=== PATIENT | male | born 1955 | race Caucasian/White ===

== ENCOUNTER 2018-08-18 16:43 | Observation (INO) | payer OTHER, SELFPAY ==
[2018-08-18] VITALS (8 sets, daily range): BP systolic 114–160; BP diastolic 55–119; PULSE 54–67; RESP 16–18; TEMP 36.4–37; O2SAT 93–99; BMI 29.0; BMI 29.1; BMI 28.8
--- NOTE | 2018-08-18 17:00 | EKG12_ITS ---
Test Reason : CP Blood Pressure : / mmHG Vent. Rate : 061 BPM Atrial Rate : 061 BPM P-R Int : 170 ms QRS Dur : 088 ms QT Int : 414 ms P-R-T Axes : 050 022 057 degrees QTc Int : 416 ms Normal sinus rhythm Normal ECG Confirmed by ENEIDA CURRIE MD ([id number]), photography editor TONY FRENCH ([id number]) on 08/23/2018 3:57:15 PM Referred By: HUE Confirmed By:ENEIDA CURRIE MD
--- NOTE | 2018-08-18 17:00 | RAD_ITS ---
STUDY: X-RAY CHEST REASON FOR EXAM: Male, 62 years old. Chest pain TECHNIQUE: Single AP portable view of the chest. COMPARISON: None. FINDINGS: There are monitoring devices. The lungs are hyperexpanded. There are lower lung groundglass and interstitial increased opacities. There is no demonstrated pleural abnormality. Normal size heart. Normal mediastinum and emelia. Normal visualized pulmonary arteries. Normal visualized aortic arch and descending thoracic aorta. Normal visualized thoracic spine. Normal visualized ribs, clavicles, and shoulders. There is no demonstrated abnormality of the visualized soft tissue structures of the upper abdomen. RAD/Chest 1 View (Portable) IMPRESSION: Lower lung edema or infiltrate. Electronically Signed: Indio Hogan MD at 17:26 EDT , Service support ,
[2018-08-18 17:23] LABS: Absolute Lymphocyte Count 1.39 X10^3/ul (0.83-4.51); Absolute Neutrophil Count 5.1 X10^3/uL (2.0-7.7); Basophil# 0.03 X10^3/uL; Basophil% 0.4 % (0-1); Eosinophil# 0.34 X10^3/uL; Eosinophils% 4.5 % (0-5); Hematocrit 46.4 % (40-54); Hemoglobin 16.2 g/dl (13.0-16.5); Lymphocyte # 1.39 X10^3/ul (4.0); Lymphocyte % 18.5 % (19-41); Mean Corp Hgb Conc 34.9 g/gl (32-36); Mean Corpuscular Hgb 29.6 pg (27.0-32.0); Mean Corpuscular Volume 84.7 fL (80-94); Mean Platelet Vol. 10.4 fl (6.2-12.0); Neutrophil # 5.13 X10^3/uL (2.7-7.7); Neutrophil % 68.3 % (47-70); Platelet Count 147 K/mm3 (150-450); RBC Distribution Width CV 13.5 % (11.6-14.6); RBC Distribution Width SD 41.4 fl (35.1-43.9); Red Blood Count 5.48 M/mm3 (4.6-6.2); White Blood Count 7.5 K/mm3 (4.4-11.0)
[2018-08-18 17:40] LABS: POSITIVE COUNT NO; POSITIVE DIFFERENTIAL NO; POSITIVE MORPHOLOGY NO
[2018-08-18 17:46] LABS: Anion Gap 6 (5-15); BUN 24 mg/dL (7-18); BUN/Creat Ratio 22.4 RATIO (10-20); Calcium,Total 9.3 mg/dL (8.5-10.1); Chloride 107 mmol/L (98-107); Creatinine, Serum 1.07 mg/dL (0.70-1.30); EST Glomerular Filtration Rate 74 mL/min (>60); Est Glom Filt Rate - Afr Amer 89 mL/min (>60); Estimated Creatinine Clearance 62.94 ml/min; Glucose 95 mg/dL (74-106); Potassium 4.2 mmol/L (3.5-5.1); Sodium Level 139 mmol/L (136-145)
--- NOTE | 2018-08-18 18:56 | ED.VISSUMM ---
- ER Visit Summary Date of Service: 08/18/18 Chief Complaint: [Chest pain] History of Present Illness: The patient is a 62 M [presents the emergency department complaint chest pain over the last 6 days. Patient's had intermittent discomfort that seems to be typically brought on by activity and exertion. Patient states at times he feels like both arms fall asleep. Patient's been feeling fatigued. Patient denies any recent travel or surgery. Patient does have a history of coronary artery disease with cardiac stents. He does have a history of hypertension and high cholesterol. He believes his stents were placed in 1992.] Physical Examination: [HEENT-PERRLA, EOMI. Cranial nerves II through XII grossly intact. TMs clear. Mucous membranes moist. No adenopathy. Cardiovascular-regular rate and rhythm without murmur or ectopy Lungs-clear to auscultation, chest wall stable without crepitus or subcu emphysema Abdomen-normoactive bowel sounds, soft, nontender, no rebound or rigidity, no peritoneal signs. Extremities-intact ?4, normal range of motion, normal pulses, atraumatic] Test Results: [EKG obtained arrival shows sinus rhythm with a ventricular rate of 61 bpm with no acute ST segment changes. CBC with differential is normal. Chemistries were normal. Troponin was less than 0.015. And chest x-ray was read by radiology as lower lung edema or infiltrates. Clinically I do not feel patient has pneumonia.] Emergency Department Course and Treatment: [Patient had taken aspirin prior to coming the emergency department 162 mg.] Treatment Plan: [Admit for further workup and evaluation] Disposition: [Admit] Impression: [Chest pain-rule out acute coronary syndrome] This note was generated with [employer] dictation software. It may contain incorrect words, spelling, and punctuation that were not noted in review of the chart prior to signing ED Disposition - Plan for ED Patient: Chief Complaint: Chest Pain Referrals: Jacob Jennings [Primary Care Provider] -
--- NOTE | 2018-08-18 19:18 | PCM.HP.STD ---
Problem List (1) Chest pain Status: Acute History of Present Illness Date of Admission: 08/18/18 Chief Complaint: chest pain The patient is a 62 year old M with a history of hypertension, hyperlipidemia and nicotine dependence. He was admitted through the ED on 08/18/2018 with a complaint of episodic chest pain over the past 6 days. He states chest pain is stabbing, retrosternal and left-sided, aggravated by exertion and relieved by rest. He also complains of worsening fatigue and mild shortness of breath. He denies any recent history of long distance travel, any surgery or any history of DVT or PE. He does have a history of coronary artery disease status post 5 stents the last of which was he states was in 1992 in [facility]. He denies any lightheadedness or dizziness, any palpitations, abdominal pain, shortness of breath, any diarrhea vomiting. EKG done in the ED showed no acute ST changes and CBC and CMP were unremarkable. Initial troponin was negative. Chest x-ray showed lower lung edema or infiltrate. Radiology reading. He has been admitted to be managed for chest pain to rule out ACS. [] Past Medical History Allergies No Known Allergies Allergy (Verified 08/18/18 18:15) Home Medications: Ambulatory Orders Medication Instructions Recorded Aspirin E.C. [Ecotrin] 81 mg PO DAILY 08/18/18 Atenolol 50 mg PO DAILY 08/18/18 Enalapril Maleate 20 mg PO DAILY 08/18/18 Enalapril Maleate [Vasotec] 10 mg PO DAILY 08/18/18 Rosuvastatin Calcium [Crestor] 40 mg PO DAILY 08/18/18 Surgical History: no surgical history Psychiatric History: No pertinent psych hx Lives: Spouse/ Significant Other Smoking Status: Current every day smoker Tobacco Use: Cigarettes - 2 packs daily for ~ 40 years Alcohol: Occasional Drugs: None - *Family History Paternal History Items: Diabetes, Heart Disease, Hypertension Review of Systems Constitutional: Denies: Chills, Fever, Weight Change Eyes: Denies: Blurred vision HEENT: Denies: Head Aches, Sinus Congestion, Sinus Drainage Cardiovascular: Reports: Chest Pain. Denies: Chest Pressure, Chest Tightness, Edema, Light Headedness, Orthopnea, Palpitations, Paroxysmal Noc. Dyspnea, Syncope Respiratory: Reports: Shortness of breath upon exertion. Denies: Cough, Shortness of Breath, Shortness of breath at rest, Sputum production Gastrointestinal: Denies: Abdominal Pain, Nausea, Vomiting Genitourinary: Denies: Dysuria Musculoskeletal: Denies: Joint Pain, Joint Tenderness Skin: Denies: Rash, Wounds Neurological: Denies: Numbness, Tingling, Focal weakness Psychiatric: Denies: Anxiety, Depression, Homicidal Ideations, Suicidal Ideations Hematologic/ Lymphatic: Denies: Easy Bruising, Easy Bleeding VTE Information - Inpt Only VTE Present on Admission: No VTE Mechan Device Prophylaxis: None VTE Pharm Prophylaxis ordered?: Yes Patient Problems: Active and Suspected Problems Chest pain (Acute) - Physical Exam General: Alert, Oriented x3, Cooperative, No apparent distress HEENT: Atraumatic, PERRLA, EOMI, Normocephalic Oral: Moist Mucosa Neck: Supple, No JVD, Negative Carotid Bruits Lungs: Clear to auscultation, Normal air movement, No rhonchi, No wheeze, No rales Cardiovascular: Regular rate, Regular Rhythm, Normal S1, Normal S2, No murmurs Abdomen: Bowel Sounds Present, Soft, Non Tender, Non-Distended, No Hepato-splenomegaly Extremities: No clubbing, No cyanosis, No edema, Capillary Refill Less than 3 Seconds Skin: No rashes, No breakdown Musculoskeletal: No Tenderness to Palpation of Joints or Extremities Lymphatic: No Cervical, Supraclavicular, or Inguinal Adenopathy Neurological: Cranial nerves II-XII grossly intact, Neuro grossly intact, Motor Exam 5/5 strength throughout Psych/Mental Status: Normal Affect, Appropriate, Alert and oriented to time, place, person, mood and affect Vital Signs Temp Pulse Resp BP Pulse Ox 97.5 F L 59 L 16 160/73 H 98 08/18/18 16:44 08/18/18 16:44 08/18/18 16:44 08/18/18 16:44 08/18/18 17:01 Oxygen Delivery Method Room Air Weight: 180 lb Body Mass Index (BMI) 29.0 Laboratory Tests Past 24 Hrs 08/18/18 08/18/18 17:05 17:05 WBC 7.5 RBC 5.48 Hgb 16.2 Hct 46.4 MCV 84.7 MCH 29.6 MCHC 34.9 RDW 13.5 RDW Differential 41.4 Plt Count 147 L MPV 10.4 Immature Gran % (Auto) 0.300 Neut % (Auto) 68.3 Lymph % (Auto) 18.5 L [place] % (Auto) 8.0 Eos % (Auto) 4.5 Baso % (Auto) 0.4 Absolute Neuts (auto) 5.1 Absolute Lymphs (auto) 1.39 Total Counted Not Reportable Sodium 139 Potassium 4.2 Chloride 107 Carbon Dioxide 26.0 Anion Gap 6 BUN 24 H Creatinine 1.07 Estim Creat Clear Calc 62.94 Est GFR (MDRD) Af Amer 89 Est GFR (MDRD) Non-Af 74 BUN/Creatinine Ratio 22.4 H Glucose 95 Calcium 9.3 Troponin I < 0.015 Assessment/Plan All Active Problems Chest pain (Acute) 62-year-old male with a history of CAD status post stents, hypertension hyperlipidemia presenting with a 6-day history of episodic chest pain. 1. Atypical chest pain, to rule out ACS admit to PCU with telemetry SL nitroglycerin prn aspirin 81mg daily check lipid panel and A1C cycle troponins stress test tomorrow morning 2. CAD status post stents Had 5 stents placed last one in 1992 at [facility]. On aspirin and rosuvastatin. Will continue. 3. Hypertension: Fairly controlled. On atenolol 50 mg daily and enalapril 30 mg daily. 4. Nicotine dependence: Smokes 2 packs daily for the past 40 years. Patient counseled extensively to quit. Inpatient smoking consult. Nicotine patch 21 mg daily. DVT prophylaxis: Heparin CODE STATUS: Full code Patient and counseled extensively about differences between full code, DNR CCA and DNR CCA. Patient elects to be full code. Total [id number] time 17 minutes. Code Visit OBSV E&M: 01105 Initial observation care L3 Procedures: 30028 Advncd Care Plan 30 Min
[2018-08-18] MEDS: Heparin Injection (Vial) 5,000 UNIT/ML VIAL 5000 UNIT SC (21:45)
--- NOTE | 2018-08-18 21:45 | EKG12_ITS ---
Test Reason : ADMISSION EKG Blood Pressure : / mmHG Vent. Rate : 058 BPM Atrial Rate : 058 BPM P-R Int : 180 ms QRS Dur : 084 ms QT Int : 442 ms P-R-T Axes : 059 028 061 degrees QTc Int : 433 ms Sinus bradycardia Otherwise normal ECG When compared with ECG of 18-AUG-2018 16:48, MANUAL COMPARISON REQUIRED, DATA IS UNCONFIRMED Confirmed by ROSEY BAUTISTA, ENEIDA ([id number]), purchasing expeditor TONY FRENCH ([id number]) on 08/23/2018 4:07:00 PM Referred By: BRANDAN Confirmed By:ENEIDA CURRIE MD
[2018-08-19 03:04] VITALS: PULSE 57
[2018-08-19 03:43] VITALS: BP 141/66; PULSE 60; RESP 14; TEMP 36.9; O2SAT 93
[2018-08-19 05:33] VITALS: BP 130/70; PULSE 61; RESP 16; TEMP 36.5; O2SAT 93
[2018-08-19] MEDS: Aspirin 81 MG TAB.CHEW PO (05:38)
[2018-08-19] MEDS: Lisinopril 10 MG Tablet 30 MG PO (05:38)
--- NOTE | 2018-08-19 05:55 | EKG12_ITS ---
Test Reason : AM EKG Blood Pressure : / mmHG Vent. Rate : 057 BPM Atrial Rate : 057 BPM P-R Int : 186 ms QRS Dur : 088 ms QT Int : 436 ms P-R-T Axes : 071 029 056 degrees QTc Int : 424 ms Sinus bradycardia Otherwise normal ECG When compared with ECG of 18-AUG-2018 20:10, MANUAL COMPARISON REQUIRED, DATA IS UNCONFIRMED Confirmed by ROSEY BAUTISTA, ENEIDA ([id number]), senior technical editor TONY FRENCH ([id number]) on 08/23/2018 4:03:56 PM Referred By: ILEANA Confirmed By:EENIDA CURRIE MD
[2018-08-19 06:44] LABS: Absolute Lymphocyte Count 1.45 X10^3/ul (0.83-4.51); Absolute Neutrophil Count 5.4 X10^3/uL (2.0-7.7); Basophil# 0.03 X10^3/uL; Basophil% 0.4 % (0-1); Eosinophil# 0.33 X10^3/uL; Eosinophils% 4.2 % (0-5); Hematocrit 46.1 % (40-54); Hemoglobin 16.1 g/dl (13.0-16.5); Lymphocyte # 1.45 X10^3/ul (4.0); Lymphocyte % 18.4 % (19-41); Mean Corp Hgb Conc 34.9 g/gl (32-36); Mean Corpuscular Hgb 29.4 pg (27.0-32.0); Mean Corpuscular Volume 84.1 fL (80-94); Mean Platelet Vol. 10.9 fl (6.2-12.0); Monocyte# 0.61 X10^3/uL; Monocyte% 7.7 % (0-10); Neutrophil # 5.41 X10^3/uL (2.7-7.7); Neutrophil % 68.7 % (47-70); Platelet Count 156 K/mm3 (150-450); RBC Distribution Width CV 13.8 % (11.6-14.6); RBC Distribution Width SD 42.3 fl (35.1-43.9); Red Blood Count 5.48 M/mm3 (4.6-6.2); White Blood Count 7.9 K/mm3 (4.4-11.0)
[2018-08-19 06:47] LABS: POSITIVE COUNT NO; POSITIVE DIFFERENTIAL NO; POSITIVE MORPHOLOGY NO
[2018-08-19 06:50] LABS: Prothrombin Time (Protime)PT. 12.9 SECONDS (11.7-14.9)
[2018-08-19 06:51] LABS: Partial Thromboplast Time 29.3 Seconds (24.1-36.2)
[2018-08-19 07:11] LABS: Anion Gap 7 (5-15); BUN 26 mg/dL (7-18); BUN/Creat Ratio 23.6 RATIO (10-20); Chloride 108 mmol/L (98-107); Cholesterol 144 mg/dL (200); EST Glomerular Filtration Rate 71 mL/min (>60); Est Glom Filt Rate - Afr Amer 86 mL/min (>60); Estimated Creatinine Clearance 61.22 ml/min; Glucose 83 mg/dL (74-106); High Density Lipoprotein 33 mg/dL; Sodium Level 139 mmol/L (136-145); Triglycerides 125 mg/dL; Very Low Density Lipoprotein 25 mg/dL (5-40)
[2018-08-19 07:54] LABS: Hemoglobin A1c 5.4 % (4.2-6.3)
[2018-08-19 08:31] VITALS: PULSE 65
--- NOTE | 2018-08-19 09:17 | STRESSREP_ITS ---
Stress Test Report Date: 08/19/2018 Procedure: Exercise tolerance test/imaging study Indications: Chest pain; CAD; PCI Consent: Per the patient Procedure: The patient exercised on a Thaddeus protocol for 5 minutes completing Stage I and 2 minutes of Stage II achieving a peak heart rate of 131 bpm (83 % predicted maximal heart rate) with a peak blood pressure 180/82 mmHg and a peak MET capacity of 7 METs. The baseline ECG demonstrated normal sinus rhythm. The peak exercise ECG demonstrated somatic/motion artifact with no obvious ECG changes. There were occasional PACs and PVCs during exercise. The functional capacity was considered average. There was no complaint of chest discomfort during exercise or recovery. The examination was discontinued secondary to leg discomfort. Impression: 1. Technically inadequate (percent predicted maximal heart rate less than 85%) exercise tolerance test 2. Peak exercise ECG with somatic/motion artifact with no obvious ECG changes at the heart rate achieved 3. There were occasional PACs and PVCs during exercise 4. Nuclear images pending Myocardial perfusion imaging study: Technique: The patient was injected with 11.4 mCi of technetium 99m Cardiolite and subsequently rest SPECT Cardiolite nuclear imaging was obtained in the horizontal long, vertical long, and short axis views. The patient exercised on a Thaddeus protocol for 5 minutes completing Stage I and 2 minutes of Stage II achieving a peak heart rate of 131 bpm (83 % predicted maximal heart rate) with a peak blood pressure 180/82 mmHg and a peak MET capacity of 7 METs. The patient was injected with 33.7 mCi of technetium 99m Cardiolite and subsequently stress SPECT Cardiolite nuclear imaging was obtained in the horizontal long, vertical long, and short axis views. A gated Cardiolite study at peak stress was obtained. Interpretation: Rest and stress SPECT Cardiolite nuclear imaging status post realignment, normalization, and attenuation correction, demonstrates areas of extracardiac/gastrointestinal tracer uptake at rest, otherwise, there appears to be relative uniform tracer uptake and myocardial perfusion appearing within normal limits. There is end systolic thickening and brightening. The gated Cardiolite study demonstrates myocardial thickening and inward wall motion. The reported LVEF is 86 %. Impression: 1. Rest and stress SPECT Cardiolite nuclear imaging demonstrate relative uniform tracer uptake and myocardial perfusion appearing within normal limits at the heart rate achieved. 2. The gated Cardiolite study reports an LVEF of 86 %. This note was generated with [employer] software. It may contain incorrect words, spelling, and punctuation that were not noted in checking the note before signing.
--- NOTE | 2018-08-19 10:14 | PCM.DC ---
- Discharge Diagnoses Current Active Problems: Current Active and Chronic Problems Chest pain (Acute) You will use the following diet at home:: Cardiac Your food should be the consistency of: Regular Discharge Activity: Return to Normal Activity Instructions: ED Chest Pain NonCardiac Allergies/Adverse Reactions: Allergies No Known Allergies Allergy (Verified 08/18/18 18:15) Medications to take at Discharge Aspirin E.C. [Ecotrin] 81 mg PO DAILY 08/18/18 Atenolol 50 mg PO DAILY 08/18/18 Enalapril Maleate 20 mg PO DAILY 08/18/18 Enalapril Maleate [Vasotec] 10 mg PO DAILY 08/18/18 Rosuvastatin Calcium [Crestor] 40 mg PO DAILY 08/18/18 Primary Care Physician: Jacob Jennings [Primary Care Provider] - Please follow up with your Primary Care Physician in: in 1-2 weeks Test Results: Test results from this visit will be discussed in further detail at your follow-up appointment, if applicable. Proposed Discharge Date: 08/19/18
--- NOTE | 2018-08-19 10:17 | DCINST_ITS ---
- Discharge Diagnoses Current Active Problems: Current Active and Chronic Problems Chest pain (Acute) You will use the following diet at home:: Cardiac Your food should be the consistency of: Regular Discharge Activity: Return to Normal Activity Instructions: ED Chest Pain NonCardiac Allergies/Adverse Reactions: Allergies No Known Allergies Allergy (Verified 08/18/18 18:15) Medications to take at Discharge Aspirin E.C. [Ecotrin] 81 mg PO DAILY 08/18/18 Atenolol 50 mg PO DAILY 08/18/18 Enalapril Maleate 20 mg PO DAILY 08/18/18 Enalapril Maleate [Vasotec] 10 mg PO DAILY 08/18/18 Rosuvastatin Calcium [Crestor] 40 mg PO DAILY 08/18/18 Primary Care Physician: Jacob Jennings [Primary Care Provider] - Please follow up with your Primary Care Physician in: in 1-2 weeks Test Results: Test results from this visit will be discussed in further detail at your follow- up appointment, if applicable. Proposed Discharge Date: 08/19/18
--- NOTE | 2018-08-19 10:21 | PCM.DC.SUM ---
Discharge Date and Diagnosis Date of Admission: 08/18/18 Date of Discharge: 08/19/18 - Primary Discharge Diagnosis Active and Suspected Problems Chest pain (Acute) Hospital Course and Treatment Imaging Results: 08/19/18 05:55 Nuclear Stress Test - Treadmil [NM] AM (NON MEDS) Summary of Care Provided: The patient is a 62 year old M with past medical history significant for hypertension, dyslipidemia tobacco dependence presented with chest pain 1. Chest pain patient was placed in a monitored bed did rule out [place] with serial cardiac enzymes subsequently underwent a nuclear stress test which is negative for stress-induced ischemia. Patient was advised to have a trial of PPI on discharge initiate this persisted follow-up with PCP for subsequent evaluation including EGD 2. Dyslipidemia-patient is on statin therapy, continued at home dose 3. Hypertension-blood pressure controlled, home medications continued with dose adjustment as needed 4. Tobacco dependence counseled on cessation, offered nicotine patch for tobacco cravings - Physical Exam General: Alert HEENT: Atraumatic Neck: Supple, No JVD Neurological: Neuro grossly intact Psych/Mental Status: Normal Affect Vital Signs Temp Pulse Resp BP Pulse Ox 97.7 F L 65 16 130/70 H 93 08/19/18 05:33 08/19/18 08:31 08/19/18 05:33 08/19/18 05:33 08/19/18 05:33 Oxygen Delivery Method Room Air Weight: 81 kg Body Mass Index (BMI) 28.8 Intake and Output for Last 24 Hours 08/17/18 08/18/18 08/19/18 23:59 23:59 23:59 Intake Total 120 / 120 Balance 120 / 120 Laboratory Tests Past 24 Hrs 08/18/18 08/18/18 08/18/18 17:05 17:05 20:40 WBC 7.5 RBC 5.48 Hgb 16.2 Hct 46.4 MCV 84.7 MCH 29.6 MCHC 34.9 RDW 13.5 RDW Differential 41.4 Plt Count 147 L MPV 10.4 Immature Gran % (Auto) 0.300 Neut % (Auto) 68.3 Lymph % (Auto) 18.5 L [place] % (Auto) 8.0 Eos % (Auto) 4.5 Baso % (Auto) 0.4 Absolute Neuts (auto) 5.1 Absolute Lymphs (auto) 1.39 Total Counted Not Reportable PT INR APTT Sodium 139 Potassium 4.2 Chloride 107 Carbon Dioxide 26.0 Anion Gap 6 BUN 24 H Creatinine 1.07 Estim Creat Clear Calc 62.94 Est GFR (MDRD) Af Amer 89 Est GFR (MDRD) Non-Af 74 BUN/Creatinine Ratio 22.4 H Glucose 95 Hemoglobin A1c Calcium 9.3 Troponin I < 0.015 < 0.015 Triglycerides Cholesterol LDL Cholesterol VLDL Cholesterol HDL Cholesterol 08/19/18 08/19/18 08/19/18 00:09 05:45 05:45 WBC 7.9 RBC 5.48 Hgb 16.1 Hct 46.1 MCV 84.1 MCH 29.4 MCHC 34.9 RDW 13.8 RDW Differential 42.3 Plt Count 156 MPV 10.9 Immature Gran % (Auto) 0.600 Neut % (Auto) 68.7 Lymph % (Auto) 18.4 L [place] % (Auto) 7.7 Eos % (Auto) 4.2 Baso % (Auto) 0.4 Absolute Neuts (auto) 5.4 Absolute Lymphs (auto) 1.45 Total Counted Not Reportable PT INR APTT Sodium 139 Potassium 4.0 Chloride 108 H Carbon Dioxide 24.0 Anion Gap 7 BUN 26 H Creatinine 1.10 Estim Creat Clear Calc 61.22 Est GFR (MDRD) Af Amer 86 Est GFR (MDRD) Non-Af 71 BUN/Creatinine Ratio 23.6 H Glucose 83 Hemoglobin A1c Calcium 9.0 Troponin I < 0.015 Triglycerides 125 Cholesterol 144 LDL Cholesterol 86 VLDL Cholesterol 25 HDL Cholesterol 33 L 08/19/18 08/19/18 05:45 05:45 WBC RBC Hgb Hct MCV MCH MCHC RDW RDW Differential Plt Count MPV Immature Gran % (Auto) Neut % (Auto) Lymph % (Auto) [place] % (Auto) Eos % (Auto) Baso % (Auto) Absolute Neuts (auto) Absolute Lymphs (auto) Total Counted PT 12.9 INR 1.0 APTT 29.3 Sodium Potassium Chloride Carbon Dioxide Anion Gap BUN Creatinine Estim Creat Clear Calc Est GFR (MDRD) Af Amer Est GFR (MDRD) Non-Af BUN/Creatinine Ratio Glucose Hemoglobin A1c 5.4 Calcium Troponin I Triglycerides Cholesterol LDL Cholesterol VLDL Cholesterol HDL Cholesterol Discharge Diet: Low fat/ Low Cholesterol Discharge Activity: Return to Normal Activity Home Medications: Medications to take at Discharge Aspirin E.C. [Ecotrin] 81 mg PO DAILY 08/18/18 Atenolol 50 mg PO DAILY 08/18/18 Enalapril Maleate 20 mg PO DAILY 08/18/18 Enalapril Maleate [Vasotec] 10 mg PO DAILY 08/18/18 Rosuvastatin Calcium [Crestor] 40 mg PO DAILY 08/18/18 Primary Care Physician: Jacob Jennings [Primary Care Provider] - Please follow up with your Primary Care Physician in: in 1-2 weeks Patient Instructions: ED Chest Pain NonCardiac Disposition: Home Minutes spent on discharge:: 35 Patient Condition:: Stable Medical Necessity - Tobacco Use Smoking Status: Current every day smoker Tobacco Use: Cigarettes Meaningful Use Info Meaningful Use Diagnoses (Choose all that apply): None applicable Code Visit OBSV E&M: 63835 Observation care discharge
--- NOTE | 2018-08-19 10:26 | DS.PCM_ITS ---
Discharge Date and Diagnosis Date of Admission: 08/18/18 Date of Discharge: 08/19/18 - Primary Discharge Diagnosis Active and Suspected Problems Chest pain (Acute) Hospital Course and Treatment Imaging Results: 08/19/18 05:55 Nuclear Stress Test - Treadmil [NM] AM (NON MEDS) Summary of Care Provided: The patient is a 62 year old M with past medical history significant for hypertension, dyslipidemia tobacco dependence presented with chest pain 1. Chest pain patient was placed in a monitored bed did rule out [place] with serial cardiac enzymes subsequently underwent a nuclear stress test which is negative for stress-induced ischemia. Patient was advised to have a trial of PPI on discharge initiate this persisted follow-up with PCP for subsequent evaluation including EGD 2. Dyslipidemia-patient is on statin therapy, continued at home dose 3. Hypertension-blood pressure controlled, home medications continued with dose adjustment as needed 4. Tobacco dependence counseled on cessation, offered nicotine patch for tobacco cravings - Physical Exam General: Alert HEENT: Atraumatic Neck: Supple, No JVD Neurological: Neuro grossly intact Psych/Mental Status: Normal Affect Vital Signs Temp Pulse Resp BP Pulse Ox 97.7 F L 65 16 130/70 H 93 08/19/18 05:33 08/19/18 08:31 08/19/18 05:33 08/19/18 05:33 08/19/18 05:33 Oxygen Delivery Method Room Air Weight: 81 kg Body Mass Index (BMI) 28.8 Intake and Output for Last 24 Hours 08/17/18 08/18/18 08/19/18 23:59 23:59 23:59 Intake Total 120 / 120 Balance 120 / 120 Laboratory Tests Past 24 Hrs 08/18/18 08/18/18 08/18/18 17:05 17:05 20:40 WBC 7.5 RBC 5.48 Hgb 16.2 Hct 46.4 MCV 84.7 MCH 29.6 MCHC 34.9 RDW 13.5 RDW Differential 41.4 Plt Count 147 L MPV 10.4 Immature Gran % (Auto) 0.300 Neut % (Auto) 68.3 Lymph % (Auto) 18.5 L [place] % (Auto) 8.0 Eos % (Auto) 4.5 Baso % (Auto) 0.4 Absolute Neuts (auto) 5.1 Absolute Lymphs (auto) 1.39 Total Counted Not Reportable PT INR APTT Sodium 139 Potassium 4.2 Chloride 107 Carbon Dioxide 26.0 Anion Gap 6 BUN 24 H Creatinine 1.07 Estim Creat Clear Calc 62.94 Est GFR (MDRD) Af Amer 89 Est GFR (MDRD) Non-Af 74 BUN/Creatinine Ratio 22.4 H Glucose 95 Hemoglobin A1c Calcium 9.3 Troponin I < 0.015 < 0.015 Triglycerides Cholesterol LDL Cholesterol VLDL Cholesterol HDL Cholesterol 08/19/18 08/19/18 08/19/18 00:09 05:45 05:45 WBC 7.9 RBC 5.48 Hgb 16.1 Hct 46.1 MCV 84.1 MCH 29.4 MCHC 34.9 RDW 13.8 RDW Differential 42.3 Plt Count 156 MPV 10.9 Immature Gran % (Auto) 0.600 Neut % (Auto) 68.7 Lymph % (Auto) 18.4 L [place] % (Auto) 7.7 Eos % (Auto) 4.2 Baso % (Auto) 0.4 Absolute Neuts (auto) 5.4 Absolute Lymphs (auto) 1.45 Total Counted Not Reportable PT INR APTT Sodium 139 Potassium 4.0 Chloride 108 H Carbon Dioxide 24.0 Anion Gap 7 BUN 26 H Creatinine 1.10 Estim Creat Clear Calc 61.22 Est GFR (MDRD) Af Amer 86 Est GFR (MDRD) Non-Af 71 BUN/Creatinine Ratio 23.6 H Glucose 83 Hemoglobin A1c Calcium 9.0 Troponin I < 0.015 Triglycerides 125 Cholesterol 144 LDL Cholesterol 86 VLDL Cholesterol 25 HDL Cholesterol 33 L 08/19/18 08/19/18 05:45 05:45 WBC RBC Hgb Hct MCV MCH MCHC RDW RDW Differential Plt Count MPV Immature Gran % (Auto) Neut % (Auto) Lymph % (Auto) [place] % (Auto) Eos % (Auto) Baso % (Auto) Absolute Neuts (auto) Absolute Lymphs (auto) Total Counted PT 12.9 INR 1.0 APTT 29.3 Sodium Potassium Chloride Carbon Dioxide Anion Gap BUN Creatinine Estim Creat Clear Calc Est GFR (MDRD) Af Amer Est GFR (MDRD) Non-Af BUN/Creatinine Ratio Glucose Hemoglobin A1c 5.4 Calcium Troponin I Triglycerides Cholesterol LDL Cholesterol VLDL Cholesterol HDL Cholesterol Discharge Diet: Low fat/ Low Cholesterol Discharge Activity: Return to Normal Activity Home Medications: Medications to take at Discharge Aspirin E.C. [Ecotrin] 81 mg PO DAILY 08/18/18 Atenolol 50 mg PO DAILY 08/18/18 Enalapril Maleate 20 mg PO DAILY 08/18/18 Enalapril Maleate [Vasotec] 10 mg PO DAILY 08/18/18 Rosuvastatin Calcium [Crestor] 40 mg PO DAILY 08/18/18 Primary Care Physician: Jacob Jennings [Primary Care Provider] - Please follow up with your Primary Care Physician in: in 1-2 weeks Patient Instructions: ED Chest Pain NonCardiac Disposition: Home Minutes spent on discharge:: 35 Patient Condition:: Stable Medical Necessity - Tobacco Use Smoking Status: Current every day smoker Tobacco Use: Cigarettes Meaningful Use Info Meaningful Use Diagnoses (Choose all that apply): None applicable Code Visit OBSV E&M: 70990 Observation care discharge
[2018-08-19 10:29] VITALS: PULSE 69
[2018-08-19 11:09] VITALS: BP 122/57; PULSE 68; RESP 18; TEMP 36.1; O2SAT 96
== END 2018-08-19 10:17 | disposition home or self-care (01) ==
LOC: ED 18:18 → PCU 19:31
PROVIDERS: Admitting Provider Student in an Organized Health Care Education/Training Program; Emergency Provider Emergency Medicine; Family Provider Family Medicine; PCP Family Medicine; Visit Provider Internal Medicine
DX: R07.89 Other chest pain (principal); I25.10 Atherosclerotic heart disease of native coronary artery without angina pectoris; I10 Essential (primary) hypertension; R53.83 Other fatigue; R06.02 Shortness of breath; E78.5 Hyperlipidemia, unspecified; F17.210 Nicotine dependence, cigarettes, uncomplicated; Z95.5 Presence of coronary angioplasty implant and graft; Z79.899 Other long term (current) drug therapy; Z79.82 Long term (current) use of aspirin
CPT/HCPCS: 36415; 71045; 78452; 80048; 80061; 83036; 84484; 85025; 85610; 85730; 93005; 93017; 96372; 99218; 99283; 99406; A9500; A4216; G0378

== ENCOUNTER → 2021-04-18 12:04 | Outpatient (CLI) | payer MEDICARE, OTHER, SELFPAY ==
[2021-04-16 16:07] VITALS: BMI 30.4
--- NOTE | 2021-04-18 12:07 | US_ITS ---
STUDY: RENAL ULTRASOUND - COMPLETE REASON FOR EXAM: Male, 65 years old. H/O LEFT KIDNEY CANCER RESECTED 2005 -- BILATERAL KIDNEY U/S . The patient is status post left nephrectomy. TECHNIQUE: Ultrasound evaluation of the kidneys was performed with real-time and static merritt-scale imaging. COMPARISON: None. FINDINGS: RIGHT KIDNEY: Normal location of the right kidney, which is normal in size. The right kidney measures 13.1 cm x 6.7 cm x 7.7 cm. There is a normal cortex of the right kidney. The renal cortex measures 2.2 cm. There is a 1.2 cm x 1.6 x 1.3 cm echogenic nodule in the inferior medial portion of the right kidney suggestive of a small angiomyolipoma. In the medial portion of the right kidney, there is a 4.4 cm x 3 cm x 3.1 cm solid nodule. A similar appearing nodules also seen measuring 2.5 cm by 3.6 cm by 1.8 cm. There is also a 1 cm x 1.2 cm x 1.2 cm cyst in the lower pole. There are no right renal calculi. There is no right hydronephrosis. DISTAL RIGHT URETER: There is non-visualization of the distal right ureter. There is no demonstrated right ureterovesical junction calculus. There is a visualized right ureteral jet. LEFT KIDNEY: The patient is status post left nephrectomy. BLADDER: The distended urinary bladder has a volume of 274 ml. There is a normal wall thickness of the distended urinary bladder. There is no demonstrated mass within the urinary bladder. There are no demonstrated bladder calculi. US/Kidney and Bladder IMPRESSION: Status post left nephrectomy. 2. Hypoechoic solid nodules seen in the right kidney as described. Neoplastic process should be ruled out. Correlation with a CT scan is recommended for further evaluation. 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 Electronically Signed: Musa Crooks MD at 14:12 EDT , Service support ,
== END ==
PROVIDERS: PCP Family Medicine; Referring Provider Internal Medicine Hematology & Oncology; Visit Provider Internal Medicine Hematology & Oncology
DX: C34.31 Malignant neoplasm of lower lobe, right bronchus or lung (principal); C64.9 Malignant neoplasm of unspecified kidney, except renal pelvis; C77.9 Secondary and unspecified malignant neoplasm of lymph node, unspecified; C78.00 Secondary malignant neoplasm of unspecified lung; Z85.528 Personal history of other malignant neoplasm of kidney
CPT/HCPCS: 76770

== ENCOUNTER → 2021-05-02 13:45 | Outpatient (CLI) | payer MEDICARE, OTHER, SELFPAY ==
[2021-04-23 10:24] VITALS: BMI 31.1
[2021-04-30 09:07] VITALS: BMI 31.1
--- NOTE | 2021-05-02 13:48 | CT_ITS ---
STUDY: CT ABDOMEN AND PELVIS WITH CONTRAST REASON FOR EXAM: Male, 65 years old. RIGHT KIDNEY CANCER -- PT TO RECEIVE IV FLUIDS AFTER CT AT [facility] RADIATION DOSAGE (If Supplied By Facility): CTDIvol = ( 18.70 ) mGy, DLP = ( 1867.16 ) mGycm TECHNIQUE: Transaxial images were obtained from the dome of the diaphragm to the symphysis pubis without oral contrast. IV 100mL Isovue-300 was administered. Sagittal and coronal images were reconstructed. Individualized dose optimization techniques were used for this CT. COMPARISON: None. FINDINGS: Small right pleural effusion. The visualized portions of the heart are within normal limits. Normal liver. Normal gallbladder and extrahepatic biliary system. Normal spleen. Normal pancreas. 3 x 5 cm necrotic enhancing mass of the right adrenal gland worrisome for metastasis. 2.2 cm peripherally enhancing solid mass within the posterior cortex of the midsection right kidney worrisome for primary renal cell carcinoma or metastasis. Status post left nephrectomy. Normal visualized stomach. Normal small intestine. Normal colon. The appendix is visualized and appears normal. There is diffuse atherosclerotic calcification of the abdominal aorta, without a demonstrated aneurysm. Normal inferior vena cava. Normal retroperitoneum. Normal urinary bladder. There are prostatic calcifications. Large left-sided medially in hernia containing a portion of the descending colon and multiple loops of small bowel without bowel obstruction. Normal osseous structures. CT/Abdomen/Pelvis W IV Cont ONLY IMPRESSION: 1. Small right pleural effusion. 2. Solid enhancing masses of the right kidney and right adrenal gland worrisome for metastatic renal cell carcinoma. No retroperitoneal lymphadenopathy. 3. Large left medially in hernia containing a segment of the descending colon and small bowel without bowel obstruction. Electronically Signed: Joe Sanchez MD at 15:19 EDT Tel , Service support ,
== END ==
PROVIDERS: PCP Family Medicine; Referring Provider Internal Medicine Hematology & Oncology; Visit Provider Internal Medicine Hematology & Oncology
DX: C64.1 Malignant neoplasm of right kidney, except renal pelvis (principal); C34.91 Malignant neoplasm of unspecified part of right bronchus or lung; R07.9 Chest pain, unspecified
CPT/HCPCS: 74177; 96360; J7040; Q9967; A4216

== ENCOUNTER 2021-05-03 10:30 | Day surgery (SDC) | payer MEDICARE, OTHER, SELFPAY ==
[2021-04-30 09:07] VITALS: BMI 31.1
[2021-05-02 14:28] VITALS: BMI 31.1
[2021-05-03] VITALS (7 sets, daily range): BP systolic 124–148; BP diastolic 62–77; PULSE 59–67; RESP 16–18; TEMP 36.1–37.2; O2SAT 94–99; BMI 31.7
--- NOTE | 2021-05-03 11:13 | PCM.HP.BLA ---
History and Physical Date of Admission: 05/03/21 Date of Service: 04/30/21 MR#:[id number] Acct:[id number] Name: KENN IRAHETA :1955 Age/Sex: 65/M Rep #:[id number] Provider:Dr. 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 Accompanied by: Is patient in pain?: No Allergies No Known Allergies Allergy (Verified 04/30/21 09:06) Medications aspirin 81 mg PO DAILY 08/18/18 [History Confirmed 04/30/21] rosuvastatin [Crestor] 40 mg PO DAILY 08/18/18 [History Confirmed 04/30/21] carvedilol 25 mg tablet 25 mg PO BID 04/30/21 [History Confirmed 04/30/21] enalapril maleate 20 mg tablet 20 mg PO BID 04/30/21 [History Confirmed 04/30/21] esomeprazole magnesium 20 mg capsule,delayed release 20 mg PO DAILY 04/30/21 [History Confirmed 04/30/21] lidocaine-prilocaine 2.5 %-2.5 % topical cream 1 applic TOPICAL ONCE PRN 30 Days #30 g 04/30/21 [Rx Confirmed 04/30/21] ondansetron 4 mg disintegrating tablet 4 mg PO Q8H PRN #30 tab 04/30/21 [Rx Confirmed 04/30/21] PFSH Medical History Abnormal colonoscopy Adenocarcinoma of right lung CAD (coronary artery disease) COPD (chronic obstructive pulmonary disease) DDD (degenerative disc disease) Essential (primary) hypertension History of primary malignant neoplasm of left kidney Skin cancer Surgical History History of coronary angioplasty History of lobectomy of lung History of nephrectomy, left Family History Sister Diabetes CAD (coronary artery disease) Mother CVA (cerebral vascular accident) CAD (coronary artery disease) Lung cancer Father CAD (coronary artery disease) Brother CAD (coronary artery disease) Social History Smoking Status: Former smoker Tobacco: How many years used: 40 second hand exposure: No alcohol intake: current details: 14 cans per week 4 or more times a week substance use type: does not use seatbelt use: always do you feel safe at home: Yes HPI HPI HPI: KENN IRAHETA, is a 65 M who presents to the office today for port for immune suppression therapy. The patient has malignant renal cell carcinoma to the right lung. He needs port for treatment. ROS General General: No weight change, appetite, fatigue, colon cancer, breast cancer or weakness HEENT HEENT: No difficulty swallowing, eye injury, eye surgery, swollen glands or hoarseness Endo Endocrine: No thyroid disease, diabetes mellitus, thyroid cancer, Hair loss, heat intolerance or cold intolerance Skin Skin: No rash or changing moles Musc Musculoskeletal: No back problems, arthritis, rheumatoid arthritis, gout or joint pain Cardio Cardiovascular: Yes high blood pressure and heart stent; No murmur, pacemaker, heart disease, atrial fibrillation, heart attack, palpitations, shortness of breat with exertion or chest pain Psych Psychiatric: No depression, anxiety or hearing voices Resp Respiratory: No shortness of breath, No sleep apnea, No cough, No COPD, No asthma, No emphysema and No wheezing Gastro Gastrointestinal: No abdominal pain, No nausea or vomiting, No diarrhea, No constipation, No blood in stool, No acid reflux, No hemorrhoids, No ulcers, No gallbladder problem and No black,tarry stools [place] Hematologic: No blood thinners, No blood disorders, No bleeding, No anemia and No blood clots Neuro Neurologic: No weakness Exam Const General: cooperative Orientation: alert and oriented x3 HENMT Head: normal to inspection Neck Neck: normal visual inspection and full ROM Chest Chest palpation & inspection: normal inspection of the chest Resp Effort & Inspection: normal respiratory effort Auscultation: clear to auscultation bilaterally Cardio Rate: regular rate Rhythm: regular rhythm GI Inspection: non-distended Palpation: soft and nontender Skin General: no rashes or lesions noted Neuro General: patient alert and patient oriented x3 Extrem General: full ROM Psych Appearance: grossly normal Mental Status: mental status grossly normal Assessment and Plan Assessment and Plan (1) 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 Tico Luu MD: I discussed port placement with the patient in detail. I discussed right chest port placement utilizing right IJ. I discussed the risks of the procedure including but not limited to bleeding, infection, pneumothorax, DVT or line infection. The patient understands the risk. Due to scheduling I am unable to place this before the patient needs treatment and Dr. Anderson will place this port for him this Thursday. Patient is okay with this. Tico Luu MD Pager: [facility] [address] [place] [address], [address] [place] [address] Office: Coding Level of Care Code Off vis,new,level 3 Diagnoses 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 C64.9; C78.00 Encounter for insertion of venous access port Z45.2 04/30/21 1128<Electronically signed by Tico Luu MD>Date Tico Luu MD
[2021-05-03] MEDS: Lactated Ringers 1,000 ML 100 ML IV (11:15)
[2021-05-03] MEDS: Cefazolin 2 GM in 0.9% Normal Saline 100 ML IV (11:59)
[2021-05-03] MEDS: Lidocaine 1% /Epi 1:100 (20ml) 20 ML Vial (12:15)
[2021-05-03] MEDS: Bupivacaine Mpf 0.5% 30 ML VIAL (12:15)
--- NOTE | 2021-05-03 12:43 | OP.PCM_ITS ---
Report of Operation Date of Procedure: 05/03/21 Pre-Operative Diagnosis: Z 45.2, Right lung cancer Post-Operative Diagnosis: Same Surgery/Procedure Performed:: 1. Placement of right IJ Port-A-Cath 2. Use of ultrasound 3. 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 Appropriate time out protocol was followed. Patient was then given IV conscious sedation for anesthesia. The patient's right upper chest and neck were then prepped with a surgical skin preparation and sterile surgical drapes were placed. After proper landmarks were ascertained, the skin at the upper right chest area was then infiltrated with 1:1 mixture of 1% lidocaine with epinephrine and 0.5% marcaine. A needle trocar was then inserted into the right internal jugular vein with ultrasound guidance-multiple vessels were viewed with u/s and the right IJ was chosen-- and there was good aspiration of venous blood. A wire was then threaded into the needle trocar and this was visualized under fluoroscopy to ensure that the wire was in the superior vena cava. Once this was done, then the needle trocar was removed. A small skin josephine was made with an 11 blade knife at the wire entrance site. The dilator with the introducer sheath attached was then placed over the wire into the right internal jugular vein via the Seldinger technique and this was visualized under fluoroscopy. The dilator and sheath were in proper position as visualized by fluoroscopy. A subcutaneous pocket was then created caudad to the catheter insertion site. A transverse skin incision was made after the skin and subcutaneous tissues were infiltrated with local anesthetic. Blunt dissection was then used to create a space large enough for placement of the subcutaneous port. The catheter was then tunneled into the subcutaneous pocket. The wire and dilator were then removed. The catheter was then threaded into the introducer sheath and was positioned with its tip at the junction of the superior vena cava and the right atrium as visualized under fluoroscopy. The excess catheter was transected. The catheter was then attached to the subcutaneous port using manufacturers guidelines. The catheter was flushed with a heparin saline mixture prior to placement. Hemostasis was carefully controlled with electrocautery. The port was sutured to the subcutaneous fascia using 2-0 Vicryl suture at two sites. The port was then placed in the subcutaneous pocket. The incision were reapproximated with interrupted subdermal 3-0 vicryl sutures. The skin was reapproximated with 3-0 nylon suture in a interrupted fashion. Steristrips were used for reinforcement of the skin closure at IJ insertion site and a sterile opsite dressings were applied. The patient tolerated the procedure well. Implants Used: [employer] PowerPort isp M.R.I. 6Fr Lot [id number] Grafts/Implants Used: [employer] PowerPort isp M.R.I. 6Fr Lot [id number] Complications none
--- NOTE | 2021-05-03 12:47 | EX.PCM.DISCH ---
Discharge Instructions Procedure Port-A-Cath Diet Discharge Diet: Light diet - advance as tolerated Activity May shower in (days): 5 (Keep port site clean and dry x5 days. Neck incision okay to get wet after 1 day. Okay to lower shower and upper sponge bath. OR okay to taper off port site with a Ziploc bag to shower) Lifting Restrictions: No lifting > 15 pounds for 3 days with the arm on the side of the port Dressing / Incision Call your doctor if your incision/area has: Continuous Slow Oozing, Sudden Increased Bleeding, Increased Pain/ Swelling, Increased Redness, Foul Smelling Discharge and Swelling at the incision site Call your doctor if you observe: Fever of 101 or Higher Change Dressing in: 2 days Follow Up Care Please Follow Up With: Thi Anderson MD When: In 10 days for permanent suture removal?call office for appointment Test Results: Test results from this visit will be discussed in further detail at your follow-up appointment, if applicable. Discharge Plan Admission Attending Provider: Thi Anderson Primary Care Provider: Jacob Jennings Discharge Orders/Prescriptions Prescriptions: New hydrocodone-acetaminophen 5-325 mg tablet 1 tab PO Q6H PRN (Reason: pain) 2 Days Qty: 5 RF: 0 Continued enalapril maleate [Vasotec] 20 mg tablet 20 mg PO BID RF: 0 carvedilol 25 mg tablet 25 mg PO BID RF: 0 esomeprazole magnesium [Nexium] 20 mg capsule,delayed release(DR/EC) 20 mg PO PRN PRN (Reason: Indigestion) RF: 0 lidocaine-prilocaine 2.5-2.5 % cream 1 applic topical ONCE PRN (Reason: Port access ) 30 Days Qty: 30 RF: 2 ondansetron 4 mg tablet,disintegrating 4 mg PO Q8H PRN (Reason: nausea and vomiting) Qty: 30 RF: 1 aspirin 81 MG tablet 81 mg PO DAILY RF: 0 rosuvastatin [Crestor] 40 MG tablet 40 mg PO DAILY RF: 0 Referrals / Follow Up: Jacob Jennings DO [Primary Care Provider] - Disposition Disposition (needs filled in before D/C Order can be placed): Home, Self Care
--- NOTE | 2021-05-03 12:55 | RAD_ITS ---
STUDY: X-RAY CHEST REASON FOR EXAM: Male, 65 years old. port -- pacu TECHNIQUE: Single AP portable view of the chest. COMPARISON: 08/18/2018 FINDINGS: Interval placement of right internal jugular chest port with tip the catheter overlying the superior vena cava with no pneumothorax. The lungs are clear and expanded. Tiny right pleural effusion. Normal size heart. Normal mediastinum and emelia. Normal visualized pulmonary arteries. Normal visualized aortic arch and descending thoracic aorta. Normal visualized thoracic spine. Normal visualized ribs, clavicles, and shoulders. There is no demonstrated abnormality of the visualized soft tissue structures of the upper abdomen. RAD/CXR for Line Placement IMPRESSION: Interval placement of right internal jugular chest port with tip the catheter overlying the spur vena cava and no pneumothorax. Electronically Signed: Joe Sanchez MD at 13:11 EDT Tel , Service support ,
== END 2021-05-03 13:54 | disposition home or self-care (01) ==
LOC: SDC 10:31 → AC 10:32
PROVIDERS: PCP Family Medicine; Referring Provider Surgery; Visit Provider Surgery
PROC: (CPT 36561; principal; 2021-05-03 12:45)
DX: Z45.2 Encounter for adjustment and management of vascular access device (principal); C64.9 Malignant neoplasm of unspecified kidney, except renal pelvis; C78.01 Secondary malignant neoplasm of right lung; I25.10 Atherosclerotic heart disease of native coronary artery without angina pectoris; J44.9 Chronic obstructive pulmonary disease, unspecified; I10 Essential (primary) hypertension; E78.00 Pure hypercholesterolemia, unspecified; K21.9 Gastro-esophageal reflux disease without esophagitis; Z79.82 Long term (current) use of aspirin; Z79.899 Other long term (current) drug therapy; Z85.528 Personal history of other malignant neoplasm of kidney; Z87.891 Personal history of nicotine dependence; Z90.5 Acquired absence of kidney; Z90.2 Acquired absence of lung [part of]
CPT/HCPCS: 00532; 36561; 71045; 77001; J7120

== ENCOUNTER → 2021-05-14 11:32 | Outpatient (CLI) | payer MEDICARE, OTHER, SELFPAY ==
[2021-05-14 09:39] VITALS: BMI 31.8
--- NOTE | 2021-05-14 10:42 | CT_ITS ---
STUDY: CTA CHEST REASON FOR EXAM: Male, 65 years old. H/o lung ca and metastatic renal cell carcinoma with new onset dyspnea RADIATION DOSAGE (If Supplied By Facility): CTDIvol = ( 10.36 ) mGy, DLP = ( 481.80 ) mGycm TECHNIQUE: The examination was performed with the intravenous administration of IV 70mL Isovue-370. Post-processing of the angiographic images was performed, with multiplanar reformation and 3D reconstruction. Individualized dose optimization techniques were used for this CT. COMPARISON: None. FINDINGS: Normal enhancement of the main pulmonary artery and right and left pulmonary arteries. Normal enhancement of the bilateral peripheral pulmonary arteries. There is no demonstrated pulmonary embolism. There is atherosclerotic calcification of the aortic arch with tortuosity. There is no demonstrated aortic dissection. There are calcifications of the coronary arteries. There are visualized mediastinal lymph nodes, which are within normal size limits, and with normal morphology. Normal hilar regions. Normal visualized trachea and bronchi. The lungs are well expanded. Emphysematous changes involving both lungs. Small right pleural effusion with right basilar atelectasis. Fibrocalcific scarring in the lateral aspect of the right upper lobe with some volume loss. There is an 8.8 mm noncalcified nodule in the posterior medial aspect of the right upper lobe as seen on axial image #166 and coronal image #164. Normal chest wall structures. There are degenerative changes of thoracic spine. Nondisplaced fracture of the right sixth rib anterolaterally. Minimal underlying pleural thickening. There is a 2.7 cm x 4.5 cm mass in the right adrenal gland. CT/CTA Chest W/WO Contrast IMPRESSION: Right pleural effusion with right basilar atelectasis. Fibrocalcific scarring in the right upper lobe. Nondisplaced right sixth rib fracture anterolaterally. Electronically Signed: Musa Crooks MD at 12:09 EDT , Service support ,
== END ==
PROVIDERS: PCP Family Medicine; Referring Provider Nurse Practitioner Family; Visit Provider Nurse Practitioner Family
DX: R09.89 Other specified symptoms and signs involving the circulatory and respiratory systems (principal); R06.00 Dyspnea, unspecified; C34.31 Malignant neoplasm of lower lobe, right bronchus or lung; C64.1 Malignant neoplasm of right kidney, except renal pelvis; C79.71 Secondary malignant neoplasm of right adrenal gland
CPT/HCPCS: 36591; 71275; 80053; 85025; A4216

== ENCOUNTER 2021-06-13 13:58 | Inpatient (IN) | payer MEDICARE, OTHER, SELFPAY ==
[2021-06-11 10:23] VITALS: BMI 31.8
[2021-06-13] VITALS (13 sets, daily range): BP systolic 84–125; BP diastolic 46–77; PULSE 71–95; RESP 16–32; TEMP 37.3–38.6; O2SAT 88–95; BMI 31.6; BMI 31.8
--- NOTE | 2021-06-13 14:21 | EX.ED.DYSGE1 ---
HPI History of Present Illness Chief Complaint: Fever Detail of Chief Complaint: Fever that started 2 days ago Informant: patient Narrative Narrative: Patient presents to the emergency department with complaint of fever and chills that started 2 days ago. Patient states that he has had slight cough that is nonproductive. He has had some abdominal discomfort that she is kind of diffuse. Has had some nausea but no vomiting. Has had mild amount of loose stool. Patient states his urine seems yellow and will not clear up with drinking water. Patient currently being treated for renal cell carcinoma with immunotherapy and his last treatment was about 2 weeks ago. Temperature at home has been up to 102. He denies dysuria. Patient denies sick contacts. Patient has been immunized against Covid. Prior similar symptoms: No PFSH PFSH Medical History Abnormal colonoscopy Adenocarcinoma of right lung Alcohol use Atherosclerotic heart disease of [place] coronary artery without angina pectoris Cardiology follow-up encounter COPD (chronic obstructive pulmonary disease) DDD (degenerative disc disease) Dyspnea Easy bruising Elevated troponin (05/15/21) Encephalopathy (05/15/21) Essential (primary) hypertension Former smoker Gastric reflux History of primary malignant neoplasm of left kidney Hyperlipidemia 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 Nonrheumatic aortic (valve) stenosis with insufficiency Port-A-Cath in place Seizure (05/15/21) Skin cancer Wears dentures Wears glasses Home Medications aspirin 81 mg PO DAILY 08/18/18 [History Last Taken 08/18/18] rosuvastatin [Crestor] 40 mg PO DAILY 08/18/18 [History Last Taken 08/18/18] carvedilol 25 mg tablet 25 mg PO BID 04/30/21 [History Last Taken 05/03/21 06:00] enalapril maleate 20 mg tablet 20 mg PO BID 04/30/21 [History Last Taken 05/03/21 06:00] esomeprazole magnesium 20 mg capsule,delayed release 20 mg PO PRN PRN 04/30/21 [History Last Taken Unknown] lidocaine-prilocaine 2.5 %-2.5 % topical cream 1 applic TOPICAL ONCE PRN 30 Days #30 g 04/30/21 [Rx Last Taken Unknown] ondansetron 4 mg disintegrating tablet 4 mg PO Q8H PRN #30 tab 04/30/21 [Rx Last Taken Unknown] hydrocodone-acetaminophen 1 tab PO Q6H PRN 2 Days #5 tab 05/03/21 [Rx Last Taken Unknown] levetiracetam 1,000 mg tablet 1,000 mg PO BID 05/20/21 [History Last Taken Unknown] albuterol sulfate 90 mcg/actuation aerosol inhaler 1 puff INHALATION Q6H PRN g 05/31/21 [History Last Taken Unknown] amlodipine 10 mg tablet 10 mg PO DAILY #90 tab 05/31/21 [Rx Last Taken Unknown] hydralazine 50 mg tablet 50 mg PO BID tab 05/31/21 [History Last Taken Unknown] Allergy/AdvReac Type Severity Reaction Status Date / Time No Known Allergies Allergy Verified 06/13/21 14:07 Family History Sister Diabetes CAD (coronary artery disease) Mother CVA (cerebral vascular accident) CAD (coronary artery disease) Lung cancer Father CAD (coronary artery disease) Brother CAD (coronary artery disease) Surgical History History of coronary angioplasty (01/05/04) History of coronary artery stent placement (07/17/03) History of lobectomy of lung History of nephrectomy, left Social History Smoking Status: Former smoker Tobacco: How many years used: 40 second hand exposure: No alcohol intake: current details: 14 cans per week 4 or more times a week substance use type: does not use seatbelt use: always do you feel safe at home: Yes ROS ROS ED Constitutional Constitutional ED: Reports systems reviewed and no addt'l complaints, except as documented; Denies body ache(s), change in weight or chills Eyes Eyes: Denies acute decrease in peripheral vision, change in vision, double vision or loss of vision ENT ENT ED: Reports none; Denies ear pain, lip swelling, loss taste/smell, neck pain, otalgia or sore throat Cardiovascular Cardiovascular: Reports none; Denies abdominal pain, chest pain with activity, leg edema, lightheadedness, palpitations, rapid heart rate or syncope Respiratory/Chest Respiratory/Chest: Reports none and cough; Denies change in mental status, dry cough, dyspnea, hemoptysis, shortness of breath at rest or shortness of breath with exertion Gastrointestinal Gastrointestinal: Reports none, abdominal pain and nausea; Denies change in stool character, diarrhea, hematemesis, hematochezia, melena, rectal bleeding or vomiting Genitourinary Genitourinary ED: Reports none; Denies abdominal discomfort, anuria, dysuria, genital pain or polyuria Musculoskeletal Musculoskeletal: Reports none; Denies arthralgias, back pain, difficulty walking, extremity pain, muscle weakness or myalgias Integumentary Reports none; Denies abscess or rash Neurologic Neurologic: Reports none; Denies abnormal gait, confusion, focal weakness, frequent falls, headache(s), loss of vision, numbness, paresthesias, radicular pain, vertigo or weakness Psychiatric Psychiatric: Reports systems reviewed and no addt'l complaints, except as documented and none; Denies behavioral changes, confusion, difficulty concentrating, hallucinations, suicidal ideation, tactile hallucinations or visual hallucinations Endocrine Endocrinology: Denies none, cold intolerance, excessive sweating, fatigue or heat intolerance Hematologic/Lymphatic Hematologic/Lymphatic: Reports none; Denies anemia, easy bleeding or easy bruising Allergic/Immunologic Allergic/Immunologic ED: Denies as per HPI, none, lip swelling, mouth swelling, throat swelling, tongue swelling or hives EXAM Physical Exam Const Vital Signs: 06/13/21 13:59 06/13/21 14:02 06/13/21 14:07 Temperature 101.3 F H 101.3 F H Temperature Source Temporal Temporal Pulse Rate 95 95 Respiratory Rate 32 H 32 H Respiratory Effort Short of Breath Respiratory Pattern Normal Blood Pressure 125/57 H 125/57 H Blood Pressure Mean 79 79 Pulse Ox 95 95 Oxygen Delivery Method Nasal Cannula Nasal Cannula Oxygen Flow Rate (L/min) 06/13/21 15:06 06/13/21 15:57 06/13/21 15:58 Temperature 101.5 F H Temperature Source Temporal Pulse Rate 89 81 Respiratory Rate 25 H 20 H Respiratory Effort Respiratory Pattern Blood Pressure 102/46 L Blood Pressure Mean 64 Pulse Ox 90 88 95 Oxygen Delivery Method Room Air Room Air Nasal Cannula Oxygen Flow Rate (L/min) 2 Positive well nourished and well developed General Appearance ED: well developed and NAD HEENT Reports TM's clear and moist mucous membranes normocephalic and atraumatic; Negative for trauma or tenderness Tympanic Membrane ED: Yes TM's clear Eyes PERRL and EOMs intact bilaterally General Eye ED: Negative for pale conjunctiva or scleral icterus Neck no lymphadenopathy, supple and no JVD General: Negative for tenderness Chest Wall inspection of chest normal and palpation of chest normal Chest: Negative for tenderness Resp normal respiratory effort and clear to auscultation bilaterally Effort and Inspection: Negative for respiratory distress or pain with movement Auscultation: Negative for rhonchi, wheezes or diminished lung sounds Cardio regular rate, regular rhythm, S1 normal heart sound, S2 normal heart sound and no murmurs Peripheral Pulses: pulses 2+ throughout GI normal to inspection, nondistended, normoactive bowel sounds, soft to palpation, non-distended and no masses GI Narrative: Mild abdominal discomfort in the right upper quadrant and epigastric region. Negative Gloria sign. No rebound, rigidity, or peritoneal signs. Palpation: soft Back/Spine no CVA tenderness and no thoracic nor lumbar tenderness Extremity normal to inspection General Extremety ED: Negative for edema General Extremity: Negative for edema Neuro oriented x3, CN's II-XII intact bilaterally, no sensory deficits noted and gait normal Sensorium / Orientation: awake, alert, oriented to person, oriented to place and oriented to time Motor Exam: strength 5/5 throughout and strength abnormal Psych mental status grossly normal Skin no rashes or lesions noted and no wounds MDM MDM MDM Narrative Medical decision making narrative: At this point patient has fever of unidentified origin. Urinalysis still pending. Patient was started empirically on Zosyn. His blood pressure did start to drop to the 90s systolic and was ordered fluid boluses to make 30 cc/kg. Patient also dropped his O2 sat into the 88% on room air range so he had 2 L of nasal cannula O2 placed. Case discussed with hospitalist will evaluate patient for admission. Lab Data Attestation: I reviewed the patient's lab results. Labs: Laboratory Results - last 24 hr 06/13/21 06/13/21 06/13/21 14:35 14:35 14:35 WBC 3.1 L RBC 4.17 L Hgb 11.0 L Hct 33.4 L MCV 80.1 MCH 26.4 L MCHC 32.9 RDW Std Deviation 41.3 RDW Coeff of [place] 14.1 Plt Count 87 L MPV 9.9 Immature Gran % (Auto) 0.600 Neut % (Auto) 76.2 H Lymph % (Auto) 7.4 L [place] % (Auto) 13.2 H Eos % (Auto) 2.3 Baso % (Auto) 0.3 Absolute Neuts (auto) 2.4 Absolute Lymphs (auto) 0.23 L Nucleated RBC % 0 Diff Path Review May foll Platelet Estimate MOD DEC Sodium 131 L Potassium 3.7 Chloride 97 L Carbon Dioxide 23.0 Anion Gap 11 BUN 35 H Creatinine 1.66 H Estim Creat Clear Calc 37.56 Est GFR (MDRD) Af Amer 53 L Est GFR (MDRD) Non-Af 44 L BUN/Creatinine Ratio 21.1 H Glucose 134 H Lactic Acid 1.4 Calcium 8.5 Total Bilirubin 0.70 AST 37 ALT 44 Alkaline Phosphatase 61 Total Protein 6.7 Albumin 3.3 Globulin 3.4 Albumin/Globulin Ratio 1.0 Lipase 56 L Radiography Chest X-Ray - ED: 1 View Diagnostic Testing: Radiology Impression Chest X-Ray 06/13/21 15:12 IMPRESSION: No acute pathology Electronically Signed: Stanton Meyers DO at 15:36 EDT Tel , Service support , Abdomen/Pelvis CT 06/13/21 15:33 IMPRESSION: 1. Reidentification of large lobular mass of the right adrenal gland measuring at least 4 cm, suspicious for metastatic disease. Without contrast this is poorly evaluated but on the prior study with contrast a heterogeneous mass was visualized. 2. Reidentification of a rounded partially exophytic mass in the medial aspect of the midpole of the right kidney measuring at least 2.56 cm also demonstrated enhancement on the prior study which is suspicious for malignancy. Electronically Signed: Cedrick Perez MD at 16:36 EDT , Service support , 1 view chest x-ray obtained showed no acute disease process on my trepidation. Radiology in agreement. EKG Initial EKG: Attestation: I personally reviewed and interpreted this EKG as follows: Comments: Sinus rhythm with a ventricular rate of 80 bpm with no acute ST segment changes Discharge Plan Triage Chief Complaint: Fever ED Provider: Ungur,Remus Dx/Rx/DC Orders Clinical Impression: Fever of unknown origin (FUO), Acute hypotension, Hypoxia Prescriptions: No Action enalapril maleate [Vasotec] 20 mg tablet 20 mg PO BID RF: 0 carvedilol 25 mg tablet 25 mg PO BID RF: 0 esomeprazole magnesium [Nexium] 20 mg capsule,delayed release(DR/EC) 20 mg PO PRN PRN (Reason: Indigestion) RF: 0 lidocaine-prilocaine 2.5-2.5 % cream 1 applic topical ONCE PRN (Reason: Port access ) 30 Days Qty: 30 RF: 2 ondansetron 4 mg tablet,disintegrating 4 mg PO Q8H PRN (Reason: nausea and vomiting) Qty: 30 RF: 1 albuterol sulfate 90 mcg/actuation HFA aerosol inhaler 1 puff inhalation Q6H PRNRF: 0 amlodipine 10 mg tablet 10 mg PO DAILY Qty: 90 RF: 4 aspirin 81 MG tablet 81 mg PO DAILY RF: 0 rosuvastatin [Crestor] 40 MG tablet 40 mg PO DAILY RF: 0 hydrocodone-acetaminophen 5-325 mg tablet 1 tab PO Q6H PRN (Reason: pain) 2 Days Qty: 5 RF: 0 levetiracetam [Keppra] 1,000 mg tablet 1,000 mg PO BID RF: 0 hydralazine 50 mg tablet 50 mg PO BID RF: 0 Primary Care Provider: Jacob Jennings Referrals: Jacob Jennings DO [Primary Care Provider] - Disposition Disposition: Acute Care Hospital [facility]
[2021-06-13 14:56] LABS: Absolute Lymphocyte Count 0.23 X10^3/uL (0.83-4.51); Absolute Neutrophil Count 2.4 X10^3/uL (2.0-7.7); Basophil# 0.01 X10^3/uL; Basophil% 0.3 % (0-1); Eosinophil# 0.07 X10^3/uL; Eosinophils% 2.3 % (0-5); Hematocrit 33.4 % (40-54); Lymphocyte # 0.23 X10^3/ul (0.83-4.51); Lymphocyte % 7.4 % (19-41); Mean Corp Hgb Conc 32.9 g/dL (32-36); Mean Corpuscular Hgb 26.4 pg (27.0-32.0); Mean Corpuscular Volume 80.1 fL (80-94); Mean Platelet Vol. 9.9 fl (6.2-12.0); Monocyte# 0.41 X10^3/uL; Monocyte% 13.2 % (0-10); NRBC Flagged by Analyzer 0 % (0-5); Neutrophil # 2.37 X10^3/uL (2.7-7.7); Neutrophil % 76.2 % (47-70); POSITIVE COUNT YES; POSITIVE DIFFERENTIAL YES; Platelet Count 87 K/mm3 (150-450); RBC Distribution Width CV 14.1 % (11.6-14.6); RBC Distribution Width SD 41.3 fl (35.1-43.9); Red Blood Count 4.17 M/mm3 (4.6-6.2); White Blood Count 3.1 K/mm3 (4.4-11.0)
[2021-06-13 14:58] LABS: Differential Indicated SCAN CRITERIA MET
[2021-06-13] MEDS: 0.9% Normal Saline 1,000 ML 150 ML IV (15:08)
--- NOTE | 2021-06-13 15:12 | RAD_ITS ---
EXAM DESCRIPTION: PORTABLE AP CHEST CLINICAL HISTORY: 65 years Male, fever fever COMPARISON: Previous portable chest obtained on 05/03/2021 FINDINGS: A right MediPort catheter is noted in place. The rest of the thorax is intact. The heart and mediastinum appear to be within normal limits. The lungs appear to be well areated without evidence of pneumonic consolidation or pleural effusion. RAD/Chest 1 View (Portable) IMPRESSION: No acute pathology Electronically Signed: Stanton Meyers DO at 15:36 EDT Tel , Service support ,
[2021-06-13 15:13] LABS: AST(SGOT) 37 U/L (15-37); Alanine Aminotransfer ALT/SGPT 44 U/L (16-61); Albumin, Serum 3.3 g/dL (3.2-5.0); Alkaline Phosphatase 61 U/L (45-117); Anion Gap 11 (5-15); BUN 35 mg/dL (7-18); BUN/Creat Ratio 21.1 RATIO (10-20); Calcium,Total 8.5 mg/dL (8.5-10.1); Chloride 97 mmol/L (98-107); Creatinine, Serum 1.66 mg/dL (0.70-1.30); EST Glomerular Filtration Rate 44 mL/min (>60); Est Glom Filt Rate - Afr Amer 53 mL/min (>60); Estimated Creatinine Clearance 37.56 ml/min; Globulin 3.4 g/dL (2.2-4.2); Glucose 134 mg/dL (74-106); Lipase 56 U/L (73-393); Potassium 3.7 mmol/L (3.5-5.1); Protein, Total 6.7 g/dL (6.4-8.2); Sodium Level 131 mmol/L (136-145)
[2021-06-13 15:19] LABS: Platelet Estimate MOD DEC (ADEQ)
[2021-06-13 15:20] LABS: Lactic Acid 1.4 mmol/L (0.4-1.9)
--- NOTE | 2021-06-13 15:33 | CT_ITS ---
STUDY: CT ABDOMEN AND PELVIS WITHOUT CONTRAST REASON FOR EXAM: Male, 65 years old.FEVER, CHILLS, ABD PAIN, NAUSEA, CURRENTLY TREATED FOR RENAL CELL CA-IMMUNOTHERAPY abdominal pain Previous CT of abdomen and pelvis dated MAY 02, 2021 shows an enhancing heterogeneous masses of the right kidney and right adrenal gland suspicious for metastatic disease RADIATION DOSAGE (If Supplied By Facility): CTDIvol = ( 16.16 ) mGy, DLP = ( 658.74 ) mGycm TECHNIQUE: Transaxial images were obtained from the dome of the diaphragm to the symphysis pubis without oral contrast, and without intravenous contrast. Sagittal and coronal images were reconstructed. Individualized dose optimization techniques were used for this CT. COMPARISON: CT of abdomen and pelvis dated MAY 02, 2021 FINDINGS: Chronic small loculated right pleural effusion is slightly smaller than what was seen on the prior study. Mild interstitial scarring of the right lower lobe unchanged. Mild pleural thickening in the posterior aspect of the left lower lobe unchanged. Linear scarring in the lingula of the left upper lobe unchanged. The liver is unremarkable. Single tiny cyst seen in the central and inferior aspect reidentified. No suspicious lesions are seen. The gallbladder is contracted. No change in moderate splenomegaly maximum measuring 15.83 cm. Normal pancreas. Normal left adrenal gland. Reidentification of large lobular mass of the right adrenal gland measuring at least 4 cm, suspicious for metastatic disease. Without contrast this is poorly evaluated but on the prior study with contrast a heterogeneous mass was visualized. Reidentification of a rounded partially exophytic mass in the medial aspect of the midpole of the right kidney measuring at least 2.56 cm also demonstrated enhancement on the prior study which is suspicious for malignancy. A few parenchymal calcifications and cortical cysts of the right kidney are stable. No additional imaging is needed. Prior left nephrectomy without recurrent or suspicious process. Normal visualized stomach. Normal small intestine. Normal colon. The appendix is visualized and appears normal. There is diffuse atherosclerotic calcification of the abdominal aorta, without a demonstrated aneurysm. Normal inferior vena cava. There is borderline retroperitoneal lymphadenopathy with enlarged nodes no greater than 10mm in the short axis diameter. Normal urinary bladder. There are prostatic calcifications. Moderate to large size left lateral upper abdominal wall hernia containing intra-abdominal mesenteric fat and bowel loops unchanged from the prior study. No demonstrated incarceration of the bowel loops within the hernia sac. Stable bilateral fat-containing inguinal hernias. There are diffuse degenerative changes of the visualized lumbar spine. CT/Abdomen/Pelvis without Cont IMPRESSION: 1. Reidentification of large lobular mass of the right adrenal gland measuring at least 4 cm, suspicious for metastatic disease. Without contrast this is poorly evaluated but on the prior study with contrast a heterogeneous mass was visualized. 2. Reidentification of a rounded partially exophytic mass in the medial aspect of the midpole of the right kidney measuring at least 2.56 cm also demonstrated enhancement on the prior study which is suspicious for malignancy. Electronically Signed: Cedrick Perez MD at 16:36 EDT , Service support ,
--- NOTE | 2021-06-13 15:57 | EKG12_ITS ---
Test Reason : FEVER Blood Pressure : / mmHG Vent. Rate : 080 BPM Atrial Rate : 080 BPM P-R Int : 174 ms QRS Dur : 086 ms QT Int : 384 ms P-R-T Axes : 049 018 065 degrees QTc Int : 442 ms Normal sinus rhythm Normal ECG Confirmed by RUDDY BAUTISTA, RACHAEL ([id number]), photographic editor MATHEW VORA ([id number]) on 06/17/2021 9:58:58 AM Referred By: HUE Confirmed By:RACHAEL FOX MD
[2021-06-13 16:49] LABS: Bacteria 0 SEEN /hpf (None Seen); Mucous, Urine 0 SEEN /hpf (<or=2+); Red Blood Cells-Urine 0 SEEN /hpf (0-5); Squamous Epithelial Cells - UA 0 SEEN /hpf (0-5)
[2021-06-13 16:53] LABS: Color, Urine Yellow (Yellow); Glucose, Dipstick Normal (Normal); Ketone-Dipstick Negative (Negative); Leukocyte Esterase-Dipstick 100 /ul (Negative); Nitrite-Dipstick Negative (Negative); Occult Blood-Urine Negative /ul (Negative); Protein-Dipstick 15 mg/dl (Negative); Specific Gravity, Urine 1.015 (1.002-1.030); Urine Bilirubin Dipstick Negative (Negative); Urine Clarity Clear (Clear); Urine Urobilinogen Normal (Normal)
[2021-06-13] MEDS: 0.9% Normal Saline 1,000 ML 999 ML IV (16:58)
--- NOTE | 2021-06-13 17:14 | PCM.HP.STD ---
Documented by User: JOSIE Beebe 06/13/21 17:33 HPI - General General Date of Admission: 06/13/21 Date of Service: 06/13/21 Chief Complaint: Fever of unknown origin, weakness HPI Narrative KENN IRAHETA, is a 65 M who presents with complaints of fever and chills. Patient reports that this started 2 days ago along with a nonproductive cough. Patient states that he has some abdominal discomfort with some nausea but no vomiting. Patient also reports that his urine has been darker in the past couple days and has not improved with increased water intake. Patient has received Covid vaccine. Patient states that he is last treatment was approximately 2 weeks ago for renal cell carcinoma for which she sees Dr. Vieira. Patient denies any difficulty urinating or pain with urination. [facility] Medical History Abnormal colonoscopy Adenocarcinoma of right lung Alcohol use Atherosclerotic heart disease of [place] coronary artery without angina pectoris Cardiology follow-up encounter COPD (chronic obstructive pulmonary disease) DDD (degenerative disc disease) Dyspnea Easy bruising Elevated troponin (05/15/21) Encephalopathy (05/15/21) Essential (primary) hypertension Former smoker Gastric reflux History of primary malignant neoplasm of left kidney Hyperlipidemia 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 Nonrheumatic aortic (valve) stenosis with insufficiency Port-A-Cath in place Seizure (05/15/21) Skin cancer Wears dentures Wears glasses Home Medications aspirin 81 mg PO DAILY 08/18/18 [History Last Taken 06/13/21] rosuvastatin [Crestor] 40 mg PO DAILY 08/18/18 [History Last Taken 06/12/21] carvedilol 25 mg tablet 25 mg PO BID 04/30/21 [History Last Taken 06/13/21] enalapril maleate 20 mg tablet 20 mg PO BID 04/30/21 [History Last Taken 06/13/21] esomeprazole magnesium 20 mg capsule,delayed release 20 mg PO PRN PRN 04/30/21 [History Last Taken Unknown] lidocaine-prilocaine 2.5 %-2.5 % topical cream 1 applic TOPICAL ONCE PRN 30 Days #30 g 04/30/21 [Rx Last Taken Unknown] levetiracetam 1,000 mg tablet 1,000 mg PO BID 05/20/21 [History Last Taken 06/13/21] albuterol sulfate 90 mcg/actuation aerosol inhaler 1 puff INHALATION Q6H PRN g 05/31/21 [History Last Taken 06/12/21] amlodipine 10 mg tablet 10 mg PO DAILY #90 tab 05/31/21 [Rx Last Taken Unknown] hydralazine 50 mg tablet 50 mg PO BID tab 05/31/21 [History Last Taken 06/13/21] cilostazol 50 mg PO BID 06/13/21 [History Last Taken Unknown] Allergy/AdvReac Type Severity Reaction Status Date / Time No Known Allergies Allergy Verified 06/13/21 14:07 Family History Sister Diabetes CAD (coronary artery disease) Mother CVA (cerebral vascular accident) CAD (coronary artery disease) Lung cancer Father CAD (coronary artery disease) Brother CAD (coronary artery disease) Surgical History History of coronary angioplasty (01/05/04) History of coronary artery stent placement (07/17/03) History of lobectomy of lung History of nephrectomy, left Social History (Updated 06/13/21 @ 17:18 by Germania Reece NP-C) Smoking Status: Former smoker Tobacco: How many years used: 40 second hand exposure: No alcohol intake: current alcohol intake frequency: a few times a month Alcohol type: beer substance use type: does not use seatbelt use: always do you feel safe at home: Yes ROS Constitutional Constitutional: Reports chills, fatigue, fever(s) and weakness; Denies anorexia Cardiovascular Cardiovascular: Denies chest pain, edema or palpitations Respiratory/Chest Respiratory/Chest: Reports cough, shortness of breath with exertion and tachypnea; Denies shortness of breath at rest Gastrointestinal Gastrointestinal: Reports abdominal pain, diarrhea and nausea; Denies constipation or vomiting Genitourinary Genitourinary: Denies dysuria Musculoskeletal Musculoskeletal: Denies back pain, extremity pain, joint pain or joint stiffness Integumentary Integumentary: Denies dry skin Neurologic Neurologic: Denies abnormal gait, abnormal speech, confusion, dizziness or focal weakness Psychiatric Psychiatric: Denies anxiety or depression Endocrine Endocrinology: Denies change in body appearance Hematologic/Lymphatic Hematologic/Lymphatic: Denies easy bleeding or easy bruising Vital Signs Vital Signs Vital Signs: 06/13/21 13:59 06/13/21 14:02 06/13/21 14:07 Temperature 101.3 F H 101.3 F H Temperature Source Temporal Temporal Pulse Rate 95 95 Respiratory Rate 32 H 32 H Respiratory Effort Short of Breath Respiratory Pattern Normal Blood Pressure 125/57 H 125/57 H Blood Pressure Mean 79 79 Pulse Ox 95 95 Oxygen Delivery Method Nasal Cannula Nasal Cannula Oxygen Flow Rate (L/min) 06/13/21 15:06 06/13/21 15:57 06/13/21 15:58 Temperature 101.5 F H Temperature Source Temporal Pulse Rate 89 81 Respiratory Rate 25 H 20 H Respiratory Effort Respiratory Pattern Blood Pressure 102/46 L Blood Pressure Mean 64 Pulse Ox 90 88 95 Oxygen Delivery Method Room Air Room Air Nasal Cannula Oxygen Flow Rate (L/min) 2 Weight Weight: 190 lb Body Mass Index (BMI) 31.6 Physical Exam Const alert and oriented x3 General Appearance: cooperative HEENT normocephalic and head/scalp atraumatic Eyes conjunctivae normal and no scleral icterus Neck supple and no JVD General: trachea midline Resp normal respiratory effort and normal air movement Effort and Inspection: tachypneic Auscultation: diminished lung sounds Cardio regular rate, regular rhythm, S1 normal heart sound and S2 normal heart sound GI normal to inspection, nondistended, normoactive bowel sounds, soft to palpation and non-tender Extremity normal capillary refill and no clubbing, cyanosis or edema General Extremity: no tenderness to palpation of joints or extremities Skin General Skin Exam: no breakdown and turgor normal Lesions: no lesions Rashes: no rashes Neuro no focal motor deficits, no sensory deficits noted and deep tendon reflexes 2+ bilaterally Speech: speech normal Motor Exam: general weakness Psych thought process normal, cooperative and affect normal Appearance: appropriate Results Lab / Micro Data Result Diagrams: 06/13/21 14:35 06/13/21 14:35 Labs: Laboratory Results - last 24 hr 06/13/21 14:35: WBC 3.1 L, RBC 4.17 L, Hgb 11.0 L, Hct 33.4 L, MCV 80.1, MCH 26.4 L, MCHC 32.9, RDW Std Deviation 41.3, RDW Coeff of [place] 14.1, Plt Count 87 L, MPV 9.9, Immature Gran % (Auto) 0.600, Neut % (Auto) 76.2 H, Lymph % (Auto) 7.4 L, [place] % (Auto) 13.2 H, Eos % (Auto) 2.3, Baso % (Auto) 0.3, Absolute Neuts (auto) 2.4, Absolute Lymphs (auto) 0.23 L, Nucleated RBC % 0, Diff Path Review March, Platelet Estimate MOD 06/13/21 14:35: Sodium 131 L, Potassium 3.7, Chloride 97 L, Carbon Dioxide 23.0, Anion Gap 11, BUN 35 H, Creatinine 1.66 H, Estim Creat Clear Calc 37.56, Est GFR (MDRD) Af Amer 53 L, Est GFR (MDRD) Non-Af 44 L, BUN/Creatinine Ratio 21.1 H, Glucose 134 H, Calcium 8.5, Total Bilirubin 0.70, AST 37, ALT 44, Alkaline Phosphatase 61, Total Protein 6.7, Albumin 3.3, Globulin 3.4, Albumin/Globulin Ratio 1.0, Lipase 56 L 06/13/21 14:35: Lactic Acid 1.4 06/13/21 16:45: Urine Color Yellow, Urine Clarity Clear, Urine pH 5.0, Ur Specific [place] 1.015, Urine Protein 15 H, Urine Glucose (UA) Normal, Urine Ketones Negative, Urine Occult Blood Negative, Urine Nitrite Negative, Urine Bilirubin Negative, Urine Urobilinogen Normal, Ur Leukocyte Esterase 100 H Micro: Microbiology 06/13/21 14:20 Mucosa - Nose SARS-CoV-2 Antigen (Rapid) - Final Radiology Impression Chest X-Ray 06/13/21 15:12 IMPRESSION: No acute pathology Electronically Signed: Stanton Meyers DO at 15:36 EDT Tel , Service support , Abdomen/Pelvis CT 06/13/21 15:33 IMPRESSION: 1. Reidentification of large lobular mass of the right adrenal gland measuring at least 4 cm, suspicious for metastatic disease. Without contrast this is poorly evaluated but on the prior study with contrast a heterogeneous mass was visualized. 2. Reidentification of a rounded partially exophytic mass in the medial aspect of the midpole of the right kidney measuring at least 2.56 cm also demonstrated enhancement on the prior study which is suspicious for malignancy. Electronically Signed: Cedrick Perez MD at 16:36 EDT , Service support , Assessment & Plan Assessment/Plan (1) Fever of unknown origin (FUO): (2) Acute hypotension: (3) Hypoxia: PLAN: 1. Fever of unknown origin -Admit to PCU for cardiac monitoring -Chest x-ray negative for acute findings, abdomen and pelvis CT which is consistent with previous study which shows metastatic disease of the right kidney and right adrenal gland -Patient receives immunotherapy for renal cell carcinoma and follows with Dr. Vieira, last treatment 2 weeks ago -Urinalysis pending -Will obtain CBC and BMP daily -PT and OT to eval and treat -Strict intake and outputs -Daily weights - 2. Acute hypotension -Likely secondary to #1 -Will hold all antihypertensives at this time -Vital signs per protocol, trend BP 3. Hypoxia -Likely secondary to #1 -O2 per protocol -As needed albuterol nebulizer treatments ordered 4. Hypertension -Vital signs per protocol, trend BP -Will hold all antihypertensives at this time due to hypotension upon presentation 5. Hyperlipidemia -Continue rosuvastatin 6. Metastatic renal cell carcinoma -Follows with Dr. Vieira, last immunotherapy treatment 2 weeks ago which 7. History of coronary artery stent placement -Placed 07/17/2003 and 01/05/2004 -Continue Pletal DVT prophylaxis-subcu Lovenox This patient was seen by Germania Reece NP-C under the supervision of Dr. Anderson. Documented by User: Dr. Antoni Anderson, 06/13/21 18:13 HPI - General General Date of Admission: 06/13/21 [facility] Medical History Abnormal colonoscopy Adenocarcinoma of right lung Alcohol use Atherosclerotic heart disease of [place] coronary artery without angina pectoris Cardiology follow-up encounter COPD (chronic obstructive pulmonary disease) DDD (degenerative disc disease) Dyspnea Easy bruising Elevated troponin (05/15/21) Encephalopathy (05/15/21) Essential (primary) hypertension Former smoker Gastric reflux History of primary malignant neoplasm of left kidney Hyperlipidemia 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 Nonrheumatic aortic (valve) stenosis with insufficiency Port-A-Cath in place Seizure (05/15/21) Skin cancer Wears dentures Wears glasses Home Medications aspirin 81 mg PO DAILY 08/18/18 [History Last Taken 06/13/21] rosuvastatin [Crestor] 40 mg PO DAILY 08/18/18 [History Last Taken 06/12/21] carvedilol 25 mg tablet 25 mg PO BID 04/30/21 [History Last Taken 06/13/21] enalapril maleate 20 mg tablet 20 mg PO BID 04/30/21 [History Last Taken 06/13/21] esomeprazole magnesium 20 mg capsule,delayed release 20 mg PO PRN PRN 04/30/21 [History Last Taken Unknown] lidocaine-prilocaine 2.5 %-2.5 % topical cream 1 applic TOPICAL ONCE PRN 30 Days #30 g 04/30/21 [Rx Last Taken Unknown] levetiracetam 1,000 mg tablet 1,000 mg PO BID 05/20/21 [History Last Taken 06/13/21] albuterol sulfate 90 mcg/actuation aerosol inhaler 1 puff INHALATION Q6H PRN g 05/31/21 [History Last Taken 06/12/21] amlodipine 10 mg tablet 10 mg PO DAILY #90 tab 05/31/21 [Rx Last Taken Unknown] hydralazine 50 mg tablet 50 mg PO BID tab 05/31/21 [History Last Taken 06/13/21] cilostazol 50 mg PO BID 06/13/21 [History Last Taken Unknown] Allergy/AdvReac Type Severity Reaction Status Date / Time No Known Allergies Allergy Verified 06/13/21 14:07 Family History Sister Diabetes CAD (coronary artery disease) Mother CVA (cerebral vascular accident) CAD (coronary artery disease) Lung cancer Father CAD (coronary artery disease) Brother CAD (coronary artery disease) Surgical History History of coronary angioplasty (01/05/04) History of coronary artery stent placement (07/17/03) History of lobectomy of lung History of nephrectomy, left Social History (Updated 06/13/21 @ 17:18 by Germania Reece, MASTER TECHNICIAN-C) Smoking Status: Former smoker Tobacco: How many years used: 40 second hand exposure: No alcohol intake: current alcohol intake frequency: a few times a month Alcohol type: beer substance use type: does not use seatbelt use: always do you feel safe at home: Yes Results Lab / Micro Data Result Diagrams: 06/13/21 14:35 06/13/21 14:35 Charges/Coding Addendum Addendum: Patient was seen and examined today independently of Ana Reece, he came to the emergency room with complaints of fevers and chills over the last 2 days. He also complained of nonproductive cough. On examination he appeared his stated age. Vital signs as documented. Skin warm and dry and without overt rashes. Neck without JVD, neck was supple, trachea midline, thyroid was normal. Lungs clear bilaterally, normal air movement was noted. Heart exam notable for regular rhythm, normal sounds and absence of murmurs, rubs or gallops. Abdomen unremarkable and without evidence of organomegaly, masses, or abdominal aortic enlargement. Bowel sounds are present, abdomen is not distended. Extremities nonedematous, no cyanosis was noted, no clubbing was noted. Neuro: Cranial nerves II through XII are grossly intact, no focal motor deficits were noted, sensation to light touch and pinprick intact, motor exam 5/5 throughout. Psych: Patient is alert and oriented x3, he does not appear anxious or depressed, he does not appear agitated. Patient's chest x-ray showed no evidence of pneumonia, his COVID-19 test was unremarkable, his urinalysis was unremarkable. Patient's white blood cell count was 3.1, hemoglobin was 11. Patient was mildly hypoxic in the emergency room with a pulse ox of 88% on room air. His temp in the emergency room was 101.5. Patient will be admitted to PCU, he will be maintained on Zosyn, blood cultures were obtained in the emergency room. I have reviewed Ana Reece's history and physical including her medical assessment and plan of care and endorse it. Visit Charges Inpatient E&M: 48001 Init Hosp L3
[2021-06-13 17:23] LABS: White Blood Cells 0-5 SEEN /hpf (0-5)
[2021-06-13] MEDS: 0.9% Normal Saline 1,000 ML 125 ML IV (18:20)
[2021-06-13] MEDS: Ceftriaxone 1 GM/50 ML BAG IV (20:31)
[2021-06-13] MEDS: levETIRAcetam 1,000 MG Tablet 1000 MG PO (22:08)
[2021-06-13] MEDS: Atorvastatin Calcium 80 MG Tablet PO (22:08)
[2021-06-13] MEDS: Carvedilol 25 MG Tablet PO (22:08)
--- NOTE | 2021-06-13 23:08 | PCM.RX.CS ---
Consult Pharmacy has been consulted to manage selected antiobiotic: Vancomycin Type of Consult: New start Suspected Infection: Other Prior Doses of Antibiotics Received/Current Regimen: Medications Vancomycin HCl (Vancomycin) 1,000 mg in 200 mls @ 200 mls/hr IV Q24H DAVE Discontinued Medications Vancomycin HCl 1,250 mg/ (Sodium Chloride) 275 mls @ 167 mls/hr IV X1 ONE Stop: 06/13/21 22:38 Last Admin: 06/13/21 22:08 Dose: 167 mls/hr Labs: Sodium 131 mmol/L (136-145) L 06/13/21 14:35 Potassium 3.7 mmol/L (3.5-5.1) 06/13/21 14:35 Chloride 97 mmol/L (98-107) L 06/13/21 14:35 Carbon Dioxide 23.0 mmol/L (21.0-32.0) 06/13/21 14:35 Anion Gap 11 (5-15) 06/13/21 14:35 BUN 35 mg/dL (7-18) H 06/13/21 14:35 Creatinine 1.66 mg/dL (0.70-1.30) H 06/13/21 14:35 Est GFR (MDRD) Af Amer 53 mL/min (>60) L 06/13/21 14:35 Est GFR (MDRD) Non-Af 44 mL/min (>60) L 06/13/21 14:35 BUN/Creatinine Ratio 21.1 RATIO (10-20) H 06/13/21 14:35 Glucose 134 mg/dL (74-106) H 06/13/21 14:35 Microbiology: Microbiology 06/13/21 16:15 Mucosa - Nose Respiratory Panel (PCR) - Final 06/13/21 14:20 Mucosa - Nose SARS-CoV-2 Antigen (Rapid) - Final Weight used for dosin.8 kg Estimated Creatinine Clearance: 37.6 Goal Trough: 10-15 mcg/mL Pharmacy Plan for Drug Dosing: Pharmacy Service will continue to monitor and adjust dosing as required. Follow-Up Labs: Trough Vancomycin Labs to be done on [date and time ordered]: 06/15/21 @4791
[2021-06-14] VITALS (10 sets, daily range): BP systolic 106–134; BP diastolic 54–68; PULSE 70–88; RESP 16–18; TEMP 36.9–37.4; O2SAT 92–95
[2021-06-14] MEDS: 0.9% Normal Saline 1,000 ML 125 ML IV ×4 (01:15→23:33)
[2021-06-14 05:41] LABS: Absolute Lymphocyte Count 0.35 X10^3/uL (0.83-4.51); Absolute Neutrophil Count 1.2 X10^3/uL (2.0-7.7); Basophil# 0.01 X10^3/uL; Basophil% 0.5 % (0-1); Eosinophil# 0.08 X10^3/uL; Eosinophils% 3.8 % (0-5); Hematocrit 31.2 % (40-54); Hemoglobin 10.2 g/dL (13.0-16.5); Lymphocyte # 0.35 X10^3/ul (0.83-4.51); Lymphocyte % 16.6 % (19-41); Mean Corp Hgb Conc 32.7 g/dL (32-36); Mean Corpuscular Hgb 26.4 pg (27.0-32.0); Mean Corpuscular Volume 80.6 fL (80-94); Monocyte# 0.41 X10^3/uL; Monocyte% 19.4 % (0-10); NRBC Flagged by Analyzer 0 % (0-5); Neutrophil # 1.24 X10^3/uL (2.7-7.7); Neutrophil % 58.8 % (47-70); POSITIVE COUNT YES; POSITIVE DIFFERENTIAL YES; POSITIVE MORPHOLOGY YES; Platelet Count 90 K/mm3 (150-450); RBC Distribution Width CV 14.2 % (11.6-14.6); RBC Distribution Width SD 41.4 fl (35.1-43.9); Red Blood Count 3.87 M/mm3 (4.6-6.2); White Blood Count 2.1 K/mm3 (4.4-11.0)
[2021-06-14 06:00] LABS: Anion Gap 8 (5-15); BUN 23 mg/dL (7-18); BUN/Creat Ratio 24.1 RATIO (10-20); Calcium,Total 7.9 mg/dL (8.5-10.1); Chloride 106 mmol/L (98-107); Creatinine, Serum 0.95 mg/dL (0.70-1.30); EST Glomerular Filtration Rate 84 mL/min (>60); Est Glom Filt Rate - Afr Amer 101 mL/min (>60); Estimated Creatinine Clearance 65.64 ml/min; Glucose 103 mg/dL (74-106); Potassium 3.6 mmol/L (3.5-5.1); Sodium Level 135 mmol/L (136-145)
[2021-06-14 06:08] LABS: Differential Indicated SCAN CRITERIA MET
[2021-06-14] MEDS: Cilostazol 50 MG Tablet PO ×2 (06:49→14:59)
[2021-06-14] MEDS: Pantoprazole Sodium 20 MG Tablet PO (07:48)
[2021-06-14] MEDS: Aspirin E.C. 81 MG Tablet PO (07:48)
[2021-06-14] MEDS: Ceftriaxone 1 GM/50 ML BAG IV (08:59)
[2021-06-14] MEDS: levETIRAcetam 1,000 MG Tablet 1000 MG PO ×2 (09:00→20:51)
[2021-06-14] MEDS: Enoxaparin 40 MG/0.4 ML Syringe SC (09:00)
[2021-06-14] MEDS: Carvedilol 25 MG Tablet PO ×2 (09:44→20:51)
[2021-06-14] MEDS: Polyethylene Glycol 3350 17 GM PACKET PO (09:49)
[2021-06-14 11:45] LABS: Pathologist Review Reviewed
[2021-06-14 11:48] LABS: Pathologist Review Reviewed
--- NOTE | 2021-06-14 13:37 | CON.PCM.ID_ITS ---
Assessment & Plan Assessment/Plan (1) Metastatic renal cell carcinoma to lung: (2) Fever: PLAN: Unknown source. Bcx and ucx neg so far. Viral panel neg. ANC worse today, now 1200. Feeling better, no further fever on vanc/ceftriaxone. Has port in place, no focal symptoms or changes on exam. If no further fever a nd neg cxs with stable wbc, plan will be for home with augmentin 875mg bid for 3 more days. Will follow, thank you. Encouraged his to get covid vaccine. (3) ELANA (acute kidney injury): HPI Consult Data Date of Consult: 06/14/21 HPI Narrative HPI Narrative: KENN IRAHETA, is a 65 M on keytruda for metastatic RCC, presented yesterday with 2 days of shaking chills. No recent travel, is covid vaccinated ( is unvaccinated), no sick contacts, no issues with R chest port. Denies headache, sore throat, vision change, change in taste/smell, c ough/SOB, abd pain, n/v/d, rash, aches, dysuria or urine changes. Came to ED, fever to 101.5, admitted on vanc/ceftriaxone. Feeling much better today. Full ROS performed and neg except as noted above. [facility] Medical History Abnormal colonoscopy Adenocarcinoma of right lung Alcohol use Atherosclerotic heart disease of [place] coronary artery without angina pectoris Cardiology follow-up encounter COPD (chronic obstructive pulmonary disease) DDD (degenerative disc disease) Dyspnea Easy bruising Elevated troponin (05/15/21) Encephalopathy (05/15/21) Essential (primary) hypertension Former smoker Gastric reflux History of primary malignant neoplasm of left kidney Hyperlipidemia 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 Nonrheumatic aortic (valve) stenosis with insufficiency Port-A-Cath in place Seizure (05/15/21) Skin cancer Wears dentures Wears glasses Home Medications aspirin 81 mg PO DAILY 08/18/18 [History Last Taken 06/13/21] rosuvastatin [Crestor] 40 mg PO DAILY 08/18/18 [History Last Taken 06/12/21] carvedilol 25 mg tablet 25 mg PO BID 04/30/21 [History Last Taken 06/13/21] enalapril maleate 20 mg tablet 20 mg PO BID 04/30/21 [History Last Taken 06/13/21] esomeprazole magnesium 20 mg capsule,delayed release 20 mg PO PRN PRN 04/30/21 [History Last Taken Unknown] lidocaine-prilocaine 2.5 %-2.5 % topical cream 1 applic TOPICAL ONCE PRN 30 Days #30 g 04/30/21 [Rx Last Taken Unknown] levetiracetam 1,000 mg tablet 1,000 mg PO BID 05/20/21 [History Last Taken 06/13/21] albuterol sulfate 90 mcg/actuation aerosol inhaler 1 puff INHALATION Q6H PRN g 05/31/21 [History Last Taken 06/12/21] amlodipine 10 mg tablet 10 mg PO DAILY #90 tab 05/31/21 [Rx Last Taken Unknown] hydralazine 50 mg tablet 50 mg PO BID tab 05/31/21 [History Last Taken 06/13/21] cilostazol 50 mg PO BID 06/13/21 [History Last Taken Unknown] Allergy/AdvReac Type Severity Reaction Status Date / Time No Known Allergies Allergy Verified 06/13/21 14:07 Family History Sister Diabetes CAD (coronary artery disease) Mother CVA (cerebral vascular accident) CAD (coronary artery disease) Lung cancer Father CAD (coronary artery disease) Brother CAD (coronary artery disease) Surgical History History of coronary angioplasty (01/05/04) History of coronary artery stent placement (07/17/03) History of lobectomy of lung History of nephrectomy, left Social History (Updated 06/13/21 @ 17:18 by Germania Reece NP-C) Smoking Status: Former smoker Tobacco: How many years used: 40 second hand exposure: No alcohol intake: current alcohol intake frequency: a few times a month Alcohol type: beer substance use type: does not use seatbelt use: always do you feel safe at home: Yes Physical Exam Const alert, oriented x3 and no apparent distress General Appearance: cooperative Exam Limitations: no limitations HEENT normocephalic and head/scalp atraumatic Eyes PERRL and EOMs intact bilaterally Neck supple and No nodes Resp normal air movement and clear to auscultation bilaterally Cardio regular rate and regular rhythm GI normal to inspection, nondistended, normoactive bowel sounds Extremity no clubbing, cyanosis or edema Skin no rashes or lesions noted Skin Narrative: R chest port nontender, no swelling Neuro CN's II-XII intact bilaterally Lab / Micro Data Result Diagrams: 06/14/21 05:05 06/14/21 05:05 Labs: Laboratory Results - last 24 hr 06/13/21 14:35: WBC 3.1 L, RBC 4.17 L, Hgb 11.0 L, Hct 33.4 L, MCV 80.1, MCH 26.4 L, MCHC 32.9, RDW Std Deviation 41.3, RDW Coeff of [place] 14.1, Plt Count 87 L , MPV 9.9, Immature Gran % (Auto) 0.600, Neut % (Auto) 76.2 H, Lymph % (Auto) 7.4 L, [place] % (Auto) 13.2 H, Eos % (Auto) 2.3, Baso % (Auto) 0.3, Absolute Neuts (auto) 2.4, Absolute Lymphs (auto) 0.23 L, Nucleated RBC % 0, Diff Path Review Reviewed, Platelet Estimate MOD 06/13/21 14:35: Sodium 131 L, Potassium 3.7, Chloride 97 L, Carbon Dioxide 23.0, Anion Gap 11, BUN 35 H, Creatinine 1.66 H, Estim Creat Clear Calc 37.56, Est GFR (MDRD) Af Amer 53 L, Est GFR (MDRD) Non-Af 44 L, BUN/Creatinine Ratio 21.1 H, Glucose 134 H, Calcium 8.5, Total Bilirubin 0.70, AST 37, ALT 44, Alkaline Phos phatase 61, Total Protein 6.7, Albumin 3.3, Globulin 3.4, Albumin/Globulin Ratio 1.0, Lipase 56 L 06/13/21 14:35: Lactic Acid 1.4 06/13/21 16:45: Urine Color Yellow, Urine Clarity Clear, Urine pH 5.0, Ur Specific [place] 1.015, Urine Protein 15 H, Urine Glucose (UA) Normal, Urine Ketones Negative, Urine Occult Blood Negative, Urine Nitrite Negative, Urine Bilirubin Negative, Urine Urobilinogen Normal, Ur Leukocyte Esterase 100 H, Urine RBC 0 SEEN, Urine WBC 0-5 SEEN, Ur Squamous Epith Cells 0 SEEN, Urine Bacteria 0 SEEN, Urine Mucus 0 SEEN 06/14/21 05:05: WBC 2.1 L, RBC 3.87 L, Hgb 10.2 L, Hct 31.2 L, MCV 80.6, MCH 26.4 L, MCHC 32.7, RDW Std Deviation 41.4, RDW Coeff of [place] 14.2, Plt Count 90 L , MPV 10.0, Immature Gran % (Auto) 0.900, Neut % (Auto) 58.8, Lymph % (Auto) 16.6 L, [place] % (Auto) 19.4 H, Eos % (Auto) 3.8, Baso % (Auto) 0.5, Absolute Neuts (auto) 1.2 L, Absolute Lymphs (auto) 0.35 L, Nucleated RBC % 0, Diff Path Review Reviewed 06/14/21 05:05: Sodium 135 L, Potassium 3.6, Chloride 106, Carbon Dioxide 21.0, Anion Gap 8, BUN 23 H, Creatinine 0.95, Estim Creat Clear Calc 65.64, Est GFR (MDRD) Af Amer 101, Est GFR (MDRD) Non-Af 84, BUN/Creatinine Ratio 24.1 H, Glucose 103, Calcium 7.9 L Micro: Microbiology 06/13/21 16:15 Mucosa - Nose Respiratory Panel (PCR) - Final 06/13/21 14:20 Mucosa - Nose SARS-CoV-2 Antigen (Rapid) - Final Radiology Impression Chest X-Ray 06/13/21 15:12 IMPRESSION: No acute pathology Electronically Signed: Stanton Meyers DO at 15:36 EDT Tel , Service support , Abdomen/Pelvis CT 06/13/21 15:33 IMPRESSION: 1. Reidentification of large lobular mass of the right adrenal gland measuring at least 4 cm, suspicious for metastatic disease. Without contrast this is poorly evaluated but on the prior study with contrast a heterogeneous mass was visualized. 2. Reidentification of a rounded partially exophytic mass in the medial aspect of the midpole of the right kidney measuring at least 2.56 cm also demonstrated enhancement on the prior study which is suspicious for malignancy. Electronically Signed: Cedrick Perez MD at 16:36 EDT , Service support ,
--- NOTE | 2021-06-14 13:40 | CASEMGMT ---
LUPE GAR assessment: Face to Face with patient for initial transition planning/care coordination assessment. LUPE GAR introduced self and role at [facility], pt voices understanding and consents to assessment. Pt is sitting up in bed in no distress on room air. Pt is A/Ox4 and answers all questions appropriately. Care providers, pharmacy, and demographics verified. Presentation: Pt c/o fever, chills, abd pain, nausea x2 days. Pt states getting immunotherapy for renal cell carcinoma-last treatment 2 weeks ago Admitting dx: Fever of unknown origin, hypotension, hypoxia PCP: Dick Specialists: fuentes Cuevas Preferred Pharmacy: [facility] [place] Insurance: [facility] A/B, AeR Prescription Benefit: [employer] Living Will/HPOA: Pt states has HPOA and is aware that it's on file at [facility]. Pt states his , Karen Arshad, is HPOA. Pt states does not have a living will. LNOK: Karen Arshad, /HPOA Living Arrangements: Pt states lives with in 2 story home and states no concerns at home. Pt states is independent with ADL's. Transportation: Pt states drives self or drives and states no transportation concerns. DME/HHC: Pt states no current DME or need for any further DME. Pt states no concerns with going home at time of discharge. 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 Pt states does not smoke cigarettes or drink ETOH. Pt states no further concerns/needs. CM to follow for any further discharge planning/needs. Advised pt to ask for CM if any further questions/concerns/needs arise, voices understanding. Pt Goal: Home Plan: [place] LUPE GAR
--- NOTE | 2021-06-14 15:09 | PN_ITS ---
Documented by User: JOSIE Beebe 06/14/21 15:14 Subjective Subjective Patient seen and examined. Patient states he feels improved from last night. Patient states that he no longer feels feverish or chilled. Objective Data Objective Data Vital Signs: Vital Signs Temp Pulse Resp BP Pulse Ox 98.5 F 77 16 110/55 L 92 06/14/21 08:59 06/14/21 08:59 06/14/21 08:59 06/14/21 09:06 06/14/21 08:59 Oxygen Flow Rate (L/min) 2 Oxygen Delivery Method Room Air Weight: 192 lb 3.889 oz Body Mass Index (BMI) 31.8 Intake & Output: Intake and Output for Last 24 Hours 06/12/21 06/13/21 06/14/21 23:59 23:59 23:59 Intake Total 1189.05 / 1429.05 3899.58 / 3899.58 Balance 1189.05 / 1429.05 3899.58 / 3899.58 Lab / Micro Data Result Diagrams: 06/14/21 05:05 06/14/21 05:05 Labs: Laboratory Results - last 24 hr 06/13/21 14:35: Diff Path Review Reviewed, Platelet Estimate MOD DEC 06/13/21 14:35: Sodium 131 L, Potassium 3.7, Chloride 97 L, Carbon Dioxide 23.0, Anion Gap 11, BUN 35 H, Creatinine 1.66 H, Estim Creat Clear Calc 37.56, Est GFR (MDRD) Af Amer 53 L, Est GFR (MDRD) Non-Af 44 L, BUN/Creatinine Ratio 21.1 H, Glucose 134 H, Calcium 8.5, Total Bilirubin 0.70, AST 37, ALT 44, Alkaline Phosphatase 61, Total Protein 6.7, Albumin 3.3, Globulin 3.4, Albumin/Globulin Ratio 1.0, Lipase 56 L 06/13/21 14:35: Lactic Acid 1.4 06/13/21 16:45: Urine Color Yellow, Urine Clarity Clear, Urine pH 5.0, Ur Specific [place] 1.015, Urine Protein 15 H, Urine Glucose (UA) Normal, Urine Ketones Negative, Urine Occult Blood Negative, Urine Nitrite Negative, Urine Bilirubin Negative, Urine Urobilinogen Normal, Ur Leukocyte Esterase 100 H, Urine RBC 0 SEEN, Urine WBC 0-5 SEEN, Ur Squamous Epith Cells 0 SEEN, Urine Bacteria 0 SEEN, Urine Mucus 0 SEEN 06/14/21 05:05: WBC 2.1 L, RBC 3.87 L, Hgb 10.2 L, Hct 31.2 L, MCV 80.6, MCH 26.4 L, MCHC 32.7, RDW Std Deviation 41.4, RDW Coeff of Kailey 14.2, Plt Count 90 L , MPV 10.0, Immature Gran % (Auto) 0.900, Neut % (Auto) 58.8, Lymph % (Auto) 16.6 L, [place] % (Auto) 19.4 H, Eos % (Auto) 3.8, Baso % (Auto) 0.5, Absolute Neuts (auto) 1.2 L, Absolute Lymphs (auto) 0.35 L, Nucleated RBC % 0, Diff Path Review Reviewed 06/14/21 05:05: Sodium 135 L, Potassium 3.6, Chloride 106, Carbon Dioxide 21.0, Anion Gap 8, BUN 23 H, Creatinine 0.95, Estim Creat Clear Calc 65.64, Est GFR (MDRD) Af Amer 101, Est GFR (MDRD) Non-Af 84, BUN/Creatinine Ratio 24.1 H, Glucose 103, Calcium 7.9 L Micro: Microbiology 06/13/21 16:15 Mucosa - Nose Respiratory Panel (PCR) - Final 06/13/21 14:20 Mucosa - Nose SARS-CoV-2 Antigen (Rapid) - Final Radiography Diagnostic Testing: Radiology Impression Chest X-Ray 06/13/21 15:12 IMPRESSION: No acute pathology Electronically Signed: Stanton Meyers DO at 15:36 EDT Tel , Service support , Abdomen/Pelvis CT 06/13/21 15:33 IMPRESSION: 1. Reidentification of large lobular mass of the right adrenal gland measuring at least 4 cm, suspicious for metastatic disease. Without contrast this is poorly evaluated but on the prior study with contrast a heterogeneous mass was visualized. 2. Reidentification of a rounded partially exophytic mass in the medial aspect of the midpole of the right kidney measuring at least 2.56 cm also demonstrated enhancement on the prior study which is suspicious for malignancy. Electronically Signed: Cedrick Perez MD at 16:36 EDT , Service support , Physical Exam Const alert and oriented x3 General Appearance: cooperative HEENT normocephalic and head/scalp atraumatic Eyes conjunctivae normal and no scleral icterus Neck supple and no JVD General: trachea midline Resp normal respiratory effort and normal air movement Effort and Inspection: tachypneic Auscultation: diminished lung sounds Cardio regular rate, regular rhythm, S1 normal heart sound and S2 normal heart sound GI normal to inspection, nondistended, normoactive bowel sounds, soft to palpation and non-tender Extremity normal capillary refill and no clubbing, cyanosis or edema General Extremity: no tenderness to palpation of joints or extremities Skin General Skin Exam: no breakdown and turgor normal Lesions: no lesions Rashes: no rashes Neuro no focal motor deficits, no sensory deficits noted and deep tendon reflexes 2+ bilaterally Speech: speech normal Motor Exam: general weakness Psych thought process normal, cooperative and affect normal Appearance: appropriate Assessment & Plan Assessment/Plan (1) Fever of unknown origin (FUO): PLAN: 1. Fever of unknown origin -Chest x-ray negative for acute findings, abdomen and pelvis CT which is consistent with previous study which shows metastatic disease of the right kidney and right adrenal gland -Patient receives immunotherapy for renal cell carcinoma and follows with Dr. Vieira, last treatment 2 weeks ago -Urinalysis negative for infection -Will obtain CBC and BMP daily -PT and OT to eval and treat -Strict intake and outputs -Daily weights -Blood cultures pending -Per infectious disease will continue IV antibiotics for another 24 hours then patient okay to discharge home with p.o. Augmentin pending culture results 2. Acute hypotension -Likely secondary to #1 -Will hold all antihypertensives at this time, patient continues to be normotensive -Vital signs per protocol, trend BP 3. Hypoxia -Likely secondary to #1, hypoxia has resolved at this time patient currently on room air -O2 per protocol -As needed albuterol nebulizer treatments ordered 4. Hypertension -Vital signs per protocol, trend BP -Will hold all antihypertensives at this time due to hypotension upon presentation 5. Hyperlipidemia -Continue rosuvastatin 6. Metastatic renal cell carcinoma -Follows with Dr. Vieira, last immunotherapy treatment 2 weeks ago 7. History of coronary artery stent placement -Placed 07/17/2003 and 01/05/2004 -Continue Pletal DVT prophylaxis-subcu Lovenox This patient was seen by JOSIE Beebe under the supervision of Dr. Anderson. Documented by User: Dr. Antoni Anderson, 06/14/21 16:06 Objective Data Lab / Micro Data Result Diagrams: 06/14/21 05:05 06/14/21 05:05 Charges/Coding Addendum Addendum: Patient was seen and examined today independently of Ana Reece, I did talk with infectious diseases today, they felt that the patient should be kept on IV antibiotics for 1 more day and reevaluate her tomorrow, he might be able to be discharged tomorrow on oral Augmentin for 3 days. Patient denies any chills to this examiner, his T-max today was 99.3. On examination he appeared in good health and spirits. Vital signs as documented. Skin warm and dry and without overt rashes. Neck without JVD, neck was supple, trachea midline, thyroid was normal. Lungs clear bilaterally, normal air movement was noted. Heart exam notable for regular rhythm, normal sounds and absence of murmurs, rubs or gallops. Abdomen unremarkable and without evidence of organomegaly, masses, or abdominal aortic enlargement. Bowel sounds are present, abdomen is not distended. Extremities nonedematous, no cyanosis was noted, no clubbing was noted. Neuro: Cranial nerves II through XII are grossly intact, no focal motor deficits were noted, sensation to light touch and pinprick intact, motor exam 5/5 throughout. Psych: Patient is alert and oriented x3, he does not appear anxious or depressed, he does not appear agitated. I have reviewed Ana Reece's progress note including her medical assessment and plan of care and endorse it. Visit Charges Inpatient E&M: 15649 Subs Hosp L2
--- NOTE | 2021-06-14 15:13 | PCM.RX.CS ---
Consult Pharmacy has been consulted to manage selected antiobiotic: Vancomycin Type of Consult: Follow-up Suspected Infection: Other Prior Doses of Antibiotics Received/Current Regimen: Received 1250mg iv x 1 on 06.13.21. Labs: Sodium 135 mmol/L (136-145) L 06/14/21 05:05 Potassium 3.6 mmol/L (3.5-5.1) 06/14/21 05:05 Chloride 106 mmol/L (98-107) 06/14/21 05:05 Carbon Dioxide 21.0 mmol/L (21.0-32.0) 06/14/21 05:05 Anion Gap 8 (5-15) 06/14/21 05:05 BUN 23 mg/dL (7-18) H 06/14/21 05:05 Creatinine 0.95 mg/dL (0.70-1.30) 06/14/21 05:05 Est GFR (MDRD) Af Amer 101 mL/min (>60) 06/14/21 05:05 Est GFR (MDRD) Non-Af 84 mL/min (>60) 06/14/21 05:05 BUN/Creatinine Ratio 24.1 RATIO (10-20) H 06/14/21 05:05 Glucose 103 mg/dL (74-106) 06/14/21 05:05 Microbiology: Microbiology 06/13/21 16:15 Mucosa - Nose Respiratory Panel (PCR) - Final 06/13/21 14:20 Mucosa - Nose SARS-CoV-2 Antigen (Rapid) - Final Weight used for dosin.2 kg Estimated Creatinine Clearance: 66ml/min Goal Trough: 10-15 mcg/mL Pharmacy Plan for Drug Dosing: Renal function has improved from Cr 1.66 to 0.95. Will change dosing to 750mg iv q12h. Trough level ordered for 06.15.21. Pharmacy Service will continue to monitor and adjust dosing as required. Follow-Up Labs: Trough Vancomycin - 8.7 @2130 before 2200 dose
[2021-06-14] MEDS: Atorvastatin Calcium 80 MG Tablet PO (20:51)
[2021-06-15 03:00] VITALS: PULSE 78
[2021-06-15 03:14] VITALS: BP 143/60; PULSE 83; RESP 16; TEMP 36.4; O2SAT 96
[2021-06-15 06:12] LABS: Absolute Lymphocyte Count 0.45 X10^3/uL (0.83-4.51); Absolute Neutrophil Count 1.5 X10^3/uL (2.0-7.7); Basophil# 0.01 X10^3/uL; Basophil% 0.4 % (0-1); Eosinophil# 0.16 X10^3/uL; Eosinophils% 6.2 % (0-5); Hematocrit 28.6 % (40-54); Hemoglobin 9.4 g/dL (13.0-16.5); Lymphocyte # 0.45 X10^3/ul (0.83-4.51); Lymphocyte % 17.3 % (19-41); Mean Corp Hgb Conc 32.9 g/dL (32-36); Mean Corpuscular Hgb 26.6 pg (27.0-32.0); Mean Corpuscular Volume 80.8 fL (80-94); Mean Platelet Vol. 10.2 fl (6.2-12.0); Monocyte# 0.45 X10^3/uL; Monocyte% 17.3 % (0-10); NRBC Flagged by Analyzer 0 % (0-5); Neutrophil # 1.51 X10^3/uL (2.7-7.7); POSITIVE COUNT YES; POSITIVE DIFFERENTIAL YES; Platelet Count 99 K/mm3 (150-450); RBC Distribution Width SD 41.3 fl (35.1-43.9); Red Blood Count 3.54 M/mm3 (4.6-6.2); White Blood Count 2.6 K/mm3 (4.4-11.0)
[2021-06-15 06:19] LABS: Differential Indicated SCAN CRITERIA MET
[2021-06-15] MEDS: 0.9% Normal Saline 1,000 ML 125 ML IV (06:53)
[2021-06-15 06:57] LABS: ALB/GLOB Ratio 0.9 RATIO (0.9-2.4); AST(SGOT) 23 U/L (15-37); Alanine Aminotransfer ALT/SGPT 46 U/L (16-61); Albumin, Serum 2.8 g/dL (3.2-5.0); Alkaline Phosphatase 77 U/L (45-117); Anion Gap 6 (5-15); BUN 10 mg/dL (7-18); BUN/Creat Ratio 14.3 RATIO (10-20); Calcium,Total 7.6 mg/dL (8.5-10.1); Chloride 109 mmol/L (98-107); EST Glomerular Filtration Rate 119 mL/min (>60); Est Glom Filt Rate - Afr Amer 144 mL/min (>60); Estimated Creatinine Clearance 62.35 ml/min; Glucose 104 mg/dL (74-106); Potassium 3.4 mmol/L (3.5-5.1); Protein, Total 5.8 g/dL (6.4-8.2); Sodium Level 138 mmol/L (136-145)
[2021-06-15 07:00] VITALS: PULSE 83
[2021-06-15 08:21] VITALS: BP 136/64; PULSE 79; RESP 16; TEMP 36.9; O2SAT 95
[2021-06-15] MEDS: Aspirin E.C. 81 MG Tablet PO (08:23)
[2021-06-15] MEDS: levETIRAcetam 1,000 MG Tablet 1000 MG PO (08:24)
[2021-06-15] MEDS: Carvedilol 25 MG Tablet PO (08:24)
[2021-06-15] MEDS: Enoxaparin 40 MG/0.4 ML Syringe SC (08:24)
[2021-06-15] MEDS: Ceftriaxone 1 GM/50 ML BAG IV (09:25)
--- NOTE | 2021-06-15 09:30 | PCM.DC ---
Discharge Instructions Diet Discharge Diet: Low fat / Low cholesterol Activity Discharge Activity: Return to Normal Activity Dressing / Incision Call your doctor if you observe: Fever of 101 or Higher (that does not respond to tylenol or ibuprofen), Shortness of breath, Dizziness and Chest pain Follow Up Care Please Follow Up With: Jacob Jennings DO When: 1-2 weeks Test Results: Test results from this visit will be discussed in further detail at your follow-up appointment, if applicable. Discharge Plan Admission Admit Date/Time: 06/13/21 17:13 Primary Reason for Your Visit: Fever of unknown origin Attending Provider: Antoni Anderson Primary Care Provider: Jacob Jennings Consulting Providers: Artemio Leigh Patient Instructions: ED Chest Pain, Noncardiac Discharge Orders/Prescriptions Prescriptions: New amoxicillin-pot clavulanate [Augmentin] 875-125 mg tablet 1 tab PO BID Qty: 6 RF: 0 Continued enalapril maleate [Vasotec] 20 mg tablet 20 mg PO BID RF: 0 carvedilol 25 mg tablet 25 mg PO BID RF: 0 esomeprazole magnesium [Nexium] 20 mg capsule,delayed release(DR/EC) 20 mg PO PRN PRN (Reason: Indigestion) RF: 0 lidocaine-prilocaine 2.5-2.5 % cream 1 applic topical ONCE PRN (Reason: Port access ) 30 Days Qty: 30 RF: 2 albuterol sulfate 90 mcg/actuation HFA aerosol inhaler 1 puff inhalation Q6H PRN (Reason: SOB) RF: 0 amlodipine 10 mg tablet 10 mg PO DAILY Qty: 90 RF: 4 aspirin 81 MG tablet 81 mg PO DAILY RF: 0 rosuvastatin [Crestor] 40 MG tablet 40 mg PO DAILY RF: 0 cilostazol 50 mg tablet 50 mg PO BID RF: 0 levetiracetam [Keppra] 1,000 mg tablet 1,000 mg PO BID RF: 0 hydralazine 50 mg tablet 50 mg PO BID RF: 0 Referrals / Follow Up: Jacob Jennings DO [Primary Care Provider] -
[2021-06-15 09:35] VITALS: O2SAT 92
--- NOTE | 2021-06-15 09:35 | PCM.DC.SUM ---
Providers Date of Admission: 06/13/21 Primary Care Physician: Dr. Jacob Jennings, Consultations 06/13/21 19:07 Consult: Infectious Disease Routine Consulting Provider: Artemio Leigh Reason for Consult: Febrile illness EMERGENT Consult: No MD Notified: Yes Date Notified: 06/13/21 Time Notified: 19:07 Method of Notification: Verbal Method of Consult:: In-Person Reason For Visit: FEVER OF UNKNOWN ORIGIN Diagnosis Discharge Diagnosis (1) Fever of unknown origin (FUO): Status: Acute Code(s): R50.9 - Fever, unspecified Plan: 1. Fever of unknown origin -Chest x-ray negative for acute findings, abdomen and pelvis CT which is consistent with previous study which shows metastatic disease of the right kidney and right adrenal gland -Patient receives immunotherapy for renal cell carcinoma and follows with Dr. Vieira, last treatment 2 weeks ago -Urinalysis negative for infection -Strict intake and outputs -Daily weights -Blood cultures pending -Per infectious disease ok to discharge patient home today on augmentin x3days. 2. Acute hypotension -Likely secondary to #1 -Ok to restart antihypertensives today -Vital signs stable, trend BP 3. Hypoxia -Likely secondary to #1, hypoxia has resolved at this time patient currently on room air -As needed albuterol nebulizer treatments ordered 4. Hypertension -Vital signs per protocol, trend BP -Ok to restart antihypertensives today 5. Hyperlipidemia -Continue rosuvastatin 6. Metastatic renal cell carcinoma -Follows with Dr. Vieira, last immunotherapy treatment 2 weeks ago 7. History of coronary artery stent placement -Placed 07/17/2003 and 01/05/2004 -Continue Pletal DVT prophylaxis-subcu Lovenox This patient was seen by Germania Reece NP-C under the supervision of Dr. Anderson. Medications at Discharge Home Medications aspirin 81 mg PO DAILY 08/18/18 rosuvastatin [Crestor] 40 mg PO DAILY 08/18/18 carvedilol 25 mg tablet 25 mg PO BID 04/30/21 enalapril maleate 20 mg tablet 20 mg PO BID 04/30/21 esomeprazole magnesium 20 mg capsule,delayed release 20 mg PO PRN PRN 04/30/21 lidocaine-prilocaine 2.5 %-2.5 % topical cream 1 applic TOPICAL ONCE PRN 30 Days #30 g 04/30/21 levetiracetam 1,000 mg tablet 1,000 mg PO BID 05/20/21 albuterol sulfate 90 mcg/actuation aerosol inhaler 1 puff INHALATION Q6H PRN g 05/31/21 amlodipine 10 mg tablet 10 mg PO DAILY #90 tab 05/31/21 hydralazine 50 mg tablet 50 mg PO BID tab 05/31/21 cilostazol 50 mg PO BID 06/13/21 amoxicillin-pot clavulanate [Augmentin] 1 tab PO BID #6 tab 06/15/21 Hospital Course Operations None Procedures None Summary of Care Provided Minutes Spent on Discharge: 35 Physical Exam Const alert and oriented x3 General Appearance: cooperative HEENT normocephalic and head/scalp atraumatic Eyes conjunctivae normal and no scleral icterus Neck supple and no JVD General: trachea midline Resp normal respiratory effort and normal air movement Effort and Inspection: tachypneic Auscultation: diminished lung sounds Cardio regular rate, regular rhythm, S1 normal heart sound and S2 normal heart sound GI normal to inspection, nondistended, normoactive bowel sounds, soft to palpation and non-tender Extremity normal capillary refill and no clubbing, cyanosis or edema General Extremity: no tenderness to palpation of joints or extremities Skin General Skin Exam: no breakdown and turgor normal Lesions: no lesions Rashes: no rashes Neuro no focal motor deficits, no sensory deficits noted and deep tendon reflexes 2+ bilaterally Speech: speech normal Motor Exam: general weakness Psych thought process normal, cooperative and affect normal Appearance: appropriate Weight / BMI Weight Weight: 197 lb 12.074 oz Body Mass Index (BMI) 31.8 ABG / Lab / Microbiology Data Result Diagrams: 06/15/21 05:22 06/15/21 05:22 Laboratory: Laboratory Results - last 24 hr 06/13/21 14:35: Diff Path Review Reviewed 06/14/21 05:05: Diff Path Review Reviewed 06/15/21 05:22: WBC 2.6 L, RBC 3.54 L, Hgb 9.4 L, Hct 28.6 L, MCV 80.8, MCH 26.6 L, MCHC 32.9, RDW Std Deviation 41.3, RDW Coeff of Ka[place] 14.0, Plt Count 99 L, MPV 10.2, Immature Gran % (Auto) 0.800, Neut % (Auto) 58.0, Lymph % (Auto) 17.3 L, [place] % (Auto) 17.3 H, Eos % (Auto) 6.2 H, Baso % (Auto) 0.4, Absolute Neuts (auto) 1.5 L, Absolute Lymphs (auto) 0.45 L, Nucleated RBC % 0, Diff Path Review March06/15/21 05:22: Sodium 138, Potassium 3.4 L, Chloride 109 H, Carbon Dioxide 23.0, Anion Gap 6, BUN 10, Creatinine 0.70, Estim Creat Clear Calc 62.35, Est GFR (MDRD) Af Amer 144, Est GFR (MDRD) Non-Af 119, BUN/Creatinine Ratio 14.3, Glucose 104, Calcium 7.6 L, Total Bilirubin 0.50, AST 23, ALT 46, Alkaline Phosphatase 77, Total Protein 5.8 L, Albumin 2.8 L, Globulin 3.0, Albumin/Globulin Ratio 0.9 Microbiology: Microbiology 06/13/21 16:15 Mucosa - Nose Respiratory Panel (PCR) - Final 06/13/21 14:20 Mucosa - Nose SARS-CoV-2 Antigen (Rapid) - Final D/C Instructions Discharge Diet: Low fat / Low cholesterol Call your doctor if you observe: Fever of 101 or Higher (that does not respond to tylenol or ibuprofen), Shortness of breath, Dizziness and Chest pain Please Follow Up With: Jacob Jennings DO When: 1-2 weeks Meaningful Use Info Meaningful Use Diagnoses (Choose all that apply): None applicable Discharge Plan Admission Admit Date/Time: 06/13/21 17:13 Primary Reason for Your Visit: Fever of unknown origin Attending Provider: Antoni Anderson Primary Care Provider: Jacob Jennings Consulting Providers: Artemio Leigh Instructions Patient Instructions: ED Chest Pain, Noncardiac Additional Instructions / Restrictions: Patient Problems: Altered Health Status related to Hospitalization Patient Goals: *Optimal Level of Health *Keep Appointments *Medication Compliance *Remain Safe Discharge Orders/Prescriptions Prescriptions: New amoxicillin-pot clavulanate [Augmentin] 875-125 mg tablet 1 tab PO BID Qty: 6 RF: 0 Continued enalapril maleate [Vasotec] 20 mg tablet 20 mg PO BID RF: 0 carvedilol 25 mg tablet 25 mg PO BID RF: 0 esomeprazole magnesium [Nexium] 20 mg capsule,delayed release(DR/EC) 20 mg PO PRN PRN (Reason: Indigestion) RF: 0 lidocaine-prilocaine 2.5-2.5 % cream 1 applic topical ONCE PRN (Reason: Port access ) 30 Days Qty: 30 RF: 2 albuterol sulfate 90 mcg/actuation HFA aerosol inhaler 1 puff inhalation Q6H PRN (Reason: SOB) RF: 0 amlodipine 10 mg tablet 10 mg PO DAILY Qty: 90 RF: 4 aspirin 81 MG tablet 81 mg PO DAILY RF: 0 rosuvastatin [Crestor] 40 MG tablet 40 mg PO DAILY RF: 0 cilostazol 50 mg tablet 50 mg PO BID RF: 0 levetiracetam [Keppra] 1,000 mg tablet 1,000 mg PO BID RF: 0 hydralazine 50 mg tablet 50 mg PO BID RF: 0 Referrals / Follow Up: Jacob Jennings DO [Primary Care Provider] - Within 2 Weeks Disposition Disposition (needs filled in before D/C Order can be placed): Home, Self Care
[2021-06-15] MEDS: Potassium Chloride Oral Tablet 20 MEQ 40 MEQ PO (10:13)
[2021-06-15] MEDS: 0.9% Saline Lock 10 ML Syringe IV (11:47)
[2021-06-17 14:42] LABS: Pathologist Review Reviewed
--- NOTE | 2021-06-17 15:25 | CASEMGMT ---
RN CM Discharge Follow-up Phone Call: RONNY: [place] [employer]: 3 Call Date: 06/17/21 Discharge Date: 06/15/21 Time of Call: 1525 Duration: 3 min Admitting Diagnosis: fever of unknown origin RN CM completed follow-up phone call after recent hospitalization. Patient states he is doing okay. Patient had no questions or concerns regarding discharge instructions. Patient states he was able to fill prescription without any issues. Patient has appt scheduled previously with PCP on 07/08. RN CM encourage patient to call PCP and update office that he was recently in the hospital and if they would want to see him sooner. Patient voiced understanding.
== END 2021-06-15 11:58 | disposition home or self-care (01) | DRG 864 ==
LOC: ED 16:48 → PCU 06-14 05:08
PROVIDERS: Nurse Practitioner Family; Admitting Provider Internal Medicine; Emergency Provider Emergency Medicine; PCP Family Medicine; Visit Provider Internal Medicine
DX: R50.9 Fever, unspecified (principal); C64.1 Malignant neoplasm of right kidney, except renal pelvis; C79.71 Secondary malignant neoplasm of right adrenal gland; I10 Essential (primary) hypertension; I95.9 Hypotension, unspecified; E78.5 Hyperlipidemia, unspecified; R09.02 Hypoxemia; Z90.5 Acquired absence of kidney; Z90.2 Acquired absence of lung [part of]; Z95.5 Presence of coronary angioplasty implant and graft; Z79.82 Long term (current) use of aspirin; Z79.899 Other long term (current) drug therapy; Z85.118 Personal history of other malignant neoplasm of bronchus and lung; Z85.528 Personal history of other malignant neoplasm of kidney; Z87.891 Personal history of nicotine dependence
CPT/HCPCS: 36415; 36591; 71045; 74176; 80048; 80053; 81001; 83605; 83690; 85025; 87040; 87426; 87633; 93005; 99285; 99406; J7030; J7040; J7050; A4216

== ENCOUNTER → 2021-08-21 11:37 | Outpatient (CLI) | payer MEDICARE, OTHER, SELFPAY ==
[2021-08-21 12:41] LABS: Anion Gap 4 (5-15); BUN 36 mg/dL (7-18); BUN/Creat Ratio 20.7 RATIO (10-20); Calcium,Total 9.4 mg/dL (8.5-10.1); Chloride 109 mmol/L (98-107); Creatinine, Serum 1.74 mg/dL (0.70-1.30); EST Glomerular Filtration Rate 42 mL/min (>60); Est Glom Filt Rate - Afr Amer 50 mL/min (>60); Glucose 103 mg/dL (74-106); Potassium 4.3 mmol/L (3.5-5.1); Sodium Level 137 mmol/L (136-145)
[2021-08-21 12:45] LABS: Protein, Urine (Random) 12.6 mg/dL (<11.9); Protein:Creat Ratio 231 mg/g CRE (0-200)
== END ==
PROVIDERS: PCP Family Medicine; Visit Provider Internal Medicine Nephrology
DX: N17.9 Acute kidney failure, unspecified (principal)
CPT/HCPCS: 36415; 80048; 82570; 84156

== ENCOUNTER → 2021-09-10 10:34 | Outpatient (CLI) | payer MEDICARE, OTHER, SELFPAY ==
[2021-09-10 12:27] LABS: Albumin, Serum 3.7 g/dL (3.2-5.0); BUN 32 mg/dL (7-18); BUN/Creat Ratio 16.8 RATIO (10-20); Calcium,Total 9.2 mg/dL (8.5-10.1); Chloride 105 mmol/L (98-107); EST Glomerular Filtration Rate 38 mL/min (>60); Est Glom Filt Rate - Afr Amer 46 mL/min (>60); Glucose 99 mg/dL (74-106); Phosphorus 3.7 mg/dL (2.5-4.9); Potassium 4.4 mmol/L (3.5-5.1); Sodium Level 135 mmol/L (136-145)
== END ==
PROVIDERS: PCP Family Medicine; Visit Provider Internal Medicine Nephrology
DX: N17.9 Acute kidney failure, unspecified (principal)
CPT/HCPCS: 36415; 80069

== ENCOUNTER → 2021-09-17 10:12 | Outpatient (CLI) | payer MEDICARE, OTHER, SELFPAY | PROVIDERS: PCP Family Medicine; Visit Provider Internal Medicine Hematology & Oncology | DX: R69 Illness, unspecified (principal) | CPT/HCPCS: 36415; 80053; 81001 ==

== ENCOUNTER → 2021-09-25 07:12 | Outpatient (CLI) | payer MEDICARE, OTHER, SELFPAY ==
--- NOTE | 2021-09-25 07:13 | CT_ITS ---
STUDY: CT CHEST, ABDOMEN T PELVIS WITHOUT CONTRAST REASON FOR EXAM: Male, 65 years old. METASTATIC KIDNEY CA TO LUNG AND S/P RLL RESECTION RADIATION DOSAGE (If Supplied By Facility): CTDIvol = ( 23.52 ) mGy, DLP = ( 1973.99 ) mGycm TECHNIQUE: Transaxial imaging was performed without the administration of intravenous contrast material. Individualized dose optimization techniques were used for this CT. COMPARISON: Comparison is made with prior CT scan of the thorax dated 05/14/2021. FINDINGS: CHEST A right-sided portacatheter is seen with the tip in the superior vena cava. Small bilateral axillary lymph nodes. The previously seen right pleural effusion has resolved. Stable fibrocalcific scarring in the lateral aspect of the right upper lobe and volume loss in keeping with prior lobectomy. The previously seen 8.8 mm noncalcified nodule in the posterior medial aspect of the right upper lobe has decreased in size. It presently measures 4.3 mm. There is no demonstrated pleural abnormality. There are calcifications of the coronary arteries. There are multiple small lymph nodes within the mediastinum, which are normal in size and morphology most compatible with reactive lymph hyperplasia. Normal hilar regions. Normal unenhanced pulmonary arteries. There is atherosclerotic calcification of the aortic arch with tortuosity and elongation of the aortic arch and descending thoracic aorta. There are degenerative changes of the thoracic spine. Interval decrease in size of the right adrenal gland. 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 ABDOMEN Normal liver. Stable subcentimeters cyst in the medial right lobe of the liver. Normal gallbladder and extrahepatic biliary system. Normal spleen. Normal pancreas. Hyperplasia of the right adrenal gland. The previously seen dominant mass has markedly improved. There is a 1 cm cyst in the inferior lateral aspect of the right kidney. 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 Once again, the patient is status post left nephrectomy. Normal visualized stomach. Normal small intestine. Normal colon. The appendix is visualized and appears normal. There is diffuse atherosclerotic calcification of the abdominal aorta, without a demonstrated aneurysm. Normal inferior vena cava. Normal retroperitoneum. Stable large left lateral upper abdominal wall hernia containing intra-abdominal mesenteric fat and nondilated bowel loops. There are diffuse degenerative changes of the visualized lumbar spine. PELVIS Mild degree of diffuse bladder wall thickening although the bladder is not completely distended at this time. Prostatic calcifications. There is no pelvic fluid. There is no pelvic lymphadenopathy or mass lesion. There is diffuse atherosclerotic calcification of the pelvic arteries. CT/CT Chest, Abd, Pelvis WO Cont IMPRESSION: Status post left nephrectomy. Interval improvement in the previously seen right adrenal mass. The remainder of the examination is unchanged. Electronically Signed: Musa Crooks MD at 9:53 EST , Service support ,
== END ==
PROVIDERS: PCP Family Medicine; Referring Provider Internal Medicine Hematology & Oncology; Visit Provider Internal Medicine Hematology & Oncology
DX: C64.9 Malignant neoplasm of unspecified kidney, except renal pelvis (principal); C78.00 Secondary malignant neoplasm of unspecified lung; E27.9 Disorder of adrenal gland, unspecified; Z90.5 Acquired absence of kidney
CPT/HCPCS: 71250; 74176

== ENCOUNTER 2021-12-03 06:44 | Outpatient (CLI) | payer MEDICARE, OTHER, SELFPAY ==
--- NOTE | 2021-12-03 06:46 | CT_ITS ---
STUDY: CT ABDOMEN AND PELVIS WITHOUT CONTRAST REASON FOR EXAM: Male, 66 years old. Abdominal bloating. Metastatic renal cell carcinoma. TECHNIQUE: Transaxial images were obtained from the dome of the diaphragm to the symphysis pubis without oral contrast, and without intravenous contrast. Sagittal and coronal images were reconstructed. Individualized dose optimization techniques were used for this CT. COMPARISON: 09/25/2021 and 06/01/2021 CT abdomen pelvis. FINDINGS: Partially visualized lower chest: No acute finding. Sutures and scarring right middle lobe partially visible. Liver: No concerning lesions. Subcentimeter benign hypodensity inferior aspect right lobe. Gallbladder and biliary tree: No visible gallstones. No pericholecystic inflammation. No biliary ductal dilation. Pancreas: No pancreatic lesions or inflammation. Spleen: Normal size, no splenic lesions. Adrenal glands: No concerning masses. The right adrenal gland remains mildly prominent in size but the large mass within it on the 06/01/2021 examination has resolved. Kidneys and ureters: Exophytic soft tissue density mass posterior medial aspect lower pole right kidney, difficult to discretely measure on this noncontrast study, probably slightly larger compared to 1 09/25/2021. Subcentimeter fatty attenuation lesion more anteriorly in the lower pole of the right kidney probably a small angiomyolipoma. 1.9 cm cyst more posteriorly in the lower pole of the right kidney. No hydronephrosis or renal stone or acute renal abnormality. Status post left nephrectomy with no concerning mass in the nephrectomy operative bed. Bowel: Normal appendix. No obstruction or inflammation of the bowel. Left flank abdominal wall hernia again demonstrated, containing large and small bowel loops, which extend off this study, but with no evidence of more proximal obstruction. Urinary bladder: No stones or wall thickening. Reproductive: Prostate mildly enlarged. Vascular: No abdominal aortic aneurysm. Severe atherosclerosis of the abdominal aorta and its branches Retroperitoneal and peritoneal spaces: No ascites or free air. No retroperitoneal lesions. Osseous: No acute osseous abnormality. L5-S1 disc degeneration similar to prior. No aggressive osseous lesions. Abdominal and pelvic wall: Left flank hernia again demonstrated, not fully visualized on this study. Any findings described in the findings sections and not included in the impression are incidental and do not require imaging follow-up. CT/Abdomen/Pelvis without Cont IMPRESSION: No acute findings. Suspect slight interval enlargement of the lower pole mass in the right kidney compatible with renal cell carcinoma, not well evaluated without IV contrast. Left flank hernia containing large and small bowel loops, not fully visible. No evidence of obstruction. Electronically Signed: Sebastian Merchant MD at 7:43 EST Tel , Service support ,
== END 2021-12-03 23:59 | disposition short-term general hospital (02) ==
PROVIDERS: PCP Family Medicine; Referring Provider Family Medicine; Visit Provider Family Medicine
DX: R14.0 Abdominal distension (gaseous) (principal); C78.00 Secondary malignant neoplasm of unspecified lung; C64.9 Malignant neoplasm of unspecified kidney, except renal pelvis
CPT/HCPCS: 74176

== ENCOUNTER → 2022-03-04 | Outpatient (CLI) | payer MEDICARE, OTHER, SELFPAY ==
--- NOTE | 2022-03-04 07:01 | CT_ITS ---
INDICATION: F/U METASTATIC KIDNEY CANCER ON RX EXAMINATION: CT CHEST, ABDOMEN AND PELVIS WITHOUT CONTRAST TECHNIQUE: Helically acquired images were obtained of the chest, abdomen and pelvis. A radiation dose optimization technique was used for this scan. IV Contrast dosage and agent: None. Oral contrast: None. COMPARISON: CT abdomen and pelvis without contrast from 12/03/2021. CT chest/abdomen/pelvis without contrast from 09/25/2021. FINDINGS: Assessment is limited without IV contrast. CHEST: Lungs/pleura: The central airways are patent. Minimal emphysematous changes. Stable right lobectomy postoperative changes with unchanged areas of volume loss, pleural scarring and fibrosis. Stable 0.5 cm calcified nodular opacity in the right upper lobe. Scattered areas of subsegmental atelectasis in both lungs. No focal consolidation or suspicious mass. No pleural effusion or pneumothorax. Mediastinum: Heart size is normal. No pericardial effusion. A few grossly stable subcentimeter mediastinal nodes. No pathologically enlarged lymphadenopathy. No mediastinal mass. Vasculature: Limited assessment without contrast. Moderate arteriosclerotic calcifications in the thoracic aorta. Coronary artery calcifications. Normal course and caliber of the thoracic aorta and pulmonary arteries. ABDOMEN/PELVIS: Liver: Normal morphology. Stable subcentimeter lesion in segment 2 and IVB, too small to characterize but likely benign cysts. Otherwise, unremarkable unenhanced appearance. Gallbladder: Cholelithiasis. Normal morphology. No significant bile duct dilation. Spleen: Unremarkable unenhanced appearance. Pancreas: Unremarkable unenhanced appearance. No duct dilation. Adrenal glands: Stable right adrenal gland thickening, likely hyperplasia. Stable 1 cm Nodule in the Right lateral limb. No left adrenal mass. Kidneys: Stable left nephrectomy postoperative changes with no recurrent mass. There is a stable 1.6 cm simple right lower pole renal cyst. 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 There is a 3.7 x 3.2 by 3.4 cm mass in the medial aspect of the mid to lower right kidney (34/113. 91/129), previously measuring 3.7 x 3.0 x 3.4 cm on 12/03/2021. No hydronephrosis. Bladder: Collapsed and difficult to assess. GI tract: Stable left flank abdominal wall hernia is not entirely included in the [id number] but contains nonobstructive bowel fat. No significant bowel dilation. Small hiatal hernia. Peritoneum/mesentery/retroperitoneum: No masses. No free air or free fluid. Pelvis: No masses. No free air free fluid. Lymph nodes: Grossly stable mildly enlarged mesenteric and periaortic lymph nodes. For example: * Stable 2.0 x 1.5 cm periportal node. * Stable 1.6 x 1.1 cm aortocaval node. Vasculature: Moderate to severe arterial atherosclerotic disease. No abdominal aortic or iliac aneurysm. BONES/SOFT TISSUES: No acute fracture or subluxation. Mild multilevel spinal degenerative changes. No destructive osseous lesions. Soft tissues are unremarkable. CT/CT Chest, Abd, Pelvis WO Cont IMPRESSION: 1. 3.7 x 3.2 x 3.4 cm mass concerning for neoplasm in the mid to lower right kidney is grossly stable from 12/03/2021. 2. No metastatic disease in the remainder of the exam. Electronically Signed: Donnell Mao, at 8:55 EDT ,
== END | disposition home or self-care (01) ==
LOC: CT 07:00
PROVIDERS: PCP Family Medicine; Referring Provider Internal Medicine Hematology & Oncology; Visit Provider Internal Medicine Hematology & Oncology
DX: C78.00 Secondary malignant neoplasm of unspecified lung (principal); C64.9 Malignant neoplasm of unspecified kidney, except renal pelvis
CPT/HCPCS: 71250; 74176

== ENCOUNTER → 2022-05-27 | Outpatient (CLI) | payer MEDICARE, OTHER, SELFPAY ==
--- NOTE | 2022-05-27 08:29 | CT_ITS ---
STUDY: CT CHEST, ABDOMEN T PELVIS WITHOUT CONTRAST REASON FOR EXAM: Male, 66 years old. F/U METS KIDNEY CANCER ON RX. Patient is status post left nephrectomy. RADIATION DOSAGE (If Supplied By Facility): CTDIvol = ( 16.84 ) mGy, DLP = ( 1598.02 ) mGycm TECHNIQUE: Transaxial imaging was performed without the administration of intravenous contrast material. Multiplanar coronal and sagittal images were reformatted. Individualized dose optimization techniques were used for this CT. COMPARISON: Comparison is made with prior study dated 03/04/2022. FINDINGS: CHEST A right-sided portacatheter is in place with the tip in the superior vena cava. Status post partial right upper lobectomy. Stable fibrocalcific scarring in the lateral aspect of the right upper lobe. There is no demonstrated pleural abnormality. There are calcifications of the coronary arteries. There are multiple small lymph nodes within the mediastinum, which are normal in size and morphology most compatible with reactive lymph hyperplasia. Normal hilar regions. Normal unenhanced pulmonary arteries. There is atherosclerotic calcification of the aortic arch with tortuosity and elongation of the aortic arch and descending thoracic aorta. There are mild degenerative changes of the thoracic spine. Small hiatal hernia. Stable hyperplasia of the right adrenal gland. ABDOMEN Normal liver. Normal gallbladder and extrahepatic biliary system. Normal spleen. Normal pancreas. Stable hyperplasia of the left adrenal gland. Stable 1.6 cm simple right lower pole renal cyst. There is a 3.1 cm x 3.6 cm lobular soft tissue mass in the medial aspect of the mid to lower aspect of the right kidney. This is unchanged stable small angiomyolipoma in the lower pole of the right kidney.. The patient is status post left nephrectomy. There is a small hiatal hernia. Normal small intestine. Normal colon. The appendix is visualized and appears normal. There is diffuse atherosclerotic calcification of the abdominal aorta and its major visceral branches, without a demonstrated aneurysm. Normal inferior vena cava. Normal retroperitoneum. There is a right-sided inguinal hernia containing adipose tissue. There are degenerative changes of the visualized lumbar spine. PELVIS The urinary bladder is empty at the time of the examination. Prostatic calcifications. There is no pelvic fluid. There is no pelvic lymphadenopathy or mass lesion. There is diffuse atherosclerotic calcification of the pelvic arteries. Normal abdominal wall. Normal osseous structures. CT/CT Chest, Abd, Pelvis WO Cont IMPRESSION: Stable examination. Exophytic soft tissue mass in the posterior medial aspect of the mid to lower aspect of the right kidney. Stable hyperplasia of the right adrenal gland. Electronically Signed: Musa Crooks MD at 9:53 EDT ,
== END | disposition home or self-care (01) ==
LOC: CT 08:28
PROVIDERS: PCP Family Medicine; Referring Provider Internal Medicine Hematology & Oncology; Visit Provider Internal Medicine Hematology & Oncology
DX: C64.1 Malignant neoplasm of right kidney, except renal pelvis (principal); C78.00 Secondary malignant neoplasm of unspecified lung; C77.9 Secondary and unspecified malignant neoplasm of lymph node, unspecified
CPT/HCPCS: 36591; 71250; 74176; 96365; 96366; J1756; J7050; A4216

== ENCOUNTER → 2022-09-08 | Outpatient (CLI) | payer MEDICARE, OTHER, SELFPAY ==
--- NOTE | 2022-09-08 08:09 | CT_ITS ---
STUDY: CT CHEST, ABDOMEN T PELVIS WITHOUT CONTRAST REASON FOR EXAM: Male, 66 years old. Assess response to tx; met RCC. Patient is status post right lower lung resection and prior left nephrectomy. RADIATION DOSAGE (If Supplied By Facility): CTDIvol = ( 12.94 ) mGy, DLP = ( 1034.13 ) mGycm TECHNIQUE: Transaxial imaging was performed without the administration of intravenous contrast material. Individualized dose optimization techniques were used for this CT. COMPARISON: Comparison is made with prior study dated 05/27/2022. FINDINGS: CHEST A right-sided portacatheter is seen with the tip in the superior vena cava. Stable small benign-appearing bilateral axillary lymph nodes. The patient is status post right upper lobectomy. Stable fibrocalcific scarring is seen in the lateral aspect of the right upper lobe. Stable minimal scarring at the left lung base as well as along the medial aspect of the superior segment of the right lower lobe. There is no demonstrated pleural abnormality. There are calcifications of the coronary arteries. Normal mediastinum. Normal hilar regions. Normal unenhanced pulmonary arteries. There is atherosclerotic calcification of the aortic arch with tortuosity and elongation of the aortic arch and descending thoracic aorta. There are multi-level degenerative changes of the thoracic spine. Stable hyperplasia of the right adrenal gland. ABDOMEN Stable 8 mm cyst in the inferior medial aspect of the right lobe of the liver. Normal gallbladder and extrahepatic biliary system. Normal spleen. Normal pancreas. Stable nodular hyperplasia of the right adrenal gland. Stable 1.5 cm cyst in the mid posterior aspect lower pole. 4 cm x 3.8 cm lobular soft tissue mass in the medial aspect of the mid and lower pole aspects of the right kidney. A neoplastic process should be ruled out. This has increased slightly in size as compared to prior study. The patient is status post left nephrectomy. There is a small hiatal hernia. Normal small intestine. Normal colon. The appendix is visualized and appears normal. There is diffuse atherosclerotic calcification of the abdominal aorta and its major visceral branches, without a demonstrated aneurysm. Normal inferior vena cava. Normal retroperitoneum. There is a right-sided inguinal hernia containing adipose tissue. There are diffuse degenerative changes of the visualized lumbar spine. PELVIS Normal urinary bladder. Prostatic calcifications. The prostate measures 4.1 cm x 3.9 cm. There is no pelvic fluid. There is no pelvic lymphadenopathy or mass lesion. Normal visualized pelvic arteries. CT/CT Chest, Abd, Pelvis WO Cont IMPRESSION: Stable CT scan of the thorax. Slight enlargement of the previously seen lobular solid mass in the medial mid lower portions of the right kidney. Electronically Signed: Musa Crooks MD at 14:25 EDT ,
== END | disposition home or self-care (01) ==
LOC: CT 08:08
PROVIDERS: PCP Family Medicine; Referring Provider Nurse Practitioner Family; Visit Provider Nurse Practitioner Family
DX: C64.1 Malignant neoplasm of right kidney, except renal pelvis (principal)
CPT/HCPCS: 71250; 74176

== ENCOUNTER → 2022-10-14 | Outpatient (CLI) | payer MEDICARE, OTHER, SELFPAY ==
--- NOTE | 2022-10-14 11:53 | MRI_ITS ---
ACR Level 3 findings have been noted. An addendum which confirms receipt of the report will follow. HISTORY: Frequent headaches, history of renal cell carcinoma rule out brain metastasis, hypophysitis (immunotherapy). TECHNIQUE: Multiplanar and multisequence MR images of the brain were obtained before and after the intravenous administration of 18 cc Clariscan. 663 images. COMPARISON: None. FINDINGS: BRAIN PARENCHYMA: 1.2 x 1.6 cm solidly and heterogeneously enhancing mass in the left posterior parietal lobe with a hemosiderin ring of chronic blood products. Large surrounding region of vasogenic edema in the left posterior parietal and occipital lobes. Chronic white matter changes noted bilaterally. No abnormal focus of restricted diffusion to suggest acute infarct. CSF SPACES: Partial effacement of the left lateral ventricle without significant midline shift or effacement of basal cisterns. Background of generalized volume loss. Partially empty sella configuration noted. No suprasellar or sellar mass identified. VASCULAR SYSTEM: Major intracranial flow voids are maintained. PARANASAL SINUSES AND MASTOID AIR CELLS: Fluid and mucosal thickening in the ethmoid air cells and sphenoid sinus. ORBITS: Symmetric contents. MRI/Brain W/WO Contrast IMPRESSION: 1.6 cm enhancing mass in the left posterior parietal lobe containing old hemorrhage concerning for hemorrhagic metastasis. Large amount of surrounding edema with partial effacement of the left lateral ventricle. Paranasal sinus inflammatory disease. Chronic involutional white matter changes. Electronically Signed: Jesusita Borges MD at 13:44 EST ,
== END | disposition home or self-care (01) ==
PROVIDERS: PCP Family Medicine; Referring Provider Nurse Practitioner Family; Visit Provider Nurse Practitioner Family
DX: R51.9 Headache, unspecified (principal); C78.00 Secondary malignant neoplasm of unspecified lung; C64.9 Malignant neoplasm of unspecified kidney, except renal pelvis
CPT/HCPCS: 70553; A9575; A4216

== ENCOUNTER 2022-11-19 16:31 | Inpatient (IN) | payer MEDICARE, OTHER, SELFPAY ==
[2022-11-19] VITALS (8 sets, daily range): BP systolic 118–136; BP diastolic 61–69; PULSE 66–97; RESP 15–24; TEMP 36.3–36.6; O2SAT 87–98; BMI 31.4; BMI 30.7
--- NOTE | 2022-11-19 16:57 | EKG12_ITS ---
Test Reason : SOB Blood Pressure : / mmHG Vent. Rate : 085 BPM Atrial Rate : 085 BPM P-R Int : 136 ms QRS Dur : 078 ms QT Int : 362 ms P-R-T Axes : -01 009 044 degrees QTc Int : 430 ms Normal sinus rhythm Normal ECG Confirmed by ROSEY BAUTISTA, ENEIDA ([id number]), editor & co founder MATHEW VORA ([id number]) on 11/24/2022 12:22:59 PM Referred By: ALEXANDRIA/JAMES Confirmed By:ENEIDA CURRIE MD
--- NOTE | 2022-11-19 16:58 | EDS_ITS ---
HPI History of Present Illness Chief Complaint: Shortness of Breath Narrative Narrative: 67-year-old male multiple medical problems including history of right lower lobe lung carcinoma with lobectomy, kidney cancer with metastasis to lung and brain. He states he also has past medical history of COPD. For the last week he has had dyspnea on exertion and increasing shortness of breath. He feels like he cannot cough up any mucus. He denies any chest pain. No nausea or vomiting. No diaphoresis. While his symptoms started a week ago, approximately 3 days ago he went to see his primary care provider. He was placed on Levaquin and a prednisone burst and is also taking Mucinex. Despite using albuterol, he states he feels short of breath and has had dyspnea on exertion. He denies any leg swelling, no other symptoms except for occasional runny nose. He states when he blows his nose, he gets epistaxis. 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 Contact with or suspected exposure to other viral communicable disease COPD (chronic obstructive pulmonary disease) COVID-19 DDD (degenerative disc disease) Dyspnea Easy bruising Elevated troponin (05/15/21) Encephalopathy (05/15/21) Encounter for immunotherapy Encounter for immunotherapy Epistaxis Essential (primary) hypertension Former smoker Frequent headaches Gastric reflux History of primary malignant neoplasm of left kidney Hx of radiation therapy Hyperlipidemia Iron deficiency anemia due to chronic blood loss 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 Nonrheumatic aortic (valve) stenosis with insufficiency Port-A-Cath in place Seizure (05/15/21) Sinus congestion Skin cancer Wears dentures Wears glasses Home Medications aspirin 81 mg tablet,delayed release 81 mg PO DAILY HEART HEALTH 08/18/18 [History Last Taken 06/13/21] rosuvastatin 40 mg tablet (Crestor) 40 mg PO DAILY CHOLESTEROL 08/18/18 [History Last Taken 06/12/21] carvedilol 25 mg tablet 25 mg PO BID blood pressure 04/30/21 [History Last Taken 06/13/21] esomeprazole magnesium 20 mg capsule,delayed release (Nexium) 20 mg PO PRN PRN Indigestion 04/30/21 [History Last Taken Unknown] albuterol sulfate 90 mcg/actuation aerosol inhaler 1 puff inhalation Q6H PRN SOB 05/31/21 [History Last Taken 06/12/21] amlodipine 10 mg tablet 10 mg PO DAILY #90 tabs 05/31/21 [Rx Last Taken Unknown] hydralazine 50 mg tablet 50 mg PO BID diuretic 05/31/21 [History Last Taken 06/13/21] tizanidine 4 mg tablet 4 mg PO TID PRN Atrial Fibrillation 11/19/21 [History Last Taken Unknown] triamcinolone acetonide 0.1 % topical cream 1 applic topical BID 12/17/21 [History Last Taken Unknown] lidocaine-prilocaine 2.5 %-2.5 % topical cream 1 applic topical ONCE PRN Port access 30 days #30 grams 01/28/22 [Rx Last Taken Unknown] calcium carbonate 500 mg calcium (1,250 mg) chewable tablet (Calcium 500) 500 mg PO DAILY 04/01/22 [History Last Taken Unknown] dexamethasone 4 mg tablet 4 mg PO TID #30 tabs 10/14/22 [Rx Last Taken Unknown] Allergy/AdvReac Type Severity Reaction Status Date / Time No Known Allergies Allergy Verified 11/19/22 16:32 Family History Sister Diabetes CAD (coronary artery disease) Mother CVA (cerebral vascular accident) CAD (coronary artery disease) Lung cancer Father CAD (coronary artery disease) Brother CAD (coronary artery disease) Surgical History History of coronary angioplasty (01/05/04) History of coronary artery stent placement (07/17/03) History of lobectomy of lung History of nephrectomy, left Social History Smoking Status: Former smoker Tobacco: How many years used: 40 second hand exposure: No alcohol intake: current alcohol intake frequency: a few times a month Alcohol type: beer substance use type: does not use seatbelt use: always do you feel safe at home: Yes ROS ROS ED ROS Narrative Constitutional: No fever, no chills. HEENT: No sore throat. No neck pain. No loss of vision. Occasional rhinorrhea. Epistaxis after blowing nose. Cardiovascular: No chest pain. No palpitations. No pedal edema. Respiratory: Occasional cough, positive dyspnea on exertion and shortness of breath. No orthopnea. Abdominal: No abdominal pain. No nausea. No vomiting. Genitourinary: No dysuria. No hematuria. Musculoskeletal: No myalgias. No arthralgias. Neurologic: No headaches. No dizziness. No lightheadedness. Skin: No rash. No change in color. Psychiatric: No depression. No anxiety. EXAM Physical Exam Narrative Exam Narrative: Afebrile. Vital signs noted. HEENT: Normocephalic. Atraumatic. PERRL, EOMI. Neck soft and supple. No point tenderness or step off. Cardiovascular: Regular rate and rhythm. No murmurs, rubs, or gallops appreciated. Respiratory: No tachypnea. Lungs clear to auscultation bilaterally except occasional rhonchi left lower lobe. Diminished breath sounds right base. Gastrointestinal: Abdomen soft, nontender, with normoactive bowel sounds. No rebound or guarding. Neurological: Awake. Alert. Nonfocal, nonlateralizing. Skin: No rash. Normal color. No pallor. Musculoskeletal: No pedal edema. Full range of motion extremities. Const Vital Signs: 11/19/22 16:32 11/19/22 16:41 11/19/22 16:44 Temperature 97.3 F L Temperature Source Temporal Pulse Rate 97 92 Respiratory Rate 24 H 15 Respiratory Effort Short of Breath Respiratory Pattern Tachypnea Blood Pressure 118/66 Blood Pressure Mean 83 Pulse Ox 92 98 Oxygen Delivery Method Room Air Nasal Cannula Room Air Oxygen Flow Rate (L/min) 2 11/19/22 17:24 11/19/22 17:24 11/19/22 18:52 Temperature Temperature Source Pulse Rate 86 83 Respiratory Rate 18 16 Respiratory Effort Respiratory Pattern Blood Pressure 136/69 H Blood Pressure Mean 91 Pulse Ox 96 93 Oxygen Delivery Method Nasal Cannula Nasal Cannula Oxygen Flow Rate (L/min) 2 2 11/19/22 20:10 Temperature Temperature Source Pulse Rate Respiratory Rate Respiratory Effort Respiratory Pattern Blood Pressure Blood Pressure Mean Pulse Ox 87 Oxygen Delivery Method Room Air Oxygen Flow Rate (L/min) MDM MDM MDM Narrative Medical decision making narrative: Patient has a complicated history. In the differential diagnosis is COPD exacerbation versus chronic bronchitis versus pneumonia. He has already taken his Levaquin today. I obtained and reviewed his laboratory work. Review of his CBC shows neutropenia with a WBC count of 3.8, hemoglobin stable at 9.8 and anemic, normal platelet count of 237. BMP was obtained and reviewed which shows CO2 of 20 with a BUN elevated at 29 and creatinine 1.07. Glucose appropriately elevated at 154 with a normal anion gap of 9. High-sensitivity troponin is 5. BNP is normal at 33. I am not concerned for acute coronary syndrome given the negative troponin and an EKG which demonstrates normal sinus rhythm at 85 bpm without ectopy or acute ST changes, no STEMI. This was interpreted by myself. I am not concerned for CHF as he has a normal BNP. Chest x-ray interpreted by myself shows opacities in the lower lung post suspicious for pneumonia, but he has had lobectomy on the right. I turned off his oxygen, and the patient desatted to 87% on room air at rest, he does not wear oxygen at home. Given his hypoxia, I discussed the patient with Dr. Cat who will admit the patient to the medical surgical floor. Disposition is admit in stable condition. Lab Data Attestation: I reviewed the patient's lab results. Labs: Laboratory Results - last 24 hr 11/19/22 11/19/22 11/19/22 16:58 16:58 16:58 WBC 3.8 L RBC 3.80 L Hgb 9.8 L Hct 29.7 L MCV 78.2 L MCH 25.8 L MCHC 33.0 RDW Std Deviation 41.7 RDW Coeff of Kailey 14.9 H Plt Count 237 MPV 8.8 Neut % (Auto) Not Reportable Absolute Neuts (auto) 3.1 Absolute Lymphs (auto) 0.50 L Total Counted 100 Neutrophils % (Manual) 79 H Band Neutrophils % 2 Lymphocytes % (Manual) 13 L Monocytes % (Manual) 4 Metamyelocytes % 1 Myelocytes % 1 H Diff Path Review May foll Sodium 136 Potassium 3.7 Chloride 107 Carbon Dioxide 20.0 L Anion Gap 9 BUN 29 H Creatinine 1.07 Estim Creat Clear Calc 58.80 Est GFR (MDRD) Af Amer 88 Est GFR (MDRD) Non-Af 73 BUN/Creatinine Ratio 27.1 H Glucose 154 H Calcium 8.8 Troponin I High Sens 5 B-Natriuretic Peptide 33.0 Radiography Diagnostic Testing: Clinical Impression(s) from Imaging Studies Chest X-Ray 11/19/22 17:10 IMPRESSION: Opacities in the lower lobes suspicious for pneumonia. Electronically Signed: Lesly Montilla MD at 17:51 EST Reading Location ID and State: [id number] / Tel , Service support , Discharge Plan Dx/Rx/DC Orders Clinical Impression: Pneumonia, Hypoxia, History of primary malignant neoplasm of left kidney, History of lobectomy of lung, 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 Disposition Disposition: Acute Care [facility]
[2022-11-19] MEDS: MethylPREDNISolone 125 MG/2 ML Vial IV (17:06)
[2022-11-19 17:07] LABS: Hematocrit 29.7 % (40-54); Hemoglobin 9.8 g/dL (13.0-16.5); Mean Corpuscular Hgb 25.8 pg (27.0-32.0); Mean Corpuscular Volume 78.2 fL (80-94); Mean Platelet Vol. 8.8 fl (6.2-12.0); POSITIVE COUNT YES; POSITIVE DIFFERENTIAL YES; POSITIVE MORPHOLOGY YES; Platelet Count 237 K/mm3 (150-450); RBC Distribution Width CV 14.9 % (11.6-14.6); RBC Distribution Width SD 41.7 fl (35.1-43.9); White Blood Count 3.8 K/mm3 (4.4-11.0)
--- NOTE | 2022-11-19 17:10 | RAD_ITS ---
INDICATION: Shortness of Breath EXAMINATION/TECHNIQUE: X-RAY - XR Chest 2 Views COMPARISON: CT chest 09/08/2022. FINDINGS: LINES/DEVICES: Venous port terminates in the SVC. LUNGS: Small right pleural effusion, new compared to the prior study. Hazy opacities in the lower lungs bilaterally, suspicious for pneumonia. MEDIASTINUM AND CARDIOVASCULAR STRUCTURES: Cardiac silhouette not enlarged. Central airways and mediastinal contour are unremarkable. BONES AND SOFT TISSUES: Unremarkable. RAD/Chest PA and Lateral IMPRESSION: Opacities in the lower lobes suspicious for pneumonia. Electronically Signed: Lesly Montilla MD at 17:51 EST Reading Location ID and State: [id number] / Tel , Service support ,
[2022-11-19] MEDS: Ipratropium/Albuterol Sulfate 3 ML AMPUL.NEB INHALATION (17:23)
[2022-11-19 17:28] LABS: Anion Gap 9 (5-15); BUN 29 mg/dL (7-18); BUN/Creat Ratio 27.1 RATIO (10-20); Calcium,Total 8.8 mg/dL (8.5-10.1); Chloride 107 mmol/L (98-107); Creatinine, Serum 1.07 mg/dL (0.70-1.30); EST Glomerular Filtration Rate 73 mL/min (>60); Est Glom Filt Rate - Afr Amer 88 mL/min (>60); Glucose 154 mg/dL (74-106); Potassium 3.7 mmol/L (3.5-5.1); Sodium Level 136 mmol/L (136-145); Troponin-I HS 5 pg/mL (3.0-78.0)
[2022-11-19 17:39] LABS: Differential Indicated MANUAL DIFF
[2022-11-19 17:45] LABS: Lymphocyte 13 % (19-41); Metamyelocyte 1 % (0-1); Monocyte 4 % (0-10); Myelocyte 1 % (0-0); Neutrophil-Band 2 % (0-5); Neutrophil-Segmented 79 % (47-70); Total Cells Counted 100 (MANUAL DIFF)
[2022-11-19 17:46] LABS: Absolute Neutrophil Count 3.1 X10^3/uL (2.0-7.7)
--- NOTE | 2022-11-19 20:16 | HP.PCM.HOS_ITS ---
HPI - General General Date of Admission: 11/19/22 Date of Service: 11/19/22 Chief Complaint: shortness of breath HPI Narrative KENN IRAHETA, is a 67 M with a PMh as outlined who presents via the ED on 11/19/2022 with a complaint of shortness of breath which had been going on for ~ 1 week. He had an associated cough but was unable to expectorate. He denied any fever, chills, nausea, vomiting, chest pain or any other symptoms. REview of s tems is otherwise negative. He saw his PCP and was placed on levaquin and PO prednisone. His symptoms however persisted so he came in to the ED. Vitals were temp of 97.3F, ND of 83 and RR of 16, with BP of 136/69/ He was saturating at 87% on room air. CBC showed hb of 9.8 with wbc of 3.8 and rickey telets of 237. Chemistry was remarkable for bicarb of 20 but was otherwise largely normal. BNp was 33. CXR showed opacities in the lower lobes suspicious for pneumonia. He is being admitted to be managed for hypoxia due to community acquired pneumonia. COVID and influenza screens were negative. [facility] Medical History Abnormal colonoscopy Adenocarcinoma of right lung Alcohol use Anemia Atherosclerotic heart disease of [place] coronary artery without angina pectoris Brain metastasis Contact with or suspected exposure to other viral communicable disease COPD (chronic obstructive pulmonary disease) COVID-19 DDD (degenerative disc disease) Dyspnea Easy bruising Elevated troponin (05/15/21) Encephalopathy (05/15/21) Encounter for immunotherapy Encounter for immunotherapy Epistaxis Essential (primary) hypertension Former smoker Frequent headaches Gastric reflux History of primary malignant neoplasm of left kidney Hx of radiation therapy Hyperlipidemia Iron deficiency anemia due to chronic blood loss 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 Nonrheumatic aortic (valve) stenosis with insufficiency Port-A-Cath in place Seizure (05/15/21) Sinus congestion Skin cancer Wears dentures Wears glasses Home Medications aspirin 81 mg tablet,delayed release 81 mg PO DAILY HEART HEALTH 08/18/18 [History Last Taken 06/13/21] rosuvastatin 40 mg tablet (Crestor) 40 mg PO DAILY CHOLESTEROL 08/18/18 [History Last Taken 06/12/21] carvedilol 25 mg tablet 25 mg PO BID blood pressure 04/30/21 [History Last Taken 06/13/21] esomeprazole magnesium 20 mg capsule,delayed release (Nexium) 20 mg PO PRN PRN Indigestion 04/30/21 [History Last Taken Unknown] albuterol sulfate 90 mcg/actuation aerosol inhaler 1 puff inhalation Q6H PRN SOB 05/31/21 [History Last Taken 06/12/21] hydralazine 50 mg tablet 50 mg PO BID diuretic 05/31/21 [History Last Taken 06/13/21] tizanidine 4 mg tablet 4 mg PO TID PRN Atrial Fibrillation 11/19/21 [History Last Taken Unknown] triamcinolone acetonide 0.1 % topical cream 1 applic topical BID Check with primary doctor 12/17/21 [History Last Taken Unknown] lidocaine-prilocaine 2.5 %-2.5 % topical cream 1 applic topical ONCE PRN Port access 30 days #30 grams 01/28/22 [Rx Last Taken Unknown] calcium carbonate 500 mg calcium (1,250 mg) chewable tablet (Calcium 500) 500 mg PO DAILY Check with primary doctor 04/01/22 [History Last Taken Unknown] amlodipine 10 mg tablet 10 mg PO DAILY Check with primary doctor 11/19/22 [History Last Taken Unknown] levofloxacin 500 mg tablet 500 mg PO DAILY antibiotic 11/19/22 [History Last Taken Unknown] prednisone 20 mg tablet 20 mg PO DAILY steroid 11/19/22 [History Last Taken Unknown] Allergy/AdvReac Type Severity Reaction Status Date / Time No Known Allergies Allergy Verified 11/19/22 16:32 Family History Sister Diabetes CAD (coronary artery disease) Mother CVA (cerebral vascular accident) CAD (coronary artery disease) Lung cancer Father CAD (coronary artery disease) Brother CAD (coronary artery disease) Surgical History History of coronary angioplasty (01/05/04) History of coronary artery stent placement (07/17/03) History of lobectomy of lung History of nephrectomy, left Social History Smoking Status: Former smoker Tobacco: How many years used: 40 second hand exposure: No alcohol intake: current alcohol intake frequency: a few times a month Alcohol type: beer substance use type: does not use seatbelt use: always do you feel safe at home: Yes ROS Review of Systems ROS Unobtainable: Denies due to encephalopathy Constitutional Constitutional: Reports chills, fatigue, malaise and weakness; Denies anorexia, change in weight or fever(s) ENT HEENT: Denies dysphagia, headache(s), nasal congestion, sinus pressure or sore throat Cardiovascular Cardiovascular: Reports dyspnea on exertion; Denies chest pain, edema, lightheadedness, orthopnea, palpitations, rapid heart rate or syncope Respiratory/Chest Respiratory/Chest: Reports cough, dyspnea, shortness of breath at rest, shortness of breath with exertion and wheezing; Denies excessive phlegm production, hemoptysis or productive cough Gastrointestinal Gastrointestinal: Denies abdominal pain, coffee ground emesis, constipation, diarrhea, nausea or vomiting Genitourinary Genitourinary: Denies burning urination Neurologic Neurologic: Denies confusion, dizziness, focal weakness, headache(s), seizures or syncope Psychiatric Psychiatric: Denies anxiety Endocrine Endocrinology: Denies change in body appearance Hematologic/Lymphatic Hematologic/Lymphatic: Denies anemia Vital Signs Vital Signs Vital Signs: 11/19/22 16:32 11/19/22 16:41 11/19/22 16:44 Temperature 97.3 F L Temperature Source Temporal Pulse Rate 97 92 Respiratory Rate 24 H 15 Respiratory Effort Short of Breath Respiratory Pattern Tachypnea Blood Pressure 118/66 Blood Pressure Mean 83 Pulse Ox 92 98 Oxygen Delivery Method Room Air Nasal Cannula Room Air Oxygen Flow Rate (L/min) 2 11/19/22 17:24 11/19/22 17:24 11/19/22 18:52 Temperature Temperature Source Pulse Rate 86 83 Respiratory Rate 18 16 Respiratory Effort Respiratory Pattern Blood Pressure 136/69 H Blood Pressure Mean 91 Pulse Ox 96 93 Oxygen Delivery Method Nasal Cannula Nasal Cannula Oxygen Flow Rate (L/min) 2 2 11/19/22 20:10 Temperature Temperature Source Pulse Rate Respiratory Rate Respiratory Effort Respiratory Pattern Blood Pressure Blood Pressure Mean Pulse Ox 87 Oxygen Delivery Method Room Air Oxygen Flow Rate (L/min) Weight Weight: 195 lb Body Mass Index (BMI) 31.4 Physical Exam Const alert, oriented x3, no apparent distress, average body habitus and healthy appearing HEENT normocephalic, head/scalp atraumatic, hearing grossly normal bilaterally and moist oral mucous membranes Mouth: oral and palatal mucosa normal Eyes PERRL and EOMs intact bilaterally Neck no lymphadenopathy, supple and no JVD Resp Resp Narrative: diminished breath sounds bibasally, no wheezes or crackles. On 2L of oxyygen by nasal canula Cardio regular rate, regular rhythm, S1 normal heart sound, S2 normal heart sound and no murmurs GI normal to inspection, nondistended, normoactive bowel sounds, soft to palpation, non-tender and non-distended Extremity normal to inspection, full ROM and no clubbing, cyanosis or edema Neuro oriented x3, CN's II-XII intact bilaterally, moves all extremities and no focal motor deficits Sensorium / Orientation: awake and alert Motor Exam: strength 5/5 throughout Psych affect normal Results Lab / Micro Data Result Diagrams: 11/20/22 05:37 11/19/22 16:58 Labs: Laboratory Results - last 24 hr 11/19/22 16:58: WBC 3.8 L, RBC 3.80 L, Hgb 9.8 L, Hct 29.7 L, MCV 78.2 L, MCH 25.8 L, MCHC 33.0, RDW Std Deviation 41.7, RDW Coeff of Kailey 14.9 H, Plt Count 237, MPV 8.8, Neut % (Auto) Not Reportable, Absolute Neuts (auto) 3.1, Absolute Lymphs (auto) 0.50 L, Total Counted 100, Neutrophils % (Manual) 79 H, Band Neutrophils % 2, Lymphocytes % (Manual) 13 L, Monocytes % (Manual) 4, Metamyelocytes % 1, Myelocytes % 1 H, Diff Path Review March11/19/22 16:58: Sodium 136, Potassium 3.7, Chloride 107, Carbon Dioxide 20.0 L, Anion Gap 9, BUN 29 H, Creatinine 1.07, Estim Creat Clear Calc 58.80, Est GFR (MDRD) Af Amer 88, Est GFR (MDRD) Non-Af 73, BUN/Creatinine Ratio 27.1 H, Glucose 154 H, Calcium 8.8, Troponin I High Sens 5 11/19/22 16:58: B-Natriuretic Peptide 33.0 Micro: Microbiology 11/19/22 17:01 Nasal Secretion SARS-CoV-2 & FLU Antigen (Rapid) - Final Radiology Impression Chest X-Ray 11/19/22 17:10 IMPRESSION: Opacities in the lower lobes suspicious for pneumonia. Electronically Signed: Lesly Montilla MD at 17:51 EST Reading Location ID and State: [id number] / Tel , Service support , Assessment & Plan Assessment/Plan (1) Pneumonia: (2) Hypoxia: PLAN: Plan #Hypoxia due to community acquired pneumonia * admit to med surg * C XR showed opacities in lower lobes suspicious for pneumonia * had been on levaquin on outpatient basis; took his levaquin dose today * start on IV ceftriaxone and azithromycin * check urine for strep and legionella * IV solumedrol * titrate oxygen to maintain sats >90% * breathing treatment with bronchodilators * sputum cultures and blood cultures * #Community acquired pneumonia: as above #History of right lower lobe lung cancer s/p lobectomy * stable * #History of left renal cancer with brain mets * follow up with oncology on outpatient basis * on dexamethasone * #Recurrent epistaxis * says he has been having recurrent epistaxis, associated with blood clots. NOt having any nose bleed now * will monitor closely * #Hyperlipidemia: on rosuvastatin #Hypertension; on carvedilol and amlodipine #History of CAD: on aspirin, statin and carvedilol DVT prophylaxis: SCDs; no anticoagulation in light of complaint of recurrent epistaxis with associated blood clots Code status: full code * Patient counseled extensively about different types of CODE STATUS including full code, DNR CCA and DNR CCA. Patient elects to be full code. * Total atcl-pm-adli time 16 minutes. Charges/Coding Visit Charges Inpatient E&M: 35397 Init Hosp L3 Procedures Hospitalists Procedures: 39762 Advncd Care Plan 30 Min
[2022-11-19] MEDS: 0.9% Saline Lock 10 ML Syringe IV (21:47)
[2022-11-19] MEDS: 0.9% Normal Saline 1,000 ML 125 ML IV (21:47)
[2022-11-20] VITALS (16 sets, daily range): BP systolic 108–137; BP diastolic 52–65; PULSE 63–94; RESP 16–20; TEMP 36.4–36.6; O2SAT 93–97
[2022-11-20] MEDS: 0.9% Normal Saline 1,000 ML 125 ML IV (05:43)
[2022-11-20 06:21] LABS: Hematocrit 27.8 % (40-54); Hemoglobin 9.6 g/dL (13.0-16.5); Mean Corp Hgb Conc 34.5 g/dL (32-36); Mean Corpuscular Volume 78.1 fL (80-94); Mean Platelet Vol. 8.8 fl (6.2-12.0); POSITIVE COUNT YES; POSITIVE DIFFERENTIAL YES; POSITIVE MORPHOLOGY YES; Platelet Count 230 K/mm3 (150-450); RBC Distribution Width CV 14.8 % (11.6-14.6); RBC Distribution Width SD 42.3 fl (35.1-43.9); Red Blood Count 3.56 M/mm3 (4.6-6.2); White Blood Count 3.2 K/mm3 (4.4-11.0)
[2022-11-20 06:38] LABS: Differential Indicated MANUAL DIFF
[2022-11-20 07:05] LABS: Anion Gap 8 (5-15); BUN 24 mg/dL (7-18); BUN/Creat Ratio 25.9 RATIO (10-20); Calcium,Total 8.5 mg/dL (8.5-10.1); Chloride 112 mmol/L (98-107); Creatinine, Serum 0.93 mg/dL (0.70-1.30); EST Glomerular Filtration Rate 86 mL/min (>60); Est Glom Filt Rate - Afr Amer 104 mL/min (>60); Estimated Creatinine Clearance 67.65 ml/min; Glucose 165 mg/dL (74-106); Potassium 3.6 mmol/L (3.5-5.1); Sodium Level 140 mmol/L (136-145)
[2022-11-20 07:11] LABS: Microcytosis 1+
[2022-11-20 07:13] LABS: Absolute Neutrophil Count 2.7 X10^3/uL (2.0-7.7); Platelet Estimate ADEQUATE (ADEQ); Red Cell Morphology NORM C+C NORMAL (NORM C&C)
[2022-11-20 07:14] LABS: Absolute Lymphocyte Count 0.26 X10^3/uL (0.83-4.51); Lymphocyte 8 % (19-41); Metamyelocyte 2 % (0-1); Monocyte 5 % (0-10); Myelocyte 2 % (0-0); Neutrophil-Band 6 % (0-5); Neutrophil-Segmented 77 % (47-70); Total Cells Counted 100 (MANUAL DIFF)
[2022-11-20] MEDS: Ceftriaxone 1 GM/50 ML BAG IV (09:02)
[2022-11-20] MEDS: Enoxaparin 40 MG/0.4 ML Syringe SC (09:05)
--- NOTE | 2022-11-20 09:07 | PN.HOSP_ITS ---
Subjective Subjective Follow-up for community-acquired pneumonia with complex history of lung cancer with possible metastasis to brain and kidney. Patient had radiation in the brain few months ago last year, 2021. Patient still short of breath. Chest tightness better. Objective Data Objective Data Vital Signs: Vital Signs Temp Pulse Resp BP Pulse Ox O2 Del Method O2 Flow Rate 97.9 F 81 18 132/65 H 96 Nasal Cannula 2 11/20/22 07:59 11/20/22 08:33 11/20/22 07:59 11/20/22 07:59 11/20/22 07:59 11/20/22 07:59 11/20/22 07:59 Oxygen Flow Rate (L/min) 2 Oxygen Delivery Method Nasal Cannula Weight: 190 lb 11.198 oz Body Mass Index (BMI) 30.7 Intake & Output: Intake and Output for Last 24 Hours 11/18/22 11/19/22 11/20/22 23:59 23:59 23:59 Intake Total Balance Lab / Micro Data Result Diagrams: 11/20/22 05:37 11/20/22 05:37 Labs: Laboratory Results - last 24 hr 11/19/22 16:58: WBC 3.8 L, RBC 3.80 L, Hgb 9.8 L, Hct 29.7 L, MCV 78.2 L, MCH 25.8 L, MCHC 33.0, RDW Std Deviation 41.7, RDW Coeff of Kailey 14.9 H, Plt Count 237, MPV 8.8, Neut % (Auto) Not Reportable, Absolute Neuts (auto) 3.1, Absolute Lymphs (auto) 0.50 L, Total Counted 100, Neutrophils % (Manual) 79 H, Band Neutrophils % 2, Lymphocytes % (Manual) 13 L, Monocytes % (Manual) 4, Metamyelocytes % 1, Myelocytes % 1 H, Diff Path Review March11/19/22 16:58: Sodium 136, Potassium 3.7, Chloride 107, Carbon Dioxide 20.0 L, Anion Gap 9, BUN 29 H, Creatinine 1.07, Estim Creat Clear Calc 58.80, Est GFR (MDRD) Af Amer 88, Est GFR (MDRD) Non-Af 73, BUN/Creatinine Ratio 27.1 H, Glucose 154 H, Calcium 8.8, Troponin I High Sens 5 11/19/22 16:58: B-Natriuretic Peptide 33.0 11/20/22 05:37: WBC 3.2 L, RBC 3.56 L, Hgb 9.6 L, Hct 27.8 L, MCV 78.1 L, MCH 27.0, MCHC 34.5, RDW Std Deviation 42.3, RDW Coeff of Kailey 14.8 H, Plt Count 230, MPV 8.8, Neut % (Auto) Not Reportable, Absolute Neuts (auto) 2.7, Absolute Lymphs (auto) 0.26 L, Total Counted 100, Neutrophils % (Manual) 77 H, Band Neutrophils % 6 H, Lymphocytes % (Manual) 8 L, Monocytes % (Manual) 5, [place] myelocytes % 2 H, Myelocytes % 2 H, Diff Path Review March, Platelet Estimate ADEQUATE, RBC Morphology NORM C+C, Microcytosis 1+ 11/20/22 05:37: Sodium 140, Potassium 3.6, Chloride 112 H, Carbon Dioxide 20.0 L , Anion Gap 8, BUN 24 H, Creatinine 0.93, Estim Creat Clear Calc 67.65, Est GFR (MDRD) Af Amer 104, Est GFR (MDRD) Non-Af 86, BUN/Creatinine Ratio 25.9 H, Glucose 165 H, Calcium 8.5 Micro: Microbiology 11/20/22 05:45 Urine, Clean Catch Legionella Antigen - Final 11/20/22 05:45 Urine, Clean Catch Streptococcus pneumoniae Antigen (M - Final 11/19/22 17:01 Nasal Secretion SARS-CoV-2 & FLU Antigen (Rapid) - Final Radiography Diagnostic Testing: Radiology Impression Chest X-Ray 11/19/22 17:10 IMPRESSION: Opacities in the lower lobes suspicious for pneumonia. Electronically Signed: Lesly Montilla MD at 17:51 EST Reading Location ID and State: [id number] / Tel , Service support , Physical Exam Narrative Patient admitted with shortness of breath for about 1 week along with associated cough, unable to expectorate. No fever chills nausea vomiting chest pain. As an outpatient patient on Levaquin and prednisone but symptoms did not get better therefore came to ED. Physical exam General: Alert, Oriented x3, Cooperative HEENT: Atraumatic, PERRLA, EOMI, Normocephalic Oral: Oral mucosa moist. No Gingival or Mucosal Lesions/ Ulcerations Neck: Supple, No JVD, Negative Carotid Bruits Lungs: Air entry diminished in all lung post. Bilateral expiratory rhonchi and wheezing. Tachypnea improved. On 2 L of oxygen Cardiovascular: Regular rate, Regular Rhythm, Normal S1, Normal S2, No murmurs Abdomen: Bowel Sounds Present, Soft, Non Tender, Non-Distended : No renal angle tenderness. No suprapubic tenderness. Extremities: No edema, Capillary Refill Less than 3 Seconds Skin: No rashes, No breakdown Musculoskeletal: No Tenderness to Palpation of Joints or Extremities Neurological: Cranial nerves II-XII grossly intact, DTR 2+/4 and Symmetrical, Neuro grossly intact Psych/Mental Status: Flat affect. Assessment & Plan Assessment/Plan (1) Pneumonia: (2) Hypoxia: PLAN: Plan 67-year-old gentleman admitted with shortness of breath, cough unable to expectorate with history of lung cancer status post right lower leg lobectomy #Hypoxia due to community acquired pneumonia * admit to med surg * C XR showed opacities in lower lobes suspicious for pneumonia * had been on levaquin on outpatient basis; took his levaquin dose today * on IV ceftriaxone and azithromycin * check urine for strep and legionella * IV solumedrol * titrate oxygen to maintain sats >90% * breathing treatment with bronchodilators * Incentive spirometry and Pep ordered. Mucinex DM. Respiratory panel ordered. Patient had COVID vaccination. Rapid antigen of COVID-19 and flu were negative. Labs shows normal WBC count but patient has bands 6%, metamyelocytes and myelocytes suggestive of left shift and severe infection. #Community acquired pneumonia: as above #History of right lower lobe lung cancer s/p lobectomy: Complicated history with possibility of delayed recovery. Does not follow medical donation professional. #History of left renal cancer with brain mets * follow up with oncology on outpatient basis * on dexamethasone #Recurrent epistaxis * says he has been having recurrent epistaxis, associated with blood clots. NOt having any nose bleed now * will monitor closely #Hyperlipidemia: on rosuvastatin #Hypertension; on carvedilol and amlodipine #History of CAD: on aspirin, statin and carvedilol DVT prophylaxis: SCDs; no anticoagulation in light of complaint of recurrent epistaxis with associated blood clots Code status: full code * Patient counseled extensively about different types of CODE STATUS including full code, DNR CCA and DNR CCA. Patient elects to be full code. Microbiology Past 72 Hours 11/20/22 05:45 Urine, Clean Catch Legionella Antigen - Final 11/20/22 05:45 Urine, Clean Catch Streptococcus pneumoniae Antigen (M - Final 11/19/22 17:01 Nasal Secretion SARS-CoV-2 & FLU Antigen (Rapid) - Final Laboratory Results 11/19/22 16:58: WBC 3.8 L, RBC 3.80 L, Hgb 9.8 L, Hct 29.7 L, MCV 78.2 L, MCH 25.8 L, MCHC 33.0, RDW Std Deviation 41.7, RDW Coeff of Kailey 14.9 H, Plt Count 237, MPV 8.8, Neut % (Auto) Not Reportable, Absolute Neuts (auto) 3.1, Absolute Lymphs (auto) 0.50 L, Total Counted 100, Neutrophils % (Manual) 79 H, Band Neutrophils % 2, Lymphocytes % (Manual) 13 L, Monocytes % (Manual) 4, Metamyelocytes % 1, Myelocytes % 1 H, Diff Path Review March11/19/22 16:58: Sodium 136, Potassium 3.7, Chloride 107, Carbon Dioxide 20.0 L, Anion Gap 9, BUN 29 H, Creatinine 1.07, Estim Creat Clear Calc 58.80, Est GFR (MDRD) Af Amer 88, Est GFR (MDRD) Non-Af 73, BUN/Creatinine Ratio 27.1 H, Glucose 154 H, Calcium 8.8, Troponin I High Sens 5 11/19/22 16:58: B-Natriuretic Peptide 33.0 11/20/22 05:37: WBC 3.2 L, RBC 3.56 L, Hgb 9.6 L, Hct 27.8 L, MCV 78.1 L, MCH 27.0, MCHC 34.5, RDW Std Deviation 42.3, RDW Coeff of Kailey 14.8 H, Plt Count 230, MPV 8.8, Neut % (Auto) Not Reportable, Absolute Neuts (auto) 2.7, Absolute Lymphs (auto) 0.26 L, Total Counted 100, Neutrophils % (Manual) 77 H, Band Neutrophils % 6 H, Lymphocytes % (Manual) 8 L, Monocytes % (Manual) 5, Metamyelocytes % 2 H, Myelocytes % 2 H, Diff Path Review March, Platelet Estimate ADEQUATE, RBC Morphology NORM C+C, Microcytosis 1+ 11/20/22 05:37: Sodium 140, Potassium 3.6, Chloride 112 H, Carbon Dioxide 20.0 L , Anion Gap 8, BUN 24 H, Creatinine 0.93, Estim Creat Clear Calc 67.65, Est GFR (MDRD) Af Amer 104, Est GFR (MDRD) Non-Af 86, BUN/Creatinine Ratio 25.9 H, Glucose 165 H, Calcium 8.5 Charges/Coding Visit Charges Inpatient E&M: 48057 Subs Hosp L2
--- NOTE | 2022-11-20 09:15 | CASEMGMT ---
LUPE GAR Assessment: Face to Face with pt for initial transition planning/care coordination assessment. RN RIN introduced self and role at [facility], pt voices understanding and consents to assessment. Pt is A/O x4 and answers all questions appropriately at this time. Pt sitting up in bed with oxygen on in no distress. Care providers, pharmacy, and demographics verified/updated. Admitting Dx: hypoxia d/t cap PCP:Dick Specialists:Michael, onc; Mauricio, radiation doctor in [place]; Jaime, cardio Preferred Pharmacy: [facility] Prescription Benefit: yes LNOK: Karen Arshad, Living Arrangements: Pt lives with in a bilevel home with no steps to enter. Pt reports he is I in ADL's and denies concerns at home. Transportation: Pt drives self and denies concerns with transportation. DME/HHC/SNF: Pt has a pox, cane, walker and BP cuff at home. Pt does not use AD. Pt denies hx of HHC or SNF stays. Pt states no concerns with going home at time of dc. Provided pt with a verbal local in network list of DME companies should pt need oxygen upon dc. Discussed homegoing oxygen process as well. Pt chose [employer]. Pt states no further concerns/needs. CM to follow. Advised pt to ask CM if any further question/concerns/needs arise, voices understanding. Pt Goal: Home Plan: Home, follow for oxygen.
[2022-11-20] MEDS: Aspirin E.C. 81 MG Tablet PO (15:26)
[2022-11-20] MEDS: Ipratropium/Albuterol Sulfate 3 ML AMPUL.NEB INHALATION (16:10)
[2022-11-20] MEDS: Rosuvastatin 20 MG Tablet 40 MG PO (23:58)
[2022-11-20] MEDS: guaiFENesin/D-Methorphan TAB.SR.12H 2 TABLET PO (23:58)
[2022-11-20] MEDS: hydrALAZINE 50 MG Tablet PO (23:59)
[2022-11-20] MEDS: Carvedilol 25 MG Tablet PO (23:59)
[2022-11-21] VITALS (7 sets, daily range): BP systolic 123–130; BP diastolic 63–80; PULSE 81–98; RESP 16–22; TEMP 36.5–37.4; O2SAT 91–97
[2022-11-21] MEDS: 0.9% Saline Lock 10 ML Syringe IV ×3 (07:05→14:57)
[2022-11-21] MEDS: Ipratropium/Albuterol Sulfate 3 ML AMPUL.NEB INHALATION ×2 (08:15→14:17)
[2022-11-21] MEDS: Ceftriaxone 1 GM/50 ML BAG IV (10:53)
[2022-11-21] MEDS: Enoxaparin 40 MG/0.4 ML Syringe SC (10:56)
[2022-11-21] MEDS: Pantoprazole Sodium 40 MG Tablet PO (10:58)
[2022-11-21] MEDS: guaiFENesin/D-Methorphan TAB.SR.12H 2 TABLET PO (10:58)
[2022-11-21] MEDS: Carvedilol 25 MG Tablet PO (10:59)
[2022-11-21] MEDS: Aspirin E.C. 81 MG Tablet PO (10:59)
[2022-11-21] MEDS: amLODIPine 10 MG Tablet PO (10:59)
--- NOTE | 2022-11-21 11:23 | DCINST_ITS ---
Discharge Instructions Diet Discharge Diet: No restrictions Activity Discharge Activity: Return to Normal Activity Weight Bearing Status: Weight bearing as tolerated Dressing / Incision Call your doctor if you observe: Fever of 101 or Higher, Coldness, Increased Pain, Numbness or Tingling, Change in Color, Inability to urinate, Inability to have a bowel movement, Shortness of breath, Dizziness, Fainting spells, Swelling in the ankles, Chest pain, Prolonged hiccupping, Increased palpitations (irregular heartbeat) and Calf discomfort Follow Up Care When: IN 2 WEEKS Test Results: Test results from this visit will be discussed in further detail at your follow- up appointment, if applicable. Discharge Plan Admission Admit Date/Time: 11/19/22 20:35 Primary Reason for Your Visit: Committee acquired pneumonia Attending Provider: Emmanuel Kaiser Primary Care Provider: Jacob Jennings Consulting Providers: Amber Cat Discharge Orders/Prescriptions Prescriptions: New Mucinex DM 30-600 mg Tablet Extended Release 12 Hr 2 tab PO BID 7 Days Qty: 14 0RF cefdinir 300 mg capsule 300 mg PO BID Qty: 10 0RF prednisone 20 mg tablet 40 mg PO DAILY Qty: 10 0RF Continued carvedilol 25 mg tablet 25 mg PO BID Rx Instructions: must administer with a meal/food albuterol sulfate 90 mcg/actuation HFA aerosol inhaler 1 puff inhalation Q6H PRN (Reason: SOB) tizanidine 4 mg tablet 4 mg PO TID PRN (Reason: Atrial Fibrillation) triamcinolone acetonide 0.1 % cream 1 applic topical BID lidocaine-prilocaine 2.5-2.5 % cream 1 applic topical ONCE PRN (Reason: Port access ) 30 Days Qty: 30 2RF calcium carbonate [Calcium 500] 500 mg calcium (1,250 mg) tablet,chewable 500 mg PO DAILY aspirin 81 MG tablet 81 mg PO DAILY rosuvastatin [Crestor] 40 MG tablet 40 mg PO DAILY amlodipine 10 mg tablet 10 mg PO DAILY hydralazine 50 mg tablet 50 mg PO BID Changed esomeprazole magnesium [Nexium] 20 mg capsule,delayed release(DR/EC) 20 mg PO DAILY Qty: 30 0RF Held prednisone 20 mg tablet 20 mg PO DAILY Hold Instructions: Hold it while patient is taking burst therapy of prednisone. Discontinued levofloxacin 500 mg tablet 500 mg PO DAILY Referrals / Follow Up: Benito Malcolm DO [Med Staff - Active Staff] - 11/24/22 9:15 am Jacob Jennings DO [Primary Care Provider] - Disposition Disposition (needs filled in before D/C Order can be placed): Home, Self Care
[2022-11-21 11:41] LABS: Pathologist Review Reviewed
[2022-11-21 11:47] LABS: Pathologist Review Reviewed
--- NOTE | 2022-11-21 11:59 | PCM.PN.HOSP ---
Objective Data Objective Data Vital Signs: Vital Signs Temp Pulse Resp BP Pulse Ox O2 Del Method O2 Flow Rate 99.4 F H 98 20 H 127/69 H 95 Room Air 2 11/21/22 09:00 11/21/22 09:00 11/21/22 09:00 11/21/22 09:00 11/21/22 09:00 11/21/22 09:00 11/21/22 08:15 Oxygen Flow Rate (L/min) 2 Oxygen Delivery Method Room Air Weight: 190 lb 11.198 oz Body Mass Index (BMI) 30.7 Intake & Output: Intake and Output for Last 24 Hours 11/19/22 11/20/22 11/21/22 23:59 23:59 23:59 Intake Total 4296.67 / 4296.67 50 / 50 Balance 4296.67 / 4296.67 50 / 50 Lab / Micro Data Result Diagrams: 11/20/22 05:37 11/20/22 05:37 Labs: Laboratory Results - last 24 hr 11/19/22 16:58: Diff Path Review Reviewed 11/20/22 05:37: Diff Path Review Reviewed Micro: Microbiology 11/20/22 09:45 Sputum, Expectorated/Coughed Gram Stain - Final 11/20/22 09:45 Sputum, Expectorated/Coughed Respiratory Culture - Preliminary Appears to be normal respiratory laure. Further studies to follow. 11/20/22 14:00 Mucosa - Nose Respiratory Panel (PCR) - Final 11/20/22 05:45 Urine, Clean Catch Legionella Antigen - Final 11/20/22 05:45 Urine, Clean Catch Streptococcus pneumoniae Antigen (M - Final 11/19/22 17:01 Nasal Secretion SARS-CoV-2 & FLU Antigen (Rapid) - Final Physical Exam Narrative Patient admitted with shortness of breath for about 1 week along with associated cough, unable to expectorate. No fever chills nausea vomiting chest pain. As an outpatient patient on Levaquin and prednisone but symptoms did not get better therefore came to ED. Physical exam General: Alert, Oriented x3, Cooperative HEENT: Atraumatic, PERRLA, EOMI, Normocephalic Oral: Oral mucosa moist. No Gingival or Mucosal Lesions/ Ulcerations Neck: Supple, No JVD, Negative Carotid Bruits Lungs: Air entry diminished in all lung post. Bilateral expiratory rhonchi and wheezing. Tachypnea improved. On 2 L of oxygen Cardiovascular: Regular rate, Regular Rhythm, Normal S1, Normal S2, No murmurs Abdomen: Bowel Sounds Present, Soft, Non Tender, Non-Distended : No renal angle tenderness. No suprapubic tenderness. Extremities: No edema, Capillary Refill Less than 3 Seconds Skin: No rashes, No breakdown Musculoskeletal: No Tenderness to Palpation of Joints or Extremities Neurological: Cranial nerves II-XII grossly intact, DTR 2+/4 and Symmetrical, Neuro grossly intact Psych/Mental Status: Flat affect. Assessment & Plan Assessment/Plan (1) Pneumonia: (2) Hypoxia: PLAN: Plan 67-year-old gentleman admitted with shortness of breath, cough unable to expectorate with history of lung cancer status post right lower leg lobectomy #Hypoxia due to community acquired pneumonia admit to med surg C XR showed opacities in lower lobes suspicious for pneumonia had been on levaquin on outpatient basis; took his levaquin dose today on IV ceftriaxone and azithromycin check urine for strep and legionella IV solumedrol titrate oxygen to maintain sats >90% breathing treatment with bronchodilators Incentive spirometry and Pep ordered. Mucinex DM. Respiratory panel ordered. Patient had COVID vaccination. Rapid antigen of COVID-19 and flu were negative. Labs shows normal WBC count but patient has bands 6%, metamyelocytes and myelocytes suggestive of left shift and severe infection. #Community acquired pneumonia: as above #History of right lower lobe lung cancer s/p lobectomy: Complicated history with possibility of delayed recovery. 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 #History of left renal cancer with brain mets follow up with oncology on outpatient basis on dexamethasone #Recurrent epistaxis says he has been having recurrent epistaxis, associated with blood clots. NOt having any nose bleed now will monitor closely #Hyperlipidemia: on rosuvastatin #Hypertension; on carvedilol and amlodipine #History of CAD: on aspirin, statin and carvedilol DVT prophylaxis: SCDs; no anticoagulation in light of complaint of recurrent epistaxis with associated blood clots Code status: full code Patient counseled extensively about different types of CODE STATUS including full code, DNR CCA and DNR CCA. Patient elects to be full code. Microbiology Past 72 Hours 11/20/22 05:45 Urine, Clean Catch Legionella Antigen - Final 11/20/22 05:45 Urine, Clean Catch Streptococcus pneumoniae Antigen (M - Final 11/19/22 17:01 Nasal Secretion SARS-CoV-2 & FLU Antigen (Rapid) - Final Laboratory Results 11/19/22 16:58: WBC 3.8 L, RBC 3.80 L, Hgb 9.8 L, Hct 29.7 L, MCV 78.2 L, MCH 25.8 L, MCHC 33.0, RDW Std Deviation 41.7, RDW Coeff of Kailey 14.9 H, Plt Count 237, MPV 8.8, Neut % (Auto) Not Reportable, Absolute Neuts (auto) 3.1, Absolute Lymphs (auto) 0.50 L, Total Counted 100, Neutrophils % (Manual) 79 H, Band Neutrophils % 2, Lymphocytes % (Manual) 13 L, Monocytes % (Manual) 4, Metamyelocytes % 1, Myelocytes % 1 H, Diff Path Review March [facility] 11/19/22 16:58: Sodium 136, Potassium 3.7, Chloride 107, Carbon Dioxide 20.0 L, Anion Gap 9, BUN 29 H, Creatinine 1.07, Estim Creat Clear Calc 58.80, Est GFR (MDRD) Af Amer 88, Est GFR (MDRD) Non-Af 73, BUN/Creatinine Ratio 27.1 H, Glucose 154 H, Calcium 8.8, Troponin I High Sens 5 11/19/22 16:58: B-Natriuretic Peptide 33.0 11/20/22 05:37: WBC 3.2 L, RBC 3.56 L, Hgb 9.6 L, Hct 27.8 L, MCV 78.1 L, MCH 27.0, MCHC 34.5, RDW Std Deviation 42.3, RDW Coeff of Kailey 14.8 H, Plt Count 230, MPV 8.8, Neut % (Auto) Not Reportable, Absolute Neuts (auto) 2.7, Absolute Lymphs (auto) 0.26 L, Total Counted 100, Neutrophils % (Manual) 77 H, Band Neutrophils % 6 H, Lymphocytes % (Manual) 8 L, Monocytes % (Manual) 5, Metamyelocytes % 2 H, Myelocytes % 2 H, Diff Path Review March, Platelet Estimate ADEQUATE, RBC Morphology NORM C+C, Microcytosis 1+ 11/20/22 05:37: Sodium 140, Potassium 3.6, Chloride 112 H, Carbon Dioxide 20.0 L, Anion Gap 8, BUN 24 H, Creatinine 0.93, Estim Creat Clear Calc 67.65, Est GFR (MDRD) Af Amer 104, Est GFR (MDRD) Non-Af 86, BUN/Creatinine Ratio 25.9 H, Glucose 165 H, Calcium 8.5
--- NOTE | 2022-11-21 12:42 | CASEMGMT ---
Pt does not qualify for home oxygen.
--- NOTE | 2022-11-21 14:40 | DS.PCM_ITS ---
Providers Date of Admission: 11/19/22 Date of Discharge: 11/21/22 Primary Care Physician: Dr. Jacob Jennings, Reason For Visit: HYPOXIA DUE TO COMMUNITY ACQURIE PNEUMONIA Diagnosis Discharge Diagnosis (1) Pneumonia: Status: Acute Code(s): J18.9 - Pneumonia, unspecified organism (2) Hypoxia: Status: Acute Code(s): R09.02 - Hypoxemia Plan 67-year-old gentleman admitted with shortness of breath, cough unable to ex pectorate with history of lung cancer status post right lower leg lobectomy #Hypoxia due to community acquired pneumonia * admit to med surg * C XR showed opacities in lower lobes suspicious for pneumonia * had been on levaquin on outpatient basis; took his levaquin dose today * on IV ceftriaxone and azithromycin * check urine for strep and legionella * IV solumedrol * titrate oxygen to maintain sats >90% * breathing treatment with bronchodilators * Incentive spirometry and Pep ordered.? Mucinex DM.? Respiratory panel ordered.? Patient had COVID vaccination.? Rapid antigen of COVID-19 and flu were negative.? Labs shows normal WBC count but patient has bands 6%, metamyelocytes and myelocytes suggestive? of left shift and severe infection. Peripheral blood smear suggestive of leukopenia and microcytic anemia. 11/21: Patient shortness of breath is resolved. Patient walked around the nursing station and his oxygenation did not drop. Feels very comfortable. No dyspnea on exertion. Patient is discharged on cefdinir for 5 more days to complete a total of 8 days. Patient had Levaquin before coming here. Patient has DuoNeb nebulization machine at home. Prednisone 40 mg daily for 5 days burst therapy and then can resume baseline prednisone. Appointment was made with Dr. Malcolm to follow-up in office. Sputum culture shows normal respiratory laure. Respiratory panel negative. Urinary antigens were negative. #Community acquired pneumonia: as above #History of right lower lobe lung cancer s/p lobectomy: Complicated history with possibility of delayed recovery.? 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 #History of left renal cancer with brain mets * follow up with oncology on outpatient basis * on dexamethasone #Recurrent epistaxis * says he has been having recurrent epistaxis, associated with blood clots. NOt having any nose bleed now * will monitor closely #Hyperlipidemia: on rosuvastatin #Hypertension; on carvedilol and amlodipine #History of CAD: on aspirin, statin and carvedilol DVT prophylaxis: SCDs; no anticoagulation in light of complaint of recurrent epistaxis with associated blood clots Code status: full code * Patient counseled extensively about different types of CODE STATUS including full code, DNR CCA and DNR CCA.? Patient elects to be? full code. Discharge medication reconciliation done. Discharge follow-up instructions completed. Discharge process discussed with the patient and all questions were answered to patient's satisfaction. Total time spent, exact 35 minutes on discharge meds reconciliation, examination, coordination of care with nurses and ancillary staff, review of imaging and blood test and discussion with the patient on follow-up instructions. Medications at Discharge Home Medications aspirin 81 mg tablet,delayed release 81 mg PO DAILY HEART HEALTH 08/18/18 rosuvastatin 40 mg tablet (Crestor) 40 mg PO DAILY CHOLESTEROL 08/18/18 carvedilol 25 mg tablet 25 mg PO BID blood pressure 04/30/21 albuterol sulfate 90 mcg/actuation aerosol inhaler 1 puff inhalation Q6H PRN SOB 05/31/21 hydralazine 50 mg tablet 50 mg PO BID diuretic 05/31/21 tizanidine 4 mg tablet 4 mg PO TID PRN Atrial Fibrillation 11/19/21 triamcinolone acetonide 0.1 % topical cream 1 applic topical BID Check with primary doctor 12/17/21 lidocaine-prilocaine 2.5 %-2.5 % topical cream 1 applic topical ONCE PRN Port access 30 days #30 grams 01/28/22 calcium carbonate 500 mg calcium (1,250 mg) chewable tablet (Calcium 500) 500 mg PO DAILY Check with primary doctor 04/01/22 amlodipine 10 mg tablet 10 mg PO DAILY Check with primary doctor 11/19/22 prednisone 20 mg tablet 20 mg PO DAILY steroid 11/19/22 cefdinir 300 mg capsule 300 mg PO BID #10 caps 11/21/22 dextromethorphan-guaifenesin 30 mg-600 mg tablet extended [id number] hr (Mucinex DM) 2 tab PO BID 7 days #14 tabs 11/21/22 esomeprazole magnesium 20 mg capsule,delayed release (Nexium) 20 mg PO DAILY #30 caps 11/21/22 prednisone 20 mg tablet 40 mg PO DAILY #10 tabs 11/21/22 Physical Exam Narrative Seen and examined on the day of discharge. Shortness of breath is resolved. Patient feels comfortable and wants to go home. Physical exam: General: Alert, Oriented x3, Cooperative HEENT: Atraumatic, PERRLA, EOMI, Normocephalic Oral: Oral mucosa moist.? No Gingival or Mucosal Lesions/ Ulcerations Neck: Supple, No JVD, Negative Carotid Bruits Lungs: Air entry improved in all lung post except right lung base. No crepitation/rhonchi or wheezing.? Tachypnea and hypoxia resolved. Cardiovascular: Regular rate, Regular Rhythm, Normal S1, Normal S2, No murmurs Abdomen: Bowel Sounds Present, Soft, Non Tender, Non-Distended : No renal angle tenderness.? No suprapubic tenderness. Extremities: No edema, Capillary Refill Less than 3 Seconds Skin: No rashes, No breakdown Musculoskeletal: No Tenderness to Palpation of Joints or Extremities Neurological: Cranial nerves II-XII grossly intact, DTR? 2+/4 and Symmetrical, Neuro grossly intact Psych/Mental Status: Flat affect. Weight / BMI Weight Weight: 190 lb 11.198 oz Body Mass Index (BMI) 30.7 ABG / Lab / Microbiology Data Result Diagrams: 11/20/22 05:37 11/20/22 05:37 Laboratory: Laboratory Results - last 24 hr 11/19/22 16:58: Diff Path Review Reviewed 11/20/22 05:37: Diff Path Review Reviewed Microbiology: Microbiology 11/20/22 09:45 Sputum, Expectorated/Coughed Gram Stain - Final 11/20/22 09:45 Sputum, Expectorated/Coughed Respiratory Culture - Preliminary Appears to be normal respiratory laure. Further studies to follow. 11/20/22 14:00 Mucosa - Nose Respiratory Panel (PCR) - Final 11/20/22 05:45 Urine, Clean Catch Legionella Antigen - Final 11/20/22 05:45 Urine, Clean Catch Streptococcus pneumoniae Antigen (M - Final 11/19/22 17:01 Nasal Secretion SARS-CoV-2 & FLU Antigen (Rapid) - Final D/C Instructions Discharge Diet: No restrictions Weight Bearing Status: Weight bearing as tolerated Call your doctor if you observe: Fever of 101 or Higher, Coldness, Increased Pain, Numbness or Tingling, Change in Color, Inability to urinate, Inability to have a bowel movement, Shortness of breath, Dizziness, Fainting spells, Swelling in the ankles, Chest pain, Prolonged hiccupping, Increased palpitations (irregular heartbeat) and Calf discomfort When: IN 2 WEEKS Meaningful Use Info Meaningful Use Diagnoses (Choose all that apply): None applicable Discharge Plan Admission Admit Date/Time: 11/19/22 20:35 Primary Reason for Your Visit: Committee acquired pneumonia Attending Provider: Emmanuel Kaiser Primary Care Provider: Jacbo Jennings Consulting Providers: Amber Cat Discharge Orders/Prescriptions Prescriptions: New Mucinex DM 30-600 mg Tablet Extended Release 12 Hr 2 tab PO BID 7 Days Qty: 14 0RF cefdinir 300 mg capsule 300 mg PO BID Qty: 10 0RF prednisone 20 mg tablet 40 mg PO DAILY Qty: 10 0RF Continued carvedilol 25 mg tablet 25 mg PO BID Rx Instructions: must administer with a meal/food albuterol sulfate 90 mcg/actuation HFA aerosol inhaler 1 puff inhalation Q6H PRN (Reason: SOB) tizanidine 4 mg tablet 4 mg PO TID PRN (Reason: Atrial Fibrillation) triamcinolone acetonide 0.1 % cream 1 applic topical BID lidocaine-prilocaine 2.5-2.5 % cream 1 applic topical ONCE PRN (Reason: Port access ) 30 Days Qty: 30 2RF calcium carbonate [Calcium 500] 500 mg calcium (1,250 mg) tablet,chewable 500 mg PO DAILY aspirin 81 MG tablet 81 mg PO DAILY rosuvastatin [Crestor] 40 MG tablet 40 mg PO DAILY amlodipine 10 mg tablet 10 mg PO DAILY hydralazine 50 mg tablet 50 mg PO BID Changed esomeprazole magnesium [Nexium] 20 mg capsule,delayed release(DR/EC) 20 mg PO DAILY Qty: 30 0RF Held prednisone 20 mg tablet 20 mg PO DAILY Hold Instructions: Hold it while patient is taking burst therapy of prednisone. Discontinued levofloxacin 500 mg tablet 500 mg PO DAILY Referrals / Follow Up: Benito Malcolm DO [Med Staff - Active Staff] - 11/24/22 9:15 am Jacob Jennings DO [Primary Care Provider] - Disposition Disposition (needs filled in before D/C Order can be placed): Home, Self Care Charges/Coding Visit Charges Inpatient E&M: 73265 Disch Hosp >30min
== END 2022-11-21 15:00 | disposition home or self-care (01) | DRG 194 ==
LOC: ED 20:28 → MS3 20:54
PROVIDERS: Admitting Provider Student in an Organized Health Care Education/Training Program; Emergency Provider Emergency Medicine; PCP Family Medicine; Visit Provider Internal Medicine
DX: J18.9 Pneumonia, unspecified organism (principal); J44.0 Chronic obstructive pulmonary disease with (acute) lower respiratory infection; C79.31 Secondary malignant neoplasm of brain; D63.0 Anemia in neoplastic disease; I10 Essential (primary) hypertension; E78.5 Hyperlipidemia, unspecified; I25.10 Atherosclerotic heart disease of native coronary artery without angina pectoris; R09.02 Hypoxemia; Z90.5 Acquired absence of kidney; Z95.5 Presence of coronary angioplasty implant and graft; Z79.82 Long term (current) use of aspirin; Z79.899 Other long term (current) drug therapy; Z85.118 Personal history of other malignant neoplasm of bronchus and lung; Z85.53 Personal history of malignant neoplasm of renal pelvis; Z92.3 Personal history of irradiation; Z86.16 Personal history of COVID-19; Z87.891 Personal history of nicotine dependence
CPT/HCPCS: 36415; 36591; 71046; 80048; 83880; 84484; 85025; 87070; 87205; 87428; 87449; 87633; 93005; 94640; 94667; 94668; 99252; 99285; J7030; J7050; A4216; G0463

== ENCOUNTER 2022-12-16 13:23 | Outpatient (CLI) | payer MEDICARE, OTHER, SELFPAY ==
--- NOTE | 2022-12-16 13:26 | MRI_ITS ---
EXAM: MR HEAD WITHOUT AND WITH INTRAVENOUS CONTRAST CLINICAL INDICATION: Headache, dizziness and fall injury. History of brain metastases. TECHNIQUE: Multiplanar and multisequence MR images of the brain were obtained without and with intravenous contrast. This report was created using [employer] report generation technology. CONTRAST: 18 mL of IV Clariscan. COMPARISON: MRI brain with and without contrast 10/14/2022. FINDINGS: BRAIN AND EXTRA-AXIAL SPACES: Increased size of enhancing mass in the left posterior parietal lobe measuring 1.9 x 1.6 cm, previously 1.4 x 1.2 cm. The extensive vasogenic edema surrounding the left posterior parietal lobe mass is unchanged. No intra- or extra-axial hemorrhage. No evidence of acute infarct. There is preservation of the love/white matter interface. Posterior fossa structures are unremarkable. Basal cisterns are patent. No new enhancing metastatic mass. SELLA: Unremarkable. Normal sella turcica, pituitary gland, infundibular stalk, optic chiasm and hypothalamus. AUDITORY SYSTEM: Unremarkable. The internal auditory canals are patent. BONES/JOINTS: Unremarkable. No discrete lytic or blastic abnormalities. SINUSES: Mucosal edema in the central sphenoid sinus and right posterior ethmoid sinus. Decreased mucosal edema of the ethmoid sinus. MASTOID AIR CELLS: Unremarkable as visualized. Clear. ORBITS: Unremarkable as visualized. Both globes, extraocular muscles, optic nerves and retrobulbar fat appear unremarkable. VASCULATURE: Unremarkable as visualized. Normal flow voids in the major intracranial circulation. MRI/Brain W/WO Contrast IMPRESSION: 1. No MRI evidence of acute or subacute ischemic infarct or new brain metastatic disease. 2. Mild increase in size of enhancing metastatic mass in the left posterior parietal lobe measuring 1.2 x 1.6 cm, previously 1.4 x 1.2 cm. No obvious significant change of the vasogenic edema surrounding the enhancing metastatic mass in the left posterior parietal lobe. 3. Mild improvement of mucosal edema in the ethmoid sinuses. Electronically Signed: Mahesh Devine MD at 15:10 EST ,
[2022-12-16] MEDS: 0.9 % NaCl (Sterile) Posiflush 10 mL IV (14:27)
== END 2022-12-16 23:59 | disposition home or self-care (01) ==
LOC: MRI 13:26
PROVIDERS: PCP Family Medicine; Visit Provider Nurse Practitioner Family
DX: C79.31 Secondary malignant neoplasm of brain (principal); C79.72 Secondary malignant neoplasm of left adrenal gland; C34.31 Malignant neoplasm of lower lobe, right bronchus or lung; C77.9 Secondary and unspecified malignant neoplasm of lymph node, unspecified; C64.1 Malignant neoplasm of right kidney, except renal pelvis; Z51.11 Encounter for antineoplastic chemotherapy; D64.81 Anemia due to antineoplastic chemotherapy; R26.89 Other abnormalities of gait and mobility; Z79.899 Other long term (current) drug therapy
CPT/HCPCS: 36415; 36593; 70553; 80053; 82533; 82728; 83540; 83550; 84100; 84439; 84443; 85025; 96413; A9575; J2997; J7050; A4216; J9271

== ENCOUNTER → 2022-12-25 | Outpatient (CLI) | payer MEDICARE, OTHER, SELFPAY ==
--- NOTE | 2022-12-25 13:23 | PFTCOMP ---
COMPLETE PULMONARY FUNCTION TEST INTERPRETATION Brief HPI: Patient is a 67-year-old male, currently under the care of Dr. Malcolm, who presents to [facility] for complete pulmonary function tests secondary to diagnosis of dyspnea. Respiratory therapist reports good effort and reproducible results. Interpretation: Forced expiration spirometry shows a mild large airways obstructive ventilatory defect with an FEV1 of 90% predicted. There is no significant bronchodilator response by strict ATS criteria. Spirograms are of good quality and plateau slowly, indicating slowly emptying areas of the lungs. The respiratory flow volume loop shows decreased expiratory flow rates at all lung volumes consistent with airway obstruction. Lung volumes by body plethysmography show a normal total lung capacity at 5.89 L, 108% predicted. All other lung volumes are within normal limits. Diffusion capacity by carbon monoxide is normal at 85% predicted. The airway resistance is normal. No previous pulmonary function tests were available for review. Impression: Irreversible mild large airways obstructive ventilatory defect with preserved lung volumes and diffusion capacity
== END | disposition home or self-care (01) ==
LOC: PSN 07:54
PROVIDERS: PCP Family Medicine; Referring Provider Internal Medicine Critical Care Medicine; Visit Provider Internal Medicine Critical Care Medicine
DX: R06.02 Shortness of breath (principal); F17.211 Nicotine dependence, cigarettes, in remission
CPT/HCPCS: 94060; 94726; 94729

== ENCOUNTER → 2022-12-29 | Outpatient (CLI) | payer MEDICARE, OTHER, SELFPAY ==
--- NOTE | 2022-12-29 12:03 | CT_ITS ---
STUDY: CT CHEST, ABDOMEN T PELVIS WITHOUT CONTRAST REASON FOR EXAM: Male, 67 years old. Known renal cell carcinoma, restaging RADIATION DOSAGE (If Supplied By Facility): CTDIvol = ( 18.52 ) mGy, DLP = ( 1531.52 ) mGycm TECHNIQUE: Transaxial imaging was performed without the administration of intravenous contrast material. Multiplanar coronal and sagittal images were reformatted. Individualized dose optimization techniques were used for this CT. COMPARISON: 09/08/2022, 03/04/2022 FINDINGS: CHEST Lungs are mildly hyperexpanded, with chronic interstitial changes and nonspecific pleural thickening in both hemithoraces. There is no suspicious noncalcified mass or nodule, organized infiltrate or effusion. Thyroid gland is unremarkable. Normal heart and pericardium. There are calcifications of the coronary arteries. No suspicious axillary, mediastinal, or perihilar lymph nodes. . Normal unenhanced pulmonary arteries. Peripheral calcifications in the thoracic aorta without aneurysm. Bony structures show mild degenerative changes. ABDOMEN Liver is unremarkable aside from a simple cyst in the left lobe. Normal gallbladder and extrahepatic biliary system. Normal spleen. Normal pancreas. Normal bilateral adrenal glands. There has been a previous left nephrectomy. No suspicious soft tissue mass or adenopathy in the left nephrectomy bed. Right kidney shows a stable concerning 3.95 x 3.71 cm mass in the lower pole. 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 Normal visualized stomach. Normal small intestine. Normal colon. The appendix is visualized and appears normal. Appendix seen on coronal recon images 50 through 60 There is diffuse atherosclerotic calcification of the abdominal aorta with elongation and tortuosity, but without a demonstrated aneurysm. Normal inferior vena cava. Scattered subcentimeter in short axis dimension unchanged mesenteric and retroperitoneal lymph nodes. Stable left-sided spigelian hernia. Bony structures show degenerative change PELVIS Normal urinary bladder. There is no pelvic fluid. There is no pelvic lymphadenopathy or mass lesion. Normal visualized pelvic arteries. Fat-containing right inguinal hernia. There are diffuse degenerative changes of the visualized lumbar spine, and pelvis. CT/CT Chest, Abd, Pelvis WO Cont IMPRESSION: There is a persistent suspicious solid mass in the lower pole of the right kidney measuring 3.95 x 3.71 cm which is anything is slightly increased in size since the previous study from August. 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 Stable simple hepatic cyst, no specific follow-up needed. Chronic interstitial changes in both lung post without a superimposed acute pulmonary process Degenerative bony changes Stable-appearing left spigelian hernia Electronically Signed: Ilan Iraheta MD at 15:56 EST ,
[2022-12-29 12:30] VITALS: PULSE 102; PULSE 103; PULSE 107; PULSE 95; PULSE 96; PULSE 98; PULSE 99; O2SAT 95; O2SAT 96; O2SAT 97
--- NOTE | 2022-12-30 07:12 | WT_ITS ---
PSN 6 Minute Walk Test 6 Minute Walk Test 6 Minute Walk Test: 6 Minute Walk Test PSN:6-Minute Walk Test Start: 12/29/22 12:30 Freq: Status: Active Protocol: [id number] Document 12/29/22 12:30 [facility] (Rec: 12/29/22 12:33 [facility] [id number]) 6 Minute Walk Test Date Performed 12/29/22 Time Performed 12:15 Height 5 ft 5.5 in Weight: 195 lb Weight in Pounds 195.[address]: Benito Malcolm Assistive device used: None Pre-test Oxygen Delivery Method Room Air Pulse Ox (%) 97 Pulse Rate (60-100 beats/min) 95 Dyspnea Chaz Scale (0-10) 2 1st minute Oxygen Delivery Method Room Air Pulse Ox (%) 97 Pulse Rate (60-100 beats/min) 98 Dyspnea Chaz Scale (0-10) 2 Number of Rests Taken 0 2nd minute Oxygen Delivery Method Room Air Pulse Ox (%) 97 Pulse Rate (60-100 beats/min) 99 Dyspnea Chaz Scale (0-10) 2 Number of Rests Taken 0 3rd minute Oxygen Delivery Method Room Air Pulse Ox (%) 96 Pulse Rate (60-100 beats/min) 102 H Dyspnea Chaz Scale (0-10) 3 Number of Rests Taken 0 Reported Symptoms Increased Work of Breathing 4th minute Oxygen Delivery Method Room Air Pulse Ox (%) 96 Pulse Rate (60-100 beats/min) 103 H Dyspnea Chaz Scale (0-10) 3 Number of Rests Taken 0 Reported Symptoms Increased Work of Breathing 5th minute Oxygen Delivery Method Room Air Pulse Ox (%) 96 Pulse Rate (60-100 beats/min) 103 H Dyspnea Chaz Scale (0-10) 3 Number of Rests Taken 0 Reported Symptoms Increased Work of Breathing 6th minute Oxygen Delivery Method Room Air Pulse Ox (%) 95 Pulse Rate (60-100 beats/min) 107 H Dyspnea Chaz Scale (0-10) 3 Number of Rests Taken 0 Reported Symptoms Increased Work of Breathing Post-test Oxygen Delivery Method Room Air Pulse Ox (%) 96 Pulse Rate (60-100 beats/min) 96 Dyspnea Chaz Scale (0-10) 2 Full Laps Walked 18 Partial Lap, Number of Tiles Walked 39 Total Distance Walked (ft) 1101 Interpretation Interpretation: The patient ambulated 1101 feet over the course of 6 minutes beginning on room air without assistive devices. Pretesting oxygen saturation was noted to be 97% on room air. With ambulation, the shayla oxygen saturation was 95%. There was no significant exertional oxygen desaturation. Recommendations Recommendations: There is no indication for the use of supplemental oxygen at this time.
== END | disposition home or self-care (01) ==
LOC: PSN 12:03
PROVIDERS: PCP Family Medicine; Visit Provider Internal Medicine Critical Care Medicine
DX: C78.00 Secondary malignant neoplasm of unspecified lung (principal); C79.70 Secondary malignant neoplasm of unspecified adrenal gland; C64.9 Malignant neoplasm of unspecified kidney, except renal pelvis; R06.02 Shortness of breath; F17.211 Nicotine dependence, cigarettes, in remission
CPT/HCPCS: 71250; 74176; 94618

== ENCOUNTER → 2023-01-13 | Outpatient (CLI) | payer MEDICARE, OTHER, SELFPAY ==
--- NOTE | 2023-01-13 09:47 | ECHOD_ITS ---
Reason For Study: ASHD Procedure This was a 2D Doppler, Color Flow transthoracic echocardiogram. Myocardial strain analysis was performed in this exam to aid in the assessment of cardiac function. The study was technically difficult. Exam performed in department. Left Ventricle Normal LV size. Apical false tendon noted. Left ventricular systolic function is normal. The estimated ejection fraction is 65 %. The global longitudinal strain = -22 % (normal). No evidence for diastolic dysfunction. No regional wall motion abnormalities noted. Right Ventricle Normal RV size. Normal systolic function. Atria Normal left atrium. Normal right atrium. No doppler evidence for ASD. Mitral Valve There is mild mitral annular calcification. Extension of the mitral and calcification onto the base of the posterior mitral valve leaflet. Mild focal mitral valve calcification of the anterior leaflet. Trivial mitral valve insufficiency. Tricuspid Valve The tricuspid valve is not well visualized. Aortic Valve Trisinus/trileaflet aortic valve. Mild focal aortic valve thickening. Mild focal aortic valve calcification. Mild aortic stenosis. Pulmonic Valve The pulmonic valve is not well visualized. Great Vessels Calcified aortic root. Pericardium/Pleural No pericardial effusion. MMode/2D Measurements & Calculations LVIDd: 4.7 cm IVSd: 1.1 cm LVOT diam: 2.0 cm LVIDs: 3.3 cm LVPWd: 1.1 cm LVOT area: 3.1 cm2 RVDd: 3.5 cm FS: 28.8 % LAV(MOD-bp): 53.6 ml LA A4 area: 17.9 cm2 LA dimension(2D): 3.5 cm LAV(MOD-bp) Indexed: 27.5 ml/m2 LAV(MOD-sp2): 53.8 ml LAV(MOD-sp4): 49.9 ml RA A4 area: 13.2 cm2 Time Measurements MV dec time: 0.15 sec Doppler Measurements & Calculations MV E max ildefonso: 88.1 cm/sec Lat Peak E' Ildefonso: 9.4 cm/sec Med Peak E' Ildefonso: 11.1 cm/sec MV A max ildefonso: 105.3 cm/sec E/E' lat: 9.4 E/E' med: 7.9 MV E/A: 0.84 MV dec slope: 688.3 cm/sec2 Ao V2 max: 217.4 cm/sec LV V1 max: 118.1 cm/sec Ao max P.9 mmHg LV V1 max P.6 mmHg Ao V2 mean: 159.6 cm/sec LV V1 mean P.9 mmHg Ao mean P.2 mmHg LV V1 mean: 79.1 cm/sec Ao V2 VTI: 49.9 cm LV V1 VTI: 26.3 cm AV (velocity ratio): 0.53 LINA(I,D): 1.7 cm2 LINA(V,D): 1.7 cm2 SV(LVOT): 82.8 ml PA V2 max: 114.2 cm/sec ECHO/Echo Complete Interpretation Summary The study was technically difficult. Left ventricular systolic function is normal. The estimated ejection fraction is 65 %. The global longitudinal strain = -22 % (normal). Apical false tendon noted. There is mild mitral annular calcification. Extension of the mitral and calcification onto the base of the posterior mitral valve leaflet Mild focal mitral valve calcification of the anterior leaflet. Trivial mitral valve insufficiency. Mild aortic stenosis. Calcified aortic root. No evidence for diastolic dysfunction. Ordering Physician: Benito Malcolm Referring Physician: Jacob Jennings Performed By: Albina Doshi, RDCS, RVT
== END | disposition home or self-care (01) ==
LOC: CVS 09:43
PROVIDERS: PCP Family Medicine; Referring Provider Internal Medicine Critical Care Medicine; Visit Provider Internal Medicine Critical Care Medicine
DX: I25.10 Atherosclerotic heart disease of native coronary artery without angina pectoris (principal); R06.02 Shortness of breath
CPT/HCPCS: 93306

== ENCOUNTER → 2023-01-21 | Outpatient (CLI) | payer MEDICARE, OTHER, SELFPAY ==
--- NOTE | 2023-01-21 10:03 | MRI_ITS ---
STUDY: MRI BRAIN WITH AND WITHOUT CONTRAST REASON FOR EXAM: Male, 67 years old. treated brain metastases -- please compare to prior TECHNIQUE: Standardized multiplanar fat and water weighted pulse sequences were obtained. IV Yes YES was administered for the contrast portion of the examination. COMPARISON: MRI 05/28/2023 FINDINGS: Mild atrophy and periventricular white matter ischemic changes without mass effect or restricted diffusion. . There is a tiny enhancing nodule in the left parietal lobe demonstrating subacute and chronic hemorrhage producing vasogenic edema measuring approximately 1.54 x 1.28 x 1.95 cm Normal bilateral basal ganglia. Normal thalami. There is no extra-axial fluid accumulation. Normal flow voids within the major intracranial circulation suggesting patency by spin echo criteria. Normal venous enhancement. There is no enhancing intra-axial or extra-axial abnormality. Partial empty sella deformity of uncertain significance. Normal, infundibular stalk, optic chiasm and hypothalamus. Normal tectal plate and pineal gland. Normal midbrain, ivelisse and medulla. Normal cerebellum. Normal basal cisterns. Normal bilateral temporal bones. Normal bilateral internal auditory canals. No demonstrated orbital abnormality, within the constraints of a routine brain study. Severe diffuse pansinusitis.. Normal calvarium and skull base. Normal visualized soft tissue structures. Normal visualized upper cervical spine. MRI/Brain W/WO Contrast IMPRESSION: Persistent partially hemorrhagic metastasis in the left parietal lobe with vasogenic edema which is relatively stable in size since prior study. No new lesions identified PET scan may prove useful for further evaluation of neoplastic activity if clinically warranted Severe diffuse pansinusitis. Electronically Signed: Favio Aburto MD at 19:49 EDT ,
[2023-01-21] MEDS: 0.9% Saline Lock 10 ML Syringe IV (11:00)
== END | disposition home or self-care (01) ==
LOC: MRI 10:03
PROVIDERS: PCP Family Medicine; Referring Provider Nurse Practitioner Family; Visit Provider Nurse Practitioner Family
DX: C79.31 Secondary malignant neoplasm of brain (principal)
CPT/HCPCS: 70553; A9575; A4216

== ENCOUNTER → 2023-03-13 | Outpatient (CLI) | payer MEDICARE, OTHER, SELFPAY ==
--- NOTE | 2023-03-13 06:53 | CT_ITS ---
EXAM: CT CHEST, ABDOMEN AND PELVIS WITHOUT INTRAVENOUS CONTRAST CLINICAL INDICATION: assess response to treatment;new abd pain TECHNIQUE: Helically acquired images were obtained of the chest, abdomen and pelvis without intravenous contrast. This CT exam was performed using one or more of the following dose reduction techniques: automated exposure control, adjustment of the mA and/or kV according to patient size, and/or use of iterative reconstruction technique. CONTRAST: Oral Readi-CAT COMPARISON: CT Chest Abdomen Pelvis dated 12/29/2022 FINDINGS: CHEST: LUNGS AND PLEURAL SPACES: Pleural thickening along the right posterior medial sulcus unchanged from prior exam. Mild diffuse centrilobular pulmonary emphysema is unchanged. No mass. No pneumothorax. HEART: Stable normal heart size. Prominent coronary artery calcification again seen. No pericardial effusion. MEDIASTINUM: Posterior mediastinal lymph node on the right appears slightly larger in size on the current exam now measuring 11 mm in short axis diameter from prior measurement of 7 mm. Esophagus is unremarkable. No hiatal hernia. THYROID: Normal. No thyroid nodules or calcification. ABDOMEN: LIVER: Normal. Homogeneous. PANCREAS: Normal. No focal cystic mass. SPLEEN: Normal. Normal size without focal cystic or solid mass. ADRENALS: Normal. No nodules. KIDNEYS AND URETERS: Left nephrectomy again seen. Stable 4.2 cm solid appearing right renal mass. Stable appearing 18 mm hypodense right renal lesion which may represent a complex cyst or solid lesion. Stable 2 cm angiomyolipoma right kidney. STOMACH AND BOWEL: Prominent eventration of the left lateral abdominal wall containing loops of large and small bowel again seen without obstruction. PELVIS: APPENDIX: Appendix is visualized and normal in appearance. BLADDER: Urinary bladder is contracted. REPRODUCTIVE: Unremarkable as visualized. No mass. CHEST, ABDOMEN and PELVIS: INTRAPERITONEAL SPACE: Normal. No ascites or other fluid collection. No free air. BONES/JOINTS: Fusion of the right SI joint again seen. SOFT TISSUES: Small fat-containing right inguinal hernia. VASCULATURE: No aortic aneurysm. LYMPH NODES: Normal. No enlarged lymph nodes. TUBES, LINES AND DEVICES: Right IJ infusion catheter remains in place within the proximal superior vena cava. CT/CT Chest, Abd, Pelvis WO Cont IMPRESSION: 1. Slightly larger right posterior mediastinal lymph node of uncertain significance. 2. Stable solid 4.2 cm right renal mass suggestive of a hypernephroma. 3. Additional findings detailed above. Electronically Signed: Rodrigo Lucio MD at 8:12 EDT ,
== END | disposition home or self-care (01) ==
LOC: CT 06:53
PROVIDERS: PCP Family Medicine; Referring Provider Nurse Practitioner Family; Visit Provider Nurse Practitioner Family
DX: C78.00 Secondary malignant neoplasm of unspecified lung (principal); C64.9 Malignant neoplasm of unspecified kidney, except renal pelvis
CPT/HCPCS: 71250; 74176

== ENCOUNTER → 2023-03-16 | Outpatient (CLI) | payer MEDICARE, OTHER, SELFPAY ==
--- NOTE | 2023-03-16 17:51 | MRI_ITS ---
STUDY: MRI BRAIN WITH AND WITHOUT CONTRAST REASON FOR EXAM: Male, 67 years old. solitary left parietal met, eval for progressio -- had prior brain SRS TECHNIQUE: Standardized multiplanar fat and water weighted pulse sequences were obtained. clariscan 17ml IV was administered for the contrast portion of the examination. COMPARISON: MRI of the brain dated January 21, 2023 FINDINGS: There is moderate interval enlargement and doubling in size of the mass in the posterior medial aspect and middle one third region of the left parietal lobe at the periphery of the splenium of the corpus callosum -the primary concern is for progression of the malignancy, however post radiation necrosis and flaring can be considered if there is history of recent radiation treatment to this region. MR spectroscopy can also be acquired to help in differentiating the processes. Clinical consult with neurosurgery is recommended. The left parietal mass has a thick enhancing rim with central necrosis and now measures 3.10 x 2.28 cm compared to the previous measurement of 1.2 x 1.6 cm. The surrounding vasogenic edema has slightly increased and is extended to the parasagittal and posterior aspect of the superior segment of the occipital lobe and has slightly increased in the anterior to posterior dimension and superior and posterior aspect of the left parietal lobe when compared to the prior study compared images series 6 on the old study and 18/25 series 6 on the current study. There is also slightly more mass effect on the occipital horn of the left lateral ventricle compared to the prior study. Minimal midline shift of 1 to 2 mm is present. No hydrocephalus is seen. There is no transtentorial herniation. There are no visualized metastatic lesions in the remaining aspects of the cerebral hemispheres or in the posterior fossa. No demonstrated thickening or abnormal enhancement of the meninges or dura is present on the current study. There are no visualized skull metastatic lesions. There is mild cerebral atrophy with widening of the extra-axial spaces and ventricular dilatation. There are a limited number of small white matter hyperintensities, distributed throughout the deep white matter tracts of the cerebral hemispheres, consistent with mild chronic white matter ischemic changes. Normal bilateral basal ganglia. Normal thalami. There is no extra-axial fluid accumulation. Normal flow voids within the major intracranial circulation suggesting patency by spin echo criteria. Normal venous enhancement. Normal sella turcica, pituitary gland, infundibular stalk, optic chiasm and hypothalamus. Normal tectal plate and pineal gland. Normal midbrain, ivelisse and medulla. Normal cerebellum. Normal basal cisterns. Normal bilateral temporal bones. Normal bilateral internal auditory canals. No demonstrated orbital abnormality, within the constraints of a routine brain study. There is mucoperiosteal inflammatory disease of the paranasal sinuses consistent with moderate chronic sinusitis. Normal calvarium and skull base. Normal visualized soft tissue structures. Normal visualized upper cervical spine. MRI/Brain W/WO Contrast IMPRESSION: 1. There is moderate interval enlargement and doubling in size of the mass in the posterior medial aspect and middle one third region of the left parietal lobe at the periphery of the splenium of the corpus callosum -the primary concern is for progression of the malignancy, however post radiation necrosis and flaring can be considered if there is history of recent radiation treatment to this region. MR spectroscopy can also be acquired to help in differentiating the processes. Clinical consult with neurosurgery is recommended. The left parietal mass has a thick enhancing rim with central necrosis and now measures 3.10 x 2.28 cm compared to the previous measurement of 1.2 x 1.6 cm. 2. The surrounding vasogenic edema has slightly increased and is extended to the parasagittal and posterior aspect of the superior segment of the occipital lobe and has slightly increased in the anterior to posterior dimension and superior and posterior aspect of the left parietal lobe when compared to the prior study compared images series 6 on the old study and 18/25 series 6 on the current study. 3. There is also slightly more mass effect on the occipital horn of the left lateral ventricle compared to the prior study. Minimal midline shift of 1 to 2 mm is present. 4. No hydrocephalus is seen. There is no transtentorial herniation. 5. There are no visualized metastatic lesions in the remaining aspects of the cerebral hemispheres or in the posterior fossa Electronically Signed: Cedrick Perez MD at 9:53 EDT ,
== END | disposition home or self-care (01) ==
LOC: MRI 17:36
PROVIDERS: PCP Family Medicine; Referring Provider Nurse Practitioner Family; Visit Provider Nurse Practitioner Family
DX: C79.31 Secondary malignant neoplasm of brain (principal)
CPT/HCPCS: 70553; A9575

== ENCOUNTER 2023-03-19 16:06 | Emergency (ER) | payer MEDICARE, OTHER, SELFPAY ==
[2023-03-19 16:07] VITALS: BP 126/63; PULSE 91; RESP 16; TEMP 37.4; O2SAT 96; BMI 32.7
--- NOTE | 2023-03-19 16:22 | EX.ED.DYSGE1 ---
HPI History of Present Illness Chief Complaint: Seizure [facility] Medical History Abnormal colonoscopy Adenocarcinoma of right lung Alcohol use Anemia Atherosclerotic heart disease of [place] coronary artery without angina pectoris 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 Contact with or suspected exposure to other viral communicable disease COPD (chronic obstructive pulmonary disease) COVID-19 DDD (degenerative disc disease) Dyspnea Easy bruising Elevated troponin (05/15/21) Encephalopathy (05/15/21) Encounter for immunotherapy Encounter for immunotherapy Epistaxis Essential (primary) hypertension Former smoker Frequent headaches Gastric reflux History of primary malignant neoplasm of left kidney Hx of radiation therapy Hyperlipidemia Imbalance Iron deficiency anemia due to chronic blood loss 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 Nonrheumatic aortic (valve) stenosis with insufficiency Pneumonia Port-A-Cath in place Seizure (05/15/21) Sinus congestion Skin cancer Wears dentures Wears glasses Home Medications aspirin 81 mg tablet,delayed release 81 mg PO DAILY HEART HEALTH 08/18/18 [History Last Taken 06/13/21] rosuvastatin 40 mg tablet (Crestor) 40 mg PO DAILY CHOLESTEROL 08/18/18 [History Last Taken 06/12/21] carvedilol 25 mg tablet 25 mg PO BID blood pressure 04/30/21 [History Last Taken 06/13/21] albuterol sulfate 90 mcg/actuation aerosol inhaler 1 puff inhalation Q6H PRN SOB 05/31/21 [History Last Taken 06/12/21] hydralazine 50 mg tablet 50 mg PO BID diuretic 05/31/21 [History Last Taken 06/13/21] lidocaine-prilocaine 2.5 %-2.5 % topical cream 1 applic topical ONCE PRN Port access 30 days #30 grams 01/28/22 [Rx Last Taken Unknown] amlodipine 10 mg tablet 10 mg PO DAILY Check with primary doctor 11/19/22 [History Last Taken Unknown] esomeprazole magnesium 20 mg capsule,delayed release (Nexium) 20 mg PO DAILY #30 caps 11/21/22 [Rx Last Taken Unknown] ipratropium 0.5 mg-albuterol 3 mg (2.5 mg base)/3 mL nebulization soln 3 ml inhalation Q4H PRN shortness of breath or wheezing #180 mL 11/24/22 [Rx Last Taken Unknown] ipratropium bromide 0.02 % solution for inhalation 0.5 mg (2.5 mL) inhalation Q4H PRN shortness of breath or wheezing #150 mL 11/24/22 [Rx Last Taken Unknown] Allergy/AdvReac Type Severity Reaction Status Date / Time No Known Allergies Allergy Verified 03/19/23 16:10 Family History Sister Diabetes CAD (coronary artery disease) Mother CVA (cerebral vascular accident) CAD (coronary artery disease) Lung cancer Father CAD (coronary artery disease) Brother CAD (coronary artery disease) Surgical History History of coronary angioplasty (01/05/04) History of coronary artery stent placement (07/17/03) History of lobectomy of lung History of nephrectomy, left Social History Smoking Status: Former smoker Tobacco: How many years used: 40 second hand exposure: No alcohol intake: current alcohol intake frequency: a few times a month Alcohol type: beer substance use type: does not use seatbelt use: always do you feel safe at home: Yes EXAM Physical Exam Const Vital Signs: 03/19/23 16:07 03/19/23 18:06 03/19/23 20:00 Temperature 99.4 F H Temperature Source Temporal Pulse Rate 91 85 87 Respiratory Rate 16 16 18 Blood Pressure 126/63 H 114/60 118/60 Blood Pressure Mean 84 78 79 Pulse Ox 96 97 93 Oxygen Delivery Method Room Air Room Air Room Air MDM MDM MDM Narrative Medical decision making narrative: HISTORY OF PRESENT ILLNESS: 67-year-old male here for transient right upper extremity weakness that he suggest is a seizure. This occurred approximately 1 and half hours prior to arrival resolved after a few minutes. Denies any recent head trauma. Notes remote history of seizure however he is not on antiseizure medicines at this time. Denies any alcohol use. Denies any vomiting or diarrhea REVIEW OF SYSTEMS: Pertinent positives: Seizure Pertinent negatives: Current focal weakness, loss of sensation, slurred speech, head trauma, headache PHYSICAL EXAM: Nursing triage notes reviewed, Vital signs reviewed Constitutional: please see mdm HENT: MMM Eyes: Pupils equal round and reactive to light, Extraocular muscles intact Neck: No stridor, no JVD, full neck ROM Lungs: Clear to auscultation, No wheezing or rales. No increased work of breathing, no conversational dyspnea, no accessory muscle use, no nasal flaring. No respiratory distress noted Heart: Regular rate and rhythm, No murmurs, No rubs and No gallops, 2+ distal pulses (radial, femoral, posterior tibial) in all extremities Abdomen: Soft, there is no tenderness, rigidity, rebound or guarding, no obvious peritoneal signs, no palpable pulsatile abdominal masses, no auscultated abdominal bruit : No CVAT Extremities: No edema Neuro: Alert and oriented x3, neuro exam at baseline, cranial nerves II through XII are intact. No pain with extraocular muscle movement. There is negative test of skew. Normal speech. 5 of 5 strength in upper and lower extremities in flexion extension. Intact sensation to light touch in upper and lower extremity dermatomes. No truncal or extremity ataxia. No dysdiadochokinesia. Normal gait. 2+ reflexes. No meningeal signs. Negative Babinski. NIH of 0 Skin: No rash or lesions noted MEDICAL DECISION MAKING: Chief Complaint: Seizure External records reviewed: History of brain metastases MDM Narrative: Patient was hemodynamically stable, afebrile, nontoxic-appearing. Neurologic exam was nonfocal I considered the following differential diagnosis: Mass, vasogenic edema, ICH I obtained a CT scan and labs to rule out signs of seizure, electrolyte abnormalities, hypoglycemia. I obtained a CT scan specifically to rule out the above mentioned differentials. Labs and images were remarkable for no evidence of bleed, mass or worsening vasogenic edema. No evidence of hyponatremia or hypoglycemia. Repeat neurologic exam without evidence of focal neurologic deficit. No clear life limiting etiology could explain the patient's symptoms. He is appropriate discharge home. He was given return precautions. He is given instructions to follow-up with oncology Factors affecting care: History of COPD, brain metastases, lung cancer, metastatic renal carcinoma, CAD, hypertension, hyper Social determinants of health: Former smoker History obtained from others: The patient's Shared decision making: I will have a discussion with the patient and or visitors regarding risk/benefits of further testing or admission. They will be made aware of of the risk/benefits inherent in this decision they will be given the opportunity to voice understanding. Consults: None Lab Data Attestation: I reviewed the patient's lab results. Lab results narrative: CBC with no leukocytosis, mild anemia, no thrombocytopenia BMP without evidence of significant electrolyte abnormalities, no anion gap, no acute kidney injury. Lactate is wnl indicating no end-organ hypoperfusion and/or hypoxia. Making seizure less likely Prolactin negative making seizure less likely Labs: Laboratory Results - last 24 hr 03/19/23 03/19/23 03/19/23 17:06 17:06 17:06 WBC 5.9 RBC 4.27 L Hgb 10.8 L Hct 34.1 L MCV 79.9 L MCH 25.3 L MCHC 31.7 L RDW Std Deviation 47.7 H RDW Coeff of Kailey 16.6 H Plt Count 212 MPV 8.5 Immature Gran % (Auto) 1.200 H Neut % (Auto) 72.5 H Lymph % (Auto) 12.2 L Gordon % (Auto) 9.8 Eos % (Auto) 3.6 Baso % (Auto) 0.7 Absolute Neuts (auto) 4.3 Absolute Lymphs (auto) 0.72 L Nucleated RBC % 0 Sodium 138 Potassium 3.5 Chloride 109 H Carbon Dioxide 22.0 Anion Gap 7 BUN 12 Creatinine 0.88 Estim Creat Clear Calc 68.92 Est GFR (MDRD) Af Amer 110 Est GFR (MDRD) Non-Af 91 BUN/Creatinine Ratio 13.6 Glucose 104 Lactic Acid 0.5 Calcium 8.8 Prolactin 16.4 Radiography Diagnostic Testing: Clinical Impression(s) from Imaging Studies Brain CT 03/19/23 16:47 IMPRESSION: Grossly stable extensive edema in the left posterior cerebral hemisphere. The patient''s mass is not clearly seen on this noncontrast exam. No definite acute abnormalities. Electronically Signed: Sami Gould MD at 17:56 EDT , Discharge Plan Triage Chief Complaint: Seizure ED Provider: Eduard Pratt Dx/Rx/DC Orders Prescriptions: No Action carvedilol 25 mg tablet 25 mg PO BID Rx Instructions: must administer with a meal/food albuterol sulfate 90 mcg/actuation HFA aerosol inhaler 1 puff inhalation Q6H PRN (Reason: SOB) lidocaine-prilocaine 2.5-2.5 % cream 1 applic topical ONCE PRN (Reason: Port access ) 30 Days Qty: 30 2RF ipratropium-albuterol 0.5 mg-3 mg(2.5 mg base)/3 mL solution for nebulization 3 ml inhalation Q4H PRN (Reason: shortness of breath or wheezing) Qty: 180 3RF ipratropium bromide 0.02 % solution 0.5 mg inhalation Q4H PRN (Reason: shortness of breath or wheezing) Qty: 150 6RF aspirin 81 MG tablet 81 mg PO DAILY rosuvastatin [Crestor] 40 MG tablet 40 mg PO DAILY amlodipine 10 mg tablet 10 mg PO DAILY esomeprazole magnesium [Nexium] 20 mg capsule,delayed release(DR/EC) 20 mg PO DAILY Qty: 30 0RF hydralazine 50 mg tablet 50 mg PO BID Primary Care Provider: Jacob Jennings Referrals: Jacob Jennings DO [Primary Care Provider] -
--- NOTE | 2023-03-19 16:47 | CT_ITS ---
STUDY: CT BRAIN WITHOUT CONTRAST REASON FOR EXAM: Male, 67 years old. seizure Although not indicated on this requisition, this patient is apparently known to have a left cerebral mass with edema, based on review of multiple previous exams. Since this is not reported on the current history, please ensure close correlation history and previous studies. RADIATION DOSAGE (If Supplied By Facility): CTDIvol = ( 44.99 ) mGy, DLP = ( 829.85 ) mGycm TECHNIQUE: Transaxial CT imaging of the brain was performed without administration of intravenous contrast material. Individualized dose optimization techniques were used for this CT. COMPARISON: MRI 10/14/2022, 12/16/2022, 01/21/2023, 03/16/2023. FINDINGS: Normal soft tissue structures. Normal calvarium. Extensive vasogenic edema seen of the left parietal and occipital lobes, grossly stable and consistent with the patient''s known left cerebral neoplastic mass. No other changes or acute abnormality. Normal size ventricles and extra-axial spaces for the patient''s age. There are areas of decreased attenuation within the white matter tracts of the supratentorial brain, consistent with microvascular disease changes. Normal basal ganglia and thalami. Normal brainstem. Normal cerebellum. There is no intracranial hemorrhage. There are no findings of an acute ischemic infarction. There is mucoperiosteal inflammatory disease of the paranasal sinuses consistent with moderate chronic sinusitis. CT/Brain/Head without Contrast IMPRESSION: Grossly stable extensive edema in the left posterior cerebral hemisphere. The patient''s mass is not clearly seen on this noncontrast exam. No definite acute abnormalities. Electronically Signed: Sami Gould MD at 17:56 EDT ,
[2023-03-19 17:16] LABS: Absolute Lymphocyte Count 0.72 X10^3/uL (0.83-4.51); Absolute Neutrophil Count 4.3 X10^3/uL (2.0-7.7); Basophil# 0.04 X10^3/uL; Basophil% 0.7 % (0-1); Eosinophil# 0.21 X10^3/uL; Eosinophils% 3.6 % (0-5); Hematocrit 34.1 % (40-54); Hemoglobin 10.8 g/dL (13.0-16.5); Lymphocyte # 0.72 X10^3/ul (0.83-4.51); Lymphocyte % 12.2 % (19-41); Mean Corp Hgb Conc 31.7 g/dL (32-36); Mean Corpuscular Hgb 25.3 pg (27.0-32.0); Mean Corpuscular Volume 79.9 fL (80-94); Mean Platelet Vol. 8.5 fl (6.2-12.0); Monocyte# 0.58 X10^3/uL; Monocyte% 9.8 % (0-10); NRBC Flagged by Analyzer 0 % (0-5); Neutrophil # 4.27 X10^3/uL (2.7-7.7); Neutrophil % 72.5 % (47-70); Platelet Count 212 K/mm3 (150-450); RBC Distribution Width CV 16.6 % (11.6-14.6); RBC Distribution Width SD 47.7 fl (35.1-43.9); Red Blood Count 4.27 M/mm3 (4.6-6.2); White Blood Count 5.9 K/mm3 (4.4-11.0)
[2023-03-19 17:37] LABS: Anion Gap 7 (5-15); BUN 12 mg/dL (7-18); BUN/Creat Ratio 13.6 RATIO (10-20); Calcium,Total 8.8 mg/dL (8.5-10.1); Chloride 109 mmol/L (98-107); Creatinine, Serum 0.88 mg/dL (0.70-1.30); EST Glomerular Filtration Rate 91 mL/min (>60); Est Glom Filt Rate - Afr Amer 110 mL/min (>60); Estimated Creatinine Clearance 68.92 ml/min; Glucose 104 mg/dL (74-106); Potassium 3.5 mmol/L (3.5-5.1); Prolactin 16.4 ng/mL; Sodium Level 138 mmol/L (136-145)
[2023-03-19 17:45] LABS: Lactic Acid 0.5 mmol/L (0.4-1.9)
[2023-03-19 18:06] VITALS: BP 114/60; PULSE 85; RESP 16; O2SAT 97
[2023-03-19 20:00] VITALS: BP 118/60; PULSE 87; RESP 18; O2SAT 93
[2023-03-19 20:45] VITALS: BP 118/60; PULSE 68; RESP 15; O2SAT 97
== END 2023-03-19 20:46 | disposition home or self-care (01) ==
PROVIDERS: Emergency Provider Emergency Medicine; PCP Family Medicine; Visit Provider Emergency Medicine
DX: M62.81 Muscle weakness (generalized) (principal); C79.31 Secondary malignant neoplasm of brain; J44.9 Chronic obstructive pulmonary disease, unspecified; I25.10 Atherosclerotic heart disease of native coronary artery without angina pectoris; E78.5 Hyperlipidemia, unspecified; I10 Essential (primary) hypertension; Z90.5 Acquired absence of kidney; Z95.5 Presence of coronary angioplasty implant and graft; Z79.82 Long term (current) use of aspirin; Z79.899 Other long term (current) drug therapy; Z85.118 Personal history of other malignant neoplasm of bronchus and lung; Z86.16 Personal history of COVID-19; Z87.891 Personal history of nicotine dependence
CPT/HCPCS: 36591; 70450; 80048; 83605; 84146; 85025; 99284; A4216

== ENCOUNTER 2023-05-02 10:41 | Inpatient (IN) | payer MEDICARE, OTHER, SELFPAY ==
[2023-05-02] VITALS (13 sets, daily range): BP systolic 105–131; BP diastolic 57–91; PULSE 73–94; RESP 14–22; TEMP 35.9–38; O2SAT 87–97; BMI 30.7; BMI 29.8
--- NOTE | 2023-05-02 10:55 | EKG12_ITS ---
Test Reason : SOB Blood Pressure : / mmHG Vent. Rate : 094 BPM Atrial Rate : 094 BPM P-R Int : 150 ms QRS Dur : 074 ms QT Int : 350 ms P-R-T Axes : 024 021 061 degrees QTc Int : 437 ms Normal sinus rhythm Nonspecific ST abnormality Abnormal ECG Confirmed by ROSEY BAUTISTA, ENEIDA ([id number]), online editor MATHEW VORA ([id number]) on 05/04/2023 12:59:16 PM Referred By: Confirmed By:ENEIDA CURRIE MD
--- NOTE | 2023-05-02 10:55 | RAD_ITS ---
HISTORY: sob, cough, fever, copd. TECHNIQUE: XR Chest 1 View. COMPARISON: 11/19/2022. FINDINGS: CARDIOMEDIASTINAL BORDERS: Right chest wall port with catheter tip at the level of the distal superior vena cava again seen. Stable cardiomediastinal contour with calcification of the aortic knob. LUNGS: Mild linear bibasilar opacities. 2 cm nodular left retrocardiac opacity. PLEURA: Mild right pleural effusion or pleural scarring. OSSEOUS STRUCTURES: Degenerative change. RAD/Chest 1 View (Portable) IMPRESSION: 2 cm left retrocardiac opacity, possible focus of infection or large pulmonary nodule. Recommend follow-up to resolution or CT. Mild right basilar atelectasis with unchanged mild right pleural effusion. Electronically Signed: Jesusita Borges MD at 12:32 EDT ,
--- NOTE | 2023-05-02 10:59 | ED.VIS.DYS ---
HPI History of Present Illness Chief Complaint: Shortness of Breath Informant: patient and spouse/S.O. Onset/Context/Timing Onset: Weeks (2) Context: gradual and onset Timing: Continuous Quality: Positive for Dyspnea on exertion and Wheezing Current Severity: Moderate Maximum Severity: Moderate Worsened by: Exertion and Coughing Relieved by: Nothing Associated Symptoms cough, fever and clear sputum Chest Pain: Positive for None Narrative Narrative: Patient states he started getting short of breath 2 weeks ago and coughing up clear sputum, initial small amount of blood but that resolved after several days, after inhaling irritants 3 days in a row he states. He was exposed to mold in the basement, he was breathing in the dust from a [employer] pool filter, and possibly some pool chlorine chemicals. He has a low-grade fever here, he believes he has been experiencing some fevers and chills at home off-and-on. He denies any orthopnea or lower extremity swelling. He is currently getting Keytruda for kidney cancer he has a remote history of lung cancer and had surgery with a part of his lung removed, and the states that he has metastases to the brain. He does not seem confused recently. He is weak today. He is not on home oxygen and he and the significant other states several times his COPD is very mild. [facility] Medical History Abnormal colonoscopy Adenocarcinoma of right lung Alcohol use Anemia Atherosclerotic heart disease of [place] coronary artery without angina pectoris 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 Contact with or suspected exposure to other viral communicable disease COPD (chronic obstructive pulmonary disease) COVID-19 DDD (degenerative disc disease) Dyspnea Easy bruising Elevated troponin (05/15/21) Encephalopathy (05/15/21) Encounter for immunotherapy Encounter for immunotherapy Epistaxis Essential (primary) hypertension Former smoker Frequent headaches Gastric reflux History of primary malignant neoplasm of left kidney Hx of radiation therapy Hyperlipidemia Imbalance Iron deficiency anemia due to chronic blood loss 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 Nonrheumatic aortic (valve) stenosis with insufficiency Pneumonia Port-A-Cath in place Seizure (05/15/21) Sinus congestion Skin cancer Wears dentures Wears glasses Home Medications aspirin 81 mg tablet,delayed release 81 mg PO DAILY HEART HEALTH 08/18/18 [History Last Taken 06/13/21] rosuvastatin 40 mg tablet (Crestor) 40 mg PO DAILY CHOLESTEROL 08/18/18 [History Last Taken 06/12/21] carvedilol 25 mg tablet 25 mg PO BID blood pressure 04/30/21 [History Last Taken 06/13/21] albuterol sulfate 90 mcg/actuation aerosol inhaler 1 puff inhalation Q6H PRN SOB 05/31/21 [History Last Taken 06/12/21] hydralazine 50 mg tablet 50 mg PO BID diuretic 05/31/21 [History Last Taken 06/13/21] lidocaine-prilocaine 2.5 %-2.5 % topical cream 1 applic topical ONCE PRN Port access 30 days #30 grams 01/28/22 [Rx Last Taken Unknown] amlodipine 10 mg tablet 10 mg PO DAILY Check with primary doctor 11/19/22 [History Last Taken Unknown] esomeprazole magnesium 20 mg capsule,delayed release (Nexium) 20 mg PO DAILY #30 caps 11/21/22 [Rx Last Taken Unknown] ipratropium 0.5 mg-albuterol 3 mg (2.5 mg base)/3 mL nebulization soln 3 ml inhalation Q4H PRN shortness of breath or wheezing #180 mL 11/24/22 [Rx Last Taken Unknown] ipratropium bromide 0.02 % solution for inhalation 0.5 mg (2.5 mL) inhalation Q4H PRN shortness of breath or wheezing #150 mL 11/24/22 [Rx Last Taken Unknown] dexamethasone 4 mg tablet 4 mg PO BID #60 tabs 03/20/23 [Rx Last Taken Unknown] Allergy/AdvReac Type Severity Reaction Status Date / Time No Known Allergies Allergy Verified 05/02/23 10:44 Family History Sister Diabetes CAD (coronary artery disease) Mother CVA (cerebral vascular accident) CAD (coronary artery disease) Lung cancer Father CAD (coronary artery disease) Brother CAD (coronary artery disease) Surgical History History of coronary angioplasty (01/05/04) History of coronary artery stent placement (07/17/03) History of lobectomy of lung History of nephrectomy, left Social History Smoking Status: Former smoker Tobacco: How many years used: 40 second hand exposure: No alcohol intake: current alcohol intake frequency: a few times a month Alcohol type: beer substance use type: does not use seatbelt use: always do you feel safe at home: Yes ROS ROS ED Constitutional Constitutional ED: Reports chills, fever(s) and weakness Eyes Eyes: Denies change in vision or diplopia ENT ENT ED: Denies ear pain, rhinorrhea or sore throat Cardiovascular Cardiovascular: Denies chest pain or palpitations Respiratory/Chest Respiratory/Chest: Reports cough and dyspnea Gastrointestinal Gastrointestinal: Denies abdominal pain, diarrhea, nausea or vomiting Genitourinary Genitourinary ED: Denies dysuria or hematuria Musculoskeletal Musculoskeletal: Denies back pain or neck pain Integumentary Denies abscess or rash Neurologic Neurologic: Denies headache(s), paresthesias or weakness Psychiatric Psychiatric: Denies anxiety or suicidal thoughts EXAM Physical Exam Const Vital Signs: 05/02/23 10:42 05/02/23 11:08 05/02/23 11:08 Temperature 100.4 F H Temperature Source Temporal Pulse Rate 93 94 Respiratory Rate 14 22 H Respiratory Effort Respiratory Pattern Blood Pressure 125/57 H 118/69 Blood Pressure Mean 79 85 Pulse Ox 90 87 92 Oxygen Delivery Method Room Air Room Air Nasal Cannula Oxygen Flow Rate (L/min) 2 05/02/23 11:13 05/02/23 11:11 05/02/23 13:16 Temperature Temperature Source Pulse Rate 92 80 Respiratory Rate 18 18 Respiratory Effort Short of Breath Respiratory Pattern Tachypnea Normal Blood Pressure 117/68 Blood Pressure Mean 84 Pulse Ox 89 Oxygen Delivery Method Nasal Cannula Oxygen Flow Rate (L/min) 4 05/02/23 14:58 Temperature Temperature Source Pulse Rate 85 Respiratory Rate 22 H Respiratory Effort Respiratory Pattern Blood Pressure 105/91 H Blood Pressure Mean 95 Pulse Ox 92 Oxygen Delivery Method Nasal Cannula Oxygen Flow Rate (L/min) 4 Positive well nourished and well developed Constitutional Narrative: Mild respiratory distress, able to speak in 5-10 for sentences General Appearance ED: well developed HEENT Reports moist mucous membranes normocephalic and atraumatic Eyes PERRL and EOMs intact bilaterally Neck full ROM, no lymphadenopathy, supple and no meningeal signs Resp Resp Narrative: Mild respiratory distress. Expiratory wheezes throughout. Decreased breath sounds left apex compared with the right. Cardio regular rate, regular rhythm and no murmurs Rate: Negative for tachycardic GI non-tender and non-distended Auscultation: normoactive bowel sounds Palpation: soft Back/Spine no CVA tenderness General Back: other FROM Extremity normal to inspection Extremity Narrative: No calf tenderness or palpable cords. General Extremety ED: Negative for edema, pulses abnormal or tenderness General Extremity: Negative for edema or pulses abnormal Neuro oriented x3, CN's II-XII intact bilaterally and no sensory deficits noted Sensorium / Orientation: awake and alert Motor Exam: general weakness Psych mental status grossly normal Skin no rashes or lesions noted and no wounds MDM MDM MDM Narrative Medical decision making narrative: Work-up ordered and patient given a duo nebulizer treatment which really did not seem to help subjectively. Still hypoxemic even with 2 L nasal cannula moved up to 3 to keep him above 90, in mild respiratory distress but able to converse protecting his airway does not require BiPAP or intubation at this time. 1 view chest x-ray my interpretation shows what appears to be a left lower lobe infiltrate but his white blood count is only 5.5, suggesting either this is possibly chronic, viral, COVID, or something noninfectious. [place] hump is considered. He has active cancer, he has a Wells score that is approximately 2.5 and therefore instead of ordering a D-dimer followed with CT angiography of the chest to evaluate this abnormal area in the left lower lobe and in order to evaluate for pulmonary embolus. With regards to the rest of his labs his lactate is within normal limits, his troponin is within normal limits, his EKG shows no acute injury, and my pretest probability for cardiac etiologies is relatively low, and consistent with this his BNP is also normal. I reviewed the CTA images and the report, which I agree with. Appears to show pneumonia as I suspected on the x-ray, it did show what appears to be a nonocclusive single pulmonary embolus that appears chronic, which may be an indication for him to be anticoagulated but less likely to be causing his dyspnea and hypoxemia here. Due to the hypoxemia even though he is not in respiratory distress any longer but still tachypnea, he will need to be admitted for further treatment. Antibiotic started. History & Record Review Additional record(s) reviewed:: Prior outpatient record (Pulmonary clinic visit and echocardiogram 01/13/2023 with EF 65% and no diastolic dysfunction) Lab Data Attestation: I reviewed the patient's lab results. Labs: Laboratory Results - last 24 hr 05/02/23 05/02/23 05/02/23 11:05 11:05 11:05 WBC 5.5 RBC 4.49 L Hgb 11.4 L Hct 34.9 L MCV 77.7 L MCH 25.4 L MCHC 32.7 RDW Std Deviation 48.4 H RDW Coeff of Kailey 17.2 H Plt Count 105 L MPV 9.6 Neut % (Auto) Not Reportable Absolute Neuts (auto) 4.6 Absolute Lymphs (auto) 0.44 L Total Counted 100 Neutrophils % (Manual) 79 H Band Neutrophils % 4 Lymphocytes % (Manual) 8 L Monocytes % (Manual) 2 Metamyelocytes % 3 H Myelocytes % 4 H Diff Path Review May foll Platelet Estimate ADEQUATE RBC Morphology NORM C+C Sodium 132 L Potassium 3.7 Chloride 104 Carbon Dioxide 19.0 L Anion Gap 9 BUN 18 Creatinine 0.97 Estim Creat Clear Calc 62.52 Est GFR (MDRD) Af Amer 99 Est GFR (MDRD) Non-Af 82 BUN/Creatinine Ratio 18.6 Glucose 169 H Lactic Acid 1.8 Calcium 8.9 Troponin I High Sens 11 B-Natriuretic Peptide 05/02/23 11:05 WBC RBC Hgb Hct MCV MCH MCHC RDW Std Deviation RDW Coeff of Kailey Plt Count MPV Neut % (Auto) Absolute Neuts (auto) Absolute Lymphs (auto) Total Counted Neutrophils % (Manual) Band Neutrophils % Lymphocytes % (Manual) Monocytes % (Manual) Metamyelocytes % Myelocytes % Diff Path Review Platelet Estimate RBC Morphology Sodium Potassium Chloride Carbon Dioxide Anion Gap BUN Creatinine Estim Creat Clear Calc Est GFR (MDRD) Af Amer Est GFR (MDRD) Non-Af BUN/Creatinine Ratio Glucose Lactic Acid Calcium Troponin I High Sens B-Natriuretic Peptide 34.6 Radiography Chest X-Ray - ED: 1 View, Read by ED Physician and Left Infiltrate Diagnostic Testing: Clinical Impression(s) from Imaging Studies Chest X-Ray 05/02/23 10:55 IMPRESSION: 2 cm left retrocardiac opacity, possible focus of infection or large pulmonary nodule. Recommend follow-up to resolution or CT. Mild right basilar atelectasis with unchanged mild right pleural effusion. Electronically Signed: Jesusita N. Jony, MD at 12:32 EDT , Chest CTA 05/02/23 12:01 IMPRESSION: No evidence of acute pulmonary embolism. Small chronic nonocclusive right lower lobar pulmonary embolism. New 3 mm spiculated right lower lobe nodule and left lower lobe pulmonary nodules measuring up to 8 mm, suspicious for metastases. Progression of mild mediastinal and hilar lymphadenopathy. Mild pneumonitis or atypical pneumonia with mosaic attenuation pattern and groundglass opacities with mild septal thickening most confluent in the left upper lobe inferiorly. Chronic scarring in the right lung with pleural thickening. Enhancing right renal mass. Left nephrectomy. Electronically Signed: Jesusita Borges MD at 13:17 EDT , Rhythm Strip Rhythm Strip: Sinus Rhythm Rate: 90 Ectopy: None EKG Initial EKG: Attestation: I personally reviewed and interpreted this EKG as follows: Interpretation: Sinus Rhythm and No Acute Injury Pattern Prior EKG tracings: available for review Prior: Unchanged Discharge Plan Triage Chief Complaint: Shortness of Breath ED Provider: [place] Simon Dx/Rx/DC Orders Clinical Impression: Pneumonia, Hypoxemia Prescriptions: No Action carvedilol 25 mg tablet 25 mg PO BID Rx Instructions: must administer with a meal/food albuterol sulfate 90 mcg/actuation HFA aerosol inhaler 1 puff inhalation Q6H PRN (Reason: SOB) lidocaine-prilocaine 2.5-2.5 % cream 1 applic topical ONCE PRN (Reason: Port access ) 30 Days Qty: 30 2RF ipratropium-albuterol 0.5 mg-3 mg(2.5 mg base)/3 mL solution for nebulization 3 ml inhalation Q4H PRN (Reason: shortness of breath or wheezing) Qty: 180 3RF ipratropium bromide 0.02 % solution 0.5 mg inhalation Q4H PRN (Reason: shortness of breath or wheezing) Qty: 150 6RF aspirin 81 MG tablet 81 mg PO DAILY rosuvastatin [Crestor] 40 MG tablet 40 mg PO DAILY amlodipine 10 mg tablet 10 mg PO DAILY esomeprazole magnesium [Nexium] 20 mg capsule,delayed release(DR/EC) 20 mg PO DAILY Qty: 30 0RF hydralazine 50 mg tablet 50 mg PO BID dexamethasone 4 mg tablet 4 mg PO BID Qty: 60 0RF Rx Instructions: take half tab PO daily Primary Care Provider: Jacob Jennings Referrals: Jacob Jennings DO [Primary Care Provider] - Disposition Disposition: Acute Care Hospital [facility]
[2023-05-02] MEDS: Ipratropium/Albuterol Sulfate 3 ML AMPUL.NEB INHALATION ×3 (11:09→23:22)
[2023-05-02 11:21] LABS: Hematocrit 34.9 % (40-54); Hemoglobin 11.4 g/dL (13.0-16.5); Mean Corp Hgb Conc 32.7 g/dL (32-36); Mean Corpuscular Hgb 25.4 pg (27.0-32.0); Mean Corpuscular Volume 77.7 fL (80-94); Mean Platelet Vol. 9.6 fl (6.2-12.0); POSITIVE COUNT YES; POSITIVE DIFFERENTIAL YES; POSITIVE MORPHOLOGY YES; Platelet Count 105 K/mm3 (150-450); RBC Distribution Width CV 17.2 % (11.6-14.6); RBC Distribution Width SD 48.4 fl (35.1-43.9); Red Blood Count 4.49 M/mm3 (4.6-6.2); White Blood Count 5.5 K/mm3 (4.4-11.0)
[2023-05-02 11:25] LABS: Differential Indicated MANUAL DIFF
[2023-05-02 11:34] LABS: Anion Gap 9 (5-15); BUN 18 mg/dL (7-18); BUN/Creat Ratio 18.6 RATIO (10-20); Calcium,Total 8.9 mg/dL (8.5-10.1); Chloride 104 mmol/L (98-107); Creatinine, Serum 0.97 mg/dL (0.70-1.30); EST Glomerular Filtration Rate 82 mL/min (>60); Est Glom Filt Rate - Afr Amer 99 mL/min (>60); Estimated Creatinine Clearance 62.52 ml/min; Glucose 169 mg/dL (74-106); Potassium 3.7 mmol/L (3.5-5.1); Sodium Level 132 mmol/L (136-145); Troponin-I HS 11 pg/mL (3.0-78.0)
[2023-05-02 11:48] LABS: Lactic Acid 1.8 mmol/L (0.4-1.9)
[2023-05-02 12:00] LABS: BNP,B-Type NATRIURETIC PEPTIDE 34.6 pg/mL (0-100)
--- NOTE | 2023-05-02 12:01 | CT_ITS ---
HISTORY: SOB, active cancer, high risk PE. TECHNIQUE: CT angiogram of the chest was performed after the intravenous administration of 75 mL Isovue 370. Post-processing of the angiographic images was performed with multiplanar reformation and 3D reconstruction. Individualized dose optimization techniques were used for this CT. 1267 images. COMPARISON: XR same day, CT 03/13/2023. FINDINGS: CENTRAL AIRWAYS: Minimal dependent fluid in the trachea. LUNGS: Mild centrilobular emphysema. Unchanged appearance of scarring with suture in the right upper and middle lobes. Interval development of diffuse mosaic attenuation pattern with mild groundglass opacities, septal thickening, and air trapping. 3 mm spiculated right lower lobe nodule on image 158/269 now seen. Mild mixed groundglass and alveolar opacities in the left upper lobe inferiorly. 8 mm noncalcified left lower lobe noncalcified nodule centrally, obscured by adjacent bronchovascular structures on image 156/269. 2 mm left lower lobe nodule on the same image more anteriorly. Mild septal thickening and dependent atelectasis in the left lower lobe. PLEURA: Chronic right pleural thickening without pneumothorax or significant effusion. HEART/PERICARDIUM: Heart within normal limits in size. No pericardial effusion. PULMONARY ARTERIES: Small linear filling defect with mild calcification in the right lower lobe pulmonary artery. No acute occlusive filling defect in the pulmonary arteries. AORTA/VESSELS: No thoracic aortic aneurysm or dissection flap. Right chest wall port with catheter tip in the superior vena cava MEDIASTINUM/ANGELO: 1.9 cm right posterior mediastinal/superior mediastinal lymph node, previously 1.6 cm. 1.8 cm AP window lymph node, previously 9 mm. Mildly enlarged hilar lymph nodes also noted. OSSEOUS STRUCTURES: Degenerative change.. UPPER ABDOMEN: Left nephrectomy with incompletely imaged left lumbar hernia containing colon. Partially imaged 2.3 cm enhancing right renal mass. CT/CTA Chest W/WO Contrast IMPRESSION: No evidence of acute pulmonary embolism. Small chronic nonocclusive right lower lobar pulmonary embolism. New 3 mm spiculated right lower lobe nodule and left lower lobe pulmonary nodules measuring up to 8 mm, suspicious for metastases. Progression of mild mediastinal and hilar lymphadenopathy. Mild pneumonitis or atypical pneumonia with mosaic attenuation pattern and groundglass opacities with mild septal thickening most confluent in the left upper lobe inferiorly. Chronic scarring in the right lung with pleural thickening. Enhancing right renal mass. Left nephrectomy. Electronically Signed: Jesusita Borges MD at 13:17 EDT ,
[2023-05-02 12:04] LABS: Lymphocyte 8 % (19-41); Metamyelocyte 3 % (0-1); Monocyte 2 % (0-10); Myelocyte 4 % (0-0); Neutrophil-Band 4 % (0-5); Neutrophil-Segmented 79 % (47-70); Platelet Estimate ADEQUATE (ADEQ); Red Cell Morphology NORM C+C NORMAL (NORM C&C); Total Cells Counted 100 (MANUAL DIFF)
[2023-05-02 12:05] LABS: Absolute Lymphocyte Count 0.44 X10^3/uL (0.83-4.51); Absolute Neutrophil Count 4.6 X10^3/uL (2.0-7.7)
--- NOTE | 2023-05-02 15:30 | PCM.HP.STD ---
[facility] - General General Date of Admission: 05/02/23 Date of Service: 05/02/23 Chief Complaint: SOB HPI Narrative KENN IRAHETA, is a 67 M who presented to the emergency department at [facility] on 05/02/2023 complaining of shortness of breath. Patient reports this has been ongoing for about the last 2 weeks but worsening as of recently. He has had low-grade temperatures at home and complains of feeling chilled. He has had associated cough and dyspnea with exertion. Cough is productive of a clear to white sputum. He has had no sick contacts. 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 Patient is not oxygen dependent at baseline but currently requiring 3 to 4 L supplemental nasal cannula. He is on Keytruda for his metastatic renal cell carcinoma. Vital signs on presentation demonstrate a temperature of 100.4, heart rate 93, blood pressure 123/57, respiratory rate has been anywhere from 14-22 and oxygen saturations were 87% on room air at rest. His CBC shows normal white count with a microcytic anemia showing hemoglobin of 11.4 which is stable for him and a thrombocytopenia with a platelet count of 105 which is his baseline. He does have a left shift with a 79% neutrophilia and 4% bands. His chemistry panel shows chronic stable hyponatremia normal renal function and hyperglycemia with a glucose of 169. A lactic acid was obtained and was normal. BNP was normal at 34.6 and his troponin was 11. EKG shows normal sinus rhythm with normal intervals and no changes concerning for acute ischemia. Chest x-ray showed a 2 cm left retrocardiac opacity and a unchanged mild right pleural effusion. CTA of his chest demonstrated no acute PE but did demonstrate a small chronic nonocclusive right lower lobe PE, a new 3 mm spiculated right lower lobe nodule as well as a left lower lobe pulmonary nodules measuring 8 mm that were suspicious for metastasis, Progression of mediastinal and hilar lymphadenopathy, mild pneumonitis, bronchiectasis and chronic scarring in the right lung with pleural thickening. Stable appearing enhancing right renal mass is also noted with previous left nephrectomy. The patient was placed on supplemental oxygen emergency department and was requiring 3 to 4 L to maintain saturations above 88%. He was given IV Levaquin and request for admission was made. [facility] Medical History Abnormal colonoscopy Adenocarcinoma of right lung Alcohol use Anemia Atherosclerotic heart disease of [place] coronary artery without angina pectoris 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 Contact with or suspected exposure to other viral communicable disease COPD (chronic obstructive pulmonary disease) COVID-19 DDD (degenerative disc disease) Dyspnea Easy bruising Elevated troponin (05/15/21) Encephalopathy (05/15/21) Encounter for immunotherapy Encounter for immunotherapy Epistaxis Essential (primary) hypertension Former smoker Frequent headaches Gastric reflux History of primary malignant neoplasm of left kidney Hx of radiation therapy Hyperlipidemia Hyponatremia Imbalance Iron deficiency anemia due to chronic blood loss 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 Nonrheumatic aortic (valve) stenosis with insufficiency Pneumonia Port-A-Cath in place Seizure (05/15/21) Sinus congestion Skin cancer Thrombocytopenia Wears dentures Wears glasses Home Medications aspirin 81 mg tablet,delayed release 81 mg PO DAILY HEART HEALTH 08/18/18 [History Last Taken 06/13/21] rosuvastatin 40 mg tablet (Crestor) 40 mg PO DAILY CHOLESTEROL 08/18/18 [History Last Taken 06/12/21] carvedilol 25 mg tablet 25 mg PO BID blood pressure 04/30/21 [History Last Taken 06/13/21] albuterol sulfate 90 mcg/actuation aerosol inhaler 1 puff inhalation Q6H PRN SOB 05/31/21 [History Last Taken 06/12/21] hydralazine 50 mg tablet 50 mg PO BID diuretic 05/31/21 [History Last Taken 06/13/21] lidocaine-prilocaine 2.5 %-2.5 % topical cream 1 applic topical ONCE PRN Port access 30 days #30 grams 01/28/22 [Rx Last Taken Unknown] amlodipine 10 mg tablet 10 mg PO DAILY Check with primary doctor 11/19/22 [History Last Taken Unknown] esomeprazole magnesium 20 mg capsule,delayed release (Nexium) 20 mg PO DAILY #30 caps 11/21/22 [Rx Last Taken Unknown] ipratropium 0.5 mg-albuterol 3 mg (2.5 mg base)/3 mL nebulization soln 3 ml inhalation Q4H PRN shortness of breath or wheezing #180 mL 11/24/22 [Rx Last Taken Unknown] ipratropium bromide 0.02 % solution for inhalation 0.5 mg (2.5 mL) inhalation Q4H PRN shortness of breath or wheezing #150 mL 11/24/22 [Rx Last Taken Unknown] dexamethasone 4 mg tablet 4 mg PO BID #60 tabs 03/20/23 [Rx Last Taken Unknown] Allergy/AdvReac Type Severity Reaction Status Date / Time No Known Allergies Allergy Verified 05/02/23 10:44 Family History Sister Diabetes CAD (coronary artery disease) Mother CVA (cerebral vascular accident) CAD (coronary artery disease) Lung cancer Father CAD (coronary artery disease) Brother CAD (coronary artery disease) Surgical History History of coronary angioplasty (01/05/04) History of coronary artery stent placement (07/17/03) History of lobectomy of lung History of nephrectomy, left Social History Smoking Status: Former smoker Tobacco: How many years used: 40 second hand exposure: No alcohol intake: current alcohol intake frequency: a few times a month Alcohol type: beer substance use type: does not use seatbelt use: always do you feel safe at home: Yes ROS Constitutional Constitutional: Reports chills and fever(s); Denies anorexia, change in weight, fatigue, malaise, night sweats, weakness or other Eyes Eyes: Denies blurry vision, change in eye color, change in vision, discharge from eye(s), double vision, erythema, eye pain, loss of vision or other ENT HEENT: Denies abnormal hearing, dysphagia, ear pain, epistaxis, headache(s), hearing loss, nasal congestion, nasal discharge, post nasal drip, sinus pressure, sore throat or other Cardiovascular Cardiovascular: Reports dyspnea on exertion; Denies chest pain, claudication, edema, lightheadedness, orthopnea, palpitations, paroxysmal nocturnal dyspnea, rapid heart rate, syncope or other Respiratory/Chest Respiratory/Chest: Reports cough, dyspnea, productive cough and shortness of breath with exertion; Denies excessive phlegm production, hemoptysis, shortness of breath at rest, wheezing or other Gastrointestinal Gastrointestinal: Denies abdominal pain, coffee ground emesis, constipation, diarrhea, dyspepsia, hematemesis, hematochezia, loose stools, melena, nausea, vomiting or other Genitourinary Genitourinary: Denies burning urination, difficulty urinating, dysuria, hematuria, nocturia, urinary frequency, urinary hesitancy, urinary incontinence, urinary urgency or other Musculoskeletal Musculoskeletal: Denies arthralgias, back pain, joint pain, joint stiffness, joint swelling, myalgias, neck pain or other Neurologic Neurologic: Denies abnormal gait, abnormal speech, confusion, disequilibrium, dizziness, focal weakness, headache(s), numbness, paresthesias, seizure-like activity, seizures, syncope, tingling, tremor(s) or other Psychiatric Psychiatric: Denies anxiety, depression, homicidal ideation, suicidal ideation or other Endocrine Endocrinology: Denies change in body appearance, cold intolerance, excessive sweating, heat intolerance, polydipsia, polyuria or other Hematologic/Lymphatic Hematologic/Lymphatic: Reports easy bruising; Denies anemia, easy bleeding, lymphadenopathy or other Allergic/Immunologic Allergic/Immunologic: Denies rhinitis, hives, eczemia, asthma or other Vital Signs Vital Signs Vital Signs: 05/02/23 10:42 05/02/23 11:08 05/02/23 11:08 Temperature 100.4 F H Temperature Source Temporal Pulse Rate 93 94 Respiratory Rate 14 22 H Respiratory Effort Respiratory Pattern Blood Pressure 125/57 H 118/69 Blood Pressure Mean 79 85 Pulse Ox 90 87 92 Oxygen Delivery Method Room Air Room Air Nasal Cannula Oxygen Flow Rate (L/min) 2 05/02/23 11:13 05/02/23 11:11 05/02/23 13:16 Temperature Temperature Source Pulse Rate 92 80 Respiratory Rate 18 18 Respiratory Effort Short of Breath Respiratory Pattern Tachypnea Normal Blood Pressure 117/68 Blood Pressure Mean 84 Pulse Ox 89 Oxygen Delivery Method Nasal Cannula Oxygen Flow Rate (L/min) 4 05/02/23 14:58 Temperature Temperature Source Pulse Rate 85 Respiratory Rate 22 H Respiratory Effort Respiratory Pattern Blood Pressure 105/91 H Blood Pressure Mean 95 Pulse Ox 92 Oxygen Delivery Method Nasal Cannula Oxygen Flow Rate (L/min) 4 Weight Weight: 83.915 kg Body Mass Index (BMI) 30.7 Physical Exam Const alert, oriented x3, no apparent distress and well nourished Constitutional Narrative: Obese, upper middle-aged white male, sitting up in bed, appears older than stated age, at bedside, appears comfortable and nontoxic General Appearance: cooperative HEENT normocephalic, head/scalp atraumatic, hearing grossly normal bilaterally and moist oral mucous membranes HEENT Narrative: Dentures in place, Mallampati 2-3, no thrush Eyes PERRL, EOMs intact bilaterally and conjunctivae normal Eyes Narrative: No scleral icterus Neck no lymphadenopathy, supple, no JVD and no carotid bruits Neck Narrative: Trachea midline no thyroid enlargement Resp normal respiratory effort, no retractions, no use of accessory muscles and clear to auscultation bilaterally Resp Narrative: Diffusely diminished but clear, absent breath sounds right base and midlung region Auscultation: Negative for rales, rhonchi or wheezes Cardio regular rate, regular rhythm, S1 normal heart sound, S2 normal heart sound, no murmurs, no rub, no gallops and no clicks GI normal to inspection, nondistended, normoactive bowel sounds, soft to palpation and non-tender Extremity no clubbing, cyanosis or edema Extremity Narrative: Pedal pulses are plus Skin No no rashes or lesions noted, no wounds, skin turgor normal, no jaundice, no petechiae and no mottling Skin Narrative: Right port [id number], no drainage or erythema, scattered ecchymosis on arms Neuro oriented x3, CN's II-XII intact bilaterally, moves all extremities and no focal motor deficits Speech: speech normal Motor Exam: strength 5/5 throughout Psych affect normal Psych Narrative: Very pleasant, appropriately interactive Results Lab / Micro Data Attestation: I reviewed the patient's lab results. Result Diagrams: 05/02/23 11:05 05/02/23 11:05 Labs: Laboratory Results - last 24 hr 05/02/23 11:05: WBC 5.5, RBC 4.49 L, Hgb 11.4 L, Hct 34.9 L, MCV 77.7 L, MCH 25.4 L, MCHC 32.7, RDW Std Deviation 48.4 H, RDW Coeff of Kailey 17.2 H, Plt Count 105 L, MPV 9.6, Neut % (Auto) Not Reportable, Absolute Neuts (auto) 4.6, Absolute Lymphs (auto) 0.44 L, Total Counted 100, Neutrophils % (Manual) 79 H, Band Neutrophils % 4, Lymphocytes % (Manual) 8 L, Monocytes % (Manual) 2, Metamyelocytes % 3 H, Myelocytes % 4 H, Diff Path Review March, Platelet Estimate ADEQUATE, RBC Morphology NORM C+C 05/02/23 11:05: Sodium 132 L, Potassium 3.7, Chloride 104, Carbon Dioxide 19.0 L, Anion Gap 9, BUN 18, Creatinine 0.97, Estim Creat Clear Calc 62.52, Est GFR (MDRD) Af Amer 99, Est GFR (MDRD) Non-Af 82, BUN/Creatinine Ratio 18.6, Glucose 169 H, Calcium 8.9, Troponin I High Sens 11 05/02/23 11:05: Lactic Acid 1.8 05/02/23 11:05: B-Natriuretic Peptide 34.6 Micro: Microbiology 05/02/23 12:16 Nasal Secretion SARS-CoV-2 Antigen (Rapid) - Final Rhythm Strip Rhythm Strip: Sinus Rhythm Rate: 90 Ectopy: None Radiology Impression Chest X-Ray 05/02/23 10:55 IMPRESSION: 2 cm left retrocardiac opacity, possible focus of infection or large pulmonary nodule. Recommend follow-up to resolution or CT. Mild right basilar atelectasis with unchanged mild right pleural effusion. Electronically Signed: Jesusita Borges MD at 12:32 EDT , Chest CTA 05/02/23 12:01 IMPRESSION: No evidence of acute pulmonary embolism. Small chronic nonocclusive right lower lobar pulmonary embolism. New 3 mm spiculated right lower lobe nodule and left lower lobe pulmonary nodules measuring up to 8 mm, suspicious for metastases. Progression of mild mediastinal and hilar lymphadenopathy. Mild pneumonitis or atypical pneumonia with mosaic attenuation pattern and groundglass opacities with mild septal thickening most confluent in the left upper lobe inferiorly. Chronic scarring in the right lung with pleural thickening. Enhancing right renal mass. Left nephrectomy. Electronically Signed: Jesusita Broges MD at 13:17 EDT , Assessment & Plan Assessment/Plan (1) Hypoxemia: (2) SOB (shortness of breath): (3) Pulmonary emboli: (4) Hyperglycemia: PLAN: Plan Shortness of breath/hypoxia -Patient does not meet criteria for acute hypoxic respiratory failure -Etiology is unclear at this point--> infectious/Keytruda induced pneumonitis/COPD exacerbation however this seems less likely due to his baseline lung function -CT of the chest demonstrated small chronic nonocclusive right lower lobe pulmonary embolus, new 3 mm spiculated right lower lobe nodule and left lower lobe pulmonary nodules measuring 8 mm suspicious for metastasis, progression of mild mediastinal and hilar lymphadenopathy, mild pneumonitis, bronchiectasis -BNP is within normal limits -Currently requiring 4 L of supplemental oxygen -Does not require oxygen at baseline -Continue to wean as able -Low-grade fever present at 100.4 so will rule out infectious etiology -Check sputum culture if able -Respiratory viral panel -We will start Levaquin 750 mg p.o. daily -EKG shows normal QTc -IV steroids 40 every 8 and hold home Decadron -Transition back to Decadron at discharge -Aggressive pulmonary toilet -I-S/Acapella -Patient had echocardiogram done on January 13, 2023 that showed an EF of 65% and no evidence of diastolic dysfunction -Pulmonary medicine consult-discussed with Dr. Patel Right lower lobe nonocclusive PE -Start anticoagulation with Eliquis 10 mg p.o. twice daily for 7 days followed by 5 mg p.o. twice daily -Patient with microcytic anemia that is mild and stable -We will check guaiac and iron studies -Not likely etiology for acute shortness of breath and hypoxia -No signs of cardiac strain Hyperglycemia -Likely Decadron induced -Check hemoglobin A1c -Accu-Cheks -Sliding scale insulin -Patient is not diabetic at baseline Poorly differentiated adenocarcinoma of the lung/metastatic left renal cell carcinoma -Left radical nephrectomy 2005 -January 28, 2021--> [place] CT of chest showed spiculated partially cavitary mass in the right lower lobe--> CT-guided biopsy demonstrated moderately to poorly differentiated adenocarcinoma of the lung primary--> March 2021 VATS converted to right muscle-sparing thoracotomy with right lower lobectomy, right upper lobe wedge resection and right middle lobe wedge resection with mediastinal lymph node dissection (positive lymph nodes noted at this time)--> MRI October 2022 showed 1.6 cm enhancing mass in the left posterior parietal lobe concerning for hemorrhagic metastasis and large surrounding edema--> follow-up MRI December 16, 2022 shows increasing size of metastatic mass in the left posterior parietal lobe--> CT of chest abdomen pelvis December 29, 2022 showed persistent solid mass in the lower pole of the right kidney with slight increase in size since August, chronic interstitial changes in both lungs--> follow-up MRI January 2023 shows persistent hemorrhagic metastasis--> follow-up chest abdomen pelvis CT March 13, 2023 shows an enlarged right posterior mediastinal lymph node and stable 4.2 cm right renal mass--> MRI brain March 2023 shows doubling in size of mass in the posterior medial aspect of the left parietal lobe with surrounding vasogenic edema that had slightly increased and no further metastatic lesions--> MRI spectroscopy April 16, 2023 showed spectroscopy and perfusion findings medial and dorsal aspects of the treated presumed left parietal metastasis compatible with viable tumor with more extensive surrounding radiation necrosis - May 07, 2021 pembrolizumab plus axitinib for metastatic RCC/Axitinib discontinued May 2021 due to hypertensive crisis -Keytruda single agent May 07 ?July 30,? 2020 (5 cycles)? MO but held in August 2021 due to ELANA.? Resumed November 26, 2021 -Stereotactic brain radiation at [place] October 28, 2022 a single fraction with 10 MV photons. -CT of chest at this time shows new findings in the lung -Consult pulmonary medicine -With regards to brain metastasis patient has a ointment with neurosurgery on Thursday in [place] -Will likely need to be canceled and rescheduled -Holding Decadron while on IV Solu-Medrol -Most recent oncology notes reviewed CAD/hypertension/hyperlipidemia -[id number] w/ 2.25 x 18 mm Biodivysio Stent x 2, BMS-OM1 w/ 2.25 x 18 mm Biodivysio Stent and 2.25 x 18 mm Pixel Stent and MARVIN-Prox LCx w/ 3.5 x 18 mm Cypher Stent 07/17/2003 -Continue home aspirin -Continue home amlodipine -continue home carvedilol -Continue home rosuvastatin -Continue home hydralazine Microcytic anemia -Hemoglobin is stable with no signs of acute bleeding -Has had iron deficiency in the past and received IV iron -We will check iron studies and stool guaiac with initiation of anticoagulation for pulmonary embolism Thrombocytopenia -Appears to be chronic -Likely related to ongoing chemotherapy and cancer treatment -Counts are stable and greater than 100,000 Aortic valve stenosis -Mild -No acute issues -Most recent echocardiogram shows stability COPD -PFTs show only mild large airway obstructive ventilatory defect -O2 dependent at baseline -No exertional hypoxemia noted on 6-minute walk test earlier this year -Continued outpatient follow-up with pulmonary medicine after discharge DVT prophylaxis -Fully anticoagulated with Eliquis CODE STATUS -Full code verified on admission Charges/Coding Visit Charges Inpatient E&M: 43509 Init Hosp L3
[2023-05-02] MEDS: levoFLOXacin IV 750 MG/150 ML BAG 100 MG IV (15:33)
[2023-05-02 16:51] LABS: Ferritin 969 ng/mL (26-388); Iron 31 ug/dL (65-175); Iron Binding Capacity,Total 364 ug/dL (250-450); PERCENT IRON SATURATION 8.5 % (15.0-55.0)
[2023-05-02] MEDS: Insulin Lispro 100 UNIT/ML INSULN.PEN SC (18:01)
[2023-05-02] MEDS: Methylprednisolone Sod Succ 40 MG/ML VIAL IV (18:01)
[2023-05-02] MEDS: APIXABAN 5 MG TABLET 10 MG PO (18:03)
[2023-05-02] MEDS: guaiFENesin 1,200 MG Tablet 1200 MG PO (18:03)
[2023-05-02 18:27] LABS: Bedside Glucose 183 mg/dL (74-106)
[2023-05-02 18:58] LABS: Hemoglobin A1c 7.4 % (3.8-5.6)
[2023-05-02] MEDS: ROSUVASTATIN CALCIUM 40 MG TABLET PO (20:57)
[2023-05-02] MEDS: hydrALAZINE 50 MG Tablet PO (20:57)
[2023-05-02] MEDS: Carvedilol 25 MG Tablet PO (20:57)
[2023-05-03] VITALS (17 sets, daily range): BP systolic 108–145; BP diastolic 56–72; PULSE 74–105; RESP 12–24; TEMP 36.4–36.7; O2SAT 91–95
[2023-05-03] MEDS: Ipratropium/Albuterol Sulfate 3 ML AMPUL.NEB INHALATION ×6 (03:35→22:54)
[2023-05-03] MEDS: levoFLOXacin 750 MG Tablet PO (05:43)
[2023-05-03] MEDS: 0.9% Saline Lock 10 ML Syringe IV ×2 (05:44→21:56)
[2023-05-03] MEDS: Insulin Lispro 100 UNIT/ML INSULN.PEN SC ×3 (05:44→17:08)
[2023-05-03] MEDS: Methylprednisolone Sod Succ 40 MG/ML VIAL IV ×3 (05:44→21:54)
[2023-05-03 06:13] LABS: Hematocrit 31.7 % (40-54); Hemoglobin 10.6 g/dL (13.0-16.5); Mean Corp Hgb Conc 33.4 g/dL (32-36); Mean Corpuscular Hgb 25.4 pg (27.0-32.0); Mean Platelet Vol. 9.5 fl (6.2-12.0); POSITIVE COUNT YES; POSITIVE DIFFERENTIAL YES; POSITIVE MORPHOLOGY YES; Platelet Count 105 K/mm3 (150-450); RBC Distribution Width CV 16.8 % (11.6-14.6); RBC Distribution Width SD 46.1 fl (35.1-43.9); Red Blood Count 4.17 M/mm3 (4.6-6.2); White Blood Count 3.4 K/mm3 (4.4-11.0)
[2023-05-03 06:23] LABS: Bedside Glucose 197 mg/dL (74-106)
[2023-05-03 06:36] LABS: Differential Indicated MANUAL DIFF
[2023-05-03 06:41] LABS: Metamyelocyte 2 % (0-1); Monocyte 2 % (0-10); Myelocyte 4 % (0-0); Neutrophil-Band 12 % (0-5); Neutrophil-Segmented 67 % (47-70); Total Cells Counted 100 (MANUAL DIFF)
[2023-05-03 06:42] LABS: Basophil 1 % (0-1); Lymphocyte 12 % (19-41); Platelet Estimate SLT DEC (ADEQ)
[2023-05-03 06:43] LABS: Absolute Neutrophil Count 2.7 X10^3/uL (2.0-7.7); Neutrophil # 2.66 X10^3/uL (2.7-7.7); Red Cell Morphology NORM C+C NORMAL (NORM C&C)
[2023-05-03 06:56] LABS: ALB/GLOB Ratio 0.8 RATIO (0.9-2.4); AST(SGOT) 30 U/L (15-37); Alanine Aminotransfer ALT/SGPT 23 U/L (16-61); Albumin, Serum 2.5 g/dL (3.2-5.0); Alkaline Phosphatase 46 U/L (45-117); Anion Gap 9 (5-15); BUN 21 mg/dL (7-18); BUN/Creat Ratio 27.9 RATIO (10-20); Calcium,Total 8.6 mg/dL (8.5-10.1); Chloride 106 mmol/L (98-107); Creatinine, Serum 0.75 mg/dL (0.70-1.30); EST Glomerular Filtration Rate 109 mL/min (>60); Est Glom Filt Rate - Afr Amer 132 mL/min (>60); Estimated Creatinine Clearance 60.65 ml/min; Globulin 3.3 g/dL (2.2-4.2); Glucose 204 mg/dL (74-106); Magnesium 2.2 mg/dL (1.6-2.6); Potassium 3.7 mmol/L (3.5-5.1); Protein, Total 5.8 g/dL (6.4-8.2); Sodium Level 135 mmol/L (136-145); Thyroid Stim Hormone (TSH) 0.67 uIU/mL (0.358-3.74)
--- NOTE | 2023-05-03 07:40 | EX.PCM.CONCC ---
Assessment & Plan Assessment/Plan (1) SOB (shortness of breath): (2) COPD (chronic obstructive pulmonary disease): (3) 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: (4) Pulmonary emboli: PLAN: Plan RECOMMENDATIONS: 1. Continue steroids, bronchodilators and antibiotics 2. Wean oxygen as tolerated 3. Increase activity as tolerated 4. Aggressive pulmonary toileting 5. Agree with systemic anticoagulation IMPRESSIONS: 1. Acute hypoxic respiratory insufficiency Unclear etiology. Patient does have scattered groundglass opacities consistent with pneumonitis more than acute lobar pneumonia. However, patient also has bronchiectasis, so pseudomonal or staph pneumonia would be a concern. However, this tends to be lumbar. Patient has relatively normal cardiac function with a normal BNP, so CHF is less likely. Chemical pneumonitis secondary to chemotherapy versus environmental inhalation of pool chemicals may also be contributing. Patient does have a nonocclusive PE, but did not have significant elevated pulmonary artery pressures to suggest CTEPH. Patient does appear to be improving on current therapy. No changes indicated at this time. 2. 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 Patient remains aggressive. Likely okay to continue with Keytruda for now, but chemical pneumonitis would be a concern. Patient reportedly is to see a neurosurgeon for brain metastasis next week. Patient's primary protective services officer is Dr. Malcolm and he is here tomorrow. 3. Microcytic anemia/aortic valve stenosis/CAD/COPD/hyperglycemia/chronic steroids Complicates care, management, recovery and prognosis. Likely okay to continue with baseline medications. Clinical suspicion for hyperglycemia secondary to steroids. Sliding scale insulin is likely appropriate. No indication for transfusion at this time. Despite poor long-term prognosis, patient does wish to be aggressive at this time. HPI Consult Data Date of Consult: 05/03/23 HPI Narrative Reason for Consultation: COPD exacerbation HPI Narrative: KENN IRAHETA is a 67 M, with past medical history listed below, who presents to [facility] on 05/02/2023 secondary to a 2-week history of cough productive of clear sputum. Patient has had some mild hemoptysis initially, but this resolved over 3 days. Patient did report a temporal relationship chemicals. Patient did have a low-grade fever with subjective chills. Patient denied any lower extremity swelling or chest pain. Patient does receive Keytruda for metastatic renal cancer. Patient states she is to see the radiation oncologist tomorrow secondary to brain mets. Patient is not on oxygen at baseline and reportedly his COPD is very mild. In the ER, patient was noted to have a temperature of 100.4 ?F, but was normotensive and saturating 87% on room air. Patient responded to minimal nasal cannula oxygen. Laboratory work-up showed a white blood cell count of 5.5, hemoglobin of 11.4 and platelets of 105. Chemistries showed a bicarbonate of 19 with normal renal function and a glucose of 169. Lactate was within normal limits. BNP was 35. Chest x-ray showed a possible retrocardiac opacity and this was subsequently followed up by CTA of the chest showing nodules suspicious for metastasis and groundglass opacities. Patient was placed on antibiotics, supplemental oxygen, bronchodilators and admitted to the floor for further evaluation. Overnight, patient feels subjectively much improved compared to previous. Patient states that he has had a cough with no to mild production of clear sputum. Patient is not reporting any fevers overnight. Patient feels like he has better energy today. Patient does admit that he has been using a Rototiller recently and feels that this may have also exacerbated his respiratory status. Patient does not report any problems with chemotherapy. Review of systems otherwise negative from a constitutional, HEENT, respiratory, cardiovascular, GI, genitourinary, musculoskeletal, skin, neurologic, psychiatric and hematologic system unless stated above. [facility] Medical History Abnormal colonoscopy Adenocarcinoma of right lung Alcohol use Anemia Atherosclerotic heart disease of [place] coronary artery without angina pectoris 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 Contact with or suspected exposure to other viral communicable disease COPD (chronic obstructive pulmonary disease) COVID-19 Dyspnea Easy bruising Elevated troponin (05/15/21) Encephalopathy (05/15/21) Encounter for immunotherapy Encounter for immunotherapy Epistaxis Essential (primary) hypertension Former smoker Frequent headaches Gastric reflux History of primary malignant neoplasm of left kidney Hx of radiation therapy Hyperlipidemia Hyponatremia Imbalance Iron deficiency anemia due to chronic blood loss 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 Nonrheumatic aortic (valve) stenosis with insufficiency Pneumonia Port-A-Cath in place Seizure (05/15/21) Sinus congestion Skin cancer Thrombocytopenia Wears dentures Wears glasses Home Medications aspirin 81 mg tablet,delayed release 81 mg PO DAILY HEART HEALTH 08/18/18 [History Last Taken 06/13/21] rosuvastatin 40 mg tablet (Crestor) 40 mg PO DAILY CHOLESTEROL 08/18/18 [History Last Taken 06/12/21] carvedilol 25 mg tablet 25 mg PO BID blood pressure 04/30/21 [History Last Taken 06/13/21] albuterol sulfate 90 mcg/actuation aerosol inhaler 1 puff inhalation Q6H PRN SOB 05/31/21 [History Last Taken 06/12/21] hydralazine 50 mg tablet 50 mg PO BID diuretic 05/31/21 [History Last Taken 06/13/21] lidocaine-prilocaine 2.5 %-2.5 % topical cream 1 applic topical ONCE PRN Port access 30 days #30 grams 01/28/22 [Rx Last Taken Unknown] amlodipine 10 mg tablet 10 mg PO DAILY Check with primary doctor 11/19/22 [History Last Taken Unknown] esomeprazole magnesium 20 mg capsule,delayed release (Nexium) 20 mg PO DAILY #30 caps 11/21/22 [Rx Last Taken Unknown] ipratropium 0.5 mg-albuterol 3 mg (2.5 mg base)/3 mL nebulization soln 3 ml inhalation Q4H PRN shortness of breath or wheezing #180 mL 11/24/22 [Rx Last Taken Unknown] dexamethasone 4 mg tablet 2 mg PO DAILY steroid 05/02/23 [History Last Taken Unknown] Allergy/AdvReac Type Severity Reaction Status Date / Time No Known Allergies Allergy Verified 05/02/23 10:44 Family History Sister Diabetes CAD (coronary artery disease) Mother CVA (cerebral vascular accident) CAD (coronary artery disease) Lung cancer Father CAD (coronary artery disease) Brother CAD (coronary artery disease) Surgical History History of coronary angioplasty (01/05/04) History of coronary artery stent placement (07/17/03) History of lobectomy of lung History of nephrectomy, left Social History Smoking Status: Former smoker Tobacco: How many years used: 40 second hand exposure: No alcohol intake: current alcohol intake frequency: a few times a month Alcohol type: beer substance use type: does not use seatbelt use: always do you feel safe at home: Yes ROS ROS Narrative See HPI Physical Exam Const alert, oriented x3, no apparent distress and well nourished Constitutional Narrative: No conversational dyspnea appreciated General Appearance: cooperative HEENT normocephalic, head/scalp atraumatic, hearing grossly normal bilaterally and moist oral mucous membranes HEENT Narrative: Dentures noted Eyes PERRL, EOMs intact bilaterally and conjunctivae normal Eyes Narrative: No scleral icterus Neck no lymphadenopathy, supple, no JVD and no carotid bruits General: trachea midline Chest inspection of chest normal Chest Narrative: No pain to palpation Resp normal respiratory effort, no retractions, no use of accessory muscles and clear to auscultation bilaterally Resp Narrative: Patient receiving aerosol during my evaluation Auscultation: diminished lung sounds; Negative for rales, rhonchi or wheezes Cardio regular rate, regular rhythm, S1 normal heart sound, S2 normal heart sound, no murmurs, no rub, no gallops and no clicks GI normal to inspection, nondistended, normoactive bowel sounds, soft to palpation and non-tender Extremity no clubbing, cyanosis or edema Skin No no rashes or lesions noted, no wounds, skin turgor normal, no jaundice, no petechiae and no mottling Skin Narrative: Right port [id number], no drainage or erythema, scattered ecchymosis on arms Neuro oriented x3, CN's II-XII intact bilaterally, moves all extremities and no focal motor deficits Psych affect normal Psych Narrative: Very pleasant, appropriately interactive Medical Records Data Attestation: I reviewed the patient's medical records Lab / Micro Data Attestation: I reviewed the patient's lab results. Result Diagrams: 05/03/23 05:21 05/03/23 05:21 Labs: Laboratory Results - last 24 hr 05/02/23 11:05: WBC 5.5, RBC 4.49 L, Hgb 11.4 L, Hct 34.9 L, MCV 77.7 L, MCH 25.4 L, MCHC 32.7, RDW Std Deviation 48.4 H, RDW Coeff of Kaiely 17.2 H, Plt Count 105 L, MPV 9.6, Neut % (Auto) Not Reportable, Absolute Neuts (auto) 4.6, Absolute Lymphs (auto) 0.44 L, Total Counted 100, Neutrophils % (Manual) 79 H, Band Neutrophils % 4, Lymphocytes % (Manual) 8 L, Monocytes % (Manual) 2, Metamyelocytes % 3 H, Myelocytes % 4 H, Diff Path Review May foll, Platelet Estimate ADEQUATE, RBC Morphology NORM C+C 05/02/23 11:05: Sodium 132 L, Potassium 3.7, Chloride 104, Carbon Dioxide 19.0 L, Anion Gap 9, BUN 18, Creatinine 0.97, Estim Creat Clear Calc 62.52, Est GFR (MDRD) Af Amer 99, Est GFR (MDRD) Non-Af 82, BUN/Creatinine Ratio 18.6, Glucose 169 H, Calcium 8.9, Troponin I High Sens 11 05/02/23 11:05: Lactic Acid 1.8 05/02/23 11:05: B-Natriuretic Peptide 34.6 05/02/23 11:05: Iron 31 L, TIBC 364, Iron Saturation 8.5 L, Ferritin 969 H 05/02/23 17:57: POC Glucose 183 H 05/02/23 18:03: Hemoglobin A1c 7.4 H 05/03/23 05:21: WBC 3.4 L, RBC 4.17 L, Hgb 10.6 L, Hct 31.7 L, MCV 76.0 L, MCH 25.4 L, MCHC 33.4, RDW Std Deviation 46.1 H, RDW Coeff of Kailey 16.8 H, Plt Count 105 L, MPV 9.5, Neut % (Auto) Not Reportable, Absolute Neuts (auto) 2.7, Absolute Lymphs (auto) 0.40 L, Total Counted 100, Neutrophils % (Manual) 67, Band Neutrophils % 12 H, Lymphocytes % (Manual) 12 L, Monocytes % (Manual) 2, Basophils % (Manual) 1, Metamyelocytes % 2 H, Myelocytes % 4 H, Diff Path Review May foll, Platelet Estimate SLT DEC, RBC Morphology NORM C+C 05/03/23 05:21: Sodium 135 L, Potassium 3.7, Chloride 106, Carbon Dioxide 20.0 L, Anion Gap 9, BUN 21 H, Creatinine 0.75, Estim Creat Clear Calc 60.65, Est GFR (MDRD) Af Amer 132, Est GFR (MDRD) Non-Af 109, BUN/Creatinine Ratio 27.9 H, Glucose 204 H, Calcium 8.6, Phosphorus 4.0, Magnesium 2.2, Total Bilirubin 0.40, AST 30, ALT 23, Alkaline Phosphatase 46, Total Protein 5.8 L, Albumin 2.5 L, Globulin 3.3, Albumin/Globulin Ratio 0.8 L, TSH 0.67 05/03/23 05:39: POC Glucose 197 H Micro: Microbiology 05/02/23 17:15 Mucosa - Nasopharyngeal Respiratory Panel (PCR) - Final 05/02/23 12:16 Nasal Secretion SARS-CoV-2 Antigen (Rapid) - Final Rhythm Strip Rhythm Strip: Sinus Rhythm Rate: 90 Ectopy: None Radiology Impression Chest X-Ray 05/02/23 10:55 IMPRESSION: 2 cm left retrocardiac opacity, possible focus of infection or large pulmonary nodule. Recommend follow-up to resolution or CT. Mild right basilar atelectasis with unchanged mild right pleural effusion. Electronically Signed: Jesusita Borges MD at 12:32 EDT , Chest CTA 05/02/23 12:01 IMPRESSION: No evidence of acute pulmonary embolism. Small chronic nonocclusive right lower lobar pulmonary embolism. New 3 mm spiculated right lower lobe nodule and left lower lobe pulmonary nodules measuring up to 8 mm, suspicious for metastases. Progression of mild mediastinal and hilar lymphadenopathy. Mild pneumonitis or atypical pneumonia with mosaic attenuation pattern and groundglass opacities with mild septal thickening most confluent in the left upper lobe inferiorly. Chronic scarring in the right lung with pleural thickening. Enhancing right renal mass. Left nephrectomy. Electronically Signed: Jesusita Borges MD at 13:17 EDT , Charges/Coding Visit Charges Inpatient E&M: 61129 Init Hosp L3
[2023-05-03] MEDS: hydrALAZINE 50 MG Tablet PO ×2 (10:32→21:55)
[2023-05-03] MEDS: Carvedilol 25 MG Tablet PO ×2 (10:32→21:54)
[2023-05-03] MEDS: Aspirin E.C. 81 MG Tablet PO (10:33)
[2023-05-03] MEDS: APIXABAN 5 MG TABLET 10 MG PO (10:33)
[2023-05-03] MEDS: Pantoprazole Sodium 20 MG Tablet PO (10:33)
[2023-05-03] MEDS: guaiFENesin 1,200 MG Tablet 1200 MG PO ×2 (10:33→21:54)
[2023-05-03] MEDS: amLODIPine 10 MG Tablet PO (10:34)
--- NOTE | 2023-05-03 11:42 | CON.PCM.GI_ITS ---
HPI Consult Data Date of Consult: 05/03/23 HPI Narrative Reason for Consultation: Anemia fecal occult positive stools HPI Narrative: KENN IRAHETA, is a 67 M who who presented to the emergency department at [facility] on 05/02/2023 complaining of shortness of breath.? Patient reports this has been ongoing for about the last 2 weeks but worsening as of recently.? He has had low-grade temperatures at home and complains of feeling chilled.? He is currently undergoing treatment for metastatic renal cell carcinoma and has a history of moderately to poorly differentiated adenocarcinoma of the right lung for which she has had previous lung resection.? Patient is not oxygen dependent at baseline but currently requiring 3 to 4 L supplemental nasal cannula.? He is on Keytruda for his metastatic renal cell carcinoma. In the ER, patient was noted to have a temperature of 100.4 ?F, but was normotensive and saturating 87% on room air.? Patient responded to minimal nasal cannula oxygen.? Laboratory work-up showed a white blood cell count of 5.5, hemoglobin of 11.4 and platelets of 105.? Chemistries showed a bicarbonate of 19 with normal renal function and a glucose of 169.? Lactate was within normal limits.? BNP was 35.? Chest x-ray showed a possible retrocardiac opacity and this was subsequently followed up by CTA of the chest showing nodules suspicious for metastasis and groundglass opacities.? Patient was placed on antibiotics, supplemental oxygen, bronchodilators and admitted to the floor for further evaluation. CT of the chest also showed pulmonary embolism. He was started coagulation. However his hemoglobin started to drop. His stools were checked and they were positive for blood. I was consulted for management of acute blood loss anemia. [facility] Medical History (Updated 05/04/23 @ 12:[address] Rodriguez Friend, DO) Abnormal colonoscopy Adenocarcinoma of right lung Alcohol use Anemia Atherosclerotic heart disease of [place] coronary artery without angina pectoris 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 Contact with or suspected exposure to other viral communicable disease COPD (chronic obstructive pulmonary disease) COVID-19 Diabetes mellitus, type 2 Dyspnea Easy bruising Elevated troponin (05/15/21) Encephalopathy (05/15/21) Encounter for immunotherapy Encounter for immunotherapy Epistaxis Essential (primary) hypertension Former smoker Frequent headaches Gastric reflux History of primary malignant neoplasm of left kidney Hx of radiation therapy Hyperlipidemia Hyponatremia Imbalance Iron deficiency anemia due to chronic blood loss 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 Nonrheumatic aortic (valve) stenosis with insufficiency Pneumonia Port-A-Cath in place Seizure (05/15/21) Sinus congestion Skin cancer Thrombocytopenia Wears dentures Wears glasses Home Medications aspirin 81 mg tablet,delayed release 81 mg PO DAILY HEART HEALTH 08/18/18 [History Last Taken 06/13/21] rosuvastatin 40 mg tablet (Crestor) 40 mg PO DAILY CHOLESTEROL 08/18/18 [History Last Taken 06/12/21] carvedilol 25 mg tablet 25 mg PO BID blood pressure 04/30/21 [History Last Taken 06/13/21] albuterol sulfate 90 mcg/actuation aerosol inhaler 1 puff inhalation Q6H PRN SOB 05/31/21 [History Last Taken 06/12/21] hydralazine 50 mg tablet 50 mg PO BID diuretic 05/31/21 [History Last Taken 06/13/21] lidocaine-prilocaine 2.5 %-2.5 % topical cream 1 applic topical ONCE PRN Port access 30 days #30 grams 01/28/22 [Rx Last Taken Unknown] amlodipine 10 mg tablet 10 mg PO DAILY Check with primary doctor 11/19/22 [History Last Taken Unknown] esomeprazole magnesium 20 mg capsule,delayed release (Nexium) 20 mg PO DAILY #30 caps 11/21/22 [Rx Last Taken Unknown] ipratropium 0.5 mg-albuterol 3 mg (2.5 mg base)/3 mL nebulization soln 3 ml inhalation Q4H PRN shortness of breath or wheezing #180 mL 11/24/22 [Rx Last Taken Unknown] dexamethasone 4 mg tablet 2 mg PO DAILY steroid 05/02/23 [History Last Taken Unknown] Allergy/AdvReac Type Severity Reaction Status Date / Time No Known Allergies Allergy Verified 05/02/23 10:44 Family History Sister Diabetes CAD (coronary artery disease) Mother CVA (cerebral vascular accident) CAD (coronary artery disease) Lung cancer Father CAD (coronary artery disease) Brother CAD (coronary artery disease) Surgical History History of coronary angioplasty (01/05/04) History of coronary artery stent placement (07/17/03) History of lobectomy of lung History of nephrectomy, left Social History Smoking Status: Former smoker Tobacco: How many years used: 40 second hand exposure: No alcohol intake: current alcohol intake frequency: a few times a month Alcohol type: beer substance use type: does not use seatbelt use: always do you feel safe at home: Yes ROS ROS Narrative See HPI Physical Exam Const alert and no apparent distress Constitutional Narrative: Sitting in bedside recliner. General Appearance: cooperative HEENT normocephalic, head/scalp atraumatic and moist oral mucous membranes Eyes PERRL, EOMs intact bilaterally and conjunctivae normal Neck supple General: trachea midline Chest inspection of chest normal Resp normal respiratory effort Auscultation: diminished lung sounds; Negative for rales, rhonchi or wheezes Cardio regular rate and regular rhythm GI normal to inspection, nondistended, normoactive bowel sounds Extremity no clubbing, cyanosis or edema Skin no rashes or lesions noted Neuro oriented x3, CN's II-XII intact bilaterally and moves all extremities Psych cooperative and affect normal Lab / Micro Data Result Diagrams: 05/04/23 05:40 05/04/23 05:40 Labs: Laboratory Results - last 24 hr 05/03/23 11:33: POC Glucose 338 H 05/03/23 16:39: POC Glucose 233 H 05/03/23 21:47: POC Glucose 318 H 05/04/23 05:40: WBC 4.4, RBC 3.82 L, Hgb 10.1 L, Hct 29.0 L, MCV 75.9 L, MCH 26.4 L, MCHC 34.8, RDW Std Deviation 45.2 H, RDW Coeff of Kailey 16.7 H, Plt Count 110 L, MPV 9.1, Neut % (Auto) Not Reportable, Absolute Neuts (auto) 4.0, Absolute Lymphs (auto) 0.17 L, Total Counted 100, Neutrophils % (Manual) 86 H, Band Neutrophils % 6 H, Lymphocytes % (Manual) 4 L, Monocytes % (Manual) 3, Myelocytes % 1 H, Diff Path Review May foll, Platelet Estimate SLT DEC, Anisocytosis 1+, Microcytosis 1+ 05/04/23 05:40: Sodium 135 L, Potassium 3.7, Chloride 109 H, Carbon Dioxide 18.0 L, Anion Gap 8, BUN 26 H, Creatinine 0.94, Estim Creat Clear Calc 64.52, Est GFR (MDRD) Af Amer 102, Est GFR (MDRD) Non-Af 84, BUN/Creatinine Ratio 27.7 H, Glucose 250 H, Calcium 8.8 05/04/23 05:40: PT 15.5 H, INR 1.2, APTT 38.0 H 05/04/23 06:00: POC Glucose 236 H 05/04/23 10:33: Procalcitonin 0.10 H 05/04/23 11:16: POC Glucose 189 H Micro: Microbiology 05/03/23 03:50 Sputum, Expectorated/Coughed Gram Stain - Final 05/03/23 03:50 Sputum, Expectorated/Coughed Respiratory Culture - Preliminary Appears to be normal respiratory laure. Further studies to follow. 05/03/23 06:35 Stool Stool Occult Blood (CRYSTAL) - Final Occult Blood Positive Rhythm Strip Rhythm Strip: Sinus Rhythm Rate: 90 Ectopy: None Assessment & Plan Assessment/Plan (1) GI bleed: (2) Anemia: QUALIFIERS: Anemia type: iron deficiency Iron deficiency anemia type: unspecified iron deficiency Qualified Code(s): D50.9 - Iron deficiency anemia, unspecified PLAN: Plan 67-year-old gentleman with history of metastatic renal cell carcinoma to the lungs and brain (on steroids) status post VATS surgery, chemotherapy, on Keytruda who develops worsening shortness of breath and discovered to have pneumonia and pulmonary emboli. He was also discovered to have worsening iron deficiency anemia with decrease in blood count after undergoing anticoagulation. Recommendation: PPI drip , hold anticoagulation ,upper endoscopy to evaluate his upper GI tract. He was explained alternatives, risk, benefits include not withstanding bleeding, infection, sepsis, perforation, need for emergent surgery . He will have an ASA of 3. Charges/Coding Visit Charges Inpatient E&M: 39498 Init Hosp L3
[2023-05-03 11:56] LABS: Bedside Glucose 338 mg/dL (74-106)
--- NOTE | 2023-05-03 12:13 | PCM.PN.HOSP ---
Reason for Visit Reason for Visit: Shortness of breath Subjective Subjective Patient states she feels about 70% better since being admitted. Oxygen has been weaned from 4 to 2 L. Patient states he did just get up and move around and had significantly less shortness of breath than he had prior to being admitted. Objective Data Objective Data Vital Signs: Vital Signs Temp Pulse Resp BP Pulse Ox O2 Del Method O2 Flow Rate 97.8 F 88 18 145/70 H 95 Nasal Cannula 2 05/03/23 09:45 05/03/23 10:47 05/03/23 10:47 05/03/23 10:32 05/03/23 10:47 05/03/23 10:48 05/03/23 10:48 Oxygen Flow Rate (L/min) 2 Oxygen Delivery Method Nasal Cannula Weight: 74.843 kg Body Mass Index (BMI) 29.8 Intake & Output: Intake and Output for Last 24 Hours 05/01/23 05/02/23 05/03/23 23:59 23:59 23:59 Intake Total 250 / 250 Balance 250 / 250 Lab / Micro Data Result Diagrams: 05/03/23 05:21 05/03/23 05:21 Labs: Laboratory Results - last 24 hr 05/02/23 11:05: Iron 31 L, TIBC 364, Iron Saturation 8.5 L, Ferritin 969 H 05/02/23 17:57: POC Glucose 183 H 05/02/23 18:03: Hemoglobin A1c 7.4 H 05/03/23 05:21: WBC 3.4 L, RBC 4.17 L, Hgb 10.6 L, Hct 31.7 L, MCV 76.0 L, MCH 25.4 L, MCHC 33.4, RDW Std Deviation 46.1 H, RDW Coeff of Kailey 16.8 H, Plt Count 105 L, MPV 9.5, Neut % (Auto) Not Reportable, Absolute Neuts (auto) 2.7, Absolute Lymphs (auto) 0.40 L, Total Counted 100, Neutrophils % (Manual) 67, Band Neutrophils % 12 H, Lymphocytes % (Manual) 12 L, Monocytes % (Manual) 2, Basophils % (Manual) 1, Metamyelocytes % 2 H, Myelocytes % 4 H, Diff Path Review March, Platelet Estimate SLT DEC, RBC Morphology NORM C+C 05/03/23 05:21: Sodium 135 L, Potassium 3.7, Chloride 106, Carbon Dioxide 20.0 L, Anion Gap 9, BUN 21 H, Creatinine 0.75, Estim Creat Clear Calc 60.65, Est GFR (MDRD) Af Amer 132, Est GFR (MDRD) Non-Af 109, BUN/Creatinine Ratio 27.9 H, Glucose 204 H, Calcium 8.6, Phosphorus 4.0, Magnesium 2.2, Total Bilirubin 0.40, AST 30, ALT 23, Alkaline Phosphatase 46, Total Protein 5.8 L, Albumin 2.5 L, Globulin 3.3, Albumin/Globulin Ratio 0.8 L, TSH 0.67 05/03/23 05:39: POC Glucose 197 H 05/03/23 11:33: POC Glucose 338 H Micro: Microbiology 05/03/23 06:35 Stool Stool Occult Blood (CRYSTAL) - Final Occult Blood Positive 05/02/23 17:15 Mucosa - Nasopharyngeal Respiratory Panel (PCR) - Final 05/02/23 12:16 Nasal Secretion SARS-CoV-2 Antigen (Rapid) - Final Radiography Diagnostic Testing: Radiology Impression Chest X-Ray 05/02/23 10:55 IMPRESSION: 2 cm left retrocardiac opacity, possible focus of infection or large pulmonary nodule. Recommend follow-up to resolution or CT. Mild right basilar atelectasis with unchanged mild right pleural effusion. Electronically Signed: Jesusita Borges MD at 12:32 EDT Reading Location ID and State: [facility] / [place] Tel , Service support , Chest CTA 05/02/23 12:01 IMPRESSION: No evidence of acute pulmonary embolism. Small chronic nonocclusive right lower lobar pulmonary embolism. New 3 mm spiculated right lower lobe nodule and left lower lobe pulmonary nodules measuring up to 8 mm, suspicious for metastases. Progression of mild mediastinal and hilar lymphadenopathy. Mild pneumonitis or atypical pneumonia with mosaic attenuation pattern and groundglass opacities with mild septal thickening most confluent in the left upper lobe inferiorly. Chronic scarring in the right lung with pleural thickening. Enhancing right renal mass. Left nephrectomy. Electronically Signed: Jesusita Borges MD at 13:17 EDT , Rhythm Strip Rhythm Strip: Sinus Rhythm Rate: 90 Ectopy: None Physical Exam Const alert, oriented x3, no apparent distress and well nourished Constitutional Narrative: Obese, upper middle-aged white male, sitting up in a chair at the bedside, appears older than stated age, appears comfortable and nontoxic General Appearance: cooperative HEENT normocephalic, head/scalp atraumatic, hearing grossly normal bilaterally and moist oral mucous membranes HEENT Narrative: No thrush, Mallampati 3, dentures in place Eyes PERRL, EOMs intact bilaterally and conjunctivae normal Eyes Narrative: No scleral icterus Neck no lymphadenopathy, supple, no JVD and no carotid bruits Neck Narrative: Trachea midline no thyroid enlargement Resp normal respiratory effort, no retractions, no use of accessory muscles and clear to auscultation bilaterally Resp Narrative: Diffusely diminished but clear, absent breath sounds right base and midlung region, very few scattered wheezes Auscultation: wheezes; Negative for rales or rhonchi Cardio regular rate, regular rhythm, S1 normal heart sound, S2 normal heart sound, no murmurs, no rub, no gallops and no clicks GI normal to inspection, nondistended, normoactive bowel sounds, soft to palpation and non-tender Extremity no clubbing, cyanosis or edema Extremity Narrative: Pedal pulses are plus Skin No no rashes or lesions noted, no wounds, skin turgor normal, no jaundice, no petechiae and no mottling Skin Narrative: Right port [id number], no drainage or erythema, scattered ecchymosis on arms Neuro oriented x3, moves all extremities and no focal motor deficits Speech: speech normal Psych affect normal Psych Narrative: Very pleasant, appropriately interactive Assessment & Plan Assessment/Plan (1) Hypoxemia: (2) SOB (shortness of breath): (3) Pulmonary emboli: (4) Hyperglycemia: PLAN: Plan Shortness of breath/hypoxia -Patient does not meet criteria for acute hypoxic respiratory failure -Etiology is unclear at this point--> infectious/Keytruda induced pneumonitis/COPD exacerbation however this seems less likely due to his baseline lung function -CT of the chest demonstrated small chronic nonocclusive right lower lobe pulmonary embolus, new 3 mm spiculated right lower lobe nodule and left lower lobe pulmonary nodules measuring 8 mm suspicious for metastasis, progression of mild mediastinal and hilar lymphadenopathy, mild pneumonitis, bronchiectasis -BNP is within normal limits -Upon admission was on 4 L supplemental nasal cannula has been weaned to 2 L -Does not require oxygen at baseline -Continue to wean as able -Low-grade fever present at 100.4 so will rule out infectious etiology -Sputum cultures pending -Respiratory viral panel was unremarkable -Continue Levaquin 750 mg daily -EKG shows normal QTc -IV steroids 40 every 8 and hold home Decadron -Transition back to Decadron at discharge -Aggressive pulmonary toilet -I-S/Acapella -Patient had echocardiogram done on January 13, 2023 that showed an EF of 65% and no evidence of diastolic dysfunction -Pulmonary medicine following-appreciate input Right lower lobe nonocclusive PE -Hold anticoagulation--> patient with guaiac positive stool and drop in hemoglobin along with iron deficiency anemia -Not likely etiology for acute shortness of breath and hypoxia -No signs of cardiac strain DM-2 -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 -Left radical nephrectomy 2005 -January 28, 2021--> [place] CT of chest showed spiculated partially cavitary mass in the right lower lobe--> CT-guided biopsy demonstrated moderately to poorly differentiated adenocarcinoma of the lung primary--> March 2021 VATS converted to right muscle-sparing thoracotomy with right lower lobectomy, right upper lobe wedge resection and right middle lobe wedge resection with mediastinal lymph node dissection (positive lymph nodes noted at this time)--> MRI October 2022 showed 1.6 cm enhancing mass in the left posterior parietal lobe concerning for hemorrhagic metastasis and large surrounding edema--> follow-up MRI December 16, 2022 shows increasing size of metastatic mass in the left posterior parietal lobe--> CT of chest abdomen pelvis December 29, 2022 showed persistent solid mass in the lower pole of the right kidney with slight increase in size since August, chronic interstitial changes in both lungs--> follow-up MRI January 2023 shows persistent hemorrhagic metastasis--> follow-up chest abdomen pelvis CT March 13, 2023 shows an enlarged right posterior mediastinal lymph node and stable 4.2 cm right renal mass--> MRI brain March 2023 shows doubling in size of mass in the posterior medial aspect of the left parietal lobe with surrounding vasogenic edema that had slightly increased and no further metastatic lesions--> MRI spectroscopy April 16, 2023 showed spectroscopy and perfusion findings medial and dorsal aspects of the treated presumed left parietal metastasis compatible with viable tumor with more extensive surrounding radiation necrosis - May 07, 2021 pembrolizumab plus axitinib for metastatic RCC/Axitinib discontinued May 2021 due to hypertensive crisis -Keytruda single agent May 07 ?July 30,? 2020 (5 cycles)? [place] but held in August 2021 due to ELANA.? Resumed November 26, 2021 -Stereotactic brain radiation at [place] October 28, 2022 a single fraction with 10 MV photons. -CT of chest at this time shows new findings in the lung -Consult pulmonary medicine -With regards to brain metastasis patient has a ointment with neurosurgery on Thursday in [place] -Will likely need to be canceled and rescheduled -Holding Decadron while on IV Solu-Medrol -Most recent oncology notes reviewed CAD/hypertension/hyperlipidemia -CPX-HTR-STTF w/ 2.25 x 18 mm Biodivysio Stent x 2, BMS-OM1 w/ 2.25 x 18 mm Biodivysio Stent and 2.25 x 18 mm Pixel Stent and MARVIN-Prox LCx w/ 3.5 x 18 mm Cypher Stent 07/17/2003 -Hold home aspirin for now and restart when okay with GI -Continue home amlodipine -continue home carvedilol -Continue home rosuvastatin -Continue home hydralazine Microcytic anemia -1 g hemoglobin drop overnight -Hold anticoagulation -Consistent with iron deficiency -EGD for tomorrow -IV iron x3 days 200 mg -We will need to discharge on oral iron Thrombocytopenia -Appears to be chronic and is stable -Likely related to ongoing chemotherapy and cancer treatment -Counts are stable and greater than 100,000 Aortic valve stenosis -Mild -No acute issues -Most recent echocardiogram shows stability COPD -PFTs show only mild large airway obstructive ventilatory defect -O2 dependent at baseline -No exertional hypoxemia noted on 6-minute walk test earlier this year -Continued outpatient follow-up with pulmonary medicine after discharge DVT prophylaxis -Fully anticoagulated with Eliquis CODE STATUS -Full code verified on admission Charges/Coding Visit Charges Inpatient E&M: 31450 Subs Hosp L3
[2023-05-03] MEDS: Sodium Ferric Gluconat 250 MG in 0.9% Normal Saline 250 ML 135 MG IV (14:53)
[2023-05-03 17:08] LABS: Bedside Glucose 233 mg/dL (74-106)
[2023-05-03] MEDS: ROSUVASTATIN CALCIUM 40 MG TABLET PO (21:56)
[2023-05-03 22:21] LABS: Bedside Glucose 318 mg/dL (74-106)
[2023-05-04] VITALS (19 sets, daily range): BP systolic 82–138; BP diastolic 57–72; PULSE 76–88; RESP 16–22; TEMP 36.4–36.8; O2SAT 92–96
[2023-05-04] MEDS: Albuterol 2.5 MG/3 ML VIAL.NEB. INHALATION (04:35)
--- NOTE | 2023-05-04 05:00 | RAD_ITS ---
STUDY: X-RAY CHEST REASON FOR EXAM: Male, 67 years old. egd TECHNIQUE: Single AP portable view of the chest. COMPARISON: 05/02/2023. FINDINGS: Right indwelling catheter stable terminating about the level of the right hilum. There is hyperinflation of the lungs consistent with chronic obstructive lung disease (COPD). Stable mild scarring changes in both lower lung post. No definite infiltrates. No effusions. There is no demonstrated pleural abnormality. Normal size heart. Normal mediastinum and meelia. Normal visualized pulmonary arteries. Normal visualized aortic arch and descending thoracic aorta. Normal visualized thoracic spine. Normal visualized ribs, clavicles, and shoulders. There is no demonstrated abnormality of the visualized soft tissue structures of the upper abdomen. RAD/Chest 1 View (Portable) IMPRESSION: No definite acute or significant abnormality seen. Electronically Signed: Sami Gould MD at 17:12 EDT ,
[2023-05-04 05:57] LABS: Hemoglobin 10.1 g/dL (13.0-16.5); Mean Corp Hgb Conc 34.8 g/dL (32-36); Mean Corpuscular Hgb 26.4 pg (27.0-32.0); Mean Corpuscular Volume 75.9 fL (80-94); Mean Platelet Vol. 9.1 fl (6.2-12.0); POSITIVE COUNT YES; POSITIVE DIFFERENTIAL YES; POSITIVE MORPHOLOGY YES; Platelet Count 110 K/mm3 (150-450); RBC Distribution Width CV 16.7 % (11.6-14.6); RBC Distribution Width SD 45.2 fl (35.1-43.9); Red Blood Count 3.82 M/mm3 (4.6-6.2); White Blood Count 4.4 K/mm3 (4.4-11.0)
[2023-05-04] MEDS: Insulin Lispro 100 UNIT/ML INSULN.PEN SC ×2 (06:03→17:07)
[2023-05-04] MEDS: Methylprednisolone Sod Succ 40 MG/ML VIAL IV ×3 (06:04→22:30)
[2023-05-04] MEDS: 0.9% Saline Lock 10 ML Syringe IV ×2 (06:04→22:30)
[2023-05-04 06:14] LABS: International Normalized Ratio 1.2; Prothrombin Time (Protime)PT. 15.5 SECONDS (11.7-14.9)
[2023-05-04] MEDS: levoFLOXacin 750 MG Tablet PO (06:19)
[2023-05-04 06:22] LABS: Differential Indicated MANUAL DIFF
[2023-05-04 06:29] LABS: Anion Gap 8 (5-15); BUN 26 mg/dL (7-18); BUN/Creat Ratio 27.7 RATIO (10-20); Calcium,Total 8.8 mg/dL (8.5-10.1); Chloride 109 mmol/L (98-107); Creatinine, Serum 0.94 mg/dL (0.70-1.30); EST Glomerular Filtration Rate 84 mL/min (>60); Est Glom Filt Rate - Afr Amer 102 mL/min (>60); Estimated Creatinine Clearance 64.52 ml/min; Glucose 250 mg/dL (74-106); Potassium 3.7 mmol/L (3.5-5.1); Sodium Level 135 mmol/L (136-145)
[2023-05-04 06:32] LABS: Anisocytosis 1+; Microcytosis 1+; Platelet Estimate SLT DEC (ADEQ)
[2023-05-04 06:35] LABS: Absolute Lymphocyte Count 0.17 X10^3/uL (0.83-4.51); Lymphocyte 4 % (19-41); Monocyte 3 % (0-10); Myelocyte 1 % (0-0); Neutrophil-Band 6 % (0-5); Neutrophil-Segmented 86 % (47-70); Total Cells Counted 100 (MANUAL DIFF)
[2023-05-04 07:23] LABS: Bedside Glucose 236 mg/dL (74-106)
--- NOTE | 2023-05-04 08:53 | PN.CC_ITS ---
Assessment & Plan Assessment/Plan (1) SOB (shortness of breath): (2) COPD (chronic obstructive pulmonary disease): (3) 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: (4) Pulmonary emboli: PLAN: Plan RECOMMENDATIONS: 1. I agree with continuing antimicrobials, bronchodilators and steroids for now. 2. Continue to wean supplemental oxygen to maintain saturations at or above 90%. 3. Encourage incentive spirometer use and mobilize patient as tolerated. 4. Tentative plans for upper endoscopy. IMPRESSIONS: 1. Shortness of breath and hypoxemia Unclear etiology. CTA chest completed on May 02 demonstrated a small nonocclusive right lower lobe pulmonary embolism along with groundglass opacities and mosaic attenuation. The patient is on Keytruda as an outpatient, raising the possibility for medication induced pneumonitis. Alternatively, chemical pneumonitis secondary to environmental inhalation of pool chemicals is also a possibility. Congestive heart failure seems unlikely. Therefore it is certainly reasonable to continue empiric antibiotics along with bronchodilators and steroids. The patient does report interval improvement in his breathing quality since yesterday. 2. 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 3. Microcytic anemia/aortic valve stenosis/CAD/COPD/hyperglycemia/chronic steroids Complicates care, management, recovery and prognosis. Continue home medications as indicated. This note was generated with [employer] dictation software. It may contain incorrect words, spelling, and punctuation that were not noted in checking the note before signing. Subjective Subjective The patient was seen and examined at the bedside this morning. Events from the last 24 hours have been reviewed. The patient is currently afebrile, hemodynamically stable and maintaining appropriate oxygen saturations on 3 L/min via nasal cannula. The patient remains on antimicrobials, bronchodilators and IV steroids. He does report interval improvement in his breathing quality since yesterday. According to the patient, he is going to be undergoing an upper endoscopy at some point today. Objective Data Objective Data The patient's most recent lab work, culture data and imaging studies have all been personally reviewed. Infectious work-up has been unrevealing to date. Vital Signs: Vital Signs Temp Pulse Resp BP Pulse Ox O2 Del Method O2 Flow Rate 97.8 F 88 20 H 135/63 H 93 Nasal Cannula 3 05/04/23 07:46 05/04/23 07:46 05/04/23 07:46 05/04/23 07:46 05/04/23 07:46 05/04/23 07:46 05/04/23 07:46 Oxygen Flow Rate (L/min) 3 Oxygen Delivery Method Nasal Cannula Weight: 165 lb 0.009 oz Body Mass Index (BMI) 29.8 Intake & Output: Intake and Output for Last 24 Hours 05/02/23 05/03/23 05/04/23 23:59 23:59 23:59 Intake Total 250 / 250 305 / 305 100 / 100 Output Total 500 / 500 Balance 250 / 250 -195 / -195 100 / 100 Lab / Micro Data Attestation: I reviewed the patient's lab results. Result Diagrams: 05/04/23 05:40 05/04/23 05:40 Labs: Laboratory Results - last 24 hr 05/03/23 11:33: POC Glucose 338 H 05/03/23 16:39: POC Glucose 233 H 05/03/23 21:47: POC Glucose 318 H 05/04/23 05:40: WBC 4.4, RBC 3.82 L, Hgb 10.1 L, Hct 29.0 L, MCV 75.9 L, MCH 26.4 L, MCHC 34.8, RDW Std Deviation 45.2 H, RDW Coeff of Kailey 16.7 H, Plt Count 110 L, MPV 9.1, Neut % (Auto) Not Reportable, Absolute Neuts (auto) 4.0, Absolute Lymphs (auto) 0.17 L, Total Counted 100, Neutrophils % (Manual) 86 H, Band Neutrophils % 6 H, Lymphocytes % (Manual) 4 L, Monocytes % (Manual) 3, Myelocytes % 1 H, Diff Path Review May foll, Platelet Estimate SLT DEC, Anisocytosis 1+, Microcytosis 1+ 05/04/23 05:40: Sodium 135 L, Potassium 3.7, Chloride 109 H, Carbon Dioxide 18.0 L, Anion Gap 8, BUN 26 H, Creatinine 0.94, Estim Creat Clear Calc 64.52, Est GFR (MDRD) Af Amer 102, Est GFR (MDRD) Non-Af 84, BUN/Creatinine Ratio 27.7 H, Glucose 250 H, Calcium 8.8 05/04/23 05:40: PT 15.5 H, INR 1.2, APTT 38.0 H 05/04/23 06:00: POC Glucose 236 H Micro: Microbiology 05/03/23 03:50 Sputum, Expectorated/Coughed Gram Stain - Final 05/03/23 06:35 Stool Stool Occult Blood (CRYSTAL) - Final Occult Blood Positive 05/02/23 17:15 Mucosa - Nasopharyngeal Respiratory Panel (PCR) - Final 05/02/23 12:16 Nasal Secretion SARS-CoV-2 Antigen (Rapid) - Final Rhythm Strip Rhythm Strip: Sinus Rhythm Rate: 90 Ectopy: None Physical Exam Const alert and no apparent distress Constitutional Narrative: Sitting in bedside recliner. General Appearance: cooperative HEENT normocephalic, head/scalp atraumatic and moist oral mucous membranes Eyes PERRL, EOMs intact bilaterally and conjunctivae normal Neck supple General: trachea midline Chest inspection of chest normal Resp normal respiratory effort Auscultation: diminished lung sounds; Negative for rales, rhonchi or wheezes Cardio regular rate and regular rhythm GI normal to inspection, nondistended, normoactive bowel sounds Extremity no clubbing, cyanosis or edema Skin no rashes or lesions noted Neuro oriented x3, CN's II-XII intact bilaterally and moves all extremities Psych cooperative and affect normal Charges/Coding Visit Charges Inpatient E&M: 89599 Subs Hosp L2
--- NOTE | 2023-05-04 09:28 | PN.HOSP_ITS ---
Reason for Visit Reason for Visit: Diagnoses Malignant neoplasm of unspecified kidney, except renal pelvis (05/02/23) Secondary malignant neoplasm of unspecified lung (05/02/23) Other pulmonary embolism without acute cor pulmonale (05/02/23) Chronic obstructive pulmonary disease, unspecified (05/02/23) Shortness of breath (05/02/23) Hypoxemia (05/02/23) Hyperglycemia, unspecified (05/02/23) Subjective Subjective Feels well. No complaints. Breathing well. Objective Data Objective Data Vital Signs: Vital Signs Temp Pulse Resp BP Pulse Ox O2 Del Method O2 Flow Rate 36.6 C 88 20 H 135/63 H 93 Nasal Cannula 3 05/04/23 07:46 05/04/23 07:46 05/04/23 07:46 05/04/23 07:46 05/04/23 07:46 05/04/23 07:46 05/04/23 07:46 Oxygen Flow Rate (L/min) 3 Oxygen Delivery Method Nasal Cannula Weight: 74.843 kg Body Mass Index (BMI) 29.8 Intake & Output: Intake and Output for Last 24 Hours 05/02/23 05/03/23 05/04/23 23:59 23:59 23:59 Intake Total 250 / 250 305 / 305 100 / 100 Output Total 500 / 500 Balance 250 / 250 -195 / -195 100 / 100 Lab / Micro Data Result Diagrams: 05/04/23 05:40 05/04/23 05:40 Labs: Laboratory Results - last 24 hr 05/03/23 11:33: POC Glucose 338 H 05/03/23 16:39: POC Glucose 233 H 05/03/23 21:47: POC Glucose 318 H 05/04/23 05:40: WBC 4.4, RBC 3.82 L, Hgb 10.1 L, Hct 29.0 L, MCV 75.9 L, MCH 26.4 L, MCHC 34.8, RDW Std Deviation 45.2 H, RDW Coeff of Kailey 16.7 H, Plt Count 110 L, MPV 9.1, Neut % (Auto) Not Reportable, Absolute Neuts (auto) 4.0, Absolute Lymphs (auto) 0.17 L, Total Counted 100, Neutrophils % (Manual) 86 H, Band Neutrophils % 6 H, Lymphocytes % (Manual) 4 L, Monocytes % (Manual) 3, Myelocytes % 1 H, Diff Path Review May foll, Platelet Estimate SLT DEC, Anisocytosis 1+, Microcytosis 1+ 05/04/23 05:40: Sodium 135 L, Potassium 3.7, Chloride 109 H, Carbon Dioxide 18.0 L, Anion Gap 8, BUN 26 H, Creatinine 0.94, Estim Creat Clear Calc 64.52, Est GFR (MDRD) Af Amer 102, Est GFR (MDRD) Non-Af 84, BUN/Creatinine Ratio 27.7 H, Glucose 250 H, Calcium 8.8 05/04/23 05:40: PT 15.5 H, INR 1.2, APTT 38.0 H 05/04/23 06:00: POC Glucose 236 H Micro: Microbiology 05/03/23 03:50 Sputum, Expectorated/Coughed Gram Stain - Final 05/03/23 06:35 Stool Stool Occult Blood (CRYSTAL) - Final Occult Blood Positive 05/02/23 17:15 Mucosa - Nasopharyngeal Respiratory Panel (PCR) - Final 05/02/23 12:16 Nasal Secretion SARS-CoV-2 Antigen (Rapid) - Final Rhythm Strip Rhythm Strip: Sinus Rhythm Rate: 90 Ectopy: None Physical Exam Const no apparent distress Constitutional Narrative: up in chair. HEENT head/scalp atraumatic and moist oral mucous membranes Resp normal respiratory effort, no retractions, no use of accessory muscles and clear to auscultation bilaterally Cardio regular rate, regular rhythm, S1 normal heart sound and S2 normal heart sound GI normal to inspection, nondistended, normoactive bowel sounds and soft to palpation Neuro oriented x3 and CN's II-XII intact bilaterally Assessment & Plan Assessment/Plan (1) Pneumonitis: PLAN: Patient does not meet criteria for acute hypoxic respiratory failure Etiology is unclear: infectious/Keytruda induced pneumonitis/COPD exacerbation Pulm following. Testing: * CT of the chest demonstrated small chronic nonocclusive right lower lobe pulmonary embolus, new 3 mm spiculated right lower lobe nodule and left lower lobe pulmonary nodules measuring 8 mm suspicious for metastasis, progression of mild mediastinal and hilar lymphadenopathy, mild pneumonitis, bronchiectasis * COVID 19 and resp panel negative. SCx pending. BCx negative. Treatment * Continue Levaquin 750 mg daily through the . * IV steroids 40 every 8 and hold home Decadron-Transition back to Decadron at discharge * Aggressive pulmonary toilet: I-S/Acapella * Patient had echocardiogram done on January 13, 2023 that showed an EF of 65% and no evidence of diastolic dysfunction (2) Pulmonary emboli: PLAN: Right lower lobe nonocclusive PE Hold anticoagulation--> patient with guaiac positive stool and drop in hemoglobin along with iron deficiency anemia Not likely etiology for acute shortness of breath and hypoxia No signs of cardiac strain Check duplex of LE. If unable to anticoagulate w + PE, then may need to consider IVC filter. (3) GI bleed: PLAN: Guaiac stool was positive Iron studies are consistent with iron deficiency Suspect upper with steroid use N.p.o. after midnight Hold anticoagulation and aspirin Start Protonix drip GI consulted with plans for EGD tomorrow (4) Diabetes mellitus, type 2: PLAN: Likely Decadron induced Hemoglobin A1c was 7.4 consistent with diabetes Accu-Cheks Sliding scale insulin We will likely plan for diet control at discharge (5) Adenocarcinoma of right lung: PLAN: Poorly differentiated adenocarcinoma of the lung/metastatic left renal cell carcinoma Left radical nephrectomy 2005January 28, 2021--> Greening CT of chest showed spiculated partially cavitary mass in the right lower lobe--> CT-guided biopsy demonstrated moderately to poorly differentiated adenocarcinoma of the lung primary--> March 2021 VATS converted to right muscle-sparing thoracotomy with right lower lobectomy, right upper lobe wedge resection and right middle lobe wedge resection with mediastinal lymph node dissection (positive lymph nodes noted at this time)--> MRI October 2022 showed 1.6 cm enhancing mass in the left posterior parietal lobe concerning for hemorrhagic metastasis and large surrounding edema--> follow-up MRI December 16, 2022 shows increasing size of metastatic mass in the left posterior parietal lobe--> CT of chest abdomen pelvis December 29, 2022 showed persistent solid mass in the lower pole of the right kidney with slight increase in size since August, chronic interstitial changes in both lungs--> follow-up MRI January 2023 shows persistent hemorrhagic metastasis--> follow-up chest abdomen pelvis CT March 13, 2023 shows an enlarged right posterior mediastinal lymph node and stable 4.2 cm right renal mass--> MRI brain March 2023 shows doubling in size of mass in the posterior medial aspect of the left parietal lobe with surrounding vasogenic edema that had slightly increased and no further metastatic lesions--> MRI spectroscopy April 16, 2023 showed spectroscopy and perfusion findings medial and dorsal aspects of the treated presumed left parietal metastasis compatible with viable tumor with more extensive surrounding radiation necrosis May 07, 2021 pembrolizumab plus axitinib for metastatic RCC/Axitinib discontinued May 2021 due to hypertensive crisis Keytruda single agent May 07 ?July 30,2020 (5 cycles)? WA but held in August 2021 due to ELANA.? Resumed November 26, 2021 Stereotactic brain radiation at [facility] October 28, 2022 a single fraction with [address] of chest at this time shows new findings in the lung With regards to brain metastasis patient has a ointment with neurosurgery on Thursday in [place] -Will likely need to be canceled and rescheduled -Holding Decadron while on IV Solu-Medrol (6) Anemia: PLAN: microcytic iron low, ferritin high, however. will change iron to Ferrous sulfate 325 QOD. PLAN: Plan Chronic conditions: * CAD/hypertension/tdzchxhilprvoy-TIX-NVM-LPLB w/ 2.25 x 18 mm Biodivysio Stent x 2, BMS-OM1 w/ 2.25 x 18 mm Biodivysio Stent and 2.25 x 18 mm Pixel Stent and MARVIN-Prox LCx w/ 3.5 x 18 mm Cypher Stent 07/17/2003-Hold home aspirin for now and restart when okay with GI-Continue home amlodipine-continue home carvedilol-Continue home rosuvastatin-Continue home hydralazine * Microcytic anemia-1 g hemoglobin drop overnight-Hold anticoagulation- Consistent with iron deficiency-EGD for tomorrow-IV iron x3 days 200 mg-We will need to discharge on oral iron * Thrombocytopenia-Appears to be chronic and is stable-Likely related to ongoing chemotherapy and cancer treatment-Counts are stable and greater than 100,000 * Aortic valve ebauqoss-Zajo-Ch acute issues-Most recent echocardiogram shows stability * COPD-PFTs show only mild large airway obstructive ventilatory defect-O2 dependent at baseline-No exertional hypoxemia noted on 6-minute walk test earlier this year-Continued outpatient follow-up with pulmonary medicine after discharge DVT prophylaxis -Fully anticoagulated with Eliquis CODE STATUS -Full code verified on admission Charges/Coding Visit Charges Inpatient E&M: 37682 Subs Hosp L2
[2023-05-04] MEDS: Sodium Ferric Gluconat 250 MG in 0.9% Normal Saline 250 ML 135 MG IV (09:29)
[2023-05-04] MEDS: Pantoprazole Sodium 20 MG Tablet PO (09:29)
[2023-05-04] MEDS: guaiFENesin 1,200 MG Tablet 1200 MG PO ×2 (09:41→22:35)
[2023-05-04] MEDS: hydrALAZINE 50 MG Tablet PO ×2 (09:41→22:30)
[2023-05-04] MEDS: Carvedilol 25 MG Tablet PO ×2 (09:41→22:30)
[2023-05-04] MEDS: amLODIPine 10 MG Tablet PO (09:41)
[2023-05-04] MEDS: Ipratropium/Albuterol Sulfate 3 ML AMPUL.NEB INHALATION ×4 (10:27→23:12)
[2023-05-04 11:33] LABS: Bedside Glucose 189 mg/dL (74-106)
--- NOTE | 2023-05-04 11:38 | CASEMGMT ---
LUPE CM into pt room to complete assessment, pt is off of the floor at this time. Assessment to be completed at a later time.
--- NOTE | 2023-05-04 12:30 | EGD_PTH ---
PATIENT: KENN IRAHETA LOC: MS3 U#:[id number] AGE/SX: 67/M ROOM: [facility] [place] RE05/02/[address]: Dr. Khalif Quevedo DO : 1955 BED: 1 DIS: 05/06/2023 SPEC #: [id number] RECD: 05/04/23 13:09 STATUS: ZENAIDA REAlex #: [id number] MIRACLE: 05/04/23 12:[address]: Michael Chambers DEPT: SURGICAL PATHOLOGY RECD BY: nAjali Arora ENTERED: 05/04/23 13:41 SP TYPE: EGD BIOPSY OTHR DR: MD Dr. Benito Ndiaye, DO Dr. Khalif Quevedo, DO Dr. Jacob Jennings, DO Dr. Tara Mae, DO MD Dr. Jm Moore MD Christina Muller, DIRECTOR OF GRADUATE MEDICAL EDUCATION-C Tissues: Duodenum, NOS Procedures: Surgery Specimen Level IV Comments: @ Ordering doctor for SUIV edited from to @ by VERITO at 05/04/23 1520 @ Submitting doctor edited from to @ by YVESOD at 05/04/23 1520 HEADER OPERATION: EGD (MAC) with biopsies and electrohemostasis and clip PRE-OP DIAGNOSIS: GI bleed, anemia TISSUE SUBMITTED: Duodenal ulcer biopsies MICROSCOPIC DIAGNOSIS Duodenal ulcer, biopsy: Fragments of duodenal mucosa with focal villous blunting, erosion, congestion and mild nonspecific chronic inflammation. LUCIEN:gordo 05/05/2023 COMMENT Correlation with clinical, endoscopic findings and appropriate follow up are necessary. MICROSCOPIC DESCRIPTION Slides are reviewed. GROSS DESCRIPTION Received in fixative is one container labeled with the patient's name and designated duodenal ulcer biopsy. The specimen consists of two irregular fragments of light silva soft tissue that in aggregate measure 0.6 x 0.4 x 0.1 cm. The specimen is totally submitted in one cassette. / SJ:gordo 05/04/2023 TC:5 CPT: 82099
--- NOTE | 2023-05-04 12:54 | VDLE_ITS ---
Reason For Study: Hypoxia/Shortness of Breath RIGHT LEFT GSV is normal. GSV is normal. CFV is compressible, spontaneous, phasic, CFV is compressible, spontaneous, phasic, competent and demonstrates normal competent, and demonstrates normal augmentation. augmentation. FV is compressible, spontaneous, phasic, FV is compressible, spontaneous, phasic, competent and demonstrates normal competent and demonstrates normal augmentation. augmentation. POP V is compressible, spontaneous, phasic, POP V is compressible, spontaneous, phasic, competent and demonstrates normal competent and demonstrates normal augmentation. augmentation. T/P Trunk is compressible. T/P Trunk is compressible. PTV is compressible. PTV is compressible. RT PerV is compressible. LT PerV is compressible. Procedure This is a venous duplex using B-mode, color flow and spectral Doppler. Exam performed portable in patient room. The exam was diagnostic. A preliminary report was called and/or faxed to M/S 3 change agent. VL/Venous Duplex US - Ramon Extrem Interpretation Summary Deep veins of the lower extremities are bilaterally patent and compressible seg mentally. There is no evidence of deep vein thrombosis on either side. Valvular competence appears in tact within the proximal deep venous systems bilaterally. The great saphenous veins appear bila terally patent and compressible segmentally. Ordering Physician: Khalif Quevedo Performed By: Figueroa Osorio, RVT
[2023-05-04 12:57] LABS: Pathologist Review Reviewed
[2023-05-04 12:59] LABS: Pathologist Review Reviewed
[2023-05-04 13:03] LABS: Pathologist Review Reviewed
--- NOTE | 2023-05-04 13:20 | OP.EGD_ITS ---
Patient Name: Steven Arshad Procedure Date: 05/04/2023 12:25 PM Date of : 1955 Age: 67 Procedure: Upper GI endoscopy Indications: Iron deficiency anemia Providers: Michael Chambers DO Medicines: Monitored Anesthesia Care Patient Profile: This is a 67 year old male. Refer to note in patient chart for documentation of history and physical. Patient has symptoms of acute epigastric abdominal pain. Complications: No immediate complications. Procedure: Pre-Anesthesia Assessment: - Prior to the procedure, a History and Physical was performed, and patient medications and allergies were reviewed. The patient is competent. The risks and benefits of the procedure and the sedation options and risks were discussed with the patient. All questions were answered and informed consent was obtained. Patient identification and proposed procedure were verified by the physician in the pre-procedure area. Mental Status Examination: alert and oriented. Airway Examination: normal oropharyngeal airway and neck mobility. Respiratory Examination: clear to auscultation. CV Examination: normal. Prophylactic Antibiotics: The patient does not require prophylactic antibiotics. Prior Anticoagulants: The patient has taken no previous anticoagulant or antiplatelet agents. ASA Grade Assessment: II - A patient with mild systemic disease. After reviewing the risks and benefits, the patient was deemed in satisfactory condition to undergo the procedure. The anesthesia plan was to use moderate sedation / analgesia (conscious sedation). Immediately prior to administration of medications, the patient was re-assessed for adequacy to receive sedatives. The heart rate, respiratory rate, oxygen saturations, blood pressure, adequacy of pulmonary ventilation, and response to care were monitored throughout the procedure. The physical status of the patient was re-assessed after the procedure. After obtaining informed consent, the endoscope was passed under direct vision. Throughout the procedure, the patient's blood pressure, pulse, and oxygen saturations were monitored continuously. The gastroscope was introduced through the mouth, and advanced to the second part of duodenum. The upper GI endoscopy was accomplished without difficulty. The patient tolerated the procedure well. Scope In: 12:37:51 PM Scope Out: 12:53:24 PM Total Procedure Duration Time 0 hours 15 minutes 33 seconds Findings: The Z-line was irregular and was found 38 cm from the incisors. A medium-sized hiatal hernia was present. Diffuse moderately congested mucosa was found in the entire examined stomach. Diffuse prominent gastric folds were found in the stomach. Red blood was found in the second portion of the duodenum. Few non-obstructing oozing cratered duodenal ulcers with adherent clot were found in the duodenal bulb. The largest lesion was 5 mm in largest dimension. There is no evidence of perforation. Biopsies were taken with a cold forceps for histology. Verification of patient identification for the specimen was done. Estimated blood loss was minimal. Four oozing cratered duodenal ulcers with a visible vessel were found in the first portion of the duodenum. The largest lesion was 6 mm in largest dimension. Area was successfully injected with 5 mL of a 1:10,000 solution of epinephrine for drug delivery. One non-bleeding linear duodenal ulcer with pigmented material was found in the duodenal bulb. The lesion was 2 mm in largest dimension. Coagulation for hemostasis using heater probe was successful. Estimated blood loss was minimal. Impression: - Z-line irregular, 38 cm from the incisors. - Medium-sized hiatal hernia. - Congestive gastropathy. - Enlarged gastric folds. - Blood in the second portion of the duodenum. - Multiple non-obstructing oozing duodenal ulcers with adherent clot. There is no evidence of perforation. Biopsied. - Multiple oozing duodenal ulcers with a visible vessel. Injected. - One non-bleeding duodenal ulcer with pigmented material. Treated with a heater probe. Recommendation: - Return patient to [facility] for [facility] care. - Full liquid diet. - Continue present medications. - Await pathology results. Procedure Code(s): --- Professional --- 43922, 59, Esophagogastroduodenoscopy, flexible, transoral; with control of bleeding, any method 12440, 59, Esophagogastroduodenoscopy, flexible, transoral; with directed submucosal injection(s), any substance 87640, 51, Esophagogastroduodenoscopy, flexible, transoral; with biopsy, single or multiple CPT copyright 2017 [employer]. All rights reserved. The codes documented in this report are preliminary and upon profiler operator review may be revised to meet current compliance requirements. Michael Chambers DO 05/04/2023 1:20:13 PM This report has been signed electronically. Number of Addenda: 0 Note Initiated On: 05/04/2023 12:25 PM
--- NOTE | 2023-05-04 13:20 | OP.CCLET_ITS ---
05/04/2023 Jacob Jennings Re : Upper GI endoscopy procedure for Steven Arshad Dear Dick This procedure was performed on Thursday, May 04, 2023. My impressions and recommendations are as follows: Impressions : - Z-line irregular, 38 cm from the incisors. - Medium-sized hiatal hernia. - Congestive gastropathy. - Enlarged gastric folds. - Blood in the second portion of the duodenum. - Multiple non-obstructing oozing duodenal ulcers with adherent clot. There is no evidence of perforation. Biopsied. - Multiple oozing duodenal ulcers with a visible vessel. Injected. - One non-bleeding duodenal ulcer with pigmented material. Treated with a heater probe. Recommendations : - Return patient to [facility] for ongoing care. - Full liquid diet. - Continue present medications. - Await pathology results. My findings are described in the full procedure note, which is enclosed. If I can be of further assistance, please feel free to contact me at . Sincerely, Michael Chambers, 05/04/2023 1:20:13 PM This report has been signed electronically.
--- NOTE | 2023-05-04 14:05 | CASEMGMT ---
LUPE GAR Assessment: Face to Face with pt for initial transition planning/care coordination assessment. RN RIN introduced self and role at [facility], pt voices understanding and consents to assessment. Pt is A/O x4 and answers all questions appropriately at this time. Pt lying in bed in no distress with oxygen on and at bedside. Care providers, pharmacy, and demographics verified/updated. Admitting Dx: hypoxia/SOB PCP:Dick Specialists:Michael and Kristi, onc; Gold pulm; Jaime, cardio; Diamond, neurosurgery Preferred [facility]acy: [facility] Insurance: [employer] Supp Prescription Benefit: yes LNOK: Karen Arshad, Living Arrangements: Pt lives with in a two story home with no steps to enter. Pt reports he is I in ADL's and denies concerns at home. Transportation: Pt drives self and denies concerns with transportation. DME/HHC/SNF: Pt has a cane and walker at home but does not use. Pt denies hx of HHC or SNF stays. Pt states no concerns with going home at time of dc. Discussed local in network DME companies should pt need oxygen at dc, pt chose [employer]. Pt states no further concerns/needs. CM to follow. Advised pt to ask CM if any further question/concerns/needs arise, voices understanding. Pt Goal: Home Plan: Home, follow for oxygen and need for BGM
--- NOTE | 2023-05-04 16:07 | CHAPLAIN ---
Type of Pastoral Visit _x__ Initial Visit ___ Follow-up Visit ___ On-call Visit ___ General Patient Visit ___ Spiritual Assessment ___ Family Conference ___ Bereavement ___ Rapid Response ___ Code Blue ___ Other (describe below) Pastoral Care Referral From _x__ Patient ___ Family ___ Nurse ___ Physician ___ Screen Writer ___ Tearoom Host/Hostess ___ Other (describe below) Sacrament/Intervention _x__ Active listening ___ Anointing ___ Restorationist ___ Bereavement ___ Communion _x__ Latha exploration ___ ___ Life review _x__ Prayer ___ Reconciliation ___ Sacrament of Sick _x__ Supportive presence ___ Wedding ___ Other (describe below) Pastoral Comments patient has spouse, sister, and [id number] in the room who offer to step out for this spiritual care visit; pt asks family to stay and admits that he broke down yesterday and that I probably need to talk but I'm not good at it; family agrees to these statements; pt says that this has been going on for two years now but I've had some medicine changes; pt says he is looking for guidance but not sure himself what that is; pt says that he is not yarsanism but family is and yet he is willing to make changes to that; pt welcome presence and prayer and future visits
[2023-05-04 16:59] LABS: Bedside Glucose 243 mg/dL (74-106)
[2023-05-04] MEDS: ROSUVASTATIN CALCIUM 40 MG TABLET PO (22:30)
[2023-05-05] VITALS (12 sets, daily range): BP systolic 123–136; BP diastolic 66–74; PULSE 77–89; RESP 16–20; TEMP 36.6–37.1; O2SAT 91–96
[2023-05-05 00:40] LABS: Bedside Glucose 263 mg/dL (74-106)
[2023-05-05] MEDS: Ipratropium/Albuterol Sulfate 3 ML AMPUL.NEB INHALATION ×6 (03:07→23:07)
[2023-05-05 06:11] LABS: Hematocrit 31.7 % (40-54); Hemoglobin 10.4 g/dL (13.0-16.5); Mean Corp Hgb Conc 32.8 g/dL (32-36); Mean Corpuscular Hgb 25.5 pg (27.0-32.0); Mean Corpuscular Volume 77.7 fL (80-94); Mean Platelet Vol. 9.2 fl (6.2-12.0); POSITIVE COUNT YES; POSITIVE DIFFERENTIAL YES; POSITIVE MORPHOLOGY YES; Platelet Count 117 K/mm3 (150-450); RBC Distribution Width CV 17.2 % (11.6-14.6); RBC Distribution Width SD 47.8 fl (35.1-43.9); Red Blood Count 4.08 M/mm3 (4.6-6.2); White Blood Count 4.8 K/mm3 (4.4-11.0)
[2023-05-05 06:32] LABS: Differential Indicated MANUAL DIFF
[2023-05-05 06:49] LABS: Anion Gap 8 (5-15); BUN 29 mg/dL (7-18); BUN/Creat Ratio 30.8 RATIO (10-20); Calcium,Total 8.8 mg/dL (8.5-10.1); Chloride 113 mmol/L (98-107); Creatinine, Serum 0.94 mg/dL (0.70-1.30); EST Glomerular Filtration Rate 84 mL/min (>60); Est Glom Filt Rate - Afr Amer 102 mL/min (>60); Estimated Creatinine Clearance 64.52 ml/min; Glucose 252 mg/dL (74-106); Potassium 3.9 mmol/L (3.5-5.1); Sodium Level 138 mmol/L (136-145)
[2023-05-05 06:51] LABS: Anisocytosis 1+; Microcytosis 1+; Platelet Estimate SLT DEC (ADEQ)
[2023-05-05] MEDS: Insulin Lispro 100 UNIT/ML INSULN.PEN SC ×3 (06:53→17:06)
[2023-05-05 06:54] LABS: Absolute Lymphocyte Count 0.29 X10^3/uL (0.83-4.51); Absolute Neutrophil Count 4.1 X10^3/uL (2.0-7.7); Neutrophil-Band 3 % (0-5); Neutrophil-Segmented 83 % (47-70); Total Cells Counted 100 (MANUAL DIFF)
[2023-05-05 06:55] LABS: Lymphocyte 6 % (19-41); Monocyte 4 % (0-10); Myelocyte 4 % (0-0)
[2023-05-05] MEDS: 0.9% Saline Lock 10 ML Syringe IV (06:55)
[2023-05-05] MEDS: levoFLOXacin 750 MG Tablet PO (06:55)
[2023-05-05] MEDS: Methylprednisolone Sod Succ 40 MG/ML VIAL IV ×2 (06:56→20:49)
[2023-05-05 07:25] LABS: Bedside Glucose 245 mg/dL (74-106)
--- NOTE | 2023-05-05 08:04 | PCM.PN.HOSP ---
Reason for Visit Reason for Visit: Diagnoses Malignant neoplasm of unspecified part of right bronchus or lung (05/02/23) Malignant neoplasm of unspecified kidney, except renal pelvis (05/02/23) Secondary malignant neoplasm of unspecified lung (05/02/23) Iron deficiency anemia, unspecified (05/02/23) Anemia, unspecified (05/02/23) Type 2 diabetes mellitus without complications (05/02/23) Other pulmonary embolism without acute cor pulmonale (05/02/23) Pneumonia, unspecified organism (05/02/23) Chronic obstructive pulmonary disease, unspecified (05/02/23) Gastrointestinal hemorrhage, unspecified (05/02/23) Shortness of breath (05/02/23) Hypoxemia (05/02/23) Hyperglycemia, unspecified (05/02/23) Subjective Subjective Feeling well. No events overnight. Objective Data Objective Data Vital Signs: Vital Signs Temp Pulse Resp BP Pulse Ox O2 Del Method O2 Flow Rate 36.6 C 77 18 136/73 H 93 Nasal Cannula 2 05/05/23 05:17 05/05/23 07:03 05/05/23 07:03 05/05/23 05:17 05/05/23 07:03 05/05/23 07:03 05/05/23 07:03 Oxygen Flow Rate (L/min) 2 Oxygen Delivery Method Nasal Cannula Weight: 74.843 kg Body Mass Index (BMI) 29.8 Intake & Output: Intake and Output for Last 24 Hours 05/03/23 05/04/23 05/05/23 23:59 23:59 23:59 Intake Total 305 / 305 770 / 770 300 / 300 Output Total 500 / 500 0 / 0 Balance -195 / -195 770 / 770 300 / 300 Lab / Micro Data Result Diagrams: 05/05/23 05:55 05/05/23 05:55 Labs: Laboratory Results - last 24 hr 05/02/23 11:05: Diff Path Review Reviewed 05/03/23 05:21: Diff Path Review Reviewed 05/04/23 05:40: Diff Path Review Reviewed 05/04/23 10:33: Procalcitonin 0.10 H 05/04/23 11:16: POC Glucose 189 H 05/04/23 16:41: POC Glucose 243 H 05/04/23 22:28: POC Glucose 263 H 05/05/23 05:55: WBC 4.8, RBC 4.08 L, Hgb 10.4 L, Hct 31.7 L, MCV 77.7 L, MCH 25.5 L, MCHC 32.8 D, RDW Std Deviation 47.8 H, RDW Coeff of Kailey 17.2 H, Plt Count 117 L, MPV 9.2, Neut % (Auto) Not Reportable, Absolute Neuts (auto) 4.1, Absolute Lymphs (auto) 0.29 L, Total Counted 100, Neutrophils % (Manual) 83 H, Band Neutrophils % 3, Lymphocytes % (Manual) 6 L, Monocytes % (Manual) 4, Myelocytes % 4 H, Diff Path Review March, Platelet Estimate SLT DEC, Anisocytosis 1+, Microcytosis 1+ 05/05/23 05:55: Sodium 138, Potassium 3.9, Chloride 113 H, Carbon Dioxide 17.0 L, Anion Gap 8, BUN 29 H, Creatinine 0.94, Estim Creat Clear Calc 64.52, Est GFR (MDRD) Af Amer 102, Est GFR (MDRD) Non-Af 84, BUN/Creatinine Ratio 30.8 H, Glucose 252 H, Calcium 8.8 05/05/23 06:53: POC Glucose 245 H Micro: Microbiology 05/02/23 11:09 Blood Culture (Wb) #2 - Anticubital Left Blood Culture - Preliminary No growth in 48 hours. 05/02/23 11:05 Blood Culture (Wb) - Port Blood Culture - Preliminary No growth in 48 hours. 05/03/23 03:50 Sputum, Expectorated/Coughed Gram Stain - Final 05/03/23 03:50 Sputum, Expectorated/Coughed Respiratory Culture - Preliminary Appears to be normal respiratory laure. Further studies to follow. 05/03/23 06:35 Stool Stool Occult Blood (CRYSTAL) - Final Occult Blood Positive 05/02/23 17:15 Mucosa - Nasopharyngeal Respiratory Panel (PCR) - Final 05/02/23 12:16 Nasal Secretion SARS-CoV-2 Antigen (Rapid) - Final Radiography Diagnostic Testing: Radiology Impression Chest X-Ray 05/04/23 05:00 IMPRESSION: No definite acute or significant abnormality seen. Electronically Signed: Sami Gould MD at 17:12 EDT , Venous Doppler Study 05/04/23 12:54 Interpretation Summary Deep veins of the lower extremities are bilaterally patent and compressible segmentally. There is no evidence of deep vein thrombosis on either side. Valvular competence appears intact within the proximal deep venous systems bilaterally. The great saphenous veins appear bilaterally patent and compressible segmentally. Ordering Physician: Khalif Quevedo Performed By: Figueroa Osorio RVT Rhythm Strip Rhythm Strip: Sinus Rhythm Rate: 90 Ectopy: None Physical Exam Const alert and no apparent distress HEENT head/scalp atraumatic and moist oral mucous membranes Resp normal respiratory effort, no retractions, no use of accessory muscles and clear to auscultation bilaterally Cardio regular rate, regular rhythm, S1 normal heart sound and S2 normal heart sound GI normal to inspection, nondistended, normoactive bowel sounds, soft to palpation, non-tender and non-distended Extremity normal to inspection Psych affect normal Assessment & Plan Assessment/Plan (1) Pneumonitis: PLAN: Patient does not meet criteria for acute hypoxic respiratory failure Etiology is unclear: infectious/Keytruda induced pneumonitis/COPD exacerbation Pulm following. Testing: CT of the chest demonstrated small chronic nonocclusive right lower lobe pulmonary embolus, new 3 mm spiculated right lower lobe nodule and left lower lobe pulmonary nodules measuring 8 mm suspicious for metastasis, progression of mild mediastinal and hilar lymphadenopathy, mild pneumonitis, bronchiectasis COVID 19 and resp panel negative. SCx pending. BCx negative. Treatment Continue Levaquin 750 mg daily through the . IV steroids 40 every 12h and hold home Decadron-Transition back to Decadron at discharge Aggressive pulmonary toilet: I-S/Acapella Patient had echocardiogram done on January 13, 2023 that showed an EF of 65% and no evidence of diastolic dysfunction (2) Pulmonary emboli: PLAN: Suspect malignancy-induced Right lower lobe nonocclusive PE Hold anticoagulation--> patient with guaiac positive stool and drop in hemoglobin along with iron deficiency anemia Not likely etiology for acute shortness of breath and hypoxia No signs of cardiac strain Duplex of LE negative If H/H remain stable, could reintroduce anticoagulation. Would not resume until the . (3) Diabetes mellitus, type 2: PLAN: Likely steroid-induced Hemoglobin A1c was 7.4 consistent with diabetes Accu-Cheks Sliding scale insulin We will likely plan for diet control at discharge (4) Adenocarcinoma of right lung: PLAN: Poorly differentiated adenocarcinoma of the lung/metastatic left renal cell carcinoma Left radical nephrectomy 2005January 28, 2021--> Greening CT of chest showed spiculated partially cavitary mass in the right lower lobe--> CT-guided biopsy demonstrated moderately to poorly differentiated adenocarcinoma of the lung primary--> March 2021 VATS converted to right muscle-sparing thoracotomy with right lower lobectomy, right upper lobe wedge resection and right middle lobe wedge resection with mediastinal lymph node dissection (positive lymph nodes noted at this time)--> MRI October 2022 showed 1.6 cm enhancing mass in the left posterior parietal lobe concerning for hemorrhagic metastasis and large surrounding edema--> follow-up MRI December 16, 2022 shows increasing size of metastatic mass in the left posterior parietal lobe--> CT of chest abdomen pelvis December 29, 2022 showed persistent solid mass in the lower pole of the right kidney with slight increase in size since August, chronic interstitial changes in both lungs--> follow-up MRI January 2023 shows persistent hemorrhagic metastasis--> follow-up chest abdomen pelvis CT March 13, 2023 shows an enlarged right posterior mediastinal lymph node and stable 4.2 cm right renal mass--> MRI brain March 2023 shows doubling in size of mass in the posterior medial aspect of the left parietal lobe with surrounding vasogenic edema that had slightly increased and no further metastatic lesions--> MRI spectroscopy April 16, 2023 showed spectroscopy and perfusion findings medial and dorsal aspects of the treated presumed left parietal metastasis compatible with viable tumor with more extensive surrounding radiation necrosis May 07, 2021 pembrolizumab plus axitinib for metastatic RCC/Axitinib discontinued May 2021 due to hypertensive crisis Keytruda single agent May 07 ?July 30,? 2020 (5 cycles)? ME but held in August 2021 due to ELANA.? Resumed November 26, 2021 Stereotactic brain radiation at [facility] October 28, 2022 a single fraction with [address] of chest at this time shows new findings in the lung Follow up neurosurgery as outpt. (5) Anemia: PLAN: microcytic iron low, ferritin high, however. will change iron to Ferrous sulfate 325 QOD. (6) Duodenal ulcer: PLAN: Multiple. EGD on 05/04: Visible vessel that was injected. Another w non-bleeding pigmented material that was treated with a heater probe. FLD Pantoprazole gtt for 72h then BID dosing PLAN: Plan Chronic conditions: CAD/hypertension/dcvbjjmupccfcn-HCU-MAD-LPLB w/ 2.25 x 18 mm Biodivysio Stent x 2, BMS-OM1 w/ 2.25 x 18 mm Biodivysio Stent and 2.25 x 18 mm Pixel Stent and MARVIN-Prox LCx w/ 3.5 x 18 mm Cypher Stent 07/17/2003-Hold home aspirin for now and restart when okay with GI-Continue home amlodipine-continue home carvedilol-Continue home rosuvastatin-Continue home hydralazine Microcytic anemia-1 g hemoglobin drop overnight-Hold anticoagulation-Consistent with iron deficiency-EGD for tomorrow-IV iron x3 days 200 mg-We will need to discharge on oral iron Thrombocytopenia-Appears to be chronic and is stable-Likely related to ongoing chemotherapy and cancer treatment-Counts are stable and greater than 100,000 Aortic valve xoecveca-Pcfe-Wt acute issues-Most recent echocardiogram shows stability COPD-PFTs show only mild large airway obstructive ventilatory defect-O2 dependent at baseline-No exertional hypoxemia noted on 6-minute walk test earlier this year-Continued outpatient follow-up with pulmonary medicine after discharge DVT prophylaxis -Fully anticoagulated with Eliquis CODE STATUS -Full code verified on admission Charges/Coding Visit Charges Inpatient E&M: 27745 Subs Hosp L2
--- NOTE | 2023-05-05 10:02 | PCM.PN.INT ---
Assessment & Plan Assessment/Plan (1) SOB (shortness of breath): (2) COPD (chronic obstructive pulmonary disease): (3) 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: (4) Pulmonary emboli: PLAN: Plan RECOMMENDATIONS: 1. Continue empiric antimicrobials to complete 7-day treatment course. 2. Continue bronchodilators. 3. Continue steroids. Anticipate steroid taper at discharge. 4. Continue to wean supplemental oxygen to maintain saturations at or above 90%. 5. Encourage incentive spirometer use and mobilize patient as tolerated. 6. Outpatient pulmonary follow-up 2 weeks after discharge. IMPRESSIONS: 1. Shortness of breath and hypoxemia Unclear etiology. CTA chest completed on May 02 demonstrated a small nonocclusive right lower lobe pulmonary embolism along with groundglass opacities and mosaic attenuation. The patient is on Keytruda as an outpatient, raising the possibility for medication induced pneumonitis. Alternatively, chemical pneumonitis secondary to environmental inhalation of pool chemicals is also a possibility. Congestive heart failure seems unlikely. Therefore it is certainly reasonable to continue empiric antibiotics along with bronchodilators and steroids. Anticipate home-going supplemental oxygen requirement. He will need to follow-up in the pulmonary medicine clinic within 2 weeks of discharge. 2. 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 3. Microcytic anemia/aortic valve stenosis/CAD/COPD/hyperglycemia/chronic steroids Complicates care, management, recovery and prognosis. Continue home medications as indicated. This note was generated with Qnary dictation software. It may contain incorrect words, spelling, and punctuation that were not noted in checking the note before signing. Subjective Subjective The patient was seen and examined at the bedside this morning. Events from the last 24 hours have been reviewed. The patient is currently afebrile, hemodynamically stable and maintaining appropriate oxygen saturations on 2 L/min via nasal cannula. The patient overall feels well from a respiratory perspective, with minimal shortness of breath. Objective Data Objective Data The patient's most recent lab work, culture data and imaging studies have all been personally reviewed. Infectious work-up has been unrevealing to date. Vital Signs: Vital Signs Temp Pulse Resp BP Pulse Ox O2 Del Method O2 Flow Rate 98.4 F 89 18 123/74 H 95 Nasal Cannula 2 05/05/23 08:35 05/05/23 08:35 05/05/23 08:35 05/05/23 08:35 05/05/23 08:35 05/05/23 08:35 05/05/23 08:35 Oxygen Flow Rate (L/min) 2 Oxygen Delivery Method Nasal Cannula Weight: 165 lb 0.009 oz Body Mass Index (BMI) 29.8 Intake & Output: Intake and Output for Last 24 Hours 05/03/23 05/04/23 05/05/23 23:59 23:59 23:59 Intake Total 305 / 305 770 / 770 300 / 300 Output Total 500 / 500 0 / 0 Balance -195 / -195 770 / 770 300 / 300 Lab / Micro Data Attestation: I reviewed the patient's lab results. Result Diagrams: 05/05/23 05:55 05/05/23 05:55 Labs: Laboratory Results - last 24 hr 05/02/23 11:05: Diff Path Review Reviewed 05/03/23 05:21: Diff Path Review Reviewed 05/04/23 05:40: Diff Path Review Reviewed 05/04/23 10:33: Procalcitonin 0.10 H 05/04/23 11:16: POC Glucose 189 H 05/04/23 16:41: POC Glucose 243 H 05/04/23 22:28: POC Glucose 263 H 05/05/23 05:55: WBC 4.8, RBC 4.08 L, Hgb 10.4 L, Hct 31.7 L, MCV 77.7 L, MCH 25.5 L, MCHC 32.8 D, RDW Std Deviation 47.8 H, RDW Coeff of Kailey 17.2 H, Plt Count 117 L, MPV 9.2, Neut % (Auto) Not Reportable, Absolute Neuts (auto) 4.1, Absolute Lymphs (auto) 0.29 L, Total Counted 100, Neutrophils % (Manual) 83 H, Band Neutrophils % 3, Lymphocytes % (Manual) 6 L, Monocytes % (Manual) 4, Myelocytes % 4 H, Diff Path Review May foll, Platelet Estimate SLT DEC, Anisocytosis 1+, Microcytosis 1+ 05/05/23 05:55: Sodium 138, Potassium 3.9, Chloride 113 H, Carbon Dioxide 17.0 L, Anion Gap 8, BUN 29 H, Creatinine 0.94, Estim Creat Clear Calc 64.52, Est GFR (MDRD) Af Amer 102, Est GFR (MDRD) Non-Af 84, BUN/Creatinine Ratio 30.8 H, Glucose 252 H, Calcium 8.8 05/05/23 06:53: POC Glucose 245 H Micro: Microbiology 05/02/23 11:09 Blood Culture (Wb) #2 - Anticubital Left Blood Culture - Preliminary No growth in 48 hours. 05/02/23 11:05 Blood Culture (Wb) - Port Blood Culture - Preliminary No growth in 48 hours. 05/03/23 03:50 Sputum, Expectorated/Coughed Gram Stain - Final 05/03/23 03:50 Sputum, Expectorated/Coughed Respiratory Culture - Preliminary Appears to be normal respiratory laure. Further studies to follow. 05/03/23 06:35 Stool Stool Occult Blood (CRYSTAL) - Final Occult Blood Positive 05/02/23 17:15 Mucosa - Nasopharyngeal Respiratory Panel (PCR) - Final 05/02/23 12:16 Nasal Secretion SARS-CoV-2 Antigen (Rapid) - Final Radiography Diagnostic Testing: Radiology Impression Chest X-Ray 05/04/23 05:00 IMPRESSION: No definite acute or significant abnormality seen. Electronically Signed: Sami Gould MD at 17:12 EDT , Venous Doppler Study 05/04/23 12:54 Interpretation Summary Deep veins of the lower extremities are bilaterally patent and compressible segmentally. There is no evidence of deep vein thrombosis on either side. Valvular competence appears intact within the proximal deep venous systems bilaterally. The great saphenous veins appear bilaterally patent and compressible segmentally. Ordering Physician: Khalif Quevedo Performed By: Figueroa Osorio, RVT Rhythm Strip Rhythm Strip: Sinus Rhythm Rate: 90 Ectopy: None Physical Exam Const alert and no apparent distress Constitutional Narrative: Sitting upright in bed. General Appearance: cooperative HEENT normocephalic, head/scalp atraumatic and moist oral mucous membranes Eyes PERRL, EOMs intact bilaterally and conjunctivae normal Neck supple General: trachea midline Chest inspection of chest normal Resp normal respiratory effort Auscultation: diminished lung sounds; Negative for rales, rhonchi or wheezes Cardio regular rate and regular rhythm GI normal to inspection, nondistended, normoactive bowel sounds Extremity no clubbing, cyanosis or edema Skin no rashes or lesions noted Neuro oriented x3, CN's II-XII intact bilaterally and moves all extremities Psych cooperative and affect normal Charges/Coding Visit Charges Inpatient E&M: 68350 Subs Hosp L2
[2023-05-05] MEDS: Carvedilol 25 MG Tablet PO ×2 (10:16→20:49)
[2023-05-05] MEDS: amLODIPine 10 MG Tablet PO (10:16)
[2023-05-05] MEDS: guaiFENesin 1,200 MG Tablet 1200 MG PO ×2 (10:16→20:49)
[2023-05-05] MEDS: hydrALAZINE 50 MG Tablet PO ×2 (10:16→20:48)
[2023-05-05 12:26] LABS: Bedside Glucose 323 mg/dL (74-106)
--- NOTE | 2023-05-05 14:16 | CHAPLAIN ---
Type of Pastoral Visit ___ Initial Visit _x__ Follow-up Visit ___ On-call Visit ___ General Patient Visit ___ Spiritual Assessment ___ Family Conference ___ Bereavement ___ Rapid Response ___ Code Blue ___ Other (describe below) Pastoral Care Referral From ___ Patient _x__ Family ___ Nurse ___ Physician ___ Contract Accountant ___ Resident Programs Assistant ___ Other (describe below) Sacrament/Intervention _x__ Active listening ___ Anointing ___ Anabaptism ___ Bereavement ___ Communion _x__ Latha exploration ___ ___ Life review ___ Prayer ___ Reconciliation ___ Sacrament of Sick ___ Supportive presence ___ Wedding ___ Other (describe below) Pastoral Comments spouse approached this nursery manager in the hallway and asked if patient had been seen today; spouse states he needs to talk to you and it was very helpful yesterday; stopped to see this patient a little later and spouse immediately excused herself from room; pt states several times that he is feeling better and that he is doing good; pt states goal is to get home; reiterated items that patient mentioned yesterday about expressing feelings, talking about it, and where is his latha; affirmed pt openness to admit these and to offer support as needed for the same; pt expressed thanks; pt continued to deny any other desires or needs
--- NOTE | 2023-05-05 15:52 | PN.GI_ITS ---
Subjective Subjective Patient underwent a an upper endoscopy yesterday for presumed upper GI bleed causing patient's new onset anemia. He was discovered to have multiple large bleeding duodenal ulcers with a very hard thickened duodenum likely secondary to medication. Bleeding was stopped and biopsies were taken. No signs or symptoms of bleeding overnight. He does not have any abdominal pain and is tolerating a diet. Objective Data Objective Data Vital Signs: Vital Signs Temp Pulse Resp BP Pulse Ox O2 Del Method O2 Flow Rate 98.7 F 87 18 136/74 H 95 Nasal Cannula 2 05/05/23 15:01 05/05/23 15:01 05/05/23 15:01 05/05/23 15:01 05/05/23 15:01 05/05/23 15:01 05/05/23 15:01 Oxygen Flow Rate (L/min) 2 Oxygen Delivery Method Nasal Cannula Weight: 165 lb 0.009 oz Body Mass Index (BMI) 29.8 Intake & Output: Intake and Output for Last 24 Hours 05/03/23 05/04/23 05/05/23 23:59 23:59 23:59 Intake Total 305 / 305 770 / 770 1150 / 1150 Output Total 500 / 500 0 / 0 Balance -195 / -195 770 / 770 1150 / 1150 Lab / Micro Data Result Diagrams: 05/05/23 05:55 05/05/23 05:55 Labs: Laboratory Results - last 24 hr 05/04/23 16:41: POC Glucose 243 H 05/04/23 22:28: POC Glucose 263 H 05/05/23 05:55: WBC 4.8, RBC 4.08 L, Hgb 10.4 L, Hct 31.7 L, MCV 77.7 L, MCH 25.5 L, MCHC 32.8 D, RDW Std Deviation 47.8 H, RDW Coeff of Kailey 17.2 H, Plt Count 117 L, MPV 9.2, Neut % (Auto) Not Reportable, Absolute Neuts (auto) 4.1, Absolute Lymphs (auto) 0.29 L, Total Counted 100, Neutrophils % (Manual) 83 H, Band Neutrophils % 3, Lymphocytes % (Manual) 6 L, Monocytes % (Manual) 4, Myelocytes % 4 H, Diff Path Review March, Platelet Estimate SLT DEC, Anisocytosis 1+, Microcytosis 1+ 05/05/23 05:55: Sodium 138, Potassium 3.9, Chloride 113 H, Carbon Dioxide 17.0 L , Anion Gap 8, BUN 29 H, Creatinine 0.94, Estim Creat Clear Calc 64.52, Est GFR (MDRD) Af Amer 102, Est GFR (MDRD) Non-Af 84, BUN/Creatinine Ratio 30.8 H, Glucose 252 H, Calcium 8.8 05/05/23 06:53: POC Glucose 245 H 05/05/23 12:04: POC Glucose 323 H Micro: Microbiology 05/02/23 11:09 Blood Culture (Wb) #2 - Anticubital Left Blood Culture - Preliminary No growth in 48 hours. 05/02/23 11:05 Blood Culture (Wb) - Port Blood Culture - Preliminary No growth in 48 hours. 05/03/23 03:50 Sputum, Expectorated/Coughed Gram Stain - Final 05/03/23 03:50 Sputum, Expectorated/Coughed Respiratory Culture - Pre liminary Appears to be normal respiratory laure. Further studies to follow. 05/03/23 06:35 Stool Stool Occult Blood (CRYSTAL) - Final Occult Blood Positive 05/02/23 17:15 Mucosa - Nasopharyngeal Respiratory Panel (PCR) - Final 05/02/23 12:16 Nasal Secretion SARS-CoV-2 Antigen (Rapid) - Final Radiography Diagnostic Testing: Radiology Impression Chest X-Ray 05/04/23 05:00 IMPRESSION: No definite acute or significant abnormality seen. Electronically Signed: Sami Gould MD at 17:12 EDT , Venous Doppler Study 05/04/23 12:54 Interpretation Summary Deep veins of the lower extremities are bilaterally patent and compressible segmentally. There is no evidence of deep vein thrombosis on either side. Valvular competence appears intact within the proximal deep venous systems bilaterally. The great saphenous veins appear bilaterally patent and compressible segmentally. Ordering Physician: Khalif Quevedo Performed By: Figueroa Osorio RVT Rhythm Strip Rhythm Strip: Sinus Rhythm Rate: 90 Ectopy: None Physical Exam Const alert and no apparent distress General Appearance: cooperative HEENT normocephalic, head/scalp atraumatic and moist oral mucous membranes Eyes PERRL, EOMs intact bilaterally and conjunctivae normal Neck supple General: trachea midline Chest inspection of chest normal Resp normal respiratory effort Auscultation: diminished lung sounds; Negative for rales, rhonchi or wheezes Cardio regular rate and regular rhythm GI normal to inspection, nondistended, normoactive bowel sounds Extremity no clubbing, cyanosis or edema Skin no rashes or lesions noted Neuro oriented x3, CN's II-XII intact bilaterally and moves all extremities Psych cooperative and affect normal Assessment & Plan Assessment/Plan (1) GI bleed: (2) Anemia: QUALIFIERS: Anemia type: iron deficiency Iron deficiency anemia type: unspecified iron deficiency Qualified Code(s): D50.9 - Iron deficiency anemia, unspecified PLAN: Plan 67-year-old gentleman with history of metastatic renal cell carcinoma to the lungs and brain (on steroids) status post VATS surgery, chemotherapy, on Keytruda who develops worsening shortness of breath and discovered to have pneumonia and pulmonary emboli. He was also discovered to have worsening iron d eficiency anemia with decrease in blood count after undergoing anticoagulation. Recommendation: Duodenal ulcers-continue PPI drip. Continue to hold anticoagulation. He will need sulcal fate 1 g p.o. 3 times daily or misoprostol 200 mg p.o. 3 times daily for 4 weeks along with Protonix 40 mg twice a day. Continue to monitor H&H. Charges/Coding Visit Charges Inpatient E&M: 06085 Subs Hosp L2
[2023-05-05 17:14] LABS: Bedside Glucose 222 mg/dL (74-106)
[2023-05-05] MEDS: ROSUVASTATIN CALCIUM 40 MG TABLET PO (20:49)
[2023-05-06] VITALS (8 sets, daily range): BP systolic 119–133; BP diastolic 64–102; PULSE 71–94; RESP 16–19; TEMP 36.5; O2SAT 85–97
[2023-05-06] MEDS: Ipratropium/Albuterol Sulfate 3 ML AMPUL.NEB INHALATION ×3 (03:35→11:01)
[2023-05-06] MEDS: Insulin Lispro 100 UNIT/ML INSULN.PEN SC ×2 (06:05→11:35)
[2023-05-06] MEDS: levoFLOXacin 750 MG Tablet PO (06:05)
[2023-05-06 07:01] LABS: Bedside Glucose 242 mg/dL (74-106)
--- NOTE | 2023-05-06 07:48 | PN.HOSP_ITS ---
Reason for Visit Reason for Visit: Diagnoses Malignant neoplasm of unspecified part of right bronchus or lung (05/02/23) Malignant neoplasm of unspecified kidney, except renal pelvis (05/02/23) Secondary malignant neoplasm of unspecified lung (05/02/23) Iron deficiency anemia, unspecified (05/02/23) Anemia, unspecified (05/02/23) Type 2 diabetes mellitus without complications (05/02/23) Other pulmonary embolism without acute cor pulmonale (05/02/23) Pneumonia, unspecified organism (05/02/23) Chronic obstructive pulmonary disease, unspecified (05/02/23) Duodenal ulcer, unspecified as acute or chronic, without hemorrhage or perforation (05/02/23) Gastrointestinal hemorrhage, unspecified (05/02/23) Shortness of breath (05/02/23) Hypoxemia (05/02/23) Hyperglycemia, unspecified (05/02/23) Subjective Subjective Feels well. No events overnight. Objective Data Objective Data Vital Signs: Vital Signs Temp Pulse Resp BP Pulse Ox O2 Del Method O2 Flow Rate 36.6 C 77 19 H 130/66 H 92 Nasal Cannula 2 05/05/23 20:39 05/06/23 07:47 05/06/23 07:47 05/05/23 20:48 05/06/23 07:48 05/06/23 07:48 05/06/23 07:48 Oxygen Flow Rate (L/min) 2 Oxygen Delivery Method Nasal Cannula Weight: 74.843 kg Body Mass Index (BMI) 29.8 Intake & Output: Intake and Output for Last 24 Hours 05/04/23 05/05/23 05/06/23 23:59 23:59 23:59 Intake Total 770 / 770 2250 / 2250 Output Total 0 / 0 Balance 770 / 770 2250 / 2250 Lab / Micro Data 05/06/23 08:05 05/05/23 05:55 Labs: Laboratory Results - last 24 hr 05/05/23 12:04: POC Glucose 323 H 05/05/23 16:55: POC Glucose 222 H 05/06/23 06:02: POC Glucose 242 H Micro: Microbiology 05/02/23 11:09 Blood Culture (Wb) #2 - Anticubital Left Blood Culture - Preliminary No growth in 48 hours. 05/02/23 11:05 Blood Culture (Wb) - Port Blood Culture - Preliminary No growth in 48 hours. 05/03/23 03:50 Sputum, Expectorated/Coughed Gram Stain - Final 05/03/23 03:50 Sputum, Expectorated/Coughed Respiratory Culture - Preliminary Appears to be normal respiratory laure. Further studies to follow. 05/03/23 06:35 Stool Stool Occult Blood (CRYSTAL) - Final Occult Blood Positive 05/02/23 17:15 Mucosa - Nasopharyngeal Respiratory Panel (PCR) - Final 05/02/23 12:16 Nasal Secretion SARS-CoV-2 Antigen (Rapid) - Final Rhythm Strip Rhythm Strip: Sinus Rhythm Rate: 90 Ectopy: None Physical Exam Const alert and no apparent distress HEENT head/scalp atraumatic and moist oral mucous membranes Resp normal respiratory effort, no retractions, no use of accessory muscles and clear to auscultation bilaterally Cardio regular rate, regular rhythm, S1 normal heart sound and S2 normal heart sound GI normal to inspection, nondistended, normoactive bowel sounds and soft to palpation Assessment & Plan Assessment/Plan (1) Pneumonitis: PLAN: Patient does not meet criteria for acute hypoxic respiratory failure Etiology is unclear: infectious/Keytruda induced pneumonitis/COPD exacerbation Pulm following. Testing: * CT of the chest demonstrated small chronic nonocclusive right lower lobe pulmonary embolus, new 3 mm spiculated right lower lobe nodule and left lower lobe pulmonary nodules measuring 8 mm suspicious for metastasis, progression of mild mediastinal and hilar lymphadenopathy, mild pneumonitis, bronchiectasis * COVID 19 and resp panel negative. SCx pending. BCx negative. Treatment * Continue Levaquin 750 mg daily through the . * IV steroids 40 every 12h and hold home Decadron-Transition back to Decadron at discharge. Steroid taper at discharge. * Aggressive pulmonary toilet: I-S/Acapella * Patient had echocardiogram done on January 13, 2023 that showed an EF of 65% and no evidence of diastolic dysfunction (2) Pulmonary emboli: PLAN: Suspect malignancy-induced Right lower lobe nonocclusive PE Hold anticoagulation--> patient with guaiac positive stool and drop in hemoglobin along with iron deficiency anemia Not likely etiology for acute shortness of breath and hypoxia No signs of cardiac strain Duplex of LE negative If H/H remain stable, could reintroduce anticoagulation. Would not resume until the . (3) Diabetes mellitus, type 2: PLAN: Likely steroid-induced Hemoglobin A1c was 7.4 consistent with diabetes Accu-Cheks Sliding scale insulin We will likely plan for diet control at discharge (4) Adenocarcinoma of right lung: PLAN: Poorly differentiated adenocarcinoma of the lung/metastatic left renal cell carcinoma Left radical nephrectomy 2005January 28, 2021--> Greening CT of chest showed spiculated partially cavitary mass in the right lower lobe--> CT-guided biopsy demonstrated moderately to poorly differentiated adenocarcinoma of the lung primary--> March 2021 VATS converted to right muscle-sparing thoracotomy with right lower lobectomy, right upper lobe wedge resection and right middle lobe wedge resection with mediastinal lymph node dissection (positive lymph nodes noted at this time)--> MRI October 2022 showed 1.6 cm enhancing mass in the left posterior parietal lobe concerning for hemorrhagic metastasis and large surrounding edema--> follow-up MRI December 16, 2022 shows increasing size of metastatic mass in the left posterior parietal lobe--> CT of chest abdomen pelvis December 29, 2022 showed persistent solid mass in the lower pole of the right kidney with slight increase in size since August, chronic interstitial changes in both lungs--> follow-up MRI January 2023 shows persistent hemorrhagic metastasis--> follow-up chest abdomen pelvis CT March 13, 2023 shows an enlarged right posterior mediastinal lymph node and stable 4.2 cm right renal mass--> MRI brain March 2023 shows doubling in size of mass in the posterior medial aspect of the left parietal lobe with surrounding vasogenic edema that had slightly increased and no further metastatic lesions--> MRI spectroscopy April 16, 2023 showed spectroscopy and perfusion findings medial and dorsal aspects of the treated presumed left parietal metastasis compatible with viable tumor with more extensive surrounding radiation necrosis May 07, 2021 pembrolizumab plus axitinib for metastatic RCC/Axitinib discontinued May 2021 due to hypertensive crisis Keytruda single agent May 07 ?July 30,? 2020 (5 cycles)? LA but held in August 2021 due to ELANA.? Resumed November 26, 2021 Stereotactic brain radiation at [place] October 28, 2022 a single fraction with [address] of chest at this time shows new findings in the lung Follow up neurosurgery as outpt. (5) Anemia: PLAN: microcytic iron low, ferritin high, however. will change iron to Ferrous sulfate 325 QOD. (6) Duodenal ulcer: PLAN: Multiple. EGD on 05/04: Visible vessel that was injected. Another w non-bleeding pigmented material that was treated with a heater probe. FLD Pantoprazole gtt for 72h then BID dosing Per GI, sucralfate 1 g TID, misoprostol 200 TID for 4 weeks. BID PPI PLAN: Plan Chronic conditions: * CAD/hypertension/xhqvisfmabnnqd-UPI-JBX-LPLB w/ 2.25 x 18 mm Biodivysio Stent x 2, BMS-OM1 w/ 2.25 x 18 mm Biodivysio Stent and 2.25 x 18 mm Pixel Stent and MARVIN-Prox LCx w/ 3.5 x 18 mm Cypher Stent 07/17/2003-Hold home aspirin for now and restart when okay with GI-Continue home amlodipine-continue home carvedilol-Continue home rosuvastatin-Continue home hydralazine * Microcytic anemia-1 g hemoglobin drop overnight-Hold anticoagulation- Consistent with iron deficiency-EGD for tomorrow-IV iron x3 days 200 mg-We will need to discharge on oral iron * Thrombocytopenia-Appears to be chronic and is stable-Likely related to ongoing chemotherapy and cancer treatment-Counts are stable and greater than 100,000 * Aortic valve fdnhbzhc-Vtmp-Ar acute issues-Most recent echocardiogram shows stability * COPD-PFTs show only mild large airway obstructive ventilatory defect-O2 dependent at baseline-No exertional hypoxemia noted on 6-minute walk test earlier this year-Continued outpatient follow-up with pulmonary medicine after discharge DVT prophylaxis -Fully anticoagulated with Eliquis CODE STATUS -Full code verified on admission DC home after PPI gtt completed.
[2023-05-06 08:17] LABS: Hematocrit 32.7 % (40-54); Hemoglobin 10.7 g/dL (13.0-16.5); Mean Corp Hgb Conc 32.7 g/dL (32-36); Mean Corpuscular Hgb 25.5 pg (27.0-32.0); Mean Platelet Vol. 8.9 fl (6.2-12.0); POSITIVE COUNT YES; POSITIVE DIFFERENTIAL YES; POSITIVE MORPHOLOGY YES; Platelet Count 128 K/mm3 (150-450); RBC Distribution Width CV 17.2 % (11.6-14.6); Red Blood Count 4.19 M/mm3 (4.6-6.2); White Blood Count 4.6 K/mm3 (4.4-11.0)
[2023-05-06 08:18] LABS: Differential Indicated MANUAL DIFF
[2023-05-06 08:55] LABS: Lymphocyte 8 % (19-41); Metamyelocyte 6 % (0-1); Myelocyte 1 % (0-0); Neutrophil-Band 1 % (0-5); Neutrophil-Segmented 84 % (47-70); Nucleated Red Bld Cells,Manual 2 % (0-5); Total Cells Counted 100 (MANUAL DIFF)
[2023-05-06 08:56] LABS: Platelet Estimate SLT DEC (ADEQ); Red Cell Morphology NORM C+C NORMAL (NORM C&C)
[2023-05-06 08:57] LABS: Absolute Lymphocyte Count 0.36 X10^3/uL (0.83-4.51); Absolute Neutrophil Count 3.9 X10^3/uL (2.0-7.7); Lymphocyte # 0.36 X10^3/ul (0.83-4.51); Neutrophil # 3.91 X10^3/uL (2.7-7.7)
[2023-05-06] MEDS: amLODIPine 10 MG Tablet PO (09:15)
[2023-05-06] MEDS: Methylprednisolone Sod Succ 40 MG/ML VIAL IV (09:15)
[2023-05-06] MEDS: guaiFENesin 1,200 MG Tablet 1200 MG PO (09:15)
[2023-05-06] MEDS: Carvedilol 25 MG Tablet PO (09:16)
[2023-05-06] MEDS: hydrALAZINE 50 MG Tablet PO (09:16)
[2023-05-06 09:52] LABS: Pathologist Review Reviewed
--- NOTE | 2023-05-06 10:12 | PN.CC_ITS ---
Assessment & Plan Assessment/Plan (1) SOB (shortness of breath): (2) COPD (chronic obstructive pulmonary disease): (3) 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: (4) Pulmonary emboli: PLAN: Plan RECOMMENDATIONS: 1. Continue empiric antimicrobials to complete 7-day treatment course. 2. Continue bronchodilators. 3. Continue steroids. Discharge home on steroid taper, beginning at 40 mg daily and tapering by 10 mg every 3 days. 4. Continue to wean supplemental oxygen to maintain saturations at or above 90%. 5. Encourage incentive spirometer use and mobilize patient as tolerated. 6. Outpatient pulmonary follow-up 2 weeks after discharge. 7. We will sign off at this time. Please call with any additional questions. IMPRESSIONS: 1. Shortness of breath and hypoxemia Unclear etiology. CTA chest completed on May 02 demonstrated a small nonocclusive right lower lobe pulmonary embolism along with groundglass opa cities and mosaic attenuation. The patient is on Keytruda as an outpatient, raising the possibility for medication induced pneumonitis. Alternatively, chemical pneumonitis secondary to environmental inhalation of pool chemicals is also a possibility. Congestive heart failure seems unlikely. Therefore it is certainly reasonable to continue empiric antibiotics along with bronchodilators and steroids. Anticipate home-going supplemental oxygen requirement. He will need to follow-up in the pulmonary medicine clinic within 2 weeks of discharge. 2. 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 3. Microcytic anemia/aortic valve stenosis/CAD/COPD/hyperglycemia/chronic pa roids Complicates care, management, recovery and prognosis. Continue home medications as indicated. This note was generated with [employer] dictation software. It may contain incorrect words, spelling, and punctuation that were not noted in checking the note before signing. Subjective Subjective The patient was seen and examined at the bedside this morning. Events from the last 24 hours have been reviewed. The patient is currently afebrile, hemodynamically stable and maintaining appropriate oxygen saturations on 2 L/min via nasal cannula. The patient again denies any shortness of breath. There are tentative plans for discharge later today. Objective Data Objective Data The patient's most recent lab work, culture data and imaging studies have all been personally reviewed. Infectious work-up has been unrevealing to date. Vital Signs: Vital Signs Temp Pulse Resp BP Pulse Ox O2 Del Method O2 Flow Rate 97.7 F L 90 16 133/74 H 94 Room Air 2 05/06/23 09:04 05/06/23 09:16 05/06/23 09:04 05/06/23 09:16 05/06/23 09:23 05/06/23 09:23 05/06/23 09:04 Oxygen Flow Rate (L/min) 2 Oxygen Delivery Method Room Air Weight: 165 lb 0.009 oz Body Mass Index (BMI) 29.8 Intake & Output: Intake and Output for Last 24 Hours 05/04/23 05/05/23 05/06/23 23:59 23:59 23:59 Intake Total 770 / 770 2250 / 2250 400 / 400 Output Total 0 / 0 Balance 770 / 770 2250 / 2250 400 / 400 Lab / Micro Data Attestation: I reviewed the patient's lab results. 05/06/23 08:05 05/05/23 05:55 Labs: Laboratory Results - last 24 hr 05/05/23 05:55: Diff Path Review Reviewed 05/05/23 12:04: POC Glucose 323 H 05/05/23 16:55: POC Glucose 222 H 05/06/23 06:02: POC Glucose 242 H 05/06/23 08:05: WBC 4.6, RBC 4.19 L, Hgb 10.7 L, Hct 32.7 L, MCV 78.0 L, MCH 25.5 L, MCHC 32.7, RDW Std Deviation 48.0 H, RDW Coeff of Kailey 17.2 H, Plt Count 128 L, MPV 8.9, Neut % (Auto) Not Reportable, Absolute Neuts (auto) 3.9, Absolute Lymphs (auto) 0.36 L, Total Counted 100, Neutrophils % (Manual) 84 H, Band Neutrophils % 1, Lymphocytes % (Manual) 8 L, Metamyelocytes % 6 H, Myelocytes % 1 H, Nucleated RBCs/100 WBC 2, Diff Path Review March, Platelet Estimate SLT DEC, RBC Morphology NORM C+C Micro: Microbiology 05/03/23 03:50 Sputum, Expectorated/Coughed Gram Stain - Final 05/03/23 03:50 Sputum, Expectorated/Coughed Respiratory Culture - Final Mixed normal respiratory laure. No Streptococcus pneumoniae, beta-hemolytic Streptococcus or Staphylococcus aureus isolated. 05/02/23 11:09 Blood Culture (Wb) #2 - Anticubital Left Blood Culture - Preliminary No growth in 48 hours. 05/02/23 11:05 Blood Culture (Wb) - Port Blood Culture - Preliminary No growth in 48 hours. 05/03/23 06:35 Stool Stool Occult Blood (CRYSTAL) - Final Occult Blood Positive 05/02/23 17:15 Mucosa - Nasopharyngeal Respiratory Panel (PCR) - Final 05/02/23 12:16 Nasal Secretion SARS-CoV-2 Antigen (Rapid) - Final Radiography Diagnostic Testing: Radiology Impression Chest X-Ray 05/04/23 05:00 IMPRESSION: No definite acute or significant abnormality seen. Electronically Signed: Sami Gould MD at 17:12 EDT , Venous Doppler Study 05/04/23 12:54 Interpretation Summary Deep veins of the lower extremities are bilaterally patent and compressible segmentally. There is no evidence of deep vein thrombosis on either side. Valvular competence appears intact within the proximal deep venous systems bilaterally. The great saphenous veins appear bilaterally patent and compressible segmentally. Ordering Physician: Khalif Quevedo Performed By: Figueroa Osorio, RVT Rhythm Strip Rhythm Strip: Sinus Rhythm Rate: 90 Ectopy: None Physical Exam Const alert and no apparent distress Constitutional Narrative: Sitting upright in bed. General Appearance: cooperative HEENT normocephalic, head/scalp atraumatic and moist oral mucous membranes Eyes PERRL, EOMs intact bilaterally and conjunctivae normal Neck supple General: trachea midline Chest inspection of chest normal Resp normal respiratory effort Auscultation: diminished lung sounds; Negative for rales, rhonchi or wheezes Cardio regular rate and regular rhythm GI normal to inspection, nondistended, normoactive bowel sounds Extremity no clubbing, cyanosis or edema Skin no rashes or lesions noted Neuro oriented x3, CN's II-XII intact bilaterally and moves all extremities Psych cooperative and affect normal Charges/Coding Visit Charges Inpatient E&M: 07351 Subs Hosp L2
--- NOTE | 2023-05-06 11:05 | DCINST_ITS ---
Discharge Instructions Dressing / Incision Call your doctor if you observe: Shortness of breath Follow Up Care Test Results: Test results from this visit will be discussed in further detail at your follow- up appointment, if applicable. Discharge Plan Admission Admit Date/Time: 05/02/23 15:36 Primary Reason for Your Visit: pneumonitis Attending Provider: Khalif Quevedo Primary Care Provider: Jacob Jennings Consulting Providers: Thaddeus Patel; Benito Malcolm; Tu Zhang; Jm Varner; Monalisa Dunne NP; Tara Mae Instructions Additional Instructions / Restrictions: You presented with what appears to be pneumonitis. Unclear if that may be related with Keytruda or not. He will be on a prednisone taper and after that i s completed, resume your dexamethasone (Decadron). He also had GI bleed due to ulcers in your duodenum, which is part of your small bowel. You are going to be on pantoprazole (Protonix), sucralfate and misoprostol. The sucralfate and misoprostol will be only for 4 weeks. Also take iron the dosing will be every other day. You are a diabetic and this is certainly exacerbated by the steroids. You will be on medications with metformin. We will recheck her blood sugar at home. I would recommend checking it twice a day in the morning and the evening. Keep a record of that and be able to provide that to your primary care physician to see if further adjustments would need to be made. He also had a blood clot in your lung. The treatment is for blood thinners but do not start the blood thinner (apixaban) until the . Discharge Orders/Prescriptions Prescriptions: New Eliquis 5 mg Tablet 5 mg PO BID Qty: 60 0RF Rx Instructions: Start 05/08/2023 with 2 tabs twice daily for 5 days, then 1 tab twice daily ferrous sulfate [FeroSul] 325 mg (65 mg iron) Tablet 325 mg PO QODAY@1200 Qty: 14 0RF levofloxacin 750 mg Tablet 750 mg PO DAILY@0600 Qty: 1 0RF Rx Instructions: last dose is 05/07 misoprostol 200 mcg Tablet 200 mcg PO TIDCM Qty: 84 0RF sucralfate 1 gram Tablet 1 g PO TID@0700,1100,1600 28 Days Qty: 84 0RF prednisone 10 mg tablet 10 mg PO DAILY Qty: 30 0RF Rx Instructions: 4 tabs daily for 3 days, then 3 tabs daily for 3 days, then 2 tabs daily for 3 days, then 1 tab daily for 3 days metformin 500 mg tablet 500 mg PO BID Qty: 60 0RF pantoprazole [Protonix] 40 mg tablet,delayed release (DR/EC) 40 mg PO BID Qty: 60 0RF Continued carvedilol 25 mg tablet 25 mg PO BID Rx Instructions: must administer with a meal/food albuterol sulfate 90 mcg/actuation HFA aerosol inhaler 1 puff inhalation Q6H PRN (Reason: SOB) lidocaine-prilocaine 2.5-2.5 % cream 1 applic topical ONCE PRN (Reason: Port access ) 30 Days Qty: 30 2RF ipratropium-albuterol 0.5 mg-3 mg(2.5 mg base)/3 mL solution for nebulization 3 ml inhalation Q4H PRN (Reason: shortness of breath or wheezing) Qty: 180 3RF aspirin 81 MG tablet 81 mg PO DAILY rosuvastatin [Crestor] 40 MG tablet 40 mg PO DAILY amlodipine 10 mg tablet 10 mg PO DAILY esomeprazole magnesium [Nexium] 20 mg capsule,delayed release(DR/EC) 20 mg PO DAILY Qty: 30 0RF hydralazine 50 mg tablet 50 mg PO BID Held dexamethasone 4 mg tablet 2 mg PO DAILY Hold Instructions: Resume on 05/19/23. Patient Comments: TAKE 1 TABLET BY MOUTH TWICE A DAY Rx Instructions: states tapered down from the 4mg dose. Other Ambulatory Orders: Glucometer (Routine) Timeframe: 1 Day Location: Determined by Patient Ordered By: Dr. Khalif Quevedo Referrals / Follow Up: [facility] [Provider Group] - Within 3 Months *[facility] [Provider Group] - Within 2 Weeks [facility] [Provider Group] - 05/21/23 9:15 am Jacob Jennings DO [Primary Care Provider] - Within 2 Weeks Disposition Disposition (needs filled in before D/C Order can be placed): Home, Self Care
--- NOTE | 2023-05-06 11:21 | DS.PCM_ITS ---
Providers Date of Admission: 05/02/23 Primary Care Physician: Dr. Jacob Jennings, Consultations 05/02/23 16:41 Consult: Spiritual Care Coordinator / Pulmonary Medicine Routine Consulting Provider: Pulmonary Medicine kd Menjivar Reason for Consult: hypoxia/SOB EMERGENT Consult: No Notified: Yes Date Notified: 05/02/23 Time Notified: 17:26 Method of Notification: Text 05/03/23 12:16 Consult: Gastroenterology Routine Consulting Provider: [facility] Reason for Consult: GIB EMERGENT Consult: No Notified: Yes Date Notified: 05/03/23 Time Notified: 12:16 Method of Notification: Verbal Reason For Visit: HYPOXIA/SOB Diagnosis Discharge Diagnosis (1) Pneumonitis: Status: Acute Code(s): J18.9 - Pneumonia, unspecified organism Plan: Patient does not meet criteria for acute hypoxic respiratory failure Etiology is unclear: infectious/Keytruda induced pneumonitis/COPD exacerbation Pulm following. Testing: * CT of the chest demonstrated small chronic nonocclusive right lower lobe pulmonary embolus, new 3 mm spiculated right lower lobe nodule and left lower lobe pulmonary nodules measuring 8 mm suspicious for metastasis, progression of mild mediastinal and hilar lymphadenopathy, mild pneumonitis, bronchiectasis * COVID 19 and resp panel negative. SCx pending. BCx negative. Treatment * Continue Levaquin 750 mg daily through the . * IV steroids 40 every 12h and hold home Decadron-Transition back to Decadron at discharge. Steroid taper at discharge. * Aggressive pulmonary toilet: I-S/Acapella * Patient had echocardiogram done on January 13, 2023 that showed an EF of 65% and no evidence of diastolic dysfunction (2) Pulmonary emboli: Status: Acute Code(s): I26.99 - Other pulmonary embolism without acute cor pulmonale Plan: Suspect malignancy-induced Right lower lobe nonocclusive PE Hold anticoagulation--> patient with guaiac positive stool and drop in hemoglobin along with iron deficiency anemia Not likely etiology for acute shortness of breath and hypoxia No signs of cardiac strain Duplex of LE negative If H/H remain stable, could reintroduce anticoagulation. Would not resume until the . (3) Diabetes mellitus, type 2: Status: Acute Code(s): E11.9 - Type 2 diabetes mellitus without complications Plan: Likely steroid-induced Hemoglobin A1c was 7.4 consistent with diabetes Accu-Cheks Sliding scale insulin We will likely plan for diet control at discharge (4) Adenocarcinoma of right lung: Status: Acute Code(s): C34.91 - Malignant neoplasm of unspecified part of right bronchus or lung Plan: Poorly differentiated adenocarcinoma of the lung/metastatic left renal cell carcinoma Left radical nephrectomy 2005January 28, 2021--> Greening CT of chest showed spiculated partially cavitary mass in the right lower lobe--> CT-guided biopsy demonstrated moderately to poorly differentiated adenocarcinoma of the lung primary--> March 2021 VATS converted to right muscle-sparing thoracotomy with right lower lobectomy, right upper lobe wedge resection and right middle lobe wedge resection with mediastinal lymph node dissection (positive lymph nodes noted at this time)--> MRI October 2022 showed 1.6 cm enhancing mass in the left posterior parietal lobe concerning for hemorrhagic metastasis and large surrounding edema--> follow-up MRI December 16, 2022 shows increasing size of metastatic mass in the left posterior parietal lobe--> CT of chest abdomen pelvis December 29, 2022 showed persistent solid mass in the lower pole of the right kidney with slight increase in size since August, chronic interstitial changes in both lungs--> follow-up MRI January 2023 shows persistent hemorrhagic metastasis--> follow-up chest abdomen pelvis CT March 13, 2023 shows an enlarged right posterior mediastinal lymph node and stable 4.2 cm right renal mass--> MRI brain March 2023 shows doubling in size of mass in the posterior medial aspect of the left parietal lobe with surrounding vasogenic edema that had slightly increased and no further metastatic lesions--> MRI spectroscopy April 16, 2023 showed spectroscopy and perfusion findings medial and dorsal aspects of the treated presumed left parietal metastasis compatible with viable tumor with more extensive surrounding radiation necrosis May 07, 2021 pembrolizumab plus axitinib for metastatic RCC/Axitinib discontinued May 2021 due to hypertensive crisis Keytruda single agent May 07 ?July 30,? 2020 (5 cycles)? [facility] but held in August 2021 due to ELANA.? Resumed November 26, 2021 Stereotactic brain radiation at [facility] October 28, 2022 a single fraction with [address] of chest at this time shows new findings in the lung Follow up neurosurgery as outpt. (5) Anemia: Status: Acute Code(s): D64.9 - Anemia, unspecified Plan: microcytic iron low, ferritin high, however. will change iron to Ferrous sulfate 325 QOD. (6) Duodenal ulcer: Status: Acute Code(s): K26.9 - Duodenal ulcer, unspecified as acute or chronic, without hemorrhage or perforation Plan: Multiple. EGD on 05/04: Visible vessel that was injected. Another w non-bleeding pigmented material that was treated with a heater probe. FLD Pantoprazole gtt for 72h then BID dosing Per GI, sucralfate 1 g TID, misoprostol 200 TID for 4 weeks. BID PPI Plan Chronic conditions: * CAD/hypertension/wnbodubemijhvi-MQC-PAD-LPLB w/ 2.25 x 18 mm Biodivysio Stent x 2, BMS-OM1 w/ 2.25 x 18 mm Biodivysio Stent and 2.25 x 18 mm Pixel Stent and MARVIN-Prox LCx w/ 3.5 x 18 mm Cypher Stent 07/17/2003-Hold home aspirin for now and restart when okay with GI-Continue home amlodipine-continue home carvedilol-Continue home rosuvastatin-Continue home hydralazine * Microcytic anemia-1 g hemoglobin drop overnight-Hold anticoagulation-Cons istent with iron deficiency-EGD for tomorrow-IV iron x3 days 200 mg-We will need to discharge on oral iron * Thrombocytopenia-Appears to be chronic and is stable-Likely related to ongoing chemotherapy and cancer treatment-Counts are stable and greater than 100,000 * Aortic valve bhkrrpes-Zrrx-Wy acute issues-Most recent echocardiogram shows stability * COPD-PFTs show only mild large airway obstructive ventilatory defect-O2 d ependent at baseline-No exertional hypoxemia noted on 6-minute walk test earlier this year-Continued outpatient follow-up with pulmonary medicine after discharge DVT prophylaxis -Fully anticoagulated with Eliquis CODE STATUS -Full code verified on admission DC home after PPI gtt completed. Medications at Discharge Home Medications aspirin 81 mg tablet,delayed release 81 mg PO DAILY HEART HEALTH 08/18/18 rosuvastatin 40 mg tablet (Crestor) 40 mg PO DAILY CHOLESTEROL 08/18/18 carvedilol 25 mg tablet 25 mg PO BID blood pressure 04/30/21 albuterol sulfate 90 mcg/actuation aerosol inhaler 1 puff inhalation Q6H PRN SOB 05/31/21 hydralazine 50 mg tablet 50 mg PO BID diuretic 05/31/21 lidocaine-prilocaine 2.5 %-2.5 % topical cream 1 applic topical ONCE PRN Port access 30 days #30 grams 01/28/22 amlodipine 10 mg tablet 10 mg PO DAILY Check with primary doctor 11/19/22 esomeprazole magnesium 20 mg capsule,delayed release (Nexium) 20 mg PO DAILY #30 caps 11/21/22 ipratropium 0.5 mg-albuterol 3 mg (2.5 mg base)/3 mL nebulization soln 3 ml inhalation Q4H PRN shortness of breath or wheezing #180 mL 11/24/22 dexamethasone 4 mg tablet 2 mg PO DAILY steroid 05/02/23 apixaban 5 mg tablet (Eliquis) 5 mg PO BID #60 tabs 05/06/23 ferrous sulfate 325 mg (65 mg iron) tablet (FeroSul) 325 mg PO QODAY@1200 #14 tabs 05/06/23 levofloxacin 750 mg tablet 750 mg PO DAILY@0600 #1 TAB 05/06/23 metformin 500 mg tablet 500 mg PO BID #60 tabs 05/06/23 misoprostol 200 mcg tablet 200 mcg PO TIDCM #84 tabs 05/06/23 pantoprazole 40 mg tablet,delayed release (Protonix) 40 mg PO BID #60 tabs 05/06/23 prednisone 10 mg tablet 10 mg PO DAILY #30 tabs 05/06/23 sucralfate 1 gram tablet 1 g PO TID@0700,1100,1600 4 weeks #84 tabs 05/06/23 Hospital Course Operations None Summary of Care Provided Minutes Spent on Discharge: 35 Hospital Course: Patient presents with hypoxia. [place] to be due to his underlying COPD but also possibility of pneumonitis. Pneumonitis may have been possibly Keytruda induced. Patient was started on methylprednisolone with bronchodilators and levofloxacin., From respiratory standpoint, he has steadily improved. Patient will be discharged with a prednisone taper and then resume his 2 mg of dexamethasone. Patient also had a PE is nonocclusive not felt to be the underlying cause of his respiratory distress. Patient was started on apixaban but then was anemic and had heme positive stools. That was held. Patient underwent GI work-up and was found to have duodenal ulcers some bleeding some not. Those were treated via EGD. Patient will continue with pantoprazole, sucralfate and misoprostol. Patient will hold off on his apixaban until the . Patient also diabetic with an A1c of 7.4. This certainly exacerbated by steroids. Patient will be discharged with metformin and instructed to check his blood sugar twice daily until things stabilize further. Weight / BMI Weight Weight: 74.843 kg Body Mass Index (BMI) 29.8 ABG / Lab / Microbiology Data 05/06/23 08:05 05/05/23 05:55 Laboratory: Laboratory Results - last 24 hr 05/05/23 05:55: Diff Path Review Reviewed 05/05/23 12:04: POC Glucose 323 H 05/05/23 16:55: POC Glucose 222 H 05/06/23 06:02: POC Glucose 242 H 05/06/23 08:05: WBC 4.6, RBC 4.19 L, Hgb 10.7 L, Hct 32.7 L, MCV 78.0 L, MCH 25.5 L, MCHC 32.7, RDW Std Deviation 48.0 H, RDW Coeff of Kailey 17.2 H, Plt Count 128 L, MPV 8.9, Neut % (Auto) Not Reportable, Absolute Neuts (auto) 3.9, Absolute Lymphs (auto) 0.36 L, Total Counted 100, Neutrophils % (Manual) 84 H, Band Neutrophils % 1, Lymphocytes % (Manual) 8 L, Metamyelocytes % 6 H, Myelocytes % 1 H, Nucleated RBCs/100 WBC 2, Diff Path Review March, Platelet Estimate SLT DEC, RBC Morphology NORM C+C Microbiology: Microbiology 05/03/23 03:50 Sputum, Expectorated/Coughed Gram Stain - Final 05/03/23 03:50 Sputum, Expectorated/Coughed Respiratory Culture - Final Mixed normal respiratory laure. No Streptococcus pneumoniae, beta-hemolytic Streptococcus or Staphylococcus aureus isolated. 05/02/23 11:09 Blood Culture (Wb) #2 - Anticubital Left Blood Culture - Preliminary No growth in 48 hours. 05/02/23 11:05 Blood Culture (Wb) - Port Blood Culture - Preliminary No growth in 48 hours. 05/03/23 06:35 Stool Stool Occult Blood (CRYSTAL) - Final Occult Blood Positive 05/02/23 17:15 Mucosa - Nasopharyngeal Respiratory Panel (PCR) - Final 05/02/23 12:16 Nasal Secretion SARS-CoV-2 Antigen (Rapid) - Final D/C Instructions Call your doctor if you observe: Shortness of breath Meaningful Use Info Meaningful Use Diagnoses (Choose all that apply): None applicable Discharge Plan Admission Admit Date/Time: 05/02/23 15:36 Primary Reason for Your Visit: pneumonitis Attending Provider: Khalif Quevedo Primary Care Provider: Jacob Jennings Consulting Providers: Thaddeus Patel; Benito Malcolm; Tu Zhang; Jm Varner; Monalisa Dunne NP; Tara aMe Instructions Additional Instructions / Restrictions: You presented with what appears to be pneumonitis. Unclear if that may be related with Keytruda or not. He will be on a prednisone taper and after that is completed, resume your dexamethasone (Decadron). He also had GI bleed due to ulcers in your duodenum, which is part of your small bowel. You are going to be on pantoprazole (Protonix), sucralfate and misoprostol. The sucralfate and misoprostol will be only for 4 weeks. Also take iron the dosing will be every other day. You are a diabetic and this is certainly exacerbated by the steroids. You will be on medications with metformin. We will recheck her blood sugar at home. I would recommend checking it twice a day in the morning and the evening. Keep a record of that and be able to provide that to your primary care physician to see if further adjustments would need to be made. He also had a blood clot in your lung. The treatment is for blood thinners but do not start the blood thinner (apixaban) until the . Discharge Orders/Prescriptions Prescriptions: New Eliquis 5 mg Tablet 5 mg PO BID Qty: 60 0RF Rx Instructions: Start 05/08/2023 with 2 tabs twice daily for 5 days, then 1 tab twice daily ferrous sulfate [FeroSul] 325 mg (65 mg iron) Tablet 325 mg PO QODAY@1200 Qty: 14 0RF levofloxacin 750 mg Tablet 750 mg PO DAILY@0600 Qty: 1 0RF Rx Instructions: last dose is 05/07 misoprostol 200 mcg Tablet 200 mcg PO TIDCM Qty: 84 0RF sucralfate 1 gram Tablet 1 g PO TID@0700,1100,1600 28 Days Qty: 84 0RF prednisone 10 mg tablet 10 mg PO DAILY Qty: 30 0RF Rx Instructions: 4 tabs daily for 3 days, then 3 tabs daily for 3 days, then 2 tabs daily for 3 days, then 1 tab daily for 3 days metformin 500 mg tablet 500 mg PO BID Qty: 60 0RF pantoprazole [Protonix] 40 mg tablet,delayed release (DR/EC) 40 mg PO BID Qty: 60 0RF Continued carvedilol 25 mg tablet 25 mg PO BID Rx Instructions: must administer with a meal/food albuterol sulfate 90 mcg/actuation HFA aerosol inhaler 1 puff inhalation Q6H PRN (Reason: SOB) lidocaine-prilocaine 2.5-2.5 % cream 1 applic topical ONCE PRN (Reason: Port access ) 30 Days Qty: 30 2RF ipratropium-albuterol 0.5 mg-3 mg(2.5 mg base)/3 mL solution for nebulization 3 ml inhalation Q4H PRN (Reason: shortness of breath or wheezing) Qty: 180 3RF aspirin 81 MG tablet 81 mg PO DAILY rosuvastatin [Crestor] 40 MG tablet 40 mg PO DAILY amlodipine 10 mg tablet 10 mg PO DAILY esomeprazole magnesium [Nexium] 20 mg capsule,delayed release(DR/EC) 20 mg PO DAILY Qty: 30 0RF hydralazine 50 mg tablet 50 mg PO BID Held dexamethasone 4 mg tablet 2 mg PO DAILY Hold Instructions: Resume on 05/19/23. Patient Comments: TAKE 1 TABLET BY MOUTH TWICE A DAY Rx Instructions: states tapered down from the 4mg dose. Other Ambulatory Orders: Glucometer (Routine) Timeframe: 1 Day Location: Determined by Patient Ordered By: Dr. Khalif Quevedo Referrals / Follow Up: [facility] [Provider Group] - Within 3 Months *[facility] [Provider Group] - Within 2 Weeks [facility] [Provider Group] - 05/21/23 9:15 am Jacob Jennings DO [Primary Care Provider] - Within 2 Weeks Disposition Disposition (needs filled in before D/C Order can be placed): Home, Self Care Charges/Coding Visit Charges Inpatient E&M: 12428 Disch Hosp >30min
[2023-05-06] MEDS: Ferrous Sulfate 325 MG Tablet PO (11:35)
[2023-05-06] MEDS: Sucralfate 1 GM Tablet PO (11:35)
[2023-05-06] MEDS: miSOPROStol 200 MCG Tablet PO (11:37)
[2023-05-06 11:53] LABS: Bedside Glucose 324 mg/dL (74-106)
--- NOTE | 2023-05-06 13:16 | CASEMGMT ---
LUPE CM into pt room, pt and aware that pt qualifies for home oxygen at 2L with exertion. Discussed homegoing oxygen instructions, pt verbalized understanding. Pt has a pox at home. Pt is newly diabetic. Provided pt with a rx for a BGM. Discussed HHC for education but pt reports he is not homebound. Pt states he feels he can do this at home on own. Pt aware he will be on eliquis. TC to [employer], cost is $520. Provided pt with an eliquis savings card with explanation. Pt and deny further needs. Referral sent to [facility] via [facility] for oxygen.
[2023-05-06] MEDS: 0.9% Saline Lock 10 ML Syringe IV (14:18)
--- NOTE | 2023-05-06 16:24 | EX.PCM.PN.GI ---
Subjective Subjective Patient has been doing well. He still remains on steroid therapy. He does not have any abdominal pain. He does not have any cramping. His hemoglobin seems to be stable. Objective Data Objective Data Vital Signs: Vital Signs Temp Pulse Resp BP Pulse Ox O2 Del Method O2 Flow Rate 97.7 F L 87 16 126/64 H 93 Room Air 2 05/06/23 09:04 05/06/23 14:19 05/06/23 14:19 05/06/23 14:19 05/06/23 14:19 05/06/23 14:19 05/06/23 12:02 Oxygen Flow Rate (L/min) [ 2 AMBULATING with Oxygen #1] Oxygen Flow Rate (L/min) 2 Oxygen Delivery Method Room Air Weight: 165 lb 0.009 oz Body Mass Index (BMI) 29.8 Intake & Output: Intake and Output for Last 24 Hours 05/04/23 05/05/23 05/06/23 23:59 23:59 23:59 Intake Total 770 / 770 2250 / 2250 500 / 500 Output Total 0 / 0 Balance 770 / 770 2250 / 2250 500 / 500 Lab / Micro Data 05/06/23 08:05 05/05/23 05:55 Labs: Laboratory Results - last 24 hr 05/05/23 05:55: Diff Path Review Reviewed 05/05/23 16:55: POC Glucose 222 H 05/06/23 06:02: POC Glucose 242 H 05/06/23 08:05: WBC 4.6, RBC 4.19 L, Hgb 10.7 L, Hct 32.7 L, MCV 78.0 L, MCH 25.5 L, MCHC 32.7, RDW Std Deviation 48.0 H, RDW Coeff of Kailey 17.2 H, Plt Count 128 L, MPV 8.9, Neut % (Auto) Not Reportable, Absolute Neuts (auto) 3.9, Absolute Lymphs (auto) 0.36 L, Total Counted 100, Neutrophils % (Manual) 84 H, Band Neutrophils % 1, Lymphocytes % (Manual) 8 L, Metamyelocytes % 6 H, Myelocytes % 1 H, Nucleated RBCs/100 WBC 2, Diff Path Review May foll, Platelet Estimate SLT DEC, RBC Morphology NORM C+C 05/06/23 11:34: POC Glucose 324 H Micro: Microbiology 05/03/23 03:50 Sputum, Expectorated/Coughed Gram Stain - Final 05/03/23 03:50 Sputum, Expectorated/Coughed Respiratory Culture - Final Mixed normal respiratory laure. No Streptococcus pneumoniae, beta-hemolytic Streptococcus or Staphylococcus aureus isolated. 05/02/23 11:09 Blood Culture (Wb) #2 - Anticubital Left Blood Culture - Preliminary No growth in 48 hours. 05/02/23 11:05 Blood Culture (Wb) - Port Blood Culture - Preliminary No growth in 48 hours. 05/03/23 06:35 Stool Stool Occult Blood (CRYSTAL) - Final Occult Blood Positive 05/02/23 17:15 Mucosa - Nasopharyngeal Respiratory Panel (PCR) - Final 05/02/23 12:16 Nasal Secretion SARS-CoV-2 Antigen (Rapid) - Final Rhythm Strip Rhythm Strip: Sinus Rhythm Rate: 90 Ectopy: None Physical Exam Const alert and no apparent distress Constitutional Narrative: Sitting upright in bed. General Appearance: cooperative HEENT normocephalic, head/scalp atraumatic and moist oral mucous membranes Eyes PERRL, EOMs intact bilaterally and conjunctivae normal Neck supple General: trachea midline Chest inspection of chest normal Resp normal respiratory effort Auscultation: diminished lung sounds; Negative for rales, rhonchi or wheezes Cardio regular rate and regular rhythm GI normal to inspection, nondistended, normoactive bowel sounds Extremity no clubbing, cyanosis or edema Skin no rashes or lesions noted Neuro oriented x3, CN's II-XII intact bilaterally and moves all extremities Psych cooperative and affect normal Assessment & Plan Assessment/Plan (1) GI bleed: (2) Anemia: QUALIFIERS: Anemia type: iron deficiency Iron deficiency anemia type: unspecified iron deficiency Qualified Code(s): D50.9 - Iron deficiency anemia, unspecified PLAN: Plan 67-year-old gentleman with history of metastatic renal cell carcinoma to the lungs and brain (on steroids) status post VATS surgery, chemotherapy, on Keytruda who develops worsening shortness of breath and discovered to have pneumonia and pulmonary emboli. He was also discovered to have worsening iron deficiency anemia with decrease in blood count after undergoing anticoagulation. Recommendation: Duodenal ulcers-continue PPI drip. Continue to hold anticoagulation. He will need sulcal fate 1 g p.o. 3 times daily or misoprostol 200 mg p.o. 3 times daily for 4 weeks along with Protonix 40 mg twice a day. Continue to monitor H&H. Charges/Coding Visit Charges Inpatient E&M: 96893 Subs Hosp L3
[2023-05-07 13:19] LABS: Pathologist Review Reviewed
== END 2023-05-06 14:28 | disposition home or self-care (01) | DRG 205 ==
LOC: ED 15:39 → MS3 16:19
PROVIDERS: Anesthesiology; Internal Medicine Critical Care Medicine; Internal Medicine Gastroenterology; Admitting Provider Internal Medicine; Emergency Provider Emergency Medicine; PCP Family Medicine
PROC: 0DJ08ZZ Inspection of Upper Intestinal Tract, Via Natural or Artificial Opening Endoscopic (ICD-10-PCS; CPT 43235; principal; 2023-05-04 12:25)
DX: J70.2 Acute drug-induced interstitial lung disorders (principal); K26.4 Chronic or unspecified duodenal ulcer with hemorrhage; G93.6 Cerebral edema; C78.01 Secondary malignant neoplasm of right lung; C64.2 Malignant neoplasm of left kidney, except renal pelvis; I27.82 Chronic pulmonary embolism; J47.0 Bronchiectasis with acute lower respiratory infection; C79.31 Secondary malignant neoplasm of brain; D69.59 Other secondary thrombocytopenia; E11.65 Type 2 diabetes mellitus with hyperglycemia; D50.0 Iron deficiency anemia secondary to blood loss (chronic); I25.10 Atherosclerotic heart disease of native coronary artery without angina pectoris; E78.5 Hyperlipidemia, unspecified; I10 Essential (primary) hypertension; I35.0 Nonrheumatic aortic (valve) stenosis; K44.9 Diaphragmatic hernia without obstruction or gangrene; K31.89 Other diseases of stomach and duodenum; R09.02 Hypoxemia; T45.1X5A Adverse effect of antineoplastic and immunosuppressive drugs, initial encounter; R59.0 Localized enlarged lymph nodes; Z90.5 Acquired absence of kidney; Z95.5 Presence of coronary angioplasty implant and graft; Z79.01 Long term (current) use of anticoagulants; Z79.82 Long term (current) use of aspirin; Z79.84 Long term (current) use of oral hypoglycemic drugs; Z79.52 Long term (current) use of systemic steroids; Z79.899 Other long term (current) drug therapy; Z87.891 Personal history of nicotine dependence; Z86.16 Personal history of COVID-19
CPT/HCPCS: 36415; 36591; 71045; 71275; 80048; 80053; 82274; 82728; 82962; 83036; 83540; 83550; 83605; 83735; 83880; 84100; 84145; 84443; 84484; 85025; 85610; 85730; 87040; 87070; 87205; 87633; 87811; 88305; 93005; 93970; 94640; 94668; 97802; 99252; 99284; J7030; J7040; J7050; Q9967; A4216; G0463; J2405; J2916; J3490

== ENCOUNTER → 2023-07-01 | Outpatient (CLI) | payer MEDICARE, OTHER, SELFPAY ==
--- NOTE | 2023-07-01 08:20 | CT_ITS ---
STUDY: CT CHEST, ABDOMEN T PELVIS WITH CONTRAST REASON FOR EXAM: Male, 67 years old. F/U [facility]S KIDNEY CANCER IV CONT ONLY RADIATION DOSAGE (If Supplied By Facility): CTDIvol = ( 16.88 ) mGy, DLP = ( 1581.72 ) mGycm TECHNIQUE: Transaxial imaging was performed following intravenous administration of IV 100mL Isovue-300. Individualized dose optimization techniques were used for this CT. COMPARISON: May 02, 2023 FINDINGS: CHEST The lungs are well expanded with mild peripheral interstitial thickening. There is no demonstrated pleural abnormality. Normal heart and pericardium. Mild right paratracheal adenopathy. Normal hilar regions. Normal unenhanced pulmonary arteries. Normal aorta arch and descending thoracic aorta. Normal osseous structures. ABDOMEN 11 mm probable cyst in the right lobe of the liver. Normal gallbladder and extrahepatic biliary system. Normal spleen. Normal pancreas. Normal bilateral adrenal glands. Relatively stable 4 cm posterior cortical mass of the right kidney, likely malignant. 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 Status post resection of the left kidney. Normal visualized stomach. Normal small intestine. Normal colon. The appendix is visualized and appears normal. Calcified abdominal aorta. Normal inferior vena cava. Normal retroperitoneum. Stable hernia containing bowel loops through the left lateral abdominal wall. Normal osseous structures. PELVIS Normal urinary bladder. Normal visualized small intestine. Normal visualized colon. There is no pelvic fluid. There is no pelvic lymphadenopathy or mass lesion. Normal visualized pelvic arteries. CT/CT Chest, Abd, Pel w/Contrast IMPRESSION: Stable probable hepatic cyst. Relatively stable right renal masses as noted. Status post left nephrectomy. Mild peripheral interstitial thickening in the lungs. Mild mediastinal adenopathy. Electronically Signed: Michael Gupta DO at 12:38 EDT ,
== END | disposition home or self-care (01) ==
LOC: CT 08:14
PROVIDERS: PCP Family Medicine; Referring Provider Internal Medicine Hematology & Oncology; Visit Provider Internal Medicine Hematology & Oncology
DX: C64.1 Malignant neoplasm of right kidney, except renal pelvis (principal); C79.31 Secondary malignant neoplasm of brain; C79.70 Secondary malignant neoplasm of unspecified adrenal gland; C34.31 Malignant neoplasm of lower lobe, right bronchus or lung; C77.9 Secondary and unspecified malignant neoplasm of lymph node, unspecified
CPT/HCPCS: 71260; 74177; Q9967

== ENCOUNTER → 2023-09-02 | Outpatient (CLI) | payer MEDICARE, OTHER, SELFPAY ==
--- NOTE | 2023-09-02 12:16 | CT_ITS ---
STUDY: CTA CHEST REASON FOR EXAM: Male, 67 years old. New onset hypoxemia. History of lung cancer with the right lobe lower lobectomy. RADIATION DOSAGE (If Supplied By Facility): CTDIvol = ( 9.99 ) mGy, DLP = ( 512.48 ) mGycm TECHNIQUE: The examination was performed with the intravenous administration of IV 75mL Isovue-370. Post-processing of the angiographic images was performed, with multiplanar reformation and 3D reconstruction. Individualized dose optimization techniques were used for this CT. COMPARISON: Comparison is made with prior study dated May 02, 2023. FINDINGS: Normal enhancement of the main pulmonary artery and right and left pulmonary arteries. Normal enhancement of the bilateral peripheral pulmonary arteries. There is no demonstrated pulmonary embolism. There is atherosclerotic calcification of the aortic arch with tortuosity. There is no demonstrated aortic dissection. There are calcifications of the coronary arteries. There are visualized mediastinal lymph nodes, which are within normal size limits, and with normal morphology. Normal hilar regions. Normal visualized trachea and bronchi. There now is evidence of increased interstitial markings in the right upper lobe as well as the right middle lobe and right lower lobe. Increased linear markings with areas of confluence is also seen in the liver; the left upper lobe. This may represent early bilateral pulmonary infiltrates. Stable soft tissue density in the posterior medial segment of the right lower lobe most likely postoperative changes. Normal pleura. Normal chest wall structures. There are degenerative changes of thoracic spine. Normal visualized upper abdomen. CT/CTA Chest W/WO Contrast IMPRESSION: Increased interstitial markings in the right upper lobe as well as right middle lobe and right lower lobes as well as the left upper lobe. Early infiltrate should be ruled out. Status post partial resection of the right lower lobe. Electronically Signed: Musa Crooks MD at 12:56 EDT ,
[2023-09-02] MEDS: 0.9 % NaCl (Sterile) Posiflush 10 mL IV (12:36)
== END | disposition home or self-care (01) ==
LOC: CT 12:15
PROVIDERS: PCP Family Medicine; Referring Provider Internal Medicine Critical Care Medicine; Visit Provider Internal Medicine Critical Care Medicine
DX: R09.02 Hypoxemia (principal)
CPT/HCPCS: 71275; Q9967; A4216

== ENCOUNTER → 2023-10-05 | Outpatient (CLI) | payer MEDICARE, OTHER, SELFPAY ==
--- NOTE | 2023-10-05 07:32 | CT_ITS ---
STUDY: CT CHEST, ABDOMEN T PELVIS WITH CONTRAST REASON FOR EXAM: Male, 68 years old. F/U METASTATIC KIDNEY CA; IV ONLY RADIATION DOSAGE (If Supplied By Facility): CTDIvol = ( 18.55 ) mGy, DLP = ( 1972.78 ) mGycm TECHNIQUE: Transaxial imaging was performed following intravenous administration of IV 100mL Isovue-370. Individualized dose optimization techniques were used for this CT. COMPARISON: Prior studies dated: 03/13/2023, 07/01/2023 and 07/03/2023 FINDINGS: CHEST Interstitial and groundglass opacities/infiltrates improved since the previous exam likely due to resolving pneumonia. Persistent focal pleural-based density in the right middle lobe with adjacent stranding essentially unchanged likely due to scarring. No evidence of new pulmonary nodules. No pleural effusions. Normal heart and pericardium. There are calcifications of the coronary arteries. Stable right paratracheal and mediastinal nodes. No evidence of new mediastinal adenopathy. No evidence of hilar adenopathy. No evidence of central pulmonary embolism. There is atherosclerotic calcification of the aortic arch and descending thoracic aorta. Normal osseous structures. ABDOMEN Essentially stable right lobe liver cyst. No other focal lesions are identified. Normal gallbladder and extrahepatic biliary system. Normal spleen. Normal pancreas. Unremarkable left adrenal gland. Stable 4 cm mass in the lower pole of the right kidney again concerning for malignancy. 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 Status post left nephrectomy. Normal visualized stomach. Normal in caliber small bowel loops. The cecum is fluid-filled. The appendix is visualized and appears normal. There is diffuse atherosclerotic calcification of the abdominal aorta with elongation and tortuosity, but without a demonstrated aneurysm. Normal inferior vena cava. Normal retroperitoneum. [Lateral ventral hernia containing small bowel loops and colon without evidence of obstruction unchanged. A small umbilical hernia containing fat. No demonstrated destructive bony process. PELVIS The bladder is not well distended. There is no pelvic fluid. There is no pelvic lymphadenopathy or mass lesion. There is diffuse atherosclerotic calcification of the pelvic arteries. There are bilateral inguinal hernias containing fat. No demonstrated destructive bony process. CT/CT Chest, Abd, Pel w/Contrast IMPRESSION: 1. Improved bilateral hazy groundglass opacities/infiltrates. 2. Right middle lobe pleural-based density likely due to scarring and postoperative changes unchanged. 3. No evidence of new metastatic disease. 4. Status post left nephrectomy. 5. Left lateral ventricle hernia containing bowel loops and colon without evidence of obstruction unchanged. 6. Bilateral inguinal hernias containing fat. 7. No focal acute inflammatory process. Electronically Signed: Corey Conrad MD at 12:41 EST ,
[2023-10-05] MEDS: 0.9 % NaCl (Sterile) Posiflush 10 mL IV (07:53)
== END | disposition home or self-care (01) ==
LOC: CT 07:31
PROVIDERS: PCP Family Medicine; Referring Provider Internal Medicine Hematology & Oncology; Visit Provider Internal Medicine Hematology & Oncology
DX: C64.1 Malignant neoplasm of right kidney, except renal pelvis (principal)
CPT/HCPCS: 71260; 74177; Q9967; A4216

== ENCOUNTER 2023-10-18 09:40 | Emergency (ER) | payer MEDICARE, OTHER, SELFPAY ==
[2023-10-18 09:41] VITALS: BP 127/105; PULSE 81; RESP 16; TEMP 36.4; O2SAT 100
[2023-10-18 09:56] VITALS: BP 130/68; PULSE 78; RESP 20; O2SAT 96
[2023-10-18 10:13] LABS: Bedside Glucose 122 mg/dL (74-106)
--- NOTE | 2023-10-18 10:25 | EX.ED.DYSGE1 ---
HPI History of Present Illness Chief Complaint: Neuro S/Sx Informant: patient and spouse/S.O. Onset/Context/Timing Onset: Today Context: Sudden Onset Timing: Intermittent and Lasts (1-1/2 hours) Quality: Confusion Location: Generalized Worsened by: Nothing Relieved by: Nothing Narrative Narrative: Patient presents with confusion that began this morning. Patient states he could not remember how to change the channel on his TV. states the patient was acting confused about other things as well. Patient states this lasted approximately 1-1/2 hours. Patient states he feels better since he got to the emergency department. Patient admits to some paresthesias over the right upper and lower extremities. Patient denies any weakness. Patient states he did fall 5 days ago. Patient is unsure if he hit his head at that time. Patient does not think he had any loss of consciousness. Patient is on Eliquis. Patient denies any chest pain or shortness of breath. [facility] Medical History Abnormal colonoscopy Adenocarcinoma of right lung Alcohol use Anemia Atherosclerotic heart disease of [place] coronary artery without angina pectoris 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 Contact with or suspected exposure to other viral communicable disease COPD (chronic obstructive pulmonary disease) COPD (chronic obstructive pulmonary disease) COVID-19 Diabetes mellitus, type 2 Diarrhea Duodenal ulcer Dyspnea Easy bruising Elevated troponin (05/15/21) Encephalopathy (05/15/21) Encounter for immunotherapy Encounter for immunotherapy Epistaxis Essential (primary) hypertension Former smoker Frequent headaches Gastric reflux History of primary malignant neoplasm of left kidney Hx of radiation therapy Hyperglycemia Hyperlipidemia Hypokalemia Hyponatremia Imbalance Iron deficiency anemia due to chronic blood loss 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 Nonrheumatic aortic (valve) stenosis with insufficiency Pneumonia Port-A-Cath in place Pulmonary emboli Seizure (05/15/21) Sinus congestion Skin cancer Thrombocytopenia Wears dentures Wears glasses Home Medications rosuvastatin 40 mg tablet (Crestor) 40 mg PO DAILY CHOLESTEROL 08/18/18 [History Last Taken 06/12/21] carvedilol 25 mg tablet 25 mg PO BID blood pressure 04/30/21 [History Last Taken 06/13/21] albuterol sulfate 90 mcg/actuation aerosol inhaler 1 puff inhalation Q6H PRN SOB 05/31/21 [History Last Taken 06/12/21] hydralazine 50 mg tablet 50 mg PO BID diuretic 05/31/21 [History Last Taken 06/13/21] lidocaine-prilocaine 2.5 %-2.5 % topical cream 1 applic topical ONCE PRN Port access 30 days #30 grams 01/28/22 [Rx Last Taken Unknown] dexamethasone 4 mg tablet 2 mg PO DAILY steroid 05/02/23 [History Last Taken Unknown] pantoprazole 40 mg tablet,delayed release (Protonix) 40 mg PO BID #60 tabs 05/06/23 [Rx Last Taken Unknown] apixaban 5 mg tablet (Eliquis) 2.5 mg (1/2 x 5 mg) PO BID #60 tabs 07/20/23 [Rx Last Taken Unknown] amlodipine 10 mg tablet 10 mg PO DAILY Check with primary doctor #90 tabs 08/21/23 [Rx Last Taken Unknown] ipratropium 0.5 mg-albuterol 3 mg (2.5 mg base)/3 mL nebulization soln 3 ml inhalation Q4H PRN shortness of breath or wheezing #180 mL 09/07/23 [Rx Last Taken Unknown] guaifenesin 1,200 mg tablet, extended release 12 hr 1,200 mg PO Q12H #60 tabs 09/11/23 [Rx Last Taken Unknown] Allergy/AdvReac Type Severity Reaction Status Date / Time No Known Allergies Allergy Verified 10/07/23 09:38 Family History Sister Diabetes CAD (coronary artery disease) Mother CVA (cerebral vascular accident) CAD (coronary artery disease) Lung cancer Father CAD (coronary artery disease) Brother CAD (coronary artery disease) Surgical History History of cataract surgery History of coronary angioplasty (01/05/04) History of coronary artery stent placement (07/17/03) History of lobectomy of lung History of nephrectomy, left Social History Smoking Status: Former smoker Tobacco: How many years used: 40 second hand exposure: No alcohol intake: current alcohol intake frequency: a few times a month Alcohol type: beer substance use type: does not use seatbelt use: always do you feel safe at home: Yes ROS ROS ED Constitutional Constitutional ED: Denies chills or fever(s) Eyes Eyes: Denies blurry vision or change in vision ENT ENT ED: Denies rhinorrhea or sore throat Cardiovascular Cardiovascular: Denies chest pain or palpitations Respiratory/Chest Respiratory/Chest: Denies cough or dyspnea Gastrointestinal Gastrointestinal: Denies nausea or vomiting Genitourinary Genitourinary ED: Denies dysuria or hematuria Musculoskeletal Musculoskeletal: Denies back pain or neck pain Integumentary Reports Abrasions; Denies abscess or rash Neurologic Neurologic: Reports paresthesias RUE and RLE; Denies headache(s) or weakness Allergic/Immunologic Allergic/Immunologic ED: Denies mouth swelling or urticaria EXAM Physical Exam Const Vital Signs: 10/18/23 09:41 10/18/23 09:56 10/18/23 11:23 Temperature 97.5 F L Temperature Source Temporal Pulse Rate 81 78 Pulse Rate [Lying] 75 Pulse Rate [Sitting (for 1 minute prior to obtaining)] 80 Respiratory Rate 16 20 H Blood Pressure 127/105 H 130/68 H Blood Pressure [Lying] 138/63 H Blood Pressure [Sitting (for 1 minute prior to obtaining)] 143/68 H Blood Pressure [Standing (for 1 minute prior to obtaining)] 134/117 H Blood Pressure Mean 112 88 Blood Pressure Mean [Lying] 88 Blood Pressure Mean [Sitting (for 1 minute prior to obtaining)] 93 Blood Pressure Mean [Standing (for 1 minute prior to obtaining)] 122 Pulse Ox 100 96 Oxygen Delivery Method Room Air Room Air 10/18/23 11:28 10/18/23 14:18 Temperature Temperature Source Pulse Rate 80 77 Pulse Rate [Lying] Pulse Rate [Sitting (for 1 minute prior to obtaining)] Respiratory Rate 20 H Blood Pressure 143/68 H 129/82 H Blood Pressure [Lying] Blood Pressure [Sitting (for 1 minute prior to obtaining)] Blood Pressure [Standing (for 1 minute prior to obtaining)] Blood Pressure Mean 93 97 Blood Pressure Mean [Lying] Blood Pressure Mean [Sitting (for 1 minute prior to obtaining)] Blood Pressure Mean [Standing (for 1 minute prior to obtaining)] Pulse Ox 95 Oxygen Delivery Method Room Air Positive well nourished and well developed General Appearance ED: well developed and NAD HEENT Reports moist mucous membranes Negative for trauma or tenderness Eyes PERRL and EOMs intact bilaterally Neck supple and no JVD Chest Wall palpation of chest normal Resp normal respiratory effort and clear to auscultation bilaterally Cardio regular rate and regular rhythm GI non-tender and non-distended Palpation: soft Neuro oriented x3 and CN's II-XII intact bilaterally Neuro Narrative: There is mild decrease sensation to light touch in the right upper and right lower extremities. Sensorium / Orientation: alert Motor Exam: strength 5/5 throughout Psych mental status grossly normal Skin Skin Narrative: There are healing abrasions and contusions over the upper extremities bilaterally. There is no bony crepitance or step-off. There is no deformity noted. MDM MDM MDM Narrative Medical decision making narrative: Differential diagnosis includes hypoglycemia, TIA, intracranial bleeding, electrolyte abnormality, cardiac dysrhythmia, cardiac ischemia, infection, and worsening brain metastasis. CT scan of the brain will be obtained to assess for intracranial bleeding and assessment of brain metastasis. Chest x-ray will be obtained to assess for pneumonia and pneumothorax. EKG will be obtained to assess for cardiac dysrhythmia and cardiac ischemia. CBC will be obtained to assess for leukocytosis and anemia. Basic metabolic profile will be obtained to assess for electrolyte abnormality and renal function. Urinalysis will be obtained to assess for urinary tract infection. Lab Data Lab results narrative: CBC was reviewed. There is a mild anemia with a hemoglobin of 11.5 and hematocrit 35.3. Platelets were slightly low at 148. Basic metabolic profile was reviewed and was essentially within normal limits. High-sensitivity troponin was reviewed and was normal at 10. Urinalysis was reviewed. There is no evidence of urinary tract infection or hematuria. Labs: Laboratory Results - last 24 hr 10/18/23 10/18/23 10/18/23 09:54 10:30 10:56 WBC 7.7 RBC 4.31 L Hgb 11.5 L Hct 35.3 L MCV 81.9 MCH 26.7 L MCHC 32.6 RDW Std Deviation 49.2 H RDW Coeff of Kailey 16.5 H Plt Count 148 L MPV 9.4 Immature Gran % (Auto) 1.800 H Neut % (Auto) 82.0 H Lymph % (Auto) 7.4 L Jennings % (Auto) 7.8 Eos % (Auto) 0.6 Baso % (Auto) 0.4 Absolute Neuts (auto) 6.3 Absolute Lymphs (auto) 0.57 L Nucleated RBC % 0 PT 13.3 INR 1.0 APTT 32.6 Sodium 141 Potassium 3.5 Chloride 113 H Carbon Dioxide 24.0 Anion Gap 4 L BUN 18 Creatinine 0.84 Est GFR (MDRD) Af Amer 115 Est GFR (MDRD) Non-Af 95 BUN/Creatinine Ratio 21.3 H Glucose 138 H Calcium 9.2 Troponin I High Sens 10 Urine Color Yellow Urine Clarity Clear Urine pH 6.5 Ur Specific [place] 1.015 Urine Protein 15 H Urine Glucose (UA) Normal Urine Ketones Negative Urine Occult Blood Negative Urine Nitrite Negative Urine Bilirubin Negative Urine Urobilinogen Normal Ur Leukocyte Esterase 25 H Urine RBC 0 SEEN Urine WBC 0-5 SEEN Ur Squamous Epith Cells 0 SEEN Urine Bacteria 0 SEEN Urine Mucus 0 SEEN POC Glucose 122 H Radiography Chest X-Ray - ED: 2 View, Read by ED Physician, Read by Radiologist and No Acute Disease Diagnostic Testing: Clinical Impression(s) from Imaging Studies Brain CT 10/18/23 10:32 IMPRESSION: Essentially no interval change in the appearance of the known vasogenic edema throughout the left parietal and occipital lobes with hypoattenuation and localized mass effect. There is no midline shift, but there is a new hyperdense 7 mm focus within the area of edema suggesting a either a new metastasis or progression of known neoplasm. No acute hemorrhage, there is stable mass effect from the vasogenic edema but no midline shift. No suspicious scalp lesion Electronically Signed: Ilan Iraheta MD at 11:30 EST , Chest X-Ray 10/18/23 10:32 IMPRESSION: No acute pulmonary process, no interval change Electronically Signed: Ilan Iraheta MD at 11:17 EST , PA and lateral chest x-ray was obtained. There are 2 views. On my independent interpretation, lung post are clear. There is normal cardiac silhouette. Bony thorax is normal. There is no acute process noted. Radiologist also interpreted the x-ray and agrees. CT scan of the brain was obtained. There is a new hyperdense 7 mm focus in the area of edema suggesting either a new metastasis or progression of prior metastasis. There is no increase in vasogenic edema. There is no mass effect. There is no midline shift. There is no acute hemorrhage noted. This was interpreted by the radiologist and was independently reviewed by myself. EKG Initial EKG: Attestation: I personally reviewed and interpreted this EKG as follows: Interpretation: Sinus Rhythm (72) and No Acute Injury Pattern Comments: EKG was obtained. On my independent interpretation, it showed a normal sinus rhythm with a rate of 72. NE interval, QRS interval, and QTc intervals were all normal. [place] was normal. There are no acute ST or T wave changes. Prior EKG tracings: available for review Prior: Unchanged (05/02/2023) Treatment and Re-Evaluation :: Orthostatic vital signs were performed and were within normal limits. Patient was able to ambulate well here in the emergency department. Patient is feeling better. Patient states he is asymptomatic at the present time. Patient wants to go home. Patient was instructed to follow-up with his primary care physician in 5 to 7 days. Patient understood and was agreeable with the plan. All questions were answered. Discharge Plan Triage Chief Complaint: Neuro S/Sx ED Provider: Khalif Horan Dx/Rx/DC Orders Clinical Impression: Brain metastasis, Episode of confusion Instructions: ED Confusion Prescriptions: No Action carvedilol 25 mg tablet 25 mg PO BID Rx Instructions: must administer with a meal/food albuterol sulfate 90 mcg/actuation HFA aerosol inhaler 1 puff inhalation Q6H PRN (Reason: SOB) lidocaine-prilocaine 2.5-2.5 % cream 1 applic topical ONCE PRN (Reason: Port access ) 30 Days Qty: 30 2RF amlodipine 10 mg tablet 10 mg PO DAILY Qty: 90 3RF rosuvastatin [Crestor] 40 MG tablet 40 mg PO DAILY dexamethasone 4 mg tablet 2 mg PO DAILY Hold Instructions: Resume on 05/19/23. Patient Comments: TAKE 1 TABLET BY MOUTH TWICE A DAY Rx Instructions: states tapered down from the 4mg dose. pantoprazole [Protonix] 40 mg tablet,delayed release (DR/EC) 40 mg PO BID Qty: 60 0RF hydralazine 50 mg tablet 50 mg PO BID Eliquis 5 mg tablet 2.5 mg PO BID Qty: 60 12RF ipratropium-albuterol 0.5 mg-3 mg(2.5 mg base)/3 mL solution for nebulization 3 ml inhalation Q4H PRN (Reason: shortness of breath or wheezing) Qty: 180 3RF guaifenesin 1,200 mg tablet extended release 12hr 1,200 mg PO Q12H Qty: 60 6RF Primary Care Provider: Jacob Jennings Referrals: Jacob Jennings DO [Primary Care Provider] - 3-5 Days Disposition Disposition: Home, Self Care
--- NOTE | 2023-10-18 10:32 | EKG12_ITS ---
Test Reason : NEURO Blood Pressure : / mmHG Vent. Rate : 072 BPM Atrial Rate : 072 BPM P-R Int : 178 ms QRS Dur : 080 ms QT Int : 394 ms P-R-T Axes : 030 -02 042 degrees QTc Int : 431 ms Normal sinus rhythm Normal ECG Confirmed by HAILE BAUTISTA, VIANEY ([id number]), editor in chief newspaper [employer] ([id number]) on 10/26/2023 6:45:19 AM Referred By: Confirmed By:ZOILA BE MD
--- NOTE | 2023-10-18 10:32 | CT_ITS ---
STUDY: CT BRAIN WITHOUT CONTRAST REASON FOR EXAM: Male, 68 years old. Headache after trauma, known neoplasm RADIATION DOSAGE (If Supplied By Facility): CTDIvol = ( 44.99 ) mGy, DLP = ( 829.85 ) mGycm TECHNIQUE: Transaxial CT imaging of the brain was performed without administration of intravenous contrast material. Individualized dose optimization techniques were used for this CT. COMPARISON: 03/19/2023 FINDINGS: Stable extensive vasogenic edema again noted in the left parietal and occipital lobes on today''s examination, there is a new hyperdense focus within the left occipital lobe measuring 0.7 cm suggesting there may be a new or enlarging lesion present. On the [facility] chloe this was flagged as a possible acute hemorrhage. This is not a hyperdense hemorrhage but instead is a part of the patient''s known neoplasm/metastasis in this area. Normal soft tissue structures. Normal calvarium. Normal size ventricles and extra-axial spaces for the patient''s age. There are areas of decreased attenuation within the white matter tracts of the supratentorial brain, consistent with microvascular disease changes. Normal basal ganglia and thalami. Normal brainstem. Normal cerebellum. There is no intracranial hemorrhage. There are no findings of an acute ischemic infarction. Normal visualized paranasal sinuses. CT/Brain/Head without Contrast IMPRESSION: Essentially no interval change in the appearance of the known vasogenic edema throughout the left parietal and occipital lobes with hypoattenuation and localized mass effect. There is no midline shift, but there is a new hyperdense 7 mm focus within the area of edema suggesting a either a new metastasis or progression of known neoplasm. No acute hemorrhage, there is stable mass effect from the vasogenic edema but no midline shift. No suspicious scalp lesion Electronically Signed: Ilan Iraheta MD at 11:30 EST ,
--- NOTE | 2023-10-18 10:32 | RAD_ITS ---
STUDY: X-RAY CHEST REASON FOR EXAM: Male, 68 years old. Weakness TECHNIQUE: PA and lateral views of the chest. COMPARISON: 05/04/2023 FINDINGS: EKG leads overlie the chest. Satisfactory appearance of a right subclavian port The lungs are clear and expanded, stable scarring in both lower lung post.. There is no demonstrated pleural abnormality. Normal size heart. Normal mediastinum and emelia. Normal visualized pulmonary arteries. Normal visualized aortic arch and descending thoracic aorta. Normal visualized thoracic spine. Normal visualized ribs, clavicles, and shoulders. There is no demonstrated abnormality of the visualized soft tissue structures of the upper abdomen. RAD/Chest PA and Lateral IMPRESSION: No acute pulmonary process, no interval change Electronically Signed: Ilan Iraheta MD at 11:17 EST ,
[2023-10-18 11:00] LABS: Bacteria 0 SEEN /hpf (None Seen); Mucous, Urine 0 SEEN /hpf (<or=2+); Red Blood Cells-Urine 0 SEEN /hpf (0-5)
[2023-10-18 11:01] LABS: Absolute Lymphocyte Count 0.57 X10^3/uL (0.83-4.51); Absolute Neutrophil Count 6.3 X10^3/uL (2.0-7.7); Basophil# 0.03 X10^3/uL; Basophil% 0.4 % (0-1); Eosinophil# 0.05 X10^3/uL; Eosinophils% 0.6 % (0-5); Hematocrit 35.3 % (40-54); Hemoglobin 11.5 g/dL (13.0-16.5); Lymphocyte # 0.57 X10^3/ul (0.83-4.51); Lymphocyte % 7.4 % (19-41); Mean Corp Hgb Conc 32.6 g/dL (32-36); Mean Corpuscular Hgb 26.7 pg (27.0-32.0); Mean Corpuscular Volume 81.9 fL (80-94); Mean Platelet Vol. 9.4 fl (6.2-12.0); Monocyte% 7.8 % (0-10); NRBC Flagged by Analyzer 0 % (0-5); Neutrophil # 6.32 X10^3/uL (2.7-7.7); POSITIVE DIFFERENTIAL YES; Platelet Count 148 K/mm3 (150-450); RBC Distribution Width CV 16.5 % (11.6-14.6); RBC Distribution Width SD 49.2 fl (35.1-43.9); Red Blood Count 4.31 M/mm3 (4.6-6.2); White Blood Count 7.7 K/mm3 (4.4-11.0)
[2023-10-18 11:02] LABS: Differential Indicated SCAN CRITERIA MET
[2023-10-18 11:06] LABS: Color, Urine Yellow (Yellow); Glucose, Dipstick Normal (Normal); Ketone-Dipstick Negative (Negative); Leukocyte Esterase-Dipstick 25 /ul (Negative); Nitrite-Dipstick Negative (Negative); Occult Blood-Urine Negative /ul (Negative); Protein-Dipstick 15 mg/dl (Negative); Specific Gravity, Urine 1.015 (1.002-1.030); Urine Bilirubin Dipstick Negative (Negative); Urine Clarity Clear (Clear); Urine Urobilinogen Normal (Normal); Urine pH 6.5 (5.0 - 8.0)
[2023-10-18 11:10] LABS: Prothrombin Time (Protime)PT. 13.3 SECONDS (11.7-14.9)
[2023-10-18 11:11] LABS: Partial Thromboplast Time 32.6 Seconds (24.1-36.2)
[2023-10-18 11:17] LABS: Squamous Epithelial Cells - UA 0 SEEN /hpf (0-5); White Blood Cells 0-5 SEEN /hpf (0-5)
[2023-10-18 11:18] LABS: Anion Gap 4 (5-15); BUN 18 mg/dL (7-18); BUN/Creat Ratio 21.3 RATIO (10-20); Calcium,Total 9.2 mg/dL (8.5-10.1); Chloride 113 mmol/L (98-107); Creatinine, Serum 0.84 mg/dL (0.70-1.30); EST Glomerular Filtration Rate 95 mL/min (>60); Est Glom Filt Rate - Afr Amer 115 mL/min (>60); Glucose 138 mg/dL (74-106); Potassium 3.5 mmol/L (3.5-5.1); Sodium Level 141 mmol/L (136-145); Troponin-I HS 10 pg/mL (3.0-78.0)
[2023-10-18 11:23] VITALS: BP 134/117; BP 138/63; BP 143/68; PULSE 75; PULSE 80
[2023-10-18 11:28] VITALS: BP 143/68; PULSE 80
[2023-10-18 14:18] VITALS: BP 129/82; PULSE 77; RESP 20; O2SAT 95
[2023-10-18] MEDS: 0.9 % NaCl (Sterile) Posiflush 10 mL IV (14:47)
[2023-10-18 14:50] VITALS: BP 164/76; PULSE 88
== END 2023-10-18 14:55 | disposition home or self-care (01) ==
PROVIDERS: Emergency Provider Emergency Medicine; PCP Family Medicine; Visit Provider Emergency Medicine
DX: C79.31 Secondary malignant neoplasm of brain (principal); J44.9 Chronic obstructive pulmonary disease, unspecified; E11.9 Type 2 diabetes mellitus without complications; R41.0 Disorientation, unspecified; I25.10 Atherosclerotic heart disease of native coronary artery without angina pectoris; Z87.891 Personal history of nicotine dependence; Z79.01 Long term (current) use of anticoagulants; Z86.16 Personal history of COVID-19; Z86.711 Personal history of pulmonary embolism; Z95.5 Presence of coronary angioplasty implant and graft
CPT/HCPCS: 36591; 70450; 71046; 80048; 81001; 82962; 84484; 85025; 85610; 85730; 93005; 99284; A4216

== ENCOUNTER → 2024-01-06 | Outpatient (CLI) | payer MEDICARE, OTHER, SELFPAY ==
--- OUTSIDE RECORDS SUMMARY | 2024-01-06 07:15 | XMS RPT_ITS | CCD ---
Author Name Unknown Address [address] [place] [address] Organization [facility] Care Team Providers Care Sheet Mill Supervisor Name Role Phone Dick Jacob Robin Primary Care Provider DICK TAYLOR, DR MARES Primary Care Physician KINSEY HORTON MD Attending Unavailable DICK TAYLOR, DR. MARES Primary Care Unavaila JEANCARLOS Loja Referring Unavailable DICK JACOB Robin Primary Care Unavailable Dick TAYLOR, Jacob Primary Care Provider Dick Jacob Robin Primary Care Provider Dick DO, Jacob Robin Primary Care Provider PROVIDER, UNKNOWN Referring Unavailable DICK JACOB Robin Primary Care Unavailable PROVIDER, UNKNOWN Referring Unavailable PIPERA, JACOB F Primary Care Unavailable PETRIHARISHA, JACOB F Primary Care Unavailable PROVIDER, UNKNOWN Referring Unavailable Ppiergeremias , Jacob Primary Care Provider PINEDA LITTLE Attending Unavailable DICK, JACOB Primary Care Unavailable JACOB JENNINGS Attending Unavailable DICK, JACOB Primary Care Unavailable JACOB JENNINGS Attending Unavailable PIPERA, JACOB Primary Care Unavailable EM PAZ Attending Unavailable DICK, JACOB Primary Care Unavailable FRANCOIS LINDSAY Attending Unavailable LAURIE WESTFALL Referring Unavailable PIPERA, JACOB Primary Care Unavailable FRANCOIS LINDSAY Attending Unavailable JEANCARLOS TAO Referring Unavailable PIPERA, JACOB Primary Care Unavailable FRANCOIS LINDSAY Attending Unavailable PIPERA, JACOB Primary Care Unavailable PIPERA, JACOB F Referring Unavailable PIPERA, JACOB Primary Care Unavailable FRANCOIS LINDSAY Attending Unavailable JACOB JENNINGS Referring Unavailable JACOB JENNINGS Primary Care Unavailable FRANCOIS LINDSAY Attending Unavailable LAURIE WESTFALL Referring Unavailable JACOB JENNINGS Primary Care Unavailable FRANCOIS LINDSAY Attending Unavailable JACOB JENNINGS Primary Care Unavailable JACOB JENNINGS Referring Unavailable Medications Current Medications Medication Drug Class(es) Dates Sig (Normalized) Sig (Original) Acetaminophen (4 sources) Start: 05-16-2021 acetaminophen (TYLENOL) tablet 650 mg Completed/Discontinued Medications Medication Drug Class(es) Dates Sig (Normalized) Sig (Original) ALPRAZolam 0.25 mg disintegrating oral tablet (1 source) Benzodiazepine Start: 03-12-2021 End: 03-12-2021 ALPRAZolam (NIRAVAM) dissolvable tablet 0.25 mg bifidobacterium infantis 10.5 mg chewable tablet (1 source) Start: 12-09-2021 take 1 tablet by mouth once daily Bifidobacterium infantis (ALIGN) 10.5 mg (10 million cell) chew Take 1 tablet by mouth once daily. 30 tablet 3 12/09/2021 Active Problems Active Problems Problem Classification Problem Date Documented Da te Episodic/Chronic Blindness and vision defects (1 source) Visual impairment; 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: [Unspecified visual loss] Chronic Cancer of bronchus; lung (20 sources) Carcinoma of lung; 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: [Malignant neoplasm of unspecified part of left bronchus or lung] Onset: 02-07-2021 Chronic Cancer of kidney and renal pelvis (1 source) Malignant tumor of kidney; 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: [Malignant neoplasm of left kidney, except renal pelvis] Chronic Chronic obstructive pulmonary disease and bronchiectasis (20 sources) Chronic obstructive lung disease; 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: [Chronic obstructive pulmonary disease, unspecified] Onset: 05-15-2021 05-27-2015 Chronic Congestive heart failure; nonhypertensive (1 source) Congestive heart failure 10-22-2022 Chronic Coronary atherosclerosis and other heart disease (20 sources) Coronary arteriosclerosis; 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: [Atherosclerotic heart disease of [place] coronary artery without angina pectoris] Onset: 07-10-2003 05-27-2015 Chronic Deficiency and other anemia (1 source) Iron deficiency anemia due to blood loss 10-17-2022 Chronic Deficiency and other anemia (1 source) Anemia 10-17-2022 Episodic Disorders of lipid metabolism (20 sources) Hypercholesterolemia ; 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: [Pure hypercholesterolemia , unspecified] Onset: 05-15-2021 05-27-2015 Chronic Epilepsy; convulsions (5 sources) Seizure; 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: [Unspecified convulsions] Episodic Esophageal disorders (2 sources) Gastric reflux; 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: [Gastroesophageal reflux disease] 10-17-2022 Chronic Essential hypertension (20 sources) Essential hypertension; 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: [Essential (primary) hypertension] Onset: 11-09-1993 03-29-2018 Chronic Headache; including migraine (1 source) Frequent headache 10-17-2022 Episodic Heart valve disorders (11 sources) Aortic incompetence, non-rheumatic ; 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: [Nonrheumatic aortic (valve) stenosis] Onset: 06-30-2022 10-17-2022 Chronic Maintenance chemotherapy; radiotherapy (1 source) Radiotherapy procedure with explicit context; 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: [Encounter for antineoplastic radiation therapy] Chronic Malignant neoplasm without specification of site (1 source) Malignant adenomatous neoplasm 10-17-2022 Chronic Past or Other Problems Problem Classification Problem Date Documented Date Episodic/Chronic Abdominal hernia (18 sources) Right inguinal hernia ; 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: [Unilateral inguinal hernia, without obstruction or gangrene, not specified as recurrent] Onset: 11-26-2015 12-02-2015 Episodic Cancer of kidney and renal pelvis (20 sources) History of malignant neoplasm of kidney; 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: [Personal history of other malignant neoplasm of kidney] Onset: 07-10-2006 05-27-2015 Episodic Cancer; other and unspecified primary (19 sources) 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; 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: [Personal history of malignant neoplasm of other organs and systems] Onset: 05-29-2023 06-06-2023 Episodic Cancer; other and unspecified primary (2 sources) Personal history of malignant neoplasm of other organs and systems; 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: [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] Onset: 05-29-2023 Episodic Other aftercare (12 sources) Patient encounter status; 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: [alf (current) use of non-steroidal anti-inflammatories (NSAID)] Onset: 12-04-2017 12-04-2017 Episodic Other and unspecified benign neoplasm (18 sources) History of polyp of colon; 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: [Personal history of colonic polyps] Onset: 05-27-2015 05-27-2015 Episodic Other and unspecified benign neoplasm (8 sources) Gastric polyp; 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: [Polyp of stomach and duodenum] Onset: 04-02-2022 08-23-2022 Episodic Other circulatory disease (19 sources) Carotid bruit; 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: [Other specified symptoms and signs involving the circulatory and respiratory systems] Onset: 11-09-2014 12-04-2017 Episodic Other circulatory disease (2 sources) Other specified symptoms and signs involving the circulatory and respiratory systems; 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: [Other specified symptoms and signs involving the circulatory and respiratory systems] Onset: 12-31-2022 Episodic Other lower respiratory disease (15 sources) Lung mass; 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: [Other nonspecific abnormal finding of lung field] Onset: 01-07-2021 02-20-2021 Episodic Other nervous system disorders (12 sources) Ataxia; 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: [Ataxia, unspecified] Onset: 05-15-2021 Episodic Other non-epithelial cancer of skin (19 sources) History of squamous cell carcinoma of skin; 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: [Personal history of other malignant neoplasm of skin] Onset: 05-27-2015 05-27-2015 Episodic Other skin disorders (2 sources) Disorder of the skin and subcutaneous tissue, unspecified; 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: [Disorder of the skin and subcutaneous tissue, unspecified] Onset: 12-31-2022 Episodic Residual codes; unclassified (18 sources) FH: Diabetes mellitus; 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: [Family history of diabetes mellitus] Onset: 05-27-2015 05-27-2015 Episodic Unclassified (1 source) Long-term current use of drug therapy; 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: [alf (current) use of other immunomodulators and 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] Viral infection (8 sources) Disease caused by 2019-nCoV; 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: [COVID-19] Onset: 12-02-2021 08-23-2022 Episodic Results Test Name Value Interpretation Reference Range Facil ity Vital Signs Date Time Vital Sign Value Performing Clinician Facility 11-24-2023 15:15-0500 Body height 165.1 cm Em Paz PA-C Work Phone: [employer] ([place] 11-24-2023 15:15-0500 Body mass index (BMI) [Ratio] 35.11 kg/m2 Em Paz PA-C Work Phone: [employer] ([place] 11-24-2023 15:15-0500 Body temperature 98.71 [degF] Em Paz PA-C Work Phone: [facility] 11-24-2023 15:15-0500 Body weight 95.71 kg Em Hewitto PA-C Work Phone: [facility] 11-24-2023 15:15-0500 Diastolic blood pressure 64 mm[Hg] Em Hewitto PA-C Work Phone: [facility] 11-24-2023 15:15-0500 Heart rate 88 /min Em Hewitto PA-C Work Phone: [facility] 11-24-2023 15:15-0500 SaO2% (BldA) [Mass fraction] 95 % Em Hewitto PA-C Work Phone: [facility] 11-24-2023 15:15-0500 Systolic blood pressure 138 mm[Hg] Em Hewitto PA-C Work Phone: [facility] 08-07-2023 10:14-0400 Body height 165.1 cm Francois Lindsay MD Work Phone: [facility] 08-07-2023 10:14-0400 Body weight 92.3 kg Francois Lindsay MD Work Phone: [facility] 08-07-2023 10:14-0400 Diastolic blood pressure 74 mm[Hg] Francois Lindsay MD Work Phone: [facility] 08-07-2023 10:14-0400 Heart rate 86 /min Francois Lindsay MD Work Phone: [facility] 08-07-2023 10:14-0400 Respiratory rate 20 /min Francois Lindsay MD Work Phone: [facility] 08-07-2023 10:14-0400 SaO2% (BldA) [Mass fraction] 97 % Francois Lindsay MD Work Phone: [facility] 08-07-2023 10:14-0400 Systolic blood pressure 148 mm[Hg] Francois Lindsay MD Work Phone: [facility] 06-09-2023 11:35-0400 Body height 165.1 cm Francois Lindsay MD Work Phone: [facility] 06-09-2023 11:35-0400 Body weight 84.1 kg Francois Lindsay MD Work Phone: [facility] 06-09-2023 11:35-0400 Diastolic blood pressure 64 mm[Hg] Francois Lindsay MD Work Phone: [facility] 06-09-2023 11:35-0400 Heart rate 85 /min Francois Lindsay MD Work Phone: [facility] 06-09-2023 11:35-0400 SaO2% (BldA) [Mass fraction] 94 % Francois Lindsay MD Work Phone: [facility] 06-09-2023 11:35-0400 Systolic blood pressure 132 mm[Hg] Francois Lindsay MD Work Phone: [facility] 05-20-2023 14:02-0400 Body height 165.1 cm Pineda Little MD Work Phone: [facility] 05-20-2023 14:02-0400 Body mass index (BMI) [Ratio] 30.79 kg/m2 Pineda Little MD Work Phone: [facility] 05-20-2023 14:02-0400 Body temperature 98.29 [degF] Pineda Little MD Work Phone: [facility] 05-20-2023 14:02-0400 Body weight 83.92 kg Pineda Little MD Work Phone: [facility] 05-20-2023 14:02-0400 Diastolic blood pressure 60 mm[Hg] Pineda Little MD Work Phone: [facility] 05-20-2023 14:02-0400 Heart rate 87 /min Pineda Little MD Work Phone: [employer] ([place] 05-20-2023 14:02-0400 Systolic blood pressure 119 mm[Hg] Pineda Little MD Work Phone: [email or web address] [facility] 05-17-2021 15:29-0400 Body temperature 96.91 [degF] Tono Birch MD Work Phone: [facility] Work Phone: 05-17-2021 15:29-0400 Diastolic blood pressure 88 mm[Hg] Tono Birch MD Work Phone: [employer] Work Phone: 05-17-2021 15:29-0400 Heart rate 71 /min Tono Birch MD Work Phone: [facility] Work Phone: 05-17-2021 15:29-0400 Respiratory rate 18 /min Tono Birch MD Work Phone: [facility] Work Phone: 05-17-2021 15:29-0400 SaO2% (BldA) [Mass fraction] 98 % Tono Birch MD Work Phone: [employer] Work Phone: 05-17-2021 15:29-0400 Systolic blood pressure 168 mm[Hg] Tono Birch MD Work Phone: [facility] Work Phone: 05-15-2021 09:34-0400 Body mass index (BMI) [Ratio] 32.61 kg/m2 Tono Birch MD Work Phone: [employer] Work Phone: 05-15-2021 09:34-0400 Body weight 86.18 kg Tono Birch MD Work Phone: [facility] Work Phone: 03-15-2021 12:00-0400 Heart rate 94 /min Anaid Zee MD Work Phone: [facility] Work Phone: 03-15-2021 12:00-0400 Respiratory rate 16 /min Anaid Zee MD Work Phone: [facility] Work Phone: 03-15-2021 12:00-0400 SaO2% (BldA) [Mass fraction] 94 % Anaid Zee MD Work Phone: [facility] Work Phone: 03-15-2021 11:00-0400 Diastolic blood pressure 63 mm[Hg] Anaid Zee MD Work Phone: [facility] Work Phone: 03-15-2021 11:00-0400 Systolic blood pressure 124 mm[Hg] Anaid Zee MD Work Phone: [facility] Work Phone: 03-15-2021 08:00-0400 Body temperature 97.39 [degF] Anaid Zee MD Work Phone: [facility] Work Phone: 03-15-2021 06:00-0400 Body mass index (BMI) [Ratio] 31.07 kg/m2 Anaid Zee MD Work Phone: [facility] Work Phone: 03-15-2021 06:00-0400 Body weight 82.1 kg Anaid Zee MD Work Phone: [facility] Work Phone: 03-12-2021 10:21-0400 Body height 162.6 cm Anaid Zee MD Work Phone: [facility] Work Phone: 02-20-2021 14:30-0400 BP Diastolic 70 mm[Hg] Jose Miguel Foster [facility] Work Phone: 02-20-2021 14:30-0400 BP Systolic 124 mm[Hg] Jose Miguel Foster [facility] Work Phone: 02-20-2021 14:30-0400 Pulse (Heart Rate) 70 /min Jose Miguel PALACI[facility] Work Phone: 02-20-2021 14:30-0400 Pulse Oximetry 94 % Jose Miguel PALACIOS Work Phone: 02-20-2021 14:30-0400 Respiratory Rate 16 /min Jose Miguel PALACIOS Work Phone: 02-20-2021 13:00-0400 Body Temperature 97 [degF] Jose Miguel PALACIOS Work Phone: 02-20-2021 09:43-0400 BMI (Body Mass Index) 32.27 kg/m2 Jose Miguel PAL[facility]IOS Work Phone: 02-20-2021 09:43-0400 Body weight 85.28 kg Jose Miguel PAL[facility] Work Phone: 02-20-2021 09:43-0400 Height 162.6 cm Jose Miguel PALACIOS Work Phone: Encounters Encounter Date Encounter Type Care Provider Facility Start: 11-24-2023 End: 11-24-2023 Office outpatient visit 15 minutes Em Paz PA-C Work Phone: [facility] Procedures Date Procedure Procedure Detail Performing Clinician Start: 06-06-2023 Mri brain brain stem w/o w/contrast material Laurie Westfall EVENT MARKETING MANAGER.WHEEL PRESS OPERATOR Work Phone: Start: 01-06-2022 Lipid 1996 panel - S jeremiah or Plasma Pineda Little MD Work Phone: Start: 08-01-2021 Mri brain brain stem w/o w/contrast material Marcie Shay EVENT MARKETING MANAGER - WHEEL PRESS OPERATOR Work Phone: Start: 05-17-2021 Ecg routine ecg w/le ast 12 lds w/i&r Elidia Morin MD Work Phone: Start: 05-17-2021 Hemoglobin glycosylated a1c Elidia Morin MD Work Phone: Start: 05-16-2021 Speech and language therapy regime Elidia Morin MD Work Phone: Start: 05-16-2021 EEG Celsa OpalStella Lyles EVENT MARKETING MANAGER - WHEEL PRESS OPERATOR Work Phone: Start: 05-16-2021 Echo tthrc r-t 2d w/wom-mode compl spec&colr d Celsa OpalStella Lyles EVENT MARKETING MANAGER - WHEEL PRESS OPERATOR Work Phone: Start: 05-16-2021 Mri brain brain stem w/o w/contrast material Celsa OpalStella Lyles EVENT MARKETING MANAGER - WHEEL PRESS OPERATOR Work Phone: Start: 05-16-2021 Assay of magnesium Smith Morin MD Work Phone: Start: 05-16-2021 BASIC METABOLIC PANE L W/ REFLEX TO MG FOR LOW K Elidia Morin MD Work Phone: Start: 05-16-2021 Radiologic exam abdo men 1 view Elidia Morin MD Work Phone: Start: 05-16-2021 Hemoglobin glycosylated a1c Celsa OpalStella Lyles EVENT MARKETING MANAGER - WHEEL PRESS OPERATOR Work Phone: Start: 05-16-2021 Lipid panel Celsa Lyles EVENT MARKETING MANAGER - WHEEL PRESS OPERATOR Work Phone: Start: 05-15-2021 Blood count complete automated Tono Birch MD Work Phone: Start: 05-15-2021 Speech and language therapy regime Celsa Lyles EVENT MARKETING MANAGER - WHEEL PRESS OPERATOR Work Phone: Start: 05-15-2021 Ct head/brain w/o co ntrast material Mauri Hernandez DO Work Phone: Start: 05-15-2021 Ecg routine ecg w/le ast 12 lds w/i&r Tono Birch MD Work Phone: Start: 05-15-2021 Gluc bld gluc mntr d ev cleared fda spec home use Tee Esposito MD Work Phone: Start: 05-15-2021 ADD ON LAB TEST Elidia Morin MD Work Phone: Start: 05-15-2021 Urnls dip stick/tabl et rgnt auto w/o microscopy Tono Birch MD Work Phone: Start: 05-15-2021 Radiologic exam ches t single view Tono Birch MD Work Phone: Start: 05-15-2021 Cerebral perfusion a nalys ct w/blood flow&volume Tono Birch MD Work Phone: Start: 05-15-2021 Assay of ethanol Unknow n Provider Result Start: 05-15-2021 End: 05-15-2021 Gonadotropin chorionic qualitative Tono Birch MD Work Phone: Start: 05-15-2021 End: 05-15-2021 Ct angiography head w/contrast/noncontrast Tono Birch MD Work Phone: Start: 05-15-2021 PROTIME/INR & PTT Unkno wn Provider Result Start: 05-15-2021 Ecg routine ecg w/le ast 12 lds w/i&r Tono Birch MD Work Phone: Start: 05-15-2021 POC BMP, WHOLE BLOOD Un known Provider Result Start: 03-15-2021 HOME O2 EVAL (DESATU RATION SCREEN) Evelio Hernandez MD Work Phone: Start: 03-15-2021 Radiologic exam ches t single view Evelio Hernandez MD Work Phone: Start: 03-15-2021 Basic metabolic pane l calcium total Evelio Hernandez MD Work Phone: Start: 03-15-2021 Radiologic exam ches t single view Merlene Matthew EVENT MARKETING MANAGER - WHEEL PRESS OPERATOR Work Phone: Start: 03-14-2021 Radiologic exam ches t single view Merlene Matthew EVENT MARKETING MANAGER - WHEEL PRESS OPERATOR Work Phone: Start: 03-13-2021 Radiologic exam ches t single view Merlene Matthew EVENT MARKETING MANAGER - WHEEL PRESS OPERATOR Work Phone: Start: 03-13-2021 Blood count complete automated Merlene Castro APRN - WHEEL PRESS OPERATOR Work Phone: Start: 03-12-2021 Radiologic exam ches t single view Merlene Montiel WHEEL PRESS OPERATOR Work Phone: Start: 03-12-2021 OPERATIVE REPORT 3m Sca nning Start: 03-12-2021 Radiologic exam ches t single view Zac Shah EVENT MARKETING MANAGER [facility] Work Phone: Start: 03-12-2021 Antibody screen Anaid nicholson MD Work Phone: Start: 03-12-2021 Blood typing serologic abo Dawit Valiente DO Work Phone: Start: 03-12-2021 Comprehensive metabo lic panel Dawit Valiente DO Work Phone: Start: 03-12-2021 Ecg routine ecg w/le ast 12 lds w/i&r Zac Shah EVENT MARKETING MANAGER [facility] Work Phone: Start: 02-20-2021 OPERATIVE REPORT 3m Sca nning Start: 02-20-2021 Radiologic exam ches t single view Jose Miguel Foster Work Phone: Start: 02-14-[address] atten uation skull base mid-thigh Rami Kristin Work Phone: Start: 01-28-2021 CT LUNG SCREENING Yahir Brayharishgeremias Work Phone: Start: 01-25-2021 Non-invasive physiol ogic study extremity 3 levls Jacob Jennings Work Phone: Start: 07-13-2020 Duplex scan extracra nial art compl bi study Jcaob Jennings Work Phone: Start: 07-15-2019 N-invas physiologic std lxtr art compl bi Jacob Jennings Work Phone: Start: 02-21-2019 Colonoscopy Francois herrera MD Work Phone: Start: 01-05-[address] CHACHO HORTON MD Start: 01-04-2004 Lipid 1996 panel - S jeremiah or Plasma Francois Lindsay MD Work Phone: Start: 07-17-2003 Placement of stent DALLIN HORTON MD Plan of Treatment Date Care Activity Detail Author Start: 02-21-2029 Colon cancer screen colonoscopy Colon cancer screen colonoscopy [place] Start: 02-21-2029 Screening for malignant neoplasm of colon Colon cancer screen colonoscopy [place], [place] Start: 01-06-2027 Lipid 1996 panel - Serum or Plasma Lipid Screening [facility] Start: 01-06-2027 Lipid panel Lipid Screening [facility] Start: 01-06-2025 Diabetes Screening Diabetes Screening [facility] Start: 06-13-2024 Lipid screen Lipid screen [place], [place] Start: 02-22-2024 Colonoscopy COLONOSCOPY [facility] Start: 02-22-2024 COLORECTAL CANCER SCREENING COLORECTAL CANCER SCREENING [facility] Start: 02-22-2024 Screening for malignant neoplasm of colon [facility] Start: 01-07-2024 End: 01-07-2024 Patient encounter procedure 01/07/2024 2:00 PM EST Office Visit [facility] [address] [place] [address] Jacob Jennings DO [address] [place] [address] [facility] Start: 07-10-2023 Covid-19 Vaccine ( season) Covid-19 Vaccine ( season) [facility] Start: 07-10-2023 COVID-19 Vaccine ( season) COVID-19 Vaccine () [facility] Start: 07-10-2023 Influenza vaccination [facility] Start: 07-01-2023 End: 07-01-2023 Patient encounter procedure 07/01/2023 10:00 AM EDT Office Visit [facility] [address] [place] [address] Jacob Jennings DO [address] [place] [address] [facility] Start: 04-04-2023 Screening for malignant neoplasm of colon [facility] Start: 01-06-2023 Creatinine measurement Creatinine Level [facility] Start: 01-06-2023 Lipid panel Lipid Panel [facility] Start: 01-06-2023 Potassium measurement Potassium Level [facility] Start: 11-09-2022 ADVANCE DIRECTIVE DISCUSSION ADVANCE DIRECTIVE DISCUSSION [facility] Start: 11-09-2022 DEPRESSION ASSESSMENT DEPRESSION ASSESSMENT [facility] Start: 05-17-2022 Hemoglobin A1c measurement Diabetes: Hemoglobin A1C [facility] Start: 05-16-2022 Creatinine measurement Creatinine monitoring [facility] Work Phone: Start: 05-16-2022 Lipid panel Lipid screen [facility] Work Phone: Start: 05-16-2022 Potassium monitoring Potassium monitoring [facility] Work Phone: Start: 03-15-2022 Creatinine measurement Creatinine monitoring [facility] Work Phone: Start: 03-15-2022 Potassium monitoring Potassium monitoring [facility] Work Phone: Start: 02-14-2022 Screening for malignant neoplasm of lung Low dose CT lung screening [facility] Work Phone: Start: 01-28-2022 Screening for malignant neoplasm of lung Low dose CT lung screening [facility] Work Phone: Start: 01-27-2022 COVID-19 Vaccine (4 - Booster) COVID-19 Vaccine (4 - Booster) [facility] Start: 01-27-2022 COVID-19 VACCINE (4 - Moderna series) COVID-19 VACCINE (4 - Moderna series) [facility] Start: 01-06-2022 End: 01-06-2022 Patient encounter procedure 01/06/2022 Office Visit Family Medicine Jacob Jennings DO [address] [place] [address] [phone] [facility] Start: 08-14-2021 End: 08-14-2021 Patient encounter procedure 08/14/2021 Office Visit Neurology Marcie Shay, EVENT MARKETING MANAGER - WHEEL PRESS OPERATOR [address] [place] [address] [phone] [facility] Start: 07-10-2021 Influenza vaccination [facility] Work Phone: Start: 07-08-2021 End: 07-08-2021 Office Visit 07/08/2021 Office Visit Family Medicine Jacob Jennings, DO [address] [place] [address] [phone] [facility] Start: 07-02-2021 Creatinine measurement Creatinine monitoring [facility] [place] [place] Start: 07-02-2021 Lipid panel Lipid screen [facility], [place] Start: 07-02-2021 Potassium monitoring Potassium monitoring [facility], [place] Start: 06-24-2021 End: 06-24-2021 Patient encounter procedure 06/24/2021 Office Visit Neurology Em Eckert MD [address] [place] [address] [phone] [facility] Start: 05-24-2021 End: 05-24-2021 Patient encounter procedure 05/24/2021 Office Visit Family Jacob Akins, DO [address], [place] [phone] [facility] Start: 05-21-2021 Annual Wellness Visit (AWV) Annual Wellness Visit (AWV) [facility] Work Phone: Start: 03-27-2021 End: 03-27-2021 Patient encounter procedure 03/27/2021 Office Visit Cardiothoracic Surgery Zac Shah, EVENT MARKETING MANAGER - WHEEL PRESS OPERATOR [address] [place] [address] [phone] [facility] Start: 03-20-2021 End: 03-20-2021 Admission to same day surgery center 03/20/2021 Virtual Visit Cardiothoracic Surgery Anaid Zee MD [address] [place] [address] [phone] CT [facility] Start: 03-13-2021 COVID-19 Vaccine (3 - Moderna risk 3-dose series) COVID-19 Vaccine (3 - Moderna risk 3-dose series) [facility] Work Phone: Start: 03-01-2021 End: 03-01-2021 Appointment 03/01/2021 Appointment Pulmonary Function Testing Jose Miguel Foster MD [address] [place], [place] [id number] [facility] Start: 02-12-2021 COVID-19 Vaccine (2 - Moderna 2-dose series) COVID-19 Vaccine (2 - Moderna 2-dose series) [facility] Work Phone: Start: 01-28-2021 Hospital Encounter 01/28/2021 Hospital Encounter Radiology PiperJacob , DO [address] [place] [address] [phone] [facility] Start: 12-31-2020 End: 12-31-2020 Office Visit 12/31/2020 [facility] [address], [place] [id number] [facility] Start: 07-10-2020 Influenza vaccination Flu vaccine (#1) [place], [place] Start: 06-13-2020 Creatinine monitoring Creatinine monitoring [place], [place] Start: 06-13-2020 Potassium monitoring Potassium monitoring [place] Start: 12-13-2019 Pneumococcal 65+ years Vaccine (2 of 2 - PPSV23) Pneumococcal 65+ years Vaccine (2 of 2 - PPSV23) [place] Start: 07-10-2019 Influenza vaccination Flu vaccine (#1) [place] Start: 2018 Pneumococcal Vaccine: 65+ (1 - PCV) Pneumococcal Vaccine: 65+ (1 - PCV) [facility] Start: 2018 PNEUMOCOCCAL: 65+ (1 - PCV) PNEUMOCOCCAL: 65+ (1 - PCV) [facility] Start: 2013 RSV Immunization aged 60 or older (1 - 1-dose 60+ series) RSV Immunization aged 60 or older (1 - 1-dose 60+ series) [facility] Start: 2013 RSV Vaccine (1 - 1-dose 60+ series) RSV Vaccine (1 - 1-dose 60+ series) [facility] Start: 01-04-2009 Lipid 1996 panel - Serum or Plasma Lipid Screening [facility] Start: 01-04-2009 LIPID SCREEN LIPID SCREEN [facility] Start: [address] lung screening Low dose CT lung screening [place], [place] Start: 2008 Screening for malignant neoplasm of lung Low dose CT lung screening [place] Start: 01-06-2007 DIABETES SCREEN DIABETES SCREEN [facility] Start: 01-06-2007 Diabetes Screening Diabetes Screening [facility] Start: 2003 Shingles Vaccine (1 of 2) Shingles Vaccine (1 of 2) [place] Start: 2003 SHINGRIX VACCINE (1 of 2) SHINGRIX VACCINE (1 of 2) [facility] Start: 2003 Zoster Vaccines (1 of 2) Zoster Vaccines (1 of 2) [facility] Start: 1998 COLOGUARD (FIT-DNA) COLOGUARD (FIT-DNA) [facility] Start: [address] COLONOGRAPHY [facility] Start: 1998 FECAL OCCULT BLOOD FECAL OCCULT BLOOD [facility] Start: 1998 Screening for malignant neoplasm of colon [facility] Start: 1998 SIGMOIDOSCOPY SIGMOIDOSCOPY [facility] Start: 1993 Diabetes screen Diabetes screen [facility] Work Phone: Start: 1972 DTaP/Tdap/Td vaccine (1 - Tdap) DTaP/Tdap/Td vaccine (1 - Tdap) [place] Start: 1972 DTaP/Tdap/Td Vaccines (1 - Tdap) DTaP/Tdap/Td Vaccines (1 - Tdap) [facility] Start: 1972 Urine microalbumin profile [facility] Start: 1971 Hepatitis C screening Hepatitis C Screening [facility] Start: 1971 HEPATITIS C SCREENING HEPATITIS C SCREENING [facility] Start: 1968 HIV screen HIV screen [place], [place] Start: 1965 Depression Screening Depression Screening [facility] Start: 1963 Diabetic foot examination Diabetes: Foot Exam [facility] Start: 1963 Glaucoma screening Diabetes: Retinopathy Screening [facility] Start: 1963 Preventive dental service Diabetes: Dental Exam [facility] Start: 04[birth year]02-1954 Examination of skin Derm Melanoma Skin Check [facility] Start: 1953 AAA screen AAA screen [place], [place] Start: 1953 Abdominal aortic aneurysm screening [facility] Start: 1953 ABDOMINAL AORTIC ANEURYSM SCREENING ABDOMINAL AORTIC ANEURYSM SCREENING [facility] Start: 1953 Echocardiography Echocardiogram [facility] Start: 1953 Hepatitis C screen Hepatitis C screen [place], [place] Start: 1953 Hepatitis C screening Hepatitis C screen [place] Start: 1953 Medicare Annual Wellness (AWV) Medicare Annual Wellness (AWV) [facility] Start: 1955 Screening for malignant neoplasm of colon [facility] Chest physiotherapy Chest physio therapy Respiratory Care Routine Daily until discontinued starting 03/12/2021 [facility] Work Phone: Immunizations Immunization Date Immunization Notes Care Provider [facility] 08-09-2022 influenza virus vacc ine, unspecified formulation Pineda Little MD Work Phone: [facility] 12-02-2021 SARS-CoV-2, Unspecified Pineda Little MD Work Phone: [facility] 08-20-2021 influenza virus vacc ine, unspecified formulation Pineda Little MD Work Phone: [facility] 02-13-2021 COVID-19, Moderna, P F, 100mcg/0.5mL Marcie Shay EVENT MARKETING MANAGER - WHEEL PRESS OPERATOR Work Phone: [facility] Work Phone: 02-13-2021 SARS-CoV-2, Unspecified Pineda Little MD Work Phone: [facility] 01-15-2021 COVID-19, Moderna, P F, 100mcg/0.5mL Marcie Shay EVENT MARKETING MANAGER - WHEEL PRESS OPERATOR Work Phone: [facility] Work Phone: 01-15-2021 SARS-CoV-2, Unspecified Pineda Little MD Work Phone: [facility] 01-02-2020 pneumococcal polysaccharide vaccine, 23 valent [facility] 12-13-2018 pneumococcal conjuga te vaccine, 13 valent [facility] 08-22-2014 influenza virus vacc ine, unspecified formulation [facility] 08-22-2014 influenza, high dose seasonal, preservative-free Marcie Shay EVENT MARKETING MANAGER - WHEEL PRESS OPERATOR Work Phone: [facility] Work Phone: 09-05-2009 pneumococcal polysaccharide vaccine, 23 valent [facility] 08-16-2009 pneumococcal Conjuga te, unspecified formulation Marcie Shay EVENT MARKETING MANAGER - WHEEL PRESS OPERATOR Work Phone: [facility] Work Phone: Payers Date Payer Category Payer Private Health Insurance [id number] 2021 Private Health Insurance [id number] 2019 Unknown [employer] [address] [id number] 2019-Present [phone] [address] [place] [address] [id number] 2018 Medicare [id number] 2018 Medicare [id number] 2017 Private Health Insurance [facility] xxxxxxxxx 2017-Present [phone] [address] [place] [address] xxxxxxxxx [id number] 1955 Unknown [id number] Social History Date Type Detail Facility Start: 02-01-1981 End: 03-12-2021 Tobacco smoking status NHIS Current every day smoker [place] Start: 02-01-1981 End: 03-12-2021 History of tobacco use Cigarette Sm[place] Start: 07-08-2020 End: 05-20-2023 Cigarettes smoked current (pack per day) - Reported [place] Start: 07-08-2020 End: 11-17-2022 Tobacco use and exposure Never used [place] Start: 07-08-2020 End: 11-24-2023 Alcohol intake Current drinker of alcohol (finding) [place] Start: 06-13-2019 End: 05-24-2021 History SDOH Alcohol Frequency 5 [place] Start: 06-13-2019 History SDOH Alcohol Std Drinks 2 [place] Start: 06-13-2019 End: 05-24-2021 History SDOH Alcohol Binge 1 [place] Start: 06-13-2019 History SDOH Social Connections Phone 3 [place] Start: 06-13-2019 History SDOH Physica l Activity DPW 0 [place], [place] Start: 1955 Sex Assigned At Not on file [place] Start: 05-10-2023 End: 07-07-2023 Exposure to SARS-CoV-2 (event) Not sure [facility] Work Phone: Start: 06-13-2019 End: 05-20-2023 [facility] Start: 02-20-2021 Alcohol Comment couple beers a day [facility] Work Phone: Start: 03-12-2021 End: 08-07-2023 Alcohol intake Ex-drinker (finding) [facility] Work Phone: Start: 05-16-2021 End: 11-17-2022 Tobacco smoking status NHIS Former smoker [facility] Start: 02-01-1981 End: 03-12-2021 History of tobacco use Current smoker [facility] Sex Assigned At Sex [facility] National Score (1-10 0), lower number is lower risk [address] [facility] Medical Equipment Procedure Code Equipment Code Equipment Origin al Text Equipment Identifier Dates USE TO TEST BLOO D SUGAR 2 TIMES A DAY [id number] Start: 05-07-2023 Goals Date Patient Goal Desired Activity /State Clinical Notes 03-15-2021 to 11-24-2023 Em Paz PA-C - 11/24/2023 3:20 PM ESTTelephone Encounter - Merlene Andino RN - 11/24/2023 12:25 PM ESTTelephone Encounter - Merlene Andino RN - 11/24/2023 12:25 PM ESTInstructions Note Date & Type Note Facility 11-24-2023 History of Presen t illness Narrative Images from the original note were not included. [facility] [address] [place] [address] [address] [facility] [address] Dept: [phone] Dept Loc: [phone] Visit type: Established Patient Reason for Visit: Epistaxis (Nose Bleed) (On Eliquis ) Assessment and Plan 1. Epistaxis Comments: Encouraged use of moisturizer such as Vaseline in the nasal passageway and intermittent use of Afrin cottonball with direct pressure Orders: - External referral to ENT 2. Skin tear of right upper arm without complication, initial encounter 3. Upper respiratory tract infection, unspecified type Comments: Acute URI symptoms encouraged symptomatic supportive care. -Epistaxis appears to be anterior aspect right nare is completely resolved there is no signs of active bleeding encouraged to use a cottonball soaked in Afrin nasal spray and apply for 20 to 30 minutes and do that twice a day to help keep the bleeding under control for the next 3 days. Will be referred over to a local ENT here for second opinion did also encourage use cool compress on the back of the neck leaning forward never had back keep the direct pressure on the soft part of the nose to control the bleeding. - She sustained a skin tear to the lateral aspect of the right upper arm he states he had a Band-Aid on his arm when he took the bandage off the Band-Aid tore the skin this was dressed with bacitracin and nonadhesive dressing. Maulik wrap was applied over the nonadhesive dressing good pulses were intact after the placement of the adhesive bandage. There is no signs of overt constriction, encouraged to continue doing so wound care instructions discussed at bedside. Follow up if symptoms worsen or fail to improve, for Next scheduled follow-up. Subjective HPI this is a 68-year-old male with underlying history of encephalopathy, lung CA, renal cell carcinoma, COPD, hypertension, coronary disease and peripheral artery disease currently anticoagulated with Eliquis who contacted the [facility] for immediate same-day appointment evaluation for concerns that he has had 3 nosebleeds and having a difficult time getting the bleeding under control. Although he states when he called he was not actively having any bleeding. Patient states he had problems before he is to see an clinical research associate at [facility] it has been sometime he is to have his nose cauterized was not sure if he was able to get it cauterized here today although he admits that he had no further episodes of bleeding today. Does state he has tried Afrin in the past usually when it starts bleeding he just puts his order to open his nose however I did encourage him to use more of a soaked pledget in the nostril when it starts bleeding to control the bleeding. He also reports that he had previously cut his right arm and a Band-Aid on the outer aspect of his right arm but when he took the bandage off today and tore the skin leaving a long linear skin tear that he had bandaged but he was requesting it to be reevaluated and redressed here also placement states he is fighting a little bit of a cold with some congestion but he does not want any further medicine for this. Review of Systems Constitutional: Negative for chills and fever. HENT: Positive for congestion and nosebleeds. Negative for sinus pressure, sore throat and trouble swallowing. Respiratory: Negative for cough and shortness of breath. Cardiovascular: Negative for chest pain. Gastrointestinal: Negative for diarrhea, nausea and vomiting. Musculoskeletal: Negative for myalgias. Skin: Positive for wound. All other systems reviewed and are negative. No Known Allergies Outpatient Medications Prior to Visit Medication Sig Dispense Refill amLODIPine (Norvasc) 10 MG tablet Take 1 tablet (10 mg) by mouth daily for 180 doses. 90 tablet 1 apixaban (Eliquis) 5 MG tablet Take 0.5 tablets by mouth in the morning and 0.5 tablets in the evening. carvedilol (Coreg) 25 MG tablet Take 1 tablet (25 mg) by mouth in the morning and 1 tablet (25 mg) in the evening. Take with meals. 180 tablet 1 dexAMETHasone (Decadron) 1 MG tablet Take 1 mg by mouth 3 times daily. hydrALAZINE (Apresoline) 50 MG tablet Take 1 tablet (50 mg) by mouth 2 times daily. 180 tablet 1 ipratropium-albuterol (Duo-Neb) 0.5-2.5 mg/3 mL nebulizer solution Inhale 3 mL. nitroglycerin (Nitrostat) 0.[address] 0.4 mg under the tongue. omeprazole (PriLOSEC) [address] capsule Take 1 capsule (20 mg) by mouth in the morning and 1 capsule (20 mg) in the evening. Do all this for 180 doses. 180 capsule 1 pantoprazole (ProtoNix) 40 MG EC tablet Take by mouth. pembrolizumab (Keytruda) 100 MG/4ML chemo injection Infuse 200 mg into a venous catheter. prednisoLONE acetate (Pred-Forte) 1 % ophthalmic suspension Please see attached for detailed directions Refresh Optive Advanced PF 0.5-1-0.5 % solution Administer 1 drop into both eyes 2 times daily. rosuvastatin (Crestor) 40 MG tablet TAKE 1 TABLET (40 MG) BY MOUTH DAILY FOR 90 DOSES. 90 tablet 1 triamcinolone (Kenalog) 0.1 % cream Lancets (OneTouch Delica Plus [id number]) misc USE TO TEST BLOOD SUGAR 2 TIMES A DAY OneTouch Ultra test strip USE TO TEST BLOOD SUGAR 2 TIMES A DAY No facility-administered medications prior to visit. Past Medical History: Diagnosis Date Adenocarcinoma of right lung (HCC) 02/2021 Aortic stenosis, mild 06/2002 Bleeding ulcer Brain lesion CAD (coronary artery disease) [address] Mcguire, [place] Blue COPD (chronic obstructive pulmonary disease) (HCC) per [facility] (smoker) COVID-19 virus infection 10/2021 DDD (degenerative disc disease), cervical NSAID therapy Essential hypertension 1993 Ex-smoker for less than 1 year 03/2021 Family history of diabetes mellitus sister Gastric polyps 12/[address] Ramírez, becky also H/O colonoscopy 02/2019 [facility]- small polyp- due 2023 History of colon polyps 2000 [facility] History of renal carcinoma 07/[address] Tariq History of SCC (squamous cell carcinoma) of skin 2011 scalp - [facility] Hypercholesterolemia LDL PAD (peripheral artery disease) (HCC) 07/2019 Rt worse than Lt, pt defering angiogram rec per Dr. 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 Cuevas, Tiara MEZA oncologist Social History Tobacco Use Smoking status: Former Packs/day: 1.5 Types: Cigarettes Start date: 02/01/1981 Quit date: 03/12/2021 Years since quittin.7 Smokeless tobacco: Never Substance Use Topics Alcohol use: Yes Alcohol/week: 14.0 standard drinks of alcohol Past Surgical History: Procedure Laterality Date COLONOSCOPY 02/2019 [facility]- small polyp- due 2023 COLONOSCOPY 2013 [facility] CORONARY ANGIOPLASTY WITH STENT PLACEMENT 2003 LUNG REMOVAL, PARTIAL Right 03/12/2021 VATS thoractomy NEPHRECTOMY Left 2005 [facility] OTHER SURGICAL HISTORY 02/20/2021 EBUS/ENB SKIN CANCER DESTRUCTION 2012 squamous cell per [facility] UPPER GASTROINTESTINAL ENDOSCOPY 12/2021 Dr. Ramírez- mild gastritis with small HH Family History Problem Relation Name Age of Onset Coronary artery disease Mother CABG Coronary artery disease Sister Amairani CABG Stroke Mother age 77 Lung cancer Mother No Known Problems Sister No Known Problems Brother William No Known Problems Sister No Known Problems Sister Diabetes Sister Amairani Coronary artery disease Father age 50 [place] - smoker Coronary artery disease Brother Kaiden age 47 [place] Objective BP 138/64 (BP Location: Left arm, Patient Position: Sitting, BP Cuff Size: Large adult) Pulse 88 Temp 37.1 C (98.7 F) (Temporal) Ht 5' 5 (1.651 m) Wt 211 lb (95.7 kg) SpO2 95% BMI 35.11 kg/m Physical Exam Vitals reviewed. Constitutional: General: He is not in acute distress. Appearance: Normal appearance. He is not toxic-appearing. HENT: Nose: Nose normal. Comments: There is an area of dried blood on the septum on the right side however there is no signs of active bleeding there is no signs of septal hematoma or other acute abnormalities. Mouth/Throat: Mouth: Mucous membranes are moist. Pharynx: No oropharyngeal exudate or posterior oropharyngeal erythema. Eyes: General: No scleral icterus. Conjunctiva/sclera: Conjunctivae normal. Pupils: Pupils are equal, round, and reactive to light. Cardiovascular: Rate and Rhythm: Normal rate and regular rhythm. Heart sounds: Normal heart sounds. Pulmonary: Effort: Pulmonary effort is normal. No respiratory distress. Breath sounds: Wheezing present. No rales. Musculoskeletal: Cervical back: Normal range of motion and neck supple. Skin: General: Skin is warm and dry. Comments: There is a linear skin tear approximately 2 cm wide by 6 cm long superficial nature no active bleeding running sagittally front the back lateral aspect right upper arm Neurological: Mental Status: He is alert. Psychiatric: Mood and Affect: Mood normal. Data Reviewed and Summarized Labs: Imaging/Testing: Em Paz PA-C 11/24/2023 Please note that portions of this note may have been completed with voice recognition software. Documentation reviewed prior to signing but minor errors in case management specialist may have occurred. documented in this encounter [facility] 11-24-2023 Telephone encounter Note S: Patient spoke with [facility] nurse regarding nose bleeds B: Onset of symptoms/concern unknown A: Pt endorses daily nose bleeds for awhile , unable to state time frame. Has had three nose bleeds today, currently no bleeding noted. Denies - dizziness or shortness of breath, Pt currently on Eliquis. R: Second same day 11/24/23 at 3:20 PM with Giuliana LAZARO. Home care advise given for nose bleed. Patient understands care advice. No further needs at this time. Patient instructed to call back with new or worsening symptoms. Reason for Disposition Taking Coumadin (warfarin) or other strong blood thinner, or known bleeding disorder (e.g., thrombocytopenia) Protocols used: [id number] [facility] 11-24-2023 Miscellaneous Notes S: Patient spoke with [facility] nurse regarding nose bleeds B: Onset of symptoms/concern unknown A: Pt endorses daily nose bleeds for awhile , unable to state time frame. Has had three nose bleeds today, currently no bleeding noted. Denies - dizziness or shortness of breath, Pt currently on Eliquis. R: Second same day 11/24/23 at 3:20 PM with Giuliana LAZARO. Home care advise given for nose bleed. Patient understands care advice. No further needs at this time. Patient instructed to call back with new or worsening symptoms. Reason for Disposition Taking Coumadin (warfarin) or other strong blood thinner, or known bleeding disorder (e.g., thrombocytopenia) Protocols used: [id number] documented in this encounter [facility] 11-17-2023 Note HNO ID: [id number] Author: FRANCOIS LINDSAY MD Service: ? Author Type: Physician Type: Progress Notes Filed: 11/17/2023 11:19 Note Text: NEUROSURGERY FOLLOW UP OFFICE NOTE Dr. Francois Lindsay MD, FACS Date of visit: November 17, 2023 Patient Name: Mr.Larry Linda Iraheta Sr. Date of : 1955 Current Age: [age] year old Sex: male MRN/E# [id number] Last Office Visit: 10/27/2023 CHIEF COMPLAINT: Patient presents with: Established Patient SUBJECTIVE: The patient presents as a follow up without new imaging for evaluation and medication adjustment. 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 Kinsey Tao for neurosurgical evaluation. In October 2022 he was found to have a 1.6 cm enhancing hemorrhagic mass in the left posterior parietal lobe. He underwent SRS (SBRT) to the metastatic lesion at [place]. Two months following treatment MRI was completed and demonstrated an increase in the size of the enhancing mass without any new lesions noted. Short-term MRI follow-ups were obtained and continue to show increase in size and vasogenic edema. On 03/19/2023 he sustained a right-sided seizure and was treated medically. Decadron was resumed. MRI of the brain with perfusion was obtained on 04/16/2023 for evaluation. 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 His oncologist discussed the potential need to have surgical intervention and referred him for a neurosurgical evaluation. He was seen by an outside neurosurgeon on 05/20/2023 however imaging was unable to be reviewed at the time. He followed up with his heme/onc physician Dr. Angela Rodriguez on 05/27/2023 who placed a STAT referral for evaluation with Neurosurgery. He was then seen for consult on 05/29/23 and was doing well on oral Decadron. He denied any recurrent seizures and was not taking any seizure medications. Neurologically he was intact on exam without focal deficit. MRI brain from April 2023 was reviewed and showed a mix of necrosis as well as viable tumor. Recommendation was to obtain a follow up MRI with perfusion before treatment plan determined. Once MRI was completed and reviewed it was discussed that there was evidence of edema around the lesion that appeared to likely be necrosis rather than recurrent tumor. He was advised to decrease the Decadron slowly and follow up with repeat MRI at the end of June. Since then he has been seen routinely for evaluation with imaging. Attempts have been made to wean him off of the Decadron without success. He had a fall in October 2023 and was taken to an outside ED. CT head was completed and was suspicious for tumor progression/edema followed by an MRI which was inconclusive regarding radiation necrosis versus pseudo progression of the tumor. Decadron was adjusted and MRI with perfusion study was obtained. He was last seen in the office on 10/27/2023 and reported that he was doing well. He denied any headaches but reported that he sustained another fall a few weeks prior. Since the fall he was having numbness in the right arm and leg. He continued with Decadron 1 mg twice daily. Since last visit he states he is doing well. He denies any headaches, States he had a fall a few weeks ago. Since then he is having numbness in the right arm and leg. He denies any additional issues. Neurologically he was intact on exam without focal deficit. MRI was reviewed and discussed with the radiologist and the forthcoming report would indicate that the changes are consistent with radiation necrosis rather than recurrence of the tumor. He was advised to decrease the steroid to 0.5 mg twice daily and return in 3 weeks to determine if the medication could be weaned off completely prompting his visit today. Since last visit he states he is overall doing well. Reports episodes of dizziness, especially after taking the Decadron. Denies any new issues otherwise. He presents for evaluation and plan of care. Decrease Decadron to 0.5 mg once a day until follow up in 3 months SYMPTOMS: Dizziness PREVIOUS CONSERVATIVE TREATMENTS: None SURGICAL RISK: Smoker: Former Diabetic: No Anticoagulants / Antiplatelets: Eliquis Occupation: N/A PREVIOUS SURGERY: SURGERY #1: SRS (SBRT) to a solitary metastatic brain tumor on 10/28/2022 at an outside hospital. 1. Left posterior parietal - 2400 cGy in 1 fraction ONCOLOGY TREATMENT TEAM: Hematology / Oncology - Dr. Angela Rodriguez Radiation/ Oncology - Dr. Jeancarlos Tao ([place]) PAIN EVALUATION No data found in the last 1 encounters. PAST MEDICAL HISTORY Diagnosis Date Coronary artery disease Stents History of colon polyps Hypertension Skin cancer PAST SURGICAL HISTORY Proce (more content not included)... [facility] 10-27-2023 Note HNO ID: [id number] Author: Francois Lindsay MD Service: ? Author Type: Physician Type: Progress Notes Filed: 10/27/2023 12:12 PM Note Text: NEUROSURGERY FOLLOW UP OFFICE NOTE Dr. Francois Lindsay MD, FACS Date of visit: October 27, 2023 Patient Name: Mr.Larry Linda Iraheta Sr. Date of : 1955 Current Age: [age] year old Sex: male MRN/E# [id number] Last Office Visit: August 07, 2023 CHIEF COMPLAINT: Patient presents with: Established Patient SUBJECTIVE: The patient presents as a follow up with imaging (MRI B- perfusion) for evaluation. 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 Kinsey Tao for neurosurgical evaluation. In October 2022 he was found to have a 1.6 cm enhancing hemorrhagic mass in the left posterior parietal lobe. He underwent SRS (SBRT) to the metastatic lesion at [facility]. Two months following treatment MRI was completed and demonstrated an increase in the size of the enhancing mass without any new lesions noted. Short-term MRI follow-ups were obtained and continue to show increase in size and vasogenic edema. On 03/19/2023 he sustained a right-sided seizure and was treated medically. Decadron was resumed. MRI of the brain with perfusion was obtained on 04/16/2023 for evaluation. 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 His oncologist discussed the potential need to have surgical intervention and referred him for a neurosurgical evaluation. He was seen by an outside neurosurgeon on 05/20/2023 however imaging was unable to be reviewed at the time. He followed up with his heme/onc physician Dr. Angela Rodriguez on 05/27/2023 who placed a STAT referral for evaluation with Neurosurgery. He was seen for consult on 05/29/23 and was doing well on Decadron 2 mg once daily. He denied any recurrent seizures and was not taking any seizure medications. Neurologically he was intact on exam without focal deficit. MRI brain from April 2023 was reviewed and showed a mix of necrosis as well as viable tumor. Recommendation was to obtain a follow up MRI with perfusion before treatment plan determined. Once MRI was completed and reviewed it was discussed that there was evidence of edema around the lesion that appeared to likely be necrosis rather than recurrent tumor. He was advised to decrease the Decadron slowly and follow up with repeat MRI at the end of June. He was last seen in the office on 08/07/23. Prior to his visit he developed increasing headaches and dizziness while weaning off the oral steroids. His dose was increased and symptoms improved. MRI was reviewed and appeared stable. Decadron was continued at 1 mg twice daily and follow-up in 3 months with repeat MRI. Since his last visit we were able to get the Decadron down to 0.5 mg twice daily. Patient had a fall recently and was seen at an outside ED where CT of the brain was completed. This showed concern for tumor progression/edema and subsequently MRI was completed. 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 He was advised to increase the Decadron to 1 mg twice daily and obtain an MRI without and with contrast enhancement plus perfusion study and follow-up once completed prompting his visit today. Since last visit he states he is doing well. He denies any headaches, States he had a fall a few weeks ago. Since then he is having numbness in the right arm and leg. He denies any additional issues. He presents for image review, evaluation and plan of care. Decrease Decadron to 0.5 mg po BID. SYMPTOMS: right arm and leg numbness PREVIOUS CONSERVATIVE TREATMENTS: Oral Decadron SURGICAL RISK: Smoker: Former Diabetic: No Anticoagulants / Antiplatelets: Eliquis Occupation: Na PREVIOUS SURGERY: SURGERY #1: SRS (SBRT) to a solitary metastatic brain tumor on 10/28/2022 at an outside hospital. 1. Left posterior parietal - 2400 cGy in 1 fraction ONCOLOGY TREATMENT TEAM: Dr. Angela Rodriguez - Hematology / Oncology Dr. Jeancarlos Tao - Radiation/ Oncologist ([place]) PAIN EVALUATION No data found in the last 1 encounters. PAST MEDICAL HISTORY Diagnosis Date Coronary artery disease Stents History of colon polyps Hypertension Skin cancer PAST SURGICAL HISTORY Procedure Laterality Date COLONOSCOPY 02/21/2019 Tubular adenoma rectum EGD 12/18/2021 marked villious blunting in duodenum, duodenitis, chronic inactive gastritis PAST SURGICAL HISTORY OF Right Kidney Removal for CA FAMILY HISTORY Problem Relation Age of Onset Colon Cancer No Family History ALLERGIES No Known Allergies Current Outpatient Medications Medication Sig Dispense Refill (more content not included)... [facility] 10-27-2023 Note HNO ID: [id number] Author: Atif Mchugh RT(R) Service: Radiology Author Type: Technologist Type: Progress Notes Filed: 10/27/2023 10:19 AM Note Text: Radiology Service Progress Note DATE OF SERVICE: October 27, 2023 TIME: 10:18 AM PATIENT IDENTITY VERIFICATION COMPLETED USING TWO (2) STANDARD IDENTIFIERS: Name and Date of confirmed by patient verbally. FALL SCREENING: Has the patient had 2 falls in the last year or 1 fall with injury or currently using an Ambulatory Assistive Device (Walker, Cane, Wheelchair, Crutches, etc.)? No PATIENT GENDER DATA: Male PATIENT RELEVANT IMPLANT DATA REVIEWED: Yes ALLERGIES: Reviewed and unchanged CONTRAST ALLERGY: NO. EXAM: MRI - CONTRAST TYPE: GROUP II PERIPHERAL IV DATA: Ambulatory: A peripheral IV was started in the Right antecubital site with a Angio cath: 20 gauge. RADIOLOGY DEPARTMENT: MR; Exam(s) Completed: Head: Routine Brain with Perfusion SIGNATURE: RT Guillermo(R) PATIENT NAME: Kenn Iraheta . DATE: October 27, 2023 TIME: 10:18 AM [facility] 10-19-2023 Note HNO ID: [id number] Author: Carin Neri RT(R) Service: Radiology Author Type: Technologist Type: Progress Notes Filed: 10/19/2023 7:03 PM Note Text: Radiology Service Progress Note DATE OF SERVICE: October 19, 2023 TIME: 7:02 PM PATIENT IDENTITY VERIFICATION COMPLETED USING TWO (2) STANDARD IDENTIFIERS: Name and Date of confirmed by patient verbally and Name and Date of confirmed by identification band. FALL SCREENING: Has the patient had 2 falls in the last year or 1 fall with injury or currently using an Ambulatory Assistive Device (Walker, Cane, Wheelchair, Crutches, etc.)? Yes, Patient High Risk for Falls What interventions were put in place to prevent falls during this visit? [place] Risk Wristband Applied, Instructed Patient to Call for Help if Needed, Offered Assistance with Transfers/Clothing, Instructed Patient to Remain Seated (Not on Exam Table) Until Exam, and Increased Observations by Caregivers PATIENT GENDER DATA: Male PATIENT RELEVANT IMPLANT DATA REVIEWED: Yes ALLERGIES: Reviewed and unchanged CONTRAST ALLERGY: NO. EXAM: MRI - CONTRAST TYPE: GROUP II PERIPHERAL IV DATA: Ambulatory: RN from ED assisted with IV RADIOLOGY DEPARTMENT: MR; Exam(s) Completed: Head: Routine Brain SIGNATURE: Jasmeet Oates RT(R) PATIENT NAME: Kenn Iraheta Sr. DATE: October 19, 2023 TIME: 7:02 PM [facility] 10-19-2023 History of Presen t illness Narrative Radiology Service Progress Note DATE OF SERVICE: October 19, 2023 TIME: 7:02 PM PATIENT IDENTITY VERIFICATION COMPLETED USING TWO (2) STANDARD IDENTIFIERS: Name and Date of confirmed by patient verbally and Name and Date of confirmed by identification band. FALL SCREENING: Has the patient had 2 falls in the last year or 1 fall with injury or currently using an Ambulatory Assistive Device (Walker, Cane, Wheelchair, Crutches, etc.)? Yes, Patient High Risk for Falls What interventions were put in place to prevent falls during this visit? [place] Risk Wristband Applied, Instructed Patient to Call for Help if Needed, Offered Assistance with Transfers/Clothing, Instructed Patient to Remain Seated (Not on Exam Table) Until Exam, and Increased Observations by Caregivers PATIENT GENDER DATA: Male PATIENT RELEVANT IMPLANT DATA REVIEWED: Yes ALLERGIES: Reviewed and unchanged CONTRAST ALLERGY: NO. EXAM: MRI - CONTRAST TYPE: GROUP II PERIPHERAL IV DATA: Ambulatory: RN from ED assisted with IV RADIOLOGY DEPARTMENT: MR; Exam(s) Completed: Head: Routine Brain SIGNATURE: Jasmeet Oates RT(R) PATIENT NAME: Kenn Iraheta Sr. DATE: October 19, 2023 TIME: 7:02 PM documented in this encounter [facility] 10-19-2023 Miscellaneous Notes After speaking with patient's , I noticed [facility] (where is was scheduled for MRI on 10/26), had an MRI opening tonight and one tomorrow as well. Called and discussed with patient and his . They opted to take the appointment tonight. I rescheduled appointment and told them I'd still be in touch tomorrow after speaking with Laurie or Dr. Lindsay. They were appreciative. Patient's , Karen, called in reporting that patient fell on 10/13. Since the fall he complains of some numbness in his extremities as well as some confusion. He was seen in the ED at [facility]. They did a CT scan (I called and requested it be [facility] to [facility] for [facility] to [facility]). Patient is scheduled for follow up MRI on 10/[address] Lindsay on 10/30, but Karen is asking if patient should be seen sooner due to new symptoms. I let her know I would discuss with Dr. Lindsay's nurse practitioner, Laurie, and get back to her as soon as I am able. She was appreciative. documented in this encounter [facility] 09-08-2023 Miscellaneous Notes I called and spoke to patients regarding the message that was left for patients meds. The patients understood documented in this encounter [facility] 09-08-2023 Miscellaneous Notes Returned call to patient's spouse Karen. Left a voice message regarding resuming Decadron. Discussed that Kenn should resume 0.5 mg twice daily x1 week and then he should take 0.5 mg once a day thereafter until we see him back in the office as scheduled. I told her to please feel free to contact my direct office phone with any questions or concerns. Laurie Westfall APRN-THANH Neurosurgery Nurse Practitioner [facility] 8:59 AM 09/08/2023 documented in this encounter [facility] 09-03-2023 Miscellaneous Notes Received a call from the patient's Karen. She reported that Kenn was diagnosed with pneumonia and placed on oral prednisone by his quality officer. She was wondering if he should continue taking the prescribed dexamethasone with the prednisone or not. I returned the call to Kenn and spoke with him. I told him to please stop the dexamethasone while taking the prednisone. He was uncertain of the dosage but believes he will be on it for 5 days. I told him I will discuss this with Dr. Lindsay tomorrow and contact him with further instructions regarding resuming dexamethasone or not. KALEY Hurtado Neurosurgery Nurse Practitioner [facility] 12:44 PM 09/03/2023 documented in this encounter [facility] 08-25-2023 Miscellaneous Notes Spoke to patient via phone. States he is tolerating Decadron 0.5 mg BID. I discussed this with Dr. Lindsay who said that Kenn should stay on this dosage for now. KALEY Hurtado Neurosurgery Nurse Practitioner [facility] 1:13 PM 08/25/2023 documented in this encounter [facility] 08-18-2023 Miscellaneous Notes Contacted the patient and his via phone number on file. Discussed how he is feeling with the decreased dosage of Decadron. He reported that he was tolerating this well without any side effects. I advised him to decrease the dosage to 0.5 mg BID and that we would contact him via phone in one week to determine if this can be discontinued or decreased further. All of his questions and concerns were addressed in detail. KALEY Hurtado Neurosurgery Nurse Practitioner [facility] 11:55 AM 08/18/2023 documented in this encounter [facility] 08-14-2023 Miscellaneous Notes I returned patients vm and confirmed follow up phone appt on 08/18/23 at 9:30 am documented in this encounter [facility] 08-07-2023 Note HNO ID: [id number] Author: Francois Lindsay MD Service: ? Author Type: Physician Type: Progress Notes Filed: 08/07/2023 10:34 AM Note Text: NEUROSURGERY FOLLOW UP OFFICE NOTE Dr. Francois Lindsay MD, FACS Date of visit: August 07, 2023 Patient Name: Mr.Larry Linda Iraheta Sr. Date of : 1955 Current Age: [age] year old Sex: male MRN/E# [id number] Last Office Visit: 06/09/2023 CHIEF COMPLAINT: Patient presents with: Established Patient SUBJECTIVE: The patient presents as a follow up with imaging (MRI B) for evaluation. This is a 67-year-old male with a PMHx of stage IV renal cell carcinoma (left kidney-2005), left total nephrectomy, grade III adenocarcinoma of the lung (03/13/2021), s/p right lobectomy with metastasis to the brain (10/2022) who was referred by Dr. Kinsey Tao for neurosurgical evaluation. He was seen for consult on 05/29/2023 and reported a history of metastatic cancer as noted above. In October 2022 he was found to have a 1.6 cm enhancing hemorrhagic mass in the left posterior parietal lobe. He underwent SRS (SBRT) to the metastatic lesion consisting of 2400 cGy in 1 fraction at [facility]. Two months following treatment repeat MRI of the brain was completed and demonstrated an increase in the size of the enhancing mass without any new lesions noted. This was expected to be treatment related. Short-term MRI follow-ups were obtained and continue to show increase in size and vasogenic edema. On 03/19/2023 he sustained a right-sided seizure. While in the emergency department a CT of the brain without contrast was performed and continue to demonstrate extensive edema but no acute abnormalities. He was placed on oral dexamethasone. He underwent a repeat MRI of the brain with perfusion and spectroscopy on 04/16/2023. 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 His oncologist discussed the potential need to have surgical intervention and referred him for a neurosurgical evaluation. He was advised to continue on Keytruda and to continue oral Decadron. He was seen by an outside neurosurgeon on 05/20/2023 however imaging was unable to be reviewed at the time. He followed up with his heme/onc physician Dr. Angela Rodriguez on 05/27/2023 who placed a STAT referral for evaluation with Neurosurgery. He was seen on 05/29/23 and was doing well on Decadron 2 mg once daily. He denied any seizures since March 2023 and was not taking any seizure medications. Neurologically he was intact on exam without focal deficit. MRI brain from April 2023 was reviewed and showed a mix of necrosis as well as viable tumor. He was last seen on 06/09/23 after MRI of the brain with perfusion sequence. He continued to do well without any new or concerning issues. He remained on Dexamethasone 2 mg daily per Rad/Onc. Neurologically he was intact without focal deficit. MRI showed edema around the lesion that appeared to be most likely necrosis rather than recurrent tumor. He was advised to decrease the Decadron slowly and return with another MRI at the end of June. Since then, his contacted the office with reported that headaches and dizziness developed after the steroid was tapered off. He was advised to take a loading dose then continue 1 mg TID until follow up. Today he states since his last visit he noted headaches, dizziness and lightheadedness at times. He was unsure if it was related to the steroids. He notes weakness with ambulating up stairs and feels this is related to the steroids. He notes cataract surgery on Thursday. He denies any further symptoms at this time. He presents for image review, evaluation and plan of care. SYMPTOMS: Headaches, dizziness, lightheadedness, weakness with stairs PREVIOUS CONSERVATIVE TREATMENTS: Decadron 1 mg TID SURGICAL RISK: Smoker: Former Diabetic: No Anticoagulants / Antiplatelets: Eliquis Occupation: Na PREVIOUS SURGERY: SURGERY #1: SRS (SBRT) to a solitary metastatic brain tumor on 10/28/2022 at an outside hospital. 1. Left posterior parietal - 2400 cGy in 1 fraction ONCOLOGY TREATMENT TEAM: Dr. Angela Rodriguez - Hematology / Oncology Dr. Jeancarlos Tao - Radiation/ Oncologist ([place]) PAIN EVALUATION No data found in the last 1 encounters. PAST MEDICAL HISTORY Diagnosis Date Coronary artery disease Stents History of colon polyps Hypertension Skin cancer PAST SURGICAL HISTORY Procedure Laterality Date COLONOSCOPY 02/21/2019 Tubular adenoma rectum EGD 12/18/2021 marked villious blunting in duodenum, duodenitis, chronic inactive gastritis PAST SURGICAL HISTORY OF Right Kidney Removal for CA FAMILY HISTORY Problem Relation Age of Onset Colon Cancer No Family History ALLERGIES No Known Allergies Current Outpatient Medications Medication Sig Dispense Refill prednisoLONE acetate (PRED FORTE) 1 % ophthalmic suspension INSTILL 1 DROP (more content not included)... [facility] 08-07-2023 History of Presen t illness Narrative NEUROSURGERY FOLLOW UP OFFICE NOTE Dr. Francois Lindsay MD, FACS Date of visit: August 07, 2023 Patient Name: Mr.Larry Linda Iraheta . Date of : 1955 Current Age: [age] year old Sex: male MRN/E# [id number] Last Office Visit: 06/09/2023 CHIEF COMPLAINT: Patient presents with: Established Patient SUBJECTIVE: The patient presents as a follow up with imaging (MRI B) for evaluation. This is a 67-year-old male with a PMHx of stage IV renal cell carcinoma (left kidney-2005), left total nephrectomy, grade III adenocarcinoma of the lung (03/13/2021), s/p right lobectomy with metastasis to the brain (10/2022) who was referred by Dr. Kinsey Tao for neurosurgical evaluation. He was seen for consult on 05/29/2023 and reported a history of metastatic cancer as noted above. In October 2022 he was found to have a 1.6 cm enhancing hemorrhagic mass in the left posterior parietal lobe. He underwent SRS (SBRT) to the metastatic lesion consisting of 2400 cGy in 1 fraction at [facility]. Two months following treatment repeat MRI of the brain was completed and demonstrated an increase in the size of the enhancing mass without any new lesions noted. This was expected to be treatment related. Short-term MRI follow-ups were obtained and continue to show increase in size and vasogenic edema. On 03/19/2023 he sustained a right-sided seizure. While in the emergency department a CT of the brain without contrast was performed and continue to demonstrate extensive edema but no acute abnormalities. He was placed on oral dexamethasone. He underwent a repeat MRI of the brain with perfusion and spectroscopy on 04/16/2023. 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 His oncologist discussed the potential need to have surgical intervention and referred him for a neurosurgical evaluation. He was advised to continue on Keytruda and to continue oral Decadron. He was seen by an outside neurosurgeon on 05/20/2023 however imaging was unable to be reviewed at the time. He followed up with his heme/onc physician Dr. Angela Rodriguez on 05/27/2023 who placed a STAT referral for evaluation with Neurosurgery. He was seen on 05/29/23 and was doing well on Decadron 2 mg once daily. He denied any seizures since March 2023 and was not taking any seizure medications. Neurologically he was intact on exam without focal deficit. MRI brain from April 2023 was reviewed and showed a mix of necrosis as well as viable tumor. He was last seen on 06/09/23 after MRI of the brain with perfusion sequence. He continued to do well without any new or concerning issues. He remained on Dexamethasone 2 mg daily per Rad/Onc. Neurologically he was intact without focal deficit. MRI showed edema around the lesion that appeared to be most likely necrosis rather than recurrent tumor. He was advised to decrease the Decadron slowly and return with another MRI at the end of June. Since then, his contacted the office with reported that headaches and dizziness developed after the steroid was tapered off. He was advised to take a loading dose then continue 1 mg TID until follow up. Today he states since his last visit he noted headaches, dizziness and lightheadedness at times. He was unsure if it was related to the steroids. He notes weakness with ambulating up stairs and feels this is related to the steroids. He notes cataract surgery on Thursday. He denies any further symptoms at this time. He presents for image review, evaluation and plan of care. SYMPTOMS: Headaches, dizziness, lightheadedness, weakness with stairs PREVIOUS CONSERVATIVE TREATMENTS: Decadron 1 mg TID SURGICAL RISK: Smoker: Former Diabetic: No Anticoagulants / Antiplatelets: Eliquis Occupation: Na PREVIOUS SURGERY: SURGERY #1: SRS (SBRT) to a solitary metastatic brain tumor on 10/28/2022 at an outside hospital. 1. Left posterior parietal - 2400 cGy in 1 fraction ONCOLOGY TREATMENT TEAM: Dr. Angela Rodriguez - Hematology / Oncology Dr. Jeancarlos Tao - Radiation/ Oncologist ([place]) PAIN EVALUATION No data found in the last 1 encounters. PAST MEDICAL HISTORY Diagnosis Date Coronary artery disease Stents History of colon polyps Hypertension Skin cancer PAST SURGICAL HISTORY Procedure Laterality Date COLONOSCOPY 02/21/2019 Tubular adenoma rectum EGD 12/18/2021 marked villious blunting in duodenum, duodenitis, chronic inactive gastritis PAST SURGICAL HISTORY OF Right Kidney Removal for CA FAMILY HISTORY Problem Relation Age of Onset Colon Cancer No Family History ALLERGIES No Known Allergies Current Outpatient Medications Medication Sig Dispense Refill prednisoLONE acetate (PRED FORTE) 1 % ophthalmic suspension INSTILL 1 DROP IN SURGICAL EYE 4 TIMES DAILY STARTING DAY OF SURGERY IMMEDIATELY FOLLOWING SURGERY omeprazole (PRILOSEC) 20 mg capsule PLEASE SEE ATTACHED FOR DETAILED DIRECTIONS ofloxacin (OCUFLOX) 0.3 % ophthalmic solution INSTILL 1 DROP IN SURGICAL EYE 4 TIMES DAILY STARTING 2 DAYS PRIOR TO SURGERY ONETOUCH DELICA PLUS LANCET 33 gauge USE TO TEST BLOOD SUGAR 2 TIMES A DAY keTORolac (ACULAR) 0.5 % ophthalmic solution INSTILL 1 DROP IN SURGICAL EYE 4 TIMES DAILY STARTING DAY OF SURGERY IMMEDIATELY FOLLOWING SURGERY ONETOUCH ULTRA2 METER USE TO TEST 2 TIMES DAILY ONETOUCH ULTRA TEST test strip USE TO TEST BLOOD SUGAR 2 TIMES A DAY ALCOHOL PREP PADS as directed. dexAMETHasone (DECADRON) 1 mg tablet Take 1 tablet by mouth three times daily. 90 tablet 2 amLODIPine (NORVASC) 10 mg tablet Take 10 mg by mouth once daily. ELIQUIS 5 mg tab(s) Take 0.5 tablets by mouth twice daily. carvedilol (COREG) 25 mg tablet Take 25 mg by mouth twice daily with meals. hydrALAZINE (APRESOLINE) 50 mg tablet Take 1 tablet by mouth twice daily. pembrolizumab (KEYTRUDA) 25 mg/mL injection Inject intravenously every 3 weeks. Last tx 05.27.2023 nitroglycerin sublingual (NITROSTAT) 0.4 mg SL tablet Dissolve 0.4 mg under the tongue. rosuvastatin (CRESTOR) 40 mg tablet Take 40 mg by mouth once daily. dexAMETHasone (DECADRON) 1 mg tablet Take 1 tablet by mouth three times daily. 30 tablet 0 iv contrast (will be provided with radiology test) MRI Brain Inject, intravenously, once for 1 dose.No IV access, insert saline lock prior to beginning of sedation, infusion, injection of imaging exam.Discontinue saline lock post exam. If Pt. has a central line or IVAD, may access for administration according to line specific nursing protocol.Once exam is complete flush line and de-access according to line specific nursing protocol in the MR contrast administration guidelines link 1 Each 0 No current facility-administered medications for this visit. REVIEW OF SYSTEMS: Review of Systems Constitutional: Negative for diaphoresis, fatigue and fever. HENT: Negative for congestion, sinus pressure and sore throat. Eyes: Negative for discharge and itching. Respiratory: Negative for cough, chest tightness and shortness of breath. Cardiovascular: Negative for chest pain, palpitations and leg swelling. Gastrointestinal: Negative for constipation, diarrhea, nausea and vomiting. Endocrine: Negative for cold intolerance and heat intolerance. Genitourinary: Negative for difficulty urinating, frequency and urgency. Musculoskeletal: Negative for back pain, gait problem, neck pain and neck stiffness. Skin: Negative for rash and wound. Allergic/Immunologic: Negative for environmental allergies and food allergies. Neurological: Positive for dizziness, weakness, light-headedness and headaches. Negative for numbness. Hematological: Does not bruise/bleed easily. Psychiatric/Behavioral: Negative for agitation. The patient is not nervous/anxious. OBJECTIVE: BP 148/74 Pulse 86 Resp 20 Ht 5' 5 (1.65m) Wt 203 lb 7.8 oz (92.3kg) SpO2 97% BMI 33.86 kg/(m^2). PHYSICAL EXAM: Mental State : Alert, memory function unremarkable. Attention span and concentration Normal for patient's age. Recent and remote memory normal Orientation : Oriented to time place and person Higher Cortical Function : Intact speech and language. Spontaneous speech and comprehension normal. Fund of knowledge intact for pt level of education. Cranial Nerves : II: No visual field cut no blurring. Makes and sustains eye contact III, IV, normal, no double vision or drooping. Pupils equal and reactive to light. Extraocular muscles intact. No nystagmus V Normal sensation on the face, normal jaw movements VII No paresis on either side. VIII No gross hearing deficit IX Normal palatal movements XI Good and equal shoulder shrus XII Tongue midline, no fasciculation Sensory : Normal Sensation in upper and lower extremities and trunk to touch and Noxious stimuli. Motor : Normal muscle tone and bulk. No tremor or uncontrollable movements No spasticity . Strength: Upper Extremities : R L Deltoid 5 5 Biceps 5 5 Triceps 5 5 Wrist Ext 5 5 Wrist Flx 5 5 Hand Int. 5 5 Lower Extremities : Hip Flexors 5 5 Hip Extensors 5 5 Hip Abductors 5 5 Hip Adductors 5 5 Quads 5 5 Hamstrings 5 5 Ankle dorsiflex 5 5 Ankle plantars 5 5 Heel Walking 5 5 Toe Walking 5 5 Reflexes : Biceps 2 2 Triceps 2 2 Wrist 2 2 Patellar 2 2 Achilles 2 2 Harp's Neg Neg Plantars Neg Neg Cerebellar Function : Normal finger to nose and rapid alternating movements. No ataxia Gait and Station: Normal IMAGING: MRI Brain WO/W IVCON performed on 08/04/23 demonstrates: IMPRESSION: 1. Stable left periatrial tumor treatment change. 2. No imaging evidence for recurrent/residual neoplasm is identified. 3. Faint stable enhancement at apex of bilateral IAC. 4. No additional abnormal enhancement or leptomeningeal disease. 5. No acute intracranial abnormalities noted. ASSESSMENT/PLAN: 1. Metastatic cancer to brain (HCC) - ICD9: 198.3, ICD10: C79.31 Patient with brain metastasis left parietal trigonal area that was treated at [facility] with SRS and presently is on decreasing Decadron. He switched from 3 mg total a day to 2 mg total a day. His neurological examination is normal and his MRI scan on 04 August 2023 is stable. As he is asymptomatic right now I told him to stay on 1 mg twice daily of Decadron and call us in 1 week and let us know how he is doing in which case if he is stable then we can reduce him to half milligram twice daily. We will plan to have him get an MRI scan in 3 months without and with contrast. - MRI BRAIN WO/W IVCON - IV CONTRAST (RADIOLOGY PROCEDURE) Francois Lindsay MD FOLLOW UP: Return in about 1 week (around 08/14/2023) for call with how he feels with reduction of steroids in 1 week. Please Note: This note has been partially generated using [employer] Ro[employer], a speech recognition software program, and may contain errors including punctuation, grammar, spelling, gender, and inappropriate words or phrases that pertain to the system. documented in this encounter [facility] 08-04-2023 Note HNO ID: [id number] Author: Carin Neri RT(R) Service: Radiology Author Type: Technologist Type: Progress Notes Filed: 08/04/2023 10:56 AM Note Text: Radiology Service Progress Note DATE OF SERVICE: August 04, 2023 TIME: 10:56 AM PATIENT IDENTITY VERIFICATION COMPLETED USING TWO (2) STANDARD IDENTIFIERS: Name and Date of confirmed by patient verbally and Name and Date of confirmed by identification band. FALL SCREENING: Has the patient had 2 falls in the last year or 1 fall with injury or currently using an Ambulatory Assistive Device (Walker, Cane, Wheelchair, Crutches, etc.)? No PATIENT GENDER DATA: Male PATIENT RELEVANT IMPLANT DATA REVIEWED: Yes ALLERGIES: Reviewed and unchanged CONTRAST ALLERGY: NO. EXAM: MRI - CONTRAST TYPE: GROUP II PERIPHERAL IV DATA: Ambulatory: [facility] RADIOLOGY DEPARTMENT: MR; Exam(s) Completed: Head: Routine Brain SIGNATURE: RT Karis(R) PATIENT NAME: Kenn Iraheta Sr. DATE: August 04, 2023 TIME: 10:56 AM [facility] 07-07-2023 Miscellaneous Notes Contacted patient and spouse via phone. Mr. Iraheta is feeling much better since resuming Dexamethasone 1 mg PO TID. Discussed with Dr. Lindsay who recommends continuing the medication until his scheduled follow up. New Rx sent to pharmacy on file. KALEY Hurtado Neurosurgery Nurse Practitioner [facility] Ale Porras 1:12 PM 07/07/2023 documented in this encounter [facility] 07-03-2023 Miscellaneous Notes Returned call to patients spouse. She reported that Kenn completed his Decadron taper 2 days ago and since he has developed headaches and dizziness. Discussed with Dr. Lindsay who advised resuming the oral steroid. Take 4 mg now then 1 mg PO TID thereafter. We will reach out to the patient and/or his spouse early next week, Thursday, via phone for an update. All of her questions and concerns were addressed in detail. Laurie Westfall APRN-THANH Neurosurgery Nurse Practitioner [facility] 1:05 PM 07/03/2023 documented in this encounter [facility] 06-09-2023 Note HNO ID: [id number] Author: Francois Lindsay MD Service: ? Author Type: Physician Type: Progress Notes Filed: 06/09/2023 12:11 PM Note Text: NEUROSURGERY FOLLOW UP OFFICE NOTE Dr. Francois Lindsay MD, [facility] Date of visit: June 09, 2023 Patient Name: Mr.Larry Linda Iraheta . Date of : 1955 Current Age: [age] year old Sex: male MRN/E# [id number] Last Office Visit: 05/29/2023 CHIEF COMPLAINT: Patient presents with: Established Patient SUBJECTIVE: The patient presents as a follow up with imaging (MRI B) for evaluation. This is a 67-year-old male with a PMHx of stage IV renal cell carcinoma (left kidney-2005), left total nephrectomy, grade III adenocarcinoma of the lung (03/13/2021), s/p right lobectomy with metastasis to the brain (10/2022) who was referred by Dr. Kinsey Tao for neurosurgical evaluation. He was seen for consult on 05/29/2023 and reported a history of metastatic cancer as noted above. He reported In October 2022 he was found to have a 1.6 cm enhancing hemorrhagic mass in the left posterior parietal lobe. He then underwent SRS (SBRT) to the metastatic lesion consisting of 2400 cGy in 1 fraction at [facility]. Two months following treatment repeat MRI of the brain was completed and demonstrated an increase in the size of the enhancing mass without any new lesions noted. This was expected to be treatment related. Short-term MRI follow-ups were obtained and continue to show increase in size and vasogenic edema. On 03/19/2023 he sustained a right-sided seizure. While in the emergency department a CT of the brain without contrast was performed and continue to demonstrate extensive edema but no acute abnormalities. He was placed on oral dexamethasone. He underwent a repeat MRI of the brain with perfusion and spectroscopy on 04/16/2023. 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 His oncologist discussed the potential need to have surgical intervention and referred him for a neurosurgical evaluation. He was advised to continue on Keytruda and to continue oral Decadron. He was seen by an outside neurosurgeon on 05/20/2023 however imaging was unable to be reviewed at the time. He followed up with his heme/onc physician Dr. Angela Rodriguez on 05/27/2023 who placed a STAT referral for evaluation with a Neurosurgeon prompting his visit. At that time he denied any specific complaints or concerns. He continued on Decadron 2 mg once daily. Denied any recent seizures since March 2023 and was not taking any seizure medications. Neurologically he was intact on exam without focal deficit. MRI brain from April 2023 was reviewed and showed a mix of necrosis as well as viable tumor. Recommendation was to obtain a new MRI of the brain with perfusion sequence for comparison to prior scan and to follow-up once completed to determine plan of care. Since last visit he states he is overall doing well. He denies any new or concerning issues. He continues on Dexamethasone 2 mg daily per Rad/Onc. He presents for image review, evaluation and plan of care. Dexamethasone 1mg daily x 1 week, then 0.5 daily x 1 week then 0.5 mg every other day x 1 week SYMPTOMS: None PREVIOUS CONSERVATIVE TREATMENTS: None SURGICAL RISK: Smoker: Former Diabetic: No Anticoagulants / Antiplatelets: Eliquis Occupation: Na PREVIOUS SURGERY: SURGERY #1: SRS (SBRT) to a solitary metastatic brain tumor on 10/28/2022 at an outside hospital. 1. Left posterior parietal - 2400 cGy in 1 fraction ONCOLOGY TREATMENT TEAM: Dr. Angela Rodriguez - Hematology / Oncology Dr. Jeancarlos Tao - Radiation/ Oncologist ([place]) PAIN EVALUATION No data found in the last 1 encounters. PAST MEDICAL HISTORY Diagnosis Date Coronary artery disease Stents History of colon polyps Hypertension Skin cancer PAST SURGICAL HISTORY Procedure Laterality Date COLONOSCOPY 02/21/2019 Tubular adenoma rectum EGD 12/18/2021 marked villious blunting in duodenum, duodenitis, chronic inactive gastritis PAST SURGICAL HISTORY OF Right Kidney Removal for CA FAMILY HISTORY Problem Relation Age of Onset Colon Cancer No Family History ALLERGIES No Known Allergies Current Outpatient Medications Medication Sig Dispense Refill amLODIPine (NORVASC) 10 mg tablet Take 10 mg by mouth once daily. ELIQUIS 5 mg tab(s) Take 0.5 tablets by mouth twice daily. carvedilol (COREG) 25 mg tablet Take 25 mg by mouth twice daily with meals. hydrALAZINE (APRESOLINE) 50 mg tablet Take 1 tablet by mouth twice daily. pembrolizumab (KEYTRUDA) 25 mg/mL injection Inject intravenously every 3 weeks. Last tx 05.27.2023 nitroglycerin sublingual (NITROSTAT) 0.4 mg SL tablet Dissolve 0.4 mg under the tongue. rosuvastatin (CRESTOR) 40 mg tablet Take 40 mg by mouth once daily. iv contrast (will be provided with radiology test) MRI Brain Inject, intravenously, once for 1 dose.No (more content not included)... [facility] 06-09-2023 Instructions Laurie Westfall APRN.CNP - 06/09/2023 12:01 PM EDT Decrease Decadron to 1 mg daily for 1 week then, 1/2 mg daily for 1 week then 1/2 mg every other day for 1 week. documented in this encounter [facility] 06-09-2023 History of Presen t illness Narrative NEUROSURGERY FOLLOW UP OFFICE NOTE Dr. Francois Lindsay MD, FACS Date of visit: June 09, 2023 Patient Name: Mr.Larry Linda Iraheta . Date of : 1955 Current Age: [age] year old Sex: male MRN/E# [id number] Last Office Visit: 05/29/2023 CHIEF COMPLAINT: Patient presents with: Established Patient SUBJECTIVE: The patient presents as a follow up with imaging (MRI B) for evaluation. This is a 67-year-old male with a PMHx of stage IV renal cell carcinoma (left kidney-2005), left total nephrectomy, grade III adenocarcinoma of the lung (03/13/2021), s/p right lobectomy with metastasis to the brain (10/2022) who was referred by Dr. Kinsey Tao for neurosurgical evaluation. He was seen for consult on 05/29/2023 and reported a history of metastatic cancer as noted above. He reported In October 2022 he was found to have a 1.6 cm enhancing hemorrhagic mass in the left posterior parietal lobe. He then underwent SRS (SBRT) to the metastatic lesion consisting of 2400 cGy in 1 fraction at [facility]. Two months following treatment repeat MRI of the brain was completed and demonstrated an increase in the size of the enhancing mass without any new lesions noted. This was expected to be treatment related. Short-term MRI follow-ups were obtained and continue to show increase in size and vasogenic edema. On 03/19/2023 he sustained a right-sided seizure. While in the emergency department a CT of the brain without contrast was performed and continue to demonstrate extensive edema but no acute abnormalities. He was placed on oral dexamethasone. He underwent a repeat MRI of the brain with perfusion and spectroscopy on 04/16/2023. 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 His oncologist discussed the potential need to have surgical intervention and referred him for a neurosurgical evaluation. He was advised to continue on Keytruda and to continue oral Decadron. He was seen by an outside neurosurgeon on 05/20/2023 however imaging was unable to be reviewed at the time. He followed up with his heme/onc physician Dr. Angela Rodriguez on 05/27/2023 who placed a STAT referral for evaluation with a Neurosurgeon prompting his visit. At that time he denied any specific complaints or concerns. He continued on Decadron 2 mg once daily. Denied any recent seizures since March 2023 and was not taking any seizure medications. Neurologically he was intact on exam without focal deficit. MRI brain from April 2023 was reviewed and showed a mix of necrosis as well as viable tumor. Recommendation was to obtain a new MRI of the brain with perfusion sequence for comparison to prior scan and to follow-up once completed to determine plan of care. Since last visit he states he is overall doing well. He denies any new or concerning issues. He continues on Dexamethasone 2 mg daily per Rad/Onc. He presents for image review, evaluation and plan of care. Dexamethasone 1mg daily x 1 week, then 0.5 daily x 1 week then 0.5 mg every other day x 1 week SYMPTOMS: None PREVIOUS CONSERVATIVE TREATMENTS: None SURGICAL RISK: Smoker: Former Diabetic: No Anticoagulants / Antiplatelets: Eliquis Occupation: Na PREVIOUS SURGERY: SURGERY #1: SRS (SBRT) to a solitary metastatic brain tumor on 10/28/2022 at an outside hospital. 1. Left posterior parietal - 2400 cGy in 1 fraction ONCOLOGY TREATMENT TEAM: Dr. Angela Rodriguez - Hematology / Oncology Dr. Jeancarlos Tao - Radiation/ Oncologist ([place]) PAIN EVALUATION No data found in the last 1 encounters. PAST MEDICAL HISTORY Diagnosis Date Coronary artery disease Stents History of colon polyps Hypertension Skin cancer PAST SURGICAL HISTORY Procedure Laterality Date COLONOSCOPY 02/21/2019 Tubular adenoma rectum EGD 12/18/2021 marked villious blunting in duodenum, duodenitis, chronic inactive gastritis PAST SURGICAL HISTORY OF Right Kidney Removal for CA FAMILY HISTORY Problem Relation Age of Onset Colon Cancer No Family History ALLERGIES No Known Allergies Current Outpatient Medications Medication Sig Dispense Refill amLODIPine (NORVASC) 10 mg tablet Take 10 mg by mouth once daily. ELIQUIS 5 mg tab(s) Take 0.5 tablets by mouth twice daily. carvedilol (COREG) 25 mg tablet Take 25 mg by mouth twice daily with meals. hydrALAZINE (APRESOLINE) 50 mg tablet Take 1 tablet by mouth twice daily. pembrolizumab (KEYTRUDA) 25 mg/mL injection Inject intravenously every 3 weeks. Last tx 05.27.2023 nitroglycerin sublingual (NITROSTAT) 0.4 mg SL tablet Dissolve 0.4 mg under the tongue. rosuvastatin (CRESTOR) 40 mg tablet Take 40 mg by mouth once daily. iv contrast (will be provided with radiology test) MRI Brain Inject, intravenously, once for 1 dose.No IV access, insert saline lock prior to beginning of sedation, infusion, injection of imaging exam.Discontinue saline lock post exam. If Pt. has a central line or IVAD, may access for administration according to line specific nursing protocol.Once exam is complete flush line and de-access according to line specific nursing protocol in the MR contrast administration guidelines link 1 Each 0 dexAMETHasone (DECADRON) 1 mg tablet Take 1 tablet by mouth daily with breakfast for 7 days, THEN 0.5 tablets daily with breakfast for 7 days, THEN 0.5 tablets every other day for 6 days. 12 tablet 0 No current facility-administered medications for this visit. REVIEW OF SYSTEMS: Review of Systems Constitutional: Negative for chills, diaphoresis (Negative for night sweats.) and fever. HENT: Negative for ear discharge and rhinorrhea. Eyes: Negative for discharge. Respiratory: Negative for cough, shortness of breath and wheezing. Cardiovascular: Negative for chest pain, palpitations and leg swelling. Gastrointestinal: Negative for constipation, diarrhea, nausea and vomiting. Endocrine: Negative for cold intolerance and heat intolerance. Genitourinary: Negative for frequency. Negative for urinary incontinence and urinary retention. Musculoskeletal: Negative for back pain, joint swelling, myalgias and neck pain. Skin: Negative for rash (Negative for hives and skin lesions.). Allergic/Immunologic: Negative for environmental allergies and food allergies. Negative for contact allergy, seasonal allergies. Neurological: Negative for dizziness, seizures, syncope, weakness, light-headedness, numbness (Negative for numbness in extremities.) and headaches. Hematological: Does not bruise/bleed easily. Psychiatric/Behavioral: The patient is not nervous/anxious. Negative for depression. OBJECTIVE: BP 132/64 Pulse 85 Ht 5' 5 (1.65m) Wt 185 lb 6.5 oz (84.1kg) SpO2 94% BMI 30.85 kg/(m^2). PHYSICAL EXAM: Mental State : Alert, memory function unremarkable. Attention span and concentration normal for patient's age. Speech normal, no receptive or expressive speech deficit. Recent and remote memory normal. Orientation : Oriented to person, place and time. Higher Cortical Function : Intact speech and language. Spontaneous speech and comprehension normal. Fund of knowledge intact for pt level of education. Cranial Nerves : II: No visual field cut no blurring, Makes and sustains eye contact III, IV, : Normal, no double vision or drooping. Pupils equal and reactive to light. Extraocular muscles intact. No nystagmus V: Normal sensation on the face, normal jaw movements VII: No paresis on either side VIII: No gross hearing deficit IX: Good and equal shoulder shrugs XII: Tongue midline, no fasciculations Sensory: Normal Sensation in upper and lower extremities and trunk to touch and noxious stimuli. Motor: Normal muscle tone and bulk. No tremor or uncontrollable movements. No spasticity or tremor. Strength: Upper Extremities : R L Deltoid 5/5 5/5 Biceps 5/5 5/5 Triceps 5/5 5/5 Wrist Ext 5/5 5/5 Wrist Flx 5/5 5/5 Hand Int 5/5 5/5 Lower Extremities : Hip Flexors 5/5 5/5 Hip Extensors 5/5 5/5 Hip Abductors 5/5 5/5 Straight leg Neg Neg Ankle dorsiflex /5 5/5 Ankle Plantar /5 5/5 Heel Walking intact intact Toe Walking intact intact Reflexes : Biceps 2+ 2+ Triceps 2+ 2+ Wrist 2+ 2+ Patellar 2+ 2+ Achilles 2+ 2+ Harp's Neg Neg Tinel's Neg Neg Phalen's Neg Neg Cerebellar Function : Normal finger to nose. Normal rapid alternating movements. No ataxia. Negative Romberg. Gait and Station: Normal gait. No assistive device usage. Pulmonary: Lungs without cough, audible wheeze. Respirations unlabored. Cardiac: Regular rate and rhythm. No murmer, gallop or rub. IMAGING: MRI Brain WO/W IVCON / perfusion performed on 06/06/23 demonstrates: IMPRESSION: Stable size but improved halo of enhancement associated with the left parietal lesion and there is near complete resolution of increased perfusion. No evidence for new lesion or other significant interval change. ASSESSMENT/PLAN: 1. 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 - ICD9: V10.90, ICD10: Z85.89 Patient with renal cell carcinoma and a treated left parietal tumor with stereotactic radiosurgery in [place] who presented on his last visit for opinion regarding radiation necrosis or tumor recurrence. 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 He was asymptomatic but still on 2 mg daily of Decadron. I reviewed the scan of May 2023 and noted edema around the lesion and the perfusion indicated most likely this is necrosis rather than recurrent tumor. In view of that and the fact that he is asymptomatic I elected to decrease his Decadron slowly then we will check him near the end of June with another MRI scan. Should he develop any symptoms in the meantime he will call us and let us know. I did not recommend surgical intervention for this area at this time. - MRI BRAIN WO/W IVCON - IV CONTRAST (RADIOLOGY PROCEDURE) - DEXAMETHASONE 1 MG TABLET Francois Lindsay MD FOLLOW UP: Return in about 8 weeks (around 08/06/2023) for review of MRI. Please Note: This note has been partially generated using [employer], a speech recognition software program, and may contain errors including punctuation, grammar, spelling, gender, and inappropriate words or phrases that pertain to the system. documented in this encounter [facility] 06-06-2023 Note HNO ID: [id number] Author: Germania Gaines MRI Tech Service: Radiology Author Type: Weigher Bulker Type: Progress Notes Filed: 06/06/2023 11:02 AM Note Text: Radiology Service Progress Note DATE OF SERVICE: June 06, 2023 TIME: 11:01 AM PATIENT IDENTITY VERIFICATION COMPLETED USING TWO (2) STANDARD IDENTIFIERS: Name and Date of confirmed by patient verbally and Name and Date of confirmed by identification band. FALL SCREENING: Has the patient had 2 falls in the last year or 1 fall with injury or currently using an Ambulatory Assistive Device (Walker, Cane, Wheelchair, Crutches, etc.)? Yes, Patient High Risk for Falls What interventions were put in place to prevent falls during this visit? [place] Risk Wristband Applied, Instructed Patient to Call for Help if Needed, Instructed Patient to Remain Seated (Not on Exam Table) Until Exam, and Increased Observations by Caregivers PATIENT GENDER DATA: Male PATIENT RELEVANT IMPLANT DATA REVIEWED: Yes ALLERGIES: Reviewed and unchanged CONTRAST ALLERGY: NO. EXAM: MRI - CONTRAST TYPE: GROUP II PERIPHERAL IV DATA: Ambulatory: A peripheral IV was started in the Right antecubital site with a Angio cath/Butterfly: 22 gauge. RADIOLOGY DEPARTMENT: MR; Exam(s) Completed: Head: Routine Brain with Perfusion SIGNATURE: NIURKA Martin PATIENT NAME: Kenn Iraheta Sr. DATE: June 06, 2023 TIME: 11:01 AM [facility] 06-06-2023 History of Presen t illness Narrative Radiology Service Progress Note DATE OF SERVICE: June 06, 2023 TIME: 11:01 AM PATIENT IDENTITY VERIFICATION COMPLETED USING TWO (2) STANDARD IDENTIFIERS: Name and Date of confirmed by patient verbally and Name and Date of confirmed by identification band. FALL SCREENING: Has the patient had 2 falls in the last year or 1 fall with injury or currently using an Ambulatory Assistive Device (Walker, Cane, Wheelchair, Crutches, etc.)? Yes, Patient High Risk for Falls What interventions were put in place to prevent falls during this visit? [place] Risk Wristband Applied, Instructed Patient to Call for Help if Needed, Instructed Patient to Remain Seated (Not on Exam Table) Until Exam, and Increased Observations by Caregivers PATIENT GENDER DATA: Male PATIENT RELEVANT IMPLANT DATA REVIEWED: Yes ALLERGIES: Reviewed and unchanged CONTRAST ALLERGY: NO. EXAM: MRI - CONTRAST TYPE: GROUP II PERIPHERAL IV DATA: Ambulatory: A peripheral IV was started in the Right antecubital site with a Angio cath/Butterfly: 22 gauge. RADIOLOGY DEPARTMENT: MR; Exam(s) Completed: Head: Routine Brain with Perfusion SIGNATURE: NIURKA Martin PATIENT NAME: Kenn Iraheta Sr. DATE: June 06, 2023 TIME: 11:01 AM documented in this encounter [facility] 05-29-2023 Note HNO ID: [id number] Author: Francois Lindsay MD Service: ? Author Type: Physician Type: Progress Notes Filed: 05/29/2023 11:32 AM Note Text: NEUROSURGERY CONSULT NOTE Dr. Francois Robin. MD Kristina, FACS Date of visit: May 29, 2023 Patient Name: Mr.Larry Linda Iraheta Sr. Date of : 1955 Current Age: [age] year old Sex: male MRN/E# [id number] Chief Complaint: Patient presents with: New Patient Evaluation . HISTORY OF PRESENT ILLNESS : The patient is a 67 year old male with a PMHx of stage IV renal cell carcinoma (left kidney-2005), left total nephrectomy, grade III adenocarcinoma of the lung (03/13/2021), s/p right lobectomy with metastasis to the brain (10/2022) who is referred by Dr. Kinsey Tao for neurosurgical evaluation. The patient presents as a new patient with imaging (MRI B) for evaluation. He has a history of metastatic cancer as noted above. In October 2022 he was found to have a 1.6 cm enhancing hemorrhagic mass in the left posterior parietal lobe. He then underwent SRS (SBRT) to the metastatic lesion consisting of 2400 cGy in 1 fraction at [facility]. Two months following treatment repeat MRI of the brain was completed and demonstrated an increase in the size of the enhancing mass without any new lesions noted. This was expected to be treatment related. Short-term MRI follow-ups were obtained and continue to show increase in size and vasogenic edema. On 03/19/2023 he sustained a right-sided seizure. While in the emergency department a CT of the brain without contrast was performed and continue to demonstrate extensive edema but no acute abnormalities. He was placed on oral dexamethasone. He underwent a repeat MRI of the brain with perfusion and spectroscopy on 04/16/2023. 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 His oncologist discussed the potential need to have surgical intervention and referred him for a neurosurgical evaluation. He was advised to continue on Keytruda and to continue oral Decadron. He was seen by an outside neurosurgeon on 05/20/2023 however imaging was unable to be reviewed at the time. He followed up with his heme/onc physician Dr. Angela Rodriguez on 05/27/2023 who placed a STAT referral for evaluation with a Neurosurgeon prompting his visit today. He denies any specific complaints or concerns. He continues on Decadron 2 mg once daily. Denies any recent seizures since March 2023. He is not on any seizure medications. He presents for image review, evaluation and plan of care. Symptoms: generalized weakness PREVIOUS CONSERVATIVE TREATMENTS: None PREVIOUS SURGERY: None PAIN EVALUATION No data found in the last 1 encounters. PAST MEDICAL HISTORY Diagnosis Date Coronary artery disease Stents History of colon polyps Hypertension Skin cancer PAST SURGICAL HISTORY Procedure Laterality Date COLONOSCOPY 02/21/2019 Tubular adenoma rectum EGD 12/18/2021 marked villious blunting in duodenum, duodenitis, chronic inactive gastritis PAST SURGICAL HISTORY OF Right Kidney Removal for CA FAMILY HISTORY Problem Relation Age of Onset Colon Cancer No Family History ALLERGIES No Known Allergies Current Outpatient Medications Medication Sig Dispense Refill pantoprazole DR (PROTONIX) 40 mg tablet Take 1 tablet by mouth every 12 hours 6am/6pm. dexAMETHasone (DECADRON) 4 mg tablet Take 0.5 tablets by mouth once daily. ferrous sulfate 325 mg (65 mg iron) tablet Take 1 tablet by mouth once daily. albuterol HFA (PROAIR HFA) 90 mcg/actuation inhaler Inhale 2 Puffs as instructed every 4 hours as needed for wheezing/shortness of breath. sucralfate (CARAFATE) 1 gram tablet Take 1 tablet by mouth four times daily. ELIQUIS 5 mg tab(s) Take 0.5 tablets by mouth twice daily. ipratropium (ATROVENT) 0.02 % nebulizer solution Inhale 0.2 mg as instructed as needed. miSOPROStol (CYTOTEC) 200 mcg tablet Take 200 mcg by mouth three times daily with meals. metFORMIN (GLUCOPHAGE) 500 mg tablet Take 1 tablet by mouth every 12 hours 6am/6pm. carvedilol (COREG) 25 mg tablet Take 25 mg by mouth twice daily with meals. hydrALAZINE (APRESOLINE) 50 mg tablet Take 1 tablet by mouth twice daily. lidocaine-prilocaine (EMLA) 2.5-2.5 % cream Apply to affected area. pembrolizumab (KEYTRUDA) 25 mg/mL injection Inject intravenously every 3 weeks. Last tx 05.27.2023 nitroglycerin sublingual (NITROSTAT) 0.4 mg SL tablet Dissolve 0.4 mg under the tongue. rosuvastatin (CRESTOR) 40 mg tablet Take 40 mg by mouth once daily. iv contrast (will be provided with radiology test) MRI Brain Inject, intravenously, once for 1 dose.No IV access, insert saline lock prior to beginning of sedation, infusion, injection of imaging exam.Discontinue saline lock post exam. If Pt. has a central line or IVAD, may access for administration according to line specific nursing protocol.Once exam is complete (more content not included)... [facility] 05-27-2023 Miscellaneous Notes Received referral from Dr. Jeancarlos Tao at [facility]. Requesting STAT consult for brain mets. Called patient to discuss scheduling, but had to leave a voicemail. Left my direct contact info and asked that he return my call at his earliest convenience. documented in this encounter [facility] 05-25-2023 Telephone encounter Note Marichuy called back. Re-read voice mail from Sharmin of Dr Baron's note. Marichuy will call back with any other questions or concerns. [facility] 05-25-2023 Miscellaneous Notes Marichuy called back. Re-read voice mail from Sharmin of Dr Baron's note. Marichuy will call back with any other questions or concerns. LM on VM for Marichuy. Dr. Baron reviewed the MRI. 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 The patient can follow up with oncology as recommended by Dr. Little. LM on Marichuy's VM letting her know that we did receive the mri in pacs. Left message on voicemail asking Marichuy to return my call and left the phone number that I can be reached. Office received a voicemail from Marichuy at the [facility] stating that they received a phone call from the patient stating that he saw Dr. Little and his records had not been transferred over for review for his appointment at our office. There is an MRI Brain report from [facility] scanned into media and the fax cover sheet stated that the most recent MRI completed at [facility] was pushed through to PACS. Please verify that records were received and images available from PACS and call Marichuy to confirm. Marichuy can be reached at [phone], option 6 documented in this encounter [facility] 05-22-2023 Telephone encounter Note LM on VM for Marichuy. [facility] 05-22-2023 Miscellaneous Notes LM on VM for Marichuy. Dr. Baron reviewed the MRI. 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 The patient can follow up with oncology as recommended by Dr. Little. LM on Marichuy's VM letting her know that we did receive the mri in pacs. Left message on voicemail asking Marichuy to return my call and left the phone number that I can be reached. Office received a voicemail from Marichuy at the [facility] stating that they received a phone call from the patient stating that he saw Dr. Littel and his records had not been transferred over for review for his appointment at our office. There is an MRI Brain report from [facility] scanned into media and the fax cover sheet stated that the most recent MRI completed at [facility] was pushed through to PACS. Please verify that records were received and images available from PACS and call Marichuy to confirm. Marichuy can be reached at [phone], option 6 documented in this encounter [facility] 05-22-[address] Baron reviewed the MRI. 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 The patient can follow up with oncology as recommended by Dr. Little. [employer] Work Phone: 05-22-2023 Telephone encounter Note LM on Marichuy's VM letting her know that we did receive the mri in pacs. [email or web address] 05-22-2023 Telephone encounter Note Left message on voicemail asking Marichuy to return my call and left the phone number that I can be reached. [facility] 05-22-2023 Telephone encounter Note Office received a voicemail from Marichuy at the [facility] stating that they received a phone call from the patient stating that he saw Dr. Little and his records had not been transferred over for review for his appointment at our office. There is an MRI Brain report from [facility] scanned into media and the fax cover sheet stated that the most recent MRI completed at [facility] was pushed through to PACS. Please verify that records were received and images available from PACS and call Marichuy to confirm. Marichuy can be reached at [phone], option 6 [facility] 05-20-2023 History of Presen t illness Narrative Patient Name: Kenn Iraheta Patient : 1955 PCP: Jacob Jennings DO History of Present Ilness: 67 y.o. presents with report of known brain mass. He reports that he has renal cancer and is in chemo treatment for that. He reports that he was diagnosed a few years ago and underwent brain radiation. He states he then had a seizure a few months ago. He has undergone MRI spec at [facility]. 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 Chief Complaint Patient presents with New Patient Brain lesion Past Medical History: Past Medical History: Diagnosis Date Adenocarcinoma of right lung (HCC) 02/2021 Aortic stenosis, mild 06/2002 Bleeding ulcer Brain lesion CAD (coronary artery disease) [address] Mcguire, neg stress test 08/26 at [place] COPD (chronic obstructive pulmonary disease) (HCC) per cxr (smoker) COVID-19 virus infection 10/2021 DDD (degenerative disc disease), cervical NSAID therapy Essential hypertension 1993 Ex-smoker for less than 1 year 03/2021 Family history of diabetes mellitus sister Gastric polyps 12/[address] Ramírez, small HH also H/O colonoscopy 02/2019 [facility]- small polyp- due 2023 History of colon polyps 2000 [facility] History of renal carcinoma 07/[address] Tariq History of SCC (squamous cell carcinoma) of skin 2011 scalp - [facility] Hypercholesterolemia LDL PAD (peripheral artery disease) (HCC) 07/2019 Rt worse than Lt, pt defering angiogram rec per Dr. 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 Cuevas, [facility], [place] oncologist Past Surgical History: Past Surgical History: Procedure Laterality Date COLONOSCOPY 02/2019 [facility]- small polyp- due 2023 COLONOSCOPY 2013 [facility] CORONARY ANGIOPLASTY WITH STENT PLACEMENT 2003 LUNG REMOVAL, PARTIAL Right 03/12/2021 VATS thoractomy NEPHRECTOMY Left 2005 [facility] OTHER SURGICAL HISTORY 02/20/2021 EBUS/ENB SKIN CANCER DESTRUCTION 2012 squamous cell per [facility] UPPER GASTROINTESTINAL ENDOSCOPY 12/2021 Dr. Ramírez- mild gastritis with small HH Home Medications: Prior to Admission medications Medication Sig Start Date End Date Taking? Authorizing Provider amLODIPine (Norvasc) 10 MG tablet Take 1 tablet (10 mg) by mouth daily for 90 doses. 12/31/22 05/20/23 Yes Jacob Jennings DO carvedilol (Coreg) 25 MG tablet Take 1 tablet (25 mg) by mouth 2 times daily for 180 doses. 12/31/22 05/20/23 Yes Jacob Jennings DO dexAMETHasone (Decadron) 4 MG tablet Take 4 mg by mouth 2 times daily. 10/23/22 Yes Historical Provider, hydrALAZINE (Apresoline) 50 MG tablet Take 1 tablet (50 mg) by mouth 2 times daily. 12/31/22 06/29/23 Yes Jacob Jennings DO nitroglycerin (Nitrostat) 0.[address] 0.4 mg under the tongue. 11/26/15 12/19/25 Yes Historical Provider, omeprazole (PriLOSEC) [address] capsule Take 20 mg by mouth. 10/22/22 Yes Historical Provider, pembrolizumab (Keytruda) 100 MG/4ML chemo injection Infuse 200 mg into a venous catheter. 10/22/22 Yes Historical Provider, rosuvastatin (Crestor) 40 MG tablet Take 1 tablet (40 mg) by mouth daily for 90 doses. 12/31/22 05/20/23 Yes Jacob Jennings DO triamcinolone (Kenalog) 0.1 % cream 07/01/22 Yes Historical Provider, aspirin 81 MG EC tablet Take 81 mg by mouth daily. Historical Provider, Allergies: Patient has no known allergies. Social History: TOBACCO: reports that he quit smoking about 2 years ago. His smoking use included cigarettes. He started smoking about 42 years ago. He smoked an average of 1.5 packs per day. He has never used smokeless tobacco. ETOH: reports current alcohol use of about 14.0 standard drinks of alcohol per week. RECREATIONAL DRUG USE: Social History Substance and Sexual Activity Drug Use Never Family History: Family History Problem Relation Name Age of Onset Coronary artery disease Mother CABG Coronary artery disease Sister Amairani CABG Stroke Mother age 77 Lung cancer Mother No Known Problems Sister No Known Problems Brother Kip No Known Problems Sister No Known Problems Sister Diabetes Sister Amairani Coronary artery disease Father age 50 [place] - smoker Coronary artery disease Brother Kaiden age 47 [place] Review of Systems Constitutional: Negative. HENT: Negative. Eyes: Negative. Respiratory: Negative. Cardiovascular: Negative. Gastrointestinal: Negative. Endocrine: Negative. Genitourinary: Negative. Musculoskeletal: Negative. Skin: Negative. Neurological: Negative. Psychiatric/Behavioral: Negative. Physical Examination: Vitals: 05/20/23 1402 BP: 119/60 Pulse: 87 Temp: 36.8 C (98.3 F) Physical Exam Constitutional: Appearance: Normal appearance. HENT: Head: Normocephalic. Eyes: Extraocular Movements: Extraocular movements intact. Pupils: Pupils are equal, round, and reactive to light. Cardiovascular: Rate and Rhythm: Normal rate. Pulmonary: Effort: Pulmonary effort is normal. Abdominal: Palpations: Abdomen is soft. Musculoskeletal: General: Normal range of motion. Cervical back: Normal range of motion and neck supple. Skin: General: Skin is warm and dry. Neurological: General: No focal deficit present. Mental Status: He is alert and oriented to person, place, and time. Cranial Nerves: Cranial nerves 2-12 are intact. Motor: Motor strength is normal. Gait: Gait is intact. Deep Tendon Reflexes: Reflex Scores: Tricep reflexes are 2+ on the right side and 2+ on the left side. Bicep reflexes are 2+ on the right side and 2+ on the left side. Brachioradialis reflexes are 2+ on the right side and 2+ on the left side. Patellar reflexes are 2+ on the right side and 2+ on the left side. Achilles reflexes are 2+ on the right side and 2+ on the left side. Psychiatric: Mood and Affect: Mood normal. Judgment: Judgment normal. Neurologic Exam Mental Status Oriented to person, place, and time. Cranial Nerves Cranial nerves II through XII intact. CN III, IV, Pupils are equal, round, and reactive to light. Motor Exam Muscle bulk: normal Overall muscle tone: normal Strength Strength 5/5 throughout. Sensory Exam Light touch normal. Gait, Coordination, and Reflexes Gait Gait: normal Reflexes Right brachioradialis: 2+ Left brachioradialis: 2+ Right biceps: 2+ Left biceps: 2+ Right triceps: 2+ Left triceps: 2+ Right patellar: 2+ Left patellar: 2+ Right achilles: 2+ Left achilles: 2+ Right supervisor continuous weld pipe mill: 2+ Left supervisor continuous weld pipe mill: 2+ Results Labs: Last 24hrs No results found for this or any previous visit (from the past 24 hour(s)). Radiology Personal review: None available for review There is a CT scan of the brain from March 2023 that described vasogenic edema in the occipital lobes ASSESSMENT / PLAN : History of brain metastasis and radiosurgery for them. This was approximately 6 to 7 months ago. He is in the main timeframe for radiation necrosis. Without having any imaging to review it is difficult to know if this is exactly what it is, if it is radiation necrosis it is very unlikely that he needs surgical intervention. Recommend treatment with steroids through his radiation oncologist. If he obtains images for us to review on a disc, we would happy to do so in the future. Diagnosis Plan 1. PRES (posterior reversible encephalopathy syndrome) documented in this encounter [facility] 04-16-2023 Note HNO ID: [id number] Author: Kristal Blakely RN Service: ? Author Type: Registered Nurse Type: Progress Notes Filed: 04/16/2023 10:38 AM Note Text: Radiology Service Progress Note DATE OF SERVICE: April 16, 2023 TIME: 10:25 AM PATIENT WEIGHT: 200LBS PATIENT IDENTITY VERIFICATION COMPLETED USING TWO (2) STANDARD IDENTIFIERS: Name and Date of confirmed by patient verbally and Name and Date of confirmed by identification band. FALL SCREENING: Has the patient had 2 falls in the last year or 1 fall with injury or currently using an Ambulatory Assistive Device (Walker, Cane, Wheelchair, Crutches, etc.)? Yes, Patient High Risk for Falls What interventions were put in place to prevent falls during this visit? Non-Skid Socks Used, Yellow [place] Risk Wristband Applied, Instructed Patient to Call for Help if Needed, Offered Assistance with Transfers/Clothing, and Instructed Patient to Remain Seated (Not on Exam Table) Until Exam PATIENT GENDER DATA: Male ALLERGIES: Reviewed and unchanged CONTRAST ALLERGY: No EXAM: MRI - CONTRAST TYPE: GROUP II IV SITE: Ambulatory: A power injectable Mediport was accessed in the Right chest with a 1 inch 20 gauge needle. Blood Return, Flushed easily with normal saline, Good Blood Return Post Injection, and No Complications IV SITE APPEARANCE: Clean,Dry and Intact SIGNATURE: Kristal Blakely RN PATIENT NAME: Kenn Iraheta Sr. DATE: April 16, 2023 TIME: 10:25 AM 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 ID Energy Dose/Fx (cGy) #Fx Dose Correction (cGy) Total Dose (cGy) Start Date End Date Elapsed Days IMRT Brain SRS 10X 2,400 1 / 1 0 2,400 10/28/2022 10/28/2022 0 Tolerance: [No acute toxicity] Response: [To be assessed to follow-up] Remarks: [Follow-up 1 month] Thank you for the opportunity to care for your patient. Digitally signed by: Kinsey Horton MD 11/11/2022 7:00:28 AM cc: JEANCARLOS TAO DO Course: C1 Brain Treatment Site: IMRT Ref. ID: Brain SRS Energy: 10X Dose/Fx (cGy): 2,400 #Fx: Dose Correction (cGy): 0 Total Dose (cGy): 2,400 Start Date: 10/28/2022 End Date: 10/28/2022 Elapsed Days: 0 [facility] 10-28-2022 Note RADIATION ONCOLOGY PROCEDURE NOTE NAME: Kenn Iraheta U#: [id number] : 1955 DATE: 10/28/2022 DIAGNOSIS: C79.31 - Secondary malignant neoplasm of brain SUMMARY: RADIATION ONCOLOGIST: Kinsey Horton PROCEDURE: SRT/SBRT DESCRIPTION OF PROCEDURE: The patient arrived for the 1 fraction of the planned 1 fraction SRT/SBRT treatment course to the Brain. The patient was placed in the treatment position. Cone beam CT scanning/KV imaging were acquired for target localization. Adjustments were made to ensure the isocenter agreed with the computerized stereotactic plan. The treatment was initiated using 4 RapidArcs/IMRT post with a sliding window technique to the appropriate tumor volume per the physician s prescription. The physician and medical care administrator were present throughout the set-up, verification, and treatment delivery to oversee the procedure and ensure that all parameters agreed with the computerized plan for the first fraction. The imaging was approved prior to treatment. The patient was seen immediately following the first fraction and tolerated the treatment well. The total dose delivered was 2,400cGy of a planned 2,400cGy. Digitally signed by Kinsey Horton MD 10/28/2022 1:38:46 PM [facility] 05-17-2021 Hospital Discharg Julissa Lama RN - 05/17/2021 5:48 PM EDT Continue daily activity as tolerated. Julissa Krishna RN - 05/17/2021 5:48 PM EDT Good nutrition is important when healing from an illness, injury, or surgery. Follow any nutrition recommendations given to you during your hospital stay. If you were given an oral nutrition supplement while in the hospital, continue to take this supplement at home. You can take it with meals, in-between meals, and/or before bedtime. These supplements can be purchased at most local grocery stores, pharmacies, and [facility]-stores. If you have any questions about your diet or nutrition, call the hospital and ask for the dietitian. Mary Anne Sanford RN - 05/15/2021 Refer to the Understanding Stroke Booklet given to you, written material provided to patient/family, addressing all signs & symptoms of a stroke, which are: sudden numbness or weakness of the face, arm or leg, especially on one side of the body sudden confusion sudden difficulty speaking or understanding sudden trouble seeing in one or both eyes sudden trouble walking,dizziness, loss of balance or coordination sudden severe headache with no known cause syncope or temporary loss of consciousness seizure Explained the need to call EMS (911) immediately if signs & symptoms occur. Discussed medications that the patient is taking, will review medications again prior to discharge, risk factors, and the need for follow-up with a physician/ART SUPERVISOR/PA after discharge. Discussed the patient s personal risk factors for Stroke /TIA with patient/family, and ways to reduce the risk for a recurrent stroke. Patient's personal risk factors which were identified are: [x] High blood pressure [x] High cholesterol [] Atrial fibrillation [] Diabetes [x] Smoking [x] Overweight [x] Lack of Exercise [x] Sleep apnea [x] Prior heart disease or heart attack [x] Excessive alcohol use [] Use of illicit drugs [] Personal history of previous TIA or stroke [] Family history of stroke or heart disease [] Carotid stenosis [] Heart failure [] Patent Foramen Ovale [] Migraine [] Hormone replacement therapy [] Current (up to six weeks post ) [] Depression [] Sickle Cell [x] Renal insufficiency - chronic [] None Refer to Understanding Stroke Booklet. Advised patient that risk for stroke/TIA can be reduced by modifying/controlling risk factors. Patient advised to take medications as prescribed, which will be detailed in the discharge instructions, and to not stop taking them without consulting a physician. In addition, pt. advised to maintain a healthy diet, exercise regularly and to not smoke. documented in this encounter [employer] Work Phone: 05-17-2021 Note [facility] Discharge Summary and Transition Note Kenn Iraheta Sr. : 1955 ADMIT DATE: 05/15/2021 DISCHARGE DATE: 05/17/2021 PRIMARY CARE PHYSICIAN: Jacob Jennings DO VISIT STATUS: Admission CODE STATUS: Full Code DISCHARGE DIAGNOSES: Active Problems: CAD (coronary artery disease) Hypercholesterolemia COPD (chronic obstructive pulmonary disease) (HCC) History of renal carcinoma Essential hypertension PAD (peripheral artery disease) (HCC) Adenocarcinoma of left lung (HCC) Ataxia Encephalopathy Resolved Problems: * No resolved hospital problems. * HOSPITAL COURSE: 65yo M with PMHx HTN, HLP, lung adenocarcinoma (s/p R-VATS, R-lobectomy), Stage IV RCC. Presented to [facility] ER 05/15 with complaints of disorientation with loss of right-vision. He was able to ambulate but was confused and with unsteady gait. Denied aphasia or speech difficulties or focal neurologic concerns. In ER, SBP 190-[address] Head and CTA w/perfusion studies. While in ER, he experienced seizure-like activity and was given Keppra x1. During admission, blood pressure was slowly brought down with home medications and prn. It remained elevated however, and after medication review, this was thought to be due to his oral chemo agent (Inlyta). This was not given during hospital stay and in fact, was held altogether per patient's 's conversation with oncologist ([place]). Mr. Iraheta's mental status improved drastically and he was ambulatory and conversant. # PRES - MRI read mentions additional signal abnormality 2/2 PRES - clinically, this also fits - slow BP management, dc Inlyta ( d/w oncology) ? # Encephalopathy with associated gait abnormality - significant improvement ?- initially stroke workup but low suspicion for ischemic event ?- ?Hypertensive encephalopathy ?- confusion resolved ?- MRI Brain W/WO, appreciate neuro # Hypertensive urgency v emergency # Hypertension ?- home meds: coreg, enalapril ?- restart home meds - using only prn's, goal ~160 - inylta (chemo agent) with 40% risk of HTN ? # Seizure activity - occurred while in ER, in setting of accelerated BP - ?dropped too quickly by extra labetalol dose (see vitals/MAR) ? # Right-pleural effusion - noted on CTA 05/17/21 done in [place] (see Care everywhere) ? # Troponinemia ?- suspect from accelerated BP ?- EKG with mild ST dep -->?trend trop, tele and EKG # CAD # Hyperlipidemia ?- home meds: cilostazol, enalapril, aspirin, statin ? # Lung adenocarcinoma, right (2020) # COPD ?- s/p R-VATS, RL lobectomy ?- on Inlyta (oral chemo) and Keytruda --> hold ?- [facility] [place] [facility], Dr. Rodriguez ? # Stage IV renal cell cancer (R-kidney mass) ?- mets to lung ? # Hyperkalemia ?- recheck after IVF ? # ETOH abuse PROCEDURES: none CONSULTANTS: Neurology DISCHARGE MEDICATIONS: Significant Medication Changes: - STOP Kenn Mora Sr. Home Medication Instructions LUIS:[id number] Printed on:05/17/21 1106 Medication Information aspirin 81 MG EC tablet Take 81 mg by mouth daily carvedilol (COREG) 25 MG tablet Take 1 tablet by mouth 2 times daily cilostazol (PLETAL) 50 MG tablet Take 1 tablet by mouth 2 times daily enalapril (VASOTEC) 20 MG tablet Inc to 20 mg BID gabapentin (NEURONTIN) 300 MG capsule Take 1 capsule by mouth 2 times daily for 14 days. nitroGLYCERIN (NITROSTAT) 0.[address] 1 tablet under the tongue every 5 minutes as needed for Chest pain 1 tablet under the tongue (allow to dissolve) every 5 minutes (not to exceed 3) rosuvastatin (CRESTOR) 40 MG tablet Take 1 tablet by mouth daily DIET: cardiac ACTIVITY: resume regular activity SIGNIFICANT DIAGNOSTIC STUDIES: CT Head CTA, CT H/N MRI Echocardiogram COMPLEXITY OF FOLLOW UP: [] Moderate Complexity: follow up within 7-14 calendar days (68289) [x] Severe Complexity: follow up within 7 calendar days (68146) FOLLOW UP TESTING, PENDING RESULTS OR REFERRALS AT TRANSITIONAL CARE VISIT: [x] Yes - BP check - consider secondary hypertension workup [] No DISPOSITION: Home FACILITY/HOME CARE AGENCY NAME: Follow up with Jacob Jennings DO to be scheduled in 1 week Notification (telephone encounter) to PCP initiated: [x] Yes [] No INSTRUCTIONS TO MA/SW: Please call patient on day after discharge (must document patient contacted within 2 business days of discharge). FOLLOW UP QUESTIONS FOR MA/SW: 1. Did you get medications filled and taking them as instructed from discharge? 2. Are you following your discharge instructions from your hospital stay? 3. Please confirm patient is scheduled for a follow up appointment within the above time frame. DI (more content not included)... [employer] 05-17-2021 History of Presen t illness Narrative Physical Therapy Facility/Department: [facility] Initial Assessment NAME: Kenn Iraheta . : 1955 Date of Service: 05/17/2021 Discharge Recommendations: Home with assist PRN Assessment Assessment: Pt admitted for Encephalopathy with associated gait abnormality and hypertension. 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 Pt was normally independent. Pt is steady on feet this date. Pt able to balance with different tasks and appears to be at baseline. Recommend home with assist PRN Prognosis: Good Decision Making: Low Complexity PT Education: Goals;PT Role;Plan of Care REQUIRES PT FOLLOW UP: No Patient Diagnosis(es): The primary encounter diagnosis was Ataxia. Diagnoses of Hypertension, unspecified type, Encephalopathy, Vision loss, Aphasia, and Seizure (HCC) were also pertinent to this visit. has a past medical history of Adenocarcinoma of right lung (HCC), CAD (coronary artery disease), COPD (chronic obstructive pulmonary disease) (HCC), DDD (degenerative disc disease), cervical, Essential hypertension, Family history of diabetes mellitus, H/O colonoscopy, History of colon polyps, History of renal carcinoma, History of SCC (squamous cell carcinoma) of skin, Hypercholesterolemia, Mass of right lung, PAD (peripheral artery disease) (HCC), Prostate cancer screening, Right carotid bruit, Right inguinal hernia, and Smoker. has a past surgical history that includes Colonoscopy (2013); total nephrectomy (Left, 2005); Skin cancer destruction (2011); Coronary angioplasty with stent (2002); Colonoscopy (02/2019); other surgical history (02/20/2021); other surgical history (03/12/2021); and Lung removal, partial (Right, 03/12/2021). Restrictions Restrictions/Precautions Restrictions/Precautions: Modified Diet, Fall Risk (Adult diet; regular; low sodium) Required Braces or Orthoses?: No Position Activity Restriction Other position/activity restrictions: up with assist Vision/Hearing Vision: Impaired Vision Exceptions: Wears glasses at all times Hearing: Within functional limits Subjective General Chart Reviewed: Yes Patient assessed for rehabilitation services?: Yes Additional Pertinent Hx: PT admitted for disoriention, ataxia, vision loss. PMH of kidney cancer Family / Caregiver Present: No Follows Commands: Within Functional Limits Subjective Subjective: Pt agreeable for therapy. Pt states I feel like I'm back to my normal self again , He states I think it was my kidney medication causing all of these issues Pain Screening Patient Currently in Pain: Denies Vital Signs Patient Currently in Pain: Denies Orientation Orientation Overall Orientation Status: Within Normal Limits Social/Functional History Social/Functional History Lives With: Spouse, Son (son works, is at home if needed) Type of Home: House Home Layout: Bed/Bath upstairs, Multi-level Home Access: Stairs to enter with rails Entrance Stairs - Number of Steps: 5 steps down from garage, 5 steps from garage to get into house Entrance Stairs - Rails: Right Bathroom Shower/Tub: Tub/Shower unit Bathroom Toilet: Standard Bathroom Accessibility: Accessible Home Equipment: Oxygen (d/c with o2 last admit nolonger needs) Receives Help From: Family ADL Assistance: Independent Homemaking Assistance: Independent Homemaking Responsibilities: Yes Ambulation Assistance: Independent Transfer Assistance: Independent Active Sample Patternmaker: Yes Mode of Transportation: Car 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 reported is able to assist PRN and son lives at home as well. Cognition Objective Observation/Palpation Posture: Good Observation: Wearing normal street clothes AROM RLE (degrees) RLE AROM: WFL AROM LLE (degrees) LLE AROM : WFL AROM RUE (degrees) RUE AROM : WFL AROM LUE (degrees) LUE AROM : WFL Strength Other Other: All BUE/BLE MMT is 5/5 Tone RLE RLE Tone: Normotonic Tone LLE LLE Tone: Normotonic Motor Control Gross Motor?: WNL Coordination Rapid Alternating Movements: Normal Finger to Nose: Normal Heel to Shea: Normal Sensation Overall Sensation Status: (Denies N/Ting; able to feel light touch on BLE/BUE) Transfers Sit to Stand: Independent Stand to sit: Independent Ambulation Ambulation?: Yes Ambulation 1 Surface: level tile Device: No Device Assistance: Independent Quality of Gait: no loss of balance Gait Deviations: None Comments: Pt able to start/stop when prompted, able to turn left/right/up/down with head without deviation or balance loss. Pt able to pick pen off floor without issues. Stairs/Curb Stairs?: Yes Stairs # Steps : 4 Rails: Right ascending Device: No Device Assistance: Modified independent Balance Sitting - Static: Good Sitting - Dynamic: Good Standing - Static: Good Standing - Dynamic: Good Comments: Pt able to turn clockwise and counterclockwise independently. Pt able to perform SLS for 4 seconds on each leg Plan Plan Times per week: discharge Safety Devices Type of devices: Left in chair, Call light within reach, All fall risk precautions in place, Patient at risk for falls, Gait belt G-Code OutComes Score -[facility] Score -[facility] Inpatient Mobility Raw Score : 24 (05/17/211056) [facility] Inpatient T-Scale Score : 61.14 (05/17/211056) Mobility Inpatient [facility] 0-100% Score: 0 (05/17/211056) Mobility Inpatient [facility] G-Code Modifier : CH (05/17/211056) Goals Short term goals Time Frame for Short term goals: discharge Patient Goals Patient goals : to get home Therapy Time Individual Concurrent Group Co-treatment Time In 1032 Time Out 1042 Minutes 10 Transfer Plan of care over to [facility] Physical Therapy staff. This PT wore PPE as per hospital policy Pt wore mask No Bed/chair alarm on prior to session and no alarm after session Kinsey Lucio PT Nutrition rescreen completed. Chart reviewed. Patient to be monitored and followed by the diet audiology technician. HEIDI Dia Speech Language Pathology Patient passed the Nursing Swallowing Screening and is on a Regular diet, Cardiac: Low fat, Low cholesterol. High Fiber, KIMMIE with Thin liquids. Completed speech orders as per stroke protocol. Ginette Hurtado MA, CCC-GARMENT FINISHER 05/17/2021 Images from the original note were not included. [facility] Progress Note Kenn Iraheta Sr. : 1955(65 y.o.) Date: 05/17/21 Subjective: HPI The patient complains of :encephalopathy 65yo M with PMHx HTN, HLP, lung adenocarcinoma (s/p R-VATS, R-lobectomy), Stage IV RCC. Presented to [facility] ER 05/15 with complaints of disorientation with loss of right-vision. He was able to ambulate but was confused and with unsteady gait. Denied aphasia or speech difficulties or focal neurologic concerns. In ER, SBP 190-[address] Head and CTA w/perfusion studies. He experienced seizure-like activity and was given Keppra x1. This AM, afebrile. SBP 165-198 No labs this AM. Coreg started last night, vasotec held. This AM, sitting up in chair says he feels really good. Confirms he did not know where he was at admission and laughs when we talk about his year finding difficulty. Able to list off years and presidents and his age. Eager to go home. Understands options. Plans to see Dick on Thursday for BP check. Scheduled Meds: carvedilol 25 mg Oral BID cilostazol 50 mg Oral BID enalapril 20 mg Oral BID sodium chloride flush 5-40 mL Intravenous 2 times per day levETIRAcetam 1,000 mg Oral BID aspirin 81 mg Oral Daily Or aspirin 300 mg Rectal Daily enoxaparin 40 mg Subcutaneous Daily rosuvastatin 40 mg Oral Nightly Continuous Infusions: sodium chloride PRN Meds:sodium chloride, acetaminophen OR acetaminophen, ondansetron, polyethylene glycol, sodium chloride flush, labetalol, hydrALAZINE, perflutren lipid microspheres, sodium chloride flush Review of Systems Constitutional: Negative for chills and fever. Gastrointestinal: Negative for nausea and vomiting. Neurological: Positive for headaches. Negative for dizziness, speech difficulty, weakness and light-headedness. Interval Pertinent History: Social History Tobacco Use Smoking status: Former Smoker Packs/day: 1.50 Years: 40.00 Pack years: 60.00 Types: Cigarettes Start date: 02/01/1981 Smokeless tobacco: Never Used Substance Use Topics Alcohol use: Yes Alcohol/week: 14.0 standard drinks Types: 14 Cans of beer per week Comment: couple beers a day Objective: Patient Vitals for the past 24 hrs: BP Temp Temp src Pulse Resp SpO2 05/17/21 0511 (!) 169/79 Temporal 76 05/17/21 0430 (!) 186/80 Temporal 76 05/17/21 0417 (!) 198/86 97.4 F (36.3 C) Temporal 78 18 94 % 05/16/21 2324 (!) 165/71 98.9 F (37.2 C) Temporal 78 18 92 % 05/16/21 1943 (!) 175/82 98.8 F (37.1 C) Temporal 86 20 96 % 05/16/21 1802 (!) 158/75 Temporal 87 05/16/21 1436 (!) 176/79 98.1 F (36.7 C) Temporal 74 17 92 % 05/16/21 1054 (!) 144/76 98 F (36.7 C) Temporal 72 17 92 % 05/16/21 0720 (!) 162/69 97.6 F (36.4 C) Temporal 72 17 93 % Average, Min, and Max for last 24 hours Vitals: TEMPERATURE: Temp Av.1 F (36.7 C) Min: 97.4 F (36.3 C) Max: 98.9 F (37.2 C) RESPIRATIONS RANGE: Resp Av.8 Min: 17 Max: 20 PULSE RANGE: Pulse Av.7 Min: 72 Max: 87 BLOOD PRESSURE RANGE: Systolic (24hrs), Av , Min:144 , Max:198 ; Diastolic (24hrs), Av, Min:69, Max:86 PULSE OXIMETRY RANGE: SpO2 Av.2 % Min: 92 % Max: 96 % No intake/output data recorded. Physical Exam Vitals and nursing note reviewed. Constitutional: Appearance: Normal appearance. He is not ill-appearing or diaphoretic. HENT: Head: Normocephalic and atraumatic. Nose: Comments: Wearing O2 Mouth/Throat: Mouth: Mucous membranes are moist. Eyes: General: No scleral icterus. Skin: General: Skin is warm and dry. Neurological: Mental Status: He is alert and oriented to person, place, and time. Comments: Strength and sensation intact Lab Results Component Value Date WBC 6.1 05/16/2021 HGB 12.5 (L) 05/16/2021 HCT 36.5 (L) 05/16/2021 MCV 80.0 05/16/2021 PLT 136 (L) 05/16/2021 Lab Results Component Value Date NA 138 05/16/2021 K 3.3 05/16/2021 CL 110 05/16/2021 CO2 18 05/16/2021 BUN 11 05/16/2021 CREATININE 0.79 05/16/2021 GLUCOSE 97 05/16/2021 CALCIUM 8.3 05/16/2021 Lab Results Component Value Date LABA1C 5.5 05/17/2021 Additional results of the last 24 hours have been reviewed. Assessment and Plan: Active Problems: CAD (coronary artery disease) Hypercholesterolemia COPD (chronic obstructive pulmonary disease) (HCC) History of renal carcinoma Essential hypertension PAD (peripheral artery disease) (HCC) Adenocarcinoma of left lung (HCC) Ataxia Encephalopathy Resolved Problems: * No resolved hospital problems. * Assessment/Plan: # PRES - MRI read mentions additional signal abnormality 2/2 PRES - clinically, this also fits - slow BP management, dc Inlyta ( d/w oncology) # Encephalopathy with associated gait abnormality - significant improvement - initially stroke workup but low suspicion for ischemic event - ?Hypertensive encephalopathy - confusion resolved - MRI Brain W/WO, appreciate neuro # Hypertensive urgency v emergency # Hypertension - home meds: coreg, enalapril - restart home meds - using only prn's, goal ~160 - inylta (chemo agent) with 40% risk of HTN # Seizure activity - occurred while in ER, in setting of accelerated BP - ?dropped too quickly by extra labetalol dose (see vitals/MAR) # Right-pleural effusion - noted on CTA 05/17/21 done in [place] (see Care everywhere) # Troponinemia - suspect from accelerated BP - EKG with mild ST dep --> trend trop, tele and EKG # CAD # Hyperlipidemia - home meds: cilostazol, enalapril, aspirin, statin # Lung adenocarcinoma, right (2020) # COPD - s/p R-VATS, RL lobectomy - on Inlyta (oral chemo) and Keytruda --> hold - [facility] [place] [facility], Dr. Rodriguez # Stage IV renal cell cancer (R-kidney mass) - mets to lung # Hyperkalemia - recheck after IVF # ETOH abuse DVT Prophylaxis: lovenox 40 q 24hr -creatinine clearance >30 Disposition: watch BP with restarting home meds --> potential dc today I spent over 51% of total time providing counseling or incoordination of care: 35 minutes patient and family updated, I personally examined the patient and I personally reviewed chart, data, labs radiology reports D/w and patient's (Karen) at length 6AM-6PM please page: 6PM-6AM please page: [facility] [facility] Occupational Therapy Occupational Therapy Initial Assessment/Discharge Date: 05/16/2021 Patient Name: Kenn Iraheta Sr. : 1955 Date of Service: 05/16/2021 Discharge Recommendations: Home with assist PRN Assessment Performance deficits / Impairments: Decreased strength;Decreased high-level IADLs Assessment: OT eval completed. Pt. presents with above deficits. Pt. is able to perform basic ADLs, transfer, and ambulate indep. No acute care services needed and pt. agrees. Recommend home with assist PRN. Prognosis: Good Decision Making: Low Complexity OT Education: OT Role;Plan of Care REQUIRES OT FOLLOW UP: No Activity Tolerance Activity Tolerance: Patient Tolerated treatment well Safety Devices Safety Devices in place: Yes Type of devices: Left in bed;Call light within reach Restraints Initially in place: No Patient Diagnosis(es): The primary encounter diagnosis was Ataxia. Diagnoses of Hypertension, unspecified type, Encephalopathy, Vision loss, Aphasia, and Seizure (HCC) were also pertinent to this visit. has a past medical history of Adenocarcinoma of right lung (HCC), CAD (coronary artery disease), COPD (chronic obstructive pulmonary disease) (HCC), DDD (degenerative disc disease), cervical, Essential hypertension, Family history of diabetes mellitus, H/O colonoscopy, History of colon polyps, History of renal carcinoma, History of SCC (squamous cell carcinoma) of skin, Hypercholesterolemia, Mass of right lung, PAD (peripheral artery disease) (HCC), Prostate cancer screening, Right carotid bruit, Right inguinal hernia, and Smoker. has a past surgical history that includes Colonoscopy (2013); total nephrectomy (Left, 2005); Skin cancer destruction (2011); Coronary angioplasty with stent (2002); Colonoscopy (02/2019); other surgical history (02/20/2021); other surgical history (03/12/2021); and Lung removal, partial (Right, 03/12/2021). Restrictions Restrictions/Precautions Restrictions/Precautions: Modified Diet, Fall Risk (Adult diet; regular; low sodium) Required Braces or Orthoses?: No Position Activity Restriction Other position/activity restrictions: IV pole Subjective General Chart Reviewed: Yes Patient assessed for rehabilitation services?: Yes Additional Pertinent Hx: CAD, HTN, lung cancer. Pt. had seizure (05/15) that lasted ~30 seconds. Family / Caregiver Present: Yes ( in room.) Diagnosis: Ataxia, hypertension, encephalopathy, vision loss, aphasia, seizure Subjective Subjective: Upon arrival, pt. sitting EOB. in room. Pt. reported he was in no pain. Pt. agreeable and cooperative to therapy. General Comment Comments: R hand dominant Patient Currently in Pain: Denies Social/Functional History Social/Functional History Lives With: Spouse, Son Type of Home: House Home Layout: Bed/Bath upstairs, Multi-level Home Access: Stairs to enter with rails Entrance Stairs - Number of Steps: 5 steps down from garage, 5 steps from garage to get into house Entrance Stairs - Rails: Right Bathroom Shower/Tub: Tub/Shower unit Bathroom Toilet: Standard Bathroom Accessibility: Accessible Home Equipment: Oxygen (d/c with o2 last admit nolonger needs) Receives Help From: Family ADL Assistance: Independent Homemaking Assistance: Independent Homemaking Responsibilities: Yes Ambulation Assistance: Independent Transfer Assistance: Independent Active Sample Patternmaker: Yes Mode of Transportation: Car 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 reported is able to assist PRN and son lives at home as well. Objective Vision: Impaired Vision Exceptions: Wears glasses at all times Hearing: Within functional limits Orientation Overall Orientation Status: Within Functional Limits Observation/Palpation Posture: Good Balance Sitting Balance: Independent Standing Balance: Independent Functional Mobility Functional - Mobility Device: No device Activity: To/from bathroom Assist Level: Independent Functional Mobility Comments: Pt. reported he did not feel fatigued, SOB, or in pain after ambulating. Pt. did not want to wear gait belt. Toilet Transfers Toilet - Technique: Ambulating Equipment Used: Standard toilet Toilet Transfer: Independent ADL Grooming: Independent LE Dressing: Independent Toileting: Independent Additional Comments: Pt. was able to indep don/doff socks and simulate performing toileting and washing hands at sink level indep. Based upon functional observation, pt. would be indep with feeding, dressing, and bathing. Coordination Movements Are Fluid And Coordinated: Yes Bed mobility Scooting: Independent Transfers Sit to stand: Independent Stand to sit: Independent Cognition Overall Cognitive Status: WFL Sensation Overall Sensation Status: (Pt. denied any numbness or tingling in hands or feet. Pt. was able to detect light touch with eyes closed when asked.) LUE AROM (degrees) LUE AROM : WFL Left Hand AROM (degrees) Left Hand AROM: WFL RUE AROM (degrees) RUE AROM : WFL Right Hand AROM (degrees) Right Hand AROM: WFL LUE Strength L Hand General: 4-/5 LUE Strength Comment: 4-/5 shoulder flexion; 4/5 elbow RUE Strength R Hand General: 4-/5 RUE Strength Comment: 4-/5 shoulder flexion; 4/5 elbow Plan Plan Plan Comment: Discharge OT. OutComes Score AM-PAC Daily Activity Inpatient How much help for putting on and taking off regular lower body clothing?: None How much help for Bathing?: None How much help for Toileting?: None How much help for putting on and taking off regular upper body clothing?: None How much help for taking care of personal grooming?: None How much help for eating meals?: None AM-PAC Inpatient Daily Activity Raw Score: 24 AM-PAC Inpatient ADL T-Scale Score : 57.54 ADL Inpatient CMS 0-100% Score: 0 ADL Inpatient CMS G-Code Modifier : CH Therapy Time Individual Concurrent Group Co-treatment Time In 1054 Time Out 1105 Minutes 11 Goals and/or treatment plan was established in collaboration with patient/family/other representatives. Silvina Jordan S/OT Occupational Therapy Attempt Note Pt currently OOR and getting an MRI per RN. Will attempt OT eval at a later date and time as schedule permits. Silvina Jordan S/OT Images from the original note were not included. [facility] Group Progress Note Kenn Iraheta Sr. : 1955(65 y.o.) Date: 05/16/21 Subjective: HPI The patient complains of :encephalopathy 65yo M with PMHx HTN, HLP, lung adenocarcinoma (s/p R-VATS, R-lobectomy), Stage IV RCC. Presented to [facility] ER 05/15 with complaints of disorientation with loss of right-vision. He was able to ambulate but was confused and with unsteady gait. Denied aphasia or speech difficulties or focal neurologic concerns. In ER, SBP 190-[address] Head and CTA w/perfusion studies. He experienced seizure-like activity and was given Keppra x1. This AM, afebrile. BP 162/69. Labs showing K 3.3, trop peak 0.052 Requested tylenol x2 overnight. This afternoon, seen in room at 3rd attempt (was down in MRI and EEG). Karen at bedside. Mr. Iraheta having echo done. Feels better - no headache until he coughs. Karen happy to hear about BP. Agrees to stay until tomorrow for further BP titration. Karen spoke with oncologist already - plan is to stay off inlyta. Scheduled Meds: sodium chloride flush 5-40 mL Intravenous 2 times per day aspirin 81 mg Oral Daily Or aspirin 300 mg Rectal Daily enoxaparin 40 mg Subcutaneous Daily rosuvastatin 40 mg Oral Nightly Continuous Infusions: sodium chloride sodium chloride 50 mL/hr at 05/15/212011 sodium chloride PRN Meds:sodium chloride flush, sodium chloride, acetaminophen OR acetaminophen, labetalol, hydrALAZINE, perflutren lipid microspheres, sodium chloride flush Review of Systems Constitutional: Negative for chills and fever. Gastrointestinal: Negative for nausea and vomiting. Neurological: Positive for headaches. Negative for dizziness, speech difficulty, weakness and light-headedness. Interval Pertinent History: Social History Tobacco Use Smoking status: Former Smoker Packs/day: 1.50 Years: 40.00 Pack years: 60.00 Types: Cigarettes Start date: 02/01/1981 Smokeless tobacco: Never Used Substance Use Topics Alcohol use: Yes Alcohol/week: 14.0 standard drinks Types: 14 Cans of beer per week Comment: couple beers a day Objective: Patient Vitals for the past 24 hrs: BP Temp Temp src Pulse Resp SpO2 Weight 05/16/21 0720 (!) 162/69 97.6 F (36.4 C) Temporal 72 17 93 % 05/16/21 0258 (!) 151/68 98.2 F (36.8 C) Temporal 65 16 96 % 05/15/21 2319 (!) 147/70 98.5 F (36.9 C) Temporal 78 20 93 % 05/15/21 1918 (!) 166/73 99.3 F (37.4 C) Temporal 80 18 94 % 05/15/21 1628 138/81 99.2 F (37.3 C) Temporal 71 18 95 % 05/15/21 1521 (!) 179/78 98.9 F (37.2 C) Oral 76 18 99 % 05/15/21 1425 (!) 148/73 98.9 F (37.2 C) Oral 80 18 98 % 05/15/21 1211 (!) 209/72 65 18 94 % 05/15/21 1127 (!) 205/81 81 18 96 % 05/15/21 1026 (!) 181/87 05/15/21 0952 97.8 F (36.6 C) Oral 05/15/21 0943 (!) 210/92 78 18 93 % 05/15/21 0934 (!) 190/74 68 18 93 % 190 lb (86.2 kg) Average, Min, and Max for last 24 hours Vitals: TEMPERATURE: Temp Av.6 F (37 C) Min: 97.6 F (36.4 C) Max: 99.3 F (37.4 C) RESPIRATIONS RANGE: Resp Av.9 Min: 16 Max: 20 PULSE RANGE: Pulse Av Min: 65 Max: 81 BLOOD PRESSURE RANGE: Systolic (24hrs), Av , Min:138 , Max:210 ; Diastolic (24hrs), Av, Min:68, Max:92 PULSE OXIMETRY RANGE: SpO2 Av.9 % Min: 93 % Max: 99 % No intake/output data recorded. Physical Exam Vitals and nursing note reviewed. Constitutional: Appearance: Normal appearance. He is not ill-appearing or diaphoretic. HENT: Head: Normocephalic and atraumatic. Nose: Comments: Wearing O2 Mouth/Throat: Mouth: Mucous membranes are moist. Eyes: General: No scleral icterus. Skin: General: Skin is warm and dry. Neurological: Mental Status: He is alert and oriented to person, place, and time. Comments: Strength and sensation intact Lab Results Component Value Date WBC 5.9 05/16/2021 HGB 12.0 (L) 05/16/2021 HCT 34.8 (L) 05/16/2021 MCV 78.1 (L) 05/16/2021 PLT 147 05/16/2021 Lab Results Component Value Date NA 136 05/16/2021 K 3.3 05/16/2021 CL 109 05/16/2021 CO2 18 05/16/2021 BUN 13 05/16/2021 CREATININE 0.87 05/16/2021 GLUCOSE 87 05/16/2021 CALCIUM 8.3 05/16/2021 Lab Results Component Value Date LABA1C 5.5 05/16/2021 Additional results of the last 24 hours have been reviewed. Assessment and Plan: Active Problems: CAD (coronary artery disease) Hypercholesterolemia COPD (chronic obstructive pulmonary disease) (HCC) History of renal carcinoma Essential hypertension PAD (peripheral artery disease) (HCC) Adenocarcinoma of left lung (HCC) Ataxia Encephalopathy Resolved Problems: * No resolved hospital problems. * Assessment/Plan: # PRES - MRI read mentions additional signal abnormality 2/2 PRES - clinically, this also fits - slow BP management, dc Inlyta ( d/w oncology) # Encephalopathy with associated gait abnormality - significant improvement - initially stroke workup but low suspicion for ishcemic event - ?Hypertensive encephalopathy vs TIA vs mets - remains confused - unable to verify day or his own age - MRI Brain W/WO, appreciate neuro # Hypertensive urgency v emergency # Hypertension - home meds: coreg, enalapril - labetalol 20mg in ER --> SBP down to 180 then back to 209 upon my evaluation in ER --> I requested home meds to be given (given at 12:10p, SBP 209 at 12:11p) --> given labetalol by ER at 2:23pm (BP documented 148/73 at 2:25p) - using only prn's, goal ~180 - inylta (chemo agent) with 40% risk of HTN # Seizure activity - occurred while in ER, in setting of accelerated BP - ?dropped too quickly by extra labetalol dose (see vitals/MAR) # Right-pleural effusion - noted on CTA 05/17/21 done in [place] (see Care everywhere) # Troponinemia - suspect from accelerated BP - EKG with mild ST dep --> trend trop, tele and EKG # CAD # Hyperlipidemia - home meds: cilostazol, enalapril, aspirin, statin # Lung adenocarcinoma, right (2020) # COPD - s/p R-VATS, RL lobectomy - on Inlyta (oral chemo) and Keytruda --> hold - [facility] [place] [facility], Dr. Rodriguez # Stage IV renal cell cancer (R-kidney mass) - mets to lung # Hyperkalemia - recheck after IVF # ETOH abuse DVT Prophylaxis: lovenox 40 q 24hr -creatinine clearance >30 Disposition: watch BP, titrate meds overnight, dc tomorrow afternoon I spent over 51% of total time providing counseling or incoordination of care: 35 minutes patient and family updated, I personally examined the patient and I personally reviewed chart, data, labs radiology reports D/w LUPE Oh and patient's (Karen) at length 6AM-6PM please page: 6PM-6AM please page: [facility] [place]. NEUROLOGY Patient Name:Kenn Iraheta Sr. Patient : 1955 Acct: [id number] Date of Admission: 05/15/2021 Room[facility]: [facility] PCP: Jacob Jennings DO Patient location Telemetry Remains in the hospital due to persistent unresolved acute issues, Subjective: 65M PMH HLD, tobacco abuse, CAD, DDD, renal ca, SCC, lung ca s/p resection March 2021, HTN, PAD presented as stroke team after waking up with confusion, encephalopathy. NIH 2 (partial R eye vision loss/ataxia)-->0. Initial CT, CTA, CTP without acute process. No tPA due to LKW/resolving symptoms. Admitted for further work-up. MRI with evidence of PRES. New Complain: Developed seizure activity yesterday afternoon in ER. Sedation:No Diet/TF:regular [place]: No VTE prophylaxis: YES Lovenox Antithrombotic therapy in first 24 hrs: Contraindicated because NIH 0, LKW Statin therapy for stroke stroke patients: High intensity Anticoagulation on AF patients: N/A no history of AF Activity: Up walking Disposition: TBD Current Hospital Medications: Current Facility-Administered Medications: 0.9 % sodium chloride infusion, , Intravenous, Continuous, Tono Birch MD 0.9 % sodium chloride infusion, , Intravenous, Continuous, Celsa Lyles, EVENT MARKETING MANAGER - WHEEL PRESS OPERATOR, Last Rate: 50 mL/hr at 05/15/212011, New Bag at 05/15/212011 sodium chloride flush 0.9 % injection 5-40 mL, 5-40 mL, Intravenous, 2 times per day, Celsa Lyles, EVENT MARKETING MANAGER - WHEEL PRESS OPERATOR, 10 mL at 05/15/212010 sodium chloride flush 0.9 % injection 5-40 mL, 5-40 mL, Intravenous, PRN, Celsa Venkata Lyles APRN - WHEEL PRESS OPERATOR 0.9 % sodium chloride infusion, 25 mL, Intravenous, PRN, Celsa Venkata Lyles, EVENT MARKETING MANAGER - WHEEL PRESS OPERATOR acetaminophen (TYLENOL) tablet 650 mg, 650 mg, Oral, Q4H PRN, 650 mg at 05/16/21 0015 OR acetaminophen (TYLENOL) suppository 650 mg, 650 mg, Rectal, Q4H PRN, Celsa Venkata Lyles, EVENT MARKETING MANAGER - WHEEL PRESS OPERATOR aspirin EC tablet 81 mg, 81 mg, Oral, Daily, 81 mg at 05/15/212011 OR aspirin suppository 300 mg, 300 mg, Rectal, Daily, Celsa Venkata Lyles, EVENT MARKETING MANAGER - WHEEL PRESS OPERATOR enoxaparin (LOVENOX) injection 40 mg, 40 mg, Subcutaneous, Daily, Celsa Venkata Lyles, EVENT MARKETING MANAGER - WHEEL PRESS OPERATOR, 40 mg at 05/15/212012 rosuvastatin (CRESTOR) tablet 40 mg, 40 mg, Oral, Nightly, Celsa Venkata Lyles, EVENT MARKETING MANAGER - WHEEL PRESS OPERATOR, 40 mg at 05/15/212011 labetalol (NORMODYNE;TRANDATE) injection 10 mg, 10 mg, Intravenous, Q4H PRN, Celsa Venkata Lyles, EVENT MARKETING MANAGER - WHEEL PRESS OPERATOR hydrALAZINE (APRESOLINE) injection 20 mg, 20 mg, Intravenous, Q6H PRN, Celsa Venkata Lyles, EVENT MARKETING MANAGER - WHEEL PRESS OPERATOR perflutren lipid microspheres (DEFINITY) injection 1.65 mg, 1.5 mL, Intravenous, ONCE PRN, Celsa Venkata Lyles, EVENT MARKETING MANAGER - WHEEL PRESS OPERATOR sodium chloride flush 0.9 % injection 5-40 mL, 5-40 mL, Intravenous, PRN, Celsa Venkata Wingar, EVENT MARKETING MANAGER - WHEEL PRESS OPERATOR Continuous Infusions: sodium chloride sodium chloride 50 mL/hr at 05/15/212011 sodium chloride Allergies: Patient has no known allergies. Review of Systems Constitutional: Negative for diaphoresis and unexpected weight change. HENT: Negative for trouble swallowing. Eyes: Negative for visual disturbance. Respiratory: Negative for cough and choking. Cardiovascular: Negative for chest pain and palpitations. Gastrointestinal: Negative for diarrhea and nausea. Genitourinary: Negative for dysuria. Musculoskeletal: Negative for back pain and gait problem. Skin: Negative for pallor. Neurological: Positive for seizures. Negative for dizziness, tremors, syncope, facial asymmetry, speech difficulty, light-headedness, numbness and headaches. Psychiatric/Behavioral: Positive for confusion. The patient is not nervous/anxious. Objective: Telemetry: Arrhythmia:No Physical Examination: Patient Vitals for the past 8 hrs: BP Temp Temp src Pulse Resp SpO2 05/16/21 0720 (!) 162/69 97.6 F (36.4 C) Temporal 72 17 93 % 05/16/21 0258 (!) 151/68 98.2 F (36.8 C) Temporal 65 16 96 % No intake/output data recorded. General Physical Examination: General:alert and well developed HEENT:Normocephalic, atraumaticl CV: S1+S2, RRR, no MRG. Pulm:CTA b/l, unlabored Abdomen: Soft NT/ND. BS + Skin: Intact without ulcers, breakdowns or discoloration Extremities: normal with no edema or cyanosis Orthopedic limitation; No Pulses: Intact peripherally Carotid auscultation :No bruits Neurological Examination: Higher Functions: Mental Status Exam: Level of Alertness:Awake Orientation: Normal toself, time, place Memory: Normal Fund of Knowledge: Normal Language: Normal Dysarthria not present Cranial Nerves: -II Visual acuity: normal -II Visualfields: normal -III Pupils (~ 3 mm OD, 3 mm OU) equal, round, reactive to light -III-IV- Extraocular Movements: intact -Nystagmus not present -Saccades and pursuits normal -V Facial sensation: intact Corneal's Intact bilateral -VII Facial strength:intact -VIII Hearing: Normal -IX-X - Gag reflex present -X Palate: normal -XI Shoulder shrug: intact -XII Tongue movement: Normal MotorExamination: Tone after evaluation of 4 limbs, the following findings applied: Normal -Bulk: normal -Muscle Stretch afterevaluation of all limbs, and axial musculature the following findings applied: Drift: No drift -Reflexes: after evaluation of 4 limbs, the following findings applied ; normal all limbs -Plantar responce: Flexor bilaterally Sensory Intact to light touch, pain / temperature, proprioception, Coordination: Arms Normal finger to nose Legs Intact heel knee shea testing Tremors not present Gait Normal NIHSS: 0 ANCILLARY Last 24hrs Recent Results (from the past 24 hour(s)) POC BMP, WHOLE BLOOD Collection Time: 05/15/21 9:29 AM Result Value Ref Range Sodium, Whole Blood 138 133 - 145 mmol/L Potassium, Whole Blood 5.4 (H) 3.4 - 5.1 mmol/L Chloride, Whole Blood 106 98 - 114 mmol/L CO2, WHOLE BLOOD 22 21 - 29 mmol/L Anion Gap 10.00 3.00 - 13.00 mmol/L Glucose, Whole Blood 111 (H) 70 - 100 mg/dL BUN, WHOLE BLOOD 21 4 - 22 mg/dL CREATININE, WHOLE BLOOD 0.90 0.60 - 1.30 mg/dL eGFR >90.0 >60 mL/min GFR Non- 87.7 >60 mL/min Calcium, Ion 4.6 4.3 - 5.2 mg/dL CBC Collection Time: 05/15/21 9:52 AM Result Value Ref Range WBC 6.2 3.6 - 10.7 10*3/uL RBC 5.04 4.40 - 5.90 10*6/uL Hemoglobin 13.7 13.0 - 18.0 g/dL Hematocrit 39.5 (L) 40.0 - 52.0 % MCV 78.3 (L) 80.0 - 98.0 fL MCH 27.2 26.0 - 34.0 pg MCHC 34.8 32.0 - 36.0 % RDW 14.7 (H) 11.5 - 14.5 % Platelets 144 140 - 440 10*3/uL MPV 8.0 7.4 - 10.4 fL Protime/INR & PTT Collection Time: 05/15/21 9:52 AM Result Value Ref Range Protime 10.7 9.0 - 12.0 s INR 1.0 0.9 - 1.1 NA aPTT 27.1 20.0 - 30.5 s Troponin Collection Time: 05/15/21 9:53 AM Result Value Ref Range Troponin I 0.039 (H) 0.000 - 0.034 ng/mL HCG Qualitative, Serum Collection Time: 05/15/21 9:53 AM Result Value Ref Range hCG Qual Disregard NA Ethanol Collection Time: 05/15/21 9:53 AM Result Value Ref Range Ethanol Lvl <0.010 0.000 - 0.010 g/dL Urinalysis Collection Time: 05/15/21 10:49 AM Result Value Ref Range Glucose, Ur Normal Normal (<70) mg/dL Total Protein, Urine 200 (A) Negative mg/dL Bilirubin Urine Negative Negative mg/dL Urobilinogen, Urine Normal Normal (0-1) mg/dL pH, Urine 6.5 5.0 - 8.0 NA Specific [place], Urine >1.030 (A) 1.005 - 1.030 NA Occult Blood,Urine 0.2 (A) Negative mg/dL Ketones, Urine Negative Negative mg/dL Nitrite, Urine Negative Negative NA LEUKOCYTES, UA Negative Negative Meera/uL Appearance Clear Clear NA Color, Urine Light-Yellow Lt. Yellow NA RBC, UA 6-10 (A) 0 - 2 /[HPF] WBC, UA 0-2 0 - 5 /[HPF] Squam Epithel, UA Negative 3 - 5 /[HPF] Bacteria, UA Negative Negative /[HPF] Mucous Threads Few Negative /[LPF] Add On Lab Test Collection Time: 05/15/21 10:55 AM Result Value Ref Range Add On Accepted NA POCT Glucose Collection Time: 05/15/21 2:07 PM Result Value Ref Range POC Glucose 118 (H) 70 - 100 mg/dL CBC Collection Time: 05/15/21 5:02 PM Result Value Ref Range WBC 8.3 3.6 - 10.7 10*3/uL RBC 4.97 4.40 - 5.90 10*6/uL Hemoglobin 13.2 13.0 - 18.0 g/dL Hematocrit 39.1 (L) 40.0 - 52.0 % MCV 78.6 (L) 80.0 - 98.0 fL MCH 26.5 26.0 - 34.0 pg MCHC 33.8 32.0 - 36.0 % RDW 14.6 (H) 11.5 - 14.5 % Platelets 150 140 - 440 10*3/uL MPV 7.6 7.4 - 10.4 fL Troponin Collection Time: 05/15/21 5:02 PM Result Value Ref Range Troponin I 0.052 (H) 0.000 - 0.034 ng/mL Comprehensive Metabolic Panel w/ Reflex to MG Collection Time: 05/16/21 12:02 AM Result Value Ref Range Sodium 136 135 - 145 mmol/L Potassium 3.3 (L) 3.5 - 5.1 mmol/L Chloride 109 (H) 98 - 107 mmol/L CO2 18 (L) 22 - 30 mmol/L Anion Gap 9 3 - 13 mmol/L Glucose 87 70 - 100 mg/dL BUN 13 7 - 20 mg/dL CREATININE 0.87 0.52 - 1.25 mg/dL eGFR >90.0 >60 mL/min EGFR IF NonAfrican Turkmen 88.9 >60 mL/min Calcium 8.3 (L) 8.4 - 10.4 mg/dL Albumin,Serum 3.3 (L) 3.5 - 5.0 g/dL Total Protein 5.8 (L) 6.3 - 8.2 g/dL Total Bilirubin 0.5 0.2 - 1.3 mg/dL Alkaline Phosphatase 55 38 - 126 U/L ALT 10 0 - 49 U/L AST 20 15 - 46 U/L CBC Collection Time: 05/16/21 12:02 AM Result Value Ref Range WBC 5.9 3.6 - 10.7 10*3/uL RBC 4.46 4.40 - 5.90 10*6/uL Hemoglobin 12.0 (L) 13.0 - 18.0 g/dL Hematocrit 34.8 (L) 40.0 - 52.0 % MCV 78.1 (L) 80.0 - 98.0 fL MCH 27.0 26.0 - 34.0 pg MCHC 34.6 32.0 - 36.0 % RDW 14.6 (H) 11.5 - 14.5 % Platelets 147 140 - 440 10*3/uL MPV 7.8 7.4 - 10.4 fL Hemoglobin A1c Collection Time: 05/16/21 12:02 AM Result Value Ref Range Hemoglobin A1C 5.5 % eAG 111 mg/dL Lipid panel - fasting Collection Time: 05/16/21 12:02 AM Result Value Ref Range Cholesterol 129 <200 mg/dL Triglycerides 107 <150 mg/dL HDL 26 (L) 40 - 60 mg/dL LDL Cholesterol 82 <100 mg/dL Chol/HDL Ratio 5 NA Troponin Collection Time: 05/16/21 12:02 AM Result Value Ref Range Troponin I 0.034 0.000 - 0.034 ng/mL Magnesium Collection Time: 05/16/21 12:02 AM Result Value Ref Range Magnesium 2.0 1.6 - 2.3 mg/dL Coagulation: Recent Labs 05/15/21 0952 INR 1.0 Stroke Specific: Lipids: Recent Labs 05/16/21 0002 CHOL 129 LDLCHOLESTEROL 82 TRIG 107 HDL 26* HgA1c: Recent Labs 05/16/21 [address] Head 05/15/21: No acute process CTA Head/Neck 05/15/21: No acute vascular abnormality or perfusion deficit MRI Brain 05/16/21: Mild signal changes in the periventricular white matter are likely secondary to chronic small vessel ischemia. New additional foci of signal abnormality in the centrum semiovale and posterior subcortical white matter may be secondary to posterior reversible encephalopathy. Follow-up is recommended. No evidence to suggest intracranial metastatic disease. No abnormal leptomeningeal or pachymeningeal enhancement. No acute ischemia/infarct. Inflammatory changes of the paranasal sinuses ASSESSMENT / PLAN/RECOMMENDATIONS: PRES - Can be sequela of HTN or some chemotherapy agents - Consider evaluation by Oncology to determine if particular chemotherapy agent is associated with PRES and needs to be changes. Otherwise, pt has reason for PRES due to HTN - Control BP - Follow up with OP neurology, likely wean off AED outpatient once PRES is resolved New onset seizure - Due to above - Continue Keppra 1000mg BID - EEG pending - Maintain seizure precautions (see below) Encephalopathy/gait instability (?initial R vision loss/some ataxia) - Suspect related to above - Would continue ASA 81 and rosuvastatin 20 (on these outpatient) Headache - Suspect related to HTN - Tylenol Elevated troponin - Trend HTN - Goals as above - TTE History of renal cell carcinoma/lung adenocarcinoma (resent R VATS/lobectomy - On chemotherapy currently, receives care at [facility] Tobacco abuse - [place] on cessation Please be mindful of seizure precautions: no swimming, no unmonitored baths, and, in general, no activities in which a sudden loss of consciousness could potentially cause severe injury to yourself or others (horseback riding, climbing trees, holding babies or small children, etc). Driving Risk: Having a seizure while driving puts both you and others on the road at risk for injury. Current state law requires a six month seizure free period before being able to drive Attempted to call Karen to update her on above but went to [facility]. Will attempt to meet her here when she comes in later today. Pt out of room when MRI results reviewed --- will return when pt back to go over above. Will keep an eye out for EEG results but otherwise no further neuro recs and will sign off. PHQ2 [address] Gallegos. and patient updated on above. Went over seizure precautions with both (verbalized understanding). Will review EEG results. Perhaps TTE can be done as outpatient and pt can be discharged later today. Will discuss with primary team. Speech Language Pathology Orders noted. Pt passed nursing dysphagia screen, on a cardiac diet. ST to sign off. documented in this encounter [facility] Work Phone: 03-15-2021 Note Discharge Summary Kenn Iraheta : 1955 ADMIT DATE: 03/12/2021 DISCHARGE DATE: 03/15/2021 ATTENDING PHYSICIAN: Anaid Zee MD VISIT STATUS: Admission CODE STATUS: Prior DISCHARGE DIAGNOSES: Active Problems: Adenosquamous carcinoma of lung, left (HCC) Resolved Problems: * No resolved hospital problems. * Lung Carcinoma metastatic to peribronchial lymph nodes Obesity BMI 31 HOSPITAL COURSE: Kenn Iraheta is a 65 y.o. male who presented to [facility] on 03/12/2021 For Right VATS, Right Lower Lobectomy with mediastinal lymph node dissection. He recovered well post-op and his chest tube was removed 03/15. He was still requiring a small amount of Oxygen at that time so he was discharged on home O2. At the time of discharge patient's vital signs were within normal limits. Patient was voiding spontaneously, tolerating a diet, ambulating independently and having bowel function. Patient's pain was controlled with PO pain meds. Pt was discharged with instructions as follows. CONSULTANTS: alexandra SIGNIFICANT DIAGNOSTIC STUDIES: Pathology DISCHARGE MEDICATIONS: Kenn Iraheta Sr. Home Medication Instructions LUIS:[id number] Printed on:03/22/21 8931 Medication Information aspirin 81 MG EC tablet Take 81 mg by mouth daily carvedilol (COREG) 25 MG tablet Take 1 tablet by mouth 2 times daily cilostazol (PLETAL) 50 MG tablet Take 1 tablet by mouth 2 times daily enalapril (VASOTEC) 20 MG tablet Inc to 20 mg BID nitroGLYCERIN (NITROSTAT) 0.[address] 1 tablet under the tongue every 5 minutes as needed for Chest pain 1 tablet under the tongue (allow to dissolve) every 5 minutes (not to exceed 3) oxyCODONE-acetaminophen (PERCOCET) 5-325 MG per tablet Take 1 tablet by mouth every 6 hours as needed for Pain for up to 7 days. Intended supply: 7 days. Take lowest dose possible to manage pain polyethylene glycol (GLYCOLAX) 17 GM/SCOOP powder Take 17 g by mouth daily as needed (constipation) rosuvastatin (CRESTOR) 40 MG tablet Take 1 tablet by mouth daily DIET: No diet orders on file ACTIVITY: No restriction. WOUND CARE: keep wound clean and dry DISPOSITION: Home FACILITY/HOME CARE AGENCY NAME: na Follow up with: Anaid Zee MD in 1-2 weeks PCP: Jacob Jennings DO in 1-2 weeks SIGNED: Evleio Hernandez MD 03/22/2021, 6:51 AM [facility] 03-15-2021 Hospital Discharg e instructions Evelio Hernandez MD - 03/15/2021 Images from the original note were not included. Discharge Instructions Call your surgeon in 1 to 2 days to schedule a follow-up appointment in 1-2 weeks. OK to shower. OK for activity as tolerated. Wound Care: keep wound clean and dry and ice to area for comfort Your chest tube stitch will be removed in the office. You may shower tomorrow but do not submerge in a pool or tub for 2 weeks. You may leave your incisions open to air or place bandages for comfort. No driving while taking narcotic pain medications. You may take an over the counter stool softener while on narcotics for constipation as needed (colace, miralax, etc). Call your Physician or return to the Emergency Room if you experience: -New or increased pain. -New or increased bleeding. -Nausea & vomitting. -Fever & chills. -Shortness of breath. -Chest pain. -Abdominal distention. documented in this encounter [facility] 03-15-2021 History of Presen t illness Narrative [facility] Respiratory Care Department Progress Note SpO2 at rest on RA = 91 HR at rest = 94 SpO2 with ambulation on RA = 86 Peak HR = 97 Distance Walked = [place] Recovery SpO2 with ambulation = 94 Recovery HR = 93 Recovery SpO2 with lpm with ambulation (if needed) = 3 Qualify for home O2 Y/N = Yes Patient mobile at home Y/N = Yes PAGING: The Acute Pain Service providers are available via [employer]. Please reference [facility] Provider ALUMNI RELATIONS COORDINATOR and direct all questions to the provider listed. Due to the current environment of [place] [id number], PPE was worn for the duration of all face to face encounters including but not limited to an N95 in accordance with [facility] and hospital guidelines. 03/15/2021 Referring Physician: Anaid Zee MD Subjective: We have been asked to see this 65 y.o. male for postoperative pain management s/p Surgery 03/12/21: Procedure: Right VATS Right muscle sparing thoracotomy Right lower lobectomy Right upper lobe wedge Right middle lobe wedge Mediastinal lymph node dissection Reviewed Lung Screening 01/28/21: Lung-RADS 4x: very suspicious for malignancy. NAEON, no pages Pt appears well, comfortable. Pt talkative and cooperative throughout exam. States his pain has been well controlled with PO pain medications. Reports ambulating without significant discomfort, O2 intact. PMH reviewed below, significant for: smoker, DDD, COPD, renal carcinoma, Adenocarcinoma Right lung Sedation score: 1: Awake and alert Pain Severity: Mild/moderate Pain Location: CT site Pain Quality: throbbing Aggravating Factors: Coughing Alleviating Factors: Rest/Pain medications Social History Tobacco Use Smoking Status Current Every Day Smoker Packs/day: 1.50 Years: 40.00 Pack years: 60.00 Types: Cigarettes Start date: 02/01/1981 Smokeless Tobacco Never Used Social History Substance and Sexual Activity Alcohol Use Not Currently Alcohol/week: 14.0 standard drinks Types: 14 Cans of beer per week Frequency: 4 or more times a week Drinks per session: 3 or 4 Binge frequency: Never Comment: couple beers a day Social History Substance and Sexual Activity Drug Use Never Pain Management: n/a The patient's medical history and physical assessment, medications, allergies, patient's current medical condition, imaging, and labs were reviewed as part of this consultation. [x] Patient's Medications have been reviewed. [x] Patient's OARRS report (PDMP) have been reviewed. ORS negative Objective Findings: Height: 5' 4 (162.6 cm) Weight: 181 lb (82.1 kg) BMI (Calculated): 31.1 Vital signs: Blood pressure 124/63, pulse 94, temperature 97.4 F (36.3 C), temperature source Oral, resp. rate 16, height 5' 4 (1.626 m), weight 181 lb (82.1 kg), SpO2 94 %. Lab Results Component Value Date/Time HGB 12.0 (L) 03/15/2021 06:04 AM HCT 35.2 (L) 03/15/2021 06:04 AM PLT 143 03/15/2021 06:04 AM WBC 5.5 03/15/2021 06:04 AM WBC 7.1 11/26/2015 07:50 AM NA 133 (L) 03/15/2021 06:04 AM K 4.0 03/15/2021 06:04 AM BUN 15 03/15/2021 06:04 AM CREATININE 0.75 03/15/2021 06:04 AM GLUCOSE 105 (H) 03/15/2021 06:04 AM AST 26 03/12/2021 10:29 AM ALT 16 03/12/2021 10:29 AM Allergies: Patient has no known allergies. Past Medical History: Diagnosis Date Adenocarcinoma of right lung (HCC) 02/2021 rx pnd CAD (coronary artery disease) [address] Mcguire, neg stress test 08/26 at [facility] COPD (chronic obstructive pulmonary disease) (HCC) per cxr (smoker) DDD (degenerative disc disease), cervical NSAID therapy Essential hypertension 1993 Family history of diabetes mellitus sister H/O colonoscopy 02/2019 [facility]- small polyp- due 2023 History of colon polyps 2000 [facility], 2013, 2018 History of renal carcinoma 07/2006 Dr. Tariq History of SCC (squamous cell carcinoma) of skin 2011 scalp - [facility] [place] Hypercholesterolemia LDL Mass of right lung 01/2021 Workup for lung nodule clinic pending PAD (peripheral artery disease) (HCC) 07/2019 Rt worse than Lt, pt defering angiogram rec per Dr. Donhaue Prostate cancer screening 06/2020 Right carotid bruit 2014 <50% per repeat doppler, 12/26 Right inguinal hernia defers OR Smoker Past Surgical History: Procedure Laterality Date COLONOSCOPY 2013 [facility] COLONOSCOPY 02/2019 [facility]- small polyp- due 2023 CORONARY ANGIOPLASTY WITH STENT PLACEMENT 2002 OTHER SURGICAL HISTORY 02/20/2021 EBUS/ENB OTHER SURGICAL HISTORY 03/12/2021 Right VATS thoracotomy SKIN CANCER DESTRUCTION 2012 squamous cell per [facility] TOTAL NEPHRECTOMY Left 2005 [facility] Family History Problem Relation Age of Onset Stroke Mother age 77 Coronary Art Dis Mother CABG Lung Cancer Mother Coronary Art Dis Father age 50 [place] - smoker Diabetes Sister Coronary Art Dis Sister CABG No Known Problems Brother Coronary Art Dis Brother age 47 [place] No Known Problems Sister No Known Problems Sister No Known Problems Sister Patient Active Problem List Diagnosis CAD (coronary artery disease) Hypercholesterolemia Smoker History of colon polyps COPD (chronic obstructive pulmonary disease) (HCC) DDD (degenerative disc disease), cervical History of renal carcinoma History of SCC (squamous cell carcinoma) of skin Family history of diabetes mellitus Right inguinal hernia Right carotid bruit NSAID long-term use Essential hypertension PAD (peripheral artery disease) (HCC) Lung mass 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 Cardiovascular: Positive for chest pain. Gastrointestinal: Negative for abdominal distention and abdominal pain. Physical Exam Vitals signs and nursing note reviewed. Cardiovascular: Rate and Rhythm: Normal rate. Chest: Chest wall: Tenderness present. Neurological: Mental Status: He is alert and oriented to person, place, and time. Psychiatric: Behavior: Behavior normal. Behavior is cooperative. Pain Management Adjuvants: 0700 --> 0700 03/12/202103/13 Scheduled APAP 2000mg 3000mg 3 g PRN [employer]OR OF EMPLOYEE DEVELOPMENT (discontinued) 1.8mg 5.7 mg Oxycodone 40 mg Hydromorphone 0 mg Exparel Block Injection date: 03/12/21 Medication : Bupivacaine liposome injectable suspension Location: Erector Spinae/Serratus Plane Side Effects: Denies nausea, headache, constipation, dysgeusia, pyrexia, hypoesthesia, muscle twitching, vomiting, pruritus, dizziness, hypertension, dyspepsia. Assessment / Pain Management Plan: 1. Acute Postsurgical chest pain dc Hydromorphone [employer]EL[employer]. Continue Oxycodone 5 - 10 mg po q4h prn moderate to severe breakthrough pain. Continue Hydromorphone 0.25 mg - 0.5 mg IVP q4h prn moderate to severe breakthrough pain. Please utilize oral medications first. Patient has not required dose overnight. Continue Acetaminophen 1000 mg po TID scheduled ATC. Liver enzymes WNL, last checked: 03/12/21. Start 03/13 @ 1400 Continue Lidocaine patches x 2. Cut and place as needed. Start 03/16 Exparel block 03/12 NSAIDs per CTS discretion 2. Constipation At risk for opioid induced constipation Patient currently receiving opioids for pain management necessitating a bowel regimen. Continue scheduled Sennakot-S 8.6/50mg, 1 tablet PO BID. Continue Glycolax LBM:03/12/21. +flatus 3. Opioid Use Acute: Expected to be short term postop pain, see #1 OARRS reviewed for past two years. o Opiate naive: No RX opiates filled last 2 years Reviewed and educated patient on responsible use of opioids: after surgery, it can be normal to experience pain. If it is mild and you can move about without great difficulty or discomfort, you may not need to take pain medication. It is very important to take your pain medication only as needed. Avoiding excessive or unnecessary medication, will enable you to progress your activity each day to improve your muscle tone and movement, deep breathing, digestion, circulation and your body's ability to heal itself. Patient pain is well controlled at this time on current pain regimen. We will sign off at this time. Please re-consult our service if patient's pain becomes uncontrolled. Thank you for inviting us to participate in the care of this patient. Plan discussed with patient who appears to understand and agrees. PAGING: The Acute Pain Service providers are available via [employer]. Please reference [facility] Provider ALUMNI RELATIONS COORDINATOR and direct all questions to the provider listed. Images from the original note were not included. Cardiothoracic Surgery Note 03/15/2021 Procedure Biopsy proven RLL NSCLC S/P Right VATS Right muscle sparing thoracotomy Right lower lobectomy Right upper lobe wedge Right middle lobe wedge Mediastinal lymph node dissection Dr. Zee History of Present Illness Kenn Iraheta Sr. is a 65 y.o. male doing well post - NAEON, VSS overnight. Did very well, ambulated in hallway on room air. Did desaturate to 88 but returned to low 90's when at rest. Pain well controlled. Tolerating diet. Passing flatus but no BM since surgery. POD #3: R Vats, LL lobectomy, RML wedge, RUL wedge Past Medical History Past Medical History: Diagnosis Date Adenocarcinoma of right lung (HCC) 02/2021 rx pnd CAD (coronary artery disease) [address] Mcguire, neg stress test 08/26 at [facility] COPD (chronic obstructive pulmonary disease) (HCC) per cxr (smoker) DDD (degenerative disc disease), cervical NSAID therapy Essential hypertension 1993 Family history of diabetes mellitus sister H/O colonoscopy 02/2019 [facility]- small polyp- due 2023 History of colon polyps 2000 [facility], 2013, 2018 History of renal carcinoma 07/2006 Dr. Tariq History of SCC (squamous cell carcinoma) of skin 2011 scalp - [facility] [place] Hypercholesterolemia LDL Mass of right lung 01/2021 Workup for lung nodule clinic pending PAD (peripheral artery disease) (HCC) 07/2019 Rt worse than Lt, pt defering angiogram rec per Dr. Moawad Prostate cancer screening 06/2020 Right carotid bruit 2015 <50% per repeat doppler, 12/26 Right inguinal hernia defers OR Smoker Past Surgical History Past Surgical History: Procedure Laterality Date COLONOSCOPY 2013 [facility] COLONOSCOPY 02/2019 [facility]- small polyp- due 2023 CORONARY ANGIOPLASTY WITH STENT PLACEMENT 2002 OTHER SURGICAL HISTORY 02/20/2021 EBUS/ENB OTHER SURGICAL HISTORY 03/12/2021 Right VATS thoracotomy SKIN CANCER DESTRUCTION 2012 squamous cell per [facility] TOTAL NEPHRECTOMY Left 2006 [facility] Family History Family History Problem Relation Age of Onset Stroke Mother age 77 Coronary Art Dis Mother CABG Lung Cancer Mother Coronary Art Dis Father age 50 [place] - sm[place] Diabetes Sister Coronary Art Dis Sister CABG No Known Problems Brother Coronary Art Dis Brother age 47 [place] No Known Problems Sister No Known Problems Sister No Known Problems Sister Social History Social History Tobacco Use Smoking status: Current Every Day Smoker Packs/day: 1.50 Years: 40.00 Pack years: 60.00 Types: Cigarettes Start date: 02/01/1981 Smokeless tobacco: Never Used Substance Use Topics Alcohol use: Not Currently Alcohol/week: 14.0 standard drinks Types: 14 Cans of beer per week Frequency: 4 or more times a week Drinks per session: 3 or 4 Binge frequency: Never Comment: couple beers a day Drug use: Never Allergies No Known Allergies Medications Current Facility-Administered Medications: HYDROmorphone (DILAUDID) injection 0.25 mg, 0.25 mg, Intravenous, Q4H PRN OR HYDROmorphone (DILAUDID) injection 0.5 mg, 0.5 mg, Intravenous, Q4H PRN, LEXI Atkins CNP oxyCODONE (ROXICODONE) immediate release tablet 5 mg, 5 mg, Oral, Q4H PRN OR oxyCODONE (ROXICODONE) immediate release tablet 10 mg, 10 mg, Oral, Q4H PRN, LEXI Atkins CNP, 10 mg at 03/15/21 0313 sodium chloride flush 0.9 % injection 5-40 mL, 5-40 mL, Intravenous, 2 times per day, LEXI Alvarado CNP, 10 mL at 03/14/21 0907 sodium chloride flush 0.9 % injection 5-40 mL, 5-40 mL, Intravenous, PRN, LEXI Alvarado CNP 0.9 % sodium chloride infusion, 25 mL, Intravenous, PRN, LEXI Alvarado CNP enoxaparin (LOVENOX) injection 40 mg, 40 mg, Subcutaneous, Daily, LEXI Alvarado CNP, 40 mg at 03/14/21905 albuterol (PROVENTIL) nebulizer solution 2.5 mg, 2.5 mg, Nebulization, Q4H WA, LEXI Alvarado CNP, 2.5 mg at 03/14/21 162 polyethylene glycol (GLYCOLAX) packet 17 g, 17 g, Oral, Daily, LEXI Alvarado CNP, 17 g at 03/14/2106 sennosides-docusate sodium (SENOKOT-S) 8.6-50 MG tablet 1 tablet, 1 tablet, Oral, BID, LEXI Alvarado CNP, 1 tablet at 03/14/212050 ondansetron (ZOFRAN) injection 4 mg, 4 mg, Intravenous, Q6H PRN, LEXI Alvarado CNP acetaminophen (TYLENOL) tablet 1,000 mg, 1,000 mg, Oral, TID, LEXI Atkins CNP, 1,000 mg at 03/14/212050 [START ON 03/16/2021] lidocaine 4 % external patch 2 patch, 2 patch, Transdermal, Daily, LEIX Atkins CNP Labs WBC Date/Time Value Ref Range Status 03/13/2021 03:32 AM 10.2 3.6 - 10.7 10*3/uL Final 03/12/2021 10:29 AM 6.4 3.6 - 10.7 10*3/uL Final 11/26/2015 07:50 AM 7.1 3.6 - 10.7 thous/uL Final 05/28/2015 07:40 AM 9.2 3.6 - 10.7 Final Hemoglobin Date/Time Value Ref Range Status 03/13/2021 03:32 AM 14.2 13.0 - 18.0 g/dL Final 03/12/2021 10:29 AM 14.0 13.0 - 18.0 g/dL Final Platelets Date/Time Value Ref Range Status 03/13/2021 03:32 AM 161 140 - 440 10*3/uL Final 03/12/2021 10:29 AM 154 140 - 440 10*3/uL Final Sodium Date/Time Value Ref Range Status 03/12/2021 10:29 AM 138 135 - 145 mmol/L Final 07/02/2020 07:32 AM 139 135 - 145 mmol/L Final Potassium Date/Time Value Ref Range Status 03/12/2021 10:29 AM 4.1 3.5 - 5.1 mmol/L Final 07/02/2020 07:32 AM 4.4 3.5 - 5.1 mmol/L Final CREATININE Date/Time Value Ref Range Status 03/12/2021 10:29 AM 0.78 0.52 - 1.25 mg/dL Final 07/02/2020 07:32 AM 0.88 0.52 - 1.25 mg/dL Final Imaging: CXR Reviewed Assessment and plan Lung Nodule S/P Right lower lobectomy 03/12 - maintain water seal - CXR improving - HLIV - anticipate likely chest tube removal today, possible DC - increase bowel regiment - continue regular diet / bowel regiment - Ambulate TID, IS, acapella Disclaimer INFORMED CONSENT:The nature and purpose of the proposed treatment or procedure have been discussed. The risks and benefits of the proposed treatment or procedures have been reviewed. Alternatives have been reviewed in addition to the risks and benefits of not receiving treatments or undergoing procedures. Pursuant to this discussion, the patient agrees to undergo the proposed treatment or procedure. Captured images seen in this note from are not a substitute for a comprehensive interpretation of the entire data set as reflected by the interpreting physician with regard to radiology, echocardiography, and other diagnostic images. This note may have been dictated using [employer] Edition 2.6 and/or [employer] Voice Recognition Feature. The document was proofread, however unrecognized voice recognition case management specialist errors may be present. Pt walked around unit ( on room air ) pt did well and did not start to de sat until last 5 feet - pt sat down and o2 saturation Returned to 92%and sob went away . .Nutrition rescreen completed. Chart reviewed. Patient to be monitored and followed by the diet audiology technician.HEIDI Fernandes PAGING: The Acute Pain Service providers are available via [employer]. Please reference [facility] Provider ALUMNI RELATIONS COORDINATOR and direct all questions to the provider listed. Due to the current environment of [place] [address], PPE was worn for the duration of all face to face encounters including but not limited to an N95 in accordance with [facility] and hospital guidelines. 03/14/2021 Referring Physician: Anaid Zee MD Subjective: We have been asked to see this 65 y.o. male for postoperative pain management s/p Surgery 03/12/21: Procedure: Right VATS Right muscle sparing thoracotomy Right lower lobectomy Right upper lobe wedge Right middle lobe wedge Mediastinal lymph node dissection Reviewed Lung Screening 01/28/21: Lung-RADS 4x: very suspicious for malignancy. NAEON, no pages Pt appears well, comfortable. Pt talkative and cooperative throughout exam, controlled with DIRECTOR OF EMPLOYEE DEVELOPMENT. Tolerating diet, denies n/v. Pt agreeable to PO transition today/ Patient educated on new pain regimen, agreeable, denies further questions. CT back to suction after drsng change today 2/2 concern for SQ emphysema. Now back to water seal. PMH reviewed below, significant for: smoker, DDD, COPD, renal carcinoma, Adenocarcinoma Right lung Sedation score: 1: Awake and alert Pain Severity: moderate Pain Location: CT site Pain Quality: throbbing Aggravating Factors: Coughing Alleviating Factors: Rest/Pain medications Social History Tobacco Use Smoking Status Current Every Day Smoker Packs/day: 1.50 Years: 40.00 Pack years: 60.00 Types: Cigarettes Start date: 02/01/1981 Smokeless Tobacco Never Used Social History Substance and Sexual Activity Alcohol Use Not Currently Alcohol/week: 14.0 standard drinks Types: 14 Cans of beer per week Frequency: 4 or more times a week Drinks per session: 3 or 4 Binge frequency: Never Comment: couple beers a day Social History Substance and Sexual Activity Drug Use Never Pain Management: n/a The patient's medical history and physical assessment, medications, allergies, patient's current medical condition, imaging, and labs were reviewed as part of this consultation. [x] Patient's Medications have been reviewed. [x] Patient's OARRS report (PDMP) have been reviewed. ORS negative Objective Findings: Height: 5' 4 (162.6 cm) Weight: 187 lb 9.8 oz (85.1 kg) BMI (Calculated): 32.3 Vital signs: Blood pressure (!) 140/73, pulse 77, temperature 98.5 F (36.9 C), temperature source Oral, resp. rate 20, height 5' 4 (1.626 m), weight 187 lb 9.8 oz (85.1 kg), SpO2 95 %. Lab Results Component Value Date/Time HGB 14.2 03/13/2021 03:32 AM HCT 42.6 03/13/2021 03:32 AM PLT 161 03/13/2021 03:32 AM WBC 10.2 03/13/2021 03:32 AM WBC 7.1 11/26/2015 07:50 AM NA 138 03/12/2021 10:29 AM K 4.1 03/12/2021 10:29 AM BUN 18 03/12/2021 10:29 AM CREATININE 0.78 03/12/2021 10:29 AM GLUCOSE 101 (H) 03/12/2021 10:29 AM AST 26 03/12/2021 10:29 AM ALT 16 03/12/2021 10:29 AM Allergies: Patient has no known allergies. Past Medical History: Diagnosis Date Adenocarcinoma of right lung (HCC) 02/2021 rx pnd CAD (coronary artery disease) [address] Mcguire, neg stress test 08/26 at [facility] COPD (chronic obstructive pulmonary disease) (HCC) per cxr (smoker) DDD (degenerative disc disease), cervical NSAID therapy Essential hypertension 1993 Family history of diabetes mellitus sister H/O colonoscopy 02/2019 [facility]- small polyp- due 2023 History of colon polyps 2000 [facility], 2013, 2018 History of renal carcinoma 07/2006 Dr. Tariq History of SCC (squamous cell carcinoma) of skin 2011 scalp - [facility] [place] Hypercholesterolemia LDL Mass of right lung 01/2021 Workup for lung nodule clinic pending PAD (peripheral artery disease) (HCC) 07/2019 Rt worse than Lt, pt defering angiogram rec per Dr. Donahue Prostate cancer screening 06/2020 Right carotid bruit 2015 <50% per repeat doppler, 12/26 Right inguinal hernia defers OR Smoker Past Surgical History: Procedure Laterality Date COLONOSCOPY 2013 [facility] COLONOSCOPY 02/2019 [facility]- small polyp- due 2023 CORONARY ANGIOPLASTY WITH STENT PLACEMENT 2002 OTHER SURGICAL HISTORY 02/20/2021 EBUS/ENB OTHER SURGICAL HISTORY 03/12/2021 Right VATS thoracotomy SKIN CANCER DESTRUCTION 2012 squamous cell per [place] TOTAL NEPHRECTOMY Left 2006 [facility] Family History Problem Relation Age of Onset Stroke Mother age 77 Coronary Art Dis Mother CABG Lung Cancer Mother Coronary Art Dis Father age 50 [place] - smoker Diabetes Sister Coronary Art Dis Sister CABG No Known Problems Brother Coronary Art Dis Brother age 47 [place] No Known Problems Sister No Known Problems Sister No Known Problems Sister Patient Active Problem List Diagnosis CAD (coronary artery disease) Hypercholesterolemia Smoker History of colon polyps COPD (chronic obstructive pulmonary disease) (HCC) DDD (degenerative disc disease), cervical History of renal carcinoma History of SCC (squamous cell carcinoma) of skin Family history of diabetes mellitus Right inguinal hernia Right carotid bruit NSAID long-term use Essential hypertension PAD (peripheral artery disease) (HCC) Lung mass 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 Cardiovascular: Positive for chest pain. Gastrointestinal: Negative for abdominal distention and abdominal pain. Physical Exam Vitals signs and nursing note reviewed. Cardiovascular: Rate and Rhythm: Normal rate. Chest: Chest wall: Tenderness present. Neurological: Mental Status: He is alert and oriented to person, place, and time. Psychiatric: Behavior: Behavior normal. Behavior is cooperative. Pain Management Adjuvants: 0700 --> 0700 03/12/202103/13 Scheduled APAP 2000mg 3000mg PRN DIRECTOR OF EMPLOYEE DEVELOPMENT 1.8mg 5.7 mg Exparel Block Injection date: 03/12/21 Medication : Bupivacaine liposome injectable suspension Location: Erector Spinae/Serratus Plane Side Effects: Denies nausea, headache, constipation, dysgeusia, pyrexia, hypoesthesia, muscle twitching, vomiting, pruritus, dizziness, hypertension, dyspepsia. Assessment / Pain Management Plan: 1. Acute Postsurgical chest pain dc Hydromorphone [employer]OR OF [employer]EE [employer]ELOPMENT. Order Oxycodone 5 - 10 mg po q4h prn moderate to severe breakthrough pain. Order Hydromorphone 0.25 mg - 0.5 mg IVP q4h prn moderate to severe breakthrough pain. Please utilize oral medications first. Continue Acetaminophen 1000 mg po TID scheduled ATC. Liver enzymes WNL, last checked: 03/12/21. Start 03/13 @ 1400 Continue Lidocaine patches x 2. Cut and place as needed. Start 03/16 Exparel block 03/12 NSAIDs per CTS discretion 2. Constipation At risk for opioid induced constipation Patient currently receiving opioids for pain management necessitating a bowel regimen. Continue scheduled Sennakot-S 8.6/50mg, 1 tablet PO BID. Continue Glycolax LBM:03/12/21. +flatus 3. Opioid Use Acute: Expected to be short term postop pain, see #1 OARRS reviewed for past two years. o Opiate naive: No RX opiates filled last 2 years Reviewed and educated patient on responsible use of opioids: after surgery, it can be normal to experience pain. If it is mild and you can move about without great difficulty or discomfort, you may not need to take pain medication. It is very important to take your pain medication only as needed. Avoiding excessive or unnecessary medication, will enable you to progress your activity each day to improve your muscle tone and movement, deep breathing, digestion, circulation and your body's ability to heal itself. Will follow. Plan discussed with patient who appears to understand and agrees. PAGING: The Acute Pain Service providers are available via [employer]. Please reference [facility] Provider ALUMNI RELATIONS COORDINATOR and direct all questions to the provider listed. Images from the original note were not included. Cardiothoracic Surgery Note 03/14/2021 Procedure Biopsy proven RLL NSCLC S/P Right VATS Right muscle sparing thoracotomy Right lower lobectomy Right upper lobe wedge Right middle lobe wedge Mediastinal lymph node dissection Dr. Zee History of Present Illness Kenn Iraheta Sr. is a 65 y.o. male doing well post - VSS overnight, did have some productive cough this morning. On AM dressing change, concern for subcutaneous emphysema, and chest tube placed back to suction. POD #2: R Vats, LL lobectomy, RML wedge, RUL wedge Past Medical History Past Medical History: Diagnosis Date Adenocarcinoma of right lung (HCC) 02/2021 rx pnd CAD (coronary artery disease) [address] Mcguire, neg stress test 08/26 at [facility] COPD (chronic obstructive pulmonary disease) (HCC) per cxr (smoker) DDD (degenerative disc disease), cervical NSAID therapy Essential hypertension 1993 Family history of diabetes mellitus sister H/O colonoscopy 02/2019 [facility]- small polyp- due 2023 History of colon polyps 2000 [facility], 2013, 2018 History of renal carcinoma 07/2006 Dr. Tariq History of SCC (squamous cell carcinoma) of skin 2011 scalp - [facility] [place] Hypercholesterolemia LDL Mass of right lung 01/2021 Workup for lung nodule clinic pending PAD (peripheral artery disease) (HCC) 07/2019 Rt worse than Lt, pt defering angiogram rec per Dr. Donahue Prostate cancer screening 06/2020 Right carotid bruit 2014 <50% per repeat doppler, 12/26 Right inguinal hernia defers OR Smoker Past Surgical History Past Surgical History: Procedure Laterality Date COLONOSCOPY 2013 [facility] COLONOSCOPY 02/2019 [facility]- small polyp- due 2023 CORONARY ANGIOPLASTY WITH STENT PLACEMENT 2002 OTHER SURGICAL HISTORY 02/20/2021 EBUS/ENB OTHER SURGICAL HISTORY 03/12/2021 Right VATS thoracotomy SKIN CANCER DESTRUCTION 2012 squamous cell per Brett TOTAL NEPHRECTOMY Left 2005 [place] Family History Family History Problem Relation Age of Onset Stroke Mother age 77 Coronary Art Dis Mother CABG Lung Cancer Mother Coronary Art Dis Father age 50 [place] - smoker Diabetes Sister Coronary Art Dis Sister CABG No Known Problems Brother Coronary Art Dis Brother age 47 [place] No Known Problems Sister No Known Problems Sister No Known Problems Sister Social History Social History Tobacco Use Smoking status: Current Every Day Smoker Packs/day: 1.50 Years: 40.00 Pack years: 60.00 Types: Cigarettes Start date: 02/01/1981 Smokeless tobacco: Never Used Substance Use Topics Alcohol use: Not Currently Alcohol/week: 14.0 standard drinks Types: 14 Cans of beer per week Frequency: 4 or more times a week Drinks per session: 3 or 4 Binge frequency: Never Comment: couple beers a day Drug use: Never Allergies No Known Allergies Medications Current Facility-Administered Medications: lactated ringers infusion, , Intravenous, Continuous, Dawit Valiente, DO, Stopped at 03/13/21 0802 sodium chloride flush 0.9 % injection 5-40 mL, 5-40 mL, Intravenous, 2 times per day, LEXI Alvarado CNP sodium chloride flush 0.9 % injection 5-40 mL, 5-40 mL, Intravenous, PRN, LEXI Alvarado CNP 0.9 % sodium chloride infusion, 25 mL, Intravenous, PRN, LEXI Alvarado CNP enoxaparin (LOVENOX) injection 40 mg, 40 mg, Subcutaneous, Daily, LEXI Alvarado CNP, 40 mg at 03/13/21 0939 albuterol (PROVENTIL) nebulizer solution 2.5 mg, 2.5 mg, Nebulization, Q4H WA, LEXI Alvarado CNP, 2.5 mg at 03/13/212017 polyethylene glycol (GLYCOLAX) packet 17 g, 17 g, Oral, Daily, LEXI Alvarado CNP, 17 g at 03/13/21 0938 sennosides-docusate sodium (SENOKOT-S) 8.6-50 MG tablet 1 tablet, 1 tablet, Oral, BID, LEXI Alvarado CNP, 1 tablet at 03/13/21 213 ondansetron (ZOFRAN) injection 4 mg, 4 mg, Intravenous, Q6H PRN, LEXI Alvarado CNP acetaminophen (TYLENOL) tablet 1,000 mg, 1,000 mg, Oral, TID, LEXI Atkins CNP, 1,000 mg at 03/13/21 213 naloxone (NARCAN) injection 0.4 mg, 0.4 mg, Intravenous, PRN, LEXI Atkins CNP HYDROmorphone (DILAUDID) 30 mg in sodium chloride 0.9 % 30 mL DIRECTOR OF EMPLOYEE DEVELOPMENT, , Intravenous, Continuous, LEXI Atkins CNP, Rate Verify at 03/13/21 0745 [START ON 03/16/2021] lidocaine 4 % external patch 2 patch, 2 patch, Transdermal, Daily, LEXI Atkins CNP Labs WBC Date/Time Value Ref Range Status 03/13/2021 03:32 AM 10.2 3.6 - 10.7 10*3/uL Final 03/12/2021 10:29 AM 6.4 3.6 - 10.7 10*3/uL Final 11/26/2015 07:50 AM 7.1 3.6 - 10.7 thous/uL Final 05/28/2015 07:40 AM 9.2 3.6 - 10.7 Final Hemoglobin Date/Time Value Ref Range Status 03/13/2021 03:32 AM 14.2 13.0 - 18.0 g/dL Final 03/12/2021 10:29 AM 14.0 13.0 - 18.0 g/dL Final Platelets Date/Time Value Ref Range Status 03/13/2021 03:32 AM 161 140 - 440 10*3/uL Final 03/12/2021 10:29 AM 154 140 - 440 10*3/uL Final Sodium Date/Time Value Ref Range Status 03/12/2021 10:29 AM 138 135 - 145 mmol/L Final 07/02/2020 07:32 AM 139 135 - 145 mmol/L Final Potassium Date/Time Value Ref Range Status 03/12/2021 10:29 AM 4.1 3.5 - 5.1 mmol/L Final 07/02/2020 07:32 AM 4.4 3.5 - 5.1 mmol/L Final CREATININE Date/Time Value Ref Range Status 03/12/2021 10:29 AM 0.78 0.52 - 1.25 mg/dL Final 07/02/2020 07:32 AM 0.88 0.52 - 1.25 mg/dL Final Imaging Assessment and plan Lung Nodule S/P Right lower lobectomy 03/12 - will place back to water seal this morning, monitor for dyspnea - HLIV - continue regular diet / bowel regiment - Ambulate TID, IS, acapella Disclaimer INFORMED CONSENT:The nature and purpose of the proposed treatment or procedure have been discussed. The risks and benefits of the proposed treatment or procedures have been reviewed. Alternatives have been reviewed in addition to the risks and benefits of not receiving treatments or undergoing procedures. Pursuant to this discussion, the patient agrees to undergo the proposed treatment or procedure. Captured images seen in this note from are not a substitute for a comprehensive interpretation of the entire data set as reflected by the interpreting physician with regard to radiology, echocardiography, and other diagnostic images. This note may have been dictated using [employer] Edition 2.6 and/or Stitcher Voice Recognition Feature. The document was proofread, however unrecognized voice recognition case management specialist errors may be present. Images from the original note were not included. Cardiothoracic Surgery Note 03/13/2021 Procedure Biopsy proven RLL NSCLC S/P Right VATS Right muscle sparing thoracotomy Right lower lobectomy Right upper lobe wedge Right middle lobe wedge Mediastinal lymph node dissection Dr. Zee History of Present Illness Kenn Iraheta Sr. is a 65 y.o. male doing well post - VSS overnight, poor effort to cough, CT to water seal, pain controlled with DIRECTOR OF EMPLOYEE DEVELOPMENT POD #1: R Vats, LL lobectomy, RML wedge, RUL wedge No changes since seen in clinic. Past Medical History Past Medical History: Diagnosis Date Adenocarcinoma of right lung (HCC) 02/2021 rx pnd CAD (coronary artery disease) [address] Mcguire, neg stress test 08/26 at [facility] COPD (chronic obstructive pulmonary disease) (HCC) per cxr (smoker) DDD (degenerative disc disease), cervical NSAID therapy Essential hypertension 1993 Family history of diabetes mellitus sister H/O colonoscopy 02/2019 med- small polyp- due 2023 History of colon polyps 2000 [facility], 2013, 2018 History of renal carcinoma 07/2006 Dr. Tariq History of SCC (squamous cell carcinoma) of skin 2011 scalp - [facility] [place] Hypercholesterolemia LDL Mass of right lung 01/2021 Workup for lung nodule clinic pending PAD (peripheral artery disease) (HCC) 07/2019 Rt worse than Lt, pt defering angiogram rec per Dr. Donahue Prostate cancer screening 06/2020 Right carotid bruit 2014 <50% per repeat doppler, 12/26 Right inguinal hernia defers OR Smoker Past Surgical History Past Surgical History: Procedure Laterality Date COLONOSCOPY 2013 [facility] COLONOSCOPY 02/2019 med- small polyp- due 2023 CORONARY ANGIOPLASTY WITH STENT PLACEMENT 2002 OTHER SURGICAL HISTORY 02/20/2021 EBUS/ENB OTHER SURGICAL HISTORY 03/12/2021 Right VATS thoracotomy SKIN CANCER DESTRUCTION 2012 squamous cell per [facility] TOTAL NEPHRECTOMY Left 2005 [facility] Family History Family History Problem Relation Age of Onset Stroke Mother age 77 Coronary Art Dis Mother CABG Lung Cancer Mother Coronary Art Dis Father age 50 [place] - smoker Diabetes Sister Coronary Art Dis Sister CABG No Known Problems Brother Coronary Art Dis Brother age 47 [place] No Known Problems Sister No Known Problems Sister No Known Problems Sister Social History Social History Tobacco Use Smoking status: Current Every Day Smoker Packs/day: 1.50 Years: 40.00 Pack years: 60.00 Types: Cigarettes Start date: 02/01/1981 Smokeless tobacco: Never Used Substance Use Topics Alcohol use: Not Currently Alcohol/week: 14.0 standard drinks Types: 14 Cans of beer per week Frequency: 4 or more times a week Drinks per session: 3 or 4 Binge frequency: Never Comment: couple beers a day Drug use: Never Allergies No Known Allergies Medications Current Facility-Administered Medications: lactated ringers infusion, , Intravenous, Continuous, Dawit Valiente DO, Last Rate: 50 mL/hr at 03/12/21 1051, New Bag at 03/12/21 105 dextrose 5 % in lactated ringers infusion, , Intravenous, Continuous, LEXI Alvarado CNP, Last Rate: 50 mL/hr at 03/12/212021, Rate Verify at 03/12/212021 sodium chloride flush 0.9 % injection 5-40 mL, 5-40 mL, Intravenous, 2 times per day, LEXI Alvarado CNP sodium chloride flush 0.9 % injection 5-40 mL, 5-40 mL, Intravenous, PRN, Merlene Castro APRN - THANH 0.9 % sodium chloride infusion, 25 mL, Intravenous, PRN, LEXI Alvarado CNP enoxaparin (LOVENOX) injection 40 mg, 40 mg, Subcutaneous, Daily, LEXI Alvarado CNP, 40 mg at 03/12/212021 albuterol (PROVENTIL) nebulizer solution 2.5 mg, 2.5 mg, Nebulization, Q4H WA, LEXI Alvarado CNP, 2.5 mg at 03/12/212041 polyethylene glycol (GLYCOLAX) packet 17 g, 17 g, Oral, Daily, LEXI Alvarado CNP, 17 g at 03/12/212021 sennosides-docusate sodium (SENOKOT-S) 8.6-50 MG tablet 1 tablet, 1 tablet, Oral, BID, LEXI Alvarado CNP, 1 tablet at 03/12/212021 ondansetron (ZOFRAN) injection 4 mg, 4 mg, Intravenous, Q6H PRN, LEXI Alvarado CNP acetaminophen (TYLENOL) tablet 1,000 mg, 1,000 mg, Oral, TID, LEXI Atkins CNP acetaminophen (OFIRMEV) infusion 1,000 mg, 1,000 mg, Intravenous, TID, LEXI Atkins CNP, Stopped at 03/12/212037 naloxone (NARCAN) injection 0.4 mg, 0.4 mg, Intravenous, PRN, LEXI Atkins CNP HYDROmorphone (DILAUDID) 30 mg in sodium chloride 0.9 % 30 mL DIRECTOR OF EMPLOYEE DEVELOPMENT, , Intravenous, Continuous, LEXI Atkins CNP, New Bag at 03/12/21 1803 [START ON 03/16/2021] lidocaine 4 % external patch 2 patch, 2 patch, Transdermal, Daily, LEXI Atkins CNP Labs WBC Date/Time Value Ref Range Status 03/13/2021 03:32 AM 10.2 3.6 - 10.7 10*3/uL Final 03/12/2021 10:29 AM 6.4 3.6 - 10.7 10*3/uL Final 11/26/2015 07:50 AM 7.1 3.6 - 10.7 thous/uL Final 05/28/2015 07:40 AM 9.2 3.6 - 10.7 Final Hemoglobin Date/Time Value Ref Range Status 03/13/2021 03:32 AM 14.2 13.0 - 18.0 g/dL Final 03/12/2021 10:29 AM 14.0 13.0 - 18.0 g/dL Final Platelets Date/Time Value Ref Range Status 03/13/2021 03:32 AM 161 140 - 440 10*3/uL Final 03/12/2021 10:29 AM 154 140 - 440 10*3/uL Final Sodium Date/Time Value Ref Range Status 03/12/2021 10:29 AM 138 135 - 145 mmol/L Final 07/02/2020 07:32 AM 139 135 - 145 mmol/L Final Potassium Date/Time Value Ref Range Status 03/12/2021 10:29 AM 4.1 3.5 - 5.1 mmol/L Final 07/02/2020 07:32 AM 4.4 3.5 - 5.1 mmol/L Final CREATININE Date/Time Value Ref Range Status 03/12/2021 10:29 AM 0.78 0.52 - 1.25 mg/dL Final 07/02/2020 07:32 AM 0.88 0.52 - 1.25 mg/dL Final Imaging Assessment and plan Lung Nodule S/P Right lower lobectomy - Pathology pending - CT with Air Leak poor middle lobe expansion - C&DB poor effort - Pain continue [employer]OR [employer]OYEE [employer]ELOPMENT - placed CT to water seal - regular diet / bowel regiment - Disclaimer INFORMED CONSENT:The nature and purpose of the proposed treatment or procedure have been discussed. The risks and benefits of the proposed treatment or procedures have been reviewed. Alternatives have been reviewed in addition to the risks and benefits of not receiving treatments or undergoing procedures. Pursuant to this discussion, the patient agrees to undergo the proposed treatment or procedure. Captured images seen in this note from are not a substitute for a comprehensive interpretation of the entire data set as reflected by the interpreting physician with regard to radiology, echocardiography, and other diagnostic images. This note may have been dictated using [employer] Edition 2.6 and/or [employer]cher Voice Recognition Feature. The document was proofread, however unrecognized voice recognition case management specialist errors may be present. Pt arrived to PACU from OR. Pt ID verified. Monitors applied with alarms on. Vital signs stable. Called radiology for CXR. Waiting for response. EKG at patient bedside. documented in this encounter [facility] Work Phone: Evaluation + Plan note No data available for this section [facility] documented in this encounter [facility] Work Phone: Evaluation note* Diagnosis Ataxia- Primary Lack of coordination Hypertension, unspecified type Encephalopathy Encephalopathy, unspecified Vision loss Unspecified visual loss Aphasia Seizure (HCC) Other convulsions CAD (coronary artery disease) Coronary atherosclerosis of unspecified type of vessel, [place] or graft Hypercholesterolemia Pure hypercholesterolemia COPD (chronic obstructive pulmonary disease) (HCC) Chronic airway obstruction, not elsewhere classified History of renal carcinoma Personal history of malignant neoplasm of kidney Essential hypertension Unspecified essential hypertension PAD (peripheral artery disease) (HCC) Unspecified disorders of arteries and arterioles Adenocarcinoma of left lung (HCC) documented in this encounter [facility] Work Phone: Evaluation note* Diagnosis Seizure (HCC) Other convulsions documented in this encounter [facility] Work Phone: Evaluation note* Diagnosis Posterior reversible encephalopathy syndrome Other encephalopathy Unspecified convulsions (HCC) PRES (posterior reversible encephalopathy syndrome) Other encephalopathy Seizure (HCC) Other convulsions documented in this encounter [facility] Work Phone: Evaluation note* Diagnosis PRES (posterior reversible encephalopathy syndrome)- Primary documented in this encounter [facility] note* Diagnosis 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 [facility]* Diagnosis 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- Primary [facility]* Diagnosis 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- Primary [facility]* Diagnosis Metastatic cancer to brain (HCC)- Primary Secondary malignant neoplasm of brain and spinal cord documented in this encounter [facility] note* Diagnosis 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 [facility]* Diagnosis Metastatic cancer to brain (HCC) Secondary malignant neoplasm of brain and spinal cord [facility]* Diagnosis Metastatic cancer to brain (HCC)- Primary Secondary malignant neoplasm of brain and spinal cord [facility]* Diagnosis Epistaxis- Primary Skin tear of right upper arm without complication, initial encounter Upper respiratory tract infection, unspecified type documented in this encounter [facility] Discharge instructions No data available for this section [facility] Reason for referral (narrative)* Consultation (Routine) - Pending Review Specialty Diagnoses / Procedures Referred By Colt t Referred To Contact Otolaryngology Diagnoses Epistaxis Procedures [place] OFFICE/OUTPATIENT NEW HIGH MDM 60 MINUTES Em Paz PA-C [address] [place] [address] Referral ID Status Reason Start Date Expiration Date Visits Requested Visits Authorized [id number] Pending Review Specialty Services Required 11/24/2023 11/23/2024 1 1 [facility] Assessments Diagnosis Right carotid bruit Other symptoms involving cardiovascular system Diagnosis Smoker Tobacco use disorder Diagnosis Claudication of right lower extremity (HCC) Peripheral vascular disease, unspecified Diagnosis Lung mass Swelling, mass, or lump in chest Diagnosis Lung mass Swelling, mass, or lump in chest Advance Directives No Advanced Directives Records FoundDocuments on File Type Date Recorded Patient Tong Hooker Expl anation ACP-Advance Directive ACP-Power of Accessioner Documents on File Type Date Recorded Patient Tong Hooker Expl anation ACP-Advance Directive ACP-Power of Accessioner Documents on File Type Date Recorded Patient Tong Hooker Expl anation Advance Directives and Living Will Power of Accessioner Latest Code Status on File Code Status Date Activated Date Inactivated Comments Full Code 03/12/2021 7:20 PM Full Code 03/12/2021 10:12 AM 03/12/2021 4:58 PM Latest Code Status on File Code Status Date Activated Date Inactivated Comments Full Code 05/16/2021 8:09 PM Full Code 05/15/2021 3:53 PM 05/16/2021 8:03 PM Full Code 03/12/2021 7:20 PM 03/15/2021 5:23 PM Latest Code Status on File Code Status Date Activated Date Inactivated Comments Full Code 05/16/2021 8:09 PM 05/17/2021 8:40 PM Latest Code Status on File Code Status Date Activated Date Inactivated Comments Full Code 05/16/2021 8:09 PM 05/17/2021 8:40 PM Full Code 05/15/2021 3:53 PM 05/16/2021 8:03 PM Full Code 03/12/2021 7:20 PM 03/15/2021 5:23 PM Full Code 03/12/2021 10:12 AM 03/12/2021 4:58 PM Reason for Referral Status Reason Specialty Diagnoses / Procedures Referre d By Contact Referred To Contact Closed Radiology Diagnoses Smoker Procedures CT lung screen [Initial/Annual] Jacob Jennings, DO [address] [place] [address] Status Reason Specialty Diagnoses / Procedures Referre d By Contact Referred To Contact Open Radiology Diagnoses Claudication of right lower extremity (HCC) Procedures VL Arterial PVR Lower w Exercise Jacob Jennings, DO [address] [place] [address] Status Reason Specialty Diagnoses / Procedures Referre d By Contact Referred To Contact Open Radiology Diagnoses Lung mass Procedures PET CT SKULL BASE TO MID THIGH Jose Miguel Foster MD [address] [place] [address] Status Reason Specialty Diagnoses / Procedures Re ferred By Contact Referred To Contact Open Radiology Diagnoses PRES (posterior reversible encephalopathy syndrome) Seizure (HCC) Procedures MRI BRAIN W WO CONTRAST Marcie Shay APRN - WHEEL PRESS OPERATOR [address] [place] [address] Specialty Diagnoses / Procedures Referred By Contac t Referred To Contact MR IMAGING Diagnoses 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 Procedures MRI BRAIN WO/W IVCON MRI BRAIN BRAIN STEM W/O W/CONTRAST MATERIAL Laurie Westfall APRN.WHEEL PRESS OPERATOR [address] [facility] [place] [address] Mr Imaging Referral ID Status Reason Start Date Expiration Date V isits Requested Visits Authorized [id number] Closed Auto-Generate d Referral 05/29/2023 06/27/2024 1 1 Referral ID Status Reason Start Date Expiration Date Visits Requested Visits Authorized [id number] Authorized Auto-Generat ed Referral 06/09/2023 07/08/2024 1 1 Specialty Diagnoses / Procedures Referred By Contac t Referred To Contact MR IMAGING Diagnoses Metastatic cancer to brain (HCC) Procedures MRI BRAIN WO/W IVCON MRI BRAIN BRAIN STEM W/O W/CONTRAST MATERIAL Francois Lindsay MD [address] [facility] [place] [address] [place] [address] Referral ID Status Reason Start Date Expiration Date Visits Requested Visits Authorized [id number] Authorized Auto-Generat ed Referral 08/07/2023 09/05/2024 1 1 Specialty Diagnoses / Procedures Referred By Contac t Referred To Contact MR IMAGING Diagnoses Metastatic cancer to brain (HCC) Procedures MRI BRAIN WO/W IVCON MRI BRAIN BRAIN STEM W/O W/CONTRAST MATERIAL Laurie Westfall APRN.WHEEL PRESS OPERATOR [address] [facility] [place] [address] Mr Imaging [facility] Referral ID Status Reason Start Date Expiration Date Visits Requested Visits Authorized [id number] Pending Review Auto-Generat ed Referral 3 11/18/2024 1 1 History of Present Illness * Brandie Hare RN - 02/20/2021 1:[address] Foster regarding CXR and discharge. Waiting for response. * Brandie Hare RN - 02/20/2021 1:40 PM EDT CXR complete at bedside. * Brandie Hare RN - 02/20/2021 1:15 PM EDT Called radiology for CXR. Waiting for response. documented in this encounter Summary Purpose Family History No Family History Records FoundNo Family History Records FoundNo Family History Records FoundNo Family History Records FoundNo Family History Records FoundNo Family History Records FoundNo Family History Records FoundNo Family History Records Found Additional Source Comments Ordered Prescriptions (unrec ognized section and content) Prescription Sig Dispensed Refills Start Date End Da te levETIRAcetam (KEPPRA) 1000 MG tablet Take 1 tablet by mouth 2 times daily 60 tablet 0 05/17/2021 hydrALAZINE (APRESOLINE) 50 MG tablet Take 1 tablet by mouth every 8 hours 90 tablet 0 05/17/2021 enalapril (VASOTEC) 20 MG tablet Take 1 tablet by mouth 2 times daily 180 tablet 0 05/17/2021 hydrALAZINE (APRESOLINE) 50 MG tablet Take 1 tablet by mouth every 8 hours 90 tablet 0 05/17/2021 05/17/2021 levETIRAcetam (KEPPRA) 1000 MG tablet Take 1 tablet by mouth 2 times daily 60 tablet 0 05/17/2021 05/17/2021 Reason for Visit (unrecogniz ed section and content) Reason Comments New Patient Brain lesion Reason Onset Date Comments Medical records 05/22/2023 Reason Comments Appointment Specialty Diagnoses / Procedures [facility] Referred To Contact MR IMAGING Diagnoses 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 Procedures MRI BRAIN WO/W IVCON MRI BRAIN BRAIN STEM W/O W/CONTRAST MATERIAL Laurie Westfall APRN.WHEEL PRESS OPERATOR [address] [facility] [address] Mr Imaging Referral ID Status Reason Start Date Expiration Date V isits Requested Visits Authorized [id number] Closed Auto-Generate d Referral 05/29/2023 06/27/2024 1 1 Reason Comments Established Patient Reason Comments Returning Patient's Call Reason Comments Patient Update Reason Comments Med Refill Reason Comments Refill Request Reason Comments Patient Question Specialty Diagnoses / Procedures [facility] Referred To Contact MR IMAGING Diagnoses Metastatic cancer to brain (HCC) Procedures MRI BRAIN WO/W IVCON MRI BRAIN BRAIN STEM W/O W/CONTRAST MATERIAL Francois Lindsay MD [address] [facility] [place] [address] [place] [address] Referral ID Status Reason Start Date Expiration Date V isits Requested Visits Authorized [id number] Closed Auto-Generate d Referral 08/07/2023 09/05/2024 1 1 Reason Onset Date Comments Nose Problem 11/24/2023 Reason Comments Epistaxis (Nose Bleed) On Eliquis Scheduled Active and Recently Administ ered Medications (unrecognized section and content) Continuous Medication Order 05/15/2021 05/16/2021 05/17/2021 0.9 % sodium chloride infusion (CANCELED) Intravenous, at 50 mL/hr, CONTINUOUS, Starting on Thu05/15/21 at 1615 2011 (New Bag - Provider: Dahiana Pino, RN) PRN Medication Order 05/15/2021 05/16/2021 05/17/2021 0.9 % sodium chloride infusion 25 mL, Intravenous, at 100 mL/hr, PRN, If patient receiving piggyback infusions without ordered maintenance IV fluids or with frequent/long duration piggyback infusions, Starting on Tena 05/16/21 at 2002, Administer at the same rate as the piggyback being infused. acetaminophen (TYLENOL) suppository 650 mg(Linked Group 2) 650 mg, Rectal, EVERY 4 HOURS PRN, Pain Mild (1-3), Fever, Fever >100.5 (38 C), Starting on Tena 05/16/21 at 2002, Use suppository if NPO or failed swallow screen. acetaminophen (TYLENOL) tablet 650 mg (CANCELED) 650 mg, Oral, EVERY 4 HOURS PRN, Pain Mild (1-3), Fever, Fever >100.5 (38 C), Starting on Thu05/15/21 at 1553, Do not use if NPO or failed swallow screen. 1756 (Given - Provider: Adriano Christian RN) 0015 (Given - Provider: Dahiana Pino, LUPE - Comment: mild LOPEZ) acetaminophen (TYLENOL) tablet 650 mg(Linked Group 2) 650 mg, Oral, EVERY 4 HOURS PRN, Pain Mild (1-3), Fever, Fever >100.5 (38 C), Starting on Tena 05/16/21 at 2002, Do not use if NPO or failed swallow screen. gadobutrol (GADAVIST) injection 8 mL (COMPLETED) 8 mL, Intravenous, IMG ONCE PRN, Other, Starting on Tena 05/16/21 at 1036, For 1 dose 1029 (Given - Provider: Angella Bello) hydrALAZINE (APRESOLINE) injection 10 mg 10 mg, Intravenous, EVERY 4 HOURS PRN, High Blood Pressure, prn systolic >140, Starting on Thu05/17/21 at 1537 labetalol (NORMODYNE;TRANDATE) injection 10 mg (CANCELED) 10 mg, Intravenous, EVERY 4 HOURS PRN, High Blood Pressure, Starting on Thu05/15/21 at 1553, SBP >180. Hold for HR <60. 1st line 0435 (Given - Provider: Dahiana Pino, RN) ondansetron (ZOFRAN) injection 4 mg 4 mg, Intravenous, EVERY 6 HOURS PRN, Nausea, Vomiting, Starting on Thu05/16/21 at 2002 perflutren lipid microspheres (DEFINITY) injection 1.65 mg 1.65 mg (1.5 mL), Intravenous, IMG ONCE PRN, Other, Suboptimal Echo Image, Starting on Thu05/15/21 at 1553, For 72 hours, Administer up to 1.65 mg via slow IVP for suboptimal echocardiogram enhancement. May administer as concentrated dose or diluted in 8.5 mL of 0.9% sodium chloride for a total volume of 10 mL. May administer as divided doses to reach optimal image enhancement. polyethylene glycol (GLYCOLAX) packet 17 g 17 g, Oral, DAILY PRN, Constipation, Starting on Thu05/16/21 at 2002, First line therapy for constipation sodium chloride flush 0.9 % injection 5-40 mL 5-40 mL, Intravenous, PRN, Line Care, After every IV line use, Starting on Thu05/15/21 at 1553, For Line Patency: Peripheral IV = 5 mL; Midline or Central Line = 10 mL/lumen. If following IV push medication, administer flush at same rate as the IV push. Flush volume is determined by type of infusion therapy being given. For non-viscous solutions use: Peripheral IV = 5 mL Midline or Central Line = 10 mL/lumen For viscous solutions (i.e. blood components, parenteral nutrition, contrast media, or after obtaining blood sample) use: Peripheral IV = 10 mL Midline or Central Line = 20 mL/lumen sodium chloride flush 0.9 % injection 5-40 mL 5-40 mL, Intravenous, PRN, Line Care, Per Paramedic Request, Starting on Thu05/15/21 at 1553, For 72 hours, May use order for Line Care after every IV line use and Agitated Saline Bubble Study. Administration for Bubble Study per remittance clerk request for only. Remove 1 mL 0.9% sodium chloride from 10 mL syringe for creating agitated saline. If following IV push medication, administer flush at same rate as the IV push. Flush volume is determined by type of infusion therapy being given. , For non-viscous solutions use: Peripheral IV = 5 mL Midline or Central Line = 10 mL/lumen For viscous solutions (i.e. blood components, parenteral nutrition, contrast media, or after obtaining blood sample) use: Peripheral IV = 10 mL Midline or Central Line = 20 mL/lumen Linked Groups Order Group 1: aspirin EC tablet 81 mgJump to med 81 mg, Oral, DAILY, First dose on Thu05/15/21 at 1615
Do NOT administer if bleed present on follow up CT-Head.
Or aspirin suppository 300 mgJump to med 300 mg, Rectal, DAILY, First dose on Thu05/15/21 at 1615
Use suppository if NPO or failed swallow screen.
Group 2: acetaminophen (TYLENOL) tablet 650 mgJump to med 650 mg, Oral, EVERY 4 HOURS PRN, Pain Mild (1-3), Fever, Fever >100.5 (38 C), Starting on Tena 05/16/21 at 2002
Do not use if NPO or failed swallow screen.
Or acetaminophen (TYLENOL) suppository 650 mgJump to med 650 mg, Rectal, EVERY 4 HOURS PRN, Pain Mild (1-3), Fever, Fever >100.5 (38 C), Starting on Tena 05/16/21 at 2002
Use suppository if NPO or failed swallow screen.
(unrecognized sect ion and content) No Status Records FoundNo Status Records FoundNo Status Records FoundNo Status Records FoundNo Status Records FoundNo Status Records FoundNo Status Records FoundNo Status Records Found INFORMATION SOURCE (unrecogn ized section and content) DATE CREATED AUTHOR AUTHOR'S ORGANIZ ATION [facility] DATE CREATED AUTHOR AUTHOR'S ORGANIZ ATION 11/22/2021 [facility] DATE CREATED AUTHOR AUTHOR'S ORGANIZ ATION 12/10/2022 [facility] ([place]) DATE CREATED AUTHOR AUTHOR'S ORGANIZ ATION 04/21/2023 [facility] DATE CREATED AUTHOR AUTHOR'S ORGANIZ ATION 10/21/2023 [facility] DATE CREATED AUTHOR AUTHOR'S ORGANIZ ATION 11/25/2023 [facility] DATE CREATED AUTHOR AUTHOR'S ORGANIZ ATION 12/10/2023 [facility] Care Team (unrecognized sect ion and content) Care Team Personnel Name: KINSEY HORTON MD Position: P4 Oncology Provider Member Role: Radiation Oncologist Address: Address: [address] [place] [address] [place] [address]- Name: JACOB JENNINGS DO Member Role: Primary Care Physician Address: Address: [address] [place] [id number] Care Team Related Persons Name: KAREN IRAHETA Address: Home [address] [place] [id number] Care Teams (unrecognized sec tion and content) Sheet Mill Supervisor Relationship Specialty Start Date End Date Jacob Jennings DO [address] [place] [address] PCP - General 05/28/15 Sheet [employer] Supervisor Relationship Specialty Start Date End Date Jacob Jennings Sharda [address] [place] [address] PCP - General 05/28/15 Sheet Mill Supervisor Relationship Specialty Start Date End Date Jacob Jennings [address] [place] [address] PCP - General Family Medicine 12/20/18 Sheet [employer] Supervisor Relationship Specialty Start Date End Date Jacob Jennings [address] [place] [address] PCP - General Family Medicine 12/20/18 Sheet Mill Supervisor Relationship Specialty Start Date End Date AsaJacob alicea [address] [place], [place] [phone] PCP - General Family Medicine 12/20/18 Sheet Mill Supervisor Relationship Specialty Start Date End Date Jacob Jennings [address] [place] [address] PCP - General Family Medicine 12/20/18 Sheet Mill Supervisor Relationship Specialty Start Date End Date AsaJacob alicea [address] [place], [place] [phone] PCP - General Family Medicine 12/20/18 Sheet Mill Supervisor Relationship Specialty Start Date End Date DickJacobDO [address] [place] [address] PCP - General 05/28/15 Sheet [employer] Supervisor Relationship Specialty Start Date End Date AsaJacob alicea [address] [place] [address] PCP - General Family Medicine 12/20/18 Sheet Mill Supervisor Relationship Specialty Start Date End Date Jacob Jennings [address] [place] [address] PCP - General Family Medicine 12/20/18 Sheet Mill Supervisor Relationship Specialty Start Date End Date Jacob Jennings [address] [place], [place] [phone] PCP - General Family Medicine 12/20/18 Sheet Mill Supervisor Relationship Specialty Start Date End Date AsaJacob alicea [address] [place], [place] [id number] PCP - General Family Medicine 12/20/18 Sheet Mill Supervisor Relationship Specialty Start Date End Date Jacob Jennings DO [address] [place], [place] [phone] PCP - General Family Medicine 12/20/18 Sheet Mill Supervisor Relationship Specialty Start Date End Date Jacob Jennings DO [address] [facility] [place] [phone] PCP - General Family Medicine 12/20/18 Sheet Mill Supervisor Relationship Specialty Start Date End Date Jacob Jennings DO [address] [place] [address] PCP - General 05/28/15 Sheet Mill Supervisor Relationship Specialty Start Date End Date Jacob Jennings DO [address] [place] [address] PCP - General 05/28/15 Source Comments (unrecognize d section and content) In the event this informatio n is protected by the Federal Confidentiality of Alcohol and Drug Abuse Patient Records regulations: The Federal rules restrict any use of the information to criminally investigate or prosecute any alcohol or drug abuse patient.[facility] the event this information is protected by the Federal Confidentiality of Alcohol and Drug Abuse Patient Records regulations: The Federal rules restrict any use of the information to criminally investigate or prosecute any alcohol or drug abuse patient.[facility]In the event this information is protected by the Federal Confidentiality of Alcohol and Drug Abuse Patient Records regulations: The Federal rules restrict any use of the information to criminally investigate or prosecute any alcohol or drug abuse patient.[facility]In the event this information is protected by the Federal Confidentiality of Alcohol and Drug Abuse Patient Records regulations: The Federal rules restrict any use of the information to criminally investigate or prosecute any alcohol or drug abuse patient.[facility] HospitalIn the event this information is protected by the Federal Confidentiality of Alcohol and Drug Abuse Patient Records regulations: The Federal rules restrict any use of the information to criminally investigate or prosecute any alcohol or drug abuse patient.[facility] Hospital[facility] the event this information is protected by the Federal Confidentiality of Alcohol and Drug Abuse Patient Records regulations: The Federal rules restrict any use of the information to criminally investigate or prosecute any alcohol or drug abuse patient.[facility] the event this information is protected by the Federal Confidentiality of Alcohol and Drug Abuse Patient Records regulations: The Federal rules restrict any use of the information to criminally investigate or prosecute any alcohol or drug abuse patient.[facility] HospitalIn the event this information is protected by the Federal Confidentiality of Alcohol and Drug Abuse Patient Records regulations: The Federal rules restrict any use of the information to criminally investigate or prosecute any alcohol or drug abuse patient.[facility] Hospital[facility] the event this information is protected by the Federal Confidentiality of Alcohol and Drug Abuse Patient Records regulations: The Federal rules restrict any use of the information to criminally investigate or prosecute any alcohol or drug abuse patient.[facility] HospitalIn the event this information is protected by the Federal Confidentiality of Alcohol and Drug Abuse Patient Records regulations: The Federal rules restrict any use of the information to criminally investigate or prosecute any alcohol or drug abuse patient.[facility] HospitalIn the event this information is protected by the Federal Confidentiality of Alcohol and Drug Abuse Patient Records regulations: The Federal rules restrict any use of the information to criminally investigate or prosecute any alcohol or drug abuse patient.[facility] HospitalIn the event this information is protected by the Federal Confidentiality of Alcohol and Drug Abuse Patient Records regulations: The Federal rules restrict any use of the information to criminally investigate or prosecute any alcohol or drug abuse patient.[facility] HospitalIn the event this information is protected by the Federal Confidentiality of Alcohol and Drug Abuse Patient Records regulations: The Federal rules restrict any use of the information to criminally investigate or prosecute any alcohol or drug abuse patient.[facility] HospitalIn the event this information is protected by the Federal Confidentiality of Alcohol and Drug Abuse Patient Records regulations: The Federal rules restrict any use of the information to criminally investigate or prosecute any alcohol or drug abuse patient.[facility] HospitalIn the event this information is protected by the Federal Confidentiality of Alcohol and Drug Abuse Patient Records regulations: The Federal rules restrict any use of the information to criminally investigate or prosecute any alcohol or drug abuse patient.[facility] HospitalIn the event this information is protected by the Federal Confidentiality of Alcohol and Drug Abuse Patient Records regulations: The Federal rules restrict any use of the information to criminally investigate or prosecute any alcohol or drug abuse patient.[facility] FOR RECORDS PERTAINING TO PATIENTS WHO ARE OR HAVE BEEN ENROLLED IN A CHEMICAL DEPENDENCY/SUBSTANCEABUSE PROGRAM, SOME INFORMATION MAY BE OMITTED. This clinical summary was aggregated from multiple sources. Caution should be exercised in using it in the provision of clinical care. This summary normalizes information from multiple sources, and as a consequence, information in this document may materially change the coding, format and clinical context of patient data. In addition, data may be omitted in some cases. CLINICAL DECISIONS SHOULD BE BASED ON THE PRIMARY CLINICAL RECORDS. [facility]. provides no warranty or guarantee of the accuracy or completeness of information in this document.
--- NOTE | 2024-01-06 07:44 | MRI_ITS ---
EXAM: MR THORACIC SPINE WITHOUT AND WITH INTRAVENOUS CONTRAST CLINICAL INDICATION: RUE,RLE numbness, renal cancer TECHNIQUE: Multiplanar and multisequence MR images of the thoracic spine without and with intravenous contrast. CONTRAST: IV 19cc CLARISCAN COMPARISON: No relevant prior studies available. FINDINGS: VERTEBRAE: Normal. No fracture. Normal vertebral bodies and posterior elements. Normal alignment. There is preservation of the normal thoracic kyphosis. No scoliosis. DISCS/SPINAL CANAL/NEURAL FORAMINA: Normal. Normal disc height and morphology. Normal spinal canal and neuroforamina. SPINAL CORD: Normal. Normal in signal and morphology. Normal conus medullaris. SOFT TISSUES: Normal. MRI/Spine Thoracic W/WO Contrast IMPRESSION: Unremarkable MRI of the thoracic spine. No evidence of metastatic disease. Electronically Signed: Rodrigo Lucio MD at 16:38 EST ,
--- NOTE | 2024-01-06 07:44 | MRI_ITS ---
ACR Level 3 findings have been noted. An addendum which confirms receipt of the report will follow. EXAM: MR CERVICAL SPINE WITHOUT AND WITH INTRAVENOUS CONTRAST CLINICAL INDICATION: RUE,RLE numbness,met kidney cancer TECHNIQUE: Multiplanar and multisequence MR images of the cervical spine without and with intravenous contrast were performed. CONTRAST: IV 19 CC CLARISCAN COMPARISON: MR thoracic spine on the same date. FINDINGS: VERTEBRAE: Straightening of the expected cervical lordosis likely in part due to degenerative change with relative retrolisthesis of C3 upon C4 and C4 upon C5. Multilevel facet arthrosis, and endplate osteophytosis, and uncovertebral joint arthrosis. No suspicious marrow space signal abnormality is identified. Multilevel endplate degenerative signal changes. No acute fracture. No traumatic subluxation. Mild pannus surrounding the odontoid with additional degenerative changes at the craniocervical junction and C1-C2 articulations. SPINAL CORD: Focal intramedullary signal abnormality is present at the level of the C3-C4 disc space. No pathologic intramedullary enhancement is present. No additional spinal cord signal abnormality. SOFT TISSUES: No significant abnormality. No prevertebral soft tissue swelling. LYMPH NODES: No significant abnormality. There is no cervical adenopathy. DISCS/SPINAL CANAL/NEURAL FORAMINA: C2-C3: Moderate bilateral facet arthrosis. No disc herniation or spinal canal stenosis. Mild bilateral neural foraminal narrowing. C3-C4: Disc height loss and disc desiccation. Central disc herniation superimposed upon a disc bulge and moderate to severe bilateral facet and uncovertebral joint arthrosis. Ligamentum flavum thickening and/or redundancy contributing to moderate to severe spinal canal stenosis with mass effect upon the spinal cord and subtle intramedullary signal abnormality. There is moderate bilateral neural foraminal narrowing with at least abutment of the bilateral foraminal C4 nerve roots. C4-C5: Disc height loss and disc desiccation. Central disc herniation. Moderate to severe facet and uncovertebral joint arthrosis. Moderate spinal canal stenosis with mild mass effect upon the ventral spinal cord and moderate to severe left as well as mild right neural foraminal narrowing. Left C5 nerve root impingement is likely. C5-C6: Disc height loss and disc desiccation. Right central to foraminal disc herniation and right greater than left facet and uncovertebral joint arthrosis. Mild mass effect upon the right ventral spinal cord. Moderate to severe right and mild left neural foraminal narrowing. Right C6 nerve root impingement is likely. C6-C7: Small central disc herniation superimposed upon a disc bulge and mild bilateral facet and uncovertebral joint arthrosis. Mild spinal canal stenosis and mild bilateral neural foraminal narrowing. C7-T1: Bilateral facet arthrosis and mild endplate osteophytosis. No disc herniation, spinal canal stenosis, or critical neural foraminal narrowing. MRI/Spine Cervical W/WO Contrast IMPRESSION: Multilevel degenerative changes throughout the cervical spine. Moderate to severe multilevel spinal canal and neural foraminal stenosis. Intramedullary signal abnormality at the level C3-C4 is likely secondary to spinal cord impingement at this is the level of worst degenerative changes. Recommend surgical consultation if not already performed. At least abutment of the bilateral C4 nerve roots and likely impingement of the left C5 and right C6 nerve roots. Correlate clinically. Electronically Signed: Moises Henry DO at 23:59 EST ,
[2024-01-06] MEDS: 0.9% Saline Lock 10 ML Syringe IV (09:07)
== END | disposition home or self-care (01) ==
LOC: MRI 07:09
PROVIDERS: PCP Family Medicine; Referring Provider Nurse Practitioner Family; Visit Provider Nurse Practitioner Family
DX: C64.1 Malignant neoplasm of right kidney, except renal pelvis (principal); C79.31 Secondary malignant neoplasm of brain; C78.00 Secondary malignant neoplasm of unspecified lung; R20.0 Anesthesia of skin
CPT/HCPCS: 72156; 72157; A9575; A4216

== ENCOUNTER → 2024-01-13 | Outpatient (CLI) | payer MEDICARE, OTHER, SELFPAY ==
--- NOTE | 2024-01-13 12:34 | CT_ITS ---
STUDY: CT CHEST, ABDOMEN T PELVIS WITH CONTRAST REASON FOR EXAM: Male, 68 years old. Metastatic kidney ca; assess response to treatment RADIATION DOSAGE (If Supplied By Facility): CTDIvol = ( 21.24 ) mGy, DLP = ( 3521.55 ) mGycm TECHNIQUE: Transaxial imaging was performed following intravenous administration of IV 75mL Isovue-300. Individualized dose optimization techniques were used for this CT. COMPARISON: Comparison is made with previous examinations dated back to 03/13/2023. FINDINGS: CHEST Focal pleural-based density in the right middle lobe likely due to scarring. 7 mm left lower lobe nodular density adjacent to left lower lobe pulmonary artery branch which appears to be stable since the previous examinations best seen on axial image 80 series 8. On the previous examinations, it appeared to be part of pulmonary artery branch. The stability of the lesion could reflect benign process. Prominent chronic interstitial changes in the lower lungs. No new infiltrate is seen. No other pulmonary nodules are identified. No evidence of pleural effusions. Normal heart and pericardium. There is severe cardiac enlargement. Right paratracheal nodes are again seen essentially unchanged. No new adenopathy. Normal hilar regions. No evidence of central pulmonary embolism. Atherosclerotic calcifications of the thoracic aorta without evidence of aneurysm. No demonstrated lytic or osteoblastic lesions. ABDOMEN Right lobe liver cyst is again seen unchanged. Additional tiny cyst. No new lesions are identified. Normal gallbladder and extrahepatic biliary system. Normal spleen. Normal pancreas. Normal bilateral adrenal glands. Status post left nephrectomy. Stable right adrenal mass measuring about 4 cm. 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 No evidence of right hydronephrosis Normal visualized stomach. Normal small intestine. No evidence of acute diverticulitis. The appendix is visualized and appears normal. There is diffuse atherosclerotic calcification of the abdominal aorta with elongation and tortuosity, but without a demonstrated aneurysm. Normal inferior vena cava. Normal retroperitoneum. Left lateral abdominal wall hernia containing part of the descending colon without evidence of obstruction unchanged prior exams. Degenerative changes of the spine. PELVIS Circumferential thickening of the bladder wall probably due to underdistention. There is no pelvic fluid. There is no pelvic lymphadenopathy or mass lesion. CT/CT Chest, Abd, Pel w/Contrast IMPRESSION: 1. Chronic changes in the lungs unchanged. 2. Stable 7 mm left lower lobe nodule. 3. Stable right paratracheal adenopathy unchanged 4. No evidence of new metastatic disease. 5. Status post left nephrectomy. 6. Stable solid mass in the right kidney likely malignant until proven otherwise. 7. Additional nonacute changes as described above. 8. Further follow-up exam is needed. Electronically Signed: Corey Conrad MD at 13:53 EST ,
--- OUTSIDE RECORDS SUMMARY | 2024-01-13 14:17 | XMS RPT_ITS | CCD ---
Author Name Unknown Address [address] [place] [address] Organization [facility] Care Team Providers Care Lead Infrastructure Architect Name Role Phone Dick Jacob Robin Primary Care Provider [phone] DICK TAYLOR, DR MARES Primary Care Physician KINSEY HORTON MD Attending Unavailable DICK TAYLOR, DR. MARES Primary Care Unavaila JEANCARLOS Loja Referring Unavailable PETRILLA, JACOB F Primary Care Unavailable Pipera , Jacob Robin Primary Care Provider Dick Jacob F Primary Care Provider Pipera DO, Jacob Robin Primary Care Provider PROVIDER, UNKNOWN Referring Unavailable ANAMIKALLA, JACOB F Primary Care Unavailable PROVIDER, UNKNOWN Referring Unavailable PETRILLA, JACOB F Primary Care Unavailable PETRILLA, JACOB F Primary Care Unavailable PROVIDER, UNKNOWN Referring Unavailable Petrilla DO Jacob Robin Primary Care Provider FRANCOIS LINDSAY Attending Unavailable TIBURCIO, LAURIE Referring Unavailable PETRILLA, JACOB F Primary Care Unavailable FRANCOIS LINDSAY Attending Unavailable JEANCARLOS TAO Referring Unavailable PETRILLA, JACOB F Primary Care Unavailable FRANCOIS LINDSAY Attending Unavailable ANAMIKALLA, JACOB F Primary Care Unavailable PETRILLA, JACOB F Referring Unavailable PETRILLA, JACOB F Primary Care Unavailable FRANCOIS LINDSAY Attending Unavailable ANAMIKALLA, JACOB F Referring Unavailable PETRILLA, JACOB F Primary Care Unavailable FRANCOIS LINDSAY Attending Unavailable TIBURCIO, LAURIE Referring Unavailable PETRILLA, JACOB F Primary Care Unavailable FRANCOIS LINDSAY Attending Unavailable ANAMIKALLA, JACOB F Primary Care Unavailable PETRILLAJACOB F Referring Unavailable PIPERJACOB Saldaña Attending Unavailable DICK, JACOB Primary Care Unavailable EM PAZ Attending Unavailable DICK, JACOB Primary Care Unavailable DICK, JACOB Attending Unavailable DICK, JACOB Primary Care Unavailable ANAMIKAHARISHPiper, JACOB Attending Unavailable ANAMIKAHARISHPiper, JACOB Referring Unavailable ANAMIKAHARISHPiper, JACOB Primary Care Unavailable PINEDA LITTLE Attending Unavailable [facility], JACOB Primary Care Unavailable Medications Current Medications Medication Drug Class(es) Dates Sig (Normalized) Sig (Original) Acetaminophen (4 sources) Start: 05-16-2021 acetaminophen (TYLENOL) tablet 650 mg Completed/Discontinued Medications Medication Drug Class(es) Dates Sig (Normalized) Sig (Original) ALPRAZolam 0.25 mg disintegrating oral tablet (1 source) Benzodiazepine Start: 03-12-2021 End: 03-12-2021 ALPRAZolam (NIRAVAM) dissolvable tablet 0.25 mg amLODIPine 10 mg oral tablet (20 sources) Dihydropyridine Calcium Channel Gage Start: 05-31-2021 End: 07-05-2024 take 1 tablet by mouth once daily amLODIPine (Norvasc) 10 MG tablet Take 1 tablet (10 mg) by mouth daily for 180 doses. 90 tablet 1 07/07/2023 01/07/2024 Discontinued (Reorder) Problems Active Problems Problem Classification Problem Date [...] 05-15-2021 05-27-2015 Chronic Congestive heart failure; nonhypertensive (4 sources) Congestive heart failure; 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: [Heart failure, unspecified] Onset: 01-07-2024 10-22-2022 Chronic Coronary atherosclerosis and other heart disease (20 sources) Coronary arteriosclerosis; 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: [Atherosclerotic heart disease of [place] coronary artery without angina pectoris] Onset: 07-10-2003 05-27-2015 Chronic Deficiency and other anemia (1 source) Iron deficiency anemia due to blood loss 10-17-2022 Chronic Deficiency and other anemia (1 source) Anemia 10-17-2022 Episodic Disorders of lipid metabolism (20 sources) Hypercholesterolemia ; 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: [Pure hypercholesterolemia , unspecified] Onset: 05-15-2021 05-27-2015 Chronic Epilepsy; convulsions (12 sources) Seizure; 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: [Unspecified convulsions] Onset: 01-07-2024 Episodic Esophageal disorders (2 sources) Gastric reflux; 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: [Gastroesophageal reflux disease] 10-17-2022 Chronic Essential hypertension (20 sources) Essential hypertension; 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: [Essential (primary) hypertension] Onset: 11-09-1993 03-29-2018 Chronic Gastritis and duodenitis (2 sources) Chronic gastritis; 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: [Unspecified chronic gastritis without bleeding] 01-07-2024 Chronic Headache; including migraine (1 source) Frequent headache 10-17-2022 Episodic Heart valve disorders (14 sources) Aortic incompetence, non-rheumatic ; 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: [Nonrheumatic aortic (valve) stenosis] Onset: 06-30-2022 10-17-2022 Chronic Maintenance chemotherapy; radiotherapy (1 source) Radiotherapy procedure with explicit context; 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: [Encounter for antineoplastic radiation therapy] Chronic Malignant neoplasm without specification of site (1 source) Malignant adenomatous neoplasm 10-17-2022 Chronic Past or Other Problems Problem Classification Problem Date Documented Date Episodic/Chronic Abdominal hernia (20 sources) Right inguinal hernia ; 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: [Unilateral [...] [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] Onset: 07-21-2023 Episodic Diabetes mellitus with complications (3 sources) Secondary diabetes mellitus; 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: [Diabetes mellitus due to underlying condition with other circulatory complications] Onset: 01-07-2024 Resolved: 01-07-2024 01-07-2024 Chronic Epilepsy; convulsions (3 sources) Epilepsy; 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: [Epilepsy, unspecified, not intractable, without status epilepticus] Onset: 01-07-2024 Resolved: 01-07-2024 01-07-2024 Chronic Other and unspecified benign neoplasm (11 sources) Gastric polyp; 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: [Polyp of stomach and duodenum] Onset: 04-02-2022 08-23-2022 Episodic Other lower respiratory disease (18 sources) Lung mass; 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: [Other nonspecific abnormal finding of lung field] Onset: 01-07-2021 Resolved: 01-07-2024 02-20-2021 Episodic Other nervous system disorders (16 sources) Disorder of brain; 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: [Encephalopathy, unspecified] Onset: 05-15-2021 Resolved: 01-07-2024 Chronic Other nervous system disorders (15 sources) Ataxia; 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: [Ataxia, unspecified] Onset: 05-15-2021 Resolved: 01-07-2024 Episodic Other non-epithelial cancer of skin (20 sources) History of squamous cell carcinoma of skin; 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: [Personal history of other malignant neoplasm of skin] Onset: 05-27-2015 05-27-2015 Episodic Residual codes; unclassified (20 sources) FH: Diabetes mellitus; 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: [Family history of diabetes mellitus] Onset: 05-27-2015 05-27-2015 Episodic Screening and history of mental health and substance abuse codes (3 sources) Ex-smoker; 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: [Personal history of nicotine dependence] Onset: 03-09-2021 01-07-2024 Episodic Substance-related disorders (20 sources) Smoker; 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: [Nicotine dependence, unspecified, uncomplicated] Onset: 05-27-2015 Resolved: 01-07-2024 05-27-2015 Chronic Unclassified (1 source) Long-term current use of drug therapy; 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: [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 and 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] Viral infection (11 sources) Disease caused by 2019-nCoV; 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: [COVID-19] Onset: 12-02-2021 Resolved: 01-07-2024 08-23-2022 Episodic Results Test Name Value Interpretation Reference Range Facil ity Vital Signs Date Time Vital Sign Value Performing Clinician Facility 01-07-2024 13:55-0500 Body height 165.1 cm Jacob Jennings DO Work Phone: [facility] 01-07-2024 13:55-0500 Body mass index (BMI) [Ratio] 35.11 kg/m2 Jacob Jennings DO Work Phone: [facility] 01-07-2024 13:55-0500 Body temperature 99.7 [degF] Jacob Jennings DO Work Phone: [facility] 01-07-2024 13:55-0500 Body weight 95.71 kg Jacob Jennings DO Work Phone: [facility] 01-07-2024 13:55-0500 Diastolic blood pressure 60 mm[Hg] Jacob Jennings DO Work Phone: [facility] 01-07-2024 13:55-0500 Heart rate 77 /min Jacob Jennings DO Work Phone: [facility] 01-07-2024 13:55-0500 SaO2% (BldA) [Mass fraction] 97 % Jacob Jennings DO Work Phone: [facility] 01-07-2024 13:55-0500 Systolic blood pressure 122 mm[Hg] Jacob Jennings DO Work Phone: [facility] 11-24-2023 15:15-0500 Body height 165.1 cm Em Paz PA-C Work Phone: [facility] 11-24-2023 15:15-0500 Body mass index (BMI) [Ratio] 35.11 kg/m2 Em RICEC Work Phone: [facility] 11-24-2023 15:15-0500 Body temperature 98.71 [degF] Em LAZARO-C Work Phone: [facility] 11-24-2023 15:15-0500 Body weight 95.71 kg Em LAZARO-C Work Phone: [facility] 11-24-2023 15:15-0500 Diastolic blood pressure 64 mm[Hg] Em Hewitto PA-C Work Phone: [facility] 11-24-2023 15:15-0500 Heart rate 88 /min Em Hewitto PA-C Work Phone: [facility] 11-24-2023 15:15-0500 SaO2% (BldA) [Mass fraction] 95 % Em Hewitto PA-C Work Phone: [facility] 11-24-2023 15:15-0500 Systolic blood pressure 138 mm[Hg] Em Hewitto PA-C Work Phone: [facility] 08-07-2023 10:14-0400 Body height 165.1 cm Francois Lindsay MD Work Phone: [facility] 08-07-2023 10:14-0400 Body weight 92.3 kg Francois Lindsay MD Work Phone: [facility] 08-07-2023 10:14-0400 Diastolic blood pressure 74 mm[Hg] Francois Lindsay MD Work Phone: [facility] 08-07-2023 10:14-0400 Heart rate 86 /min Francois Lindsay MD Work Phone: [facility] 08-07-2023 10:14-0400 Respiratory rate 20 /min Francois Lindsay MD Work Phone: [facility] 08-07-2023 10:14-0400 SaO2% (BldA) [Mass fraction] 97 % Francois Lindsay MD Work Phone: [facility] 08-07-2023 10:14-0400 Systolic blood pressure 148 mm[Hg] Francois Lindsay MD Work Phone: [facility] 06-09-2023 11:35-0400 Body height 165.1 cm Francois Lindsay MD Work Phone: [facility] 06-09-2023 11:35-0400 Body weight 84.1 kg Francois Lindsay MD Work Phone: [facility] 06-09-2023 11:35-0400 Diastolic blood pressure 64 mm[Hg] Francois Lindsay MD Work Phone: [facility] 06-09-2023 11:35-0400 Heart rate 85 /min Francois Lindsay MD Work Phone: [facility] 06-09-2023 11:35-0400 SaO2% (BldA) [Mass fraction] 94 % Francois Lindsay MD Work Phone: [facility] 06-09-2023 11:35-0400 Systolic blood pressure 132 mm[Hg] Francois Lindsay MD Work Phone: [facility] 05-20-2023 14:02-0400 Body height 165.1 cm Pineda Little MD Work Phone: [facility] 05-20-2023 14:02-0400 Body mass index (BMI) [Ratio] 30.79 kg/m2 Pineda Little MD Work Phone: [facility] 05-20-2023 14:02-0400 Body temperature 98.29 [degF] Pineda Little MD Work Phone: [facility] 05-20-2023 14:02-0400 Body weight 83.92 kg Pineda Little MD Work Phone: [facility] 05-20-2023 14:02-0400 Diastolic blood pressure 60 mm[Hg] Pineda Little MD Work Phone: [facility] 05-20-2023 14:02-0400 Heart rate 87 /min Pineda Little MD Work Phone: [facility] 05-20-2023 14:02-0400 Systolic blood pressure 119 mm[Hg] Pineda Little MD Work Phone: [facility] 05-17-2021 15:29-0400 Body temperature 96.91 [degF] Tono Birch MD [facility] Work Phone: 05-17-2021 15:29-0400 Diastolic blood pressure 88 mm[Hg] Tono Birch MD Work Phone: [facility] Work Phone: 05-17-2021 15:29-0400 Heart rate 71 /min Tono Birch MD Work Phone: [facility] Work Phone: 05-17-2021 15:29-0400 Respiratory rate 18 /min Tono Birch MD Work Phone: [facility] Work Phone: 05-17-2021 15:29-0400 SaO2% (BldA) [Mass fraction] 98 % Tono Birch MD Work Phone: [facility] Work Phone: 05-17-2021 15:29-0400 Systolic blood pressure 168 mm[Hg] Tono Birch MD Work Phone: [facility] Work Phone: 05-15-2021 09:34-0400 Body mass index (BMI) [Ratio] 32.61 kg/m2 Tono Birch MD Work Phone: [facility] Work Phone: 05-15-2021 09:34-0400 Body weight 86.18 kg Tono Birch MD Work Phone: [facility] Work Phone: 03-15-2021 12:00-0400 Heart rate 94 /min Anaid Zee MD Work Phone: [facility] Work Phone: 03-15-2021 12:00-0400 Respiratory rate 16 /min Anaid Zee MD Work Phone: [facility] Work Phone: 05-07-2021 12:00-0400 SaO2% (BldA) [Mass fraction] 94 % Anaid Zee MD Work Phone: [facility] Work Phone: 03-15-2021 11:00-0400 Diastolic blood pressure 63 mm[Hg] Anaid Zee MD Work Phone: [facility] Work Phone: 03-15-2021 11:00-0400 Systolic blood pressure 124 mm[Hg] Anaid Zee MD Work Phone: [facility] Work Phone: 03-15-2021 08:00-0400 Body temperature 97.39 [degF] Anaid Zee MD Work Phone: [facility] Work Phone: 03-15-2021 06:00-0400 Body mass index (BMI) [Ratio] 31.07 kg/m2 Anaid Zee MD Work Phone: [facility] Work Phone: 03-15-2021 06:00-0400 Body weight 82.1 kg Anaid Zee MD Work Phone: [facility] Work Phone: 03-12-2021 10:21-0400 Body height 162.6 cm Anaid Zee MD Work Phone: [facility] Work Phone: 02-20-2021 14:30-0400 BP Diastolic 70 mm[Hg] Sushilace Kristin [facility] Work Phone: 02-20-2021 14:30-0400 BP Systolic 124 mm[Hg] Sushilace Kristin [facility] Work Phone: 02-20-2021 14:30-0400 Pulse (Heart Rate) 70 /min Sushilace Kristin [facility] Work Phone: 02-20-2021 14:30-0400 Pulse Oximetry 94 % Sushilace Kristin [facility] Work Phone: 02-20-2021 14:30-0400 Respiratory Rate 16 [...] Date Encounter Type Care Provider Facility Start: 01-09-2024 [facility] Start: 01-08-2024 Telephone encounter Jacob Robin Luiz stallworth Work Phone: [facility] Family Medicine Procedures Date Procedure Procedure Detail Performing Clinician Start: 01-09-2024 Lipid 1996 panel - S jeremiah or Plasma Jacob Jennings DO Work Phone: Start: 06-06-2023 Mri brain brain stem w/o w/contrast material Laurie Westfall [employer] Work Phone: Start: 01-06-2022 Lipid 1996 panel - S jeremiah or Plasma Pineda Little MD Work Phone: Start: 08-01-2021 Mri brain brain stem w/o w/contrast material Marcie Shay [employer] Work Phone: Start: 05-17-2021 Ecg routine ecg w/le ast 12 lds w/i&r Elidia Morin MD Work Phone: Start: 05-17-2021 Hemoglobin glycosylated a1c Elidia Morni MD Work Phone: Start: 05-16-2021 Speech and language therapy regime Elidia Morin MD Work Phone: Start: 05-16-2021 EEG Celsa Lyles [employer] Work Phone: Start: 05-16-2021 Echo tthrc r-t 2d w/wom-mode compl spec&colr d Celsa Lyles [employer] Work Phone: Start: 05-16-2021 Mri brain brain stem w/o w/contrast material Celsa Lyles [employer] Work Phone: Start: 05-16-2021 Assay of magnesium Smith Morin MD Work Phone: Start: 05-16-2021 BASIC METABOLIC PANE L W/ REFLEX TO MG FOR LOW K Elidia Morin MD Work Phone: Start: 05-16-2021 Radiologic exam abdo men 1 view Elidia Morin MD Work Phone: Start: 05-16-2021 Hemoglobin glycosylated a1c Celsa Lyles [employer] Work Phone: Start: 05-16-2021 Lipid panel Celsa Lyles [employer] Work Phone: Start: 05-15-2021 Blood count complete automated Tono Birch MD Work Phone: Start: 05-15-2021 Speech and language therapy regime Celsa Wingrosalind [employer] Work Phone: Start: 05-15-2021 Ct head/brain w/o [...] Radiologic exam ches t single view Merlene Castro [employer] Work Phone: Start: 03-14-2021 Radiologic exam ches t single view Merlene Castro [employer] Work Phone: Start: 03-13-2021 Radiologic exam ches t single view Merlene Castro [employer] Work Phone: Start: 03-13-2021 Blood count complete automated Merlene Castro APRN - [employer] Work Phone: Start: 03-12-2021 Radiologic exam ches t single view Merlene Montiel [employer] Work Phone: Start: 03-12-2021 OPERATIVE REPORT 3m Sca nning Start: 03-12-2021 Radiologic exam ches t single view Zac Shah APRN [employer] Work Phone: Start: 03-12-2021 Antibody screen Anaid nicholson MD Work Phone: Start: 03-12-2021 Blood typing serologic abo Dawit Valiente DO Work Phone: Start: 03-12-2021 Comprehensive metabo lic panel Dawit Valiente DO Work Phone: Start: 03-12-2021 Ecg routine ecg w/le ast 12 lds w/i&r Zac Shah APRN [employer] Work Phone: Start: 02-20-2021 OPERATIVE REPORT 3m Sca nning Start: 02-20-2021 Radiologic exam ches t single view Jose Miguel Foster Work Phone: Start: 02-14-[address] atten uation skull base mid-thigh Rami Kristin Work Phone: Start: 01-28-2021 CT LUNG SCREENING Yahir Brayharishpiper Work Phone: Start: 01-25-2021 Non-invasive physiol ogic study extremity 3 levls Jacob Jennings Work Phone: Start: 07-13-2020 Duplex scan extracra nial art compl bi study Jacob Jennings Work Phone: Start: 07-15-2019 N-invas physiologic [...] cancer screen colonoscopy Colon cancer screen colonoscopy [place], [place] Start: 02-21-2029 Screening for malignant neoplasm of colon Colon cancer screen colonoscopy [place], [place] Start: 01-06-2027 Lipid 1996 panel - Serum or Plasma Lipid Screening [facility] Start: 01-06-2027 Lipid panel Lipid Screening [facility] Start: 01-08-2025 Lipid panel Lipid Panel [facility] Start: 01-06-2025 Diabetes Screening Diabetes Screening [facility] Start: 07-07-2024 End: 07-07-2024 Patient encounter procedure 07/07/2024 2:00 PM EDT Office Visit [facility] Medicine [address] [place] [address] Jacob Jennings DO [address] [place] [address] [facility] Start: 06-13-2024 Lipid screen Lipid screen [place], [place] Start: 02-22-2024 Colonoscopy COLONOSCOPY [facility] Start: 02-22-2024 COLORECTAL CANCER SCREENING COLORECTAL CANCER SCREENING [facility] Start: 02-22-2024 Screening for malignant neoplasm of colon [facility] Start: 01-07-2024 End: 01-06-2025 Lipid 1996 panel - Serum or Plasma Lipid panel Lab Routine Hypercholesterolemia Expected: 01/07/2024 (Approximate), Expires: 01/06/2025 [facility] Work Phone: Immunizations Immunization Date Immunization Notes Care Provider Fa cility 09-16-2023 Influenza, injectabl e, quadrivalent, preservative free Jacob Jennings DO Work Phone: [facility] 08-09-2022 influenza, high dose seasonal, preservative-free Jacob Jennings DO Work Phone: [facility] 08-09-2022 influenza virus vacc ine, unspecified formulation Pineda Little MD Work Phone: [facility] 12-02-2021 SARS-CoV-2, Unspecified Pineda Little MD Work Phone: [facility] 08-20-2021 influenza virus vacc ine, unspecified formulation Pineda Little MD Work Phone: [facility] 08-20-2021 influenza, injectabl e, quadrivalent, contains preservative Jacob Jennings DO Work Phone: [facility] 02-13-2021 COVID-19, Moderna, P F, 100mcg/0.5mL Marcie Shay [employer] Work Phone: [facility] Work Phone: 02-13-2021 SARS-CoV-2, Unspecified Pineda Little MD Work Phone: [facility] 01-15-2021 COVID-19, Moderna, P F, 100mcg/0.5mL Marcie Shay [employer] Work Phone: [facility] Work Phone: 01-15-2021 SARS-CoV-2, Unspecified Pineda Little MD Work Phone: [facility] 01-02-2020 pneumococcal polysaccharide vaccine, 23 valent [facility] 12-13-2018 pneumococcal conjuga te vaccine, 13 valent [facility] 08-22-2014 influenza virus vacc ine, unspecified formulation [facility] 08-22-2014 influenza, high dose seasonal, preservative-free Marcie Shay SOFTWARE [employer] Work Phone: [facility] Work Phone: 08-22-2014 influenza, seasonal, injectable Jacob Jennings DO Work Phone: [facility] 09-05-2009 pneumococcal polysaccharide vaccine, 23 valent [facility] 08-16-2009 pneumococcal Conjuga te, unspecified formulation Marcie Shay [employer] Work Phone: [facility] Work Phone: 08-16-2009 pneumococcal vaccine , unspecified formulation Jacob Jennings DO Work Phone: [facility] Health Payers Date Payer Category Payer Private Health Insurance [id number] 2021 Private Health Insurance [id number] 2021 Private Health Insurance [id number] 2019 Unknown [employer] [address] [id number] 2019-Present [phone] [address] [place] [address] [id number] 2018 Medicare [id number] 2018 Medicare [id number] 2017 Private Health Insurance [facility] xxxxxxxxx 2017-Present [phone] [address] [place] [address] xxxxxxxxx [id number] 1955 Unknown [id number] Social History Date Type Detail Facility Start: 02-01-1981 End: 03-12-2021 Tobacco smoking status NHIS Current every day smoker [place], [place] Start: 02-01-1981 End: 03-12-2021 History of tobacco use Cigarette Smoker [place] Start: 07-08-2020 End: 11-24-2023 Cigarettes smoked current (pack per day) - Reported [place] Start: 07-08-2020 End: 11-17-2022 Tobacco use and exposure Never used [place] Start: 07-08-2020 End: 01-07-2024 Alcohol intake Current drinker of alcohol (finding) [place] Start: 06-13-2019 End: 05-24-2021 History SDOH Alcohol Frequency 5 [place] Start: 06-13-2019 History SDOH Alcohol Std Drinks 2 [place] Start: 06-13-2019 End: 05-24-2021 History SDOH Alcohol Binge 1 [place] Start: 06-13-2019 History SDOH Social Connections Phone 3 [place] Start: 06-13-2019 History SDOH Physica l Activity DPW 0 [place], [place] Start: 1955 Sex Assigned At Not on file M [place] Start: 05-10-2023 End: 07-07-2023 Exposure to SARS-CoV-2 (event) Not sure [facility] Work [facility]: Start: 06-13-2019 End: 11-24-2023 Alcohol intake Yes [place] Start: 02-20-2021 Alcohol Comment couple beers a day S [employer] Work Phone: Start: 03-12-2021 End: 08-07-2023 Alcohol intake Ex-drinker (finding) [facility] Work Phone: Start: 05-16-2021 End: 11-17-2022 Tobacco smoking status NHIS Former smoker [facility] Start: 02-01-1981 End: 03-12-2021 History of tobacco use Current sm[facility] National Score (1-10 0), lower number is lower risk 63 [facility] Medical Equipment Procedure Code Equipment Code Equipment Origin al Text Equipment Identifier Dates USE TO TEST BLOO D SUGAR 2 TIMES A DAY [id number] Start: 05-07-2023 Goals Date Patient Goal Desired Activity /State Clinical Notes 03-15-2021 to 01-08-2024 Telephone Encounter - Celsa Beba - 01/08/2024 9:17 AM ESTTelephone Encounter - Celsa Maye - 01/08/2024 9:17 AM Viktor Robin AnamikadeanneDO - 01/07/2024 2:00 PM ESTPatient InstructionsInstructions Note Date & Type Note Facility 01-08-2024 Note Referral pended for doctor's signature [facility] [facility] Telephone encounter Note Referral pended for doctor's signature [facility] 01-08-2024 Miscellaneous Notes Referral pended for doctor's signature documented in this encounter [facility] 01-07-2024 Note Addended by: ROSINA CONNOR on: 01/09/2024 10:26 AM Modules accepted: Orders [facility] 01-07-2024 History of Presen t illness Narrative Images from the original note were not included. [facility] [address] [place] [address] [facility] [id number] Visit type: Established Patient Reason for Visit: Follow-up (6 month med check) Assessment / Plan: Kenn was seen today for follow-up. 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 Osei Right carotid bruit History of pulmonary embolism Comments: Discussed CTs at length. Follow-up with hematology on discussion of length of need for Eliquis treatment Prostate cancer screening - PSA Screening; Future - PSA Screening Chronic gastritis without bleeding, unspecified gastritis type Comments: stable, continue omeprazole Other orders - amLODIPine (Norvasc) 10 MG tablet; Take 1 tablet (10 mg) by mouth daily for 180 doses. - carvedilol (Coreg) 25 MG tablet; Take 1 tablet (25 mg) by mouth in the morning and 1 tablet (25 mg) in the evening. Take with meals. - hydrALAZINE (Apresoline) 50 MG tablet; Take 1 tablet (50 mg) by mouth 2 times daily. - rosuvastatin (Crestor) 40 MG tablet; Take 1 tablet (40 mg) by mouth daily for 180 doses. - omeprazole (PriLOSEC) [address] capsule; Take 1 capsule (20 mg) by mouth Daily as needed (reflux). 45 Minutes spent on reviewing pertinent history, patient interview, physical exam, discussion of diagnosis and treatment and work-up options. Subjective: Patient ID: Kenn Iraheta is a 68 y.o. male. HPI hypertensive ex-smoker with history of stable coronary disease, but with unfortunately metastatic lung disease to the brain, and metastatic renal carcinoma to the chest and possible adrenal glands presents for checkup. Past medical records reviewed extensively prior to his evaluation. Overall has done well lately. Off seizure meds after his radiation and chemotherapy to his brain metastasis. Has multiple upcoming appointments with oncology, cardiology, pulmonary , and neurosurgery. Review of Systems a few MRIs this past October showed stable metastatic disease in his brain. Will begin a recheck study in February. No recent confusion headache nausea vomiting. No unilateral numbness of the face arm or legs. No chest pain or palpitations. No use of nitro. No change in mild dyspnea. No cough or wheezing. Has not smoked in almost 3 years. No heartburn or dysphagia. No melena or blood. No constipation diarrhea. Is due for colonoscopy this spring. No bowel changes. No dysuria hematuria. Rare arthralgia. Overall feels pretty positive and upbeat despite his multiple health problems. Only question is whether he needs ongoing Eliquis. Had an asymptomatic pulmonary embolism per CT of the chest in April of last year when he was admitted for pneumonia. Currently on taking Eliquis half a tablet twice a day due to cost and also excessive bruising. Apparently his oncologist does feel he needs it indefinitely. No history of DVT in his legs. Recent CT of the chest showed no pulmonary emboli. No Known Allergies Current Outpatient Medications on File Prior to Visit Medication Sig Dispense Refill apixaban (Eliquis) 5 MG tablet Take 0.5 tablets by mouth in the morning and 0.5 tablets in the evening. dexAMETHasone (Decadron) 1 MG tablet Take 1 mg by mouth 3 times daily. ipratropium-albuterol (Duo-Neb) 0.5-2.5 mg/3 mL nebulizer solution Inhale 3 mL. Lancets (Wallmob Delica Plus [id number]) [facility] USE TO TEST BLOOD SUGAR 2 TIMES A DAY nitroglycerin (Nitrostat) 0.[address] 0.4 mg under the tongue. UltrivaTouch Ultra test strip USE TO TEST BLOOD SUGAR 2 TIMES A DAY pembrolizumab (Keytruda) 100 MG/4ML chemo injection Infuse 200 mg into a venous catheter. Refresh Optive Advanced PF 0.5-1-0.5 % solution Administer 1 drop into both eyes 2 times daily. [DISCONTINUED] amLODIPine (Norvasc) 10 MG tablet Take 1 tablet (10 mg) by mouth daily for 180 doses. 90 tablet 1 [DISCONTINUED] carvedilol (Coreg) 25 MG tablet Take 1 tablet (25 mg) by mouth in the morning and 1 tablet (25 mg) in the evening. Take with meals. 180 tablet 1 [DISCONTINUED] hydrALAZINE (Apresoline) 50 MG tablet Take 1 tablet (50 mg) by mouth 2 times daily. 180 tablet 1 [DISCONTINUED] omeprazole (PriLOSEC) [address] capsule Take 1 capsule (20 mg) by mouth in the morning and 1 capsule (20 mg) in the evening. Do all this for 180 doses. (Patient taking differently: Take 20 mg by mouth Daily as needed.) 180 capsule 1 [DISCONTINUED] rosuvastatin (Crestor) 40 MG tablet TAKE 1 TABLET (40 MG) BY MOUTH DAILY FOR 90 DOSES. 90 tablet 1 [DISCONTINUED] pantoprazole (ProtoNix) 40 MG EC tablet Take by mouth. [DISCONTINUED] prednisoLONE acetate (Pred-Forte) 1 % ophthalmic suspension Please see attached for detailed directions [DISCONTINUED] triamcinolone (Kenalog) 0.1 % cream No current facility-administered medications on file prior to visit. 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) Gastric polyps CAD (coronary artery disease) History of renal carcinoma Hypercholesterolemia History of colon polyps DDD (degenerative disc disease), cervical COPD (chronic obstructive pulmonary disease) (HCC) History of SCC (squamous cell carcinoma) of skin Family history of diabetes mellitus Aortic stenosis, mild PRES (posterior reversible encephalopathy syndrome) Disorder of adrenal gland, unspecified (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) Congestive heart failure, unspecified HF chronicity, unspecified heart failure type (HCC) Obesity, morbid (HCC) Seizure (HCC) History of pulmonary embolism Ex-smoker Social History Tobacco Use Smoking status: Former Packs/day: 1.5 Types: Cigarettes Start date: 02/01/1981 Quit date: 03/12/2021 Years since quittin.8 Smokeless tobacco: Never Substance Use Topics Alcohol use: Yes Alcohol/week: 14.0 standard drinks of alcohol Past Surgical History: Procedure Laterality Date COLONOSCOPY 02/2019 [facility]- small polyp- due 2023 COLONOSCOPY 2013 [facility] CORONARY ANGIOPLASTY WITH STENT PLACEMENT 2003 LUNG REMOVAL, PARTIAL Right 03/12/2021 VATS thoractomy NEPHRECTOMY Left 2006 [facility] OTHER SURGICAL HISTORY 02/20/2021 EBUS/ENB SKIN [...] Amairani Coronary artery disease Father age 50 ND - smoker Coronary artery disease Brother Kaiden age 47 ND Objective: BP 122/60 Pulse 77 Temp 37.6 C (99.7 F) (Temporal) Ht 5' 5 (1.651 m) Wt 211 lb (95.7 kg) SpO2 97% BMI 35.11 kg/m Physical Exam The physical exam is generally normal. Patient appears well, alert and oriented x 3, pleasant, cooperative. Vitals are as noted. No change in right carotid bruit. Reviewed past CTA in 2020 which showed no stenosis. Neck supple, no abnormal adenopathy, thyroid lesions or masses. Ears, nose and throat are normal without acute findings. Lungs are clear to auscultation. Heart is regular, without murmur change. Stable ASA and MR. No gallops or ectopy. Abdomen is soft, obese, non tender, without masses, hepatosplenomegaly, or bruits. Normal BS evident. Extremities are normal without appreciable edema. Peripheral pulses are diminished bilaterally no worrisome skin lesions. Screening neurological exam is normal without focal deficits. documented in this encounter [facility] 01-07-2024 History of Presen t illness Narrative Images from the original note were not included. [facility] [address] [place] [address] [facility] [address] Visit type: Established Patient Reason for Visit: Follow-up (6 month med check) Assessment / Plan: Kenn was seen today for follow-up. 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 Osei Right carotid bruit History of pulmonary embolism Comments: Discussed CTs at length. Follow-up with hematology on discussion of length of need for Eliquis treatment Prostate cancer screening - PSA Screening; Future - PSA Screening Chronic gastritis without bleeding, unspecified gastritis type Comments: stable, continue omeprazole Other orders - amLODIPine (Norvasc) 10 MG tablet; Take 1 tablet (10 mg) by mouth daily for 180 doses. - carvedilol (Coreg) 25 MG tablet; Take 1 tablet (25 mg) by mouth in the morning and 1 tablet (25 mg) in the evening. Take with meals. - hydrALAZINE (Apresoline) 50 MG tablet; Take 1 tablet (50 mg) by mouth 2 times daily. - rosuvastatin (Crestor) 40 MG tablet; Take 1 tablet (40 mg) by mouth daily for 180 doses. - omeprazole (PriLOSEC) [address] capsule; Take 1 capsule (20 mg) by mouth Daily as needed (reflux). 45 Minutes spent on reviewing pertinent history, patient interview, physical exam, discussion of diagnosis and treatment and work-up options. Subjective: Patient ID: Kenn Iraheta is a 68 y.o. male. HPI hypertensive ex-smoker with history of stable coronary disease, but with unfortunately metastatic lung disease to the brain, and metastatic renal carcinoma to the chest and possible adrenal glands presents for checkup. Past medical records reviewed extensively prior to his evaluation. Overall has done well lately. Off seizure meds after his radiation and chemotherapy to his brain metastasis. Has multiple upcoming appointments with oncology, cardiology, pulmonary , and neurosurgery. Review of Systems a few MRIs this past October showed stable metastatic disease in his brain. Will begin a recheck study in February. No recent confusion headache nausea vomiting. No unilateral numbness of the face arm or legs. No chest pain or palpitations. No use of nitro. No change in mild dyspnea. No cough or wheezing. Has not smoked in almost 3 years. No heartburn or dysphagia. No melena or blood. No constipation diarrhea. Is due for colonoscopy this spring. No bowel changes. No dysuria hematuria. Rare arthralgia. Overall feels pretty positive and upbeat despite his multiple health problems. Only question is whether he needs ongoing Eliquis. Had an asymptomatic pulmonary embolism per CT of the chest in April of last year when he was admitted for pneumonia. Currently on taking Eliquis half a tablet twice a day due to cost and also excessive bruising. Apparently his oncologist does feel he needs it indefinitely. No history of DVT in his legs. Recent CT of the chest showed no pulmonary emboli. No Known Allergies Current Outpatient Medications on File Prior to Visit Medication Sig Dispense Refill apixaban (Eliquis) 5 MG tablet Take 0.5 tablets by mouth in the morning and 0.5 tablets in the evening. dexAMETHasone (Decadron) 1 MG tablet Take 1 mg by mouth 3 times daily. ipratropium-albuterol (Duo-Neb) 0.5-2.5 mg/3 mL nebulizer solution Inhale 3 mL. Lancets (OneTouch Delica Plus [id number]) [facility] USE TO TEST BLOOD SUGAR 2 TIMES A DAY nitroglycerin (Nitrostat) 0.[address] 0.4 mg under the tongue. OneTouch Ultra test strip USE TO TEST BLOOD SUGAR 2 TIMES A DAY pembrolizumab (Keytruda) 100 MG/4ML chemo injection Infuse 200 mg into a venous catheter. Refresh Optive Advanced PF 0.5-1-0.5 % solution Administer 1 drop into both eyes 2 times daily. [DISCONTINUED] amLODIPine (Norvasc) 10 MG tablet Take 1 tablet (10 mg) by mouth daily for 180 doses. 90 tablet 1 [DISCONTINUED] carvedilol (Coreg) 25 MG tablet Take 1 tablet (25 mg) by mouth in the morning and 1 tablet (25 mg) in the evening. Take with meals. 180 tablet 1 [DISCONTINUED] hydrALAZINE (Apresoline) 50 MG tablet Take 1 tablet (50 mg) by mouth 2 times daily. 180 tablet 1 [DISCONTINUED] omeprazole (PriLOSEC) [address] capsule Take 1 capsule (20 mg) by mouth in the morning and 1 capsule (20 mg) in the evening. Do all this for 180 doses. (Patient taking differently: Take 20 mg by mouth Daily as needed.) 180 capsule 1 [DISCONTINUED] rosuvastatin (Crestor) 40 MG tablet TAKE 1 TABLET (40 MG) BY MOUTH DAILY FOR 90 DOSES. 90 tablet 1 [DISCONTINUED] pantoprazole (ProtoNix) 40 MG EC tablet Take by mouth. [DISCONTINUED] prednisoLONE acetate (Pred-Forte) 1 % ophthalmic suspension Please see attached for detailed directions [DISCONTINUED] triamcinolone (Kenalog) 0.1 % cream No current facility-administered medications on file prior to visit. 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) Gastric polyps CAD (coronary artery disease) History of renal carcinoma Hypercholesterolemia History of colon polyps DDD (degenerative disc disease), cervical COPD (chronic obstructive pulmonary disease) (HCC) History of SCC (squamous cell carcinoma) of skin Family history of diabetes mellitus Aortic stenosis, mild PRES (posterior reversible encephalopathy syndrome) Disorder of adrenal gland, unspecified (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) Congestive heart failure, unspecified HF chronicity, unspecified heart failure type (HCC) Obesity, morbid (HCC) Seizure (HCC) History of pulmonary embolism Ex-smoker Social History Tobacco Use Smoking status: Former Packs/day: 1.5 Types: Cigarettes Start date: 02/01/1981 Quit date: 03/12/2021 Years since quittin.8 Smokeless tobacco: Never Substance Use Topics Alcohol use: Yes Alcohol/week: 14.0 standard drinks of alcohol Past Surgical History: Procedure Laterality Date COLONOSCOPY 02/2019 [facility]- small polyp- due 2023 COLONOSCOPY 2013 [facility] CORONARY ANGIOPLASTY WITH STENT PLACEMENT 2002 LUNG REMOVAL, PARTIAL Right 03/12/2021 VATS thoractomy NEPHRECTOMY Left 2006 [facility] OTHER SURGICAL HISTORY 02/20/2021 EBUS/ENB SKIN CANCER DESTRUCTION 2011 squamous cell per [facility] UPPER GASTROINTESTINAL ENDOSCOPY [...] Amairani Coronary artery disease Father age 50 ND - smoker Coronary artery disease Brother Kaiden age 47 ND Objective: BP 122/60 Pulse 77 Temp 37.6 C (99.7 F) (Temporal) Ht 5' 5 (1.651 m) Wt 211 lb (95.7 kg) SpO2 97% BMI 35.11 kg/m Physical Exam The physical exam is generally normal. Patient appears well, alert and oriented x 3, pleasant, cooperative. Vitals are as noted. No change in right carotid bruit. Reviewed past CTA in 2020 which showed no stenosis. Neck supple, no abnormal adenopathy, thyroid lesions or masses. Ears, nose and throat are normal without acute findings. Lungs are clear to auscultation. Heart is regular, without murmur change. Stable ASA and MR. No gallops or ectopy. Abdomen is soft, obese, non tender, without masses, hepatosplenomegaly, or bruits. Normal BS evident. Extremities are normal without appreciable edema. Peripheral pulses are diminished bilaterally no worrisome skin lesions. Screening neurological exam is normal without focal deficits. documented in this encounter [facility] 01-07-2024 Miscellaneous Notes Addended by: ROSINA CONNOR on: 01/09/2024 10:26 AM Modules accepted: Orders documented in this encounter [facility] 01-07-2024 Note Addended by: ROSINA CONNOR on: 01/09/2024 10:26 AM Modules accepted: Orders [facility] 11-24-2023 History of Presen t illness Narrative Images from the original note were not included. [facility] [address] [place] [address] [facility] [address] Dept: [phone] Dept Loc: [phone] Visit type: Established Patient Reason for Visit: [...] currently anticoagulated with Eliquis who contacted the [facility] for immediate same-day appointment evaluation for concerns that he has had 3 nosebleeds and having a difficult time getting the bleeding under control. Although he states when he called he was not actively having any bleeding. Patient states he had problems before he is to see an nuclear plant technical advisor at [place] it has been sometime he is to [...] 0.1 % cream Lancets (OneTouch Delica Plus [id number]) [facility] USE TO TEST BLOOD SUGAR 2 TIMES [...] Ramírez, small HH also H/O [facility]- due 2023 History of colon polyps 2000 [facility] History of renal carcinoma 07/[address] Tariq History of SCC (squamous cell carcinoma) of skin 2011 scalp - [facility] Hypercholesterolemia LDL PAD (peripheral artery disease) (HCC) [...] Right adrenal mets , Dr. Cuevas, [facility], [place] oncologist Social History Tobacco Use Smoking status: Former Packs/day: 1.5 Types: Cigarettes Start date: 02/01/1981 Quit date: 03/12/2021 Years since quittin.7 Smokeless tobacco: Never Substance Use Topics Alcohol use: Yes Alcohol/week: 14.0 standard drinks of alcohol Past Surgical History: Procedure Laterality Date [facility]COPY [facility]- due 2023 COLONOSCOPY 2013 [facility] CORONARY ANGIOPLASTY WITH STENT PLACEMENT 2003 LUNG [...] Amairani Coronary artery disease Father age 50 [place] - smoker Coronary artery disease Brother Kaiden age 47 ND Objective BP 138/64 (BP Location: Left arm, [...] prior to signing but minor errors in rn primary care may have occurred. documented in this encounter [facility] 11-24-2023 Telephone encounter Note S: Patient spoke with [facility] nurse regarding nose bleeds B: Onset of [...] known bleeding disorder (e.g., thrombocytopenia) Protocols used: [id number] [facility] 11-24-2023 Miscellaneous Notes S: Patient spoke with [facility] nurse regarding nose bleeds B: Onset of [...] known bleeding disorder (e.g., thrombocytopenia) Protocols used: [id number] documented in this encounter [facility] 11-17-2023 Note HNO ID: [id number] Author: FRANCOIS LINDSAY MD Service: ? Author Type: Physician Type: Progress Notes Filed: 11/17/2023 11:19 Note Text: NEUROSURGERY FOLLOW UP OFFICE NOTE Dr. Francois Lindsay MD, [facility] Date of visit: November 17, 2023 Patient Name: Mr.Larry Linda Iraheta . Date of : 1955 Current Age: [age] year old Sex: male MRN/E# [id number] Last Office Visit: 10/27/2023 CHIEF COMPLAINT: Patient [...] SRS (SBRT) to the metastatic lesion at [place]. Two months following treatment MRI was completed [...] Rodriguez Radiation/ Oncology - Dr. Jeancarlos Tao ([place]) PAIN EVALUATION No data found in the last 1 encounters. PAST MEDICAL HISTORY Diagnosis Date Coronary artery disease Stents History of colon polyps Hypertension Skin cancer PAST SURGICAL HISTORY Proce (more content not included)... [facility] 10-27-2023 Note HNO ID: [id number] Author: Francois Lindsay MD Service: ? Author Type: Physician Type: Progress Notes Filed: 10/27/2023 12:12 PM Note Text: NEUROSURGERY FOLLOW UP OFFICE NOTE Dr. Francois Lindsay MD, FACS Date of visit: October 27, 2023 Patient Name: Mr.Larry Linda Iraheta Sr. Date of : 1955 Current Age: [age] year old Sex: male MRN/E# [id number] Last Office Visit: August 07, 2023 CHIEF [...] SRS (SBRT) to the metastatic lesion at [facility]. Two months following treatment MRI was [...] Oncology Dr. Jeancarlos Tao - Radiation/ Oncologist ([place]) PAIN EVALUATION No data found in the [...] Sig Dispense Refill (more content not included)... [facility] 10-27-2023 Note HNO ID: [id number] Author: Atif Mchugh RT(R) Service: Radiology Author [...] SIGNATURE: RT Guillermo(R) PATIENT NAME: Kenn Iraheta Sr. DATE: October 27, 2023 TIME: 10:18 AM [facility] 10-19-2023 Note HNO ID: [id number] Author: Carin Neri RT(Raphael) Service: Radiology Author Type: Technologist Type: Progress [...] Exam(s) Completed: Head: Routine Brain SIGNATURE: Jasmeet TINOCO(R) PATIENT NAME: Kenn Iraheta Sr. DATE: October 19, 2023 TIME: 7:02 PM [facility] 10-19-2023 History of Presen t illness Narrative [...] Exam(s) Completed: Head: Routine Brain SIGNATURE: Jasmeet TINOCO(R) PATIENT NAME: Kenn Iraheta . DATE: October 19, 2023 TIME: 7:02 PM documented in this encounter [facility] 10-19-2023 Miscellaneous Notes After speaking with patient's , I noticed [facility] (where is was scheduled for MRI on [...] He was seen in the ED at [facility]. They did a CT scan (I called and requested it be pushed to [facility] for us to review). Patient is scheduled [...] She was appreciative. documented in this encounter [facility] 09-08-2023 Miscellaneous Notes I called and spoke to patients regarding the message that was left for patients meds. The patients understood documented in this encounter [facility] 09-08-2023 Miscellaneous Notes Returned call to [...] office phone with any questions or concerns. KALEY Hurtado Neurosurgery Nurse Practitioner [facility] 8:59 AM 09/08/2023 documented in this encounter [facility] 09-03-2023 Miscellaneous Notes Received a call from the patient's Karen. She reported that Kenn was diagnosed with pneumonia and placed on oral prednisone by his pmo lead. She was wondering if he should continue [...] or not. KALEY Hurtado Neurosurgery Nurse Practitioner [facility] 12:44 PM 09/03/2023 documented in this encounter [facility] 08-25-2023 Miscellaneous Notes Spoke to patient via phone. States he is tolerating Decadron 0.5 mg BID. I discussed this with Dr. Lindsay who said that Kenn should stay on this dosage for now. KALEY Hurtado Neurosurgery Nurse Practitioner [facility] 1:13 PM 08/25/2023 documented in this encounter [facility] 08-18-2023 Miscellaneous Notes Contacted the patient [...] in detail. KALEY Hurtado Neurosurgery Nurse Practitioner [facility] 11:55 AM 08/18/2023 documented in this encounter [facility] 08-14-2023 Miscellaneous Notes I returned patients vm and confirmed follow up phone appt on 08/18/23 at 9:30 am documented in this encounter [facility] 08-07-2023 Note HNO ID: [id number] Author: Francois Lindsay MD Service: ? Author Type: Physician Type: Progress Notes Filed: 08/07/2023 10:34 AM Note Text: NEUROSURGERY FOLLOW UP OFFICE NOTE Dr. Francois Lindsay MD, [facility] Date of visit: August 07, 2023 Patient Name: Mr.Larry Linda Iraheta Sr. Date of : 1955 Current Age: [age] year old Sex: male MRN/E# [id number] Last Office Visit: 06/09/2023 CHIEF COMPLAINT: Patient [...] of 2400 cGy in 1 fraction at [facility]. Two months following treatment repeat MRI [...] Oncology Dr. Jeancarlos Tao - Radiation/ Oncologist ([place]) PAIN EVALUATION No data found in the [...] INSTILL 1 DROP (more content not included)... [facility] 08-07-2023 History of Presen t illness Narrative NEUROSURGERY FOLLOW UP OFFICE NOTE Dr. Francois Lindsay MD, FACS Date of visit: August 07, 2023 Patient Name: Mr.Larry Linda Iraheta Sr. Date of : 1955 Current Age: [age] year old Sex: male MRN/E# [id number] Last Office Visit: 06/09/2023 CHIEF COMPLAINT: Patient [...] of 2400 cGy in 1 fraction at [facility]. Two months following treatment repeat MRI [...] Oncology Dr. Jeancarlos Tao - Radiation/ Oncologist ([place]) PAIN EVALUATION No data found in the [...] parietal trigonal area that was treated at [facility] with SRS and presently is on decreasing [...] This note has been partially generated using Asterisk, a speech recognition software program, and may contain errors including punctuation, grammar, spelling, gender, and inappropriate words or phrases that pertain to the system. documented in this encounter [facility] 08-04-2023 Note HNO ID: [id number] Author: Carin Neri RT(R) Service: Radiology Author [...] TYPE: GROUP II PERIPHERAL IV DATA: Ambulatory: fariba forbes RADIOLOGY DEPARTMENT: MR; Exam(s) Completed: Head: Routine Brain SIGNATURE: RT Karis(R) PATIENT NAME: Kenn Iraheta . DATE: August 04, 2023 TIME: 10:56 AM [facility] 07-07-2023 Miscellaneous Notes Contacted patient and spouse via phone. Mr. Iraheta is feeling much better since resuming Dexamethasone 1 mg PO TID. Discussed with Dr. Lindsay who recommends continuing the medication until his scheduled follow up. New Rx sent to pharmacy on file. KALEY Hurtado Neurosurgery Nurse Practitioner [facility] 1:12 PM 07/07/2023 documented in this encounter [facility] 07-03-2023 Miscellaneous Notes Returned call to [...] in detail. KALEY Hurtado Neurosurgery Nurse Practitioner [facility] 1:05 PM 07/03/2023 documented in this encounter [facility] 06-09-2023 Note HNO ID: [id number] Author: Francois Lindsay MD Service: ? Author Type: Physician Type: Progress Notes Filed: 06/09/2023 12:11 PM Note Text: NEUROSURGERY FOLLOW UP OFFICE NOTE Dr. Francois Lindsay MD, FACS Date of visit: June 09, 2023 Patient Name: Mr.Larry Linda Iraheta Sr. Date of : 1955 Current Age: [age] year old Sex: male MRN/E# [id number] Last Office Visit: 05/29/2023 CHIEF COMPLAINT: Patient [...] of 2400 cGy in 1 fraction at [facility]. Two months following treatment repeat MRI [...] a STAT referral for evaluation with a [facility] Neurosurgeon prompting his visit. 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 1. Left posterior parietal - 2400 cGy in 1 fraction ONCOLOGY TREATMENT TEAM: Dr. Angela Rodriguez - Hematology / Oncology Dr. Jeancarlos Tao - Radiation/ Oncologist ([place]) PAIN EVALUATION No data found in the [...] for 1 dose.No (more content not included)... [facility] 06-09-2023 Instructions Laurie Westfall APRN.CNP - 06/09/2023 12:01 PM EDT Decrease Decadron to 1 mg daily for 1 week then, 1/2 mg daily for 1 week then 1/2 mg every other day for 1 week. documented in this encounter [facility] 06-09-2023 History of Presen t illness Narrative NEUROSURGERY FOLLOW UP OFFICE NOTE Dr. Francois Lindsay MD, FACS Date of visit: June 09, 2023 Patient Name: Mr.Larry Linda Iraheta . Date of : 1955 Current Age: [age] year old Sex: male MRN/E# [id number] Last Office Visit: 05/29/2023 CHIEF COMPLAINT: Patient [...] of 2400 cGy in 1 fraction at [facility]. Two months following treatment repeat MRI [...] Oncology Dr. Jeancarlos Tao - Radiation/ Oncologist ([place]) PAIN EVALUATION No data found in the [...] 5/5 Straight leg Neg Neg Ankle dorsiflex 5/5 5/5 Ankle Plantar 5/5 5/5 Heel Walking intact intact Toe Walking [...] left parietal tumor with stereotactic radiosurgery in [place] who presented on his last visit for [...] This note has been partially generated using Asterisk, a speech recognition software program, and may contain errors including punctuation, grammar, spelling, gender, and inappropriate words or phrases that pertain to the system. documented in this encounter [facility] 06-06-2023 Note HNO ID: [id number] Author: Germania Gaines, wireline supervisor Service: Radiology Author Type: Gas Specialist Type: Progress Notes Filed: 06/06/2023 11:02 AM [...] SIGNATURE: NIURKA Martin PATIENT NAME: Kenn Iraheta . DATE: June 06, 2023 TIME: 11:01 AM [facility] 06-06-2023 History of Presen t illness Narrative [...] TIME: 11:01 AM documented in this encounter [facility] 05-29-2023 Note HNO ID: [id number] Author: Francois Lindsay MD Service: ? Author Type: Physician Type: Progress Notes Filed: 05/29/2023 11:32 AM Note Text: NEUROSURGERY CONSULT NOTE Dr. Francois Lindsay MD, FACS Date of visit: May 29, 2023 Patient Name: Mr.Larry Linda Iraheta Sr. Date of : 1955 Current Age: [age] year old Sex: male MRN/E# [id number] Chief Complaint: Patient presents with: New Patient [...] of 2400 cGy in 1 fraction at [facility]. Two months following treatment repeat MRI [...] exam is complete (more content not included)... [facility] 05-27-2023 Miscellaneous Notes Received referral from Dr. Jeancarlos Tao at [facility]. Requesting STAT consult for brain mets. Called patient to discuss scheduling, but had to leave a voicemail. Left my direct contact info and asked that he return my call at his earliest convenience. documented in this encounter [facility] 05-25-2023 Telephone encounter Note Marichuy called back. Re-read voice mail from Sharmin of Dr Baron's note. Marichuy will call back with any other questions or concerns. [facility] 05-25-2023 Miscellaneous Notes Marichuy called back. Re-read voice mail from Sharmin of Dr Baron's note. Marichuy will call back with any other questions or concerns. HUDSON on VM for Marichuy. Dr. Baron reviewed [...] received a voicemail from Marichuy at the [facility] stating that they received a phone call from the patient stating that he saw Dr. Little and his records had not been transferred over for review for his appointment at our office. There is an MRI Brain report from [facility] scanned into media and the fax cover sheet stated that the most recent MRI completed at [facility] was pushed through to PACS. Please verify that records were received and images available from PACS and call Marichuy to confirm. Marichuy can be reached at [phone], option 6 documented in this encounter [facility] 05-22-2023 Telephone encounter Note LM on VM for Marichuy. [facility] 05-22-2023 Miscellaneous Notes LM on VM for [...] received a voicemail from Marichuy at the [facility] stating that they received a phone call from the patient stating that he saw Dr. Little and his records had not been transferred over for review for his appointment at our office. There is an MRI Brain report from [facility] scanned into media and the fax cover sheet stated that the most recent MRI completed at [facility] was pushed through to PACS. Please verify that records were received and images available from PACS and call Marichuy to confirm. Marichuy can be reached at [phone], option 6 documented in this encounter [employer] 05-22-[address] Baron reviewed the MRI. 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 The patient can follow up with oncology as recommended by Dr. Little. [facility] Work Phone: 05-22-2023 Telephone encounter Note LM on Marichuy's VM letting her know that we did receive the mri in pacs. [facility] 05-22-2023 Telephone encounter Note Left message on voicemail asking Marichuy to return my call and left the phone number that I can be reached. [facility]23 Telephone encounter Note Office received a voicemail from Marichuy at the [facility] stating that they received a phone call from the patient stating that he saw Dr. Little and his records had not been transferred over for review for his appointment at our office. There is an MRI Brain report from [facility] scanned into media and the fax cover sheet stated that the most recent MRI completed at [facility] was pushed through to PACS. Please verify that records were received and images available from PACS and call Marichuy to confirm. Marichuy can be reached at [phone], option 6 [facility] 05-20-2023 History of Presen t illness Narrative [...] ago. He has undergone MRI spec at [facility]. 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 Chief Complaint Patient presents with New Patient Brain lesion Past Medical History: Past Medical History: Diagnosis Date Adenocarcinoma of right lung (HCC) 02/2021 Aortic stenosis, mild 06/2002 Bleeding ulcer Brain lesion CAD (coronary artery disease) [address] Mcguire, neg stress test 08/26 at [place] COPD (chronic obstructive pulmonary disease) (HCC) per cxr (smoker) COVID-19 virus infection 10/2021 DDD (degenerative disc disease), cervical NSAID therapy Essential hypertension 1993 Ex-smoker for less than 1 year 03/2021 Family history of diabetes mellitus sister Gastric polyps 12/[address] Ramírez, small HH also H/O colonoscopy 02/2019 [facility]- small polyp- due 2023 History of colon polyps 2000 [facility] History of renal carcinoma 07/[address] Tariq History of SCC (squamous cell carcinoma) of skin 2011 scalp - [facility] Hypercholesterolemia LDL PAD (peripheral artery disease) (HCC) [...] Right adrenal mets , Dr. Cuevas, [facility], [facility] oncologist Past Surgical History: Past Surgical History: Procedure Laterality Date COLONOSCOPY 02/2019 [facility]- small polyp- due 2023 COLONOSCOPY 2013 [facility] CORONARY ANGIOPLASTY WITH STENT PLACEMENT 2002 LUNG REMOVAL, PARTIAL Right 03/12/2021 VATS thoractomy [...] Amairani Coronary artery disease Father age 50 [place] - smoker Coronary artery disease Brother Kaiden age 47 [place] Review of Systems Constitutional: Negative. HENT: Negative. [...] Right achilles: 2+ Left achilles: 2+ Right weld fitter: 2+ Left weld fitter: 2+ Results Labs: Last 24hrs No results [...] reversible encephalopathy syndrome) documented in this encounter [facility] 04-16-2023 Note HNO ID: [id number] Author: Kristal Blakely RN Service: ? Author [...] SIGNATURE: Kristal Blakely RN PATIENT NAME: Kenn Linda Iraheta Sr. DATE: April 16, 2023 TIME: 10:25 AM [facility] 11-11-2022 Note Radiation Oncology Completion of Therapy Note Date: 11/11/2022 Kenn Iraheta U#:[id number] : 1955 Referring Physician: JEANCARLOS TAO Diagnosis: [...] SRS Energy: 10X Dose/Fx (cGy): 2,400 #Fx: 1 / Dose Correction (cGy): 0 Total Dose (cGy): 2,400 Start Date: 10/28/2022 End Date: 10/28/2022 Elapsed Days: 0 [facility] 10-28-2022 Note RADIATION ONCOLOGY PROCEDURE NOTE NAME: Kenn Iraheta U#: [id number] : 1955 DATE: 10/28/2022 DIAGNOSIS: C79.31 - [...] physician s prescription. The physician and medical csr were present throughout the set-up, verification, and [...] by Kinsey Horton MD 10/28/2022 1:38:46 PM [facility] 05-17-2021 Hospital Discharg e tray Julissa Krishna RN - 05/17/2021 5:48 PM EDT Continue [...] at most local grocery stores, pharmacies, and 2can-stores. If you have any questions about your [...] and the need for follow-up with a physician/CONCRETE CARPENTER/PA after discharge. Discussed the patient s personal [...] to not smoke. documented in this encounter [employer] Phone: 05-17-2021 Note [facility] Discharge Summary and Transition Note Kenn [...] R-VATS, R-lobectomy), Stage IV RCC. Presented to [facility] ER 05/15 with complaints of disorientation with [...] - noted on CTA 05/17/21 done in [place] (see Care everywhere) ? # Troponinemia ?- suspect from accelerated BP ?- EKG with mild ST dep -->?trend trop, tele and EKG # CAD # Hyperlipidemia ?- home meds: cilostazol, enalapril, aspirin, statin ? # Lung adenocarcinoma, right (2020) # COPD ?- s/p R-VATS, RL lobectomy ?- on Inlyta (oral chemo) and Keytruda --> hold ?- [facility] [place] [facility], Dr. Rodriguez ? # Stage IV renal cell cancer (R-kidney mass) ?- mets to lung ? # Hyperkalemia ?- recheck after IVF ? # ETOH abuse PROCEDURES: none CONSULTANTS: Neurology DISCHARGE MEDICATIONS: Significant Medication Changes: - STOP Kenn Mora Sr. Home Medication Instructions LUIS:[id number] Printed on:05/17/21 0310 Medication Information aspirin 81 MG EC tablet [...] Complexity: follow up within 7-14 calendar days (17294) [x] Severe Complexity: follow up within 7 calendar days (10494) FOLLOW UP TESTING, PENDING RESULTS OR REFERRALS [...] time frame. DI (more content not included)... [employer] 05-17-2021 History of Presen t illness Narrative Physical Therapy Facility/Department: [facility] 3W TELEMETRY Initial Assessment NAME: Kenn Iraheta Sr. : 1955 Date of Service: 05/17/2021 Discharge Recommendations: Home with assist PRN Assessment Assessment: Pt admitted for Encephalopathy with associated gait abnormality and hypertension. 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 while undergoing [...] Ambulation Assistance: Independent Transfer Assistance: Independent Active Mechanotherapist: Yes Mode of Transportation: Car Occupation: Retired [...] for falls, Gait belt G-Code OutComes Score AM-PAC Score AM-PAC Inpatient Mobility Raw Score : 24 (05/17/211056) AM-PAC Inpatient T-Scale Score : 61.14 (05/17/211056) Mobility Inpatient CMS 0-100% Score: 0 (05/17/211056) Mobility Inpatient CMS G-Code Modifier : CH (05/17/211056) Goals Short term goals Time Frame for Short term goals: discharge Patient Goals Patient goals : to get home Therapy Time Individual Concurrent Group Co-treatment Time In 1032 Time Out 1042 Minutes 10 Transfer Plan of care over to [facility] Physical Therapy staff. This PT wore PPE as per hospital policy Pt wore mask No Bed/chair alarm on prior to session and no alarm after session Kinsey Lucio PT Nutrition rescreen completed. Chart reviewed. Patient to be monitored and followed by the diet gastroenterology technician. HEIDI Dia Speech Language Pathology Patient passed the Nursing Swallowing Screening and is on a Regular diet, Cardiac: Low fat, Low cholesterol. High Fiber, KIMMIE with Thin liquids. Completed speech orders as per stroke protocol. Ginette Hurtado MA, CCC-[employer] 05/17/2021 Images from the original note were not included. [facility] Progress Note Kenn Iraheta . : 1955(65 y.o.) Date: 05/17/21 Subjective: HPI The patient complains of :encephalopathy 65yo M with PMHx HTN, HLP, lung adenocarcinoma (s/p R-VATS, R-lobectomy), Stage IV RCC. Presented to [facility] ER 05/15 with complaints of disorientation with [...] - noted on CTA 05/17/21 done in [place] (see Care everywhere) # Troponinemia - suspect from accelerated BP - EKG with mild ST dep --> trend trop, tele and EKG # CAD # Hyperlipidemia - home meds: cilostazol, enalapril, aspirin, statin # Lung adenocarcinoma, right (2020) # COPD - s/p R-VATS, RL lobectomy - on Inlyta (oral chemo) and Keytruda --> hold - [facility] [place] [facility], Dr. Rodriguez # Stage IV [...] length 6AM-6PM please page: 6PM-6AM please page: [facility] Occupational Therapy Occupational Therapy Initial [...] Ambulation Assistance: Independent Transfer Assistance: Independent Active Mechanotherapist: Yes Mode of Transportation: Car Occupation: Retired [...] Plan Plan Comment: Discharge OT. OutComes Score [facility] Daily Activity Inpatient How much help for putting on and taking off regular lower body clothing?: None How much help for Bathing?: None How much help for Toileting?: None How much help for putting on and taking off regular upper body clothing?: None How much help for taking care of personal grooming?: None How much help for eating meals?: None [facility] Inpatient Daily Activity Raw Score: 24 [facility] Inpatient ADL T-Scale Score : 57.54 ADL [...] from the original note were not included. [facility] Progress Note Kenn Iraheta Sr. : 1955(65 y.o.) Date: 05/16/21 Subjective: HPI The patient complains of :encephalopathy 65yo M with PMHx HTN, HLP, lung adenocarcinoma (s/p R-VATS, R-lobectomy), Stage IV RCC. Presented to [facility] ER 05/15 with complaints of disorientation with [...] - noted on CTA 05/17/21 done in [place] (see Care everywhere) # Troponinemia - suspect from accelerated BP - EKG with mild ST dep --> trend trop, tele and EKG # CAD # Hyperlipidemia - home meds: cilostazol, enalapril, aspirin, statin # Lung adenocarcinoma, right (2020) # COPD - s/p R-VATS, RL lobectomy - on Inlyta (oral chemo) and Keytruda --> hold - [facility] [place] [facility], Dr. Rodriguez # Stage IV [...] length 6AM-6PM please page: 6PM-6AM please page: [facility] PROGRESS NOTE. NEUROLOGY Patient Name:Kenn Iraheta Sr. Patient : 1955 Acct: [id number] Date of Admission: 05/15/2021 Room/Bed: 1325/1325A PCP: Jacob Jennings DO Patient location Telemetry [...] sodium chloride infusion, , Intravenous, Continuous, Celsa Venkata Lyles [employer], Last Rate: 50 mL/hr at 05/15/212011, New Bag at 05/15/212011 sodium chloride flush 0.9 % injection 5-40 mL, 5-40 mL, Intravenous, 2 times per day, Celsa K. Maciejar, [employer] [place], 10 mL at 05/15/212010 sodium chloride flush 0.9 % injection 5-40 mL, 5-40 mL, Intravenous, PRN, Celsa K. Rafal, [employer] [place] 0.9 % sodium chloride infusion, 25 mL, Intravenous, PRN, Celsa K. Maciejar, [employer] acetaminophen (TYLENOL) tablet 650 mg, 650 mg, Oral, Q4H PRN, 650 mg at 05/16/21 0015 OR acetaminophen (TYLENOL) suppository 650 mg, 650 mg, Rectal, Q4H PRN, Celsa K. Maciejar, [employer] aspirin EC tablet 81 mg, 81 mg, Oral, Daily, 81 mg at 05/15/212011 OR aspirin suppository 300 mg, 300 mg, Rectal, Daily, Celsa K. Gebobar, [employer] enoxaparin (LOVENOX) injection 40 mg, 40 mg, Subcutaneous, Daily, Celsa K. Gezzar, [employer], 40 mg at 05/15/212012 rosuvastatin (CRESTOR) tablet 40 mg, 40 mg, Oral, Nightly, Celsa K. Gezzar, [employer] [place], 40 mg at 05/15/212011 labetalol (NORMODYNE;TRANDATE) injection 10 mg, 10 mg, Intravenous, Q4H PRN, Celsa K. Gezzar, [employer] [place] hydrALAZINE (APRESOLINE) injection 20 mg, 20 mg, Intravenous, Q6H PRN, Celsa K. Gezzar, [employer] perflutren lipid microspheres (DEFINITY) injection 1.65 mg, 1.5 mL, Intravenous, ONCE PRN, Celsa K. Gezzar, [employer] [place] sodium chloride flush 0.9 % injection 5-40 mL, 5-40 mL, Intravenous, PRN, Celsa K. Gezzar, [employer] [place] Continuous Infusions: sodium chloride sodium chloride 50 [...] Urine 6.5 5.0 - 8.0 NA Specific [place], Urine >1.030 (A) 1.005 - 1.030 NA [...] eGFR >90.0 >60 mL/min EGFR IF NonAfrican Citizen Of [place] 88.9 >60 mL/min Calcium 8.3 (L) 8.4 [...] - On chemotherapy currently, receives care at [facility] Tobacco abuse - Weed on cessation Please be mindful of seizure [...] update her on above but went to voicemiil. Will attempt to meet her here when [...] Work Phone: 03-15-2021 Note Discharge Summary Kenn Celisjohn Martinez. : 1955 ADMIT DATE: 03/12/2021 DISCHARGE DATE: 03/15/2021 ATTENDING PHYSICIAN: Anaid Zee MD VISIT STATUS: Admission CODE STATUS: Prior DISCHARGE DIAGNOSES: Active Problems: Adenosquamous carcinoma of lung, left (HCC) Resolved Problems: * No resolved hospital problems. * Lung Carcinoma metastatic to peribronchial lymph nodes Obesity BMI 31 HOSPITAL COURSE: Kenn Iraheta is a 65 y.o. male who presented to [facility] on 03/12/2021 For Right VATS, Right Lower [...] was discharged with instructions as follows. CONSULTANTS: na SIGNIFICANT DIAGNOSTIC STUDIES: Pathology DISCHARGE MEDICATIONS: Kenn Iraheta Sr. Home Medication Instructions LUIS:[id number] Printed on:03/22/21 0651 Medication Information aspirin 81 MG EC tablet [...] Jacob Jennings DO in 1-2 weeks SIGNED: Evelio Hernandez MD 03/22/2021, 6:51 AM [facility] 03-15-2021 Hospital Discharg e instructions Evelio [...] pain. -Abdominal distention. documented in this encounter [employer] Work Phone: 03-15-2021 History of Presen t illness Narrative [facility] Respiratory Care Department Progress Note SpO2 [...] Acute Pain Service providers are available via [employer]. Please reference [employer] for Pain Management Provider ACTUARIAL CONSULTANT and direct all questions to the provider listed. Due to the current environment of [place] [address], PPE was worn for the duration of all face to face encounters including but not limited to an N95 in accordance with [facility] and hospital guidelines. 03/15/2021 Referring Physician: Anaid [...] Dr. Mcguire, neg stress test 08/26 at [place] COPD (chronic obstructive pulmonary disease) (HCC) per cxr (smoker) DDD (degenerative disc disease), cervical NSAID therapy Essential hypertension 1993 Family history of diabetes mellitus sister H/O colonoscopy 02/2019 [facility]- small polyp- due 2023 History of colon polyps 2000 [facility], 2013, 2018 History of renal carcinoma 07/2006 Dr. Tariq History of SCC (squamous cell carcinoma) of skin 2011 scalp - [facility] Hypercholesterolemia LDL Mass of right lung 01/2021 Workup for lung nodule clinic pending PAD (peripheral artery disease) (HCC) 07/2019 Rt worse than Lt, pt defering angiogram rec per Dr. Donahue Prostate cancer screening 06/2020 Right carotid bruit 2015 <50% per repeat doppler, 12/26 Right inguinal hernia defers OR Smoker Past Surgical History: Procedure Laterality Date COLONOSCOPY 2013 [facility] COLONOSCOPY 02/2019 [facility]- small polyp- due 2023 CORONARY ANGIOPLASTY WITH STENT PLACEMENT 2002 OTHER SURGICAL HISTORY 02/20/2021 EBUS/ENB OTHER SURGICAL HISTORY 03/12/2021 Right VATS thoracotomy SKIN CANCER DESTRUCTION 2011 squamous cell per Brett TOTAL NEPHRECTOMY Left 2005 [place] Family History Problem Relation Age of Onset Stroke Mother age 77 Coronary Art Dis Mother CABG Lung Cancer Mother Coronary Art Dis Father age 50 [place] - smoker Diabetes Sister Coronary Art Dis Sister CABG No Known Problems Brother Coronary Art Dis Brother age 47 [place] No Known Problems Sister No Known Problems [...] Scheduled APAP 2000mg 3000mg 3 g PRN NURSE TRANSITIONAL (discontinued) 1.8mg 5.7 mg Oxycodone 40 mg Hydromorphone 0 mg Exparel Block Injection date: 03/12/21 Medication : Bupivacaine liposome injectable suspension Location: Erector Spinae/Serratus Plane Side Effects: Denies nausea, headache, constipation, dysgeusia, pyrexia, hypoesthesia, muscle twitching, vomiting, pruritus, dizziness, hypertension, dyspepsia. Assessment / Pain Management Plan: 1. Acute Postsurgical chest pain dc Hydromorphone NURSE TRANSITIONAL. Continue Oxycodone 5 - 10 mg po q4h prn moderate to severe breakthrough pain. Continue Hydromorphone 0.25 mg - 0.5 mg IVP q4h prn moderate to severe breakthrough pain. Please utilize oral medications first. Patient has not required dose overnight. Continue Acetaminophen 1000 mg po TID scheduled ATC. Liver enzymes WNL, last checked: 03/12/21. Start 5 @ 1400 Continue Lidocaine patches x 2. [...] Acute Pain Service providers are available via [employer]. Please reference [employer] for Pain Management Provider ACTUARIAL CONSULTANT and direct all questions to the provider [...] Dr. Mcguire, neg stress test 08/26 at [place] COPD (chronic obstructive pulmonary disease) (HCC) per cxr (smoker) DDD (degenerative disc disease), cervical NSAID therapy Essential hypertension 1993 Family history of diabetes mellitus sister H/O colonoscopy 02/2019 [facility]- small polyp- due 2023 History of colon polyps 2000 [facility], 2013, 2018 History of renal carcinoma 07/2006 Dr. Tariq History of SCC (squamous cell carcinoma) of skin 2011 scalp - [facility] Hypercholesterolemia LDL Mass of right lung 01/2021 Workup for lung nodule clinic pending PAD (peripheral artery disease) (HCC) 07/2019 Rt worse than Lt, pt defering angiogram rec per Dr. Donahue Prostate cancer screening 06/2020 Right carotid bruit 2015 <50% per repeat doppler, 12/26 Right inguinal hernia defers OR Smoker Past Surgical History Past Surgical History: Procedure Laterality Date COLONOSCOPY 2013 [facility] COLONOSCOPY 02/2019 [facility]- small polyp- due 2023 [...] Mother Coronary Art Dis Father age 50 ND - smoker Diabetes Sister Coronary Art Dis Sister CABG No Known Problems Brother Coronary Art Dis Brother age 47 [place] No Known Problems Sister No Known Problems [...] Daily, LEXI Alvarado CNP, 40 mg at 03/14/21 0906 albuterol (PROVENTIL) nebulizer solution 2.5 mg, 2.5 mg, Nebulization, Q4H WA, LEXI Alvarado CNP, 2.5 mg at 03/14/21 1622 polyethylene glycol (GLYCOLAX) packet 17 g, 17 g, Oral, Daily, LEXI Alvarado CNP, 17 g at 03/14/21 0906 sennosides-docusate sodium (SENOKOT-S) 8.6-50 MG tablet 1 [...] plan Lung Nodule S/P Right lower lobectomy 5/4 - maintain water seal - CXR improving [...] This note may have been dictated using [employer] Practice Edition 2.6 and/or INTTRA Voice Recognition Feature. The document was proofread, however unrecognized voice recognition rn primary care errors may be present. Pt walked around unit ( on room air ) pt did well and did not start to de sat until last 5 feet - pt sat down and o2 saturation Returned to 92%and sob went away . .Nutrition rescreen completed. Chart reviewed. Patient to be monitored and followed by the diet gastroenterology technician.HEIDI Fernandes PAGING: The Acute Pain Service providers are available via [employer]. Please reference [employer] for Pain Management Provider ACTUARIAL CONSULTANT and direct all questions to the provider listed. Due to the current environment of [place] [address], PPE was worn for the duration of all face to face encounters including but not limited to an N95 in accordance with CDC and hospital guidelines. 03/14/2021 Referring Physician: Anaid [...] talkative and cooperative throughout exam, controlled with NURSE TRANSITIONAL. Tolerating diet, denies n/v. Pt agreeable to [...] Dr. Mcguire, neg stress test 08/26 at [place] COPD (chronic obstructive pulmonary disease) (HCC) per cxr (smoker) DDD (degenerative disc disease), cervical NSAID therapy Essential hypertension 1993 Family history of diabetes mellitus sister H/O colonoscopy 02/2019 [facility]- small polyp- due 2023 History of colon polyps 2000 [facility], 2013, 2018 History of renal carcinoma 07/2006 Dr. Tariq History of SCC (squamous cell carcinoma) of skin 2011 scalp - [facility] Hypercholesterolemia LDL Mass of right lung 01/2021 Workup for lung nodule clinic pending PAD (peripheral artery disease) ([facility]) 07/2019 Rt worse than Lt, pt defering angiogram rec per Dr. Donahue Prostate cancer screening 06/2020 Right carotid bruit 2015 <50% per repeat doppler, 12/26 Right inguinal hernia defers OR Smoker Past Surgical History: Procedure Laterality Date COLONOSCOPY 2013 [facility] COLONOSCOPY 02/2019 [facility]- small polyp- due 2023 CORONARY ANGIOPLASTY WITH STENT PLACEMENT 2002 OTHER SURGICAL HISTORY 02/20/2021 EBUS/ENB OTHER SURGICAL HISTORY 03/12/2021 Right VATS thoracotomy SKIN CANCER DESTRUCTION 2012 squamous cell per [facility] TOTAL NEPHRECTOMY Left 2005 [place] Family History Problem Relation Age of Onset Stroke Mother age 77 Coronary Art Dis Mother CABG Lung Cancer Mother Coronary Art Dis Father age 50 ND - smoker Diabetes Sister Coronary Art Dis Sister CABG No Known Problems Brother Coronary Art Dis Brother age 47 ND No Known Problems Sister No Known Problems [...] 0700 03/12/202103/13 Scheduled APAP 2000mg 3000mg PRN NURSE TRANSITIONAL 1.8mg 5.7 mg Exparel Block Injection date: 03/12/21 Medication : Bupivacaine liposome injectable suspension Location: Erector Spinae/Serratus Plane Side Effects: Denies nausea, headache, constipation, dysgeusia, pyrexia, hypoesthesia, muscle twitching, vomiting, pruritus, dizziness, hypertension, dyspepsia. Assessment / Pain Management Plan: 1. Acute Postsurgical chest pain dc Hydromorphone NURSE TRANSITIONAL. Order Oxycodone 5 - 10 mg po [...] Acute Pain Service providers are available via [employer]. Please reference [employer] for Pain Management Provider ACTUARIAL CONSULTANT and direct all questions to the provider [...] Dr. Mcguire, neg stress test 08/26 at [place] COPD (chronic obstructive pulmonary disease) (HCC) per cxr (smoker) DDD (degenerative disc disease), cervical NSAID therapy Essential hypertension 1993 Family history of diabetes mellitus sister H/O colonoscopy 02/2019 [facility]- small polyp- due 2023 History of colon polyps 2000 [facility], 2013, 2018 History of renal carcinoma 07/2006 Dr. Tariq History of SCC (squamous cell carcinoma) of skin 2011 scalp - [facility] Hypercholesterolemia LDL Mass of right lung 01/2021 [...] 03/12/2021 Right VATS thoracotomy SKIN CANCER DESTRUCTION 2011 squamous cell per [place] TOTAL NEPHRECTOMY Left 2005 [place] Family History Family History Problem Relation Age of Onset Stroke Mother age 77 Coronary Art Dis Mother CABG Lung Cancer Mother Coronary Art Dis Father age 50 ND - smoker Diabetes Sister Coronary Art Dis Sister CABG No Known Problems Brother Coronary Art Dis Brother age 47 ND No Known Problems Sister No Known Problems [...] ringers infusion, , Intravenous, Continuous, Dawit Valiente, , Stopped at 03/13/21 0802 sodium chloride flush 0.9 % injection 5-40 mL, 5-40 mL, Intravenous, 2 times per day, Merlene Castro APRN - [place] sodium chloride flush 0.9 % injection 5-40 mL, 5-40 mL, Intravenous, PRN, Merlene Castro APRN - [place] 0.9 % sodium chloride infusion, 25 mL, Intravenous, PRN, Merlene Castro APRN - [place] enoxaparin (LOVENOX) injection 40 mg, 40 mg, Subcutaneous, Daily, Merlene Castro APRN - [place], 40 mg at 03/13/21 0939 albuterol (PROVENTIL) nebulizer solution 2.5 mg, 2.5 mg, Nebulization, Q4H WA, Merlene Castro APRN - [place], 2.5 mg at 05/05/21 2018 polyethylene glycol (GLYCOLAX) packet 17 g, 17 g, Oral, Daily, LEXI Alvarado CNP, 17 g at 03/13/21 0938 sennosides-docusate sodium (SENOKOT-S) 8.6-50 MG tablet 1 tablet, 1 tablet, Oral, BID, LEXI Alvarado CNP, 1 tablet at 03/13/212135 ondansetron (ZOFRAN) injection 4 mg, 4 mg, Intravenous, Q6H PRN, LEXI Alvarado CNP acetaminophen (TYLENOL) tablet 1,000 mg, 1,000 mg, Oral, TID, LEXI Atkins CNP, 1,000 mg at 03/13/212135 naloxone (NARCAN) injection 0.4 mg, 0.4 mg, Intravenous, PRN, LEXI Atkins CNP HYDROmorphone (DILAUDID) 30 mg in sodium chloride 0.9 % 30 mL NURSE TRANSITIONAL, , Intravenous, Continuous, LEXI Atkins CNP, Rate [...] This note may have been dictated using [employer] Practice Edition 2.6 and/or [employer] Voice Recognition Feature. The document was proofread, however unrecognized voice recognition rn primary care errors may be present. Images from the [...] CT to water seal, pain controlled with NURSE TRANSITIONAL POD #1: R Vats, LL lobectomy, RML wedge, RUL wedge No changes since seen in clinic. Past Medical History Past Medical History: Diagnosis Date Adenocarcinoma of right lung (HCC) 02/2021 rx pnd CAD (coronary artery disease) [address] Mcguire, neg stress test 08/26 at [place] COPD (chronic obstructive pulmonary disease) (HCC) per cxr (smoker) DDD (degenerative disc disease), cervical NSAID therapy Essential hypertension 1993 Family history of diabetes mellitus sister H/O colonoscopy 02/2019 [facility]- small polyp- due 2023 History of colon polyps 2000 [facility], 2013, 2018 History of renal carcinoma 07/2006 Dr. Tariq History of SCC (squamous cell carcinoma) of skin 2011 scalp - [facility] Hypercholesterolemia LDL Mass of right lung 01/2021 Workup for lung nodule clinic pending PAD (peripheral artery disease) (HCC) 07/2019 Rt worse than Lt, pt defering angiogram rec per Dr. Donahue Prostate cancer screening 06/2020 Right carotid bruit 2014 <50% per repeat doppler, 12/26 Right inguinal hernia defers OR Smoker Past Surgical History Past Surgical History: Procedure Laterality Date COLONOSCOPY 2013 [facility] COLONOSCOPY 02/2019 [facility]- small polyp- due 2023 CORONARY ANGIOPLASTY WITH STENT PLACEMENT 2003 OTHER SURGICAL HISTORY 02/20/2021 EBUS/ENB OTHER SURGICAL HISTORY 03/12/2021 Right VATS thoracotomy SKIN CANCER DESTRUCTION 2012 squamous cell per [facility] TOTAL NEPHRECTOMY Left 2005 [place] Family History Family History Problem Relation Age of Onset Stroke Mother age 77 Coronary Art Dis Mother CABG Lung Cancer Mother Coronary Art Dis Father age 50 ND - smoker Diabetes Sister Coronary Art Dis Sister CABG No Known Problems Brother Coronary Art Dis Brother age 47 ND No Known Problems Sister No Known Problems [...] ringers infusion, , Intravenous, Continuous, Dawit Valiente, , Last Rate: 50 mL/hr at 03/12/21 1051, New Bag at 03/12/21 1051 dextrose 5 % in lactated ringers infusion, [...] in sodium chloride 0.9 % 30 mL NURSE TRANSITIONAL, , Intravenous, Continuous, LEXI Atkins CNP, New Bag at 03/12/21 1803 [START ON 03/16/2021] lidocaine 4 % external patch 2 patch, 2 patch, Transdermal, Daily, Jeannette Marroquin APRN - [place] Labs WBC Date/Time Value Ref Range Status [...] - C&DB poor effort - Pain continue NURSE TRANSITIONAL - placed CT to water seal - [...] This note may have been dictated using [employer] Medical Practice Edition 2.6 and/or [employer]TRA Voice Recognition Feature. The document was proofread, however unrecognized voice recognition rn primary care errors may be present. Pt arrived to PACU from OR. Pt ID verified. Monitors applied with alarms on. Vital signs stable. Called radiology for CXR. Waiting for response. EKG at patient bedside. documented in this encounter [facility] Work Phone: Evaluation + Plan note No data available for this section [facility] documented in this encounter [facility] Work Phone: Evaluation note* Diagnosis Ataxia- Primary Lack of coordination Hypertension, unspecified type Encephalopathy Encephalopathy, unspecified Vision loss Unspecified visual loss Aphasia Seizure (HCC) Other convulsions CAD (coronary artery disease) Coronary atherosclerosis of unspecified type of vessel, [place] or graft Hypercholesterolemia Pure hypercholesterolemia COPD (chronic [...] (HCC) Other convulsions documented in this encounter [facility] Work Phone: Evaluation note* Diagnosis PRES (posterior reversible encephalopathy syndrome)- Primary documented in this encounter [facility] note* Diagnosis 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 documented in this encounter [facility] note* Diagnosis 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- Primary documented in this encounter [facility] note* Diagnosis 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- Primary documented in this encounter [facility] note* Diagnosis Metastatic cancer to brain (HCC)- Primary Secondary malignant neoplasm of brain and spinal cord documented in this encounter [facility] note* Diagnosis 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 documented in this encounter [facility] note* Diagnosis Metastatic cancer to brain (HCC) Secondary malignant neoplasm of brain and spinal cord documented in this encounter [facility] note* Diagnosis Metastatic cancer to brain (HCC)- Primary Secondary malignant neoplasm of brain and spinal cord documented in this encounter [facility] note* Diagnosis Epistaxis- Primary Skin tear of right upper arm without complication, initial encounter Upper respiratory tract infection, unspecified type documented in this encounter [facility] note* Diagnosis Essential hypertension- Primary Unspecified essential hypertension 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) Obesity, morbid (HCC) Morbid obesity Seizure (HCC) Other convulsions Hypercholesterolemia Pure hypercholesterolemia Coronary artery disease involving [place] coronary artery of [place] heart without angina pectoris History of colon polyps Right carotid bruit History of pulmonary embolism Personal history of venous thrombosis and embolism Prostate cancer screening Special screening for malignant neoplasm of prostate Chronic gastritis without bleeding, unspecified gastritis type documented in this encounter [facility] note* Diagnosis Colon cancer screening- Primary Special screening for malignant neoplasms, colon History of colon polyps documented in this encounter [facility] Discharge instructions No data available for this section [facility] Reason for referral (narrative)* Consultation (Routine) - Pending Review Specialty Diagnoses / Procedures Referred By Colt kurtz Referred To Contact Otolaryngology Diagnoses Epistaxis Procedures [place] OFFICE/OUTPATIENT [facility] 60 MINUTES Em Paz PA-C [address] [place] [phone] Referral ID Status Reason Start Date Expiration Date Visits Requested Visits Authorized [id number] Pending Review Specialty Services Required 11/24/2023 11/23/2024 1 1 [facility] for referral (narrative)* Consultation (Routine) - Pending Review Specialty Diagnoses / Procedures Referred By Colt kurtz Referred To Contact Gastroenterology Diagnoses History of colon polyps Colon cancer screening Procedures [place] OFFICE/OUTPATIENT NEW HIGH MDM 60 MINUTES Jacob Jennings DO [address] [place] [address] Gaye Osei [address] [place] [place] [address] Referral ID Status Reason Start Date Expiration Date Visits Requested Visits Authorized [id number] Pending Review Specialty Services Required 01/08/2024 01/07/2025 1 1 [facility] Assessments Diagnosis Right carotid bruit Other symptoms involving cardiovascular system Diagnosis Smoker Tobacco use disorder Diagnosis Claudication of right lower extremity (HCC) Peripheral vascular disease, unspecified Diagnosis Lung mass Swelling, mass, or lump in chest Diagnosis Lung mass Swelling, mass, or lump in chest Advance Directives No Advanced Directives Records FoundDocuments on File Type Date Recorded Patient Financial Services Specialist Expl anation ACP-Advance Directive ACP-Power of Dewatering Filtering Supervisor Documents on File Type Date Recorded Patient Financial Services Specialist Expl anation ACP-Advance Directive ACP-Power of Dewatering Filtering Supervisor Documents on File Type Date Recorded Patient Financial Services Specialist Expl anation Advance Directives and Living Will Power of Dewatering Filtering Supervisor Latest Code Status on File Code Status [...] Smoker Procedures CT lung screen [Initial/Annual] Jacob Jennings , DO [address] [place] [address] Status Reason Specialty Diagnoses / Procedures Referre d By Contact Referred To Contact [facility] Diagnoses Claudication of right lower extremity (HCC) Procedures VL Arterial PVR Lower w Exercise Jacob Jennings , DO [address] [place] [address] Status Reason Specialty Diagnoses / Procedures Referre d By Contact Referred To Contact [facility] Diagnoses Lung mass Procedures PET CT SKULL BASE TO MID THIGH Jose Miguel Foster MD [address] [place] [address] Status Reason Specialty Diagnoses / Procedures Re ferred By Contact Referred To Contact [facility] Diagnoses PRES (posterior reversible encephalopathy syndrome) Seizure (HCC) Procedures MRI BRAIN W WO CONTRAST Marcie Shay APRN - [place] [address] [place] [address] Specialty Diagnoses / Procedures Referred By Contac t Referred To Contact MR IMAGING Diagnoses 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 Procedures MRI BRAIN WO/W IVCON MRI BRAIN BRAIN STEM W/O W/CONTRAST MATERIAL Laurie Westfall, LEXI.[place] [address] [place] [address] Mr Imaging Referral ID Status Reason Start Date Expiration Date V isits Requested Visits Authorized [id number] Closed Auto-Generate d Referral 05/29/2023 06/27/2024 1 1 Referral ID Status Reason Start Date Expiration Date Visits Requested Visits Authorized [id number] Authorized Auto-Generat ed Referral 06/09/2023 07/08/2024 1 1 Specialty Diagnoses / Procedures Referred By Contac t Referred To Contact MR IMAGING Diagnoses Metastatic cancer to brain (HCC) Procedures MRI BRAIN WO/W IVCON MRI BRAIN BRAIN STEM W/O W/CONTRAST MATERIAL Francois Lindsay MD [address] [place] [address] [place] [id number] Referral ID Status Reason Start Date Expiration Date Visits Requested Visits Authorized [id number] Authorized Auto-Generat ed Referral 08/07/2023 09/05/2024 1 1 Specialty Diagnoses / Procedures Referred By Contac t Referred To Contact MR IMAGING Diagnoses Metastatic cancer to brain (HCC) Procedures MRI BRAIN WO/W IVCON MRI BRAIN BRAIN STEM W/O W/CONTRAST MATERIAL Laurie Westfall APRN.[place] [address] [place] [address] [place] [id number] Referral ID Status Reason Start Date Expiration Date Visits Requested Visits Authorized [id number] Pending Review Auto-Generat ed Referral 11/18/2024 1 1 History of Present Illness [...] Appointment Specialty Diagnoses / Procedures Referred By Colt t Referred To Contact MR IMAGING Diagnoses 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 Procedures MRI BRAIN WO/W IVCON MRI BRAIN BRAIN STEM W/O W/CONTRAST MATERIAL Laurie Westfall APRN.[place] [address] [place] [address] Mr Imaging Referral ID Status Reason Start Date Expiration Date V isits Requested Visits Authorized [id number] Closed Auto-Generate d Referral 05/29/2023 06/27/2024 1 1 Reason Comments Established Patient Reason Comments Returning Patient's Call Reason Comments Patient Update Reason Comments Med Refill Reason Comments Refill Request Reason Comments Patient Question Specialty Diagnoses / Procedures Referred By Contac t Referred To Contact MR IMAGING Diagnoses Metastatic cancer to brain (HCC) Procedures MRI BRAIN WO/W IVCON MRI BRAIN BRAIN STEM W/O W/CONTRAST MATERIAL Francois Lindsay MD [address] [place] [address] [place] [id number] Referral ID Status Reason Start Date Expiration Date V isits Requested Visits Authorized [id number] Closed Auto-Generate d Referral 08/07/2023 09/05/2024 1 1 Reason Onset Date Comments Nose Problem 11/24/2023 Reason Comments Epistaxis (Nose Bleed) On Eliquis Reason Comments Follow-up 6 month med check Reason Onset Date Comments Referral 01/08/2024 Dr Osei Scheduled Active and Recently Administ ered Medications (unrecognized section and content) Continuous Medication Order 05/15/2021 05/16/2021 05/17/2021 0.9 % sodium chloride infusion (CANCELED) Intravenous, at 50 mL/hr, CONTINUOUS, Starting on Thu05/15/21 at 1615 2011 (New Bag - Provider: Dahiana Pino RN) PRN Medication Order 05/15/2021 05/16/2021 05/17/2021 [...] Fever, Fever >100.5 (38 C), Starting on Thu05/16/21 at 2002, Do not use if NPO or failed swallow screen. gadobutrol (GADAVIST) injection 8 mL (COMPLETED) 8 mL, Intravenous, IMG ONCE PRN, Other, Starting on Thu05/16/21 at 1036, For 1 dose 1029 (Given [...] line 0435 (Given - Provider: Dahiana Pino, LUPE) ondansetron (ZOFRAN) injection 4 mg 4 mg, [...] 5-40 mL, Intravenous, PRN, Line Care, Per [place] Request, Starting on Thu05/15/21 at 1553, For 72 hours, May use order for Line Care after every IV line use and Agitated Saline Bubble Study. Administration for Bubble Study per missing persons investigator request for only. Remove 1 mL 0.9% [...] (38 C), Starting on Tena 05/16/21 at 2003
Do not use if NPO or failed [...] DATE CREATED AUTHOR AUTHOR'S ORGANIZ ATION 08/31/2021 [facility] DATE CREATED AUTHOR AUTHOR'S ORGANIZ ATION 11/22/2021 [facility] DATE CREATED AUTHOR AUTHOR'S ORGANIZ ATION 12/10/2022 [facility] ([place] DATE CREATED AUTHOR AUTHOR'S ORGANIZ ATION 04/21/2023 [facility] DATE CREATED AUTHOR AUTHOR'S ORGANIZ ATION 10/21/2023 [facility] DATE CREATED AUTHOR AUTHOR'S ORGANIZ ATION 12/10/2023 [facility] DATE CREATED AUTHOR AUTHOR'S ORGANIZ ATION 01/12/2024 [facility] Care Team (unrecognized sect ion and content) Care Team Personnel Name: KINSEY HORTON MD Position: P4 Oncology Provider Member Role: Radiation Oncologist Address: Address: [address] [place] [address] Radiation Oncology [place], [place] [address] Name: JACOB JENNINGS DO Member Role: Primary Care Physician Address: Address: [address] [place] [address] Care Team Related Persons Name: KAREN IRAHETA Address: Home [address] [place] [phone] Care Teams (unrecognized sec tion and content) Lead Infrastructure Architect Relationship Specialty Start Date End Date Jacob Jennings DO [address] [place], [place] [id number] PCP - General 05/28/15 Lead Infrastructure Architect Relationship Specialty Start Date End Date Jacob Jennings DO [address] [place] [id number] PCP - General 05/28/15 Lead Infrastructure Architect Relationship Specialty Start Date End Date DickJacob [address] [place] [address] PCP - General Family Medicine 12/20/18 Lead Infrastructure Architect Relationship Specialty Start Date End Date DickJacob [address] [place] [address] PCP - General Family Medicine 12/20/18 Lead Infrastructure Architect Relationship Specialty Start Date End Date DickJacob [address] [place] [address] PCP - General Family Medicine 12/20/18 Lead Infrastructure Architect Relationship Specialty Start Date End Date Dick Jacob Robin [address] [place] [address] PCP - General Family Medicine 12/20/18 Lead Infrastructure Architect Relationship Specialty Start Date End Date Dick Jacob Robin [address] [place] [address] PCP - General Family Medicine 12/20/18 Lead Infrastructure Architect Relationship Specialty Start Date End Date Jacob Jennings DO [address] [place] [address] PCP - General 05/28/15 Lead Infrastructure Architect Relationship Specialty Start Date End Date Dick Jacob Robin [address] [place] [address] PCP - General Family Medicine 12/20/18 Lead Infrastructure Architect Relationship Specialty Start Date End Date Jacob Jennings [address] [place] [address] PCP - General Family Medicine 12/20/18 Lead Infrastructure Architect Relationship Specialty Start Date End Date Jacob Jennings [address] [place] [address] PCP - General Family Medicine 12/20/18 Lead Infrastructure Architect Relationship Specialty Start Date End Date Jacob Jennings [address] [place] [address] PCP - General Family Medicine 12/20/18 Lead Infrastructure Architect Relationship Specialty Start Date End Date Jacob Jennings, [address] [place] [address] PCP - General Family Medicine 12/20/18 Lead Infrastructure Architect Relationship Specialty Start Date End Date Jacob Jennings, [address] [place], [place] [id number] PCP - General Family Medicine 12/20/18 Lead Infrastructure Architect Relationship Specialty Start Date End Date Jacob Jennings, [address] [place] [phone] PCP - General 05/28/15 Lead Infrastructure Architect Relationship Specialty Start Date End Date Jacob Jennings, DO [address] [place] [phone] PCP - General 05/28/15 Lead Infrastructure Architect Relationship Specialty Start Date End Date Jacob Jennings, DO [address] [place] [phone] PCP - General 05/28/15 Lead Infrastructure Architect Relationship Specialty Start Date End Date Jacob Jennings DO [address] [facility] [address] [place] [phone] PCP - General 05/28/15 Source Comments (unrecognize d section and content) In the event this informatio n is protected by the Federal Confidentiality of Alcohol and Drug Abuse Patient Records regulations: The Federal rules restrict any use of the information to criminally investigate or prosecute any alcohol or drug abuse patient.[facility] the event this information is protected by the Federal Confidentiality of Alcohol and Drug Abuse Patient Records regulations: The Federal rules restrict any use of the information to criminally investigate or prosecute any alcohol or drug abuse patient.[facility] the event this information is protected by the Federal Confidentiality of Alcohol and Drug Abuse Patient Records regulations: The Federal rules restrict any use of the information to criminally investigate or prosecute any alcohol or drug abuse patient.[facility] the event this information is protected by the Federal Confidentiality of Alcohol and Drug Abuse Patient Records regulations: The Federal rules restrict any use of the information to criminally investigate or prosecute any alcohol or drug abuse patient.[facility] the event this information is protected by the Federal Confidentiality of Alcohol and Drug Abuse Patient Records regulations: The Federal rules restrict any use of the information to criminally investigate or prosecute any alcohol or drug abuse patient.[facility] the event this information is protected by the Federal Confidentiality of Alcohol and Drug Abuse Patient Records regulations: The Federal rules restrict any use of the information to criminally investigate or prosecute any alcohol or drug abuse patient.[facility] the event this information is protected by the Federal Confidentiality of Alcohol and Drug Abuse Patient Records regulations: The Federal rules restrict any use of the information to criminally investigate or prosecute any alcohol or drug abuse patient.[facility] the event this information is protected by the Federal Confidentiality of Alcohol and Drug Abuse Patient Records regulations: The Federal rules restrict any use of the information to criminally investigate or prosecute any alcohol or drug abuse patient.[facility] the event this information is protected by the Federal Confidentiality of Alcohol and Drug Abuse Patient Records regulations: The Federal rules restrict any use of the information to criminally investigate or prosecute any alcohol or drug abuse patient.[facility] the event this information is protected by the Federal Confidentiality of Alcohol and Drug Abuse Patient Records regulations: The Federal rules restrict any use of the information to criminally investigate or prosecute any alcohol or drug abuse patient.[facility] the event this information is protected by the Federal Confidentiality of Alcohol and Drug Abuse Patient Records regulations: The Federal rules restrict any use of the information to criminally investigate or prosecute any alcohol or drug abuse patient.[facility] the event this information is protected by the Federal Confidentiality of Alcohol and Drug Abuse Patient Records regulations: The Federal rules restrict any use of the information to criminally investigate or prosecute any alcohol or drug abuse patient.[facility] the event this information is protected by the Federal Confidentiality of Alcohol and Drug Abuse Patient Records regulations: The Federal rules restrict any use of the information to criminally investigate or prosecute any alcohol or drug abuse patient.[facility] the event this information is protected by the Federal Confidentiality of Alcohol and Drug Abuse Patient Records regulations: The Federal rules restrict any use of the information to criminally investigate or prosecute any alcohol or drug abuse patient.[facility] the event this information is protected by the Federal Confidentiality of Alcohol and Drug Abuse Patient Records regulations: The Federal rules restrict any use of the information to criminally investigate or prosecute any alcohol or drug abuse patient.[facility] the event this information is protected by the Federal Confidentiality of Alcohol and Drug Abuse Patient Records regulations: The Federal rules restrict any use of the information to criminally investigate or prosecute any alcohol or drug abuse patient.[facility] FOR RECORDS PERTAINING TO PATIENTS WHO [...] BE BASED ON THE PRIMARY CLINICAL RECORDS. [facility] [employer] [facility]. provides no warranty or guarantee of the accuracy or completeness of information in this document.
== END | disposition home or self-care (01) ==
LOC: CT 12:34
PROVIDERS: PCP Family Medicine; Referring Provider Nurse Practitioner Family; Visit Provider Nurse Practitioner Family
DX: C78.00 Secondary malignant neoplasm of unspecified lung (principal); C64.1 Malignant neoplasm of right kidney, except renal pelvis
CPT/HCPCS: 71260; 74177; Q9967

== ENCOUNTER → 2024-02-25 | Outpatient (CLI) | payer MEDICARE, OTHER, SELFPAY ==
[2024-02-25 18:23] LABS: Hemoglobin A1c 5.6 % (3.8-5.6)
== END | disposition home or self-care (01) ==
LOC: MTLAB 14:11
PROVIDERS: PCP Family Medicine; Referring Provider Orthopaedic Surgery Orthopaedic Surgery of the Spine; Visit Provider Orthopaedic Surgery Orthopaedic Surgery of the Spine
DX: E11.9 Type 2 diabetes mellitus without complications (principal)
CPT/HCPCS: 36415; 83036

== ENCOUNTER 2024-03-08 14:38 | Observation (INO) | payer MEDICARE, OTHER, SELFPAY ==
--- NOTE | 2024-03-01 08:31 | EKG12_ITS ---
Test Reason : PRE-OP Blood Pressure : / mmHG Vent. Rate : 075 BPM Atrial Rate : 075 BPM P-R Int : 192 ms QRS Dur : 084 ms QT Int : 400 ms P-R-T Axes : 044 002 043 degrees QTc Int : 446 ms Normal sinus rhythm Normal ECG Confirmed by HAILE BAUTISTA, VIANEY ([id number]), editor index MATHEW VORA ([id number]) on 03/07/2024 1:32:00 PM Referred By: Greg Sutherland Confirmed By:ZOILA BE MD
[2024-03-01 11:33] LABS: HIV - WCH Non-Reactive (Nonreactive); Hepatitis B Surface Antibody Non-Reactive; Hepatitis C Antibody Non-Reactive (Nonreactive)
[2024-03-02 06:10] LABS: Hepatitis A AB, Total Negative (Negative)
[2024-03-08] VITALS (13 sets, daily range): BP systolic 109–149; BP diastolic 62–104; PULSE 66–86; RESP 16–18; TEMP 36.5–37.1; O2SAT 92–99; BMI 35.1
[2024-03-08] MEDS: Lactated Ringers 1,000 ML 15 ML IV (10:15)
[2024-03-08] MEDS: Magnesium 1 GM over 15 mins IV (10:30)
[2024-03-08] MEDS: Acetaminophen 500 MG Tablet 1000 MG PO ×2 (10:30→21:29)
[2024-03-08] MEDS: dexAMETHasone 4 MG/ML Vial IV ×3 (10:41→23:19)
--- NOTE | 2024-03-08 10:43 | HP.PCM_ITS ---
History and Physical Date of Admission: 03/08/24 MR#: [id number] Acct: [id number] Name: STEVEN IRAHETA Rep #: [id number] : 1955 Provider: Dr. Greg Sutherland MD Age/Sex: 68/M Location: [facility] [place] Status: Signed Intake Vital Signs 02/09/2411:42 Height 5 ft 5 in Intake Visit Reasons: cervical spine Accompanied by: Is patient in pain?: No Allergies No Known Allergies Allergy (Verified 03/01/24 09:27) Medications rosuvastatin 40 mg tablet (Crestor) 40 mg PO DAILY CHOLESTEROL 08/18/18 [History Confirmed 03/01/24] carvedilol 25 mg tablet 25 mg PO BID blood pressure 04/30/21 [History Confirmed 03/01/24] albuterol sulfate 90 mcg/actuation aerosol inhaler 1 puff inhalation Q6H PRN SOB 05/31/21 [History Confirmed 03/01/24] hydralazine 50 mg tablet 50 mg PO BID diuretic 05/31/21 [History Confirmed 03/01/24] lidocaine-prilocaine 2.5 %-2.5 % topical cream 1 applic topical ONCE PRN Port access 30 days #30 grams 01/28/22 [Rx Confirmed 03/01/24] apixaban 5 mg tablet (Eliquis) 2.5 mg (1/2 x 5 mg) PO BID #60 tabs 07/20/23 [Rx Confirmed 03/01/24] amlodipine 10 mg tablet 10 mg PO DAILY Check with primary doctor #90 tabs 08/21/23 [Rx Confirmed 03/01/24] ipratropium 0.5 mg-albuterol 3 mg (2.5 mg base)/3 mL nebulization soln 3 ml inhalation Q4H PRN shortness of breath or wheezing #180 mL 09/07/23 [Rx Confirmed 03/01/24] dexamethasone 1 mg tablet 0.5 mg PO DAILY 11/18/23 [History Confirmed 03/01/24] pantoprazole 40 mg tablet,delayed release (Protonix) 40 mg PO BID PRN GERD 12/04/23 [History Confirmed 03/01/24] pembrolizumab 50 mg intravenous solution mg .Route 03/01/24 [History Confirmed 03/01/24] [facility] Medical History Abnormal colonoscopy Adenocarcinoma of right lung Anemia Atherosclerotic heart disease of [place] coronary artery without angina pectoris 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 Cardiology follow-up encounter Cervical spinal cord injury Cervical stenosis of spine Contact with or suspected exposure to other viral communicable disease COPD (chronic obstructive pulmonary disease) COPD (chronic obstructive pulmonary disease) COVID-19 Diabetes mellitus, type 2 Diarrhea Duodenal ulcer Dyspnea Elevated troponin (05/15/21) Encephalopathy (05/15/21) Encounter for immunotherapy Encounter for immunotherapy Epistaxis Essential (primary) hypertension Former smoker Frequent headaches Gastric reflux History of echocardiogram History of edema History of pain when walking History of primary malignant neoplasm of left kidney History of steroid therapy Hx of radiation therapy Hyperglycemia Hyperlipidemia Hypokalemia Hyponatremia Imbalance Iron deficiency anemia due to chronic blood loss Low iron 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 Nonrheumatic aortic (valve) stenosis with insufficiency Numbness in right leg Pneumonia Port-A-Cath in place Pulmonary emboli RUE numbness Seizure (05/15/21) Seizures Shortness of breath on exertion Sinus congestion Skin cancer Thrombocytopenia Wears dentures Wears glasses Surgical History History of cataract surgery History of coronary angioplasty (01/05/04) History of coronary artery stent placement (07/17/03) History of lobectomy of lung History of nephrectomy, left Family History Sister Diabetes CAD (coronary artery disease)Mother CVA (cerebral vascular accident) CAD (coronary artery disease) Lung cancerFather CAD (coronary artery disease)Brother CAD (coronary artery disease) Social History Smoking Status: Former smoker Tobacco: How many years used: 40 second hand exposure: No alcohol intake: current alcohol intake frequency: a few times a month Alcohol type: beer substance use type: does not use seatbelt use: always do you feel safe at home: Yes HPI cervical spine Details: This documentation accurately reflects the service provided and the decisions made by me, Dr. Greg Sutherland MD 03/01/24923. Part of today?s visit was documented by Sherry H RMA , acting as scribe. STEVEN IRAHETA is a 68 year old M here today for a pre-op. Patient is having a Anterior Cervical disc Fusion C3-4,C4-5 on 03/08/24. Patient is still numbness in his fingers. Steven continues to have severe numbness in his right upper and right lower extremities. He is here for his preop visit. His A1c from last week was 5.6. Following his his previous history: 02/25/24: STEVEN IRAHETA is a 68 year old M here today for neck pain. He would like to discuss surgery today. He states that his neck pain and numbness down the right side has gotten worse. Pt. states that he had an MRI on 02/15/24 at [facility] in [place] of his brain. Steven Is here for follow-up. He was seen by me about a month ago and has found that he has worsening numbness into his right upper and right lower extremities has significantly worsened since he last saw me.Is looking forward to schedule surgery. He is on Keytruda, oral steroids and Eliquis. His recent follow-up with his neurosurgeon regarding his brain lesion was encouraging as this lesion has not worsened in his most recent MRI. Following his his previous history: 01/15/24: STEVEN IRAHETA is a 68 year old M here today for evaluation of right natalia ed bilateral upper and low extremity numbness. He denies any neck or back pain. He states this has been going on since October when he fell. He fell because of lower extremity weakness. He did not seek medical care after his fall. He landed on his right side and states he fell on his shoulder. He states the numbness has progressively been getting worse. He denies any surgery to his neck and back. He has not done PT and has never seen pain management. Steven denies any axial neck pain or radicular symptoms. He also does not have any back pain. He has had a long history with oncology which started with finding of lung carcinoma which was treated with resection, and then he had a finding of metastasis to the brain which was treated with steroids, and then likely tumor in the left kidney which was removed with nephrectomy, and also has a lesion in the right kidney now for which she is being treated with Keytruda which is immunotherapy. He also underwent radiation for the brain malignancy about a year ago which shows just a single time episode. He had a fall in October and he fell towards the right shoulder. Since then he has had numbness in the right upper and right lower extremities. He is also noticed some stumbling balance but does not seem to be bothered by it significantly. He denies any dexterity issues or dropping things from his hand. He is a diabetic with last A1c of 7.4 in the chart from April 2023. Ortho Exam General General: Yes no acute distress Neurologic: Yes alert and Yes oriented x3 Spine SPINE TESTING CERVICAL THORACIC LUMBAR Musculoskeletal Strength 0=absent - 5=normal Details: Examination of the neck shows no tenderness. Neurologic motion upper and lower extremity shows 5 x 5 power in all muscles normal sensations in all dermatomes. Matt's is positive. Knee reflexes are brisk. Romberg's is positive. Gait shows imbalance. No clonus. Coding Level of Care Code Off vis,est,level 4 Diagnoses Cervical myelopathy G95.9 Time Spent (min) 35 Assessment and Plan Assessment and Plan (1) Cervical myelopathy: Status: Acute Plan I again reviewed his x-rays and MRI done recently. X-rays and MRI of cervical spine show multilevel disc degeneration especially between C3-4, C4-5 and C5-6 with disc height loss, retrolisthesis and vacuum phenomenon. At C3-4 there is severe cord compression with cord signal changes. Moderate stenosis noticed at C4-5 and mild at C5-6. Thoracic MRI does not show any cord compression. No obvious spinal lesions suspected of malignancy or metastasis have been reported on MRIs. I again explained to him the imaging findings in detail. Explained to him that cord compression and myelomalacia indicative of cervical myelopathy. He has developed balance issues and hyperreflexia suggestive of myelopathy. This may overlap with some of the symptoms that may be associated with the brain lesion with metastasis. If the brain lesion has improved with time, per patient's own report, it is likely that the cervical cord compression is causing him the residual balance issues. If there is progression of his balance and dexterity issues, the cervical lesion may benefit from cervical decompression surgery. Patient however has multiple medical issues and is on medical treatment with Keytruda, oral steroids, Eliquis, all of which would need to be temporarily stopped prior to any cervical spine surgery can be contemplated. Patient wishes to proceed with surgery. C3-5 ACDF was discussed in detail. Explained to him the surgery would halt the progression of myelopathy but he still might have some residual symptoms. Patient has certainly shown progression over the last few weeks of right upper extremity and right lower extremity numbness. All risk benefits and alternatives of the surgery was discussed in detail. The risks include but are not limited to infection, bleeding, hematoma formation, injury to nerves and vessels, dysphagia, dysphonia, need for the surgery, spinal cord injury, nerve root injury, persistent weakness, persistent numbness, adjacent segment degeneration, pseudoarthrosis, hardware failure, pneumonia, atelectasis, DVT, pulmonary embolism, need for ICU, need for ventilator, stroke, cardiopulmonary event. Patient would like to omit his next dose of Keytruda on Thursday so he can schedule surgery on an urgent basis. He will also stop Eliquis perioperatively. All restrictions after surgery were discussed in detail. Patient was in agreement. Consent was signed.
--- NOTE | 2024-03-08 11:00 | RAD_ITS ---
STUDY: X-RAY - CERVICAL SPINE REASON FOR EXAM: Male, 68 years old. Anterior fusion. Intraoperative digital documentation views. TECHNIQUE: 8 intraoperative digital documentation view(s) of the cervical spine were obtained. COMPARISON: Cervical spine x-rays dated January 15, 2024 FINDINGS: 8 intraoperative digital documentation views show anterior fusion from C3 to C5. RAD/Cerv Spine 2 or 3 Views IMPRESSION: Intraoperative digital documentation views. Electronically Signed: Marshall Minaya MD at 15:11 EDT ,
[2024-03-08 11:09] LABS: Bedside Glucose 103 mg/dL (74-106)
[2024-03-08] MEDS: Cefazolin 2 GM in 0.9% Normal Saline (100mL Bag) 100 ML IV ×2 (11:40→19:56)
--- NOTE | 2024-03-08 14:44 | OP.PCM_ITS ---
Report of Operation Date of Procedure: 03/08/24 Description of Surgical Findings:: Preoperative diagnosis: C3-5 disc degeneration, stenosis, myelopathy Postoperative diagnosis: Same Name of procedure: C3-5 anterior cervical discectomy and fusion with plate instrumentation - Anterior cervical fusion C3-4, CPT code 13141 - Anterior plate instrumentation C3-5, CPT code 70472/59 - Anterior cervical fusion C4-5, CPT code 66904/51 -C3-4 structural allograft bone with DBX, CPT code 43217 -C4-5 structural allograft bone with DBX, CPT code 80086 -Demineralized bone matrix and DBX, CPT 26789 Attending surgeon: Greg Sutherland M.D. Anesthesia: Gen. endotracheal Estimated blood loss: 50 mL Complications: None Instrumentation used: Medtronic [place] Elite plate, LASR corticocancellous block Indications: The patient is a pleasant 68-year-old gentleman who presented with neck pain right upper and right lower extremity numbness, difficulty with dexterity and balance. MRI showed C3-5 disc degeneration with stenosis with cord signal changes. In order to halt the progression of myelopathy, the patient requested surgical treatment. All risks and benefits of the procedure were explained to the patient. The risks include but are not limited to infection, bleeding, injury to nerves and vessels, vertebral artery injury, spinal cord injury, paralysis, vocal cord paralysis, injury to esophagus, pseudoarthrosis, need for further procedures, adjacent segment degeneration. Procedure: The patient was identified in the preoperative suite using unique patient identifiers. Skin was marked consent was taken and all questions were answered. The patient was then brought back to the operative room and a timeout was performed. General endotracheal anesthesia was given. Intraoperative neuro monitoring leads were applied. The patient was carefully positioned supine on a regular OR table. A lateral view with a C-arm was done to identify the level and to define the incision. The anterior neck was then prepped and draped in the usual fashion. A final timeout was then performed. A transverse skin incision was taken to the left of midline. Subcutaneous tissue was then divided with Bovie. Platysma was identified and cut along the incision with scissors. The fascial interval between the sternocleidomastoid and the larynx was developed. Omohyoid was identified and retracted. The esophagus with the larynx was retracted medially to reach the prevertebral fascia. Marker x-ray was performed with bent spinal needle and disc space and levels were confirmed. Longus coli muscle was elevated on both sides at and above and below C3-5 discs. Self-retaining retractors were then placed. A long handle knife was then used to perform annulotomy at C3-4. Disc fragments were removed with the pituitary. Mansfield pins were placed in C3 and C4 for disc distraction. Curettes and bur was utilized to remove cartilage from the endplates. Discectomy was performed laterally up to the uncovertebral joints. Posterior osteophytes were thinned down with the bur and adequate decompression in the central and foraminal areas were performed and PLL was thinned out. Once the disc space was prepared, trials of various sizes were utilized. Thorough irrigation was given. 6 mm LASR cortical cancellous allograft bone la rge footprint was then fashioned in such a way that concavities were burred out inferiorly and superiorly and half cc of DBX (demineralized bone matrix) was squeezed into the cancellous portion. The graft was then inserted into the C3-4 disc space. The retractors were then repositioned and the procedure was repeated for C4-5 disc with complete discectomy. Graft size was 6 mm at with large footprint at C4-5. The grafts were found to be in good apposition with good pullout strength. A 42 mm Medtronic Kirkwood Elite plate was then fixed to C3-5 with 16 mm screws. A lateral x-ray was then taken to check the length of the screws. Both AP and lateral x-rays showed good positioning of plate and screws. The locking mechanism over the screw heads was then turned. Thorough irrigation was again given. Hemostasis was achieved. A [place] drain was then inserted. Closure was done with 3-0 Vicryl for the platysma and subcutaneous tissue layers and 4-0 Monocryl for the skin. Closure was done around the drain. Steri-Strips were applied and dressing was done with 4 x 4 gauze and Tegaderm. A cervical collar was then applied. The patient was then woken up from anesthesia extubated and taken to PACU in stable condition. From here, the patient will be transitioned to the floor. Intraoperative neuro monitoring was performed throughout this procedure. Motor evoked potentials were run periodically. All potentials remained at baseline throughout the procedure. I was present for the entire surgery and performed the surgery myself. Procedures Musculoskeletal [id number]: Other Procedure See Report
--- NOTE | 2024-03-08 16:08 | CON.PCM.HO_ITS ---
Assessment & Plan Assessment/Plan (1) Essential hypertension: (2) Cervical myelopathy: PLAN: Plan 1. C3-C5 disc degeneration and stenosis with myelopathy that was treated with a C3-C5 anterior cervical discectomy and fusion with plate instrumentation in an effort to halt progression of his myelopathy - Continue current management. 2. History of tobacco abuse; with subsequent COPD and history of RLL lobectomy - Stable with no evidence of flare. Continue as needed nebulizers. 3. History of Left renal cell carcinoma; with metastases to lung, adrenal gland and brain - Noted. 4. Essential hypertension - Continue home medications as previous plus give as needed IV hydralazine for systolic blood pressure greater than 160 mmHg. 5. Hyperlipidemia - Resume statin. 6. Obesity; with BMI of 35.1 this admission - Weight loss will be recommended. 7. CAD; status post stent (2002) - Stable. Home regimen to continue. 8. Chronic anemia - Stable. 9. GERD - Resume PPI. 10. Osteoarthritis - Stable. Give Tylenol as needed. 11. History of COVID-19 - Noted. 12. DVT prophylaxis - As per orthopod. Total time: Approximately 35 minutes. HPI Consult Data Date of Consult: 03/08/24 HPI Narrative Reason for Consultation: Medical management HPI Narrative: KENN IRAHETA, is a 68 M with a past medical history of essential hypertension, hyperlipidemia, obesity; with BMI of 35.1 this admission, CAD; status post stent (2002), history of Left renal cell carcinoma; with metastases to lung, adrenal gland and brain, chronic anemia, GERD, osteoarthritis, history of COVID-19 and history of tobacco abuse; with subsequent COPD and history of RLL lobectomy who was admitted to the orthopedic-spine service of Dr. Sutherland with a preoperative diagnosis of C3-C5 disc degeneration and stenosis with myelopathy that was treated with a C3-C5 anterior cervical discectomy and fusion with plate instrumentation in an effort to halt progression of his myelopathy. The patient tolerated procedure well and there were postoperative orders for hospitalist consultation for medical management. There is no report of fever, chills, nausea, vomiting or other significant complaints at this time. Thank you for allowing us to participate in care of your patient. [facility] Medical History Abnormal colonoscopy Adenocarcinoma of right lung Anemia Atherosclerotic heart disease of [place] coronary artery without angina pectoris 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 Cardiology follow-up encounter Cervical spinal cord injury Cervical stenosis of spine Contact with or suspected exposure to other viral communicable disease COPD (chronic obstructive pulmonary disease) COPD (chronic obstructive pulmonary disease) COVID-19 Diabetes mellitus, type 2 Diarrhea Duodenal ulcer Dyspnea Elevated troponin (05/15/21) Encephalopathy (05/15/21) Encounter for immunotherapy Encounter for immunotherapy Epistaxis Essential (primary) hypertension Former smoker Frequent headaches Gastric reflux History of echocardiogram History of edema History of pain when walking History of primary malignant neoplasm of left kidney History of steroid therapy Hx of radiation therapy Hyperglycemia Hyperlipidemia Hypokalemia Hyponatremia Imbalance Iron deficiency anemia due to chronic blood loss Low iron 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 Nonrheumatic aortic (valve) stenosis with insufficiency Numbness in right leg Pneumonia Port-A-Cath in place Pulmonary emboli RUE numbness Seizure (05/15/21) Seizures Shortness of breath on exertion Sinus congestion Skin cancer Thrombocytopenia Wears dentures Wears glasses Home Medications rosuvastatin 40 mg tablet (Crestor) 40 mg PO DAILY CHOLESTEROL 08/18/18 [History Last Taken 03/07/24] carvedilol 25 mg tablet 25 mg PO BID blood pressure 04/30/21 [History Last Taken 03/08/24] albuterol sulfate 90 mcg/actuation aerosol inhaler 1 puff inhalation Q6H PRN SOB 05/31/21 [History Last Taken 06/12/21] hydralazine 50 mg tablet 50 mg PO BID diuretic 05/31/21 [History Last Taken 03/08/24] lidocaine-prilocaine 2.5 %-2.5 % topical cream 1 applic topical ONCE PRN Port access 30 days #30 grams 01/28/22 [Rx Last Taken Unknown] apixaban 5 mg tablet (Eliquis) 2.5 mg (1/2 x 5 mg) PO BID #60 tabs 07/20/23 [Rx Last Taken 02/29/24] amlodipine 10 mg tablet 10 mg PO DAILY Check with primary doctor #90 tabs 08/21/23 [Rx Last Taken 03/08/24] ipratropium 0.5 mg-albuterol 3 mg (2.5 mg base)/3 mL nebulization soln 3 ml inhalation Q4H PRN shortness of breath or wheezing #180 mL 09/07/23 [Rx Last Taken Unknown] dexamethasone 1 mg tablet 0.5 mg PO DAILY 11/18/23 [History Last Taken 03/08/24 07:00] pantoprazole 40 mg tablet,delayed release (Protonix) 40 mg PO BID PRN GERD 12/04/23 [History Last Taken 03/08/24] pembrolizumab 50 mg intravenous solution 200 mg .Route .COMPLEX 03/01/24 [History Last Taken Unknown] Allergy/AdvReac Type Severity Reaction Status Date / Time No Known Allergies Allergy Verified 03/08/24 10:02 Family History Sister Diabetes CAD (coronary artery disease) Mother CVA (cerebral vascular accident) CAD (coronary artery disease) Lung cancer Father CAD (coronary artery disease) Brother CAD (coronary artery disease) Surgical History History of cataract surgery History of coronary angioplasty (01/05/04) History of coronary artery stent placement (07/17/03) History of lobectomy of lung History of nephrectomy, left Social History Smoking Status: Former smoker Tobacco: How many years used: 40 second hand exposure: No alcohol intake: current alcohol intake frequency: a few times a month Alcohol type: beer substance use type: does not use seatbelt use: always do you feel safe at home: Yes ROS ROS Narrative Review of systems: General: Patient denies fever or chills. HENT: Denies headache, denies stuffy nose, denies sore throat EYES: Denies changes in vision or discharge from eyes. Resp: Denies cough, denies shortness of breath Cardiac: Denies chest pain, palpitations or heart racing. GI: Denies abdominal pain, denies changes in bowel, denies nausea or vomiting. : Denies changes in urination Extremity: Denies swelling Musculoskeletal: Feels somewhat generally weak and unwell but denies arthralgias or myalgias. Neuro: Patient denies headache or focal neurologic weakness. Heme: Denies any bleeding or bruising Skin: Denies rashes Psychiatric: No complaints voiced related to uncontrolled depression or anxiety. Endocrine: No polyuria, polydipsia or polyphagia. The rest of the 14 point ROS was negative except for positives in HPI. Physical Exam Const alert, oriented x3, no apparent distress and average body habitus General Appearance: cooperative HEENT normocephalic, head/scalp atraumatic, hearing grossly normal bilaterally and moist oral mucous membranes Eyes PERRL and EOMs intact bilaterally Neck Neck Narrative: Patient has cervical collar in place after recent cervical spine fusion. Resp normal respiratory effort, no retractions, no use of accessory muscles and clear to auscultation bilaterally Resp Narrative: Port in place in right upper chest. Cardio regular rate and regular rhythm GI normal to inspection, nondistended, normoactive bowel sounds, soft to palpation, non-tender and non-distended Extremity normal to inspection and full ROM Skin Skin Narrative: Patient has no evidence of abscess, rash or jaundice. Neuro oriented x3, CN's II-XII intact bilaterally, moves all extremities, no focal motor deficits and no sensory deficits noted Sensorium / Orientation: awake, alert, oriented to person, oriented to place and oriented to time Speech: speech normal Psych affect normal Medical Records Data Attestation: I reviewed the patient's medical records Lab / Micro Data Attestation: I reviewed the patient's lab results. Labs: Laboratory Results - last 24 hr 03/08/24 10:13: POC Glucose 103 Imaging Radiology Impression Cervical Spine X-Ray 03/08/24 11:00 IMPRESSION: Intraoperative digital documentation views. Electronically Signed: Marshall Minaya MD at 15:11 EDT , Charges/Coding Visit Charges Office Visits / Consults: [id number] IP Consult L2
[2024-03-08] MEDS: Methocarbamol 500 MG Tablet 1000 MG PO ×2 (17:48→21:29)
[2024-03-08] MEDS: oxyCODONE 5 MG Tablet PO (17:49)
[2024-03-08] MEDS: Ketorolac 15 MG/ML Vial IV (21:29)
[2024-03-08] MEDS: Carvedilol 25 MG Tablet PO (21:29)
[2024-03-08] MEDS: hydrALAZINE 50 MG Tablet PO (21:29)
[2024-03-08] MEDS: Senna/Docusate Sodium 1 Tablet 2 TABLET PO (21:30)
[2024-03-08] MEDS: 0.9 % NaCl (Sterile) Posiflush 10 mL IV (23:19)
[2024-03-09 03:15] VITALS: BMI 35.1
[2024-03-09 03:16] VITALS: BP 147/80; PULSE 76; RESP 16; TEMP 36.4; O2SAT 95
[2024-03-09] MEDS: Cefazolin 2 GM in 0.9% Normal Saline (100mL Bag) 100 ML IV (03:22)
[2024-03-09] MEDS: dexAMETHasone 4 MG/ML Vial 2 MG IV ×2 (05:32→08:15)
[2024-03-09] MEDS: Acetaminophen 500 MG Tablet 1000 MG PO ×2 (05:33→13:51)
[2024-03-09] MEDS: Ketorolac 15 MG/ML Vial IV (05:33)
[2024-03-09] MEDS: Pantoprazole Sodium 40 MG Tablet PO (05:43)
[2024-03-09 06:08] LABS: Hematocrit 34.6 % (40-54); Hemoglobin 10.5 g/dL (13.0-16.5); Mean Corp Hgb Conc 30.3 g/dL (32-36); Mean Corpuscular Hgb 22.9 pg (27.0-32.0); Mean Corpuscular Volume 75.4 fL (80-94); Mean Platelet Vol. 9.6 fl (6.2-12.0); Platelet Count 195 K/mm3 (150-450); Red Blood Count 4.59 M/mm3 (4.6-6.2); White Blood Count 8.6 K/mm3 (4.4-11.0)
[2024-03-09 06:10] VITALS: BP 130/87; PULSE 78; RESP 18; TEMP 36.9; O2SAT 96; BMI 35.1
[2024-03-09 06:32] LABS: Anion Gap 4 (5-15); BUN 17 mg/dL (7-18); BUN/Creat Ratio 15.7 RATIO (10-20); Calcium,Total 8.5 mg/dL (8.5-10.1); Chloride 111 mmol/L (98-107); Creatinine, Serum 1.08 mg/dL (0.70-1.30); EST Glomerular Filtration Rate 72 mL/min (>60); Est Glom Filt Rate - Afr Amer 87 mL/min (>60); Estimated Creatinine Clearance 67.71 ml/min; Glucose 167 mg/dL (74-106); Sodium Level 138 mmol/L (136-145)
[2024-03-09] MEDS: Lactated Ringers 1,000 ML 100 ML IV (06:37)
--- NOTE | 2024-03-09 07:38 | PCM.PN.HOSP ---
Reason for Visit Reason for Visit: Diagnoses Disease of spinal cord, unspecified (03/08/24) Essential (primary) hypertension (03/08/24) Encounter for other preprocedural examination (03/08/24) Subjective Subjective Patient is a 68-year-old gentleman who underwent C3-C5 anterior cervical discectomy and fusion with plate instrumentation on 03/08/[address] Greg Sutherland. Service was consulted to assist with management of patient medical comorbiditie Objective Data Objective Data Vital Signs: Vital Signs Temp Pulse Resp BP Pulse Ox O2 Del Method O2 Flow Rate 98.5 F 78 18 130/87 H 96 Room Air 2 03/09/24 06:10 03/09/24 06:10 03/09/24 06:10 03/09/24 06:10 03/09/24 06:10 03/09/24 06:10 03/08/24 19:50 Oxygen Flow Rate (L/min) 2 Oxygen Delivery Method Room Air Weight: 95.8 kg Body Mass Index (BMI) 35.1 Intake & Output: Intake and Output for Last 24 Hours 03/07/24 03/08/24 03/09/24 23:59 23:59 23:59 Intake Total 619.92 / 859.92 1003.58 / 1003.58 Output Total 350 / 675 325 / 325 Balance 269.92 / 184.92 678.58 / 678.58 Lab / Micro Data 03/09/24 06:00 03/09/24 06:00 Labs: Laboratory Results - last 24 hr 03/08/24 10:13: POC Glucose 103 03/09/24 06:00: WBC 8.6, RBC 4.59 L, Hgb 10.5 L, Hct 34.6 L, MCV 75.4 L, MCH 22.9 L, MCHC 30.3 L, RDW Std Deviation 50.0 H, RDW Coeff of Kailey 19.0 H, Plt Count 195, MPV 9.6, Sodium 138, Potassium 4.0, Chloride 111 H, Carbon Dioxide 23.0, Anion Gap 4 L, BUN 17, Creatinine 1.08, Estim Creat Clear Calc 67.71, Est GFR (MDRD) Af Amer 87, Est GFR (MDRD) Non-Af 72, BUN/Creatinine Ratio 15.7, Glucose 167 H, Calcium 8.5 Micro: Microbiology 03/01/24 08:59 Swab (Method) Nasal Screen MRSA/MSSA - Final Radiography Diagnostic Testing: Radiology Impression Cervical Spine X-Ray 03/08/24 11:00 IMPRESSION: Intraoperative digital documentation views. Electronically Signed: Marshall Minaya MD at 15:11 EDT Reading Location ID and State: [address] [place] [address] , Service support , Physical Exam Narrative GENERAL: cooperative HEENT: Neck in collar EYES; Anicteric, Normal Conjunctiva NECK; supple, normal thyroid, RESPIRATORY: Diminished to auscultation CARDIOVASCULAR: Regular S1 S2, GI: soft, normoactive bowel sounds, : No Renal angle tenderness; EXTREMITIES: No edema, no clubbing, MUSCULOSKELETAL: no muscle wasting NEURO: Awake; no lateralizing signs. SKIN: No Rash PSYCH; Flat affect Assessment & Plan Assessment/Plan (1) Essential hypertension: (2) Cervical myelopathy: PLAN: Plan Patient is a 68-year-old gentleman who underwent C3-C5 anterior cervical discectomy and fusion with plate instrumentation on 03/08/[address] Greg Sutherland. Service was consulted to assist with management of patient medical comorbidities 1. 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 Patient postoperative orders regarding pain management, PT OT and DVT prophylaxis deferred to primary service 2.History of left renal cell carcinoma ? With mets to lung and adrenal gland and brain patient is being followed by Dr. Michael Miller with oncology as outpatient. Patient renal cell carcinoma treated with nephrectomy. Also had lobectomy for the mets to the lung as well as radiation therapy to the mets to the brain. 3. Hypertension - Blood pressure controlled, home medications continued with dose adjustment as needed 4. Dyslipidemia -Patient is on statin therapy, continued at home dose 5. GERD ? On PPI 6. Coronary artery disease ? With previous stent placement 7. History of right lower lobe nonocclusive PE ? Patient is on apixaban. Decision to resume defer to Ortho 8. DVT prophylaxis ? Bilateral SCDs for now Time spent in the patient's overall evaluation,decision-making process, review of diagnostic data, adjustment of management, discussion with other providers, nursing nursing and ancillary staff involved in patient's care documentation, 35 Minutes Charges/Coding Visit Charges Inpatient E&M: 52043 Subs Hosp L2
[2024-03-09 08:13] VITALS: PULSE 78
[2024-03-09] MEDS: hydrALAZINE 50 MG Tablet PO (08:13)
[2024-03-09] MEDS: amLODIPine 10 MG Tablet PO (08:14)
[2024-03-09] MEDS: Methocarbamol 500 MG Tablet 1000 MG PO ×2 (08:14→13:51)
[2024-03-09] MEDS: Carvedilol 25 MG Tablet PO (08:14)
[2024-03-09] MEDS: Meloxicam 15 MG Tablet PO (08:14)
[2024-03-09] MEDS: Senna/Docusate Sodium 1 Tablet 2 TABLET PO (08:15)
--- NOTE | 2024-03-09 09:10 | RAD_ITS ---
STUDY: X-RAY - CERVICAL SPINE REASON FOR EXAM: Male, 68 years old. s/p acdf -- Please do upright AP lateral TECHNIQUE: 2 view(s) of the cervical spine were obtained. COMPARISON: Comparison is made with prior study dated January 15, 2024. FINDINGS: There are degenerative changes of the anterior atlantoaxial articulation. Normal odontoid process. There is straightening of the normal cervical lordosis. The patient is status post anterior fusion and disc replacement at the C3-C4 and C4-C5 levels. Facet joint osteoarthritis. Prevertebral soft tissue swelling in keeping with recent surgery. RAD/Cerv Spine 2 or 3 Views IMPRESSION: Status post anterior fusion and disc replacement at the C3-C4 and C4-C5 levels. Facet joint osteoarthritis. Postoperative prevertebral soft tissue swelling secondary to the recent surgery. Electronically Signed: Musa Crooks MD at 9:36 EDT ,
--- NOTE | 2024-03-09 09:24 | PCM.PN.ORT ---
Subjective Subjective Postop day 1 status post C3-5 ACDF. Doing well. Pain well-controlled. Has ambulated to bathroom with nursing. Denies dysphagia. Objective Data Objective Data Vital Signs: Vital Signs Temp Pulse Resp BP Pulse Ox O2 Del Method O2 Flow Rate 98.5 F 78 18 130/87 H 96 Room Air 2 03/09/24 06:10 03/09/24 08:13 03/09/24 06:10 03/09/24 06:10 03/09/24 06:10 03/09/24 06:10 03/08/24 19:50 Oxygen Flow Rate (L/min) 2 Oxygen Delivery Method Room Air Weight: 211 lb 3.245 oz Body Mass Index (BMI) 35.1 Intake & Output: Intake and Output for Last 24 Hours 03/07/24 03/08/24 03/09/24 23:59 23:59 23:59 Intake Total 619.92 / 859.92 1342.25 / 1342.25 Output Total 350 / 675 325 / 325 Balance 269.92 / 184.92 1017.25 / 1017.25 Lab / Micro Data 03/09/24 06:00 03/09/24 06:00 Labs: Laboratory Results - last 24 hr 03/08/24 10:13: POC Glucose 103 03/09/24 06:00: WBC 8.6, RBC 4.59 L, Hgb 10.5 L, Hct 34.6 L, MCV 75.4 L, MCH 22.9 L, MCHC 30.3 L, RDW Std Deviation 50.0 H, RDW Coeff of Kailey 19.0 H, Plt Count 195, MPV 9.6, Sodium 138, Potassium 4.0, Chloride 111 H, Carbon Dioxide 23.0, Anion Gap 4 L, BUN 17, Creatinine 1.08, Estim Creat Clear Calc 67.71, Est GFR (MDRD) Af Amer 87, Est GFR (MDRD) Non-Af 72, BUN/Creatinine Ratio 15.7, Glucose 167 H, Calcium 8.5 Micro: Microbiology 03/01/24 08:59 Swab (Method) Nasal Screen MRSA/MSSA - Final Radiography Diagnostic Testing: Radiology Impression Cervical Spine X-Ray 03/08/24 11:00 IMPRESSION: Intraoperative digital documentation views. Electronically Signed: Marshall Minaya MD at 15:11 EDT , Physical Exam Narrative Dressing?sanguinous staining noticed. Dressing was changed by nursing late last night. I remove the dressing and remove the Kelli drain and applied new gauze and Tegaderm dressing. Neurologic evaluation of upper and lower extremity shows 5 x 5 power normal shows normal sensations in all dermatomes. Assessment & Plan Assessment/Plan (1) S/P cervical spinal fusion: PLAN: Plan Postop day 1 status post C3-5 ACDF. PT OT today. Drain removed. Upright x-rays reviewed. Encouraged incentive spirometry. Encouraged upright positioning for better resolution of swelling. Okay to discharge home today once PT cleared.
[2024-03-09 10:00] VITALS: BP 150/64; PULSE 78; RESP 18; TEMP 37; O2SAT 95
--- NOTE | 2024-03-09 11:21 | CASEMGMT ---
LUPE GAR Assessment Face to Face with patient for initial transition planning/care coordination assessment. LUPE GAR introduced self and role at [facility], pt voices understanding. Pt is A&Ox4 and is resting comfortably in bed and is calm. Care providers, pharmacy, and demographics verified. Admitting dx: Anterior Cervical Fusion C3-4 and C4-5 PCP: Jacob Jennings Specialists: Michael (Oncology) Preferred Pharmacy: [facility] Insurance: [employer] A/B, [employer] Prescription Benefit: Yes LNOK: Karen Arshad (W) Living Arrangements: Pt lives with his in a split level home 2 two steps to enter and 5 steps to manage inside the home. ADLs/IADLs: Ind Transportation: DME: History of O2 supplied through [employer] but the pt states that he does not use. Pt states that he has portable tanks, concentrator, and a pulse Ox. Email sent to [employer] to verify current order. Pt is currently on room air. Pt also has a FWW, Cane, and walk-in shower at home. HHC/SNF: Denies history or needs Pt?s goal: Home with OP therapy Plan: Pt states that Dr. Sutherland told him that he will be into the room later today to discuss OP therapy plans. Pt states that he is to f/u with OP therapy in 2 weeks. Pt 6-Click is 21. Pt is agreeable and feels safe with this plan. Pt educated that CM can help set this up if needed. CM to follow after Dr. Sutherland sees the pt. CM to follow for safe DC from [facility]. Israel Hernandez RN, CM
[2024-03-09 11:50] VITALS: BMI 35.1
--- NOTE | 2024-03-09 12:19 | PHA.DC.MC.R ---
Pharmacy [facility] Service has performed discharge medication reconciliation and counseling for this patient. Patient requested meds to beds, This [facility] called retail and requested delivery. 1. ACETAMINOPHEN 500MG PO Q6 x 7 DAYS 2. MELOXICAM 15MG PO DAILY x 7 DAYS 3. METHOCARBAMOL 750MG PO Q8H PRN MUSCLE SPASMS X 7 DAYS 4. OXYCODONE 2.5-5MG PO Q6H PRN PAIN X 5 DAYS 5. SENNA/DOCUSATE 2T PO BID PRN CONSTIPATION 6. RESTART ELIQUIS 03/11 The patient's discharge medication list was reviewed for discrepancies and discrepancies were resolved. The patient was counseled on the following discharge medications and changes in medications for homegoing were reviewed. The Reason for Use, instructions for use, and potential side effects were reviewed for all new medications. The patient's questions regarding all of their medications were answered. The patient was able to verbally demonstrate an understanding of their discharge medications. Medications at Discharge Home Medications rosuvastatin 40 mg tablet (Crestor) 40 mg PO DAILY CHOLESTEROL 08/18/18 carvedilol 25 mg tablet 25 mg PO BID blood pressure 04/30/21 albuterol sulfate 90 mcg/actuation aerosol inhaler 1 puff inhalation Q6H PRN SOB 05/31/21 hydralazine 50 mg tablet 50 mg PO BID diuretic 05/31/21 lidocaine-prilocaine 2.5 %-2.5 % topical cream 1 applic topical ONCE PRN Port access 30 days #30 grams 01/28/22 apixaban 5 mg tablet (Eliquis) 2.5 mg (1/2 x 5 mg) PO BID #60 tabs 07/20/23 amlodipine 10 mg tablet 10 mg PO DAILY Check with primary doctor #90 tabs 08/21/23 ipratropium 0.5 mg-albuterol 3 mg (2.5 mg base)/3 mL nebulization soln 3 ml inhalation Q4H PRN shortness of breath or wheezing #180 mL 09/07/23 dexamethasone 1 mg tablet 0.5 mg PO DAILY 11/18/23 pantoprazole 40 mg tablet,delayed release (Protonix) 40 mg PO BID PRN GERD 12/04/23 pembrolizumab 50 mg intravenous solution 200 mg .Route .COMPLEX 04/23/24 acetaminophen 500 mg tablet 500 mg PO Q6H 7 days #28 tabs 03/09/24 meloxicam 15 mg tablet 15 mg PO DAILY 7 days #7 tabs 03/09/24 methocarbamol 500 mg tablet 750 mg (1.5 x 500 mg) PO Q8H PRN pain/spasms 7 days #28 tabs 03/09/24 oxycodone 5 mg tablet 2.5 - 5 mg (0.5 - 1 x 5 mg) PO Q6H PRN pain 5 days #20 tabs 03/09/24 sennosides 8.6 mg-docusate sodium 50 mg tablet (Stool Softener-Stimulant Laxative) 2 tab PO BID PRN constipation 7 days #28 tabs 03/09/24
--- NOTE | 2024-03-09 12:58 | CASEMGMT ---
LUPE GAR NOTE: Pt being discharged home. Per Dr Sutherland, pt does not need any OP therapy scheduled at this time unless [facility] therapy recommends it after evaluating pt. Dr Sutherland states he will set up OP therapy @ the 2-week f/u appt. LUPE GAR spoke w/Kristal in therapy who states no C recommended at this time. LUPE GAR to room. Introduced self and role. @ bedside. They were made aware of above. They voice understanding and deny having any discharge needs/concerns. Jorge Luis EDMONDSN LUPE CM
[2024-03-09 13:45] VITALS: BP 146/67; PULSE 84; RESP 18; TEMP 37; O2SAT 96
[2024-03-09] MEDS: 0.9 % NaCl (Sterile) Posiflush 10 mL IV (13:52)
== END 2024-03-09 15:01 | disposition home or self-care (01) ==
LOC: SDC 15:13 → MS3 15:13
PROVIDERS: Anesthesiology; Admitting Provider Orthopaedic Surgery Orthopaedic Surgery of the Spine; PCP Family Medicine; Referring Provider Orthopaedic Surgery Orthopaedic Surgery of the Spine; Visit Provider Internal Medicine
PROC: (CPT 22551; principal; 2024-03-08 11:30)
DX: M50.01 Cervical disc disorder with myelopathy, high cervical region (principal); G99.2 Myelopathy in diseases classified elsewhere; J44.9 Chronic obstructive pulmonary disease, unspecified; E11.9 Type 2 diabetes mellitus without complications; K21.9 Gastro-esophageal reflux disease without esophagitis; Z92.3 Personal history of irradiation; Z87.891 Personal history of nicotine dependence; Z86.16 Personal history of COVID-19; E78.5 Hyperlipidemia, unspecified; I25.10 Atherosclerotic heart disease of native coronary artery without angina pectoris; I10 Essential (primary) hypertension; Z79.01 Long term (current) use of anticoagulants; Z79.899 Other long term (current) drug therapy; Z85.528 Personal history of other malignant neoplasm of kidney; Z85.118 Personal history of other malignant neoplasm of bronchus and lung; Z85.841 Personal history of malignant neoplasm of brain; E66.9 Obesity, unspecified; Z68.35 Body mass index [BMI] 35.0-35.9, adult; M48.02 Spinal stenosis, cervical region
CPT/HCPCS: 22551; 22845; 22552; 20931; 20930; 00670; 36415; 72040; 76000; 80048; 82962; 83735; 85027; 86703; 86706; 86708; 86803; 87077; 87081; 93005; 94668; 96365; 96366; 96375; 96376; 97162; 97166; 99221; A4648; C1713; J7120; G0378; J2405; J3475

== ENCOUNTER → 2024-04-27 | Outpatient (CLI) | payer MEDICARE, OTHER, SELFPAY ==
--- NOTE | 2024-04-27 14:15 | CT_ITS ---
STUDY: CT CHEST, ABDOMEN T PELVIS WITH CONTRAST REASON FOR EXAM: Male, 68 years old. KIDNEY CANCER IV CONTRAST ONLY RADIATION DOSAGE (If Supplied By Facility): CTDIvol = ( 17.94 ) mGy, DLP = ( 1980.88 ) mGycm TECHNIQUE: Transaxial imaging was performed following intravenous administration of IV 100mL Isovue-300. Multiplanar coronal and sagittal images were reformatted. Individualized dose optimization techniques were used for this CT. COMPARISON: Comparison is made with prior study dated January 13, 2024. FINDINGS: CHEST A right-sided eliseo catheter seen with the tip in the superior vena cava. Minimal scarring is seen in the posterior medial aspect of the right upper lobe. Mild scarring is seen at the lung bases in the posterior segment of the lower lobes as well as in the anterior aspect of the right middle lobe abutting the pleural surface. This is unchanged as compared to prior study. Stable 8 mm noncalcified nodule in the anterior portion of the left lower lobe as seen on axial image #76. There is no demonstrated pleural abnormality. There are calcifications of the coronary arteries. Cardiomegaly. Normal mediastinum. Normal hilar regions. Normal unenhanced pulmonary arteries. There is atherosclerotic calcification of the aortic arch. Normal osseous structures. ABDOMEN Stable subcentimeters cyst in the anterior right lobe of the liver. Normal gallbladder and extrahepatic biliary system. Normal spleen. Normal pancreas. Normal bilateral adrenal glands. There is a 3.47 x 3.5 cm heterogeneous mass in the posterior medial aspect of the lower pole of the right kidney. 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 Once again, the patient status post left nephrectomy. Normal visualized stomach. Normal small intestine. Normal colon. The appendix is visualized and appears normal. There is diffuse atherosclerotic calcification of the abdominal aorta and its major visceral branches, without a demonstrated aneurysm. Normal inferior vena cava. Normal retroperitoneum. Normal abdominal wall. There are diffuse degenerative changes of the visualized lumbar spine. PELVIS Normal urinary bladder. Prostatic enlargement. Metallic radiation seeds are seen within the prostate. There is diffuse atherosclerotic calcification of the pelvic arteries. CT/CT Chest, Abd, Pel w/Contrast IMPRESSION: Stable examination. Electronically Signed: Musa Crooks MD at 15:20 EDT ,
== END | disposition home or self-care (01) ==
LOC: CT 13:54
PROVIDERS: PCP Family Medicine; Referring Provider Internal Medicine Hematology & Oncology; Visit Provider Internal Medicine Hematology & Oncology
DX: C64.1 Malignant neoplasm of right kidney, except renal pelvis (principal); C78.01 Secondary malignant neoplasm of right lung; C79.71 Secondary malignant neoplasm of right adrenal gland; C77.9 Secondary and unspecified malignant neoplasm of lymph node, unspecified; C34.31 Malignant neoplasm of lower lobe, right bronchus or lung
CPT/HCPCS: 71260; 74177; Q9967; A4216

== ENCOUNTER 2024-05-06 10:00 | Outpatient (RCR) | payer MEDICARE, OTHER, SELFPAY ==
--- NOTE | 2024-04-12 12:32 | HP.PTEVAL ---
Patient's Visit Information Visit Information Visit Information: KENN IRAHETA is a 68 year old M referred to Physical Therapy by Dr. Greg Sutherland MD with a diagnosis of ARTHRODESIS. Date of Evaluation: 04/12/24 Physical Therapist: Niraj Rosas PT, Cert MDT, OCS Visit Plan Frequency: 2x /Week Duration: 4 Weeks Plan: S/P CERVICAL FUSION OKAY WEAN FOR ASPEN CERVICAL COLLAR Subjective Subjective: This 68 y/o male male presents to physical therapy with cervical fusion C3-5 discectomy and plate instrumentation with bone graft allograft on 03/08/24 done at [facility] and D/C with aspen cervical collar. Patient took oxycodone which patient has stopped. Patient seen DR 03/22/24 and wean from collar and had x-rays looked . Patient to start PT 2-3 weeks from 03/22. No pain just paresthesia/tingling. Patient has multiple comorbities to include Cancer of kidneys which takes autoimmune medication and h/o lung and brain cleared. Prior to surgery MRI no PT or pain management Patient doesn't sleep well. Patient has difficulty with ADL and housework tasks but getting better with being active around the house. Patient goals to decrease paresthesia . SOCIAL: VOCATION: retired Objective Objective: POSTURE: mild forward posture OBSERVATIONS: aspen collar NEURO: denies paresthesia/tingling ,reflexes C5-6-7 1/3 ,light touch intact right arm PALAPTION: tender UT/levator CERVICAL ROM: flexion min loss ,lateral flexion mod loss ,extension mod loss ,rotation mod loss MMT : biceps 4/5 ,triceps 4-/5 ,wrist 4/5 ( peak force) anterior deltoid 12.2 ,right ,left 13.2 DYNOMETER: right 35 # ,60 # left Special Tests C/S Radiculapathy - Left Upper limb tension test: Negative C/S Radiculapathy - Right Upper limb tension test: Negative Balance/Special Test Scores Oswestry Neck Score: 21 Goals Goal 1:: Patient to be I with HEP CERVICAL FUSION Goal Time Frame: 4-6 Weeks Goal 2:: Patient to improve cervical ROM for function of recovery to drive Goal Time Frame: 4-6 Weeks Goal 3:: Patient to demonstrate 50% improvement with function and and ADLS with less symptoms Goal Time Frame: 4-6 Weeks Goal 4:: Patient to improve peak force deltoid by 5-10 # to improve function and ADLS Goal Time Frame: 4-6 Weeks Goal 5:: Patient 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 Goal Time Frame: 4-6 Weeks Goal 6:: Patient to improve neck oswestry score 5 points to improve function/QOL Goal Time Frame: 4-6 Weeks Rehabilitation Potential Physical Therapy Diagnosis: This patient underwent s/p cervical fusion and discectomy with allograft and instrumentation with paresthesia/tingling right arm ,weakness shoulders ,decrease cervical ROM causes impairments with function thus benefit from skilled PT along with multiple comorbities influences conidtion Rehabilitation Potential: Good Anticipated Interventions Patient/Client Instruction: Educate patient on: Condition and Plan of Care For the Purpose of:: To decrease pain, To increase ROM, To improve muscle performance and motor function, To improve ability to perform ADL's, To increase tolerance to activity/condition/position, To improve ability of physical actions for home/community/work/leisure, To improve health of tissue, To decrease soft tissue restriction, To increase flexibility/ROM and To improve tolerance to ADL's Therapeutic Exercise to Include: Strength training, Postural training, Flexibilty training and Active ROM Comment: BUE -SHOULDERS For the Purpose of:: To decrease pain, To increase ROM, To improve muscle performance and motor function, To improve ability to perform ADL's, To increase tolerance to activity/condition/position, To improve ability of physical actions for home/community/work/leisure, To improve health of tissue, To decrease soft tissue restriction, To increase flexibility/ROM, To reduce risk of recurrence and To improve tolerance to ADL's Text: Thank you for the opportunity to evaluate your patient. For Medicare and Medicare HMO plans, please review the plan of care and approve it. It will need to be FAXED BACK to us at [phone] for Medicare purposes. For Medicare only, by signing this I certify the plan of care. Please let me know if there are questions or concerns regarding this plan of care. Physician Signature: Date:
--- NOTE | 2024-04-14 12:44 | HP.PTEVAL ---
Patient's Visit Information Visit Information Visit Information: KENN IRAHETA is a 68 year old M referred to Physical Therapy by Dr. Greg Sutherland MD with a diagnosis of ARTHRODESIS. Date of Evaluation: 04/12/24 Physical Therapist: Niraj Rosas PT, Cert MDT, OCS Visit Plan Frequency: 2x /Week Duration: 4 Weeks Plan: S/P CERVICAL FUSION OKAY WEAN FOR ASPEN CERVICAL COLLAR Subjective Subjective: This 68 y/o male male presents to physical therapy with cervical fusion C3-5 discectomy and plate instrumentation with bone graft allograft on 03/08/24 done at [facility] and D/C with aspen cervical collar. Patient took oxycodone which patient has stopped. Patient seen DR 03/22/24 and wean from collar and had x-rays looked . Patient to start PT 2-3 weeks from 03/22. No pain just paresthesia/tingling. Patient has multiple comorbities to include Cancer of kidneys which takes autoimmune medication and h/o lung and brain cleared. Prior to surgery MRI no PT or pain management Patient doesn't sleep well. Patient has difficulty with ADL and housework tasks but getting better with being active around the house. Patient goals to decrease paresthesia . SOCIAL: VOCATION: retired Objective Objective: POSTURE: mild forward posture OBSERVATIONS: aspen collar NEURO: denies paresthesia/tingling ,reflexes C5-6-7 1/3 ,light touch intact right arm PALAPTION: tender UT/levator CERVICAL ROM: flexion min loss ,lateral flexion mod loss ,extension mod loss ,rotation mod loss MMT : biceps 4/5 ,triceps 4-/5 ,wrist 4/5 ( peak force) anterior deltoid 12.2 ,right ,left 13.2 DYNOMETER: right 35 # ,60 # left Special Tests C/S Radiculapathy - Left Upper limb tension test: Negative C/S Radiculapathy - Right Upper limb tension test: Negative Balance/Special Test Scores Oswestry Neck Score: 21 Goals Goal 1:: Patient to be I with HEP CERVICAL FUSION Goal Time Frame: 4-6 Weeks Goal 2:: Patient to improve cervical ROM for function of recovery to drive Goal Time Frame: 4-6 Weeks Goal 3:: Patient to demonstrate 50% improvement with function and and ADLS with less symptoms Goal Time Frame: 4-6 Weeks Goal 4:: Patient to improve peak force deltoid by 5-10 # to improve function and ADLS Goal Time Frame: 4-6 Weeks Goal 5:: 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 Goal Time Frame: 4-6 Weeks Goal 6:: Patient to improve neck oswestry score 5 points to improve function/QOL Goal Time Frame: 4-6 Weeks Rehabilitation Potential Physical Therapy Diagnosis: This patient underwent s/p cervical fusion and discectomy with allograft and instrumentation with paresthesia/tingling right arm ,weakness shoulders ,decrease cervical ROM causes impairments with function thus benefit from skilled PT along with multiple comorbities influences conidtion Rehabilitation Potential: Good Anticipated Interventions Patient/Client Instruction: Educate patient on: Condition and Plan of Care For the Purpose of:: To decrease pain, To increase ROM, To improve muscle performance and motor function, To improve ability to perform ADL's, To increase tolerance to activity/condition/position, To improve ability of physical actions for home/community/work/leisure, To improve health of tissue, To decrease soft tissue restriction, To increase flexibility/ROM and To improve tolerance to ADL's Therapeutic Exercise to Include: Strength training, Postural training, Flexibilty training and Active ROM Comment: BUE -SHOULDERS For the Purpose of:: To decrease pain, To increase ROM, To improve muscle performance and motor function, To improve ability to perform ADL's, To increase tolerance to activity/condition/position, To improve ability of physical actions for home/community/work/leisure, To improve health of tissue, To decrease soft tissue restriction, To increase flexibility/ROM, To reduce risk of recurrence and To improve tolerance to ADL's Text: Thank you for the opportunity to evaluate your patient. For Medicare and Medicare HMO plans, please review the plan of care and approve it. It will need to be FAXED BACK to us at [phone] for Medicare purposes. For Medicare only, by signing this I certify the plan of care. Please let me know if there are questions or concerns regarding this plan of care. Physician Signature: Date:
--- NOTE | 2024-04-14 12:48 | HP.PTEVAL_ITS ---
Patient's Visit Information Visit Information Visit Information: KENN IRAHETA is a 68 year old M referred to Physical Therapy by Dr. Greg Sutherland MD with a diagnosis of ARTHRODESIS. Date of Evaluation: 04/12/24 Physical Therapist: Niraj Rosas, PT, Cert MDT, OCS Visit Plan Frequency: 2x /Week Duration: 4 Weeks Plan: S/P CERVICAL FUSION OKAY WEAN FOR ASPEN CERVICAL COLLAR PT INTERVENTIONS GRADED CERVICAL ROM , POSTURAL EX'S , BUE STRENGTHENING ,ACTIVITY MODIFICATION AND CERVICAL ISOMTRICS Subjective Subjective: This 68 y/o male male presents to physical therapy with cervical fusion C3-5 discectomy and plate instrumentation with bone graft allograft on 03/08/24 done at [facility] and D/C with aspen cervical collar. Patient took oxycodone which patient has stopped. Patient seen 03/22/24 and wean from collar and had x-rays looked . Patient to start PT 2-3 weeks from 03/22. No pain just paresthesia/tingling. Patient has multiple comorbities to include Cancer of kidneys which takes autoimmune medication and h/o lung and brain cleared. Prior to surgery MRI no PT or pain management Patient doesn't sleep well. Patient has difficulty with ADL and housework tasks but getting better with being active around the house. Patient goals to decrease paresthesia . SOCIAL: VOCATION: retired Objective Objective: POSTURE: mild forward posture OBSERVATIONS: aspen collar NEURO: denies paresthesia/tingling ,reflexes C5-6-7 1/3 ,light touch intact right arm PALAPTION: tender UT/levator CERVICAL ROM: flexion min loss ,lateral flexion mod loss ,extension mod loss ,rotation mod loss MMT : biceps 4/5 ,triceps 4-/5 ,wrist 4/5 ( peak force) anterior deltoid 12.2 ,right ,left 13.2 DYNOMETER: right 35 # ,60 # left Special Tests C/S Radiculapathy - Left Upper limb tension test: Negative C/S Radiculapathy - Right Upper limb tension test: Negative Balance/Special Test Scores Oswestry Neck Score: 21 Goals Goal 1:: Patient to be I with HEP CERVICAL FUSION Goal Time Frame: 4-6 Weeks Goal 2:: Patient to improve cervical ROM for function of recovery to drive Goal Time Frame: 4-6 Weeks Goal 3:: Patient to demonstrate 50% improvement with function and and ADLS with less symptoms Goal Time Frame: 4-6 Weeks Goal 4:: Patient to improve peak force deltoid by 5-10 # to improve function and ADLS Goal Time Frame: 4-6 Weeks Goal 5:: Patient laurence improve fibrous plasterer strength dynamometer by 5-10# to improve function. Goal Time Frame: 4-6 Weeks Goal 6:: Patient to improve neck oswestry score 5 points to improve function/QOL Goal Time Frame: 4-6 Weeks Rehabilitation Potential Physical Therapy Diagnosis: This patient underwent s/p cervical fusion and discectomy with allograft and instrumentation with paresthesia/tingling right arm ,weakness shoulders ,decrease cervical ROM causes impairments with function thus benefit from skilled PT along with multiple comorbities influences conidtion Rehabilitation Potential: Good Anticipated Interventions Patient/Client Instruction: Educate patient on: Condition and Plan of Care For the Purpose of:: To decrease pain, To increase ROM, To improve muscle pe rformance and motor function, To improve ability to perform ADL's, To increase tolerance to activity/condition/position, To improve ability of physical actions for home/community/work/leisure, To improve health of tissue, To decrease soft tissue restriction, To increase flexibility/ROM and To improve tolerance to ADL's Therapeutic Exercise to Include: Strength training, Postural training, Flexibilty training and Active ROM Comment: BUE -SHOULDERS For the Purpose of:: To decrease pain, To increase ROM, To improve muscle per formance and motor function, To improve ability to perform ADL's, To increase tolerance to activity/condition/position, To improve ability of physical actions for home/community/work/leisure, To improve health of tissue, To decrease soft tissue restriction, To increase flexibility/ROM, To reduce risk of recurrence and To improve tolerance to ADL's Text: Thank you for the opportunity to evaluate your patient. For Medicare and Medicare HMO plans, please review the plan of care and approve it. It will need to be FAXED BACK to us at [phone] for Medicare purposes. For Medicare only, by signing this I certify the plan of care. Please let me know if there are questions or concerns regarding this plan of care. Physician Sig nature: Date:
--- NOTE | 2024-06-10 14:59 | HP.PTDCSUM_ITS ---
Discharge Summary D/C summary: It has been my pleasure to treat KENN IRAHEAT referred by Dr. Greg Sutherland MD, with the diagnosis of ARTHRODESIS for a total of 9 visit(s). Discharge Date: Please see the following information for a summary of their discharge status. Subjective Subjective: Plan to see MD in couple weeks Patient paresthesia same in arm Objective Objective/Function: POSTURE: mild forward posture OBSERVATIONS: aspen collar NEURO: denies paresthesia/tingling ,reflexes C5-6-7 1/3 ,light touch intact right arm PALAPTION: tender UT/levator CERVICAL ROM: flexion min loss ,lateral flexion mod loss ,extension mod loss ,rotation mod loss MMT : biceps 4/5 ,triceps 4-/5 ,wrist 4/5 ( peak force) anterior deltoid 125.2 ,right ,left 15.2 DYNOMETER: right 60 # ,65 # left Goals Goal 1:: Patient to be I with HEP CERVICAL FUSION Goal 2:: Patient to improve cervical ROM for function of recovery to drive Goal 3:: Patient to demonstrate 50% improvement with function and and ADLS with less symptoms Goal 4:: Patient to improve peak force deltoid by 5-10 # to improve function and ADLS Goal 5:: Patient laurence improve manager international strength dynamometer by 5-10# to improve function. Goal 6:: Patient to improve neck oswestry score 5 points to improve function/QOL Plan Plan: D/C TO HEP RTD D/C Information d/c sentence: If there are questions or concerns regarding this patient's physical therapy, please feel free to call me at [phone]. Thank you for the referral of this patient. Sincerely, Niraj Rosas, PT, Cert MDT, OCS Balance/Gait/Functional tests Balance/Special Test Scores Oswestry Neck Score: 6
== END 2024-05-06 19:00 | disposition home or self-care (01) ==
LOC: PT 10:00
PROVIDERS: PCP Family Medicine; Referring Provider Orthopaedic Surgery Orthopaedic Surgery of the Spine; Visit Provider Orthopaedic Surgery Orthopaedic Surgery of the Spine
DX: Z98.1 Arthrodesis status (principal)
CPT/HCPCS: 97110; 97162; 97530

== ENCOUNTER 2024-08-09 07:33 | Outpatient (CLI) | payer MEDICARE, OTHER, SELFPAY ==
--- NOTE | 2024-08-09 07:35 | CT_ITS ---
STUDY: CT CHEST, ABDOMEN T PELVIS WITH CONTRAST REASON FOR EXAM: Male, 68 years old patient with metastatic renal cell carcinoma (RCC). RADIATION DOSAGE (If Supplied By Facility): CTDIvol = ( 16.65 ) mGy, DLP = ( 2419.97 ) mGycm TECHNIQUE: Transaxial imaging was performed following intravenous administration of 100 mL of IV Isovue-300. Multiplanar coronal and sagittal images were reformatted. Individualized dose optimization techniques were used for this CT. COMPARISON: CT of the chest, abdomen and pelvis dated April 27, 2024. FINDINGS: CHEST The lungs are expanded. There is a left basilar dependent atelectasis. There is interstitial thickening and/or thickening of the interlobular septa within the posterior aspect of the left lower lobe. There is mild patchy ground glass attenuation at the left lower lobe. There is also dependent atelectasis in the right lower lobe. There is a nodular opacity in the right middle lobe on axial image 85 that measures approximately 10.6 mm in size. There are also some calcification in the right middle lobe. There is no demonstrated pleural abnormality. There is borderline cardiomegaly. There are calcifications of the coronary arteries. Normal mediastinum. Normal hilar regions. Normal unenhanced pulmonary arteries. There is atherosclerotic calcification of the aortic arch with tortuosity and elongation of the aortic arch and descending thoracic aorta. There are multi-level mild degenerative changes of the thoracic spine. ABDOMEN There are small lucencies within the left lobe of the liver that may represent small cysts. Normal gallbladder and extrahepatic biliary system. Normal spleen. There is diffuse atrophy of the pancreas. Normal bilateral adrenal glands. There appears to be are exophytic nodule arising from the posterior cortex of the mid right kidney measuring 3.6 x 3.6 x 3.9 cm in size. There is a small exophytic cyst arising from lower pole the right kidney measuring 2.1 cm in size. Patient has had a left-sided nephrectomy. Normal visualized stomach. There is no obvious dilated bowel, ascites or pneumoperitoneum. Small bowel has a grossly normal appearance. There is stool and bowel gas visible throughout the colon with scattered diverticula. The appendix is visualized and appears normal. There is diffuse atherosclerotic calcification of the abdominal aorta, without a demonstrated aneurysm. There is multifocal atherosclerotic calcification of the iliac arteries. Normal inferior vena cava. Normal retroperitoneum. There appears to be a ventral hernia in the left flank area which contains colon. There is straightening of the normal lumbar lordosis. The lumbar vertebral bodies have normal height and alignment. There is narrowing of L5-S1 disc space and vacuum disc phenomenon with degenerative disc disease. PELVIS Normal urinary bladder. There is no pelvic fluid. There is no pelvic lymphadenopathy or mass lesion. There are prostatic calcifications. Normal visualized pelvic arteries. There is diffuse atherosclerotic calcification of the pelvic arteries with elongation and tortuosity. There are bilateral inguinal hernias containing fat. Normal osseous structures. CT/CT Chest, Abd, Pel w/Contrast IMPRESSION: 1. Solid right-sided renal nodule suggests renal cell carcinoma. This appears unchanged since previous CT. 2. Status post left-sided nephrectomy. 3. Left flank ventral hernia containing bowel. 4. Left basilar airspace disease and/or atelectasis. 5. Unchanged appearance to right middle lobe subpleural nodule. Electronically Signed: Christen Hernandez MD at 6:45 EDT ,
[2024-08-09] MEDS: 0.9 % NaCl (Sterile) Posiflush 10 mL IV (08:10)
== END 2024-08-09 23:59 | disposition home or self-care (01) ==
PROVIDERS: PCP Family Medicine; Referring Provider Nurse Practitioner Family; Visit Provider Nurse Practitioner Family
DX: C64.1 Malignant neoplasm of right kidney, except renal pelvis (principal); C78.00 Secondary malignant neoplasm of unspecified lung; C79.01 Secondary malignant neoplasm of right kidney and renal pelvis; C79.71 Secondary malignant neoplasm of right adrenal gland; C77.9 Secondary and unspecified malignant neoplasm of lymph node, unspecified; C34.31 Malignant neoplasm of lower lobe, right bronchus or lung
CPT/HCPCS: 71260; 74177; Q9967; A4216

== ENCOUNTER → 2024-08-22 | Outpatient (CLI) | payer MEDICARE, OTHER, SELFPAY ==
--- NOTE | 2024-08-22 07:18 | ECHOD_ITS ---
Version 2 Reason For Study: Murmur Procedure This was a 2D Doppler, Color Flow transthoracic echocardiogram. Myocardial strain analysis was performed in this exam to aid in the assessment of cardiac function. Exam performed in department. Left Ventricle Normal LV size. Left ventricular systolic function is normal. The left ventricular ejection fraction is 65 %. Stage 1 diastolic dysfunction. No regional wall motion abnormalities noted. Right Ventricle Normal RV size. Normal systolic function. Atria Normal left atrium. Normal right atrium. Mitral Valve There is mild mitral annular calcification. Mild focal mitral valve calcification. Aortic Valve Trisinus/trileaflet aortic valve. Moderate focal aortic valve calcification. Peak aortic valve gradient 32 mmHg. Mean aortic valve gradient 16 mmHg. Mild aortic stenosis. Mild (1+) eccentric aortic valve insufficiency. Pulmonic Valve Normal pulmonic valve. Great Vessels Normal aortic root. The pulmonary artery is normal size. Normal inferior vena cava. Pericardium/Pleural No pericardial effusion. MMode/2D Measurements & Calculations LVIDd: 5.5 cm IVSd: 0.92 cm LVOT diam: 2.0 cm LVIDs: 3.6 cm LVPWd: 0.94 cm LVOT area: 3.1 cm2 RVDd: 3.6 cm FS: 34.5 % Ao root diam: 3.1 cm LAV(MOD-bp): 67.0 ml LA A4 area: 20.9 cm2 LAV(MOD-bp) Indexed: 33.9 ml/m2 LAV(MOD-sp2): 69.9 ml LAV(MOD-sp4): 64.2 ml LA dimension(2D): 4.4 cm RA A4 area: 17.3 cm2 TAPSE: 2.8 cm Time Measurements MV dec time: 0.19 sec Doppler Measurements & Calculations MV E max ildefonso: 74.4 cm/sec Lat Peak E' Ildefonso: 10.5 cm/sec Med Peak E' Ildefonso: 10.0 cm/sec MV A max ildefonso: 93.3 cm/sec E/E' lat: 7.1 E/E' med: 7.4 MV E/A: 0.80 MV V2 max: 104.6 cm/sec MV P1/2t max ildefonso: 104.6 cm/sec Ao V2 max: 282.7 cm/sec MV max P.4 mmHg MV P1/2t: 77.2 msec Ao max P.0 mmHg MV V2 mean: 63.3 cm/sec MV dec slope: 397.0 cm/sec2 Ao V2 mean: 185.8 cm/sec MV mean P.9 mmHg MVA(P1/2t): 2.9 cm2 Ao mean P.1 mmHg MV V2 VTI: 31.8 cm Ao V2 VTI: 69.2 cm MVA(VTI): 2.6 cm2 AV (velocity ratio): 0.38 LINA(I,D): 1.2 cm2 LINA(V,D): 1.1 cm2 AI max ildefonso: 440.7 cm/sec LV V1 max: 105.2 cm/sec SV(LVOT): 81.7 ml AI max P.7 mmHg LV V1 max P.4 mmHg LV V1 mean P.4 mmHg AI dec slope: 366.6 cm/sec2 LV V1 mean: 71.2 cm/sec AI P1/2t: 352.2 msec LV V1 VTI: 26.6 cm PA V2 max: 107.3 cm/sec ECHO/Echo Complete Interpretation Summary Normal LV size. Left ventricular systolic function is normal. The left ventricular ejection fraction is 65 %. Stage 1 diastolic dysfunction. Mean aortic valve gradient 16 mmHg. Mild aortic stenosis. The global longitudinal strain is normal. The global longitudinal strain = -19. 1 % (normal). Ordering Physician: Thien Sandoval Referring Physician: Thien Sandoval Performed By: Car Ochoa RCS
--- NOTE | 2024-08-22 07:18 | CDU_ITS ---
Reason For Study: Bruit Rt. Velocities/BP Lt. Velocities/BP Prox CCA 83/12 cm/sec. Prox CCA 86/13 cm/sec. Mid CCA 71/11 cm/sec. Mid CCA 83/18 cm/sec. Dist CCA 88/17 cm/sec. Dist CCA 97/18 cm/sec. Prox ICA 129/19 cm/sec. Prox ICA 103/16 cm/sec. Mid ICA 76/19 cm/sec. Mid ICA 108/23 cm/sec. Dist ICA 63/17 cm/sec. Dist ICA 107/20 cm/sec. Rt. ICA/CCA = 1.8. Lt. ICA/CCA = 1.3. Prox ECA 164/10 cm/sec. Prox ECA 157/8 cm/sec. Rt. Vert. 33/12 cm/sec. Lt. Vert. 85/13 cm/sec. Right Extracranial There is heterogeneous, irregular atherosclerotic plaque noted in the right common carotid artery. There is heterogeneous, irregular atherosclerotic plaque noted in the right internal carotid artery. There is heterogeneous, irregular atherosclerotic plaque noted in the right external carotid artery. Antegrade flow is noted in the right vertebral artery. Pre-steal waveform noted Rt Vert A. Left Extracranial There is heterogeneous, irregular atherosclerotic plaque noted in the left common carotid artery. There is heterogeneous, irregular atherosclerotic plaque noted in the left internal carotid artery. There is heterogeneous, irregular atherosclerotic plaque noted in the left external carotid artery. Antegrade flow is noted in the left vertebral artery. Procedure Carotid Duplex 85160. This is a Carotid Duplex examination using B-mode, color flow and specral Doppler. Exam performed in department. VL/Carotid Duplex Ultrasound Interpretation Summary Mild (<50%) stenosis right extracranial internal carotid. Mild (<50%) stenosis left extracranial internal carotid. Patent and antegrade vertebrals bilaterally. Ordering Physician: Thien Sandoval Referring Physician: Jacob Jennings Performed By: Shireen Mansfield, RDCS, RVT
--- NOTE | 2024-08-22 13:45 | STRESSREP_ITS ---
Stress Test Report Exercise myocardial perfusion stress test. 68-year-old male with a history of chest pain Stress protocol: Resting EKG demonstrates normal sinus rhythm with a rate of 75 bpm resting blood pressure is 122/70 mmHg. The patient exercised according to the regular Thaddeus protocol for a total duration of 3 minutes and 18 seconds attaining a maximum heart rate of 120 bpm which was 80% of maximum predicted heart rate; the maximum workload was 5.2 metabolic equivalents. At rest there were no ST or T wave changes noted to suggest ischemia and at peak exercise upsloping ST changes only were noted which did not meet the criteria for ischemia. No clinical angina was noted the test was terminated due to the target heart rate being achieved/fatig ue. The peak blood pressure was 150/72 mmHg. Rate-pressure product was 16,000. Myocardial perfusion protocol. 14.2 mCi of technetium 99m sestamibi was injected at rest. The patient exercised according to regular Thaddeus protocol for total duration of 3 minutes and 18 seconds and at peak exercise 44.3 mCi of technetium 99m sestamibi was injected stress images were obtained stress and rest images were reconstructed in comparing the short axis vertical long and horizontal long axis. Gated images were also obtained. Perfusion SPECT analysis: Review of the stress images demonstrate normal uptake of tracer noted in all areas of the myocardium. The resting images similarly demonstrate normal uptake of tracer noted in all areas of the myocardium. No areas of reversibility are noted to suggest ischemia no previous infarct was noted. Gated SPECT analysis: The gated ejection fraction is 67 point. Conclusion: Normal exercise myocardial perfusion stress test at a low to moderate workload Preserved ejection fraction.
== END | disposition home or self-care (01) ==
LOC: CVS 07:17
PROVIDERS: PCP Family Medicine; Referring Provider Internal Medicine Cardiovascular Disease; Visit Provider Internal Medicine Cardiovascular Disease
DX: R09.89 Other specified symptoms and signs involving the circulatory and respiratory systems (principal); R01.1 Cardiac murmur, unspecified; I25.10 Atherosclerotic heart disease of native coronary artery without angina pectoris; Z95.5 Presence of coronary angioplasty implant and graft
CPT/HCPCS: 78452; 93017; 93306; 93880; A9500; A4216

== ENCOUNTER 2024-12-14 17:16 | Inpatient (IN) | payer MEDICARE, OTHER, SELFPAY ==
[2024-12-14] VITALS (7 sets, daily range): BP systolic 117–138; BP diastolic 58–69; PULSE 77–83; RESP 18–22; TEMP 36.6–36.8; O2SAT 86–95; BMI 35.6; BMI 35.2
--- NOTE | 2024-12-14 17:20 | EKG12_ITS ---
Test Reason : GENERAL ILLNESS Blood Pressure : */* mmHG Vent. Rate : 79 BPM Atrial Rate : 79 BPM P-R Int : 170 ms QRS Dur : 84 ms QT Int : 418 ms P-R-T Axes : 19 -6 42 degrees QTcB Int : 479 ms Normal sinus rhythm Normal ECG Confirmed by ROSEY BAUTISTA, ENEIDA ([id number]), assistant production editor MATHEW VORA ([id number]) on 12/17/2024 7:20:10 AM Referred By: Mahesh Menon Confirmed By: ENEIDA CURRIE MD
--- NOTE | 2024-12-14 17:30 | RAD_ITS ---
PROCEDURE: CHEST 1 VIEW (PORTABLE) REASON FOR EXAM: Cough. TECHNIQUE: Frontal view of the chest. COMPARISON: None. FINDINGS: Right chest infusion port. The cardiac and mediastinal contours are normal. Tkdeo-yuvuqiz-kfku-left basilar opacities which may represent infiltrate or atelectasis. RAD/Chest 1 View (Portable) IMPRESSION: Bibasilar infiltrate versus atelectasis. Reading Location: [id number]
[2024-12-14 18:04] LABS: Absolute Lymphocyte Count 0.96 X10^3/uL (0.83-4.51); Basophil# 0.04 X10^3/uL; Basophil% 0.8 % (0-1); Eosinophil# 0.31 X10^3/uL; Eosinophils% 5.9 % (0-5); Hematocrit 37.9 % (40-54); Hemoglobin 12.2 g/dL (13.0-16.5); Lymphocyte # 0.96 X10^3/ul (0.83-4.51); Lymphocyte % 18.3 % (19-41); Mean Corp Hgb Conc 32.2 g/dL (32-36); Mean Corpuscular Hgb 23.1 pg (27.0-32.0); Mean Corpuscular Volume 71.9 fL (80-94); Mean Platelet Vol. 9.2 fl (6.2-12.0); Monocyte# 0.75 X10^3/uL; Monocyte% 14.3 % (0-10); NRBC Flagged by Analyzer 0 % (0-5); Neutrophil # 3.02 X10^3/uL (2.7-7.7); Neutrophil % 57.3 % (47-70); Platelet Count 229 K/mm3 (150-450); RBC Distribution Width CV 19.9 % (11.6-14.6); RBC Distribution Width SD 50.8 fl (35.1-43.9); Red Blood Count 5.27 M/mm3 (4.6-6.2); White Blood Count 5.3 K/mm3 (4.4-11.0)
--- NOTE | 2024-12-14 18:19 | EDS_ITS ---
HPI History of Present Illness Chief Complaint: General Illness Narrative Narrative: 69-year-old male, past medical history of COPD but does not wear oxygen or use medications, presents with upper respiratory infection type symptoms, and shortness of breath with cough that has had for at least 10 days. He and his relate history that he was seen at [facility] and started on antibiotics. He took the entire course of therapy for a week then saw his primary care provider who placed him on Levaquin 750 as a stronger antibiotic to treat his cough and sinus infection. Of note, he states that he has history of cancer of his lung, kidney, and he also had brain carcinoma. As he has a Mediport in his chest. He is a former smoker as well. [facility] Medical History History of steroid therapy Low iron Seizures Shortness of breath on exertion History of pain when walking History of edema History of echocardiogram Cardiology follow-up encounter Cervical spinal cord injury Cervical stenosis of spine Numbness in right leg RUE numbness Diarrhea Hypokalemia Duodenal ulcer Anemia Diabetes mellitus, type 2 Hyperglycemia Hyponatremia Thrombocytopenia Pulmonary emboli COPD (chronic obstructive pulmonary disease) Imbalance Brain metastasis Pneumonia Sinus congestion Hx of radiation therapy Brain metastasis Frequent headaches Epistaxis Contact with or suspected exposure to other viral communicable disease Iron deficiency anemia due to chronic blood loss Encounter for immunotherapy Encounter for immunotherapy COVID-19 Nonrheumatic aortic (valve) stenosis with insufficiency Elevated troponin (05/15/21) Encephalopathy (05/15/21) Seizure (05/15/21) Metastatic renal cell carcinoma to lung Dyspnea Metastasis to adrenal gland Port-A-Cath in place Atherosclerotic heart disease of [place] coronary artery without angina pectoris Hyperlipidemia Wears glasses Wears dentures Gastric reflux Former smoker History of primary malignant neoplasm of left kidney 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 Skin cancer Abnormal colonoscopy Essential (primary) hypertension COPD (chronic obstructive pulmonary disease) Adenocarcinoma of right lung Home Medications ?Medication ?Instructions ?Recorded ?Last Taken ?Type rosuvastatin 40 mg tablet (Crestor) 40 mg PO DAILY CHO LESTEROL 08/18/18 12/13/24 History carvedilol 25 mg tablet 25 mg PO BID blood pressure 04/30/21 12/14/24 10:00 History albuterol sulfate 90 mcg/actuation 1 puff inhalation Q 6H PRN SOB 05/31/21 06/12/21 History aerosol inhaler hydralazine 50 mg tablet 50 mg PO BID diuretic 12/14/24 10:00 History apixaban 5 mg tablet (Eliquis) 2.5 mg (1/2 x 5 mg) PO BID #60 tabs 07/20/23 12/14/24 10:00 Rx amlodipine 10 mg tablet 10 mg PO DAILY Check with pr imary 08/21/23 12/14/24 10:00 Rx doctor #90 tabs ipratropium 0.5 mg-albuterol 3 mg 3 ml inhalation Q4H PRN shortness 09/07/23 Unknown Rx (2.5 mg base)/3 mL nebulization of breath or wheezing #180 mL soln omeprazole 20 mg capsule,delayed 20 mg PO QDAY 4 12/14/24 History release acetaminophen 500 mg tablet 500 mg PO Q6H PRN fever or pain 08/05/24 Unknown History lidocaine-prilocaine 2.5 %-2.5 % 1 applic topical ONCE PRN Port 09/07/24 Unknown Rx topical cream access 30 days #30 grams pembrolizumab 25 mg/mL intravenous 200 mg IV .COMPLEX 12/14/24 11/30/24 History solution (Keytruda) Allergy/AdvReac Type Severity Reaction Status Date / Time No Known Allergies Allergy Verified 12/14/24 17:17 Family History Sister Diabetes CAD (coronary artery disease) Mother CVA (cerebral vascular accident) CAD (coronary artery disease) Lung cancer Father CAD (coronary artery disease) Brother CAD (coronary artery disease) Surgical History H/O cervical discectomy History of cataract surgery History of lobectomy of lung History of nephrectomy, left History of coronary angioplasty (01/05/04) History of coronary artery stent placement (07/17/03) Social History Smoking Status: Former smoker Tobacco: How many years used: 40 second hand exposure: No alcohol intake: current alcohol intake frequency: a few times a month Alcohol type: beer substance use type: does not use seatbelt use: always do you feel safe at home: Yes ROS ROS ED ROS Narrative Constitutional: No fever, no chills. HEENT: No sore throat. No neck pain. Positive sinus congestion. Cardiovascular: No chest pain. No palpitations. No pedal edema. Respiratory: Positive cough, positive dyspnea on exertion shortness of breath. Abdominal: No abdominal pain. Positive nausea, no vomiting, this was after starting Levaquin. Genitourinary: No dysuria. No hematuria. Musculoskeletal: No myalgias. No arthralgias. Neurologic: No headaches. No dizziness. No lightheadedness. Skin: No rash. No change in color. P EXAM Physical Exam Narrative Exam Narrative: Afebrile. Vital signs noted. Nontoxic-appearing. Cardiovascular examination reveals a regular rate and rhythm. He has diffuse expiratory wheezing on occasion and coarse breath sounds, no accessory muscle use, able to speak in full sentences. Abdomen is soft and nontender with positive bowel sounds, no guarding or rebound. Neurological examination is nonfocal and nonlateralizing. Const Vital Signs: 12/14/24 17:17 12/14/24 17:17 12/14/24 18:23 Temperature 98 F Temperature Source Oral Pulse Rate 81 Respiratory Rate 20 H Respiratory Effort Respiratory Pattern Blood Pressure 117/66 Blood Pressure Mean 83 Pulse Ox 86 94 Oxygen Delivery Method Room Air Nasal Cannula Room Air Oxygen Flow Rate (L/min) 2 12/14/24 18:55 12/14/24 19:00 12/14/24 19:10 Temperature Temperature Source Pulse Rate 77 78 Respiratory Rate 18 22 H Respiratory Effort Normal Non-Labored Respiratory Pattern Normal Tachypnea Blood Pressure 125/58 H Blood Pressure Mean 79 Pulse Ox 95 Oxygen Delivery Method Oxygen Flow Rate (L/min) 12/14/24 21:00 Temperature Temperature Source Pulse Rate 83 Respiratory Rate 18 Respiratory Effort Respiratory Pattern Blood Pressure 126/69 H Blood Pressure Mean 88 Pulse Ox 95 Oxygen Delivery Method Oxygen Flow Rate (L/min) MDM MDM MDM Narrative Medical decision making narrative: Differential diagnosis includes but not limited to pneumonia versus pneumothorax versus COPD exacerbation versus CHF. This really have a history of CHF. I have low suspicion for pulmonary embolism as well. He was 86% on room air upon arrival satting 93% on nasal cannula oxygen. I reviewed his laboratory work and he has normal white count of 5.3 with hemoglobin 12.2 and hematocrit 37.9, platelet count normal at 229. Sodium slightly low 130 with potassium 3.1 consistent with mild dehydration. Patient bolused normal saline [address] O2 is low at 19. Glucose normal at 99. High-sensitivity troponin is 7. I feel this is greater than a 6-hour troponin and that he does not need serial enzymes. EKG obtained and interpreted by myself independently as normal sinus rhythm at 79 bpm without ectopy or acute ST changes. No STEMI. Chest x-ray interpreted by myself independently shows bibasilar atelectasis. I reviewed the radiology report which confirms my independent interpretation but states it may be bilateral infiltrates as well. He has already been on antibiotics for the last 10 days. On ambulation, he is hypoxic at 84% on room air and does not wear oxygen at home. He had been given a DuoNeb aerosolized treatment and I will add Solu-Medrol 125 mg intravenously for a COPD exacerbation. Respiratory swabs obtained and reviewed and he is negative for COVID, influenza, and RSV. At this point in time, patient will be discussed with Dr. Sayra Fuentes for admission for COPD and hypoxia. I do not feel IV antibiotics are indicated. Patient is in stable condition. History & Record Review Discussion w/independent historian: Patient and Family Lab Data Attestation: I reviewed the patient's lab results. Labs: Laboratory Results - last 24 hr 12/14/24 17:46 WBC 5.3 RBC 5.27 Hgb 12.2 L Hct 37.9 L MCV 71.9 L MCH 23.1 L MCHC 32.2 RDW Std Deviation 50.8 H RDW Coeff of Kailey 19.9 H Plt Count 229 MPV 9.2 Immature Gran % (Auto) 3.400 H Neut % (Auto) 57.3 Lymph % (Auto) 18.3 L [place] % (Auto) 14.3 H Eos % (Auto) 5.9 H Baso % (Auto) 0.8 Absolute Neuts (auto) 3.0 Absolute Lymphs (auto) 0.96 Nucleated RBC % 0 Sodium 130 L Potassium 3.1 L Chloride 102 Carbon Dioxide 19.0 L Anion Gap 10 BUN 8 Creatinine 1.00 Estim Creat Clear Calc 72.58 Est GFR (MDRD) Af Amer 95 Est GFR (MDRD) Non-Af 78 BUN/Creatinine Ratio 8.0 L Glucose 99 Calcium 8.4 L Troponin I High Sens 7 Radiography Diagnostic Testing: Clinical Impression(s) from Imaging Studies Chest X-Ray 12/14/24 17:30 IMPRESSION: Bibasilar infiltrate versus atelectasis. Reading Location: [facility] Management Discussion w/another healthcare provider: Hospitalist Discharge Plan Dx/Rx/DC Orders Clinical Impression: COPD exacerbation, Hypoxia, Hyponatremia Disposition Disposition: Acute Care Hospital [facility]
[2024-12-14 18:29] LABS: Anion Gap 10 (5-15); BUN 8 mg/dL (7-18); Calcium,Total 8.4 mg/dL (8.5-10.1); Chloride 102 mmol/L (98-107); EST Glomerular Filtration Rate 78 mL/min (>60); Est Glom Filt Rate - Afr Amer 95 mL/min (>60); Estimated Creatinine Clearance 72.58 ml/min; Glucose 99 mg/dL (74-106); Potassium 3.1 mmol/L (3.5-5.1); Sodium Level 130 mmol/L (136-145); Troponin-I HS 7 pg/mL (3.0-78.0)
[2024-12-14] MEDS: 0.9% Normal Saline (1000mL) 1,000 ML 999 ML IV (19:03)
[2024-12-14] MEDS: Ipratropium/Albuterol Sulfate 3 ML AMPUL.NEB INHALATION (19:04)
[2024-12-14] MEDS: MethylPREDNISolone 125 MG/2 ML Vial IV (20:56)
--- NOTE | 2024-12-14 21:13 | HP.PCM.HOS_ITS ---
HPI - General General Date of Admission: 12/14/24 Date of Service: 12/14/24 Chief Complaint: Dyspnea, cough, wheezing. HPI Narrative The patient is a 69-year-old male with past medical history obesity, CKD stage II per previous GFR trending, seizure disorder, diabetes mellitus type 2, GERD with history of duodenal ulcer with history of previous GI bleed, chronic headaches, COPD, chronic thrombocytopenia, history of VTE with DVT/PE, chronic hyponatremia, metastatic renal cell carcinoma to the lung status post left nephrectomy and lobectomy, CAD status post PCI, former tobacco use, chronic anemia who presents to the [facility] ED on 12/14/2024 with history of recent URI type illness ongoing for the last 10 days with symptoms including nausea without emesis, decreased appetite, rhinorrhea and congestion, cough and shortness of breath with also fevers and chills with minute clinic evaluation outpatient with initiation of antibiotic therapy completing the entire course then following up with his primary care physician who placed him on Levaquin 750 mg at that time taking 4 doses but given his persistent symptoms increasing fatigue malaise prompted eventual ED evaluation to be cautious. Workup in the ED included T98, heart rate 81, BP 117/66, respiratory rate 20, initially 86% on room air with most recent repeat vital signs T98.3, heart rate 80, BP 138/58, respiratory rate 18, 93% on 2 L nasal cannula, CBC with WBC 5.3, human 12.2, MCV 71.9, platelet 229 with increased immature granulocytes, BMP with sodium 130, potassium 3.1, come back side 19, BUN/creatinine 8/1.0, GFR 78, calcium 8.4, troponin 7, chest x-ray with bibasilar infiltrate versus atelectasis, EKG with sinus rhythm with no acute evidence of ischemia, rapid SARS COVID/influenza/RSV PCR negative. In the ED patient ministered 1 L normal saline, DuoNeb therapy as well as Solu- Medrol 125 mg IV x 1. minutes. [facility] Medical History History of steroid therapy Low iron Seizures Shortness of breath on exertion History of pain when walking History of edema History of echocardiogram Cardiology follow-up encounter Cervical spinal cord injury Cervical stenosis of spine Numbness in right leg RUE numbness Diarrhea Hypokalemia Duodenal ulcer Anemia Diabetes mellitus, type 2 Hyperglycemia Hyponatremia Thrombocytopenia Pulmonary emboli COPD (chronic obstructive pulmonary disease) Imbalance Brain metastasis Pneumonia Sinus congestion Hx of radiation therapy Brain metastasis Frequent headaches Epistaxis Contact with or suspected exposure to other viral communicable disease Iron deficiency anemia due to chronic blood loss Encounter for immunotherapy Encounter for immunotherapy COVID-19 Nonrheumatic aortic (valve) stenosis with insufficiency Elevated troponin (05/15/21) Encephalopathy (05/15/21) Seizure (05/15/21) Metastatic renal cell carcinoma to lung Dyspnea Metastasis to adrenal gland Port-A-Cath in place Atherosclerotic heart disease of [place] coronary artery without angina pectoris Hyperlipidemia Wears glasses Wears dentures Gastric reflux Former smoker History of primary malignant neoplasm of left kidney 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 Skin cancer Abnormal colonoscopy Essential (primary) hypertension COPD (chronic obstructive pulmonary disease) Adenocarcinoma of right lung Home Medications ?Medication ?Instructions ?Recorded ?Last Taken ?Type rosuvastatin 40 mg tablet (Crestor) 40 mg PO DAILY CHO LESTEROL 08/18/18 12/13/24 History carvedilol 25 mg tablet 25 mg PO BID blood pressure 04/30/21 12/14/24 10:00 History albuterol sulfate 90 mcg/actuation 1 puff inhalation Q 6H PRN SOB 05/31/21 06/12/21 History aerosol inhaler hydralazine 50 mg tablet 50 mg PO BID diuretic 12/14/24 10:00 History apixaban 5 mg tablet (Eliquis) 2.5 mg (1/2 x 5 mg) PO BID #60 tabs 07/20/23 12/14/24 10:00 Rx amlodipine 10 mg tablet 10 mg PO DAILY Check with pr imary 08/21/23 12/14/24 10:00 Rx doctor #90 tabs ipratropium 0.5 mg-albuterol 3 mg 3 ml inhalation Q4H PRN shortness 09/07/23 Unknown Rx (2.5 mg base)/3 mL nebulization of breath or wheezing #180 mL soln omeprazole 20 mg capsule,delayed 20 mg PO QDAY 4 12/14/24 History release acetaminophen 500 mg tablet 500 mg PO Q6H PRN fever or pain 08/05/24 Unknown History lidocaine-prilocaine 2.5 %-2.5 % 1 applic topical ONCE PRN Port 09/07/24 Unknown Rx topical cream access 30 days #30 grams pembrolizumab 25 mg/mL intravenous 200 mg IV .COMPLEX 12/14/24 11/30/24 History solution (Keytruda) Allergy/AdvReac Type Severity Reaction Status Date / Time No Known Allergies Allergy Verified 12/14/24 17:17 Family History Sister Diabetes CAD (coronary artery disease) Mother CVA (cerebral vascular accident) CAD (coronary artery disease) Lung cancer Father CAD (coronary artery disease) Brother CAD (coronary artery disease) Surgical History H/O cervical discectomy History of cataract surgery History of lobectomy of lung History of nephrectomy, left History of coronary angioplasty (01/05/04) History of coronary artery stent placement (07/17/03) Social History (Updated 12/15/24 @ 01:[address] Sayra Fuentes MD) household members: spouse Smoking Status: Former smoker Tobacco: How many years used: 40 second hand exposure: No alcohol intake: current alcohol intake frequency: a few times a month Alcohol type: beer substance use type: does not use seatbelt use: always do you feel safe at home: Yes ROS ROS Narrative Admission Review of Systems: CONSTITUTIONAL: No weight loss, + fever, chills, weakness or fatigue. HEENT: + Congestion, rhinorrhea. Eyes: No visual loss, blurred vision, double vision or yellow sclerae. Ears, Nose, Throat: No hearing loss, sneezing. SKIN: No rash or itching, lesions, wounds. CARDIOVASCULAR: No chest pain, chest pressure or chest discomfort, palpitations, edema, orthopnea, syncopal events. RESPIRATORY: + Not markedly productive cough, dyspnea, wheezing. No hemoptysis. GASTROINTESTINAL: + Decreased appetite/anorexia, nausea without emesis. No diarrhea, abdominal pain, melena, BRBPR. GENITOURINARY: No dysuria, frequency, urgency or retention. NEUROLOGICAL: No headache, dizziness, syncope, paralysis, ataxia, numbness or tingling in the extremities, focal weakness, change in bowel or bladder control, seizure. MUSCULOSKELETAL: + muscle, back pain, joint pain or stiffness. HEMATOLOGIC: + Chronic anemia, easy bleeding/bruising. LYMPHATICS: No enlarged nodes. No history of splenectomy. PSYCHIATRIC: No history of depression or anxiety. ENDOCRINOLOGIC: No reports of sweating, cold or heat intolerance. No polyuria or polydipsia. ALLERGIES: + History of allergic rhinitis. Vital Signs Vital Signs Vital Signs: 12/14/24 17:17 12/14/24 17:17 12/14/24 18:23 Temperature 98 F Temperature Source Oral Pulse Rate 81 Respiratory Rate 20 H Respiratory Effort Respiratory Pattern Blood Pressure 117/66 Blood Pressure Mean 83 Pulse Ox 86 94 Oxygen Delivery Method Room Air Nasal Cannula Room Air Oxygen Flow Rate (L/min) 2 12/14/24 18:55 12/14/24 19:00 12/14/24 19:10 Temperature Temperature Source Pulse Rate 77 78 Respiratory Rate 18 22 H Respiratory Effort Normal Non-Labored Respiratory Pattern Normal Tachypnea Blood Pressure 125/58 H Blood Pressure Mean 79 Pulse Ox 95 Oxygen Delivery Method Oxygen Flow Rate (L/min) 12/14/24 21:00 Temperature Temperature Source Pulse Rate 83 Respiratory Rate 18 Respiratory Effort Respiratory Pattern Blood Pressure 126/69 H Blood Pressure Mean 88 Pulse Ox 95 Oxygen Delivery Method Oxygen Flow Rate (L/min) Weight Weight: 214 lb 1.102 oz Body Mass Index (BMI) 35.6 Physical Exam Narrative Physical Examination: General: Awake, alert, oriented x 3 and cooperative, seated upright in the ED bed, fatigued and ill-appearing. Skin: Normal color, normal turgor, no icterus, no cyanosis except occasional stage ecchymoses, abrasion HEENT: AT/NC, EOMI, PERRLA, dry MM, no carotid bruits or JVD noted. Lungs: Diminished, greater bases, mildly increased respiratory rate but no distress, diffuse soft end expiratory wheezes, no rales or rhonchi. Heart: Regular rate and rhythm; no gallop, rub audible. Abdomen: Soft, NTTP, ND, normal BS, no HSM. Extremities: No cyanosis, clubbing, or edema. Neurological: Patient awake, alert, oriented as noted, cognitive function intact; pupils equally reactive to light and accommodation, cranial nerves grossly normal, moving all 4 extremities, no focal deficits, strength moderately to severely globally decreased secondary to acute presentation. Psychiatric: Affect appears flat, fatigued, ill-appearing, no acute evidence of depressive or anxiety feelings. Results Lab / Micro Data 12/14/24 17:46 12/14/24 17:46 Labs: Laboratory Results - last 24 hr 12/14/24 17:46: WBC 5.3, RBC 5.27, Hgb 12.2 L, Hct 37.9 L, MCV 71.9 L, MCH 23.1 L, MCHC 32.2, RDW Std Deviation 50.8 H, RDW Coeff of Kailey 19.9 H, Plt Count 229, MPV 9.2, Immature Gran % (Auto) 3.400 H, Neut % (Auto) 57.3, Lymph % (Auto) 18.3 L, [place] % (Auto) 14.3 H, Eos % (Auto) 5.9 H, Baso % (Auto) 0.8, Absolute Neuts (auto) 3.0, Absolute Lymphs (auto) 0.96, Nucleated RBC % 0, Sodium 130 L, P otassium 3.1 L, Chloride 102, Carbon Dioxide 19.0 L, Anion Gap 10, BUN 8, Creatinine 1.00, Estim Creat Clear Calc 72.58, Est GFR (MDRD) Af Amer 95, Est GFR (MDRD) Non-Af 78, BUN/Creatinine Ratio 8.0 L, Glucose 99, Calcium 8.4 L, Troponin I High Sens 7 Micro: Microbiology 12/14/24 18:23 Mucosa - Nose SARS-CoV-2, Influenza & RSV (PCR) - Final Imaging Radiology Impression Chest X-Ray 12/14/24 17:30 IMPRESSION: Bibasilar infiltrate versus atelectasis. Reading Location: [id number] Assessment & Plan Assessment/Plan (1) Hypoxia: (2) COPD exacerbation: PLAN: Plan The patient is a 69-year-old male with past medical history obesity, CKD stage II per previous GFR trending, seizure disorder, diabetes mellitus type 2, GERD with history of duodenal ulcer with history of previous GI bleed, chronic headaches, COPD, chronic thrombocytopenia, history of VTE with DVT/PE, chronic hyponatremia, metastatic renal cell carcinoma to the lung status post left nephrectomy and lobectomy, CAD status post PCI, former tobacco use, chronic anemia who presents to the [facility] ED on 12/14/2024 with history of recent URI type illness ongoing for the last 10 days with symptoms including nausea without emesis, decreased appetite, rhinorrhea and congestion, cough and shortness of breath with also fevers and chills with minute clinic evaluation outpatient with initiation of antibiotic therapy completing the entire course then following up with his primary care physician who placed him on Levaquin 750 mg at that time taking 4 doses but given his persistent symptoms increasing fatigue malaise prompted eventual ED evaluation to be cautious. #1. Acute Hypoxia secondary to Acute on Chronic COPD exacerbation suspected secondary to recent acute viral illness, suspect atelectasis, lower suspicion for pneumonia: Will admit to [facility] given stable vital sign, maintain on oxygen with wean as tolerated to room air, maintain on ATC budesonide therapy, PRN albuterol, IV methylprednisolone, HOB, IS parameters, will obtain sputum Cx, respiratory viral panel, procalcitonin, will hold on immediately adding back abx therapy but low threshold to add if appropriate. #2. Acute on chronic hyponatremia, suspected component hypovolemia given acute illness: Admission sodium 130, more recent values have been in normal range, suspect for intake with his acute presentation, will judiciously hydrate and repeat CMP in AM. #3. Hypokalemia: Admission K+ 3.1, magnesium level requested, supplementation given, repeat level in AM. #4. Chronic Kidney Disease Stage II per GFR trending: Admission BUN/Cr 8/1.0, GFR 78, baseline renal function primarily 0.9-1.2, repeat BMP in AM. #5. Chronic microcytic anemia: Admission hemoglobin 12.2, MCV 71.9, baseline hemoglobin primarily 11-12, stable, continue to trend. #6. Hypertension: Continue home regimen including Coreg, hydralazine, amlodipine with hold parameters as needed, PRN hydralazine. #7. Hyperlipidemia: We will continue patient on statin therapy. #8. CAD: Status post previous PCI, will continue patient apixaban, statin, Coreg, not on XIN inhibitor/ARB. #9. History of VTE: Patient with history of previous DVT, PE, continue patient chronic Eliquis regimen. #10. History of metastatic renal cell carcinoma, history of brain tumor unclear if this was metastatic or not with associated previous seizure history: Patient with history of metastatic renal cell carcinoma status post left nephrectomy with metastatic disease to the lung status post also lobectomy, chart history of questionable some type of brain tumor but uncertain if this was metastatic and unclear previous interventions, currently per record maintained outpatient on Keytruda, encourage continued outpatient follow-up with oncology as previously arranged. #11. Obesity: Weight loss and lifestyle changes encouraged. #12. GERD with history of duodenal ulcer disease status post previous GI bleed: We will continue patient on PPI. #13. Former tobacco use: Encourage continued tobacco cessation. #14. DVT prophylaxis: Continue patient on apixaban regimen. #15. CODE status: Patient does not have healthcare power of civil litigation attorney or living will in place but he notes his who is present would be his medical decision-maker if necessary. Discussed CODE status at length including difference between FULL code, DNR-CCA and DNR-CC status. Following discussions about the differences in these status, requested DNR-CCA with intubation allowance short term only with several examples given and status confirmed. Advanced Care Planning Face to Face Time: 16 minutes. Charges/Coding Visit Charges Inpatient E&M: 68781 Init Hosp L3 Procedures Hospitalists Procedures: 70531 Advncd Care Plan 30 Min
[2024-12-14 22:16] LABS: Magnesium 1.5 mg/dL (1.6-2.6)
[2024-12-14] MEDS: 0.9% Normal Saline (1000mL) 1,000 ML 100 ML IV (22:45)
[2024-12-14] MEDS: Potassium Chloride Oral Tablet 20 MEQ 40 MEQ PO (23:24)
[2024-12-14] MEDS: hydrALAZINE 50 MG Tablet PO (23:24)
[2024-12-14 23:48] LABS: Bedside Glucose 118 mg/dL (74-106)
[2024-12-15] VITALS (8 sets, daily range): BP systolic 133–143; BP diastolic 62–74; PULSE 77–93; RESP 18–20; TEMP 36.6–37; O2SAT 94–97; BMI 35.2
[2024-12-15 01:09] LABS: Procalcitonin 0.16 ng/mL (0.00-0.09)
[2024-12-15] MEDS: Magnesium Sulfate 2 GM in Dextrose 5%-Water (100mL Bag) 100 ML IV (02:06)
[2024-12-15 04:47] LABS: Absolute Neutrophil Count 2.6 X10^3/uL (2.0-7.7); Basophil# 0.03 X10^3/uL; Basophil% 0.9 % (0-1); Eosinophil# 0.01 X10^3/uL; Eosinophils% 0.3 % (0-5); Hematocrit 38.8 % (40-54); Hemoglobin 12.5 g/dL (13.0-16.5); Lymphocyte % 15.2 % (19-41); Mean Corp Hgb Conc 32.2 g/dL (32-36); Mean Corpuscular Hgb 23.1 pg (27.0-32.0); Mean Corpuscular Volume 71.7 fL (80-94); Mean Platelet Vol. 9.1 fl (6.2-12.0); Monocyte# 0.07 X10^3/uL; Monocyte% 2.1 % (0-10); NRBC Flagged by Analyzer 0 % (0-5); Neutrophil # 2.55 X10^3/uL (2.7-7.7); Neutrophil % 77.5 % (47-70); POSITIVE DIFFERENTIAL YES; Platelet Count 205 K/mm3 (150-450); RBC Distribution Width CV 19.4 % (11.6-14.6); RBC Distribution Width SD 49.1 fl (35.1-43.9); Red Blood Count 5.41 M/mm3 (4.6-6.2); White Blood Count 3.3 K/mm3 (4.4-11.0)
[2024-12-15 05:11] LABS: ALB/GLOB Ratio 0.9 RATIO (0.9-2.4); AST(SGOT) 13 U/L (15-37); Alanine Aminotransfer ALT/SGPT 13 U/L (16-61); Albumin, Serum 2.8 g/dL (3.2-5.0); Alkaline Phosphatase 56 U/L (45-117); Anion Gap 13 (5-15); BUN 9 mg/dL (7-18); BUN/Creat Ratio 8.7 RATIO (10-20); Calcium,Total 8.8 mg/dL (8.5-10.1); Chloride 104 mmol/L (98-107); Creatinine, Serum 1.03 mg/dL (0.70-1.30); EST Glomerular Filtration Rate 76 mL/min (>60); Est Glom Filt Rate - Afr Amer 92 mL/min (>60); Estimated Creatinine Clearance 70.02 ml/min; Globulin 3.1 g/dL (2.2-4.2); Glucose 174 mg/dL (74-106); Magnesium 2.5 mg/dL (1.6-2.6); Protein, Total 5.9 g/dL (6.4-8.2); Sodium Level 132 mmol/L (136-145)
[2024-12-15] MEDS: 0.9% Saline Lock 10 ML Syringe IV (05:38)
[2024-12-15 05:53] LABS: Bedside Glucose 168 mg/dL (74-106)
[2024-12-15] MEDS: Budesonide Respules 0.5 MG/2 ML AMPUL.NEB. INHALATION ×2 (07:04→20:29)
[2024-12-15] MEDS: Carvedilol 25 MG Tablet PO ×2 (09:49→16:52)
[2024-12-15] MEDS: hydrALAZINE 50 MG Tablet PO ×2 (09:50→20:50)
[2024-12-15] MEDS: Glucerna Shake 120 ML LIQUID PO ×2 (09:50→12:43)
[2024-12-15] MEDS: amLODIPine 10 MG Tablet PO (09:51)
[2024-12-15] MEDS: APIXABAN 2.5 MG TABLET (WCH) PO ×2 (09:51→20:50)
[2024-12-15] MEDS: Pantoprazole Sodium 20 MG Tablet PO (09:52)
[2024-12-15] MEDS: Insulin Lispro 100 UNIT/ML INSULN.PEN SC ×3 (12:42→20:49)
[2024-12-15 13:03] LABS: Bedside Glucose 205 mg/dL (74-106)
--- NOTE | 2024-12-15 14:54 | PCM.PROGNOTE ---
Subjective Subjective Patient seen and examined. He had no active complaints. He said he felt much better. He felt his breathing had improved. He is on 2 L of oxygen. He denies any cough or chest pain, palpitations, dizziness, nausea vomiting or any other symptoms. Review of systems otherwise negative. Objective Data Objective Data Vital Signs: Vital Signs Temp Pulse Resp BP Pulse Ox O2 Del Method O2 Flow Rate 97.9 F 92 18 141/71 H 94 Nasal Cannula 2 12/15/24 09:30 12/15/24 09:50 12/15/24 09:30 12/15/24 09:50 12/15/24 09:30 12/15/24 09:30 12/15/24 09:30 Oxygen Flow Rate (L/min) 2 Oxygen Delivery Method Nasal Cannula Weight: 211 lb 6.773 oz Body Mass Index (BMI) 35.2 Intake & Output: Intake and Output for Last 24 Hours 12/13/24 12/14/24 12/15/24 23:59 23:59 23:59 Intake Total 1000 / 1000 1104 / 1104 Balance 1000 / 1000 1104 / 1104 Lab / Micro Data 12/15/24 04:20 12/15/24 04:20 Labs: Laboratory Results - last 24 hr 12/14/24 17:46: WBC 5.3, RBC 5.27, Hgb 12.2 L, Hct 37.9 L, MCV 71.9 L, MCH 23.1 L, MCHC 32.2, RDW Std Deviation 50.8 H, RDW Coeff of Kailey 19.9 H, Plt Count 229, MPV 9.2, Immature Gran % (Auto) 3.400 H, Neut % (Auto) 57.3, Lymph % (Auto) 18.3 L, [place] % (Auto) 14.3 H, Eos % (Auto) 5.9 H, Baso % (Auto) 0.8, Absolute Neuts (auto) 3.0, Absolute Lymphs (auto) 0.96, Nucleated RBC % 0, Sodium 130 L, Potassium 3.1 L, Chloride 102, Carbon Dioxide 19.0 L, Anion Gap 10, BUN 8, Creatinine 1.00, Estim Creat Clear Calc 72.58, Est GFR (MDRD) Af Amer 95, Est GFR (MDRD) Non-Af 78, BUN/Creatinine Ratio 8.0 L, Glucose 99, Calcium 8.4 L, Magnesium 1.5 L, Troponin I High Sens 7 12/14/24 23:23: POC Glucose 118 H 12/15/24 00:20: Procalcitonin 0.16 H 12/15/24 04:20: WBC 3.3 L, RBC 5.41, Hgb 12.5 L, Hct 38.8 L, MCV 71.7 L, MCH 23.1 L, MCHC 32.2, RDW Std Deviation 49.1 H, RDW Coeff of [place] 19.4 H, Plt Count 205, MPV 9.1, Immature Gran % (Auto) 4.000 H, Neut % (Auto) 77.5 H, Lymph % (Auto) 15.2 L, [place] % (Auto) 2.1, Eos % (Auto) 0.3, Baso % (Auto) 0.9, Absolute Neuts (auto) 2.6, Absolute Lymphs (auto) 0.50 L, Nucleated RBC % 0, Sodium 132 L, Potassium 4.0, Chloride 104, Carbon Dioxide 15.0 L, Anion Gap 13, BUN 9, Creatinine 1.03, Estim Creat Clear Calc 70.02, Est GFR (MDRD) Af Amer 92, Est GFR (MDRD) Non-Af 76, BUN/Creatinine Ratio 8.7 L, Glucose 174 H, Calcium 8.8, Magnesium 2.5, Total Bilirubin 0.40, AST 13 L, ALT 13 L, Alkaline Phosphatase 56, Total Protein 5.9 L, Albumin 2.8 L, Globulin 3.1, Albumin/Globulin Ratio 0.9 12/15/24 05:33: POC Glucose 168 H 12/15/24 12:36: POC Glucose 205 H Micro: Microbiology 12/14/24 22:53 Mucosa - Nasopharyngeal Respiratory Panel (PCR) - Final 12/14/24 23:41 Urine, Clean Catch Legionella Antigen - Final 12/14/24 23:41 Urine, Clean Catch Streptococcus pneumoniae Antigen (M - Final 12/14/24 18:23 Mucosa - Nose SARS-CoV-2, Influenza & RSV (PCR) - Final Radiography Diagnostic Testing: Radiology Impression Chest X-Ray 12/14/24 17:30 IMPRESSION: Bibasilar infiltrate versus atelectasis. Reading Location: [facility] Physical Exam Const alert, oriented x3 and no apparent distress General Appearance: cooperative and well developed HEENT normocephalic, head/scalp atraumatic, moist oral mucous membranes and oropharynx normal Eyes PERRL and EOMs intact bilaterally Neck no lymphadenopathy and supple Lymph Lymphatic: no lymphadenopathy noted and no lymphedema noted Resp Resp Narrative: mildly diminished breath sounds bibasally, few crackles. On 2L of oxygen by nasal canula Cardio regular rate, regular rhythm, S1 normal heart sound, S2 normal heart sound and no murmurs GI normal to inspection, nondistended, normoactive bowel sounds, soft to palpation and non-tender Extremity normal capillary refill, no clubbing, cyanosis or edema and no calf tenderness General Extremity: no tenderness to palpation of joints or extremities Skin General Skin Exam: no breakdown Neuro CN's II-XII intact bilaterally, no focal motor deficits and no sensory deficits noted Motor Exam: strength 5/5 throughout and general weakness Psych thought process normal, cooperative and affect normal Appearance: appropriate Assessment & Plan Assessment/Plan (1) COPD exacerbation: (2) Hypoxia: PLAN: Plan #Hypoxia due to COPD exacerbation Patient states he feels much better today. On 2 L of oxygen. Respiratory panel negative. On IV Solu-Medrol. Breathing treatments and bronchodilators. Titrate oxygen to maintain saturation above 90%. #Acute on chronic hyponatremia: Improving. I will monitor. #Hypokalemia: Will replace and trend #Non-anion gap metabolic acidosis: Bicarb is 15. Was 19 on admission. Anion gap is 13. Etiology is unclear. Will place patient on oral bicarb due to drop in the bicarb levels. Will monitor. #Hypertension: On Coreg, hydralazine and amlodipine. 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 S/p left nephrectomy. Is also s/p L of the lung due to this provide. On Keytruda. Follow-up with oncology on outpatient basis #GERD, with history of duodenal ulcer: On PPI #DVT prophylaxis: On Eliquis Charges/Coding Visit Charges Inpatient E&M: 00489 Subs Hosp L2
--- NOTE | 2024-12-15 15:57 | CASEMGMT ---
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 RN CM introduced self and role at [facility], pt voices understanding. Pt is A&O and is resting comfortably in bed. @ bedside. Care providers, pharmacy, and demographics verified. Strata: 2 PCP: Dr Jacob Jennings Specialists: Dr Rodriguez- Oncology, Dr Berry-radiation oncology, Dr Sandoval-cardiology, Dr Sutherland-ortho, Dr Acevedo-neuro [facility]. Pt was seeing Dr Chambers, requested referral to Dr Reyes @ [facility]. Pt had 1st appt scheduled tomorrow, has cx'd this d/t pt being in the hospital. Preferred Pharmacy: [facility] @ discharge. Otherwise, pt goes to [facility]. Insurance: MCR A/B, [employer] Prescription Benefit: Yes LNOK: Karen Arshad, . Living Arrangements: Pt lives with his in a split level home, 2 two steps to enter and 5 steps to manage inside the home. He states he does okay with the stairs. Independent w/ADL's and manages his own medications. does home mgnt tasks. Transportation: DME: History of O2 supplied through [employer] but just returned this a couple wks ago d/t was not using. Pt made aware home O2 amb testing would be completed prior to dc and if he qualifies a new Rx would be sent to DME co for new home O2 set up. Pt and state would like to use [employer] again if he does qualify. He has a pulse ox. He also has a nebulizer, but states he does not think it is working right and would like to get another one. He states Dr Malcolm ordered it and thinks they got this from [employer] a couple yrs ago. Call placed to Travon @ [employer], who states he does not have record of pt receiving a nebulizer from [employer] w/in last 6 yrs. He states if pt got it from a different DME co, he may not be able to get another one, if it has been too soon. Pt and made aware. Pt also has a cane and walker available, but does not use. HHC/SNF: Denies history or needs and no needs identified. Pt wishes to return home and states has no concerns with going home at time of discharge. CM?to follow for home oxygen needs and any further discharge planning/needs. Pt and voice no further concerns/needs at this time. Advised them to ask for CM?if any further questions/concerns/needs arise. They voice understanding. Plan: Home. Pt would like a new nebulizer. Follow for possible home O2 Jorge Luis JOHNSON RN CM
[2024-12-15] MEDS: Sodium Bicarbonate 650 MG Tablet PO ×2 (16:11→20:51)
[2024-12-15 16:49] LABS: Bedside Glucose 269 mg/dL (74-106)
[2024-12-15] MEDS: Atorvastatin Calcium 80 MG Tablet PO (20:51)
[2024-12-15 21:36] LABS: Bedside Glucose 254 mg/dL (74-106)
[2024-12-16 03:58] VITALS: BMI 34.0
[2024-12-16 04:20] VITALS: BP 143/56; PULSE 87; RESP 18; TEMP 36.7; O2SAT 92
[2024-12-16] MEDS: Insulin Lispro 100 UNIT/ML INSULN.PEN SC ×2 (04:41→11:06)
[2024-12-16 05:35] LABS: Bedside Glucose 209 mg/dL (74-106)
[2024-12-16 06:55] VITALS: PULSE 88; RESP 16; O2SAT 90
[2024-12-16] MEDS: Budesonide Respules 0.5 MG/2 ML AMPUL.NEB. INHALATION (06:56)
[2024-12-16 07:05] LABS: Absolute Lymphocyte Count 0.35 X10^3/uL (0.83-4.51); Absolute Neutrophil Count 5.4 X10^3/uL (2.0-7.7); Basophil# 0.01 X10^3/uL; Basophil% 0.2 % (0-1); Hematocrit 34.6 % (40-54); Hemoglobin 10.9 g/dL (13.0-16.5); Lymphocyte # 0.35 X10^3/ul (0.83-4.51); Lymphocyte % 5.6 % (19-41); Mean Corp Hgb Conc 31.5 g/dL (32-36); Mean Corpuscular Hgb 22.9 pg (27.0-32.0); Mean Corpuscular Volume 72.5 fL (80-94); Mean Platelet Vol. 9.3 fl (6.2-12.0); Monocyte# 0.31 X10^3/uL; NRBC Flagged by Analyzer 0 % (0-5); Neutrophil # 5.44 X10^3/uL (2.7-7.7); Neutrophil % 86.8 % (47-70); POSITIVE DIFFERENTIAL YES; Platelet Count 203 K/mm3 (150-450); RBC Distribution Width CV 19.4 % (11.6-14.6); RBC Distribution Width SD 50.5 fl (35.1-43.9); Red Blood Count 4.77 M/mm3 (4.6-6.2); White Blood Count 6.3 K/mm3 (4.4-11.0)
[2024-12-16 07:52] LABS: Anion Gap 7 (5-15); BUN 20 mg/dL (7-18); Chloride 110 mmol/L (98-107); Creatinine, Serum 1.11 mg/dL (0.70-1.30); EST Glomerular Filtration Rate 69 mL/min (>60); Est Glom Filt Rate - Afr Amer 84 mL/min (>60); Estimated Creatinine Clearance 63.94 ml/min; Glucose 224 mg/dL (74-106); Sodium Level 137 mmol/L (136-145)
[2024-12-16] MEDS: Carvedilol 25 MG Tablet PO (08:09)
[2024-12-16 08:28] VITALS: BP 139/78; PULSE 90; RESP 18; TEMP 36.8; O2SAT 94
[2024-12-16 09:45] VITALS: BP 139/78; PULSE 90
[2024-12-16] MEDS: amLODIPine 10 MG Tablet PO (09:45)
[2024-12-16] MEDS: APIXABAN 2.5 MG TABLET (WCH) PO (09:45)
[2024-12-16] MEDS: hydrALAZINE 50 MG Tablet PO (09:45)
[2024-12-16] MEDS: Sodium Bicarbonate 650 MG Tablet PO (09:46)
[2024-12-16] MEDS: Pantoprazole Sodium 20 MG Tablet PO (09:49)
--- NOTE | 2024-12-16 09:55 | CASEMGMT ---
Addendum entered by Bianca Santillan 12/16/24 14:40: Home O2 testing has been completed. Pt does not qualify for home O2. Original Note: LUPE GAR NOTE: Call placed to Ofe @ [facility]. She states pt was provided a nebulizer from their office in 2022 and they get the nebulizers from [employer]. Call placed to [employer] @ [phone] and spoke w/DME rep, Sukh. He states pt received the nebulizer 11/24/22 and it is still under a 5-yr warranty. He was made aware pt states it is not working properly. He states he will have a new one shipped out today and states it should arrive to pt's home w/in a couple of days. Pt made aware of above and voices appreciation. He was also provided w/[employer] phone #. DGiaumartha JOHNSON RN, CM
[2024-12-16 11:40] LABS: Bedside Glucose 251 mg/dL (74-106)
[2024-12-16 14:05] VITALS: O2SAT 93; O2SAT 96
[2024-12-16 14:13] VITALS: BP 137/64; PULSE 87; RESP 20; TEMP 36.3; O2SAT 96
[2024-12-16] MEDS: 0.9% Saline Lock 10 ML Syringe IV (14:24)
--- NOTE | 2024-12-16 14:48 | DS.PCM_ITS ---
Providers Date of Admission: 12/14/24 Date of Discharge: 12/16/24 Primary Care Physician: Dr. Jacob Jennings DO Reason For Visit: HYPOXIA, COPD EXACERBATION Diagnosis Discharge Diagnosis (1) COPD exacerbation: Status: Chronic Code(s): J44.1 - Chronic obstructive pulmonary disease with (acute) exacerbation (2) Hypoxia: Status: Acute Code(s): R09.02 - Hypoxemia Plan #Hypoxia due to COPD exacerbation * Patient states he feels much better today. On 2 L of oxygen. Respiratory panel negative. On IV Solu-Medrol. Breathing treatments and bronchodilators. * Titrate oxygen to maintain saturation above 90%. #Acute on chronic hyponatremia: Improving. I will monitor. #Hypokalemia: Will replace and trend #Non-anion gap metabolic acidosis: * Bicarb is 15. Was 19 on admission. Anion gap is 13. * Etiology is unclear. * Will place patient on oral bicarb due to drop in the bicarb levels. * Will monitor. * #Hypertension: On Coreg, hydralazine and amlodipine. 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 S/p left nephrectomy. Is also s/p L of the lung due to this provide. On Keytruda. Follow-up with oncology on outpatient basis * * #GERD, with history of duodenal ulcer: On PPI #DVT prophylaxis: On Eliquis Medications at Discharge Home Medications rosuvastatin 40 mg tablet (Crestor) 40 mg PO DAILY CHOLESTEROL 08/18/18 carvedilol 25 mg tablet 25 mg PO BID blood pressure 04/30/21 albuterol sulfate 90 mcg/actuation aerosol inhaler 1 puff inhalation Q6H PRN SOB 05/31/21 hydralazine 50 mg tablet 50 mg PO BID diuretic 05/31/21 apixaban 5 mg tablet (Eliquis) 2.5 mg (1/2 x 5 mg) PO BID #60 tabs 07/20/23 amlodipine 10 mg tablet 10 mg PO DAILY Check with primary doctor #90 tabs 08/21/23 ipratropium 0.5 mg-albuterol 3 mg (2.5 mg base)/3 mL nebulization soln 3 ml inhalation Q4H PRN shortness of breath or wheezing #180 mL 09/07/23 omeprazole 20 mg capsule,delayed release 20 mg PO QDAY 06/09/24 acetaminophen 500 mg tablet 500 mg PO Q6H PRN fever or pain 08/05/24 lidocaine-prilocaine 2.5 %-2.5 % topical cream 1 applic topical ONCE PRN Port access 30 days #30 grams 09/07/24 pembrolizumab 25 mg/mL intravenous solution (Keytruda) 200 mg IV .COMPLEX 12/14/24 prednisone 20 mg tablet 40 mg (2 x 20 mg) PO DAILY #10 tabs 12/16/24 sodium bicarbonate 650 mg tablet 650 mg PO BID #14 tabs 12/16/24 Hospital Course Operations None Procedures None Summary of Care Provided Minutes Spent on Discharge: 45 Hospital Course: Patient is a 69-year-old male with past medical history as outlined including metastatic renal cell carcinoma with mets to the lung s/p left nephrectomy and lobectomy was admitted to the ED on 12/14/2024 with a complaint of nausea without vomiting, rhinorrhea and congestion as well as cough and shortness of breath, fever and chills which have been going on for about 10 days prior to admission. He was evaluated in the [facility] and had been started on antibiotics. He had completed the whole course of antibiotics but symptoms persisted so he followed up with his PCP who placed him on Levaquin. He had taken 4 doses of the Levaquin but his symptoms persisted he had increasing fatigue and malaise so he came into the ED. Vitals in the ED showed that he was saturating at 86% on room air on admission and so was placed on 2 L of oxygen. WBC was 5.3. BMP showed sodium of 130 with potassium of 3.1. Creatinine was 1. Chest x-ray showed bibasilar infiltrate versus atelectasis. EKG showed no acute ST changes. COVID, influenza and RSV PCR were negative. Was admitted and managed for hypoxia due to acute on chronic COPD exacerbation in the setting of recent viral illness. He was placed on IV Solu-Medrol and breathing treatments bronchodilators. RSV panel was negative. Sputum cultures were also negative. Shortness of breath improved and he was weaned off of oxygen onto room air. He felt much better and had walking pulse ox on 12/16/2024 which showed that he did not require any oxygen at home. He was discharged home on 12/16/2024. He is follow-up with his primary care doctor within 1 to 2 weeks. He was discharged with a prescription for p.o. prednisone 40 mg daily for 5 days. Of note patient had mild non-anion gap metabolic acidosis during admission with bicarb went as low as 15. He was therefore started on p.o. sodium bicarbonate 650 mg twice daily. His bicarb did go up to 19. He was therefore discharged on p.o. sodium bicarbonate 650 mg twice daily just for 7 days and to have follow-up BMP with his PCP to monitor his bicarb levels. I am not sure why his bicarb dropped like that as he did not have any diarrhea during admission and his kidney function also remained normal. Patient seen and examined prior to discharge. He had no complaints. He had an uneventful night. Review of systems otherwise negative. Labs and vitals reviewed. Home medication reviewed and reconciled. Physical Exam Const alert, oriented x3 and no apparent distress General Appearance: cooperative, comfortable, well kempt and well developed Orientation / Consciousness: awake Exam Limitations: no limitations HEENT normocephalic, head/scalp atraumatic, hearing grossly normal bilaterally, moist oral mucous membranes and oropharynx normal Mouth: oral and palatal mucosa normal Eyes PERRL, EOMs intact bilaterally and conjunctivae normal Neck no lymphadenopathy and supple Lymph Lymphatic: no lymphadenopathy noted and no lymphedema noted Resp Resp Narrative: mildly diminished breath sounds bibasally, no wheezes or crackles. On room air. Cardio regular rate, regular rhythm, S1 normal heart sound, S2 normal heart sound and no murmurs GI normal to inspection, nondistended, normoactive bowel sounds, soft to palpation and non-tender Extremity normal to inspection, full ROM, normal capillary refill, no clubbing, cyanosis or edema and no calf tenderness General Extremity: no tenderness to palpation of joints or extremities Skin no rashes or lesions noted General Skin Exam: no breakdown Neuro oriented x3, CN's II-XII intact bilaterally, moves all extremities, no focal motor deficits and no sensory deficits noted Sensorium / Orientation: awake and alert Motor Exam: strength 5/5 throughout and general weakness Psych thought process normal, cooperative and affect normal Appearance: appropriate Weight / BMI Weight Weight: 204 lb 12.951 oz Body Mass Index (BMI) 34.0 ABG / Lab / Microbiology Data 12/16/24 06:29 12/16/24 06:29 Laboratory: Laboratory Results - last 24 hr 12/15/24 16:31: POC Glucose 269 H 12/15/24 20:49: POC Glucose 254 H 12/16/24 04:40: POC Glucose 209 H 12/16/24 06:29: WBC 6.3, RBC 4.77, Hgb 10.9 L, Hct 34.6 L, MCV 72.5 L, MCH 22.9 L, MCHC 31.5 L, RDW Std Deviation 50.5 H, RDW Coeff of Kailey 19.4 H, Plt Count 203, MPV 9.3, Immature Gran % (Auto) 2.400 H, Neut % (Auto) 86.8 H, Lymph % (Auto) 5.6 L, Wetzel % (Auto) 5.0, Eos % (Auto) 0.0, Baso % (Auto) 0.2, Absolute Neuts (auto) 5.4, Absolute Lymphs (auto) 0.35 L, Nucleated RBC % 0, Sodium 137, Potassium 4.0, Chloride 110 H, Carbon Dioxide 19.0 L, Anion Gap 7, BUN 20 H, Creatinine 1.11, Estim Creat Clear Calc 63.94, Est GFR (MDRD) Af Amer 84, Est GFR (MDRD) Non-Af 69, BUN/Creatinine Ratio 18.0, Glucose 224 H, Calcium 9.0 12/16/24 11:03: POC Glucose 251 H Microbiology: Microbiology 12/14/24 07:00 Sputum, Expectorated/Coughed Gram Stain - Final 12/14/24 22:53 Mucosa - Nasopharyngeal Respiratory Panel (PCR) - Final 12/14/24 23:41 Urine, Clean Catch Legionella Antigen - Final 12/14/24 23:41 Urine, Clean Catch Streptococcus pneumoniae Antigen (M - Final 12/14/24 18:23 Mucosa - Nose SARS-CoV-2, Influenza & RSV (PCR) - Final D/C Instructions Discharge Diet: Low fat / Low cholesterol Discharge Activity: Return to Normal Activity Weight Bearing Status: Weight bearing as tolerated Call your doctor if you observe: Fever of 101 or Higher, Shortness of breath, Dizziness, Chest pain and Increased palpitations (irregular heartbeat) DC O2, CPAP, BIPAP Needs RN Home O2 Qualification: Home O2 Qualification: Is the patient on home oxygen No 12/16/24 14:05 Home O2 Qualification: AT REST 1- Pulse Ox at rest 96 12/16/24 14:05 Home O2 Qualification: WITH AMBULATION 1- Pulse Ox with ambulation 93 12/16/24 14:05 1- Oxygen Flow Rate with 0 12/16/24 14:05 ambulation Home O2 Discharge instructions: No DC home with Oxygen: No Meaningful Use Info Meaningful Use Meaningful Use Diagnoses (Choose all that apply): None applicable Ischemic Stroke Statin Dosing Therapy Reference: STATIN DOSE THERAPY REFERENCE: * Patients > 75 years receive moderate or high dose statin therapy. * Patients 75 years or YOUNGER should receive HIGH intensity statin dose unless contraindicated. You will be required to document reason for non-treatment if statin daily dose does not meet guidelines. HIGH DOSE STATIN THERAPY DAILY Atorvastatin > than or = to 40 mg Rosuvastatin > than or = to 20 mg Amlodipine + Atorvastatin > than or = to 2.5/40 mg Ezetimibe + Simvastatin 10/80 mg Simvastatin 80mg Discharge Plan Admission Admit Date/Time: 12/14/24 21:13 Primary Reason for Your Visit: COPD exacerbation Attending Provider: Amber Cat Primary Care Provider: Jacob Jennings Consulting Providers: Sayra Fuentes Instructions Patient Instructions: COPD Meds Discharge Orders/Prescriptions Prescriptions: New sodium bicarbonate 650 mg Tablet 650 mg PO BID Qty: 14 0RF prednisone 20 mg tablet 40 mg PO DAILY Qty: 10 0RF Continued carvedilol 25 mg tablet 25 mg PO BID Rx Instructions: must administer with a meal/food albuterol sulfate 90 mcg/actuation HFA aerosol inhaler 1 puff inhalation Q6H PRN (Reason: SOB) amlodipine 10 mg tablet 10 mg PO DAILY Qty: 90 3RF omeprazole 20 mg capsule,delayed release(DR/EC) 20 mg PO QDAY acetaminophen 500 mg tablet 500 mg PO Q6H PRN (Reason: fever or pain) lidocaine-prilocaine 2.5-2.5 % cream 1 applic topical ONCE PRN (Reason: Port access ) 30 Days Qty: 30 2RF rosuvastatin [Crestor] 40 MG tablet 40 mg PO DAILY Keytruda 25 mg/mL solution 200 mg IV .COMPLEX Rx Instructions: 200 mg intravenously; every 3 weeks, last dose 11/30/24 hydralazine 50 mg tablet 50 mg PO BID Eliquis 5 mg tablet 2.5 mg PO BID Qty: 60 12RF ipratropium-albuterol 0.5 mg-3 mg(2.5 mg base)/3 mL solution for nebulization 3 ml inhalation Q4H PRN (Reason: shortness of breath or wheezing) Qty: 180 3RF Referrals / Follow Up: Jacob Jennings DO [Primary Care Provider] - Within 1 Week Disposition Disposition (needs filled in before D/C Order can be placed): Home, Self Care Charges/Coding Visit Charges Inpatient E&M: 32315 Disch Hosp >30min
== END 2024-12-16 15:44 | disposition home or self-care (01) | DRG 191 ==
LOC: ED 21:16 → MS2 21:28
PROVIDERS: Admitting Provider Family Medicine; Emergency Provider Emergency Medicine; PCP Family Medicine; Referring Provider Emergency Medicine; Visit Provider Student in an Organized Health Care Education/Training Program
DX: J44.1 Chronic obstructive pulmonary disease with (acute) exacerbation (principal); E87.1 Hypo-osmolality and hyponatremia; C78.02 Secondary malignant neoplasm of left lung; C79.31 Secondary malignant neoplasm of brain; E87.21 Acute metabolic acidosis; J98.11 Atelectasis; C64.2 Malignant neoplasm of left kidney, except renal pelvis; D63.1 Anemia in chronic kidney disease; Z66 Do not resuscitate; I12.9 Hypertensive chronic kidney disease with stage 1 through stage 4 chronic kidney disease, or unspecified chronic kidney disease; E66.9 Obesity, unspecified; N18.2 Chronic kidney disease, stage 2 (mild); I25.10 Atherosclerotic heart disease of native coronary artery without angina pectoris; E87.6 Hypokalemia; K21.9 Gastro-esophageal reflux disease without esophagitis; E78.5 Hyperlipidemia, unspecified; R09.02 Hypoxemia; Z68.35 Body mass index [BMI] 35.0-35.9, adult; Z90.2 Acquired absence of lung [part of]; Z90.5 Acquired absence of kidney; Z95.5 Presence of coronary angioplasty implant and graft; Z79.01 Long term (current) use of anticoagulants; Z79.620 Long term (current) use of immunosuppressive biologic; Z79.899 Other long term (current) drug therapy; Z86.16 Personal history of COVID-19; Z86.711 Personal history of pulmonary embolism; Z86.718 Personal history of other venous thrombosis and embolism; Z87.891 Personal history of nicotine dependence
CPT/HCPCS: 36415; 36591; 71045; 80048; 80053; 82962; 83735; 84145; 84484; 85025; 87070; 87205; 87449; 87631; 87633; 93005; 94640; 94668; 94760; 97802; 99283; A4216

== ENCOUNTER 2025-01-07 02:16 | Emergency (ER) | payer MEDICARE, OTHER, SELFPAY ==
[2025-01-07] VITALS (8 sets, daily range): BP systolic 80–116; BP diastolic 51–65; PULSE 89–101; RESP 18; TEMP 36.9–37.7; O2SAT 86–94; BMI 31.8
--- NOTE | 2025-01-07 02:49 | ED.VIS.GI ---
HPI HPI - GI History of Present Illness Chief Complaint: Diarrhea Informant: patient and spouse/S.O. Narrative Narrative: 69-year-old male brought in 2:30 AM because of diarrhea that he has had all day this past day, started turning bloody late at night. They brought in a diaper displaying this, it basically looks like red-discolored diarrhea with a relatively small amount of blood. They state there were maybe 3 episodes like this prior to coming here. He feels dehydrated because of the diarrhea. His appetite is been very poor for the past month or so, he has kidney cancer and gets Keytruda infusions. He denies having any abdominal pain, fevers, chills, no contact with ill people with similar symptoms that he knows of as there has been a lot of norovirus in the community recently. He has not been feeling lightheaded or syncopal/near syncopal. Later, he and significant other state that he was found to be anemic recently so he saw GI and ended up having a capsule study that showed 2 bleeders. He is on Eliquis, and states they have not taken him off of this despite all of the above. [facility] Medical History COPD exacerbation History of steroid therapy Low iron Seizures Shortness of breath on exertion History of pain when walking History of edema History of echocardiogram Cardiology follow-up encounter Cervical spinal cord injury Cervical stenosis of spine Numbness in right leg RUE numbness Diarrhea Hypokalemia Duodenal ulcer Anemia Diabetes mellitus, type 2 Hyperglycemia Hyponatremia Thrombocytopenia Pulmonary emboli COPD (chronic obstructive pulmonary disease) Imbalance Brain metastasis Pneumonia Sinus congestion Hx of radiation therapy Brain metastasis Frequent headaches Epistaxis Contact with or suspected exposure to other viral communicable disease Iron deficiency anemia due to chronic blood loss Encounter for immunotherapy Encounter for immunotherapy COVID-19 Nonrheumatic aortic (valve) stenosis with insufficiency Elevated troponin (05/15/21) Encephalopathy (05/15/21) Seizure (05/15/21) Metastatic renal cell carcinoma to lung Dyspnea Metastasis to adrenal gland Port-A-Cath in place Atherosclerotic heart disease of [place] coronary artery without angina pectoris Hyperlipidemia Wears glasses Wears dentures Gastric reflux Former smoker History of primary malignant neoplasm of left kidney 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 Skin cancer Abnormal colonoscopy Essential (primary) hypertension COPD (chronic obstructive pulmonary disease) Adenocarcinoma of right lung Home Medications ?Medication ?Instructions ?Recorded ?Last Taken ?Type rosuvastatin 40 mg tablet (Crestor) 40 mg PO QHS CHOLESTEROL 08/18/18 12/13/24 History carvedilol 25 mg tablet 25 mg PO BID blood pressure 04/30/21 12/14/24 10:00 History albuterol sulfate 90 mcg/actuation 1 puff inhalation Q6H PRN SOB 05/31/21 06/12/21 History aerosol inhaler hydralazine 50 mg tablet 50 mg PO BID diuretic 05/31/21 12/14/24 10:00 History apixaban 5 mg tablet (Eliquis) 2.5 mg (1/2 x 5 mg) PO BID #60 tabs 07/20/23 12/14/24 10:00 Rx Held on 01/07/25. Instructions: See instructions on page 1 amlodipine 10 mg tablet 10 mg PO DAILY Check with primary 08/21/23 12/14/24 10:00 Rx doctor #90 tabs ipratropium 0.5 mg-albuterol 3 mg 3 ml inhalation Q4H PRN shortness 09/07/23 Unknown Rx (2.5 mg base)/3 mL nebulization of breath or wheezing #180 mL soln omeprazole 20 mg capsule,delayed 20 mg PO QDAY 06/09/24 12/14/24 History release acetaminophen 500 mg tablet 500 mg PO Q6H PRN fever or pain 08/05/24 Unknown History lidocaine-prilocaine 2.5 %-2.5 % 1 applic topical ONCE PRN Port 09/07/24 Unknown Rx topical cream access 30 days #30 grams pembrolizumab 25 mg/mL intravenous 200 mg IV .COMPLEX 12/14/24 11/30/24 History solution (Keytruda) ondansetron 8 mg disintegrating 8 mg PO Q8H PRN nausea and 01/07/25 Unknown Rx tablet vomiting #12 tabs Allergy/AdvReac Type Severity Reaction Status Date / Time No Known Allergies Allergy Verified 01/07/25 02:18 Family History Sister Diabetes CAD (coronary artery disease) Mother CVA (cerebral vascular accident) CAD (coronary artery disease) Lung cancer Father CAD (coronary artery disease) Brother CAD (coronary artery disease) Surgical History H/O cervical discectomy History of cataract surgery History of lobectomy of lung History of nephrectomy, left History of coronary angioplasty (01/05/04) History of coronary artery stent placement (07/17/03) Social History household members: spouse Smoking Status: Former smoker Tobacco: How many years used: 40 second hand exposure: No alcohol intake: current alcohol intake frequency: a few times a month Alcohol type: beer substance use type: does not use seatbelt use: always do you feel safe at home: Yes ROS ROS ED Constitutional Constitutional ED: Reports anorexia; Denies chills or fever(s) Eyes Eyes: Denies change in vision or diplopia ENT ENT ED: Denies rhinorrhea or sore throat Cardiovascular Cardiovascular: Denies chest pain, orthostatic symptoms, palpitations or syncope Respiratory/Chest Respiratory/Chest: Denies cough or dyspnea Gastrointestinal Gastrointestinal: Reports diarrhea, hematochezia, nausea and other Details: Some dry heaving ; Denies abdominal pain, melena or vomiting Genitourinary Genitourinary ED: Denies dysuria or hematuria Musculoskeletal Musculoskeletal: Denies back pain or neck pain Integumentary Denies abscess or rash Neurologic Neurologic: Denies headache(s), paresthesias or weakness Psychiatric Psychiatric: Denies anxiety or suicidal thoughts EXAM Physical Exam Const Vital Signs: 01/07/25 02:22 01/07/25 02:24 01/07/25 03:00 Temperature 98.5 F 98.5 F 98.5 F Temperature Source Oral Oral Oral Pulse Rate 89 92 99 Pulse Rate [Lying] Pulse Rate [Sitting (for 1 minute prior to obtaining)] Pulse Rate [Standing (for 1 minute prior to obtaining)] Respiratory Rate 18 18 18 Blood Pressure 116/58 L 116/58 L 104/51 L Blood Pressure [Lying] Blood Pressure [Sitting (for 1 minute prior to obtaining)] Blood Pressure [Standing (for 1 minute prior to obtaining)] Blood Pressure Mean 77 77 68 Blood Pressure Mean [Lying] Blood Pressure Mean [Sitting (for 1 minute prior to obtaining)] Blood Pressure Mean [Standing (for 1 minute prior to obtaining)] Pulse Ox 93 93 93 Oxygen Delivery Method Room Air Room Air Room Air Oxygen Flow Rate (L/min) 01/07/25 03:30 01/07/25 04:00 01/07/25 04:17 Temperature 99.0 F Temperature Source Oral Pulse Rate 93 Pulse Rate [Lying] 92 Pulse Rate [Sitting (for 1 minute prior to obtaining)] 97 Pulse Rate [Standing (for 1 minute prior to obtaining)] 101 H Respiratory Rate 18 Blood Pressure 104/59 L Blood Pressure [Lying] 99/65 Blood Pressure [Sitting (for 1 minute prior to obtaining)] 80/62 L Blood Pressure [Standing (for 1 minute prior to obtaining)] 88/51 L Blood Pressure Mean 74 Blood Pressure Mean [Lying] 76 Blood Pressure Mean [Sitting (for 1 minute prior to obtaining)] 68 Blood Pressure Mean [Standing (for 1 minute prior to obtaining)] 63 Pulse Ox 93 86 Oxygen Delivery Method Room Air Room Air Oxygen Flow Rate (L/min) 01/07/25 04:30 01/07/25 05:00 Temperature 99.8 F H Temperature Source Oral Pulse Rate 89 Pulse Rate [Lying] Pulse Rate [Sitting (for 1 minute prior to obtaining)] Pulse Rate [Standing (for 1 minute prior to obtaining)] Respiratory Rate 18 Blood Pressure 115/64 Blood Pressure [Lying] Blood Pressure [Sitting (for 1 minute prior to obtaining)] Blood Pressure [Standing (for 1 minute prior to obtaining)] Blood Pressure Mean 81 Blood Pressure Mean [Lying] Blood Pressure Mean [Sitting (for 1 minute prior to obtaining)] Blood Pressure Mean [Standing (for 1 minute prior to obtaining)] Pulse Ox 94 93 Oxygen Delivery Method Nasal Cannula Nasal Cannula Oxygen Flow Rate (L/min) 2 2 Positive well nourished and well developed General Appearance ED: well developed and NAD HEENT Reports moist mucous membranes normocephalic and atraumatic Eyes PERRL and EOMs intact bilaterally Neck full ROM and supple Resp normal respiratory effort and clear to auscultation bilaterally Cardio regular rate, regular rhythm and peripheral pulses 2+ throughout Rate: Negative for tachycardic Heart Sounds: murmur systolic II/ crescendo-decrescendo left sternal border GI non-tender and non-distended GI Narrative: On rectal, he has some role-appearing skin in the perianal region but no wounds, tenderness, abscess, or focal lesions including hemorrhoids. On [place] there is no tenderness or active bleeding. There is no old blood present either. Auscultation: hyperactive bowel sounds Palpation: soft Back/Spine no CVA tenderness General Back: other FROM Extremity normal to inspection General Extremety ED: Negative for edema, pulses abnormal or tenderness General Extremity: Negative for edema or pulses abnormal Neuro oriented x3, CN's II-XII intact bilaterally and no sensory deficits noted Sensorium / Orientation: awake and alert Motor Exam: strength 5/5 throughout Psych mental status grossly normal and thought process normal Skin no rashes or lesions noted and no wounds MDM MDM MDM Narrative Medical decision making narrative: I reviewed patient's outpatient GI visit from 11/17, and then he had a camera capsule study done on 11/29 that is interpreted as 2 small bowel angiodysplastic lesions and he has not had a follow-up since then. At the outpatient visit, it is apparent that he developed pulmonary emboli and was anticoagulated, and after they started the anticoagulation, he started to become more anemic even despite getting IV iron infusions which is why he was referred back to GI. He had duodenal ulcers in the past, but a normal colonoscopy, the latter according to the patient. When I asked him if he had diverticulosis on his colonoscopy he said no, to his knowledge. He is not having any pain right now to suggest acute diverticulitis. The acute diarrhea he is having could be from a number of causes; he is getting chemotherapy, there is a lot of norovirus in the area, it could be a different infection, which could be viral or bacterial. He does not have any historical factors to suggest an obvious reason for him to have a bacterial enteritis; he has not traveled out of the region or the country recently, he has had no suspicious food intake or raw seafood, he is immunocompromise but has not been around anybody that he knows of that has been ill with this recently. He eats very little due to his cancer and treatments, so food borne illness is less likely here. Labs show a low bicarb but otherwise unremarkable. Liver enzymes noted and unremarkable except for hypoproteinemia/hypoalbuminemia. This makes sense since he is probably malnourished subacutely due to poor appetite and poor p.o. intake with regards to having cancer. Hemoglobin is good at 12.6, higher than his last measurement 2-3 weeks ago. He was able to have diarrhea here, I sent her for an enteric bacterial panel but that will not be done this shift or while the patient is here if he is discharged. His fecal white blood cell smear is positive, suggesting infection causing his diarrhea. He is having no abdominal pain or tenderness so I do not think advanced imaging with CT is indicated at this time. He is on Eliquis, but given the small amounts of bleeding he has been having after having diarrhea all day having the bleeding start, I think it is related to the diarrhea and in context of the positive fecal white blood cell smear, this is supported, as opposed to being related to his 2 angiodysplastic areas seen in the small bowel, which I would expect to show significant clinical GI bleeding when anticoagulated. I see nothing that requires an admission. His orthostatics were negative, his blood pressures were soft however, but these resolved with the first one third of the liter of saline we gave him and remained stable thereafter. Regardless, I offered admission, but he declines and prefers to go home. is comfortable with that. She wants something to stop the diarrhea, as they have already tried Imodium and it did not seem to help. At this time I do not recommend antibiotics; his white blood count is 4.8, and this is more likely to be viral until proven otherwise, and we have an enteric bacterial panel in the lab being run tomorrow or later today. I do not recommend empiric antibiotics before knowing the results of that. For now I recommend continued hydration, and discontinuing the Eliquis until the bleeding resolves, and then maybe give it a day or 2 before restarting. We discussed reasons to return. History & Record Review Additional record(s) reviewed:: Prior outpatient record Lab Data Attestation: I reviewed the patient's lab results. Labs: Laboratory Results - last 24 hr 01/07/25 03:04 WBC 4.8 RBC 5.43 Hgb 12.6 L Hct 39.1 L MCV 72.0 L MCH 23.2 L MCHC 32.2 RDW Std Deviation 49.5 H RDW Coeff of Kailey 19.6 H Plt Count 262 MPV 9.0 Immature Gran % (Auto) 1.500 H Neut % (Auto) 56.2 Lymph % (Auto) 17.0 L Humphreys % (Auto) 16.0 H Eos % (Auto) 8.3 H Baso % (Auto) 1.0 Absolute Neuts (auto) 2.7 Absolute Lymphs (auto) 0.82 L Nucleated RBC % 0 Sodium 131 L Potassium 3.6 Chloride Direct 98 Carbon Dioxide 18.2 L Anion Gap 15 BUN 12 Creatinine 1.14 Estim Creat Clear Calc 60.21 Est GFR (MDRD) Non-Af 69 BUN/Creatinine Ratio 10.2 Glucose 96 Calcium 8.9 Total Bilirubin 0.43 AST 18 ALT 10 Alkaline Phosphatase 54 Total Protein 5.3 L Albumin 3.0 L Globulin 2.2 Albumin/Globulin Ratio 1.4 Discharge Plan Triage Chief Complaint: Diarrhea ED Provider: Indio Simon Dx/Rx/DC Orders Clinical Impression: Acute infective gastroenteritis, Hematochezia, Mild dehydration Instructions: ED Diarrhea, Unknown Cause Prescriptions: New ondansetron 8 mg tablet,disintegrating 8 mg PO Q8H PRN (Reason: nausea and vomiting) Qty: 12 0RF Continued carvedilol 25 mg tablet 25 mg PO BID Rx Instructions: must administer with a meal/food albuterol sulfate 90 mcg/actuation HFA aerosol inhaler 1 puff inhalation Q6H PRN (Reason: SOB) amlodipine 10 mg tablet 10 mg PO DAILY Qty: 90 3RF omeprazole 20 mg capsule,delayed release(DR/EC) 20 mg PO QDAY acetaminophen 500 mg tablet 500 mg PO Q6H PRN (Reason: fever or pain) lidocaine-prilocaine 2.5-2.5 % cream 1 applic topical ONCE PRN (Reason: Port access ) 30 Days Qty: 30 2RF rosuvastatin [Crestor] 40 MG tablet 40 mg PO QHS Keytruda 25 mg/mL solution 200 mg IV .COMPLEX Rx Instructions: 200 mg intravenously; every 3 weeks, last dose 12/21/24 hydralazine 50 mg tablet 50 mg PO BID ipratropium-albuterol 0.5 mg-3 mg(2.5 mg base)/3 mL solution for nebulization 3 ml inhalation Q4H PRN (Reason: shortness of breath or wheezing) Qty: 180 3RF Held Eliquis 5 mg tablet 2.5 mg PO BID Qty: 60 12RF Hold Instructions: See instructions on page 1 Primary Care Provider: Jacob Jennings Referrals: Jacob Jennings DO [Primary Care Provider] - As soon as possible Activity Restrictions/Additional Instructions: Stop taking your Eliquis for now. If your bleeding and diarrhea resolve within 2 days, the next day you may resume Eliquis. If your bleeding resolves but you are still having diarrhea, stay off of Eliquis for an additional 2 or 3 days, you may enlist the help of your PCP if you are able to be reevaluated by that time. You are always welcome to be reevaluated in the ER if you are feeling worse, having trouble hydrating yourself, or to the bleeding is worsening despite being off of your Eliquis. Be aware that after starting to skip Eliquis dosing, it can sometimes take 3 or 4 days to be completely out of your system. Drink plenty of fluids. You may eat soft foods such as bananas, rice, applesauce, toast, Jell-O, and/or supplement shakes such as Ensure or boost as tolerated. Print Language: Ni[place]an Disposition Disposition: Home, Self Care
[2025-01-07 03:13] LABS: Absolute Lymphocyte Count 0.82 X10^3/uL (0.83-4.51); Absolute Neutrophil Count 2.7 X10^3/uL (2.0-7.7); Basophil# 0.05 X10^3/uL; Eosinophils% 8.3 % (0-5); Hematocrit 39.1 % (40-54); Hemoglobin 12.6 g/dL (13.0-16.5); Lymphocyte # 0.82 X10^3/ul (0.83-4.51); Mean Corp Hgb Conc 32.2 g/dL (32-36); Mean Corpuscular Hgb 23.2 pg (27.0-32.0); Monocyte# 0.77 X10^3/uL; NRBC Flagged by Analyzer 0 % (0-5); Neutrophil % 56.2 % (47-70); Platelet Count 262 K/mm3 (150-450); RBC Distribution Width CV 19.6 % (11.6-14.6); RBC Distribution Width SD 49.5 fl (35.1-43.9); Red Blood Count 5.43 M/mm3 (4.6-6.2); White Blood Count 4.8 K/mm3 (4.4-11.0)
[2025-01-07] MEDS: 0.9% Normal Saline (1000mL) 1,000 ML 999 ML IV (04:17)
[2025-01-07 04:20] LABS: ALB/GLOB Ratio 1.4 RATIO (0.9-2.4); AST(SGOT) 18 U/L (<=37); Alanine Aminotransfer ALT/SGPT 10 U/L (<=46); Alkaline Phosphatase 54 U/L (40-129); Anion Gap 15 (5-15); BUN 12 mg/dL (4-19); BUN/Creat Ratio 10.2 RATIO (10-20); Calcium 8.9 mg/dL (7.6-11.0); Carbon Dioxide 18.2 mmol/L (22.0-29.0); Chloride 98 mmol/L (96-108); Creatinine, Serum 1.14 mg/dL (0.70-1.20); EST Glomerular Filtration Rate 69 (>60); Estimated Creatinine Clearance 60.21 ml/min; Globulin 2.2 g/dL (2.2-4.2); Glucose 96 mg/dL (70-99); Potassium 3.6 mmol/L (3.3-5.1); Protein, Total 5.3 g/dL (5.9-8.4); Sodium Level 131 mmol/L (133-145); Total Bilirubin 0.43 mg/dL (0.00-1.30)
== END 2025-01-07 06:00 | disposition home or self-care (01) ==
PROVIDERS: Emergency Provider Emergency Medicine; PCP Family Medicine; Visit Provider Emergency Medicine
DX: A09 Infectious gastroenteritis and colitis, unspecified (principal); J44.9 Chronic obstructive pulmonary disease, unspecified; E86.0 Dehydration; I10 Essential (primary) hypertension; I25.10 Atherosclerotic heart disease of native coronary artery without angina pectoris; E78.5 Hyperlipidemia, unspecified; Z95.5 Presence of coronary angioplasty implant and graft; Z79.01 Long term (current) use of anticoagulants; Z79.899 Other long term (current) drug therapy; Z86.16 Personal history of COVID-19; Z87.891 Personal history of nicotine dependence
CPT/HCPCS: 96360; 99285; 36591; 80053; 83630; 85025; 87506; A4216

== ENCOUNTER 2025-01-10 09:58 | Inpatient (IN) | payer MEDICARE, OTHER, SELFPAY ==
[2025-01-10] VITALS (12 sets, daily range): BP systolic 97–135; BP diastolic 50–84; PULSE 99–115; RESP 18–33; TEMP 36.8–39.4; O2SAT 83–97; BMI 33.2; BMI 32.3
--- NOTE | 2025-01-10 10:10 | EKG12_ITS ---
Test Reason : fall Blood Pressure : */* mmHG Vent. Rate : 114 BPM Atrial Rate : 114 BPM P-R Int : 154 ms QRS Dur : 72 ms QT Int : 316 ms P-R-T Axes : 48 4 77 degrees QTcB Int : 435 ms Sinus tachycardia Nonspecific ST and T wave abnormality Abnormal ECG When compared with ECG of 14-Dec-2024 18:22, No significant change was found Confirmed by Marcial Bray ([id number]), news editor MATHEW VORA ([id number]) on 01/11/2025 5:57:12 AM Referred By: Lacie/Aurora Confirmed By: Marcial Bray
[2025-01-10] MEDS: 0.9% Normal Saline (1000mL) 1,000 ML 999 ML IV (11:24)
--- NOTE | 2025-01-10 11:26 | EX.ED.DYSGE1 ---
HPI History of Present Illness Chief Complaint: Fall Informant: patient and spouse/S.O. Narrative Narrative: 69-year-old male who was seen here about 4 days ago for vomiting and diarrhea and some blood in his stool. We discharged him home, he states that the blood has resolved and he has had no more of that, however the diarrhea has been profuse between 10-15 times per day, very watery, also vomiting, still no abdominal pain. Did develop a fever of 103. He has not yet been able to follow-up with his doctor. This morning, he was a little disoriented after the heard a thud and he apparently had a fall and then climbed back into bed, very weak trouble getting up and out of bed, the patient states he thinks he hit his head but he is not sure. Denies a headache. [facility] Medical History COPD exacerbation History of steroid therapy Low iron Seizures Shortness of breath on exertion History of pain when walking History of edema History of echocardiogram Cardiology follow-up encounter Cervical spinal cord injury Cervical stenosis of spine Numbness in right leg RUE numbness Diarrhea Hypokalemia Duodenal ulcer Anemia Diabetes mellitus, type 2 Hyperglycemia Hyponatremia Thrombocytopenia Pulmonary emboli COPD (chronic obstructive pulmonary disease) Imbalance Brain metastasis Pneumonia Sinus congestion Hx of radiation therapy Brain metastasis Frequent headaches Epistaxis Contact with or suspected exposure to other viral communicable disease Iron deficiency anemia due to chronic blood loss Encounter for immunotherapy Encounter for immunotherapy COVID-19 Nonrheumatic aortic (valve) stenosis with insufficiency Elevated troponin (05/15/21) Encephalopathy (05/15/21) Seizure (05/15/21) Metastatic renal cell carcinoma to lung Dyspnea Metastasis to adrenal gland Port-A-Cath in place Atherosclerotic heart disease of [place] coronary artery without angina pectoris Hyperlipidemia Wears glasses Wears dentures Gastric reflux Former smoker History of primary malignant neoplasm of left kidney 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 Skin cancer Abnormal colonoscopy Essential (primary) hypertension COPD (chronic obstructive pulmonary disease) Adenocarcinoma of right lung Home Medications ?Medication ?Instructions ?Recorded ?Last Taken ?Type rosuvastatin 40 mg tablet (Crestor) 40 mg PO QHS CHOLESTEROL 08/18/18 12/13/24 History carvedilol 25 mg tablet 25 mg PO BID blood pressure 04/30/21 12/14/24 10:00 History albuterol sulfate 90 mcg/actuation 1 puff inhalation Q6H PRN SOB 05/31/21 06/12/21 History aerosol inhaler hydralazine 50 mg tablet 50 mg PO BID diuretic 05/31/21 12/14/24 10:00 History apixaban 5 mg tablet (Eliquis) 2.5 mg (1/2 x 5 mg) PO BID #60 tabs 07/20/23 12/14/24 10:00 Rx Held on 01/07/25. Instructions: See instructions on page 1 amlodipine 10 mg tablet 10 mg PO DAILY Check with primary 08/21/23 12/14/24 10:00 Rx doctor #90 tabs ipratropium 0.5 mg-albuterol 3 mg 3 ml inhalation Q4H PRN shortness 09/07/23 Unknown Rx (2.5 mg base)/3 mL nebulization of breath or wheezing #180 mL soln omeprazole 20 mg capsule,delayed 20 mg PO QDAY 06/09/24 12/14/24 History release acetaminophen 500 mg tablet 500 mg PO Q6H PRN fever or pain 08/05/24 Unknown History lidocaine-prilocaine 2.5 %-2.5 % 1 applic topical ONCE PRN Port 09/07/24 Unknown Rx topical cream access 30 days #30 grams pembrolizumab 25 mg/mL intravenous 200 mg IV .COMPLEX 12/14/24 11/30/24 History solution (Keytruda) ondansetron 8 mg disintegrating 8 mg PO Q8H PRN nausea and 01/07/25 Unknown Rx tablet vomiting #12 tabs Allergy/AdvReac Type Severity Reaction Status Date / Time No Known Allergies Allergy Verified 01/07/25 02:18 Family History Sister Diabetes CAD (coronary artery disease) Mother CVA (cerebral vascular accident) CAD (coronary artery disease) Lung cancer Father CAD (coronary artery disease) Brother CAD (coronary artery disease) Surgical History H/O cervical discectomy History of cataract surgery History of lobectomy of lung History of nephrectomy, left History of coronary angioplasty (01/05/04) History of coronary artery stent placement (07/17/03) Social History household members: spouse Smoking Status: Former smoker Tobacco: How many years used: 40 second hand exposure: No alcohol intake: current alcohol intake frequency: a few times a month Alcohol type: beer substance use type: does not use seatbelt use: always do you feel safe at home: Yes ROS ROS ED Constitutional Constitutional ED: Reports chills, fatigue, fever(s) and malaise Eyes Eyes: Denies change in vision or diplopia ENT ENT ED: Denies rhinorrhea or sore throat Cardiovascular Cardiovascular: Denies chest pain or palpitations Respiratory/Chest Respiratory/Chest: Reports other Details: Occasional hiccups possibly ; Denies cough or dyspnea Gastrointestinal Gastrointestinal: Reports diarrhea, nausea and vomiting; Denies abdominal pain or melena Genitourinary Genitourinary ED: Denies dysuria or hematuria Musculoskeletal Musculoskeletal: Denies back pain or neck pain Integumentary Denies abscess or rash Neurologic Neurologic: Reports confusion; Denies headache(s), paresthesias or weakness Psychiatric Psychiatric: Denies anxiety or suicidal thoughts EXAM Physical Exam Const Vital Signs: 01/10/25 09:59 01/10/25 10:06 01/10/25 10:10 Temperature 103.0 F H 103.0 F H Temperature Source Axillary Axillary Pulse Rate 115 H 113 H Respiratory Rate 33 H 29 H Respiratory Effort Normal Non-Labored Respiratory Depth Normal Respiratory Pattern Tachypnea Blood Pressure 135/62 H 135/62 H Blood Pressure Mean 86 86 Pulse Ox 96 94 96 Oxygen Delivery Method Nasal Cannula Nasal Cannula Nasal Cannula Oxygen Flow Rate (L/min) 6 6 6 01/10/25 11:00 01/10/25 11:00 01/10/25 12:00 Temperature 103 F H 103 F H 103 F H Temperature Source Axillary Axillary Axillary Pulse Rate 113 H 113 H 108 H Respiratory Rate 26 H 26 H 26 H Respiratory Effort Respiratory Depth Respiratory Pattern Blood Pressure 122/55 H 122/55 H 97/50 L Blood Pressure Mean 77 77 65 Pulse Ox 97 96 Oxygen Delivery Method Nasal Cannula Nasal Cannula Oxygen Flow Rate (L/min) 6 6 01/10/25 12:12 01/10/25 12:12 01/10/25 13:00 Temperature 98.3 F Temperature Source Oral Pulse Rate 104 H Respiratory Rate 22 H Respiratory Effort Respiratory Depth Respiratory Pattern Blood Pressure 115/84 H Blood Pressure Mean 94 Pulse Ox 83 94 95 Oxygen Delivery Method Nasal Cannula High Flow High Flow Oxygen Flow Rate (L/min) 6 8 8 Positive well nourished and well developed General Appearance ED: well developed and NAD HEENT Reports moist mucous membranes normocephalic and atraumatic; Negative for tenderness Eyes PERRL and EOMs intact bilaterally Neck full ROM and supple Resp Resp Narrative: Mildly tachypneic no respiratory distress. Few high-pitched rhonchi at the bases but otherwise clear. Cardio regular rate, regular rhythm and no murmurs Rate: tachycardic GI non-tender and non-distended Auscultation: normoactive bowel sounds Palpation: soft Back/Spine no CVA tenderness General Back: other FROM Extremity normal to inspection General Extremety ED: Negative for edema, pulses abnormal or tenderness General Extremity: Negative for edema or pulses abnormal Neuro CN's II-XII intact bilaterally and no sensory deficits noted Sensorium / Orientation: awake, alert and orientation impaired Motor Exam: general weakness Psych mental status grossly normal Skin no rashes or lesions noted and no wounds MDM MDM MDM Narrative Medical decision making narrative: Saw this patient about 4 days ago, he refused to stay in the hospital at that time and wanted to treat at home and follow-up although he has not had a chance to. Now he is more ill. His bicarb is lower, signifying worsening dehydration/loss from diarrhea, I did review outpatient testing that we had performed enteric bacterial panel, it is negative. His fever and positive fecal white blood cell smear still suggest infectious etiology. He is not having any pain or tenderness in his abdomen to suggest that advanced imaging would be helpful here, but I did obtain a CT of his head since he fell and hit it in his old disoriented. Shows no hemorrhage, but encephalomalacia and vasogenic edema is noted, patient already has a history of known renal cell carcinoma metastasized to the lung and the brain according to his EMR. I confirmed this with he and significant other. He is following with oncology Dr. Cuevas, and getting Keytruda, his next scheduled infusion was tomorrow. Chest x-ray on my interpretation shows atelectasis versus infiltrate in the bases has radiology confirms, his white blood count of 4.9. Unclear if he truly has pneumonia or not although he did become hypoxic requiring Airvo. He is sleepy but easily arousable, he does not have a significant cough or sputum production and I think this is probably atelectasis due to him feeling very weak. He is amenable to staying in the hospital at this time. Additionally I think it is worth noting that although he has a history of pulmonary embolus, and that is in the differential for his hypoxemia, he has abnormal x-ray findings, and we just stopped his Eliquis 3-4 days ago without reversing it, without signs or symptoms of an active DVT. Therefore him suddenly throwing new clot is thought to be much less likely scenario especially since his vital signs are stable. History & Record Review Discussion w/independent historian: Patient and Family Lab Data Attestation: I reviewed the patient's lab results. Labs: Laboratory Results - last 24 hr 01/10/25 11:38 WBC 4.9 RBC 5.36 Hgb 12.3 L Hct 38.4 L MCV 71.6 L MCH 22.9 L MCHC 32.0 RDW Std Deviation 48.8 H RDW Coeff of Ka[place] 19.4 H Plt Count 201 MPV 8.8 Immature Gran % (Auto) 3.200 H Neut % (Auto) 54.3 Lymph % (Auto) 16.8 L [place] % (Auto) 21.9 H Eos % (Auto) 2.8 Baso % (Auto) 1.0 Absolute Neuts (auto) 2.7 Absolute Lymphs (auto) 0.83 Nucleated RBC % 0 Sodium 137 Potassium 3.6 Chloride 107 Carbon Dioxide 17.1 L Anion Gap 13 BUN 13 Creatinine 1.15 Estim Creat Clear Calc 60.95 Est GFR (MDRD) Non-Af 68 BUN/Creatinine Ratio 11.6 Glucose 91 Calcium 8.1 Total Bilirubin 0.43 AST 19 ALT 8 Alkaline Phosphatase 51 Total Protein 4.7 L Albumin 2.8 L Globulin 1.8 L Albumin/Globulin Ratio 1.5 Radiography Diagnostic Testing: Clinical Impression(s) from Imaging Studies Brain CT 01/10/25 11:50 IMPRESSION: Persistent vasogenic edema adjacent to the posterior horn of the left lateral ventricle as described. A repeat study with IV contrast recommended. Reading Location: [id number] Chest X-Ray 01/10/25 11:55 IMPRESSION: Bibasilar atelectasis or pneumonia. Reading Location: [facility] Rhythm Strip Rhythm Strip: Sinus Tach Rate: 114 Ectopy: None EKG Initial EKG: Attestation: I personally reviewed and interpreted this EKG as follows: Interpretation: No Acute Injury Pattern, Sinus Tachycardia and Non-Specific ST Changes Discharge Plan Dx/Rx/DC Orders Clinical Impression: Dehydration, Acute infective gastroenteritis, Metastatic renal cell carcinoma to lung, Brain metastasis, Declining functional status, Closed head injury, Hypoxemia Disposition Disposition: Acute Care [facility]
[2025-01-10] MEDS: Ondansetron 4 MG/2 ML Vial IV (11:37)
[2025-01-10 11:44] LABS: Absolute Lymphocyte Count 0.83 X10^3/uL (0.83-4.51); Absolute Neutrophil Count 2.7 X10^3/uL (2.0-7.7); Basophil# 0.05 X10^3/uL; Eosinophil# 0.14 X10^3/uL; Eosinophils% 2.8 % (0-5); Hematocrit 38.4 % (40-54); Hemoglobin 12.3 g/dL (13.0-16.5); Lymphocyte # 0.83 X10^3/ul (0.83-4.51); Lymphocyte % 16.8 % (19-41); Mean Corpuscular Hgb 22.9 pg (27.0-32.0); Mean Corpuscular Volume 71.6 fL (80-94); Mean Platelet Vol. 8.8 fl (6.2-12.0); Monocyte# 1.08 X10^3/uL; Monocyte% 21.9 % (0-10); NRBC Flagged by Analyzer 0 % (0-5); Neutrophil # 2.68 X10^3/uL (2.7-7.7); Neutrophil % 54.3 % (47-70); Platelet Count 201 K/mm3 (150-450); RBC Distribution Width CV 19.4 % (11.6-14.6); RBC Distribution Width SD 48.8 fl (35.1-43.9); Red Blood Count 5.36 M/mm3 (4.6-6.2); White Blood Count 4.9 K/mm3 (4.4-11.0)
--- NOTE | 2025-01-10 11:50 | CT_ITS ---
EXAM: BRAIN/HEAD WITHOUT CONTRAST CLINICAL HISTORY: Increasing confusion following a fall. History of fever. History of lung cancer. COMPARISON: Comparison is made with prior study dated October 10, 2023. TECHNIQUE: Multiple axial tomographic images were obtained without intravenous contrast administration. Coronal and sagittal reconstruction was obtained as well. FINDINGS: Cerebral atrophy. Focal encephalomalacia in the left occipital lobe with persistent vasogenic edema adjacent to the posterior horn of the left lateral ventricle. A repeat examination following IV contrast is recommended to rule out possible lesion. CT/Brain/Head without Contrast IMPRESSION: Persistent vasogenic edema adjacent to the posterior horn of the left lateral v entricle as described. A repeat study with IV contrast recommended. Reading Location: [facility]
--- NOTE | 2025-01-10 11:55 | RAD_ITS ---
EXAM: XR Chest, 1 View CLINICAL INDICATION: TECHNIQUE: Frontal view of the chest. COMPARISON: No relevant prior studies available. FINDINGS: LUNGS AND PLEURAL SPACES: Bibasilar atelectasis or pneumonia. HEART: Unremarkable. No cardiomegaly. MEDIASTINUM: Unremarkable. Normal mediastinal contour. BONES/JOINTS: Unremarkable. No acute fracture. TUBES, LINES AND DEVICES: Right-sided Mediport with the distal tip in the SVC. No pneumothorax. RAD/Chest 1 View (Portable) IMPRESSION: Bibasilar atelectasis or pneumonia. Reading Location: [facility]
[2025-01-10 12:34] LABS: ALB/GLOB Ratio 1.5 RATIO (0.9-2.4); Alanine Aminotransfer ALT/SGPT 8 U/L (<=46); Albumin, Serum 2.8 g/dL (3.4-4.8); Alkaline Phosphatase 51 U/L (40-129); Anion Gap 13 (5-15); BUN 13 mg/dL (4-19); BUN/Creat Ratio 11.6 RATIO (10-20); Calcium,Total 8.1 mg/dL (7.6-11.0); Carbon Dioxide 17.1 mmol/L (21.0-32.0); Chloride 107 mmol/L (98-108); Creatinine, Serum 1.15 mg/dL (0.70-1.20); EST Glomerular Filtration Rate 68 (>60); Estimated Creatinine Clearance 60.95 ml/min (50-250); Globulin 1.8 g/dL (2.2-4.2); Glucose 91 mg/dL (70-99); Potassium 3.6 mmol/L (3.3-5.1); Protein, Total 4.7 g/dL (5.9-8.4); Sodium Level 137 mmol/L (133-145); Total Bilirubin 0.43 mg/dL (0.00-1.30)
[2025-01-10 12:47] LABS: AST(SGOT) 19 U/L (<=37)
--- NOTE | 2025-01-10 13:24 | PCM.HP.STD ---
[facility] Date of Service: 01/10/25 Chief Complaint: Persistent diarrhea with fevers and chills and fall with weakness HPI Narrative KENN IRAHETA, is a 69 M who presented to [facility] ED on 01/10/2025 with persistent diarrhea with fevers and chills and a fall at home with weakness. Patient was seen in the ED 3 days ago for vomiting and diarrhea with some blood in the stool. He is on Eliquis 2.5 mg twice daily for prior history of DVT/PE and that was held. Notably is on lower dose of Eliquis due to history of nosebleeds and excessive bruising. Patient has had no further blood in the stool but has continued to have profuse watery diarrhea. Has had minimal appetite and has not been eating or drinking much. He also developed a fever yesterday up to 103. Has not had any significant abdominal pain throughout this time. Today patient's heard a thud at home and patient stated he had fallen to the floor and then climbed back into bed, but he was feeling very weak. Did not think that he hit his head. Patient's history is notable for both metastatic renal cell carcinoma s/p left nephrectomy with mets to the brain and right adrenal gland, along with second primary malignancy of non-small cell lung cancer. Patient follows with [facility], last office visit was on 12/21. Patient is currently only on Keytruda and has been on this since 2020, has gone through over 50 cycles. Denies any prior history of diarrhea or abdominal issues secondary to Keytruda. Patient notably did have a suspected upper respiratory infection about 1 month ago and completed short course of antibiotics and steroids for this. Did not have any diarrhea while on the antibiotics that he notes. In the ED patient was noted to be dry appearing on exam and was hypotensive to the 90s systolic. He was also in sinus tachycardia to the 110s and was febrile to 103.0F. Was also noted to be hypoxic requiring 6 L nasal cannula to maintain appropriate oxygen saturations. Patient does not wear any oxygen at baseline. Chest x-ray showed bibasilar atelectasis versus pneumonia. CT brain was unremarkable. He was given 1 L of IV fluids with improvement in blood pressure to the 110s systolic and improvement in the heart rate to 100s. However, he remained hypoxic and needed 8 L high flow nasal cannula after the IV fluids. Given these findings, hospitalist contacted for admission. I saw the patient at bedside in the ED, was present. Patient was fatigued appearing and did have mild increased work of breathing noted at rest. He was flushed appearing in the face. He was alert and oriented x 3. Stated that he had mild abdominal cramping but no abdominal pain currently. He denied feeling short of breath currently but was not able to tell me whether he has had any shortness of breath on exertion. He was taking the Eliquis as normal until the ED visit 3 days ago. No lower extremity pain or swelling noted on exam. Given his worsening oxygen requirements with fairly benign chest x-ray and history of PE with therapeutic dosing of Eliquis along with persistent diarrhea of unclear etiology, decision was made to obtain CT chest abdomen pelvis with IV contrast. CT showed no PE, nodular densities in the right middle and right lower lobe which may resent atypical infection versus neoplastic/metastatic disease and no concerning intra-abdominal findings. Will be admitted for further management. [facility] [place] Medical History COPD exacerbation History of steroid therapy Low iron Seizures Shortness of breath on exertion History of pain when walking History of edema History of echocardiogram Cardiology follow-up encounter Cervical spinal cord injury Cervical stenosis of spine Numbness in right leg RUE numbness Diarrhea Hypokalemia Duodenal ulcer Anemia Diabetes mellitus, type 2 Hyperglycemia Hyponatremia Thrombocytopenia Pulmonary emboli COPD (chronic obstructive pulmonary disease) Imbalance Brain metastasis Pneumonia Sinus congestion Hx of radiation therapy Brain metastasis Frequent headaches Epistaxis Contact with or suspected exposure to other viral communicable disease Iron deficiency anemia due to chronic blood loss Encounter for immunotherapy Encounter for immunotherapy COVID-19 Nonrheumatic aortic (valve) stenosis with insufficiency Elevated troponin (05/15/21) Encephalopathy (05/15/21) Seizure (05/15/21) Metastatic renal cell carcinoma to lung Dyspnea Metastasis to adrenal gland Port-A-Cath in place Atherosclerotic heart disease of [place] coronary artery without angina pectoris Hyperlipidemia Wears glasses Wears dentures Gastric reflux Former smoker History of primary malignant neoplasm of left kidney 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 Skin cancer Abnormal colonoscopy Essential (primary) hypertension COPD (chronic obstructive pulmonary disease) Adenocarcinoma of right lung Home Medications ?Medication ?Instructions ?Recorded ?Last Taken ?Type rosuvastatin 40 mg tablet (Crestor) 40 mg PO QHS CHOLESTEROL 08/18/18 12/13/24 History carvedilol 25 mg tablet 25 mg PO BID blood pressure 04/30/21 12/14/24 10:00 History albuterol sulfate 90 mcg/actuation 1 puff inhalation Q6H PRN SOB 05/31/21 06/12/21 History aerosol inhaler hydralazine 50 mg tablet 50 mg PO BID diuretic 05/31/21 12/14/24 10:00 History apixaban 5 mg tablet (Eliquis) 2.5 mg (1/2 x 5 mg) PO BID #60 tabs 07/20/23 12/14/24 10:00 Rx Held on 01/07/25. Instructions: See instructions on page 1 amlodipine 10 mg tablet 10 mg PO DAILY Check with primary 08/21/23 12/14/24 10:00 Rx doctor #90 tabs ipratropium 0.5 mg-albuterol 3 mg 3 ml inhalation Q4H PRN shortness 09/07/23 Unknown Rx (2.5 mg base)/3 mL nebulization of breath or wheezing #180 mL soln omeprazole 20 mg capsule,delayed 20 mg PO QDAY 06/09/24 12/14/24 History release acetaminophen 500 mg tablet 500 mg PO Q6H PRN fever or pain 08/05/24 Unknown History lidocaine-prilocaine 2.5 %-2.5 % 1 applic topical ONCE PRN Port 09/07/24 Unknown Rx topical cream access 30 days #30 grams pembrolizumab 25 mg/mL intravenous 200 mg IV .COMPLEX 12/14/24 11/30/24 History solution (Keytruda) ondansetron 8 mg disintegrating 8 mg PO Q8H PRN nausea and 01/07/25 Unknown Rx tablet vomiting #12 tabs Allergy/AdvReac Type Severity Reaction Status Date / Time No Known Allergies Allergy Verified 01/07/25 02:18 Family History Sister Diabetes CAD (coronary artery disease) Mother CVA (cerebral vascular accident) CAD (coronary artery disease) Lung cancer Father CAD (coronary artery disease) Brother CAD (coronary artery disease) Surgical History H/O cervical discectomy History of cataract surgery History of lobectomy of lung History of nephrectomy, left History of coronary angioplasty (01/05/04) History of coronary artery stent placement (07/17/03) Social History household members: spouse Smoking Status: Former smoker Tobacco: How many years used: 40 second hand exposure: No alcohol intake: current alcohol intake frequency: a few times a month Alcohol type: beer substance use type: does not use seatbelt use: always do you feel safe at home: Yes ROS Constitutional Constitutional: Reports chills, fatigue, fever(s) and weakness Eyes Eyes: Denies change in vision Cardiovascular Cardiovascular: Reports dyspnea on exertion; Denies chest pain, edema, lightheadedness, palpitations or syncope Respiratory/Chest Respiratory/Chest: Reports dyspnea and shortness of breath with exertion; Denies cough, productive cough, shortness of breath at rest or wheezing Gastrointestinal Gastrointestinal: Reports diarrhea, loose stools, nausea and vomiting; Denies abdominal pain or constipation Genitourinary Genitourinary: Denies dysuria Musculoskeletal Musculoskeletal: Denies arthralgias or myalgias Neurologic Neurologic: Denies confusion, dizziness, focal weakness or headache(s) Vital Signs Vital Signs Vital Signs: 01/10/25 09:59 01/10/25 10:06 01/10/25 10:10 Temperature 103.0 F H 103.0 F H Temperature Source Axillary Axillary Pulse Rate 115 H 113 H Respiratory Rate 33 H 29 H Respiratory Effort Normal Non-Labored Respiratory Depth Normal Respiratory Pattern Tachypnea Blood Pressure 135/62 H 135/62 H Blood Pressure Mean 86 86 Pulse Ox 96 94 96 Oxygen Delivery Method Nasal Cannula Nasal Cannula Nasal Cannula Oxygen Flow Rate (L/min) 6 6 6 01/10/25 11:00 01/10/25 11:00 01/10/25 12:00 Temperature 103 F H 103 F H 103 F H Temperature Source Axillary Axillary Axillary Pulse Rate 113 H 113 H 108 H Respiratory Rate 26 H 26 H 26 H Respiratory Effort Respiratory Depth Respiratory Pattern Blood Pressure 122/55 H 122/55 H 97/50 L Blood Pressure Mean 77 77 65 Pulse Ox 97 96 Oxygen Delivery Method Nasal Cannula Nasal Cannula Oxygen Flow Rate (L/min) 6 6 01/10/25 12:12 01/10/25 12:12 01/10/25 13:00 Temperature 98.3 F Temperature Source Oral Pulse Rate 104 H Respiratory Rate 22 H Respiratory Effort Respiratory Depth Respiratory Pattern Blood Pressure 115/84 H Blood Pressure Mean 94 Pulse Ox 83 94 95 Oxygen Delivery Method Nasal Cannula High Flow High Flow Oxygen Flow Rate (L/min) 6 8 8 Weight Weight: 90.6 kg Body Mass Index (BMI) 33.2 Physical Exam Const alert, oriented x3 and no apparent distress Constitutional Narrative: Elderly male, class I obesity, fatigued and somewhat flushed appearing, mild increased work of breathing noted, otherwise laying back comfortably in bed, answering questions appropriately. General Appearance: cooperative and comfortable HEENT normocephalic, head/scalp atraumatic, hearing grossly normal bilaterally and nasal mucous membranes and turbinates normal HEENT Narrative: Dry mucous membranes. Eyes PERRL, EOMs intact bilaterally and conjunctivae normal Neck full ROM Chest inspection of chest normal Resp Resp Narrative: Mild increased work of breathing noted on 8 L high flow nasal cannula. Mildly diminished breath sounds bilaterally worst in lung bases but no wheezing or crackles noted. Cardio regular rate, regular rhythm, no murmurs and peripheral pulses 2+ throughout GI normal to inspection, nondistended, normoactive bowel sounds, soft to palpation, non-tender and non-distended Back/Spine normal ROM Extremity normal to inspection, full ROM and no pedal edema Skin no rashes or lesions noted Neuro moves all extremities and no focal motor deficits Speech: speech normal Motor Exam: strength 5/5 throughout Psych mental status grossly normal Psych Narrative: Flat affect. Results Lab / Micro Data 01/10/25 11:38 01/10/25 11:38 Labs: Laboratory Results - last 24 hr 01/10/25 11:38: WBC 4.9, RBC 5.36, Hgb 12.3 L, Hct 38.4 L, MCV 71.6 L, MCH 22.9 L, MCHC 32.0, RDW Std Deviation 48.8 H, RDW Coeff of Kailey 19.4 H, Plt Count 201, MPV 8.8, Immature Gran % (Auto) 3.200 H, Neut % (Auto) 54.3, Lymph % (Auto) 16.8 L, [place] % (Auto) 21.9 H, Eos % (Auto) 2.8, Baso % (Auto) 1.0, Absolute Neuts (auto) 2.7, Absolute Lymphs (auto) 0.83, Nucleated RBC % 0, Sodium 137, Potassium 3.6, Chloride 107, Carbon Dioxide 17.1 L, Anion Gap 13, BUN 13, Creatinine 1.15, Estim Creat Clear Calc 60.95, Est GFR (MDRD) Non-Af 68, BUN/Creatinine Ratio 11.6, Glucose 91, Calcium 8.1, Total Bilirubin 0.43, AST 19, ALT 8, Alkaline Phosphatase 51, Total Protein 4.7 L, Albumin 2.8 L, Globulin 1.8 L, Albumin/Globulin Ratio 1.5 Rhythm Strip Rhythm Strip: Sinus Tach Rate: 114 Ectopy: None Imaging Radiology Impression Brain CT 01/10/25 11:50 IMPRESSION: Persistent vasogenic edema adjacent to the posterior horn of the left lateral ventricle as described. A repeat study with IV contrast recommended. Reading Location: [id number] Chest X-Ray 01/10/25 11:55 IMPRESSION: Bibasilar atelectasis or pneumonia. Reading [facility] Assessment & Plan Assessment/Plan (1) Hypoxemia: (2) Dehydration: (3) Declining functional status: PLAN: Plan Patient is a 69-year-old male who presented to [facility] ED on 01/10/2025 with persistent diarrhea with fevers/chills and a fall at home with weakness. 1. Acute hypoxic respiratory failure with concern for community-acquired pneumonia ? Admit under inpatient status to PCU. Patient requiring 8 L high flow nasal cannula on admit to maintain appropriate oxygen saturations. Not on home oxygen. CTA chest showed no PE, did show nodular densities in the right middle and right lower lobes concerning for atypical infection versus metastatic disease. Febrile to 103F in the ED. COVID/flu/RSV pending. Sputum culture ordered. Blood cultures ordered. Will treat empirically with IV vancomycin and Zosyn for now. Wean supplemental oxygen as able. 2. Persistent diarrhea with dehydration and mild nonanion gap metabolic acidosis ? Patient with worsening persistent diarrhea over the past 4 to 5 days. Bicarb 18 on 01/07 ED visit and down to 17 on this admission. Patient reports fairly poor p.o. intake over that time. Given 1 L of IV fluids in the ED and will give another 1 L of fluids at this time. Monitor daily BMP. C. difficile ordered. Notably stool studies from 01/07 showed positive lactoferrin but negative stool panel. Will monitor closely. 3. Acute on chronic debility ? PT/OT/case management consulted. Suspect patient's weakness is primarily due to dehydration from ongoing diarrhea along with respiratory failure with possible pneumonia. Treatment as above. Currently lives at home with . Appreciate therapy recommendations. 4. Metastatic renal cell carcinoma s/p left nephrectomy and non-small cell lung cancer on immunotherapy ? Follows with oncology, last office visit on 12/21. CT chest abdomen pelvis on admit with stable cancer findings. No inpatient needs, continue outpatient follow-up. 5. History of DVT/PE ? CTA chest on admit with no PE. Will restart home Eliquis 2.5 mg twice daily; notably this was held on 01/07 for concern for blood in the stool. Patient is on lower dose of Eliquis given history of excessive bruising and nosebleeds. Chronic medical conditions: ? Class I obesity: BMI 33 on admit. Complicates hospital course, care and prognosis. ? History of CAD with stenting, hypertension, hyperlipidemia: Continue home rosuvastatin. Holding home blood pressure medications for now given hypotension and dehydration on admit. ? GERD: Continue home PPI. DVT prophylaxis: Not indicated, on Eliquis CODE STATUS: DNR CCA, DNI Expected disposition: TBD Total clinical time spent by myself addressing the patient's medical issues, reviewing all the data, and collaborating with patient's care team: 75 minutes. Charges/Coding Visit Charges Inpatient E&M: 96089 Init Hosp L3
--- NOTE | 2025-01-10 13:58 | CT_ITS ---
PROCEDURE: CT CHEST, ABD, PEL W/CONTRAST REASON FOR EXAM: Evaluate for PE, persistent diarrhea with abdominal discomfort TECHNIQUE: Chest, abdomen and pelvis CT with intravenous contrast. COMPARISON: 08/09/2024 FINDINGS: CT CHEST: Hardware: None. Lymph nodes: Pretracheal lymph node measuring 17 mm image 194 Heart and Vasculature: Mild cardiomegaly. No pericardial effusion diffuse coronary artery calcifications. Atherosclerotic calcifications of the thoracic aorta. Pulmonary arteries are unremarkable with no filling defects to suggest pulmonary embolism. Lungs and Airways: Patchy and nodular infiltrates in the left upper lobe. Pulmonary nodules are noted with the largest measuring 5 mm image 139 in the right upper lobe. Another peripheral 9 mm nodule is noted in the right middle lobe image 86. Pleura: No pleural effusion. No pneumothorax. Bones: Degenerative changes of the thoracic spine. CT ABDOMEN/PELVIS: Liver: Diffuse fatty infiltration. Moderately enlarged with no masses mild intrahepatic biliary dilatation Gallbladder: Unremarkable. Spleen: Enlarged Pancreas: Normal size without evidence of mass surrounding inflammation or ductal dilation. Adrenals: Unremarkable. Kidneys: Unremarkable. Bladder: Status post left nephrectomy. Left kidney contains a solid enhancing lesion in the medial midpole measuring 3.6 cm. There is a 2.2 mm lower pole mid mass with fat density consistent with a lipoma/angiomyolipoma. There is a low-density exophytic mass in the lower pole measuring 2.3 cm likely representing a cyst. Reproductive Organs: Prostate measures 3.6 cm in transverse dimension. Bowel: Unremarkable. Appendix: Normal. Lymph nodes: No suspicious lymph node enlargement. Vasculature: The abdominal aorta and IVC are normal. Peritoneum / Retroperitoneum: No ascites. No free air. Bones: Degenerative changes of the spine. Hernia: Bilateral fat containing inguinal hernias CT/CT Chest, Abd, Pel w/Contrast IMPRESSION: 1. No CT evidence of acute pulmonary embolism. 2. Stable right renal mass suggestive of renal cell carcinoma. Exophytic cyst and lipoma/angiomyolipoma are also noted in the right kidney. 3. Nodular densities in the right middle and right lower lobe which may repres ent atypical infection versus neoplastic/metastatic disease. 4. Hepatic steatosis and hepatomegaly 5. Mild intrahepatic biliary dilatation 6. Mild splenomegaly One or more dose reduction techniques were used (e.g., Automated exposure contr ol, adjustment of the mA and/or kV according to patient size, use of iterative reconstruction technique). Reading Location: [facility]
[2025-01-10 14:51] LABS: Mucous, Urine 0 SEEN /hpf (<or=2+); Squamous Epithelial Cells - UA 0 SEEN /hpf (0-5)
[2025-01-10 15:01] LABS: Color, Urine Yellow (Yellow); Glucose, Dipstick Normal (Normal); Ketone-Dipstick 15 mg/dl (Negative); Leukocyte Esterase-Dipstick 25 /ul (Negative); Nitrite-Dipstick Negative (Negative); Occult Blood-Urine Negative /ul (Negative); Protein-Dipstick 15 mg/dl (Negative); Urine Bilirubin Dipstick Negative (Negative); Urine Clarity Sl. Cloudy (Clear); Urine Urobilinogen Normal (Normal)
[2025-01-10] MEDS: Lactated Ringers 1,000 ML 150 ML IV (15:02)
[2025-01-10 15:19] LABS: Bacteria 1+ /hpf (None Seen)
[2025-01-10 15:20] LABS: Red Blood Cells-Urine 0-5 SEEN /hpf (0-5); White Blood Cells 10-25 SEEN /hpf (0-5)
[2025-01-10 15:22] LABS: Transitional Epithelial - Ur 0-5 SEEN /hpf (0-5)
--- NOTE | 2025-01-10 15:46 | CASEMGMT ---
CM Assessment SW confirmed that all previous information provided for CM assessment is still accurate. No further needs identified at this time. Marilee Marley, DESTINATION COORDINATOR, STORE ASSOCIATE
[2025-01-10 16:00] LABS: Procalcitonin 0.71 ng/mL (<=0.10)
[2025-01-10] MEDS: Piperacil/Tazobactam 3.375 GM in 0.9% Normal Saline (50mL MB+) 50 ML IV (16:02)
[2025-01-10] MEDS: Acetaminophen 325 MG Tablet 650 MG PO (17:26)
[2025-01-10] MEDS: Pantoprazole Sodium 20 MG Tablet PO (21:08)
[2025-01-10] MEDS: Atorvastatin Calcium 80 MG Tablet PO (21:08)
[2025-01-10] MEDS: Oseltamivir Phosphate 75 MG Capsule PO (22:04)
[2025-01-11] VITALS (26 sets, daily range): BP systolic 87–150; BP diastolic 42–132; PULSE 89–111; RESP 20–36; TEMP 36.5–38.9; O2SAT 8–99
[2025-01-11] MEDS: Acetaminophen 325 MG Tablet 650 MG PO ×2 (04:55→23:09)
[2025-01-11 07:01] LABS: Hematocrit 35.2 % (40-54); Hemoglobin 11.2 g/dL (13.0-16.5); Mean Corp Hgb Conc 31.8 g/dL (32-36); Mean Corpuscular Hgb 23.2 pg (27.0-32.0); Mean Corpuscular Volume 72.9 fL (80-94); Mean Platelet Vol. 9.4 fl (6.2-12.0); Platelet Count 182 K/mm3 (150-450); RBC Distribution Width CV 19.2 % (11.6-14.6); RBC Distribution Width SD 50.2 fl (35.1-43.9); Red Blood Count 4.83 M/mm3 (4.6-6.2); White Blood Count 7.5 K/mm3 (4.4-11.0)
[2025-01-11 08:23] LABS: Anion Gap 13 (5-15); BUN 13 mg/dL (4-19); BUN/Creat Ratio 9.1 RATIO (10-20); Calcium,Total 7.7 mg/dL (7.6-11.0); Carbon Dioxide 16.3 mmol/L (21.0-32.0); Chloride 107 mmol/L (98-108); Creatinine, Serum 1.41 mg/dL (0.70-1.20); EST Glomerular Filtration Rate 53 (>60); Estimated Creatinine Clearance 49.06 ml/min (50-250); Glucose 76 mg/dL (70-99); Potassium 3.7 mmol/L (3.3-5.1); Sodium Level 136 mmol/L (133-145)
[2025-01-11] MEDS: APIXABAN 2.5 MG TABLET (WCH) PO (09:17)
[2025-01-11] MEDS: Pantoprazole Sodium 20 MG Tablet PO (09:18)
[2025-01-11] MEDS: Ipratropium/Albuterol Sulfate 3 ML AMPUL.NEB INHALATION ×2 (09:27→22:52)
--- NOTE | 2025-01-11 09:37 | PCM.PN.HOSP ---
Reason for Visit Reason for Visit: Diagnoses Dehydration (01/10/25) Hypoxemia (01/10/25) Other malaise (01/10/25) Subjective Subjective Ongoing diarrhea, multiple bowel movements last night Significant anorexia, since e last 2 weeks Still requiring oxygen Objective Data Objective Data Vital Signs: Vital Signs Temp Pulse Resp BP Pulse Ox O2 Del Method O2 Flow Rate 98.5 F 97 22 H 105/64 99 High Flow 6 01/11/25 09:11 01/11/25 09:11 01/11/25 09:11 01/11/25 09:11 01/11/25 09:19 01/11/25 09:19 01/11/25 09:19 Oxygen Flow Rate (L/min) 6 Oxygen Delivery Method High Flow Weight: 194 lb 7.163 oz Body Mass Index (BMI) 32.3 Intake & Output: Intake and Output for Last 24 Hours 01/09/25 01/10/25 01/11/25 23:59 23:59 23:59 Intake Total 2790 / 3010 220 / 220 Balance 2790 / 3010 220 / 220 Lab / Micro Data Attestation: I reviewed the patient's lab results. 01/11/25 06:09 01/11/25 06:09 Labs: Laboratory Results - last 24 hr 01/10/25 11:38: WBC 4.9, RBC 5.36, Hgb 12.3 L, Hct 38.4 L, MCV 71.6 L, MCH 22.9 L, MCHC 32.0, RDW Std Deviation 48.8 H, RDW Coeff of Kailey 19.4 H, Plt Count 201, MPV 8.8, Immature Gran % (Auto) 3.200 H, Neut % (Auto) 54.3, Lymph % (Auto) 16.8 L, [place] % (Auto) 21.9 H, Eos % (Auto) 2.8, Baso % (Auto) 1.0, Absolute Neuts (auto) 2.7, Absolute Lymphs (auto) 0.83, Nucleated RBC % 0, Sodium 137, Potassium 3.6, Chloride 107, Carbon Dioxide 17.1 L, Anion Gap 13, BUN 13, Creatinine 1.15, Estim Creat Clear Calc 60.95, Est GFR (MDRD) Non-Af 68, BUN/Creatinine Ratio 11.6, Glucose 91, Calcium 8.1, Total Bilirubin 0.43, AST 19, ALT 8, Alkaline Phosphatase 51, Total Protein 4.7 L, Albumin 2.8 L, Globulin 1.8 L, Albumin/Globulin Ratio 1.5 01/10/25 14:46: Urine Color Yellow, Urine Clarity Sl. Cloudy, Urine pH 6.0, Ur Specific Kohler 1.010, Urine Protein 15 H, Urine Glucose (UA) Normal, Urine Ketones 15 H, Urine Occult Blood Negative, Urine Nitrite Negative, Urine Bilirubin Negative, Urine Urobilinogen Normal, Ur Leukocyte Esterase 25 H, Urine RBC 0-5 SEEN, Urine WBC 10-25 SEEN, Ur Squamous Epith Cells 0 SEEN, Ur Transition Epith Cell 0-5 SEEN, Urine Bacteria 1+, Urine Mucus 0 SEEN 01/10/25 15:03: Procalcitonin 0.71 H 01/11/25 06:09: WBC 7.5, RBC 4.83, Hgb 11.2 L, Hct 35.2 L, MCV 72.9 L, MCH 23.2 L, MCHC 31.8 L, RDW Std Deviation 50.2 H, RDW Coeff of Kailey 19.2 H, Plt Count 182, MPV 9.4, Sodium 136, Potassium 3.7, Chloride 107, Carbon Dioxide 16.3 L, Anion Gap 13, BUN 13, Creatinine 1.41 H, Estim Creat Clear Calc 49.06 L, Est GFR (MDRD) Non-Af 53 L, BUN/Creatinine Ratio 9.1 L, Glucose 76, Calcium 7.7 Micro: Microbiology 01/11/25 02:20 Stool Clostridioides difficile (PCR) - Final 01/10/25 14:46 Mucosa - Nose SARS-CoV-2, Influenza & RSV (PCR) - Final Influenzae A Radiography Diagnostic Testing: Radiology Impression Brain CT 01/10/25 11:50 IMPRESSION: Persistent vasogenic edema adjacent to the posterior horn of the left lateral ventricle as described. A repeat study with IV contrast recommended. Reading Location: [id number] Chest X-Ray 01/10/25 11:55 IMPRESSION: Bibasilar atelectasis or pneumonia. Reading [facility] Chest/Abdomen/Pelvis CT 01/10/25 13:58 IMPRESSION: 1. No CT evidence of acute pulmonary embolism. 2. Stable right renal mass suggestive of renal cell carcinoma. Exophytic cyst and lipoma/angiomyolipoma are also noted in the right kidney. 3. Nodular densities in the right middle and right lower lobe which may represent atypical infection versus neoplastic/metastatic disease. 4. Hepatic steatosis and hepatomegaly 5. Mild intrahepatic biliary dilatation 6. Mild splenomegaly One or more dose reduction techniques were used (e.g., Automated exposure control, adjustment of the mA and/or kV according to patient size, use of iterative reconstruction technique). Reading Location: [facility] Rhythm Strip Rhythm Strip: Sinus Tach Rate: 114 Ectopy: None Physical Exam Const alert and oriented x3 HEENT head/scalp atraumatic Eyes PERRL Neck no lymphadenopathy Resp Resp Narrative: bilateral crepitations, decreased breath sounds, Cardio regular rate and regular rhythm GI normal to inspection, nondistended, normoactive bowel sounds Extremity normal to inspection Neuro oriented x3, CN's II-XII intact bilaterally, moves all extremities and no focal motor deficits Psych affect normal Assessment & Plan Assessment/Plan (1) Hypoxemia: PLAN: Plan 69 year old with history of RCC on Keytruda here for ongoing diarrhea and worsening SOB. At the time of presentation he was febrile and has been treated for suspected CAP. Given the severity of his diarrhea with associated nocturnal symptoms, anorexia, bleeding this could be a severe ICA related colitis. Will get gastroenterology opinion regarding sigmoidoscopy and biopsies to rule out immune checkpoint inhibitor colitis. Reason for shortness of breath is unclear, will repeat echocardiogram, previously he had grade 1 diastolic dysfunction, suspect some volume overload with the IV fluid transfusions in the ED. 1. Acute hypoxic respiratory failure with concern for community-acquired pneumonia ?Admit under inpatient status to PCU. -Patient requiring 8 L high flow nasal cannula on admit to maintain appropriate oxygen saturations. -Not on home oxygen. -CTA chest showed no PE, did show nodular densities in the right middle and right lower lobes concerning for atypical infection versus metastatic disease. -Febrile to 103F in the ED. -Will treat empirically with IV vancomycin and Zosyn for now. -Wean supplemental oxygen as able. -NT-proBNP 2. 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 -Bicarb 18 on 01/07 ED visit and down to 17 on this admission. -Patient reports fairly poor p.o. intake over that time. . -Gastroenterology consult, Dr. Chambers informed 3. Acute on chronic debility ? PT/OT/case management consulted. - Suspect patient's weakness is primarily due to ongoing diarrhea along with respiratory failure with possible pneumonia. - Treatment as above. Currently lives at home with . Appreciate therapy recommendations. 4. Metastatic renal cell carcinoma s/p left nephrectomy and non-small cell lung cancer on immunotherapy # Persistent right side mass ? Follows with oncology, last office visit on 12/21. CT chest abdomen pelvis on admit with stable cancer findings. -Hold monotherapy for 5. History of DVT/PE ? CTA chest on admit with no PE. -Hold Eliquis given the possibility of sigmoidoscopy Chronic medical conditions: ? Class I obesity: BMI 33 on admit. Complicates hospital course, care and prognosis. ? History of CAD with stenting, hypertension, hyperlipidemia: Continue home rosuvastatin. Holding home blood pressure medications for now given hypotension and dehydration on admit. ? GERD: Continue home PPI. Charges/Coding Visit Charges Inpatient E&M: 84130 Init Hosp L2
--- NOTE | 2025-01-11 10:10 | CASEMGMT ---
LUPE GAR chart review: Patient was admitted 12/14-12/16/24 for hypoxia and COPD exacerbation. See assessment from 12/15/24. Patient was discharged to home with family support and follow-up plans in place. Patient did not qualify for home oxygen at discharge. Patient returned to [facility] ED on 01/10/25 for complaint of fall, N/V/D. Patient was admitted for diarrhea with Dehydration and syncopal episode. RN CM in to discuss readmission and needs at discharge, at bedside. Patient attended follow-up appt with PCP and oncologist. Patient states he was taking medications as prescribed. Patient is currently on 6lpm of oxygen, will montior for home oxygen at discharge, prefers [employer]. Will monitor progress with therapy and recommendations. Patient and deny further needs or concerns and had no further questions. CM will continue to follow this patient and plan for a safe discharge. Discharge Disposition: Patient to discharge home with family support and follow-up plans in place. Will monitor for home oxygen and additional therapy.
[2025-01-11] MEDS: Oseltamivir Phosphate 75 MG Capsule PO ×2 (10:20→23:09)
--- NOTE | 2025-01-11 13:04 | ECHOD_ITS ---
Reason For Study Reason For Study: CHF Procedure This was a 2D Doppler, Color Flow transthoracic echocardiogram. The study was technically difficult. Exam performed portable in patient room. Left Ventricle Normal LV size. Mild concentric left ventricular hypertrophy. The left ventricular ejection fraction is 65 %. Stage 1 diastolic dysfunction. Right Ventricle Normal right ventricle. Atria The left and right atria are normal. Mitral Valve Moderate focal mitral valve calcification, bileaflet. Trivial mitral valve insufficiency. Tricuspid Valve Trivial tricuspid valve insufficiency. Normal pulmonary artery pressure. Aortic Valve Moderate aortic valve calcification with moderate aortic valve stenosis. Mean peak gradient 23 mmHg. Aortic valve area 1.2 cm??. Trivial to mild aortic valve regurgitation. Pulmonic Valve The pulmonic valve is not well visualized. Great Vessels Normal sized aortic root. Pericardium/Pleural No pericardial effusion. MMode/2D Measurements & Calculations LVIDd: 4.6 cm IVSd: 1.2 cm LVOT diam: 2.0 cm LVIDs: 2.8 cm LVPWd: 1.1 cm LVOT area: 3.1 cm2 RVDd: 3.2 cm FS: 39.3 % Ao root diam: 3.2 cm LAV(MOD-bp): 30.7 ml LVAd ap4: 27.2 cm2 LAV(MOD-bp) Indexed: 15.7 ml/m2 LVLd ap4: 8.2 cm LAV(MOD-sp2): 32.8 ml EDV(MOD-sp4): 74.6 ml LAV(MOD-sp4): 29.0 ml EDV(sp4-el): 76.9 ml LVAs ap4: 13.8 cm2 LVLs ap4: 6.6 cm ESV(MOD-sp4): 24.4 ml ESV(sp4-el): 24.5 ml EF(MOD-sp4): 67.4 % EF(sp4-el): 68.1 % SV(MOD-sp4): 50.3 ml SV(sp4-el): 52.4 ml LA A4 area: 13.6 cm2 SI(MOD-sp4): 25.7 ml/m2 LA dimension(2D): 3.4 cm RA A4 area: 14.2 cm2 TAPSE: 2.0 cm Time Measurements MV dec time: 0.21 sec Doppler Measurements & Calculations MV E max ildefonso: 68.6 cm/sec Lat Peak E' Ildefonso: 10.0 cm/sec Med Peak E' Ildefonso: 10.6 cm/sec MV A max ildefonso: 96.5 cm/sec E/E' lat: 6.9 E/E' med: 6.5 MV E/A: 0.71 Ao V2 max: 322.7 cm/sec LV V1 max: 118.3 cm/sec SV(LVOT): 63.8 ml Ao max P.7 mmHg LV V1 max P.6 mmHg Ao V2 mean: 225.6 cm/sec LV V1 mean P.0 mmHg Ao mean P.2 mmHg LV V1 mean: 81.5 cm/sec Ao V2 VTI: 54.1 cm LV V1 VTI: 20.5 cm AV (velocity ratio): 0.38 LINA(I,D): 1.2 cm2 LINA(V,D): 1.1 cm2 PA V2 max: 102.4 cm/sec TR max ildefonso: 224.7 cm/sec TR max P.2 mmHg ECHO/Echo Complete Interpretation Summary Mild concentric left ventricular hypertrophy. The left ventricular ejection fraction is 65 %. Stage 1 diastolic dysfunction. Moderate aortic valve calcification with moderate aortic valve stenosis. Mean p eak gradient 23 mmHg. Aortic valve area 1.2 cm??. Trivial to mild aortic valve regurgitation. Ordering Physician: Katlin Dwyer Referring Physician: VISHNU COTO Performed By: Gail Dove RDCS
[2025-01-11 14:17] LABS: ALB/GLOB Ratio 1.5 RATIO (0.9-2.4); AST(SGOT) 26 U/L (<=37); Alanine Aminotransfer ALT/SGPT 10 U/L (<=46); Albumin, Serum 2.6 g/dL (3.4-4.8); Alkaline Phosphatase 46 U/L (40-129); Globulin 1.7 g/dL (2.2-4.2); Pro- Brain NATRIURETIC PEPTIDE 2610 pg/mL (<=900); Protein, Total 4.3 g/dL (5.9-8.4); Total Bilirubin 0.45 mg/dL (0.00-1.30)
[2025-01-11] MEDS: Ensure Plus High Protein 120 ML LIQUID PO (17:08)
[2025-01-11] MEDS: Atorvastatin Calcium 80 MG Tablet PO (23:09)
--- NOTE | 2025-01-11 23:38 | PCM.HOSP.N ---
Hospitalist Note Patient with worsening respiratory status, now on 10L, tachypneic, febrile, persistent weak cough, hypotensive now with systolic in the 70s. Will administer 1 L normal saline, will obtain ABG as well as repeat chest x-ray to be cautious although CT pulm presentation just the day prior with no overt findings or concern of overload at that time. Will transition to the ICU to be cautious with environmental manager consultation. Patient of note is a DNR CCA no intubation. Will reassess blood pressure after initial 1 L bolus.
--- NOTE | 2025-01-11 23:59 | RAD_ITS ---
PROCEDURE: CHEST 1 VIEW (PORTABLE) REASON FOR EXAM: Dyspnea, worsening hypoxia TECHNIQUE: Frontal view of the chest. COMPARISON: 01/10/2025 at 12:02 FINDINGS: Right port and previous anterior cervical disc fusion hardware partially imaged again noted. Mild streaky opacities at the bases are not significantly changed. Pulmonary vascularity appears within limits. No focal consolidation identified. The cardiac and mediastinal contours appear unchanged. RAD/Chest 1 View (Portable) IMPRESSION: No significant interval change in appearance of the chest as above.. Reading Location: [id number]
[2025-01-12] VITALS (44 sets, daily range): BP systolic 71–120; BP diastolic 43–76; PULSE 82–108; RESP 12–37; TEMP 36.6–38.4; O2SAT 91–100; BMI 32.1
--- NOTE | 2025-01-12 00:04 | NURSING ---
Attempted to call re transfer. No answer left message to return call
[2025-01-12 00:17] LABS: Allen Test Positive; Base Excess -10 mmol/L (-2 to +2); Bicarbonate 15.3 mmol/L (22-26); Blood Gas Specimen Type ART; Mode Not entered; O2 Delivery Device Cannula; PO2 85 mmHG (75-100); RR 38; SITE R Radial; SO2 97 % (95-99); Total Carbon Dioxide 16 mmol/L
[2025-01-12] MEDS: 0.9% Normal Saline (1000mL) 1,000 ML 999 ML IV (00:31)
--- NOTE | 2025-01-12 01:28 | CON.PCM.CC_ITS ---
HPI Consult Data Date of Consult: 01/12/25 HPI Narrative Reason for Consultation: Hypoxic respiratory failure HPI Narrative: 69 yrs old male with past medical history of metastatic renal cell carcinoma, non small cell carcinoma of lung on immunotherapy, DVT/PE on Eliquis presented to ED for recurrent diarrhea. He is transferred to ICU for acute respiratory failure with increase in oxygen requirement. Patient is tested positive for flu A on 01/07/25 Labs significant for Cr 1.4, BNP 2610 He required 10 lts oxygen and still with increased shortness of breath He is currently on airvo On my evaluation of patient in ICU, he is on airvo 40L 65% in mild respiratory distress P/E: Awake, alert HEENT: Atraumatic Respiratory: Crackles on bilateral lower lung post CVS: S1, S2 are well heard Abd; Soft Extre: Trace edema FRONT END DRIVER: Awake, aert, oriented Assessment/Plan #Acute hypoxic respiratory failure most likely due to flu pneumonia Continue with Tamiflu,empiric antibiotics Oxygen supplement to keep Spo2 92% and above ABG while on 10 lts NC, noted Continue with oxygen supplement with Airvo Empiric antibiotics given immunosuppressive state # Hx of metastatic renal cell carcinoma/non small cell lung cancer On immunotherapy # Elevated BNP ECHO with EF of 65%, grade 1 diastolic failure, moderate Monitor fluid status Cardiology eval # Hypotension Received IVF bolus Monitor blood pressure Vasopressors as needed to keep MAP of 65 and above DVT prophylaxis: Apixiban Critical care time 60 minutes Entire encounter done via Telemedicine [facility] Medical History COPD exacerbation History of steroid therapy Low iron Seizures Shortness of breath on exertion History of pain when walking History of edema History of echocardiogram Cardiology follow-up encounter Cervical spinal cord injury Cervical stenosis of spine Numbness in right leg RUE numbness Diarrhea Hypokalemia Duodenal ulcer Anemia Diabetes mellitus, type 2 Hyperglycemia Hyponatremia Thrombocytopenia Pulmonary emboli COPD (chronic obstructive pulmonary disease) Imbalance Brain metastasis Pneumonia Sinus congestion Hx of radiation therapy Brain metastasis Frequent headaches Epistaxis Contact with or suspected exposure to other viral communicable disease Iron deficiency anemia due to chronic blood loss Encounter for immunotherapy Encounter for immunotherapy COVID-19 Nonrheumatic aortic (valve) stenosis with insufficiency Elevated troponin (05/15/21) Encephalopathy (05/15/21) Seizure (05/15/21) Metastatic renal cell carcinoma to lung Dyspnea Metastasis to adrenal gland Port-A-Cath in place Atherosclerotic heart disease of zuni coronary artery without angina pectoris Hyperlipidemia Wears glasses Wears dentures Gastric reflux Former smoker History of primary malignant neoplasm of left kidney 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 Skin cancer Abnormal colonoscopy Essential (primary) hypertension COPD (chronic obstructive pulmonary disease) Adenocarcinoma of right lung Home Medications ?Medication ?Instructions ?Recorded ?Last Taken ?Type rosuvastatin 40 mg tablet (Crestor) 40 mg PO QHS YING STEROL 08/18/18 01/09/25 20:00 History 40 mg carvedilol 25 mg tablet 25 mg PO BID blood pressure 04/30/21 01/09/25 20:00 History 25 mg albuterol sulfate 90 mcg/actuation 1 puff inhalation Q 6H PRN SOB 05/31/21 06/12/21 History aerosol inhaler hydralazine 50 mg tablet 50 mg PO BID blood pressure 05/31/21 01/09/25 20:00 History 50 mg apixaban 5 mg tablet (Eliquis) 2.5 mg (1/2 x 5 mg) PO BID #60 tabs 07/20/23 01/09/25 Rx Held on 01/07/25. Instructions: See instructions on page 1 amlodipine 10 mg tablet 10 mg PO DAILY Check with pr imary 08/21/23 01/09/25 08:12 Rx doctor #90 tabs 10 mg ipratropium 0.5 mg-albuterol 3 mg 3 ml inhalation Q4H PRN shortness 09/07/23 Unknown Rx (2.5 mg base)/3 mL nebulization of breath or wheezing #180 mL soln omeprazole 20 mg capsule,delayed 20 mg PO QDAY acid re ducer 06/09/24 01/09/25 08:00 History release 20 mg acetaminophen 500 mg tablet 500 mg PO Q6H PRN fever or pain 08/05/24 Unknown History lidocaine-prilocaine 2.5 %-2.5 % 1 applic topical ONCE PRN Port 09/07/24 Unknown Rx topical cream access 30 days #30 grams pembrolizumab 25 mg/mL intravenous 200 mg IV .COMPLEX 12/14/24 12/21/24 History solution (Keytruda) ondansetron 8 mg disintegrating 8 mg PO Q8H PRN nausea and 01/07/25 Unknown Rx tablet vomiting #12 tabs Allergy/AdvReac Type Severity Reaction Status Date / Time No Known Allergies Allergy Verified 01/07/25 02:18 Family History Sister Diabetes CAD (coronary artery disease) Mother CVA (cerebral vascular accident) CAD (coronary artery disease) Lung cancer Father CAD (coronary artery disease) Brother CAD (coronary artery disease) Surgical History H/O cervical discectomy History of cataract surgery History of lobectomy of lung History of nephrectomy, left History of coronary angioplasty (01/05/04) History of coronary artery stent placement (07/17/03) Social History household members: spouse Smoking Status: Former smoker Tobacco: How many years used: 40 second hand exposure: No alcohol intake: current alcohol intake frequency: a few times a month Alcohol type: beer substance use type: does not use seatbelt use: always do you feel safe at home: Yes Objective Data Objective Data Vital Signs: Vital Signs Last response 3 Temperature 37.8 C H 01/12/25 00:25 Temperature Source Temporal 01/12/25 00:25 Pulse Rate 104 H 01/12/25 01:00 Pulse Strength Normal (2+) 01/11/25 23:20 Respiratory Rate 32 H 01/12/25 01:00 Respiratory Effort Short of Breath 01/11/25 23:12 Respiratory Depth Shallow 01/11/25 23:12 Respiratory Pattern Tachypnea 01/12/25 00:35 Blood Pressure 93/52 L 01/12/25 01:00 Blood Pressure Mean 65 01/12/25 01:00 Blood Pressure Source Monitor 01/12/25 01:00 Blood Pressure Position Semi-Fowlers 01/12/25 01:00 Blood Pressure Location Right Arm 01/12/25 01:00 Pulse Ox 93 01/12/25 01:00 Oxygen Delivery Method Airvo 01/12/25 01:00 Oxygen Flow Rate (L/min) 45 01/12/25 01:00 Fraction of Inspired Oxygen (FIO2) 65 01/12/25 01:00 I&O: I&O Last 24 Hours 3 03/04/0201/11/25 01/12/25 11:59 23:59 11:59 Intake Total 220 / 340 120 / 340 Balance 220 / 340 120 / 340 I&O: Total Stay 3 01/10/25 09:58 thru 01/12/25 00:25 Intake Total 3130 Balance 3130 Current Meds Ordered / Administered: Current meds ordered / Administered 3 Generic Name Dose Route Start Last Admin Trade Name Freq PRN Reason Stop Dose Admin Acetaminophen 650 mg 01/10/25 16:40 01/11/25 23:09 Acetaminophen 325 Mg Tablet PO 650 mg Q6H PRN PRN Administration Pain 1-10 Or Fever>100.7 Al Hydroxide/Mg Hydroxide 15 ml 01/10/25 20:13 Mag Hydrox/Al Hydrox/Simeth 30 Ml Udc PO Q4H PRN PRN DYSPEPSIA/INDIGESTION Albuterol/Ipratropium 3 ml 01/10/25 16:40 01/11/25 22:52 Ipratropium/Albuterol Sulfate 3 Ml Ampul.Neb INHALATION 3 ml Q4H PRN Administration shortness of breath or wheezing Apixaban 2.5 mg 01/11/25 10:00 01/12/25 01:00 Apixaban 2.5 Mg Tablet ([facility]) PO Not Given BID DAVE Atorvastatin Calcium 80 mg 01/10/25 22:00 01/11/25 23:09 Atorvastatin Calcium 80 Mg Tablet PO 80 mg QHS DAVE Administration Melatonin 3 mg 01/10/25 16:40 Melatonin 3 Mg Tablet PO QHS PRN PRN INSOMNIA Nutritional Formula (Lactose Free) 120 ml 01/11/25 18:00 01/11/25 22:47 Ensure Plus High Protein 120 Ml Liquid PO Not Given 4X/DAY DAVE Ondansetron HCl 4 mg 01/10/25 16:40 Ondansetron 4 Mg/2 Ml Vial IV Q8H PRN PRN NAUSEA/VOMITING Oseltamivir Phosphate 75 mg 01/10/25 16:00 01/11/25 23:09 Oseltamivir Phosphate 75 Mg Capsule PO 75 mg BID DAVE Administration Pantoprazole Sodium 20 mg 01/10/25 20:15 01/11/25 09:18 Pantoprazole Sodium 20 Mg Tablet PO 20 mg DAILY DAVE Administration Sodium Chloride 10 - 40 ml 01/10/25 16:51 0.9% Saline Lock 10 Ml Syringe IV UD PRN Port-a-Cath (VAD)/R Port Flush Sodium Chloride 10 - 40 ml 01/10/25 16:51 0.9 % Nacl (Sterile) Posiflush 10 Ml IV UD PRN Port access or dressing change Sodium Chloride 10 - 40 ml 01/10/25 16:51 0.9% Saline Lock 10 Ml Syringe IV UD PRN SALINE FLUSH Medical Records Data Medical Nutrition Assessment Dietitian: Malnutrition Criteria Met Start: 01/11/25 14:42 Freq: Status: Active Protocol: Document 01/11/25 14:42 LO (Rec: 01/11/25 14:42 LO [id number]) Nutrition Malnutrition Evidence of Yes Malnutrition Exists Malnutrition (severe Chronic ): Evidenced By Suboptimal Energy Intake (Severe),Weight Loss (Severe) Clinical Problem Chronic Disease or Condition Related Malnutrition Etiology severe related to flu and metastatic cancer Signs/Symptoms as evidenced by 17lbs (8%) unintentional weight loss in 1 month and PO intakes <75% of estimated nutrition needs for 1 month Status Active Problem Recommendation Dietitian Continue liberalized Regular diet to optimize oral Recommendations/ intakes. Changes Will order 120ml EPHP chocolate 4x daily with medpass to provide supplemental energy if consumed. Lab / Micro Data 01/11/25 06:09 01/11/25 06:09 Labs: Laboratory Results - last 24 hr 01/11/25 06:09: WBC 7.5, RBC 4.83, Hgb 11.2 L, Hct 35.2 L, MCV 72.9 L, MCH 23.2 L, MCHC 31.8 L, RDW Std Deviation 50.2 H, RDW Coeff of Kailey 19.2 H, Plt Count 182, MPV 9.4, Sodium 136, Potassium 3.7, Chloride 107, Carbon Dioxide 16.3 L, Anion Gap 13, BUN 13, Creatinine 1.41 H, Estim Creat Clear Calc 49.06 L, Est GFR (MDRD) Non-Af 53 L, BUN/Creatinine Ratio 9.1 L, Glucose 76, Calcium 7.7, Total Bilirubin 0.45, AST 26, ALT 10, Alkaline Phosphatase 46, NT pro BNP II 2610 H, T otal Protein 4.3 L, Albumin 2.6 L, Globulin 1.7 L, Albumin/Globulin Ratio 1.5 Micro: Microbiology 01/10/25 14:46 Mucosa - Nose SARS-CoV-2, Influenza & RSV (PCR) - Final Influenzae A 01/11/25 02:20 Stool Clostridioides difficile (PCR) - Final ABG Data ABG results: ABG 01/12/25 00:13 Specimen Type ART Sample Site R Radial pH 7.40 Bicarbonate Actual 15.3 L Total CO2 16 Base Excess -10 L O2 Saturation 97 O2 % 12.0 ABG pCO2 25.0 L ABG pO2 85 Kaleb Test Positive Respiration Rate 38 O2 Delivery Device Cannula Vent Mode Not entered Rhythm Strip Rhythm Strip: Sinus Tach Rate: 114 Ectopy: None Imaging Radiology Impression Echocardiogram 01/11/25 13:04 Interpretation Summary Mild concentric left ventricular hypertrophy. The left ventricular ejection fraction is 65 %. Stage 1 diastolic dysfunction. Moderate aortic valve calcification with moderate aortic valve stenosis. Mean peak gradient 23 mmHg. Aortic valve area 1.2 cm??. Trivial to mild aortic valve regurgitation. Ordering Physician: Katlin Dwyer Referring Physician: VISHNU COTO Performed By: Gail Dove RDCS Chest X-Ray 01/11/25 23:59 IMPRESSION: No significant interval change in appearance of the chest as above.. Reading Location: [id number] Assessment and Plan . Assessment and plan: Critical Care Time: The entirety of this encounter was done via Telemedicine
[2025-01-12] MEDS: Menthol/Lanolin/Calamine/Znox 113 GM Tube 1 APPLIC TOPICAL ×3 (05:56→20:59)
--- NOTE | 2025-01-12 09:18 | PCM.PN.HOSP ---
Reason for Visit Reason for Visit: Diagnoses Dehydration (01/10/25) Hypoxemia (01/10/25) Other malaise (01/10/25) Subjective Subjective Persistent diarrhea, watery stools including nocturnal bowel movements Yesterday had worsening of his respiratory status increasing oxygen requirement did not respond to 1 L of normal saline bolus NT proBNP is elevated Objective Data Objective Data Vital Signs: Vital Signs Temp Pulse Resp BP Pulse Ox O2 Del Method O2 Flow Rate 97.8 F 93 27 H 102/49 L 98 Airvo 40 01/12/25 08:00 01/12/25 09:00 01/12/25 09:00 01/12/25 09:00 01/12/25 09:00 01/12/25 09:00 01/12/25 09:00 FiO2 60 01/12/25 09:00 Oxygen Flow Rate (L/min) 40 Oxygen Delivery Method Airvo Weight: 192 lb 10.944 oz Body Mass Index (BMI) 32.1 Intake & Output: Intake and Output for Last 24 Hours 01/10/25 01/11/25 01/12/25 23:59 23:59 23:59 Intake Total 2790 / 3010 340 / 340 1250 / 1250 Output Total 300 / 300 Balance 2790 / 3010 340 / 340 950 / 950 Medical Nutrition Assessment Dietitian: Malnutrition Criteria Met Start: 01/11/25 14:42 Freq: Status: Active Protocol: Document 01/11/25 14:42 LO (Rec: 01/11/25 14:42 LO [id number]) Nutrition Malnutrition Evidence of Yes Malnutrition Exists Malnutrition (severe Chronic ): Evidenced By Suboptimal Energy Intake (Severe),Weight Loss (Severe) Clinical Problem Chronic Disease or Condition Related Malnutrition Etiology severe related to flu and metastatic cancer Signs/Symptoms as evidenced by 17lbs (8%) unintentional weight loss in 1 month and PO intakes <75% of estimated nutrition needs for 1 month Status Active Problem Recommendation Dietitian Continue liberalized Regular diet to optimize oral Recommendations/ intakes. Changes Will order 120ml EPHP chocolate 4x daily with medpass to provide supplemental energy if consumed. Lab / Micro Data 01/11/25 06:09 01/11/25 06:09 Labs: Laboratory Results - last 24 hr 01/11/25 06:09: Total Bilirubin 0.45, AST 26, ALT 10, Alkaline Phosphatase 46, NT pro BNP II 2610 H, Total Protein 4.3 L, Albumin 2.6 L, Globulin 1.7 L, Albumin/Globulin Ratio 1.5 Micro: Microbiology 01/10/25 14:46 Mucosa - Nose SARS-CoV-2, Influenza & RSV (PCR) - Final Influenzae A 01/11/25 02:20 Stool Clostridioides difficile (PCR) - Final ABG Data ABG results: ABG 01/12/25 00:13 Specimen Type ART Sample Site R Radial pH 7.40 Bicarbonate Actual 15.3 L Total CO2 16 Base Excess -10 L O2 Saturation 97 O2 % 12.0 ABG pCO2 25.0 L ABG pO2 85 Kaleb Test Positive Respiration Rate 38 O2 Delivery Device Cannula Vent Mode Not entered Radiography Diagnostic Testing: Radiology Impression Echocardiogram 01/11/25 13:04 Interpretation Summary Mild concentric left ventricular hypertrophy. The left ventricular ejection fraction is 65 %. Stage 1 diastolic dysfunction. Moderate aortic valve calcification with moderate aortic valve stenosis. Mean peak gradient 23 mmHg. Aortic valve area 1.2 cm??. Trivial to mild aortic valve regurgitation. Ordering Physician: Katlin Dwyer Referring Physician: VISHNU COTO Performed By: Gail Dove RDCS Chest X-Ray 01/11/25 23:59 IMPRESSION: No significant interval change in appearance of the chest as above.. Reading Location: [facility] Rhythm Strip Rhythm Strip: Sinus Tach Rate: 114 Ectopy: None Physical Exam Const alert and oriented x3 HEENT head/scalp atraumatic Eyes PERRL Neck no lymphadenopathy Resp Resp Narrative: Increased respiratory effort, minimal crepitations bilaterally Auscultation: crackles bilateral Cardio regular rate and regular rhythm GI normal to inspection, nondistended, normoactive bowel sounds Extremity normal to inspection and full ROM Neuro oriented x3 and CN's II-XII intact bilaterally Assessment & Plan Assessment/Plan (1) Acute infective gastroenteritis: PLAN: Plan 69-year-old with history of metastatic renal cell carcinoma on Keytruda, here for ongoing diarrhea and worsening shortness of breath. There is strong suspicion for ICI related colitis [nocturnal diarrhea, ongoing for 2 to 3 weeks, watery stools, initially bloody] along with features of volume overload with underlying moderate aortic stenosis. (Acute issues are in bold) #Acute hypoxic respiratory failure #Concern for community-acquired pneumonia #Moderate aortic stenosis #Acute decompensated heart failure, elevated NT proBNP levels -Start him on BiPAP for respiratory support, positive pressure ventilation will also help with volume overload status -Continue empiric antibiotics with Zosyn and vancomycin -One-time dose of injection Lasix 40 mg IV stat -If no improvement, will consult cardiology #Persistent diarrhea #?Keytruda associated colitis -Will discuss with gastroenterology regarding role of sigmoidoscopy as the patient is now in CVICU -Given the strong suspicion we will start him on methylprednisone after biopsies are taken # Acute on chronic debility ? PT/OT/case management consulted. - Suspect patient's weakness is primarily due to ongoing diarrhea along with respiratory failure with possible pneumonia. - Treatment as above. Currently lives at home with . Appreciate therapy recommendations. # Metastatic renal cell carcinoma s/p left nephrectomy and non-small cell lung cancer on immunotherapy # Persistent right side mass ? Follows with oncology, last office visit on 12/21. CT chest abdomen pelvis on admit with stable cancer findings. -Hold monotherapy for # History of DVT/PE -CTA chest on admit with no PE. -Hold Eliquis given the possibility of sigmoidoscopy
[2025-01-12] MEDS: Furosemide 40 MG/4 ML Vial IV (09:35)
[2025-01-12] MEDS: 0.9% Saline Lock 10 ML Syringe IV ×2 (09:35→12:48)
[2025-01-12] MEDS: Pantoprazole Sodium 20 MG Tablet PO (09:39)
[2025-01-12] MEDS: Acetaminophen 325 MG Tablet 650 MG PO (12:49)
[2025-01-12 12:58] LABS: Absolute Lymphocyte Count 0.92 X10^3/uL (0.83-4.51); Basophil# 0.09 X10^3/uL; Basophil% 1.1 % (0-1); Eosinophil# 0.03 X10^3/uL; Eosinophils% 0.4 % (0-5); Hematocrit 37.2 % (40-54); Hemoglobin 11.7 g/dL (13.0-16.5); Lymphocyte # 0.92 X10^3/ul (0.83-4.51); Lymphocyte % 11.1 % (19-41); Mean Corp Hgb Conc 31.5 g/dL (32-36); Mean Corpuscular Volume 73.2 fL (80-94); Mean Platelet Vol. 9.8 fl (6.2-12.0); Monocyte# 0.99 X10^3/uL; NRBC Flagged by Analyzer 0 % (0-5); Neutrophil % 72.6 % (47-70); Platelet Count 171 K/mm3 (150-450); RBC Distribution Width CV 19.8 % (11.6-14.6); RBC Distribution Width SD 51.6 fl (35.1-43.9); Red Blood Count 5.08 M/mm3 (4.6-6.2); White Blood Count 8.3 K/mm3 (4.4-11.0)
[2025-01-12 13:31] LABS: ALB/GLOB Ratio 1.3 RATIO (0.9-2.4); AST(SGOT) 56 U/L (<=37); Alanine Aminotransfer ALT/SGPT 17 U/L (<=46); Albumin, Serum 2.6 g/dL (3.4-4.8); Alkaline Phosphatase 57 U/L (40-129); Anion Gap 16 (5-15); BUN 23 mg/dL (4-19); BUN/Creat Ratio 11.6 RATIO (10-20); Calcium,Total 7.9 mg/dL (7.6-11.0); Carbon Dioxide 15.4 mmol/L (21.0-32.0); Chloride 106 mmol/L (98-108); Creatinine, Serum 1.97 mg/dL (0.70-1.20); EST Glomerular Filtration Rate 36 (>60); Estimated Creatinine Clearance 34.96 ml/min (50-250); Globulin 1.9 g/dL (2.2-4.2); Glucose 78 mg/dL (70-99); Potassium 3.5 mmol/L (3.3-5.1); Protein, Total 4.5 g/dL (5.9-8.4); Sodium Level 137 mmol/L (133-145)
[2025-01-12] MEDS: Loperamide 2 MG Capsule PO (13:41)
[2025-01-12] MEDS: Vancomycin HCl 1,250 MG in 0.9% Normal Saline (250mL Bag) 250 ML 167 MG IV (14:47)
[2025-01-12] MEDS: Piperacil/Tazobactam 3.375 GM in 0.9% Normal Saline (50mL MB+) 50 ML IV ×2 (14:47→20:58)
--- NOTE | 2025-01-12 15:16 | PCM.RX.CS ---
Consult Antibiotic Management Pharmacy has been consulted to manage selected antibiotic: Vancomycin Type of Intervention Type of Consult: New start Suspected Infection Suspected Infection: Pneumonia Prior Doses of Antibiotics Prior Doses of Antibiotics Received/Current Regimen: Vancomycin 1250 mg IV x 1 given 01/12/25 @ 1447 Labs Labs: Sodium 137 mmol/L (133-145) 01/12/25 12:40 Potassium 3.5 mmol/L (3.3-5.1) 01/12/25 12:40 Chloride 106 mmol/L (98-108) 01/12/25 12:40 Carbon Dioxide 15.4 mmol/L (21.0-32.0) L 01/12/25 12:40 Anion Gap 16 (5-15) H 01/12/25 12:40 BUN 23 mg/dL (4-19) H 01/12/25 12:40 Creatinine 1.97 mg/dL (0.70-1.20) H 01/12/25 12:40 Est GFR (MDRD) Non-Af 36 (>60) L 01/12/25 12:40 BUN/Creatinine Ratio 11.6 RATIO (10-20) 01/12/25 12:40 Glucose 78 mg/dL (70-99) 01/12/25 12:40 Microbiology Microbiology: Microbiology 01/12/25 01:40 Sputum, Expectorated/Coughed Gram Stain - Final 01/10/25 14:46 Mucosa - Nose SARS-CoV-2, Influenza & RSV (PCR) - Final Influenzae A 01/11/25 02:20 Stool Clostridioides difficile (PCR) - Final Dosing Weight Weight used for dosin.4 kg Estimated Creatinine Clearance Estimated Creatinine Clearance: ~ 35 Goal Trough Goal Trough: 15-20 mcg/mL Pharmacy Plan for Drug Dosing Pharmacy Plan for Drug Dosing: Vancomycin 1250 mg IV x 1 followed by 1250 mg Q24H Pharmacy Service will continue to monitor and adjust dosing as required. Follow-Up Labs Follow-Up Labs: Trough: Vancomycin Date/Time Labs Ordered Labs to be done on [date and time ordered]: 01/14 @ 1434
[2025-01-12] MEDS: MethylPREDNISolone 125 MG/2 ML Vial 60 MG IV (15:46)
[2025-01-12] MEDS: Norepinephrine 8 MG in 0.9% Normal Saline (250mL Bag) 242 ML 9.4 MG CONT INF (16:20)
[2025-01-12] MEDS: Atorvastatin Calcium 80 MG Tablet PO (20:58)
[2025-01-12] MEDS: Oseltamivir Phosphate 75 MG Capsule PO (20:58)
[2025-01-12] MEDS: Norepinephrine 8 MG in 0.9% Normal Saline (250mL Bag) 242 ML 46.9 MG CONT INF (23:33)
[2025-01-13] VITALS (48 sets, daily range): BP systolic 89–138; BP diastolic 52–104; PULSE 85–103; RESP 17–27; TEMP 36.4–36.8; O2SAT 92–100; BMI 32.5
[2025-01-13] MEDS: Mag Hydrox/Al Hydrox/Simeth 30 ML UDC 15 ML PO (01:17)
[2025-01-13] MEDS: Norepinephrine 8 MG in 0.9% Normal Saline (250mL Bag) 242 ML 37.5 MG CONT INF (04:29)
[2025-01-13] MEDS: Menthol/Lanolin/Calamine/Znox 113 GM Tube 1 APPLIC TOPICAL ×2 (04:41→21:10)
[2025-01-13] MEDS: Piperacil/Tazobactam 3.375 GM in 0.9% Normal Saline (50mL MB+) 50 ML IV ×3 (04:41→21:09)
--- NOTE | 2025-01-13 07:45 | PN.CC_ITS ---
Assessment & Plan Assessment/Plan (1) Shock: PLAN: Plan RECOMMENDATIONS: 1. Continue to wean supplemental oxygen to maintain saturations at or above 90%. 2. Continue empiric antibiotics. 3. Continue to wean Levophed to maintain a mean arterial pressure at or above 65 mmHg. 4. Continue Tamiflu to complete treatment course. 5. Continue scheduled bronchodilators and steroids. IMPRESSIONS: 1. Multifactorial shock Most likely secondary to a combination of hypovolemic etiology with concern for Keytruda associated colitis and sepsis related to underlying pneumonia. For now, the patient will be continued on empiric antibiotics along with Levophed to maintain a mean arterial pressure at or above 65 mmHg. The patient has been maintained on steroids over concerns for the aforementioned colitis. There are tentative plans for possible sigmoidoscopy later today. GI infectious workup has been unrevealing to date. 2. Acute hypoxemic respiratory failure Most likely secondary to COPD exacerbation related to influenza A and concern for secondary bacterial pneumonia. The patient will be continued on supplemental oxygen with a goal to maintain saturations at or above 90%. Empiric antimicrobials will be continued. Scheduled bronchodilators will be initiated. Tamiflu will be continued to complete treatment course. 3. History of metastatic renal cell carcinoma status post nephrectomy/non-small cell carcinoma of the lung/coronary artery disease/history of pulmonary embolism/hypertension/hyperlipidemia Complicates care, management, recovery and prognosis. Continue to hold home antihypertensives. Remainder of supportive care, as noted above. TIME: 34 minutes of critical care time, independent of procedures, was spent addressing the patient's multifactorial shock, acute hypoxemic respiratory failure, review of all data and collaboration with the care team. Subjective Subjective The patient was seen and examined at the bedside this morning. Events from the last 24 hours have been reviewed. The patient is currently afebrile and hemodynamically stable on Levophed at 5 mcg/min. The patient is currently maintaining appropriate oxygen saturations on 5 L/min via nasal cannula. He is documented to be overall net +3.2 L for the hospitalization. The patient continues to have diarrhea. White blood cell count is normal. Hemoglobin and platelet count are stable. The patient has a medical history significant for metastatic renal cell cancer, non-small cell cancer of the lung, currently being followed by Dr. Rodriguez of oncology. In March 2021, the patient underwent a right lower lobe lobectomy. He does have an approximate [id number] smoking history, having quit completely in 2020. In addition to his personal smoking history, he did grow up in a smoking household. Pulmonary function studies completed in December 2022 demonstrated an irreversible mild large airways obstructive ventilatory defect with preserved lung volumes and diffusing capacity. Objective Data Objective Data The patient's most recent lab work, culture data and imaging studies have all been personally reviewed. Surface echocardiogram demonstrated mild concentric LVH with an ejection fraction of 65% and stage I diastolic dysfunction. Moderate aortic valve stenosis was noted. Influenza A PCR was positive on January 10. Blood and sputum cultures are currently pending. Vital Signs: Vital Signs Temp Pulse Resp BP Pulse Ox O2 Del Method O2 Flow Rate 98.2 F 89 21 H 105/58 L 100 Airvo 45 01/13/25 06:00 01/13/25 06:00 01/13/25 06:00 01/13/25 06:30 01/13/25 06:00 01/13/25 06:00 01/13/25 06:00 FiO2 45 01/13/25 06:00 Oxygen Flow Rate (L/min) 45 Oxygen Delivery Method Airvo Weight: 195 lb 1.745 oz Body Mass Index (BMI) 32.5 Intake & Output: Intake and Output for Last 24 Hours 01/11/25 01/12/25 01/13/25 23:59 23:59 23:59 Intake Total 340 / 340 2045.00 / 2416.11 685.93 / 685.93 Output Total 1450 / 1775 1125 / 1125 Balance 340 / 340 595.00 / 641.11 -439.07 / -439.07 Medical Nutrition Assessment Dietitian: Malnutrition Criteria Met Start: 01/11/25 14:42 Freq: Status: Active Protocol: Document 01/11/25 14:42 LO (Rec: 01/11/25 14:42 LO [id number]) Nutrition Malnutrition Evidence of Yes Malnutrition Exists Malnutrition (severe Chronic ): Evidenced By Suboptimal Energy Intake (Severe),Weight Loss (Severe) Clinical Problem Chronic Disease or Condition Related Malnutrition Etiology severe related to flu and metastatic cancer Signs/Symptoms as evidenced by 17lbs (8%) unintentional weight loss in 1 month and PO intakes <75% of estimated nutrition needs for 1 month Status Active Problem Recommendation Dietitian Continue liberalized Regular diet to optimize oral Recommendations/ intakes. Changes Will order 120ml EPHP chocolate 4x daily with medpass to provide supplemental energy if consumed. Lab / Micro Data Attestation: I reviewed the patient's lab results. 01/13/25 10:05 01/13/25 10:05 Labs: Laboratory Results - last 24 hr 01/12/25 12:40: WBC 8.3, RBC 5.08, Hgb 11.7 L, Hct 37.2 L, MCV 73.2 L, MCH 23.0 L, MCHC 31.5 L, RDW Std Deviation 51.6 H, RDW Coeff of Kailey 19.8 H, Plt Count 171, MPV 9.8, Immature Gran % (Auto) 2.800 H, Neut % (Auto) 72.6 H, Lymph % (Auto) 11.1 L, [place] % (Auto) 12.0 H, Eos % (Auto) 0.4, Baso % (Auto) 1.1 H, Absolute Neuts (auto) 6.0, Absolute Lymphs (auto) 0.92, Nucleated RBC % 0, Sodium 137, Potassium 3.5, Chloride 106, Carbon Dioxide 15.4 L, Anion Gap 16 H, BUN 23 H, Creatinine 1.97 H, Estim Creat Clear Calc 34.96 L, Est GFR (MDRD) Non- Af 36 L, BUN/Creatinine Ratio 11.6, Glucose 78, Calcium 7.9, Total Bilirubin 0.40, AST 56 H, ALT 17, Alkaline Phosphatase 57, Total Protein 4.5 L, Albumin 2.6 L, Globulin 1.9 L, Albumin/Globulin Ratio 1.3 Micro: Microbiology 01/12/25 01:40 Sputum, Expectorated/Coughed Gram Stain - Final 01/10/25 14:46 Mucosa - Nose SARS-CoV-2, Influenza & RSV (PCR) - Final Influenzae A 01/11/25 02:20 Stool Clostridioides difficile (PCR) - Final Rhythm Strip Rhythm Strip: Sinus Tach Rate: 114 Ectopy: None Physical Exam Const alert and no apparent distress General Appearance: cooperative HEENT normocephalic and head/scalp atraumatic Eyes EOMs intact bilaterally, conjunctivae normal and no scleral icterus Neck supple General: trachea midline Chest inspection of chest normal Resp normal respiratory effort Auscultation: rales Cardio regular rate and regular rhythm GI normal to inspection, nondistended, normoactive bowel sounds Extremity no clubbing, cyanosis or edema Skin no rashes or lesions noted Neuro CN's II-XII intact bilaterally, moves all extremities and no focal motor deficits Psych cooperative and affect normal Charges/Coding Procedures Hospitalists Procedures: [id number] Critical Care 1st Hr
[2025-01-13 10:13] LABS: Hematocrit 38.2 % (40-54); Mean Corp Hgb Conc 31.4 g/dL (32-36); Mean Corpuscular Volume 73.2 fL (80-94); Mean Platelet Vol. 9.1 fl (6.2-12.0); POSITIVE COUNT YES; POSITIVE DIFFERENTIAL YES; POSITIVE MORPHOLOGY YES; Platelet Count 204 K/mm3 (150-450); RBC Distribution Width CV 19.7 % (11.6-14.6); Red Blood Count 5.22 M/mm3 (4.6-6.2); White Blood Count 5.7 K/mm3 (4.4-11.0)
[2025-01-13 10:16] LABS: Differential Indicated MANUAL DIFF
[2025-01-13 10:24] LABS: International Normalized Ratio 1.6; Prothrombin Time (Protime)PT. 19.7 SECONDS (11.7-14.9)
--- NOTE | 2025-01-13 10:33 | PN.HOSP_ITS ---
Reason for Visit Reason for Visit: Diagnoses Infectious gastroenteritis and colitis, unspecified (01/10/25) Dehydration (01/10/25) Hypoxemia (01/10/25) Other malaise (01/10/25) Subjective Subjective Overall symptomatically same As confusion about time of the day, oriented to place and person Still having bowel movements Was able to sleep well despite initiation of methylprednisolone N.p.o. today Objective Data Objective Data Able to switch from aero flow to nasal cannula, is in negative fluid balance right now Vital Signs: Vital Signs Temp Pulse Resp BP Pulse Ox O2 Del Method O2 Flow Rate 98.2 F 89 21 H 105/58 L 100 Airvo 45 01/13/25 06:00 01/13/25 06:00 01/13/25 06:00 01/13/25 06:30 01/13/25 06:00 01/13/25 06:00 01/13/25 06:00 FiO2 45 01/13/25 06:00 Oxygen Flow Rate (L/min) 45 Oxygen Delivery Method Airvo Weight: 195 lb 1.745 oz Body Mass Index (BMI) 32.5 Intake & Output: Intake and Output for Last 24 Hours 01/11/25 01/12/25 01/13/25 23:59 23:59 23:59 Intake Total 340 / 340 2045.00 / 2416.11 685.93 / 685.93 Output Total 1450 / 1775 1125 / 1125 Balance 340 / 340 595.00 / 641.11 -439.07 / -439.07 Medical Nutrition Assessment Dietitian: Malnutrition Criteria Met Start: 01/11/25 14:42 Freq: Status: Active Protocol: Document 01/11/25 14:42 LO (Rec: 01/11/25 14:42 LO [id number]) Nutrition Malnutrition Evidence of Yes Malnutrition Exists Malnutrition (severe Chronic ): Evidenced By Suboptimal Energy Intake (Severe),Weight Loss (Severe) Clinical Problem Chronic Disease or Condition Related Malnutrition Etiology severe related to flu and metastatic cancer Signs/Symptoms as evidenced by 17lbs (8%) unintentional weight loss in 1 month and PO intakes <75% of estimated nutrition needs for 1 month Status Active Problem Recommendation Dietitian Continue liberalized Regular diet to optimize oral Recommendations/ intakes. Changes Will order 120ml EPHP chocolate 4x daily with medpass to provide supplemental energy if consumed. Lab / Micro Data Attestation: I reviewed the patient's lab results. 01/13/25 10:05 01/12/25 12:40 Labs: Laboratory Results - last 24 hr 01/12/25 12:40: WBC 8.3, RBC 5.08, Hgb 11.7 L, Hct 37.2 L, MCV 73.2 L, MCH 23.0 L, MCHC 31.5 L, RDW Std Deviation 51.6 H, RDW Coeff of Kailey 19.8 H, Plt Count 171, MPV 9.8, Immature Gran % (Auto) 2.800 H, Neut % (Auto) 72.6 H, Lymph % (Auto) 11.1 L, [place] % (Auto) 12.0 H, Eos % (Auto) 0.4, Baso % (Auto) 1.1 H, Absolute Neuts (auto) 6.0, Absolute Lymphs (auto) 0.92, Nucleated RBC % 0, Sodium 137, Potassium 3.5, Chloride 106, Carbon Dioxide 15.4 L, Anion Gap 16 H, BUN 23 H, Creatinine 1.97 H, Estim Creat Clear Calc 34.96 L, Est GFR (MDRD) Non- Af 36 L, BUN/Creatinine Ratio 11.6, Glucose 78, Calcium 7.9, Total Bilirubin 0.40, AST 56 H, ALT 17, Alkaline Phosphatase 57, Total Protein 4.5 L, Albumin 2.6 L, Globulin 1.9 L, Albumin/Globulin Ratio 1.3 01/13/25 10:05: WBC 5.7, RBC 5.22, Hgb 12.0 L, Hct 38.2 L, MCV 73.2 L, MCH 23.0 L, MCHC 31.4 L, RDW Std Deviation 51.0 H, RDW Coeff of Kailey 19.7 H, Plt Count 204, MPV 9.1, Neut % (Auto) Not Reportable, PT 19.7 H, INR 1.6 Micro: Microbiology 01/12/25 01:40 Sputum, Expectorated/Coughed Gram Stain - Final 01/10/25 14:46 Mucosa - Nose SARS-CoV-2, Influenza & RSV (PCR) - Final Influenzae A 01/11/25 02:20 Stool Clostridioides difficile (PCR) - Final Rhythm Strip Rhythm Strip: Sinus Tach Rate: 114 Ectopy: None Physical Exam Const alert Constitutional Narrative: Oriented to place and person HEENT head/scalp atraumatic Eyes PERRL and EOMs intact bilaterally Neck no lymphadenopathy Resp Resp Narrative: Bilateral infrascapular crackles present more on the left than right side Cardio regular rate and regular rhythm GI normal to inspection, nondistended, normoactive bowel sounds Extremity normal to inspection Neuro CN's II-XII intact bilaterally, moves all extremities and no focal motor deficits Psych affect normal Assessment & Plan Assessment/Plan (1) Hypoxemia: PLAN: Plan 69-year-old man with renal cell carcinoma with disseminated mets, prior lung cancer s/p segmental resection, COPD, heart failure with preserved ejection fraction is being managed for active diarrhea for last 3 weeks with suspicion for Keytruda associated colitis, and also for likely community-acquired pneumonia in the setting of immunosuppression. #Acute hypoxic respiratory failure #Concern for community-acquired pneumonia #Moderate aortic stenosis #Acute decompensated heart failure, elevated NT proBNP levels -With negative fluid balance, Airvo his respiratory symptoms have improved, presently on nasal cannula -No fever spikes after initiation of Zosyn and vancomycin yesterday -His volume status is tenuous and now is in hypotension possibly a combination of diarrhea, moderate AAS, hypovolemia -Hold off diuretics for now #Persistent diarrhea #?Keytruda associated colitis -Plan for sigmoidoscopy today -IV methylprednisone 60 mg twice daily for now -Infectious workup has been negative so far #Prior pulmonary embolism -Continue Eliquis # Acute on chronic debility ? PT/OT/case management consulted. - Suspect patient's weakness is primarily due to ongoing diarrhea along with respiratory failure with possible pneumonia. - Treatment as above. Currently lives at home with . Appreciate therapy recommendations. 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 Follows with oncology, last office visit on 12/21. CT chest abdomen pelvis on admit with stable cancer findings. -Hold monotherapy for now #Coronary artery disease -Coreg is held due to hypotension
[2025-01-13 10:34] LABS: ALB/GLOB Ratio 1.2 RATIO (0.9-2.4); AST(SGOT) 57 U/L (<=37); Alanine Aminotransfer ALT/SGPT 22 U/L (<=46); Albumin, Serum 2.8 g/dL (3.4-4.8); Alkaline Phosphatase 62 U/L (40-129); Anion Gap 23 (5-15); BUN 30 mg/dL (4-19); BUN/Creat Ratio 18.3 RATIO (10-20); Carbon Dioxide 11.5 mmol/L (21.0-32.0); Chloride 108 mmol/L (98-108); Creatinine, Serum 1.63 mg/dL (0.70-1.20); EST Glomerular Filtration Rate 45 (>60); Estimated Creatinine Clearance 42.51 ml/min (50-250); Globulin 2.3 g/dL (2.2-4.2); Glucose 139 mg/dL (70-99); Potassium 3.9 mmol/L (3.3-5.1); Protein, Total 5.1 g/dL (5.9-8.4); Sodium Level 142 mmol/L (133-145); Total Bilirubin 0.34 mg/dL (0.00-1.30)
[2025-01-13 10:46] LABS: Basophil 1 % (0-1); Lymphocyte 13 % (19-41); Monocyte 9 % (0-10); Neutrophil-Band 8 % (0-5); Neutrophil-Segmented 69 % (47-70); Total Cells Counted 100 (MANUAL DIFF)
[2025-01-13 10:50] LABS: Burr Cells 2+; Platelet Estimate ADEQUATE (ADEQ); Red Cell Morphology N CHROM NORMAL (NORM C&C)
[2025-01-13 10:51] LABS: Absolute Lymphocyte Count 0.74 X10^3/uL (0.83-4.51); Absolute Neutrophil Count 4.4 X10^3/uL (2.0-7.7); Pathologist Review May foll
[2025-01-13] MEDS: Ensure Plus High Protein 120 ML LIQUID PO (13:11)
[2025-01-13] MEDS: MethylPREDNISolone 125 MG/2 ML Vial 60 MG IV ×2 (13:11→21:09)
[2025-01-13] MEDS: Pantoprazole Sodium 20 MG Tablet PO (13:11)
[2025-01-13] MEDS: Oseltamivir Phosphate 30 MG Capsule PO ×2 (13:11→21:24)
[2025-01-13] MEDS: Ipratropium/Albuterol Sulfate 3 ML AMPUL.NEB INHALATION ×2 (13:17→19:40)
--- NOTE | 2025-01-13 15:13 | CASEMGMT ---
LUPE GAR into pt room to discuss dc planning. Pt sitting up in chair with and visitor at bedside. Pt does not want to discuss dc planning, he states its too early. Pt states to come back on Thursday. Pt states he may be interested in some C but will not determine now. LUPE GAR to f/u on Thursday per request.
[2025-01-13] MEDS: Vancomycin HCl 1,250 MG in 0.9% Normal Saline (250mL Bag) 250 ML 167 MG IV (15:48)
--- NOTE | 2025-01-13 20:09 | PCM.PN.BLA ---
Progress Note Patient was supposed to go for flexible sigmoidoscopy today. However he still remains on pressor therapy. He has been on steroid therapy for immunotherapy induced colitis leading to hypovolemia along with sepsis. Physical Exam Const alert Constitutional Narrative: Oriented to place and person HEENT head/scalp atraumatic Eyes PERRL and EOMs intact bilaterally Neck no lymphadenopathy Resp Resp Narrative: Bilateral infrascapular crackles present more on the left than right side Cardio regular rate and regular rhythm GI normal to inspection, nondistended, normoactive bowel sounds Extremity normal to inspection Neuro CN's II-XII intact bilaterally, moves all extremities and no focal motor deficits Psych affect normal Assessment & Plan Assessment/Plan (1) Hypoxemia: (2) Dehydration: (3) Declining functional status: PLAN: Plan Patient is a 69-year-old male who presented to [facility] ED on 01/10/2025 with persistent diarrhea with fevers/chills and a fall at home with weakness. 1. Acute hypoxic respiratory failure with concern for community-acquired pneumonia ? CT scan of the abdomen pelvis did show nodular densities in the right middle and right lower lobes concerning for atypical infection versus metastatic disease. Febrile to 103F in the ED. HE HAS BEEN AFEBRILE SINCE. COVID/flu/RSV pending. Sputum culture ordered. Blood cultures ordered. He is on vancomycin and Zosyn for now. Wean supplemental oxygen as able. 2. Persistent diarrhea with dehydration and mild nonanion gap metabolic acidosis ? Patient with worsening persistent diarrhea over the past 4 to 5 days. Bicarb 18 on 01/07 ED visit and down to 17 on this admission. Patient reports fairly poor p.o. intake over that time. Stool studies have been negative thus far. The plan is to perform flexible sigmoidoscopy versus colonoscopy to confirm immunotherapy induced colitis. Also different diagnosis is inflammatory bowel disease brought on by immunosuppression. Continue steroids as previously ordered. 3. Metastatic renal cell carcinoma s/p left nephrectomy and non-small cell lung cancer on immunotherapy ? Follows with oncology, last office visit on 12/21. Visit Charges Inpatient E&M: 66545 Subs Hosp L3
[2025-01-13] MEDS: APIXABAN 2.5 MG TABLET (WCH) PO (21:09)
[2025-01-13] MEDS: Atorvastatin Calcium 80 MG Tablet PO (21:09)
[2025-01-14] VITALS (36 sets, daily range): BP systolic 99–160; BP diastolic 35–109; PULSE 91–107; RESP 17–24; TEMP 36.6–37.7; O2SAT 91–100; BMI 32.1
[2025-01-14 04:03] LABS: Hematocrit 35.7 % (40-54); Hemoglobin 11.6 g/dL (13.0-16.5); Mean Corp Hgb Conc 32.5 g/dL (32-36); Mean Corpuscular Hgb 23.3 pg (27.0-32.0); Mean Corpuscular Volume 71.8 fL (80-94); Mean Platelet Vol. 9.3 fl (6.2-12.0); POSITIVE COUNT YES; POSITIVE DIFFERENTIAL YES; POSITIVE MORPHOLOGY YES; Platelet Count 194 K/mm3 (150-450); RBC Distribution Width CV 19.6 % (11.6-14.6); RBC Distribution Width SD 50.5 fl (35.1-43.9); Red Blood Count 4.97 M/mm3 (4.6-6.2)
[2025-01-14 04:42] LABS: Anion Gap 18 (5-15); BUN 28 mg/dL (4-19); BUN/Creat Ratio 21.5 RATIO (10-20); Chloride 112 mmol/L (98-108); Creatinine, Serum 1.28 mg/dL (0.70-1.20); EST Glomerular Filtration Rate 60 (>60); Estimated Creatinine Clearance 53.86 ml/min (50-250); Glucose 171 mg/dL (70-99); Potassium 3.4 mmol/L (3.3-5.1); Sodium Level 145 mmol/L (133-145)
[2025-01-14 04:45] LABS: Differential Indicated MANUAL DIFF
[2025-01-14] MEDS: 0.9% Saline Lock 10 ML Syringe IV (05:04)
[2025-01-14] MEDS: Menthol/Lanolin/Calamine/Znox 113 GM Tube 1 APPLIC TOPICAL ×2 (05:04→21:36)
[2025-01-14] MEDS: Piperacil/Tazobactam 3.375 GM in 0.9% Normal Saline (50mL MB+) 50 ML IV ×3 (05:04→21:37)
[2025-01-14 05:10] LABS: Lymphocyte 12 % (19-41); Monocyte 4 % (0-10); Neutrophil-Band 44 % (0-5); Neutrophil-Segmented 40 % (47-70); Total Cells Counted 100 (MANUAL DIFF)
[2025-01-14 05:11] LABS: Absolute Neutrophil Count 4.2 X10^3/uL (2.0-7.7); Differential Comment SCANNED; Pathologist Review May foll; Toxic Granulation 2+
[2025-01-14] MEDS: Ipratropium/Albuterol Sulfate 3 ML AMPUL.NEB INHALATION ×2 (06:48→19:10)
--- NOTE | 2025-01-14 07:09 | PCM.PN.HOSP ---
Reason for Visit Reason for Visit: Diagnoses Infectious gastroenteritis and colitis, unspecified (01/10/25) Dehydration (01/10/25) Hypoxemia (01/10/25) Other malaise (01/10/25) Shock, unspecified (01/10/25) Subjective Subjective 69-year-old man with renal cell carcinoma with disseminated mets, prior lung cancer s/p segmental resection, COPD, heart failure with preserved ejection fraction is being managed for active diarrhea for last 3 weeks with suspicion for Keytruda associated colitis, and also for likely community-acquired pneumonia in the setting of immunosuppression. Objective Data Objective Data Vital Signs: Vital Signs Temp Pulse Resp BP Pulse Ox O2 Del Method O2 Flow Rate 98.2 F 96 18 136/89 H 100 Nasal Cannula 2 01/14/25 06:00 01/14/25 06:00 01/14/25 06:00 01/14/25 06:45 01/14/25 06:00 01/14/25 06:00 01/14/25 06:00 FiO2 48 01/13/25 08:00 Oxygen Flow Rate (L/min) 2 Oxygen Delivery Method Nasal Cannula Weight: 87.6 kg Body Mass Index (BMI) 32.1 Intake & Output: Intake and Output for Last 24 Hours 01/12/25 01/13/25 01/14/25 23:59 23:59 23:59 Intake Total 2045.00 / 2416.11 1370.28 / 1371.68 78.17 / 78.17 Output Total 1450 / 1775 2975 / 2975 300 / 300 Balance 595.00 / 641.11 -1604.72 / -1603.32 -221.83 / -221.83 Medical Nutrition Assessment Dietitian: Malnutrition Criteria Met Start: 01/11/25 14:42 Freq: Status: Active Protocol: Document 01/11/25 14:42 LO (Rec: 01/11/25 14:42 LO [id number]) Nutrition Malnutrition Evidence of Yes Malnutrition Exists Malnutrition (severe Chronic ): Evidenced By Suboptimal Energy Intake (Severe),Weight Loss (Severe) Clinical Problem Chronic Disease or Condition Related Malnutrition Etiology severe related to flu and metastatic cancer Signs/Symptoms as evidenced by 17lbs (8%) unintentional weight loss in 1 month and PO intakes <75% of estimated nutrition needs for 1 month Status Active Problem Recommendation Dietitian Continue liberalized Regular diet to optimize oral Recommendations/ intakes. Changes Will order 120ml EPHP chocolate 4x daily with medpass to provide supplemental energy if consumed. Lab / Micro Data 01/14/25 03:53 01/14/25 03:53 Labs: Laboratory Results - last 24 hr 01/13/25 10:05: WBC 5.7, RBC 5.22, Hgb 12.0 L, Hct 38.2 L, MCV 73.2 L, MCH 23.0 L, MCHC 31.4 L, RDW Std Deviation 51.0 H, RDW Coeff of Kailey 19.7 H, Plt Count 204, MPV 9.1, Neut % (Auto) Not Reportable, Absolute Neuts (auto) 4.4, Absolute Lymphs (auto) 0.74 L, Total Counted 100, Neutrophils % (Manual) 69, Band Neutrophils % 8 H, Lymphocytes % (Manual) 13 L, Monocytes % (Manual) 9, Basophils % (Manual) 1, Diff Path Review March, Platelet Estimate ADEQUATE, RBC Morphology N CHROM, [place] Cells 2+, PT 19.7 H, INR 1.6, Sodium 142, Potassium 3.9, Chloride 108, Carbon Dioxide 11.5 L, Anion Gap 23 H, BUN 30 H, Creatinine 1.63 H, Estim Creat Clear Calc 42.51 L, Est GFR (MDRD) Non-Af 45 L, BUN/Creatinine Ratio 18.3, Glucose 139 H, Calcium 8.0, Total Bilirubin 0.34, AST 57 H, ALT 22, Alkaline Phosphatase 62, Total Protein 5.1 L, Albumin 2.8 L, Globulin 2.3, Albumin/Globulin Ratio 1.2 01/14/25 03:53: WBC 5.0, RBC 4.97, Hgb 11.6 L, Hct 35.7 L, MCV 71.8 L, MCH 23.3 L, MCHC 32.5, RDW Std Deviation 50.5 H, RDW Coeff of Kailey 19.6 H, Plt Count 194, MPV 9.3, Neut % (Auto) Not Reportable, Absolute Neuts (auto) 4.2, Absolute Lymphs (auto) 0.60 L, Total Counted 100, Neutrophils % (Manual) 40 L, Band Neutrophils % 44 H, Lymphocytes % (Manual) 12 L, Monocytes % (Manual) 4, Differential Comment SCANNED, Diff Path Review March foll, Toxic Granulation 2+, Sodium 145, Potassium 3.4, Chloride 112 H, Carbon Dioxide 15.0 L, Anion Gap 18 H, BUN 28 H, Creatinine 1.28 H, Estim Creat Clear Calc 53.86, Est GFR (MDRD) Non-Af 60, BUN/Creatinine Ratio 21.5 H, Glucose 171 H, Calcium 8.0 Micro: Microbiology 01/12/25 01:40 Sputum, Expectorated/Coughed Gram Stain - Final 01/12/25 01:40 Sputum, Expectorated/Coughed Respiratory Culture - Preliminary GNR 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 SKIN: No Rash PSYCH; Flat affect Assessment & Plan Assessment/Plan (1) Hypoxemia: PLAN: Plan 69-year-old man with renal cell carcinoma with disseminated mets, prior lung cancer s/p segmental resection, COPD, heart failure with preserved ejection fraction is being managed for active diarrhea for last 3 weeks with suspicion for Keytruda associated colitis, and also for likely community-acquired pneumonia in the setting of immunosuppression. 1. Acute hypoxic respiratory failure ? Multifactorial including COPD with acute exacerbation, acute influenza A infection as well as superimposed secondary bacterial pneumonia patient was placed on supplemental oxygen titrated to keep saturation greater than 90 3. Septic shock secondary to community-acquired pneumonia and Keytruda induced colitis ? Treatment consisted of treatment of the underlying clinical etiology as well as pressors 3. Acute influenza A infection ? Patient treated with Tamiflu 4. Pneumonia with suspected multidrug-resistant organisms ? Given patient immunosuppressed state managed with broad-spectrum antibiotic therapy cultures have remained negative to date 5. Keytruda induced colitis ? Patient managed with methylprednisolone consult placed to GI plan is for patient to undergo sigmoidoscopy when off pressors 6. COPD with acute exacerbation ? Patient started on bronchodilator treatment, systemic steroid as well as antibiotic therapy. Patient placed on oxygen titrated to keep saturation greater than 90. 7. Metastatic renal cell carcinoma s/p left nephrectomy Patient remains on immunotherapy has a persistent right-sided mass 8. 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 Follows with oncology, last office visit on 12/21. CT chest abdomen pelvis on admit with stable cancer findings. 9. Previous VTE ? Patient is on apixaban 9. Chronic congestive heart failure with preserved ejection fraction ? Remains compensated 10. Dyslipidemia ?Patient is on statin therapy, continued at home dose 11. Anemia ? Secondary to chronic disorder monitoring H&H and transfuse if patient becomes symptomatic or hemoglobin falls below 7 12. Hypokalemia -Corrected per protocol 13. Acute kidney injury ? Patient creatinine on 01/07/2025 was 1.14 creatinine worsened and peaked at 1.97 managed with IV fluids trending down we will continue with monitoring with daily BMP 14. Coronary artery disease ? With previous bare-metal stenting of the left posterior lateral branch and MARVIN to left circumflex artery. Patient remains on guideline directed medical therapy 15. DVT prophylaxis ? On apixaban Time spent in the patient's overall evaluation,decision-making process, review of diagnostic data, adjustment of management, discussion with other providers, nursing nursing and ancillary staff involved in patient's care documentation, 52 Minutes Charges/Coding Visit Charges Inpatient E&M: 47177 [facility] Hosp L3
[2025-01-14] MEDS: APIXABAN 2.5 MG TABLET (WCH) PO ×2 (11:46→21:37)
[2025-01-14] MEDS: Pantoprazole Sodium 20 MG Tablet PO (11:51)
[2025-01-14] MEDS: MethylPREDNISolone 125 MG/2 ML Vial 60 MG IV ×2 (11:51→21:38)
--- NOTE | 2025-01-14 13:13 | PCM.PN.TICU ---
Objective Data Objective Data Vital Signs: Vital Signs Last response Temperature 36.8 C 01/14/25 06:00 Temperature Source Core 01/14/25 06:00 Pulse Rate 102 H 01/14/25 09:21 Pulse Strength Weak (1+) 01/13/25 21:40 Respiratory Rate 24 H 01/14/25 09:21 Respiratory Effort Normal, Non-Labored 01/14/25 03:50 Respiratory Depth Normal 01/14/25 03:50 Respiratory Pattern Tachypnea 01/14/25 09:21 Blood Pressure 136/89 H 01/14/25 06:45 Blood Pressure Mean 104 01/14/25 06:45 Blood Pressure Source Monitor 01/14/25 06:45 Blood Pressure Position Semi-Fowlers 01/14/25 06:45 Blood Pressure Location Right Arm 01/14/25 06:45 Pulse Ox 93 01/14/25 12:57 Oxygen Delivery Method Nasal Cannula 01/14/25 09:21 Oxygen Flow Rate (L/min) 2 01/14/25 09:21 Fraction of Inspired Oxygen (FIO2) 48 01/13/25 08:00 I&O: I&O Last 24 Hours 01/13/25 01/14/25 01/14/25 23:59 11:59 23:59 Intake Total 592.05 / 1371.68 78.17 / 78.17 Output Total 1850 / 2975 300 / 300 Balance -1257.95 / -1603.32 -221.83 / -221.83 I&O: Total Stay 01/10/25 09:58 thru 01/14/25 06:45 Intake Total 6623.45 Output Total 4725 Balance 1898.45 Current Meds Ordered / Administered: Current meds ordered / Administered Generic Name Dose Route Start Last Admin Trade Name Freq PRN Reason Stop Dose Admin Acetaminophen 650 mg 01/10/25 16:40 01/12/25 12:49 Acetaminophen 325 Mg Tablet PO 650 mg Q6H PRN PRN Administration Pain 1-10 Or Fever>100.7 Acetaminophen 650 mg 01/12/25 13:15 Acetaminophen 325 Mg Tablet PO Q4H PRN PRN HEADACHE/FEVER (T>100F) Al Hydroxide/Mg Hydroxide 15 ml 01/10/25 20:13 01/13/25 01:17 Mag Hydrox/Al Hydrox/Simeth 30 Ml Udc PO 15 ml Q4H PRN PRN Administration DYSPEPSIA/INDIGESTION Albuterol/Ipratropium 3 ml 01/10/25 16:40 01/11/25 22:52 Ipratropium/Albuterol Sulfate 3 Ml Ampul.Neb INHALATION 3 ml Q4H PRN Administration shortness of breath or wheezing Albuterol/Ipratropium 3 ml 01/13/25 11:15 01/14/25 06:48 Ipratropium/Albuterol Sulfate 3 Ml Ampul.Neb INHALATION 3 ml Q6HWA.RT DAVE Administration Apixaban 2.5 mg 01/11/25 10:00 01/14/25 11:46 Apixaban 2.5 Mg Tablet ([facility]) PO 2.5 mg BID DAVE Administration Atorvastatin Calcium 80 mg 01/10/25 22:00 01/13/25 21:09 Atorvastatin Calcium 80 Mg Tablet PO 80 mg QHS DAVE Administration Calamine/Phenol 1 applic 01/12/25 06:00 01/14/25 05:04 Menthol/Lanolin/Calamine/Znox 113 Gm Tube TOPICAL 1 u TID DAVE Administration Protocol Piperacillin Sod/Tazobactam 50 mls @ 12.5 mls/hr 01/12/25 14:00 01/14/25 05:04 Sod 3.375 gm/ Sodium Chloride IV 12.5 mls/hr Q8 DAVE Administration Vancomycin IV-PHARMACY TO DOSE 500 mls @ 250 mls/hr 01/12/25 13:13 1 each/ Sodium Chloride IV PRN PRN Rx to Dose Protocol Vancomycin HCl 1,250 mg/ 275 mls @ 167 mls/hr 01/13/25 15:00 01/13/25 20:58 Sodium Chloride IV Infused Q24H DAVE Infusion Norepinephrine Bitartrate 8 mg 250 mls @ 9.375 mls/hr 01/12/25 16:10 01/14/25 06:45 / Sodium Chloride CONT INF 0 mcg/min .[id number] DAVE 0 mls/hr Titration Protocol 5 MCG/MIN Loperamide HCl 2 mg 01/12/25 04:01 01/12/25 13:41 Loperamide 2 Mg Capsule PO 2 mg Q2H PRN PRN Administration DI Melatonin 3 mg 01/10/25 16:40 Melatonin 3 Mg Tablet PO QHS PRN PRN INSOMNIA Methylprednisolone 60 mg 01/13/25 10:45 01/14/25 11:51 Methylprednisolone 125 Mg/2 Ml Vial IV 60 mg Q12 DAVE Administration Nutritional Formula (Lactose Free) 120 ml 01/11/25 18:00 01/14/25 11:47 Ensure Plus High Protein 120 Ml Liquid PO Not Given 4X/DAY [facility] Ondansetron HCl 4 mg 01/10/25 16:40 Ondansetron 4 Mg/2 Ml Vial IV Q8H PRN PRN NAUSEA/VOMITING Oseltamivir Phosphate 30 mg 01/13/25 11:00 01/13/25 21:24 Oseltamivir Phosphate 30 Mg Capsule PO 01/15/25 22:01 30 mg BID DAVE Administration Pantoprazole Sodium 20 mg 01/10/25 20:15 01/14/25 11:51 Pantoprazole Sodium 20 Mg Tablet PO 20 mg DAILY DAVE Administration Sodium Chloride 10 - 40 ml 01/10/25 16:51 01/14/25 05:04 0.9% Saline Lock 10 Ml Syringe IV 10 ml UD PRN Administration Port-a-Cath (VAD)/R Port Flush Sodium Chloride 10 - 40 ml 01/10/25 16:51 0.9 % Nacl (Sterile) Posiflush 10 Ml IV UD PRN Port access or dressing change Sodium Chloride 10 - 40 ml 01/10/25 16:51 0.9% Saline Lock 10 Ml Syringe IV UD PRN SALINE FLUSH Vancomycin Protocol 1 lab 01/14/25 12:30 Vancomycin Trough/Random Due MC 01/14/25 16:30 DAILY [facility] Medical Records Data Medical Nutrition Assessment Dietitian: Malnutrition Criteria Met Start: 01/11/25 14:42 Freq: Status: Active Protocol: Document 01/11/25 14:42 LO (Rec: 01/11/25 14:42 LO [id number]) Nutrition Malnutrition Evidence of Yes Malnutrition Exists Malnutrition (severe Chronic ): Evidenced By Suboptimal Energy Intake (Severe),Weight Loss (Severe) Clinical Problem Chronic Disease or Condition Related Malnutrition Etiology severe related to flu and metastatic cancer Signs/Symptoms as evidenced by 17lbs (8%) unintentional weight loss in 1 month and PO intakes <75% of estimated nutrition needs for 1 month Status Active Problem Recommendation Dietitian Continue liberalized Regular diet to optimize oral Recommendations/ intakes. Changes Will order 120ml EPHP chocolate 4x daily with medpass to provide supplemental energy if consumed. Lab / Micro Data 01/14/25 03:53 01/14/25 03:53 Labs: Laboratory Results - last 24 hr 01/14/25 03:53: WBC 5.0, RBC 4.97, Hgb 11.6 L, Hct 35.7 L, MCV 71.8 L, MCH 23.3 L, MCHC 32.5, RDW Std Deviation 50.5 H, RDW Coeff of Kailey 19.6 H, Plt Count 194, MPV 9.3, Neut % (Auto) Not Reportable, Absolute Neuts (auto) 4.2, Absolute Lymphs (auto) 0.60 L, Total Counted 100, Neutrophils % (Manual) 40 L, Band Neutrophils % 44 H, Lymphocytes % (Manual) 12 L, Monocytes % (Manual) 4, Differential Comment SCANNED, Diff Path Review March foll, Toxic Granulation 2+, Sodium 145, Potassium 3.4, Chloride 112 H, Carbon Dioxide 15.0 L, Anion Gap 18 H, BUN 28 H, Creatinine 1.28 H, Estim Creat Clear Calc 53.86, Est GFR (MDRD) Non-Af 60, BUN/Creatinine Ratio 21.5 H, Glucose 171 H, Calcium 8.0 Micro: Microbiology 01/12/25 01:40 Sputum, Expectorated/Coughed Gram Stain - Final 01/12/25 01:40 Sputum, Expectorated/Coughed Respiratory Culture - Preliminary GNR 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 Assessment and plan: Critical Care Time: The entirety of this encounter was done via Telemedicine Subjective Subjective Pt seen and examined. Stable on 2L NC. Off pressors since 0600. No new complaints. PE: General: Well developed, chronically ill appearing HEENT: anicteric Sclera; nl nose; supple neck, no masses Cardiovascular: Regular Rate and Rhythm; No murmurs, rubs, gallops; no displaced PMI Respiratory: diminished; no crackles, wheezes, or rhonchi Abdominal: Non-tender; Non distended; hypoBS x 4; No Hepatosplenomegaly Extremities: Warm, well perfused; No clubbing, cyanosis; capillary refill < 2 sec Neurological: A&Ox3; no gross motor deficits A/P: #Shock, unspecified- resolved #Acute respiratory failure- resolved #Flu A, ?2* bacterial infection #Diarrhea #History of metastatic renal cell carcinoma status post nephrectomy #non-small cell carcinoma of the lung #coronary artery disease #History of pulmonary embolism -Cont titrating O2 to keep sats ~90-92% -Cont NEpi --> weaned off at 0600 -Cont emp IV Abx -Complete Tamiflu course -Cont nebs; steroids -GI on board; F/U recommendations PO diet Eliquis Guarded prognosis Can downgrade from my stand point if vitals remain stable off pressors. Will sign off but available as needed. The entirety of this encounter was completed via telemedicine.
[2025-01-14] MEDS: Vancomycin Trough/Random Due 1 LAB MC (14:16)
[2025-01-14] MEDS: Oseltamivir Phosphate 30 MG Capsule PO ×2 (15:00→21:36)
[2025-01-14 15:26] LABS: Vancomycin, Trough Level 9.3 ug/mL (5.0-15.0)
--- NOTE | 2025-01-14 15:48 | PCM.RX.CS ---
Consult Antibiotic Management Pharmacy has been consulted to manage selected antibiotic: Vancomycin Type of Intervention Type of Consult: Follow-up Prior Doses of Antibiotics Prior Doses of Antibiotics Received/Current Regimen: currently on 1250mg IV q24h Labs Labs: Sodium 145 mmol/L (133-145) 01/14/25 03:53 Potassium 3.4 mmol/L (3.3-5.1) 01/14/25 03:53 Chloride 112 mmol/L (98-108) H 01/14/25 03:53 Carbon Dioxide 15.0 mmol/L (21.0-32.0) L 01/14/25 03:53 Anion Gap 18 (5-15) H 01/14/25 03:53 BUN 28 mg/dL (4-19) H 01/14/25 03:53 Creatinine 1.28 mg/dL (0.70-1.20) H 01/14/25 03:53 Est GFR (MDRD) Non-Af 60 (>60) 01/14/25 03:53 BUN/Creatinine Ratio 21.5 RATIO (10-20) H 01/14/25 03:53 Glucose 171 mg/dL (70-99) H 01/14/25 03:53 Vancomycin Trough 9.3 ug/mL (5.0-15.0) 01/14/25 14:35 Microbiology Microbiology: Microbiology 01/12/25 01:40 Sputum, Expectorated/Coughed Gram Stain - Final 01/12/25 01:40 Sputum, Expectorated/Coughed Respiratory Culture - Preliminary GNR 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 This is significantly below goal range so will change to new dose of 1000mg q12h. Check a trough before the 4th dose. Of note, the patient's SCr improved today to 1.28 from 1.63 yesterday and 1.97 two days ago. Pharmacy Service will continue to monitor and adjust dosing as required. Follow-Up Labs Follow-Up Labs: Trough: Vancomycin Date/Time Labs Ordered Labs to be done on [date and time ordered]: 01/16/25 03:30
[2025-01-14] MEDS: Mag Hydrox/Al Hydrox/Simeth 30 ML UDC 15 ML PO (16:00)
[2025-01-14] MEDS: Vancomycin IV 1,000 MG/200 ML BAG 200 MG IV (16:00)
[2025-01-14] MEDS: Ensure Plus High Protein 120 ML LIQUID PO (17:42)
[2025-01-14] MEDS: Acetaminophen 325 MG Tablet 650 MG PO (21:36)
[2025-01-14] MEDS: Atorvastatin Calcium 80 MG Tablet PO (21:37)
[2025-01-14] MEDS: MELATONIN 3 MG TABLET PO (21:37)
[2025-01-15] VITALS (12 sets, daily range): BP systolic 121–160; BP diastolic 70–90; PULSE 86–901; RESP 16–26; TEMP 36.7–36.9; O2SAT 88–95; BMI 30.2
[2025-01-15] MEDS: Vancomycin IV 1,000 MG/200 ML BAG 200 MG IV ×2 (03:10→17:39)
[2025-01-15] MEDS: Haloperidol Lactate 5 MG/ML Vial 1 MG IM (03:51)
--- NOTE | 2025-01-15 03:54 | NURSING ---
From 0100 to 3:40Pt very restless tonighit and more and more confused. Pt setting off bed alarm every 5-10 min. This RN has sat at pt bedside to keep and eye on him to keep him safe. Pt reoriented many times. Pt still thinks he needs to go out with his dad and is trying to get out of bed. Pt determined to get out of bed unassisted. Pt now combative, hitting staff and very angry. [id number] Dr sheehan called and notified of pt behavior. Haldol ordered and given. This RN continues to sit at bedside for pt safety.
[2025-01-15 05:09] LABS: Hematocrit 32.2 % (40-54); Hemoglobin 10.5 g/dL (13.0-16.5); Mean Corp Hgb Conc 32.6 g/dL (32-36); Mean Corpuscular Hgb 23.2 pg (27.0-32.0); Mean Corpuscular Volume 71.1 fL (80-94); POSITIVE COUNT YES; POSITIVE DIFFERENTIAL YES; POSITIVE MORPHOLOGY YES; Platelet Count 123 K/mm3 (150-450); RBC Distribution Width CV 19.4 % (11.6-14.6); RBC Distribution Width SD 49.8 fl (35.1-43.9); Red Blood Count 4.53 M/mm3 (4.6-6.2); White Blood Count 4.1 K/mm3 (4.4-11.0)
[2025-01-15 05:17] LABS: Differential Indicated MANUAL DIFF
[2025-01-15] MEDS: Menthol/Lanolin/Calamine/Znox 113 GM Tube 1 APPLIC TOPICAL ×3 (05:35→21:51)
[2025-01-15] MEDS: Piperacil/Tazobactam 3.375 GM in 0.9% Normal Saline (50mL MB+) 50 ML IV ×3 (05:35→21:52)
--- NOTE | 2025-01-15 05:47 | NURSING ---
Pt setting alarm off on bed again. Trying to get out of bed. PT assisted back to bed and pulled up. Attempt to reorient unsuccessful. Bed alarm applied.
[2025-01-15 05:56] LABS: AST(SGOT) 54 U/L (<=37); Alanine Aminotransfer ALT/SGPT 27 U/L (<=46); Alkaline Phosphatase 84 U/L (40-129); Anion Gap 13 (5-15); BUN 19 mg/dL (4-19); BUN/Creat Ratio 19.7 RATIO (10-20); Bilirubin, Direct 0.27 mg/dL (0.00-0.30); Calcium,Total 7.6 mg/dL (7.6-11.0); Carbon Dioxide 18.7 mmol/L (21.0-32.0); Chloride 114 mmol/L (98-108); Creatinine, Serum 0.95 mg/dL (0.70-1.20); EST Glomerular Filtration Rate 86 (>60); Estimated Creatinine Clearance 70.47 ml/min (50-250); Glucose 238 mg/dL (70-99); Magnesium 2.2 mg/dL (1.5-2.2); Phosphorus 1.3 mg/dL (2.7-4.5); Potassium 2.8 mmol/L (3.3-5.1); Sodium Level 146 mmol/L (133-145); Total Bilirubin 0.38 mg/dL (0.00-1.30)
--- NOTE | 2025-01-15 07:21 | PCM.PN.HOSP ---
Reason for Visit Reason for Visit: Diagnoses Infectious gastroenteritis and colitis, unspecified (01/10/25) Dehydration (01/10/25) Hypoxemia (01/10/25) Other malaise (01/10/25) Shock, unspecified (01/10/25) Subjective Subjective Patient seen has been weaned off Levophed. Blood pressure remained stable. Patient however has significant electrolyte abnormalities including hypophosphatemia as well as hypokalemia. Per nursing staff patient has been experiencing episodes of agitation. Objective Data Objective Data Vital Signs: Vital Signs Temp Pulse Resp BP Pulse Ox O2 Del Method O2 Flow Rate 98.1 F 901 H 19 H 160/81 H 88 Room Air 2 01/15/25 03:00 01/15/25 05:00 01/15/25 05:00 01/15/25 05:00 01/15/25 05:00 01/15/25 05:00 01/14/25 12:00 FiO2 48 01/13/25 08:00 Oxygen Flow Rate (L/min) 2 Oxygen Delivery Method Room Air Weight: 82.4 kg Body Mass Index (BMI) 30.2 Intake & Output: Intake and Output for Last 24 Hours 01/13/25 01/14/25 01/16/25 23:59 23:59 00:59 Intake Total 1370.28 / 1371.68 1058.17 / 1058.17 750 / 750 Output Total 2975 / 2975 1050 / 1050 550 / 550 Balance -1604.72 / -1603.32 8.17 / 8.17 200 / 200 Medical Nutrition Assessment Dietitian: Malnutrition Criteria Met Start: 01/11/25 14:42 Freq: Status: Active Protocol: Document 01/14/25 14:49 RMA (Rec: 01/14/25 14:49 RMA [id number]) Nutrition Malnutrition Evidence of Yes Malnutrition Exists Malnutrition (severe Chronic ): Evidenced By Suboptimal Energy Intake (Severe),Weight Loss (Severe) Clinical Problem Chronic Disease or Condition Related Malnutrition Etiology severe related to flu and metastatic cancer; altered GI function/diarrhea Signs/Symptoms as evidenced by 17lbs (8%) unintentional weight loss in 1 month and PO intakes <75% of estimated nutrition needs for 1 month; NPO/clear and full liquids x 3-4 days Status Active Problem Recommendation Dietitian Recommend advance diet as tolerated to Transitional Recommendations/ with goal of regular diet as able. Changes Will order 120ml chocolate ensure plus HP 4x daily with medpass to provide supplemental energy if consumed. Additional ONS as diet advanced to solid food. Lab / Micro Data 01/15/25 05:00 01/15/25 05:00 Labs: Laboratory Results - last 24 hr 01/14/25 14:35: Vancomycin Trough 9.3 01/15/25 05:00: WBC 4.1 L, RBC 4.53 L, Hgb 10.5 L, Hct 32.2 L, MCV 71.1 L, MCH 23.2 L, MCHC 32.6, RDW Std Deviation 49.8 H, RDW Coeff of Kailey 19.4 H, Plt Count 123 L, MPV 9.0, Neut % (Auto) Not Reportable, Sodium 146 H, Potassium 2.8 L, Chloride 114 H, Carbon Dioxide 18.7 L, Anion Gap 13, BUN 19, Creatinine 0.95, Estim Creat Clear Calc 70.47, Est GFR (MDRD) Non-Af 86, BUN/Creatinine Ratio 19.7, Glucose 238 H, Calcium 7.6, Phosphorus 1.3 L*, Magnesium 2.2, Total Bilirubin 0.38, Direct Bilirubin 0.27, AST 54 H, ALT 27, Alkaline Phosphatase 84, Total Protein 5.0 L, Albumin 3.0 L, Globulin 2.0 L Micro: Microbiology 01/12/25 14:35 Blood Culture (Wb) - Left Forearm Blood Culture - Preliminary No growth in 48 hours. 01/12/25 14:35 Blood Culture (Wb) - Arm Left Blood Culture - Preliminary No growth in 48 hours. 01/12/25 01:40 Sputum, Expectorated/Coughed Gram Stain - Final 01/12/25 01:40 Sputum, Expectorated/Coughed Respiratory Culture - Preliminary GNR lactose dental professional Gram negative morgan 01/10/25 14:46 Mucosa - Nose SARS-CoV-2, Influenza & RSV (PCR) - Final Influenzae A 01/11/25 02:20 Stool Clostridioides difficile (PCR) - Final Rhythm Strip Rhythm Strip: Sinus Tach Rate: 114 Ectopy: None Physical Exam Narrative GENERAL: cooperative HEENT: Atraumatic; normocephalic EYES; Anicteric, Normal Conjunctiva NECK; supple, normal thyroid, RESPIRATORY: Diminished to auscultation CARDIOVASCULAR: Regular S1 S2, GI: soft, normoactive bowel sounds, : No Renal angle tenderness; EXTREMITIES: No edema, no clubbing, MUSCULOSKELETAL: no muscle wasting NEURO: Awake; no lateralizing signs. SKIN: No Rash PSYCH; Flat affect Assessment & Plan Assessment/Plan (1) Hypoxemia: PLAN: Plan 69-year-old man with renal cell carcinoma with disseminated mets, prior lung cancer s/p segmental resection, COPD, heart failure with preserved ejection fraction is being managed for active diarrhea for last 3 weeks with suspicion for Keytruda associated colitis, and also for likely community-acquired pneumonia in the setting of immunosuppression. 1. Acute hypoxic respiratory failure ? Multifactorial including COPD with acute exacerbation, acute influenza A infection as well as superimposed secondary bacterial pneumonia patient was placed on supplemental oxygen titrated to keep saturation greater than 90 ? 01/15/2025; currently on room air saturating 88% 3. Septic shock secondary to community-acquired pneumonia and Keytruda induced colitis ? Treatment consisted of treatment of the underlying clinical etiology as well as pressors ? 01/15/2025; patient has been weaned off Levophed 3. Acute influenza A infection ? Patient treated with Tamiflu 4. Pneumonia with suspected multidrug-resistant organisms ? Given patient immunosuppressed state managed with broad-spectrum antibiotic therapy cultures have remained negative to date 5. Keytruda induced colitis ? Patient managed with methylprednisolone consult placed to GI plan is for patient to undergo sigmoidoscopy when off pressors ? 01/15/2025; patient has a fecal management system and continues to experience several bouts of loose bowel movement 6. COPD with acute exacerbation ? Patient started on bronchodilator treatment, systemic steroid as well as antibiotic therapy. Patient placed on oxygen titrated to keep saturation greater than 90. 7. Metastatic renal cell carcinoma s/p left nephrectomy Patient remains on immunotherapy has a persistent right-sided mass 8. 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 Follows with oncology, last office visit on 12/21. CT chest abdomen pelvis on admit with stable cancer findings. 9. Previous VTE ? Patient is on apixaban 9. Chronic congestive heart failure with preserved ejection fraction ? Remains compensated 10. Dyslipidemia ?Patient is on statin therapy, continued at home dose 11. Anemia ? Secondary to chronic disorder monitoring H&H and transfuse if patient becomes symptomatic or hemoglobin falls below 7 12. Hypokalemia -Corrected per protocol ? 01/15/2025; potassium levels remain low 13. Acute kidney injury ? Patient creatinine on 01/07/2025 was 1.14 creatinine worsened and peaked at 1.97 managed with IV fluids trending down we will continue with monitoring with daily BMP 14. Coronary artery disease ? With previous bare-metal stenting of the left posterior lateral branch and MARVIN to left circumflex artery. Patient remains on guideline directed medical therapy 15. DVT prophylaxis ? On apixaban 16. Hypophosphatemia ? Corrected per protocol 17. Delirium ? Suspected to be secondary to prolonged stay in the ICU, patient started on Seroquel 25 mg twice daily Time spent in the patient's overall evaluation,decision-making process, review of diagnostic data, adjustment of management, discussion with other providers, nursing nursing and ancillary staff involved in patient's care documentation, 50 Minutes Charges/Coding Visit Charges Inpatient E&M: [id number] [place] [id number]
[2025-01-15 07:29] LABS: Lymphocyte 13 % (19-41); Metamyelocyte 5 % (0-1); Myelocyte 1 % (0-0); Neutrophil-Band 2 % (0-5); Neutrophil-Segmented 79 % (47-70); Total Cells Counted 100 (MANUAL DIFF)
[2025-01-15 07:30] LABS: Absolute Neutrophil Count 3.3 X10^3/uL (2.0-7.7); Platelet Estimate ADEQUATE (ADEQ); Red Cell Morphology NORM C+C NORMAL (NORM C&C)
[2025-01-15 07:31] LABS: Absolute Lymphocyte Count 0.52 X10^3/uL (0.83-4.51); Pathologist Review May foll
[2025-01-15] MEDS: Potassium Chloride 10mEq/100mL 10 MEQ/100 ML IV.SOLN. 100 MEQ IV BOLUS ×4 (08:16→12:58)
[2025-01-15] MEDS: Loperamide 2 MG Capsule PO (08:29)
[2025-01-15] MEDS: APIXABAN 2.5 MG TABLET (WCH) PO ×2 (08:30→21:51)
[2025-01-15] MEDS: Oseltamivir Phosphate 30 MG Capsule PO ×2 (08:30→21:50)
[2025-01-15] MEDS: Pantoprazole Sodium 20 MG Tablet PO (08:30)
[2025-01-15] MEDS: QUEtiapine 25 MG Tablet PO ×2 (09:16→21:51)
[2025-01-15] MEDS: Ensure Plus High Protein 120 ML LIQUID PO ×2 (09:18→14:46)
[2025-01-15] MEDS: Potassium Phosphate 40 MM in 0.9% Normal Saline (500mL Bag) 500 ML 62.5 MM IV (09:42)
[2025-01-15] MEDS: MethylPREDNISolone 125 MG/2 ML Vial 60 MG IV ×2 (11:08→22:01)
[2025-01-15] MEDS: Ipratropium/Albuterol Sulfate 3 ML AMPUL.NEB INHALATION (13:10)
[2025-01-15] MEDS: 0.9% Saline Lock 10 ML Syringe IV (21:50)
[2025-01-15] MEDS: Atorvastatin Calcium 80 MG Tablet PO (21:51)
[2025-01-16] VITALS (8 sets, daily range): BP systolic 128–160; BP diastolic 50–87; PULSE 88–111; RESP 18–24; TEMP 36.3–37.4; O2SAT 90–92; BMI 30.5
[2025-01-16 03:37] LABS: Hematocrit 35.5 % (40-54); Hemoglobin 11.4 g/dL (13.0-16.5); Mean Corp Hgb Conc 32.1 g/dL (32-36); Mean Corpuscular Hgb 23.1 pg (27.0-32.0); Mean Corpuscular Volume 71.9 fL (80-94); Mean Platelet Vol. 9.7 fl (6.2-12.0); POSITIVE COUNT YES; POSITIVE DIFFERENTIAL YES; POSITIVE MORPHOLOGY YES; Platelet Count 118 K/mm3 (150-450); RBC Distribution Width CV 19.3 % (11.6-14.6); RBC Distribution Width SD 50.3 fl (35.1-43.9); Red Blood Count 4.94 M/mm3 (4.6-6.2); White Blood Count 6.2 K/mm3 (4.4-11.0)
[2025-01-16 04:00] LABS: Differential Indicated MANUAL DIFF
[2025-01-16 04:03] LABS: Anion Gap 14 (5-15); BUN 13 mg/dL (4-19); Calcium,Total 7.3 mg/dL (7.6-11.0); Carbon Dioxide 18.3 mmol/L (21.0-32.0); Chloride 112 mmol/L (98-108); Creatinine, Serum 0.79 mg/dL (0.70-1.20); EST Glomerular Filtration Rate 95 (>60); Estimated Creatinine Clearance 84.07 ml/min (50-250); Glucose 221 mg/dL (70-99); Magnesium 1.8 mg/dL (1.5-2.2); Potassium 3.4 mmol/L (3.3-5.1); Sodium Level 144 mmol/L (133-145)
[2025-01-16 04:07] LABS: Lymphocyte 4 % (19-41); Metamyelocyte 3 % (0-1); Monocyte 5 % (0-10); Myelocyte 1 % (0-0); Neutrophil-Band 3 % (0-5); Neutrophil-Segmented 84 % (47-70); Total Cells Counted 100 (MANUAL DIFF)
[2025-01-16 04:08] LABS: Absolute Lymphocyte Count 0.25 X10^3/uL (0.83-4.51); Absolute Neutrophil Count 5.4 X10^3/uL (2.0-7.7); Vacuolated Cells 1+
[2025-01-16 04:09] LABS: Anisocytosis 1+; Platelet Estimate SLT DEC (ADEQ); Toxic Granulation 3+
[2025-01-16 04:12] LABS: Microcytosis 1+; Ovalocyte 1+; Pathologist Review May foll; Schistocytes RARE
[2025-01-16 04:33] LABS: Vancomycin, Trough Level 15.3 ug/mL (5.0-15.0)
[2025-01-16 04:59] LABS: Phosphorus 2.3 mg/dL (2.7-4.5)
[2025-01-16] MEDS: Vancomycin IV 1,000 MG/200 ML BAG 200 MG IV ×2 (05:14→20:20)
[2025-01-16] MEDS: Menthol/Lanolin/Calamine/Znox 113 GM Tube 1 APPLIC TOPICAL ×3 (05:17→22:00)
--- NOTE | 2025-01-16 05:57 | PCM.RX.CS ---
Consult Antibiotic Management Pharmacy has been consulted to manage selected antibiotic: Vancomycin Type of Intervention Type of Consult: Follow-up Labs Labs: Sodium 144 mmol/L (133-145) 01/16/25 03:27 Potassium 3.4 mmol/L (3.3-5.1) 01/16/25 03:27 Chloride 112 mmol/L (98-108) H 01/16/25 03:27 Carbon Dioxide 18.3 mmol/L (21.0-32.0) L 01/16/25 03:27 Anion Gap 14 (5-15) 01/16/25 03:27 BUN 13 mg/dL (4-19) 01/16/25 03:27 Creatinine 0.79 mg/dL (0.70-1.20) 01/16/25 03:27 Est GFR (MDRD) Non-Af 95 (>60) 01/16/25 03:27 BUN/Creatinine Ratio 17.0 RATIO (10-20) 01/16/25 03:27 Glucose 221 mg/dL (70-99) H 01/16/25 03:27 Vancomycin Trough 15.3 ug/mL (5.0-15.0) H 01/16/25 03:27 Microbiology Microbiology: Microbiology 01/12/25 01:40 Sputum, Expectorated/Coughed Gram Stain - Final 01/12/25 01:40 Sputum, Expectorated/Coughed Respiratory Culture - Final Escherichia coli Enterobacter cloacae complex 01/12/25 14:35 Blood Culture (Wb) - Left Forearm Blood Culture - Preliminary No growth in 48 hours. 01/12/25 14:35 Blood Culture (Wb) - Arm Left Blood Culture - Preliminary No growth in 48 hours. 01/10/25 14:46 Mucosa - Nose SARS-CoV-2, Influenza & RSV (PCR) - Final Influenzae A 01/11/25 02:20 Stool Clostridioides difficile (PCR) - Final Goal Trough Goal Trough: 15-20 mcg/mL Pharmacy Plan for Drug Dosing Pharmacy Plan for Drug Dosing: Pharmacy Service will continue to monitor and adjust dosing as required. TROUGH 15.3 @ 11 HOURS NO CHANGES FOLLOW UP TROUGH IN 2 DAYS Follow-Up Labs Follow-Up Labs: Trough: Vancomycin Date/Time Labs Ordered Labs to be done on [date and time ordered]: 01/18 @ 5892
[2025-01-16] MEDS: Piperacil/Tazobactam 3.375 GM in 0.9% Normal Saline (50mL MB+) 50 ML IV ×3 (06:40→21:58)
[2025-01-16] MEDS: Ipratropium/Albuterol Sulfate 3 ML AMPUL.NEB INHALATION ×3 (07:29→19:51)
--- NOTE | 2025-01-16 08:08 | PCM.PN.HOSP ---
Reason for Visit Reason for Visit: Diagnoses Infectious gastroenteritis and colitis, unspecified (01/10/25) Dehydration (01/10/25) Hypoxemia (01/10/25) Other malaise (01/10/25) Shock, unspecified (01/10/25) Subjective Subjective Patient continues to experience loose bowel movement diagnostic data reviewed this morning significant for hypokalemia as well as hypophosphatemia Objective Data Objective Data Vital Signs: Vital Signs Temp Pulse Resp BP Pulse Ox O2 Del Method O2 Flow Rate 97.4 F L 98 20 H 151/50 H 92 Room Air 2 01/16/25 05:10 01/16/25 05:10 01/16/25 05:10 01/16/25 05:10 01/16/25 05:10 01/16/25 05:22 01/15/25 22:21 FiO2 48 01/13/25 08:00 Oxygen Flow Rate (L/min) 2 Oxygen Delivery Method Room Air Weight: 83.2 kg Body Mass Index (BMI) 30.5 Intake & Output: Intake and Output for Last 24 Hours 01/14/25 01/16/25 01/16/25 23:59 00:59 23:59 Intake Total 1058.17 / 1058.17 2713.3333 / 2713.3333 630 / 630 Output Total 1050 / 1050 2950 / 2950 1650 / 1650 Balance 8.17 / 8.17 -236.6667 / -236.6667 -1020 / -1020 Medical Nutrition Assessment Dietitian: Malnutrition Criteria Met Start: 01/11/25 14:42 Freq: Status: Active Protocol: Document 01/14/25 14:49 RMA (Rec: 01/14/25 14:49 RMA [id number]) Nutrition Malnutrition Evidence of Yes Malnutrition Exists Malnutrition (severe Chronic ): Evidenced By Suboptimal Energy Intake (Severe),Weight Loss (Severe) Clinical Problem Chronic Disease or Condition Related Malnutrition Etiology severe related to flu and metastatic cancer; altered GI function/diarrhea Signs/Symptoms as evidenced by 17lbs (8%) unintentional weight loss in 1 month and PO intakes <75% of estimated nutrition needs for 1 month; NPO/clear and full liquids x 3-4 days Status Active Problem Recommendation Dietitian Recommend advance diet as tolerated to Transitional Recommendations/ with goal of regular diet as able. Changes Will order 120ml chocolate ensure plus HP 4x daily with medpass to provide supplemental energy if consumed. Additional ONS as diet advanced to solid food. Lab / Micro Data 01/16/25 03:27 01/16/25 03:27 Labs: Laboratory Results - last 24 hr 01/16/25 03:27: WBC 6.2, RBC 4.94, Hgb 11.4 L, Hct 35.5 L, MCV 71.9 L, MCH 23.1 L, MCHC 32.1, RDW Std Deviation 50.3 H, RDW Coeff of Kailey 19.3 H, Plt Count 118 L, MPV 9.7, Neut % (Auto) Not Reportable, Absolute Neuts (auto) 5.4, Absolute Lymphs (auto) 0.25 L, Total Counted 100, Neutrophils % (Manual) 84 H, Band Neutrophils % 3, Lymphocytes % (Manual) 4 L, Monocytes % (Manual) 5, Metamyelocytes % 3 H, Myelocytes % 1 H, Diff Path Review May foll, Toxic Granulation 3+, Toxic Vacuolation 1+, Platelet Estimate SLT DEC, Anisocytosis 1+, Microcytosis 1+, Ovalocytes 1+, Schistocytes RARE, Sodium 144, Potassium 3.4, Chloride 112 H, Carbon Dioxide 18.3 L, Anion Gap 14, BUN 13, Creatinine 0.79, Estim Creat Clear Calc 84.07, Est GFR (MDRD) Non-Af 95, BUN/Creatinine Ratio 17.0, Glucose 221 H, Calcium 7.3 L, Phosphorus 2.3 L, Magnesium 1.8, Vancomycin Trough 15.3 H Micro: Microbiology 01/12/25 01:40 Sputum, Expectorated/Coughed Gram Stain - Final 01/12/25 01:40 Sputum, Expectorated/Coughed Respiratory Culture - Final Escherichia coli Enterobacter cloacae complex 01/12/25 14:35 Blood Culture (Wb) - Left Forearm Blood Culture - Preliminary No growth in 48 hours. 01/12/25 14:35 Blood Culture (Wb) - Arm Left Blood Culture - Preliminary No growth in 48 hours. 01/10/25 14:46 Mucosa - Nose SARS-CoV-2, Influenza & RSV (PCR) - Final Influenzae A 01/11/25 02:20 Stool Clostridioides difficile (PCR) - Final Rhythm Strip Rhythm Strip: Sinus Tach Rate: 114 Ectopy: None Physical Exam Narrative GENERAL: cooperative HEENT: Atraumatic; normocephalic EYES; Anicteric, Normal Conjunctiva NECK; supple, normal thyroid, RESPIRATORY: Diminished to auscultation CARDIOVASCULAR: Regular S1 S2, GI: soft, normoactive bowel sounds, : No Renal angle tenderness; EXTREMITIES: No edema, no clubbing, MUSCULOSKELETAL: no muscle wasting NEURO: Awake; no lateralizing signs. SKIN: No Rash PSYCH; Flat affect Assessment & Plan Assessment/Plan (1) Hypoxemia: PLAN: Plan 69-year-old man with renal cell carcinoma with disseminated mets, prior lung cancer s/p segmental resection, COPD, heart failure with preserved ejection fraction is being managed for active diarrhea for last 3 weeks with suspicion for Keytruda associated colitis, and also for likely community-acquired pneumonia in the setting of immunosuppression. 1. Acute hypoxic respiratory failure ? Multifactorial including COPD with acute exacerbation, acute influenza A infection as well as superimposed secondary bacterial pneumonia patient was placed on supplemental oxygen titrated to keep saturation greater than 90 ? 01/15/2025; currently on room air saturating 88% ? 01/16/2025; patient has been transitioned to room room air. 3. Septic shock secondary to community-acquired pneumonia and Keytruda induced colitis ? Treatment consisted of treatment of the underlying clinical etiology as well as pressors ? 01/15/2025; patient has been weaned off Levophed ? 01/16/2025; patient was transferred from the ICU to PCU 3. Acute influenza A infection ? Patient treated with Tamiflu 4. Pneumonia with suspected multidrug-resistant organisms ? Given patient immunosuppressed state managed with broad-spectrum antibiotic therapy cultures have remained negative to date 5. Keytruda induced colitis ? Patient managed with methylprednisolone consult placed to GI plan is for patient to undergo sigmoidoscopy when off pressors ? 01/15/2025; patient has a fecal management system and continues to experience several bouts of loose bowel movement ? 01/16/2025; patient continues to experience loose bowel movement and has electrolyte abnormalities including hypophosphatemia and hypokalemia which is currently being corrected per protocol 6. COPD with acute exacerbation ? Patient started on bronchodilator treatment, systemic steroid as well as antibiotic therapy. Patient placed on oxygen titrated to keep saturation greater than 90. 7. Metastatic renal cell carcinoma s/p left nephrectomy Patient remains on immunotherapy has a persistent right-sided mass 8. 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 Follows with oncology, last office visit on 12/21. CT chest abdomen pelvis on admit with stable cancer findings. 9. Previous VTE ? Patient is on apixaban 9. Chronic congestive heart failure with preserved ejection fraction ? Remains compensated 10. Dyslipidemia ?Patient is on statin therapy, continued at home dose 11. Anemia ? Secondary to chronic disorder monitoring H&H and transfuse if patient becomes symptomatic or hemoglobin falls below 7 12. Hypokalemia -Corrected per protocol ? 01/15/2025; potassium levels remain low 13. Acute kidney injury ? Patient creatinine on 01/07/2025 was 1.14 creatinine worsened and peaked at 1.97 managed with IV fluids trending down we will continue with monitoring with daily BMP 14. Coronary artery disease ? With previous bare-metal stenting of the left posterior lateral branch and MARVIN to left circumflex artery. Patient remains on guideline directed medical therapy 15. DVT prophylaxis ? On apixaban 16. Hypophosphatemia ? Corrected per protocol 17. Delirium ? Suspected to be secondary to prolonged stay in the ICU, patient started on Seroquel 25 mg twice daily -Imaging studies on admission demonstrated Cerebral atrophy. Focal encephalomalacia in the left occipital lobe with persistent vasogenic edema adjacent to the posterior horn of the left lateral ventricle. Plan is for patient to undergo repeat studies with contrast to rule out possible lesion 18. Severe malnutrition -Related to: flu and metastatic cancer As evidenced by: 17lbs (8%) unintentional weight loss in 1 month and PO intakes <75% of estimated nutrition needs for 1 month With treatment/resources used including: Continue liberalized Regular diet to optimize oral intakes. Will order 120ml EPHP chocolate 4x daily with medpass to provide supplemental energy if consumed. 19. Thrombocytopenia ? Patient has had a precipitous drop in his platelet count. Was 201 on admission currently down to 118 we will continue with monitoring with daily CBC with Time spent in the patient's overall evaluation,decision-making process, review of diagnostic data, adjustment of management, discussion with other providers, nursing nursing and ancillary staff involved in patient's care documentation, 50 Minutes Charges/Coding Visit Charges Inpatient E&M: 07993 Subs Hosp L3
--- NOTE | 2025-01-16 09:50 | CT_ITS ---
EXAM: BRAIN/HEAD W/WO CONTRAST CLINICAL HISTORY: Persistent vasogenic edema in the left cerebellar hemisphere. History of left renal cell carcinoma with metastasis. COMPARISON: Comparison is made with prior study dated January 11, 2000 25. TECHNIQUE: Multiple axial tomographic images were obtained with and without intravenous contrast administration. Coronal and sagittal reconstruction was obtained as well. 50 cc of Isovue 370 was injected intravenously. FINDINGS: Cerebral atrophy. There is evidence of focal encephalomalacia and mild degree of vasogenic edema in the posterior left parietal/occipital lobes. There is evidence of a faint 1.6 cm focal area of increased contrast uptake. This is suggestive of a focal metastatic deposit. The remainder of the examination is unchanged. CT/Brain/Head W/WO Contrast IMPRESSION: Focal 1.6 cm area of increased contrast enhancement in the posterior left parie to-occipital lobes as described. A metastatic deposit should be ruled out. [facility]
[2025-01-16] MEDS: MethylPREDNISolone 125 MG/2 ML Vial 60 MG IV ×2 (10:47→22:01)
[2025-01-16] MEDS: 0.9% Saline Lock 10 ML Syringe IV (10:47)
[2025-01-16] MEDS: Potassium Phosphate 40 MM in 0.9% Normal Saline (500mL Bag) 500 ML 62.5 MM IV (10:52)
[2025-01-16] MEDS: QUEtiapine 25 MG Tablet PO ×2 (10:54→22:00)
[2025-01-16] MEDS: Pantoprazole Sodium 20 MG Tablet PO (10:55)
[2025-01-16] MEDS: APIXABAN 2.5 MG TABLET (WCH) PO ×2 (10:55→22:00)
[2025-01-16] MEDS: Na Biphos/Potassium Phosphate PACKET 1 PACKET PO ×2 (13:21→22:00)
[2025-01-16] MEDS: Bisacodyl 5 MG Tablet 20 MG PO (14:35)
--- NOTE | 2025-01-16 16:15 | CASEMGMT ---
LUPE GAR into pt room to discuss DC plan. LUPE GAR asked pt about [facility] services. Pt states he would like to wait until tomorrow after his surgery to make decision. LUPE GAR will follow up with pt tomorrow.
[2025-01-16] MEDS: Polyethylene Glycol 3350 BOWEL PREP PO (16:31)
[2025-01-16] MEDS: Ensure Plus High Protein 120 ML LIQUID PO (16:31)
--- NOTE | 2025-01-16 19:49 | NURSING ---
Patient got up to bedside commode and pooped out his fecal management system. maintenance technician 3rd shift nurse aware. MD aware.
[2025-01-16] MEDS: Atorvastatin Calcium 80 MG Tablet PO (22:00)
[2025-01-17] VITALS (17 sets, daily range): BP systolic 109–143; BP diastolic 50–72; PULSE 69–112; RESP 16–24; TEMP 36.6–37.2; O2SAT 91–96; BMI 30.4; BMI 29.6
[2025-01-17] MEDS: Vancomycin IV 1,000 MG/200 ML BAG 200 MG IV (03:59)
[2025-01-17 04:45] LABS: Hematocrit 37.2 % (40-54); Hemoglobin 12.2 g/dL (13.0-16.5); Mean Corp Hgb Conc 32.8 g/dL (32-36); Mean Corpuscular Hgb 23.3 pg (27.0-32.0); Mean Corpuscular Volume 71.1 fL (80-94); Mean Platelet Vol. 9.5 fl (6.2-12.0); POSITIVE COUNT YES; POSITIVE DIFFERENTIAL YES; POSITIVE MORPHOLOGY YES; Platelet Count 134 K/mm3 (150-450); RBC Distribution Width CV 19.8 % (11.6-14.6); RBC Distribution Width SD 49.1 fl (35.1-43.9); Red Blood Count 5.23 M/mm3 (4.6-6.2); White Blood Count 10.4 K/mm3 (4.4-11.0)
[2025-01-17 04:59] LABS: Differential Indicated MANUAL DIFF
[2025-01-17 05:09] LABS: Magnesium 1.8 mg/dL (1.5-2.2)
[2025-01-17 05:16] LABS: Anion Gap 16 (5-15); BUN 10 mg/dL (4-19); BUN/Creat Ratio 11.3 RATIO (10-20); Calcium,Total 7.1 mg/dL (7.6-11.0); Carbon Dioxide 18.8 mmol/L (21.0-32.0); Chloride 108 mmol/L (98-108); EST Glomerular Filtration Rate 91 (>60); Estimated Creatinine Clearance 74.64 ml/min (50-250); Glucose 248 mg/dL (70-99); Potassium 3.5 mmol/L (3.3-5.1); Sodium Level 143 mmol/L (133-145)
[2025-01-17] MEDS: Piperacil/Tazobactam 3.375 GM in 0.9% Normal Saline (50mL MB+) 50 ML IV ×2 (05:23→13:54)
[2025-01-17] MEDS: Menthol/Lanolin/Calamine/Znox 113 GM Tube 1 APPLIC TOPICAL ×3 (05:23→20:37)
[2025-01-17] MEDS: Ipratropium/Albuterol Sulfate 3 ML AMPUL.NEB INHALATION ×4 (07:19→23:36)
[2025-01-17 08:15] LABS: Lymphocyte 3 % (19-41); Metamyelocyte 4 % (0-1); Monocyte 2 % (0-10); Myelocyte 3 % (0-0); Neutrophil-Band 5 % (0-5); Total Cells Counted 100 (MANUAL DIFF)
[2025-01-17 08:16] LABS: Neutrophil-Segmented 82 % (47-70); Platelet Estimate SLT DEC (ADEQ); Promyelocyte 1 % (0-0)
[2025-01-17 08:18] LABS: Absolute Lymphocyte Count 0.31 X10^3/uL (0.83-4.51)
[2025-01-17 08:19] LABS: Pathologist Review May foll
[2025-01-17] MEDS: 0.9% Saline Lock 10 ML Syringe IV (10:51)
[2025-01-17] MEDS: MethylPREDNISolone 125 MG/2 ML Vial 60 MG IV (10:51)
--- NOTE | 2025-01-17 10:55 | PCM.PN.HOSP ---
Reason for Visit Reason for Visit: Diagnoses Infectious gastroenteritis and colitis, unspecified (01/10/25) Dehydration (01/10/25) Hypoxemia (01/10/25) Other malaise (01/10/25) Shock, unspecified (01/10/25) Subjective Subjective Saw patient at bedside this morning, was present. Patient was mildly fatigued appearing but otherwise sitting back comfortably in bed and in no acute distress. Patient was somewhat irritated this morning and was anxious to have the flexible sigmoidoscopy done, so that he could work towards being discharged soon. Has continued to have loose bowel movements, similar to previous days. No other new concerns this morning. Objective Data Objective Data Vital Signs: Vital Signs Temp Pulse Resp BP Pulse Ox O2 Del Method O2 Flow Rate 98.9 F 112 H 18 111/58 L 91 Nasal Cannula 2 01/17/25 08:44 01/17/25 10:31 01/17/25 08:44 01/17/25 08:44 01/17/25 08:44 01/17/25 08:44 01/17/25 08:44 FiO2 48 01/13/25 08:00 Oxygen Flow Rate (L/min) 2 Oxygen Delivery Method Nasal Cannula Weight: 80.7 kg Body Mass Index (BMI) 29.6 Intake & Output: Intake and Output for Last 24 Hours 01/16/25 01/16/25 01/17/25 00:59 23:59 23:59 Intake Total 2713.3333 / 2713.3333 2263.3333 / 2263.3333 300 / 300 Output Total 2950 / 2950 2650 / 2650 Balance -236.6667 / -236.6667 -386.6667 / -386.6667 300 / 300 Medical Nutrition Assessment Dietitian: Malnutrition Criteria Met Start: 01/11/25 14:42 Freq: Status: Active Protocol: Document 01/14/25 14:49 RMA (Rec: 01/14/25 14:49 RMA [id number]) Nutrition Malnutrition Evidence of Yes Malnutrition Exists Malnutrition (severe Chronic ): Evidenced By Suboptimal Energy Intake (Severe),Weight Loss (Severe) Clinical Problem Chronic Disease or Condition Related Malnutrition Etiology severe related to flu and metastatic cancer; altered GI function/diarrhea Signs/Symptoms as evidenced by 17lbs (8%) unintentional weight loss in 1 month and PO intakes <75% of estimated nutrition needs for 1 month; NPO/clear and full liquids x 3-4 days Status Active Problem Recommendation Dietitian Recommend advance diet as tolerated to Transitional Recommendations/ with goal of regular diet as able. Changes Will order 120ml chocolate ensure plus HP 4x daily with medpass to provide supplemental energy if consumed. Additional ONS as diet advanced to solid food. Lab / Micro Data 01/17/25 04:32 01/17/25 04:32 Labs: Laboratory Results - last 24 hr 01/17/25 04:32: WBC 10.4, RBC 5.23, Hgb 12.2 L, Hct 37.2 L, MCV 71.1 L, MCH 23.3 L, MCHC 32.8, RDW Std Deviation 49.1 H, RDW Coeff of Kailey 19.8 H, Plt Count 134 L, MPV 9.5, Neut % (Auto) Not Reportable, Absolute Neuts (auto) 9.0 H, Absolute Lymphs (auto) 0.31 L, Total Counted 100, Neutrophils % (Manual) 82 H, Band Neutrophils % 5, Lymphocytes % (Manual) 3 L, Monocytes % (Manual) 2, Metamyelocytes % 4 H, Myelocytes % 3 H, Promyelocytes % 1 H, Diff Path Review May foll, Platelet Estimate SLT DEC, Plt Morphology Comment G, Sodium 143, Potassium 3.5, Chloride 108, Carbon Dioxide 18.8 L, Anion Gap 16 H, BUN 10, Creatinine 0.90, Estim Creat Clear Calc 74.64, Est GFR (MDRD) Non-Af 91, BUN/Creatinine Ratio 11.3, Glucose 248 H, Calcium 7.1 L, Phosphorus 3.0, Magnesium 1.8 Micro: Microbiology 01/12/25 01:40 Sputum, Expectorated/Coughed Gram Stain - Final 01/12/25 01:40 Sputum, Expectorated/Coughed Respiratory Culture - Final Escherichia coli Enterobacter cloacae complex 01/12/25 14:35 Blood Culture (Wb) - Left Forearm Blood Culture - Preliminary No growth in 48 hours. 01/12/25 14:35 Blood Culture (Wb) - Arm Left Blood Culture - Preliminary No growth in 48 hours. 01/10/25 14:46 Mucosa - Nose SARS-CoV-2, Influenza & RSV (PCR) - Final Influenzae A 01/11/25 02:20 Stool Clostridioides difficile (PCR) - Final Radiography Diagnostic Testing: Radiology Impression Brain CT 01/16/25 09:50 IMPRESSION: Focal 1.6 cm area of increased contrast enhancement in the posterior left parieto-occipital lobes as described. A metastatic deposit should be ruled out. Reading Location: [facility] Rhythm Strip Rhythm Strip: Sinus Tach Rate: 114 Ectopy: None Physical Exam Const alert, oriented x3 and no apparent distress Constitutional Narrative: Elderly male, class I obesity, mildly fatigued appearing but otherwise sitting back comfortably in bed, conversing normally, in no acute distress. General Appearance: cooperative and comfortable HEENT normocephalic, head/scalp atraumatic, hearing grossly normal bilaterally and nasal mucous membranes and turbinates normal Eyes PERRL, EOMs intact bilaterally and conjunctivae normal Neck full ROM Chest inspection of chest normal Resp normal respiratory effort and no use of accessory muscles Resp Narrative: Breathing comfortably on 2 L nasal cannula at rest. Mild diminished breath sounds bilaterally in lung bases, no wheezing or crackles noted. Cardio regular rate, regular rhythm, no murmurs and peripheral pulses 2+ throughout GI normal to inspection, nondistended, normoactive bowel sounds, soft to palpation, non-tender and non-distended Back/Spine normal ROM Extremity normal to inspection, full ROM and no pedal edema Skin no rashes or lesions noted Neuro moves all extremities and no focal motor deficits Speech: speech normal Motor Exam: strength 5/5 throughout Psych mental status grossly normal Assessment & Plan Assessment/Plan (1) Hypoxemia: (2) Dehydration: (3) Declining functional status: PLAN: Plan Patient is a 69-year-old male who presented to [facility] ED on 01/10/2025 with persistent diarrhea with fevers/chills and a fall at home with weakness. 1. Acute hypoxic respiratory failure secondary to COPD exacerbation with influenza A infection and superimposed bacterial pneumonia ? Pulmonology followed. Patient requiring 8 L high flow nasal cannula on admit to maintain appropriate oxygen saturations. Not on home oxygen. CTA chest showed no PE, did show nodular densities in the right middle and right lower lobes concerning for atypical infection versus metastatic disease. Positive for influenza A. Sputum culture grew both E. coli and Enterobacter. Continue treatment with DuoNebs as needed and p.o. steroids. Completed 7-day course of IV antibiotics on 01/17. Completed course of Tamiflu on 01/15. Weaned to 2 L nasal cannula by 01/17, continue to wean as able. 2. 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 GI following. Patient presented with worsening persistent diarrhea for 4 to 5 days prior to admission. Bicarb low at 17. CT abdomen pelvis on admit showed no concerning intra-abdominal findings. Infectious workup negative. Per GI, findings appear most consistent with Keytruda induced colitis. Planning for flexible sigmoidoscopy today, will follow-up result. Appreciate further GI recommendations. Continue to treat with steroids as noted above. 3. Septic shock secondary to community-acquired pneumonia and Keytruda induced colitis, resolved ? Patient required transfer to the ICU early in admission for hypotension despite IV fluid resuscitation. Was able to be weaned off Levophed by 01/15 and transferred out of the ICU on 01/16. Continue treatment as above. 4. Metastatic renal cell carcinoma s/p left nephrectomy and non-small cell lung cancer on immunotherapy ? Follows with oncology, last office visit on 12/21. CT chest abdomen pelvis on admit with stable cancer findings. No inpatient needs, continue outpatient follow-up. 5. Acute on chronic debility ? PT/OT/case management following. Patient weaker than baseline secondary to acute issues as noted above. Planning for home with home health care on discharge. Chronic medical conditions: ? Class I obesity: BMI 33 on admit. Complicates hospital course, care and prognosis. ? History of CAD with stenting, hypertension, hyperlipidemia: Continue home rosuvastatin. ? GERD: Continue home PPI. ? History of DVT/PE: Continue home Eliquis 2.5 mg twice daily. Notably is on lower dose of Eliquis given history of excessive bruising and nosebleeds. DVT prophylaxis: Not indicated, on Eliquis CODE STATUS: DNR CCA, DNI Expected disposition: Home with home health care, 1 to 2 days Total clinical time spent by myself addressing the patient's medical issues, reviewing all the data, and collaborating with patient's care team: 35 minutes. Charges/Coding Visit Charges Inpatient E&M: 97266 Subs Hosp L2
--- NOTE | 2025-01-17 15:45 | EGD_PTH ---
PATIENT: KENN IRAHETA LOC: [facility] U#:[id number] AGE/SX: 69/M ROOM: [facility] RE01/10/[address]: Dr. Evelio Hong MD : 1955 BED: 1 DIS: 01/18/2025 SPEC #: [id number] RECD: 01/18/25 11:19 STATUS: ZENAIDA STROUD #: [id number] [place]: 01/17/25 15:[address]: Michael Chambers DEPT: SURGICAL PATHOLOGY RECD BY: Woodrow Woodard ENTERED: 01/18/25 11:19 SP TYPE: EGD BIOPSY OTHR DR: DO Dr. Katlin Rodrigues MD Dr. David Kittoe, MD Dr. Eugene Petrilla, DO Dr. Nicholas F Kotsonis, MD Tissues: Sigmoid colon biopsy Procedures: Surgery Specimen Level IV HEADER OPERATION: Flexible sigmoidoscopy with biopsy PRE-OP DIAGNOSIS: Immunotherapy induced colitis TISSUE SUBMITTED: Sigmoid colon biopsy MICROSCOPIC DIAGNOSIS SIGMOID COLON, BIOPSY: * Focal active colitis with acute cryptitis and crypt abscess - see note. * Note: The focal and limited nature of the inflammation, plus lack of apoptosis or crypt distortion/drop ou,t and without increased eosinophils, favors focal active colitis due to bowel prep artifact or medication injury (eg: NSAIDs) or resolving/mild infection over immunotherapy-induced colitis. Recommend correlation with clinical and endoscopic findings. MICROSCOPIC DESCRIPTION Slides are reviewed. GROSS DESCRIPTION Received in fixative is one container labeled with the patient's name and designated Sigmoid colon biopsy. The specimen consists of multiple irregular fragments of light silva soft tissue that in aggregate measure 1.7 x 0.2 x 0.2 cm. The specimen is totally submitted in one cassette. 01/18/2025 CPT:55286
--- NOTE | 2025-01-17 16:34 | PCM.PN.BLA ---
Progress Note Patient is for colonoscopy today. He did complete the prep but he does not know how clear he is. Physical Exam Narrative GENERAL: cooperative HEENT: Atraumatic; normocephalic EYES; Anicteric, Normal Conjunctiva NECK; supple, normal thyroid, RESPIRATORY: Diminished to auscultation CARDIOVASCULAR: Regular S1 S2, GI: soft, normoactive bowel sounds, : No Renal angle tenderness; EXTREMITIES: No edema, no clubbing, MUSCULOSKELETAL: no muscle wasting NEURO: Awake; no lateralizing signs. SKIN: No Rash PSYCH; Flat affect Assessment & Plan Assessment/Plan (1) Hypoxemia: PLAN: Plan 69-year-old man with renal cell carcinoma with disseminated mets, prior lung cancer s/p segmental resection, COPD, heart failure with preserved ejection fraction is being managed for active diarrhea for last 3 weeks with suspicion for Keytruda associated colitis, Keytruda induced colitis ? Patient managed with methylprednisolone and patient to undergo sigmoidoscopy when off pressors ? 01/15/2025; patient has a fecal management system and continues to experience several bouts of loose bowel movement ? 01/16/2025; patient continues to experience loose bowel movement and has electrolyte abnormalities including hypophosphatemia and hypokalemia which is currently being corrected per protocol Patient will undergo flexible sigmoidoscopy for biopsies to confirm immunotherapy induced colitis. He was explained alternatives, risk and benefits collateralized and bleeding, infection, sepsis, perforation, need for emergent urgent . He will have an ASA of 3. Visit Charges Inpatient E&M: 45197 Subs Hosp L2
--- NOTE | 2025-01-17 16:39 | PCM.PRE.AN2 ---
ASA Classification* ASA Classification ASA Classification: 4 Assessment & Plan Anesthesia* Anesthesia Assessment Anesthesia Assessment: Discussed sedation and/or anesthesia options, risks, benefits, and alternatives with patient/parents/legal guardian/POA. Questions invited. The patient/parents/legal guardian/POA seems to understand and agrees to proceed with anesthesia plan. Reviewed the physical assessment, medical history, allergy history and patient home medications list prior to surgery/procedure/anesthetic and documented any changes. Performed airway and anesthesia risk assessments. Patient is a 69 y/o M prsenting for persistent diarrhea, fevers, and chills. Also has history of DVT/PE. Eliquis being held. Also has metastatic renal cell carcinoma s/p left nephrectomy with non-small cell lung cancer, immunocompromised. Had hypoxic respiratory failure with concern for CAP, was treated empirically. 1. Acute hypoxic respiratory failure ? Multifactorial including COPD with acute exacerbation, acute influenza A infection as well as superimposed secondary bacterial pneumonia patient was placed on supplemental oxygen titrated to keep saturation greater than 90 ? 01/15/2025; currently on room air saturating 88% ? 01/16/2025; patient has been transitioned to room room air. 3. Septic shock secondary to community-acquired pneumonia and Keytruda induced colitis ? Treatment consisted of treatment of the underlying clinical etiology as well as pressors ? 01/15/2025; patient has been weaned off Levophed ? 01/16/2025; patient was transferred from the ICU to PCU 3. Acute influenza A infection ? Patient treated with Tamiflu 4. Pneumonia with suspected multidrug-resistant organisms ? Given patient immunosuppressed state managed with broad-spectrum antibiotic therapy cultures have remained negative to date 5. Keytruda induced colitis ? Patient managed with methylprednisolone consult placed to GI plan is for patient to undergo sigmoidoscopy when off pressors ? 01/15/2025; patient has a fecal management system and continues to experience several bouts of loose bowel movement ? 01/16/2025; patient continues to experience loose bowel movement and has electrolyte abnormalities including hypophosphatemia and hypokalemia which is currently being corrected per protocol 6. COPD with acute exacerbation ? Patient started on bronchodilator treatment, systemic steroid as well as antibiotic therapy. Patient placed on oxygen titrated to keep saturation greater than 90. 7. Metastatic renal cell carcinoma s/p left nephrectomy Patient remains on immunotherapy has a persistent right-sided mass 8. 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 Follows with oncology, last office visit on 12/21. CT chest abdomen pelvis on admit with stable cancer findings. 9. Previous VTE ? Patient is on apixaban 9. Chronic congestive heart failure with preserved ejection fraction ? Remains compensated 10. Dyslipidemia ?Patient is on statin therapy, continued at home dose 11. Anemia ? Secondary to chronic disorder monitoring H&H and transfuse if patient becomes symptomatic or hemoglobin falls below 7 12. Hypokalemia -Corrected per protocol ? 01/15/2025; potassium levels remain low 13. Acute kidney injury ? Patient creatinine on 01/07/2025 was 1.14 creatinine worsened and peaked at 1.97 managed with IV fluids trending down we will continue with monitoring with daily BMP 14. Coronary artery disease ? With previous bare-metal stenting of the left posterior lateral branch and MARVIN to left circumflex artery. Patient remains on guideline directed medical therapy Anesthesia Type Anesthesia Type: General History Source History Obtained from:: Patient and Chart Anesthesia Focused Assessment* Temperature: 98.2 F Pulse Rate: 99 Blood Pressure: 138/69 Respiratory Rate: 18 Pulse Ox: 91 Oxygen Delivery Method: Nasal Cannula Oxygen Flow Rate (L/min): 2 Fraction of Inspired Oxygen (FIO2): 48 Airway Assessment Mouth opens: >3 cm Mallampati Score: II Teeth Condition: Dentures, Lower and Upper Neck Range of motion (ROM): Full ROM Focused Labs Anesthesia Preop lab: CBC WBC 10.4 K/mm3 (4.4-11.0) 01/17/25 04:32 01/17/25 RBC 5.23 M/mm3 (4.6-6.2) 01/17/25 04:32 01/17/25 Hgb 12.2 g/dL (13.0-16.5) L 01/17/25 04:32 01/17/25 Hct 37.2 % (40-54) L 01/17/25 04:32 01/17/25 Plt Count 134 K/mm3 (150-450) L 01/17/25 04:32 01/17/25 CHEMISTRY Potassium 3.5 mmol/L (3.3-5.1) 01/17/25 04:32 01/17/25 Sodium 143 mmol/L (133-145) 01/17/25 04:32 01/17/25 Magnesium 1.8 mg/dL (1.5-2.2) 01/17/25 04:32 01/17/25 Phosphorus 3.0 mg/dL (2.7-4.5) 01/17/25 04:32 01/17/25 BUN 10 mg/dL (4-19) 01/17/25 04:32 01/17/25 Creatinine 0.90 mg/dL (0.70-1.20) 01/17/25 04:32 01/17/25 Glucose 248 mg/dL (70-99) H 01/17/25 04:32 01/17/25 POC Glucose 251 mg/dL (74-106) H 12/16/24 11:03 12/16/24 TSH 2.960 uIU/mL (0.358-3.740) 11/08/24 09:11 11/08/24 COAG PT 19.7 SECONDS (11.7-14.9) H 01/13/25 10:05 01/13/25 Pre-Assessment Diagnosis/Proposed Procedure Planned Operative Procedure(s): Flexible sigmoidoscopy w/ biopsy Anesthesia History 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 When Was Last Pacemaker Check QUESTION #4 FULL TEXT: You/Your Family Experience fever (hyperthermia) with Anesthesia Any additional information?: No Last Oral Intake Last Oral intake: Last Oral Intake NPO since 00:00 01/17/25 03:12 Meds taken in AM with sips of water? 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 machine operator plasma arc Female HX of Motion Sickness HX of N/V After Surgery Non-Smoker Duration of Surgery greater than 60 minutes Number of Risk Factors PONV Score Any additional information?: No Height & Weight Height & Weight: Anesthesia: Height & Weight Height 5 ft 5 in 01/17/25 03:12 Weight: 80.7 kg 01/17/25 06:28 Body Mass Index (BMI) 29.6 01/17/25 06:28 Respiratory Assessment Respiratory Assessment - welding machine operator plasma arc: Respiratory Tract Infection Hx - 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 Has anyone observed you stop No 01/10/25 16:41 breathing during sleep? STOP Results Positive 01/10/25 16:41 QUESTION #5 FULL TEXT : Do you snore loudly (louder than talking or can be heard through closed doors)? 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 Specify any problems Hx of Preganancy in last 3 N/A 01/10/25 16:41 Months Nurse Filling Out Transfusion [id number] 01/10/25 16:41 & Questions: Date: 01/10/25 01/10/25 16:41 Time: 16:49 01/10/25 16:41 Patient unable to answer at this time (ie. confused, unrespo Any additional information?: No /Reproduction History /Reproductive History - welding machine operator plasma arc: /Reproductive Hx- welding machine operator plasma arc Hx Now Gestational Age (in weeks): EDC: Hx Hx Para Hx Section SAB No 12/02/24 09:21 Any additional information?: No Active Medications Active Medications: Current Medications Generic Name Dose Route Start Last Admin Trade Name Freq PRN Reason Stop Dose Admin Acetaminophen 650 mg 01/10/25 16:40 01/14/25 21:36 Acetaminophen 325 Mg Tablet PO 650 mg Q6H PRN PRN Administration Pain 1-10 Or Fever>100.7 Acetaminophen 650 mg 01/12/25 13:15 Acetaminophen 325 Mg Tablet PO Q4H PRN PRN HEADACHE/FEVER (T>100F) Al Hydroxide/Mg Hydroxide 15 ml 01/10/25 20:13 01/14/25 16:00 Mag Hydrox/Al Hydrox/Simeth 30 Ml Udc PO 15 ml Q4H PRN PRN Administration DYSPEPSIA/INDIGESTION Albuterol/Ipratropium 3 ml 01/10/25 16:40 01/11/25 22:52 Ipratropium/Albuterol Sulfate 3 Ml Ampul.Neb INHALATION 3 ml Q4H PRN Administration shortness of breath or wheezing Apixaban 2.5 mg 01/11/25 10:00 01/17/25 10:42 Apixaban 2.5 Mg Tablet (Wch) PO Not Given BID DAVE Atorvastatin Calcium 80 mg 01/10/25 22:00 01/16/25 22:00 Atorvastatin Calcium 80 Mg Tablet PO 80 mg QHS DAVE Administration Calamine/Phenol 1 applic 01/12/25 06:00 01/17/25 13:58 Menthol/Lanolin/Calamine/Znox 113 Gm Tube TOPICAL 1 applic TID DAVE Administration Protocol Loperamide HCl 2 mg 01/12/25 04:01 01/15/25 08:29 Loperamide 2 Mg Capsule PO 2 mg Q2H PRN PRN Administration DI Melatonin 3 mg 01/10/25 16:40 01/14/25 21:37 Melatonin 3 Mg Tablet PO 3 mg QHS PRN PRN Administration INSOMNIA Nutritional Formula (Lactose Free) 120 ml 01/11/25 18:00 01/17/25 13:47 Ensure Plus High Protein 120 Ml Liquid PO Not Given 4X/DAY [facility] Ondansetron HCl 4 mg 01/10/25 16:40 Ondansetron 4 Mg/2 Ml Vial IV Q8H PRN PRN NAUSEA/VOMITING Pantoprazole Sodium 20 mg 01/10/25 20:15 01/17/25 10:42 Pantoprazole Sodium 20 Mg Tablet PO Not Given DAILY DAVE Potassium Chloride 20 meq 01/17/25 08:00 01/17/25 08:37 Potassium Chloride Oral Tablet 20 Meq PO Not Given DAILYCM DAVE Prednisone 40 mg 01/18/25 08:00 Prednisone 20 Mg Tablet PO BREAKFAST DAVE Quetiapine Fumarate 25 mg 01/15/25 10:00 01/17/25 10:42 Quetiapine 25 Mg Tablet PO Not Given BID [facility] Protocol Sodium Chloride 10 - 40 ml 01/10/25 16:51 01/17/25 10:51 0.9% Saline Lock 10 Ml Syringe IV 10 ml UD PRN Administration Port-a-Cath (VAD)/R Port Flush Sodium Chloride 10 - 40 ml 01/10/25 16:51 0.9 % Nacl (Sterile) Posiflush 10 Ml IV UD PRN Port access or dressing change Sodium Chloride 10 - 40 ml 01/10/25 16:51 0.9% Saline Lock 10 Ml Syringe IV UD PRN SALINE FLUSH [facility] Medical History Acute infective gastroenteritis COPD exacerbation History of steroid therapy Low iron Seizures Shortness of breath on exertion History of pain when walking History of edema History of echocardiogram Cardiology follow-up encounter Cervical spinal cord injury Cervical stenosis of spine Numbness in right leg RUE numbness Diarrhea Hypokalemia Duodenal ulcer Anemia Diabetes mellitus, type 2 Hyperglycemia Hyponatremia Thrombocytopenia Pulmonary emboli COPD (chronic obstructive pulmonary disease) Imbalance Brain metastasis Pneumonia Sinus congestion Hx of radiation therapy Brain metastasis Frequent headaches Epistaxis Contact with or suspected exposure to other viral communicable disease Iron deficiency anemia due to chronic blood loss Encounter for immunotherapy Encounter for immunotherapy COVID-19 Nonrheumatic aortic (valve) stenosis with insufficiency Elevated troponin (05/15/21) Encephalopathy (05/15/21) Seizure (07/07/21) Metastatic renal cell carcinoma to lung Dyspnea Metastasis to adrenal gland Port-A-Cath in place Atherosclerotic heart disease of [place] coronary artery without angina pectoris Hyperlipidemia Wears glasses Wears dentures Gastric reflux Former smoker History of primary malignant neoplasm of left kidney 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 Skin cancer Abnormal colonoscopy Essential (primary) hypertension COPD (chronic obstructive pulmonary disease) Adenocarcinoma of right lung Home Medications ?Medication ?Instructions ?Recorded ?Last Taken ?Type rosuvastatin 40 mg tablet (Crestor) 40 mg PO QHS CHOLESTEROL 08/18/18 01/09/25 20:00 History 40 mg carvedilol 25 mg tablet 25 mg PO BID blood pressure 04/30/21 01/09/25 20:00 History 25 mg albuterol sulfate 90 mcg/actuation 1 puff inhalation Q6H PRN SOB 05/31/21 06/12/21 History aerosol inhaler hydralazine 50 mg tablet 50 mg PO BID blood pressure 05/31/21 01/09/25 20:00 History 50 mg apixaban 5 mg tablet (Eliquis) 2.5 mg (1/2 x 5 mg) PO BID #60 tabs 07/20/23 01/09/25 Rx Held on 01/07/25. Instructions: See instructions on page 1 amlodipine 10 mg tablet 10 mg PO DAILY Check with primary 08/21/23 01/09/25 08:12 Rx doctor #90 tabs 10 mg ipratropium 0.5 mg-albuterol 3 mg 3 ml inhalation Q4H PRN shortness 09/07/23 Unknown Rx (2.5 mg base)/3 mL nebulization of breath or wheezing #180 mL soln omeprazole 20 mg capsule,delayed 20 mg PO QDAY acid buttonhole facer 06/09/24 01/09/25 08:00 History release 20 mg acetaminophen 500 mg tablet 500 mg PO Q6H PRN fever or pain 08/05/24 Unknown History pembrolizumab 25 mg/mL intravenous 200 mg IV .COMPLEX 12/14/24 12/21/24 History solution (Keytruda) ondansetron 8 mg disintegrating 8 mg PO Q8H PRN nausea and 01/07/25 Unknown Rx tablet vomiting #12 tabs Allergy/AdvReac Type Severity Reaction Status Date / Time No Known Allergies Allergy Verified 03/11/25 09:44 Family History Sister Diabetes CAD (coronary artery disease) Mother CVA (cerebral vascular accident) CAD (coronary artery disease) Lung cancer Father CAD (coronary artery disease) Brother CAD (coronary artery disease) Surgical History H/O cervical discectomy History of cataract surgery History of lobectomy of lung History of nephrectomy, left History of coronary angioplasty (01/05/04) History of coronary artery stent placement (07/17/03) Social History household members: spouse Smoking Status: Former smoker Tobacco: How many years used: 40 second hand exposure: No alcohol intake: current alcohol intake frequency: a few times a month Alcohol type: beer substance use type: does not use seatbelt use: always do you feel safe at home: Yes Review of Systems (Anesthesia) ROS Narrative System reviewed and no additional complaints, except as documented. Physical Exam Const alert, oriented x3 and average body habitus
--- NOTE | 2025-01-17 17:08 | OP.CCLET_ITS ---
01/17/2025 Jacob Jennings Re : Flexible Sigmoidoscopy procedure for Steven Arshad Dear Dick This procedure was performed on Friday, January 17, 2025. My impressions and recommendations are as follows: Impressions : - Preparation of the colon was poor. - No specimens collected. Recommendations : My findings are described in the full procedure note, which is enclosed. If I can be of further assistance, please feel free to contact me at . Sincerely, Michael Chambers, 01/17/2025 5:07:49 PM This report has been signed electronically.
--- NOTE | 2025-01-17 17:08 | OP.FLEXSIG_ITS ---
Patient Name: Steven Arshad Procedure Date: 01/17/2025 4:33 PM Date of : 1955 Age: 69 Procedure: Flexible Sigmoidoscopy Indications: Diarrhea Providers: Michael Chambers DO Medicines: Monitored Anesthesia Care Patient Profile: This is a 69 year old male. Refer to note in patient chart for documentation of history and physical. Last Colonoscopy: date unknown. Unable to locate last colonoscopy report. Complications: No immediate complications. Procedure: Pre-Anesthesia Assessment: - Prior to the procedure, a History and Physical was performed, and patient medications and allergies were reviewed. The patient is competent. The risks and benefits of the procedure and the sedation options and risks were discussed with the patient. All questions were answered and informed consent was obtained. Patient identification and proposed procedure were verified by the physician in the pre-procedure area. Mental Status Examination: alert and oriented. Airway Examination: normal oropharyngeal airway and neck mobility. Respiratory Examination: clear to auscultation. CV Examination: normal. ASA Grade Assessment: II - A patient with mild systemic disease. After reviewing the risks and benefits, the patient was deemed in satisfactory condition to undergo the procedure. The anesthesia plan was to use monitored anesthesia care (MAC). Immediately prior to administration of medications, the patient was re-assessed for adequacy to receive sedatives. The heart rate, respiratory rate, oxygen saturations, blood pressure, adequacy of pulmonary ventilation, and response to care were monitored throughout the procedure. The physical status of the patient was re-assessed after the procedure. After obtaining informed consent, the endoscope was passed under direct vision. Throughout the procedure, the patient's blood pressure, pulse, and oxygen saturations were monitored continuously. The pediatric colonoscope was introduced through the anus and advanced to the descending colon. The flexible sigmoidoscopy was accomplished without difficulty. The patient tolerated the procedure well. The quality of the bowel preparation was poor. Scope In: 5:00:39 PM Scope Out: 5:03:05 PM Total Procedure Duration Time 0 hours 2 minutes 26 seconds Findings: The perianal and digital rectal examinations were normal. An area of moderately congested mucosa was found in the rectum, in the recto-sigmoid colon, in the sigmoid colon and in the descending colon. Biopsies were taken with a cold forceps for histology. Verification of patient identification for the specimen was done by the physician. Estimated blood loss was minimal. Multiple small and large-mouthed diverticula were found in the recto-sigmoid colon, sigmoid colon and descending colon. Impression: - Preparation of the colon was poor. - No specimens collected. Procedure Code(s): --- Professional --- 70306, Sigmoidoscopy, flexible; with biopsy, single or multiple CPT copyright 2021 [employer]. All rights reserved. The codes documented in this report are preliminary and upon transmission engineer review may be revised to meet current compliance requirements. Michael Chambers DO 01/17/2025 5:07:49 PM This report has been signed electronically. Number of Addenda: 0 Note Initiated On: 01/17/2025 4:33 PM
--- NOTE | 2025-01-17 17:20 | PCM.POST.ANE ---
Anesthesia: Postop Eval I Current Vital Signs Temperature: 98.7 F Pulse Rate: 93 Blood Pressure: 130/62 Respiratory Rate: 16 Pulse Ox: 95 Oxygen Delivery Method: Room Air Assessment Airway patent: Yes Spontaneous unlabored respirations: Yes Mental status: Awake and Calm nausea: No Vomiting: No Anesthesia Complication: No Fluid Hydration Crystalloid volume administer (ml): 30 Total IV fluid infused: 30 Progress Note Anesthesia document: Postop Eval 1 completed: Yes
--- NOTE | 2025-01-17 18:39 | PCM.POSTANE2 ---
Anesthesia Postop Eval I Sum Postop Eval Completion status Anesthesia document: Postop Eval 1 completed: Yes Anesthesia Postop Eval I Summary Anesthesia Postop Eval I Summary: Anesthesia Postop Eval I: Assessment Summary Airway patent Yes 01/17/25 17:20 [email or web address] Spontaneous unlabored Yes 01/17/25 17:20 [email or web address] respirations Mental status Awake,Calm 01/17/25 17:20 [email or web address] nausea No 01/17/25 17:20 [email or web address] Vomiting No 01/17/25 17:20 [email or web address] Anesthesia Postop Eval I: Fluid Summary Crystalloid volume administer 30 01/17/25 17:20 [email or web address] (ml) Colloids volume administered ( ml) Blood Product volume administered (ml) Total IV fluid infused 30 01/17/25 17:20 [email or web address] Anesthesia Postop Eval I: Summary Notes Anesthesia Complication No 01/17/25 17:20 [email or web address] Anesthesia Complication Comment: Post-operative progress note Anesthesia: Postop Eval II Evaluation Mental status: Awake Pain Level: 0 nausea: No Vomiting: No Complications Anesthesia Complication: No
[2025-01-17] MEDS: Atorvastatin Calcium 80 MG Tablet PO (20:35)
[2025-01-17] MEDS: APIXABAN 2.5 MG TABLET (WCH) PO (20:35)
[2025-01-17] MEDS: QUEtiapine 25 MG Tablet PO (20:36)
[2025-01-18] VITALS (10 sets, daily range): BP systolic 121–140; BP diastolic 57–59; PULSE 85–120; RESP 18–20; TEMP 36.8–37.4; O2SAT 88–96; BMI 29.7
[2025-01-18] MEDS: Menthol/Lanolin/Calamine/Znox 113 GM Tube 1 APPLIC TOPICAL (06:31)
[2025-01-18] MEDS: Ipratropium/Albuterol Sulfate 3 ML AMPUL.NEB INHALATION ×3 (07:22→15:19)
[2025-01-18] MEDS: QUEtiapine 25 MG Tablet PO (08:35)
[2025-01-18] MEDS: Potassium Chloride Oral Tablet 20 MEQ PO (08:35)
[2025-01-18] MEDS: Pantoprazole Sodium 20 MG Tablet PO (08:35)
[2025-01-18] MEDS: APIXABAN 2.5 MG TABLET (WCH) PO (08:35)
[2025-01-18] MEDS: predniSONE 20 MG Tablet 40 MG PO (08:38)
[2025-01-18] MEDS: Ensure Plus High Protein 120 ML LIQUID PO (10:41)
--- NOTE | 2025-01-18 10:48 | CASEMGMT ---
Addendum entered by Bianca Santillan 01/18/25 14:22: Script for Home O2 and home amb O2 testing results sent to [facility] via [employer]. Addendum entered by Bianca Santillan 01/18/25 13:24: LUPE GAR to room. Pt and made aware [facility] able to accept and SOC slated for tomorrow. They are also aware pt qualifies for home O2 and he is to wear it @ 2 l/m continuously. DC plan updated w/this info. Addendum entered by Bianca Santillan 01/18/25 13:11: Pt qualifies for home O2 @ 2 l/m continuously. LUPE GAR will obtain script from Dr Hong and send to [facility] via [employer] when available. Addendum entered by Bianca Santillan 01/18/25 12:48: Call received from Dahiana @ [facility]. They are able to accept pt. SOC slated for tomorrow, 01/19. Original Note: LUPE GAR NOTE: RN RIN to room. Pt resting in bed, @ bedside. Pt ambulated 150 ft yesterday w/use of WW, HHC anticipated @ dc. Discussed HHC and pt/'s wishes. states does want pt to have HHC, pt agreeable. would like [facility] and declines wanting list of other HHC options unless [facility] unable to accept. Call placed to [facility] and left re: referral. verifies pt does have a pulse ox @ home. This RN RIN had made arrangements during pt's last admission to have new nebulizer delivered to pt's home, as it was still under warranty. Pt verifies he did receive it. Pt and made aware home O2 amb testing will be completed. If pt qualifies for home O2, they would like [facility] again, as he has used them in the past. They deny having other discharge needs/concerns at this time. Jorge Luis JOHNSON RN, CM
--- NOTE | 2025-01-18 12:03 | PCM.DC ---
Discharge Instructions Diet Discharge Diet: No restrictions DC O2, CPAP, BIPAP needs Home O2 Discharge instructions: No Dressing / Incision Discharge Activity: Return to Normal Activity Dressing / Incision Call your doctor if you observe: Fever of 101 or Higher, Shortness of breath, Dizziness, Fainting spells, Swelling in the ankles, Chest pain and Increased palpitations (irregular heartbeat) Follow Up Care Test Results: Test results from this visit will be discussed in further detail at your follow-up appointment, if applicable. Discharge Plan Admission Admit Date/Time: 01/10/25 13:50 Attending Provider: Evelio Hong Primary Care Provider: Jacob Jennings Consulting Providers: Chris Medina; Katlin Dwyer; Antwan Pitts Instructions Additional Instructions / Restrictions: Follow-up with your oncologist to discuss either the continuation or discontinuation of Keytruda based on your colitis diagnosis. Discharge Orders/Prescriptions Prescriptions: New prednisone 20 mg Tablet 40 mg PO BREAKFAST 30 Days Qty: 60 0RF Continued carvedilol 25 mg tablet 25 mg PO BID Rx Instructions: must administer with a meal/food albuterol sulfate 90 mcg/actuation HFA aerosol inhaler 1 puff inhalation Q6H PRN (Reason: SOB) amlodipine 10 mg tablet 10 mg PO DAILY Qty: 90 3RF omeprazole 20 mg capsule,delayed release(DR/EC) 20 mg PO QDAY acetaminophen 500 mg tablet 500 mg PO Q6H PRN (Reason: fever or pain) rosuvastatin [Crestor] 40 MG tablet 40 mg PO QHS Keytruda 25 mg/mL solution 200 mg IV .COMPLEX Rx Instructions: 200 mg intravenously; every 3 weeks, last dose 12/21/24 ondansetron 8 mg tablet,disintegrating 8 mg PO Q8H PRN (Reason: nausea and vomiting) Qty: 12 0RF hydralazine 50 mg tablet 50 mg PO BID Eliquis 5 mg tablet 2.5 mg PO BID Qty: 60 12RF ipratropium-albuterol 0.5 mg-3 mg(2.5 mg base)/3 mL solution for nebulization 3 ml inhalation Q4H PRN (Reason: shortness of breath or wheezing) Qty: 180 3RF Referrals / Follow Up: Jacob Jennings DO [Primary Care Provider] - Within 1 Week Angela Rodriguez MD [Med Staff - Active Staff] - Within 1 Month Michael Chambers DO [Med Staff - Active Staff] - Within 2 Weeks Disposition Disposition (needs filled in before D/C Order can be placed): Home, Self Care
[2025-01-18] MEDS: Potassium Phosphate 21 MM in 0.9% Normal Saline (250mL Bag) 250 ML 84 MM IV (12:42)
--- NOTE | 2025-01-18 14:34 | PHA.DC_ITS ---
Pharmacy [facility] has performed discharge medication reconciliation and counseling for this patient. 1. PREDNISONE 40MG PO BREAKFAST The patient's discharge medication list was reviewed for discrepancies and discrepancies were resolved. The patient was counseled on the following discharge medications and changes in medications for homegoing were reviewed. The Reason for Use, instructions for use, and potential side effects were reviewed for all new medications. The patient's questions regarding all of their medications were answered. The patient was able to verbally demonstrate an understanding of their discharge medications. Medications at Discharge Home Medications rosuvastatin 40 mg tablet (Crestor) 40 mg PO QHS CHOLESTEROL 08/18/18 carvedilol 25 mg tablet 25 mg PO BID blood pressure 04/30/21 albuterol sulfate 90 mcg/actuation aerosol inhaler 1 puff inhalation Q6H PRN SOB 05/31/21 hydralazine 50 mg tablet 50 mg PO BID blood pressure 05/31/21 apixaban 5 mg tablet (Eliquis) 2.5 mg (1/2 x 5 mg) PO BID #60 tabs 07/20/23 amlodipine 10 mg tablet 10 mg PO DAILY Check with primary doctor #90 tabs 08/21/23 ipratropium 0.5 mg-albuterol 3 mg (2.5 mg base)/3 mL nebulization soln 3 ml inhalation Q4H PRN shortness of breath or wheezing #180 mL 09/07/23 omeprazole 20 mg capsule,delayed release 20 mg PO QDAY 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
--- NOTE | 2025-01-18 15:03 | PCM.PN.BLA ---
Progress Note I have reviewed the oxygen testing, and this patient qualifies for the home equipment and portability. The patient is mobile in the home and the community.
--- NOTE | 2025-01-18 15:56 | PCM.DC.SUM ---
Providers Date of Admission: 01/10/25 Primary Care Physician: Dr. Jacob Jennings, DO Consultations 01/11/25 12:47 Consult: Gastroenterology Routine Consulting Provider: [facility] Reason for Consult: ICI colitis EMERGENT Consult: No MD Notified: Yes Date Notified: 01/11/25 Time Notified: 12:47 Method of Notification: Text 01/12/25 00:24 Consult: Regulatory Administrator / Pulmonary Medicine Routine Consulting Provider: Intensivists/Pulmonary Med Reason for Consult: resp failure, influenza A EMERGENT Consult: No MD Notified: Yes Date Notified: 01/11/25 Time Notified: 23:37 Method of Notification: Text Reason For Visit: DIARRHEA W/ DEHYDRATION AND SYNOPAL EPISODE Diagnosis Discharge Diagnosis (1) Hypoxemia: Status: Acute Code(s): R09.02 - Hypoxemia Medications at Discharge Home Medications rosuvastatin 40 mg tablet (Crestor) 40 mg PO QHS CHOLESTEROL 08/18/18 carvedilol 25 mg tablet 25 mg PO BID blood pressure 04/30/21 albuterol sulfate 90 mcg/actuation aerosol inhaler 1 puff inhalation Q6H PRN SOB 05/31/21 hydralazine 50 mg tablet 50 mg PO BID blood pressure 05/31/21 apixaban 5 mg tablet (Eliquis) 2.5 mg (1/2 x 5 mg) PO BID #60 tabs 07/20/23 amlodipine 10 mg tablet 10 mg PO DAILY Check with primary doctor #90 tabs 08/21/23 ipratropium 0.5 mg-albuterol 3 mg (2.5 mg base)/3 mL nebulization soln 3 ml inhalation Q4H PRN shortness of breath or wheezing #180 mL 09/07/23 omeprazole 20 mg capsule,delayed release 20 mg PO QDAY acid brick dropper 06/09/24 acetaminophen 500 mg tablet 500 mg PO Q6H PRN fever or pain 08/05/24 pembrolizumab 25 mg/mL intravenous solution (Keytruda) 200 mg IV .COMPLEX 12/14/24 ondansetron 8 mg disintegrating tablet 8 mg PO Q8H PRN nausea and vomiting #12 tabs 01/07/25 prednisone 20 mg tablet 40 mg (2 x 20 mg) PO BREAKFAST 30 days #60 tabs 01/18/25 Hospital Course Operations - (Sigmoidoscopy 01/17/2025) Procedures 2-D Echocardiogram Summary of Care Provided Minutes Spent on Discharge: 36 Hospital Course: Per HPI: KENN IRAHETA, is a 69 M who presented to [facility] ED on 01/10/2025 with persistent diarrhea with fevers and chills and a fall at home with weakness. Patient was seen in the ED 3 days ago for vomiting and diarrhea with some blood in the stool. He is on Eliquis 2.5 mg twice daily for prior history of DVT/PE and that was held. Notably is on lower dose of Eliquis due to history of nosebleeds and excessive bruising. Patient has had no further blood in the stool but has continued to have profuse watery diarrhea. Has had minimal appetite and has not been eating or drinking much. He also developed a fever yesterday up to 103. Has not had any significant abdominal pain throughout this time. Today patient's heard a thud at home and patient stated he had fallen to the floor and then climbed back into bed, but he was feeling very weak. Did not think that he hit his head. Patient's history is notable for both metastatic renal cell carcinoma s/p left nephrectomy with mets to the brain and right adrenal gland, along with second primary malignancy of non-small cell lung cancer. Patient follows with [facility], last office visit was on 12/21. Patient is currently only on Keytruda and has been on this since 2020, has gone through over 50 cycles. Denies any prior history of diarrhea or abdominal issues secondary to Keytruda. Patient notably did have a suspected upper respiratory infection about 1 month ago and completed short course of antibiotics and steroids for this. Did not have any diarrhea while on the antibiotics that he notes. In the ED patient was noted to be dry appearing on exam and was hypotensive to the 90s systolic. He was also in sinus tachycardia to the 110s and was febrile to 103.0F. Was also noted to be hypoxic requiring 6 L nasal cannula to maintain appropriate oxygen saturations. Patient does not wear any oxygen at baseline. Chest x-ray showed bibasilar atelectasis versus pneumonia. CT brain was unremarkable. He was given 1 L of IV fluids with improvement in blood pressure to the 110s systolic and improvement in the heart rate to 100s. However, he remained hypoxic and needed 8 L high flow nasal cannula after the IV fluids. Given these findings, hospitalist contacted for admission. I saw the patient at bedside in the ED, was present. Patient was fatigued appearing and did have mild increased work of breathing noted at rest. He was flushed appearing in the face. He was alert and oriented x 3. Stated that he had mild abdominal cramping but no abdominal pain currently. He denied feeling short of breath currently but was not able to tell me whether he has had any shortness of breath on exertion. He was taking the Eliquis as normal until the ED visit 3 days ago. No lower extremity pain or swelling noted on exam. Given his worsening oxygen requirements with fairly benign chest x-ray and history of PE with therapeutic dosing of Eliquis along with persistent diarrhea of unclear etiology, decision was made to obtain CT chest abdomen pelvis with IV contrast. CT showed no PE, nodular densities in the right middle and right lower lobe which may resent atypical infection versus neoplastic/metastatic disease and no concerning intra-abdominal findings. Will be admitted for further management. Hospital Course: 1. Acute hypoxic respiratory failure secondary to COPD exacerbation with influenza A infection and superimposed bacterial pneumonia ? Pulmonology followed. Patient requiring 8 L high flow nasal cannula on admit to maintain appropriate oxygen saturations. Not on home oxygen. CTA chest showed no PE, did show nodular densities in the right middle and right lower lobes concerning for atypical infection versus metastatic disease. Positive for influenza A. Sputum culture grew both E. coli and Enterobacter. Continue treatment with DuoNebs as needed and p.o. steroids. Completed 7-day course of IV antibiotics on 01/17. Completed course of Tamiflu on 01/15. Weaned to 2 L nasal cannula by 01/17, continue to wean as able. 01/18/2025: He will need 2 L of oxygen with ambulation and at rest on discharge. He will be on prolonged steroids for his Keytruda induced colitis. I discussed with him and his the plan for discharge today they expressed understanding of the risks and benefits of going home and would like to go home today. 2. 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 GI following. Patient presented with worsening persistent diarrhea for 4 to 5 days prior to admission. Bicarb low at 17. CT abdomen pelvis on admit showed no concerning intra-abdominal findings. Infectious workup negative. Per GI, findings appear most consistent with Keytruda induced colitis. Planning for flexible sigmoidoscopy today, will follow-up result. Appreciate further GI recommendations. Continue to treat with steroids as noted above. 01/18/2025: Will need to follow-up with GI as an outpatient, will continue with 40 mg of prednisone p.o. daily for 30 days and then he will need to be on a taper. 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 Infectious workup was unremarkable on his stool studies. 3. Septic shock secondary to community-acquired pneumonia and Keytruda induced colitis, resolved ? Patient required transfer to the ICU early in admission for hypotension despite IV fluid resuscitation. Was able to be weaned off Levophed by 01/15 and transferred out of the ICU on 01/16. Continue treatment as above. 4. Metastatic renal cell carcinoma s/p left nephrectomy and non-small cell lung cancer on immunotherapy ? Follows with oncology, last office visit on 12/21. CT chest abdomen pelvis on admit with stable cancer findings. No inpatient needs, continue outpatient follow-up. 5. Acute on chronic debility ? PT/OT/case management following. Patient weaker than baseline secondary to acute issues as noted above. Planning for home with home health care on discharge. Chronic medical conditions: ? Class I obesity: BMI 33 on admit. Complicates hospital course, care and prognosis. ? History of CAD with stenting, hypertension, hyperlipidemia: Continue home rosuvastatin. ? GERD: Continue home PPI. ? History of DVT/PE: Continue home Eliquis 2.5 mg twice daily. Notably is on lower dose of Eliquis given history of excessive bruising and nosebleeds. Physical Exam Narrative General: Alert, Oriented x3, Cooperative, No apparent distress HEENT: Atraumatic, PERRLA, EOMI, Normocephalic Oral: Moist Mucosa Neck: Supple, No JVD Lungs: Diminished, Normal air movement, No rhonchi, No wheeze, No rales Cardiovascular: Regular rate, Regular Rhythm, Normal S1, Normal S2, No murmurs Abdomen: Soft, Non Tender, Non-Distended, No Hepato-splenomegaly Extremities: No edema, Capillary Refill Less than 3 Seconds Skin: No rashes, No breakdown Musculoskeletal: No Tenderness to Palpation of Joints or Extremities Neurological: No focal neurological deficits, Motor Exam 5/5 strength throughout, Sensory exam intact to light touch and pain Psych/Mental Status: Normal Affect, Appropriate Medical Records Data Medical Nutrition Assessment Dietitian: Malnutrition Criteria Met Start: 01/11/25 14:42 Freq: Status: Active Protocol: Document 01/14/25 14:49 RMA (Rec: 01/14/25 14:49 RMA [id number]) Nutrition Malnutrition Evidence of Yes Malnutrition Exists Malnutrition (severe Chronic ): Evidenced By Suboptimal Energy Intake (Severe),Weight Loss (Severe) Clinical Problem Chronic Disease or Condition Related Malnutrition Etiology severe related to flu and metastatic cancer; altered GI function/diarrhea Signs/Symptoms as evidenced by 17lbs (8%) unintentional weight loss in 1 month and PO intakes <75% of estimated nutrition needs for 1 month; NPO/clear and full liquids x 3-4 days Status Active Problem Recommendation Dietitian Recommend advance diet as tolerated to Transitional Recommendations/ with goal of regular diet as able. Changes Will order 120ml chocolate ensure plus HP 4x daily with medpass to provide supplemental energy if consumed. Additional ONS as diet advanced to solid food. Weight / BMI Weight Weight: 178 lb 12.718 oz Body Mass Index (BMI) 29.7 ABG / Lab / Microbiology Data 01/17/25 04:32 01/17/25 04:32 Laboratory: Laboratory Results - last 24 hr 01/18/25 05:40: Phosphorus 2.0 L, Magnesium 2.0 Microbiology: Microbiology 01/12/25 14:35 Blood Culture (Wb) - Left Forearm Blood Culture - Final No growth in 5 days. 01/12/25 14:35 Blood Culture (Wb) - Arm Left Blood Culture - Final No growth in 5 days. 01/12/25 01:40 Sputum, Expectorated/Coughed Gram Stain - Final 01/12/25 01:40 Sputum, Expectorated/Coughed Respiratory Culture - Final Escherichia coli Enterobacter cloacae complex 01/10/25 14:46 Mucosa - Nose SARS-CoV-2, Influenza & RSV (PCR) - Final Influenzae A 01/11/25 02:20 Stool Clostridioides difficile (PCR) - Final D/C Instructions Discharge Diet: No restrictions Call your doctor if you observe: Fever of 101 or Higher, Shortness of breath, Dizziness, Fainting spells, Swelling in the ankles, Chest pain and Increased palpitations (irregular heartbeat) DC O2, CPAP, BIPAP Needs PSN CPAP & BiPAP: BiPAP & CPAP Settings per PSN Mode AIRVO 01/13/25 07:55 Bipap Delivery Device Nasal Pillows 01/13/25 07:55 BiPAP Inspiratory Pressure 14 01/12/25 09:59 BiPAP Expiratory Pressure 6 01/12/25 09:59 BiPAP Rate 12 01/12/25 09:59 Fraction of Inspired Oxygen ( 48 01/17/25 16:41 FIO2) Total Flow Rate 45 01/13/25 07:55 Home O2 Discharge instructions: No Meaningful Use Info Meaningful Use Meaningful Use Diagnoses (Choose all that apply): None applicable Ischemic Stroke Statin Dosing Therapy Reference: STATIN DOSE THERAPY REFERENCE: * Patients > 75 years receive moderate or high dose statin therapy. * Patients 75 years or YOUNGER should receive HIGH intensity statin dose unless contraindicated. You will be required to document reason for non-treatment if statin daily dose does not meet guidelines. HIGH DOSE STATIN THERAPY DAILY Atorvastatin > than or = to 40 mg Rosuvastatin > than or = to 20 mg Amlodipine + Atorvastatin > than or = to 2.5/40 mg Ezetimibe + Simvastatin 10/80 mg Simvastatin 80mg Discharge Plan Admission Admit Date/Time: 01/10/25 13:50 Attending Provider: Evelio Hong Primary Care Provider: Jacob Jennings Consulting Providers: Chris Medina; Katlin Dwyer; Antwan Pitst Instructions Additional Instructions / Restrictions: Follow-up with your oncologist to discuss either the continuation or discontinuation of Keytruda based on your colitis diagnosis. Discharge Orders/Prescriptions Prescriptions: New prednisone 20 mg Tablet 40 mg PO BREAKFAST 30 Days Qty: 60 0RF Continued carvedilol 25 mg tablet 25 mg PO BID Rx Instructions: must administer with a meal/food albuterol sulfate 90 mcg/actuation HFA aerosol inhaler 1 puff inhalation Q6H PRN (Reason: SOB) amlodipine 10 mg tablet 10 mg PO DAILY Qty: 90 3RF omeprazole 20 mg capsule,delayed release(DR/EC) 20 mg PO QDAY acetaminophen 500 mg tablet 500 mg PO Q6H PRN (Reason: fever or pain) rosuvastatin [Crestor] 40 MG tablet 40 mg PO QHS Keytruda 25 mg/mL solution 200 mg IV .COMPLEX Rx Instructions: 200 mg intravenously; every 3 weeks, last dose 12/21/24 ondansetron 8 mg tablet,disintegrating 8 mg PO Q8H PRN (Reason: nausea and vomiting) Qty: 12 0RF hydralazine 50 mg tablet 50 mg PO BID Eliquis 5 mg tablet 2.5 mg PO BID Qty: 60 12RF ipratropium-albuterol 0.5 mg-3 mg(2.5 mg base)/3 mL solution for nebulization 3 ml inhalation Q4H PRN (Reason: shortness of breath or wheezing) Qty: 180 3RF Referrals / Follow Up: Jacob Jennings DO [Primary Care Provider] - Within 1 Week Angela Rodriguez MD [Med Staff - Active Staff] - Within 1 Month Michael Chambers DO [Med Staff - Active Staff] - Within 2 Weeks Disposition Disposition (needs filled in before D/C Order can be placed): Home Health Service Charges/Coding Visit Charges Inpatient E&M: 99297 Disch Hosp >30min
== END 2025-01-18 17:40 | disposition home health service (06) | DRG 393 ==
LOC: ED 13:02 → PCU 16:00 → ICU 01-12 00:25 → PCU 01-15 16:52
PROVIDERS: Family Medicine; Internal Medicine; Internal Medicine Gastroenterology; Admitting Provider Hospitalist; Emergency Provider Emergency Medicine; PCP Family Medicine; Visit Provider Family Medicine
PROC: 0DJD8ZZ Inspection of Lower Intestinal Tract, Via Natural or Artificial Opening Endoscopic (ICD-10-PCS; CPT 45330; principal; 2025-01-17 15:40)
DX: K52.1 Toxic gastroenteritis and colitis (principal); J96.01 Acute respiratory failure with hypoxia; R65.21 Severe sepsis with septic shock; A41.9 Sepsis, unspecified organism; G93.6 Cerebral edema; E43 Unspecified severe protein-calorie malnutrition; I50.33 Acute on chronic diastolic (congestive) heart failure; J10.08 Influenza due to other identified influenza virus with other specified pneumonia; J15.5 Pneumonia due to Escherichia coli; J15.69 Pneumonia due to other Gram-negative bacteria; C79.31 Secondary malignant neoplasm of brain; J44.1 Chronic obstructive pulmonary disease with (acute) exacerbation; C79.71 Secondary malignant neoplasm of right adrenal gland; C34.31 Malignant neoplasm of lower lobe, right bronchus or lung; N17.9 Acute kidney failure, unspecified; J44.0 Chronic obstructive pulmonary disease with (acute) lower respiratory infection; I11.0 Hypertensive heart disease with heart failure; D63.0 Anemia in neoplastic disease; Z68.33 Body mass index [BMI] 33.0-33.9, adult; G93.89 Other specified disorders of brain; I25.10 Atherosclerotic heart disease of native coronary artery without angina pectoris; E78.5 Hyperlipidemia, unspecified; K57.30 Diverticulosis of large intestine without perforation or abscess without bleeding; K21.9 Gastro-esophageal reflux disease without esophagitis; E87.6 Hypokalemia; E83.39 Other disorders of phosphorus metabolism; E66.811 Obesity, class 1; T45.1X5A Adverse effect of antineoplastic and immunosuppressive drugs, initial encounter; R53.81 Other malaise; Z66 Do not resuscitate; Z90.2 Acquired absence of lung [part of]; Z90.5 Acquired absence of kidney; Z95.5 Presence of coronary angioplasty implant and graft; Z79.01 Long term (current) use of anticoagulants; Z79.899 Other long term (current) drug therapy; Z86.16 Personal history of COVID-19; Z86.711 Personal history of pulmonary embolism; Z87.891 Personal history of nicotine dependence
CPT/HCPCS: 36415; 36591; 36600; 70450; 70470; 71045; 71260; 74177; 80048; 80053; 80076; 80202; 81001; 82040; 82247; 82803; 83630; 83735; 83880; 84075; 84100; 84145; 84155; 84450; 84460; 85025; 85027; 85610; 87040; 87070; 87077; 87186; 87205; 87493; 87506; 87631; 88305; 93005; 93306; 94002; 94640; 94660; 94668; 94762; 96360; 97116; 97162; 97166; 97530; 97535; 97802; 99285; Q9967; A4216; J1940; J2405

== ENCOUNTER 2025-03-21 09:45 | Inpatient (IN) | payer MEDICARE, OTHER, SELFPAY ==
[2025-03-21] VITALS (14 sets, daily range): BP systolic 98–117; BP diastolic 44–88; PULSE 78–88; RESP 16–27; TEMP 36.5–36.9; O2SAT 92–98; BMI 29.2; BMI 28.6
--- NOTE | 2025-03-21 09:50 | ED.VIS.GI ---
HPI HPI - GI History of Present Illness Chief Complaint: Nausea/Vomiting Informant: patient Abdominal Pain/Flank Pain Worsened by: Food Relieved by: Nothing Nausea/Vomiting/Emesis GI Symptom: Positive for Nausea and Vomiting Onset: Weeks (3) Diarrhea/Melena/Hematochezia GI Symptom: Negative for Diarrhea, Melena or Hematochezia Associated Symptoms Associated Symptoms: Negative for Dysuria, Frequency or Hematuria Narrative Narrative: Patient presents with nausea and vomiting that has been constant for the past 3 weeks. Patient states that anytime he tries to eat anything he throws it back up. Patient states he does not feel like he gets anything into his stomach. Patient states he starts to vomit whenever he tries to swallow. Patient denies any hematemesis or coffee-ground emesis. Patient states it is worse whenever he tries to eat. Patient states nothing seems to help with it. Patient denies any abdominal pain. Patient denies any chest pain or shortness of breath. Patient denies any diarrhea, melena, or hematochezia. Patient denies any urinary complaints. [facility] Medical History Acute infective gastroenteritis COPD exacerbation History of steroid therapy Low iron Seizures Shortness of breath on exertion History of pain when walking History of edema History of echocardiogram Cardiology follow-up encounter Cervical spinal cord injury Cervical stenosis of spine Numbness in right leg RUE numbness Diarrhea Hypokalemia Duodenal ulcer Anemia Diabetes mellitus, type 2 Hyperglycemia Hyponatremia Thrombocytopenia Pulmonary emboli COPD (chronic obstructive pulmonary disease) Imbalance Brain metastasis Pneumonia Sinus congestion Hx of radiation therapy Brain metastasis Frequent headaches Epistaxis Contact with or suspected exposure to other viral communicable disease Iron deficiency anemia due to chronic blood loss Encounter for immunotherapy Encounter for immunotherapy COVID-19 Nonrheumatic aortic (valve) stenosis with insufficiency Elevated troponin (05/15/21) Encephalopathy (05/15/21) Seizure (05/15/21) Metastatic renal cell carcinoma to lung Dyspnea Metastasis to adrenal gland Port-A-Cath in place Atherosclerotic heart disease of [place] coronary artery without angina pectoris Hyperlipidemia Wears glasses Wears dentures Gastric reflux Former smoker History of primary malignant neoplasm of left kidney 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 Skin cancer Abnormal colonoscopy Essential (primary) hypertension COPD (chronic obstructive pulmonary disease) Adenocarcinoma of right lung Home Medications ?Medication ?Instructions ?Recorded ?Last Taken ?Type rosuvastatin 40 mg tablet (Crestor) 40 mg PO QHS CHOLESTEROL 08/18/18 01/09/25 20:00 History 40 mg carvedilol 25 mg tablet 25 mg PO BID blood pressure 04/30/21 03/20/25 History albuterol sulfate 90 mcg/actuation 1 puff inhalation Q6H PRN SOB 05/31/21 06/12/21 History aerosol inhaler hydralazine 50 mg tablet 50 mg PO BID blood pressure 05/31/21 03/20/25 History apixaban 5 mg tablet (Eliquis) 2.5 mg (1/2 x 5 mg) PO BID #60 tabs 07/20/23 03/20/25 Rx amlodipine 10 mg tablet 10 mg PO DAILY #90 tabs 08/21/23 03/20/25 Rx ipratropium 0.5 mg-albuterol 3 mg 3 ml inhalation Q4H PRN shortness 09/07/23 Unknown Rx (2.5 mg base)/3 mL nebulization of breath or wheezing #180 mL soln omeprazole 20 mg capsule,delayed 20 mg PO DAILY acid steward/stewardess bath 06/09/24 03/20/25 History release pembrolizumab 25 mg/mL intravenous 200 mg IV Q21D 12/14/24 03/15/25 History solution (Keytruda) Allergy/AdvReac Type Severity Reaction Status Date / Time No Known Allergies Allergy Verified 03/21/25 09:45 Family History Sister Diabetes CAD (coronary artery disease) Mother CVA (cerebral vascular accident) CAD (coronary artery disease) Lung cancer Father CAD (coronary artery disease) Brother CAD (coronary artery disease) Surgical History H/O cervical discectomy History of cataract surgery History of lobectomy of lung History of nephrectomy, left History of coronary angioplasty (01/05/04) History of coronary artery stent placement (07/17/03) Social History household members: spouse Smoking Status: Former smoker Tobacco: How many years used: 40 second hand exposure: No alcohol intake: current alcohol intake frequency: a few times a month Alcohol type: beer substance use type: does not use seatbelt use: always do you feel safe at home: Yes ROS ROS ED Constitutional Constitutional ED: Denies chills or fever(s) Eyes Eyes: Denies blurry vision or change in vision ENT ENT ED: Reports sore throat; Denies rhinorrhea Cardiovascular Cardiovascular: Denies chest pain or palpitations Respiratory/Chest Respiratory/Chest: Denies cough or dyspnea Gastrointestinal Gastrointestinal: Reports nausea and vomiting; Denies abdominal pain, diarrhea or melena Genitourinary Genitourinary ED: Denies dysuria or hematuria Musculoskeletal Musculoskeletal: Denies back pain or neck pain Integumentary Denies abscess or rash Neurologic Neurologic: Denies headache(s) or weakness Allergic/Immunologic Allergic/Immunologic ED: Denies mouth swelling or urticaria EXAM Physical Exam Const Vital Signs: 03/21/25 09:45 03/21/25 09:47 03/21/25 11:45 Temperature 97.7 F L 97.7 F L Temperature Source Temporal Oral Pulse Rate 87 83 Respiratory Rate 24 H 20 H Blood Pressure 112/82 H 104/88 H 109/59 L Blood Pressure Mean 92 93 75 Pulse Ox 95 96 Oxygen Delivery Method Nasal Cannula Nasal Cannula Oxygen Flow Rate (L/min) 2 2 03/21/25 13:45 03/21/25 15:00 03/21/25 16:22 Temperature 98.2 F 98.2 F Temperature Source Oral Pulse Rate 83 85 Respiratory Rate 27 H 24 H Blood Pressure 108/57 L 100/55 L 98/44 L Blood Pressure Mean 74 70 62 Pulse Ox 92 94 92 Oxygen Delivery Method Nasal Cannula Room Air Oxygen Flow Rate (L/min) 03/21/25 16:30 Temperature Temperature Source Pulse Rate 78 Respiratory Rate 18 Blood Pressure Blood Pressure Mean Pulse Ox 93 Oxygen Delivery Method Nasal Cannula Oxygen Flow Rate (L/min) 2 Positive well nourished and well developed General Appearance ED: well developed and NAD HEENT Reports moist mucous membranes Neck supple and no JVD Resp normal respiratory effort Auscultation: wheezes expiratory wheezes and throughout Cardio regular rate and regular rhythm GI non-tender and non-distended Auscultation: normoactive bowel sounds Palpation: soft Neuro CN's II-XII intact bilaterally, moves all extremities and no sensory deficits noted Sensorium / Orientation: alert Motor Exam: strength 5/5 throughout Psych mental status grossly normal MDM MDM MDM Narrative Medical decision making narrative: Differential diagnosis includes bowel obstruction, perforation, dehydration, electrolyte abnormality, metastatic cancer, pancreatitis, and COPD exacerbation. CBC will be obtained to assess for leukocytosis or anemia. Comprehensive metabolic profile will be obtained to assess for hepatic function, renal function, and electrolyte abnormality. Lipase will be obtained to assess for pancreatitis. CT scan of the chest abdomen and pelvis will be obtained to assess for bowel obstruction, perforation, metastatic cancer, and pneumonia. History & Record Review Additional record(s) reviewed:: Prior outpatient record, Prior ED visit and Prior labs Lab Data Attestation: I reviewed the patient's lab results. Lab results narrative: CBC was reviewed. White blood cell count was slightly low at 3.9. Hemoglobin was 9.5 and hematocrit was 29.5. Platelets were normal. Comprehensive metabolic profile was reviewed. Sodium was slightly low at 132. CO2 was slightly low at 15.6. Anion gap was normal. BUN and creatinine were normal. Lipase was reviewed and was normal at 23. Labs: Laboratory Results - last 24 hr 03/21/25 03/21/25 03/21/25 10:23 10:23 10:53 WBC Cancelled 3.9 L Corrected WBC Cancelled RBC Cancelled 4.03 L Hgb Cancelled 9.5 L Hct Cancelled 29.5 L MCV Cancelled 73.2 L MCH Cancelled 23.6 L MCHC Cancelled 32.2 RDW Std Deviation Cancelled 47.2 H RDW Coeff of Kailey Cancelled 17.7 H Plt Count Cancelled 208 MPV Cancelled 8.8 Immature Gran % (Auto) Cancelled 1.300 H Neut % (Auto) Cancelled 57.3 Lymph % (Auto) Cancelled 19.8 Nobles % (Auto) Cancelled 14.1 H Eos % (Auto) Cancelled 6.7 H Baso % (Auto) Cancelled 0.8 Absolute Neuts (auto) Cancelled 2.2 Absolute Lymphs (auto) Cancelled 0.77 L Total Counted Cancelled Neutrophils % (Manual) Cancelled Band Neutrophils % Cancelled Lymphocytes % (Manual) Cancelled Monocytes % (Manual) Cancelled Eosinophils % (Manual) Cancelled Basophils % (Manual) Cancelled Metamyelocytes % Cancelled Myelocytes % Cancelled Promyelocytes % Cancelled Blast Cells % Cancelled Plasma Cell % (Manual) Cancelled Other Cells % Cancelled Nucleated RBC % Cancelled 0 Nucleated RBCs/100 WBC Cancelled Differential Comment Cancelled Diff Path Review Cancelled Hypersegmented Neuts Cancelled Atypical Lymphocytes Cancelled Reactive Lymphocytes Cancelled Smudge Cells Cancelled Toxic Granulation Cancelled Toxic Vacuolation Cancelled Dohle Bodies Cancelled Jessica Rods Cancelled Platelet Estimate Cancelled Plt Morphology Comment Cancelled RBC Morphology Cancelled Cancelled Polychromasia Cancelled Hypochromasia Cancelled Basophilic Stippling Cancelled Anisocytosis Cancelled Microcytosis Cancelled Macrocytosis Cancelled Spherocytes Cancelled Sickle Cells Cancelled Target Cells Cancelled Tear Drop Cells Cancelled Ovalocytes Cancelled Stomatocytes Cancelled [place] Bodies Cancelled Bingen Cells Cancelled Bite Cells Cancelled Crenated Cell Cancelled Acanthocytes (Spur) Cancelled Rouleaux Cancelled Schistocytes Cancelled Sodium 132 L Potassium 3.6 Chloride 101 Carbon Dioxide 15.6 L Anion Gap 15 BUN 14 Creatinine 0.89 Estim Creat Clear Calc 74.15 Est GFR (MDRD) Non-Af 91 BUN/Creatinine Ratio 15.5 Glucose 87 Calcium 8.3 Total Bilirubin 0.43 AST 17 ALT 6 Alkaline Phosphatase 62 Total Protein 4.9 L Albumin 2.9 L Globulin 2.0 L Albumin/Globulin Ratio 1.5 Lipase 23 Radiography Diagnostic Testing: Clinical Impression(s) from Imaging Studies Chest/Abdomen/Pelvis CT 03/21/25 10:03 IMPRESSION: New right pleural effusion with infiltration in both lungs worse on the right side as described. Status post left nephrectomy. Persistent masses in the right kidney. Reading Location: [facility] CT scan of the chest, abdomen, and pelvis was obtained. There is a new right pleural effusion with infiltrates in both lungs, worse on the right. There are persistent masses in the right kidney. All this was interpreted by the radiologist and was also independently reviewed by myself. Treatment and Re-Evaluation :: Patient was given IV fluids and Zofran. Patient was able to drink an Ensure shake. Patient ambulated here in the emergency department and his pulse oximeter dropped to 82% even on oxygen. Patient was started on Rocephin and Zithromax. Because of the desaturation, I recommended admission to the hospital. Case was discussed with the hospitalist. She will admit the patient to her service. Patient understood and was agreeable with the plan. All questions were answered. Discharge Plan Dx/Rx/DC Orders Clinical Impression: Pneumonia, Cancer of right kidney, Hypoxia, Dysphagia Disposition Disposition: Acute Care Hospital [facility]
--- NOTE | 2025-03-21 10:03 | CT_ITS ---
PROCEDURE: CT CHEST, ABD, PEL W/CONTRAST 03/21/2025 REASON FOR EXAM: NAUSEA VOMITING SHORTNESS OF BREATH History of metastatic lung cancer. Brain Mets. TECHNIQUE: Chest, abdomen and pelvis CT with intravenous contrast. Coronal and Sagittal reconstruction series were provided. One or more dose reduction techniques were used (e.g., Automated exposure control, adjustment of the mA and/or kV according to patient size, use of iterative reconstruction technique. PATIENT PREPARATION: Per protocol ORAL CONTRAST TYPE: None. CONTRAST: Isovue-300 VOLUME: 100mL RADIATION DOSE SUMMARY: CTDlvol: 14 mGy DLP: 1422.51 mGycm COMPARISON: Comparison is made with prior study dated January 10, 2025. FINDINGS: CT CHEST: Hardware: A right-sided port a catheter is seen with the tip in the superior vena cava. Lymph nodes: Stable slightly enlarged pretracheal lymph node. Mild enlargement of the bilateral hilar lymph nodes. Heart and Vasculature: Cardiomegaly. No pericardial effusion. Atherosclerotic calcifications of the thoracic aorta. Pulmonary arteries are unremarkable. Lungs and Airways: Small right pleural effusion with the infiltration in the right lower lobe. Patchy nodular infiltration in the left lower lobe. These are new as compared to prior study. No evidence of pulmonary embolism. bones: Degenerative changes of the thoracic spine. CT ABDOMEN/PELVIS: Liver: Normal size. No mass. Gallbladder: Unremarkable Spleen: Normal size. Pancreas: Normal size without evidence of mass surrounding inflammation or ductal dilation. Adrenals: Unremarkable Kidneys: Status post left nephrectomy. Persistent 3.2 cm x 3.5 cm heterogeneous mass in the inferior medial aspect of the right kidney. There is also evidence of a solid mass measuring 2.2 cm in the lateral aspect of the right kidney superiorly. Stable cyst in the peripheral lateral aspect of the lower pole of the right kidney. Bladder: Mild bladder distention. Prosthetic enlargement with indentation of the bladder base. Bowel: Colonic diverticulosis without diverticulitis. Appendix: The appendix is not identified. There is no inflammatory process identified in the right lower quadrant to suggest appendicitis. Lymph nodes: Unremarkable. Vasculature: Mild diffuse atherosclerotic calcifications are noted. Peritoneum / Retroperitoneum: Small volume free fluid in the pelvis nonspecific and usually physiologic in a female patient of this age. Bones: Degenerative changes of the spine. CT/CT Chest, Abd, Pel w/Contrast IMPRESSION: New right pleural effusion with infiltration in both lungs worse on the right s vitaly as described. Status post left nephrectomy. Persistent masses in the right kidney. Reading Location: [id number]
[2025-03-21] MEDS: 0.9% Normal Saline (1000mL) 1,000 ML 1000 ML IV (10:25)
[2025-03-21] MEDS: Ondansetron 4 MG/2 ML Vial IV (10:25)
[2025-03-21 11:00] LABS: Absolute Lymphocyte Count 0.77 X10^3/uL (0.83-4.51); Absolute Neutrophil Count 2.2 X10^3/uL (2.0-7.7); Basophil# 0.03 X10^3/uL; Basophil% 0.8 % (0-1); Eosinophil# 0.26 X10^3/uL; Eosinophils% 6.7 % (0-5); Hematocrit 29.5 % (40-54); Hemoglobin 9.5 g/dL (13.0-16.5); Lymphocyte # 0.77 X10^3/ul (0.83-4.51); Lymphocyte % 19.8 % (19-41); Mean Corp Hgb Conc 32.2 g/dL (32-36); Mean Corpuscular Hgb 23.6 pg (27.0-32.0); Mean Corpuscular Volume 73.2 fL (80-94); Mean Platelet Vol. 8.8 fl (6.2-12.0); Monocyte# 0.55 X10^3/uL; Monocyte% 14.1 % (0-10); NRBC Flagged by Analyzer 0 % (0-5); Neutrophil # 2.23 X10^3/uL (2.7-7.7); Neutrophil % 57.3 % (47-70); Platelet Count 208 K/mm3 (150-450); RBC Distribution Width CV 17.7 % (11.6-14.6); RBC Distribution Width SD 47.2 fl (35.1-43.9); Red Blood Count 4.03 M/mm3 (4.6-6.2); White Blood Count 3.9 K/mm3 (4.4-11.0)
[2025-03-21 12:40] LABS: EST Glomerular Filtration Rate 91 (>60)
[2025-03-21 13:41] LABS: ALB/GLOB Ratio 1.5 RATIO (0.9-2.4); AST(SGOT) 17 U/L (<=37); Alanine Aminotransfer ALT/SGPT 6 U/L (<=46); Albumin, Serum 2.9 g/dL (3.4-4.8); Alkaline Phosphatase 62 U/L (40-129); Anion Gap 15 (5-15); BUN 14 mg/dL (4-19); BUN/Creat Ratio 15.5 RATIO (10-20); Calcium,Total 8.3 mg/dL (7.6-11.0); Carbon Dioxide 15.6 mmol/L (21.0-32.0); Chloride 101 mmol/L (98-108); Creatinine, Serum 0.89 mg/dL (0.70-1.20); Estimated Creatinine Clearance 74.15 ml/min (50-250); Glucose 87 mg/dL (70-99); Lipase 23 U/L (13-75); Potassium 3.6 mmol/L (3.3-5.1); Protein, Total 4.9 g/dL (5.9-8.4); Sodium Level 132 mmol/L (133-145); Total Bilirubin 0.43 mg/dL (0.00-1.30)
[2025-03-21] MEDS: Ceftriaxone 2 GM in 0.9% Normal Saline (50mL MB+) 50 ML IV (16:19)
--- NOTE | 2025-03-21 16:47 | PCM.HP.STD ---
HPI - General General Date of Admission: 03/21/25 Date of Service: 03/21/25 Chief Complaint: Intractable N/V HPI Narrative The patient is a 69 y/o M w/ PMHx: Obesity, CKD stage II per previous GFR trending, Seizure disorder, Diabetes mellitus type 2, GERD with history of duodenal ulcer with history of previous GI bleed, Chronic headaches, COPD, Chronic thrombocytopenia,Hx CTE w/ DVT/PE, Chronic hyponatremia, Metastatic renal cell carcinoma to the lung status post left nephrectomy and lobectomy with metastatic disease including to the brain, CAD status post PCI, Former tobacco use, Chronic anemia who presents to the [facility] ED on 03/21/2025 with 3 weeks of persistent intermittent nausea and emesis with difficulty eating anything as symptoms worsened by any attempted food intake noting that when he even attempts to swallow it starts to come back up with no hematemesis or coffee-ground emesis and no specific abdominal pain but given debility, inability to appropriately hydrate or eat prompted ED evaluation. He also reports mild occasional cough but not markedly productive but he does feel more short of breath especially with exertion and has occasionally been wheezing. Workup in the ED included T97.7, heart rate 87, BP 112/82, respiratory rate 24, 95% on 2 L nasal cannula with most recent repeat assessment T98.2, heart rate 78, BP 98/44, respiratory rate 18, 93% on 2 L nasal cannula, CBC with WBC 3.9, hemoglobin 9.5, MCV 73.2, platelet 2 8 with increased immature granulocytes with lymphopenia, CMP with sodium 132, carbon dioxide 15.6, BUN/creatinine 14/0.89, GFR 91, not marked appearing hepatic profile, CT chest/abdomen/pelvis with contrast with a new right pleural effusion with infiltration in both lungs worse on the right side with persistent masses in the right kidney status post left nephrectomy, in the ED patient was able to eventually drink an Ensure following IV fluids and Zofran however when he was ambulated his pulse oximeter dropped to 82%. Patient administered IV Rocephin, azithromycin given concern for pneumonia. Upon hospitalist evaluation patient also noted wheezing thus patient also administered IV solumedrol 125 mg IV x 1 in the ED. [facility] Medical History Acute infective gastroenteritis COPD exacerbation History of steroid therapy Low iron Seizures Shortness of breath on exertion History of pain when walking History of edema History of echocardiogram Cardiology follow-up encounter Cervical spinal cord injury Cervical stenosis of spine Numbness in right leg RUE numbness Diarrhea Hypokalemia Duodenal ulcer Anemia Diabetes mellitus, type 2 Hyperglycemia Hyponatremia Thrombocytopenia Pulmonary emboli COPD (chronic obstructive pulmonary disease) Imbalance Brain metastasis Pneumonia Sinus congestion Hx of radiation therapy Brain metastasis Frequent headaches Epistaxis Contact with or suspected exposure to other viral communicable disease Iron deficiency anemia due to chronic blood loss Encounter for immunotherapy Encounter for immunotherapy COVID-19 Nonrheumatic aortic (valve) stenosis with insufficiency Elevated troponin (05/15/21) Encephalopathy (05/15/21) Seizure (05/15/21) Metastatic renal cell carcinoma to lung Dyspnea Metastasis to adrenal gland Port-A-Cath in place Atherosclerotic heart disease of [place] coronary artery without angina pectoris Hyperlipidemia Wears glasses Wears dentures Gastric reflux Former smoker History of primary malignant neoplasm of left kidney 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 Skin cancer Abnormal colonoscopy Essential (primary) hypertension COPD (chronic obstructive pulmonary disease) Adenocarcinoma of right lung Home Medications ?Medication ?Instructions ?Recorded ?Last Taken ?Type rosuvastatin 40 mg tablet (Crestor) 40 mg PO QHS CHOLESTEROL 08/18/18 01/09/25 20:00 History 40 mg carvedilol 25 mg tablet 25 mg PO BID blood pressure 04/30/21 03/20/25 History albuterol sulfate 90 mcg/actuation 1 puff inhalation Q6H PRN SOB 05/31/21 06/12/21 History aerosol inhaler hydralazine 50 mg tablet 50 mg PO BID blood pressure 05/31/21 03/20/25 History apixaban 5 mg tablet (Eliquis) 2.5 mg (1/2 x 5 mg) PO BID #60 tabs 07/20/23 03/20/25 Rx amlodipine 10 mg tablet 10 mg PO DAILY #90 tabs 08/21/23 03/20/25 Rx ipratropium 0.5 mg-albuterol 3 mg 3 ml inhalation Q4H PRN shortness 09/07/23 Unknown Rx (2.5 mg base)/3 mL nebulization of breath or wheezing #180 mL soln omeprazole 20 mg capsule,delayed 20 mg PO DAILY acid transportation modeler 06/09/24 03/20/25 History release pembrolizumab 25 mg/mL intravenous 200 mg IV Q21D 12/14/24 03/15/25 History solution (Keytruda) Allergy/AdvReac Type Severity Reaction Status Date / Time No Known Allergies Allergy Verified 03/21/25 09:45 Family History Sister Diabetes CAD (coronary artery disease) Mother CVA (cerebral vascular accident) CAD (coronary artery disease) Lung cancer Father CAD (coronary artery disease) Brother CAD (coronary artery disease) Surgical History H/O cervical discectomy History of cataract surgery History of lobectomy of lung History of nephrectomy, left History of coronary angioplasty (01/05/04) History of coronary artery stent placement (07/17/03) Social History household members: spouse Smoking Status: Former smoker Tobacco: How many years used: 40 second hand exposure: No alcohol intake: current alcohol intake frequency: a few times a month Alcohol type: beer substance use type: does not use seatbelt use: always do you feel safe at home: Yes ROS ROS Narrative Admission Review of Systems: CONSTITUTIONAL: No weight loss, fever, chills, +weakness or fatigue. HEENT: Eyes: No visual loss, blurred vision, double vision or yellow sclerae. Ears, Nose, Throat: No hearing loss, sneezing, congestion, rhinorrhea. SKIN: No rash or itching, lesions, wounds except + very staged ecchymoses, abrasion, bilateral lower extremity venous stasis skin changes CARDIOVASCULAR: No chest pain, chest pressure or chest discomfort, palpitations, edema, orthopnea, syncopal events. RESPIRATORY: + Persistent not markedly productive cough, dyspnea, wheezing. No hemoptysis. GASTROINTESTINAL: + Anorexia, intractable nausea and emesis with any oral intake attempts, mild generalized abdominal discomfort with palpation but no rebound or guarding. No diarrhea, constipation, melena, BRBPR. GENITOURINARY: No dysuria, frequency, urgency or retention. NEUROLOGICAL: No headache, dizziness, syncope, paralysis, ataxia, numbness or tingling in the extremities, focal weakness, change in bowel or bladder control, seizure. MUSCULOSKELETAL: + muscle, back pain, joint pain or stiffness. HEMATOLOGIC: + Chronic anemia, easy bleeding/bruising. LYMPHATICS: No enlarged nodes. No history of splenectomy. PSYCHIATRIC: No history of depression or anxiety. ENDOCRINOLOGIC: No reports of sweating, cold or heat intolerance. No polyuria or polydipsia. ALLERGIES: + History of allergic rhinitis. Vital Signs Vital Signs Vital Signs: 03/21/25 09:45 03/21/25 09:47 03/21/25 11:45 Temperature 97.7 F L 97.7 F L Temperature Source Temporal Oral Pulse Rate 87 83 Respiratory Rate 24 H 20 H Blood Pressure 112/82 H 104/88 H 109/59 L Blood Pressure Mean 92 93 75 Pulse Ox 95 96 Oxygen Delivery Method Nasal Cannula Nasal Cannula Oxygen Flow Rate (L/min) 2 2 03/21/25 13:45 03/21/25 15:00 03/21/25 16:22 Temperature 98.2 F 98.2 F Temperature Source Oral Pulse Rate 83 85 Respiratory Rate 27 H 24 H Blood Pressure 108/57 L 100/55 L 98/44 L Blood Pressure Mean 74 70 62 Pulse Ox 92 94 92 Oxygen Delivery Method Nasal Cannula Room Air Oxygen Flow Rate (L/min) 03/21/25 16:30 Temperature Temperature Source Pulse Rate 78 Respiratory Rate 18 Blood Pressure Blood Pressure Mean Pulse Ox 93 Oxygen Delivery Method Nasal Cannula Oxygen Flow Rate (L/min) 2 Weight Weight: 176 lb 2.389 oz Body Mass Index (BMI) 29.2 Physical Exam Narrative Physical Examination: General: Awake, alert, oriented x 3 and cooperative, seated upright in the ED bed, fatigued appearing, mildly increased RR but no distress. Skin: Normal color, normal turgor, no icterus, no cyanosis except occasional stage ecchymoses, abrasions. HEENT: AT/NC, EOMI, PERRLA, mildly dry MM, no carotid bruits or JVD noted. Lungs: Diminished, greater bases, R> L, mildly increased respiratory rate but no distress, anterior expiratory wheezing bilaterally, mildly rhonchorous left base, no marked rales. Heart: Regular rate and rhythm; no gallop, rub audible. Abdomen: Soft, mild generalized diffuse tenderness with no rebound or guarding, no marked distention, mildly hyperactive BS, no appreciated HSM. Extremities: No cyanosis, clubbing, or edema. Neurological: Patient awake, alert, oriented as noted, cognitive function intact; pupils equally reactive to light and accommodation, cranial nerves grossly normal, moving all 4 extremities, no focal deficits, strength moderately to severely globally decreased secondary to acute presentation and complicated by underlying comorbidities Psychiatric: Affect appears flat, fatigued, no evidence of respiratory distress, no acute evidence of depressive or anxiety feelings. Results Lab / Micro Data 03/21/25 10:53 03/21/25 10:23 Labs: Laboratory Results - last 24 hr 03/21/25 10:23: WBC Cancelled, Corrected WBC Cancelled, RBC Cancelled, Hgb Cancelled, Hct Cancelled, MCV Cancelled, MCH Cancelled, MCHC Cancelled, RDW Std Deviation Cancelled, RDW Coeff of Kailey Cancelled, Plt Count Cancelled, MPV Cancelled, Immature Gran % (Auto) Cancelled, Neut % (Auto) Cancelled, Lymph % (Auto) Cancelled, Canyon % (Auto) Cancelled, Eos % (Auto) Cancelled, Baso % (Auto) Cancelled, Absolute Neuts (auto) Cancelled, Absolute Lymphs (auto) Cancelled, Total Counted Cancelled, Neutrophils % (Manual) Cancelled, Band Neutrophils % Cancelled, Lymphocytes % (Manual) Cancelled, Monocytes % (Manual) Cancelled, Eosinophils % (Manual) Cancelled, Basophils % (Manual) Cancelled, Metamyelocytes % Cancelled, Myelocytes % Cancelled, Promyelocytes % Cancelled, Blast Cells % Cancelled, Plasma Cell % (Manual) Cancelled, Other Cells % Cancelled, Nucleated RBC % Cancelled, Nucleated RBCs/100 WBC Cancelled, Differential Comment Cancelled, Diff Path Review Cancelled, Hypersegmented Neuts Cancelled, Atypical Lymphocytes Cancelled, Reactive Lymphocytes Cancelled, Smudge Cells Cancelled, Toxic Granulation Cancelled, Toxic Vacuolation Cancelled, Dohle Bodies Cancelled, Jessica Rods Cancelled, Platelet Estimate Cancelled, Plt Morphology Comment Cancelled, RBC Morphology Cancelled 03/21/25 10:23: RBC Morphology Cancelled, Polychromasia Cancelled, Hypochromasia Cancelled, Basophilic Stippling Cancelled, Anisocytosis Cancelled, Microcytosis Cancelled, Macrocytosis Cancelled, Spherocytes Cancelled, Sickle Cells Cancelled, Target Cells Cancelled, Tear Drop Cells Cancelled, Ovalocytes Cancelled, Stomatocytes Cancelled, Foster-Cecil-Bishop Bodies Cancelled, Sedan Cells Cancelled, Bite Cells Cancelled, Crenated Cell Cancelled, Acanthocytes (Spur) Cancelled, Rouleaux Cancelled, Schistocytes Cancelled, Sodium 132 L, Potassium 3.6, Chloride 101, Carbon Dioxide 15.6 L, Anion Gap 15, BUN 14, Creatinine 0.89, Estim Creat Clear Calc 74.15, Est GFR (MDRD) Non-Af 91, BUN/Creatinine Ratio 15.5, Glucose 87, Calcium 8.3, Total Bilirubin 0.43, AST 17, ALT 6, Alkaline Phosphatase 62, Total Protein 4.9 L, Albumin 2.9 L, Globulin 2.0 L, Albumin/Globulin Ratio 1.5, Lipase 23 03/21/25 10:53: WBC 3.9 L, RBC 4.03 L, Hgb 9.5 L, Hct 29.5 L, MCV 73.2 L, MCH 23.6 L, MCHC 32.2, RDW Std Deviation 47.2 H, RDW Coeff of Kailey 17.7 H, Plt Count 208, MPV 8.8, Immature Gran % (Auto) 1.300 H, Neut % (Auto) 57.3, Lymph % (Auto) 19.8, Canyon % (Auto) 14.1 H, Eos % (Auto) 6.7 H, Baso % (Auto) 0.8, Absolute Neuts (auto) 2.2, Absolute Lymphs (auto) 0.77 L, Nucleated RBC % 0 Imaging Radiology Impression Chest/Abdomen/Pelvis CT 03/21/25 10:03 IMPRESSION: New right pleural effusion with infiltration in both lungs worse on the right side as described. Status post left nephrectomy. Persistent masses in the right kidney. Reading Location: [id number] Assessment & Plan Assessment/Plan (1) Pneumonia: (2) Hypoxia: (3) Dysphagia: PLAN: Plan The patient is a 69 y/o M w/ PMHx: Obesity, CKD stage II per previous GFR trending, Seizure disorder, Diabetes mellitus type 2, GERD with history of duodenal ulcer with history of previous GI bleed, Chronic headaches, COPD, Chronic thrombocytopenia,Hx CTE w/ DVT/PE, Chronic hyponatremia, Metastatic renal cell carcinoma to the lung status post left nephrectomy and lobectomy with metastatic disease including to the brain, CAD status post PCI, Former tobacco use, Chronic anemia who presents to the [facility] ED on 03/21/2025 with 3 weeks of persistent intermittent nausea and emesis with difficulty eating anything as symptoms worsened by any attempted food intake noting that when he even attempts to swallow it starts to come back up with no hematemesis or coffee-ground emesis and no specific abdominal pain but given debility, inability to appropriately hydrate or eat prompted ED evaluation. #1. Acute hypoxia secondary to LL Pneumonia, Possible GP/GN organisms given recent hospitalization history and Acute on Chronic COPD Exacerbation: Will admit to [facility], maintain on oxygen with wean as tolerated to room air, continue ATC duonebs, PRN albuterol, maintain on IV solumedrol, maintain on IV Zosyn and Vancomycin w/ MRS screen requested, HOB, IS parameters w/ pending sputum cultures and urine antigens. PT/OT/CM consulted for discharge planning. #2. Intractable N/V, unclear etiology with associated worsening severe protein calorie malnutrition especially given underlying disease history as noted: Given persistent ongoing difficulty with intake with emesis with any oral intake attempts although he states in the ED he was able to drink a liquid protein will maintain on clear liquids with IV PPI, monitor oral intake, as needed antiemetic regimen, nutrition consulted for recommendations given concern for malnutrition given significant length of time without appropriate nutrition, will consult GI especially given metastatic cancer history despite there being no findings on CT imaging still some concerns. #3. Acute on chronic hyponatremia, suspected component hypovolemia poor oral intake ability: Admission sodium 132, chloride 101, more recent values have been in normal range, will continue judiciously hydrate and repeat CMP in AM. #4. Chronic Kidney Disease Stage II per GFR trending: Admission BUN/Cr 14/0.89, GFR 91, baseline renal function primarily 0.9-1.2, repeat BMP in AM. #5. Chronic microcytic anemia: Admission hemoglobin 9.5, MCV 73.2, baseline hemoglobin primarily 10-11 although most recently 03/15/2025 hemoglobin 10, continue to trend and if any concerns arise about further decreasing levels may need to hold NOAC and obtain guaiac. #6. Hypertension: Continue home regimen including Coreg, hydralazine, amlodipine with hold parameters as needed, PRN hydralazine. #7. Hyperlipidemia: We will continue patient on statin therapy. #8. CAD: Status post previous PCI, will continue patient apixaban cautiously, statin, Coreg, not on XIN inhibitor/ARB. #9. History of VTE: Patient with history of previous DVT, PE, continue patient chronic Eliquis regimen cautiously. #10. History of metastatic renal cell carcinoma, history of brain tumor unclear if this was metastatic or not with associated previous seizure history: Patient with history of metastatic renal cell carcinoma status post left nephrectomy with metastatic disease to the lung status post also lobectomy, chart history of questionable some type of brain tumor but uncertain if this was metastatic and unclear previous interventions, currently per record maintained outpatient on Keytruda, encourage continued outpatient follow-up with oncology as previously arranged. Mag and Phos requested. #11. GERD with history of duodenal ulcer disease status post previous GI bleed: We will continue patient on PPI, currently placed on IV version until oral intake improved especially given intractable nausea and emesis #12. Former tobacco use: Encourage continued tobacco cessation. #13. DVT prophylaxis: Continue patient on apixaban regimen. #14. CODE status: Patient does not have healthcare power of inside sales consultant or living will in place but he notes his who is present would be his medical decision-maker if necessary. Discussed CODE status at length including difference between FULL code, DNR-CCA and DNR-CC status. Following discussions about the differences in these status, requested DNR-CCA, no intubation. Charges/Coding Visit Charges Inpatient E&M: 40363 Init Hosp L3
[2025-03-21] MEDS: Azithromycin 500 MG in 0.9% Normal Saline (250mL Bag) 250 ML 255 MG IV (17:10)
[2025-03-21] MEDS: MethylPREDNISolone 125 MG/2 ML Vial IV (17:31)
--- NOTE | 2025-03-21 17:45 | CASEMGMT ---
Care Management Face to Face with patient for initial transition planning/care coordination assessment in the ED.? This comic book writer introduced self and role at [facility]. Patient alert and oriented. Patient willing to participate in assessment and is able to answer all questions appropriately.? Care providers, pharmacy, and demographics verified. Admitting Diagnosis: Cancer of right kidney Other diagnosis history: ?COPD, anemia, Type 2 diabetes, hypertension PCP: ?Dick Specialists: Michael Preferred Pharmacy: [facility] Insurance: Medicare Prescription Benefit: yes Living Will/HPOA: ?has a HPOA on file LNOK: Living Arrangements: ?patient lives with spouse in a split level home, 2 steps to enter, 5 steps inside Transportation: ? DME: ?patient has O2 through [employer], is on 2 L HHC: ?has had HH previously SNF/Rehab: ?none Community Resources: ?none Behavioral Health History: ?none Patient goals: Patient wishes to discharge home. Disposition Plan: admission to acute; RN CM/SW to follow for discharge planning needs that may arise. Marilee Marley, MARKETING STRATEGY LEAD, SAMPLE BODY BUILDER
[2025-03-21] MEDS: 0.9% Normal Saline (1000mL) 1,000 ML 100 ML IV (18:23)
[2025-03-21 18:31] LABS: Magnesium 1.7 mg/dL (1.5-2.2); Phosphorus 3.9 mg/dL (2.7-4.5)
[2025-03-21] MEDS: Vancomycin HCl 2,000 MG in 0.9% Normal Saline (500mL Bag) 500 ML 250 MG IV (19:33)
--- NOTE | 2025-03-21 19:39 | PCM.RX.CS ---
Consult Antibiotic Management Pharmacy has been consulted to manage selected antibiotic: Vancomycin Type of Intervention Type of Consult: New start Suspected Infection Suspected Infection: Pneumonia Labs Labs: Sodium 132 mmol/L (133-145) L 03/21/25 10:23 Potassium 3.6 mmol/L (3.3-5.1) 03/21/25 10:23 Chloride 101 mmol/L (98-108) 03/21/25 10:23 Carbon Dioxide 15.6 mmol/L (21.0-32.0) L 03/21/25 10:23 Anion Gap 15 (5-15) 03/21/25 10:23 BUN 14 mg/dL (4-19) 03/21/25 10:23 Creatinine 0.89 mg/dL (0.70-1.20) 03/21/25 10:23 Est GFR (MDRD) Non-Af 91 (>60) 03/21/25 10:23 BUN/Creatinine Ratio 15.5 RATIO (10-20) 03/21/25 10:23 Glucose 87 mg/dL (70-99) 03/21/25 10:23 Dosing Weight Weight used for dosin kg Estimated Creatinine Clearance Estimated Creatinine Clearance: 74 ML/MIN Goal Trough Goal Trough: 15-20 mcg/mL Pharmacy Plan for Drug Dosing Pharmacy Plan for Drug Dosing: Give load dose of 2000mg IV x1, then continue with 1000mg q12h per [facility] dosing protocol. Check a trough before the 4th total dose. Pharmacy Service will continue to monitor and adjust dosing as required. Follow-Up Labs Follow-Up Labs: Trough: Vancomycin Date/Time Labs Ordered Labs to be done on [date and time ordered]: 03/23/25 07:30
[2025-03-21] MEDS: Albuterol 2.5 MG/3 ML VIAL.NEB. INHALATION (20:57)
--- NOTE | 2025-03-21 21:08 | EX.PCM.CON.G ---
HPI Consult Data Date of Consult: 03/21/25 HPI Narrative Reason for Consultation: Intractable nausea and vomiting HPI Narrative: KENN IRAHETA, is a 69 M who presented to the ED with nausea and vomiting that has been constant for the past 3 weeks. He states that anytime he tries to eat anything he throws it back up. Patient states he does not feel like he gets anything into his stomach. Patient states he starts to vomit whenever he tries to swallow. Patient denies any hematemesis or coffee-ground emesis. Patient states it is worse whenever he tries to eat. Patient states nothing seems to help with it. I got to know him back in 2022 for nausea, vomiting and hematemesis. He underwent an EGD: EGD 05.04.23 Z-line irregular, 38 cm from the incisors. Medium-sized hiatal hernia. Congestive gastropathy. Enlarged gastric folds. Blood in the second portion of the duodenum. Multiple non-obstructing oozing duodenal ulcers with adherent clot. There is no evidence of perforation. Biopsied. Multiple oozing duodenal ulcers with a visible vessel. Injected. One non-bleeding duodenal ulcer with pigmented material. Treated with a heater probe. I saw him back in the office for iron deficiency anemia and need for multiple blood transfusions. He underwent a capsule endoscopy: Pill Cam 11.29.24 two angiodysplatic lesions in the small bowel with bleeding stigmata. Recommends deep enteroscopy pt referred for deep enteroscopy, pt refused. I saw him back in the hospital in January of this year for immunotherapy induced colitis. He underwent a sigmoidoscopy. Sigmoidoscopy 01.17.25 revealed immunotherapy induced colitis confirmed by biopsies and he was started on steroids. I saw him back in clinic on 02/16/2025. OV 02.16.25 pt reports that he is feeling well and denies GI symptoms of concern at this time. pt reports since scope has been having normal bm. During this visit he has intractable nausea vomiting and was discovered to have left lower lobe pneumonia and is being currently treated for that. I was consulted to today intractable nausea vomiting. [facility] Medical History Acute infective gastroenteritis COPD exacerbation History of steroid therapy Low iron Seizures Shortness of breath on exertion History of pain when walking History of edema History of echocardiogram Cardiology follow-up encounter Cervical spinal cord injury Cervical stenosis of spine Numbness in right leg RUE numbness Diarrhea Hypokalemia Duodenal ulcer Anemia Diabetes mellitus, type 2 Hyperglycemia Hyponatremia Thrombocytopenia Pulmonary emboli COPD (chronic obstructive pulmonary disease) Imbalance Brain metastasis Pneumonia Sinus congestion Hx of radiation therapy Brain metastasis Frequent headaches Epistaxis Contact with or suspected exposure to other viral communicable disease Iron deficiency anemia due to chronic blood loss Encounter for immunotherapy Encounter for immunotherapy COVID-19 Nonrheumatic aortic (valve) stenosis with insufficiency Elevated troponin (05/15/21) Encephalopathy (05/15/21) Seizure (05/15/21) Metastatic renal cell carcinoma to lung Dyspnea Metastasis to adrenal gland Port-A-Cath in place Atherosclerotic heart disease of [place] coronary artery without angina pectoris Hyperlipidemia Wears glasses Wears dentures Gastric reflux Former smoker History of primary malignant neoplasm of left kidney 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 Skin cancer Abnormal colonoscopy Essential (primary) hypertension COPD (chronic obstructive pulmonary disease) Adenocarcinoma of right lung Home Medications ?Medication ?Instructions ?Recorded ?Last Taken ?Type rosuvastatin 40 mg tablet (Crestor) 40 mg PO QHS CHOLESTEROL 08/18/18 01/09/25 20:00 History 40 mg carvedilol 25 mg tablet 25 mg PO BID blood pressure 04/30/21 03/20/25 History albuterol sulfate 90 mcg/actuation 1 puff inhalation Q6H PRN SOB 05/31/21 06/12/21 History aerosol inhaler hydralazine 50 mg tablet 50 mg PO BID blood pressure 05/31/21 03/20/25 History apixaban 5 mg tablet (Eliquis) 2.5 mg (1/2 x 5 mg) PO BID #60 tabs 07/20/23 03/20/25 Rx amlodipine 10 mg tablet 10 mg PO DAILY #90 tabs 08/21/23 03/20/25 Rx ipratropium 0.5 mg-albuterol 3 mg 3 ml inhalation Q4H PRN shortness 09/07/23 Unknown Rx (2.5 mg base)/3 mL nebulization of breath or wheezing #180 mL soln omeprazole 20 mg capsule,delayed 20 mg PO DAILY acid pattern weaver 06/09/24 03/20/25 History release pembrolizumab 25 mg/mL intravenous 200 mg IV Q21D 12/14/24 03/15/25 History solution (Keytruda) Allergy/AdvReac Type Severity Reaction Status Date / Time No Known Allergies Allergy Verified 03/21/25 09:45 Family History Sister Diabetes CAD (coronary artery disease) Mother CVA (cerebral vascular accident) CAD (coronary artery disease) Lung cancer Father CAD (coronary artery disease) Brother CAD (coronary artery disease) Surgical History H/O cervical discectomy History of cataract surgery History of lobectomy of lung History of nephrectomy, left History of coronary angioplasty (01/05/04) History of coronary artery stent placement (07/17/03) Social History household members: spouse Smoking Status: Former smoker Tobacco: How many years used: 40 second hand exposure: No alcohol intake: current alcohol intake frequency: a few times a month Alcohol type: beer substance use type: does not use seatbelt use: always do you feel safe at home: Yes ROS Constitutional Constitutional: Denies fatigue, fever(s), poor appetite, weight gain or weight loss Gastrointestinal Gastrointestinal: Denies belching, bloating, change in bowel habits, change in stool character, chewing difficulty, coffee ground emesis, constipation, cramping, diarrhea, dyspepsia, dysphagia, early satiety, excessive flatus, fecal incontinence, heartburn, hematemesis, hematochezia, hemorrhoids, loose stools, melena, nausea, odynophagia, rectal bleeding, tenesmus, vomiting or weight changes Physical Exam Const alert, oriented x3, no apparent distress and healthy appearing General Appearance: cooperative GI normal to inspection, nondistended, normoactive bowel sounds, soft to palpation, non-tender and non-distended Percussion: normal to percussion Rectal Exam: deferred Lab / Micro Data 03/21/25 10:53 03/21/25 10:23 Labs: Laboratory Results - last 24 hr 03/21/25 10:23: WBC Cancelled, Corrected WBC Cancelled, RBC Cancelled, Hgb Cancelled, Hct Cancelled, MCV Cancelled, MCH Cancelled, MCHC Cancelled, RDW Std Deviation Cancelled, RDW Coeff of Kailey Cancelled, Plt Count Cancelled, MPV Cancelled, Immature Gran % (Auto) Cancelled, Neut % (Auto) Cancelled, Lymph % (Auto) Cancelled, [place] % (Auto) Cancelled, Eos % (Auto) Cancelled, Baso % (Auto) Cancelled, Absolute Neuts (auto) Cancelled, Absolute Lymphs (auto) Cancelled, Total Counted Cancelled, Neutrophils % (Manual) Cancelled, Band Neutrophils % Cancelled, Lymphocytes % (Manual) Cancelled, Monocytes % (Manual) Cancelled, Eosinophils % (Manual) Cancelled, Basophils % (Manual) Cancelled, Metamyelocytes % Cancelled, Myelocytes % Cancelled, Promyelocytes % Cancelled, Blast Cells % Cancelled, Plasma Cell % (Manual) Cancelled, Other Cells % Cancelled, Nucleated RBC % Cancelled, Nucleated RBCs/100 WBC Cancelled, Differential Comment Cancelled, Diff Path Review Cancelled, Hypersegmented Neuts Cancelled, Atypical Lymphocytes Cancelled, Reactive Lymphocytes Cancelled, Smudge Cells Cancelled, Toxic Granulation Cancelled, Toxic Vacuolation Cancelled, Dohle Bodies Cancelled, Jessica Rods Cancelled, Platelet Estimate Cancelled, Plt Morphology Comment Cancelled, RBC Morphology Cancelled 03/21/25 10:23: RBC Morphology Cancelled, Polychromasia Cancelled, Hypochromasia Cancelled, Basophilic Stippling Cancelled, Anisocytosis Cancelled, Microcytosis Cancelled, Macrocytosis Cancelled, Spherocytes Cancelled, Sickle Cells Cancelled, Target Cells Cancelled, Tear Drop Cells Cancelled, Ovalocytes Cancelled, Stomatocytes Cancelled, [place] Bodies Cancelled, Kezia Cells Cancelled, Bite Cells Cancelled, Crenated Cell Cancelled, Acanthocytes (Spur) Cancelled, Rouleaux Cancelled, Schistocytes Cancelled, Sodium 132 L, Potassium 3.6, Chloride 101, Carbon Dioxide 15.6 L, Anion Gap 15, BUN 14, Creatinine 0.89, Estim Creat Clear Calc 74.15, Est GFR (MDRD) Non-Af 91, BUN/Creatinine Ratio 15.5, Glucose 87, Calcium 8.3, Phosphorus 3.9, Magnesium 1.7, Total Bilirubin 0.43, AST 17, ALT 6, Alkaline Phosphatase 62, Total Protein 4.9 L, Albumin 2.9 L, Globulin 2.0 L, Albumin/Globulin Ratio 1.5, Lipase 23 03/21/25 10:53: WBC 3.9 L, RBC 4.03 L, Hgb 9.5 L, Hct 29.5 L, MCV 73.2 L, MCH 23.6 L, MCHC 32.2, RDW Std Deviation 47.2 H, RDW Coeff of Kailey 17.7 H, Plt Count 208, MPV 8.8, Immature Gran % (Auto) 1.300 H, Neut % (Auto) 57.3, Lymph % (Auto) 19.8, [place] % (Auto) 14.1 H, Eos % (Auto) 6.7 H, Baso % (Auto) 0.8, Absolute Neuts (auto) 2.2, Absolute Lymphs (auto) 0.77 L, Nucleated RBC % 0 Micro: Microbiology 03/21/25 19:46 Urine, Clean Catch Legionella Antigen - Final 03/21/25 19:46 Urine, Clean Catch Streptococcus pneumoniae Antigen (M - Final Imaging Radiology Impression Chest/Abdomen/Pelvis CT 03/21/25 10:03 IMPRESSION: New right pleural effusion with infiltration in both lungs worse on the right side as described. Status post left nephrectomy. Persistent masses in the right kidney. Reading Location: [id number]
[2025-03-21] MEDS: 0.9% Saline Lock 10 ML Syringe IV (22:19)
[2025-03-21] MEDS: Pantoprazole Sodium 40 MG in 0.9% Normal Saline (100mL MB+) 100 ML 330 MG IV (22:21)
[2025-03-21] MEDS: APIXABAN 2.5 MG TABLET (WCH) PO (22:24)
[2025-03-21] MEDS: Atorvastatin Calcium 80 MG Tablet PO (22:24)
[2025-03-21] MEDS: hydrALAZINE 50 MG Tablet PO (22:24)
[2025-03-21] MEDS: 0.9% Normal Saline (250mL Bag) 250 ML 15 ML IV (22:57)
[2025-03-21] MEDS: Piperacil/Tazobactam 3.375 GM in 0.9% Normal Saline (50mL MB+) 50 ML IV (22:57)
[2025-03-22] VITALS (18 sets, daily range): BP systolic 87–125; BP diastolic 47–94; PULSE 75–89; RESP 15–24; TEMP 36.3–36.7; O2SAT 92–100; BMI 28.9; BMI 28.6
[2025-03-22] MEDS: Piperacil/Tazobactam 3.375 GM in 0.9% Normal Saline (50mL MB+) 50 ML IV ×3 (05:26→21:51)
[2025-03-22] MEDS: Albuterol 2.5 MG/3 ML VIAL.NEB. INHALATION ×2 (05:43→07:36)
[2025-03-22 06:20] LABS: Absolute Lymphocyte Count 0.38 X10^3/uL (0.83-4.51); Absolute Neutrophil Count 1.7 X10^3/uL (2.0-7.7); Basophil# 0.01 X10^3/uL; Basophil% 0.5 % (0-1); Hematocrit 30.6 % (40-54); Hemoglobin 9.9 g/dL (13.0-16.5); Lymphocyte # 0.38 X10^3/ul (0.83-4.51); Lymphocyte % 17.3 % (19-41); Mean Corp Hgb Conc 32.4 g/dL (32-36); Mean Corpuscular Volume 74.1 fL (80-94); Monocyte# 0.05 X10^3/uL; Monocyte% 2.3 % (0-10); NRBC Flagged by Analyzer 0 % (0-5); Neutrophil # 1.72 X10^3/uL (2.7-7.7); Neutrophil % 78.1 % (47-70); POSITIVE DIFFERENTIAL YES; POSITIVE MORPHOLOGY YES; Platelet Count 215 K/mm3 (150-450); RBC Distribution Width CV 17.5 % (11.6-14.6); RBC Distribution Width SD 46.7 fl (35.1-43.9); Red Blood Count 4.13 M/mm3 (4.6-6.2); White Blood Count 2.2 K/mm3 (4.4-11.0)
[2025-03-22 06:25] LABS: Differential Indicated SCAN CRITERIA MET
[2025-03-22 06:43] LABS: ALB/GLOB Ratio 1.4 RATIO (0.9-2.4); AST(SGOT) 15 U/L (<=37); Alanine Aminotransfer ALT/SGPT 7 U/L (<=46); Albumin, Serum 3.1 g/dL (3.4-4.8); Alkaline Phosphatase 61 U/L (40-129); Anion Gap 15 (5-15); BUN 14 mg/dL (4-19); BUN/Creat Ratio 15.1 RATIO (10-20); Calcium,Total 8.3 mg/dL (7.6-11.0); Carbon Dioxide 13.8 mmol/L (21.0-32.0); Chloride 103 mmol/L (98-108); Creatinine, Serum 0.91 mg/dL (0.70-1.20); EST Glomerular Filtration Rate 91 (>60); Estimated Creatinine Clearance 72.05 ml/min (50-250); Globulin 2.2 g/dL (2.2-4.2); Glucose 153 mg/dL (70-99); Potassium 4.1 mmol/L (3.3-5.1); Protein, Total 5.3 g/dL (5.9-8.4); Sodium Level 132 mmol/L (133-145); Total Bilirubin 0.28 mg/dL (0.00-1.30)
[2025-03-22 07:21] LABS: Differential Comment S
[2025-03-22] MEDS: Carvedilol 25 MG Tablet PO ×2 (08:01→19:15)
[2025-03-22] MEDS: APIXABAN 2.5 MG TABLET (WCH) PO ×2 (08:01→21:00)
[2025-03-22] MEDS: hydrALAZINE 50 MG Tablet PO ×2 (08:02→21:00)
[2025-03-22] MEDS: amLODIPine 10 MG Tablet PO (08:02)
--- NOTE | 2025-03-22 09:54 | PN.HOSP_ITS ---
Reason for Visit Reason for Visit: Diagnoses Pneumonia, unspecified organism (03/21/25) Hypoxemia (03/21/25) Dysphagia, unspecified (03/21/25) Objective Data Objective Data Vital Signs: Vital Signs Temp Pulse Resp BP Pulse Ox O2 Del Method O2 Flow Rate 97.6 F L 84 18 114/56 L 97 Nasal Cannula 3 03/22/25 07:52 03/22/25 08:02 03/22/25 07:52 03/22/25 08:02 03/22/25 07:52 03/22/25 07:52 03/22/25 07:52 Oxygen Flow Rate (L/min) 3 Oxygen Delivery Method Nasal Cannula Weight: 173 lb 11.588 oz Body Mass Index (BMI) 28.9 Intake & Output: Intake and Output for Last 24 Hours 03/20/25 03/21/25 03/22/25 23:59 23:59 23:59 Intake Total 2372.17 / 2372.17 1140.08 / 1140.08 Balance 2372.17 / 2372.17 1140.08 / 1140.08 Lab / Micro Data 03/22/25 06:10 03/22/25 06:10 Labs: Laboratory Results - last 24 hr 03/21/25 10:23: Sodium 132 L, Potassium 3.6, Chloride 101, Carbon Dioxide 15.6 L , Anion Gap 15, BUN 14, Creatinine 0.89, Estim Creat Clear Calc 74.15, Est GFR (MDRD) Non-Af 91, BUN/Creatinine Ratio 15.5, Glucose 87, Calcium 8.3, Phosphorus 3.9, Magnesium 1.7, Total Bilirubin 0.43, AST 17, ALT 6, Alkaline Phosphatase 62, Total Protein 4.9 L, Albumin 2.9 L, Globulin 2.0 L, Albumin/Globulin Ratio 1.5, Lipase 23 03/21/25 10:53: WBC 3.9 L, RBC 4.03 L, Hgb 9.5 L, Hct 29.5 L, MCV 73.2 L, MCH 23.6 L, MCHC 32.2, RDW Std Deviation 47.2 H, RDW Coeff of Kailey 17.7 H, Plt Count 208, MPV 8.8, Immature Gran % (Auto) 1.300 H, Neut % (Auto) 57.3, Lymph % (Auto) 19.8, [place] % (Auto) 14.1 H, Eos % (Auto) 6.7 H, Baso % (Auto) 0.8, Absolute Neuts (auto) 2.2, Absolute Lymphs (auto) 0.77 L, Nucleated RBC % 0 03/22/25 06:10: WBC 2.2 L, RBC 4.13 L, Hgb 9.9 L, Hct 30.6 L, MCV 74.1 L, MCH 24.0 L, MCHC 32.4, RDW Std Deviation 46.7 H, RDW Coeff of [place] 17.5 H, Plt Count 215, MPV 9.0, Immature Gran % (Auto) 1.800 H, Neut % (Auto) 78.1 H, Lymph % (Auto) 17.3 L, [place] % (Auto) 2.3, Eos % (Auto) 0.0, Baso % (Auto) 0.5, Absolute Neuts (auto) 1.7 L, Absolute Lymphs (auto) 0.38 L, Nucleated RBC % 0, Differential Comment S, Sodium 132 L, Potassium 4.1, Chloride 103, Carbon Dioxide 13.8 L, Anion Gap 15, BUN 14, Creatinine 0.91, Estim Creat Clear Calc 72.05, Est GFR (MDRD) Non-Af 91, BUN/Creatinine Ratio 15.1, Glucose 153 H, Calcium 8.3, Total Bilirubin 0.28, AST 15, ALT 7, Alkaline Phosphatase 61, Total Protein 5.3 L, Albumin 3.1 L, Globulin 2.2, Albumin/Globulin Ratio 1.4 Micro: Microbiology 03/21/25 20:45 Mucosa - Nasopharyngeal Respiratory Panel (PCR) - Final 03/21/25 19:40 Nasal Secretion MRSA (PCR) - Final 03/21/25 19:46 Urine, Clean Catch Legionella Antigen - Final 03/21/25 19:46 Urine, Clean Catch Streptococcus pneumoniae Antigen (M - Final Radiography Diagnostic Testing: Radiology Impression Chest/Abdomen/Pelvis CT 03/21/25 10:03 IMPRESSION: New right pleural effusion with infiltration in both lungs worse on the right side as described. Status post left nephrectomy. Persistent masses in the right kidney. Reading Location: [id number] Physical Exam Narrative Seen and examined Personal history of metastatic renal cell carcinoma. Admitted with nausea vomiting not able to keep food in the stomach. He states he vomits right away within 10 to 15 minutes after eating. No abdominal pain Physical exam General: Alert, Oriented x3, Cooperative HEENT: Atraumatic, PERRLA, EOMI, Normocephalic. Oral: No Gingival or Mucosal Lesions/ Ulcerations Neck: Supple, No JVD, Negative Carotid Bruits Chest wall/Lungs: Mediport on the right chest wall. Air entry diminished in bilateral lung bases, Right more than left. No crepitation. Cardiovascular: Regular rate and rhythm, Normal S1,S2, No M/G/R Abdomen: Bowel Sounds Present, Soft, Non Tender, Non-Distended : No dysuria. No renal angle tenderness. No suprapubic tenderness. Extremities: No edema, Capillary Refill Less than 3 Seconds Skin: No rashes, No breakdown Musculoskeletal: No Tenderness to Palpation of Joints or Extremities Neurological: Cranial nerves II-XII grossly intact, DTR 2+/4. No acute focal neurological deficit. Psych/Mental Status: Normal Affect, Appropriate. Assessment & Plan Assessment/Plan (1) Pneumonia: (2) Hypoxia: (3) Dysphagia: PLAN: Plan The patient is a 69 y/o M admitted with nausea vomiting for 3 whenever she tries to eat it comes back right away. Does not feel weeks unable to keep things down. She does not feel that it gets into the stomach. Denies abdominal pain, chest pain shortness of breath, diarrhea melena or hematochezia. Denies dysuria #1. Possible left lower lobe pneumonia with new right pleural effusion worse on the right side with mild COPD exacerbation: Patient is being admitted on MedSurg floor. Chest abdomen pelvis CT was done which shows new right pleural effusion with infiltration in both lungs. Respiratory panel, MRSA nasal screen and urinary antigens are negative. Mild leukopenia. Patient is being managed on scheduled bronchodilator, IV Solu-Medrol, Mucinex, incentive spirometry and Pep. #2. Intractable N/V, unclear etiology with associated worsening severe protein calorie malnutrition: GI is consulted. Symptomatic management. IV fluid oral intake, clear liquid diet. No acute findings reported in CT chest/abdomen/pelvis status post left nephrectomy. Persistent masses in the right kidney. #3. Acute on chronic hyponatremia, suspected component hypovolemia poor oral intake ability: Admission sodium 132, chloride 101,, repeat sodium is same. 132. IV fluid did not make the difference. Continue IV fluid. Suspicion of possible SIADH with history of cancer COPD. #4. Chronic Kidney Disease Stage II : Admission BUN/Cr 14/0.89, GFR 91, patient baseline kidney function #5. Chronic microcytic anemia: Admission hemoglobin 9.5, MCV 73.2, baseline hemoglobin primarily 10-11 although most recently 03/15/2025 hemoglobin 10, continue to trend and if any concerns arise about further decreasing levels may need to hold NOAC and obtain guaiac. 03/22: Hemoglobin 9.9. #6. Hypertension: Continue home regimen including Coreg, hydralazine, amlodipine with hold parameters as needed, PRN hydralazine. #7. Hyperlipidemia: We will continue patient on statin therapy. #8. CAD: Status post previous PCI,: Continue patient apixaban cautiously, statin, Coreg, not on XIN inhibitor/ARB. #9. History of VTE: Patient with history of previous DVT, PE, continue patient chronic Eliquis regimen cautiously. #10. History of metastatic renal cell carcinoma, history of brain tumor unclear if this was metastatic or not with associated previous seizure history: Patient with history of metastatic renal cell carcinoma status post left nephrectomy with metastatic disease to the lung status post also lobectomy, chart history of questionable some type of brain tumor but uncertain if this was metastatic and unclear previous interventions, currently per record maintained outpatient on Keytruda, encourage continued outpatient follow-up with oncology as previously arranged. Mag and Phos requested. #11. GERD with history of duodenal ulcer disease status post previous GI bleed: We will continue patient on PPI, currently placed on IV version until oral intake improved especially given intractable nausea and emesis #12. Former tobacco use: Encourage continued tobacco cessation. #13. DVT prophylaxis: Continue patient on apixaban regimen. #14. CODE status: Patient does not have healthcare power of health care attorney or living will in place but he notes his who is present would be his medical decision-maker if necessary. Discussed CODE status at length including difference between FULL code, DNR-CCA and DNR-CC status. Following discussions about the differences in these status, requested DNR-CCA, no intubation. Charges/Coding Visit Charges Inpatient E&M: 65125 Subs Hosp L2
[2025-03-22] MEDS: Vancomycin IV 1,000 MG/200 ML BAG 200 MG IV (11:36)
[2025-03-22] MEDS: Pantoprazole Sodium 40 MG in 0.9% Normal Saline (100mL MB+) 100 ML 330 MG IV ×2 (11:37→20:58)
[2025-03-22] MEDS: Ipratropium/Albuterol Sulfate 3 ML AMPUL.NEB INHALATION ×3 (13:14→22:45)
--- NOTE | 2025-03-22 13:53 | CASEMGMT ---
Addendum entered by Bianca Santillan 03/22/25 16:37: Call received from Dahiana @ [facility]. They are able to accept pt w/SOC slated for Thursday. DC plan updated. Original Note: RN CM into pt room, pt sitting up in bed with at bedside. Pt states [facility] Pt states he has a pox at home. Discussed having some HHC with SN and PT. Pt states he just finished with [facility] not long ago. He would be open to this again. He denies the need for a list of agencies to chose from and wants [facility] again. Pt states he was indep at home but has been feeling weaker. TC to [facility], referral made at this time.
[2025-03-22] MEDS: 0.9% Saline Lock 10 ML Syringe IV ×2 (14:15→20:55)
[2025-03-22] MEDS: Lactated Ringers 1,000 ML 15 ML IV (16:20)
--- NOTE | 2025-03-22 17:23 | PCM.PRE.AN2 ---
ASA Classification* ASA Classification ASA Classification: 3 and E Assessment & Plan Anesthesia* Anesthesia Assessment Anesthesia Assessment: Discussed sedation and/or anesthesia options, risks, benefits, and alternatives with patient/parents/legal guardian/POA. Questions invited. The patient/parents/legal guardian/POA seems to understand and agrees to proceed with anesthesia plan. Reviewed the physical assessment, medical history, allergy history and patient home medications list prior to surgery/procedure/anesthetic and documented any changes. Performed airway and anesthesia risk assessments. Anesthesia Type Anesthesia Type: MAC History Source History Obtained from:: Patient and Chart Anesthesia Focused Assessment* Temperature: 97.3 F Pulse Rate: 75 Blood Pressure: 109/58 Respiratory Rate: 15 Pulse Ox: 95 Oxygen Delivery Method: Room Air Oxygen Flow Rate (L/min): 3 Airway Assessment Mouth opens: >3 cm Mallampati Score: II Teeth Condition: Dentures (Patient has full upper and lower dentures. They will come out.) Neck Range of motion (ROM): Limited ROM (Slight decrease in extension) Focused Labs Anesthesia Preop lab: CBC WBC 2.2 K/mm3 (4.4-11.0) L 03/22/25 06:10 03/22/25 RBC 4.13 M/mm3 (4.6-6.2) L 03/22/25 06:10 03/22/25 Hgb 9.9 g/dL (13.0-16.5) L 03/22/25 06:10 03/22/25 Hct 30.6 % (40-54) L 03/22/25 06:10 03/22/25 Plt Count 215 K/mm3 (150-450) 03/22/25 06:10 03/22/25 CHEMISTRY Potassium 4.1 mmol/L (3.3-5.1) 03/22/25 06:10 03/22/25 Sodium 132 mmol/L (133-145) L 03/22/25 06:10 03/22/25 Magnesium 1.7 mg/dL (1.5-2.2) 03/21/25 10:23 03/21/25 Phosphorus 3.9 mg/dL (2.7-4.5) 03/21/25 10:23 03/21/25 BUN 14 mg/dL (4-19) 03/22/25 06:10 03/22/25 Creatinine 0.91 mg/dL (0.70-1.20) 03/22/25 06:10 03/22/25 Glucose 153 mg/dL (70-99) H 03/22/25 06:10 03/22/25 POC Glucose 251 mg/dL (74-106) H 12/16/24 11:03 12/16/24 TSH 1.950 uIU/mL (0.300-4.200) 02/01/25 09:53 02/01/25 COAG PT 19.7 SECONDS (11.7-14.9) H 01/13/25 10:05 01/13/25 Pre-Assessment Diagnosis/Proposed Procedure Planned Operative Procedure(s): Esophagogastroduodenoscopy with possible biopsy. Anesthesia History Anesthesia History - jumpbasting lining baster: Anesthesia History - jumpbasting lining baster Hx Hospitalization No 01/19/25 10:31 Any Problems With Anesthesia No 01/19/25 10:31 Cholinesterase deficiency No 01/19/25 10:31 You/Your Family Experience No 01/19/25 10:31 fever (hyperthermia) with Relationship Recent Exposure to Contagious No 01/19/25 10:31 Disease Does patient have nerve No 01/19/25 10:31 stimulator Patient instructed to have device shut off --Does patient have Pacemaker No 03/22/25 11:48 or ICD? When Was Last Pacemaker Check QUESTION #4 FULL TEXT: You/Your Family Experience fever (hyperthermia) with Anesthesia Last Oral Intake Last Oral intake: Last Oral Intake NPO since 00:01 03/22/25 11:48 Meds taken in AM with sips of Yes 03/22/25 11:48 water? Meds patient instructed to see 03/22/25 11:48 take am of surgery meds given at 0800 PONV PONV - jumpbasting lining baster: PONV - jumpbasting lining baster Female HX of Motion Sickness HX of N/V After Surgery Non-Smoker Duration of Surgery greater than 60 minutes Number of Risk Factors PONV Score Height & Weight Height & Weight: Anesthesia: Height & Weight Height 5 ft 5 in 03/22/25 11:48 Weight: 78.188 kg 03/22/25 11:48 Body Mass Index (BMI) 28.6 03/22/25 11:48 Respiratory Assessment Respiratory Assessment - jumpbasting lining baster: Respiratory Tract Infection Hx - jumpbasting lining baster Hx Respiratory Tract Infection No 01/19/25 10:31 Any additional information?: Yes Hx Respiratory Tract Infection: Yes History of Anesthesia Respiratory Infection details: Patient is currently being treated for pneumonia with steroids and antibiotics and oxygen. STOP Sleep Apnea STOP Sleep Apnea - jumpbasting lining baster: STOP Sleep Apnea - jumpbasting lining baster Hx Hypertension Yes 03/22/25 13:52 Hx Sleep Apnea No 03/21/25 17:55 CPAP No 03/21/25 17:55 BIPAP Do you snore loudly (louder No 03/21/25 17:55 than talking or can be heard Do you often feel tired/ No 03/21/25 17:55 fatigued/ sleepy during daytime? Has anyone observed you stop No 03/21/25 17:55 breathing during sleep? STOP Results Negative 03/21/25 17:55 QUESTION #5 FULL TEXT : Do you snore loudly (louder than talking or can be heard through closed doors)? Tobacco Use History Tobacco Use History - jumpbasting lining baster: Tobacco Use History - jumpbasting lining baster Tobacco Use Smoking Status Former smoker 03/21/25 17:55 Hx Tobacco Use No 03/21/25 17:55 Years Smoking Packs Smoked per Day Smoking Cessation Date was Yes - quit smoking within 15 03/21/25 17:55 within the last 15 years years Hx Smoking Cessation Date 03/12/20 03/21/25 17:55 Hx Smoking Cessation Yes 03/21/25 17:55 Counseling Hematologic Medial History Hematologic Hx - jumpbasting lining baster: Hematologic Medical Hx - general dentist Hx of Blood Transfusion No 03/21/25 17:55 Hx of Transfusion in last 3 No 03/21/25 17:55 Months Date of Last Transfusion (if within last 3 months) Ever experience any problems No 03/21/25 17:55 with transfusion(s)? Specify any problems Hx of Preganancy in last 3 N/A 03/21/25 17:55 Months Nurse Filling Out Transfusion KBORNSTIN 03/21/25 17:55 & Questions: Date: 03/21/25 03/21/25 17:55 Time: 18:21 03/21/25 17:55 Patient unable to answer at this time (ie. confused, unrespo /Reproduction History /Reproductive History - jumpbasting lining baster: /Reproductive Hx- jumpbasting lining baster Hx Now Gestational Age (in weeks): EDC: Hx Hx Para Hx Section SAB No 01/19/25 10:31 Active Medications Active Medications: Current Medications Generic Name Dose Route Start Last Admin Trade Name Freq PRN Reason Stop Dose Admin Acetaminophen 650 mg 03/21/25 17:55 Acetaminophen 325 Mg Tablet PO Q4H PRN PRN Fever, pain 1-10 Albuterol/Ipratropium 3 ml 03/22/25 09:45 03/22/25 13:14 Ipratropium/Albuterol Sulfate 3 Ml Ampul.Neb INHALATION 3 ml Q6H.RT DAVE Administration Amlodipine Besylate 10 mg 03/22/25 10:00 03/22/25 08:02 Amlodipine 10 Mg Tablet PO 10 mg DAILY DAVE Administration Protocol Apixaban 2.5 mg 03/21/25 22:00 03/22/25 08:01 Apixaban 2.5 Mg Tablet ([facility]) PO 2.5 mg BID DAVE Administration Atorvastatin Calcium 80 mg 03/21/25 22:00 03/21/25 22:24 Atorvastatin Calcium 80 Mg Tablet PO 80 mg QHS DAVE Administration Carvedilol 25 mg 03/22/25 08:00 03/22/25 08:01 Carvedilol 25 Mg Tablet PO 25 mg BIDCM DAVE Administration Protocol Guaifenesin 20 ml 03/21/25 17:55 Guaifenesin 10 Ml Udc (200mg/10ml) PO Q4H PRN PRN COUGH Hydralazine HCl 50 mg 03/21/25 22:00 03/22/25 08:02 Hydralazine 50 Mg Tablet PO 50 mg BID DAVE Administration Protocol Pantoprazole Sodium 40 mg/ 110 mls @ 330 mls/hr 03/21/25 22:00 03/22/25 12:00 Sodium Chloride IV Infused Q12 DAVE Infusion Piperacillin Sod/Tazobactam 50 mls @ 12.5 mls/hr 03/21/25 22:00 03/22/25 14:17 Sod 3.375 gm/ Sodium Chloride IV 12.5 mls/hr Q8 DAVE Administration Sodium Chloride 250 mls @ 15 mls/hr 03/21/25 17:56 03/22/25 12:40 IV 15 mls/hr .[id number] PRN Infusion Saline Flush Sodium Chloride 250 mls @ 15 mls/hr 03/21/25 17:56 IV .[id number] PRN Additional IVPB Infusion Lactated Ringer's 1,000 mls @ 15 mls/hr 03/22/25 17:00 IV .Q48H DAVE Melatonin 3 mg 03/21/25 17:55 Melatonin 3 Mg Tablet PO QHS PRN PRN INSOMNIA Methylprednisolone 40 mg 03/21/25 22:00 03/22/25 14:15 Methylprednisolone 40 Mg/Ml Vial IV 40 mg Q8 DAVE Administration Ondansetron HCl 4 mg 03/21/25 17:55 Ondansetron 4 Mg/2 Ml Vial IV Q8H PRN PRN NAUSEA/VOMITING Prochlorperazine Edisylate 5 mg 03/21/25 17:55 Prochlorperazine 10 Mg/2 Ml Vial IV Q4H PRN PRN Breakthrough nausea/vomiting Senna/Docusate Sodium 2 tablet 03/21/25 17:55 Senna/Docusate Sodium 1 Tablet PO BID PRN PRN Constipation Sodium Chloride 10 - 40 ml 03/21/25 17:56 03/22/25 14:15 0.9% Saline Lock 10 Ml Syringe IV 10 ml UD PRN Administration SALINE FLUSH PFSH Medical History Acute infective gastroenteritis COPD exacerbation History of steroid therapy Low iron Seizures Shortness of breath on exertion History of pain when walking History of edema History of echocardiogram Cardiology follow-up encounter Cervical spinal cord injury Cervical stenosis of spine Numbness in right leg RUE numbness Diarrhea Hypokalemia Duodenal ulcer Anemia Diabetes mellitus, type 2 Hyperglycemia Hyponatremia Thrombocytopenia Pulmonary emboli COPD (chronic obstructive pulmonary disease) Imbalance Brain metastasis Pneumonia Sinus congestion Hx of radiation therapy Brain metastasis Frequent headaches Epistaxis Contact with or suspected exposure to other viral communicable disease Iron deficiency anemia due to chronic blood loss Encounter for immunotherapy Encounter for immunotherapy COVID-19 Nonrheumatic aortic (valve) stenosis with insufficiency Elevated troponin (05/15/21) Encephalopathy (05/15/21) Seizure (05/15/21) Metastatic renal cell carcinoma to lung Dyspnea Metastasis to adrenal gland Port-A-Cath in place Atherosclerotic heart disease of [place] coronary artery without angina pectoris Hyperlipidemia Wears glasses Wears dentures Gastric reflux Former smoker History of primary malignant neoplasm of left kidney 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 Skin cancer Abnormal colonoscopy Essential (primary) hypertension COPD (chronic obstructive pulmonary disease) Adenocarcinoma of right lung Home Medications ?Medication ?Instructions ?Recorded ?Last Taken ?Type rosuvastatin 40 mg tablet (Crestor) 40 mg PO QHS CHOLESTEROL 08/18/18 01/09/25 20:00 History 40 mg carvedilol 25 mg tablet 25 mg PO BID blood pressure 04/30/21 03/20/25 History albuterol sulfate 90 mcg/actuation 1 puff inhalation Q6H PRN SOB 05/31/21 06/12/21 History aerosol inhaler hydralazine 50 mg tablet 50 mg PO BID blood pressure 05/31/21 03/20/25 History apixaban 5 mg tablet (Eliquis) 2.5 mg (1/2 x 5 mg) PO BID #60 tabs 07/20/23 03/20/25 Rx amlodipine 10 mg tablet 10 mg PO DAILY #90 tabs 08/21/23 03/20/25 Rx ipratropium 0.5 mg-albuterol 3 mg 3 ml inhalation Q4H PRN shortness 09/07/23 Unknown Rx (2.5 mg base)/3 mL nebulization of breath or wheezing #180 mL soln omeprazole 20 mg capsule,delayed 20 mg PO DAILY 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 06/09/24 03/20/25 History release pembrolizumab 25 mg/mL intravenous 200 mg IV Q21D 12/14/24 03/15/25 History solution (Keytruda) Allergy/AdvReac Type Severity Reaction Status Date / Time No Known Allergies Allergy Verified 03/21/25 09:45 Family History Sister Diabetes CAD (coronary artery disease) Mother CVA (cerebral vascular accident) CAD (coronary artery disease) Lung cancer Father CAD (coronary artery disease) Brother CAD (coronary artery disease) Surgical History H/O cervical discectomy History of cataract surgery History of lobectomy of lung History of nephrectomy, left History of coronary angioplasty (01/05/04) History of coronary artery stent placement (09/08/03) Social History household members: spouse Smoking Status: Former smoker Tobacco: How many years used: 40 second hand exposure: No alcohol intake: current alcohol intake frequency: a few times a month Alcohol type: beer substance use type: does not use seatbelt use: always do you feel safe at home: Yes Review of Systems (Anesthesia) ROS Narrative System reviewed and no additional complaints, except as documented.
--- NOTE | 2025-03-22 17:38 | PCM.PN.BLA ---
Progress Note Patient has been n.p.o. waiting for an upper endoscopy. He did have 1 episode of nausea vomiting today. He still has a persistent cough. Physical Exam Const alert, oriented x3, no apparent distress and healthy appearing General Appearance: cooperative GI normal to inspection, nondistended, normoactive bowel sounds, soft to palpation, non-tender and non-distended Percussion: normal to percussion Rectal Exam: deferred Assessment & Plan Assessment/Plan (1) Pneumonia: (2) Hypoxia: (3) Dysphagia: PLAN: Plan The patient is a 69 y/o M admitted with nausea vomiting for 3 whenever she tries to eat it comes back right away. Does not feel weeks unable to keep things down. He is also having esophageal dysphagia. Differential diagnosis does include erosive esophagitis, Patito esophagitis, esophageal ring, esophageal stricture secondary to nausea vomiting and chemotherapy. He will undergo an upper endoscopy. He was explained alternatives, risk and benefits include normal study bleeding, infection, sepsis, perforation, need for more charge and . He will have an ASA of 3. Visit Charges Inpatient E&M: 53449 Subs Hosp L3
--- NOTE | 2025-03-22 18:28 | PCM.POST.ANE ---
Anesthesia: Postop Eval I Current Vital Signs Temperature: 98 F Pulse Rate: 84 Blood Pressure: 87/47 Respiratory Rate: 20 Pulse Ox: 96 Oxygen Delivery Method: Nasal Cannula Assessment Airway patent: Yes Spontaneous unlabored respirations: Yes Mental status: Awake and Calm nausea: No Vomiting: No Anesthesia Complication: No Fluid Hydration Crystalloid volume administer (ml): 300 Total IV fluid infused: 300 Progress Note Anesthesia document: Postop Eval 1 completed: Yes
--- NOTE | 2025-03-22 18:30 | OP.CCLET_ITS ---
03/22/2025 Jacob Jennings Re : Upper GI endoscopy procedure for Steven Arshad Dear Dick This procedure was performed on Saturday, March 22, 2025. My impressions and recommendations are as follows: Impressions : - Non-severe reflux esophagitis with no bleeding. - Erythematous mucosa in the gastric body. - Duodenal mucosal changes seen, diagnostic of celiac disease. Biopsied. Recommendations : - [facility]. Dietitian consult for gluten-free diet and start Ensure clear - Continue present medications. My findings are described in the full procedure note, which is enclosed. If I can be of further assistance, please feel free to contact me at . Sincerely, Michael Chambers, 03/22/2025 6:29:43 PM This report has been signed electronically.
--- NOTE | 2025-03-22 18:30 | OP.EGD_ITS ---
Patient Name: Steven Arshad Procedure Date: 03/22/2025 5:42 PM Date of : 1955 Age: 69 Procedure: Upper GI endoscopy Indications: Epigastric abdominal pain, Dyspepsia Providers: Michael Chambers DO Medicines: See the Anesthesia note for documentation of the administered medications Patient Profile: This is a 69 year old male. Refer to note in patient chart for documentation of history and physical. Patient has symptoms of acute dyspepsia, acute nausea, acute throat burning and acute vomiting. Complications: No immediate complications. Procedure: Pre-Anesthesia Assessment: - Prior to the procedure, a History and Physical was performed, and patient medications and allergies were reviewed. The patient is competent. The risks and benefits of the procedure and the sedation options and risks were discussed with the patient. All questions were answered and informed consent was obtained. Patient identification and proposed procedure were verified by the physician in the pre-procedure area. Mental Status Examination: alert and oriented. Airway Examination: normal oropharyngeal airway and neck mobility. Respiratory Examination: clear to auscultation. CV Examination: normal. Prophylactic Antibiotics: The patient does not require prophylactic antibiotics. Prior Anticoagulants: The patient has taken no anticoagulant or antiplatelet agents except for NSAID medication. ASA Grade Assessment: II - A patient with mild systemic disease. After reviewing the risks and benefits, the patient was deemed in satisfactory condition to undergo the procedure. The anesthesia plan was to use monitored anesthesia care (MAC). Immediately prior to administration of medications, the patient was re-assessed for adequacy to receive sedatives. The heart rate, respiratory rate, oxygen saturations, blood pressure, adequacy of pulmonary ventilation, and response to care were monitored throughout the procedure. The physical status of the patient was re-assessed after the procedure. After obtaining informed consent, the endoscope was passed under direct vision. Throughout the procedure, the patient's blood pressure, pulse, and oxygen saturations were monitored continuously. The Endoscope was introduced through the mouth, and advanced to the jejunum. Small bowel enteroscopy was deemed necessary. The upper GI endoscopy was accomplished without difficulty. The patient tolerated the procedure well. Scope In: 6:14:37 PM Scope Out: 6:18:08 PM Total Procedure Duration Time 0 hours 3 minutes 31 seconds Findings: Non-severe esophagitis with no bleeding was found 35 to 39 cm from the incisors. Localized mildly erythematous mucosa without bleeding was found in the gastric body. Decreased folds were found in the entire duodenum, flattening was found in the entire duodenum, scalloped mucosa was found in the entire duodenum and thickened folds were found in the entire duodenum. Biopsies were taken with a cold forceps for histology. Verification of patient identification for the specimen was done. Estimated blood loss was minimal. Impression: - Non-severe reflux esophagitis with no bleeding. - Erythematous mucosa in the gastric body. - Duodenal mucosal changes seen, diagnostic of celiac disease. Biopsied. Recommendation: - Return patient to [facility] for ongoing care. Dietitian consult for gluten-free diet and start Ensure clear - Continue present medications. Procedure Code(s): --- Professional --- 52474, Small intestinal endoscopy, enteroscopy beyond second portion of duodenum, not including ileum; with biopsy, single or multiple CPT copyright 2021 [employer]. All rights reserved. The codes documented in this report are preliminary and upon motor grader operator review may be revised to meet current compliance requirements. Michael Chambers DO 03/22/2025 6:29:43 PM This report has been signed electronically. Number of Addenda: 0 Note Initiated On: 03/22/2025 5:42 PM
--- NOTE | 2025-03-22 18:30 | EGD_PTH ---
PATIENT: KENN IRAEHTA LOC: MS3 U#:[id number] AGE/SX: 69/M ROOM: AK311 RE03/21/[address]: Dr. Evelio Hong MD : 1955 BED: 1 DIS: 03/24/2025 SPEC #: [id number] RECD: 03/23/25 11:02 STATUS: ZENAIDA LUANNE #: [id number] [place]: 03/22/25 18:[address]: Michael Chambers DEPT: SURGICAL PATHOLOGY RECD BY: Woodrow Woodard ENTERED: 03/23/25 12:01 SP TYPE: EGD BIOPSY [facility] DR: MD Dr. Jacob Carolina DO Dr. Prakash Chand, MD Tissues: A - Duodenum, NOS Procedures: Surgery Specimen Level IV HEADER OPERATION: EGD with biopsy PRE-OP DIAGNOSIS: Dysphagia, hypoxia, nausea/vomiting TISSUE SUBMITTED: A- Duodenum biopsy MICROSCOPIC DIAGNOSIS A. Small bowel, duodenum, biopsy: * Marked villous blunting with acute inflammation and patchy mild increase of intraepithelial lymphocytes. * A trichrome stain to further assess the subepithelial collagen table is pending and will be reported in an ADDENDUM. MICROSCOPIC DESCRIPTION Slides are reviewed. GROSS DESCRIPTION A. Received in formalin in a container labeled with the patient's name, date of , and duodenum biopsy are multiple silva-pink fragments of mucosal tissue measuring 0.7 x 0.5 x 0.3 cm in aggregate. Submitted in toto in A1. [facility] 03-23-2025 CPT:89868, 66590 ADDENDUM ADDENDUM ADDENDUM ADDENDUM ADDENDUM ADDENDUM ADDENDUM ADDENDUM ADDENDUM ADDENDUM ADDENDUM ADDENDUM ADDENDUM ADDENDUM ADDENDUM ADDENDUM ADDENDUM ADDENDUM ADDENDUM ADDENDUM ADDENDUM ADDENDUM ADDENDUM ADDENDUM 03/30/2025 15:27 ADDENDUM 03/30/2025 15:27 ADDENDUM 03/30/2025 15:27 ADDENDUM 03/30/2025 15:27 ADDENDUM 03/30/2025 15:27 This addendum is to report the findings of the trichrome stain as well as the consensus opinion of the GI pathology division at [facility] (reviewed in intradepartmental consultation): Trichrome stain highlights patchy mild thickening of the subepithelial collagen table. The consensus opinion is: Collagenous colitis pattern of injury - see comment. Comment: There is atrophy of villi with increased intraepithelial lymphocytes, scattered surface neutrophilic inflammation and increased subepithelial collagen. This is consistent with collagenous colitis pattern of injury which is a non-specific pattern of injury. The differential diagnosis includes celiac disease and medication-related injury. While these features can be seen with immunocheckpoint inhibitor enteritis, there would usually be more prominent acute inflammation and increased apoptosis. Correlation with clinical impression, medication history, and serologic studies is recommended All matched controls reacted appropriately. These tests were developed and their performance characteristics determined by [facility]. They may not have been cleared or approved by the U.S. Food and Drug Administration. The FDA has determined that such clearance or approval is not necessary.? The above immunohistochemical/dualISH?markers are ordered and reviewed by the Pathologist.
--- NOTE | 2025-03-22 18:37 | PCM.PN.BLA ---
Progress Note Mr. Arshad has Pembrolizumab, an immune checkpoint inhibitor, has been associated with celiac disease in some patients.? 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 He is on methylprednisolone 40 mg IV every 8 hours. Hopefully will be able to transition him to oral prednisone while he is on Ensure clear and maintaining a gluten-free diet. Nutrition consult was ordered. Physical Exam Const alert, oriented x3, no apparent distress and healthy appearing General Appearance: cooperative GI normal to inspection, nondistended, normoactive bowel sounds, soft to palpation, non-tender and non-distended Percussion: normal to percussion Rectal Exam: deferred Assessment & Plan Assessment/Plan (1) Nausea & vomiting:
--- NOTE | 2025-03-22 19:52 | PCM.POSTANE2 ---
Anesthesia Postop Eval I Sum Postop Eval Completion status Anesthesia document: Postop Eval 1 completed: Yes Anesthesia Postop Eval I Summary Anesthesia Postop Eval I Summary: Anesthesia Postop Eval I: Assessment Summary Airway patent Yes 03/22/25 18:32 Spontaneous unlabored Yes 03/22/25 18:32 respirations Mental status Awake,Calm 03/22/25 18:32 nausea No 03/22/25 18:32 Vomiting No 03/22/25 18:32 Anesthesia Postop Eval I: Fluid Summary Crystalloid volume administer 300 03/22/25 18:32 (ml) Colloids volume administered ( ml) Blood Product volume administered (ml) Total IV fluid infused 300 03/22/25 18:32 Anesthesia Postop Eval I: Summary Notes Anesthesia Complication No 03/22/25 18:32 Anesthesia Complication Comment: Post-operative progress note Anesthesia: Postop Eval II Evaluation Mental status: Awake and Calm Pain Level: 0 nausea: No Vomiting: No Complications Anesthesia Complication: No
[2025-03-22] MEDS: 0.9% Normal Saline (250mL Bag) 250 ML 15 ML IV (20:57)
[2025-03-22] MEDS: Atorvastatin Calcium 80 MG Tablet PO (21:01)
[2025-03-23] VITALS (10 sets, daily range): BP systolic 116–123; BP diastolic 54–71; PULSE 77–96; RESP 16–18; TEMP 36.4–37.2; O2SAT 92–98; BMI 29.0
[2025-03-23] MEDS: Ipratropium/Albuterol Sulfate 3 ML AMPUL.NEB INHALATION ×4 (01:45→19:55)
[2025-03-23 04:40] LABS: Absolute Lymphocyte Count 0.28 X10^3/uL (0.83-4.51); Absolute Neutrophil Count 2.4 X10^3/uL (2.0-7.7); Basophil# 0.02 X10^3/uL; Basophil% 0.7 % (0-1); Eosinophil# 0.01 X10^3/uL; Eosinophils% 0.3 % (0-5); Hematocrit 26.1 % (40-54); Hemoglobin 8.3 g/dL (13.0-16.5); Lymphocyte # 0.28 X10^3/ul (0.83-4.51); Lymphocyte % 9.5 % (19-41); Mean Corp Hgb Conc 31.8 g/dL (32-36); Mean Corpuscular Hgb 23.4 pg (27.0-32.0); Mean Corpuscular Volume 73.5 fL (80-94); Mean Platelet Vol. 9.1 fl (6.2-12.0); Monocyte# 0.19 X10^3/uL; Monocyte% 6.4 % (0-10); NRBC Flagged by Analyzer 0 % (0-5); Neutrophil # 2.38 X10^3/uL (2.7-7.7); Neutrophil % 80.4 % (47-70); POSITIVE DIFFERENTIAL YES; Platelet Count 187 K/mm3 (150-450); RBC Distribution Width CV 17.4 % (11.6-14.6); RBC Distribution Width SD 46.8 fl (35.1-43.9); Red Blood Count 3.55 M/mm3 (4.6-6.2)
[2025-03-23 05:09] LABS: Anion Gap 13 (5-15); BUN 16 mg/dL (4-19); BUN/Creat Ratio 18.4 RATIO (10-20); Calcium,Total 8.3 mg/dL (7.6-11.0); Carbon Dioxide 16.4 mmol/L (21.0-32.0); Chloride 110 mmol/L (98-108); Creatinine, Serum 0.87 mg/dL (0.70-1.20); EST Glomerular Filtration Rate 92 (>60); Glucose 163 mg/dL (70-99); Sodium Level 139 mmol/L (133-145)
[2025-03-23] MEDS: 0.9% Saline Lock 10 ML Syringe IV ×3 (05:21→21:19)
[2025-03-23] MEDS: Piperacil/Tazobactam 3.375 GM in 0.9% Normal Saline (50mL MB+) 50 ML IV ×3 (05:22→21:58)
[2025-03-23] MEDS: hydrALAZINE 50 MG Tablet PO ×2 (07:43→21:16)
[2025-03-23] MEDS: amLODIPine 10 MG Tablet PO (07:44)
[2025-03-23] MEDS: APIXABAN 2.5 MG TABLET (WCH) PO ×2 (07:44→21:16)
[2025-03-23] MEDS: Carvedilol 25 MG Tablet PO ×2 (07:44→17:06)
--- NOTE | 2025-03-23 09:45 | CASEMGMT ---
LUPE GAR NOTE: RN CM to room. Pt resting in bed w/HOB elevated. Introduced self and role. Pt made aware [facility] able to accept him w/SOC slated for Thursday. He voices appreciation. He denies having other discharge needs or concerns at this time. Jorge Luis BSN LUPE GAR
[2025-03-23] MEDS: Pantoprazole Sodium 40 MG in 0.9% Normal Saline (100mL MB+) 100 ML 330 MG IV ×2 (10:26→21:13)
--- NOTE | 2025-03-23 13:40 | PCM.PN.HOSP ---
Reason for Visit Reason for Visit: Diagnoses Pneumonia, unspecified organism (03/21/25) Hypoxemia (03/21/25) Nausea with vomiting, unspecified (03/21/25) Dysphagia, unspecified (03/21/25) Objective Data Objective Data Vital Signs: Vital Signs Temp Pulse Resp BP Pulse Ox O2 Del Method O2 Flow Rate 97.5 F L 83 18 120/54 L 94 Nasal Cannula 3 03/23/25 07:40 03/23/25 13:16 03/23/25 13:16 03/23/25 07:40 03/23/25 07:50 03/23/25 09:50 03/23/25 09:50 Oxygen Flow Rate (L/min) 3 Oxygen Delivery Method Nasal Cannula Weight: 174 lb 9.698 oz Body Mass Index (BMI) 29.0 Intake & Output: Intake and Output for Last 24 Hours 03/21/25 03/22/25 03/23/25 23:59 23:59 23:59 Intake Total 2372.17 / 2372.17 2232.08 / 2232.08 474 / 474 Balance 2372.17 / 2372.17 2232.08 / 2232.08 474 / 474 Medical Nutrition Assessment Dietitian: Malnutrition Criteria Met Start: 03/22/25 10:48 Freq: Status: Active Protocol: Document 03/22/25 15:22 SB (Rec: 03/22/25 15:23 SB [id number]) Nutrition Malnutrition Evidence of Yes Malnutrition Exists Malnutrition (severe Chronic ): Evidenced By Suboptimal Energy Intake (Severe),Weight Loss (Severe) Clinical Problem Chronic Disease or Condition Related Malnutrition Etiology severe related to altered GI function and metastatic cancer Signs/Symptoms as evidenced by 18% unintentional weight loss x 3 months and PO intake <75% of estimated nutrition needs x 3 weeks Status Active Problem Recommendation Dietitian Recommend advanced diet as tolerated to liberal regular Recommendations/ diet due to malnutrition. Changes Will order 120ml EPHP 4x daily with medpass, as diet is advanced. Additional ONS as diet advanced to solid foods. Lab / Micro Data 03/23/25 04:30 03/23/25 04:30 Labs: Laboratory Results - last 24 hr 03/23/25 04:30: WBC 3.0 L, RBC 3.55 L, Hgb 8.3 L, Hct 26.1 L, MCV 73.5 L, MCH 23.4 L, MCHC 31.8 L, RDW Std Deviation 46.8 H, RDW Coeff of Kailey 17.4 H, Plt Count 187, MPV 9.1, Immature Gran % (Auto) 2.700 H, Neut % (Auto) 80.4 H, Lymph % (Auto) 9.5 L, Haakon % (Auto) 6.4, Eos % (Auto) 0.3, Baso % (Auto) 0.7, Absolute Neuts (auto) 2.4, Absolute Lymphs (auto) 0.28 L, Nucleated RBC % 0, Sodium 139, Potassium 4.0, Chloride 110 H, Carbon Dioxide 16.4 L, Anion Gap 13, BUN 16, Creatinine 0.87, Estim Creat Clear Calc 75.10, Est GFR (MDRD) Non-Af 92, BUN/Creatinine Ratio 18.4, Glucose 163 H, Calcium 8.3 Micro: Microbiology 03/21/25 18:31 Sputum, Expectorated/Coughed Gram Stain - Final 03/21/25 18:31 Sputum, Expectorated/Coughed Respiratory Culture - Preliminary Staphylococcus aureus GNR lactose thermal intelligence analyst 03/21/25 20:45 Mucosa - Nasopharyngeal Respiratory Panel (PCR) - Final 03/21/25 19:40 Nasal Secretion MRSA (PCR) - Final 03/21/25 19:46 Urine, Clean Catch Legionella Antigen - Final 03/21/25 19:46 Urine, Clean Catch Streptococcus pneumoniae Antigen (M - Final Physical Exam Narrative Seen and examined Personal history of metastatic renal cell carcinoma. Admitted with nausea vomiting not able to keep food in the stomach. He states he vomits right away within 10 to 15 minutes after eating. No abdominal pain Physical exam General: Alert, Oriented x3, Cooperative HEENT: Atraumatic, PERRLA, EOMI, Normocephalic. Oral: No Gingival or Mucosal Lesions/ Ulcerations Neck: Supple, No JVD, Negative Carotid Bruits Chest wall/Lungs: Mediport on the right chest wall. Air entry diminished in bilateral lung bases, Right more than left. No crepitation. Cardiovascular: Regular rate and rhythm, Normal S1,S2, No M/G/R Abdomen: Bowel Sounds Present, Soft, Non Tender, Non-Distended : No dysuria. No renal angle tenderness. No suprapubic tenderness. Extremities: No edema, Capillary Refill Less than 3 Seconds Skin: No rashes, No breakdown Musculoskeletal: No Tenderness to Palpation of Joints or Extremities Neurological: Cranial nerves II-XII grossly intact, DTR 2+/4. No acute focal neurological deficit. Psych/Mental Status: Normal Affect, Appropriate. Assessment & Plan Assessment/Plan (1) Pneumonia: (2) Hypoxia: (3) Dysphagia: PLAN: Plan The patient is a 69 y/o M admitted with nausea vomiting for 3 whenever she tries to eat it comes back right away. Does not feel weeks unable to keep things down. She does not feel that it gets into the stomach. Denies abdominal pain, chest pain shortness of breath, diarrhea melena or hematochezia. Denies dysuria #1. Possible left lower lobe pneumonia with new right pleural effusion worse on the right side with mild COPD exacerbation: Patient is being admitted on [facility] floor. Chest abdomen pelvis CT was done which shows new right pleural effusion with infiltration in both lungs. Respiratory panel, MRSA nasal screen and urinary antigens are negative. Mild leukopenia. Patient is being managed on scheduled bronchodilator, IV Solu-Medrol, Mucinex, incentive spirometry and Pep. 03/23: Preliminary sputum culture Gram stain shows Staph aureus and GNR lactose thermal intelligence analyst. Vancomycin started back. MRSA nasal screen negative but will continue vancomycin until MRSA is ruled out on the sputum culture and sensitivity. #2. Intractable N/V, unclear etiology with associated worsening severe protein calorie malnutrition: GI is consulted. Symptomatic management. IV fluid oral intake, clear liquid diet. No acute findings reported in CT chest/abdomen/pelvis status post left nephrectomy. Persistent masses in the right kidney. 03/23: Symptoms have subsided. #3. Acute on chronic hyponatremia, suspected component hypovolemia poor oral intake ability: Admission sodium 132, chloride 101,, repeat sodium is same. 132. IV fluid did not make the difference. Continue IV fluid. Suspicion of possible SIADH with history of cancer COPD. 03/23: Serum sodium 139, potassium 140. Anion gap 13. BUN/creatinine normal. #4. Chronic Kidney Disease Stage II : Admission BUN/Cr 14/0.89, GFR 91, patient baseline kidney function #5. Chronic microcytic anemia: Admission hemoglobin 9.5, MCV 73.2, baseline hemoglobin primarily 10-11 although most recently 03/15/2025 hemoglobin 10, continue to trend and if any concerns arise about further decreasing levels may need to hold NOAC and obtain guaiac. 03/22: Hemoglobin 9.9. 03/23: Hemoglobin 8.3/26.8%. Platelet count 187 K. Monitor H&H at night. #6. Hypertension: Continue home regimen including Coreg, hydralazine, amlodipine with hold parameters as needed, PRN hydralazine. #7. Hyperlipidemia: We will continue patient on statin therapy. #8. CAD: Status post previous PCI,: Continue patient apixaban cautiously, statin, Coreg, not on XIN inhibitor/ARB. #9. History of VTE: Patient with history of previous DVT, PE, continue patient chronic Eliquis regimen cautiously. #10. History of metastatic renal cell carcinoma, history of brain tumor unclear if this was metastatic or not with associated previous seizure history: Patient with history of metastatic renal cell carcinoma status post left nephrectomy with metastatic disease to the lung status post also lobectomy, chart history of questionable some type of brain tumor but uncertain if this was metastatic and unclear previous interventions, currently per record maintained outpatient on Keytruda, encourage continued outpatient follow-up with oncology as previously arranged. Mag and Phos requested. #11. GERD with history of duodenal ulcer disease status post previous GI bleed: We will continue patient on PPI, currently placed on IV version until oral intake improved especially given intractable nausea and emesis #12. Former tobacco use: Encourage continued tobacco cessation. #13. DVT prophylaxis: Continue patient on apixaban regimen. #14. CODE status: Patient does not have healthcare power of deputy attorney general or living will in place but he notes his who is present would be his medical decision-maker if necessary. Discussed CODE status at length including difference between FULL code, DNR-CCA and DNR-CC status. Following discussions about the differences in these status, requested DNR-CCA, no intubation. Microbiology Past 72 Hours 03/21/25 18:31 Sputum, Expectorated/Coughed Gram Stain - Final 03/21/25 18:31 Sputum, Expectorated/Coughed Respiratory Culture - Preliminary Staphylococcus aureus GNR lactose thermal intelligence analyst 03/21/25 20:45 Mucosa - Nasopharyngeal Respiratory Panel (PCR) - Final 03/21/25 19:40 Nasal Secretion MRSA (PCR) - Final 03/21/25 19:46 Urine, Clean Catch Legionella Antigen - Final 03/21/25 19:46 Urine, Clean Catch Streptococcus pneumoniae Antigen (M - Final Laboratory Results 03/23/25 04:30: WBC 3.0 L, RBC 3.55 L, Hgb 8.3 L, Hct 26.1 L, MCV 73.5 L, MCH 23.4 L, MCHC 31.8 L, RDW Std Deviation 46.8 H, RDW Coeff of Kailey 17.4 H, Plt Count 187, MPV 9.1, Immature Gran % (Auto) 2.700 H, Neut % (Auto) 80.4 H, Lymph % (Auto) 9.5 L, Haakon % (Auto) 6.4, Eos % (Auto) 0.3, Baso % (Auto) 0.7, Absolute Neuts (auto) 2.4, Absolute Lymphs (auto) 0.28 L, Nucleated RBC % 0, Sodium 139, Potassium 4.0, Chloride 110 H, Carbon Dioxide 16.4 L, Anion Gap 13, BUN 16, Creatinine 0.87, Estim Creat Clear Calc 75.10, Est GFR (MDRD) Non-Af 92, BUN/Creatinine Ratio 18.4, Glucose 163 H, Calcium 8.3 Clinical Impression(s) from Imaging Studies Chest/Abdomen/Pelvis CT 03/21/25 10:03 IMPRESSION: New right pleural effusion with infiltration in both lungs worse on the right side as described. Status post left nephrectomy. Persistent masses in the right kidney. Charges/Coding Visit Charges Inpatient E&M: 76088 Subs Hosp L2
[2025-03-23] MEDS: 0.9% Normal Saline (250mL Bag) 250 ML 15 ML IV (14:23)
[2025-03-23] MEDS: Vancomycin HCl 1,250 MG in 0.9% Normal Saline (250mL Bag) 250 ML 167 MG IV (14:32)
--- NOTE | 2025-03-23 14:48 | PHA.PHARE_ITS ---
Consult Antibiotic Management Pharmacy has been consulted to manage selected antibiotic: Vancomycin Type of Intervention Type of Consult: New start Suspected Infection Suspected Infection: Pneumonia Prior Doses of Antibiotics Prior Doses of Antibiotics Received/Current Regimen: Vancomycin 1250 mg IV x 1 given 03/23/25@ 0200 Labs Labs: Sodium 139 mmol/L (133-145) 03/23/25 04:30 Potassium 4.0 mmol/L (3.3-5.1) 03/23/25 04:30 Chloride 110 mmol/L (98-108) H 03/23/25 04:30 Carbon Dioxide 16.4 mmol/L (21.0-32.0) L 03/23/25 04:30 Anion Gap 13 (5-15) 03/23/25 04:30 BUN 16 mg/dL (4-19) 03/23/25 04:30 Creatinine 0.87 mg/dL (0.70-1.20) 03/23/25 04:30 Est GFR (MDRD) Non-Af 92 (>60) 03/23/25 04:30 BUN/Creatinine Ratio 18.4 RATIO (10-20) 03/23/25 04:30 Glucose 163 mg/dL (70-99) H 03/23/25 04:30 Microbiology Microbiology: Microbiology 03/21/25 18:31 Sputum, Expectorated/Coughed Gram Stain - Final 03/21/25 18:31 Sputum, Expectorated/Coughed Respiratory Culture - Preliminary Staphylococcus aureus GNR lactose oracle analyst 03/21/25 20:45 Mucosa - Nasopharyngeal Respiratory Panel (PCR) - Final 03/21/25 19:40 Nasal Secretion MRSA (PCR) - Final 03/21/25 19:46 Urine, Clean Catch Legionella Antigen - Final 03/21/25 19:46 Urine, Clean Catch Streptococcus pneumoniae Antigen (M - Final Dosing Weight Weight used for dosin kg Estimated Creatinine Clearance Estimated Creatinine Clearance: ~ 75 Goal Trough Goal Trough: 15-20 mcg/mL Pharmacy Plan for Drug Dosing Pharmacy Plan for Drug Dosing: Vancomycin 1250 mg IV x 1 followed by 1000 mg IV Q12H Pharmacy Service will continue to monitor and adjust dosing as required. Follow-Up Labs Follow-Up Labs: Trough: Vancomycin Date/Time Labs Ordered Labs to be done on [date and time ordered]: 03/25/25 @ 0200
--- NOTE | 2025-03-23 18:37 | PN_ITS ---
Progress Note Patient is eating a little bit better today. He denies any abdominal pain or cramping at this time. His nausea is a lot better, but he is still vomiting postprandially. Physical Exam Narrative No abdominal pain Physical exam General: Alert, Oriented x3, Cooperative HEENT: Atraumatic, PERRLA, EOMI, Normocephalic. Oral: No Gingival or Mucosal Lesions/ Ulcerations Neck: Supple, No JVD, Negative Carotid Bruits Chest wall/Lungs: Mediport on the right chest wall. Air entry diminished in bilateral lung bases, Right more than left. No crepitation. Cardiovascular: Regular rate and rhythm, Normal S1,S2, No M/G/R Abdomen: Bowel Sounds Present, Soft, Non Tender, Non-Distended : No dysuria. No renal angle tenderness. No suprapubic tenderness. Extremities: No edema, Capillary Refill Less than 3 Seconds Skin: No rashes, No breakdown Musculoskeletal: No Tenderness to Palpation of Joints or Extremities Neurological: Cranial nerves II-XII grossly intact, DTR 2+/4. No acute focal neurological deficit. Psych/Mental Status: Normal Affect, Appropriate. Assessment & Plan Assessment/Plan (1) Pneumonia: (2) Hypoxia: (3) Dysphagia: PLAN: Plan The patient is a 69 y/o M admitted with nausea & vomiting for 3 whenever he tries to eat it comes back right away. He is also having esophageal dysphagia. He underwent an upper endoscopy yesterday. He did not have any narrowing or any problems in his esophagus. He did have poor motility in his esophagus. His stomach did not have any gross abnormalities. He did have significant inflammation from his duodenal bulb all way through to the 3rd and 4th portion of the duodenum. 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 He is on IV Solu-Medrol. He rates his nausea at a 2 out of 10 to 3 out of 10 when he does not eat but it can go up to a 10 out of 10 when he eats. Recommendation: - Continue steroids at current dosing - Start metoclopramide 10 mg IV every 8 hours - Azithromycin 500 mg IV daily - Less narcotics as possible Visit Charges Inpatient E&M: 33889 [facility] L3
[2025-03-23] MEDS: Azithromycin 500 MG in 0.9% Normal Saline (250mL Bag) 250 ML 255 MG IV (19:28)
[2025-03-23] MEDS: ALPRAZolam 0.25 MG Tablet 0.125 MG PO (21:15)
[2025-03-23] MEDS: Atorvastatin Calcium 80 MG Tablet PO (21:17)
[2025-03-23] MEDS: Metoclopramide 10 MG/2 ML Vial IV (23:42)
[2025-03-24] VITALS (8 sets, daily range): BP systolic 114–123; BP diastolic 54–65; PULSE 82–92; RESP 15–18; TEMP 36.8–37; O2SAT 91–99; BMI 29.7
[2025-03-24] MEDS: Ipratropium/Albuterol Sulfate 3 ML AMPUL.NEB INHALATION ×3 (01:55→13:15)
[2025-03-24] MEDS: Vancomycin IV 1,000 MG/200 ML BAG 200 MG IV ×2 (04:14→14:23)
[2025-03-24] MEDS: Piperacil/Tazobactam 3.375 GM in 0.9% Normal Saline (50mL MB+) 50 ML IV ×2 (05:19→14:23)
[2025-03-24] MEDS: Metoclopramide 10 MG/2 ML Vial IV ×2 (05:19→12:36)
[2025-03-24] MEDS: 0.9% Saline Lock 10 ML Syringe IV (05:24)
[2025-03-24 07:21] LABS: Hematocrit 25.4 % (40-54); Hemoglobin 7.9 g/dL (13.0-16.5); Mean Corp Hgb Conc 31.1 g/dL (32-36); Mean Corpuscular Hgb 23.1 pg (27.0-32.0); Mean Corpuscular Volume 74.3 fL (80-94); Mean Platelet Vol. 9.2 fl (6.2-12.0); POSITIVE COUNT YES; POSITIVE DIFFERENTIAL YES; POSITIVE MORPHOLOGY YES; Platelet Count 190 K/mm3 (150-450); RBC Distribution Width CV 17.9 % (11.6-14.6); RBC Distribution Width SD 48.8 fl (35.1-43.9); Red Blood Count 3.42 M/mm3 (4.6-6.2); White Blood Count 2.5 K/mm3 (4.4-11.0)
[2025-03-24] MEDS: Carvedilol 25 MG Tablet PO (07:57)
[2025-03-24 08:09] LABS: Differential Indicated MANUAL DIFF
[2025-03-24 08:56] LABS: Anion Gap 8 (5-15); BUN 17 mg/dL (4-19); BUN/Creat Ratio 20.8 RATIO (10-20); Carbon Dioxide 17.9 mmol/L (21.0-32.0); Chloride 112 mmol/L (98-108); Creatinine, Serum 0.83 mg/dL (0.70-1.20); EST Glomerular Filtration Rate 94 (>60); Estimated Creatinine Clearance 80.11 ml/min (50-250); Glucose 232 mg/dL (70-99); Potassium 3.6 mmol/L (3.3-5.1); Sodium Level 139 mmol/L (133-145)
[2025-03-24 09:25] LABS: Lymphocyte 5 % (19-41); Monocyte 1 % (0-10); Myelocyte 2 % (0-0); Neutrophil-Segmented 92 % (47-70); Total Cells Counted 100 (MANUAL DIFF)
[2025-03-24 09:46] LABS: Ovalocyte RARE
[2025-03-24 09:52] LABS: Absolute Lymphocyte Count 0.13 X10^3/uL (0.83-4.51); Absolute Neutrophil Count 2.3 X10^3/uL (2.0-7.7)
[2025-03-24 09:54] LABS: Pathologist Review May foll
[2025-03-24] MEDS: Pantoprazole Sodium 40 MG in 0.9% Normal Saline (100mL MB+) 100 ML 330 MG IV (10:44)
[2025-03-24] MEDS: APIXABAN 2.5 MG TABLET (WCH) PO (10:45)
[2025-03-24] MEDS: ALPRAZolam 0.25 MG Tablet 0.125 MG PO (10:49)
[2025-03-24] MEDS: Azithromycin 500 MG in 0.9% Normal Saline (250mL Bag) 250 ML 255 MG IV (10:59)
[2025-03-24] MEDS: Sodium Ferric Gluconat/Sucrose 250 MG in 0.9% Normal Saline (250mL Bag) 250 ML 135 MG IV (11:41)
[2025-03-24 12:40] LABS: Hemoglobin 8.8 g/dL (13.0-16.5)
--- NOTE | 2025-03-24 14:18 | CASEMGMT ---
Addendum entered by Bianca Santillan 03/24/25 15:59: Correction, Dahiana @ [facility] notified via VM that pt is being discharged home today. Addendum entered by Bianca Santillan 03/24/25 15:50: Discharge order is in. Dahiana @ [facility] notified. Original Note: LUPE GAR NOTE: Dahiana @ [facility] aware unsure if pt will be ready for discharge today. She states will keep SOC planned for Thursday. Green sheet placed on pt's chart w/instructions for HHC notification and for any increase in oxygen needs @ discharge. Jorge Luis JOHNSON RN CM
--- NOTE | 2025-03-24 14:54 | DCINST_ITS ---
Discharge Instructions Diet Discharge Diet: No restrictions DC O2, CPAP, BIPAP needs Home O2 Discharge instructions: No Dressing / Incision Discharge Activity: Return to Normal Activity Dressing / Incision Call your doctor if you observe: Fever of 101 or Higher, Shortness of breath, Dizziness, Fainting spells, Swelling in the ankles, Chest pain and Increased palpitations (irregular heartbeat) Follow Up Care Test Results: Test results from this visit will be discussed in further detail at your follow- up appointment, if applicable. Discharge Plan Admission Admit Date/Time: 03/21/25 16:55 Attending Provider: Evelio Hong Primary Care Provider: Jacob Jennings Consulting Providers: Sayra Fuentes; Emmanuel Kaiser Discharge Orders/Prescriptions Prescriptions: New azithromycin 500 mg tablet 500 mg PO DAILY 14 Days Qty: 14 0RF metoclopramide HCl [Reglan] 10 mg tablet 10 mg PO Q6H 14 Days Qty: 56 0RF prednisone 20 mg tablet 40 mg PO DAILY 30 Days Qty: 60 0RF doxycycline monohydrate 100 mg capsule 100 mg PO BID 7 Days Qty: 14 0RF pantoprazole [Protonix] 40 mg tablet,delayed release (DR/EC) 40 mg PO DAILY 30 Days Qty: 30 4RF Continued carvedilol 25 mg tablet 25 mg PO BID Rx Instructions: must administer with a meal/food albuterol sulfate 90 mcg/actuation HFA aerosol inhaler 1 puff inhalation Q6H PRN (Reason: SOB) amlodipine 10 mg tablet 10 mg PO DAILY Qty: 90 3RF rosuvastatin [Crestor] 40 MG tablet 40 mg PO QHS Keytruda 25 mg/mL solution 200 mg IV Q21D hydralazine 50 mg tablet 50 mg PO BID Eliquis 5 mg tablet 2.5 mg PO BID Qty: 60 12RF ipratropium-albuterol 0.5 mg-3 mg(2.5 mg base)/3 mL solution for nebulization 3 ml inhalation Q4H PRN (Reason: shortness of breath or wheezing) Qty: 180 3RF Discontinued omeprazole 20 mg capsule,delayed release(DR/EC) 20 mg PO DAILY Referrals / Follow Up: Jacob Jennings, [Primary Care Provider] - Disposition Disposition (needs filled in before D/C Order can be placed): Home Health Service
--- NOTE | 2025-03-24 16:08 | PHA.DC_ITS ---
Pharmacy [facility] Pharm[facility] Service has performed discharge medication reconciliation and counseling for this patient. The patient's discharge medication list was reviewed for discrepancies and discrepancies were resolved. The patient was counseled on the following discharge medications and changes in medications for homegoing were reviewed. The Reason for Use, instructions for use, and potential side effects were reviewed for all new medications. The patient's questions regarding all of their medications were answered. 1. Azithromycin 500 mg PO daily x 14 days 2. Doxycycline 100 mg PO BID x 7 days 3. Metoclopramide 10 mg PO Q6H x 14 days 4. Pantoprazole 40 mg PO daily 5. Prednisone 40 mg PO daily The patient was able to verbally demonstrate an understanding of their discharge medications. Medications at Discharge Home Medications rosuvastatin 40 mg tablet (Crestor) 40 mg PO QHS CHOLESTEROL 08/18/18 carvedilol 25 mg tablet 25 mg PO BID blood pressure 04/30/21 albuterol sulfate 90 mcg/actuation aerosol inhaler 1 puff inhalation Q6H PRN SOB 05/31/21 hydralazine 50 mg tablet 50 mg PO BID blood pressure 05/31/21 apixaban 5 mg tablet (Eliquis) 2.5 mg (1/2 x 5 mg) PO BID #60 tabs 07/20/23 amlodipine 10 mg tablet 10 mg PO DAILY #90 tabs 08/21/23 ipratropium 0.5 mg-albuterol 3 mg (2.5 mg base)/3 mL nebulization soln 3 ml inhalation Q4H PRN shortness of breath or wheezing #180 mL 09/07/23 pembrolizumab 25 mg/mL intravenous solution (Keytruda) 200 mg IV Q21D 12/14/24 azithromycin 500 mg tablet 500 mg PO DAILY 14 days #14 tabs 03/24/25 doxycycline monohydrate 100 mg capsule 100 mg PO BID 7 days #14 caps 03/24/25 metoclopramide HCl 10 mg tablet (Reglan) 10 mg PO Q6H nausea and vomiting 2 weeks #56 tabs 03/24/25 pantoprazole 40 mg tablet,delayed release (Protonix) 40 mg PO DAILY 30 days #30 tabs 03/24/25 prednisone 20 mg tablet 40 mg (2 x 20 mg) PO DAILY 30 days #60 tabs 03/24/25
--- NOTE | 2025-03-24 17:17 | DS.PCM_ITS ---
Providers Date of Admission: 03/21/25 Primary Care Physician: Dr. Jacob Jennings, Consultations 03/21/25 17:55 Consult: Gastroenterology Routine Consulting Provider: [facility] Reason for Consult: Intractable N/V, significant met CA EMERGENT Consult: No MD Notified: Yes Date Notified: 03/21/25 Time Notified: 17:45 Method of Notification: Text Reason For Visit: HYPOXIA PNA INTRACTABLE N/V Diagnosis Discharge Diagnosis (1) Pneumonia: Status: Acute Code(s): J18.9 - Pneumonia, unspecified organism (2) Hypoxia: Status: Acute Code(s): R09.02 - Hypoxemia (3) Dysphagia: Status: Acute Code(s): R13.10 - Dysphagia, unspecified Medications at Discharge Home Medications rosuvastatin 40 mg tablet (Crestor) 40 mg PO QHS CHOLESTEROL 08/18/18 carvedilol 25 mg tablet 25 mg PO BID blood pressure 04/30/21 albuterol sulfate 90 mcg/actuation aerosol inhaler 1 puff inhalation Q6H PRN SOB 05/31/21 hydralazine 50 mg tablet 50 mg PO BID blood pressure 05/31/21 apixaban 5 mg tablet (Eliquis) 2.5 mg (1/2 x 5 mg) PO BID #60 tabs 07/20/23 amlodipine 10 mg tablet 10 mg PO DAILY #90 tabs 08/21/23 ipratropium 0.5 mg-albuterol 3 mg (2.5 mg base)/3 mL nebulization soln 3 ml inhalation Q4H PRN shortness of breath or wheezing #180 mL 09/07/23 pembrolizumab 25 mg/mL intravenous solution (Keytruda) 200 mg IV Q21D 12/14/24 azithromycin 500 mg tablet 500 mg PO DAILY 14 days #14 tabs 03/24/25 doxycycline monohydrate 100 mg capsule 100 mg PO BID 7 days #14 caps 03/24/25 metoclopramide HCl 10 mg tablet (Reglan) 10 mg PO Q6H nausea and vomiting 2 weeks #56 tabs 03/24/25 pantoprazole 40 mg tablet,delayed release (Protonix) 40 mg PO DAILY 30 days #30 tabs 03/24/25 prednisone 20 mg tablet 40 mg (2 x 20 mg) PO DAILY 30 days #60 tabs 03/24/25 Hospital Course Operations None Procedures EGD Summary of Care Provided Minutes Spent on Discharge: 34 Hospital Course: Per HPI: The patient is a 69 y/o M w/ PMHx: Obesity, CKD stage II per previous GFR trending, Seizure disorder, Diabetes mellitus type 2, GERD with history of duodenal ulcer with history of previous GI bleed, Chronic headaches, COPD, Chronic thrombocytopenia,Hx CTE w/ DVT/PE, Chronic hyponatremia, Metastatic renal cell carcinoma to the lung status post left nephrectomy and lobectomy with metastatic disease including to the brain, CAD status post PCI, Former tobacco use, Chronic anemia who presents to the [facility] ED on 03/21/2025 with 3 weeks of persistent intermittent nausea and emesis with difficulty eating anything as symptoms worsened by any attempted food intake noting that when he even attempts to swallow it starts to come back up with no hematemesis or coffee-ground emesis and no specific abdominal pain but given debility, inability to appropriately hydrate or eat prompted ED evaluation. He also reports mild occasional cough but not markedly productive but he does feel more short of breath especially with exertion and has occasionally been wheezing. Workup in the ED included T97.7, heart rate 87, BP 112/82, respiratory rate 24, 95% on 2 L nasal cannula with most recent repeat assessment T98.2, heart rate 78, BP 98/44, respiratory rate 18, 93% on 2 L nasal cannula, CBC with WBC 3.9, hemoglobin 9.5, MCV 73.2, platelet 2 8 with increased immature granulocytes with lymphopenia, CMP with sodium 132, carbon dioxide 15.6, BUN/creatinine 14/0.89, GFR 91, not marked appearing hepatic profile, CT chest/abdomen/pelvis with contrast with a new right pleural effusion with infiltration in both lungs worse on the right side with persistent masses in the right kidney status post left nephrectomy, in the ED patient was able to eventually drink an Ensure following IV fluids and Zofran however when he was ambulated his pulse oximeter dropped to 82%. Patient administered IV Rocephin, azithromycin given concern for pneumonia. Upon hospitalist evaluation patient also noted wheezing thus patient also administered IV solumedrol 125 mg IV x 1 in the ED. Hospital Course: 1. Acute hypoxic respiratory insufficiency secondary to bilateral lower lobe pneumonia with acute on chronic COPD exacerbation?69-year-old male with an extensive medical history recently, he was found to have metastatic kidney cancer that is going to his adrenal gland as well as a metastatic lesion to his brain and lungs. Currently on Keytruda which has led to the possibility of some focal colitis. He was having some nausea and vomiting on presentation so he had an EGD on 03/22/2025 that demonstrated nonsevere reflux esophagitis as well as duodenal mucosal changes consistent with celiac and biopsies were obtained. He also had some erythematous mucosa in the gastric body. He was started on IV antibiotics for his pneumonia sputum cultures came back with an E. coli and MRSA, the MRSA was sensitive to doxycycline so he was transitioned from IV vancomycin and IV Zosyn to doxycycline 100 mg p.o. twice daily for 7 days. Also because of the possibility of an immunotherapy induced enteritis instead of a typical COPD taper for steroids he was placed on 40 mg p.o. daily for a month with outpatient follow-up to gastroenterology. He was needing oxygen but this was weaned over his admission and he did have an amatory pulse ox today on the day of discharge which did not demonstrate a need for oxygen. I discussed with him the plan for discharge and he expressed understanding the risk and benefits of going home and he would like to go home today. 2. Iron deficiency anemia with possible GI bleed component?unclear as to the etiology of his hemoglobin drop, he has had periods of iron deficiency anemia and has been resistant to oral iron replacement as and he does not absorb it very well, the findings from the EGD with the possibility of celiac's disease may explain why. He was given a dose of Venofer on the day of discharge today and a recheck of his hemoglobin corrected from 7.9 up to 8.8. He was unable to give a stool sample today and he denied any black tarry stools or signs of lower GI bleeding. Will have him follow-up with his PCP as an outpatient to monitor his hemoglobin and he already follows with hematology for both his iron deficiency anemia as well as his metastatic renal cancer. Reading outpatient records it looks like he is taken himself off of his Eliquis even though he does have a history of PE in the setting of cancer. 3. Nausea and vomiting due to GI dysmotility?gastroenterology recommended Reglan 10 mg p.o. every 6 for 2 weeks as well as azithromycin 500 mg p.o. daily for 2 weeks on discharge with follow-up in the office in that timeframe. Based on the findings of the EGD will continue with Protonix 40 mg daily on discharge. 4. Coronary artery disease status post stent, essential hypertension, hyperlipidemia are chronic medical conditions which complicate his care. His home medications were continued with appropriate Physical Exam Narrative General: Alert, Oriented x3, Cooperative, No apparent distress HEENT: Atraumatic, PERRLA, EOMI, Normocephalic Oral: Moist Mucosa Neck: Supple, No JVD Lungs: Diminished, Normal air movement, No rhonchi, No wheeze, No rales Cardiovascular: Regular rate, Regular Rhythm, Normal S1, Normal S2, No murmurs Abdomen: Soft, Non Tender, Non-Distended, No Hepato-splenomegaly Extremities: No edema, Capillary Refill Less than 3 Seconds Skin: No rashes, No breakdown Musculoskeletal: No Tenderness to Palpation of Joints or Extremities Neurological: No focal neurological deficits, Motor Exam 5/5 strength throughout, Sensory exam intact to light touch and pain Psych/Mental Status: Normal Affect, Appropriate Weight / BMI Weight Weight: 179 lb 0.246 oz Body Mass Index (BMI) 29.7 ABG / Lab / Microbiology Data 03/24/25 12:18 03/24/25 06:45 Laboratory: Laboratory Results - last 24 hr 03/24/25 06:45: WBC 2.5 L, RBC 3.42 L, Hgb 7.9 L, Hct 25.4 L, MCV 74.3 L, MCH 23.1 L, MCHC 31.1 L, RDW Std Deviation 48.8 H, RDW Coeff of Kailey 17.9 H, Plt Count 190, MPV 9.2, Neut % (Auto) Not Reportable, Absolute Neuts (auto) 2.3, A bsolute Lymphs (auto) 0.13 L, Total Counted 100, Neutrophils % (Manual) 92 H, L ymphocytes % (Manual) 5 L, Monocytes % (Manual) 1, Myelocytes % 2 H, Diff Path Review May foll, Ovalocytes RARE, Sodium 139, Potassium 3.6, Chloride 112 H, C arbon Dioxide 17.9 L, Anion Gap 8, BUN 17, Creatinine 0.83, Estim Creat Clear Calc 80.11, Est GFR (MDRD) Non-Af 94, BUN/Creatinine Ratio 20.8 H, Glucose 232 H , Calcium 8.0 03/24/25 12:18: Hgb 8.8 L, Hct 28.0 L Microbiology: Microbiology 03/21/25 18:31 Sputum, Expectorated/Coughed Gram Stain - Final 03/21/25 18:31 Sputum, Expectorated/Coughed Respiratory Culture - Preliminary Meth. resistant Staph. aureus Escherichia coli 03/21/25 20:45 Mucosa - Nasopharyngeal Respiratory Panel (PCR) - Final 03/21/25 19:40 Nasal Secretion MRSA (PCR) - Final 03/21/25 19:46 Urine, Clean Catch Legionella Antigen - Final 03/21/25 19:46 Urine, Clean Catch Streptococcus pneumoniae Antigen (M - Final D/C Instructions Discharge Diet: No restrictions Call your doctor if you observe: Fever of 101 or Higher, Shortness of breath, Dizziness, Fainting spells, Swelling in the ankles, Chest pain and Increased palpitations (irregular heartbeat) DC O2, CPAP, BIPAP Needs Home O2 Discharge instructions: No Meaningful Use Info Meaningful Use Meaningful Use Diagnoses (Choose all that apply): None applicable Ischemic Stroke Statin Dosing Therapy Reference: STATIN DOSE THERAPY REFERENCE: * Patients > 75 years receive moderate or high dose statin therapy. * Patients 75 years or YOUNGER should receive HIGH intensity statin dose unless contraindicated. You will be required to document reason for non-treatment if statin daily dose does not meet guidelines. HIGH DOSE STATIN THERAPY DAILY Atorvastatin > than or = to 40 mg Rosuvastatin > than or = to 20 mg Amlodipine + Atorvastatin > than or = to 2.5/40 mg Ezetimibe + Simvastatin 10/80 mg Simvastatin 80mg Discharge Plan Admission Admit Date/Time: 03/21/25 16:55 Attending Provider: Evelio Hong Primary Care Provider: Jacob Jennings Consulting Providers: Sayra Fuentes; Emmanuel Kaiser Instructions Additional Instructions / Restrictions: Follow-up with your PCP in 3 to 5 days to monitor your hemoglobin and other lab work. Will continue to treat your pneumonia with doxycycline, the azithromycin and the Reglan are to help with your nausea and vomiting. Discharge Orders/Prescriptions Prescriptions: New azithromycin 500 mg tablet 500 mg PO DAILY 14 Days Qty: 14 0RF metoclopramide HCl [Reglan] 10 mg tablet 10 mg PO Q6H 14 Days Qty: 56 0RF prednisone 20 mg tablet 40 mg PO DAILY 30 Days Qty: 60 0RF doxycycline monohydrate 100 mg capsule 100 mg PO BID 7 Days Qty: 14 0RF pantoprazole [Protonix] 40 mg tablet,delayed release (DR/EC) 40 mg PO DAILY 30 Days Qty: 30 4RF Continued carvedilol 25 mg tablet 25 mg PO BID Rx Instructions: must administer with a meal/food albuterol sulfate 90 mcg/actuation HFA aerosol inhaler 1 puff inhalation Q6H PRN (Reason: SOB) amlodipine 10 mg tablet 10 mg PO DAILY Qty: 90 3RF rosuvastatin [Crestor] 40 MG tablet 40 mg PO QHS Keytruda 25 mg/mL solution 200 mg IV Q21D hydralazine 50 mg tablet 50 mg PO BID Eliquis 5 mg tablet 2.5 mg PO BID Qty: 60 12RF ipratropium-albuterol 0.5 mg-3 mg(2.5 mg base)/3 mL solution for nebulization 3 ml inhalation Q4H PRN (Reason: shortness of breath or wheezing) Qty: 180 3RF Discontinued omeprazole 20 mg capsule,delayed release(DR/EC) 20 mg PO DAILY Referrals / Follow Up: Jacob Jennings DO [Primary Care Provider] - Within 1 Week FriendMichael DO [Med Staff - Active Staff] - Within 1 Month Disposition Disposition (needs filled in before D/C Order can be placed): Home Health Service Charges/Coding Visit Charges Inpatient E&M: 28311 Disch Hosp >30min
--- NOTE | 2025-03-24 17:37 | PCM.PN.BLA ---
Progress Note Patient continues to do better and does not have any nausea vomiting since we started Reglan 10 mg every 6 hours and azithromycin 500 mg a day. He also got his appetite back a little bit with administration of methylprednisolone 40 mg IV every 8 hours. He would like to go home today. Physical Exam Narrative General: Alert, Oriented x3, Cooperative, No apparent distress HEENT: Atraumatic, PERRLA, EOMI, Normocephalic Oral: Moist Mucosa Neck: Supple, No JVD Lungs: Diminished, Normal air movement, No rhonchi, No wheeze, No rales Cardiovascular: Regular rate, Regular Rhythm, Normal S1, Normal S2, No murmurs Abdomen: Soft, Non Tender, Non-Distended, No Hepato-splenomegaly Extremities: No edema, Capillary Refill Less than 3 Seconds Skin: No rashes, No breakdown Musculoskeletal: No Tenderness to Palpation of Joints or Extremities Neurological: No focal neurological deficits, Motor Exam 5/5 strength throughout, Sensory exam intact to light touch and pain Psych/Mental Status: Normal Affect, Appropriate Assessment & Plan Assessment/Plan (1) Pneumonia: (2) Hypoxia: (3) Dysphagia: PLAN: Plan The patient is a 69 y/o M admitted with nausea & vomiting for 3 whenever he tries to eat it comes back right away. He is also having esophageal dysphagia. He underwent an upper endoscopy yesterday. He did not have any narrowing or any problems in his esophagus. He did have poor motility in his esophagus. His stomach did not have any gross abnormalities. He did have significant inflammation from his duodenal bulb all way through to the 3rd and 4th portion of the duodenum. 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 He is on IV Solu-Medrol. He rates his nausea at a 2 out of 10 to 3 out of 10 when he does not eat but it can go up to a 10 out of 10 when he eats. Recommendation: - Continue steroids at current dosing - Start metoclopramide 10 mg IV every 8 hours - Azithromycin 500 mg IV daily - Less narcotics as possible 03/24/2025-patient is okay to go home with oral Reglan and azithromycin and oral prednisone. Visit Charges Inpatient E&M: 28249 [facility] Hosp L3
== END 2025-03-24 16:28 | disposition home health service (06) | DRG 391 ==
LOC: ED 17:09 → MS3 17:15
PROVIDERS: Internal Medicine; Internal Medicine Gastroenterology; Admitting Provider Family Medicine; Emergency Provider Emergency Medicine; PCP Family Medicine; Visit Provider Family Medicine
PROC: 0DJ08ZZ Inspection of Upper Intestinal Tract, Via Natural or Artificial Opening Endoscopic (ICD-10-PCS; CPT 43235; principal; 2025-03-22 18:25)
DX: K29.80 Duodenitis without bleeding (principal); J18.9 Pneumonia, unspecified organism; E43 Unspecified severe protein-calorie malnutrition; E22.2 Syndrome of inappropriate secretion of antidiuretic hormone; C78.00 Secondary malignant neoplasm of unspecified lung; J44.0 Chronic obstructive pulmonary disease with (acute) lower respiratory infection; J44.1 Chronic obstructive pulmonary disease with (acute) exacerbation; C64.1 Malignant neoplasm of right kidney, except renal pelvis; E11.22 Type 2 diabetes mellitus with diabetic chronic kidney disease; D50.9 Iron deficiency anemia, unspecified; I12.9 Hypertensive chronic kidney disease with stage 1 through stage 4 chronic kidney disease, or unspecified chronic kidney disease; E66.9 Obesity, unspecified; E78.5 Hyperlipidemia, unspecified; N18.2 Chronic kidney disease, stage 2 (mild); I25.10 Atherosclerotic heart disease of native coronary artery without angina pectoris; K21.9 Gastro-esophageal reflux disease without esophagitis; D72.819 Decreased white blood cell count, unspecified; K21.00 Gastro-esophageal reflux disease with esophagitis, without bleeding; R13.10 Dysphagia, unspecified; R53.81 Other malaise; Z95.5 Presence of coronary angioplasty implant and graft; Z86.16 Personal history of COVID-19; Z79.01 Long term (current) use of anticoagulants; Z86.718 Personal history of other venous thrombosis and embolism; Z87.891 Personal history of nicotine dependence; R09.02 Hypoxemia; Z90.5 Acquired absence of kidney; N28.89 Other specified disorders of kidney and ureter; Z68.28 Body mass index [BMI] 28.0-28.9, adult
CPT/HCPCS: 36591; 71260; 74177; 80048; 80053; 83690; 83735; 84100; 85014; 85018; 85025; 87070; 87077; 87186; 87205; 87449; 87633; 87641; 88305; 92610; 94640; 94668; 97162; 97166; 97530; 97802; 97803; 99252; 99283; Q9967; A4216; G0463; J0696; J2405; J2916

== ENCOUNTER → 2025-06-28 | Outpatient (CLI) | payer MEDICARE, OTHER, SELFPAY ==
--- NOTE | 2025-06-28 13:43 | CT_ITS ---
PROCEDURE: CT CHEST, ABD, PEL W/CONTRAST 06/28/2025 REASON FOR EXAM: F/U METS RENAL CANCER IV CONTRAST ONLY TECHNIQUE: Chest, abdomen and pelvis CT with intravenous contrast. Coronal and Sagittal reconstruction series were provided. One or more dose reduction techniques were used (e.g., Automated exposure control, adjustment of the mA and/or kV according to patient size, use of iterative reconstruction technique. PATIENT PREPARATION: Per protocol ORAL CONTRAST TYPE: None. CONTRAST: Isovue-300 VOLUME: 100mL Gauge IV RADIATION DOSE SUMMARY: CTDlvol: 19.3 mGy DLP: 1965.65 mGycm COMPARISON: Prior study dated March 21, 2025. FINDINGS: CT CHEST: Hardware: A right-sided port a catheter is seen with the tip in the superior vena cava. Lymph nodes: Stable small benign-appearing bilateral axillary lymph nodes. No mediastinal or hilar lymph nodes are seen. Heart and Vasculature: The heart is nonenlarged. Coronary artery calcification. Lungs and Airways: Interval decrease in size of the previously seen right pleural effusion. The previously seen nodules in the posterior medial segment of the right lower lobe of the recent size. The largest nodule presently measures 11.9 mm as seen on axial image number 89 there is a 3.8 mm pleural-based nodule in the lateral anterior aspect of the right middle lobe. There is surrounding scarring and data area. Tiny nodules persist in the left lower lobe. There has been almost complete resolution of the previously seen pleural-based mass in the left lower lobe. Bones: Degenerative changes of the thoracic spine. CT ABDOMEN/PELVIS: Liver: Normal size. No mass. Gallbladder: Gallbladder is unremarkable. Spleen: Borderline splenomegaly. Stable hernia in the posterior left abdominal wall with herniation of non distended small bowel loops. Pancreas: Diffuse fatty atrophy. Adrenals: Unremarkable Kidneys: Status post left nephrectomy. There is a 6.6 cm 4.3 cm mass in the anterior midportion of the right kidney. There is also evidence of a 3.2 cm by 3.5 cm mass in the posterior medial aspect of the right kidney. There is also evidence of a 19.5 mm hypodense mass in the inferior lateral aspect of the right kidney. Bladder: Diffuse bladder wall thickening. Stable heterogeneous enlargement of the prostate with calcifications. Bowel: Unremarkable Appendix: Unremarkable Lymph nodes: Unremarkable. Vasculature: Mild diffuse atherosclerotic calcifications are noted. Peritoneum / Retroperitoneum: Bilateral inguinal hernias containing fat worse on the right side. Bones: Degenerative changes of the spine. Straightening of the normal lumbar lordosis. CT/CT Chest, Abd, Pel w/Contrast IMPRESSION: Interval improvement in the right pleural effusion as well as the previously se en nodular densities in both lung bases as described. Residual small right pleural effusion. Stable right renal masses. Diffuse bladder wall thickening. Prostatic enlargement with calcifications. Stable hernia in the posterior lateral aspect of the left midabdomen containing nondilated small bowel loops. Reading Location: [id number]
== END | disposition home or self-care (01) ==
LOC: CT 13:42
PROVIDERS: PCP Family Medicine; Referring Provider Internal Medicine Hematology & Oncology; Visit Provider Internal Medicine Hematology & Oncology
DX: C64.1 Malignant neoplasm of right kidney, except renal pelvis (principal); C79.31 Secondary malignant neoplasm of brain; C78.01 Secondary malignant neoplasm of right lung; C79.71 Secondary malignant neoplasm of right adrenal gland; C77.9 Secondary and unspecified malignant neoplasm of lymph node, unspecified; C34.31 Malignant neoplasm of lower lobe, right bronchus or lung
CPT/HCPCS: 71260; 74177; Q9967

== ENCOUNTER 2025-08-19 19:22 | Inpatient (IN) | payer MEDICARE, OTHER, SELFPAY ==
[2025-08-19 19:00] VITALS: BP 131/67; PULSE 76; RESP 16; TEMP 36.7; O2SAT 95
[2025-08-19 19:33] VITALS: BMI 29.9
--- NOTE | 2025-08-19 19:52 | PCM.HP.STD ---
HPI - General General Date of Admission: 08/19/25 Date of Service: 08/19/25 Chief Complaint: Right upper extremity cellulitis secondary to right hand cat bite HPI Narrative KENN IRAHETA, is a 69 M who presented to [facility] on 08/19/2025 as a transfer from [place] ED for right upper extremity cellulitis secondary to recent right hand cat bite. Medical history significant for metastatic renal cancer that has been stable on Keytruda therapy, non-small cell lung cancer s/p RLL resection, DVT/PE on Eliquis, CAD with stenting, hypertension, hyperlipidemia and GERD. Patient lives at home with his , has fairly good functional status at baseline. He follows with oncology here and saw them in the office on 08/16. Was noted that patient has remained stable on Keytruda and plan was to continue monitoring. He does have a history of an isolated brain metastatic lesion s/p SBRT and has since followed with MRI brain scans. He had an MRI brain done at [facility] after his office visit on 08/16 but has not gotten read yet. No neurologic symptoms noted. Patient has a pet cat and was bitten on the right hand by the cat on 08/18. Notes he has been bit before without any significant issues. However, he developed fairly rapid swelling in his hand and up into his forearm along with erythema and tenderness to palpation, so he went to the [place] ED for further evaluation. [facility] records reviewed. In the ED there was found to have a cat bite already sealed shut on the right hand at the MCP joint of the second digit with cellulitis spreading proximally into the right hand, wrist and up to the anterior and posterior forearm. He also had a blister formed which his ruptured that is now deflated; no purulent or bloody drainage noted from this blister. No foreign bodies noted. No abscess to drain noted. Workup there was as follows. CBC with WBC count 13.7 (86% neutrophils), hemoglobin 12.2, platelets 155. BMP sodium 139, potassium 3.8, chloride 109, bicarb 19, creatinine 1.19, BUN 19, glucose 107. CRP 54, ESR 29. Lactate 1.3. X-ray right hand and forearm showed large amount of soft tissue swelling with no gas noted, no foreign bodies noted. ED physician noted that CT scan was considered to rule out necrotizing soft tissue infection but given patient was not hypotensive, tachycardic, not an alcoholic, diabetic and his NSTI score was 0, there was no need for a CT scan there. He was given a dose of IV Unasyn and IV morphine there and then transferred here for further evaluation. I saw the patient at bedside shortly after he arrived here, was present. Patient was mildly fatigued appearing but otherwise sitting back comfortably in bed, conversing normally, in no acute distress. He was alert and oriented x 3. He reported mild right hand and forearm pain currently and noted that the morphine seems like it may be wearing off. He denies any fevers or chills. Denies any other acute concerns currently. [facility] Medical History MRSA (methicillin resistant staph aureus) culture positive Acute infective gastroenteritis COPD exacerbation History of steroid therapy Low iron Seizures Shortness of breath on exertion History of pain when walking History of edema History of echocardiogram Cardiology follow-up encounter Cervical spinal cord injury Cervical stenosis of spine Numbness in right leg RUE numbness Diarrhea Hypokalemia Duodenal ulcer Anemia Diabetes mellitus, type 2 Hyperglycemia Hyponatremia Thrombocytopenia Pulmonary emboli COPD (chronic obstructive pulmonary disease) Imbalance Brain metastasis Pneumonia Sinus congestion Hx of radiation therapy Brain metastasis Frequent headaches Epistaxis Contact with or suspected exposure to other viral communicable disease Iron deficiency anemia due to chronic blood loss Encounter for immunotherapy Encounter for immunotherapy COVID-19 Nonrheumatic aortic (valve) stenosis with insufficiency Elevated troponin (05/15/21) Encephalopathy (05/15/21) Seizure (05/15/21) Metastatic renal cell carcinoma to lung Dyspnea Metastasis to adrenal gland Port-A-Cath in place Atherosclerotic heart disease of [place] coronary artery without angina pectoris Hyperlipidemia Wears glasses Wears dentures Gastric reflux Former smoker History of primary malignant neoplasm of left kidney 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 Skin cancer Abnormal colonoscopy Essential (primary) hypertension COPD (chronic obstructive pulmonary disease) Adenocarcinoma of right lung Home Medications ?Medication ?Instructions ?Recorded ?Last Taken ?Type rosuvastatin 40 mg tablet (Crestor) 40 mg PO QHS CHOLESTEROL 08/18/18 08/18/25 History carvedilol 25 mg tablet 25 mg PO BID blood pressure 04/30/21 08/19/25 08:00 History hydralazine 50 mg tablet 50 mg PO BID blood pressure 05/31/21 08/19/25 08:00 History amlodipine 10 mg tablet 10 mg PO DAILY #90 tabs 08/21/23 08/19/25 Rx pembrolizumab 25 mg/mL intravenous 200 mg IV Q21D Kidney cancer 12/14/24 08/16/25 History solution (Keytruda) fluticasone fur. 100 mcg-umeclid 1 inh inhalation QDAY #60 ea 06/09/25 Unknown Rx 62.5 mcg-vilant 25 mcg inhalat.powder (Trelegy Ellipta) ipratropium 0.5 mg-albuterol 3 mg 3 ml inhalation Q4H PRN shortness 06/09/25 08/18/25 Rx (2.5 mg base)/3 mL nebulization of breath or wheezing #180 mL soln triamcinolone acetonide 0.1 % 1 applic topical DAILY itching of 06/09/25 08/18/25 History topical cream legs budesonide 3 mg 6 mg PO QDAY ciliac disease 08/04/25 08/19/25 History capsule,delayed,extended release apixaban 5 mg tablet (Eliquis) 2.5 mg PO DAILY 08/19/25 08/19/25 History omeprazole 20 mg capsule,delayed 20 mg PO DAILY Gastric burning 08/19/25 08/18/25 History release Allergy/AdvReac Type Severity Reaction Status Date / Time No Known Allergies Allergy Verified 08/16/25 11:29 Family History Sister Diabetes CAD (coronary artery disease) Mother CVA (cerebral vascular accident) CAD (coronary artery disease) Lung cancer Father CAD (coronary artery disease) Brother CAD (coronary artery disease) Surgical History H/O cervical discectomy History of cataract surgery History of lobectomy of lung History of nephrectomy, left History of coronary angioplasty (01/05/04) History of coronary artery stent placement (07/17/03) Social History household members: spouse Smoking Status: Former smoker Tobacco: How many years used: 40 second hand exposure: No alcohol intake: current alcohol intake frequency: a few times a month Alcohol type: beer substance use type: does not use seatbelt use: always do you feel safe at home: Yes ROS Constitutional Constitutional: Reports fatigue; Denies chills, fever(s) or weakness Cardiovascular Cardiovascular: Denies chest pain Respiratory/Chest Respiratory/Chest: Denies shortness of breath at rest Gastrointestinal Gastrointestinal: Denies abdominal pain Musculoskeletal Musculoskeletal: Reports other Details: Right hand and forearm pain, erythema and swelling ; Denies arthralgias or myalgias Neurologic Neurologic: Denies dizziness, focal weakness or headache(s) Vital Signs Vital Signs Vital Signs: Weight Weight: 81.7 kg Body Mass Index (BMI) 29.9 Physical Exam Const alert, oriented x3, no apparent distress and average body habitus Constitutional Narrative: Elderly male, class I obesity, mildly fatigued appearing but otherwise sitting back comfortably in bed, conversing normally, in no acute distress. General Appearance: cooperative and comfortable HEENT normocephalic, head/scalp atraumatic, hearing grossly normal bilaterally, nasal mucous membranes and turbinates normal and moist oral mucous membranes Eyes PERRL, EOMs intact bilaterally and conjunctivae normal Neck full ROM Chest inspection of chest normal Resp normal respiratory effort, normal air movement, no use of accessory muscles and clear to auscultation bilaterally Cardio regular rate, regular rhythm, no murmurs and peripheral pulses 2+ throughout GI normal to inspection, nondistended, normoactive bowel sounds, soft to palpation, non-tender and non-distended Back/Spine normal ROM Extremity Extremity Narrative: Right hand with small cat bite noted at the base of the MCP joint of the second digit. Moderate erythema with swelling noted in the hand, wrist and up into the upper forearm below the elbow. No crepitus on palpation. Mild warmth and tenderness to the touch. Psych mental status grossly normal Assessment & Plan Assessment/Plan (1) Cellulitis of right upper extremity: PLAN: Plan Patient is a 69-year-old male who presented [facility] on 08/19/2025 as a transfer from outside ED for right upper extremity cellulitis secondary to recent right hand cat bite. 1. Right upper extremity cellulitis secondary to right hand cat bite ? Admit under inpatient status to PCU. ED physician at outside hospital had concern for sepsis so patient was admitted to PCU here. Patient had mild leukocytosis with right upper extremity cellulitis but lactate was normal and he was hemodynamically stable, did not meet sepsis criteria. X-ray right hand and forearm showed large amount of soft tissue swelling with no gas noted, no foreign bodies noted. CRP 54, ESR 29. Given the rapid significant swelling noted after cat bite only 1 day ago, will obtain CT right upper extremity here for further evaluation. Will treat with IV Unasyn. Monitor closely. 2. History of metastatic renal cell carcinoma s/p left nephrectomy and non-small cell lung cancer on immunotherapy ? Follows with oncology, last office note on 08/16, see for further details. Patient has remained stable on Keytruda infusions every 21 days for some time and is undergoing active monitoring. No inpatient needs, continue outpatient follow-up. Chronic medical conditions: ? History of VTE: Continue home Eliquis 2.5 mg twice daily per oncology recommendations. Notably patient stated on admission that he typically only takes this once daily, though oncology clearly notes that he should be taking it twice daily. They did note that he has had some issues with compliance with Eliquis in the past. ? History of CAD with stenting, hypertension, hyperlipidemia: Mildly hypertensive in the 130 systolic on admit. Given infection above, okay to continue home Coreg but will hold home hydralazine and Motifene for now, restart as able. Continue home statin. ? GERD: Continue home PPI. ? Celiac disease: Continue home oral budesonide. DVT prophylaxis: Not indicated, on Eliquis CODE STATUS: DNR-CCA, DNI Expected disposition: Home, 2 to 3 days Total clinical time spent by myself addressing the patient's medical issues, reviewing all the data, and collaborating with patient's care team: 79 minutes. Charges/Coding Visit Charges Inpatient E&M: 28467 Init Hosp L3
--- NOTE | 2025-08-19 19:59 | CT_ITS ---
PROCEDURE: EXTREMITY UPPER WITHOUT CONTRA 08/19/2025 REASON FOR EXAM: R HAND/ARM CELLULITIS TECHNIQUE: Procedure Code: CTEUWO Modality: CT Procedure: EXTREMITY UPPER WITHOUT CONTRA Coronal and Sagittal reconstruction series were provided. One or more dose reduction techniques were used (e.g., Automated exposure control, adjustment of the mA and/or kV according to patient size, use of iterative reconstruction technique. RADIATION DOSE SUMMARY: CTDlvol: 24.58 mGy DLP: 1064 mGycm COMPARISON: None. FINDINGS: Diffuse soft tissue edema and swelling in the forearm, wrist and hand, probably cellulitis. No fluid collection or drainable abscess formation is seen. No CT evidence of gas-forming infection or osteomyelitis. Chronic deformity of the distal aspect of the proximal phalanx of the 2nd finger and the distal aspect of the 3rd metacarpal bone. No acute fracture is seen. CT/Extremity Upper without Contra IMPRESSION: Diffuse soft tissue edema and swelling in the forearm, wrist and hand, probably cellulitis. No fluid collection or drainable abscess formation is seen. No CT evidence of gas-forming infection or osteomyelitis. Reading Location: [facility]
[2025-08-19] MEDS: Ampicillin/Sulbactam 3 GM in 0.9% Normal Saline (100mL MB+) 100 ML IV (20:31)
[2025-08-19 21:00] VITALS: BP 145/61; PULSE 83; RESP 16; TEMP 36.9; O2SAT 94
[2025-08-19] MEDS: MELATONIN 3 MG TABLET PO (21:09)
[2025-08-20] VITALS (9 sets, daily range): BP systolic 136–152; BP diastolic 61–70; PULSE 77–86; RESP 16–21; TEMP 36.8–37; O2SAT 92–95
[2025-08-20] MEDS: Ampicillin/Sulbactam 3 GM in 0.9% Normal Saline (100mL MB+) 100 ML IV ×5 (00:56→23:08)
[2025-08-20 05:01] LABS: Hematocrit 33.7 % (40-54); Hemoglobin 11.1 g/dL (13.0-16.5); Immature Granulocytes Count 0.090 X10^3/uL (0.0-0.0); Mean Corp Hgb Conc 32.9 g/dL (32-36); Mean Corpuscular Volume 74.9 fL (80-94); Mean Platelet Vol. 9.1 fl (6.2-12.0); NRBC Flagged by Analyzer 0 % (0-5); Platelet Count 144 K/mm3 (150-450); RBC Distribution Width CV 16.9 % (11.6-14.6); RBC Distribution Width SD 45.1 fl (35.1-43.9); Red Blood Count 4.50 M/mm3 (4.6-6.2); White Blood Count 8.6 K/mm3 (4.4-11.0)
[2025-08-20 05:27] LABS: Anion Gap 11 (5-15); BUN 15 mg/dL (4-19); BUN/Creat Ratio 14.8 RATIO (10-20); Calcium,Total 8.3 mg/dL (7.6-11.0); Carbon Dioxide 21.3 mmol/L (21.0-32.0); Chloride 107 mmol/L (98-108); Estimated Creatinine Clearance 65.37 ml/min (50-250); Glucose 90 mg/dL (70-99); Potassium 3.8 mmol/L (3.3-5.1)
[2025-08-20] MEDS: 0.9% Saline Lock 10 ML Syringe IV ×5 (05:31→23:09)
[2025-08-20] MEDS: Budesonide Respules 0.5 MG/2 ML AMPUL.NEB. INHALATION ×2 (07:31→19:55)
--- NOTE | 2025-08-20 07:32 | PN.HOSP_ITS ---
Reason for Visit Chief Complaint: Right upper extremity cellulitis secondary to right hand cat bite Objective Data Objective Data Vital Signs: Vital Signs Temp Pulse Resp BP Pulse Ox O2 Del Method 98.2 F 77 16 136/61 H 92 Room Air 08/20/25 03:00 08/20/25 03:00 08/20/25 03:00 08/20/25 03:00 08/20/25 03:00 08/20/25 03:00 Oxygen Delivery Method Room Air Weight: 180 lb 1.883 oz Body Mass Index (BMI) 29.9 Intake & Output: Intake and Output for Last 24 Hours 08/18/25 08/19/25 08/20/25 23:59 23:59 23:59 Intake Total 100 / 100 200 / 200 Balance 100 / 100 200 / 200 Lab / Micro Data 08/20/25 04:25 08/20/25 04:25 Labs: Laboratory Results - last 24 hr 08/20/25 04:25: WBC 8.6, RBC 4.50 L, Hgb 11.1 L, Hct 33.7 L, MCV 74.9 L, MCH 24.7 L, MCHC 32.9, RDW Std Deviation 45.1 H, RDW Coeff of Kailey 16.9 H, Plt Count 144 L, MPV 9.1, Immature Gran % (Auto) 1.100 H, Neut % (Auto) 80.9 H, Lymph % (Auto) 10.5 L, Long % (Auto) 6.9, Eos % (Auto) 0.4, Baso % (Auto) 0.2, Absolute Neuts (auto) 6.9, Absolute Lymphs (auto) 0.90, Nucleated RBC % 0, Sodium 139, Potassium 3.8, Chloride 107, Carbon Dioxide 21.3, Anion Gap 11, BUN 15, Creatinine 1.02, Estim Creat Clear Calc 65.37, Est GFR (MDRD) Non-Af 79, BUN/Creatinine Ratio 14.8, Glucose 90, Calcium 8.3 Radiography Diagnostic Testing: Radiology Impression Upper Extremity CT 08/19/25 19:59 IMPRESSION: Diffuse soft tissue edema and swelling in the forearm, wrist and hand, probably cellulitis. No fluid collection or drainable abscess formation is seen. No CT evidence of gas-forming infection or osteomyelitis. Reading Location: [place] [id number] Physical Exam Narrative No fever. Cat bite on right hand on dorsal aspect. 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 Follows [facility], Dr. Angela Rodriguez. Seen and examined General: Alert, Oriented x3, Cooperative HEENT: Atraumatic, PERRLA, EOMI, Normocephalic. Oral: No Gingival or Mucosal Lesions/ Ulcerations Neck: Supple, No JVD, Negative Carotid Bruits Chest wall/Lungs: Air entry diminished in bilateral lung bases. Right lung surgical scar posteriorly. No crepitation/rhonchi Cardiovascular: Regular rate and rhythm, systolic murmur grade 4 radiation to carotid Abdomen: Bowel Sounds Present, Soft, Non Tender, Non-Distended : No dysuria. No renal angle tenderness. No suprapubic tenderness. Extremities: No edema, Capillary Refill Less than 3 Seconds Skin: Small superficial cat bite ulcer on the dorsum of right medial aspect of hand. Swelling of right forearm with big blister. Baseline color of both forearms are changed/discolored because of Keytruda Musculoskeletal: ROM intact. Tenderness swelling mild induration due to right forearm cellulitis Neurological: Cranial nerves II-XII grossly intact, DTR 2+/4. No acute focal neurological deficit. Psych/Mental Status: Normal Affect, Appropriate. Assessment & Plan Assessment/Plan (1) Cellulitis of right upper extremity: PLAN: Plan Patient is a 69-year-old male who presented [facility] on 08/19/2025 as a transfer from outside ED for right upper extremity cellulitis secondary to recent right hand cat bite that happened 2 days ago before admission 1. Right upper extremity cellulitis with blister secondary to right hand, dorsal first webspace cat bite: Patient is being admitted in PCU. Sepsis was ruled out. The patient had mild leukocytosis with right upper extremity cellulitis but lactate was normal and he was hemodynamically stable, did not meet sepsis criteria. X-ray right hand and forearm showed large amount of soft tissue swelling with no gas noted, no foreign bodies noted. CRP 54, ESR 29. 08/20:CT right upper extremity was done which did not show any collection. Shows features of cellulitis with diffuse soft tissue swelling of right forearm wrist and hand without any collection. Superficial blister present on dorsal aspect of right forearm. Plan: IV antibiotic, Unasyn to continue. Right hand elevation, no concern for rabies because cat was his pet. Discussed with Dr. Farrar. No crepitus. Plastic surgeon consulted for 2. History of metastatic renal cell carcinoma s/p left nephrectomy and non- small cell lung cancer on immunotherapy ? Follows with oncology, last office note on 08/16, the note reviewed.. Patient has remained stable on Keytruda infusions every 21 days for some time and is undergoing active monitoring. No inpatient needs, continue outpatient follow- up. Chronic medical conditions: ? History of VTE: Continue home Eliquis 2.5 mg twice daily per oncology recommendations. As per the oncology note he should take twice daily but was taking once daily. ? History of CAD with stenting, hypertension, hyperlipidemia: Mildly hypertensive in the 130 systolic on admit. Given infection above, okay to continue home Coreg but will hold home hydralazine and Motifene for now, restart as able. Continue home statin. ? GERD: Continue home PPI. ? Celiac disease: Continue home oral budesonide. DVT prophylaxis: Not indicated, on Eliquis CODE STATUS: DNR-CCA, DNI Clinical Impression(s) from Imaging Studies Upper Extremity CT 08/19/25 19:59 IMPRESSION: Diffuse soft tissue edema and swelling in the forearm, wrist and hand, probably cellulitis. No fluid collection or drainable abscess formation is seen. No CT evidence of gas-forming infection or osteomyelitis. Reading [facility] Charges/Coding Visit Charges Inpatient E&M: 62158 Subs Hosp L2
--- NOTE | 2025-08-20 08:20 | CON.PCM.SX_ITS ---
Assessment & Plan Assessment/Plan (1) Cellulitis of right upper extremity: PLAN: Plastic surgery will follow Continue rest and elevation of the right upper extremity (blue arm elevator) Patient with cellulitis (no fluid collections) Continue antibiotics HPI Consult Data Date of Consult: 08/20/25 HPI Narrative HPI Narrative: KENN IRAHETA, is a 69 M who presents with right upper extremity cellulitis after a forearm cat bite (dorsum) and dorsal first webspace cat bite. These bites occurred two days ago. He presented to the ED last night and a CT scan did not demonstrate any fluid collections. These cats were his house cats (no concerns for rabies). Patient is on Keytruda for metastatic cancer (renal primary). [facility] Medical History MRSA (methicillin resistant staph aureus) culture positive Acute infective gastroenteritis COPD exacerbation History of steroid therapy Low iron Seizures Shortness of breath on exertion History of pain when walking History of edema History of echocardiogram Cardiology follow-up encounter Cervical spinal cord injury Cervical stenosis of spine Numbness in right leg RUE numbness Diarrhea Hypokalemia Duodenal ulcer Anemia Diabetes mellitus, type 2 Hyperglycemia Hyponatremia Thrombocytopenia Pulmonary emboli COPD (chronic obstructive pulmonary disease) Imbalance Brain metastasis Pneumonia Sinus congestion Hx of radiation therapy Brain metastasis Frequent headaches Epistaxis Contact with or suspected exposure to other viral communicable disease Iron deficiency anemia due to chronic blood loss Encounter for immunotherapy Encounter for immunotherapy COVID-19 Nonrheumatic aortic (valve) stenosis with insufficiency Elevated troponin (05/15/21) Encephalopathy (05/15/21) Seizure (05/15/21) Metastatic renal cell carcinoma to lung Dyspnea Metastasis to adrenal gland Port-A-Cath in place Atherosclerotic heart disease of [place] coronary artery without angina pectoris Hyperlipidemia Wears glasses Wears dentures Gastric reflux Former smoker History of primary malignant neoplasm of left kidney 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 Skin cancer Abnormal colonoscopy Essential (primary) hypertension COPD (chronic obstructive pulmonary disease) Adenocarcinoma of right lung Home Medications ?Medication ?Instructions ?Recorded ?Last Taken ?Type rosuvastatin 40 mg tablet (Crestor) 40 mg PO QHS YING STEROL 08/18/18 08/18/25 History carvedilol 25 mg tablet 25 mg PO BID blood pressure 04/30/21 08/19/25 08:00 History hydralazine 50 mg tablet 50 mg PO BID blood pressure 05/31/21 08/19/25 08:00 History amlodipine 10 mg tablet 10 mg PO DAILY #90 tabs 08/0908/19/25 Rx pembrolizumab 25 mg/mL intravenous 200 mg IV Q21D Kidn ey cancer 12/14/24 08/16/25 History solution (Keytruda) fluticasone fur. 100 mcg-umeclid 1 inh inhalation QDAY #60 ea 06/09/25 Unknown Rx 62.5 mcg-vilant 25 mcg inhalat.powder (Trelegy Ellipta) ipratropium 0.5 mg-albuterol 3 mg 3 ml inhalation Q4H PRN shortness 06/09/25 08/18/25 Rx (2.5 mg base)/3 mL nebulization of breath or wheezing #180 mL soln triamcinolone acetonide 0.1 % 1 applic topical DAILY i tching of 06/09/25 08/18/25 History topical cream legs budesonide 3 mg 6 mg PO QDAY ciliac disease 08/04/25 08/19/25 History capsule,delayed,extended release apixaban 5 mg tablet (Eliquis) 2.5 mg PO DAILY 5 08/19/25 History omeprazole 20 mg capsule,delayed 20 mg PO DAILY Gastri c burning 08/19/25 08/18/25 History release Allergy/AdvReac Type Severity Reaction Status Date / Time No Known Allergies Allergy Verified 08/16/25 11:29 Family History Sister Diabetes CAD (coronary artery disease) Mother CVA (cerebral vascular accident) CAD (coronary artery disease) Lung cancer Father CAD (coronary artery disease) Brother CAD (coronary artery disease) Surgical History H/O cervical discectomy History of cataract surgery History of lobectomy of lung History of nephrectomy, left History of coronary angioplasty (01/05/04) History of coronary artery stent placement (07/17/03) Social History household members: spouse Smoking Status: Former smoker Tobacco: How many years used: 40 second hand exposure: No alcohol intake: current alcohol intake frequency: a few times a month Alcohol type: beer substance use type: does not use seatbelt use: always do you feel safe at home: Yes Physical Exam Narrative RIGHT Upper Extremity Inspection: some blisters. Palpation: no crepitus. No streaking erythema. No fluid collections. TTP on the dorsum of the forearm. No pain with axial loading of the wrist or finger joints. Motor: Able to bend and extend all MP, PIP, and DIP joints. Able to make a fist. Sensory: Intact to light touch on the radial and ulnar borders. Vascular: Finger tips are warm and well perfused with <2 second capillary refill. Lab / Micro Data 08/20/25 04:25 08/20/25 04:25 Labs: Laboratory Results - last 24 hr 08/20/25 04:25: WBC 8.6, RBC 4.50 L, Hgb 11.1 L, Hct 33.7 L, MCV 74.9 L, MCH 24.7 L, MCHC 32.9, RDW Std Deviation 45.1 H, RDW Coeff of Kailey 16.9 H, Plt Count 144 L, MPV 9.1, Immature Gran % (Auto) 1.100 H, Neut % (Auto) 80.9 H, Lymph % (Auto) 10.5 L, Russell % (Auto) 6.9, Eos % (Auto) 0.4, Baso % (Auto) 0.2, Absolute Neuts (auto) 6.9, Absolute Lymphs (auto) 0.90, Nucleated RBC % 0, Sodium 139, Potassium 3.8, Chloride 107, Carbon Dioxide 21.3, Anion Gap 11, BUN 15, Creatinine 1.02, Estim Creat Clear Calc 65.37, Est GFR (MDRD) Non-Af 79, BUN/Creatinine Ratio 14.8, Glucose 90, Calcium 8.3 Imaging Radiology Impression Upper Extremity CT 08/19/25 19:59 IMPRESSION: Diffuse soft tissue edema and swelling in the forearm, wrist and hand, probably cellulitis. No fluid collection or drainable abscess formation is seen. No CT evidence of gas-forming infection or osteomyelitis. Reading Location: [facility] [address] Charges/Coding Multi Select Codes Visit Charges Office Visit/Consults: 10030 IP Consult L2 and 88660 IP Consult L3
[2025-08-20] MEDS: Budesonide 3 MG CAPSULE.EC 6 MG PO (08:47)
[2025-08-20] MEDS: APIXABAN 2.5 MG TABLET (WCH) PO ×2 (08:48→21:10)
[2025-08-20] MEDS: MELATONIN 3 MG TABLET PO (23:08)
[2025-08-21] VITALS (9 sets, daily range): BP systolic 139–145; BP diastolic 66–73; PULSE 71–86; RESP 16–18; TEMP 36.6–36.8; O2SAT 90–97
[2025-08-21] MEDS: Ampicillin/Sulbactam 3 GM in 0.9% Normal Saline (100mL MB+) 100 ML IV ×3 (05:09→23:45)
[2025-08-21] MEDS: 0.9% Saline Lock 10 ML Syringe IV (05:09)
[2025-08-21] MEDS: Budesonide Respules 0.5 MG/2 ML AMPUL.NEB. INHALATION ×2 (07:14→20:05)
[2025-08-21] MEDS: Budesonide 3 MG CAPSULE.EC 6 MG PO (08:30)
[2025-08-21] MEDS: APIXABAN 2.5 MG TABLET (WCH) PO ×2 (08:31→23:01)
--- NOTE | 2025-08-21 09:47 | PCM.PN.HOSP ---
Reason for Visit Chief Complaint: Right upper extremity cellulitis secondary to right hand cat bite Subjective Subjective Patient is a 69-year-old gentleman who presented from an outside ED with right upper extremity swelling following recent cat scratch/bite Objective Data Objective Data Vital Signs: Vital Signs Temp Pulse Resp BP Pulse Ox O2 Del Method 97.8 F 84 18 145/73 H 90 Room Air 08/21/25 05:10 08/21/25 07:14 08/21/25 07:14 08/21/25 05:10 08/21/25 07:14 08/21/25 07:14 Oxygen Delivery Method Room Air Weight: 81.7 kg Body Mass Index (BMI) 29.9 Intake & Output: Intake and Output for Last 24 Hours 08/19/25 08/20/25 08/21/25 23:59 23:59 23:59 Intake Total 100 / 100 500 / 500 100 / 100 Balance 100 / 100 500 / 500 100 / 100 Lab / Micro Data 08/20/25 04:25 08/20/25 04:25 Physical Exam Narrative GENERAL: cooperative HEENT: Atraumatic; normocephalic EYES; Anicteric, Normal Conjunctiva NECK; supple, normal thyroid, RESPIRATORY: Diminished to auscultation CARDIOVASCULAR: Regular S1 S2, GI: soft, normoactive bowel sounds, : No Renal angle tenderness; EXTREMITIES: An area of induration on the left forearm MUSCULOSKELETAL: no muscle wasting NEURO: Awake; no lateralizing signs. SKIN: No Rash PSYCH; Flat affect Assessment & Plan Assessment/Plan (1) Cellulitis of right upper extremity: PLAN: Plan Patient is a 69-year-old gentleman who presented from an outside ED with right upper extremity swelling following recent cat scratch/bite 1. Right upper extremity cellulitis ? Following a cat bite. Imaging studies demonstrated right hand and forearm large amount of soft tissue swelling with no gas no foreign bodies. Subsequent imaging with CT did not demonstrate any fluid collection. Consult was placed to plastic surgery patient management broad-spectrum antibiotic therapy with Unasyn 2. History of metastatic renal CA ? Status post left nephrectomy History of non-small cell lung CA ? Patient is on immunotherapy 4. Coronary artery disease ? With previous PCI 5. Hypertension ? Blood pressure controlled, home medications continued with dose adjustment as needed 6. History of previous VTE ? Patient is on systemic anticoagulation with apixaban 7. Dyslipidemia ?Patient is on statin therapy, continued at home dose 8. GERD ? On PPI 9. History of celiac disease ? Patient is on oral budesonide 10. DVT prophylaxis ? Patient already on systemic anticoagulation with apixaban Time spent in the patient's overall evaluation,decision-making process, review of diagnostic data, adjustment of management, discussion with other providers, nursing nursing and ancillary staff involved in patient's care documentation, 40 Minutes Charges/Coding Visit Charges Inpatient E&M: 34327 Subs Hosp L2
--- NOTE | 2025-08-21 09:47 | PCM.PN.SRG ---
Subjective Subjective Doing well Reports improved pain and complaince with rest and elevation of the RUE Objective Data Objective Data Vital Signs: Vital Signs Temp Pulse Resp BP Pulse Ox O2 Del Method 97.8 F 84 18 145/73 H 90 Room Air 08/21/25 05:10 08/21/25 07:14 08/21/25 07:14 08/21/25 05:10 08/21/25 07:14 08/21/25 07:14 Oxygen Delivery Method Room Air Weight: 180 lb 1.883 oz Body Mass Index (BMI) 29.9 Intake & Output: Intake and Output for Last 24 Hours 08/19/25 08/20/25 08/21/25 23:59 23:59 23:59 Intake Total 100 / 100 500 / 500 100 / 100 Balance 100 / 100 500 / 500 100 / 100 Lab / Micro Data 08/20/25 04:25 08/20/25 04:25 Physical Exam Narrative RIGHT Upper Extremity Inspection: some blisters. Palpation: no crepitus. No streaking erythema. No fluid collections. TTP on the dorsum of the forearm is much improved today (less). No pain with axial loading of the wrist or finger joints. Less swelling. Motor: Able to bend and extend all MP, PIP, and DIP joints. Able to make a fist. Sensory: Intact to light touch on the radial and ulnar borders. Vascular: Finger tips are warm and well perfused with <2 second capillary refill. Assessment & Plan Assessment/Plan (1) Cellulitis of right upper extremity: PLAN: Improving Continue IV antibiotics and rest/elevation
--- NOTE | 2025-08-21 11:24 | CASEMGMT ---
Addendum entered by Betsy Booker 08/21/25 11:49: The called SW Back. The reported the patient has a cane and RW at home. He receives his oxygen through [employer]. The reported WC HH before. She reported he has not been diagnosed with mental health. She reported they have support with family. Addendum entered by Betsy Booker 08/21/25 11:41: SW called the and left a message. Original Note: Social Work Primary Care Doctor: Dr. Donte Hillman, [facility] doctors- oncologist0 Dr. Rodriguez Insurance: Medicare and [employer] Pharmacy: Patient utilizes [facility] in [place] Advanced directives: Patient reported he has AD. LNOK: Marital/Social History: Patient lives at home with his . There are 2 steps into the home. ADL's/Prior level of functioning: independent prior Transportation: His assist. patient does not drive. DME: WC, RW. [place] and oxygen prison/home health history: NH- no history, HH- [facility] Mental Health: no known Substance abuse history: none reported Assessment: Patient lives at home with his . There are 2 steps into the home. Patient goes to [facility] for services. REGAN La
[2025-08-22 01:00] VITALS: PULSE 78
[2025-08-22] MEDS: Ampicillin/Sulbactam 3 GM in 0.9% Normal Saline (100mL MB+) 100 ML IV ×2 (05:06→10:29)
[2025-08-22 05:07] VITALS: BP 174/63; PULSE 86
[2025-08-22 06:00] LABS: Hematocrit 32.8 % (40-54); Hemoglobin 10.6 g/dL (13.0-16.5); Immature Granulocytes Count 0.090 X10^3/uL (0.0-0.0); Mean Corp Hgb Conc 32.3 g/dL (32-36); Mean Corpuscular Volume 75.2 fL (80-94); Mean Platelet Vol. 9.4 fl (6.2-12.0); NRBC Flagged by Analyzer 0 % (0-5); Platelet Count 175 K/mm3 (150-450); RBC Distribution Width CV 15.9 % (11.6-14.6); RBC Distribution Width SD 43.7 fl (35.1-43.9); Red Blood Count 4.36 M/mm3 (4.6-6.2); White Blood Count 6.6 K/mm3 (4.4-11.0)
[2025-08-22 06:19] LABS: Anion Gap 11 (5-15); BUN 18 mg/dL (4-19); BUN/Creat Ratio 22.1 RATIO (10-20); Calcium,Total 8.4 mg/dL (7.6-11.0); Carbon Dioxide 20.2 mmol/L (21.0-32.0); Chloride 108 mmol/L (98-108); Estimated Creatinine Clearance 83.35 ml/min (50-250); Glucose 87 mg/dL (70-99); Magnesium 2.2 mg/dL (1.5-2.2); Potassium 3.7 mmol/L (3.3-5.1)
[2025-08-22 06:53] VITALS: PULSE 79; RESP 18; O2SAT 95
[2025-08-22] MEDS: Budesonide Respules 0.5 MG/2 ML AMPUL.NEB. INHALATION (06:53)
--- NOTE | 2025-08-22 08:21 | PN.SURG_ITS ---
Subjective Subjective Patient seen this morning at PCU bedside. He had his arm elevated and states the swelling is much improved. There was so purulent drainage on his dressing. Objective Data Objective Data Vital Signs: Vital Signs Temp Pulse Resp BP Pulse Ox O2 Del Method 98.2 F 86 16 174/63 H 95 Room Air 08/21/25 14:30 08/22/25 05:07 08/21/25 20:05 08/22/25 05:07 08/21/25 20:05 08/21/25 20:05 Oxygen Delivery Method Room Air Weight: 180 lb 1.883 oz Body Mass Index (BMI) 29.9 Intake & Output: Intake and Output for Last 24 Hours 08/20/25 08/21/25 08/22/25 23:59 23:59 23:59 Intake Total 500 / 500 1242.5 / 1242.5 200 / 200 Balance 500 / 500 1242.5 / 1242.5 200 / 200 Lab / Micro Data Attestation: I reviewed the patient's lab results. 08/22/25 05:15 08/22/25 05:15 Labs: Laboratory Results - last 24 hr 08/22/25 05:15: WBC 6.6, RBC 4.36 L, Hgb 10.6 L, Hct 32.8 L, MCV 75.2 L, MCH 24.3 L, MCHC 32.3, RDW Std Deviation 43.7, RDW Coeff of Kailey 15.9 H, Plt Count 175, MPV 9.4, Immature Gran % (Auto) 1.400 H, Neut % (Auto) 78.8 H, Lymph % (Auto) 10.9 L, [place] % (Auto) 6.8, Eos % (Auto) 1.8, Baso % (Auto) 0.3, Absolute Neuts (auto) 5.2, Absolute Lymphs (auto) 0.72 L, Nucleated RBC % 0, Sodium 140, Potassium 3.7, Chloride 108, Carbon Dioxide 20.2 L, Anion Gap 11, BUN 18, Creatinine 0.79, Estim Creat Clear Calc 83.35, Est GFR (MDRD) Non-Af 95, B UN/Creatinine Ratio 22.1 H, Glucose 87, Calcium 8.4, Phosphorus 2.8, Magnesium 2.2 Physical Exam Narrative Hypertensive, afebrile. Lying in bed in no acute distress watching TV. Alert and oriented Right upper extremity: Right forearm with improved erythema, edema. Induration noted with erythema extending up to medial bicep. No palpable fluid collection, no passive or expressive drainage 5/5 strength biceps, triceps, communications professional, intrinsics, wrist flexion and extension. Sensation intact to light touch. Right dorsal hand by thenar webspace with healed skin tear Assessment & Plan Assessment/Plan (1) Cellulitis of right upper extremity: PLAN: No surgical interventions indicated or anticipated at this time. Continue broad spectrum antibiotics with coverage of feline bacteria. Continue elevation as long as swelling persists. OK to discharge plan from Plastics standpoint. We will follow up with the patient outpatient 08/24. Charges/Coding Visit Charges Inpatient E&M: 62374 Subs Hosp L2
[2025-08-22 10:16] VITALS: BP 140/60; PULSE 84; RESP 18; TEMP 36.9; O2SAT 98
[2025-08-22] MEDS: Budesonide 3 MG CAPSULE.EC 6 MG PO (10:18)
[2025-08-22] MEDS: APIXABAN 2.5 MG TABLET (WCH) PO (10:18)
--- NOTE | 2025-08-22 10:22 | DS.PCM_ITS ---
Providers Date of Admission: 08/19/25 Primary Care Physician: Dr. Jacob Jennings, Consultations 08/20/25 08:27 Consult: Plastic Surgery Routine Consulting Provider: Artemio Farrar Reason for Consult: right hand cat bite, blister.cellulitis EMERGENT Consult: No MD Notified: Yes Date Notified: 08/20/25 Time Notified: 08:27 Method of Notification: Verbal Reason For Visit: CELLULITIS RT ARM, R/O SEPSIS Diagnosis Discharge Diagnosis (1) Cellulitis of right upper extremity: Status: Acute Code(s): L03.113 - Cellulitis of right upper limb Plan Patient is a 69-year-old gentleman who presented from an outside ED with right upper extremity swelling following recent cat scratch/bite 1. Right upper extremity cellulitis ? Following a cat bite. Imaging studies demonstrated right hand and forearm large amount of soft tissue swelling with no gas no foreign bodies. Subsequent imaging with CT did not demonstrate any fluid collection. Consult was placed to plastic surgery patient management broad-spectrum antibiotic therapy with Unasyn ? 08/22/2025; wound cultures not sent on admission decision was made to discharge patient on broad-spectrum antibiotic therapy on discharge with doxycycline, Augmentin as well as Bactrim in view of patient being immunocompromised 2. History of metastatic renal CA ? Status post left nephrectomy History of non-small cell lung CA ? Patient is on immunotherapy 4. Coronary artery disease ? With previous PCI 5. Hypertension ? Blood pressure controlled, home medications continued with dose adjustment as needed 6. History of previous VTE ? Patient is on systemic anticoagulation with apixaban 7. Dyslipidemia ?Patient is on statin therapy, continued at home dose 8. GERD ? On PPI 9. History of celiac disease ? Patient is on oral budesonide 10. DVT prophylaxis ? Patient already on systemic anticoagulation with apixaban Time spent in the patient's overall evaluation,decision-making process, review of diagnostic data, adjustment of management, discussion with other providers, nursing nursing and ancillary staff involved in patient's care documentation, 35 Minutes Medications at Discharge Home Medications rosuvastatin 40 mg tablet (Crestor) 40 mg PO QHS CHOLESTEROL 08/18/18 carvedilol 25 mg tablet 25 mg PO BID blood pressure 04/30/21 hydralazine 50 mg tablet 50 mg PO BID blood pressure 05/31/21 amlodipine 10 mg tablet 10 mg PO DAILY #90 tabs 08/21/23 pembrolizumab 25 mg/mL intravenous solution (Keytruda) 200 mg IV Q21D Kidney cancer 12/14/24 fluticasone fur. 100 mcg-umeclid 62.5 mcg-vilant 25 mcg inhalat.powder (Trelegy Ellipta) 1 inh inhalation QDAY #60 ea 06/09/25 ipratropium 0.5 mg-albuterol 3 mg (2.5 mg base)/3 mL nebulization soln 3 ml inhalation Q4H PRN shortness of breath or wheezing #180 mL 06/09/25 triamcinolone acetonide 0.1 % topical cream 1 applic topical DAILY itching of legs 06/09/25 budesonide 3 mg capsule,delayed,extended release 6 mg PO QDAY ciliac disease 08/04/25 apixaban 5 mg tablet (Eliquis) 2.5 mg PO DAILY blood thinner 08/19/25 omeprazole 20 mg capsule,delayed release 20 mg PO DAILY Gastric burning 08/19/25 apixaban 2.5 mg tablet (Eliquis) 2.5 mg PO BID blood thinner 08/20/25 amoxicillin 875 mg-potassium clavulanate 125 mg tablet 1 tab PO BID 7 days #14 tabs 08/22/25 doxycycline hyclate 100 mg capsule 100 mg PO BID 7 days #14 caps 08/22/25 sulfamethoxazole 800 mg-trimethoprim 160 mg tablet (Bactrim DS) 1 tab PO BID #14 tabs 08/22/25 Physical Exam Narrative GENERAL: cooperative HEENT: Atraumatic; normocephalic EYES; Anicteric, Normal Conjunctiva NECK; supple, normal thyroid, RESPIRATORY: Diminished to auscultation CARDIOVASCULAR: Regular S1 S2, GI: soft, normoactive bowel sounds, : No Renal angle tenderness; EXTREMITIES: An area of induration on the left forearm MUSCULOSKELETAL: no muscle wasting NEURO: Awake; no lateralizing signs. SKIN: No Rash PSYCH; Flat affect Weight / BMI Weight Weight: 81.7 kg Body Mass Index (BMI) 29.9 ABG / Lab / Microbiology Data 08/22/25 05:15 08/22/25 05:15 Laboratory: Laboratory Results - last 24 hr 08/22/25 05:15: WBC 6.6, RBC 4.36 L, Hgb 10.6 L, Hct 32.8 L, MCV 75.2 L, MCH 24.3 L, MCHC 32.3, RDW Std Deviation 43.7, RDW Coeff of Kailey 15.9 H, Plt Count 175, MPV 9.4, Immature Gran % (Auto) 1.400 H, Neut % (Auto) 78.8 H, Lymph % (Auto) 10.9 L, [place] % (Auto) 6.8, Eos % (Auto) 1.8, Baso % (Auto) 0.3, Absolute Neuts (auto) 5.2, Absolute Lymphs (auto) 0.72 L, Nucleated RBC % 0, Sodium 140, Potassium 3.7, Chloride 108, Carbon Dioxide 20.2 L, Anion Gap 11, BUN 18, Creatinine 0.79, Estim Creat Clear Calc 83.35, Est GFR (MDRD) Non-Af 95, B UN/Creatinine Ratio 22.1 H, Glucose 87, Calcium 8.4, Phosphorus 2.8, Magnesium 2.2 D/C Instructions Discharge Activity: Return to Normal Activity Call your doctor if you observe: Fever of 101 or Higher, Shortness of breath, Fainting spells and Chest pain DC O2, CPAP, BIPAP Needs Home O2 Discharge instructions: No Meaningful Use Info Meaningful Use Meaningful Use Diagnoses (Choose all that apply): None applicable Discharge Plan Admission Admit Date/Time: 08/19/25 19:52 Attending Provider: Antwan Pitts Primary Care Provider: Jacob Jennings Consulting Providers: Chris Medina; Artemio Farrar; Emmanuel Kaiser Discharge Orders/Prescriptions Prescriptions: New doxycycline hyclate 100 mg capsule 100 mg PO BID 7 Days Qty: 14 0RF amoxicillin-pot clavulanate 875-125 mg tablet 1 tab PO BID 7 Days Qty: 14 0RF sulfamethoxazole-trimethoprim [Bactrim DS] 800-160 mg tablet 1 tab PO BID Qty: 14 0RF Continued carvedilol 25 mg tablet 25 mg PO BID Rx Instructions: must administer with a meal/food amlodipine 10 mg tablet 10 mg PO DAILY Qty: 90 3RF triamcinolone acetonide 0.1 % cream 1 applic topical DAILY ipratropium-albuterol 0.5 mg-3 mg(2.5 mg base)/3 mL solution for nebulization 3 ml inhalation Q4H PRN (Reason: shortness of breath or wheezing) Qty: 180 3RF Trelegy Ellipta 100-62.5-25 mcg blister with device 1 inh inhalation QDAY Qty: 60 3RF Rx Instructions: administer at approximately the same time(s) each day budesonide 3 mg capsule,delayed,extend.release 6 mg PO QDAY rosuvastatin [Crestor] 40 MG tablet 40 mg PO QHS Keytruda 25 mg/mL solution 200 mg IV Q21D omeprazole 20 mg capsule,delayed release(DR/EC) 20 mg PO DAILY Eliquis 5 mg tablet 2.5 mg PO DAILY Eliquis 2.5 mg tablet 2.5 mg PO BID hydralazine 50 mg tablet 50 mg PO BID Referrals / Follow Up: Jacob Jennings DO [Primary Care Provider, Family Practice] Artemio Farrar MD [Med Staff - Active Staff, Plastic Surgery] - Within 1 Week Disposition Disposition (needs filled in before D/C Order can be placed): Home, Self Care Charges/Coding Visit Charges Inpatient E&M: 93295 Disch Hosp >30min
--- NOTE | 2025-08-22 10:44 | CASEMGMT ---
Pt has an order for DC placed. LUPE CM to the pt room at this time. Pt sitting up in the chair and is calm. Pt is currently 98% on RA and does not qualify for an updated O2 Rx. Pt declines the need for portability for the transit home. Pt states that his is picking him up for DC home today and that she can bring in a portable tank if needed. Pt states that he feels safe returning home today and denies further questions, concerns, or needs.
== END 2025-08-22 11:56 | disposition home or self-care (01) | DRG 603 ==
PROVIDERS: Admitting Provider Hospitalist; PCP Family Medicine; Visit Provider Internal Medicine
DX: L03.113 Cellulitis of right upper limb (principal); C77.9 Secondary and unspecified malignant neoplasm of lymph node, unspecified; C34.31 Malignant neoplasm of lower lobe, right bronchus or lung; C64.1 Malignant neoplasm of right kidney, except renal pelvis; C78.01 Secondary malignant neoplasm of right lung; C79.31 Secondary malignant neoplasm of brain; C79.71 Secondary malignant neoplasm of right adrenal gland; D50.0 Iron deficiency anemia secondary to blood loss (chronic); E86.0 Dehydration; Z66 Do not resuscitate; E11.9 Type 2 diabetes mellitus without complications; J44.9 Chronic obstructive pulmonary disease, unspecified; I10 Essential (primary) hypertension; E78.5 Hyperlipidemia, unspecified; I25.10 Atherosclerotic heart disease of native coronary artery without angina pectoris; K21.9 Gastro-esophageal reflux disease without esophagitis; K90.0 Celiac disease; Z87.891 Personal history of nicotine dependence; Z79.51 Long term (current) use of inhaled steroids; Z86.711 Personal history of pulmonary embolism; Z79.01 Long term (current) use of anticoagulants; Z95.5 Presence of coronary angioplasty implant and graft; Z90.5 Acquired absence of kidney; Z86.718 Personal history of other venous thrombosis and embolism; Z79.899 Other long term (current) drug therapy; Z79.52 Long term (current) use of systemic steroids; Z85.53 Personal history of malignant neoplasm of renal pelvis; Z92.25 Personal history of immunosuppression therapy; Z85.841 Personal history of malignant neoplasm of brain
CPT/HCPCS: 36415; 36591; 73200; 80048; 80053; 83735; 84100; 84439; 84443; 85025; 94640; 96413; A4216; J0295; J9271

== ENCOUNTER → 2025-10-12 | Outpatient (CLI) | payer MEDICARE, OTHER, SELFPAY ==
--- NOTE | 2025-10-12 12:28 | CT_ITS ---
PROCEDURE: CT CHEST, ABD, PEL W/CONTRAST 10/12/2025 REASON FOR EXAM: MET RENAL CA; ASSESS RESPONSE TO TREATMENT TECHNIQUE: Chest, abdomen and pelvis CT with intravenous contrast. Coronal and Sagittal reconstruction series were provided. One or more dose reduction techniques were used (e.g., Automated exposure control, adjustment of the mA and/or kV according to patient size, use of iterative reconstruction technique. PATIENT PREPARATION: Per protocol ORAL CONTRAST TYPE: None. CONTRAST: 100 cc of Isovue 370. COMPARISON: CT chest, abdomen and pelvis 06/28/2025 FINDINGS: CT CHEST: Hardware: None. Lymph nodes: Nonenlarged mediastinal, hilar, or axillary lymph nodes. Heart and Vasculature: Nonenlarged. No pericardial effusion. Moderate coronary artery atherosclerotic calcifications. Atherosclerotic calcifications of the thoracic aorta. Pulmonary arteries are unremarkable. Lungs and Airways: Grossly unchanged bilateral pulmonary nodules, the largest on the right measures 13 x 8 mm, the largest on the left measures 9 x 7 mm. Pleura: No pneumothorax or pleural effusion. Bones: Interval development of a destructive lesion in the T12 vertebral body measuring 3.2 x 3.0 x 1.8 cm. The lesion appears to protrude a proximally 8 mm into the spinal canal, which may result in cord compression. CT ABDOMEN/PELVIS: Liver: Mildly enlarged measuring 18.6 cm craniocaudally. No obvious hepatic mass. Gallbladder: Unremarkable. No biliary ductal dilatation. Spleen: Enlarged measuring 14.3 cm in long axis. Pancreas: Normal size without evidence of mass surrounding inflammation or ductal dilation. Adrenals: No adrenal masses. Kidneys: Redemonstrated left nephrectomy. The three notable right renal masses appear grossly unchanged measuring 5.8 x 5.6 x 5.0 cm in the upper pole, 3.6 x 3.9 x 3.7 cm in the midpole, and 1.9 x 1.8 x 1.6 cm in the lower pole. Numerous multiple smaller exophytic right renal masses are again noted and also grossly unchanged, the largest measures 9.6 mm. 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 Punctate 2 mm right renal calculus. No hydronephrosis. Bladder: Unremarkable. Reproductive Organs: Prostate nonenlarged. Coarse prostatic calcifications. No pelvic masses. Bowel: No bowel obstruction. No inflammatory changes. Appendix: Normal. Lymph nodes: Slightly decreased size of the lobulated right infrarenal retroperitoneal mass abutting the aorta and IVC measuring 3.4 x 4.9 x 4.7 cm. Please note that this was present and measured 3.6 x 5.3 x 5.2 cm on 06/28/2025 but was not reported. Vasculature: Moderate atherosclerotic calcifications. No aneurysm. Peritoneum / Retroperitoneum: No free fluid or air. Bones: Degenerative changes of the lumbar spine. No destructive osseous lesions. No acute fractures. Soft tissues: Small fat containing bilateral inguinal hernias, [id number]-left. CT/CT Chest, Abd, Pel w/Contrast IMPRESSION: 1. Redemonstrated multiple right renal masses, notable lesions measure 5.8 x 5. 6 x 5.0 cm, 3.6 x 3.9 x 3.7 cm, and 1.9 x 1.8 x 1.6 cm. 2. Slightly decreased size of the lobulated right infrarenal retroperitoneal ma ss abutting the aorta and IVC measuring 3.4 x 4.9 x 4.7 cm (measured 3.6 x 5.3 x 5.2 cm on 06/28/2025 but was not reported). 3. New destructive lesion in the T12 vertebral body measuring 3.2 x 3.0 x 1.8 c m. Apparent 8 mm protrusion of the lesion into the spinal canal may result in cord compression. Clinical correlation suggeste d. 4. Grossly unchanged multiple bilateral pulmonary nodules measuring up to 13 x 8 mm on the right and 9 x 7 mm on the left. 5. Mild hepatomegaly and splenomegaly. 6. Right kidney lower pole angiomyolipoma measures 2.4 x 1.7 x 1.5 cm. Reading Location: [facility]
== END | disposition home or self-care (01) ==
PROVIDERS: PCP Family Medicine; Referring Provider Nurse Practitioner Family; Visit Provider Nurse Practitioner Family
DX: C64.1 Malignant neoplasm of right kidney, except renal pelvis (principal); C77.9 Secondary and unspecified malignant neoplasm of lymph node, unspecified
CPT/HCPCS: 71260; 74177; Q9967; A4216

== ENCOUNTER → 2025-10-17 | Outpatient (CLI) | payer MEDICARE, OTHER, SELFPAY ==
--- NOTE | 2025-10-17 06:36 | NM_ITS ---
PROCEDURE: BONE SCAN WHOLE BODY 10/17/2025 REASON FOR EXAM: NEW BONE LESION, MET RCC TECHNIQUE: Procedure Code: NMBO Modality: NM Procedure: BONE SCAN WHOLE BODY Whole-body delayed images RADIOPHARMACEUTICAL: 27.5 mCi technetium 99 M medronate COMPARISON: Chest CT dated October 12, 2025 FINDINGS: There is marked increased radiotracer activity corresponding to the destructive and expansile lesion in the T12 vertebral body. There is moderate increased activity in the posterior left 7th rib which corresponds to a lytic expansile lesion on the CT, axial image 52-57/130. There is mild increased activity in the lower cervical spine, midline, corresponding with hardware in this region. Left renal activity appears absent. NM/Bone Scan Whole Body IMPRESSION: There is marked increased radiotracer activity corresponding to the destructive and expansile lesion in the T12 vertebral body. There is moderate increased activity in the posterior left 7th rib which corres ponds to a lytic expansile lesion on the CT, axial image 52-57/130. Reading Location: [facility]
--- OUTSIDE RECORDS SUMMARY | 2025-10-17 06:43 | XMS RPT_ITS | CCD ---
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 Jacob Jennings Primary Care Provider Dr. Jacob Jennings Referring Provider Dr. Angela Rodriguez Attending Provider Dori CHARGE OUT CLERK, CHARGE OUT CLERK-C Verón[place] Attending Provider Dr. Thien Sandoval Attending Provider 1([facility])[phone] Jacob Jennings Primary Care Provider Dr. Jacob Jennings Referring Provider Dr. Angela Rodriguez Attending Provider IVETH Rios Attending Provider [phone] Dr. Thien Sandoval Attending Provider Dori CHARGE OUT CLERK, CHARGE OUT CLERK-C Verónica Attending Provider Dr. Jacob Jennings Primary Care Provider Dr. Jacob Jennings Referring Provider Dr. Angela Rodriguez Attending Provider IVETH Rios Attending Provider Dr. Thien Sandoval Attending Provider 1([facility])[phone] Dori CHARGE OUT CLERK, CHARGE OUT CLERK-C Verónica Attending Provider Dr. Percy Tao Attending Provider Dr. Jacob Jennings Primary Care Provider 1([facility] )[phone] Dr. Jacob Jennings Referring Provider Dr. Angela Rodriguez Attending Provider Dr. Jacob Jennings Primary Care Provider Dr. Jacob Jennings Referring Provider Dr. Angela Rodriguez Attending Provider MD Mahesh Menon Emergency Provider Koram, Dr. Amber Angel Admit Provider Koram, Dr. Amber Angel Other Provider Job, Dr. Benitez Attending Provider Job, Dr. Benitez Other Provider DICK TAYLOR, DR JAMES Primary Care Physician KINSEY KING MD Attending Unavailable DICK TAYLOR, DR. JAMES Primary Care [facility] ble Dr. Jacob Jennings Primary Care Provider [phone] Dr. Jacob Jennings Referring Provider Dori CHARGE OUT CLERK, CHARGE OUT CLERK-C Verónica Attending Provider Dr. Benito Malcolm Attending Provider Dr. Benito Malcolm Referring Provider Dr. Benito Malcolm Other Provider Dr. Thaddeus Patel Attending Provider Dr. Jacob Jennings Primary Care Provider Dr. Jacob Jennings Referring Provider Dr. Angela Rodriguez Attending Provider Dori CHARGE OUT CLERK, CHARGE OUT CLERK-C Verónica Attending Provider Dr. Percy Tao Attending Provider MD Mahesh Menon Emergency Provider Koram, Dr. Amber Angel Admit Provider Koram, Dr. Amber Angel Other Provider Job, Dr. Benitez Attending Provider Dr. Emmanuel Kaiser Other Provider Dr. Benito Malcolm Attending Provider Dr. Benito Malcolm Referring Provider Dr. Benito Malcolm Other Provider Dr. Thaddeus Patel Attending Provider Dr. Pineda Porter Attending Provider Dr. Jacob Jennings Primary Care Provider Dr. Jacob Jennings Referring Provider Dr. Angela Rodriguez Attending Provider Dr. Thien Sandoval Attending Provider Dr. Jacob Jennings Primary Care Provider Dick, Dr. James Referring Provider 1([facility])[phone] Dori CHARGE OUT CLERK, CHARGE OUT CLERK-C Verónica Attending Provider Dr. Percy Tao Attending Provider Dr. Jacob Jennings Primary Care Provider Dr. Jacob Jennings Referring Provider Dr. Benito Malcolm Attending Provider Dr. Angela Rodriguez Attending Provider Dori CHARGE OUT CLERK, CHARGE OUT CLERK-C Verónica Attending Provider Uzair ANTOINE, CHARGE OUT CLERK-C Monalisa Attending Provider Dr. Jacob Jennings Primary Care Provider Dr. Jacob Jennings Referring Provider Dr. Angela Rodriguez Attending Provider Dr. Pineda Porter Attending Provider Dr. Thien Sandoval Attending Provider Dr. Percy Tao Attending Provider Dori CHARGE OUT CLERK, CHARGE OUT CLERK-C Verónica Attending Provider Uzair ANTOINE, CHARGE OUT CLERK-C Monalisa Attending Provider [phone] Dr. Indio Simon Emergency Provider [phone] Tara Mae Admit Provider Dr. Tara Mae Other Provider Dr. Thaddeus Patel Attending Provider Dr. Thaddeus Patel Other Provider Dr. Benito Malcolm Other Provider Dr. Tu Zhang Other Provider Telly, Dr. Oneal Other Provider Unavailab demetrius Dunne CHARGE OUT CLERK, CHARGE OUT CLERK-C Monalisa Other Provider Dr. Khalif Quevedo Other Provider Reyes, Dr. Rodriguez Attending Provider Dr. Tara Mae Attending Provider Dr. Benito Malcolm Attending Provider Dr. Khalif Quevedo Attending Provider Jacob Jennings DO Primary Care Provider Jacob Jennings Primary Care Provider Dr. Jacob Jennings Primary Care Provider Dr. Jacob Jennings Referring Provider Dr. Angela Rodriguez Attending Provider Dr. Percy Tao Attending Provider Dr. Indio Simon Emergency Provider [phone] Tara Mae Admit Provider Dr. Tara Mae Other Provider Dr. Thaddeus Patel Attending Provider Dr. Thaddeus Ptael Other Provider Dr. Benito Malcoml Other Provider Dr. Tu Zhang Other Provider Dr. Jm Varner Other Provider Unavailab demetrius Dunne CHARGE OUT CLERK, CHARGE OUT CLERK-C Monalisa Other Provider Dr. Khalif Quevedo Referring Provider Dr. Khalif Quevedo Other Provider Reyes, Dr. Rodriguez Attending Provider Dr. Tara Mae Attending Provider Dr. Benito Malcolm Attending Provider Dr. Khalif Quevedo Attending Provider Dr. Jacob Jennings Primary Care Provider [phone] Dr. Jacob Jennings Referring Provider Dori CHARGE OUT CLERK, CHARGE OUT CLERK-C Verónica Attending Provider Uzair CHARGE OUT CLERK, CHARGE OUT CLERK-C Monalisa Attending Provider Dr. Angela Rodriguez Attending Provider Dr. Thien Sandoval Attending Provider Dr. Bentio Malcolm Attending Provider Dr. Jacob Jennings Primary Care Provider Dr. Jacob Jennings Referring Provider Dr. Angela Rodriguez Attending Provider Dori CHARGE OUT CLERK, CHARGE OUT CLERK-C Verónica Attending Provider Dr. Thien Sandoval Attending Provider Dr. Benito Malcolm Attending Provider Dr. Angela Rodriguez Referring Provider Jacob Jennings DO Primary Care Provider Dr. Jacob Jennings Primary Care Provider Dr. Jacob Jennings Referring Provider Dr. Angela Rodriguez Attending Provider PROVIDER, UNKNOWN Referring Unavailable JACOB JENNINGS Primary Care Unavailable PROVIDER, UNKNOWN Referring Unavailable JACOB JENNINGS Primary Care Unavailable JACOB JENNINGS Primary Care Unavailable PROVIDER, UNKNOWN Referring Unavailable Jacob Jennings DO Primary Care Provider Dr. Jacob Jennings Primary Care Provider Dr. Angela Rodriguez Attending Provider Dr. Jacob Jennings Referring Provider Dr. Lj Piña Attending Provider Dori CHARGE OUT CLERK, CHARGE OUT CLERK-C Verónica Attending Provider Uzair CHARGE OUT CLERK, CHARGE OUT CLERK-C Monalisa Attending Provider Johanna Flynn Attending Provider Unavailabl Dr. Thien Srivastava Attending Provider Dr. Jacob Jennings Primary Care Provider Dr. Jacob Jennings Referring Provider Dr. Angela Rodriguez Attending Provider Dr. Lj Piña Attending Provider Dori CHARGE OUT CLERK, CHARGE OUT CLERK-C Verónica Attending Provider Uzair CHARGE OUT CLERK, CHARGE OUT CLERK-C Monalisa Attending Provider Johanna Flynn Attending Provider Unavailabl Dr. Thien Srivastava Attending Provider Dr. Greg Sutherland Attending Provider Dr. Jacob Jennings Primary Care Provider Dr. Jacob Jennings Referring Provider Dr. Angela Rodriguez Attending Provider Dr. Saige Day Attending Provider Dr. Greg Sutherland Referring Provider Dr. Greg Sutherland Other Provider Dr. Greg Sutherland Admit Provider Dr. Antwan Covington Attending Provider Unavail able Dr. Antwan Covington Other Provider Unavailabl e Dr. Antwan Pitts Attending Provider Unavailable Dr. Antwan Pitts Other Provider Unavailable Dick TAYLOR, Jacob Robin Primary Care Provider [phone] Piperpiper , Jacob Catherine Primary Care Provide r Piperpiper , Jacob Robin Primary Care Provider Dick TAYLOR, Dr. James Primary Care Provider Dick TAYLOR, Dr. James Referring Provider Reyes TAYLOR, Dr. Rodriguez Attending Provider Gage Rios Attending Provider Lynsey BAUTISTA, Mahesh Referring Provider Lynsey BAUTISTA, Mahesh Emergency Provider Alfredo BAUTISTA, Dr. Sayra Augustin Admit Provider Alfredo BAUTISTA, Dr. Sayra Augustin Other Provider Emory BAUTISTA, Dr. Amber Angel Attending Provider Emory BAUTISTA, Dr. Amber Angel Other Provider Dori CHARGE OUT CLERK-C, Verónica Attending Provider Aurora BAUTISTA, Dr. Borjas Attending Provider Aurora BAUTISTA, Dr. Borjas Emergency Provider Adam TAYLOR, Dr. Perez Attending Provider Adam TAYLOR, Dr. Perez Admit Provider Adam TAYLOR, Dr. Perez Other Provider [phone] Reymundo BAUTISTA, Dr. Dalal Other Provider Unavailab demetrius Pitts MD, Dr. Moncada Other Provider Unavailable Hal BAUTISTA, Dr. Evelio Robin Attending Provider Reymundo BAUTISTA, Dr. Dalal Attending Provider Gisel Narvaez MD, Dr. Denny Attending Provider Kacey BAUTISTA, Dr. Frank Other Provider Omayra BAUTISTA, Dr. López Other Provider Jorge BAUTISTA, Dr. Travis Other Provider Dr. Benito Malcolm DO Other Provider Malina BAUTISTA, Dr. Antwan Dee Other Provider Shyam BAUTISTA, Dr. Cortes Other Provider [phone] Mary BAUTISTA, Dr. Crocker Other Provider [phone] Mounika BAUTISTA, Dr. Sanchez Other Provider [phone] Angel BAUTISTA, Dr. Beckham Other Provider [phone] Delonte BAUTISTA, Dr. De Other Provider [phone] Tavon BAUTISTA, Dr. Berry Other Provider Mark BAUTISTA, Dr. Rodgers Other Provider Rosalio BAUTISTA, Dr. Nair Other Provider Unavailabl carroll Almaraz MD, Dr. Urbina Other Provider [phone] Nathaly BAUTISTA, Dr. Lopes Other Provider [phone] Joanna BAUTISTA, Dr. Canales Other Provider Dez BAUTISTA, Dr. Burrell Other Provider [phone] Emelina TAYLOR, Dr. Villaseñor Other Provider Jacklyn BAUTISTA, Dr. Hoffman Other Provider [phone] Jannette BAUTISTA, Dr. Bergman Other Provider [phone] Maria Esther TAYLOR, Dr. Santillan Other Provider El BAUTISTA, Dr. Cochran Other Provider Ahmet BAUTISTA, Dr. May Other Provider Dr. Chris Medina DO Referring Provider Dr. Benito Malcolm DO Attending Provider Hong BAUTISTA, Dr. Moncada Referring Provider Rose Pitts MD, Dr. Moncada Attending Provider Rose Hong MD, Dr. Evelio Robin Other Provider Michael BAUTISTA, Dr. Miller Attending Provider Michael BAUTISTA, Dr. Miller Referring Provider Aung TAYLOR, Dr. Cuadra Emergency Provider Alfredo BAUTISTA, Dr. Sayra Augustin Attending Provider Job BAUTISTA, Dr. Benitez Other Provider Job BAUTISTA, Dr. Benitez Attending Provider Michael BAUTISTA, Dr. Miller Referring Provider Dick TAYLOR, Dr. James Primary Care Provider Dick TAYLOR, Dr. James Referring Provider Reyes TAYLOR, Dr. Rodriguez Attending Provider Alfredo BAUTISTA, Dr. Sayra Augustin Referring Provider Michael BAUTISTA, Dr. Miller Referring Provider Dick TAYLOR, Dr. James Primary Care Provider [phone] Alfredo BAUTISTA, Dr. Sayra Augustin Admit Provider Alfredo BAUTISTA, Dr. Sayra Augustin Other Provider Dick TAYLOR, Dr. James Primary Care Provider Dick TAYLOR, Dr. James Referring Provider Dori ANTOINE-C, Verónica Attending Provider Michael BAUTISTA, Dr. Miller Referring Provider Dick TAYLOR, Dr. James Primary Care Provider Dick TAYLOR, Dr. James Referring Provider Michael BAUTISTA, Dr. Miller Attending Provider Reyes TAYLOR, Dr. Rodriguez Attending Provider Aung TAYLOR, Dr. Cuadra Emergency Provider Alfredo BAUTISTA, Dr. Sayra Augustin Admit Provider Alfredo BAUTISTA, Dr. Sayra Augustin Other Provider Hal BAUTISTA, Dr. Evelio Robin Attending Provider Job BAUTISTA, Dr. Benitez Other Provider Alfredo BAUTISTA, Dr. Sayra Augustin Referring Provider Job BAUTISTA, Dr. Benitez Attending Provider Hal BAUTISTA, Dr. Evelio Robin Other Provider Dori CHARGE OUT CLERK-C, Verónica Attending Provider Michael BAUTISTA, Dr. Miller Referring Provider Dick TAYLOR, Dr. James Primary Care Provider [phone] Dick TAYLOR, Dr. James Referring Provider Michael BAUTISTA, Dr. Miller Attending Provider Uzair CHARGE OUT CLERK-C, Monalisa Attending Provider Dick TAYLOR, Dr. James Primary Care Provider [phone] Dick TAYLOR, Dr. James Referring Provider Reyes TAYLOR, Dr. Rodriguez Attending Provider Michael BAUTISTA, Dr. Miller Attending Provider Hal BAUTISTA, Dr. Evelio Robin Attending Provider Hal BAUTISTA, Dr. Evelio Robin Other Provider Uzair ANTOINE-C, Monalisa Attending Provider Michael BAUTISTA, Dr. Miller Referring Provider Dick TAYLOR, Dr. James Primary Care Provider Dick TAYLOR, Dr. James Referring Provider Reyes TAYLOR, Dr. Rodriguez Attending Provider Michael BAUTISTA, Dr. Miller Referring Provider Dick TAYLOR, Dr. James Primary Care Provider Dick TAYLOR, Dr. James Referring Provider Reyes TAYLOR, Dr. Rodriguez Attending Provider Michael BAUTISTA, Dr. Miller Referring Provider Dick TAYLOR, Dr. James Primary Care Physician Dick TAYLOR, Dr. James Referring Provider Dori CHARGE OUT CLERK-C, Verónica Attending Physician Reyes TAYLOR, Dr. Rodriguez Attending Physician Michael BAUTISTA, Dr. Miller Attending Physician Uzair CHARGE OUT CLERK-C, Monalisa Attending Physician Dick TAYLOR, Dr. James Primary Care Physician Dick TAYLOR, Dr. James Referring Provider Dori CHARGE OUT CLERK-C, Verónica Attending Physician Reyes TAYLOR, Dr. Rodriguez Attending Physician Jaime BAUTISTA, Dr. Neumann Attending Physician Dick TAYLOR, Dr. James Primary Care Physician Dick TAYLOR, Dr. James Referring Provider [phone] Michael BAUTISTA, Dr. Miller Attending Physician FEGATELLI, KESHA Referring Unavailable [facility] Primary Care Unavail able FEGATELLI, KESHA Referring Unavailable [facility] Primary Care Unavail able KHAYYAT, FRANCOIS F Referring Unavailable [facility] Primary Care Unavail able KHAYYAT, FRANCOIS F Referring Unavailable [facility] Primary Care Unavail able FEGATELLI, KESHA Referring Unavailable [facility] Primary Care Unavail able FEGATELLI, KESHA Referring Unavailable [facility] Primary Care Unavail able KHAYYAT, FRANCOIS F Attending Unavailable FEGATELLI, KESHA Referring Unavailable [facility] Primary Care Unavail able KHAYYAT, FRANCOIS F Attending Unavailable KHAYYAT, FRANCOIS F Referring Unavailable [facility] Primary Care Unavail able KHAYYAT, FRANCOIS F Attending Unavailable FEGATELLI, KESHA Referring Unavailable [facility] Primary Care Unavail able Petrilla DO, Dr. James Primary Care Physician Dick TAYLOR, Dr. James Referring Provider Michael BAUTISTA, Dr. Miller Attending Physician Uzair CHARGE OUT CLERK-C, Monalisa Attending Physician Dori CHARGE OUT CLERK-C, Verónica Attending Physician Reyes TAYLOR, Dr. Rodriguez Attending Physician Jaime BAUTISTA, Dr. Neumann Attending Physician Adam TAYLOR, Dr. Perez Admitting Physician Adam TAYLOR, Dr. Perez Nurse Practitioner Leni BAUTISTA, Dr. Ulloa Nurse Practitioner Hong BAUTISTA, Dr. Moncada Attending Physician Unavail able Job BAUTISTA, Dr. Benitez Nurse Practitioner Job BAUTISTA, Dr. Benitez Attending Physician Leni BAUTISTA, Dr. Ulloa Attending Physician Hong BAUTISTA, Dr. Moncada Nurse Practitioner Unavaila ble Lalo LAZARO, Anastacia Attending Physician Petrilla, Jacob Primary Care Unavailable Petrilla, Jacob Referring Unavailable Dori CHARGE OUT CLERK, Verónica Attending Unavailable Dori CHARGE OUT CLERK, Verónica Attending Unavailable Petrilla, Jacob Primary Care Unavailable Petrilla, Jacob Referring Unavailable Michael Chambers Attending Unavailable Petrilla, Jacob Primary Care Unavailable Petrilla, Jacob Referring Unavailable Isckarus, Mansour Attending Unavailable Petrilla, Jacob Primary Care Unavailable Petrilla, Jacob Referring Unavailable White, Sayra L Consulting Unavailable Petrilla, Jacob Primary Care Unavailable White, Sayra L Admitting Unavailable Emmanuel Kaiser Attending Unavailable Emmanuel Kaiser Consulting Unavailable White, Sayra L Consulting Unavailable Reodica, Mahesh Referring Unavailable Petrilla, Jacob Primary Care Unavailable White, Sayra L Attending Unavailable White, Sayra L Admitting Unavailable Koram, Amber Jeanne Attending Unavailable Koram, Amber Jeanne Consulting Unavailable Isckarus, Mansour Referring Unavailable Isckarus, Mansour Attending Unavailable Petrilla, Jacob Primary Care Unavailable Petrilla, Jacob Primary Care Unavailable Adam, Chris Admitting Unavailable Adam Chris Consulting Unavailable Chris Medina Attending Unavailable Petrilla, Jacob Primary Care Unavailable Adam Chris Admitting Unavailable Adam Chris Consulting Unavailable Chris Medina Attending Unavailable Katlin Dwyer Consulting Unavailable Antwan Pitts Consulting Unavailable Friend, Michael Attending Unavailable Petrilla, Jacob Primary Care Unavailable Petrilla, Jacob Referring Unavailable Petrilla, Jacob Primary Care Unavailable Friend, Michael Attending Unavailable Petrilla, Jacob Referring Unavailable Petrilla, Jacob Primary Care Unavailable Gage Rios Attending Unavailable Petrilla, Jacob Referring Unavailable Dori CHARGE OUT CLERK, Verónica Attending Unavailable Petrilla, Jacob Primary Care Unavailable Petrilla, Jacob Referring Unavailable Petrilla, Jacob Referring Unavailable Greg Sutherland Attending Unavailable Petrilla, Jacob Primary Care Unavailable Dori CHARGE OUT CLERK, Verónica Attending Unavailable Petrilla, Jacob Primary Care Unavailable Petrilla, Jacob Referring Unavailable Isckarus, Angela Attending Unavailable Isckarus, Mansour Referring Unavailable Petrilla, Jacob Primary Care Unavailable Petrilla, Jacob Primary Care Unavailable Indio Simon Attending Unavailable Sayra Fuentes Admitting Unavailable Evelio Hong Attending Unavailable Petrilla, Jacob Primary Care Unavailable Sayra Fuentes Consulting Unavailable Job, Emmanuel Consulting Unavailable Petrilla, Jacob Primary Care Unavailable Chris Medina Admitting Unavailable Chris Medina Consulting Unavailable Evelio Hong Attending Unavailable Katlin Dwyer Consulting Unavailable Antwan Pitts Consulting Unavailable Petrilla, Jacob Primary Care Unavailable Chris Medina Consulting Unavailable Chris Medina Admitting Unavailable Antwan Pitts Attending Unavailable Artemio Farrar Consulting Unavailable Job, Emmanuel Consulting Unavailable Dori CHARGE OUT CLERK, Verónica Attending Unavailable Petrilla, Jacob Primary Care Unavailable Petrilla, Jacob Referring Unavailable Dori CHARGE OUT CLERK, Verónica Attending Unavailable Petrilla, Jacob Primary Care Unavailable Petrilla, Jacob Referring Unavailable LesliekarusJackieour Attending Unavailable Petrilla, Jacob Primary Care Unavailable Petrilla, Jacob Referring Unavailable Petrilla, Jacob Primary Care Unavailable Friend, Michael Attending Unavailable Petrilla, Jacob Referring Unavailable Petrilla, Jacob Primary Care Unavailable LesliekarJackie smithour Attending Unavailable Petrilla, Jacob Referring Unavailable Job, Emmanuel Attending Unavailable Artemio Farrar Consulting Unavailable Job, Emmanuel Consulting Unavailable Artemio Farrar Attending Unavailable Antwan Pitts Consulting Unavailable Antwan Pitts Attending Unavailable Friend, Michael Attending Unavailable Sayra Fuentes Referring Unavailable Evelio Hong Attending Unavailable Eveilo Hong Consulting Unavailable Benito Malcolm Attending Unavailable Chris Medina Referring Unavailable Megha Erazo Consulting Unavailable Rene Cutler Consulting Unavailable Thaddeus Patel Consulting Unavailable Benito Malcolm Consulting Unavailable Antwan Radford Consulting Unavailable Sebastian Howe Consulting Unavailable Obi Hernandez Consulting Unavailable Laura Ribera Consulting UnavailChapincito Marcus Consulting Unavailable Santino Martel Consulting Unavailable Jamal Montes De Oca Consulting Unavailable Ana Maria Flores Consulting Unavailable Korey Santamaria Consulting Unavailable Ciara Almaraz Consulting Unavailable NathalyJennie mactam Consulting Unavailable Parker Marshall Consulting Unavailable Indra Garces Consulting Unavailable Kasi Tarango Consulting Unavailable Yasmin Villasenor Consulting Unavailable Pacheco Bhatia Consulting Unavailable Tyrell Mayo Consulting Unavailable Dimas Gallegos Consulting Unavailable Lalo Leo Consulting Unavailable Michael Chambers Attending Unavailable Antwan Pitts Referring Unavailable Antwan Pitts Attending Unavailable Lalo Galaviz Attending Unavailable Evelio Hong Attending Unavailable Evelio Hong Consulting Unavailable Sayra Fuentes Attending Unavailable Artemio Farrar Attending Unavailable Petrilla, Jacob Primary Care Unavailable Petrilla, Jacob Referring Unavailable Dori CHARGE OUT CLERK, Verónica Attending Unavailable Petrilla, Jacob Primary Care Unavailable Petrilla, Jacob Referring Unavailable Petrilla, Jacob Primary Care Unavailable Thien Sandoval Attending Unavailable Angela Rodriguez Attending Unavailable Petrilla, Jacob Primary Care Unavailable Petrilla, Jacob Referring Unavailable Michael Chambers Attending Unavailable Petrilla, Jacob Primary Care Unavailable Petrilla, Jacob Referring Unavailable Petrilla, Jacob Primary Care Unavailable Eduin Narvaez Attending Unavailable Petrilla, Jacob Primary Care Unavailable Chris Medina Attending Unavailable Katlin Dwyer Attending Unavailable Angela Rodriguez Attending Unavailable Petrilla, Jacob Primary Care Unavailable Petrilla, Jacob Referring Unavailable Petrilla, Jacob Primary Care Unavailable Lj Piña Attending Unavailable Petrilla, Jacob Referring Unavailable Sayra Fuentes Consulting Unavailable Mahesh Menon Referring Unavailable Amber Cat Attending Unavailable Petrilla, Jacob Primary Care Unavailable Sayra Fuentes Admitting Unavailable Petrilla, Jacob Primary Care Unavailable Petrilla, Jacob Referring Unavailable Thien Sandoval Attending Unavailable Dori CHARGE OUT CLERKVerónica Attending Unavailable Petrilla, Jacob Primary Care Unavailable Petrilla, Jacob Referring Unavailable Angela Rodriguez Attending Unavailable Petrilla, Jacob Primary Care Unavailable Petrilla, Jacob Referring Unavailable Petrilla, Jacob Primary Care Unavailable Petrilla, Jacob Referring Unavailable Uzair CHARGE OUT CLERK, Monalisa Attending Unavailable Anamikalla DO, Jacob F Primary Care Provider Mamie BAUTISTA, Eleuterio Paulino Primary Care Provider PETRILLA, JACOB Primary Care Unavailable TONO BIRCH Attending Unavailable PETRILLA, JACOB Primary Care Unavailable PETRILLA, JACOB Attending Unavailable PETRILLA, JACOB Primary Care Unavailable PETRILLA, JACOB Attending Unavailable PETRILLA, JACOB Primary Care Unavailable PETRILLA, JACOB Attending Unavailable PETRILLA, JACOB Attending Unavailable PETRILLA, JACOB Primary Care Unavailable PETRILLA, JACOB Primary Care Unavailable PETRILLA, JACOB Attending Unavailable PETRILLA, JACOB Primary Care Unavailable ELEUTERIO HATCH Attending Unavailable PETRILLA, JACOB Primary Care Unavailable PETRILLA, JACOB Primary Care Unavailable PETRILLA, JACOB Attending Unavailable Allergies Allergy Classification Reported Allergen(s) Allergy Type Date of Onset Reaction(s) Facility (2 sources) Wheat gluten extract Drug Allergy 08-24-2025 [facility] (1 source) Gluten Drug allergy (disorder) 09-06-2025 [facility] Repository (4 sources) Gluten Allergy to substance 08-24-2025 [facility] Medications Current Medications Medication Drug Class(es) Dates Sig (Normalized) Sig (Original) acetaminophen 325 mg / oxyCODONE hydrochloride 5 mg oral tablet (1 source) Opioid Agonist Start: 03-15-2021 End: 03-22-2021 oxyCODONE-acetaminop hen (PERCOCET) 5-325 MG per tablet Indications: Adenosquamous carcinoma of lung, left (HCC) Take 1 tablet by mouth every 6 hours as needed for Pain for up to 7 days. Intended supply: 7 days. Take lowest dose possible to manage pain 28 tablet 0 03/15/2021 03/22/2021 Active albuterol 0.833 mg/ml / ipratropium bromide 0.167 mg/ml inhalation solution (20 sources) Anticholinergic, beta2-Adrenergic Agonist Start: 02-21-2025 End: 02-21-2026 ipratropium-albutero l (Duo-Neb) 0.5-2.5 mg/3 mL nebulizer solution Take 3 mL by nebulization three times daily. 180 mL 11 02/21/2025 Active Start: 11-24-2022 End: 06-09-2025 Start: 11-24-2022 End: 06-09-2025 take 1 mL by inhalation every four hours as needed for wheezing Ipratropium-Albuterol 0.5 mg-3 mg(2.5 mg base)/3 mL solution for nebulization Discontinued 3 mL INHALATION Q4H as needed for shortness of breath or wheezing 180 3 September 07, 2023 12:26pm June 09, 2025 10:43am Start: 11-24-2022 End: 09-07-2023 take 1 mL by inhalation every four hours Ipratropium-Albuterol Active 3 ML INHALATION Q4H 180 September 07, 2023 12:26pm Start: 11-24-2022 amLODIPine 10 mg oral tablet (20 sources) Dihydropyridine Calcium Channel Gage Start: 05-31-2021 End: 04-18-2025 take 1 tablet by mouth once daily amLODIPine (Norvasc) 10 MG tablet Take 1 tablet (10 mg) by mouth daily. 90 tablet 1 04/18/2025 Active Comment on above: Take 10 mg by mouth. Take 10 mg by mouth once daily. amoxicillin 875 mg / clavulanate 125 mg oral tablet (20 sources) Penicillin-class Antibacterial Start: 08-22-2025 Start: 12-02-2024 End: 12-12-2024 Start: 12-02-2024 End: 12-12-2024 Amoxicillin-Pot Clavulanate 875-125 mg tablet Discontinued 1 {tbl} PO Q12H 20 10 0 December 02, 2024 1:00am December 11, 2024 1:00am December 12, 2024 1:10am Acute sinusitis, unspecified Start: 06-15-2021 End: 06-26-2021 Start: 06-15-2021 End: 06-26-2021 Amoxicillin-Pot Clavulanate (Augmentin) 875-125 mg tablet Discontinued 1 {tbl} PO TWICE A DAY 6 0 June 15, 2021 12:00am June 26, 2021 8:55am Start: 06-15-2021 End: 06-26-2021 apixaban 2.5 mg oral tablet (20 sources) Factor Xa Inhibitor Start: 03-03-2025 End: 10-15-2025 take 1 tablet by mouth twice daily apixaban (Eliquis) 2.5 MG tablet Take 1 tablet (2.5 mg) by mouth 2 times daily for 360 doses. 180 tablet 1 04/18/2025 10/15/2025 Active Start: 12-06-2024 End: 03-03-2025 apixaban (Eliquis) 2.5 MG ta blet One q day 90 tablet 12/06/2024 03/03/2025 Discontinued Start: 05-06-2023 End: 08-19-2025 Start: 05-06-2023 End: 07-20-2023 take 2 tablets by mouth twice daily, then take 1 tablet by mouth twice daily Apixaban (Eliquis) 5 mg tablet Discontinued 2.5 mg PO TWICE A DAY 60 0 May 19, 2023 9:55am July 20, 2023 11:38am Start 05/08/2023 with 2 tabs twice daily for 5 days, then 1 tab twice daily Start: 05-06-2023 End: 12-06-2024 take 0.5 tablet by mouth twice daily ELIQUIS 5 mg tab(s) Take 0.5 tablets by mouth twice daily. 05/06/2023 Active Comment on above: Take 0.5 tablets by mouth twice daily. aspirin 81 mg delayed release oral tablet (20 sources) Platelet Aggregation Inhibitor, Nonsteroidal Anti-inflammatory Drug Start: 05-15-2021 aspirin EC tablet 81 mg Start: 06-13-2019 End: 03-15-2021 take 1 tablet by mouth once daily aspirin 325 MG tablet Take 1 tablet by mouth daily 180 tablet 1 06/13/2019 03/15/2021 Discontinued (Stop Taking at Discharge) Start: 08-18-2018 End: 05-21-2023 Comment on above: Take 81 mg by mouth. budesonide 3 mg delayed release oral capsule (20 sources) Corticosteroid Start: take 1 capsule by mouth once daily, then take 3 mg by mouth every twenty-four hours budesonide EC (Entocort EC) 3 MG 24 hr capsule Take 6 mg by mouth daily. 08/20/2025 Active Start: 03-31-2025 End: 08-04-2025 Start: 03-31-2025 End: 08-04-2025 take 3 capsules by mouth once daily Budesonide 3 mg capsule,delayed,extend.release Discontinued 9 mg PO daily 90 1 June 29, 2025 7:40am August 04, 2025 11:44am carvedilol 25 mg oral tablet (20 sources) alpha-Adrenergic Gage, beta-Adrenergic Gage Start: 05-15-2021 carvedilol (CORE G) tablet 25 mg Start: 01-11-2021 End: 06-26-2025 take 1 tablet by mouth twice daily at mealtime carvedilol (Coreg) 25 MG tablet TAKE 1 TABLET BY MOUTH TWICE A DAY WITH MEALS 180 tablet 1 06/26/2025 Active Start: 07-02-2020 take 1 tablet by juan c th twice daily carvedilol (COREG) 6.25 MG tablet Take 1 tablet by mouth 2 times daily 180 tablet 1 07/02/2020 Active Comment on above: Take 25 mg by mouth. Take 25 mg by mouth twice daily with meals. cephalexin 500 mg oral capsule (2 sources) Cephalosporin Antibacterial Start: End: take 1 capsule by mouth three times daily cephalexin (Keflex) 500 MG capsule Take 1 capsule (500 mg) by mouth 3 times daily for 10 days. 30 capsule 09/19/2024 09/29/2024 Active chlorthalidone 25 mg oral tablet (2 sources) Thiazide-like Diuretic Start: End: take 1 tablet by mouth once daily chlorthalidone (Hygroton) 25 MG tablet Indications: Essential hypertension Take 1 tablet (25 mg) by mouth daily. 30 tablet 09/15/2025 10/15/2025 Active doxycycline hyclate 100 mg oral capsule (18 sources) Tetracycline-class Drug Start: Start: 03-24-2025 End: 04-12-2025 0.4 ml enoxaparin sodium 100 mg/ml prefilled syringe (2 sources) Low Molecular Weight Heparin Start: 05-15-2021 enoxaparin (LOVENOX) injection 40 mg Start: 03-12-2021 enoxaparin (LO VENOX) injection 40 mg Pvvujgfmjpu-Pvduzrrtz-Jcpqqu er (10 sources) Anticholinergic, Corticosteroid, beta2-Adrenergic Agonist Start: 06-09-2025 Cobrlwfdcuh-Mpmulkebr-Lwdzhw er (Trelegy Ellipta) 100-62.5-25 mcg blister with device Active 1 NMA INHALATION daily 60 June 09, 2025 12:00am Chronic obstructive pulmonary disease, unspecified administer at approximately the same time(s) each day Complies with drug therapy Start: 06-09-2025 Start: 06-09-2025 Start: 06-09-2025 Fluticasone-Um eclidin-Vilanter (Trelegy Ellipta) 100-62.5-25 mcg blister with device Active 1 NMA INHALATION daily 60 June 09, 2025 12:00am Chronic obstructive pulmonary disease, unspecified administer at approximately the same time(s) each day hydrALAZINE hydrochloride 50 mg oral tablet (20 sources) Arteriolar Vasodilator Start: 06-26-2025 take 1 tablet by mouth twice daily hydrALAZINE (Apresoline) 50 MG tablet TAKE 1 TABLET BY MOUTH TWICE A DAY 180 tablet 1 06/26/2025 Active Start: 05-20-2021 End: 04-18-2025 Start: 05-20-2021 End: 05-31-2021 take 1 tablet by mouth three times daily Hydralazine 50 mg tablet Discontinued 50 mg PO THREE TIMES A DAY May 20, 2021 12:00am May 31, 2021 10:12am Start: 05-17-2021 hydrALAZINE (A PRESOLINE) tablet 50 mg Start: 05-17-2021 hydrALAZINE (A PRESOLINE) injection 10 mg Start: 05-17-2021 End: 05-17-2021 hydrALAZINE (APRESOLINE) tab let 25 mg Start: 05-17-2021 End: 05-17-2021 take 1 tablet by mouth every eight hours hydrALAZINE (APRESOLINE) 50 MG tablet Take 1 tablet by mouth every 8 hours 90 tablet 0 05/17/2021 Active Comment on above: Take 1 tablet by juan c twice daily. HYDROmorphone (DILAUDID) injection 0.25 mg (1 source) Start: 03-14-20 21 HYDROmorphone (DILAUDID) injection 0.25 mg isopropyl alcohol 0.7 ml/ml medicated pad (20 sources) Start: 05-07-20 23 ALCOHOL PREP PADS as directed. 05/07/2023 Active Comment on above: as directed. 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) MRI Brain Inject, intravenously, once for 1 [...] MR contrast administration guidelines link 1 Each 11/18/2024 11/19/2024 Active Start: 05-20-2024 End: 05-23-2025 inject 1 dose intravenously once iv contrast (will be provided with radiology test) Indications: Metastatic cancer to brain (HCC) , Secondary malignant neoplasm of brain (HCC) MRI Brain Inject, intravenously, once for 1 [...] MR contrast administration guidelines link 1 Each 05/20/2024 05/23/2025 Discontinued (Course of therapy completed) Start: 05-20-2024 inject 1 dose intravenously on ce iv contrast (will be provided with radiology test) Indications: Metastatic cancer to brain (HCC) , Secondary malignant neoplasm of brain (HCC) MRI Brain Inject, intravenously, once for 1 [...] MR contrast administration guidelines link 1 Each 05/20/2024 Active Start: 05-20-2024 inject 1 dose intravenously on ce iv contrast (will be provided with radiology test) Indications: Metastatic cancer to brain (HCC) , Secondary malignant neoplasm of brain (HCC) MRI Brain Inject, intravenously, once for 1 [...] contrast administration guidelines link 1 Each 0 05/20/2024 Active Start: 02-19-2024 End: 05-20-2024 inject 1 dose intravenously once iv contrast (will be provided with radiology test) Indications: Metastatic cancer to brain (HCC) MRI Brain Inject, intravenously, once for 1 [...] contrast administration guidelines link 1 Each 0 02/19/2024 05/20/2024 Discontinued (Course of therapy completed) Start: 02-19-2024 inject 1 dose intravenously on ce iv contrast (will be provided with radiology test) Indications: Metastatic cancer to brain (HCC) MRI Brain Inject, intravenously, once for 1 [...] contrast administration guidelines link 1 Each 0 02/19/2024 Active Start: 11-17-2023 End: 02-19-2024 inject 1 dose intravenously once iv contrast (will be provided with radiology test) Indications: Metastatic cancer to brain (HCC) MRI Brain Inject, intravenously, once for 1 [...] contrast administration guidelines link 1 Each 0 11/17/2023 02/19/2024 Discontinued (Course of therapy completed) Start: 11-17-2023 inject 1 dose intravenously on ce iv contrast (will be provided with radiology test) Indications: Metastatic cancer to brain (HCC) MRI Brain Inject, intravenously, once for 1 [...] contrast administration guidelines link 1 Each 0 11/17/2023 Active Start: 10-20-2023 inject 1 dose intravenously on ce iv contrast (will be provided with radiology test) Indications: Metastatic cancer to brain (HCC) MRI Brain Inject, intravenously, once for 1 [...] contrast administration guidelines link 1 Each 0 10/20/2023 Active Start: 08-07-2023 End: 08-08-2023 inject 1 dose intravenously once iv contrast (will be provided with radiology test) Indications: Metastatic cancer to brain (HCC) MRI Brain Inject, intravenously, once for 1 [...] contrast administration guidelines link 1 Each 0 08/07/2023 08/08/2023 Active Start: 06-09-2023 End: 10-20-2023 inject 1 dose intravenously once iv contrast (will be provided with radiology test) Indications: 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 MRI Brain Inject, intravenously, once for 1 [...] contrast administration guidelines link 1 Each 0 06/09/2023 10/20/2023 Discontinued (Course of therapy completed) Start: 06-09-2023 inject 1 dose intravenously on ce iv contrast (will be provided with radiology test) Indications: 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 MRI Brain Inject, intravenously, once for 1 [...] contrast administration guidelines link 1 Each 0 06/09/2023 Active Start: 05-29-2023 End: 06-09-2023 inject 1 dose intravenously once iv contrast (will be provided with radiology test) Indications: 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 MRI Brain Inject, intravenously, once for 1 [...] contrast administration guidelines link 1 Each 0 05/29/2023 06/09/2023 Discontinued (Course of therapy completed) Start: 05-29-2023 inject 1 dose intravenously on ce iv contrast (will be provided with radiology test) Indications: 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 MRI Brain Inject, intravenously, once for 1 [...] contrast administration guidelines link 1 Each 0 05/29/2023 Active Comment on above: MRI Brain Inject, in travenously, once for 1 dose.No IV access, insert saline lock prior to beginning of sedation, infusion, injection of imaging exam.Discontinue saline lock post exam. If Pt. has a central line or IVAD, may access for administration according to line specific nursing protocol.Once exam is complete flush line and de-access according to line specific nursing protocol in the MR contrast administration guidelines link levoFLOXacin 500 mg oral tablet (20 sources) Quinolone Antimicrobial Start: 12-06-19 End: 12-16-19 take 1 tablet by mouth once daily levoFLOXacin (Levaquin) 500 MG tablet Take 1 tablet (500 mg) by mouth daily for 10 days. 10 tablet 12/06/2024 12/16/2024 Active Start: 09-02-2023 End: 10-05-2023 Start: 05-06-2023 End: 05-19-2023 Start: 11-17-2022 End: 11-24-2022 lidocaine 0.04 mg/mg medicated patch (1 source) Antiarrhythmic, Amide Local Anesthetic Start: 03-16-2021 lidocaine 4 % external patch 2 patch Start: 03-16-2021 lidocaine 4 % external patch 2 patch nitroglycerin 0.4 mg sublingual tablet (20 sources) Nitrate Vasodilator Start: 11-26-2015 End: 11-13-2034 nitroglycerin (Nitrostat) 0.[address] 1 tablet (0.4 mg) under the tongue every 5 minutes as needed for chest pain. 90 tablet 10/20/2024 11/13/2034 Active Comment on above: Dissolve 0.4 mg unde r the tongue. omeprazole 20 mg delayed release oral capsule (20 sources) Proton Pump Inhibitor Start: 06-26-2025 End: 12-23-2025 take 1 capsule by mouth every twenty-four hours as needed omeprazole (PriLOSEC) [address] capsule TAKE 1 CAPSULE (20 MG) BY MOUTH DAILY NEEDED (REFLUX). 90 capsule 1 06/26/2025 12/23/2025 Active Start: 07-07-2023 End: 04-18-2025 Start: 10-22-2022 omeprazole (Pr iLOSEC) [address] capsule Take 20 mg by mouth. 0 10/22/2022 Active Comment on above: PLEASE SEE ATTACHED FOR DETAILED DIRECTIONS ONETOUCH ULTRA2 METER (20 sources) Start: 05-07-2023 ONETOUCH ULTRA2 METER USE TO TEST 2 TIMES DAILY 05/07/2023 Active Start: 05-07-2023 ONETOUCH ULTRA 2 METER USE TO TEST 2 TIMES DAILY 0 05/07/2023 Active Comment on above: USE TO TEST 2 TIMES DAILY 4 ml pembrolizumab 25 mg/ml injection (20 sources) Programmed Receptor-1 Blocking Antibody Start: 12-14-2024 Start: 03-01-2024 Pembrolizumab Active 200 MG .ROUTE .COMPLEX March 01, 2024 12:00am 200 mg ONCE Q 3 WEEK; 200 mg once every 3 weeks Start: 03-01-2024 Pembrolizumab Active MG .Route March 01, 2024 12:00am 200 mg once every 3 weeks Start: 10-22-2022 Start: 10-22-2022 End: 09-07-2025 pembrolizumab (Keytruda) 100 MG/4ML chemo injection Infuse 200 mg into a venous catheter. 10/22/2022 09/07/2025 Discontinued Pembrolizumab (K EYTRUDA IV) Infuse into a venous catheter every 21 (twenty-one) days. Active Comment on above: Inject intravenously . Inject intravenously every 3 weeks. Last tx 05.27.2023 perflutren lipid microspheres (DEFINITY) injection 1.65 mg (1 source) Start: 05-15-2021 End: 05-18-2021 perflutren lipid microspheres (DEFINITY) injection 1.65 mg rosuvastatin calcium 40 mg oral tablet (20 sources) HMG-CoA Reductase Inhibitor Start: 05-15-2021 rosuvastatin (CRESTOR) tablet 40 mg Start: 08-18-2018 End: 04-18-2025 take 1 tablet by mouth once daily rosuvastatin (Crestor) 40 MG tablet Take 1 tablet (40 mg) by mouth daily. 90 tablet 1 04/18/2025 Active Comment on above: Take 40 mg by mouth. Take 40 mg by mouth once daily. sulfamethoxazole 800 mg / trimethoprim 160 mg oral tablet (2 sources) Dihydrofolate Reductase Inhibitor Antibacterial, Sulfonamide Antimicrobial Start: 08-22-2025 triamcinolone acetonide 1 mg /ml topical cream (20 sources) Corticosteroid Start: 06-09-2025 Start: 06-09-2025 Start: 05-05-2025 triamcinolone (Kenalog) 0.1 % cream Please see attached for detailed directions 05/05/2025 Active Start: 07-01-2022 End: 01-07-2024 triamcinolone (Kenalog) 0.1 % cream Start: 12-17-2021 End: 01-23-2023 Completed/Discontinued Medications Medication Drug Class(es) Dates Sig (Normalized) Sig (Original) acetaminophen 500 mg oral tablet (20 sources) Start: 03-09-2024 End: 03-21-2025 Start: 05-16-2021 acetaminophen (TYLENOL) tablet 650 mg Start: 03-13-2021 acetaminophen (TYLENOL) tablet 1,000 mg Start: 03-12-2021 End: 03-13-2021 acetaminophen (OFIRMEV) infu jose alberto 1,000 mg Start: 03-12-2021 End: 03-12-2021 acetaminophen (TYLENOL) tabl et 1,000 mg [id number] 200 actuat albuterol 0.09 mg/actuat metered dose inhaler (20 sources) beta2-Adrenergic Agonist Start: 11-17-2022 End: 12-31-2022 take 2 puff(s) by inhalation every four hours as needed for wheezing albuterol (ProAir HFA) 108 (90 Base) MCG/ACT inhaler Indications: Chronic obstructive pulmonary disease with acute exacerbation (HCC) Inhale 2 puffs every 4 hours as needed for wheezing or shortness of breath. 8.5 g 0 11/17/2022 12/31/2022 Discontinued (Therapy completed) Start: 05-31-2021 End: 04-12-2025 Start: 05-31-2021 End: 04-12-2025 Albuterol Sulfate 90 mcg/act uation HFA aerosol inhaler Discontinued 1 NMA INHALATION EVERY 6 HOURS as needed for SOB May 31, 2021 12:00am April 12, 2025 1:30pm Start: 05-31-2021 take 1 puff(s) by in halation every six hours Albuterol Sulfate Active 1 PUFF INHALATION EVERY 6 HOURS May 31, 2021 12:00am Start: 05-31-2021 Start: 05-24-2021 take 2 puff(s) by in halation every six hours as needed for wheezing albuterol sulfate HFA 108 (90 Base) MCG/ACT inhaler Inhale 2 puffs into the lungs every 6 hours as needed for Wheezing 1 Inhaler 3 05/24/2021 Active Start: 03-12-2021 albuterol (PRO VENTIL) nebulizer solution 2.5 mg End: 06-09-2023 take 2 puff(s) by inhalation every four hours as needed for wheezing albuterol HFA (PROAIR HFA) 90 mcg/actuation inhaler Inhale 2 Puffs as instructed every 4 hours as needed for wheezing/shortness of breath. 0 06/09/2023 Discontinued (Discontinued by Patient) Comment on above: Inhale 2 Puffs as in structed every 4 hours as needed for wheezing/shortness of breath. ALPRAZolam 0.25 mg disintegrating oral tablet (1 source) Benzodiazepine Start: 2020 End: 2020 ALPRAZolam (NIRAVAM) dissolvable tablet 0.25 mg ampicillin-sulbactam (Unasyn) 3,000 mg in sodium chloride 0.9 % 100 mL IVPB (Mini-Bag Plus) (2 sources) Start: 2024 End: 2024 3,000 mg, IntraVENous, at 200 mL/hr, Administer over 30 Minutes, Once, On 08/19/25 at 1555, For 1 dose, Mini-Bag Plus bag, Suspected Indication (Select all that apply): Skin and Soft Tissue Infection atenolol 50 mg oral tablet (20 sources) beta-Adrenergic Gage Start: 2017 End: 2020 azithromycin 500 mg oral tablet (16 sources) Macrolide Antimicrobial Start: 2024 End: 2024 bacitracin 0.5 unt/mg topical ointment (2 sources) Start: 2024 End: 2024 apply 1 dose topically once Topical, Once, On 08/19/25 at 1555, For 1 dose bifidobacterium infantis 4 mg oral capsule (20 sources) Start: 2021 End: 2022 Start: 12-09-2021 take 1 tablet by juan c th once daily Bifidobacterium infantis (ALIGN) 10.5 mg (10 million cell) chew Take 1 tablet by mouth once daily. 30 tablet 3 12/09/2021 Active Comment on above: Take 1 tablet by juan c th once daily. calcium carbonate 1250 mg chewable tablet (20 sources) Start: 04-01-20 End: 01-24-20 calcium chloride 0.001 meq/m l / glucose 50 mg/ml / potassium chloride 0.004 meq/ml / sodium chloride 0.103 meq/ml / sodium lactate 0.028 meq/ml injectable solution (1 source) Start: 03-12-20 End: 03-14-20 dextrose 5 % in lactated ringers infusion calcium chloride 0.0014 meq/ ml / potassium chloride 0.004 meq/ml / sodium chloride 0.103 meq/ml / sodium lactate 0.028 meq/ml injectable solution (1 source) Start: 03-12-20 End: 03-15-20 lactated ringers infusion carboxymethylcellulose sodiu m 5 mg/ml / glycerin 10 mg/ml / polysorbate 80 5 mg/ml ophthalmic solution (20 sources) Non-Standardized Chemical Allergen Start: 03-13-20 End: 04-18-20 Refresh Optive Advanced PF 0.5-1-0.5 % solution Administer 1 drop into both eyes 2 times daily. 03/13/2023 04/18/2025 Discontinued (Therapy completed) cefdinir 300 mg oral capsule (20 sources) Cephalosporin Antibacterial Start: 11-21-19 End: 12-16-19 celecoxib 400 mg oral capsul e (1 source) Nonsteroidal Anti-inflammatory Drug Start: 03-12-20 End: 03-12-20 celecoxib (CELEBREX) capsule 400 mg cilostazol 50 mg oral tablet (20 sources) Phosphodiesterase 3 Inhibitor Start: 06-13-20 End: 06-26-20 Start: 05-20-2021 End: 05-31-2021 Start: 01-11-2021 take 50 mg by mouth twice christian y 50 mg, Oral, 2 TIMES DAILY, First dose on Tena 05/16/21 at 2100 Start: 07-02-2020 take 1 tablet by juan c th twice daily cilostazol (PLETAL) 50 MG tablet Take 1 tablet by mouth 2 times daily 180 tablet 1 07/02/2020 Active dexamethasone 1 mg oral tabl et (20 sources) Corticosteroid Start: 11-18-2023 End: 05-23-2025 Start: 11-18-2023 End: 12-14-2024 Start: 11-18-2023 take 0.5 mg by mouth once daily Dexamethasone Active 0.5 MG PO DAILY November 18, 2023 1:00am Start: 07-03-2023 End: 12-06-2024 take 1 tablet by mouth three times daily dexAMETHasone (Decadron) 1 MG tablet Take 1 mg by mouth 3 times daily. 07/03/2023 12/06/2024 Discontinued (Therapy completed) Start: 06-09-2023 End: 06-29-2023 take 1 tablet by mouth once daily at breakfast, then take 0.5 tablet by mouth once daily at breakfast, then take 0.5 tablet by mouth every other day dexAMETHasone (DECADRON) 1 mg tablet Indications: 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 Take 1 tablet by mouth daily with breakfast for 7 days, THEN 0.5 tablets daily with breakfast for 7 days, THEN 0.5 tablets every other day for 6 days. 12 tablet 0 06/09/2023 06/29/2023 Active Start: 05-02-2023 End: 11-18-2023 Start: 05-02-2023 End: 11-18-2023 Start: 03-20-2023 End: 06-09-2023 take 0.5 tablet by mouth once daily dexAMETHasone (DECADRON) 4 mg tablet Take 0.5 tablets by mouth once daily. 0 03/20/2023 06/09/2023 Discontinued (Course of therapy completed) Start: 01-06-2023 End: 03-10-2023 Start: 01-06-2023 End: 03-10-2023 take 1 tablet by mouth once daily Dexamethasone 4 mg tablet Discontinued 4 mg PO DAILY 15 January 06, 2023 1:00am March 10, 2023 10:28am Malignant neoplasm metastatic to brain Secondary malignant neoplasm of brain Weaning instructions given to patient Start: 10-23-2022 take 1 tablet by juan c twice daily dexAMETHasone (Decadron) 4 MG tablet Take 4 mg by mouth 2 times daily. 0 10/23/2022 Active Start: 10-14-2022 End: 11-19-2022 Start: 10-14-2022 End: 01-21-2023 take 1 tablet by mouth three times daily Dexamethasone 4 mg tablet Discontinued 4 mg PO THREE TIMES A DAY 30 October 14, 2022 1:00am November 19, 2022 10:08pm Malignant neoplasm metastatic to brain Secondary malignant neoplasm of brain Comment on above: Take 0.5 tablets by mouth once daily. Take 1 tablet by juan c daily with breakfast for 7 days, THEN 0.5 tablets daily with breakfast for 7 days, THEN 0.5 tablets every other day for 6 days. Take 1 tablet by juan c three times daily. 12 hr dextromethorphan hydrobromide 30 mg / guaiFENesin 600 mg extended release oral tablet (20 sources) Uncompetitive Q-enilns-Q-aspartate Receptor Antagonist, Sigma-1 Agonist Start: 11-21-2022 End: 12-16-2022 Start: 11-21-2022 End: 12-16-2022 Dextromethorphan-Guaifenesin (Mucinex Dm) 30-600 mg Tablet Extended Release 12 Hr Discontinued 2 {tbl} PO TWICE A DAY 14 7 November 21, 2022 1:00am December 16, 2022 10:45am Start: 11-21-2022 End: 12-16-2022 docusate sodium 50 mg / [facility] 8.6 mg oral tablet (19 sources) Start: 03-09-2024 End: 12-14-2024 Start: 03-09-2024 End: 12-14-2024 Sennosides-Docusate Sodium ( Stool Softener-Stimulant Laxat) 8.6-50 mg Tablet Discontinued 2 {tbl} PO TWICE A DAY as needed for constipation 28 7 0 March 09, 2024 11:35am December 14, 2024 10:01pm Start: 03-12-2021 sennosides-doc usate sodium (SENOKOT-S) 8.6-50 MG tablet 1 tablet enalapril maleate 20 mg oral tablet (20 sources) Angiotensin Converting Enzyme Inhibitor Start: 08-18-2018 End: 08-29-2021 Start: 08-18-2018 End: 04-30-2021 Start: 08-18-2018 End: 04-30-2021 take 1 tablet by mouth once daily Enalapril Maleate 20 MG tablet Discontinued 20 mg PO DAILY August 18, 2018 12:00am April 30, 2021 8:53am BP esomeprazole 20 mg delayed release oral capsule (20 sources) Proton Pump Inhibitor Start: 04-30-2021 End: 05-19-2023 famotidine 20 mg oral tablet (1 source) Histamine-2 Receptor Antagonist Start: 03-12-2021 End: 03-12-2021 famotidine (PEPCID) tablet 20 mg ferrous sulfate 325 mg oral tablet (20 sources) Start: 05-06-2023 End: 08-21-2023 Start: 04-01-2022 End: 08-12-2022 gabapentin 300 mg oral capsu le (20 sources) Anti-epileptic Agent Start: 05-20-2021 End: 05-31-2021 Start: 04-09-2021 take 1 capsule by mo [facility] twice daily gabapentin (NEURONTIN) 300 MG capsule Take 1 capsule by mouth 2 times daily for 14 days. 28 capsule 0 04/09/2021 Active Start: 03-12-2021 End: 03-12-2021 gabapentin (NEURONTIN) capsu le 300 mg gadobutrol (GADAVIST) inject ion 8 mL (1 source) Start: 05-16-2021 End: 05-16-2021 gadobutrol (GADAVIST) inject ion 8 mL 12 hr guaiFENesin 1200 mg extended release oral tablet (14 sources) Start: 09-11-2023 End: 12-04-2023 Start: 09-11-2023 End: 12-04-2023 take 1200 mg by mouth every twelve hours Guaifenesin Discontinued 1200 MG PO Q12H 60 September 11, 2023 12:00am December 04, 2023 11:17am HYDROmorphone (DILAUDID) 30 mg in sodium chloride 0.9 % 30 mL PREPRINT ANALYST (1 source) Start: 03-12-2021 End: 03-14-2021 HYDROmorphone (DILAUDID) 30 mg in sodium chloride 0.9 % 30 mL PREPRINT ANALYST ipratropium bromide 0.2 mg/ml inhalation solution (9 sources) Anticholinergic Start: 11-24-2022 End: 06-09-2023 ipratropium (ATROVENT) 0.02 % nebulizer solution Inhale 0.2 mg as instructed as needed. 0 11/24/2022 06/09/2023 Discontinued (Course of therapy completed) Start: 11-24-2022 take 0.5 mg by inhal ation every four hours Ipratropium [place] Active 0.5 MG INHALATION Q4H 150 November 24, 2022 1:00am Comment on above: Inhale 0.2 mg as ins tructed as needed. ketorolac tromethamine 5 mg/ml ophthalmic solution (13 sources) Nonsteroidal Anti-inflammatory Drug, Cyclooxygenase Inhibitor Start: 07-28-20 End: 02-19-20 take 1 drop(s) into the eye(s) four times daily keTORolac (ACULAR) 0.5 % ophthalmic solution INSTILL 1 DROP IN SURGICAL EYE 4 TIMES DAILY STARTING DAY OF SURGERY IMMEDIATELY FOLLOWING SURGERY 0 07/28/2023 02/19/2024 Discontinued Comment on above: INSTILL 1 DROP IN LIND RGICAL EYE 4 TIMES DAILY STARTING DAY OF SURGERY IMMEDIATELY FOLLOWING SURGERY labetalol hydrochloride 5 mg/ml injectable solution (3 sources) beta-Adrenergic Gage Start: 05-15-20 End: 05-17-20 21 labetalol (NORMODYNE;TRANDATE) injection 10 mg Start: 05-15-2021 End: 05-15-2021 labetalol (NORMODYNE;TRANDAT E) injection 20 mg levETIRAcetam 1000 mg oral t ablet (20 sources) Start: 05-20-2021 End: 12-17-2021 Start: 05-20-2021 End: 12-17-2021 Levetiracetam (Keppra) 1,000 mg tablet Discontinued 500 mg PO TWICE A DAY November 19, 2021 11:59am December 17, 2021 10:50am seizures Start: 05-17-2021 End: 05-17-2021 take 1 tablet by mouth twice daily levETIRAcetam (KEPPRA) 1000 MG tablet Take 1 tablet by mouth 2 times daily 60 tablet 0 05/17/2021 Active Start: 05-16-2021 levETIRAcetam (KEPPRA) tablet 1,000 mg levETIRAcetam (KEPPRA) 1,000 mg in sodium chloride 0.9 % 100 mL IVPB (2 sources) Start: 05-16-2021 End: 05-16-2021 levETIRAcetam (KEPPRA) 1,000 mg in sodium chloride 0.9 % 100 mL IVPB Start: 05-15-2021 End: 05-15-2021 levETIRAcetam (KEPPRA) 1,000 mg in sodium chloride 0.9 % 100 mL IVPB lidocaine 25 mg/ml / prilocaine 25 mg/ml topical cream (20 sources) Antiarrhythmic, Amide Local Anesthetic Start: 04-30-2021 End: 01-12-2025 Start: 04-30-2021 End: 01-12-2025 Lidocaine-Prilocaine 2.5-2.5 % cream Discontinued 1 NMA TOPICAL ONCE as needed for Port access September 07, 2024 11:50am January 12, 2025 3:03am 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 1 ml LORazepam 2 mg/ml injection (1 source) Benzodiazepine Start: 03-12-2021 End: 03-12-2021 LORazepam (ATIVAN) injection 0.5 mg meloxicam 15 mg oral tablet (18 sources) Nonsteroidal Anti-inflammatory Drug Start: 03-09-2024 End: 05-04-2024 metFORMIN hydrochloride 500 mg oral tablet (20 sources) Biguanide Start: 05-06-2023 End: 08-21-2023 Start: 05-06-2023 End: 06-09-2023 take 1 tablet by mouth every twelve hours metFORMIN (GLUCOPHAGE) 500 mg tablet Take 1 tablet by mouth every 12 hours 6am/6pm. 0 05/06/2023 06/09/2023 Discontinued (Discontinued by Patient) Comment on above: Take 1 tablet by juan c th every 12 hours 6am/6pm. methocarbamol 500 mg oral ta blet (18 sources) Muscle Relaxant Start: 03-09-2024 End: 05-04-2024 Start: 03-09-2024 End: 05-04-2024 metoclopramide 10 mg oral tablet (16 sources) Dopamine-2 Receptor Antagonist Start: 03-24-2025 End: 08-04-2025 miSOPROStol 0.2 mg oral tablet (20 sources) Prostaglandin E1 Analog Start: 05-06-2023 End: 08-21-2023 Comment on above: Take 200 mcg by mout h three times daily with meals. 1 ml morphine sulfate 4 mg/ml cartridge (2 sources) Opioid Agonist Start: 08-19-2025 End: 08-19-2025 take 1 dose by mouth every hour 2 mg, IntraVENous, Once, On 08/19/25 at 1555, For 1 dose, If oral and injectable narcotics ordered, use oral first and only use injectable if oral is ineffective or cannot take oral. Do Not give oral and injectable within 1 hour of each other unless specifically ordered. nystatin [id number] unt/ml oral suspension (5 sources) Polyene Antifungal Start: 01-20-2025 End: 03-21-2025 take 5 mL by mouth four times daily nystatin (Mycostatin) [id number] UNIT/ML suspension Take 5 mL (500,000 Units) by mouth 4 times daily. Swish in mouth and spit out. 280 mL 01/20/2025 02/21/2025 Discontinued (Therapy completed) ofloxacin 3 mg/ml ophthalmic solution (11 sources) Quinolone Antimicrobial Start: 07-28-2023 take 1 drop(s) into the eye(s) four times daily ofloxacin (OCUFLOX) 0.3 % ophthalmic solution INSTILL 1 DROP IN SURGICAL EYE 4 TIMES DAILY STARTING 2 DAYS PRIOR TO SURGERY 0 07/28/2023 Active Comment on above: INSTILL 1 DROP IN LIND RGICAL EYE 4 TIMES DAILY STARTING 2 DAYS PRIOR TO SURGERY 2 ml ondansetron 2 mg/ml injection (20 sources) Serotonin-3 Receptor Antagonist Start: 08-19-2025 End: 08-19-2025 4 mg, IntraVENous, Once, On 08/19/25 at 1555, For 1 dose Start: 01-07-2025 End: 03-21-2025 Start: 12-30-2024 End: 01-06-2025 take 1 tablet by mouth every eight hours as needed for nausea and vomiting ondansetron (Zofran) 8 MG tablet Take 1 tablet (8 mg) by mouth every 8 hours as needed for nausea or vomiting for up to 7 days. 28 tablet 12/30/2024 01/06/2025 Active Start: 05-16-2021 4 mg, Intraven ous, EVERY 6 HOURS PRN, Nausea, Vomiting, Starting on Tena 05/16/21 at 2003 Start: 03-12-2021 ondansetron (Z OFRAN) injection 4 mg oxyCODONE hydrochloride 5 mg oral tablet (19 sources) Opioid Agonist Start: 03-09-2024 End: 05-04-2024 Start: 03-14-2021 oxyCODONE (DELISA ICODONE) immediate release tablet 5 mg pantoprazole 40 mg delayed r elease oral tablet (20 sources) Proton Pump Inhibitor Start: 03-24-2025 End: 08-04-2025 Start: 05-06-2023 End: 06-09-2024 Start: 05-06-2023 End: 06-09-2024 take 1 tablet by mouth twice daily as needed for gastroesophageal reflux disease Pantoprazole (Protonix) 40 mg tablet,delayed release (DR/EC) Discontinued 40 mg PO TWICE A DAY as needed for GERD December 04, 2023 11:17am June 09, 2024 10:54am Start: 05-06-2023 End: 06-09-2023 take 1 tablet by mouth every twelve hours pantopraz[address] (PROTONIX) 40 mg tablet Take 1 tablet by mouth every 12 hours 6am/6pm. 0 05/06/2023 06/09/2023 Discontinued (Course of therapy completed) Comment on above: [facility]/6pm. Pembrolizumab 50 mg recon soln (6 sources) Start: 03-01-2024 End: 12-14-2024 Pembrolizumab 50 mg recon soln Discontinued 200 mg .ROUTE .COMPLEX March 01, 2024 12:00am December 14, 2024 10:01pm 200 mg ONCE Q 3 WEEK; 200 mg once every 3 weeks polyethylene glycol 3350 73500 mg powder for oral solution (20 sources) Osmotic Laxative Start: 11-17-2024 End: 12-14-2024 Start: 11-17-2024 End: 12-14-2024 take 1 capsule by mouth once Polyethylene Glycol 3350 17 gram/dose powder Discontinued 238 g PO ONCE 238 0 November 17, 2024 1:00am December 14, 2024 10:01pm to be mixed into 64oz of clear liquid for Capsule Endoscopy prep Start: 05-16-2021 17 g, Oral, DA LESTER PRN, Constipation, Starting on Tena 05/16/21 at 2002 First line therapy for constipation Start: 03-12-2021 End: 04-14-2021 polyethylene glycol (GLYCOLA X) 17 GM/SCOOP powder Take 17 g by mouth daily as needed (constipation) 510 g 0 03/15/2021 04/14/2021 Active potassium chloride 20 meq ex tended release oral tablet (20 sources) Start: 05-19-2023 End: 08-21-2023 Start: 05-19-2023 End: 08-21-2023 Start: 05-16-2021 End: 05-16-2021 potassium chloride (KLOR-CON M) extended release tablet 20 mEq prednisoLONE acetate 10 mg/ml ophthalmic suspension (20 sources) Corticosteroid Start: 09-15-2024 End: 02-21-2025 take 1 drop(s) into the eye(s) twice daily prednisoLONE acetate (Pred-Forte) 1 % ophthalmic suspension Administer 1 drop into the left eye 2 times daily. 09/15/2024 02/21/2025 Discontinued (Med list cleanup) Start: 10-20-2023 End: 01-07-2024 prednisoLONE acetate (Pred-F orte) 1 % ophthalmic suspension Please see attached for detailed directions 0 10/20/2023 01/07/2024 Discontinued (Therapy completed) Start: 07-28-2023 prednisoLONE a cetate (PRED FORTE) 1 % ophthalmic suspension INSTILL 1 DROP IN SURGICAL EYE 4 TIMES DAILY STARTING DAY OF SURGERY IMMEDIATELY FOLLOWING SURGERY 0 07/28/2023 Active Comment on above: INSTILL 1 DROP IN LIND RGICAL EYE 4 TIMES DAILY STARTING DAY OF SURGERY IMMEDIATELY FOLLOWING SURGERY predniSONE 20 mg oral tablet (20 sources) Start: 03-24-2025 End: 05-02-2025 Start: 03-24-2025 End: 04-12-2025 take 2 tablets by mouth once daily Prednisone 20 mg tablet Discontinued 40 mg PO DAILY 60 30 0 March 24, 2025 12:00am April 12, 2025 1:32pm Start: 02-01-2025 End: 09-07-2025 predniSONE (Deltasone) 10 MG tablet 10 mg every other day. Takes 5 mg on opposite days 02/01/2025 09/07/2025 Discontinued (Med list cleanup) Start: 02-01-2025 End: 03-15-2025 take 2 tablets by mouth once daily Prednisone 10 mg tablet Discontinued 20 mg PO daily 100 0 February 01, 2025 12:00am February 16, 2025 1:06pm Follow weaned off instructions given. Start: 02-01-2025 End: 03-15-2025 take 1 tablet by mouth once daily Prednisone 10 mg tablet Discontinued 10 mg PO daily February 16, 2025 1:06pm March 15, 2025 10:35am Follow weaned off instructions given. Start: 01-18-2025 End: 02-01-2025 Start: 01-18-2025 End: 02-01-2025 take 2 tablets by mouth at breakfast Prednisone 20 mg Tablet Discontinued 40 mg PO WITH BREAKFAST 60 30 0 January 18, 2025 12:00am February 01, 2025 12:32pm Start: 12-16-2024 End: 01-07-2025 Start: 12-16-2024 End: 01-07-2025 take 2 tablets by mouth once daily Prednisone 20 mg tablet Discontinued 40 mg PO DAILY 10 0 December 16, 2024 1:00am January 07, 2025 3:21am Start: 09-02-2023 End: 09-07-2023 Start: 09-02-2023 End: 09-07-2023 take 2 tablets by mouth once daily Prednisone 20 mg tablet Discontinued 40 mg PO DAILY 10 5 August 25th, 2023 12:00am September 06, 2023 12:00am September 07, 2023 12:04am Start: 09-02-2023 End: 09-07-2023 Start: 05-06-2023 End: 08-05-2023 Start: 05-06-2023 End: 08-05-2023 take 4 tablets by mouth once daily, then take 3 tablets by mouth once daily, then take 2 tablets by mouth once daily, then take 1 tablet by mouth once daily Prednisone 10 mg tablet Discontinued 10 mg PO DAILY May 06, 2023 12:00am August 05, 2023 11:39am 4 tabs daily for 3 days, then 3 tabs daily for 3 days, then 2 tabs daily for 3 days, then 1 tab daily for 3 days Start: 11-19-2022 End: 12-16-2022 Start: 11-19-2022 End: 11-24-2022 take 1 tablet by mouth once daily Prednisone 20 mg tablet Discontinued 20 mg PO DAILY November 19, 2022 1:00am November 24, 2022 10:03am steroid On Hold: Hold it while patient is taking burst therapy of prednisone. Start: 11-19-2022 End: 12-16-2022 Start: 11-17-2022 End: 12-16-2022 take 2 tablets by mouth once daily Prednisone 20 mg tablet Discontinued 40 mg PO DAILY November 21, 2022 1:00am December 16, 2022 10:45am sodium bicarbonate 650 mg or al tablet (17 sources) Start: 12-16-2024 End: 01-07-2025 50 ml sodium chloride 9 mg/m l injection (13 sources) Start: 08-19-2025 End: 08-19-2025 1,000 mL, IntraVENous, at 1, 000 mL/hr, Administer over 1 Hours, Once, On 08/19/25 at 1645, For 1 dose Start: 05-16-2021 take 1 dose intraven ously twice daily 5-40 mL, Intravenous, EVERY 12 HOURS SCHEDULED (2 times per day), First dose on Tena 05/16/21 at 2100 For Line Patency: Peripheral IV = 5 [...] Midline or Central Line = 20 mL/lumen Start: 05-16-2021 take 25 mL intraveno usly every hour as needed 25 mL, Intravenous, at 100 mL/hr, PRN, If patient receiving piggyback infusions without ordered maintenance IV fluids or with frequent/long duration piggyback infusions, Starting on [facility] 05/16/21 at 2002 Administer at the same rate as the piggyback being infused. Start: 05-15-2021 End: 05-16-2021 0.9 % sodium chloride infusi on Start: 05-15-2021 End: 05-18-2021 sodium chloride flush 0.9 % injection 5-40 mL Start: 05-15-2021 End: 05-15-2021 0.9 % sodium chloride bolus Start: 03-12-2021 sodium chlorid e flush 0.9 % injection 5-40 mL Start: 03-12-2021 0.9 % sodium c hloride infusion Start: 02-20-2021 0.9 % sodium c hloride infusion sucralfate 1000 mg oral tabl et (20 sources) Aluminum Complex Start: 05-06-2023 End: 08-21-2023 tiZANidine 4 mg oral tablet (20 sources) Central alpha-2 Adrenergic Agonist Start: 11-19-2021 End: 01-23-2023 (20 sources) Start: 03-01-2024 End: 12-14-2024 Start: 09-11-2023 End: 12-04-2023 Problems Active Problems Problem Classification Problem Date Documented Da te Episodic/Chronic Acute and unspecified renal failure (20 sources) Injury of kidney; 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: [Acute kidney failure, unspecified] Episodic Allergic reactions (20 sources) Eruption due to drug; 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: [Generalized skin eruption due to drugs and medicaments taken internally] Episodic Comment on above: Immune therapy, emerald geable side effect Blindness and vision defects (1 source) Visual impairment; 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: [Unspecified visual loss] Chronic Cancer of bronchus; lung (20 sources) Carcinoma of lung; 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: [Malignant neoplasm of unspecified part of left bronchus or lung] Onset: 02-07-2021 Chronic Comment on above: Cancer of kidney and renal pelvis (20 sources) Primary malignant neoplasm of kidney; 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: [Malignant neoplasm of unspecified kidney, except renal pelvis] Onset: 08-23-2022 Chronic Chronic obstructive pulmonary disease and bronchiectasis (20 sources) Chronic obstructive lung disease; 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: [Chronic obstructive pulmonary disease, unspecified] Onset: 05-15-2021 05-27-2015 Chronic Comment on above: PRN INHALER Congestive heart failure; nonhypertensive (20 sources) Congestive heart failure; 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: [Heart failure, unspecified] Onset: 01-07-2024 10-22-2022 Chronic Coronary atherosclerosis and other heart disease (20 sources) Coronary arteriosclerosis; 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: [Atherosclerotic heart disease of [place] coronary artery without angina pectoris] Onset: 07-10-2003 05-27-2015 Chronic Coronary atherosclerosis and other heart disease (20 sources) Past history of procedure; 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: [Coronary angioplasty status] Onset: 07-17-2003 Episodic Comment on above: [id number] FACE PAINTER-OM1 01/05/2004 Deficiency and other anemia (20 sources) Iron deficiency anemia due to blood loss; 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: [Iron deficiency anemia secondary to blood loss (chronic)] 10-17-2022 Chronic Deficiency and other anemia (20 sources) Iron deficiency anemia secondary to blood loss (chronic); 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: [Iron deficiency anemia secondary to blood loss (chronic)] Onset: 08-16-2025 Chronic Deficiency and other anemia (20 sources) Anemia; 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: [Anemia, unspecified] 10-17-2022 Episodic Deficiency and other anemia (19 sources) Anemia, unspecified; 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: [Anemia, unspecified] Onset: 09-06-2025 Episodic Deficiency and other anemia (2 sources) Microcytic hypochromic anemia; 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: [Iron deficiency anemia, unspecified] 10-20-2024 Episodic Diabetes mellitus without complication (20 sources) Hyperglycemia; 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: [Hyperglycemia, unspecified] 05-02-2023 Episodic Disorders of lipid metabolism (20 sources) Hypercholesterolemia ; 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: [Pure hypercholesterolemia , unspecified] Onset: 05-15-2021 05-27-2015 Chronic E Codes: Natural/environment (4 sources) Cat bite - wound; 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: [Bitten by cat, initial encounter] Onset: 08-19-2025 08-19-2025 Episodic Esophageal disorders (2 sources) Gastric reflux; 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: [Gastroesophageal reflux disease] 10-17-2022 Chronic Essential hypertension (20 sources) Essential hypertension; 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: [Essential (primary) hypertension] Onset: 11-09-1993 03-29-2018 Chronic Fever of unknown origin (20 sources) Fever; 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: [Fever, unspecified] Episodic Gastritis and duodenitis (2 sources) Chronic gastritis; 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: [Unspecified chronic gastritis without bleeding] 01-07-2024 Chronic Gastroduodenal ulcer (except hemorrhage) (20 sources) Ulcer of duodenum; 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: [Duodenal ulcer, unspecified as acute or chronic, without hemorrhage or perforation] 05-05-2023 Chronic Headache; including migraine (20 sources) Frequent headache; 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: [Frequent headaches] Episodic Comment on above: on steroids headache Heart valve disorders (20 sources) Aortic valve stenosis with insufficiency; 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: [Nonrheumatic aortic (valve) stenosis with insufficiency] Onset: 06-30-2022 Chronic Hypertension with complications and secondary hypertension (20 sources) Hypertensive urgency ; 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: [Hypertensive urgency] Onset: 05-15-2021 05-30-2021 Chronic Immunity disorders (4 sources) Patient immunocompromised; 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: [Immunodeficiency, unspecified] Onset: 08-19-2025 08-19-2025 Chronic Immunizations and screening for infectious disease (20 sources) Contact with and (suspected) exposure to other viral communicable diseases; 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: [Contact with or suspected exposure to other viral communicable disease] 07-31-2022 Episodic Maintenance chemotherapy; radiotherapy (1 source) Radiotherapy procedure with explicit context; 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: [Encounter for antineoplastic radiation therapy] Chronic Malaise and fatigue (20 sources) Fatigue; 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: [Other fatigue] Onset: 01-24-2025 Episodic Malignant neoplasm without specification of site (1 source) Malignant adenomatous neoplasm 10-17-2022 Chronic Comment on above: right lung Nonspecific chest pain (20 sources) Chest pain; 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: [Chest pain, unspecified] 04-16-2021 Episodic Open wounds of extremities (1 source) Tear of skin; 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: [Laceration without foreign body of right upper arm, initial encounter] 11-24-2023 Episodic Other aftercare (4 sources) Patient encounter status; 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: [Encounter for adjustment and management of unspecified implanted device] Onset: 05-10-2024 05-10-2024 Chronic Other aftercare (8 sources) Device in situ; 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: [Encounter for adjustment and management of unspecified implanted device] Onset: 05-10-2024 05-10-2024 Chronic Other aftercare (20 sources) Patient encounter status; 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: [custodial (current) use of non-steroidal anti-inflammatories (NSAID)] Onset: 12-04-2017 Resolved: 01-07-2024 12-04-2017 Episodic Other and ill-defined cerebrovascular disease (20 sources) Posterior reversible encephalopathy syndrome; 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: [Posterior reversible encephalopathy syndrome] Onset: 06-30-2022 Chronic Other circulatory disease (20 sources) Low blood pressure; 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: [Hypotension, unspecified] 06-19-2021 Episodic Other circulatory disease (1 source) Other specified symptoms and signs involving the circulatory and respiratory systems; 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: [Other specified symptoms and signs involving the circulatory and respiratory systems] Onset: 08-04-2025 Episodic Other connective tissue disease (18 sources) History of cervical spine fusion; 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: [Arthrodesis status] 03-09-2024 Episodic Other diseases of kidney and ureters (1 source) Kidney disease 10-22-2022 Episodic Other endocrine disorders (20 sources) Disorder of adrenal gland; 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: [Disorder of adrenal gland, unspecified] Onset: 06-30-2022 08-23-2022 Chronic Other gastrointestinal disorders (11 sources) Celiac disease; 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: [Celiac disease] Onset: 04-18-2025 04-18-2025 Chronic Other gastrointestinal disorders (1 source) Celiac disease; 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: [Celiac disease] Onset: 04-18-2025 Chronic Other gastrointestinal disorders (20 sources) Diarrhea; 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: [Diarrhea, unspecified] 05-19-2023 Episodic Other gastrointestinal disorders (20 sources) Dysphagia; 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: [Dysphagia, unspecified] 03-21-2025 Episodic Other inflammatory condition of skin (20 sources) Itching ; 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: [Pruritus, unspecified] 07-02-2021 Episodic Other inflammatory condition of skin (1 source) Pruritus, unspecified; 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: [Unspecified pruritic disorder] Episodic Other injuries and conditions due to external causes (20 sources) Closed injury of head; 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: [Unspecified injury of head, initial encounter] 01-10-2025 Episodic Other lower respiratory disease (20 sources) Dyspnea; 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: [Dyspnea, unspecified] 10-17-2022 Episodic Other lower respiratory disease (20 sources) Hypoxia; 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: [Hypoxemia] 06-19-2021 Episodic Other lower respiratory disease (12 sources) Shortness of breath; 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: [Shortness of breath] 11-24-2022 Episodic Other lower respiratory disease (20 sources) Hypoxemia; 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: [Hypoxemia] 05-02-2023 Episodic Other lower respiratory disease (20 sources) Pneumonitis; 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: [Other disorders of lung] 05-14-2023 Episodic Other lower respiratory disease (1 source) Mass of right lower lobe of lung; 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: [Mass of right lung] Onset: 01-07-2021 01-29-2021 Other nervous system disorders (1 source) Aphasia; 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: [Aphasia] Chronic Other nervous system disorders (20 sources) Cervical myelopathy; 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: [Disease of spinal cord, unspecified] 01-15-2024 Chronic Other nervous system disorders (8 sources) Disease of spinal cord, unspecified; 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: [Cervical spondylosis with myelopathy] 01-15-2024 Chronic Other nervous system disorders (20 sources) Impairment of balance; 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: [Other abnormalities of gait and mobility] 12-16-2022 Episodic Other nervous system disorders (20 sources) Numbness of lower limb ; 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: [Anesthesia of skin] 12-30-2023 Episodic Other nervous system disorders (20 sources) Numbness of upper limb; 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: [Anesthesia of skin] 12-30-2023 Episodic Other nervous system disorders (8 sources) Anesthesia of skin; 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: [Disturbance of skin sensation] 12-30-2023 Episodic Other screening for suspected conditions (not mental disorders or infectious disease) (14 sources) Other specified abnormal findings of blood chemistry; 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: [Elevated troponin level] Onset: 05-15-2021 05-30-2021 Episodic Other skin disorders (1 source) Actinic keratosis; 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: [Actinic keratosis] 04-19-2024 Episodic Other skin disorders (1 source) Epidermoid cyst; 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: [Epidermal cyst] 09-19-2024 Episodic Other upper respiratory disease (20 sources) Bleeding from nose; 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: [Epistaxis] 10-17-2022 Episodic Comment on above: cauterized Other upper respiratory disease (4 sources) Epistaxis; 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: [Epistaxis] Episodic Other upper respiratory disease (20 sources) Congestion of nasal sinus; 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: [Nasal congestion] 11-13-2022 Episodic Other upper respiratory disease (6 sources) Nasal congestion; 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: [Other disease of nasal cavity and sinuses] Episodic Peripheral and visceral atherosclerosis (20 sources) Peripheral vascular disease; 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: [Peripheral vascular disease, unspecified] Onset: 07-10-2019 08-14-2019 Chronic Residual codes; unclassified (20 sources) History of lung lobectomy; 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: [Acquired absence of lung [part of]] 11-29-2022 Episodic Comment on above: 03/12/21/right lower l obe/cancer Residual codes; unclassified (20 sources) Encounter for other specified prophylactic measures; 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: [Need for prophylactic immunotherapy] Onset: 06-15-2025 Episodic Residual codes; unclassified (2 sources) Acquired absence of lung [part of]; 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: [Personal history of other diseases of circulatory system] Episodic Residual codes; unclassified (1 source) Absent kidney; 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: [Acquired absence of kidney] Episodic Residual codes; unclassified (20 sources) Clouded consciousness; 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: [Disorientation, unspecified] 10-18-2023 Episodic Secondary malignancies (20 sources) Secondary malignant neoplasm of adrenal gland; 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: [Secondary malignant neoplasm of unspecified adrenal gland] Chronic Secondary malignancies (20 sources) Regional lymph node metastasis present ; 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: [Secondary and unspecified malignant neoplasm of lymph node, unspecified] 04-16-2021 Chronic Secondary malignancies (20 sources) Secondary malignant neoplasm of lung; 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: [Secondary malignant neoplasm of unspecified lung] Onset: 12-03-2021 04-22-2022 Chronic Comment on above: RIGHT LOWER LOBECTOM Y Secondary malignancies (20 sources) Secondary malignant neoplasm of unspecified adrenal gland; 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: [Secondary malignant neoplasm of adrenal gland] Chronic Secondary malignancies (20 sources) Secondary and unspecified malignant neoplasm of lymph node, unspecified; 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: [Secondary and unspecified malignant neoplasm of lymph nodes, site unspecified] Onset: 09-06-2025 Chronic Secondary malignancies (18 sources) Secondary malignant neoplasm of unspecified lung; 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: [Secondary malignant neoplasm of lung] Onset: 08-16-2025 Chronic Secondary malignancies (20 sources) Secondary malignant neoplasm of brain; 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: [Secondary malignant neoplasm of brain] Onset: 08-07-2023 Chronic Comment on above: XRT 10/28/22 SBRT at [facility] [place] 2022 Secondary malignancies (20 sources) Secondary malignant neoplasm of brain; 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: [Secondary malignant neoplasm of brain and spinal cord] Onset: 08-07-2023 Chronic Secondary malignancies (1 source) Metastatic renal cell carcinoma 10-17-2022 Chronic Comment on above: metastic renal cell carcinoma to lung Secondary malignancies (4 sources) Secondary malignant neoplasm of right lung; 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: [Secondary malignant neoplasm of right lung] Onset: 08-23-2022 Chronic Secondary malignancies (2 sources) Secondary malignant neoplasm of right adrenal gland; 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: [Secondary malignant neoplasm of right adrenal gland] Onset: 08-16-2025 Chronic Septicemia (except in labor) (4 sources) Sepsis; 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: [Sepsis, unspecified organism] Onset: 08-19-2025 08-19-2025 Episodic Skin and subcutaneous tissue infections (17 sources) Infection of skin; 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: [Local infection of the skin and subcutaneous tissue, unspecified] Onset: 09-19-2024 09-19-2024 Episodic Spinal cord injury (20 sources) Cervical spinal cord injury; 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: [Unspecified injury at unspecified level of cervical spinal cord, initial encounter] 01-11-2024 Chronic Spondylosis; intervertebral disc disorders; other back problems (20 sources) Degeneration of cervical intervertebral disc; 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: [Other cervical disc degeneration, unspecified cervical region] Onset: 05-27-2015 05-27-2015 Chronic Spondylosis; intervertebral disc disorders; other back problems (20 sources) Spinal stenosis in cervical region; 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: [Spinal stenosis, cervical region] 01-11-2024 Episodic Unclassified (6 sources) Patient encounter status; 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: [NSAID long-term use] Onset: 12-04-2017 12-04-2017 Unclassified (1 source) Vascular port and catheter (physical object) 10-17-2022 Unclassified (1 source) Cough, unspecified; 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: [Cough, unspecified] Onset: 12-02-2024 Past or Other Problems Problem Classification Problem Date Documented Da te Episodic/Chronic Abdominal hernia (20 sources) Right inguinal hernia ; 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: [Unilateral inguinal hernia, without obstruction or gangrene, not specified as recurrent] Onset: 6 12-02-2015 Episodic Cancer of kidney and renal pelvis (20 sources) History of malignant neoplasm of kidney; 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: [Personal history of other malignant neoplasm of kidney] Onset: 6 05-27-2015 Episodic Comment on above: Status post left nep hrectomy in 2005 Cancer; other and unspecified primary (20 sources) 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; 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: [Personal history of malignant neoplasm of other organs and systems] Onset: 3 06-06-2023 Episodic Cancer; other and unspecified primary (2 sources) Personal history of malignant neoplasm of other organs and systems; 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: [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] Onset: 3 Episodic Deficiency and other anemia (2 sources) Iron deficiency anemia, unspecified; 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: [Iron deficiency anemia, unspecified] Onset: 5 Episodic Diabetes mellitus with complications (20 sources) Secondary diabetes mellitus; 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: [Diabetes mellitus due to underlying condition with other circulatory complications] Onset: 4 Resolved: 4 01-07-2024 Chronic Diabetes mellitus without complication (20 sources) Type 2 diabetes mellitus; 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: [Type 2 diabetes mellitus without complications] Onset: 4 Resolved: 5 05-04-2023 Chronic Comment on above: PATIENT DENIES E Codes: Adverse effects of medical drugs (5 sources) Adverse reaction to drug; 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: [Adverse effect of unspecified drugs, medicaments and biological substances, subsequent encounter] Onset: 5 12-06-2024 Episodic Epilepsy; convulsions (20 sources) Epilepsy; 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: [Epilepsy, unspecified, not intractable, without status epilepticus] Onset: 4 Resolved: 4 01-07-2024 Chronic Epilepsy; convulsions (20 sources) Seizure; 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: [Unspecified convulsions] Onset: 1 Episodic Comment on above: EEG 05/15/21 normal Fluid and electrolyte disorders (20 sources) Hypokalemia; 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: [Hypokalemia] Onset: 5 05-19-2023 Episodic Gastroduodenal ulcer (except hemorrhage) (3 sources) H/O: peptic ulcer; 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: [Personal history of peptic ulcer disease] Onset: 5 12-30-2024 Episodic Gastrointestinal hemorrhage (20 sources) Gastrointestinal hemorrhage; 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: [Gastrointestinal hemorrhage, unspecified] Onset: 5 05-04-2023 Episodic Intestinal infection (20 sources) Acute infective gastroenteritis; 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: [Infectious gastroenteritis and colitis, unspecified] Onset: 5 01-26-2025 Episodic Nausea and vomiting (20 sources) Nausea; 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: [Nausea] Onset: 5 12-30-2024 Episodic Other 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 (20 sources) 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; 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: [custodial (current) use of non-steroidal anti-inflammatories (NSAID)] Onset: 8 Resolved: 4 01-07-2024 Episodic Other and unspecified benign neoplasm (20 sources) History of polyp of colon; 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: [Personal history of colonic polyps] Onset: 5 05-27-2015 Episodic Other and unspecified benign neoplasm (20 sources) Gastric polyp; 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: [Polyp of stomach and duodenum] Onset: 2 08-23-2022 Episodic Other circulatory disease (20 sources) Carotid bruit; 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: [Other specified symptoms and signs involving the circulatory and respiratory systems] Onset: 5 12-04-2017 Episodic Other connective tissue disease (2 sources) Arthrodesis status; 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: [Arthrodesis status] Onset: 4 03-09-2024 Episodic Other gastrointestinal disorders (20 sources) Arteriovenous malformation of large intestine; 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: [Angiodysplasia of colon without hemorrhage] Onset: 5 12-30-2024 Episodic Other gastrointestinal disorders (15 sources) Diarrhea due to drug; 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: [Toxic gastroenteritis and colitis] Onset: 5 02-21-2025 Episodic Other gastrointestinal disorders (1 source) Dysphagia, unspecified; 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: [Dysphagia, unspecified] Onset: 5 Episodic Other gastrointestinal disorders (2 sources) Toxic gastroenteritis and colitis; 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: [Toxic gastroenteritis and colitis] Onset: 5 Episodic Other gastrointestinal disorders (2 sources) Angiodysplasia of colon without hemorrhage; 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: [Angiodysplasia of colon without hemorrhage] Onset: 5 Episodic Other hematologic conditions (20 sources) Raised cardiac enzyme or marker; 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: [Other specified abnormalities of plasma proteins] Onset: 1 05-30-2021 Episodic Other lower respiratory disease (20 sources) Lung mass; 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: [Other nonspecific abnormal finding of lung field] Onset: 1 Resolved: 4 02-20-2021 Episodic Other lower respiratory disease (13 sources) Hypoxemia; 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: [Hypoxemia] Onset: 5 Episodic Other nervous system disorders (20 sources) Disorder of brain; 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: [Encephalopathy, unspecified] Onset: 1 Resolved: 4 Chronic Other nervous system disorders (20 sources) Ataxia; 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: [Ataxia, unspecified] Onset: 1 Resolved: 4 Episodic Other non-epithelial cancer of skin (20 sources) History of squamous cell carcinoma of skin; 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: [Personal history of other malignant neoplasm of skin] Onset: 5 05-27-2015 Episodic Other nutritional; endocrine; and metabolic disorders (20 sources) Morbid obesity; 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: [Morbid (severe) obesity due to excess calories] Onset: 4 Resolved: 5 01-07-2024 Chronic Other skin disorders (2 sources) Lesion of skin of face; 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: [Disorder of the skin and subcutaneous tissue, unspecified] Episodic Other upper respiratory infections (20 sources) Upper respiratory infection; 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: [Acute upper respiratory infection, unspecified] Onset: 5 11-24-2023 Episodic Pneumonia (except that caused by tuberculosis or sexually transmitted disease) (20 sources) Pneumonia; 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: [Pneumonia, unspecified organism] Onset: 5 Episodic Pulmonary heart disease (20 sources) Pulmonary embolism; 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: [Other pulmonary embolism without acute cor pulmonale] Onset: 4 05-02-2023 Episodic Residual codes; unclassified (20 sources) FH: Diabetes mellitus; 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: [Family history of diabetes mellitus] Onset: 5 05-27-2015 Episodic Screening and history of mental health and substance abuse codes (20 sources) Ex-smoker; 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: [Personal history of nicotine dependence] Onset: 1 01-07-2024 Episodic Shock (20 sources) Shock; 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: [Shock, unspecified] Onset: 5 01-26-2025 Episodic Substance-related disorders (20 sources) Smoker; 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: [Nicotine dependence, unspecified, uncomplicated] Onset: 5 Resolved: 4 05-27-2015 Chronic Unclassified (1 source) Long-term current use of drug therapy; 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 Supervising provider for clinic visit: Dr. Eleuterio Hatch Chief Complaint Patient presents with Blood Pressure Check Reason for visit: Elevated BP Reading at last visit Kenn Arshad has validated current medications Patient states compliant with medications as written: Yes BP medication taken prior to this visit? Yes Are you having any symptoms? No Current Blood Pressure:147/61 Current Heart Rate:78 Did Blood Pressure need rechecked: yes Second Blood Pressure Readin/64 Second Heart Rate: 78 Assessment/Plan: There are no diagnoses linked to this encounter. elevated Future Appointments Date Time Provider Department [place] 09/14/2025 11:[address] [facility] 04/19/2026 10:20 AM Celsa Jacobs APRN - [facility] DELIVERY [facility] Cc'd provider blood pressure readings? Yes [facility] Progress Note Rx sent for chlorthalidone 25 mg by mouth once daily to the [facility] in [place]. Follow-up as scheduled on 09/29/2025 for repeat blood pressure check. [facility] Progress Note Spoke with patient gloria shaffer is agreeable to starting chlorthalidone 25 mg daily, verified patients pharmacy [facility]. Patient scheduled for b/p nurse visit in 2 weeks. Normal [facility] Progress Note Blood's pressure is still a little high I would recommend adding chlorthalidone 25 mg daily and recheck blood pressure in 1 to 2 weeks. Normal [facility] Office Visiton 09-07-2025 Follow-up visit [id number] Mirna Arshad 1955 M Date Provider Department Center 09/07/2025 [id number] [facility] Family History Problem Relation Age of Onset Coronary artery disease Mother 65 Comments: CABG Stroke Mother Comments: age 77 Lung cancer Mother Coronary artery disease Father Comments: age 50 [place] - smoker Coronary artery disease Sister Comments: CABG Diabetes Sister Comments: alive age 64 No Known Problems Sister No Known Problems Sister No Known Problems Sister No Known Problems Brother Coronary artery disease Brother Comments: age 47 [place] Family Status - Relation Status Age at Mother 77 Father 50 Sister Alive Sister Alive Sister Alive Sister Alive Brother Alive Brother 47 Level of Service:24149 [place] OFFICE/OUTPATIENT ESTABLISHED MOD MDM 30 MIN Reason for Visit and Comments: New Patient [542] - New to provider Medication Check [[id number]] - Pt states he is no diabetic Establish Care [42] - Pt has multiple cancer- had immunotherapy treatment yesterday [facility] Progress Noteon 09-07-2025 Progress Note Controlled, continue rosuvastatin 40 mg daily [facility] Progress Note Currently stable he is taking Keytruda IV every 21 days [facility] Progress Note PSA is borderline, w ill recheck his level today since has been a year and a half since it was checked [facility] Progress Note Stable, avoid gluten Normal S [facility] Progress Note Blood pressure was initially elevated, recheck was still elevated will have him follow-up in 1 week for blood pressure check continue amlodipine 10 mg daily carvedilol 25 mg twice a day, hydralazine 50 mg twice a day [facility] Progress Note Stable, being follow ed by cardiology [facility] Progress Note Stable, he has DuoNe b solution for his nebulizer and is a former smoker. [facility] Progress Note Martha thomas Nisha Raghutamikojuanwally this alex still on Keytruda he is on IV Keytruda. His IV every 21 days said patient not taking it this Thursday already yet taken off this when here said that not taken I said keep it active and it did not did just I put 09/07/2025 Kenn Arshad (: 1955) is a 69 y.o. male , Established patient, here for evaluation of the following chief complaint(s): New Patient (New to provider ), Medication Check (Pt states he is no diabetic ), and Establish Care (Pt has multiple cancer- had immunotherapy treatment yesterday ) ASSESSMENT/PLAN: 1. Chronic bronchitis, unspecified chronic bronchitis type (HCC) Assessment & Plan: Stable, he has DuoNeb solution for his nebulizer and is a former smoker. 2. Aortic stenosis, mild Assessment & Plan: Stable, being followed by cardiology 3. Essential hypertension Assessment & Plan: Blood pressure was initially elevated, recheck was still elevated will have him follow-up in 1 week for blood pressure check continue amlodipine 10 mg daily carvedilol 25 mg twice a day, hydralazine 50 mg twice a day 4. Celiac disease Assessment & Plan: Stable, avoid gluten 5. Hypercholesterolemia Assessment & Plan: Controlled, continue rosuvastatin 40 mg daily Orders: - Lipid panel 6. Elevated PSA Assessment & Plan: PSA is borderline, will recheck his level today since has been a year and a half since it was checked Orders: - PSA Total (Screening) 7. Screening for prostate cancer - PSA Total (Screening) 8. Screening for diabetes mellitus - Comprehensive metabolic panel 9. Renal cell carcinoma of right kidney (HCC) Assessment & Plan: Currently stable he is taking Keytruda IV every 21 days Follow up in about 6 months (around 03/08/2026). SUBJECTIVE/OBJECTIVE: HPI -Kenn comes in today to establish with our practice as a new patient although he is not new to [facility]. He has all host of problems which includes chronic bronchitis, he has renal cell carcinoma of the right kidney with mets to his lung. 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 He has hypertension and his blood pressure is elevated today we will recheck that prior to discharge. He has coronary artery disease and celiac disease and both these seem to be fairly well-controlled at this time. He also has hyperlipidemia which is controlled with rosuvastatin. Review of Systems Constitutional: Negative for activity change, appetite change, chills, fever and unexpected weight change. HENT: Negative for ear pain and sore throat. Respiratory: Negative for shortness of breath. Cardiovascular: Negative for chest pain and palpitations. Gastrointestinal: Negative for abdominal pain, blood in stool, constipation and diarrhea. Genitourinary: Negative for dysuria, frequency, hematuria and urgency. Musculoskeletal: Negative for arthralgias and back pain. Skin: Negative. Neurological: Negative for weakness and numbness. Psychiatric/Behavioral: Negative for dysphoric mood. The patient is not nervous/anxious. Vitals: 09/07/25 1433 09/07/25 1507 BP: (!) 145/61 (!) 146/64 Pulse: 80 77 SpO2: 92% Weight: 186 lb 6.4 oz (84.6 kg) Height: 5' 6 (1.676 m) Physical Exam Vitals and nursing note reviewed. Constitutional: General: He is not in acute distress. Appearance: Normal appearance. HENT: Right Ear: Tympanic membrane, ear canal and external ear normal. Left Ear: Tympanic membrane, ear canal and external ear normal. Mouth/Throat: Mouth: Mucous membranes are moist. Pharynx: Oropharynx is clear. Eyes: Extraocular Movements: Extraocular movements intact. Conjunctiva/sclera: Conjunctivae normal. Pupils: Pupils are equal, round, and reactive to light. Neck: Thyroid: No thyromegaly. Vascular: No carotid bruit. Cardiovascular: Rate and Rhythm: Normal rate and regular rhythm. Heart sounds: Murmur heard. Systolic murmur is present with a grade of 4/6. Pulmonary: Effort: Pulmonary effort is normal. Breath sounds: Normal breath sounds. Abdominal: General: Bowel sounds are normal. Palpations: Abdomen is soft. Tenderness: There is no abdominal tenderness. Musculoskeletal: General: Normal range of motion. Cervical back: Neck supple. Lymphadenopathy: Cervical: No cervical adenopathy. Skin: General: Skin is warm and dry. Neurological: General: No focal deficit present. Mental Status: He is alert and oriented to person, place, and time. Psychiatric: Mood and Affect: Mood normal. An electronic signature was used to authenticate this note. Eleuterio Hatch MD 09/07/2025 3:30 PM Normal [facility] Progress Note Patient verified by last name and date of . [facility] CBC W/Diff, Automatedon 10-2 Absolute Lymph 1.00 X10 3/uL Normal 0.83-4.51 [facility] Comment on above: Performed By: #### L 100.0100, L501.2300, L500.4050 ####[facility] [address] [place], [address] Absolute Neut 3.7 X10 3/uL Normal 2.0-7.7 [facility] Comment on above: Performed By: #### L 100.0100, L501.2300, L500.4050 ####[facility] [address] [place], [address] Basophils/100 WBC (Bld) 0.9 % Normal 0-1 [facility] Comment on above: Performed By: #### L 100.0100, L501.2300, L500.4050 ####[facility] [address] [place], [address] Eosinophils/100 WBC (Bld) 1.8 % Normal 0-5 [facility] Comment on above: Performed By: #### L 100.0100, L501.2300, L500.4050 ####[facility] [address] [place], [address] Erythrocyte distribution width (RBC) [Ratio] 17.2 % High 11.6-14.6 [facility] Comment on above: Performed By: #### L 100.0100, L501.2300, L500.4050 ####[facility] [address] [place], [address] Hematocrit (Bld) [Volume fraction] 33.9 % Low 40-54 [facility] Comment on above: Performed By: #### L 100.0100, L501.2300, L500.4050 ####[facility] [address] [place], [address] Hemoglobin (Bld) [Mass/Vol] 10.8 g/dL Low 13.0-16.5 [facility] Comment on above: Performed By: #### L 100.0100, L501.2300, L500.4050 ####[facility] [address] [place], [address] IG% 1.600 High 0.0-0.9 [facility] Comment on above: Result Comment: IG% - Immature Granulocytes (promyelocytes, myelocytes andmetamyelocytes) > 1% indicates that a LEFT SHIFT is Present. Performed By: #### L 100.0100, L501.2300, L500.4050 ####[facility] [address] [place], [address] Lymphocytes/100 WBC (Bld) 17.7 % Low 19-41 [facility] Comment on above: Performed By: #### L 100.0100, L501.2300, L500.4050 ####[facility] [address] [place], [address] MCH (RBC) [Entitic mass] 24.2 pg Low 27.0-32.0 [facility] Comment on above: Performed By: #### L 100.0100, L501.2300, L500.4050 ####[facility] [address] [place], [address] MCHC (RBC) [Mass/Vol] 31.9 g/dL Low 32-36 [facility] Comment on above: Performed By: #### L 100.0100, L501.2300, L500.4050 ####[facility] [address] [place], [address] MCV (RBC) [Entitic vol] 75.8 fL Low 80-94 [facility] Comment on above: Performed By: #### L 100.0100, L501.2300, L500.4050 ####[facility] [address] [place], [address] Monocytes/100 WBC (Bld) 12.9 % High 0-10 [facility] Comment on above: Performed By: #### L 100.0100, L501.2300, L500.4050 ####[facility] [address] [place], [address] Neutrophils/100 WBC (Bld) 65.1 % Normal 47-70 [facility] Comment on above: Performed By: #### L 100.0100, L501.2300, L500.4050 ####[facility] [address] [place], [address] Nucleated RBC (Bld) [#/Vol] 0 10*3/uL Normal 0-5 [facility] Comment on above: Performed By: #### L 100.0100, L501.2300, L500.4050 ####[facility] [address] [place], [address] Platelet mean volume (Bld) [Entitic vol] 9.0 fL Normal 6.2-12.0 [facility] Comment on above: Performed By: #### L 100.0100, L501.2300, L500.4050 ####[facility] [address] [place], [address] Platelets (Bld) [#/Vol] 166 10*3/uL Normal 150-450 [facility] Comment on above: Performed By: #### L 100.0100, L501.2300, L500.4050 ####[facility] [address] [place], [address] RBC (Bld) [#/Vol] 4.47 10*6/uL Low 4.6-6.2 [facility] Comment on above: Performed By: #### L 100.0100, L501.2300, L500.4050 ####[facility] [address] [place], [address] RDW SD 46.5 fl High 35.1-43.9 [facility] Comment on above: Performed By: #### L 100.0100, L501.2300, L500.4050 ####[facility] [address] [place], [address] WBC (Bld) [#/Vol] 5.6 10*3/uL Normal 4.4-11.0 [facility] Comment on above: Performed By: #### L 100.0100, L501.2300, L500.4050 ####[facility] [address] [place], [address] Comprehensive Metabolic Prof [facility] 09-06-2025 Albumin [Mass/Vol] 3.8 g/dL Normal 3.4-4.8 [facility] Comment on above: Performed By: #### L 100.0100, L501.2300, L500.4050 ####[facility] [address] [place], [address] Albumin/Globulin [Mass ratio] 1.7 {ratio} Normal 0.9-2.4 [facility] Comment on above: Performed By: #### L 100.0100, L501.2300, L500.4050 ####[facility] [address] [place], [address] ALK PHOS 57 U/L Normal 40-129 [facility] Comment on above: Performed By: #### L 100.0100, L501.2300, L500.4050 ####[facility] [address] [place], [address] ALT [Catalytic activity/Vol] 14 U/L Normal <=46 [facility] Comment on above: Performed By: #### L 100.0100, L501.2300, L500.4050 ####[facility] [address] [place], [address] AST [Catalytic activity/Vol] 15 U/L Normal <=37 [facility] Comment on above: Performed By: #### L 100.0100, L501.2300, L500.4050 ####[facility] [address] [place], [address] Bilirubin [Mass/Vol] 0.43 mg/dL Normal 0.00-1.30 [facility] Comment on above: Performed By: #### L 100.0100, L501.2300, L500.4050 ####[facility] [address] [place], [address] BUN/CRE 18.9 RATIO Normal 10-20 [facility] Comment on above: Performed By: #### L 100.0100, L501.2300, L500.4050 ####[facility] [address] [place], [address] Calcium [Mass/Vol] 8.9 mg/dL Normal 7.6-11.0 [facility] Comment on above: Performed By: #### L 100.0100, L501.2300, L500.4050 ####[facility] [address] [place], [address] Chloride [Moles/Vol] 107 mmol/L Normal 98-108 [facility] Comment on above: Performed By: #### L 100.0100, L501.2300, L500.4050 ####[facility] [address] [place], [address] CO2 [Moles/Vol] 20.4 mmol/L Low 21.0-32.0 [facility] Comment on above: Performed By: #### L 100.0100, L501.2300, L500.4050 ####[facility] [address] [place], [address] Creatinine [Mass/Vol] 1.08 mg/dL Normal 0.70-1.20 [facility] Comment on above: Performed By: #### L 100.0100, L501.2300, L500.4050 ####[facility] [address] [place], [address] ECRCL 62.11 ml/min Normal 50-250 [facility] Comment on above: Performed By: #### L 100.0100, L501.2300, L500.4050 ####[facility] [address] [place], [address] GAP 11 Normal 5-15 [facility] Comment on above: Performed By: #### L 100.0100, L501.2300, L500.4050 ####[facility] [address] [place], [address] GFR/1.73 sq M.predicted among non-blacks MDRD (S/P/Bld) [Vol rate/Area] 73 mL/min/{1.73_m2} Normal >60 [facility] Comment on above: Result Comment: mL/m in/1.73m2 CKD-EPI Creatinine Equation (2020) Performed By: #### L 100.0100, L501.2300, L500.4050 ####[facility] [address] [place], [address] Globulin (S) [Mass/Vol] 2.2 g/dL Normal 2.2-4.2 [facility] Comment on above: Performed By: #### L 100.0100, L501.2300, L500.4050 ####[facility] [address] [place], [address] Glucose [Mass/Vol] 96 mg/dL Normal 70-99 [facility] Comment on above: Performed By: #### L 100.0100, L501.2300, L500.4050 ####[facility] [address] [place], [address] Potassium [Moles/Vol] 3.8 mmol/L Normal 3.3-5.1 [facility] Comment on above: Performed By: #### L 100.0100, L501.2300, L500.4050 ####[facility] [address] [place], [address] Sodium [Moles/Vol] 138 mmol/L Normal 133-145 [facility] Comment on above: Performed By: #### L 100.0100, L501.2300, L500.4050 ####[facility] [address] [place], [address] T PROT 6.0 g/dL Normal 5.9-8.4 [facility] Comment on above: Performed By: #### L 100.0100, L501.2300, L500.4050 ####[facility] [address] [place], [address] Urea nitrogen [Mass/Vol] 20 mg/dL High 4-19 [facility] Comment on above: Performed By: #### L 100.0100, L501.2300, L500.4050 ####[facility] [address] [place], [address] Ferritinon 09-06-2025 Ferritin [Mass/Vol] 117 ng/mL Normal 37-417 [facility] Comment on above: Performed By: #### L 503.6030, L501.9520, L503.6550 ####[facility] [address] [place], [address] Iron+Iron Binding Capacityon 09-06-2025 Iron [Mass/Vol] 40 ug/dL Low 65-175 [facility] Comment on above: Performed By: #### L 503.6030, L501.9520, L503.6550 ####[facility] [address] [place], [address] IRON SATURATION 13.2 Normal 9-55 [facility] Comment on above: Performed By: #### L 503.6030, L501.9520, L503.6550 ####[facility] [address] [place], [address] TIBC 299 ug/dL Normal 250-450 [facility] Comment on above: Performed By: #### L 503.6030, L501.9520, L503.6550 ####[facility] [address] [place], [address] UIBC 259 ug/dL Normal 228-428 [facility] Comment on above: Performed By: #### L 503.6030, L501.9520, L503.6550 ####[facility] [address] [place], [address] Oncology Visit Reporton 08-10 Oncology Visit Report Normal [facility] Phosphoruson 09-06-2025 Phosphate [Mass/Vol] 3.4 mg/dL Normal 2.7-4.5 [facility] Comment on above: Performed By: #### L 100.0100, L501.2300, L500.4050 ####[facility] [address] [place], [address] Thyroid Stim Hormone (TSH)on 09-06-2025 TSH 3.210 uIU/mL Normal 0.300-4.200 [facility] Comment on above: Performed By: #### L 503.6030, L501.9520, L503.6550 ####[facility] [address] [place], [address] Samra 08-31-2025 THANHN Telephone (NEAGCLM) ----- KENN ARSHAD SR. ([id number]) 1955 M Date Time Provider Department 08/31/25 KESHA DEY NEAGCLM During your visit today, we recorded the following information about you: Kesha Dey APRN.CNP 08/31/2025 4:26 PM Signed Attempted to contact the patient and/or his spouse x 3 today without any success. Each phone number provided on file goes straight to voicemail. I have left 3 HIPAA compliant voice messages for either Kenn or his spouse Haylie to return my call to discuss the results of his recent scan which have been edited. Kesha Dey APRN-THANH Neurosurgery Nurse Practitioner [facility] 4:25 PM 08/31/2025 Allergies As of Date: 08/31/2025 (No Known Allergies) Date Reviewed: 08/29/2025 Reviewed by: Francois Acevedo MD - Fully Assessed Reason for Visit: Results [95] Prescriptions as of 08/31/2025 - iv contrast (will be provided with radiology [...] in the MR contrast administration guidelines link - omeprazole (PRILOSEC) 20 mg capsule PLEASE SEE ATTACHED FOR DETAILED DIRECTIONS - ONETOUCH DELICA PLUS LANCET 33 gauge USE TO TEST BLOOD SUGAR 2 TIMES A DAY - ONETOUCH ULTRA2 METER USE TO TEST 2 TIMES DAILY - ONETOUCH ULTRA TEST test strip USE TO TEST BLOOD SUGAR 2 TIMES A DAY - ALCOHOL PREP PADS as directed. - amLODIPine (NORVASC) 10 mg tablet Take 10 mg by mouth once daily. - ELIQUIS 5 mg tab(s) Take 0.5 tablets by mouth twice daily. - carvedilol (COREG) 25 mg tablet Take 25 mg by mouth twice daily with meals. - hydrALAZINE (APRESOLINE) 50 mg tablet Take 1 tablet by mouth twice daily. - pembrolizumab (KEYTRUDA) 25 mg/mL injection Inject intravenously every 3 weeks. Last tx 05.27.2023 - nitroglycerin sublingual (NITROSTAT) 0.4 mg SL tablet Dissolve 0.4 mg under the tongue. - rosuvastatin (CRESTOR) 40 mg tablet Take 40 mg by mouth once daily. 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 ([id number]) 1955 M Date Time Provider Department 08/30/25 KESHA DEY During your visit today, we recorded the following information about you: Kesha Dey APRN.CNP 08/30/2025 9:03 AM Signed Attempted to contact the patient or his spouse via telephone. There was no answer. I left a HIPAA compliant voice message and asked that the patient or his spouse give me a callback today so I can discuss the finalized radiology report from his recent MRI which was edited. Kesha Dey APRN-[facility] Neurosurgery Nurse Practitioner [facility] Jasen Porras 9:03 AM 08/30/2025 Allergies As of Date: 08/30/2025 (No Known Allergies) Date Reviewed: 08/29/2025 Reviewed by: Francois Acevedo MD - Fully Assessed Reason for Visit: Results [95] Cmt: MRI results. Prescriptions as of 08/30/2025 - iv contrast (will be provided with radiology [...] in the MR contrast administration guidelines link - omeprazole (PRILOSEC) 20 mg capsule PLEASE SEE ATTACHED FOR DETAILED DIRECTIONS - ONETOUCH DELICA PLUS LANCET 33 gauge USE TO TEST BLOOD SUGAR 2 TIMES A DAY - ONETOUCH ULTRA2 METER USE TO TEST 2 TIMES DAILY - ONETOUCH ULTRA TEST test strip USE TO TEST BLOOD SUGAR 2 TIMES A DAY - ALCOHOL PREP PADS as directed. - amLODIPine (NORVASC) 10 mg tablet Take 10 mg by mouth once daily. - ELIQUIS 5 mg tab(s) Take 0.5 tablets by mouth twice daily. - carvedilol (COREG) 25 mg tablet Take 25 mg by mouth twice daily with meals. - hydrALAZINE (APRESOLINE) 50 mg tablet Take 1 tablet by mouth twice daily. - pembrolizumab (KEYTRUDA) 25 mg/mL injection Inject intravenously every 3 weeks. Last tx 05.27.2023 - nitroglycerin sublingual (NITROSTAT) 0.4 mg SL tablet Dissolve 0.4 mg under the tongue. - rosuvastatin (CRESTOR) 40 mg tablet Take 40 mg by mouth once daily. 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 ([id number]) 1955 M Date Time Provider Department 08/29/25 11:30 AM FRANCOIS ACEVEDO NEAGCLM During your visit today, we recorded the following information about you: Pulse Respiration Blood pressure Weight 72/minute 16/minute 138/67 83.4 kg Height 1.651 m Francois Acevedo MD 08/29/2025 11:46 AM Signed NEUROSURGERY FOLLOW UP OFFICE NOTE Dr. Francois Acevedo MD, FACS Date of visit: August 29, 2025 Patient Name: Mr.Larry Linda Arshad Sr. Date of : 1955 Current Age: [age] year old Sex: male MRN/E# [id number] Last Office Visit: 05/23/2025 CHIEF COMPLAINT: Patient presents with: Established Patient SUBJECTIVE: The patient presents as a follow up with imaging (MRI B perfusion) for evaluation. This is a 69-year-old male with a PMHx of stage IV [...] SRS (SBRT) to the metastatic lesion at [place]. Two months following treatment MRI was completed [...] recurrent seizures and was not taking any antiepileptics. Neurologically he was intact. MRI brain from April 2023 showed a mix of necrosis as well as viable tumor. MRI with perfusion was then obtained which showed evidence of perilesional edema likely to be necrosis rather than recurrent tumor. Attempt to wean him off Decadron was not successful. He sustained a fall in October [address] was suspicious for tumor progression/edema. 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 Since then he has been seen routinely with imaging and has remained nonsurgical. He was seen on 11/18/2024 and was doing well. He continued with persistent, slight dizziness on a daily basis and numbness and tingling to the right side of his body both of which have been ongoing for over 1 year. He continued on Decadron 0.5mg daily. MRI with perfusion was showed the left temporoparietal lesion had gotten smaller without evidence of increased blood flow to suggest recurrence of tumor. There was no evidence of new lesions noted. He was given a weaning schedule to come off the Decadron over 2 weeks and advised to contact the office should he develop any neurological symptoms. Recommendation otherwise was to follow-up in 6 months with a repeat MRI with perfusion sequence for continued monitoring. He was last seen in the office on 05/23/2025 and continued to do well. He denied any new or concerning neurological complaints or concerns. He had successfully weaned off Decadron and tolerated that well. Neurologically he was stable on exam. MRI was reviewed and showed reduction in size of the treated lesion with no new areas of concern. He was advised to continue with oncology visits every 3 weeks for ongoing treatment. Recommendation was to follow-up with a repeat MRI with perfusion study in 6 months for continued monitoring and to contact the office with any changes in vision, balance or hand movements. Prior to his scheduled follow-up in November 2025, the patient and his contacted the office with reports of worsening dizziness/vertigo and gait imbalance. Given the symptoms, recommendation was to move up the MRI brain and follow-up in the office for evaluation prompting his visit today. He states his symptoms are not worse than the last time he saw us but they are not getting better. He reports continued vertigo, dizziness and balance issues. He denies any recent falls or trauma. He denies headache, visual changes, speech deficits, seizure activity, motor or sensory deficits. He denies any sinus issues or recent URI iss (more content not included)... Normal [facility] Basic Metabolic Profile (BMP )on 08-24-2025 BUN Normal -19 [facility] Comment on above: Result Comment: Canc elled via OM: Order cancelled - Patient discharged Performed By: #### L 500.2500, L100.0100 ####[facility] [address] [facility] [address] BUN/CRE Normal 10-20 [facility] Comment on above: Result Comment: Canc elled via OM: Order cancelled - Patient discharged Performed By: #### L 500.2500, L100.0100 ####[facility] [address] [facility] [address] Calcium Normal 7.6-11.0 [facility] Comment on above: Result Comment: Canc elled via OM: Order cancelled - Patient discharged Performed By: #### L 500.2500, L100.0100 ####[facility] [address] [place], [address] CL Normal 98-108 [facility] Comment on above: Result Comment: Canc elled via OM: Order cancelled - Patient discharged Performed By: #### L 500.2500, L100.0100 ####[facility] [address] [place], [address] CO2 Normal 21.0-32.0 [facility] Comment on above: Result Comment: Canc elled via OM: Order cancelled - Patient discharged Performed By: #### L 500.2500, L100.0100 ####[facility] [address] [place], [address] CREAT,SERUM Normal 0.70-1.20 [facility] Comment on above: Result Comment: Canc elled via OM: Order cancelled - Patient discharged Performed By: #### L 500.2500, L100.0100 ####[facility] [address] [place], [address] eGFR Normal >60 [facility] Comment on above: Result Comment: Canc elled via OM: Order cancelled - Patient discharged Performed By: #### L 500.2500, L100.0100 ####[facility] [address] [place], [address] GAP Normal 5-15 [facility] Comment on above: Result Comment: Canc elled via OM: Order cancelled - Patient discharged Performed By: #### L 500.2500, L100.0100 ####[facility] [address] [place], [address] GLU Normal 70-99 [facility] Comment on above: Result Comment: Canc elled via OM: Order cancelled - Patient discharged Performed By: #### L 500.2500, L100.0100 ####[facility] [address] [place], [address] Potassium Normal 3.3-5.1 [facility] Comment on above: Result Comment: Canc elled via OM: Order cancelled - Patient discharged Performed By: #### L 500.2500, L100.0100 ####[facility] [address] [place], [address] Basic Metabolic Profile (BMP) Normal 133-145 [facility] Comment on above: Result Comment: Canc elled via OM: Order cancelled - Patient discharged Performed By: #### L 500.2500, L100.0100 ####[facility] [address] [place], [address] CBC W/Diff, Automatedon 10- Absolute Neut Normal 2.0-7.7 [facility] Comment on above: Result Comment: Canc elled via OM: Order cancelled - Patient discharged Performed By: #### L 500.2500, L100.0100 ####[facility] [address] [place], [address] HCT Normal 40-54 [facility] Comment on above: Result Comment: Canc elled via OM: Order cancelled - Patient discharged Performed By: #### L 500.2500, L100.0100 ####[facility] [address] [place], [address] HGB Normal 13.0-16.5 [facility] Comment on above: Result Comment: Canc elled via OM: Order cancelled - Patient discharged Performed By: #### L 500.2500, L100.0100 ####[facility] [address] [place], [address] MCH Normal 27.0-32.0 [facility] Comment on above: Result Comment: Canc elled via OM: Order cancelled - Patient discharged Performed By: #### L 500.2500, L100.0100 ####[facility] [address] [place], [address] MCHC Normal 32-36 [facility] Comment on above: Result Comment: Canc elled via OM: Order cancelled - Patient discharged Performed By: #### L 500.2500, L100.0100 ####[facility] [address] [place], [address] MCV Normal 80-94 [facility] Comment on above: Result Comment: Canc elled via OM: Order cancelled - Patient discharged Performed By: #### L 500.2500, L100.0100 ####[facility] [address] [place], [address] NEUT% Normal 47-70 [facility] Comment on above: Result Comment: Canc elled via OM: Order cancelled - Patient discharged Performed By: #### L 500.2500, L100.0100 ####[facility] [address] [place], [address] PLT Normal 150-450 [facility] Comment on above: Result Comment: Canc elled via OM: Order cancelled - Patient discharged Performed By: #### L 500.2500, L100.0100 ####[facility] [address] [place], [address] RBC Normal 4.6-6.2 [facility] Comment on above: Result Comment: Canc elled via OM: Order cancelled - Patient discharged Performed By: #### L 500.2500, L100.0100 ####[facility] [address] [place], [address] RDW CV Normal 11.6-14.6 [facility] Comment on above: Result Comment: Canc elled via OM: Order cancelled - Patient discharged Performed By: #### L 500.2500, L100.0100 ####[facility] [address] [place], [address] RDW SD Normal 35.1-43.9 [facility] Comment on above: Result Comment: Canc elled via OM: Order cancelled - Patient discharged Performed By: #### L 500.2500, L100.0100 ####[facility] [address] [place], [address] WBC Normal 4.4-11.0 [facility] Comment on above: Result Comment: Canc elled via OM: Order cancelled - Patient discharged Performed By: #### L 500.2500, L100.0100 ####[facility] [address] [place], [address] Plastic Surgery Visit Report on 08-24-2025 Plastic Surgery Visit Report Normal [facility] Basic Metabolic Profile (BMP )on 08-23-2025 BUN Normal 4-19 [facility] Comment on above: Result Comment: Canc elled via OM: Order cancelled - Patient discharged Performed By: #### L 100.0100, L500.2500 ####[facility] [address] [place], [address] BUN/CRE Normal 10- [facility] Comment on above: Result Comment: Canc elled via OM: Order cancelled - Patient discharged Performed By: #### L 100.0100, L500.2500 ####[facility] [address] [place], [address] Calcium Normal 7.6-11.0 [facility] Comment on above: Result Comment: Canc elled via OM: Order cancelled - Patient discharged Performed By: #### L 100.0100, L500.2500 ####[facility] [address] [place], [address] CL Normal 98-108 [facility] Comment on above: Result Comment: Canc elled via OM: Order cancelled - Patient discharged Performed By: #### L 100.0100, L500.2500 ####[facility] [address] [place], [address] CO2 Normal 21.0-32.0 [facility] Comment on above: Result Comment: Canc elled via OM: Order cancelled - Patient discharged Performed By: #### L 100.0100, L500.2500 ####[facility] [address] [place], [address] CREAT,SERUM Normal 0.70-1.20 [facility] Comment on above: Result Comment: Canc elled via OM: Order cancelled - Patient discharged Performed By: #### L 100.0100, L500.2500 ####[facility] [address] [place], [address] eGFR Normal >60 [facility] Comment on above: Result Comment: Canc elled via OM: Order cancelled - Patient discharged Performed By: #### L 100.0100, L500.2500 ####[facility] [address] [place], [address] GAP Normal 5-15 [facility] Comment on above: Result Comment: Canc elled via OM: Order cancelled - Patient discharged Performed By: #### L 100.0100, L500.2500 ####[facility] [address] [place], [address] GLU Normal 70-99 [facility] Comment on above: Result Comment: Canc elled via OM: Order cancelled - Patient discharged Performed By: #### L 100.0100, L500.2500 ####[facility] [address] [place], [address] Potassium Normal 3.3-5.1 [facility] Comment on above: Result Comment: Canc elled via OM: Order cancelled - Patient discharged Performed By: #### L 100.0100, L500.2500 ####[facility] [address] [place], [address] Basic Metabolic Profile (BMP) Normal 133-145 [facility] Comment on above: Result Comment: Canc elled via OM: Order cancelled - Patient discharged Performed By: #### L 100.0100, L500.2500 ####[facility] [address] [place], [address] CBC W/Diff, Automatedon 10-1 Absolute Neut Normal 2.0-7.7 [facility] Comment on above: Result Comment: Canc elled via OM: Order cancelled - Patient discharged Performed By: #### L 100.0100, L500.2500 ####[facility] [address] [place], [address] HCT Normal 40-54 [facility] Comment on above: Result Comment: Canc elled via OM: Order cancelled - Patient discharged Performed By: #### L 100.0100, L500.2500 ####[facility] [address] [place], [address] HGB Normal 13.0-16.5 [facility] Comment on above: Result Comment: Canc elled via OM: Order cancelled - Patient discharged Performed By: #### L 100.0100, L500.2500 ####[facility] [address] [place], [address] MCH Normal 27.0-32.0 [facility] Comment on above: Result Comment: Canc elled via OM: Order cancelled - Patient discharged Performed By: #### L 100.0100, L500.2500 ####[facility] [address] [place], [address] MCHC Normal 32-36 [facility] Comment on above: Result Comment: Canc elled via OM: Order cancelled - Patient discharged Performed By: #### L 100.0100, L500.2500 ####[facility] [address] [place], [address] MCV Normal 80-94 [facility] Comment on above: Result Comment: Canc elled via OM: Order cancelled - Patient discharged Performed By: #### L 100.0100, L500.2500 ####[facility] [address] [place], [address] NEUT% Normal 47-70 [facility] Comment on above: Result Comment: Canc elled via OM: Order cancelled - Patient discharged Performed By: #### L 100.0100, L500.2500 ####[facility] [address] [place], [address] PLT Normal 150-450 [facility] Comment on above: Result Comment: Canc elled via OM: Order cancelled - Patient discharged Performed By: #### L 100.0100, L500.2500 ####[facility] [address] [place], [address] RBC Normal 4.6-6.2 [facility] Comment on above: Result Comment: Canc elled via OM: Order cancelled - Patient discharged Performed By: #### L 100.0100, L500.2500 ####[facility] [address] [place], [address] RDW CV Normal 11.6-14.6 [facility] Comment on above: Result Comment: Canc elled via OM: Order cancelled - Patient discharged Performed By: #### L 100.0100, L500.2500 ####[facility] [address] [place], [address] RDW SD Normal 35.1-43.9 [facility] Comment on above: Result Comment: Canc elled via OM: Order cancelled - Patient discharged Performed By: #### L 100.0100, L500.2500 ####[facility] [address] [place], [address] WBC Normal 4.4-11.0 [facility] Comment on above: Result Comment: Canc elled via OM: Order cancelled - Patient discharged Performed By: #### L 100.0100, L500.2500 ####[facility] [address] [place], [address] Absolute lymphocyte countOrd ered By: Antwan Pitts on 08-22-2025 Lymphocytes Auto (Unsp spec) [#/Vol] 0.72 10*3/uL Low 0.83-4.51 [facility] Anion gap in Serum or Plasma Ordered By: Antwan Pitts on 08-22-2025 Anion gap [Moles/Vol] 11 mmol/L 5-15 [facility] Automated blood erythrocyte countOrdered By: Antwan Pitts on 08-22-2025 RBC (Bld) [#/Vol] 4.36 10*6/uL Low 4.6-6.2 [facility] Comment on above: Performed By: #### L 501.5200, L100.0100, L501.2300, L500.2500 ####[facility] [address] [place], [address] Automated blood hematocrit ( percentage)Ordered By: Antwan Pitts on 08-22-2025 Hematocrit (Bld) [Volume fraction] 32.8 % Low 40-54 [facility] Comment on above: Performed By: #### L 501.5200, L100.0100, L501.2300, L500.2500 ####[facility] [address] [place], [place], [address] Automated lymphocyte count a s percentage of total leukocytesOrdered By: Antwan Pitts on 08-22-2025 Lymphocytes/100 WBC Auto (Unsp spec) 10.9 % Low 19-41 [facility] BUN/creatinine ratioOrdered By: Antwan Pitts on 08-22-2025 Urea nitrogen/Creatinine [Mass ratio] 22.1 mg/mg High 08-28 [facility] Basic Metabolic Profile (BMP )on 08-22-2025 BUN/CRE 22.1 RATIO High 08-28 [facility] Comment on above: Performed By: #### L 501.5200, L100.0100, L501.2300, L500.2500 ####[facility] [address] [place], [address] Calcium [Mass/Vol] 8.4 mg/dL Normal 7.6-11.0 [facility] Comment on above: Performed By: #### L 501.5200, L100.0100, L501.2300, L500.2500 ####[facility] [address] [place], [address] Chloride [Moles/Vol] 108 mmol/L Normal 98-108 [facility] Comment on above: Performed By: #### L 501.5200, L100.0100, L501.2300, L500.2500 ####[facility] [address] [place], [address] CO2 [Moles/Vol] 20.2 mmol/L Low 21.0-32.0 [facility] Comment on above: Performed By: #### L 501.5200, L100.0100, L501.2300, L500.2500 ####[facility] [address] [place], [address] Creatinine [Mass/Vol] 0.79 mg/dL Normal 0.70-1.20 [facility] Comment on above: Performed By: #### L 501.5200, L100.0100, L501.2300, L500.2500 ####[facility] [address] [place], [address] ECRCL 83.35 ml/min Normal 50-250 [facility] Comment on above: Performed By: #### L 501.5200, L100.0100, L501.2300, L500.2500 ####[facility] [address] [place], [address] GAP 11 Normal 5-15 [facility] Comment on above: Performed By: #### L 501.5200, L100.0100, L501.2300, L500.2500 ####[facility] [address] [place], [address] GFR/1.73 sq M.predicted among non-blacks MDRD (S/P/Bld) [Vol rate/Area] 95 mL/min/{1.73_m2} Normal >60 [facility] Comment on above: Result Comment: mL/m in/1.73m2 CKD-EPI Creatinine Equation (2020) Performed By: #### L 501.5200, L100.0100, L501.2300, L500.2500 ####[facility] [address] [place], [address] Glucose [Mass/Vol] 87 mg/dL Normal 70-99 [facility] Comment on above: Performed By: #### L 501.5200, L100.0100, L501.2300, L500.2500 ####[facility] [address] [place], [address] Potassium [Moles/Vol] 3.7 mmol/L Normal 3.3-5.1 [facility] Comment on above: Performed By: #### L 501.5200, L100.0100, L501.2300, L500.2500 ####[facility] [address] [place], [address] Sodium [Moles/Vol] 140 mmol/L Normal 133-145 [facility] Comment on above: Performed By: #### L 501.5200, L100.0100, L501.2300, L500.2500 ####[facility] [address] [place], [address] Urea nitrogen [Mass/Vol] 18 mg/dL Normal 4-19 [facility] Comment on above: Performed By: #### L 501.5200, L100.0100, L501.2300, L500.2500 ####[facility] [address] [place], [address] Basophil percentageOrdered B y: Antwan Pitts on 08-22-2025 Basophils/100 WBC (Bld) 0.3 % Normal 0-1 [facility] Comment on above: Performed By: #### L 501.5200, L100.0100, L501.2300, L500.2500 ####[facility] [address] [place], [address] CBC W/Diff, Automatedon 10-1 Absolute Lymph 0.72 X10 3/uL Low 0.83-4.51 [facility] Comment on above: Performed By: #### L 501.5200, L100.0100, L501.2300, L500.2500 ####[facility] [address] [place], [address] Absolute Neut 5.2 X10 3/uL Normal 2.0-7.7 [facility] Comment on above: Performed By: #### L 501.5200, L100.0100, L501.2300, L500.2500 ####[facility] [address] [place], [address] IG% 1.400 High 0.0-0.9 [facility] Comment on above: Result Comment: IG% - Immature Granulocytes (promyelocytes, myelocytes andmetamyelocytes) > 1% indicates that a LEFT SHIFT is Present. Performed By: #### L 501.5200, L100.0100, L501.2300, L500.2500 ####[facility] [address] [place], [address] Lymphocytes/100 WBC (Bld) 10.9 % Low 19-41 [facility] Comment on above: Performed By: #### L 501.5200, L100.0100, L501.2300, L500.2500 ####[facility] [address] [place], [address] MCHC (RBC) [Mass/Vol] 32.3 g/dL Normal 32-36 [facility] Comment on above: Performed By: #### L 501.5200, L100.0100, L501.2300, L500.2500 ####[facility] [address] [place], [address] Nucleated RBC (Bld) [#/Vol] 0 10*3/uL Normal 0-5 [facility] Comment on above: Performed By: #### L 501.5200, L100.0100, L501.2300, L500.2500 ####[facility] [address] [place], [address] Platelet mean volume (Bld) [Entitic vol] 9.4 fL Normal 6.2-12.0 [facility] Comment on above: Performed By: #### L 501.5200, L100.0100, L501.2300, L500.2500 ####[facility] [address] [place], [address] RDW SD 43.7 fl Normal 35.1-43.9 [facility] Comment on above: Performed By: #### L 501.5200, L100.0100, L501.2300, L500.2500 ####[facility] [address] [place], [address] Carbon dioxide, total [Moles /volume] in Central venous bloodOrdered By: Antwan Pitts on 08-22-2025 CO2 [Moles/Vol] 20.2 mmol/L Low 21.0-32.0 [facility] Chloride assayOrdered By: Mikal Pitts on 08-22-2025 Chloride [Moles/Vol] 108 mmol/L 98-108 [facility] Eosinophil percentageOrdered By: Antwan Pitts on 08-22-2025 Eosinophils/100 WBC (Bld) 1.8 % Normal 0-5 [facility] Comment on above: Performed By: #### L 501.5200, L100.0100, L501.2300, L500.2500 ####[facility] [address] [place], [address] Erythrocyte distribution wid th ratioOrdered By: Antwan Ptits on 08-22-2025 Erythrocyte distribution width (RBC) [Ratio] 15.9 % High 11.6-14.6 [facility] Comment on above: Performed By: #### L 501.5200, L100.0100, L501.2300, L500.2500 ####[facility] [address] [place], [address] Erythrocyte distribution wid th standard deviationOrdered By: Antwan Pitts on 08-22-2025 Erythrocyte distribution width (RBC) [Ratio] 43.7 fl 35.1-43.9 [facility] Glomerular filtration rate ( GFR) estimation/1.73 sq m using serum, plasma, or whole bOrdered By: Antwan Pitts on 08-22-2025 GFR/1.73 sq M.predicted among non-blacks MDRD (S/P/Bld) [Vol rate/Area] 95 mL/min/{1.73_m2} >60 [facility] Hemoglobin measurementOrdere d By: Antwan Pitts on 08-22-2025 Hemoglobin (Bld) [Mass/Vol] 10.6 g/dL Low 13.0-16.5 [facility] Comment on above: Performed By: #### L 501.5200, L100.0100, L501.2300, L500.2500 ####[facility] [address] [place], [address] Immature granulocytes/100 WB C Auto (Bld)Ordered By: Antwan Pitts on 08-22-2025 Immature granulocytes/100 WBC (Bld) 1.400 % High 0.0-0.9 [facility] MCV (mean corpuscular volume ) determinationOrdered By: Antwan Pitts on 08-22-2025 MCV (RBC) [Entitic vol] 75.2 fL Low 80-94 [facility] Comment on above: Performed By: #### L 501.5200, L100.0100, L501.2300, L500.2500 ####[facility] [address] [place], [address] Magnesiumon 08-22-2025 Magnesium [Mass/Vol] 2.2 mg/dL Normal 1.5-2.2 [facility] Comment on above: Performed By: #### L 501.5200, L100.0100, L501.2300, L500.2500 ####[facility] [address] [place], [address] Magnesium measurement (mass/ volume)Ordered By: Antwan Pitts on 08-22-2025 Magnesium (Unsp spec) [Mass/Vol] 2.2 mg/dL 1.5-2.2 [facility] Mean corpuscular hemoglobin (MCH) determinationOrdered By: Antwan Pitts on 08-22-2025 MCH (RBC) [Entitic mass] 24.3 pg Low 27.0-32.0 [facility] Comment on above: Performed By: #### L 501.5200, L100.0100, L501.2300, L500.2500 ####[facility] [address] [place], [address] Monocyte percentageOrdered B y: Antwan Pitts on 08-22-2025 Monocytes/100 WBC (Bld) 6.8 % Normal 0-10 [facility] Comment on above: Performed By: #### L 501.5200, L100.0100, L501.2300, L500.2500 ####[facility] [address] [place], [address] Neutrophil percentageOrdered By: Antwna Pitts on 08-22-2025 Neutrophils/100 WBC (Bld) 78.8 % High 47-70 [facility] Comment on above: Performed By: #### L 501.5200, L100.0100, L501.2300, L500.2500 ####[facility] [address] [place], [address] Phosphoruson 08-22-2025 Phosphate [Mass/Vol] 2.8 mg/dL Normal 2.7-4.5 [facility] Comment on above: Performed By: #### L 501.5200, L100.0100, L501.2300, L500.2500 ####[facility] [address] [place], [address] Platelet countOrdered By: Mikal Pitts on 08-22-2025 Platelets (Bld) [#/Vol] 175 10*3/uL Normal 150-450 [facility] Comment on above: Performed By: #### L 501.5200, L100.0100, L501.2300, L500.2500 ####[facility] [address] [place], [address] Potassium measurement (mass/ volume)Ordered By: Antwan Pitts on 08-22-2025 Potassium (Unsp spec) [Mass/Vol] 3.7 mmol/L 3.3-5.1 [facility] Serum creatinine measurement (mass/volume)Ordered By: Antwan Pitts on 08-22-2025 Creatinine [Mass/Vol] 0.79 mg/dL 0.70-1.20 [facility] Serum glucose measurement (m ass/volume)Ordered By: Antwan Pitts on 08-22-2025 Glucose [Mass/Vol] 87 mg/dL 70-99 [facility] Serum or plasma calcium deangelo urement (mass/volume)Ordered By: Antwan Pitts on 08-22-2025 Calcium [Mass/Vol] 8.4 mg/dL 7.6-11.0 [facility] Serum or plasma urea nitroge n measurement (mass/volume)Ordered By: Antwan Pitts on 08-22-2025 Urea nitrogen [Mass/Vol] 18 mg/dL 4-19 [facility] Sodium levelOrdered By: Ajit Pitts on 08-22-2025 Sodium [Moles/Vol] 140 mmol/L 133-145 [facility] White blood cell (WBC) count Ordered By: Antwan Pitts on 08-22-2025 WBC (Bld) [#/Vol] 6.6 10*3/uL Normal 4.4-11.0 [facility] Comment on above: Performed By: #### L 501.5200, L100.0100, L501.2300, L500.2500 ####[facility] [address] [place], [address] Basic Metabolic Profile (BMP )on 08-20-2025 BUN/CRE 14.8 RATIO Normal 10-20 [facility] Comment on above: Performed By: #### L 100.0100, L500.2500 ####[facility] [address] [place], [address] Calcium [Mass/Vol] 8.3 mg/dL Normal 7.6-11.0 [facility] Comment on above: Performed By: #### L 100.0100, L500.2500 ####[facility] [address] [place], [address] Chloride [Moles/Vol] 107 mmol/L Normal 98-108 [facility] Comment on above: Performed By: #### L 100.0100, L500.2500 ####[facility] [address] [place], [address] CO2 [Moles/Vol] 21.3 mmol/L Normal 21.0-32.0 [facility] Comment on above: Performed By: #### L 100.0100, L500.2500 ####[facility] [address] [place], [address] Creatinine [Mass/Vol] 1.02 mg/dL Normal 0.70-1.20 [facility] Comment on above: Performed By: #### L 100.0100, L500.2500 ####[facility] [address] [place], [address] ECRCL 65.37 ml/min Normal 50-250 [facility] Comment on above: Performed By: #### L 100.0100, L500.2500 ####[facility] [address] [place], [address] GAP 11 Normal 5-15 [facility] Comment on above: Performed By: #### L 100.0100, L500.2500 ####[facility] [address] [place], [address] GFR/1.73 sq M.predicted among non-blacks MDRD (S/P/Bld) [Vol rate/Area] 79 mL/min/{1.73_m2} Normal >60 [facility] Comment on above: Result Comment: mL/m in/1.73m2 CKD-EPI Creatinine Equation (2020) Performed By: #### L 100.0100, L500.2500 ####[facility] [address] [place], [address] Glucose [Mass/Vol] 90 mg/dL Normal 70-99 [facility] Comment on above: Performed By: #### L 100.0100, L500.2500 ####[facility] [address] [place], [address] Potassium [Moles/Vol] 3.8 mmol/L Normal 3.3-5.1 [facility] Comment on above: Performed By: #### L 100.0100, L500.2500 ####[facility] [address] [place], [address] Sodium [Moles/Vol] 139 mmol/L Normal 133-145 [facility] Comment on above: Performed By: #### L 100.0100, L500.2500 ####[facility] [address] [place], [address] Urea nitrogen [Mass/Vol] 15 mg/dL Normal 4-19 [facility] Comment on above: Performed By: #### L 100.0100, L500.2500 ####[facility] [address] [place], [address] CBC W/Diff, Automatedon 08-09 Absolute Lymph 0.90 X10 3/uL Normal 0.83-4.51 [facility] Comment on above: Performed By: #### L 100.0100, L500.2500 ####[facility] [address] [place], [address] Absolute Neut 6.9 X10 3/uL Normal 2.0-7.7 [facility] Comment on above: Performed By: #### L 100.0100, L500.2500 ####[facility] [address] [place], [address] Basophils/100 WBC (Bld) 0.2 % Normal 0-1 [facility] Comment on above: Performed By: #### L 100.0100, L500.2500 ####[facility] [address] [place], [address] Eosinophils/100 WBC (Bld) 0.4 % Normal 0-5 [facility] Comment on above: Performed By: #### L 100.0100, L500.2500 ####[facility] [address] [place], [address] Erythrocyte distribution width (RBC) [Ratio] 16.9 % High 11.6-14.6 [facility] Comment on above: Performed By: #### L 100.0100, L500.2500 ####[facility] [address] [place], [address] Hematocrit (Bld) [Volume fraction] 33.7 % Low 40-54 [facility] Comment on above: Performed By: #### L 100.0100, L500.2500 ####[facility] [address] [place], [address] Hemoglobin (Bld) [Mass/Vol] 11.1 g/dL Low 13.0-16.5 [facility] Comment on above: Performed By: #### L 100.0100, L500.2500 ####[facility] [address] [place], [address] IG% 1.100 High 0.0-0.9 [facility] Comment on above: Result Comment: IG% - Immature Granulocytes (promyelocytes, myelocytes andmetamyelocytes) > 1% indicates that a LEFT SHIFT is Present. Performed By: #### L 100.0100, L500.2500 ####[facility] [address] [place], [address] Lymphocytes/100 WBC (Bld) 10.5 % Low 19-41 [facility] Comment on above: Performed By: #### L 100.0100, L500.2500 ####[facility] [address] [place], [address] MCH (RBC) [Entitic mass] 24.7 pg Low 27.0-32.0 [facility] Comment on above: Performed By: #### L 100.0100, L500.2500 ####[facility] [address] [place], [address] MCHC (RBC) [Mass/Vol] 32.9 g/dL Normal 32-36 [facility] Comment on above: Performed By: #### L 100.0100, L500.2500 ####[facility] [address] [place], [address] MCV (RBC) [Entitic vol] 74.9 fL Low 80-94 [facility] Comment on above: Performed By: #### L 100.0100, L500.2500 ####[facility] [address] [place], [address] Monocytes/100 WBC (Bld) 6.9 % Normal 0-10 [facility] Comment on above: Performed By: #### L 100.0100, L500.2500 ####[facility] [address] [place], [address] Neutrophils/100 WBC (Bld) 80.9 % High 47-70 [facility] Comment on above: Performed By: #### L 100.0100, L500.2500 ####[facility] [address] [place], [address] Nucleated RBC (Bld) [#/Vol] 0 10*3/uL Normal 0-5 [facility] Comment on above: Performed By: #### L 100.0100, L500.2500 ####[facility] [address] [place], [address] Platelet mean volume (Bld) [Entitic vol] 9.1 fL Normal 6.2-12.0 [facility] Comment on above: Performed By: #### L 100.0100, L500.2500 ####[facility] [address] [place], [address] Platelets (Bld) [#/Vol] 144 10*3/uL Low 150-450 [facility] Comment on above: Performed By: #### L 100.0100, L500.2500 ####[facility] [address] [place], [address] RBC (Bld) [#/Vol] 4.50 10*6/uL Low 4.6-6.2 [facility] Comment on above: Performed By: #### L 100.0100, L500.2500 ####[facility] [address] [place], [address] RDW SD 45.1 fl High 35.1-43.9 [facility] Comment on above: Performed By: #### L 100.0100, L500.2500 ####[facility] [id number] [place], [address] WBC (Bld) [#/Vol] 8.6 10*3/uL Normal 4.4-11.0 [facility] Comment on above: Performed By: #### L 100.0100, L500.2500 ####[facility] [id number] [place], [address] Consultation - Surgicalon 10 -12-2025 Consultation - Surgical Normal [facility] BASIC METABOLIC PANELon 10-1 Anion gap [Moles/Vol] 11 mmol/L Normal 3-13 [facility] Comment on above: Performed By: #### L AB15, [id number] ####Magnetic Tester: JENNI GERBER ([id number])PHILIP RAMIREZ RITTMAN (SWRLAB)[address] [place] [address] [place] Calcium [Mass/Vol] 8.6 mg/dL Low 8.8-10.0 [facility] Comment on above: Performed By: #### L AB15, [id number] ####Magnetic Tester: JENNI GERBER ([id number])[facility] RAMIREZ RITTMAN (SWRLAB)[address] Chloride [Moles/Vol] 109 mmol/L High 98-107 [facility] Comment on above: Performed By: #### L AB15, [id number] ####Magnetic Tester: JENNI GERBER ([id number])[facility] RAMIREZ RITTMAN (SWRLAB)[address] [place] [address] [place] CO2 [Moles/Vol] 19 mmol/L Low 23-31 [facility] Comment on above: Performed By: #### L AB15, [id number] ####Magnetic Tester: JENNI GERBER ([id number])[facility] RAMIREZ RITTMAN (SWRLAB)[address] [place] [address] [place] Creatinine [Mass/Vol] 1.19 mg/dL Normal 0.72-1.25 [facility] Comment on above: Performed By: #### L AB15, [id number] ####Magnetic Tester: JENNI GERBER ([id number])[facility] RAMIREZ RITTMAN (SWRLAB)[address] [place] [address] [place] GLOMERULAR FILTRATION RATE ML/MIN/1.73 SQ M.PREDICTED 65.3 mL/min/1.73m*2 Normal >60.0 [facility] Comment on above: Result Comment: Calc ulation based on the Chronic Kidney Disease Epidemiology Collaboration (CKD-EPI) equation refit without adjustment for race Performed By: #### L AB15, [id number] ####Magnetic Tester: JENNI GERBER ([id number])[facility] LIZARRAGATMAN (SWRLAB)[address] Glucose [Mass/Vol] 107 mg/dL Normal 82-115 [facility] Comment on above: Performed By: #### L AB15, [id number] ####Magnetic Tester: JENNI GERBER ([id number])[facility] JAMES LIZARRAGATMAN (SWRLAB)[address] [place] [address] Potassium [Moles/Vol] 3.8 mmol/L Normal 3.5-5.1 [facility] Comment on above: Result Comment: [facility] potassium values may be up to 0.5 mmol/L lower than serum values. Performed By: #### L AB15, [id number] ####Magnetic Tester: JENNI GERBER ([id number])[facility] LIZARRAGATMAN (SWRLAB)[address] [place] [address] Sodium [Moles/Vol] 139 mmol/L Normal 136-145 [facility] Comment on above: Performed By: #### L AB15, [id number] ####Magnetic Tester: JENNI GERBER ([id number])[facility]Pi[facility] LIZARRAGATMAN (SWRLAB)[address] [place] [address] Urea nitrogen [Mass/Vol] 19 mg/dL Normal 9-23 [facility] Comment on above: Performed By: #### L AB15, [id number] ####Magnetic Tester: JENNI GERBER ([id number])[facility] JAMES LIZARRAGATMAN (SWRLAB)[address] [place] [address] BLOOD CULTUREon 08-19-2025 Bacteria identified Cx Nom (Bld) BLOOD CULTURE Reference No growth at 5 days ORDER COMMENTS: Blood Collection Site: Left Hand [ S = SUSCEPTIBLE R = RESISTANT I = INTERMEDIATE S-DD = Susceptible-dose dependent NS = Non-susceptible NO = No Interpretation ] Normal [facility] Comment on above: Performed By: #### L [id number] ####Magnetic Tester: JENNI GERBER ([id number])[facility])[address] [place] [address] Bacteria identified Cx Nom (Bld) BLOOD CULTURE Reference No growth at 5 days ORDER COMMENTS: Blood Collection Site: Left Antecubital [ S = SUSCEPTIBLE R = RESISTANT I = INTERMEDIATE S-DD = Susceptible-dose dependent NS = Non-susceptible NO = No Interpretation ] Normal [facility] Comment on above: Performed By: #### L [id number] ####Magnetic Tester: JENNI GERBER ([id number])[facility] ([facility])[address] [place] [address] Basic metabolic 1998 panelon 08-19-2025 Anion gap [Moles/Vol] 11 mmol/L 3 - 13 mmol/L [facility] Calcium [Mass/Vol] 8.6 mg/dL Low 8.8 - 10. 0 mg/dL [facility] Chloride [Moles/Vol] 109 mmol/L High 98 - 10 7 mmol/L [facility] CO2 [Moles/Vol] 19 mmol/L Low 23 - 31 mmol/L [facility] Creatinine [Mass/Vol] 1.19 mg/dL 0.72 - 1.25 mg/dL [facility] GFR/1.73 sq M.predicted (S/P/Bld) [Vol rate/Area] 65.3 mL/min - PINF [facility] Comment on above: Calculation based on the Chronic Kidney Disease Epidemiology Collaboration (CKD-EPI) equation refit without adjustment for race Glucose [Mass/Vol] 107 mg/dL 82 - 115 mg/dL [facility] Potassium [Moles/Vol] 3.8 mmol/L 3.5 - 5.1 mmol/L [facility] Comment on above: Plasma potassium sunny ues may be up to 0.5 mmol/L lower than serum values. Sodium [Moles/Vol] 139 mmol/L 136 - 145 mmol/L [facility] Urea nitrogen [Mass/Vol] 19 mg/dL 9 - 23 mg/dL [facility] C-REACTIVE PROTEINon CRP [Mass/Vol] 54.6 mg/L High <5.0 [facility] Comment on above: Performed By: #### L AB15, [id number] ####Magnetic Tester: JENNI GERBER ([id number])[facility] (SWRLAB)[address] [place] [address] CBC W Auto Differential pane l (Bld)Ordered By: Sage Quinn on 08-19-2025 Basophils (Bld) [#/Vol] 0 10*3/uL 0.0 - 0.2 10*3/uL [facility] Basophils/100 WBC (Bld) 0.2 % 0.0 - 2.0 % [facility] Eosinophils (Bld) [#/Vol] 0 10*3/uL 0.0 - 0.5 10*3/uL [facility] Eosinophils/100 WBC (Bld) 0.2 % 0.0 - 6.0 % [facility] Erythrocyte distribution width (RBC) [Ratio] 17.1 % High 11.5 - 15.0 % [facility] Hematocrit (Bld) [Volume fraction] 36.7 % Low 40.0 - 52.0 % [facility] Hemoglobin (Bld) [Mass/Vol] 12.2 g/dL Low 13.0 - 18.0 g/dL [facility] Immature granulocytes (Bld) [#/Vol] 0.1 10*3/uL High NINF - 0.1 10*3/uL [facility] Immature granulocytes/100 WBC (Bld) 0.9 % 0.0 - 2.0 % [facility] Interpretation and review of laboratory results Abnormal [facility] Lymphocytes (Bld) [#/Vol] 0.7 10*3/uL Low 1.0 - 4.3 10*3/uL [facility] Lymphocytes/100 WBC (Bld) 5.3 % Low 15.0 - 45.0 % [facility] MCH (RBC) [Entitic mass] 25.1 pg Low 26.0 - 34.0 pg [facility] MCHC (RBC) [Mass/Vol] 33.2 % 30.5 - 36.0 % [facility] MCV (RBC) [Entitic vol] 75.4 fL Low 77.0 - 99.0 fL [facility] Monocytes (Bld) [#/Vol] 0.9 10*3/uL 0.0 - 0.9 10*3/uL [facility] Monocytes/100 WBC (Bld) 6.9 % 5.0 - 13.0 % [facility] Neutrophils (Bld) [#/Vol] 11.8 10*3/uL High 1.8 - 7.5 10*3/uL [facility] Neutrophils/100 WBC (Bld) 86.5 % High 38.0 - 82.0 % [facility] Nucleated RBC/100 WBC (Bld) [Ratio] 0 % [facility] Platelet mean volume (Bld) [Entitic vol] 8.9 fL Low 9.0 - 12.7 fL [facility] Comment on above: MPV is a calculated measurement using platelet volume ratio Platelets (Bld) [#/Vol] 155 10*3/uL 140 - 440 10*3/uL [facility] RBC (Bld) [#/Vol] 4.87 10*6/uL 4.40 - 5.9 0 10*6/uL [facility] WBC (Bld) [#/Vol] 13.7 10*3/uL High 3.6 - 10.7 10*3/uL [facility] CBC WITH AUTO DIFFERENTIALon 08-19-2025 Basophils (Bld) [#/Vol] 0.0 10*3/uL Normal 0.0-0.2 [facility] Comment on above: Performed By: #### Charli PRITCHARD322, [id number] ####Magnetic Tester: JENNI GERBER ([id number])[facility] JAMES RITTMAN (SWRLAB)[address] [place] [address] Basophils/100 WBC (Bld) 0.2 % Normal 0.0-2.0 [facility] Comment on above: Performed By: #### Charli AB322, [id number] ####Magnetic Tester: JENNI GERBER ([id number])[facility] JAMES RITTMAN (SWRLAB)[address] [place] [address] Eosinophils (Bld) [#/Vol] 0.0 10*3/uL Normal 0.0-0.5 [facility] Comment on above: Performed By: #### Charli AB322, [id number] ####Magnetic Tester: JENNI GERBER ([id number])[facility]A JAMES RITTMAN (SWRLAB)[address] [place] [address] [place] Eosinophils/100 WBC (Bld) 0.2 % Normal 0.0-6.0 [facility] Comment on above: Performed By: #### Charli AB322, [id number] ####Magnetic Tester: JENNI GERBER ([id number])PHILIP RAMIREZ RITTMAN (SWRLAB)[address] [place] [address] Erythrocyte distribution width (RBC) [Ratio] 17.1 % High 11.5-15.0 [facility] Comment on above: Performed By: #### Charli PRITCHARD322, [id number] ####Magnetic Tester: JENNI GERBER ([id number])[facility]ENTERPi[facility] RAMIREZ RITTMAN (SWRLAB)[address] [place] [address] Hematocrit (Bld) [Volume fraction] 36.7 % Low 40.0-52.0 [facility] Comment on above: Performed By: #### Charli PRITCHARD32Lisandra, [id number] ####Magnetic Tester: JENNI GERBER ([id number])[facility]ENTERPi[facility] RAMIREZ RITTMAN (SWRLAB)[address] [place] [address] Hemoglobin (Bld) [Mass/Vol] 12.2 g/dL Low 13.0-18.0 [facility] Comment on above: Performed By: #### Charli PRITCHARD322, [id number] ####Magnetic Tester: JENNI GERBER ([id number])[facility]ENTER[facility] RAMIREZ RITTMAN (SWRLAB)[address] [place] [address] IMMATURE GRANS % 0.9 % Normal 0.0-2.0 [facility] Comment on above: Performed By: #### Charli AB322, [id number] ####Magnetic Tester: JENNI GERBER ([id number])[facility] RAMIREZ RITTMAN (SWRLAB)[address] [place] [address] IMMATURE GRANS ABSOLUTE 0.1 10*3/uL High <0.1 [facility] Comment on above: Performed By: #### Charli AB322, [id number] ####Magnetic Tester: JENNI GERBER ([id number])[facility] RAMIREZ RITTMAN (SWRLAB)[address] [place] [address] [place] Lymphocytes (Bld) [#/Vol] 0.7 10*3/uL Low 1.0-4.3 [facility] Comment on above: Performed By: #### Charli AB322, [id number] ####Magnetic Tester: JENNI GERBER ([id number])[facility] RAMIREZ RITTMAN (SWRLAB)[address] [place] [address] [place] Lymphocytes/100 WBC (Bld) 5.3 % Low 15.0-45.0 [facility] Comment on above: Performed By: #### Charli AB322, [id number] ####Magnetic Tester: JENNI GERBER ([id number])[facility]ENTER[facility] RAMIREZ RITTMAN (SWRLAB)[address] [place] [address] [place] MCH (RBC) [Entitic mass] 25.1 pg Low 26.0-34.0 [facility] Comment on above: Performed By: #### Charli AB322, [id number] ####Magnetic Tester: JENNI GERBER ([id number])[facility]ENTER[facility] RAMIREZ RITTMAN (SWRLAB)[address] [place] [address] MCHC 33.2 % Normal 30.5-36.0 [facility] Comment on above: Performed By: #### Charli AB322, [id number] ####Magnetic Tester: JENNI GERBER ([id number])[facility] RAMIREZ RITTMAN (SWRLAB)[address] [place] [address] MCV (RBC) [Entitic vol] 75.4 fL Low 77.0-99.0 [facility] Comment on above: Performed By: #### L AB322, [id number] ####Magnetic Tester: JENNI GERBER ([id number])[facility] RAMIREZ RITTMAN (SWRLAB)[address] [place] [address] [place] Monocytes (Bld) [#/Vol] 0.9 10*3/uL Normal 0.0-0.9 [facility] Comment on above: Performed By: #### L AB322, [id number] ####Magnetic Tester: JENNI GERBER ([id number])[facility] RAMIREZ RITTMAN (SWRLAB)[address] [place] [address] [place] Monocytes/100 WBC (Bld) 6.9 % Normal 5.0-13.0 [facility] Comment on above: Performed By: #### L AB322, [id number] ####Magnetic Tester: JENNI GERBER ([id number])[facility]ENTER[facility] RAMIREZ RITTMAN (SWRLAB)[address] [place] [address] [place] NEUTROPHILS ABSOLUTE 11.8 10*3/uL High 1.8-7.5 [facility] Comment on above: Performed By: #### Charli AB322, [id number] ####Magnetic Tester: JENNI GERBER ([id number])[facility]ENTER[facility] RAMIREZ RITTMAN (SWRLAB)[address] [place] [address] [place] Neutrophils/100 WBC (Bld) 86.5 % High 38.0-82.0 [facility] Comment on above: Performed By: #### L AB322, [id number] ####Magnetic Tester: JENNI GERBER ([id number])[facility] RAMIREZ RITTMAN (SWRLAB)[address] [place] [address] [place] NRBC 0.0 /100 WBCs Normal 0.0-2.0 [facility] Comment on above: Performed By: #### L AB322, [id number] ####Magnetic Tester: JENNI GERBER ([id number])[facility] RAMIREZ RITTMAN (SWRLAB)[address] [place] [address] Platelet mean volume (Bld) [Entitic vol] 8.9 fL Low 9.0-12.7 [facility] Comment on above: Result Comment: MPV is a calculated measurement using platelet volume ratio Performed By: #### L AB322, [id number] ####Magnetic Tester: JENNI GERBER ([id number])[facility] RAMIREZ RITTMAN (SWRLAB)[address] [place] [address] [place] Platelets (Bld) [#/Vol] 155 10*3/uL Normal 140-440 [facility] Comment on above: Performed By: #### L AB322, [id number] ####Magnetic Tester: JENNI GERBER ([id number])[facility] RAMIREZ RITTMAN (SWRLAB)[address] [place] [address] RBC (Bld) [#/Vol] 4.87 10*6/uL Normal 4.40-5.90 [facility] Comment on above: Performed By: #### L AB322, [id number] ####Magnetic Tester: JENNI GERBER ([id number])[facility] RAMIREZ RITTMAN (SWRLAB)[address] [place] [address] WBC (Bld) [#/Vol] 13.7 10*3/uL High 3.6-10.7 [facility] Comment on above: Performed By: #### L AB322, [id number] ####Magnetic Tester: JENNI GERBER ([id number])[facility] LIZARRAGATMAN (SWRLAB)[address] [place] [address] ED Nursing Noteon 08-19-2025 ED Nursing Note Stockinette placed o ivette pts left ac IV site. Transfer paperwork sent with pt and . to drive pt to [facility]. Normal [facility] ED Nursing Note Pt requesting to go to [facility] by private car, will drive. Dr. Birch in to speak with pt. Normal [facility] ED Nursing Note Dr. Birch speaking w [facility] hospitalist. Normal [facility] ED Nursing Note Applied bacitracin t o right forearm area of blisters and redness, covered with nonstick pads and secured with roll gauze. Normal [facility] ED Nursing Note Call placed to [facility]. Spoke with lead refinery supervisor who states they do have beds and will have the hospitalist call back. Normal [facility] ED Nursing Note Pt ambulatory to ED4 with with c/o rash and blisters to right forearm. Pt was mowing yesterday then noted this either last night or this morning. He states it is not poison kate. He rates pain 5/10. Pt took Tylenol at 1300. He initially had one blister this morning but his popped it so now it is triple the size. Normal [facility] ED Provider Noteon ED Provider Note EMERGENCY DEPARTMENT ENCOUNTER Pt Name: Kenn Arshad Birthdate 1955 Date of evaluation: 08/19/2025 ED Provider: Tono Birch MD CHIEF COMPLAINT Chief Complaint Patient presents with Rash HISTORY OF PRESENT ILLNESS (Location/Symptom, Timing/Onset, Context/Setting, Quality, Duration, Modifying Factors, Severity) Note limiting factors. I wore appropriate PPE for the entirety of this encounter. HPI Kenn Arshad is a 69 y.o. who presents to the emergency department with a rapidly advancing right upper extremity cellulitis in an immunosuppressed state Patient has kidney cancer and is on Keytruda for this issue. He also has a history of lung cancer with brain metastases. He is neurologically completely normal. History of pulmonary embolism. Ex-smoker. Family history of coronary disease. Yesterday his cat which is an indoor cat vaccinated against rabies bit him on the right hand second digit at the MCP joint. Rapidly spreading cellulitis moving proximally up his hand and his wrist and all of his right forearm since then. It is hot to the touch it is erythematous and a bit stir formed on the anterior surface of the right forearm which his ruptured, this made the cellulitis bigger. He endorses a temperature of 101-0101 Fahrenheit at home. He took Tylenol just before he arrived so his temperature is 37 Celsius now. No numbness weakness or paresthesias in the right upper extremity. He is immunosuppressed on the chemotherapy medication for his kidney cancer. There are no foreign bodies or tendons or cat teeth visible in the bitewound on the right posterior hand second digit. By comparison left arm left leg right leg are normal. No chest pain palpitation shortness of breath or abdominal pain. Right arm is hot to the touch. Nursing Notes were reviewed. Limitations to history: None Outside historians: Family at bedside REVIEW OF SYSTEMS Review of Systems Pertinent positives and negatives as per HPI PAST MEDICAL HISTORY Medical History[1] SURGICAL HISTORY Surgical History[2] CURRENT MEDICATIONS Previous Medications AMLODIPINE (NORVASC) 10 MG TABLET Take 1 tablet (10 mg) by mouth daily. APIXABAN (ELIQUIS) 2.5 MG TABLET Take 1 tablet (2.5 mg) by mouth 2 times daily for 360 doses. CARVEDILOL (COREG) 25 MG TABLET TAKE 1 TABLET BY MOUTH TWICE A DAY WITH MEALS HYDRALAZINE (APRESOLINE) 50 MG TABLET TAKE 1 TABLET BY MOUTH TWICE A DAY IPRATROPIUM-ALBUTEROL (DUO-NEB) 0.5-2.5 MG/3 ML NEBULIZER SOLUTION Take 3 mL by nebulization three times daily. IPRATROPIUM-ALBUTEROL (DUO-NEB) 0.5-2.5 MG/3 ML NEBULIZER SOLUTION Take 3 mL by nebulization three times daily. NITROGLYCERIN (NITROSTAT) 0.[address] 1 tablet (0.4 mg) under the tongue every 5 minutes as needed for chest pain. OMEPRAZOLE (PRILOSEC) [address] CAPSULE TAKE 1 CAPSULE (20 MG) BY MOUTH DAILY NEEDED (REFLUX). PEMBROLIZUMAB (KEYTRUDA) 100 MG/4ML CHEMO INJECTION Infuse 200 mg into a venous catheter. PREDNISONE (DELTASONE) 10 MG TABLET 10 mg every other day. Takes 5 mg on opposite days ROSUVASTATIN (CRESTOR) 40 MG TABLET Take 1 tablet (40 mg) by mouth daily. ALLERGIES Patient has no known allergies. FAMILY HISTORY Family History[3] SOCIAL HISTORY Social History[4] PHYSICAL EXAM ED Triage Vitals [08/19/25 1537] Temp Heart Rate Resp BP 37 ?C (98.6 ?F) 91 16 117/64 SpO2 Temp Source Heart Rate Source Patient Position 95 % Oral -- -- BP Location FiO2 (%) -- -- Physical Exam General: WDWN adult in NAD. Non-toxic appearing HENT: Head NCAT, EOMI with no erythema, swelling or discharge. Oropharyngeal mucus membranes moist, pink, no exudate Neck: Full ROM, supple, no rigidity Cardio: RRR, nl s1 s2 no m/r/g, extremities warm, dry, well perfused, non-edematous, 2+ bilateral radial pulses, 2+ bilateral DP pulses. Less than 2-second capillary refill in all digits on the right hand Lungs: CTAB, no wheezes, rales, rhonchi, normal work of breathing Abdomen: Soft, NT, ND, non-rigid, BS x 4 normal MSK: Right elbow nontender to palpation and is not involved with the cellulitis. Full range of flexion extension supination pronation without pain. The right elbow joint is not erythematous or hot to the touch there is no septic joint The right forearm compartment is hot to the touch and erythematous but is not indurated. Argues against DVT. No bony deformity. The right wrist is nontender to palpation, he still has full range of flexion extension adduction abduction of the right wrist, though he complains of pain in the right hand at the second MCP joint when he moves the right wrist The right hand is painful to palpation at the second digit at the MCP joint on the posterior side. If he fights through discomfort he can still flex and extend fully at the MCP joint and the PIP joint and the DIP joint on the right hand but it is painful to do so. By comparison di (more content not included)... Normal [facility] ESR (Bld) [Velocity]on 08-19 Interpretation and review of laboratory results Abnormal [facility] Extremity Upper without Cont raon 08-19-2025 Extremity Upper without Contra Normal [facility] H AND P Exam - Hospitaliston 08-19-2025 H&P Exam - Hospitalist Normal [facility] LACTIC ACID WITH REFLEXon Lactate [Moles/Vol] 1.3 mmol/L Normal 0.5-2.2 [facility] Comment on above: Performed By: #### L [id number] ####Magnetic Tester: JENNI GERBER ([id number])[facility]ER ([facility] [place] [address] Laboratory - Chemistry and C hemistry - challengeon 08-19-2025 Lactate [Moles/Vol] 1.3 mmol/L 0.5 - 2. 2 mmol/L [facility] CRP [Mass/Vol] 54.6 mg/L High NINF - 5.0 mg/L [facility] Laboratory - Hematology and Cell countson 08-19-2025 ESR (Bld) [Velocity] 29 mm/h High [facility] No Panel Informationon 08-19 Interpretation and review of laboratory results Normal [facility] Interpretation and review of laboratory results Abnormal [facility] SEDIMENTATION RATE, AUTOMATE Don 08-19-2025 SEDIMENTATION RATE, ERYTHROCYTE 29 mm/hr High 0-10 [facility] Comment on above: Performed By: #### L AB322, [id number] ####Magnetic Tester: JENNI GERBER ([id number])[facility] (SWRLAB)[address] [place] [address] XR Hand - right 3 Viewson Marked osteophyte at the third MCP joint, which may be seen with hemachromatosis or other more common etiologies. Large amount soft tissue swelling. Report Dictated on Electronically Signed By: Elisha Paniagua MD Electronically Signed Date/Time: 08/19/2025 4:33 PM EDT [facility] [employer] Patient Name: KENN VAUGHN : 1955 Exam Date/Time: 08/19/2025 16:19 Procedure: XR HAND 3+ VIEWS RIGHT Ordering Provider: BIRCH DOUGLAS Reason For Exam: Right hand cat bite second digit MCP joint. Gas? Rapidly spreading cellulitis moving down the forearm EXAMINATION: Right hand three views INDICATION: Right hand cat bite second digit MCP joint. Gas? Rapidly spreading cellulitis moving down the forearm FINDINGS: No acute fracture or dislocation is demonstrated. Mild degenerative changes of the second IP joints. Moderate to severe joint space loss at the third MCP joint with large with osteophytes, medially. Large amount soft tissue swelling of the hand is present. [facility] Elisha Paniagua MD - 08/19/2025 Patient Name: KENN ARSHAD : 1955 Exam Date/Time: 08/19/2025 16:19 Procedure: XR HAND 3+ VIEWS RIGHT Ordering Provider: BIRCH DOUGLAS Reason For Exam: Right hand cat bite second digit MCP joint. Gas? Rapidly spreading cellulitis moving down the forearm EXAMINATION: Right hand three views INDICATION: Right hand cat bite second digit MCP joint. Gas? Rapidly spreading cellulitis moving down the forearm FINDINGS: No acute fracture or dislocation is demonstrated. Mild degenerative changes of the second IP joints. Moderate to severe joint space loss at the third MCP joint with large with osteophytes, medially. Large amount soft tissue swelling of the hand is present. IMPRESSION: Marked osteophyte at the third MCP joint, which may be seen with hemachromatosis or other more common etiologies. Large amount soft tissue swelling. Report Dictated on Electronically Signed By: Elisha Paniagua MD Electronically Signed Date/Time: 08/19/2025 4:33 PM EDT [facility] Radiology Study observation (narrative) [facility] XR Hand - right 3 ViewsOrder ed By: Elisha Paniagua on 08-19-2025 [employer] Work Phone: XR Radius and Ulna - right A P and Lateralon 08-19-2025 Volar forearm soft t issue swelling without radiopaque foreign body. Report Dictated on Electronically Signed By: Teodoro Powell MD Electronically Signed Date/Time: 08/19/2025 4:26 PM EDT [employer] Patient Name: KENN VAUGHN : 1955 Exam Date/Time: 08/19/2025 16:20 Procedure: XR FOREARM 2 VIEWS RIGHT Ordering Provider: BIRCH DOUGLAS Reason For Exam: Rapidly spreading cellulitis moving on the forearm. Bitten by cat RIGHT FOREARM: CLINICAL INDICATION: Cellulitis, status post animal bite TECHNIQUE: AP and Lateral COMPARISON: None FINDINGS: There is no evidence for fracture or dislocation. No bone lesion is identified. Soft tissue swelling is noted along the volar aspect of the forearm, best seen on lateral view. No radiopaque foreign body identified. Subtle atherosclerotic calcifications are seen. [facility] Teodoro Powell MD - 08/19/2025 Patient Name: KENN ARSHAD : 1955 Exam Date/Time: 08/19/2025 16:20 Procedure: XR FOREARM 2 VIEWS RIGHT Ordering Provider: BIRCH DOUGLAS Reason For Exam: Rapidly spreading cellulitis moving on the forearm. Bitten by cat RIGHT FOREARM: CLINICAL INDICATION: Cellulitis, status post animal bite TECHNIQUE: AP and Lateral COMPARISON: None FINDINGS: There is no evidence for fracture or dislocation. No bone lesion is identified. Soft tissue swelling is noted along the volar aspect of the forearm, best seen on lateral view. No radiopaque foreign body identified. Subtle atherosclerotic calcifications are seen. IMPRESSION: Volar forearm soft tissue swelling without radiopaque foreign body. Report Dictated on Electronically Signed By: Teodoro Powell MD Electronically Signed Date/Time: 08/19/2025 4:26 PM EDT [facility] Radiology Study observation (narrative) [facility] XR Radius and Ulna - right A P and LateralOrdered By: Teodoro Powell on 08-19-2025 [facility] Work Phone: Absolute lymphocyte countOrd ered By: Angela Rodriguez on 08-16-2025 Lymphocytes Auto (Unsp spec) [#/Vol] 1.03 10*3/uL 0.83-4.51 [facility] Absolute neutrophil countOrd ered By: Angela Rodriguez on 08-16-2025 Neutrophils (Bld) [#/Vol] 4.8 10*3/uL 2.0-7.7 [facility] Anion gap in Serum or Plasma Ordered By: Angela Rodriguez on 08-16-2025 Anion gap [Moles/Vol] 11 mmol/L 5-15 [facility] Automated lymphocyte count a s percentage of total leukocytesOrdered By: Angela Rodriguez on 08-16-2025 Lymphocytes/100 WBC Auto (Unsp spec) 14.7 % Low 19-41 [facility] BUN/creatinine ratioOrdered By: Angela Rodriguez on 08-16-2025 Urea nitrogen/Creatinine [Mass ratio] 23.4 mg/mg High 10-20 [facility] Basophil percentageOrdered B y: Angela Rodriguez on 08-16-2025 Basophils/100 WBC (Bld) 0.7 % 0-1 [facility] Bilirubin, totalOrdered By: Angela Rodriguez on 08-16-2025 Bilirubin [Mass/Vol] 0.46 mg/dL 0.00-1.30 [facility] CBC W/Diff, Automatedon Absolute Lymph 1.03 X10 3/uL Normal 0.83-4.51 [facility] Comment on above: Performed By: #### L 100.0100, L501.2300, L500.4050 ####[facility] [address] [place], [address] Absolute Neut 4.8 X10 3/uL Normal 2.0-7.7 [facility] Comment on above: Performed By: #### L 100.0100, L501.2300, L500.4050 ####[facility] [address] [place], [address] Basophils/100 WBC (Bld) 0.7 % Normal 0-1 [facility] Comment on above: Performed By: #### L 100.0100, L501.2300, L500.4050 ####[facility] [address] [place], [address] Eosinophils/100 WBC (Bld) 1.9 % Normal 0-5 [facility] Comment on above: Performed By: #### L 100.0100, L501.2300, L500.4050 ####[facility] [address] [place], [address] Erythrocyte distribution width (RBC) [Ratio] 16.7 % High 11.6-14.6 [facility] Comment on above: Performed By: #### L 100.0100, L501.2300, L500.4050 ####[facility] [address] [place], [address] Hematocrit (Bld) [Volume fraction] 39.0 % Low 40-54 [facility] Comment on above: Performed By: #### L 100.0100, L501.2300, L500.4050 ####[facility] [address] [place], [address] Hemoglobin (Bld) [Mass/Vol] 12.4 g/dL Low 13.0-16.5 [facility] Comment on above: Performed By: #### L 100.0100, L501.2300, L500.4050 ####[facility] [address] [place], [address] IG% 3.000 High 0.0-0.9 [facility] Comment on above: Result Comment: IG% - Immature Granulocytes (promyelocytes, myelocytes andmetamyelocytes) > 1% indicates that a LEFT SHIFT is Present. Performed By: #### L 100.0100, L501.2300, L500.4050 ####[facility] [address] [place], [address] Lymphocytes/100 WBC (Bld) 14.7 % Low 19-41 [facility] Comment on above: Performed By: #### L 100.0100, L501.2300, L500.4050 ####[facility] [address] [place], [address] MCH (RBC) [Entitic mass] 24.3 pg Low 27.0-32.0 [facility] Comment on above: Performed By: #### L 100.0100, L501.2300, L500.4050 ####[facility] [address] [place], [address] MCHC (RBC) [Mass/Vol] 31.8 g/dL Low 32-36 [facility] Comment on above: Performed By: #### L 100.0100, L501.2300, L500.4050 ####[facility] [address] [place], [address] MCV (RBC) [Entitic vol] 76.3 fL Low 80-94 [facility] Comment on above: Performed By: #### L 100.0100, L501.2300, L500.4050 ####[facility] [address] [place], [address] Monocytes/100 WBC (Bld) 11.0 % High 0-10 [facility] Comment on above: Performed By: #### L 100.0100, L501.2300, L500.4050 ####[facility] [address] [place], [address] Neutrophils/100 WBC (Bld) 68.7 % Normal 47-70 [facility] Comment on above: Performed By: #### L 100.0100, L501.2300, L500.4050 ####[facility] [address] [place], [address] Nucleated RBC (Bld) [#/Vol] 0 10*3/uL Normal 0-5 [facility] Comment on above: Performed By: #### L 100.0100, L501.2300, L500.4050 ####[facility] [address] [place], [address] Platelet mean volume (Bld) [Entitic vol] 8.9 fL Normal 6.2-12.0 [facility] Comment on above: Performed By: #### L 100.0100, L501.2300, L500.4050 ####[facility] [address] [place], [address] Platelets (Bld) [#/Vol] 166 10*3/uL Normal 150-450 [facility] Comment on above: Performed By: #### L 100.0100, L501.2300, L500.4050 ####[facility] [address] [place], [address] RBC (Bld) [#/Vol] 5.11 10*6/uL Normal 4.6-6.2 [facility] Comment on above: Performed By: #### L 100.0100, L501.2300, L500.4050 ####[facility] [address] [place], [address] RDW SD 45.9 fl High 35.1-43.9 [facility] Comment on above: Performed By: #### L 100.0100, L501.2300, L500.4050 ####[facility] [address] [place], [address] WBC (Bld) [#/Vol] 7.0 10*3/uL Normal 4.4-11.0 [facility] Comment on above: Performed By: #### L 100.0100, L501.2300, L500.4050 ####[facility] [address] [place], [address] Carbon dioxide, total [Moles /volume] in Central venous bloodOrdered By: Angela Rodriguez on 08-16-2025 CO2 [Moles/Vol] 20.3 mmol/L Low 21.0-32.0 [facility] Chloride assayOrdered By: Ivonne Rodriguez on 08-16-2025 Chloride [Moles/Vol] 107 mmol/L 98-108 [facility] Comprehensive Metabolic Prof ilon 08-16-2025 Albumin [Mass/Vol] 3.8 g/dL Normal 3.4-4.8 [facility] Comment on above: Performed By: #### L 100.0100, L501.2300, L500.4050 ####[facility] [address] [place], [address] Albumin/Globulin [Mass ratio] 1.9 {ratio} Normal 0.9-2.4 [facility] Comment on above: Performed By: #### L 100.0100, L501.2300, L500.4050 ####[facility] [address] [place], [address] ALK PHOS 50 U/L Normal 40-129 [facility] Comment on above: Performed By: #### L 100.0100, L501.2300, L500.4050 ####[facility] [address] [place], [address] ALT [Catalytic activity/Vol] 12 U/L Normal <=46 [facility] Comment on above: Performed By: #### L 100.0100, L501.2300, L500.4050 ####[facility] [address] [place], [address] AST [Catalytic activity/Vol] 15 U/L Normal <=37 [facility] Comment on above: Performed By: #### L 100.0100, L501.2300, L500.4050 ####[facility] [address] [place], [address] Bilirubin [Mass/Vol] 0.46 mg/dL Normal 0.00-1.30 [facility] Comment on above: Performed By: #### L 100.0100, L501.2300, L500.4050 ####[facility] [address] [place], [address] BUN/CRE 23.4 RATIO High 10-20 [facility] Comment on above: Performed By: #### L 100.0100, L501.2300, L500.4050 ####[facility] [address] [place], [address] Calcium [Mass/Vol] 8.8 mg/dL Normal 7.6-11.0 [facility] Comment on above: Performed By: #### L 100.0100, L501.2300, L500.4050 ####[facility] [address] [place], [address] Chloride [Moles/Vol] 107 mmol/L Normal 98-108 [facility] Comment on above: Performed By: #### L 100.0100, L501.2300, L500.4050 ####[facility] [address] [place], [address] CO2 [Moles/Vol] 20.3 mmol/L Low 21.0-32.0 [facility] Comment on above: Performed By: #### L 100.0100, L501.2300, L500.4050 ####[facility] [address] [place], [address] Creatinine [Mass/Vol] 1.01 mg/dL Normal 0.70-1.20 [facility] Comment on above: Performed By: #### L 100.0100, L501.2300, L500.4050 ####[facility] [address] [place], [address] ECRCL 66.69 ml/min Normal 50-250 [facility] Comment on above: Performed By: #### L 100.0100, L501.2300, L500.4050 ####[facility] [address] [place], [address] GAP 11 Normal 5-15 [facility] Comment on above: Performed By: #### L 100.0100, L501.2300, L500.4050 ####[facility] [address] [place], [address] GFR/1.73 sq M.predicted among non-blacks MDRD (S/P/Bld) [Vol rate/Area] 80 mL/min/{1.73_m2} Normal >60 [facility] Comment on above: Result Comment: mL/m in/1.73m2 CKD-EPI Creatinine Equation (2020) Performed By: #### L 100.0100, L501.2300, L500.4050 ####[facility] [address] [place], [address] Globulin (S) [Mass/Vol] 2.0 g/dL Low 2.2-4.2 [facility] Comment on above: Performed By: #### L 100.0100, L501.2300, L500.4050 ####[facility] [address] [place], [address] Glucose [Mass/Vol] 93 mg/dL Normal 70-99 [facility] Comment on above: Performed By: #### L 100.0100, L501.2300, L500.4050 ####[facility] [address] [place], [address] Potassium [Moles/Vol] 3.8 mmol/L Normal 3.3-5.1 [facility] Comment on above: Performed By: #### L 100.0100, L501.2300, L500.4050 ####[facility] [address] [place], [address] Sodium [Moles/Vol] 139 mmol/L Normal 133-145 [facility] Comment on above: Performed By: #### L 100.0100, L501.2300, L500.4050 ####[facility] [address] [place], [address] T PROT 5.8 g/dL Low 5.9-8.4 [facility] Comment on above: Performed By: #### L 100.0100, L501.2300, L500.4050 ####[facility] [address] [place], [address] Urea nitrogen [Mass/Vol] 24 mg/dL High 4-19 [facility] Comment on above: Performed By: #### L 100.0100, L501.2300, L500.4050 ####[facility] [address] [place], [address] Eosinophil percentageOrdered By: Angela Rodriguez on 08-16-2025 Eosinophils/100 WBC (Bld) 1.9 % 0-5 [facility] Erythrocyte distribution wid th ratioOrdered By: [facility] Rordiguez on 08-16-2025 Erythrocyte distribution width (RBC) [Ratio] 16.7 % High 11.6-14.6 [facility] Erythrocyte distribution wid th standard deviationOrdered By: [facility] Rodriguez on 08-16-2025 Erythrocyte distribution width (RBC) [Ratio] 45.9 fl High 35.1-43.9 [facility] Glomerular filtration rate ( GFR) estimation/1.73 sq m using serum, plasma, or whole bOrdered By: [facility] Rodriguez on 08-16-2025 GFR/1.73 sq M.predicted among non-blacks MDRD (S/P/Bld) [Vol rate/Area] 80 mL/min/{1.73_m2} >60 [facility] Comment on above: mL/min/1.73m2 CKD-EP I Creatinine Equation (2020) Hematocrit Auto (Bld) [Volum e fraction]Ordered By: [facility] Rodriguez on 08-16-2025 Hematocrit (Bld) [Volume fraction] 39.0 % Low 40-54 [facility] Hemoglobin measurementOrdere d By: Angela Rodriguez on 08-16-2025 Hemoglobin (Bld) [Mass/Vol] 12.4 g/dL Low 13.0-16.5 [facility] Immature granulocytes/100 WB C Auto (Bld)Ordered By: Angela Rodriguez on 08-16-2025 Immature granulocytes/100 WBC (Bld) 3.000 % High 0.0-0.9 [facility] Comment on above: IG% - Immature Granu locytes (promyelocytes, myelocytes and metamyelocytes) > 1% indicates that a LEFT SHIFT is Present. Laboratory - Chemistry and C hemistry - challengeOrdered By: Angela Rodriguez on 08-16-2025 AST [Catalytic activity/Vol] 15 U/L <38 [facility] MCV (mean corpuscular volume ) determinationOrdered By: Angela Rodriguez on 08-16-2025 MCV (RBC) [Entitic vol] 76.3 fL Low 80-94 [facility] MRI BRAIN WO/W IVCONon 08-16 MRI BRAIN WO/W IVCON * * *Final Report* * * * * * SEE BOTTOM OF REPORT FOR ADDENDED TEXT * * * DATE OF EXAM: Aug 16 2025 3:03PM WR [id number] - MRI BRAIN WO/W IVCON / PROCEDURE REASON: Secondary malignant neoplasm of brain (HCC) * * * * Physician Interpretation * * * * * * * * * * * * ORIGINAL REPORT * * * * * * * * EXAMINATION: MRI BRAIN WO/W IVCON CLINICAL HISTORY: 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 Currently on Keytruda TECHNIQUE: Routine brain MRI protocol without and with contrast including diffusion images. MR perfusion was performed. MQ: [id number] Contrast: 16 mL Dotarem IV COMPARISON: MRI brain 05/18/2025 and priors RESULT: Acute Change: There is no evidence of restricted diffusion to suggest an acute infarct. Hemorrhage: Extensive susceptibility corresponding to the LEFT periatrial lesion is noted compatible with intralesional blood products. Mass Lesion/ Mass Effect: Overall similar appearance of heterogeneously enhancing mass within the LEFT periatrial white matter extending into the subcortical LEFT superior parietal lobule with minimally increased T2/FLAIR hyperintense signal abnormality extending into the LEFT perirolandic region (for example, series 3, image 23). Small focus of central diffusion restriction is again noted. No significant mass effect. No new lesions. Chronic Change: In addition to above, Patchy and confluent increased T2 and FLAIR signal is present in the supratentorial white matter, a nonspecific finding that most commonly represents moderate chronic small vessel disease. Parenchyma: There is moderate generalized parenchymal volume loss. Ventricles: The lateral and third ventricles are enlarged but this likely relates to central volume loss. Skull Base: Hypothalamic and pituitary region are grossly normal. Craniocervical junction is normal. No significant marrow replacement process. Vasculature: Major intracranial arterial structures, and dural venous sinuses show typical flow void, suggesting patency by spin echo criteria. Other: Moderate patchy paranasal sinus mucosal opacification, particularly prominent within the bilateral maxillary and sphenoid sinuses, similar to prior exam. Trace mastoid fluid bilaterally. Bilateral lens replacements. The extracranial soft tissues are unremarkable. Lobulated enhancing soft tissue within the midline nasopharynx. Perfusion: Perfusion maps are technically adequate. Decreased conspicuity of elevated CBV along the lateral aspect of the enhancing component. IMPRESSION: Similar size and appearance of the LEFT periatrial enhancing component, with similar to minimally increased T2/FLAIR hyperintense signal extending into the LEFT perirolandic region, possibly posttreatment related. A small amount of elevated CBV within the lateral margin of the enhancing component is noted which may be artifactual from adjacent susceptibility artifact or may represent hyperperfusion. This appears less conspicuous when compared to the prior MRI. No new or progressive disease. No acute intracranial findings. Lobulated enhancing soft tissue within the midline nasopharynx. Recommend direct inspection. * * * * * * * * ADDENDUM #1 * * * * * * * * Upon further discussion and evaluation, the previously described enhancing soft tissue in the posterior nasopharynx likely represents pooling secretions. Acid Operator: [facility] Transcribe Date/Time: Aug 30 2025 7:46A Dictated by : TEZ ROBLERO, This examination was interpreted and the report reviewed and electronically signed by: TEZ ROBLERO, on Aug 16 2025 4:11PM EST This document has been addended by: TEZ ROBLERO, on Aug 30 2025 8:14AM EST [id number] Normal [facility] Mean corpuscular hemoglobin (MCH) determinationOrdered By: Angela Rodriguez on 08-16-2025 MCH (RBC) [Entitic mass] 24.3 pg Low 27.0-32.0 [facility] Mean corpuscular hemoglobin concentration (MCHC) determinationOrdered By: Angela Rodriguez on 08-16-2025 MCHC (RBC) [Mass/Vol] 31.8 g/dL Low 32-36 [facility] Mean platelet volume determi nationOrdered By: Angela Rodriguez on 08-16-2025 Platelet mean volume (Bld) [Entitic vol] 8.9 fL 6.2-12.0 [facility] Monocyte percentageOrdered B y: Angela Rodriguez on 08-16-2025 Monocytes/100 WBC (Bld) 11.0 % High 0-10 [facility] Neutrophil percentageOrdered By: Angela Rodriguez on 08-16-2025 Neutrophils/100 WBC (Bld) 68.7 % 47-70 [facility] No Panel InformationOrdered By: Angela Rodriguez on 08-16-2025 15 U/L <38 [facility] Nucleated red blood cell per centageOrdered By: Angela Rodriguez on 08-16-2025 Nucleated RBC/100 WBC (Bld) [Ratio] 0 % 0-5 [facility] Oncology Visit Reporton 100 Oncology Visit Report Normal [facility] Phosphoruson 08-16-2025 Phosphate [Mass/Vol] 3.6 mg/dL Normal 2.7-4.5 [facility] Comment on above: Performed By: #### L 100.0100, L501.2300, L500.4050 ####[facility] [address] [place], [address] Platelet countOrdered By: Ivonne Rodriguez on 08-16-2025 Platelets (Bld) [#/Vol] 166 10*3/uL 150-450 [facility] Potassium measurement (mass/ volume)Ordered By: Angela Rodriguez on 08-16-2025 Potassium (Unsp spec) [Mass/Vol] 3.8 mmol/L 3.3-5.1 [facility] RBC Auto (Bld) [#/Vol]Ordere d By: Angela Rodriguez on 08-16-2025 RBC (Bld) [#/Vol] 5.11 10*6/uL 4.6-6.2 [facility] Serum creatinine measurement (mass/volume)Ordered By: Angela Rodriguez on 08-16-2025 Creatinine [Mass/Vol] 1.01 mg/dL 0.70-1.20 [facility] Serum globulin measurementOr dered By: Angela Rodriguez on 08-16-2025 Globulin (S) [Mass/Vol] 2.0 g/dL Low 2.2-4.2 [facility] Serum glucose measurement (m ass/volume)Ordered By: Angela Rodriguez on 08-16-2025 Glucose [Mass/Vol] 93 mg/dL 70-99 [facility] Serum or plasma alanine kong otransferase (ALT) measurementOrdered By: Angela Rodriguez on 08-16-2025 ALT [Catalytic activity/Vol] 12 U/L <47 [facility] Serum or plasma albumin deangelo urement (mass/volume)Ordered By: Angela Rodriguez on 08-16-2025 Albumin [Mass/Vol] 3.8 g/dL 3.4-4.8 [facility] Serum or plasma albumin/glob ulin mass ratioOrdered By: Angela Rodriguez on 08-16-2025 Albumin/Globulin [Mass ratio] 1.9 {ratio} 0.9-2.4 [facility] Serum or plasma alkaline alie sphatase measurementOrdered By: Angela Rodriguez on 08-16-2025 ALP [Catalytic activity/Vol] 50 U/L 40-129 [facility] Serum or plasma calcium deangelo urement (mass/volume)Ordered By: Angela Rodriguez on 08-16-2025 Calcium [Mass/Vol] 8.8 mg/dL 7.6-11.0 [facility] Serum or plasma urea nitroge n measurement (mass/volume)Ordered By: Angela Rodriguez on 08-16-2025 Urea nitrogen [Mass/Vol] 24 mg/dL High 4-19 [facility] Sodium levelOrdered By: Jackie Rodriguez on 08-16-2025 Sodium [Moles/Vol] 139 mmol/L 133-145 [facility] T4 Free Directon 08-16-2025 T4 FREE DIRECT 1.50 ng/dL High 0.76-1.46 [facility] Comment on above: Performed By: #### L 506.0400, L501.9520 ####[facility] [address] [place], [address] T4 freeOrdered By: Verónica rogers on 08-16-2025 Free T4 [Mass/Vol] 1.50 ng/dL High 0.76-1.46 [facility] TSH DL <= 0.005 mIU/L QnOrde red By: Verónica Meadows on 08-16-2025 TSH Qn 2.870 uIU/mL 0.300-4.200 [facility] [facility] Thyroid Stim Hormone (TSH)on 08-16-2025 TSH 2.870 uIU/mL Normal 0.300-4.200 [facility] Comment on above: Performed By: #### L 506.0400, L501.9520 ####[facility] [address] [place], [address] Total proteinOrdered By: Antoni apodaca Michael on 08-16-2025 Protein [Mass/Vol] 5.8 g/dL Low 5.9-8.4 [facility] White blood cell (WBC) count Ordered By: Angela Rodriguez on 08-16-2025 WBC (Bld) [#/Vol] 7.0 10*3/uL 4.4-11.0 [facility] Cardiology Visit Reporton Cardiology Visit Report Normal [facility] Absolute lymphocyte countOrd ered By: Angela Rodriguez on 07-26-2025 Lymphocytes Auto (Unsp spec) [#/Vol] 0.92 10*3/uL 0.83-4.51 [facility] Absolute neutrophil countOrd ered By: Angela Rodriguez on 07-26-2025 Neutrophils (Bld) [#/Vol] 3.6 10*3/uL 2.0-7.7 [facility] Anion gap in Serum or Plasma Ordered By: Angela Rodriguez on 07-26-2025 Anion gap [Moles/Vol] 12 mmol/L 5-15 [facility] Automated lymphocyte count a s percentage of total leukocytesOrdered By: Angela Rodriguez on 07-26-2025 Lymphocytes/100 WBC Auto (Unsp spec) 16.9 % Low 19-41 [facility] BUN/creatinine ratioOrdered By: Angela Rodriguez on 07-26-2025 Urea nitrogen/Creatinine [Mass ratio] 17.3 mg/mg 10-20 [facility] Basophil percentageOrdered B y: Angela Rodriguez on 07-26-2025 Basophils/100 WBC (Bld) 1.1 % High 0-1 [facility] Bilirubin, totalOrdered By: Angela Rodriguez on 07-26-2025 Bilirubin [Mass/Vol] 0.41 mg/dL 0.00-1.30 [facility] CBC W/Diff, Automatedon 07-10 Absolute Lymph 0.92 X10 3/uL Normal 0.83-4.51 [facility] Comment on above: Performed By: #### L 501.2300, L500.4050, L100.0100 ####[facility] [address] [place], [address] Absolute Neut 3.6 X10 3/uL Normal 2.0-7.7 [facility] Comment on above: Performed By: #### L 501.2300, L500.4050, L100.0100 ####[facility] [address] [place], [address] Basophils/100 WBC (Bld) 1.1 % High 0-1 [facility] Comment on above: Performed By: #### L 501.2300, L500.4050, L100.0100 ####[facility] [address] [place], [address] Eosinophils/100 WBC (Bld) 1.7 % Normal 0-5 [facility] Comment on above: Performed By: #### L 501.2300, L500.4050, L100.0100 ####[facility] [address] [place], [address] Erythrocyte distribution width (RBC) [Ratio] 16.3 % High 11.6-14.6 [facility] Comment on above: Performed By: #### L 501.2300, L500.4050, L100.0100 ####[facility] [address] [place], [address] Hematocrit (Bld) [Volume fraction] 34.3 % Low 40-54 [facility] Comment on above: Performed By: #### L 501.2300, L500.4050, L100.0100 ####[facility] [address] [place], [address] Hemoglobin (Bld) [Mass/Vol] 11.0 g/dL Low 13.0-16.5 [facility] Comment on above: Performed By: #### L 501.2300, L500.4050, L100.0100 ####[facility] [address] [place], [address] IG% 2.800 High 0.0-0.9 [facility] Comment on above: Result Comment: IG% - Immature Granulocytes (promyelocytes, myelocytes andmetamyelocytes) > 1% indicates that a LEFT SHIFT is Present. Performed By: #### L 501.2300, L500.4050, L100.0100 ####[facility] [address] [place], [address] Lymphocytes/100 WBC (Bld) 16.9 % Low 19-41 [facility] Comment on above: Performed By: #### L 501.2300, L500.4050, L100.0100 ####[facility] [address] [place], [address] MCH (RBC) [Entitic mass] 24.8 pg Low 27.0-32.0 [facility] Comment on above: Performed By: #### L 501.2300, L500.4050, L100.0100 ####[facility] [address] [place], [address] MCHC (RBC) [Mass/Vol] 32.1 g/dL Normal 32-36 [facility] Comment on above: Performed By: #### L 501.2300, L500.4050, L100.0100 ####[facility] [address] [place], [address] MCV (RBC) [Entitic vol] 77.4 fL Low 80-94 [facility] Comment on above: Performed By: #### L 501.2300, L500.4050, L100.0100 ####[facility] [address] [place], [address] Monocytes/100 WBC (Bld) 10.9 % High 0-10 [facility] Comment on above: Performed By: #### L 501.2300, L500.4050, L100.0100 ####[facility] [address] [place], [address] Neutrophils/100 WBC (Bld) 66.6 % Normal 47-70 [facility] Comment on above: Performed By: #### L 501.2300, L500.4050, L100.0100 ####[facility] [address] [place], [address] Nucleated RBC (Bld) [#/Vol] 0 10*3/uL Normal 0-5 [facility] Comment on above: Performed By: #### L 501.2300, L500.4050, L100.0100 ####[facility] [address] [place], [address] Platelet mean volume (Bld) [Entitic vol] 8.8 fL Normal 6.2-12.0 [facility] Comment on above: Performed By: #### L 501.2300, L500.4050, L100.0100 ####[facility] [address] [place], [address] Platelets (Bld) [#/Vol] 141 10*3/uL Low 150-450 [facility] Comment on above: Performed By: #### L 501.2300, L500.4050, L100.0100 ####[facility] [address] [place], [address] RBC (Bld) [#/Vol] 4.43 10*6/uL Low 4.6-6.2 [facility] Comment on above: Performed By: #### L 501.2300, L500.4050, L100.0100 ####[facility] [address] [place], [address] RDW SD 46.2 fl High 35.1-43.9 [facility] Comment on above: Performed By: #### L 501.2300, L500.4050, L100.0100 ####[facility] [address] [place], [address] WBC (Bld) [#/Vol] 5.4 10*3/uL Normal 4.4-11.0 [facility] Comment on above: Performed By: #### L 501.2300, L500.4050, L100.0100 ####[facility] [address] [place], [address] Carbon dioxide, total [Moles /volume] in Central venous bloodOrdered By: Angela Rodriguez on 07-26-2025 CO2 [Moles/Vol] 18.4 mmol/L Low 21.0-32.0 [facility] Chloride assayOrdered By: Ivonne Rodriguez on 07-26-2025 Chloride [Moles/Vol] 109 mmol/L High 98-108 [facility] Comprehensive Metabolic Prof ilon 07-26-2025 Albumin [Mass/Vol] 3.5 g/dL Normal 3.4-4.8 [facility] Comment on above: Performed By: #### L 501.2300, L500.4050, L100.0100 ####[facility] [address] [place], [address] Albumin/Globulin [Mass ratio] 1.8 {ratio} Normal 0.9-2.4 [facility] Comment on above: Performed By: #### L 501.2300, L500.4050, L100.0100 ####[facility] [address] [place], [address] ALK PHOS 48 U/L Normal 40-129 [facility] Comment on above: Performed By: #### L 501.2300, L500.4050, L100.0100 ####[facility] [address] [place], [address] ALT [Catalytic activity/Vol] 12 U/L Normal <=46 [facility] Comment on above: Performed By: #### L 501.2300, L500.4050, L100.0100 ####[facility] [address] [place], [address] AST [Catalytic activity/Vol] 17 U/L Normal <=37 [facility] Comment on above: Performed By: #### L 501.2300, L500.4050, L100.0100 ####[facility] [address] [place], [address] Bilirubin [Mass/Vol] 0.41 mg/dL Normal 0.00-1.30 [facility] Comment on above: Performed By: #### L 501.2300, L500.4050, L100.0100 ####[facility] [address] [place], [address] BUN/CRE 17.3 RATIO Normal 10-20 [facility] Comment on above: Performed By: #### L 501.2300, L500.4050, L100.0100 ####[facility] [address] [place], [address] Calcium [Mass/Vol] 8.5 mg/dL Normal 7.6-11.0 [facility] Comment on above: Performed By: #### L 501.2300, L500.4050, L100.0100 ####[facility] [address] [place], [address] Chloride [Moles/Vol] 109 mmol/L High 98-108 [facility] Comment on above: Performed By: #### L 501.2300, L500.4050, L100.0100 ####[facility] [address] [place], [address] CO2 [Moles/Vol] 18.4 mmol/L Low 21.0-32.0 [facility] Comment on above: Performed By: #### L 501.2300, L500.4050, L100.0100 ####[facility] [address] [place], [address] Creatinine [Mass/Vol] 0.99 mg/dL Normal 0.70-1.20 [facility] Comment on above: Performed By: #### L 501.2300, L500.4050, L100.0100 ####[facility] [address] [place], [address] ECRCL 68.04 ml/min Normal 50-250 [facility] Comment on above: Performed By: #### L 501.2300, L500.4050, L100.0100 ####[facility] [address] [place], [address] GAP 12 Normal 5-15 [facility] Comment on above: Performed By: #### L 501.2300, L500.4050, L100.0100 ####[facility] [address] [place], [address] GFR/1.73 sq M.predicted among non-blacks MDRD (S/P/Bld) [Vol rate/Area] 81 mL/min/{1.73_m2} Normal >60 [facility] Comment on above: Result Comment: mL/m in/1.73m2 CKD-EPI Creatinine Equation (2020) Performed By: #### L 501.2300, L500.4050, L100.0100 ####[facility] [address] [place], [address] Globulin (S) [Mass/Vol] 2.0 g/dL Low 2.2-4.2 [facility] Comment on above: Performed By: #### L 501.2300, L500.4050, L100.0100 ####[facility] [address] [place], [address] Glucose [Mass/Vol] 120 mg/dL High 70-99 [facility] Comment on above: Performed By: #### L 501.2300, L500.4050, L100.0100 ####[facility] [address] [place], [address] Potassium [Moles/Vol] 3.8 mmol/L Normal 3.3-5.1 [facility] Comment on above: Performed By: #### L 501.2300, L500.4050, L100.0100 ####[facility] [address] [place], [address] Sodium [Moles/Vol] 139 mmol/L Normal 133-145 [facility] Comment on above: Performed By: #### L 501.2300, L500.4050, L100.0100 ####[facility] [address] [place], [address] T PROT 5.5 g/dL Low 5.9-8.4 [facility] Comment on above: Performed By: #### L 501.2300, L500.4050, L100.0100 ####[facility] [address] [place], [address] Urea nitrogen [Mass/Vol] 17 mg/dL Normal 4-19 [facility] Comment on above: Performed By: #### L 501.2300, L500.4050, L100.0100 ####[facility] [address] [place], [address] Eosinophil percentageOrdered By: Angela Rodriguez on 07-26-2025 Eosinophils/100 WBC (Bld) 1.7 % 0-5 [facility] Erythrocyte distribution wid th ratioOrdered By: [facility] on 07-26-2025 Erythrocyte distribution width (RBC) [Ratio] 16.3 % High 11.6-14.6 [facility] Erythrocyte distribution wid th standard deviationOrdered By: [facility] on 07-26-2025 Erythrocyte distribution width (RBC) [Ratio] 46.2 fl High 35.1-43.9 [facility] Glomerular filtration rate ( GFR) estimation/1.73 sq m using serum, plasma, or whole bOrdered By: [facility] on 07-26-2025 GFR/1.73 sq M.predicted among non-blacks MDRD (S/P/Bld) [Vol rate/Area] 81 mL/min/{1.73_m2} >60 [facility] Comment on above: mL/min/1.73m2 CKD-EP I Creatinine Equation (2020) Hematocrit Auto (Bld) [Volum e fraction]Ordered By: [facility] Michael on 07-26-2025 Hematocrit (Bld) [Volume fraction] 34.3 % Low 40-54 [facility] Hemoglobin measurementOrdere d By: [facility] Michael on 07-26-2025 Hemoglobin (Bld) [Mass/Vol] 11.0 g/dL Low 13.0-16.5 [facility] Immature granulocytes/100 WB C Auto (Bld)Ordered By: [facility] on 07-26-2025 Immature granulocytes/100 WBC (Bld) 2.800 % High 0.0-0.9 [facility] Comment on above: IG% - Immature Granu locytes (promyelocytes, myelocytes and metamyelocytes) > 1% indicates that a LEFT SHIFT is Present. Laboratory - Chemistry and C hemistry - challengeOrdered By: [facility] Michael on 07-26-2025 AST [Catalytic activity/Vol] 17 U/L <38 [facility] MCV (mean corpuscular volume ) determinationOrdered By: [facility] on 07-26-2025 MCV (RBC) [Entitic vol] 77.4 fL Low 80-94 [facility] Magnesiumon 07-26-2025 Magnesium [Mass/Vol] 2.0 mg/dL Normal 1.5-2.2 [facility] Comment on above: Performed By: #### L 501.5200 ####[facility] [address] [place], [place], [id number] Magnesium measurement (mass/ volume)Ordered By: Angela Rodriguez on 07-26-2025 Magnesium (Unsp spec) [Mass/Vol] 2.0 mg/dL 1.5-2.2 [facility] Mean corpuscular hemoglobin (MCH) determinationOrdered By: Angela Rodriguez on 07-26-2025 MCH (RBC) [Entitic mass] 24.8 pg Low 27.0-32.0 [facility] Mean corpuscular hemoglobin concentration (MCHC) determinationOrdered By: Angela Rodriguez on 07-26-2025 MCHC (RBC) [Mass/Vol] 32.1 g/dL 32-36 [facility] Mean platelet volume determi nationOrdered By: Angela Rodriguez on 07-26-2025 Platelet mean volume (Bld) [Entitic vol] 8.8 fL 6.2-12.0 [facility] Monocyte percentageOrdered B y: Angela Rodriguez on 07-26-2025 Monocytes/100 WBC (Bld) 10.9 % High 0-10 [facility] Neutrophil percentageOrdered By: [facility] on 07-26-2025 Neutrophils/100 WBC (Bld) 66.6 % 47-70 [facility] Nucleated red blood cell per centageOrdered By: Angela Rodriguez on 07-26-2025 Nucleated RBC/100 WBC (Bld) [Ratio] 0 % 0-5 [facility] Oncology Visit Reporton 07-10 Oncology Visit Report Normal [facility] Phosphoruson 07-26-2025 Phosphate [Mass/Vol] 3.3 mg/dL Normal 2.7-4.5 [facility] Comment on above: Performed By: #### L 501.2300, L500.4050, L100.0100 ####[facility] [address] [place], [place], [id number] Platelet countOrdered By: Ivonne Rodriguez on 07-26-2025 Platelets (Bld) [#/Vol] 141 10*3/uL Low 150-450 [facility] Potassium measurement (mass/ volume)Ordered By: Angela Rodriguez on 07-26-2025 Potassium (Unsp spec) [Mass/Vol] 3.8 mmol/L 3.3-5.1 [facility] RBC Auto (Bld) [#/Vol]Ordere d By: Angela Rodriguez on 07-26-2025 RBC (Bld) [#/Vol] 4.43 10*6/uL Low 4.6-6.2 [facility] Serum creatinine measurement (mass/volume)Ordered By: Angela Rodriguez on 07-26-2025 Creatinine [Mass/Vol] 0.99 mg/dL 0.70-1.20 [facility] Serum globulin measurementOr dered By: Angela Rodriguez on 07-26-2025 Globulin (S) [Mass/Vol] 2.0 g/dL Low 2.2-4.2 [facility] Serum glucose measurement (m ass/volume)Ordered By: Angela Rodriguez on 07-26-2025 Glucose [Mass/Vol] 120 mg/dL High 70-99 [facility] Serum or plasma alanine kong otransferase (ALT) measurementOrdered By: Angela Rodriguez on 07-26-2025 ALT [Catalytic activity/Vol] 12 U/L <47 [facility] Serum or plasma albumin deangelo urement (mass/volume)Ordered By: Angela Rodriguez on 07-26-2025 Albumin [Mass/Vol] 3.5 g/dL 3.4-4.8 [facility] Serum or plasma albumin/glob ulin mass ratioOrdered By: Angela Rodriguez on 07-26-2025 Albumin/Globulin [Mass ratio] 1.8 {ratio} 0.9-2.4 [facility] Serum or plasma alkaline alie sphatase measurementOrdered By: Angela Rodriguez on 07-26-2025 ALP [Catalytic activity/Vol] 48 U/L 40-129 [facility] Serum or plasma calcium deangelo urement (mass/volume)Ordered By: Angela Rodriguez on 07-26-2025 Calcium [Mass/Vol] 8.5 mg/dL 7.6-11.0 [facility] Serum or plasma urea nitroge n measurement (mass/volume)Ordered By: Angela Michael on 07-26-2025 Urea nitrogen [Mass/Vol] 17 mg/dL 4-19 [facility] Sodium levelOrdered By: Jackie [facility] Michael on 07-26-2025 Sodium [Moles/Vol] 139 mmol/L 133-145 [facility] Total proteinOrdered By: Antoni apodaca Michael on 07-26-2025 Protein [Mass/Vol] 5.5 g/dL Low 5.9-8.4 [facility] White blood cell (WBC) count Ordered By: Angela Michael on 07-26-2025 WBC (Bld) [#/Vol] 5.4 10*3/uL 4.4-11.0 [facility] Absolute lymphocyte countOrd ered By: Angela Michael on 07-05-2025 Lymphocytes Auto (Unsp spec) [#/Vol] 0.79 10*3/uL Low 0.83-4.51 [facility] Anion gap in Serum or Plasma Ordered By: Angela Michael on 07-05-2025 Anion gap [Moles/Vol] 12 mmol/L 5-15 [facility] Automated lymphocyte count a s percentage of total leukocytesOrdered By: Angela Michael on 07-05-2025 Lymphocytes/100 WBC Auto (Unsp spec) 8.2 % Low 19-41 [facility] BUN/creatinine ratioOrdered By: [facility] on 07-05-2025 Urea nitrogen/Creatinine [Mass ratio] 21.1 mg/mg High 10-20 [facility] Basophil percentageOrdered B y: Angela Michael on 07-05-2025 Basophils/100 WBC (Bld) 0.6 % 0-1 [facility] Bilirubin, totalOrdered By: [facility] on 07-05-2025 Bilirubin [Mass/Vol] 0.42 mg/dL 0.00-1.30 [facility] CBC W/Diff, Automatedon 06-10 Absolute Lymph 0.79 X10 3/uL Low 0.83-4.51 [facility] Comment on above: Performed By: #### L 500.4050, L501.2300, L100.0100 ####[facility] [address] [place], [address] Absolute Neut 8.0 X10 3/uL High 2.0-7.7 [facility] Comment on above: Performed By: #### L 500.4050, L501.2300, L100.0100 ####[facility] [address] [place], [address] Basophils/100 WBC (Bld) 0.6 % Normal 0-1 [facility] Comment on above: Performed By: #### L 500.4050, L501.2300, L100.0100 ####[facility] [address] [place], [address] Eosinophils/100 WBC (Bld) 0.7 % Normal 0-5 [facility] Comment on above: Performed By: #### L 500.4050, L501.2300, L100.0100 ####[facility] [address] [place], [address] Erythrocyte distribution width (RBC) [Ratio] 17.0 % High 11.6-14.6 [facility] Comment on above: Performed By: #### L 500.4050, L501.2300, L100.0100 ####[facility] [address] [place], [address] Hematocrit (Bld) [Volume fraction] 38.6 % Low 40-54 [facility] Comment on above: Performed By: #### L 500.4050, L501.2300, L100.0100 ####[facility] [address] [place], [address] Hemoglobin (Bld) [Mass/Vol] 12.5 g/dL Low 13.0-16.5 [facility] Comment on above: Performed By: #### L 500.4050, L501.2300, L100.0100 ####[facility] [address] [place], [address] IG% 1.800 High 0.0-0.9 [facility] Comment on above: Result Comment: IG% - Immature Granulocytes (promyelocytes, myelocytes andmetamyelocytes) > 1% indicates that a LEFT SHIFT is Present. Performed By: #### L 500.4050, L501.2300, L100.0100 ####[facility] [address] [place], [address] Lymphocytes/100 WBC (Bld) 8.2 % Low 19-41 [facility] Comment on above: Performed By: #### L 500.4050, L501.2300, L100.0100 ####[facility] [address] [place], [address] MCH (RBC) [Entitic mass] 25.0 pg Low 27.0-32.0 [facility] Comment on above: Performed By: #### L 500.4050, L501.2300, L100.0100 ####[facility] [address] [place], [address] MCHC (RBC) [Mass/Vol] 32.4 g/dL Normal 32-36 [facility] Comment on above: Performed By: #### L 500.4050, L501.2300, L100.0100 ####[facility] [address] [place], [address] MCV (RBC) [Entitic vol] 77.2 fL Low 80-94 [facility] Comment on above: Performed By: #### L 500.4050, L501.2300, L100.0100 ####[facility] [address] [place], [address] Monocytes/100 WBC (Bld) 6.3 % Normal 0-10 [facility] Comment on above: Performed By: #### L 500.4050, L501.2300, L100.0100 ####[facility] [address] [place], [address] Neutrophils/100 WBC (Bld) 82.4 % High 47-70 [facility] Comment on above: Performed By: #### L 500.4050, L501.2300, L100.0100 ####[facility] [address] [place], [address] Nucleated RBC (Bld) [#/Vol] 0 10*3/uL Normal 0-5 [facility] Comment on above: Performed By: #### L 500.4050, L501.2300, L100.0100 ####[facility] [address] [place], [address] Platelet mean volume (Bld) [Entitic vol] 9.0 fL Normal 6.2-12.0 [facility] Comment on above: Performed By: #### L 500.4050, L501.2300, L100.0100 ####[facility] [facility] [address] [place], [address] Platelets (Bld) [#/Vol] 173 10*3/uL Normal 150-450 [facility] Comment on above: Performed By: #### L 500.4050, L501.2300, L100.0100 ####[facility] [address] [place], [address] RBC (Bld) [#/Vol] 5.00 10*6/uL Normal 4.6-6.2 [facility] Comment on above: Performed By: #### L 500.4050, L501.2300, L100.0100 ####[facility] [address] [place], [address] RDW SD 47.4 fl High 35.1-43.9 [facility] Comment on above: Performed By: #### L 500.4050, L501.2300, L100.0100 ####[facility] [address] [place], [address] WBC (Bld) [#/Vol] 9.7 10*3/uL Normal 4.4-11.0 [facility] Comment on above: Performed By: #### L 500.4050, L501.2300, L100.0100 ####[facility] [address] [place], [address] Carbon dioxide, total [Moles /volume] in Central venous bloodOrdered By: Angela Rodriguez on 07-05-2025 CO2 [Moles/Vol] 20.3 mmol/L Low 21.0-32.0 [facility] Chloride assayOrdered By: Ivonne Rodriguez on 07-05-2025 Chloride [Moles/Vol] 105 mmol/L 98-108 [facility] Comprehensive Metabolic Prof ilon 07-05-2025 Albumin [Mass/Vol] 4.0 g/dL Normal 3.4-4.8 [facility] Comment on above: Performed By: #### L 500.4050, L501.2300, L100.0100 ####[facility] [address] [place], [address] Albumin/Globulin [Mass ratio] 2.0 {ratio} Normal 0.9-2.4 [facility] Comment on above: Performed By: #### L 500.4050, L501.2300, L100.0100 ####[facility] [address] [place], [address] ALK PHOS 49 U/L Normal 40-129 [facility] Comment on above: Performed By: #### L 500.4050, L501.2300, L100.0100 ####[facility] [address] [place], [address] ALT [Catalytic activity/Vol] 17 U/L Normal <=46 [facility] Comment on above: Performed By: #### L 500.4050, L501.2300, L100.0100 ####[facility] [address] [place], [address] AST [Catalytic activity/Vol] 19 U/L Normal <=37 [facility] Comment on above: Performed By: #### L 500.4050, L501.2300, L100.0100 ####[facility] [address] [place], [address] Bilirubin [Mass/Vol] 0.42 mg/dL Normal 0.00-1.30 [facility] Comment on above: Performed By: #### L 500.4050, L501.2300, L100.0100 ####[facility] [address] [place], [address] BUN/CRE 21.1 RATIO High 10-20 [facility] Comment on above: Performed By: #### L 500.4050, L501.2300, L100.0100 ####[facility] [address] [place], [address] Calcium [Mass/Vol] 9.2 mg/dL Normal 7.6-11.0 [facility] Comment on above: Performed By: #### L 500.4050, L501.2300, L100.0100 ####[facility] [address] [place], [address] Chloride [Moles/Vol] 105 mmol/L Normal 98-108 [facility] Comment on above: Performed By: #### L 500.4050, L501.2300, L100.0100 ####[facility] [address] [place], [address] CO2 [Moles/Vol] 20.3 mmol/L Low 21.0-32.0 [facility] Comment on above: Performed By: #### L 500.4050, L501.2300, L100.0100 ####[facility] [address] [place], [address] Creatinine [Mass/Vol] 1.10 mg/dL Normal 0.70-1.20 [facility] Comment on above: Performed By: #### L 500.4050, L501.2300, L100.0100 ####[facility] [address] [place], [address] ECRCL 60.76 ml/min Normal 50-250 [facility] Comment on above: Performed By: #### L 500.4050, L501.2300, L100.0100 ####[facility] [address] [place], [address] GAP 12 Normal 5-15 [facility] Comment on above: Performed By: #### L 500.4050, L501.2300, L100.0100 ####[facility] [address] [place], [address] GFR/1.73 sq M.predicted among non-blacks MDRD (S/P/Bld) [Vol rate/Area] 72 mL/min/{1.73_m2} Normal >60 [facility] Comment on above: Result Comment: mL/m in/1.73m2 CKD-EPI Creatinine Equation (2020) Performed By: #### L 500.4050, L501.2300, L100.0100 ####[facility] [address] [place], [address] Globulin (S) [Mass/Vol] 2.1 g/dL Low 2.2-4.2 [facility] Comment on above: Performed By: #### L 500.4050, L501.2300, L100.0100 ####[facility] [address] [place], [address] Glucose [Mass/Vol] 107 mg/dL High 70-99 [facility] Comment on above: Performed By: #### L 500.4050, L501.2300, L100.0100 ####[facility] [address] [place], [address] Potassium [Moles/Vol] 4.1 mmol/L Normal 3.3-5.1 [facility] Comment on above: Performed By: #### L 500.4050, L501.2300, L100.0100 ####[facility] [address] [place], [address] Sodium [Moles/Vol] 138 mmol/L Normal 133-145 [facility] Comment on above: Performed By: #### L 500.4050, L501.2300, L100.0100 ####[facility] [address] [place], [address] T PROT 6.1 g/dL Normal 5.9-8.4 [facility] Comment on above: Performed By: #### L 500.4050, L501.2300, L100.0100 ####[facility] [address] [place], [address] Urea nitrogen [Mass/Vol] 23 mg/dL High 4-19 [facility] Comment on above: Performed By: #### L 500.4050, L501.2300, L100.0100 ####[facility] [address] [place], [address] Eosinophil percentageOrdered By: Angela Rodriguez on 07-05-2025 Eosinophils/100 WBC (Bld) 0.7 % 0-5 [facility] Erythrocyte distribution wid th ratioOrdered By: Angela Rodriguez on 07-05-2025 Erythrocyte distribution width (RBC) [Ratio] 17.0 % High 11.6-14.6 [facility] Erythrocyte distribution wid th standard deviationOrdered By: Angela Rodriguez on 07-05-2025 Erythrocyte distribution width (RBC) [Ratio] 47.4 fl High 35.1-43.9 [facility] Glomerular filtration rate ( GFR) estimation/1.73 sq m using serum, plasma, or whole bOrdered By: Angela Rodriguez on 07-05-2025 GFR/1.73 sq M.predicted among non-blacks MDRD (S/P/Bld) [Vol rate/Area] 72 mL/min/{1.73_m2} >60 [facility] Hematocrit Auto (Bld) [Volum e fraction]Ordered By: Angela Rodriguez on 07-05-2025 Hematocrit (Bld) [Volume fraction] 38.6 % Low 40-54 [facility] Hemoglobin measurementOrdere d By: Angela Rodriguez on 07-05-2025 Hemoglobin (Bld) [Mass/Vol] 12.5 g/dL Low 13.0-16.5 [facility] Immature granulocytes/100 WB C Auto (Bld)Ordered By: [facility] on 07-05-2025 Immature granulocytes/100 WBC (Bld) 1.800 % High 0.0-0.9 [facility] MCV (mean corpuscular volume ) determinationOrdered By: [facility] Michael on 07-05-2025 MCV (RBC) [Entitic vol] 77.2 fL Low 80-94 [facility] Mean corpuscular hemoglobin (MCH) determinationOrdered By: [facility] Michael on 07-05-2025 MCH (RBC) [Entitic mass] 25.0 pg Low 27.0-32.0 [facility] Monocyte percentageOrdered B y: Angela Rodriguez on 07-05-2025 Monocytes/100 WBC (Bld) 6.3 % 0-10 [facility] Neutrophil percentageOrdered By: [facility] Michael on 07-05-2025 Neutrophils/100 WBC (Bld) 82.4 % High 47-70 [facility] No Panel InformationOrdered By: [facility] Michael on 07-05-2025 19 U/L <38 [facility] Oncology Visit Reporton 06-10 Oncology Visit Report Normal [facility] Phosphoruson 07-05-2025 Phosphate [Mass/Vol] 3.7 mg/dL Normal 2.7-4.5 [facility] Comment on above: Performed By: #### L 500.4050, L501.2300, L100.0100 ####[facility] [address] [place], [address] Platelet countOrdered By: Ivonne Rodriguez on 07-05-2025 Platelets (Bld) [#/Vol] 173 10*3/uL 150-450 [facility] Potassium measurement (mass/ volume)Ordered By: Angela Rodriguez on 07-05-2025 Potassium (Unsp spec) [Mass/Vol] 4.1 mmol/L 3.3-5.1 [facility] RBC Auto (Bld) [#/Vol]Ordere d By: Angela Rodriguez on 07-05-2025 RBC (Bld) [#/Vol] 5.00 10*6/uL 4.6-6.2 [facility] Serum creatinine measurement (mass/volume)Ordered By: Angela Rodriguez on 07-05-2025 Creatinine [Mass/Vol] 1.10 mg/dL 0.70-1.20 [facility] Serum globulin measurementOr dered By: Angela Rodriguez on 07-05-2025 Globulin (S) [Mass/Vol] 2.1 g/dL Low 2.2-4.2 [facility] Serum glucose measurement (m ass/volume)Ordered By: Angela Rodriguez on 07-05-2025 Glucose [Mass/Vol] 107 mg/dL High 70-99 [facility] Serum or plasma alanine kong otransferase (ALT) measurementOrdered By: Angela Rodriguez on 07-05-2025 ALT [Catalytic activity/Vol] 17 U/L <47 [facility] Serum or plasma albumin deangelo urement (mass/volume)Ordered By: Angela Rodriguez on 07-05-2025 Albumin [Mass/Vol] 4.0 g/dL 3.4-4.8 [facility] Serum or plasma albumin/glob ulin mass ratioOrdered By: Angela Rodriguez on 07-05-2025 Albumin/Globulin [Mass ratio] 2.0 {ratio} 0.9-2.4 [facility] Serum or plasma alkaline alie sphatase measurementOrdered By: Angela Rodriguez on 07-05-2025 ALP [Catalytic activity/Vol] 49 U/L 40-129 [facility] Serum or plasma calcium deangelo urement (mass/volume)Ordered By: Angela Rodriguez on 07-05-2025 Calcium [Mass/Vol] 9.2 mg/dL 7.6-11.0 [facility] Serum or plasma urea nitroge n measurement (mass/volume)Ordered By: Angela Rodriguez on 07-05-2025 Urea nitrogen [Mass/Vol] 23 mg/dL High 4-19 [facility] Sodium levelOrdered By: Jackie tonny Michael on 07-05-2025 Sodium [Moles/Vol] 138 mmol/L 133-145 [facility] Total proteinOrdered By: Antoni Rodriguez on 07-05-2025 Protein [Mass/Vol] 6.1 g/dL 5.9-8.4 [facility] White blood cell (WBC) count Ordered By: Angela Rodriguez on 07-05-2025 WBC (Bld) [#/Vol] 9.7 10*3/uL 4.4-11.0 [facility] Gastroenterology Visit Repor ton 07-04-2025 Gastroenterology Visit Report Normal [facility] CT Chest, Abd, Pel w/Contras ton 06-28-2025 CT Chest, Abd, Pel w/Contrast Normal [facility] Absolute lymphocyte countOrd ered By: Lj Piña on 06-15-2025 Lymphocytes Auto (Unsp spec) [#/Vol] 0.98 10*3/uL 0.83-4.51 [facility] Absolute neutrophil countOrd ered By: Lj Piña on 06-15-2025 Neutrophils (Bld) [#/Vol] 4.6 10*3/uL 2.0-7.7 [facility] Anion gap in Serum or Plasma Ordered By: Lj Piña on 06-15-2025 Anion gap [Moles/Vol] 12 mmol/L 5-15 [facility] Automated lymphocyte count a s percentage of total leukocytesOrdered By: Lj Piña on 06-15-2025 Lymphocytes/100 WBC Auto (Unsp spec) 15.1 % Low 19-41 [facility] BUN/creatinine ratioOrdered By: Lj Piña on 06-15-2025 Urea nitrogen/Creatinine [Mass ratio] 22.8 mg/mg High 10-20 [facility] Basophil percentageOrdered B y: Lj Piña on 06-15-2025 Basophils/100 WBC (Bld) 0.6 % 0-1 [facility] Bilirubin, totalOrdered By: Lj Piña on 06-15-2025 Bilirubin [Mass/Vol] 0.38 mg/dL 0.00-1.30 [facility] CBC W/Diff, Automatedon 08 Absolute Lymph 0.98 X10 3/uL Normal 0.83-4.51 [facility] Comment on above: Performed By: #### L 501.2300, L100.0100, L500.4050 ####[facility] [address] [place], [address] Absolute Neut 4.6 X10 3/uL Normal 2.0-7.7 [facility] Comment on above: Performed By: #### L 501.2300, L100.0100, L500.4050 ####[facility] [address] [place], [address] Basophils/100 WBC (Bld) 0.6 % Normal 0-1 [facility] Comment on above: Performed By: #### L 501.2300, L100.0100, L500.4050 ####[facility] [address] [place], [address] Eosinophils/100 WBC (Bld) 1.4 % Normal 0-5 [facility] Comment on above: Performed By: #### L 501.2300, L100.0100, L500.4050 ####[facility] [address] [place], [address] Erythrocyte distribution width (RBC) [Ratio] 17.9 % High 11.6-14.6 [facility] Comment on above: Performed By: #### L 501.2300, L100.0100, L500.4050 ####[facility] [address] [place], [address] Hematocrit (Bld) [Volume fraction] 38.7 % Low 40-54 [facility] Comment on above: Performed By: #### L 501.2300, L100.0100, L500.4050 ####[facility] [address] [place], [address] Hemoglobin (Bld) [Mass/Vol] 12.4 g/dL Low 13.0-16.5 [facility] Comment on above: Performed By: #### L 501.2300, L100.0100, L500.4050 ####[facility] [address] [place], [address] IG% 2.200 High 0.0-0.9 [facility] Comment on above: Result Comment: IG% - Immature Granulocytes (promyelocytes, myelocytes andmetamyelocytes) > 1% indicates that a LEFT SHIFT is Present. Performed By: #### L 501.2300, L100.0100, L500.4050 ####[facility] [address] [place], [address] Lymphocytes/100 WBC (Bld) 15.1 % Low 19-41 [facility] Comment on above: Performed By: #### L 501.2300, L100.0100, L500.4050 ####[facility] [address] [place], [address] MCH (RBC) [Entitic mass] 24.8 pg Low 27.0-32.0 [facility] Comment on above: Performed By: #### L 501.2300, L100.0100, L500.4050 ####[facility] [address] [place], [address] MCHC (RBC) [Mass/Vol] 32.0 g/dL Normal 32-36 [facility] Comment on above: Performed By: #### L 501.2300, L100.0100, L500.4050 ####[facility] [address] [place], [address] MCV (RBC) [Entitic vol] 77.4 fL Low 80-94 [facility] Comment on above: Performed By: #### L 501.2300, L100.0100, L500.4050 ####[facility] [address] [place], [address] Monocytes/100 WBC (Bld) 9.7 % Normal 0-10 [facility] Comment on above: Performed By: #### L 501.2300, L100.0100, L500.4050 ####[facility] [address] [place], [address] Neutrophils/100 WBC (Bld) 71.0 % High 47-70 [facility] Comment on above: Performed By: #### L 501.2300, L100.0100, L500.4050 ####[facility] [address] [place], [address] Nucleated RBC (Bld) [#/Vol] 0 10*3/uL Normal 0-5 [facility] Comment on above: Performed By: #### L 501.2300, L100.0100, L500.4050 ####[facility] [address] [place], [address] Platelet mean volume (Bld) [Entitic vol] 9.1 fL Normal 6.2-12.0 [facility] Comment on above: Performed By: #### L 501.2300, L100.0100, L500.4050 ####[facility] [address] [place], [address] Platelets (Bld) [#/Vol] 142 10*3/uL Low 150-450 [facility] Comment on above: Performed By: #### L 501.2300, L100.0100, L500.4050 ####[facility] [address] [place], [address] RBC (Bld) [#/Vol] 5.00 10*6/uL Normal 4.6-6.2 [facility] Comment on above: Performed By: #### L 501.2300, L100.0100, L500.4050 ####[facility] [address] [place], [address] RDW SD 49.7 fl High 35.1-43.9 [facility] Comment on above: Performed By: #### L 501.2300, L100.0100, L500.4050 ####[facility] [address] [place], [address] WBC (Bld) [#/Vol] 6.5 10*3/uL Normal 4.4-11.0 [facility] Comment on above: Performed By: #### L 501.2300, L100.0100, L500.4050 ####[facility] [address] [place], [address] Carbon dioxide, total [Moles /volume] in Central venous bloodOrdered By: Lj Piña on 06-15-2025 CO2 [Moles/Vol] 19.3 mmol/L Low 21.0-32.0 [facility] Chloride assayOrdered By: Bridgett Piña on 06-15-2025 Chloride [Moles/Vol] 108 mmol/L 98-108 [facility] Comprehensive Metabolic Prof ilon 06-15-2025 Albumin [Mass/Vol] 4.0 g/dL Normal 3.4-4.8 [facility] Comment on above: Performed By: #### L 501.2300, L100.0100, L500.4050 ####[facility] [address] [place], [address] Albumin/Globulin [Mass ratio] 2.2 {ratio} Normal 0.9-2.4 [facility] Comment on above: Performed By: #### L 501.2300, L100.0100, L500.4050 ####[facility] [address] [place], [address] ALK PHOS 49 U/L Normal 40-129 [facility] Comment on above: Performed By: #### L 501.2300, L100.0100, L500.4050 ####[facility] [address] [place], [address] ALT [Catalytic activity/Vol] 15 U/L Normal <=46 [facility] Comment on above: Performed By: #### L 501.2300, L100.0100, L500.4050 ####[facility] [address] [place], [address] AST [Catalytic activity/Vol] 16 U/L Normal <=37 [facility] Comment on above: Performed By: #### L 501.2300, L100.0100, L500.4050 ####[facility] [address] [place], [address] Bilirubin [Mass/Vol] 0.38 mg/dL Normal 0.00-1.30 [facility] Comment on above: Performed By: #### L 501.2300, L100.0100, L500.4050 ####[facility] [address] [place], [address] BUN/CRE 22.8 RATIO High 10-20 [facility] Comment on above: Performed By: #### L 501.2300, L100.0100, L500.4050 ####[facility] [address] [place], [address] Calcium [Mass/Vol] 8.8 mg/dL Normal 7.6-11.0 [facility] Comment on above: Performed By: #### L 501.2300, L100.0100, L500.4050 ####[facility] [address] [place], [address] Chloride [Moles/Vol] 108 mmol/L Normal 98-108 [facility] Comment on above: Performed By: #### L 501.2300, L100.0100, L500.4050 ####[facility] [address] [place], [address] CO2 [Moles/Vol] 19.3 mmol/L Low 21.0-32.0 [facility] Comment on above: Performed By: #### L 501.2300, L100.0100, L500.4050 ####[facility] [address] [place], [address] Creatinine [Mass/Vol] 0.94 mg/dL Normal 0.70-1.20 [facility] Comment on above: Performed By: #### L 501.2300, L100.0100, L500.4050 ####[facility] [address] [place], [address] ECRCL 70.19 ml/min Normal 50-250 [facility] Comment on above: Performed By: #### L 501.2300, L100.0100, L500.4050 ####[facility] [address] [place], [address] GAP 12 Normal 5-15 [facility] Comment on above: Performed By: #### L 501.2300, L100.0100, L500.4050 ####[facility] [address] [place], [address] GFR/1.73 sq M.predicted among non-blacks MDRD (S/P/Bld) [Vol rate/Area] 87 mL/min/{1.73_m2} Normal >60 [facility] Comment on above: Result Comment: mL/m in/1.73m2 CKD-EPI Creatinine Equation (2020) Performed By: #### L 501.2300, L100.0100, L500.4050 ####[facility] [address] [place], [address] Globulin (S) [Mass/Vol] 1.8 g/dL Low 2.2-4.2 [facility] Comment on above: Performed By: #### L 501.2300, L100.0100, L500.4050 ####[facility] [address] [place], [address] Glucose [Mass/Vol] 96 mg/dL Normal 70-99 [facility] Comment on above: Performed By: #### L 501.2300, L100.0100, L500.4050 ####[facility] [address] [place], [address] Potassium [Moles/Vol] 3.9 mmol/L Normal 3.3-5.1 [facility] Comment on above: Performed By: #### L 501.2300, L100.0100, L500.4050 ####[facility] [address] [place], [address] Sodium [Moles/Vol] 140 mmol/L Normal 133-145 [facility] Comment on above: Performed By: #### L 501.2300, L100.0100, L500.4050 ####[facility] [address] [place], [address] T PROT 5.9 g/dL Normal 5.9-8.4 [facility] Comment on above: Performed By: #### L 501.2300, L100.0100, L500.4050 ####[facility] [address] [place], [address] Urea nitrogen [Mass/Vol] 21 mg/dL High 4-19 [facility] Comment on above: Performed By: #### L 501.2300, L100.0100, L500.4050 ####[facility] [address] [place], [place], [id number] Eosinophil percentageOrdered By: Lj Piña on 06-15-2025 Eosinophils/100 WBC (Bld) 1.4 % 0-5 [facility] Erythrocyte distribution wid th ratioOrdered By: Lj Piña on 06-15-2025 Erythrocyte distribution width (RBC) [Ratio] 17.9 % High 11.6-14.6 [facility] Erythrocyte distribution wid th standard deviationOrdered By: Lj Piña on 06-15-2025 Erythrocyte distribution width (RBC) [Ratio] 49.7 fl High 35.1-43.9 [facility] Ferritinon 06-15-2025 Ferritin [Mass/Vol] 130 ng/mL Normal 37-417 [facility] Comment on above: Performed By: #### L 509.6001, L503.6030, L501.9520, L503.6550, L506.0400, L501.5200 ####[facility] [address] [place], [address] Glomerular filtration rate ( GFR) estimation/1.73 sq m using serum, plasma, or whole bOrdered By: Lj Piña on 06-15-2025 GFR/1.73 sq M.predicted among non-blacks MDRD (S/P/Bld) [Vol rate/Area] 87 mL/min/{1.73_m2} >60 [facility] Comment on above: mL/min/1.73m2 CKD-EP I Creatinine Equation (2020) Hematocrit Auto (Bld) [Volum e fraction]Ordered By: Lj Piña on 06-15-2025 Hematocrit (Bld) [Volume fraction] 38.7 % Low 40-54 [facility] Hemoglobin measurementOrdere d By: Lj Piña on 06-15-2025 Hemoglobin (Bld) [Mass/Vol] 12.4 g/dL Low 13.0-16.5 [facility] Immature granulocytes/100 WB C Auto (Bld)Ordered By: Lj Piña on 06-15-2025 Immature granulocytes/100 WBC (Bld) 2.200 % High 0.0-0.9 [facility] Comment on above: IG% - Immature Granu locytes (promyelocytes, myelocytes and metamyelocytes) > 1% indicates that a LEFT SHIFT is Present. Iron measurement (mass/mass) Ordered By: Angela Rodriguez on 06-15-2025 Iron (Unsp spec) [Mass/Mass] 42 ug/dL Low 65-175 [facility] Iron+Iron Binding Capacityon 06-15-2025 Iron [Mass/Vol] 42 ug/dL Low 65-175 [facility] Comment on above: Performed By: #### L 509.6001, L503.6030, L501.9520, L503.6550, L506.0400, L501.5200 ####[facility] [address] [facility] [address] IRON SATURATION 14.0 Normal 9-55 [facility] Comment on above: Performed By: #### L 509.6001, L503.6030, L501.9520, L503.6550, L506.0400, L501.5200 ####[facility] [address] [place], [address] TIBC 293 ug/dL Normal 250-450 [facility] Comment on above: Performed By: #### L 509.6001, L503.6030, L501.9520, L503.6550, L506.0400, L501.5200 ####[facility] [address] [facility] [address] UIBC 251 ug/dL Normal 228-428 [facility] Comment on above: Performed By: #### L 509.6001, L503.6030, L501.9520, L503.6550, L506.0400, L501.5200 ####[facility] [address] [place], [address] L509.6001on 06-15-2025 CORTISOL < 0.11 Low 6.02-18.40 [facility] Comment on above: Performed By: #### L 509.6001, L503.6030, L501.9520, L503.6550, L506.0400, L501.5200 ####[facility] [address] [place], [place], [address] Laboratory - Chemistry and C hemistry - challengeOrdered By: Lj Piña on 06-15-2025 AST [Catalytic activity/Vol] 16 U/L <38 [facility] MCV (mean corpuscular volume ) determinationOrdered By: Lj Piña on 06-15-2025 MCV (RBC) [Entitic vol] 77.4 fL Low 80-94 [facility] Magnesiumon 06-15-2025 Magnesium [Mass/Vol] 2.2 mg/dL Normal 1.5-2.2 [facility] Comment on above: Performed By: #### L 509.6001, L503.6030, L501.9520, L503.6550, L506.0400, L501.5200 ####[facility] [address] [place], [place], [address] Magnesium measurement (mass/ volume)Ordered By: Angela Rodriguez on 06-15-2025 Magnesium (Unsp spec) [Mass/Vol] 2.2 mg/dL 1.5-2.2 [facility] Mean corpuscular hemoglobin (MCH) determinationOrdered By: Lj Piña on 06-15-2025 MCH (RBC) [Entitic mass] 24.8 pg Low 27.0-32.0 [facility] Mean corpuscular hemoglobin concentration (MCHC) determinationOrdered By: Lj Piña on 06-15-2025 MCHC (RBC) [Mass/Vol] 32.0 g/dL 32-36 [facility] Mean platelet volume determi nationOrdered By: Lj Piña on 06-15-2025 Platelet mean volume (Bld) [Entitic vol] 9.1 fL 6.2-12.0 [facility] Monocyte percentageOrdered B y: Lj Piña on 06-15-2025 Monocytes/100 WBC (Bld) 9.7 % 0-10 [facility] Neutrophil percentageOrdered By: Lj Piña on 06-15-2025 Neutrophils/100 WBC (Bld) 71.0 % High 47-70 [facility] No Panel InformationOrdered By: Angela Rodriguez on 06-15-2025 Unsaturated Iron Binding Capacity 251 ug/dL 228-428 [facility] 251 ug/dL 228-428 [facility] No Panel InformationOrdered By: Lj Piña on 06-15-2025 16 U/L <38 [facility] Nucleated red blood cell per centageOrdered By: Lj Piña on 06-15-2025 Nucleated RBC/100 WBC (Bld) [Ratio] 0 % 0-5 [facility] Oncology Visit Reporton Oncology Visit Report Normal [facility] Phosphoruson 06-15-2025 Phosphate [Mass/Vol] 3.6 mg/dL Normal 2.7-4.5 [facility] Comment on above: Performed By: #### L 501.2300, L100.0100, L500.4050 ####[facility] [address] [place], [address] Platelet countOrdered By: Bridgett Piña on 06-15-2025 Platelets (Bld) [#/Vol] 142 10*3/uL Low 150-450 [facility] Potassium measurement (mass/ volume)Ordered By: Lj Piña on 06-15-2025 Potassium (Unsp spec) [Mass/Vol] 3.9 mmol/L 3.3-5.1 [facility] RBC Auto (Bld) [#/Vol]Ordere d By: Lj Piña on 06-15-2025 RBC (Bld) [#/Vol] 5.00 10*6/uL 4.6-6.2 [facility] Serum creatinine measurement (mass/volume)Ordered By: Lj Piña on 06-15-2025 Creatinine [Mass/Vol] 0.94 mg/dL 0.70-1.20 [facility] Serum globulin measurementOr dered By: Lj Piña on 06-15-2025 Globulin (S) [Mass/Vol] 1.8 g/dL Low 2.2-4.2 [facility] Serum glucose measurement (m ass/volume)Ordered By: Lj Piña on 06-15-2025 Glucose [Mass/Vol] 96 mg/dL 70-99 [facility] Serum or plasma alanine kong otransferase (ALT) measurementOrdered By: Lj Piña on 06-15-2025 ALT [Catalytic activity/Vol] 15 U/L <47 [facility] Serum or plasma albumin deangelo urement (mass/volume)Ordered By: Lj Piña on 06-15-2025 Albumin [Mass/Vol] 4.0 g/dL 3.4-4.8 [facility] Serum or plasma albumin/glob ulin mass ratioOrdered By: Lj Piña on 06-15-2025 Albumin/Globulin [Mass ratio] 2.2 {ratio} 0.9-2.4 [facility] Serum or plasma alkaline alie sphatase measurementOrdered By: Lj Piña on 06-15-2025 ALP [Catalytic activity/Vol] 49 U/L 40-129 [facility] Serum or plasma calcium deangelo urement (mass/volume)Ordered By: Lj Piña on 06-15-2025 Calcium [Mass/Vol] 8.8 mg/dL 7.6-11.0 [facility] Serum or plasma cortisol samantha surement (mass/volume)Ordered By: Angela Rodriguez on 06-15-2025 Cortisol [Mass/Vol] ug/dL Low 6.02-18.40 [facility] Serum or plasma ferritin samantha surement (mass/volume)Ordered By: Angela Rodriguez on 06-15-2025 Ferritin [Mass/Vol] 130 ng/mL 37-417 [facility] Serum or plasma iron saturat ion measurement (mass fraction)Ordered By: Angela Rodriguez on 06-15-2025 Iron saturation [Mass fraction] 14.0 % 9-55 [facility] Serum or plasma urea nitroge n measurement (mass/volume)Ordered By: Lj Piña on 06-15-2025 Urea nitrogen [Mass/Vol] 21 mg/dL High 4-19 [facility] Sodium levelOrdered By: Santino Piña on 06-15-2025 Sodium [Moles/Vol] 140 mmol/L 133-145 [facility] T4 Free Directon 06-15-2025 T4 FREE DIRECT 1.40 ng/dL Normal 0.76-1.46 [facility] Comment on above: Performed By: #### L 509.6001, L503.6030, L501.9520, L503.6550, L506.0400, L501.5200 ####[facility] [address] [place], [place], [id number] T4 freeOrdered By: Angela goff on 06-15-2025 Free T4 [Mass/Vol] 1.40 ng/dL 0.76-1.46 [facility] TSH DL <= 0.005 mIU/L QnOrde red By: Angela Rodriguez on 06-15-2025 TSH Qn 2.330 uIU/mL 0.300-4.200 [facility] Thyroid Stim Hormone (TSH)on 06-15-2025 TSH 2.330 uIU/mL Normal 0.300-4.200 [facility] Comment on above: Performed By: #### L 509.6001, L503.6030, L501.9520, L503.6550, L506.0400, L501.5200 ####[facility] [address] [place], [place], [id number] Total proteinOrdered By: Steven Piña on 06-15-2025 Protein [Mass/Vol] 5.9 g/dL 5.9-8.4 [facility] White blood cell (WBC) count Ordered By: Lj Piña on 06-15-2025 WBC (Bld) [#/Vol] 6.5 10*3/uL 4.4-11.0 [facility] Pulmonary Visit Reporton Pulmonary Visit Report Normal [facility] Absolute lymphocyte countOrd ered By: Angela Rodriguez on 05-24-2025 Lymphocytes Auto (Unsp spec) [#/Vol] 0.99 10*3/uL 0.83-4.51 [facility] Absolute neutrophil countOrd ered By: Angela Rodriguez on 05-24-2025 Neutrophils (Bld) [#/Vol] 4.4 10*3/uL 2.0-7.7 [facility] Anion gap in Serum or Plasma Ordered By: Jackietonny Rodriguez on 05-24-2025 Anion gap [Moles/Vol] 11 mmol/L 5-15 [facility] Automated lymphocyte count a s percentage of total leukocytesOrdered By: Jackietonny Rodriguez on 05-24-2025 Lymphocytes/100 WBC Auto (Unsp spec) 16.1 % Low 19-41 [facility] BUN/creatinine ratioOrdered By: [facility] Michael on 05-24-2025 Urea nitrogen/Creatinine [Mass ratio] 16.5 mg/mg 10- [facility] Basophil percentageOrdered B y: Angela Rodriguez on 05-24-2025 Basophils/100 WBC (Bld) 0.5 % 0- [facility] Bilirubin, totalOrdered By: [facility] on 05-24-2025 Bilirubin [Mass/Vol] 0.35 mg/dL 0.00-1.30 [facility] CBC W/Diff, Automatedon 05-09 Absolute Lymph 0.99 X10 3/uL Normal 0.83-4.51 [facility] Comment on above: Performed By: #### L 501.2300, L100.0100, L500.4050 ####[facility] [address] [place], [address] Absolute Neut 4.4 X10 3/uL Normal 2.0-7.7 [facility] Comment on above: Performed By: #### L 501.2300, L100.0100, L500.4050 ####[facility] [address] [place], [address] Basophils/100 WBC (Bld) 0.5 % Normal 0-1 [facility] Comment on above: Performed By: #### L 501.2300, L100.0100, L500.4050 ####[facility] [address] [place], [address] Eosinophils/100 WBC (Bld) 1.3 % Normal 0-5 [facility] Comment on above: Performed By: #### L 501.2300, L100.0100, L500.4050 ####[facility] [address] [place], [address] Erythrocyte distribution width (RBC) [Ratio] 18.6 % High 11.6-14.6 [facility] Comment on above: Performed By: #### L 501.2300, L100.0100, L500.4050 ####[facility] [address] [place], [address] Hematocrit (Bld) [Volume fraction] 36.1 % Low 40-54 [facility] Comment on above: Performed By: #### L 501.2300, L100.0100, L500.4050 ####[facility] [address] [place], [address] Hemoglobin (Bld) [Mass/Vol] 11.6 g/dL Low 13.0-16.5 [facility] Comment on above: Performed By: #### L 501.2300, L100.0100, L500.4050 ####[facility] [address] [place], [address] IG% 1.900 High 0.0-0.9 [facility] Comment on above: Result Comment: IG% - Immature Granulocytes (promyelocytes, myelocytes andmetamyelocytes) > 1% indicates that a LEFT SHIFT is Present. Performed By: #### L 501.2300, L100.0100, L500.4050 ####[facility] [address] [place], [address] Lymphocytes/100 WBC (Bld) 16.1 % Low 19-41 [facility] Comment on above: Performed By: #### L 501.2300, L100.0100, L500.4050 ####[facility] [address] [place], [address] MCH (RBC) [Entitic mass] 24.8 pg Low 27.0-32.0 [facility] Comment on above: Performed By: #### L 501.2300, L100.0100, L500.4050 ####[facility] [address] [place], [address] MCHC (RBC) [Mass/Vol] 32.1 g/dL Normal 32-36 [facility] Comment on above: Performed By: #### L 501.2300, L100.0100, L500.4050 ####[facility] [address] [place], [address] MCV (RBC) [Entitic vol] 77.3 fL Low 80-94 [facility] Comment on above: Performed By: #### L 501.2300, L100.0100, L500.4050 ####[facility] [address] [place], [address] Monocytes/100 WBC (Bld) 9.1 % Normal 0-10 [facility] Comment on above: Performed By: #### L 501.2300, L100.0100, L500.4050 ####[facility] [address] [place], [address] Neutrophils/100 WBC (Bld) 71.1 % High 47-70 [facility] Comment on above: Performed By: #### L 501.2300, L100.0100, L500.4050 ####[facility] [address] [place], [address] Nucleated RBC (Bld) [#/Vol] 0 10*3/uL Normal 0-5 [facility] Comment on above: Performed By: #### L 501.2300, L100.0100, L500.4050 ####[facility] [address] [place], [address] Platelet mean volume (Bld) [Entitic vol] 9.5 fL Normal 6.2-12.0 [facility] Comment on above: Performed By: #### L 501.2300, L100.0100, L500.4050 ####[facility] [address] [place], [address] Platelets (Bld) [#/Vol] 127 10*3/uL Low 150-450 [facility] Comment on above: Performed By: #### L 501.2300, L100.0100, L500.4050 ####[facility] [address] [place], [address] RBC (Bld) [#/Vol] 4.67 10*6/uL Normal 4.6-6.2 [facility] Comment on above: Performed By: #### L 501.2300, L100.0100, L500.4050 ####[facility] [address] [place], [address] RDW SD 52.0 fl High 35.1-43.9 [facility] Comment on above: Performed By: #### L 501.2300, L100.0100, L500.4050 ####[facility] [address] [place], [address] WBC (Bld) [#/Vol] 6.2 10*3/uL Normal 4.4-11.0 [facility] Comment on above: Performed By: #### L 501.2300, L100.0100, L500.4050 ####[facility] [address] [place], [address] Carbon dioxide, total [Moles /volume] in Central venous bloodOrdered By: Angela Rodriguez on 05-24-2025 CO2 [Moles/Vol] 19.8 mmol/L Low 21.0-32.0 [facility] Chloride assayOrdered By: Ivonne Rodriguez on 05-24-2025 Chloride [Moles/Vol] 108 mmol/L 98-108 [facility] Comprehensive Metabolic Prof ilon 05-24-2025 Albumin [Mass/Vol] 3.6 g/dL Normal 3.4-4.8 [facility] Comment on above: Performed By: #### L 501.2300, L100.0100, L500.4050 ####[facility] [address] [place], [address] Albumin/Globulin [Mass ratio] 1.9 {ratio} Normal 0.9-2.4 [facility] Comment on above: Performed By: #### L 501.2300, L100.0100, L500.4050 ####[facility] [address] [place], [address] ALK PHOS 51 U/L Normal 40-129 [facility] Comment on above: Performed By: #### L 501.2300, L100.0100, L500.4050 ####[facility] [address] [place], [address] ALT [Catalytic activity/Vol] 14 U/L Normal <=46 [facility] Comment on above: Performed By: #### L 501.2300, L100.0100, L500.4050 ####[facility] [address] [place], [address] AST [Catalytic activity/Vol] 15 U/L Normal <=37 [facility] Comment on above: Performed By: #### L 501.2300, L100.0100, L500.4050 ####[facility] [address] [place], [address] Bilirubin [Mass/Vol] 0.35 mg/dL Normal 0.00-1.30 [facility] Comment on above: Performed By: #### L 501.2300, L100.0100, L500.4050 ####[facility] [address] [place], [address] BUN/CRE 16.5 RATIO Normal 10-20 [facility] Comment on above: Performed By: #### L 501.2300, L100.0100, L500.4050 ####[facility] [address] [place], [address] Calcium [Mass/Vol] 8.6 mg/dL Normal 7.6-11.0 [facility] Comment on above: Performed By: #### L 501.2300, L100.0100, L500.4050 ####[facility] [address] [place], [address] Chloride [Moles/Vol] 108 mmol/L Normal 98-108 [facility] Comment on above: Performed By: #### L 501.2300, L100.0100, L500.4050 ####[facility] [address] [place], [address] CO2 [Moles/Vol] 19.8 mmol/L Low 21.0-32.0 [facility] Comment on above: Performed By: #### L 501.2300, L100.0100, L500.4050 ####[facility] [address] [place], [address] Creatinine [Mass/Vol] 0.91 mg/dL Normal 0.70-1.20 [facility] Comment on above: Performed By: #### L 501.2300, L100.0100, L500.4050 ####[facility] [address] [place], [address] ECRCL 72.75 ml/min Normal 50-250 [facility] Comment on above: Performed By: #### L 501.2300, L100.0100, L500.4050 ####[facility] [address] [place], [address] GAP 11 Normal 5-15 [facility] Comment on above: Performed By: #### L 501.2300, L100.0100, L500.4050 ####[facility] [address] [place], [address] GFR/1.73 sq M.predicted among non-blacks MDRD (S/P/Bld) [Vol rate/Area] 90 mL/min/{1.73_m2} Normal >60 [facility] Comment on above: Result Comment: mL/m in/1.73m2 CKD-EPI Creatinine Equation (2020) Performed By: #### L 501.2300, L100.0100, L500.4050 ####[facility] [address] [place], [address] Globulin (S) [Mass/Vol] 1.9 g/dL Low 2.2-4.2 [facility] Comment on above: Performed By: #### L 501.2300, L100.0100, L500.4050 ####[facility] [address] [place], [address] Glucose [Mass/Vol] 103 mg/dL High 70-99 [facility] Comment on above: Performed By: #### L 501.2300, L100.0100, L500.4050 ####[facility] [address] [place], [address] Potassium [Moles/Vol] 3.6 mmol/L Normal 3.3-5.1 [facility] Comment on above: Performed By: #### L 501.2300, L100.0100, L500.4050 ####[facility] [address] [place], [address] Sodium [Moles/Vol] 139 mmol/L Normal 133-145 [facility] Comment on above: Performed By: #### L 501.2300, L100.0100, L500.4050 ####[facility] [address] [place], [address] T PROT 5.5 g/dL Low 5.9-8.4 [facility] Comment on above: Performed By: #### L 501.2300, L100.0100, L500.4050 ####[facility] [address] [place], [address] Urea nitrogen [Mass/Vol] 15 mg/dL Normal 4-19 [facility] Comment on above: Performed By: #### L 501.2300, L100.0100, L500.4050 ####[facility] [address] [place], [address] Eosinophil percentageOrdered By: Angela Rodriguez on 05-24-2025 Eosinophils/100 WBC (Bld) 1.3 % 0-5 [facility] Erythrocyte distribution wid th ratioOrdered By: Angela Rodriguez on 05-24-2025 Erythrocyte distribution width (RBC) [Ratio] 18.6 % High 11.6-14.6 [facility] Erythrocyte distribution wid th standard deviationOrdered By: [facility] Rodriguez on 05-24-2025 Erythrocyte distribution width (RBC) [Ratio] 52.0 fl High 35.1-43.9 [facility] Glomerular filtration rate ( GFR) estimation/1.73 sq m using serum, plasma, or whole bOrdered By: Angela Rodriguez on 05-24-2025 GFR/1.73 sq M.predicted among non-blacks MDRD (S/P/Bld) [Vol rate/Area] 90 mL/min/{1.73_m2} >60 [facility] Comment on above: mL/min/1.73m2 CKD-EP I Creatinine Equation (2020) Hematocrit Auto (Bld) [Volum e fraction]Ordered By: Angela Rodriguez on 05-24-2025 Hematocrit (Bld) [Volume fraction] 36.1 % Low 40-54 [facility] Hemoglobin measurementOrdere d By: Angela Rodriguez on 05-24-2025 Hemoglobin (Bld) [Mass/Vol] 11.6 g/dL Low 13.0-16.5 [facility] Immature granulocytes/100 WB C Auto (Bld)Ordered By: Angela Rodriguez on 05-24-2025 Immature granulocytes/100 WBC (Bld) 1.900 % High 0.0-0.9 [facility] Comment on above: IG% - Immature Granu locytes (promyelocytes, myelocytes and metamyelocytes) > 1% indicates that a LEFT SHIFT is Present. Laboratory - Chemistry and C hemistry - challengeOrdered By: Angela Rodriguez on 05-24-2025 AST [Catalytic activity/Vol] 15 U/L <38 [facility] MCV (mean corpuscular volume ) determinationOrdered By: [facility] Rodriguez on 05-24-2025 MCV (RBC) [Entitic vol] 77.3 fL Low 80-94 [facility] Mean corpuscular hemoglobin (MCH) determinationOrdered By: [facility] on 05-24-2025 MCH (RBC) [Entitic mass] 24.8 pg Low 27.0-32.0 [facility] Mean corpuscular hemoglobin concentration (MCHC) determinationOrdered By: Angela Rodriguez on 05-24-2025 MCHC (RBC) [Mass/Vol] 32.1 g/dL 32-36 [facility] Mean platelet volume determi nationOrdered By: Angela Rodriguez on 05-24-2025 Platelet mean volume (Bld) [Entitic vol] 9.5 fL 6.2-12.0 [facility] Monocyte percentageOrdered B y: Angela Rodriguez on 05-24-2025 Monocytes/100 WBC (Bld) 9.1 % 0-10 [facility] Neutrophil percentageOrdered By: [facility] on 05-24-2025 Neutrophils/100 WBC (Bld) 71.1 % High 47-70 [facility] Nucleated red blood cell per centageOrdered By: [facility] on 05-24-2025 Nucleated RBC/100 WBC (Bld) [Ratio] 0 % 0-5 [facility] Oncology Visit Reporton 05-09 Oncology Visit Report Normal [facility] Phosphoruson 05-24-2025 Phosphate [Mass/Vol] 3.8 mg/dL Normal 2.7-4.5 [facility] Comment on above: Performed By: #### L 501.2300, L100.0100, L500.4050 ####[facility] [id number] [place], [place], [id number] Platelet countOrdered By: Ivonne Rodriguez on 05-24-2025 Platelets (Bld) [#/Vol] 127 10*3/uL Low 150-450 [facility] Potassium measurement (mass/ volume)Ordered By: Angela Rodriguez on 05-24-2025 Potassium (Unsp spec) [Mass/Vol] 3.6 mmol/L 3.3-5.1 [facility] RBC Auto (Bld) [#/Vol]Ordere d By: Angela Rodriguez on 05-24-2025 RBC (Bld) [#/Vol] 4.67 10*6/uL 4.6-6.2 [facility] Serum creatinine measurement (mass/volume)Ordered By: Angela Rodriguez on 05-24-2025 Creatinine [Mass/Vol] 0.91 mg/dL 0.70-1.20 [facility] Serum globulin measurementOr dered By: Anglea Rodriguez on 05-24-2025 Globulin (S) [Mass/Vol] 1.9 g/dL Low 2.2-4.2 [facility] Serum glucose measurement (m ass/volume)Ordered By: Angela Rodriguez on 05-24-2025 Glucose [Mass/Vol] 103 mg/dL High 70-99 [facility] Serum or plasma alanine kong otransferase (ALT) measurementOrdered By: Angela Rodriguez on 05-24-2025 ALT [Catalytic activity/Vol] 14 U/L <47 [facility] Serum or plasma albumin deangelo urement (mass/volume)Ordered By: Angela Rodriguez on 05-24-2025 Albumin [Mass/Vol] 3.6 g/dL 3.4-4.8 [facility] Serum or plasma albumin/glob ulin mass ratioOrdered By: Angela Rodriguez on 05-24-2025 Albumin/Globulin [Mass ratio] 1.9 {ratio} 0.9-2.4 [facility] Serum or plasma alkaline alie sphatase measurementOrdered By: Angela Michael on 05-24-2025 ALP [Catalytic activity/Vol] 51 U/L 40-129 [facility] Serum or plasma calcium deangelo urement (mass/volume)Ordered By: Angela Michael on 05-24-2025 Calcium [Mass/Vol] 8.6 mg/dL 7.6-11.0 [facility] Serum or plasma urea nitroge n measurement (mass/volume)Ordered By: Angela Michael on 05-24-2025 Urea nitrogen [Mass/Vol] 15 mg/dL 4-19 [facility] Sodium levelOrdered By: Jackie lancaster Michael on 05-24-2025 Sodium [Moles/Vol] 139 mmol/L 133-145 [facility] Total proteinOrdered By: Antoni apodaca Michael on 05-24-2025 Protein [Mass/Vol] 5.5 g/dL Low 5.9-8.4 [facility] White blood cell (WBC) count Ordered By: Angela Michael on 05-24-2025 WBC (Bld) [#/Vol] 6.2 10*3/uL 4.4-11.0 [facility] CNOVon 05-23-2025 CNOV Office Visit (NEAGCL M) ----- ARSHADKENN SR. ([id number]) 1955 M Date Time Provider Department 05/23/25 11:00 AM FRANCOIS ACEVEDO NEAGCLM During your visit today, we recorded the following information about you: Pulse Respiration Blood pressure Weight 70/minute 16/minute 128/70 80.3 kg Height 1.651 m Francois Acevedo MD 05/23/2025 11:02 AM Signed NEUROSURGERY FOLLOW UP OFFICE NOTE Dr. Francois Acevedo MD, [facility] Date of visit: May 23, 2025 Patient Name: Mr.Larry Linda Arshad . Date of : 1955 Current Age: [age] year old Sex: male MRN/E# [id number] Last Office Visit: November 18, 2024 CHIEF COMPLAINT: Patient presents with: Established Patient SUBJECTIVE: The patient presents as a follow-up with imaging (MRI B -perfusion) for evaluation. This is a 69-year-old male with a PMHx of stage IV [...] SRS (SBRT) to the metastatic lesion at [place]. Two months following treatment MRI was completed [...] recurrent seizures and was not taking any antiepileptics. Neurologically he was intact. MRI brain from April 2023 showed a mix of necrosis as well as viable tumor. MRI with perfusion was then obtained which showed evidence of perilesional edema likely to be necrosis rather than recurrent tumor. Attempt to wean him off Decadron was not successful. He sustained a fall in October [address] was suspicious for tumor progression/edema. 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 Since then he has been seen routinely with imaging and has remained nonsurgical. He was last seen in the office on 11/18/2024 and reported that he was overall doing well. He reported persistent, slight dizziness on a daily basis as well as numbness and tingling to the right side of his body which have been ongoing for over 1 year. He continued on Decadron 0.5mg daily. MRI with perfusion was reviewed and compared to prior imaging and showed that the left temporoparietal lesion appeared smaller without evidence of increased blood flow to suggest recurrence of tumor. There was no evidence of new lesions noted. He was given a weaning schedule to come off the Decadron over 2 weeks and advised to contact the office should he develop any neurological symptoms. If not recommendation was to follow-up in 6 months with a repeat MRI with perfusion sequence prompting his visit today. Since last visit he states he is overall doing well. He denies headache, visual changes, speech deficits, seizure activity, motor or sensory deficits. He has successfully weaned off Decadron and is doing well. He presents for image review, evaluation and plan of care. SYMPTOMS: None - mild balance issues PREVIOUS CONSERVATIVE TREATMENTS: None SURGICAL RISK: Smoker: Former -quit 03/12/2021 Diabetic: No Anticoagulants / Antiplatelets: Eliquis (PE) Occupation: N/A PREVIOUS NEUROSURGERY: SURGERY #1: SRS (SBRT) to a solitary metastatic brain tumor on 10/28/2022 at an outside hospital. 1. Left posterior parietal - 2400 cGy in 1 fraction ONCOLOGY TREATMENT TEAM: Primary Cancer: Renal call carcinoma Hematology / Oncology - Dr. Angela Rodriguez - Immunotherapy q 3 weeks Radiation/ Oncology - Dr. Percy Tao ([place]) PAIN EVALUATION No data found in the last 1 encounters. PAST MEDICAL HISTORY Diagnosis Date Coronary artery disease Stents History of colon polyps Hypertension Skin cancer PAST SURGICAL HISTORY Procedure Laterality Date COLONOSCOPY 02/21/2019 Tubular adenoma rectum EGD 12/18/2021 marked villious blunting (more content not included)... Normal [facility] MR Brain WO and W contrast I Von 05-18-2025 IMPRESSION: Continued interval decrease in size of LEFT periatrial enhancing mass with persistent peripheral elevated cerebral blood volume compatible with residual viable neoplasm. Slight interval increase in confluent nonenhancing perilesional T2/FLAIR hyperintensity in the LEFT perirolandic region, possibly evolving posttreatment change. Acid Operator: FLAVIO Transcribe Date/Time: May 18 2025 12:57P Dictated by : EM NICOLE MD This examination was interpreted and the report reviewed and electronically signed by: EM NICOLE MD on May 18 2025 1:12PM [facility] DIVISION OF RADIOLOGY * * *Final Report* * * DATE OF EXAM: May 18 2025 11:35AM M 0295 - MRI BRAIN WO/W IVCON / PROCEDURE REASON: Secondary malignant neoplasm of brain (HCC) * * * * Physician Interpretation * * * * EXAMINATION: MRI BRAIN WO/W IVCON CLINICAL HISTORY: Secondary malignant neoplasm of brain (HCC) . Upon further review the electronic medical record, PMHx of stage IV renal cell carcinoma (left kidney?2005), left total nephrectomy, grade III adenocarcinoma of the lung (03/13/2021), s/p right lobectomy?with metastasis to the brain followed by radiation therapy?(10/2022). 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 TECHNIQUE: MRI brain intracranial mass protocol without and with contrast. Perfusion imaging was performed. MQ: MRBWOW_2 Contrast: 20 mL Dotarem IV COMPARISON: MRI brain 11/11/2024 RESULT: Acute Change: There is no evidence of restricted diffusion to suggest an acute infarct. Hemorrhage: Extensive susceptibility artifact corresponding to the enhancing LEFT periatrial lesion detailed below compatible with intralesional hemorrhage and/or posttreatment change. No new or progressive intracranial hemorrhage. Mass Lesion/ Mass Effect: Redemonstrated heterogeneously enhancing mass lesion within the LEFT periatrial white matter extending into the subcortical LEFT superior parietal lobule. Utilizing co-registration software for slice by slice comparison, the degree and conspicuity of enhancement in size of the lesion appears slightly decreased in size from 11/11/2024 now measuring up to 2.3 x 1.9 x 2.0 cm (transaxial long axis by short axis by CC; 14:63), previously measuring up to 2.7 x 2.5 x 2.4 cm on 11/11/2024 and 3.1 x 3.0 x 3.5 cm on 05/17/2024 when measured in a similar fashion . Confluent perilesional T2/FLAIR hyperintensity throughout the LEFT parietal and occipital periventricular and subcortical white matter also appears grossly unchanged in distribution/morphology except for regions and the LEFT perirolandic subcortical white matter which appear progressed from prior (for example 3:20-23). No significant mass effect. No other areas of abnormal parenchymal or leptomeningeal enhancement identified. Perfusion: Perfusion imaging is adequate in terms of full capture of the bolus, negligible patient motion, and only minor confounding susceptibility effect. Peripheral enhancing components of the above-mentioned mass continued to demonstrate elevated cerebral blood volume particularly along the LEFT lateral aspect (perfusion images 12-13), similar to prior. Chronic Change: Scattered patchy areas of increased T2 and FLAIR signal are present in the supratentorial white matter which is a nonspecific finding but likely represents mild chronic microvascular ischemia. Parenchyma: There is moderate predominantly central parenchymal volume loss. Ventricles: The lateral and third ventricles are enlarged but this likely relates to central volume loss. Skull Base: Hypothalamic and pituitary region are grossly normal. Craniocervical junction is normal. No significant marrow replacement process. Vasculature: Major intracranial arterial structures, and dural venous sinuses show typical flow void, suggesting patency by spin echo criteria. Other: Patchy mucosal thickening throughout most prominently in the inferior maxillary sinuses and ethmoidal air cells. Trace bilateral mastoid effusions. Bilateral pseudophakia. Otherwise, the orbits appear unremarkable. The skull base appears unremarkable. Extracranial soft tissues appear within normal limits. DIVISION OF RADIOLOGY Provider, [facility] - 05/18/2025 * * *Final Report* * * DATE OF EXAM: May 18 2025 11:35AM [facility] 0295 - MRI BRAIN WO/W IVCON / PROCEDURE REASON: Secondary malignant neoplasm of brain (HCC) * * * * Physician Interpretation * * * * EXAMINATION: MRI BRAIN WO/W IVCON CLINICAL HISTORY: Secondary malignant neoplasm of brain (HCC) . Upon further review the electronic medical record, PMHx of stage IV renal cell carcinoma (left kidney?2005), left total nephrectomy, grade III adenocarcinoma of the lung (03/13/2021), s/p right lobectomy?with metastasis to the brain followed by radiation therapy?(10/2022). 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 TECHNIQUE: MRI brain intracranial mass protocol without and with contrast. Perfusion imaging was performed. MQ: MRBWOW_2 Contrast: 20 mL Dotarem IV COMPARISON: MRI brain 11/11/2024 RESULT: Acute Change: There is no evidence of restricted diffusion to suggest an acute infarct. Hemorrhage: Extensive susceptibility artifact corresponding to the enhancing LEFT periatrial lesion detailed below compatible with intralesional hemorrhage and/or posttreatment change. No new or progressive intracranial hemorrhage. Mass Lesion/ Mass Effect: Redemonstrated heterogeneously enhancing mass lesion within the LEFT periatrial white matter extending into the subcortical LEFT superior parietal lobule. Utilizing co-registration software for slice by slice comparison, the degree and conspicuity of enhancement in size of the lesion appears slightly decreased in size from 11/11/2024 now measuring up to 2.3 x 1.9 x 2.0 cm (transaxial long axis by short axis by CC; 14:63), previously measuring up to 2.7 x 2.5 x 2.4 cm on 11/11/2024 and 3.1 x 3.0 x 3.5 cm on 05/17/2024 when measured in a similar fashion . Confluent perilesional T2/FLAIR hyperintensity throughout the LEFT parietal and occipital periventricular and subcortical white matter also appears grossly unchanged in distribution/morphology except for regions and the LEFT perirolandic subcortical white matter which appear progressed from prior (for example 3:20-23). No significant mass effect. No other areas of abnormal parenchymal or leptomeningeal enhancement identified. Perfusion: Perfusion imaging is adequate in terms of full capture of the bolus, negligible patient motion, and only minor confounding susceptibility effect. Peripheral enhancing components of the above-mentioned mass continued to demonstrate elevated cerebral blood volume particularly along the LEFT lateral aspect (perfusion images 12-13), similar to prior. Chronic Change: Scattered patchy areas of increased T2 and FLAIR signal are present in the supratentorial white matter which is a nonspecific finding but likely represents mild chronic microvascular ischemia. Parenchyma: There is moderate predominantly central parenchymal volume loss. Ventricles: The lateral and third ventricles are enlarged but this likely relates to central volume loss. Skull Base: Hypothalamic and pituitary region are grossly normal. Craniocervical junction is normal. No significant marrow replacement process. Vasculature: Major intracranial arterial structures, and dural venous sinuses show typical flow void, suggesting patency by spin echo criteria. Other: Patchy mucosal thickening throughout most prominently in the inferior maxillary sinuses and ethmoidal air cells. Trace bilateral mastoid effusions. Bilateral pseudophakia. Otherwise, the orbits appear unremarkable. The skull base appears unremarkable. Extracranial soft tissues appear within normal limits. IMPRESSION IMPRESSION: Continued interval decrease in size of LEFT periatrial enhancing mass with persistent peripheral elevated cerebral blood volume compatible with residual viable neoplasm. Slight interval increase in confluent nonenhancing perilesional T2/FLAIR hyperintensity in the LEFT perirolandic region, possibly evolving posttreatment change. Acid Operator: PSCB Transcribe Date/Time: May 18 2025 12:57P Dictated by : EM NICOLE MD This examination was interpreted and the report reviewed and electronically signed by: EM NICOLE MD on May 18 2025 1:12PM EST [facility] Radiology Study observation (narrative) [facility] MR Brain WO and W contrast I VOrdered By: [facility] Provider on 05-18-2025 [facility] MRI BRAIN WO/W IVCONon 05-18 MRI BRAIN WO/W IVCON * * *Final Report* * * DATE OF EXAM: May 18 2025 11:35AM [facility] 0295 - MRI BRAIN WO/W IVCON / PROCEDURE REASON: Secondary malignant neoplasm of brain (HCC) * * * * Physician Interpretation * * * * EXAMINATION: MRI BRAIN WO/W IVCON CLINICAL HISTORY: Secondary malignant neoplasm of brain (HCC) . Upon further review the electronic medical record, PMHx of stage IV renal cell carcinoma (left kidney?2005), left total nephrectomy, grade III adenocarcinoma of the lung (03/13/2021), s/p right lobectomy?with metastasis to the brain followed by radiation therapy?(10/2022). 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 TECHNIQUE: MRI brain intracranial mass protocol without and with contrast. Perfusion imaging was performed. MQ: MRBWOW_2 Contrast: 20 mL Dotarem IV COMPARISON: MRI brain 11/11/2024 RESULT: Acute Change: There is no evidence of restricted diffusion to suggest an acute infarct. Hemorrhage: Extensive susceptibility artifact corresponding to the enhancing LEFT periatrial lesion detailed below compatible with intralesional hemorrhage and/or posttreatment change. No new or progressive intracranial hemorrhage. Mass Lesion/ Mass Effect: Redemonstrated heterogeneously enhancing mass lesion within the LEFT periatrial white matter extending into the subcortical LEFT superior parietal lobule. Utilizing co-registration software for slice by slice comparison, the degree and conspicuity of enhancement in size of the lesion appears slightly decreased in size from 11/11/2024 now measuring up to 2.3 x 1.9 x 2.0 cm (transaxial long axis by short axis by CC; 14:63), previously measuring up to 2.7 x 2.5 x 2.4 cm on 11/11/2024 and 3.1 x 3.0 x 3.5 cm on 05/17/2024 when measured in a similar fashion . Confluent perilesional T2/FLAIR hyperintensity throughout the LEFT parietal and occipital periventricular and subcortical white matter also appears grossly unchanged in distribution/morphology except for regions and the LEFT perirolandic subcortical white matter which appear progressed from prior (for example 3:20-23). No significant mass effect. No other areas of abnormal parenchymal or leptomeningeal enhancement identified. Perfusion: Perfusion imaging is adequate in terms of full capture of the bolus, negligible patient motion, and only minor confounding susceptibility effect. Peripheral enhancing components of the above-mentioned mass continued to demonstrate elevated cerebral blood volume particularly along the LEFT lateral aspect (perfusion images 12-13), similar to prior. Chronic Change: Scattered patchy areas of increased T2 and FLAIR signal are present in the supratentorial white matter which is a nonspecific finding but likely represents mild chronic microvascular ischemia. Parenchyma: There is moderate predominantly central parenchymal volume loss. Ventricles: The lateral and third ventricles are enlarged but this likely relates to central volume loss. Skull Base: Hypothalamic and pituitary region are grossly normal. Craniocervical junction is normal. No significant marrow replacement process. Vasculature: Major intracranial arterial structures, and dural venous sinuses show typical flow void, suggesting patency by spin echo criteria. Other: Patchy mucosal thickening throughout most prominently in the inferior maxillary sinuses and ethmoidal air cells. Trace bilateral mastoid effusions. Bilateral pseudophakia. Otherwise, the orbits appear unremarkable. The skull base appears unremarkable. Extracranial soft tissues appear within normal limits. 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 Slight interval increase in confluent nonenhancing perilesional T2/FLAIR hyperintensity in the LEFT perirolandic region, possibly evolving posttreatment change. Acid Operator: FLAVIO Transcribe Date/Time: May 18 2025 12:57P Dictated by : EM NICOLE MD This examination was interpreted and the report reviewed and electronically signed by: EM NICOLE MD on May 18 2025 1:12PM EST [id number] Normal [facility] Absolute lymphocyte countOrd ered By: Angela Rodriguez on 05-02-2025 Lymphocytes Auto (Unsp spec) [#/Vol] 0.91 10*3/uL 0.83-4.51 [facility] Anion gap in Serum or Plasma Ordered By: Angela Rodriguez on 05-02-2025 Anion gap [Moles/Vol] 12 mmol/L 5-15 [facility] Automated lymphocyte count a s percentage of total leukocytesOrdered By: Angela Rodriguez on 05-02-2025 Lymphocytes/100 WBC Auto (Unsp spec) 15.4 % Low 19-41 [facility] BUN/creatinine ratioOrdered By: [facility] Rodriguez on 05-02-2025 Urea nitrogen/Creatinine [Mass ratio] 17.9 mg/mg 10-20 [facility] Basophil percentageOrdered B y: Angela Rodriguez on 05-02-2025 Basophils/100 WBC (Bld) 1.2 % High 0-1 [facility] Bilirubin, totalOrdered By: Angela Rodriguez on 05-02-2025 Bilirubin [Mass/Vol] 0.30 mg/dL 0.00-1.30 [facility] CBC W/Diff, Automatedon 04-10 Absolute Lymph 0.91 X10 3/uL Normal 0.83-4.51 [facility] Comment on above: Performed By: #### L 503.6030, L503.6550, L100.0100, L501.5200, L501.2300, L500.4050 ####[facility] [address] [place], [address] Absolute Neut 3.9 X10 3/uL Normal 2.0-7.7 [facility] Comment on above: Performed By: #### L 503.6030, L503.6550, L100.0100, L501.5200, L501.2300, L500.4050 ####[facility] [address] [place], [address] Basophils/100 WBC (Bld) 1.2 % High 0-1 [facility] Comment on above: Performed By: #### L 503.6030, L503.6550, L100.0100, L501.5200, L501.2300, L500.4050 ####[facility] [address] [place], [address] Eosinophils/100 WBC (Bld) 1.0 % Normal 0-5 [facility] Comment on above: Performed By: #### L 503.6030, L503.6550, L100.0100, L501.5200, L501.2300, L500.4050 ####[facility] [address] [place], [address] Erythrocyte distribution width (RBC) [Ratio] 18.6 % High 11.6-14.6 [facility] Comment on above: Performed By: #### L 503.6030, L503.6550, L100.0100, L501.5200, L501.2300, L500.4050 ####[facility] [address] [place], [address] Hematocrit (Bld) [Volume fraction] 34.8 % Low 40-54 [facility] Comment on above: Performed By: #### L 503.6030, L503.6550, L100.0100, L501.5200, L501.2300, L500.4050 ####[facility] [address] [place], [address] Hemoglobin (Bld) [Mass/Vol] 11.2 g/dL Low 13.0-16.5 [facility] Comment on above: Performed By: #### L 503.6030, L503.6550, L100.0100, L501.5200, L501.2300, L500.4050 ####[facility] [address] [place], [address] IG% 4.600 High 0.0-0.9 [facility] Comment on above: Result Comment: IG% - Immature Granulocytes (promyelocytes, myelocytes andmetamyelocytes) > 1% indicates that a LEFT SHIFT is Present. Performed By: #### L 503.6030, L503.6550, L100.0100, L501.5200, L501.2300, L500.4050 ####[facility] [address] [place], [address] Lymphocytes/100 WBC (Bld) 15.4 % Low 19-41 [facility] Comment on above: Performed By: #### L 503.6030, L503.6550, L100.0100, L501.5200, L501.2300, L500.4050 ####[facility] [address] [place], [address] MCH (RBC) [Entitic mass] 25.1 pg Low 27.0-32.0 [facility] Comment on above: Performed By: #### L 503.6030, L503.6550, L100.0100, L501.5200, L501.2300, L500.4050 ####[facility] [address] [place], [address] MCHC (RBC) [Mass/Vol] 32.2 g/dL Normal 32-36 [facility] Comment on above: Performed By: #### L 503.6030, L503.6550, L100.0100, L501.5200, L501.2300, L500.4050 ####[facility] [address] [place], [address] MCV (RBC) [Entitic vol] 78.0 fL Low 80-94 [facility] Comment on above: Performed By: #### L 503.6030, L503.6550, L100.0100, L501.5200, L501.2300, L500.4050 ####[facility] [address] [place], [address] Monocytes/100 WBC (Bld) 12.3 % High 0-10 [facility] Comment on above: Performed By: #### L 503.6030, L503.6550, L100.0100, L501.5200, L501.2300, L500.4050 ####[facility] [address] [place], [address] Neutrophils/100 WBC (Bld) 65.5 % Normal 47-70 [facility] Comment on above: Performed By: #### L 503.6030, L503.6550, L100.0100, L501.5200, L501.2300, L500.4050 ####[facility] [address] [place], [address] Nucleated RBC (Bld) [#/Vol] 0 10*3/uL Normal 0-5 [facility] Comment on above: Performed By: #### L 503.6030, L503.6550, L100.0100, L501.5200, L501.2300, L500.4050 ####[facility] [address] [place], [address] Platelet mean volume (Bld) [Entitic vol] 9.1 fL Normal 6.2-12.0 [facility] Comment on above: Performed By: #### L 503.6030, L503.6550, L100.0100, L501.5200, L501.2300, L500.4050 ####[facility] [address] [place], [address] Platelets (Bld) [#/Vol] 172 10*3/uL Normal 150-450 [facility] Comment on above: Performed By: #### L 503.6030, L503.6550, L100.0100, L501.5200, L501.2300, L500.4050 ####[facility] [address] [place], [address] RBC (Bld) [#/Vol] 4.46 10*6/uL Low 4.6-6.2 [facility] Comment on above: Performed By: #### L 503.6030, L503.6550, L100.0100, L501.5200, L501.2300, L500.4050 ####[facility] [address] [place], [address] RDW SD 52.1 fl High 35.1-43.9 [facility] Comment on above: Performed By: #### L 503.6030, L503.6550, L100.0100, L501.5200, L501.2300, L500.4050 ####[facility] [address] [place], [address] WBC (Bld) [#/Vol] 5.9 10*3/uL Normal 4.4-11.0 [facility] Comment on above: Performed By: #### L 503.6030, L503.6550, L100.0100, L501.5200, L501.2300, L500.4050 ####[facility] [address] [place], [address] Absolute Neut Normal 2.0-7.7 [facility] Comment on above: Result Comment: DUPL ICATE ORDER Performed By: #### L 100.0100, L500.4050 ####[facility] [address] [place], [address] HCT Normal 40-54 [facility] Comment on above: Result Comment: DUPL ICATE ORDER Performed By: #### L 100.0100, L500.4050 ####[facility] [address] [place], [address] HGB Normal 13.0-16.5 [facility] Comment on above: Result Comment: DUPL ICATE ORDER Performed By: #### L 100.0100, L500.4050 ####[facility] [address] [place], [address] MCH Normal 27.0-32.0 [facility] Comment on above: Result Comment: DUPL ICATE ORDER Performed By: #### L 100.0100, L500.4050 ####[facility] [address] [place], [address] MCHC Normal 32-36 [facility] Comment on above: Result Comment: DUPL ICATE ORDER Performed By: #### L 100.0100, L500.4050 ####[facility] [address] [place], [address] MCV Normal 80-94 [facility] Comment on above: Result Comment: DUPL ICATE ORDER Performed By: #### L 100.0100, L500.4050 ####[facility] [address] [place], [address] NEUT% Normal 47-70 [facility] Comment on above: Result Comment: DUPL ICATE ORDER Performed By: #### L 100.0100, L500.4050 ####[facility] [address] [place], [address] PLT Normal 150-450 [facility] Comment on above: Result Comment: DUPL ICATE ORDER Performed By: #### L 100.0100, L500.4050 ####[facility] [address] [place], [address] RBC Normal 4.6-6.2 [facility] Comment on above: Result Comment: DUPL ICATE ORDER Performed By: #### L 100.0100, L500.4050 ####[facility] [address] [place], [address] RDW CV Normal 11.6-14.6 [facility] Comment on above: Result Comment: DUPL ICATE ORDER Performed By: #### L 100.0100, L500.4050 ####[facility] [address] [place], [address] RDW SD Normal 35.1-43.9 [facility] Comment on above: Result Comment: DUPL ICATE ORDER Performed By: #### L 100.0100, L500.4050 ####[facility] [address] [place], [address] WBC Normal 4.4-11.0 [facility] Comment on above: Result Comment: DUPL ICATE ORDER Performed By: #### L 100.0100, L500.4050 ####[facility] [address] [place], [address] Carbon dioxide, total [Moles /volume] in Central venous bloodOrdered By: Angela Rodriguez on 05-02-2025 CO2 [Moles/Vol] 17.6 mmol/L Low 21.0-32.0 [facility] Chloride assayOrdered By: Ivonne Rodriguez on 05-02-2025 Chloride [Moles/Vol] 109 mmol/L High 98-108 [facility] Comprehensive Metabolic Prof ilon 05-02-2025 Albumin [Mass/Vol] 3.4 g/dL Normal 3.4-4.8 [facility] Comment on above: Performed By: #### L 503.6030, L503.6550, L100.0100, L501.5200, L501.2300, L500.4050 ####[facility] [address] [place], [address] Albumin/Globulin [Mass ratio] 1.9 {ratio} Normal 0.9-2.4 [facility] Comment on above: Performed By: #### L 503.6030, L503.6550, L100.0100, L501.5200, L501.2300, L500.4050 ####[facility] [address] [place], [address] ALK PHOS 46 U/L Normal 40-129 [facility] Comment on above: Performed By: #### L 503.6030, L503.6550, L100.0100, L501.5200, L501.2300, L500.4050 ####[facility] [address] [place], [address] ALT [Catalytic activity/Vol] 13 U/L Normal <=46 [facility] Comment on above: Performed By: #### L 503.6030, L503.6550, L100.0100, L501.5200, L501.2300, L500.4050 ####[facility] [address] [place], [address] AST [Catalytic activity/Vol] 16 U/L Normal <=37 [facility] Comment on above: Performed By: #### L 503.6030, L503.6550, L100.0100, L501.5200, L501.2300, L500.4050 ####[facility] [address] [place], [address] Bilirubin [Mass/Vol] 0.30 mg/dL Normal 0.00-1.30 [facility] Comment on above: Performed By: #### L 503.6030, L503.6550, L100.0100, L501.5200, L501.2300, L500.4050 ####[facility] [address] [place], [address] BUN/CRE 17.9 RATIO Normal 10-20 [facility] Comment on above: Performed By: #### L 503.6030, L503.6550, L100.0100, L501.5200, L501.2300, L500.4050 ####[facility] [address] [place], [address] Calcium [Mass/Vol] 8.5 mg/dL Normal 7.6-11.0 [facility] Comment on above: Performed By: #### L 503.6030, L503.6550, L100.0100, L501.5200, L501.2300, L500.4050 ####[facility] [address] [place], [address] Chloride [Moles/Vol] 109 mmol/L High 98-108 [facility] Comment on above: Performed By: #### L 503.6030, L503.6550, L100.0100, L501.5200, L501.2300, L500.4050 ####[facility] [address] [place], [address] CO2 [Moles/Vol] 17.6 mmol/L Low 21.0-32.0 [facility] Comment on above: Performed By: #### L 503.6030, L503.6550, L100.0100, L501.5200, L501.2300, L500.4050 ####[facility] [address] [place], [address] Creatinine [Mass/Vol] 0.85 mg/dL Normal 0.70-1.20 [facility] Comment on above: Performed By: #### L 503.6030, L503.6550, L100.0100, L501.5200, L501.2300, L500.4050 ####[facility] [address] [place], [address] ECRCL 76.58 ml/min Normal 50-250 [facility] Comment on above: Performed By: #### L 503.6030, L503.6550, L100.0100, L501.5200, L501.2300, L500.4050 ####[facility] [address] [place], [address] GAP 12 Normal 5-15 [facility] Comment on above: Performed By: #### L 503.6030, L503.6550, L100.0100, L501.5200, L501.2300, L500.4050 ####[facility] [address] [place], [address] GFR/1.73 sq M.predicted among non-blacks MDRD (S/P/Bld) [Vol rate/Area] 93 mL/min/{1.73_m2} Normal >60 [facility] Comment on above: Result Comment: mL/m in/1.73m2 CKD-EPI Creatinine Equation (2020) Performed By: #### L 503.6030, L503.6550, L100.0100, L501.5200, L501.2300, L500.4050 ####[facility] [address] [place], [address] Globulin (S) [Mass/Vol] 1.9 g/dL Low 2.2-4.2 [facility] Comment on above: Performed By: #### L 503.6030, L503.6550, L100.0100, L501.5200, L501.2300, L500.4050 ####[facility] [address] [place], [address] Glucose [Mass/Vol] 105 mg/dL High 70-99 [facility] Comment on above: Performed By: #### L 503.6030, L503.6550, L100.0100, L501.5200, L501.2300, L500.4050 ####[facility] [address] [place], [address] Potassium [Moles/Vol] 3.2 mmol/L Low 3.3-5.1 [facility] Comment on above: Performed By: #### L 503.6030, L503.6550, L100.0100, L501.5200, L501.2300, L500.4050 ####[facility] [address] [place], [address] Sodium [Moles/Vol] 138 mmol/L Normal 133-145 [facility] Comment on above: Performed By: #### L 503.6030, L503.6550, L100.0100, L501.5200, L501.2300, L500.4050 ####[facility] [address] [place], [address] T PROT 5.3 g/dL Low 5.9-8.4 [facility] Comment on above: Performed By: #### L 503.6030, L503.6550, L100.0100, L501.5200, L501.2300, L500.4050 ####[facility] [address] [place], [address] Urea nitrogen [Mass/Vol] 15 mg/dL Normal 4-19 [facility] Comment on above: Performed By: #### L 503.6030, L503.6550, L100.0100, L501.5200, L501.2300, L500.4050 ####[facility] [address] [place], [address] ALB Normal 3.4-4.8 [facility] Comment on above: Result Comment: DUPL ICATE ORDER Performed By: #### L 100.0100, L500.4050 ####[facility] [address] [place], [address] ALK PHOS Normal 40-129 [facility] Comment on above: Result Comment: DUPL ICATE ORDER Performed By: #### L 100.0100, L500.4050 ####[facility] [address] [place], [address] ALT Normal <=46 [facility] Comment on above: Result Comment: DUPL ICATE ORDER Performed By: #### L 100.0100, L500.4050 ####[facility] [address] [place], [address] AST Normal <=37 [facility] Comment on above: Result Comment: DUPL ICATE ORDER Performed By: #### L 100.0100, L500.4050 ####[facility] [address] [place], [address] BUN Normal 4-19 [facility] Comment on above: Result Comment: DUPL ICATE ORDER Performed By: #### L 100.0100, L500.4050 ####[facility] [address] [place], [address] BUN/CRE Normal 10-20 [facility] Comment on above: Result Comment: DUPL ICATE ORDER Performed By: #### L 100.0100, L500.4050 ####[facility] [address] [place], [address] Calcium Normal 7.6-11.0 [facility] Comment on above: Result Comment: DUPL ICATE ORDER Performed By: #### L 100.0100, L500.4050 ####[facility] [address] [place], [address] CL Normal 98-108 [facility] Comment on above: Result Comment: DUPL ICATE ORDER Performed By: #### L 100.0100, L500.4050 ####[facility] [address] [place], [address] CO2 Normal 21.0-32.0 [facility] Comment on above: Result Comment: DUPL ICATE ORDER Performed By: #### L 100.0100, L500.4050 ####[facility] [address] [place], [address] CREAT,SERUM Normal 0.70-1.20 [facility] Comment on above: Result Comment: DUPL ICATE ORDER Performed By: #### L 100.0100, L500.4050 ####[facility] [address] [place], [address] eGFR Normal >60 [facility] Comment on above: Result Comment: DUPL ICATE ORDER Performed By: #### L 100.0100, L500.4050 ####[facility] [address] [place], [address] GAP Normal 5-15 [facility] Comment on above: Result Comment: DUPL ICATE ORDER Performed By: #### L 100.0100, L500.4050 ####[facility] [address] [place], [address] GLU Normal 70-99 [facility] Comment on above: Result Comment: DUPL ICATE ORDER Performed By: #### L 100.0100, L500.4050 ####[facility] [address] [place], [address] Potassium Normal 3.3-5.1 [facility] Comment on above: Result Comment: DUPL ICATE ORDER Performed By: #### L 100.0100, L500.4050 ####[facility] [address] [place], [address] T BILI Normal 0.00-1.30 [facility] Comment on above: Result Comment: DUPL ICATE ORDER Performed By: #### L 100.0100, L500.4050 ####[facility] [address] [place], [address] T PROT Normal 5.9-8.4 [facility] Comment on above: Result Comment: DUPL ICATE ORDER Performed By: #### L 100.0100, L500.4050 ####[facility] [address] [place], [place], [id number] Comprehensive Metabolic Profil Normal 133-145 [facility] Comment on above: Result Comment: DUPL ICATE ORDER Performed By: #### L 100.0100, L500.4050 ####[facility] [address] [place], [address] Eosinophil percentageOrdered By: [facility] Rodriguez on 05-02-2025 Eosinophils/100 WBC (Bld) 1.0 % 0-5 [facility] Erythrocyte distribution wid th ratioOrdered By: [facility] Michael on 05-02-2025 Erythrocyte distribution width (RBC) [Ratio] 18.6 % High 11.6-14.6 [facility] Erythrocyte distribution wid th standard deviationOrdered By: [facility] Michael on 05-02-2025 Erythrocyte distribution width (RBC) [Ratio] 52.1 fl High 35.1-43.9 [facility] Ferritinon 05-02-2025 Ferritin [Mass/Vol] 279 ng/mL Normal 37-417 [facility] Comment on above: Performed By: #### L 503.6030, L503.6550, L100.0100, L501.5200, L501.2300, L500.4050 ####[facility] [address] [place], [place], [address] Glomerular filtration rate ( GFR) estimation/1.73 sq m using serum, plasma, or whole bOrdered By: Angela Rodriguez on 05-02-2025 GFR/1.73 sq M.predicted among non-blacks MDRD (S/P/Bld) [Vol rate/Area] 93 mL/min/{1.73_m2} >60 [facility] Hematocrit Auto (Bld) [Volum e fraction]Ordered By: Angela Rodriguez on 05-02-2025 Hematocrit (Bld) [Volume fraction] 34.8 % Low 40-54 [facility] Hemoglobin measurementOrdere d By: Angela Rodriguez on 05-02-2025 Hemoglobin (Bld) [Mass/Vol] 11.2 g/dL Low 13.0-16.5 [facility] Immature granulocytes/100 WB C Auto (Bld)Ordered By: Angela Rodriguez on 05-02-2025 Immature granulocytes/100 WBC (Bld) 4.600 % High 0.0-0.9 [facility] Iron measurement (mass/mass) Ordered By: Angela Rodriguez on 05-02-2025 Iron (Unsp spec) [Mass/Mass] 48 ug/dL Low 65-175 [facility] Iron+Iron Binding Capacityon 05-02-2025 Iron [Mass/Vol] 48 ug/dL Low 65-175 [facility] Comment on above: Performed By: #### L 503.6030, L503.6550, L100.0100, L501.5200, L501.2300, L500.4050 ####[facility] [address] [place], [address] IRON SATURATION 19.0 Normal 9-55 [facility] Comment on above: Performed By: #### L 503.6030, L503.6550, L100.0100, L501.5200, L501.2300, L500.4050 ####[facility] [address] [place], [address] TIBC 249 ug/dL Low 250-450 [facility] Comment on above: Performed By: #### L 503.6030, L503.6550, L100.0100, L501.5200, L501.2300, L500.4050 ####[facility] [address] [place], [address] UIBC 201 ug/dL Low 228-428 [facility] Comment on above: Performed By: #### L 503.6030, L503.6550, L100.0100, L501.5200, L501.2300, L500.4050 ####[facility] [address] [place], [address] MCV (mean corpuscular volume ) determinationOrdered By: Angela Rodriguez on 05-02-2025 MCV (RBC) [Entitic vol] 78.0 fL Low 80-94 [facility] Magnesiumon 05-02-2025 Magnesium [Mass/Vol] 1.9 mg/dL Normal 1.5-2.2 [facility] Comment on above: Performed By: #### L 503.6030, L503.6550, L100.0100, L501.5200, L501.2300, L500.4050 ####[facility] [address] [place], [place], [id number] Magnesium measurement (mass/ volume)Ordered By: Angela Rodriguez on 05-02-2025 Magnesium (Unsp spec) [Mass/Vol] 1.9 mg/dL 1.5-2.2 [facility] Mean corpuscular hemoglobin (MCH) determinationOrdered By: Angela Rodriguez on 05-02-2025 MCH (RBC) [Entitic mass] 25.1 pg Low 27.0-32.0 [facility] Monocyte percentageOrdered B y: Angela Rodriguez on 05-02-2025 Monocytes/100 WBC (Bld) 12.3 % High 0-10 [facility] Neutrophil percentageOrdered By: Angela Rodriguez on 05-02-2025 Neutrophils/100 WBC (Bld) 65.5 % 47-70 [facility] No Panel InformationOrdered By: Angela Rodriguez on 05-02-2025 Unsaturated Iron Binding Capacity 201 ug/dL Low 228-428 [facility] 16 U/L <38 [facility] 201 ug/dL Low 228-428 [facility] Oncology Visit Reporton 04-10 Oncology Visit Report Normal [facility] Phosphoruson 05-02-2025 Phosphate [Mass/Vol] 3.6 mg/dL Normal 2.7-4.5 [facility] Comment on above: Performed By: #### L 503.6030, L503.6550, L100.0100, L501.5200, L501.2300, L500.4050 ####[facility] [address] [place], [place], [id number] Platelet countOrdered By: Ivonne Rodriguez on 05-02-2025 Platelets (Bld) [#/Vol] 172 10*3/uL 150-450 [facility] Potassium measurement (mass/ volume)Ordered By: Angela Rodriguez on 05-02-2025 Potassium (Unsp spec) [Mass/Vol] 3.2 mmol/L Low 3.3-5.1 [facility] RBC Auto (Bld) [#/Vol]Ordere d By: Angela Rodriguez on 05-02-2025 RBC (Bld) [#/Vol] 4.46 10*6/uL Low 4.6-6.2 [facility] Serum creatinine measurement (mass/volume)Ordered By: Angela Rodriguez on 05-02-2025 Creatinine [Mass/Vol] 0.85 mg/dL 0.70-1.20 [facility] Serum globulin measurementOr dered By: Angela Rodriguez on 05-02-2025 Globulin (S) [Mass/Vol] 1.9 g/dL Low 2.2-4.2 [facility] Serum glucose measurement (m ass/volume)Ordered By: Angela Rodriguez on 05-02-2025 Glucose [Mass/Vol] 105 mg/dL High 70-99 [facility] Serum or plasma alanine kong otransferase (ALT) measurementOrdered By: Angela Rodriguez on 05-02-2025 ALT [Catalytic activity/Vol] 13 U/L <47 [facility] Serum or plasma albumin deangelo urement (mass/volume)Ordered By: Angela Rodriguez on 05-02-2025 Albumin [Mass/Vol] 3.4 g/dL 3.4-4.8 [facility] Serum or plasma albumin/glob ulin mass ratioOrdered By: Angela Rodriguez on 05-02-2025 Albumin/Globulin [Mass ratio] 1.9 {ratio} 0.9-2.4 [facility] Serum or plasma alkaline alie sphatase measurementOrdered By: Angela Rodriguez on 05-02-2025 ALP [Catalytic activity/Vol] 46 U/L 40-129 [facility] Serum or plasma calcium deangelo urement (mass/volume)Ordered By: Angela Rodriguez on 05-02-2025 Calcium [Mass/Vol] 8.5 mg/dL 7.6-11.0 [facility] Serum or plasma ferritin samantha surement (mass/volume)Ordered By: Angela Nelsonjohn on 05-02-2025 Ferritin [Mass/Vol] 279 ng/mL 37-417 [facility] Serum or plasma iron saturat ion measurement (mass fraction)Ordered By: Angela Nelsonjohn on 05-02-2025 Iron saturation [Mass fraction] 19.0 % 9-55 [facility] Serum or plasma urea nitroge n measurement (mass/volume)Ordered By: Angela Michael on 05-02-2025 Urea nitrogen [Mass/Vol] 15 mg/dL 4-19 [facility] Sodium levelOrdered By: Jackie Nelsonjohn on 05-02-2025 Sodium [Moles/Vol] 138 mmol/L 133-145 [facility] Total proteinOrdered By: Antoni Nelsonjohn on 05-02-2025 Protein [Mass/Vol] 5.3 g/dL Low 5.9-8.4 [facility] White blood cell (WBC) count Ordered By: Angela Nelsonjohn on 05-02-2025 WBC (Bld) [#/Vol] 5.9 10*3/uL 4.4-11.0 [facility] 37on 04-18-2025 37 Personalized Prevent ative Plan for Kenn Arshad - 04/18/2025 Medicare offers a range of preventative health benefits. Some of the tests and screenings are paid in full while others may be subject to a deductible, co-insurance, and / or copay. Some of these benefits include a comprehensive review of your medical history including lifestyle, illnesses that may run in your family, and various assessments and screenings as appropriate. After reviewing your medical record and screening and assessments performed today, your provider may have ordered immunizations, labs, imaging, and / or referrals for you. A list of these orders (if applicable) as well as your Preventative Care list are included within your After Visit Summary for your review. Other Preventative Recommendations: A preventive eye exam by an document imaging specialist is recommended every 1-2 years to screen for glaucoma, cataracts, macular degeneration, and other eye disorders. A preventive dental visit is recommended every 6 months. Try to get at least 150 minutes of exercise per week or 10,000 steps per day on a pedometer. You need 1200-1500mg of calcium and 6410-7239 international units of vitamin D per day. It is possible to meet your calcium requirement with diet alone, but a vitamin D supplement is usually necessary to meet this goal. When exposed to the sun, use a sunscreen that protects against both UVA and UVB radiation with an SPF of 30 or greater. Reapply every 2-3 hours or after sweating, drying off with a towel, or swimming. Always wear a seat belt when traveling in a car. Always wear a helmet when riding a bicycle or a motorcycle Normal [facility] Office Visiton 04-18-2025 Follow-up visit [id number] Mirna Arshad robinson Nava 1955 M Date Provider Department Center 04/18/2025 JACOB COSME [facility] Family History Problem Relation Age of Onset Coronary artery disease Mother 65 Comments: CABG Stroke Mother Comments: age 77 Lung cancer Mother Coronary artery disease Father Comments: age 50 [place] - smoker Coronary artery disease Sister Comments: CABG Diabetes Sister Comments: alive age 64 No Known Problems Sister No Known Problems Sister No Known Problems Sister No Known Problems Brother Coronary artery disease Brother Comments: age 47 [place] Family Status - Relation Status Age at Mother 77 Father 50 Sister Alive Sister Alive Sister Alive Sister Alive Brother Alive Brother 47 Level of Service:[id number] [place], SUBSEQ VISIT Reason for Visit and Comments: Medicare Annual Wellness Visit Subsequent [677] Normal [facility] Progress Noteon 04-18-2025 Progress Note After obtaining cons ent, and per orders of Dr. Jennings , injection of Pneumococcal 20 given in Right arm by Monalisa Sanford . Patient instructed to remain in clinic for 20 minutes afterwards, and to report any adverse reaction to me immediately. Normal [facility] Progress Note [facility] - [address] [facility] [address] Dept: [phone] Dept Chief Complaint: Kenn Arshad is an 69 y.o. male here for an annual wellness visit. With multiple health problems presents for annual wellness exam. Recently was hospitalized for repeat EGD was found to have celiac disease. Watching his diet. Received IV iron for chronic iron deficiency anemia feeling a lot better. Weight is stable off prednisone. Will be getting consideration for restarting Keytruda for his metastatic lung and renal cancer. 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 Current Medications[1] Also reviewed during this visit: Surg Hx Fam Hx The following health maintenance schedule was reviewed with the patient and provided in printed form in the after visit summary: Health Maintenance Topic Date Due Echocardiogram Never done Medicare Annual Wellness (AWV) Never done Derm Melanoma Skin Check Never done Diabetes: Foot Exam Never done Diabetes: Retinopathy Screening Never done Diabetes: Dental Exam Never done Hepatitis C Screening Never done DTaP/Tdap/Td Vaccines (1 - Tdap) Never done Zoster Vaccines (1 of 2) Never done RSV Immunization for Adults (1 - Risk 60-74 years 1-dose series) Never done Diabetes: Hemoglobin A1C 05/17/2022 Diabetes: Urine Albumin-Creatinine Ratio for Kidney Health 08/21/2022 Colorectal Cancer Screening 02/22/2024 COVID-19 Vaccine ( season) 2024 Lipid Panel 01/08/2025 Creatinine Level 12/30/2025 Potassium Level 12/30/2025 Diabetes: Estimated Glomerular Filtration Rate for Kidney Health 12/30/2025 Depression Screening 04/18/2026 Influenza Vaccine Completed Pneumococcal Vaccine: 50+ Years Completed RSV Immunization under 20 Months Aged Out HIB Vaccines Aged Out Hepatitis B Vaccines Aged Out IPV Vaccines Aged Out Hepatitis A Vaccines Aged Out Meningococcal Vaccine Aged Out Rotavirus Vaccines Aged Out HPV Vaccines Aged Out Meningococcal B Vaccine Aged Out List of current healthcare providers: Patient Care Team: Jacob Jennings DO as PCP - General Orders Placed This Encounter Procedures Pneumococcal conjugate vaccine 20-valent IM (PREVNAR 20) Review of Systems reviewed chart again in length. Feeling better. Weight is up. No heartburn. No recent emesis or diarrhea. Blood count is improving. No recent angina or chest pain. Chronic cough is unchanged. Worried about recurrent risk for pneumonia. Will be getting some type of chemotherapy started up. Overall feeling pretty positive but having persistent right shoulder numbness and right arm tingling despite his cervical spine surgery last December. He would like to know what is wrong. No substantial neck or radicular pain just tingling the upper extremity. His strength is preserved. No increased with Valsalva maneuvers. He has had MRI imaging of his brain. Concerned about rotator cuff issues. Physical Exam alert and cooperative. No acute distress. Well-hydrated. Nonicteric. He appears healthier. No JVD adenopathy or thyroid lesions. No carotid bruits. Heart is regular gallops or murmurs. Lungs have upper rhonchi that clears somewhat with cough. Abdomen obese nontender without pain hepatosplenomegaly masses or bruits. No adenopathy. Extremities have some scaliness and skin dryness but no overt lesions. Some venous insufficiency is noted. Pulses are adequate. Negative Spurling's. There is no motor loss of the arms or legs. All rotator cuff exam is normal. Negative drop arm empty can sign. He can push off his buttock and touch his mid thoracic spine. Biceps intact. Objective : BP 130/70 Pulse 88 Temp 36.6 ?C (97.9 ?F) (Temporal) Ht 5' 5 (1.651 m) Wt 172 lb (78 kg) SpO2 95% BMI 28.62 kg/m? No results found. Subjective : Health Risk Assessment: General: General In general, how would you say your health is?: Good In the past 7 days, have you experienced any of the following: New or Increased Pain, New or Increased Fatigue, Loneliness, Social Isolation, Stress or Anger?: No Do you get the social and emotional suppport you need?: Yes Health Habits/Nutrition: Health Habits / Nutrition On average, how many days per week do you engage in moderate to strenou (more content not included)... Normal [facility] CBC W/Diff, Automatedon 06-0 PATH REV Reviewed [facility] Comment on above: Result Comment: SEE REPORT IN PATIENT'S EMR AMENDED REPORT 04/14/25 1416 PATH REV previously reported as: March Performed By: #### L 100.0100, L500.2500 ####[facility] [address] [place], [place], [id number] Absolute lymphocyte countOrd ered By: Angela Rodriguez on 04-12-2025 Lymphocytes Auto (Unsp spec) [#/Vol] 0.43 10*3/uL Low 0.83-4.51 [facility] Anion gap in Serum or Plasma Ordered By: Angela Rodriguez on 04-12-2025 Anion gap [Moles/Vol] 12 mmol/L 5-15 [facility] Automated lymphocyte count a s percentage of total leukocytesOrdered By: Angela Rodriguez on 04-12-2025 Lymphocytes/100 WBC Auto (Unsp spec) 6.4 % Low 19-41 [facility] BUN/creatinine ratioOrdered By: [facility] on 04-12-2025 Urea nitrogen/Creatinine [Mass ratio] 14.8 mg/mg 10-20 [facility] Basophil percentageOrdered B y: [facility] on 04-12-2025 Basophils/100 WBC (Bld) 0.3 % 0-1 [facility] Bilirubin, totalOrdered By: [facility] Rodriguez on 04-12-2025 Bilirubin [Mass/Vol] 0.63 mg/dL 0.00-1.30 [facility] Blood polychromasia detectio n by light microscopyOrdered By: [facility] Rodriguez on 04-12-2025 Polychromasia LM Ql (Bld) RARE [facility] CBC W/Diff, Automatedon Anisocytosis Ql (Bld) 1+ Normal [facility] Comment on above: Performed By: #### L 500.4050, L100.0100, L501.2300 ####[facility] [address] [place], [place], [id number] OVALOCYTE 1+ Normal [facility] Comment on above: Performed By: #### L 500.4050, L100.0100, L501.2300 ####[facility] [address] [place], [address] PLT EST SLT DEC Normal ADEQ [facility] Comment on above: Performed By: #### L 500.4050, L100.0100, L501.2300 ####[facility] [address] [place], [address] POLYCHROMASIA RARE Normal [facility] Comment on above: Performed By: #### L 500.4050, L100.0100, L501.2300 ####[facility] [address] [place], [address] TEAR DROP RARE Normal [facility] Comment on above: Performed By: #### L 500.4050, L100.0100, L501.2300 ####[facility] [address] [place], [address] Carbon dioxide, total [Moles /volume] in Central venous bloodOrdered By: Angela Rodriguez on 04-12-2025 CO2 [Moles/Vol] 18.6 mmol/L Low 21.0-32.0 [facility] Chloride assayOrdered By: Ivonne Rodriguez on 04-12-2025 Chloride [Moles/Vol] 107 mmol/L 98-108 [facility] Comprehensive Metabolic Prof ilon 04-12-2025 Albumin [Mass/Vol] 4.0 g/dL Normal 3.4-4.8 [facility] Comment on above: Performed By: #### L 500.4050, L100.0100, L501.2300 ####[facility] [address] [place], [address] Albumin/Globulin [Mass ratio] 2.1 {ratio} Normal 0.9-2.4 [facility] Comment on above: Performed By: #### L 500.4050, L100.0100, L501.2300 ####[facility] [address] [place], [address] ALK PHOS 51 U/L Normal 40-129 [facility] Comment on above: Performed By: #### L 500.4050, L100.0100, L501.2300 ####[facility] [address] [place], [address] ALT [Catalytic activity/Vol] 24 U/L Normal <=46 [facility] Comment on above: Performed By: #### L 500.4050, L100.0100, L501.2300 ####[facility] [address] [place], [address] AST [Catalytic activity/Vol] 22 U/L Normal <=37 [facility] Comment on above: Performed By: #### L 500.4050, L100.0100, L501.2300 ####[facility] [address] [place], [address] Bilirubin [Mass/Vol] 0.63 mg/dL Normal 0.00-1.30 [facility] Comment on above: Performed By: #### L 500.4050, L100.0100, L501.2300 ####[facility] [address] [place], [address] BUN/CRE 14.8 RATIO Normal 10-20 [facility] Comment on above: Performed By: #### L 500.4050, L100.0100, L501.2300 ####[facility] [address] [place], [address] Calcium [Mass/Vol] 8.7 mg/dL Normal 7.6-11.0 [facility] Comment on above: Performed By: #### L 500.4050, L100.0100, L501.2300 ####[facility] [address] [place], [address] Chloride [Moles/Vol] 107 mmol/L Normal 98-108 [facility] Comment on above: Performed By: #### L 500.4050, L100.0100, L501.2300 ####[facility] [address] [place], [address] CO2 [Moles/Vol] 18.6 mmol/L Low 21.0-32.0 [facility] Comment on above: Performed By: #### L 500.4050, L100.0100, L501.2300 ####[facility] [address] [place], [address] Creatinine [Mass/Vol] 0.85 mg/dL Normal 0.70-1.20 [facility] Comment on above: Performed By: #### L 500.4050, L100.0100, L501.2300 ####[facility] [address] [place], [address] ECRCL 76.58 ml/min Normal 50-250 [facility] Comment on above: Performed By: #### L 500.4050, L100.0100, L501.2300 ####[facility] [address] [place], [address] GAP 12 Normal 5-15 [facility] Comment on above: Performed By: #### L 500.4050, L100.0100, L501.2300 ####[facility] [address] [place], [address] GFR/1.73 sq M.predicted among non-blacks MDRD (S/P/Bld) [Vol rate/Area] 93 mL/min/{1.73_m2} Normal >60 [facility] Comment on above: Result Comment: mL/m in/1.73m2 CKD-EPI Creatinine Equation (2020) Performed By: #### L 500.4050, L100.0100, L501.2300 ####[facility] [address] [place], [address] Globulin (S) [Mass/Vol] 2.0 g/dL Low 2.2-4.2 [facility] Comment on above: Performed By: #### L 500.4050, L100.0100, L501.2300 ####[facility] [address] [place], [address] Glucose [Mass/Vol] 113 mg/dL High 70-99 [facility] Comment on above: Performed By: #### L 500.4050, L100.0100, L501.2300 ####[facility] [address] [place], [address] Potassium [Moles/Vol] 4.0 mmol/L Normal 3.3-5.1 [facility] Comment on above: Performed By: #### L 500.4050, L100.0100, L501.2300 ####[facility] [address] [place], [address] Sodium [Moles/Vol] 138 mmol/L Normal 133-145 [facility] Comment on above: Performed By: #### L 500.4050, L100.0100, L501.2300 ####[facility] [address] [place], [address] T PROT 6.0 g/dL Normal 5.9-8.4 [facility] Comment on above: Performed By: #### L 500.4050, L100.0100, L501.2300 ####[facility] [address] [place], [address] Urea nitrogen [Mass/Vol] 13 mg/dL Normal 4-19 [facility] Comment on above: Performed By: #### L 500.4050, L100.0100, L501.2300 ####[facility] [address] [place], [address] Eosinophil percentageOrdered By: Angela Rodriguez on 04-12-2025 Eosinophils/100 WBC (Bld) 1.0 % 0-5 [facility] Erythrocyte distribution wid th ratioOrdered By: [facility] Michael on 04-12-2025 Erythrocyte distribution width (RBC) [Ratio] 21.5 % High 11.6-14.6 [facility] Erythrocyte distribution wid th standard deviationOrdered By: [facility] Michael on 04-12-2025 Erythrocyte distribution width (RBC) [Ratio] 60.8 fl High 35.1-43.9 [facility] Glomerular filtration rate ( GFR) estimation/1.73 sq m using serum, plasma, or whole bOrdered By: [facility] Rodriguez on 04-12-2025 GFR/1.73 sq M.predicted among non-blacks MDRD (S/P/Bld) [Vol rate/Area] 93 mL/min/{1.73_m2} >60 [facility] Hematocrit Auto (Bld) [Volum e fraction]Ordered By: [facility] on 04-12-2025 Hematocrit (Bld) [Volume fraction] 35.6 % Low 40-54 [facility] Hemoglobin measurementOrdere d By: [facility] on 04-12-2025 Hemoglobin (Bld) [Mass/Vol] 11.4 g/dL Low 13.0-16.5 [facility] Immature granulocytes/100 WB C Auto (Bld)Ordered By: [facility] on 04-12-2025 Immature granulocytes/100 WBC (Bld) 1.500 % High 0.0-0.9 [facility] Laboratory - Hematology and Cell countsOrdered By: [facility] Michael on 04-12-2025 Anisocytosis Ql (Bld) 1+ [facility] MCV (mean corpuscular volume ) determinationOrdered By: [facility] Michael on 04-12-2025 MCV (RBC) [Entitic vol] 78.6 fL Low 80-94 [facility] Mean corpuscular hemoglobin (MCH) determinationOrdered By: [facility] on 04-12-2025 MCH (RBC) [Entitic mass] 25.2 pg Low 27.0-32.0 [facility] Monocyte percentageOrdered B y: [facility] Michael on 04-12-2025 Monocytes/100 WBC (Bld) 4.5 % 0-10 [facility] Neutrophil percentageOrdered By: Angela Rodriguez on 04-12-2025 Neutrophils/100 WBC (Bld) 86.3 % High 47-70 [facility] No Panel InformationOrdered By: Angela Rodriguez on 04-12-2025 1+ [facility] 22 U/L <38 [facility] Oncology Visit Reporton 06-0 Oncology Visit Report Normal [facility] Ovalocyte detectionOrdered B y: Angela Rodriguez on 04-12-2025 Ovalocytes LM Ql (Bld) 1+ [facility] Phosphoruson 04-12-2025 Phosphate [Mass/Vol] 3.3 mg/dL Normal 2.7-4.5 [facility] Comment on above: Performed By: #### L 500.4050, L100.0100, L501.2300 ####[facility] [address] [place], [place], [id number] Platelet countOrdered By: Ivonne Rodriguez on 04-12-2025 Platelets (Bld) [#/Vol] 109 10*3/uL Low 150-450 [facility] Platelet estimateOrdered By: Angela Rodriguez on 04-12-2025 Platelets LM Ql (Bld) SLT DEC ADEQ [facility] Potassium measurement (mass/ volume)Ordered By: Angela Rodriguez on 04-12-2025 Potassium (Unsp spec) [Mass/Vol] 4.0 mmol/L 3.3-5.1 [facility] RBC Auto (Bld) [#/Vol]Ordere d By: Angela Rodriguez on 04-12-2025 RBC (Bld) [#/Vol] 4.53 10*6/uL Low 4.6-6.2 [facility] Serum creatinine measurement (mass/volume)Ordered By: Angela Rodriguez on 04-12-2025 Creatinine [Mass/Vol] 0.85 mg/dL 0.70-1.20 [facility] Serum globulin measurementOr dered By: Angela Rodriguez on 04-12-2025 Globulin (S) [Mass/Vol] 2.0 g/dL Low 2.2-4.2 [facility] Serum glucose measurement (m ass/volume)Ordered By: Angela Rodriguez on 04-12-2025 Glucose [Mass/Vol] 113 mg/dL High 70-99 [facility] Serum or plasma alanine kong otransferase (ALT) measurementOrdered By: Angela Rodriguez on 04-12-2025 ALT [Catalytic activity/Vol] 24 U/L <47 [facility] Serum or plasma albumin deangelo urement (mass/volume)Ordered By: Angela Rodriguez on 04-12-2025 Albumin [Mass/Vol] 4.0 g/dL 3.4-4.8 [facility] Serum or plasma albumin/glob ulin mass ratioOrdered By: Angela Rodriguez on 04-12-2025 Albumin/Globulin [Mass ratio] 2.1 {ratio} 0.9-2.4 [facility] Serum or plasma alkaline alie sphatase measurementOrdered By: Angela Rodriguez on 04-12-2025 ALP [Catalytic activity/Vol] 51 U/L 40-129 [facility] Serum or plasma calcium deangelo urement (mass/volume)Ordered By: Angela Rodriguez on 04-12-2025 Calcium [Mass/Vol] 8.7 mg/dL 7.6-11.0 [facility] Serum or plasma urea nitroge n measurement (mass/volume)Ordered By: Angela Rodriguez on 04-12-2025 Urea nitrogen [Mass/Vol] 13 mg/dL 4-19 [facility] Sodium levelOrdered By: Jackie Rodriguez on 04-12-2025 Sodium [Moles/Vol] 138 mmol/L 133-145 [facility] Teardrop cell detectionOrder ed By: Angela Rodriguez on 04-12-2025 Dacrocytes LM Ql (Bld) RARE [facility] Total proteinOrdered By: Antoni Rodriguez on 04-12-2025 Protein [Mass/Vol] 6.0 g/dL 5.9-8.4 [facility] White blood cell (WBC) count Ordered By: Angela Rodriguez on 04-12-2025 WBC (Bld) [#/Vol] 6.7 10*3/uL 4.4-11.0 [facility] 36on 03-31-2025 36 Wrong office. Normal [facility] 36on 03-30-2025 36 Name of caller: Avery lam Contact phone number: [phone] Relationship to Patient: [facility] PT Provider: Dr. Jennings Practice: [facility] Chief Complaint/Reason for Call: Bradley is calling from [facility] to let Dr. Jennings know the patients plan of care. The patient will be seen for 4 weeks at 1 time per week for Functional Mobility Training. Bradley states if Dr. Jennings has further questions he can be reached at [phone]. Best time of day caller can be reached: Any Patient advised that office/PCP has 24-48 business hours to return their call: No Normal [facility] Gastroenterology Visit Repor ton 03-30-2025 Gastroenterology Visit Report Normal [facility] Absolute lymphocyte countOrd ered By: Verónica Meadows on 03-29-2025 Lymphocytes Auto (Unsp spec) [#/Vol] 0.45 10*3/uL Low 0.83-4.51 [facility] Anion gap in Serum or Plasma Ordered By: Angela Rodriguez on 03-29-2025 Anion gap [Moles/Vol] 11 mmol/L 5-15 [facility] Automated lymphocyte count a s percentage of total leukocytesOrdered By: Verónica Meadows on 03-29-2025 Lymphocytes/100 WBC Auto (Unsp spec) 3.9 % Low 19-41 [facility] BUN/creatinine ratioOrdered By: Angela Rodriguez on 03-29-2025 Urea nitrogen/Creatinine [Mass ratio] 21.6 mg/mg High 10-20 [facility] Basic Metabolic Profile (BMP )on 03-29-2025 BUN/CRE 21.6 RATIO High - [facility] Comment on above: Performed By: #### L 501.2300, L500.2500, L501.5200 ####[facility] [address] [place], [address] Calcium [Mass/Vol] 8.5 mg/dL Normal 7.6-11.0 [facility] Comment on above: Performed By: #### L 501.2300, L500.2500, L501.5200 ####[facility] [address] [place], [address] Chloride [Moles/Vol] 107 mmol/L Normal 98-108 [facility] Comment on above: Performed By: #### L 501.2300, L500.2500, L501.5200 ####[facility] [address] [place], [address] CO2 [Moles/Vol] 18.2 mmol/L Low 21.0-32.0 [facility] Comment on above: Performed By: #### L 501.2300, L500.2500, L501.5200 ####[facility] [address] [place], [address] Creatinine [Mass/Vol] 0.80 mg/dL Normal 0.70-1.20 [facility] Comment on above: Performed By: #### L 501.2300, L500.2500, L501.5200 ####[facility] [address] [place], [address] ECRCL 82.10 ml/min Normal 50-250 [facility] Comment on above: Performed By: #### L 501.2300, L500.2500, L501.5200 ####[facility] [address] [place], [address] GAP 11 Normal 5-15 [facility] Comment on above: Performed By: #### L 501.2300, L500.2500, L501.5200 ####[facility] [address] [place], [address] GFR/1.73 sq M.predicted among non-blacks MDRD (S/P/Bld) [Vol rate/Area] 95 mL/min/{1.73_m2} Normal >60 [facility] Comment on above: Result Comment: mL/m in/1.73m2 CKD-EPI Creatinine Equation (2020) Performed By: #### L 501.2300, L500.2500, L501.5200 ####[facility] [address] [place], [address] Glucose [Mass/Vol] 110 mg/dL High 70-99 [facility] Comment on above: Performed By: #### L 501.2300, L500.2500, L501.5200 ####[facility] [address] [place], [address] Potassium [Moles/Vol] 4.0 mmol/L Normal 3.3-5.1 [facility] Comment on above: Performed By: #### L 501.2300, L500.2500, L501.5200 ####[facility] [address] [place], [address] Sodium [Moles/Vol] 136 mmol/L Normal 133-145 [facility] Comment on above: Performed By: #### L 501.2300, L500.2500, L501.5200 ####[facility] [address] [place], [address] Urea nitrogen [Mass/Vol] 17 mg/dL Normal 4-19 [facility] Comment on above: Performed By: #### L 501.2300, L500.2500, L501.5200 ####[facility] [address] [place], [address] Basophil percentageOrdered B y: Verónica Meadows on 03-29-2025 Basophils/100 WBC (Bld) 0.3 % 0-1 [facility] CBC W/Diff, Automatedon 03-10 Anisocytosis Ql (Bld) 1+ Normal [facility] Comment on above: Performed By: #### L 100.0100 ####[facility] [address] [place], [address] Carbon dioxide, total [Moles /volume] in Central venous bloodOrdered By: Angela Rodriguez on 03-29-2025 CO2 [Moles/Vol] 18.2 mmol/L Low 21.0-32.0 [facility] Chloride assayOrdered By: Ivonne Rodriguez on 03-29-2025 Chloride [Moles/Vol] 107 mmol/L 98-108 [facility] Eosinophil percentageOrdered By: Verónica Meadows on 03-29-2025 Eosinophils/100 WBC (Bld) 0.1 % 0-5 [facility] Erythrocyte distribution wid th ratioOrdered By: Verónica Meadows on 03-29-2025 Erythrocyte distribution width (RBC) [Ratio] 20.3 % High 11.6-14.6 [facility] Erythrocyte distribution wid th standard deviationOrdered By: Verónica Meadows on 03-29-2025 Erythrocyte distribution width (RBC) [Ratio] 53.1 fl High 35.1-43.9 [facility] Glomerular filtration rate ( GFR) estimation/1.73 sq m using serum, plasma, or whole bOrdered By: Angela Rodriguez on 03-29-2025 GFR/1.73 sq M.predicted among non-blacks MDRD (S/P/Bld) [Vol rate/Area] 95 mL/min/{1.73_m2} >60 [facility] Hematocrit Auto (Bld) [Volum e fraction]Ordered By: Verónica Meadows on 03-29-2025 Hematocrit (Bld) [Volume fraction] 32.8 % Low 40-54 [facility] Hemoglobin measurementOrdere d By: Verónica Meadows on 03-29-2025 Hemoglobin (Bld) [Mass/Vol] 10.2 g/dL Low 13.0-16.5 [facility] Immature granulocytes/100 WB C Auto (Bld)Ordered By: Verónica Meadows on 03-29-2025 Immature granulocytes/100 WBC (Bld) 4.900 % High 0.0-0.9 [facility] MCV (mean corpuscular volume ) determinationOrdered By: Verónica Meadows on 03-29-2025 MCV (RBC) [Entitic vol] 76.5 fL Low 80-94 [facility] Magnesiumon 03-29-2025 Magnesium [Mass/Vol] 1.8 mg/dL Normal 1.5-2.2 [facility] Comment on above: Performed By: #### L 501.2300, L500.2500, L501.5200 ####[facility] [address] [place], [address] Magnesium measurement (mass/ volume)Ordered By: Angela Rodriguez on 03-29-2025 Magnesium (Unsp spec) [Mass/Vol] 1.8 mg/dL 1.5-2.2 [facility] Mean corpuscular hemoglobin (MCH) determinationOrdered By: Verónica Meadows on 03-29-2025 MCH (RBC) [Entitic mass] 23.8 pg Low 27.0-32.0 [facility] Monocyte percentageOrdered B y: Verónica Meadows on 03-29-2025 Monocytes/100 WBC (Bld) 3.4 % 0-10 [facility] Neutrophil percentageOrdered By: Verónica Meadows on 03-29-2025 Neutrophils/100 WBC (Bld) 87.4 % High 47-70 [facility] Oncology Visit Reporton 03-10 Oncology Visit Report Normal [facility] Phosphoruson 03-29-2025 Phosphate [Mass/Vol] 2.6 mg/dL Low 2.7-4.5 [facility] Comment on above: Performed By: #### L 501.2300, L500.2500, L501.5200 ####[facility] [address] [place], [place], [id number] Platelet countOrdered By: Pk Meadows on 03-29-2025 Platelets (Bld) [#/Vol] 230 10*3/uL 150-450 [facility] Potassium measurement (mass/ volume)Ordered By: Angela Rodriguez on 03-29-2025 Potassium (Unsp spec) [Mass/Vol] 4.0 mmol/L 3.3-5.1 [facility] RBC Auto (Bld) [#/Vol]Ordere d By: Verónica HaDori on 03-29-2025 RBC (Bld) [#/Vol] 4.29 10*6/uL Low 4.6-6.2 [facility] Serum creatinine measurement (mass/volume)Ordered By: Angela Rodriguez on 03-29-2025 Creatinine [Mass/Vol] 0.80 mg/dL 0.70-1.20 [facility] Serum glucose measurement (m ass/volume)Ordered By: Angela Rodriguez on 03-29-2025 Glucose [Mass/Vol] 110 mg/dL High 70-99 [facility] Serum or plasma calcium deangelo urement (mass/volume)Ordered By: Angela Rodriguez on 03-29-2025 Calcium [Mass/Vol] 8.5 mg/dL 7.6-11.0 [facility] Serum or plasma urea nitroge n measurement (mass/volume)Ordered By: Angela Rodriguez on 03-29-2025 Urea nitrogen [Mass/Vol] 17 mg/dL 4-19 [facility] Sodium levelOrdered By: Jackie Rodriguez on 03-29-2025 Sodium [Moles/Vol] 136 mmol/L 133-145 [facility] White blood cell (WBC) count Ordered By: Verónica Meadows on 03-29-2025 WBC (Bld) [#/Vol] 11.6 10*3/uL High 4.4-11.0 [facility] 36on 03-27-2025 36 Recent Visits Date Type Provider Dept 02/21/25 Office Visit Jacob Jennings DO [facility] 12/30/24 Office Visit Jacob Jennings DO [facility] 12/06/24 Office Visit Jacob Jennings DO [facility] 10/20/24 Office Visit Jacob Jennings DO [facility] 09/19/24 Office Visit Jacob Jennings DO [facility] 04/19/24 Office Visit Jacob Jennings DO [facility] Showing recent visits within past 365 days and meeting all other requirements Future Appointments Date Type Provider Dept 04/18/25 Appointment Jacob Jennings DO [facility] Showing future appointments within next 90 days and meeting all other requirements Requested Prescriptions Pending Prescriptions Disp Refills amLODIPine (Norvasc) 10 MG tablet [Pharmacy Med Name: AMLODIPINE BESYLATE 10 MG TAB] 90 tablet 1 Sig: TAKE 1 TABLET (10 MG) BY MOUTH DAILY Provider: Jacob Jennings DO Verified pharmacy: yes Verified day(s) supplied: yes Verified refill(s) needed (previous prescription showing no refills in chart): Yes Have you received any controlled medications from any other provider? N/A Overdue for visit: No If yes - patient scheduled? Yes Most recent labs completed in chart? Yes Hypertension: Lab Results Component Value Date NA 134 (L) 12/30/2024 K 4.1 12/30/2024 EGFR 71.0 12/30/2024 BUN 7 (L) 12/30/2024 CREATININE 1.11 12/30/2024 [facility] 36 Spoke with Dahiana nava advised. [place] [address] Spoke with Katharina archuleta nd she voiced understanding. [place] [address] Name of caller: Zain lora Contact phone number: [phone] Relationship to Patient: [facility] health Provider: Dr Jennings Practice: [facility] Chief Complaint/Reason for Call: Caller is requesting plan of care for the patient, nursing twice a week for 1 week then once a week for 3 weeks. Caller also wanted to report some discrepancies in the patient medications: Coreg and albuterol has diminishing reasons and the Coreg and apixaban has diminishing reasons. Please advise. Thank you. Best time of day caller can be reached: any Patient advised that office/PCP has 24-48 business hours to return their call: No Normal [facility] CBC W/Diff, Automatedon 05-1 Absolute Neut Normal 2.0-7.7 [facility] Comment on above: Result Comment: Canc elled via OM: Order cancelled - Patient discharged Performed By: #### L 100.0100 ####[facility] [address] [place], [address] HCT Normal 40-54 [facility] Comment on above: Result Comment: Canc elled via OM: Order cancelled - Patient discharged Performed By: #### L 100.0100 ####[facility] [address] [place], [address] HGB Normal 13.0-16.5 [facility] Comment on above: Result Comment: Canc elled via OM: Order cancelled - Patient discharged Performed By: #### L 100.0100 ####[facility] [address] [place], [address] MCH Normal 27.0-32.0 [facility] Comment on above: Result Comment: Canc elled via OM: Order cancelled - Patient discharged Performed By: #### L 100.0100 ####[facility] [address] [place], [address] MCHC Normal 32-36 [facility] Comment on above: Result Comment: Canc elled via OM: Order cancelled - Patient discharged Performed By: #### L 100.0100 ####[facility] [address] [place], [address] MCV Normal 80-94 [facility] Comment on above: Result Comment: Canc elled via OM: Order cancelled - Patient discharged Performed By: #### L 100.0100 ####[facility] [address] [place], [address] NEUT% Normal 47-70 [facility] Comment on above: Result Comment: Canc elled via OM: Order cancelled - Patient discharged Performed By: #### L 100.0100 ####[facility] [address] [place], [address] PLT Normal 150-450 [facility] Comment on above: Result Comment: Canc elled via OM: Order cancelled - Patient discharged Performed By: #### L 100.0100 ####[facility] [address] [place], [address] RBC Normal 4.6-6.2 [facility] Comment on above: Result Comment: Canc elled via OM: Order cancelled - Patient discharged Performed By: #### L 100.0100 ####[facility] [address] [place], [address] RDW CV Normal 11.6-14.6 [facility] Comment on above: Result Comment: Canc elled via OM: Order cancelled - Patient discharged Performed By: #### L 100.0100 ####[facility] [address] [place], [address] RDW SD Normal 35.1-43.9 [facility] Comment on above: Result Comment: Canc elled via OM: Order cancelled - Patient discharged Performed By: #### L 100.0100 ####[facility] [address] [place], [address] WBC Normal 4.4-11.0 [facility] Comment on above: Result Comment: Canc elled via OM: Order cancelled - Patient discharged Performed By: #### L 100.0100 ####[facility] [address] [place], [address] Respiratory Cultureon 2024 RESPC Normal [facility] Comment on above: Performed By: #### M 100.2400, M100.2000 ####[facility] [address] [place], [address] 36on 03-24-2025 36 Name of caller: Jose lieberman with [facility] Contact phone number: [phone] Relationship to Patient: coordinator Provider: Jacob Jennings DO Practice: [facility] Chief Complaint/Reason for Call: Pt being discharged today, requesting a callback to see if PCP will follow for home care: assisted and physical therapy. Best time of day caller can be reached: any Patient advised that office/PCP has 24-48 business hours to return their call: Yes Normal [facility] Absolute lymphocyte countOrd ered By: Emmanuel Kaiser on 03-24-2025 Lymphocytes Auto (Unsp spec) [#/Vol] 0.13 10*3/uL Low 0.83-4.51 [facility] Absolute neutrophil countOrd ered By: Emmanuel Kaiser on 03-24-2025 Neutrophils (Bld) [#/Vol] 2.3 10*3/uL 2.0-7.7 [facility] Anion gap in Serum or Plasma Ordered By: Emmanuel Kaiser on 03-24-2025 Anion gap [Moles/Vol] 8 mmol/L 5-15 [facility] BUN/creatinine ratioOrdered By: Emmanuel Kaiser on 03-24-2025 Urea nitrogen/Creatinine [Mass ratio] 20.8 mg/mg High 10-20 [facility] Basic Metabolic Profile (BMP )on 03-24-2025 BUN/CRE 20.8 RATIO High - [facility] Comment on above: Performed By: #### L 100.0100, L500.2500 ####[facility] [address] [place], [address] Calcium [Mass/Vol] 8.0 mg/dL Normal 7.6-11.0 [facility] Comment on above: Performed By: #### L 100.0100, L500.2500 ####[facility] [address] [place], [address] Chloride [Moles/Vol] 112 mmol/L High 98-108 [facility] Comment on above: Performed By: #### L 100.0100, L500.2500 ####[facility] [address] [place], [address] CO2 [Moles/Vol] 17.9 mmol/L Low 21.0-32.0 [facility] Comment on above: Performed By: #### L 100.0100, L500.2500 ####[facility] [address] [place], [address] Creatinine [Mass/Vol] 0.83 mg/dL Normal 0.70-1.20 [facility] Comment on above: Performed By: #### L 100.0100, L500.2500 ####[facility] [address] [place], [address] ECRCL 80.11 ml/min Normal 50-250 [facility] Comment on above: Performed By: #### L 100.0100, L500.2500 ####[facility] [address] [place], [address] GAP 8 Normal 5-15 [facility] Comment on above: Performed By: #### L 100.0100, L500.2500 ####[facility] [address] [place], [address] GFR/1.73 sq M.predicted among non-blacks MDRD (S/P/Bld) [Vol rate/Area] 94 mL/min/{1.73_m2} Normal >60 [facility] Comment on above: Result Comment: mL/m in/1.73m2 CKD-EPI Creatinine Equation (2020) Performed By: #### L 100.0100, L500.2500 ####[facility] [address] [place], [address] Glucose [Mass/Vol] 232 mg/dL High 70-99 [facility] Comment on above: Performed By: #### L 100.0100, L500.2500 ####[facility] [address] [place], [address] Potassium [Moles/Vol] 3.6 mmol/L Normal 3.3-5.1 [facility] Comment on above: Performed By: #### L 100.0100, L500.2500 ####[facility] [address] [place], [address] Sodium [Moles/Vol] 139 mmol/L Normal 133-145 [facility] Comment on above: Performed By: #### L 100.0100, L500.2500 ####[facility] [address] [place], [address] Urea nitrogen [Mass/Vol] 17 mg/dL Normal 4-19 [facility] Comment on above: Performed By: #### L 100.0100, L500.2500 ####[facility] [address] [place], [address] Blood lymphocytes/100 leukoc ytesOrdered By: Emmanuel Kaiser on 03-24-2025 Lymphocytes/100 WBC (Bld) 5 % Low 19-41 [facility] Blood monocytes/100 leukocyt esOrdered By: Emmanuel Kaiser on 03-24-2025 Monocytes/100 WBC (Bld) 1 % 0-10 [facility] Blood segmented neutrophils/ 100 leukocytesOrdered By: Emmanuel Kaiser on 03-24-2025 Segmented neutrophils/100 WBC (Bld) 92 % High 47-70 [facility] Carbon dioxide, total [Moles /volume] in Central venous bloodOrdered By: Emmanuel Kaiser on 03-24-2025 CO2 [Moles/Vol] 17.9 mmol/L Low 21.0-32.0 [facility] Chloride assayOrdered By: Nicole Kaiser on 03-24-2025 Chloride [Moles/Vol] 112 mmol/L High 98-108 [facility] Discharge Instructionon 03-09 Discharge Instruction Normal [facility] Erythrocyte distribution wid th ratioOrdered By: Emmanuel Kaiser on 03-24-2025 Erythrocyte distribution width (RBC) [Ratio] 17.9 % High 11.6-14.6 [facility] Erythrocyte distribution wid th standard deviationOrdered By: Emmanuel Kaiser on 03-24-2025 Erythrocyte distribution width (RBC) [Ratio] 48.8 fl High 35.1-43.9 [facility] Glomerular filtration rate ( GFR) estimation/1.73 sq m using serum, plasma, or whole bOrdered By: Emmanuel Kaiser on 03-24-2025 GFR/1.73 sq M.predicted among non-blacks MDRD (S/P/Bld) [Vol rate/Area] 94 mL/min/{1.73_m2} >60 [facility] Comment on above: mL/min/1.73m2 CKD-EP I Creatinine Equation (2020) HH, Hemoglobin AND Hematocri ton 03-24-2025 Hematocrit (Bld) [Volume fraction] 28.0 % Low 40-54 [facility] Comment on above: Performed By: #### L 100.0600 ####[facility] [address] [place], [place], [id number]) Hemoglobin (Bld) [Mass/Vol] 8.8 g/dL Low 13.0-16.5 [facility] Comment on above: Performed By: #### L 100.0600 ####[facility] [address] [place], [place], [id number]) Hematocrit Auto (Bld) [Volum e fraction]Ordered By: Evelio Hong on 03-24-2025 Hematocrit (Bld) [Volume fraction] 28.0 % Low 40-54 [facility] Hemoglobin measurementOrdere d By: Evelio Hong on 03-24-2025 Hemoglobin (Bld) [Mass/Vol] 8.8 g/dL Low 13.0-16.5 [facility] MCV (mean corpuscular volume ) determinationOrdered By: Emmanuel Kaiser on 03-24-2025 MCV (RBC) [Entitic vol] 74.3 fL Low 80-94 [facility] Mean corpuscular hemoglobin (MCH) determinationOrdered By: Emmanuel Kaiser on 03-24-2025 MCH (RBC) [Entitic mass] 23.1 pg Low 27.0-32.0 [facility] Mean corpuscular hemoglobin concentration (MCHC) determinationOrdered By: Emmanuel Kaiser on 03-24-2025 MCHC (RBC) [Mass/Vol] 31.1 g/dL Low 32-36 [facility] Mean platelet volume determi nationOrdered By: Emmanuel Kaiser on 03-24-2025 Platelet mean volume (Bld) [Entitic vol] 9.2 fL 6.2-12.0 [facility] Myelocyte %Ordered By: Brenda Kaiser on 03-24-2025 Myelocytes/100 WBC (Bld) 2 % High 0-0 [facility] Ovalocyte detectionOrdered B y: Emmanuel Kaiser on 03-24-2025 Ovalocytes LM Ql (Bld) RARE [facility] Platelet countOrdered By: Nicole Kaiser on 03-24-2025 Platelets (Bld) [#/Vol] 190 10*3/uL 150-450 [facility] Potassium measurement (mass/ volume)Ordered By: Emmanuel Kaiser on 03-24-2025 Potassium (Unsp spec) [Mass/Vol] 3.6 mmol/L 3.3-5.1 [facility] RBC Auto (Bld) [#/Vol]Ordere d By: Emmanuel Kaiser on 03-24-2025 RBC (Bld) [#/Vol] 3.42 10*6/uL Low 4.6-6.2 [facility] Review by pathologistOrdered By: mEmanuel Kaiser on 03-24-2025 Pathologist review [place] (Unsp spec) [Interp] Samira rehman [facility] Pathologist review [place] (Unsp spec) [Interp] Reviewed [facility] Comment on above: Previous reported re sult: Samira rehman Edited by: BETH on 04/14/25:1416SEE REPORT IN PATIENT'S EMR AMENDED REPORT 04/14/25 1416 PATH REV previously reported as: Samira rehman Serum creatinine measurement (mass/volume)Ordered By: Emmanuel Kaiser on 03-24-2025 Creatinine [Mass/Vol] 0.83 mg/dL 0.70-1.20 [facility] Serum glucose measurement (m ass/volume)Ordered By: Emmanuel Kaiser on 03-24-2025 Glucose [Mass/Vol] 232 mg/dL High 70-99 [facility] Serum or plasma calcium deangelo urement (mass/volume)Ordered By: Emmanuel Kaiser on 03-24-2025 Calcium [Mass/Vol] 8.0 mg/dL 7.6-11.0 [facility] Serum or plasma urea nitroge n measurement (mass/volume)Ordered By: Emmanuel Kaiser on 03-24-2025 Urea nitrogen [Mass/Vol] 17 mg/dL 4-19 [facility] Sodium levelOrdered By: Pari Kaiser on 03-24-2025 Sodium [Moles/Vol] 139 mmol/L 133-145 [facility] Total cell countOrdered By: Emmanuel Kaiser on 03-24-2025 Cells counted Molgen (Bld/Tiss) [#] 100 MANUAL DIFF [facility] White blood cell (WBC) count Ordered By: Emmanuel Kaiser on 03-24-2025 WBC (Bld) [#/Vol] 2.5 10*3/uL Low 4.4-11.0 [facility] Automated lymphocyte count a s percentage of total leukocytesOrdered By: Emmanuel Kaiser on 03-23-2025 Lymphocytes/100 WBC Auto (Unsp spec) 9.5 % Low 19-41 [facility] Basic Metabolic Profile (BMP )on 03-23-2025 BUN/CRE 18.4 RATIO Normal 10-20 [facility] Comment on above: Performed By: #### L 500.2500, L100.0100 ####[facility] [address] [place], [address] Calcium [Mass/Vol] 8.3 mg/dL Normal 7.6-11.0 [facility] Comment on above: Performed By: #### L 500.2500, L100.0100 ####[facility] [address] [place], [address] Chloride [Moles/Vol] 110 mmol/L High 98-108 [facility] Comment on above: Performed By: #### L 500.2500, L100.0100 ####[facility] [address] [place], [address] CO2 [Moles/Vol] 16.4 mmol/L Low 21.0-32.0 [facility] Comment on above: Performed By: #### L 500.2500, L100.0100 ####[facility] [address] [place], [address] Creatinine [Mass/Vol] 0.87 mg/dL Normal 0.70-1.20 [facility] Comment on above: Performed By: #### L 500.2500, L100.0100 ####[facility] [address] [place], [address] ECRCL 75.10 ml/min Normal 50-250 [facility] Comment on above: Performed By: #### L 500.2500, L100.0100 ####[facility] [address] [place], [address] GAP 13 Normal 5-15 [facility] Comment on above: Performed By: #### L 500.2500, L100.0100 ####[facility] [address] [place], [address] GFR/1.73 sq M.predicted among non-blacks MDRD (S/P/Bld) [Vol rate/Area] 92 mL/min/{1.73_m2} Normal >60 [facility] Comment on above: Result Comment: mL/m in/1.73m2 CKD-EPI Creatinine Equation (2020) Performed By: #### L 500.2500, L100.0100 ####[facility] [address] [place], [address] Glucose [Mass/Vol] 163 mg/dL High 70-99 [facility] Comment on above: Performed By: #### L 500.2500, L100.0100 ####[facility] [address] [place], [address] Potassium [Moles/Vol] 4.0 mmol/L Normal 3.3-5.1 [facility] Comment on above: Performed By: #### L 500.2500, L100.0100 ####[facility] [address] [place], [address] Sodium [Moles/Vol] 139 mmol/L Normal 133-145 [facility] Comment on above: Performed By: #### L 500.2500, L100.0100 ####[facility] [address] [place], [address] Urea nitrogen [Mass/Vol] 16 mg/dL Normal 4-19 [facility] Comment on above: Performed By: #### L 500.2500, L100.0100 ####[facility] [address] [place], [address] Basophil percentageOrdered B y: Emmanuel Kaiser on 03-23-2025 Basophils/100 WBC (Bld) 0.7 % 0-1 [facility] CBC W/Diff, Automatedon 03-09 Absolute Lymph 0.28 X10 3/uL Low 0.83-4.51 [facility] Comment on above: Performed By: #### L 500.2500, L100.0100 ####[facility] [address] [place], [address] Absolute Neut 2.4 X10 3/uL Normal 2.0-7.7 [facility] Comment on above: Performed By: #### L 500.2500, L100.0100 ####[facility] [address] [place], [address] Basophils/100 WBC (Bld) 0.7 % Normal 0-1 [facility] Comment on above: Performed By: #### L 500.2500, L100.0100 ####[facility] [address] [place], [address] Eosinophils/100 WBC (Bld) 0.3 % Normal 0-5 [facility] Comment on above: Performed By: #### L 500.2500, L100.0100 ####[facility] [address] [place], [address] Erythrocyte distribution width (RBC) [Ratio] 17.4 % High 11.6-14.6 [facility] Comment on above: Performed By: #### L 500.2500, L100.0100 ####[facility] [address] [place], [address] Hematocrit (Bld) [Volume fraction] 26.1 % Low 40-54 [facility] Comment on above: Performed By: #### L 500.2500, L100.0100 ####[facility] [address] [place], [address] Hemoglobin (Bld) [Mass/Vol] 8.3 g/dL Low 13.0-16.5 [facility] Comment on above: Performed By: #### L 500.2500, L100.0100 ####[facility] [address] [place], [address] IG% 2.700 High 0.0-0.9 [facility] Comment on above: Result Comment: IG% - Immature Granulocytes (promyelocytes, myelocytes andmetamyelocytes) > 1% indicates that a LEFT SHIFT is Present. Performed By: #### L 500.2500, L100.0100 ####[facility] [address] [place], [address] Lymphocytes/100 WBC (Bld) 9.5 % Low 19-41 [facility] Comment on above: Performed By: #### L 500.2500, L100.0100 ####[facility] [address] [place], [address] MCH (RBC) [Entitic mass] 23.4 pg Low 27.0-32.0 [facility] Comment on above: Performed By: #### L 500.2500, L100.0100 ####[facility] [address] [place], [address] MCHC (RBC) [Mass/Vol] 31.8 g/dL Low 32-36 [facility] Comment on above: Performed By: #### L 500.2500, L100.0100 ####[facility] [address] [place], [address] MCV (RBC) [Entitic vol] 73.5 fL Low 80-94 [facility] Comment on above: Performed By: #### L 500.2500, L100.0100 ####[facility] [address] [place], [address] Monocytes/100 WBC (Bld) 6.4 % Normal 0-10 [facility] Comment on above: Performed By: #### L 500.2500, L100.0100 ####[facility] [address] [place], [address] Neutrophils/100 WBC (Bld) 80.4 % High 47-70 [facility] Comment on above: Performed By: #### L 500.2500, L100.0100 ####[facility] [address] [place], [address] Nucleated RBC (Bld) [#/Vol] 0 10*3/uL Normal 0-5 [facility] Comment on above: Performed By: #### L 500.2500, L100.0100 ####[facility] [address] [place], [address] Platelet mean volume (Bld) [Entitic vol] 9.1 fL Normal 6.2-12.0 [facility] Comment on above: Performed By: #### L 500.2500, L100.0100 ####[facility] [address] [place], [address] Platelets (Bld) [#/Vol] 187 10*3/uL Normal 150-450 [facility] Comment on above: Performed By: #### L 500.2500, L100.0100 ####[facility] [address] [place], [address] RBC (Bld) [#/Vol] 3.55 10*6/uL Low 4.6-6.2 [facility] Comment on above: Performed By: #### L 500.2500, L100.0100 ####[facility] [address] [place], [address] RDW SD 46.8 fl High 35.1-43.9 [facility] Comment on above: Performed By: #### L 500.2500, L100.0100 ####[facility] [address] [place], [address] WBC (Bld) [#/Vol] 3.0 10*3/uL Low 4.4-11.0 [facility] Comment on above: Performed By: #### L 500.2500, L100.0100 ####[facility] [address] [place], [address] Eosinophil percentageOrdered By: Emmanuel Kaiser on 03-23-2025 Eosinophils/100 WBC (Bld) 0.3 % 0-5 [facility] Immature granulocytes/100 WB C Auto (Bld)Ordered By: Emmanuel Kaiser on 03-23-2025 Immature granulocytes/100 WBC (Bld) 2.700 % High 0.0-0.9 [facility] Comment on above: IG% - Immature Granu locytes (promyelocytes, myelocytes and metamyelocytes) > 1% indicates that a LEFT SHIFT is Present. Monocyte percentageOrdered B y: Emmanuel Kaiser on 03-23-2025 Monocytes/100 WBC (Bld) 6.4 % 0-10 [facility] Nucleated red blood cell per centageOrdered By: Emmanuel Kaiser on 03-23-2025 Nucleated RBC/100 WBC (Bld) [Ratio] 0 % 0-5 [facility] Bilirubin, totalOrdered By: Sayra Fuentes on 03-22-2025 Bilirubin [Mass/Vol] 0.28 mg/dL 0.00-1.30 [facility] Blood manual differential co mment interpretation (narrative result)Ordered By: Sayra Fuentes on 03-22-2025 Manual differential comment Obinna (Bld) [Interp] S [facility] CBC W/Diff, Automatedon 03-09 SMEAR COMMENT S Normal [facility] Comment on above: Performed By: #### L 100.0100, L500.4050 ####[facility] [address] [place], [address] Comprehensive Metabolic Prof ilon 03-22-2025 Albumin [Mass/Vol] 3.1 g/dL Low 3.4-4.8 [facility] Comment on above: Performed By: #### L 100.0100, L500.4050 ####[facility] [address] [place], [address] Albumin/Globulin [Mass ratio] 1.4 {ratio} Normal 0.9-2.4 [facility] Comment on above: Performed By: #### L 100.0100, L500.4050 ####[facility] [address] [place], [address] ALK PHOS 61 U/L Normal 40-129 [facility] Comment on above: Performed By: #### L 100.0100, L500.4050 ####[facility] [address] [place], [address] ALT [Catalytic activity/Vol] 7 U/L Normal <=46 [facility] Comment on above: Performed By: #### L 100.0100, L500.4050 ####[facility] [address] [place], [address] AST [Catalytic activity/Vol] 15 U/L Normal <=37 [facility] Comment on above: Performed By: #### L 100.0100, L500.4050 ####[facility] [address] [place], [address] Bilirubin [Mass/Vol] 0.28 mg/dL Normal 0.00-1.30 [facility] Comment on above: Performed By: #### L 100.0100, L500.4050 ####[facility] [address] [place], [address] BUN/CRE 15.1 RATIO Normal 10-20 [facility] Comment on above: Performed By: #### L 100.0100, L500.4050 ####[facility] [address] [place], [address] Calcium [Mass/Vol] 8.3 mg/dL Normal 7.6-11.0 [facility] Comment on above: Performed By: #### L 100.0100, L500.4050 ####[facility] [address] [place], [address] Chloride [Moles/Vol] 103 mmol/L Normal 98-108 [facility] Comment on above: Performed By: #### L 100.0100, L500.4050 ####[facility] [address] [place], [address] CO2 [Moles/Vol] 13.8 mmol/L Low 21.0-32.0 [facility] Comment on above: Performed By: #### L 100.0100, L500.4050 ####[facility] [address] [place], [address] Creatinine [Mass/Vol] 0.91 mg/dL Normal 0.70-1.20 [facility] Comment on above: Performed By: #### L 100.0100, L500.4050 ####[facility] [address] [place], [address] ECRCL 72.05 ml/min Normal 50-250 [facility] Comment on above: Performed By: #### L 100.0100, L500.4050 ####[facility] [address] [place], [address] GAP 15 Normal 5-15 [facility] Comment on above: Performed By: #### L 100.0100, L500.4050 ####[facility] [address] [place], [address] GFR/1.73 sq M.predicted among non-blacks MDRD (S/P/Bld) [Vol rate/Area] 91 mL/min/{1.73_m2} Normal >60 [facility] Comment on above: Result Comment: mL/m in/1.73m2 CKD-EPI Creatinine Equation (2020) Performed By: #### L 100.0100, L500.4050 ####[facility] [address] [place], [address] Globulin (S) [Mass/Vol] 2.2 g/dL Normal 2.2-4.2 [facility] Comment on above: Performed By: #### L 100.0100, L500.4050 ####[facility] [address] [place], [address] Glucose [Mass/Vol] 153 mg/dL High 70-99 [facility] Comment on above: Performed By: #### L 100.0100, L500.4050 ####[facility] [address] [place], [address] Potassium [Moles/Vol] 4.1 mmol/L Normal 3.3-5.1 [facility] Comment on above: Performed By: #### L 100.0100, L500.4050 ####[facility] [address] [place], [address] Sodium [Moles/Vol] 132 mmol/L Low 133-145 [facility] Comment on above: Performed By: #### L 100.0100, L500.4050 ####[facility] [address] [place], [address] T PROT 5.3 g/dL Low 5.9-8.4 [facility] Comment on above: Performed By: #### L 100.0100, L500.4050 ####[facility] [address] [place], [address] Urea nitrogen [Mass/Vol] 14 mg/dL Normal 4-19 [facility] Comment on above: Performed By: #### L 100.0100, L500.4050 ####[facility] [address] [place], [address] EGD Reporton 03-22-2025 EGD Report Normal [facility] Gram Stainon 03-22-2025 GS Acceptable Specimen? Yes (<25 Epithelial cells per/lpf) Gram Stain 2+ Gram positive cocci Rare Gram positive rods No Epithelial cells Normal [facility] Comment on above: Performed By: #### M 100.2400, M100.2000 ####[facility] [address] [place], [place], [id number] Laboratory - Chemistry and C hemistry - challengeOrdered By: Sayra Alfredo on 03-22-2025 AST [Catalytic activity/Vol] 15 U/L <38 [facility] MR/POSTOP.ANEon 03-22-2025 MR/POSTOP.ANE Normal [facility] MR/BODXCBNS8mk 03-22-2025 MR/POSTOPAN2 Normal [facility] No Panel InformationOrdered By: Sayra Alfredo on 03-22-2025 15 U/L <38 [facility] RESPIRATORY PANEL MOLECULARo n 03-22-2025 RP PANEL Normal [facility] Comment on above: Performed By: #### M 100.638 ####[facility] [address] [place], [place], [id number] Serum globulin measurementOr dered By: Sayra Fuentes 03-22-2025 Globulin (S) [Mass/Vol] 2.2 g/dL 2.2-4.2 [facility] Serum or plasma alanine kong otransferase (ALT) measurementOrdered By: Sayra Alfredo 03-22-2025 ALT [Catalytic activity/Vol] 7 U/L <47 [facility] Serum or plasma albumin deangelo urement (mass/volume)Ordered By: Sayra Alfredo 03-22-2025 Albumin [Mass/Vol] 3.1 g/dL Low 3.4-4.8 [facility] Serum or plasma albumin/glob ulin mass ratioOrdered By: Sayra Alfredo 03-22-2025 Albumin/Globulin [Mass ratio] 1.4 {ratio} 0.9-2.4 [facility] Serum or plasma alkaline alie sphatase measurementOrdered By: Sayra Alfredo 03-22-2025 ALP [Catalytic activity/Vol] 61 U/L 40-129 [facility] Surgery Specimen Level Alina 03-22-2025 Surgery Specimen Level IV Normal [facility] Comment on above: Performed By: #### P SUIV ####[facility] [address] [place], [place], [id number] Total proteinOrdered By: Aut umn White on 03-22-2025 Protein [Mass/Vol] 5.3 g/dL Low 5.9-8.4 [facility] Absolute lymphocyte countOrd ered By: Khalif Horan on 03-21-2025 Lymphocytes Auto (Unsp spec) [#/Vol] 0.77 10*3/uL Low 0.83-4.51 [facility] Anion gap in Serum or Plasma Ordered By: Khalif Horan on 03-21-2025 Anion gap [Moles/Vol] 15 mmol/L 5-15 [facility] Automated blood erythrocyte countOrdered By: Khalif Horan on 03-21-2025 RBC (Bld) [#/Vol] 4.03 10*6/uL Low 4.6-6.2 [facility] Comment on above: Order Comment: REDRA W. PREVIOUS SPECIMEN REJECTED DUE TOCLOTTED. 03/21/25 1033 Kristin Harvey. Performed By: #### L 100.0100 ####[facility] [address] [place], [place], [id number] Automated blood hematocrit ( percentage)Ordered By: Khalif Horan on 03-21-2025 Hematocrit (Bld) [Volume fraction] 29.5 % Low 40-54 [facility] Comment on above: Order Comment: REDRA W. PREVIOUS SPECIMEN REJECTED DUE TOCLOTTED. 03/21/25 1033 Kristin Harvey. Performed By: #### L 100.0100 ####[facility] [address] [place], [place], [id number] Automated lymphocyte count a s percentage of total leukocytesOrdered By: Khalif Horan on 03-21-2025 Lymphocytes/100 WBC Auto (Unsp spec) 19.8 % 19-41 [facility] BUN/creatinine ratioOrdered By: Khalif Alvarezana on 03-21-2025 Urea nitrogen/Creatinine [Mass ratio] 15.5 mg/mg 10-20 [facility] Basophil percentageOrdered B y: Khalif Horan on 03-21-2025 Basophils/100 WBC (Bld) 0.8 % Normal 0-1 [facility] Comment on above: Order Comment: REDRA W. PREVIOUS SPECIMEN REJECTED DUE TOCLOTTED. 03/21/25 1033 Kristin Harvey. Performed By: #### L 100.0100 ####[facility] [address] [place], [address] Bilirubin, totalOrdered By: Khalifhussain Horan on 03-21-2025 Bilirubin [Mass/Vol] 0.43 mg/dL 0.00-1.30 [facility] CBC W/Diff, Automatedon 03-09 Absolute Lymph 0.77 X10 3/uL Low 0.83-4.51 [facility] Comment on above: Order Comment: REDRA W. PREVIOUS SPECIMEN REJECTED DUE TOCLOTTED. 03/21/25 1033 Kristin Harvey. Performed By: #### L 100.0100 ####[facility] [address] [place], [address] Absolute Neut 2.2 X10 3/uL Normal 2.0-7.7 [facility] Comment on above: Order Comment: REDRA W. PREVIOUS SPECIMEN REJECTED DUE TOCLOTTED. 03/21/25 1033 Kristin Harvey. Performed By: #### L 100.0100 ####[facility] [address] [place], [address] IG% 1.300 High 0.0-0.9 [facility] Comment on above: Order Comment: REDRA W. PREVIOUS SPECIMEN REJECTED DUE TOCLOTTED. 03/21/25 1033 Kristin Harvey. Result Comment: IG% - Immature Granulocytes (promyelocytes, myelocytes andmetamyelocytes) > 1% indicates that a LEFT SHIFT is Present. Performed By: #### L 100.0100 ####[facility] [address] [place], [address] Lymphocytes/100 WBC (Bld) 19.8 % Normal 19-41 [facility] Comment on above: Order Comment: REDRA W. PREVIOUS SPECIMEN REJECTED DUE TOCLOTTED. 03/21/25 1033 Kristin Harvey. Performed By: #### L 100.0100 ####[facility] [address] [place], [address] MCHC (RBC) [Mass/Vol] 32.2 g/dL Normal 32-36 [facility] Comment on above: Order Comment: REDRA W. PREVIOUS SPECIMEN REJECTED DUE TOCLOTTED. 03/21/25 1033 Kristin Harvey. Performed By: #### L 100.0100 ####[facility] [address] [place], [address] Nucleated RBC (Bld) [#/Vol] 0 10*3/uL Normal 0-5 [facility] Comment on above: Order Comment: REDRA W. PREVIOUS SPECIMEN REJECTED DUE TOCLOTTED. 03/21/25 1033 Kristin Harvey. Performed By: #### L 100.0100 ####[facility] [address] [place], [address] Platelet mean volume (Bld) [Entitic vol] 8.8 fL Normal 6.2-12.0 [facility] Comment on above: Order Comment: REDRA W. PREVIOUS SPECIMEN REJECTED DUE TOCLOTTED. 03/21/25 1033 Kristin Harvey. Performed By: #### L 100.0100 ####[facility] [address] [place], [address] RDW SD 47.2 fl High 35.1-43.9 [facility] Comment on above: Order Comment: REDRA W. PREVIOUS SPECIMEN REJECTED DUE TOCLOTTED. 03/21/25 1033 Kristin Harvey. Performed By: #### L 100.0100 ####[facility] [address] [place], [address] Absolute Neut Normal 2.0-7.7 [facility] Comment on above: Result Comment: This specimen has been REJECTED due to Laboratory criteria:Clotted.LYNDON has been notified of need of recollection.03/21/25 1032 Kristin Harvey Performed By: #### L 500.4050, L501.2450, L100.0100 ####[facility] [address] [place], [address] HCT Normal 40-54 [facility] Comment on above: Result Comment: This specimen has been REJECTED due to Laboratory criteria:Clotted.LYNDON has been notified of need of recollection.03/21/251031 Kristin Harvey Performed By: #### L 500.4050, L501.2450, L100.0100 ####[facility] [address] [place], [address] HGB Normal 13.0-16.5 [facility] Comment on above: Result Comment: This specimen has been REJECTED due to Laboratory criteria:Clotted.LYNDON has been notified of need of recollection.03/21/252 Kristin Harvey Performed By: #### L 500.4050, L501.2450, L100.0100 ####[facility] [address] [place], [address] MCH Normal 27.0-32.0 [facility] Comment on above: Result Comment: This specimen has been REJECTED due to Laboratory criteria:Clotted.LYNDON has been notified of need of recollection.03/21/251031 Kristin Harvey Performed By: #### L 500.4050, L501.2450, L100.0100 ####[facility] [address] [place], [address] MCHC Normal 32-36 [facility] Comment on above: Result Comment: This specimen has been REJECTED due to Laboratory criteria:Clotted.LYNDON has been notified of need of recollection.03/21/25 1032 Kristin Harvey Performed By: #### L 500.4050, L501.2450, L100.0100 ####[facility] [address] [place], [address] MCV Normal 80-94 [facility] Comment on above: Result Comment: This specimen has been REJECTED due to Laboratory criteria:Clotted.LYNDON has been notified of need of recollection.03/21/25 1032 Kristin Harvey Performed By: #### L 500.4050, L501.2450, L100.0100 ####[facility] [address] [place], [address] NEUT% Normal 47-70 [facility] Comment on above: Result Comment: This specimen has been REJECTED due to Laboratory criteria:Clotted.LYNDON has been notified of need of recollection.03/21/25 1032 Kristin Harvey Performed By: #### L 500.4050, L501.2450, L100.0100 ####[facility] [address] [place], [address] PLT Normal 150-450 [facility] Comment on above: Result Comment: This specimen has been REJECTED due to Laboratory criteria:Clotted.LYNDON has been notified of need of recollection.03/21/25 1032 Kristin Harvey Performed By: #### L 500.4050, L501.2450, L100.0100 ####[facility] [address] [place], [address] RBC Normal 4.6-6.2 [facility] Comment on above: Result Comment: This specimen has been REJECTED due to Laboratory criteria:Clotted.LYNDON has been notified of need of recollection.03/21/25 1032 Kristin Harvey Performed By: #### L 500.4050, L501.2450, L100.0100 ####[facility] [address] [place], [address] RDW CV Normal 11.6-14.6 [facility] Comment on above: Result Comment: This specimen has been REJECTED due to Laboratory criteria:Clotted.LYNDON has been notified of need of recollection.03/21/25 1032 Kristin Harvey Performed By: #### L 500.4050, L501.2450, L100.0100 ####[facility] [address] [place], [address] RDW SD Normal 35.1-43.9 [facility] Comment on above: Result Comment: This specimen has been REJECTED due to Laboratory criteria:Clotted.LYNDON has been notified of need of recollection.03/21/25 1032 Kristin Harvey Performed By: #### L 500.4050, L501.2450, L100.0100 ####[facility] [address] [place], [address] WBC Normal 4.4-11.0 [facility] Comment on above: Result Comment: This specimen has been REJECTED due to Laboratory criteria:Clotted.LYNDON has been notified of need of recollection.03/21/25 1032 Kristin Harvey Performed By: #### L 500.4050, L501.2450, L100.0100 ####[facility] [address] [place], [address] CT Chest, Abd, Pel w/Contras ton 03-21-2025 CT Chest, Abd, Pel w/Contrast Normal [facility] Carbon dioxide, total [Moles /volume] in Central venous bloodOrdered By: Khalif Horan on 03-21-2025 CO2 [Moles/Vol] 15.6 mmol/L Low 21.0-32.0 [facility] Chloride assayOrdered By: Azam Horan on 03-21-2025 Chloride [Moles/Vol] 101 mmol/L 98-108 [facility] Comprehensive Metabolic Prof ilon 03-21-2025 Albumin [Mass/Vol] 2.9 g/dL Low 3.4-4.8 [facility] Comment on above: Performed By: #### L 500.4050, L501.2450, L100.0100 ####[facility] [address] [place], [address] Albumin/Globulin [Mass ratio] 1.5 {ratio} Normal 0.9-2.4 [facility] Comment on above: Performed By: #### L 500.4050, L501.2450, L100.0100 ####[facility] [address] [place], [address] ALK PHOS 62 U/L Normal 40-129 [facility] Comment on above: Performed By: #### L 500.4050, L501.2450, L100.0100 ####[facility] [address] [place], [address] ALT [Catalytic activity/Vol] 6 U/L Normal <=46 [facility] Comment on above: Performed By: #### L 500.4050, L501.2450, L100.0100 ####[facility] [address] [place], [address] Chloride [Moles/Vol] 101 mmol/L Normal 98-108 [facility] Comment on above: Performed By: #### L 500.4050, L501.2450, L100.0100 ####[facility] [address] [place], [address] GAP 15 Normal 5-15 [facility] Comment on above: Performed By: #### L 500.4050, L501.2450, L100.0100 ####[facility] [address] [place], [address] Globulin (S) [Mass/Vol] 2.0 g/dL Low 2.2-4.2 [facility] Comment on above: Performed By: #### L 500.4050, L501.2450, L100.0100 ####[facility] [address] [place], [address] Potassium [Moles/Vol] 3.6 mmol/L Normal 3.3-5.1 [facility] Comment on above: Performed By: #### L 500.4050, L501.2450, L100.0100 ####[facility] [address] [place], [address] Sodium [Moles/Vol] 132 mmol/L Low 133-145 [facility] Comment on above: Performed By: #### L 500.4050, L501.2450, L100.0100 ####[facility] [address] [place], [address] Emergency Department Summary on 03-21-2025 Emergency Department Summary Normal [facility] Eosinophil percentageOrdered By: Khalif Horan on 03-21-2025 Eosinophils/100 WBC (Bld) 6.7 % High 0-5 [facility] Comment on above: Order Comment: REDRA W. PREVIOUS SPECIMEN REJECTED DUE TOCLOTTED. 03/21/25 1033 Kristin Harvey. Performed By: #### L 100.0100 ####[facility] [address] [place], [address] Erythrocyte distribution wid th ratioOrdered By: Khalif Horan on 03-21-2025 Erythrocyte distribution width (RBC) [Ratio] 17.7 % High 11.6-14.6 [facility] Comment on above: Order Comment: REDRA W. PREVIOUS SPECIMEN REJECTED DUE TOCLOTTED. 03/21/25 1033 Kristin Harvey. Performed By: #### L 100.0100 ####[facility] [address] [place], [address] Erythrocyte distribution wid th standard deviationOrdered By: Khalif Horan on 03-21-2025 Erythrocyte distribution width (RBC) [Ratio] 47.2 fl High 35.1-43.9 [facility] Glomerular filtration rate ( GFR) estimation/1.73 sq m using serum, plasma, or whole bOrdered By: Khalif Horan on 03-21-2025 GFR/1.73 sq M.predicted among non-blacks MDRD (S/P/Bld) [Vol rate/Area] 91 mL/min/{1.73_m2} >60 [facility] Gram stainOrdered By: Sayra White on 03-21-2025 Microscopic observation Gram stain Nom (Unsp spec) [facility] H AND P Exam - Hospitaliston 03-21-2025 H&P Exam - Hospitalist Normal [facility] Hemoglobin measurementOrdere d By: Khalif Horan on 03-21-2025 Hemoglobin (Bld) [Mass/Vol] 9.5 g/dL Low 13.0-16.5 [facility] Comment on above: Order Comment: ABDIAS Santana PREVIOUS SPECIMEN REJECTED DUE TOCLOTTED. 03/21/25 1033 Kristin Harvey. Performed By: #### L 100.0100 ####[facility] [address] [place], [place], [phone] Immature granulocytes/100 WB C Auto (Bld)Ordered By: Khalif Horan on 03-21-2025 Immature granulocytes/100 WBC (Bld) 1.300 % High 0.0-0.9 [facility] Legionella Antigen Urineon 0 03-21-2025 LEGU Normal [facility] Comment on above: Performed By: #### M 300.4500, M300.4600 ####[facility] [address] [place], [place], [address] Lipaseon 03-21-2025 Lipase [Catalytic activity/Vol] 23 U/L Normal 13-75 [facility] Comment on above: Result Comment: Celina parker note:LIPASE revised reference range effective 23.New Lipase methodology. Expected to produce lower valuesthan the previous assay method.NEW Reference Range: 13 - 75 U/L Performed By: #### L 500.4050, L501.2450, L100.0100 ####[facility] [address] [place], [address] Lipase measurementOrdered By : Khalif Horan on 03-21-2025 Lipase [Catalytic activity/Vol] 23 U/L 13-75 [facility] Comment on above: Please note:LIPASE r evised reference range effective 23. New Lipase methodology. Expected to produce lower values than the previous assay method. NEW Reference Range: 13 - 75 U/L M8200.1000on 03-21-2025 M8200.1000 Normal Reference Ran ge = Negative MRSA DNA Nose Ql DAVID+probe GeneXpert Instrument, PCR method MRSA PCR MRSA NEGATIVE Normal [facility] Comment on above: Performed By: #### M 8200.1000 ####[facility] [address] [place], [place], [phone] MCV (mean corpuscular volume ) determinationOrdered By: Khalif Horan on 03-21-2025 MCV (RBC) [Entitic vol] 73.2 fL Low 80-94 [facility] Comment on above: Order Comment: ABDIAS Santana PREVIOUS SPECIMEN REJECTED DUE TOCLOTTED. 03/21/25 1033 Kristin Harvey. Performed By: #### L 100.0100 ####[facility] [address] [place], [place], [phone] MR/CON.PCM.GIon 03-21-2025 MR/CON.PCM.GI Normal [facility] Magnesiumon 03-21-2025 Magnesium [Mass/Vol] 1.7 mg/dL Normal 1.5-2.2 [facility] Comment on above: Order Comment: Comme nts: May add to ED labsComments: may add to ED labs Performed By: #### L 501.5200, L501.2300 ####[facility] [address] [facility] [place], [address] Magnesium measurement (mass/ volume)Ordered By: Sayra Fuentes on 03-21-2025 Magnesium (Unsp spec) [Mass/Vol] 1.7 mg/dL 1.5-2.2 [facility] Mean corpuscular hemoglobin (MCH) determinationOrdered By: Khalif Horan on 03-21-2025 MCH (RBC) [Entitic mass] 23.6 pg Low 27.0-32.0 [facility] Comment on above: Order Comment: REDRA W. PREVIOUS SPECIMEN REJECTED DUE TOCLOTTED. 03/21/25 1033 Kristin Harvey. Performed By: #### L 100.0100 ####[facility] [address] [place], [place], [phone] Microbial respiratory cultur eOrdered By: Sayra Fuentes on 03-21-2025 Microorganism identified Cx Nom (Unsp spec) Meth. resistant Staph. aureus Abnormal [facility] Microorganism identified Cx Nom (Unsp spec) Escherichia coli Abnormal [facility] Monocyte percentageOrdered B y: Khalif Horan on 03-21-2025 Monocytes/100 WBC (Bld) 14.1 % High 0-10 [facility] Comment on above: Order Comment: RED W. PREVIOUS SPECIMEN REJECTED DUE TOCLOTTED. 03/21/25 1033 Kristin Harvey. Performed By: #### L 100.0100 ####[facility] [address] [place], [place], [phone] Nasal methicillin resistant Staphylococcus aureus (MRSA) DNA detection by PCROrdered By: Sayra Fuentes on 03-21-2025 MRSA DNA DAVID+probe Ql (Nose) [facility] Neutrophil percentageOrdered By: Khalif Horan on 03-21-2025 Neutrophils/100 WBC (Bld) 57.3 % Normal 47-70 [facility] Comment on above: Order Comment: RED W. PREVIOUS SPECIMEN REJECTED DUE TOCLOTTED. 03/21/25 1033 Kristin Harvey. Performed By: #### L 100.0100 ####[facility] [address] [place], [place], [phone] No Panel InformationOrdered By: Khalif Horan on 03-21-2025 17 U/L <38 [facility] Phosphoruson 03-21-2025 Phosphate [Mass/Vol] 3.9 mg/dL Normal 2.7-4.5 [facility] Comment on above: Order Comment: Comme nts: May add to ED labsComments: may add to ED labs Performed By: #### L 501.0009, L501.2300 ####[facility] [address] [place], [place], [phone] Platelet countOrdered By: Azam Horan on 03-21-2025 Platelets (Bld) [#/Vol] 208 10*3/uL Normal 150-450 [facility] Comment on above: Order Comment: ABDIAS Santana PREVIOUS SPECIMEN REJECTED DUE TOCLOTTED. 03/21/25 1033 Kristin Harvey. Performed By: #### L 100.0100 ####[facility] [address] [place], [address] Potassium measurement (mass/ volume)Ordered By: Khalif Horan on 03-21-2025 Potassium (Unsp spec) [Mass/Vol] 3.6 mmol/L 3.3-5.1 [facility] Respiratory pathogens detect ion panel by molecular detection methodOrdered By: Sayra Fuentes on 03-21-2025 Respiratory pathogens DNA and RNA panel DAVID+probe (Resp) [facility] Serum creatinine measurement (mass/volume)Ordered By: Khalif Horan on 03-21-2025 Creatinine [Mass/Vol] 0.89 mg/dL 0.70-1.20 [facility] Serum globulin measurementOr dered By: Khalif Horan on 03-21-2025 Globulin (S) [Mass/Vol] 2.0 g/dL Low 2.2-4.2 [facility] Serum glucose measurement (m ass/volume)Ordered By: Khalif Horan on 03-21-2025 Glucose [Mass/Vol] 87 mg/dL 70-99 [facility] Serum or plasma alanine kong otransferase (ALT) measurementOrdered By: Khalif Horan on 03-21-2025 ALT [Catalytic activity/Vol] 6 U/L <47 [facility] Serum or plasma albumin deangelo urement (mass/volume)Ordered By: Khalif Horan on 03-21-2025 Albumin [Mass/Vol] 2.9 g/dL Low 3.4-4.8 [facility] Serum or plasma albumin/glob ulin mass ratioOrdered By: Khalif Horan on 03-21-2025 Albumin/Globulin [Mass ratio] 1.5 {ratio} 0.9-2.4 [facility] Serum or plasma alkaline alie sphatase measurementOrdered By: Khalif Horan on 03-21-2025 ALP [Catalytic activity/Vol] 62 U/L 40-129 [facility] Serum or plasma calcium deangelo urement (mass/volume)Ordered By: Khalif Horan on 03-21-2025 Calcium [Mass/Vol] 8.3 mg/dL 7.6-11.0 [facility] Serum or plasma urea nitroge n measurement (mass/volume)Ordered By: Khalif Horan on 03-21-2025 Urea nitrogen [Mass/Vol] 14 mg/dL 4-19 [facility] Sodium levelOrdered By: Khalif Horan on 03-21-2025 Sodium [Moles/Vol] 132 mmol/L Low 133-145 [facility] Strep pneumoniae Antig(UR,CS F)on 03-21-2025 STPAG Normal [facility] Comment on above: Performed By: #### M 300.4500, M300.4600 ####[facility] [address] [place], [place], [phone] Total proteinOrdered By: Lashon Horan on 03-21-2025 Protein [Mass/Vol] 4.9 g/dL Low 5.9-8.4 [facility] Urine Legionella pneumophila antigen detectionOrdered By: Sayra Fuentes on 03-21-2025 L. pneumophila Ag Ql (U) [facility] White blood cell (WBC) count Ordered By: Khalif Horan on 03-21-2025 WBC (Bld) [#/Vol] 3.9 10*3/uL Low 4.4-11.0 [facility] Comment on above: Order Comment: ABDIAS Santana PREVIOUS SPECIMEN REJECTED DUE TOCLOTTED. 03/21/25 1033 Kristin Harvey. Performed By: #### L 100.0100 ####[facility] [address] [place], [place], [phone] Absolute lymphocyte countOrd ered By: Angela Rodriguez on 03-15-2025 Lymphocytes Auto (Unsp spec) [#/Vol] 0.95 10*3/uL 0.83-4.51 [facility] Anion gap in Serum or Plasma Ordered By: Jackietonny Rodriguez on 03-15-2025 Anion gap [Moles/Vol] 12 mmol/L 5- [facility] Automated lymphocyte count a s percentage of total leukocytesOrdered By: [facility] Rodriguez on 03-15-2025 Lymphocytes/100 WBC Auto (Unsp spec) 16.9 % Low 19- [facility] BUN/creatinine ratioOrdered By: [facility] Michael on 03-15-2025 Urea nitrogen/Creatinine [Mass ratio] 12.2 mg/mg 10- [facility] Basophil percentageOrdered B y: Angela Rodriguez on 03-15-2025 Basophils/100 WBC (Bld) 0.7 % 0-1 [facility] Bilirubin, totalOrdered By: [facility] Rodriguez on 03-15-2025 Bilirubin [Mass/Vol] 0.41 mg/dL 0.00-1.30 [facility] CBC W/Diff, Automatedon Absolute Lymph 0.95 X10 3/uL Normal 0.83-4.51 [facility] Comment on above: Performed By: #### L 501.2300, L500.4050, L100.0100 ####[facility] [address] [place], [address] Absolute Neut 3.7 X10 3/uL Normal 2.0-7.7 [facility] Comment on above: Performed By: #### L 501.2300, L500.4050, L100.0100 ####[facility] [address] [place], [address] Basophils/100 WBC (Bld) 0.7 % Normal 0-1 [facility] Comment on above: Performed By: #### L 501.2300, L500.4050, L100.0100 ####[facility] [address] [place], [address] Eosinophils/100 WBC (Bld) 4.3 % Normal 0-5 [facility] Comment on above: Performed By: #### L 501.2300, L500.4050, L100.0100 ####[facility] [address] [place], [address] Erythrocyte distribution width (RBC) [Ratio] 18.2 % High 11.6-14.6 [facility] Comment on above: Performed By: #### L 501.2300, L500.4050, L100.0100 ####[facility] [address] [place], [address] Hematocrit (Bld) [Volume fraction] 30.8 % Low 40-54 [facility] Comment on above: Performed By: #### L 501.2300, L500.4050, L100.0100 ####[facility] [address] [place], [address] Hemoglobin (Bld) [Mass/Vol] 10.0 g/dL Low 13.0-16.5 [facility] Comment on above: Performed By: #### L 501.2300, L500.4050, L100.0100 ####[facility] [address] [place], [address] IG% 1.800 High 0.0-0.9 [facility] Comment on above: Result Comment: IG% - Immature Granulocytes (promyelocytes, myelocytes andmetamyelocytes) > 1% indicates that a LEFT SHIFT is Present. Performed By: #### L 501.2300, L500.4050, L100.0100 ####[facility] [address] [place], [address] Lymphocytes/100 WBC (Bld) 16.9 % Low 19-41 [facility] Comment on above: Performed By: #### L 501.2300, L500.4050, L100.0100 ####[facility] [address] [place], [address] MCH (RBC) [Entitic mass] 23.5 pg Low 27.0-32.0 [facility] Comment on above: Performed By: #### L 501.2300, L500.4050, L100.0100 ####[facility] [address] [place], [address] MCHC (RBC) [Mass/Vol] 32.5 g/dL Normal 32-36 [facility] Comment on above: Performed By: #### L 501.2300, L500.4050, L100.0100 ####[facility] [address] [place], [address] MCV (RBC) [Entitic vol] 72.5 fL Low 80-94 [facility] Comment on above: Performed By: #### L 501.2300, L500.4050, L100.0100 ####[facility] [address] [place], [address] Monocytes/100 WBC (Bld) 11.0 % High 0-10 [facility] Comment on above: Performed By: #### L 501.2300, L500.4050, L100.0100 ####[facility] [address] [place], [address] Neutrophils/100 WBC (Bld) 65.3 % Normal 47-70 [facility] Comment on above: Performed By: #### L 501.2300, L500.4050, L100.0100 ####[facility] [address] [place], [address] Nucleated RBC (Bld) [#/Vol] 0 10*3/uL Normal 0-5 [facility] Comment on above: Performed By: #### L 501.2300, L500.4050, L100.0100 ####[facility] [address] [place], [address] Platelet mean volume (Bld) [Entitic vol] 9.0 fL Normal 6.2-12.0 [facility] Comment on above: Performed By: #### L 501.2300, L500.4050, L100.0100 ####[facility] [address] [place], [address] Platelets (Bld) [#/Vol] 227 10*3/uL Normal 150-450 [facility] Comment on above: Performed By: #### L 501.2300, L500.4050, L100.0100 ####[facility] [address] [place], [address] RBC (Bld) [#/Vol] 4.25 10*6/uL Low 4.6-6.2 [facility] Comment on above: Performed By: #### L 501.2300, L500.4050, L100.0100 ####[facility] [address] [place], [address] RDW SD 47.4 fl High 35.1-43.9 [facility] Comment on above: Performed By: #### L 501.2300, L500.4050, L100.0100 ####[facility] [address] [place], [address] WBC (Bld) [#/Vol] 5.6 10*3/uL Normal 4.4-11.0 [facility] Comment on above: Performed By: #### L 501.2300, L500.4050, L100.0100 ####[facility] [address] [place], [address] Carbon dioxide, total [Moles /volume] in Central venous bloodOrdered By: Angela Rodriguez on 03-15-2025 CO2 [Moles/Vol] 17.9 mmol/L Low 21.0-32.0 [facility] Chloride assayOrdered By: Ivonne Rodriguez on 03-15-2025 Chloride [Moles/Vol] 105 mmol/L 98-108 [facility] Comprehensive Metabolic Prof ilon 03-15-2025 Albumin [Mass/Vol] 3.4 g/dL Normal 3.4-4.8 [facility] Comment on above: Performed By: #### L 501.2300, L500.4050, L100.0100 ####[facility] [address] [place], [address] Albumin/Globulin [Mass ratio] 1.4 {ratio} Normal 0.9-2.4 [facility] Comment on above: Performed By: #### L 501.2300, L500.4050, L100.0100 ####[facility] [address] [place], [address] ALK PHOS 66 U/L Normal 40-129 [facility] Comment on above: Performed By: #### L 501.2300, L500.4050, L100.0100 ####[facility] [address] [place], [address] ALT [Catalytic activity/Vol] 8 U/L Normal <=46 [facility] Comment on above: Performed By: #### L 501.2300, L500.4050, L100.0100 ####[facility] [address] [place], [address] AST [Catalytic activity/Vol] 19 U/L Normal <=37 [facility] Comment on above: Performed By: #### L 501.2300, L500.4050, L100.0100 ####[facility] [address] [place], [address] Bilirubin [Mass/Vol] 0.41 mg/dL Normal 0.00-1.30 [facility] Comment on above: Performed By: #### L 501.2300, L500.4050, L100.0100 ####[facility] [address] [place], [address] BUN/CRE 12.2 RATIO Normal 10-20 [facility] Comment on above: Performed By: #### L 501.2300, L500.4050, L100.0100 ####[facility] [address] [place], [address] Calcium [Mass/Vol] 8.6 mg/dL Normal 7.6-11.0 [facility] Comment on above: Performed By: #### L 501.2300, L500.4050, L100.0100 ####[facility] [address] [place], [address] Chloride [Moles/Vol] 105 mmol/L Normal 98-108 [facility] Comment on above: Performed By: #### L 501.2300, L500.4050, L100.0100 ####[facility] [address] [place], [address] CO2 [Moles/Vol] 17.9 mmol/L Low 21.0-32.0 [facility] Comment on above: Performed By: #### L 501.2300, L500.4050, L100.0100 ####[facility] [address] [place], [address] Creatinine [Mass/Vol] 1.07 mg/dL Normal 0.70-1.20 [facility] Comment on above: Performed By: #### L 501.2300, L500.4050, L100.0100 ####[facility] [address] [place], [address] ECRCL 61.39 ml/min Normal 50-250 [facility] Comment on above: Performed By: #### L 501.2300, L500.4050, L100.0100 ####[facility] [address] [place], [address] GAP 12 Normal 5-15 [facility] Comment on above: Performed By: #### L 501.2300, L500.4050, L100.0100 ####[facility] [address] [place], [address] GFR/1.73 sq M.predicted among non-blacks MDRD (S/P/Bld) [Vol rate/Area] 74 mL/min/{1.73_m2} Normal >60 [facility] Comment on above: Result Comment: mL/m in/1.73m2 CKD-EPI Creatinine Equation (2020) Performed By: #### L 501.2300, L500.4050, L100.0100 ####[facility] [address] [place], [address] Globulin (S) [Mass/Vol] 2.4 g/dL Normal 2.2-4.2 [facility] Comment on above: Performed By: #### L 501.2300, L500.4050, L100.0100 ####[facility] [address] [place], [address] Glucose [Mass/Vol] 98 mg/dL Normal 70-99 [facility] Comment on above: Performed By: #### L 501.2300, L500.4050, L100.0100 ####[facility] [address] [place], [address] Potassium [Moles/Vol] 3.7 mmol/L Normal 3.3-5.1 [facility] Comment on above: Performed By: #### L 501.2300, L500.4050, L100.0100 ####[facility] [address] [place], [address] Sodium [Moles/Vol] 134 mmol/L Normal 133-145 [facility] Comment on above: Performed By: #### L 501.2300, L500.4050, L100.0100 ####[facility] [address] [place], [address] T PROT 5.8 g/dL Low 5.9-8.4 [facility] Comment on above: Performed By: #### L 501.2300, L500.4050, L100.0100 ####[facility] [address] [place], [address] Urea nitrogen [Mass/Vol] 13 mg/dL Normal 4-19 [facility] Comment on above: Performed By: #### L 501.2300, L500.4050, L100.0100 ####[facility] [address] [place], [address] Eosinophil percentageOrdered By: Angela Rodriguez on 03-15-2025 Eosinophils/100 WBC (Bld) 4.3 % 0-5 [facility] Erythrocyte distribution wid th ratioOrdered By: Angela Rodriguez on 03-15-2025 Erythrocyte distribution width (RBC) [Ratio] 18.2 % High 11.6-14.6 [facility] Erythrocyte distribution wid th standard deviationOrdered By: [facility] Michael on 03-15-2025 Erythrocyte distribution width (RBC) [Ratio] 47.4 fl High 35.1-43.9 [facility] Ferritinon 03-15-2025 Ferritin [Mass/Vol] 550 ng/mL High 37-417 [facility] Comment on above: Order Comment: ADD O N FROM EARLIER TODAY, THANKS Performed By: #### L 503.6030, L503.6550, L503.0106 ####[facility] [address] [place], [address] Glomerular filtration rate ( GFR) estimation/1.73 sq m using serum, plasma, or whole bOrdered By: Angela Rodriguez on 03-15-2025 GFR/1.73 sq M.predicted among non-blacks MDRD (S/P/Bld) [Vol rate/Area] 74 mL/min/{1.73_m2} >60 [facility] Hematocrit Auto (Bld) [Volum e fraction]Ordered By: Angela Rodriguez on 03-15-2025 Hematocrit (Bld) [Volume fraction] 30.8 % Low 40-54 [facility] Hemoglobin measurementOrdere d By: Angela Rodriguez on 03-15-2025 Hemoglobin (Bld) [Mass/Vol] 10.0 g/dL Low 13.0-16.5 [facility] Immature granulocytes/100 WB C Auto (Bld)Ordered By: Angela Rodriguez on 03-15-2025 Immature granulocytes/100 WBC (Bld) 1.800 % High 0.0-0.9 [facility] Iron measurement (mass/mass) Ordered By: [facility] on 03-15-2025 Iron (Unsp spec) [Mass/Mass] 32 ug/dL Low 65-175 [facility] Iron+Iron Binding Capacityon 03-15-2025 TIBC 213 ug/dL Low 250-450 [facility] Comment on above: Order Comment: ADD O N FROM EARLIER TODAY, THANKS Performed By: #### L 503.6030, L503.6550, L503.0106 ####[facility] [address] [facility] [facility] [place], [place], [id number] MCV (mean corpuscular volume ) determinationOrdered By: Angela Rodriguez on 03-15-2025 MCV (RBC) [Entitic vol] 72.5 fL Low 80-94 [facility] Magnesiumon 03-15-2025 Magnesium [Mass/Vol] 1.9 mg/dL Normal 1.5-2.2 [facility] Comment on above: Performed By: #### L 501.5200 ####[facility] [address] [facility] [place], [place], [id number] Magnesium measurement (mass/ volume)Ordered By: Angela Rodriguez on 03-15-2025 Magnesium (Unsp spec) [Mass/Vol] 1.9 mg/dL 1.5-2.2 [facility] Mean corpuscular hemoglobin (MCH) determinationOrdered By: Angela Rodriguez on 03-15-2025 MCH (RBC) [Entitic mass] 23.5 pg Low 27.0-32.0 [facility] Monocyte percentageOrdered B y: Angela Rodriguez on 03-15-2025 Monocytes/100 WBC (Bld) 11.0 % High 0-10 [facility] Neutrophil percentageOrdered By: Angela Rodriguez on 03-15-2025 Neutrophils/100 WBC (Bld) 65.3 % 47-70 [facility] No Panel InformationOrdered By: Angela Rodriguez on 03-15-2025 19 U/L <38 [facility] 181 ug/dL Low 228-428 [facility] Oncology Visit Reporton Oncology Visit Report Normal [facility] Phosphoruson 03-15-2025 Phosphate [Mass/Vol] 3.8 mg/dL Normal 2.7-4.5 [facility] Comment on above: Performed By: #### L 501.2300, L500.4050, L100.0100 ####[facility] [address] [facility] [place], [place], [id number] Platelet countOrdered By: Ivonne Rodriguez on 03-15-2025 Platelets (Bld) [#/Vol] 227 10*3/uL 150-450 [facility] Potassium measurement (mass/ volume)Ordered By: Angela Rodriguez on 03-15-2025 Potassium (Unsp spec) [Mass/Vol] 3.7 mmol/L 3.3-5.1 [facility] RBC Auto (Bld) [#/Vol]Ordere d By: Angela Rodriguez on 03-15-2025 RBC (Bld) [#/Vol] 4.25 10*6/uL Low 4.6-6.2 [facility] Serum creatinine measurement (mass/volume)Ordered By: Angela Rodriguez on 03-15-2025 Creatinine [Mass/Vol] 1.07 mg/dL 0.70-1.20 [facility] Serum globulin measurementOr dered By: Angela Rodriguez on 03-15-2025 Globulin (S) [Mass/Vol] 2.4 g/dL 2.2-4.2 [facility] Serum glucose measurement (m ass/volume)Ordered By: Angela Rodriguez on 03-15-2025 Glucose [Mass/Vol] 98 mg/dL 70-99 [facility] Serum or plasma alanine kong otransferase (ALT) measurementOrdered By: Angela Rodriguez on 03-15-2025 ALT [Catalytic activity/Vol] 8 U/L <47 [facility] Serum or plasma albumin deangelo urement (mass/volume)Ordered By: Angela Rodriguez on 03-15-2025 Albumin [Mass/Vol] 3.4 g/dL 3.4-4.8 [facility] Serum or plasma albumin/glob ulin mass ratioOrdered By: Angela Rodriguez on 03-15-2025 Albumin/Globulin [Mass ratio] 1.4 {ratio} 0.9-2.4 [facility] Serum or plasma alkaline alie sphatase measurementOrdered By: Angela Rodriguez on 03-15-2025 ALP [Catalytic activity/Vol] 66 U/L 40-129 [facility] Serum or plasma calcium deangelo urement (mass/volume)Ordered By: Angela Rodriguez on 03-15-2025 Calcium [Mass/Vol] 8.6 mg/dL 7.6-11.0 [facility] Serum or plasma ferritin samantha surement (mass/volume)Ordered By: Angela Rodriguez on 03-15-2025 Ferritin [Mass/Vol] 550 ng/mL High 37-417 [facility] Serum or plasma iron saturat ion measurement (mass fraction)Ordered By: Angela Rodriguez on 03-15-2025 Iron saturation [Mass fraction] 15.0 % 9-55 [facility] Serum or plasma urea nitroge n measurement (mass/volume)Ordered By: Angela Rodriguez on 03-15-2025 Urea nitrogen [Mass/Vol] 13 mg/dL 4-19 [facility] Sodium levelOrdered By: Jackie Rodriguez on 03-15-2025 Sodium [Moles/Vol] 134 mmol/L 133-145 [facility] Total proteinOrdered By: Antoni Rodriguez on 03-15-2025 Protein [Mass/Vol] 5.8 g/dL Low 5.9-8.4 [facility] Vitamin B12on 03-15-2025 Cobalamin (Vitamin B12) [Mass/Vol] 596 pg/mL Normal 180-914 [facility] Comment on above: Order Comment: ADD O N FROM EARLIER TODAY, THANKS Performed By: #### L 503.6030, L503.6550, L503.0106 ####[facility] [address] [place], [address] Vitamin B12 ser/plasOrdered By: Angela Rodriguez on 03-15-2025 Cobalamin (Vitamin B12) [Mass/Vol] 596 pg/mL 180-914 [facility] White blood cell (WBC) count Ordered By: Angela Rodriguez on 03-15-2025 WBC (Bld) [#/Vol] 5.6 10*3/uL 4.4-11.0 [facility] CBC W/Diff, Automatedon PATH REV N/A Normal [facility] Comment on above: Result Comment: AMENDED REPORT 03/10/251713 PATH REV previously reported as: [facility]. Performed By: #### L 500.4050, L300.3900, L100.0100 ####[facility] [address] [place], [address] 36on 03-03-2025 36 Recent Visits Date Type Provider Dept 02/21/25 Office Visit Jacob Jennings, DO [facility] 12/30/24 Office Visit Jacob Jennings, DO [facility] 12/06/24 Office Visit Jacob Jennings DO [facility] 10/20/24 Office Visit Jacob Jennings DO [facility] 09/19/24 Office Visit Jacob Jennings DO [facility] 04/19/24 Office Visit Jacob Jennings DO [facility] Showing recent visits within past 365 days and meeting all other requirements Future Appointments Date Type Provider Dept 04/18/25 Appointment Jacob Jennings DO [facility] Showing future appointments within next 90 days and meeting all other requirements Requested Prescriptions Pending Prescriptions Disp Refills Eliquis 2.5 MG tablet [Pharmacy Med Name: ELIQUIS 2.5 MG TABLET] 90 tablet 0 Sig: TAKE 1 TABLET BY MOUTH EVERY DAY Provider: Jacob Jennings DO Verified pharmacy: yes Verified day(s) supplied: yes Verified refill(s) needed (previous prescription showing no refills in chart): Yes Have you received any controlled medications from any other provider? N/A Overdue for visit: No If yes - patient scheduled? Yes Most recent labs completed in chart? N/A None [facility] CBC W/Diff, Automatedon 02-08 PATH REV Reviewed Normal [facility] Comment on above: Result Comment: SEE REPORT IN PATIENT'S EMR AMENDED REPORT 02/28/25 [id number] PATH REV previously reported as: March Performed By: #### L 500.3400, L501.5200, L500.2500, L501.2300, L100.0100 ####[facility] [address] [place], [address] 37on 02-21-2025 37 I do recommend resta rting your DuoNeb aerosols at least 3 times a day. Should take a multivitamin with a probiotic each day for many months. Please call forensic economist Dr. Malcolm for input on any med additions for your cough if things worsen. Notify us up if you have 1 week of purulent colored phlegm that is accompanied by more shortness of breath and a sense of feeling ill. Normal [facility] Office Visiton 02-21-2025 Follow-up visit [id number] Mirna Arshad 1955 M Date Provider Department Center 02/21/2025 [id number] JENNINGS [facility] Family History Problem Relation Age of Onset Coronary artery disease Mother Comments: CABG Coronary artery disease Sister Comments: CABG Stroke Mother Comments: age 77 Lung cancer Mother No Known Problems Sister No Known Problems Brother No Known Problems Sister No Known Problems Sister Diabetes Sister Coronary artery disease Father Comments: age 50 [place] - smoker Coronary artery disease Brother Comments: age 47 [place] Family Status - Relation Status Age at Mother 77 Sister Alive Sister Alive Brother Alive Sister Alive Sister Alive Father 50 Brother 47 Level of Service:50420 [place] OFFICE/OUTPATIENT ESTABLISHED LOW MDM 20 MIN Reason for Visit and Comments: Hospital Follow-up [832] Normal [facility] Progress Noteon 02-21-2025 Progress Note [facility] - [address] [facility] [address] Visit type: Established Patient Reason for Visit: Hospital Follow-up Assessment / Plan: Kenn was seen today for hospital follow-up. Diagnoses and all orders for this visit: Chronic bronchitis, unspecified chronic bronchitis type (HCC) (Primary) Comments: Recurrent but improving, restart DuoNeb aerosols 3 times daily Adenosquamous carcinoma of lung, left (HCC) Chemotherapy induced diarrhea Comments: Resolved, follow-up with oncology Other orders - ipratropium-albuterol (Duo-Neb) 0.5-2.5 mg/3 mL nebulizer solution; Take 3 mL by nebulization three times daily. Subjective: Patient ID: Kenn Arshad is a 69 y.o. male. HPI patient recently diagnosed with Keytruda related diarrhea after sigmoidoscopy a few weeks ago and now presenting with recurrent cough productive of white phlegm over many weeks. He is on weaning dose of prednisone due to the colitis. Not taking his DuoNeb aerosol treatments routinely. Had a low-grade fever and bodyaches after getting influenza A and had mixed bacterial infection in the hospital. CT showed multiple changes of atypical infection and/or metastatic disease perhaps due to his non-small cell of the lung or renal cell carcinoma. Of note he had been on Keytruda for almost 3 years. Review of Systems appetite is improved. No recurrent fever for few days. Denies change in shortness of breath but cough is persistent. No pleurisy. No peculiar body aches. Has a better appetite. No emesis or diarrhea. No abdominal pain. Will be seeing his oncologist in the future to discuss repeat CT of the chest and perhaps restarting Keytruda. Does not see his forensic economist routinely but has seen Dr. Malcolm in the past. Saw Dr. Chambers's honey blender a few days ago for follow-up after his sigmoidoscopy. No new recommendations No Known Allergies Current Outpatient Medications: amLODIPine (Norvasc) 10 MG tablet, Take 1 tablet (10 mg) by mouth daily for 180 doses., Disp: 90 tablet, Rfl: 1 apixaban (Eliquis) 2.5 MG tablet, One q day, Disp: 90 tablet, Rfl: 0 carvedilol (Coreg) 25 MG tablet, Take 1 tablet (25 mg) by mouth 2 times daily (with meals)., Disp: 180 tablet, Rfl: 1 hydrALAZINE (Apresoline) 50 MG tablet, Take 1 tablet (50 mg) by mouth 2 times daily., Disp: 180 tablet, Rfl: 1 Lancets (OneTouch Delica Plus Cveqli18E) [facility], , Disp: , Rfl: nitroglycerin (Nitrostat) 0.4 MG SL tablet, Place 1 tablet (0.4 mg) under the tongue every 5 minutes as needed for chest pain., Disp: 90 tablet, Rfl: 0 omeprazole (PriLOSEC) [address] capsule, Take 1 capsule (20 mg) by mouth Daily as needed (reflux)., Disp: 90 capsule, Rfl: 1 Vision CriticalTouch Ultra test strip, , Disp: , Rfl: pembrolizumab (Keytruda) 100 MG/4ML chemo injection, Infuse 200 mg into a venous catheter., Disp: , Rfl: predniSONE (Deltasone) 10 MG tablet, 10 mg every other day. Takes 5 mg on opposite days, Disp: , Rfl: Refresh Optive Advanced PF 0.5-1-0.5 % solution, Administer 1 drop into both eyes 2 times daily., Disp: , Rfl: rosuvastatin (Crestor) 40 MG tablet, TAKE 1 TABLET BY MOUTH EVERY DAY, Disp: 90 tablet, Rfl: 1 ipratropium-albuterol (Duo-Neb) 0.5-2.5 mg/3 mL nebulizer solution, Take 3 mL by nebulization three times daily., Disp: 180 mL, Rfl: 11 Patient Active Problem List Diagnosis Right carotid [...] HF chronicity, unspecified heart failure type (HCC) Type 2 diabetes mellitus (HCC) Obesity, morbid (HCC) Seizure (HCC) History of pulmonary embolism Ex-smoker 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 Sutherland, C3-5 , [place] COLONOSCOPY 02/26 (more content not included)... [facility] Gastroenterology Visit Repor ton 02-16-2025 Gastroenterology Visit Report [facility] 36on 02-15-2025 36 Spoke to Jelena archuleta nd gave the verbal ok on order for home visitation and other recommendations and she verbalized understanding. [facility] 36 S: RN with [facility] spoke with [facility] nurse regarding cough B: Onset of symptoms/concern ongoing A: RN states today was their last nursing visit and staff was going to discharge patient but he has a low grade temp. He was being seen after having the flu and pneumonia and being discharged from the hospital admit 01/10-01/18. Has increased cough with clear sputum. Was sent home with oxygen but has not been wearing oxygen lately. Pulse ox was 96%, temp 99.4 83, 21, 110/78. Diminished lung sounds. Finishing prednisone taper. Denies any chest pain or shortness of breath. R: Office back line called and spoke with Dahiana, appointment for JUN scheduled for Thursday at 2:30pm with Dr. Jennings. RN with [facility] requesting a verbal order to continue seeing patient at least one more day since patient has low grade fever. Spoke with Dahiana states she will get order from Dr. Jennings and call RN back. Jelena with [facility] can be reached at [phone] Reason for Disposition ? [1] Known COPD or other severe lung disease (i.e., bronchiectasis, cystic fibrosis, lung surgery) AND [2] symptoms getting worse (i.e., increased sputum purulence or amount, increased breathing difficulty Protocols used: Cough - Acute Ribyqpqtek-HIWIZ-LZ Normal [facility] CBC W/Diff, Automatedon -0 PATH REV N/A [facility] Comment on above: Result Comment: AMENDED REPORT 02/12/251821 PATH REV previously reported as: March Performed By: #### L 501.5200, L500.2500, L100.0100 ####[facility] [address] [place], [address] PATH REV N/A [facility] Comment on above: Result Comment: AMENDED REPORT 02/12/251817 PATH REV previously reported as: March Performed By: #### L 501.5200, L100.0100, L500.2500 ####[facility] [address] [place], [address] Blood polychromasia detectio n by light microscopyOrdered By: Angela Rodriguez on 02-01-2025 Polychromasia LM Ql (Bld) 1+ [facility] CBC W/Diff, Automatedon 01-08 Anisocytosis Ql (Bld) 1+ Normal [facility] Comment on above: Performed By: #### L 100.0100, L500.4050, L501.2300 ####[facility] [address] [place], [address] OVALOCYTE 1+ [facility] Comment on above: Performed By: #### L 100.0100, L500.4050, L501.2300 ####[facility] [address] [place], [address] POLYCHROMASIA 1+ [facility] Comment on above: Performed By: #### L 100.0100, L500.4050, L501.2300 ####[facility] [address] [place], [address] Absolute Neut Normal 2.0-7.7 [facility] Comment on above: Result Comment: CMP CBCD-DUPLICATE ORDERS FROM PT TX PLAN Performed By: #### L 100.0100, L501.5200, L501.9520, L506.0400 ####[facility] [address] [place], [address] HCT Normal 40-54 [facility] Comment on above: Result Comment: CMP CBCD-DUPLICATE ORDERS FROM PT TX PLAN Performed By: #### L 100.0100, L501.5200, L501.9520, L506.0400 ####[facility] [address] [place], [address] HGB Normal 13.0-16.5 [facility] Comment on above: Result Comment: CMP CBCD-DUPLICATE ORDERS FROM PT TX PLAN Performed By: #### L 100.0100, L501.5200, L501.9520, L506.0400 ####[facility] [address] [place], [address] MCH Normal 27.0-32.0 [facility] Comment on above: Result Comment: CMP CBCD-DUPLICATE ORDERS FROM PT TX PLAN Performed By: #### L 100.0100, L501.5200, L501.9520, L506.0400 ####[facility] [address] [place], [address] MCHC Normal 32-36 [facility] Comment on above: Result Comment: CMP CBCD-DUPLICATE ORDERS FROM PT TX PLAN Performed By: #### L 100.0100, L501.5200, L501.9520, L506.0400 ####[facility] [address] [place], [address] MCV Normal 80-94 [facility] Comment on above: Result Comment: CMP CBCD-DUPLICATE ORDERS FROM PT TX PLAN Performed By: #### L 100.0100, L501.5200, L501.9520, L506.0400 ####[facility] [address] [place], [address] NEUT% Normal 47-70 [facility] Comment on above: Result Comment: CMP CBCD-DUPLICATE ORDERS FROM PT TX PLAN Performed By: #### L 100.0100, L501.5200, L501.9520, L506.0400 ####[facility] [address] [place], [address] PLT Normal 150-450 [facility] Comment on above: Result Comment: CMP CBCD-DUPLICATE ORDERS FROM PT TX PLAN Performed By: #### L 100.0100, L501.5200, L501.9520, L506.0400 ####[facility] [address] [place], [address] RBC Normal 4.6-6.2 [facility] Comment on above: Result Comment: CMP CBCD-DUPLICATE ORDERS FROM PT TX PLAN Performed By: #### L 100.0100, L501.5200, L501.9520, L506.0400 ####[facility] [address] [place], [address] RDW CV Normal 11.6-14.6 [facility] Comment on above: Result Comment: CMP CBCD-DUPLICATE ORDERS FROM PT TX PLAN Performed By: #### L 100.0100, L501.5200, L501.9520, L506.0400 ####[facility] [address] [place], [address] RDW SD Normal 35.1-43.9 [facility] Comment on above: Result Comment: CMP CBCD-DUPLICATE ORDERS FROM PT TX PLAN Performed By: #### L 100.0100, L501.5200, L501.9520, L506.0400 ####[facility] [address] [place], [address] WBC Normal 4.4-11.0 [facility] Comment on above: Result Comment: CMP CBCD-DUPLICATE ORDERS FROM PT TX PLAN Performed By: #### L 100.0100, L501.5200, L501.9520, L506.0400 ####[facility] [address] [place], [address] Comprehensive Metabolic Prof ilon 02-01-2025 Albumin [Mass/Vol] 3.5 g/dL Normal 3.4-4.8 [facility] Comment on above: Performed By: #### L 100.0100, L500.4050, L501.2300 ####[facility] [address] [place], [address] Albumin/Globulin [Mass ratio] 1.6 {ratio} Normal 0.9-2.4 [facility] Comment on above: Performed By: #### L 100.0100, L500.4050, L501.2300 ####[facility] [address] [place], [address] ALK PHOS 56 U/L Normal 40-129 [facility] Comment on above: Performed By: #### L 100.0100, L500.4050, L501.2300 ####[facility] [address] [place], [address] ALT [Catalytic activity/Vol] 46 U/L Normal <=46 [facility] Comment on above: Performed By: #### L 100.0100, L500.4050, L501.2300 ####[facility] [address] [place], [address] AST [Catalytic activity/Vol] 26 U/L Normal <=37 [facility] Comment on above: Performed By: #### L 100.0100, L500.4050, L501.2300 ####[facility] [address] [place], [address] Bilirubin [Mass/Vol] 0.44 mg/dL Normal 0.00-1.30 [facility] Comment on above: Performed By: #### L 100.0100, L500.4050, L501.2300 ####[facility] [address] [place], [address] BUN/CRE 17.9 RATIO Normal 10-20 [facility] Comment on above: Performed By: #### L 100.0100, L500.4050, L501.2300 ####[facility] [address] [place], [address] Calcium [Mass/Vol] 8.2 mg/dL Normal 7.6-11.0 [facility] Comment on above: Performed By: #### L 100.0100, L500.4050, L501.2300 ####[facility] [address] [place], [address] Chloride [Moles/Vol] 107 mmol/L Normal 98-108 [facility] Comment on above: Performed By: #### L 100.0100, L500.4050, L501.2300 ####[facility] [address] [place], [address] CO2 [Moles/Vol] 19.4 mmol/L Low 21.0-32.0 [facility] Comment on above: Performed By: #### L 100.0100, L500.4050, L501.2300 ####[facility] [address] [place], [address] Creatinine [Mass/Vol] 0.78 mg/dL Normal 0.70-1.20 [facility] Comment on above: Performed By: #### L 100.0100, L500.4050, L501.2300 ####[facility] [address] [place], [address] ECRCL 83.11 ml/min Normal 50-250 [facility] Comment on above: Performed By: #### L 100.0100, L500.4050, L501.2300 ####[facility] [address] [place], [address] GAP 10 Normal 5-15 [facility] Comment on above: Performed By: #### L 100.0100, L500.4050, L501.2300 ####[facility] [address] [place], [address] GFR/1.73 sq M.predicted among non-blacks MDRD (S/P/Bld) [Vol rate/Area] 96 mL/min/{1.73_m2} Normal >60 [facility] Comment on above: Result Comment: mL/m in/1.73m2 CKD-EPI Creatinine Equation (2020) Performed By: #### L 100.0100, L500.4050, L501.2300 ####[facility] [address] [place], [address] Globulin (S) [Mass/Vol] 2.2 g/dL Normal 2.2-4.2 [facility] Comment on above: Performed By: #### L 100.0100, L500.4050, L501.2300 ####[facility] [address] [place], [address] Glucose [Mass/Vol] 101 mg/dL High 70-99 [facility] Comment on above: Performed By: #### L 100.0100, L500.4050, L501.2300 ####[facility] [address] [place], [address] Potassium [Moles/Vol] 3.7 mmol/L Normal 3.3-5.1 [facility] Comment on above: Performed By: #### L 100.0100, L500.4050, L501.2300 ####[facility] [address] [place], [address] Sodium [Moles/Vol] 137 mmol/L Normal 133-145 [facility] Comment on above: Performed By: #### L 100.0100, L500.4050, L501.2300 ####[facility] [address] [place], [address] T PROT 5.6 g/dL Low 5.9-8.4 [facility] Comment on above: Performed By: #### L 100.0100, L500.4050, L501.2300 ####[facility] [address] [place], [address] Urea nitrogen [Mass/Vol] 14 mg/dL Normal 4-19 [facility] Comment on above: Performed By: #### L 100.0100, L500.4050, L501.2300 ####[facility] [address] [place], [address] Magnesiumon 02-01-2025 Magnesium [Mass/Vol] 1.7 mg/dL Normal 1.5-2.2 [facility] Comment on above: Order Comment: CMP C BCD-DUPLICATE ORDERS FROM PT TX PLAN Performed By: #### L 100.0100, L501.5200, L501.9520, L506.0400 ####[facility] [address] [place], [address] No Panel InformationOrdered By: Angela Rodriguez on 02-01-2025 1+ [facility] Oncology Visit Reporton 01-08 Oncology Visit Report Normal [facility] Ovalocyte detectionOrdered B y: Angela Rodriguez on 02-01-2025 Ovalocytes LM Ql (Bld) 1+ [facility] Phosphoruson 02-01-2025 Phosphate [Mass/Vol] 2.8 mg/dL Normal 2.7-4.5 [facility] Comment on above: Performed By: #### L 100.0100, L500.4050, L501.2300 ####[facility] [address] [place], [address] T4 Free Directon 02-01-2025 T4 FREE DIRECT 1.60 ng/dL High 0.76-1.46 [facility] Comment on above: Order Comment: CMP C BCD-DUPLICATE ORDERS FROM PT TX PLAN Performed By: #### L 100.0100, L501.5200, L501.9520, L506.0400 ####[facility] [address] [place], [address] T4 freeOrdered By: Angela goff on 02-01-2025 Free T4 [Mass/Vol] 1.60 ng/dL High 0.76-1.46 [facility] TSH DL <= 0.005 mIU/L QnOrde red By: Angela Rodriguez on 02-01-2025 TSH Qn 1.950 uIU/mL 0.300-4.200 [facility] Thyroid Stim Hormone (TSH)on 02-01-2025 TSH 1.950 uIU/mL Normal 0.300-4.200 [facility] Comment on above: Order Comment: CMP C BCD-DUPLICATE ORDERS FROM PT TX PLAN Performed By: #### L 100.0100, L501.5200, L501.9520, L506.0400 ####[facility] [address] [place], [address] 36on 01-23-2025 36 Left fabiola a detailed message and to call the office if any questions. Normal [facility] 36 Name of caller: Fabiola Contact phone number: [phone] Relationship to Patient: [facility] PT Provider: Dr. Jennings Practice: [facility] FP Chief Complaint/Reason for Call: Caller states today 01.23.2025, was patients first appointment. Will continue PT 2 x a week for 3 weeks for functional mobility training. FYI, thank you. Best time of day caller can be reached: Any Patient advised that office/PCP has 24-48 business hours to return their call: Yes [address] 01-20-2025 36 duplicate [facility] 36 S: Patient's nanci guadalupe with [facility] nurse regarding greenish-love coating on tongue. B: Onset of symptoms/concern began 2-3 days ago. A: Patient has a greenish-love pimple-like coating on his tongue that is causing pain. Patient can barely eat. Patient was discharged from [facility] 2 days ago, admitted with flu and COVID. looked at tongue just now, saw the coating and called. Nothing on cheeks or gums. Requesting Rx be sent to pharmacy. R: Paged Dr. Jennings, who messaged back that he sent in a Rx for nystatin solution. Relayed message patient via vague VM that Rx was sent to his pharmacy. Reason for Disposition [1] White patches that stick to tongue or inner cheek AND [2] can be wiped off Protocols used: Mouth [id number] [address] 01-19-2025 36 Spoke with jelena and all was addressed. [place] [address] Name of caller: Idris craig Contact phone number: [phone] Relationship to Patient: [facility] care Provider: Practice: [facility] Chief Complaint/Reason for Call: Jelena calling from [facility] and states they admitted for home care and she needs orders for nursing visits- Twice a week for one week, then once a week for 3 weeks. Also discharge papers state patient takes eliquis 2.5 BID but states its once a day. Patient is on 2 Liters O2 continuously but his O2 was around 88-90 with walking and she would like to know if you would like to change it to 2 Liters at rest and 3 Liters with activity. Please advise. Best time of day caller can be reached: any Patient advised that office/PCP has 24-48 business hours to return their call: no [place] [address] Dahiana was left a detailed message and to call the office if any questions. [address] 01-18-2025 36 Name of caller: Jose lieberman Contact phone number: [phone] [facility] Provider: Dr Jennings Practice: [facility] Chief Complaint/Reason for Call: Home care is asking if Dr Jennings will follow patient for at home jail, pt, ot. Please call verbal orders to Dahiana Kiser time of day caller can be reached: AM Patient advised that office/PCP has 24-48 business hours to return their call: Yes Normal [facility] SHS Culture, Blood (WB)on 2024 CUB Blood cultures x2, f rom two different sites No growth in 5 days. Normal [facility] Comment on above: Performed By: #### M 200.1000 ####[facility] [address] [place], [place], [address] Discharge Instructionon 01-07 Discharge Instruction Normal [facility] Magnesiumon 01-18-2025 Magnesium [Mass/Vol] 2.0 mg/dL Normal 1.5-2.2 [facility] Comment on above: Performed By: #### L 501.2300, L501.5200 ####[facility] [address] [place], [place], [address] Magnesium measurement (mass/ volume)Ordered By: Antwan Pitts on 01-18-2025 Magnesium (Unsp spec) [Mass/Vol] 2.0 mg/dL 1.5-2.2 [facility] Phosphoruson 01-18-2025 Phosphate [Mass/Vol] 2.0 mg/dL Low 2.7-4.5 [facility] Comment on above: Performed By: #### L 501.2300, L501.5200 ####[facility] [address] [place], [place], [address] Absolute lymphocyte countOrd ered By: Antwan Pitts on 01-17-2025 Lymphocytes Auto (Unsp spec) [#/Vol] 0.31 10*3/uL Low 0.83-4.51 [facility] Anion gap in Serum or Plasma Ordered By: Antwan Pitts on 01-17-2025 Anion gap [Moles/Vol] 16 mmol/L High 5-15 [facility] BUN/creatinine ratioOrdered By: Antwan Pitts on 01-17-2025 Urea nitrogen/Creatinine [Mass ratio] 11.3 mg/mg 08-28 [facility] Basic Metabolic Profile (BMP )on 01-17-2025 BUN/CRE 11.3 RATIO Normal 08-28 [facility] Comment on above: Performed By: #### L 501.5200, L100.0100, L500.2500 ####[facility] [address] [place], [address] Calcium [Mass/Vol] 7.1 mg/dL Low 7.6-11.0 [facility] Comment on above: Performed By: #### L 501.5200, L100.0100, L500.2500 ####[facility] [address] [place], [address] Chloride [Moles/Vol] 108 mmol/L Normal 98-108 [facility] Comment on above: Performed By: #### L 501.5200, L100.0100, L500.2500 ####[facility] [address] [place], [address] CO2 [Moles/Vol] 18.8 mmol/L Low 21.0-32.0 [facility] Comment on above: Performed By: #### L 501.5200, L100.0100, L500.2500 ####[facility] [address] [place], [address] Creatinine [Mass/Vol] 0.90 mg/dL Normal 0.70-1.20 [facility] Comment on above: Performed By: #### L 501.5200, L100.0100, L500.2500 ####[facility] [address] [place], [address] ECRCL 74.64 ml/min Normal 50-250 [facility] Comment on above: Performed By: #### L 501.5200, L100.0100, L500.2500 ####[facility] [address] [place], [address] GAP 16 High 5-15 [facility] Comment on above: Performed By: #### L 501.5200, L100.0100, L500.2500 ####[facility] [address] [place], [address] GFR/1.73 sq M.predicted among non-blacks MDRD (S/P/Bld) [Vol rate/Area] 91 mL/min/{1.73_m2} Normal >60 [facility] Comment on above: Result Comment: mL/m in/1.73m2 CKD-EPI Creatinine Equation (2020) Performed By: #### L 501.5200, L100.0100, L500.2500 ####[facility] [address] [place], [address] Glucose [Mass/Vol] 248 mg/dL High 70-99 [facility] Comment on above: Performed By: #### L 501.5200, L100.0100, L500.2500 ####[facility] [address] [place], [address] Potassium [Moles/Vol] 3.5 mmol/L Normal 3.3-5.1 [facility] Comment on above: Performed By: #### L 501.5200, L100.0100, L500.2500 ####[facility] [address] [place], [address] Sodium [Moles/Vol] 143 mmol/L Normal 133-145 [facility] Comment on above: Performed By: #### L 501.5200, L100.0100, L500.2500 ####[facility] [address] [place], [address] Urea nitrogen [Mass/Vol] 10 mg/dL Normal 4-19 [facility] Comment on above: Performed By: #### L 501.5200, L100.0100, L500.2500 ####[facility] [address] [place], [address] Blood band neutrophil count as percentage of total leukocytesOrdered By: Antwan Pitts on 01-17-2025 Band form neutrophils/100 WBC (Bld) 5 % 0-5 [facility] Blood lymphocytes/100 leukoc ytesOrdered By: Antwan Pitts on 01-17-2025 Lymphocytes/100 WBC (Bld) 3 % Low 19-41 [facility] Blood metamyelocytes/100 meera kocytesOrdered By: Antwan Pitts on 01-17-2025 Metamyelocytes/100 WBC (Bld) 4 % High 0-1 [facility] Blood monocytes/100 leukocyt esOrdered By: Antwan Pitts on 01-17-2025 Monocytes/100 WBC (Bld) 2 % 0-10 [facility] Blood promyelocytes/100 leuk ocytesOrdered By: Antwan Pitts on 01-17-2025 Promyelocytes/100 WBC (Bld) 1 % High 0-0 [facility] Blood segmented neutrophils/ 100 leukocytesOrdered By: Antwan Pitts on 01-17-2025 Segmented neutrophils/100 WBC (Bld) 82 % High 47-70 [facility] Carbon dioxide, total [Moles /volume] in Central venous bloodOrdered By: Antwan Pitts on 01-17-2025 CO2 [Moles/Vol] 18.8 mmol/L Low 21.0-32.0 [facility] Chloride assayOrdered By: Mikal Pitts on 01-17-2025 Chloride [Moles/Vol] 108 mmol/L 98-108 [facility] Erythrocyte distribution wid th ratioOrdered By: Antwan Pitts on 01-17-2025 Erythrocyte distribution width (RBC) [Ratio] 19.8 % High 11.6-14.6 [facility] Erythrocyte distribution wid th standard deviationOrdered By: Antwan Pitts on 01-17-2025 Erythrocyte distribution width (RBC) [Ratio] 49.1 fl High 35.1-43.9 [facility] Flex Sigmoidoscopy Reporton 01-17-2025 Flex Sigmoidoscopy Report Normal [facility] Glomerular filtration rate ( GFR) estimation/1.73 sq m using serum, plasma, or whole bOrdered By: Antwan Pitts on 01-17-2025 GFR/1.73 sq M.predicted among non-blacks MDRD (S/P/Bld) [Vol rate/Area] 91 mL/min/{1.73_m2} >60 [facility] Hematocrit Auto (Bld) [Volum e fraction]Ordered By: Antwan Pitts on 01-17-2025 Hematocrit (Bld) [Volume fraction] 37.2 % Low 40-54 [facility] Hemoglobin measurementOrdere d By: Antwan Pitts on 01-17-2025 Hemoglobin (Bld) [Mass/Vol] 12.2 g/dL Low 13.0-16.5 [facility] MCV (mean corpuscular volume ) determinationOrdered By: Antwan Pitts on 01-17-2025 MCV (RBC) [Entitic vol] 71.1 fL Low 80-94 [facility] MR/POSTOP.ANEon 01-17-2025 MR/POSTOP.ANE Normal [facility] MR/KCHJXKIL5vn 01-17-2025 MR/POSTOPAN2 Normal [facility] Magnesiumon 01-17-2025 Magnesium [Mass/Vol] 1.8 mg/dL Normal 1.5-2.2 [facility] Comment on above: Performed By: #### L 501.5200, L100.0100, L500.2500 ####[facility] [address] [facility] [place], [place], [id number] Mean corpuscular hemoglobin (MCH) determinationOrdered By: Antwan Pitts on 01-17-2025 MCH (RBC) [Entitic mass] 23.3 pg Low 27.0-32.0 [facility] Phosphoruson 01-17-2025 Phosphate [Mass/Vol] 3.0 mg/dL Normal 2.7-4.5 [facility] Comment on above: Performed By: #### L 501.2300 ####[facility] [address] [place], [place], [address] Platelet countOrdered By: Mikal Pitts on 01-17-2025 Platelets (Bld) [#/Vol] 134 10*3/uL Low 150-450 [facility] Platelet estimateOrdered By: Antwan Pitts on 01-17-2025 Platelets LM Ql (Bld) SLT DEC ADEQ [facility] Platelet morphologyOrdered B y: Antwan Pitts on 01-17-2025 Platelet morphology finding Nom (Bld) G [facility] Potassium measurement (mass/ volume)Ordered By: Antwan Pitts on 01-17-2025 Potassium (Unsp spec) [Mass/Vol] 3.5 mmol/L 3.3-5.1 [facility] RBC Auto (Bld) [#/Vol]Ordere d By: Antwan Pitts on 01-17-2025 RBC (Bld) [#/Vol] 5.23 10*6/uL 4.6-6.2 [facility] Review by pathologistOrdered By: Antwan Pitts on 01-17-2025 Pathologist review [place] (Unsp spec) [Interp] N/A [facility] Serum creatinine measurement (mass/volume)Ordered By: Antwan Pitts on 01-17-2025 Creatinine [Mass/Vol] 0.90 mg/dL 0.70-1.20 [facility] Serum glucose measurement (m ass/volume)Ordered By: Antwan Pitts on 01-17-2025 Glucose [Mass/Vol] 248 mg/dL High 70-99 [facility] Serum or plasma calcium deangelo urement (mass/volume)Ordered By: Antwan Pitts on 01-17-2025 Calcium [Mass/Vol] 7.1 mg/dL Low 7.6-11.0 [facility] Serum or plasma urea nitroge n measurement (mass/volume)Ordered By: Antwan Pitts on 01-17-2025 Urea nitrogen [Mass/Vol] 10 mg/dL 4-19 [facility] Sodium levelOrdered By: Ajit Pitts on 01-17-2025 Sodium [Moles/Vol] 143 mmol/L 133-145 [facility] Surgery Specimen Level Alina 01-17-2025 Surgery Specimen Level IV Normal [facility] Comment on above: Performed By: #### P SUIV ####[facility] [address] [place], [address] Total cell countOrdered By: Antwan Pitts on 01-17-2025 Cells counted Molgen (Bld/Tiss) [#] 100 MANUAL DIFF [facility] White blood cell (WBC) count Ordered By: Antwan Pitts on 01-17-2025 WBC (Bld) [#/Vol] 10.4 10*3/uL 4.4-11.0 [facility] Basic Metabolic Profile (BMP )on 01-16-2025 BUN/CRE 17.0 RATIO Normal 10-20 [facility] Comment on above: Performed By: #### L 501.5200, L500.2500, L100.0100 ####[facility] [address] [place], [address] Calcium [Mass/Vol] 7.3 mg/dL Low 7.6-11.0 [facility] Comment on above: Performed By: #### L 501.5200, L500.2500, L100.0100 ####[facility] [address] [place], [address] Chloride [Moles/Vol] 112 mmol/L High 98-108 [facility] Comment on above: Performed By: #### L 501.5200, L500.2500, L100.0100 ####[facility] [address] [place], [address] CO2 [Moles/Vol] 18.3 mmol/L Low 21.0-32.0 [facility] Comment on above: Performed By: #### L 501.5200, L500.2500, L100.0100 ####[facility] [address] [place], [address] Creatinine [Mass/Vol] 0.79 mg/dL Normal 0.70-1.20 [facility] Comment on above: Performed By: #### L 501.5200, L500.2500, L100.0100 ####[facility] [address] [place], [address] ECRCL 84.07 ml/min Normal 50-250 [facility] Comment on above: Performed By: #### L 501.5200, L500.2500, L100.0100 ####[facility] [address] [place], [address] GAP 14 Normal 5-15 [facility] Comment on above: Performed By: #### L 501.5200, L500.2500, L100.0100 ####[facility] [address] [place], [address] GFR/1.73 sq M.predicted among non-blacks MDRD (S/P/Bld) [Vol rate/Area] 95 mL/min/{1.73_m2} Normal >60 [facility] Comment on above: Result Comment: mL/m in/1.73m2 CKD-EPI Creatinine Equation (2020) Performed By: #### L 501.5200, L500.2500, L100.0100 ####[facility] [address] [place], [address] Glucose [Mass/Vol] 221 mg/dL High 70-99 [facility] Comment on above: Performed By: #### L 501.5200, L500.2500, L100.0100 ####[facility] [address] [place], [address] Potassium [Moles/Vol] 3.4 mmol/L Normal 3.3-5.1 [facility] Comment on above: Performed By: #### L 501.5200, L500.2500, L100.0100 ####[facility] [address] [place], [address] Sodium [Moles/Vol] 144 mmol/L Normal 133-145 [facility] Comment on above: Performed By: #### L 501.5200, L500.2500, L100.0100 ####[facility] [address] [place], [address] Urea nitrogen [Mass/Vol] 13 mg/dL Normal 4-19 [facility] Comment on above: Performed By: #### L 501.5200, L500.2500, L100.0100 ####[facility] [address] [place], [address] Blood schistocyte detection by light microscopyOrdered By: Antwan Pitts on 01-16-2025 Schistocytes LM Ql (Bld) RARE [facility] Blood vacuolated neutrophils detection by light microscopyOrdered By: Antwan Pitts on 01-16-2025 Neutrophils.vacuolated LM Ql (Bld) 1+ [facility] Brain/Head W/WO Contraston 0 01-16-2025 Brain/Head W/WO Contrast Normal [facility] Magnesiumon 01-16-2025 Magnesium [Mass/Vol] 1.8 mg/dL Normal 1.5-2.2 [facility] Comment on above: Performed By: #### L 501.5200, L500.2500, L100.0100 ####[facility] [address] [place], [address] No Panel InformationOrdered By: Antwan Pitts on 01-16-2025 1+ [facility] Ovalocyte detectionOrdered B y: Antwan Pitts on 01-16-2025 Ovalocytes LM Ql (Bld) 1+ [facility] Phosphoruson 01-16-2025 Phosphate [Mass/Vol] 2.3 mg/dL Low 2.7-4.5 [facility] Comment on above: Performed By: #### L 501.2300 ####[facility] [address] [place], [address] Toxic leukocyte granulation detectionOrdered By: Antwan Pitts on 01-16-2025 Toxic granules LM Ql (Bld) 3+ [facility] Trough vancomycin levelOrder ed By: Antwan Pitts on 01-16-2025 Vancomycin trough [Mass/Vol] 15.3 ug/mL High 5.0-15.0 [facility] Vancomycin, Trough Levelon 0 - VANCO, TROUGH 15.3 ug/mL High 5.0-15.0 [facility] Comment on above: Order Comment: 0400 Result Comment: Tim mmended goal trough ranges are generally 10-15 mcg/mlfor less severe/complicated infections such as cellulitisor UTI and 15-20 mcg/ml for more severe/complicatedinfections such as bacteremia/sepsis, osteomyelitis,pneumonia or meningitis. Goal trough ranges should takeinto account indication, patient-specific factors andorganism CRYSTAL.VANCOMYCIN STANDARED DRUG THERAPY TROUGH LEVEL: 5.0 - 15.0 mg/LVANCOMYCIN HIGH INTENSITY THERAPY TROUGH LEVEL: 15.0 - 20.0 mg/LHigh Intensity therapy recommended for serious lifethreatening infections include:- Pfuprsyrzi-Wxwblkloqqge-Iwahplscm (Ventilator/Healtcare Associated)-SepsisPLEASE CONTACT PHARMACY SERVICES (#0310) FOR INTERPRETATIONOF RESULTS. Performed By: #### L 501.8820 ####[facility] [address] [place], [place], [id number] Basic Metabolic Profile (BMP )on 01-15-2025 BUN/CRE 19.7 RATIO Normal 10-20 [facility] Comment on above: Performed By: #### L 500.3400, L501.5200, L500.2500, L501.2300, L100.0100 ####[facility] [address] [place], [address] Calcium [Mass/Vol] 7.6 mg/dL Normal 7.6-11.0 [facility] Comment on above: Performed By: #### L 500.3400, L501.5200, L500.2500, L501.2300, L100.0100 ####[facility] [address] [place], [address] Chloride [Moles/Vol] 114 mmol/L High 98-108 [facility] Comment on above: Performed By: #### L 500.3400, L501.5200, L500.2500, L501.2300, L100.0100 ####[facility] [address] [place], [address] CO2 [Moles/Vol] 18.7 mmol/L Low 21.0-32.0 [facility] Comment on above: Performed By: #### L 500.3400, L501.5200, L500.2500, L501.2300, L100.0100 ####[facility] [address] [place], [address] Creatinine [Mass/Vol] 0.95 mg/dL Normal 0.70-1.20 [facility] Comment on above: Performed By: #### L 500.3400, L501.5200, L500.2500, L501.2300, L100.0100 ####[facility] [address] [place], [address] ECRCL 70.47 ml/min Normal 50-250 [facility] Comment on above: Performed By: #### L 500.3400, L501.5200, L500.2500, L501.2300, L100.0100 ####[facility] [address] [place], [address] GAP 13 Normal 5-15 [facility] Comment on above: Performed By: #### L 500.3400, L501.5200, L500.2500, L501.2300, L100.0100 ####[facility] [address] [place], [address] GFR/1.73 sq M.predicted among non-blacks MDRD (S/P/Bld) [Vol rate/Area] 86 mL/min/{1.73_m2} Normal >60 [facility] Comment on above: Result Comment: mL/m in/1.73m2 CKD-EPI Creatinine Equation (2020) Performed By: #### L 500.3400, L501.5200, L500.2500, L501.2300, L100.0100 ####[facility] [address] [place], [address] Glucose [Mass/Vol] 238 mg/dL High 70-99 [facility] Comment on above: Performed By: #### L 500.3400, L501.5200, L500.2500, L501.2300, L100.0100 ####[facility] [address] [place], [address] Potassium [Moles/Vol] 2.8 mmol/L Low 3.3-5.1 [facility] Comment on above: Performed By: #### L 500.3400, L501.5200, L500.2500, L501.2300, L100.0100 ####[facility] [address] [place], [address] Sodium [Moles/Vol] 146 mmol/L High 133-145 [facility] Comment on above: Performed By: #### L 500.3400, L501.5200, L500.2500, L501.2300, L100.0100 ####[facility] [address] [place], [address] Urea nitrogen [Mass/Vol] 19 mg/dL Normal 4-19 [facility] Comment on above: Performed By: #### L 500.3400, L501.5200, L500.2500, L501.2300, L100.0100 ####[facility] [address] [place], [address] Bilirubin directOrdered By: Antwan Pitts on 01-15-2025 Bilirubin.direct [Mass/Vol] 0.27 mg/dL Normal 0.00-0.30 [facility] Comment on above: Performed By: #### L 500.3400, L501.5200, L500.2500, L501.2300, L100.0100 ####[facility] [address] [place], [address] Bilirubin, totalOrdered By: Antwan Pitts on 01-15-2025 Bilirubin [Mass/Vol] 0.38 mg/dL Normal 0.00-1.30 [facility] Comment on above: Performed By: #### L 500.3400, L501.5200, L500.2500, L501.2300, L100.0100 ####[facility] [address] [place], [address] Erythrocyte morphology asses smentOrdered By: Antwan Pitts on 01-15-2025 RBC morphology finding Nom (Bld) NORM C+C NORMAL NORM C&C [facility] Liver Profileon 01-15-2025 ALK PHOS 84 U/L Normal 40-129 [facility] Comment on above: Performed By: #### L 500.3400, L501.5200, L500.2500, L501.2300, L100.0100 ####[facility] [address] [place], [address] AST [Catalytic activity/Vol] 54 U/L High <=37 [facility] Comment on above: Performed By: #### L 500.3400, L501.5200, L500.2500, L501.2300, L100.0100 ####[facility] [address] [place], [address] T PROT 5.0 g/dL Low 5.9-8.4 [facility] Comment on above: Performed By: #### L 500.3400, L501.5200, L500.2500, L501.2300, L100.0100 ####[facility] [address] [place], [address] Magnesiumon 01-15-2025 Magnesium [Mass/Vol] 2.2 mg/dL Normal 1.5-2.2 [facility] Comment on above: Performed By: #### L 500.3400, L501.5200, L500.2500, L501.2300, L100.0100 ####[facility] [address] [place], [address] No Panel InformationOrdered By: Antwan Pitts on 01-15-2025 54 U/L High <38 [facility] Phosphoruson 01-15-2025 Phosphate [Mass/Vol] 1.3 mg/dL Invalid Interpretation Code 2.7-4.5 [facility] Comment on above: Performed By: #### L 500.3400, L501.5200, L500.2500, L501.2300, L100.0100 ####[facility] [address] [place], [address] Respiratory Cultureon 2024 RESPC Normal [facility] Comment on above: Performed By: #### M 100.2400, M100.2000 ####[facility] [address] [place], [address] Serum globulin measurementOr dered By: Antwan Pitts on 01-15-2025 Globulin (S) [Mass/Vol] 2.0 g/dL Low 2.2-4.2 [facility] Comment on above: Performed By: #### L 500.3400, L501.5200, L500.2500, L501.2300, L100.0100 ####[facility] [address] [place], [address] Serum or plasma alanine kong otransferase (ALT) measurementOrdered By: Antwan Pitts on 01-15-2025 ALT [Catalytic activity/Vol] 27 U/L Normal <=46 [facility] Comment on above: Performed By: #### L 500.3400, L501.5200, L500.2500, L501.2300, L100.0100 ####[facility] [address] [place], [address] Serum or plasma albumin deangelo urement (mass/volume)Ordered By: Antwan Pitts on 01-15-2025 Albumin [Mass/Vol] 3.0 g/dL Low 3.4-4.8 [facility] Comment on above: Performed By: #### L 500.3400, L501.5200, L500.2500, L501.2300, L100.0100 ####[facility] [address] [place], [address] Serum or plasma alkaline alie sphatase measurementOrdered By: Antwan Pitts on 01-15-2025 ALP [Catalytic activity/Vol] 84 U/L 40-129 [facility] Total proteinOrdered By: Gigi Pitts on 01-15-2025 Protein [Mass/Vol] 5.0 g/dL Low 5.9-8.4 [facility] Basic Metabolic Profile (BMP )on 01-14-2025 BUN/CRE 21.5 RATIO High 10-20 [facility] Comment on above: Performed By: #### L 500.2500, L100.0100 ####[facility] [address] [place], [address] Calcium [Mass/Vol] 8.0 mg/dL Normal 7.6-11.0 [facility] Comment on above: Performed By: #### L 500.2500, L100.0100 ####[facility] [address] [place], [address] Chloride [Moles/Vol] 112 mmol/L High 98-108 [facility] Comment on above: Performed By: #### L 500.2500, L100.0100 ####[facility] [address] [place], [address] CO2 [Moles/Vol] 15.0 mmol/L Low 21.0-32.0 [facility] Comment on above: Performed By: #### L 500.2500, L100.0100 ####[facility] [address] [place], [address] Creatinine [Mass/Vol] 1.28 mg/dL High 0.70-1.20 [facility] Comment on above: Performed By: #### L 500.2500, L100.0100 ####[facility] [address] [place], [address] ECRCL 53.86 ml/min Normal 50-250 [facility] Comment on above: Performed By: #### L 500.2500, L100.0100 ####[facility] [address] [place], [address] GAP 18 High 5-15 [facility] Comment on above: Performed By: #### L 500.2500, L100.0100 ####[facility] [address] [place], [address] GFR/1.73 sq M.predicted among non-blacks MDRD (S/P/Bld) [Vol rate/Area] 60 mL/min/{1.73_m2} Normal >60 [facility] Comment on above: Result Comment: mL/m in/1.73m2 CKD-EPI Creatinine Equation (2020) Performed By: #### L 500.2500, L100.0100 ####[facility] [address] [place], [address] Glucose [Mass/Vol] 171 mg/dL High 70-99 [facility] Comment on above: Performed By: #### L 500.2500, L100.0100 ####[facility] [address] [place], [address] Potassium [Moles/Vol] 3.4 mmol/L Normal 3.3-5.1 [facility] Comment on above: Performed By: #### L 500.2500, L100.0100 ####[facility] [address] [place], [address] Sodium [Moles/Vol] 145 mmol/L Normal 133-145 [facility] Comment on above: Performed By: #### L 500.2500, L100.0100 ####[facility] [address] [place], [address] Urea nitrogen [Mass/Vol] 28 mg/dL High 4-19 [facility] Comment on above: Performed By: #### L 500.2500, L100.0100 ####[facility] [address] [place], [address] Blood manual differential co mment interpretation (narrative result)Ordered By: Sayra Fuentes on 01-14-2025 Manual differential comment Obinna (Bld) [Interp] SCANNED [facility] CBC W/Diff, Automatedon Absolute Lymph 0.60 X10 3/uL Low 0.83-4.51 [facility] Comment on above: Performed By: #### L 500.2500, L100.0100 ####[facility] [address] [place], [address] Absolute Neut 4.2 X10 3/uL Normal 2.0-7.7 [facility] Comment on above: Performed By: #### L 500.2500, L100.0100 ####[facility] [address] [place], [address] PATH REV May foll Normal [facility] Comment on above: Performed By: #### L 500.2500, L100.0100 ####[facility] [address] [place], [address] SMEAR COMMENT SCANNED Normal [facility] Comment on above: Result Comment: LEFT SHIFT: BANDS PRESENT 2+ Performed By: #### L 500.2500, L100.0100 ####[facility] [address] [place], [address] TOXIC GRAN 2+ Normal [facility] Comment on above: Performed By: #### L 500.2500, L100.0100 ####[facility] [address] [place], [address] BAND 44 High 0-5 [facility] Comment on above: Performed By: #### L 500.2500, L100.0100 ####[facility] [address] [place], [address] Lymphocytes (Bld) [#/Vol] 12 10*3/uL Low 19-41 [facility] Comment on above: Performed By: #### L 500.2500, L100.0100 ####[facility] [address] [place], [address] MONOCYTE 4 Normal 0-10 [facility] Comment on above: Performed By: #### L 500.2500, L100.0100 ####[facility] [address] [place], [address] SEGS 40 Low 47-70 [facility] Comment on above: Performed By: #### L 500.2500, L100.0100 ####[facility] [address] [place], [address] TOTAL CELLS 100 Normal MANUAL DIFF [facility] Comment on above: Performed By: #### L 500.2500, L100.0100 ####[facility] [address] [place], [address] Vancomycin, Trough Levelon 0 3- VANCO, TROUGH 9.3 ug/mL Normal 5.0-15.0 [facility] Comment on above: Order Comment: Comme nts: DRAW 30 MIN PRIOR TO [id number] Result Comment: Tim mmended goal trough ranges are generally 10-15 mcg/mlfor less severe/complicated infections such as cellulitisor UTI and 15-20 mcg/ml for more severe/complicatedinfections such as bacteremia/sepsis, osteomyelitis,pneumonia or meningitis. Goal trough ranges should takeinto account indication, patient-specific factors andorganism CRYSTAL.VANCOMYCIN STANDARED DRUG THERAPY TROUGH LEVEL: 5.0 - 15.0 mg/LVANCOMYCIN HIGH INTENSITY THERAPY TROUGH LEVEL: 15.0 - 20.0 mg/LHigh Intensity therapy recommended for serious lifethreatening infections include:- Okkjgkngfh-Gudycfkeviye-Dkbljkfrc (Ventilator/Healtcare Associated)-SepsisPLEASE CONTACT PHARMACY SERVICES (#3778) FOR INTERPRETATIONOF RESULTS. Performed By: #### L 501.8873 ####[facility] [address] [place], [address] Blood basophils/100 leukocyt esOrdered By: Katlin Dwyer on 01-13-2025 Basophils/100 WBC (Bld) 1 % 0-1 [facility] Comprehensive Metabolic Prof ilon 01-13-2025 Albumin [Mass/Vol] 2.8 g/dL Low 3.4-4.8 [facility] Comment on above: Performed By: #### L 500.4050, L300.3900, L100.0100 ####[facility] [address] [place], [address] Albumin/Globulin [Mass ratio] 1.2 {ratio} Normal 0.9-2.4 [facility] Comment on above: Performed By: #### L 500.4050, L300.3900, L100.0100 ####[facility] [address] [place], [address] ALK PHOS 62 U/L Normal 40-129 [facility] Comment on above: Performed By: #### L 500.4050, L300.3900, L100.0100 ####[facility] [address] [place], [address] ALT [Catalytic activity/Vol] 22 U/L Normal <=46 [facility] Comment on above: Performed By: #### L 500.4050, L300.3900, L100.0100 ####[facility] [address] [place], [address] AST [Catalytic activity/Vol] 57 U/L High <=37 [facility] Comment on above: Performed By: #### L 500.4050, L300.3900, L100.0100 ####[facility] [address] [place], [address] Bilirubin [Mass/Vol] 0.34 mg/dL Normal 0.00-1.30 [facility] Comment on above: Performed By: #### L 500.4050, L300.3900, L100.0100 ####[facility] [address] [place], [address] BUN/CRE 18.3 RATIO Normal 10-20 [facility] Comment on above: Performed By: #### L 500.4050, L300.3900, L100.0100 ####[facility] [address] [place], [address] Calcium [Mass/Vol] 8.0 mg/dL Normal 7.6-11.0 [facility] Comment on above: Performed By: #### L 500.4050, L300.3900, L100.0100 ####[facility] [address] [place], [address] Chloride [Moles/Vol] 108 mmol/L Normal 98-108 [facility] Comment on above: Performed By: #### L 500.4050, L300.3900, L100.0100 ####[facility] [address] [place], [address] CO2 [Moles/Vol] 11.5 mmol/L Low 21.0-32.0 [facility] Comment on above: Performed By: #### L 500.4050, L300.3900, L100.0100 ####[facility] [address] [place], [address] Creatinine [Mass/Vol] 1.63 mg/dL High 0.70-1.20 [facility] Comment on above: Performed By: #### L 500.4050, L300.3900, L100.0100 ####[facility] [address] [place], [address] ECRCL 42.51 ml/min Low 50-250 [facility] Comment on above: Performed By: #### L 500.4050, L300.3900, L100.0100 ####[facility] [address] [place], [address] GAP 23 High 5-15 [facility] Comment on above: Performed By: #### L 500.4050, L300.3900, L100.0100 ####[facility] [address] [place], [address] GFR/1.73 sq M.predicted among non-blacks MDRD (S/P/Bld) [Vol rate/Area] 45 mL/min/{1.73_m2} Low >60 [facility] Comment on above: Result Comment: mL/m in/1.73m2 CKD-EPI Creatinine Equation (2020) Performed By: #### L 500.4050, L300.3900, L100.0100 ####[facility] [address] [place], [address] Globulin (S) [Mass/Vol] 2.3 g/dL Normal 2.2-4.2 [facility] Comment on above: Performed By: #### L 500.4050, L300.3900, L100.0100 ####[facility] [address] [place], [address] Glucose [Mass/Vol] 139 mg/dL High 70-99 [facility] Comment on above: Performed By: #### L 500.4050, L300.3900, L100.0100 ####[facility] [address] [place], [address] Potassium [Moles/Vol] 3.9 mmol/L Normal 3.3-5.1 [facility] Comment on above: Performed By: #### L 500.4050, L300.3900, L100.0100 ####[facility] [address] [place], [address] Sodium [Moles/Vol] 142 mmol/L Normal 133-145 [facility] Comment on above: Performed By: #### L 500.4050, L300.3900, L100.0100 ####[facility] [address] [place], [address] T PROT 5.1 g/dL Low 5.9-8.4 [facility] Comment on above: Performed By: #### L 500.4050, L300.3900, L100.0100 ####[facility] [address] [place], [address] Urea nitrogen [Mass/Vol] 30 mg/dL High 4-19 [facility] Comment on above: Performed By: #### L 500.4050, L300.3900, L100.0100 ####[facility] [address] [place], [address] Crenated erythrocyte detecti on by light microscopyOrdered By: Katlin Dwyer on 01-13-2025 Kezia cells LM Ql (Bld) 2+ [facility] Prothrombin Time w/INRon INR Coag (PPP) [Relative time] 1.6 {INR} Normal [facility] Comment on above: Performed By: #### L 500.4050, L300.3900, L100.0100 ####[facility] [address] [place], [address] PT Coag (PPP) [Time] 19.7 s High 11.7-14.9 [facility] Comment on above: Performed By: #### L 500.4050, L300.3900, L100.0100 ####[facility] [address] [place], [address] Prothrombin timeOrdered By: Katlin Dwyer on 01-13-2025 PT Coag (PPP) [Time] 19.7 s High 11.7-14.9 [facility] Serum or plasma albumin/glob ulin mass ratioOrdered By: Katlin Dwyer on 01-13-2025 Albumin/Globulin [Mass ratio] 1.2 {ratio} 0.9-2.4 [facility] Assessment of wrist artery p atency prior to arterial punctureOrdered By: Katlin Dwyer on 01-12-2025 Arterial patency Wrist artery --pre arterial puncture Positive [facility] Automated lymphocyte count a s percentage of total leukocytesOrdered By: Katlin Dwyer on 01-12-2025 Lymphocytes/100 WBC Auto (Unsp spec) 11.1 % Low 19-41 [facility] Basophil percentageOrdered B y: Katlin Dwyer on 01-12-2025 Basophils/100 WBC (Bld) 1.1 % High 0-1 [facility] Blood Gases by CPSon 025 ADAL TEST Positive Normal [facility] Comment on above: Performed By: #### L 9000.0800 ####[facility] [address] [place], [address] Base excess Calc (Bld) [Moles/Vol] -10 mmol/L Low -2 to +2 [facility] Comment on above: Performed By: #### L 9000.0800 ####[facility] [address] [place], [address] Blood Gas Type ART Normal [facility] Comment on above: Performed By: #### L 9000.0800 ####[facility] [address] [place], [address] CO2 [Moles/Vol] 16 mmol/L Normal [facility] Comment on above: Performed By: #### L 9000.0800 ####[facility] [address] [place], [address] FI02 12.0 Normal [facility] Comment on above: Performed By: #### L 9000.0800 ####[facility] [address] [place], [address] HCO3 (Bld) [Moles/Vol] 15.3 mmol/L Low 22-26 [facility] Comment on above: Performed By: #### L 9000.0800 ####[facility] [address] [place], [address] Mode Not entered Normal [facility] Comment on above: Performed By: #### L 8999.0800 ####[facility] [address] [place], [address] O2 Delivery Dev Cannula Normal [facility] Comment on above: Performed By: #### L 0.0800 ####[facility] [address] [place], [address] pCO2 25.0 mmHg Low 35-45 [facility] Comment on above: Performed By: #### L 0.0800 ####[facility] [address] [place], [address] pH (Bld) 7.40 [pH] Normal 7.35-7.45 [facility] Comment on above: Performed By: #### L 9000.0800 ####[facility] [address] [place], [address] PO2 85 mmHG Normal 75-100 [facility] Comment on above: Performed By: #### L 0.0800 ####[facility] [address] [place], [address] RR 38 Normal [facility] Comment on above: Performed By: #### L 0.0800 ####[facility] [address] [place], [address] SITE R Radial Normal [facility] Comment on above: Performed By: #### L 0.0800 ####[facility] [address] [place], [address] SO2 97 Normal 95-99 [facility] Comment on above: Performed By: #### L 9000.0800 ####[facility] [address] [place], [address] Blood base excess determinat ionOrdered By: Katlin Dwyer on 01-12-2025 Base excess Calc (BldV) [Moles/Vol] -10 mmol/L Low -2-2 [facility] Blood bicarbonate measuremen tOrdered By: Katlin Dwyer on 01-12-2025 HCO3 (Bld) [Moles/Vol] 15.3 mmol/L Low 22-26 [facility] Blood cultureOrdered By: Wiliam Dwyer on 01-12-2025 Bacteria identified Cx Nom (Bld) No growth in 5 days. [facility] CBC W/Diff, Automatedon 03- Absolute Lymph 0.92 X10 3/uL Normal 0.83-4.51 [facility] Comment on above: Performed By: #### L 500.4050, L100.0100 ####[facility] [address] [place], [address] Absolute Neut 6.0 X10 3/uL Normal 2.0-7.7 [facility] Comment on above: Performed By: #### L 500.4050, L100.0100 ####[facility] [address] [place], [address] Basophils/100 WBC (Bld) 1.1 % High 0-1 [facility] Comment on above: Performed By: #### L 500.4050, L100.0100 ####[facility] [address] [place], [address] Eosinophils/100 WBC (Bld) 0.4 % Normal 0-5 [facility] Comment on above: Performed By: #### L 500.4050, L100.0100 ####[facility] [address] [place], [address] Erythrocyte distribution width (RBC) [Ratio] 19.8 % High 11.6-14.6 [facility] Comment on above: Performed By: #### L 500.4050, L100.0100 ####[facility] [address] [place], [address] Hematocrit (Bld) [Volume fraction] 37.2 % Low 40-54 [facility] Comment on above: Performed By: #### L 500.4050, L100.0100 ####[facility] [address] [place], [address] Hemoglobin (Bld) [Mass/Vol] 11.7 g/dL Low 13.0-16.5 [facility] Comment on above: Performed By: #### L 500.4050, L100.0100 ####[facility] [address] [place], [address] IG% 2.800 High 0.0-0.9 [facility] Comment on above: Result Comment: IG% - Immature Granulocytes (promyelocytes, myelocytes andmetamyelocytes) > 1% indicates that a LEFT SHIFT is Present. Performed By: #### L 500.4050, L100.0100 ####[facility] [address] [place], [address] Lymphocytes/100 WBC (Bld) 11.1 % Low 19-41 [facility] Comment on above: Performed By: #### L 500.4050, L100.0100 ####[facility] [address] [place], [address] MCH (RBC) [Entitic mass] 23.0 pg Low 27.0-32.0 [facility] Comment on above: Performed By: #### L 500.4050, L100.0100 ####[facility] [address] [place], [address] MCHC (RBC) [Mass/Vol] 31.5 g/dL Low 32-36 [facility] Comment on above: Performed By: #### L 500.4050, L100.0100 ####[facility] [address] [place], [address] MCV (RBC) [Entitic vol] 73.2 fL Low 80-94 [facility] Comment on above: Performed By: #### L 500.4050, L100.0100 ####[facility] [address] [place], [address] Monocytes/100 WBC (Bld) 12.0 % High 0-10 [facility] Comment on above: Performed By: #### L 500.4050, L100.0100 ####[facility] [address] [place], [address] Neutrophils/100 WBC (Bld) 72.6 % High 47-70 [facility] Comment on above: Performed By: #### L 500.4050, L100.0100 ####[facility] [address] [place], [address] Nucleated RBC (Bld) [#/Vol] 0 10*3/uL Normal 0-5 [facility] Comment on above: Performed By: #### L 500.4050, L100.0100 ####[facility] [address] [place], [address] Platelet mean volume (Bld) [Entitic vol] 9.8 fL Normal 6.2-12.0 [facility] Comment on above: Performed By: #### L 500.4050, L100.0100 ####[facility] [address] [place], [address] Platelets (Bld) [#/Vol] 171 10*3/uL Normal 150-450 [facility] Comment on above: Performed By: #### L 500.4050, L100.0100 ####[facility] [address] [place], [address] RBC (Bld) [#/Vol] 5.08 10*6/uL Normal 4.6-6.2 [facility] Comment on above: Performed By: #### L 500.4050, L100.0100 ####[facility] [address] [place], [address] RDW SD 51.6 fl High 35.1-43.9 [facility] Comment on above: Performed By: #### L 500.4050, L100.0100 ####[facility] [address] [place], [address] WBC (Bld) [#/Vol] 8.3 10*3/uL Normal 4.4-11.0 [facility] Comment on above: Performed By: #### L 500.4050, L100.0100 ####[facility] [address] [place], [address] Comprehensive Metabolic Prof ilon 01-12-2025 Albumin [Mass/Vol] 2.6 g/dL Low 3.4-4.8 [facility] Comment on above: Performed By: #### L 500.4050, L100.0100 ####[facility] [address] [place], [address] Albumin/Globulin [Mass ratio] 1.3 {ratio} Normal 0.9-2.4 [facility] Comment on above: Performed By: #### L 500.4050, L100.0100 ####[facility] [address] [place], [address] ALK PHOS 57 U/L Normal 40-129 [facility] Comment on above: Performed By: #### L 500.4050, L100.0100 ####[facility] [address] [place], [address] ALT [Catalytic activity/Vol] 17 U/L Normal <=46 [facility] Comment on above: Performed By: #### L 500.4050, L100.0100 ####[facility] [address] [place], [address] AST [Catalytic activity/Vol] 56 U/L High <=37 [facility] Comment on above: Performed By: #### L 500.4050, L100.0100 ####[facility] [address] [place], [address] Bilirubin [Mass/Vol] 0.40 mg/dL Normal 0.00-1.30 [facility] Comment on above: Performed By: #### L 500.4050, L100.0100 ####[facility] [address] [place], [address] BUN/CRE 11.6 RATIO Normal 10-20 [facility] Comment on above: Performed By: #### L 500.4050, L100.0100 ####[facility] [address] [place], [address] Calcium [Mass/Vol] 7.9 mg/dL Normal 7.6-11.0 [facility] Comment on above: Performed By: #### L 500.4050, L100.0100 ####[facility] [address] [place], [address] Chloride [Moles/Vol] 106 mmol/L Normal 98-108 [facility] Comment on above: Performed By: #### L 500.4050, L100.0100 ####[facility] [address] [place], [address] CO2 [Moles/Vol] 15.4 mmol/L Low 21.0-32.0 [facility] Comment on above: Performed By: #### L 500.4050, L100.0100 ####[facility] [address] [place], [address] Creatinine [Mass/Vol] 1.97 mg/dL High 0.70-1.20 [facility] Comment on above: Performed By: #### L 500.4050, L100.0100 ####[facility] [address] [place], [address] ECRCL 34.96 ml/min Low 50-250 [facility] Comment on above: Performed By: #### L 500.4050, L100.0100 ####[facility] [address] [place], [address] GAP 16 High 5-15 [facility] Comment on above: Performed By: #### L 500.4050, L100.0100 ####[facility] [address] [place], [address] GFR/1.73 sq M.predicted among non-blacks MDRD (S/P/Bld) [Vol rate/Area] 36 mL/min/{1.73_m2} Low >60 [facility] Comment on above: Result Comment: mL/m in/1.73m2 CKD-EPI Creatinine Equation (2020) Performed By: #### L 500.4050, L100.0100 ####[facility] [address] [place], [address] Globulin (S) [Mass/Vol] 1.9 g/dL Low 2.2-4.2 [facility] Comment on above: Performed By: #### L 500.4050, L100.0100 ####[facility] [address] [place], [address] Glucose [Mass/Vol] 78 mg/dL Normal 70-99 [facility] Comment on above: Performed By: #### L 500.4050, L100.0100 ####[facility] [address] [place], [address] Potassium [Moles/Vol] 3.5 mmol/L Normal 3.3-5.1 [facility] Comment on above: Performed By: #### L 500.4050, L100.0100 ####[facility] [address] [place], [address] Sodium [Moles/Vol] 137 mmol/L Normal 133-145 [facility] Comment on above: Performed By: #### L 500.4050, L100.0100 ####[facility] [address] [place], [address] T PROT 4.5 g/dL Low 5.9-8.4 [facility] Comment on above: Performed By: #### L 500.4050, L100.0100 ####[facility] [address] [place], [address] Urea nitrogen [Mass/Vol] 23 mg/dL High 4-19 [facility] Comment on above: Performed By: #### L 500.4050, L100.0100 ####[facility] [address] [place], [address] Consultation - Intensiviston 01-12-2025 Consultation - Worship Director Normal [facility] Eosinophil percentageOrdered By: Katlin Dwyer on 01-12-2025 Eosinophils/100 WBC (Bld) 0.4 % 0-5 [facility] Gram Stainon 01-12-2025 List Antibiotics [place] t 48 Hours? - Acceptable Specimen? Yes (<25 Epithelial cells per/lpf) Gram Stain Rare Gram positive cocci 1+ White Blood Cells Rare Epithelial cells Normal [facility] Comment on above: Performed By: #### M 100.2400, M100.2000 ####[facility] [address] [place], [address] Gram stainOrdered By: Andrew Ribera on 01-12-2025 Microscopic observation Gram stain Nom (Unsp spec) [facility] Immature granulocytes/100 WB C Auto (Bld)Ordered By: Katlin Dwyer on 01-12-2025 Immature granulocytes/100 WBC (Bld) 2.800 % High 0.0-0.9 [facility] Measurement, pHOrdered By: Piper Dwyer on 01-12-2025 pH (Unsp spec) 7.40 [pH] 7.35-7.45 [facility] Microbial respiratory cultur eOrdered By: Laura Ribera on 01-12-2025 Microorganism identified Cx Nom (Unsp spec) Escherichia coli Abnormal [facility] Microorganism identified Cx Nom (Unsp spec) Enterobacter cloacae complex Abnormal [facility] Monocyte percentageOrdered B y: Katlin Dwyer on 01-12-2025 Monocytes/100 WBC (Bld) 12.0 % High 0-10 [facility] No Panel InformationOrdered By: Katlin Dwyer on 01-12-2025 ART [facility] R Radial [facility] Not entered [facility] Cannula [facility] 38 [facility] Total carbon dioxide measure mentOrdered By: Katlin Dwyer on 01-12-2025 CO2 [Moles/Vol] 16 mmol/L [facility] AST(SGOT)on 01-11-2025 AST [Catalytic activity/Vol] 26 U/L Normal <=37 [facility] Comment on above: Performed By: #### L 501.4405, L503.7505, L501.1800, L501.4600, L001.0705, L501.4100, L501.4305 ####[facility] [address] [place], [address] Alanine Aminotransferas (SGP T)on 01-11-2025 ALT [Catalytic activity/Vol] 10 U/L Normal <=46 [facility] Comment on above: Performed By: #### L 501.4405, L503.7505, L501.1800, L501.4600, L001.0705, L501.4100, L501.4305 ####[facility] [address] [place], [address] Albumin, Serumon 01-11-2025 Albumin [Mass/Vol] 2.6 g/dL Low 3.4-4.8 [facility] Comment on above: Performed By: #### L 501.4405, L503.7505, L501.1800, L501.4600, L001.0705, L501.4100, L501.4305 ####[facility] [address] [place], [address] Alkaline Phosphataseon 01-11 ALK PHOS 46 U/L Normal 40-129 [facility] Comment on above: Performed By: #### L 501.4405, L503.7505, L501.1800, L501.4600, L001.0705, L501.4100, L501.4305 ####[facility] [address] [place], [address] Basic Metabolic Profile (BMP )on 01-11-2025 BUN/CRE 9.1 RATIO Low 10-20 [facility] Comment on above: Performed By: #### L 500.2500, L100.0500 ####[facility] [address] [place], [address] Calcium [Mass/Vol] 7.7 mg/dL Normal 7.6-11.0 [facility] Comment on above: Performed By: #### L 500.2500, L100.0500 ####[facility] [address] [place], [address] Chloride [Moles/Vol] 107 mmol/L Normal 98-108 [facility] Comment on above: Performed By: #### L 500.2500, L100.0500 ####[facility] [address] [place], [address] CO2 [Moles/Vol] 16.3 mmol/L Low 21.0-32.0 [facility] Comment on above: Performed By: #### L 500.2500, L100.0500 ####[facility] [address] [place], [address] Creatinine [Mass/Vol] 1.41 mg/dL High 0.70-1.20 [facility] Comment on above: Performed By: #### L 500.2500, L100.0500 ####[facility] [address] [place], [address] ECRCL 49.06 ml/min Low 50-250 [facility] Comment on above: Performed By: #### L 500.2500, L100.0500 ####[facility] [address] [place], [address] GAP 13 Normal 5-15 [facility] Comment on above: Performed By: #### L 500.2500, L100.0500 ####[facility] [address] [place], [address] GFR/1.73 sq M.predicted among non-blacks MDRD (S/P/Bld) [Vol rate/Area] 53 mL/min/{1.73_m2} Low >60 [facility] Comment on above: Result Comment: mL/m in/1.73m2 CKD-EPI Creatinine Equation (2020) Performed By: #### L 500.2500, L100.0500 ####[facility] [address] [place], [address] Glucose [Mass/Vol] 76 mg/dL Normal 70-99 [facility] Comment on above: Performed By: #### L 500.2500, L100.0500 ####[facility] [address] [place], [address] Potassium [Moles/Vol] 3.7 mmol/L Normal 3.3-5.1 [facility] Comment on above: Performed By: #### L 500.2500, L100.0500 ####[facility] [address] [place], [address] Sodium [Moles/Vol] 136 mmol/L Normal 133-145 [facility] Comment on above: Performed By: #### L 500.2500, L100.0500 ####[facility] [address] [place], [address] Urea nitrogen [Mass/Vol] 13 mg/dL Normal 4-19 [facility] Comment on above: Performed By: #### L 500.2500, L100.0500 ####[facility] [address] [place], [address] CBC W/Diff, Automatedon 03-0 -2024 Absolute Neut Normal 2.0-7.7 [facility] Comment on above: Result Comment: CANC ELLED PER SCHEDULE Performed By: #### L 500.4050, L100.0100 ####[facility] [address] [place], [address] HCT Normal 40-54 [facility] Comment on above: Result Comment: CANC ELLED PER SCHEDULE Performed By: #### L 500.4050, L100.0100 ####[facility] [address] [place], [address] HGB Normal 13.0-16.5 [facility] Comment on above: Result Comment: CANC ELLED PER SCHEDULE Performed By: #### L 500.4050, L100.0100 ####[facility] [address] [place], [address] MCH Normal 27.0-32.0 [facility] Comment on above: Result Comment: CANC ELLED PER SCHEDULE Performed By: #### L 500.4050, L100.0100 ####[facility] [address] [place], [address] MCHC Normal 32-36 [facility] Comment on above: Result Comment: CANC ELLED PER SCHEDULE Performed By: #### L 500.4050, L100.0100 ####[facility] [address] [place], [address] MCV Normal 80-94 [facility] Comment on above: Result Comment: CANC ELLED PER SCHEDULE Performed By: #### L 500.4050, L100.0100 ####[facility] [address] [place], [address] NEUT% Normal 47-70 [facility] Comment on above: Result Comment: CANC ELLED PER SCHEDULE Performed By: #### L 500.4050, L100.0100 ####[facility] [address] [place], [address] PLT Normal 150-450 [facility] Comment on above: Result Comment: CANC ELLED PER SCHEDULE Performed By: #### L 500.4050, L100.0100 ####[facility] [address] [place], [address] RBC Normal 4.6-6.2 [facility] Comment on above: Result Comment: CANC ELLED PER SCHEDULE Performed By: #### L 500.4050, L100.0100 ####[facility] [address] [place], [address] RDW CV Normal 11.6-14.6 [facility] Comment on above: Result Comment: CANC ELLED PER SCHEDULE Performed By: #### L 500.4050, L100.0100 ####[facility] [address] [place], [address] RDW SD Normal 35.1-43.9 [facility] Comment on above: Result Comment: CANC ELLED PER SCHEDULE Performed By: #### L 500.4050, L100.0100 ####[facility] [address] [place], [address] WBC Normal 4.4-11.0 [facility] Comment on above: Result Comment: CANC ELLED PER SCHEDULE Performed By: #### L 500.4050, L100.0100 ####[facility] [address] [place], [address] CBC-Complete Blood Cnt No Di ffon 01-11-2025 Erythrocyte distribution width (RBC) [Ratio] 19.2 % High 11.6-14.6 [facility] Comment on above: Performed By: #### L 500.2500, L100.0500 ####[facility] [address] [place], [address] Hematocrit (Bld) [Volume fraction] 35.2 % Low 40-54 [facility] Comment on above: Performed By: #### L 500.2500, L100.0500 ####[facility] [address] [place], [address] Hemoglobin (Bld) [Mass/Vol] 11.2 g/dL Low 13.0-16.5 [facility] Comment on above: Performed By: #### L 500.2500, L100.0500 ####[facility] [address] [place], [address] MCH (RBC) [Entitic mass] 23.2 pg Low 27.0-32.0 [facility] Comment on above: Performed By: #### L 500.2500, L100.0500 ####[facility] [address] [place], [address] MCHC (RBC) [Mass/Vol] 31.8 g/dL Low 32-36 [facility] Comment on above: Performed By: #### L 500.2500, L100.0500 ####[facility] [address] [place], [address] MCV (RBC) [Entitic vol] 72.9 fL Low 80-94 [facility] Comment on above: Performed By: #### L 500.2500, L100.0500 ####[facility] [address] [place], [address] Platelet mean volume (Bld) [Entitic vol] 9.4 fL Normal 6.2-12.0 [facility] Comment on above: Performed By: #### L 500.2500, L100.0500 ####[facility] [address] [place], [address] Platelets (Bld) [#/Vol] 182 10*3/uL Normal 150-450 [facility] Comment on above: Performed By: #### L 500.2500, L100.0500 ####[facility] [address] [place], [address] RBC (Bld) [#/Vol] 4.83 10*6/uL Normal 4.6-6.2 [facility] Comment on above: Performed By: #### L 500.2500, L100.0500 ####[facility] [address] [place], [address] RDW SD 50.2 fl High 35.1-43.9 [facility] Comment on above: Performed By: #### L 500.2500, L100.0500 ####[facility] [address] [place], [address] WBC (Bld) [#/Vol] 7.5 10*3/uL Normal 4.4-11.0 [facility] Comment on above: Performed By: #### L 500.2500, L100.0500 ####[facility] [address] [place], [address] CDIFF (PCR)on 01-11-2025 CDIFF Normal [facility] Comment on above: Performed By: #### M 100.6796 ####[facility] [address] [place], [address] Chest 1 View (Portable)on Chest 1 View (Portable) Normal [facility] Clostridium difficile detect ion by polymerase chain reactionOrdered By: Indio Simon on 01-11-2025 C. difficile DNA DAVID+probe Ql (Unsp spec) [facility] Comprehensive Metabolic Prof shobha 01-11-2025 ALB Normal 3.4-4.8 [facility] Comment on above: Result Comment: CANC ELLED PER SCHEDULE Performed By: #### L 500.4050, L100.0100 ####[facility] [address] [place], [address] ALK PHOS Normal 40-129 [facility] Comment on above: Result Comment: CANC ELLED PER SCHEDULE Performed By: #### L 500.4050, L100.0100 ####[facility] [address] [place], [address] ALT Normal <=46 [facility] Comment on above: Result Comment: CANC ELLED PER SCHEDULE Performed By: #### L 500.4050, L100.0100 ####[facility] [address] [place], [address] AST Normal <=37 [facility] Comment on above: Result Comment: CANC ELLED PER SCHEDULE Performed By: #### L 500.4050, L100.0100 ####[facility] [address] [place], [address] BUN Normal 4-19 [facility] Comment on above: Result Comment: CANC ELLED PER SCHEDULE Performed By: #### L 500.4050, L100.0100 ####[facility] [address] [place], [address] BUN/CRE Normal 10-20 [facility] Comment on above: Result Comment: CANC ELLED PER SCHEDULE Performed By: #### L 500.4050, L100.0100 ####[facility] [address] [place], [address] Calcium Normal 7.6-11.0 [facility] Comment on above: Result Comment: CANC ELLED PER SCHEDULE Performed By: #### L 500.4050, L100.0100 ####[facility] [address] [place], [address] CL Normal 98-108 [facility] Comment on above: Result Comment: CANC ELLED PER SCHEDULE Performed By: #### L 500.4050, L100.0100 ####[facility] [address] [place], [address] CO2 Normal 21.0-32.0 [facility] Comment on above: Result Comment: CANC ELLED PER SCHEDULE Performed By: #### L 500.4050, L100.0100 ####[facility] [address] [place], [address] CREAT,SERUM Normal 0.70-1.20 [facility] Comment on above: Result Comment: CANC ELLED PER SCHEDULE Performed By: #### L 500.4050, L100.0100 ####[facility] [address] [place], [address] eGFR Normal >60 [facility] Comment on above: Result Comment: CANC ELLED PER SCHEDULE Performed By: #### L 500.4050, L100.0100 ####[facility] [address] [place], [address] GAP Normal 5-15 [facility] Comment on above: Result Comment: CANC ELLED PER SCHEDULE Performed By: #### L 500.4050, L100.0100 ####[facility] [address] [place], [address] GLU Normal 70-99 [facility] Comment on above: Result Comment: CANC ELLED PER SCHEDULE Performed By: #### L 500.4050, L100.0100 ####[facility] [address] [place], [address] Potassium Normal 3.3-5.1 [facility] Comment on above: Result Comment: CANC ELLED PER SCHEDULE Performed By: #### L 500.4050, L100.0100 ####[facility] [address] [place], [address] T BILI Normal 0.00-1.30 [facility] Comment on above: Result Comment: CANC ELLED PER SCHEDULE Performed By: #### L 500.4050, L100.0100 ####[facility] [address] [place], [address] T PROT Normal 5.9-8.4 [facility] Comment on above: Result Comment: CANC ELLED PER SCHEDULE Performed By: #### L 500.4050, L100.0100 ####[facility] [address] [place], [address] Comprehensive Metabolic Profil Normal 133-145 [facility] Comment on above: Result Comment: CANC ELLED PER SCHEDULE Performed By: #### L 500.4050, L100.0100 ####[facility] [address] [place], [address] Echo Completeon 01-11-2025 Echo Complete Normal [facility] L503.7505on 01-11-2025 Natriuretic peptide B (Bld) [Mass/Vol] 2610 pg/mL High <=900 [facility] Comment on above: Result Comment: Hear t Failure Unlikely: < 300 pg/mLHeart Failure Likely< 50 Years: > 450 pg/mL50-75 Years: > 900 pg/mL>75 Years: > 1800 pg/mL Performed By: #### L 501.4405, L503.7505, L501.1800, L501.4600, L001.0705, L501.4100, L501.4305 ####[facility] [address] [place], [address] M100.678on 01-11-2025 M100.678 Normal [facility] Comment on above: Performed By: #### M 100.678 ####[facility] [address] [place], [address] No Panel InformationOrdered By: Katlin Dwyer on 01-11-2025 2610 pg/mL High <900 [facility] Protein, Totalon 01-11-2025 Albumin/Globulin [Mass ratio] 1.5 {ratio} Normal 0.9-2.4 [facility] Comment on above: Performed By: #### L 501.4405, L503.7505, L501.1800, L501.4600, L001.0705, L501.4100, L501.4305 ####[facility] [address] [place], [address] Globulin (S) [Mass/Vol] 1.7 g/dL Low 2.2-4.2 [facility] Comment on above: Performed By: #### L 501.4405, L503.7505, L501.1800, L501.4600, L001.0705, L501.4100, L501.4305 ####[facility] [address] [place], [address] T PROT 4.3 g/dL Low 5.9-8.4 [facility] Comment on above: Performed By: #### L 501.4405, L503.7505, L501.1800, L501.4600, L001.0705, L501.4100, L501.4305 ####[facility] [address] [place], [address] Total Bilirubinon 01-11-2025 Bilirubin [Mass/Vol] 0.45 mg/dL Normal 0.00-1.30 [facility] Comment on above: Performed By: #### L 501.4405, L503.7505, L501.1800, L501.4600, L001.0705, L501.4100, L501.4305 ####[facility] [address] [place], [address] 12 Lead EKGon 01-10-2025 12 Lead EKG Normal [facility] Bilirubin Test strip Ql (U)O rdered By: Chris Medina on 01-10-2025 Bilirubin Ql (U) Negative Negative [facility] Brain/Head without Contrasto n 01-10-2025 Brain/Head without Contrast Normal [facility] CBC W/Diff, Automatedon Absolute Lymph 0.83 X10 3/uL Normal 0.83-4.51 [facility] Comment on above: Performed By: #### L 100.0100, L500.4050 ####[facility] [address] [place], [address] Absolute Neut 2.7 X10 3/uL Normal 2.0-7.7 [facility] Comment on above: Performed By: #### L 100.0100, L500.4050 ####[facility] [address] [place], [address] Basophils/100 WBC (Bld) 1.0 % Normal 0-1 [facility] Comment on above: Performed By: #### L 100.0100, L500.4050 ####[facility] [address] [place], [address] Eosinophils/100 WBC (Bld) 2.8 % Normal 0-5 [facility] Comment on above: Performed By: #### L 100.0100, L500.4050 ####[facility] [address] [place], [address] Erythrocyte distribution width (RBC) [Ratio] 19.4 % High 11.6-14.6 [facility] Comment on above: Performed By: #### L 100.0100, L500.4050 ####[facility] [address] [place], [address] Hematocrit (Bld) [Volume fraction] 38.4 % Low 40-54 [facility] Comment on above: Performed By: #### L 100.0100, L500.4050 ####[facility] [address] [place], [address] Hemoglobin (Bld) [Mass/Vol] 12.3 g/dL Low 13.0-16.5 [facility] Comment on above: Performed By: #### L 100.0100, L500.4050 ####[facility] [address] [place], [address] IG% 3.200 High 0.0-0.9 [facility] Comment on above: Result Comment: IG% - Immature Granulocytes (promyelocytes, myelocytes andmetamyelocytes) > 1% indicates that a LEFT SHIFT is Present. Performed By: #### L 100.0100, L500.4050 ####[facility] [address] [place], [address] Lymphocytes/100 WBC (Bld) 16.8 % Low 19-41 [facility] Comment on above: Performed By: #### L 100.0100, L500.4050 ####[facility] [address] [place], [address] MCH (RBC) [Entitic mass] 22.9 pg Low 27.0-32.0 [facility] Comment on above: Performed By: #### L 100.0100, L500.4050 ####[facility] [address] [place], [address] MCHC (RBC) [Mass/Vol] 32.0 g/dL Normal 32-36 [facility] Comment on above: Performed By: #### L 100.0100, L500.4050 ####[facility] [address] [place], [address] MCV (RBC) [Entitic vol] 71.6 fL Low 80-94 [facility] Comment on above: Performed By: #### L 100.0100, L500.4050 ####[facility] [address] [place], [address] Monocytes/100 WBC (Bld) 21.9 % High 0-10 [facility] Comment on above: Performed By: #### L 100.0100, L500.4050 ####[facility] [address] [place], [address] Neutrophils/100 WBC (Bld) 54.3 % Normal 47-70 [facility] Comment on above: Performed By: #### L 100.0100, L500.4050 ####[facility] [address] [place], [address] Nucleated RBC (Bld) [#/Vol] 0 10*3/uL Normal 0-5 [facility] Comment on above: Performed By: #### L 100.0100, L500.4050 ####[facility] [address] [place], [address] Platelet mean volume (Bld) [Entitic vol] 8.8 fL Normal 6.2-12.0 [facility] Comment on above: Performed By: #### L 100.0100, L500.4050 ####[facility] [address] [place], [address] Platelets (Bld) [#/Vol] 201 10*3/uL Normal 150-450 [facility] Comment on above: Performed By: #### L 100.0100, L500.4050 ####[facility] [address] [place], [address] RBC (Bld) [#/Vol] 5.36 10*6/uL Normal 4.6-6.2 [facility] Comment on above: Performed By: #### L 100.0100, L500.4050 ####[facility] [address] [place], [address] RDW SD 48.8 fl High 35.1-43.9 [facility] Comment on above: Performed By: #### L 100.0100, L500.4050 ####[facility] [address] [place], [address] WBC (Bld) [#/Vol] 4.9 10*3/uL Normal 4.4-11.0 [facility] Comment on above: Performed By: #### L 100.0100, L500.4050 ####[facility] [address] [place], [address] CT Chest, Abd, Pel w/Contras ton 01-10-2025 CT Chest, Abd, Pel w/Contrast Normal [facility] Chest 1 View (Portable)on Chest 1 View (Portable) Normal [facility] Comprehensive Metabolic Prof ilon 01-10-2025 AST [Catalytic activity/Vol] 19 U/L Normal <=37 [facility] Comment on above: Performed By: #### L 100.0100, L500.4050 ####[facility] [address] [place], [address] Emergency Department Summary on 01-10-2025 Emergency Department Summary Normal [facility] H AND P Exam - Hospitaliston 01-10-2025 H&P Exam - Hospitalist Normal [facility] Influenza virus A and B and SARS-CoV-2 (COVID-19) and Respiratory syncytial virus RNAOrdered By: Chris Medina on 01-10-2025 SARS-CoV-2 (COVID-19) RNA DAVID+probe Ql (Unsp spec) Influenzae A Abnormal [facility] Ketones Test strip Ql (U)Ord ered By: Chris Medina on 01-10-2025 Ketones Ql (U) 15 mg/dl High Negative [facility] L509.7001on 01-10-2025 Procalcitonin 0.71 ng/mL High <=0.10 [facility] Comment on above: Result Comment: Inte rpretation:<0.10-0.25 ng/mL: Antibiotic therapy discouraged. Bacterialinfection unlikely.0.25-0.50 ng/mL: Antibiotic therapy encouraged. Bacterialinfection possible.>0.50 ng/mL: Antibiotic therapy strongly encouraged.Suggestive of presence of bacterial infection.PCT should always be interpreted in the clinical context ofthe patient. Therefore, clinicians should use the PCTresults in conjunction with other laboratory findings andclinical signs of the patient. Performed By: #### L 509.7001 ####[facility] [address] [facility] [place] [id number] Mucus LM Ql (Urine sed)Order ed By: Chris Medina on 01-10-2025 Mucus Ql (Urine sed) 0 SEEN /hpf [facility] Nitrite Test strip Ql (U)Ord ered By: Chris Medina on 01-10-2025 Nitrite Ql (U) Negative Negative [facility] No Panel InformationOrdered By: Chris Medina on 01-10-2025 0.71 ng/mL High <0.11 [facility] Protein Test strip Ql (U)Ord ered By: Chris Medina on 01-10-2025 Protein Ql (U) 15 mg/dl High Negative [facility] Squamous epithelial cells de tection in urine sediment by light microscopyOrdered By: Chris Medina on 01-10-2025 Epithelial cells.squamous LM Ql (Urine sed) 0 SEEN /hpf 0-5 [facility] Transitional cells detection in urine sediment by light microscopyOrdered By: Chris Medina on 01-10-2025 Transitional cells LM Ql (Urine sed) 0-5 SEEN /hpf 0-5 [facility] Urinalysis, Completeon 01-10 EPI,TRANSITION 0-5 SEEN Normal 0-5 [facility] Comment on above: Order Comment: SE CTOR TO SPECIFY Performed By: #### L 400.0001 ####[facility] [address] [facility] Hospital[facility]ella [place] [id number] RBC 0-5 SEEN Normal 0-5 [facility] Comment on above: Order Comment: SE CTOR TO SPECIFY Performed By: #### L 400.0001 ####[facility] [address] [facility] Hospital[facility]ella [place] [id number] WBC 10-25 SEEN Normal 0-5 [facility] Comment on above: Order Comment: COLLE CTOR TO SPECIFY Performed By: #### L 400.0001 ####[facility] [address] [place], [address] BACTERIA 1+ /hpf Normal None Seen [facility] Comment on above: Order Comment: SE CTOR TO SPECIFY Performed By: #### L 400.0001 ####[facility] [address] [place], [address] EPI,SQUAMOUS 0 SEEN Normal 0-5 [facility] Comment on above: Order Comment: SE CTOR TO SPECIFY Performed By: #### L 400.0001 ####[facility] [address] [place], [address] Mucus Ql (Urine sed) 0 SEEN Normal [facility] Comment on above: Order Comment: SE CTOR TO SPECIFY Performed By: #### L 400.0001 ####[facility] [address] [place], [address] Urine clarityOrdered By: Jessica Medina on 01-10-2025 Clarity (U) Sl. Cloudy Clear [facility] Urine color determinationOrd ered By: Chris Medina on 01-10-2025 Color (U) Yellow Yellow [facility] Urine glucose detectionOrder ed By: Chris Medina on 01-10-2025 Glucose Ql (U) Normal mg/dl Normal [facility] Urine leukocyte esterase det ection by dipstickOrdered By: Chris Medina on 01-10-2025 Leukocyte esterase Test strip Ql (U) 25 /ul High Negative [facility] Urine pHOrdered By: Rema Medina on 01-10-2025 pH (U) 6.0 [pH] 5.0 - 8.0 [facility] Urine sediment bacteria coun t by microscopy (number/high power field)Ordered By: Chris Medina on 01-10-2025 Bacteria LM.HPF (Urine sed) [#/Area] 1 /[HPF] None Seen [facility] Urine specific gravity measu rementOrdered By: Chris Medina on 01-10-2025 Specific gravity (U) [Rel density] 1.010 1.002-1.030 [facility] Urine urobilinogen measureme ntOrdered By: Chris Medina on 01-10-2025 Urobilinogen Ql (U) Normal mg/dl Normal [facility] White blood cell countOrdere d By: Chris Medina on 01-10-2025 White blood cell count 10-25 SEEN /hpf 0-5 [facility] Absolute lymphocyte countOrd ered By: Indio Simon on 01-07-2025 Lymphocytes Auto (Unsp spec) [#/Vol] 0.82 10*3/uL Low 0.83-4.51 [facility] Automated lymphocyte count a s percentage of total leukocytesOrdered By: Indio Simon on 01-07-2025 Lymphocytes/100 WBC Auto (Unsp spec) 17.0 % Low 19-41 [facility] BUN/creatinine ratioOrdered By: Indio Simon on 01-07-2025 Urea nitrogen/Creatinine [Mass ratio] 10.2 mg/mg 10-20 [facility] Basophil percentageOrdered B y: Indio Simon on 01-07-2025 Basophils/100 WBC (Bld) 1.0 % 0-1 [facility] Bilirubin, totalOrdered By: Indio Simon on 01-07-2025 Bilirubin [Mass/Vol] 0.43 mg/dL 0.00-1.30 [facility] CBC W/Diff, Automatedon - Absolute Lymph 0.82 X10 3/uL Low 0.83-4.51 [facility] Comment on above: Performed By: #### L 500.4050, L100.0100 ####[facility] [address] [place], [place], [address] Absolute Neut 2.7 X10 3/uL Normal 2.0-7.7 [facility] Comment on above: Performed By: #### L 500.4050, L100.0100 ####[facility] [address] [place], [address] Basophils/100 WBC (Bld) 1.0 % Normal 0-1 [facility] Comment on above: Performed By: #### L 500.4050, L100.0100 ####[facility] [address] [place], [address] Eosinophils/100 WBC (Bld) 8.3 % High 0-5 [facility] Comment on above: Performed By: #### L 500.4050, L100.0100 ####[facility] [address] [place], [address] Erythrocyte distribution width (RBC) [Ratio] 19.6 % High 11.6-14.6 [facility] Comment on above: Performed By: #### L 500.4050, L100.0100 ####[facility] [address] [place], [address] Hematocrit (Bld) [Volume fraction] 39.1 % Low 40-54 [facility] Comment on above: Performed By: #### L 500.4050, L100.0100 ####[facility] [address] [place], [address] Hemoglobin (Bld) [Mass/Vol] 12.6 g/dL Low 13.0-16.5 [facility] Comment on above: Performed By: #### L 500.4050, L100.0100 ####[facility] [address] [place], [address] IG% 1.500 High 0.0-0.9 [facility] Comment on above: Result Comment: IG% - Immature Granulocytes (promyelocytes, myelocytes andmetamyelocytes) > 1% indicates that a LEFT SHIFT is Present. Performed By: #### L 500.4050, L100.0100 ####[facility] [address] [place], [address] Lymphocytes/100 WBC (Bld) 17.0 % Low 19-41 [facility] Comment on above: Performed By: #### L 500.4050, L100.0100 ####[facility] [address] [place], [address] MCH (RBC) [Entitic mass] 23.2 pg Low 27.0-32.0 [facility] Comment on above: Performed By: #### L 500.4050, L100.0100 ####[facility] [address] [place], [address] MCHC (RBC) [Mass/Vol] 32.2 g/dL Normal 32-36 [facility] Comment on above: Performed By: #### L 500.4050, L100.0100 ####[facility] [address] [place], [address] MCV (RBC) [Entitic vol] 72.0 fL Low 80-94 [facility] Comment on above: Performed By: #### L 500.4050, L100.0100 ####[facility] [address] [place], [address] Monocytes/100 WBC (Bld) 16.0 % High 0-10 [facility] Comment on above: Performed By: #### L 500.4050, L100.0100 ####[facility] [address] [place], [address] Neutrophils/100 WBC (Bld) 56.2 % Normal 47-70 [facility] Comment on above: Performed By: #### L 500.4050, L100.0100 ####[facility] [address] [place], [address] Nucleated RBC (Bld) [#/Vol] 0 10*3/uL Normal 0-5 [facility] Comment on above: Performed By: #### L 500.4050, L100.0100 ####[facility] [address] [place], [address] Platelet mean volume (Bld) [Entitic vol] 9.0 fL Normal 6.2-12.0 [facility] Comment on above: Performed By: #### L 500.4050, L100.0100 ####[facility] [address] [place], [address] Platelets (Bld) [#/Vol] 262 10*3/uL Normal 150-450 [facility] Comment on above: Performed By: #### L 500.4050, L100.0100 ####[facility] [address] [place], [address] RBC (Bld) [#/Vol] 5.43 10*6/uL Normal 4.6-6.2 [facility] Comment on above: Performed By: #### L 500.4050, L100.0100 ####[facility] [address] [place], [address] RDW SD 49.5 fl High 35.1-43.9 [facility] Comment on above: Performed By: #### L 500.4050, L100.0100 ####[facility] [address] [place], [address] WBC (Bld) [#/Vol] 4.8 10*3/uL Normal 4.4-11.0 [facility] Comment on above: Performed By: #### L 500.4050, L100.0100 ####[facility] [address] [place], [address] Carbon dioxide measurementOr dered By: Indio Simon on 01-07-2025 CO2 [Moles/Vol] 18.2 mmol/L Low 22.0-29.0 [facility] Chloride measurementOrdered By: Indio Simon on 01-07-2025 Chloride [Moles/Vol] 98 mmol/L 96-108 [facility] Comprehensive Metabolic Prof ilon 01-07-2025 Albumin [Mass/Vol] 3.0 g/dL Low 3.4-4.8 [facility] Comment on above: Performed By: #### L 500.4050, L100.0100 ####[facility] [address] [place], [address] Albumin/Globulin [Mass ratio] 1.4 {ratio} Normal 0.9-2.4 [facility] Comment on above: Performed By: #### L 500.4050, L100.0100 ####[facility] [address] [place], [address] ALK PHOS 54 U/L Normal 40-129 [facility] Comment on above: Performed By: #### L 500.4050, L100.0100 ####[facility] [address] [place], [address] ALT [Catalytic activity/Vol] 10 U/L Normal <=46 [facility] Comment on above: Performed By: #### L 500.4050, L100.0100 ####[facility] [address] [place], [address] Anion gap [Moles/Vol] 15 mmol/L Normal 5-15 [facility] Comment on above: Performed By: #### L 500.4050, L100.0100 ####[facility] [address] [place], [address] AST [Catalytic activity/Vol] 18 U/L Normal <=37 [facility] Comment on above: Performed By: #### L 500.4050, L100.0100 ####[facility] [address] [place], [address] Bilirubin [Mass/Vol] 0.43 mg/dL Normal 0.00-1.30 [facility] Comment on above: Performed By: #### L 500.4050, L100.0100 ####[facility] [address] [place], [address] BUN/CRE 10.2 RATIO Normal 10-20 [facility] Comment on above: Performed By: #### L 500.4050, L100.0100 ####[facility] [address] [place], [address] Calcium [Mass/Vol] 8.9 mg/dL Normal 7.6-11.0 [facility] Comment on above: Performed By: #### L 500.4050, L100.0100 ####[facility] [address] [place], [address] Chloride [Moles/Vol] 98 mmol/L Normal 96-108 [facility] [place] Comment on above: Performed By: #### L 500.4050, L100.0100 ####[facility] [address] [place], [address] CO2 [Moles/Vol] 18.2 mmol/L Low 22.0-29.0 [facility] Comment on above: Performed By: #### L 500.4050, L100.0100 ####[facility] [address] [place], [address] Creatinine [Mass/Vol] 1.14 mg/dL Normal 0.70-1.20 [facility] Comment on above: Performed By: #### L 500.4050, L100.0100 ####[facility] [address] [place], [address] ECRCL 60.21 ml/min Normal [facility] Comment on above: Performed By: #### L 500.4050, L100.0100 ####[facility] [address] [place], [address] GFR/1.73 sq M.predicted among non-blacks MDRD (S/P/Bld) [Vol rate/Area] 69 mL/min/{1.73_m2} Normal >60 [facility] Comment on above: Result Comment: mL/m in/1.73m2 CKD-EPI Creatinine Equation (2020) Performed By: #### L 500.4050, L100.0100 ####[facility] [address] [place], [address] Globulin (S) [Mass/Vol] 2.2 g/dL Normal 2.2-4.2 [facility] Comment on above: Performed By: #### L 500.4050, L100.0100 ####[facility] [address] [place], [address] Glucose [Mass/Vol] 96 mg/dL Normal 70-99 [facility] Comment on above: Performed By: #### L 500.4050, L100.0100 ####[facility] [address] [place], [address] Potassium [Moles/Vol] 3.6 mmol/L Normal 3.3-5.1 [facility] Comment on above: Performed By: #### L 500.4050, L100.0100 ####[facility] [address] [place], [address] Sodium [Moles/Vol] 131 mmol/L Low 133-145 [facility] Comment on above: Performed By: #### L 500.4050, L100.0100 ####[facility] [address] [place], [address] T PROT 5.3 g/dL Low 5.9-8.4 [facility] Comment on above: Performed By: #### L 500.4050, L100.0100 ####[facility] [address] [place], [address] Urea nitrogen [Mass/Vol] 12 mg/dL Normal 4-19 [facility] Comment on above: Performed By: #### L 500.4050, L100.0100 ####[facility] [address] [place], [place], [address] ENTERIC PATHOGEN PANEL STOOL on 01-07-2025 EP PANEL Normal [facility] Comment on above: Performed By: #### M 100.0605, M100.637 ####[facility] [address] [place], [place], [id number] Emergency Department Summary on 01-07-2025 Emergency Department Summary Normal [facility] Eosinophil percentageOrdered By: Indio Simon on 01-07-2025 Eosinophils/100 WBC (Bld) 8.3 % High 0-5 [facility] Erythrocyte distribution wid th ratioOrdered By: Indio Simon on 01-07-2025 Erythrocyte distribution width (RBC) [Ratio] 19.6 % High 11.6-14.6 [facility] Erythrocyte distribution wid th standard deviationOrdered By: Indio Simon on 01-07-2025 Erythrocyte distribution width (RBC) [Ratio] 49.5 fl High 35.1-43.9 [facility] Glomerular filtration rate ( GFR) estimation/1.73 sq m using serum, plasma, or whole bOrdered By: Indio Simon on 01-07-2025 GFR/1.73 sq M.predicted among non-blacks MDRD (S/P/Bld) [Vol rate/Area] 69 mL/min/{1.73_m2} >60 [facility] Hematocrit Auto (Bld) [Volum e fraction]Ordered By: Indio Simon on 01-07-2025 Hematocrit (Bld) [Volume fraction] 39.1 % Low 40-54 [facility] Hemoglobin measurementOrdere d By: Indio Simon on 01-07-2025 Hemoglobin (Bld) [Mass/Vol] 12.6 g/dL Low 13.0-16.5 [facility] Immature granulocytes/100 WB C Auto (Bld)Ordered By: Indio Simon on 01-07-2025 Immature granulocytes/100 WBC (Bld) 1.500 % High 0.0-0.9 [facility] MCV (mean corpuscular volume ) determinationOrdered By: Indio Simon on 01-07-2025 MCV (RBC) [Entitic vol] 72.0 fL Low 80-94 [facility] Mean corpuscular hemoglobin (MCH) determinationOrdered By: Indio Simon on 01-07-2025 MCH (RBC) [Entitic mass] 23.2 pg Low 27.0-32.0 [facility] Monocyte percentageOrdered B y: Indio Simon on 01-07-2025 Monocytes/100 WBC (Bld) 16.0 % High 0-10 [facility] Neutrophil percentageOrdered By: Indio Simon on 01-07-2025 Neutrophils/100 WBC (Bld) 56.2 % 47-70 [facility] No Panel InformationOrdered By: Indio Simon on 01-07-2025 18 U/L <38 [facility] Platelet countOrdered By: Destinee Simon on 01-07-2025 Platelets (Bld) [#/Vol] 262 10*3/uL 150-450 [facility] RBC Auto (Bld) [#/Vol]Ordere d By: Indio Simon on 01-07-2025 RBC (Bld) [#/Vol] 5.43 10*6/uL 4.6-6.2 [facility] Serum creatinine measurement (mass/volume)Ordered By: Indio Simon on 01-07-2025 Creatinine [Mass/Vol] 1.14 mg/dL 0.70-1.20 [facility] Serum globulin measurementOr dered By: Indio Simon on 01-07-2025 Globulin (S) [Mass/Vol] 2.2 g/dL 2.2-4.2 [facility] Serum glucose measurement (m ass/volume)Ordered By: Indio Simon on 01-07-2025 Glucose [Mass/Vol] 96 mg/dL 70-99 [facility] Serum or plasma alanine kong otransferase (ALT) measurementOrdered By: Indio Simon on 01-07-2025 ALT [Catalytic activity/Vol] 10 U/L <47 [facility] Serum or plasma albumin deangelo urement (mass/volume)Ordered By: Indio Simon on 01-07-2025 Albumin [Mass/Vol] 3.0 g/dL Low 3.4-4.8 [facility] Serum or plasma albumin/glob ulin mass ratioOrdered By: Indio Simon on 01-07-2025 Albumin/Globulin [Mass ratio] 1.4 {ratio} 0.9-2.4 [facility] Serum or plasma alkaline alie sphatase measurementOrdered By: Indio Simon on 01-07-2025 ALP [Catalytic activity/Vol] 54 U/L 40-129 [facility] Serum or plasma anion gap de termination (moles/volume)Ordered By: Indio Simon on 01-07-2025 Anion gap [Moles/Vol] 15 mmol/L 5-15 [facility] Serum or plasma calcium deangelo urement (mass/volume)Ordered By: Indio Simon on 01-07-2025 Calcium [Mass/Vol] 8.9 mg/dL 7.6-11.0 [facility] Serum or plasma potassium me asurementOrdered By: Indio Simon on 01-07-2025 Potassium [Moles/Vol] 3.6 mmol/L 3.3-5.1 [facility] Serum or plasma sodium measu rement (moles/volume)Ordered By: Indio Simon on 01-07-2025 Sodium [Moles/Vol] 131 mmol/L Low 133-145 [facility] Serum or plasma urea nitroge n measurement (mass/volume)Ordered By: Indio Simon on 01-07-2025 Urea nitrogen [Mass/Vol] 12 mg/dL 4-19 [facility] Stool Lactoferrin/WBCon WBCST Normal Reference Ran ge = Negative Fecal WBC Lactoferrin A Positive: Fecal WBC Lactoferrin present A Normal [facility] Comment on above: Performed By: #### M 100.0605, M100.637 ####[facility] [address] [place], [address] Stool lactoferrin detection by immunoassayOrdered By: Indio Simon on 01-07-2025 Lactoferrin IA Ql (Stl) [facility] Total proteinOrdered By: Randy Simon on 01-07-2025 Protein [Mass/Vol] 5.3 g/dL Low 5.9-8.4 [facility] White blood cell (WBC) count Ordered By: Indio Simon on 01-07-2025 WBC (Bld) [#/Vol] 4.8 10*3/uL 4.4-11.0 [facility] 36on 01-05-2025 36 Dick has seen th gloria records [facility] 36on 01-02-2025 36 Records requested [place] [address] Talked to patient an d he verbalized understanding and will call those providers and see what they recommend. Normal [facility] 36 Noted. [facility] 36on 12-30-2024 36 S: Luli, from [employer] , spoke with [facility] nurse regarding stat lab results from [facility] B: Onset of symptoms/concern RAMON 12/30/24 A: [facility] calling lab results from today, no critical values noted and is faxing results to office as well. Verified fax number. R: Secure chat message to Dr. Jennings, who advises: reviewed lab all ok, can you call the pt and reassure him there is no sign of a bacterial infection of his abdomen, bleeding liver or renal concerns like dehydration or liver inflammation. for now, continue liquids and progress diet as tolerated. await the results of his upcoming Cts with his oncologist. no med changes, take Zofran as needed for nausea Call to patient with information as above and states understanding. No further need at this time. [place] [address] S: Luli, from [employer] , spoke with [facility] nurse regarding stat lab results from [facility] B: Onset of symptoms/concern RAMON 12/30/24 A: [facility] calling lab results from today, no critical values noted and is faxing results to office as well. Verified fax number. R: Message to provider for review. No further needs at this time. 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 Sometimes we stopped these meds and lieu of his risk for possible GI bleeding. [place] [address] Staff to call this patient's honey blender Dr. Chambers in [place] to get a copy of the most recent colonoscopy and office notes about colonic AVM, lower GI bleeding, and possible treatments in the future. Also copy of the results of his recent camera endoscopy. That is not in this record. Normal [facility] 37on 12-30-2024 37 Increase Prilosec to 40 mg daily for 1 week and then down to 20 mg a day. 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 Follow-up with oncology for CAT scan imaging as directed. Normal [facility] Office Visiton 12-30-2024 Follow-up visit [id number] Mirna Arshad 1955 M Date Provider Department Center 12/30/2024 [id number] JENNINGS [facility] Family History Problem Relation Age of Onset Coronary artery disease Mother Comments: CABG Coronary artery disease Sister Comments: CABG Stroke Mother Comments: age 77 Lung cancer Mother No Known Problems Sister No Known Problems Brother No Known Problems Sister No Known Problems Sister Diabetes Sister Coronary artery disease Father Comments: age 50 [place] - smoker Coronary artery disease Brother Comments: age 47 [place] Family Status - Relation Status Age at Mother 77 Sister Alive Sister Alive Brother Alive Sister Alive Sister Alive Father 50 Brother 47 Level of Service:[address]238 [place] OFFICE/OUTPATIENT ESTABLISHED MOD MDM 30 MIN Reason for Visit and Comments: Hospital Follow-up [832] - Fever [47] Respiratory Distress [172320] Vomiting [120] - Can't eat Normal [facility] Progress Noteon 12-30-2024 Progress Note [facility] - [address] [facility] [id number] Visit type: Established Patient Reason for Visit: Hospital Follow-up ( ), Fever, Respiratory Distress, and Vomiting (Can't eat ) Assessment / Plan: Kenn was seen today for hospital follow-up, fever, respiratory distress and vomiting. Diagnoses and all orders for this visit: Nausea (Primary) Comments: Recurrent, Zofran, check lab, await CT abdomen Orders: - CBC auto differential; Future - Comprehensive metabolic panel; Future - Lipase; Future - CBC auto differential - Comprehensive metabolic panel - Lipase Chronic bronchitis, unspecified chronic bronchitis type (HCC) Comments: Resolved URI. Patient should follow-up with pulmonary as well-recommend perhaps recheck PFTs and LABA therapy Hypochromic microcytic anemia Comments: Very stable, follow-up with GI on intervention on GI AVM History of bleeding peptic ulcer Comments: For now increase Prilosec to 40 mg daily for 1 week and then 10 to 20 mg again. 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 Other orders - ondansetron (Zofran) 8 MG tablet; Take 1 tablet (8 mg) by mouth every 8 hours as needed for nausea or vomiting for up to 7 days. 30 Minutes spent on reviewing pertinent medical, surgical, family and social history, patient interview, physical exam, discussion of diagnosis, treatment and work-up options. Reviewed recent CT of the abdomen, chest, and previous GI reports. Subjective: Patient ID: Kenn Arshad is a 69 y.o. male. HPI patient presents to the office after being hospitalized for an hypoxic event possibly due to a nondescript viral illness. Was sent home on prednisone 20 twice daily and his shortness of breath and cough is improving. Has minimal clear drainage. Biggest concern today is ongoing generalized abdominal distress. Some nausea and vomiting from 14 December but that resolved. However had some emesis in the last 24 hours. Also had about 5 days of constipation. Had a normal bowel movement yesterday. Generalized upper quadrant abdominal achiness. Would not call a pain. He is on Prilosec daily. Was on prednisone without distress. No early satiety melena or blood. No chronic constipation or diarrhea. Of note apparently he recently completed a camera endoscopy which showed 2 small blood vessels in his either small or large colon. He has been referred from Dr. Chambers in [place] to [facility] for evaluation. Apparently he had procedure for a similar blood vessel issue done by Dr. Chambers about 2 years ago. Do not have those records. Nonetheless there is no melena or blood. His CBC including hemoglobin has been stable Review of Systems no fevers or sweats or chills. Phlegm is clear. No chest pain or pleurisy. Denies right upper quadrant abdominal pain. History of ventral hernia but is passing flatus. Just is not hungry. Has lost some weight. Denies dysuria hematuria. No recent mental status change. He does states his urine is darker but not brown. Urinating a few times a day. No Known Allergies Current Outpatient Medications on File Prior to Visit Medication Sig Dispense Refill amLODIPine (Norvasc) 10 MG tablet Take 1 tablet (10 mg) by mouth daily for 180 doses. 90 tablet 1 apixaban (Eliquis) 2.5 MG tablet One q day 90 tablet 0 carvedilol (Coreg) 25 MG tablet Take 1 tablet (25 mg) by mouth 2 times daily (with meals). 180 tablet 1 hydrALAZINE (Apresoline) 50 MG tablet Take 1 tablet (50 mg) by mouth 2 times daily. 180 tablet 1 ipratropium-albuterol (Duo-Neb) 0.5-2.5 mg/3 mL nebulizer solution Inhale 3 mL. omeprazole (PriLOSEC) [address] capsule Take 1 capsule (20 mg) by mouth Daily as needed (reflux). 90 capsule 1 pembrolizumab (Keytruda) 100 MG/4ML chemo injection Infuse 200 mg into a venous catheter. prednisoLONE acetate (Pred-Forte) 1 % ophthalmic suspension Administer 1 drop into the left eye 2 times daily. Refresh Optive Advanced PF 0.5-1-0.5 % solution Administer 1 drop into both eyes 2 times daily. rosuvastatin (Crestor) 40 MG tablet TAKE 1 TABLET BY MOUTH EVERY DAY 90 tablet 1 Lancets (OneTouch Delica Plus [id number]) misc nitroglycerin (Nitrostat) 0.[address] 1 tablet (0.4 mg) under the tongue every 5 minutes as needed for chest pain. 90 tablet 0 OneTouch Ultra test strip No current facility-administered medications on file prior to visit. Patient Active Problem List Diagnosis Right carotid bruit Right inguinal hernia Adenocarcinoma of left lung (HCC) Adenocarcinoma of right lung (HCC) Simin (more content not included)... [facility] 36on 12-28-2024 36 S: Patient's nanci collins with [facility] nurse regarding vomiting, no appetite, fever B: Onset of symptoms/concern 1 month ago A: Has been vomiting, still running fever, decreased appetite, was admitted to [facility] on 12/14 out 2/7, still not doing well. Treated for COPD exacerbation, temps will run between 99-101 currently, vomits about twice per day, is able to keep fluids in but no appetite. Just had cancer treatment on 12/21, has been sick frequently so has missed treatments. states always lightheaded due to cancer. Denies: abdominal pain, blood in vomit, difficulty urinating or having BM's, dizziness, R: Patient scheduled hospital follow up appointment with Dr. Jennings 12/30/24 at 10am. Patient's understands care advice. No further needs at this time. Patient instructed to call back with new or worsening symptoms. Reason for Disposition Fever > 100 F (37.8 C) and has a weak immune system (e.g., HIV positive, cancer chemo, organ transplant, splenectomy, chronic steroids) Protocols used: [id number] Normal [facility] Basic Metabolic Profile (BMP )on 12-23-2024 BUN Normal 7-18 [facility] Comment on above: Result Comment: Canc elled via OM: Order cancelled - Patient discharged Performed By: #### L 100.0100, L500.2500 ####[facility] [address] [place], [address] BUN/CRE Normal 10-20 [facility] Comment on above: Result Comment: Canc elled via OM: Order cancelled - Patient discharged Performed By: #### L 100.0100, L500.2500 ####[facility] [address] [place], [address] CA,Total Normal 8.5-10.1 [facility] Comment on above: Result Comment: Canc elled via OM: Order cancelled - Patient discharged Performed By: #### L 100.0100, L500.2500 ####[facility] [address] [place], [address] CL Normal 98-107 [facility] Comment on above: Result Comment: Canc elled via OM: Order cancelled - Patient discharged Performed By: #### L 100.0100, L500.2500 ####[facility] [address] [place], [address] CO2 Normal 21.0-32.0 [facility] Comment on above: Result Comment: Canc elled via OM: Order cancelled - Patient discharged Performed By: #### L 100.0100, L500.2500 ####[facility] [address] [place], [address] CREAT,SERUM Normal 0.70-1.30 [facility] Comment on above: Result Comment: Canc elled via OM: Order cancelled - Patient discharged Performed By: #### L 100.0100, L500.2500 ####[facility] [address] [place], [address] EST GFR Normal >60 [facility] Comment on above: Result Comment: Canc elled via OM: Order cancelled - Patient discharged Performed By: #### L 100.0100, L500.2500 ####[facility] [address] [place], [address] EST GFR - AA Normal >60 [facility] Comment on above: Result Comment: Canc elled via OM: Order cancelled - Patient discharged Performed By: #### L 100.0100, L500.2500 ####[facility] [address] [place], [address] GAP Normal 5-15 [facility] Comment on above: Result Comment: Canc elled via OM: Order cancelled - Patient discharged Performed By: #### L 100.0100, L500.2500 ####[facility] [address] [place], [address] GLU Normal 74-106 [facility] Comment on above: Result Comment: Canc elled via OM: Order cancelled - Patient discharged Performed By: #### L 100.0100, L500.2500 ####[facility] [address] [place], [address] Potassium Normal 3.5-5.1 [facility] Comment on above: Result Comment: Canc elled via OM: Order cancelled - Patient discharged Performed By: #### L 100.0100, L500.2500 ####[facility] [address] [place], [address] Basic Metabolic Profile (BMP) Normal 136-145 [facility] Comment on above: Result Comment: Canc elled via OM: Order cancelled - Patient discharged Performed By: #### L 100.0100, L500.2500 ####[facility] [address] [place], [address] CBC W/Diff, Automatedon 12-10 Absolute Neut Normal 2.0-7.7 [facility] Comment on above: Result Comment: Canc elled via OM: Order cancelled - Patient discharged Performed By: #### L 100.0100, L500.2500 ####[facility] [address] [place], [address] HCT Normal 40-54 [facility] Comment on above: Result Comment: Canc elled via OM: Order cancelled - Patient discharged Performed By: #### L 100.0100, L500.2500 ####[facility] [address] [place], [address] HGB Normal 13.0-16.5 [facility] Comment on above: Result Comment: Canc elled via OM: Order cancelled - Patient discharged Performed By: #### L 100.0100, L500.2500 ####[facility] [address] [place], [address] MCH Normal 27.0-32.0 [facility] Comment on above: Result Comment: Canc elled via OM: Order cancelled - Patient discharged Performed By: #### L 100.0100, L500.2500 ####[facility] [address] [place], [address] MCHC Normal 32-36 [facility] Comment on above: Result Comment: Canc elled via OM: Order cancelled - Patient discharged Performed By: #### L 100.0100, L500.2500 ####[facility] [address] [place], [address] MCV Normal 80-94 [facility] Comment on above: Result Comment: Canc elled via OM: Order cancelled - Patient discharged Performed By: #### L 100.0100, L500.2500 ####[facility] [address] [place], [address] NEUT% Normal 47-70 [facility] Comment on above: Result Comment: Canc elled via OM: Order cancelled - Patient discharged Performed By: #### L 100.0100, L500.2500 ####[facility] [address] [place], [address] PLT Normal 150-450 [facility] Comment on above: Result Comment: Canc elled via OM: Order cancelled - Patient discharged Performed By: #### L 100.0100, L500.2500 ####[facility] [address] [place], [address] RBC Normal 4.6-6.2 [facility] Comment on above: Result Comment: Canc elled via OM: Order cancelled - Patient discharged Performed By: #### L 100.0100, L500.2500 ####[facility] [address] [place], [address] RDW CV Normal 11.6-14.6 [facility] Comment on above: Result Comment: Canc elled via OM: Order cancelled - Patient discharged Performed By: #### L 100.0100, L500.2500 ####[facility] [address] [place], [address] RDW SD Normal 35.1-43.9 [facility] Comment on above: Result Comment: Canc elled via OM: Order cancelled - Patient discharged Performed By: #### L 100.0100, L500.2500 ####[facility] [address] [place], [address] WBC Normal 4.4-11.0 [facility] Comment on above: Result Comment: Canc elled via OM: Order cancelled - Patient discharged Performed By: #### L 100.0100, L500.2500 ####[facility] [address] [place], [address] Basic Metabolic Profile (BMP )on 12-22-2024 BUN Normal 7-18 [facility] Comment on above: Result Comment: Canc elled via OM: Order cancelled - Patient discharged Performed By: #### L 100.0100, L500.2500 ####[facility] [address] [place], [address] BUN/CRE Normal 10-20 [facility] Comment on above: Result Comment: Canc elled via OM: Order cancelled - Patient discharged Performed By: #### L 100.0100, L500.2500 ####[facility] [address] [place], [address] CA,Total Normal 8.5-10.1 [facility] Comment on above: Result Comment: Canc elled via OM: Order cancelled - Patient discharged Performed By: #### L 100.0100, L500.2500 ####[facility] [address] [place], [address] CL Normal 98-107 [facility] Comment on above: Result Comment: Canc elled via OM: Order cancelled - Patient discharged Performed By: #### L 100.0100, L500.2500 ####[facility] [address] [place], [address] CO2 Normal 21.0-32.0 [facility] Comment on above: Result Comment: Canc elled via OM: Order cancelled - Patient discharged Performed By: #### L 100.0100, L500.2500 ####[facility] [address] [place], [address] CREAT,SERUM Normal 0.70-1.30 [facility] Comment on above: Result Comment: Canc elled via OM: Order cancelled - Patient discharged Performed By: #### L 100.0100, L500.2500 ####[facility] [address] [place], [address] EST GFR Normal >60 [facility] Comment on above: Result Comment: Canc elled via OM: Order cancelled - Patient discharged Performed By: #### L 100.0100, L500.2500 ####[facility] [address] [place], [address] EST GFR - AA Normal >60 [facility] Comment on above: Result Comment: Canc elled via OM: Order cancelled - Patient discharged Performed By: #### L 100.0100, L500.2500 ####[facility] [address] [place], [address] GAP Normal 5-15 [facility] Comment on above: Result Comment: Canc elled via OM: Order cancelled - Patient discharged Performed By: #### L 100.0100, L500.2500 ####[facility] [address] [place], [address] GLU Normal 74-106 [facility] Comment on above: Result Comment: Canc elled via OM: Order cancelled - Patient discharged Performed By: #### L 100.0100, L500.2500 ####[facility] [address] [place], [address] Potassium Normal 3.5-5.1 [facility] Comment on above: Result Comment: Canc elled via OM: Order cancelled - Patient discharged Performed By: #### L 100.0100, L500.2500 ####[facility] [address] [place], [address] Basic Metabolic Profile (BMP) Normal 136-145 [facility] Comment on above: Result Comment: Canc elled via OM: Order cancelled - Patient discharged Performed By: #### L 100.0100, L500.2500 ####[facility] [address] [place], [address] CBC W/Diff, Automatedon 12-10 PATH REV Reviewed Normal [facility] Comment on above: Order Comment: UTO F ROM PORT Result Comment: Micr ocytic anemia.Clinical correlation necessary.Duglas Martínez M.D. 12/22/24 AMENDED REPORT 12/22/24 1502 PATH REV previously reported as: March Performed By: #### L 501.2300, L100.0100, L500.4050 ####[facility] [address] [place], [address] Absolute Neut Normal 2.0-7.7 [facility] Comment on above: Result Comment: Canc elled via OM: Order cancelled - Patient discharged Performed By: #### L 100.0100, L500.2500 ####[facility] [address] [place], [address] HCT Normal 40-54 [facility] Comment on above: Result Comment: Canc elled via OM: Order cancelled - Patient discharged Performed By: #### L 100.0100, L500.2500 ####[facility] [address] [place], [address] HGB Normal 13.0-16.5 [facility] Comment on above: Result Comment: Canc elled via OM: Order cancelled - Patient discharged Performed By: #### L 100.0100, L500.2500 ####[facility] [address] [place], [address] MCH Normal 27.0-32.0 [facility] Comment on above: Result Comment: Canc elled via OM: Order cancelled - Patient discharged Performed By: #### L 100.0100, L500.2500 ####[facility] [address] [place], [address] MCHC Normal 32-36 [facility] Comment on above: Result Comment: Canc elled via OM: Order cancelled - Patient discharged Performed By: #### L 100.0100, L500.2500 ####[facility] [address] [place], [address] MCV Normal 80-94 [facility] Comment on above: Result Comment: Canc elled via OM: Order cancelled - Patient discharged Performed By: #### L 100.0100, L500.2500 ####[facility] [address] [place], [address] NEUT% Normal 47-70 [facility] Comment on above: Result Comment: Canc elled via OM: Order cancelled - Patient discharged Performed By: #### L 100.0100, L500.2500 ####[facility] [address] [place], [address] PLT Normal 150-450 [facility] Comment on above: Result Comment: Canc elled via OM: Order cancelled - Patient discharged Performed By: #### L 100.0100, L500.2500 ####[facility] [address] [place], [address] RBC Normal 4.6-6.2 [facility] Comment on above: Result Comment: Canc elled via OM: Order cancelled - Patient discharged Performed By: #### L 100.0100, L500.2500 ####[facility] [address] [place], [address] RDW CV Normal 11.6-14.6 [facility] Comment on above: Result Comment: Canc elled via OM: Order cancelled - Patient discharged Performed By: #### L 100.0100, L500.2500 ####[facility] [address] [place], [address] RDW SD Normal 35.1-43.9 [facility] Comment on above: Result Comment: Canc elled via OM: Order cancelled - Patient discharged Performed By: #### L 100.0100, L500.2500 ####[facility] [address] [place], [address] WBC Normal 4.4-11.0 [facility] Comment on above: Result Comment: Canc elled via OM: Order cancelled - Patient discharged Performed By: #### L 100.0100, L500.2500 ####[facility] [address] [place], [address] Basic Metabolic Profile (BMP )on 12-21-2024 BUN Normal 7-18 [facility] Comment on above: Result Comment: Canc elled via OM: Order cancelled - Patient discharged Performed By: #### L 100.0100, L500.2500 ####[facility] [address] [place], [address] BUN/CRE Normal 10-20 [facility] Comment on above: Result Comment: Canc elled via OM: Order cancelled - Patient discharged Performed By: #### L 100.0100, L500.2500 ####[facility] [address] [place], [address] CA,Total Normal 8.5-10.1 [facility] Comment on above: Result Comment: Canc elled via OM: Order cancelled - Patient discharged Performed By: #### L 100.0100, L500.2500 ####[facility] [address] [place], [address] CL Normal 98-107 [facility] Comment on above: Result Comment: Canc elled via OM: Order cancelled - Patient discharged Performed By: #### L 100.0100, L500.2500 ####[facility] [address] [place], [address] CO2 Normal 21.0-32.0 [facility] Comment on above: Result Comment: Canc elled via OM: Order cancelled - Patient discharged Performed By: #### L 100.0100, L500.2500 ####[facility] [address] [place], [address] CREAT,SERUM Normal 0.70-1.30 [facility] Comment on above: Result Comment: Canc elled via OM: Order cancelled - Patient discharged Performed By: #### L 100.0100, L500.2500 ####[facility] [address] [place], [address] EST GFR Normal >60 [facility] Comment on above: Result Comment: Canc elled via OM: Order cancelled - Patient discharged Performed By: #### L 100.0100, L500.2500 ####[facility] [address] [place], [address] EST GFR - AA Normal >60 [facility] Comment on above: Result Comment: Canc elled via OM: Order cancelled - Patient discharged Performed By: #### L 100.0100, L500.2500 ####[facility] [address] [place], [address] GAP Normal 5-15 [facility] Comment on above: Result Comment: Canc elled via OM: Order cancelled - Patient discharged Performed By: #### L 100.0100, L500.2500 ####[facility] [address] [place], [address] GLU Normal 74-106 [facility] Comment on above: Result Comment: Canc elled via OM: Order cancelled - Patient discharged Performed By: #### L 100.0100, L500.2500 ####[facility] [address] [place], [address] Potassium Normal 3.5-5.1 [facility] Comment on above: Result Comment: Canc elled via OM: Order cancelled - Patient discharged Performed By: #### L 100.0100, L500.2500 ####[facility] [address] [place], [address] Basic Metabolic Profile (BMP) Normal 136-145 [facility] Comment on above: Result Comment: Canc elled via OM: Order cancelled - Patient discharged Performed By: #### L 100.0100, L500.2500 ####[facility] [address] [place], [address] Blood band neutrophil count as percentage of total leukocytesOrdered By: Angela Rodriguez on 12-21-2024 Band form neutrophils/100 WBC (Bld) 1 % 0-5 [facility] Blood eosinophils/100 leukoc ytesOrdered By: Angela Rodriguez on 12-21-2024 Eosinophils/100 WBC (Bld) 3 % 0-5 [facility] Blood lymphocytes/100 leukoc ytesOrdered By: Angela Sorianous on 12-21-2024 Lymphocytes/100 WBC (Bld) 17 % Low 19-41 [facility] Blood metamyelocytes/100 meera kocytesOrdered By: Angela Sorianous on 12-21-2024 Metamyelocytes/100 WBC (Bld) 1 % 0-1 [facility] Blood monocytes/100 leukocyt esOrdered By: Angela Sorianous on 12-21-2024 Monocytes/100 WBC (Bld) 5 % 0-10 [facility] Blood promyelocytes/100 leuk ocytesOrdered By: Angela Sorianous on 12-21-2024 Promyelocytes/100 WBC (Bld) 2 % High 0-0 [facility] Blood segmented neutrophils/ 100 leukocytesOrdered By: Angela Sorianous on 12-21-2024 Segmented neutrophils/100 WBC (Bld) 71 % High 47-70 [facility] CBC W/Diff, Automatedon 12-10 Absolute Neut Normal 2.0-7.7 [facility] Comment on above: Result Comment: Canc elled via OM: Order cancelled - Patient discharged Performed By: #### L 100.0100, L500.2500 ####[facility] [address] [place], [address] HCT Normal 40-54 [facility] Comment on above: Result Comment: Canc elled via OM: Order cancelled - Patient discharged Performed By: #### L 100.0100, L500.2500 ####[facility] [address] [place], [address] HGB Normal 13.0-16.5 [facility] Comment on above: Result Comment: Canc elled via OM: Order cancelled - Patient discharged Performed By: #### L 100.0100, L500.2500 ####[facility] [address] [place], [address] MCH Normal 27.0-32.0 [facility] Comment on above: Result Comment: Canc elled via OM: Order cancelled - Patient discharged Performed By: #### L 100.0100, L500.2500 ####[facility] [address] [place], [address] MCHC Normal 32-36 [facility] Comment on above: Result Comment: Canc elled via OM: Order cancelled - Patient discharged Performed By: #### L 100.0100, L500.2500 ####[facility] [address] [place], [address] MCV Normal 80-94 [facility] Comment on above: Result Comment: Canc elled via OM: Order cancelled - Patient discharged Performed By: #### L 100.0100, L500.2500 ####[facility] [address] [place], [address] NEUT% Normal 47-70 [facility] Comment on above: Result Comment: Canc elled via OM: Order cancelled - Patient discharged Performed By: #### L 100.0100, L500.2500 ####[facility] [address] [place], [address] PLT Normal 150-450 [facility] Comment on above: Result Comment: Canc elled via OM: Order cancelled - Patient discharged Performed By: #### L 100.0100, L500.2500 ####[facility] [address] [place], [address] RBC Normal 4.6-6.2 [facility] Comment on above: Result Comment: Canc elled via OM: Order cancelled - Patient discharged Performed By: #### L 100.0100, L500.2500 ####[facility] [address] [place], [address] RDW CV Normal 11.6-14.6 [facility] Comment on above: Result Comment: Canc elled via OM: Order cancelled - Patient discharged Performed By: #### L 100.0100, L500.2500 ####[facility] [address] [place], [address] RDW SD Normal 35.1-43.9 [facility] Comment on above: Result Comment: Canc elled via OM: Order cancelled - Patient discharged Performed By: #### L 100.0100, L500.2500 ####[facility] [address] [place], [address] WBC Normal 4.4-11.0 [facility] Comment on above: Result Comment: Canc elled via OM: Order cancelled - Patient discharged Performed By: #### L 100.0100, L500.2500 ####[facility] [address] [place], [address] Comprehensive Metabolic Prof ilon 12-21-2024 Albumin [Mass/Vol] 2.9 g/dL Low 3.2-5.0 [facility] Comment on above: Performed By: #### L 501.2300, L100.0100, L500.4050 ####[facility] [address] [place], [address] Albumin/Globulin [Mass ratio] 1.1 {ratio} Normal 0.9-2.4 [facility] Comment on above: Performed By: #### L 501.2300, L100.0100, L500.4050 ####[facility] [address] [place], [address] ALK P 42 U/L Low 45-117 [facility] Comment on above: Performed By: #### L 501.2300, L100.0100, L500.4050 ####[facility] [address] [place], [address] ALT [Catalytic activity/Vol] 26 U/L Normal 16-61 [facility] Comment on above: Performed By: #### L 501.2300, L100.0100, L500.4050 ####[facility] [address] [place], [address] AST [Catalytic activity/Vol] 13 U/L Low 15-37 [facility] Comment on above: Performed By: #### L 501.2300, L100.0100, L500.4050 ####[facility] [address] [place], [address] Bilirubin [Mass/Vol] 0.40 mg/dL Normal 0.20-1.00 [facility] Comment on above: Result Comment: For patients on eltrombopag therapy, use of Dimension [place] TBIL is not recommended. Performed By: #### L 501.2300, L100.0100, L500.4050 ####[facility] [address] [place], [address] BUN/CRE 17.1 RATIO Normal 10-20 [facility] Comment on above: Performed By: #### L 501.2300, L100.0100, L500.4050 ####[facility] [address] [place], [address] CA,Total 8.2 mg/dL Low 8.5-10.1 [facility] Comment on above: Performed By: #### L 501.2300, L100.0100, L500.4050 ####[facility] [address] [place], [address] Chloride [Moles/Vol] 112 mmol/L High 98-107 [facility] Comment on above: Performed By: #### L 501.2300, L100.0100, L500.4050 ####[facility] [address] [place], [address] CO2 [Moles/Vol] 24.0 mmol/L Normal 21.0-32.0 [facility] Comment on above: Performed By: #### L 501.2300, L100.0100, L500.4050 ####[facility] [address] [place], [address] Creatinine [Mass/Vol] 1.17 mg/dL Normal 0.70-1.30 [facility] Comment on above: Result Comment: The validity of the calculated GFR GFRAA in patients over70 years has not been determined. Clinical correlation isessential. Performed By: #### L 501.2300, L100.0100, L500.4050 ####[facility] [address] [place], [address] ECRCL 62.20 ml/min Normal [facility] Comment on above: Performed By: #### L 501.2300, L100.0100, L500.4050 ####[facility] [address] [place], [address] EST GFR - AA 79 mL/min Normal >60 [facility] Comment on above: Result Comment: Afri can [place] GFR Calc Performed By: #### L 501.2300, L100.0100, L500.4050 ####[facility] [address] [place], [address] GAP 6 Normal 5-15 [facility] Comment on above: Performed By: #### L 501.2300, L100.0100, L500.4050 ####[facility] [address] [place], [address] GFR/1.73 sq M.predicted among non-blacks MDRD (S/P/Bld) [Vol rate/Area] 65 mL/min/{1.73_m2} Normal >60 [facility] Comment on above: Result Comment: Non- GFR Calc Performed By: #### L 501.2300, L100.0100, L500.4050 ####[facility] [address] [place], [address] Globulin (S) [Mass/Vol] 2.6 g/dL Normal 2.2-4.2 [facility] Comment on above: Performed By: #### L 501.2300, L100.0100, L500.4050 ####[facility] [address] [place], [address] Glucose [Mass/Vol] 118 mg/dL High 74-106 [facility] Comment on above: Result Comment: Fast ing Glucose result from 100 to 125 mg/dLsuggests IMPAIRED HOMEOSTASIS per A.D.A. criteria. Performed By: #### L 501.2300, L100.0100, L500.4050 ####[facility] [address] [place], [address] Potassium [Moles/Vol] 3.9 mmol/L Normal 3.5-5.1 [facility] Comment on above: Performed By: #### L 501.2300, L100.0100, L500.4050 ####[facility] [address] [place], [address] Sodium [Moles/Vol] 142 mmol/L Normal 136-145 [facility] Comment on above: Performed By: #### L 501.2300, L100.0100, L500.4050 ####[facility] [address] [place], [address] T PROT 5.5 g/dL Low 6.4-8.2 [facility] Comment on above: Performed By: #### L 501.2300, L100.0100, L500.4050 ####[facility] [address] [place], [address] Urea nitrogen [Mass/Vol] 20 mg/dL High 7-18 [facility] Comment on above: Performed By: #### L 501.2300, L100.0100, L500.4050 ####[facility] [address] [place], [address] Oncology Visit Reporton 12-10 Oncology Visit Report Normal [facility] Phosphoruson 12-21-2024 Phosphate [Mass/Vol] 3.0 mg/dL Normal 2.5-4.9 [facility] Comment on above: Performed By: #### L 501.2300, L100.0100, L500.4050 ####[facility] [address] [place], [address] Review by pathologistOrdered By: Angela Rodriguez on 12-21-2024 Pathologist review [place] (Unsp spec) [Interp] Reviewed [facility] Comment on above: Previous reported re sult: Samira rehman Edited by: BETH on 12/22/24:1502Microcytic anemia.Clinical correlation necessary.Duglas Martínez M.D. 12/22/24 AMENDED REPORT 12/22/24 1502 PATH REV previously reported as: Samira rehman Total cell countOrdered By: Angela Rodriguez on 12-21-2024 Cells counted Molgen (Bld/Tiss) [#] 100 MANUAL DIFF [facility] Basic Metabolic Profile (BMP )on 12-20-2024 BUN Normal 7-18 [facility] Comment on above: Result Comment: Canc elled via OM: Order cancelled - Patient discharged Performed By: #### L 500.2500, L100.0100 ####[facility] [address] [place], [address] BUN/CRE Normal 10-20 [facility] Comment on above: Result Comment: Canc elled via OM: Order cancelled - Patient discharged Performed By: #### L 500.2500, L100.0100 ####[facility] [address] [place], [address] CA,Total Normal 8.5-10.1 [facility] Comment on above: Result Comment: Canc elled via OM: Order cancelled - Patient discharged Performed By: #### L 500.2500, L100.0100 ####[facility] [address] [place], [address] CL Normal 98-107 [facility] Comment on above: Result Comment: Canc elled via OM: Order cancelled - Patient discharged Performed By: #### L 500.2500, L100.0100 ####[facility] [address] [place], [address] CO2 Normal 21.0-32.0 [facility] Comment on above: Result Comment: Canc elled via OM: Order cancelled - Patient discharged Performed By: #### L 500.2500, L100.0100 ####[facility] [address] [place], [address] CREAT,SERUM Normal 0.70-1.30 [facility] Comment on above: Result Comment: Canc elled via OM: Order cancelled - Patient discharged Performed By: #### L 500.2500, L100.0100 ####[facility] [address] [place], [address] EST GFR Normal >60 [facility] Comment on above: Result Comment: Canc elled via OM: Order cancelled - Patient discharged Performed By: #### L 500.2500, L100.0100 ####[facility] [address] [place], [address] EST GFR - AA Normal >60 [facility] Comment on above: Result Comment: Canc elled via OM: Order cancelled - Patient discharged Performed By: #### L 500.2500, L100.0100 ####[facility] [address] [place], [address] GAP Normal 5-15 [facility] Comment on above: Result Comment: Canc elled via OM: Order cancelled - Patient discharged Performed By: #### L 500.2500, L100.0100 ####[facility] [address] [place], [address] GLU Normal 74-106 [facility] Comment on above: Result Comment: Canc elled via OM: Order cancelled - Patient discharged Performed By: #### L 500.2500, L100.0100 ####[facility] [address] [place], [address] Potassium Normal 3.5-5.1 [facility] Comment on above: Result Comment: Canc elled via OM: Order cancelled - Patient discharged Performed By: #### L 500.2500, L100.0100 ####[facility] [address] [place], [address] Basic Metabolic Profile (BMP) Normal 136-145 [facility] Comment on above: Result Comment: Canc elled via OM: Order cancelled - Patient discharged Performed By: #### L 500.2500, L100.0100 ####[facility] [address] [place], [address] CBC W/Diff, Automatedon 02- Absolute Neut Normal 2.0-7.7 [facility] Comment on above: Result Comment: Canc elled via OM: Order cancelled - Patient discharged Performed By: #### L 500.2500, L100.0100 ####[facility] [address] [place], [address] HCT Normal 40-54 [facility] Comment on above: Result Comment: Canc elled via OM: Order cancelled - Patient discharged Performed By: #### L 500.2500, L100.0100 ####[facility] [address] [place], [address] HGB Normal 13.0-16.5 [facility] Comment on above: Result Comment: Canc elled via OM: Order cancelled - Patient discharged Performed By: #### L 500.2500, L100.0100 ####[facility] [address] [place], [address] MCH Normal 27.0-32.0 [facility] Comment on above: Result Comment: Canc elled via OM: Order cancelled - Patient discharged Performed By: #### L 500.2500, L100.0100 ####[facility] [address] [place], [address] MCHC Normal 32-36 [facility] Comment on above: Result Comment: Canc elled via OM: Order cancelled - Patient discharged Performed By: #### L 500.2500, L100.0100 ####[facility] [address] [place], [address] MCV Normal 80-94 [facility] Comment on above: Result Comment: Canc elled via OM: Order cancelled - Patient discharged Performed By: #### L 500.2500, L100.0100 ####[facility] [address] [place], [address] NEUT% Normal 47-70 [facility] Comment on above: Result Comment: Canc elled via OM: Order cancelled - Patient discharged Performed By: #### L 500.2500, L100.0100 ####[facility] [address] [place], [address] PLT Normal 150-450 [facility] Comment on above: Result Comment: Canc elled via OM: Order cancelled - Patient discharged Performed By: #### L 500.2500, L100.0100 ####[facility] [address] [place], [address] RBC Normal 4.6-6.2 [facility] Comment on above: Result Comment: Canc elled via OM: Order cancelled - Patient discharged Performed By: #### L 500.2500, L100.0100 ####[facility] [address] [place], [address] RDW CV Normal 11.6-14.6 [facility] Comment on above: Result Comment: Canc elled via OM: Order cancelled - Patient discharged Performed By: #### L 500.2500, L100.0100 ####[facility] [address] [place], [address] RDW SD Normal 35.1-43.9 [facility] Comment on above: Result Comment: Canc elled via OM: Order cancelled - Patient discharged Performed By: #### L 500.2500, L100.0100 ####[facility] [address] [place], [address] WBC Normal 4.4-11.0 [facility] Comment on above: Result Comment: Canc elled via OM: Order cancelled - Patient discharged Performed By: #### L 500.2500, L100.0100 ####[facility] [address] [place], [address] Basic Metabolic Profile (BMP )on 12-19-2024 BUN Normal 7-18 [facility] Comment on above: Result Comment: Canc elled via OM: Order cancelled - Patient discharged Performed By: #### L 500.2500, L100.0100 ####[facility] [facility] [address] [place], [address] BUN/CRE Normal 10-20 [facility] Comment on above: Result Comment: Canc elled via OM: Order cancelled - Patient discharged Performed By: #### L 500.2500, L100.0100 ####[facility] [address] [place], [address] CA,Total Normal 8.5-10.1 [facility] Comment on above: Result Comment: Canc elled via OM: Order cancelled - Patient discharged Performed By: #### L 500.2500, L100.0100 ####[facility] [address] [place], [address] CL Normal 98-107 [facility] Comment on above: Result Comment: Canc elled via OM: Order cancelled - Patient discharged Performed By: #### L 500.2500, L100.0100 ####[facility] [address] [place], [address] CO2 Normal 21.0-32.0 [facility] Comment on above: Result Comment: Canc elled via OM: Order cancelled - Patient discharged Performed By: #### L 500.2500, L100.0100 ####[facility] [address] [place], [address] CREAT,SERUM Normal 0.70-1.30 [facility] Comment on above: Result Comment: Canc elled via OM: Order cancelled - Patient discharged Performed By: #### L 500.2500, L100.0100 ####[facility] [address] [place], [address] EST GFR Normal >60 [facility] Comment on above: Result Comment: Canc elled via OM: Order cancelled - Patient discharged Performed By: #### L 500.2500, L100.0100 ####[facility] [address] [place], [address] EST GFR - AA Normal >60 [facility] Comment on above: Result Comment: Canc elled via OM: Order cancelled - Patient discharged Performed By: #### L 500.2500, L100.0100 ####[facility] [address] [place], [address] GAP Normal 5-15 [facility] Comment on above: Result Comment: Canc elled via OM: Order cancelled - Patient discharged Performed By: #### L 500.2500, L100.0100 ####[facility] [address] [place], [address] GLU Normal 74-106 [facility] Comment on above: Result Comment: Canc elled via OM: Order cancelled - Patient discharged Performed By: #### L 500.2500, L100.0100 ####[facility] [address] [place], [address] Potassium Normal 3.5-5.1 [facility] Comment on above: Result Comment: Canc elled via OM: Order cancelled - Patient discharged Performed By: #### L 500.2500, L100.0100 ####[facility] [address] [place], [address] Basic Metabolic Profile (BMP) Normal 136-145 [facility] Comment on above: Result Comment: Canc elled via OM: Order cancelled - Patient discharged Performed By: #### L 500.2500, L100.0100 ####[facility] [address] [place], [address] CBC W/Diff, Automatedon 02- Absolute Neut Normal 2.0-7.7 [facility] Comment on above: Result Comment: Canc elled via OM: Order cancelled - Patient discharged Performed By: #### L 500.2500, L100.0100 ####[facility] [address] [place], [address] HCT Normal 40-54 [facility] Comment on above: Result Comment: Canc elled via OM: Order cancelled - Patient discharged Performed By: #### L 500.2500, L100.0100 ####[facility] [address] [place], [address] HGB Normal 13.0-16.5 [facility] Comment on above: Result Comment: Canc elled via OM: Order cancelled - Patient discharged Performed By: #### L 500.2500, L100.0100 ####[facility] [address] [place], [address] MCH Normal 27.0-32.0 [facility] Comment on above: Result Comment: Canc elled via OM: Order cancelled - Patient discharged Performed By: #### L 500.2500, L100.0100 ####[facility] [address] [place], [address] MCHC Normal 32-36 [facility] Comment on above: Result Comment: Canc elled via OM: Order cancelled - Patient discharged Performed By: #### L 500.2500, L100.0100 ####[facility] [address] [place], [address] MCV Normal 80-94 [facility] Comment on above: Result Comment: Canc elled via OM: Order cancelled - Patient discharged Performed By: #### L 500.2500, L100.0100 ####[facility] [address] [place], [address] NEUT% Normal 47-70 [facility] Comment on above: Result Comment: Canc elled via OM: Order cancelled - Patient discharged Performed By: #### L 500.2500, L100.0100 ####[facility] [address] [place], [address] PLT Normal 150-450 [facility] Comment on above: Result Comment: Canc elled via OM: Order cancelled - Patient discharged Performed By: #### L 500.2500, L100.0100 ####[facility] [address] [place], [address] RBC Normal 4.6-6.2 [facility] Comment on above: Result Comment: Canc elled via OM: Order cancelled - Patient discharged Performed By: #### L 500.2500, L100.0100 ####[facility] [address] [place], [address] RDW CV Normal 11.6-14.6 [facility] Comment on above: Result Comment: Canc elled via OM: Order cancelled - Patient discharged Performed By: #### L 500.2500, L100.0100 ####[facility] [address] [place], [address] RDW SD Normal 35.1-43.9 [facility] Comment on above: Result Comment: Canc elled via OM: Order cancelled - Patient discharged Performed By: #### L 500.2500, L100.0100 ####[facility] [address] [place], [address] WBC Normal 4.4-11.0 [facility] Comment on above: Result Comment: Canc elled via OM: Order cancelled - Patient discharged Performed By: #### L 500.2500, L100.0100 ####[facility] [address] [place], [address] Basic Metabolic Profile (BMP )on 12-18-2024 BUN Normal 7-18 [facility] Comment on above: Result Comment: Canc elled via OM: Order cancelled - Patient discharged Performed By: #### L 500.2500, L100.0100 ####[facility] [address] [place], [address] BUN/CRE Normal 10-20 [facility] Comment on above: Result Comment: Canc elled via OM: Order cancelled - Patient discharged Performed By: #### L 500.2500, L100.0100 ####[facility] [address] [place], [address] CA,Total Normal 8.5-10.1 [facility] Comment on above: Result Comment: Canc elled via OM: Order cancelled - Patient discharged Performed By: #### L 500.2500, L100.0100 ####[facility] [address] [place], [address] CL Normal 98-107 [facility] Comment on above: Result Comment: Canc elled via OM: Order cancelled - Patient discharged Performed By: #### L 500.2500, L100.0100 ####[facility] [address] [place], [address] CO2 Normal 21.0-32.0 [facility] Comment on above: Result Comment: Canc elled via OM: Order cancelled - Patient discharged Performed By: #### L 500.2500, L100.0100 ####[facility] [address] [place], [address] CREAT,SERUM Normal 0.70-1.30 [facility] Comment on above: Result Comment: Canc elled via OM: Order cancelled - Patient discharged Performed By: #### L 500.2500, L100.0100 ####[facility] [address] [place], [address] EST GFR Normal >60 [facility] Comment on above: Result Comment: Canc elled via OM: Order cancelled - Patient discharged Performed By: #### L 500.2500, L100.0100 ####[facility] [address] [place], [address] EST GFR - AA Normal >60 [facility] Comment on above: Result Comment: Canc elled via OM: Order cancelled - Patient discharged Performed By: #### L 500.2500, L100.0100 ####[facility] [address] [place], [address] GAP Normal 5-15 [facility] Comment on above: Result Comment: Canc elled via OM: Order cancelled - Patient discharged Performed By: #### L 500.2500, L100.0100 ####[facility] [address] [place], [address] GLU Normal 74-106 [facility] Comment on above: Result Comment: Canc elled via OM: Order cancelled - Patient discharged Performed By: #### L 500.2500, L100.0100 ####[facility] [address] [place], [address] Potassium Normal 3.5-5.1 [facility] Comment on above: Result Comment: Canc elled via OM: Order cancelled - Patient discharged Performed By: #### L 500.2500, L100.0100 ####[facility] [address] [place], [address] Basic Metabolic Profile (BMP) Normal 136-145 [facility] Comment on above: Result Comment: Canc elled via OM: Order cancelled - Patient discharged Performed By: #### L 500.2500, L100.0100 ####[facility] [address] [place], [address] CBC W/Diff, Automatedon 02-0 Absolute Neut Normal 2.0-7.7 [facility] Comment on above: Result Comment: Canc elled via OM: Order cancelled - Patient discharged Performed By: #### L 500.2500, L100.0100 ####[facility] [address] [place], [address] HCT Normal 40-54 [facility] Comment on above: Result Comment: Canc elled via OM: Order cancelled - Patient discharged Performed By: #### L 500.2500, L100.0100 ####[facility] [address] [place], [address] HGB Normal 13.0-16.5 [facility] Comment on above: Result Comment: Canc elled via OM: Order cancelled - Patient discharged Performed By: #### L 500.2500, L100.0100 ####[facility] [address] [place], [address] MCH Normal 27.0-32.0 [facility] Comment on above: Result Comment: Canc elled via OM: Order cancelled - Patient discharged Performed By: #### L 500.2500, L100.0100 ####[facility] [address] [place], [address] MCHC Normal 32-36 [facility] Comment on above: Result Comment: Canc elled via OM: Order cancelled - Patient discharged Performed By: #### L 500.2500, L100.0100 ####[facility] [address] [place], [address] MCV Normal 80-94 [facility] Comment on above: Result Comment: Canc elled via OM: Order cancelled - Patient discharged Performed By: #### L 500.2500, L100.0100 ####[facility] [address] [place], [address] NEUT% Normal 47-70 [facility] Comment on above: Result Comment: Canc elled via OM: Order cancelled - Patient discharged Performed By: #### L 500.2500, L100.0100 ####[facility] [address] [place], [address] PLT Normal 150-450 [facility] Comment on above: Result Comment: Canc elled via OM: Order cancelled - Patient discharged Performed By: #### L 500.2500, L100.0100 ####[facility] [address] [place], [address] RBC Normal 4.6-6.2 [facility] Comment on above: Result Comment: Canc elled via OM: Order cancelled - Patient discharged Performed By: #### L 500.2500, L100.0100 ####[facility] [address] [place], [address] RDW CV Normal 11.6-14.6 [facility] Comment on above: Result Comment: Canc elled via OM: Order cancelled - Patient discharged Performed By: #### L 500.2500, L100.0100 ####[facility] [address] [place], [address] RDW SD Normal 35.1-43.9 [facility] Comment on above: Result Comment: Canc elled via OM: Order cancelled - Patient discharged Performed By: #### L 500.2500, L100.0100 ####[facility] [address] [place], [address] WBC Normal 4.4-11.0 [facility] Comment on above: Result Comment: Canc elled via OM: Order cancelled - Patient discharged Performed By: #### L 500.2500, L100.0100 ####[facility] [address] [place], [address] Basic Metabolic Profile (BMP )on 12-17-2024 BUN Normal 7-18 [facility] Comment on above: Result Comment: Canc elled via OM: Order cancelled - Patient discharged Performed By: #### L 100.0100, L500.2500 ####[facility] [address] [place], [address] BUN/CRE Normal 10-20 [facility] Comment on above: Result Comment: Canc elled via OM: Order cancelled - Patient discharged Performed By: #### L 100.0100, L500.2500 ####[facility] [address] [place], [address] CA,Total Normal 8.5-10.1 [facility] Comment on above: Result Comment: Canc elled via OM: Order cancelled - Patient discharged Performed By: #### L 100.0100, L500.2500 ####[facility] [address] [place], [address] CL Normal 98-107 [facility] Comment on above: Result Comment: Canc elled via OM: Order cancelled - Patient discharged Performed By: #### L 100.0100, L500.2500 ####[facility] [address] [place], [address] CO2 Normal 21.0-32.0 [facility] Comment on above: Result Comment: Canc elled via OM: Order cancelled - Patient discharged Performed By: #### L 100.0100, L500.2500 ####[facility] [address] [place], [address] CREAT,SERUM Normal 0.70-1.30 [facility] Comment on above: Result Comment: Canc elled via OM: Order cancelled - Patient discharged Performed By: #### L 100.0100, L500.2500 ####[facility] [address] [place], [address] EST GFR Normal >60 [facility] Comment on above: Result Comment: Canc elled via OM: Order cancelled - Patient discharged Performed By: #### L 100.0100, L500.2500 ####[facility] [address] [place], [address] EST GFR - AA Normal >60 [facility] Comment on above: Result Comment: Canc elled via OM: Order cancelled - Patient discharged Performed By: #### L 100.0100, L500.2500 ####[facility] [address] [place], [address] GAP Normal 5-15 [facility] Comment on above: Result Comment: Canc elled via OM: Order cancelled - Patient discharged Performed By: #### L 100.0100, L500.2500 ####[facility] [address] [place], [address] GLU Normal 74-106 [facility] Comment on above: Result Comment: Canc elled via OM: Order cancelled - Patient discharged Performed By: #### L 100.0100, L500.2500 ####[facility] [address] [place], [address] Potassium Normal 3.5-5.1 [facility] Comment on above: Result Comment: Canc elled via OM: Order cancelled - Patient discharged Performed By: #### L 100.0100, L500.2500 ####[facility] [address] [place], [address] Basic Metabolic Profile (BMP) Normal 136-145 [facility] Comment on above: Result Comment: Canc elled via OM: Order cancelled - Patient discharged Performed By: #### L 100.0100, L500.2500 ####[facility] [address] [place], [address] CBC W/Diff, Automatedon 02-0 -2024 Absolute Neut Normal 2.0-7.7 [facility] Comment on above: Result Comment: Canc elled via OM: Order cancelled - Patient discharged Performed By: #### L 100.0100, L500.2500 ####[facility] [address] [place], [address] HCT Normal 40-54 [facility] Comment on above: Result Comment: Canc elled via OM: Order cancelled - Patient discharged Performed By: #### L 100.0100, L500.2500 ####[facility] [address] [place], [address] HGB Normal 13.0-16.5 [facility] Comment on above: Result Comment: Canc elled via OM: Order cancelled - Patient discharged Performed By: #### L 100.0100, L500.2500 ####[facility] [address] [place], [address] MCH Normal 27.0-32.0 [facility] Comment on above: Result Comment: Canc elled via OM: Order cancelled - Patient discharged Performed By: #### L 100.0100, L500.2500 ####[facility] [address] [place], [address] MCHC Normal 32-36 [facility] Comment on above: Result Comment: Canc elled via OM: Order cancelled - Patient discharged Performed By: #### L 100.0100, L500.2500 ####[facility] [address] [place], [address] MCV Normal 80-94 [facility] Comment on above: Result Comment: Canc elled via OM: Order cancelled - Patient discharged Performed By: #### L 100.0100, L500.2500 ####[facility] [address] [place], [address] NEUT% Normal 47-70 [facility] Comment on above: Result Comment: Canc elled via OM: Order cancelled - Patient discharged Performed By: #### L 100.0100, L500.2500 ####[facility] [address] [place], [address] PLT Normal 150-450 [facility] Comment on above: Result Comment: Canc elled via OM: Order cancelled - Patient discharged Performed By: #### L 100.0100, L500.2500 ####[facility] [address] [place], [address] RBC Normal 4.6-6.2 [facility] Comment on above: Result Comment: Canc elled via OM: Order cancelled - Patient discharged Performed By: #### L 100.0100, L500.2500 ####[facility] [address] [place], [address] RDW CV Normal 11.6-14.6 [facility] Comment on above: Result Comment: Canc elled via OM: Order cancelled - Patient discharged Performed By: #### L 100.0100, L500.2500 ####[facility] [address] [place], [address] RDW SD Normal 35.1-43.9 [facility] Comment on above: Result Comment: Canc elled via OM: Order cancelled - Patient discharged Performed By: #### L 100.0100, L500.2500 ####[facility] [address] [place], [address] WBC Normal 4.4-11.0 [facility] Comment on above: Result Comment: Canc elled via OM: Order cancelled - Patient discharged Performed By: #### L 100.0100, L500.2500 ####[facility] [address] [place], [address] Respiratory Cultureon 2024 RESPC Mixed normal respira tory laure. No Haemophilus, Streptococcus pneumoniae, beta-hemolytic Streptococcus or Staphylococcus aureus isolated. Normal [facility] Comment on above: Performed By: #### M 100.2400, M100.2000 ####[facility] [address] [place], [address] Absolute lymphocyte countOrd ered By: Amber Cat on 12-16-2024 Lymphocytes Auto (Unsp spec) [#/Vol] 0.35 10*3/uL Low 0.83-4.51 [facility] Automated lymphocyte count a s percentage of total leukocytesOrdered By: Amber Cat on 12-16-2024 Lymphocytes/100 WBC Auto (Unsp spec) 5.6 % Low 19-41 [facility] Basic Metabolic Profile (BMP )on 12-16-2024 BUN/CRE 18.0 RATIO Normal 10-20 [facility] Comment on above: Performed By: #### L 100.0100, L500.2500 ####[facility] [address] [place], [address] CA,Total 9.0 mg/dL Normal 8.5-10.1 [facility] Comment on above: Performed By: #### L 100.0100, L500.2500 ####[facility] [address] [place], [address] Chloride [Moles/Vol] 110 mmol/L High 98-107 [facility] Comment on above: Performed By: #### L 100.0100, L500.2500 ####[facility] [address] [place], [address] CO2 [Moles/Vol] 19.0 mmol/L Low 21.0-32.0 [facility] Comment on above: Performed By: #### L 100.0100, L500.2500 ####[facility] [address] [place], [address] Creatinine [Mass/Vol] 1.11 mg/dL Normal 0.70-1.30 [facility] Comment on above: Result Comment: The validity of the calculated GFR GFRAA in patients over70 years has not been determined. Clinical correlation isessential. Performed By: #### L 100.0100, L500.2500 ####[facility] [address] [place], [address] ECRCL 63.94 ml/min Normal [facility] Comment on above: Performed By: #### L 100.0100, L500.2500 ####[facility] [address] [place], [address] EST GFR - AA 84 mL/min Normal >60 [facility] Comment on above: Result Comment: Afri can Gibraltarian GFR Calc Performed By: #### L 100.0100, L500.2500 ####[facility] [address] [place], [address] GAP 7 Normal 5-15 [facility] Comment on above: Performed By: #### L 100.0100, L500.2500 ####[facility] [address] [place], [address] GFR/1.73 sq M.predicted among non-blacks MDRD (S/P/Bld) [Vol rate/Area] 69 mL/min/{1.73_m2} Normal >60 [facility] Comment on above: Result Comment: Non- GFR Calc Performed By: #### L 100.0100, L500.2500 ####[facility] [address] [place], [address] Glucose [Mass/Vol] 224 mg/dL High 74-106 [facility] Comment on above: Result Comment: Gluc ose result greater than or equal to 200 mg/dLsuggests DIABETES MELLITUS per A.D.A. criteria. Performed By: #### L 100.0100, L500.2500 ####[facility] [address] [place], [address] Potassium [Moles/Vol] 4.0 mmol/L Normal 3.5-5.1 [facility] Comment on above: Performed By: #### L 100.0100, L500.2500 ####[facility] [address] [place], [address] Sodium [Moles/Vol] 137 mmol/L Normal 136-145 [facility] Comment on above: Performed By: #### L 100.0100, L500.2500 ####[facility] [address] [place], [address] Urea nitrogen [Mass/Vol] 20 mg/dL High 7-18 [facility] Comment on above: Performed By: #### L 100.0100, L500.2500 ####[facility] [address] [place], [address] Basophil percentageOrdered B y: Amber Cat on 12-16-2024 Basophils/100 WBC (Bld) 0.2 % 0-1 [facility] Bedside Glucoseon 12-16-2024 FINGERSTICK GLU 251 mg/dL High 74-106 [facility] Comment on above: Result Comment: EMERALD GEMENT OF PATIENT CARE PER NURSING PROTOCOL Performed By: #### L 501.080 ####[facility] [address] [place], [address] FINGERSTICK GLU 209 mg/dL High 74-106 [facility] Comment on above: Result Comment: EMERALD GEMENT OF PATIENT CARE PER NURSING PROTOCOL Performed By: #### L 501.080 ####[facility] [address] [place], [address] CBC W/Diff, Automatedon Absolute Lymph 0.35 X10 3/uL Low 0.83-4.51 [facility] Comment on above: Performed By: #### L 100.0100, L500.2500 ####[facility] [address] [place], [address] Absolute Neut 5.4 X10 3/uL Normal 2.0-7.7 [facility] Comment on above: Performed By: #### L 100.0100, L500.2500 ####[facility] [address] [place], [address] Basophils/100 WBC (Bld) 0.2 % Normal 0-1 [facility] Comment on above: Performed By: #### L 100.0100, L500.2500 ####[facility] [address] [place], [address] Eosinophils/100 WBC (Bld) 0.0 % Normal 0-5 [facility] Comment on above: Performed By: #### L 100.0100, L500.2500 ####[facility] [address] [place], [address] Erythrocyte distribution width (RBC) [Ratio] 19.4 % High 11.6-14.6 [facility] Comment on above: Performed By: #### L 100.0100, L500.2500 ####[facility] [address] [place], [address] Hematocrit (Bld) [Volume fraction] 34.6 % Low 40-54 [facility] Comment on above: Performed By: #### L 100.0100, L500.2500 ####[facility] [address] [place], [address] Hemoglobin (Bld) [Mass/Vol] 10.9 g/dL Low 13.0-16.5 [facility] Comment on above: Performed By: #### L 100.0100, L500.2500 ####[facility] [address] [place], [address] IG% 2.400 High 0.0-0.9 [facility] Comment on above: Result Comment: IG% - Immature Granulocytes (promyelocytes, myelocytes andmetamyelocytes) > 1% indicates that a LEFT SHIFT is Present. Performed By: #### L 100.0100, L500.2500 ####[facility] [address] [place], [address] Lymphocytes/100 WBC (Bld) 5.6 % Low 19-41 [facility] Comment on above: Performed By: #### L 100.0100, L500.2500 ####[facility] [address] [place], [address] MCH (RBC) [Entitic mass] 22.9 pg Low 27.0-32.0 [facility] Comment on above: Performed By: #### L 100.0100, L500.2500 ####[facility] [address] [place], [address] MCHC (RBC) [Mass/Vol] 31.5 g/dL Low 32-36 [facility] Comment on above: Performed By: #### L 100.0100, L500.2500 ####[facility] [address] [place], [address] MCV (RBC) [Entitic vol] 72.5 fL Low 80-94 [facility] Comment on above: Performed By: #### L 100.0100, L500.2500 ####[facility] [address] [place], [address] Monocytes/100 WBC (Bld) 5.0 % Normal 0-10 [facility] Comment on above: Performed By: #### L 100.0100, L500.2500 ####[facility] [address] [place], [address] Neutrophils/100 WBC (Bld) 86.8 % High 47-70 [facility] Comment on above: Performed By: #### L 100.0100, L500.2500 ####[facility] [address] [place], [address] Nucleated RBC (Bld) [#/Vol] 0 10*3/uL Normal 0-5 [facility] Comment on above: Performed By: #### L 100.0100, L500.2500 ####[facility] [address] [place], [address] Platelet mean volume (Bld) [Entitic vol] 9.3 fL Normal 6.2-12.0 [facility] Comment on above: Performed By: #### L 100.0100, L500.2500 ####[facility] [address] [place], [address] Platelets (Bld) [#/Vol] 203 10*3/uL Normal 150-450 [facility] Comment on above: Performed By: #### L 100.0100, L500.2500 ####[facility] [address] [place], [address] RBC (Bld) [#/Vol] 4.77 10*6/uL Normal 4.6-6.2 [facility] Comment on above: Performed By: #### L 100.0100, L500.2500 ####[facility] [address] [place], [address] RDW SD 50.5 fl High 35.1-43.9 [facility] Comment on above: Performed By: #### L 100.0100, L500.2500 ####[facility] [address] [place], [address] WBC (Bld) [#/Vol] 6.3 10*3/uL Normal 4.4-11.0 [facility] Comment on above: Performed By: #### L 100.0100, L500.2500 ####[facility] [address] [place], [address] Carbon dioxide measurementOr dered By: Amber Cat on 12-16-2024 CO2 [Moles/Vol] 19.0 mmol/L Low 21.0-32.0 [facility] Chloride measurementOrdered By: Amber Cat on 12-16-2024 Chloride [Moles/Vol] 110 mmol/L High 98-107 [facility] Discharge Instructionon 02-0 Discharge Instruction Normal [facility] Eosinophil percentageOrdered By: Amber Cat on 12-16-2024 Eosinophils/100 WBC (Bld) 0.0 % 0-5 [facility] Erythrocyte distribution wid th ratioOrdered By: Amber Cat on 12-16-2024 Erythrocyte distribution width (RBC) [Ratio] 19.4 % High 11.6-14.6 [facility] Erythrocyte distribution wid th standard deviationOrdered By: Amber Cat on 12-16-2024 Erythrocyte distribution width (RBC) [Ratio] 50.5 fl High 35.1-43.9 [facility] Glomerular filtration rate ( GFR) estimationOrdered By: Amber Cat on 12-16-2024 GFR/1.73 sq M.predicted among non-blacks MDRD (S/P/Bld) [Vol rate/Area] 69 mL/min/{1.73_m2} >60 [facility] Glucose measurementOrdered B y: Amber Cat on 12-16-2024 Glucose [Mass/Vol] 224 mg/dL High 74-106 [facility] Glucose measurement at bedsi deOrdered By: Amber Cat on 12-16-2024 Glucose [Mass/Vol] 251 mg/dL High 74-106 [facility] Gram Stainon 12-16-2024 GS Acceptable Specimen? No (>25 Epithelial cells per/lpf) Gram Stain 4+ Gram positive cocci 1+ Gram positive rods 1+ Gram positive cocci in chains 2+ Epithelial cells Normal [facility] Comment on above: Performed By: #### M 100.2400, M100.1999 ####[facility] [address] [place], [address] Hematocrit Auto (Bld) [Volum e fraction]Ordered By: Amber Cat on 12-16-2024 Hematocrit (Bld) [Volume fraction] 34.6 % Low 40-54 [facility] Hemoglobin measurementOrdere d By: Amber Cat on 12-16-2024 Hemoglobin (Bld) [Mass/Vol] 10.9 g/dL Low 13.0-16.5 [facility] Immature granulocytes/100 WB C Auto (Bld)Ordered By: Amber Cat on 12-16-2024 Immature granulocytes/100 WBC (Bld) 2.400 % High 0.0-0.9 [facility] MCV (mean corpuscular volume ) determinationOrdered By: Amber Cat on 12-16-2024 MCV (RBC) [Entitic vol] 72.5 fL Low 80-94 [facility] Mean corpuscular hemoglobin (MCH) determinationOrdered By: Amber Cat on 12-16-2024 MCH (RBC) [Entitic mass] 22.9 pg Low 27.0-32.0 [facility] Monocyte percentageOrdered B y: Amber Cat on 12-16-2024 Monocytes/100 WBC (Bld) 5.0 % 0-10 [facility] Neutrophil percentageOrdered By: Amber Cat on 12-16-2024 Neutrophils/100 WBC (Bld) 86.8 % High 47-70 [facility] Platelet countOrdered By: Marielena Cat on 12-16-2024 Platelets (Bld) [#/Vol] 203 10*3/uL 150-450 [facility] Potassium measurementOrdered By: Amber Cat on 12-16-2024 Potassium [Moles/Vol] 4.0 mmol/L 3.5-5.1 [facility] RBC Auto (Bld) [#/Vol]Ordere d By: Amber Cat on 12-16-2024 RBC (Bld) [#/Vol] 4.77 10*6/uL 4.6-6.2 [facility] Serum or plasma calcium deangleo urement (mass/volume)Ordered By: Amber Cat on 12-16-2024 Calcium [Mass/Vol] 9.0 mg/dL 8.5-10.1 [facility] Serum or plasma creatinine m easurement (mass/volume)Ordered By: Amber Cat on 12-16-2024 Creatinine [Mass/Vol] 1.11 mg/dL 0.70-1.30 [facility] Serum or plasma urea nitroge n measurement (mass/volume)Ordered By: Amber Cat on 12-16-2024 Urea nitrogen [Mass/Vol] 20 mg/dL High 7-18 [facility] Sodium levelOrdered By: Amber Cat on 12-16-2024 Sodium [Moles/Vol] 137 mmol/L 136-145 [facility] White blood cell (WBC) count Ordered By: Amber Cat on 12-16-2024 WBC (Bld) [#/Vol] 6.3 10*3/uL 4.4-11.0 [facility] Bedside Glucoseon 12-15-2024 FINGERSTICK GLU 254 mg/dL High 74-106 [facility] Comment on above: Result Comment: EMERALD STOCK OF PATIENT CARE PER NURSING PROTOCOL Performed By: #### L 501.080 ####[facility] [address] [place], [address] FINGERSTICK GLU 269 mg/dL High 74-106 [facility] Comment on above: Result Comment: EMERALD GEMENT OF PATIENT CARE PER NURSING PROTOCOL Performed By: #### L 501.080 ####[facility] [address] [place], [address] FINGERSTICK GLU 205 mg/dL High 74-106 [facility] Comment on above: Result Comment: EMERALD GEMENT OF PATIENT CARE PER NURSING PROTOCOL Performed By: #### L 501.080 ####[facility] [address] [place], [address] FINGERSTICK GLU 168 mg/dL High 74-106 [facility] Comment on above: Result Comment: EMERALD GEMENT OF PATIENT CARE PER NURSING PROTOCOL Performed By: #### L 501.080 ####[facility] [address] [place], [address] Bilirubin, totalOrdered By: Sayra Fuentes on 12-15-2024 Bilirubin [Mass/Vol] 0.40 mg/dL 0.20-1.00 [facility] CBC W/Diff, Automatedon 02-0 Absolute Lymph 0.50 X10 3/uL Low 0.83-4.51 [facility] Comment on above: Performed By: #### L 500.4050, L501.5200, L100.0100 ####[facility] [address] [place], [address] Absolute Neut 2.6 X10 3/uL Normal 2.0-7.7 [facility] Comment on above: Performed By: #### L 500.4050, L501.5200, L100.0100 ####[facility] [address] [place], [address] Basophils/100 WBC (Bld) 0.9 % Normal 0-1 [facility] Comment on above: Performed By: #### L 500.4050, L501.5200, L100.0100 ####[facility] [address] [place], [address] Eosinophils/100 WBC (Bld) 0.3 % Normal 0-5 [facility] Comment on above: Performed By: #### L 500.4050, L501.5200, L100.0100 ####[facility] [address] [place], [address] Erythrocyte distribution width (RBC) [Ratio] 19.4 % High 11.6-14.6 [facility] Comment on above: Performed By: #### L 500.4050, L501.5200, L100.0100 ####[facility] [address] [place], [address] Hematocrit (Bld) [Volume fraction] 38.8 % Low 40-54 [facility] Comment on above: Performed By: #### L 500.4050, L501.5200, L100.0100 ####[facility] [address] [place], [address] Hemoglobin (Bld) [Mass/Vol] 12.5 g/dL Low 13.0-16.5 [facility] Comment on above: Performed By: #### L 500.4050, L501.5200, L100.0100 ####[facility] [address] [place], [address] IG% 4.000 High 0.0-0.9 [facility] Comment on above: Result Comment: IG% - Immature Granulocytes (promyelocytes, myelocytes andmetamyelocytes) > 1% indicates that a LEFT SHIFT is Present. Performed By: #### L 500.4050, L501.5200, L100.0100 ####[facility] [address] [place], [address] Lymphocytes/100 WBC (Bld) 15.2 % Low 19-41 [facility] Comment on above: Performed By: #### L 500.4050, L501.5200, L100.0100 ####[facility] [address] [place], [address] MCH (RBC) [Entitic mass] 23.1 pg Low 27.0-32.0 [facility] Comment on above: Performed By: #### L 500.4050, L501.5200, L100.0100 ####[facility] [address] [place], [address] MCHC (RBC) [Mass/Vol] 32.2 g/dL Normal 32-36 [facility] Comment on above: Performed By: #### L 500.4050, L501.5200, L100.0100 ####[facility] [address] [place], [address] MCV (RBC) [Entitic vol] 71.7 fL Low 80-94 [facility] Comment on above: Performed By: #### L 500.4050, L501.5200, L100.0100 ####[facility] [address] [place], [address] Monocytes/100 WBC (Bld) 2.1 % Normal 0-10 [facility] Comment on above: Performed By: #### L 500.4050, L501.5200, L100.0100 ####[facility] [address] [place], [address] Neutrophils/100 WBC (Bld) 77.5 % High 47-70 [facility] Comment on above: Performed By: #### L 500.4050, L501.5200, L100.0100 ####[facility] [address] [place], [address] Nucleated RBC (Bld) [#/Vol] 0 10*3/uL Normal 0-5 [facility] Comment on above: Performed By: #### L 500.4050, L501.5200, L100.0100 ####[facility] [address] [place], [address] Platelet mean volume (Bld) [Entitic vol] 9.1 fL Normal 6.2-12.0 [facility] Comment on above: Performed By: #### L 500.4050, L501.5200, L100.0100 ####[facility] [address] [place], [address] Platelets (Bld) [#/Vol] 205 10*3/uL Normal 150-450 [facility] Comment on above: Performed By: #### L 500.4050, L501.5200, L100.0100 ####[facility] [address] [place], [address] RBC (Bld) [#/Vol] 5.41 10*6/uL Normal 4.6-6.2 [facility] Comment on above: Performed By: #### L 500.4050, L501.5200, L100.0100 ####[facility] [address] [place], [address] RDW SD 49.1 fl High 35.1-43.9 [facility] Comment on above: Performed By: #### L 500.4050, L501.5200, L100.0100 ####[facility] [address] [place], [address] WBC (Bld) [#/Vol] 3.3 10*3/uL Low 4.4-11.0 [facility] Comment on above: Performed By: #### L 500.4050, L501.5200, L100.0100 ####[facility] [address] [place], [address] Comprehensive Metabolic Prof ilon 12-15-2024 Albumin [Mass/Vol] 2.8 g/dL Low 3.2-5.0 [facility] Comment on above: Performed By: #### L 500.4050, L501.5200, L100.0100 ####[facility] [address] [place], [address] Albumin/Globulin [Mass ratio] 0.9 {ratio} Normal 0.9-2.4 [facility] Comment on above: Performed By: #### L 500.4050, L501.5200, L100.0100 ####[facility] [facility] [address] [place], [address] ALK P 56 U/L Normal 45-117 [facility] Comment on above: Performed By: #### L 500.4050, L501.5200, L100.0100 ####[facility] [address] [place], [address] ALT [Catalytic activity/Vol] 13 U/L Low 16-61 [facility] Comment on above: Performed By: #### L 500.4050, L501.5200, L100.0100 ####[facility] [address] [place], [address] AST [Catalytic activity/Vol] 13 U/L Low 15-37 [facility] Comment on above: Performed By: #### L 500.4050, L501.5200, L100.0100 ####[facility] [address] [place], [address] Bilirubin [Mass/Vol] 0.40 mg/dL Normal 0.20-1.00 [facility] Comment on above: Result Comment: For patients on eltrombopag therapy, use of Dimension [place] TBIL is not recommended. Performed By: #### L 500.4050, L501.5200, L100.0100 ####[facility] [address] [place], [address] BUN/CRE 8.7 RATIO Low 10-20 [facility] Comment on above: Performed By: #### L 500.4050, L501.5200, L100.0100 ####[facility] [address] [place], [address] CA,Total 8.8 mg/dL Normal 8.5-10.1 [facility] Comment on above: Performed By: #### L 500.4050, L501.5200, L100.0100 ####[facility] [address] [place], [address] Chloride [Moles/Vol] 104 mmol/L Normal 98-107 [facility] Comment on above: Performed By: #### L 500.4050, L501.5200, L100.0100 ####[facility] [address] [place], [address] CO2 [Moles/Vol] 15.0 mmol/L Low 21.0-32.0 [facility] Comment on above: Performed By: #### L 500.4050, L501.5200, L100.0100 ####[facility] [address] [place], [address] Creatinine [Mass/Vol] 1.03 mg/dL Normal 0.70-1.30 [facility] Comment on above: Result Comment: The validity of the calculated GFR GFRAA in patients over70 years has not been determined. Clinical correlation isessential. Performed By: #### L 500.4050, L501.5200, L100.0100 ####[facility] [address] [place], [address] ECRCL 70.02 ml/min Normal [facility] Comment on above: Performed By: #### L 500.4050, L501.5200, L100.0100 ####[facility] [address] [place], [address] EST GFR - AA 92 mL/min Normal >60 [facility] Comment on above: Result Comment: Afri can [place]ral[place] GFR Calc Performed By: #### L 500.4050, L501.5200, L100.0100 ####[facility] [address] [place], [address] GAP 13 Normal 5-15 [facility] Comment on above: Performed By: #### L 500.4050, L501.5200, L100.0100 ####[facility] [address] [place], [address] GFR/1.73 sq M.predicted among non-blacks MDRD (S/P/Bld) [Vol rate/Area] 76 mL/min/{1.73_m2} Normal >60 [facility] Comment on above: Result Comment: Non- GFR Calc Performed By: #### L 500.4050, L501.5200, L100.0100 ####[facility] [address] [place], [address] Globulin (S) [Mass/Vol] 3.1 g/dL Normal 2.2-4.2 [facility] Comment on above: Performed By: #### L 500.4050, L501.5200, L100.0100 ####[facility] [address] [place], [address] Glucose [Mass/Vol] 174 mg/dL High 74-106 [facility] Comment on above: Result Comment: Fast ing Glucose result greater than or equal to 126 mg/dLsuggests DIABETES MELLITUS per A.D.A. criteria. Performed By: #### L 500.4050, L501.5200, L100.0100 ####[facility] [address] [place], [address] Potassium [Moles/Vol] 4.0 mmol/L Normal 3.5-5.1 [facility] Comment on above: Performed By: #### L 500.4050, L501.5200, L100.0100 ####[facility] [address] [place], [address] Sodium [Moles/Vol] 132 mmol/L Low 136-145 [facility] Comment on above: Performed By: #### L 500.4050, L501.5200, L100.0100 ####[facility] [address] [place], [address] T PROT 5.9 g/dL Low 6.4-8.2 [facility] Comment on above: Performed By: #### L 500.4050, L501.5200, L100.0100 ####[facility] [address] [place], [address] Urea nitrogen [Mass/Vol] 9 mg/dL Normal 7-18 [facility] Comment on above: Performed By: #### L 500.4050, L501.5200, L100.0100 ####[facility] [address] [place], [address] Legionella Antigen Urineon 0 12-15-2024 LEGU Normal [facility] Comment on above: Performed By: #### M 300.4500, M300.4600 ####[facility] [address] [place], [address] Magnesiumon 12-15-2024 Magnesium [Mass/Vol] 2.5 mg/dL Normal 1.6-2.6 [facility] Comment on above: Performed By: #### L 500.4050, L501.5200, L100.0100 ####[facility] [address] [place], [address] Magnesium measurementOrdered By: Sayra Fuentes on 12-15-2024 Magnesium [Mass/Vol] 2.5 mg/dL 1.6-2.6 [facility] No Panel InformationOrdered By: Sayra Fuentes on 12-15-2024 13 U/L Low 15-37 [facility] Procalcitoninon 12-15-2024 Procalcitonin 0.16 ng/mL High 0.00-0.09 [facility] Comment on above: Result Comment: A pr ocalcitonin (PCT) level above 2.0 ng/mL on the first day of ICU admission is associated with a high risk for progression to severe sepsis and/or septic shock. A PCT level below 0.5 ng/mL on the first day of ICU admission is associated with a low risk for progression to severe and/or septic shock. Note: Concentrations <0.5 ng/mL do not exclude an infection on account of localized infections (without systemic signs) which can be associated with such low concentrations, or a systemic infection in its initial stages (<6 hours). Furthermore, increased procalcitonin can occur without infection. PCT concentrations between 0.5 and 2.0 ng/mL should be interpreted taking into account the patient's history. It is recommended to retest PCT within 6-24 hours if any concentrations <2 ng/mL are obtained. Performed By: #### L 501.5200, L509.7000 ####[facility] [address] [facility] [place], [place], [address] RESPIRATORY PANEL MOLECULARo n 12-15-2024 RP PANEL Normal [facility] Comment on above: Performed By: #### M 100.638 ####[facility] [address] [place], [place], [address] Serum globulin measurementOr dered By: Sayra Fuentes on 12-15-2024 Globulin (S) [Mass/Vol] 3.1 g/dL 2.2-4.2 [facility] Serum or plasma alanine kong otransferase (ALT) measurementOrdered By: Sayra Alfredo 12-15-2024 ALT [Catalytic activity/Vol] 13 U/L Low 16-61 [facility] Serum or plasma albumin deangelo urement (mass/volume)Ordered By: Sayra Alfredo 12-15-2024 Albumin [Mass/Vol] 2.8 g/dL Low 3.2-5.0 [facility] Serum or plasma alkaline alie sphatase measurementOrdered By: Sayra Alfredo 12-15-2024 ALP [Catalytic activity/Vol] 56 U/L 45-117 [facility] Serum procalcitonin measurem entOrdered By: Sayra Fuentes on 12-15-2024 Procalcitonin [Mass/Vol] 0.16 ng/mL High 0.00-0.09 [facility] Strep pneumoniae Antig(UR,CS F)on 12-15-2024 STPAG Normal [facility] Comment on above: Performed By: #### M 300.4500, M300.4600 ####[facility] [address] [place], [address] Total proteinOrdered By: Aut kaushik Fuentes on 12-15-2024 Protein [Mass/Vol] 5.9 g/dL Low 6.4-8.2 [facility] 12 Lead EKGon 12-14-2024 12 Lead EKG Normal [facility] Basic Metabolic Profile (BMP )on 12-14-2024 BUN/CRE 8.0 RATIO Low 10-20 [facility] Comment on above: Order Comment: 'TROP ' Serial specimen #1, #2 or #3: 1 Performed By: #### L 501.4020, L500.2500 ####[facility] [address] [place], [address] CA,Total 8.4 mg/dL Low 8.5-10.1 [facility] Comment on above: Order Comment: 'TROP ' Serial specimen #1, #2 or #3: 1 Performed By: #### L 501.4020, L500.2500 ####[facility] [address] [place], [address] Chloride [Moles/Vol] 102 mmol/L Normal 98-107 [facility] Comment on above: Order Comment: 'TROP ' Serial specimen #1, #2 or #3: 1 Performed By: #### L 501.4020, L500.2500 ####[facility] [address] [place], [address] CO2 [Moles/Vol] 19.0 mmol/L Low 21.0-32.0 [facility] Comment on above: Order Comment: 'TROP ' Serial specimen #1, #2 or #3: 1 Performed By: #### L 501.4020, L500.2500 ####[facility] [address] [place], [address] Creatinine [Mass/Vol] 1.00 mg/dL Normal 0.70-1.30 [facility] Comment on above: Order Comment: 'TROP ' Serial specimen #1, #2 or #3: 1 Result Comment: The validity of the calculated GFR GFRAA in patients over70 years has not been determined. Clinical correlation isessential. Performed By: #### L 501.4020, L500.2500 ####[facility] [address] [place], [address] ECRCL 72.58 ml/min Normal [facility] Comment on above: Order Comment: 'TROP ' Serial specimen #1, #2 or #3: 1 Performed By: #### L 501.4020, L500.2500 ####[facility] [address] [place], [address] EST GFR - AA 95 mL/min Normal >60 [facility] Comment on above: Order Comment: 'TROP ' Serial specimen #1, #2 or #3: 1 Result Comment: Afri can [place] GFR Calc Performed By: #### L 501.4020, L500.2500 ####[facility] [address] [place], [address] GAP 10 Normal 5-15 [facility] Comment on above: Order Comment: 'TROP ' Serial specimen #1, #2 or #3: 1 Performed By: #### L 501.4020, L500.2500 ####[facility] [address] [place], [address] GFR/1.73 sq M.predicted among non-blacks MDRD (S/P/Bld) [Vol rate/Area] 78 mL/min/{1.73_m2} Normal >60 [facility] Comment on above: Order Comment: 'TROP ' Serial specimen #1, #2 or #3: 1 Result Comment: Non- GFR Calc Performed By: #### L 501.4020, L500.2500 ####[facility] [address] [place], [address] Glucose [Mass/Vol] 99 mg/dL Normal 74-106 [facility] Comment on above: Order Comment: 'TROP ' Serial specimen #1, #2 or #3: 1 Performed By: #### L 501.4020, L500.2500 ####[facility] [address] [place], [address] Potassium [Moles/Vol] 3.1 mmol/L Low 3.5-5.1 [facility] Comment on above: Order Comment: 'TROP ' Serial specimen #1, #2 or #3: 1 Performed By: #### L 501.4020, L500.2500 ####[facility] [address] [place], [address] Sodium [Moles/Vol] 130 mmol/L Low 136-145 [facility] Comment on above: Order Comment: 'TROP ' Serial specimen #1, #2 or #3: 1 Performed By: #### L 501.4020, L500.2500 ####[facility] [address] [place], [address] Urea nitrogen [Mass/Vol] 8 mg/dL Normal 7-18 [facility] Comment on above: Order Comment: 'TROP ' Serial specimen #1, #2 or #3: 1 Performed By: #### L 501.4020, L500.2500 ####[facility] [address] [place], [address] Bedside Glucoseon 12-14-2024 FINGERSTICK GLU 118 mg/dL High 74-106 [facility] Comment on above: Result Comment: EMERALD STOCK OF PATIENT CARE PER NURSING PROTOCOL Performed By: #### L 501.080 ####[facility] [address] [place], [address] CBC W/Diff, Automatedon 02-0 -2024 Absolute Neut Normal 2.0-7.7 [facility] Comment on above: Result Comment: Canc elled via OM: Patient Ill Performed By: #### L 100.0100, L500.4050 ####[facility] [address] [place], [address] HCT Normal 40-54 [facility] Comment on above: Result Comment: Canc elled via OM: Patient Ill Performed By: #### L 100.0100, L500.4050 ####[facility] [address] [place], [address] HGB Normal 13.0-16.5 [facility] Comment on above: Result Comment: Canc elled via OM: Patient Ill Performed By: #### L 100.0100, L500.4050 ####[facility] [address] [place], [address] MCH Normal 27.0-32.0 [facility] Comment on above: Result Comment: Canc elled via OM: Patient Ill Performed By: #### L 100.0100, L500.4050 ####[facility] [address] [place], [address] MCHC Normal 32-36 [facility] Comment on above: Result Comment: Canc elled via OM: Patient Ill Performed By: #### L 100.0100, L500.4050 ####[facility] [address] [place], [address] MCV Normal 80-94 [facility] Comment on above: Result Comment: Canc elled via OM: Patient Ill Performed By: #### L 100.0100, L500.4050 ####[facility] [address] [place], [address] NEUT% Normal 47-70 [facility] Comment on above: Result Comment: Canc elled via OM: Patient Ill Performed By: #### L 100.0100, L500.4050 ####[facility] [address] [place], [address] PLT Normal 150-450 [facility] Comment on above: Result Comment: Canc elled via OM: Patient Ill Performed By: #### L 100.0100, L500.4050 ####[facility] [address] [place], [address] RBC Normal 4.6-6.2 [facility] Comment on above: Result Comment: Canc elled via OM: Patient Ill Performed By: #### L 100.0100, L500.4050 ####[facility] [address] [place], [address] RDW CV Normal 11.6-14.6 [facility] Comment on above: Result Comment: Canc elled via OM: Patient Ill Performed By: #### L 100.0100, L500.4050 ####[facility] [address] [place], [address] RDW SD Normal 35.1-43.9 [facility] Comment on above: Result Comment: Canc elled via OM: Patient Ill Performed By: #### L 100.0100, L500.4050 ####[facility] [address] [place], [address] WBC Normal 4.4-11.0 [facility] Comment on above: Result Comment: Canc elled via OM: Patient Ill Performed By: #### L 100.0100, L500.4050 ####[facility] [address] [place], [address] Chest 1 View (Portable)on Chest 1 View (Portable) Normal [facility] Comprehensive Metabolic Prof ilon 12-14-2024 ALB Normal 3.2-5.0 [facility] Comment on above: Result Comment: Canc elled via OM: Patient Ill Performed By: #### L 100.0100, L500.4050 ####[facility] [address] [place], [address] ALK P Normal 45-117 [facility] Comment on above: Result Comment: Canc elled via OM: Patient Ill Performed By: #### L 100.0100, L500.4050 ####[facility] [address] [place], [address] ALT Normal 16-61 [facility] Comment on above: Result Comment: Canc elled via OM: Patient Ill Performed By: #### L 100.0100, L500.4050 ####[facility] [address] [place], [address] AST Normal 15-37 [facility] Comment on above: Result Comment: Canc elled via OM: Patient Ill Performed By: #### L 100.0100, L500.4050 ####[facility] [address] [place], [address] BUN Normal 7-18 [facility] Comment on above: Result Comment: Canc elled via OM: Patient Ill Performed By: #### L 100.0100, L500.4050 ####[facility] [address] [place], [address] BUN/CRE Normal 10-20 [facility] Comment on above: Result Comment: Canc elled via OM: Patient Ill Performed By: #### L 100.0100, L500.4050 ####[facility] [address] [place], [address] CA,Total Normal 8.5-10.1 [facility] Comment on above: Result Comment: Canc elled via OM: Patient Ill Performed By: #### L 100.0100, L500.4050 ####[facility] [address] [place], [address] CL Normal 98-107 [facility] Comment on above: Result Comment: Canc elled via OM: Patient Ill Performed By: #### L 100.0100, L500.4050 ####[facility] [address] [place], [address] CO2 Normal 21.0-32.0 [facility] Comment on above: Result Comment: Canc elled via OM: Patient Ill Performed By: #### L 100.0100, L500.4050 ####[facility] [address] [place], [address] CREAT,SERUM Normal 0.70-1.30 [facility] Comment on above: Result Comment: Canc elled via OM: Patient Ill Performed By: #### L 100.0100, L500.4050 ####[facility] [address] [place], [address] EST GFR Normal >60 [facility] Comment on above: Result Comment: Canc elled via OM: Patient Ill Performed By: #### L 100.0100, L500.4050 ####[facility] [address] [place], [address] EST GFR - AA Normal >60 [facility] Comment on above: Result Comment: Canc elled via OM: Patient Ill Performed By: #### L 100.0100, L500.4050 ####[facility] [address] [place], [address] GAP Normal 5-15 [facility] Comment on above: Result Comment: Canc elled via OM: Patient Ill Performed By: #### L 100.0100, L500.4050 ####[facility] [address] [place], [address] GLU Normal 74-106 [facility] Comment on above: Result Comment: Canc elled via OM: Patient Ill Performed By: #### L 100.0100, L500.4050 ####[facility] [address] [place], [address] Potassium Normal 3.5-5.1 [facility] Comment on above: Result Comment: Canc elled via OM: Patient Ill Performed By: #### L 100.0100, L500.4050 ####[facility] [address] [place], [address] T BILI Normal 0.20-1.00 [facility] Comment on above: Result Comment: Canc elled via OM: Patient Ill Performed By: #### L 100.0100, L500.4050 ####[facility] [address] [place], [address] T PROT Normal 6.4-8.2 [facility] Comment on above: Result Comment: Canc elled via OM: Patient Ill Performed By: #### L 100.0100, L500.4050 ####[facility] [address] [place], [address] Comprehensive Metabolic Profil Normal 136-145 [facility] Comment on above: Result Comment: Canc elled via OM: Patient Ill Performed By: #### L 100.0100, L500.4050 ####[facility] [address] [place], [address] Emergency Department Summary on 12-14-2024 Emergency Department Summary Normal [facility] Gram stainOrdered By: Sayra White on 12-14-2024 Microscopic observation Gram stain Nom (Unsp spec) [facility] H AND P Exam - Hospitaliston 12-14-2024 H&P Exam - Hospitalist Normal [facility] Influenza virus A and B and SARS-CoV-2 (COVID-19) and Respiratory syncytial virus RNAOrdered By: Mahesh Menon on 12-14-2024 SARS-CoV-2 (COVID-19) RNA DAVID+probe Ql (Unsp spec) [facility] L501.4020on 12-14-2024 TROPONIN-I HS 7 pg/mL Normal 3.0-78.0 [facility] Comment on above: Order Comment: 'TROP ' Serial specimen #1, #2 or #3: 1 Result Comment: Celina parker Note: New Test Units and Gender Specific Reference Ranges. For more information see Policy Stat Procedure [place] High Sensitivity Troponin (TNIH) and attachments. Performed By: #### L 501.4020, L500.2500 ####[facility] [address] [place], [address] M100.678on 12-14-2024 M100.678 Pending SARS-CoV-2 (COVID 19) Negative INFLUENZA A Negative INFLUENZA B Negative RSV PCR Negative Normal [facility] Comment on above: Performed By: #### M 100.678 ####[facility] [address] [place], [address] Magnesiumon 12-14-2024 Magnesium [Mass/Vol] 1.5 mg/dL Low 1.6-2.6 [facility] Comment on above: Order Comment: Comme nts: may add to ED labs Performed By: #### L 501.5200, L509.7000 ####[facility] [address] [place], [address] Microbial respiratory cultur eOrdered By: Sayra Fuentes on 12-14-2024 Microorganism identified Cx Nom (Unsp spec) [facility] Respiratory pathogens detect ion panel by molecular detection methodOrdered By: Sayra Fuentes on 12-14-2024 Respiratory pathogens DNA and RNA panel DAVID+probe (Resp) [facility] Troponin IOrdered By: Mahesh webb on 12-14-2024 Troponin I 7 pg/mL 3.0-78.0 [facility] Urine Legionella pneumophila antigen detectionOrdered By: Sayra Fuentes on 12-14-2024 L. pneumophila Ag Ql (U) [facility] 36on 12-12-2024 36 Being addressed in another encounter [place] [address] Chambers s office and they will be faxing over this recent report, [place] [address] Name of caller: Sari tee Contact phone number: [phone] Relationship to Patient: [facility] Provider: DO Dick Practice: [facility] Chief Complaint/Reason for Call: Nessa would like a call to discuss patients information Best time of day caller can be reached: PM Patient advised that office/PCP has 24-48 business hours to return their call: Yes [facility] [address] Smart office to return call to the office. [facility] 36 Spoke with patient jeanine chowdary and she said they just found out he has 2 small lesions on his bowels and she is not happy with that gastro Dr Friend they want him to go to [place] and she said she can't drive to [place] , that she wants him referred back to Dr Osei in [place] and wants your opinion on this she says she is also waiting on a call back from his cancer doctor as well. [facility] 36 S: The is raulito ng the [facility] about a fever despite antibiotics. B: He was seen on December 06 for sinusitis. Augmentiin was stopped and he was started on Levaquin. A: He has only three pills left and there is no improvement. He has a temperature of 100.1 F with dry heaves intermittently. This fever is NOT new - it is just not resolving with the antibiotic. No dyspnea or wheezing. He is eating (small amounts) and drinking adequate amounts; he is urinating regularly. He has occasional lightheadedness/dizziness but this is related to his lung cancer. He has lung cancer and a history of COPD. He is not using oxygen anymore. He is getting Keyturda every three weeks; he has missed doses and is scheduled for another injection on . He will call the oncologist again. R: Concerned with ongoing temperature despite the antibiotics with his chemotherapy therapy. Discussed with the office; they would like a high priority message so this can be discussed with Dr. Jennings. Reason for Disposition Taking antibiotic > 48 hours (2 days) and fever persists Protocols used: Sinus Infection on Antibiotic Follow-up [id number] [facility] CBC W/Diff, Automatedon 11-10 Absolute Neut Normal 2.0-7.7 [facility] Comment on above: Result Comment: PT C ANCELLED FOR THE DAY PER SCHEDULE Performed By: #### L 100.0100, L500.4050 ####[facility] [address] [place], [address] HCT Normal 40-54 [facility] Comment on above: Result Comment: PT C ANCELLED FOR THE DAY PER SCHEDULE Performed By: #### L 100.0100, L500.4050 ####[facility] [address] [place], [address] HGB Normal 13.0-16.5 [facility] Comment on above: Result Comment: PT C ANCELLED FOR THE DAY PER SCHEDULE Performed By: #### L 100.0100, L500.4050 ####[facility] [address] [place], [address] MCH Normal 27.0-32.0 [facility] Comment on above: Result Comment: PT C ANCELLED FOR THE DAY PER SCHEDULE Performed By: #### L 100.0100, L500.4050 ####[facility] [address] [place], [address] MCHC Normal 32-36 [facility] Comment on above: Result Comment: PT C ANCELLED FOR THE DAY PER SCHEDULE Performed By: #### L 100.0100, L500.4050 ####[facility] [address] [place], [address] MCV Normal 80-94 [facility] Comment on above: Result Comment: PT C ANCELLED FOR THE DAY PER SCHEDULE Performed By: #### L 100.0100, L500.4050 ####[facility] [address] [place], [address] NEUT% Normal 47-70 [facility] Comment on above: Result Comment: PT C ANCELLED FOR THE DAY PER SCHEDULE Performed By: #### L 100.0100, L500.4050 ####[facility] [address] [place], [address] PLT Normal 150-450 [facility] Comment on above: Result Comment: PT C ANCELLED FOR THE DAY PER SCHEDULE Performed By: #### L 100.0100, L500.4050 ####[facility] [address] [place], [address] RBC Normal 4.6-6.2 [facility] Comment on above: Result Comment: PT C ANCELLED FOR THE DAY PER SCHEDULE Performed By: #### L 100.0100, L500.4050 ####[facility] [address] [place], [address] RDW CV Normal 11.6-14.6 [facility] Comment on above: Result Comment: PT C ANCELLED FOR THE DAY PER SCHEDULE Performed By: #### L 100.0100, L500.4050 ####[facility] [address] [place], [address] RDW SD Normal 35.1-43.9 [facility] Comment on above: Result Comment: PT C ANCELLED FOR THE DAY PER SCHEDULE Performed By: #### L 100.0100, L500.4050 ####[facility] [address] [place], [address] WBC Normal 4.4-11.0 [facility] Comment on above: Result Comment: PT C ANCELLED FOR THE DAY PER SCHEDULE Performed By: #### L 100.0100, L500.4050 ####[facility] [address] [place], [address] Comprehensive Metabolic Prof ilon 12-07-2024 ALB Normal 3.2-5.0 [facility] Comment on above: Result Comment: PT C ANCELLED FOR THE DAY PER SCHEDULE Performed By: #### L 100.0100, L500.4050 ####[facility] [address] [place], [address] ALK P Normal 45-117 [facility] Comment on above: Result Comment: PT C ANCELLED FOR THE DAY PER SCHEDULE Performed By: #### L 100.0100, L500.4050 ####[facility] [address] [place], [address] ALT Normal 16-61 [facility] Comment on above: Result Comment: PT C ANCELLED FOR THE DAY PER SCHEDULE Performed By: #### L 100.0100, L500.4050 ####[facility] [address] [place], [address] AST Normal 15-37 [facility] Comment on above: Result Comment: PT C ANCELLED FOR THE DAY PER SCHEDULE Performed By: #### L 100.0100, L500.4050 ####[facility] [address] [place], [address] BUN Normal 7-18 [facility] Comment on above: Result Comment: PT C ANCELLED FOR THE DAY PER SCHEDULE Performed By: #### L 100.0100, L500.4050 ####[facility] [address] [place], [address] BUN/CRE Normal 10-20 [facility] Comment on above: Result Comment: PT C ANCELLED FOR THE DAY PER SCHEDULE Performed By: #### L 100.0100, L500.4050 ####[facility] [address] [place], [address] CA,Total Normal 8.5-10.1 [facility] Comment on above: Result Comment: PT C ANCELLED FOR THE DAY PER SCHEDULE Performed By: #### L 100.0100, L500.4050 ####[facility] [address] [place], [address] CL Normal 98-107 [facility] Comment on above: Result Comment: PT C ANCELLED FOR THE DAY PER SCHEDULE Performed By: #### L 100.0100, L500.4050 ####[facility] [address] [place], [address] CO2 Normal 21.0-32.0 [facility] Comment on above: Result Comment: PT C ANCELLED FOR THE DAY PER SCHEDULE Performed By: #### L 100.0100, L500.4050 ####[facility] [address] [place], [address] CREAT,SERUM Normal 0.70-1.30 [facility] Comment on above: Result Comment: PT C ANCELLED FOR THE DAY PER SCHEDULE Performed By: #### L 100.0100, L500.4050 ####[facility] [address] [place], [address] EST GFR Normal >60 [facility] Comment on above: Result Comment: PT C ANCELLED FOR THE DAY PER SCHEDULE Performed By: #### L 100.0100, L500.4050 ####[facility] [address] [place], [address] EST GFR - AA Normal >60 [facility] Comment on above: Result Comment: PT C ANCELLED FOR THE DAY PER SCHEDULE Performed By: #### L 100.0100, L500.4050 ####[facility] [address] [place], [address] GAP Normal 5-15 [facility] Comment on above: Result Comment: PT C ANCELLED FOR THE DAY PER SCHEDULE Performed By: #### L 100.0100, L500.4050 ####[facility] [address] [place], [address] GLU Normal 74-106 [facility] Comment on above: Result Comment: PT C ANCELLED FOR THE DAY PER SCHEDULE Performed By: #### L 100.0100, L500.4050 ####[facility] [address] [place], [address] Potassium Normal 3.5-5.1 [facility] Comment on above: Result Comment: PT C ANCELLED FOR THE DAY PER SCHEDULE Performed By: #### L 100.0100, L500.4050 ####[facility] [address] [place], [address] T BILI Normal 0.20-1.00 [facility] Comment on above: Result Comment: PT C ANCELLED FOR THE DAY PER SCHEDULE Performed By: #### L 100.0100, L500.4050 ####[facility] [address] [place], [address] T PROT Normal 6.4-8.2 [facility] Comment on above: Result Comment: PT C ANCELLED FOR THE DAY PER SCHEDULE Performed By: #### L 100.0100, L500.4050 ####[facility] [address] [place], [address] Comprehensive Metabolic Profil Normal 136-145 [facility] Comment on above: Result Comment: PT C ANCELLED FOR THE DAY PER SCHEDULE Performed By: #### L 100.0100, L500.4050 ####[facility] [address] [place], [address] 36on 12-06-2024 36 S: Patient's nanci guadalupe with [facility] nurse regarding sinusitis. B: Onset of symptoms/concern: today A: Patient not present at time of call, Haylie states he still has a fever of 102 (TA), sinus issues, congestion, got antibiotics last Thursday from urgent care on Thursday but it's not helping, requests same day. R: Same day [place] [address] Jennings, insurance coverage verified. Reason for Disposition Taking antibiotic > 48 hours (2 days) and fever persists Protocols used: Sinus Infection on Antibiotic [facility] Follow-up visit [id number] Mirna Arshad 1955 M Date Provider Department Center 12/06/2024 [id number] BOLES [facility] Family History Problem Relation Age of Onset Coronary artery disease Mother Comments: CABG Coronary artery disease Sister Comments: CABG Stroke Mother Comments: age 77 Lung cancer Mother No Known Problems Sister No Known Problems Brother No Known Problems Sister No Known Problems Sister Diabetes Sister Coronary artery disease Father Comments: age 50 [place] - smoker Coronary artery disease Brother Comments: age 47 [place] Family Status - Relation Status Age at Mother 77 Sister Alive Sister Alive Brother Alive Sister Alive Sister Alive Father 50 Brother 47 Level of Service:[address] [place] OFFICE/OUTPATIENT ESTABLISHED LOW MDM 20 MIN Reason for Visit and Comments: Nasal Congestion [435487] - Coughing up green and brown mucus Head congestion Diarrhea [35] Other [0] - Seen at Urgent Care Thursday, Flu and COVID test both NEGATIVE Normal [facility] Progress Noteon 12-06-2024 Progress Note [facility] - [address] [facility] [address] Visit type: Established Patient Reason for Visit: Nasal Congestion (Coughing up green and brown mucus /Head congestion ), Diarrhea, and Other (Seen at Urgent Care Thursday, Flu and COVID test both NEGATIVE ) Assessment / Plan: Kenn was seen today for nasal congestion, diarrhea and other. Diagnoses and all orders for this visit: Acute non-recurrent frontal sinusitis (Primary) Adverse effect of drug, subsequent encounter Comments: Stop Augmentin, discussed rash with oncology for possible med options. 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 Other orders - levoFLOXacin (Levaquin) 500 MG tablet; Take 1 tablet (500 mg) by mouth daily for 10 days. - apixaban (Eliquis) 2.5 MG tablet; One q day Subjective: Patient ID: Kenn Arshad is a 69 y.o. male. HPI patient with history of COPD and metastatic lung cancer to the brain on Keytruda for many years presents with a week of persistent nasal rhinorrhea that is thick and green despite being on Augmentin for the last 4 days. Having some diarrhea with that med as well. Negative COVID exam at [facility] few days ago. Denies chest pain or change in shortness of breath. No confusion. No pleurisy or abdominal pain. Did have some nausea vomiting and diarrhea. Drinking lots of liquids and urinating well. Review of Systems severely itchy rash is recurring off oral Decadron that he was given for brain metastasis and intracranial swelling. Rash of his chest is worsening as he still gets Keytruda every 3 weeks. Will be seeing his oncologist tomorrow for routine checkup and lab work. Did see human services program specialist who confirmed he thinks the rash is from his Keytruda No Known Allergies Current Outpatient Medications on File Prior to Visit Medication Sig Dispense Refill amLODIPine (Norvasc) 10 MG tablet Take 1 tablet (10 mg) by mouth daily for 180 doses. 90 tablet 1 carvedilol (Coreg) 25 MG tablet Take 1 tablet (25 mg) by mouth 2 times daily (with meals). 180 tablet 1 hydrALAZINE (Apresoline) 50 MG tablet Take 1 tablet (50 mg) by mouth 2 times daily. 180 tablet 1 ipratropium-albuterol (Duo-Neb) 0.5-2.5 mg/3 mL nebulizer solution Inhale 3 mL. Lancets (Vision CriticalTouch Delica Plus [id number]) misc nitroglycerin (Nitrostat) 0.[address] 1 tablet (0.4 mg) under the tongue every 5 minutes as needed for chest pain. 90 tablet 0 omeprazole (PriLOSEC) [address] capsule Take 1 capsule (20 mg) by mouth Daily as needed (reflux). 90 capsule 1 Vision CriticalTouch Ultra test strip pembrolizumab (Keytruda) 100 MG/4ML chemo injection Infuse 200 mg into a venous catheter. prednisoLONE acetate (Pred-Forte) 1 % ophthalmic suspension Administer 1 drop into the left eye 2 times daily. Refresh Optive Advanced PF 0.5-1-0.5 % solution Administer 1 drop into both eyes 2 times daily. rosuvastatin (Crestor) 40 MG tablet TAKE 1 TABLET BY MOUTH EVERY DAY 90 tablet 1 [DISCONTINUED] amoxicillin-clavulanate (Augmentin) 875-125 MG tablet Take 1 tablet by mouth every 12 hours. [DISCONTINUED] apixaban (Eliquis) 5 MG tablet Take 0.5 tablets (2.5 mg) by mouth 2 times daily. 180 tablet 1 [DISCONTINUED] apixaban (Eliquis) 5 MG tablet Take 0.5 tablets (2.5 mg) by mouth 2 times daily. 180 tablet 1 [DISCONTINUED] dexAMETHasone (Decadron) 1 MG tablet Take 1 mg by mouth 3 times daily. (Patient not taking: Reported on 12/06/2024) No current facility-administered medications on file prior [...] Social History Tobacco Use Smoking status: Former Current packs/day: 0.00 Average packs/day: 1.5 packs/day for 40.1 years (60.2 ttl pk-yrs) Types: Cigarettes Start date: 02/01/1981 Quit date: 03/12/2021 Years since quittin.7 Smokeless tobacco: Never Substance Use Topics Alco (more content not included)... [facility] 36on 12-05-2024 36 Medication name: api xaban (Eliquis) 5 MG tablet Medication dosage: 5 mg (Miligrams Monthly quantity needed: 180 How many day supply requestin days Medication route: oral (PO) Medication administration time(s): 2 times a day (BID) If taking medication PRN, reason for taking medication: N/A If this is a controlled substance do you receive this or any other controlled medication from any other doctor or facility: No Ordering provider: Dr. Jennings Date of last office visit: 10.20.2024 Date of next office visit: 04.20.2025 Date of last refill: (see medication tab): 05.26.2024 Updated/Validated preferred pharmacy: Yes Patient instructed to contact the pharmacy prior to picking up the medication: Yes [facility] No Panel Informationon 12-02 Negative [facility] Negative [facility] Urgent Care Visit Reporton 0 12-02-2024 Urgent Care Visit Report Normal [facility] 36on 12-01-2024 36 Noted. Normal [facility] 36 Reason for Dispositi on ? Caller has already spoken with another triager and has no further questions Protocols used: No Contact or Duplicate Contact [id number] [facility] 36 S: spoke with C nurse regarding hives B: Onset of symptoms/concern 3 days ago Decadron 1/4 of 0.5mg A: states Cancer [facility] Acevedo at [facility] hs been lowering his Decadron dose and patient has developed hives the past 3 days. Currently taking Decadron 1/4 pill of 0.5mg tablet. Patient c/o itchy hives, cough congestin with green phlegm, temp 101 today. state Benadryl does not work. Relates to taking Sariah and Tylenol at 8a today. states he is having chest pain- from the congestion and shortness of breath. Patient talking in background in full sentences during call. R: Call to office backline- advised to send message to provider and they will have provider call patient back this afternoon. advised of above from office. Advised to take another dose of Tylenol at 12n, continue fluids. Patient understands care advice. No further needs at this time. Patient instructed to call back with new or worsening symptoms. Reason for Disposition Hives have become worse and taking oral steroids (e.g., prednisone) > 24 hours Protocols used: [id number] Normal [facility] CBC W/Diff, Automatedon 11-10 Absolute Neut Normal 2.0-7.7 [facility] Comment on above: Result Comment: PT N OT SCHEDULED TODAY PER [facility] NURSE Performed By: #### L 500.4050, L100.0100 ####[facility] [address] [place], [place], [id number] HCT Normal 40-54 [facility] Comment on above: Result Comment: PT N OT SCHEDULED TODAY PER [facility] NURSE Performed By: #### L 500.4050, L100.0100 ####[facility] [address] [place], [address] HGB Normal 13.0-16.5 [facility] Comment on above: Result Comment: PT N OT SCHEDULED TODAY PER [facility] NURSE Performed By: #### L 500.4050, L100.0100 ####[facility] [address] [place], [address] MCH Normal 27.0-32.0 [facility] Comment on above: Result Comment: PT N OT SCHEDULED TODAY PER [facility] NURSE Performed By: #### L 500.4050, L100.0100 ####[facility] [address] [place], [address] MCHC Normal 32-36 [facility] Comment on above: Result Comment: PT N OT SCHEDULED TODAY PER [facility] NURSE Performed By: #### L 500.4050, L100.0100 ####[facility] [address] [place], [address] MCV Normal 80-94 [facility] Comment on above: Result Comment: PT N OT SCHEDULED TODAY PER [facility] NURSE Performed By: #### L 500.4050, L100.0100 ####[facility] [address] [place], [address] NEUT% Normal 47-70 [facility] Comment on above: Result Comment: PT N OT SCHEDULED TODAY PER [facility] NURSE Performed By: #### L 500.4050, L100.0100 ####[facility] [address] [place], [address] PLT Normal 150-450 [facility] Comment on above: Result Comment: PT N OT SCHEDULED TODAY PER [facility] NURSE Performed By: #### L 500.4050, L100.0100 ####[facility] [address] [place], [address] RBC Normal 4.6-6.2 [facility] Comment on above: Result Comment: PT N OT SCHEDULED TODAY PER [facility] NURSE Performed By: #### L 500.4050, L100.0100 ####[facility] [address] [place], [address] RDW CV Normal 11.6-14.6 [facility] Comment on above: Result Comment: PT N OT SCHEDULED TODAY PER [facility] NURSE Performed By: #### L 500.4050, L100.0100 ####[facility] [address] [place], [address] RDW SD Normal 35.1-43.9 [facility] Comment on above: Result Comment: PT N OT SCHEDULED TODAY PER [facility] NURSE Performed By: #### L 500.4050, L100.0100 ####[facility] [address] [place], [address] WBC Normal 4.4-11.0 [facility] Comment on above: Result Comment: PT N OT SCHEDULED TODAY PER [facility] NURSE Performed By: #### L 500.4050, L100.0100 ####[facility] [address] [place], [address] Comprehensive Metabolic Prof ilon 11-29-2024 ALB Normal 3.2-5.0 [facility] Comment on above: Result Comment: PT N OT SCHEDULED TODAY PER [facility] NURSE Performed By: #### L 500.4050, L100.0100 ####[facility] [address] [place], [address] ALK P Normal 45-117 [facility] Comment on above: Result Comment: PT N OT SCHEDULED TODAY PER [facility] NURSE Performed By: #### L 500.4050, L100.0100 ####[facility] [address] [place], [address] ALT Normal 16-61 [facility] Comment on above: Result Comment: PT N OT SCHEDULED TODAY PER [facility] NURSE Performed By: #### L 500.4050, L100.0100 ####[facility] [address] [place], [address] AST Normal 15-37 [facility] Comment on above: Result Comment: PT N OT SCHEDULED TODAY PER [facility] NURSE Performed By: #### L 500.4050, L100.0100 ####[facility] [address] [place], [address] BUN Normal 7-18 [facility] Comment on above: Result Comment: PT N OT SCHEDULED TODAY PER [facility] NURSE Performed By: #### L 500.4050, L100.0100 ####[facility] [address] [place], [address] BUN/CRE Normal 10-20 [facility] Comment on above: Result Comment: PT N OT SCHEDULED TODAY PER [facility] NURSE Performed By: #### L 500.4050, L100.0100 ####[facility] [address] [place], [address] CA,Total Normal 8.5-10.1 [facility] Comment on above: Result Comment: PT N OT SCHEDULED TODAY PER [facility] NURSE Performed By: #### L 500.4050, L100.0100 ####[facility] [address] [place], [address] CL Normal 98-107 [facility] Comment on above: Result Comment: PT N OT SCHEDULED TODAY PER [facility] NURSE Performed By: #### L 500.4050, L100.0100 ####[facility] [address] [place], [address] CO2 Normal 21.0-32.0 [facility] Comment on above: Result Comment: PT N OT SCHEDULED TODAY PER [facility] NURSE Performed By: #### L 500.4050, L100.0100 ####[facility] [address] [place], [address] CREAT,SERUM Normal 0.70-1.30 [facility] Comment on above: Result Comment: PT N OT SCHEDULED TODAY PER [facility] NURSE Performed By: #### L 500.4050, L100.0100 ####[facility] [address] [place], [address] EST GFR Normal >60 [facility] Comment on above: Result Comment: PT N OT SCHEDULED TODAY PER [facility] NURSE Performed By: #### L 500.4050, L100.0100 ####[facility] [address] [place], [address] EST GFR - AA Normal >60 [facility] Comment on above: Result Comment: PT N OT SCHEDULED TODAY PER [facility] NURSE Performed By: #### L 500.4050, L100.0100 ####[facility] [address] [place], [address] GAP Normal 5-15 [facility] Comment on above: Result Comment: PT N OT SCHEDULED TODAY PER [facility] NURSE Performed By: #### L 500.4050, L100.0100 ####[facility] [address] [place], [address] GLU Normal 74-106 [facility] Comment on above: Result Comment: PT N OT SCHEDULED TODAY PER [facility] NURSE Performed By: #### L 500.4050, L100.0100 ####[facility] [address] [place], [address] Potassium Normal 3.5-5.1 [facility] Comment on above: Result Comment: PT N OT SCHEDULED TODAY PER [facility] NURSE Performed By: #### L 500.4050, L100.0100 ####[facility] [address] [place], [address] T BILI Normal 0.20-1.00 [facility] Comment on above: Result Comment: PT N OT SCHEDULED TODAY PER [facility] NURSE Performed By: #### L 500.4050, L100.0100 ####[facility] [address] [place], [address] T PROT Normal 6.4-8.2 [facility] Comment on above: Result Comment: PT N OT SCHEDULED TODAY PER [facility] NURSE Performed By: #### L 500.4050, L100.0100 ####[facility] [address] [place], [address] Comprehensive Metabolic Profil Normal 136-145 [facility] Comment on above: Result Comment: PT N OT SCHEDULED TODAY PER [facility] NURSE Performed By: #### L 500.4050, L100.0100 ####[facility] [address] [place], [address] Office Visit Reporton 2024 Office Visit Report Normal [facility] CNPNon 11-21-2024 CNPN Telephone (NEAGCLM) ----- KENN ARSHAD SR. ([id number]) 1955 M Date Time Provider Department 11/21/24 FRANCOIS ACEVEDO NEAGCLM During your visit today, we recorded the following information about you: Samuel Castillo 11/21/2024 8:21 AM Signed I spoke to patient spouse confirming follow up day times and location Allergies As of Date: 11/21/2024 (No Known Allergies) Date Reviewed: 11/18/2024 Reviewed by: Francois Acevedo MD - Fully Assessed Prescriptions as of 11/21/2024 - dexAMETHasone (DECADRON) 1 mg tablet Take 0.5 tablets by mouth daily with breakfast. - iv contrast (will be provided with radiology [...] in the MR contrast administration guidelines link - omeprazole (PRILOSEC) 20 mg capsule PLEASE SEE ATTACHED FOR DETAILED DIRECTIONS - ONETOUCH DELICA PLUS LANCET 33 gauge USE TO TEST BLOOD SUGAR 2 TIMES A DAY - ONETOUCH ULTRA2 METER USE TO TEST 2 TIMES DAILY - ONETOUCH ULTRA TEST test strip USE TO TEST BLOOD SUGAR 2 TIMES A DAY - ALCOHOL PREP PADS as directed. - amLODIPine (NORVASC) 10 mg tablet Take 10 mg by mouth once daily. - ELIQUIS 5 mg tab(s) Take 0.5 tablets by mouth twice daily. - carvedilol (COREG) 25 mg tablet Take 25 mg by mouth twice daily with meals. - hydrALAZINE (APRESOLINE) 50 mg tablet Take 1 tablet by mouth twice daily. - pembrolizumab (KEYTRUDA) 25 mg/mL injection Inject intravenously every 3 weeks. Last tx 05.27.2023 - nitroglycerin sublingual (NITROSTAT) 0.4 mg SL tablet Dissolve 0.4 mg under the tongue. - rosuvastatin (CRESTOR) 40 mg tablet Take 40 mg by mouth once daily. Problem List As Of Date 11/21/2024 Noted Resolved 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 [Z85.89] 05/29/2023 Secondary malignant neoplasm of brain (HCC) [C7*08/07/2023 Encounter for management of implanted device [Z*05/10/2024 Encounter Status:Closed by SAMUEL CASTILLO on 11/21/24 [facility] 11-18-2024 CNOV Office Visit (NEAGCL M) ----- KENN ARSHAD SR. ([id number]) 1955 M Date Time Provider Department 11/18/24 10:00 AM FRANCOIS ACEVEDO NEAGCLM During your visit today, we recorded the following information about you: Pulse Respiration Blood pressure Weight 81/minute 16/minute 136/71 97.5 kg Height 1.651 m Francois Acevedo MD 11/18/2024 10:05 AM Signed NEUROSURGERY FOLLOW UP OFFICE NOTE Dr. Francois Acevedo MD, FACS Date of visit: November 18, 2024 Patient Name: Mr.Larry Linda Arshad . Date of : 1955 Current Age: [age] year old Sex: male MRN/E# [id number] Last Office Visit: 10/18/2024 CHIEF COMPLAINT: Patient presents with: Established Patient 6 month follow up with MRI brain - brain mets SUBJECTIVE: The patient presents as a follow up with MRI imaging (brain) for evaluation. This is a 68-year-old male [...] SRS (SBRT) to the metastatic lesion at [facility]. Two months following treatment MRI was completed [...] taking any seizure medications. Neurologically he was intact. MRI brain from April 2023 showed a mix of necrosis as well as viable tumor. MRI with perfusion was recommended. Once MRI completed it showed evidence of perilesional edema likely to be necrosis rather than recurrent tumor. Attempt to wean him off Decadron was not successful. He sustained a fall in October [address] was suspicious for tumor progression/edema. 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 He continued on Decadron and MRI perfusion was ordered. In November 2023 he reported episodes of dizziness and was taking Decadron 0.5 mg twice daily. MRI showed that the area of concern was suspected to be posttreatment necrosis. No surgical intervention was indicated. It was discussed that unless this becomes a burden surgery is not recommended. Attempted to wean him off Decadron and return in 3 months with MRI brain including perfusion sequence. Prior to his follow-up his contacted the office stating that Kenn developed dizziness and numbness. He was advised to increase Decadron to 0.5 mg twice daily and continue until his follow-up. He was seen in the office on 02/19/2024 and reported that he was doing well. He denied any new or concerning issues. Neurologically he was intact on exam without focal deficit. MRI was reviewed and showed stability of the area that was treated in the left parietal region without evidence of increased blood volume on the perfusion sequence. There was also decreasing flair signals in the left parietal lobe and no new lesions identified. Given that he became symptomatic when attempting to decrease the oral steroid recommendation was to keep him on 0.5 mg twice a day and follow-up in 3 months with repeat MRI. He was cleared to undergo cervical spine surgery however it was discussed that he would need to have additional steroids in the perioperative period given his extended use of oral steroids. He was last seen on 05/20/2024 where he was doing well overall. He reported intermittent episodes of dizziness. He continued to be on Decadron 0.5 mg once daily. His MRI showed the area where he was treated in the left temporal region still showed the enhancement as before and we had demonstrated by perfusion that this most likely was a treatment effect. The area was smaller now than on the last scan. Patient still takes half milligram of Decadron daily because every time we had weaned him off the Decadron he complained of symptoms so (more content not included)... Normal [facility] Gastroenterology Visit Repor ton 11-17-2024 Gastroenterology Visit Report Normal [facility] MR Brain WO and W contrast I Von 11-11-2024 IMPRESSION: Redemonstrated left periatrial metastatic focus, appearing smaller since 05/17/2024. No new lesions identified. Acid Operator: FLAVIO Transcribe Date/Time: Nov 11 2024 12:03P Dictated by : VIKA DON MD This examination was interpreted and the report reviewed and electronically signed by: VIKA DON MD on Nov 11 2024 12:37PM [facility] DIVISION OF RADIOLOGY * * *Final Report* * * DATE OF EXAM: Nov 11 2024 11:30AM [facility] 0295 - MRI BRAIN WO/W IVCON / PROCEDURE REASON: multiple diagnoses * * * * Physician Interpretation * * * * EXAMINATION: MRI BRAIN WO/W IVCON HISTORY: Metastatic cancer to brain (HCC) Secondary malignant neoplasm of brain (HCC) - - - Radiation necrosis/pseudoprogressio n - Brain metastases, monitor - [id number] - - FOLLOW UP TP PREVIOUS - - TECHNIQUE: MRI brain intracranial mass protocol without and with contrast. Perfusion imaging was performed. M: [id number] MR Contrast: Dotarem Contrast Dose: 20 cc Route of Administration: IV COMPARISON: MRI brain 02/15/2024 and 05/17/2024. RESULT: Acute Change: No evidence of an acute intracranial process. Hemorrhage: No focal or expansile hematoma or hemorrhage. Susceptibility or artifact in the region of the left periatrial lesion, grossly unchanged. Mass Lesion/ Mass Effect: Redemonstration of an enhancing focal lesion in the left periatrial/periventricula r white matter with intrinsic susceptibility and minimal internal diffusion restriction which measures approximately 2.4 x 2.0 x 2.2 cm in greatest orthogonal AP x TV x CC (series 14, image 58) which appears significantly improved in size and enhancement characteristics since prior exam on 05/17/2024. Similar appearance of surrounding T2/FLAIR perilesional hyperintensity. No significant change in mass effect. No midline shift. No other areas of abnormal intracranial enhancement are seen. Perfusion: MR perfusion study was performed of the entire brain following bolus intravenous administration of gadolinium utilizing dynamic susceptibility-weighted contrast-enhanced acquisition. Within the constraints of susceptibility artifact, no obvious perfusion abnormality or elevated CBV to suggest neovascularity.. Chronic Change: Scattered patchy areas of increased T2 and FLAIR signal are present in the supratentorial white matter which is a nonspecific finding but likely represents mild chronic microvascular ischemia. 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 Parenchyma: No significant parenchymal volume loss for age. Ventricles: Normal caliber and morphology. Skull Base: Hypothalamic and pituitary region are grossly normal. Craniocervical junction is normal. No significant marrow replacement process. Vasculature: Major intracranial arteries and dural venous sinuses demonstrate typical flow voids, suggesting patency by spin echo criteria. Other: Paranasal sinuses demonstrate mild to moderate mucosal thickening particularly in the right maxillary sinus and the right frontal sinus and the ethmoid air cells. Complete opacification of the sphenoid sinus. Bilateral intraocular lens replacement. The orbits and extracranial soft tissues are unremarkable. DIVISION OF RADIOLOGY Provider, [facility] - 11/11/2024 * * *Final Report* * * DATE OF EXAM: Nov 11 2024 11:30AM [facility] 0295 - MRI BRAIN WO/W IVCON / PROCEDURE REASON: multiple diagnoses * * * * Physician Interpretation * * * * EXAMINATION: MRI BRAIN WO/W IVCON HISTORY: Metastatic cancer to brain (HCC) Secondary malignant neoplasm of brain (HCC) - - - Radiation necrosis/pseudoprogressio n - Brain metastases, monitor - [id number] - - FOLLOW UP TP PREVIOUS - - TECHNIQUE: MRI brain intracranial mass protocol without and with contrast. Perfusion imaging was performed. M: [id number] MR Contrast: Dotarem Contrast Dose: 20 cc Route of Administration: IV COMPARISON: MRI brain 02/15/2024 and 05/17/2024. RESULT: Acute Change: No evidence of an acute intracranial process. Hemorrhage: No focal or expansile hematoma or hemorrhage. Susceptibility or artifact in the region of the left periatrial lesion, grossly unchanged. Mass Lesion/ Mass Effect: Redemonstration of an enhancing focal lesion in the left periatrial/periventricula r white matter with intrinsic susceptibility and minimal internal diffusion restriction which measures approximately 2.4 x 2.0 x 2.2 cm in greatest orthogonal AP x TV x CC (series 14, image 58) which appears significantly improved in size and enhancement characteristics since prior exam on 05/17/2024. Similar appearance of surrounding T2/FLAIR perilesional hyperintensity. No significant change in mass effect. No midline shift. No other areas of abnormal intracranial enhancement are seen. Perfusion: MR perfusion study was performed of the entire brain following bolus intravenous administration of gadolinium utilizing dynamic susceptibility-weighted contrast-enhanced acquisition. Within the constraints of susceptibility artifact, no obvious perfusion abnormality or elevated CBV to suggest neovascularity.. Chronic Change: Scattered patchy areas of increased T2 and FLAIR signal are present in the supratentorial white matter which is a nonspecific finding but likely represents mild chronic microvascular ischemia. 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 Parenchyma: No significant parenchymal volume loss for age. Ventricles: Normal caliber and morphology. Skull Base: Hypothalamic and pituitary region are grossly normal. Craniocervical junction is normal. No significant marrow replacement process. Vasculature: Major intracranial arteries and dural venous sinuses demonstrate typical flow voids, suggesting patency by spin echo criteria. Other: Paranasal sinuses demonstrate mild to moderate mucosal thickening particularly in the right maxillary sinus and the right frontal sinus and the ethmoid air cells. Complete opacification of the sphenoid sinus. Bilateral intraocular lens replacement. The orbits and extracranial soft tissues are unremarkable. IMPRESSION IMPRESSION: Redemonstrated left periatrial metastatic focus, appearing smaller since 05/17/2024. No new lesions identified. Acid Operator: PSCB Transcribe Date/Time: Nov 11 2024 12:03P Dictated by : VIKA DON MD This examination was interpreted and the report reviewed and electronically signed by: VIKA DON MD on Nov 11 2024 12:37PM EST [facility] Radiology Study observation (narrative) [facility] MR Brain WO and W contrast I VOrdered By: [facility]cf Provider on 11-11-2024 [facility] MRI BRAIN WO/W IVCONon 11-11 MRI BRAIN WO/W IVCON * * *Final Report* * * DATE OF EXAM: Nov 11 2024 11:30AM [facility] 0295 - MRI BRAIN WO/W IVCON / PROCEDURE REASON: multiple diagnoses * * * * Physician Interpretation * * * * EXAMINATION: MRI BRAIN WO/W IVCON HISTORY: Metastatic cancer to brain (HCC) Secondary malignant neoplasm of brain (HCC) - - - Radiation necrosis/pseudoprogressio n - Brain metastases, monitor - [id number] - - FOLLOW UP TP PREVIOUS - - TECHNIQUE: MRI brain intracranial mass protocol without and with contrast. Perfusion imaging was performed. M: [id number] MR Contrast: Dotarem Contrast Dose: 20 cc Route of Administration: IV COMPARISON: MRI brain 02/15/2024 and 05/17/2024. RESULT: Acute Change: No evidence of an acute intracranial process. Hemorrhage: No focal or expansile hematoma or hemorrhage. Susceptibility or artifact in the region of the left periatrial lesion, grossly unchanged. Mass Lesion/ Mass Effect: Redemonstration of an enhancing focal lesion in the left periatrial/periventricula r white matter with intrinsic susceptibility and minimal internal diffusion restriction which measures approximately 2.4 x 2.0 x 2.2 cm in greatest orthogonal AP x TV x CC (series 14, image 58) which appears significantly improved in size and enhancement characteristics since prior exam on 05/17/2024. Similar appearance of surrounding T2/FLAIR perilesional hyperintensity. No significant change in mass effect. No midline shift. No other areas of abnormal intracranial enhancement are seen. Perfusion: MR perfusion study was performed of the entire brain following bolus intravenous administration of gadolinium utilizing dynamic susceptibility-weighted contrast-enhanced acquisition. Within the constraints of susceptibility artifact, no obvious perfusion abnormality or elevated CBV to suggest neovascularity.. Chronic Change: Scattered patchy areas of increased T2 and FLAIR signal are present in the supratentorial white matter which is a nonspecific finding but likely represents mild chronic microvascular ischemia. 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 Parenchyma: No significant parenchymal volume loss for age. Ventricles: Normal caliber and morphology. Skull Base: Hypothalamic and pituitary region are grossly normal. Craniocervical junction is normal. No significant marrow replacement process. Vasculature: Major intracranial arteries and dural venous sinuses demonstrate typical flow voids, suggesting patency by spin echo criteria. Other: Paranasal sinuses demonstrate mild to moderate mucosal thickening particularly in the right maxillary sinus and the right frontal sinus and the ethmoid air cells. Complete opacification of the sphenoid sinus. Bilateral intraocular lens replacement. The orbits and extracranial soft tissues are unremarkable. IMPRESSION: Redemonstrated left periatrial metastatic focus, appearing smaller since 05/17/2024. No new lesions identified. Acid Operator: [facility] Transcribe Date/Time: Nov 11 2024 12:03P Dictated by : VIKA DON MD This examination was interpreted and the report reviewed and electronically signed by: VIKA DON MD on Nov 11 2024 12:37PM EST [id number] Normal [facility] CBC W/Diff, Automatedon 12-3 Absolute Lymph 0.92 X10 3/uL Normal 0.83-4.51 [facility] Comment on above: Performed By: #### L 100.0100, L501.2300, L500.4050 ####[facility] [address] [place], [address] Absolute Neut 4.7 X10 3/uL Normal 2.0-7.7 [facility] Comment on above: Performed By: #### L 100.0100, L501.2300, L500.4050 ####[facility] [address] [place], [address] Basophils/100 WBC (Bld) 0.6 % Normal 0-1 [facility] Comment on above: Performed By: #### L 100.0100, L501.2300, L500.4050 ####[facility] [address] [place], [address] Eosinophils/100 WBC (Bld) 2.1 % Normal 0-5 [facility] Comment on above: Performed By: #### L 100.0100, L501.2300, L500.4050 ####[facility] [address] [place], [address] Erythrocyte distribution width (RBC) [Ratio] 20.0 % High 11.6-14.6 [facility] Comment on above: Performed By: #### L 100.0100, L501.2300, L500.4050 ####[facility] [address] [place], [address] Hematocrit (Bld) [Volume fraction] 38.2 % Low 40-54 [facility] Comment on above: Performed By: #### L 100.0100, L501.2300, L500.4050 ####[facility] [address] [place], [address] Hemoglobin (Bld) [Mass/Vol] 11.6 g/dL Low 13.0-16.5 [facility] Comment on above: Performed By: #### L 100.0100, L501.2300, L500.4050 ####[facility] [address] [place], [address] IG% 1.700 High 0.0-0.9 [facility] Comment on above: Result Comment: IG% - Immature Granulocytes (promyelocytes, myelocytes andmetamyelocytes) > 1% indicates that a LEFT SHIFT is Present. Performed By: #### L 100.0100, L501.2300, L500.4050 ####[facility] [address] [place], [address] Lymphocytes/100 WBC (Bld) 13.9 % Low 19-41 [facility] Comment on above: Performed By: #### L 100.0100, L501.2300, L500.4050 ####[facility] [address] [place], [address] MCH (RBC) [Entitic mass] 22.4 pg Low 27.0-32.0 [facility] Comment on above: Performed By: #### L 100.0100, L501.2300, L500.4050 ####[facility] [address] [place], [address] MCHC (RBC) [Mass/Vol] 30.4 g/dL Low 32-36 [facility] Comment on above: Performed By: #### L 100.0100, L501.2300, L500.4050 ####[facility] [address] [place], [address] MCV (RBC) [Entitic vol] 73.6 fL Low 80-94 [facility] Comment on above: Performed By: #### L 100.0100, L501.2300, L500.4050 ####[facility] [address] [place], [address] Monocytes/100 WBC (Bld) 10.1 % High 0-10 [facility] Comment on above: Performed By: #### L 100.0100, L501.2300, L500.4050 ####[facility] [address] [place], [address] Neutrophils/100 WBC (Bld) 71.6 % High 47-70 [facility] Comment on above: Performed By: #### L 100.0100, L501.2300, L500.4050 ####[facility] [address] [place], [address] Nucleated RBC (Bld) [#/Vol] 0 10*3/uL Normal 0-5 [facility] Comment on above: Performed By: #### L 100.0100, L501.2300, L500.4050 ####[facility] [address] [place], [address] Platelet mean volume (Bld) [Entitic vol] 9.3 fL Normal 6.2-12.0 [facility] Comment on above: Performed By: #### L 100.0100, L501.2300, L500.4050 ####[facility] [address] [place], [address] Platelets (Bld) [#/Vol] 166 10*3/uL Normal 150-450 [facility] Comment on above: Performed By: #### L 100.0100, L501.2300, L500.4050 ####[facility] [address] [place], [address] RBC (Bld) [#/Vol] 5.19 10*6/uL Normal 4.6-6.2 [facility] Comment on above: Performed By: #### L 100.0100, L501.2300, L500.4050 ####[facility] [address] [place], [address] RDW SD 51.6 fl High 35.1-43.9 [facility] Comment on above: Performed By: #### L 100.0100, L501.2300, L500.4050 ####[facility] [address] [place], [address] WBC (Bld) [#/Vol] 6.6 10*3/uL Normal 4.4-11.0 [facility] Comment on above: Performed By: #### L 100.0100, L501.2300, L500.4050 ####[facility] [address] [place], [address] Comprehensive Metabolic [facility] 11-08-2024 Albumin [Mass/Vol] 3.2 g/dL Normal 3.2-5.0 [facility] Comment on above: Performed By: #### L 100.0100, L501.2300, L500.4050 ####[facility] [address] [place], [address] Albumin/Globulin [Mass ratio] 1.0 {ratio} Normal 0.9-2.4 [facility] Comment on above: Performed By: #### L 100.0100, L501.2300, L500.4050 ####[facility] [address] [place], [address] ALK P 70 U/L Normal 45-117 [facility] [place] Comment on above: Performed By: #### L 100.0100, L501.2300, L500.4050 ####[facility] [place] [address] [place], [address] ALT [Catalytic activity/Vol] 22 U/L Normal 16-61 [facility] [place] Comment on above: Performed By: #### L 100.0100, L501.2300, L500.4050 ####[facility] [place] [address] [place], [address] AST [Catalytic activity/Vol] 12 U/L Low 15-37 [facility] [place] Comment on above: Performed By: #### L 100.0100, L501.2300, L500.4050 ####[facility] [place] [address] [place], [address] Bilirubin [Mass/Vol] 0.40 mg/dL Normal 0.20-1.00 [facility] Comment on above: Result Comment: For patients on eltrombopag therapy, use of Dimension [place] TBIL is not recommended. Performed By: #### L 100.0100, L501.2300, L500.4050 ####[facility] [place] [address] [place], [address] BUN/CRE 18.0 RATIO Normal 10-20 [facility] [place] Comment on above: Performed By: #### L 100.0100, L501.2300, L500.4050 ####[facility] [place] [address] [place], [address] CA,Total 8.6 mg/dL Normal 8.5-10.1 [facility] [place] Comment on above: Performed By: #### L 100.0100, L501.2300, L500.4050 ####[facility] [place] [address] [place], [address] Chloride [Moles/Vol] 111 mmol/L High 98-107 [facility] Comment on above: Performed By: #### L 100.0100, L501.2300, L500.4050 ####[facility] [place] [address] [place], [address] CO2 [Moles/Vol] 23.0 mmol/L Normal 21.0-32.0 [facility] [place] Comment on above: Performed By: #### L 100.0100, L501.2300, L500.4050 ####[facility] [place] [address] [place], [address] Creatinine [Mass/Vol] 1.22 mg/dL Normal 0.70-1.30 [facility] Comment on above: Result Comment: The validity of the calculated GFR GFRAA in patients over70 years has not been determined. Clinical correlation isessential. Performed By: #### L 100.0100, L501.2300, L500.4050 ####[facility] [place] [address] [place], [address] ECRCL 59.40 ml/min Normal [facility] [place] Comment on above: Performed By: #### L 100.0100, L501.2300, L500.4050 ####[facility] [place] [address] [place], [address] EST GFR - AA 75 mL/min Normal >60 [facility] [place] Comment on above: Result Comment: Afri can [place] GFR Calc Performed By: #### L 100.0100, L501.2300, L500.4050 ####[facility] [place] [address] [place], [address] GAP 7 Normal 5-15 [facility] [place] Comment on above: Performed By: #### L 100.0100, L501.2300, L500.4050 ####[facility] [place] [address] [place], [address] GFR/1.73 sq M.predicted among non-blacks MDRD (S/P/Bld) [Vol rate/Area] 62 mL/min/{1.73_m2} Normal >60 [facility] [place] Comment on above: Result Comment: Non- GFR Calc Performed By: #### L 100.0100, L501.2300, L500.4050 ####[facility] [place] [address] [place], [address] Globulin (S) [Mass/Vol] 3.2 g/dL Normal 2.2-4.2 [facility] [place] Comment on above: Performed By: #### L 100.0100, L501.2300, L500.4050 ####[facility] [place] [address] [place], [address] Glucose [Mass/Vol] 134 mg/dL High 74-106 [facility] Comment on above: Result Comment: Fast ing Glucose result greater than or equal to 126 mg/dLsuggests DIABETES MELLITUS per A.D.A. criteria. Performed By: #### L 100.0100, L501.2300, L500.4050 ####[facility] [place] [address] [place], [address] Potassium [Moles/Vol] 3.8 mmol/L Normal 3.5-5.1 [facility] Comment on above: Performed By: #### L 100.0100, L501.2300, L500.4050 ####[facility] [address] [place], [address] Sodium [Moles/Vol] 141 mmol/L Normal 136-145 [facility] Comment on above: Performed By: #### L 100.0100, L501.2300, L500.4050 ####[facility] [place] [address] [place], [address] T PROT 6.4 g/dL Normal 6.4-8.2 [facility] [place] Comment on above: Performed By: #### L 100.0100, L501.2300, L500.4050 ####[facility] [place] [address] [place], [address] Urea nitrogen [Mass/Vol] 22 mg/dL High 7-18 [facility] [place] Comment on above: Performed By: #### L 100.0100, L501.2300, L500.4050 ####[facility] [place] [address] [place], [address] Magnesiumon 11-08-2024 Magnesium [Mass/Vol] 2.0 mg/dL Normal 1.6-2.6 [facility] Comment on above: Performed By: #### L 501.9520, L506.0400, L501.5200 ####[facility] [place] [address] [place], [address] Oncology Visit Reporton 10-11 Oncology Visit Report Normal [facility] Phosphoruson 11-08-2024 Phosphate [Mass/Vol] 3.4 mg/dL Normal 2.5-4.9 [facility] Comment on above: Performed By: #### L 100.0100, L501.2300, L500.4050 ####[facility] [place] [address] [place], [address] T4 Free Directon 11-08-2024 T4 FREE DIRECT 1.14 ng/dL Normal 0.76-1.46 [facility] [place] Comment on above: Performed By: #### L 501.9520, L506.0400, L501.5200 ####[facility] [place] [address] [place], [address] Thyroid Stim Hormone (TSH)on 11-08-2024 TSH 2.960 uIU/mL Normal 0.358-3.740 [facility] [place] Comment on above: Performed By: #### L 501.9520, L506.0400, L501.5200 ####[facility] [place] [address] [place], [address] 37on 10-20-20[address] Sharda busby on anemia and upper and lower endoscopy Normal [facility] Office Visiton 10-20-2024 Follow-up visit [id number] Mirna Arshad 1955 Date Provider Department Center 10/20/2024 [id number] [facility] Family History Problem Relation Age of Onset Coronary artery disease Mother Comments: CABG Coronary artery disease Sister Comments: CABG Stroke Mother Comments: age 77 Lung cancer Mother No Known Problems Sister No Known Problems Brother No Known Problems Sister No Known Problems Sister Diabetes Sister Coronary artery disease Father Comments: age 50 [place] - smoker Coronary artery disease Brother Comments: age 47 [place] Family Status - Relation Status Age at Mother 77 Sister Alive Sister Alive Brother Alive Sister Alive Sister Alive Father 50 Brother 47 Level of Service:[address] [place] OFFICE/OUTPATIENT ESTABLISHED MOD MDM 30 MIN Reason for Visit and Comments: Follow-up [804868] - Med check Normal [facility] Progress Noteon 10-20-2024 Progress Note [facility] - [address] [facility] [id number] Visit type: Established Patient Reason for Visit: Follow-up (Med check ) Assessment / Plan: Kenn was seen today for follow-up. Diagnoses and all orders for this visit: Essential hypertension (Primary) Comments: Stable, continue amlodipine, carvedilol, and a Apresoline Adenocarcinoma of right lung (HCC) Hypercholesterolemia Comments: Stable, continue Crestor await lab Seizure (HCC) History of pulmonary embolism Comments: Stable, continue Eliquis indefinitely Ex-smoker Hypochromic microcytic anemia Comments: New onset, await upper endoscopy and follow-up with Dr. Chambers on colonoscopy History of colon polyps Comments: follow Up with Dr. Chambers on recommendations for colonoscopy Coronary artery disease involving [place] coronary artery of [place] heart without angina pectoris Comments: Stable, reviewed recent stress test, echocardiogram, continue all meds as is Other orders - nitroglycerin (Nitrostat) 0.4 MG SL tablet; Place 1 tablet (0.4 mg) under the tongue every 5 minutes as needed for chest pain. - amLODIPine (Norvasc) 10 MG tablet; Take 1 tablet (10 mg) by mouth daily for 180 doses. - carvedilol (Coreg) 25 MG tablet; Take 1 tablet (25 mg) by mouth 2 times daily (with meals). - hydrALAZINE (Apresoline) 50 MG tablet; Take 1 tablet (50 mg) by mouth 2 times daily. - omeprazole (PriLOSEC) [address] capsule; Take 1 capsule (20 mg) by mouth Daily as needed (reflux). 35 Minutes spent on reviewing pertinent history, patient interview, physical exam, discussion of diagnosis and treatment and work-up options. Reviewed his recent cardiac and hematologic workup with he and his . Reviewed recent lab and past colonoscopy and recommended to check with his honey blender on timing of repeat colonoscopy. Subjective: Patient ID: Kenn Arshad is a 69 y.o. male. 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 Has stable coronary disease, hypertension hyperlipidemia and he presents for checkup. Recently had a stress test and echocardiogram that was normal. Overall feeling well. His on Decadron to help suppress to risk for encephalopathy and seizures. History of hyperlipidemia and hypercholesterolemia on that med. Recent lab is pending. Will be getting MRI imaging of his brain for follow-up on cancer in November. Overall he is felt well. Has gained some weight. No new cardiac or pulmonary concerns Review of Systems denies recent earache sore throat or cough. No purulent phlegm. No use of nitro. No wheezing shortness of breath or claudication. Eating well. No heartburn. Of note has developed a hypochromic microcytic indices and is getting upper endoscopy soon by Dr. Chambers. Patient is aware he at colonic polyps 5 years ago and is recommended to have a repeat colonoscopy. He will discuss that with that GI physician. On Eliquis for pulmonary emboli. PSA slightly elevated to 4 but defers recheck until this coming January. No Known Allergies Current Outpatient Medications on File Prior to Visit Medication Sig Dispense Refill apixaban (Eliquis) 5 MG tablet Take 0.5 tablets (2.5 mg) by mouth 2 times daily. 180 tablet 1 dexAMETHasone (Decadron) 1 MG tablet Take 1 mg by mouth 3 times daily. pembrolizumab (Keytruda) 100 MG/4ML chemo injection Infuse 200 mg into a venous catheter. prednisoLONE acetate (Pred-Forte) 1 % ophthalmic suspension Administer 1 drop into the left eye 2 times daily. Refresh Optive Advanced PF 0.5-1-0.5 % solution Administer 1 drop into both eyes 2 times daily. rosuvastatin (Crestor) 40 MG tablet TAKE 1 TABLET BY MOUTH EVERY DAY 90 tablet 1 [DISCONTINUED] amLODIPine (Norvasc) 10 MG tablet Take [...] [DISCONTINUED] omeprazole (PriLOSEC) [address] capsule TAKE 1 CAPSULE (20 MG) BY MOUTH DAILY NEEDED (REFLUX). 90 capsule 1 ipratropium-albuterol (Duo-Neb) 0.5-2.5 mg/3 mL nebulizer solution Inhale 3 mL. (Patient not taking: Reported on 10/20/2024) Lancets (Vision CriticalTouch Delica Plus [id number]) misc USE TO TEST BLOOD SUGAR 2 TIMES A DAY (Patient not taking: Reported on 09/19/2024) OneTouch Ultra test strip USE TO TEST BLOOD SUGAR 2 TIMES A DAY (Patient not taking: Reported on 09/19/2024) [DISCONTINUED] nitroglycerin (Nitrostat) 0.[address] 0.4 mg under the tongue. No current facility-administered medications on file prior to visit. Patient Active Problem List Diagnosis Right carotid bruit Right inguinal hernia (more content not included)... Normal [facility] CBC W/Diff, Automatedon 10-09 0-2023 Absolute Lymph 0.79 X10 3/uL Low 0.83-4.51 [facility] Comment on above: Performed By: #### L 500.4050, L100.0100, L501.2300 ####[facility] [place] [address] [place], [address] Absolute Neut 5.8 X10 3/uL Normal 2.0-7.7 [facility] Comment on above: Performed By: #### L 500.4050, L100.0100, L501.2300 ####[facility] [place] [address] [place], [address] Basophils/100 WBC (Bld) 0.7 % Normal 0-1 [facility] Comment on above: Performed By: #### L 500.4050, L100.0100, L501.2300 ####[facility] [address] [place], [address] Eosinophils/100 WBC (Bld) 1.6 % Normal 0-5 [facility] Comment on above: Performed By: #### L 500.4050, L100.0100, L501.2300 ####[facility] [place] [address] [place], [address] Erythrocyte distribution width (RBC) [Ratio] 18.6 % High 11.6-14.6 [facility] Comment on above: Performed By: #### L 500.4050, L100.0100, L501.2300 ####[facility] [address] [place], [address] Hematocrit (Bld) [Volume fraction] 37.3 % Low 40-54 [facility] Comment on above: Performed By: #### L 500.4050, L100.0100, L501.2300 ####[facility] [address] [place], [address] Hemoglobin (Bld) [Mass/Vol] 11.5 g/dL Low 13.0-16.5 [facility] Comment on above: Performed By: #### L 500.4050, L100.0100, L501.2300 ####[facility] [address] [place], [address] IG% 1.500 High 0.0-0.9 [facility] Comment on above: Result Comment: IG% - Immature Granulocytes (promyelocytes, myelocytes andmetamyelocytes) > 1% indicates that a LEFT SHIFT is Present. Performed By: #### L 500.4050, L100.0100, L501.2300 ####[facility] [address] [place], [address] Lymphocytes/100 WBC (Bld) 10.5 % Low 19-41 [facility] Comment on above: Performed By: #### L 500.4050, L100.0100, L501.2300 ####[facility] [address] [place], [address] MCH (RBC) [Entitic mass] 22.3 pg Low 27.0-32.0 [facility] Comment on above: Performed By: #### L 500.4050, L100.0100, L501.2300 ####[facility] [address] [place], [address] MCHC (RBC) [Mass/Vol] 30.8 g/dL Low 32-36 [facility] Comment on above: Performed By: #### L 500.4050, L100.0100, L501.2300 ####[facility] [address] [place], [address] MCV (RBC) [Entitic vol] 72.4 fL Low 80-94 [facility] Comment on above: Performed By: #### L 500.4050, L100.0100, L501.2300 ####[facility] [address] [place], [address] Monocytes/100 WBC (Bld) 9.1 % Normal 0-10 [facility] Comment on above: Performed By: #### L 500.4050, L100.0100, L501.2300 ####[facility] [address] [place], [address] Neutrophils/100 WBC (Bld) 76.6 % High 47-70 [facility] Comment on above: Performed By: #### L 500.4050, L100.0100, L501.2300 ####[facility] [address] [place], [address] Nucleated RBC (Bld) [#/Vol] 0 10*3/uL Normal 0-5 [facility] Comment on above: Performed By: #### L 500.4050, L100.0100, L501.2300 ####[facility] [address] [place], [address] Platelet mean volume (Bld) [Entitic vol] 9.2 fL Normal 6.2-12.0 [facility] Comment on above: Performed By: #### L 500.4050, L100.0100, L501.2300 ####[facility] [address] [place], [address] Platelets (Bld) [#/Vol] 164 10*3/uL Normal 150-450 [facility] Comment on above: Performed By: #### L 500.4050, L100.0100, L501.2300 ####[facility] [address] [place], [address] RBC (Bld) [#/Vol] 5.15 10*6/uL Normal 4.6-6.2 [facility] Comment on above: Performed By: #### L 500.4050, L100.0100, L501.2300 ####[facility] [address] [place], [address] RDW SD 46.5 fl High 35.1-43.9 [facility] Comment on above: Performed By: #### L 500.4050, L100.0100, L501.2300 ####[facility] [address] [place], [address] WBC (Bld) [#/Vol] 7.5 10*3/uL Normal 4.4-11.0 [facility] Comment on above: Performed By: #### L 500.4050, L100.0100, L501.2300 ####[facility] [address] [place], [address] Comprehensive Metabolic [facility] 10-18-2024 Albumin [Mass/Vol] 3.3 g/dL Normal 3.2-5.0 [facility] Comment on above: Performed By: #### L 500.4050, L100.0100, L501.2300 ####[facility] [address] [place], [address] Albumin/Globulin [Mass ratio] 1.1 {ratio} Normal 0.9-2.4 [facility] Comment on above: Performed By: #### L 500.4050, L100.0100, L501.2300 ####[facility] [address] [place], [address] ALK P 72 U/L Normal 45-117 [facility] Comment on above: Performed By: #### L 500.4050, L100.0100, L501.2300 ####[facility] [address] [place], [address] ALT [Catalytic activity/Vol] 25 U/L Normal 16-61 [facility] Comment on above: Performed By: #### L 500.4050, L100.0100, L501.2300 ####[facility] [address] [place], [address] AST [Catalytic activity/Vol] 16 U/L Normal 15-37 [facility] Comment on above: Performed By: #### L 500.4050, L100.0100, L501.2300 ####[facility] [address] [place], [address] Bilirubin [Mass/Vol] 0.50 mg/dL Normal 0.20-1.00 [facility] Comment on above: Result Comment: For patients on eltrombopag therapy, use of Dimension [place] TBIL is not recommended. Performed By: #### L 500.4050, L100.0100, L501.2300 ####[facility] [address] [place], [address] BUN/CRE 13.5 RATIO Normal 10-20 [facility] Comment on above: Performed By: #### L 500.4050, L100.0100, L501.2300 ####[facility] [address] [place], [address] CA,Total 9.0 mg/dL Normal 8.5-10.1 [facility] Comment on above: Performed By: #### L 500.4050, L100.0100, L501.2300 ####[facility] [address] [place], [address] Chloride [Moles/Vol] 111 mmol/L High 98-107 [facility] Comment on above: Performed By: #### L 500.4050, L100.0100, L501.2300 ####[facility] [address] [place], [address] CO2 [Moles/Vol] 22.0 mmol/L Normal 21.0-32.0 [facility] Comment on above: Performed By: #### L 500.4050, L100.0100, L501.2300 ####[facility] [address] [place], [address] Creatinine [Mass/Vol] 0.96 mg/dL Normal 0.70-1.30 [facility] Comment on above: Result Comment: The validity of the calculated GFR GFRAA in patients over70 years has not been determined. Clinical correlation isessential. Performed By: #### L 500.4050, L100.0100, L501.2300 ####[facility] [address] [place], [address] ECRCL 75.32 ml/min Normal [facility] Comment on above: Performed By: #### L 500.4050, L100.0100, L501.2300 ####[facility] [address] [place], [address] EST GFR - AA 99 mL/min Normal >60 [facility] Comment on above: Result Comment: Afri can [place] GFR Calc Performed By: #### L 500.4050, L100.0100, L501.2300 ####[facility] [address] [place], [address] GAP 6 Normal 5-15 [facility] Comment on above: Performed By: #### L 500.4050, L100.0100, L501.2300 ####[facility] [address] [place], [address] GFR/1.73 sq M.predicted among non-blacks MDRD (S/P/Bld) [Vol rate/Area] 82 mL/min/{1.73_m2} Normal >60 [facility] Comment on above: Result Comment: Non- GFR Calc Performed By: #### L 500.4050, L100.0100, L501.2300 ####[facility] [address] [place], [address] Globulin (S) [Mass/Vol] 3.1 g/dL Normal 2.2-4.2 [facility] Comment on above: Performed By: #### L 500.4050, L100.0100, L501.2300 ####[facility] [address] [place], [address] Glucose [Mass/Vol] 127 mg/dL High 74-106 [facility] Comment on above: Result Comment: Fast ing Glucose result greater than or equal to 126 mg/dLsuggests DIABETES MELLITUS per A.D.A. criteria. Performed By: #### L 500.4050, L100.0100, L501.2300 ####[facility] [address] [place], [address] Potassium [Moles/Vol] 3.6 mmol/L Normal 3.5-5.1 [facility] Comment on above: Performed By: #### L 500.4050, L100.0100, L501.2300 ####[facility] [address] [place], [address] Sodium [Moles/Vol] 139 mmol/L Normal 136-145 [facility] Comment on above: Performed By: #### L 500.4050, L100.0100, L501.2300 ####[facility] [address] [place], [address] T PROT 6.4 g/dL Normal 6.4-8.2 [facility] Comment on above: Performed By: #### L 500.4050, L100.0100, L501.2300 ####[facility] [address] [place], [address] Urea nitrogen [Mass/Vol] 13 mg/dL Normal 7-18 [facility] Comment on above: Performed By: #### L 500.4050, L100.0100, L501.2300 ####[facility] [address] [place], [address] Ferritinon 10-18-2024 Ferritin [Mass/Vol] 21 ng/mL Low 26-388 [facility] Comment on above: Order Comment: PLELISSET E ADD TO BLOOD IN THE LAB. THANK YOU!! Performed By: #### L 503.6550, L503.6030 ####[facility] [address] [place], [address] High density lipoprotein (HD L) measurementOrdered By: Thien Sandoval on 10-18-2024 Cholesterol in HDL [Mass/Vol] 35 mg/dL Low >40 [facility] Comment on above: The drugs N-Acetylcy steine and Metamizole may falsely depress this assay. Reference Range HDL <40 mg/dL Low HDL Cholesterol HDL >or= 60 mg/dL High HDL Cholesterol High density lipoprotein (HDL) measurement 35 mg/dL Low >40 [facility] Iron+Iron Binding Capacityon 10-18-2024 Iron [Mass/Vol] 36 ug/dL Low 65-175 [facility] Comment on above: Order Comment: PLEAS E ADD TO BLOOD IN THE LAB. THANK YOU!! Performed By: #### L 503.6550, L503.6030 ####[facility] [address] [place], [address] IRON SATURATION 8.6 Low 15.0-55.0 [facility] Comment on above: Order Comment: PLEAS E ADD TO BLOOD IN THE LAB. THANK YOU!! Performed By: #### L 503.6550, L503.6030 ####[facility] [address] [place], [address] TIBC 417 ug/dL Normal 250-450 [facility] Comment on above: Order Comment: PLEAS E ADD TO BLOOD IN THE LAB. THANK YOU!! Performed By: #### L 503.6550, L503.6030 ####[facility] [address] [place], [address] Lipid Profileon 10-18-2024 Cholesterol [Mass/Vol] 132 mg/dL Normal 200 [facility] Comment on above: Order Comment: ADD T O BLOOD IN LAB. THANK YOU!! Result Comment: <200 mg/dL Desirable 200-240 mg/dL Borderline >240 mg/dL High Risk Performed By: #### L 500.4100 ####[facility] [address] [place], [address] Cholesterol in HDL [Mass/Vol] 35 mg/dL Low [facility] Comment on above: Order Comment: ADD T O BLOOD IN LAB. THANK YOU!! Result Comment: The drugs N-Acetylcysteine and Metamizole may falselydepress this assay. Reference Range HDL <40 mg/dL Low HDL Cholesterol HDL >or= 60 mg/dL High HDL Cholesterol Performed By: #### L 500.4100 ####[facility] [address] [place], [address] Cholesterol in LDL [Mass/Vol] 68 mg/dL Normal 0-130 [facility] Comment on above: Order Comment: ADD T O BLOOD IN LAB. THANK YOU!! Performed By: #### L 500.4100 ####[facility] [address] [place], [address] Cholesterol in VLDL [Mass/Vol] 29 mg/dL Normal 5-40 [facility] Comment on above: Order Comment: ADD T O BLOOD IN LAB. THANK YOU!! Performed By: #### L 500.4100 ####[facility] [address] [place], [address] Triglyceride [Mass/Vol] 147 mg/dL Normal [facility] Comment on above: Order Comment: ADD T O BLOOD IN LAB. THANK YOU!! Result Comment: The drugs N-Acetylcysteine and Metamizole may falselydepress this assay.Serum Triglycerides Reference Interval Normal <150 mg/dL Borderline high 150 - 199 mg/dL High 200 - 499 mg/dL Very High > or = 500 mg/dL Performed By: #### L 500.4100 ####[facility] [address] [place], [place], [id number] Low density lipoprotein (LDL ) cholesterol measurementOrdered By: Thien Sandoval on 10-18-2024 Cholesterol in LDL [Mass/Vol] 68 mg/dL 0-130 [facility] Low density lipoprotein (LDL) cholesterol measurement 68 mg/dL 0-130 [facility] Oncology Visit Reporton 10-09 0 Oncology Visit Report Normal [facility] Phosphoruson 10-18-2024 Phosphate [Mass/Vol] 2.9 mg/dL Normal 2.5-4.9 [facility] Comment on above: Performed By: #### L 500.4050, L100.0100, L501.2300 ####[facility] [address] [place], [place], [id number] Serum or plasma cholesterol measurement (mass/volume)Ordered By: Thien Sandoval on 10-18-2024 Cholesterol [Mass/Vol] 132 mg/dL <200 [facility] Comment on above: <200 mg/dL Desirable 200-240 mg/dL Borderline >240 mg/dL High Risk Triglycerides measurementOrd ered By: Thien Sandoval on 10-18-2024 Triglyceride [Mass/Vol] 147 mg/dL <199 [facility] Comment on above: The drugs N-Acetylcy steine and Metamizole may falsely depress this assay.Serum Triglycerides Reference Interval Normal <150 mg/dL Borderline high 150 - 199 mg/dL High 200 - 499 mg/dL Very High > or = 500 mg/dL Very low density lipoprotein (VLDL) cholesterol measurementOrdered By: Thien Sandoval on 10-18-2024 Very low density lipoprotein (VLDL) cholesterol measurement 29 mg/dL 5-40 [facility] 36on 10-10-2024 36 Recent Visits Date Type Provider Dept 09/19/24 Office Visit Jacob Jennings DO [facility] 04/19/24 Office Visit Jacob Jennings DO [facility] 01/07/24 Office Visit Jacob Jennings DO [facility] 11/24/23 Office Visit Em Philip PA-C [facility] Showing recent visits within past 365 days and meeting all other requirements Future Appointments Date Type Provider Dept 10/20/24 Appointment Jacob Jennings DO [facility] Showing future appointments within next 90 days and meeting all other requirements Requested Prescriptions Pending Prescriptions Disp Refills omeprazole (PriLOSEC) [address] capsule [Pharmacy Med Name: OMEPRAZOLE DR 20 MG CAPSULE] 90 capsule 1 Sig: TAKE 1 CAPSULE (20 MG) BY MOUTH DAILY NEEDED (REFLUX). Provider: Jacob Jennings DO Verified pharmacy: yes Verified day(s) supplied: yes Verified refill(s) needed (previous prescription showing no refills in chart): Yes Have you received any controlled medications from any other provider? N/A Overdue for visit: No If yes - patient scheduled? N/A Most recent labs completed in chart? No None Normal [facility] CBC W/Diff, Automatedon 09-10 Absolute Lymph 0.90 X10 3/uL Normal 0.83-4.51 [facility] Comment on above: Order Comment: PT WA S NOT FASTING OTHERWISE WOULD HAVE PULLED OVER LIPIDFOR DR SANDOVAL. PT HAD COFFEE WITH CREAM IN THE AM BEFOREARRIVING. Performed By: #### L 501.2300, L500.4050, L100.0100 ####[facility] [address] [place], [address] Absolute Neut 5.4 X10 3/uL Normal 2.0-7.7 [facility] Comment on above: Order Comment: PT WA S NOT FASTING OTHERWISE WOULD HAVE PULLED OVER LIPIDFOR DR SANDOVAL. PT HAD COFFEE WITH CREAM IN THE AM BEFOREARRIVING. Performed By: #### L 501.2300, L500.4050, L100.0100 ####[facility] [address] [place], [address] Basophils/100 WBC (Bld) 0.7 % Normal 0-1 [facility] Comment on above: Order Comment: PT WA S NOT FASTING OTHERWISE WOULD HAVE PULLED OVER LIPIDFOR DR SANDOVAL. PT HAD COFFEE WITH CREAM IN THE AM BEFOREARRIVING. Performed By: #### L 501.2300, L500.4050, L100.0100 ####[facility] [address] [place], [address] Eosinophils/100 WBC (Bld) 1.8 % Normal 0-5 [facility] Comment on above: Order Comment: PT WA S NOT FASTING OTHERWISE WOULD HAVE PULLED OVER LIPIDFOR DR SANDOVAL. PT HAD COFFEE WITH CREAM IN THE AM BEFOREARRIVING. Performed By: #### L 501.2300, L500.4050, L100.0100 ####[facility] [address] [place], [address] Erythrocyte distribution width (RBC) [Ratio] 17.9 % High 11.6-14.6 [facility] Comment on above: Order Comment: PT WA S NOT FASTING OTHERWISE WOULD HAVE PULLED OVER LIPIDFOR DR SANDOVAL. PT HAD COFFEE WITH CREAM IN THE AM BEFOREARRIVING. Performed By: #### L 501.2300, L500.4050, L100.0100 ####[facility] [address] [place], [address] Hematocrit (Bld) [Volume fraction] 37.7 % Low 40-54 [facility] Comment on above: Order Comment: PT WA S NOT FASTING OTHERWISE WOULD HAVE PULLED OVER LIPIDFOR DR SANDOVAL. PT HAD COFFEE WITH CREAM IN THE AM BEFOREARRIVING. Performed By: #### L 501.2300, L500.4050, L100.0100 ####[facility] [address] [place], [address] Hemoglobin (Bld) [Mass/Vol] 11.7 g/dL Low 13.0-16.5 [facility] Comment on above: Order Comment: PT WA S NOT FASTING OTHERWISE WOULD HAVE PULLED OVER LIPIDFOR DR SANDOVAL. PT HAD COFFEE WITH CREAM IN THE AM BEFOREARRIVING. Performed By: #### L 501.2300, L500.4050, L100.0100 ####[facility] [address] [place], [address] IG% 2.100 High 0.0-0.9 [facility] Comment on above: Order Comment: PT WA S NOT FASTING OTHERWISE WOULD HAVE PULLED OVER LIPIDFOR DR SANDOVAL. PT HAD COFFEE WITH CREAM IN THE AM BEFOREARRIVING. Result Comment: IG% - Immature Granulocytes (promyelocytes, myelocytes andmetamyelocytes) > 1% indicates that a LEFT SHIFT is Present. Performed By: #### L 501.2300, L500.4050, L100.0100 ####[facility] [address] [place], [address] Lymphocytes/100 WBC (Bld) 12.3 % Low 19-41 [facility] Comment on above: Order Comment: PT WA S NOT FASTING OTHERWISE WOULD HAVE PULLED OVER LIPIDFOR DR SANDOVAL. PT HAD COFFEE WITH CREAM IN THE AM BEFOREARRIVING. Performed By: #### L 501.2300, L500.4050, L100.0100 ####[facility] [address] [place], [address] MCH (RBC) [Entitic mass] 22.5 pg Low 27.0-32.0 [facility] Comment on above: Order Comment: PT WA S NOT FASTING OTHERWISE WOULD HAVE PULLED OVER LIPIDFOR DR SANDOVAL. PT HAD COFFEE WITH CREAM IN THE AM BEFOREARRIVING. Performed By: #### L 501.2300, L500.4050, L100.0100 ####[facility] [address] [place], [address] MCHC (RBC) [Mass/Vol] 31.0 g/dL Low 32-36 [facility] Comment on above: Order Comment: PT WA S NOT FASTING OTHERWISE WOULD HAVE PULLED OVER LIPIDFOR DR SANDOVAL. PT HAD COFFEE WITH CREAM IN THE AM BEFOREARRIVING. Performed By: #### L 501.2300, L500.4050, L100.0100 ####[facility] [address] [place], [address] MCV (RBC) [Entitic vol] 72.4 fL Low 80-94 [facility] Comment on above: Order Comment: PT WA S NOT FASTING OTHERWISE WOULD HAVE PULLED OVER LIPIDFOR DR SANDOVAL. PT HAD COFFEE WITH CREAM IN THE AM BEFOREARRIVING. Performed By: #### L 501.2300, L500.4050, L100.0100 ####[facility] [address] [place], [address] Monocytes/100 WBC (Bld) 8.8 % Normal 0-10 [facility] Comment on above: Order Comment: PT WA S NOT FASTING OTHERWISE WOULD HAVE PULLED OVER LIPIDFOR DR SANDOVAL. PT HAD COFFEE WITH CREAM IN THE AM BEFOREARRIVING. Performed By: #### L 501.2300, L500.4050, L100.0100 ####[facility] [address] [place], [address] Neutrophils/100 WBC (Bld) 74.3 % High 47-70 [facility] Comment on above: Order Comment: PT WA S NOT FASTING OTHERWISE WOULD HAVE PULLED OVER LIPIDFOR DR SANDOVAL. PT HAD COFFEE WITH CREAM IN THE AM BEFOREARRIVING. Performed By: #### L 501.2300, L500.4050, L100.0100 ####[facility] [address] [place], [address] Nucleated RBC (Bld) [#/Vol] 0 10*3/uL Normal 0-5 [facility] Comment on above: Order Comment: PT WA S NOT FASTING OTHERWISE WOULD HAVE PULLED OVER LIPIDFOR DR SANDOVAL. PT HAD COFFEE WITH CREAM IN THE AM BEFOREARRIVING. Performed By: #### L 501.2300, L500.4050, L100.0100 ####[facility] [address] [place], [address] Platelet mean volume (Bld) [Entitic vol] 9.0 fL Normal 6.2-12.0 [facility] Comment on above: Order Comment: PT WA S NOT FASTING OTHERWISE WOULD HAVE PULLED OVER LIPIDFOR DR SANDOVAL. PT HAD COFFEE WITH CREAM IN THE AM BEFOREARRIVING. Performed By: #### L 501.2300, L500.4050, L100.0100 ####[facility] [address] [place], [address] Platelets (Bld) [#/Vol] 169 10*3/uL Normal 150-450 [facility] Comment on above: Order Comment: PT WA S NOT FASTING OTHERWISE WOULD HAVE PULLED OVER LIPIDFOR DR SANDOVAL. PT HAD COFFEE WITH CREAM IN THE AM BEFOREARRIVING. Performed By: #### L 501.2300, L500.4050, L100.0100 ####[facility] [address] [place], [address] RBC (Bld) [#/Vol] 5.21 10*6/uL Normal 4.6-6.2 [facility] Comment on above: Order Comment: PT WA S NOT FASTING OTHERWISE WOULD HAVE PULLED OVER LIPIDFOR DR SANDOVAL. PT HAD COFFEE WITH CREAM IN THE AM BEFOREARRIVING. Performed By: #### L 501.2300, L500.4050, L100.0100 ####[facility] [address] [place], [address] RDW SD 46.1 fl High 35.1-43.9 [facility] Comment on above: Order Comment: PT WA S NOT FASTING OTHERWISE WOULD HAVE PULLED OVER LIPIDFOR DR SANDOVAL. PT HAD COFFEE WITH CREAM IN THE AM BEFOREARRIVING. Performed By: #### L 501.2300, L500.4050, L100.0100 ####[facility] [address] [place], [address] WBC (Bld) [#/Vol] 7.3 10*3/uL Normal 4.4-11.0 [facility] Comment on above: Order Comment: PT WA S NOT FASTING OTHERWISE WOULD HAVE PULLED OVER LIPIDFOR DR SANDOVAL. PT HAD COFFEE WITH CREAM IN THE AM BEFOREARRIVING. Performed By: #### L 501.2300, L500.4050, L100.0100 ####[facility] [address] [place], [address] Comprehensive Metabolic Prof [facility] 09-28-2024 Albumin [Mass/Vol] 3.3 g/dL Normal 3.2-5.0 [facility] Comment on above: Order Comment: PT WA S NOT FASTING OTHERWISE WOULD HAVE PULLED OVER LIPIDFOR DR SANDOVAL. PT HAD COFFEE WITH CREAM IN THE AM BEFOREARRIVING. Performed By: #### L 501.2300, L500.4050, L100.0100 ####[facility] [address] [place], [address] Albumin/Globulin [Mass ratio] 1.1 {ratio} Normal 0.9-2.4 [facility] Comment on above: Order Comment: PT WA S NOT FASTING OTHERWISE WOULD HAVE PULLED OVER LIPIDFOR DR SANDOVAL. PT HAD COFFEE WITH CREAM IN THE AM BEFOREARRIVING. Performed By: #### L 501.2300, L500.4050, L100.0100 ####[facility] [address] [place], [address] ALK P 66 U/L Normal 45-117 [facility] Comment on above: Order Comment: PT WA S NOT FASTING OTHERWISE WOULD HAVE PULLED OVER LIPIDFOR DR SANDOVAL. PT HAD COFFEE WITH CREAM IN THE AM BEFOREARRIVING. Performed By: #### L 501.2300, L500.4050, L100.0100 ####[facility] [address] [place], [address] ALT [Catalytic activity/Vol] 24 U/L Normal 16-61 [facility] Comment on above: Order Comment: PT WA S NOT FASTING OTHERWISE WOULD HAVE PULLED OVER LIPIDFOR DR SANDOVAL. PT HAD COFFEE WITH CREAM IN THE AM BEFOREARRIVING. Performed By: #### L 501.2300, L500.4050, L100.0100 ####[facility] [address] [place], [address] AST [Catalytic activity/Vol] 16 U/L Normal 15-37 [facility] Comment on above: Order Comment: PT WA S NOT FASTING OTHERWISE WOULD HAVE PULLED OVER LIPIDFOR DR SANDOVAL. PT HAD COFFEE WITH CREAM IN THE AM BEFOREARRIVING. Performed By: #### L 501.2300, L500.4050, L100.0100 ####[facility] [address] [place], [address] Bilirubin [Mass/Vol] 0.40 mg/dL Normal 0.20-1.00 [facility] Comment on above: Order Comment: PT WA S NOT FASTING OTHERWISE WOULD HAVE PULLED OVER LIPIDFOR DR SANDOVAL. PT HAD COFFEE WITH CREAM IN THE AM BEFOREARRIVING. Result Comment: For patients on eltrombopag therapy, use of Dimension [place] TBIL is not recommended. Performed By: #### L 501.2300, L500.4050, L100.0100 ####[facility] [address] [place], [address] BUN/CRE 23.2 RATIO High 10-20 [facility] Comment on above: Order Comment: PT WA S NOT FASTING OTHERWISE WOULD HAVE PULLED OVER LIPIDFOR DR SANDOVAL. PT HAD COFFEE WITH CREAM IN THE AM BEFOREARRIVING. Performed By: #### L 501.2300, L500.4050, L100.0100 ####[facility] [address] [place], [address] CA,Total 8.6 mg/dL Normal 8.5-10.1 [facility] Comment on above: Order Comment: PT WA S NOT FASTING OTHERWISE WOULD HAVE PULLED OVER LIPIDFOR DR SANDOVAL. PT HAD COFFEE WITH CREAM IN THE AM BEFOREARRIVING. Performed By: #### L 501.2300, L500.4050, L100.0100 ####[facility] [address] [place], [address] Chloride [Moles/Vol] 112 mmol/L High 98-107 [facility] Comment on above: Order Comment: PT WA S NOT FASTING OTHERWISE WOULD HAVE PULLED OVER LIPIDFOR DR SANDOVAL. PT HAD COFFEE WITH CREAM IN THE AM BEFOREARRIVING. Performed By: #### L 501.2300, L500.4050, L100.0100 ####[facility] [address] [place], [address] CO2 [Moles/Vol] 22.0 mmol/L Normal 21.0-32.0 [facility] Comment on above: Order Comment: PT WA S NOT FASTING OTHERWISE WOULD HAVE PULLED OVER LIPIDFOR DR SANDOVAL. PT HAD COFFEE WITH CREAM IN THE AM BEFOREARRIVING. Performed By: #### L 501.2300, L500.4050, L100.0100 ####[facility] [address] [place], [address] Creatinine [Mass/Vol] 0.95 mg/dL Normal 0.70-1.30 [facility] Comment on above: Order Comment: PT WA S NOT FASTING OTHERWISE WOULD HAVE PULLED OVER LIPIDFOR DR SANDOVAL. PT HAD COFFEE WITH CREAM IN THE AM BEFOREARRIVING. Result Comment: The validity of the calculated GFR GFRAA in patients over70 years has not been determined. Clinical correlation isessential. Performed By: #### L 501.2300, L500.4050, L100.0100 ####[facility] [address] [place], [address] ECRCL 77.22 ml/min Normal [facility] Comment on above: Order Comment: PT WA S NOT FASTING OTHERWISE WOULD HAVE PULLED OVER LIPIDFOR DR SANDOVAL. PT HAD COFFEE WITH CREAM IN THE AM BEFOREARRIVING. Performed By: #### L 501.2300, L500.4050, L100.0100 ####[facility] [address] [place], [address] EST GFR - AA 101 mL/min Normal >60 [facility] Comment on above: Order Comment: PT WA S NOT FASTING OTHERWISE WOULD HAVE PULLED OVER LIPIDFOR DR SANDOVAL. PT HAD COFFEE WITH CREAM IN THE AM BEFOREARRIVING. Result Comment: Afri can [place] GFR Calc Performed By: #### L 501.2300, L500.4050, L100.0100 ####[facility] [address] [place], [address] GAP 4 Low 5-15 [facility] Comment on above: Order Comment: PT WA S NOT FASTING OTHERWISE WOULD HAVE PULLED OVER LIPIDFOR DR SANDOVAL. PT HAD COFFEE WITH CREAM IN THE AM BEFOREARRIVING. Performed By: #### L 501.2300, L500.4050, L100.0100 ####[facility] [address] [place], [address] GFR/1.73 sq M.predicted among non-blacks MDRD (S/P/Bld) [Vol rate/Area] 83 mL/min/{1.73_m2} Normal >60 [facility] Comment on above: Order Comment: PT WA S NOT FASTING OTHERWISE WOULD HAVE PULLED OVER LIPIDFOR DR SANDOVAL. PT HAD COFFEE WITH CREAM IN THE AM BEFOREARRIVING. Result Comment: Non- GFR Calc Performed By: #### L 501.2300, L500.4050, L100.0100 ####[facility] [address] [place], [address] Globulin (S) [Mass/Vol] 2.9 g/dL Normal 2.2-4.2 [facility] Comment on above: Order Comment: PT WA S NOT FASTING OTHERWISE WOULD HAVE PULLED OVER LIPIDFOR DR SANDOVAL. PT HAD COFFEE WITH CREAM IN THE AM BEFOREARRIVING. Performed By: #### L 501.2300, L500.4050, L100.0100 ####[facility] [address] [place], [address] Glucose [Mass/Vol] 125 mg/dL High 74-106 [facility] Comment on above: Order Comment: PT WA S NOT FASTING OTHERWISE WOULD HAVE PULLED OVER LIPIDFOR DR SANDOVAL. PT HAD COFFEE WITH CREAM IN THE AM BEFOREARRIVING. Result Comment: Fast ing Glucose result from 100 to 125 mg/dLsuggests IMPAIRED HOMEOSTASIS per A.D.A. criteria. Performed By: #### L 501.2300, L500.4050, L100.0100 ####[facility] [address] [place], [address] Potassium [Moles/Vol] 3.7 mmol/L Normal 3.5-5.1 [facility] Comment on above: Order Comment: PT WA S NOT FASTING OTHERWISE WOULD HAVE PULLED OVER LIPIDFOR DR SANDOVAL. PT HAD COFFEE WITH CREAM IN THE AM BEFOREARRIVING. Performed By: #### L 501.2300, L500.4050, L100.0100 ####[facility] [address] [place], [address] Sodium [Moles/Vol] 138 mmol/L Normal 136-145 [facility] Comment on above: Order Comment: PT WA S NOT FASTING OTHERWISE WOULD HAVE PULLED OVER LIPIDFOR DR SANDOVAL. PT HAD COFFEE WITH CREAM IN THE AM BEFOREARRIVING. Performed By: #### L 501.2300, L500.4050, L100.0100 ####[facility] [address] [place], [address] T PROT 6.2 g/dL Low 6.4-8.2 [facility] Comment on above: Order Comment: PT WA S NOT FASTING OTHERWISE WOULD HAVE PULLED OVER LIPIDFOR DR SANDOVAL. PT HAD COFFEE WITH CREAM IN THE AM BEFOREARRIVING. Performed By: #### L 501.2300, L500.4050, L100.0100 ####[facility] [address] [place], [address] Urea nitrogen [Mass/Vol] 22 mg/dL High 7-18 [facility] Comment on above: Order Comment: PT WA S NOT FASTING OTHERWISE WOULD HAVE PULLED OVER LIPIDFOR DR SANDOVAL. PT HAD COFFEE WITH CREAM IN THE AM BEFOREARRIVING. Performed By: #### L 501.2300, L500.4050, L100.0100 ####[facility] [address] [place], [address] Oncology Visit Reporton 09-10 Oncology Visit Report Normal [facility] Phosphoruson 09-28-2024 Phosphate [Mass/Vol] 3.2 mg/dL Normal 2.5-4.9 [facility] Comment on above: Order Comment: PT WA S NOT FASTING OTHERWISE WOULD HAVE PULLED OVER LIPIDFOR DR SANDOVAL. PT HAD COFFEE WITH CREAM IN THE AM BEFOREARRIVING. Performed By: #### L 501.2300, L500.4050, L100.0100 ####[facility] [address] [place], [address] 36on 09-22-2024 36 Rx loaded Normal [facility] 37on 09-19-2024 37 Call with any worsen ing of this left sided neck lesion. Apply first-aid ointment as directed. Normal [facility] Office Visiton 09-19-2024 Follow-up visit [id number] Mirna Arshad 1955 M Date Provider Department Center 09/19/2024 [id number] BOLES [facility] Family History Problem Relation Age of Onset Coronary artery disease Mother Comments: CABG Coronary artery disease Sister Comments: CABG Stroke Mother Comments: age 77 Lung cancer Mother No Known Problems Sister No Known Problems Brother No Known Problems Sister No Known Problems Sister Diabetes Sister Coronary artery disease Father Comments: age 50 [place] - smoker Coronary artery disease Brother Comments: age 47 [place] Family Status - Relation Status Age at Mother 77 Sister Alive Sister Alive Brother Alive Sister Alive Sister Alive Father 50 Brother 47 Level of Service:72151 [place] OFFICE/OUTPATIENT ESTABLISHED LOW MDM 20 MIN Reason for Visit and Comments: Other [0] - Boil on left side of collar bone areas neck and left side of head Flu Vaccine [189] - Patient has already received the flu vaccine. Chart has been updated to reflect Normal [facility] Progress Noteon 09-19-2024 Progress Note [facility] - [address] [facility] [id number] Visit type: Established Patient Reason for Visit: Other (Boil on left side of collar bone areas neck and left side of head ) and Flu Vaccine (Patient has already received the flu vaccine. Chart has been updated to reflect ) Assessment / Plan: Kenn was seen today for other and flu vaccine. Diagnoses and all orders for this visit: Skin infection (Primary) Comments: Resolving, first-aid care and Keflex Coronary artery disease involving lac vieux coronary artery of lac vieux heart without angina pectoris 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) Comments: Stable, encouragement given. Follow-up with oncology and neurology. Inclusion cyst Comments: Reassurance. Reviewed MRI of the brain from May 2024 and no worrisome pathology Other orders - cephalexin (Keflex) 500 MG capsule; Take 1 capsule (500 mg) by mouth 3 times daily for 10 days. Subjective: Patient ID: Kenn Arshad is a 68 y.o. male. HPI patient presents to discuss a lesion on the anterior lateral of the left side of his neck that has been somewhat itchy and reddened and swollen over the last 5 days. Began with a sense of a bug bite and since then has been slightly irritated and reddened. Review of Systems also concerned about a bump behind his left ear on the occiput. Saw dermatology who thought it was a lipoma. Would like my opinion. It is not terribly tender. It is mobile and not enlarging. MRI of the brain done for his follow-up for his metastatic lung cancer showed no mass lesions a few months ago. No constitutional symptoms. Status post anterior neck fusion several months ago but that incision is clean and dry. This lesion is superior lateral to any incision. Some numbness of his extremities but his strength and proving in no pain to his arms Recent cardiac, hematology and neurosurgery notes reviewed. MRI brain and CT for surveillance purposes being done first of the year. No Known Allergies Current Outpatient Medications on File Prior to Visit Medication Sig Dispense Refill amLODIPine (Norvasc) 10 MG tablet Take 1 tablet (10 mg) by mouth daily for 180 doses. 90 tablet 1 apixaban (Eliquis) 5 MG tablet Take 0.5 tablets (2.5 mg) by mouth 2 times daily. 180 tablet 1 carvedilol (Coreg) 25 MG tablet Take 1 [...] mg) by mouth Daily as needed (reflux). 90 capsule 1 pembrolizumab (Keytruda) 100 MG/4ML chemo injection Infuse 200 mg into a venous catheter. Refresh Optive Advanced PF 0.5-1-0.5 % solution Administer 1 drop into both eyes 2 times daily. rosuvastatin (Crestor) 40 MG tablet Take 1 tablet (40 mg) by mouth daily for 180 doses. 90 tablet 1 Lancets (OneTouch Delica Plus [id number]) misc USE TO TEST BLOOD SUGAR 2 TIMES A DAY (Patient not taking: Reported on 09/19/2024) OneTouch Ultra test strip USE TO TEST BLOOD SUGAR 2 TIMES A DAY (Patient not taking: Reported on 09/19/2024) No current facility-administered medications on file prior [...] Social History Tobacco Use Smoking status: Former Current packs/day: 0.00 Average packs/day: 1.5 packs/day for 40.1 years (60.2 ttl pk-yrs) Types: Cigarettes Start date: 02/01/1981 Quit date: 03/12/2021 Years since quittin.5 Smokeless tobacco: Never Substance Use Topics Alcohol use: Yes Alcohol/week: 14.0 standard drinks of alcohol Past Surgical History: Procedure Laterality Date ANTERIOR CERVICAL DISCECTOMY W/ FUSION (more content not included)... Normal [facility] Cerv Spine 2 or 3 Viewson Cerv Spine 2 or 3 Views Normal [facility] Orthopedic Visit Reporton Orthopedic Visit Report Normal [facility] MR Brain WO and W contrast I Von 05-17-2024 IMPRESSION: The previously described metastatic deposit in the left. Frontal white matter has decreased in size. No new lesions identified. 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 Paranasal sinuses redemonstrate extensive chronic inflammatory changes as outlined above. Acid Operator: FLAVIO Transcribe Date/Time: May 17 2024 11:16A Dictated by : JOCELYN SHAFER MD This examination was interpreted and the report reviewed and electronically signed by: JOCELYN SHAFER MD on May 17 2024 11:22AM [facility] [employer] * * *Final Report* * * DATE OF EXAM: May 17 2024 11:06AM [id number] - MRI BRAIN WO/W IVCON / PROCEDURE REASON: Metastatic cancer to brain (HCC) * * * * Physician Interpretation * * * * EXAMINATION: MRI BRAIN WO/W IVCON CLINICAL HISTORY: SAH (subarachnoid hemorrhage) (HCC) Nontraumatic subarachnoid hemorrhage (HCC) TECHNIQUE: MRI brain routine protocol was acquired before and after the intravenous and measures of gadolinium. COMPARISON: MRI brain 02/27/2024. RESULT: Acute Change: There is no evidence of an acute intracranial process. Hemorrhage: No evidence of prior parenchymal hemorrhage on the gradient echo images. Mass Lesion/ Mass Effect: The previously described ring-enhancing lesion involving the left. The white matter has improved. It currently measures approximately 2.2 x 2.3 x 3.0 cm in greatest AP, transverse, CC dimensions (previously 2.7 x 2.6 x 3.8 cm. There is improving surrounding mass effect. Previously noted surrounding T2/FLAIR signal are mildly also reveals mild interval improvement. The lesion again reveals peripheral susceptibility artifact in keeping with calcification. No new lesions identified. 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 Scattered patchy areas of increased T2 and FLAIR signal are present in the supratentorial white matter which is a nonspecific finding but likely represents mild chronic microvascular ischemia. Parenchyma: No significant volume loss for age. The brain parenchyma is otherwise within normal limits of signal intensity and morphology. Ventricles: Normal caliber and morphology. Skull Base: Hypothalamic and pituitary region are grossly normal. Craniocervical junction is normal. No significant marrow replacement process. Vasculature: Major intracranial arterial structures, and dural venous sinuses show typical flow void, suggesting patency by spin echo criteria. Other: The right maxillary sinus is again noted to be completely opacified. The scattered mucosal thickening throughout the S1 area cells, similar to prior. The right sphenoid sinus demonstrates mild to moderate mucosal thickening. There are bubbly secretions in the bilateral sphenoid sinuses, similar to prior. There is minimal fluid signal in the mastoid air cells, similar to prior. Bilateral ocular lens implants again incidentally noted. [facility] RADIOLOGY SYNGO Provider, [facility] - 05/17/2024 * * *Final Report* * * DATE OF EXAM: May 17 2024 11:06AM AWM [id number] - MRI BRAIN WO/W IVCON / PROCEDURE REASON: Metastatic cancer to brain (HCC) * * * * Physician Interpretation * * * * EXAMINATION: MRI BRAIN WO/W IVCON CLINICAL HISTORY: SAH (subarachnoid hemorrhage) (HCC) Nontraumatic subarachnoid hemorrhage (HCC) TECHNIQUE: MRI brain routine protocol was acquired before and after the intravenous and measures of gadolinium. COMPARISON: MRI brain 02/27/2024. RESULT: Acute Change: There is no evidence of an acute intracranial process. Hemorrhage: No evidence of prior parenchymal hemorrhage on the gradient echo images. Mass Lesion/ Mass Effect: The previously described ring-enhancing lesion involving the left. The white matter has improved. It currently measures approximately 2.2 x 2.3 x 3.0 cm in greatest AP, transverse, CC dimensions (previously 2.7 x 2.6 x 3.8 cm. There is improving surrounding mass effect. Previously noted surrounding T2/FLAIR signal are mildly also reveals mild interval improvement. The lesion again reveals peripheral susceptibility artifact in keeping with calcification. No new lesions identified. 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 Scattered patchy areas of increased T2 and FLAIR signal are present in the supratentorial white matter which is a nonspecific finding but likely represents mild chronic microvascular ischemia. Parenchyma: No significant volume loss for age. The brain parenchyma is otherwise within normal limits of signal intensity and morphology. Ventricles: Normal caliber and morphology. Skull Base: Hypothalamic and pituitary region are grossly normal. Craniocervical junction is normal. No significant marrow replacement process. Vasculature: Major intracranial arterial structures, and dural venous sinuses show typical flow void, suggesting patency by spin echo criteria. Other: The right maxillary sinus is again noted to be completely opacified. The scattered mucosal thickening throughout the S1 area cells, similar to prior. The right sphenoid sinus demonstrates mild to moderate mucosal thickening. There are bubbly secretions in the bilateral sphenoid sinuses, similar to prior. There is minimal fluid signal in the mastoid air cells, similar to prior. Bilateral ocular lens implants again incidentally noted. IMPRESSION IMPRESSION: The previously described metastatic deposit in the left. Frontal white matter has decreased in size. No new lesions identified. 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 Paranasal sinuses redemonstrate extensive chronic inflammatory changes as outlined above. Acid Operator: FLAVIO Transcribe Date/Time: May 17 2024 11:16A Dictated by : JOCELYN SHAFER MD This examination was interpreted and the report reviewed and electronically signed by: JOCELYN SHAFER MD on May 17 2024 11:22AM EST [facility] Radiology Study observation (narrative) [facility] MR Brain WO and W contrast I VOrdered By: [facility] Provider on 05-17-2024 [facility] Basophil percentageOrdered B y: Greg Sutherland on 03-09-2024 Chloride [Moles/Vol] 111 mmol/L 98-107 [facility] Glucose [Mass/Vol] 167 mg/dL 74-106 [facility] Comment on above: Fasting Glucose resu lt greater than or equal to 126 mg/dL suggests DIABETES MELLITUS per A.D.A. criteria. Hemoglobin (Bld) [Mass/Vol] 10.5 g/dL 13.0-16.5 [facility] Potassium [Moles/Vol] 4.0 mmol/L 3.5-5.1 [facility] Sodium [Moles/Vol] 138 mmol/L 136-145 [facility] WBC (Bld) [#/Vol] 8.6 10*3/uL 4.4-11.0 [facility] Determination of erythrocyte mean corpuscular volume (MCV)Ordered By: Greg Sutherland on 03-09-2024 MCV (RBC) [Entitic vol] 75.4 fL 80-94 [facility] Erythrocyte distribution wid th ratioOrdered By: Greg Sutherland on 03-09-2024 Erythrocyte distribution width (RBC) [Ratio] 19.0 % 11.6-14.6 [facility] Erythrocyte distribution wid th standard deviationOrdered By: Greg Sutherland on 03-09-2024 Erythrocyte distribution width (RBC) [Entitic vol] 50.0 fL 35.1-43.9 [facility] Hematocrit Auto (Bld) [Volum e fraction]Ordered By: Greg Sutherland on 03-09-2024 Hematocrit (Bld) [Volume fraction] 34.6 % 40-54 [facility] Laboratory - Chemistry and C hemistry - challengeOrdered By: Greg Sutherland on 03-09-2024 CO2 [Moles/Vol] 23.0 mmol/L 21.0-32.0 [facility] Urea nitrogen/Creatinine [Mass ratio] 15.7 mg/mg 10-20 [facility] Laboratory - Hematology and Cell countsOrdered By: Greg Sutherland on 03-09-2024 MCH (RBC) [Entitic mass] 22.9 pg 27.0-32.0 [facility] MCHC (RBC) [Mass/Vol] 30.3 g/dL 32-36 [facility] Platelet mean volume (Bld) [Entitic vol] 9.6 fL 6.2-12.0 [facility] Platelets (Bld) [#/Vol] 195 10*3/uL 150-450 [facility] No Panel InformationOrdered By: Greg Sutherland on 03-09-2024 Estimated Creatinine Clearance Calc 67.71 ml/min [facility] Estimated GFR (MDRD) Amer 87 mL/min >60 [facility] Comment on above: GFR Calc Estimated GFR (MDRD) Non-Af Amer 72 mL/min >60 [facility] Comment on above: Non- GFR Calc RBC Auto (Bld) [#/Vol]Ordere d By: Greg Sutherland on 03-09-2024 RBC (Bld) [#/Vol] 4.59 10*6/uL 4.6-6.2 [facility] Serum or plasma calcium deangelo urement (mass/volume)Ordered By: Greg Sutherland on 03-09-2024 Calcium [Mass/Vol] 8.5 mg/dL 8.5-10.1 [facility] Serum or plasma creatinine m easurement (mass/volume)Ordered By: Greg Sutherland on 03-09-2024 Creatinine [Mass/Vol] 1.08 mg/dL 0.70-1.30 [facility] Comment on above: The validity of the calculated GFR & GFRAA in patients over 70 years has not been determined. Clinical correlation is essential. Serum or plasma urea nitroge n measurement (mass/volume)Ordered By: Greg Sutherland on 03-09-2024 Urea nitrogen [Mass/Vol] 17 mg/dL 7-18 [facility] Thin prep Papanicolaou smear with manual screeningOrdered By: Greg Sutherland on 03-09-2024 Thin prep Papanicolaou smear with manual screening 4 5-15 [facility] Thin prep Papanicolaou smear with manual screeningOrdered By: Greg Sutherland on 03-08-2024 Thin prep Papanicolaou smear with manual screening 103 mg/dL 74-106 [facility] Comment on above: MANAGEMENT OF PATIEN T CARE PER NURSING PROTOCOL Absolute lymphocyte countOrd ered By: Angela Rodriguez on 03-02-2024 Lymphocytes Auto (Unsp spec) [#/Vol] 0.89 10*3/uL 0.83-4.51 [facility] Automated lymphocyte count a s percentage of total leukocytesOrdered By: Angela Nelsonjohn on 03-02-2024 Lymphocytes/100 WBC Auto (Unsp spec) 12.6 % 19-41 [facility] Basophil percentageOrdered B y: Angela Nelsonroman on 03-02-2024 Basophil percentage 3.1 mg/dL 2.5-4.9 [facility] Basophils/100 WBC (Bld) 0.6 % 0-1 [facility] Bilirubin [Mass/Vol] 0.40 mg/dL 0.20-1.00 [facility] Comment on above: For patients on eltr ombopag therapy, use of Dimension [place] TBIL is not recommended. Chloride [Moles/Vol] 113 mmol/L 98-107 [facility] Eosinophils/100 WBC (Bld) 2.0 % 0-5 [facility] Glucose [Mass/Vol] 110 mg/dL 74-106 [facility] Comment on above: Fasting Glucose resu lt from 100 to 125 mg/dL suggests IMPAIRED HOMEOSTASIS per A.D.A. criteria. Hemoglobin (Bld) [Mass/Vol] 10.1 g/dL 13.0-16.5 [facility] Monocytes/100 WBC (Bld) 8.6 % 0-10 [facility] Neutrophils (Bld) [#/Vol] 5.3 10*3/uL 2.0-7.7 [facility] Neutrophils/100 WBC (Bld) 74.8 % 47-70 [facility] Potassium [Moles/Vol] 3.6 mmol/L 3.5-5.1 [facility] Protein [Mass/Vol] 6.5 g/dL 6.4-8.2 [facility] Sodium [Moles/Vol] 140 mmol/L 136-145 [facility] WBC (Bld) [#/Vol] 7.1 10*3/uL 4.4-11.0 [facility] Determination of erythrocyte mean corpuscular volume (MCV)Ordered By: Angela Rodriguez on 03-02-2024 MCV (RBC) [Entitic vol] 73.5 fL 80-94 [facility] Erythrocyte distribution wid th ratioOrdered By: [facility] Michael on 03-02-2024 Erythrocyte distribution width (RBC) [Ratio] 17.4 % 11.6-14.6 [facility] Erythrocyte distribution wid th standard deviationOrdered By: [facility] Rodriguez on 03-02-2024 Erythrocyte distribution width (RBC) [Entitic vol] 45.9 fL 35.1-43.9 [facility] Hematocrit Auto (Bld) [Volum e fraction]Ordered By: [facility] Rodriguez on 03-02-2024 Hematocrit (Bld) [Volume fraction] 33.2 % 40-54 [facility] Immature granulocytes/100 WB C Auto (Bld)Ordered By: [facility] Rodriguez on 03-02-2024 Immature granulocytes/100 WBC (Bld) 1.400 % 0.0-0.9 [facility] Comment on above: IG% - Immature Granu locytes (promyelocytes, myelocytes and metamyelocytes) > 1% indicates that a LEFT SHIFT is Present. Iron measurement (mass/mass) Ordered By: Angela Rodriguez on 03-02-2024 Iron (Unsp spec) [Mass/Mass] 30 ug/dL 65-175 [facility] Laboratory - Chemistry and C hemistry - challengeOrdered By: [facility] Rodriguez on 03-02-2024 Albumin/Globulin [Mass ratio] 1.1 {ratio} 0.9-2.4 [facility] ALP [Catalytic activity/Vol] 53 U/L 45-117 [facility] ALT [Catalytic activity/Vol] 26 U/L 16-61 [facility] CO2 [Moles/Vol] 22.0 mmol/L 21.0-32.0 [facility] Ferritin [Mass/Vol] 23 ng/mL 26-388 [facility] Globulin (S) [Mass/Vol] 3.1 g/dL 2.2-4.2 [facility] Urea nitrogen/Creatinine [Mass ratio] 13.7 mg/mg 10-20 [facility] Laboratory - Hematology and Cell countsOrdered By: Angela Rodriguez on 03-02-2024 MCH (RBC) [Entitic mass] 22.3 pg 27.0-32.0 [facility] MCHC (RBC) [Mass/Vol] 30.4 g/dL 32-36 [facility] Nucleated RBC/100 WBC (Bld) [Ratio] 0 % 0-5 [facility] Platelet mean volume (Bld) [Entitic vol] 9.6 fL 6.2-12.0 [facility] Platelets (Bld) [#/Vol] 182 10*3/uL 150-450 [facility] No Panel InformationOrdered By: Angela Rodriguez on 03-02-2024 Estimated Creatinine Clearance Calc 72.09 ml/min [facility] Estimated GFR (MDRD) Amer 93 mL/min >60 [facility] Comment on above: GFR Calc Estimated GFR (MDRD) Non-Af Amer 77 mL/min >60 [facility] Comment on above: Non- GFR Calc Total Iron Binding Capacity 426 ug/dL 250-450 [facility] RBC Auto (Bld) [#/Vol]Ordere d By: Angela Rodriguez on 03-02-2024 RBC (Bld) [#/Vol] 4.52 10*6/uL 4.6-6.2 [facility] Serum or plasma calcium deangelo urement (mass/volume)Ordered By: Angela Rodriguez on 03-02-2024 Calcium [Mass/Vol] 8.6 mg/dL 8.5-10.1 [facility] Serum or plasma creatinine m easurement (mass/volume)Ordered By: Angela Rodriguez on 03-02-2024 Creatinine [Mass/Vol] 1.02 mg/dL 0.70-1.30 [facility] Comment on above: The validity of the calculated GFR & GFRAA in patients over 70 years has not been determined. Clinical correlation is essential. Serum or plasma iron saturat ion measurement (mass fraction)Ordered By: Angela Rodriguez on 03-02-2024 Iron saturation [Mass fraction] 7.0 % 15.0-55.0 [facility] Serum or plasma urea nitroge n measurement (mass/volume)Ordered By: Angela Rodriguez on 03-02-2024 Urea nitrogen [Mass/Vol] 14 mg/dL 7-18 [facility] Thin prep Papanicolaou smear with manual screeningOrdered By: Angela Rodriguez on 03-02-2024 Thin prep Papanicolaou smear with manual screening 3.4 g/dL 3.2-5.0 [facility] Thin prep Papanicolaou smear with manual screening 19 U/L 15-37 [facility] Thin prep Papanicolaou smear with manual screening 5 5-15 [facility] HIV 1 and HIV-2 antibody ass ay with HIV-1 p24 antigen detectionOrdered By: Greg Sutherland on 03-01-2024 HIV 1+2 Ab+HIV1 p24 Ag IA Ql Non-Reactive Nonreactive [facility] Laboratory - Chemistry and C hemistry - challengeOrdered By: Travon Lacey on 03-01-2024 Magnesium [Mass/Vol] 2.0 mg/dL 1.6-2.6 [facility] No Panel InformationOrdered By: Greg Sutherland on 03-01-2024 Hepatitis A Antibody Total Negative Negative [facility] Comment on above: Comment: The HAV tot al antibody assay detects both IgG andIgM but does not differentiate between them. A negativeresult suggests susceptibility to infection. A positiveresult could be due to vaccination, previously resolvedinfection or active infection. Testing for HAV IgM shouldbe performed if active HAV infection is suspected. [facility]offers profiles that will automatically reflex positive HAVtotal antibody results to IgM (e.g., panel #[id number] HAVAntibody w/ Rfx).Performed at: [address] [id number] Director: Jude Nur PhD, Phone: [phone] Hepatitis C Antibody Non-Reactive Nonreactive [facility] Comment on above: Non Reactive: < 0.8 Equivocal: >/= 0.8 to < 1.0 Reactive: >/= 1.0The CDC requires that a reactive/equivocal HCV antibody result be sent out for confirmation. HCV Quant by PCR testing. Nasal Screen MRSA/MSSA [facility] Serum hepatitis B virus surf xin antibody IgG detectionOrdered By: Greg Sutherland on 03-01-2024 HBV surface IgG Ql (S) Non-Reactive [facility] Comment on above: Non Reactive: Incons istent with immunity less than <10 mIU/mL Reactive: Consistent with immunity greater than or equal to 10 mIU/mL Whole blood hemoglobin A1c/t otal hemoglobin ratio (mass fraction)Ordered By: Greg Sutherland on 02-25-2024 HbA1c (Bld) [Mass fraction] 5.6 % 3.8-5.6 [facility] Comment on above: Normal < 5.7 % Predi abetic 5.7 - 6.4 % Diabetic >or= 6.5 % Please note range changes. MR Brain WO and W contrast I Von 02-15-2024 [facility] Lipid 1996 panelon Cholesterol [Mass/Vol] 141 mg/dL NINF - 200 mg/dL [facility] Cholesterol in HDL [Mass/Vol] 40 mg/dL 40 - 60 mg/dL [facility] Cholesterol in LDL [Mass/Vol] 76 mg/dL 0 - <100 [facility] Cholesterol.total/Chol esterol in HDL [Mass ratio] 4 {ratio} [facility] Comment on above: Ref Range: < 3 Low Risk for CHD 3-6 Mod Risk for CHD > 6 High Risk for CHD Triglyceride [Mass/Vol] 124 mg/dL NINF - 150 mg/dL [facility] Absolute lymphocyte countOrd ered By: Angela Rodriguez on 12-30-2023 Lymphocytes Auto (Unsp spec) [#/Vol] 0.84 10*3/uL 0.83-4.51 [facility] Automated lymphocyte count a s percentage of total leukocytesOrdered By: Angela Rodriguez on 12-30-2023 Lymphocytes/100 WBC Auto (Unsp spec) 12.1 % 19-41 [facility] Basophil percentageOrdered B y: Angela Rodriguez on 12-30-2023 Basophil percentage 2.7 mg/dL 2.5-4.9 [facility] Basophils/100 WBC (Bld) 0.7 % 0-1 [facility] Bilirubin [Mass/Vol] 0.50 mg/dL 0.20-1.00 [facility] Comment on above: For patients on eltr ombopag therapy, use of Dimension [place] TBIL is not recommended. Chloride [Moles/Vol] 114 mmol/L 98-107 [facility] Eosinophils/100 WBC (Bld) 1.3 % 0-5 [facility] Glucose [Mass/Vol] 122 mg/dL 74-106 [facility] Comment on above: Fasting Glucose resu lt from 100 to 125 mg/dL suggests IMPAIRED HOMEOSTASIS per A.D.A. criteria. Hemoglobin (Bld) [Mass/Vol] 10.9 g/dL 13.0-16.5 [facility] Monocytes/100 WBC (Bld) 8.3 % 0-10 [facility] Neutrophils (Bld) [#/Vol] 5.3 10*3/uL 2.0-7.7 [facility] Neutrophils/100 WBC (Bld) 75.9 % 47-70 [facility] Potassium [Moles/Vol] 3.9 mmol/L 3.5-5.1 [facility] Protein [Mass/Vol] 6.8 g/dL 6.4-8.2 [facility] Sodium [Moles/Vol] 141 mmol/L 136-145 [facility] WBC (Bld) [#/Vol] 7.0 10*3/uL 4.4-11.0 [facility] Determination of erythrocyte mean corpuscular volume (MCV)Ordered By: Angela Rodriguez on 12-30-2023 MCV (RBC) [Entitic vol] 77.3 fL 80-94 [facility] Erythrocyte distribution wid th ratioOrdered By: [facility] on 12-30-2023 Erythrocyte distribution width (RBC) [Ratio] 18.1 % 11.6-14.6 [facility] Erythrocyte distribution wid th standard deviationOrdered By: Angela Rodriguez on 12-30-2023 Erythrocyte distribution width (RBC) [Entitic vol] 50.3 fL 35.1-43.9 [facility] Hematocrit Auto (Bld) [Volum e fraction]Ordered By: Angela Rodriguez on 12-30-2023 Hematocrit (Bld) [Volume fraction] 35.4 % 40-54 [facility] Immature granulocytes/100 WB C Auto (Bld)Ordered By: Angela Rodriguez on 12-30-2023 Immature granulocytes/100 WBC (Bld) 1.700 % 0.0-0.9 [facility] Comment on above: IG% - Immature Granu locytes (promyelocytes, myelocytes and metamyelocytes) > 1% indicates that a LEFT SHIFT is Present. Laboratory - Chemistry and C hemistry - challengeOrdered By: Angela Rodriguez on 12-30-2023 Albumin/Globulin [Mass ratio] 1.1 {ratio} 0.9-2.4 [facility] ALP [Catalytic activity/Vol] 61 U/L 45-117 [facility] ALT [Catalytic activity/Vol] 23 U/L 16-61 [facility] CO2 [Moles/Vol] 22.0 mmol/L 21.0-32.0 [facility] Globulin (S) [Mass/Vol] 3.3 g/dL 2.2-4.2 [facility] Urea nitrogen/Creatinine [Mass ratio] 18.8 mg/mg 10-20 [facility] Laboratory - Hematology and Cell countsOrdered By: Angela Rodriguez on 12-30-2023 MCH (RBC) [Entitic mass] 23.8 pg 27.0-32.0 [facility] MCHC (RBC) [Mass/Vol] 30.8 g/dL 32-36 [facility] Nucleated RBC/100 WBC (Bld) [Ratio] 0 % 0-5 [facility] Platelet mean volume (Bld) [Entitic vol] 9.3 fL 6.2-12.0 [facility] Platelets (Bld) [#/Vol] 170 10*3/uL 150-450 [facility] No Panel InformationOrdered By: Angela Rodriguez on 12-30-2023 Estimated Creatinine Clearance Calc 71.76 ml/min [facility] Estimated GFR (MDRD) Amer 94 mL/min >60 [facility] Comment on above: GFR Calc Estimated GFR (MDRD) Non-Af Amer 78 mL/min >60 [facility] Comment on above: Non- GFR Calc RBC Auto (Bld) [#/Vol]Ordere d By: Angela Rodriguez on 12-30-2023 RBC (Bld) [#/Vol] 4.58 10*6/uL 4.6-6.2 [facility] Serum or plasma calcium deangelo urement (mass/volume)Ordered By: Angela Rodriguez on 12-30-2023 Calcium [Mass/Vol] 9.2 mg/dL 8.5-10.1 [facility] Serum or plasma creatinine m easurement (mass/volume)Ordered By: Angela Rodriguez on 12-30-2023 Creatinine [Mass/Vol] 1.01 mg/dL 0.70-1.30 [facility] Comment on above: The validity of the calculated GFR & GFRAA in patients over 70 years has not been determined. Clinical correlation is essential. Serum or plasma thyroid stim ulating hormone (TSH) measurement (units/volume)Ordered By: Angela Rodriguez on 12-30-2023 TSH Qn 2.09 uIU/mL 0.358-3.74 [facility] Serum or plasma urea nitroge n measurement (mass/volume)Ordered By: Angela Rodriguez on 12-30-2023 Urea nitrogen [Mass/Vol] 19 mg/dL 7-18 [facility] Thin prep Papanicolaou smear with manual screeningOrdered By: Angela Rodriguez on 12-30-2023 Thin prep Papanicolaou smear with manual screening 3.5 g/dL 3.2-5.0 [facility] Thin prep Papanicolaou smear with manual screening 12 U/L 15-37 [facility] Thin prep Papanicolaou smear with manual screening 5 5-15 [facility] Thin prep Papanicolaou smear with manual screening 1.05 ng/dL 0.76-1.46 [facility] Iron measurement (mass/mass) Ordered By: Angela Rodriguez on 12-09-2023 Iron (Unsp spec) [Mass/Mass] 35 ug/dL 65-175 [facility] Laboratory - Chemistry and C hemistry - challengeOrdered By: Angela Rodriguez on 12-09-2023 Cobalamin (Vitamin B12) [Mass/Vol] 310 pg/mL 211-911 [facility] Ferritin [Mass/Vol] 49 ng/mL 26-388 [facility] No Panel InformationOrdered By: Angela Rodriguez on 12-09-2023 Total Iron Binding Capacity 363 ug/dL 250-450 [facility] Serum or plasma iron saturat ion measurement (mass fraction)Ordered By: Angela Rodriguez on 12-09-2023 Iron saturation [Mass fraction] 9.6 % 15.0-55.0 [facility] Blood band neutrophil count as percentage of total leukocytesOrdered By: Angela Rodriguez on 11-18-2023 Band form neutrophils/100 WBC (Bld) 2 % 0-5 [facility] Blood lymphocytes/100 leukoc ytesOrdered By: Angela Rodriguez on 11-18-2023 Lymphocytes/100 WBC (Bld) 7 % 19-41 [facility] Blood metamyelocytes/100 meera kocytesOrdered By: Angela Rodriguez on 11-18-2023 Metamyelocytes/100 WBC (Bld) 1 % 0-1 [facility] Blood monocytes/100 leukocyt esOrdered By: Angela Rodriguez on 11-18-2023 Monocytes/100 WBC (Bld) 3 % 0-10 [facility] Blood segmented neutrophils/ 100 leukocytesOrdered By: Angela Rodriguez on 11-18-2023 Segmented neutrophils/100 WBC (Bld) 83 % 47-70 [facility] Laboratory - Hematology and Cell countsOrdered By: Angela Rodriguez on 11-18-2023 Myelocytes/100 WBC (Bld) 4 % High 0-0 [facility] No Panel InformationOrdered By: Angela Rodriguez on 11-18-2023 4 % High 0-0 [facility] Review by pathologistOrdered By: Angela Rodriguez on 11-18-2023 Pathologist review [place] (Unsp spec) [Interp] Reviewed [facility] Comment on above: Microcytic anemia.Cl inical correlation necessary.Duglas Martínez M.D. 11/19/23 Blood manual differential co mment interpretation (narrative result)Ordered By: Angela Rodriguez on 10-28-2023 Manual differential comment [place] (Bld) [Interp] COMMENT [facility] Comment on above: LYMPHOPENIA. Laboratory - Chemistry and C hemistry - challengeOrdered By: Angela Rodriguez on 10-28-2023 Magnesium [Mass/Vol] 2.2 mg/dL 1.6-2.6 [facility] No Panel InformationOrdered By: Angela Rodriguez on 10-28-2023 Free Triiodothyronine (T3) pg/dL 2.1 pg/mL Low 2.18-3.98 [facility] 2.1 pg/mL Low 2.18-3.98 [facility] MRI BRAIN WO/W IVCONon 10-19 MRI BRAIN WO/W IVCON * * *Final Report* * * DATE OF EXAM: Oct 19 2023 7:32PM MDM 0295 - MRI BRAIN WO/W IVCON / PROCEDURE REASON: C79.31-Metastatic cancer to brain (HCC) * * * * Physician Interpretation * * * * EXAMINATION: MRI BRAIN WO/W IVCON CLINICAL HISTORY: Metastatic cancer to brain (HCC) TECHNIQUE: Routine brain MRI protocol without and with contrast including diffusion images. MQ: [id number] Contrast: 20 mL Dotarem IV COMPARISON: MRI brain 08/04/2023 RESULT: Acute Change: There is no evidence of restricted diffusion to suggest an acute infarct. Hemorrhage: Susceptibility changes are seen within the left parietal metastatic lesion. Mass Lesion/ Mass Effect: There is a peripherally rim-enhancing mass within the left periatrial white matter which measures 3.7 cm in the craniocaudal dimension, previously measuring 3.1 cm in the same dimension. Interval progression of thickness of rim enhancement. Peripheral diffusion restriction abnormality is again noted and similar to prior exams. There has been interval increase in surrounding vasogenic edema within the left parietal and occipital lobes. There is associated effacement of the left atrium and occipital horn lateral ventricle. No midline shift. No new enhancing lesions. Chronic Change: The mild white matter is within normal limits of signal intensity for age. Parenchyma: There is mild generalized parenchymal volume loss. The brain parenchyma is otherwise within normal limits of signal intensity and morphology. Ventricles: Ventriculomegaly corresponds to the degree of parenchymal volume loss. Skull Base: Hypothalamic and pituitary region are grossly normal. Craniocervical junction is normal. No significant marrow replacement process. Vasculature: Major intracranial arterial structures, and dural venous sinuses show typical flow void, suggesting patency by spin echo criteria. Other: The visualized paranasal sinuses and mastoid air cells are clear. The orbits and extracranial soft tissues are unremarkable. IMPRESSION: Interval increase in size of a peripherally enhancing left periatrial mass with increased thickness of rim enhancement and progression of vasogenic edema. No new lesions are identified. Acid Operator: FLAVIO Transcribe Date/Time: Oct 20 2023 2:01P Dictated by : MARLENE PEREZ MD This examination was interpreted and the report reviewed and electronically signed by: MAU SYKES MD on Oct 20 2023 2:18PM EST [id number] Normal [facility] Absolute lymphocyte countOrd ered By: Khalif Horan on 10-18-2023 Lymphocytes Auto (Unsp spec) [#/Vol] 0.57 10*3/uL 0.83-4.51 [facility] Basophil percentageOrdered B y: Khalif Horan on 10-18-2023 Basophil percentage 0-5 SEEN /hpf 0-5 [facility] Basophils/100 WBC (Bld) 0.4 % 0-1 [facility] Chloride [Moles/Vol] 113 mmol/L 98-107 [facility] Eosinophils/100 WBC (Bld) 0.6 % 0-5 [facility] Glucose [Mass/Vol] 138 mg/dL 74-106 [facility] Comment on above: Fasting Glucose resu lt greater than or equal to 126 mg/dL suggests DIABETES MELLITUS per A.D.A. criteria. Neutrophils (Bld) [#/Vol] 6.3 10*3/uL 2.0-7.7 [facility] Neutrophils/100 WBC (Bld) 82.0 % 47-70 [facility] Potassium [Moles/Vol] 3.5 mmol/L 3.5-5.1 [facility] Sodium [Moles/Vol] 141 mmol/L 136-145 [facility] WBC (Bld) [#/Vol] 7.7 10*3/uL 4.4-11.0 [facility] Bilirubin Test strip Ql (U)O rdered By: Khalif Horan on 10-18-2023 Bilirubin Ql (U) Negative Negative [facility] Blood erythrocytes count (nu mber/volume)Ordered By: Khalif Horan on 10-18-2023 RBC (Bld) [#/Vol] 4.31 10*6/uL 4.6-6.2 [facility] Blood hemoglobin measurement (mass/volume)Ordered By: Khalif Horan on 10-18-2023 Hemoglobin (Bld) [Mass/Vol] 11.5 g/dL 13.0-16.5 [facility] Blood lymphocytes/100 leukoc ytesOrdered By: Khalif Horan on 10-18-2023 Lymphocytes/100 WBC (Bld) 7.4 % 19-41 [facility] Blood monocytes/100 leukocyt esOrdered By: Khalif Horan on 10-18-2023 Monocytes/100 WBC (Bld) 7.8 % 0-10 [facility] Blood platelet mean volumeOr dered By: Khalif Horan on 10-18-2023 Platelet mean volume (Bld) [Entitic vol] 9.4 fL 6.2-12.0 [facility] Determination of erythrocyte mean corpuscular volume (MCV)Ordered By: Khalif Horan on 10-18-2023 MCV (RBC) [Entitic vol] 81.9 fL 80-94 [facility] Glucose Glucometer (BldC) [M ass/Vol]Ordered By: Khalif Horan on 10-18-2023 Glucose [Mass/Vol] 122 mg/dL 74-106 [facility] Comment on above: MANAGEMENT OF PATIEN T CARE PER NURSING PROTOCOL Hematocrit Auto (Bld) [Volum e fraction]Ordered By: Khalif Horan on 10-18-2023 Hematocrit (Bld) [Volume fraction] 35.3 % 40-54 [facility] INR in Blood by Coagulation assayOrdered By: Khalif Horan on 10-18-2023 INR Coag (Bld) [Relative time] 1.0 {INR} [facility] Ketones Test strip Ql (U)Ord ered By: Khalif Horan on 10-18-2023 Ketones Ql (U) Negative Negative [facility] Laboratory - Chemistry and C hemistry - challengeOrdered By: Khalif Horan on 10-18-2023 CO2 [Moles/Vol] 24.0 mmol/L 21.0-32.0 [facility] Urea nitrogen/Creatinine [Mass ratio] 21.3 mg/mg 10- [facility] Laboratory - CoagulationOrde red By: Khalif Horan on 10-18-2023 aPTT Coag (Bld) [Time] 32.6 s 24.1-36.2 [facility] PT Coag (PPP) [Time] 13.3 s 11.7-14.9 [facility] Laboratory - Hematology and Cell countsOrdered By: Khalif Horan on 10-18-2023 Erythrocyte distribution width (RBC) [Entitic vol] 49.2 fL 35.1-43.9 [facility] Erythrocyte distribution width (RBC) [Ratio] 16.5 % 11.6-14.6 [facility] Immature granulocytes/100 WBC (Bld) 1.800 % 0.0-0.9 [facility] Comment on above: IG% - Immature Granu locytes (promyelocytes, myelocytes and metamyelocytes) > 1% indicates that a LEFT SHIFT is Present. MCH (RBC) [Entitic mass] 26.7 pg 27.0-32.0 [facility] Nucleated RBC/100 WBC (Bld) [Ratio] 0 % 0-5 [facility] MCHC Auto (RBC) [Mass/Vol]Or dered By: Khalif Horan on 10-18-2023 MCHC (RBC) [Mass/Vol] 32.6 g/dL 32-36 [facility] Mucus LM Ql (Urine sed)Order ed By: hKalif Horan on 10-18-2023 Mucus Ql (Urine sed) 0 SEEN /hpf [facility] Nitrite Test strip Ql (U)Ord ered By: Khalif Horan on 10-18-2023 Nitrite Ql (U) Negative Negative [facility] No Panel InformationOrdered By: Khalif Horan on 10-18-2023 Estimated GFR (MDRD) Amer 115 mL/min >60 [facility] Comment on above: GFR Calc Estimated GFR (MDRD) Non-Af Amer 95 mL/min >60 [facility] Comment on above: Non- GFR Calc Troponin I High Sensitivity 10 pg/mL 3.0-78.0 [facility] Comment on above: Please Note: [place] t Units and Gender Specific Reference Ranges. For more information see Policy Stat Procedure [place] High Sensitivity Troponin (TNIH) and attachments. Platelets bldOrdered By: Lashon Horan on 10-18-2023 Platelets (Bld) [#/Vol] 148 10*3/uL 150-450 [facility] Protein Test strip Ql (U)Ord ered By: Khalif Horan on 10-18-2023 Protein Ql (U) 15 mg/dl Negative [facility] Serum or plasma calcium deangelo urement (mass/volume)Ordered By: Khalif Horan on 10-18-2023 Calcium [Mass/Vol] 9.2 mg/dL 8.5-10.1 [facility] Serum or plasma creatinine m easurement (mass/volume)Ordered By: Khalif Horan on 10-18-2023 Creatinine [Mass/Vol] 0.84 mg/dL 0.70-1.30 [facility] Comment on above: The validity of the calculated GFR & GFRAA in patients over 70 years has not been determined. Clinical correlation is essential. Serum or plasma urea nitroge n measurement (mass/volume)Ordered By: Khalif Horan on 10-18-2023 Urea nitrogen [Mass/Vol] 18 mg/dL 7-18 [facility] Squamous epithelial cells de tection in urine sediment by light microscopyOrdered By: Khalif Horan on 10-18-2023 Epithelial cells.squamous LM Ql (Urine sed) 0 SEEN /hpf 0-5 [facility] Thin prep Papanicolaou smear with manual screeningOrdered By: Khalif Horan on 10-18-2023 Thin prep Papanicolaou smear with manual screening 4 5-15 [facility] Urine blood detectionOrdered By: Khalif Horan on 10-18-2023 RBC Ql (U) Negative Negative [facility] RBC Ql (U) 0 SEEN /hpf 0-5 [facility] Urine clarityOrdered By: Lashon Horan on 10-18-2023 Clarity (U) Clear Clear [facility] Urine color determinationOrd ered By: Khalif Horan on 10-18-2023 Color (U) Yellow Yellow [facility] Urine glucose detectionOrder ed By: Khalif Horan on 10-18-2023 Glucose Ql (U) Normal mg/dl Normal [facility] Urine leukocyte esterase det ection by dipstickOrdered By: Khalif Horan on 10-18-2023 Leukocyte esterase Test strip Ql (U) 25 /ul Negative [facility] Urine pHOrdered By: Khalif cunningham on 10-18-2023 pH (U) 6.5 [pH] 5.0 - 8.0 [facility] Urine sediment bacteria coun t by microscopy (number/high power field)Ordered By: Khalif Horan on 10-18-2023 Bacteria LM.HPF (Urine sed) [#/Area] 0 /[HPF] None Seen [facility] Urine specific gravity measu rementOrdered By: Khalif Horan on 10-18-2023 Specific gravity (U) [Rel density] 1.015 1.002-1.030 [facility] Urobilinogen Auto test strip Ql (U)Ordered By: Khalif Horan on 10-18-2023 Urobilinogen Ql (U) Normal mg/dl Normal [facility] Absolute lymphocyte countOrd ered By: [facility] 10-07-2023 Lymphocytes Auto (Unsp spec) [#/Vol] 0.82 10*3/uL 0.83-4.51 [facility] Basophil percentageOrdered B y: Angela Rodriguez on 10-07-2023 Basophil percentage 2.9 mg/dL 2.5-4.9 [facility] Basophils/100 WBC (Bld) 0.8 % 0-1 [facility] Bilirubin [Mass/Vol] 0.40 mg/dL 0.20-1.00 [facility] Comment on above: For patients on eltr ombopag therapy, use of Dimension [place] TBIL is not recommended. Chloride [Moles/Vol] 113 mmol/L 98-107 [facility] Eosinophils/100 WBC (Bld) 0.5 % 0-5 [facility] Glucose [Mass/Vol] 113 mg/dL 74-106 [facility] Comment on above: Fasting Glucose resu lt from 100 to 125 mg/dL suggests IMPAIRED HOMEOSTASIS per A.D.A. criteria. Neutrophils (Bld) [#/Vol] 4.9 10*3/uL 2.0-7.7 [facility] Neutrophils/100 WBC (Bld) 74.2 % 47-70 [facility] Potassium [Moles/Vol] 3.7 mmol/L 3.5-5.1 [facility] Protein [Mass/Vol] 6.7 g/dL 6.4-8.2 [facility] Sodium [Moles/Vol] 140 mmol/L 136-145 [facility] WBC (Bld) [#/Vol] 6.6 10*3/uL 4.4-11.0 [facility] Blood erythrocytes count (nu mber/volume)Ordered By: Angela Rodriguez on 10-07-2023 RBC (Bld) [#/Vol] 4.57 10*6/uL 4.6-6.2 [facility] Blood hemoglobin measurement (mass/volume)Ordered By: Angela Rodriguez on 10-07-2023 Hemoglobin (Bld) [Mass/Vol] 11.5 g/dL 13.0-16.5 [facility] Blood lymphocytes/100 leukoc ytesOrdered By: [facility] on 10-07-2023 Lymphocytes/100 WBC (Bld) 12.4 % 19-41 [facility] Blood monocytes/100 leukocyt esOrdered By: [facility] on 10-07-2023 Monocytes/100 WBC (Bld) 8.2 % 0-10 [facility] Blood platelet mean volumeOr dered By: Angela Rodriguez on 10-07-2023 Platelet mean volume (Bld) [Entitic vol] 9.0 fL 6.2-12.0 [facility] Determination of erythrocyte mean corpuscular volume (MCV)Ordered By: [facility] on 10-07-2023 MCV (RBC) [Entitic vol] 82.5 fL 80-94 [facility] Hematocrit Auto (Bld) [Volum e fraction]Ordered By: [facility] on 10-07-2023 Hematocrit (Bld) [Volume fraction] 37.7 % 40-54 [facility] Laboratory - Chemistry and C hemistry - challengeOrdered By: [facility] on 10-07-2023 ALP [Catalytic activity/Vol] 58 U/L 45-117 [facility] ALT [Catalytic activity/Vol] 25 U/L 16-61 [facility] CO2 [Moles/Vol] 21.0 mmol/L 21.0-32.0 [facility] Globulin (S) [Mass/Vol] 3.2 g/dL 2.2-4.2 [facility] Urea nitrogen/Creatinine [Mass ratio] 18.7 mg/mg 10-20 [facility] Laboratory - Hematology and Cell countsOrdered By: Angela Rodriguez on 10-07-2023 Erythrocyte distribution width (RBC) [Entitic vol] 49.7 fL 35.1-43.9 [facility] Erythrocyte distribution width (RBC) [Ratio] 16.8 % 11.6-14.6 [facility] Immature granulocytes/100 WBC (Bld) 3.900 % 0.0-0.9 [facility] Comment on above: IG% - Immature Granu locytes (promyelocytes, myelocytes and metamyelocytes) > 1% indicates that a LEFT SHIFT is Present. MCH (RBC) [Entitic mass] 25.2 pg 27.0-32.0 [facility] Nucleated RBC/100 WBC (Bld) [Ratio] 0 % 0-5 [facility] MCHC Auto (RBC) [Mass/Vol]Or dered By: Angela Rodriguez on 10-07-2023 MCHC (RBC) [Mass/Vol] 30.5 g/dL 32-36 [facility] No Panel InformationOrdered By: Angela Rodriguez on 10-07-2023 Estimated Creatinine Clearance Calc 65.71 ml/min [facility] Estimated GFR (MDRD) Amer 106 mL/min >60 [facility] Comment on above: GFR Calc Estimated GFR (MDRD) Non-Af Amer 88 mL/min >60 [facility] Comment on above: Non- GFR Calc Platelets bldOrdered By: Antoni Rodriguez on 10-07-2023 Platelets (Bld) [#/Vol] 162 10*3/uL 150-450 [facility] Serum or plasma albumin deangelo urement (mass/volume)Ordered By: Angela Rodriguez on 10-07-2023 Albumin [Mass/Vol] 3.5 g/dL 3.2-5.0 [facility] Serum or plasma albumin/glob ulin mass ratioOrdered By: Angela Rodriguez on 10-07-2023 Albumin/Globulin [Mass ratio] 1.1 {ratio} 0.9-2.4 [facility] Serum or plasma calcium deangelo urement (mass/volume)Ordered By: Angela Rodriguez on 10-07-2023 Calcium [Mass/Vol] 8.7 mg/dL 8.5-10.1 [facility] Serum or plasma creatinine m easurement (mass/volume)Ordered By: Angela Rodriguez on 10-07-2023 Creatinine [Mass/Vol] 0.91 mg/dL 0.70-1.30 [facility] Comment on above: The validity of the calculated GFR & GFRAA in patients over 70 years has not been determined. Clinical correlation is essential. Serum or plasma urea nitroge n measurement (mass/volume)Ordered By: Angela Rodriguez on 10-07-2023 Urea nitrogen [Mass/Vol] 17 mg/dL 7-18 [facility] Thin prep Papanicolaou smear with manual screeningOrdered By: Angela Rodriguez on 10-07-2023 Thin prep Papanicolaou smear with manual screening 14 U/L 15-37 [facility] Thin prep Papanicolaou smear with manual screening 6 5-15 [facility] Blood band neutrophil count as percentage of total leukocytesOrdered By: Angela Rodriguez on 09-16-2023 Band form neutrophils/100 WBC (Bld) 1 % 0-5 [facility] Blood lymphocytes/100 leukoc ytesOrdered By: Angela Rodriguez on 09-16-2023 Lymphocytes/100 WBC (Bld) 14 % 19-41 [facility] Blood metamyelocytes/100 meera kocytesOrdered By: Angela Rodriguez on 09-16-2023 Metamyelocytes/100 WBC (Bld) 3 % 0-1 [facility] Blood monocytes/100 leukocyt esOrdered By: Angela Rodriguez on 09-16-2023 Monocytes/100 WBC (Bld) 7 % 0-10 [facility] Blood platelet adequacy dete ction by light microscopyOrdered By: Angela Rodriguez on 09-16-2023 Platelets LM Ql (Bld) [facility] [facility] Blood segmented neutrophils/ 100 leukocytesOrdered By: Angela Rodriguez on 09-16-2023 Segmented neutrophils/100 WBC (Bld) 73 % 47-70 [facility] Iron measurement (mass/mass) Ordered By: Angela Rodriguez on 09-16-2023 Iron (Unsp spec) [Mass/Mass] 80 ug/dL 65-175 [facility] Laboratory - Chemistry and C hemistry - challengeOrdered By: Angela Rodriguez on 09-16-2023 Free T4 [Mass/Vol] 1.18 ng/dL 0.76-1.46 [facility] Laboratory - Hematology and Cell countsOrdered By: Angela Rodriguez on 09-16-2023 Myelocytes/100 WBC (Bld) 2 % 0-0 [facility] No Panel InformationOrdered By: Angela Rodriguez on 09-16-2023 Thyroid Stimulating Hormone (TSH) 2.26 uIU/mL 0.358-3.74 [facility] Total Iron Binding Capacity 331 ug/dL 250-450 [facility] RBC morphologyOrdered By: Ivonne Rodriguez on 09-16-2023 RBC morphology finding Nom (Bld) NORM C+C NORMAL NORM C&C [facility] Review by pathologistOrdered By: Angela Rodriguez on 09-16-2023 Pathologist review [place]in[place] (Unsp spec) [Interp] Reviewed [facility] Comment on above: Previous reported re sult: Samira rehman Edited by: REGINA on 09/17/23:1545Neutrophilic left shift.Normocytic anemia.Duglas Martínez M.D. 09/17/23 AMENDED REPORT 09/17/23 1545 PATH REV previously reported as: Samira rehman Serum or plasma ferritin samantha surement (mass/volume)Ordered By: Angela Rodriguez on 09-16-2023 Ferritin [Mass/Vol] 121 ng/mL 26-388 [facility] Serum or plasma iron saturat ion measurement (mass fraction)Ordered By: Angela Rodriguez on 09-16-2023 Iron saturation [Mass fraction] 24.2 % 15.0-55.0 [facility] Total cell countOrdered By: Angela Rodriguez on 09-16-2023 Cells counted Molgen (Bld/Tiss) [#] 100 MANUAL DIFF [facility] Absolute lymphocyte countOrd ered By: Angela Rodriguez on 08-26-2023 Lymphocytes Auto (Unsp spec) [#/Vol] 0.50 10*3/uL 0.83-4.51 [facility] Basophil percentageOrdered B y: Angela Rodriguez on 08-26-2023 Basophil percentage Not Reportable W [facility] Basophil percentage 1 % 0-5 [facility] Basophil percentage 2.9 mg/dL 2.5-4.9 [facility] Bilirubin [Mass/Vol] 0.80 mg/dL 0.20-1.00 [facility] Comment on above: For patients on eltr ombopag therapy, use of Dimension [place] TBIL is not recommended. Chloride [Moles/Vol] 110 mmol/L 98-107 [facility] Glucose [Mass/Vol] 143 mg/dL 74-106 [facility] Comment on above: Fasting Glucose resu lt greater than or equal to 126 mg/dL suggests DIABETES MELLITUS per A.D.A. criteria. Neutrophils (Bld) [#/Vol] 4.5 10*3/uL 2.0-7.7 [facility] Potassium [Moles/Vol] 3.5 mmol/L 3.5-5.1 [facility] Protein [Mass/Vol] 6.6 g/dL 6.4-8.2 [facility] Sodium [Moles/Vol] 138 mmol/L 136-145 [facility] WBC (Bld) [#/Vol] 5.6 10*3/uL 4.4-11.0 [facility] Blood band neutrophil count as percentage of total leukocytesOrdered By: Angela Rodriguez on 08-26-2023 Band form neutrophils/100 WBC (Bld) 2 % 0-5 [facility] Blood erythrocytes count (nu mber/volume)Ordered By: Angela Rodriguez on 08-26-2023 RBC (Bld) [#/Vol] 4.11 10*6/uL 4.6-6.2 [facility] Blood hemoglobin measurement (mass/volume)Ordered By: Angela Rodriguez on 08-26-2023 Hemoglobin (Bld) [Mass/Vol] 11.1 g/dL 13.0-16.5 [facility] Blood lymphocytes/100 leukoc ytesOrdered By: Angela Rodriguez on 08-26-2023 Lymphocytes/100 WBC (Bld) 9 % 19-41 [facility] Blood monocytes/100 leukocyt esOrdered By: Angela Rodriguez on 08-26-2023 Monocytes/100 WBC (Bld) 6 % 0-10 [facility] Blood platelet adequacy dete ction by light microscopyOrdered By: Angela Rodriguez on 08-26-2023 Platelets LM Ql (Bld) [facility] Blood platelet mean volumeOr dered By: Angela Rodriguez on 08-26-2023 Platelet mean volume (Bld) [Entitic vol] 8.4 fL 6.2-12.0 [facility] Blood promyelocytes/100 leuk ocytesOrdered By: Angela Rodriguez on 08-26-2023 Promyelocytes/100 WBC (Bld) 1 % 0-0 [facility] Blood segmented neutrophils/ 100 leukocytesOrdered By: [facility] on 08-26-2023 Segmented neutrophils/100 WBC (Bld) 79 % 47-70 [facility] Determination of erythrocyte mean corpuscular volume (MCV)Ordered By: Angela Rodriguez on 08-26-2023 MCV (RBC) [Entitic vol] 82.2 fL 80-94 [facility] Hematocrit Auto (Bld) [Volum e fraction]Ordered By: Angela Rodriguez on 08-26-2023 Hematocrit (Bld) [Volume fraction] 33.8 % 40-54 [facility] Laboratory - Chemistry and C hemistry - challengeOrdered By: [facility] on 08-26-2023 ALP [Catalytic activity/Vol] 69 U/L 45-117 [facility] ALT [Catalytic activity/Vol] 25 U/L 16-61 [facility] CO2 [Moles/Vol] 21.0 mmol/L 21.0-32.0 [facility] Globulin (S) [Mass/Vol] 3.6 g/dL 2.2-4.2 [facility] Urea nitrogen/Creatinine [Mass ratio] 16.4 mg/mg 10-20 [facility] Laboratory - Hematology and Cell countsOrdered By: [facility] on 08-26-2023 Erythrocyte distribution width (RBC) [Entitic vol] 48.2 fL 35.1-43.9 [facility] Erythrocyte distribution width (RBC) [Ratio] 16.2 % 11.6-14.6 [facility] MCH (RBC) [Entitic mass] 27.0 pg 27.0-32.0 [facility] Myelocytes/100 WBC (Bld) 3 % 0-0 [facility] MCHC Auto (RBC) [Mass/Vol]Or dered By: Angela Rodriguez on 08-26-2023 MCHC (RBC) [Mass/Vol] 32.8 g/dL 32-36 [facility] No Panel InformationOrdered By: Angela Rodriguez on 08-26-2023 Estimated Creatinine Clearance Calc 71.35 ml/min [facility] Estimated GFR (MDRD) Amer 114 mL/min >60 [facility] Comment on above: GFR Calc Estimated GFR (MDRD) Non-Af Amer 94 mL/min >60 [facility] Comment on above: Non- GFR Calc Platelets bldOrdered By: Antoni Rodriguez on 08-26-2023 Platelets (Bld) [#/Vol] 115 10*3/uL 150-450 [facility] RBC morphologyOrdered By: Ivonne Rodriguez on 08-26-2023 RBC morphology finding Nom (Bld) NORM C+C NORMAL NORM C&C [facility] Review by pathologistOrdered By: Angela Rodriguez on 08-26-2023 Pathologist review [place] (Unsp spec) [Interp] Reviewed [facility] Comment on above: Previous reported re sult: Samira rehman Edited by: VERITO on 08/28/23:1043Neutrophilic left shift.Normocytic anemia.Mild Thrombocytopenia.Clinical correlation necessary.Duglas Martínez M.D. 08/28/23 AMENDED REPORT 08/28/23 1043 PATH REV previously reported as: Samira rehman Serum or plasma albumin deangelo urement (mass/volume)Ordered By: Angela Rodriguez on 08-26-2023 Albumin [Mass/Vol] 3.0 g/dL 3.2-5.0 [facility] Serum or plasma albumin/glob ulin mass ratioOrdered By: Angela Rodriguez on 08-26-2023 Albumin/Globulin [Mass ratio] 0.8 {ratio} 0.9-2.4 [facility] Serum or plasma calcium deangelo urement (mass/volume)Ordered By: Angela Rodriguez on 08-26-2023 Calcium [Mass/Vol] 9.0 mg/dL 8.5-10.1 [facility] Serum or plasma creatinine m easurement (mass/volume)Ordered By: Angela Rodriguez on 08-26-2023 Creatinine [Mass/Vol] 0.85 mg/dL 0.70-1.30 [facility] Comment on above: The validity of the calculated GFR & GFRAA in patients over 70 years has not been determined. Clinical correlation is essential. Serum or plasma urea nitroge n measurement (mass/volume)Ordered By: Angela Rodriguez on 08-26-2023 Urea nitrogen [Mass/Vol] 14 mg/dL 05-26 [facility] Thin prep Papanicolaou smear with manual screeningOrdered By: [facility] on 08-26-2023 Thin prep Papanicolaou smear with manual screening 13 U/L [facility] Thin prep Papanicolaou smear with manual screening 7 03-23 [facility] Total cell countOrdered By: [facility] on 08-26-2023 Cells counted Molgen (Bld/Tiss) [#] 100 MANUAL DIFF [facility] Laboratory - Chemistry and C hemistry - challengeOrdered By: Angela Rodriguez on 08-05-2023 Free T4 [Mass/Vol] 0.98 ng/dL 0.76-1.46 [facility] Magnesium [Mass/Vol] 2.3 mg/dL 1.6-2.6 [facility] No Panel InformationOrdered By: Angela Rodriguez on 08-05-2023 Thyroid Stimulating Hormone (TSH) 1.20 uIU/mL 0.358-3.74 [facility] MRI BRAIN WO/W IVCONon 08-04 MRI BRAIN WO/W IVCON * * *Final Report* * * DATE OF EXAM: Aug 04 2023 11:17AM [facility] 0295 - MRI BRAIN WO/W IVCON / PROCEDURE REASON: Z85.89-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 * * * * Physician Interpretation * * * * COMPARISONS: MRI brain from 06/06/2023. HISTORY: Metastatic brain cancer. TECHNIQUE: MRI brain without and with contrast. MQ: MRBWOW_2 CONTRAST: 16 mL Dotarem [facility] IV. RESULT: MRI BRAIN: Acute abnormality: None. Stable treatment change for left periatrial metastasis with blood byproducts, FLAIR hyperintensity, halo of restricted diffusion with minimal peripheral enhancement outside restricted diffusion. 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 The restricted diffusion probably represents gelatinous/coagulative necrosis of surrounding brain. Faint stable enhancement at IAC apex without leptomeningeal enhancement and though of nonspecific significance, however, on subsequent disease special attention should be placed to exclude leptomeningeal carcinomatosis. Alternatively this enhancement may be Usha ganglion. Remaining sulci, gyri, ventricular system, CSF spaces, brain and love-white distinction are otherwise stable without any new abnormal FLAIR signal intensity, mass or enhancement to raise concern for additional parenchymal metastatic disease. Osseous structures and soft tissues are symmetrical and normal. Stable remaining sulci, gyri, ventricles, CSF spaces and brain. No evidence for any acute infarct/hemorrhage, mass effect or collections. Normal bones and skull base soft tissues. IMPRESSION: 1. Stable left periatrial tumor treatment change. 2. No imaging evidence for recurrent/residual neoplasm is identified. 3. Faint stable enhancement at apex of bilateral IAC. 4. No additional abnormal enhancement or leptomeningeal disease. 5. No acute intracranial abnormalities noted. Acid Operator: FLAVIO Transcribe Date/Time: Aug 04 2023 11:36A Dictated by : JESSICA SMITH MD This examination was interpreted and the report reviewed and electronically signed by: JESSICA SMITH MD on Aug 04 2023 11:44AM EST [id number] Normal [facility] NURSING PROGon 08-04-2023 NURSING PROG HNO ID: [id number] Author: Katharina Oliva RN Service: Nursing Author Type: Registered Nurse Type: Nursing Progress Note Filed: 08/04/2023 10:57 AM Note Text: Radiology Service Progress Note DATE OF SERVICE: August 04, 2023 TIME: 10:55 AM PATIENT IDENTITY VERIFICATION COMPLETED USING TWO (2) STANDARD IDENTIFIERS: Name and Date of confirmed by patient verbally and Name and Date of confirmed by identification band. FALL SCREENING: Has the patient had 2 falls in the last year or 1 fall with injury or currently using an Ambulatory Assistive Device (Walker, Cane, Wheelchair, Crutches, etc.)? No PATIENT GENDER DATA: Male ALLERGIES: Reviewed and unchanged CONTRAST ALLERGY: No EXAM: MRI - CONTRAST TYPE: GROUP II IV SITE: Ambulatory: A power injectable Mediport was accessed in the Right chest with a 0.75 inch 20 gauge needle. Blood Return, Flushed easily with normal saline, Good Blood Return Post Injection, and No Complications. Flushed with 20cc normal saline prior to deaccessing. IV SITE APPEARANCE: Clean,Dry and Intact SIGNATURE: Katharina Oliva RN PATIENT NAME: Kenn Arshad . DATE: August 04, 2023 TIME: 10:55 AM Normal [facility] Blood metamyelocytes/100 meera kocytesOrdered By: Angela Rodriguez on 07-15-2023 Metamyelocytes/100 WBC (Bld) 2 % 0-1 [facility] Blood polychromasia detectio n by light microscopyOrdered By: Angela Rodriguez on 07-08-2023 Polychromasia LM Ql (Bld) RARE [facility] Absolute lymphocyte countOrd ered By: Angela Rodriguez on 06-17-2023 Lymphocytes Auto (Unsp spec) [#/Vol] 0.55 10*3/uL 0.83-4.51 [facility] Basophil percentageOrdered B y: Angela Rodriguez on 06-17-2023 Basophil percentage Not Reportable [facility] Basophil percentage 4.0 mg/dL 2.5-4.9 [facility] Bilirubin [Mass/Vol] 0.80 mg/dL 0.20-1.00 [facility] Comment on above: For patients on eltr ombopag therapy, use of Dimension [place] TBIL is not recommended. Chloride [Moles/Vol] 106 mmol/L 98-107 [facility] Glucose [Mass/Vol] 114 mg/dL 74-106 [facility] Comment on above: Fasting Glucose resu lt from 100 to 125 mg/dL suggests IMPAIRED HOMEOSTASIS per A.D.A. criteria. Neutrophils (Bld) [#/Vol] 6.7 10*3/uL 2.0-7.7 [facility] Potassium [Moles/Vol] 4.1 mmol/L 3.5-5.1 [facility] Protein [Mass/Vol] 6.4 g/dL 6.4-8.2 [facility] Sodium [Moles/Vol] 137 mmol/L 136-145 [facility] WBC (Bld) [#/Vol] 7.9 10*3/uL 4.4-11.0 [facility] Blood band neutrophil count as percentage of total leukocytesOrdered By: Angela Rodriguez on 06-17-2023 Band form neutrophils/100 WBC (Bld) 1 % 0-5 [facility] Blood eosinophils/100 leukoc ytesOrdered By: Angela Rodriguez on 06-17-2023 Eosinophils/100 WBC (Bld) 1 % 0-5 [facility] Blood erythrocytes count (nu mber/volume)Ordered By: Angela Rodriguez on 06-17-2023 RBC (Bld) [#/Vol] 4.32 10*6/uL 4.6-6.2 [facility] Blood hemoglobin measurement (mass/volume)Ordered By: Angela Rodriguez on 06-17-2023 Hemoglobin (Bld) [Mass/Vol] 11.5 g/dL 13.0-16.5 [facility] Blood lymphocytes/100 leukoc ytesOrdered By: Angela Rodriguez on 06-17-2023 Lymphocytes/100 WBC (Bld) 7 % 19-41 [facility] Blood monocytes/100 leukocyt esOrdered By: Angela Rodriguez on 06-17-2023 Monocytes/100 WBC (Bld) 5 % 0-10 [facility] Blood platelet adequacy dete ction by light microscopyOrdered By: Angela Rodriguez on 06-17-2023 Platelets LM Ql (Bld) MKD DEC ADEQ [facility] Blood platelet mean volumeOr dered By: Angela Rodriguez on 06-17-2023 Platelet mean volume (Bld) [Entitic vol] 9.4 fL 6.2-12.0 [facility] Blood segmented neutrophils/ 100 leukocytesOrdered By: Angela Rodriguez on 06-17-2023 Segmented neutrophils/100 WBC (Bld) 84 % 47-70 [facility] Determination of erythrocyte mean corpuscular volume (MCV)Ordered By: Angela Rodriguez on 06-17-2023 MCV (RBC) [Entitic vol] 83.8 fL 80-94 [facility] Hematocrit Auto (Bld) [Volum e fraction]Ordered By: Angela Rodriguez on 06-17-2023 Hematocrit (Bld) [Volume fraction] 36.2 % 40-54 [facility] Laboratory - Chemistry and C hemistry - challengeOrdered By: Angela Rodriguez on 06-17-2023 ALP [Catalytic activity/Vol] 43 U/L 45-117 [facility] ALT [Catalytic activity/Vol] 29 U/L 16-61 [facility] CO2 [Moles/Vol] 22.0 mmol/L 21.0-32.0 [facility] Globulin (S) [Mass/Vol] 2.8 g/dL 2.2-4.2 [facility] Urea nitrogen/Creatinine [Mass ratio] 28.9 mg/mg 10-20 [facility] Laboratory - Hematology and Cell countsOrdered By: Angela Rodriguez on 06-17-2023 Anisocytosis Ql (Bld) 2+ [facility] Erythrocyte distribution width (RBC) [Entitic vol] 61.3 fL 35.1-43.9 [facility] Erythrocyte distribution width (RBC) [Ratio] 20.2 % 11.6-14.6 [facility] MCH (RBC) [Entitic mass] 26.6 pg 27.0-32.0 [facility] Myelocytes/100 WBC (Bld) 2 % 0-0 [facility] MCHC Auto (RBC) [Mass/Vol]Or dered By: Angela Rodriguez on 06-17-2023 MCHC (RBC) [Mass/Vol] 31.8 g/dL 32-36 [facility] Macrocytes detectionOrdered By: Angela Rodriguez on 06-17-2023 Macrocytes Ql (Bld) 1+ [facility] No Panel InformationOrdered By: Angela Rodriguez on 06-17-2023 Estimated Creatinine Clearance Calc 60.65 ml/min [facility] Estimated GFR (MDRD) Amer 130 mL/min >60 [facility] Comment on above: GFR Calc Estimated GFR (MDRD) Non-Af Amer 108 mL/min >60 [facility] Comment on above: Non- GFR Calc Platelets bldOrdered By: Antoni Rodriguez on 06-17-2023 Platelets (Bld) [#/Vol] 66 10*3/uL 150-450 [facility] Review by pathologistOrdered By: Angela Rodriguez on 06-17-2023 Pathologist review [place] (Unsp spec) [Interp] Reviewed [facility] Comment on above: Previous reported re sult: Samira rehman Edited by: RGOOD on 06/18/23:1015Normocytic anemia.Marked Thrombocytopenia.Jag Pickard D.O. 06/18/23 AMENDED REPORT 06/18/23 1015 PATH REV previously reported as: Samira rehman Serum or plasma albumin deangelo urement (mass/volume)Ordered By: Angela Rodriguez on 06-17-2023 Albumin [Mass/Vol] 3.6 g/dL 3.2-5.0 [facility] Serum or plasma albumin/glob ulin mass ratioOrdered By: Angela Rodriguez on 06-17-2023 Albumin/Globulin [Mass ratio] 1.3 {ratio} 0.9-2.4 [facility] Serum or plasma calcium deangelo urement (mass/volume)Ordered By: Angela Rodriguez on 06-17-2023 Calcium [Mass/Vol] 9.2 mg/dL 8.5-10.1 [facility] Serum or plasma creatinine m easurement (mass/volume)Ordered By: Angela Rodriguez on 06-17-2023 Creatinine [Mass/Vol] 0.76 mg/dL 0.70-1.30 [facility] Comment on above: The validity of the calculated GFR & GFRAA in patients over 70 years has not been determined. Clinical correlation is essential. Serum or plasma urea nitroge n measurement (mass/volume)Ordered By: Angela Rodriguez on 06-17-2023 Urea nitrogen [Mass/Vol] 22 mg/dL 7-18 [facility] Thin prep Papanicolaou smear with manual screeningOrdered By: Angela Rodriguez on 06-17-2023 Thin prep Papanicolaou smear with manual screening 1+ [facility] Thin prep Papanicolaou smear with manual screening 15 U/L 15-37 [facility] Thin prep Papanicolaou smear with manual screening 9 5-15 [facility] Total cell countOrdered By: Angela Rodriguez on 06-17-2023 Cells counted Molgen (Bld/Tiss) [#] 100 MANUAL DIFF [facility] MRI BRAIN WO/W IVCONon 06-06 MRI BRAIN WO/W IVCON * * *Final Report* * * DATE OF EXAM: Jun 06 2023 11:39AM [facility] 0295 - MRI BRAIN WO/W IVCON / PROCEDURE REASON: Z85.89-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 * * * * Physician Interpretation * * * * EXAMINATION: MRI BRAIN WO/W IVCON HISTORY: 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 MR perfusion study was performed of the entire brain following bolus intravenous administration of gadolinium utilizing dynamic susceptibility-weighted contrast-enhanced acquisition. MQ: MRBWOW_2 Contrast: 20 mL Dotarem IV COMPARISON: 04/16/2023 and 08/01/2021 RESULT: Acute Change: There is restricted diffusion surrounding the left posterior parietal lesion. Hemorrhage: There is increased magnetic susceptibility associated with the left posterior parietal lesion. There are no new areas of increased magnetic susceptibility to suggest new parenchymal hemorrhage. Mass Lesion/ Mass Effect: Once again there is a lesion in the left parietal arellano radiata demonstrating increased magnetic susceptibility with central enhancement as well as diffuse surrounding area of FLAIR hyperintensity and T1 hypointensity as well as ring of enhancement which measures up to 26 mm AP by 22 mm transverse by 31 mm craniocaudal with decreased thickness to the rim of enhancement and greater central T1 hypointensity. There is similar diffuse surrounding FLAIR hyperintensity in the right parietal lobe notably extending into the posterior right frontal lobe. The lesion measures approximately 11 mm and the peripheral enhancement. There is mild localized mass effect due to the vasogenic edema. There is near complete resolution of previously demonstrated increased cerebral blood volume associated with the lesion. Chronic Change: Scattered punctate foci of increased T2 and FLAIR signal are noted in the supratentorial white matter which is a nonspecific finding, but likely represents minimal chronic microvascular ischemia. Parenchyma: No significant volume loss for age. The brain parenchyma is otherwise within normal limits of signal intensity and morphology. Ventricles: Normal caliber and morphology. Skull Base: Hypothalamic and pituitary region are grossly normal. Craniocervical junction is normal. No significant marrow replacement process. Vasculature: Major intracranial arterial structures, and dural venous sinuses show typical flow void, suggesting patency by spin echo criteria. Other: There is mild thickening in the maxillary sinuses and mild to moderate mucosal thickening in the sphenoid air cells similar to that seen previously. The mastoid air cells are clear. The orbits and extracranial soft tissues are unremarkable. IMPRESSION: Stable size but improved halo of enhancement associated with the left parietal lesion and there is near complete resolution of increased perfusion. No evidence for new lesion or other significant interval change. Acid Operator: [facility] Transcribe Date/Time: Jun 06 2023 1:27P Dictated by : CHINTAN HALLMAN MD This examination was interpreted and the report reviewed and electronically signed by: CHINTAN HALLMAN MD on Jun 06 2023 1:44PM EST [id number] Normal [facility] Blood metamyelocytes/100 meera kocytesOrdered By: Angela Rodriguez on 05-27-2023 Metamyelocytes/100 WBC (Bld) 7 % 0-1 [facility] RBC morphologyOrdered By: Ivonne Rodriguez on 05-27-2023 RBC morphology finding Nom (Bld) N CHROM NORMAL NORM C&C [facility] Clostridium difficile detect ion by polymerase chain reactionOrdered By: Verónica Meadows on 05-21-2023 C. difficile DNA DAVID+probe Ql (Unsp spec) [facility] C. difficile DNA DAVID+probe Ql (Unsp spec) [facility] Stool enteric pathogen panel by probe and target amplification methodOrdered By: Verónica Meadows on 05-21-2023 Gastrointestinal pathogens panel DAVID+probe (Stl) [facility] Gastrointestinal pathogens panel DAVID+probe (Stl) [facility] Basophil percentageOrdered B y: Angela Rodriguez on 05-19-2023 Basophil percentage 1 % 0-5 [facility] Blood polychromasia detectio n by light microscopyOrdered By: Angela Rodriguez on 05-19-2023 Polychromasia LM Ql (Bld) 1+ [facility] Iron measurement (mass/mass) Ordered By: Verónica Meadows on 05-19-2023 Iron (Unsp spec) [Mass/Mass] 47 ug/dL 65-175 [facility] Laboratory - Chemistry and C hemistry - challengeOrdered By: Angela Rodriguez on 05-19-2023 Free T4 [Mass/Vol] 1.41 ng/dL 0.76-1.46 [facility] Laboratory - Chemistry and C hemistry - challengeOrdered By: Verónica Meadows on 05-19-2023 Magnesium [Mass/Vol] 1.5 mg/dL 1.6-2.6 [facility] No Panel InformationOrdered By: Angela Rodriguez on 05-19-2023 Thyroid Stimulating Hormone (TSH) 1.16 uIU/mL 0.358-3.74 [facility] No Panel InformationOrdered By: Verónica Meadows on 05-19-2023 Total Iron Binding Capacity 233 ug/dL 250-450 [facility] Serum or plasma ferritin samantha surement (mass/volume)Ordered By: Verónica Meadows on 05-19-2023 Ferritin [Mass/Vol] 958 ng/mL 26-388 [facility] Serum or plasma iron saturat ion measurement (mass fraction)Ordered By: Verónica Meadows on 05-19-2023 Iron saturation [Mass fraction] 20.2 % 15.0-55.0 [facility] Absolute lymphocyte countOrd ered By: Khalif Quevedo on 05-06-2023 Lymphocytes Auto (Unsp spec) [#/Vol] 0.36 10*3/uL 0.83-4.51 [facility] Basophil percentageOrdered B y: Khalif Quevedo on 05-06-2023 Basophil percentage Not Reportable [facility] Basophil percentage 2 % 0-5 [facility] Basophils (Bld) [#/Vol] 4.6 10*3/uL 4.4-11.0 [facility] Basophils (Bld) [#/Vol] 3.9 10*3/uL 2.0-7.7 [facility] Basophils/100 WBC (Bld) 2 % 0-5 [facility] Neutrophils (Bld) [#/Vol] 3.9 10*3/uL 2.0-7.7 [facility] WBC (Bld) [#/Vol] 4.6 10*3/uL 4.4-11.0 [facility] Blood band neutrophil count as percentage of total leukocytesOrdered By: Khalif Quevedo on 05-06-2023 Band form neutrophils/100 WBC (Bld) 1 % 0-5 [facility] Blood erythrocytes count (nu mber/volume)Ordered By: Khalif Quevedo on 05-06-2023 RBC (Bld) [#/Vol] 4.19 10*6/uL 4.6-6.2 [facility] Blood hemoglobin measurement (mass/volume)Ordered By: Khalif Quevedo on 05-06-2023 Hemoglobin (Bld) [Mass/Vol] 10.7 g/dL 13.0-16.5 [facility] Blood lymphocytes/100 leukoc ytesOrdered By: Khalif Quevedo on 05-06-2023 Lymphocytes/100 WBC (Bld) 8 % 19-41 [facility] Blood metamyelocytes/100 meera kocytesOrdered By: Khalif Quevedo on 05-06-2023 Metamyelocytes/100 WBC (Bld) 6 % 0-1 [facility] Blood platelet adequacy dete ction by light microscopyOrdered By: Khalif Quevedo on 05-06-2023 Platelets LM Ql (Bld) SLT DEC ADEQ [facility] Blood platelet mean volumeOr dered By: Khalif Quevedo on 05-06-2023 Platelet mean volume (Bld) [Entitic vol] 8.9 fL 6.2-12.0 [facility] Blood segmented neutrophils/ 100 leukocytesOrdered By: Khalif Quevedo on 05-06-2023 Segmented neutrophils/100 WBC (Bld) 84 % 47-70 [facility] Determination of erythrocyte mean corpuscular volume (MCV)Ordered By: Khalif Quevedo on 05-06-2023 MCV (RBC) [Entitic vol] 78.0 fL 80-94 [facility] Glucose Glucometer (BldC) [M ass/Vol]Ordered By: Khalif Quevedo on 05-06-2023 Glucose [Mass/Vol] 324 mg/dL 74-106 [facility] Comment on above: MANAGEMENT OF PATIEN T CARE PER NURSING PROTOCOL Hematocrit Auto (Bld) [Volum e fraction]Ordered By: Khalif Quevedo on 05-06-2023 Hematocrit (Bld) [Volume fraction] 32.7 % 40-54 [facility] Laboratory - Hematology and Cell countsOrdered By: Khalif Quevedo on 05-06-2023 Erythrocyte distribution width (RBC) [Entitic vol] 48.0 fL 35.1-43.9 [facility] Erythrocyte distribution width (RBC) [Ratio] 17.2 % 11.6-14.6 [facility] MCH (RBC) [Entitic mass] 25.5 pg 27.0-32.0 [facility] Myelocytes/100 WBC (Bld) 1 % 0-0 [facility] MCHC Auto (RBC) [Mass/Vol]Or dered By: Khalif Quevedo on 05-06-2023 MCHC (RBC) [Mass/Vol] 32.7 g/dL 32-36 [facility] No Panel InformationOrdered By: Khalif Quevedo on 05-06-2023 25.5 pg 27.0-32.0 [facility] 17.2 % 11.6-14.6 [facility] 48.0 fl 35.1-43.9 [facility] 1 % 0-0 [facility] Platelets bldOrdered By: Lashon Quevedo on 05-06-2023 Platelets (Bld) [#/Vol] 128 10*3/uL 150-450 [facility] RBC morphologyOrdered By: Azam Quevedo on 05-06-2023 RBC morphology finding Nom (Bld) NORM C+C NORMAL NORM C&C [facility] Review by pathologistOrdered By: Khalif Quevedo on 05-06-2023 Pathologist review [place] (Unsp spec) [Interp] Samira rehman [facility] Pathologist review [place] (Unsp spec) [Interp] Reviewed [facility] Comment on above: Previous reported re sult: Samira rehman Edited by: RGOOD on 05/07/23:1318Microcytic anemia.NRBCs are noted.Mild Thrombocytopenia.Clinical correlation necessary.Duglas Martínez M.D. 05/07/23 AMENDED REPORT 05/07/23 1318 PATH REV previously reported as: Samira rehman Total cell countOrdered By: Khalif Quevedo on 05-06-2023 Cells counted Molgen (Bld/Tiss) [#] 100 MANUAL DIFF [facility] Basophil percentageOrdered B y: Khalif Quevedo on 05-05-2023 Basophil percentage 252 mg/dL 74-106 [facility] Basophil percentage 138 mmol/L 136-145 [facility] Basophil percentage 3.9 mmol/L 3.5-5.1 [facility] Basophil percentage 113 mmol/L 98-107 [facility] Chloride [Moles/Vol] 113 mmol/L 98-107 [facility] Glucose [Mass/Vol] 252 mg/dL 74-106 [facility] Comment on above: Glucose result great er than or equal to 200 mg/dLsuggests DIABETES MELLITUS per A.D.A. criteria. Potassium [Moles/Vol] 3.9 mmol/L 3.5-5.1 [facility] Sodium [Moles/Vol] 138 mmol/L 136-145 [facility] Blood monocytes/100 leukocyt esOrdered By: Khalif Quevedo on 05-05-2023 Monocytes/100 WBC (Bld) 4 % 0-10 [facility] Laboratory - Chemistry and C hemistry - challengeOrdered By: Khalif Quevedo on 05-05-2023 CO2 [Moles/Vol] 17.0 mmol/L 21.0-32.0 [facility] Urea nitrogen/Creatinine [Mass ratio] 30.8 mg/mg 08-28 [facility] Laboratory - Hematology and Cell countsOrdered By: Khalif Quevedo on 05-05-2023 Anisocytosis Ql (Bld) 1+ [facility] No Panel InformationOrdered By: Khalif Quevedo on 05-05-2023 Estimated Creatinine Clearance Calc 64.52 ml/min [facility] Estimated GFR (MDRD) Amer 102 mL/min >60 [facility] Comment on above: GFR Calc Estimated GFR (MDRD) Non-Af Amer 84 mL/min >60 [facility] Comment on above: Non- GFR Calc 1+ [facility] 84 mL/min >60 [facility] 102 mL/min >60 [facility] 64.52 ml/min [facility] 30.8 RATIO 10 [facility] 17.0 mmol/L 21.0-32.0 [facility] Serum or plasma calcium deangelo urement (mass/volume)Ordered By: Khalif Quevedo on 05-05-2023 Calcium [Mass/Vol] 8.8 mg/dL 8.5-10.1 [facility] Serum or plasma creatinine m easurement (mass/volume)Ordered By: Khalif Quevedo on 05-05-2023 Creatinine [Mass/Vol] 0.94 mg/dL 0.70-1.30 [facility] Comment on above: The validity of the calculated GFR & GFRAA in patients over 70 years has not been determined. Clinical correlation is essential. Serum or plasma urea nitroge n measurement (mass/volume)Ordered By: Khalif Quevedo on 05-05-2023 Urea nitrogen [Mass/Vol] 29 mg/dL 7-18 [facility] Thin prep Papanicolaou smear with manual screeningOrdered By: Khalif Quevedo on 05-05-2023 Thin prep Papanicolaou smear with manual screening 1+ [facility] Thin prep Papanicolaou smear with manual screening 8 5-15 [facility] INR in Blood by Coagulation assayOrdered By: Travon Lacey on 05-04-2023 INR Coag (Bld) [Relative time] 1.2 {INR} [facility] Laboratory - CoagulationOrde red By: Travon Lacey on 05-04-2023 aPTT Coag (Bld) [Time] 38.0 s 24.1-36.2 [facility] PT Coag (PPP) [Time] 15.5 s 11.7-14.9 [facility] No Panel InformationOrdered By: Travon Lacey on 05-04-2023 15.5 SECONDS 11.7-14.9 [facility] 38.0 Seconds 24.1-36.2 [facility] Serum procalcitonin measurem entOrdered By: Benito Malcolm on 05-04-2023 Procalcitonin [Mass/Vol] 0.10 ng/mL 0.00-0.09 [facility] Comment on above: A procalcitonin (PCT ) level above 2.0 ng/mL on the first day of ICU admission is associated with a high risk for progression to severe sepsis and/or septic shock. A PCT level below 0.5 ng/mL on the first day of ICU admission is associated with a low risk for progression to severe and/or septic shock. Note: Concentrations <0.5 ng/mL do not exclude an infection on account of localized infections (without systemic signs) which can be associated with such low concentrations, or a systemic infection in its initial stages (<6 hours). Furthermore, increased procalcitonin can occur without infection. PCT concentrations between 0.5 and 2.0 ng/mL should be interpreted taking into account the patient's history. It is recommended to retest PCT within 6-24 hours if any concentrations <2 ng/mL are obtained. Basophil percentageOrdered B y: Tara Mae on 05-03-2023 Basophil percentage 5.8 g/dL 6.4-8.2 [facility] Basophil percentage 4.0 mg/dL 2.5-4.9 [facility] Basophil percentage 0.40 mg/dL 0.20-1.00 [facility] Bilirubin [Mass/Vol] 0.40 mg/dL 0.20-1.00 [facility] Comment on above: For patients on eltr ombopag therapy, use of Dimension [place] TBIL is not recommended. Protein [Mass/Vol] 5.8 g/dL 6.4-8.2 [facility] Blood basophils/100 leukocyt esOrdered By: Tara Mae on 05-03-2023 Basophils/100 WBC (Bld) 1 % 0-1 [facility] Gram stain for investigation of transfusion reactionOrdered By: Tara Mae on 05-03-2023 Microscopic observation Gram stain Nom (Unsp spec) [facility] Laboratory - Chemistry and C hemistry - challengeOrdered By: Tara Mae on 05-03-2023 ALP [Catalytic activity/Vol] 46 U/L 45-117 [facility] ALT [Catalytic activity/Vol] 23 U/L 16-61 [facility] Globulin (S) [Mass/Vol] 3.3 g/dL 2.2-4.2 [facility] Magnesium [Mass/Vol] 2.2 mg/dL 1.6-2.6 [facility] Lower GI hemoglobin IA Ql (S tl)Ordered By: Tara Mae on 05-03-2023 Stool Occult Blood (CRYSTAL) Positive [facility] Stool gastrointestinal hemoglobin detection by immunologic method Positive [facility] Microbial respiratory cultur eOrdered By: Tara Mae on 05-03-2023 Bacteria identified Respiratory culture Nom (Unsp spec) or Staphylococcus aureus isolated. [facility] No Panel InformationOrdered By: Tara Mae on 05-03-2023 Thyroid Stimulating Hormone (TSH) 0.67 uIU/mL 0.358-3.74 [facility] 3.3 g/dL 2.2-4.2 [facility] 46 U/L 45-117 [facility] 23 U/L 16-61 [facility] 2.2 mg/dL 1.6-2.6 [facility] 0.67 uIU/mL 0.358-3.74 [facility] Serum or plasma albumin deangelo urement (mass/volume)Ordered By: Tara Mae on 05-03-2023 Albumin [Mass/Vol] 2.5 g/dL 3.2-5.0 [facility] Serum or plasma albumin/glob ulin mass ratioOrdered By: Tara Mae on 05-03-2023 Albumin/Globulin [Mass ratio] 0.8 {ratio} 0.9-2.4 [facility] Thin prep Papanicolaou smear with manual screeningOrdered By: Tara Mae on 05-03-2023 Thin prep Papanicolaou smear with manual screening 30 U/L 15-37 [facility] Absolute lymphocyte countOrd ered By: Dr. Simon on 05-02-2023 Lymphocytes Auto (Unsp spec) [#/Vol] 0.44 10*3/uL 0.83-4.51 [facility] Basophil percentageOrdered B y: Dr. Simon on 05-02-2023 Basophil percentage Not Reportable [facility] Chloride [Moles/Vol] 104 mmol/L 98-107 [facility] Glucose [Mass/Vol] 169 mg/dL 74-106 [facility] Comment on above: Fasting Glucose resu lt greater than or equal to 126 mg/dL suggests DIABETES MELLITUS per A.D.A. criteria. Lactate [Moles/Vol] 1.8 mmol/L 0.4-2.0 [facility] Neutrophils (Bld) [#/Vol] 4.6 10*3/uL 2.0-7.7 [facility] Potassium [Moles/Vol] 3.7 mmol/L 3.5-5.1 [facility] Sodium [Moles/Vol] 132 mmol/L 136-145 [facility] WBC (Bld) [#/Vol] 5.5 10*3/uL 4.4-11.0 [facility] Basophil percentageOrdered B y: Indio Simon on 05-02-2023 Basophil percentage 1.8 mmol/L 0.4-2.0 [facility] Blood band neutrophil count as percentage of total leukocytesOrdered By: Dr. Simon on 05-02-2023 Band form neutrophils/100 WBC (Bld) 4 % 0-5 [facility] Blood erythrocytes count (nu mber/volume)Ordered By: Dr. Simon on 05-02-2023 RBC (Bld) [#/Vol] 4.49 10*6/uL 4.6-6.2 [facility] Blood hemoglobin measurement (mass/volume)Ordered By: Dr. Simon on 05-02-2023 Hemoglobin (Bld) [Mass/Vol] 11.4 g/dL 13.0-16.5 [facility] Blood lymphocytes/100 leukoc ytesOrdered By: Dr. Simon on 05-02-2023 Lymphocytes/100 WBC (Bld) 8 % 19-41 [facility] Blood metamyelocytes/100 meera kocytesOrdered By: Dr. Simon on 05-02-2023 Metamyelocytes/100 WBC (Bld) 3 % 0-1 [facility] Blood monocytes/100 leukocyt esOrdered By: Dr. Simon on 05-02-2023 Monocytes/100 WBC (Bld) 2 % 0-10 [facility] Blood platelet adequacy dete ction by light microscopyOrdered By: Dr. Simon on 05-02-2023 Platelets LM Ql (Bld) ADEQUATE ADEQ [facility] Blood platelet mean volumeOr dered By: Dr. Simon on 05-02-2023 Platelet mean volume (Bld) [Entitic vol] 9.6 fL 6.2-12.0 [facility] Blood segmented neutrophils/ [address]: [address] Simon on 05-02-2023 Segmented neutrophils/100 WBC (Bld) 79 % 47-70 [facility] COVID-19 virus antigen assay Ordered By: Dr. Simon on 05-02-2023 SARS-CoV-2 (COVID-19) Ag IA.rapid Ql (Resp) [facility] Determination of erythrocyte mean corpuscular volume (MCV)Ordered By: Dr. Simon on 05-02-2023 MCV (RBC) [Entitic vol] 77.7 fL 80-94 [facility] Hematocrit Auto (Bld) [Volum e fraction]Ordered By: Dr. Simon on 05-02-2023 Hematocrit (Bld) [Volume fraction] 34.9 % 40-54 [facility] Iron measurement (mass/mass) Ordered By: Tara Mae on 05-02-2023 Iron (Unsp spec) [Mass/Mass] 31 ug/dL 65-175 [facility] Laboratory - Chemistry and C hemistry - challengeOrdered By: Dr. Simon on 05-02-2023 CO2 [Moles/Vol] 19.0 mmol/L 21.0-32.0 [facility] Natriuretic peptide B (Bld) [Mass/Vol] 34.6 pg/mL 0-100 [facility] Urea nitrogen/Creatinine [Mass ratio] 18.6 mg/mg 10-20 [facility] Laboratory - Hematology and Cell countsOrdered By: Dr. Simon on 05-02-2023 Erythrocyte distribution width (RBC) [Entitic vol] 48.4 fL 35.1-43.9 [facility] Erythrocyte distribution width (RBC) [Ratio] 17.2 % 11.6-14.6 [facility] MCH (RBC) [Entitic mass] 25.4 pg 27.0-32.0 [facility] Myelocytes/100 WBC (Bld) 4 % 0-0 [facility] Laboratory - Microbiology an d Antimicrobial susceptibilityOrdered By: Indio Simon on 05-02-2023 Bacteria identified Cx Nom (Bld) No growth in 5 days. [facility] MCHC Auto (RBC) [Mass/Vol]Or dered By: Dr. Simon on 05-02-2023 MCHC (RBC) [Mass/Vol] 32.7 g/dL 32-36 [facility] No Panel InformationOrdered By: Dr. Simon on 05-02-2023 Estimated Creatinine Clearance Calc 62.52 ml/min [facility] Estimated GFR (MDRD) Amer 99 mL/min >60 [facility] Comment on above: GFR Calc Estimated GFR (MDRD) Non-Af Amer 82 mL/min >60 [facility] Comment on above: Non- GFR Calc Troponin I High Sensitivity 11 pg/mL 3.0-78.0 [facility] Comment on above: Please Note: [place] t Units and Gender Specific Reference Ranges. For more information see Policy Stat Procedure [place] High Sensitivity Troponin (TNIH) and attachments. No Panel InformationOrdered By: Tara Mae on 05-02-2023 Total Iron Binding Capacity 364 ug/dL 250-450 [facility] 364 ug/dL 250-450 [facility] No Panel InformationOrdered By: Indio Simon on 05-02-2023 11 pg/mL 3.0-78.0 [facility] 34.6 pg/mL 0-100 [facility] Platelets bldOrdered By: Dr. Simon on 05-02-2023 Platelets (Bld) [#/Vol] 105 10*3/uL 150-450 [facility] RBC morphologyOrdered By: Dr Stella Simon on 05-02-2023 RBC morphology finding Nom (Bld) NORM C+C NORMAL NORM C&C [facility] Review by pathologistOrdered By: Dr. Simon on 05-02-2023 Pathologist review [place] (Unsp spec) [Interp] May foll [facility] Serum or plasma calcium deangelo urement (mass/volume)Ordered By: Dr. Simon on 05-02-2023 Calcium [Mass/Vol] 8.9 mg/dL 8.5-10.1 [facility] Serum or plasma creatinine m easurement (mass/volume)Ordered By: Dr. Simon on 05-02-2023 Creatinine [Mass/Vol] 0.97 mg/dL 0.70-1.30 [facility] Comment on above: The validity of the calculated GFR & GFRAA in patients over 70 years has not been determined. Clinical correlation is essential. Serum or plasma ferritin samantha surement (mass/volume)Ordered By: Tara Mae on 05-02-2023 Ferritin [Mass/Vol] 969 ng/mL 26-388 [facility] Serum or plasma iron saturat ion measurement (mass fraction)Ordered By: Tara Mae on 05-02-2023 Iron saturation [Mass fraction] 8.5 % 15.0-55.0 [facility] Serum or plasma urea nitroge n measurement (mass/volume)Ordered By: Dr. Simon on 05-02-2023 Urea nitrogen [Mass/Vol] 18 mg/dL 7-18 [facility] Thin prep Papanicolaou smear with manual screeningOrdered By: Dr. Simon on 05-02-2023 Thin prep Papanicolaou smear with manual screening 9 5-15 [facility] Total cell countOrdered By: Dr. Simon on 05-02-2023 Cells counted Molgen (Bld/Tiss) [#] 100 MANUAL DIFF [facility] Whole blood hemoglobin A1c/t otal hemoglobin ratio (mass fraction)Ordered By: Tara Mae on 05-02-2023 HbA1c (Bld) [Mass fraction] 7.4 % 3.8-5.6 [facility] Comment on above: Normal < 5.7 % Predi abetic 5.7 - 6.4 % Diabetic >or= 6.5 % Please note range changes. Absolute lymphocyte countOrd ered By: Dr. Rodriguez on 04-28-2023 Lymphocytes Auto (Unsp spec) [#/Vol] 0.13 10*3/uL 0.83-4.51 [facility] Basophil percentageOrdered B y: Dr. Rodriguez on 04-28-2023 Basophil percentage Not Reportable [facility] Basophil percentage 1 % 0-5 [facility] Basophil percentage 2.3 mg/dL 2.5-4.9 [facility] Bilirubin [Mass/Vol] 0.50 mg/dL 0.20-1.00 [facility] Comment on above: For patients on eltr ombopag therapy, use of Dimension [place] TBIL is not recommended. Chloride [Moles/Vol] 104 mmol/L 98-107 [facility] Glucose [Mass/Vol] 205 mg/dL 74-106 [facility] Comment on above: Glucose result great er than or equal to 200 mg/dLsuggests DIABETES MELLITUS per A.D.A. criteria. Neutrophils (Bld) [#/Vol] 6.4 10*3/uL 2.0-7.7 [facility] Potassium [Moles/Vol] 4.0 mmol/L 3.5-5.1 [facility] Protein [Mass/Vol] 6.1 g/dL 6.4-8.2 [facility] Sodium [Moles/Vol] 133 mmol/L 136-145 [facility] WBC (Bld) [#/Vol] 6.8 10*3/uL 4.4-11.0 [facility] Basophil percentageOrdered B y: Angela Rodriguez on 04-28-2023 Basophil percentage 205 mg/dL 74-106 [facility] Basophil percentage 6.1 g/dL 6.4-8.2 [facility] Basophil percentage 0.50 mg/dL 0.20-1.00 [facility] Basophil percentage 133 mmol/L 136-145 [facility] Basophil percentage 4.0 mmol/L 3.5-5.1 [facility] Basophil percentage 104 mmol/L 98-107 [facility] Basophils (Bld) [#/Vol] 6.8 10*3/uL 4.4-11.0 [facility] Basophils (Bld) [#/Vol] 6.4 10*3/uL 2.0-7.7 [facility] Basophils/100 WBC (Bld) 1 % 0-5 [facility] Blood band neutrophil count as percentage of total leukocytesOrdered By: Dr. Rodriguez on 04-28-2023 Band form neutrophils/100 WBC (Bld) 5 % 0-5 [facility] Blood erythrocytes count (nu mber/volume)Ordered By: Dr. Rodriguez on 04-28-2023 RBC (Bld) [#/Vol] 4.65 10*6/uL 4.6-6.2 [facility] Blood hemoglobin measurement (mass/volume)Ordered By: Dr. Rodriguez on 04-28-2023 Hemoglobin (Bld) [Mass/Vol] 12.0 g/dL 13.0-16.5 [facility] Blood lymphocytes/100 leukoc ytesOrdered By: Dr. Rodriguez on 04-28-2023 Lymphocytes/100 WBC (Bld) 2 % 19-41 [facility] Blood metamyelocytes/100 meera kocytesOrdered By: Dr. Rodriguez on 04-28-2023 Metamyelocytes/100 WBC (Bld) 4 % 0-1 [facility] Blood monocytes/100 leukocyt esOrdered By: Dr. Rodriguez on 04-28-2023 Monocytes/100 WBC (Bld) 1 % 0-10 [facility] Blood platelet adequacy dete ction by light microscopyOrdered By: Dr. Rodriguez on 04-28-2023 Platelets LM Ql (Bld) SLT ADEQ [facility] Blood platelet mean volumeOr dered By: Dr. Rodriguez on 04-28-2023 Platelet mean volume (Bld) [Entitic vol] 9.2 fL 6.2-12.0 [facility] Blood segmented neutrophils/ [address]: [address] Rodriguez on 04-28-2023 Segmented neutrophils/100 WBC (Bld) 88 % 47-70 [facility] Determination of erythrocyte mean corpuscular volume (MCV)Ordered By: Dr. Rodriguez on 04-28-2023 MCV (RBC) [Entitic vol] 76.6 fL 80-94 [facility] Hematocrit Auto (Bld) [Volum e fraction]Ordered By: Dr. Rodriguez on 04-28-2023 Hematocrit (Bld) [Volume fraction] 35.6 % 40-54 [facility] Laboratory - Chemistry and C hemistry - challengeOrdered By: Dr. Rodriguez on 04-28-2023 ALP [Catalytic activity/Vol] 48 U/L 45-117 [facility] ALT [Catalytic activity/Vol] 24 U/L 16-61 [facility] CO2 [Moles/Vol] 20.0 mmol/L 21.0-32.0 [facility] Globulin (S) [Mass/Vol] 3.1 g/dL 2.2-4.2 [facility] Urea nitrogen/Creatinine [Mass ratio] 26.7 mg/mg 10-20 [facility] Laboratory - Hematology and Cell countsOrdered By: Dr. Rodriguez on 04-28-2023 Erythrocyte distribution width (RBC) [Entitic vol] 45.1 fL 35.1-43.9 [facility] Erythrocyte distribution width (RBC) [Ratio] 16.5 % 11.6-14.6 [facility] MCH (RBC) [Entitic mass] 25.8 pg 27.0-32.0 [facility] MCHC Auto (RBC) [Mass/Vol]Or dered By: Dr. Rodriguez on 04-28-2023 MCHC (RBC) [Mass/Vol] 33.7 g/dL 32-36 [facility] No Panel InformationOrdered By: Dr. Rodriguez on 04-28-2023 Estimated Creatinine Clearance Calc 70.52 ml/min [facility] Estimated GFR (MDRD) Amer 113 mL/min >60 [facility] Comment on above: GFR Calc Estimated GFR (MDRD) Non-Af Amer 93 mL/min >60 [facility] Comment on above: Non- GFR Calc No Panel InformationOrdered By: Angela Rodriguez on 04-28-2023 25.8 pg 27.0-32.0 [facility] 16.5 % 11.6-14.6 [facility] 45.1 fl 35.1-43.9 [facility] 93 mL/min >60 [facility] 113 mL/min >60 [facility] 70.52 ml/min [facility] 26.7 RATIO 10-20 [facility] 3.1 g/dL 2.2-4.2 [facility] 48 U/L 45-117 [facility] 24 U/L 16-61 [facility] 20.0 mmol/L 21.0-32.0 [facility] Platelets bldOrdered By: Dr. Rodriguez on 04-28-2023 Platelets (Bld) [#/Vol] 105 10*3/uL 150-450 [facility] RBC morphologyOrdered By: Dr Stella Rodriguez on 04-28-2023 RBC morphology finding Nom (Bld) N CHROM NORMAL NORM C&C [facility] Review by pathologistOrdered By: Dr. Rodriguez on 04-28-2023 Pathologist review [place] (Unsp spec) [Interp] Reviewed [facility] Comment on above: Previous reported re sult: Samira rehman Edited by: RGOOD on 04/30/23:1329Microcytic RBCs.Mild Thrombocytopenia.Clinical correlation suggested.Jag Pickard D.O. 04/30/23 AMENDED REPORT 04/30/23 1329 PATH REV previously reported as: March foll Serum or plasma albumin deangelo urement (mass/volume)Ordered By: Dr. Rodriguez on 04-28-2023 Albumin [Mass/Vol] 3.0 g/dL 3.2-5.0 [facility] Serum or plasma albumin/glob ulin mass ratioOrdered By: Dr. Rodriguez on 04-28-2023 Albumin/Globulin [Mass ratio] 1.0 {ratio} 0.9-2.4 [facility] Serum or plasma calcium deangelo urement (mass/volume)Ordered By: Dr. Rodriguez on 04-28-2023 Calcium [Mass/Vol] 8.8 mg/dL 8.5-10.1 [facility] Serum or plasma creatinine m easurement (mass/volume)Ordered By: Dr. Rodriguez on 04-28-2023 Creatinine [Mass/Vol] 0.86 mg/dL 0.70-1.30 [facility] Comment on above: The validity of the calculated GFR & GFRAA in patients over 70 years has not been determined. Clinical correlation is essential. Serum or plasma urea nitroge n measurement (mass/volume)Ordered By: Dr. Rodriguez on 04-28-2023 Urea nitrogen [Mass/Vol] 23 mg/dL 7-18 [facility] Thin prep Papanicolaou smear with manual screeningOrdered By: Dr. Rodriguez on 04-28-2023 Thin prep Papanicolaou smear with manual screening 1+ [facility] Thin prep Papanicolaou smear with manual screening 23 U/L 15-37 [facility] Thin prep Papanicolaou smear with manual screening 9 5-15 [facility] Total cell countOrdered By: Dr. Rodriguez on 04-28-2023 Cells counted Molgen (Bld/Tiss) [#] 100 MANUAL DIFF [facility] Basophil percentageOrdered B y: Dr. Rodriguez on 04-08-2023 Basophils/100 WBC (Bld) 0.3 % 0-1 [facility] Eosinophils/100 WBC (Bld) 0.1 % 0-5 [facility] Basophil percentageOrdered B y: Angela Rodriguez on 04-08-2023 Basophils/100 WBC (Bld) 0.1 % 0-5 [facility] Blood lymphocytes/100 leukoc ytesOrdered By: Dr. Rodriguez on 04-08-2023 Lymphocytes/100 WBC (Bld) 2.9 % 19-41 [facility] Blood monocytes/100 leukocyt esOrdered By: Dr. Rodriguez on 04-08-2023 Monocytes/100 WBC (Bld) 4.7 % 0-10 [facility] Laboratory - Hematology and Cell countsOrdered By: Dr. Rodriguez on 04-08-2023 Immature granulocytes/100 WBC (Bld) 4.400 % 0.0-0.9 [facility] Comment on above: IG% - Immature Granu locytes (promyelocytes, myelocytes and metamyelocytes) > 1% indicates that a LEFT SHIFT is Present. Nucleated RBC/100 WBC (Bld) [Ratio] 0 % 0-5 [facility] No Panel InformationOrdered By: Angela Rodriguez on 04-08-2023 4.400 % 0.0-0.9 [facility] 0 % 0-5 [facility] Absolute lymphocyte countOrd ered By: Dr. Pratt on 03-19-2023 Lymphocytes Auto (Unsp spec) [#/Vol] 0.72 10*3/uL 0.83-4.51 [facility] Basophil percentageOrdered B y: Eduard Pratt on 03-19-2023 Basophil percentage 104 mg/dL 74-106 [facility] Basophil percentage 138 mmol/L 136-145 [facility] Basophil percentage 3.5 mmol/L 3.5-5.1 [facility] Basophil percentage 109 mmol/L 98-107 [facility] Basophil percentage 0.5 mmol/L 0.4-2.0 [facility] Basophils (Bld) [#/Vol] 5.9 10*3/uL 4.4-11.0 [facility] Basophils (Bld) [#/Vol] 4.3 10*3/uL 2.0-7.7 [facility] Basophils/100 WBC (Bld) 72.5 % 47-70 [facility] Basophils/100 WBC (Bld) 3.6 % 0-5 [facility] Basophil percentageOrdered B y: Dr. Pratt on 03-19-2023 Basophils/100 WBC (Bld) 0.7 % 0-1 [facility] Chloride [Moles/Vol] 109 mmol/L 98-107 [facility] Eosinophils/100 WBC (Bld) 3.6 % 0-5 [facility] Glucose [Mass/Vol] 104 mg/dL 74-106 [facility] Comment on above: Fasting Glucose resu lt from 100 to 125 mg/dL suggests IMPAIRED HOMEOSTASIS per A.D.A. criteria. Lactate [Moles/Vol] 0.5 mmol/L 0.4-2.0 [facility] Neutrophils (Bld) [#/Vol] 4.3 10*3/uL 2.0-7.7 [facility] Neutrophils/100 WBC (Bld) 72.5 % 47-70 [facility] Potassium [Moles/Vol] 3.5 mmol/L 3.5-5.1 [facility] Sodium [Moles/Vol] 138 mmol/L 136-145 [facility] WBC (Bld) [#/Vol] 5.9 10*3/uL 4.4-11.0 [facility] Blood erythrocytes count (nu mber/volume)Ordered By: Dr. Pratt on 03-19-2023 RBC (Bld) [#/Vol] 4.27 10*6/uL 4.6-6.2 [facility] Blood hemoglobin measurement (mass/volume)Ordered By: Dr. Pratt on 03-19-2023 Hemoglobin (Bld) [Mass/Vol] 10.8 g/dL 13.0-16.5 [facility] Blood lymphocytes/100 leukoc ytesOrdered By: Dr. Pratt on 03-19-2023 Lymphocytes/100 WBC (Bld) 12.2 % 19-41 [facility] Blood monocytes/100 leukocyt esOrdered By: Dr. Pratt on 03-19-2023 Monocytes/100 WBC (Bld) 9.8 % 0-10 [facility] Blood platelet mean volumeOr dered By: Dr. Pratt on 03-19-2023 Platelet mean volume (Bld) [Entitic vol] 8.5 fL 6.2-12.0 [facility] Determination of erythrocyte mean corpuscular volume (MCV)Ordered By: Dr. Pratt on 03-19-2023 MCV (RBC) [Entitic vol] 79.9 fL 80-94 [facility] Hematocrit Auto (Bld) [Volum e fraction]Ordered By: Dr. Pratt on 03-19-2023 Hematocrit (Bld) [Volume fraction] 34.1 % 40-54 [facility] Laboratory - Chemistry and C hemistry - challengeOrdered By: Dr. Pratt on 03-19-2023 CO2 [Moles/Vol] 22.0 mmol/L 21.0-32.0 [facility] Urea nitrogen/Creatinine [Mass ratio] 13.6 mg/mg 10-20 [facility] Laboratory - Hematology and Cell countsOrdered By: Dr. Pratt on 03-19-2023 Erythrocyte distribution width (RBC) [Entitic vol] 47.7 fL 35.1-43.9 [facility] Erythrocyte distribution width (RBC) [Ratio] 16.6 % 11.6-14.6 [facility] Immature granulocytes/100 WBC (Bld) 1.200 % 0.0-0.9 [facility] Comment on above: IG% - Immature Granu locytes (promyelocytes, myelocytes and metamyelocytes) > 1% indicates that a LEFT SHIFT is Present. MCH (RBC) [Entitic mass] 25.3 pg 27.0-32.0 [facility] Nucleated RBC/100 WBC (Bld) [Ratio] 0 % 0-5 [facility] MCHC Auto (RBC) [Mass/Vol]Or dered By: Dr. Pratt on 03-19-2023 MCHC (RBC) [Mass/Vol] 31.7 g/dL 32-36 [facility] No Panel InformationOrdered By: Dr. Pratt on 03-19-2023 Estimated Creatinine Clearance Calc 68.92 ml/min [facility] Estimated GFR (MDRD) Amer 110 mL/min >60 [facility] Comment on above: GFR Calc Estimated GFR (MDRD) Non-Af Amer 91 mL/min >60 [facility] Comment on above: Non- GFR Calc No Panel InformationOrdered By: Eduard Pratt on 03-19-2023 25.3 pg 27.0-32.0 [facility] 16.6 % 11.6-14.6 [facility] 47.7 fl 35.1-43.9 [facility] 1.200 % 0.0-0.9 [facility] 0 % 0-5 [facility] 91 mL/min >60 [facility] 110 mL/min >60 [facility] 68.92 ml/min [facility] 13.6 RATIO 10-20 [facility] 22.0 mmol/L 21.0-32.0 [facility] Platelets bldOrdered By: Dr. Pratt on 03-19-2023 Platelets (Bld) [#/Vol] 212 10*3/uL 150-450 [facility] Serum or plasma calcium deangelo urement (mass/volume)Ordered By: Dr. Pratt on 03-19-2023 Calcium [Mass/Vol] 8.8 mg/dL 8.5-10.1 [facility] Serum or plasma creatinine m easurement (mass/volume)Ordered By: Dr. Pratt on 03-19-2023 Creatinine [Mass/Vol] 0.88 mg/dL 0.70-1.30 [facility] Comment on above: The validity of the calculated GFR & GFRAA in patients over 70 years has not been determined. Clinical correlation is essential. Serum or plasma prolactin me asurement (mass/volume)Ordered By: Dr. Pratt on 03-19-2023 Prolactin [Mass/Vol] 16.4 ng/mL [facility] Comment on above: NORMAL REFERENCE RAN GES FEMALE NON- 2.2 - 30.3 ng/mL 8.1 - 347.6 ng/mL POST-MENOPAUSAL 0.7 - 31.5 ng/mL MALE 2.5 - 17.4 ng/mL Serum or plasma urea nitroge n measurement (mass/volume)Ordered By: Dr. Pratt on 03-19-2023 Urea nitrogen [Mass/Vol] 12 mg/dL 7-18 [facility] Thin prep Papanicolaou smear with manual screeningOrdered By: Dr. Pratt on 03-19-2023 Thin prep Papanicolaou smear with manual screening 7 5-15 [facility] Absolute lymphocyte countOrd ered By: Dr. Rodriguez on 03-17-2023 Lymphocytes Auto (Unsp spec) [#/Vol] 0.85 10*3/uL 0.83-4.51 [facility] Basophil percentageOrdered B y: Dr. Rodriguez on 03-17-2023 Basophil percentage 3.5 mg/dL 2.5-4.9 [facility] Basophils/100 WBC (Bld) 0.7 % 0-1 [facility] Bilirubin [Mass/Vol] 0.40 mg/dL 0.20-1.00 [facility] Comment on above: For patients on eltr ombopag therapy, use of Dimension [place] TBIL is not recommended. Chloride [Moles/Vol] 111 mmol/L 98-107 [facility] Eosinophils/100 WBC (Bld) 4.0 % 0-5 [facility] Glucose [Mass/Vol] 104 mg/dL 74-106 [facility] Comment on above: Fasting Glucose resu lt from 100 to 125 mg/dL suggests IMPAIRED HOMEOSTASIS per A.D.A. criteria. Neutrophils (Bld) [#/Vol] 2.6 10*3/uL 2.0-7.7 [facility] Neutrophils/100 WBC (Bld) 60.7 % 47-70 [facility] Potassium [Moles/Vol] 3.4 mmol/L 3.5-5.1 [facility] Protein [Mass/Vol] 5.9 g/dL 6.4-8.2 [facility] Sodium [Moles/Vol] 139 mmol/L 136-145 [facility] WBC (Bld) [#/Vol] 4.3 10*3/uL 4.4-11.0 [facility] Blood erythrocytes count (nu mber/volume)Ordered By: Dr. Rodriguez on 03-17-2023 RBC (Bld) [#/Vol] 4.20 10*6/uL 4.6-6.2 [facility] Blood hemoglobin measurement (mass/volume)Ordered By: Dr. Rodriguez on 03-17-2023 Hemoglobin (Bld) [Mass/Vol] 10.8 g/dL 13.0-16.5 [facility] Blood lymphocytes/100 leukoc ytesOrdered By: Dr. Rodriguez on 03-17-2023 Lymphocytes/100 WBC (Bld) 20.0 % 19-41 [facility] Blood monocytes/100 leukocyt esOrdered By: Dr. oRdriguez on 03-17-2023 Monocytes/100 WBC (Bld) 13.2 % 0-10 [facility] Blood platelet mean volumeOr dered By: Dr. Rodriguez on 03-17-2023 Platelet mean volume (Bld) [Entitic vol] 8.9 fL 6.2-12.0 [facility] Determination of erythrocyte mean corpuscular volume (MCV)Ordered By: Dr. Rodriguez on 03-17-2023 MCV (RBC) [Entitic vol] 81.4 fL 80-94 [facility] Hematocrit Auto (Bld) [Volum e fraction]Ordered By: Dr. Rodriguez on 03-17-2023 Hematocrit (Bld) [Volume fraction] 34.2 % 40-54 [facility] Laboratory - Chemistry and C hemistry - challengeOrdered By: Dr. Rodriguez on 03-17-2023 ALP [Catalytic activity/Vol] 52 U/L 45-117 [facility] ALT [Catalytic activity/Vol] 18 U/L 16-61 [facility] CO2 [Moles/Vol] 21.0 mmol/L 21.0-32.0 [facility] Globulin (S) [Mass/Vol] 2.9 g/dL 2.2-4.2 [facility] Urea nitrogen/Creatinine [Mass ratio] 12.9 mg/mg 10-20 [facility] Laboratory - Hematology and Cell countsOrdered By: Dr. Rodriguez on 03-17-2023 Erythrocyte distribution width (RBC) [Entitic vol] 49.3 fL 35.1-43.9 [facility] Erythrocyte distribution width (RBC) [Ratio] 16.8 % 11.6-14.6 [facility] Immature granulocytes/100 WBC (Bld) 1.400 % 0.0-0.9 [facility] Comment on above: IG% - Immature Granu locytes (promyelocytes, myelocytes and metamyelocytes) > 1% indicates that a LEFT SHIFT is Present. MCH (RBC) [Entitic mass] 25.7 pg 27.0-32.0 [facility] Nucleated RBC/100 WBC (Bld) [Ratio] 0 % 0-5 [facility] Auto (RBC) [Mass/Vol]Or dered By: Dr. Rodriguez on 03-17-2023 MCHC (RBC) [Mass/Vol] 31.6 g/dL 32-36 [facility] No Panel InformationOrdered By: Dr. Rodriguez on 03-17-2023 Estimated Creatinine Clearance Calc 71.35 ml/min [facility] Estimated GFR (MDRD) Amer 115 mL/min >60 [facility] Comment on above: GFR Calc Estimated GFR (MDRD) Non-Af Amer 95 mL/min >60 [facility] Comment on above: Non- GFR Calc Platelets bldOrdered By: Dr. Rodriguez on 03-17-2023 Platelets (Bld) [#/Vol] 198 10*3/uL 150-450 [facility] Serum or plasma albumin deangelo urement (mass/volume)Ordered By: Dr. Rodriguez on 03-17-2023 Albumin [Mass/Vol] 3.0 g/dL 3.2-5.0 [facility] Serum or plasma albumin/glob ulin mass ratioOrdered By: Dr. Rodriguez on 03-17-2023 Albumin/Globulin [Mass ratio] 1.0 {ratio} 0.9-2.4 [facility] Serum or plasma calcium deangelo urement (mass/volume)Ordered By: Dr. Rodriguez on 03-17-2023 Calcium [Mass/Vol] 8.6 mg/dL 8.5-10.1 [facility] Serum or plasma creatinine m easurement (mass/volume)Ordered By: Dr. Rodriguez on 03-17-2023 Creatinine [Mass/Vol] 0.85 mg/dL 0.70-1.30 [facility] Comment on above: The validity of the calculated GFR & GFRAA in patients over 70 years has not been determined. Clinical correlation is essential. Serum or plasma urea nitroge n measurement (mass/volume)Ordered By: Dr. Rodriguez on 03-17-2023 Urea nitrogen [Mass/Vol] 11 mg/dL 7-18 [facility] Thin prep Papanicolaou smear with manual screeningOrdered By: Dr. Rodriguez on 03-17-2023 Thin prep Papanicolaou smear with manual screening 17 U/L 15-37 [facility] Thin prep Papanicolaou smear with manual screening 7 5-15 [facility] Basophil percentageOrdered B y: Angela Rodriguez on 03-10-2023 Basophil percentage 204 U/L 87-241 [facility] Basophil percentageOrdered B y: Dr. Rodriguez on 03-10-2023 LDH [Catalytic activity/Vol] 204 U/L 87-241 [facility] Hemoglobin in reticulocytes (mass per reticulocyte)Ordered By: Dr. Rodriguez on 03-10-2023 Hemoglobin (Reticulocytes) [Entitic mass] 27.8 pg Low 30-35 [facility] Iron measurement (mass/mass) Ordered By: Dr. Rodriguez on 03-10-2023 Iron (Unsp spec) [Mass/Mass] 37 ug/dL 65-175 [facility] Laboratory - Chemistry and C hemistry - challengeOrdered By: Dr. Rodriguez on 03-10-2023 Free T4 [Mass/Vol] 1.26 ng/dL 0.76-1.46 [facility] No Panel InformationOrdered By: Dr. Rodriguez on 03-10-2023 Immature Reticulocyte Fraction 23.80 % High 3.00-15.90 [facility] Reticulocyte Count 2.36 % High 0.5-1.5 [facility] Thyroid Stimulating Hormone (TSH) 0.96 uIU/mL 0.358-3.74 [facility] Total Iron Binding Capacity 254 ug/dL 250-450 [facility] No Panel InformationOrdered By: Angela Rodriguez on 03-10-2023 2.36 % High 0.5-1.5 [facility] 23.80 % High 3.00-15.90 [facility] 0.96 uIU/mL 0.358-3.74 [facility] 254 ug/dL 250-450 [facility] 1.26 ng/dL 0.76-1.46 [facility] Serum or plasma cortisol samantha surement (mass/volume)Ordered By: Dr. Rodriguez on 03-10-2023 Cortisol [Mass/Vol] 18.90 ug/dL 3.44-22.45 [facility] Comment on above: Adult (AM) 5.27 - 22 .45 ug/dL Adult (PM) 3.44 - 16.76 ug/dLPlease note revised CORTISOL reference range effective 2020. Serum or plasma ferritin samantha surement (mass/volume)Ordered By: Dr. Rodriguez on 03-10-2023 Ferritin [Mass/Vol] 315 ng/mL 26-388 [facility] Serum or plasma iron saturat ion measurement (mass fraction)Ordered By: Dr. Rodriguez on 03-10-2023 Iron saturation [Mass fraction] 14.6 % 15.0-55.0 [facility] Laboratory - Chemistry and C hemistry - challengeOrdered By: Dr. Rodriguez on 02-17-2023 Cobalamin (Vitamin B12) [Mass/Vol] 489 pg/mL [facility] No Panel InformationOrdered By: Angela Rodriguez on 02-17-2023 489 pg/mL [facility] Review by pathologistOrdered By: Dr. Rodriguez on 02-17-2023 Pathologist review [place] (Unsp spec) [Interp] Reviewed [facility] Comment on above: Pancytopenia.Leukope alfonso and Neutropenia.Microcytic anemia.Mild ThrombocytopeniaClinical correlation necessary.Duglas Martínez M.D. 02/19/23 Blood band neutrophil count as percentage of total leukocytesOrdered By: Dr. Rodriguez on 01-27-2023 Band form neutrophils/100 WBC (Bld) 2 % 0-5 [facility] Blood basophils/100 leukocyt esOrdered By: Dr. Rodriguez on 01-27-2023 Basophils/100 WBC (Bld) 1 % 0-1 [facility] Blood lymphocytes/100 leukoc ytesOrdered By: Dr. Rodriguez on 01-27-2023 Lymphocytes/100 WBC (Bld) 10 % 19-41 [facility] Blood metamyelocytes/100 meera kocytesOrdered By: Dr. Rodriguez on 01-27-2023 Metamyelocytes/100 WBC (Bld) 3 % 0-1 [facility] Blood monocytes/100 leukocyt esOrdered By: Dr. Rodriguez on 01-27-2023 Monocytes/100 WBC (Bld) 6 % 0-10 [facility] Blood platelet adequacy dete ction by light microscopyOrdered By: Dr. Rodriguez on 01-27-2023 Platelets LM Ql (Bld) ADEQUATE ADEQ [facility] Blood poikilocytosis detecti on by light microscopyOrdered By: Dr. Rodriguez on 01-27-2023 Poikilocytosis LM Ql (Bld) 1+ [facility] Blood segmented neutrophils/ [address]: [address] Rodriguez on 01-27-2023 Segmented neutrophils/100 WBC (Bld) 76 % 47-70 [facility] Laboratory - Hematology and Cell countsOrdered By: Dr. Rodriguez on 01-27-2023 Anisocytosis Ql (Bld) 1+ [facility] Myelocytes/100 WBC (Bld) 2 % 0-0 [facility] No Panel InformationOrdered By: Angela Rodriguez on 01-27-2023 2 % 0-0 [facility] 1+ [facility] Total cell countOrdered By: Dr. Rodriguez on 01-27-2023 Cells counted Molgen (Bld/Tiss) [#] 100 MANUAL DIFF [facility] Absolute lymphocyte countOrd ered By: Dr. Rodriguez on 01-06-2023 Lymphocytes Auto (Unsp spec) [#/Vol] 0.50 10*3/uL 0.83-4.51 [facility] Basophil percentageOrdered B y: Dr. Rodriguez on 01-06-2023 Basophil percentage Not Reportable W [facility] Basophil percentage 3.4 mg/dL 2.5-4.9 [facility] Bilirubin [Mass/Vol] 0.60 mg/dL 0.20-1.00 [facility] Comment on above: For patients on eltr ombopag therapy, use of Dimension [place] TBIL is not recommended. Chloride [Moles/Vol] 101 mmol/L 98-107 [facility] Cholesterol [Mass/Vol] 156 mg/dL <200 [facility] Comment on above: <200 mg/dL Desirable 200-240 mg/dL Borderline >240 mg/dL High Risk Glucose [Mass/Vol] 186 mg/dL 74-106 [facility] Comment on above: Fasting Glucose resu lt greater than or equal to 126 mg/dL suggests DIABETES MELLITUS per A.D.A. criteria. Neutrophils (Bld) [#/Vol] 8.8 10*3/uL 2.0-7.7 [facility] Potassium [Moles/Vol] 4.1 mmol/L 3.5-5.1 [facility] Protein [Mass/Vol] 6.5 g/dL 6.4-8.2 [facility] Sodium [Moles/Vol] 133 mmol/L 136-145 [facility] Triglyceride [Mass/Vol] 81 mg/dL <199 [facility] Comment on above: The drugs N-Acetylcy steine and Metamizole may falsely depress this assay.Serum Triglycerides Reference Interval Normal <150 mg/dL Borderline high 150 - 199 mg/dL High 200 - 499 mg/dL Very High > or = 500 mg/dL WBC (Bld) [#/Vol] 10.0 10*3/uL 4.4-11.0 [facility] Basophil percentageOrdered B y: Angela Rodriguez on 01-06-2023 Basophil percentage 156 mg/dL <200 [facility] Basophil percentage 81 mg/dL <199 [facility] Blood erythrocytes count (nu mber/volume)Ordered By: Dr. Rodriguez on 01-06-2023 RBC (Bld) [#/Vol] 4.26 10*6/uL 4.6-6.2 [facility] Blood hemoglobin measurement (mass/volume)Ordered By: Dr. Rodriguez on 01-06-2023 Hemoglobin (Bld) [Mass/Vol] 11.2 g/dL 13.0-16.5 [facility] Blood lymphocytes/100 leukoc ytesOrdered By: Dr. Rodriguez on 01-06-2023 Lymphocytes/100 WBC (Bld) 5 % 19-41 [facility] Blood metamyelocytes/100 meera kocytesOrdered By: Dr. Rodriguez on 01-06-2023 Metamyelocytes/100 WBC (Bld) 2 % 0-1 [facility] Blood monocytes/100 leukocyt esOrdered By: Dr. Rodriguez on 01-06-2023 Monocytes/100 WBC (Bld) 5 % 0-10 [facility] Blood platelet adequacy dete ction by light microscopyOrdered By: Dr. Rodriguez on 01-06-2023 Platelets LM Ql (Bld) ADEQUATE ADEQ [facility] Blood platelet mean volumeOr dered By: Dr. Rodriguez on 01-06-2023 Platelet mean volume (Bld) [Entitic vol] 9.5 fL 6.2-12.0 [facility] Blood segmented neutrophils/ [address]: [address] Rodriguez on 01-06-2023 Segmented neutrophils/100 WBC (Bld) 88 % 47-70 [facility] Determination of erythrocyte mean corpuscular volume (MCV)Ordered By: Dr. Rodriguez on 01-06-2023 MCV (RBC) [Entitic vol] 81.0 fL 80-94 [facility] Hematocrit Auto (Bld) [Volum e fraction]Ordered By: Dr. Rodriguez on 01-06-2023 Hematocrit (Bld) [Volume fraction] 34.5 % 40-54 [facility] Laboratory - Chemistry and C hemistry - challengeOrdered By: Dr. Rodriguez on 01-06-2023 ALP [Catalytic activity/Vol] 41 U/L 45-117 [facility] ALT [Catalytic activity/Vol] 46 U/L 16-61 [facility] CO2 [Moles/Vol] 22.0 mmol/L 21.0-32.0 [facility] Globulin (S) [Mass/Vol] 3.1 g/dL 2.2-4.2 [facility] Urea nitrogen/Creatinine [Mass ratio] 27.0 mg/mg 10-20 [facility] Laboratory - Hematology and Cell countsOrdered By: Dr. Rodriguez on 01-06-2023 Erythrocyte distribution width (RBC) [Entitic vol] 51.3 fL 35.1-43.9 [facility] Erythrocyte distribution width (RBC) [Ratio] 17.4 % 11.6-14.6 [facility] MCH (RBC) [Entitic mass] 26.3 pg 27.0-32.0 [facility] MCHC Auto (RBC) [Mass/Vol]Or dered By: Dr. Rodriguez on 01-06-2023 MCHC (RBC) [Mass/Vol] 32.5 g/dL 32-36 [facility] No Panel InformationOrdered By: Dr. Rodriguez on 01-06-2023 Estimated Creatinine Clearance Calc 76.72 ml/min [facility] Estimated GFR (MDRD) Amer 120 mL/min >60 [facility] Comment on above: GFR Calc Estimated GFR (MDRD) Non-Af Amer 100 mL/min >60 [facility] Comment on above: Non- GFR Calc Platelets bldOrdered By: Dr. Rodriguez on 01-06-2023 Platelets (Bld) [#/Vol] 77 10*3/uL 150-450 [facility] RBC morphologyOrdered By: Dr Stella Rodriguez on 01-06-2023 RBC morphology finding Nom (Bld) NORM C+C NORMAL NORM C&C [facility] Review by pathologistOrdered By: Dr. Rodriguez on 01-06-2023 Pathologist review [place] (Unsp spec) [Interp] Samira rehman [facility] Pathologist review [place] (Unsp spec) [Interp] Reviewed [facility] Comment on above: Previous reported re sult: Samira rehman Edited by: RGOOD on 01/08/23:0915Neutrophilic leukocytosis.Normocytic anemia.Thrombocytopenia.Clinical correlation necessary.Duglas Martínez M.D. 01/08/23 AMENDED REPORT 01/08/23 0915 PATH REV previously reported as: Samira rehman Serum or plasma albumin deangelo urement (mass/volume)Ordered By: Dr. Rodriguez on 01-06-2023 Albumin [Mass/Vol] 3.4 g/dL 3.2-5.0 [facility] Serum or plasma albumin/glob ulin mass ratioOrdered By: Dr. Rodriguez on 01-06-2023 Albumin/Globulin [Mass ratio] 1.1 {ratio} 0.9-2.4 [facility] Serum or plasma calcium deangelo urement (mass/volume)Ordered By: Dr. Rodriguez on 01-06-2023 Calcium [Mass/Vol] 9.0 mg/dL 8.5-10.1 [facility] Serum or plasma cholesterol in HDL measurement (mass/volume)Ordered By: Dr. Rodriguez on 01-06-2023 Cholesterol in HDL [Mass/Vol] 78 mg/dL >40 [facility] Comment on above: The drugs N-Acetylcy steine and Metamizole may falsely depress this assay. Reference Range HDL <40 mg/dL Low HDL Cholesterol HDL >or= 60 mg/dL High HDL Cholesterol Serum or plasma cholesterol in VLDL measurement (mass/volume)Ordered By: Dr. Rodriguez on 01-06-2023 Cholesterol in VLDL [Mass/Vol] 16 mg/dL 5-40 [facility] Serum or plasma creatinine m easurement (mass/volume)Ordered By: Dr. Rodriguez on 01-06-2023 Creatinine [Mass/Vol] 0.82 mg/dL 0.70-1.30 [facility] Comment on above: The validity of the calculated GFR & GFRAA in patients over 70 years has not been determined. Clinical correlation is essential. Serum or plasma low density lipoprotein (LDL) cholesterol measurement (mass/volume)Ordered By: Dr. Rodriguez on 01-06-2023 Cholesterol in LDL [Mass/Vol] 62 mg/dL 0-130 [facility] Serum or plasma urea nitroge n measurement (mass/volume)Ordered By: Dr. Rodriguez on 01-06-2023 Urea nitrogen [Mass/Vol] 22 mg/dL 7-18 [facility] Thin prep Papanicolaou smear with manual screeningOrdered By: Dr. Rodriguez on 01-06-2023 Thin prep Papanicolaou smear with manual screening 17 U/L 15-37 [facility] Thin prep Papanicolaou smear with manual screening 10 5-15 [facility] Total cell countOrdered By: Dr. Rodriguez on 01-06-2023 Cells counted Molgen (Bld/Tiss) [#] 100 MANUAL DIFF [facility] Absolute lymphocyte countOrd ered By: Dr. Rodriguez on 12-16-2022 Lymphocytes Auto (Unsp spec) [#/Vol] 0.84 10*3/uL 0.83-4.51 [facility] Basophil percentageOrdered B y: Dr. Rodriguez on 12-16-2022 Basophil percentage 3.6 mg/dL 2.5-4.9 [facility] Basophils/100 WBC (Bld) 0.6 % 0-1 [facility] Bilirubin [Mass/Vol] 0.80 mg/dL 0.20-1.00 [facility] Comment on above: For patients on eltr ombopag therapy, use of Dimension [place] TBIL is not recommended. Chloride [Moles/Vol] 111 mmol/L 98-107 [facility] Eosinophils/100 WBC (Bld) 3.9 % 0-5 [facility] Glucose [Mass/Vol] 111 mg/dL 74-106 [facility] Comment on above: Fasting Glucose resu lt from 100 to 125 mg/dL suggests IMPAIRED HOMEOSTASIS per A.D.A. criteria. Neutrophils (Bld) [#/Vol] 3.4 10*3/uL 2.0-7.7 [facility] Neutrophils/100 WBC (Bld) 66.6 % 47-70 [facility] Potassium [Moles/Vol] 3.9 mmol/L 3.5-5.1 [facility] Protein [Mass/Vol] 6.9 g/dL 6.4-8.2 [facility] Sodium [Moles/Vol] 141 mmol/L 136-145 [facility] WBC (Bld) [#/Vol] 5.2 10*3/uL 4.4-11.0 [facility] Blood erythrocytes count (nu mber/volume)Ordered By: Dr. Rodriguez on 12-16-2022 RBC (Bld) [#/Vol] 3.80 10*6/uL 4.6-6.2 [facility] Blood hemoglobin measurement (mass/volume)Ordered By: Dr. Rodriguez on 12-16-2022 Hemoglobin (Bld) [Mass/Vol] 9.9 g/dL 13.0-16.5 [facility] Blood lymphocytes/100 leukoc ytesOrdered By: Dr. Rodriguez on 12-16-2022 Lymphocytes/100 WBC (Bld) 16.3 % 19-41 [facility] Blood monocytes/100 leukocyt esOrdered By: Dr. Rodriguez on 12-16-2022 Monocytes/100 WBC (Bld) 9.3 % 0-10 [facility] Blood platelet mean volumeOr dered By: Dr. Rodriguez on 12-16-2022 Platelet mean volume (Bld) [Entitic vol] 8.6 fL 6.2-12.0 [facility] Determination of erythrocyte mean corpuscular volume (MCV)Ordered By: Dr. Rodriguez on 12-16-2022 MCV (RBC) [Entitic vol] 82.1 fL 80-94 [facility] Hematocrit Auto (Bld) [Volum e fraction]Ordered By: Dr. Rodriguez on 12-16-2022 Hematocrit (Bld) [Volume fraction] 31.2 % 40-54 [facility] Iron measurement (mass/mass) Ordered By: Verónica Meadows on 12-16-2022 Iron (Unsp spec) [Mass/Mass] 52 ug/dL 65-175 [facility] Laboratory - Chemistry and C hemistry - challengeOrdered By: Dr. Rodriguez on 12-16-2022 ALP [Catalytic activity/Vol] 52 U/L 45-117 [facility] ALT [Catalytic activity/Vol] 21 U/L 16-61 [facility] CO2 [Moles/Vol] 22.0 mmol/L 21.0-32.0 [facility] Free T4 [Mass/Vol] 1.15 ng/dL 0.76-1.46 [facility] Globulin (S) [Mass/Vol] 3.4 g/dL 2.2-4.2 [facility] Urea nitrogen/Creatinine [Mass ratio] 11.9 mg/mg 10-20 [facility] Laboratory - Hematology and Cell countsOrdered By: Dr. Rodriguez on 12-16-2022 Erythrocyte distribution width (RBC) [Entitic vol] 50.4 fL 35.1-43.9 [facility] Erythrocyte distribution width (RBC) [Ratio] 17.1 % 11.6-14.6 [facility] Immature granulocytes/100 WBC (Bld) 3.300 % 0.0-0.9 [facility] Comment on above: IG% - Immature Granu locytes (promyelocytes, myelocytes and metamyelocytes) > 1% indicates that a LEFT SHIFT is Present. MCH (RBC) [Entitic mass] 26.1 pg 27.0-32.0 [facility] Nucleated RBC/100 WBC (Bld) [Ratio] 0 % 0-5 [facility] MCHC Auto (RBC) [Mass/Vol]Or dered By: Dr. Rodriguez on 12-16-2022 MCHC (RBC) [Mass/Vol] 31.7 g/dL 32-36 [facility] No Panel InformationOrdered By: Dr. Rodriguez on 12-16-2022 Estimated Creatinine Clearance Calc 57.72 ml/min [facility] Estimated GFR (MDRD) Amer 86 mL/min >60 [facility] Comment on above: GFR Calc Estimated GFR (MDRD) Non-Af Amer 71 mL/min >60 [facility] Comment on above: Non- GFR Calc Thyroid Stimulating Hormone (TSH) 1.01 uIU/mL 0.358-3.74 [facility] No Panel InformationOrdered By: Verónica Meadows on 12-16-2022 Total Iron Binding Capacity 325 ug/dL 250-450 [facility] Platelets bldOrdered By: Dr. Rodriguez on 12-16-2022 Platelets (Bld) [#/Vol] 248 10*3/uL 150-450 [facility] Serum or plasma albumin deangelo urement (mass/volume)Ordered By: Dr. Rodriguez on 12-16-2022 Albumin [Mass/Vol] 3.5 g/dL 3.2-5.0 [facility] Serum or plasma albumin/glob ulin mass ratioOrdered By: Dr. Rodriguez on 12-16-2022 Albumin/Globulin [Mass ratio] 1.0 {ratio} 0.9-2.4 [facility] Serum or plasma calcium deangelo urement (mass/volume)Ordered By: Dr. Rodriguez on 12-16-2022 Calcium [Mass/Vol] 9.3 mg/dL 8.5-10.1 [facility] Serum or plasma cortisol samantha surement (mass/volume)Ordered By: Dr. Rodriguez on 12-16-2022 Cortisol [Mass/Vol] 19.70 ug/dL 3.44-22.45 [facility] Comment on above: Adult (AM) 5.27 - 22 .45 ug/dL Adult (PM) 3.44 - 16.76 ug/dLPlease note revised CORTISOL reference range effective 2020. Serum or plasma creatinine m easurement (mass/volume)Ordered By: Dr. Rodriguez on 12-16-2022 Creatinine [Mass/Vol] 1.09 mg/dL 0.70-1.30 [facility] Comment on above: The validity of the calculated GFR & GFRAA in patients over 70 years has not been determined. Clinical correlation is essential. Serum or plasma ferritin samantha surement (mass/volume)Ordered By: Verónica Meadows on 12-16-2022 Ferritin [Mass/Vol] 105 ng/mL 26-388 [facility] Serum or plasma iron saturat ion measurement (mass fraction)Ordered By: Verónica Meadows on 12-16-2022 Iron saturation [Mass fraction] 16.0 % 15.0-55.0 [facility] Serum or plasma urea nitroge n measurement (mass/volume)Ordered By: Dr. Rodriguez on 12-16-2022 Urea nitrogen [Mass/Vol] 13 mg/dL 7-18 [facility] Thin prep Papanicolaou smear with manual screeningOrdered By: Dr. Rodriguez on 12-16-2022 Thin prep Papanicolaou smear with manual screening 19 U/L 15-37 [facility] Thin prep Papanicolaou smear with manual screening 8 5-15 [facility] Blood band neutrophil count as percentage of total leukocytesOrdered By: Dr. Rodriguez on 11-25-2022 Band form neutrophils/100 WBC (Bld) 1 % 0-5 [facility] Blood basophils/100 leukocyt esOrdered By: Dr. Rodriguez on 11-25-2022 Basophils/100 WBC (Bld) 1 % 0-1 [facility] Blood lymphocytes/100 leukoc ytesOrdered By: Dr. Rodriguez on 11-25-2022 Lymphocytes/100 WBC (Bld) 3 % 19-41 [facility] Blood manual differential co mment interpretation (narrative result)Ordered By: Dr. Rodriguez on 11-25-2022 Manual differential comment [place] (Bld) [Interp] COMMENT [facility] Comment on above: LYMPHOPENIA Blood metamyelocytes/100 meera kocytesOrdered By: Dr. Rodriguez on 11-25-2022 Metamyelocytes/100 WBC (Bld) 2 % 0-1 [facility] Blood monocytes/100 leukocyt esOrdered By: Dr. Rodriguez on 11-25-2022 Monocytes/100 WBC (Bld) 1 % 0-10 [facility] Blood platelet adequacy dete ction by light microscopyOrdered By: Dr. Rodriguez on 11-25-2022 Platelets LM Ql (Bld) ADEQUATE ADEQ [facility] Blood segmented neutrophils/ [address]: [address] Rodriguez on 11-25-2022 Segmented neutrophils/100 WBC (Bld) 85 % 47-70 [facility] Laboratory - Hematology and Cell countsOrdered By: Dr. Rodriguez on 11-25-2022 Myelocytes/100 WBC (Bld) 7 % 0-0 [facility] No Panel InformationOrdered By: Dr. Rodriguez on 11-25-2022 Reactive Lymphocytes 9.0 [facility] No Panel InformationOrdered By: Angela Rodriguez on 11-25-2022 9.0 [facility] RBC morphologyOrdered By: Dr Stella Rodriguez on 11-25-2022 RBC morphology finding Nom (Bld) NORM C+C NORMAL NORM C&C [facility] Review by pathologistOrdered By: Dr. Rodriguez on 11-25-2022 Pathologist review [place] (Unsp spec) [Interp] Reviewed [facility] Comment on above: Previous reported re sult: March ori Edited by: RGOOD on 11/26/22:1003Neutrophilic left shift.Normocytic anemia.Clinical correlation necessary.Duglas Martínez M.D. 11/26/22 AMENDED REPORT 11/26/22 1003 PATH REV previously reported as: Samira rehman Total cell countOrdered By: Dr. Rodriguez on 11-25-2022 Cells counted Molgen (Bld/Tiss) [#] 100 MANUAL DIFF [facility] Microbial respiratory cultur eOrdered By: Dr. Cat on 11-22-2022 Bacteria identified Respiratory culture Nom (Unsp spec) [facility] Absolute lymphocyte countOrd ered By: Dr. Cat on 11-20-2022 Lymphocytes Auto (Unsp spec) [#/Vol] 0.26 10*3/uL 0.83-4.51 [facility] Basophil percentageOrdered B y: Dr. Cat on 11-20-2022 Basophil percentage Not Reportable W [facility] Chloride [Moles/Vol] 112 mmol/L 98-107 [facility] Glucose [Mass/Vol] 165 mg/dL 74-106 [facility] Comment on above: Fasting Glucose resu lt greater than or equal to 126 mg/dL suggests DIABETES MELLITUS per A.D.A. criteria. Neutrophils (Bld) [#/Vol] 2.7 10*3/uL 2.0-7.7 [facility] Potassium [Moles/Vol] 3.6 mmol/L 3.5-5.1 [facility] Sodium [Moles/Vol] 140 mmol/L 136-145 [facility] WBC (Bld) [#/Vol] 3.2 10*3/uL 4.4-11.0 [facility] Blood band neutrophil count as percentage of total leukocytesOrdered By: Dr. Cat on 11-20-2022 Band form neutrophils/100 WBC (Bld) 6 % 0-5 [facility] Blood erythrocytes count (nu mber/volume)Ordered By: Dr. Cat on 11-20-2022 RBC (Bld) [#/Vol] 3.56 10*6/uL 4.6-6.2 [facility] Blood hemoglobin measurement (mass/volume)Ordered By: Dr. Cat on 11-20-2022 Hemoglobin (Bld) [Mass/Vol] 9.6 g/dL 13.0-16.5 [facility] Blood lymphocytes/100 leukoc ytesOrdered By: Dr. Cat on 11-20-2022 Lymphocytes/100 WBC (Bld) 8 % 19-41 [facility] Blood metamyelocytes/100 meera kocytesOrdered By: Dr. Cat on 11-20-2022 Metamyelocytes/100 WBC (Bld) 2 % 0-1 [facility] Blood monocytes/100 leukocyt esOrdered By: Dr. Cat on 11-20-2022 Monocytes/100 WBC (Bld) 5 % 0-10 [facility] Blood platelet adequacy dete ction by light microscopyOrdered By: Dr. Cat on 11-20-2022 Platelets LM Ql (Bld) ADEQUATE ADEQ [facility] Blood platelet mean volumeOr dered By: Dr. Cat on 11-20-2022 Platelet mean volume (Bld) [Entitic vol] 8.8 fL 6.2-12.0 [facility] Blood segmented neutrophils/ [address]: [address] Cat on 11-20-2022 Segmented neutrophils/100 WBC (Bld) 77 % 47-70 [facility] Determination of erythrocyte mean corpuscular volume (MCV)Ordered By: Dr. Cat on 11-20-2022 MCV (RBC) [Entitic vol] 78.1 fL 80-94 [facility] Gram stain for investigation of transfusion reactionOrdered By: Dr. Cat on 11-20-2022 Microscopic observation Gram stain Nom (Unsp spec) [facility] Hematocrit Auto (Bld) [Volum e fraction]Ordered By: Dr. Cat on 11-20-2022 Hematocrit (Bld) [Volume fraction] 27.8 % 40-54 [facility] Laboratory - Chemistry and C hemistry - challengeOrdered By: Dr. Cat on 11-20-2022 CO2 [Moles/Vol] 20.0 mmol/L 21.0-32.0 [facility] Urea nitrogen/Creatinine [Mass ratio] 25.9 mg/mg 10-20 [facility] Laboratory - Hematology and Cell countsOrdered By: Dr. Cat on 11-20-2022 Erythrocyte distribution width (RBC) [Entitic vol] 42.3 fL 35.1-43.9 [facility] Erythrocyte distribution width (RBC) [Ratio] 14.8 % 11.6-14.6 [facility] MCH (RBC) [Entitic mass] 27.0 pg 27.0-32.0 [facility] Myelocytes/100 WBC (Bld) 2 % 0-0 [facility] Laboratory - Microbiology an d Antimicrobial susceptibilityOrdered By: Dr. Kaiser on 11-20-2022 Respiratory pathogens DNA and RNA 12b panel DAVID+probe (Unsp spec) [facility] MCHC Auto (RBC) [Mass/Vol]Or dered By: Dr. Cat on 11-20-2022 MCHC (RBC) [Mass/Vol] 34.5 g/dL 32-36 [facility] No Panel InformationOrdered By: Dr. Cat on 11-20-2022 Estimated Creatinine Clearance Calc 67.65 ml/min [facility] Estimated GFR (MDRD) Amer 104 mL/min >60 [facility] Comment on above: GFR Calc Estimated GFR (MDRD) Non-Af Amer 86 mL/min >60 [facility] Comment on above: Non- GFR Calc Streptococcus pneumoniae Antigen (M [facility] Platelets bldOrdered By: Dr. Cat on 11-20-2022 Platelets (Bld) [#/Vol] 230 10*3/uL 150-450 [facility] RBC morphologyOrdered By: Dr Stella Cat on 11-20-2022 RBC morphology finding Nom (Bld) NORM C+C NORMAL NORM C&C [facility] Review by pathologistOrdered By: Dr. Cat on 11-20-2022 Pathologist review [place] (Unsp spec) [Interp] Reviewed [facility] Comment on above: Previous reported re sult: Samira rehman Edited by: RGODIANDRA on 11/21/22:1146Leukopenia.Microcytic anemia.Clinical correlation necessary.Duglas Martínez M.D. 11/21/22 AMENDED REPORT 11/21/22 1146 PATH REV previously reported as: Samira rehman Serum or plasma calcium deangelo urement (mass/volume)Ordered By: Dr. Cat on 11-20-2022 Calcium [Mass/Vol] 8.5 mg/dL 8.5-10.1 [facility] Serum or plasma creatinine m easurement (mass/volume)Ordered By: Dr. Cat on 11-20-2022 Creatinine [Mass/Vol] 0.93 mg/dL 0.70-1.30 [facility] Comment on above: The validity of the calculated GFR & GFRAA in patients over 70 years has not been determined. Clinical correlation is essential. Serum or plasma urea nitroge n measurement (mass/volume)Ordered By: Dr. Cat on 11-20-2022 Urea nitrogen [Mass/Vol] 24 mg/dL 7-18 [facility] Thin prep Papanicolaou smear with manual screeningOrdered By: Dr. Cat on 11-20-2022 Thin prep Papanicolaou smear with manual screening 1+ [facility] Thin prep Papanicolaou smear with manual screening 8 5-15 [facility] Total cell countOrdered By: Dr. Cat on 11-20-2022 Cells counted Molgen (Bld/Tiss) [#] 100 MANUAL DIFF [facility] Urine Legionella pneumophila antigen detectionOrdered By: Dr. Cat on 11-20-2022 L. pneumophila Ag Ql (U) [facility] Absolute lymphocyte counton 11-19-2022 Lymphocytes Auto (Unsp spec) [#/Vol] 0.50 10*3/uL 0.83-4.51 [facility] Work Phone: Basophil percentageon 2022 Basophil [facility]: Chloride [Moles/Vol] 107 mmol/L 98-107 [facility] Work Phone: Glucose [Mass/Vol] 154 mg/dL 74-106 [facility] Work Phone: Comment on above: Fasting Glucose resu lt greater than or equal to 126 mg/dL suggests DIABETES MELLITUS per A.D.A. criteria. Neutrophils (Bld) [#/Vol] 3.1 10*3/uL 2.0-7.7 [facility] Work Phone: Potassium [Moles/Vol] 3.7 mmol/L 3.5-5.1 [facility] Work Phone: Sodium [Moles/Vol] 136 mmol/L 136-145 [facility] Work Phone: WBC (Bld) [#/Vol] 3.8 10*3/uL 4.4-11.0 [facility] Work Phone: Blood band neutrophil count as percentage of total leukocyteson 11-19-2022 Band form neutrophils/100 WBC (Bld) 2 % 0-5 [facility] Work Phone: Blood erythrocytes count (nu mber/volume)on 11-19-2022 RBC (Bld) [#/Vol] 3.80 10*6/uL 4.6-6.2 [facility] Work Phone: Blood hemoglobin measurement (mass/volume)on 11-19-2022 Hemoglobin (Bld) [Mass/Vol] 9.8 g/dL 13.0-16.5 [facility] Work Phone: Blood lymphocytes/100 leukoc yteson 11-19-2022 Lymphocytes/100 WBC (Bld) 13 % 19-41 [facility] Work Phone: Blood metamyelocytes/100 meera kocyteson 11-19-2022 Metamyelocytes/100 WBC (Bld) 1 % 0-1 [facility] Work Phone: Blood monocytes/100 leukocyt eson 11-19-2022 Monocytes/100 WBC (Bld) 4 % 0-10 [facility] Work Phone: Blood platelet mean volumeon 11-19-2022 Platelet mean volume (Bld) [Entitic vol] 8.8 fL 6.2-12.0 [facility] Work Phone: Blood segmented neutrophils/ 100 leukocyteson 11-19-2022 Segmented neutrophils/100 WBC (Bld) 79 % 47-70 [facility] Work Phone: Determination of erythrocyte mean corpuscular volume (MCV)on 11-19-2022 MCV (RBC) [Entitic vol] 78.2 fL 80-94 [facility] Work Phone: Hematocrit Auto (Bld) [Volum e fraction]on 11-19-2022 Hematocrit (Bld) [Volume fraction] 29.7 % 40-54 [facility] Work Phone: Laboratory - Chemistry and C hemistry - challengeon 11-19-2022 CO2 [Moles/Vol] 20.0 mmol/L 21.0-32.0 [facility] Work Phone: Urea nitrogen/Creatinine [Mass ratio] 27.1 mg/mg 10-20 [facility] Work Phone: Laboratory - Chemistry and C hemistry - challengeOrdered By: Dr. Menon on 11-19-2022 Natriuretic peptide B (Bld) [Mass/Vol] 33.0 pg/mL 0-100 [facility] Laboratory - Hematology and Cell countson 11-19-2022 Erythrocyte distribution width (RBC) [Entitic vol] 41.7 fL 35.1-43.9 [facility] Work Phone: Erythrocyte distribution width (RBC) [Ratio] 14.9 % 11.6-14.6 [facility] Work Phone: MCH (RBC) [Entitic mass] 25.8 pg 27.0-32.0 [facility] Work Phone: Myelocytes/100 WBC (Bld) 1 % 0-0 [facility] Work Phone: MCHC Auto (RBC) [Mass/Vol]on 11-19-2022 MCHC (RBC) [Mass/Vol] 33.0 g/dL 32-36 [facility] Work Phone: No Panel Informationon 11-19 Estimated Creatinine Clearance Calc 58.80 ml/min [facility] Work Phone: Estimated GFR (MDRD) Amer 88 mL/min >60 [facility] Work Phone: Comment on above: GFR Calc Estimated GFR (MDRD) Non-Af Amer 73 mL/min >60 [facility] Work Phone: Comment on above: Non- GFR Calc No Panel InformationOrdered By: Dr. Menon on 11-19-2022 Troponin I High Sensitivity 5 pg/mL 3.0-78.0 [facility] Comment on above: Please Note: [place] t Units and Gender Specific Reference Ranges. For more information see Policy Stat Procedure [place] High Sensitivity Troponin (TNIH) and attachments. Platelets bldon 11-19-2022 Platelets (Bld) [#/Vol] 237 10*3/uL 150-450 [facility] Work Phone: Review by pathologiston 11-09 Pathologist review [place] (Unsp spec) [Interp] March [facility] Work Phone: Serum or plasma calcium deangelo urement (mass/volume)on 11-19-2022 Calcium [Mass/Vol] 8.8 mg/dL 8.5-10.1 [facility] Work Phone: Serum or plasma creatinine m easurement (mass/volume)on 11-19-2022 Creatinine [Mass/Vol] 1.07 mg/dL 0.70-1.30 [facility] Work Phone: Comment on above: The validity of the calculated GFR & GFRAA in patients over 70 years has not been determined. Clinical correlation is essential. Serum or plasma urea nitroge n measurement (mass/volume)on 11-19-2022 Urea nitrogen [Mass/Vol] 29 mg/dL 7-18 [facility] Work Phone: Thin prep Papanicolaou smear with manual screeningon 11-19-2022 Thin prep Papanicolaou smear with manual screening 9 5-15 [facility] Work Phone: Total cell counton 3 Cells counted Molgen (Bld/Tiss) [#] 100 MANUAL DIFF [facility] Work Phone: Absolute lymphocyte counton 11-13-2022 Lymphocytes Auto (Unsp spec) [#/Vol] 0.80 10*3/uL 0.83-4.51 [facility] Work Phone: Basophil percentageon 2022 Basophil percentage Not Reportable W [facility] Work Phone: Neutrophils (Bld) [#/Vol] 2.3 10*3/uL 2.0-7.7 [facility] Work Phone: WBC (Bld) [#/Vol] 3.4 10*3/uL 4.4-11.0 [facility] Work Phone: Blood band neutrophil count as percentage of total leukocyteson 11-13-2022 Band form neutrophils/100 WBC (Bld) 1 % 0- [facility] Work Phone: Blood eosinophils/100 leukoc ytesOrdered By: Verónica Meadows on 11-13-2022 Eosinophils/100 WBC (Bld) 1 % 0-5 [facility] Blood erythrocytes count (nu mber/volume)on 11-13-2022 RBC (Bld) [#/Vol] 4.47 10*6/uL 4.6-6.2 [facility] Work Phone: Blood hemoglobin measurement (mass/volume)on 11-13-2022 Hemoglobin (Bld) [Mass/Vol] 12.1 g/dL 13.0-16.5 [facility] Work Phone: Blood lymphocytes/100 leukoc yteson 11-13-2022 Lymphocytes/100 WBC (Bld) 23 % 19-41 [facility] Work Phone: Blood monocytes/100 leukocyt eson 11-13-2022 Monocytes/100 WBC (Bld) 7 % 0-10 [facility] Work Phone: Blood platelet adequacy dete ction by light microscopyon 11-13-2022 Platelets LM Ql (Bld) SLT DEC ADEQ [facility] Work Phone: Blood platelet mean volumeon 11-13-2022 Platelet mean volume (Bld) [Entitic vol] 8.8 fL 6.2-12.0 [facility] Work Phone: Blood segmented neutrophils/ 100 leukocyteson 11-13-2022 Segmented neutrophils/100 WBC (Bld) 66 % 47-70 [facility] Work Phone: Determination of erythrocyte mean corpuscular volume (MCV)on 11-13-2022 MCV (RBC) [Entitic vol] 80.3 fL 80-94 [facility] Work Phone: Hematocrit Auto (Bld) [Volum e fraction]on 11-13-2022 Hematocrit (Bld) [Volume fraction] 35.9 % 40-54 [facility] Work Phone: Laboratory - Hematology and Cell countson 11-13-2022 Erythrocyte distribution width (RBC) [Entitic vol] 45.4 fL 35.1-43.9 [facility] Work Phone: Erythrocyte distribution width (RBC) [Ratio] 15.6 % 11.6-14.6 [facility] Work Phone: MCH (RBC) [Entitic mass] 27.1 pg 27.0-32.0 [facility] Work Phone: Myelocytes/100 WBC (Bld) 2 % 0-0 [facility] Work Phone: MCHC Auto (RBC) [Mass/Vol]on 11-13-2022 MCHC (RBC) [Mass/Vol] 33.7 g/dL 32-36 [facility] Work Phone: Platelets bldon 11-13-2022 Platelets (Bld) [#/Vol] 149 10*3/uL 150-450 [facility] Work Phone: RBC morphologyon 11-13-2022 RBC morphology finding Nom (Bld) NORM C+C NORMAL NORM C&C [facility] Work Phone: Review by pathologiston Pathologist review [place] (Unsp spec) [Interp] Reviewed [facility] Work Phone: Comment on above: Previous reported re sult: Samira rehman Edited by: [email or web address] on 11/17/22:1057Leukopenia.Clinical correlation necessary.Duglas Martínez M.D. 11/17/22 AMENDED REPORT 11/17/22 1057 PATH REV previously reported as: Samira rehman Total cell counton 3 Cells counted Molgen (Bld/Tiss) [#] 100 MANUAL DIFF [facility] Work Phone: Basophil percentageon 2021 Basophil percentage 3.5 mg/dL 2.5-4.9 [facility] Work Phone: Basophils/100 WBC (Bld) 0.2 % 0-1 [facility] Work Phone: Bilirubin [Mass/Vol] 0.60 mg/dL 0.20-1.00 [facility] Work Phone: Comment on above: For patients on eltr ombopag therapy, use of Dimension [place] TBIL is not recommended. Chloride [Moles/Vol] 102 mmol/L 98-107 [facility] Work Phone: Eosinophils/100 WBC (Bld) 0.0 % 0-5 [facility] Work Phone: Glucose [Mass/Vol] 120 mg/dL 74-106 [facility] Work Phone: Comment on above: Fasting Glucose resu lt from 100 to 125 mg/dL suggests IMPAIRED HOMEOSTASIS per A.D.A. criteria. Potassium [Moles/Vol] 3.8 mmol/L 3.5-5.1 [facility] Work Phone: Protein [Mass/Vol] 6.1 g/dL 6.4-8.2 [facility] Work Phone: Sodium [Moles/Vol] 134 mmol/L 136-145 [facility] Work Phone: Blood lymphocytes/100 leukoc yteson 11-04-2022 Lymphocytes/100 WBC (Bld) 4.8 % 19-41 [facility] Work Phone: Blood manual differential co mment interpretation (narrative result)on 11-04-2022 Manual differential comment [place] (Bld) [Interp] SCANNED [facility] Work Phone: Blood monocytes/100 leukocyt eson 11-04-2022 Monocytes/100 WBC (Bld) 3.7 % 0-10 [facility] Work Phone: Laboratory - Chemistry and C hemistry - challengeon 11-04-2022 ALP [Catalytic activity/Vol] 47 U/L 45-117 [facility] Work Phone: ALT [Catalytic activity/Vol] 42 U/L 16-61 [facility] Work Phone: CO2 [Moles/Vol] 24.0 mmol/L 21.0-32.0 [facility] Work Phone: Globulin (S) [Mass/Vol] 3.0 g/dL 2.2-4.2 [facility] Work Phone: Urea nitrogen/Creatinine [Mass ratio] 28.3 mg/mg 10-20 [facility] Work Phone: Laboratory - Hematology and Cell countson 11-04-2022 Immature granulocytes/100 WBC (Bld) 2.800 % 0.0-0.9 [facility] Work Phone: Comment on above: IG% - Immature Granu locytes (promyelocytes, myelocytes and metamyelocytes) > 1% indicates that a LEFT SHIFT is Present. Nucleated RBC/100 WBC (Bld) [Ratio] 0 % 0-5 [facility] Work Phone: No Panel Informationon 11-04 Estimated Creatinine Clearance Calc 68.38 ml/min [facility] Work Phone: Estimated GFR (MDRD) Amer 105 mL/min >60 [facility] Work Phone: Comment on above: GFR Calc Estimated GFR (MDRD) Non-Af Amer 87 mL/min >60 [facility] Work Phone: Comment on above: Non- GFR Calc Serum or plasma albumin deangelo urement (mass/volume)on 11-04-2022 Albumin [Mass/Vol] 3.1 g/dL 3.2-5.0 [facility] Work Phone: Serum or plasma albumin/glob ulin mass ratioon 11-04-2022 Albumin/Globulin [Mass ratio] 1.0 {ratio} 0.9-2.4 [facility] Work Phone: Serum or plasma calcium deangelo urement (mass/volume)on 11-04-2022 Calcium [Mass/Vol] 8.4 mg/dL 8.5-10.1 [facility] Work Phone: Serum or plasma creatinine m easurement (mass/volume)on 11-04-2022 Creatinine [Mass/Vol] 0.92 mg/dL 0.70-1.30 [facility] Work Phone: Comment on above: The validity of the calculated GFR & GFRAA in patients over 70 years has not been determined. Clinical correlation is essential. Serum or plasma urea nitroge n measurement (mass/volume)on 11-04-2022 Urea nitrogen [Mass/Vol] 26 mg/dL 7-18 [facility] Work Phone: Thin prep Papanicolaou smear with manual screeningon 11-04-2022 Thin prep Papanicolaou smear with manual screening 17 U/L 15-37 [facility] Work Phone: Thin prep Papanicolaou smear with manual screening 8 5-15 [facility] Work Phone: Absolute lymphocyte counton 10-14-2022 Lymphocytes Auto (Unsp spec) [#/Vol] 1.05 10*3/uL 0.83-4.51 [facility] Work Phone: Basophil percentageon 2021 Basophil percentage 3.7 mg/dL 2.5-4.9 [facility] Work Phone: [phone] Basophils/100 WBC (Bld) 0.8 % 0-1 [facility] Work Phone: Bilirubin [Mass/Vol] 0.40 mg/dL 0.20-1.00 [facility] Work Phone: Comment on above: For patients on eltr ombopag therapy, use of Dimension [place] TBIL is not recommended. Chloride [Moles/Vol] 108 mmol/L 98-107 [facility] Work Phone: Eosinophils/100 WBC (Bld) 6.7 % 0-5 [facility] Work Phone: Glucose [Mass/Vol] 108 mg/dL 74-106 [facility] Work Phone: Comment on above: Fasting Glucose resu lt from 100 to 125 mg/dL suggests IMPAIRED HOMEOSTASIS per A.D.A. criteria. Neutrophils (Bld) [#/Vol] 3.1 10*3/uL 2.0-7.7 [facility] Work Phone: Neutrophils/100 WBC (Bld) 59.3 % 47-70 [facility] Work Phone: Potassium [Moles/Vol] 3.9 mmol/L 3.5-5.1 [facility] Work Phone: Protein [Mass/Vol] 6.4 g/dL 6.4-8.2 [facility] Work Phone: Sodium [Moles/Vol] 140 mmol/L 136-145 [facility] Work Phone: WBC (Bld) [#/Vol] 5.2 10*3/uL 4.4-11.0 [facility] Work Phone: Blood erythrocytes count (nu mber/volume)on 10-14-2022 RBC (Bld) [#/Vol] 4.96 10*6/uL 4.6-6.2 [facility] Work Phone: Blood hemoglobin measurement (mass/volume)on 10-14-2022 Hemoglobin (Bld) [Mass/Vol] 13.4 g/dL 13.0-16.5 [facility] Work Phone: Blood lymphocytes/100 leukoc yteson 10-14-2022 Lymphocytes/100 WBC (Bld) 20.1 % 19-41 [facility] Work Phone: Blood monocytes/100 leukocyt eson 10-14-2022 Monocytes/100 WBC (Bld) 12.0 % 0-10 [facility] Work Phone: Blood platelet mean volumeon 10-14-2022 Platelet mean volume (Bld) [Entitic vol] 9.4 fL 6.2-12.0 [facility] Work Phone: Determination of erythrocyte mean corpuscular volume (MCV)on 10-14-2022 MCV (RBC) [Entitic vol] 80.4 fL 80-94 [facility] Work Phone: Hematocrit Auto (Bld) [Volum e fraction]on 10-14-2022 Hematocrit (Bld) [Volume fraction] 39.9 % 40-54 [facility] Work Phone: Laboratory - Chemistry and C hemistry - challengeon 10-14-2022 ALP [Catalytic activity/Vol] 50 U/L 45-117 [facility] Work Phone: [phone] ALT [Catalytic activity/Vol] 26 U/L 16-61 [facility] Work Phone: CO2 [Moles/Vol] 23.0 mmol/L 21.0-32.0 [facility] Work Phone: Free T4 [Mass/Vol] 1.11 ng/dL 0.76-1.46 [facility] Work Phone: Globulin (S) [Mass/Vol] 3.0 g/dL 2.2-4.2 [facility] Work Phone: Urea nitrogen/Creatinine [Mass ratio] 20.6 mg/mg 10-20 [facility] Work Phone: Laboratory - Hematology and Cell countson 10-14-2022 Erythrocyte distribution width (RBC) [Entitic vol] 44.1 fL 35.1-43.9 [facility] Work Phone: Erythrocyte distribution width (RBC) [Ratio] 15.2 % 11.6-14.6 [facility] Work Phone: Immature granulocytes/100 WBC (Bld) 1.100 % 0.0-0.9 [facility] Work Phone: Comment on above: IG% - Immature Granu locytes (promyelocytes, myelocytes and metamyelocytes) > 1% indicates that a LEFT SHIFT is Present. MCH (RBC) [Entitic mass] 27.0 pg 27.0-32.0 [facility] Work Phone: Nucleated RBC/100 WBC (Bld) [Ratio] 0 % 0-5 [facility] Work Phone: MCHC Auto (RBC) [Mass/Vol]on 10-14-2022 MCHC (RBC) [Mass/Vol] 33.6 g/dL 32-36 [facility] Work Phone: No Panel Informationon 10-14 Estimated Creatinine Clearance Calc 61.68 ml/min [facility] Work Phone: Estimated GFR (MDRD) Amer 93 mL/min >60 [facility] Work Phone: Comment on above: GFR Calc Estimated GFR (MDRD) Non-Af Amer 77 mL/min >60 [facility] Work Phone: Comment on above: Non- GFR Calc Thyroid Stimulating Hormone (TSH) 2.10 uIU/mL 0.358-3.74 [facility] Work Phone: Platelets bldon 10-14-2022 Platelets (Bld) [#/Vol] 169 10*3/uL 150-450 [facility] Work Phone: Serum or plasma albumin deangelo urement (mass/volume)on 10-14-2022 Albumin [Mass/Vol] 3.4 g/dL 3.2-5.0 [facility] Work Phone: Serum or plasma albumin/glob ulin mass ratioon 10-14-2022 Albumin/Globulin [Mass ratio] 1.1 {ratio} 0.9-2.4 [facility] Work Phone: Serum or plasma calcium deagnelo urement (mass/volume)on 10-14-2022 Calcium [Mass/Vol] 8.5 mg/dL 8.5-10.1 [facility] Work Phone: Serum or plasma cortisol samantha surement (mass/volume)on 10-14-2022 Cortisol [Mass/Vol] 15.90 ug/dL 3.44-22.45 [facility] Work Phone: Comment on above: Adult (AM) 5.27 - 22 .45 ug/dL Adult (PM) 3.44 - 16.76 ug/dLPlease note revised CORTISOL reference range effective 2020. Serum or plasma creatinine m easurement (mass/volume)on 10-14-2022 Creatinine [Mass/Vol] 1.02 mg/dL 0.70-1.30 [facility] Work Phone: Comment on above: The validity of the calculated GFR & GFRAA in patients over 70 years has not been determined. Clinical correlation is essential. Serum or plasma urea nitroge n measurement (mass/volume)on 10-14-2022 Urea nitrogen [Mass/Vol] 21 mg/dL 7-18 [facility] Work Phone: Thin prep Papanicolaou smear with manual screeningon 10-14-2022 Thin prep Papanicolaou smear with manual screening 14 U/L 15-37 [facility] Work Phone: Thin prep Papanicolaou smear with manual screening 9 5-15 [facility] Work Phone: Absolute lymphocyte counton 09-02-2022 Lymphocytes Auto (Unsp spec) [#/Vol] 0.96 10*3/uL 0.83-4.51 [facility] Work Phone: Basophil percentageon 2021 Basophil percentage 3.2 mg/dL 2.5-4.9 [facility] Work Phone: Basophils/100 WBC (Bld) 1.0 % 0-1 [facility] Work Phone: Bilirubin [Mass/Vol] 0.30 mg/dL 0.20-1.00 [facility] Work Phone: Comment on above: For patients on eltr ombopag therapy, use of Dimension [place] TBIL is not recommended. Chloride [Moles/Vol] 113 mmol/L 98-107 [facility] Work Phone: [phone] Eosinophils/100 WBC (Bld) 8.0 % 0-5 [facility] Work Phone: Glucose [Mass/Vol] 110 mg/dL 74-106 [facility] Work Phone: Comment on above: Fasting Glucose resu lt from 100 to 125 mg/dL suggests IMPAIRED HOMEOSTASIS per A.D.A. criteria. Neutrophils (Bld) [#/Vol] 3.0 10*3/uL 2.0-7.7 [facility] Work Phone: Neutrophils/100 WBC (Bld) 57.9 % 47-70 [facility] Work Phone: Potassium [Moles/Vol] 3.6 mmol/L 3.5-5.1 [facility] Work Phone: Protein [Mass/Vol] 6.0 g/dL 6.4-8.2 [facility] Work Phone: Sodium [Moles/Vol] 141 mmol/L 136-145 [facility] Work Phone: WBC (Bld) [#/Vol] 5.1 10*3/uL 4.4-11.0 [facility] Work Phone: Blood erythrocytes count (nu mber/volume)on 09-02-2022 RBC (Bld) [#/Vol] 4.85 10*6/uL 4.6-6.2 [facility] Work Phone: Blood hemoglobin measurement (mass/volume)on 09-02-2022 Hemoglobin (Bld) [Mass/Vol] 12.6 g/dL 13.0-16.5 [facility] Work Phone: Blood lymphocytes/100 leukoc yteson 09-02-2022 Lymphocytes/100 WBC (Bld) 18.8 % 19-41 [facility] Work Phone: Blood monocytes/100 leukocyt eson 09-02-2022 Monocytes/100 WBC (Bld) 13.1 % 0-10 [facility] Work Phone: Blood platelet mean volumeon 09-02-2022 Platelet mean volume (Bld) [Entitic vol] 9.4 fL 6.2-12.0 [facility] Work Phone: [phone] Determination of erythrocyte mean corpuscular volume (MCV)on 09-02-2022 MCV (RBC) [Entitic vol] 79.6 fL 80-94 [facility] Work Phone: [phone] Hematocrit Auto (Bld) [Volum e fraction]on 09-02-2022 Hematocrit (Bld) [Volume fraction] 38.6 % 40-54 [facility] Work Phone: Laboratory - Chemistry and C hemistry - challengeon 09-02-2022 ALP [Catalytic activity/Vol] 50 U/L 45-117 [facility] Work Phone: ALT [Catalytic activity/Vol] 23 U/L 16-61 [facility] Work Phone: CO2 [Moles/Vol] 23.0 mmol/L 21.0-32.0 [facility] Work Phone: Globulin (S) [Mass/Vol] 2.9 g/dL 2.2-4.2 [facility] Work Phone: Urea nitrogen/Creatinine [Mass ratio] 16.0 mg/mg 10-20 [facility] Work Phone: [phone] Laboratory - Hematology and Cell countson 09-02-2022 Erythrocyte distribution width (RBC) [Entitic vol] 46.9 fL 35.1-43.9 [facility] Work Phone: Erythrocyte distribution width (RBC) [Ratio] 16.4 % 11.6-14.6 [facility] Work Phone: Immature granulocytes/100 WBC (Bld) 1.200 % 0.0-0.9 [facility] Work Phone: Comment on above: IG% - Immature Granu locytes (promyelocytes, myelocytes and metamyelocytes) > 1% indicates that a LEFT SHIFT is Present. MCH (RBC) [Entitic mass] 26.0 pg 27.0-32.0 [facility] Work Phone: Nucleated RBC/100 WBC (Bld) [Ratio] 0 % 0-5 [facility] Work Phone: MCHC Auto (RBC) [Mass/Vol]on 09-02-2022 MCHC (RBC) [Mass/Vol] 32.6 g/dL 32-36 [facility] Work Phone: No Panel Informationon 09-02 Estimated Creatinine Clearance Calc 60.19 ml/min [facility] Work Phone: Estimated GFR (MDRD) Amer 89 mL/min >60 [facility] Work Phone: Comment on above: GFR Calc Estimated GFR (MDRD) Non-Af Amer 74 mL/min >60 [facility] Work Phone: Comment on above: Non- GFR Calc Platelets bldon 09-02-2022 Platelets (Bld) [#/Vol] 182 10*3/uL 150-450 [facility] Work Phone: Serum or plasma albumin deangelo urement (mass/volume)on 09-02-2022 Albumin [Mass/Vol] 3.1 g/dL 3.2-5.0 [facility] Work Phone: Serum or plasma albumin/glob ulin mass ratioon 09-02-2022 Albumin/Globulin [Mass ratio] 1.1 {ratio} 0.9-2.4 [facility] Work Phone: Serum or plasma calcium deangelo urement (mass/volume)on 09-02-2022 Calcium [Mass/Vol] 8.4 mg/dL 8.5-10.1 [facility] Work Phone: Serum or plasma creatinine m easurement (mass/volume)on 09-02-2022 Creatinine [Mass/Vol] 1.06 mg/dL 0.70-1.30 [facility] Work Phone: Comment on above: The validity of the calculated GFR & GFRAA in patients over 70 years has not been determined. Clinical correlation is essential. Serum or plasma urea nitroge n measurement (mass/volume)on 09-02-2022 Urea nitrogen [Mass/Vol] 17 mg/dL 7-18 [facility] Work Phone: Thin prep Papanicolaou smear with manual screeningon 09-02-2022 Thin prep Papanicolaou smear with manual screening 16 U/L 15-37 [facility] Work Phone: Thin prep Papanicolaou smear with manual screening 5 5-15 [facility] Work Phone: Basophil percentageOrdered B y: Dr. Rodriguez on 08-12-2022 Cholesterol [Mass/Vol] 130 mg/dL <200 [facility] Comment on above: <200 mg/dL Desirable 200-240 mg/dL Borderline >240 mg/dL High Risk Triglyceride [Mass/Vol] 150 mg/dL <199 [facility] Comment on above: The drugs N-Acetylcy steine and Metamizole may falsely depress this assay.Serum Triglycerides Reference Interval Normal <150 mg/dL Borderline high 150 - 199 mg/dL High 200 - 499 mg/dL Very High > or = 500 mg/dL Laboratory - Chemistry and C hemistry - challengeOrdered By: Dr. Rodriguez on 08-12-2022 Magnesium [Mass/Vol] 2.1 mg/dL 1.6-2.6 [facility] No Panel InformationOrdered By: Angela Rodriguez on 08-12-2022 2.1 mg/dL 1.6-2.6 [facility] Serum or plasma cholesterol in HDL measurement (mass/volume)Ordered By: Dr. Rodriguez on 08-12-2022 Cholesterol in HDL [Mass/Vol] 28 mg/dL >40 [facility] Comment on above: The drugs N-Acetylcy steine and Metamizole may falsely depress this assay. Reference Range HDL <40 mg/dL Low HDL Cholesterol HDL >or= 60 mg/dL High HDL Cholesterol Serum or plasma cholesterol in VLDL measurement (mass/volume)Ordered By: Dr. Rodriguez on 08-12-2022 Cholesterol in VLDL [Mass/Vol] 30 mg/dL 5-40 [facility] Serum or plasma low density lipoprotein (LDL) cholesterol measurement (mass/volume)Ordered By: Dr. Rodriguez on 08-12-2022 Cholesterol in LDL [Mass/Vol] 72 mg/dL 0-130 [facility] Blood manual differential co mment interpretation (narrative result)on 07-15-2022 Manual differential comment [place] (Bld) [Interp] COMMENT [facility] Work Phone: Comment on above: LYMPHOPENIA. Laboratory - Chemistry and C hemistry - challengeon 07-15-2022 Free T4 [Mass/Vol] 1.52 ng/dL 0.76-1.46 [facility] Work Phone: Laboratory - Microbiology an d Antimicrobial susceptibilityon 07-15-2022 SARS-CoV-2 (COVID-19) RNA ADVID+probe Ql (Unsp spec) Not detected [facility] Work Phone: No Panel Informationon 07-15 POC Nasal Swab Influenza A,B Not detected [facility] Work Phone: POC Nasal Swab RSV Not detected [facility] Work Phone: Thyroid Stimulating Hormone (TSH) 0.77 uIU/mL 0.358-3.74 [facility] Work Phone: Review by pathologiston Pathologist review [place]in[place] (Unsp spec) [Interp] Reviewed [facility] Work Phone: Comment on above: Previous reported re sult: Samira rehman Edited by: VERITO on 07/16/22:1544LeukopeniaMicrocytic anemia.Clinical correlation necessary.Duglas Martínez M.D. 07/16/22 AMENDED REPORT 07/16/22 1544 PATH REV previously reported as: Samira rehman Serum or plasma cortisol samantha surement (mass/volume)on 07-15-2022 Cortisol [Mass/Vol] 25.10 ug/dL 3.44-22.45 [facility] Work Phone: Comment on above: Adult (AM) 5.27 - 22 .45 ug/dL Adult (PM) 3.44 - 16.76 ug/dLPlease note revised CORTISOL reference range effective 2020. Iron measurement (mass/mass) on 06-24-2022 Iron (Unsp spec) [Mass/Mass] 53 ug/dL 65-175 [facility] Work Phone: Laboratory - Hematology and Cell countsOrdered By: Dr. Rodriguez on 06-24-2022 Anisocytosis Ql (Bld) 1+ [facility] No Panel Informationon 06-24 Total Iron Binding Capacity 332 ug/dL 250-450 [facility] Work Phone: Serum or plasma ferritin samantha surement (mass/volume)on 06-24-2022 Ferritin [Mass/Vol] 138 ng/mL 26-388 [facility] Work Phone: Serum or plasma iron saturat ion measurement (mass fraction)on 06-24-2022 Iron saturation [Mass fraction] 16.0 % 15.0-55.0 [facility] Work Phone: Laboratory - Chemistry and C hemistry - challengeOrdered By: Dr. Rodriguez on 05-13-2022 Cobalamin (Vitamin B12) [Mass/Vol] 267 pg/mL 211-911 [facility] Serum or plasma folate measu rement (mass/volume)Ordered By: Dr. Rodriguez on 05-13-2022 Folate [Mass/Vol] 9.90 ng/mL 3.1-55.4 [facility] Thin prep Papanicolaou smear with manual screeningOrdered By: Dr. Piña on 05-13-2022 Thin prep Papanicolaou smear with manual screening 179 U/L 87-241 [facility] Stool gastrointestinal hemog lobin detection by immunologic methodon 04-04-2022 Lower GI hemoglobin IA Ql (Stl) [facility] Absolute lymphocyte counton 03-11-2022 Lymphocytes Auto (Unsp spec) [#/Vol] 0.78 10*3/uL 0.83-4.51 [facility] Work Phone: Basophil percentageon 2021 Basophil percentage 3.5 mg/dL 2.5-4.9 [facility] Work Phone: Basophils/100 WBC (Bld) 0.8 % 0-1 [facility] Work Phone: Bilirubin [Mass/Vol] 0.30 mg/dL 0.20-1.00 [facility] Work Phone: Comment on above: For patients on eltr ombopag therapy, use of Dimension [place] TBIL is not recommended. Chloride [Moles/Vol] 105 mmol/L 98-107 [facility] Work Phone: Eosinophils/100 WBC (Bld) 5.2 % 0-5 [facility] Work Phone: Glucose [Mass/Vol] 104 mg/dL 74-106 [facility] Work Phone: Comment on above: Fasting Glucose resu lt from 100 to 125 mg/dL suggests IMPAIRED HOMEOSTASIS per A.D.A. criteria. Neutrophils (Bld) [#/Vol] 4.2 10*3/uL 2.0-7.7 [facility] Work Phone: Neutrophils/100 WBC (Bld) 67.9 % 47-70 [facility] Work Phone: [phone] Potassium [Moles/Vol] 3.6 mmol/L 3.5-5.1 [facility] Work Phone: Protein [Mass/Vol] 6.6 g/dL 6.4-8.2 [facility] Work Phone: [phone] Sodium [Moles/Vol] 138 mmol/L 136-145 [facility] Work Phone: WBC (Bld) [#/Vol] 6.1 10*3/uL 4.4-11.0 [facility] Work Phone: Blood erythrocytes count (nu mber/volume)on 03-11-2022 RBC (Bld) [#/Vol] 4.40 10*6/uL 4.6-6.2 [facility] Work Phone: Blood hemoglobin measurement (mass/volume)on 03-11-2022 Hemoglobin (Bld) [Mass/Vol] 10.6 g/dL 13.0-16.5 [facility] Work Phone: [phone] Blood lymphocytes/100 leukoc yteson 03-11-2022 Lymphocytes/100 WBC (Bld) 12.7 % 19-41 [facility] Work Phone: Blood monocytes/100 leukocyt eson 03-11-2022 Monocytes/100 WBC (Bld) 11.9 % 0-10 [facility] Work Phone: Blood platelet mean volumeon 03-11-2022 Platelet mean volume (Bld) [Entitic vol] 9.4 fL 6.2-12.0 [facility] Work Phone: Determination of erythrocyte mean corpuscular volume (MCV)on 05-03-2022 MCV (RBC) [Entitic vol] 75.0 fL 80-94 [facility] Work Phone: Hematocrit Auto (Bld) [Volum e fraction]on 03-11-2022 Hematocrit (Bld) [Volume fraction] 33.0 % 40-54 [facility] Work Phone: Hemoglobin in reticulocytes (mass per reticulocyte)on 03-11-2022 Hemoglobin (Reticulocytes) [Entitic mass] 25.7 pg 30-35 [facility] Iron measurement (mass/mass) on 03-11-2022 Iron (Unsp spec) [Mass/Mass] 29 ug/dL 65-175 [facility] Work Phone: Laboratory - Chemistry and C hemistry - challengeon 03-11-2022 Cobalamin (Vitamin B12) [Mass/Vol] 243 pg/mL 211-911 [facility] Work Phone: ALP [Catalytic activity/Vol] 57 U/L 45-117 [facility] Work Phone: ALT [Catalytic activity/Vol] 22 U/L 16-61 [facility] Work Phone: CO2 [Moles/Vol] 22.0 mmol/L 21.0-32.0 [facility] Work Phone: Globulin (S) [Mass/Vol] 3.2 g/dL 2.2-4.2 [facility] Work Phone: Urea nitrogen/Creatinine [Mass ratio] 16.8 mg/mg 10-20 [facility] Work Phone: [phone] Laboratory - Hematology and Cell countson 03-11-2022 Erythrocyte distribution width (RBC) [Entitic vol] 42.3 fL 35.1-43.9 [facility] Work Phone: Erythrocyte distribution width (RBC) [Ratio] 15.7 % 11.6-14.6 [facility] Work Phone: Immature granulocytes/100 WBC (Bld) 1.500 % 0.0-0.9 [facility] Work Phone: Comment on above: IG% - Immature Granu locytes (promyelocytes, myelocytes and metamyelocytes) > 1% indicates that a LEFT SHIFT is Present. MCH (RBC) [Entitic mass] 24.1 pg 27.0-32.0 [facility] Work Phone: Nucleated RBC/100 WBC (Bld) [Ratio] 0 % 0-5 [facility] Work Phone: MCHC Auto (RBC) [Mass/Vol]on 03-11-2022 MCHC (RBC) [Mass/Vol] 32.1 g/dL 32-36 [facility] Work Phone: No Panel Informationon 03-11 Immature Reticulocyte Fraction 29.70 % 3.00-15.90 [facility] Reticulocyte Count 2.12 % 0.5-1.5 [facility] Estimated Creatinine Clearance Calc 47.36 ml/min [facility] Work Phone: Estimated GFR (MDRD) Amer 74 mL/min >60 [facility] Work Phone: Comment on above: GFR Calc Estimated GFR (MDRD) Non-Af Amer 61 mL/min >60 [facility] Work Phone: Comment on above: Non- GFR Calc Total Iron Binding Capacity 416 ug/dL 250-450 [facility] Work Phone: Platelets bldon 03-11-2022 Platelets (Bld) [#/Vol] 208 10*3/uL 150-450 [facility] Work Phone: Serum or plasma albumin deangelo urement (mass/volume)on 03-11-2022 Albumin [Mass/Vol] 3.4 g/dL 3.2-5.0 [facility] Work Phone: Serum or plasma albumin/glob ulin mass ratioon 03-11-2022 Albumin/Globulin [Mass ratio] 1.1 {ratio} 0.9-2.4 [facility] Work Phone: Serum or plasma calcium deangelo urement (mass/volume)on 03-11-2022 Calcium [Mass/Vol] 8.5 mg/dL 8.5-10.1 [facility] Work Phone: Serum or plasma creatinine m easurement (mass/volume)on 03-11-2022 Creatinine [Mass/Vol] 1.25 mg/dL 0.70-1.30 [facility] Work Phone: Comment on above: The validity of the calculated GFR & GFRAA in patients over 70 years has not been determined. Clinical correlation is essential. Serum or plasma ferritin samantha surement (mass/volume)on 03-11-2022 Ferritin [Mass/Vol] 12 ng/mL 26-388 [facility] Work Phone: Serum or plasma iron saturat ion measurement (mass fraction)on 03-11-2022 Iron saturation [Mass fraction] 7.0 % 15.0-55.0 [facility] Work Phone: Serum or plasma urea nitroge n measurement (mass/volume)on 03-11-2022 Urea nitrogen [Mass/Vol] 21 mg/dL 7-18 [facility] Work Phone: Thin prep Papanicolaou smear with manual screeningon 03-11-2022 Thin prep Papanicolaou smear with manual screening 16 U/L 15-37 [facility] Work Phone: Thin prep Papanicolaou smear with manual screening 11 5-15 [facility] Work Phone: Laboratory - Chemistry and C hemistry - challengeon 01-07-2022 Free T4 [Mass/Vol] 1.07 ng/dL 0.76-1.46 [facility] Work Phone: Magnesium [Mass/Vol] 2.0 mg/dL 1.6-2.6 [facility] Work Phone: No Panel Informationon 01-07 Thyroid Stimulating Hormone (TSH) 1.49 uIU/mL 0.358-3.74 [facility] Work Phone: Serum or plasma cortisol samantha surement (mass/volume)on 11-26-2021 Cortisol [Mass/Vol] 16.10 ug/dL 3.44-22.45 [facility] Work Phone: Comment on above: Adult (AM) 5.27 - 22 .45 ug/dL Adult (PM) 3.44 - 16.76 ug/dLPlease note revised CORTISOL reference range effective 2020. VL Venous Duplex US Lower Ex t Righton 11-18-2021 VL Venous Duplex US Lower Ext Right Patient Name: KENN ARSHAD Sr Ultrasound ACCESSION EXAM DATE/TIME PROCEDURE ORDERING PROVIDER [id number] 11/18/2021 16:21 EST VL Venous Duplex [place] [id number] G[facility] WEEKS Lower Ext Right CPT code 53214 Reason For Exam (VL Venous Duplex US Lower Ext Right) pain Report VENOUS SONOGRAM WITH DOPPLER FLOW IMAGING OF RIGHT LOWER EXTREMITY History: Right leg pain , COVID, concern for DVT. Comparison: None available Technique: Ultrasound and Doppler imaging of the veins of the right lower extremity from the common femoral to the popliteal branches and gastrocnemius veins are provided. Findings: The visualized deep veins of the right lower extremity show unremarkable color Doppler flow and compressibility without evidence of clot. There is normal augmentation. The Doppler waveforms are normal. IMPRESSION: No evidence of DVT in the right lower extremity. Report Dictated on Final Dictating Physician: MD RUTHERFORD AHMAD Signed Date and Time: 11/18/2021 4:27 pm Signed by: MD RUTHERFORD AHMAD Transcribed Date and Time: 11/18/2021 4:28 Cardiovascular ACCESSION EXAM DATE/TIME PROCEDURE [id number] 11/18/2021 16:21 EST VL Venous Duplex US Lower Ext Right CPT code 86226 Reason For Exam (VL Venous Duplex US Lower Ext Right) pain Cardiovascular Report VENOUS SONOGRAM WITH DOPPLER FLOW IMAGING OF RIGHT LOWER EXTREMITY History: Right leg pain , COVID, concern for DVT. Comparison: None available Technique: Ultrasound and Doppler imaging of the veins of the right lower extremity from the common femoral to the popliteal branches and gastrocnemius veins are provided. Findings: The visualized deep veins of the right lower extremity show unremarkable color Doppler flow and compressibility without evidence of clot. There is normal augmentation. The Doppler waveforms are normal. IMPRESSION: No evidence of DVT in the right lower extremity. Report Dictated on Final Dictating Physician: MD RUTHERFORD AHMAD Signed Date and Time: 11/18/2021 4:27 pm Signed by: MD RUTHERFORD AHMAD Transcribed Date and Time: 11/18/2021 4:28 Normal [facility] Thin prep Papanicolaou smear with manual screeningon 10-10-2021 Thin prep Papanicolaou smear with manual screening 176 U/L 87-241 [facility] Work Phone: Basophil percentageon 2020 Basophil percentage 0 SEEN /hpf 0-5 [facility] Bilirubin Test strip Ql (U)o n 09-17-2021 Bilirubin Ql (U) Negative Negative [facility] Ketones Test strip Ql (U)on 09-17-2021 Ketones Ql (U) Negative Negative [facility] Mucus LM Ql (Urine sed)on Mucus Ql (Urine sed) 0 SEEN /hpf [facility] Nitrite Test strip Ql (U)on 09-17-2021 Nitrite Ql (U) Negative Negative [facility] Protein Test strip Ql (U)on 09-17-2021 Protein Ql (U) Negative Negative [facility] Squamous epithelial cells de tection in urine sediment by light microscopyon 09-17-2021 Epithelial cells.squamous LM Ql (Urine sed) 0-5 SEEN /hpf 0-5 [facility] Urine blood detectionon RBC Ql (U) Negative Negative [facility] RBC Ql (U) 0 SEEN /hpf 0-5 [facility] Urine clarityon 09-17-2021 Clarity (U) Sl. Cloudy Clear [facility] Urine color determinationon 09-17-2021 Color (U) Straw Yellow [facility] Urine glucose detectionon Glucose Ql (U) Normal mg/dl Normal [facility] Urine leukocyte esterase det ection by dipstickon 09-17-2021 Leukocyte esterase Test strip Ql (U) 25 /ul High Negative [facility] Urine pHon 09-17-2021 pH (U) 6.5 [pH] 5.0 - 8.0 [facility] Urine sediment bacteria coun t by microscopy (number/high power field)on 09-17-2021 Bacteria LM.HPF (Urine sed) [#/Area] RARE /hpf None Seen [facility] Urine specific gravity measu rementon 09-17-2021 Specific gravity (U) [Rel density] 1.010 1.002-1.030 [facility] Urobilinogen Auto test strip Ql (U)on 09-17-2021 Urobilinogen Ql (U) Normal mg/dl Normal [facility] MRI BRAIN W WO CONTRASTOrder ed By: Esthela Garcia on 08-01-2021 Patient Name: KENN VAUGHN Sr Magnetic Resonance Imaging ACCESSION EXAM DATE/TIME PROCEDURE ORDERING PROVIDER [id number] 08/01/2021 09:31 EDT MRI Brain w/ + w/o ARASH GARCIA, ESTHELA [place] CPT code 81711 Reason For Exam (MRI Brain w/ + w/o Contrast) recent PRES and seizure-need to reassess Report MRI brain with and without contrast HISTORY: Seizures Protocol: Axial T2, FLAIR, diffusion, gradient echo sequences without contrast; coronal T2 and FLAIR sequences without contrast; axial and coronal T1 sequences without contrast; axial sagittal and coronal T1 sequences with contrast COMPARISON: 05/28/2021 The previously seen numerous foci of increased signal on T2 and FLAIR sequences in the bilateral parietal and occipital lobes are no longer seen. There is also considerable improvement of the bilateral periventricular foci. A few tiny foci remain scattered in the deep white matter. These are nonspecific and can be due to chronic ischemic changes. No acute infarcts. No extra-axial fluid collection or hydrocephalus. No mass or mass effect. Cerebral atrophy is again seen. No abnormal enhancement. Considerable mucosal thickening in all of the paranasal sinuses. IMPRESSION: The previously seen numerous foci of increased signal on T2 and FLAIR sequences in the bilateral parietal and occipital lobes are no longer seen. There is also considerable improvement of the bilateral periventricular foci. A few tiny foci remain scattered in the deep white matter. These are nonspecific and can be due to chronic ischemic changes. Considerable mucosal thickening in all of the paranasal sinuses. Report Dictated on --- Final --- Dictating Physician: MD JIMENEZ MALAY Signed Date and Time: 08/01/2021 9:38 am Signed by: MD JIMENEZ MALAY Transcribed Date and Time: 08/01/2021 9:38 [facility] Work Phone: [facility], [facility] Incoming Radiology Results From [facility] - 08/01/2021 9:38 AM EDT Patient Name: KENN ARSHAD Sr [facility]#: [id number] Magnetic Resonance Imaging ACCESSION EXAM DATE/TIME PROCEDURE ORDERING PROVIDER [id number] 08/01/2021 09:31 EDT MRI Brain w/ + w/o ARASH GARCIA, ESTHELA Contrast CPT code 06304 Reason For Exam (MRI Brain w/ + w/o Contrast) recent PRES and seizure-need to reassess Report MRI brain with and without contrast HISTORY: Seizures Protocol: Axial T2, FLAIR, diffusion, gradient echo sequences without contrast; coronal T2 and FLAIR sequences without contrast; axial and coronal T1 sequences without contrast; axial sagittal and coronal T1 sequences with contrast COMPARISON: 05/28/2021 The previously seen numerous foci of increased signal on T2 and FLAIR sequences in the bilateral parietal and occipital lobes are no longer seen. There is also considerable improvement of the bilateral periventricular foci. A few tiny foci remain scattered in the deep white matter. These are nonspecific and can be due to chronic ischemic changes. No acute infarcts. No extra-axial fluid collection or hydrocephalus. No mass or mass effect. Cerebral atrophy is again seen. No abnormal enhancement. Considerable mucosal thickening in all of the paranasal sinuses. IMPRESSION: The previously seen numerous foci of increased signal on T2 and FLAIR sequences in the bilateral parietal and occipital lobes are no longer seen. There is also considerable improvement of the bilateral periventricular foci. A few tiny foci remain scattered in the deep white matter. These are nonspecific and can be due to chronic ischemic changes. Considerable mucosal thickening in all of the paranasal sinuses. Report Dictated on --- Final --- Dictating Physician: MD JIMENEZ MALAY Signed Date and Time: 08/01/2021 9:38 am Signed by: MD JIMENEZ MALAY Transcribed Date and Time: 08/01/2021 9:38 [facility] Work Phone: [facility] Work Phone: MRI Brain w/ + w/o Contrasto n 08-01-2021 MRI Brain w/ + w/o Contrast [facility]: [id number] ACCESSION EXAM DATE/TIME PROCEDURE ORDERING PROVIDER [id number] 08/01/2021 09:31 EDT MRI Brain w/ + w/o GARCIA, CHARGE OUT CLERK, ESTHELA Contrast CPT code 51770 Reason For Exam (MRI Brain w/ + w/o Contrast) recent PRES and seizure-need to reassess Report MRI brain with and without contrast HISTORY: Seizures Protocol: Axial T2, FLAIR, diffusion, gradient echo sequences without contrast; coronal T2 and FLAIR sequences without contrast; axial and coronal T1 sequences without contrast; axial sagittal and coronal T1 sequences with contrast COMPARISON: 05/28/2021 The previously seen numerous foci of increased signal on T2 and FLAIR sequences in the bilateral parietal and occipital lobes are no longer seen. There is also considerable improvement of the bilateral periventricular foci. A few tiny foci remain scattered in the deep white matter. These are nonspecific and can be due to chronic ischemic changes. No acute infarcts. No extra-axial fluid collection or hydrocephalus. No mass or mass effect. Cerebral atrophy is again seen. No abnormal enhancement. Considerable mucosal thickening in all of the paranasal sinuses. IMPRESSION: The previously seen numerous foci of increased signal on T2 and FLAIR sequences in the bilateral parietal and occipital lobes are no longer seen. There is also considerable improvement of the bilateral periventricular foci. A few tiny foci remain scattered in the deep white matter. These are nonspecific and can be due to chronic ischemic changes. Considerable mucosal thickening in all of the paranasal sinuses. Report Dictated on Final Dictating Physician: MD JIMENEZ MALAY Signed Date and Time: 08/01/2021 9:38 am Signed by: MD JIMENEZ MALAY Transcribed Date and Time: 08/01/2021 9:38 Normal [facility] No Panel Informationon 07-09 Prostate Specific Antigen Screen 1.54 ng/mL 0.00-4.00 [facility] Comment on above: This test was perfor med using the TPSA assay method for the[employer] chemistry system. Values obtained with differentassay methods cannot be used interchangably.When changing PSA assays in the course of monitoring apatient, additional sequential testing should be carriedout to confirm baseline values. 1.54 ng/mL 0.00-4.00 [facility] Levetiracetamon 06-22-2021 levETIRAcetam [Mass/Vol] 16 ug/mL Normal 12-46 [facility] Comment on above: Result Comment: INTE RPRETIVE INFORMATION: Keppra (Levetiracetam) Therapeutic Range: 12-46 ug/mL Toxic: Not well Established Pharmacokinetics of levetiracetam are affected by renal function. Adverse effects may include somnolence, weakness, headache and vomiting. This levetiracetam (Keppra) immunoassay uses the [employer] reagents, which has known cross-reactivity with the drug brivaracetam (Briviact) and may report inaccurate results. Patients transitioning from levetiracetam to brivaracetam or those who are using both medications should not monitor drug concentrations with the [employer] assay. These patients should be monitored using a validated chromatographic methodology that distinguishes between drugs to determine drug concentrations. Performed By: [employer] ([employer]) [address] [place] [id number] Flower Maker: Ana Zepeda MD Performed By: #### L SADAF #### The performing lab is in the report. Blood platelet adequacy dete ction by light microscopyon 06-18-2021 Platelets LM Ql (Bld) ADEQUATE ADEQ [facility] Work Phone: Review by pathologiston 06-09 Pathologist review [place] (Unsp spec) [Interp] Reviewed [facility] Work Phone: Comment on above: Previous reported re sult: Samira rehman Edited by: VERITO on 06/20/21:09lymphopeniaNormocytic anemia.Clinical correlation suggested.Jag Pickard D.O. 06/20/21 AMENDED REPORT 06/20/21 0901 PATH REV previously reported as: Samira rehman Hemoglobin A1Con 05-17-2021 Glucose [Mass/Vol] 111 mg/dL Normal [facility] Comment on above: Performed By: #### H CHARLOTTE IVAN #### [address] [address] HbA1c (Bld) [Mass fraction] 5.5 % Normal [facility] Comment on above: Result Comment: Norm al less than 5.7% Prediabetes 5.7% to 6.4% Diabetes 6.5% or higher --HgbA1C levels may not be accurate in patients who have renal disease, received recent blood transfusions, are anemic, or who have dyshemoglobinemia. Performed By: #### H CHARLOTTE IVAN #### [address] [address] [place], [place] Hemoglobin [id number] By: Altgaracia Morin on 05-17-2021 HbA1c (Bld) [Mass fraction] 5.5 % [facility] Work Phone: Comment on above: Normal less than 5.7 % Prediabetes 5.7% to 6.4% Diabetes 6.5% or higher --HgbA1C levels may not be accurate in patients who have renal disease, received recent blood transfusions, are anemic, or who have dyshemoglobinemia. Magnesium [Mass/Vol] 111 mg/dL [facility] Work Phone: Test Performed by [facility], [address] [place] [address] [facility] Work Phone: [facility] Work Phone: Basic Metabolic Panelon 07-0 Anion gap [Moles/Vol] 10 mmol/L Normal 3-13 [facility] Comment on above: Performed By: #### B MP3M, MG3, HEMDF #### [address] [address] [place] [address] Calcium [Mass/Vol] 8.3 mg/dL Low 8.4-10.4 [facility] Comment on above: Performed By: #### B MP3M, MG3, HEMDF #### [facility] [address] [place], [place] CO2 [Moles/Vol] 18 mmol/L Low 22-30 [facility] Comment on above: Performed By: #### B MP3M, MG3, HEMDF #### [address] [address] [place] [place], [place] Creatinine [Mass/Vol] 0.79 mg/dL Normal 0.52-1.25 [facility] Comment on above: Performed By: #### B MP3M, MG3, HEMDF #### [address] [address] [place], [place] eGFR OTHER > 90.0 Normal >60 [facility] Comment on above: Result Comment: KDIG O guidelines provide the following GFR categories: Stage GFR(ml/min/1.73 m2) Terms G1 >=90 Normal or high G2 60-89 Mildly decreased* G3a 45-59 Mildly to moderately decreased G3b 30-44 Moderately to severely decreased G4 15-29 Severely decreased G5 <15 Kidney failure *Relative to young adult level. In the absence of evidence of kidney damage, neither GFR category G1 nor G2 fulfill the criteria for CKD. The CKD-EPI equation is validated in individuals 18 years of age and older. Currently the best equation for estimating glomerular filtration rate (GFR) from serum creatinine in children is the Bedside Almodovar equation. It is less accurate in patients with extremes of muscle mass, restriction of dietary protein, ingestion of creatine, extra-renal metabolism of creatinine, or treatment with medications that affect renal tubular creatinine secretion. Performed By: #### B MP3M MG3, HEMDF #### [address] [address] [address] [place], [place] GFR/1.73 sq M.predicted among blacks MDRD (S/P/Bld) [Vol rate/Area] mL/min/{1.73_m2} Normal >60 [facility] Comment on above: Performed By: #### B MP3M MG3, HEMDF #### [address] Glucose [Mass/Vol] 97 mg/dL Normal 70-100 [facility] Comment on above: Performed By: #### B MP3M, MG3, HEMDF #### [address] [address] [place] [place], [place] Urea nitrogen [Mass/Vol] 11 mg/dL Normal 7-20 [facility] Comment on above: Performed By: #### B MP3M, MG3, HEMDF #### [facility] [address] [place], [place] Chloride [Moles/Vol] 110 mmol/L High 98-107 [facility] Comment on above: Performed By: #### B MP3M, MG3, HEMDF #### [address] [address] [address] [place], [place] Potassium [Moles/Vol] 3.3 mmol/L Low 3.5-5.1 [facility] Comment on above: Performed By: #### B MP3M, MG3, HEMDF #### [facility] [address] [place], [place] Sodium [Moles/Vol] 138 mmol/L Normal 135-145 [facility] Comment on above: Performed By: #### B MP3M, MG3, HEMDF #### [facility] [address] [place], [place] Basic Metabolic Panel w/ Ref jeovany to MGOrdered By: Carine Morin on 05-16-2021 Anion gap [Moles/Vol] 10 mmol/L 3 - 13 mmol/L [facility] Work Phone: Calcium [Mass/Vol] 8.3 mg/dL Low 8.4 - 10. 4 mg/dL [facility] Work Phone: Chloride [Moles/Vol] 110 mmol/L High 98 - 10 7 mmol/L [facility] Work Phone: CO2 [Moles/Vol] 18 mmol/L Low 22 - 30 mmol/L [facility] Work Phone: [phone] Creatinine [Mass/Vol] 0.79 mg/dL 0.52 - 1.25 mg/dL [facility] Work Phone: [phone] EGFR IF NonAfrican Gibraltarian >90.0 >60 mL/min [facility] Work Phone: Comment on above: KDIGO guidelines pro vide the following GFR categories: Stage GFR(ml/min/1.73 m2) Terms G1 >=90 Normal or high G2 60-89 Mildly decreased* G3a 45-59 Mildly to moderately decreased G3b 30-44 Moderately to severely decreased G4 15-29 Severely decreased G5 <15 Kidney failure *Relative to young adult level. In the absence of evidence of kidney damage, neither GFR category G1 nor G2 fulfill the criteria for CKD. The CKD-EPI equation is validated in individuals 18 years of age and older. Currently the best equation for estimating glomerular filtration rate (GFR) from serum creatinine in children is the Bedside Almodovar equation. It is less accurate in patients with extremes of muscle mass, restriction of dietary protein, ingestion of creatine, extra-renal metabolism of creatinine, or treatment with medications that affect renal tubular creatinine secretion. GFR/1.73 sq M.predicted among blacks MDRD (S/P/Bld) [Vol rate/Area] mL/min/{1.73_m2} >60 mL/min [facility] Work Phone: Glucose [Mass/Vol] 97 mg/dL 70 - 100 mg/dL [facility] Work Phone: Interpretation and review of laboratory results Abnormal [facility] Work Phone: Potassium [Moles/Vol] 3.3 mmol/L Low 3.5 - 5.1 mmol/L [facility] Work Phone: Sodium [Moles/Vol] 138 mmol/L 135 - 145 mmol/L [facility] Work Phone: Urea nitrogen (BldV) [Mass/Vol] 11 mg/dL 7 - 20 mg/dL [facility] Work Phone: Test Performed by [address] [address] [facility] Work Phone: [facility] Work Phone: CBCOrdered By: Celsa rey on 05-16-2021 Hematocrit (Bld) [Volume fraction] 34.8 % Low 40.0 - 52.0 % [facility] Work Phone: [phone] Hemoglobin.gastrointes tinal spec 1 Ql (Stl) 12.0 g/dL Low 13.0 - 18.0 g/dL [facility] Work Phone: [phone] Interpretation and review of laboratory results Abnormal [facility] Work Phone: MCH (RBC) [Entitic mass] 27.0 pg 26.0 - 34.0 pg [facility] Work Phone: MCHC (RBC) [Mass/Vol] 34.6 % 32.0 - 36.0 % [facility] Work Phone: MCV (RBC) [Entitic vol] 78.1 fL Low 80.0 - 98.0 fL [facility] Work Phone: Platelet distribution width (Bld) [Ratio] 14.6 % High 11.5 - 14.5 % [facility] Work Phone: Platelet mean volume (Bld) [Entitic vol] 7.8 fL 7.4 - 10.4 fL [facility] Work Phone: 222 Platelets (Bld) [#/Vol] 147 10*3/uL 140 - 440 10*3/uL [facility] Work Phone: 222 RBC (Bld) [#/Vol] 4.46 10*6/uL 4.40 - 5.9 0 10*6/uL [facility] Work Phone: 222 WBC (Bld) [#/Vol] 5.9 10*3/uL 3.6 - 10.7 10*3/uL [facility] Work Phone: Test Performed by [facility], [address] [place] [address] [facility] Work Phone: [facility] Work Phone: [phone] CBC Auto DifferentialOrdered By: Carine Morin on 05-16-2021 Absolute Baso # 0.1 10*3/uL 0.0 - 0.2 10*3/uL [facility] Work Phone: [phone] Absolute Neut # 4.4 10*3/uL 1.8 - 7.0 10*3/uL [facility] Work Phone: 222 Basophils/100 WBC (Bld) 1.5 % 0.0 - 2.0 % [facility] Work Phone: 222 Eosinophils (Bld) [#/Vol] 0.3 10*3/uL 0.0 - 0.5 10*3/uL [facility] Work Phone: [phone]) 222 Eosinophils/100 WBC (Bld) 4.9 % 1.0 - 6.0 % [facility] Work Phone: () 222 Granulocytes/100 WBC (Bld) 72.4 % 40.0 - 80.0 % [facility] Work Phone: [phone] Hematocrit (Bld) [Volume fraction] 36.5 % Low 40.0 - 52.0 % [facility] Work Phone: ) 222 Hemoglobin.gastrointes tinal spec 1 Ql (Stl) 12.5 g/dL Low 13.0 - 18.0 g/dL [facility] Work Phone: [phone] Interpretation and review of laboratory results Abnormal [facility] Work Phone: () 222 Lymphocytes (Bld) [#/Vol] 0.8 10*3/uL Low 1.0 - 4.3 10*3/uL [facility] Work Phone: ) 222 Lymphocytes/100 WBC (Bld) 13.8 % Low 20.0 - 40.0 % [facility] Work Phone: [phone]) 222 MCH (RBC) [Entitic mass] 27.3 pg 26.0 - 34.0 pg [facility] Work Phone: ) 222 MCHC (RBC) [Mass/Vol] 34.2 % 32.0 - 36.0 % [facility] Work Phone: [phone] MCV (RBC) [Entitic vol] 80.0 fL 80.0 - 98.0 fL [facility] Work Phone: () 222 Monocytes (Bld) [#/Vol] 0.5 10*3/uL 0.0 - 0.8 10*3/uL [facility] Work Phone: () 222 Monocytes/100 WBC (Bld) 7.4 % 2.0 - 10.0 % [facility] Work Phone: [phone] Platelet distribution width (Bld) [Ratio] 14.8 % High 11.5 - 14.5 % [facility] Work Phone: ) 222 Platelet mean volume (Bld) [Entitic vol] 7.6 fL 7.4 - 10.4 fL [facility] Work Phone: [phone] Platelets (Bld) [#/Vol] 136 10*3/uL Low 140 - 440 10*3/uL [facility] Work Phone: RBC (Bld) [#/Vol] 4.57 10*6/uL 4.40 - 5.9 0 10*6/uL [facility] Work Phone: [phone] WBC (Bld) [#/Vol] 6.1 10*3/uL 3.6 - 10.7 10*3/uL [facility] Work Phone: [phone] Test Performed by [facility], [address] [place] [address] [facility] Work Phone: [phone] [facility] Work Phone: [phone] CR Abdomen APon 05-16-2021 CR Abdomen AP Patient Name: KENN VAUGHN Sr Diagnostic Radiology ACCESSION EXAM DATE/TIME PROCEDURE ORDERING PROVIDER [id number] 05/16/2021 09:51 EDT CR Abdomen AP MD SHANEKA., CARINE [place] CPT code 64667 Reason For Exam (CR Abdomen AP) MRI clearance Report ABDOMEN -1 VIEW: CLINICAL INDICATION: MRI clearance TECHNIQUE: 1 view of abdomen and pelvis COMPARISON: None. FINDINGS: The bowel gas pattern is nonspecific, nonobstructed. No abnormal soft tissue calcifications are identified. Multilevel thoracolumbar degenerative change. IMPRESSION: Unremarkable abdominal radiographs. No foreign bodies or other objects to preclude MRI on this exam. Report Dictated on Final Dictated: 05/16/2021 7:15 pm Dictating Physician: MD DONNELLY JASON Signed Date and Time: 05/16/2021 7:16 pm Signed by: MD DONNELLY JASON Transcribed Date and Time: 05/16/2021 7:15 Normal [facility] Comp Panel with Mg Reflexon 05-16-2021 ALP [Catalytic activity/Vol] 55 U/L Normal 38-126 [facility] Comment on above: Performed By: #### T ROPN, MG3, HA1C2, HEMOG, CMP3M, LIPD2 #### [address] [address] [address] [place], [place] ALT [Catalytic activity/Vol] 10 U/L Normal 0-49 [facility] Comment on above: Result Comment: The ALT test is performed by an updated assay method. Please note that the reference intervals have been changed and are now sex specific. Performed By: #### T ROPN, MG3, HA1C2, HEMOG, CMP3M, LIPD2 #### [address] [address] [place] [place], [place] Anion gap [Moles/Vol] 9 mmol/L Normal 3-13 [facility] Comment on above: Performed By: #### T ROPN, MG3, HA1C2, HEMOG, CMP3M, LIPD2 #### [address] [address] [place] [place], [place] AST [Catalytic activity/Vol] 20 U/L Normal 15-46 [facility] Comment on above: Performed By: #### T ROPN, MG3, HA1C2, HEMOG, CMP3M, LIPD2 #### [address] [address] [place] [place], [place] Bilirubin [Mass/Vol] 0.5 mg/dL Normal 0.2-1.3 [facility] Comment on above: Performed By: #### T ROPN, MG3, HA1C2, HEMOG, CMP3M, LIPD2 #### [address] [address] [address] [place], [place] Calcium [Mass/Vol] 8.3 mg/dL Low 8.4-10.4 [facility] Comment on above: Performed By: #### T ROPN, MG3, HA1C2, HEMOG, CMP3M, LIPD2 #### [address] [address] [address] [place], [place] CO2 [Moles/Vol] 18 mmol/L Low 22-30 [facility] Comment on above: Performed By: #### T ROPN, MG3, HA1C2, HEMOG, CMP3M, LIPD2 #### [address] [address] [place] [address] Creatinine [Mass/Vol] 0.87 mg/dL Normal 0.52-1.25 [facility] Comment on above: Performed By: #### T ROPN, MG3, HA1C2, HEMOG, CMP3M, LIPD2 #### [facility] [address] [place] [address] GFR/1.73 sq M.predicted among blacks MDRD (S/P/Bld) [Vol rate/Area] mL/min/{1.73_m2} Normal >60 [facility] Comment on above: Performed By: #### T ROPN, MG3, HA1C2, HEMOG, CMP3M, LIPD2 #### [address] [address] [place] [address] GFR/1.73 sq M.predicted among non-blacks MDRD (S/P/Bld) [Vol rate/Area] 88.9 mL/min/{1.73_m2} Normal >60 [facility] Comment on above: Result Comment: KDIG O guidelines provide the following GFR categories: Stage GFR(ml/min/1.73 m2) Terms G1 >=90 Normal or high G2 60-89 Mildly decreased* G3a 45-59 Mildly to moderately decreased G3b 30-44 Moderately to severely decreased G4 15-29 Severely decreased G5 <15 Kidney failure *Relative to young adult level. In the absence of evidence of kidney damage, neither GFR category G1 nor G2 fulfill the criteria for CKD. The CKD-EPI equation is validated in individuals 18 years of age and older. Currently the best equation for estimating glomerular filtration rate (GFR) from serum creatinine in children is the Bedside Almodovar equation. It is less accurate in patients with extremes of muscle mass, restriction of dietary protein, ingestion of creatine, extra-renal metabolism of creatinine, or treatment with medications that affect renal tubular creatinine secretion. Performed By: #### T ROPN, MG3, HA1C2, HEMOG, CMP3M, LIPD2 #### [facility] [address] [place] [address] Glucose [Mass/Vol] 87 mg/dL Normal 70-100 [facility] Comment on above: Performed By: #### T ROPN, MG3, HA1C2, HEMOG, CMP3M, LIPD2 #### [address] [address] [address] [place], [place] Protein [Mass/Vol] 5.8 g/dL Low 6.3-8.2 [facility] Comment on above: Performed By: #### T ROPN, MG3, HA1C2, HEMOG, CMP3M, LIPD2 #### [address] [address] [place], [place] Urea nitrogen [Mass/Vol] 13 mg/dL Normal 7-20 [facility] Comment on above: Performed By: #### T ROPN, MG3, HA1C2, HEMOG, CMP3M, LIPD2 #### [address] [address] [place], [place] Albumin [Mass/Vol] 3.3 g/dL Low 3.5-5.0 [facility] Comment on above: Performed By: #### T ROPN, MG3, HA1C2, HEMOG, CMP3M, LIPD2 #### [address] [address] [place], [place] Potassium [Moles/Vol] 3.3 mmol/L Low 3.5-5.1 [facility] Comment on above: Performed By: #### T ROPN, MG3, HA1C2, HEMOG, CMP3M, LIPD2 #### [address] [address] [place], [place] Sodium [Moles/Vol] 136 mmol/L Normal 135-145 [facility] Comment on above: Performed By: #### T ROPN, MG3, HA1C2, HEMOG, CMP3M, LIPD2 #### [address] [address] [place], [place] Chloride [Moles/Vol] 109 mmol/L High 98-107 [facility] Comment on above: Performed By: #### T ROPN, MG3, HA1C2, HEMOG, CMP3M, LIPD2 #### [address] [address] [address], [place] Comprehensive Metabolic Pane l w/ Reflex to MGOrdered By: Celsa Wu on 05-16-2021 Albumin [Mass/Vol] 3.3 g/dL Low 3.5 - 5.0 g/dL [facility] Work Phone: [phone] ALP (Bld) [Catalytic activity/Vol] 55 U/L 38 - 126 U/L [facility] Work Phone: ALT [Catalytic activity/Vol] 10 U/L 0 - 49 U/L [facility] Work Phone: [phone] Comment on above: The ALT test is perf ormed by an updated assay method. Please note that the reference intervals have been changed and are now sex specific. Anion gap [Moles/Vol] 9 mmol/L 3 - 13 mmol/L [facility] Work Phone: [phone] AST [Catalytic activity/Vol] 20 U/L 15 - 46 U/L [facility] Work Phone: [phone] Bilirubin [Mass/Vol] 0.5 mg/dL 0.2 - 1 .3 mg/dL [facility] Work Phone: [phone] Calcium [Mass/Vol] 8.3 mg/dL Low 8.4 - 10. 4 mg/dL [facility] Work Phone: [phone] Chloride [Moles/Vol] 109 mmol/L High 98 - 10 7 mmol/L [facility] Work Phone: [phone] CO2 [Moles/Vol] 18 mmol/L Low 22 - 30 mmol/L [facility] Work Phone: [phone] Creatinine [Mass/Vol] 0.87 mg/dL 0.52 - 1.25 mg/dL [facility] Work Phone: EGFR IF NonAfrican Gibraltarian 88.9 mL/min >60 [facility] Work Phone: Comment on above: KDIGO guidelines pro vide the following GFR categories: Stage GFR(ml/min/1.73 m2) Terms G1 >=90 Normal or high G2 60-89 Mildly decreased* G3a 45-59 Mildly to moderately decreased G3b 30-44 Moderately to severely decreased G4 15-29 Severely decreased G5 <15 Kidney failure *Relative to young adult level. In the absence of evidence of kidney damage, neither GFR category G1 nor G2 fulfill the criteria for CKD. The CKD-EPI equation is validated in individuals 18 years of age and older. Currently the best equation for estimating glomerular filtration rate (GFR) from serum creatinine in children is the Bedside Almodovar equation. It is less accurate in patients with extremes of muscle mass, restriction of dietary protein, ingestion of creatine, extra-renal metabolism of creatinine, or treatment with medications that affect renal tubular creatinine secretion. Free PSA/Total PSA [Mass fraction] 5.8 g/dL Low 6.3 - 8.2 g/dL [facility] Work Phone: GFR/1.73 sq M.predicted among blacks MDRD (S/P/Bld) [Vol rate/Area] mL/min/{1.73_m2} >60 mL/min [facility] Work Phone: Glucose [Mass/Vol] 87 mg/dL 70 - 100 mg/dL [facility] Work Phone: Potassium [Moles/Vol] 3.3 mmol/L Low 3.5 - 5.1 mmol/L [facility] Work Phone: Sodium [Moles/Vol] 136 mmol/L 135 - 145 mmol/L [facility] Work Phone: Urea nitrogen (BldV) [Mass/Vol] 13 mg/dL 7 - 20 mg/dL [facility] Work Phone: ECHO Complete 2D W Doppler W ColorOrdered By: Celsa Wu on 05-16-2021 TRANSTHORACIC ECHOCARDIOGRAM PATIENT: Kenn Arshad STUDY DATE: 05/16/2021 : 1955 AGE: 65 HT/WT: 165.1 cm (65 86.2 kg (189.6 in) lb) GENDER: M BP: 162 / 69 LOCATION: [facility] PATIENT Inpatient main STATUS: *ORDERING PHYSICIAN: * Celsa Wu *READING PHYSICIAN: * Lj Nelson, *INSPECTOR CHIEF: * Milena Luz RDCS, MD AE INDICATIONS: HTN. HISTORY: History of stents x5 in the . CONCLUSIONS SUMMARY: 1. Left ventricle: The cavity size is normal. Wall thickness is normal. Systolic function is normal by visual assessment. The estimated ejection fraction is 70%. 2. Left atrium: The atrium is mildly dilated. 3. Aortic valve: Trileaflet; moderately thickened leaflets. There is mild stenosis. There is moderate, 2+ regurgitation. The peak systolic velocity is 2.1 m/sec. The mean systolic gradient is 8 mm Hg. STUDY DATA: Complete transthoracic echocardiogram. Procedure: Image quality was adequate to suboptimal. The study was technically limited due to respiratory interference. Intravenous imaging enhancement (Definity) was administered to opacify the chamber and enhance Doppler signals. Definity lot #: [id number]. M-mode, complete 2D, complete spectral Doppler, and color flow Doppler images were acquired and archived for permanent storage and are available for subsequent review. Study status: Routine. Patient status: Inpatient. FINDINGS LEFT VENTRICLE: Not well visualized. The cavity size is normal. Wall thickness is normal. Systolic function is normal by visual assessment. The estimated ejection fraction is 70%. There are no regional wall motion abnormalities. RIGHT VENTRICLE: Not well visualized. The cavity size is mildly dilated. Systolic function is normal. VENTRICULAR SEPTUM: There is no evidence of a ventricular septal defect. LEFT ATRIUM: The atrium is mildly dilated. RIGHT ATRIUM: The atrium is normal in size. ATRIAL SEPTUM: Not well visualized. Color Doppler shows no shunt. MITRAL VALVE: Structurally normal valve. Doppler: There is trivial, less than 1+ regurgitation. AORTIC VALVE: Not well visualized. Trileaflet; moderately thickened leaflets. Doppler: There is mild stenosis. There is moderate, 2+ regurgitation. Dimensionless index: 0.46. The valve area by the velocity-time integral method is 1.5 cm^2. The valve area index by the velocity-time integral method is 0.7 cm^2/m^2. The mean systolic gradient is 8 mm Hg. The peak systolic gradient is 18 mm Hg. The peak systolic velocity is 2.1 m/sec. TRICUSPID VALVE: Not well visualized. Structurally normal valve. Doppler: There is trivial, less than 1+ regurgitation. PULMONIC VALVE: Not well visualized. Structurally normal valve. Doppler: There is no evidence for stenosis. There is trivial, less than 1+ regurgitation. AORTA: The aorta is normal. PULMONARY ARTERY: Main pulmonary artery: Normal. PERICARDIUM: There is no pericardial effusion. SYSTEMIC VEINS: Inferior vena cava: The vessel is mildly dilated. Measurements Left ventricle Value Reference LV ID, ED 4.8 cm 4.2 - 5.8 LV ID, ES 3.1 cm 2.5 - 4.0 LV ID/bsa, ED 2.4 cm/m^2 2.2 - 3.0 LV ID/bsa, ES 1.5 cm/m^2 1.3 - 2.1 LV PW thickness, ED 0.9 cm 0.6 - 1.0 LV PW/LV ID ratio, ED 0.19 --------- LV wall mass 149 g 96 - 200 LV wall mass/bsa 74 g/m^2 50 - 102 Stroke volume/bsa, 1-p A2C 52.6 ml/m^2 --------- LV end-diastolic volume, 1-p A4C 133 ml 69 - 185 LV end-systolic volume, 1-p A4C 38 ml 22 - 78 LV end-diastolic volume, 2-p 138 ml 62 - 150 LV end-systolic volume, 2-p 36 ml 21 - 61 LV E/e', lateral 5 --------- LV E/e', medial 7.6 --------- LV E/e', average 6 --------- Ventricular septum Value (more content not included)... [facility] Work Phone: Ronnie, [employer] Incoming Cardiology Results From [facility]/Patricia - 05/16/2021 5:03 PM EDT TRANSTHORACIC ECHOCARDIOGRAM PATIENT: Kenn Arshad STUDY DATE: 05/16/2021 : 1955 AGE: 65 HT/WT: 165.1 cm (65 86.2 kg (189.6 in) lb) GENDER: M BP: 162 / 69 LOCATION: [facility] PATIENT Inpatient main STATUS: *ORDERING PHYSICIAN: * Celsa Wu *READING PHYSICIAN: * Lj Nelson, *INSPECTOR CHIEF: * Milena Luz RDCS, MD AE INDICATIONS: HTN. HISTORY: History of stents x5 in the . CONCLUSIONS SUMMARY: 1. Left ventricle: The cavity size is normal. Wall thickness is normal. Systolic function is normal by visual assessment. The estimated ejection fraction is 70%. 2. Left atrium: The atrium is mildly dilated. 3. Aortic valve: Trileaflet; moderately thickened leaflets. There is mild stenosis. There is moderate, 2+ regurgitation. The peak systolic velocity is 2.1 m/sec. The mean systolic gradient is 8 mm Hg. STUDY DATA: Complete transthoracic echocardiogram. Procedure: Image quality was adequate to suboptimal. The study was technically limited due to respiratory interference. Intravenous imaging enhancement (Definity) was administered to opacify the chamber and enhance Doppler signals. Definity lot #: [id number]. M-mode, complete 2D, complete spectral Doppler, and color flow Doppler images were acquired and archived for permanent storage and are available for subsequent review. Study status: Routine. Patient status: Inpatient. FINDINGS LEFT VENTRICLE: Not well visualized. The cavity size is normal. Wall thickness is normal. Systolic function is normal by visual assessment. The estimated ejection fraction is 70%. There are no regional wall motion abnormalities. RIGHT VENTRICLE: Not well visualized. The cavity size is mildly dilated. Systolic function is normal. VENTRICULAR SEPTUM: There is no evidence of a ventricular septal defect. LEFT ATRIUM: The atrium is mildly dilated. RIGHT ATRIUM: The atrium is normal in size. ATRIAL SEPTUM: Not well visualized. Color Doppler shows no shunt. MITRAL VALVE: Structurally normal valve. Doppler: There is trivial, less than 1+ regurgitation. AORTIC VALVE: Not well visualized. Trileaflet; moderately thickened leaflets. Doppler: There is mild stenosis. There is moderate, 2+ regurgitation. Dimensionless index: 0.46. The valve area by the velocity-time integral method is 1.5 cm^2. The valve area index by the velocity-time integral method is 0.7 cm^2/m^2. The mean systolic gradient is 8 mm Hg. The peak systolic gradient is 18 mm Hg. The peak systolic velocity is 2.1 m/sec. TRICUSPID VALVE: Not well visualized. Structurally normal valve. Doppler: There is trivial, less than 1+ regurgitation. PULMONIC VALVE: Not well visualized. Structurally normal valve. Doppler: There is no evidence for stenosis. There is trivial, less than 1+ regurgitation. AORTA: The aorta is normal. PULMONARY ARTERY: Main pulmonary artery: Normal. PERICARDIUM: There is no pericardial effusion. SYSTEMIC VEINS: Inferior vena cava: The vessel is mildly dilated. Measurements Left ventricle Value Reference LV ID, ED 4.8 cm 4.2 - 5.8 LV ID, ES 3.1 cm 2.5 - 4.0 LV ID/bsa, ED 2.4 cm/m^2 2.2 - 3.0 LV ID/bsa, ES 1.5 cm/m^2 1.3 - 2.1 LV PW thickness, ED 0.9 cm 0.6 - 1.0 LV PW/LV ID ratio, ED 0.19 --------- LV wall mass 149 g 96 - 200 LV wall mass/bsa 74 g/m^2 50 - 102 Stroke volume/bsa, 1-p A2C 52.6 ml/m^2 --------- LV end-diastolic volume, 1-p A4C 133 ml 69 - 185 LV end-systolic volume, 1-p A4C 38 ml 22 - 78 LV end-diastolic volume, 2-p 138 ml 62 - 150 LV end-systolic volume, 2-p 36 ml 21 - 61 LV E/e', lateral 5 --------- LV E/e', medial 7.6 --------- LV E/e', average 6 --------- Ventricular septum Value Reference IVS thickness, ED 0.9 cm 0.6 - 1.0 LVOT Value Reference LVOT ID, A-P 2.0 cm --------- LVOT mean velocity, S 0.6 m/sec --------- LVOT peak gradient, S 4 mm Hg --------- Stroke volume (SV), LVOT DP 69 ml --------- Stroke index (SV/bsa), LVOT DP 34 ml/m^2 --------- Aortic valve Value Reference Aortic valve peak velocity, S 2.1 m/sec --------- Aortic valve mean velocity, S 1.3 m/sec --------- Aortic mean gradient, S 8 mm Hg --------- Aortic peak gradient, S 18 mm Hg --------- DI 0.46 --------- Aortic valve area, VTI 1.5 cm^2 --------- Aortic valve area/bsa, VTI (more content not included)... [employer] Work Phone: [employer] Work Phone: EEGOrdered By: Celsa rey on 05-16-2021 Anthony Rosales MD 05/17 10:56 AM Reason for EEG: New onset seizure, altered mental state rule out ongoing seizure. Technical comments: The total duration of this EEG is 26 minutes and 07 seconds. The patient was cooperative. Hyperventilation was not performed due to the patient related factors. Some movement, EKG, myogenic, and lead artifacts were recorded however, overall, this EEG is adequate for reading and interpretation. EEG was reviewed using Referential, Longitudinal and Bipolar montages. General Description: This was a 20 channel, awake and drowsy EEG recording with international 10/20 electrode placement. The background activity consisted of symmetrical, posterior dominant, low-medium amplitude, well organized, 10 to 11 Hz alpha. Eye opening and photic stimulation produced no abnormalities. Photic stimulation produced appropriate home adequate and symmetrical driving. A few episodes of brief duration of stage I sleep were recorded with appropriate electrographic changes. No epileptiform discharges were recorded during this EEG. No electrographic seizures were recorded during this EEG. No other electrographic abnormalities were recorded during this EEG. EKG showed Sinus arrhythmia with a heart rate of about 60 beats per minute. Clinical Impression: This EEG is NORMAL. No electrographic seizures are recorded during this EEG. It should be noted that the absence of seizure activity in an EEG recording does not rule out the diagnosis of a seizure disorder, clinical correlation is advised. Recommendations: Per discretion of the ordering provider. Thank you. 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 : 1955 Requested By: TONO BIRCH Order Number: [id number] Reading MD: Pradeep Atkinson Measurements Intervals [place] Rate: 83 P: 76 IL: 190 QRS: 9 QRSD: 93 T: 27 QT: 418 QTc: 492 Interpretive Statements Sinus rhythm Minimal ST depression, anterolateral leads Borderline prolonged QT interval Compared to ECG 05/15/2021 09:49:32 ST (T wave) deviation now present Electronically Signed On 05-16-2021 12:17:07 EDT by Pradeep Atkinson [facility] Work Phone: Ronnie, [facility] Incoming Cardiology Results From [facility] - 05/16/2021 12:18 PM EDT UpTo Test Date: 2021-05-15 Pat Name: KENN ARSHAD Department: [facility] Room: 1325 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: M 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 Hand: [facility] : 1955 Requested By: TONO BIRCH Order Number: [id number] Reading MD: Pradeep Atkinson Measurements Intervals [place] Rate: 83 P: 76 IL: 190 QRS: 9 QRSD: 93 T: 27 QT: 418 QTc: 492 Interpretive Statements Sinus rhythm Minimal ST depression, anterolateral leads Borderline prolonged QT interval Compared to ECG 05/15/2021 09:49:32 ST (T wave) deviation now present Electronically Signed On 05-16-2021 12:17:07 EDT by Pradeep PALACIOS Work Phone: [employer] Work Phone: EKG 12 Lead if not already d one by SquadOrdered By: Tono Birch on 05-16-2021 [facility] Test Date: 2021-05-15 Pat Name: KENN ARSHAD Department: [facility] Room: 1325 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 Hand: [facility] : 1955 Requested By: TONO BIRCH Order Number: [id number] Reading MD: Pradeep Atkinson Measurements Intervals [place] Rate: 75 P: 71 IL: 177 QRS: 1 QRSD: 97 T: 32 QT: 426 QTc: 476 Interpretive Statements Sinus rhythm Borderline prolonged QT interval Electronically Signed On 05-16-2021 9:47:40 EDT by Pradeep Atkinson [employer] Phone: [employer] Work Phone: Echo Complete w/wo Contrasto n 05-16-2021 Echo Complete w/wo Contrast Patient Name: KENN ARSHAD Sr Ultrasound ACCESSION EXAM DATE/TIME PROCEDURE ORDERING PROVIDER [id number] 05/16/2021 13:06 EDT Echo Complete w/wo ARASH WU, CELSA Hastings Contrast Reason For Exam (Echo Complete w/wo Contrast) HTN Report [facility] TRANSTHORACIC ECHOCARDIOGRAM PATIENT: Kenn Arshad STUDY DATE: 05/16/2021 : 1955 AGE: 65 HT/WT: 165.1 cm (65 86.2 kg (189.6 in) lb) GENDER: M BP: 162 / 69 LOCATION: [facility] PATIENT Inpatient main STATUS: *ORDERING PHYSICIAN: * Celsa Wu *READING PHYSICIAN: * Lj Nelson, *INSPECTOR CHIEF: * Milena Luz RDCS, MD AE INDICATIONS: HTN. HISTORY: History of stents x5 in the 's. CONCLUSIONS SUMMARY: 1. Left ventricle: The cavity size is normal. Wall thickness is normal. Systolic function is normal by visual assessment. The estimated ejection fraction is 70%. 2. Left atrium: The atrium is mildly dilated. 3. Aortic valve: Trileaflet; moderately thickened leaflets. There is mild stenosis. There is moderate, 2+ regurgitation. The peak systolic velocity is 2.1 m/sec. The mean systolic gradient is 8 mm Hg. STUDY DATA: Complete transthoracic echocardiogram. Procedure: Image quality was adequate to suboptimal. The study was technically limited due to respiratory interference. Intravenous imaging enhancement (Definity) was administered to opacify the chamber and enhance Doppler signals. Definity lot #: [id number]. M-mode, complete 2D, complete spectral Doppler, and color flow Doppler images were acquired and archived for permanent storage and are available for subsequent review. Study status: Routine. Patient status: Inpatient. Ultrasound Report FINDINGS LEFT VENTRICLE: Not well visualized. The cavity size is normal. Wall thickness is normal. Systolic function is normal by visual assessment. The estimated ejection fraction is 70%. There are no regional wall motion abnormalities. RIGHT VENTRICLE: Not well visualized. The cavity size is mildly dilated. Systolic function is normal. VENTRICULAR SEPTUM: There is no evidence of a ventricular septal defect. LEFT ATRIUM: The atrium is mildly dilated. RIGHT ATRIUM: The atrium is normal in size. ATRIAL SEPTUM: Not well visualized. Color Doppler shows no shunt. MITRAL VALVE: Structurally normal valve. Doppler: There is trivial, less than 1+ regurgitation. AORTIC VALVE: Not well visualized. Trileaflet; moderately thickened leaflets. Doppler: There is mild stenosis. There is moderate, 2+ regurgitation. Dimensionless index: 0.46. The valve area by the velocity-time integral method is 1.5 cm^2. The valve area index by the velocity-time integral method is 0.7 cm^2/m^2. The mean systolic gradient is 8 mm Hg. The peak systolic gradient is 18 mm Hg. The peak systolic velocity is 2.1 m/sec. TRICUSPID VALVE: Not well visualized. Structurally normal valve. Doppler: There is trivial, less than 1+ regurgitation. PULMONIC VALVE: Not well visualized. Structurally normal valve. Doppler: There is no evidence for stenosis. There is trivial, less than 1+ regurgitation. AORTA: The aorta is normal. PULMONARY ARTERY: Main pulmonary artery: Normal. PERICARDIUM: There is no pericardial effusion. SYSTEMIC VEINS: Inferior vena cava: The vessel is mildly dilated. Measurements Left ventricle Value Reference LV ID, ED 4.8 cm 4.2 - 5.8 LV ID, ES 3.1 cm 2.5 - 4.0 LV ID/bsa, ED 2.4 cm/m^2 2.2 - 3.0 LV ID/bsa, ES 1.5 cm/m^2 1.3 - 2.1 LV PW thickness, ED 0.9 cm 0.6 - 1.0 LV PW/LV ID ratio, ED 0.19 --------- LV wall mass 149 g 96 - 200 LV wall mass/bsa 74 g/m^2 50 - 102 Stroke volume/bsa, 1-p A2C 52.6 ml/m^2 --------- LV end-diastolic volume, 1-p A4C 133 ml 69 - 185 LV end-systolic volume, 1-p A4C 38 ml 22 - 78 LV end-diastolic volume, 2-p 138 ml 62 - 150 LV end-systolic volume, 2-p 36 ml 21 - 61 LV E/e', lateral 5 --------- LV E/e', medial 7.6 --------- LV E/e', average 6 --------- Ventricular septum Value Reference IVS thickness, ED 0.9 cm 0.6 - 1.0 LVOT Value Reference LVOT ID, A-P 2.0 cm --------- LVOT mean velocity, S 0.6 m/sec --------- Ultrasound Report LVOT peak gradient, S 4 mm Hg --------- Stroke volume (SV), LVOT DP 69 ml --------- Stroke index (SV/bsa), LVOT DP 34 ml/m^2 --------- Aortic valve Value Reference Aortic valve peak velocity, S 2.1 m/sec --------- Aor (more content not included)... Normal [facility] Hemoglobin A1Con 05-16-2021 Glucose [Mass/Vol] 111 mg/dL Normal [facility] Comment on above: Performed By: #### T MICKIE, MG3, HA1C2, HEMOG, CMP3M, LIPD2 #### [email or web address] [address] [place] [address] HbA1c (Bld) [Mass fraction] 5.5 % Normal [facility] Comment on above: Result Comment: Norm al less than 5.7% Prediabetes 5.7% to 6.4% Diabetes 6.5% or higher --HgbA1C levels may not be accurate in patients who have renal disease, received recent blood transfusions, are anemic, or who have dyshemoglobinemia. Performed By: #### T ROPN, MG3, HA1C2, HEMOG, CMP3M, LIPD2 #### [facility] [address] [place] [address] Hemoglobin [id number] By: Joanna Wu on 05-16-2021 HbA1c (Bld) [Mass fraction] 5.5 % [facility] Work Phone: Comment on above: Normal less than 5.7 % Prediabetes 5.7% to 6.4% Diabetes 6.5% or higher --HgbA1C levels may not be accurate in patients who have renal disease, received recent blood transfusions, are anemic, or who have dyshemoglobinemia. Magnesium [Mass/Vol] 111 mg/dL [facility] Work Phone: Test Performed by [facility], [address] [place] [id number] [place] [address] Work Phone: [facility] Work Phone: Hemogramon 05-16-2021 Erythrocyte distribution width (RBC) [Ratio] 14.6 % High 11.5-14.5 [facility] Comment on above: Performed By: #### T ROPN, MG3, HA1C2, HEMOG, CMP3M, LIPD2 #### [address] Hematocrit (Bld) [Volume fraction] 34.8 % Low 40.0-52.0 [facility] Comment on above: Performed By: #### T ROPN, MG3, HA1C2, HEMOG, CMP3M, LIPD2 #### [address] Hemoglobin (Bld) [Mass/Vol] 12.0 g/dL Low 13.0-18.0 [facility] Comment on above: Performed By: #### T ROPN, MG3, HA1C2, HEMOG, CMP3M, LIPD2 #### [address] MCH (RBC) [Entitic mass] 27.0 pg Normal 26.0-34.0 [facility] Comment on above: Performed By: #### T ROPN, MG3, HA1C2, HEMOG, CMP3M, LIPD2 #### [address] MCHC 34.6 % Normal 32.0-36.0 [facility] Comment on above: Performed By: #### T ROPN, MG3, HA1C2, HEMOG, CMP3M, LIPD2 #### [address] MCV (RBC) [Entitic vol] 78.1 fL Low 80.0-98.0 [facility] Comment on above: Performed By: #### T ROPN, MG3, HA1C2, HEMOG, CMP3M, LIPD2 #### [address] [place] [address] [address] [place], [place] Platelet mean volume (Bld) [Entitic vol] 7.8 fL Normal 7.4-10.4 [facility] Comment on above: Performed By: #### T ROPN, MG3, HA1C2, HEMOG, CMP3M, LIPD2 #### [address] [address] [address] [place], [place] Platelets (Bld) [#/Vol] 147 10*3/uL Normal 140-440 [facility] Comment on above: Performed By: #### T ROPN, MG3, HA1C2, HEMOG, CMP3M, LIPD2 #### [address] RBC (Bld) [#/Vol] 4.46 10*6/uL Normal 4.40-5.90 [facility] Comment on above: Performed By: #### T ROPN, MG3, HA1C2, HEMOG, CMP3M, LIPD2 #### [address] [address] [address] [place], [place] WBC (Bld) [#/Vol] 5.9 10*3/uL Normal 3.6-10.7 [facility] Comment on above: Performed By: #### T ROPN, MG3, HA1C2, HEMOG, CMP3M, LIPD2 #### [address] [address] [address] [place], [place] Hemogram w/ Autodiffon 05-16 Abs Baso Cnt 0.1 10*3/uL Normal 0.0-0.2 [facility] Comment on above: Performed By: #### B MP3M, MG3, HEMDF #### [address] [place] [address] [address] [place], [place] Abs Neutrophile Cnt 4.4 10*3/uL Normal 1.8-7.0 [facility] Comment on above: Performed By: #### B MP3M, MG3, HEMDF #### [address] [place] [address] [address] [place], [place] Basophils/100 WBC (Bld) 1.5 % Normal 0.0-2.0 [facility] Comment on above: Performed By: #### B MP3M, MG3, HEMDF #### [address] [place] [address] [address] [place], [place] Eosinophils (Bld) [#/Vol] 0.3 10*3/uL Normal 0.0-0.5 [facility] Comment on above: Performed By: #### B MP3M, MG3, HEMDF #### [address] [place] [address] [address] [place], [place] Eosinophils/100 WBC (Bld) 4.9 % Normal 1.0-6.0 [facility] Comment on above: Performed By: #### B MP3M, MG3, HEMDF #### [address] [place] [address] [address] [place], [place] Erythrocyte distribution width (RBC) [Ratio] 14.8 % High 11.5-14.5 [facility] Comment on above: Performed By: #### B MP3M, MG3, HEMDF #### [address] [place] [address] [address] [place], [place] Granulocytes/100 WBC (Bld) 72.4 % Normal 40.0-80.0 [facility] Comment on above: Performed By: #### B MP3M, MG3, HEMDF #### [address] [place] [address] [address] [place], [place] Hematocrit (Bld) [Volume fraction] 36.5 % Low 40.0-52.0 [facility] Comment on above: Performed By: #### B MP3M, MG3, HEMDF #### [place] [address] [address] [place], [place] Hemoglobin (Bld) [Mass/Vol] 12.5 g/dL Low 13.0-18.0 [facility] Comment on above: Performed By: #### B MP3M, MG3, HEMDF #### [address] [place] [address] [address] [place], [place] Lymphocytes (Bld) [#/Vol] 0.8 10*3/uL Low 1.0-4.3 [facility] Comment on above: Performed By: #### B MP3M, MG3, HEMDF #### [address] [place] [address] [address] [place], [place] Lymphocytes/100 WBC (Bld) 13.8 % Low 20.0-40.0 [facility] Comment on above: Performed By: #### B MP3M, MG3, HEMDF #### [address] [place] [address] [address] [place], [place] MCH (RBC) [Entitic mass] 27.3 pg Normal 26.0-34.0 [facility] Comment on above: Performed By: #### B MP3M, MG3, HEMDF #### [address] [address] [place], [place] MCHC 34.2 % Normal 32.0-36.0 [facility] Comment on above: Performed By: #### B MP3M, MG3, HEMDF #### [address] [place] [address] [address] [place], [place] MCV (RBC) [Entitic vol] 80.0 fL Normal 80.0-98.0 [facility] Comment on above: Performed By: #### B MP3M, MG3, HEMDF #### [place] [address] [address] [place], [place] Monocytes (Bld) [#/Vol] 0.5 10*3/uL Normal 0.0-0.8 [facility] Comment on above: Performed By: #### B MP3M, MG3, HEMDF #### [address] Monocytes/100 WBC (Bld) 7.4 % Normal 2.0-10.0 [facility] Comment on above: Performed By: #### B MP3M, MG3, HEMDF #### [place] [address] [address] [place], [place] Platelet mean volume (Bld) [Entitic vol] 7.6 fL Normal 7.4-10.4 [facility] Comment on above: Performed By: #### B MP3M, MG3, HEMDF #### [address] [place] [address] [address] [place], [place] Platelets (Bld) [#/Vol] 136 10*3/uL Low 140-440 [facility] Comment on above: Performed By: #### B MP3M, MG3, HEMDF #### [address] [place] [address] [address] [place], [place] RBC (Bld) [#/Vol] 4.57 10*6/uL Normal 4.40-5.90 [facility] Comment on above: Performed By: #### B MP3M, MG3, HEMDF #### [address] [address] [place], [place] WBC (Bld) [#/Vol] 6.1 10*3/uL Normal 3.6-10.7 [facility] Comment on above: Performed By: #### B MP3M, MG3, HEMDF #### [address] [place] [address] [address] [place], [place] Lipid Panelon 05-16-2021 Chol/HDL 5 Normal [facility] Comment on above: Result Comment: Ref Range: < 3 Low Risk for CHD 3-6 Mod Risk for CHD > 6 High Risk for CHD Performed By: #### T ROPN, MG3, HA1C2, HEMOG, CMP3M, LIPD2 #### [address] [place] [address] [address] [place], [place] Cholesterol in HDL [Mass/Vol] 26 mg/dL Low 40-60 [facility] Comment on above: Performed By: #### T ROPN, MG3, HA1C2, HEMOG, CMP3M, LIPD2 #### [address] [place] [address] [address] [place], [place] Low Density Lipoprotein 82 mg/dL Normal <100 [facility] Comment on above: Performed By: #### T ROPN, MG3, HA1C2, HEMOG, CMP3M, LIPD2 #### [address] [place] [address] Triglyceride [Mass/Vol] 107 mg/dL Normal <150 [facility] Comment on above: Performed By: #### T ROPN, MG3, HA1C2, HEMOG, CMP3M, LIPD2 #### [facility] [address] [place] [address] Cholesterol [Mass/Vol] 129 mg/dL Normal < 200 [facility] Comment on above: Performed By: #### T ROPN, MG3, HA1C2, HEMOG, CMP3M, LIPD2 #### [facility] [address] [place] [address] Lipid panel - fastingOrdered By: Celsa Wu on 05-16-2021 Cholesterol [Mass/Vol] 129 mg/dL <200 [facility] Work Phone: Cholesterol in HDL [Mass/Vol] 26 mg/dL Low 40 - 60 mg/dL [employer] Work Phone: Cholesterol in LDL [Mass/Vol] 82 mg/dL <100 [employer] Work Phone: Cholesterol.total/Chol esterol in HDL [Mass ratio] 5 {ratio} [employer] Work Phone: Comment on above: Ref Range: < 3 Low Risk for CHD 3-6 Mod Risk for CHD > 6 High Risk for CHD Triglyceride [Mass/Vol] 107 mg/dL <150 [facility] [employer] Phone: MRI Brain w/ + w/o Contrasto n 05-16-2021 MRI Brain w/ + w/o Contrast Patient Name: KENN ARSHAD Sr Magnetic Resonance Imaging ACCESSION EXAM DATE/TIME PROCEDURE ORDERING PROVIDER [id number] 05/16/2021 10:38 EDT MRI Brain w/ + w/o ARASH WU, CELSA [place] CPT code 45922 Reason For Exam (MRI Brain w/ + w/o Contrast) encephalopathy, rule out stroke/mets Report Examination: MRI brain with and without gadolinium Indication: encephalopathy, rule out stroke/mets Technique: Multi-planar multi-sequence MRI images of the brain were obtained, including gradient echo, T2 and flair axial images, T1 sagittal and coronal images, in addition to diffusion/ADC map. Post gadolinium T1 axial and coronal images were also acquired following intravenous administration of 8 mL Gadavist. Comparison: Multiple prior head CT examination and prior MRI in addition to prior CT chest Findings: The ventricles, sulci and cisterns are prominent, consistent with mild to moderate diffuse parenchymal volume loss.. Mild confluent increased T2/FLAIR signal abnormality is present in the periventricular white matter. Similar findings were present on the prior MRI from 03/08/2021. There is, however new patchy signal abnormality in the centrum semiovale and within the periventricular/subcortic al white matter in the posterior temporal and occipital distribution There are no extra-axial fluid collections. There is no midline shift. The posterior fossa and midline structures are grossly intact and unremarkable. Mild to moderate mucoperiosteal thickening of the right maxillary sinus is noted. There is mild mucoperiosteal thickening of the left as well. Mild inflammatory changes of the mastoid air cells are present, greater on the left. There is fluid/secretions within the nasopharynx. The bilateral orbits are grossly unremarkable. There is no abnormal diffusion restriction to suggest acute ischemia/infarct. No abnormal enhancement is demonstrated. Impression: Magnetic Resonance Imaging Report Mild signal changes in the periventricular white matter are likely secondary to chronic small vessel ischemia. New additional foci of signal abnormality in the centrum semiovale and posterior subcortical white matter may be secondary to posterior reversible encephalopathy. Follow-up is recommended. No evidence to suggest intracranial metastatic disease. No abnormal leptomeningeal or pachymeningeal enhancement. No acute ischemia/infarct. Inflammatory changes of the paranasal sinuses Report Dictated on Final Dictated: 05/16/2021 11:40 am Dictating Physician: MD PANIAGUA KRIKOR Signed Date and Time: 05/16/2021 11:50 am Signed by: MD PANIAGUA KRIKOR Transcribed Date and Time: 05/16/2021 11:40 Normal [facility] MRI brain with and without c ontrast (REVIEW IMAGING RECORDS IN THE LAST 2 YRS to determine INDICATION prior to oder )Ordered By: Celsa Wu on 05-16-2021 Patient [id number] Res[facility] Imaging ACCESSION EXAM DATE/TIME PROCEDURE ORDERING PROVIDER [id number] 05/16/2021 10:38 EDT MRI Brain w/ + w/o ARASH WU, CELSA Hastings Contrast CPT code 43727 Reason For Exam (MRI Brain w/ + w/o Contrast) encephalopathy, rule out stroke/mets Report Examination: MRI brain with and without gadolinium Indication: encephalopathy, rule out stroke/mets Technique: Multi-planar multi-sequence MRI images of the brain were obtained, including gradient echo, T2 and flair axial images, T1 sagittal and coronal images, in addition to diffusion/ADC map. Post gadolinium T1 axial and coronal images were also acquired following intravenous administration of 8 mL Gadavist. Comparison: Multiple prior head CT examination and prior MRI in addition to prior CT chest Findings: The ventricles, sulci and cisterns are prominent, consistent with mild to moderate diffuse parenchymal volume loss.. Mild confluent increased T2/FLAIR signal abnormality is present in the periventricular white matter. Similar findings were present on the prior MRI from 03/08/2021. There is, however new patchy signal abnormality in the centrum semiovale and within the periventricular/subcortic al white matter in the posterior temporal and occipital distribution There are no extra-axial fluid collections. There is no midline shift. The posterior fossa and midline structures are grossly intact and unremarkable. Mild to moderate mucoperiosteal thickening of the right maxillary sinus is noted. There is mild mucoperiosteal thickening of the left as well. Mild inflammatory changes of the mastoid air cells are present, greater on the left. There is fluid/secretions within the nasopharynx. The bilateral orbits are grossly unremarkable. There is no abnormal diffusion restriction to suggest acute ischemia/infarct. No abnormal enhancement is demonstrated. Impression: Magnetic Resonance Imaging Report Mild signal changes in the periventricular white matter are likely secondary to chronic small vessel ischemia. New additional foci of signal abnormality in the centrum semiovale and posterior subcortical white matter may be secondary to posterior reversible encephalopathy. Follow-up is recommended. No evidence to suggest intracranial metastatic disease. No abnormal leptomeningeal or pachymeningeal enhancement. No acute ischemia/infarct. Inflammatory changes of the paranasal sinuses Report Dictated on --- Final --- Dictated: 05/16/2021 11:40 am Dictating Physician: MD PANIAGUA KRIKOR Signed Date and Time: 05/16/2021 11:50 am Signed by: MD PANIAGUA KRIKOR Transcribed Date and Time: 05/16/2021 11:40 [facility] Work Phone: Ron[facility], [facility] Incoming Radiology Results From [facility] - 05/16/2021 11:52 AM EDT [facility]: [id number] Imaging ACCESSION EXAM DATE/TIME PROCEDURE ORDERING PROVIDER [id number] 05/16/2021 10:38 EDT MRI Brain w/ + w/o ARASH WU, CELSA Hastings Contrast CPT code 74557 Reason For Exam (MRI Brain w/ + w/o Contrast) encephalopathy, rule out stroke/mets Report Examination: MRI brain with and without gadolinium Indication: encephalopathy, rule out stroke/mets Technique: Multi-planar multi-sequence MRI images of the brain were obtained, including gradient echo, T2 and flair axial images, T1 sagittal and coronal images, in addition to diffusion/ADC map. Post gadolinium T1 axial and coronal images were also acquired following intravenous administration of 8 mL Gadavist. Comparison: Multiple prior head CT examination and prior MRI in addition to prior CT chest Findings: The ventricles, sulci and cisterns are prominent, consistent with mild to moderate diffuse parenchymal volume loss.. Mild confluent increased T2/FLAIR signal abnormality is present in the periventricular white matter. Similar findings were present on the prior MRI from 03/08/2021. There is, however new patchy signal abnormality in the centrum semiovale and within the periventricular/subcortic al white matter in the posterior temporal and occipital distribution There are no extra-axial fluid collections. There is no midline shift. The posterior fossa and midline structures are grossly intact and unremarkable. Mild to moderate mucoperiosteal thickening of the right maxillary sinus is noted. There is mild mucoperiosteal thickening of the left as well. Mild inflammatory changes of the mastoid air cells are present, greater on the left. There is fluid/secretions within the nasopharynx. The bilateral orbits are grossly unremarkable. There is no abnormal diffusion restriction to suggest acute ischemia/infarct. No abnormal enhancement is demonstrated. Impression: Magnetic Resonance Imaging Report Mild signal changes in the periventricular white matter are likely secondary to chronic small vessel ischemia. New additional foci of signal abnormality in the centrum semiovale and posterior subcortical white matter may be secondary to posterior reversible encephalopathy. Follow-up is recommended. No evidence to suggest intracranial metastatic disease. No abnormal leptomeningeal or pachymeningeal enhancement. No acute ischemia/infarct. Inflammatory changes of the paranasal sinuses Report Dictated on --- Final --- Dictated: 05/16/2021 11:40 am Dictating Physician: MD PANIAGUA KRIKOR Signed Date and Time: 05/16/2021 11:50 am Signed by: MD PANIAGUA KRIKOR Transcribed Date and Time: 05/16/2021 11:40 [facility] Work Phone: [facility] Work Phone: Magnesiumon 05-16-2021 Magnesium [Mass/Vol] 2.0 mg/dL Normal 1.6-2.3 [facility] Comment on above: Performed By: #### H EMOG, TROPN #### [address] [address] Magnesium [Mass/Vol] 2.0 mg/dL Normal 1.6-2.3 [facility] Comment on above: Performed By: #### T ROPN, MG3, HA1C2, HEMOG, CMP3M, LIPD2 #### [address] [address] MagnesiumOrdered By: Carine Morin on 05-16-2021 Magnesium [Mass/Vol] 2.0 mg/dL 1.6 - 2 .3 mg/dL [facility] Work Phone: Test Performed by [facility], [address] [place] [address] [facility] Work Phone: [facility] Work Phone: MagnesiumOrdered By: Celsa Wu on 05-16-2021 Magnesium [Mass/Vol] 2.0 mg/dL 1.6 - 2 .3 mg/dL [facility] Work Phone: Test Performed by [employer], [address] [place] [address] [facility] Work Phone: [phone] [facility] Work Phone: No Panel InformationOrdered By: Celsa Wu on 05-16-2021 Interpretation and review of laboratory results Abnormal [facility] Work Phone: Test Performed by [employer], [address] [place] [address] [facility] Work Phone: [phone] [facility] Work Phone: [phone] TroponinOrdered By: Celsa Wu on 05-16-2021 Troponin I.cardiac [Mass/Vol] 0.034 ng/mL 0.000 - 0.034 ng/mL [facility] Work Phone: Comment on above: . Test Performed by [employer], [address] [place] [address] [facility] Work Phone: [phone] [facility] Work Phone: [phone] Troponin Ion 05-16-2021 Troponin I.cardiac [Mass/Vol] 0.034 ng/mL Normal 0.000-0.034 [facility] Comment on above: Result Comment: . Performed By: #### T ROPN, MG3, HA1C2, HEMOG, CMP3M, LIPD2 #### [facility] [address] [place] [id number] XR ABDOMEN (KUB) (SINGLE AP VIEW)Ordered By: Carine Morin on 05-16-2021 Patient Name: KENN VAUGHN Sr Diagnostic Radiology ACCESSION EXAM DATE/TIME PROCEDURE ORDERING PROVIDER [id number] 05/16/2021 09:51 EDT CR Abdomen AP MD. SHANEKA, CARINE Hastings CPT code 66309 Reason For Exam (CR Abdomen AP) MRI clearance Report ABDOMEN -1 VIEW: CLINICAL INDICATION: MRI clearance TECHNIQUE: 1 view of abdomen and pelvis COMPARISON: None. FINDINGS: The bowel gas pattern is nonspecific, nonobstructed. No abnormal soft tissue calcifications are identified. Multilevel thoracolumbar degenerative change. IMPRESSION: Unremarkable abdominal radiographs. No foreign bodies or other objects to preclude MRI on this exam. Report Dictated on --- Final --- Dictated: 05/16/2021 7:15 pm Dictating Physician: MD DONNELLY JASON Signed Date and Time: 05/16/2021 7:16 pm Signed by: MD DONNELLY JASON Transcribed Date and Time: 05/16/2021 7:15 [facility] Work Phone: [facility], [facility] Incoming Radiology Results From [facility] - 05/16/2021 7:17 PM EDT Patient Name: KENN ARSHAD Sr Diagnostic Radiology ACCESSION EXAM DATE/TIME PROCEDURE ORDERING PROVIDER [id number] 05/16/2021 09:51 EDT CR Abdomen AP MD. SHANEKA, CARINE Hastings CPT code 11185 Reason For Exam (CR Abdomen AP) MRI clearance Report ABDOMEN -1 VIEW: CLINICAL INDICATION: MRI clearance TECHNIQUE: 1 view of abdomen and pelvis COMPARISON: None. FINDINGS: The bowel gas pattern is nonspecific, nonobstructed. No abnormal soft tissue calcifications are identified. Multilevel thoracolumbar degenerative change. IMPRESSION: Unremarkable abdominal radiographs. No foreign bodies or other objects to preclude MRI on this exam. Report Dictated on --- Final --- Dictated: 05/16/2021 7:15 pm Dictating Physician: MD DONNELLY JASON Signed Date and Time: 05/16/2021 7:16 pm Signed by: MD DONNELLY JASON Transcribed Date and Time: 05/16/2021 7:15 [facility] Work Phone: [facility] Work Phone: Add On Lab TestOrdered By: Arnol Morin on 05-15-2021 Add On Accepted [facility] Work Phone: Comment on above: Specimen available & acceptable for analysis. Test Performed by [facility], [address] [place] [address] [facility] Work Phone: [facility] Work Phone: Add on test from HISon 05-15 Add on test from [facility] Accepted Normal [facility] Comment on above: Result Comment: Spec imen available & acceptable for analysis. Performed By: #### T ROPN, MG3, HA1C2, HEMOG, CMP3M, LIPD2 #### [facility] [address] [place] [address] BMP, Whole Blood (POCT)on Anion gap [Moles/Vol] 10.00 mmol/L Normal 3.00-13.00 [facility] Comment on above: Performed By: #### T ROPN, MG3, HA1C2, HEMOG, CMP3M, LIPD2 #### [address] [address] [place] [address] Calcium, Ionized WB 4.6 mg/dL Normal 4.3-5.2 [facility] Comment on above: Result Comment: Perf ormed by [employer] CLIA ID:[id number] [place], [place] Performed By: #### T ROPN, MG3, HA1C2, HEMOG, CMP3M, LIPD2 #### [address] [address] [place] [address] Chloride [Moles/Vol] 106 mmol/L Normal 98-114 [facility] Comment on above: Performed By: #### T ROPN, MG3, HA1C2, HEMOG, CMP3M, LIPD2 #### [facility] [address] [place] [address] CO2 [Moles/Vol] 22 mmol/L Normal 21-29 [facility] Comment on above: Performed By: #### T ROPN, MG3, HA1C2, HEMOG, CMP3M, LIPD2 #### [facility] [address] [place] [address] Creatinine [Mass/Vol] 0.90 mg/dL Normal 0.60-1.30 [facility] Comment on above: Performed By: #### T ROPN, MG3, HA1C2, HEMOG, CMP3M, LIPD2 #### [facility] [address] [place] [address] GFR/1.73 sq M.predicted among blacks MDRD (S/P/Bld) [Vol rate/Area] mL/min/{1.73_m2} Normal >60 [facility] Comment on above: Performed By: #### T ROPN, MG3, HA1C2, HEMOG, CMP3M, LIPD2 #### [facility] [address] [place], [place] GFR/1.73 sq M.predicted among non-blacks MDRD (S/P/Bld) [Vol rate/Area] 87.7 mL/min/{1.73_m2} Normal >60 [facility] Comment on above: Result Comment: KDIG O guidelines provide the following GFR categories: Stage GFR(ml/min/1.73 m2) Terms G1 >=90 Normal or high G2 60-89 Mildly decreased* G3a 45-59 Mildly to moderately decreased G3b 30-44 Moderately to severely decreased G4 15-29 Severely decreased G5 <15 Kidney failure *Relative to young adult level. In the absence of evidence of kidney damage, neither GFR category G1 nor G2 fulfill the criteria for CKD. The CKD-EPI equation is validated in individuals 18 years of age and older. Currently the best equation for estimating glomerular filtration rate (GFR) from serum creatinine in children is the Bedside Almodovar equation. It is less accurate in patients with extremes of muscle mass, restriction of dietary protein, ingestion of creatine, extra-renal metabolism of creatinine, or treatment with medications that affect renal tubular creatinine secretion. Performed By: #### T ROPN, MG3, HA1C2, HEMOG, CMP3M, LIPD2 #### [facility] [address] [place], [place] Glucose [Mass/Vol] 111 mg/dL High 70-100 [facility] Comment on above: Performed By: #### T ROPN, MG3, HA1C2, HEMOG, CMP3M, LIPD2 #### [facility] [address] [place], [place] Potassium [Moles/Vol] 5.4 mmol/L High 3.4-5.1 [facility] Comment on above: Performed By: #### T ROPN, MG3, HA1C2, HEMOG, CMP3M, LIPD2 #### [address] [address] [place] [address] Sodium [Moles/Vol] 138 mmol/L Normal 133-145 [facility] Comment on above: Performed By: #### T ROPN, MG3, HA1C2, HEMOG, CMP3M, LIPD2 #### [address] [address] [place] [address] Urea nitrogen [Mass/Vol] 21 mg/dL Normal 4-22 [facility] Comment on above: Performed By: #### T ROPN, MG3, HA1C2, HEMOG, CMP3M, LIPD2 #### [address] [address] [place] [address] CBCOrdered By: Tono Birch on 05-15-2021 Hematocrit (Bld) [Volume fraction] 39.1 % Low 40.0 - 52.0 % [facility] Work Phone: Hemoglobin.gastrointes tinal spec 1 Ql (Stl) 13.2 g/dL 13.0 - 18.0 g/dL [facility] Work Phone: Interpretation and review of laboratory results Abnormal [facility] Work Phone: [phone] MCH (RBC) [Entitic mass] 26.5 pg 26.0 - 34.0 pg [facility] Work Phone: [phone] MCHC (RBC) [Mass/Vol] 33.8 % 32.0 - 36.0 % [facility] Work Phone: [phone] MCV (RBC) [Entitic vol] 78.6 fL Low 80.0 - 98.0 fL [facility] Work Phone: Platelet distribution width (Bld) [Ratio] 14.6 % High 11.5 - 14.5 % [facility] Work Phone: Platelet mean volume (Bld) [Entitic vol] 7.6 fL 7.4 - 10.4 fL [facility] Work Phone: Platelets (Bld) [#/Vol] 150 10*3/uL 140 - 440 10*3/uL [facility] Work Phone: RBC (Bld) [#/Vol] 4.97 10*6/uL 4.40 - 5.9 0 10*6/uL [facility] Work Phone: WBC (Bld) [#/Vol] 8.3 10*3/uL 3.6 - 10.7 10*3/uL [facility] Work Phone: Test Performed by [facility], [address] [place] [address] [facility] Work Phone: [facility] Work Phone: CBCOrdered By: Unknown Resul t on 05-15-2021 Hematocrit (Bld) [Volume fraction] 39.5 % Low 40.0 - 52.0 % [facility] Work Phone: Hemoglobin.gastrointes tinal spec 1 Ql (Stl) 13.7 g/dL 13.0 - 18.0 g/dL [facility] Work Phone: Interpretation and review of laboratory results Abnormal [facility] Work Phone: MCH (RBC) [Entitic mass] 27.2 pg 26.0 - 34.0 pg [facility] Work Phone: MCHC (RBC) [Mass/Vol] 34.8 % 32.0 - 36.0 % [facility] Work Phone: MCV (RBC) [Entitic vol] 78.3 fL Low 80.0 - 98.0 fL [facility] Work Phone: Platelet distribution width (Bld) [Ratio] 14.7 % High 11.5 - 14.5 % [facility] Work Phone: Platelet mean volume (Bld) [Entitic vol] 8.0 fL 7.4 - 10.4 fL [facility] Work Phone: Platelets (Bld) [#/Vol] 144 10*3/uL 140 - 440 10*3/uL [facility] Work Phone: RBC (Bld) [#/Vol] 5.04 10*6/uL 4.40 - 5.9 0 10*6/uL [facility] Work Phone: [phone] WBC (Bld) [#/Vol] 6.2 10*3/uL 3.6 - 10.7 10*3/uL [facility] Work Phone: CR Chest Portableon 05-15-20 21 CR Chest Portable Patient [facility]: [id number] Radiology ACCESSION EXAM DATE/TIME PROCEDURE ORDERING PROVIDER [id number] 05/15/2021 10:42 EDT CR Chest Portable MD BIRCH DOUGALAS R. CPT code 35805 Reason For Exam (CR Chest Portable) stroke Report Portable chest /05/29: Clinical Information: Stroke. Findings: A single AP portable view of the chest was obtained at 1020 hours. Comparison was made to the prior study 03/15/2021. The Cbhvfa-e-Iwvo type catheter is now present right. The trachea is midline. The heart is not enlarged. There is minimal atelectasis in the base. There may be a small right pleural effusion. There is an element of underlying obstructive lung disease. There may be a mild degree of vascular congestion. Report Dictated on Final Dictated: 05/15/2021 10:41 am Dictating Physician: MD NORRIS RISA Signed Date and Time: 05/15/2021 10:42 am Signed by: MD NORRIS RISA Transcribed Date and Time: 05/15/2021 10:41 Normal [facility] CT Brain PerfusionOrdered By : Tono Birch on 05-15-2021 Patient [id number] Computed Tomography ACCESSION EXAM DATE/TIME PROCEDURE ORDERING PROVIDER [id number] 05/15/2021 09:[address] Cerebral Perfusion MD BIRCH DOUGALAS R. CPT code 0042T Reason For Exam (CT Cerebral Perfusion) stroke Report Reason for examination: Acute stroke, brain attack patient, slurred speech, facial droop, left hemiparesis. CT angiograms of the intracranial vessels CT whole brain perfusion study CT angiograms of the extracranial vessels Dynamic 4D CT angiograms of the intracranial vessels and CT Perfusion study of the whole brain were performed following intravenous administration of 50 mL of Isovue 370. The data set was post processed 4D CT angiograms, 3-D shaded surface display CT angiograms, and color coded CT perfusion maps of cerebral blood volume, mean transit time, and cerebral blood flow . Following this, CT angiogram of the extracranial carotid and vertebral vessels was performed following bolus injection of 50 mL other Isovue-370. The CT angiographic studies of the extracranial vessels were post processed on a 3-D workstation with multiple shaded surface display and vessel probe CT angiographic analyses. Prior unenhanced scans of the head demonstrate no hemorrhage. There is no definite evidence of acute infarction. There is paranasal sinusitis multiple opacified ethmoid air cells and mucoperiosteal thickening. CT angio of the intracranial vessels: 4D dynamic CT angiography of the intracranial vessels was performed. There is normal flow in the right and left internal carotid arteries, the distal right and left vertebral arteries , and basilar artery. Some atherosclerotic calcification within the cavernous and right supraclinoid ICA segments. There is no significant stenosis or occlusion. There is filling of the right and left anterior, middle, and posterior cerebral circulations, with no evidence of acute occlusion, cut-off, or critical stenosis. There is no evidence of aneurysm or AVM. The cerebral venous structures and major dural sinuses appear normal. CT perfusion studies: CT perfusion studies demonstrate no global or regional perfusion abnormalities on the TTP, MTT, CBV, or CBF maps. CT angio of the extracranial vessels: There are patent origins of the right and left common carotid Computed Tomography Report arteries, and the right and left vertebral arteries. There are no stenoses. The right and left cervical vertebral arteries are patent throughout their lengths to the axis loop. There is no dissection or stenosis. The right carotid bifurcation is widely patent, with mild atherosclerotic plaque but no significant stenosis, less than 20 percent by NASCET criteria. There is no dissection. The external and internal carotid branches are patent. The left carotid bifurcation is widely patent, with mild atherosclerotic plaque but no significant stenosis, less than 20 percent by NASCET criteria. There is no dissection. The external and internal carotid branches are patent. IMPRESSION: No evidence of acute infarction or hemorrhage. No intracranial arterial occlusion, cut-off, or stenosis. No global or regional perfusion deficits. No evidence of carotid or vertebral occlusion, significant stenosis, or dissection. Report Dictated on --- Final --- Dictated: 05/15/2021 9:57 am Dictating Physician: MD JONES ANTHONY J Signed Date and Time: 05/15/2021 10:17 am Signed by: MD JONES ANTHONY J Transcribed Date and Time: 05/15/2021 9:57 [facility] Work Phone: [facility], [facility] Incoming Radiology Results From [facility] - 05/15/2021 10:18 AM EDT Patient [facility]: [facility]AD [id number] Computed Tomography ACCESSION EXAM DATE/TIME PROCEDURE ORDERING PROVIDER [id number] 05/15/2021 09:[address] Cerebral Perfusion MD RAISSA, RODRI Wilcox CPT code 0042T Reason For Exam (CT Cerebral Perfusion) stroke Report Reason for examination: Acute stroke, brain attack patient, slurred speech, facial droop, left hemiparesis. CT angiograms of the intracranial vessels CT whole brain perfusion study CT angiograms of the extracranial vessels Dynamic 4D CT angiograms of the intracranial vessels and CT Perfusion study of the whole brain were performed following intravenous administration of 50 mL of Isovue 370. The data set was post processed 4D CT angiograms, 3-D shaded surface display CT angiograms, and color coded CT perfusion maps of cerebral blood volume, mean transit time, and cerebral blood flow . Following this, CT angiogram of the extracranial carotid and vertebral vessels was performed following bolus injection of 50 mL other Isovue-370. The CT angiographic studies of the extracranial vessels were post processed on a 3-D workstation with multiple shaded surface display and vessel probe CT angiographic analyses. Prior unenhanced scans of the head demonstrate no hemorrhage. There is no definite evidence of acute infarction. There is paranasal sinusitis multiple opacified ethmoid air cells and mucoperiosteal thickening. CT angio of the intracranial vessels: 4D dynamic CT angiography of the intracranial vessels was performed. There is normal flow in the right and left internal carotid arteries, the distal right and left vertebral arteries , and basilar artery. Some atherosclerotic calcification within the cavernous and right supraclinoid ICA segments. There is no significant stenosis or occlusion. There is filling of the right and left anterior, middle, and posterior cerebral circulations, with no evidence of acute occlusion, cut-off, or critical stenosis. There is no evidence of aneurysm or AVM. The cerebral venous structures and major dural sinuses appear normal. CT perfusion studies: CT perfusion studies demonstrate no global or regional perfusion abnormalities on the TTP, MTT, CBV, or CBF maps. CT angio of the extracranial vessels: There are patent origins of the right and left common carotid Computed Tomography Report arteries, and the right and left vertebral arteries. There are no stenoses. The right and left cervical vertebral arteries are patent throughout their lengths to the axis loop. There is no dissection or stenosis. The right carotid bifurcation is widely patent, with mild atherosclerotic plaque but no significant stenosis, less than 20 percent by NASCET criteria. There is no dissection. The external and internal carotid branches are patent. The left carotid bifurcation is widely patent, with mild atherosclerotic plaque but no significant stenosis, less than 20 percent by NASCET criteria. There is no dissection. The external and internal carotid branches are patent. IMPRESSION: No evidence of acute infarction or hemorrhage. No intracranial arterial occlusion, cut-off, or stenosis. No global or regional perfusion deficits. No evidence of carotid or vertebral occlusion, significant stenosis, or dissection. Report Dictated on --- Final --- Dictated: 05/15/2021 9:57 am Dictating Physician: MD JONES ANTHONY J Signed Date and Time: 05/15/2021 10:17 am Signed by: MD JONES ANTHONY J Transcribed Date and Time: 05/15/2021 9:57 [facility] Work Phone: [facility] Work Phone: CT Cerebral Perfusionon CT Cerebral Perfusion Patient Name: KENN STEWART Sr [facility]#: [id number] Computed Tomography ACCESSION EXAM DATE/TIME PROCEDURE ORDERING PROVIDER [id number] 05/15/2021 09:[address] Cerebral Perfusion MD RAISSA, RODRI Wilcox CPT code 0042T Reason For Exam (CT Cerebral Perfusion) stroke Report Reason for examination: Acute stroke, brain attack patient, slurred speech, facial droop, left hemiparesis. CT angiograms of the intracranial vessels CT whole brain perfusion study CT angiograms of the extracranial vessels Dynamic 4D CT angiograms of the intracranial vessels and CT Perfusion study of the whole brain were performed following intravenous administration of 50 mL of Isovue 370. The data set was post processed 4D CT angiograms, 3-D shaded surface display CT angiograms, and color coded CT perfusion maps of cerebral blood volume, mean transit time, and cerebral blood flow . Following this, CT angiogram of the extracranial carotid and vertebral vessels was performed following bolus injection of 50 mL other Isovue-370. The CT angiographic studies of the extracranial vessels were post processed on a 3-D workstation with multiple shaded surface display and vessel probe CT angiographic analyses. Prior unenhanced scans of the head demonstrate no hemorrhage. There is no definite evidence of acute infarction. There is paranasal sinusitis multiple opacified ethmoid air cells and mucoperiosteal thickening. CT angio of the intracranial vessels: 4D dynamic CT angiography of the intracranial vessels was performed. There is normal flow in the right and left internal carotid arteries, the distal right and left vertebral arteries , and basilar artery. Some atherosclerotic calcification within the cavernous and right supraclinoid ICA segments. There is no significant stenosis or occlusion. There is filling of the right and left anterior, middle, and posterior cerebral circulations, with no evidence of acute occlusion, cut-off, or critical stenosis. There is no evidence of aneurysm or AVM. The cerebral venous structures and major dural sinuses appear normal. CT perfusion studies: CT perfusion studies demonstrate no global or regional perfusion abnormalities on the TTP, MTT, CBV, or CBF maps. CT angio of the extracranial vessels: There are patent origins of the right and left common carotid Computed Tomography Report arteries, and the right and left vertebral arteries. There are no stenoses. The right and left cervical vertebral arteries are patent throughout their lengths to the axis loop. There is no dissection or stenosis. The right carotid bifurcation is widely patent, with mild atherosclerotic plaque but no significant stenosis, less than 20 percent by NASCET criteria. There is no dissection. The external and internal carotid branches are patent. The left carotid bifurcation is widely patent, with mild atherosclerotic plaque but no significant stenosis, less than 20 percent by NASCET criteria. There is no dissection. The external and internal carotid branches are patent. IMPRESSION: No evidence of acute infarction or hemorrhage. No intracranial arterial occlusion, cut-off, or stenosis. No global or regional perfusion deficits. No evidence of carotid or vertebral occlusion, significant stenosis, or dissection. Report Dictated on Final Dictated: 05/15/2021 9:57 am Dictating Physician: MD JONES ANTHONY J Signed Date and Time: 05/15/2021 10:17 am Signed by: MD JONES ANTHONY J Transcribed Date and Time: 05/15/2021 9:57 Normal [facility] CT HEAD WO CONTRASTOrdered B y: Mauri Hernandez on 05-15-2021 Patient Name: KENN VAUGHN Sr Computed Tomography ACCESSION EXAM DATE/TIME PROCEDURE ORDERING PROVIDER [id number] 05/15/2021 14:[address] Head or Brain w/o [id number] -MAURI HERNANDEZ Contrast CPT code 36121 Reason For Exam (CT Head or Brain w/o Contrast) seizure Report CT scan head: 05/15/2021. CLINICAL INFORMATION: History of seizure, prior stroke team. FINDINGS: Scans of the head were performed at 3 mm slice thickness. Comparison was made to the earlier study same date. There is residual contrast from the earlier study. The ventricular system and cortical sulci are within normal limits. There is no evidence of hemorrhage or edema. No areas of mass effect or infarct are seen. There is extensive mucosal thickening in the ethmoid air cells on the left as well as the sphenoid sinus. IMPRESSION: Residual contrast from prior study. No significant interval change. Incidental sinusitis. Report Dictated on --- Final --- Dictated: 05/15/2021 2:51 pm Dictating Physician: MD NORRIS RISA Signed Date and Time: 05/15/2021 2:53 pm Signed by: MD NORRIS RISA Transcribed Date and Time: 05/15/2021 2:51 [facility] Work Phone: [facility], [facility] Incoming Radiology Results From [facility] - 05/15/2021 2:54 PM EDT [facility]: [id number] Comput[facility] Tomography ACCESSION EXAM DATE/TIME PROCEDURE ORDERING PROVIDER [id number] 05/15/2021 14:[address] Head or Brain w/o [id number] -MAURI HERNANDEZ Contrast CPT code 62692 Reason For Exam (CT Head or Brain w/o Contrast) seizure Report CT scan head: 05/15/2021. CLINICAL INFORMATION: History of seizure, prior stroke team. FINDINGS: Scans of the head were performed at 3 mm slice thickness. Comparison was made to the earlier study same date. There is residual contrast from the earlier study. The ventricular system and cortical sulci are within normal limits. There is no evidence of hemorrhage or edema. No areas of mass effect or infarct are seen. There is extensive mucosal thickening in the ethmoid air cells on the left as well as the sphenoid sinus. IMPRESSION: Residual contrast from prior study. No significant interval change. Incidental sinusitis. Report Dictated on --- Final --- Dictated: 05/15/2021 2:51 pm Dictating Physician: MD NORRIS RISA Signed Date and Time: 05/15/2021 2:53 pm Signed by: MD NORRIS RISA Transcribed Date and Time: 05/15/2021 2:51 [facility] Work Phone: [facility] Work Phone: CT HEAD WO CONTRASTOrdered B y: Tono Birch on 05-15-2021 Patient [id number] Computed Tomography ACCESSION EXAM DATE/TIME PROCEDURE ORDERING PROVIDER [id number] 05/15/2021 09:[address] Head or Brain w/o MD RAISSA, RODRI Wilcox Contrast CPT code 23334 Reason For Exam (CT Head or Brain w/o Contrast) stroke Addendum Examination: CT Head Clinical Information: stroke team, right-sided weakness Comparison: None Findings: Serial axial [address] images were obtained through the skull without intravenous contrast. Coronal, sagittal, and axial images were reconstructed. The ventricular system and cortical sulci are within normal limits without significant volume loss. Cornejo white differentiation is well preserved. Trace periventricular white matter hypodensity likely minimal chronic small vessel ischemic disease in a patient of this age. Atherosclerotic calcification carotid siphons. There is no evidence of gross mass, hemorrhage or edema. No areas of mass-effect or infarct are seen. Ethmoid, sphenoid and right maxillary sinus demonstrates mucoperiosteal thickening. Aspect score 10 of 10 Impression: 1. Minimal white matter changes likely trace chronic small vessel ischemic disease in a patient of this age. 2. Otherwise unremarkable noncontrast CT scan of the head. No evidence of acute intracranial process. Stroke team findings called to Dr. Gallegos at 08 08. Report Dictated on ---Final Addendum--- Signed Date and Time: 05/15/2021 9:35 am Signed by: MD JONES ANTHONY J Computed Tomography Report Examination: CT Head Clinical Information: stroke team, right-sided weakness Comparison: None Findings: Serial axial [address] images were obtained through the skull without intravenous contrast. Coronal, sagittal, and axial images were reconstructed. The ventricular system and cortical sulci are within normal limits without significant volume loss. Cornejo white differentiation is well preserved. Trace periventricular white matter hypodensity likely minimal chronic small vessel ischemic disease in a patient of this age. Atherosclerotic calcification carotid siphons. There is no evidence of gross mass, hemorrhage or edema. No areas of mass-effect or infarct are seen. Ethmoid, sphenoid and right maxillary sinus demonstrates mucoperiosteal thickening. Aspect score 10 of 10 Impression: 1. Minimal white matter changes likely trace chronic small vessel ischemic disease in a patient of this age. 2. Otherwise unremarkable noncontrast CT scan of the head. No evidence of acute intracranial process. Stroke team findings called to Dr. Gallegos at 08 08. Report Dictated on --- Final --- Dictated: 05/15/2021 9:31 am Dictating Physician: MD JONES ANTHONY J Signed Date and Time: 05/15/2021 9:35 am Signed by: MD JONES ANTHONY J Transcribed Date and Time: 05/15/2021 9:31 Report last revised on 05/15/2021 09:35 EDT by MD JONES ANTHONY J [facility] Work Phone: Ronnie, [facility] Incoming Radiology Results From [facility] - 05/15/2021 9:52 AM EDT [facility]: [id number] Computed Tomography ACCESSION EXAM DATE/TIME PROCEDURE ORDERING PROVIDER [id number] 05/15/2021 09:[address] Head or Brain w/o MD BIRCH DOUGALAS R. Contrast CPT code 85421 Reason For Exam (CT Head or Brain w/o Contrast) stroke Addendum Examination: CT Head Clinical Information: stroke team, right-sided weakness Comparison: None Findings: Serial axial [address] images were obtained through the skull without intravenous contrast. Coronal, sagittal, and axial images were reconstructed. The ventricular system and cortical sulci are within normal limits without significant volume loss. Cornejo white differentiation is well preserved. Trace periventricular white matter hypodensity likely minimal chronic small vessel ischemic disease in a patient of this age. Atherosclerotic calcification carotid siphons. There is no evidence of gross mass, hemorrhage or edema. No areas of mass-effect or infarct are seen. Ethmoid, sphenoid and right maxillary sinus demonstrates mucoperiosteal thickening. Aspect score 10 of 10 Impression: 1. Minimal white matter changes likely trace chronic small vessel ischemic disease in a patient of this age. 2. Otherwise unremarkable noncontrast CT scan of the head. No evidence of acute intracranial process. Stroke team findings called to Dr. Gallegos at 08 08. Report Dictated on ---Final Addendum--- Signed Date and Time: 05/15/2021 9:35 am Signed by: MD JONES ANTHONY J Computed Tomography Report Examination: CT Head Clinical Information: stroke team, right-sided weakness Comparison: None Findings: Serial axial [address] images were obtained through the skull without intravenous contrast. Coronal, sagittal, and axial images were reconstructed. The ventricular system and cortical sulci are within normal limits without significant volume loss. Cornejo white differentiation is well preserved. Trace periventricular white matter hypodensity likely minimal chronic small vessel ischemic disease in a patient of this age. Atherosclerotic calcification carotid siphons. There is no evidence of gross mass, hemorrhage or edema. No areas of mass-effect or infarct are seen. Ethmoid, sphenoid and right maxillary sinus demonstrates mucoperiosteal thickening. Aspect score 10 of 10 Impression: 1. Minimal white matter changes likely trace chronic small vessel ischemic disease in a patient of this age. 2. Otherwise unremarkable noncontrast CT scan of the head. No evidence of acute intracranial process. Stroke team findings called to Dr. Gallegos at 08 08. Report Dictated on --- Final --- Dictated: 05/15/2021 9:31 am Dictating Physician: MD JONES ANTHONY J Signed Date and Time: 05/15/2021 9:35 am Signed by: MD JONES ANTHONY J Transcribed Date and Time: 05/15/2021 9:31 Report last revised on 05/15/2021 09:35 EDT by MD JONES ANTHONY J [facility] Work Phone: [facility] Work Phone: CT Head or Brain w/o Contras ton 05-15-2021 CT Head or Brain w/o Contrast Patient Name: KENN ARSHAD Sr Computed Tomography ACCESSION EXAM DATE/TIME PROCEDURE ORDERING PROVIDER [id number] 05/15/2021 14:[address] Head or Brain w/o [id number] -MAURI HERNANDEZ Contrast CPT code 09479 Reason For Exam (CT Head or Brain w/o Contrast) seizure Report CT scan head: 05/15/2021. CLINICAL INFORMATION: History of seizure, prior stroke team. FINDINGS: Scans of the head were performed at 3 mm slice thickness. Comparison was made to the earlier study same date. There is residual contrast from the earlier study. The ventricular system and cortical sulci are within normal limits. There is no evidence of hemorrhage or edema. No areas of mass effect or infarct are seen. There is extensive mucosal thickening in the ethmoid air cells on the left as well as the sphenoid sinus. IMPRESSION: Residual contrast from prior study. No significant interval change. Incidental sinusitis. Report Dictated on Final Dictated: 05/15/2021 2:51 pm Dictating Physician: MD NORRIS RISA Signed Date and Time: 05/15/2021 2:53 pm Signed by: MD NORRIS RISA Transcribed Date and Time: 05/15/2021 2:51 Normal [facility] CT Head or Brain w/o Contrast Patient Name: KENN ARSHAD Sr [facility]#: [id number] Computed Tomography ACCESSION EXAM DATE/TIME PROCEDURE ORDERING PROVIDER [id number] 05/15/2021 09:[address] Head or Brain w/o MD RAISSA, RODRI [place] CPT code 46940 Reason For Exam (CT Head or Brain w/o Contrast) stroke Addendum Examination: CT Head Clinical Information: stroke team, right-sided weakness Comparison: None Findings: Serial axial [address] images were obtained through the skull without intravenous contrast. Coronal, sagittal, and axial images were reconstructed. The ventricular system and cortical sulci are within normal limits without significant volume loss. Cornejo white differentiation is well preserved. Trace periventricular white matter hypodensity likely minimal chronic small vessel ischemic disease in a patient of this age. Atherosclerotic calcification carotid siphons. There is no evidence of gross mass, hemorrhage or edema. No areas of mass-effect or infarct are seen. Ethmoid, sphenoid and right maxillary sinus demonstrates mucoperiosteal thickening. Aspect score 10 of 10 Impression: 1. Minimal white matter changes likely trace chronic small vessel ischemic disease in a patient of this age. 2. Otherwise unremarkable noncontrast CT scan of the head. No evidence of acute intracranial process. Stroke team findings called to Dr. Gallegos at 08 08. Report Dictated on Final Addendum Signed Date and Time: 05/15/2021 9:35 am Signed by: MD JONES ANTHONY J Computed Tomography Report Examination: CT Head Clinical Information: stroke team, right-sided weakness Comparison: None Findings: Serial axial [address] images were obtained through the skull without intravenous contrast. Coronal, sagittal, and axial images were reconstructed. The ventricular system and cortical sulci are within normal limits without significant volume loss. Cornejo white differentiation is well preserved. Trace periventricular white matter hypodensity likely minimal chronic small vessel ischemic disease in a patient of this age. Atherosclerotic calcification carotid siphons. There is no evidence of gross mass, hemorrhage or edema. No areas of mass-effect or infarct are seen. Ethmoid, sphenoid and right maxillary sinus demonstrates mucoperiosteal thickening. Aspect score 10 of 10 Impression: 1. Minimal white matter changes likely trace chronic small vessel ischemic disease in a patient of this age. 2. Otherwise unremarkable noncontrast CT scan of the head. No evidence of acute intracranial process. Stroke team findings called to Dr. Gallegos at 08 08. Report Dictated on Final Dictated: 05/15/2021 9:31 am Dictating Physician: MD JONES ANTHONY J Signed Date and Time: 05/15/2021 9:35 am Signed by: MD JONES ANTHONY J Transcribed Date and Time: 05/15/2021 9:31 Report last revised on 05/15/2021 09:35 EDT by MD JONES ANTHONY J [facility] CTA Head Neck W WO ContrastO rdered By: Tono Birch on 05-15-2021 [id number] Computed Tomography ACCESSION EXAM DATE/TIME PROCEDURE ORDERING PROVIDER [id number] 05/15/2021 09:53 EDT CTA Head/Neck w/ + w/o MD BIRCH DOUGALAS R. contrast CPT code 24970 47590 Q9967 Reason For Exam (CTA Head/Neck w/ + w/o contrast) stroke Report Reason for examination: Acute stroke, brain attack patient, slurred speech, facial droop, left hemiparesis. CT angiograms of the intracranial vessels CT whole brain perfusion study CT angiograms of the extracranial vessels Dynamic 4D CT angiograms of the intracranial vessels and CT Perfusion study of the whole brain were performed following intravenous administration of 50 mL of Isovue 370. The data set was post processed 4D CT angiograms, 3-D shaded surface display CT angiograms, and color coded CT perfusion maps of cerebral blood volume, mean transit time, and cerebral blood flow . Following this, CT angiogram of the extracranial carotid and vertebral vessels was performed following bolus injection of 50 mL other Isovue-370. The CT angiographic studies of the extracranial vessels were post processed on a 3-D workstation with multiple shaded surface display and vessel probe CT angiographic analyses. Prior unenhanced scans of the head demonstrate no hemorrhage. There is no definite evidence of acute infarction. There is paranasal sinusitis multiple opacified ethmoid air cells and mucoperiosteal thickening. CT angio of the intracranial vessels: 4D dynamic CT angiography of the intracranial vessels was performed. There is normal flow in the right and left internal carotid arteries, the distal right and left vertebral arteries , and basilar artery. Some atherosclerotic calcification within the cavernous and right supraclinoid ICA segments. There is no significant stenosis or occlusion. There is filling of the right and left anterior, middle, and posterior cerebral circulations, with no evidence of acute occlusion, cut-off, or critical stenosis. There is no evidence of aneurysm or AVM. The cerebral venous structures and major dural sinuses appear normal. CT perfusion studies: CT perfusion studies demonstrate no global or regional perfusion abnormalities on the TTP, MTT, CBV, or CBF maps. Computed Tomography Report CT angio of the extracranial vessels: There are patent origins of the right and left common carotid arteries, and the right and left vertebral arteries. There are no stenoses. The right and left cervical vertebral arteries are patent throughout their lengths to the axis loop. There is no dissection or stenosis. The right carotid bifurcation is widely patent, with mild atherosclerotic plaque but no significant stenosis, less than 20 percent by NASCET criteria. There is no dissection. The external and internal carotid branches are patent. The left carotid bifurcation is widely patent, with mild atherosclerotic plaque but no significant stenosis, less than 20 percent by NASCET criteria. There is no dissection. The external and internal carotid branches are patent. IMPRESSION: No evidence of acute infarction or hemorrhage. No intracranial arterial occlusion, cut-off, or stenosis. No global or regional perfusion deficits. No evidence of carotid or vertebral occlusion, significant stenosis, or dissection. Report Dictated on --- Final --- Dictated: 05/15/2021 9:57 am Dictating Physician: MD JONES ANTHONY J Signed Date and Time: 05/15/2021 10:17 am Signed by: MD JONSE ANTHONY J Transcribed Date and Time: 05/15/2021 9:57 [facility] Work Phone: [facility], [facility] Incoming Radiology Results From [facility] - 05/15/2021 10:18 AM EDT Patient [facility]: [facility]AD [id number] Computed Tomography ACCESSION EXAM DATE/TIME PROCEDURE ORDERING PROVIDER [id number] 05/15/2021 09:53 EDT CTA Head/Neck w/ + w/o MD RAISSA, RODRI Wilcox contrast CPT code 50130 01560 Q9967 Reason For Exam (CTA Head/Neck w/ + w/o contrast) stroke Report Reason for examination: Acute stroke, brain attack patient, slurred speech, facial droop, left hemiparesis. CT angiograms of the intracranial vessels CT whole brain perfusion study CT angiograms of the extracranial vessels Dynamic 4D CT angiograms of the intracranial vessels and CT Perfusion study of the whole brain were performed following intravenous administration of 50 mL of Isovue 370. The data set was post processed 4D CT angiograms, 3-D shaded surface display CT angiograms, and color coded CT perfusion maps of cerebral blood volume, mean transit time, and cerebral blood flow . Following this, CT angiogram of the extracranial carotid and vertebral vessels was performed following bolus injection of 50 mL other Isovue-370. The CT angiographic studies of the extracranial vessels were post processed on a 3-D workstation with multiple shaded surface display and vessel probe CT angiographic analyses. Prior unenhanced scans of the head demonstrate no hemorrhage. There is no definite evidence of acute infarction. There is paranasal sinusitis multiple opacified ethmoid air cells and mucoperiosteal thickening. CT angio of the intracranial vessels: 4D dynamic CT angiography of the intracranial vessels was performed. There is normal flow in the right and left internal carotid arteries, the distal right and left vertebral arteries , and basilar artery. Some atherosclerotic calcification within the cavernous and right supraclinoid ICA segments. There is no significant stenosis or occlusion. There is filling of the right and left anterior, middle, and posterior cerebral circulations, with no evidence of acute occlusion, cut-off, or critical stenosis. There is no evidence of aneurysm or AVM. The cerebral venous structures and major dural sinuses appear normal. CT perfusion studies: CT perfusion studies demonstrate no global or regional perfusion abnormalities on the TTP, MTT, CBV, or CBF maps. Computed Tomography Report CT angio of the extracranial vessels: There are patent origins of the right and left common carotid arteries, and the right and left vertebral arteries. There are no stenoses. The right and left cervical vertebral arteries are patent throughout their lengths to the axis loop. There is no dissection or stenosis. The right carotid bifurcation is widely patent, with mild atherosclerotic plaque but no significant stenosis, less than 20 percent by NASCET criteria. There is no dissection. The external and internal carotid branches are patent. The left carotid bifurcation is widely patent, with mild atherosclerotic plaque but no significant stenosis, less than 20 percent by NASCET criteria. There is no dissection. The external and internal carotid branches are patent. IMPRESSION: No evidence of acute infarction or hemorrhage. No intracranial arterial occlusion, cut-off, or stenosis. No global or regional perfusion deficits. No evidence of carotid or vertebral occlusion, significant stenosis, or dissection. Report Dictated on --- Final --- Dictated: 05/15/2021 9:57 am Dictating Physician: MD JONES ANTHONY J Signed Date and Time: 05/15/2021 10:17 am Signed by: MD JONES ANTHONY J Transcribed Date and Time: 05/15/2021 9:57 [facility] Work Phone: [facility] Work Phone: CTA Head/Neck w/ + w/o contr ran 05-15-2021 CTA Head/Neck w/ + w/o contrast [facility]: [id number] Computed Tomography ACCESSION EXAM DATE/TIME PROCEDURE ORDERING PROVIDER [id number] 05/15/2021 09:53 EDT CTA Head/Neck w/ + w/o MD RAISSA, RODRI Wilcox contrast CPT code 24913 72625 Q9967 Reason For Exam (CTA Head/Neck w/ + w/o contrast) stroke Report Reason for examination: Acute stroke, brain attack patient, slurred speech, facial droop, left hemiparesis. CT angiograms of the intracranial vessels CT whole brain perfusion study CT angiograms of the extracranial vessels Dynamic 4D CT angiograms of the intracranial vessels and CT Perfusion study of the whole brain were performed following intravenous administration of 50 mL of Isovue 370. The data set was post processed 4D CT angiograms, 3-D shaded surface display CT angiograms, and color coded CT perfusion maps of cerebral blood volume, mean transit time, and cerebral blood flow . Following this, CT angiogram of the extracranial carotid and vertebral vessels was performed following bolus injection of 50 mL other Isovue-370. The CT angiographic studies of the extracranial vessels were post processed on a 3-D workstation with multiple shaded surface display and vessel probe CT angiographic analyses. Prior unenhanced scans of the head demonstrate no hemorrhage. There is no definite evidence of acute infarction. There is paranasal sinusitis multiple opacified ethmoid air cells and mucoperiosteal thickening. CT angio of the intracranial vessels: 4D dynamic CT angiography of the intracranial vessels was performed. There is normal flow in the right and left internal carotid arteries, the distal right and left vertebral arteries , and basilar artery. Some atherosclerotic calcification within the cavernous and right supraclinoid ICA segments. There is no significant stenosis or occlusion. There is filling of the right and left anterior, middle, and posterior cerebral circulations, with no evidence of acute occlusion, cut-off, or critical stenosis. There is no evidence of aneurysm or AVM. The cerebral venous structures and major dural sinuses appear normal. CT perfusion studies: CT perfusion studies demonstrate no global or regional perfusion abnormalities on the TTP, MTT, CBV, or CBF maps. Computed Tomography Report CT angio of the extracranial vessels: There are patent origins of the right and left common carotid arteries, and the right and left vertebral arteries. There are no stenoses. The right and left cervical vertebral arteries are patent throughout their lengths to the axis loop. There is no dissection or stenosis. The right carotid bifurcation is widely patent, with mild atherosclerotic plaque but no significant stenosis, less than 20 percent by NASCET criteria. There is no dissection. The external and internal carotid branches are patent. The left carotid bifurcation is widely patent, with mild atherosclerotic plaque but no significant stenosis, less than 20 percent by NASCET criteria. There is no dissection. The external and internal carotid branches are patent. IMPRESSION: No evidence of acute infarction or hemorrhage. No intracranial arterial occlusion, cut-off, or stenosis. No global or regional perfusion deficits. No evidence of carotid or vertebral occlusion, significant stenosis, or dissection. Report Dictated on Final Dictated: 05/15/2021 9:57 am Dictating Physician: MD JONES ANTHONY J Signed Date and Time: 05/15/2021 10:17 am Signed by: MD JONES ANTHONY J Transcribed Date and Time: 05/15/2021 9:57 Normal [facility] Complete Urinalysison 2020 Appearance (U) Clear Normal Clear [facility] Comment on above: Result Comment: . Performed By: #### T ROPN, MG3, HA1C2, HEMOG, CMP3M, LIPD2 #### [facility] [address], [place] Bacteria LM.HPF (Urine sed) [#/Area] Negative Normal Negative [facility] Comment on above: Result Comment: . Performed By: #### T ROPN, MG3, HA1C2, HEMOG, CMP3M, LIPD2 #### [facility] [address], [place] Bilirubin,Urine Negative Normal Negative [facility] Comment on above: Result Comment: . Performed By: #### T ROPN, MG3, HA1C2, HEMOG, CMP3M, LIPD2 #### [facility] [address], [place] Color (U) Light-Yellow Normal Lt. Yellow [facility] Comment on above: Result Comment: . Performed By: #### T ROPN, MG3, HA1C2, HEMOG, CMP3M, LIPD2 #### [facility] [address], [place] Glucose Ql (U) Normal Normal Normal (<70) [facility] Comment on above: Result Comment: . Performed By: #### T ROPN, MG3, HA1C2, HEMOG, CMP3M, LIPD2 #### [place] [address], [place] Ketone,Urine Negative Normal Negative [facility] Comment on above: Result Comment: . Performed By: #### T ROPN, MG3, HA1C2, HEMOG, CMP3M, LIPD2 #### [place] [address], [place] Leukocytes,Urine Negative Normal Negative [facility] Comment on above: Result Comment: . Performed By: #### T ROPN, MG3, HA1C2, HEMOG, CMP3M, LIPD2 #### [place] [address], [place] Mucous Threads Few Normal Negative [facility] Comment on above: Result Comment: . Performed By: #### T ROPN, MG3, HA1C2, HEMOG, CMP3M, LIPD2 #### [place] [address], [place] Nitrites,Urine Negative Normal Negative [facility] Comment on above: Result Comment: . Performed By: #### T ROPN, MG3, HA1C2, HEMOG, CMP3M, LIPD2 #### [place] [address], [place] Occult Blood,Urine 0.2 mg/dL Abnormal Negative [facility] Comment on above: Result Comment: . Performed By: #### T ROPN, MG3, HA1C2, HEMOG, CMP3M, LIPD2 #### [place] [address], [place] pH,Urine 6.5 Normal 5.0-8.0 [facility] Comment on above: Result Comment: . Performed By: #### T ROPN, MG3, HA1C2, HEMOG, CMP3M, LIPD2 #### [place] [address], [place] Protein (U) [Mass/Vol] 200 mg/dL Abnormal Negative [facility] Comment on above: Result Comment: . Performed By: #### T ROPN, MG3, HA1C2, HEMOG, CMP3M, LIPD2 #### [place] [address], [place] RBC, Urine 6 - 10 Abnormal 0-2 [facility] Comment on above: Result Comment: . Performed By: #### T ROPN, MG3, HA1C2, HEMOG, CMP3M, LIPD2 #### [place] [address] [place] [address] Specific [place],Urine > 1.030 Abnormal 1.005 - 1.030 [facility] Comment on above: Result Comment: . Performed By: #### T ROPN, MG3, HA1C2, HEMOG, CMP3M, LIPD2 #### [place] [address], [place] Squamous Epithelial Negative Normal 3-5 [facility] Comment on above: Result Comment: . Performed By: #### T ROPN, MG3, HA1C2, HEMOG, CMP3M, LIPD2 #### [place] [address] [place] [address] Urobilinogen,Urine Normal Normal Normal (0-1) [facility] Comment on above: Result Comment: . Performed By: #### T ROPN, MG3, HA1C2, HEMOG, CMP3M, LIPD2 #### [place] [address], [place] WBC, Urine 0 - 2 Normal 0-5 [facility] Comment on above: Result Comment: . Performed By: #### T ROPN, MG3, HA1C2, HEMOG, CMP3M, LIPD2 #### [place] [address] [place] [address] ED Provider Noteon ED Provider Note Emergency Department Encounter [facility] EMERGENCY DEPT Patient: Kenn Arshad . : 1955 Date of Evaluation: 05/15/2021 ED Provider: Tono Birch MD Chief Complaint No chief complaint on file. MARCIE Arshad . is a 65 y.o. male who presents to the emergency department complaining of stroke alert Patient has a history of coronary artery disease, takes no blood thinners, history of hypertension and lung cancer. He is on 2 L/min nasal cannula oxygen today, does not use this at baseline. Has a mild cough. Afebrile. Hypertensive at 190/74. According to EMS, patient went to bed normal last night at 2130. Woke up this morning with new onset right-sided vision loss, confused, does not remember his birthday or the year. Grossly ataxic, unable to walk a straight line without significant help. This is unusual for him. Does have a cough. Afebrile. Denies any chest pain palpitation shortness of breath despite this. Fingerstick blood sugar 104 according to EMS. Patient is outside the window for TPA, so he was taken to a thrombectomy capable stroke center based on his last known normal. EMS noted that over the course of the transport, his confusion is getting better, but his ataxia persists. Further review of systemslimited by acuity. All history obtained from EMS. ROS: Further review of systems limited by acuity Past History Past Medical History: Diagnosis Date ? Adenocarcinoma of right lung (HCC) 02/2021 rx pnd ? CAD (coronary artery disease) [address] Mcguire, neg stress test 08/26 at [facility] ? COPD (chronic obstructive pulmonary disease) (HCC) per cxr (smoker) ? DDD (degenerative disc disease), cervical NSAID therapy ? Essential hypertension 1993 ? Family history of diabetes mellitus sister ? H/O colonoscopy 02/2019 [facility]- small polyp- due 2023 ? History of colon polyps 2000 [facility], 2013, 2018 ? History of renal carcinoma 07/2006 Dr. Tariq ? History of SCC (squamous cell carcinoma) of skin 2011 scalp - [facility] [employer] ? Hypercholesterolemia LDL ? Mass of right lung 01/2021 Workup for lung nodule clinic pending ? PAD (peripheral artery disease) (HCC) 07/2019 Rt worse than Lt, pt defering angiogram rec per Dr. Eugene ? Prostate cancer screening 06/2020 ? Right carotid bruit 2014 <50% per repeat doppler, 12/26 ? Right inguinal hernia defers OR ? Smoker Past Surgical History: Procedure Laterality Date ? COLONOSCOPY 2013 [facility] ? COLONOSCOPY 02/2019 [facility]- small polyp- due 2023 ? CORONARY ANGIOPLASTY WITH STENT PLACEMENT 2002 ? LUNG REMOVAL, PARTIAL Right 03/12/2021 ? OTHER SURGICAL HISTORY 02/20/2021 EBUS/ENB ? OTHER SURGICAL HISTORY 03/12/2021 Right VATS thoracotomy ? SKIN CANCER DESTRUCTION 2012 squamous cell per [facility] ? TOTAL NEPHRECTOMY Left 2005 [place] Social History Socioeconomic History ? Marital status: Spouse name: Not on file ? Number of children: Not on file ? Years of education: Not on file ? Highest education level: Not on file Occupational History ? Not on file Tobacco Use ? Smoking status: Former Smoker Packs/day: 1.50 Years: 40.00 Pack years: 60.00 Types: Cigarettes Start date: 02/01/1981 ? Smokeless tobacco: Never Used Vaping Use ? Vaping Use: Never used Substance and Sexual Activity ? Alcohol use: Yes Alcohol/week: 14.0 standard drinks Types: 14 Cans of beer per week Comment: couple beers a day ? Drug use: Never ? Sexual activity: Not Currently Other Topics Concern ? Not on file Social History Narrative to [place] since . One son Michael with Haylie. 2 stepsons, 5 GC. SMOKER, no excessive ETOH. 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 Social Determinants of Health Financial Resource Strain: ? Difficulty of Paying Living Expenses: Food Insecurity: ? Worried About Running Out of Food in the Last Year: ? Ran Out of Food in the Last Year: Transportation Needs: ? Lack of Transportation (Medical): ? Lack of Transportation (Non-Medical): Physical Activity: ? Days of Exercise per Week: ? Minutes of Exercise per Session: Stress: ? Feeling of Stress : Social Connections: ? Frequency of Communication with Friends and Family: ? Frequency of Social Gatherings with Friends and Family: ? Attends Hindu Services: ? Active Member of Clubs or Organizations: ? Attends Club or Organization Meetings: ? Marital Status: Intimate Partner Violence: ? Fear of Current or Ex-Partner: ? Emotionally Abused: ? Physically Abused: ? Sexually Abused: Medications/Allergies Previous Medications ASPIRIN 81 MG EC TABLET Take 81 mg by mouth daily CARVEDILOL (COREG) 25 MG TABLET Take 1 tablet by mouth 2 times daily CILOSTAZOL (PLETAL) 50 MG TABLET Take 1 tablet by mouth 2 times daily ENALAPRIL (VASOTEC) 20 MG TABLET Inc to 20 mg BID GABAPENTIN (NEURONTIN) 300 MG CAPSULE Take 1 capsule by mouth 2 times daily for (more content not included)... Normal [facility] EthanolOrdered By: Unknown R esult on 05-15-2021 Ethanol Lvl <0.010 0.000 - 0.010 g/dL [employer] Work Phone: Comment on above: NOTE: This result is for medical treatment only. Analysis performed using non-forensic procedures. Test Performed by [facility], [address] [place] [address] [employer] Work Phone: [employer] Work Phone: Ethanol Serum/Plasmaon 05-15 Ethanol-Serum/Plasma < 0.010 Normal 0.000-0.010 [facility] Comment on above: Result Comment: NOTE : This result is for medical treatment only. Analysis performed using non-forensic procedures. Performed By: #### H EMOG, TROPN #### [facility] [address], [place] Glucose,Bedsideon 05-15-2021 Glucose [Mass/Vol] 118 mg/dL High 70-100 [facility] Comment on above: Result Comment: Test performed by glucose meter. Results may be 10%-15% lower than serum/plasma values. (CLIA ID [id number]) Performed By: #### T ROPN, MG3, HA1C2, HEMOG, CMP3M, LIPD2 #### [facility] [address], [place] HCG Qualitative, SerumOrdere d By: Tono Birch on 05-15-2021 hCG Qual Disregard [employer] Work Phone: Comment on above: Reference Range: NEG ATIVE CORRECTED RESULT...Previous above value was NEGATIVE, verified on 05/15/21 at 10:01 by 0SW . Effective 01/20/2020, the reference interval for the qualitative test has been updated. This test detects hCG at concentrations of 10 mIU/L or greater in serum. Test Performed by [facility], [address] [place] [address] [facility] Work Phone: [employer] Work Phone: Hemogramon 05-15-2021 Erythrocyte distribution width (RBC) [Ratio] 14.6 % High 11.5-14.5 [facility] Comment on above: Performed By: #### H EMOG, TROPN #### [facility] [address], [place] Hematocrit (Bld) [Volume fraction] 39.1 % Low 40.0-52.0 [facility] Comment on above: Performed By: #### H EMOG TROPN #### [facility] [address], [place] Hemoglobin (Bld) [Mass/Vol] 13.2 g/dL Normal 13.0-18.0 [facility] Comment on above: Performed By: #### H EMOG, TROPN #### [facility] [address], [place] MCH (RBC) [Entitic mass] 26.5 pg Normal 26.0-34.0 [facility] Comment on above: Performed By: #### H EMOG TROPN #### [facility] [address], [place] MCHC 33.8 % Normal 32.0-36.0 [facility] Comment on above: Performed By: #### H EMOG TROPN #### [facility] [address], [place] MCV (RBC) [Entitic vol] 78.6 fL Low 80.0-98.0 [facility] Comment on above: Performed By: #### H EMOG TROPN #### [facility] [address], [place] Platelet mean volume (Bld) [Entitic vol] 7.6 fL Normal 7.4-10.4 [facility] Comment on above: Performed By: #### H EMOG, TROPN #### [facility] [address], [place] Platelets (Bld) [#/Vol] 150 10*3/uL Normal 140-440 [facility] Comment on above: Performed By: #### H EMOG, TROPN #### [facility] [address], [place] RBC (Bld) [#/Vol] 4.97 10*6/uL Normal 4.40-5.90 [facility] Comment on above: Performed By: #### H EMOG, TROPN #### [facility] [address] [place] [address] WBC (Bld) [#/Vol] 8.3 10*3/uL Normal 3.6-10.7 [facility] Comment on above: Performed By: #### H CHARLOTTE IVAN #### [place] [address], [place] Erythrocyte distribution width (RBC) [Ratio] 14.7 % High 11.5-14.5 [facility] Comment on above: Performed By: #### H CHARLOTTE IVAN #### [place] [address], [place] Hematocrit (Bld) [Volume fraction] 39.5 % Low 40.0-52.0 [facility] Comment on above: Performed By: #### H CHARLOTTE IVAN #### [place] [address], [place] Hemoglobin (Bld) [Mass/Vol] 13.7 g/dL Normal 13.0-18.0 [facility] Comment on above: Performed By: #### H CHARLOTTE IVAN #### [place] [address], [place] MCH (RBC) [Entitic mass] 27.2 pg Normal 26.0-34.0 [facility] Comment on above: Performed By: #### H CHARLOTTE IVAN #### [place] [address] [place], [place] MCHC 34.8 % Normal 32.0-36.0 [facility] Comment on above: Performed By: #### H CHARLOTTE IVAN #### [place] [address], [place] MCV (RBC) [Entitic vol] 78.3 fL Low 80.0-98.0 [facility] Comment on above: Performed By: #### H CHARLOTTE IVAN #### [place] [address], [place] Platelet mean volume (Bld) [Entitic vol] 8.0 fL Normal 7.4-10.4 [facility] Comment on above: Performed By: #### H CHARLOTTE IVAN #### [address] [address] Platelets (Bld) [#/Vol] 144 10*3/uL Normal 140-440 [facility] Comment on above: Performed By: #### H DUY IVANN #### [address] [address] RBC (Bld) [#/Vol] 5.04 10*6/uL Normal 4.40-5.90 [facility] Comment on above: Performed By: #### H MONCHO TROPN #### [address] [address] WBC (Bld) [#/Vol] 6.2 10*3/uL Normal 3.6-10.7 [facility] Comment on above: Performed By: #### H DUY IVANN #### [address] [address] No Panel InformationOrdered By: Unknown Result on 05-15-2021 Test Performed by [facility], [address] [place] [address] [facility] Work Phone: [phone] [facility] Work Phone: [phone] POC BMP, WHOLE BLOODOrdered By: Unknown Result on 05-15-2021 Anion gap [Moles/Vol] 10.00 mmol/L 3.00 - 13.00 mmol/L [facility] Work Phone: Calcium [Mass/Vol] 4.6 mg/dL 4.3 - 5.2 mg/dL [facility] Work Phone: Comment on above: Performed by [facility] [facility] CLIA ID:[id number] [place], [place] Chloride [Moles/Vol] 106 mmol/L 98 - 11 4 mmol/L [facility] Work Phone: CO2 [Moles/Vol] 22 mmol/L 21 - 29 mmol/L [facility] Work Phone: Creatinine [Mass/Vol] 0.90 mg/dL 0.60 - 1.30 mg/dL [facility] Work Phone: GFR Non- 87.7 mL/min >60 [facility] Work Phone: Comment on above: KDIGO guidelines pro vide the following GFR categories: Stage GFR(ml/min/1.73 m2) Terms G1 >=90 Normal or high G2 60-89 Mildly decreased* G3a 45-59 Mildly to moderately decreased G3b 30-44 Moderately to severely decreased G4 15-29 Severely decreased G5 <15 Kidney failure *Relative to young adult level. In the absence of evidence of kidney damage, neither GFR category G1 nor G2 fulfill the criteria for CKD. The CKD-EPI equation is validated in individuals 18 years of age and older. Currently the best equation for estimating glomerular filtration rate (GFR) from serum creatinine in children is the Bedside Almodovar equation. It is less accurate in patients with extremes of muscle mass, restriction of dietary protein, ingestion of creatine, extra-renal metabolism of creatinine, or treatment with medications that affect renal tubular creatinine secretion. GFR/1.73 sq M.predicted among blacks MDRD (S/P/Bld) [Vol rate/Area] mL/min/{1.73_m2} >60 mL/min [facility] Work Phone: [phone] Glucose [Mass/Vol] 111 mg/dL High 70 - 100 mg/dL [facility] Work Phone: [phone] Interpretation and review of laboratory results Abnormal [facility] Work Phone: [phone] Potassium [Moles/Vol] 5.4 mmol/L High 3.4 - 5.1 mmol/L [facility] Work Phone: [phone] Sodium [Moles/Vol] 138 mmol/L 133 - 145 mmol/L [facility] Work Phone: [phone] Urea nitrogen [Mass/Vol] 21 mg/dL 4 - 22 mg/dL [facility] Work Phone: [phone] Test Performed by [facility], [address] [place] [address] [facility] Work Phone: [phone] [facility] Work Phone: [phone] POCT GlucoseOrdered By: Ginette Esposito on 05-15-2021 Glucose [Mass/Vol] 118 mg/dL High 70 - 100 mg/dL [facility] Work Phone: Comment on above: Test performed by ucose meter. Results may be 10%-15% lower than serum/plasma values. (CLIA ID [id number]) Interpretation and review of laboratory results Abnormal [facility] Work Phone: Test Performed by [facility], [address] [place] [address] [facility] Work Phone: [facility] Work Phone: Protime AND APTTon aPTT Coag (Bld) [Time] 27.1 s Normal 20.0-30.5 [facility] Comment on above: Result Comment: NOTE : The therapeutic time for Heparin anticoagulation, based on Xa activity inhibition, is an APTT of 46-80 seconds. Performed By: #### H CHARLOTTE IVAN #### [address] [address] INR 1.0 Normal 0.9-1.1 [facility] Comment on above: Result Comment: Tim mmended Anticoagulant Therapy: SEE BELOW ----- INR of 2.0 - 3.0 : - Prophylaxis of Venous Thrombosis (high-risk surgery) - Treatment of Venous Thrombosis - Treatment of Pulmonary Embolism (Includes tissue heart valves, Acute Myocardial Infarction to prevent systemic embolism, Valvular Heart Disease, and Atrial Fibrillation) ----- INR of 2.5 - 3.5 : - Mechanical Prosthetic Valves (high risk) - If oral anticoagulant therapy is used to prevent Myocardial Infarction Performed By: #### H CHARLOTTE IVAN #### [address] [address] PT Coag (PPP) [Time] 10.7 s Normal 9.0-12.0 [facility] Comment on above: Result Comment: . Performed By: #### H DUY IVANN #### [address] [address] Protime/INR & PTTOrdered By: Unknown Result on 05-15-2021 aPTT Coag (Bld) [Time] 27.1 s 20.0 - 30.5 s [facility] Work Phone: Comment on above: NOTE: The therapeuti c time for Heparin anticoagulation, based on Xa activity inhibition, is an APTT of 46-80 seconds. INR Coag (Bld) [Relative time] 1.0 {INR} [facility] Work Phone: Comment on above: Recommended Anticoag ulant Therapy: SEE BELOW ----- INR of 2.0 - 3.0 : - Prophylaxis of Venous Thrombosis (high-risk surgery) - Treatment of Venous Thrombosis - Treatment of Pulmonary Embolism (Includes tissue heart valves, Acute Myocardial Infarction to prevent systemic embolism, Valvular Heart Disease, and Atrial Fibrillation) ----- INR of 2.5 - 3.5 : - Mechanical Prosthetic Valves (high risk) - If oral anticoagulant therapy is used to prevent Myocardial Infarction PT Coag (PPP) [Time] 10.7 s 9.0 - 12.0 s [facility] Work Phone: Comment on above: . TroponinOrdered By: Tono Birch on 05-15-2021 Interpretation and review of laboratory results Abnormal [facility] Work Phone: [phone] Troponin I.cardiac [Mass/Vol] 0.052 ng/mL High 0.000 - 0.034 ng/mL [employer] Work Phone: Comment on above: . Test Performed by [facility], [facility] [place] [address] [employer] Work Phone: [facility] Work Phone: TroponinOrdered By: Unknown Result on 05-15-2021 Interpretation and review of laboratory results Abnormal [facility] Work Phone: [phone] Troponin I.cardiac [Mass/Vol] 0.039 ng/mL High 0.000 - 0.034 ng/mL [employer] Work Phone: Comment on above: Slightly hemolysed, interpret with caution. . Test Performed by [facility], [facility] [place] [address] [employer] Work Phone: [phone] [employer] Work Phone: [phone] Troponin Ion 05-15-2021 Troponin I.cardiac [Mass/Vol] 0.052 ng/mL High 0.000-0.034 [facility] Comment on above: Result Comment: . Performed By: #### H EMOSherie TROPN #### [facility] [address] [place] [address] Troponin I.cardiac [Mass/Vol] 0.039 ng/mL High 0.000-0.034 [facility] Comment on above: Result Comment: Slig htly hemolysed, interpret with caution. . Performed By: #### H EMOG, TROPN #### [facility] [address] [place] [address] UrinalysisOrdered By: Amparo Birch on 05-15-2021 Appearance (U) Clear Clear NA [facility] Work Phone: [phone] Comment on above: . Bacteria, UA Negative Negative /[HPF] [facility] Work Phone: [phone] Comment on above: . Bilirubin Urine Negative Negative mg/dL [facility] Work Phone: [phone] Comment on above: . Color (U) Light-Yellow Lt. Yellow NA [facility] Work Phone: [phone] Comment on above: . Glucose, Ur Normal Normal (<70) mg/dL [facility] Work Phone: [phone] Comment on above: . Interpretation and review of laboratory results Abnormal [facility] Work Phone: [phone] Ketones Ql (U) Negative Negative mg/dL [facility] Work Phone: [phone] Comment on above: . LEUKOCYTES, UA Negative Negative Meera/uL [facility] Work Phone: [phone] Comment on above: . Mucous Threads Few Negative /[LPF] [facility] Work Phone: [phone]- Comment on above: . Nitrite, Urine Negative Negative NA [facility] Work Phone: [phone]- Comment on above: . Occult Blood,Urine 0.2 mg/dL Abnormal Negative [facility] Work Phone: [phone] Comment on above: . pH (U) 6.5 [pH] [facility] Work Phone: [phone] Comment on above: . Protein (U) [Mass/Vol] 200 mg/dL Abnormal Negative [facility] Work Phone: [phone] Comment on above: . RBC, UA 6-10 Abnormal 0 - 2 /[HPF] [facility] Work Phone: Comment on above: . Specific [place], Urine >1.030 Abnormal [facility] Work Phone: Comment on above: . Squam Epithel, UA Negative 3 - 5 /[HPF] [facility] Work Phone: Comment on above: . Urobilinogen, Urine Normal Normal ( 0-1) mg/dL [facility] Work Phone: Comment on above: . WBC, UA 0-2 0 - 5 /[HPF] [facility] Work Phone: Comment on above: . Test Performed by [facility], [address] [place] [id number] [facility] Work Phone: [facility] Work Phone: XR CHEST PORTABLEOrdered By: Tono Birch on 05-15-2021 Patient Name: KENN VAUGHN Sr Diagnostic Radiology ACCESSION EXAM DATE/TIME PROCEDURE ORDERING PROVIDER [id number] 05/15/2021 10:42 EDT CR Chest Portable MD BIRCH DOUGALAS R. CPT code 10572 Reason For Exam (CR Chest Portable) stroke Report Portable chest /05/29: Clinical Information: Stroke. Findings: A single AP portable view of the chest was obtained at 1020 hours. Comparison was made to the prior study 03/15/2021. The Lbfcde-y-Yjmo type catheter is now present right. The trachea is midline. The heart is not enlarged. There is minimal atelectasis in the base. There may be a small right pleural effusion. There is an element of underlying obstructive lung disease. There may be a mild degree of vascular congestion. Report Dictated on --- Final --- Dictated: 05/15/2021 10:41 am Dictating Physician: MD NORRIS RISA Signed Date and Time: 05/15/2021 10:42 am Signed by: MD NORRIS RISA Transcribed Date and Time: 05/15/2021 10:41 [facility] Work Phone: Ronnie, [facility] Incoming Rad[facility] Results From [facility] - 05/15/2021 10:43 AM EDT [facility]: [id number] ACCESSION EXAM DATE/TIME PROCEDURE ORDERING PROVIDER [id number] 05/15/2021 10:42 EDT CR Chest Portable MD RAISSA, RODRI Wilcox CPT code 23514 Reason For Exam (CR Chest Portable) stroke Report Portable chest /05/29: Clinical Information: Stroke. Findings: A single AP portable view of the chest was obtained at 1020 hours. Comparison was made to the prior study 03/15/2021. The Ebzeyr-k-Jhen type catheter is now present right. The trachea is midline. The heart is not enlarged. There is minimal atelectasis in the base. There may be a small right pleural effusion. There is an element of underlying obstructive lung disease. There may be a mild degree of vascular congestion. Report Dictated on --- Final --- Dictated: 05/15/2021 10:41 am Dictating Physician: MD NORRIS RISA Signed Date and Time: 05/15/2021 10:42 am Signed by: MD NORRIS RISA Transcribed Date and Time: 05/15/2021 10:41 [facility] Work Phone: [facility] Work Phone: hCG Qual Pregon 05-15-2021 hCG Qual Preg Disregard Normal [facility] Comment on above: Result Comment: Refe rence Range: NEGATIVE CORRECTED RESULT...Previous above value was NEGATIVE, verified on 05/15/21 at 10:01 by 0SW . Effective 01/20/2020, the reference interval for the qualitative test has been updated. This test detects hCG at concentrations of 10 mIU/L or greater in serum. Performed By: #### H CHARLOTTE IVAN #### [facility] [address] [place] [id number] Basic Metabolic Panelon 05-0 Calcium [Mass/Vol] 8.9 mg/dL Normal 8.4-10.4 [facility] Comment on above: Performed By: #### H CHARLOTTE IVAN #### [facility] [address], [place] Anion gap [Moles/Vol] 4 mmol/L Normal 3-13 [facility] Comment on above: Performed By: #### H DUY IVANN #### [facility] [address], [place] CO2 [Moles/Vol] 27 mmol/L Normal 22-30 [facility] Comment on above: Performed By: #### H DUY IVANN #### [facility] [address], [place] Creatinine [Mass/Vol] 0.75 mg/dL Normal 0.52-1.25 [facility] Comment on above: Performed By: #### H DUY IVANN #### [facility] [address], [place] eGFR OTHER > 90.0 Normal >60 [facility] Comment on above: Result Comment: KDIG O guidelines provide the following GFR categories: Stage GFR(ml/min/1.73 m2) Terms G1 >=90 Normal or high G2 60-89 Mildly decreased* G3a 45-59 Mildly to moderately decreased G3b 30-44 Moderately to severely decreased G4 15-29 Severely decreased G5 <15 Kidney failure *Relative to young adult level. In the absence of evidence of kidney damage, neither GFR category G1 nor G2 fulfill the criteria for CKD. The CKD-EPI equation is validated in individuals 18 years of age and older. Currently the best equation for estimating glomerular filtration rate (GFR) from serum creatinine in children is the Bedside Almodovar equation. It is less accurate in patients with extremes of muscle mass, restriction of dietary protein, ingestion of creatine, extra-renal metabolism of creatinine, or treatment with medications that affect renal tubular creatinine secretion. Performed By: #### H CHARLOTTE IVAN #### [facility] [address], [place] GFR/1.73 sq M.predicted among blacks MDRD (S/P/Bld) [Vol rate/Area] mL/min/{1.73_m2} Normal >60 [facility] Comment on above: Performed By: #### H CHARLOTTE IVAN #### [facility] [address] [place] [address] Glucose [Mass/Vol] 105 mg/dL High 70-100 [facility] Comment on above: Performed By: #### H CHARLOTTE IVAN #### [facility] [address], [place] Urea nitrogen [Mass/Vol] 15 mg/dL Normal 7-20 [facility] Comment on above: Performed By: #### H CHARLOTTE IVAN #### [facility] [address], [place] Chloride [Moles/Vol] 102 mmol/L Normal 98-107 [facility] Comment on above: Performed By: #### H CHARLOTTE IVAN #### [place] [address] [address], [place] Potassium [Moles/Vol] 4.0 mmol/L Normal 3.5-5.1 [facility] Comment on above: Performed By: #### CHARLOTTE MEDINA #### [facility] [address], [place] Sodium [Moles/Vol] 133 mmol/L Low 135-145 [facility] Comment on above: Performed By: #### H CHARLOTTE IVAN #### [place] [address] [address], [place] Basic Metabolic PanelOrdered By: Evelio Hernandez on 03-15-2021 Anion gap [Moles/Vol] 4 mmol/L 3 - 13 mmol/L [facility] Work Phone: Calcium [Mass/Vol] 8.9 mg/dL 8.4 - 10. 4 mg/dL [facility] Work Phone: Chloride [Moles/Vol] 102 mmol/L 98 - 10 7 mmol/L [facility] Work Phone: CO2 [Moles/Vol] 27 mmol/L 22 - 30 mmol/L [facility] Work Phone: Creatinine [Mass/Vol] 0.75 mg/dL 0.52 - 1.25 mg/dL [facility] Work Phone: EGFR IF NonAfrican [place]raltarian >90.0 >60 mL/min [facility] Work Phone: [phone] Comment on above: KDIGO guidelines pro vide the following GFR categories: Stage GFR(ml/min/1.73 m2) Terms G1 >=90 Normal or high G2 60-89 Mildly decreased* G3a 45-59 Mildly to moderately decreased G3b 30-44 Moderately to severely decreased G4 15-29 Severely decreased G5 <15 Kidney failure *Relative to young adult level. In the absence of evidence of kidney damage, neither GFR category G1 nor G2 fulfill the criteria for CKD. The CKD-EPI equation is validated in individuals 18 years of age and older. Currently the best equation for estimating glomerular filtration rate (GFR) from serum creatinine in children is the Bedside Almodovar equation. It is less accurate in patients with extremes of muscle mass, restriction of dietary protein, ingestion of creatine, extra-renal metabolism of creatinine, or treatment with medications that affect renal tubular creatinine secretion. GFR/1.73 sq M.predicted among blacks MDRD (S/P/Bld) [Vol rate/Area] mL/min/{1.73_m2} >60 mL/min [facility] Work Phone: Glucose [Mass/Vol] 105 mg/dL High 70 - 100 mg/dL [facility] Work Phone: [phone] Interpretation and review of laboratory results Abnormal [facility] Work Phone: Potassium [Moles/Vol] 4.0 mmol/L 3.5 - 5.1 mmol/L [facility] Work Phone: Sodium [Moles/Vol] 133 mmol/L Low 135 - 145 mmol/L [facility] Work Phone: Urea nitrogen (BldV) [Mass/Vol] 15 mg/dL 7 - 20 mg/dL [facility] Work Phone: Test Performed by [facility], [address] [place] [address] [facility] Work Phone: [phone] CBC Auto DifferentialOrdered By: Evelio Hernandez on 03-15-2021 Absolute Baso # 0.0 10*3/uL 0.0 - 0.2 10*3/uL [facility] Work Phone: [phone] Absolute Neut # 3.8 10*3/uL 1.8 - 7.0 10*3/uL [facility] Work Phone: [phone] Basophils/100 WBC (Bld) 0.6 % 0.0 - 2.0 % [facility] Work Phone: [phone] Eosinophils (Bld) [#/Vol] 0.2 10*3/uL 0.0 - 0.5 10*3/uL [facility] Work Phone: [phone] Eosinophils/100 WBC (Bld) 4.5 % 1.0 - 6.0 % [facility] Work Phone: [phone] Granulocytes/100 WBC (Bld) 69.9 % 40.0 - 80.0 % [facility] Work Phone: [phone] Hematocrit (Bld) [Volume fraction] 35.2 % Low 40.0 - 52.0 % [facility] Work Phone: [phone] Hemoglobin.gastrointes tinal spec 1 Ql (Stl) 12.0 g/dL Low 13.0 - 18.0 g/dL [facility] Work Phone: [phone] Comment on above: Repeated. Interpretation and review of laboratory results Abnormal [facility] Work Phone: [phone] Lymphocytes (Bld) [#/Vol] 0.9 10*3/uL Low 1.0 - 4.3 10*3/uL [facility] Work Phone: [phone] Lymphocytes/100 WBC (Bld) 16.7 % Low 20.0 - 40.0 % [facility] Work Phone: [phone] MCH (RBC) [Entitic mass] 27.7 pg 26.0 - 34.0 pg [facility] Work Phone: [phone] MCHC (RBC) [Mass/Vol] 34.3 % 32.0 - 36.0 % [facility] Work Phone: [phone] MCV (RBC) [Entitic vol] 80.9 fL 80.0 - 98.0 fL [facility] Work Phone: [phone] Monocytes (Bld) [#/Vol] 0.5 10*3/uL 0.0 - 0.8 10*3/uL [facility] Work Phone: [phone] Monocytes/100 WBC (Bld) 8.3 % 2.0 - 10.0 % [facility] Work Phone: Platelet distribution width (Bld) [Ratio] 14.9 % High 11.5 - 14.5 % [facility] Work Phone: [phone] Platelet mean volume (Bld) [Entitic vol] 8.1 fL 7.4 - 10.4 fL [facility] Work Phone: [phone] Platelets (Bld) [#/Vol] 143 10*3/uL 140 - 440 10*3/uL [facility] Work Phone: [phone] RBC (Bld) [#/Vol] 4.35 10*6/uL Low 4.40 - 5.9 0 10*6/uL [facility] Work Phone: [phone] WBC (Bld) [#/Vol] 5.5 10*3/uL 3.6 - 10.7 10*3/uL [facility] Work Phone: [phone] Test Performed by [address] [address] [employer] Work Phone: CR Chest Portableon 03-15-20 21 CR Chest Portable Patient Name: [facility]ENN [facility]AUGH[id number] ACCESSION EXAM DATE/TIME PROCEDURE ORDERING PROVIDER [id number] 03/15/2021 10:50 EDT CR Chest Portable EVELIO HERNANDEZ CPT code 78378 Reason For Exam (CR Chest Portable) post-chest tube removal Report CLINICAL INFORMATION: Status post right-sided chest tube removal. CHEST X-RAY, PORTABLE, 1046: An AP portable view is compared to the prior examination of earlier the same day at 0531 hours. The right-sided chest tube has been removed. There is similar atelectasis in both lower lungs. There is no visible pneumothorax. There is slight overall volume loss of the right hemithorax relative to the left, unchanged. No other acute process or interval change. Report Dictated on Final Dictated: 03/15/2021 10:55 am Dictating Physician: MD JOVEL HARLAN Signed Date and Time: 03/15/2021 10:56 am Signed by: MD JOVEL HARLAN Transcribed Date and Time: 03/15/2021 10:55 Normal [facility] CR Chest Portable Patient Name: [facility]GH[id number] Radiology ACCESSION EXAM DATE/TIME PROCEDURE ORDERING PROVIDER [id number] 03/15/2021 06:05 EDT CR Chest Portable [id number] -MERLENE CASTRO CPT code 82905 Reason For Exam (CR Chest Portable) s/p VATS Report PORTABLE CHEST: INDICATION: S/P VATS COMPARISON: 03/14/2021 Obtained at 0531 hours. A single portable AP radiograph of the chest was obtained. The heart is normal in size. The mediastinal silhouette is normal. There is bibasal atelectasis. A right-sided chest tube is present. There is no pleural thickening. Arthritic changes of the spine and shoulders are present. IMPRESSION: Bibasal atelectasis. No acute infiltrates. Report Dictated on Final Dictated: 03/15/2021 9:49 am Dictating Physician: DO LAZARO ALFRED Signed Date and Time: 03/15/2021 10:01 am Signed by: DO LAZARO ALFRED Transcribed Date and Time: 03/15/2021 9:49 Normal [facility] Hemogram w/ Autodiffon 03-15 Abs Baso Cnt 0.0 10*3/uL Normal 0.0-0.2 [facility] Comment on above: Performed By: #### H CHARLOTTE IVAN #### [address] [address] Abs Neutrophile Cnt 3.8 10*3/uL Normal 1.8-7.0 [facility] Comment on above: Performed By: #### H CHARLOTTE IVAN #### [address] [address] Basophils/100 WBC (Bld) 0.6 % Normal 0.0-2.0 [facility] Comment on above: Performed By: #### H CHARLOTTE IVAN #### [facility] [address] [place] [address] Eosinophils (Bld) [#/Vol] 0.2 10*3/uL Normal 0.0-0.5 [facility] Comment on above: Performed By: #### H EMOG TROPN #### [facility] [address] [place] [address] Eosinophils/100 WBC (Bld) 4.5 % Normal 1.0-6.0 [facility] Comment on above: Performed By: #### H EMOG TROPN #### [facility] [address] [place] [address] Erythrocyte distribution width (RBC) [Ratio] 14.9 % High 11.5-14.5 [facility] Comment on above: Performed By: #### H EMOG TROPN #### [place] [address] [place] [address] Granulocytes/100 WBC (Bld) 69.9 % Normal 40.0-80.0 [facility] Comment on above: Performed By: #### H EMOG TROPN #### [facility] [address], [place] Hematocrit (Bld) [Volume fraction] 35.2 % Low 40.0-52.0 [facility] Comment on above: Performed By: #### H EMOG, TROPN #### [facility] [address] [place] [address] Hemoglobin (Bld) [Mass/Vol] 12.0 g/dL Low 13.0-18.0 [facility] Comment on above: Result Comment: Repe ated. Performed By: #### H EMOG TROPN #### [facility] [address] [place] [address] Lymphocytes (Bld) [#/Vol] 0.9 10*3/uL Low 1.0-4.3 [facility] Comment on above: Performed By: #### H EMOG, TROPN #### [facility] [address] [place] [address] Lymphocytes/100 WBC (Bld) 16.7 % Low 20.0-40.0 [facility] Comment on above: Performed By: #### H EMOG, TROPN #### [facility] [address], [place] MCH (RBC) [Entitic mass] 27.7 pg Normal 26.0-34.0 [facility] Comment on above: Performed By: #### H EMOG, TROPN #### [facility] [address], [place] MCHC 34.3 % Normal 32.0-36.0 [facility] Comment on above: Performed By: #### H EMOG, TROPN #### [facility] [address], [place] MCV (RBC) [Entitic vol] 80.9 fL Normal 80.0-98.0 [facility] Comment on above: Performed By: #### H EMOG, TROPN #### [place] [address] [address], [place] Monocytes (Bld) [#/Vol] 0.5 10*3/uL Normal 0.0-0.8 [facility] Comment on above: Performed By: #### H EMOG TROPN #### [facility] [address], [place] Monocytes/100 WBC (Bld) 8.3 % Normal 2.0-10.0 [facility] Comment on above: Performed By: #### H EMOG, TROPN #### [facility] [address], [place] Platelet mean volume (Bld) [Entitic vol] 8.1 fL Normal 7.4-10.4 [facility] Comment on above: Performed By: #### H EMOG, TROPN #### [facility] [address], [place] Platelets (Bld) [#/Vol] 143 10*3/uL Normal 140-440 [facility] Comment on above: Performed By: #### H EMOG, TROPN #### [facility] [address], [place] RBC (Bld) [#/Vol] 4.35 10*6/uL Low 4.40-5.90 [facility] Comment on above: Performed By: #### H CHARLOTTE IVAN #### [facility] [address] [place] [address] WBC (Bld) [#/Vol] 5.5 10*3/uL Normal 3.6-10.7 [facility] Comment on above: Performed By: #### H CHARLOTTE IVAN #### [facility] [address] [place] [address] XR CHEST PORTABLEOrdered By: Evelio Hernandez on 03-15-2021 Patient Name: KENN VAUGHN Sr Diagnostic Radiology ACCESSION EXAM DATE/TIME PROCEDURE ORDERING PROVIDER [id number] 03/15/2021 10:50 EDT CR Chest Portable EVELIO HERNANDEZ CPT code 19317 Reason For Exam (CR Chest Portable) post-chest tube removal Report CLINICAL INFORMATION: Status post right-sided chest tube removal. CHEST X-RAY, PORTABLE, 1046: An AP portable view is compared to the prior examination of earlier the same day at 0531 hours. The right-sided chest tube has been removed. There is similar atelectasis in both lower lungs. There is no visible pneumothorax. There is slight overall volume loss of the right hemithorax relative to the left, unchanged. No other acute process or interval change. Report Dictated on --- Final --- Dictated: 03/15/2021 10:55 am Dictating Physician: MD JOVEL HARLAN Signed Date and Time: 03/15/2021 10:56 am Signed by: MD JOVEL HARLAN Transcribed Date and Time: 03/15/2021 10:55 [facility] Work Phone: Ronnie, [facility] Incoming Radiology Results From [facility] - 03/15/2021 10:57 AM EDT Patient Name: KENN ARSHAD Sr Diagnostic Radiology ACCESSION EXAM DATE/TIME PROCEDURE ORDERING PROVIDER [id number] 03/15/2021 10:50 EDT CR Chest Portable EVELIO HERNANDEZ CPT code 85757 Reason For Exam (CR Chest Portable) post-chest tube removal Report CLINICAL INFORMATION: Status post right-sided chest tube removal. CHEST X-RAY, PORTABLE, 1046: An AP portable view is compared to the prior examination of earlier the same day at 0531 hours. The right-sided chest tube has been removed. There is similar atelectasis in both lower lungs. There is no visible pneumothorax. There is slight overall volume loss of the right hemithorax relative to the left, unchanged. No other acute process or interval change. Report Dictated on --- Final --- Dictated: 03/15/2021 10:55 am Dictating Physician: MD JOVEL HARLAN Signed Date and Time: 03/15/2021 10:56 am Signed by: MD JOVEL HARLAN Transcribed Date and Time: 03/15/2021 10:55 [facility] Work Phone: XR CHEST PORTABLEOrdered By: Merlene Castro on 03-15-2021 Patient [id number]iology ACCESSION EXAM DATE/TIME PROCEDURE ORDERING PROVIDER [id number] 03/15/2021 06:05 EDT CR Chest Portable [id number] -MERLENE CASTRO CPT code 18403 Reason For Exam (CR Chest Portable) s/p VATS Report PORTABLE CHEST: INDICATION: S/P VATS COMPARISON: 03/14/2021 Obtained at 0531 hours. A single portable AP radiograph of the chest was obtained. The heart is normal in size. The mediastinal silhouette is normal. There is bibasal atelectasis. A right-sided chest tube is present. There is no pleural thickening. Arthritic changes of the spine and shoulders are present. IMPRESSION: Bibasal atelectasis. No acute infiltrates. Report Dictated on --- Final --- Dictated: 03/15/2021 9:49 am Dictating Physician: DO LAZARO ALFRED Signed Date and Time: 03/15/2021 10:01 am Signed by: DO LAZARO ALFRED Transcribed Date and Time: 03/15/2021 9:49 [facility] Work Phone: [facility], [facility] Incoming Radiology Results From [facility] - 03/15/2021 10:02 AM EDT Patient Name: KENN ARSHAD Sr Diagnostic Radiology ACCESSION EXAM DATE/TIME PROCEDURE ORDERING PROVIDER [id number] 03/15/2021 06:05 EDT CR Chest Portable Juan MERLENE AGUILA CPT code 97973 Reason For Exam (CR Chest Portable) s/p VATS Report PORTABLE CHEST: INDICATION: S/P VATS COMPARISON: 03/14/2021 Obtained at 0531 hours. A single portable AP radiograph of the chest was obtained. The heart is normal in size. The mediastinal silhouette is normal. There is bibasal atelectasis. A right-sided chest tube is present. There is no pleural thickening. Arthritic changes of the spine and shoulders are present. IMPRESSION: Bibasal atelectasis. No acute infiltrates. Report Dictated on --- Final --- Dictated: 03/15/2021 9:49 am Dictating Physician: DO LAZARO ALFRED Signed Date and Time: 03/15/2021 10:01 am Signed by: DO LAZARO ALFRED Transcribed Date and Time: 03/15/2021 9:49 [facility] Work Phone: CR Chest Portableon 03-14-20 CR Chest Portable Patient Name: KENN VAUGHN Sr Diagnostic Radiology ACCESSION EXAM DATE/TIME PROCEDURE ORDERING PROVIDER [id number] 03/14/2021 05:56 EDT CR Chest Portable [id number] -MERLENE CASTRO CPT code 32346 Reason For Exam (CR Chest Portable) s/p VATS Report Examination: AP portable chest Clinical Indication: s/p VATS Comparison: 03/13/2021 Findings: Right-sided thoracostomy tube terminates at the mid to upper right lung centrally. Tiny right costophrenic angle pneumothorax. There is atelectasis within the lower lungs minimally worsened on the right from comparison. No new consolidation or effusion. Heart size is normal. Small amount of subcutaneous chest wall air slightly improved. Impression: Right-sided thoracostomy tube in unchanged position. Slightly worsening atelectasis right lower lung with tiny pneumothorax right costophrenic angle unchanged. Report Dictated on Final Dictated: 03/14/2021 7:55 am Dictating Physician: MD JONES ANTHONY J Signed Date and Time: 03/14/2021 7:57 am Signed by: MD JONES ANTHONY J Transcribed Date and Time: 03/14/2021 7:55 Normal [facility] EKG 12 leadOrdered By: Isaías Don on 03-14-2021 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 Hand: DP : 1955 Requested By: MEGHA DON Order Number: [id number] Reading : Anand Ramirez Measurements Intervals [place] Rate: 66 P: 45 IL: 158 QRS: 216 QRSD: 79 T: 165 QT: 371 QTc: 389 Interpretive Statements Sinus rhythm Normal ECG Electronically Signed On 03-14-2021 8:19:53 EDT by Anand PALACIOS Work Phone: XR CHEST PORTABLEOrdered By: Merlene Castro on 03-14-2021 Patient Name: KENN BEAR Sr Diagnostic Radiology ACCESSION EXAM DATE/TIME PROCEDURE ORDERING PROVIDER [id number] 03/14/2021 05:56 EDT CR Chest Portable [id number] MOORE CPT code 87458 Reason For Exam (CR Chest Portable) s/p VATS Report Examination: AP portable chest Clinical Indication: s/p VATS Comparison: 03/13/2021 Findings: Right-sided thoracostomy tube terminates at the mid to upper right lung centrally. Tiny right costophrenic angle pneumothorax. There is atelectasis within the lower lungs minimally worsened on the right from comparison. No new consolidation or effusion. Heart size is normal. Small amount of subcutaneous chest wall air slightly improved. Impression: Right-sided thoracostomy tube in unchanged position. Slightly worsening atelectasis right lower lung with tiny pneumothorax right costophrenic angle unchanged. Report Dictated on --- Final --- Dictated: 03/14/2021 7:55 am Dictating Physician: MD JONES ANTHONY J Signed Date and Time: 03/14/2021 7:57 am Signed by: MD JONES ANTHONY J Transcribed Date and Time: 03/14/2021 7:55 [facility] Work Phone: [facility], [facility] Incoming Radiology Results From [facility] - 03/14/2021 7:58 AM EDT Patient Name: KENN ARSHAD Sr Diagnostic Radiology ACCESSION EXAM DATE/TIME PROCEDURE ORDERING PROVIDER [id number] 03/14/2021 05:56 EDT CR Chest Portable [id number] TianaMERLENE CASTRO CPT code 73426 Reason For Exam (CR Chest Portable) s/p VATS Report Examination: AP portable chest Clinical Indication: s/p VATS Comparison: 03/13/2021 Findings: Right-sided thoracostomy tube terminates at the mid to upper right lung centrally. Tiny right costophrenic angle pneumothorax. There is atelectasis within the lower lungs minimally worsened on the right from comparison. No new consolidation or effusion. Heart size is normal. Small amount of subcutaneous chest wall air slightly improved. Impression: Right-sided thoracostomy tube in unchanged position. Slightly worsening atelectasis right lower lung with tiny pneumothorax right costophrenic angle unchanged. Report Dictated on --- Final --- Dictated: 03/14/2021 7:55 am Dictating Physician: MD JONES ANTHONY J Signed Date and Time: 03/14/2021 7:57 am Signed by: MD JONES ANTHONY J Transcribed Date and Time: 03/14/2021 7:55 [facility] Work Phone: [phone] CBCOrdered By: Merlene Castro on 03-13-2021 Hematocrit (Bld) [Volume fraction] 42.6 % 40.0 - 52.0 % [facility] Work Phone: [phone] Hemoglobin.gastrointes tinal spec 1 Ql (Stl) 14.2 g/dL 13.0 - 18.0 g/dL [facility] Work Phone: [phone] Interpretation and review of laboratory results Abnormal [facility] Work Phone: [phone] MCH (RBC) [Entitic mass] 27.7 pg 26.0 - 34.0 pg [facility] Work Phone: [phone] MCHC (RBC) [Mass/Vol] 33.4 % 32.0 - 36.0 % [facility] Work Phone: [phone] MCV (RBC) [Entitic vol] 82.8 fL 80.0 - 98.0 fL [facility] Work Phone: [phone] Platelet distribution width (Bld) [Ratio] 15.1 % High 11.5 - 14.5 % [facility] Work Phone: [phone] Platelet mean volume (Bld) [Entitic vol] 8.6 fL 7.4 - 10.4 fL [facility] Work Phone: [phone] Platelets (Bld) [#/Vol] 161 10*3/uL 140 - 440 10*3/uL [facility] Work Phone: RBC (Bld) [#/Vol] 5.14 10*6/uL 4.40 - 5.9 0 10*6/uL [facility] Work Phone: WBC (Bld) [#/Vol] 10.2 10*3/uL 3.6 - 10.7 10*3/uL [facility] Work Phone: Test Performed by [facility], [address] [place] [id number] [facility] Work Phone: CR Chest Portableon 03-13-20 21 CR Chest Portable Patient Name: KENN VAUGHN Sr Diagnostic Radiology ACCESSION EXAM DATE/TIME PROCEDURE ORDERING PROVIDER [id number] 03/13/2021 06:09 EDT CR Chest Portable [id number] -MERLENE CASTRO CPT code 79331 Reason For Exam (CR Chest Portable) s/p VATS Report Portable chest 03/13/2021: Clinical Information: Status post VATS. Findings: A single AP portable view of the chest was obtained at 537 hours. Comparison was made to the prior study prior day. . The right-sided chest tube is unchanged. There is right basal atelectasis. There is a tiny right apical pneumothorax. There is a small amount of subcutaneous emphysema in the right lateral chest wall. There is left basal atelectasis. The lung post are otherwise clear. Report Dictated on Final Dictated: 03/13/2021 8:57 am Dictating Physician: MD NORRIS RISA Signed Date and Time: 03/13/2021 8:58 am Signed by: MD NORRIS RISA Transcribed Date and Time: 03/13/2021 8:57 Normal [facility] Hemogramon 03-13-2021 Erythrocyte distribution width (RBC) [Ratio] 15.1 % High 11.5-14.5 [facility] Comment on above: Performed By: #### H CHARLOTTE IVAN #### [facility] [employer] [address] [address] Hematocrit (Bld) [Volume fraction] 42.6 % Normal 40.0-52.0 [facility] Comment on above: Performed By: #### H EMOG, TROPN #### [facility] [address] [place] [address] Hemoglobin (Bld) [Mass/Vol] 14.2 g/dL Normal 13.0-18.0 [facility] Comment on above: Performed By: #### H EMOSherie, TROPN #### [facility] [address] [place] [address] MCH (RBC) [Entitic mass] 27.7 pg Normal 26.0-34.0 [facility] Comment on above: Performed By: #### H EMOG, TROPN #### [facility] [address] [place] [address] MCHC 33.4 % Normal 32.0-36.0 [facility] Comment on above: Performed By: #### H EMOSherie, TROPN #### [facility] [address] [place], [place] MCV (RBC) [Entitic vol] 82.8 fL Normal 80.0-98.0 [facility] Comment on above: Performed By: #### H EMOSherie, TROPN #### [facility] [address] [place], [place] Platelet mean volume (Bld) [Entitic vol] 8.6 fL Normal 7.4-10.4 [facility] Comment on above: Performed By: #### H EMOG, TROPN #### [facility] [address] [place] [address] Platelets (Bld) [#/Vol] 161 10*3/uL Normal 140-440 [facility] Comment on above: Performed By: #### H EMOG, TROPN #### [facility] [address] [place] [address] RBC (Bld) [#/Vol] 5.14 10*6/uL Normal 4.40-5.90 [facility] Comment on above: Performed By: #### H EMOG, TROPN #### [facility] [address] [place] [address] WBC (Bld) [#/Vol] 10.2 10*3/uL Normal 3.6-10.7 [facility] Comment on above: Performed By: #### H CHARLOTTE IVAN #### [address] [address] XR CHEST PORTABLEOrdered By: Merlene Castro on 03-13-2021 Patient Name: KENN VAUGHN Sr Diagnostic Radiology ACCESSION EXAM DATE/TIME PROCEDURE ORDERING PROVIDER [id number] 03/13/2021 06:09 EDT CR Chest Portable [id number] MERLENE AGUILA CPT code 52876 Reason For Exam (CR Chest Portable) s/p VATS Report Portable chest 03/13/2021: Clinical Information: Status post VATS. Findings: A single AP portable view of the chest was obtained at 537 hours. Comparison was made to the prior study prior day. . The right-sided chest tube is unchanged. There is right basal atelectasis. There is a tiny right apical pneumothorax. There is a small amount of subcutaneous emphysema in the right lateral chest wall. There is left basal atelectasis. The lung post are otherwise clear. Report Dictated on --- Final --- Dictated: 03/13/2021 8:57 am Dictating Physician: MD NORRIS RISA Signed Date and Time: 03/13/2021 8:58 am Signed by: MD NORRIS RISA Transcribed Date and Time: 03/13/2021 8:57 [facility] Work Phone: [facility], [facility] Incoming Radiology Results From [facility] - 03/13/2021 8:59 AM EDT Patient Name: KENN ARSHAD Sr Diagnostic Radiology ACCESSION EXAM DATE/TIME PROCEDURE ORDERING PROVIDER [id number] 03/13/2021 06:09 EDT CR Chest Portable [id number] MERLENE AGUILA CPT code 51490 Reason For Exam (CR Chest Portable) s/p VATS Report Portable chest 03/13/2021: Clinical Information: Status post VATS. Findings: A single AP portable view of the chest was obtained at 537 hours. Comparison was made to the prior study prior day. . The right-sided chest tube is unchanged. There is right basal atelectasis. There is a tiny right apical pneumothorax. There is a small amount of subcutaneous emphysema in the right lateral chest wall. There is left basal atelectasis. The lung post are otherwise clear. Report Dictated on --- Final --- Dictated: 03/13/2021 8:57 am Dictating Physician: MD NORRIS RISA Signed Date and Time: 03/13/2021 8:58 am Signed by: MD NORRIS RISA Transcribed Date and Time: 03/13/2021 8:57 [facility] Work Phone: [phone] CBCOrdered By: Anaid lam 03-12-2021 Hematocrit (Bld) [Volume fraction] 40.9 % 40.0 - 52.0 % [facility] Work Phone: [phone] Hemoglobin.gastrointes tinal spec 1 Ql (Stl) 14.0 g/dL 13.0 - 18.0 g/dL [facility] Work Phone: [phone] Interpretation and review of laboratory results Abnormal [facility] Work Phone: 1 MCH (RBC) [Entitic mass] 28.2 pg 26.0 - 34.0 pg [facility] Work Phone: 1 MCHC (RBC) [Mass/Vol] 34.2 % 32.0 - 36.0 % [facility] Work Phone: 1 MCV (RBC) [Entitic vol] 82.3 fL 80.0 - 98.0 fL [facility] Work Phone: 1 Platelet distribution width (Bld) [Ratio] 15.2 % High 11.5 - 14.5 % [facility] Work Phone: 1 Platelet mean volume (Bld) [Entitic vol] 8.3 fL 7.4 - 10.4 fL [facility] Work Phone: [phone] Platelets (Bld) [#/Vol] 154 10*3/uL 140 - 440 10*3/uL [facility] Work Phone: [phone] RBC (Bld) [#/Vol] 4.97 10*6/uL 4.40 - 5.9 0 10*6/uL [facility] Work Phone: WBC (Bld) [#/Vol] 6.4 10*3/uL 3.6 - 10.7 10*3/uL [facility] Work Phone: Test Performed by [facility], [address] [place] [address] [facility] Work Phone: CR Chest Portableon 03-12-20 21 CR Chest Portable Patient Name: KENN VAUGHN Sr Diagnostic Radiology ACCESSION EXAM DATE/TIME PROCEDURE ORDERING PROVIDER [id number] 03/12/2021 20:12 EDT CR Chest Portable [id number] MOORE CPT code 73249 Reason For Exam (CR Chest Portable) s/p VATS Report PORTABLE CHEST: INDICATION: Postop COMPARISON: Compared to a prior study performed earlier today at 1147 hours Obtained at 1908 hours. A single portable AP radiograph of the chest was obtained with the patient moderately rotated. The heart is normal in size. The mediastinal silhouette is normal. There is bibasal atelectasis. A right-sided chest tube is present. A moderate amount of subcutaneous air is noted on the right. There is no effusion. There is no pleural thickening. Arthritic changes of the spine and shoulders are present. IMPRESSION: Postoperative changes on the right. No acute process. Report Dictated on Final Dictated: 03/12/2021 9:02 pm Dictating Physician: DO LAZARO ALFRED Signed Date and Time: 03/12/2021 9:04 pm Signed by: DO LAZARO ALFRED Transcribed Date and Time: 03/12/2021 9:02 Normal [facility] CR Chest Portable Patient Name: EKNN VAUGHN Sr Diagnostic Radiology ACCESSION EXAM DATE/TIME PROCEDURE ORDERING PROVIDER [id number] 03/12/2021 12:02 EDT CR Chest Portable ARASH DON ANDREW G CPT code 67286 Reason For Exam (CR Chest Portable) preoperative evaluation Report PORTABLE CHEST (Frontal View) History: Lung mass, preop Comparison: 02/20/2021 Findings: Frontal portable chest view shows right hilar enlargement with right lower lobe mass overlying the right infrahilar region suggesting malignancy, similar to 02/20/2021 chest x-ray but better demonstrated on 01/28/[address] which also showed nodular density suggesting metastasis. Ill-defined nodular densities are probably present at the right lung base. Otherwise, there are no acute lung infiltrate or congestion. The heart is normal in size. There is no pleural effusion. Continued evaluation recommended. Report Dictated on Final Dictated: 03/12/2021 3:06 pm Dictating Physician: MD RUTHERFORD AHMAD Signed Date and Time: 03/12/2021 3:15 pm Signed by: MD RUTHERFORD AHMAD Transcribed Date and Time: 03/12/2021 3:06 Normal [facility] Comp Metabolic Panelon 03-12 Calcium [Mass/Vol] 9.4 mg/dL Normal 8.4-10.4 [facility] Comment on above: Performed By: #### T ROPN, MG3, HA1C2, HEMOG, CMP3M, LIPD2 #### [facility] [address] [place] [address] ALP [Catalytic activity/Vol] 56 U/L Normal 38-126 [facility] Comment on above: Performed By: #### T ROPN, MG3, HA1C2, HEMOG, CMP3M, LIPD2 #### [facility] [address] [place] [address] eGFR OTHER > 90.0 Normal >60 [facility] Comment on above: Result Comment: KDIG O guidelines provide the following GFR categories: Stage GFR(ml/min/1.73 m2) Terms G1 >=90 Normal or high G2 60-89 Mildly decreased* G3a 45-59 Mildly to moderately decreased G3b 30-44 Moderately to severely decreased G4 15-29 Severely decreased G5 <15 Kidney failure *Relative to young adult level. In the absence of evidence of kidney damage, neither GFR category G1 nor G2 fulfill the criteria for CKD. The CKD-EPI equation is validated in individuals 18 years of age and older. Currently the best equation for estimating glomerular filtration rate (GFR) from serum creatinine in children is the Bedside Almodovar equation. It is less accurate in patients with extremes of muscle mass, restriction of dietary protein, ingestion of creatine, extra-renal metabolism of creatinine, or treatment with medications that affect renal tubular creatinine secretion. Performed By: #### T ROPN, MG3, HA1C2, HEMOG, CMP3M, LIPD2 #### [place] [address] [place] [address] Protein [Mass/Vol] 7.0 g/dL Normal 6.3-8.2 [facility] Comment on above: Performed By: #### T ROPN, MG3, HA1C2, HEMOG, CMP3M, LIPD2 #### [address] [place] [place], [place] Urea nitrogen [Mass/Vol] 18 mg/dL Normal 7-20 [facility] Comment on above: Performed By: #### T ROPN, MG3, HA1C2, HEMOG, CMP3M, LIPD2 #### [address] [place], [place] Potassium [Moles/Vol] 4.1 mmol/L Normal 3.5-5.1 [facility] Comment on above: Performed By: #### T ROPN, MG3, HA1C2, HEMOG, CMP3M, LIPD2 #### [address] [place], [place] Albumin [Mass/Vol] 4.2 g/dL Normal 3.5-5.0 [facility] Comment on above: Performed By: #### T ROPN, MG3, HA1C2, HEMOG, CMP3M, LIPD2 #### [address] [place] [address] [place], [place] Chloride [Moles/Vol] 107 mmol/L Normal 98-107 [facility] Comment on above: Performed By: #### T ROPN, MG3, HA1C2, HEMOG, CMP3M, LIPD2 #### [address] [place] [address] [place], [place] Sodium [Moles/Vol] 138 mmol/L Normal 135-145 [facility] Comment on above: Performed By: #### T ROPN, MG3, HA1C2, HEMOG, CMP3M, LIPD2 #### [facility] [facility] [address] [place], [place] Comp Metabolic PanelOrdered By: Anaid Zee on 03-12-2021 ALT [Catalytic activity/Vol] 16 U/L Normal 0-49 [facility] Work Phone: Comment on above: The ALT test is perf ormed by an updated assay method. Please note that the reference intervals have been changed and are now sex specific. Result Comment: The ALT test is performed by an updated assay method. Please note that the reference intervals have been changed and are now sex specific. Performed By: #### T ROPN, MG3, HA1C2, HEMOG, CMP3M, LIPD2 #### [employer] [address] [place], [place] Anion gap [Moles/Vol] 6 mmol/L Normal 3-[address] [facility] Work Phone: Comment on above: Performed By: #### T ROPN, MG3, HA1C2, HEMOG, CMP3M, LIPD2 #### [employer] [address] [address] [place], [place] AST [Catalytic activity/Vol] 26 U/L Normal 15-46 [facility] Work Phone: Comment on above: Performed By: #### T ROPN, MG3, HA1C2, HEMOG, CMP3M, LIPD2 #### [employer] [address] [address] [place], [place] Bilirubin [Mass/Vol] 0.5 mg/dL Normal 0.2-1.3 [facility] Work Phone: Comment on above: Performed By: #### T ROPN, MG3, HA1C2, HEMOG, CMP3M, LIPD2 #### [employer] [address] [address] [place], [place] CO2 [Moles/Vol] 24 mmol/L Normal 22-30 [facility] Work Phone: Comment on above: Performed By: #### T ROPN, MG3, HA1C2, HEMOG, CMP3M, LIPD2 #### [employer] [facility] [address] [place], [place] Creatinine [Mass/Vol] 0.78 mg/dL Normal 0.52-1.25 [facility] Work Phone: [phone] Comment on above: Performed By: #### T ROPN, MG3, HA1C2, HEMOG, CMP3M, LIPD2 #### [employer] [address] [place], [place] GFR/1.73 sq M.predicted among blacks MDRD (S/P/Bld) [Vol rate/Area] mL/min/{1.73_m2} Normal >60 [facility] Work Phone: [phone] Comment on above: Performed By: #### T ROPN, MG3, HA1C2, HEMOG, CMP3M, LIPD2 #### [employer] [facility] [place], [place] Glucose [Mass/Vol] 101 mg/dL High 70-100 [facility] Work Phone: [phone] Comment on above: Performed By: #### T ROPN, MG3, HA1C2, HEMOG, CMP3M, LIPD2 #### [employer] [facility] [place], [place] Comprehensive Metabolic Pane lOrdered By: Anaid Zee on 03-12-2021 Albumin [Mass/Vol] 4.2 g/dL 3.5 - 5.0 g/dL [facility] Work Phone: [phone] ALP (Bld) [Catalytic activity/Vol] 56 U/L 38 - 126 U/L [facility] Work Phone: [phone] [Mass/Vol] 9.4 mg/dL 8.4 - 10. 4 mg/dL [facility] Work Phone: [phone] Chloride [Moles/Vol] 107 mmol/L 98 - 10 7 mmol/L [facility] Work Phone: [phone] IF NonAfrican [place] >90.0 >60 mL/min [facility] Work Phone: [phone] Comment on above: KDIGO guidelines pro vide the following GFR categories: Stage GFR(ml/min/1.73 m2) Terms G1 >=90 Normal or high G2 60-89 Mildly decreased* G3a 45-59 Mildly to moderately decreased G3b 30-44 Moderately to severely decreased G4 15-29 Severely decreased G5 <15 Kidney failure *Relative to young adult level. In the absence of evidence of kidney damage, neither GFR category G1 nor G2 fulfill the criteria for CKD. The CKD-EPI equation is validated in individuals 18 years of age and older. Currently the best equation for estimating glomerular filtration rate (GFR) from serum creatinine in children is the Bedside Almodovar equation. It is less accurate in patients with extremes of muscle mass, restriction of dietary protein, ingestion of creatine, extra-renal metabolism of creatinine, or treatment with medications that affect renal tubular creatinine secretion. Free PSA/Total PSA [Mass fraction] 7.0 g/dL 6.3 - 8.2 g/dL [facility] Work Phone: Interpretation and review of laboratory results Abnormal [facility] Work Phone: Potassium [Moles/Vol] 4.1 mmol/L 3.5 - 5.1 mmol/L [facility] Work Phone: Sodium [Moles/Vol] 138 mmol/L 135 - 145 mmol/L [facility] Work Phone: Urea nitrogen (BldV) [Mass/Vol] 18 mg/dL 7 - 20 mg/dL [facility] Work Phone: Test Performed by [facility], [address] [place] [address] [facility] Work Phone: Hemogramon 03-12-2021 Erythrocyte distribution width (RBC) [Ratio] 15.2 % High 11.5-14.5 [facility] Comment on above: Performed By: #### T ROPN, MG3, HA1C2, HEMOG, CMP3M, LIPD2 #### [facility] [employer] [address] [place] [phone] Hematocrit (Bld) [Volume fraction] 40.9 % Normal 40.0-52.0 [facility] Comment on above: Performed By: #### T ROPN, MG3, HA1C2, HEMOG, CMP3M, LIPD2 #### [facility] [address] [place], [place] Hemoglobin (Bld) [Mass/Vol] 14.0 g/dL Normal 13.0-18.0 [facility] Comment on above: Performed By: #### T ROPN, MG3, HA1C2, HEMOG, CMP3M, LIPD2 #### [place] [address] [address] [place], [place] MCH (RBC) [Entitic mass] 28.2 pg Normal 26.0-34.0 [facility] Comment on above: Performed By: #### T ROPN, MG3, HA1C2, HEMOG, CMP3M, LIPD2 #### [place] [address] [address] [place], [place] MCHC 34.2 % Normal 32.0-36.0 [facility] Comment on above: Performed By: #### T ROPN, MG3, HA1C2, HEMOG, CMP3M, LIPD2 #### [place] [address] [address] [place], [place] MCV (RBC) [Entitic vol] 82.3 fL Normal 80.0-98.0 [facility] Comment on above: Performed By: #### T ROPN, MG3, HA1C2, HEMOG, CMP3M, LIPD2 #### [place] [address] [place], [place] Platelet mean volume (Bld) [Entitic vol] 8.3 fL Normal 7.4-10.4 [facility] Comment on above: Performed By: #### T ROPN, MG3, HA1C2, HEMOG, CMP3M, LIPD2 #### [place] [address] [place], [place] Platelets (Bld) [#/Vol] 154 10*3/uL Normal 140-440 [facility] Comment on above: Performed By: #### T ROPN, MG3, HA1C2, HEMOG, CMP3M, LIPD2 #### [place] [address] [address] [place], [place] RBC (Bld) [#/Vol] 4.97 10*6/uL Normal 4.40-5.90 [facility] Comment on above: Performed By: #### T ROPN, MG3, HA1C2, HEMOG, CMP3M, LIPD2 #### [facility] [address] [place] [address] WBC (Bld) [#/Vol] 6.4 10*3/uL Normal 3.6-10.7 [facility] Comment on above: Performed By: #### T ROPN, MG3, HA1C2, HEMOG, CMP3M, LIPD2 #### [facility] [address] [place] [address] Op Noteon 03-12-2021 Op Note PATIENT: Charli ARSHAD ADMISSION DATE: 03/12/2021 SURGERY DATE: 03/12/2021 DATE OF : 1955 AGE: 65 ADMITTING PHYSICIAN: Anaid Zee MD ATTENDING PHYSICIAN: Anaid Zee MD DICTATING PHYSICIAN: Anaid Zee MD OPERATIVE RECORD Procedures: 1. RIGHT VIDEO-ASSISTED THORACOSCOPY. 2. CONVERSION TO RIGHT MUSCLE SPARING THORACOTOMY. 3. RIGHT LOWER LOBECTOMY. 4. RIGHT UPPER LOBE WEDGE. 5. RIGHT MIDDLE LOBE WEDGE. 6. MEDIASTINAL LYMPH NODE DISSECTION. Preoperative Diagnoses: 1. Right lower lobe adenocarcinoma. 2. Hilar lymphadenopathy. Postoperative Diagnoses: 1. Right lower lobe adenocarcinoma. 2. Right hilar lymphadenopathy. Anesthesia: General. Linderman Operator: Johanna Pyle. Estimated Blood Loss: 100 cc. Complications: None. Specimens: Multiple specimens were obtained throughout the procedure. Findings: Large right lower lobe mass with multistage hilar lymphadenopathy. Description of Procedure: The patient was brought to the operating room, placed supine on the operating table. General endotracheal anesthesia was achieved with a double-lumen tube. A Horton catheter was inserted. The patient was then positioned with the right side up. A block was performed by the anesthesia team. The patient was then prepped and draped in the usual sterile fashion. A time-out was performed. A 1 cm incision was made in the seventh intercostal space. The camera was inserted into the thoracic cavity. There were multiple plaque-like nodules on the lung. A working site incision was made in about the fifth intercostal space in the anterior axillary line. Using that incision, a small nodule was palpated on the right upper lobe. This was resected using blue load staplers and sent for frozen. There were no nodules palpated on the right middle lobe, but there were visible whitish discolorations of the right middle lobe. A subset of these were then resected using blue load stapler as a wedge and sent to pathology. The pathology returned on both of these as benign fibrosis. We continued the operation by then performing a muscle sparing thoracotomy in about the fifth intercostal Space. The inferior pulmonary ligament was taken down. Lymph nodes in this area were sampled and sent off to pathology. The dissection proceeded to isolate the right inferior pulmonary vein. After isolation, there were obvious lymph nodes around the right lower lobe hilum that were enlarged and concerning for malignancy. With careful dissection, the nodes were removed in the entirety with the specimen. As the nodes were removed, this allowed us to identify the hilar structures going to the right lower lobe. With sequential dissection and division using staple loads, we divided the right superior segment pulmonary artery, the right basilar segments pulmonary arteries, and the right inferior pulmonary vein. We then isolated the right lower lobe bronchus. A blue load stapler was placed across the bronchus and clamped down. The right lung was insufflated and the right upper and middle lobes were noted to insufflate without the right lower lobe insufflating. The right lower lobe bronchus was then divided. The fissure between the right upper and right lower lobe was then divided sequentially using blue load staplers. The specimen was then removed from the thoracic cavity and passed off the pathology. Of note, a frozen section of the bronchial margin was negative. Level 7 lymph nodes were then dissected in their entirety and sent off to pathology. Then, a dissection was performed in the right paratracheal space, sending off the entirety of the lymph nodes to pathology. An under water air leak test was performed, which revealed no air leak in staple margins and from the bronchial staple line. We sprayed some Progel at the staple line of the fissure. A chest tube was placed through the previous camera port site and this was secured. The retractors were removed and pericostal stitches were placed to secure the ribs. The lung was re-insufflated and the pericostal stitches tied down. The serratus muscle, which was divided along its fibers, was reapproximated. The latissimus was npt or divided. The subcutaneous tissue was closed with 2-0 stitches. The skin was closed with 4-0 Monocryl. The patient tolerated the procedure well. He was extubated and taken to the PACU for recovery. Diskriter Job ID: [id number] Anaid Zee MD DOD:03/12/2021 04:52 P NNA/hectork DOT:03/12/2021 06:28 P Job Number: [id number] Document Number: [id number] cc: Anaid Zee MD [facility] [address] [place] [address] Surgical Pathologyon 021 Surgical Pathology [id number] [facility]PART[facility] PATHOLOGY AND LABORATORY MEDICINE [address] [place] [address] FINAL SURGICAL PATHOLOGY REPORT NAME: KENN ARSHAD N [id number] : 1955 65 Y M [facility] NO.: [id number] LOCATION: [address] [place] [address] 08 PROCEDURE 03/12/2021 DATE: SURGEON: ANAID ZEE MD RECEIVED 03/13/2021 DATE: ATTENDING: ANAID ZEE MD REPORT DATE: 03/19/2021 COPIES TO: DIAGNOSIS: A. LUNG, RIGHT UPPER LOBE, WEDGE RESECTION - NEGATIVE FOR MALIGNANCY FOCAL PLEURAL FIBROSIS AND UNDERLYING ALVEOLAR SEPTAL FIBROSIS PRESENT B. LUNG, RIGHT MIDDLE LOBE, WEDGE RESECTION - NEGATIVE FOR MALIGNANCY FOCAL PLEURAL FIBROSIS WITH CHRONIC INFLAMMATION, UNDERLYING ALVEOLAR SEPTAL FIBROSIS, AND EMPHYSEMATOUS CHANGES PRESENT C. LYMPH NODE, RIGHT PULMONARY LIGAMENT, EXCISION - ONE LYMPH NODE NEGATIVE FOR METASTATIC CARCINOMA (0/1) D. LYMPH NODE, 11R RIGHT MIDDLE, EXCISION - ONE LYMPH NODE NEGATIVE FOR METASTATIC CARCINOMA (0/1) E. LUNG, RIGHT LOWER LOBE, LOBECTOMY - MULTIFOCAL ADENOCARCINOMA, SOLID TYPE (GRADE 3) MULTIPLE METASTATIC NODULES OF CLEAR CELL RENAL CELL CARCINOMA ONE OF FIVE PERIBRONCHIAL LYMPH NODES POSITIVE FOR METASTATIC CARCINOMA (1/5) Comment: The second smaller adenocarcinoma mass measures 1.0 x 0.8 x 0.8 cm and is separate from the larger mass. Multiple sections of the larger tumor are stained with an elastic stain and show no evidence of pleural invasion. The primary lung tumor stains positive for TTF1 and is negative for p40, consistent with a primary adenocarcinoma. The metastatic nodules stain positive with PAX8 and are negative for TTF1 and p40, consistent with clear cell renal cell carcinoma. Stains for ERG and D2-40 highlight foci of renal cell carcinoma within lymphovascular spaces. Neither adenocarcinoma nor metastatic renal cell carcinoma are present at the bronchial/vascular margins. F. LYMPH NODE, 11R ANTERIOR, EXCISION - ONE LYMPH NODE POSITIVE FOR METASTATIC CARCINOMA (1/1) G. LYMPH NODE, 11R POSTERIOR, EXCISION - ONE LYMPH NODE NEGATIVE FOR METASTATIC CARCINOMA (0/1) H. LYMPH NODE, LEVEL 7, EXCISION - ONE LYMPH NODE NEGATIVE FOR METASTATIC CARCINOMA (0/1) I. LYMPH NODE, LEVEL 7, EXCISION - ONE LYMPH NODE NEGATIVE FOR METASTATIC CARCINOMA (0/1) J. LYMPH NODE, LEVEL 4R LOWER PARATRACHEAL, EXCISION - ONE LYMPH NODE NEGATIVE FOR METASTATIC CARCINOMA (0/1) K. LYMPH NODE, RIGHT UPPER PARATRACHEAL, EXCISION - ONE LYMPH NODE NEGATIVE FOR METASTATIC CARCINOMA (0/1) SPECIMEN Procedure: Lobectomy Specimen Laterality: Right TUMOR Tumor Site: Lower lobe of lung Histologic Type: Invasive adenocarcinoma, solid predominant Other Subtypes Present: Acinar Histologic Grade: G3: Poorly differentiated Spread Through Air Spaces (ANGELA): Not identified Total Tumor Size (size of entire tumor): Greatest Dimension (Centimeters) - 6 x 4.5 x 5.5 cm Size of Invasive Component: Greatest Dimension (Centimeters) - 6 cm Tumor Focality: Separate tumor nodules (metastases) in same lobe (pT3) Number of Intrapulmonary Metastases Identified: 1 Visceral Pleura Invasion: Not identified Direct Invasion of Adjacent Structures: No adjacent structures present Treatment Effect: No known presurgical therapy Lymphovascular Invasion: Not identified (for primary lung adenocarcinoma) MARGINS Margins: All margins are uninvolved by tumor Margins Examined: Bronchial, Vascular Distance of Invasive Carcinoma from Closest Margin (Centimeters): 3.5 cm Closest Margin: Bronchial, Vascular LYMPH NODES Number of Lymph Nodes Involved: 2 Ramon Stations Involved: 11R: Interlobar, 12R: Lobar Number of Lymph Nodes Examined: 13 Ramon Stations Examined: 2R: Upper paratracheal, 4R: Lower paratracheal, 9R: Pulmonary ligament, 11R: Interlobar, 12R: Lobar, 7: Subcarinal PATHOLOGIC STAGE CLASSIFICATION (pTNM, AJCC 8th Edition) Note: Reporting of pT, pN, and (when applicable) pM categories is based on information available to the pathologist at the time the report is issued. As per the AJCC (Chapter 1, 8th Ed.) it is the managing physician's responsibility to establish the final pathologic stage based upon all pertinent information, including but potentially not limited to this pathology report. TNM Descriptors: m (multiple primary tumors) Primary Tumor (pT): pT3 Regional Lymph Nodes (pN): pN1 ADDITIONAL FINDINGS Additional Findings: Emphysema Comment(s): Many of the lymph nodes show prominent sinus histiocytosis. MARINE DIVER TUMOR BLOCK(S): E7, E11(adenocarcinoma) Results discussed with Dr. Zee on 03/19/21. CRH/CRH Signature> VAISHALI FRY M.D. CLIN (more content not included)... Normal [facility] TS GELon 03-12-2021 TS GEL ABO Group: A Rh, Gel: POS Antibody Screen Gel: NEG Normal [facility] Comment on above: Performed By: #### T ROPN, MG3, HA1C2, HEMOG, CMP3M, LIPD2 #### [facility] [address] [place] [address] TYPE AND SCREENOrdered By: Arnol Zee on 03-12-2021 ABO Grouping A [facility] Work Phone: Rh Type Positive [facility] Work Phone: Test Performed by [facility], [address] [place] [id number] [facility] Work Phone: XR CHEST PORTABLEOrdered By: Merlene Castro on 03-12-2021 Patient Name: KENN VAUGHN Sr Diagnostic Radiology ACCESSION EXAM DATE/TIME PROCEDURE ORDERING PROVIDER [id number] 03/12/2021 20:12 EDT CR Chest Portable [id number] -MERLENE CASTRO CPT code 63600 Reason For Exam (CR Chest Portable) s/p VATS Report PORTABLE CHEST: INDICATION: Postop COMPARISON: Compared to a prior study performed earlier today at 1147 hours Obtained at 1908 hours. A single portable AP radiograph of the chest was obtained with the patient moderately rotated. The heart is normal in size. The mediastinal silhouette is normal. There is bibasal atelectasis. A right-sided chest tube is present. A moderate amount of subcutaneous air is noted on the right. There is no effusion. There is no pleural thickening. Arthritic changes of the spine and shoulders are present. IMPRESSION: Postoperative changes on the right. No acute process. Report Dictated on --- Final --- Dictated: 03/12/2021 9:02 pm Dictating Physician: DO LAZARO ALFRED Signed Date and Time: 03/12/2021 9:04 pm Signed by: DO LAZARO ALFRED Transcribed Date and Time: 03/12/2021 9:02 [facility] Work Phone: Ronnie, [facility] Incoming Radiology Results From [facility] - 03/12/2021 9:05 PM EDT Patient Name: KENN ARSHAD Sr Diagnostic Radiology ACCESSION EXAM DATE/TIME PROCEDURE ORDERING PROVIDER [id number] 03/12/2021 20:12 EDT CR Chest Portable [id number] -MERLENE CASTRO CPT code 40052 Reason For Exam (CR Chest Portable) s/p VATS Report PORTABLE CHEST: INDICATION: Postop COMPARISON: Compared to a prior study performed earlier today at 1147 hours Obtained at 1908 hours. A single portable AP radiograph of the chest was obtained with the patient moderately rotated. The heart is normal in size. The mediastinal silhouette is normal. There is bibasal atelectasis. A right-sided chest tube is present. A moderate amount of subcutaneous air is noted on the right. There is no effusion. There is no pleural thickening. Arthritic changes of the spine and shoulders are present. IMPRESSION: Postoperative changes on the right. No acute process. Report Dictated on --- Final --- Dictated: 03/12/2021 9:02 pm Dictating Physician: DO LAZARO ALFRED Signed Date and Time: 03/12/2021 9:04 pm Signed by: DO LAZARO ALFRED Transcribed Date and Time: 03/12/2021 9:02 [facility] Work Phone: XR CHEST PORTABLEOrdered By: Megha Don on 03-12-2021 [id number]iology ACCESSION EXAM DATE/TIME PROCEDURE ORDERING PROVIDER [id number] 03/12/2021 12:02 EDT CR Chest Portable ARASH DON ANDREW G CPT code 87031 Reason For Exam (CR Chest Portable) preoperative evaluation Report PORTABLE CHEST (Frontal View) History: Lung mass, preop Comparison: 02/20/2021 Findings: Frontal portable chest view shows right hilar enlargement with right lower lobe mass overlying the right infrahilar region suggesting malignancy, similar to 02/20/2021 chest x-ray but better demonstrated on 01/28/[address] which also showed nodular density suggesting metastasis. Ill-defined nodular densities are probably present at the right lung base. Otherwise, there are no acute lung infiltrate or congestion. The heart is normal in size. There is no pleural effusion. Continued evaluation recommended. Report Dictated on --- Final --- Dictated: 03/12/2021 3:06 pm Dictating Physician: MD RUTHERFORD AHMAD Signed Date and Time: 03/12/2021 3:15 pm Signed by: MD RUTHERFORD AHMAD Transcribed Date and Time: 03/12/2021 3:06 [facility] Work Phone: Ronnie, [facility] Incoming Radiology Results From [facility] - 03/12/2021 3:16 PM EDT Patient Name: KENN ARSHAD Sr Diagnostic Radiology ACCESSION EXAM DATE/TIME PROCEDURE ORDERING PROVIDER [id number] 03/12/2021 12:02 EDT CR Chest Portable ARASH DON, MEGHA Carter CPT code 99907 Reason For Exam (CR Chest Portable) preoperative evaluation Report PORTABLE CHEST (Frontal View) History: Lung mass, preop Comparison: 02/20/2021 Findings: Frontal portable chest view shows right hilar enlargement with right lower lobe mass overlying the right infrahilar region suggesting malignancy, similar to 02/20/2021 chest x-ray but better demonstrated on 01/28/[address] which also showed nodular density suggesting metastasis. Ill-defined nodular densities are probably present at the right lung base. Otherwise, there are no acute lung infiltrate or congestion. The heart is normal in size. There is no pleural effusion. Continued evaluation recommended. Report Dictated on --- Final --- Dictated: 03/12/2021 3:06 pm Dictating Physician: MD RUTHERFORD AHMAD Signed Date and Time: 03/12/2021 3:15 pm Signed by: MD RUTHERFORD AHMAD Transcribed Date and Time: 03/12/2021 3:06 [facility] Work Phone: MRI Brain w/ + w/o Contrasto n 03-08-2021 MRI Brain w/ + w/o Contrast Patient Name: KENN ARSHAD Sr Magnetic Resonance Imaging ACCESSION EXAM DATE/TIME PROCEDURE ORDERING PROVIDER [id number] 03/08/2021 13:11 EDT MRI Brain w/ + w/o MD KRISTIN, JOSE MIGUEL Contrast CPT code 29223 Reason For Exam (MRI Brain w/ + w/o Contrast) Malignant neoplasm of lower lobe, right bronchus or lung Report Examination: MRI brain with and without contrast Clinical Indication: Malignant neoplasm of lower lobe, right bronchus or lung Comparison: None Findings: Multiplanar multisequence MRI was obtained through the skull prior to and after administration of 8 mL Gadavist intravenous gadolinium contrast. Sequences included diffusion-weighted, gradient and FLAIR images. Ventricles are normal in size and configuration and are normally positioned on midline. There is mild diffuse cerebral volume loss. Basilar cisterns are patent. There is mild periventricular and subcortical white matter nonspecific T2 and FLAIR signal hyperintensity. No intracranial fluid collection. No visualized mass. No evidence of intracranial hemorrhage. Review of the diffusion-weighted images demonstrate no evidence of acute infarct. Empty sella anatomic variant with inferior displacement and flattening of the pituitary glands. No gross abnormality is appreciated within the globes and orbital contents. There is [id number] paranasal sinusitis with several fluid-filled ethmoid air cells, right sphenoid and left maxillary with left maxillary air-fluid level. Post gadolinium contrast-enhanced images demonstrate no evidence of abnormal enhancement. Impression: 1. No abnormal intracranial enhancement to suggest intracranial metastasis. 2. Minimal age-related cerebral volume loss and white matter changes likely minimal chronic small vessel ischemic disease in a person this age. 3. Moderate paranasal sinusitis most pronounced within the ethmoid and left maxillary. Magnetic Resonance Imaging Report Report Dictated on Workstation: [id number] Final Dictating Physician: MD JONES ANTHONY J Signed Date and Time: 03/08/2021 3:27 pm Signed by: MD JONES ANTHONY J Transcribed Date and Time: 03/08/2021 3:28 Normal [facility] CR Chest Portableon 02-21-20 CR Chest Portable Patient Name: KENN VAUGHN Sr [facility]#: [id number] Diagnostic Radiology ACCESSION EXAM DATE/TIME PROCEDURE ORDERING PROVIDER [id number] 02/20/2021 13:44 EDT CR Chest Portable MD KRISTIN, JOSE MIGUEL CPT code 45971 Reason For Exam (CR Chest Portable) post right lung biopsy Report PORTABLE CHEST X-RAY CLINICAL INDICATION: Status post right lung biopsy A portable frontal view of the chest was obtained. COMPARISON: PET/CT dated 02/14/2021 FINDINGS: The heart size is within normal limits. No new mass posterior to the right hilum on the PET/CT is similar to prior chest x-rays. There is no evidence of pneumothorax following biopsy. The lungs are otherwise clear. There is no pleural effusion. Bony structures are unremarkable. IMPRESSION: Right infrahilar soft tissue prominence corresponds to the known mass seen on prior examinations. No evidence of pneumothorax following biopsy. Report Dictated on Final Dictated: 02/20/2021 2:10 pm Dictating Physician: MD MAY JONATHAN R Signed Date and Time: 02/20/2021 2:14 pm Signed by: MD MAY JONATHAN R Transcribed Date and Time: 02/20/2021 2:10 Normal [facility] Medical Cytologyon 1 Medical Cytology [facility] [id number] DEPARTMENT OF PATHOLOGY AND [facility], [facility]. LABORATORY MEDICINE [address] [place] [id number] FINAL MEDICAL CYTOLOGY REPORT NAME: KENN ARSHAD : 1955 65 Y M BILLING NO.: [id number] LOCATION: [facility] PAC OUT 1PAC PROCEDURE 02/20/2021 04 DATE: PHYSICIAN: JOSE MIGUEL FOSTER MD RECEIVED DATE: 02/20/2021 ATTENDING: JOSE MIGUEL FOSTER MD REPORT DATE: 02/24/2021 COPIES TO: CLINICAL DATA: Lung mass DIAGNOSIS: A: TRANSBRONCHIAL NEEDLE ASPIRATION, RIGHT LOWER LOBE: POSITIVE FOR MALIGNANT CELLS. NONSMALL CELL CARCINOMA. The prepared cell block consists mainly of peripheral blood elements with only extremely rare atypical cells present. B: TRANSBRONCHIAL NEEDLE ASPIRATION, 11L LYMPH NODE: NO MALIGNANT CELLS IDENTIFIED. Adequate lymph node sample. C: TRANSBRONCHIAL NEEDLE ASPIRATION, STATION 7 LYMPH NODE: NO MALIGNANT CELLS IDENTIFIED. Adequate lymph node sample. D: TRANSBRONCHIAL NEEDLE ASPIRATION, 4R LYMPH NODE: NO MALIGNANT CELLS IDENTIFIED. Adequate lymph node sample. E: TRANSBRONCHIAL NEEDLE ASPIRATION, 11R LYMPH NODE: POSITIVE FOR MALIGNANT CELLS. NONSMALL CELL CARCINOMA. There is scant cellular material present in the prepared cell block. F: BRONCHOALVEOLAR LAVAGE, RIGHT LOWER LOBE: NO MALIGNANT CELLS IDENTIFIED. NO SIGNIFICANT MICROORGANISMS OR VIRAL CELLULAR CHANGES IDENTIFIED. Suboptimal specimen containing few alveolar macrophages (< 10/high power field), excessive respiratory epithelial contaminants, obscuring mucopurulent exudate or excessive degenerative cell changes. Please see patient's concurrent transbronchial biopsy ([id number]) for additional information. Comment: ADDITIONAL SURGICAL CASES EXIST FOR THIS SAME DATE OF SERVICE Rapid Evaluation: Part A: Pass 1 - Adequate. Additional passes into CytoLyt. Part B: Pass 1 - Lymphocytes present. Part C: Pass 1 & 2 - Lymphocytes present. Part D: Pass 1 - Lymphocytes present. Part E: Pass 1 - Adequate. Additional passes into CytoLyt. Onsite interpretation by Dr. Fry. SPECIMEN: FINE NEEDLE ASPIRATION-TRANSBRONCHIAL , RLL (PART A) PROCEDURE(S): TRANSBRONCHIAL NEEDLE ASPIRATION GROSS DESCRIPTION: 25 ml, bloody fluid, w/cytolyt. Materials Prepared & Examined: Cell Blocks . . . . . . . . . . . . 1 Smear Slides . . . . . . . . . . . 2 SPECIMEN: FINE NEEDLE ASPIRATION-TRANSBRONCHIAL , 11L (PART B) PROCEDURE(S): TRANSBRONCHIAL NEEDLE ASPIRATION GROSS DESCRIPTION: 15 ml, [place] fluid, w/cytolyt. Materials Prepared & Examined: Cell Blocks . . . . . . . . . . . . 1 Smear Slides . . . . . . . . . . . 2 SPECIMEN: FINE NEEDLE ASPIRATION-TRANSBRONCHIAL , STATION 7 (PART C) PROCEDURE(S): TRANSBRONCHIAL NEEDLE ASPIRATION GROSS DESCRIPTION: 15 ml, [place] fluid, w/cytolyt. Materials Prepared & Examined: Cell Blocks . . . . . . . . . . . . 1 Smear Slides . . . . . . . . . . . 4 SPECIMEN: FINE NEEDLE ASPIRATION-TRANSBRONCHIAL , 4R (PART D) PROCEDURE(S): TRANSBRONCHIAL NEEDLE ASPIRATION GROSS DESCRIPTION: 15 ml, clear fluid, w/cytolyt. Materials Prepared & Examined: Cell Blocks . . . . . . . . . . . . 1 Smear Slides . . . . . . . . . . . 2 SPECIMEN: FINE NEEDLE ASPIRATION-TRANSBRONCHIAL , 11R (PART E) PROCEDURE(S): TRANSBRONCHIAL NEEDLE ASPIRATION GROSS DESCRIPTION: 15 ml, [place] fluid, w/cytolyt. Materials Prepared & Examined: Cell Blocks . . . . . . . . . . . . 1 Smear Slides . . . . . . . . . . . 2 SPECIMEN: BRONCHOALVEOLAR LAVAGE, RIGHT LOWER LOBE , (PART F) PROCEDURE(S): LAVAGE GROSS DESCRIPTION: 35 ml, bloody fluid, w/cytolyt. Materials Prepared & Examined: Monolayers . . . . . . . . . . . . 1 Special Stains . . . . . . . . . . DQ , UNST, DD0 Screened by VAISHALI FRY M.D. Printed February 24, 2021 at 7:20:19 PM Disclaimer The following statement applies to all immunohistochemistry, in situ hybridization, molecular studies, and immunofluorescence testing. The use of one or more reagents in the above tests is regulated as an analyte specific reagent (ASR). These tests were developed and their performance characteristics determined by the clinical laboratories of [facility]. They have not been cleared by the US Food and Drug Administration (FDA). The FDA has determined that such clearance or approval is not necessary. All the above immunostains were performed on paraffin embedded tissue. Appropriate positive and negative controls (where applicable) were run in parallel with the patient's specimen; these controls showed expected staining pattern, with acceptable intensity of staining. Immunohistochemical assays have not been validated on decalcified tissues. Results should be interpreted with caution given the raised possibility of false negativity on decalcified specimens. Case (more content not included)... Normal [facility] RF Fluoroscopy Unlisted Proc radha 02-20-2021 RF Fluoroscopy Unlisted Procedure Patient Name: KENN ARSHAD Sr Fluoroscopy ACCESSION EXAM DATE/TIME PROCEDURE ORDERING PROVIDER [id number] 02/20/2021 12:36 EDT RF Fluoroscopy Unlisted MD KRISTIN, RAMI Procedure CPT code 00856 Reason For Exam (RF Fluoroscopy Unlisted Procedure) Mass of right lung Report A total of ??4.21??minutes of fluoro time was used in the Operating Suite for this procedure. ?? No other report will be generated. Final Signed Date and Time: 03/05/2021 12:16 pm Signed by: SAGGER FILLER, SYSTEM Transcribed Date and Time: 03/05/2021 11:44 Transcribed By:ALEXA [facility] Surgical Pathologyon 021 Surgical Pathology [id number] [facility] DEPARTMENT OF [facility] PATHOLOGY AND LABORATORY MEDICINE [address] [place] [id number] FINAL SURGICAL PATHOLOGY REPORT NAME: KENN ARSHAD Linda : 1955 65 Y M [facility] NO.: [id number] [address] PROCEDURE 02/20/2021 DATE: SURGEON: JOSE MIGUEL FOSTER MD RECEIVED 02/20/2021 DATE: ATTENDING: JOSE MIGUEL FOSTER MD REPORT DATE: 02/24/2021 COPIES TO: DIAGNOSIS: LUNG, RIGHT LOWER LOBE, BIOPSY - MODERATELY TO POORLY DIFFERENTIATED ADENOCARCINOMA OF LUNG PRIMARY. Comment: The malignant cells show positive staining for TTF-1 and are negative for p40, supporting an adenocarcinoma of lung origin. Please also see patient's concurrent cytology specimen ([id number]) for additional information. CRH/CRH Signature> VAISHALI FRY M.D. CLINICAL INFORMATION: Lung mass SPECIMEN: LUNG, NEEDLE CORE BIOPSY INTRAOPERATIVE CONSULTATION/FROZEN SECTION DIAGNOSIS: TOUCH PREP: TP1 - Bronchial cells. TP2 - Rare bronchial cells. TP3 - Macrophages and rare bronchial cells. TP4 - Bronchial cells. TP5 - Adequate. Amari Fry M.D. GROSS DESCRIPTION: Received in formalin labeled RLL lung mass biopsy are multiple, hemorrhagic, core-like tissue fragments which aggregate to approximately 1 x 0.5 cm. Specimen is entirely submitted in a single cassette. JCK/JAF Disclaimer: The following statement applies to all immunohistochemistry, in situ hybridization, molecular studies, and immunofluorescence testing. The use of one or more reagents in the above tests is regulated as an analyte specific reagent (ASR). These tests were developed and their performance characteristics determined by the clinical laboratories of [facility]. They have not been cleared by the US Food and Drug Administration (FDA). The FDA has determined that such clearance or approval is not necessary. All the above immunostains were performed on paraffin embedded tissue. Appropriate positive and negative controls (where applicable) were run in parallel with the patient's specimen; these controls showed expected staining pattern, with acceptable intensity of staining. Immunohistochemical assays have not been validated on decalcified tissues. Results should be interpreted with caution given the raised possibility of false negativity on decalcified specimens. Professional Performing Location: [address] [address]. DEPARTMENT OF PATHOLOGY AND LABORATORY MEDICINE [place], [place] [address] [email or web address] [id number] Normal [facility] XR CHEST PORTABLEon 02-21-20 Patient Name: KENN VAUGHN Sr Diagnostic Radiology ACCESSION EXAM DATE/TIME PROCEDURE ORDERING PROVIDER [id number] 02/20/2021 13:44 EDT CR Chest Portable MD FOSTER RAMI CPT code 60488 Reason For Exam (CR Chest Portable) post right lung biopsy Report PORTABLE CHEST X-RAY CLINICAL INDICATION: Status post right lung biopsy A portable frontal view of the chest was obtained. COMPARISON: PET/CT dated 02/14/2021 FINDINGS: The heart size is within normal limits. No new mass posterior to the right hilum on the PET/CT is similar to prior chest x-rays. There is no evidence of pneumothorax following biopsy. The lungs are otherwise clear. There is no pleural effusion. Bony structures are unremarkable. IMPRESSION: Right infrahilar soft tissue prominence corresponds to the known mass seen on prior examinations. No evidence of pneumothorax following biopsy. Report Dictated on --- Final --- Dictated: 02/20/2021 2:10 pm Dictating Physician: MD MAY JONATHAN R Signed Date and Time: 02/20/2021 2:14 pm Signed by: MD MAY JONATHAN R Transcribed Date and Time: 02/20/2021 2:10 [facility] Work Phone: [facility], [facility] In[facility] Results From [facility] - 02/20/2021 2:15 PM EDT Patient Name: KENN ARSHAD Sr Diagnostic Radiology ACCESSION EXAM DATE/TIME PROCEDURE ORDERING PROVIDER [id number] 02/20/2021 13:44 EDT CR Chest Portable MD FOSTER RAMI CPT code 50999 Reason For Exam (CR Chest Portable) post right lung biopsy Report PORTABLE CHEST X-RAY CLINICAL INDICATION: Status post right lung biopsy A portable frontal view of the chest was obtained. COMPARISON: PET/CT dated 02/14/2021 FINDINGS: The heart size is within normal limits. No new mass posterior to the right hilum on the PET/CT is similar to prior chest x-rays. There is no evidence of pneumothorax following biopsy. The lungs are otherwise clear. There is no pleural effusion. Bony structures are unremarkable. IMPRESSION: Right infrahilar soft tissue prominence corresponds to the known mass seen on prior examinations. No evidence of pneumothorax following biopsy. Report Dictated on --- Final --- Dictated: 02/20/2021 2:10 pm Dictating Physician: MD MAY JONATHAN R Signed Date and Time: 02/20/2021 2:14 pm Signed by: MD MAY JONATHAN R Transcribed Date and Time: 02/20/2021 2:10 [facility] Work Phone: PET CT SKULL BASE TO [facility] 02-14-2021 Patient Name: KENN VAUGHN Sr [facility]#: [id number] PET ACCESSION EXAM DATE/TIME PROCEDURE ORDERING PROVIDER [id number] 02/14/2021 08:55 EDT PT w/ CT Scan Skull Base MD KRISTIN, RAM to [facility] CPT code 31937 A9552 Reason For Exam (PT w/ CT Scan Skull Base to [facility]) Pulmonary nodule evaluation; None of the following: Age < 35 years, fever, high-risk appearing nodule, or history of cancer; Follow-up, single pulmonary nodule; Solid nodule; High-risk exposure; Pulmonary nodule > 8 mm Report PET/CT CLINICAL INDICATION: SPN Following the intravenous administration of 10.6 mCi of fluorine-18 fluorodeoxyglucose (FDG) a PET scan of the torso was acquired after an approximately one hour delay. Blood glucose level at the time of injection was 93 mg/dl. Contemporaneously, noncontrast axial CT images were obtained using low dose technique. The images were reconstructed in three orthogonal planes and digitally coregistered. The CT data was used for attenuation correction as well. COMPARISON: CT chest screening dated 01/28/2021 NECK AND CHEST: There is intense (maximal SUV 16) FDG accumulation within the posterior aspect of the right lower lobe, corresponding to a thick-walled, cavitary mass on the low-dose CT images measuring up to 5.3 x 3.7 cm in greatest diameter on the low-dose CT images. The intensity of uptake is consistent with malignancy. The cluster of small, noncalcified nodules within the lateral aspect of the right lower lobe just above the right hemidiaphragm demonstrate no appreciable FDG accumulation, most consistent with a benign etiology. There is abnormal (maximal SUV 7.1) FDG accumulation within a right hilar lymph node. No additional FDG avid lymphadenopathy is seen within the neck or chest. ABDOMEN AND PELVIS: No abnormal FDG accumulation is seen within the abdomen or pelvis. MUSCULOSKELETAL: Unremarkable. No evidence of osseous metastatic disease. IMPRESSION: Intensely FDG avid right lower lobe mass is consistent with malignancy. 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 PET Report No evidence of distant metastatic disease is identified. Small, noncalcified nodules at the periphery of the right lung base demonstrate no appreciable FDG accumulation, most consistent with a benign etiology. Report Dictated on --- Final --- Dictating Physician: MD MAY JONATHAN R Signed Date and Time: 02/14/2021 4:21 pm Signed by: MD MAY JONATHAN R Transcribed Date and Time: 02/14/2021 4:23 [facility] Work Phone: [facility], [facility] Incoming Radiology Results From [facility] - 02/14/2021 4:23 PM EDT [facility]: [id number] ACCESSION EXAM DATE/TIME PROCEDURE ORDERING PROVIDER [id number] 02/14/2021 08:55 EDT PT w/ CT Scan Skull Base MD KRISTIN, RAMI to [facility] CPT code 35612 A9552 Reason For Exam (PT w/ CT Scan Skull Base to [facility]) Pulmonary nodule evaluation; None of the following: Age < 35 years, fever, high-risk appearing nodule, or history of cancer; Follow-up, single pulmonary nodule; Solid nodule; High-risk exposure; Pulmonary nodule > 8 mm Report PET/CT CLINICAL INDICATION: SPN Following the intravenous administration of 10.6 mCi of fluorine-18 fluorodeoxyglucose (FDG) a PET scan of the torso was acquired after an approximately one hour delay. Blood glucose level at the time of injection was 93 mg/dl. Contemporaneously, noncontrast axial CT images were obtained using low dose technique. The images were reconstructed in three orthogonal planes and digitally coregistered. The CT data was used for attenuation correction as well. COMPARISON: CT chest screening dated 01/28/2021 NECK AND CHEST: There is intense (maximal SUV 16) FDG accumulation within the posterior aspect of the right lower lobe, corresponding to a thick-walled, cavitary mass on the low-dose CT images measuring up to 5.3 x 3.7 cm in greatest diameter on the low-dose CT images. The intensity of uptake is consistent with malignancy. The cluster of small, noncalcified nodules within the lateral aspect of the right lower lobe just above the right hemidiaphragm demonstrate no appreciable FDG accumulation, most consistent with a benign etiology. There is abnormal (maximal SUV 7.1) FDG accumulation within a right hilar lymph node. No additional FDG avid lymphadenopathy is seen within the neck or chest. ABDOMEN AND PELVIS: No abnormal FDG accumulation is seen within the abdomen or pelvis. MUSCULOSKELETAL: Unremarkable. No evidence of osseous metastatic disease. IMPRESSION: Intensely FDG avid right lower lobe mass is consistent with malignancy. 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 PET Report No evidence of distant metastatic disease is identified. Small, noncalcified nodules at the periphery of the right lung base demonstrate no appreciable FDG accumulation, most consistent with a benign etiology. Report Dictated on --- Final --- Dictating Physician: MD MAY JONATHAN R Signed Date and Time: 02/14/2021 4:21 pm Signed by: MD MAY JONATHAN R Transcribed Date and Time: 02/14/2021 4:23 [facility] Work Phone: PT w/ CT Scan Skull Base to [facility] 02-14-2021 PT w/ CT Scan Skull Base to [facility] Patient [facility]: [id number] PET ACCESSION EXAM DATE/TIME PROCEDURE ORDERING PROVIDER [id number] 02/14/2021 08:55 EDT PT w/ CT Scan Skull Base MD KRISTIN, RAMI to [facility] CPT code 44310 A9552 Reason For Exam (PT w/ CT Scan Skull Base to [facility]) Pulmonary nodule evaluation; None of the following: Age < 35 years, fever, high-risk appearing nodule, or history of cancer; Follow-up, single pulmonary nodule; Solid nodule; High-risk exposure; Pulmonary nodule > 8 mm Report PET/CT CLINICAL INDICATION: SPN Following the intravenous administration of 10.6 mCi of fluorine-18 fluorodeoxyglucose (FDG) a PET scan of the torso was acquired after an approximately one hour delay. Blood glucose level at the time of injection was 93 mg/dl. Contemporaneously, noncontrast axial CT images were obtained using low dose technique. The images were reconstructed in three orthogonal planes and digitally coregistered. The CT data was used for attenuation correction as well. COMPARISON: CT chest screening dated 01/28/2021 NECK AND CHEST: There is intense (maximal SUV 16) FDG accumulation within the posterior aspect of the right lower lobe, corresponding to a thick-walled, cavitary mass on the low-dose CT images measuring up to 5.3 x 3.7 cm in greatest diameter on the low-dose CT images. The intensity of uptake is consistent with malignancy. The cluster of small, noncalcified nodules within the lateral aspect of the right lower lobe just above the right hemidiaphragm demonstrate no appreciable FDG accumulation, most consistent with a benign etiology. There is abnormal (maximal SUV 7.1) FDG accumulation within a right hilar lymph node. No additional FDG avid lymphadenopathy is seen within the neck or chest. ABDOMEN AND PELVIS: No abnormal FDG accumulation is seen within the abdomen or pelvis. MUSCULOSKELETAL: Unremarkable. No evidence of osseous metastatic disease. IMPRESSION: Intensely FDG avid right lower lobe mass is consistent with malignancy. 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 PET Report No evidence of distant metastatic disease is identified. Small, noncalcified nodules at the periphery of the right lung base demonstrate no appreciable FDG accumulation, most consistent with a benign etiology. Report Dictated on Final Dictating Physician: MD MAY JONATHAN R Signed Date and Time: 02/14/2021 4:21 pm Signed by: MD MAY JONATHAN R Transcribed Date and Time: 02/14/2021 4:23 Normal [facility] CT Low Dose Lung Screeningon 01-28-2021 CT Low Dose Lung Screening Patient [facility]: [id number] Computed Tomography ACCESSION EXAM DATE/TIME PROCEDURE ORDERING PROVIDER [id number] 01/28/2021 08:[address] Low Dose Lung Scrn DO JENNINGS EUGENE F. CPT code G0297 Reason For Exam (CT Low Dose Lung Scrn) Nicotine dependence, unspecified, uncomplicated Report CT CHEST SCREENING WITHOUT CONTRAST CLINICAL INDICATION: Tobacco use, screening for lung cancer. The patient reports a previous history of kidney cancer with left nephrectomy. Low-dose axial CT images of the thorax from the lung apices through the bases were obtained. Coronal and sagittal reformatted images were also made available for interpretation. COMPARISON: None. FINDINGS: No focal consolidation is seen within the lungs. There is no pleural effusion or pneumothorax. Mild emphysematous changes are noted within the lungs. There is a large, spiculated mass within the right lower lobe with areas of central cavitation. This mass measures up to 5.3 x 3.9 cm in greatest axial diameter. There is a 4 mm noncalcified nodule within the anterior left upper lobe on axial image 210 of 451. There is a faint, 3 mm nodule within the left lower lobe on axial image 236. There is a 7 mm mean diameter nodule within the lateral aspect of the right lower lobe on axial image 296. There is a 1 cm mean diameter nodule within the right lower lobe on axial image 309. A 7 mm nodules present within the right lower lobe on axial image 302. Right hilar lymphadenopathy is suspected. No axillary or mediastinal is identified on these noncontrast images. The heart size is within normal limits. There is no pericardial effusion. The thoracic aorta is normal in caliber. Fairly extensive coronary artery calcification is noted. Within the visualized portion of the upper abdomen, there appears to be abnormal enlargement of the right adrenal gland. The left kidney has been removed. IMPRESSION: Spiculated, partially cavitary mass within the right lower lobe measures up to 5.3 x 3.9 cm in greatest diameter, typical in appearance for malignancy. Right hilar lymphadenopathy is suspected, however is difficult to evaluate on this noncontrast study. Several noncalcified nodules within the right lower lobe measuring up to 1 cm are also noted, suspicious for metastases. There are several additional tiny Computed Tomography Report nodular densities within the lungs bilaterally measuring 4 mm or less in diameter, nonspecific in appearance. Enlargement of the right adrenal gland, suspicious for underlying mass. This is not fully characterized on this noncontrast examination. Postoperative changes consistent with left nephrectomy are noted. ASSESSMENT CATEGORY: Lung-RADS 4X - Very Suspicious with additional features that increase the suspicion of malignancy. Recommend CT chest with or without contrast, PET/CT, and/or tissue sampling depending on the probability of malignancy and comorbidities. Lung-RADS Version 1.1 Assessment Categories - for Screening CT Chest Only. Release date: March 31, 2019 Report Dictated on Final Dictating Physician: MD MAY JONATHAN R Signed Date and Time: 01/28/2021 9:16 am Signed by: MD MAY JONATHAN R Transcribed Date and Time: 01/28/2021 9:17 Normal [facility] CT lung screen [Initial/Deja al]on 01-28-2021 Patient [id number] Computed Tomography ACCESSION EXAM DATE/TIME PROCEDURE ORDERING PROVIDER [id number] 01/28/2021 08:[address] Low Dose Lung Scrn DO JENNINGS EUGENE F. CPT code G0297 Reason For Exam (CT Low Dose Lung Scrn) Nicotine dependence, unspecified, uncomplicated Report CT CHEST SCREENING WITHOUT CONTRAST CLINICAL INDICATION: Tobacco use, screening for lung cancer. The patient reports a previous history of kidney cancer with left nephrectomy. Low-dose axial CT images of the thorax from the lung apices through the bases were obtained. Coronal and sagittal reformatted images were also made available for interpretation. COMPARISON: None. FINDINGS: No focal consolidation is seen within the lungs. There is no pleural effusion or pneumothorax. Mild emphysematous changes are noted within the lungs. There is a large, spiculated mass within the right lower lobe with areas of central cavitation. This mass measures up to 5.3 x 3.9 cm in greatest axial diameter. There is a 4 mm noncalcified nodule within the anterior left upper lobe on axial image 210 of 451. There is a faint, 3 mm nodule within the left lower lobe on axial image 236. There is a 7 mm mean diameter nodule within the lateral aspect of the right lower lobe on axial image 296. There is a 1 cm mean diameter nodule within the right lower lobe on axial image 309. A 7 mm nodules present within the right lower lobe on axial image 302. Right hilar lymphadenopathy is suspected. No axillary or mediastinal is identified on these noncontrast images. The heart size is within normal limits. There is no pericardial effusion. The thoracic aorta is normal in caliber. Fairly extensive coronary artery calcification is noted. Within the visualized portion of the upper abdomen, there appears to be abnormal enlargement of the right adrenal gland. The left kidney has been removed. IMPRESSION: Spiculated, partially cavitary mass within the right lower lobe measures up to 5.3 x 3.9 cm in greatest diameter, typical in appearance for malignancy. Right hilar lymphadenopathy is suspected, however is difficult to evaluate on this noncontrast study. Several noncalcified nodules within the right lower lobe measuring up to 1 cm are also noted, suspicious for metastases. There are several additional tiny Computed Tomography Report nodular densities within the lungs bilaterally measuring 4 mm or less in diameter, nonspecific in appearance. Enlargement of the right adrenal gland, suspicious for underlying mass. This is not fully characterized on this noncontrast examination. Postoperative changes consistent with left nephrectomy are noted. ASSESSMENT CATEGORY: Lung-RADS 4X - Very Suspicious with additional features that increase the suspicion of malignancy. Recommend CT chest with or without contrast, PET/CT, and/or tissue sampling depending on the probability of malignancy and comorbidities. Lung-RADS Version 1.1 Assessment Categories - for Screening CT Chest Only. Release date: March 31, 2019 Report Dictated on --- Final --- Dictating Physician: MD MAY JONATHAN R Signed Date and Time: 01/28/2021 9:16 am Signed by: MD MAY JONATHAN R Transcribed Date and Time: 01/28/2021 9:17 [facility] Work Phone: [facility], [facility] Incoming Radiology Results From [facility] - 01/28/2021 9:18 AM EDT [facility]: [id number] Computed Tomography ACCESSION EXAM DATE/TIME PROCEDURE ORDERING PROVIDER [id number] 01/28/2021 08:[address] Low Dose Lung Scrn DO JENNINGS EUGENE F. CPT code G0297 Reason For Exam (CT Low Dose Lung Scrn) Nicotine dependence, unspecified, uncomplicated Report CT CHEST SCREENING WITHOUT CONTRAST CLINICAL INDICATION: Tobacco use, screening for lung cancer. The patient reports a previous history of kidney cancer with left nephrectomy. Low-dose axial CT images of the thorax from the lung apices through the bases were obtained. Coronal and sagittal reformatted images were also made available for interpretation. COMPARISON: None. FINDINGS: No focal consolidation is seen within the lungs. There is no pleural effusion or pneumothorax. Mild emphysematous changes are noted within the lungs. There is a large, spiculated mass within the right lower lobe with areas of central cavitation. This mass measures up to 5.3 x 3.9 cm in greatest axial diameter. There is a 4 mm noncalcified nodule within the anterior left upper lobe on axial image 210 of 451. There is a faint, 3 mm nodule within the left lower lobe on axial image 236. There is a 7 mm mean diameter nodule within the lateral aspect of the right lower lobe on axial image 296. There is a 1 cm mean diameter nodule within the right lower lobe on axial image 309. A 7 mm nodules present within the right lower lobe on axial image 302. Right hilar lymphadenopathy is suspected. No axillary or mediastinal is identified on these noncontrast images. The heart size is within normal limits. There is no pericardial effusion. The thoracic aorta is normal in caliber. Fairly extensive coronary artery calcification is noted. Within the visualized portion of the upper abdomen, there appears to be abnormal enlargement of the right adrenal gland. The left kidney has been removed. IMPRESSION: Spiculated, partially cavitary mass within the right lower lobe measures up to 5.3 x 3.9 cm in greatest diameter, typical in appearance for malignancy. Right hilar lymphadenopathy is suspected, however is difficult to evaluate on this noncontrast study. Several noncalcified nodules within the right lower lobe measuring up to 1 cm are also noted, suspicious for metastases. There are several additional tiny Computed Tomography Report nodular densities within the lungs bilaterally measuring 4 mm or less in diameter, nonspecific in appearance. Enlargement of the right adrenal gland, suspicious for underlying mass. This is not fully characterized on this noncontrast examination. Postoperative changes consistent with left nephrectomy are noted. ASSESSMENT CATEGORY: Lung-RADS 4X - Very Suspicious with additional features that increase the suspicion of malignancy. Recommend CT chest with or without contrast, PET/CT, and/or tissue sampling depending on the probability of malignancy and comorbidities. Lung-RADS Version 1.1 Assessment Categories - for Screening CT Chest Only. Release date: March 31, 2019 Report Dictated on --- Final --- Dictating Physician: MD MAY JONATHAN R Signed Date and Time: 01/28/2021 9:16 am Signed by: MD MAY JONATHAN R Transcribed Date and Time: 01/28/2021 9:17 [facility] Work Phone: VL ARTERIAL PVR LOWER WO EXE RCISEon 01-25-2021 [facility] Multilevel Lower Extremity Arterial Evaluation Report Patient Jeancarlos, : 1955 Study 01/25/2021 Name: Kenn Nava (65yrs) Date: Patient [id number] Age: 65 Account: [id number] ID: Gender: M Loc: BP: Ordering Physician: Jacob Jennings Sheet Ironworker: Sudeep Ann RVT Interpreting Physician: Stanton Eugene MD Location: [facility] Indications: PAD. Conclusions 1. Right resting RAZA is 0.59 and TBI is 0.42. These findings show severe arterial insufficiency. 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 PVR waveforms appear diminished in the right calf. 2. Left resting RAZA is 0.79 and TBI is 0.70. These findings show moderate arterial insufficiency. Segmental pressures and waveforms show moderate arterial insufficiency due to femoralpopliteal disease. PVR waveforms appear diminished in the left calf. History: Risk factors: Current tobacco use. Hypertension. Hyperlipidemia. Age over 65 years. Study data: Lower extremity multilevel physiologic evaluation. Pressure measurement and pulse volume recording. Location: Vascular laboratory. Objective: Diagnostic evaluation. Procedure: A vascular evaluation was performed with the patient in the supine position. Images were obtained using a [employer] 2100 vascular ultrasound machine. Arterial pressure indices: + + -----+ + +Location +Pressure (REST)*+Index (REST)+ + + -----+ + +R brachial +143 + + + + -----+ + +R high thigh+124 +0.87 + + + -----+ + +R low thigh +118 +0.83 + + + -----+ + +R calf +110 +0.77 + + + -----+ + +R DP +76 +0.53 + + + -----+ + +R PT +85 +0.59 + + + -----+ + +R great toe +60 +0.42 + + + -----+ + +L brachial +133 + + + + -----+ + +L high thigh+142 +0.99 + + + -----+ + +L low thigh +120 +0.84 + + + -----+ + +L calf +113 +0.79 + + + -----+ + +L DP +111 +0.78 + + + -----+ + +L PT +113 +0.79 + + + -----+ + +L great toe +100 +0.70 + + + -----+ + Prepared and electronically signed by Stanton Eugene MD 01/25/2021 15:11 [employer] Work Phone: Ronnie, [facility] Incoming Cardiology Results From [facility] - 01/25/2021 3:11 PM EDT [facility] Multilevel Lower Extremity Arterial Evaluation Report Patient NIKO Arshad: 1955 Study 01/25/2021 Name: Kenn Nava (65yrs) Date: Patient [id number] Age: 65 Account: [id number] ID: Gender: M Loc: BP: Ordering Physician: Jacob Jennings Sheet Ironworker: Sudeep Ann T Interpreting Physician: Stanton Eugene MD Location: [facility] Indications: PAD. Conclusions 1. Right resting RAZA is 0.59 and TBI is 0.42. These findings show severe arterial insufficiency. 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 PVR waveforms appear diminished in the right calf. 2. Left resting RAZA is 0.79 and TBI is 0.70. These findings show moderate arterial insufficiency. Segmental pressures and waveforms show moderate arterial insufficiency due to femoralpopliteal disease. PVR waveforms appear diminished in the left calf. History: Risk factors: Current tobacco use. Hypertension. Hyperlipidemia. Age over 65 years. Study data: Lower extremity multilevel physiologic evaluation. Pressure measurement and pulse volume recording. Location: Vascular laboratory. Objective: Diagnostic evaluation. Procedure: A vascular evaluation was performed with the patient in the supine position. Images were obtained using a [employer] 2100 vascular ultrasound machine. Arterial pressure indices: + + -----+ + +Location +Pressure (REST)*+Index (REST)+ + + -----+ + +R brachial +143 + + + + -----+ + +R high thigh+124 +0.87 + + + -----+ + +R low thigh +118 +0.83 + + + -----+ + +R calf +110 +0.77 + + + -----+ + +R DP +76 +0.53 + + + -----+ + +R PT +85 +0.59 + + + -----+ + +R great toe +60 +0.42 + + + -----+ + +L brachial +133 + + + + -----+ + +L high thigh+142 +0.99 + + + -----+ + +L low thigh +120 +0.84 + + + -----+ + +L calf +113 +0.79 + + + -----+ + +L DP +111 +0.78 + + + -----+ + +L PT +113 +0.79 + + + -----+ + +L great toe +100 +0.70 + + + -----+ + Prepared and electronically signed by Stanton Eugene MD 01/25/2021 15:11 [facility] Work Phone: VL PVR Arterial Doppler Lwr w/o Exerciseon 01-25-2021 VL PVR Arterial Doppler Lwr w/o Exercise Patient Name: KENN ARSHAD Sr Ultrasound ACCESSION EXAM DATE/TIME PROCEDURE ORDERING PROVIDER [id number] 01/25/2021 14:07 EDT VL PVR Arterial Doppler DO JENNINGS EUGENE F. Lwr w/o Exercise CPT code 89856 Reason For Exam (VL PVR Arterial Doppler Lwr w/o Exercise) PAD Report [facility] [place] Multilevel Lower Extremity Arterial Evaluation Report Patient DO JeancarlosB: 1955 Study 01/25/2021 Name: Kenn Nava (65yrs) Date: Patient [id number] Age: 65 Account: [id number] ID: Gender: M Loc: BP: Ordering Physician: Jacob Jennings Sheet Ironworker: Sudeep Ann RVT Interpreting Physician: Stanton Eugene MD Location: [facility] Indications: PAD. Conclusions 1. Right resting RAZA is 0.59 and TBI is 0.42. These findings show severe arterial insufficiency. 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 PVR waveforms appear diminished in the right calf. 2. Left resting RAZA is 0.79 and TBI is 0.70. These findings show moderate arterial insufficiency. Segmental pressures and waveforms show moderate arterial insufficiency due to femoralpopliteal disease. PVR waveforms appear diminished in the left calf. History: Risk factors: Current tobacco use. Hypertension. Hyperlipidemia. Age over 65 years. Study data: Lower extremity multilevel physiologic evaluation. Pressure measurement and pulse volume recording. Location: Vascular Ultrasound Report laboratory. Objective: Diagnostic evaluation. Procedure: A vascular evaluation was performed with the patient in the supine position. Images were obtained using a [employer] 2100 vascular ultrasound machine. Arterial pressure indices: + + -----+ + +Location +Pressure (REST)*+Index (REST)+ + + -----+ + +R brachial +143 + + + + -----+ + +R high thigh+124 +0.87 + + + -----+ + +R low thigh +118 +0.83 + + + -----+ + +R calf +110 +0.77 + + + -----+ + +R DP +76 +0.53 + + + -----+ + +R PT +85 +0.59 + + + -----+ + +R great toe +60 +0.42 + + + -----+ + +L brachial +133 + + + + -----+ + +L high thigh+142 +0.99 + + + -----+ + +L low thigh +120 +0.84 + + + -----+ + +L calf +113 +0.79 + + + -----+ + +L DP +111 +0.78 + + + -----+ + +L PT +113 +0.79 + + + -----+ + +L great toe +100 +0.70 + + + -----+ + Prepared and electronically signed by Stanton Eugene MD 01/25/2021 15:11 Final Dictated: 01/25/2021 3:11 pm Dictating Physician: STANTON EUGENE Signed Date and Time: 01/25/2021 3:11 pm Signed by: STANTON EUGENE Cardiovascular ACCESSION EXAM DATE/TIME PROCEDURE [id number] 01/25/2021 14:07 EDT VL PVR Arterial Doppler Lwr w/o Exercise CPT code 38382 Cardiovascular Reason For Exam (VL PVR Arterial Doppler Lwr w/o Exercise) PAD Report [facility] Multilevel Lower Extremity Arterial Evaluation Report Patient Jeancarlos, : 1955 Study 01/25/2021 Name: Kenn Nava (65yrs) Date: Patient [id number] Age: 65 Account: [id number] ID: Gender: M Loc: BP: Ordering Physician: Jacob Jennings Sheet Ironworker: Sudeep Ann RVT Interpreting Physician: Stanton Eugene MD Location: [facility] Indications: PAD. Conclusions 1. Right resting RAZA is 0.59 and TBI is 0.42. These findings show severe arterial insufficiency. 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 PVR waveforms appear diminish (more content not included)... Normal [facility] VL DUP CAROTID BILATERALon 0 07-13-2020 Patient Name: KENN VAUGHN Sr ---Ultrasound--- Exam Date/Time 07/13/2020 12:33:10 EDT Exam VL Carotid Duplex Ultrasound Complete Ordering Physician DO JENNINGS EUGENE F. Accession Number [id number] CPT4 Codes 81496 () Reason For Exam R09.89 Report BILATERAL CAROTID ULTRASOUND: CLINICAL INDICATION: Right carotid bruit. TECHNIQUE: Two-dimensional, Color-flow and spectral Doppler sonography of the extracranial arterial circulation was performed. COMPARISON: None. FINDINGS: RIGHT: Plaque: Moderate calcified and noncalcified plaque identified CCA peak systolic: 66 cm/sec CCA end diastolic: 14 cm/sec ICA peak systolic: 105 cm/sec ICA end diastolic: 35 cm/sec ICA/CCA ratio: 1.6 Estimated ICA stenosis: Less than 50% ECA systolic: 149 cm/sec Vertebral: Antegrade LEFT: Plaque: Moderate calcified and noncalcified plaque identified CCA peak systolic: 104 cm/sec CCA end diastolic: 24 cm/sec ICA peak systolic: 99 cm/sec ICA end diastolic: 38 cm/sec ICA/CCA ratio: 1.0 Estimated ICA stenosis: Less than 50% ECA systolic: 151 cm/sec Vertebral: Antegrade IMPRESSION: 1. No hemodynamically significant internal carotid stenosis (less than 50% stenosis) on the left and right. 2. Moderate external carotid artery incidentally noted. 3. Patent vertebral arteries. This radiologist maintains RVT certification. Reference: Measurement of carotid stenosis is a ratio based on conventional angiographic data from the NASCET trials with the smallest caliber of the internal carotid as the numerator and normal post-stenotic internal carotid caliber as denominator. Stenosis based upon Society of Radiologists in Ultrasound consensus: <50%: ICA PS <125 cm/sec, ICA ED <40 cm/sec, ICA/CCA ratio <2.0 50-69%: ICA PS 125-230 cm/sec , ICA ED 40-100 cm/sec, ICA/CCA ratio 2-4 >70%: ICA PS >230 cm/sec, ICA ED >100 cm/sec, ICA/CCA ratio >4 Report Dictated on Workstation: [id number] --- Final --- Dictating Physician: MD RO JEFFREY Signed Date and Time: 07/13/2020 8:28 pm Signed by: MD RO JEFFREY Transcribed Date and Time: 07/13/2020 8:29 [facility], [place] Ron[place], [facility] Incoming Cardiology Results [facility] - 07/13/2020 8:29 PM EDT Patient Name: KENN ARSHAD Sr ---Ultrasound--- Exam Date/Time 07/13/2020 12:33:10 EDT Exam VL Carotid Duplex Ultrasound Complete Ordering Physician DO JENNINGS EUGENE F. Accession Number [id number] CPT4 Codes 07078 () Reason For Exam R09.89 Report BILATERAL CAROTID ULTRASOUND: CLINICAL INDICATION: Right carotid bruit. TECHNIQUE: Two-dimensional, Color-flow and spectral Doppler sonography of the extracranial arterial circulation was performed. COMPARISON: None. FINDINGS: RIGHT: Plaque: Moderate calcified and noncalcified plaque identified CCA peak systolic: 66 cm/sec CCA end diastolic: 14 cm/sec ICA peak systolic: 105 cm/sec ICA end diastolic: 35 cm/sec ICA/CCA ratio: 1.6 Estimated ICA stenosis: Less than 50% ECA systolic: 149 cm/sec Vertebral: Antegrade LEFT: Plaque: Moderate calcified and noncalcified plaque identified CCA peak systolic: 104 cm/sec CCA end diastolic: 24 cm/sec ICA peak systolic: 99 cm/sec ICA end diastolic: 38 cm/sec ICA/CCA ratio: 1.0 Estimated ICA stenosis: Less than 50% ECA systolic: 151 cm/sec Vertebral: Antegrade IMPRESSION: 1. No hemodynamically significant internal carotid stenosis (less than 50% stenosis) on the left and right. 2. Moderate external carotid artery incidentally noted. 3. Patent vertebral arteries. This radiologist maintains RVT certification. Reference: Measurement of carotid stenosis is a ratio based on conventional angiographic data from the NASCET trials with the smallest caliber of the internal carotid as the numerator and normal post-stenotic internal carotid caliber as denominator. Stenosis based upon Society of Radiologists in Ultrasound consensus: <50%: ICA PS <125 cm/sec, ICA ED <40 cm/sec, ICA/CCA ratio <2.0 50-69%: ICA PS 125-230 cm/sec , ICA ED 40-100 cm/sec, ICA/CCA ratio 2-4 >70%: ICA PS >230 cm/sec, ICA ED >100 cm/sec, ICA/CCA ratio >4 Report Dictated on Workstation: [id number] --- Final --- Dictating Physician: MD RO JEFFREY Signed Date and Time: 07/13/2020 8:28 pm Signed by: MD RO JEFFREY Transcribed Date and Time: 07/13/2020 8:29 [facility], [place] VL Arterial PVR Lower w Exer ciseon 07-15-2019 [facility] --- Multilevel Lower Extremity Arterial Evaluation with Exercise Patient Name: Kenn Arshad : 1955 Study Date: 07/15/2019 D (63yrs) Age: 63 Account: [id number] Gender: M Loc: BP: Ordering: Jacob Jennings Technologist: Ordering Physician: Jacob Jennings Sheet Ironworker: Lolly Sandra Interpreting Physician: Khalif Lara --- Location: [facility] --- INDICATIONS: Claudication of the right leg Patient states his legs feel tired and heavy when he walks Becoming progressively worse over the past 1-2 years. --- CONCLUSIONS 1. Right lower extremity with severe arterial insufficiency at rest and abnormal response to exercise 2. Left lower extremity with moderate arterial insufficiency at rest and abnormal response to exercise --- IMPRESSIONS: - Right RAZA demonstrates severe arterial insufficiency at rest. PVR waveforms and segmental pressures reveal aorto-iliac, proximal SFA disease - The right lower extremity shows an abnormal response to exercise, with post exercise RAZA in the critical category - Left RAZA demonstrates moderate arterial insufficiency at rest. PVR waveforms and segmental pressures reveal distal SFA/popliteal disease - The left lower extremity shows an abnormal response to exercise, with post exercise RAZA in the severe category --- HISTORY: Risk factors: Current tobacco use. Hypertension. No diabetes. Non-obese. Dyslipidemia. --- STUDY DATA: Lower extremity multilevel physiologic evaluation with exercise. Birthdate: Patient birthdate: 1955. Age: Patient is 63 yr old. Sex: Gender: male. Ethnicity: Ethnicity: white. Pressure measurement and pulse volume recording. Patient status: Outpatient. Procedure: A vascular evaluation was performed. The images were obtained using a [employer] 2100 vascular ultrasound machine. An exercise arterial exam was performed with exercise on a treadmill. The patient exercised at 1.5 mph at a 10% grade. The patient felt pain in his right leg at 1.5 minutes and the patient stopped the test at 2.5 minute due to intense pain in his right leg. Pre and post exercise measurements were recorded. --- PVR / Doppler waveforms: + +--------- +-----+ !Segment !Pressure !Index! + +--------- +-----+ !R brachial !148 mm Hg!-----! + +--------- +-----+ !R thigh - high!142 mm Hg!0.96 ! + +--------- +-----+ !R thigh - low !111 mm Hg!0.75 ! + +--------- +-----+ !R calf !95 mm Hg !0.64 ! + +--------- +-----+ !R DP !79 mm Hg !0.53 ! + +--------- +-----+ !R PT !86 mm Hg !0.58 ! + +--------- +-----+ !R great toe !36 mm Hg !0.22 ! + +--------- +-----+ !L brachial !146 mm Hg!-----! + +--------- +-----+ !L thigh - low !166 mm Hg!1.12 ! + +--------- +-----+ !L calf !105 mm Hg!0.71 ! + +--------- +-----+ !L DP !106 mm Hg!0.72 ! + +--------- +-----+ !L PT !112 mm Hg!0.76 ! + +--------- +-----+ !L great toe !71 mm Hg !0.48 ! + +--------- +-----+ RAZA and Stress Table: Baseline Post-exercise R PT 86 31 L PT 112 79 R Brachial 148 158 -------- R RAZA 0.58 0.20 L RAZA 0.76 0.50 Electronically signed by: Khalif Lara [id number] [facility] [place], [place], [facility] Incoming Cardiology Results From [facility] - 07/15/2019 9:35 PM EDT [facility] --- Multilevel Lower Extremity Arterial Evaluation with Exercise Patient Name: Kenn Arshad : 1955 Study Date: 07/15/2019 D (63yrs) Age: 63 Account: [id number] Gender: M Loc: BP: Ordering: Jacob Jennings Technologist: Ordering Physician: Jacob Jennings Sheet Ironworker: Lolly Sandra Interpreting Physician: Khalif Lara --- Location: [facility] --- INDICATIONS: Claudication of the right leg Patient states his legs feel tired and heavy when he walks Becoming progressively worse over the past 1-2 years. --- CONCLUSIONS 1. Right lower extremity with severe arterial insufficiency at rest and abnormal response to exercise 2. Left lower extremity with moderate arterial insufficiency at rest and abnormal response to exercise --- IMPRESSIONS: - Right RAZA demonstrates severe arterial insufficiency at rest. PVR waveforms and segmental pressures reveal aorto-iliac, proximal SFA disease - The right lower extremity shows an abnormal response to exercise, with post exercise RAZA in the critical category - Left RAZA demonstrates moderate arterial insufficiency at rest. PVR waveforms and segmental pressures reveal distal SFA/popliteal disease - The left lower extremity shows an abnormal response to exercise, with post exercise RAZA in the severe category --- HISTORY: Risk factors: Current tobacco use. Hypertension. No diabetes. Non-obese. Dyslipidemia. --- STUDY DATA: Lower extremity multilevel physiologic evaluation with exercise. Birthdate: Patient birthdate: 1955. Age: Patient is 63 yr old. Sex: Gender: male. Ethnicity: Ethnicity: white. Pressure measurement and pulse volume recording. Patient status: Outpatient. Procedure: A vascular evaluation was performed. The images were obtained using a [employer] [employer] 2100 vascular ultrasound machine. An exercise arterial exam was performed with exercise on a treadmill. The patient exercised at 1.5 mph at a 10% grade. The patient felt pain in his right leg at 1.5 minutes and the patient stopped the test at 2.5 minute due to intense pain in his right leg. Pre and post exercise measurements were recorded. --- PVR / Doppler waveforms: + +--------- +-----+ !Segment !Pressure !Index! + +--------- +-----+ !R brachial !148 mm Hg!-----! + +--------- +-----+ !R thigh - high!142 mm Hg!0.96 ! + +--------- +-----+ !R thigh - low !111 mm Hg!0.75 ! + +--------- +-----+ !R calf !95 mm Hg !0.64 ! + +--------- +-----+ !R DP !79 mm Hg !0.53 ! + +--------- +-----+ !R PT !86 mm Hg !0.58 ! + +--------- +-----+ !R great toe !36 mm Hg !0.22 ! + +--------- +-----+ !L brachial !146 mm Hg!-----! + +--------- +-----+ !L thigh - low !166 mm Hg!1.12 ! + +--------- +-----+ !L calf !105 mm Hg!0.71 ! + +--------- +-----+ !L DP !106 mm Hg!0.72 ! + +--------- +-----+ !L PT !112 mm Hg!0.76 ! + +--------- +-----+ !L great toe !71 mm Hg !0.48 ! + +--------- +-----+ RAZA and Stress Table: Baseline Post-exercise R PT 86 31 L PT 112 79 R Brachial 148 158 -------- R RAZA 0.58 0.20 L RAZA 0.76 0.50 Electronically signed by: Khalif Lara [id number] [place], [place] Gram stain for investigation of transfusion reaction Microscopic observation Gram stain Nom (Unsp spec) [facility] Work Phone: Influenza virus A and B and SARS-CoV-2 (COVID-19) Ag panel - Upper respiratory specim SARS-CoV-2 (COVID-19) RNA DAVID+probe Ql (Resp) [facility] Work Phone: Laboratory - Microbiology an d Antimicrobial susceptibility Respiratory pathogens DNA and RNA 12b panel DAVID+probe (Unsp spec) [facility] Work Phone: No Panel Information Streptococcus pneumoniae Antigen (M [facility] Work Phone: Stool gastrointestinal hemog lobin detection by immunologic method Lower GI hemoglobin IA Ql (Stl) [facility] Work Phone: Urine Legionella pneumophila antigen detection L. pneumophila Ag Ql (U) [facility] Work Phone: Vital Signs Date Time Vital Sign Value Performing Clinician Facility 09-14-2025 11:41-0500 Diastolic blood pressure 64 mm[Hg] Schedule [facility] 09-14-2025 11:41-0500 Heart rate 78 /min Schedule [facility] 09-14-2025 11:41-0500 SaO2% (BldA) [Mass fraction] 90 % Schedule [facility] 09-14-2025 11:41-0500 Systolic blood pressure 147 mm[Hg] Schedule [facility] 09-07-2025 15:07-0400 Diastolic blood pressure 64 mm[Hg] Eleuterio Hatch MD Work Phone: [facility] 09-07-2025 15:07-0400 Heart rate 77 /min Eleuterio Hatch MD Work Phone: [facility] 09-07-2025 15:07-0400 Systolic blood pressure 146 mm[Hg] Eleuterio Hatch MD Work Phone: [facility] 09-07-2025 14:33-0400 Body height 167.6 cm Eleuterio Hatch MD Work Phone: [facility] 09-07-2025 14:33-0400 Body mass index (BMI) [Ratio] 30.09 kg/m2 Eleuterio Hatch MD Work Phone: [facility] 09-07-2025 14:33-0400 Body weight 84.55 kg Eleuterio Hatch MD Work Phone: [facility] 09-07-2025 14:33-0400 SaO2% (BldA) [Mass fraction] 92 % Eleuterio Hatch MD Work Phone: [facility] 08-24-2025 14:50-0400 Diastolic blood pressure 70 mm[Hg] Dr. Jacob Jennings DO Work Phone: [facility] 08-24-2025 14:50-0400 Heart rate 85 /min Dr. Jacob Jennings DO Work Phone: [facility] 08-24-2025 14:50-0400 Respiratory rate 18 /min Dr. Jacob Jennings DO Work Phone: [facility] 08-24-2025 14:50-0400 SaO2% (BldA) [Mass fraction] 92 % Dr. Jacob Jennings DO Work Phone: [facility] 08-24-2025 14:50-0400 Systolic blood pressure 143 mm[Hg] Dr. Jacob Jennings DO Work Phone: [facility] 08-22-2025 10:16-0400 Body temperature 98.4 [degF] Dr. Jacob Jennings DO Work Phone: [facility] 08-22-2025 10:16-0400 Diastolic blood pressure 60 mm[Hg] Dr. Jacob Jennings DO Work Phone: [facility] 08-22-2025 10:16-0400 Heart rate 84 /min Dr. Jacob Jennings DO Work Phone: [facility] 08-22-2025 10:16-0400 Respiratory rate 18 /min Dr. Jacob Jennings DO Work Phone: [facility] 08-22-2025 10:16-0400 SaO2% (BldA) [Mass fraction] 98 % Dr. Jacob Jennings DO Work Phone: [facility] 08-22-2025 10:16-0400 Systolic blood pressure 140 mm[Hg] Dr. Jacob Jennings DO Work Phone: [facility] 08-20-2025 08:44-0400 Body height 165.[address] Jacob Jennings DO Work Phone: [facility] 08-20-2025 08:44-0400 Body weight 81.[address] Jacob Jennings DO Work Phone: [facility] 08-19-2025 19:33-0400 Body mass index (BMI) [Ratio] 29.9 kg/m2 Dr. Jacob Jennings DO Work Phone: [facility] 08-19-2025 18:01-0400 Diastolic blood pressure 57 mm[Hg] Tono Birch MD Work Phone: [facility] 08-19-2025 18:01-0400 Heart rate 82 /min Tono Birch MD Work Phone: [facility] 08-19-2025 18:01-0400 Respiratory rate 16 /min Tono Birch MD Work Phone: [facility] 08-19-2025 18:01-0400 SaO2% (BldA) [Mass fraction] 96 % Tono Birch MD Work Phone: [facility] 08-19-2025 18:01-0400 Systolic blood pressure 142 mm[Hg] Tono Birch MD Work Phone: [facility] 08-19-2025 15:37-0400 Body temperature 98.6 [degF] Tono Birch MD Work Phone: [facility] 08-19-2025 15:36-0400 Body height 167.6 cm Tono Birch MD Work Phone: [facility] 08-19-2025 15:36-0400 Body mass index (BMI) [Ratio] 25.82 kg/m2 Tono Birch MD Work Phone: [facility] 08-19-2025 15:36-0400 Body weight 72.58 kg Tono Birch MD Work Phone: [facility] 08-16-2025 11:26-0400 Body height 165.[address] Jacob Jennings DO Work Phone: [facility] 08-16-2025 11:26-0400 Body mass index (BMI) [Ratio] 30.3 kg/m2 Dr. Jacob Jennings DO Work Phone: [facility] 08-16-2025 11:26-0400 Body temperature 98.1 [degF] Dr. Jacob Jennings DO Work Phone: [facility] 08-16-2025 11:26-0400 Body weight 82.[address] Jacob Jennings DO Work Phone: [facility] 08-16-2025 11:26-0400 Diastolic blood pressure 72 mm[Hg] Dr. Jacob Jennings DO Work Phone: [facility] 08-16-2025 11:26-0400 Heart rate 75 /min Dr. Jacob Jennings DO Work Phone: [facility] 08-16-2025 11:26-0400 Respiratory rate 18 /min Dr. Jacob Jennings DO Work Phone: [facility] 08-16-2025 11:26-0400 SaO2% (BldA) [Mass fraction] 91 % Dr. Jacob Jennings DO Work Phone: [facility] 08-16-2025 11:26-0400 Systolic blood pressure 150 mm[Hg] Dr. Jacob Jennings DO Work Phone: [facility] 08-04-2025 11:48-0400 Body height 165.[address] Jacob Jennings DO Work Phone: [facility] 08-04-2025 11:48-0400 Body mass index (BMI) [Ratio] 30.7 kg/m2 Dr. Jacob Jennings DO Work Phone: [facility] 08-04-2025 11:48-0400 Body temperature 98.4 [degF] Dr. Jacob Jennings DO Work Phone: [facility] 08-04-2025 11:48-0400 Body weight 83.[address] Jacob Jennings DO Work Phone: [facility] 08-04-2025 11:48-0400 Diastolic blood pressure 70 mm[Hg] Dr. Jacob Jennings DO Work Phone: [facility] 08-04-2025 11:48-0400 Heart rate 70 /min Dr. Jacob Jennings DO Work Phone: [facility] 08-04-2025 11:48-0400 Respiratory rate 16 /min Dr. Jacob Jennings DO Work Phone: [facility] 08-04-2025 11:48-0400 SaO2% (BldA) [Mass fraction] 95 % Dr. Jacob Jennings DO Work Phone: [facility] 08-04-2025 11:48-0400 Systolic blood pressure 132 mm[Hg] Dr. Jacob Jennings DO Work Phone: [facility] 07-26-2025 10:16-0400 Body height 165.[address] Jacob Jennings DO Work Phone: [facility] 07-26-2025 10:16-0400 Body mass index (BMI) [Ratio] 30.6 kg/m2 Dr. Jacob Jennings DO Work Phone: [facility] 07-26-2025 10:16-0400 Body temperature 99.3 [degF] Dr. Jacob Jennings DO Work Phone: [facility] 07-26-2025 10:16-0400 Body weight 83.[address] Jacob Jennings DO Work Phone: [facility] 07-26-2025 10:16-0400 Diastolic blood pressure 75 mm[Hg] Dr. Jacob Jennings DO Work Phone: [facility] 07-26-2025 10:16-0400 Heart rate 76 /min Dr. Jacob Jennings DO Work Phone: [facility] 07-26-2025 10:16-0400 Respiratory rate 18 /min Dr. Jacob Jennings DO Work Phone: [facility] 07-26-2025 10:16-0400 SaO2% (BldA) [Mass fraction] 96 % Dr. Jacob Jennings DO Work Phone: [facility] 07-26-2025 10:16-0400 Systolic blood pressure 149 mm[Hg] Dr. Jacob Jennings DO Work Phone: [facility] 07-05-2025 13:19-0400 Body height 165.[address] Jacob Jennings DO Work Phone: [facility] 07-05-2025 13:19-0400 Body mass index (BMI) [Ratio] 30.1 kg/m2 Dr. Jacob Jennings DO Work Phone: [facility] 07-05-2025 13:19-0400 Body temperature 99 [degF] Dr. Jacob Jennings DO Work Phone: [facility] 07-05-2025 13:19-0400 Body weight 82.[address] Jacob Jennings DO Work Phone: [facility] 07-05-2025 13:19-0400 Diastolic blood pressure 80 mm[Hg] Dr. Jacob Jennings DO Work Phone: [facility] 07-05-2025 13:19-0400 Heart rate 75 /min Dr. Jacob Jennings DO Work Phone: [facility] 07-05-2025 13:19-0400 Respiratory rate 18 /min Dr. Jacob Jennings DO Work Phone: [facility] 07-05-2025 13:19-0400 SaO2% (BldA) [Mass fraction] 95 % Dr. Jacob Jennings DO Work Phone: [facility] 07-05-2025 13:19-0400 Systolic blood pressure 135 mm[Hg] Dr. Jacob Jennings DO Work Phone: [facility] 06-28-2025 15:22-0400 Body temperature 98 [degF] Dr. Jacob Jennings DO Work Phone: [facility] 06-28-2025 15:22-0400 Diastolic blood pressure 60 mm[Hg] Dr. Jacob Jennings DO Work Phone: [facility] 06-28-2025 15:22-0400 Heart rate 70 /min Dr. Jacob Jennings DO Work Phone: [facility] 06-28-2025 15:22-0400 Respiratory rate 14 /min Dr. Jacob Jennings DO Work Phone: [facility] 06-28-2025 15:22-0400 SaO2% (BldA) [Mass fraction] 97 % Dr. Jacob Jennings DO Work Phone: [facility] 06-28-2025 15:22-0400 Systolic blood pressure 134 mm[Hg] Dr. Jacob Jennings DO Work Phone: [facility] 06-28-2025 14:40-0400 Body height 165.[address] Jacob Jennings DO Work Phone: [facility] 06-15-2025 11:13-0400 Body height 165.[address] Jacob Jennings DO Work Phone: [facility] 06-15-2025 11:13-0400 Body mass index (BMI) [Ratio] 29.2 kg/m2 Dr. Jacob Jennings DO Work Phone: [facility] 06-15-2025 11:13-0400 Body temperature 98.8 [degF] Dr. Jacob Jennings DO Work Phone: [facility] 06-15-2025 11:13-0400 Body weight 79.[address] Jacob Jennings DO Work Phone: [facility] 06-15-2025 11:13-0400 Diastolic blood pressure 71 mm[Hg] Dr. Jacob Jennings DO Work Phone: [facility] 06-15-2025 11:13-0400 Heart rate 71 /min Dr. Jacob Jennings DO Work Phone: [facility] 06-15-2025 11:13-0400 Respiratory rate 18 /min Dr. Jacob Jennings DO Work Phone: [facility] 06-15-2025 11:13-0400 SaO2% (BldA) [Mass fraction] 93 % Dr. Jacob Jennings DO Work Phone: [facility] 06-15-2025 11:13-0400 Systolic blood pressure 154 mm[Hg] Dr. Jacob Jennings DO Work Phone: [facility] 06-09-2025 08:35-0400 Body mass index (BMI) [Ratio] 29.7 kg/m2 Dr. Jacob Jennings DO Work Phone: [facility] 06-09-2025 08:35-0400 Body temperature 98.2 [degF] Dr. Jacob Jennings DO Work Phone: [facility] 06-09-2025 08:35-0400 Body weight 81.[address] Jacob Jennings DO Work Phone: [facility] 06-09-2025 08:35-0400 Diastolic blood pressure 61 mm[Hg] Dr. Jacob Jennings DO Work Phone: [facility] 06-09-2025 08:35-0400 Heart rate 79 /min Dr. Jacob Jennings DO Work Phone: [facility] 06-09-2025 08:35-0400 Respiratory rate 18 /min Dr. Jacob Jennings DO Work Phone: [facility] 06-09-2025 08:35-0400 SaO2% (BldA) [Mass fraction] 96 % Dr. Jacob Jennings DO Work Phone: [facility] 06-09-2025 08:35-0400 Systolic blood pressure 128 mm[Hg] Dr. Jacob Jennings DO Work Phone: [facility] 05-24-2025 10:33-0400 Body height 165.[address] Jacob Jennings DO Work Phone: [facility] 05-24-2025 10:33-0400 Body mass index (BMI) [Ratio] 29.5 kg/m2 Dr. Jacob Jennings DO Work Phone: [facility] 05-24-2025 10:33-0400 Body temperature 99.2 [degF] Dr. Jacob Jennings DO Work Phone: [facility] 05-24-2025 10:33-0400 Body weight 80.[address] Jacob Jennings DO Work Phone: [facility] 05-24-2025 10:33-0400 Diastolic blood pressure 60 mm[Hg] Dr. Jacob Jennings DO Work Phone: [facility] 05-24-2025 10:33-0400 Heart rate 73 /min Dr. Jacob Jennings DO Work Phone: [facility] 05-24-2025 10:33-0400 Respiratory rate 16 /min Dr. Jacob Jennings DO Work Phone: [facility] 05-24-2025 10:33-0400 SaO2% (BldA) [Mass fraction] 92 % Dr. Jacob Jennings DO Work Phone: [facility] 05-24-2025 10:33-0400 Systolic blood pressure 118 mm[Hg] Dr. Jacob Jennings DO Work Phone: [facility] 05-23-2025 11:01-0400 Diastolic blood pressure 70 mm[Hg] Francois Acevedo MD Work Phone: [facility] 05-23-2025 11:01-0400 Systolic blood pressure 128 mm[Hg] Francois Acevedo MD Work Phone: [facility] 05-23-2025 10:46-0400 Body height 165.1 cm Francois Acevedo MD Work Phone: [facility] 05-23-2025 10:46-0400 Body mass index (BMI) [Ratio] 29.46 kg/m2 Francois Acevedo MD Work Phone: [facility] 05-23-2025 10:46-0400 Body weight 80.3 kg Francois Acevedo MD Work Phone: [facility] 05-23-2025 10:46-0400 Heart rate 70 /min Francois Acevedo MD Work Phone: [facility] 05-23-2025 10:46-0400 Respiratory rate 16 /min Francois Acevedo MD Work Phone: [facility] 05-23-2025 10:46-0400 SaO2% (BldA) [Mass fraction] 95 % Francois Acevedo MD Work Phone: [facility] 05-02-2025 10:40-0400 Body height 165.[address] Jacob Jennings DO Work Phone: [facility] 05-02-2025 10:40-0400 Body mass index (BMI) [Ratio] 28.4 kg/m2 Dr. Jacob Jennings DO Work Phone: [facility] 05-02-2025 10:40-0400 Body temperature 98.8 [degF] Dr. Jacob Jennings DO Work Phone: [facility] 05-02-2025 10:40-0400 Body weight 77.[address] Jacob Jennings DO Work Phone: [facility] 05-02-2025 10:40-0400 Diastolic blood pressure 65 mm[Hg] Dr. Jacob Jennings DO Work Phone: [facility] 05-02-2025 10:40-0400 Heart rate 73 /min Dr. Jacob Jennings DO Work Phone: [facility] 05-02-2025 10:40-0400 Respiratory rate 18 /min Dr. Jacob Jennings DO Work Phone: [facility] 05-02-2025 10:40-0400 SaO2% (BldA) [Mass fraction] 94 % Dr. Jacob Jennings DO Work Phone: [facility] 05-02-2025 10:40-0400 Systolic blood pressure 127 mm[Hg] Dr. Jacob Jennings DO Work Phone: [facility] 04-18-2025 15:46-0400 Body height 165.1 cm Jacob Jennings DO Work Phone: [facility] 04-18-2025 15:46-0400 Body mass index (BMI) [Ratio] 28.62 kg/m2 Jacob Jennings DO Work Phone: [facility] 04-18-2025 15:46-0400 Body temperature 97.9 [degF] Jacob Jennings DO Work Phone: [facility] 04-18-2025 15:46-0400 Body weight 78.02 kg Jacob Jennings DO Work Phone: [facility] 04-18-2025 15:46-0400 Diastolic blood pressure 70 mm[Hg] Jacob Jennings DO Work Phone: [facility] 04-18-2025 15:46-0400 Heart rate 88 /min Jacob Jennings DO Work Phone: [facility] 04-18-2025 15:46-0400 SaO2% (BldA) [Mass fraction] 95 % Jacob Jennings DO Work Phone: [facility] 04-18-2025 15:46-0400 Systolic blood pressure 130 mm[Hg] Jacob Jennings DO Work Phone: [facility] 04-12-2025 13:32-0400 Body height 165.[address] Jacob Jennings DO Work Phone: [facility] 04-12-2025 13:32-0400 Body mass index (BMI) [Ratio] 28.4 kg/m2 Dr. Jacob Jennings DO Work Phone: [facility] 04-12-2025 13:32-0400 Body temperature 99.2 [degF] Dr. Jacob Jennings DO Work Phone: [facility] 04-12-2025 13:32-0400 Body weight 77.[address] Jacob Jennings DO Work Phone: [facility] 04-12-2025 13:32-0400 Diastolic blood pressure 68 mm[Hg] Dr. Jacob Jennings DO Work Phone: [facility] 04-12-2025 13:32-0400 Heart rate 75 /min Dr. Jacob Jennings DO Work Phone: [facility] 04-12-2025 13:32-0400 Respiratory rate 16 /min Dr. Jacob Jennings DO Work Phone: [facility] 04-12-2025 13:32-0400 SaO2% (BldA) [Mass fraction] 93 % Dr. Jacob Jennings DO Work Phone: [facility] 04-12-2025 13:32-0400 Systolic blood pressure 125 mm[Hg] Dr. Jacob Jennings DO Work Phone: [facility] 03-29-2025 11:21-0400 Body height 165.[address] Jacob Jennings DO Work Phone: [facility] 03-29-2025 11:21-0400 Body mass index (BMI) [Ratio] 28.8 kg/m2 Dr. Jacob Jennings DO Work Phone: [facility] 03-29-2025 11:21-0400 Body temperature 98.8 [degF] Dr. Jacob Jennings DO Work Phone: [facility] 03-29-2025 11:21-0400 Body weight 78.[address] Jacob Jennings DO Work Phone: [facility] 03-29-2025 11:21-0400 Diastolic blood pressure 70 mm[Hg] Dr. Jacob Jennings DO Work Phone: [facility] 03-29-2025 11:21-0400 Heart rate 80 /min Dr. Jacob Jennings DO Work Phone: [facility] 03-29-2025 11:21-0400 Respiratory rate 18 /min Dr. Jacob Jennings DO Work Phone: [facility] 03-29-2025 11:21-0400 SaO2% (BldA) [Mass fraction] 92 % Dr. Jacob Jennings DO Work Phone: [facility] 03-29-2025 11:21-0400 Systolic blood pressure 137 mm[Hg] Dr. Jacob Jennings DO Work Phone: [facility] 03-24-2025 15:35-0400 Inhaled oxygen flow rate 3 L/min Dr. Jacob Jennings DO Work Phone: [facility] 03-24-2025 15:35-0400 SaO2% (BldA) [Mass fraction] 94 % Dr. Jacob Jennings DO Work Phone: [facility] 03-24-2025 14:46-0400 Body temperature 98.6 [degF] Dr. Jacob Jennings DO Work Phone: [facility] 03-24-2025 14:46-0400 Diastolic blood pressure 59 mm[Hg] Dr. Jacob Jennings DO Work Phone: [facility] 03-24-2025 14:46-0400 Heart rate 85 /min Dr. Jacob Jennings DO Work Phone: [facility] 03-24-2025 14:46-0400 Respiratory rate 18 /min Dr. Jacob Jennings DO Work Phone: [facility] 03-24-2025 14:46-0400 Systolic blood pressure 114 mm[Hg] Dr. Jacob Jennings DO Work Phone: [facility] 03-24-2025 04:41-0400 Body mass index (BMI) [Ratio] 29.7 kg/m2 Dr. Jacob Jennings DO Work Phone: [facility] 03-24-2025 04:41-0400 Body weight 81.[address] Jacob Jennings DO Work Phone: [facility] 03-23-2025 13:57-0400 Body height 165.[address] Jacob Jennings DO Work Phone: [facility] 03-21-2025 17:14-0400 Diastolic blood pressure 47 mm[Hg] Dr. Jacob Jennings DO Work Phone: [facility] 03-21-2025 17:14-0400 Heart rate 86 /min Dr. Jacob Jennings DO Work Phone: [facility] 03-21-2025 17:14-0400 Inhaled oxygen flow rate 2 L/min Dr. Jacob Jennings DO Work Phone: [facility] 03-21-2025 17:14-0400 Respiratory rate 16 /min Dr. Jacob Jennings DO Work Phone: [facility] 03-21-2025 17:14-0400 SaO2% (BldA) [Mass fraction] 94 % Dr. Jacob Jennings DO Work Phone: [facility] 03-21-2025 17:14-0400 Systolic blood pressure 108 mm[Hg] Dr. Jacob Jennings DO Work Phone: [facility] 03-21-2025 16:22-0400 Body temperature 98.2 [degF] Dr. Jacob Jennings DO Work Phone: [facility] 03-21-2025 09:47-0400 Body mass index (BMI) [Ratio] 29.2 kg/m2 Dr. Jacob Jennings DO Work Phone: [facility] 03-21-2025 09:47-0400 Body weight 79.[address] Jacob Jennings DO Work Phone: [facility] 03-21-2025 09:45-0400 Body height 165.[address] Jacob Jennings DO Work Phone: [facility] 03-15-2025 10:32-0400 Body mass index (BMI) [Ratio] 29 kg/m2 Dr. Jacob Jennings DO Work Phone: [facility] 03-15-2025 10:32-0400 Body temperature 98 [degF] Dr. Jacob Jennings DO Work Phone: [facility] 03-15-2025 10:32-0400 Body weight 79.[address] Jacob Jennings DO Work Phone: [facility] 03-15-2025 10:32-0400 Diastolic blood pressure 49 mm[Hg] Dr. Jacob Jennings DO Work Phone: [facility] 03-15-2025 10:32-0400 Heart rate 81 /min Dr. Jacob Jennings DO Work Phone: [facility] 03-15-2025 10:32-0400 Respiratory rate 16 /min Dr. Jacob Jennings DO Work Phone: [facility] 03-15-2025 10:32-0400 SaO2% (BldA) [Mass fraction] 94 % Dr. Jacob Jennings DO Work Phone: [facility] 03-15-2025 10:32-0400 Systolic blood pressure 104 mm[Hg] Dr. Jacob Jennings DO Work Phone: [facility] 03-15-2025 09:43-0400 Body temperature 98 [degF] Dr. Jacob Jennings DO Work Phone: [facility] 03-15-2025 09:43-0400 Diastolic blood pressure 49 mm[Hg] Dr. Jacob Jennings DO Work Phone: [facility] 03-15-2025 09:43-0400 Heart rate 81 /min Dr. Jacob Jennings DO Work Phone: [facility] 03-15-2025 09:43-0400 Respiratory rate 16 /min Dr. Jacob Jennings DO Work Phone: [facility] 03-15-2025 09:43-0400 SaO2% (BldA) [Mass fraction] 94 % Dr. Jacob Jennings DO Work Phone: [facility] 03-15-2025 09:43-0400 Systolic blood pressure 104 mm[Hg] Dr. Jacob Jennings DO Work Phone: [facility] 03-15-2025 09:37-0400 Body mass index (BMI) [Ratio] 29 kg/m2 Dr. Jacob Jennings DO Work Phone: [facility] 02-21-2025 14:32-0400 Body height 165.1 cm Jacob Jennings DO Work Phone: [facility] 02-21-2025 14:32-0400 Body mass index (BMI) [Ratio] 29.82 kg/m2 Jacob Jennings DO Work Phone: [facility] 02-21-2025 14:32-0400 Body temperature 100.2 [degF] Jacob Jennings DO Work Phone: [facility] 02-21-2025 14:32-0400 Body weight 81.28 kg Jacob Jennings DO Work Phone: [facility] 02-21-2025 14:32-0400 Diastolic blood pressure 64 mm[Hg] Jacob Jennings DO Work Phone: [facility] 02-21-2025 14:32-0400 Heart rate 90 /min Jacob Jennings DO Work Phone: [facility] 02-21-2025 14:32-0400 SaO2% (BldA) [Mass fraction] 92 % Jacob Jennings DO Work Phone: [facility] 02-21-2025 14:32-0400 Systolic blood pressure 110 mm[Hg] Jacob Jennings DO Work Phone: [facility] 02-01-2025 10:35-0400 Body mass index (BMI) [Ratio] 29.7 kg/m2 Dr. Jacob Jennings DO Work Phone: [facility] 02-01-2025 10:35-0400 Body temperature 97.9 [degF] Dr. Jacob Jennings DO Work Phone: [facility] 02-01-2025 10:35-0400 Body weight 81.[address] Jacob Jennings DO Work Phone: [facility] 02-01-2025 10:35-0400 Diastolic blood pressure 62 mm[Hg] Dr. Jacob Jennings DO Work Phone: [facility] 02-01-2025 10:35-0400 Heart rate 72 /min Dr. Jacob Jennings DO Work Phone: [facility] 02-01-2025 10:35-0400 Respiratory rate 16 /min Dr. Jacob Jennings DO Work Phone: [facility] 02-01-2025 10:35-0400 SaO2% (BldA) [Mass fraction] 95 % Dr. Jacob Jennings DO Work Phone: [facility] 02-01-2025 10:35-0400 Systolic blood pressure 114 mm[Hg] Dr. Jacob Jennings DO Work Phone: [facility] 01-18-2025 16:00-0400 Body temperature 98.3 [degF] Dr. Jacob Jennings DO Work Phone: [facility] 01-18-2025 16:00-0400 Diastolic blood pressure 57 mm[Hg] Dr. Jacob Jennings DO Work Phone: [facility] 01-18-2025 16:00-0400 Heart rate 111 /min Dr. Jacob Jennings DO Work Phone: [facility] 01-18-2025 16:00-0400 Inhaled oxygen flow rate 2 L/min Dr. Jacob Jennings DO Work Phone: [facility] 01-18-2025 16:00-0400 Respiratory rate 20 /min Dr. Jacob Jennings DO Work Phone: [facility] 01-18-2025 16:00-0400 SaO2% (BldA) [Mass fraction] 92 % Dr. Jacob Jennings DO Work Phone: [facility] 01-18-2025 16:00-0400 Systolic blood pressure 121 mm[Hg] Dr. Jacob Jennings DO Work Phone: [facility] 01-18-2025 05:35-0400 Body mass index (BMI) [Ratio] 29.7 kg/m2 Dr. Jacob Jennings DO Work Phone: [facility] 01-18-2025 05:35-0400 Body weight 81.[address] Jacob Jennings DO Work Phone: [facility] 01-17-2025 16:41-0400 Inhaled oxygen concentration 48 % Dr. Jacob Jennings DO Work Phone: [facility] 01-07-2025 05:00-0500 Body temperature 99.8 [degF] Dr. Jacob Jennings DO Work Phone: [facility] 01-07-2025 05:00-0500 Diastolic blood pressure 64 mm[Hg] Dr. Jacob Jennings DO Work Phone: [facility] 01-07-2025 05:00-0500 Heart rate 89 /min Dr. Jacob Jennings DO Work Phone: [facility] 01-07-2025 05:00-0500 Inhaled oxygen flow rate 2 L/min Dr. Jacob Jennings DO Work Phone: [facility] 01-07-2025 05:00-0500 Respiratory rate 18 /min Dr. Jacob Jennings DO Work Phone: [facility] 01-07-2025 05:00-0500 SaO2% (BldA) [Mass fraction] 94 % Dr. Jacob Jennings DO Work Phone: [facility] 01-07-2025 05:00-0500 Systolic blood pressure 115 mm[Hg] Dr. Jacob Jennings DO Work Phone: [facility] 01-07-2025 02:22-0500 Body mass index (BMI) [Ratio] 31.8 kg/m2 Dr. Jacob Jennings DO Work Phone: [facility] 01-07-2025 02:22-0500 Body weight 86.[address] Jacob Jennings DO Work Phone: [facility] 12-30-2024 10:30-0500 Diastolic blood pressure 78 mm[Hg] Jacob Jennings DO Work Phone: [facility] 12-30-2024 10:30-0500 Heart rate 68 /min Jacob Jennings DO Work Phone: [facility] 12-30-2024 10:30-0500 Respiratory rate 14 /min Jacob Jennings DO Work Phone: [facility] 12-30-2024 10:30-0500 Systolic blood pressure 118 mm[Hg] Jacob Jennings DO Work Phone: [facility] 12-30-2024 09:57-0500 Body height 165.1 cm Jacob Jennings DO Work Phone: [facility] 12-30-2024 09:57-0500 Body mass index (BMI) [Ratio] 33.95 kg/m2 Jacob Jennings DO Work Phone: [facility] 12-30-2024 09:57-0500 Body temperature 98.01 [degF] Jacob Jennings DO Work Phone: [facility] 12-30-2024 09:57-0500 Body weight 92.53 kg Jacob Jennings DO Work Phone: [facility] 12-30-2024 09:57-0500 SaO2% (BldA) [Mass fraction] 94 % Jacob Jennings DO Work Phone: [facility] 12-21-2024 09:28-0500 Body mass index (BMI) [Ratio] 34.9 kg/m2 Dr. Jacob Jennings DO Work Phone: [facility] 12-21-2024 09:28-0500 Body temperature 98.5 [degF] Dr. Jacob Jennings DO Work Phone: [facility] 12-21-2024 09:28-0500 Body weight 95.[address] Jacob Jennings DO Work Phone: [facility] 12-21-2024 09:28-0500 Diastolic blood pressure 64 mm[Hg] Dr. Jacob Jennings DO Work Phone: [facility] 12-21-2024 09:28-0500 Heart rate 76 /min Dr. Jacob Jennings DO Work Phone: [facility] 12-21-2024 09:28-0500 Respiratory rate 18 /min Dr. Jacob Jennings DO Work Phone: [facility] 12-21-2024 09:28-0500 SaO2% (BldA) [Mass fraction] 97 % Dr. Jacob Jennings DO Work Phone: [facility] 12-21-2024 09:28-0500 Systolic blood pressure 136 mm[Hg] Dr. Jacob Jennings DO Work Phone: [facility] 12-16-2024 14:13-0500 Body temperature 97.3 [degF] Dr. Jacob Jennings DO Work Phone: [facility] 12-16-2024 14:13-0500 Diastolic blood pressure 64 mm[Hg] Dr. Jacob Jennings DO Work Phone: [facility] 12-16-2024 14:13-0500 Heart rate 87 /min Dr. Jacob Jennings DO Work Phone: [facility] 12-16-2024 14:13-0500 Respiratory rate 20 /min Dr. Jacob Jennings DO Work Phone: [facility] 12-16-2024 14:13-0500 SaO2% (BldA) [Mass fraction] 96 % Dr. Jacob Jennings DO Work Phone: [facility] 12-16-2024 14:13-0500 Systolic blood pressure 137 mm[Hg] Dr. Jacob Jennings DO Work Phone: [facility] 12-16-2024 03:58-0500 Body mass index (BMI) [Ratio] 34 kg/m2 Dr. Jacob Jennings DO Work Phone: [facility] 12-16-2024 03:58-0500 Body weight 92.[address] Jacob Jennings DO Work Phone: [facility] 12-15-2024 20:30-0500 Inhaled oxygen flow rate 2 L/min Dr. Jacob Jennings DO Work Phone: [facility] 12-06-2024 11:04-0500 Body height 165.1 cm Jacob Jennings DO Work Phone: [facility] 12-06-2024 11:04-0500 Body mass index (BMI) [Ratio] 35.54 kg/m2 Jacob Jennings DO Work Phone: [facility] 12-06-2024 11:04-0500 Body temperature 98.1 [degF] Jacob Jennings DO Work Phone: [facility] 12-06-2024 11:04-0500 Body weight 96.89 kg Jacob Jennings DO Work Phone: [facility] 12-06-2024 11:04-0500 Diastolic blood pressure 67 mm[Hg] Jacob Jennings DO Work Phone: [facility] 12-06-2024 11:04-0500 Heart rate 90 /min Jacob Jennings DO Work Phone: [facility] 12-06-2024 11:04-0500 SaO2% (BldA) [Mass fraction] 93 % Jacob Jennings DO Work Phone: [facility] 12-06-2024 11:04-0500 Systolic blood pressure 107 mm[Hg] Jacob Jennings DO Work Phone: [facility] 12-02-2024 09:21-0500 Body mass index (BMI) [Ratio] 35.6 kg/m2 Dr. Jacob Jennings DO Work Phone: [facility] 12-02-2024 09:21-0500 Body temperature 98.2 [degF] Dr. Jacob Jennings DO Work Phone: [facility] 12-02-2024 09:21-0500 Body weight 97.[address] Jacob Jennings DO Work Phone: [facility] 12-02-2024 09:21-0500 Diastolic blood pressure 72 mm[Hg] Dr. Jacob Jennings DO Work Phone: [facility] 12-02-2024 09:21-0500 Heart rate 73 /min Dr. Jacob Jennings DO Work Phone: [facility] 12-02-2024 09:21-0500 Respiratory rate 18 /min Dr. Jacob Jennings DO Work Phone: [facility] 12-02-2024 09:21-0500 SaO2% (BldA) [Mass fraction] 91 % Dr. Jacob Jennings DO Work Phone: [facility] 12-02-2024 09:21-0500 Systolic blood pressure 132 mm[Hg] Dr. Jacob Jennings DO Work Phone: [facility] 11-18-2024 09:48-0500 Body height 165.1 cm Francois Acevedo MD Work Phone: [facility] 11-18-2024 09:48-0500 Body mass index (BMI) [Ratio] 35.77 kg/m2 Francois Acevedo MD Work Phone: [facility] 11-18-2024 09:48-0500 Body weight 97.5 kg Francois Acevedo MD Work Phone: [facility] 11-18-2024 09:48-0500 Diastolic blood pressure 71 mm[Hg] Francois Acevedo MD Work Phone: [facility] 11-18-2024 09:48-0500 Heart rate 81 /min Francois Acevedo MD Work Phone: [facility] 11-18-2024 09:48-0500 Respiratory rate 16 /min Francois Acevedo MD Work Phone: [facility] 11-18-2024 09:48-0500 SaO2% (BldA) [Mass fraction] 92 % Francois Acevedo MD Work Phone: [facility] 11-18-2024 09:48-0500 Systolic blood pressure 136 mm[Hg] Francois Acevedo MD Work Phone: [facility] 10-20-2024 13:30-0500 Diastolic blood pressure 78 mm[Hg] Jacob Saldañaa DO Work Phone: [facility] 10-20-2024 13:30-0500 Systolic blood pressure 134 mm[Hg] Jacob Saldañaa DO Work Phone: [facility] 10-20-2024 12:59-0500 Body height 167.6 cm Jacob Saldañaa DO Work Phone: [facility] 10-20-2024 12:59-0500 Body mass index (BMI) [Ratio] 35.35 kg/m2 Jacob Saldañaa DO Work Phone: [facility] 10-20-2024 12:59-0500 Body temperature 99 [degF] Jacob Saldañaa DO Work Phone: [facility] 10-20-2024 12:59-0500 Body weight 99.34 kg Jacob Saldañaa DO Work Phone: [facility] 10-20-2024 12:59-0500 Heart rate 77 /min Jacob Saldañaa DO Work Phone: [facility] 10-20-2024 12:59-0500 SaO2% (BldA) [Mass fraction] 97 % Jacob Saldañaa DO Work Phone: [facility] 09-19-2024 14:35-0500 Body height 165.1 cm Jacob Saldañaa DO Work Phone: [facility] 09-19-2024 14:35-0500 Body mass index (BMI) [Ratio] 34.95 kg/m2 Jacob Anamikalla DO Work Phone: [facility] 09-19-2024 14:35-0500 Body temperature 98.8 [degF] Jacob Saldañaa DO Work Phone: [facility] 09-19-2024 14:35-0500 Body weight 95.25 kg Jacob Saldañaa DO Work Phone: [facility] 09-19-2024 14:35-0500 Diastolic blood pressure 78 mm[Hg] Jacob Saldañaa DO Work Phone: [facility] 09-19-2024 14:35-0500 Heart rate 78 /min Jacob Saldañaa DO Work Phone: [facility] 09-19-2024 14:35-0500 SaO2% (BldA) [Mass fraction] 95 % Jacob Saldañaa DO Work Phone: [facility] 09-19-2024 14:35-0500 Systolic blood pressure 130 mm[Hg] Jacob Saldañaa DO Work Phone: [facility] 05-20-2024 09:59-0400 Body height 165.1 cm Francois Acevedo MD Work Phone: [facility] 05-20-2024 09:59-0400 Body mass index (BMI) [Ratio] 34.6 kg/m2 Francois Acevedo MD Work Phone: [facility] 05-20-2024 09:59-0400 Body weight 94.3 kg Francois Acevedo MD Work Phone: [facility] 05-20-2024 09:59-0400 Diastolic blood pressure 71 mm[Hg] Francois Acevedo MD Work Phone: [facility] 05-20-2024 09:59-0400 Heart rate 72 /min Francois Acevedo MD Work Phone: [facility] 05-20-2024 09:59-0400 Respiratory rate 16 /min Francois Acevedo MD Work Phone: [facility] 05-20-2024 09:59-0400 SaO2% (BldA) [Mass fraction] 95 % Francois Acevedo MD Work Phone: [facility] 05-20-2024 09:59-0400 Systolic blood pressure 128 mm[Hg] Francois Acevedo MD Work Phone: [facility] 04-19-2024 14:03-0400 Diastolic blood pressure 76 mm[Hg] Jacob Dick Work Phone: [facility] 04-19-2024 14:03-0400 Heart rate 68 /min Jacob Jennings Work Phone: [facility] 04-19-2024 14:03-0400 Systolic blood pressure 136 mm[Hg] Jacob Anamikawhitney Work Phone: [facility] 04-19-2024 13:22-0400 Body height 165.1 cm Jacob Willsonwhitney Work Phone: [facility] 04-19-2024 13:22-0400 Body mass index (BMI) [Ratio] 34.45 kg/m2 Jacob Willsonwhitney Work Phone: [facility] 04-19-2024 13:22-0400 Body weight 93.89 kg Jacob Willsonharishpiper TAYLOR Work Phone: [facility] 04-19-2024 13:22-0400 SaO2% (BldA) [Mass fraction] 94 % Jacob Jennings DO Work Phone: [facility] 03-09-2024 13:45-0400 Body temperature 98.6 [degF] Dr. Jacob Jennings Work Phone: [facility] 03-09-2024 13:45-0400 Diastolic blood pressure 67 mm[Hg] Dr. Jacob Jennings Work Phone: [facility] 03-09-2024 13:45-0400 Heart rate 84 /min Dr. Jacob Jennings Work Phone: [facility] 03-09-2024 13:45-0400 Respiratory rate 18 /min Dr. Jacob Jennings Work Phone: [facility] 03-09-2024 13:45-0400 SaO2% (BldA) [Mass fraction] 96 % Dr. Jacob Jennings Work Phone: [facility] 03-09-2024 13:45-0400 Systolic blood pressure 146 mm[Hg] Dr. Jacob Jennings Work Phone: [facility] 03-08-2024 19:50-0400 Inhaled oxygen flow rate 2 L/min Dr. Jacob Jennings Work Phone: [facility] 03-08-2024 16:20-0400 Body height 165.[address] Jacob Jennings Work Phone: [facility] 03-08-2024 16:20-0400 Body mass index (BMI) [Ratio] 35.1 kg/m2 Dr. Jacob Jennings Work Phone: [facility] 03-08-2024 16:20-0400 Body weight 95.[address] Jacob Jennings Work Phone: [facility] 03-07-2024 11:54-0400 Body temperature 96.5 [degF] Dr. Jacob Jennings Work Phone: [facility] 03-07-2024 11:54-0400 Diastolic blood pressure 53 mm[Hg] Dr. Jacob Jennings Work Phone: [facility] 03-07-2024 11:54-0400 Heart rate 75 /min Dr. Jacob Jennings Work Phone: [facility] 03-07-2024 11:54-0400 Respiratory rate 16 /min Dr. Jacob Jennings Work Phone: [facility] 03-07-2024 11:54-0400 Systolic blood pressure 123 mm[Hg] Dr. Jacob Jennings Work Phone: [facility] 03-07-2024 09:56-0400 SaO2% (BldA) [Mass fraction] 95 % Dr. Jacob Jennings Work Phone: [facility] 03-02-2024 10:52-0400 Body height 165.[address] Jacob Jennings Work Phone: [facility] 03-02-2024 10:52-0400 Body mass index (BMI) [Ratio] 35.5 kg/m2 Dr. Jacob Jennings Work Phone: [facility] 03-02-2024 10:52-0400 Body temperature 98.8 [degF] Dr. Jacob Jennings Work Phone: 8(142)945-655473 [place] [address] 03-02-2024 10:52-0400 Body weight 96.[address] Jacob Jennings Work Phone: [facility] 03-02-2024 10:52-0400 Diastolic blood pressure 70 mm[Hg] Dr. Jacob Jennings Work Phone: [facility] 03-02-2024 10:52-0400 Heart rate 70 /min Dr. Jacob Jennings Work Phone: [facility] 03-02-2024 10:52-0400 Respiratory rate 18 /min Dr. Jacob Jennings Work Phone: [facility] 03-02-2024 10:52-0400 SaO2% (BldA) [Mass fraction] 94 % Dr. Jacob Jennings Work Phone: [facility] 03-02-2024 10:52-0400 Systolic blood pressure 124 mm[Hg] Dr. Jacob Jennnigs Work Phone: [facility] 02-19-2024 10:35-0400 Body height 165.1 cm Francois Acevedo MD Work Phone: [facility] 02-19-2024 10:35-0400 Body weight 96.6 kg Francois Acevedo MD Work Phone: [facility] 02-19-2024 10:35-0400 Diastolic blood pressure 68 mm[Hg] Francois Acevedo MD Work Phone: [facility] 02-19-2024 10:35-0400 Heart rate 81 /min Francois Acevedo MD Work Phone: [facility] 02-19-2024 10:35-0400 Respiratory rate 16 /min Francois Acevedo MD Work Phone: [facility] 02-19-2024 10:35-0400 SaO2% (BldA) [Mass fraction] 93 % Francois Acevedo MD Work Phone: [facility] 02-19-2024 10:35-0400 Systolic blood pressure 123 mm[Hg] Francois Acevedo MD Work Phone: [facility] 02-10-2024 13:38-0400 Diastolic blood pressure 64 mm[Hg] Dr. Jacob Jennings Work Phone: [facility] 02-10-2024 13:38-0400 Heart rate 74 /min Dr. Jacob Jennings Work Phone: [facility] 02-10-2024 13:38-0400 Systolic blood pressure 124 mm[Hg] Dr. Jacob Jennings Work Phone: [facility] 02-10-2024 11:41-0400 Body mass index (BMI) [Ratio] 35.6 kg/m2 Dr. Jacob Jennings Work Phone: [facility] 02-10-2024 11:41-0400 Body temperature 9.3 [degF] Dr. Jacob Jennings Work Phone: [facility] 02-10-2024 11:41-0400 Body weight 97.[address] Jacob Jennings Work Phone: [facility] 02-10-2024 11:41-0400 Diastolic blood pressure 75 mm[Hg] Dr. Jacob Jennings Work Phone: [facility] 02-10-2024 11:41-0400 Heart rate 74 /min Dr. Jacob Jennings Work Phone: [facility] 02-10-2024 11:41-0400 Respiratory rate 18 /min Dr. Jacob Jennings Work Phone: [facility] 02-10-2024 11:41-0400 SaO2% (BldA) [Mass fraction] 94 % Dr. Jacob Jennings Work Phone: [facility] 02-10-2024 11:41-0400 Systolic blood pressure 147 mm[Hg] Dr. Jacob Jennings Work Phone: [facility] 01-20-2024 11:44-0400 Respiratory rate 18 /min Dr. Jacob Jennings Work Phone: [facility] 01-20-2024 09:23-0400 Body mass index (BMI) [Ratio] 34.9 kg/m2 Dr. Jacob Jennings Work Phone: [facility] 01-20-2024 09:23-0400 Body temperature 95.6 [degF] Dr. Jacob Jennings Work Phone: [facility] 01-20-2024 09:23-0400 Body weight 95.[address] Jacob Jennings Work Phone: [facility] 01-20-2024 09:23-0400 Diastolic blood pressure 74 mm[Hg] Dr. Jacob Jennings Work Phone: [facility] 01-20-2024 09:23-0400 Heart rate 73 /min Dr. Jacob Jennings Work Phone: [facility] 01-20-2024 09:23-0400 Respiratory rate 18 /min Dr. Jacob Jennings Work Phone: [facility] 01-20-2024 09:23-0400 SaO2% (BldA) [Mass fraction] 97 % Dr. Jacob Jennings Work Phone: [facility] 01-20-2024 09:23-0400 Systolic blood pressure 136 mm[Hg] Dr. Jacob Jennings Work Phone: [facility] 01-15-2024 12:55-0500 Body height 165.[address] Jacob Jennings Work Phone: [facility] 01-15-2024 12:55-0500 Body mass index (BMI) [Ratio] 35.1 kg/m2 Dr. Jacob Jennings Work Phone: [facility] 01-15-2024 12:55-0500 Body weight 95.[address] Jacob Jennings Work Phone: [facility] 01-08-2024 10:47-0500 Body height 165.[address] Jacob Jennings Work Phone: [facility] 01-08-2024 10:47-0500 Body mass index (BMI) [Ratio] 35.1 kg/m2 Dr. Jacob Jennings Work Phone: [facility] 01-08-2024 10:47-0500 Body temperature 98 [degF] Dr. Jacob Jennings Work Phone: [facility] 01-08-2024 10:47-0500 Body weight 95.[address] Jacob Jennings Work Phone: [facility] 01-08-2024 10:47-0500 Diastolic blood pressure 78 mm[Hg] Dr. Jacob Jennings Work Phone: [facility] 01-08-2024 10:47-0500 Heart rate 74 /min Dr. Jacob Jennings Work Phone: [facility] 01-08-2024 10:47-0500 Respiratory rate 16 /min Dr. Jacob Jennings Work Phone: [facility] 01-08-2024 10:47-0500 SaO2% (BldA) [Mass fraction] 94 % Dr. Jacob Jennings Work Phone: [facility] 01-08-2024 10:47-0500 Systolic blood pressure 122 mm[Hg] Dr. Jacob Jennings Work Phone: [facility] 01-07-2024 13:55-0500 Body height 165.1 cm Jacob Jennings DO Work Phone: [facility] 01-07-2024 13:55-0500 Body mass index (BMI) [Ratio] 35.11 kg/m2 Jacob Jennings DO Work Phone: [facility] 01-07-2024 13:55-0500 Body temperature 99.7 [degF] Jacob Jennings DO Work Phone: [facility] 01-07-2024 13:55-0500 Body weight 95.71 kg Jacob Jennings DO Work Phone: [facility] 01-07-2024 13:55-0500 Diastolic blood pressure 60 mm[Hg] Jacob Jennings DO Work Phone: [facility] 01-07-2024 13:55-0500 Heart rate 77 /min Jacob Jennings DO Work Phone: [facility] 01-07-2024 13:55-0500 SaO2% (BldA) [Mass fraction] 97 % Jacob Jennings DO Work Phone: [facility] 01-07-2024 13:55-0500 Systolic blood pressure 122 mm[Hg] Jacob Jennings DO Work Phone: [facility] 12-30-2023 10:42-0500 Body mass index (BMI) [Ratio] 34.5 kg/m2 Dr. Jacob Jennings Work Phone: [facility] 12-30-2023 10:42-0500 Body temperature 98 [degF] Dr. Jacob Jennings Work Phone: [facility] 12-30-2023 10:42-0500 Body weight 94.[address] Jacob Jennings Work Phone: [facility] 12-30-2023 10:42-0500 Diastolic blood pressure 68 mm[Hg] Dr. Jacob Jennings Work Phone: [facility] 12-30-2023 10:42-0500 Heart rate 77 /min Dr. Jacob Jennings Work Phone: [facility] 12-30-2023 10:42-0500 Respiratory rate 18 /min Dr. Jacob Jennings Work Phone: [facility] 12-30-2023 10:42-0500 SaO2% (BldA) [Mass fraction] 93 % Dr. Jacob Jennings Work Phone: [facility] 12-30-2023 10:42-0500 Systolic blood pressure 123 mm[Hg] Dr. Jacob Jennings Work Phone: [facility] 12-14-2023 15:35-0500 Body temperature 99 [degF] Dr. Jacob Jennings Work Phone: [facility] 12-14-2023 15:35-0500 Diastolic blood pressure 70 mm[Hg] Dr. Jacob Jennings Work Phone: [facility] 12-14-2023 15:35-0500 Respiratory rate 16 /min Dr. Jacob Jennings Work Phone: [facility] 12-14-2023 15:35-0500 Systolic blood pressure 124 mm[Hg] Dr. Jacob Jennings Work Phone: [facility] 12-14-2023 13:50-0500 Heart rate 77 /min Dr. Jacob Jennings Work Phone: [facility] 12-14-2023 13:50-0500 SaO2% (BldA) [Mass fraction] 95 % Dr. Jacob Jennings Work Phone: [facility] 12-09-2023 10:46-0500 Body mass index (BMI) [Ratio] 33.9 kg/m2 Dr. Jacob Jennings Work Phone: [facility] 12-09-2023 10:46-0500 Body temperature 99.2 [degF] Dr. Jacob Jennings Work Phone: [facility] 12-09-2023 10:46-0500 Body weight 92.[address] Jacob Jennings Work Phone: [facility] 12-09-2023 10:46-0500 Diastolic blood pressure 70 mm[Hg] Dr. Jacob Jennings Work Phone: [facility] 12-09-2023 10:46-0500 Heart rate 80 /min Dr. Jacob Jennings Work Phone: [facility] 12-09-2023 10:46-0500 Respiratory rate 18 /min Dr. Jacob Jennings Work Phone: [facility] 12-09-2023 10:46-0500 SaO2% (BldA) [Mass fraction] 94 % Dr. Jacob Jennings Work Phone: [facility] 12-09-2023 10:46-0500 Systolic blood pressure 113 mm[Hg] Dr. Jacob Jennings Work Phone: [facility] 12-04-2023 08:31-0500 Body mass index (BMI) [Ratio] 34.1 kg/m2 Dr. Jacob Jennings Work Phone: [facility] 12-04-2023 08:31-0500 Body temperature 98 [degF] Dr. Jacob Jennings Work Phone: [facility] 12-04-2023 08:31-0500 Body weight 92.[address] Jacob Jennings Work Phone: [facility] 12-04-2023 08:31-0500 Diastolic blood pressure 62 mm[Hg] Dr. Jacob Jennings Work Phone: [facility] 12-04-2023 08:31-0500 Heart rate 73 /min Dr. Jacob Jennings Work Phone: [facility] 12-04-2023 08:31-0500 Respiratory rate 18 /min Dr. Jacob Jennings Work Phone: [facility] 12-04-2023 08:31-0500 SaO2% (BldA) [Mass fraction] 96 % Dr. Jacob Jennings Work Phone: [facility] 12-04-2023 08:31-0500 Systolic blood pressure 121 mm[Hg] Dr. Jacob Jennings Work Phone: [facility] 11-24-2023 15:15-0500 Body height 165.1 cm Em Philip PA-C Work Phone: [facility] 11-24-2023 15:15-0500 Body mass index (BMI) [Ratio] 35.11 kg/m2 Em Philip PA-C Work Phone: [facility] 11-24-2023 15:15-0500 Body temperature 98.71 [degF] Em Philip PA-C Work Phone: [facility] 11-24-2023 15:15-0500 Body weight 95.71 kg Em Philip PA-C Work Phone: [facility] 11-24-2023 15:15-0500 Diastolic blood pressure 64 mm[Hg] Em Philip PA-C Work Phone: [facility] 11-24-2023 15:15-0500 Heart rate 88 /min Em Philip PA-C Work Phone: [facility] 11-24-2023 15:15-0500 SaO2% (BldA) [Mass fraction] 95 % Em Philip PA-C Work Phone: [facility] 11-24-2023 15:15-0500 Systolic blood pressure 138 mm[Hg] Em Philip PA-C Work Phone: [facility] 11-18-2023 10:18-0500 Body mass index (BMI) [Ratio] 34.6 kg/m2 Dr. Jacob Jennings Work Phone: [facility] 11-18-2023 10:18-0500 Body temperature 99.4 [degF] Dr. Jacob Jennings Work Phone: [facility] 11-18-2023 10:18-0500 Body weight 94.[address] Jacob Jennings Work Phone: [facility] 11-18-2023 10:18-0500 Diastolic blood pressure 63 mm[Hg] Dr. Jacob Jennings Work Phone: [facility] 11-18-2023 10:18-0500 Heart rate 75 /min Dr. Jacob Jennings Work Phone: [facility] 11-18-2023 10:18-0500 Respiratory rate 20 /min Dr. Jacob Jennings Work Phone: [facility] 11-18-2023 10:18-0500 SaO2% (BldA) [Mass fraction] 94 % Dr. Jacob Jennings Work Phone: [facility] 11-18-2023 10:18-0500 Systolic blood pressure 127 mm[Hg] Dr. Jacob Jennings Work Phone: [facility] 10-28-2023 09:57-0500 Body mass index (BMI) [Ratio] 34.1 kg/m2 Dr. Jacob Jennings Work Phone: [facility] 10-28-2023 09:57-0500 Body temperature 98.9 [degF] Dr. Jacob Jennings Work Phone: [facility] 10-28-2023 09:57-0500 Body weight 93.[address] Jacob Jennings Work Phone: [facility] 10-28-2023 09:57-0500 Diastolic blood pressure 82 mm[Hg] Dr. Jacob Jennings Work Phone: [facility] 10-28-2023 09:57-0500 Heart rate 79 /min Dr. Jacob Jennings Work Phone: [facility] 10-28-2023 09:57-0500 Respiratory rate 18 /min Dr. Jacob Jennings Work Phone: [facility] 10-28-2023 09:57-0500 SaO2% (BldA) [Mass fraction] 95 % Dr. Jacob Jennings Work Phone: [facility] 10-28-2023 09:57-0500 Systolic blood pressure 160 mm[Hg] Dr. Jacob Jennings Work Phone: [facility] 10-18-2023 14:50-0500 Diastolic blood pressure 76 mm[Hg] Dr. Jacob Jennings Work Phone: [facility] 10-18-2023 14:50-0500 Heart rate 88 /min Dr. Jacob Jennings Work Phone: [facility] 10-18-2023 14:50-0500 Systolic blood pressure 164 mm[Hg] Dr. Jacob Jennings Work Phone: [facility] 10-18-2023 14:18-0500 Respiratory rate 20 /min Dr. Jacob Jennings Work Phone: [facility] 10-18-2023 14:18-0500 SaO2% (BldA) [Mass fraction] 95 % Dr. Jacbo Jennings Work Phone: [facility] 10-18-2023 09:41-0500 Body height 165.[address] Jacob Jennings Work Phone: [facility] 10-18-2023 09:41-0500 Body temperature 97.5 [degF] Dr. Jacob Jennings Work Phone: [facility] 10-07-2023 09:39-0500 Body height 165.[address] Jacob Jennings Work Phone: [facility] 10-07-2023 09:39-0500 Body mass index (BMI) [Ratio] 34.9 kg/m2 Dr. Jacob Jennings Work Phone: [facility] 10-07-2023 09:39-0500 Body temperature 98.9 [degF] Dr. Jacob Jennings Work Phone: [facility] 10-07-2023 09:39-0500 Body weight 95.[address] Jacob Jennings Work Phone: [facility] 10-07-2023 09:39-0500 Diastolic blood pressure 66 mm[Hg] Dr. Jacob Jennings Work Phone: [facility] 10-07-2023 09:39-0500 Heart rate 75 /min Dr. Jacob Jennings Work Phone: [facility] 10-07-2023 09:39-0500 Respiratory rate 16 /min Dr. Jacob Jennings Work Phone: [facility] 10-07-2023 09:39-0500 SaO2% (BldA) [Mass fraction] 94 % Dr. Jacob Jennings Work Phone: [facility] 10-07-2023 09:39-0500 Systolic blood pressure 123 mm[Hg] Dr. Jacob Jennings Work Phone: [facility] 10-05-2023 09:44-0500 Diastolic blood pressure 63 mm[Hg] Dr. Jacob Jennings Work Phone: [facility] 10-05-2023 09:44-0500 Heart rate 71 /min Dr. Jacob Jennings Work Phone: [facility] 10-05-2023 09:44-0500 Respiratory rate 16 /min Dr. Jacob Jennings Work Phone: [facility] 10-05-2023 09:44-0500 Systolic blood pressure 125 mm[Hg] Dr. Jacob Jennings Work Phone: [facility] 10-05-2023 08:29-0500 Body mass index (BMI) [Ratio] 34.2 kg/m2 Dr. Jacob Jennings Work Phone: [facility] 10-05-2023 08:29-0500 Body temperature 98.1 [degF] Dr. Jacob Jennings Work Phone: [facility] 10-05-2023 08:29-0500 SaO2% (BldA) [Mass fraction] 94 % Dr. Jacob Jennings Work Phone: 2(007)438-771573 [place] [address] 09-16-2023 09:57-0500 Body mass index (BMI) [Ratio] 34.2 kg/m2 Dr. Jacob Jennings Work Phone: 7(475)125-804412 [address] 09-16-2023 09:57-0500 Body temperature 99.1 [degF] Dr. Jacob Jennings Work Phone: 3(567)338-838406 [place] [address] 09-16-2023 09:57-0500 Body weight 93.[address] Jacob Jennings Work Phone: 6(812)907-742573 [place] [address] 09-16-2023 09:57-0500 Diastolic blood pressure 62 mm[Hg] Dr. Jacob Jennings Work Phone: 9(509)037-283473 [place] [address] 09-16-2023 09:57-0500 Heart rate 81 /min Dr. Jacob Jennings Work Phone: 5(421)952-293273 [place] [address] 09-16-2023 09:57-0500 Respiratory rate 18 /min Dr. Jacob Jennings Work Phone: [facility] 09-16-2023 09:57-0500 Systolic blood pressure 114 mm[Hg] Dr. Jacob Jennings Work Phone: [facility] 09-02-2023 12:06-0400 Inhaled oxygen flow rate 4 L/min Dr. Jacob Jennings Work Phone: [facility] 09-02-2023 12:06-0400 SaO2% (BldA) [Mass fraction] 92 % Dr. Jacob Jennings Work Phone: [facility] 09-02-2023 12:05-0400 Heart rate 93 /min Dr. Jacob Jennings Work Phone: [facility] 09-02-2023 06:52-0400 Body height 165.[address] Jacob Jennings Work Phone: [facility] 09-02-2023 06:52-0400 Body mass index (BMI) [Ratio] 33.5 kg/m2 Dr. Jacob Jennings Work Phone: [facility] 09-02-2023 06:52-0400 Body temperature 97.9 [degF] Dr. Jacob Jennings Work Phone: [facility] 09-02-2023 06:52-0400 Body weight 91.[address] Jacob Jennings Work Phone: [facility] 09-02-2023 06:52-0400 Diastolic blood pressure 64 mm[Hg] Dr. Jacob Jennings Work Phone: [facility] 09-02-2023 06:52-0400 Respiratory rate 20 /min Dr. Jacob Jennings Work Phone: [facility] 09-02-2023 06:52-0400 Systolic blood pressure 107 mm[Hg] Dr. Jacob Jennings Work Phone: [facility] 08-26-2023 09:55-0400 Body mass index (BMI) [Ratio] 33.7 kg/m2 Dr. Jacob Jennings Work Phone: [facility] 08-26-2023 09:55-0400 Body temperature 98.3 [degF] Dr. Jacob Jennings Work Phone: [facility] 08-26-2023 09:55-0400 Body weight 92.[address] Jacob Jennings Work Phone: [facility] 08-26-2023 09:55-0400 Diastolic blood pressure 83 mm[Hg] Dr. Jacob Jennings Work Phone: [facility] 08-26-2023 09:55-0400 Heart rate 75 /min Dr. Jacob Jennings Work Phone: [facility] 08-26-2023 09:55-0400 Respiratory rate 18 /min Dr. Jacob Jennings Work Phone: [facility] 08-26-2023 09:55-0400 SaO2% (BldA) [Mass fraction] 92 % Dr. Jacob Jennings Work Phone: [facility] 08-26-2023 09:55-0400 Systolic blood pressure 118 mm[Hg] Dr. Jacob Jennings Work Phone: [facility] 08-21-2023 11:46-0400 Diastolic blood pressure 66 mm[Hg] Dr. Jacob Jennings Work Phone: [facility] 08-21-2023 11:46-0400 Systolic blood pressure 125 mm[Hg] Dr. Jacob Jennings Work Phone: [facility] 08-21-2023 11:38-0400 Body mass index (BMI) [Ratio] 33.3 kg/m2 Dr. Jacob Jennings Work Phone: [facility] 08-21-2023 11:38-0400 Body weight 90.[address] Jacob Jennings Work Phone: [facility] 08-21-2023 11:38-0400 Heart rate 94 /min Dr. Jacob Jennings Work Phone: [facility] 08-21-2023 11:38-0400 Respiratory rate 18 /min Dr. Jacob Jennings Work Phone: [facility] 08-21-2023 11:38-0400 SaO2% (BldA) [Mass fraction] 96 % Dr. Jacob Jennings Work Phone: [facility] 08-07-2023 10:140400 Body height 165.1 cm Francois Acevedo MD Work Phone: [facility] 08-07-2023 10:140400 Body weight 92.3 kg Francois Acevedo MD Work Phone: [facility] 08-07-2023 10:140400 Diastolic blood pressure 74 mm[Hg] Francois Acevedo MD Work Phone: [facility] 08-07-2023 10:140400 Heart rate 86 /min Francois Acevedo MD Work Phone: [facility] 08-07-2023 10:140400 Respiratory rate 20 /min Francois Acevedo MD Work Phone: [facility] 08-07-2023 10:140400 SaO2% (BldA) [Mass fraction] 97 % Francois Acevedo MD Work Phone: [facility] 08-07-2023 10:140400 Systolic blood pressure 148 mm[Hg] Francois Acevedo MD Work Phone: [facility] 08-05-2023 13:28-0400 Body temperature 97.7 [degF] Dr. Jacob Jennings Work Phone: [facility] 08-05-2023 13:28-0400 Diastolic blood pressure 61 mm[Hg] Dr. Jacob Jennings Work Phone: [facility] 08-05-2023 13:28-0400 Heart rate 78 /min Dr. Jacob Jennings Work Phone: [facility] 08-05-2023 13:28-0400 Respiratory rate 16 /min Dr. Jacob Jennings Work Phone: [facility] 08-05-2023 13:28-0400 SaO2% (BldA) [Mass fraction] 94 % Dr. Jacob Jennings Work Phone: [facility] 08-05-2023 13:28-0400 Systolic blood pressure 136 mm[Hg] Dr. Jacob Jennings Work Phone: [facility] 08-05-2023 11:06-0400 Body mass index (BMI) [Ratio] 32.9 kg/m2 Dr. Jacob Jennings Work Phone: [facility] 08-05-2023 11:06-0400 Body temperature 98.9 [degF] Dr. Jacob Jennings Work Phone: [facility] 08-05-2023 11:06-0400 Body weight 89.[address] Jacob Jennings Work Phone: [facility] 08-05-2023 11:06-0400 Diastolic blood pressure 69 mm[Hg] Dr. Jacob Jennings Work Phone: [facility] 08-05-2023 11:06-0400 Heart rate 80 /min Dr. Jacob Jennings Work Phone: [facility] 08-05-2023 11:06-0400 Respiratory rate 16 /min Dr. Jacob Jennings Work Phone: [facility] 08-05-2023 11:06-0400 SaO2% (BldA) [Mass fraction] 96 % Dr. Jacob Jennings Work Phone: [facility] 08-05-2023 11:06-0400 Systolic blood pressure 132 mm[Hg] Dr. Jacob Jennings Work Phone: [facility] 07-15-2023 11:01-0400 Body mass index (BMI) [Ratio] 32 kg/m2 Dr. Jacob Jennings Work Phone: [facility] 07-15-2023 11:01-0400 Body temperature 98.8 [degF] Dr. Jacob Jennings Work Phone: [facility] 07-15-2023 11:01-0400 Body weight 87.[address] Jacob Jennings Work Phone: [facility] 07-15-2023 11:01-0400 Diastolic blood pressure 71 mm[Hg] Dr. Jacob Jennings Work Phone: [facility] 07-15-2023 11:01-0400 Heart rate 75 /min Dr. Jacob Jennings Work Phone: [facility] 07-15-2023 11:01-0400 Respiratory rate 16 /min Dr. Jacob Jennings Work Phone: [facility] 07-15-2023 11:01-0400 SaO2% (BldA) [Mass fraction] 95 % Dr. Jacob Jennings Work Phone: [facility] 07-15-2023 11:01-0400 Systolic blood pressure 151 mm[Hg] Dr. Jacob Jennings Work Phone: [facility] 07-08-2023 13:32-0400 Body mass index (BMI) [Ratio] 33.1 kg/m2 Dr. Jacob Jennings Work Phone: [facility] 07-08-2023 13:32-0400 Body temperature 99.2 [degF] Dr. Jacob Jennings Work Phone: [facility] 07-08-2023 13:32-0400 Body weight 90.[address] Jacob Jennings Work Phone: [facility] 07-08-2023 13:32-0400 Diastolic blood pressure 67 mm[Hg] Dr. Jacob Jennings Work Phone: [facility] 07-08-2023 13:32-0400 Heart rate 79 /min Dr. Jacob Jennings Work Phone: [facility] 07-08-2023 13:32-0400 Respiratory rate 18 /min Dr. Jacob Jennings Work Phone: [facility] 07-08-2023 13:32-0400 SaO2% (BldA) [Mass fraction] 95 % Dr. Jacob Jennings Work Phone: [facility] 07-08-2023 13:32-0400 Systolic blood pressure 145 mm[Hg] Dr. Jacob Jennings Work Phone: [facility] 07-01-2023 09:34-0400 Diastolic blood pressure 48 mm[Hg] Dr. Jacob Jennings Work Phone: [facility] 07-01-2023 09:34-0400 Heart rate 70 /min Dr. Jacob Jennings Work Phone: [facility] 07-01-2023 09:34-0400 Systolic blood pressure 118 mm[Hg] Dr. Jacob Jennings Work Phone: [facility] 07-01-2023 08:53-0400 Body height 165.[address] Jacob Jennings Work Phone: [facility] 07-01-2023 08:53-0400 Body temperature 98.2 [degF] Dr. Jacob Jennings Work Phone: [facility] 07-01-2023 08:53-0400 Respiratory rate 16 /min Dr. Jacob Jennings Work Phone: [facility] 06-17-2023 15:34-0400 SaO2% (BldA) [Mass fraction] 95 % Dr. Jacob Jennings Work Phone: [facility] 06-17-2023 13:08-0400 Body mass index (BMI) [Ratio] 31.8 kg/m2 Dr. Jacob Jennings Work Phone: [facility] 06-17-2023 13:08-0400 Body temperature 99.7 [degF] Dr. Jacob Jennings Work Phone: [facility] 06-17-2023 13:08-0400 Body weight 86.[address] Jacob Jennings Work Phone: [facility] 06-17-2023 13:08-0400 Diastolic blood pressure 70 mm[Hg] Dr. Jacob Jennings Work Phone: [facility] 06-17-2023 13:08-0400 Heart rate 77 /min Dr. Jacob Jennings Work Phone: [facility] 06-17-2023 13:08-0400 Respiratory rate 18 /min Dr. Jacob Jennings Work Phone: [facility] 06-17-2023 13:08-0400 SaO2% (BldA) [Mass fraction] 93 % Dr. Jacob Jennings Work Phone: [facility] 06-17-2023 13:08-0400 Systolic blood pressure 158 mm[Hg] Dr. Jacob Jennings Work Phone: [facility] 06-09-2023 11:35-0400 Body height 165.1 cm Francois Acevedo MD Work Phone: [facility] 06-09-2023 11:35-0400 Body weight 84.1 kg Francois Acevedo MD Work Phone: [facility] 06-09-2023 11:35-0400 Diastolic blood pressure 64 mm[Hg] Francois Acevedo MD Work Phone: [facility] 06-09-2023 11:35-0400 Heart rate 85 /min Francois Acevedo MD Work Phone: [facility] 06-09-2023 11:35-0400 SaO2% (BldA) [Mass fraction] 94 % Francois Acevedo MD Work Phone: [facility] 06-09-2023 11:35-0400 Systolic blood pressure 132 mm[Hg] Francois Acevedo MD Work Phone: [facility] 05-27-2023 09:22-0400 Body mass index (BMI) [Ratio] 30.5 kg/m2 Dr. Jacob Jennings Work Phone: [facility] 05-27-2023 09:22-0400 Body temperature 98.6 [degF] Dr. Jacob Jennings Work Phone: [facility] 05-27-2023 09:22-0400 Body weight 83.[address] Jacob Jennings Work Phone: [facility] 05-27-2023 09:22-0400 Diastolic blood pressure 65 mm[Hg] Dr. Jacob Jennings Work Phone: [facility] 05-27-2023 09:22-0400 Heart rate 85 /min Dr. Jacob Jennings Work Phone: [facility] 05-27-2023 09:22-0400 Respiratory rate 18 /min Dr. Jacob Jennings Work Phone: [facility] 05-27-2023 09:22-0400 SaO2% (BldA) [Mass fraction] 96 % Dr. Jacob Jennings Work Phone: [facility] 05-27-2023 09:22-0400 Systolic blood pressure 115 mm[Hg] Dr. Jacob Jennings Work Phone: [facility] 05-21-2023 08:19-0400 Body mass index (BMI) [Ratio] 29.9 kg/m2 Dr. Jacob Jennings Work Phone: [facility] 05-21-2023 08:19-0400 Body temperature 98.7 [degF] Dr. Jacob Jennings Work Phone: [facility] 05-21-2023 08:19-0400 Body weight 81.[address] Jacob Jennings Work Phone: [facility] 05-21-2023 08:19-0400 Diastolic blood pressure 46 mm[Hg] Dr. Jacob Jennings Work Phone: [facility] 05-21-2023 08:19-0400 Heart rate 94 /min Dr. Jacob Jennings Work Phone: [facility] 05-21-2023 08:19-0400 Respiratory rate 20 /min Dr. Jacob Jennings Work Phone: [facility] 05-21-2023 08:19-0400 SaO2% (BldA) [Mass fraction] 90 % Dr. Jacob Jennings Work Phone: [facility] 05-21-2023 08:19-0400 Systolic blood pressure 94 mm[Hg] Dr. Jacob Jennings Work Phone: [facility] 05-20-2023 14:02-0400 Body height 165.1 cm Pineda Fields MD Work Phone: [facility] 05-20-2023 14:02-0400 Body mass index (BMI) [Ratio] 30.79 kg/m2 Pineda Fields MD Work Phone: [facility] 05-20-2023 14:02-0400 Body temperature 98.29 [degF] Pineda Fields MD Work Phone: [facility] 05-20-2023 14:02-0400 Body weight 83.92 kg Pineda Fields MD Work Phone: [facility] 05-20-2023 14:02-0400 Diastolic blood pressure 60 mm[Hg] Pineda Fields MD Work Phone: [facility] 05-20-2023 14:02-0400 Heart rate 87 /min Pineda Fields MD Work Phone: [facility] 05-20-2023 14:02-0400 Systolic blood pressure 119 mm[Hg] Pineda Fields MD Work Phone: [facility] 05-19-2023 08:39-0400 Body mass index (BMI) [Ratio] 29.9 kg/m2 Dr. Jacob Jennings Work Phone: [facility] 05-19-2023 08:39-0400 Body temperature 99 [degF] Dr. Jacob Jennings Work Phone: [facility] 05-19-2023 08:39-0400 Body weight 81.[address] Jacob Jennings Work Phone: [facility] 05-19-2023 08:39-0400 Diastolic blood pressure 59 mm[Hg] Dr. Jacob Jennings Work Phone: [facility] 05-19-2023 08:39-0400 Heart rate 87 /min Dr. Jacob Jennings Work Phone: [facility] 05-19-2023 08:39-0400 Respiratory rate 20 /min Dr. Jacob Jennings Work Phone: [facility] 05-19-2023 08:39-0400 SaO2% (BldA) [Mass fraction] 90 % Dr. Jacob Jennings Work Phone: [facility] 05-19-2023 08:39-0400 Systolic blood pressure 95 mm[Hg] Dr. Jacob Jennings Work Phone: [facility] 05-06-2023 14:19-0400 Diastolic blood pressure 64 mm[Hg] Dr. Jacob Jennings Work Phone: [facility] 05-06-2023 14:19-0400 Heart rate 87 /min Dr. Jacob Jennings Work Phone: [facility] 05-06-2023 14:19-0400 Respiratory rate 16 /min Dr. Jacob Jennings Work Phone: [facility] 05-06-2023 14:19-0400 SaO2% (BldA) [Mass fraction] 93 % Dr. Jacob Jennings Work Phone: [facility] 05-06-2023 14:19-0400 Systolic blood pressure 126 mm[Hg] Dr. Jacob Jennings Work Phone: [facility] 05-06-2023 12:02-0400 Inhaled oxygen flow rate 2 L/min Dr. Jacob Jennings Work Phone: [facility] 05-06-2023 09:04-0400 Body temperature 97.7 [degF] Dr. Jacob Jennings Work Phone: [facility] 05-03-2023 10:37-0400 Body height 165.[address] Jacob Jennings Work Phone: [facility] 05-03-2023 10:37-0400 Body weight 74.[address] Jacob Jennings Work Phone: [facility] 05-02-2023 16:56-0400 Body mass index (BMI) [Ratio] 29.8 kg/m2 Dr. Jacob Jennings Work Phone: [facility] 05-02-2023 15:51-0400 Body temperature 96.7 [degF] Dr. Jacob Jennings Work Phone: [facility] 05-02-2023 15:51-0400 Diastolic blood pressure 61 mm[Hg] Dr. Jacob Jennings Work Phone: [facility] 05-02-2023 15:51-0400 Heart rate 73 /min Dr. Jacob Jennings Work Phone: [facility] 05-02-2023 15:51-0400 Inhaled oxygen flow rate 3 L/min Dr. Jacob Jennings Work Phone: [facility] 05-02-2023 15:51-0400 Respiratory rate 20 /min Dr. Jacob Jennings Work Phone: [facility] 05-02-2023 15:51-0400 SaO2% (BldA) [Mass fraction] 91 % Dr. Jacob Jennings Work Phone: [facility] 05-02-2023 15:51-0400 Systolic blood pressure 122 mm[Hg] Dr. Jacob Jennings Work Phone: [facility] 05-02-2023 10:42-0400 Body height 165.[address] Jacob Jennings Work Phone: [facility] 05-02-2023 10:42-0400 Body mass index (BMI) [Ratio] 30.7 kg/m2 Dr. Jacob Jennings Work Phone: [facility] 05-02-2023 10:42-0400 Body weight 83.[address] Jacob Jennings Work Phone: [facility] 04-28-2023 10:27-0400 Body mass index (BMI) [Ratio] 31.1 kg/m2 Dr. Jacob Jennings Work Phone: [facility] 04-28-2023 10:27-0400 Body weight 84.[address] Jacob Jennings Work Phone: [facility] 04-28-2023 09:46-0400 Body mass index (BMI) [Ratio] 31.1 kg/m2 Dr. Jacob Jennings Work Phone: [facility] 04-28-2023 09:46-0400 Body temperature 98.2 [degF] Dr. Jacob Jennings Work Phone: [facility] 04-28-2023 09:46-0400 Body weight 84.[address] Jacob Jennings Work Phone: [facility] 04-28-2023 09:46-0400 Diastolic blood pressure 72 mm[Hg] Dr. Jacob Jennings Work Phone: [facility] 04-28-2023 09:46-0400 Heart rate 80 /min Dr. Jacob Jennings Work Phone: [facility] 04-28-2023 09:46-0400 Respiratory rate 18 /min Dr. Jacob Jennings Work Phone: [facility] 04-28-2023 09:46-0400 SaO2% (BldA) [Mass fraction] 94 % Dr. Jacob Jennings Work Phone: [facility] 04-28-2023 09:46-0400 Systolic blood pressure 121 mm[Hg] Dr. Jacob Jennings Work Phone: [facility] 04-27-2023 12:57-0400 Body mass index (BMI) [Ratio] 30.9 kg/m2 Dr. Jacob Jennings Work Phone: [facility] 04-27-2023 12:57-0400 Body temperature 97.3 [degF] Dr. Jacob Jennings Work Phone: [facility] 04-27-2023 12:57-0400 Body weight 84.[address] Jacob Jennings Work Phone: [facility] 04-27-2023 12:57-0400 Diastolic blood pressure 68 mm[Hg] Dr. Jacob Jennings Work Phone: [facility] 04-27-2023 12:57-0400 Heart rate 93 /min Dr. Jacob Jennings Work Phone: [facility] 04-27-2023 12:57-0400 Respiratory rate 18 /min Dr. Jacob Jennings Work Phone: [facility] 04-27-2023 12:57-0400 SaO2% (BldA) [Mass fraction] 94 % Dr. Jacob Jennings Work Phone: [facility] 04-27-2023 12:57-0400 Systolic blood pressure 142 mm[Hg] Dr. Jacob Jennings Work Phone: [facility] 04-08-2023 12:42-0400 Diastolic blood pressure 53 mm[Hg] Dr. Jacob Jennings Work Phone: [facility] 04-08-2023 12:42-0400 Heart rate 69 /min Dr. Jacob Jennings Work Phone: [facility] 04-08-2023 12:42-0400 Respiratory rate 16 /min Dr. Jacob Jennings Work Phone: [facility] 04-08-2023 12:42-0400 Systolic blood pressure 127 mm[Hg] Dr. Jacob Jennings Work Phone: [facility] 04-08-2023 08:55-0400 Body mass index (BMI) [Ratio] 31.4 kg/m2 Dr. Jacob Jennings Work Phone: [facility] 04-08-2023 08:55-0400 Body temperature 98 [degF] Dr. Jacob Jennings Work Phone: [facility] 04-08-2023 08:55-0400 Body weight 85.[address] Jacob Jennings Work Phone: [facility] 04-08-2023 08:55-0400 Diastolic blood pressure 70 mm[Hg] Dr. Jacob Jennings Work Phone: [phone] [place] [address] 04-08-2023 08:55-0400 Heart rate 68 /min Dr. Jacob Jennings Work Phone: [facility] 04-08-2023 08:55-0400 Respiratory rate 18 /min Dr. Jacob Jennings Work Phone: [facility] 04-08-2023 08:55-0400 SaO2% (BldA) [Mass fraction] 96 % Dr. Jacob Jennings Work Phone: [facility] 04-08-2023 08:55-0400 Systolic blood pressure 131 mm[Hg] Dr. Jacob Jennings Work Phone: [facility] 04-01-2023 09:38-0400 Body mass index (BMI) [Ratio] 30.7 kg/m2 Dr. Jacob Jennings Work Phone: [facility] 04-01-2023 09:38-0400 Body temperature 97.5 [degF] Dr. Jacob Jennings Work Phone: [facility] 04-01-2023 09:38-0400 Body weight 83.[address] Jacob Jennings Work Phone: [facility] 04-01-2023 09:38-0400 Diastolic blood pressure 64 mm[Hg] Dr. Jacob Jennings Work Phone: [facility] 04-01-2023 09:38-0400 Heart rate 79 /min Dr. Jacob Jennings Work Phone: [facility] 04-01-2023 09:38-0400 Respiratory rate 18 /min Dr. Jacob Jennings Work Phone: [facility] 04-01-2023 09:38-0400 SaO2% (BldA) [Mass fraction] 97 % Dr. Jacob Jennings Work Phone: [facility] 04-01-2023 09:38-0400 Systolic blood pressure 128 mm[Hg] Dr. Jacob Jennings Work Phone: [facility] 03-24-2023 13:04-0400 Body mass index (BMI) [Ratio] 32.6 kg/m2 Dr. Jacob Jennings Work Phone: [facility] 03-24-2023 13:04-0400 Body temperature 97.1 [degF] Dr. Jacob Jennings Work Phone: [facility] 03-24-2023 13:04-0400 Body weight 88.[address] Jacob Jennigns Work Phone: [facility] 03-24-2023 13:04-0400 Diastolic blood pressure 78 mm[Hg] Dr. Jacob Jennings Work Phone: [facility] 03-24-2023 13:04-0400 Heart rate 74 /min Dr. Jacob Jennings Work Phone: [facility] 03-24-2023 13:04-0400 Respiratory rate 16 /min Dr. Jacob Jennings Work Phone: [facility] 03-24-2023 13:04-0400 SaO2% (BldA) [Mass fraction] 96 % Dr. Jacob Jennings Work Phone: [facility] 03-24-2023 13:04-0400 Systolic blood pressure 134 mm[Hg] Dr. Jacob Jennings Work Phone: [facility] 03-19-2023 20:45-0400 Diastolic blood pressure 60 mm[Hg] Dr. Jacob Jennings Work Phone: [facility] 03-19-2023 20:45-0400 Heart rate 68 /min Dr. Jacob Jennings Work Phone: [facility] 03-19-2023 20:45-0400 Respiratory rate 15 /min Dr. Jacob Jennings Work Phone: [facility] 03-19-2023 20:45-0400 SaO2% (BldA) [Mass fraction] 97 % Dr. Jacob Jennings Work Phone: [facility] 03-19-2023 20:45-0400 Systolic blood pressure 118 mm[Hg] Dr. Jacob Jennings Work Phone: [facility] 03-19-2023 16:07-0400 Body mass index (BMI) [Ratio] 32.7 kg/m2 Dr. Jacob Jennings Work Phone: [facility] 03-19-2023 16:07-0400 Body temperature 99.4 [degF] Dr. Jacob Jennings Work Phone: [facility] 03-19-2023 16:07-0400 Body weight 89.[address] Jacob Jennings Work Phone: [facility] 03-17-2023 10:02-0400 Body height 165.[address] Jacob Jennings Work Phone: [facility] 03-17-2023 10:02-0400 Body mass index (BMI) [Ratio] 32.6 kg/m2 Dr. Jacob Jennings Work Phone: [facility] 03-17-2023 10:02-0400 Body temperature 97.2 [degF] Dr. Jacob Jennings Work Phone: [facility] 03-17-2023 10:02-0400 Body weight 89.[address] Jacob Jennings Work Phone: [facility] 03-17-2023 10:02-0400 Diastolic blood pressure 57 mm[Hg] Dr. Jacob Jennings Work Phone: [facility] 03-17-2023 10:02-0400 Heart rate 79 /min Dr. Jacob Jennings Work Phone: [facility] 03-17-2023 10:02-0400 Respiratory rate 20 /min Dr. Jacob Jennings Work Phone: [facility] 03-17-2023 10:02-0400 SaO2% (BldA) [Mass fraction] 94 % Dr. Jacob Jennings Work Phone: [facility] 03-17-2023 10:02-0400 Systolic blood pressure 114 mm[Hg] Dr. Jacob Jennings Work Phone: [facility] 03-10-2023 10:14-0400 Body mass index (BMI) [Ratio] 32.8 kg/m2 Dr. Jacob Jennings Work Phone: [facility] 03-10-2023 10:14-0400 Body weight 89.[address] Jacob Jennings Work Phone: [facility] 03-10-2023 09:50-0400 Body mass index (BMI) [Ratio] 32.8 kg/m2 Dr. Jacob Jennings Work Phone: [facility] 03-10-2023 09:50-0400 Body temperature 98.5 [degF] Dr. Jacob Jennings Work Phone: [facility] 03-10-2023 09:50-0400 Body weight 89.[address] Jacob Jennings Work Phone: [facility] 03-10-2023 09:50-0400 Diastolic blood pressure 63 mm[Hg] Dr. Jaocb Jennings Work Phone: [facility] 03-10-2023 09:50-0400 Heart rate 76 /min Dr. Jacob Jennings Work Phone: [facility] 03-10-2023 09:50-0400 Respiratory rate 16 /min Dr. Jacob Jennings Work Phone: [facility] 03-10-2023 09:50-0400 SaO2% (BldA) [Mass fraction] 94 % Dr. Jacob Jennings Work Phone: [facility] 03-10-2023 09:50-0400 Systolic blood pressure 101 mm[Hg] Dr. Jacob Jennings Work Phone: [facility] 02-19-2023 10:17-0400 Diastolic blood pressure 57 mm[Hg] Dr. Jacob Jennings Work Phone: [facility] 02-19-2023 10:17-0400 Heart rate 73 /min Dr. Jacob Jennings Work Phone: [facility] [facility] 02-19-2023 10:17-0400 Respiratory rate 16 /min Dr. Jacob Jennings Work Phone: [facility] 02-19-2023 10:17-0400 SaO2% (BldA) [Mass fraction] 96 % Dr. Jacob Jennings Work Phone: [facility] 02-19-2023 10:17-0400 Systolic blood pressure 120 mm[Hg] Dr. Jacob Jennings Work Phone: [facility] 02-17-2023 09:33-0400 Body mass index (BMI) [Ratio] 34 kg/m2 Dr. Jacob Jennings Work Phone: [facility] 02-17-2023 09:33-0400 Body temperature 98.6 [degF] Dr. Jacob Jennings Work Phone: [facility] 02-17-2023 09:33-0400 Body weight 92.[address] Jacob Jennings Work Phone: [facility] 02-17-2023 09:33-0400 Diastolic blood pressure 56 mm[Hg] Dr. Jacob Jennings Work Phone: [facility] 02-17-2023 09:33-0400 Heart rate 76 /min Dr. Jacob Jennings Work Phone: [facility] 02-17-2023 09:33-0400 Respiratory rate 18 /min Dr. Jacob Jennings Work Phone: [facility] 02-17-2023 09:33-0400 SaO2% (BldA) [Mass fraction] 96 % Dr. Jacob Jennings Work Phone: [facility] 02-17-2023 09:33-0400 Systolic blood pressure 106 mm[Hg] Dr. Jacob Jennings Work Phone: [facility] 01-27-2023 10:08-0400 Body mass index (BMI) [Ratio] 32.5 kg/m2 Dr. Jacob Jennings Work Phone: [facility] 01-27-2023 10:08-0400 Body temperature 98.5 [degF] Dr. Jacob Jennings Work Phone: [facility] 01-27-2023 10:08-0400 Body weight 89.[address] Jacob Jennings Work Phone: [facility] 01-27-2023 10:08-0400 Diastolic blood pressure 55 mm[Hg] Dr. Jacob Jennings Work Phone: [facility] 01-27-2023 10:08-0400 Heart rate 79 /min Dr. Jacob Jennings Work Phone: [facility] 01-27-2023 10:08-0400 Respiratory rate 16 /min Dr. Jacob Jennings Work Phone: [facility] 01-27-2023 10:08-0400 SaO2% (BldA) [Mass fraction] 96 % Dr. Jacob Jennings Work Phone: [facility] 01-27-2023 10:08-0400 Systolic blood pressure 107 mm[Hg] Dr. Jacob Jennings Work Phone: [facility] 01-23-2023 10:49-0400 Body height 166.[address] Jacob Jennings Work Phone: [facility] 01-23-2023 10:47-0400 Body mass index (BMI) [Ratio] 32.5 kg/m2 Dr. Jacob Jennings Work Phone: [facility] 01-23-2023 10:47-0400 Body temperature 97 [degF] Dr. Jacob Jennings Work Phone: [facility] 01-23-2023 10:47-0400 Body weight 89.[address] Jacob Jennings Work Phone: [facility] 01-23-2023 10:47-0400 Diastolic blood pressure 54 mm[Hg] Dr. Jacob Jennings Work Phone: [facility] 01-23-2023 10:47-0400 Heart rate 95 /min Dr. Jacob Jennings Work Phone: [facility] 01-23-2023 10:47-0400 SaO2% (BldA) [Mass fraction] 95 % Dr. Jacob Jennings Work Phone: [facility] 01-23-2023 10:47-0400 Systolic blood pressure 109 mm[Hg] Dr. Jacob Jennings Work Phone: [facility] 01-23-2023 08:39-0400 Body mass index (BMI) [Ratio] 32.5 kg/m2 Dr. Jacob Jennings Work Phone: [facility] 01-23-2023 08:39-0400 Body temperature 97.4 [degF] Dr. Jacob Jennings Work Phone: [facility] 01-23-2023 08:39-0400 Body weight 89.[address] Jacob Jennings Work Phone: [facility] 01-23-2023 08:39-0400 Diastolic blood pressure 56 mm[Hg] Dr. Jacob Jennings Work Phone: [facility] 01-23-2023 08:39-0400 Heart rate 85 /min Dr. Jacob Jennings Work Phone: [facility] 01-23-2023 08:39-0400 Respiratory rate 20 /min Dr. Jacob Jennings Work Phone: [facility] 01-23-2023 08:39-0400 SaO2% (BldA) [Mass fraction] 96 % Dr. Jacob Jennings Work Phone: [facility] 01-23-2023 08:39-0400 Systolic blood pressure 109 mm[Hg] Dr. Jacob Jennings Work Phone: [facility] 01-06-2023 10:09-0500 Body height 166.[address] Jacob Jennings Work Phone: [facility] 01-06-2023 10:09-0500 Body mass index (BMI) [Ratio] 31.5 kg/m2 Dr. Jacob Jennings Work Phone: [facility] 01-06-2023 10:09-0500 Body weight 87.[address] Jacob Jennings Work Phone: [facility] 01-06-2023 09:30-0500 Body mass index (BMI) [Ratio] 31.5 kg/m2 Dr. Jacob Jennings Work Phone: [facility] 01-06-2023 09:30-0500 Body temperature 97.8 [degF] Dr. Jacob Jennings Work Phone: [facility] 01-06-2023 09:30-0500 Body weight 87.[address] Jacob Jennings Work Phone: [facility] 01-06-2023 09:30-0500 Diastolic blood pressure 72 mm[Hg] Dr. Jacob Jennings Work Phone: [facility] 01-06-2023 09:30-0500 Heart rate 79 /min Dr. Jacob Jennings Work Phone: [facility] 01-06-2023 09:30-0500 Respiratory rate 18 /min Dr. Jacob Jennings Work Phone: [facility] 01-06-2023 09:30-0500 SaO2% (BldA) [Mass fraction] 96 % Dr. Jacob Jennings Work Phone: [facility] 01-06-2023 09:30-0500 Systolic blood pressure 136 mm[Hg] Dr. Jacob Jennings Work Phone: [facility] 01-05-2023 10:08-0500 Body mass index (BMI) [Ratio] 32.1 kg/m2 Dr. Jacob Jennings Work Phone: [facility] 01-05-2023 10:08-0500 Body temperature 97.4 [degF] Dr. Jacob Jennings Work Phone: [facility] 01-05-2023 10:08-0500 Body weight 87.[address] Jacob Jennings Work Phone: [facility] 01-05-2023 10:08-0500 Diastolic blood pressure 71 mm[Hg] Dr. Jacob Jennings Work Phone: [facility] 01-05-2023 10:08-0500 Heart rate 96 /min Dr. Jacob Jennings Work Phone: [facility] 01-05-2023 10:08-0500 Respiratory rate 18 /min Dr. Jacob Jennings Work Phone: [facility] 01-05-2023 10:08-0500 SaO2% (BldA) [Mass fraction] 97 % Dr. Jacob Jennings Work Phone: [facility] 01-05-2023 10:08-0500 Systolic blood pressure 159 mm[Hg] Dr. Jacob Jennings Work Phone: [facility] 12-31-2022 07:14-0500 Body height 165.1 cm Jacob Jennings Work Phone: [facility] 12-31-2022 07:14-0500 Body mass index (BMI) [Ratio] 31.72 kg/m2 Jacob Jennings DO Work Phone: [facility] 12-31-2022 07:14-0500 Body temperature 98.6 [degF] Jacob Jennings DO Work Phone: [facility] 12-31-2022 07:14-0500 Body weight 86.46 kg Jacob Jennings DO Work Phone: [facility] 12-31-2022 07:14-0500 Diastolic blood pressure 61 mm[Hg] Jacob Jennings DO Work Phone: [facility] 12-31-2022 07:14-0500 Heart rate 89 /min Jacob Jennings DO Work Phone: [facility] 12-31-2022 07:14-0500 SaO2% (BldA) [Mass fraction] 97 % Jacob Jennings DO Work Phone: [facility] 12-31-2022 07:14-0500 Systolic blood pressure 128 mm[Hg] Jacob Jennings DO Work Phone: [facility] 12-29-2022 12:30-0500 Body height 166.[address] Jacob Jennings Work Phone: [facility] 12-29-2022 12:30-0500 Body weight 88.[address] Jacob Jennings Work Phone: [facility] 12-29-2022 12:30-0500 Heart rate 95 /min Dr. Jacob Jennings Work Phone: [facility] 12-29-2022 12:30-0500 SaO2% (BldA) [Mass fraction] 97 % Dr. Jacob Jennings Work Phone: [facility] 12-16-2022 10:13-0500 Body mass index (BMI) [Ratio] 31.4 kg/m2 Dr. Jacob Jennings Work Phone: [facility] 12-16-2022 10:13-0500 Body weight 88.[address] Jacob Jennings Work Phone: [facility] 12-16-2022 08:51-0500 Body mass index (BMI) [Ratio] 31.4 kg/m2 Dr. Jacob Jennings Work Phone: [facility] 12-16-2022 08:51-0500 Body temperature 98 [degF] Dr. Jacob Jennings Work Phone: [facility] 12-16-2022 08:51-0500 Body weight 88.[address] Jacob Jennings Work Phone: [facility] 12-16-2022 08:51-0500 Diastolic blood pressure 67 mm[Hg] Dr. Jacob Jennings Work Phone: [facility] 12-16-2022 08:51-0500 Heart rate 74 /min Dr. Jacob Jennings Work Phone: [facility] 12-16-2022 08:51-0500 Respiratory rate 20 /min Dr. aJcob Jennings Work Phone: [facility] 12-16-2022 08:51-0500 SaO2% (BldA) [Mass fraction] 96 % Dr. Jacob Jennings Work Phone: [facility] 12-16-2022 08:51-0500 Systolic blood pressure 132 mm[Hg] Dr. Jacob Jennings Work Phone: [facility] 11-25-2022 11:42-0500 Diastolic blood pressure 63 mm[Hg] Dr. Jacob Jennings Work Phone: [facility] 11-25-2022 11:42-0500 Heart rate 83 /min Dr. Jacob Jennings Work Phone: [facility] 11-25-2022 11:42-0500 SaO2% (BldA) [Mass fraction] 93 % Dr. Jacob Jennings Work Phone: [facility] 11-25-2022 11:42-0500 Systolic blood pressure 123 mm[Hg] Dr. Jacob Jennings Work Phone: [facility] 11-25-2022 09:29-0500 Body mass index (BMI) [Ratio] 31.1 kg/m2 Dr. Jacob Jennings Work Phone: [facility] 11-25-2022 09:29-0500 Body temperature 98.5 [degF] Dr. Jacob Jennings Work Phone: [facility] 11-25-2022 09:29-0500 Body weight 87.[address] Jacob Jennings Work Phone: [facility] 11-25-2022 09:29-0500 Diastolic blood pressure 63 mm[Hg] Dr. Jacob Jennings Work Phone: [facility] 11-25-2022 09:29-0500 Heart rate 87 /min Dr. Jacob Jennings Work Phone: [facility] 11-25-2022 09:29-0500 Respiratory rate 18 /min Dr. Jacob Jennings Work Phone: [facility] 11-25-2022 09:29-0500 SaO2% (BldA) [Mass fraction] 94 % Dr. Jacob Jennings Work Phone: [facility] 11-25-2022 09:29-0500 Systolic blood pressure 118 mm[Hg] Dr. Jacob Jennings Work Phone: [facility] 11-24-2022 06:37-0500 Body mass index (BMI) [Ratio] 31.1 kg/m2 Dr. Jacob Jennings Work Phone: [facility] 11-24-2022 06:37-0500 Body temperature 97.6 [degF] Dr. Jacob Jennings Work Phone: [facility] 11-24-2022 06:37-0500 Body weight 87.[address] Jacob Jennings Work Phone: [facility] 11-24-2022 06:37-0500 Diastolic blood pressure 68 mm[Hg] Dr. Jacob Jennings Work Phone: [facility] 11-24-2022 06:37-0500 Heart rate 103 /min Dr. Jacob Jennings Work Phone: [facility] 11-24-2022 06:37-0500 Respiratory rate 18 /min Dr. Jacob Jennings Work Phone: [facility] 11-24-2022 06:37-0500 SaO2% (BldA) [Mass fraction] 92 % Dr. Jacob Jennings Work Phone: [facility] 11-24-2022 06:37-0500 Systolic blood pressure 126 mm[Hg] Dr. Jacob Jennings Work Phone: [facility] 11-21-2022 14:40-0500 Body temperature 99.3 [degF] Dr. Jacob Jennings Work Phone: [facility] 11-21-2022 14:40-0500 Diastolic blood pressure 80 mm[Hg] Dr. Jacob Jennings Work Phone: [facility] 11-21-2022 14:40-0500 Heart rate 82 /min Dr. Jacob Jennings Work Phone: [facility] 11-21-2022 14:40-0500 Respiratory rate 16 /min Dr. Jacob Jennings Work Phone: [facility] 11-21-2022 14:40-0500 SaO2% (BldA) [Mass fraction] 97 % Dr. Jacob Jennings Work Phone: [facility] 11-21-2022 14:40-0500 Systolic blood pressure 123 mm[Hg] Dr. Jacob Jennings Work Phone: [facility] 11-21-2022 14:17-0500 Respiratory rate 20 /min Dr. Jacob Jennings Work Phone: [facility] Work Phone: 11-21-2022 09:00-0500 Body temperature 99.4 [degF] Dr. Jacob Jennings Work Phone: [facility] Work Phone: 11-21-2022 09:00-0500 Diastolic blood pressure 69 mm[Hg] Dr. Jacob Jennings Work Phone: [facility] Work Phone: 11-21-2022 09:00-0500 Heart rate 98 /min Dr. Jacob Jennings Work Phone: [facility] Work Phone: 11-21-2022 09:00-0500 SaO2% (BldA) [Mass fraction] 95 % Dr. Jacob Jennings Work Phone: [facility] Work Phone: 11-21-2022 09:00-0500 Systolic blood pressure 127 mm[Hg] Dr. Jacob Jennings Work Phone: [facility] Work Phone: 11-21-2022 08:15-0500 Inhaled oxygen flow rate 2 L/min Dr. Jacob Jennings Work Phone: [facility] 11-19-2022 21:19-0500 Body height 167.[address] Jacob Jennings Work Phone: [facility] Work Phone: 11-19-2022 21:19-0500 Body mass index (BMI) [Ratio] 30.7 kg/m2 Dr. Jacob Jennings Work Phone: [facility] 11-19-2022 21:19-0500 Body weight 86.[address] Jacob Jennings Work Phone: [facility] 11-19-2022 21:06-0500 Body temperature 97.4 [degF] Dr. Jacob Jennings Work Phone: [facility] Work Phone: 11-19-2022 21:06-0500 Diastolic blood pressure 61 mm[Hg] Dr. Jacob Jennings Work Phone: [facility] Work Phone: 11-19-2022 21:06-0500 Heart rate 66 /min Dr. Jacob Jennings Work Phone: [facility] Work Phone: 11-19-2022 21:06-0500 Respiratory rate 16 /min Dr. Jacob Jennings Work Phone: [facility] Work Phone: 11-19-2022 21:06-0500 SaO2% (BldA) [Mass fraction] 98 % Dr. Jacob Jennings Work Phone: [facility] Work Phone: 11-19-2022 21:06-0500 Systolic blood pressure 130 mm[Hg] Dr. Jacob Jennings Work Phone: [facility] Work Phone: 11-19-2022 18:52-0500 Inhaled oxygen flow rate 2 L/min Dr. Jacob Jennings Work Phone: [facility] Work Phone: 11-19-2022 16:32-0500 Body height 167.[address] Jacob Jennings Work Phone: [facility] Work Phone: 11-19-2022 16:32-0500 Body mass index (BMI) [Ratio] 31.4 kg/m2 Dr. Jacob Jennings Work Phone: [facility] Work Phone: 11-19-2022 16:32-0500 Body weight 88.[address] 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 OUT CLERK Work Phone: [facility] 11-17-2022 11:42-0500 Body temperature 99.9 [degF] 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 OUT CLERK Work Phone: [facility] 11-17-2022 11:42-0500 Body weight 89.36 kg 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 Jacob Jennings Work Phone: [facility] 11-13-2022 11:27-0500 Body temperature 98.3 [degF] Dr. Jacob Jennings Work Phone: [facility] 11-13-2022 11:27-0500 Body weight 88.[address] Jacob Jennings Work Phone: [facility] 11-13-2022 11:27-0500 Diastolic blood pressure 71 mm[Hg] Dr. Jacob Jennings Work Phone: [facility] 11-13-2022 11:27-0500 Heart rate 80 /min Dr. Jacob Jennings Work Phone: [facility] 11-13-2022 11:27-0500 Respiratory rate 16 /min Dr. Jacob Jennings Work Phone: [facility] 11-13-2022 11:27-0500 SaO2% (BldA) [Mass fraction] 92 % Dr. Jacob Jennings Work Phone: [facility] 11-13-2022 11:27-0500 Systolic blood pressure 151 mm[Hg] Dr. Jacob Jennings Work Phone: [facility] 11-04-2022 12:53-0500 Body mass index (BMI) [Ratio] 31.8 kg/m2 Dr. Jacob Jennings Work Phone: [facility] Work Phone: 11-04-2022 12:53-0500 Body weight 89.[address] Jacob Jennings Work Phone: [facility] Work Phone: 11-04-2022 12:03-0500 Body mass index (BMI) [Ratio] 31.8 kg/m2 Dr. Jacob Jennings Work Phone: [facility] 11-04-2022 12:03-0500 Body temperature 98.1 [degF] Dr. Jacob Jennings Work Phone: [facility] 11-04-2022 12:03-0500 Body weight 89.[address] Jacob Jennings Work Phone: [facility] 11-04-2022 12:03-0500 Diastolic blood pressure 69 mm[Hg] Dr. Jacob Jennings Work Phone: [facility] 11-04-2022 12:03-0500 Heart rate 75 /min Dr. Jacob Jennings Work Phone: [facility] 11-04-2022 12:03-0500 Respiratory rate 18 /min Dr. Jacob Jennings Work Phone: [facility] 11-04-2022 12:03-0500 SaO2% (BldA) [Mass fraction] 96 % Dr. Jacob Jennings Work Phone: [facility] 11-04-2022 12:03-0500 Systolic blood pressure 157 mm[Hg] Dr. Jacob Jennings Work Phone: [facility] 10-15-2022 09:00-0500 Body height 167.[address] Jacob Jennings Work Phone: [facility] Work Phone: 10-15-2022 09:00-0500 Body mass index (BMI) [Ratio] 32 kg/m2 Dr. Jacob Jennings Work Phone: [facility] 10-15-2022 09:00-0500 Body temperature 98.2 [degF] Dr. Jacob Jennings Work Phone: [facility] 10-15-2022 09:00-0500 Body weight 89.[address] Jacob Jennings Work Phone: [facility] 10-15-2022 09:00-0500 Diastolic blood pressure 70 mm[Hg] Dr. Jacob Jennings Work Phone: [facility] 10-15-2022 09:00-0500 Heart rate 86 /min Dr. Jacob Jennings Work Phone: [facility] 10-15-2022 09:00-0500 Respiratory rate 18 /min Dr. Jacob Jennings Work Phone: [facility] 10-15-2022 09:00-0500 SaO2% (BldA) [Mass fraction] 94 % Dr. Jacob Jennings Work Phone: [facility] 10-15-2022 09:00-0500 Systolic blood pressure 123 mm[Hg] Dr. Jacob Jennings Work Phone: [facility] 10-14-2022 09:54-0500 Body mass index (BMI) [Ratio] 32 kg/m2 Dr. Jacob Jennings Work Phone: [facility] Work Phone: 10-14-2022 09:54-0500 Body weight 90.[address] Jacob Jennings Work Phone: [facility] Work Phone: 10-14-2022 09:00-0500 Body mass index (BMI) [Ratio] 32.1 kg/m2 Dr. Jacob Jennings Work Phone: [facility] 10-14-2022 09:00-0500 Body temperature 98.3 [degF] Dr. Jacob Jennings Work Phone: [facility] 10-14-2022 09:00-0500 Body weight 90.[address] Jacob Jennings Work Phone: [facility] 10-14-2022 09:00-0500 Diastolic blood pressure 68 mm[Hg] Dr. Jacob Jennings Work Phone: [facility] 10-14-2022 09:00-0500 Heart rate 71 /min Dr. Jacob Jennings Work Phone: [facility] 10-14-2022 09:00-0500 Respiratory rate 16 /min Dr. Jacob Jennings Work Phone: [facility] 10-14-2022 09:00-0500 SaO2% (BldA) [Mass fraction] 95 % Dr. Jacob Jennings Work Phone: [facility] 10-14-2022 09:00-0500 Systolic blood pressure 128 mm[Hg] Dr. Jacob Jennings Work Phone: [facility] 09-23-2022 11:17-0500 Body temperature 97.2 [degF] Dr. Jacob Jennings Work Phone: [facility] 09-23-2022 11:17-0500 Diastolic blood pressure 57 mm[Hg] Dr. Jacob Jennings Work Phone: [facility] Work Phone: 09-23-2022 11:17-0500 Heart rate 70 /min Dr. Jacob Jennings Work Phone: [facility] Work Phone: 09-23-2022 11:17-0500 Respiratory rate 16 /min Dr. Jacob Jennings Work Phone: [facility] 09-23-2022 11:17-0500 Systolic blood pressure 102 mm[Hg] Dr. Jacob Jennings Work Phone: [facility] Work Phone: 09-23-2022 09:05-0500 Body mass index (BMI) [Ratio] 32.1 kg/m2 Dr. Jacob Jennings Work Phone: [facility] 09-23-2022 09:05-0500 Body temperature 98.8 [degF] Dr. Jacob Jennings Work Phone: [facility] 09-23-2022 09:05-0500 Body weight 90.[address] Jacob Jennings Work Phone: [facility] 09-23-2022 09:05-0500 Diastolic blood pressure 71 mm[Hg] Dr. Jacob Jennings Work Phone: [facility] 09-23-2022 09:05-0500 Heart rate 76 /min Dr. Jacob Jennings Work Phone: [facility] 09-23-2022 09:05-0500 Respiratory rate 16 /min Dr. Jacob Jennings Work Phone: [facility] 09-23-2022 09:05-0500 SaO2% (BldA) [Mass fraction] 95 % Dr. Jacob Jennings Work Phone: [facility] 09-23-2022 09:05-0500 Systolic blood pressure 131 mm[Hg] Dr. Jacob Jennings Work Phone: [facility] 09-11-2022 10:11-0400 Body height 167.[address] Jacob Jennings Work Phone: [facility] Work Phone: 09-11-2022 10:09-0400 Body mass index (BMI) [Ratio] 31.4 kg/m2 Dr. Jacob Jennings Work Phone: [facility] 09-11-2022 10:09-0400 Body temperature 98.9 [degF] Dr. Jacob Jennings Work Phone: [facility] 09-11-2022 10:09-0400 Body weight 88.[address] Jacob Jennings Work Phone: [facility] 09-11-2022 10:09-0400 Diastolic blood pressure 64 mm[Hg] Dr. Jacob Jennings Work Phone: [facility] 09-11-2022 10:09-0400 Heart rate 77 /min Dr. Jacob Jennings Work Phone: [facility] 09-11-2022 10:09-0400 Respiratory rate 16 /min Dr. Jacob Jennings Work Phone: [facility] 09-11-2022 10:09-0400 SaO2% (BldA) [Mass fraction] 92 % Dr. Jacob Jennings Work Phone: [facility] 09-11-2022 10:09-0400 Systolic blood pressure 138 mm[Hg] Dr. Jacob Jennings Work Phone: [facility] [facility] 09-02-2022 11:04-0400 Diastolic blood pressure 56 mm[Hg] Dr. Jacob Jennings Work Phone: [facility] Work Phone: 09-02-2022 11:04-0400 Heart rate 72 /min Dr. Jacob Jennings Work Phone: [facility] Work Phone: 09-02-2022 11:04-0400 SaO2% (BldA) [Mass fraction] 97 % Dr. Jacob Jennings Work Phone: [facility] Work Phone: 09-02-2022 11:04-0400 Systolic blood pressure 113 mm[Hg] Dr. Jacob Jennings Work Phone: [facility] Work Phone: 09-02-2022 09:04-0400 Body mass index (BMI) [Ratio] 31.5 kg/m2 Dr. Jacob Jennings Work Phone: [facility] Work Phone: 09-02-2022 09:04-0400 Body weight 88.[address] Jacob Jennings Work Phone: [facility] Work Phone: 09-02-2022 08:33-0400 Body mass index (BMI) [Ratio] 30.5 kg/m2 Dr. Jacob Jennings Work Phone: [facility] Work Phone: 09-02-2022 08:33-0400 Body temperature 98 [degF] Dr. Jacob Jennings Work Phone: [facility] Work Phone: 09-02-2022 08:33-0400 Body weight 88.[address] Jacob Jennings Work Phone: [facility] Work Phone: 09-02-2022 08:33-0400 Diastolic blood pressure 67 mm[Hg] Dr. Jacob Jennings Work Phone: [facility] Work Phone: 09-02-2022 08:33-0400 Heart rate 77 /min Dr. Jacob Jennings Work Phone: [facility] Work Phone: 09-02-2022 08:33-0400 Respiratory rate 16 /min Dr. Jacob Jennings Work Phone: [facility] Work Phone: 09-02-2022 08:33-0400 SaO2% (BldA) [Mass fraction] 92 % Dr. Jacob Jennings Work Phone: [facility] Work Phone: 09-02-2022 08:33-0400 Systolic blood pressure 114 mm[Hg] Dr. Jacob Jennings Work Phone: [facility] Work Phone: 08-12-2022 08:50-0400 Body mass index (BMI) [Ratio] 30.7 kg/m2 Dr. Jacob Jennings Work Phone: [facility] Work Phone: 08-12-2022 08:50-0400 Body temperature 98.7 [degF] Dr. Jacob Jennings Work Phone: [facility] Work Phone: 08-12-2022 08:50-0400 Body weight 88.[address] Jacob Jennings Work Phone: [facility] Work Phone: 08-12-2022 08:50-0400 Diastolic blood pressure 71 mm[Hg] Dr. Jacob Jennings Work Phone: [facility] Work Phone: 08-12-2022 08:50-0400 Heart rate 76 /min Dr. Jacob Jennings Work Phone: [facility] Work Phone: 08-12-2022 08:50-0400 Respiratory rate 16 /min Dr. Jacob Jennings Work Phone: [facility] Work Phone: 08-12-2022 08:50-0400 SaO2% (BldA) [Mass fraction] 96 % Dr. Jacob Jennings Work Phone: [facility] Work Phone: 08-12-2022 08:50-0400 Systolic blood pressure 118 mm[Hg] Dr. Jacob Jennings Work Phone: [facility] Work Phone: 08-01-2022 08:36-0400 Body mass index (BMI) [Ratio] 30.2 kg/m2 Dr. Jacob Jennings Work Phone: [facility] Work Phone: 08-01-2022 08:36-0400 Body weight 87.[address] Jacob Jennings Work Phone: [facility] Work Phone: 08-01-2022 08:36-0400 Diastolic blood pressure 75 mm[Hg] Dr. Jacob Jennings Work Phone: [facility] Work Phone: 08-01-2022 08:36-0400 Heart rate 74 /min Dr. Jacob Jennings Work Phone: [facility] Work Phone: 08-01-2022 08:36-0400 SaO2% (BldA) [Mass fraction] 98 % Dr. Jacob Jennings Work Phone: [facility] Work Phone: 08-01-2022 08:36-0400 Systolic blood pressure 129 mm[Hg] Dr. Jacob Jennings Work Phone: [facility] Work Phone: 07-22-2022 09:59-0400 Body mass index (BMI) [Ratio] 30.5 kg/m2 Dr. Jacob Jennings Work Phone: [facility] Work Phone: 07-22-2022 09:59-0400 Body temperature 98.7 [degF] Dr. Jacob Jennings Work Phone: [facility] Work Phone: 07-22-2022 09:59-0400 Body weight 88.[address] Jacob Jennings Work Phone: [facility] Work Phone: 07-22-2022 09:59-0400 Diastolic blood pressure 69 mm[Hg] Dr. Jacob Jennings Work Phone: [facility] Work Phone: 07-22-2022 09:59-0400 Heart rate 67 /min Dr. Jacob Jennings Work Phone: [facility] Work Phone: 07-22-2022 09:59-0400 Respiratory rate 16 /min Dr. Jacob Jennings Work Phone: [facility] Work Phone: 07-22-2022 09:59-0400 SaO2% (BldA) [Mass fraction] 95 % Dr. Jacob Jennings Work Phone: [facility] Work Phone: 07-22-2022 09:59-0400 Systolic blood pressure 117 mm[Hg] Dr. Jacob Jennings Work Phone: [facility] Work Phone: 07-15-2022 10:10-0400 Body mass index (BMI) [Ratio] 29.4 kg/m2 Dr. Jacob Jennings Work Phone: [facility] Work Phone: 07-15-2022 10:10-0400 Body temperature 98.6 [degF] Dr. Jacob Jennings Work Phone: [facility] Work Phone: 07-15-2022 10:10-0400 Body weight 85.[address] Jacob Jennings Work Phone: [facility] Work Phone: 07-15-2022 10:10-0400 Diastolic blood pressure 56 mm[Hg] Dr. Jacob Jennings Work Phone: [facility] Work Phone: 07-15-2022 10:10-0400 Heart rate 80 /min Dr. Jacob Jennings Work Phone: [facility] Work Phone: 07-15-2022 10:10-0400 Respiratory rate 16 /min Dr. Jacob Jennings Work Phone: [facility] Work Phone: 07-15-2022 10:10-0400 SaO2% (BldA) [Mass fraction] 95 % Dr. Jacob Jennings Work Phone: [facility] Work Phone: 07-15-2022 10:10-0400 Systolic blood pressure 112 mm[Hg] Dr. Jacob Jennings Work Phone: [facility] Work Phone: 07-15-2022 09:04-0400 Body mass index (BMI) [Ratio] 32.5 kg/m2 Dr. Jacob Jennings Work Phone: [facility] Work Phone: 07-15-2022 09:04-0400 Body temperature 99 [degF] Dr. Jacob Jennings Work Phone: [facility] Work Phone: 07-15-2022 09:04-0400 Body weight 86.[address] Jacob Jennings Work Phone: [facility] Work Phone: 07-15-2022 09:04-0400 Diastolic blood pressure 57 mm[Hg] Dr. Jacob Jennings Work Phone: [facility] Work Phone: 07-15-2022 09:04-0400 Heart rate 75 /min Dr. Jacob Jennings Work Phone: [facility] Work Phone: 07-15-2022 09:04-0400 Respiratory rate 16 /min Dr. Jacob Jennings Work Phone: [facility] Work Phone: 07-15-2022 09:04-0400 SaO2% (BldA) [Mass fraction] 95 % Dr. Jacob Jennings Work Phone: [facility] Work Phone: 07-15-2022 09:04-0400 Systolic blood pressure 96 mm[Hg] Dr. Jacob Jennings Work Phone: [facility] Work Phone: 06-24-2022 09:14-0400 Body mass index (BMI) [Ratio] 33.7 kg/m2 Dr. Jacob Jennings Work Phone: [facility] Work Phone: 06-24-2022 09:14-0400 Body temperature 98.4 [degF] Dr. Jacob Jennings Work Phone: [facility] Work Phone: 06-24-2022 09:14-0400 Body weight 89.[address] Jacob Jennings Work Phone: [facility] Work Phone: 06-24-2022 09:14-0400 Diastolic blood pressure 66 mm[Hg] Dr. Jacob Jennings Work Phone: [facility] Work Phone: 06-24-2022 09:14-0400 Heart rate 70 /min Dr. Jacob Jennings Work Phone: [facility] Work Phone: 06-24-2022 09:14-0400 Respiratory rate 16 /min Dr. Jacob Jennings Work Phone: [facility] Work Phone: 06-24-2022 09:14-0400 SaO2% (BldA) [Mass fraction] 96 % Dr. Jacob Jennings Work Phone: [facility] Work Phone: 06-24-2022 09:14-0400 Systolic blood pressure 118 mm[Hg] Dr. Jacob Jennings Work Phone: [facility] Work Phone: 06-03-2022 12:14-0400 Respiratory rate 14 /min Dr. Jacob Jennings Work Phone: [facility] Work Phone: 06-03-2022 08:46-0400 Body mass index (BMI) [Ratio] 33.7 kg/m2 Dr. Jacob Jennings Work Phone: [facility] Work Phone: 06-03-2022 08:46-0400 Body temperature 98.2 [degF] Dr. Jacob Jennings Work Phone: [facility] Work Phone: 06-03-2022 08:46-0400 Body weight 89.[address] Jacob Jennings Work Phone: [facility] Work Phone: 06-03-2022 08:46-0400 Diastolic blood pressure 64 mm[Hg] Dr. Jacob Jennings Work Phone: [facility] Work Phone: 06-03-2022 08:46-0400 Heart rate 77 /min Dr. Jacob Jennings Work Phone: [facility] Work Phone: 06-03-2022 08:46-0400 Respiratory rate 16 /min Dr. Jacob Jennings Work Phone: [facility] Work Phone: 06-03-2022 08:46-0400 SaO2% (BldA) [Mass fraction] 96 % Dr. Jacob Jennings Work Phone: [facility] Work Phone: 06-03-2022 08:46-0400 Systolic blood pressure 115 mm[Hg] Dr. Jacob Jennings Work Phone: [facility] Work Phone: 05-27-2022 09:25-0400 Body temperature 96.6 [degF] Dr. Jacob Jennings Work Phone: [facility] Work Phone: 03-11-2022 09:50-0400 Body height 164.[address] Jacob Jennings Work Phone: [facility] Work Phone: 03-11-2022 09:50-0400 Body mass index (BMI) [Ratio] 33.6 kg/m2 Dr. Jacob Jennings Work Phone: [facility] Work Phone: 03-11-2022 09:50-0400 Body weight 91.[address] Jacob Jennings Work Phone: [facility] Work Phone: 03-11-2022 09:07-0400 Body mass index (BMI) [Ratio] 33.6 kg/m2 Dr. Jacob Jennings Work Phone: [facility] Work Phone: 03-11-2022 09:07-0400 Body temperature 98.5 [degF] Dr. Jacob Jennings Work Phone: [facility] Work Phone: 03-11-2022 09:07-0400 Body weight 91.[address] Jacob Jennings Work Phone: [facility] Work Phone: 03-11-2022 09:07-0400 Diastolic blood pressure 66 mm[Hg] Dr. Jacob Jennings Work Phone: [facility] Work Phone: 03-11-2022 09:07-0400 Heart rate 75 /min Dr. Jacob Jennings Work Phone: [facility] Work Phone: 03-11-2022 09:07-0400 Respiratory rate 18 /min Dr. Jacob Jennings Work Phone: [facility] Work Phone: 03-11-2022 09:07-0400 SaO2% (BldA) [Mass fraction] 94 % Dr. Jacob Jennings Work Phone: [facility] Work Phone: 03-11-2022 09:07-0400 Systolic blood pressure 122 mm[Hg] Dr. Jacob Jennings Work Phone: [facility] Work Phone: 02-21-2022 08:49-0400 Body mass index (BMI) [Ratio] 33.8 kg/m2 Dr. Jacob Jennings Work Phone: [facility] Work Phone: 02-21-2022 08:49-0400 Body weight 92.[address] Jacob Jennings Work Phone: [facility] Work Phone: 02-21-2022 08:49-0400 Diastolic blood pressure 76 mm[Hg] Dr. Jacob Jennings Work Phone: [facility] Work Phone: 02-21-2022 08:49-0400 Heart rate 82 /min Dr. Jacob Jennings Work Phone: [facility] Work Phone: 02-21-2022 08:49-0400 Respiratory rate 16 /min Dr. Jacob Jennings Work Phone: [facility] Work Phone: 02-21-2022 08:49-0400 SaO2% (BldA) [Mass fraction] 94 % Dr. Jacob Jennings Work Phone: [facility] Work Phone: 02-21-2022 08:49-0400 Systolic blood pressure 131 mm[Hg] Dr. Jacob Jennings Work Phone: [facility] Work Phone: 02-18-2022 09:58-0400 Body mass index (BMI) [Ratio] 33.7 kg/m2 Dr. Jacob Jennings Work Phone: [facility] Work Phone: 02-18-2022 09:58-0400 Body temperature 98.4 [degF] Dr. Jacob Jennings Work Phone: [facility] Work Phone: 02-18-2022 09:58-0400 Body weight 92.[address] Jacob Jennings Work Phone: [facility] Work Phone: 02-18-2022 09:58-0400 Diastolic blood pressure 78 mm[Hg] Dr. Jacob Jennings Work Phone: [facility] Work Phone: 02-18-2022 09:58-0400 Heart rate 78 /min Dr. Jacob Jennings Work Phone: [facility] Work Phone: 02-18-2022 09:58-0400 Respiratory rate 16 /min Dr. Jacob Jennings Work Phone: [facility] Work Phone: 02-18-2022 09:58-0400 SaO2% (BldA) [Mass fraction] 95 % Dr. Jacob Jennings Work Phone: [facility] Work Phone: 02-18-2022 09:58-0400 Systolic blood pressure 124 mm[Hg] Dr. Jacob Jennings Work Phone: [facility] Work Phone: 01-28-2022 11:51-0400 Diastolic blood pressure 67 mm[Hg] Dr. Jacob Jennings Work Phone: [facility] Work Phone: 01-28-2022 11:51-0400 Heart rate 70 /min Dr. Jacob Jennings Work Phone: [facility] Work Phone: 01-28-2022 11:51-0400 Respiratory rate 16 /min Dr. Jacob Jennings Work Phone: [facility] Work Phone: 01-28-2022 11:51-0400 SaO2% (BldA) [Mass fraction] 97 % Dr. Jacob Jennings Work Phone: [facility] Work Phone: 01-28-2022 11:51-0400 Systolic blood pressure 125 mm[Hg] Dr. Jacob Jennings Work Phone: [facility] Work Phone: 01-28-2022 09:42-0400 Body mass index (BMI) [Ratio] 33.7 kg/m2 Dr. Jacob Jennings Work Phone: [facility] Work Phone: 01-28-2022 09:42-0400 Body temperature 98.4 [degF] Dr. Jacob Jennings Work Phone: [facility] Work Phone: 01-28-2022 09:42-0400 Body weight 92.[address] Jacob Jennings Work Phone: [facility] Work Phone: 01-28-2022 09:42-0400 Diastolic blood pressure 72 mm[Hg] Dr. Jacob Jennings Work Phone: [facility] Work Phone: 01-28-2022 09:42-0400 Heart rate 74 /min Dr. Jacob Jennings Work Phone: [facility] Work Phone: 01-28-2022 09:42-0400 Respiratory rate 16 /min Dr. Jacob Jennings Work Phone: [facility] Work Phone: 01-28-2022 09:42-0400 SaO2% (BldA) [Mass fraction] 96 % Dr. Jacob Jennings Work Phone: [facility] Work Phone: 01-28-2022 09:42-0400 Systolic blood pressure 120 mm[Hg] Dr. Jacob Jennings Work Phone: [facility] Work Phone: 01-07-2022 11:02-0500 Body temperature 97 [degF] Dr. Jacob Jennings Work Phone: [facility] Work Phone: 01-07-2022 07:12-0500 Body mass index (BMI) [Ratio] 33.7 kg/m2 Dr. Jacob Jennings Work Phone: [facility] Work Phone: 01-07-2022 07:12-0500 Body temperature 98.1 [degF] Dr. Jacob Jennings Work Phone: [facility] Work Phone: 01-07-2022 07:12-0500 Body weight 92.[address] Jacob Jennings Work Phone: [facility] Work Phone: 01-07-2022 07:12-0500 Diastolic blood pressure 67 mm[Hg] Dr. Jacob Jennings Work Phone: [facility] Work Phone: 01-07-2022 07:12-0500 Heart rate 71 /min Dr. Jacob Jennings Work Phone: [facility] Work Phone: 01-07-2022 07:12-0500 Respiratory rate 18 /min Dr. Jacob Jennings Work Phone: [facility] Work Phone: 01-07-2022 07:12-0500 SaO2% (BldA) [Mass fraction] 96 % Dr. Jacob Jennings Work Phone: [facility] Work Phone: 01-07-2022 07:12-0500 Systolic blood pressure 122 mm[Hg] Dr. Jacob Jennings Work Phone: [facility] Work Phone: 12-17-2021 08:53-0500 Body mass index (BMI) [Ratio] 33.5 kg/m2 Dr. Jacob Jennings Work Phone: [facility] Work Phone: 12-17-2021 08:53-0500 Body temperature 98.5 [degF] Dr. Jacob Jennings Work Phone: [facility] Work Phone: 12-17-2021 08:53-0500 Body weight 91.[address] Jacob Jennings Work Phone: [facility] Work Phone: 12-17-2021 08:53-0500 Diastolic blood pressure 76 mm[Hg] Dr. Jacob Jennings Work Phone: [facility] Work Phone: 12-17-2021 08:53-0500 Heart rate 72 /min Dr. Jacob Jennings Work Phone: [facility] Work Phone: 12-17-2021 08:53-0500 Respiratory rate 16 /min Dr. Jacob Jennings Work Phone: [facility] Work Phone: 12-17-2021 08:53-0500 SaO2% (BldA) [Mass fraction] 97 % Dr. Jacob Jennings Work Phone: [facility] Work Phone: 12-17-2021 08:53-0500 Systolic blood pressure 130 mm[Hg] Dr. Jacob Jennings Work Phone: [facility] Work Phone: 11-26-2021 07:09-0500 Body mass index (BMI) [Ratio] 34 kg/m2 Dr. Jacob Jennings Work Phone: [facility] Work Phone: 11-26-2021 07:09-0500 Body temperature 98.4 [degF] Dr. Jacob Jennings Work Phone: [facility] Work Phone: 11-26-2021 07:09-0500 Body weight 92.[address] Jacob Jennings Work Phone: [facility] Work Phone: 11-26-2021 07:09-0500 Diastolic blood pressure 69 mm[Hg] Dr. Jacob Jennings Work Phone: [facility] Work Phone: 11-26-2021 07:09-0500 Heart rate 77 /min Dr. Jacob Jennings Work Phone: [facility] Work Phone: 11-26-2021 07:09-0500 Respiratory rate 16 /min Dr. Jacob Jennings Work Phone: [facility] Work Phone: 11-26-2021 07:09-0500 SaO2% (BldA) [Mass fraction] 96 % Dr. Jacob Jennings Work Phone: [facility] Work Phone: 11-26-2021 07:09-0500 Systolic blood pressure 119 mm[Hg] Dr. Jacob Jennings Work Phone: [facility] Work Phone: 11-19-2021 10:03-0500 Body mass index (BMI) [Ratio] 33.4 kg/m2 Dr. Jacob Jennings Work Phone: [facility] Work Phone: 11-19-2021 10:03-0500 Body temperature 98.4 [degF] Dr. Jacob Jennings Work Phone: [facility] Work Phone: 11-19-2021 10:03-0500 Body weight 91.[address] Jacob Jennings Work Phone: [facility] Work Phone: 11-19-2021 10:03-0500 Diastolic blood pressure 77 mm[Hg] Dr. Jacob Jennings Work Phone: [facility] Work Phone: 11-19-2021 10:03-0500 Heart rate 74 /min Dr. Jacob Jennings Work Phone: [facility] Work Phone: 11-19-2021 10:03-0500 Respiratory rate 16 /min Dr. Jacob Jennings Work Phone: [facility] Work Phone: 11-19-2021 10:03-0500 SaO2% (BldA) [Mass fraction] 95 % Dr. Jacob Jennings Work Phone: [facility] Work Phone: 11-19-2021 10:03-0500 Systolic blood pressure 125 mm[Hg] Dr. Jacob Jennings Work Phone: [facility] Work Phone: 05-17-2021 15:29-0400 Body temperature 96.91 [degF] Tono Birch MD Work Phone: [facility] Work Phone: 05-17-2021 15:29-0400 Diastolic blood pressure 88 mm[Hg] Tono Birch MD Work Phone: [facility] Work Phone: 05-17-2021 15:29-0400 Heart rate 71 /min Tono Birch MD Work Phone: [facility] Work Phone: 05-17-2021 15:29-0400 Respiratory rate 18 /min Tono Birch MD Work Phone: [facility] Work Phone: 05-17-2021 15:29-0400 SaO2% (BldA) [Mass fraction] 98 % Tono Birch MD Work Phone: [facility] Work Phone: 05-17-2021 15:29-0400 Systolic blood pressure 168 mm[Hg] Tono Birch MD Work Phone: [facility] Work Phone: 05-15-2021 09:34-0400 Body mass index (BMI) [Ratio] 32.61 kg/m2 Tono Birch MD Work Phone: [facility] Work Phone: 05-15-2021 09:34-0400 Body weight 86.18 kg Tono Birch MD Work Phone: [facility] Work Phone: 03-15-2021 12:00-0400 Heart rate 94 /min Anaid Zee MD Work Phone: [facility] Work Phone: 03-15-2021 12:00-0400 Respiratory rate 16 /min Anaid Zee MD Work Phone: [facility] Work Phone: 03-15-2021 12:00-0400 SaO2% (BldA) [Mass fraction] 94 % Anaid Zee MD Work Phone: [facility] Work Phone: 03-15-2021 11:00-0400 Diastolic blood pressure 63 mm[Hg] Anaid Zee MD Work Phone: [facility] Work Phone: 03-15-2021 11:00-0400 Systolic blood pressure 124 mm[Hg] Anaid Zee MD Work Phone: [facility] Work Phone: 03-15-2021 08:00-0400 Body temperature 97.39 [degF] Anaid Zee MD Work Phone: [facility] Work Phone: 03-15-2021 06:00-0400 Body mass index (BMI) [Ratio] 31.07 kg/m2 Anaid Zee MD Work Phone: [facility] Work Phone: 03-15-2021 06:00-0400 Body weight 82.1 kg Anaid Zee MD Work Phone: [facility] Work Phone: 03-12-2021 10:21-0400 Body height 162.6 cm Anaid Zee MD Work Phone: [facility] Work Phone: 02-20-2021 14:30-0400 BP Diastolic 70 mm[Hg] Ramace Boltond [facility]OH[facility] Work Phone: 02-20-2021 14:30-0400 BP Systolic 124 mm[Hg] Rami Kristin [facility] Work Phone: 02-20-2021 14:30-0400 Pulse (Heart Rate) 70 /min Jose Miguel Boltond [facility] Work Phone: 02-20-2021 14:30-0400 Pulse Oximetry 94 % Jose Miguel Boltond [facility] Work Phone: 02-20-2021 14:30-0400 Respiratory Rate 16 /min Jose Miguel [facility] Work Phone: 02-20-2021 13:00-0400 Body Temperature 97 [degF] Jose Miguel PALAC[facility] Work Phone: 02-20-2021 09:43-0400 BMI (Body Mass Index) 32.27 kg/m2 Jose Miguel Boltond [facility] Work Phone: 02-20-2021 09:43-0400 Body weight 85.28 kg Jose Miguel PALACI[facility] Work Phone: 02-20-2021 09:43-0400 Height 162.6 cm Jose Miguel PALACIOS Work Phone: Encounters Encounter Date Encounter Type Care Provider Facility Start: 09-14-2025 End: 09-14-2025 Clinical Support Schedule Rafy Carter [facility] Rafy Comment on above: Essential hypertensi on (Primary Dx) Start: 09-07-2025 End: 09-07-2025 Office outpatient visit 25 minutes Eleuterio Hatch MD Work Phone: [facility] Rafy Comment on above: Chronic bronchitis, unspecified chronic bronchitis type (HCC) (Primary Dx); Aortic stenosis, mild; Essential hypertension; Celiac disease; Hypercholesterolemia; Elevated PSA; Screening for prostate cancer; Screening for diabetes mellitus; Renal cell carcinoma of right kidney (HCC) Start: 09-07-2025 End: 09-07-2025 ambulatory JACOB WILLSONWHITNEY [facility] Start: 09-06-2025 End: 09-06-2025 ambulatory Verónica Meadows NP Facility:[facility] Start: 08-29-2025 End: 08-29-2025 ambulatory FRANCOIS ACEVEDO Facility:[facility] Start: 08-24-2025 End: 08-24-2025 Dr. Artemio Farrar MD -[facility] Work Phone: Start: 08-24-2025 End: 08-24-[address] Jacob Jennings DO Work Phone: -[facility] Start: 08-22-2025 Dr. Antwan Pitts MD [facility] Work Phone: Start: 08-22-2025 Lalo LAZARO -[facility] Start: 08-21-2025 Dr. Antwan Pitts MD - [facility] Work Phone: Start: 08-20-2025 Dr. Artemio Farrar MD -[facility] Start: 08-19-2025 ambulatory Jacob Willsonpiper Facilit y:[facility] Start: 08-19-2025 End: 08-22-2025 Evaluation and management of inpatient Dr. Jacob Jennings DO Work Phone: -[facility] Start: 08-19-2025 End: 08-22-2025 Dr. Antwan Pitts MD [facility] Work Phone: Start: 08-19-2025 End: 08-19-2025 Emergency department patient visit Tono Birch MD Work Phone: [facility] Comment on above: Sepsis, due to unspe cified organism, unspecified whether acute organ dysfunction present (HCC) (Primary Dx); Cellulitis of right upper extremity; Cat bite, initial encounter; Immunocompromised state (HCC); Malignant neoplasm of kidney, unspecified laterality (HCC) Start: 08-16-2025 End: 08-16-2025 ambulatory KESHA DEY Facility:[facility] Start: 08-16-[address] Kavin Rodriguez MD [facility] Start: 08-16-2025 End: 08-16-2025 Patient encounter procedure Verónica Dori CHARGE OUT CLERK-C -[facility] Work Phone: Start: 08-16-2025 End: 08-16-2025 Verónica Dori CHARGE OUT CLERK-C -[facility] Work Phone: Start: 08-16-2025 End: 08-16-[address] Jacob Jennings DO Work Phone: [facility] Start: 08-04-2025 End: 08-04-[address] Thien Sandoval MD [facility] Work Phone: Start: 08-04-2025 End: 08-04-2025 Dr. Thien Sandoval MD [facility] Work Phone: Start: 08-04-2025 End: 08-04-[address] Jacob Jennings DO Work Phone: [facility] Start: 07-26-[address] [facility] Start: 07-26-2025 End: 07-26-2025 Patient encounter procedure Verónica Dori CHARGE OUT CLERK-C -[facility] Work Phone: Start: 07-26-2025 End: 07-26-2025 Verónica Dori CHARGE OUT CLERK-C -[facility] Work Phone: Start: 07-26-2025 End: 07-26-[address] Jacob Jennings DO Work Phone: [facility] Start: 07-05-2025 End: 07-05-[address] Angela Rodriguez MD [facility] Work Phone: Start: 07-05-2025 End: 07-05-2025 Dr. Angela Rodriguez MD -[facility] Work Phone: Start: 07-05-2025 End: 07-05-[address] aJcob Jennings DO Work Phone: [facility] Start: 07-04-2025 End: 07-04-2025 Patient encounter procedure Michael Chambers DO -[facility] Work Phone: Start: 07-04-2025 End: 07-04-2025 Michaelapollo Chambers DO -[facility] Work Phone: Start: 07-04-2025 End: 07-04-[address] Jacob Jennings DO Work Phone: [facility] Start: 06-28-[address] Kavin Rodriguez MD [facility] Start: 06-28-2025 End: 06-28-[address] Jacob Jennings DO Work Phone: -Cat Scan [facility] Start: 06-28-2025 End: 06-28-[address] Angela Rodriguez MD -Cat Scan [facility] Work Phone: Start: 06-28-2025 End: 06-28-2025 Dr. Angela Rodriguez MD -Cat Scan [facility] Work Phone: Start: 06-28-2025 End: 06-28-2025 ambulatory Angela Rodriguez Facility:[facility] Start: 06-25-2025 End: 06-26-2025 Refill Jacob Jennings DO Work Phone: [facility] Start: 06-15-2025 End: 06-15-2025 Patient encounter procedure Verónica GALINDO -[facility] Work Phone: Start: 06-15-2025 End: 06-15-2025 Verónica GALINDO -[facility] Work Phone: Start: 06-15-2025 End: 06-15-[address] Jacob Jennings DO Work Phone: [facility] Start: 06-09-2025 End: 06-09-2025 Patient encounter procedure Monalisa Dunne CHARGE OUT CLERK-C -[facility] Work Phone: Start: 06-09-2025 End: 06-09-2025 Monalisa BALLARDC -[facility] Work Phone: Start: 06-09-2025 End: 06-09-[address] Jacob Jennings DO Work Phone: -[facility] Start: 05-24-[address] Kavin Rodriguez MD [facility] Start: 05-24-2025 End: 05-24-[address] Angela Rodriguez MD -[facility] Work Phone: Start: 05-24-2025 End: 05-24-2025 Dr. Angela Rodriguez MD -[facility] Work Phone: Start: 05-24-2025 End: 05-24-[address] Jacob Jennings DO Work Phone: [facility] Start: 05-23-2025 End: 05-23-2025 Patient encounter procedure Francois Acevedo MD Work Phone: [facility] Comment on above: Secondary malignant neoplasm of brain (HCC) (Primary Dx) Start: 05-23-2025 End: 05-23-2025 ambulatory FRANCOIS ACEVEDO Facility:[facility] Start: 05-18-2025 End: 05-18-2025 ambulatory Lab/[place] [facility] Work Phone: Hematology/Oncology Comment on above: History of cancer me tastatic to brain (Primary Dx) Start: 05-18-2025 End: 05-18-2025 Subsequent hospital visit by physician Mri Radio [facility] (I-Stat/1.5t) Work Phone: Radiology Comment on above: 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] Start: 05-02-2025 End: 05-02-2025 Patient encounter procedure [facility] Work Phone: Start: 05-02-2025 End: 05-02-2025 [facility] Work Phone: Start: 05-02-2025 End: 05-02-[address] 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); History of pulmonary embolism; Hypercholesterolemia; Coronary artery disease involving lac vieux coronary artery of lac vieux heart without angina pectoris; Essential hypertension; History of renal carcinoma; Cervical radiculopathy due to degenerative joint disease of spine; Celiac disease; Routine general medical examination at health care facility Start: 04-18-2025 End: 04-18-2025 ambulatory [facility] Start: 04-18-2025 End: 04-18-2025 Encounter for general adult medical examination without abnormal findings [facility] Start: 04-12-2025 End: 04-12-[address] Angela Rodriguez MD -[facility] Work Phone: Start: 04-12-2025 End: 04-12-2025 Dr. Angela Rodriguez MD -[facility] Work Phone: Start: 04-12-2025 End: 04-12-[address] Jacob Jennings DO Work Phone: [facility] Work Phone: Start: 03-30-2025 End: 03-30-2025 Patient encounter procedure Michael Chambers DO -[facility] Work Phone: Start: 03-30-2025 End: 03-30-2025 Michael Chambers DO -[facility] Work Phone: Start: 03-30-2025 End: 03-30-2025 ambulatory Michael Chambers Facility:[facility] Start: 03-29-2025 End: 03-29-2025 Patient encounter procedure Verónica Dori CHARGE OUT CLERK-C -[facility] Work Phone: Start: 03-29-2025 End: 03-29-2025 Verónica Meadows CHARGE OUT CLERK-C -[facility] Work Phone: Start: 03-29-2025 End: 03-29-[address] Jacob Jennings DO Work Phone: [facility] Work Phone: Start: 03-27-2025 End: 03-28-2025 Telephone encounter [facility] Comment on above: Other (Plan of care) Start: 03-26-2025 End: 03-27-2025 Refill Jacob Jennings DO Work Phone: [facility] Start: 03-24-2025 Non-patient / Non-visit Michael Frie nd DO -[facility] Start: 03-24-2025 Michael Friend DO -[facility] Start: 03-23-2025 Non-patient / Non-visit Michael Frie nd DO -[facility] Start: 03-23-2025 Michael Friend DO -[facility] Start: 03-23-2025 Non-patient / Non-visit Dr. Emmanuel Kaiser MD -[facility] Work Phone: Start: 03-23-2025 Dr. Emmanuel Kaiser MD -[facility] Work Phone: Start: 03-22-2025 Non-patient / Non-visit Michael Vaughn nd DO -[facility] Start: 03-22-2025 Michael Friend DO -[facility] Start: 03-22-2025 Non-patient / Non-visit Dr. Emmanuel Kaiser MD -[facility] Work Phone: Start: 03-22-2025 Dr. Emmanuel Kaiser MD -[facility] Work Phone: Start: 03-21-2025 Non-patient / Non-visit Michael Monzoncarroll nd DO -[facility] Start: 03-21-2025 Michael Friend DO -[facility] Start: 03-21-2025 ambulatory Sayra Fuentes Facility :[facility] Start: 03-21-2025 End: 03-24-2025 Evaluation and management of inpatient Dr. Jacob Jennings DO Work Phone: [facility] Work Phone: Start: 03-21-2025 End: 03-24-2025 Dr. Sayra Fuentes MD -[facility] 3 Work Phone: Start: 03-15-2025 End: 03-15-[address] Angela Rodriguez MD -[facility] Work Phone: Start: 03-15-2025 End: 03-15-2025 Dr. Angela Rodriguez MD -[facility] Work Phone: Start: 03-15-2025 End: 03-15-2025 ambulatory Angela Rodriguez Facility:[facility] Start: 03-02-2025 End: 03-03-2025 Refill Jacob Jennings DO Work Phone: [facility] Start: 02-21-2025 End: 02-21-2025 Office outpatient visit 15 minutes Jacob Jennings DO Work Phone: [facility] Comment on above: Chronic bronchitis, unspecified chronic bronchitis type (HCC) (Primary Dx); Adenosquamous carcinoma of lung, left (HCC); Chemotherapy induced diarrhea Start: 02-21-2025 End: 02-21-2025 Orders Only Jacob Jennings DO Work Phone: [facility] Start: 02-16-2025 End: 02-16-2025 Patient encounter procedure Michael Reyes DO -[facility] Work Phone: Start: 02-16-2025 End: 02-16-2025 Michael Reyes DO -[facility] Work Phone: Start: 02-16-2025 End: 02-16-2025 ambulatory Michael Chambers Facility:[facility] Start: 02-01-2025 End: 02-01-[address] Angela Rodriguez MD -[facility] Work Phone: Start: 02-01-2025 End: 02-01-2025 Dr. Angela Rodriguez MD [facility] Work Phone: Start: 02-01-2025 End: 02-01-2025 ambulatory Angela Rodriguez Facility:[facility] Start: 01-23-2025 End: 01-23-2025 Telephone encounter Jaocb Jennings Work Phone: [facility] Start: 01-20-2025 End: 01-20-2025 ambulatory Lesly Barrios RN [facility] Clinical Communication Start: 01-20-2025 End: 01-20-2025 Patient encounter procedure Lesly Barrios RN [facility] Communication Start: 01-20-2025 End: 03-27-2025 Telephone encounter Jacob Jennings DO Work Phone: [facility] Start: 01-18-2025 Dr. Evelio Hong MD -[facility] Work Phone: Start: 01-17-2025 Michael Chambers [facility] Start: 01-17-2025 Dr. Chris Medina [facility] Work Phone: Start: 01-16-2025 Dr. Antwan Pitts MD -[facility] Work Phone: Start: 01-15-2025 Dr. Antwan Pitts MD -[facility] Work Phone: Start: 01-14-2025 Dr. Antwan Pitts MD -[facility] Work Phone: Start: 01-13-2025 Michael Chambers [facility] Start: 01-13-2025 Dr. Katlin carpio MD -[facility] Work Phone: Start: 01-13-2025 [facility] Start: 01-12-2025 Dr. Katlin carpio MD -[facility] Work Phone: Start: 01-11-2025 ambulatory Jacob Saldañaa Facilit y:[facility] Start: 01-11-2025 Dr. Eduin Narvaez MD -[facility] Start: 01-11-2025 Dr. Katlin carpio MD [facility] Work Phone: Start: 01-10-2025 End: 01-18-2025 [facility] Start: 01-10-2025 ambulatory Jacob Jennings Facilit y:[facility] Start: 01-10-2025 End: 01-18-2025 Dr. Evelio Hong MD -Progressive Care Unit Work Phone: Start: 01-07-2025 End: 01-07-2025 Dr. Indio Simon MD -Emergency Department Work Phone: Start: 01-07-2025 End: 01-07-2025 Emergency department patient visit [facility] Facility:[facility] Start: 12-30-2024 End: 12-30-2024 Patient encounter procedure Beatriz Damon RN [facility] Clinical Communication Start: 12-30-2024 End: 01-20-2025 Telephone encounter Jacob Robin Dick DO Work Phone: [facility] Start: 12-30-2024 End: 12-30-2024 Office outpatient visit 25 minutes Jacob Robin Dick DO Work Phone: [facility] Comment on above: Nausea (Primary Dx); Chronic bronchitis, unspecified chronic bronchitis type (HCC); Hypochromic microcytic anemia; History of bleeding peptic ulcer; 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; 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); History of pulmonary embolism Start: 12-30-2024 End: 12-30-2024 ambulatory Beatriz Damon RN [facility] Clinical Communication Start: 12-28-2024 End: 12-28-2024 ambulatory Ginette Bentley RN [facility] Clinical Communication Start: 12-28-2024 End: 12-28-2024 Patient encounter procedure Ginette Bentley RN [facility] Clinical Communication Start: 12-21-2024 End: 12-21-2024 Verónica Meadows NP-[facility] Work Phone: Start: 12-21-2024 End: 12-21-2024 ambulatory Verónica Meadows NP Facility:[facility] Start: 12-16-2024 Dr. Amber pike MD -[facility] Work Phone: Start: 12-15-2024 Dr. Amber pike MD -[facility] Work Phone: Start: 12-14-2024 ambulatory Sayra L White Facility :[facility] Start: 12-14-2024 End: 12-16-2024 Evaluation and management of inpatient Sayra L White Facility:[facility] Start: 12-14-2024 End: 12-16-2024 Dr. Amber Cat MD -Medical Surgical 2 Work Phone: Start: 12-12-2024 End: 12-12-2024 ambulatory Leigh Casiano RN [facility] Clinical Communication Start: 12-12-2024 End: 12-12-2024 Patient encounter procedure Leigh Casiano RN [facility] Clinical Communication Start: 12-12-2024 End: 12-24-2024 Telephone encounter Jacob Jennings DO [facility] Comment on above: Other Start: 12-06-2024 End: 12-06-2024 Patient encounter procedure Paige Villalobos RN [facility] Clinical Communication Start: 12-06-2024 End: 12-06-2024 Office outpatient visit 15 minutes Jacob Jennings DO [facility] Comment on above: Acute non-recurrent frontal sinusitis (Primary Dx); Adverse effect of drug, subsequent encounter; Chronic bronchitis, unspecified chronic bronchitis type (HCC); 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) Start: 12-06-2024 End: 12-06-2024 ambulatory Paige Villalobos RN [facility] Clinical Communication Start: 12-05-2024 End: 12-05-2024 Refill Jacob Jennings [facility] Start: 12-02-2024 End: 12-02-2024 Gage LAZARO -[facility] Work Phone: Start: 12-02-2024 End: 12-02-2024 ambulatory Jacob Willsonharishpiper Facility:[facility] Start: 12-01-2024 End: 12-01-2024 [facility] Start: 12-01-2024 End: 12-01-2024 Patient encounter procedure [facility] Start: 11-29-2024 End: 11-29-2024 [facility] Work [facility]: Start: 11-29-2024 End: 11-29-2024 ambulatory Jacob Anamikawhitney Facility:[facility] Start: 11-21-2024 End: 11-21-2024 Telephone encounter Francois Acevedo MD Work Phone: [facility] Start: 11-18-2024 End: 11-18-2024 Patient encounter procedure Francois Acevedo MD Work Phone: [facility] Comment on above: Secondary malignant neoplasm of brain (HCC) (Primary Dx) Start: 11-18-2024 End: 11-18-2024 ambulatory FRANCOIS ACEVEDO Facility:[facility] Start: 11-17-2024 End: 11-17-2024 ambulatory Michael Chambers Facility:[facility] Start: 11-11-2024 End: 11-11-2024 ambulatory Lab/[place] [facility] Work Phone: Hematology/Oncology Comment on above: History of cancer me tastatic to brain (Primary Dx) Start: 11-11-2024 End: 11-11-2024 Subsequent hospital visit by physician Mri Radio [facility] (I-Stat/1.5t) Work Phone: Radiology Comment on above: Metastatic cancer to brain (HCC) [C79.31] Start: 11-08-2024 End: 11-08-2024 ambulatory Jacob Jennings Facility:[facility] Start: 10-20-2024 End: 10-20-2024 Office outpatient visit 25 minutes Jacob Jennings DO Work Phone: [facility] Comment on above: Essential hypertensi on (Primary Dx); Adenocarcinoma of right lung (HCC); Hypercholesterolemia; Seizure (HCC); History of pulmonary embolism; Ex-smoker; Hypochromic microcytic anemia; History of colon polyps; Coronary artery disease involving lac vieux coronary artery of lac vieux heart without angina pectoris Start: 10-20-2024 End: 10-20-2024 [facility] Start: 10-18-2024 End: 10-18-2024 Refill Kesha Dey APRN.CNP Work Phone: [facility] Comment on above: Refill Request Start: 10-18-2024 End: 10-18-2024 ambulatory Jackietonny Michael Facility:[facility] Start: 10-08-2024 End: 10-10-2024 Refill Jacob Jennings DO Work Phone: [facility] Start: 09-28-2024 End: 09-28-2024 ambulatory Verónica Meadows NP Facility:[facility] Start: 09-22-2024 End: 09-22-2024 Refill Jacob Jennings DO [facility] Start: 09-19-2024 End: 09-19-2024 Office outpatient visit 15 minutes Jacob Sharda Dick DO Work Phone: [facility] Comment on above: Skin infection (Prim brigette Dx); Coronary artery disease involving lac vieux coronary artery of lac vieux heart without angina pectoris; 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); Inclusion cyst Start: 09-19-2024 End: 09-19-2024 ambulatory JACOB [facility] Start: 09-16-2024 End: 09-20-2024 [facility] Start: 09-16-2024 End: 09-20-2024 Patient encounter procedure [facility] Start: 09-15-2024 End: 09-15-2024 ambulatory Jacob Willsonwhitney Facility:[facility] Start: 05-26-2024 End: 05-26-2024 Refill Jacob Robin [facility] DO Work Phone: [facility] Start: 05-20-2024 End: 05-20-2024 Patient encounter procedure Francois Acevedo MD Work Phone: [facility] Comment on above: Metastatic cancer to brain (HCC) (Primary Dx); Secondary malignant neoplasm of brain (HCC) Start: 05-17-2024 End: 05-17-2024 ambulatory Chair 3 [facility] Start: 05-17-2024 End: 05-17-2024 Patient encounter procedure [facility] Comment on above: Encounter for manage ment of implanted device (Primary Dx) Start: 05-17-2024 End: 05-17-2024 Subsequent hospital visit by physician Mri [place] (1.5t/Lg Bore 70cm) Work Phone: [facility] Comment on above: Metastatic cancer to brain (HCC) [C79.31] Start: 04-19-2024 Refill Kesha Dey LEXIStellaMARKER DELIVERY Work Phone: [facility] Comment on above: Refill Request Start: 04-19-2024 End: 04-19-2024 Office outpatient visit 25 minutes Jacob Jennings DO Work Phone: [facility] Comment on above: Essential hypertensi on (Primary Dx); 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; Actinic keratosis; Coronary artery disease involving lac vieux coronary artery of lac vie[place] heart without angina pectoris; Prostate cancer screening; 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); History of pulmonary embolus (PE) Start: 04-15-2024 Refill Jacob alicea DO Work Phone: [facility] Start: 03-09-2024 Non-patient / Non-visit Dr. Rajan Jennings Work Phone: [facility] Start: 03-09-2024 Non-patient / Non-visit Dr. Rajan Jennings Work Phone: [facility] In[facility] Physicians Work Phone: Start: 03-08-2024 Non-patient / Non-visit Dr. Rajan Jennings Work Phone: [facility] Work Phone: Start: 03-08-2024 End: 03-09-2024 Evaluation and management of inpatient Dr. Jacob Jennings Work Phone: [facility] 3 Work Phone: Start: 03-08-2024 End: 03-09-[address] Jacob Jennings Work Phone: [facility] Work Phone: Start: 03-08-2024 Non-patient / Non-visit Dr. Rajan Jennings [facility] Start: 03-07-[address] Yahir Jennings Work Phone: [facility] On[facility] Start: 03-02-2024 End: 03-02-[address] Jacob Jennings Work Phone: [facility] Work Phone: Start: 03-02-[address] Yahir Jennings Work Phone: [facility] Start: 03-01-2024 End: 03-01-[address] Jacob Jennings Work Phone: [facility] Work Phone: Start: 03-01-2024 End: 03-01-2024 Non-patient / Non-visit Dr. Jacob Jennings Work Phone: [facility] Work Phone: Start: 02-25-2024 End: 02-25-[address] Jacob Jennings Work Phone: [facility] Work Phone: Start: 02-25-2024 End: 02-25-[address] Jacob Jennings Work Phone: [facility] Work Phone: Start: 02-25-2024 End: 02-25-[address] Jacob Jennings Work Phone: [facility] Work Phone: Start: 02-19-2024 End: 02-19-2024 Patient encounter procedure Francois Acevedo MD Work Phone: [facility] Comment on above: Metastatic cancer to brain (HCC) (Primary Dx) Start: 02-15-2024 End: 02-15-2024 Subsequent hospital visit by physician Mri [place] (1.5t/Lg Bore 70cm) Work Phone: [facility] Comment on above: Metastatic cancer to brain (HCC) [C79.31] Start: 02-10-2024 End: 02-10-[address] Jacob Jennings Work Phone: [facility] Work Phone: Start: 01-20-2024 End: 01-20-[address] Jacob Jennings Work Phone: [facility] Work Phone: Start: 01-15-2024 End: 01-15-[address] Jacob Jennings Work Phone: [facility] Work Phone: Start: 01-13-[address] Yahir Jennings Work Phone: [facility] On[facility] Start: 01-13-2024 End: 01-13-[address] Jacob Jennings Work Phone: [facility] Work Phone: Start: 01-13-2024 End: 01-13-[address] Jacob Jennings Work Phone: [facility] Work Phone: Start: 01-08-2024 Telephone encounter Jacob stallworth DO Work Phone: [facility] Medicine Comment on above: Referral (Dr Osei) Start: 01-08-2024 End: 01-08-[address] Jacob Jennings Work Phone: [facility] Work Phone: Start: 01-07-2024 End: 01-07-2024 Office outpatient visit 40 minutes Jacob Jennings DO Work Phone: [facility] Comment on above: Essential hypertensi on (Primary Dx); 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); Obesity, morbid (HCC); Seizure (HCC); Hypercholesterolemia; Coronary artery disease involving lac vieux coronary artery of lac vieux heart without angina pectoris; History of colon polyps; Right carotid bruit; History of pulmonary embolism; Prostate cancer screening; Chronic gastritis without bleeding, unspecified gastritis type Start: 01-06-2024 End: 01-06-[address] Jacob Jennings Work Phone: [facility] Work Phone: Start: 01-06-2024 End: 01-06-[address] Jacob Jennings Work Phone: [facility] Work Phone: Start: 12-30-[address] Yahir Jennings Work Phone: [facility] On[facility] Start: 12-30-2023 End: 12-30-[address] Jacob Jennings Work Phone: [facility] Work Phone: Start: 12-23-2023 Non-patient / Non-visit Dr. Rajan Jennings Work Phone: [facility] Work Phone: Start: 12-09-2023 End: 12-09-[address] Jacob Jennings Work Phone: [facility] Work Phone: Start: 12-04-2023 End: 12-04-[address] Jacob Jennings Work Phone: [facility] Work Phone: Start: 11-24-2023 End: 11-24-2023 Office outpatient visit 15 minutes Em Philip PA-C Work Phone: [facility] Family Medicine Comment on above: Epistaxis (Primary D x); Skin tear of right upper arm without complication, initial encounter; Upper respiratory tract infection, unspecified type Start: 11-24-2023 ambulatory Merlene mccurdy RN [facility] Clinical Communication Start: 11-24-2023 Patient encounter procedure Merlene Andino RN [facility] Clinical Communication Start: 11-18-2023 End: 11-18-[address] Jacob Jennings Work Phone: [facility] Work Phone: Start: 10-28-2023 End: 10-28-[address] Jacob Jennings Work Phone: [facility] Work Phone: Start: 10-20-2023 Orders Only Kesha Dey IN SERVICE EDUCATION TEACHER.MARKER DELIVERY Work Phone: [facility] Comment on above: Metastatic cancer to brain (HCC) (Primary Dx) Start: 10-19-2023 ambulatory JACOB JENNINGS [facility] Start: 10-19-2023 End: 10-19-2023 Subsequent hospital visit by physician [facility] (1.5t) Radiology Comment on above: Metastatic cancer to brain (HCC) [C79.31] Start: 10-19-2023 Telephone encounter Francois Acevedo MD Work Phone: [facility] Comment on above: Patient Question Start: 10-18-2023 End: 10-18-2023 Emergency department patient visit Dr. Jacob Jennings Work Phone: [facility]-Emergency Department Work Phone: Start: 10-15-2023 Refill Kesha Dey IN SERVICE EDUCATION TEACHER.MARKER DELIVERY Work Phone: [facility] Comment on above: Refill Request Start: 10-07-[address] Yahir Jennings Work Phone: [facility] On[facility] Start: 10-07-2023 End: 10-07-[address] Jacob Jennings Work Phone: [facility] Work Phone: Start: 10-05-2023 End: 10-05-[address] Jacob Jennings Work Phone: [facility] Work Phone: Start: 10-05-2023 End: 10-05-[address] Jacob Jennings Work Phone: [facility] Work Phone: Start: 09-16-2023 End: 09-16-[address] Jacob Jennings Work Phone: [facility] Work Phone: Start: 09-08-2023 Telephone encounter Kesha vo IN SERVICE EDUCATION TEACHER.MARKER DELIVERY Work Phone: [facility] Comment on above: Patient Update Start: 09-03-2023 Telephone encounter Kesha vo IN SERVICE EDUCATION TEACHER.MARKER DELIVERY Work Phone: [facility] Comment on above: Returning Patient's Call Start: 09-02-2023 End: 09-02-[address] Jacob Jennings Work Phone: [facility] Work Phone: Start: 09-02-2023 End: 09-02-[address] Jacob Jennings Work Phone: [facility] Work Phone: Start: 09-02-2023 End: 09-02-[address] Jacob Jennings Work Phone: [facility] Work Phone: Start: 08-26-[address] Yahir Jennings Work Phone: [facility] On[facility] Start: 08-26-2023 End: 08-26-[address] Jacob Jennings Work Phone: [facility] Work Phone: Start: 08-25-2023 Telephone encounter Kesha vo APRN.MARKER DELIVERY Work Phone: [facility] Comment on above: Returning Patient's Call Start: 08-21-2023 End: 08-21-[address] Jacob Jennings Work Phone: [facility] Work Phone: Start: 08-18-2023 Telephone encounter Kesha vo APRN.MARKER DELIVERY Work Phone: [facility] Comment on above: Patient Update Start: 08-14-2023 Telephone encounter Francois Acevedo MD Work Phone: [facility] Start: 08-07-2023 End: 08-07-2023 Patient encounter procedure Francois Acevedo MD Work Phone: [facility] Comment on above: Metastatic cancer to brain (HCC) (Primary Dx) Start: 08-05-2023 End: 08-05-[address] Jacob Jennings Work Phone: [facility] Work Phone: Start: 08-04-2023 ambulatory UNKNOWN PROVIDER Facili ty:[facility] Start: 07-24-2023 Refill Jacob alicea DO Work Phone: [facility] Family Medicine Start: 07-15-2023 End: 07-15-[address] Jacob Jennings Work Phone: [facility] Work Phone: Start: 07-08-2023 End: 07-08-[address] Jacob Jennings Work Phone: [facility] Work Phone: Start: 07-07-2023 Telephone encounter Kesha Jean tavo IN SERVICE EDUCATION TEACHER.MARKER DELIVERY Work Phone: [facility] Comment on above: Patient Update Start: 07-03-2023 Telephone encounter Kesha Ramoncharlette vo IN SERVICE EDUCATION TEACHER.MARKER DELIVERY Work Phone: [facility] Comment on above: Returning Patient's Call Start: 07-01-[address] Yahir Jennings Work Phone: [facility] Start: 07-01-2023 End: 07-01-[address] Jacob Jennings Work Phone: [facility] Work Phone: Start: 07-01-2023 End: 07-01-[address] Jacob Jennings Work Phone: [facility] Work Phone: Start: 06-17-2023 End: 06-17-[address] Jacob Jennings Work Phone: [facility] Work Phone: Start: 06-09-2023 End: 06-09-2023 Patient encounter procedure Francois Acevedo MD Work Phone: [facility] Comment on above: History of cancer me tastatic to brain (Primary Dx) Start: 06-06-2023 ambulatory UNKNOWN PROVIDER Facili ty:[facility] Start: 06-06-2023 End: 06-06-2023 Subsequent hospital visit by physician [facility] (1.5t) Radiology Comment on above: History of cancer me tastatic to brain [Z85.89] Start: 05-27-2023 Telephone encounter Francois Acevedo MD Work Phone: [facility] Comment on above: Appointment Start: 05-27-2023 End: 05-27-[address] Jacob Jennings Work Phone: [facility] Work Phone: Start: 05-22-2023 Telephone encounter Pineda gutierrez MD Work Phone: [facility] Comment on above: Medical records Start: 05-21-2023 End: 05-21-[address] Jacob Jennings Work Phone: [facility] Work Phone: Start: 05-20-2023 End: 05-20-2023 Office outpatient new 45 minutes Pineda Fields MD Work Phone: [facility] Comment on above: PRES (posterior reve rsible encephalopathy syndrome) (Primary Dx) Start: 05-19-2023 End: 05-19-[address] Jacob Jennings Work Phone: [facility] Work Phone: Start: 05-06-2023 Non-patient / Non-visit Dr. Rajan Jennings Work Phone: [facility] Start: 05-06-2023 Non-patient / Non-visit Dr. Rajan Jennings Work Phone: [facility] Start: 05-06-2023 Dr. Jacob gonzalez Work Phone: [facility] Start: 05-06-2023 Non-patient / Non-visit Dr. Rajan Jennings Work Phone: [facility] Inpatient Physicians Work Phone: Start: 05-06-2023 Dr. Jacob gonzalez Work Phone: [facility] Work Phone: Start: 05-05-2023 Non-patient / Non-visit Dr. Rajan Jennings Work Phone: [facility] Start: 05-05-2023 Dr. Jacob gonzalez Work Phone: [facility] Start: 05-05-2023 Non-patient / Non-visit Dr. Rajan Jennings Work Phone: [facility] Start: 05-05-2023 Dr. Jacob gonzalez Work Phone: [facility] Start: 05-05-2023 Non-patient / Non-visit Dr. Rajan Jennings Work Phone: [facility] Work Phone: Start: 05-05-2023 Dr. Jacob gonzalez Work Phone: [facility] Work Phone: Start: 05-04-2023 Non-patient / Non-visit Dr. Rajan Jennings Work Phone: [facility] Start: 05-04-2023 Dr. Jacob gonzalez Work Phone: [facility] Start: 05-04-2023 Non-patient / Non-visit Dr. Rajan Jennings Work Phone: [facility] Work Phone: Start: 05-04-2023 Dr. Jacob gonzalez Work Phone: [facility] Work Phone: Start: 05-03-2023 Non-patient / Non-visit Dr. Rajan Jennings Work Phone: [facility] In[facility] Physicians Work Phone: Start: 05-03-2023 Dr. Jacob gonzalez Work Phone: [facility] Inpatient Physicians Work Phone: Start: 05-03-2023 Non-patient / Non-visit Dr. Rajan Jennings Work Phone: [facility] Start: 05-03-2023 Dr. Jacob gonzalez Work Phone: [facility] Start: 05-02-2023 End: 05-06-2023 Evaluation and management of inpatient Dr. Jacob Jennings Work Phone: [facility] Surgical 3 Start: 05-02-2023 End: 05-06-2023 Dr. Jacob Jennings Work Phone: [facility] 3 Work Phone: Start: 04-28-[address] Yahir Jennings Work Phone: [facility] On[facility] Start: 04-28-2023 End: 04-28-[address] Jacob Jennings Work Phone: [facility] Start: 04-28-2023 End: 04-28-2023 Dr. Jacob Jennings Work Phone: [facility] Work Phone: Start: 04-27-2023 End: 04-27-[address] Jacob Jennings Work Phone: [facility] Start: 04-27-2023 End: 04-27-2023 Dr. Jacob Jennings Work Phone: [facility] Work Phone: Start: 04-08-2023 End: 04-08-[address] Jacob Jennings Work Phone: [facility] Start: 04-08-2023 End: 04-08-2023 Dr. Jacob Jennings Work Phone: [facility] Work Phone: Start: 04-01-2023 End: 04-01-[address] [facility] Start: 04-01-2023 End: 04-01-2023 Dr. Jacob Jennings Work Phone: [facility] Work Phone: Start: 03-24-2023 End: 03-24-[address] Jacob Jennings Work Phone: [facility] Start: 03-24-2023 End: 03-24-2023 Dr. Jacob Jennings Work Phone: [facility] Work Phone: Start: 03-19-2023 End: 03-19-2023 Emergency department patient visit Dr. Jacob Jennings Work Phone: [facility]Emergency Department Start: 03-19-2023 End: 03-19-2023 Dr. Jacob Jennings Work Phone: [facility] Work Phone: Start: 03-17-[address] Yahir Jennings Work Phone: [facility] On[facility] Start: 03-17-2023 End: 03-17-[address] Jacob Jennings Work Phone: [facility] Start: 03-17-2023 End: 03-17-2023 Dr. Jacob Jennings Work Phone: [facility] Work Phone: Start: 03-16-2023 End: 03-16-[address] Jacob Jennings Work Phone: [facility] Work Phone: Start: 03-16-2023 End: 03-16-[address] Jacob Jennings Work Phone: [facility] Start: 03-16-2023 End: 03-16-2023 Dr. Jacob Jennings Work Phone: [facility] Work Phone: Start: 03-13-2023 End: 03-13-[address] Jacob Jennings Work Phone: [facility] Work Phone: Start: 03-13-2023 End: 03-13-[address] Jacob Jennings Work Phone: [facility] Start: 03-13-2023 End: 03-13-2023 Dr. Jacob Jennings Work Phone: [facility] Work Phone: Start: 03-10-2023 End: 03-10-[address] Jacob Jennings Work Phone: [facility] Start: 03-10-2023 End: 03-10-2023 Dr. Jacob Jennings Work Phone: [facility] Work Phone: Start: 02-17-2023 End: 02-17-[address] Jacob Jennings Work Phone: [facility] Start: 02-17-2023 End: 02-17-2023 Dr. Jacob Jennings Work Phone: [facility] Work Phone: Start: 01-27-2023 End: 01-27-[address] Jacob Jennings Work Phone: [facility] Start: 01-27-2023 End: 01-27-2023 Dr. Jacob Jennings Work Phone: [facility] Work Phone: Start: 01-23-2023 End: 01-23-[address] Jacob Jennings Work Phone: [facility] Start: 01-23-2023 End: 01-23-2023 Dr. Jacob Jennings Work Phone: [facility] Work Phone: Start: 01-23-2023 End: 01-23-[address] Jacob Jennings Work Phone: [facility] Start: 01-23-2023 End: 01-23-2023 Dr. Jacob Jennings Work Phone: [facility] Work Phone: Start: 01-21-2023 End: 01-21-[address] Jacob Jennings Work Phone: [facility] Work Phone: Start: 01-21-2023 End: 01-21-[address] Jacob Jennings Work Phone: [facility] Start: 01-21-2023 End: 01-21-2023 Dr. Jacob Jennings Work Phone: [facility] Work Phone: Start: 01-13-2023 Non-patient / Non-visit Dr. Rajan Jennings Work Phone: [facility] Start: 01-13-2023 End: 01-13-[address] Jacob Jennings Work Phone: [facility] Work Phone: Start: 01-13-2023 End: 01-13-[address] [facility] Start: 01-13-2023 End: 01-13-2023 Dr. Jacob Jennings Work Phone: [facility] Start: 01-06-[address] Yahir Jennings Work Phone: [facility] On[facility] Start: 01-06-2023 End: 01-06-[address] Jacob Jennings Work Phone: [facility] Start: 01-06-2023 End: 01-06-2023 Dr. Jacob Jennings Work Phone: [facility] Work Phone: Start: 01-05-2023 End: 01-05-[address] [facility] Start: 01-01-2023 Telephone encounter Jacob stallworth DO Work Phone: [facility] Family Medicine Comment on above: Orders Start: 12-31-2022 Telephone encounter Jacob stallworth DO Work Phone: [facility] Family Medicine Comment on above: Orders (Carotid dopp ler/Dermatology ) Start: 12-31-2022 End: 12-31-2022 Office outpatient visit 25 minutes Jacob Jennings DO Work Phone: [facility] Comment on above: Essential hypertensi on (Primary Dx); Chronic obstructive pulmonary disease with acute exacerbation (HCC); Aortic stenosis, mild; Bruit of right carotid artery; Skin lesion of face; Hypercholesterolemia; Adenosquamous carcinoma of lung, left (HCC); Coronary artery disease involving [place] coronary artery of [place] heart without angina pectoris Start: 12-30-2022 Non-patient / Non-visit Dr. Rajan Jennings Work Phone: [facility] Start: 12-29-2022 End: 12-29-[address] Jacob Jennings Work Phone: [facility] Work Phone: Start: 12-29-2022 End: 12-29-[address] Jacob Jennings Work Phone: [facility]-Pulmonary Services/Neurology Start: 12-25-2022 Non-patient / Non-visit Dr. Rajan Jennings Work Phone: [facility] Start: 12-25-2022 End: 12-25-[address] Jacob Jennings Work Phone: [facility] Work Phone: Start: 12-25-2022 End: 12-25-[address] Jacob Jennings Work Phone: [facility]-Pulmonary Services/Neurology Start: 12-16-2022 End: 12-16-[address] Jacob Jennings Work Phone: [facility] Start: 12-16-[address] Yahir Jennings Work Phone: [facility] On[facility] Start: 12-16-2022 End: 12-16-[address] Jacob Jennings Work Phone: [facility] Start: 11-25-2022 End: 11-25-[address] Jacob Jennings Work Phone: [facility] Start: 11-24-2022 End: 11-24-[address] [facility] Start: 11-21-2022 Non-patient / Non-visit Dr. Rajan Jennings Work Phone: [facility] Inpatient Physicians Start: 11-20-2022 Non-patient / Non-visit Dr. Rajan Jennings Work Phone: [facility] Inpatient Physicians Start: 11-19-2022 End: 11-21-2022 Evaluation and management of inpatient [facility]. [facility] Start: 11-17-2022 [facility]ulatory [facility] Start: 11-17-2022 Patient encounter procedure [facility] Start: 11-17-2022 End: 11-17-2022 Office outpatient visit 15 minutes Gaby Montiel NP Work Phone: [facility] Comment on above: Chronic obstructive pulmonary disease with acute exacerbation (HCC) (Primary Dx) Start: 11-13-[address] Yahir Jennings Work Phone: [facility] On[facility] Start: 11-13-2022 End: 11-13-[address] Jacob Jennings Work Phone: [facility] Start: 11-04-2022 End: 11-04-[address] Jacob Jennings Work Phone: [facility] Start: 10-16-2022 End: 11-28-2022 ambulatory KINSEY KING MD Facility:A Start: 10-16-2022 End: 11-28-2022 Radiation Therapy KISNEY KING MD [facility] Start: 10-15-2022 End: 10-15-[address] Jacob Jennings Work Phone: [facility] Start: 10-14-2022 End: 10-14-[address] Jacob Jennings Work Phone: [facility] Work Phone: Start: 10-14-2022 End: 10-14-[address] Jacob Jennings Work Phone: [facility] Start: 10-14-[address] Yahir Jennings Work Phone: [facility] Start: 10-14-2022 End: 10-14-[address] Jacob Jennings Work Phone: [facility] Start: 09-23-2022 End: 09-23-[address] Jacob Jennings Work Phone: [facility] Start: 09-11-2022 End: 09-11-[address] Jacob Jennings Work Phone: [facility] Start: 09-08-2022 End: 09-08-[address] Jacob Jennings Work Phone: [facility] Work Phone: Start: 09-08-2022 End: 09-08-[address] Jacob Jennings Work Phone: [facility] Start: 09-02-[address] Yahir Jennings Work Phone: [facility] Start: 09-02-2022 End: 09-02-[address] Jacob Jennings Work Phone: [facility] Start: 08-12-2022 End: 08-12-[address] Jacob Jennings Work Phone: [facility] Start: 08-01-2022 End: 08-01-[address] Jacob Jennings Work Phone: [facility] Start: 07-22-2022 End: 07-22-[address] Jacob Jennings Work Phone: [facility] Start: 07-15-2022 End: 07-15-[address] Jacob Jennings Work Phone: [facility] Start: 07-15-2022 End: 07-15-[address] Jacob Jennings Work Phone: [facility] Start: 06-24-2022 End: 06-24-[address] Jacob Jennings Work Phone: [facility] Start: 06-03-2022 End: 06-03-[address] Jacob Jennings Work Phone: [facility] Start: 05-27-2022 End: 05-27-[address] Jacob Jennings Work Phone: [facility] Start: 03-11-[address] Yahir Jennings Work Phone: [facility] Start: 03-11-2022 End: 03-11-[address] Jacob Jennings Work Phone: [facility] Start: 03-04-2022 End: 03-04-[address] Jacob Jennings Work Phone: [facility] Start: 02-21-2022 End: 02-21-[address] Jacob Jennings Work Phone: [facility] Start: 02-18-2022 End: 02-18-[address] Jacob Jennings Work Phone: [facility] Start: 01-28-2022 End: 01-28-[address] Jacob Jennings Work Phone: [facility] Start: 01-07-2022 End: 01-07-[address] Jacob Jennings Work Phone: [facility] Start: 12-17-2021 End: 12-17-[address] Jacob Jennings Work Phone: [facility] Start: 12-03-2021 End: 12-03-[address] Jacob Jennings Work Phone: [facility] Start: 11-26-2021 End: 11-26-[address] Jacob Jennings Work Phone: [facility] Start: 11-19-2021 End: 11-19-[address] Jacob Jennings Work Phone: [facility] Start: 08-01-2021 End: 08-01-2021 Subsequent hospital visit by physician Esthela Montiel CNP Work Phone: [facility] MRI Comment on above: Posterior reversible encephalopathy syndrome; Unspecified convulsions (HCC); PRES (posterior reversible encephalopathy syndrome); Seizure (HCC) Start: 06-20-2021 End: 06-20-2021 Subsequent hospital visit by physician Esthela Garcia IN SERVICE EDUCATION TEACHER - [employer]IVERY Work Phone: [facility] Comment on above: Seizure (HCC) Start: 05-15-2021 End: 05-17-2021 Evaluation and management of inpatient Tono Birch MD Work Phone: [facility] 3W TELEMETRY Comment on above: Ataxia (Primary Dx); Hypertension, unspecified type; Encephalopathy; Vision loss; Aphasia; Seizure (HCC) Start: 03-12-2021 End: 03-15-2021 Evaluation and management of inpatient Anaid Zee MD Work Phone: [facility] Comment on above: Adenosquamous carcin marleen of lung, left (HCC) (Primary Dx) Start: 02-20-2021 End: 02-20-2021 Subsequent hospital visit by physician Jose Miguel Foster Work Phone: [facility] General Surgery Comment on above: Arrived Start: 02-14-2021 End: 02-14-2021 Subsequent hospital visit by physician Jose Miguel Foster Work Phone: [facility] Comment on above: Lung mass Start: 01-28-2021 End: 01-28-2021 Subsequent hospital visit by physician Jacob Jennings Work Phone: [facility] Comment on above: Smoker Start: 01-25-2021 End: 01-25-2021 Subsequent hospital visit by physician Jacob Jennings Work Phone: [facility] Comment on above: Arrived Start: 07-13-2020 End: 07-13-2020 Subsequent hospital visit by physician Jacob Jennings Work Phone: [facility] Comment on above: Right carotid bruit Start: 07-15-2019 End: 07-15-2019 Subsequent hospital visit by physician Jacob Jennings Work Phone: [facility] Comment on above: Claudication of righ t lower extremity (HCC) Procedures Date Procedure Procedure Detail Performing Clinician Start: 09-07-2025 Adult depression screening assessment Eleuterio Hatch MD Work Phone: Start: 09-07-2025 Lipid 1996 panel - Serum or Plasma Sched ule Fp Start: 08-22-[address] Yahir Jennings DO Work Phone: Start: 08-22-2025 Mean corpuscular hemoglobin concentration determination Dr. Jacob Jennings DO Work Phone: Start: 08-22-[address] Jacob Jennings DO Work Phone: Start: 08-22-2025 Nucleated red blood cell count procedure Dr. Jacob Jennings DO Work Phone: Start: 08-22-2025 Platelet mean volume determination Dr. Carroll Jennings DO Work Phone: Start: 08-22-2025 Serum inorganic phosphate measurement Dr. Jacob Jennings DO Work Phone: Start: 08-19-2025 CT of upper limb without contrast Dr. Rajan Jennings DO Work Phone: Start: 08-19-2025 End: 08-19-2025 Radex forearm 2 views Tono Birch MD Work Phone: Start: 08-19-2025 Bacteria identified in Blood by Culture Tono Birch MD Work Phone: Start: 08-19-2025 Basic metabolic panel calcium total Tono Birch MD Work Phone: Start: 08-19-2025 C-reactive protein Tono Birch MD Work Phone: Start: 08-16-[address] Yahir Jennings DO Work Phone: Start: 08-16-2025 Mean corpuscular hemoglobin concentration determination Dr. Jacob Jennings DO Work Phone: Start: 08-16-[address] Jacob Jennings DO Work Phone: Start: 08-16-2025 Nucleated red blood cell count procedure Dr. Jacob Jennings DO Work Phone: Start: 08-16-2025 Platelet mean volume determination Dr. Carroll Jennings DO Work Phone: Start: 08-16-2025 Serum inorganic phosphate measurement Dr. Jacob Jennings DO Work Phone: Start: 07-26-[address] Yahir Jennings DO Work Phone: Start: 07-26-2025 Serum inorganic phosphate measurement Dr. Jacob Jennings DO Work Phone: Start: 07-05-2025 Blood count smear mcrscp w/mnl difrntl wbc count Dr. Jacob Jennings DO Work Phone: Start: 07-05-[address] Yahir Jennings DO Work Phone: Start: 07-05-2025 Mean corpuscular hemoglobin concentration determination Dr. Jacob Jennings DO Work Phone: Start: 07-05-2025 Nucleated red blood cell count procedure Dr. Jacob Jennings DO Work Phone: Start: 07-05-2025 Platelet mean volume determination Dr. Carroll Jennings DO Work Phone: Start: 07-05-2025 Serum inorganic phosphate measurement Dr. Jacob Jennings DO Work Phone: Start: 06-28-2025 CT of thorax, abdomen and pelvis with contrast Dr. Jacob Jennings DO Work Phone: Start: 06-15-2025 Blood count smear mcrscp w/mnl difrntl wbc count Dr. Jacob Jennings DO Work Phone: Start: 06-15-[address] Yahir Jennings DO Work Phone: Start: 06-15-2025 Mean corpuscular hemoglobin concentration determination Dr. Jacob Jennings DO Work Phone: Start: 06-15-2025 Nucleated red blood cell count procedure Dr. Jacob Jennings DO Work Phone: Start: 06-15-2025 Platelet mean volume determination Dr. Carroll Jennings DO Work Phone: Start: 06-15-2025 Serum inorganic phosphate measurement Dr. Jacob Jennings DO Work Phone: Start: 06-15-2025 Total iron binding capacity measurement Dr. Jacob Jennings DO Work Phone: Start: 05-24-[address] Yahir Jennings DO Work Phone: Start: 05-24-2025 Serum inorganic phosphate measurement Dr. Jacob Jennings DO Work Phone: Start: 05-18-2025 Mri brain brain stem w/o w/contrast material Francois Acevedo MD Work Phone: Start: 05-02-2025 Blood count smear mcrscp w/mnl difrntl wbc count Dr. Jacob Jennings DO Work Phone: Start: 05-02-[address] Yahir Jennings DO Work Phone: Start: 05-02-2025 Mean corpuscular hemoglobin concentration determination Dr. Jacob Jennings DO Work Phone: Start: 05-02-2025 Nucleated red blood cell count procedure Dr. Jacob Jennings DO Work Phone: Start: 05-02-2025 Platelet mean volume determination Dr. Carroll Jennings DO Work Phone: Start: 05-02-2025 Serum inorganic phosphate measurement Dr. Jacob Jennings DO Work Phone: Start: 05-02-2025 Total iron binding capacity measurement Dr. Jacob Jennings DO Work Phone: Start: 04-18-2025 Adult depression screening assessment Jacob Jennings DO Work Phone: Start: 04-12-2025 Blood count smear mcrscp w/mnl difrntl wbc count Dr. Jacob Jennings DO Work Phone: Start: 04-12-[address] Yahir Jennings DO Work Phone: Start: 04-12-2025 Mean corpuscular hemoglobin concentration determination Dr. Jacob Jennings DO Work Phone: Start: 04-12-2025 Nucleated red blood cell count procedure Dr. Jacob Jennings DO Work Phone: Start: 04-12-2025 Platelet mean volume determination Dr. Carroll Jennings DO Work Phone: Start: 04-12-2025 Serum inorganic phosphate measurement Dr. Jacob Jennings DO Work Phone: Start: 03-29-2025 Blood count smear mcrscp w/mnl difrntl wbc count Dr. Jacob Jennings DO Work Phone: Start: 03-29-2025 Mean corpuscular hemoglobin concentration determination Dr. Jacob Jennings DO Work Phone: Start: 03-29-2025 Nucleated red blood cell count procedure Dr. Jacob Jennings DO Work Phone: Start: 03-29-2025 Platelet mean volume determination Dr. Carroll Jennings DO Work Phone: Start: 03-29-[address] Yahir Jennings DO Work Phone: Start: 03-29-2025 Serum inorganic phosphate measurement Dr. Jacob Jennings DO Work Phone: Start: 03-24-2025 Blood count smear mcrscp w/mnl difrntl wbc count Dr. Jacob Jennings DO Work Phone: Start: 03-24-[address] Yahir Jennings DO Work Phone: Start: 03-24-2025 Flow cytometry cell surf marker techl only 1st Dr. Jacob Jennings DO Work Phone: Start: 03-24-2025 Mean corpuscular hemoglobin concentration determination Dr. Jacob Jennings DO Work Phone: Start: 03-24-2025 Myelocyte percent differential count Dr. Jacob Jennings DO Work Phone: Start: 03-24-2025 Platelet mean volume determination Dr. Carroll Jennigns DO Work Phone: Start: 03-23-2025 Nucleated red blood cell count procedure Dr. Jacob Jennings DO Work Phone: Start: 03-22-[address] Jacob zaragoza DO Work Phone: Start: 03-21-[address] Jacob Jennings DO Work Phone: Start: 03-21-[address] Jacob archuleta DO Work Phone: Start: 03-21-2025 Legionella pneumophila antigen assay Dr. Jacob Jennings DO Work Phone: Start: 03-21-[address] Jacob Jennings DO Work Phone: Start: 03-21-[address] Jacob Jennings DO Work Phone: Start: 03-21-2025 End: 03-21-2025 Streptococcus pneumoniae antigen assay Dr. Jacob Jennings DO Work Phone: Start: 03-21-2025 Blood count smear mcrscp w/mnl difrntl wbc count Dr. Jacob Jennings DO Work Phone: Start: 03-21-2025 Mean corpuscular hemoglobin concentration determination Dr. Jacob Jennings DO Work Phone: Start: 03-21-2025 Nucleated red blood cell count procedure Dr. Jacob Jennings DO Work Phone: Start: 03-21-2025 Platelet mean volume determination Dr. Carroll Jennings DO Work Phone: Start: 03-21-[address] Yahir Jennings DO Work Phone: Start: 03-21-2025 Serum inorganic phosphate measurement Dr. Jacob Jennings DO Work Phone: Start: 03-21-[address] Carroll Jennings DO Work Phone: Start: 03-21-2025 CT of thorax, abdomen and pelvis with contrast Dr. Jacob Jennings DO Work Phone: Start: 03-15-2025 Blood count smear mcrscp w/mnl difrntl wbc count Dr. Jacob Jennings DO Work Phone: Start: 03-15-[address] Yahir Jennings DO Work Phone: Start: 03-15-2025 Mean corpuscular hemoglobin concentration determination Dr. Jacob Jennings DO Work Phone: Start: 03-15-2025 Nucleated red blood cell count procedure Dr. Jacob Jennings DO Work Phone: Start: 03-15-2025 Platelet mean volume determination Dr. Carroll Jennings DO Work Phone: Start: 03-15-2025 Serum inorganic phosphate measurement Dr. Jacob Jennings DO Work Phone: Start: 03-15-2025 Total iron binding capacity measurement Dr. Jacob Jennings DO Work Phone: Start: 02-21-2025 Adult depression screening assessment Jacob Jennings DO Work Phone: Start: 01-18-2025 Serum inorganic phosphate measurement Dr. Jacob Jennings DO Work Phone: Start: 01-17-[address] Rajan Jennings DO Work Phone: Start: 01-17-2025 Blood count smear mcrscp w/mnl difrntl wbc count Dr. Jacob Jennings DO Work Phone: Start: 01-17-[address] Yahir Jennings DO Work Phone: Start: 01-17-2025 Flow cytometry cell surf marker techl only 1st Dr. Jacob Jennings DO Work Phone: Start: 01-17-2025 Mean corpuscular hemoglobin concentration determination Dr. Jacob Jennings DO Work Phone: Start: 01-17-2025 Myelocyte percent differential count Dr. Jacob Jennings DO Work Phone: Start: 01-17-2025 Platelet mean volume determination Dr. Carroll Jennings DO Work Phone: Start: 01-16-2025 CT of head without contrast Dr. Jacob stallworth DO Work Phone: Start: 01-16-2025 Blood disorder - initial assessment Dr. Jacob Jennings DO Work Phone: Start: 01-13-2025 Calculation of international normalized ratio Dr. Jacob Jennings DO Work Phone: Start: 01-12-[address] Jacob Jennings DO Work Phone: Start: 01-12-[address] Jacob archuleta DO Work Phone: Start: 01-12-[address] Jacob Jennings DO Work Phone: Start: 01-12-2025 Nucleated red blood cell count procedure Dr. Jacob Jennings DO Work Phone: Start: 01-12-2025 Carbon dioxide measurement, partial pressure Dr. Jacob Jennings DO Work Phone: Start: 01-12-2025 Gases blood o2 saturation only direct deangelo Dr. Jacob Jennings DO Work Phone: Start: 01-12-2025 Measurement of partial pressure of oxygen in blood Dr. Jacob Jennings DO Work Phone: Start: 01-12-[address] Jacob Jennings DO Work Phone: Start: 01-11-2025 Plain chest X-ray Dr. Jacob Jennings DO Work Phone: Start: 01-11-[address] Lobito Jennings DO Work Phone: Start: 01-10-2025 Urine microscopy: red cells Dr. Jacob stallworth DO Work Phone: Start: 01-10-2025 Urnls dip stick/tablet reagent auto microscopy Dr. Jacob Jennings DO Work Phone: Start: 01-10-2025 Dr. Jacob Jennings DO Work Phone: Start: 01-10-2025 CT of thorax, abdomen and pelvis with contrast Dr. Jacob Jennings DO Work Phone: Start: 01-10-2025 Plain chest X-ray Dr. Jacob Jennings DO Work Phone: Start: 01-10-2025 CT of head without contrast Dr. Jacob stallworth DO Work Phone: Start: 01-07-2025 Iadna-dna/rna gi pthgn multiplex probe tq 6-11 Dr. Jacob Jennings DO Work Phone: Start: 01-07-[address] Jacob alicea DO Work Phone: Start: 01-07-[address] Jacob Jennings DO Work Phone: Start: 01-07-2025 Blood count smear mcrscp w/mnl difrntl wbc count Dr. Jacob Jennings DO Work Phone: Start: 01-07-[address] Yahir Jennings DO Work Phone: Start: 01-07-2025 Mean corpuscular hemoglobin concentration determination Dr. Jacob Jennings DO Work Phone: Start: 01-07-2025 Nucleated red blood cell count procedure Dr. Jacob Jennings DO Work Phone: Start: 01-07-2025 Platelet mean volume determination Dr. Carroll Jennings DO Work Phone: Start: 12-21-2024 Measurement of renal function Dr. Jacob Jennings DO Work Phone: Comment on above: GFR Calc Start: 12-16-[address] Jacob archuleta DO Work Phone: Start: 12-16-2024 Blood count smear mcrscp w/mnl difrntl wbc count Dr. Jacob Jennings DO Work Phone: Start: 12-16-2024 BUN/Creatinine ratio Dr. Jacob Jennings DO Work Phone: Start: 12-16-[address] Yahir Jennings DO Work Phone: Start: 12-16-2024 Mean corpuscular hemoglobin concentration determination Dr. Jacob Jennings DO Work Phone: Start: 12-16-2024 Measurement of renal function Dr. Jacob Jennings DO Work Phone: Start: 12-16-2024 Nucleated red blood cell count procedure Dr. Jacob Jennings DO Work Phone: Start: 12-16-2024 Platelet mean volume determination Dr. aCrroll Jennings DO Work Phone: Start: 12-15-2024 Albumin/Globulin ratio Dr. Jacob lovett DO Work Phone: Start: 12-14-2024 Plain chest X-ray Dr. Jacob Jennings DO Work Phone: Start: 12-14-[address] Jacob archuleta DO Work Phone: Start: 12-14-2024 Legionella pneumophila antigen assay Dr. Jacob Jennings DO Work Phone: Start: 12-14-[address] Jacob Jennings DO Work Phone: Start: 12-14-[address] Jacob Jennings DO Work Phone: Start: 12-14-2024 End: 12-14-2024 Streptococcus pneumoniae antigen assay Dr. Jacob Jennings DO Work Phone: Start: 12-14-2024 Dr. Jacob Jennings DO Work Phone: Start: 11-11-2024 Mri brain brain stem w/o w/contrast material Kesha Fegatelli IN SERVICE EDUCATION TEACHER.[employer]IVERY Work Phone: Start: 10-20-2024 Follow-up visit Follow-up JACOB JENNINGS Start: 10-20-2024 Adult depression screening assessment Jacob Jennings DO Work Phone: Start: 10-18-[address] Jacob lovett DO Work Phone: Start: 10-18-[address] Jacob gonzalez DO Work Phone: Start: 05-17-2024 Mri brain brain stem w/o w/contrast material Kesha Fegatelli IN SERVICE EDUCATION TEACHER.[employer]ERY Work Phone: Start: 03-09-2024 X-ray of cervical spine Dr. Jacob alicea Work Phone: Start: 03-08-2024 Cervical arthrodesis by anterior technique Dr. Jacob Jennings Work Phone: Start: 03-08-[address] Jacob archuleta Work Phone: Start: 03-08-2024 X-ray of cervical spine Dr. Jacob alicea Work Phone: Start: 03-01-2024 Nasal Screen MRSA/MSSA Dr. Jacob lovett Work Phone: Start: 02-15-2024 Mri brain brain stem w/o w/contrast material Kesha Fegatelli IN SERVICE EDUCATION TEACHER.[employer]ERY Work Phone: Start: 01-15-2024 X-ray of cervical spine Dr. Jacob alicea Work Phone: Start: 01-13-2024 CT of chest and abdomen Dr. Jacob alicea Work Phone: Start: 01-09-2024 Lipid 1996 panel - Serum or Plasma Yahir Jennings DO Work Phone: Start: 01-06-2024 MRI of cervical spine with contrast Dr. Jacob Jennings Work Phone: Start: 01-06-2024 MRI of thoracic spine with contrast Dr. Jacob Jennings Work Phone: Start: 10-18-2023 CT of head without contrast Dr. Jacob stallworth Work Phone: Start: 10-18-2023 Plain chest X-ray Dr. Jacob Jennings Work Phone: Start: 10-05-2023 CT of chest and abdomen Dr. Jacob alicea Work Phone: Start: 09-02-2023 CT angiography of chest with contrast Dr. Jacob Jennings Work Phone: Start: 08-26-[address] Jacob zaragoza DO Work Phone: Start: 07-01-2023 CT of chest and abdomen Dr. Jacob alicea Work Phone: Start: 06-17-2023 Allergen spec ige crude allergen extract each Dr. Jacob Jennings DO Work Phone: Start: 06-06-2023 Mri brain brain stem w/o w/contrast material Kesha Dey APRN.CNP Work Phone: Start: 05-21-[address] Lobito Jennings Work Phone: Start: 05-21-[address] Jacob Jennings DO Work Phone: Start: 05-21-[address] Jacob Jennings Work Phone: Start: 05-21-2023 Dr. Jacob Jennings DO Work Phone: Start: 05-04-[address] Jacob zaragoza Work Phone: Start: 05-04-2023 Plain chest X-ray Dr. Jacob Jennings Work Phone: Start: 05-03-2023 Investigation of transfusion reaction Dr. Jacob Jennings Work Phone: Start: 05-03-2023 Measurement of occult blood in stool specimen using immunoassay Dr. Jacob Jennings Work Phone: Start: 05-03-[address] Jacob Jennings Work Phone: Start: 05-02-2023 Bacteria identified in Blood by Culture Dr. Jacob Jennings Work Phone: Start: 05-02-2023 CT angiography of chest with contrast Dr. Jacob Jennings Work Phone: Start: 05-02-2023 Plain chest X-ray Dr. Jacob Jennings Work Phone: Start: 03-19-2023 CT of head without contrast Dr. Jacob stallworth Work Phone: Start: 03-16-2023 MRI of brain with contrast Dr. Jacob zaragoza Work Phone: Start: 03-13-2023 CT of chest, abdomen and pelvis without contrast Dr. Jacob Jennings Work Phone: Start: 03-10-[address] Jacob zaragoza DO Work Phone: Start: 01-21-2023 MRI of brain with contrast Dr. Jacob zaragoza Work Phone: Start: 12-29-2022 CT of chest, abdomen and pelvis without contrast Dr. Jacob Jennings Work Phone: Start: 12-16-2022 MRI of brain with contrast Dr. Jacob zaragoza Work Phone: Start: 11-19-2022 Plain chest X-ray Dr. Jacob Jennings Work Phone: Start: 10-14-2022 MRI of brain with contrast Dr. Jacob zaragoza Work Phone: Start: 09-08-2022 CT of chest, abdomen and pelvis without contrast Dr. Jacob Jennings Work Phone: Start: 05-27-2022 CT of chest, abdomen and pelvis without contrast Dr. Jacob Jennings Work Phone: Start: 04-04-2022 Measurement of occult blood in stool specimen using immunoassay Dr. Jacob Jennings Work Phone: Start: 03-04-2022 CT of chest, abdomen and pelvis without contrast Dr. Jacob Jennings Work Phone: Start: 01-06-2022 Lipid 1996 panel - Serum or Plasma Merlene Andino RN Start: 12-03-2021 CT of abdomen and pelvis without contrast Dr. Jacob Jennings Work Phone: Start: 09-17-[address] Jacob zaragoza DO Work Phone: Start: 08-01-2021 Mri brain brain stem w/o w/contrast material Esthela Garcia IN SERVICE EDUCATION TEACHER - [employer] Work Phone: Start: 05-17-2021 Ecg routine ecg w/least 12 lds w/i&r Carine Morin MD Work Phone: Start: 05-17-2021 Hemoglobin glycosylated a1c Carine lieberman MD Work Phone: Start: 05-16-2021 Speech and language therapy regime Anthony Morin MD Work Phone: Start: 05-16-2021 EEG Celsa Wu IN SERVICE EDUCATION TEACHER - [employer] Work Phone: Start: 05-16-2021 Echo tthrc r-t 2d w/wom-mode compl spec&colr d Celsa Wu IN SERVICE EDUCATION TEACHER - [employer] Work Phone: Start: 05-16-2021 Mri brain brain stem w/o w/contrast material Celsa Wu IN SERVICE EDUCATION TEACHER - [employer] Work Phone: Start: 05-16-2021 Assay of magnesium Carine Morin MD Work Phone: Start: 05-16-2021 BASIC METABOLIC PANEL W/ REFLEX TO MG FOR LOW K Carine Morin MD Work Phone: Start: 05-16-2021 Radiologic exam abdomen 1 view Carine Morin MD Work Phone: Start: 05-16-2021 Hemoglobin glycosylated a1c Celsa harvey IN SERVICE EDUCATION TEACHER [employer] [facility] Work Phone: Start: 05-16-2021 Lipid panel Celsa Wu [facility] [employer] [facility] Work Phone: Start: 05-15-2021 Blood count complete automated Tono Birch MD Work Phone: Start: 05-15-2021 Speech and language therapy regime Mikayla Wu IN SERVICE EDUCATION TEACHER [employer] [facility] Work Phone: Start: 05-15-2021 Ct head/brain w/o contrast material Mauri Hernandez DO Work Phone: Start: 05-15-2021 Ecg routine ecg w/least 12 lds w/i&r Tono Birch MD Work Phone: Start: 05-15-2021 Gluc bld gluc mntr dev cleared fda spec home use Tee Esposito MD Work Phone: Start: 05-15-2021 ADD ON LAB TEST Carine Morin MD Work Phone: Start: 05-15-2021 Urnls dip stick/tablet rgnt auto w/o microscopy Tono Birch MD Work Phone: Start: 05-15-2021 Radiologic exam chest single view Amparo Birch MD Work Phone: Start: 05-15-[address] w/blood flow&volume Tono Birch MD Work Phone: Start: 05-15-2021 Assay of ethanol Unknown Provider Result Start: 05-15-2021 End: 05-15-2021 Gonadotropin chorionic qualitative Rah Birch MD Work Phone: Start: 05-15-2021 End: 05-15-2021 Ct angiography head w/contrast/noncontrast Tono Birch MD Work Phone: Start: 05-15-2021 PROTIME/INR & PTT Unknown Provider Result Start: 05-15-2021 Ecg routine ecg w/least 12 lds w/i&r Tono Birch MD Work Phone: Start: 05-15-2021 POC BMP, WHOLE BLOOD Unknown Provider Result Start: 03-15-2021 HOME O2 EVAL (DESATURATION SCREEN) Noam Hernandez MD Work Phone: Start: 03-15-2021 Radiologic exam chest single view Aide Hernandez MD Work Phone: Start: 03-15-2021 Basic metabolic panel calcium total Evelio Hernandez MD Work Phone: Start: 03-15-2021 Radiologic exam chest single view Merlene J ackson IN SERVICE EDUCATION TE[employer]ER [employer] Work Phone: Start: 03-14-2021 Radiologic exam chest single view Merlene J ackson IN SERVICE EDUCATION TEACHER - [employer] Work Phone: Start: 03-13-2021 Radiologic exam chest single view Merlene J ackson IN SERVICE EDUCATION TEACHER [employer] Work Phone: Start: 03-13-2021 Blood count complete automated Merlene raphael IN SERVICE EDUCATION TEACHER [employer] Work Phone: Start: 03-12-2021 Radiologic exam chest single view Merlene J ackson IN SERVICE EDUCATION TEACHER - [employer] Work Phone: Start: 03-12-2021 OPERATIVE REPORT 3m Scanning Start: 03-12-2021 Radiologic exam chest single view Megha Don IN SERVICE EDUCATION TEACHER - [employer] Work Phone: Start: 03-12-2021 Antibody screen Anaid Zee MD Work Phone: Start: 03-12-2021 Blood typing serologic abo Dawit Nava O Work Phone: Start: 03-12-2021 Comprehensive metabolic panel Dawit rey DO Work Phone: Start: 03-12-2021 Ecg routine ecg w/least 12 lds w/i&r Megha Don IN SERVICE EDUCATION TEACHER - [employer] Work Phone: Start: 02-20-2021 OPERATIVE REPORT 3m Scanning Start: 02-20-2021 Radiologic exam chest single view Jose Miguel mantilla Work Phone: Start: 02-14-[address] attenuation skull base mid-thigh Jose Miguel Foster Work Phone: Start: 01-28-2021 CT LUNG SCREENING Jacob Jennings Work Phone: Start: 01-25-2021 Non-invasive physiologic study extremity 3 levls Jacob Jennings Work Phone: Start: 07-13-2020 Duplex scan extracranial art compl bi study Jacob Jennings Work Phone: Start: 07-15-2019 N-invas physiologic std lxtr art compl bi Jacob Jennings Work Phone: Start: 02-21-2019 Colonoscopy Francois Acevedo MD Work Phone: Start: 01-05-2004 Coronary angioplasty KINSEY KING MD Start: 01-04-2004 Lipid 1996 panel - Serum or Plasma Stephen Acevedo MD Work Phone: Start: 07-17-2003 History of placement of stent for coronary artery disease History of coronary artery stent placement Dr. Thien Sandoval MD Comment on above: [id number] w/ 2.25 x 18 mm Biodivysio Stent x 2, BMS-OM1 w/ 2.25 x 18 mm Biodivysio Stent and 2.25 x 18 mm Pixel Stent and MARVIN-Prox LCx w/ 3.5 x 18 mm Cypher Stent 07/17/2003 Start: 07-17-2003 Placement of stent KINSEY KING MD Comment on above: coronary artery stent placement Investigation of tra nsfusion reaction Dr. Jacob Jennings Work Phone: Investigation of tra nsfusion reaction Dr. Jacob Jennings Work Phone: Legionella pneumophi la antigen assay Dr. Jacob Jennings Work Phone: Legionella pneumophi la antigen assay Dr. Jacob Jennings Work Phone: Lobectomy of lung KINSEY LOPEZ MD Malignant neoplasm o f skin (disorder) KINSEY KING MD Measurement of occul t blood in stool specimen using immunoassay Dr. Jacob Jennings Work Phone: Respiratory microbial culture Dr. Jacob Jennings Work Phone: Respiratory Panel (PCR) Dr. Jacob Jennings Work Phone: Respiratory Panel (PCR) Dr. Jacob Jennings Work Phone: SARS-CoV-2 & FLU Antigen (Rapid) Dr. Jacob Jennings Work Phone: Streptococcus pneumo niae Antigen (M Dr. Jacob Jennings Work Phone: Streptococcus pneumo niae Antigen (M Dr. Jacob Jennings Work Phone: Total nephrectomy KINSEY LOPEZ MD Comment on above: left Viral antigen assay Dr. Lobito Jennings Work Phone: Plan of Treatment Date Care Activity Detail Author Start: 08-19-2035 DTaP/Tdap/Td Vaccines (2 - Td or Tdap) DTaP/Tdap/Td Vaccines (2 - Td or Tdap) [facility] Start: 02-21-2029 Colon cancer screen colonoscopy Colon cancer screen colonoscopy [place], [place] Start: 02-21-2029 Screening for malignant neoplasm of colon Colon cancer screen colonoscopy [place] Start: 01-08-2029 Lipid panel [facility] Start: 2028 RSV Vaccine (1 - 1-dose 75+ series) RSV Vaccine (1 - 1-dose 75+ series) [facility] Start: 12-30-2027 Diabetes Screening Diabetes Screening [facility] Start: 01-06-2027 Lipid 1996 panel - Serum or Plasma Lipid Screening [facility] Start: 01-06-2027 Lipid panel [facility] Start: 09-07-2026 Creatinine measurement Creatinine Level [facility] Start: 09-07-2026 Depression Screening Depression Screening [facility] Start: 09-07-2026 Diabetes: Estimated Glomerular Filtration Rate for Kidney Health Diabetes: Estimated Glomerular Filtration Rate for Kidney Health [facility] Start: 09-07-2026 Lipid panel Lipid Panel [facility] Start: 09-07-2026 Potassium measurement Potassium Level [facility] Start: 08-19-2026 Creatinine measurement Creatinine Level [facility] Start: 08-19-2026 Diabetes: Estimated Glomerular Filtration Rate for Kidney Health Diabetes: Estimated Glomerular Filtration Rate for Kidney Health [facility] Start: 08-19-2026 Potassium measurement Potassium Level [facility] Start: 05-18-2026 Medicare Annual Wellness (AWV) Medicare Annual Wellness (AWV) [facility] Start: 04-19-2026 End: 04-19-2026 Patient encounter procedure 04/19/2026 10:20 AM EDT Office Visit [facility] [address] [place] [address] Celsa Jacobs, LEXI - [employer] [address] [place] [address] [facility] Start: 04-18-2026 Depression Screening Depression Screening [facility] Start: 02-21-2026 Depression Screening Depression Screening [facility] Start: 12-30-2025 Creatinine measurement Creatinine Level [facility] Start: 12-30-2025 Diabetes: Estimated Glomerular Filtration Rate for Kidney Health Diabetes: Estimated Glomerular Filtration Rate for Kidney Health [facility] Start: 12-30-2025 Potassium measurement Potassium Level [facility] Start: 11-17-2025 End: 11-17-2025 Patient encounter procedure 11/17/2025 10:30 AM EST Office Visit [facility] [address] [place] [facility] [phone] Francois Acevedo MD [address] [place] [address] 6 mon fu with MRI [facility] Comment on above: 6 mon fu with MRI Start: 11-13-2025 End: 11-13-2025 Patient encounter procedure 11/13/2025 11:00 AM EST Appointment Radiology [address] [place] [address] MRI BRAIN WO/W IVCON Radiology Comment on above: MRI BRAIN WO/W IVCON Start: 10-20-2025 Depression Screening Depression Screening [facility] Start: 09-29-2025 End: 09-29-2025 Clinical Support 09/29/2025 11:00 AM EST Clinical Support [facility] [address] [facility] [place] [address] [facility] Start: 09-14-2025 End: 09-14-2025 Clinical Support 09/14/2025 11:30 AM EST Clinical Support [facility] [address] [facility] [place] [address] [facility] [place] Start: 09-07-2025 End: 09-07-2025 Patient encounter procedure 09/07/2025 2:30 PM EDT Office Visit [facility] [address] [facility] [place] [address] Eleuterio Hatch MD [address] [place] [address] [place] [address] [facility] Start: 09-07-2025 End: 09-07-2026 Comprehensive metabolic 1998 panel - Serum or Plasma Comprehensive metabolic panel Lab Routine Screening for diabetes mellitus Expected: 09/07/2025 (Approximate), Expires: 09/07/2026 [facility] Work Phone: Comment on above: Expected: 09/07/2025 (Approximate), Expi res: 09/07/2026 Start: 09-07-2025 End: 09-07-2026 Lipid 1996 panel - Serum or Plasma Lipid panel Lab Routine Hypercholesterolemia Expected: 09/07/2025 (Approximate), Expires: 09/07/2026 [facility] Comment on above: Expected: 09/07/2025 (Approximate), Expi res: 09/07/2026 Start: 09-07-2025 End: 09-07-2026 PSA Total (Screening) PSA Total (Screening) Lab Routine Elevated PSA Screening for prostate cancer Expected: 09/07/2025 (Approximate), Expires: 09/07/2026 [facility] Comment on above: Expected: 09/07/2025 (Approximate), Expi res: 09/07/2026 Start: 09-06-2025 Serum inorganic phosphate measurement [facility] Start: 09-06-2025 [facility] Start: 08-24-2025 End: 08-24-2025 [facility] Work Phone: Start: 08-22-2025 Patient discharge [facility] Start: 08-20-2025 Consultation [facility] Start: 08-19-2025 Ambulation without limitation [facility] Start: 08-19-2025 Assessment of risk of venous thromboembolism [facility] Start: 08-19-2025 Insertion of catheter into peripheral vein [facility] Start: 08-19-2025 Oxygen therapy [facility] Start: 08-19-2025 Providing care according to standard [facility] Start: 08-19-2025 [facility] Start: 08-19-2025 Admission procedure [facility] Start: 08-19-2025 Following clinical pathway protocol [facility] Start: 08-19-2025 Venous catheter care management [facility] Start: 08-19-2025 Inhalation therapy procedure [facility] Start: 08-16-2025 T4 free measurement [facility] Start: 08-16-2025 Thyroid stimulating hormone measurement [facility] Start: 08-16-2025 [facility] Start: 07-26-2025 Thyroid stimulating hormone measurement [facility] Start: 07-26-2025 [facility] Start: 07-18-2025 End: 07-18-2025 Patient encounter procedure [facility] [place] Start: 07-10-2025 COVID-19 Vaccine (7 - 2025-26 season) COVID-19 Vaccine ( season) [facility] Start: 07-10-2025 Influenza vaccination Influenza Vaccine (#1) [facility] Start: 07-05-2025 [facility] Start: 06-28-2025 Venous catheter care management [facility] Start: 06-15-2025 [facility] Start: 06-15-2025 [facility] Start: 05-24-2025 [facility] Start: 05-23-2025 End: 05-23-2025 Patient encounter procedure 05/23/2025 11:00 AM EDT Office Visit [facility] [address] [place] [phone] Francois Acevedo MD [address] [facility] [address] 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] [facility] Comment on above: Secondary malignant neoplasm of brain (H CC) [C79.31] Start: 05-18-2025 End: 05-18-2025 Patient encounter procedure 05/18/2025 11:00 AM EDT Appointment Radiology [address] [place], [place] [id number] 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] Radiology Comment on above: Secondary malignant neoplasm of brain (H CC) [C79.31] Start: 05-02-2025 [facility] Start: 05-02-2025 [facility] Start: 04-20-2025 End: 04-20-2025 Patient encounter procedure 04/20/2025 1:00 PM EDT Office Visit [facility] [address] [place] [address] Jacob Jennings DO [address] [place] [address] [place] [address] [facility] [place] Start: 04-18-2025 End: 04-18-2025 Patient encounter procedure 04/18/2025 3:40 PM EDT Office Visit [facility] [address] [place] [phone] Jacob Jennings, DO [address] [place] [address] [facility] [place] Start: 04-18-2025 End: 04-18-2025 Patient encounter procedure 04/18/2025 2:20 PM EDT Office Visit [facility] [address] [place] [address] Jacob Jennings, DO [address] [place] [address] [facility] Start: 04-12-2025 [facility] Start: 03-29-2025 CBC W Auto Differential panel - Blood [facility] Start: 03-29-2025 [facility] Start: 03-24-2025 Patient discharge [facility] Start: 03-22-2025 [facility] Start: 03-22-2025 Patient referral to [facility] Start: 03-22-2025 Referral to service [facility] Start: 03-21-2025 Following clinical pathway protocol [facility] Start: 03-21-2025 Assessment of risk of venous thromboembolism [facility] Start: 03-21-2025 Fall prevention [facility] Start: 03-21-2025 Insertion of catheter into peripheral vein [facility] Start: 03-21-2025 Introduction of urinary catheter [facility] Start: 03-21-2025 Measuring intake and output [facility] Start: 03-21-2025 Methicillin resistant Staphylococcus aureus screening test [facility] Start: 03-21-2025 Oxygen therapy [facility] Start: 03-21-2025 Patient referral to [facility] Start: 03-21-2025 Providing care according to standard [facility] Start: 03-21-2025 Provision of activity privileges [facility] Start: 03-21-2025 Referral to gastroenterology service [facility] Start: 03-21-2025 Referral to occupational therapist [facility] Start: 03-21-2025 Referral to service [facility] Start: 03-21-2025 Speech therapy assessment [facility] Start: 03-21-2025 [facility] Start: 03-21-2025 Hospital admission, emergency, from emergency room, medical nature [facility] Start: 03-21-2025 Admission procedure [facility] Start: 03-21-2025 Respiratory microbial culture [facility] Start: 03-21-2025 Inhalation therapy procedure [facility] Start: 03-21-2025 Patient referral to dietitian [facility] Start: 01-18-2025 Patient discharge [facility] Start: 01-18-2025 Referral to service [facility] Start: 01-16-2025 [facility] Start: 01-14-2025 Inhalation therapy procedure [facility] Start: 01-12-2025 End: 01-13-2025 [facility] Start: 01-12-2025 Preparation of bowel for procedure [facility] Start: 01-12-2025 Continuous pulse oximetry [facility] Start: 01-12-2025 Attention to flatus tube [facility] Start: 01-12-2025 Continuous positive airway pressure ventilation treatment [facility] Start: 01-12-2025 Dual pressure spontaneous ventilation support [facility] Start: 01-11-2025 [facility] Start: 01-11-2025 Referral to gastroenterology service [facility] Start: 01-10-2025 End: 01-11-2025 [facility] Start: 01-10-2025 Following clinical pathway protocol [facility] Start: 01-10-2025 Venous catheter care management [facility] Start: 01-10-2025 Ambulation without limitation [facility] Start: 01-10-2025 Assessment of risk of venous thromboembolism [facility] Start: 01-10-2025 Insertion of catheter into peripheral vein [facility] Start: 01-10-2025 Oxygen therapy [facility] Start: 01-10-2025 Providing care according to standard [facility] Start: 01-10-2025 Referral to occupational therapist [facility] Start: 01-10-2025 Referral to service [facility] Start: 01-10-2025 Admission procedure [facility] Start: 01-10-2025 Patient referral to dietitian [facility] Start: 01-08-2025 Lipid panel Lipid Panel [facility] Start: 01-07-2025 Emergency dept visit high severity&threat funcj [facility] Start: 01-07-2025 Iv infusion hydration initial 31 min-1 hour [facility] Start: 01-07-2025 [facility] Start: 01-06-2025 Diabetes Screening Diabetes Screening [facility] Start: 12-30-2024 End: 12-30-2025 CBC W Auto Differential panel - Blood CBC auto differential Lab STAT Nausea Expected: 12/30/2024 (Approximate), Expires: 12/30/2025 [facility] Work Phone: Comment on above: Expected: 12/30/2024 (Approximate), Expi res: 12/30/2025 Start: 12-30-2024 End: 12-30-2025 Comprehensive metabolic 1998 panel - Serum or Plasma Comprehensive metabolic panel Lab STAT Nausea Expected: 12/30/2024 (Approximate), Expires: 12/30/2025 [facility] Comment on above: Expected: 12/30/2024 (Approximate), Expi res: 12/30/2025 Start: 12-30-2024 End: 12-30-2025 Lipase [Enzymatic activity/volume] in Serum or Plasma Lipase Lab STAT Nausea Expected: 12/30/2024 (Approximate), Expires: 12/30/2025 [facility] Comment on above: Expected: 12/30/2024 (Approximate), Expi res: 12/30/2025 Start: 12-30-2024 End: 12-30-2024 Patient encounter procedure 12/30/2024 10:00 AM EST Office Visit [facility] [address] [place] [address] Jacob Jennings DO [address] [place] [phone] [facility] Start: 12-16-2024 End: 12-16-2024 Venous catheter care management [facility] Start: 12-16-2024 Patient discharge [facility] Start: 12-15-2024 [facility] Start: 12-15-2024 Incentive spirometry [facility] Start: 12-14-2024 Following clinical pathway protocol [facility] Start: 12-14-2024 Assessment of risk of venous thromboembolism [facility] Start: 12-14-2024 Care regimes management [facility] Start: 12-14-2024 Inhalation therapy procedure [facility] Start: 12-14-2024 Insertion of catheter into peripheral vein [facility] Start: 12-14-2024 Introduction of urinary catheter [facility] Start: 12-14-2024 Measuring intake and output [facility] Start: 12-14-2024 Notification of physician [facility] Start: 12-14-2024 Oxygen therapy [facility] Start: 12-14-2024 Providing care according to standard [facility] Start: 12-14-2024 Provision of activity privileges [facility] Start: 12-14-2024 Referral to service [facility] Start: 12-14-2024 End: 12-14-2024 [facility] Start: 12-14-2024 Admission procedure [facility] Start: 12-14-2024 Venous catheter care management [facility] Start: 12-14-2024 Patient referral to dietitian [facility] Start: 11-18-2024 End: 11-18-2024 Patient encounter procedure 11/18/2024 10:00 AM EST Office Visit [facility] [address] [place] [phone] Francois cAevedo MD [address] [place] [address] 6 month f/u, MRI done 11/11 [facility] Comment on above: 6 month f/u, MRI done 11/11 Start: 11-11-2024 End: 11-11-2024 Patient encounter procedure Radiology Comment on above: Metastatic cancer to brain (HCC) [C79.31 ]; 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 Start: 10-19-2024 End: 04-19-2025 Comprehensive metabolic 1998 panel - Serum or Plasma Comprehensive metabolic panel Lab Routine Essential hypertension Expected: 10/19/2024 (Approximate), Expires: 04/19/2025 [facility] Work Phone: Comment on above: Expected: 10/19/2024 (Approximate), Expi res: 04/19/2025 Start: 10-19-2024 End: 04-19-2025 Lipid 1996 panel - Serum or Plasma Lipid panel Lab Routine Coronary artery disease involving [place] coronary artery of [place] heart without angina pectoris Expected: 10/19/2024 (Approximate), Expires: 04/19/2025 [facility] Comment on above: Expected: 10/19/2024 (Approximate), Expi res: 04/19/2025 Start: 10-19-2024 End: 04-19-2025 PSA Total (Screening) PSA Total (Screening) Lab Routine Prostate cancer screening Expected: 10/19/2024 (Approximate), Expires: 04/19/2025 [facility] Comment on above: Expected: 10/19/2024 (Approximate), Expi res: 04/19/2025 Start: 07-10-2024 Covid-19 Vaccine ( season) Covid-19 Vaccine ( season) [facility] Start: 07-10-2024 COVID-19 Vaccine ( season) COVID-19 Vaccine ( season) [facility] Start: 07-10-2024 Influenza vaccination [facility] Start: 07-07-2024 End: 07-07-2024 Patient encounter procedure 07/07/2024 2:00 PM EDT Office Visit [facility] [address] [place] [address] Jacob Jennings DO [address] [place] [address] [place] [address] [facility] Start: 06-13-2024 Lipid screen Lipid screen [facility] Start: 05-20-2024 End: 05-20-2024 Patient encounter procedure 05/20/2024 10:15 AM EDT Office Visit [facility] [address] [facility] [place] [phone] Francois Acevedo MD [address] [facility] [place] [address] 3 month follow up MRI 05/17 [facility] Comment on above: 3 month follow up MRI 05/17 Start: 05-17-2024 End: 05-17-2024 Patient encounter procedure [facility] Comment on above: port access / MRI ER ENTRANCE - [facility] MRI BRAIN WWO IVCON Metastatic cancer to brain (HCC) [C79.31] *SCHEDULED W/ LALO IN OFFICE *PT NEED PORT ACCESS FOR IV, SEE Start: 04-19-2024 End: 04-19-2024 Patient encounter procedure 04/19/2024 1:30 PM EDT Office Visit [facility] [address] [place] [address] Jacob Jennings DO [address] [place] [address] [facility] Start: 03-09-2024 Patient discharge [facility] Start: 03-08-2024 [facility] Start: 03-08-2024 Following clinical pathway protocol [facility] Start: 03-08-2024 Application of intermittent pneumatic compression device [facility] Start: 03-08-2024 Care of equipment and devices [facility] Start: 03-08-2024 Catheterization of vein [facility] Start: 03-08-2024 Following clinical pathway protocol [facility] Start: 03-08-2024 Incentive spirometry [facility] Start: 03-08-2024 Introduction of urinary catheter [facility] Start: 03-08-2024 Measuring intake and output [facility] Start: 03-08-2024 Neurovascular assessment [facility] Start: 03-08-2024 Patient education [facility] Start: 03-08-2024 Procedure discontinued [facility] Start: 03-08-2024 Provision of activity privileges [facility] Start: 03-08-2024 Taking patient vital signs [facility] Start: 03-08-2024 [facility] Start: 03-08-2024 Admission procedure [facility] Start: 03-08-2024 Consultation [facility] Start: 03-08-2024 Referral to occupational therapist [facility] Start: 03-08-2024 Referral to service [facility] Start: 03-02-2024 [facility] Start: 02-22-2024 Colonoscopy COLONOSCOPY [facility] Start: 02-22-2024 COLORECTAL CANCER SCREENING COLORECTAL CANCER SCREENING [facility] Start: 02-22-2024 Screening for malignant neoplasm of colon [facility] Start: 01-13-2024 Venous catheter care management [facility] Start: 01-07-2024 End: 01-06-2025 Lipid 1996 panel - Serum or Plasma Lipid panel Lab Routine Hypercholesterolemia Expected: 01/07/2024 (Approximate), Expires: 01/06/2025 [facility] Work Phone: Comment on above: Expected: 01/07/2024 (Approximate), Expi res: 01/06/2025 Start: 01-07-2024 End: 01-07-2024 Patient encounter procedure 01/07/2024 2:00 PM EST Office Visit [facility] [address] [place] [address] Jacob Jennings DO [address] [place] [address] [facility] Start: 01-07-2024 End: 01-06-2025 PSA screening PSA Screening Lab Routine Prostate cancer screening Expected: 01/07/2024 (Approximate), Expires: 01/06/2025 [facility] Comment on above: Expected: 01/07/2024 (Approximate), Expi res: 01/06/2025 Start: 01-06-2024 Venous catheter care management [facility] Start: 11-09-2023 Advance Directive Discussion Advance Directive Discussion [facility] Start: 11-09-2023 Behavioral Health Screening Behavioral Health Screening [facility] Start: 10-18-2023 Venous catheter care management [facility] Start: 10-18-2023 [facility] Start: 10-07-2023 Venous catheter care management [facility] Start: 10-05-2023 Venous catheter care management [facility] Start: 09-02-2023 Venous catheter care management [facility] Start: 07-10-2023 Covid-19 Vaccine ( season) Covid-19 Vaccine ( season) [facility] Start: 07-10-2023 COVID-19 Vaccine ( season) COVID-19 Vaccine ( season) [facility] Start: 07-10-2023 Influenza vaccination [facility] Start: 07-08-2023 Patient referral [facility] Work Phone: Start: 07-01-2023 End: 07-01-2023 Patient encounter procedure [facility] Start: 07-01-2023 Venous catheter care management [facility] Start: 05-06-2023 Venous catheter care management [facility] Start: 05-06-2023 Patient discharge [facility] Start: 05-04-2023 End: 05-05-2023 [facility] Start: 05-04-2023 Oxygen therapy [facility] Start: 05-04-2023 [facility] Start: 05-03-2023 Referral to gastroenterology service [facility] Start: 05-02-2023 Following clinical pathway protocol [facility] Start: 05-02-2023 Ambulation without limitation [facility] Start: 05-02-2023 Assessment of risk of venous thromboembolism [facility] Start: 05-02-2023 Care regimes management [facility] Start: 05-02-2023 Catheterization of vein [facility] Start: 05-02-2023 Consultation [facility] Start: 05-02-2023 Inhalation therapy procedure [facility] Start: 05-02-2023 Insertion of catheter into peripheral vein [facility] Start: 05-02-2023 Physiotherapy of chest [facility] Start: 05-02-2023 Providing care according to standard [facility] Start: 05-02-2023 Referral to service [facility] Start: 05-02-2023 [facility] Start: 05-02-2023 Measurement of occult blood in stool specimen using immunoassay [facility] Start: 05-02-2023 Respiratory pathogens DNA and RNA panel - Respiratory specimen by DAVID with probe detection [facility] Start: 05-02-2023 Verification routine [facility] Start: 05-02-2023 Admission procedure [facility] Start: 05-02-2023 End: 05-02-2023 Blood culture [facility] Start: 05-02-2023 End: 05-02-2023 [facility] Start: 05-02-2023 Patient referral to dietitian [facility] Start: 04-27-2023 Patient referral [facility] Work Phone: Start: 04-04-2023 Screening for malignant neoplasm of colon [facility] Start: 01-21-2023 Venous catheter care management [facility] Start: 01-21-2023 Venous catheter care management [facility] Start: 01-06-2023 Creatinine measurement Creatinine Level [facility] Start: 01-06-2023 Diabetes: Estimated Glomerular Filtration Rate for [facility]ney Health Diabetes: Estimated Glomerular Filtration Rate for Kid[facility] Health [facility] Start: 01-06-2023 Lipid panel Lipid Panel [facility] Start: 01-06-2023 Potassium measurement Potassium Level [facility] Start: 01-06-2023 [facility] Start: 12-31-2022 End: 12-31-2023 Lipid 1996 panel - Serum or Plasma Lipid panel Lab Routine Hypercholesterolemia Expected: 12/31/2022 (Approximate), Expires: 12/31/2023 [facility] Work Phone: Comment on above: Expected: 12/31/2022 (Approximate), Expi res: 12/31/2023 Start: 12-31-2022 End: 12-31-2022 Patient encounter procedure 12/31/2022 Office Visit Family Medicine Jacob Jennings, DO [address] [place] [address] [facility] Start: 12-16-2022 Venous catheter care management [facility] Start: 11-21-2022 Patient discharge [facility] Start: 11-21-2022 Inhalation therapy procedure [facility] Start: 11-20-2022 Incentive spirometry [facility] Start: 11-20-2022 Physiotherapy of chest [facility] Start: 11-19-2022 Following clinical pathway protocol [facility] Start: 11-19-2022 Venous catheter care management [facility] Start: 11-19-2022 Assessment of risk of venous thromboembolism [facility] Start: 11-19-2022 Insertion of catheter into peripheral vein [facility] Start: 11-19-2022 Oxygen therapy [facility] Start: 11-19-2022 Providing care according to standard [facility] Start: 11-19-2022 Provision of activity privileges [facility] Start: 11-19-2022 Referral to occupational therapist [facility] Start: 11-19-2022 Referral to service [facility] Start: 11-19-2022 [facility] Start: 11-19-2022 Legionella pneumophila Ag [Presence] in Urine [facility] Work Phone: Start: 11-19-2022 Streptococcus pneumoniae antigen assay [facility] Work Phone: Start: 11-19-2022 Verification routine [facility] Work Phone: Start: 11-19-2022 Admission procedure [facility] Start: 11-09-2022 ADVANCE DIRECTIVE DISCUSSION ADVANCE DIRECTIVE DISCUSSION [facility] Start: 01-01-2023 DEPRESSION ASSESSMENT DEPRESSION ASSESSMENT [facility] Start: 10-15-2022 Patient referral [facility] Work Phone: Start: 08-21-2022 Diabetes: Urine Albumin-Creatinine Ratio for [facility] Diabetes: Urine Albumin-Creatinine Ratio for [facility] Start: 07-10-2022 Influenza vaccination Influenza Vaccine (#1) [facility] Start: 05-17-2022 Diabetes mellitus screening Diabetes Screening [facility] Start: 05-17-2022 Hemoglobin A1c measurement Diabetes: Hemoglobin A1C [facility] Start: 05-16-2022 Creatinine measurement Creatinine monitoring [facility] Work Phone: Start: 05-16-2022 Lipid panel Lipid screen [facility] Work Phone: Start: 05-16-2022 Potassium monitoring Potassium monitoring [facility] Work Phone: Start: 03-15-2022 Creatinine measurement Creatinine monitoring [facility] Work Phone: Start: 03-15-2022 Potassium monitoring Potassium monitoring [facility] Work Phone: Start: 02-14-2022 Screening for malignant neoplasm of lung Low dose CT lung screening [employer] Work Phone: Start: 01-28-2022 Screening for malignant neoplasm of lung Low dose CT lung screening [employer] Work Phone: Start: 01-27-2022 COVID-19 Vaccine (4 - Booster) COVID-19 Vaccine (4 - Booster) [facility] Start: 01-27-2022 COVID-19 VACCINE (4 - Moderna series) COVID-19 VACCINE (4 - Moderna series) [facility] Start: 01-06-2022 End: 01-06-2022 Patient encounter procedure 01/06/2022 Office Visit Family Medicine Jacob Jennings, DO [facility] [place], [place] [id number] [facility] Start: 12-17-2021 Venous catheter care management [facility] Start: 10-10-2021 Venous catheter care management [facility] Start: 08-14-2021 End: 08-14-2021 Patient encounter procedure 08/14/2021 Office Visit Neurology Jaspal Esthela IN [employer] [address] [place] [address] [phone] [facility] [place] Start: 07-10-2021 Influenza vaccination [facility] Work Phone: Start: 07-09-2021 Venous catheter care management [facility] Start: 07-08-2021 End: 07-08-2021 Office Visit 07/08/2021 Office Visit Family Medicine Jacob Jennings, DO [address] [place] [address] [phone] [facility] Start: 07-02-2021 Creatinine measurement Creatinine monitoring [place], [place] Start: 07-02-2021 Lipid panel Lipid screen [place], [place] Start: 07-02-2021 Potassium monitoring Potassium monitoring [place] Start: 06-24-2021 End: 06-24-2021 Patient encounter procedure 06/24/2021 Office Visit Neurology Em Eckert MD [address] [place] [address] [phone] [facility] [place] Start: 05-24-2021 End: 05-24-2021 Patient encounter procedure 05/24/2021 Office Visit Family [facility] Jacob Jennings, DO [address] [place], [place] [id number] [facility] Start: 05-21-2021 Annual Wellness Visit (AWV) Annual Wellness Visit (AWV) [facility] Work Phone: Start: 05-07-2021 Venous catheter care management [facility] Start: 03-27-2021 End: 03-27-2021 Patient encounter procedure 03/27/2021 Office Visit Cardiothoracic Surgery Megha Don IN [employer] [address] [place] [address] [phone] [facility] Start: 03-20-2021 End: 03-20-2021 Admission to same day surgery center 03/20/2021 Virtual Visit Cardiothoracic Surgery Anaid Zee MD [address] [place], [place] [id number] [facility] Start: 03-13-2021 COVID-19 Vaccine (3 - Moderna risk 3-dose series) COVID-19 Vaccine (3 - Moderna risk 3-dose series) [facility] Work Phone: Start: 03-01-2021 End: 03-01-2021 Appointment 03/01/2021 Appointment Pulmonary Function Testing Jose Miguel Foster MD [address] [place], [place] [id number] [facility] Pulm Function Test Start: 02-12-2021 COVID-19 Vaccine (2 - Moderna 2-dose series) COVID-19 Vaccine (2 - Moderna 2-dose series) [facility] Work Phone: Start: 01-28-2021 Hospital Encounter 01/28/2021 Hospital Encounter Radiology Jacob Jennings, DO [address] [place], [place] [phone] [facility] [address] Start: 12-31-2020 End: 12-31-2020 Office Visit 12/31/2020 Office Visit Family Medicine Jacob Jennings, DO [address] [place], [place] [phone] [facility] Start: 07-10-2020 Influenza vaccination Flu vaccine (#1) [place], [place] Start: 06-13-2020 Creatinine monitoring Creatinine monitoring [place], [place] Start: 06-13-2020 Potassium monitoring Potassium monitoring [place] Start: 12-13-2019 Pneumococcal 65+ years Vaccine (2 of 2 - PPSV23) Pneumococcal 65+ years Vaccine (2 of 2 - PPSV23) [place] Start: 07-10-2019 Influenza vaccination Flu vaccine (#1) [place] Start: 2018 Pneumococcal Vaccine: 65+ (1 - PCV) Pneumococcal Vaccine: 65+ (1 - PCV) [facility] Start: 2018 PNEUMOCOCCAL: 65+ (1 - PCV) PNEUMOCOCCAL: 65+ (1 - PCV) [facility] Start: 09-09-2018 Medicare Annual Wellness Visit Medicare Annual Wellness Visit [facility] Start: 2013 RSV Immunization aged 60 or older (1 - 1-dose 60+ series) RSV Immunization aged 60 or older (1 - 1-dose 60+ series) [facility] Start: 2013 RSV Immunization for Adults (1 - Risk 60-74 years 1-dose series) RSV Immunization for Adults (1 - Risk 60-74 years 1-dose series) [facility] Start: 2013 RSV Vaccine (1 - 1-dose 60+ series) RSV Vaccine (1 - 1-dose 60+ series) [facility] Start: 01-04-2009 Lipid 1996 panel - Serum or Plasma Lipid Screening [facility] Start: 01-04-2009 LIPID SCREEN LIPID SCREEN [facility] Start: [address] lung screening Low dose CT lung screening [place], [place] Start: 2008 Screening for malignant neoplasm of lung Low dose CT lung screening [place] Start: 01-06-2007 DIABETES SCREEN DIABETES SCREEN [facility] Start: 01-06-2007 Diabetes Screening Diabetes Screening [facility] Start: 2003 Shingles Vaccine (1 of 2) Shingles Vaccine (1 of 2) [place] Start: 2003 SHINGRIX VACCINE (1 of 2) SHINGRIX VACCINE (1 of 2) [facility] Start: 2003 Zoster Vaccines (1 of 2) Zoster Vaccines (1 of 2) [facility] Start: 1998 COLOGUARD (FIT-DNA) COLOGUARD (FIT-DNA) [facility] Start: [address] COLONOGRAPHY [facility] Start: 1998 FECAL OCCULT BLOOD FECAL OCCULT BLOOD [facility] Start: 1998 Screening for malignant neoplasm of colon [facility] Start: 1998 SIGMOIDOSCOPY SIGMOIDOSCOPY [facility] Start: 1993 Diabetes screen Diabetes screen [facility] Work Phone: Start: 1972 DTaP/Tdap/Td vaccine (1 - Tdap) DTaP/Tdap/Td vaccine (1 - Tdap) [place] Start: 1972 DTaP/Tdap/Td Vaccines (1 - Tdap) DTaP/Tdap/Td Vaccines (1 - Tdap) [facility] Start: 1972 Urine microalbumin profile [facility] Start: 1971 Anxiety Screening Anxiety Screening [facility] Start: 1971 Depression Screening Depression Screening [facility] Start: 1971 Diabetes: Urine Albumin-Creatinine Ratio for Kidney Health Diabetes: Urine Albumin-Creatinine Ratio for [facility] Start: 1971 Hepatitis C screening Hepatitis C Screening [facility] Start: 1971 HEPATITIS C SCREENING HEPATITIS C SCREENING [facility] Start: 1968 HIV screen HIV screen [place], [place] Start: 1965 Depression Screening Depression Screening [facility] Start: 1963 Diabetic foot examination Diabetes: Foot Exam [facility] Start: 1963 Glaucoma screening Diabetes: Retinopathy Screening [facility] Start: 1963 Preventive dental service Diabetes: Dental Exam [facility] Start: 04-02-1954 Examination of skin Derm Melanoma Skin Check [facility] Start: 1953 AAA screen AAA screen [place], [place] Start: 1953 Abdominal aortic aneurysm screening [facility] Start: 1953 ABDOMINAL AORTIC ANEURYSM SCREENING ABDOMINAL AORTIC ANEURYSM SCREENING [facility] Start: 1953 Echocardiography Echocardiogram [facility] Start: 1953 Hepatitis B Vaccines (1 of 3 - 3-dose series) Hepatitis B Vaccines (1 of 3 - 3-dose series) [facility] Start: 1953 Hepatitis C screen Hepatitis C screen [place], [place] Start: 1953 Hepatitis C screening Hepatitis C screen [place] Start: 1953 Medicare Annual Wellness (AWV) Medicare Annual Wellness (AWV) [facility] Start: 1953 Screening for malignant neoplasm of colon [facility] Alanine aminotransfe rase [Enzymatic activity/volume] in Serum or Plasma [facility] Albumin [Mass/volume ] in Serum or Plasma [facility] Alkaline phosphatase [Enzymatic activity/volume] in Serum or Plasma [facility] Anion gap in Serum o r Plasma [facility] Bacteria identified in Blood by Culture Blood Culture [facility] Bacteria identified in Blood by Culture [employer] Work Phone: Basic metabolic 2008 panel with ionized calcium - Serum or Plasma [facility] Bilirubin, total measurement [facility] BUN/Creatinine ratio [facility] Calcium [Mass/volume ] in Serum or Plasma [facility] Carbon dioxide, tota l [Moles/volume] in Central venous blood [facility] CBC W Auto Different ial panel - Blood [facility] CBC W Auto Different ial panel - Blood [facility] Chest physiotherapy Chest physio therapy Respiratory Care Routine Daily until discontinued starting 03/12/2021 [employer] Work Phone: Comment on above: Daily until discontinued starting 2020 Comprehensive metabo lic 2000 panel - Serum or Plasma [facility] Cortisol [Mass/volum e] in Serum or Plasma [facility] Cortisol [Mass/volum e] in Serum or Plasma [facility] Creatinine [Mass/vol ume] in Serum or Plasma [facility] CT Abdomen and Pelvi s W contrast IV [facility] CT Abdomen and Pelvi s W contrast IV [facility] CT Abdomen and Pelvi s W contrast IV [facility] CT Abdomen and Pelvi s W contrast IV [facility] EKG 12 lead if not d one in the ED EKG 12 lead if not done in the ED ECG Routine 05/17/2021 6:26 AM EDT [employer] Work Phone: Erythrocyte mean corpuscular volume determination [facility] Ferritin [Mass/volum e] in Serum or Plasma [facility] Ferritin [Mass/volum e] in Serum or Plasma [facility] Ferritin [Mass/volum e] in Serum or Plasma [facility] Ferritin [Mass/volum e] in Serum or Plasma [facility] Ferritin [Mass/volum e] in Serum or Plasma [facility] Glucose [Mass/volume ] in Serum or Plasma [facility] Hematocrit [Volume Fraction] of Blood [facility] Hemoglobin [Mass/vol ume] in Blood [facility] Hemoglobin A1c/Hemoglobin.total in Blood [facility] Iron [Mass/mass] in Unspecified specimen [facility] Iron and Iron bindin g capacity panel - Serum or Plasma [facility] Iron and Iron bindin g capacity panel - Serum or Plasma [facility] Iron and Iron bindin g capacity panel - Serum or Plasma [facility] Iron and Iron bindin g capacity panel - Serum or Plasma [facility] Iron and Iron bindin g capacity panel - Serum or Plasma [facility] Iron saturation [Mas s Fraction] in Serum or Plasma [facility] Leukocytes [#/volume ] in Blood [facility] End: 06-20-2021 Levetiracetam Level Levetiracetam Level Lab Routine Seizure ([facility]) 1 Occurrences starting 06/20/2021 until 06/20/2021 [facility] Work Phone: Comment on above: 1 Occurrences starting 06/20/2021 until 06/20/2021 Levetiracetam Level Levetiraceta m Level Lab Routine Seizure ([facility]) 06/20/2021 8:19 AM EDT [facility] Work Phone: Magnesium [Mass/volu me] in Serum or Plasma [facility] Magnesium [Mass/volu me] in Serum or Plasma [facility] Magnesium measurement [facility] Magnesium measurement [facility] Magnesium measurement [facility] Magnesium measurement [facility] Magnesium measurement [facility] Mean corpuscular hemoglobin concentration determination [facility] Mean corpuscular hemoglobin determination [facility] Measurement of renal function [facility] MR Brain WO and W contrast IV [facility] End: 03-20-2025 MR Brain WO and W contrast IV MRI BRAIN WO/W IVCON Radiology Routine Metastatic cancer to brain (HCC) 1 Occurrences starting 02/19/2024 until 03/20/2025 [facility] Work Phone: Comment on above: 1 Occurrences starting 02/19/2024 until 03/20/2025 End: 06-19-2025 MR Brain WO and W contrast IV MRI BRAIN WO/W IVCON Radiology Routine Metastatic cancer to brain (HCC) Secondary malignant neoplasm of brain (HCC) 1 Occurrences starting 05/20/2024 until 06/19/2025 [facility] Work Phone: Comment on above: 1 Occurrences starting 05/20/2024 until 06/19/2025 End: 12-18-2025 MR Brain WO and W contrast IV MRI BRAIN WO/W IVCON Radiology Routine Secondary malignant neoplasm of brain (HCC) 1 Occurrences starting 11/18/2024 until 12/18/2025 [facility] Work Phone: Comment on above: 1 Occurrences starting 11/18/2024 until 12/18/2025 End: 06-22-2026 MR Brain WO and W contrast IV MRI BRAIN WO/W IVCON Radiology Routine Secondary malignant neoplasm of brain (HCC) 1 Occurrences starting 05/23/2025 until 06/22/2026 [facility] Work Phone: Comment on above: 1 Occurrences starting 05/23/2025 until 06/22/2026 End: 07-08-2024 Mri brain brain stem w/o w/contrast material MRI BRAIN WO/W IVCON Radiology Routine 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 1 Occurrences starting 06/09/2023 until 07/08/2024 [facility] Work Phone: Comment on above: 1 Occurrences starting 06/09/2023 until 07/08/2024 End: 09-05-2024 Mri brain brain stem w/o w/contrast material MRI BRAIN WO/W IVCON Radiology Routine Metastatic cancer to brain (HCC) 1 Occurrences starting 08/07/2023 until 09/05/2024 [facility] Work Phone: Comment on above: 1 Occurrences starting 08/07/2023 until 09/05/2024 Mri brain brain stem w/o w/contrast material MRI BRAIN WO/W IVCON Radiology Routine Metastatic cancer to brain (HCC) 10/19/2023 7:32 PM EST [facility] Work Phone: End: 11-18-2024 Mri brain brain stem w/o w/contrast material MRI BRAIN WO/W IVCON Radiology Routine Metastatic cancer to brain (HCC) 1 Occurrences starting 10/20/2023 until 11/18/2024 [facility] Work Phone: Comment on above: 1 Occurrences starting 10/20/2023 until 11/18/2024 Nebulizer therapy [facility] Treatment Respiratory Care Routine Every 6hr As Needed until discontinued starting 03/12/2021 [facility] Work Phone: Comment on above: Every 6hr As Needed until discontinued s tarting 03/12/[address] [facility] Neutrophil percent differential count [facility] Oxygen therapy [[facility] Data Set] [facility] Work Phone: Comment on above: Daily until discontinued starting 2020 Daily until disconti nued starting 05/15/2021 Patient Education [facility] Work Phone: Patient referral [facility] Work Phone: Phase I & II - meter ed glucose Phase I & II - metered glucose Point of Care Testing Routine As Needed until discontinued starting 03/12/2021 [facility] Work Phone: Comment on above: As Needed until discontinued starting Platelets [#/volume] in Blood [facility] Potassium measurement [facility] PSA screening PSA Screening [place] [facility] Routine Prostate cancer screening 01/09/2024 10:37 AM EST [facility] Red blood cell count [facility] Red cell distributio n width determination [facility] Respiratory microbia l culture Respiratory Culture [facility] Work Phone: Serum chloride measurement [facility] Serum inorganic phosphate measurement [facility] Serum inorganic phosphate measurement [facility] Serum inorganic phosphate measurement [facility] Sodium measurement [facility] Spirometry panel [facility] Work Phone: Comment on above: Every 2hr while awake until discontinued starting 03/12/2021 Q1H PRN until discon tinued starting 03/12/2021 End: 03-12-2021 Surgical Pathology Surgical Pathology Lab Routine Once for 1 Occurrences starting 03/12/2021 until 03/12/2021 [facility] Work Phone: Comment on above: Once for 1 Occurrences starting 03/12/20 until 03/12/2021 Surgical Pathology Surgical Path ology Lab Routine 03/12/2021 4:20 PM EDT [facility] Work Phone: T4 free measurement [facility] T4 free measurement [facility] T4 free measurement [facility] T4 free measurement [facility] T4 free measurement [facility] T4 free measurement [facility] T4 free measurement [facility] Thyroid stimulating hormone measurement [facility] Thyroid stimulating hormone measurement [facility] Thyroid stimulating hormone measurement [facility] Thyroid stimulating hormone measurement [facility] Thyroid stimulating hormone measurement [facility] Thyroid stimulating hormone measurement [facility] Thyroid stimulating hormone measurement [facility] Thyroid stimulating hormone measurement [facility] Thyroid stimulating hormone measurement [facility] Total protein measurement [facility] Triiodothyronine, fr ee measurement [facility] Urea nitrogen [Mass/volume] in Serum or Plasma [facility] US Heart [facility] XR CHEST PORTABLE XR CHEST SLOANE BLE Imaging Routine Daily until discontinued starting 03/13/2021, 3 completed [facility] Work Phone: Comment on above: Daily until discontinued starting 2020, 3 completed End: 02-20-2021 XR Unlisted Fluoroscopic Procedur XR Unlisted Fluoroscopic Procedur Imaging Routine Once for 1 Occurrences starting 02/20/2021 until 02/20/2021 [facility] Work Phone: Comment on above: Once for 1 Occurrences starting 02/21/20 until 02/20/2021 XR Unlisted Fluorosc opic Procedur XR Unlisted Fluoroscopic Procedur Imaging Routine 02/20/2021 11:30 AM EDT [facility] Work Phone: [facility] Immunizations Immunization Date Immunization Notes Care Provider [facility] 08-19-2025 tetanus toxoid, redu carlos diphtheria toxoid, and acellular pertussis vaccine, adsorbed Tono Birch MD Work Phone: [facility] 04-18-2025 Pneumococcal Conjuga te PCV20, Pf (Prevnar 20) Jacob Jennings DO Work Phone: [facility] 08-17-2024 Influenza, adjuvanat ed, TV, PF, 65+ (FLUAD) Dr. Jacob Jennings DO Work Phone: [facility] 08-17-2024 Seasonal trivalent influenza vaccine, adjuvanted, preservative free Jacob Jennings DO Work Phone: [facility] 08-17-2024 Dr. Jacob simms DO Work Phone: [facility] 08-17-2024 influenza virus vaccine, unspecified formulation Lab/Port Wstr Work Phone: [facility] 09-16-2023 influenza, injectabl e, quadrivalent, preservative free Dr. Jacob Jennings Work Phone: [facility] 09-16-2023 influenza virus vaccine, unspecified formulation [facility] 08-09-2022 Influenza, high dose seasonal Dr. Jacob Jennings DO Work Phone: [facility] 08-09-2022 influenza, high dose seasonal, preservative-free Dr. Jacob Jennings Work Phone: [facility] 08-09-2022 Dr. Jacob simms DO Work Phone: [facility] 08-09-2022 influenza virus vaccine, unspecified formulation Pineda Fields MD Work Phone: [facility] 12-02-2021 Covid (Moderna) Dr. Jacob stallworth Work Phone: [facility] 12-02-2021 SARS-CoV-2, Unspecified Merlene vo RN [facility] 08-20-2021 influenza virus vaccine, unspecified formulation Merlene Andino RN [facility] 08-20-2021 influenza, injectabl e, quadrivalent, contains preservative Jacob Jennings DO Work Phone: [facility] 08-20-2021 influenza, injectabl e, quadrivalent, preservative free Dr. Jacob Jennings Work Phone: [facility] 08-20-2021 influenza, seasonal, injectable Dr. 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 Jacob Jennings Work Phone: [facility] 08-22-2014 influenza, seasonal, injectable Dr. 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 Jacob Jennings Work Phone: [facility] Payers Date Payer Category Payer Self-pay [id number] 2021 Unknown [id number] 2021 Medicare supplementa l policy (as second payer) [id number] 2021 Private Health Insurance [id number] .[id number]. [id number] 2021 Private Health Insurance CLI [id number] 1.2.840.492610.1.13.239. 2.7.3.803005.315 2021 Private Health Insurance [id number] 2019 Unknown [employer] M [employer] [address] [id number] 2019-Present [phone] [address] [place] [address] [id number] 1.2.840.818285.1.13.239. 2.7.3.113170.315 2018 Medicare [id number]. 1.13.680. 2.7.3.422359.315 2018 Medicare [id number] 1.2.840.850528.1.13.239. 2.7.3.322432.315 2017 Private Health Insurance [facility] PLU xxxxxxxxx 2017-Present [phone] [address] [place] [address] xxxxxxxxx 1.2.840.258955.1.13.239. 2.7.3.240675.315 1955 Unknown [id number] 2.16.840.1.449372.3.579. 2.627 Private Health Insurance [id number] Unknown [id number] 2.16.840.1.859432.3.579. 2.462 Unknown [id number] 2.16.840.1.157120.3.579. 2.462 Unknown [id number] 2.16.840.1.671553.3.579. 2.462 Unknown [id number] 2.16.840.1.792452.3.579. 2.462 Unknown [id number] 2.16.840.1.225138.3.579. 2.462 Unknown [id number] 2.16.840.1.259536.3.579. 2.462 Unknown [id number] 2.16.840.1.992061.3.579. 2.462 Unknown [id number] 2.16.840.1.444599.3.579. 2.462 Unknown [id number] 2.16840.1.045787.3.579. 2.462 Unknown [id number] 2.16840.1.809594.3.579. 2.462 Unknown [id number] 2.16840.1.883368.3.579. 2.462 Unknown [id number] 2.16840.1.759430.3.579. 2.462 Unknown [id number] 2.16.840.1.017947.3.579. 2.462 Unknown [id number] 2.16840.1.422824.3.579. 2.462 Unknown [id number] 2.16.840.1.147161.3.579. 2.462 Unknown [id number] 2.16.840.1.433080.3.579. 2.462 Unknown [id number] 2.16.840.1.250831.3.579. 2.462 Unknown [id number] 2.16.840.1.611974.3.579. 2.462 Unknown [id number] 2.16.840.1.481196.3.579. 2.462 Unknown [id number] 2.16.840.1.955124.3.579. 2.462 Unknown [id number] 2.16.840.1.706922.3.579. 2.462 Unknown [id number] 2.16.840.1.039204.3.579. 2.462 Unknown [id number] 2.16.840.1.002443.3.579. 2.462 Unknown [id number] 2.16.840.1.141689.3.579. 2.462 Unknown [id number] 2.840.1.048284.3.579. 2.462 Unknown [id number] 2.840.1.267647.3.579. 2.462 Unknown [id number] 2.840.1.390127.3.579. 2.462 Unknown [id number] 2.840.1.077883.3.579. 2.462 Unknown [id number] 2.840.1.246069.3.579. 2.462 Unknown [id number] 2.840.1.597493.3.579. 2.462 Unknown [id number] 2.840.1.866732.3.579. 2.462 Unknown [id number] 2.840.1.431382.3.579. 2.462 Unknown [id number] 2.840.1.770438.3.579. 2.462 Unknown [id number] 2.16840.1.513863.3.579. 2.462 Unknown [id number] 2.840.1.462680.3.579. 2.462 Unknown [id number] 2.16.840.1.466962.3.579. 2.462 Unknown [id number] 2.16840.1.413078.3.579. 2.462 Unknown [id number] 2.840.1.710866.3.579. 2.462 Unknown [id number] 2.16.840.1.859025.3.579. 2.462 Unknown [id number] 2.16.840.1.511542.3.579. 2.462 Unknown [id number] 2.16.840.1.102569.3.579. 2.462 Unknown [id number] 2.16.840.1.150618.3.579. 2.462 Unknown [id number] 2.16.840.1.478690.3.579. 2.462 Unknown [id number] 2.16.840.1.946832.3.579. 2.462 Unknown [id number] 2.16.840.1.367665.3.579. 2.462 Unknown [id number] 2.16.840.1.726848.3.579. 2.462 Unknown [id number] 2.16.840.1.075789.3.579. 2.462 Unknown [id number] 2.16.840.1.206148.3.579. 2.462 Unknown [id number] 2.16.840.1.443540.3.579. 2.462 Unknown [id number] 2.16.840.1.785387.3.579. 2.462 Unknown [id number] 2.16.840.1.182317.3.579. 2.462 Unknown [id number] 2.16.840.1.488704.3.579. 2.462 Unknown [id number] 2.16.840.1.892233.3.579. 2.462 Unknown [id number] 2.16.840.1.265296.3.579. 2.462 Unknown [id number] 2.16.840.1.308972.3.579. 2.462 Unknown [id number] 2.16.840.1.940171.3.579. 2.462 Unknown [id number] 2.16.840.1.229743.3.579. 2.462 Unknown [id number] 2.16.840.1.247249.3.579. 2.462 Unknown [id number] 2.16.840.1.074871.3.579. 2.462 Unknown [id number] 2.16.840.1.801335.3.579. 2.462 Unknown [id number] 2.16840.1.669449.3.579. 2.462 Unknown [id number] 2.16.840.1.122603.3.579. 2.462 Unknown [id number] 2.16840.1.390700.3.579. 2.462 Unknown [id number] 2.840.1.911450.3.579. 2.462 Social History Date Type Detail Facility Start: 02-01-1981 End: 03-12-2021 Tobacco smoking status NHIS Current every day [place] Start: 02-01-1981 End: 03-12-2021 History of tobacco use Cigarette [place] Start: 07-08-2020 End: 09-07-2025 Cigarettes smoked current (pack per day) - Reported [place] Start: 07-08-2020 End: 09-07-2025 Tobacco use and exposure Never used [place] Start: 07-08-2020 End: 08-19-2025 Alcohol intake Current drinker of alcohol (finding) [place] Start: 06-13-2019 End: 05-24-2021 History SDOH Alcohol Frequency 5 [place] Start: 06-13-2019 History SDOH Alcohol Std Drinks 2 [place] Start: 06-13-2019 End: 05-24-2021 History SDOH Alcohol Binge 1 [place] Start: 06-13-2019 History SDOH Social Connections Phone 3 [place] Start: 06-13-2019 History SDOH Physical Activity DPW 0 [place] Start: 1955 [facility] Start: 11-07-2022 End: 07-07-2023 Exposure to SARS-CoV-2 (event) Not sure [facility] Work Phone: Start: 06-13-2019 End: 09-07-2025 Alcohol intake Yes [facility] Start: 02-20-2021 Alcohol Comment couple beers a day [facility] Work [facility]: Start: 03-12-2021 End: 09-07-2025 Alcohol intake Ex-drinker (finding) [employer] Work Phone: Start: 05-16-2021 End: 09-07-2025 Tobacco smoking status NHIS Former smoker [facility] Start: 02-01-1981 End: 03-12-2021 History of tobacco use Current smoker [facility] Start: 02-21-2022 End: 03-08-2024 Tobacco smoking status [facility] Unknown if ever smoked [facility] Start: 08-19-2018 Occasional [facility] Start: 08-19-2018 None [facility] Start: 08-19-2018 Spouse/ Significant Other [facility] Start: 08-19-2018 Cigarettes [facility] Start: 1955 Sex Assigned At Male [facility] Sex Assigned At Sex [facility] National Score (1-10 0), lower number is lower risk 63 [facility] Start: 06-09-2022 Sex Male (finding) [facility] How often to you hav e a drink containing alcohol? Never [facility] How often do you nee d to have someone help you when you read instructions, pamphlets, or other written material from your doctor or pharmacy [SILS] Rarely [facility] Has the [employer], [employer], [employer], or water [employer] threatened to shut off services in your home in past 12Mo No [facility] Are you now , , , , never or living with a partner? [facility] Do you feel stress - tense, restless, nervous, or anxious, or unable to sleep at night because your mind is troubled all the time - these days [OSQ] Not at all [facility] (I/We) worried wheth er (my/our) food would run out before (I/we) got money to buy more. Never true [facility] Medical Equipment Procedure Code Equipment Code Equipment Origin al Text Equipment Identifier Dates Insertion, vascular access port PORT,6FR POWER PORT FDA Start: 05-03-2021 Insertion, vascular access port PORT,6FR POWER PORT FDA Start: 05-03-2021 Insertion, vascular access port PORT,6FR POWER PORT FDA Start: 05-03-2021 Insertion, vascular access port PORT,6FR POWER PORT FDA Start: 05-03-2021 Insertion, vascular access port PORT,6FR POWER PORT FDA Start: 05-03-2021 Insertion, vascular access port PORT,6FR POWER PORT FDA Start: 05-03-2021 Insertion, vascular access port PORT,6FR POWER PORT FDA Start: 05-03-2021 Insertion, vascular access port PORT,6FR POWER PORT FDA Start: 05-03-2021 Insertion, vascular access port PORT,6FR POWER PORT FDA Start: 05-03-2021 Insertion, vascular access port PORT,6FR POWER PORT FDA Start: 05-03-2021 Insertion, vascular access port PORT,6FR POWER PORT FDA Start: 05-03-2021 Insertion, vascular access port PORT,6FR POWER PORT FDA Start: 05-03-2021 Insertion, vascular access port FDA Start: 05-03-2021 Insertion, vascular access port PORT,6FR POWER PORT FDA Start: 05-03-2021 Insertion, vascular access port PORT,6FR POWER PORT FDA Start: 05-03-2021 Insertion, vascular access port PORT,6FR POWER PORT FDA Start: 05-03-2021 Insertion, vascular access port PORT,6FR POWER PORT FDA Start: 05-03-2021 Insertion, vascular access port PORT,6FR POWER PORT FDA Start: 05-03-2021 Insertion, vascular access port PORT,6FR POWER PORT FDA Start: 05-03-2021 Insertion, vascular access port PORT,6FR POWER PORT FDA Start: 05-03-2021 Insertion, vascular access port PORT,6FR POWER PORT FDA Start: 05-03-2021 Insertion, vascular access port FDA Start: 05-03-2021 Insertion, vascular access port FDA Start: 05-03-2021 Insertion, vascular access port FDA Start: 05-03-2021 Insertion, vascular access port FDA Start: 05-03-2021 Insertion, vascular access port FDA Start: 05-03-2021 Insertion, vascular access port FDA Start: 05-03-2021 Insertion, vascular access port PORT,6FR POWER PORT FDA Start: 05-03-2021 Insertion, vascular access port PORT,6FR POWER PORT FDA Start: 05-03-2021 Insertion, vascular access port FDA Start: 05-03-2021 Insertion, vascular access port PORT,6FR POWER PORT FDA Start: 05-03-2021 Insertion, vascular access port FDA Start: 05-03-2021 Insertion, vascular access port FDA Start: 05-03-2021 Insertion, vascular access port PORT,6FR POWER PORT FDA Start: 05-03-2021 Insertion, vascular access port PORT,6FR POWER PORT FDA Start: 05-03-2021 Insertion, vascular access port PORT,6FR POWER PORT FDA Start: 05-03-2021 Insertion, vascular access port FDA Start: 05-03-2021 Insertion, vascular access port FDA Start: 05-03-2021 EGD, with monitored anesthesia care [id number] FDA Start: 05-04-2023 Discectomy, spine, cervical, anterior approach, with fusion PUTTY,BONE .5CC DBX FDA Start: 03-08-2024 Discectomy, spine, cervical, anterior approach, with fusion ref- [id number] 16mm fixed angle screw FDA Start: 03-08-2024 Discectomy, spine, cervical, anterior approach, with fusion ref- [id number] 15mm rescue screw FDA Start: 03-08-2024 Discectomy, spine, cervical, anterior approach, with fusion ref- [id number] anatomic cervical allograft spacer FDA Start: 03-08-2024 Discectomy, spine, cervical, anterior approach, with fusion ref- [id number] anatomic cervical allograft spacer FDA Start: 03-08-2024 Discectomy, spine, cervical, anterior approach, with fusion ref- [id number] 42.5mm plate FDA Start: 03-08-2024 Discectomy, spine, cervical, anterior approach, with fusion SEALANT,FLOSEAL HEMOSTATIC 5ML FDA Start: 03-08-2024 Discectomy, spine, cervical, anterior approach, with fusion SUTURE,LIGA CLIP MED [id number] FDA Start: 03-08-2024 Discectomy, spine, cervical, anterior approach, with fusion SUTURE,LIGA CLIP MED [id number] FDA Start: 03-08-2024 Discectomy, spine, cervical, anterior approach, with fusion ref- [id number] 14mm fixed angle screw FDA Start: 03-08-2024 Discectomy, spine, cervical, anterior approach, with fusion ref- [id number] 15mm fixed angle screw FDA Start: 03-08-2024 Discectomy, spine, cervical, anterior approach, with fusion ref- [id number] 16mm fixed angle screw FDA Start: 03-08-2024 Discectomy, spine, cervical, anterior approach, with fusion ref- [id number] 16mm fixed angle screw FDA Start: 03-08-2024 Discectomy, spine, cervical, anterior approach, with fusion ref- [id number] 16mm fixed angle screw FDA Start: 03-08-2024 Discectomy, spine, cervical, anterior approach, with fusion FDA Start: 03-08-2024 Discectomy, spine, cervical, anterior approach, with fusion FDA Start: 03-08-2024 Discectomy, spine, cervical, anterior approach, with fusion FDA Start: 03-08-2024 Discectomy, spine, cervical, anterior approach, with fusion FDA Start: 03-08-2024 Discectomy, spine, cervical, anterior approach, with fusion FDA Start: 03-08-2024 Discectomy, spine, cervical, anterior approach, with fusion FDA Start: 03-08-2024 Discectomy, spine, cervical, anterior approach, with fusion FDA Start: 03-08-2024 Discectomy, spine, cervical, anterior approach, with fusion FDA Start: 03-08-2024 Discectomy, spine, cervical, anterior approach, with fusion FDA Start: 03-08-2024 Discectomy, spine, cervical, anterior approach, with fusion FDA Start: 03-08-2024 Discectomy, spine, cervical, anterior approach, with fusion FDA Start: 03-08-2024 Discectomy, spine, cervical, anterior approach, with fusion FDA Start: 03-08-2024 Discectomy, spine, cervical, anterior approach, with fusion FDA Start: 03-08-2024 Discectomy, spine, cervical, anterior approach, with fusion FDA Start: 03-08-2024 Discectomy, spine, cervical, anterior approach, with fusion FDA Start: 03-08-2024 Discectomy, spine, cervical, anterior approach, with fusion FDA Start: 03-08-2024 Discectomy, spine, cervical, anterior approach, with fusion FDA Start: 03-08-2024 Discectomy, spine, cervical, anterior approach, with fusion FDA Start: 03-08-2024 Discectomy, spine, cervical, anterior approach, with fusion FDA Start: 03-08-2024 Discectomy, spine, cervical, anterior approach, with fusion FDA Start: 03-08-2024 Discectomy, spine, cervical, anterior approach, with fusion FDA Start: 03-08-2024 Discectomy, spine, cervical, anterior approach, with fusion FDA Start: 03-08-2024 Discectomy, spine, cervical, anterior approach, with fusion FDA Start: 03-08-2024 Discectomy, spine, cervical, anterior approach, with fusion FDA Start: 03-08-2024 Discectomy, spine, cervical, anterior approach, with fusion FDA Start: 03-08-2024 Discectomy, spine, cervical, anterior approach, with fusion FDA Start: 03-08-2024 Discectomy, spine, cervical, anterior approach, with fusion FDA Start: 03-08-2024 Discectomy, spine, cervical, anterior approach, with fusion FDA Start: 03-08-2024 Discectomy, spine, cervical, anterior approach, with fusion FDA Start: 03-08-2024 Discectomy, spine, cervical, anterior approach, with fusion FDA Start: 03-08-2024 Discectomy, spine, cervical, anterior approach, with fusion FDA Start: 03-08-2024 Discectomy, spine, cervical, anterior approach, with fusion FDA Start: 03-08-2024 Discectomy, spine, cervical, anterior approach, with fusion FDA Start: 03-08-2024 Discectomy, spine, cervical, anterior approach, with fusion FDA Start: 03-08-2024 Discectomy, spine, cervical, anterior approach, with fusion FDA Start: 03-08-2024 Discectomy, spine, cervical, anterior approach, with fusion FDA Start: 03-08-2024 Discectomy, spine, cervical, anterior approach, with fusion FDA Start: 03-08-2024 Discectomy, spine, cervical, anterior approach, with fusion FDA Start: 03-08-2024 Discectomy, spine, cervical, anterior approach, with fusion FDA Start: 03-08-2024 Discectomy, spine, cervical, anterior approach, with fusion FDA Start: 03-08-2024 Discectomy, spine, cervical, anterior approach, with fusion FDA Start: 03-08-2024 Discectomy, spine, cervical, anterior approach, with fusion FDA Start: 03-08-2024 Discectomy, spine, cervical, anterior approach, with fusion FDA Start: 03-08-2024 Discectomy, spine, cervical, anterior approach, with fusion FDA Start: 03-08-2024 Discectomy, spine, cervical, anterior approach, with fusion FDA Start: 03-08-2024 Discectomy, spine, cervical, anterior approach, with fusion FDA Start: 03-08-2024 Discectomy, spine, cervical, anterior approach, with fusion FDA Start: 03-08-2024 Discectomy, spine, cervical, anterior approach, with fusion FDA Start: 03-08-2024 Discectomy, spine, cervical, anterior approach, with fusion FDA Start: 03-08-2024 Discectomy, spine, cervical, anterior approach, with fusion FDA Start: 03-08-2024 Discectomy, spine, cervical, anterior approach, with fusion FDA Start: 03-08-2024 Discectomy, spine, cervical, anterior approach, with fusion FDA Start: 03-08-2024 Discectomy, spine, cervical, anterior approach, with fusion FDA Start: 03-08-2024 Discectomy, spine, cervical, anterior approach, with fusion FDA Start: 03-08-2024 Discectomy, spine, cervical, anterior approach, with fusion FDA Start: 03-08-2024 Discectomy, spine, cervical, anterior approach, with fusion FDA Start: 03-08-2024 Discectomy, spine, cervical, anterior approach, with fusion FDA Start: 03-08-2024 Discectomy, spine, cervical, anterior approach, with fusion FDA Start: 03-08-2024 Discectomy, spine, cervical, anterior approach, with fusion FDA Start: 03-08-2024 Discectomy, spine, cervical, anterior approach, with fusion FDA Start: 03-08-2024 Discectomy, spine, cervical, anterior approach, with fusion FDA Start: 03-08-2024 Discectomy, spine, cervical, anterior approach, with fusion FDA Start: 03-08-2024 Discectomy, spine, cervical, anterior approach, with fusion FDA Start: 03-08-2024 Discectomy, spine, cervical, anterior approach, with fusion FDA Start: 03-08-2024 Discectomy, spine, cervical, anterior approach, with fusion FDA Start: 03-08-2024 Discectomy, spine, cervical, anterior approach, with fusion FDA Start: 03-08-2024 Discectomy, spine, cervical, anterior approach, with fusion FDA Start: 03-08-2024 Discectomy, spine, cervical, anterior approach, with fusion FDA Start: 03-08-2024 Discectomy, spine, cervical, anterior approach, with fusion FDA Start: 03-08-2024 Discectomy, spine, cervical, anterior approach, with fusion FDA Start: 03-08-2024 Discectomy, spine, cervical, anterior approach, with fusion FDA Start: 03-08-2024 Discectomy, spine, cervical, anterior approach, with fusion FDA Start: 03-08-2024 Discectomy, spine, cervical, anterior approach, with fusion FDA Start: 03-08-2024 Discectomy, spine, cervical, anterior approach, with fusion FDA Start: 03-08-2024 Discectomy, spine, cervical, anterior approach, with fusion FDA Start: 03-08-2024 Discectomy, spine, cervical, anterior approach, with fusion FDA Start: 03-08-2024 Discectomy, spine, cervical, anterior approach, with fusion FDA Start: 03-08-2024 Discectomy, spine, cervical, anterior approach, with fusion FDA Start: 03-08-2024 Discectomy, spine, cervical, anterior approach, with fusion FDA Start: 03-08-2024 Discectomy, spine, cervical, anterior approach, with fusion FDA Start: 03-08-2024 Discectomy, spine, cervical, anterior approach, with fusion FDA Start: 03-08-2024 Discectomy, spine, cervical, anterior approach, with fusion FDA Start: 03-08-2024 Discectomy, spine, cervical, anterior approach, with fusion FDA Start: 03-08-2024 Discectomy, spine, cervical, anterior approach, with fusion FDA Start: 03-08-2024 Discectomy, spine, cervical, anterior approach, with fusion PUTTY,BONE .5CC DBX FDA Start: 03-08-2024 Discectomy, spine, cervical, anterior approach, with fusion ref- [id number] 16mm fixed angle screw FDA Start: 03-08-2024 Discectomy, spine, cervical, anterior approach, with fusion ref- [id number] 15mm rescue screw FDA Start: 03-08-2024 Discectomy, spine, cervical, anterior approach, with fusion ref- [id number] anatomic cervical allograft spacer FDA Start: 03-08-2024 Discectomy, spine, cervical, anterior approach, with fusion ref- [id number] anatomic cervical allograft spacer FDA Start: 03-08-2024 Discectomy, spine, cervical, anterior approach, with fusion ref- [id number] 42.5mm plate FDA Start: 03-08-2024 Discectomy, spine, cervical, anterior approach, with fusion SEALANT,FLOSEAL HEMOSTATIC 5ML FDA Start: 03-08-2024 Discectomy, spine, cervical, anterior approach, with fusion SUTURE,LIGA CLIP MED LT200 FDA Start: 03-08-2024 Discectomy, spine, cervical, anterior approach, with fusion SUTURE,LIGA CLIP MED LT200 FDA Start: 03-08-2024 Discectomy, spine, cervical, anterior approach, with fusion ref- [id number] 14mm fixed angle screw FDA Start: 03-08-2024 Discectomy, spine, cervical, anterior approach, with fusion ref- [id number] 15mm fixed angle screw FDA Start: 03-08-2024 Discectomy, spine, cervical, anterior approach, with fusion ref- [id number] 16mm fixed angle screw FDA Start: 03-08-2024 Discectomy, spine, cervical, anterior approach, with fusion ref- [id number] 16mm fixed angle screw FDA Start: 03-08-2024 Discectomy, spine, cervical, anterior approach, with fusion ref- [id number] 16mm fixed angle screw FDA Start: 03-08-2024 Discectomy, spine, cervical, anterior approach, with fusion PUTTY,BONE .5CC DBX FDA Start: 03-08-2024 Discectomy, spine, cervical, anterior approach, with fusion ref- [id number] 16mm fixed angle screw FDA Start: 03-08-2024 Discectomy, spine, cervical, anterior approach, with fusion ref- [id number] 15mm rescue screw FDA Start: 03-08-2024 Discectomy, spine, cervical, anterior approach, with fusion ref- [id number] anatomic cervical allograft spacer FDA Start: 03-08-2024 Discectomy, spine, cervical, anterior approach, with fusion ref- [id number] anatomic cervical allograft spacer FDA Start: 03-08-2024 Discectomy, spine, cervical, anterior approach, with fusion ref- [id number] 42.5mm plate FDA Start: 03-08-2024 Discectomy, spine, cervical, anterior approach, with fusion SEALANT,FLOSEAL HEMOSTATIC 5ML FDA Start: 03-08-2024 Discectomy, spine, cervical, anterior approach, with fusion SUTURE,LIGA CLIP MED LT200 FDA Start: 03-08-2024 Discectomy, spine, cervical, anterior approach, with fusion SUTURE,LIGA CLIP MED LT200 FDA Start: 03-08-2024 Discectomy, spine, cervical, anterior approach, with fusion ref- [id number] 14mm fixed angle screw FDA Start: 03-08-2024 Discectomy, spine, cervical, anterior approach, with fusion ref- [id number] 15mm fixed angle screw FDA Start: 03-08-2024 Discectomy, spine, cervical, anterior approach, with fusion ref- [id number] 16mm fixed angle screw FDA Start: 03-08-2024 Discectomy, spine, cervical, anterior approach, with fusion ref- [id number] 16mm fixed angle screw FDA Start: 03-08-2024 Discectomy, spine, cervical, anterior approach, with fusion ref- [id number] 16mm fixed angle screw FDA Start: 03-08-2024 Discectomy, spine, cervical, anterior approach, with fusion FDA Start: 03-08-2024 Discectomy, spine, cervical, anterior approach, with fusion FDA Start: 03-08-2024 Discectomy, spine, cervical, anterior approach, with fusion FDA Start: 03-08-2024 Discectomy, spine, cervical, anterior approach, with fusion FDA Start: 03-08-2024 Discectomy, spine, cervical, anterior approach, with fusion FDA Start: 03-08-2024 Discectomy, spine, cervical, anterior approach, with fusion FDA Start: 03-08-2024 Discectomy, spine, cervical, anterior approach, with fusion FDA Start: 03-08-2024 Discectomy, spine, cervical, anterior approach, with fusion FDA Start: 03-08-2024 Discectomy, spine, cervical, anterior approach, with fusion FDA Start: 03-08-2024 Discectomy, spine, cervical, anterior approach, with fusion FDA Start: 03-08-2024 Discectomy, spine, cervical, anterior approach, with fusion FDA Start: 03-08-2024 Discectomy, spine, cervical, anterior approach, with fusion FDA Start: 03-08-2024 Discectomy, spine, cervical, anterior approach, with fusion FDA Start: 03-08-2024 Discectomy, spine, cervical, anterior approach, with fusion FDA Start: 03-08-2024 Discectomy, spine, cervical, anterior approach, with fusion PUTTY,BONE .5CC DBX FDA Start: 03-08-2024 Discectomy, spine, cervical, anterior approach, with fusion ref- [id number] 16mm fixed angle screw FDA Start: 03-08-2024 Discectomy, spine, cervical, anterior approach, with fusion ref- [id number] 15mm rescue screw FDA Start: 03-08-2024 Discectomy, spine, cervical, anterior approach, with fusion ref- [id number] anatomic cervical allograft spacer FDA Start: 03-08-2024 Discectomy, spine, cervical, anterior approach, with fusion ref- [id number] anatomic cervical allograft spacer FDA Start: 03-08-2024 Discectomy, spine, cervical, anterior approach, with fusion ref- [id number] 42.5mm plate FDA Start: 03-08-2024 Discectomy, spine, cervical, anterior approach, with fusion SEALANT,FLOSEAL HEMOSTATIC 5ML FDA Start: 03-08-2024 Discectomy, spine, cervical, anterior approach, with fusion SUTURE,LIGA CLIP MED LT200 FDA Start: 03-08-2024 Discectomy, spine, cervical, anterior approach, with fusion SUTURE,LIGA CLIP MED LT200 FDA Start: 03-08-2024 Discectomy, spine, cervical, anterior approach, with fusion ref- [id number] 14mm fixed angle screw FDA Start: 03-08-2024 Discectomy, spine, cervical, anterior approach, with fusion ref- [id number] 15mm fixed angle screw FDA Start: 03-08-2024 Discectomy, spine, cervical, anterior approach, with fusion ref- [id number] 16mm fixed angle screw FDA Start: 03-08-2024 Discectomy, spine, cervical, anterior approach, with fusion ref- [id number] 16mm fixed angle screw FDA Start: 03-08-2024 Discectomy, spine, cervical, anterior approach, with fusion ref- [id number] 16mm fixed angle screw FDA Start: 03-08-2024 Discectomy, spine, cervical, anterior approach, with fusion FDA Start: 03-08-2024 Discectomy, spine, cervical, anterior approach, with fusion FDA Start: 03-08-2024 Discectomy, spine, cervical, anterior approach, with fusion FDA Start: 03-08-2024 Discectomy, spine, cervical, anterior approach, with fusion FDA Start: 03-08-2024 Discectomy, spine, cervical, anterior approach, with fusion FDA Start: 03-08-2024 Discectomy, spine, cervical, anterior approach, with fusion FDA Start: 03-08-2024 Discectomy, spine, cervical, anterior approach, with fusion FDA Start: 03-08-2024 Discectomy, spine, cervical, anterior approach, with fusion FDA Start: 03-08-2024 Discectomy, spine, cervical, anterior approach, with fusion FDA Start: 03-08-2024 Discectomy, spine, cervical, anterior approach, with fusion FDA Start: 03-08-2024 Discectomy, spine, cervical, anterior approach, with fusion FDA Start: 03-08-2024 Discectomy, spine, cervical, anterior approach, with fusion FDA Start: 03-08-2024 Discectomy, spine, cervical, anterior approach, with fusion FDA Start: 03-08-2024 Discectomy, spine, cervical, anterior approach, with fusion FDA Start: 03-08-2024 Discectomy, spine, cervical, anterior approach, with fusion FDA Start: 03-08-2024 Discectomy, spine, cervical, anterior approach, with fusion FDA Start: 03-08-2024 Discectomy, spine, cervical, anterior approach, with fusion FDA Start: 03-08-2024 Discectomy, spine, cervical, anterior approach, with fusion FDA Start: 03-08-2024 Discectomy, spine, cervical, anterior approach, with fusion FDA Start: 03-08-2024 Discectomy, spine, cervical, anterior approach, with fusion FDA Start: 03-08-2024 Discectomy, spine, cervical, anterior approach, with fusion FDA Start: 03-08-2024 Discectomy, spine, cervical, anterior approach, with fusion FDA Start: 03-08-2024 Discectomy, spine, cervical, anterior approach, with fusion FDA Start: 03-08-2024 Discectomy, spine, cervical, anterior approach, with fusion FDA Start: 03-08-2024 Discectomy, spine, cervical, anterior approach, with fusion FDA Start: 03-08-2024 Discectomy, spine, cervical, anterior approach, with fusion FDA Start: 03-08-2024 Discectomy, spine, cervical, anterior approach, with fusion FDA Start: 03-08-2024 Discectomy, spine, cervical, anterior approach, with fusion FDA Start: 03-08-2024 Discectomy, spine, cervical, anterior approach, with fusion PUTTY,BONE .5CC DBX FDA Start: 03-08-2024 Discectomy, spine, cervical, anterior approach, with fusion ref- [id number] 16mm fixed angle screw FDA Start: 03-08-2024 Discectomy, spine, cervical, anterior approach, with fusion ref- [id number] 15mm rescue screw FDA Start: 03-08-2024 Discectomy, spine, cervical, anterior approach, with fusion ref- [id number] anatomic cervical allograft spacer FDA Start: 03-08-2024 Discectomy, spine, cervical, anterior approach, with fusion ref- [id number] anatomic cervical allograft spacer FDA Start: 03-08-2024 Discectomy, spine, cervical, anterior approach, with fusion ref- [id number] 42.5mm plate FDA Start: 03-08-2024 Discectomy, spine, cervical, anterior approach, with fusion SEALANT,FLOSEAL HEMOSTATIC 5ML FDA Start: 03-08-2024 Discectomy, spine, cervical, anterior approach, with fusion SUTURE,LIGA CLIP MED LT200 FDA Start: 03-08-2024 Discectomy, spine, cervical, anterior approach, with fusion SUTURE,LIGA CLIP MED LT200 FDA Start: 03-08-2024 Discectomy, spine, cervical, anterior approach, with fusion ref- [id number] 14mm fixed angle screw FDA Start: 03-08-2024 Discectomy, spine, cervical, anterior approach, with fusion ref- [id number] 15mm fixed angle screw FDA Start: 03-08-2024 Discectomy, spine, cervical, anterior approach, with fusion ref- [id number] 16mm fixed angle screw FDA Start: 03-08-2024 Discectomy, spine, cervical, anterior approach, with fusion ref- [id number] 16mm fixed angle screw FDA Start: 03-08-2024 Discectomy, spine, cervical, anterior approach, with fusion ref- [id number] 16mm fixed angle screw FDA Start: 03-08-2024 Discectomy, spine, cervical, anterior approach, with fusion PUTTY,BONE .5CC DBX FDA Start: 03-08-2024 Discectomy, spine, cervical, anterior approach, with fusion ref- [id number] 16mm fixed angle screw FDA Start: 03-08-2024 Discectomy, spine, cervical, anterior approach, with fusion ref- [id number] 15mm rescue screw FDA Start: 03-08-2024 Discectomy, spine, cervical, anterior approach, with fusion ref- [id number] anatomic cervical allograft spacer FDA Start: 03-08-2024 Discectomy, spine, cervical, anterior approach, with fusion ref- [id number] anatomic cervical allograft spacer FDA Start: 03-08-2024 Discectomy, spine, cervical, anterior approach, with fusion ref- [id number] 42.5mm plate FDA Start: 03-08-2024 Discectomy, spine, cervical, anterior approach, with fusion SEALANT,FLOSEAL HEMOSTATIC 5ML FDA Start: 03-08-2024 Discectomy, spine, cervical, anterior approach, with fusion SUTURE,LIGA CLIP MED LT200 FDA Start: 03-08-2024 Discectomy, spine, cervical, anterior approach, with fusion SUTURE,LIGA CLIP MED LT200 FDA Start: 03-08-2024 Discectomy, spine, cervical, anterior approach, with fusion ref- [id number] 14mm fixed angle screw FDA Start: 03-08-2024 Discectomy, spine, cervical, anterior approach, with fusion ref- [id number] 15mm fixed angle screw FDA Start: 03-08-2024 Discectomy, spine, cervical, anterior approach, with fusion ref- [id number] 16mm fixed angle screw FDA Start: 03-08-2024 Discectomy, spine, cervical, anterior approach, with fusion ref- [id number] 16mm fixed angle screw FDA Start: 03-08-2024 Discectomy, spine, cervical, anterior approach, with fusion ref- [id number] 16mm fixed angle screw FDA Start: 03-08-2024 Discectomy, spine, cervical, anterior approach, with fusion PUTTY,BONE .5CC DBX FDA Start: 03-08-2024 Discectomy, spine, cervical, anterior approach, with fusion ref- [id number] 16mm fixed angle screw FDA Start: 03-08-2024 Discectomy, spine, cervical, anterior approach, with fusion ref- [id number] 15mm rescue screw FDA Start: 03-08-2024 Discectomy, spine, cervical, anterior approach, with fusion ref- [id number] anatomic cervical allograft spacer FDA Start: 03-08-2024 Discectomy, spine, cervical, anterior approach, with fusion ref- [id number] anatomic cervical allograft spacer FDA Start: 03-08-2024 Discectomy, spine, cervical, anterior approach, with fusion ref- [id number] 42.5mm plate FDA Start: 03-08-2024 Discectomy, spine, cervical, anterior approach, with fusion SEALANT,FLOSEAL HEMOSTATIC 5ML FDA Start: 03-08-2024 Discectomy, spine, cervical, anterior approach, with fusion SUTURE,LIGA CLIP MED LT200 FDA Start: 03-08-2024 Discectomy, spine, cervical, anterior approach, with fusion SUTURE,LIGA CLIP MED LT200 FDA Start: 03-08-2024 Discectomy, spine, cervical, anterior approach, with fusion ref- [id number] 14mm fixed angle screw FDA Start: 03-08-2024 Discectomy, spine, cervical, anterior approach, with fusion ref- [id number] 15mm fixed angle screw FDA Start: 03-08-2024 Discectomy, spine, cervical, anterior approach, with fusion ref- [id number] 16mm fixed angle screw FDA Start: 03-08-2024 Discectomy, spine, cervical, anterior approach, with fusion ref- [id number] 16mm fixed angle screw FDA Start: 03-08-2024 Discectomy, spine, cervical, anterior approach, with fusion ref- [id number] 16mm fixed angle screw FDA Start: 03-08-2024 Discectomy, spine, cervical, anterior approach, with fusion FDA Start: 03-08-2024 Discectomy, spine, cervical, anterior approach, with fusion FDA Start: 03-08-2024 Discectomy, spine, cervical, anterior approach, with fusion FDA Start: 03-08-2024 Discectomy, spine, cervical, anterior approach, with fusion FDA Start: 03-08-2024 Discectomy, spine, cervical, anterior approach, with fusion FDA Start: 03-08-2024 Discectomy, spine, cervical, anterior approach, with fusion FDA Start: 03-08-2024 Discectomy, spine, cervical, anterior approach, with fusion FDA Start: 03-08-2024 Discectomy, spine, cervical, anterior approach, with fusion FDA Start: 03-08-2024 Discectomy, spine, cervical, anterior approach, with fusion FDA Start: 03-08-2024 Discectomy, spine, cervical, anterior approach, with fusion FDA Start: 03-08-2024 Discectomy, spine, cervical, anterior approach, with fusion FDA Start: 03-08-2024 Discectomy, spine, cervical, anterior approach, with fusion FDA Start: 03-08-2024 Discectomy, spine, cervical, anterior approach, with fusion FDA Start: 03-08-2024 Discectomy, spine, cervical, anterior approach, with fusion FDA Start: 03-08-2024 Discectomy, spine, cervical, anterior approach, with fusion FDA Start: 03-08-2024 Discectomy, spine, cervical, anterior approach, with fusion FDA Start: 03-08-2024 Discectomy, spine, cervical, anterior approach, with fusion FDA Start: 03-08-2024 Discectomy, spine, cervical, anterior approach, with fusion FDA Start: 03-08-2024 Discectomy, spine, cervical, anterior approach, with fusion FDA Start: 03-08-2024 Discectomy, spine, cervical, anterior approach, with fusion FDA Start: 03-08-2024 Discectomy, spine, cervical, anterior approach, with fusion FDA Start: 03-08-2024 Discectomy, spine, cervical, anterior approach, with fusion FDA Start: 03-08-2024 Discectomy, spine, cervical, anterior approach, with fusion FDA Start: 03-08-2024 Discectomy, spine, cervical, anterior approach, with fusion FDA Start: 03-08-2024 Discectomy, spine, cervical, anterior approach, with fusion FDA Start: 03-08-2024 Discectomy, spine, cervical, anterior approach, with fusion FDA Start: 03-08-2024 Discectomy, spine, cervical, anterior approach, with fusion FDA Start: 03-08-2024 Discectomy, spine, cervical, anterior approach, with fusion FDA Start: 03-08-2024 [id number] Start: 05-07-2023 End: 04-18-2025 Comment on above: USE TO TEST BLOOD LIND GAR 2 TIMES A DAY USE TO TEST BLOO D SUGAR 2 TIMES A DAY [id number] Start: 05-07-2023 USE TO TEST BLOO D SUGAR 2 TIMES A DAY [id number] Start: 05-07-2023 USE TO TEST BLOO D SUGAR 2 TIMES A DAY [id number] Start: 05-07-2023 Goals Date Patient Goal Desired Activity /State Comment on above: No gaol Barriers: none Plan for overcoming my barriers: none Confidence: none Anticipated Goal Completion Date: none Formatting of this n ote might be different from the original. No gaol Barriers: none Plan for overcoming my barriers: none Confidence: none Anticipated Goal Completion Date: none Functional Status Date Assessment Result Facility 09-07-2025 Patient Health [facility] ionnaire 2 item (PHQ-2) [Reported] [facility] 08-22-2025 Functional status Ambulates [facility] Work Phone: 04-18-2025 Alcohol Use Disorder Identification Test [AUDIT] [facility] 04-18-2025 Patient Health [facility] ionnaire 2 item (PHQ-2) [Reported] [facility] 03-24-2025 Functional status Up ad tevin;Bath room Privilege [facility] Work Phone: 02-21-2025 Patient Health [facility] ionnaire 2 item (PHQ-2) [Reported] [facility] 01-18-2025 Functional status Chair [facility] Work Phone: 12-16-2024 Functional status Ambulates;Up ad tevin [facility] Work Phone: 03-09-2024 Functional status Bedrest [facility] Work Phone: 05-06-2023 Functional status Bedrest [facility] Work Phone: 11-21-2022 Functional status Ambulates [facility] Work Phone: [facility] Mental Status Date Assessment Result Facility 08-22-2025 Cognitive function Voice/Name [facility] Work Phone: 06-28-2025 Cognitive function Voice/Name [facility] Work Phone: 03-23-2025 [facility]: 01-18-2025 Cognitive function Voice/Name [facility] Work Phone: 12-16-2024 Cognitive function Voice/Name [facility] Work Phone: 11-16-2024 Cognitive function Awake;Alert;A ppropriate;[facility] Work Phone: 04-27-2024 Cognitive function Voice/Name [facility] Work Phone: 03-09-2024 Cognitive function Level Of Cons ciousness Awake;Alert;Appropriate;Follo [facility] Work Phone: 03-09-2024 Cognitive function Voice/Name [facility] Work Phone: 10-18-2023 Cognitive function Voice/Name [facility] Work Phone: 10-05-2023 Cognitive function Voice/Name [facility] Work Phone: 07-01-2023 Cognitive function Voice/Name [facility] Work Phone: 05-05-2023 Cognitive function Voice/Name;Touch/Shaki ng [facility] Work Phone: 03-19-2023 Cognitive function Voice/Name [facility] Work Phone: 11-20-2022 Cognitive function Voice/Name [facility] Work Phone: 05-27-2022 Cognitive function Awake;Alert [facility] Work Phone: 05-20-2022 Cognitive function Voice/Name [facility] Work Phone: 05-02-2021 Cognitive function Touch/Shaking [facility] Work Phone: Clinical Notes 07-17-2003 to 09-14-2025 Katie Peck MA - 09/14/2025 11:30 AM Sony Hatch MD - 09/14/2025 11:30 AM Martín Peck MA - 09/14/2025 11:30 AM Sony Hatch MD - 09/14/2025 11:30 AM EST Note Date & Type Note Facility 09-14-2025 History of Present illness Narrative The patient, Kenn Arshad, identity was verified by name and . Supervising provider for clinic visit: Dr. Eleuterio Hatch Chief Complaint Patient presents with Blood Pressure Check Reason for visit: Elevated BP Reading at last visit Kenn Arshad has validated current medications Patient states compliant with medications as written: Yes BP medication taken prior to this visit? Yes Are you having any symptoms? No Current Blood Pressure:147/61 Current Heart Rate:78 Did Blood Pressure need rechecked: yes Second Blood Pressure Readin/64 Second Heart Rate: 78 Assessment/Plan: There are no diagnoses linked to this encounter. elevated Future Appointments Date Time Provider Department Center 09/14/2025 11:30 AM SCHEDULE [facility] [place] [facility] 04/19/2026 10:20 AM Celsa Jacobs [facility] Cc'd provider blood pressure readings? Yes Blood's pressure is still a little high I would recommend adding chlorthalidone 25 mg daily and recheck blood pressure in 1 to 2 weeks. documented in this encounter [facility] 09-14-2025 History of Present illness Narrative The patient, Kenn Arshad, identity was verified by name and . Supervising provider for clinic visit: Dr. Eleuterio Hatch Chief Complaint Patient presents with Blood Pressure Check Reason for visit: Elevated BP Reading at last visit Kenn Arshad has validated current medications Patient states compliant with medications as written: Yes BP medication taken prior to this visit? Yes Are you having any symptoms? No Current Blood Pressure:147/61 Current Heart Rate:78 Did Blood Pressure need rechecked: yes Second Blood Pressure Readin/64 Second Heart Rate: 78 Assessment/Plan: There are no diagnoses linked to this encounter. elevated Future Appointments Date Time Provider Department Center 09/14/2025 11:30 AM SCHEDULE [facility] 04/19/2026 10:20 AM LEXI Hillman CNP [facility] [place] [facility] Cc'd provider blood pressure readings? Yes Blood's pressure is still a little high I would recommend adding chlorthalidone 25 mg daily and recheck blood pressure in 1 to 2 weeks. Spoke with patient he is agreeable to starting chlorthalidone 25 mg daily, verified patients pharmacy [facility]. Patient scheduled for b/p nurse visit in 2 weeks. Rx sent for chlorthalidone 25 mg by mouth once daily to the [facility] in [place] Follow-up as scheduled on 09/29/2025 for repeat blood pressure check. documented in this encounter [facility] 09-14-2025 Miscellaneous Notes Addended by: SARA MONTEJO on: 09/15/2025 09:32 AM Modules accepted: Orders documented in this encounter [facility] 09-14-2025 Note Addended by: SARA MONTEJO on: 09/15/2025 09:32 AM Modules accepted: Orders [facility] 09-14-2025 Note Addended by: SARA MONTEJO on: 09/15/2025 09:32 AM Modules accepted: Orders [facility] 09-07-2025 Evaluation + Plan note Associated Problem(s): Hypercholesterolemia Controlled, continue rosuvastatin 40 mg daily [facility] 09-07-2025 Miscellaneous Notes Associated Problem(s): Hypercholesterolemia Controlled, continue rosuvastatin 40 mg daily Associated Problem(s): Renal cell carcinoma of right kidney (HCC) Currently stable he is taking Keytruda IV every 21 days Associated Problem(s): Elevated PSA PSA is borderline, will recheck his level today since has been a year and a half since it was checked Associated Problem(s): Celiac disease Stable, avoid gluten Associated Problem(s): Essential hypertension Blood pressure was initially elevated, recheck was still elevated will have him follow-up in 1 week for blood pressure check continue amlodipine 10 mg daily carvedilol 25 mg twice a day, hydralazine 50 mg twice a day Associated Problem(s): Aortic stenosis, mild Stable, being followed by cardiology Associated Problem(s): COPD (chronic obstructive pulmonary disease) (HCC) Stable, he has DuoNeb solution for his nebulizer and is a former smoker. documented in this encounter [facility] 09-07-2025 Evaluation + Plan note Associated Problem(s): Renal cell carcinoma of right kidney (HCC) Currently stable he is taking Keytruda IV every 21 days [facility] 09-07-2025 Evaluation + Plan note Associated Problem(s): Elevated PSA PSA is borderline, will recheck his level today since has been a year and a half since it was checked [facility] 09-07-2025 Evaluation + Plan note Associated Problem(s): Celiac disease Stable, avoid gluten [facility] 09-07-2025 Evaluation + Plan note Associated Problem(s): Essential hypertension Blood pressure was initially elevated, recheck was still elevated will have him follow-up in 1 week for blood pressure check continue amlodipine 10 mg daily carvedilol 25 mg twice a day, hydralazine 50 mg twice a day [facility] 09-07-2025 Evaluation + Plan note Associated Problem(s): Aortic stenosis, mild Stable, being followed by cardiology [facility] 09-07-2025 Evaluation + Plan note Associated Problem(s): COPD (chronic obstructive pulmonary disease) (HCC) Stable, he has DuoNeb solution for his nebulizer and is a former smoker. [facility] 09-07-2025 History of Present illness Narrative Patient verified by last name and date of . Images from the original note were not included. Martha Canalesmy martha Betancur this alex still on Keytruda he is on IV Keytruda. His IV every 21 days said patient not taking it this Thursday already yet taken off this when here said that not taken I said keep it active and it did not did just I put 09/07/2025 Kenn Arshad (: 1955) is a 69 y.o. male , Established patient, here for evaluation of the following chief complaint(s): New Patient (New to provider ), Medication Check (Pt states he is no diabetic ), and Establish Care (Pt has multiple cancer- had immunotherapy treatment yesterday ) ASSESSMENT/PLAN: 1. Chronic bronchitis, unspecified chronic bronchitis type (HCC) Assessment & Plan: Stable, he has DuoNeb solution for his nebulizer and is a former smoker. 2. Aortic stenosis, mild Assessment & Plan: Stable, being followed by cardiology 3. Essential hypertension Assessment & Plan: Blood pressure was initially elevated, recheck was still elevated will have him follow-up in 1 week for blood pressure check continue amlodipine 10 mg daily carvedilol 25 mg twice a day, hydralazine 50 mg twice a day 4. Celiac disease Assessment & Plan: Stable, avoid gluten 5. Hypercholesterolemia Assessment & Plan: Controlled, continue rosuvastatin 40 mg daily Orders: - Lipid panel 6. Elevated PSA Assessment & Plan: PSA is borderline, will recheck his level today since has been a year and a half since it was checked Orders: - PSA Total (Screening) 7. Screening for prostate cancer - PSA Total (Screening) 8. Screening for diabetes mellitus - Comprehensive metabolic panel 9. Renal cell carcinoma of right kidney (HCC) Assessment & Plan: Currently stable he is taking Keytruda IV every 21 days Follow up in about 6 months (around 03/08/2026). SUBJECTIVE/OBJECTIVE: CARLY Mccormack comes in today to establish with our practice as a new patient although he is not new to [facility]. He has all host of problems which includes chronic bronchitis, he has renal cell carcinoma of the right kidney with mets to his lung. 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 He has hypertension and his blood pressure is elevated today we will recheck that prior to discharge. He has coronary artery disease and celiac disease and both these seem to be fairly well-controlled at this time. He also has hyperlipidemia which is controlled with rosuvastatin. Review of Systems Constitutional: Negative for activity change, appetite change, chills, fever and unexpected weight change. HENT: Negative for ear pain and sore throat. Respiratory: Negative for shortness of breath. Cardiovascular: Negative for chest pain and palpitations. Gastrointestinal: Negative for abdominal pain, blood in stool, constipation and diarrhea. Genitourinary: Negative for dysuria, frequency, hematuria and urgency. Musculoskeletal: Negative for arthralgias and back pain. Skin: Negative. Neurological: Negative for weakness and numbness. Psychiatric/Behavioral: Negative for dysphoric mood. The patient is not nervous/anxious. Vitals: 09/07/25 1433 09/07/25 1507 BP: (!) 145/61 (!) 146/64 Pulse: 80 77 SpO2: 92% Weight: 186 lb 6.4 oz (84.6 kg) Height: 5' 6 (1.676 m) Physical Exam Vitals and nursing note reviewed. Constitutional: General: He is not in acute distress. Appearance: Normal appearance. HENT: Right Ear: Tympanic membrane, ear canal and external ear normal. Left Ear: Tympanic membrane, ear canal and external ear normal. Mouth/Throat: Mouth: Mucous membranes are moist. Pharynx: Oropharynx is clear. Eyes: Extraocular Movements: Extraocular movements intact. Conjunctiva/sclera: Conjunctivae normal. Pupils: Pupils are equal, round, and reactive to light. Neck: Thyroid: No thyromegaly. Vascular: No carotid bruit. Cardiovascular: Rate and Rhythm: Normal rate and regular rhythm. Heart sounds: Murmur heard. Systolic murmur is present with a grade of 4/6. Pulmonary: Effort: Pulmonary effort is normal. Breath sounds: Normal breath sounds. Abdominal: General: Bowel sounds are normal. Palpations: Abdomen is soft. Tenderness: There is no abdominal tenderness. Musculoskeletal: General: Normal range of motion. Cervical back: Neck supple. Lymphadenopathy: Cervical: No cervical adenopathy. Skin: General: Skin is warm and dry. Neurological: General: No focal deficit present. Mental Status: He is alert and oriented to person, place, and time. Psychiatric: Mood and Affect: Mood normal. An electronic signature was used to authenticate this note. Eleuterio Hatch MD 09/07/2025 3:30 PM documented in this encounter [facility] 08-29-2025 Note HNO ID: [id number] Author: FRANCOIS ACEVEDO MD Service: ? Author Type: Physician Type: Progress Notes Filed: 08/29/2025 11:46 Note Text: NEUROSURGERY FOLLOW UP OFFICE NOTE Dr. Francois Acevedo MD, FACS Date of visit: August 29, 2025 Patient Name: Mr.Larry Linda Arshad . Date of : 1955 Current Age: [age] year old Sex: male MRN/E# [id number] Last Office Visit: 05/23/2025 CHIEF COMPLAINT: Patient presents with: Established Patient SUBJECTIVE: The patient presents as a follow up with imaging (MRI B perfusion) for evaluation. This is a 69-year-old male with a PMHx of stage IV [...] SRS (SBRT) to the metastatic lesion at [place]. Two months following treatment MRI was completed [...] recurrent seizures and was not taking any antiepileptics. Neurologically he was intact. MRI brain from April 2023 showed a mix of necrosis as well as viable tumor. MRI with perfusion was then obtained which showed evidence of perilesional edema likely to be necrosis rather than recurrent tumor. Attempt to wean him off Decadron was not successful. He sustained a fall in October [address] was suspicious for tumor progression/edema. 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 Since then he has been seen routinely with imaging and has remained nonsurgical. He was seen on 11/18/2024 and was doing well. He continued with persistent, slight dizziness on a daily basis and numbness and tingling to the right side of his body both of which have been ongoing for over 1 year. He continued on Decadron 0.5mg daily. MRI with perfusion was showed the left temporoparietal lesion had gotten smaller without evidence of increased blood flow to suggest recurrence of tumor. There was no evidence of new lesions noted. He was given a weaning schedule to come off the Decadron over 2 weeks and advised to contact the office should he develop any neurological symptoms. Recommendation otherwise was to follow-up in 6 months with a repeat MRI with perfusion sequence for continued monitoring. He was last seen in the office on 05/23/2025 and continued to do well. He denied any new or concerning neurological complaints or concerns. He had successfully weaned off Decadron and tolerated that well. Neurologically he was stable on exam. MRI was reviewed and showed reduction in size of the treated lesion with no new areas of concern. He was advised to continue with oncology visits every 3 weeks for ongoing treatment. Recommendation was to follow-up with a repeat MRI with perfusion study in 6 months for continued monitoring and to contact the office with any changes in vision, balance or hand movements. Prior to his scheduled follow-up in November 2025, the patient and his contacted the office with reports of worsening dizziness/vertigo and gait imbalance. Given the symptoms, recommendation was to move up the MRI brain and follow-up in the office for evaluation prompting his visit today. He states his symptoms are not worse than the last time he saw us but they are not getting better. He reports continued vertigo, dizziness and balance issues. He denies any recent falls or trauma. He denies headache, visual changes, speech deficits, seizure activity, motor or sensory deficits. He denies any sinus issues or recent URI issues. He presents for image review, evaluation and plan of care. MEDICATIONS: Keppra: No Dexamethasone: No SYMPTOMS: Dizziness, vertigo, balance issues SURGICAL RISK: Smoker: Former-quit 03/12/2021 Diabetic: No Anticoagulants / Antiplatelets: Rhonda (PE) Occupation: N/A PREVIOUS NEURO (more content not included)... [facility] 08-24-2025 Progress note Note Date/Time August 24, 2025 2:59pm [facility] [address], [address] [place] [address] OFFICE VISIT Date of Service: 08/24/25 MR#: [id number] Acct: [id number] Name: KENN ARSHAD Linda Rep #: [id number] : 1955 Provider: Dr. Zachary Farrar MD Age/Sex: 69/M Location: [facility] Status: Signed Intake Vital Signs 08/20/25 08:44 08/24/25 14:50 Height 5 ft 5 in BP 143/70 H Blood Pressure Location Lt brachial Position Sitting Respiration 18 Pulse 85 Pulse Source Monitor Pulse Oximetry (%) 92 Oxygen Delivery Method room air Intake Visit Reasons: follow up Chief Complaint: follow up cat bite Is patient in pain?: No Allergies gluten Allergy (Verified 08/24/25 14:50) Abd cramps/diarrhea Medications ?Medication ?Instructions ?Recorded ?Confirmed ?Type rosuvastatin 40 mg tablet (Crestor) 40 mg PO QHS YING STEROL 08/18/18 08/24/25 History carvedilol 25 mg tablet 25 mg PO BID blood pressure 04/30/21 08/24/25 History hydralazine 50 mg tablet 50 mg PO BID blood pressure 05/31/21 08/24/25 History amlodipine 10 mg tablet 10 mg PO DAILY blood pressur e #90 08/21/23 08/24/25 Rx tabs pembrolizumab 25 mg/mL intravenous 200 mg IV Q21D Kidn ey cancer 12/14/24 08/24/25 History solution (Keytruda) fluticasone fur. 100 mcg-umeclid 1 inh inhalation QDAY breathing 06/09/25 08/24/25 Rx 62.5 mcg-vilant 25 mcg #60 ea inhalat.powder (Trelegy Ellipta) ipratropium 0.5 mg-albuterol 3 mg 3 ml inhalation Q4H PRN shortness 06/09/25 08/24/25 Rx (2.5 mg base)/3 mL nebulization of breath or wheezing #180 mL soln triamcinolone acetonide 0.1 % 1 applic topical DAILY i tching of 06/09/25 08/24/25 History topical cream legs budesonide 3 mg 6 mg PO QDAY ciliac disease 08/04/25 08/24/25 History capsule,delayed,extended release apixaban 5 mg tablet (Eliquis) 2.5 mg PO DAILY blood t hinner 08/19/25 08/24/25 History omeprazole 20 mg capsule,delayed 20 mg PO DAILY Gastri c burning 08/19/25 08/24/25 History release apixaban 2.5 mg tablet (Eliquis) 2.5 mg PO BID blood t hinner 08/20/25 08/24/25 History amoxicillin 875 mg-potassium 1 tab PO BID 7 days #14 t abs 08/22/25 08/24/25 Rx clavulanate 125 mg tablet doxycycline hyclate 100 mg capsule 100 mg PO BID 7 day s #14 caps 08/22/25 08/24/25 Rx sulfamethoxazole 800 1 tab PO BID #14 tabs 08/24/25 Rx mg-trimethoprim 160 mg tablet (Bactrim DS) Have you fallen in the past year?: No PFSH Medical History MRSA (methicillin resistant staph aureus) culture positive Acute infective gastroenteritis COPD exacerbation History of steroid therapy Low iron Seizures Shortness of breath on exertion History of pain when walking History of edema History of echocardiogram Cardiology follow-up encounter Cervical spinal cord injury Cervical stenosis of spine Numbness in right leg RUE numbness Diarrhea Hypokalemia Duodenal ulcer Anemia Diabetes mellitus, type 2 Hyperglycemia Hyponatremia Thrombocytopenia Pulmonary emboli COPD (chronic obstructive pulmonary disease) Imbalance Brain metastasis Pneumonia Sinus congestion Hx of radiation therapy Brain metastasis Frequent headaches Epistaxis Contact with or suspected exposure to other viral communicable disease Iron deficiency anemia due to chronic blood loss Encounter for immunotherapy Encounter for immunotherapy COVID-19 Nonrheumatic aortic (valve) stenosis with insufficiency Elevated troponin (05/15/21) Encephalopathy (05/15/21) Seizure (05/15/21) Metastatic renal cell carcinoma to lung Dyspnea Metastasis to adrenal gland Port-A-Cath in place Atherosclerotic heart disease of [place] coronary artery without angina pectoris Hyperlipidemia Wears glasses Wears dentures Gastric reflux Former smoker History of primary malignant neoplasm of left kidney 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 Skin cancer Abnormal colonoscopy Essential (primary) hypertension COPD (chronic obstructive pulmonary disease) Adenocarcinoma of right lung Surgical History H/O cervical discectomy History of cataract surgery History of lobectomy of lung History of nephrectomy, left History of coronary angioplasty (01/05/04) History of coronary artery stent placement (07/17/03) Family History Sister Diabetes CAD (coronary artery disease) Mother CVA (cerebral vascular accident) CAD (coronary artery disease) Lung cancer Father CAD (coronary artery disease) Brother CAD (coronary artery disease) Social History household members: spouse Smoking Status: Former smoker Tobacco: How many years used: 40 second hand exposure: No alcohol intake: current alcohol intake frequency: a few times a month Alcohol type: beer substance use type: does not use seatbelt use: always do you feel safe at home: Yes HPI follow up Details: Doing well since admission. No fever or chills. ROS General General: Yes fatigue; No good health, fever(s) or weight loss HENMT HENMT: No rhinitis, sore throat/mouth sore, nasal congestion, contacts or glaucoma Endo Endocrine: No thyroid disease, polydipsia, heat intolerance, cold intolerance, hepatitis or excessive urine Skin Skin: Yes Bleeding and bruising; No changing moles or suspicious lesion Musc Musculoskeletal: Yes joint pain and muscle weakness; No joint stiffness, back pain, osteoarthritis or Muscle aches/ myalgia Neuro Neurological: No headache(s), Yes lightheadedness and No numbness Cardio Cardiovascular: Yes fatigue; No chest pain, pacemaker or shortness of breat with exertion Psych Psychiatric: No depression, claustrophobia or anxiety Resp Respiratory: No spitting up, shortness of breath, sleep apnea, asthma, emphysema, TB, Cough or Smoker Gastro Gastrointestinal: No diarrhea, constipation, blood in stool, nausea, vomiting orabdominal bloating [place] Hematologic: No anemia, No bleeding and No abnormal bleeding Genitourinary: No urinary frequency, blood in urine or incontinence Exam Details RIGHT Upper Extremity Inspection:Decreased swelling. Improved Palpation: no fluid collections Motor: Able to bend and extend all MP, PIP, and DIP joints. Sensory: Intact to light touch on the radial and ulnar borders. Vascular: Finger tips are warm and well perfused with <2 second capillary refill. Coding Level of Care Code Off vis,est,level 2 Diagnoses Cellulitis L03.90 Assessment and Plan (No Qualifiers) Assessment and Plan (1) Cellulitis: Status: Acute Comment: RUE Plan: Resolved Finish antibiotics Rest and elevation Discussed return precautions F/u as needed Clinical Quality Measures Falls Risk Screening/Assistive Devices Have you fallen in the past year?: No 08/24/25 5300 <Electronically signed by Artemio Farrar MD> Date _ Artemio Farrar MD Cosigner Signature: Date (if applicable) CC: ~ [employer] Work Phone: 1(735) 824-294710-14-2025 Progress note Author Lalo Anastacia [facility] Note Date/Time August 22, 2025 8 :30am [facility] Medical Records Department [address] [place] [address] Progress Note - Surgery 08/22/25820 MR#: [id number] Acct: [id number] Name: KENN ARSHAD Rep #:[id number] : 1955 69 From: Anastacia LAZARO PCP: Dr. Jacob Jennings, DO Status:AD M IN Location: [place] [address] Subjective Subjective Patient seen this morning at PCU bedside. He had his arm elevated and states theswelling is much improved. There was so purulent drainage on his dressing. Objective Data Objective Data Vital Signs: Vital Signs Temp Pulse Resp BP Pulse Ox O2 Del Method 98.2 F 86 16 174/63 H 95 Room Air 08/21/25 14:30 08/22/25 05:07 08/21/25 20:05 08/22/25 05:07 08/21/25 20:05 08/21/25 20:05 Oxygen Delivery Method Room Air Weight: 180 lb 1.883 oz Body Mass Index (BMI) 29.9 Intake & Output: Intake and Output for Last 24 Hours 08/20/25 08/21/25 08/22/25 23:59 23:59 23:59 Intake Total 500 / 500 1242.5 / 1242.5 200 / 200 Balance 500 / 500 1242.5 / 1242.5 200 / 200 Lab / Micro Data Attestation: I reviewed the patient's lab results. 08/22/25 05:15 08/22/25 05:15 Labs: Laboratory Results - last 24 hr 08/22/25 05:15: WBC 6.6, RBC 4.36 L, Hgb 10.6 L, Hct 32.8 L, MCV 75.2 L, MCH 24.3 L, MCHC 32.3, RDW Std Deviation 43.7, RDW Coeff of Kailey 15.9 H, Plt Count 175, MPV 9.4, Immature Gran % (Auto) 1.400 H, Neut % (Auto) 78.8 H, Lymph % (Auto) 10.9 L, [place] % (Auto) 6.8, Eos % (Auto) 1.8, Baso % (Auto) 0.3, Absolute Neuts (auto) 5.2, Absolute Lymphs (auto) 0.72 L, Nucleated RBC % 0, Sodium 140, Potassium 3.7, Chloride 108, Carbon Dioxide 20.2 L, Anion Gap 11, BUN 18, Creatinine 0.79, Estim Creat Clear Calc 83.35, Est GFR (MDRD) Non-Af 95, BUN/Creatinine Ratio 22.1 H, Glucose 87, Calcium 8.4, Phosphorus 2.8, Magnesium 2.2 Physical Exam Narrative Hypertensive, afebrile. Lying in bed in no acute distress watching TV. Alert andoriented Right upper extremity: Right forearm with improved erythema, edema. Induration noted with erythema extending up to medial bicep. No palpable fluid collection, no passive or expressive drainage 5/5 strength biceps, triceps, supervisor photocomposition, intrinsics, wrist flexion and extension. Sensation intact to light touch. Right dorsal hand by thenar webspace with healed skin tear Assessment & Plan Assessment/Plan (1) Cellulitis of right upper extremity: PLAN: No surgical interventions indicated or anticipated at this time. Continue broad spectrum antibiotics with coverage of feline bacteria. Continue elevation as long as swelling persists. OK to discharge plan from Plastics standpoint. We will follow up with the patient outpatient 08/24. Charges/Coding Visit Charges Inpatient E&M: 30911 Subs Hosp L2 08/22/25 0830 <Electronically signed by Anastacia LAZARO> Cosigner Signature (if applicable): CC: ~ Signed [facility] Work Phone: [phone]) 197-405610-14-2025 [facility]10-13-2025 Progress note Author Antwan Pitts [facility] Note Date/Time August 21, 2025 1 1:05am [facility] Medical Records Department [address] [place] [address] Progress Note - Hospitalist 08/21/25 1874 MR#: [id number] Acct: [id number] Name: ARSHADKENN D Rep #:[id number] : 1955 69 From: Antwan Pitts MD PCP: Dr. Jacob Jennings, DO Status:AD M IN [facility] Reason for Visit Chief Complaint: Right upper extremity cellulitis secondary to right hand cat bite Subjective Subjective Patient is a 69-year-old gentleman who presented from an outside ED with right upper extremity swelling following recent cat scratch/bite Objective Data Objective Data Vital Signs: Vital Signs Temp Pulse Resp BP Pulse Ox O2 Del Method 97.8 F 84 18 145/73 H 90 Room Air 08/21/25 05:10 08/21/25 07:14 08/21/25 07:14 08/21/25 05:10 08/21/25 07:14 08/21/25 07:14 Oxygen Delivery Method Room Air Weight: 81.7 kg Body Mass Index (BMI) 29.9 Intake & Output: Intake and Output for Last 24 Hours 08/19/25 08/20/25 08/21/25 23:59 23:59 23:59 Intake Total 100 / 100 500 / 500 100 / 100 Balance 100 / 100 500 / 500 100 / 100 Lab / Micro Data 08/20/25 04:25 08/20/25 04:25 Physical Exam Narrative GENERAL: cooperative HEENT: Atraumatic; normocephalic EYES; Anicteric, Normal Conjunctiva NECK; supple, normal thyroid, RESPIRATORY: Diminished to auscultation CARDIOVASCULAR: Regular S1 S2, GI: soft, normoactive bowel sounds, : No Renal angle tenderness; EXTREMITIES: An area of induration on the left forearm MUSCULOSKELETAL: no muscle wasting NEURO: Awake; no lateralizing signs. SKIN: No Rash PSYCH; Flat affect Assessment & Plan Assessment/Plan (1) Cellulitis of right upper extremity: PLAN: Plan Patient is a 69-year-old gentleman who presented from an outside ED with right upper extremity swelling following recent cat scratch/bite 1. Right upper extremity cellulitis ? Following a cat bite. Imaging studies demonstrated right hand and forearm large amount of soft tissue swelling with no gas no foreign bodies. Subsequent imaging with CT did not demonstrate any fluid collection. Consult was placed toplastic surgery patient management broad-spectrum antibiotic therapy with Unasyn 2. History of metastatic renal CA ? Status post left nephrectomy History of non-small cell lung CA ? Patient is on immunotherapy 4. Coronary artery disease ? With previous PCI 5. Hypertension ? Blood pressure controlled, home medications continued with dose adjustment as needed 6. History of previous VTE ? Patient is on systemic anticoagulation with apixaban 7. Dyslipidemia ?Patient is on statin therapy, continued at home dose 8. GERD ? On PPI 9. History of celiac disease ? Patient is on oral budesonide 10. DVT prophylaxis ? Patient already on systemic anticoagulation with apixaban Time spent in the patient's overall evaluation,decision-making process, review of diagnostic data, adjustment of management, discussion with other providers, nursing nursing and ancillary staff involved in patient's care documentation, 40 Minutes Charges/Coding Visit Charges Inpatient E&M: 35126 Subs Hosp L2 08/21/25 1105 <Electronically signed by Antwan Pitts MD> Cosigner Signature (if applicable): CC: ~ Signed [facility] Work Phone: 1(414) 894-185610-13-2025 Progress note Author Artemio Farrar [facility] Note Date/Time August 21, 2025 9 :48am [facility] Medical Records Department [address] [place] [address] Progress Note - Surgery 08/21/25 0947 MR#: [id number] Acct: [id number] Name: KENN ARSHAD Rep #:[id number] : 1955 69 From: Artemio Farrar MD PCP: Dr. Jacob Jennings, DO Status:AD M IN Location: [place] [address] Subjective Subjective Doing well Reports improved pain and complaince with rest and elevation of the RUE Objective Data Objective Data Vital Signs: Vital Signs Temp Pulse Resp BP Pulse Ox O2 Del Method 97.8 F 84 18 145/73 H 90 Room Air 08/21/25 05:10 08/21/25 07:14 08/21/25 07:14 08/21/25 05:10 08/21/25 07:14 08/21/25 07:14 Oxygen Delivery Method Room Air Weight: 180 lb 1.883 oz Body Mass Index (BMI) 29.9 Intake & Output: Intake and Output for Last 24 Hours 08/19/25 08/20/25 08/21/25 23:59 23:59 23:59 Intake Total 100 / 100 500 / 500 100 / 100 Balance 100 / 100 500 / 500 100 / 100 Lab / Micro Data 08/20/25 04:25 08/20/25 04:25 Physical Exam Narrative RIGHT Upper Extremity Inspection: some blisters. Palpation: no crepitus. No streaking erythema. No fluid collections. TTP on thedorsum of the forearm is much improved today (less). No pain with axial loading of the wrist or finger joints. Less swelling. Motor: Able to bend and extend all MP, PIP, and DIP joints. Able to make a fist. Sensory: Intact to light touch on the radial and ulnar borders. Vascular: Finger tips are warm and well perfused with <2 second capillary refill. Assessment & Plan Assessment/Plan (1) Cellulitis of right upper extremity: PLAN: Improving Continue IV antibiotics and rest/elevation 08/21/25 0948 <Electronically signed by Artemio Farrar MD> Cosigner Signature (if applicable): CC: ~ Signed [facility] Work Phone: 1(610) 515-397810-12-2025 Progress note Author Emmanuel Kaiser [facility] Note Date/Time August 20, 2025 9 :20am [facility] Medical Records Department [address] [place] [address] Progress Note - Hospitalist 08/20/25 0732 MR#: [id number] Acct: [id number] Name: ARSHADKENN D Rep #:[id number] : 1955 69 From: Emmanuel Nava PCP: Dr. Jacob Jennings, DO Status:AD IN Location: [place] [address] Reason for Visit Chief Complaint: Right upper extremity cellulitis secondary to right hand cat bite Objective Data Objective Data Vital Signs: Vital Signs Temp Pulse Resp BP Pulse Ox O2 Del Method 98.2 F 77 16 136/61 H 92 Room Air 08/20/25 03:00 08/20/25 03:00 08/20/25 03:00 08/20/25 03:00 08/20/25 03:00 08/20/25 03:00 Oxygen Delivery Method Room Air Weight: 180 lb 1.883 oz Body Mass Index (BMI) 29.9 Intake & Output: Intake and Output for Last 24 Hours 08/18/25 08/19/25 08/20/25 23:59 23:59 23:59 Intake Total 100 / 100 200 / 200 Balance 100 / 100 200 / 200 Lab / Micro Data 08/20/25 04:25 08/20/25 04:25 Labs: Laboratory Results - last 24 hr 08/20/25 04:25: WBC 8.6, RBC 4.50 L, Hgb 11.1 L, Hct 33.7 L, MCV 74.9 L, MCH 24.7 L, MCHC 32.9, RDW Std Deviation 45.1 H, RDW Coeff of Kailey 16.9 H, Plt Count 144 L, MPV 9.1, Immature Gran % (Auto) 1.100 H, Neut % (Auto) 80.9 H, Lymph % (Auto) 10.5 L, [place] % (Auto) 6.9, Eos % (Auto) 0.4, Baso % (Auto) 0.2, Absolute Neuts (auto) 6.9, Absolute Lymphs (auto) 0.90, Nucleated RBC % 0, Sodium 139, Potassium 3.8, Chloride 107, Carbon Dioxide 21.3, Anion Gap 11, BUN 15, Creatinine 1.02, Estim Creat Clear Calc 65.37, Est GFR (MDRD) Non-Af 79, BUN/Creatinine Ratio 14.8, Glucose 90, Calcium 8.3 Radiography Diagnostic Testing: Radiology Impression Upper Extremity CT 08/19/25 19:59 IMPRESSION: Diffuse soft tissue edema and swelling in the forearm, wrist and hand, probably cellulitis. No fluid collection or drainable abscess formation is seen. No CT evidence of gas-forming infection or osteomyelitis. Reading Location: [place] [address] Physical Exam Narrative No fever. Cat bite on right hand on dorsal aspect. 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 Follows [facility], Dr. Angela Rodriguez. Seen and examined General: Alert, Oriented x3, Cooperative HEENT: Atraumatic, PERRLA, EOMI, Normocephalic. Oral: No Gingival or Mucosal Lesions/ Ulcerations Neck: Supple, No JVD, Negative Carotid Bruits Chest wall/Lungs: Air entry diminished in bilateral lung bases. Right lung surgical scar posteriorly. No crepitation/rhonchi Cardiovascular: Regular rate and rhythm, systolic murmur grade 4 radiation to carotid Abdomen: Bowel Sounds Present, Soft, Non Tender, Non-Distended : No dysuria. No renal angle tenderness. No suprapubic tenderness. Extremities: No edema, Capillary Refill Less than 3 Seconds Skin: Small superficial cat bite ulcer on the dorsum of right medial aspect of hand. Swelling of right forearm with big blister. Baseline color of both forearms are changed/discolored because of Keytruda Musculoskeletal: ROM intact. Tenderness swelling mild induration due to right forearm cellulitis Neurological: Cranial nerves II-XII grossly intact, DTR 2+/4. No acute focal neurological deficit. Psych/Mental Status: Normal Affect, Appropriate. Assessment & Plan Assessment/Plan (1) Cellulitis of right upper extremity: PLAN: Plan Patient is a 69-year-old male who presented [facility] on 08/19/2025 as a transfer from outside ED for right upper extremity cellulitis secondary to recent right hand cat bite that happened 2 days ago before admission 1. Right upper extremity cellulitis with blister secondary to right hand, dorsal first webspace cat bite: Patient is being admitted in PCU. Sepsis was ruled out. The patient had mild leukocytosis with right upper extremity cellulitis but lactate was normal and he was hemodynamically stable, did not meet sepsis criteria. X- ray right hand and forearm showed large amount of soft tissue swelling with no gas noted, no foreign bodies noted. CRP 54, ESR 29. 08/20:CT right upper extremity was done which did not show any collection. Shows features of cellulitis with diffuse soft tissue swelling of right forearm wrist and hand without any collection. Superficial blister present on dorsal aspect of right forearm. Plan: IV antibiotic, Unasyn to continue. Right hand elevation, no concern for rabies because cat was his pet. Discussed with Dr. Farrar. No crepitus. Plastic surgeon consulted for 2. History of metastatic renal cell carcinoma s/p left nephrectomy and non-small cell lung cancer on immunotherapy ? Follows with oncology, last office note on 08/16, the note reviewed.. Patient has remained stable on Keytruda infusions every 21 days for some time and is undergoing active monitoring. No inpatient needs, continue outpatient follow-up. Chronic medical conditions: ? History of VTE: Continue home Eliquis 2.5 mg twice daily per oncology recommendations. As per the oncology note he should take twice daily but was taking once daily. ? History of CAD with stenting, hypertension, hyperlipidemia: Mildly hypertensive in the 130 systolic on admit. Given infection above, okay to continue home Coreg but will hold home hydralazine and Motifene for now, restartas able. Continue home statin. ? GERD: Continue home PPI. ? Celiac disease: Continue home oral budesonide. DVT prophylaxis: Not indicated, on Eliquis CODE STATUS: DNR-CCA, DNI Clinical Impression(s) from Imaging Studies Upper Extremity CT 08/19/25 19:59 IMPRESSION: Diffuse soft tissue edema and swelling in the forearm, wrist and hand, probably cellulitis. No fluid collection or drainable abscess formation is seen. No CT evidence of gas-forming infection or osteomyelitis. Reading Location: [place] [address] Charges/Coding Visit Charges Inpatient E&M: 04926 Subs Hosp L2 08/20/25 0920 <Electronically signed by Emmanuel Kaiser MD> Cosigner Signature (if applicable): CC: ~ Signed [facility] Work Phone: 1([phone]) 203-582710-12-2025 Consult note Author Artemio Farrar [facility] Note Date/Time August 20, 2025 8 :33am [facility] Medical Records Department [address] [place] [address] Consultation - Surgical 08/20/25819 MR#: [id number] Acct: [id number] Name: KENN ARSHAD Rep #:[id number] : 1955 69 From: Artemio Farrar MD PCP: Dr. Jacob Jennings, DO Status:AD M IN Location: [facility] [id number] Assessment & Plan Assessment/Plan (1) Cellulitis of right upper extremity: PLAN: Plastic surgery will follow Continue rest and elevation of the right upper extremity (blue arm elevator) Patient with cellulitis (no fluid collections) Continue antibiotics HPI Consult Data Date of Consult: 08/20/25 HPI Narrative HPI Narrative: KENN ARSHAD, is a 69 M who presents with right upper extremity cellulitis after a forearm cat bite (dorsum) and dorsal first webspace cat bite. These bites occurred two days ago. He presented to the ED last night and a CT scan didnot demonstrate any fluid collections. These cats were his house cats (no concerns for rabies). Patient is on Keytruda for metastatic cancer (renal primary). [facility] Medical History MRSA (methicillin resistant staph aureus) culture positive Acute infective gastroenteritis COPD exacerbation History of steroid therapy Low iron Seizures Shortness of breath on exertion History of pain when walking History of edema History of echocardiogram Cardiology follow-up encounter Cervical spinal cord injury Cervical stenosis of spine Numbness in right leg RUE numbness Diarrhea Hypokalemia Duodenal ulcer Anemia Diabetes mellitus, type 2 Hyperglycemia Hyponatremia Thrombocytopenia Pulmonary emboli COPD (chronic obstructive pulmonary disease) Imbalance Brain metastasis Pneumonia Sinus congestion Hx of radiation therapy Brain metastasis Frequent headaches Epistaxis Contact with or suspected exposure to other viral communicable disease Iron deficiency anemia due to chronic blood loss Encounter for immunotherapy Encounter for immunotherapy COVID-19 Nonrheumatic aortic (valve) stenosis with insufficiency Elevated troponin (05/15/21) Encephalopathy (05/15/21) Seizure (05/15/21) Metastatic renal cell carcinoma to lung Dyspnea Metastasis to adrenal gland Port-A-Cath in place Atherosclerotic heart disease of [place] coronary artery without angina pectoris Hyperlipidemia Wears glasses Wears dentures Gastric reflux Former smoker History of primary malignant neoplasm of left kidney 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 Skin cancer Abnormal colonoscopy Essential (primary) hypertension COPD (chronic obstructive pulmonary disease) Adenocarcinoma of right lung Home Medications ?Medication ?Instructions ?Recorded ?Last Taken ?Type rosuvastatin 40 mg tablet (Crestor) 40 mg PO QHS YING STEROL 08/18/18 08/18/25 History carvedilol 25 mg tablet 25 mg PO BID blood pressure 04/30/21 08/19/25 08:00 History hydralazine 50 mg tablet 50 mg PO BID blood pressure 05/31/21 08/19/25 08:00 History amlodipine 10 mg tablet 10 mg PO DAILY #90 tabs 08/0908/19/25 Rx pembrolizumab 25 mg/mL intravenous 200 mg IV Q21D Kidn ey cancer 12/14/24 08/16/25 History solution (Keytruda) fluticasone fur. 100 mcg-umeclid 1 inh inhalation QDAY #60 ea 06/09/25 Unknown Rx 62.5 mcg-vilant 25 mcg inhalat.powder (Trelegy Ellipta) ipratropium 0.5 mg-albuterol 3 mg 3 ml inhalation Q4H PRN shortness 06/09/25 08/18/25 Rx (2.5 mg base)/3 mL nebulization of breath or wheezing #180 mL soln triamcinolone acetonide 0.1 % 1 applic topical DAILY i tching of 06/09/25 08/18/25 History topical cream legs budesonide 3 mg 6 mg PO QDAY ciliac disease 08/04/25 08/19/25 History capsule,delayed,extended release apixaban 5 mg tablet (Eliquis) 2.5 mg PO DAILY 5 08/19/25 History omeprazole 20 mg capsule,delayed 20 mg PO DAILY Gastri c burning 08/19/25 08/18/25 History release Allergy/AdvReac Type Severity Reaction Status Date / Time No Known Allergies Allergy Verified 08/16/25 11:29 Family History Sister Diabetes CAD (coronary artery disease) Mother CVA (cerebral vascular accident) CAD (coronary artery disease) Lung cancer Father CAD (coronary artery disease) Brother CAD (coronary artery disease) Surgical History H/O cervical discectomy History of cataract surgery History of lobectomy of lung History of nephrectomy, left History of coronary angioplasty (01/05/04) History of coronary artery stent placement (07/17/03) Social History household members: spouse Smoking Status: Former smoker Tobacco: How many years used: 40 second hand exposure: No alcohol intake: current alcohol intake frequency: a few times a month Alcohol type: beer substance use type: does not use seatbelt use: always do you feel safe at home: Yes Physical Exam Narrative RIGHT Upper Extremity Inspection: some blisters. Palpation: no crepitus. No streaking erythema. No fluid collections. TTP on thedorsum of the forearm. No pain with axial loading of the wrist or finger joints. Motor: Able to bend and extend all MP, PIP, and DIP joints. Able to make a fist. Sensory: Intact to light touch on the radial and ulnar borders. Vascular: Finger tips are warm and well perfused with <2 second capillary refill. Lab / Micro Data 08/20/25 04:25 08/20/25 04:25 Labs: Laboratory Results - last 24 hr 08/20/25 04:25: WBC 8.6, RBC 4.50 L, Hgb 11.1 L, Hct 33.7 L, MCV 74.9 L, MCH 24.7 L, MCHC 32.9, RDW Std Deviation 45.1 H, RDW Coeff of Kailey 16.9 H, Plt Count 144 L, MPV 9.1, Immature Gran % (Auto) 1.100 H, Neut % (Auto) 80.9 H, Lymph % (Auto) 10.5 L, [place] % (Auto) 6.9, Eos % (Auto) 0.4, Baso % (Auto) 0.2, Absolute Neuts (auto) 6.9, Absolute Lymphs (auto) 0.90, Nucleated RBC % 0, Sodium 139, Potassium 3.8, Chloride 107, Carbon Dioxide 21.3, Anion Gap 11, BUN 15, Creatinine 1.02, Estim Creat Clear Calc 65.37, Est GFR (MDRD) Non-Af 79, BUN/Creatinine Ratio 14.8, Glucose 90, Calcium 8.3 Imaging Radiology Impression Upper Extremity CT 08/19/25 19:59 IMPRESSION: Diffuse soft tissue edema and swelling in the forearm, wrist and hand, probably cellulitis. No fluid collection or drainable abscess formation is seen. No CT evidence of gas-forming infection or osteomyelitis. Reading [facility] [address] Charges/Coding Multi Select Codes Visit Charges Office Visit/Consults: 15930 IP Consult L2 [place] 20146 IP Consult L3 08/20/25 0833 <Electronically signed by Artemio Farrar MD> Cosigner Signature (if applicable): CC: Dr. Jacob Jennings, DO~ Signed [facility] Work Phone: 1(786) 624-511110-12-2025 Radiology [facility] History and physical note Author Chris Medina [facility] Note Date/Time August 19, 2025 9 :15pm [facility] Medical Records Department [address] [place] [address] H&P Exam - Hospitalist 08/19/251951 MR#: [id number] Acct: [id number] Name: KENN ARSHAD Rep #:[id number] : 1955 69 From: Chris dee DO PCP: Dr. Jacob Jennings, DO Status:AD M IN Location: [facility] [id number] HPI - General General Date of Admission: 08/19/25 Date of Service: 08/19/25 Chief Complaint: Right upper extremity cellulitis secondary to right hand cat bite HPI Narrative KENN ARSHAD, is a 69 M who presented to [facility] on 08/19/2025 as a transfer from [place] ED for right upper extremity cellulitis secondary to recent right hand cat bite. Medical history significant for metastatic renal cancer that has been stable on Keytruda therapy, non-small celllung cancer s/p RLL resection, DVT/PE on Eliquis, CAD with stenting, hypertension, hyperlipidemia and GERD. Patient lives at home with his , hasfairly good functional status at baseline. He follows with oncology here and saw them in the office on 08/16. Was noted that patient has remained stable on Keytruda and plan was to continue monitoring. He does have a history of an isolated brain metastatic lesion s/p SBRT and has since followed with MRI brain scans. He had an MRI brain done at [facility] after his office visit on 08/16 but has not gotten read yet. No neurologic symptoms noted. Patient has a pet cat and was bitten on the right hand by the cat on 08/18. Notes he has been bit before without any significant issues. However, he developed fairly rapid swelling in his hand and up into his forearm along with erythema and tenderness to palpation, so he went to the [place] ED for further evaluation. [facility] records reviewed. In the ED there was found to have a cat bite already sealed shut on the right hand at the MCP joint of the second digit with cellulitis spreading proximally into the right hand, wrist and up to the anterior and posterior forearm. He also had a blister formed which his ruptured that is now deflated; no purulent or bloody drainage noted from this blister. No foreign bodies noted. No abscess to drain noted. Workup there was as follows. CBC with WBC count 13.7 (86% neutrophils), hemoglobin 12.2, platelets 155. BMP sodium 139, potassium 3.8, chloride 109, bicarb 19, creatinine 1.19, BUN 19, glucose 107. CRP 54, ESR 29. Lactate 1.3. X-ray right hand and forearm showed large amount of soft tissue swelling with no gas noted, no foreign bodies noted. ED physician noted that CT scan was considered to rule out necrotizing soft tissue infection but given patient was not hypotensive, tachycardic, not an alcoholic, diabetic and his NSTI score was 0, there was no need for a CT scan there. He was given a dose of IV Unasyn and IV morphine there and then transferred here for further evaluation. I saw the patient at bedside shortly after he arrived here, was present. Patient was mildly fatigued appearing but otherwise sitting back comfortably in bed, conversing normally, in no acute distress. He was alert and oriented x 3. He reported mild right hand and forearm pain currently and noted that the morphine seems like it may be wearing off. He denies any fevers or chills. Denies any other acute concerns currently. [facility] Medical History MRSA (methicillin resistant staph aureus) culture positive Acute infective gastroenteritis COPD exacerbation History of steroid therapy Low iron Seizures Shortness of breath on exertion History of pain when walking History of edema History of echocardiogram Cardiology follow-up encounter Cervical spinal cord injury Cervical stenosis of spine Numbness in right leg RUE numbness Diarrhea Hypokalemia Duodenal ulcer Anemia Diabetes mellitus, type 2 Hyperglycemia Hyponatremia Thrombocytopenia Pulmonary emboli COPD (chronic obstructive pulmonary disease) Imbalance Brain metastasis Pneumonia Sinus congestion Hx of radiation therapy Brain metastasis Frequent headaches Epistaxis Contact with or suspected exposure to other viral communicable disease Iron deficiency anemia due to chronic blood loss Encounter for immunotherapy Encounter for immunotherapy COVID-19 Nonrheumatic aortic (valve) stenosis with insufficiency Elevated troponin (05/15/21) Encephalopathy (05/15/21) Seizure (05/15/21) Metastatic renal cell carcinoma to lung Dyspnea Metastasis to adrenal gland Port-A-Cath in place Atherosclerotic heart disease of [place] coronary artery without angina pectoris Hyperlipidemia Wears glasses Wears dentures Gastric reflux Former smoker History of primary malignant neoplasm of left kidney 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 Skin cancer Abnormal colonoscopy Essential (primary) hypertension COPD (chronic obstructive pulmonary disease) Adenocarcinoma of right lung Home Medications ?Medication ?Instructions ?Recorded ?Last Taken ?Type rosuvastatin 40 mg tablet (Crestor) 40 mg PO QHS YING STEROL 08/18/18 08/18/25 History carvedilol 25 mg tablet 25 mg PO BID blood pressure 04/30/21 08/19/25 08:00 History hydralazine 50 mg tablet 50 mg PO BID blood pressure 05/31/21 08/19/25 08:00 History amlodipine 10 mg tablet 10 mg PO DAILY #90 tabs 08/0908/19/25 Rx pembrolizumab 25 mg/mL intravenous 200 mg IV Q21D Kidn ey cancer 12/14/24 08/16/25 History solution (Keytruda) fluticasone fur. 100 mcg-umeclid 1 inh inhalation QDAY #60 ea 06/09/25 Unknown Rx 62.5 mcg-vilant 25 mcg inhalat.powder (Trelegy Ellipta) ipratropium 0.5 mg-albuterol 3 mg 3 ml inhalation Q4H PRN shortness 06/09/25 08/18/25 Rx (2.5 mg base)/3 mL nebulization of breath or wheezing #180 mL soln triamcinolone acetonide 0.1 % 1 applic topical DAILY i tching of 06/09/25 08/18/25 History topical cream legs budesonide 3 mg 6 mg PO QDAY ciliac disease 08/04/25 08/19/25 History capsule,delayed,extended release apixaban 5 mg tablet (Eliquis) 2.5 mg PO DAILY 5 08/19/25 History omeprazole 20 mg capsule,delayed 20 mg PO DAILY Gastri c burning 08/19/25 08/18/25 History release Allergy/AdvReac Type Severity Reaction Status Date / Time No Known Allergies Allergy Verified 08/16/25 11:29 Family History Sister Diabetes CAD (coronary artery disease) Mother CVA (cerebral vascular accident) CAD (coronary artery disease) Lung cancer Father CAD (coronary artery disease) Brother CAD (coronary artery disease) Surgical History H/O cervical discectomy History of cataract surgery History of lobectomy of lung History of nephrectomy, left History of coronary angioplasty (01/05/04) History of coronary artery stent placement (07/17/03) Social History household members: spouse Smoking Status: Former smoker Tobacco: How many years used: 40 second hand exposure: No alcohol intake: current alcohol intake frequency: a few times a month Alcohol type: beer substance use type: does not use seatbelt use: always do you feel safe at home: Yes ROS Constitutional Constitutional: Reports fatigue; Denies chills, fever(s) or weakness Cardiovascular Cardiovascular: Denies chest pain Respiratory/Chest Respiratory/Chest: Denies shortness of breath at rest Gastrointestinal Gastrointestinal: Denies abdominal pain Musculoskeletal Musculoskeletal: Reports other Details: Right hand and forearm pain, erythema and swelling ; Denies arthralgias or myalgias Neurologic Neurologic: Denies dizziness, focal weakness or headache(s) Vital Signs Vital Signs Vital Signs: Weight Weight: 81.7 kg Body Mass Index (BMI) 29.9 Physical Exam Const alert, oriented x3, no apparent distress and average body habitus Constitutional Narrative: Elderly male, class I obesity, mildly fatigued appearing but otherwise sitting back comfortably in bed, conversing normally, in no acute distress. General Appearance: cooperative and comfortable HEENT normocephalic, head/scalp atraumatic, hearing grossly normal bilaterally, nasal mucous membranes and turbinates normal and moist oral mucous membranes Eyes PERRL, EOMs intact bilaterally and conjunctivae normal Neck full ROM Chest inspection of chest normal Resp normal respiratory effort, normal air movement, no use of accessory muscles and clear to auscultation bilaterally Cardio regular rate, regular rhythm, no murmurs and peripheral pulses 2+ throughout GI normal to inspection, nondistended, normoactive bowel sounds, soft to palpation,non-tender and non-distended Back/Spine normal ROM Extremity Extremity Narrative: Right hand with small cat bite noted at the base of the MCP joint of the second digit. Moderate erythema with swelling noted in the hand, wrist and up into theupper forearm below the elbow. No crepitus on palpation. Mild warmth and tenderness to the touch. Psych mental status grossly normal Assessment & Plan Assessment/Plan (1) Cellulitis of right upper extremity: PLAN: Plan Patient is a 69-year-old male who presented [facility] on 08/19/2025 as a transfer from outside ED for right upper extremity cellulitis secondary to recent right hand cat bite. 1. Right upper extremity cellulitis secondary to right hand cat bite ? Admit under inpatient status to PCU. ED physician at outside hospital had concern for sepsis so patient was admitted to PCU here. Patient had mild leukocytosis with right upper extremity cellulitis but lactate was normal and hewas hemodynamically stable, did not meet sepsis criteria. X-ray right hand and forearm showed large amount of soft tissue swelling with no gas noted, no foreign bodies noted. CRP 54, ESR 29. Given the rapid significant swelling noted after cat bite only 1 day ago, will obtain CT right upper extremity here for further evaluation. Will treat with IV Unasyn. Monitor closely. 2. History of metastatic renal cell carcinoma s/p left nephrectomy and non-small cell lung cancer on immunotherapy ? Follows with oncology, last office note on 08/16, see for further details. Patient has remained stable on Keytruda infusions every 21 days for some time and is undergoing active monitoring. No inpatient needs, continue outpatient follow-up. Chronic medical conditions: ? History of VTE: Continue home Eliquis 2.5 mg twice daily per oncology recommendations. Notably patient stated on admission that he typically only takes this once daily, though oncology clearly notes that he should be taking ittwice daily. They did note that he has had some issues with compliance with Eliquis in the past. ? History of CAD with stenting, hypertension, hyperlipidemia: Mildly hypertensive in the 130 systolic on admit. Given infection above, okay to continue home Coreg but will hold home hydralazine and Motifene for now, restartas able. Continue home statin. ? GERD: Continue home PPI. ? Celiac disease: Continue home oral budesonide. DVT prophylaxis: Not indicated, on Eliquis CODE STATUS: DNR-CCA, DNI Expected disposition: Home, 2 to 3 days Total clinical time spent by myself addressing the patient's medical issues, reviewing all the data, and collaborating with patient's care team: 79 minutes. Charges/Coding Visit Charges Inpatient E&M: 89231 Init Hosp L3 08/19/252114 <Electronically signed by Chris Medina DO> Cosigner Signature (if applicable): CC: Dr. Chris Medina DO; Dr. Jacob Jennings DO~ Signed [facility] Work Phone: [phone] Emergency department Note* Marcy Taylor RN - 08/19/2025 6:05 PM EDT Stock[place]ette placed over pts left ac IV site. Transfer paperwork sent with pt and . to drive pt to [facility]. [id number] Emergency department Note* Marcy Taylor RN - 08/19/2025 6:05 PM EDT Stockinette placed over pts left ac IV site. Transfer paperwork sent with pt and . to drive pt to [facility]. * Marcy Taylor RN - 08/19/2025 5:21 PM EDT Pt requesting to go to [facility] by private car, will drive. Dr. Birch in to speak withpt. * Marcy Taylor RN - 08/19/2025 5:[address] Birch speaking with [facility] hospitalist. * Marcy Taylor RN - 08/19/2025 4:43 PM EDT Applied bacitracin to right forearm area of blisters and redness, covered with nonstick pads and secured with roll gauze. * Marcy Taylor RN - 08/19/2025 4:42 PM EDT Call placed to [facility]. Spoke with lead refinery supervisor who states they do have beds and will have the hospitalist call back. * Tono Birch MD - 08/19/2025 3:30 PM EDT Images from the original note were not included. EMERGENCY DEPARTMENT ENCOUNTER Pt Name: Kenn Arshad Birthdate 1955 Date of evaluation: 08/19/2025 ED Provider: Tono Birch MD CHIEF COMPLAINT Chief Complaint Patient presents with Rash HISTORY OF PRESENT ILLNESS (Location/Symptom, Timing/Onset, Context/Setting, Quality, Duration, Modifying Factors, Severity) Note limiting factors. I wore appropriate PPE for the entirety of this encounter. HPI Kenn Arshad is a 69 y.o. who presents to the emergency department with a rapidly advancing right upper extremity cellulitis in an immunosuppressed state Patient has kidney cancer and is on Keytruda for this issue. He also has a history of lung cancer with brain metastases. He is neurologically completely normal. History of pulmonary embolism. Ex-smoker. Family history of coronary disease. Yesterday his cat which is an indoor cat vaccinated against rabies bit him on the right hand second digit at the MCP joint. Rapidly spreading cellulitis moving proximally up his hand and his wrist and all of his right forearm since then. It is hot to the touchit is erythematous and a bit stir formed on the anterior surface of the right forearm which his ruptured, this made the cellulitis bigger. He endorses a temperature of 101-0101 Fahrenheit at home. He took Tylenol just before he arrived so his temperature is 37 Celsius now. No numbness weaknessor paresthesias in the right upper extremity. He is immunosuppressed on the chemotherapy medicationfor his kidney cancer. There are no foreign bodies or tendons or cat teeth visible in the bite wound on the right posterior hand second digit. By comparison left arm left leg right leg are normal. Nochest pain palpitation shortness of breath or abdominal pain. Right arm is hot to the touch. Nursing Notes were reviewed. Limitations to history: None Outside historians: Family at bedside REVIEW OF SYSTEMS Review of Systems Pertinent positives and negatives as per HPI PAST MEDICAL HISTORY Medical History[1] SURGICAL HISTORY Surgical History[2] CURRENT MEDICATIONS Previous Medications AMLODIPINE (NORVASC) 10 MG TABLET Take 1 tablet (10 mg) by mouth daily. APIXABAN (ELIQUIS) 2.5 MG TABLET Take 1 tablet (2.5 mg) by mouth 2 times daily for 360 doses. CARVEDILOL (COREG) 25 MG TABLET TAKE 1 TABLET BY MOUTH TWICE A DAY WITH MEALS HYDRALAZINE (APRESOLINE) 50 MG TABLET TAKE 1 TABLET BY MOUTH TWICE A DAY IPRATROPIUM-ALBUTEROL (DUO-NEB) 0.5-2.5 MG/3 ML NEBULIZER SOLUTION Take 3 mL by nebulization three times daily. IPRATROPIUM-ALBUTEROL (DUO-NEB) 0.5-2.5 MG/3 ML NEBULIZER SOLUTION Take 3 mL by nebulization three times daily. NITROGLYCERIN (NITROSTAT) 0.[address] 1 tablet (0.4 mg) under the tongue every 5 minutesas needed for chest pain. OMEPRAZOLE (PRILOSEC) [address] CAPSULE TAKE 1 CAPSULE (20 MG) BY MOUTH DAILY NEEDED (REFLUX). PEMBROLIZUMAB (KEYTRUDA) 100 MG/4ML CHEMO INJECTION Infuse 200 mg into a venous catheter. PREDNISONE (DELTASONE) 10 MG TABLET 10 mg every other day. Takes 5 mg on opposite days ROSUVASTATIN (CRESTOR) 40 MG TABLET Take 1 tablet (40 mg) by mouth daily. ALLERGIES Patient has no known allergies. FAMILY HISTORY Family History[3] SOCIAL HISTORY Social History[4] PHYSICAL EXAM ED Triage Vitals [08/19/25 1537] Temp Heart Rate Resp BP 37 C (98.6 F) 91 16 117/64 SpO2 Temp Source Heart Rate Source Patient Position 95 % Oral -- -- BP Location FiO2 (%) -- -- Physical Exam General: WDWN adult in NAD. Non-toxic appearing HENT: Head NCAT, EOMI with no erythema, swelling or discharge. Oropharyngeal mucus membranes moist,pink, no exudate Neck: Full ROM, supple, no rigidity Cardio: RRR, nl s1 s2 no m/r/g, extremities warm, dry, well perfused, non- edematous, 2+ bilateral radial pulses, 2+ bilateral DP pulses. Less than 2- second capillary refill in all digits on the righthand Lungs: CTAB, no wheezes, rales, rhonchi, normal work of breathing Abdomen: Soft, NT, ND, non-rigid, BS x 4 normal MSK: Right elbow nontender to palpation and is not involved with the cellulitis. Full range of flexion extension supination pronation without pain. The right elbow joint is not erythematous or hot tothe touch there is no septic joint The right forearm compartment is hot to the touch and erythematous but is not indurated. Argues against DVT. No bony deformity. The right wrist is nontender to palpation, he still has full range of flexion extension adduction abduction of the right wrist, though he complains of pain in the right hand at the second MCP joint when he moves the right wrist The right hand is painful to palpation at the second digit at the MCP joint on the posterior side. If he fights through discomfort he can still flex and extend fully at the MCP joint and the PIP joint and the DIP joint on the right hand but it is painful to do so. By comparison digits 1, 3, 4, 5 onthe right hand are not involved Skin: There is a cat bite which has already sealed shut on the right hand second digit at the MCP joint. There is significant cellulitis in this area spreading proximally into the right hand and the right wrist on the posterior side and enveloping almost the entirety of the anterior and posterior forearm as well. On the anterior side of the right forearm a blister has formed which the has ruptured, the blister has now deflated there is no purulent or bloody drainage coming out of the blister. No obvious foreign bodies or tendons visible or cat teeth visible in the right hand cat bite wound. There is no laceration to suture. There is no abscess to drain. Neuro: Alert, oriented, mentating normally Normal 5/5 strength and normal sensation throughout the entirety of the right upper extremity. No sign of neurovascular compromise DIAGNOSTIC RESULTS RADIOLOGY (Per Emergency Physician): Interpretation per the Radiologist below, if available at the time of this note: XR hand 3+ views right (Results Pending) XR forearm 2 views right (Results Pending) LABS: Labs Reviewed BLOOD CULTURE BLOOD CULTURE CBC WITH AUTO DIFFERENTIAL BASIC METABOLIC PANEL SEDIMENTATION RATE, AUTOMATED C-REACTIVE PROTEIN LACTIC ACID WITH REFLEX All other labs were within normal range or not returned as of this dictation. EMERGENCY DEPARTMENT COURSE and DIFFERENTIAL DIAGNOSIS/MDM: Vitals: Vitals: 08/19/25 1536 08/19/25 1537 BP: 117/64 Pulse: 91 Resp: 16 Temp: 37 C (98.6 F) TempSrc: Oral SpO2: 95% Weight: 72.6 kg (160 lb) Height: 1.676 m (5' 6) Medications ampicillin-sulbactam (Unasyn) 3,000 mg in sodium chloride 0.9 % 100 mL IVPB (Mini-Bag Plus) (has noadministration in time range) Tdap (BoostRIX) vaccine 0.5 mL (has no administration in time range) bacitracin ointment (has no administration in time range) morphine injection 2 mg (has no administration in time range) ondansetron (Zofran) injection 4 mg (has no administration in time range) SCREENINGS 69-year-old male presents for right hand right wrist right forearm cellulitis after being bitten bya cat The patient is immunosuppressed on chemotherapy medication for his kidney cancer, so his immune system is not going to be able to fight this infection as well as it normally would be. He endorses a temperature of 100-0101 Fahrenheit at home, and this makes sense with his clinical presentation, thislooks like a rapidly advancing cellulitis. He needs blood cultures, lactic acid, IV Unasyn specifically since this is a cat bite. Cat is vaccinated against rabies so no rabies immunoglobulin or rabies vaccine are required at this time. Patient require hospitalization given his immune status and thefact that over 24 hours the cellulitis has gotten much worse. I do not trust him to manage this at home given his cancer history and how fast it is progressing. MEDICAL DECISION MAKING: I considered, but did not perform, additional testing such a chest CT, abdomen/pelvis or extremity CT, as well as admission or transfer to a higher level of care. I utilized an evidence-based risk rating tool (CMT) along with my training and experience to weigh the risk of discharge against the risks of further testing, imaging, or hospitalization. At this time, the risk of sepsis or NSTI is very low and most likely lower than the risk of additional testing/imaging or hospitalization (in the case of discharge home). [id number] SHARED DECISION MAKING: I discussed my risk assessment with the patient. The patient understands and consents to the risk of disposition/plan, as well as the risk of uncertainty in estimating outcomes. [id number] I did consider the possibility of a necrotizing soft tissue infection/NSTI, but the infection is not located in the groin, the patient is not hypotensive or tachycardic, he is not on dialysis or cirrhotic he is not an alcoholic and he is not diabetic. Therefore he has a [facility] NSTI CMT score of 0, therefore standard therapy is recommended, no indication for a CT of the right upper extremity at this time. PROCEDURES: Unless otherwise noted below, none Procedures Metabolic panel shows mild metabolic acidosis, good kidney function, glucose within normal limits Sodium potassium normal. Calcium minimally low at 8.6 No lactic acidosis Elevated white blood cell count at 13.7 K Unchanged anemia Normal platelet count ESR and CRP both elevated Combination of heart rate of 91 bpm and elevated lactic acid consistent with sepsis. X-ray right hand shows marked osteophyte at the third MCP joint which may be hemochromatosis or other more common etiologies. Large amount of soft tissue swelling. No acute fracture or dislocation demonstrated. No obvious bony cat teeth by my read. Interpreted by radiology and by me. X-ray right forearm shows volar forearm soft tissue swelling without radiopaque foreign body. No fracture or dislocation. Interpreted by radiology and by me. SEP- CORE MEASURE DATA SIRS Criteria Sepsis Criteria Severe Sepsis Criteria Septic Shock Criteria Must meet 2: [x] Temperature > 100.4 F (38 C) or < 96.8 F (36 C) [x] HR > 90 [] RR > 20 [x] WBC > 12 or < 4 or 10% bands Must be confirmed or suspected to move forward with diagnosis of sepsis. Must select at least one: [x] Bacterial Infection Confirmed or Suspected. [] Viral Infection Confirmed or Suspected. [] Fungal Infection Confirmed or Suspected. [] No infection present. Patient does not meet criteria for Sepsis. Must meet 1: [] Lactate > 2 or [] Signs of Organ Dysfunction: - SBP < 90 or MAP < 65 - Altered mental status - Creatinine > 2 or increased from baseline - Urine Output < 0.5 ml/kg/hr - Bilirubin > 2 - INR > 1.5 - Platelets < 100,000 - Acute Respiratory Failure as evidenced by new need for NIPPV or mechanical ventilation [x] No criteria met for Severe Sepsis. Must meet 1: [] Lactate = or > 4 or [] SBP < 90 or MAP < 65 for at least two readings in the first hour after fluid bolus administration [x] No criteria met for Septic Shock. No data found. Recent Labs 08/19/25 1611 WBC 13.7* LACTATE 1.3 CREATININE 1.19 PLT 155 Sepsis Identified at 1552 Fluid Resuscitation Rationale: Patient does not have a lactic acid above 4.0 and is not hypotensive. 30 mL/kg IV fluids not indicated at this time Infection Source: Skin or Soft Tissue Reassessment Exam: Not applicable. Patient does not have Septic Shock. Tono Birch MD On reassessment, patient's blood pressure is 117/64, he is not tachycardic but heart rate is hovering in the 90s. Remains afebrile. Normal mental status. Patient requested that he be admitted to [facility] because all of his chemotherapy happens a blister. [facility] transfer center contacted approximately [phone]. They will see if hospitalist service will accept patient. Since the patient is not in severe sepsis or septic shock and there is no neurovascularcompromise of the right upper extremity at this time, there is no indication for ICU admission or em ergent surgical consultation. Patient was accepted to Dr. Mahesh Medina's service at [facility]. Results of workup and plan of care explained to patient and his . They indicated understanding and agreement. They agree to inpatient admission to [facility]. Disposition: Inpatient admit [facility] Critical Care Attestation: The patient required critical care because the patient suffered sepsis. Critical care provided to the patient included: Lab review, multiple reassessments of patient, working with consultants, treating sepsis, updating and educating patient and family, documentation time. Critical care time does not include any procedures performed. I personally saw the patient and independently provided 40 minutes of non-concurrent critical care. CRITICAL CARE TIME FINAL IMPRESSION 1. Sepsis, due to unspecified organism, unspecified whether acute organ dysfunction present (HCC) 2. Cellulitis of right upper extremity 3. Cat bite, initial encounter 4. Immunocompromised state (HCC) 5. Malignant neoplasm of kidney, unspecified laterality (HCC) DISPOSITION Admit 08/19/2025 03:52:33 PM PATIENT REFERRED TO: No follow-up provider specified. DISCHARGE MEDICATIONS: New Prescriptions No medications on file (Comment: Please note this report has been produced using speech recognition software and may contain errors related to that system including errors in grammar, punctuation, and spelling, as well as words and phrases that may be inappropriate. 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 Chambers COPD (chronic obstructive pulmonary disease) ([facility]) 2020 PFTS mild Obst lung ds ([facility]) COVID-19 virus infection 10/2021 DDD (degenerative disc disease), cervical 02/2024 s/p ACF per [facility] [place] Essential hypertension 1994 Ex-smoker 03/2021 Family history of diabetes mellitus sister Gastric polyps 12/[address] Ramírez, [facility] also-erythematous duodenopathy H/O colonoscopy 02/2019 [facility]- small polyp- due 2023 History of colon polyps 2000 [facility] History of pulmonary embolism 04/2023 Eliquis began ? length of rx History of renal carcinoma 2005 Left Radical Nephrectomy per Dr. Tariq History of SCC (squamous cell carcinoma) of skin 2011 scalp - [facility] [employer] Hypercholesterolemia 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) 2022 / d/t Lung CA or recurrent Renal Cell CA PAD (peripheral artery disease) 07/2019 Rt > Lt, pt defering angiogram rec per Dr. 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 Sutherland, C3-5 , [facility] COLONOSCOPY 02/2019 Ahmed- small polyp- due 2023 COLONOSCOPY 2013 Ahmed CORONARY ANGIOPLASTY WITH STENT PLACEMENT 1992 EGD (HISTORICAL) 03/2025 Dr. Chambers- Celiac ds FLEXIBLE SIGMOIDOSCOPY 01/2025 Dr. Chambers- Keytruda induced colitis LUNG REMOVAL, PARTIAL Right 03/2021 VATS thoractomy NEPHRECTOMY Left 2006 [facility] OTHER SURGICAL HISTORY 02/2021 EBUS/ENB SKIN CANCER DESTRUCTION 2011 squamous cell per Brett-,scalp UPPER GASTROINTESTINAL ENDOSCOPY 12/2021 Dr. Ramírez- mild gastritis with small HH [3] Family History Problem Relation Name Age of Onset Coronary artery disease Mother 65 CABG Stroke Mother age 77 Lung cancer Mother Coronary artery disease Father age 50 [place] - smoker Coronary artery disease Sister Amairani CABG Diabetes Sister Amairani alive age 64 No Known Problems Sister Mariana No Known Problems Sister Lidia No Known Problems Sister Joanne No Known Problems Brother Moises Coronary artery disease Brother Kaiden age 47 [place] [4] Social History Socioeconomic History Marital status: Tobacco Use Smoking status: Former Current packs/day: 0.00 Average packs/day: 1.5 packs/day for 40.1 years (60.2 ttl pk-yrs) Types: Cigarettes Start date: 02/01/1981 Quit date: 03/12/2021 Years since quittin.4 Smokeless tobacco: Never Substance and Sexual Activity Alcohol use: Yes Alcohol/week: 14.0 standard drinks of alcohol Drug use: Never Social History Narrative to Haylie since 1985. One son Michael with Haylie. 2 stepsons, 5 GC. EX- SMOKER since 03/2021 No excessive ETOH. 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 Social Drivers of Health Financial Resource Strain: Low Risk (06/30/2022) Received from [facility] Overall Financial Resource Strain (CARDIA) Difficulty of Paying Living Expenses: Not hard at all Food Insecurity: No Food Insecurity (06/30/2022) Received from [facility] Hunger Vital Sign Worried About Running Out of Food in the Last Year: Never true Ran Out of Food in the Last Year: Never true Transportation Needs: No Transportation Needs (06/13/2019) Received from [facility] PRAPARE - Transportation Lack of Transportation (Medical): No Lack of Transportation (Non-Medical): No Physical Activity: Inactive (06/13/2019) Received from [facility] Exercise Vital Sign Days of Exercise per Week: 0 days Minutes of Exercise per Session: 0 min Stress: No Stress Concern Present (06/13/2019) Received from [facility] [place] of Occupational [facility] - Occupational Stress Questionnaire Feeling of Stress : Not at all Social Connections: Moderately Isolated (06/13/2019) Received from [facility] Social Connection and Isolation Panel [NHANES] Frequency of Communication with Friends and Family: Twice a week Frequency of Social Gatherings with Friends and Family: Once a week Attends Hindu Services: Never Active Member of Clubs or Organizations: No Attends Club or Organization Meetings: Never Marital Status: Tono Birch MD 08/19/25 171 * Marcy Taylor RN - 08/19/2025 3:30 PM EDT Pt ambulatory to ED4 with with c/o rash and blisters to right forearm. Pt was mowing yesterdaythen noted this either last night or this morning. He states it is not poison kate. He rates pain 5/10. Pt took Tylenol at 1300. He initially had one blister this morning but his popped it so now it is triple the size. documented in this [facility]10-11-2025 Emergency department Note* Marcy Taylro RN - 08/19/2025 5:21 PM EDT Pt requesting to go to [facility] by private car, will drive. Dr. Birch in to speak withpt. [facility] [id number] Emergency department Note* Marcy Taylor RN - 08/19/2025 5:[address] Birch speaking with [facility] hospitalist. [id number] Emergency department Note* Marcy Taylor RN - 08/19/2025 4:43 PM EDT Applied bacitracin to right forearm area of blisters and redness, covered with nonstick pads and secured with roll gauze. [id number] Emergency department Note* Marcy Taylor RN - 08/19/2025 4:42 PM EDT Call placed to [facility]. Spoke with lead refinery supervisor who states they do have beds and will have the hospitalist call back. [id number] Emergency department Triage note* Marcy Taylor RN - 08/19/2025 3:30 PM EDT Pt ambulatory to ED4 with with c/o rash and blisters to right forearm. Pt was mowing yesterdaythen noted this either last night or this morning. He states it is not poison kate. He rates pain 03/18. Pt took Tylenol at 1300. He initially had one blister this morning but his popped it so now it is triple the size. [id number] Physician Emergency department Note* Tono Birch MD - 08/19/2025 3:30 PM EDT Images from the original note were not included. EMERGENCY DEPARTMENT ENCOUNTER Pt Name: Kenn Arshad Birthdate 1955 Date of evaluation: 08/19/2025 ED Provider: Tono Birch MD CHIEF COMPLAINT Chief Complaint Patient presents with Rash HISTORY OF PRESENT ILLNESS (Location/Symptom, Timing/Onset, Context/Setting, Quality, Duration, Modifying Factors, Severity) Note limiting factors. I wore appropriate PPE for the entirety of this encounter. HPI Kenn Arshad is a 69 y.o. who presents to the emergency department with a rapidly advancing right upper extremity cellulitis in an immunosuppressed state Patient has kidney cancer and is on Keytruda for this issue. He also has a history of lung cancer with brain metastases. He is neurologically completely normal. History of pulmonary embolism. Ex-smoker. Family history of coronary disease. Yesterday his cat which is an indoor cat vaccinated against rabies bit him on the right hand second digit at the MCP joint. Rapidly spreading cellulitis moving proximally up his hand and his wrist and all of his right forearm since then. It is hot to the touchit is erythematous and a bit stir formed on the anterior surface of the right forearm which his ruptured, this made the cellulitis bigger. He endorses a temperature of 101-0101 Fahrenheit at home. He took Tylenol just before he arrived so his temperature is 37 Celsius now. No numbness weaknessor paresthesias in the right upper extremity. He is immunosuppressed on the chemotherapy medicationfor his kidney cancer. There are no foreign bodies or tendons or cat teeth visible in the bite wound on the right posterior hand second digit. By comparison left arm left leg right leg are normal. Nochest pain palpitation shortness of breath or abdominal pain. Right arm is hot to the touch. Nursing Notes were reviewed. Limitations to history: None Outside historians: Family at bedside REVIEW OF SYSTEMS Review of Systems Pertinent positives and negatives as per HPI PAST MEDICAL HISTORY Medical History[1] SURGICAL HISTORY Surgical History[2] CURRENT MEDICATIONS Previous Medications AMLODIPINE (NORVASC) 10 MG TABLET Take 1 tablet (10 mg) by mouth daily. APIXABAN (ELIQUIS) 2.5 MG TABLET Take 1 tablet (2.5 mg) by mouth 2 times daily for 360 doses. CARVEDILOL (COREG) 25 MG TABLET TAKE 1 TABLET BY MOUTH TWICE A DAY WITH MEALS HYDRALAZINE (APRESOLINE) 50 MG TABLET TAKE 1 TABLET BY MOUTH TWICE A DAY IPRATROPIUM-ALBUTEROL (DUO-NEB) 0.5-2.5 MG/3 ML NEBULIZER SOLUTION Take 3 mL by nebulization three times daily. IPRATROPIUM-ALBUTEROL (DUO-NEB) 0.5-2.5 MG/3 ML NEBULIZER SOLUTION Take 3 mL by nebulization three times daily. NITROGLYCERIN (NITROSTAT) 0.[address] 1 tablet (0.4 mg) under the tongue every 5 minutesas needed for chest pain. OMEPRAZOLE (PRILOSEC) [address] CAPSULE TAKE 1 CAPSULE (20 MG) BY MOUTH DAILY NEEDED (REFLUX). PEMBROLIZUMAB (KEYTRUDA) 100 MG/4ML CHEMO INJECTION Infuse 200 mg into a venous catheter. PREDNISONE (DELTASONE) 10 MG TABLET 10 mg every other day. Takes 5 mg on opposite days ROSUVASTATIN (CRESTOR) 40 MG TABLET Take 1 tablet (40 mg) by mouth daily. ALLERGIES Patient has no known allergies. FAMILY HISTORY Family History[3] SOCIAL HISTORY Social History[4] PHYSICAL EXAM ED Triage Vitals [08/19/25 1537] Temp Heart Rate Resp BP 37 C (98.6 F) 91 16 117/64 SpO2 Temp Source Heart Rate Source Patient Position 95 % Oral -- -- BP Location FiO2 (%) -- -- Physical Exam General: WDWN adult in NAD. Non-toxic appearing HENT: Head NCAT, EOMI with no erythema, swelling or discharge. Oropharyngeal mucus membranes moist,pink, no exudate Neck: Full ROM, supple, no rigidity Cardio: RRR, nl s1 s2 no m/r/g, extremities warm, dry, well perfused, non- edematous, 2+ bilateral radial pulses, 2+ bilateral DP pulses. Less than 2- second capillary refill in all digits on the righthand Lungs: CTAB, no wheezes, rales, rhonchi, normal work of breathing Abdomen: Soft, NT, ND, non-rigid, BS x 4 normal MSK: Right elbow nontender to palpation and is not involved with the cellulitis. Full range of flexion extension supination pronation without pain. The right elbow joint is not erythematous or hot tothe touch there is no septic joint The right forearm compartment is hot to the touch and erythematous but is not indurated. Argues against DVT. No bony deformity. The right wrist is nontender to palpation, he still has full range of flexion extension adduction abduction of the right wrist, though he complains of pain in the right hand at the second MCP joint when he moves the right wrist The right hand is painful to palpation at the second digit at the MCP joint on the posterior side. If he fights through discomfort he can still flex and extend fully at the MCP joint and the PIP joint and the DIP joint on the right hand but it is painful to do so. By comparison digits 1, 3, 4, 5 onthe right hand are not involved Skin: There is a cat bite which has already sealed shut on the right hand second digit at the MCP joint. There is significant cellulitis in this area spreading proximally into the right hand and the right wrist on the posterior side and enveloping almost the entirety of the anterior and posterior forearm as well. On the anterior side of the right forearm a blister has formed which the has ruptured, the blister has now deflated there is no purulent or bloody drainage coming out of the blister. No obvious foreign bodies or tendons visible or cat teeth visible in the right hand cat bite wound. There is no laceration to suture. There is no abscess to drain. Neuro: Alert, oriented, mentating normally Normal 5/5 strength and normal sensation throughout the entirety of the right upper extremity. No sign of neurovascular compromise DIAGNOSTIC RESULTS RADIOLOGY (Per Emergency Physician): Interpretation per the Radiologist below, if available at the time of this note: XR hand 3+ views right (Results Pending) XR forearm 2 views right (Results Pending) LABS: Labs Reviewed BLOOD CULTURE BLOOD CULTURE CBC WITH AUTO DIFFERENTIAL BASIC METABOLIC PANEL SEDIMENTATION RATE, AUTOMATED C-REACTIVE PROTEIN LACTIC ACID WITH REFLEX All other labs were within normal range or not returned as of this dictation. EMERGENCY DEPARTMENT COURSE and DIFFERENTIAL DIAGNOSIS/MDM: Vitals: Vitals: 08/19/25 1536 08/19/25 1537 BP: 117/64 Pulse: 91 Resp: 16 Temp: 37 C (98.6 F) TempSrc: Oral SpO2: 95% Weight: 72.6 kg (160 lb) Height: 1.676 m (5' 6) Medications ampicillin-sulbactam (Unasyn) 3,000 mg in sodium chloride 0.9 % 100 mL IVPB (Mini-Bag Plus) (has noadministration in time range) Tdap (BoostRIX) vaccine 0.5 mL (has no administration in time range) bacitracin ointment (has no administration in time range) morphine injection 2 mg (has no administration in time range) ondansetron (Zofran) injection 4 mg (has no administration in time range) SCREENINGS 69-year-old male presents for right hand right wrist right forearm cellulitis after being bitten bya cat The patient is immunosuppressed on chemotherapy medication for his kidney cancer, so his immune system is not going to be able to fight this infection as well as it normally would be. He endorses a temperature of 100-0101 Fahrenheit at home, and this makes sense with his clinical presentation, thislooks like a rapidly advancing cellulitis. He needs blood cultures, lactic acid, IV Unasyn specifically since this is a cat bite. Cat is vaccinated against rabies so no rabies immunoglobulin or rabies vaccine are required at this time. Patient require hospitalization given his immune status and thefact that over 24 hours the cellulitis has gotten much worse. I do not trust him to manage this at home given his cancer history and how fast it is progressing. MEDICAL DECISION MAKING: I considered, but did not perform, additional testing such a chest CT, abdomen/pelvis or extremity CT, as well as admission or transfer to a higher level of care. I utilized an evidence-based risk rating tool (CMT) along with my training and experience to weigh the risk of discharge against the risks of further testing, imaging, or hospitalization. At this time, the risk of sepsis or NSTI is very low and most likely lower than the risk of additional testing/imaging or hospitalization (in the case of discharge home). [id number] SHARED DECISION MAKING: I discussed my risk assessment with the patient. The patient understands and consents to the risk of disposition/plan, as well as the risk of uncertainty in estimating outcomes. [id number] I did consider the possibility of a necrotizing soft tissue infection/NSTI, but the infection is not located in the groin, the patient is not hypotensive or tachycardic, he is not on dialysis or cirrhotic he is not an alcoholic and he is not diabetic. Therefore he has a USACS NSTI CMT score of 0, therefore standard therapy is recommended, no indication for a CT of the right upper extremity at this time. PROCEDURES: Unless otherwise noted below, none Procedures Metabolic panel shows mild metabolic acidosis, good kidney function, glucose within normal limits Sodium potassium normal. Calcium minimally low at 8.6 No lactic acidosis Elevated white blood cell count at 13.7 K Unchanged anemia Normal platelet count ESR and CRP both elevated Combination of heart rate of 91 bpm and elevated lactic acid consistent with sepsis. X-ray right hand shows marked osteophyte at the third MCP joint which may be hemochromatosis or other more common etiologies. Large amount of soft tissue swelling. No acute fracture or dislocation demonstrated. No obvious bony cat teeth by my read. Interpreted by radiology and by me. X-ray right forearm shows volar forearm soft tissue swelling without radiopaque foreign body. No fracture or dislocation. Interpreted by radiology and by me. SEP- CORE MEASURE DATA SIRS Criteria Sepsis Criteria Severe Sepsis Criteria Septic Shock Criteria Must meet 2: [x] Temperature > 100.4 F (38 C) or < 96.8 F (36 C) [x] HR > 90 [] RR > 20 [x] WBC > 12 or < 4 or 10% bands Must be confirmed or suspected to move forward with diagnosis of sepsis. Must select at least one: [x] Bacterial Infection Confirmed or Suspected. [] Viral Infection Confirmed or Suspected. [] Fungal Infection Confirmed or Suspected. [] No infection present. Patient does not meet criteria for Sepsis. Must meet 1: [] Lactate > 2 or [] Signs of Organ Dysfunction: - SBP < 90 or MAP < 65 - Altered mental status - Creatinine > 2 or increased from baseline - Urine Output < 0.5 ml/kg/hr - Bilirubin > 2 - INR > 1.5 - Platelets < 100,000 - Acute Respiratory Failure as evidenced by new need for NIPPV or mechanical ventilation [x] No criteria met for Severe Sepsis. Must meet 1: [] Lactate = or > 4 or [] SBP < 90 or MAP < 65 for at least two readings in the first hour after fluid bolus administration [x] No criteria met for Septic Shock. No data found. Recent Labs 08/19/25 1611 WBC 13.7* LACTATE 1.3 CREATININE 1.19 PLT 155 Sepsis Identified at 1552 Fluid Resuscitation Rationale: Patient does not have a lactic acid above 4.0 and is not hypotensive. 30 mL/kg IV fluids not indicated at this time Infection Source: Skin or Soft Tissue Reassessment Exam: Not applicable. Patient does not have Septic Shock. Tono Birch MD On reassessment, patient's blood pressure is 117/64, he is not tachycardic but heart rate is hovering in the 90s. Remains afebrile. Normal mental status. Patient requested that he be admitted to [facility] because all of his chemotherapy happens a blister. [facility] transfer center contacted approximately [phone]. They will see if hospitalist service will accept patient. Since the patient is not in severe sepsis or septic shock and there is no neurovascularcompromise of the right upper extremity at this time, there is no indication for ICU admission or ergent surgical consultation. Patient was accepted to Dr. Mahesh Medina's service at [facility]. Results of workup and plan of care explained to patient and his . They indicated understanding and agreement. They agree to inpatient admission to [facility]. Disposition: Inpatient admit [facility] Critical Care Attestation: The patient required critical care because the patient suffered sepsis. Critical care provided to the patient included: Lab review, multiple reassessments of patient, working with consultants, treating sepsis, updating and educating patient and family, documentation time. Critical care time does not include any procedures performed. I personally saw the patient and independently provided 40 minutes of non-concurrent critical care. CRITICAL CARE TIME FINAL IMPRESSION 1. Sepsis, due to unspecified organism, unspecified whether acute organ dysfunction present (HCC) 2. Cellulitis of right upper extremity 3. Cat bite, initial encounter 4. Immunocompromised state (HCC) 5. Malignant neoplasm of kidney, unspecified laterality ([facility]) DISPOSITION Admit 08/19/2025 03:52:33 PM PATIENT REFERRED TO: No follow-up provider specified. DISCHARGE MEDICATIONS: New Prescriptions No medications on file (Comment: Please note this report has been produced using speech recognition software and may contain errors related to that system including errors in grammar, punctuation, and spelling, as well as words and phrases that may be inappropriate. 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 Chambers COPD (chronic obstructive pulmonary disease) (HCC) 2020 PFTS mild Obst lung ds ([facility]ristin/Brown) COVID-19 virus infection 10/2021 DDD (degenerative disc disease), cervical 02/2024 s/p ACF per [facility] [place] Essential hypertension 1994 Ex-smoker 03/2021 Family history of diabetes mellitus sister Gastric polyps 12/[address] Ramírez, small HH also-erythematous duodenopathy H/O colonoscopy 02/2019 Ahmed- small polyp- due 2023 History of colon polyps 2000 [facility] History of pulmonary embolism 04/2023 Eliquis began ? length of rx History of renal carcinoma 2006 Left Radical Nephrectomy per Dr. Tariq History of SCC (squamous cell carcinoma) of skin 2011 scalp - [facility] [employer] [place] Hypercholesterolemia 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) 2022 / d/t Lung CA or recurrent Renal Cell CA PAD (peripheral artery disease) 07/2019 Rt > Lt, pt defering angiogram rec per Dr. 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 Cuevas, [facility] oncologist [2] Past Surgical History: Procedure Laterality Date ANTERIOR CERVICAL DISCECTOMY W/ FUSION 02/2024 Dr. Sutherland, C3-5 , [facility] COLONOSCOPY 02/2019 Ahmed- small polyp- due 2023 COLONOSCOPY 2013 Ahmed CORONARY ANGIOPLASTY WITH STENT PLACEMENT 1992 EGD (HISTORICAL) 03/2025 Dr. Chambers- Celiac ds FLEXIBLE SIGMOIDOSCOPY 01/2025 Dr. Chambers- Keytruda induced colitis LUNG REMOVAL, PARTIAL Right 03/2021 VATS thoractomy NEPHRECTOMY Left 2005 [place] OTHER SURGICAL HISTORY 02/2021 EBUS/ENB SKIN CANCER DESTRUCTION [address] [place]-,scalp UPPER GASTROINTESTINAL ENDOSCOPY 12/2021 Dr. Ramírez- mild gastritis with small HH [3] Family History Problem Relation Name Age of Onset Coronary artery disease Mother 65 CABG Stroke Mother age 77 Lung cancer Mother Coronary artery disease Father age 50 [place] - smoker Coronary artery disease Sister Amairani CABG Diabetes Sister Amairani alive age 64 No Known Problems Sister Mariana No Known Problems Sister Lidia No Known Problems Sister Joanne No Known Problems Brother Moises Coronary artery disease Brother Kaiden age 47 [place] [4] Social History Socioeconomic History Marital status: Tobacco Use Smoking status: Former Current packs/day: 0.00 Average packs/day: 1.5 packs/day for 40.1 years (60.2 ttl pk-yrs) Types: Cigarettes Start date: 02/01/1981 Quit date: 03/12/2021 Years since quittin.4 Smokeless tobacco: Never Substance and Sexual Activity Alcohol use: Yes Alcohol/week: 14.0 standard drinks of alcohol Drug use: Never Social History Narrative to Haylie since 1985. One son Michael with Haylie. 2 stepsons, 5 GC. EX- SMOKER since 03/2021 No excessive ETOH. 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 Social Drivers of Health Financial Resource Strain: Low Risk (06/30/2022) Received from [facility] Overall Financial Resource Strain (CARDIA) Difficulty of Paying Living Expenses: Not hard at all Food Insecurity: No Food Insecurity (06/30/2022) Received from [facility] Hunger Vital Sign Worried About Running Out of Food in the Last Year: Never true Ran Out of Food in the Last Year: Never true Transportation Needs: No Transportation Needs (06/13/2019) Received from [facility] PRAPARE - Transportation Lack of Transportation (Medical): No Lack of Transportation (Non-Medical): No Physical Activity: Inactive (06/13/2019) Received from [facility] Exercise Vital Sign Days of Exercise per Week: 0 days Minutes of Exercise per Session: 0 min Stress: No Stress Concern Present (06/13/2019) Received from [facility] [place] of Occupational Health - Occupational Stress Questionnaire Feeling of Stress : Not at all Social Connections: Moderately Isolated (06/13/2019) Received from [facility] Social Connection and Isolation Panel [NHANES] Frequency of Communication with Friends and Family: Twice a week Frequency of Social Gatherings with Friends and Family: Once a week Attends Hindu Services: Never Active Member of Clubs or Organizations: No Attends Club or Organization Meetings: Never Marital Status: Tono Birch MD 08/19/25 1712 [id number] NoteHNO ID: [id number] Author: NIDIA SCHAEFFER RT(Raphael) Service: ? Author Type: Technologist Type: Progress Notes Filed: 08/16/2025 14:25 Note Text: Radiology Service Progress Note PATIENT NAME: Kenn Arshad Sr. DATE OF SERVICE: August 16, 2025 TIME: 2:25 PM PATIENT IDENTITY VERIFICATION COMPLETED USING TWO (2) IDENTIFIERS: Name and Date of confirmed by patient verbally. FALL SCREENING: Has the patient had 2 falls in the last year or 1 fall with injury or currently using an Ambulatory Assistive Device (Walker, Cane, Wheelchair, Crutches, etc.)? No PATIENT GENDER DATA: Assigned male at PATIENT RELEVANT IMPLANT DATA REVIEWED: Yes PATIENT PRESENTS WITH AN IMPLANTABLE OR ATTACHED TOBACCO SIEVE OPERATOR: No RADIOLOGY DEPARTMENT: MR; Exam(s) Completed: Head: Routine Brain with Perfusion. Anesthesia: No. Aromatherapy Administered: No PERIPHERAL IV DATA: Site assessment: Clean,Dry and Intact, Site disposition Discontinued SIGNED BY: ZAMZAM Laurent) August 16, 2025 2:25 [facility]10-08-2025 NoteHNO ID: [id number] Author: MARCY EUGENE RN Service: ? Author Type: Registered Nurse Type: Progress Notes Filed: 08/16/2025 15:05 Note Text: Previously accessed at [facility] MRI complete IVAD is located in left upper chest. Blood Return: Good Flushed with: 20 ml Normal Saline Non-coring needle removed. Paper tape applied to puncture site. Port site negative for redness, edema or tenderness. Patient tolerated procedure well. [facility]10-08-2025 Progress [facility] [address] [place] [address] OFFICE VISIT Date of Service: 08/16/25 1125 MR#: [id number] Acct: [id number] Name: KENN ARSHAD Rep #: [id number] : 1955 From: Verónica Leavitt ch CHARGE OUT CLERK CHARGE OUT CLERK-C Age/Sex: 69/M Location: [facility] [place] Status: Signed HPI Subjective Date of Service 08/16/25 Chief Complaint Metastatic kidney cancer on treatment History of Present Illness Patient is a 69-year-old male smoker till February 2021 who in January 28, 2021 underwent a lung cancer screening CT scan: Showed a spiculated partially cavitary mass within the right lower lobe measuring up to 5.3 cm in maximum diameter with right hilar lymphadenopathy. February 14, 2021 PET/CT showed intensely avid right lower lobe mass consistent withmalignancy with FDGaccumulation within right hilar lymph node consistent with ramon metastases and no evidence of distant metastatic disease. Small noncalcified nodules at the periphery of the right lung base with no ap preciableFDG accumulation were noted. February 20, 2021 right lower lobe lung guided biopsy showed moderately to poorly differentiated adenocarcinoma of lung primary. March 08, 2021 brain MRI showed no abnormal intracranial enhancement to suggest intracranial metastases. March 13, 2021 patient underwent right video-assisted thoracoscopy converted to right muscle-sparing thoracotomy with right lower lobe lobectomy, right upper lobe wedge, right middle lobe wedge and mediastinal lymph node dissection by : Pathology: A. Right upper lobe wedge resection negative for malignancy. B. Right middle lobe wedge resection negative for malignancy. C. Lymph node right pulmonary ligament negative for metastatic carcinoma. D. Lymph node 11 R right middle negative for malignancy. E. Right lower lobe lobectomy multifocal adenocarcinoma grade 3. Incidentally found multiple metastatic nodules of clear-cell renal cell carcinoma and 1 of 5 peribronchial lymph nodes positive for metastatic carcinoma. F. Lymph node 11 R anterior 1 lymph node positive for metastatic carcinoma. G. Lymph node 11 R posterior negative for metastatic carcinoma. H. Lymph node level 7 1 lymph node negative for metastatic carcinoma I. Lymph node level 7 1 lymph node negative for metastatic carcinoma. J. Lymph node level 4R lower paratracheal negative for metastatic carcinoma K. Lymph node right upper paratracheal negative for metastatic carcinoma. Pathologic staging T3N1. EGFR mutation negative. Patient's past medical history is notable for being status post left total nephrectomy in 2006 for kidney cancer. He has been a smoker most of his adult life quit in February 2021 and consumes an average 2 beers per day. April 18, 2021 renal ultrasound: IMPRESSION: Status post left nephrectomy. 2. Hypoechoic solid nodules seen in the right kidney as described. Neoplastic process should be ruled out. Correlation with a CT scan is recommended for further evaluation. 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 May 02, 2021 CT abdomen and pelvis: IMPRESSION: 1. Small right pleural effusion. 2. Solid enhancing masses of the right kidney and right adrenal gland worrisome for metastatic renal cell carcinoma. No retroperitoneal lymphadenopathy. 3. Large left medially in hernia containing a segment of the descending colon and small bowel without bowel obstruction. September 25, 2021 CT chest abdomen and pelvis: IMPRESSION: Status post left nephrectomy. Interval improvement in the previously seen right adrenal mass. The remainder of the examination is unchanged. June 13, 2021 CT abdomen and pelvis: IMPRESSION: 1. Reidentification of large lobular mass of the right adrenal gland measuring at least 4 cm, suspicious for metastatic disease. Without contrast this is poorly evaluated but on the prior study with contrast a heterogeneous mass was visualized. 2. Reidentification of a rounded partially exophytic mass in the medial aspect of the midpole of the right kidney measuring at least 2.56 cm also demonstrated enhancement on the prior study which is suspicious for malignancy. September 25, 2021 CT chest abdomen and pelvis: IMPRESSION: Status post left nephrectomy. Interval improvement in the previously seen right adrenal mass. The remainder of the examination is unchanged. December 03, 2021 CT abdomen and pelvis, for an episode of acute abdominal pain: IMPRESSION: No acute findings. Suspect slight interval enlargement of the lower pole mass in the right kidney compatible with renal cell carcinoma, not well evaluated without IV contrast. Left flank hernia containing large and small bowel loops, not fully visible. No evidence of obstruction. March 04, 2022 CT chest abdomen and pelvis: IMPRESSION: 1. 3.7 x 3.2 x 3.4 cm mass concerning for neoplasm in the mid to lower right kidney is grossly stable from 12/03/2021. 2. No metastatic disease in the remainder of the exam. May 27, 2022 CT chest abdomen and pelvis: IMPRESSION: Stable examination. Exophytic soft tissue mass in the posterior medial aspect of the mid to lower aspect of the right kidney. Stable hyperplasia of the right adrenal gland. September 08, 2022 CT chest abdomen and pelvis: IMPRESSION: Stable CT scan of the thorax. Slight enlargement of the previously seen lobular solid mass in the medial mid lower portions of the right kidney. October 14, 2022 brain MRI: IMPRESSION: 1.6 cm enhancing mass in the left posterior parietal lobe containing old hemorrhage concerning for hemorrhagic metastasis.? Large amount of surrounding edema with partial effacement of the left lateral ventricle. Paranasal sinus inflammatory disease. Chronic involutional white matter changes. December 16, 2022 brain MRI: IMPRESSION: 1.? No MRI evidence of acute or subacute ischemic infarct or new brain metastatic disease.? 2.? Mild increase in size of enhancing metastatic mass in the left posterior parietal lobe measuring 1.2 x 1.6 cm, previously 1.4 x 1.2 cm. No obvious significant change of the vasogenic edema surrounding the enhancing metastatic mass in the left posterior parietal lobe.? 3.? Mild improvement of mucosal edema in the ethmoid sinuses. December 29, 2022 CT chest abdomen and pelvis: FINDINGS: CHEST Lungs are mildly hyperexpanded, with chronic interstitial changes and nonspecific pleural thickening in both hemithoraces. There is no suspicious noncalcified mass or nodule, organized infiltrate or effusion. Thyroid gland is unremarkable. Normal heart and pericardium.? There are calcifications of the coronary arteries. No suspicious axillary, mediastinal, or perihilar lymph nodes. . Normal unenhanced pulmonary arteries. ? Peripheral calcifications in the thoracic aorta without aneurysm. Bony structures show mild degenerative changes. ABDOMEN Liver is unremarkable aside from a simple cyst in the left lobe.? Normal gallbladder and extrahepatic biliary system.? Normal spleen.? Normal pancreas. Normal bilateral adrenal glands. There has been a previous left nephrectomy. No suspicious soft tissue mass or adenopathy in the left nephrectomy bed. Right kidney shows a stable concerning 3.95 x 3.71 cm mass in the lower pole. 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 Normal visualized stomach.? Normal small intestine.? Normal colon.? The appendix is visualized and appears normal. Appendix seen on coronal recon images 50 through 60 There is diffuse atherosclerotic calcification of the abdominal aorta with elongation and tortuosity, but without a demonstrated aneurysm.? Normal inferior vena cava.? Scattered subcentimeter in short axis dimension unchanged mesenteric and retroperitoneal lymph nodes. Stable left-sided spigelian hernia. Bony structures show degenerative change PELVIS Normal urinary bladder. There is no pelvic fluid.? There is no pelvic lymphadenopathy or mass lesion. Normal visualized pelvic arteries. Fat-containing right inguinal hernia.? There are diffuse degenerative changes of the visualized lumbar spine, and pelvis. IMPRESSION: There is a persistent suspicious solid mass in the lower pole of the right kidney measuring 3.95 x 3.71 cm which is anything is slightly increased in size since the previous study from August. 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 Stable simple hepatic cyst, no specific follow-up needed.? Chronic interstitial changes in both lung post without a superimposed acute pulmonary process? Degenerative bony changes? Stable-appearing left spigelian hernia January 21, 2023 brain MRI: IMPRESSION: Persistent partially hemorrhagic metastasis in the left parietal lobe with vasogenic edema which is relatively stable in size since prior study. No new lesions identified March 13, 2023 chest abdomen and pelvis CT: IMPRESSION: 1.? Slightly larger right posterior mediastinal lymph node of uncertain significance.? 2.? Stable solid 4.2 cm right renal mass. March 16, 2023 brain MRI: IMPRESSION: 1.? There is moderate interval enlargement and doubling in size of the mass in the posterior medial aspect and middle one third region of the left parietal lobe at the periphery of the splenium of the corpus callosum -the primary concern is for progression of the malignancy, however post radiation necrosis and flaring can be considered if there is history of recent radiation treatment to this region. MR spectroscopy can also be acquired to help in differentiating the processes. Clinical consult with neurosurgery is recommended. The left parietal mass has a thick enhancing rim with central necrosis and now measures 3.10 x 2.28 cm compared to the previous measurement of 1.2 x 1.6 cm. 2.? The surrounding vasogenic edema has slightly increased and is extended to the parasagittal and posterior aspect of the superior segment of the occipital lobe and has slightly increased in the anterior to posterior dimension and superior and posterior aspect of the left parietal lobe when compared to the prior study compared images / series 6 on the old study and 18/25 series 6 on the current study. 3.? There is also slightly more mass effect on the occipital horn of the left lateral ventricle compared to the prior study. Minimal midline shift of 1 to 2 mm is present. 4.? No hydrocephalus is seen. There is no transtentorial herniation. 5.? There are no visualized metastatic lesions in the remaining aspects of the cerebral hemispheres or in the posterior fossa April 16, 2023 MRI spectroscopy at [facility] Main campus: Impression: Spectroscopy and perfusion findings medial and dorsal aspects of the treated presumed left parietalmetastasis compatible with viable tumor with more extensive surrounding radiation necrosis. May 02, 2023 CTA; emergency room visit because of shortness of breath to rule out PE IMPRESSION: No evidence of acute pulmonary embolism. Small chronic nonocclusive right lower lobar pulmonary embolism. New 3 mm spiculated right lower lobe nodule and left lower lobe pulmonary nodules measuring up to 8 mm, suspicious for metastases. Progression of mild mediastinal and hilar lymphadenopathy. Mild pneumonitis or atypical pneumonia with mosaic attenuation pattern and groundglass opacities with mild septal thickening most confluent in the left upper lobe inferiorly. Chronic scarring in the right lung with pleural thickening. Enhancing right renal mass. Left nephrectomy. These images were reviewed by myself and radiology colleague (courtesy second opinion with questionbiopsy) and new right lower lobe nodule was not verifiedand by no means would be amenable to biopsy at the size. June 28, 2023 CT chest abdomen and pelvis: IMPRESSION: Stable probable hepatic cyst. Relatively stable right renal masses as noted. Status post left nephrectomy. Mild peripheral interstitial thickening in the lungs. Mild mediastinal adenopathy. October 05, 2023 CT chest abdomen and pelvis: IMPRESSION: 1. Improved bilateral hazy groundglass opacities/infiltrates. 2. Right middle lobe pleural-based density likely due to scarring and postoperative changes unchanged. 3. No evidence of new metastatic disease. 4. Status post left nephrectomy. 5. Left lateral ventricle hernia containing bowel loops and colon without evidence of obstruction unchanged. 6. Bilateral inguinal hernias containing fat. 7. No focal acute inflammatory process. January 13, 2024 chest abdomen and pelvis CT: IMPRESSION: 1. Chronic changes in the lungs unchanged. 2. Stable 7 mm left lower lobe nodule. 3. Stable right paratracheal adenopathy unchanged 4. No evidence of new metastatic disease. 5. Status post left nephrectomy. 6. Stable solid mass in the right kidney likely malignant until proven otherwise. 7. Additional nonacute changes as described above. 8. Further follow-up exam is needed. April 27, 2024 chest abdomen and pelvis CT: IMPRESSION: Stable examination. August 09, 2024 CT chest abdomen and pelvis: IMPRESSION: 1. Solid right-sided renal nodule suggests renal cell carcinoma. This appears unchanged since previous CT. 2. Status post left-sided nephrectomy. 3. Left flank ventral hernia containing bowel. 4. Left basilar airspace disease and/or atelectasis. 5. Unchanged appearance to right middle lobe subpleural nodule. January 10, 2025 CT chest abdomen and pelvis: IMPRESSION: 1. No CT evidence of acute pulmonary embolism. 2. Stable right renal mass suggestive of renal cell carcinoma. Exophytic cyst and lipoma/angiomyolipoma are also noted in the right kidney. 3. Nodular densities in the right middle and right lower lobe which may represent atypical infection versus neoplastic/metastatic disease. 4. Hepatic steatosis and hepatomegaly 5. Mild intrahepatic biliary dilatation 6. Mild splenomegaly January 18, 2025 sigmoidoscopy: SIGMOID COLON, BIOPSY: - Focal active colitis with acute cryptitis and crypt abscess ? see note. - Note: The focal and limited nature of the inflammation, plus lack of apoptosisor crypt distortion/drop ou,t and without increased eosinophils, favors focal active colitis due to bowel prep artifact or medication injury (eg: NSAIDs) or resolving/mild infection over immunotherapy-induced colitis. March 21, 2025 CT chest abdomen and pelvis: IMPRESSION: New right pleural effusion with infiltration in both lungs worse on the right side as described. Status post left nephrectomy. Persistent masses in the right kidney. March 22, 2025 EGD: Impressions : - Non-severe reflux esophagitis with no bleeding. - Erythematous mucosa in the gastric body. - Duodenal mucosal changes seen, diagnostic of celiac disease. Biopsied. Pathology: MICROSCOPIC DIAGNOSIS A. Small bowel, duodenum, biopsy: - Marked villous blunting with acute inflammation and patchy mild increase of intraepithelial lymphocytes Trichrome stain highlights patchy mild thickening of the subepithelial collagen table. The consensus opinion is: Collagenous colitis pattern of injury - see comment. Comment: There is atrophy of villi with increased intraepithelial lymphocytes, scattered surface neutrophilic inflammation and increased subepithelial collagen. This is consistent with collagenous colitis pattern of injury which is a non-specific pattern of injury. The differential diagnosis includes celiac disease and medication-related injury. While these features can be seen with immunocheckpoint inhibitor enteritis, there would usually be more prominent acute inflammation and increased apoptosis. Correlation with clinical impression, medication history, and serologic studies is recommended June 28, 2025 CT chest abdomen and pelvis: IMPRESSION: Interval improvement in the right pleural effusion as well as the previously seen nodular densitiesin both lung bases as described. Residual small right pleural effusion. Stable right renal masses. Diffuse bladder wall thickening. Prostatic enlargement with calcifications. Stable hernia in the posterior lateral aspect of the left midabdomen containing nondilated small bowel loops. Treatment summary and response: * 2005 left radical nephrectomy. * March 13, 2021 video-assisted thoracoscopy converted to right muscle-sparing thoracotomy with right lower lobe lobectomy, right upper lobe wedge, right middle lobe wedge and mediastinal lymph node dissection. * May 07, 2021 pembrolizumab plus axitinib for metastatic RCC. Axitinib discontinued May 2021 dueto hypertensive crisis. * Keytruda single agent May 07 ?July 30, 2021 (5 cycles) [place] but held in August 2021 due to ELANA. Resumed November 26, 2021 with no recurrent. Held again January 2025 when he developed acute colitis. To resume March 13, 2025 * Stereotactic brain radiation at [facility] October 28, 2022 a single fraction with 10 MV photons. Interval History Patient is here in the clinic accompanied by spouse for an evaluation anticipating he will begin c65 pembrolizumab. C/o dizziness ongoing x several weeks. Discussed with Dr. Acevedo and has MRI later today and follow up with him next week. Rash involving upper back continues, mild intermittent- unchanged. Using triamcinolone cream as prescribed by dermatology. Adherent to GF diet as advised by GI, no N/V/D. [facility] Medical History MRSA (methicillin resistant staph aureus) culture positive Acute infective gastroenteritis COPD exacerbation History of steroid therapy Low iron Seizures Shortness of breath on exertion History of pain when walking History of edema History of echocardiogram Cardiology follow-up encounter Cervical spinal cord injury Cervical stenosis of spine Numbness in right leg RUE numbness Diarrhea Hypokalemia Duodenal ulcer Anemia Diabetes mellitus, type 2 Hyperglycemia Hyponatremia Thrombocytopenia Pulmonary emboli COPD (chronic obstructive pulmonary disease) Imbalance Brain metastasis Pneumonia Sinus congestion Hx of radiation therapy Brain metastasis Frequent headaches Epistaxis Contact with or suspected exposure to other viral communicable disease Iron deficiency anemia due to chronic blood loss Encounter for immunotherapy Encounter for immunotherapy COVID-19 Nonrheumatic aortic (valve) stenosis with insufficiency Elevated troponin (05/15/21) Encephalopathy (05/15/21) Seizure (05/15/21) Metastatic renal cell carcinoma to lung Dyspnea Metastasis to adrenal gland Port-A-Cath in place Atherosclerotic heart disease of [place] coronary artery without angina pectoris Hyperlipidemia Wears glasses Wears dentures Gastric reflux Former smoker History of primary malignant neoplasm of left kidney 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 Skin cancer Abnormal colonoscopy Essential (primary) hypertension COPD (chronic obstructive pulmonary disease) Adenocarcinoma of right lung Surgical History H/O cervical discectomy History of cataract surgery History of lobectomy of lung History of nephrectomy, left History of coronary angioplasty (01/05/04) History of coronary artery stent placement (07/17/03) Family History Sister Diabetes CAD (coronary artery disease) Mother CVA (cerebral vascular accident) CAD (coronary artery disease) Lung cancer Father CAD (coronary artery disease) Brother CAD (coronary artery disease) Social History household members: spouse Smoking Status: Former smoker Tobacco: How many years used: 40 second hand exposure: No alcohol intake: current alcohol intake frequency: a few times a month Alcohol type: beer substance use type: does not use seatbelt use: always do you feel safe at home: Yes ROS ROS Narrative Negative except as documented in the interval HPI Intake Vital Signs 07/05/25 13:19 08/16/25 11:26 Height 5 ft 5 in 5 ft 5 in Weight: 182 lb 7 oz BMI 30.3 BP 150/72 H Blood Pressure Location Lt brachial Position Sitting Respiration 18 Pulse 75 Pulse Source Monitor Temp 98.1 F Temperature Source Temporal Artery Pulse Oximetry (%) 91 Oxygen Delivery Method room air Intake Accompanied by: Self Is patient in pain?: No Allergies No Known Allergies Allergy (Verified 08/16/25 11:29) Medications ?Medication ?Instructions ?Recorded ?Confirmed ?Type rosuvastatin 40 mg tablet (Crestor) 40 mg PO QHS YING STEROL 08/18/18 08/16/25 History carvedilol 25 mg tablet 25 mg PO BID blood pressure 04/30/21 08/16/25 History hydralazine 50 mg tablet 50 mg PO BID blood pressure 05/31/21 08/16/25 History apixaban 5 mg tablet (Eliquis) 2.5 mg (1/2 x 5 mg) PO BID #60 tabs 07/20/23 08/16/25 Rx amlodipine 10 mg tablet 10 mg PO DAILY #90 tabs 08/0908/16/25 Rx pembrolizumab 25 mg/mL intravenous 200 mg IV Q21D 04/0208/16/25 History solution (Keytruda) fluticasone fur. 100 mcg-umeclid 1 inh inhalation QDAY #60 ea 06/09/25 08/16/25 Rx 62.5 mcg-vilant 25 mcg inhalat.powder (Trelegy Ellipta) ipratropium 0.5 mg-albuterol 3 mg 3 ml inhalation Q4H PRN shortness 06/09/25 08/16/25 Rx (2.5 mg base)/3 mL nebulization of breath or wheezing #180 mL soln triamcinolone acetonide 0.1 % applic topical 06/09/25 08/16/25 History topical cream budesonide 3 mg 6 mg PO QDAY 08/04/25 History capsule,delayed,extended release Have you fallen in the past year?: No Central Venous Access Central Venous Access: Yes Port/PICC: Port Laboratory Tests 08/16/25 10:35 WBC 7.0 Hgb 12.4 L Hct 39.0 L Plt Count 166 Absolute Neuts (auto) 4.8 Sodium 139 Potassium 3.8 Chloride 107 Carbon Dioxide 20.3 L BUN 24 H Creatinine 1.01 Glucose 93 Calcium 8.8 Phosphorus 3.6 Total Bilirubin 0.46 AST 15 ALT 12 Alkaline Phosphatase 50 Albumin 3.8 Exam Physical Exam Narrative ECOG 1 Const alert and no apparent distress General Appearance: comfortable HEENT normocephalic Mouth: oral and palatal mucosa normal and No thrush Eyes no scleral icterus General Eye: normal appearance of both eyes Neck full ROM, supple and no JVD Lymph Lymphatic: no lymphadenopathy noted Chest Chest Narrative: Port R IC area Chest: symmetrical chest wall rise and vascular access Resp normal respiratory effort and clear to auscultation bilaterally Cardio regular rate, regular rhythm, S1 normal heart sound, S2 normal heart sound and no murmurs GI soft to palpation, non-tender and non-distended; Negative for hepatosplenomegaly no CVA tenderness Back/Spine no thoracic nor lumbar tenderness Extremity no clubbing, cyanosis or edema Skin no rashes or lesions noted Skin Narrative: BLE with ecchymosis- various stages of healing. Neuro CN's II-XII intact bilaterally, moves all extremities and no focal motor deficits Speech: speech normal Gait (Neuro): normal gait, assistive device used cane and other Psych mental status grossly normal Coding Level of Care Code Off vis,est,level 4 Exam Problem Focused Diagnoses Cancer of right kidney C64.1 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 C64.9; C78.00 Malignant neoplasm metastatic to right adrenal gland C79.71 Laterality: right Regional lymph node metastasis present C77.9 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 C34.31 History of primary malignant neoplasm of left kidney Z85.528 Brain metastasis C79.31 Iron deficiency anemia due to chronic blood loss D50.0 Assessment and Plan Assessment and Plan (1) Cancer of right kidney: Status: Chronic (2) 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: Status: Chronic (3) 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 Qualifiers: Laterality: right Qualified Code(s): C79.71 - Secondary malignant neoplasm of right adrenal gland (4) 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 Metastatic renal cell cancer incidentally found in the right lower lobe lungresection March 12, 2021 multiple nodules. Patient is status post left nephrectomy in August 2006 for a 6.5 cm clear-cell renal cancer confined to the kidney withno lymphovascular invasion and most likely cured by the radical surgery. Patient has an incidentally (asymptomatic, not PET avid) found at least 2 solid nodules in the right kidney most consistent with primary renal cancer and is themost likely source for the metastatic RCC pathologically confirmed and the rightlower lobe of the lung in March 2021. Patient is in the intermediate risk group based on the international Metastatic Renal Cell Carcinoma Database Consortium criteria since he presents with metastatic disease de corry. Patient started systemic therapy with combination pembrolizumab and axitinib May 07, 2021. He developed a hypertensive crisis ontop of pre-existing hypertension requiring hospitalization (TIA and seizure). Axitinib has been on hold since. He was seen by cardiology (Dr. Sandoval), blood pressure medications were adjusted with better blood pressure control. Although Dr. Sandoval did not feel that axitinib is contraindicated once his blood pressure is under good control, patient is hesitant about resuming therapy with axitinib. He continued to tolerate Keytruda with no grade 3 or 4 toxicities April through August 2021 (so farreported subjective fatigue and noted a rash over the uppertrunk that responded to topical [id number] preparation). Keytruda held August 2021 due to acute kidney injury cause unclear (baseline creatinine 1.0, peak 1.9). 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 His creatinine recovered to baseline by November 2021. * Imaging (no contrast was given) September 2021 shows a marked improvement in the mass involving the right kidney and right adrenal gland. There are stable abnormalities in the chest that are nonspecific. * Imaging (no contrast) November 2021 during an acute episode of abdominal pain suggested slight worsening of the mass involving the right kidney but he had been off therapy for a while. Resumed Keytruda November 2021, recurrent rash manageable with topical steroids is likely a side effect. Slight increase in creatinine (less than 0.3 mg per DL, not mounting to grade 1 toxicity) also likely side effect of Keytruda. * Imaging August 2022 shows if any subtle minimal enlargement in the mass in the right kidney. No other evidence of progression of disease elsewhere. 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 * December 2022 had some recurrent headache and brain MRI showed if any mild increase in the size of the mass in the left posterior parietal lobe with surrounding edema improved with steroids. 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 * Imaging of the chest abdomen and pelvis most recent is June 2025 shows overall stable disease . January 2025 was hospitalized with acute diarrheal illness, was started on oral steroids for provisional diagnosis of checkpoint inhibitor induced gastroenteritis, underwent sigmoidoscopy, pathology came back favoring an infectious etiology over immune mediated enteritis. Weaned off steroids over February 2025 to resume pembrolizumab with no recurrence of diarrhea. 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 Was treated with high-dose steroids gradually weaning of to be replaced with budesonide and was placed on agluten-free diet; improved 2. Non-small cell lung cancer, adenocarcinoma poorly differentiated G3 stage IIB(T3, N1, M0) statuspost R0 resection March 12, 2021. Tumor is EGFR negative (exons 18, 19, 20 and 21) Adjuvant systemic chemotherapy would be advisable if the patient did not have anactive ongoing 2nd malignancy that is not chemo sensitive. However immune therapy with PDL 1 inhibitor as part of the standard treatment for metastatic non-small cell lung cancer at this time and its role in adjuvant setting is being investigated and is conceivably have some effectiveness. 3. 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 4. Anemia: Of iron deficiency due to chronic GI blood loss (peptic ulcer disease) and cancer cancerits therapy. His anemia did not respond to oral iron vitamin C supplement but improved following IV iron, to relapse again by February 2023 Comorbid conditions: Smoker till February 2021, emphysema (pathology of resection 2020), hiatus hernia. 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 Degenerative spine disease. Plan: 1-continue pembrolizumab cycle 65 today. 2-VEGF inhibitor targeted therapy permanently discontinued due to prior hypertensive crisis complicated with seizures from which he recovered. To consider mtor inhibitor for subsequent therapy in thefuture. 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 MRI brain at [facility] later today, follow up with Dr. Acevedo next week. 4-elective imaging every 4 months next to schedule October 2025. 5-IV iron as needed for recurrent iron deficiency anemia from acute and chronic GI blood loss (peptic ulcer disease). 6-advised continue systemic anticoagulation with Eliquis for incidental finding of pulmonary embolism in April 2023 at reduced dose of 2.5 Mg twice daily. There have been occasions when he stopped it by his own initiative then resumes back. RTO 09/06/25 for ?c65 pembrolizumab. Clinical Quality Measures Falls Risk Screening/Assistive Devices Have you fallen in the past year?: No 08/16/25 1208 h CHARGE OUT CLERK CHARGE OUT CLERK-C> Date _ Verónica Meadows CHARGE OUT CLERK CHARGE OUT CLERK-C Cosigner Signature: Date (if applicable) CC: ~ [facility]09-26-2025 [facility] [address] [place], [place] [id number] OFFICE VISIT Date of Service: 08/04/25 MR#: [id number] Acct: [id number] Name: KENN ARSHAD Rep #: [id number] : 1955 Provider: Dr. Edilson Sandoval MD Age/Sex: 69/M Location: [facility] Status: Signed HPI HPI History of Present Illness Details: 69-year-old man with a history of renal cell carcinoma status post left nephrectomy in 2005 and a history of coronary artery disease status post bare- metal stenting to the left posterolateral branch with bare-metal stenting in 2002. He also had a drug-eluting stent placed to the left circumflex artery. In 2003 he had plain old balloon angioplasty to the first obtuse marginal branchwhich had in-stent stenosis. He also has a history of hyperlipidemia, hypertension, and mild aortic stenosis. He was noted most recently to have developed recurrent renal cell carcinoma as well as a lung primary which appeared to be separate which was an adenocarcinoma. He was started on chemotherapy and developeda significant surge in his blood pressure. His blood pressures were over 200 systolic. [facility] with confusion and inability to talk and walk well. Extensive work-up includingan MRI of the head, CTA of the neck vessels was performed. Hydralazine was added to his blood pressure medications and he was also started on Keppra. He had also been started on axitinib and unfortunately he did have blood pressure elevation with that and needed to be admitted. That has been discontinued. He was admitted to the hospital in January 2025 with a lower GI bleed and was seen byGI he underwent endoscopy and it demonstrated congested mucosa found in the rectum and rectosigmoid colonbiopsies were taken and it demonstrated an inflammatory gastropathy consistent with celiac disease.Has been on a gluten-free diet and his GI problems have abated. He has remained on his Keytruda. Hedid have an echocardiogram performed during that admission demonstrating an ejection fraction of 65%with no wall motion abnormalities noted. He also do remember that in August 2024 he had a stress test performed to a moderate workload with no evidence of ischemia. He has had mild occasional dizziness buthis blood pressure has been under good control. Intake Vital Signs 06/28/25 14:40 07/26/25 10:16 08/04/25 11:48 Height 5 ft 5 in 5 ft 5 in 5 ft 5 in Weight: 185 lb BMI 30.7 BP 132/70 H Blood Pressure Location Rt brachial Position Sitting Respiration 16 Pulse 70 Pulse Source Monitor Temp 98.4 F Temperature Source Temporal Artery Pulse Oximetry (%) 95 Oxygen Delivery Method room air Intake Visit Reasons: 6 M Post Graduate Internship Required: No Accompanied by: Is patient in pain?: No Allergies No Known Allergies Allergy (Verified 08/04/25 11:40) Medications ?Medication ?Instructions ?Recorded ?Confirmed ?Type rosuvastatin 40 mg tablet (Crestor) 40 mg PO QHS YING STEROL 08/18/18 07/26/25 History carvedilol 25 mg tablet 25 mg PO BID blood pressure 04/30/21 07/26/25 History hydralazine 50 mg tablet 50 mg PO BID blood pressure 05/31/21 07/26/25 History apixaban 5 mg tablet (Eliquis) 2.5 mg (1/2 x 5 mg) PO BID #60 tabs 07/20/23 07/26/25 Rx amlodipine 10 mg tablet 10 mg PO DAILY #90 tabs 08/0907/26/25 Rx pembrolizumab 25 mg/mL intravenous 200 mg IV Q21D 04/0207/26/25 History solution (Keytruda) fluticasone fur. 100 mcg-umeclid 1 inh inhalation QDAY #60 ea 06/09/25 07/26/25 Rx 62.5 mcg-vilant 25 mcg inhalat.powder (Trelegy Ellipta) ipratropium 0.5 mg-albuterol 3 mg 3 ml inhalation Q4H PRN shortness 06/09/25 07/26/25 Rx (2.5 mg base)/3 mL nebulization of breath or wheezing #180 mL soln triamcinolone acetonide 0.1 % applic topical 06/09/25 07/26/25 History topical cream budesonide 3 mg 6 mg PO QDAY 08/04/25 Histo ry capsule,delayed,extended release Have you fallen in the past year?: No PFSH Medical History MRSA (methicillin resistant staph aureus) culture positive Acute infective gastroenteritis COPD exacerbation History of steroid therapy Low iron Seizures Shortness of breath on exertion History of pain when walking History of edema History of echocardiogram Cardiology follow-up encounter Cervical spinal cord injury Cervical stenosis of spine Numbness in right leg RUE numbness Diarrhea Hypokalemia Duodenal ulcer Anemia Diabetes mellitus, type 2 Hyperglycemia Hyponatremia Thrombocytopenia Pulmonary emboli COPD (chronic obstructive pulmonary disease) Imbalance Brain metastasis Pneumonia Sinus congestion Hx of radiation therapy Brain metastasis Frequent headaches Epistaxis Contact with or suspected exposure to other viral communicable disease Iron deficiency anemia due to chronic blood loss Encounter for immunotherapy Encounter for immunotherapy COVID-19 Nonrheumatic aortic (valve) stenosis with insufficiency Elevated troponin (05/15/21) Encephalopathy (05/15/21) Seizure (05/15/21) Metastatic renal cell carcinoma to lung Dyspnea Metastasis to adrenal gland Port-A-Cath in place Atherosclerotic heart disease of [place] coronary artery without angina pectoris Hyperlipidemia Wears glasses Wears dentures Gastric reflux Former smoker History of primary malignant neoplasm of left kidney 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 Skin cancer Abnormal colonoscopy Essential (primary) hypertension COPD (chronic obstructive pulmonary disease) Adenocarcinoma of right lung Surgical History H/O cervical discectomy History of cataract surgery History of lobectomy of lung History of nephrectomy, left History of coronary angioplasty (01/05/04) History of coronary artery stent placement (07/17/03) Family History Sister Diabetes CAD (coronary artery disease) Mother CVA (cerebral vascular accident) CAD (coronary artery disease) Lung cancer Father CAD (coronary artery disease) Brother CAD (coronary artery disease) Social History household members: spouse Smoking Status: Former smoker Tobacco: How many years used: 40 second hand exposure: No alcohol intake: current alcohol intake frequency: a few times a month Alcohol type: beer substance use type: does not use seatbelt use: always do you feel safe at home: Yes ROS Const Const: Negative for fatigue, body ache, fever(s) or chills ENT ENT: Positive for dizziness (dizziness has worsened); Negative for Nosebleed/epistaxis Cardio Chest Pain: No Palpitations: No Edema: None Muscle aches with walking: None Resp Respiratory: Negative for SOB with activity, SOB at rest, SOB orthopnea\SOB lying down, Cough or paroxysmal nocturnal dyspnea GI GI: Negative nausea, bright, red blood in stools, black,tarry stools or loose stools : Negative for hematuria or frequent nighttime urination/ nocturia Musc Musc: Negative for muscle aches/ myalgia Skin Skin: Negative non-healing lesions Neuro Neuro: Positive for dizziness (dizziness has worsened); Negative for lightheadedness, near syncope, syncope or orthostatic symptoms Endo Endo: Negative for fatigue Cardiology Exam Const Appearance: cooperative, healthy appearing, no acute distress, well developed and well groomed Nutritional Appearance: average body habitus and well nourished Orientation: alert, awake and oriented x3 Head Head: normal to inspection, normocephalic and atraumatic Ears: hearing grossly normal bilaterally and external ears normal Nose: external nose normal, nares normal, nasal mucous membranes and turbinates normal, septum normal and no nasal discharge Face and Sinus: face symmetric Mouth: oral mucosae normal, tongue normal, oropharynx normal and moist mucous membranes Teeth and gingiva: dentition normal Throat: posterior oropharynx normal, tonsils normal and uvula midline Eyes General: appearance normal, both eyes and all related structures Eyelids: eyelids normal Conjunctivae: conjunctivae normal Pupils: PERRL, normal by confrontation and accommodation normal EOM: EOM intact bilaterally Neck Neck: normal visual inspection, trachea midline and no JVD JVD: +5 Carotids: normal carotid upstroke, bounding pulses and bruit Chest Chest inspection: normal inspection of the chest, symmetric chest movement and normal respiratory effort Auscultation: Bilateral: Clear to Auscultation Cardio Palpation: normal PMI Rate: regular rate Rhythm: regular rhythm Heart sounds: S1 normal, S2 normal, murmur and normal, physiologic split S2; Negative rub or gallop Murmur: Grade 2/6 and early systolic GI GI: normal to inspection, soft, no hepatosplenomegaly and bowel sounds present Neuro General: patient alert, patient awake, patient oriented x3, gait normal, moves all extremities and no focal sensory deficit Skin Skin: no rashes or lesions noted Extremities Pulses: Normal: Right Femoral Pulse, Left Femoral Pulse, Right Dorsalis Pedis Pulse, Left Dorsalis Pedis Pulse, Right Posterior Tibial Pulse, Left Posterior Tibial Pulse, Right Radial Pulse and Left Radial Pulse Lower Extremity Edema: None: Bilateral Musculoskel Musculoskeletal: No joint tenderness Psych Psychological: normal affect Supplemental Info Supplemental Information Labs: LDL Cholesterol, (0-130) 68 mg/dL HDL Cholesterol, (40-) 35 mg/dL L Cholesterol, (200) 132 mg/dL Triglycerides, (-199) 147 mg/dL Diagnostics: Electrocardiogram Echocardiogram Stress Test Stress Test Nuclear Medicine Chest X-Ray Chest CTA Abdomen/Pelvis CT Carotid Duplex Venous Doppler Study Pulmonary: Pulmonary Function Test Pulmonary Exercise Test Past Visits: Cardiology Visit Today Assessment and Plan Assessment and Plan (1) History of coronary artery stent placement: Status: Resolved Comment: [id number] w/ 2.25 x 18 mm Biodivysio Stent x 2, BMS-OM1 w/ 2.25 x 18 mm Biodivysio Stent and 2.25 x 18 mm Pixel Stent and MARVIN-Prox LCx w/ 3.5 x 18 mm Cypher Stent 07/17/2003 Plan: He does have a history of coronary artery disease status post previous angioplasty and stenting. Heis doing well and the plan is for him to continue the current medical therapy without making any changes. His myocardial perfusion scan did not demonstrate any evidence of ischemia and the plan is tocontinue him on the current medical therapy. (2) Essential (primary) hypertension: Status: Chronic Plan: He does have a history of hypertension his blood pressure is under good control. I would not recommend that we make any changes at this time. His blood pressure based on his recent echocardiogram wasnoted to be stable. (3) Nonrheumatic aortic (valve) stenosis with insufficiency: Status: Chronic Plan: He does have mild aortic stenosis with mild regurgitation. His last echocardiogram was encouraging we will continue to follow him with serial echocardiograms. (4) Hyperlipidemia: Status: Chronic Plan: Does have a history of hyperlipidemia and his most recent lipid profile demonstrated a total cholesterol 156, LDL of 62 and HDL of 78. No changes will be made at this time. Repeat lipid profile will be performed. (5) Metastatic renal cell carcinoma to lung: Status: Chronic Qualifiers: Laterality: right Qualified Code(s): C78.01 - Secondary malignant neoplasm of right lung; C64.9 - Malignant neoplasm of unspecified kidney, except renal pelvis Comment: RIGHT LOWER LOBECTOMY Plan: He does have metastatic renal carcinoma to the lung. He is doing well and is seen the oncologist aswell as radiation oncologist. On his visit to the cardiooncology clinic today he appears to be stable and no major changes were made Thank you for allowing me to participate in the care of your patient. Please don't hesitate to callif any issues arise. (6) Carotid bruit: Status: Acute Plan: He does have bilateral carotid bruits. My recommendation be for us to obtain carotid ultrasound anddepending on the findings further recommendations will bemade. Plan Details Follow Up: 6 Months (abstract manager/onc) Coding Level of Care Code Off vis,est,level 4 Diagnoses History of coronary artery stent placement Z95.5 Essential (primary) hypertension I10 Nonrheumatic aortic (valve) stenosis with insufficiency I35.2 Hyperlipidemia E78.5 Secondary renal cell carcinoma of right lung C78.01; C64.9 Laterality: right Carotid bruit R09.89 Coding Level of Care Code Off vis,est,level 4 Diagnoses History of coronary artery stent placement Z95.5 Essential (primary) hypertension I10 Nonrheumatic aortic (valve) stenosis with insufficiency I35.2 Hyperlipidemia E78.5 Secondary renal cell carcinoma of right lung C78.01; C64.9 Laterality: right Carotid bruit R09.89 Clinical Quality Measures Falls Risk Screening/Assistive Devices Have you fallen in the past year?: No 08/04/25 1209 D> Date _ Thien Bolanos Signature: Date (if applicable) CC: ~ [facility]09-17-2025 [facility] [address] [place] [id number] OFFICE VISIT Date of Service: 07/26/25 1009 MR#: [id number] Acct: [id number] Name: KENN ARSHAD Linda Rep #: [id number] : 1955 From: Verónica Leavitt ch CHARGE OUT CLERK CHARGE OUT CLERK-C Age/Sex: 69/M Location: [facility] Status: Signed HPI Subjective Date of Service 07/26/25 Chief Complaint Metastatic kidney cancer on treatment History of Present Illness Patient is a 69-year-old male smoker till February 2021 who in January 28, 2021 underwent a lung cancer screening CT scan: Showed a spiculated partially cavitary mass within the right lower lobe measuring up to 5.3 cm in maximum diameter with right hilar lymphadenopathy. February 14, 2021 PET/CT showed intensely avid right lower lobe mass consistent withmalignancy with FDGaccumulation within right hilar lymph node consistent with ramon metastases and no evidence of distant metastatic disease. Small noncalcified nodules at the periphery of the right lung base with no ap preciableFDG accumulation were noted. February 20, 2021 right lower lobe lung guided biopsy showed moderately to poorly differentiated adenocarcinoma of lung primary. March 08, 2021 brain MRI showed no abnormal intracranial enhancement to suggest intracranial metastases. March 13, 2021 patient underwent right video-assisted thoracoscopy converted to right muscle-sparing thoracotomy with right lower lobe lobectomy, right upper lobe wedge, right middle lobe wedge and mediastinal lymph node dissection by : Pathology: A. Right upper lobe wedge resection negative for malignancy. B. Right middle lobe wedge resection negative for malignancy. C. Lymph node right pulmonary ligament negative for metastatic carcinoma. D. Lymph node 11 R right middle negative for malignancy. E. Right lower lobe lobectomy multifocal adenocarcinoma grade 3. Incidentally found multiple metastatic nodules of clear-cell renal cell carcinoma and 1 of 5 peribronchial lymph nodes positive for metastatic carcinoma. F. Lymph node 11 R anterior 1 lymph node positive for metastatic carcinoma. G. Lymph node 11 R posterior negative for metastatic carcinoma. H. Lymph node level 7 1 lymph node negative for metastatic carcinoma I. Lymph node level 7 1 lymph node negative for metastatic carcinoma. J. Lymph node level 4R lower paratracheal negative for metastatic carcinoma K. Lymph node right upper paratracheal negative for metastatic carcinoma. Pathologic staging T3N1. EGFR mutation negative. Patient's past medical history is notable for being status post left total nephrectomy in 2005 for kidney cancer. He has been a smoker most of his adult life quit in February 2021 and consumes an average 2 beers per day. April 18, 2021 renal ultrasound: IMPRESSION: Status post left nephrectomy. 2. Hypoechoic solid nodules seen in the right kidney as described. Neoplastic process should be ruled out. Correlation with a CT scan is recommended for further evaluation. 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 May 02, 2021 CT abdomen and pelvis: IMPRESSION: 1. Small right pleural effusion. 2. Solid enhancing masses of the right kidney and right adrenal gland worrisome for metastatic renal cell carcinoma. No retroperitoneal lymphadenopathy. 3. Large left medially in hernia containing a segment of the descending colon and small bowel without bowel obstruction. September 25, 2021 CT chest abdomen and pelvis: IMPRESSION: Status post left nephrectomy. Interval improvement in the previously seen right adrenal mass. The remainder of the examination is unchanged. June 13, 2021 CT abdomen and pelvis: IMPRESSION: 1. Reidentification of large lobular mass of the right adrenal gland measuring at least 4 cm, suspicious for metastatic disease. Without contrast this is poorly evaluated but on the prior study with contrast a heterogeneous mass was visualized. 2. Reidentification of a rounded partially exophytic mass in the medial aspect of the midpole of the right kidney measuring at least 2.56 cm also demonstrated enhancement on the prior study which is suspicious for malignancy. September 25, 2021 CT chest abdomen and pelvis: IMPRESSION: Status post left nephrectomy. Interval improvement in the previously seen right adrenal mass. The remainder of the examination is unchanged. December 03, 2021 CT abdomen and pelvis, for an episode of acute abdominal pain: IMPRESSION: No acute findings. Suspect slight interval enlargement of the lower pole mass in the right kidney compatible with renal cell carcinoma, not well evaluated without IV contrast. Left flank hernia containing large and small bowel loops, not fully visible. No evidence of obstruction. March 04, 2022 CT chest abdomen and pelvis: IMPRESSION: 1. 3.7 x 3.2 x 3.4 cm mass concerning for neoplasm in the mid to lower right kidney is grossly stable from 12/03/2021. 2. No metastatic disease in the remainder of the exam. May 27, 2022 CT chest abdomen and pelvis: IMPRESSION: Stable examination. Exophytic soft tissue mass in the posterior medial aspect of the mid to lower aspect of the right kidney. Stable hyperplasia of the right adrenal gland. September 08, 2022 CT chest abdomen and pelvis: IMPRESSION: Stable CT scan of the thorax. Slight enlargement of the previously seen lobular solid mass in the medial mid lower portions of the right kidney. October 14, 2022 brain MRI: IMPRESSION: 1.6 cm enhancing mass in the left posterior parietal lobe containing old hemorrhage concerning for hemorrhagic metastasis.? Large amount of surrounding edema with partial effacement of the left lateral ventricle. Paranasal sinus inflammatory disease. Chronic involutional white matter changes. December 16, 2022 brain MRI: IMPRESSION: 1.? No MRI evidence of acute or subacute ischemic infarct or new brain metastatic disease.? 2.? Mild increase in size of enhancing metastatic mass in the left posterior parietal lobe measuring 1.2 x 1.6 cm, previously 1.4 x 1.2 cm. No obvious significant change of the vasogenic edema surrounding the enhancing metastatic mass in the left posterior parietal lobe.? 3.? Mild improvement of mucosal edema in the ethmoid sinuses. December 29, 2022 CT chest abdomen and pelvis: FINDINGS: CHEST Lungs are mildly hyperexpanded, with chronic interstitial changes and nonspecific pleural thickening in both hemithoraces. There is no suspicious noncalcified mass or nodule, organized infiltrate or effusion. Thyroid gland is unremarkable. Normal heart and pericardium.? There are calcifications of the coronary arteries. No suspicious axillary, mediastinal, or perihilar lymph nodes. . Normal unenhanced pulmonary arteries. ? Peripheral calcifications in the thoracic aorta without aneurysm. Bony structures show mild degenerative changes. ABDOMEN Liver is unremarkable aside from a simple cyst in the left lobe.? Normal gallbladder and extrahepatic biliary system.? Normal spleen.? Normal pancreas. Normal bilateral adrenal glands. There has been a previous left nephrectomy. No suspicious soft tissue mass or adenopathy in the left nephrectomy bed. Right kidney shows a stable concerning 3.95 x 3.71 cm mass in the lower pole. 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 Normal visualized stomach.? Normal small intestine.? Normal colon.? The appendix is visualized and appears normal. Appendix seen on coronal recon images 50 through 60 There is diffuse atherosclerotic calcification of the abdominal aorta with elongation and tortuosity, but without a demonstrated aneurysm.? Normal inferior vena cava.? Scattered subcentimeter in short axis dimension unchanged mesenteric and retroperitoneal lymph nodes. Stable left-sided spigelian hernia. Bony structures show degenerative change PELVIS Normal urinary bladder. There is no pelvic fluid.? There is no pelvic lymphadenopathy or mass lesion. Normal visualized pelvic arteries. Fat-containing right inguinal hernia.? There are diffuse degenerative changes of the visualized lumbar spine, and pelvis. IMPRESSION: There is a persistent suspicious solid mass in the lower pole of the right kidney measuring 3.95 x 3.71 cm which is anything is slightly increased in size since the previous study from August. 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 Stable simple hepatic cyst, no specific follow-up needed.? Chronic interstitial changes in both lung post without a superimposed acute pulmonary process? Degenerative bony changes? Stable-appearing left spigelian hernia January 21, 2023 brain MRI: IMPRESSION: Persistent partially hemorrhagic metastasis in the left parietal lobe with vasogenic edema which is relatively stable in size since prior study. No new lesions identified March 13, 2023 chest abdomen and pelvis CT: IMPRESSION: 1.? Slightly larger right posterior mediastinal lymph node of uncertain significance.? 2.? Stable solid 4.2 cm right renal mass. March 16, 2023 brain MRI: IMPRESSION: 1.? There is moderate interval enlargement and doubling in size of the mass in the posterior medial aspect and middle one third region of the left parietal lobe at the periphery of the splenium of the corpus callosum -the primary concern is for progression of the malignancy, however post radiation necrosis and flaring can be considered if there is history of recent radiation treatment to this region. MR spectroscopy can also be acquired to help in differentiating the processes. Clinical consult with neurosurgery is recommended. The left parietal mass has a thick enhancing rim with central necrosis and now measures 3.10 x 2.28 cm compared to the previous measurement of 1.2 x 1.6 cm. 2.? The surrounding vasogenic edema has slightly increased and is extended to the parasagittal and posterior aspect of the superior segment of the occipital lobe and has slightly increased in the anterior to posterior dimension and superior and posterior aspect of the left parietal lobe when compared to the prior study compared images series 6 on the old study and series 6 on the current study. 3.? There is also slightly more mass effect on the occipital horn of the left lateral ventricle compared to the prior study. Minimal midline shift of 1 to 2 mm is present. 4.? No hydrocephalus is seen. There is no transtentorial herniation. 5.? There are no visualized metastatic lesions in the remaining aspects of the cerebral hemispheres or in the posterior fossa April 16, 2023 MRI spectroscopy at [facility] Main campus: Impression: Spectroscopy and perfusion findings medial and dorsal aspects of the treated presumed left parietalmetastasis compatible with viable tumor with more extensive surrounding radiation necrosis. May 02, 2023 CTA; emergency room visit because of shortness of breath to rule out PE IMPRESSION: No evidence of acute pulmonary embolism. Small chronic nonocclusive right lower lobar pulmonary embolism. New 3 mm spiculated right lower lobe nodule and left lower lobe pulmonary nodules measuring up to 8 mm, suspicious for metastases. Progression of mild mediastinal and hilar lymphadenopathy. Mild pneumonitis or atypical pneumonia with mosaic attenuation pattern and groundglass opacities with mild septal thickening most confluent in the left upper lobe inferiorly. Chronic scarring in the right lung with pleural thickening. Enhancing right renal mass. Left nephrectomy. These images were reviewed by myself and radiology colleague (courtesy second opinion with questionbiopsy) and new right lower lobe nodule was not verifiedand by no means would be amenable to biopsy at the size. June 28, 2023 CT chest abdomen and pelvis: IMPRESSION: Stable probable hepatic cyst. Relatively stable right renal masses as noted. Status post left nephrectomy. Mild peripheral interstitial thickening in the lungs. Mild mediastinal adenopathy. October 05, 2023 CT chest abdomen and pelvis: IMPRESSION: 1. Improved bilateral hazy groundglass opacities/infiltrates. 2. Right middle lobe pleural-based density likely due to scarring and postoperative changes unchanged. 3. No evidence of new metastatic disease. 4. Status post left nephrectomy. 5. Left lateral ventricle hernia containing bowel loops and colon without evidence of obstruction unchanged. 6. Bilateral inguinal hernias containing fat. 7. No focal acute inflammatory process. January 13, 2024 chest abdomen and pelvis CT: IMPRESSION: 1. Chronic changes in the lungs unchanged. 2. Stable 7 mm left lower lobe nodule. 3. Stable right paratracheal adenopathy unchanged 4. No evidence of new metastatic disease. 5. Status post left nephrectomy. 6. Stable solid mass in the right kidney likely malignant until proven otherwise. 7. Additional nonacute changes as described above. 8. Further follow-up exam is needed. April 27, 2024 chest abdomen and pelvis CT: IMPRESSION: Stable examination. August 09, 2024 CT chest abdomen and pelvis: IMPRESSION: 1. Solid right-sided renal nodule suggests renal cell carcinoma. This appears unchanged since previous CT. 2. Status post left-sided nephrectomy. 3. Left flank ventral hernia containing bowel. 4. Left basilar airspace disease and/or atelectasis. 5. Unchanged appearance to right middle lobe subpleural nodule. January 10, 2025 CT chest abdomen and pelvis: IMPRESSION: 1. No CT evidence of acute pulmonary embolism. 2. Stable right renal mass suggestive of renal cell carcinoma. Exophytic cyst and lipoma/angiomyolipoma are also noted in the right kidney. 3. Nodular densities in the right middle and right lower lobe which may represent atypical infection versus neoplastic/metastatic disease. 4. Hepatic steatosis and hepatomegaly 5. Mild intrahepatic biliary dilatation 6. Mild splenomegaly January 18, 2025 sigmoidoscopy: SIGMOID COLON, BIOPSY: - Focal active colitis with acute cryptitis and crypt abscess ? see note. - Note: The focal and limited nature of the inflammation, plus lack of apoptosisor crypt distortion/drop ou,t and without increased eosinophils, favors focal active colitis due to bowel prep artifact or medication injury (eg: NSAIDs) or resolving/mild infection over immunotherapy-induced colitis. March 21, 2025 CT chest abdomen and pelvis: IMPRESSION: New right pleural effusion with infiltration in both lungs worse on the right side as described. Status post left nephrectomy. Persistent masses in the right kidney. March 22, 2025 EGD: Impressions : - Non-severe reflux esophagitis with no bleeding. - Erythematous mucosa in the gastric body. - Duodenal mucosal changes seen, diagnostic of celiac disease. Biopsied. Pathology: MICROSCOPIC DIAGNOSIS A. Small bowel, duodenum, biopsy: - Marked villous blunting with acute inflammation and patchy mild increase of intraepithelial lymphocytes Trichrome stain highlights patchy mild thickening of the subepithelial collagen table. The consensus opinion is: Collagenous colitis pattern of injury - see comment. Comment: There is atrophy of villi with increased intraepithelial lymphocytes, scattered surface neutrophilic inflammation and increased subepithelial collagen. This is consistent with collagenous colitis pattern of injury which is a non-specific pattern of injury. The differential diagnosis includes celiac disease and medication-related injury. While these features can be seen with immunocheckpoint inhibitor enteritis, there would usually be more prominent acute inflammation and increased apoptosis. Correlation with clinical impression, medication history, and serologic studies is recommended June 28, 2025 CT chest abdomen and pelvis: IMPRESSION: Interval improvement in the right pleural effusion as well as the previously seen nodular densitiesin both lung bases as described. Residual small right pleural effusion. Stable right renal masses. Diffuse bladder wall thickening. Prostatic enlargement with calcifications. Stable hernia in the posterior lateral aspect of the left midabdomen containing nondilated small bowel loops. Treatment summary and response: * 2005 left radical nephrectomy. * March 13, 2021 video-assisted thoracoscopy converted to right muscle-sparing thoracotomy with right lower lobe lobectomy, right upper lobe wedge, right middle lobe wedge and mediastinal lymph node dissection. * May 07, 2021 pembrolizumab plus axitinib for metastatic RCC. Axitinib discontinued May 2021 dueto hypertensive crisis. * Keytruda single agent May 07 ?July 30, 2021 (5 cycles) [place] but held in August 2021 due to ELANA. Resumed November 26, 2021 with no recurrent. Held again January 2025 when he developed acute colitis. To resume March 13, 2025 * Stereotactic brain radiation at [facility] October 28, 2022 a single fraction with 10 MV photons. Interval History Patient is here in the clinic accompanied by spouse for an evaluation anticipating he will begin c64 pembrolizumab. Rash involving upper back continues, mild intermittent. Using triamcinolone cream as prescribed by dermatology. Adherent to GF diet as advised by GI, no N/V. Otherwise feels well. Energy improved. Unsure of when next brain MRI with Dr. Acevedo is planned for. [facility] Medical History MRSA (methicillin resistant staph aureus) culture positive Acute infective gastroenteritis COPD exacerbation History of steroid therapy Low iron Seizures Shortness of breath on exertion History of pain when walking History of edema History of echocardiogram Cardiology follow-up encounter Cervical spinal cord injury Cervical stenosis of spine Numbness in right leg RUE numbness Diarrhea Hypokalemia Duodenal ulcer Anemia Diabetes mellitus, type 2 Hyperglycemia Hyponatremia Thrombocytopenia Pulmonary emboli COPD (chronic obstructive pulmonary disease) Imbalance Brain metastasis Pneumonia Sinus congestion Hx of radiation therapy Brain metastasis Frequent headaches Epistaxis Contact with or suspected exposure to other viral communicable disease Iron deficiency anemia due to chronic blood loss Encounter for immunotherapy Encounter for immunotherapy COVID-19 Nonrheumatic aortic (valve) stenosis with insufficiency Elevated troponin (05/15/21) Encephalopathy (05/15/21) Seizure (05/15/21) Metastatic renal cell carcinoma to lung Dyspnea Metastasis to adrenal gland Port-A-Cath in place Atherosclerotic heart disease of [place] coronary artery without angina pectoris Hyperlipidemia Wears glasses Wears dentures Gastric reflux Former smoker History of primary malignant neoplasm of left kidney 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 Skin cancer Abnormal colonoscopy Essential (primary) hypertension COPD (chronic obstructive pulmonary disease) Adenocarcinoma of right lung Surgical History H/O cervical discectomy History of cataract surgery History of lobectomy of lung History of nephrectomy, left History of coronary angioplasty (01/05/04) History of coronary artery stent placement (07/17/03) Family History Sister Diabetes CAD (coronary artery disease) Mother CVA (cerebral vascular accident) CAD (coronary artery disease) Lung cancer Father CAD (coronary artery disease) Brother CAD (coronary artery disease) Social History household members: spouse Smoking Status: Former smoker Tobacco: How many years used: 40 second hand exposure: No alcohol intake: current alcohol intake frequency: a few times a month Alcohol type: beer substance use type: does not use seatbelt use: always do you feel safe at home: Yes ROS ROS Narrative Negative except as documented in the interval HPI Intake Vital Signs 07/05/25 13:19 07/26/25 10:11 07/26/25 10:16 Height 5 ft 5 in 5 ft 5 in 5 ft 5 in Weight: 181 lb 184 lb BMI 30.1 30.6 BP 135/80 H 149/75 H Blood Pressure Location Lt brachial Lt brachial Position Sitting Sitting Respiration 18 18 Pulse 75 76 Pulse Source Monitor Monitor Temp 99.0 F 99.3 F H Temperature Source Temporal Artery Temporal Artery Pulse Oximetry (%) 95 96 Oxygen Delivery Method room air room air Intake Is patient in pain?: No Allergies No Known Allergies Allergy (Verified 07/26/25 10:15) Medications ?Medication ?Instructions ?Recorded ?Confirmed ?Type rosuvastatin 40 mg tablet (Crestor) 40 mg PO QHS YING STEROL 08/18/18 07/26/25 History carvedilol 25 mg tablet 25 mg PO BID blood pressure 04/30/21 07/26/25 History hydralazine 50 mg tablet 50 mg PO BID blood pressure 05/31/21 07/26/25 History apixaban 5 mg tablet (Eliquis) 2.5 mg (1/2 x 5 mg) PO BID #60 tabs 07/20/23 07/26/25 Rx amlodipine 10 mg tablet 10 mg PO DAILY #90 tabs 08/0907/26/25 Rx pembrolizumab 25 mg/mL intravenous 200 mg IV Q21D 04/0207/26/25 History solution (Keytruda) metoclopramide HCl 10 mg tablet 10 mg PO Q6H nausea an d vomiting 2 03/24/25 07/26/25 Rx (Reglan) weeks #56 tabs pantoprazole 40 mg tablet,delayed 40 mg PO DAILY 30 da ys #30 tabs 03/24/25 07/26/25 Rx release (Protonix) fluticasone fur. 100 mcg-umeclid 1 inh inhalation QDAY #60 ea 06/09/25 07/26/25 Rx 62.5 mcg-vilant 25 mcg inhalat.powder (Trelegy Ellipta) ipratropium 0.5 mg-albuterol 3 mg 3 ml inhalation Q4H PRN shortness 06/09/25 07/26/25 Rx (2.5 mg base)/3 mL nebulization of breath or wheezing #180 mL soln triamcinolone acetonide 0.1 % applic topical 06/09/25 07/26/25 History topical cream budesonide 3 mg 9 mg (3 x 3 mg) PO QDAY #90 ea 06/29/25 07/26/25 Rx capsule,delayed,extended release Have you fallen in the past year?: No Central Venous Access Central Venous Access: Yes Port/PICC: Port Laboratory Tests 07/26/25 09:52 WBC 5.4 Hgb 11.0 L Hct 34.3 L Plt Count 141 L Absolute Neuts (auto) 3.6 Sodium 139 Potassium 3.8 Chloride 109 H Carbon Dioxide 18.4 L BUN 17 Creatinine 0.99 Glucose 120 H Calcium 8.5 Phosphorus 3.3 Magnesium 2.0 Total Bilirubin 0.41 AST 17 ALT 12 Alkaline Phosphatase 48 Albumin 3.5 Exam Physical Exam Narrative ECOG 1 Const alert and no apparent distress General Appearance: comfortable HEENT normocephalic Mouth: oral and palatal mucosa normal and No thrush Eyes no scleral icterus General Eye: normal appearance of both eyes Neck full ROM, supple and no JVD Lymph Lymphatic: no lymphadenopathy noted Chest Chest Narrative: Port R IC area Chest: symmetrical chest wall rise and vascular access Resp normal respiratory effort and clear to auscultation bilaterally Cardio regular rate, regular rhythm, S1 normal heart sound, S2 normal heart sound and no murmurs GI soft to palpation, non-tender and non-distended; Negative for hepatosplenomegaly no CVA tenderness Back/Spine no thoracic nor lumbar tenderness Extremity no clubbing, cyanosis or edema Skin no rashes or lesions noted Neuro CN's II-XII intact bilaterally, moves all extremities and no focal motor deficits Speech: speech normal Gait (Neuro): normal gait, assistive device used cane and other Psych mental status grossly normal Coding Level of Care Code Off vis,est,level 4 Exam Problem Focused Diagnoses Cancer of right kidney C64.1 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 C64.9; C78.00 Malignant neoplasm metastatic to right adrenal gland C79.71 Laterality: right Regional lymph node metastasis present C77.9 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 C34.31 History of primary malignant neoplasm of left kidney Z85.528 Brain metastasis C79.31 Iron deficiency anemia due to chronic blood loss D50.0 Assessment and Plan Assessment and Plan (1) Cancer of right kidney: Status: Chronic (2) 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: Status: Chronic (3) 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 Qualifiers: Laterality: right Qualified Code(s): C79.71 - Secondary malignant neoplasm of right adrenal gland (4) 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 Metastatic renal cell cancer incidentally found in the right lower lobe lungresection March 12, 2021 multiple nodules. Patient is status post left nephrectomy in August 2006 for a 6.5 cm clear-cell renal cancer confined to the kidney withno lymphovascular invasion and most likely cured by the radical surgery. Patient has an incidentally (asymptomatic, not PET avid) found at least 2 solid nodules in the right kidney most consistent with primary renal cancer and is themost likely source for the metastatic RCC pathologically confirmed and the rightlower lobe of the lung in March 2021. Patient is in the intermediate risk group based on the international Metastatic Renal Cell Carcinoma Database Consortium criteria since he presents with metastatic disease de corry. Patient started systemic therapy with combination pembrolizumab and axitinib May 07, 2021. He developed a hypertensive crisis ontop of pre-existing hypertension requiring hospitalization (TIA and seizure). Axitinib has been on hold since. He was seen by cardiology (Dr. Sandoval), blood pressure medications were adjusted with better blood pressure control. Although Dr. Sandoval did not feel that axitinib is contraindicated once his blood pressure is under good control, patient is hesitant about resuming therapy with axitinib. He continued to tolerate Keytruda with no grade 3 or 4 toxicities April through August 2021 (so farreported subjective fatigue and noted a rash over the uppertrunk that responded to topical [id number] preparation). Keytruda held August 2021 due to acute kidney injury cause unclear (baseline creatinine 1.0, peak 1.9). 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 His creatinine recovered to baseline by November 2021. * Imaging (no contrast was given) September 2021 shows a marked improvement in the mass involving the right kidney and right adrenal gland. There are stable abnormalities in the chest that are nonspecific. * Imaging (no contrast) November 2021 during an acute episode of abdominal pain suggested slight worsening of the mass involving the right kidney but he had been off therapy for a while. Resumed Keytruda November 2021, recurrent rash manageable with topical steroids is likely a side effect. Slight increase in creatinine (less than 0.3 mg per DL, not mounting to grade 1 toxicity) also likely side effect of Keytruda. * Imaging August 2022 shows if any subtle minimal enlargement in the mass in the right kidney. No other evidence of progression of disease elsewhere. 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 * December 2022 had some recurrent headache and brain MRI showed if any mild increase in the size of the mass in the left posterior parietal lobe with surrounding edema improved with steroids. 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 * Imaging of the chest abdomen and pelvis most recent is June 2025 shows overall stable disease . January 2025 was hospitalized with acute diarrheal illness, was started on oral steroids for provisional diagnosis of checkpoint inhibitor induced gastroenteritis, underwent sigmoidoscopy, pathology came back favoring an infectious etiology over immune mediated enteritis. Weaned off steroids over February 2025 to resume pembrolizumab with no recurrence of diarrhea. 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 Was treated with high-dose steroids gradually weaning of to be replaced with budesonide and was placed on agluten-free diet; improved 2. Non-small cell lung cancer, adenocarcinoma poorly differentiated G3 stage IIB(T3, N1, M0) statuspost R0 resection March 12, 2021. Tumor is EGFR negative (exons 18, 19, 20 and 21) Adjuvant systemic chemotherapy would be advisable if the patient did not have anactive ongoing 2nd malignancy that is not chemo sensitive. However immune therapy with PDL 1 inhibitor as part of the standard treatment for metastatic non-small cell lung cancer at this time and its role in adjuvant setting is being investigated and is conceivably have some effectiveness. 3. 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 4. Anemia: Of iron deficiency due to chronic GI blood loss (peptic ulcer disease) and cancer cancerits therapy. His anemia did not respond to oral iron vitamin C supplement but improved following IV iron, to relapse again by February 2023 Comorbid conditions: Smoker till February 2021, emphysema (pathology of resection 2020), hiatus hernia. 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 Degenerative spine disease. Plan: 1-continue pembrolizumab cycle 64 today. 2-VEGF inhibitor targeted therapy permanently discontinued due to prior hypertensive crisis complicated with seizures from which he recovered. To consider mtor inhibitor for subsequent therapy in thefuture. 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 Request last OV note from Dr. Acevedo and [facility]from [facility]. 4-elective imaging every 4 months next to schedule October 2025. 5-IV iron as needed for recurrent iron deficiency anemia from acute and chronic GI blood loss (peptic ulcer disease). 6-advised continue systemic anticoagulation with Eliquis for incidental finding of pulmonary embolism in April 2023 at reduced dose of 2.5 Mg twice daily. There have been occasions when he stopped it by his own initiative then resumes back. 7-continue follow-up with GI regarding celiac disease, cholelithiasis to minimize long-term use of steroids because of potential counteracting the effectof PD-L1 inhibitor therapy by causing immune suppression. Clinical Quality Measures Falls Risk Screening/Assistive Devices Have you fallen in the past year?: No 07/26/25 1058 h CHARGE OUT CLERK CHARGE OUT CLERK-C> Date _ Verónica Meadows NP, NP-C Cosigner Signature: Date (if applicable) CC: ~ [facility] [id number] Progress note Author Verónica Meadows [facility] Services Note Date/Time July 26, 2025 10:58am [facility] Cancer [address] [place] [address] OFFICE VISIT Date of Service: 07/26/25 1009 MR#: [id number] Acct: [id number] Name: KENN ARSHAD Rep #: [id number] : 1955 From: Verónica Leavitt ch, NP CHARGE OUT CLERK-C Age/Sex: 69/M Location[place] [facility] [place] Status: Signed HPI Subjective Date of Service 07/26/25 Chief Complaint Metastatic kidney cancer on treatment History of Present Illness Patient is a 69-year-old male smoker till February 2021 who in January 28, 2021 underwent a lung cancer screening CT scan: Showed a spiculated partially cavitary mass within the right lower lobe measuring up to 5.3 cm in maximum diameter with right hilar lymphadenopathy. February 14, 2021 PET/CT showed intensely avid right lower lobe mass consistent withmalignancy with FDG accumulation within right hilar lymph node consistent with ramon metastases and no evidence of distant metastatic disease. Small noncalcified nodules at the periphery of the right lung base with no appreciableFDG accumulation were noted. February 20, 2021 right lower lobe lung guided biopsy showed moderately to poorly differentiated adenocarcinoma of lung primary. March 08, 2021 brain MRI showed no abnormal intracranial enhancement to suggest intracranial metastases. March 13, 2021 patient underwent right video-assisted thoracoscopy converted to right muscle-sparing thoracotomy with right lower lobe lobectomy, right upper lobe wedge, right middle lobe wedge and mediastinal lymph node dissection by : Pathology: A. Right upper lobe wedge resection negative for malignancy. B. Right middle lobe wedge resection negative for malignancy. C. Lymph node right pulmonary ligament negative for metastatic carcinoma. D. Lymph node 11 R right middle negative for malignancy. E. Right lower lobe lobectomy multifocal adenocarcinoma grade 3. Incidentally found multiple metastatic nodules of clear-cell renal cell carcinoma and 1 of 5 peribronchial lymph nodes positive for metastatic carcinoma. F. Lymph node 11 R anterior 1 lymph node positive for metastatic carcinoma. G. Lymph node 11 R posterior negative for metastatic carcinoma. H. Lymph node level 7 1 lymph node negative for metastatic carcinoma I. Lymph node level 7 1 lymph node negative for metastatic carcinoma. J. Lymph node level 4R lower paratracheal negative for metastatic carcinoma K. Lymph node right upper paratracheal negative for metastatic carcinoma. Pathologic staging T3N1. EGFR mutation negative. Patient's past medical history is notable for being status post left total nephrectomy in 2005 for kidney cancer. He has been a smoker most of his adult life quit in February 2021 and consumes an average 2 beers per day. April 18, 2021 renal ultrasound: IMPRESSION: Status post left nephrectomy. 2. Hypoechoic solid nodules seen in the right kidney as described. Neoplastic process should be ruled out. Correlation with a CT scan is recommended for further evaluation. 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 May 02, 2021 CT abdomen and pelvis: IMPRESSION: 1. Small right pleural effusion. 2. Solid enhancing masses of the right kidney and right adrenal gland worrisome for metastatic renal cell carcinoma. No retroperitoneal lymphadenopathy. 3. Large left medially in hernia containing a segment of the descending colon and small bowel without bowel obstruction. September 25, 2021 CT chest abdomen and pelvis: IMPRESSION: Status post left nephrectomy. Interval improvement in the previously seen right adrenal mass. The remainder of the examination is unchanged. June 13, 2021 CT abdomen and pelvis: IMPRESSION: 1. Reidentification of large lobular mass of the right adrenal gland measuring at least 4 cm, suspicious for metastatic disease. Without contrast this is poorly evaluated but on the prior study with contrast a heterogeneous mass was visualized. 2. Reidentification of a rounded partially exophytic mass in the medial aspect of the midpole of the right kidney measuring at least 2.56 cm also demonstrated enhancement on the prior study which is suspicious for malignancy. September 25, 2021 CT chest abdomen and pelvis: IMPRESSION: Status post left nephrectomy. Interval improvement in the previously seen right adrenal mass. The remainder of the examination is unchanged. December 03, 2021 CT abdomen and pelvis, for an episode of acute abdominal pain: IMPRESSION: No acute findings. Suspect slight interval enlargement of the lower pole mass in the right kidney compatible with renal cell carcinoma, not well evaluated without IV contrast. Left flank hernia containing large and small bowel loops, not fully visible. No evidence of obstruction. March 04, 2022 CT chest abdomen and pelvis: IMPRESSION: 1. 3.7 x 3.2 x 3.4 cm mass concerning for neoplasm in the mid to lower right kidney is grossly stable from 12/03/2021. 2. No metastatic disease in the remainder of the exam. May 27, 2022 CT chest abdomen and pelvis: IMPRESSION: Stable examination. Exophytic soft tissue mass in the posterior medial aspect of the mid to lower aspect of the right kidney. Stable hyperplasia of the right adrenal gland. September 08, 2022 CT chest abdomen and pelvis: IMPRESSION: Stable CT scan of the thorax. Slight enlargement of the previously seen lobular solid mass in the medial mid lower portions of the right kidney. October 14, 2022 brain MRI: IMPRESSION: 1.6 cm enhancing mass in the left posterior parietal lobe containing old hemorrhage concerning for hemorrhagic metastasis.? Large amount of surrounding edema with partial effacement of the left lateral ventricle. Paranasal sinus inflammatory disease. Chronic involutional white matter changes. December 16, 2022 brain MRI: IMPRESSION: 1.? No MRI evidence of acute or subacute ischemic infarct or new brain metastatic disease.? 2.? Mild increase in size of enhancing metastatic mass in the left posterior parietal lobe measuring 1.2 x 1.6 cm, previously 1.4 x 1.2 cm. No obvious significant change of the vasogenic edema surrounding the enhancing metastatic mass in the left posterior parietal lobe.? 3.? Mild improvement of mucosal edema in the ethmoid sinuses. December 29, 2022 CT chest abdomen and pelvis: FINDINGS: CHEST Lungs are mildly hyperexpanded, with chronic interstitial changes and nonspecific pleural thickening in both hemithoraces. There is no suspicious noncalcified mass or nodule, organized infiltrate or effusion. Thyroid gland is unremarkable. Normal heart and pericardium.? There are calcifications of the coronary arteries. No suspicious axillary, mediastinal, or perihilar lymph nodes. . Normal unenhanced pulmonary arteries. ? Peripheral calcifications in the thoracic aorta without aneurysm. Bony structures show mild degenerative changes. ABDOMEN Liver is unremarkable aside from a simple cyst in the left lobe.? Normal gallbladder and extrahepatic biliary system.? Normal spleen.? Normal pancreas. Normal bilateral adrenal glands. There has been a previous left nephrectomy. No suspicious soft tissue mass or adenopathy in the left nephrectomy bed. Right kidney shows a stable concerning 3.95 x 3.71 cm mass in the lower pole. 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 Normal visualized stomach.? Normal small intestine.? Normal colon.? The appendix is visualized and appears normal. Appendix seen on coronal recon images 50 through 60 There is diffuse atherosclerotic calcification of the abdominal aorta with elongation and tortuosity, but without a demonstrated aneurysm.? Normal inferior vena cava.? Scattered subcentimeter in short axis dimension unchanged mesenteric and retroperitoneal lymph nodes. Stable left-sided spigelian hernia. Bony structures show degenerative change PELVIS Normal urinary bladder. There is no pelvic fluid.? There is no pelvic lymphadenopathy or mass lesion. Normal visualized pelvic arteries. Fat-containing right inguinal hernia.? There are diffuse degenerative changes of the visualized lumbar spine, and pelvis. IMPRESSION: There is a persistent suspicious solid mass in the lower pole of the right kidney measuring 3.95 x 3.71 cm which is anything is slightly increased in size since the previous study from August. 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 Stable simple hepatic cyst, no specific follow-up needed.? Chronic interstitial changes in both lung post without a superimposed acute pulmonary process? Degenerative bony changes? Stable-appearing left spigelian hernia January 21, 2023 brain MRI: IMPRESSION: Persistent partially hemorrhagic metastasis in the left parietal lobe with vasogenic edema which is relatively stable in size since prior study. No new lesions identified March 13, 2023 chest abdomen and pelvis CT: IMPRESSION: 1.? Slightly larger right posterior mediastinal lymph node of uncertain significance.? 2.? Stable solid 4.2 cm right renal mass. March 16, 2023 brain MRI: IMPRESSION: 1.? There is moderate interval enlargement and doubling in size of the mass in the posterior medial aspect and middle one third region of the left parietal lobe at the periphery of the splenium of the corpus callosum -the primary concern is for progression of the malignancy, however post radiation necrosis and flaring can be considered if there is history of recent radiation treatment to this region. MR spectroscopy can also be acquired to help in differentiating the processes. Clinical consult with neurosurgery is recommended. The left parietal mass has a thick enhancing rim with central necrosis and now measures 3.10 x 2.28 cm compared to the previous measurement of 1.2 x 1.6 cm. 2.? The surrounding vasogenic edema has slightly increased and is extended to the parasagittal and posterior aspect of the superior segment of the occipital lobe and has slightly increased in the anterior to posterior dimension and superior and posterior aspect of the left parietal lobe when compared to the prior study compared images series 6 on the old study and series 6 on the current study. 3.? There is also slightly more mass effect on the occipital horn of the left lateral ventricle compared to the prior study. Minimal midline shift of 1 to 2 mm is present. 4.? No hydrocephalus is seen. There is no transtentorial herniation. 5.? There are no visualized metastatic lesions in the remaining aspects of the cerebral hemispheres or in the posterior fossa April 16, 2023 MRI spectroscopy at [facility] Main campus: Impression: Spectroscopy and perfusion findings medial and dorsal aspects of the treated presumed left parietal metastasis compatible with viable tumor with more extensive surrounding radiation necrosis. May 02, 2023 CTA; emergency room visit because of shortness of breath to rule out PE IMPRESSION: No evidence of acute pulmonary embolism. Small chronic nonocclusive right lower lobar pulmonary embolism. New 3 mm spiculated right lower lobe nodule and left lower lobe pulmonary nodules measuring up to 8 mm, suspicious for metastases. Progression of mild mediastinal and hilar lymphadenopathy. Mild pneumonitis or atypical pneumonia with mosaic attenuation pattern and groundglass opacities with mild septal thickening most confluent in the left upper lobe inferiorly. Chronic scarring in the right lung with pleural thickening. Enhancing right renal mass. Left nephrectomy. These images were reviewed by myself and radiology colleague (courtesy second opinion with question biopsy) and new right lower lobe nodule was not verifiedand by no means would be amenable to biopsy at the size. June 28, 2023 CT chest abdomen and pelvis: IMPRESSION: Stable probable hepatic cyst. Relatively stable right renal masses as noted. Status post left nephrectomy. Mild peripheral interstitial thickening in the lungs. Mild mediastinal adenopathy. October 05, 2023 CT chest abdomen and pelvis: IMPRESSION: 1. Improved bilateral hazy groundglass opacities/infiltrates. 2. Right middle lobe pleural-based density likely due to scarring and postoperative changes unchanged. 3. No evidence of new metastatic disease. 4. Status post left nephrectomy. 5. Left lateral ventricle hernia containing bowel loops and colon without evidence of obstruction unchanged. 6. Bilateral inguinal hernias containing fat. 7. No focal acute inflammatory process. January 13, 2024 chest abdomen and pelvis CT: IMPRESSION: 1. Chronic changes in the lungs unchanged. 2. Stable 7 mm left lower lobe nodule. 3. Stable right paratracheal adenopathy unchanged 4. No evidence of new metastatic disease. 5. Status post left nephrectomy. 6. Stable solid mass in the right kidney likely malignant until proven otherwise. 7. Additional nonacute changes as described above. 8. Further follow-up exam is needed. April 27, 2024 chest abdomen and pelvis CT: IMPRESSION: Stable examination. August 09, 2024 CT chest abdomen and pelvis: IMPRESSION: 1. Solid right-sided renal nodule suggests renal cell carcinoma. This appears unchanged since previous CT. 2. Status post left-sided nephrectomy. 3. Left flank ventral hernia containing bowel. 4. Left basilar airspace disease and/or atelectasis. 5. Unchanged appearance to right middle lobe subpleural nodule. January 10, 2025 CT chest abdomen and pelvis: IMPRESSION: 1. No CT evidence of acute pulmonary embolism. 2. Stable right renal mass suggestive of renal cell carcinoma. Exophytic cyst and lipoma/angiomyolipoma are also noted in the right kidney. 3. Nodular densities in the right middle and right lower lobe which may represent atypical infection versus neoplastic/metastatic disease. 4. Hepatic steatosis and hepatomegaly 5. Mild intrahepatic biliary dilatation 6. Mild splenomegaly January 18, 2025 sigmoidoscopy: SIGMOID COLON, BIOPSY: - Focal active colitis with acute cryptitis and crypt abscess ? see note. - Note: The focal and limited nature of the inflammation, plus lack of apoptosisor crypt distortion/drop ou,t and without increased eosinophils, favors focal active colitis due to bowel prep artifact or medication injury (eg: NSAIDs) or resolving/mild infection over immunotherapy-induced colitis. March 21, 2025 CT chest abdomen and pelvis: IMPRESSION: New right pleural effusion with infiltration in both lungs worse on the right side as described. Status post left nephrectomy. Persistent masses in the right kidney. March 22, 2025 EGD: Impressions : - Non-severe reflux esophagitis with no bleeding. - Erythematous mucosa in the gastric body. - Duodenal mucosal changes seen, diagnostic of celiac disease. Biopsied. Pathology: MICROSCOPIC DIAGNOSIS A. Small bowel, duodenum, biopsy: - Marked villous blunting with acute inflammation and patchy mild increase of intraepithelial lymphocytes Trichrome stain highlights patchy mild thickening of the subepithelial collagen table. The consensus opinion is: Collagenous colitis pattern of injury - see comment. Comment: There is atrophy of villi with increased intraepithelial lymphocytes, scattered surface neutrophilic inflammation and increased subepithelial collagen. This is consistent with collagenous colitis pattern of injury which is a non-specific pattern of injury. The differential diagnosis includes celiac disease and medication-related injury. While these features can be seen with immunocheckpoint inhibitor enteritis, there would usually be more prominent acute inflammation and increased apoptosis. Correlation with clinical impression, medication history, and serologic studies is recommended June 28, 2025 CT chest abdomen and pelvis: IMPRESSION: Interval improvement in the right pleural effusion as well as the previously seen nodular densities in both lung bases as described. Residual small right pleural effusion. Stable right renal masses. Diffuse bladder wall thickening. Prostatic enlargement with calcifications. Stable hernia in the posterior lateral aspect of the left midabdomen containing nondilated small bowel loops. Treatment summary and response: * 2005 left radical nephrectomy. * March 13, 2021 video-assisted thoracoscopy converted to right muscle-sparing thoracotomy with right lower lobe lobectomy, right upper lobe wedge, right middle lobe wedge and mediastinal lymph node dissection. * May 07, 2021 pembrolizumab plus axitinib for metastatic RCC. Axitinib discontinued May 2021 due to hypertensive crisis. * Keytruda single agent May 07 ?July 30, 2021 (5 cycles) [place] but held in August 2021 due to ELANA. Resumed November 26, 2021 with no recurrent. Held again January 2025 when he developed acute colitis. To resume March 13, 2025 * Stereotactic brain radiation at [facility] October 28, 2022 a single fraction with 10 MV photons. Interval History Patient is here in the clinic accompanied by spouse for an evaluation anticipating he will begin c64 pembrolizumab. Rash involving upper back continues, mild intermittent. Using triamcinolone cream as prescribed by dermatology. Adherent to GF diet as advised by GI, no N/V. Otherwise feels well. Energy improved. Unsure of when next brain MRI with Dr. Acevedo is planned for. [facility] Medical History MRSA (methicillin resistant staph aureus) culture positive Acute infective gastroenteritis COPD exacerbation History of steroid therapy Low iron Seizures Shortness of breath on exertion History of pain when walking History of edema History of echocardiogram Cardiology follow-up encounter Cervical spinal cord injury Cervical stenosis of spine Numbness in right leg RUE numbness Diarrhea Hypokalemia Duodenal ulcer Anemia Diabetes mellitus, type 2 Hyperglycemia Hyponatremia Thrombocytopenia Pulmonary emboli COPD (chronic obstructive pulmonary disease) Imbalance Brain metastasis Pneumonia Sinus congestion Hx of radiation therapy Brain metastasis Frequent headaches Epistaxis Contact with or suspected exposure to other viral communicable disease Iron deficiency anemia due to chronic blood loss Encounter for immunotherapy Encounter for immunotherapy COVID-19 Nonrheumatic aortic (valve) stenosis with insufficiency Elevated troponin (05/15/21) Encephalopathy (05/15/21) Seizure (05/15/21) Metastatic renal cell carcinoma to lung Dyspnea Metastasis to adrenal gland Port-A-Cath in place Atherosclerotic heart disease of [place] coronary artery without angina pectoris Hyperlipidemia Wears glasses Wears dentures Gastric reflux Former smoker History of primary malignant neoplasm of left kidney 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 Skin cancer Abnormal colonoscopy Essential (primary) hypertension COPD (chronic obstructive pulmonary disease) Adenocarcinoma of right lung Surgical History H/O cervical discectomy History of cataract surgery History of lobectomy of lung History of nephrectomy, left History of coronary angioplasty (01/05/04) History of coronary artery stent placement (07/17/03) Family History Sister Diabetes CAD (coronary artery disease) Mother CVA (cerebral vascular accident) CAD (coronary artery disease) Lung cancer Father CAD (coronary artery disease) Brother CAD (coronary artery disease) Social History household members: spouse Smoking Status: Former smoker Tobacco: How many years used: 40 second hand exposure: No alcohol intake: current alcohol intake frequency: a few times a month Alcohol type: beer substance use type: does not use seatbelt use: always do you feel safe at home: Yes ROS ROS Narrative Negative except as documented in the interval HPI Intake Vital Signs 07/05/25 13:19 07/26/25 10:11 07/26/25 10:16 Height 5 ft 5 in 5 ft 5 in 5 ft 5 in Weight: 181 lb 184 lb BMI 30.1 30.6 BP 135/80 H 149/75 H Blood Pressure Location Lt brachial Lt brachial Position Sitting Sitting Respiration 18 18 Pulse 75 76 Pulse Source Monitor Monitor Temp 99.0 F 99.3 F H Temperature Source Temporal Artery Temporal Artery Pulse Oximetry (%) 95 96 Oxygen Delivery Method room air room air Intake Is patient in pain?: No Allergies No Known Allergies Allergy (Verified 07/26/25 10:15) Medications ?Medication ?Instructions ?Recorded ?Confirmed ?Type rosuvastatin 40 mg tablet (Crestor) 40 mg PO QHS YING STEROL 08/18/18 07/26/25 History carvedilol 25 mg tablet 25 mg PO BID blood pressure 04/30/21 07/26/25 History hydralazine 50 mg tablet 50 mg PO BID blood pressure 05/31/21 07/26/25 History apixaban 5 mg tablet (Eliquis) 2.5 mg (1/2 x 5 mg) PO BID #60 tabs 07/20/23 07/26/25 Rx amlodipine 10 mg tablet 10 mg PO DAILY #90 tabs 08/0907/26/25 Rx pembrolizumab 25 mg/mL intravenous 200 mg IV Q21D 04/0207/26/25 History solution (Keytruda) metoclopramide HCl 10 mg tablet 10 mg PO Q6H nausea an d vomiting 2 03/24/25 07/26/25 Rx (Reglan) weeks #56 tabs pantoprazole 40 mg tablet,delayed 40 mg PO DAILY 30 da ys #30 tabs 03/24/25 07/26/25 Rx release (Protonix) fluticasone fur. 100 mcg-umeclid 1 inh inhalation QDAY #60 ea 06/09/25 07/26/25 Rx 62.5 mcg-vilant 25 mcg inhalat.powder (Trelegy Ellipta) ipratropium 0.5 mg-albuterol 3 mg 3 ml inhalation Q4H PRN shortness 06/09/25 07/26/25 Rx (2.5 mg base)/3 mL nebulization of breath or wheezing #180 mL soln triamcinolone acetonide 0.1 % applic topical 06/09/25 07/26/25 History topical cream budesonide 3 mg 9 mg (3 x 3 mg) PO QDAY #90 ea 06/29/25 07/26/25 Rx capsule,delayed,extended release Have you fallen in the past year?: No Central Venous Access Central Venous Access: Yes Port/PICC: Port Laboratory Tests 07/26/25 09:52 WBC 5.4 Hgb 11.0 L Hct 34.3 L Plt Count 141 L Absolute Neuts (auto) 3.6 Sodium 139 Potassium 3.8 Chloride 109 H Carbon Dioxide 18.4 L BUN 17 Creatinine 0.99 Glucose 120 H Calcium 8.5 Phosphorus 3.3 Magnesium 2.0 Total Bilirubin 0.41 AST 17 ALT 12 Alkaline Phosphatase 48 Albumin 3.5 Exam Physical Exam Narrative ECOG 1 Const alert and no apparent distress General Appearance: comfortable HEENT normocephalic Mouth: oral and palatal mucosa normal and No thrush Eyes no scleral icterus General Eye: normal appearance of both eyes Neck full ROM, supple and no JVD Lymph Lymphatic: no lymphadenopathy noted Chest Chest Narrative: Port R IC area Chest: symmetrical chest wall rise and vascular access Resp normal respiratory effort and clear to auscultation bilaterally Cardio regular rate, regular rhythm, S1 normal heart sound, S2 normal heart sound and no murmurs GI soft to palpation, non-tender and non-distended; Negative for hepatosplenomegaly no CVA tenderness Back/Spine no thoracic nor lumbar tenderness Extremity no clubbing, cyanosis or edema Skin no rashes or lesions noted Neuro CN's II-XII intact bilaterally, moves all extremities and no focal motor deficits Speech: speech normal Gait (Neuro): normal gait, assistive device used cane and other Psych mental status grossly normal Coding Level of Care Code Off vis,est,level 4 Exam Problem Focused Diagnoses Cancer of right kidney C64.1 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 C64.9; C78.00 Malignant neoplasm metastatic to right adrenal gland C79.71 Laterality: right Regional lymph node metastasis present C77.9 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 C34.31 History of primary malignant neoplasm of left kidney Z85.528 Brain metastasis C79.31 Iron deficiency anemia due to chronic blood loss D50.0 Assessment and Plan Assessment and Plan (1) Cancer of right kidney: Status: Chronic (2) 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: Status: Chronic (3) 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 Qualifiers: Laterality: right Qualified Code(s): C79.71 - Secondary malignant neoplasm of right adrenal gland (4) 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 Metastatic renal cell cancer incidentally found in the right lower lobe lungresection March 12, 2021 multiple nodules. Patient is status post left nephrectomy in August 2006 for a 6.5 cm clear-cell renal cancer confined to the kidney withno lymphovascular invasion and most likely cured by the radical surgery. Patient has an incidentally (asymptomatic, not PET avid) found at least 2 solid nodules in the right kidney most consistent with primary renal cancer and is themost likely source for the metastatic RCC pathologically confirmed and the rightlower lobe of the lung in March 2021. Patient is in the intermediate risk group based on the international Metastatic Renal Cell Carcinoma Database Consortium criteria since he presents with metastatic disease de corry. Patient started systemic therapy with combination pembrolizumab and axitinib May 07, 2021. He developed a hypertensive crisis ontop of pre-existing hypertension requiring hospitalization (TIA and seizure). Axitinib has been on hold since. He was seen by cardiology (Dr. Sandoval), blood pressure medications were adjusted with better blood pressure control. Although Dr. Sandoval did not feel that axitinib is contraindicated once his blood pressure is under good control, patient is hesitant about resuming therapy with axitinib. He continued to tolerate Keytruda with no grade 3 or 4 toxicities April through August 2021 (so far reported subjective fatigue and noted a rash over the uppertrunk that responded to topical [id number] preparation). Keytruda held August 2021 due to acute kidney injury cause unclear (baseline creatinine 1.0, peak 1.9). 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 His creatinine recovered to baseline by November 2021. * Imaging (no contrast was given) September 2021 shows a marked improvement in the mass involving the right kidney and right adrenal gland. There are stable abnormalities in the chest that are nonspecific. * Imaging (no contrast) November 2021 during an acute episode of abdominal pain suggested slight worsening of the mass involving the right kidney but he had been off therapy for a while. Resumed Keytruda November 2021, recurrent rash manageable with topical steroids is likely a side effect. Slight increase in creatinine (less than 0.3 mg per DL, not mounting to grade 1 toxicity) also likely side effect of Keytruda. * Imaging August 2022 shows if any subtle minimal enlargement in the mass in the right kidney. No other evidence of progression of disease elsewhere. 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 * December 2022 had some recurrent headache and brain MRI showed if any mild increase in the size of the mass in the left posterior parietal lobe with surrounding edema improved with steroids. 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 * Imaging of the chest abdomen and pelvis most recent is June 2025 shows overall stable disease . January 2025 was hospitalized with acute diarrheal illness, was started on oral steroids for provisional diagnosis of checkpoint inhibitor induced gastroenteritis, underwent sigmoidoscopy, pathology came back favoring an infectious etiology over immune mediated enteritis. Weaned off steroids over February 2025 to resume pembrolizumab with no recurrence of diarrhea. 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 Was treated with high-dose steroids gradually weaning of to be replaced with budesonide and was placed on agluten-free diet; improved 2. Non-small cell lung cancer, adenocarcinoma poorly differentiated G3 stage IIB(T3, N1, M0) status post R0 resection March 12, 2021. Tumor is EGFR negative (exons 18, 19, 20 and 21) Adjuvant systemic chemotherapy would be advisable if the patient did not have anactive ongoing 2nd malignancy that is not chemo sensitive. However immune therapy with PDL 1 inhibitor as part of the standard treatment for metastatic non-small cell lung cancer at this time and its role in adjuvant setting is being investigated and is conceivably have some effectiveness. 3. 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 4. Anemia: Of iron deficiency due to chronic GI blood loss (peptic ulcer disease) and cancer cancer its therapy. His anemia did not respond to oral iron vitamin C supplement but improved following IV iron, to relapse again by February 2023 Comorbid conditions: Smoker till February 2021, emphysema (pathology of resection 2020), hiatus hernia. 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 Degenerative spine disease. Plan: 1-continue pembrolizumab cycle 64 today. 2-VEGF inhibitor targeted therapy permanently discontinued due to prior hypertensive crisis complicated with seizures from which he recovered. To consider mtor inhibitor for subsequent therapy in the future. 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 Request last OV note from Dr. Acevedo and MRI brainfrom [facility]. 4-elective imaging every 4 months next to schedule October 2025. 5-IV iron as needed for recurrent iron deficiency anemia from acute and chronic GI blood loss (peptic ulcer disease). 6-advised continue systemic anticoagulation with Eliquis for incidental finding of pulmonary embolism in April 2023 at reduced dose of 2.5 Mg twice daily. There have been occasions when he stopped it by his own initiative then resumes back. 7-continue follow-up with GI regarding celiac disease, cholelithiasis to minimize long-term use of steroids because of potential counteracting the effectof PD-L1 inhibitor therapy by causing immune suppression. Clinical Quality Measures Falls Risk Screening/Assistive Devices Have you fallen in the past year?: No 07/26/25 1058 <Electronically signed by Verónica castro NP, NP-C> Date _ Verónica Meadows NP, NP-C Cosigner Signature: Date (if applicable) CC: ~ [facility] Work Phone: 1(403) 535-793608-22-2025 Radiology Diagnostic study [facility]08-07-2025 Progress note Author Verónica Meadows [facility] Note Date/Time June 15, 2025 12: 07pm [facility] [place] [address] OFFICE VISIT Date of Service: 06/15/25 1111 MR#: [id number] Acct: [id number] Name: KENN ARSHAD Rep #: [id number] : 1955 From: Verónica Leavitt ch CHARGE OUT CLERK CHARGE OUT CLERK-C Age/Sex: 69/M Location: [facility] Status: Signed HPI Subjective Date of Service 06/15/25 Chief Complaint Metastatic kidney cancer on treatment History of Present Illness Patient is a 69-year-old male smoker till February 2021 who in January 28, 2021 underwent a lung cancer screening CT scan: Showed a spiculated partially cavitary mass within the right lower lobe measuring up to 5.3 cm in maximum diameter with right hilar lymphadenopathy. February 14, 2021 PET/CT showed intensely avid right lower lobe mass consistent withmalignancy with FDG accumulation within right hilar lymph node consistent with ramon metastases and no evidence of distant metastatic disease. Small noncalcified nodules at the periphery of the right lung base with no appreciableFDG accumulation were noted. February 20, 2021 right lower lobe lung guided biopsy showed moderately to poorly differentiated adenocarcinoma of lung primary. March 08, 2021 brain MRI showed no abnormal intracranial enhancement to suggest intracranial metastases. March 13, 2021 patient underwent right video-assisted thoracoscopy converted to right muscle-sparing thoracotomy with right lower lobe lobectomy, right upper lobe wedge, right middle lobe wedge and mediastinal lymph node dissection by : Pathology: A. Right upper lobe wedge resection negative for malignancy. B. Right middle lobe wedge resection negative for malignancy. C. Lymph node right pulmonary ligament negative for metastatic carcinoma. D. Lymph node 11 R right middle negative for malignancy. E. Right lower lobe lobectomy multifocal adenocarcinoma grade 3. Incidentally found multiple metastatic nodules of clear-cell renal cell carcinoma and 1 of 5 peribronchial lymph nodes positive for metastatic carcinoma. F. Lymph node 11 R anterior 1 lymph node positive for metastatic carcinoma. G. Lymph node 11 R posterior negative for metastatic carcinoma. H. Lymph node level 7 1 lymph node negative for metastatic carcinoma I. Lymph node level 7 1 lymph node negative for metastatic carcinoma. J. Lymph node level 4R lower paratracheal negative for metastatic carcinoma K. Lymph node right upper paratracheal negative for metastatic carcinoma. Pathologic staging T3N1. EGFR mutation negative. Patient's past medical history is notable for being status post left total nephrectomy in 2006 for kidney cancer. He has been a smoker most of his adult life quit in February 2021 and consumes an average 2 beers per day. April 18, 2021 renal ultrasound: IMPRESSION: Status post left nephrectomy. 2. Hypoechoic solid nodules seen in the right kidney as described. Neoplastic process should be ruled out. Correlation with a CT scan is recommended for further evaluation. 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 May 02, 2021 CT abdomen and pelvis: IMPRESSION: 1. Small right pleural effusion. 2. Solid enhancing masses of the right kidney and right adrenal gland worrisome for metastatic renal cell carcinoma. No retroperitoneal lymphadenopathy. 3. Large left medially in hernia containing a segment of the descending colon and small bowel without bowel obstruction. September 25, 2021 CT chest abdomen and pelvis: IMPRESSION: Status post left nephrectomy. Interval improvement in the previously seen right adrenal mass. The remainder of the examination is unchanged. June 13, 2021 CT abdomen and pelvis: IMPRESSION: 1. Reidentification of large lobular mass of the right adrenal gland measuring at least 4 cm, suspicious for metastatic disease. Without contrast this is poorly evaluated but on the prior study with contrast a heterogeneous mass was visualized. 2. Reidentification of a rounded partially exophytic mass in the medial aspect of the midpole of the right kidney measuring at least 2.56 cm also demonstrated enhancement on the prior study which is suspicious for malignancy. September 25, 2021 CT chest abdomen and pelvis: IMPRESSION: Status post left nephrectomy. Interval improvement in the previously seen right adrenal mass. The remainder of the examination is unchanged. December 03, 2021 CT abdomen and pelvis, for an episode of acute abdominal pain: IMPRESSION: No acute findings. Suspect slight interval enlargement of the lower pole mass in the right kidney compatible with renal cell carcinoma, not well evaluated without IV contrast. Left flank hernia containing large and small bowel loops, not fully visible. No evidence of obstruction. March 04, 2022 CT chest abdomen and pelvis: IMPRESSION: 1. 3.7 x 3.2 x 3.4 cm mass concerning for neoplasm in the mid to lower right kidney is grossly stable from 12/03/2021. 2. No metastatic disease in the remainder of the exam. May 27, 2022 CT chest abdomen and pelvis: IMPRESSION: Stable examination. Exophytic soft tissue mass in the posterior medial aspect of the mid to lower aspect of the right kidney. Stable hyperplasia of the right adrenal gland. September 08, 2022 CT chest abdomen and pelvis: IMPRESSION: Stable CT scan of the thorax. Slight enlargement of the previously seen lobular solid mass in the medial mid lower portions of the right kidney. October 14, 2022 brain MRI: IMPRESSION: 1.6 cm enhancing mass in the left posterior parietal lobe containing old hemorrhage concerning for hemorrhagic metastasis.? Large amount of surrounding edema with partial effacement of the left lateral ventricle. Paranasal sinus inflammatory disease. Chronic involutional white matter changes. December 16, 2022 brain MRI: IMPRESSION: 1.? No MRI evidence of acute or subacute ischemic infarct or new brain metastatic disease.? 2.? Mild increase in size of enhancing metastatic mass in the left posterior parietal lobe measuring 1.2 x 1.6 cm, previously 1.4 x 1.2 cm. No obvious significant change of the vasogenic edema surrounding the enhancing metastatic mass in the left posterior parietal lobe.? 3.? Mild improvement of mucosal edema in the ethmoid sinuses. December 29, 2022 CT chest abdomen and pelvis: FINDINGS: CHEST Lungs are mildly hyperexpanded, with chronic interstitial changes and nonspecific pleural thickening in both hemithoraces. There is no suspicious noncalcified mass or nodule, organized infiltrate or effusion. Thyroid gland is unremarkable. Normal heart and pericardium.? There are calcifications of the coronary arteries. No suspicious axillary, mediastinal, or perihilar lymph nodes. . Normal unenhanced pulmonary arteries. ? Peripheral calcifications in the thoracic aorta without aneurysm. Bony structures show mild degenerative changes. ABDOMEN Liver is unremarkable aside from a simple cyst in the left lobe.? Normal gallbladder and extrahepatic biliary system.? Normal spleen.? Normal pancreas. Normal bilateral adrenal glands. There has been a previous left nephrectomy. No suspicious soft tissue mass or adenopathy in the left nephrectomy bed. Right kidney shows a stable concerning 3.95 x 3.71 cm mass in the lower pole. 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 Normal visualized stomach.? Normal small intestine.? Normal colon.? The appendix is visualized and appears normal. Appendix seen on coronal recon images 50 through 60 There is diffuse atherosclerotic calcification of the abdominal aorta with elongation and tortuosity, but without a demonstrated aneurysm.? Normal inferior vena cava.? Scattered subcentimeter in short axis dimension unchanged mesenteric and retroperitoneal lymph nodes. Stable left-sided spigelian hernia. Bony structures show degenerative change PELVIS Normal urinary bladder. There is no pelvic fluid.? There is no pelvic lymphadenopathy or mass lesion. Normal visualized pelvic arteries. Fat-containing right inguinal hernia.? There are diffuse degenerative changes of the visualized lumbar spine, and pelvis. IMPRESSION: There is a persistent suspicious solid mass in the lower pole of the right kidney measuring 3.95 x 3.71 cm which is anything is slightly increased in size since the previous study from August. 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 Stable simple hepatic cyst, no specific follow-up needed.? Chronic interstitial changes in both lung post without a superimposed acute pulmonary process? Degenerative bony changes? Stable-appearing left spigelian hernia January 21, 2023 brain MRI: IMPRESSION: Persistent partially hemorrhagic metastasis in the left parietal lobe with vasogenic edema which is relatively stable in size since prior study. No new lesions identified March 13, 2023 chest abdomen and pelvis CT: IMPRESSION: 1.? Slightly larger right posterior mediastinal lymph node of uncertain significance.? 2.? Stable solid 4.2 cm right renal mass. March 16, 2023 brain MRI: IMPRESSION: 1.? There is moderate interval enlargement and doubling in size of the mass in the posterior medial aspect and middle one third region of the left parietal lobe at the periphery of the splenium of the corpus callosum -the primary concern is for progression of the malignancy, however post radiation necrosis and flaring can be considered if there is history of recent radiation treatment to this region. MR spectroscopy can also be acquired to help in differentiating the processes. Clinical consult with neurosurgery is recommended. The left parietal mass has a thick enhancing rim with central necrosis and now measures 3.10 x 2.28 cm compared to the previous measurement of 1.2 x 1.6 cm. 2.? The surrounding vasogenic edema has slightly increased and is extended to the parasagittal and posterior aspect of the superior segment of the occipital lobe and has slightly increased in the anterior to posterior dimension and superior and posterior aspect of the left parietal lobe when compared to the prior study compared images series 6 on the old study and series 6 on the current study. 3.? There is also slightly more mass effect on the occipital horn of the left lateral ventricle compared to the prior study. Minimal midline shift of 1 to 2 mm is present. 4.? No hydrocephalus is seen. There is no transtentorial herniation. 5.? There are no visualized metastatic lesions in the remaining aspects of the cerebral hemispheres or in the posterior fossa April 16, 2023 MRI spectroscopy at [facility] Main campus: Impression: Spectroscopy and perfusion findings medial and dorsal aspects of the treated presumed left parietal metastasis compatible with viable tumor with more extensive surrounding radiation necrosis. May 02, 2023 CTA; emergency room visit because of shortness of breath to rule out PE IMPRESSION: No evidence of acute pulmonary embolism. Small chronic nonocclusive right lower lobar pulmonary embolism. New 3 mm spiculated right lower lobe nodule and left lower lobe pulmonary nodules measuring up to 8 mm, suspicious for metastases. Progression of mild mediastinal and hilar lymphadenopathy. Mild pneumonitis or atypical pneumonia with mosaic attenuation pattern and groundglass opacities with mild septal thickening most confluent in the left upper lobe inferiorly. Chronic scarring in the right lung with pleural thickening. Enhancing right renal mass. Left nephrectomy. These images were reviewed by myself and radiology colleague (courtesy second opinion with question biopsy) and new right lower lobe nodule was not verifiedand by no means would be amenable to biopsy at the size. June 28, 2023 CT chest abdomen and pelvis: IMPRESSION: Stable probable hepatic cyst. Relatively stable right renal masses as noted. Status post left nephrectomy. Mild peripheral interstitial thickening in the lungs. Mild mediastinal adenopathy. October 05, 2023 CT chest abdomen and pelvis: IMPRESSION: 1. Improved bilateral hazy groundglass opacities/infiltrates. 2. Right middle lobe pleural-based density likely due to scarring and postoperative changes unchanged. 3. No evidence of new metastatic disease. 4. Status post left nephrectomy. 5. Left lateral ventricle hernia containing bowel loops and colon without evidence of obstruction unchanged. 6. Bilateral inguinal hernias containing fat. 7. No focal acute inflammatory process. January 13, 2024 chest abdomen and pelvis CT: IMPRESSION: 1. Chronic changes in the lungs unchanged. 2. Stable 7 mm left lower lobe nodule. 3. Stable right paratracheal adenopathy unchanged 4. No evidence of new metastatic disease. 5. Status post left nephrectomy. 6. Stable solid mass in the right kidney likely malignant until proven otherwise. 7. Additional nonacute changes as described above. 8. Further follow-up exam is needed. April 27, 2024 chest abdomen and pelvis CT: IMPRESSION: Stable examination. August 09, 2024 CT chest abdomen and pelvis: IMPRESSION: 1. Solid right-sided renal nodule suggests renal cell carcinoma. This appears unchanged since previous CT. 2. Status post left-sided nephrectomy. 3. Left flank ventral hernia containing bowel. 4. Left basilar airspace disease and/or atelectasis. 5. Unchanged appearance to right middle lobe subpleural nodule. January 10, 2025 CT chest abdomen and pelvis: IMPRESSION: 1. No CT evidence of acute pulmonary embolism. 2. Stable right renal mass suggestive of renal cell carcinoma. Exophytic cyst and lipoma/angiomyolipoma are also noted in the right kidney. 3. Nodular densities in the right middle and right lower lobe which may represent atypical infection versus neoplastic/metastatic disease. 4. Hepatic steatosis and hepatomegaly 5. Mild intrahepatic biliary dilatation 6. Mild splenomegaly January 18, 2025 sigmoidoscopy: SIGMOID COLON, BIOPSY: - Focal active colitis with acute cryptitis and crypt abscess ? see note. - Note: The focal and limited nature of the inflammation, plus lack of apoptosisor crypt distortion/drop ou,t and without increased eosinophils, favors focal active colitis due to bowel prep artifact or medication injury (eg: NSAIDs) or resolving/mild infection over immunotherapy-induced colitis. March 21, 2025 CT chest abdomen and pelvis: IMPRESSION: New right pleural effusion with infiltration in both lungs worse on the right side as described. Status post left nephrectomy. Persistent masses in the right kidney. March 22, 2025 EGD: Impressions : - Non-severe reflux esophagitis with no bleeding. - Erythematous mucosa in the gastric body. - Duodenal mucosal changes seen, diagnostic of celiac disease. Biopsied. Pathology: MICROSCOPIC DIAGNOSIS A. Small bowel, duodenum, biopsy: - Marked villous blunting with acute inflammation and patchy mild increase of intraepithelial lymphocytes Trichrome stain highlights patchy mild thickening of the subepithelial collagen table. The consensus opinion is: Collagenous colitis pattern of injury - see comment. Comment: There is atrophy of villi with increased intraepithelial lymphocytes, scattered surface neutrophilic inflammation and increased subepithelial collagen. This is consistent with collagenous colitis pattern of injury which is a non-specific pattern of injury. The differential diagnosis includes celiac disease and medication-related injury. While these features can be seen with immunocheckpoint inhibitor enteritis, there would usually be more prominent acute inflammation and increased apoptosis. Correlation with clinical impression, medication history, and serologic studies is recommended Treatment summary and response: * 2005 left radical nephrectomy. * March 13, 2021 video-assisted thoracoscopy converted to right muscle-sparing thoracotomy with right lower lobe lobectomy, right upper lobe wedge, right middle lobe wedge and mediastinal lymph node dissection. * May 07, 2021 pembrolizumab plus axitinib for metastatic RCC. Axitinib discontinued May 2021 due to hypertensive crisis. * Keytruda single agent May 07 ?July 30, 2021 (5 cycles) [place] but held in August 2021 due to ELANA. Resumed November 26, 2021 with no recurrent. Held again January 2025 when he developed acute colitis. To resume March 13, 2025 * Stereotactic brain radiation at [facility] October 28, 2022 a single fraction with 10 MV photons. Interval History Patient is here in the clinic accompanied by spouse for an evaluation anticipating he will begin c62 pembrolizumab. Rash involving RLE improved, using topical cream as prescribed by dermatology. Also underwent a biopsy unsure of results. Adherent to GF diet as advised by GI, no N/V. Otherwise feels well. Energy improved. [facility] Medical History MRSA (methicillin resistant staph aureus) culture positive Acute infective gastroenteritis COPD exacerbation History of steroid therapy Low iron Seizures Shortness of breath on exertion History of pain when walking History of edema History of echocardiogram Cardiology follow-up encounter Cervical spinal cord injury Cervical stenosis of spine Numbness in right leg RUE numbness Diarrhea Hypokalemia Duodenal ulcer Anemia Diabetes mellitus, type 2 Hyperglycemia Hyponatremia Thrombocytopenia Pulmonary emboli COPD (chronic obstructive pulmonary disease) Imbalance Brain metastasis Pneumonia Sinus congestion Hx of radiation therapy Brain metastasis Frequent headaches Epistaxis Contact with or suspected exposure to other viral communicable disease Iron deficiency anemia due to chronic blood loss Encounter for immunotherapy Encounter for immunotherapy COVID-19 Nonrheumatic aortic (valve) stenosis with insufficiency Elevated troponin (05/15/21) Encephalopathy (05/15/21) Seizure (05/15/21) Metastatic renal cell carcinoma to lung Dyspnea Metastasis to adrenal gland [place] in place Atherosclerotic heart disease of [place] coronary artery without angina pectoris Hyperlipidemia Wears glasses Wears dentures Gastric reflux Former smoker History of primary malignant neoplasm of left kidney 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 Skin cancer Abnormal colonoscopy Essential (primary) hypertension COPD (chronic obstructive pulmonary disease) Adenocarcinoma of right lung Surgical History H/O cervical discectomy History of cataract surgery History of lobectomy of lung History of nephrectomy, left History of coronary angioplasty (01/05/04) History of coronary artery stent placement (07/17/03) Family History Sister Diabetes CAD (coronary artery disease) Mother CVA (cerebral vascular accident) CAD (coronary artery disease) Lung cancer Father CAD (coronary artery disease) Brother CAD (coronary artery disease) Social History household members: spouse Smoking Status: Former smoker Tobacco: How many years used: 40 second hand exposure: No alcohol intake: current alcohol intake frequency: a few times a month Alcohol type: beer substance use type: does not use seatbelt use: always do you feel safe at home: Yes ROS ROS Narrative Negative except as documented in the interval HPI Intake Vital Signs 05/24/25 10:33 06/15/25 11:13 Height 5 ft 5 in 5 ft 5 in Weight: 177 lb 6 oz 176 lb 1 oz BMI 29.5 29.2 BP 118/60 154/71 H Blood Pressure Location Lt brachial Lt brachial Position Sitting Sitting Respiration 16 18 Pulse 73 71 Pulse Source Monitor Monitor Temp 99.2 F H 98.8 F Temperature Source Temporal Artery Temporal Artery Pulse Oximetry (%) 92 93 Oxygen Delivery Method room air room air Intake Accompanied by: Is patient in pain?: No Allergies No Known Allergies Allergy (Verified 06/15/25 11:22) Medications ?Medication ?Instructions ?Recorded ?Confirmed ?Type rosuvastatin 40 mg tablet (Crestor) 40 mg PO QHS YING STEROL 08/18/18 06/15/25 History carvedilol 25 mg tablet 25 mg PO BID blood pressure 04/30/21 06/15/25 History hydralazine 50 mg tablet 50 mg PO BID blood pressure 05/31/21 06/15/25 History apixaban 5 mg tablet (Eliquis) 2.5 mg (1/2 x 5 mg) PO BID #60 tabs 07/20/23 06/15/25 Rx amlodipine 10 mg tablet 10 mg PO DAILY #90 tabs 08/0906/15/25 Rx pembrolizumab 25 mg/mL intravenous 200 mg IV Q21D 04/0206/15/25 History solution (Keytruda) metoclopramide HCl 10 mg tablet 10 mg PO Q6H nausea an d vomiting 2 03/24/25 06/15/25 Rx (Reglan) weeks #56 tabs pantoprazole 40 mg tablet,delayed 40 mg PO DAILY 30 da ys #30 tabs 03/24/25 06/15/25 Rx release (Protonix) budesonide 3 mg 9 mg (3 x 3 mg) PO QDAY #90 ea 05/29/25 06/15/25 Rx capsule,delayed,extended release fluticasone fur. 100 mcg-umeclid 1 inh inhalation QDAY #60 ea 06/09/25 06/15/25 Rx 62.5 mcg-vilant 25 mcg inhalat.powder (Trelegy Ellipta) ipratropium 0.5 mg-albuterol 3 mg 3 ml inhalation Q4H PRN shortness 06/09/25 06/15/25 Rx (2.5 mg base)/3 mL nebulization of breath or wheezing #180 mL soln triamcinolone acetonide 0.1 % applic topical 06/09/25 06/15/25 History topical cream Have you fallen in the past year?: No Central Venous Access Central Venous Access: Yes Port/PICC: Port Laboratory Tests 06/15/25 10:45 WBC 6.5 Hgb 12.4 L Hct 38.7 L Plt Count 142 L Absolute Neuts (auto) 4.6 Sodium 140 Potassium 3.9 Chloride 108 Carbon Dioxide 19.3 L Anion Gap 12 BUN 21 H Glucose 96 Calcium 8.8 Phosphorus 3.6 Total Bilirubin 0.38 AST 16 ALT 15 Alkaline Phosphatase 49 Albumin 4.0 Exam Physical Exam Narrative ECOG 1 Const alert and no apparent distress General Appearance: comfortable HEENT normocephalic Mouth: oral and palatal mucosa normal Eyes no scleral icterus General Eye: normal appearance of both eyes Neck full ROM, supple and no JVD Lymph Lymphatic: no lymphadenopathy noted Chest Chest Narrative: Port R IC area Chest: symmetrical chest wall rise and vascular access Resp normal respiratory effort and clear to auscultation bilaterally Cardio regular rate, regular rhythm, S1 normal heart sound, S2 normal heart sound and no murmurs GI soft to palpation, non-tender and non-distended; Negative for hepatosplenomegaly no CVA tenderness Back/Spine no thoracic nor lumbar tenderness Extremity no clubbing, cyanosis or edema Skin no rashes or lesions noted Neuro CN's II-XII intact bilaterally, moves all extremities and no focal motor deficits Speech: speech normal Gait (Neuro): normal gait, assistive device used cane and other Psych mental status grossly normal Coding Level of Care Code Off vis,est,level 4 Exam Problem Focused Diagnoses Cancer of right kidney C64.1 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 C64.9; C78.00 Malignant neoplasm metastatic to right adrenal gland C79.71 Laterality: right Regional lymph node metastasis present C77.9 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 C34.31 History of primary malignant neoplasm of left kidney Z85.528 Brain metastasis C79.31 Iron deficiency anemia due to chronic blood loss D50.0 Encounter for immunotherapy Z29.8 Assessment and Plan Assessment and Plan (1) Cancer of right kidney: Status: Chronic (2) 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: Status: Chronic (3) 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 Qualifiers: Laterality: right Qualified Code(s): C79.71 - Secondary malignant neoplasm of right adrenal gland (4) 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 Metastatic renal cell cancer incidentally found in the right lower lobe lungresection March 12, 2021 multiple nodules. Patient is status post left nephrectomy in August 2006 for a 6.5 cm clear-cell renal cancer confined to the kidney withno lymphovascular invasion and most likely cured by the radical surgery. Patient has an incidentally (asymptomatic, not PET avid) found at least 2 solid nodules in the right kidney most consistent with primary renal cancer and is themost likely source for the metastatic RCC pathologically confirmed and the rightlower lobe of the lung in March 2021. Patient is in the intermediate risk group based on the international Metastatic Renal Cell Carcinoma Database Consortium criteria since he presents with metastatic disease de corry. Patient started systemic therapy with combination pembrolizumab and axitinib May 07, 2021. He developed a hypertensive crisis ontop of pre-existing hypertension requiring hospitalization (TIA and seizure). Axitinib has been on hold since. He was seen by cardiology (Dr. Sandoval), blood pressure medications were adjusted with better blood pressure control. Although Dr. Sandoval did not feel that axitinib is contraindicated once his blood pressure is under good control, patient is hesitant about resuming therapy with axitinib. He continued to tolerate Keytruda with no grade 3 or 4 toxicities April through August 2021 (so far reported subjective fatigue and noted a rash over the uppertrunk that responded to topical [id number] preparation). Keytruda held August 2021 due to acute kidney injury cause unclear (baseline creatinine 1.0, peak 1.9). 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 His creatinine recovered to baseline by November 2021. * Imaging (no contrast was given) September 2021 shows a marked improvement in the mass involving the right kidney and right adrenal gland. There are stable abnormalities in the chest that are nonspecific. * Imaging (no contrast) November 2021 during an acute episode of abdominal pain suggested slight worsening of the mass involving the right kidney but he had been off therapy for a while. Resumed Keytruda November 2021, recurrent rash manageable with topical steroids is likely a side effect. Slight increase in creatinine (less than 0.3 mg per DL, not mounting to grade 1 toxicity) also likely side effect of Keytruda. * Imaging August 2022 shows if any subtle minimal enlargement in the mass in the right kidney. No other evidence of progression of disease elsewhere. 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 * December 2022 had some recurrent headache and brain MRI showed if any mild increase in the size of the mass in the left posterior parietal lobe with surrounding edema improved with steroids. 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 * Imaging of the chest abdomen and pelvis most recent is March 2025 shows overall stable disease . Lung infiltrate and right pleural effusion nonspecific will be followed up. January 2025 was hospitalized with acute diarrheal illness, was started on oral steroids for provisional diagnosis of checkpoint inhibitor induced gastroenteritis, underwent sigmoidoscopy, pathology came back favoring an infectious etiology over immune mediated enteritis. Weaned off steroids over February 2025 to resume pembrolizumab with no recurrence of diarrhea. 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 Was treated with high-dose steroids gradually weaning of to be replaced with budesonide and was placed on agluten-free diet; improved 2. Non-small cell lung cancer, adenocarcinoma poorly differentiated G3 stage IIB(T3, N1, M0) status post R0 resection March 12, 2021. Tumor is EGFR negative (exons 18, 19, 20 and 21) Adjuvant systemic chemotherapy would be advisable if the patient did not have anactive ongoing 2nd malignancy that is not chemo sensitive. However immune therapy with PDL 1 inhibitor as part of the standard treatment for metastatic non-small cell lung cancer at this time and its role in adjuvant setting is being investigated and is conceivably have some effectiveness. 3. 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 4. Anemia: Of iron deficiency due to chronic GI blood loss (peptic ulcer disease) and cancer cancer its therapy. His anemia did not respond to oral iron vitamin C supplement but improved following IV iron, to relapse again by February 2023 Comorbid conditions: Smoker till February 2021, emphysema (pathology of resection 2020), hiatus hernia. 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 Degenerative spine disease. Plan: 1-continue pembrolizumab and if no recurrences this will further confirm the pathologic impression that the diarrhea was not immune mediated. matheus 60 today. 2-VEGF inhibitor targeted therapy permanently discontinued due to prior hypertensive crisis complicated with seizures from which he recovered. To consider mtor inhibitor for subsequent therapy in the future. 3-continue to follow-up with radiation oncology and neurosurgery for [employer]C [employer] OPER[employer] disease, he is on watchful 4-elective imaging every 3-4 months scheduled June 28 2025. 5-IV iron as needed for recurrent iron deficiency anemia from acute and chronic GI blood loss (peptic ulcer disease) . Studies are pending today, however Hgb improved 12.4. 6-advised continue systemic anticoagulation with Eliquis for incidental finding of pulmonary embolism in April 2023 at reduced dose of 2.5 Mg twice daily. There have been occasions when he stopped it by his own initiative then resumes back Clinical Quality Measures Falls Risk Screening/Assistive Devices Have you fallen in the past year?: No 06/15/25 1207 <Electronically signed by Verónica castro NP CHARGE OUT CLERK-C> Date _ Verónica Meadows NP CHARGE OUT CLERK-C Cosigner Signature: Date (if applicable) CC: ~ [facility] Work Phone: 1(956) 672-905207-16-2025 Evaluation note* Diagnosis Onset Date Resolution Status Admit Date Brain metastasis chronic May 9:38am 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 chronic May 24, 2025 9:38am Cancer of right kidney chronic 2024 9:38am History of primary malignant neoplasm of left kidney chronic May 24, 2025 9:38am Iron deficiency anemia due to chronic blood loss chronic May 092024 9:38am 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 May 092024 9:38am 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 May 24, 2025 9:38am Regional lymph node metastasis present chronic May 24 9:38am COPD (chronic obstructive pulmonary disease) chronic June 09, 025 10:30am 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 June 09, 2025 10:30am Encounter for immunotherapy acute June 15, 2025 10:28am Brain metastasis chronic June 152024 10:28am 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 chronic June 15, 2025 10:28am Cancer of right kidney chronic Au harshal 2024 10:28am History of primary malignant neoplasm of left kidney chronic June 15, 2025 10:28am Iron deficiency anemia due to chronic blood loss June 15, 2025 10:28am 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 June 15, 2025 10:28am 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 June 15, 2025 10:28am Regional lymph node metastasis present chronic June 15, 10:28am Anemia acute July 04 10:20am Brain metastasis chronic June 102024 12:29pm 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 chronic July 05 12:29pm Cancer of right kidney chronic Au harshal 2024 12:29pm History of primary malignant neoplasm of left kidney chronic July 05 12:29pm Iron deficiency anemia due to chronic blood loss chronic July 05, 2025 12:29pm 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 July 05, 2025 12:29pm 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 July 05 12:29pm Regional lymph node metastasis present chronic July 05, 2025 12:29pm Brain metastasis chronic Septembe r 2024 9:41am 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 chronic July 26, 2025 9:41am Cancer of right kidney chronic Se ptember 2024 9:41am History of primary malignant neoplasm of left kidney chronic July 26, 2025 9:41am Iron deficiency anemia due to chronic blood loss chronic Septem chema 2024 9:41am 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 Septem 2024 9:41am 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 July 26, 2025 9:41am Regional lymph node metastasis present chronic July 9:41am Carotid bruit acute July 112024 11:13am Essential (primary) hypertension chronic August 04, 2025 11:13am Hyperlipidemia chronic August 04, 2025 11:13am 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 July 11:13am Nonrheumatic aortic (valve) stenosis with insufficiency chronic August 04, 2025 11:13am History of coronary artery stent placement July 17, 2003 resolved Septe mber 2024 11:13am Brain metastasis chronic August 16, 2025 10:24am 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 chronic August 16 10:24am Cancer of right kidney chronic Oc tob2024 10:24am History of primary malignant neoplasm of left kidney chronic August 16 10:24am Iron deficiency anemia due to chronic blood loss chronic Octobe r 2024 10:24am 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 Octobe r 2024 10:24am 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 August 16 10:24am Regional lymph node metastasis present chronic August 16, 2025 10:24am Cellulitis of right upper extremity resolved August 19 7:52pm Cellulitis acute August 24, 2025 2:30pm [facility] Work Phone: 1(580) 555-806107-16-2025 [facility] [address] [place] [id number] OFFICE VISIT Date of Service: 05/24/25 1026 MR#: [id number] Acct: [id number] Name: JEANCARLOSKENN Linda Rep #: [id number] : 1955 From: Angela stapleton MD Age/Sex: 69/M Location: [facility] Status: Signed HPI Subjective Date of Service 05/24/25 Chief Complaint Metastatic kidney cancer on treatment History of Present Illness Patient is a 69-year-old male smoker till February 2021 who in January 28, 2021 underwent a lung cancer screening CT scan: Showed a spiculated partially cavitary mass within the right lower lobe measuring up to 5.3 cm in maximum diameter with right hilar lymphadenopathy. February 14, 2021 PET/CT showed intensely avid right lower lobe mass consistent withmalignancy with FDGaccumulation within right hilar lymph node consistent with ramon metastases and no evidence of distant metastatic disease. Small noncalcified nodules at the periphery of the right lung base with no ap preciableFDG accumulation were noted. February 20, 2021 right lower lobe lung guided biopsy showed moderately to poorly differentiated adenocarcinoma of lung primary. March 08, 2021 brain MRI showed no abnormal intracranial enhancement to suggest intracranial metastases. March 13, 2021 patient underwent right video-assisted thoracoscopy converted to right muscle-sparing thoracotomy with right lower lobe lobectomy, right upper lobe wedge, right middle lobe wedge and mediastinal lymph node dissection by : Pathology: A. Right upper lobe wedge resection negative for malignancy. B. Right middle lobe wedge resection negative for malignancy. C. Lymph node right pulmonary ligament negative for metastatic carcinoma. D. Lymph node 11 R right middle negative for malignancy. E. Right lower lobe lobectomy multifocal adenocarcinoma grade 3. Incidentally found multiple metastatic nodules of clear-cell renal cell carcinoma and 1 of 5 peribronchial lymph nodes positive for metastatic carcinoma. F. Lymph node 11 R anterior 1 lymph node positive for metastatic carcinoma. G. Lymph node 11 R posterior negative for metastatic carcinoma. H. Lymph node level 7 1 lymph node negative for metastatic carcinoma I. Lymph node level 7 1 lymph node negative for metastatic carcinoma. J. Lymph node level 4R lower paratracheal negative for metastatic carcinoma K. Lymph node right upper paratracheal negative for metastatic carcinoma. Pathologic staging T3N1. EGFR mutation negative. Patient's past medical history is notable for being status post left total nephrectomy in 2005 for kidney cancer. He has been a smoker most of his adult life quit in February 2021 and consumes an average 2 beers per day. April 18, 2021 renal ultrasound: IMPRESSION: Status post left nephrectomy. 2. Hypoechoic solid nodules seen in the right kidney as described. Neoplastic process should be ruled out. Correlation with a CT scan is recommended for further evaluation. 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 May 02, 2021 CT abdomen and pelvis: IMPRESSION: 1. Small right pleural effusion. 2. Solid enhancing masses of the right kidney and right adrenal gland worrisome for metastatic renal cell carcinoma. No retroperitoneal lymphadenopathy. 3. Large left medially in hernia containing a segment of the descending colon and small bowel without bowel obstruction. September 25, 2021 CT chest abdomen and pelvis: IMPRESSION: Status post left nephrectomy. Interval improvement in the previously seen right adrenal mass. The remainder of the examination is unchanged. June 13, 2021 CT abdomen and pelvis: IMPRESSION: 1. Reidentification of large lobular mass of the right adrenal gland measuring at least 4 cm, suspicious for metastatic disease. Without contrast this is poorly evaluated but on the prior study with contrast a heterogeneous mass was visualized. 2. Reidentification of a rounded partially exophytic mass in the medial aspect of the midpole of the right kidney measuring at least 2.56 cm also demonstrated enhancement on the prior study which is suspicious for malignancy. September 25, 2021 CT chest abdomen and pelvis: IMPRESSION: Status post left nephrectomy. Interval improvement in the previously seen right adrenal mass. The remainder of the examination is unchanged. December 03, 2021 CT abdomen and pelvis, for an episode of acute abdominal pain: IMPRESSION: No acute findings. Suspect slight interval enlargement of the lower pole mass in the right kidney compatible with renal cell carcinoma, not well evaluated without IV contrast. Left flank hernia containing large and small bowel loops, not fully visible. No evidence of obstruction. March 04, 2022 CT chest abdomen and pelvis: IMPRESSION: 1. 3.7 x 3.2 x 3.4 cm mass concerning for neoplasm in the mid to lower right kidney is grossly stable from 12/03/2021. 2. No metastatic disease in the remainder of the exam. May 27, 2022 CT chest abdomen and pelvis: IMPRESSION: Stable examination. Exophytic soft tissue mass in the posterior medial aspect of the mid to lower aspect of the right kidney. Stable hyperplasia of the right adrenal gland. September 08, 2022 CT chest abdomen and pelvis: IMPRESSION: Stable CT scan of the thorax. Slight enlargement of the previously seen lobular solid mass in the medial mid lower portions of the right kidney. October 14, 2022 brain MRI: IMPRESSION: 1.6 cm enhancing mass in the left posterior parietal lobe containing old hemorrhage concerning for hemorrhagic metastasis.? Large amount of surrounding edema with partial effacement of the left lateral ventricle. Paranasal sinus inflammatory disease. Chronic involutional white matter changes. December 16, 2022 brain MRI: IMPRESSION: 1.? No MRI evidence of acute or subacute ischemic infarct or new brain metastatic disease.? 2.? Mild increase in size of enhancing metastatic mass in the left posterior parietal lobe measuring 1.2 x 1.6 cm, previously 1.4 x 1.2 cm. No obvious significant change of the vasogenic edema surrounding the enhancing metastatic mass in the left posterior parietal lobe.? 3.? Mild improvement of mucosal edema in the ethmoid sinuses. December 29, 2022 CT chest abdomen and pelvis: FINDINGS: CHEST Lungs are mildly hyperexpanded, with chronic interstitial changes and nonspecific pleural thickening in both hemithoraces. There is no suspicious noncalcified mass or nodule, organized infiltrate or effusion. Thyroid gland is unremarkable. Normal heart and pericardium.? There are calcifications of the coronary arteries. No suspicious axillary, mediastinal, or perihilar lymph nodes. . Normal unenhanced pulmonary arteries. ? Peripheral calcifications in the thoracic aorta without aneurysm. Bony structures show mild degenerative changes. ABDOMEN Liver is unremarkable aside from a simple cyst in the left lobe.? Normal gallbladder and extrahepatic biliary system.? Normal spleen.? Normal pancreas. Normal bilateral adrenal glands. There has been a previous left nephrectomy. No suspicious soft tissue mass or adenopathy in the left nephrectomy bed. Right kidney shows a stable concerning 3.95 x 3.71 cm mass in the lower pole. 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 Normal visualized stomach.? Normal small intestine.? Normal colon.? The appendix is visualized and appears normal. Appendix seen on coronal recon images 50 through 60 There is diffuse atherosclerotic calcification of the abdominal aorta with elongation and tortuosity, but without a demonstrated aneurysm.? Normal inferior vena cava.? Scattered subcentimeter in short axis dimension unchanged mesenteric and retroperitoneal lymph nodes. Stable left-sided spigelian hernia. Bony structures show degenerative change PELVIS Normal urinary bladder. There is no pelvic fluid.? There is no pelvic lymphadenopathy or mass lesion. Normal visualized pelvic arteries. Fat-containing right inguinal hernia.? There are diffuse degenerative changes of the visualized lumbar spine, and pelvis. IMPRESSION: There is a persistent suspicious solid mass in the lower pole of the right kidney measuring 3.95 x 3.71 cm which is anything is slightly increased in size since the previous study from August. 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 Stable simple hepatic cyst, no specific follow-up needed.? Chronic interstitial changes in both lung post without a superimposed acute pulmonary process? Degenerative bony changes? Stable-appearing left spigelian hernia January 21, 2023 brain MRI: IMPRESSION: Persistent partially hemorrhagic metastasis in the left parietal lobe with vasogenic edema which is relatively stable in size since prior study. No new lesions identified March 13, 2023 chest abdomen and pelvis CT: IMPRESSION: 1.? Slightly larger right posterior mediastinal lymph node of uncertain significance.? 2.? Stable solid 4.2 cm right renal mass. March 16, 2023 brain MRI: IMPRESSION: 1.? There is moderate interval enlargement and doubling in size of the mass in the posterior medial aspect and middle one third region of the left parietal lobe at the periphery of the splenium of the corpus callosum -the primary concern is for progression of the malignancy, however post radiation necrosis and flaring can be considered if there is history of recent radiation treatment to this region. MR spectroscopy can also be acquired to help in differentiating the processes. Clinical consult with neurosurgery is recommended. The left parietal mass has a thick enhancing rim with central necrosis and now measures 3.10 x 2.28 cm compared to the previous measurement of 1.2 x 1.6 cm. 2.? The surrounding vasogenic edema has slightly increased and is extended to the parasagittal and posterior aspect of the superior segment of the occipital lobe and has slightly increased in the anterior to posterior dimension and superior and posterior aspect of the left parietal lobe when compared to the prior study compared images 18/ series 6 on the old study and 18/25 series 6 on the current study. 3.? There is also slightly more mass effect on the occipital horn of the left lateral ventricle compared to the prior study. Minimal midline shift of 1 to 2 mm is present. 4.? No hydrocephalus is seen. There is no transtentorial herniation. 5.? There are no visualized metastatic lesions in the remaining aspects of the cerebral hemispheres or in the posterior fossa April 16, 2023 MRI spectroscopy at [facility] Main campus: Impression: Spectroscopy and perfusion findings medial and dorsal aspects of the treated presumed left parietalmetastasis compatible with viable tumor with more extensive surrounding radiation necrosis. May 02, 2023 CTA; emergency room visit because of shortness of breath to rule out PE IMPRESSION: No evidence of acute pulmonary embolism. Small chronic nonocclusive right lower lobar pulmonary embolism. New 3 mm spiculated right lower lobe nodule and left lower lobe pulmonary nodules measuring up to 8 mm, suspicious for metastases. Progression of mild mediastinal and hilar lymphadenopathy. Mild pneumonitis or atypical pneumonia with mosaic attenuation pattern and groundglass opacities with mild septal thickening most confluent in the left upper lobe inferiorly. Chronic scarring in the right lung with pleural thickening. Enhancing right renal mass. Left nephrectomy. These images were reviewed by myself and radiology colleague (courtesy second opinion with questionbiopsy) and new right lower lobe nodule was not verifiedand by no means would be amenable to biopsy at the size. June 28, 2023 CT chest abdomen and pelvis: IMPRESSION: Stable probable hepatic cyst. Relatively stable right renal masses as noted. Status post left nephrectomy. Mild peripheral interstitial thickening in the lungs. Mild mediastinal adenopathy. October 05, 2023 CT chest abdomen and pelvis: IMPRESSION: 1. Improved bilateral hazy groundglass opacities/infiltrates. 2. Right middle lobe pleural-based density likely due to scarring and postoperative changes unchanged. 3. No evidence of new metastatic disease. 4. Status post left nephrectomy. 5. Left lateral ventricle hernia containing bowel loops and colon without evidence of obstruction unchanged. 6. Bilateral inguinal hernias containing fat. 7. No focal acute inflammatory process. January 13, 2024 chest abdomen and pelvis CT: IMPRESSION: 1. Chronic changes in the lungs unchanged. 2. Stable 7 mm left lower lobe nodule. 3. Stable right paratracheal adenopathy unchanged 4. No evidence of new metastatic disease. 5. Status post left nephrectomy. 6. Stable solid mass in the right kidney likely malignant until proven otherwise. 7. Additional nonacute changes as described above. 8. Further follow-up exam is needed. April 27, 2024 chest abdomen and pelvis CT: IMPRESSION: Stable examination. August 09, 2024 CT chest abdomen and pelvis: IMPRESSION: 1. Solid right-sided renal nodule suggests renal cell carcinoma. This appears unchanged since previous CT. 2. Status post left-sided nephrectomy. 3. Left flank ventral hernia containing bowel. 4. Left basilar airspace disease and/or atelectasis. 5. Unchanged appearance to right middle lobe subpleural nodule. January 10, 2025 CT chest abdomen and pelvis: IMPRESSION: 1. No CT evidence of acute pulmonary embolism. 2. Stable right renal mass suggestive of renal cell carcinoma. Exophytic cyst and lipoma/angiomyolipoma are also noted in the right kidney. 3. Nodular densities in the right middle and right lower lobe which may represent atypical infection versus neoplastic/metastatic disease. 4. Hepatic steatosis and hepatomegaly 5. Mild intrahepatic biliary dilatation 6. Mild splenomegaly January 18, 2025 sigmoidoscopy: SIGMOID COLON, BIOPSY: - Focal active colitis with acute cryptitis and crypt abscess ? see note. - Note: The focal and limited nature of the inflammation, plus lack of apoptosisor crypt distortion/drop ou,t and without increased eosinophils, favors focal active colitis due to bowel prep artifact or medication injury (eg: NSAIDs) or resolving/mild infection over immunotherapy-induced colitis. March 21, 2025 CT chest abdomen and pelvis: IMPRESSION: New right pleural effusion with infiltration in both lungs worse on the right side as described. Status post left nephrectomy. Persistent masses in the right kidney. March 22, 2025 EGD: Impressions : - Non-severe reflux esophagitis with no bleeding. - Erythematous mucosa in the gastric body. - Duodenal mucosal changes seen, diagnostic of celiac disease. Biopsied. Pathology: MICROSCOPIC DIAGNOSIS A. Small bowel, duodenum, biopsy: - Marked villous blunting with acute inflammation and patchy mild increase of intraepithelial lymphocytes Trichrome stain highlights patchy mild thickening of the subepithelial collagen table. The consensus opinion is: Collagenous colitis pattern of injury - see comment. Comment: There is atrophy of villi with increased intraepithelial lymphocytes, scattered surface neutrophilic inflammation and increased subepithelial collagen. This is consistent with collagenous colitis pattern of injury which is a non-specific pattern of injury. The differential diagnosis includes celiac disease and medication-related injury. While these features can be seen with immunocheckpoint inhibitor enteritis, there would usually be more prominent acute inflammation and increased apoptosis. Correlation with clinical impression, medication history, and serologic studies is recommended Treatment summary and response: * 2005 left radical nephrectomy. * March 13, 2021 video-assisted thoracoscopy converted to right muscle-sparing thoracotomy with right lower lobe lobectomy, right upper lobe wedge, right middle lobe wedge and mediastinal lymph node dissection. * May 07, 2021 pembrolizumab plus axitinib for metastatic RCC. Axitinib discontinued May 2021 dueto hypertensive crisis. * Keytruda single agent May 07 ?July 30, 2021 (5 cycles) [place] but held in August 2021 due to ELANA. Resumed November 26, 2021 with no recurrent. Held again January 2025 when he developed acute colitis. To resume March 13, 2025 * Stereotactic brain radiation at [facility] October 28, 2022 a single fraction with 10 MV photons. [facility] Medical History MRSA (methicillin resistant staph aureus) culture positive Acute infective gastroenteritis COPD exacerbation History of steroid therapy Low iron Seizures Shortness of breath on exertion History of pain when walking History of edema History of echocardiogram Cardiology follow-up encounter Cervical spinal cord injury Cervical stenosis of spine Numbness in right leg RUE numbness Diarrhea Hypokalemia Duodenal ulcer Anemia Diabetes mellitus, type 2 Hyperglycemia Hyponatremia Thrombocytopenia Pulmonary emboli COPD (chronic obstructive pulmonary disease) Imbalance Brain metastasis Pneumonia Sinus congestion Hx of radiation therapy Brain metastasis Frequent headaches Epistaxis Contact with or suspected exposure to other viral communicable disease Iron deficiency anemia due to chronic blood loss Encounter for immunotherapy Encounter for immunotherapy COVID-19 Nonrheumatic aortic (valve) stenosis with insufficiency Elevated troponin (05/15/21) Encephalopathy (05/15/21) Seizure (05/15/21) Metastatic renal cell carcinoma to lung Dyspnea Metastasis to adrenal gland Port-A-Cath in place Atherosclerotic heart disease of [place] coronary artery without angina pectoris Hyperlipidemia Wears glasses Wears dentures Gastric reflux Former smoker History of primary malignant neoplasm of left kidney 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 Skin cancer Abnormal colonoscopy Essential (primary) hypertension COPD (chronic obstructive pulmonary disease) Adenocarcinoma of right lung Surgical History H/O cervical discectomy History of cataract surgery History of lobectomy of lung History of nephrectomy, left History of coronary angioplasty (01/05/04) History of coronary artery stent placement (07/17/03) Family History Sister Diabetes CAD (coronary artery disease) Mother CVA (cerebral vascular accident) CAD (coronary artery disease) Lung cancer Father CAD (coronary artery disease) Brother CAD (coronary artery disease) Social History household members: spouse Smoking Status: Former smoker Tobacco: How many years used: 40 second hand exposure: No alcohol intake: current alcohol intake frequency: a few times a month Alcohol type: beer substance use type: does not use seatbelt use: always do you feel safe at home: Yes ROS Constitutional Constitutional: Denies anorexia, fatigue, fever(s), headache(s), night sweats, weight gain or weight loss Eyes Eyes: Reports systems reviewed and no addt'l complaints, except as documented; Denies blurry vision ENT HEENT: Reports systems reviewed and no addt'l complaints, except as documented and loss taste/smell; Denies bleeding gums, epistaxis, headache(s) or mouth lesions Cardiovascular Cardiovascular: Reports systems reviewed and no addt'l complaints, except as documented; Denies chest pain with activity or edema Respiratory/Chest Respiratory/Chest: Reports systems reviewed and no addt'l complaints, except as documented and dyspnea on exertion; Denies cough, hemoptysis or wheezing Gastrointestinal Gastrointestinal: Reports systems reviewed and no addt'l complaints, except as documented; Denies abdominal pain, bloating, change in bowel habits, constipation, diarrhea, hematochezia, melena or nausea Genitourinary Genitourinary: Reports systems reviewed and no addt'l complaints, except as documented; Denies hematuria Musculoskeletal Musculoskeletal: Reports systems reviewed and no addt'l complaints, except as documented and arthralgias; Denies back pain or myalgias Integumentary Integumentary: Reports systems reviewed and no addt'l complaints, except as documented; Denies pruritus or rash Neurologic Neurologic: Reports systems reviewed and no addt'l complaints, except as documented; Denies abnormal speech, behavior changes, focal weakness, frequent falls, headache(s), memory loss, paresthesias or seizures Psychiatric Psychiatric: Reports systems reviewed and no addt'l complaints, except as documented Endocrine Endocrinology: Reports systems reviewed and no addt'l complaints, except as documented Hematologic/Lymphatic Hematologic/Lymphatic: Reports systems reviewed and no addt'l complaints, exceptas documented and easy bruising; Denies easy bleeding or lymphadenopathy Allergic/Immunologic Allergic/Immunologic: Reports systems reviewed and no addt'l complaints, except as documented Intake Vital Signs 04/12/25 13:32 05/24/25 10:28 05/24/25 10:33 Height 5 ft 5 in 5 ft 5 in 5 ft 5 in Weight: 80.456 kg BMI 29.5 BP 118/60 Blood Pressure Location Lt brachial Position Sitting Respiration 16 Pulse 73 Pulse Source Monitor Temp 99.2 F H Temperature Source Temporal Artery Pulse Oximetry (%) 92 Oxygen Delivery Method room air Intake Is patient in pain?: No Allergies No Known Allergies Allergy (Verified 05/24/25 10:33) Medications ?Medication ?Instructions ?Recorded ?Confirmed ?Type rosuvastatin 40 mg tablet (Crestor) 40 mg PO QHS YING STEROL 08/18/18 05/24/25 History carvedilol 25 mg tablet 25 mg PO BID blood pressure 04/30/21 05/24/25 History hydralazine 50 mg tablet 50 mg PO BID blood pressure 05/31/21 05/24/25 History apixaban 5 mg tablet (Eliquis) 2.5 mg (1/2 x 5 mg) PO BID #60 tabs 07/20/23 05/24/25 Rx amlodipine 10 mg tablet 10 mg PO DAILY #90 tabs 08/0905/24/25 Rx ipratropium 0.5 mg-albuterol 3 mg 3 ml inhalation Q4H PRN shortness 09/07/23 05/24/25 Rx (2.5 mg base)/3 mL nebulization of breath or wheezing #180 mL soln pembrolizumab 25 mg/mL intravenous 200 mg IV Q21D 04/0205/24/25 History solution (Keytruda) metoclopramide HCl 10 mg tablet 10 mg PO Q6H nausea an d vomiting 2 03/24/25 05/24/25 Rx (Reglan) weeks #56 tabs pantoprazole 40 mg tablet,delayed 40 mg PO DAILY 30 da ys #30 tabs 03/24/25 05/24/25 Rx release (Protonix) budesonide 3 mg 9 mg (3 x 3 mg) PO QDAY #90 ea 03/31/25 05/24/25 Rx capsule,delayed,extended release Have you fallen in the past year?: No Central Venous Access Central Venous Access: Yes Port/PICC: Port CBC May 24, 2025 reviewed in EMR Exam Physical Exam Narrative ECOG 1 Const alert and no apparent distress Constitutional Narrative: Cushingoid General Appearance: comfortable HEENT normocephalic Mouth: oral and palatal mucosa normal Eyes no scleral icterus General Eye: normal appearance of both eyes Neck full ROM, supple and no JVD Lymph Lymphatic: no lymphadenopathy noted Chest Chest Narrative: Port R IC area Chest: symmetrical chest wall rise and vascular access Resp normal respiratory effort and clear to auscultation bilaterally Cardio regular rate, regular rhythm, S1 normal heart sound, S2 normal heart sound and no murmurs GI soft to palpation, non-tender and non-distended; Negative for hepatosplenomegaly no CVA tenderness Back/Spine no thoracic nor lumbar tenderness Extremity no clubbing, cyanosis or edema Skin no rashes or lesions noted Neuro CN's II-XII intact bilaterally, moves all extremities and no focal motor deficits Speech: speech normal Gait (Neuro): normal gait, assistive device used cane and other Psych mental status grossly normal Coding Level of Care Code Off vis,est,level 4 Exam Problem Focused Diagnoses Cancer of right kidney C64.1 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 C64.9; C78.00 Malignant neoplasm metastatic to right adrenal gland C79.71 Laterality: right Regional lymph node metastasis present C77.9 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 C34.31 History of primary malignant neoplasm of left kidney Z85.528 Brain metastasis C79.31 Iron deficiency anemia due to chronic blood loss D50.0 Assessment and Plan Assessment and Plan (1) Cancer of right kidney: Status: Chronic (2) 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: Status: Chronic (3) 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 Metastatic renal cell cancer incidentally found in the right lower lobe lungresection March 12, 2021 multiple nodules. Patient is status post left nephrectomy in August 2006 for a 6.5 cm clear-cell renal cancer confined to the kidney withno lymphovascular invasion and most likely cured by the radical surgery. Patient has an incidentally (asymptomatic, not PET avid) found at least 2 solid nodules in the right kidney most consistent with primary renal cancer and is themost likely source for the metastatic RCC pathologically confirmed and the rightlower lobe of the lung in March 2021. Patient is in the intermediate risk group based on the international Metastatic Renal Cell Carcinoma Database Consortium criteria since he presents with metastatic disease de corry. Patient started systemic therapy with combination pembrolizumab and axitinib May 07, 2021. He developed a hypertensive crisis ontop of pre-existing hypertension requiring hospitalization (TIA and seizure). Axitinib has been on hold since. He was seen by cardiology (Dr. Sandoval), blood pressure medications were adjusted with better blood pressure control. Although Dr. Sandoval did not feel that axitinib is contraindicated once his blood pressure is under good control, patient is hesitant about resuming therapy with axitinib. He continued to tolerate Keytruda with no grade 3 or 4 toxicities April through August 2021 (so farreported subjective fatigue and noted a rash over the uppertrunk that responded to topical [id number] preparation). Keytruda held August 2021 due to acute kidney injury cause unclear (baseline creatinine 1.0, peak 1.9). 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 His creatinine recovered to baseline by November 2021. * Imaging (no contrast was given) September 2021 shows a marked improvement in the mass involving the right kidney and right adrenal gland. There are stable abnormalities in the chest that are nonspecific. * Imaging (no contrast) November 2021 during an acute episode of abdominal pain suggested slight worsening of the mass involving the right kidney but he had been off therapy for a while. Resumed Keytruda November 2021, recurrent rash manageable with topical steroids is likely a side effect. Slight increase in creatinine (less than 0.3 mg per DL, not mounting to grade 1 toxicity) also likely side effect of Keytruda. * Imaging August 2022 shows if any subtle minimal enlargement in the mass in the right kidney. No other evidence of progression of disease elsewhere. 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 * December 2022 had some recurrent headache and brain MRI showed if any mild increase in the size of the mass in the left posterior parietal lobe with surrounding edema improved with steroids. 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 * Imaging of the chest abdomen and pelvis most recent is March 2025 shows overall stable disease . Lung infiltrate and right pleural effusion nonspecific will be followed up. January 2025 was hospitalized with acute diarrheal illness, was started on oral steroids for provisional diagnosis of checkpoint inhibitor induced gastroenteritis, underwent sigmoidoscopy, pathology came back favoring an infectious etiology over immune mediated enteritis. Weaned off steroids over February 2025 to resume pembrolizumab with no recurrence of diarrhea. 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 Was treated with high-dose steroids gradually weaning of to be replaced with budesonide and was placed on agluten-free diet; improved 2. Non-small cell lung cancer, adenocarcinoma poorly differentiated G3 stage IIB(T3, N1, M0) statuspost R0 resection March 12, 2021. Tumor is EGFR negative (exons 18, 19, 20 and 21) Adjuvant systemic chemotherapy would be advisable if the patient did not have anactive ongoing 2nd malignancy that is not chemo sensitive. However immune therapy with PDL 1 inhibitor as part of the standard treatment for metastatic non-small cell lung cancer at this time and its role in adjuvant setting is being investigated and is conceivably have some effectiveness. 3. 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 4. Anemia: Of iron deficiency due to chronic GI blood loss (peptic ulcer disease) and cancer cancerits therapy. His anemia did not respond to oral iron vitamin C supplement but improved following IV iron, to relapse again by February 2023 Comorbid conditions: Smoker till February 2021, emphysema (pathology of resection 2020), hiatus hernia. 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 Degenerative spine disease. Plan: 1-resume pembrolizumab and if no recurrences this will further confirm the pathologic impression that the diarrhea was not immune mediated. 2-VEGF inhibitor targeted therapy permanently discontinued due to prior hypertensive crisis complicated with seizures from which he recovered. To consider mtor inhibitor for subsequent therapy in thefuture. 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 5-IV iron as needed for recurrent iron deficiency anemia from acute and chronic GI blood loss (peptic ulcer disease) . 6-advised continue systemic anticoagulation with Eliquis for incidental finding of pulmonary embolism in April 2023 at reduced dose of 2.5 Mg twice daily. There have been occasions when he stopped it by his own initiative then resumes back Angela Rodriguez MD Speech And Language Assistant, [facility] Divisions of Medical Oncology & Hematology Department of Internal Medicine [place] [id number] This note was generated using a voice recognition system software. Although itwas reviewed by the author prior to finalization, it may still contain incorrectwords, spelling, and punctuation that were not noted when reviewing prior to saving. If a clinically significant typo or inaccurately typed phrase is noted, please notify the author. Clinical Quality Measures Falls Risk Screening/Assistive Devices Have you fallen in the past year?: No 05/24/25 1056 tramaine BAUTISTA> Date _ Angela Rodriguez MD Cosigner Signature: Date (if applicable) CC: ~ [facility]07-16-2025 Progress note Author Angela Rodriguez [facility] Note Date/Time May 24, 2025 10:5 6am [facility] [place] [address] OFFICE VISIT Date of Service: 05/24/25 1026 MR#: [id number] Acct: [id number] Name: KENN ARSHAD Linda Rep #: [id number] : 1955 From: Angela stapleton MD Age/Sex: 69/M Location[place] [facility] [place] Status: Signed HPI Subjective Date of Service 05/24/25 Chief Complaint Metastatic kidney cancer on treatment History of Present Illness Patient is a 69-year-old male smoker till February 2021 who in January 28, 2021 underwent a lung cancer screening CT scan: Showed a spiculated partially cavitary mass within the right lower lobe measuring up to 5.3 cm in maximum diameter with right hilar lymphadenopathy. February 14, 2021 PET/CT showed intensely avid right lower lobe mass consistent withmalignancy with FDG accumulation within right hilar lymph node consistent with ramon metastases and no evidence of distant metastatic disease. Small noncalcified nodules at the periphery of the right lung base with no appreciableFDG accumulation were noted. February 20, 2021 right lower lobe lung guided biopsy showed moderately to poorly differentiated adenocarcinoma of lung primary. March 08, 2021 brain MRI showed no abnormal intracranial enhancement to suggest intracranial metastases. March 13, 2021 patient underwent right video-assisted thoracoscopy converted to right muscle-sparing thoracotomy with right lower lobe lobectomy, right upper lobe wedge, right middle lobe wedge and mediastinal lymph node dissection by : Pathology: A. Right upper lobe wedge resection negative for malignancy. B. Right middle lobe wedge resection negative for malignancy. C. Lymph node right pulmonary ligament negative for metastatic carcinoma. D. Lymph node 11 R right middle negative for malignancy. E. Right lower lobe lobectomy multifocal adenocarcinoma grade 3. Incidentally found multiple metastatic nodules of clear-cell renal cell carcinoma and 1 of 5 peribronchial lymph nodes positive for metastatic carcinoma. F. Lymph node 11 R anterior 1 lymph node positive for metastatic carcinoma. G. Lymph node 11 R posterior negative for metastatic carcinoma. H. Lymph node level 7 1 lymph node negative for metastatic carcinoma I. Lymph node level 7 1 lymph node negative for metastatic carcinoma. J. Lymph node level 4R lower paratracheal negative for metastatic carcinoma K. Lymph node right upper paratracheal negative for metastatic carcinoma. Pathologic staging T3N1. EGFR mutation negative. Patient's past medical history is notable for being status post left total nephrectomy in 2005 for kidney cancer. He has been a smoker most of his adult life quit in February 2021 and consumes an average 2 beers per day. April 18, 2021 renal ultrasound: IMPRESSION: Status post left nephrectomy. 2. Hypoechoic solid nodules seen in the right kidney as described. Neoplastic process should be ruled out. Correlation with a CT scan is recommended for further evaluation. 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 May 02, 2021 CT abdomen and pelvis: IMPRESSION: 1. Small right pleural effusion. 2. Solid enhancing masses of the right kidney and right adrenal gland worrisome for metastatic renal cell carcinoma. No retroperitoneal lymphadenopathy. 3. Large left medially in hernia containing a segment of the descending colon and small bowel without bowel obstruction. September 25, 2021 CT chest abdomen and pelvis: IMPRESSION: Status post left nephrectomy. Interval improvement in the previously seen right adrenal mass. The remainder of the examination is unchanged. June 13, 2021 CT abdomen and pelvis: IMPRESSION: 1. Reidentification of large lobular mass of the right adrenal gland measuring at least 4 cm, suspicious for metastatic disease. Without contrast this is poorly evaluated but on the prior study with contrast a heterogeneous mass was visualized. 2. Reidentification of a rounded partially exophytic mass in the medial aspect of the midpole of the right kidney measuring at least 2.56 cm also demonstrated enhancement on the prior study which is suspicious for malignancy. September 25, 2021 CT chest abdomen and pelvis: IMPRESSION: Status post left nephrectomy. Interval improvement in the previously seen right adrenal mass. The remainder of the examination is unchanged. December 03, 2021 CT abdomen and pelvis, for an episode of acute abdominal pain: IMPRESSION: No acute findings. Suspect slight interval enlargement of the lower pole mass in the right kidney compatible with renal cell carcinoma, not well evaluated without IV contrast. Left flank hernia containing large and small bowel loops, not fully visible. No evidence of obstruction. March 04, 2022 CT chest abdomen and pelvis: IMPRESSION: 1. 3.7 x 3.2 x 3.4 cm mass concerning for neoplasm in the mid to lower right kidney is grossly stable from 12/03/2021. 2. No metastatic disease in the remainder of the exam. May 27, 2022 CT chest abdomen and pelvis: IMPRESSION: Stable examination. Exophytic soft tissue mass in the posterior medial aspect of the mid to lower aspect of the right kidney. Stable hyperplasia of the right adrenal gland. September 08, 2022 CT chest abdomen and pelvis: IMPRESSION: Stable CT scan of the thorax. Slight enlargement of the previously seen lobular solid mass in the medial mid lower portions of the right kidney. October 14, 2022 brain MRI: IMPRESSION: 1.6 cm enhancing mass in the left posterior parietal lobe containing old hemorrhage concerning for hemorrhagic metastasis.? Large amount of surrounding edema with partial effacement of the left lateral ventricle. Paranasal sinus inflammatory disease. Chronic involutional white matter changes. December 16, 2022 brain MRI: IMPRESSION: 1.? No MRI evidence of acute or subacute ischemic infarct or new brain metastatic disease.? 2.? Mild increase in size of enhancing metastatic mass in the left posterior parietal lobe measuring 1.2 x 1.6 cm, previously 1.4 x 1.2 cm. No obvious significant change of the vasogenic edema surrounding the enhancing metastatic mass in the left posterior parietal lobe.? 3.? Mild improvement of mucosal edema in the ethmoid sinuses. December 29, 2022 CT chest abdomen and pelvis: FINDINGS: CHEST Lungs are mildly hyperexpanded, with chronic interstitial changes and nonspecific pleural thickening in both hemithoraces. There is no suspicious noncalcified mass or nodule, organized infiltrate or effusion. Thyroid gland is unremarkable. Normal heart and pericardium.? There are calcifications of the coronary arteries. No suspicious axillary, mediastinal, or perihilar lymph nodes. . Normal unenhanced pulmonary arteries. ? Peripheral calcifications in the thoracic aorta without aneurysm. Bony structures show mild degenerative changes. ABDOMEN Liver is unremarkable aside from a simple cyst in the left lobe.? Normal gallbladder and extrahepatic biliary system.? Normal spleen.? Normal pancreas. Normal bilateral adrenal glands. There has been a previous left nephrectomy. No suspicious soft tissue mass or adenopathy in the left nephrectomy bed. Right kidney shows a stable concerning 3.95 x 3.71 cm mass in the lower pole. 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 Normal visualized stomach.? Normal small intestine.? Normal colon.? The appendix is visualized and appears normal. Appendix seen on coronal recon images 50 through 60 There is diffuse atherosclerotic calcification of the abdominal aorta with elongation and tortuosity, but without a demonstrated aneurysm.? Normal inferior vena cava.? Scattered subcentimeter in short axis dimension unchanged mesenteric and retroperitoneal lymph nodes. Stable left-sided spigelian hernia. Bony structures show degenerative change PELVIS Normal urinary bladder. There is no pelvic fluid.? There is no pelvic lymphadenopathy or mass lesion. Normal visualized pelvic arteries. Fat-containing right inguinal hernia.? There are diffuse degenerative changes of the visualized lumbar spine, and pelvis. IMPRESSION: There is a persistent suspicious solid mass in the lower pole of the right kidney measuring 3.95 x 3.71 cm which is anything is slightly increased in size since the previous study from August. 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 Stable simple hepatic cyst, no specific follow-up needed.? Chronic interstitial changes in both lung post without a superimposed acute pulmonary process? Degenerative bony changes? Stable-appearing left spigelian hernia January 21, 2023 brain MRI: IMPRESSION: Persistent partially hemorrhagic metastasis in the left parietal lobe with vasogenic edema which is relatively stable in size since prior study. No new lesions identified March 13, 2023 chest abdomen and pelvis CT: IMPRESSION: 1.? Slightly larger right posterior mediastinal lymph node of uncertain significance.? 2.? Stable solid 4.2 cm right renal mass. March 16, 2023 brain MRI: IMPRESSION: 1.? There is moderate interval enlargement and doubling in size of the mass in the posterior medial aspect and middle one third region of the left parietal lobe at the periphery of the splenium of the corpus callosum -the primary concern is for progression of the malignancy, however post radiation necrosis and flaring can be considered if there is history of recent radiation treatment to this region. MR spectroscopy can also be acquired to help in differentiating the processes. Clinical consult with neurosurgery is recommended. The left parietal mass has a thick enhancing rim with central necrosis and now measures 3.10 x 2.28 cm compared to the previous measurement of 1.2 x 1.6 cm. 2.? The surrounding vasogenic edema has slightly increased and is extended to the parasagittal and posterior aspect of the superior segment of the occipital lobe and has slightly increased in the anterior to posterior dimension and superior and posterior aspect of the left parietal lobe when compared to the prior study compared images series 6 on the old study and / series 6 on the current study. 3.? There is also slightly more mass effect on the occipital horn of the left lateral ventricle compared to the prior study. Minimal midline shift of 1 to 2 mm is present. 4.? No hydrocephalus is seen. There is no transtentorial herniation. 5.? There are no visualized metastatic lesions in the remaining aspects of the cerebral hemispheres or in the posterior fossa April 16, 2023 MRI spectroscopy at [facility] Main campus: Impression: Spectroscopy and perfusion findings medial and dorsal aspects of the treated presumed left parietal metastasis compatible with viable tumor with more extensive surrounding radiation necrosis. May 02, 2023 CTA; emergency room visit because of shortness of breath to rule out PE IMPRESSION: No evidence of acute pulmonary embolism. Small chronic nonocclusive right lower lobar pulmonary embolism. New 3 mm spiculated right lower lobe nodule and left lower lobe pulmonary nodules measuring up to 8 mm, suspicious for metastases. Progression of mild mediastinal and hilar lymphadenopathy. Mild pneumonitis or atypical pneumonia with mosaic attenuation pattern and groundglass opacities with mild septal thickening most confluent in the left upper lobe inferiorly. Chronic scarring in the right lung with pleural thickening. Enhancing right renal mass. Left nephrectomy. These images were reviewed by myself and radiology colleague (courtesy second opinion with question biopsy) and new right lower lobe nodule was not verifiedand by no means would be amenable to biopsy at the size. June 28, 2023 CT chest abdomen and pelvis: IMPRESSION: Stable probable hepatic cyst. Relatively stable right renal masses as noted. Status post left nephrectomy. Mild peripheral interstitial thickening in the lungs. Mild mediastinal adenopathy. October 05, 2023 CT chest abdomen and pelvis: IMPRESSION: 1. Improved bilateral hazy groundglass opacities/infiltrates. 2. Right middle lobe pleural-based density likely due to scarring and postoperative changes unchanged. 3. No evidence of new metastatic disease. 4. Status post left nephrectomy. 5. Left lateral ventricle hernia containing bowel loops and colon without evidence of obstruction unchanged. 6. Bilateral inguinal hernias containing fat. 7. No focal acute inflammatory process. January 13, 2024 chest abdomen and pelvis CT: IMPRESSION: 1. Chronic changes in the lungs unchanged. 2. Stable 7 mm left lower lobe nodule. 3. Stable right paratracheal adenopathy unchanged 4. No evidence of new metastatic disease. 5. Status post left nephrectomy. 6. Stable solid mass in the right kidney likely malignant until proven otherwise. 7. Additional nonacute changes as described above. 8. Further follow-up exam is needed. April 27, 2024 chest abdomen and pelvis CT: IMPRESSION: Stable examination. August 09, 2024 CT chest abdomen and pelvis: IMPRESSION: 1. Solid right-sided renal nodule suggests renal cell carcinoma. This appears unchanged since previous CT. 2. Status post left-sided nephrectomy. 3. Left flank ventral hernia containing bowel. 4. Left basilar airspace disease and/or atelectasis. 5. Unchanged appearance to right middle lobe subpleural nodule. January 10, 2025 CT chest abdomen and pelvis: IMPRESSION: 1. No CT evidence of acute pulmonary embolism. 2. Stable right renal mass suggestive of renal cell carcinoma. Exophytic cyst and lipoma/angiomyolipoma are also noted in the right kidney. 3. Nodular densities in the right middle and right lower lobe which may represent atypical infection versus neoplastic/metastatic disease. 4. Hepatic steatosis and hepatomegaly 5. Mild intrahepatic biliary dilatation 6. Mild splenomegaly January 18, 2025 sigmoidoscopy: SIGMOID COLON, BIOPSY: - Focal active colitis with acute cryptitis and crypt abscess ? see note. - Note: The focal and limited nature of the inflammation, plus lack of apoptosisor crypt distortion/drop ou,t and without increased eosinophils, favors focal active colitis due to bowel prep artifact or medication injury (eg: NSAIDs) or resolving/mild infection over immunotherapy-induced colitis. March 21, 2025 CT chest abdomen and pelvis: IMPRESSION: New right pleural effusion with infiltration in both lungs worse on the right side as described. Status post left nephrectomy. Persistent masses in the right kidney. March 22, 2025 EGD: Impressions : - Non-severe reflux esophagitis with no bleeding. - Erythematous mucosa in the gastric body. - Duodenal mucosal changes seen, diagnostic of celiac disease. Biopsied. Pathology: MICROSCOPIC DIAGNOSIS A. Small bowel, duodenum, biopsy: - Marked villous blunting with acute inflammation and patchy mild increase of intraepithelial lymphocytes Trichrome stain highlights patchy mild thickening of the subepithelial collagen table. The consensus opinion is: Collagenous colitis pattern of injury - see comment. Comment: There is atrophy of villi with increased intraepithelial lymphocytes, scattered surface neutrophilic inflammation and increased subepithelial collagen. This is consistent with collagenous colitis pattern of injury which is a non-specific pattern of injury. The differential diagnosis includes celiac disease and medication-related injury. While these features can be seen with immunocheckpoint inhibitor enteritis, there would usually be more prominent acute inflammation and increased apoptosis. Correlation with clinical impression, medication history, and serologic studies is recommended Treatment summary and response: * 2005 left radical nephrectomy. * March 13, 2021 video-assisted thoracoscopy converted to right muscle-sparing thoracotomy with right lower lobe lobectomy, right upper lobe wedge, right middle lobe wedge and mediastinal lymph node dissection. * May 07, 2021 pembrolizumab plus axitinib for metastatic RCC. Axitinib discontinued May 2021 due to hypertensive crisis. * Keytruda single agent May 07 ?July 30, 2021 (5 cycles) [place] but held in August 2021 due to ELANA. Resumed November 26, 2021 with no recurrent. Held again January 2025 when he developed acute colitis. To resume March 13, 2025 * Stereotactic brain radiation at [facility] October 28, 2022 a single fraction with 10 MV photons. [facility] Medical History MRSA (methicillin resistant staph aureus) culture positive Acute infective gastroenteritis COPD exacerbation History of steroid therapy Low iron Seizures Shortness of breath on exertion History of pain when walking History of edema History of echocardiogram Cardiology follow-up encounter Cervical spinal cord injury Cervical stenosis of spine Numbness in right leg RUE numbness Diarrhea Hypokalemia Duodenal ulcer Anemia Diabetes mellitus, type 2 Hyperglycemia Hyponatremia Thrombocytopenia Pulmonary emboli COPD (chronic obstructive pulmonary disease) Imbalance Brain metastasis Pneumonia Sinus congestion Hx of radiation therapy Brain metastasis Frequent headaches Epistaxis Contact with or suspected exposure to other viral communicable disease Iron deficiency anemia due to chronic blood loss Encounter for immunotherapy Encounter for immunotherapy COVID-19 Nonrheumatic aortic (valve) stenosis with insufficiency Elevated troponin (05/15/21) Encephalopathy (05/15/21) Seizure (05/15/21) Metastatic renal cell carcinoma to lung Dyspnea Metastasis to adrenal gland Port-[place] in place Atherosclerotic heart disease of [place] coronary artery without angina pectoris Hyperlipidemia Wears glasses Wears dentures Gastric reflux Former smoker History of primary malignant neoplasm of left kidney 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 Skin cancer Abnormal colonoscopy Essential (primary) hypertension COPD (chronic obstructive pulmonary disease) Adenocarcinoma of right lung Surgical History H/O cervical discectomy History of cataract surgery History of lobectomy of lung History of nephrectomy, left History of coronary angioplasty (01/05/04) History of coronary artery stent placement (07/17/03) Family History Sister Diabetes CAD (coronary artery disease) Mother CVA (cerebral vascular accident) CAD (coronary artery disease) Lung cancer Father CAD (coronary artery disease) Brother CAD (coronary artery disease) Social History household members: spouse Smoking Status: Former smoker Tobacco: How many years used: 40 second hand exposure: No alcohol intake: current alcohol intake frequency: a few times a month Alcohol type: beer substance use type: does not use seatbelt use: always do you feel safe at home: Yes ROS Constitutional Constitutional: Denies anorexia, fatigue, fever(s), headache(s), night sweats, weight gain or weight loss Eyes Eyes: Reports systems reviewed and no addt'l complaints, except as documented; Denies blurry vision ENT HEENT: Reports systems reviewed and no addt'l complaints, except as documented and loss taste/smell; Denies bleeding gums, epistaxis, headache(s) or mouth lesions Cardiovascular Cardiovascular: Reports systems reviewed and no addt'l complaints, except as documented; Denies chest pain with activity or edema Respiratory/Chest Respiratory/Chest: Reports systems reviewed and no addt'l complaints, except as documented and dyspnea on exertion; Denies cough, hemoptysis or wheezing Gastrointestinal Gastrointestinal: Reports systems reviewed and no addt'l complaints, except as documented; Denies abdominal pain, bloating, change in bowel habits, constipation, diarrhea, hematochezia, melena or nausea Genitourinary Genitourinary: Reports systems reviewed and no addt'l complaints, except as documented; Denies hematuria Musculoskeletal Musculoskeletal: Reports systems reviewed and no addt'l complaints, except as documented and arthralgias; Denies back pain or myalgias Integumentary Integumentary: Reports systems reviewed and no addt'l complaints, except as documented; Denies pruritus or rash Neurologic Neurologic: Reports systems reviewed and no addt'l complaints, except as documented; Denies abnormal speech, behavior changes, focal weakness, frequent falls, headache(s), memory loss, paresthesias or seizures Psychiatric Psychiatric: Reports systems reviewed and no addt'l complaints, except as documented Endocrine Endocrinology: Reports systems reviewed and no addt'l complaints, except as documented Hematologic/Lymphatic Hematologic/Lymphatic: Reports systems reviewed and no addt'l complaints, exceptas documented and easy bruising; Denies easy bleeding or lymphadenopathy Allergic/Immunologic Allergic/Immunologic: Reports systems reviewed and no addt'l complaints, except as documented Intake Vital Signs 04/12/25 13:32 05/24/25 10:28 05/24/25 10:33 Height 5 ft 5 in 5 ft 5 in 5 ft 5 in Weight: 80.456 kg BMI 29.5 BP 118/60 Blood Pressure Location Lt brachial Position Sitting Respiration 16 Pulse 73 Pulse Source Monitor Temp 99.2 F H Temperature Source Temporal Artery Pulse Oximetry (%) 92 Oxygen Delivery Method room air Intake Is patient in pain?: No Allergies No Known Allergies Allergy (Verified 05/24/25 10:33) Medications ?Medication ?Instructions ?Recorded ?Confirmed ?Type rosuvastatin 40 mg tablet (Crestor) 40 mg PO QHS YING STEROL 08/18/18 05/24/25 History carvedilol 25 mg tablet 25 mg PO BID blood pressure 04/30/21 05/24/25 History hydralazine 50 mg tablet 50 mg PO BID blood pressure 05/31/21 05/24/25 History apixaban 5 mg tablet (Eliquis) 2.5 mg (1/2 x 5 mg) PO BID #60 tabs 07/20/23 05/24/25 Rx amlodipine 10 mg tablet 10 mg PO DAILY #90 tabs 08/0905/24/25 Rx ipratropium 0.5 mg-albuterol 3 mg 3 ml inhalation Q4H PRN shortness 09/07/23 05/24/25 Rx (2.5 mg base)/3 mL nebulization of breath or wheezing #180 mL soln pembrolizumab 25 mg/mL intravenous 200 mg IV Q21D 04/0205/24/25 History solution (Keytruda) metoclopramide HCl 10 mg tablet 10 mg PO Q6H nausea an d vomiting 2 03/24/25 05/24/25 Rx (Reglan) weeks #56 tabs pantoprazole 40 mg tablet,delayed 40 mg PO DAILY 30 da ys #30 tabs 03/24/25 05/24/25 Rx release (Protonix) budesonide 3 mg 9 mg (3 x 3 mg) PO QDAY #90 ea 03/31/25 05/24/25 Rx capsule,delayed,extended release Have you fallen in the past year?: No Central Venous Access Central Venous Access: Yes Port/PICC: Port CBC May 24, 2025 reviewed in EMR Exam Physical Exam Narrative ECOG 1 Const alert and no apparent distress Constitutional Narrative: Cushingoid General Appearance: comfortable HEENT normocephalic Mouth: oral and palatal mucosa normal Eyes no scleral icterus General Eye: normal appearance of both eyes Neck full ROM, supple and no JVD Lymph Lymphatic: no lymphadenopathy noted Chest Chest Narrative: Port R IC area Chest: symmetrical chest wall rise and vascular access Resp normal respiratory effort and clear to auscultation bilaterally Cardio regular rate, regular rhythm, S1 normal heart sound, S2 normal heart sound and no murmurs GI soft to palpation, non-tender and non-distended; Negative for hepatosplenomegaly no CVA tenderness Back/Spine no thoracic nor lumbar tenderness Extremity no clubbing, cyanosis or edema Skin no rashes or lesions noted Neuro CN's II-XII intact bilaterally, moves all extremities and no focal motor deficits Speech: speech normal Gait (Neuro): normal gait, assistive device used cane and other Psych mental status grossly normal Coding Level of Care Code Off vis,est,level 4 Exam Problem Focused Diagnoses Cancer of right kidney C64.1 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 C64.9; C78.00 Malignant neoplasm metastatic to right adrenal gland C79.71 Laterality: right Regional lymph node metastasis present C77.9 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 C34.31 History of primary malignant neoplasm of left kidney Z85.528 Brain metastasis C79.31 Iron deficiency anemia due to chronic blood loss D50.0 Assessment and Plan Assessment and Plan (1) Cancer of right kidney: Status: Chronic (2) 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: Status: Chronic (3) 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 Metastatic renal cell cancer incidentally found in the right lower lobe lungresection March 12, 2021 multiple nodules. Patient is status post left nephrectomy in August 2006 for a 6.5 cm clear-cell renal cancer confined to the kidney withno lymphovascular invasion and most likely cured by the radical surgery. Patient has an incidentally (asymptomatic, not PET avid) found at least 2 solid nodules in the right kidney most consistent with primary renal cancer and is themost likely source for the metastatic RCC pathologically confirmed and the rightlower lobe of the lung in March 2021. Patient is in the intermediate risk group based on the international Metastatic Renal Cell Carcinoma Database Consortium criteria since he presents with metastatic disease de corry. Patient started systemic therapy with combination pembrolizumab and axitinib May 07, 2021. He developed a hypertensive crisis ontop of pre-existing hypertension requiring hospitalization (TIA and seizure). Axitinib has been on hold since. He was seen by cardiology (Dr. Sandoval), blood pressure medications were adjusted with better blood pressure control. Although Dr. Sandoval did not feel that axitinib is contraindicated once his blood pressure is under good control, patient is hesitant about resuming therapy with axitinib. He continued to tolerate Keytruda with no grade 3 or 4 toxicities April through August 2021 (so far reported subjective fatigue and noted a rash over the uppertrunk that responded to topical [id number] preparation). Keytruda held August 2021 due to acute kidney injury cause unclear (baseline creatinine 1.0, peak 1.9). 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 His creatinine recovered to baseline by November 2021. * Imaging (no contrast was given) September 2021 shows a marked improvement in the mass involving the right kidney and right adrenal gland. There are stable abnormalities in the chest that are nonspecific. * Imaging (no contrast) November 2021 during an acute episode of abdominal pain suggested slight worsening of the mass involving the right kidney but he had been off therapy for a while. Resumed Keytruda November 2021, recurrent rash manageable with topical steroids is likely a side effect. Slight increase in creatinine (less than 0.3 mg per DL, not mounting to grade 1 toxicity) also likely side effect of Keytruda. * Imaging August 2022 shows if any subtle minimal enlargement in the mass in the right kidney. No other evidence of progression of disease elsewhere. 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 * December 2022 had some recurrent headache and brain MRI showed if any mild increase in the size of the mass in the left posterior parietal lobe with surrounding edema improved with steroids. 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 * Imaging of the chest abdomen and pelvis most recent is March 2025 shows overall stable disease . Lung infiltrate and right pleural effusion nonspecific will be followed up. January 2025 was hospitalized with acute diarrheal illness, was started on oral steroids for provisional diagnosis of checkpoint inhibitor induced gastroenteritis, underwent sigmoidoscopy, pathology came back favoring an infectious etiology over immune mediated enteritis. Weaned off steroids over February 2025 to resume pembrolizumab with no recurrence of diarrhea. 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 Was treated with high-dose steroids gradually weaning of to be replaced with budesonide and was placed on agluten-free diet; improved 2. Non-small cell lung cancer, adenocarcinoma poorly differentiated G3 stage IIB(T3, N1, M0) status post R0 resection March 12, 2021. Tumor is EGFR negative (exons 18, 19, 20 and 21) Adjuvant systemic chemotherapy would be advisable if the patient did not have anactive ongoing 2nd malignancy that is not chemo sensitive. However immune therapy with PDL 1 inhibitor as part of the standard treatment for metastatic non-small cell lung cancer at this time and its role in adjuvant setting is being investigated and is conceivably have some effectiveness. 3. 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 4. Anemia: Of iron deficiency due to chronic GI blood loss (peptic ulcer disease) and cancer cancer its therapy. His anemia did not respond to oral iron vitamin C supplement but improved following IV iron, to relapse again by February 2023 Comorbid conditions: Smoker till February 2021, emphysema (pathology of resection 2020), hiatus hernia. 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 Degenerative spine disease. Plan: 1-resume pembrolizumab and if no recurrences this will further confirm the pathologic impression that the diarrhea was not immune mediated. 2-VEGF inhibitor targeted therapy permanently discontinued due to prior hypertensive crisis complicated with seizures from which he recovered. To consider mtor inhibitor for subsequent therapy in the future. 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 5-IV iron as needed for recurrent iron deficiency anemia from acute and chronic GI blood loss (peptic ulcer disease) . 6-advised continue systemic anticoagulation with Eliquis for incidental finding of pulmonary embolism in April 2023 at reduced dose of 2.5 Mg twice daily. There have been occasions when he stopped it by his own initiative then resumes back Angela Rodriguez MD Speech And Language Assistant, [facility] Divisions of Medical Oncology & Hematology Department of Internal Medicine [facility] [place] [id number] This note was generated using a voice recognition system software. Although itwas reviewed by the author prior to finalization, it may still contain incorrectwords, spelling, and punctuation that were not noted when reviewing prior to saving. If a clinically significant typo or inaccurately typed phrase is noted, please notify the author. Clinical Quality Measures Falls Risk Screening/Assistive Devices Have you fallen in the past year?: No 05/24/25 1056 <Electronically signed by Angela redd MD> Date _ Angela Rodriguez MD Cosigner Signature: Date (if applicable) CC: ~ [employer] Work Phone: 1(615) 483-661607-15-2025 History of Present illness Narrative* Francois Acevedo MD - 05/23/2025 11:00 AM EDT NEUROSURGERY FOLLOW UP OFFICE NOTE Dr. Francois Robin. MD Kristina, [facility] Date of visit: May 23, 2025 Patient Name: Mr.Larry Linda Arshad . Date of : 1955 Current Age: [age] year old Sex: male MRN/E# [id number] Last Office Visit: November 18, 2024 CHIEF COMPLAINT: Patient presents with: Established Patient SUBJECTIVE: The patient presents as a follow-up with imaging (MRI B -perfusion) for evaluation. This is a 69-year-old male with a PMHx of stage IV renal cell carcinoma (left kidney-2005), left total nephrectomy,grade III adenocarcinoma of the lung (03/13/2021), s/p right lobectomy with metastasis to the brain (10/2022) who was referred by Dr. Kinsey Tao for neurosurgical evaluation. In October 2022 he was found to have a 1.6 cm enhancing hemorrhagic mass in the left posterior parietal lobe. He underwent SRS (SBRT) to the metastatic lesion at [facility]. Two months following treatment MRI was completed [...] at the time. He followed up with hisheme/onc physician Dr. Angela Rodriguez on 05/27/2023 who placed a STAT referral for evaluation with Neurosurgery. He was seen for consult on 05/29/23 and was doing well on oral Decadron. He denied any recurrent seizures and was not taking any antiepileptics. Neurologically he was intact. MRI brain from April 2023 showed a mix of necrosis as well as viable tumor. MRI with perfusion was then obtained which showed e vidence of perilesional edema likely to be necrosis rather than recurrent tumor. Attempt to wean him off Decadron was not successful. He sustained a fall in October [address] was suspicious for tumor progression/edema. 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 Since then he has been seen routinely with imaging and has remained nonsurgical. He was last seen in the office on 11/18/2024 and reported that he was overall doing well. He reported persistent, slight dizziness on a daily basis as well as numbness and tingling to the right side of his body which have been ongoing for over 1 year. He continued on Decadron 0.5mg daily. MRI with perfusion was reviewed and compared to prior imaging and showed that the left temporoparietal lesion appeared smaller without evidence of increased blood flow to suggest recurrence of tumor. There was no evidence of new lesions noted. He was given a weaning schedule to come off the Decadron over 2 weeks and advised to contact the office should he develop any neurological symptoms. If not recommendation was to follow-up in 6 months with a repeat MRI with perfusion sequence prompting his visit today. Since last visit he states he is overall doing well. He denies headache, visual changes, speech deficits, seizure activity, motor or sensory deficits. He has successfully weaned off Decadron and is doing well. He presents for image review, evaluation and plan of care. SYMPTOMS: None - mild balance issues PREVIOUS CONSERVATIVE TREATMENTS: None SURGICAL RISK: Smoker: Former -quit 03/12/2021 Diabetic: No Anticoagulants / Antiplatelets: Suziequedwin (PE) Occupation: N/A PREVIOUS NEUROSURGERY: SURGERY #1: SRS (SBRT) to a solitary metastatic brain tumor on 10/28/2022 at an outside hospital. 1. Left posterior parietal - 2400 cGy in 1 fraction ONCOLOGY TREATMENT TEAM: Primary Cancer: Renal call carcinoma Hematology / Oncology - Dr. Angela Rodriguez - Immunotherapy q 3 weeks Radiation/ Oncology - Dr. Percy Tao ([facility]) PAIN EVALUATION No data found in the [...] Current Outpatient Medications Medication Sig Dispense Refill omeprazole (PRILOSEC) 20 mg capsule PLEASE SEE ATTACHED FOR DETAILED DIRECTIONS ONETOUCH DELICA PLUS LANCET 33 gauge USE TO TEST BLOOD SUGAR 2 TIMES A DAY ONETOUCH ULTRA2 METER USE TO TEST 2 TIMES DAILY ONETOUCH ULTRA TEST test strip USE TO TEST BLOOD SUGAR 2 TIMES A DAY ALCOHOL PREP PADS as directed. amLODIPine (NORVASC) 10 mg tablet Take 10 [...] the MR contrast administration guidelines link 1 each 0 No current facility-administered medications for this [...] Neurological: Negative for dizziness, seizures, syncope, weakness, light- headedness, numbness (Negative for numbness in extremities.) and headaches. Hematological: Does not bruise/bleed easily. Psychiatric/Behavioral: The patient is not nervous/anxious. Negative for depression. OBJECTIVE: BP 149/70 Pulse 70 Resp 16 Ht 5' 5 (1.65m) Wt 177 lb 0.5 oz (80.3kg) SpO2 95% BMI 29.46 kg/(m^2). PHYSICAL EXAM: Mental State : Alert. Attention span and concentration normal for patient's age. Speech normal, fluent. No receptive or expressive speech deficit. Recent and remote memory normal. Orientation : Oriented to person, place and time. Higher Cortical Function : Intact speech and language. Comprehension normal. Fund of knowledge intact for pt level of education. Cranial Nerves : II: No visual field cut, no blurring. Makes and sustains eye contact. III, IV, : No double vision or lid drooping. Pupils equal and reactive to light. Extraocular muscles intact. No nystagmus. V: Normal sensation on the face, normal jaw movements. VII: No paresis on either side. VIII: No gross hearing deficit IX: Good and equal shoulder shrugs. XII: Tongue midline, no fasciculations. Sensory: SILT. Normal Sensation in bilateral upper and bilateral lower extremities to touch and noxious stimuli. Motor: Normal muscle tone and bulk. No spasticity, tremor or uncontrollable movements. Strength: Upper Extremities : R L Deltoid 5/5 5/5 Biceps 5/5 5/5 Triceps 5/5 5/5 Wrist Ext 5/5 5/5 Wrist Flx 5/5 5/5 Hand Int 5/5 5/5 Lower Extremities : Hip Flexors 5/5 5/5 Hip Extensors 5/5 5/5 Hip Abductors 5/5 5/5 Straight leg Neg Neg Ankle dorsiflex 5/5 5/5 Ankle Plantar 5/5 5/5 Cerebellar Function : Normal finger to nose. Normal rapid alternating movements. No ataxia. Gait and Station: Normal gait. No assistive device usage. IMAGING: MRI brain WO/W IVCON (perfusion) performed on 05/18/2025 demonstrates: IMPRESSION: Continued interval decrease in size of LEFT periatrial enhancing mass with persistent peripheral elevated cerebral blood volume compatible with residual viable neoplasm. Slight interval increase in confluent nonenhancing perilesional T2/FLAIR hyperintensity in the LEFT perirolandic region, possibly evolving posttreatment change. ASSESSMENT/PLAN: 1. Secondary malignant neoplasm of brain (HCC) - ICD9: 198.3, ICD10: C79.31 - Recent MRI shows reduction in size of the lesion with no new areas of concern. Patient is off steroids and has experienced weight loss. No visual disturbances, dysmetria, or gait instability reported. Gamma Knife procedure performed in October 2022. Continues treatment with Keytruda every 3 weeks under oncologist's care. Next MRI scheduled in 6 months unless clinical changes warrant earlier imaging. Continue your oncology visits every three weeks for ongoing treatment; your next appointment is tomorrow. - Schedule your next brain MRI in six months; if you notice any new or worsening symptoms before then, let us know so we can move the scan up. - Monitor your vision, balance, and hand movements; report any changes promptly. MRI BRAIN WO/W IVCON - IV CONTRAST (RADIOLOGY PROCEDURE) - NOT ON MAR Francois Acevedo MD FOLLOW UP: Return in about 6 months (around 11/23/2025) for review of MRI with perfusion. Please Note: This note has been partially generated using [employer], a speech recognition software program, and may contain errors including punctuation, grammar, spelling, gender, and inappropriate words or phrases that pertain to the system. Recording using [employer] software for draft documentation of the visit was discussed with the patient/authorized sales training representative; all questions welcomed and answered. Patient/authorized sales training representative agreed to proceed documented in this encounterChildren[facility]07-15-2025 NoteHNO ID: [id number] Author: FRANCOIS ACEVEDO MD Service: ? Author Type: Physician Type: Progress Notes Filed: 05/23/2025 11:02 Note Text: NEUROSURGERY FOLLOW UP OFFICE NOTE Dr. Francois Acevedo MD, FACS Date of visit: May 23, 2025 Patient Name: Mr.Larry Linda Arshad Sr. Date of : 1955 Current Age: [age] year old Sex: male MRN/E# [id number] Last Office Visit: November 18, 2024 CHIEF COMPLAINT: Patient presents with: Established Patient SUBJECTIVE: The patient presents as a follow-up with imaging (MRI B -perfusion) for evaluation. This is a 69-year-old male with a PMHx of stage IV [...] SRS (SBRT) to the metastatic lesion at [facility]. Two months following treatment MRI was completed [...] recurrent seizures and was not taking any antiepileptics. Neurologically he was intact. MRI brain from April 2023 showed a mix of necrosis as well as viable tumor. MRI with perfusion was then obtained which showed evidence of perilesional edema likely to be necrosis rather than recurrent tumor. Attempt to wean him off Decadron was not successful. He sustained a fall in October [address] was suspicious for tumor progression/edema. 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 Since then he has been seen routinely with imaging and has remained nonsurgical. He was last seen in the office on 11/18/2024 and reported that he was overall doing well. He reported persistent, slight dizziness on a daily basis as well as numbness and tingling to the right side of his body which have been ongoing for over 1 year. He continued on Decadron 0.5mg daily. MRI with perfusion was reviewed and compared to prior imaging and showed that the left temporoparietal lesion appeared smaller without evidence of increased blood flow to suggest recurrence of tumor. There was no evidence of new lesions noted. He was given a weaning schedule to come off the Decadron over 2 weeks and advised to contact the office should he develop any neurological symptoms. If not recommendation was to follow-up in 6 months with a repeat MRI with perfusion sequence prompting his visit today. Since last visit he states he is overall doing well. He denies headache, visual changes, speech deficits, seizure activity, motor or sensory deficits. He has successfully weaned off Decadron and is doing well. He presents for image review, evaluation and plan of care. SYMPTOMS: None - mild balance issues PREVIOUS CONSERVATIVE TREATMENTS: None SURGICAL RISK: Smoker: Former -quit 03/12/2021 Diabetic: No Anticoagulants / Antiplatelets: Eliquis (PE) Occupation: N/A PREVIOUS NEUROSURGERY: SURGERY #1: SRS (SBRT) to a solitary metastatic brain tumor on 10/28/2022 at an outside hospital. 1. Left posterior parietal - 2400 cGy in 1 fraction ONCOLOGY TREATMENT TEAM: Primary Cancer: Renal call carcinoma Hematology / Oncology - Dr. Angela Rodriguez - Immunotherapy q 3 weeks Radiation/ Oncology - Dr. Percy Tao ([facility]) PAIN EVALUATION No data found in the [...] Current Outpatient Medications Medication Sig Dispense Refill omeprazole (more content not included)...[facility]07-10-2025 History of Present illness Narrative* Jacqui Moore RT(R) - 05/18/2025 11:00 AM EDT Radiology Service Progress Note PATIENT NAME: Kenn Arshad Sr. DATE OF SERVICE: May 18, 2025 TIME: 11:13 AM PATIENT IDENTITY VERIFICATION COMPLETED USING TWO (2) IDENTIFIERS: Name and Date of confirmedby patient verbally. FALL SCREENING: Has the patient had 2 falls in the last year or 1 fall with injury or currently using an Ambulatory Assistive Device (Walker, Cane, Wheelchair, Crutches, etc.)? No PATIENT GENDER DATA: Assigned male at PATIENT RELEVANT IMPLANT DATA REVIEWED: Yes PATIENT PRESENTS WITH AN IMPLANTABLE OR ATTACHED TOBACCO SIEVE OPERATOR: No RADIOLOGY DEPARTMENT: MR; Exam(s) Completed: Head: Routine Brain with Perfusion. Aromatherapy Administered: No PERIPHERAL IV DATA: Site assessment: Clean,Dry and Intact, Site disposition Discontinued SIGNED BY: RT Nara(R) May 18, 2025 11:13 AM documented in this encounterChildren'S [facility]07-10-2025 NoteHNO ID: [id number] Author: JACQUI MOORE RT(Raphael) Service: ? Author Type: Technologist Type: Progress Notes Filed: 05/18/2025 11:13 Note Text: Radiology Service Progress Note PATIENT NAME: Kenn Arshad Sr. DATE OF SERVICE: May 18, 2025 TIME: 11:13 AM PATIENT IDENTITY VERIFICATION COMPLETED USING TWO (2) IDENTIFIERS: Name and Date of confirmed by patient verbally. FALL SCREENING: Has the patient had 2 falls in the last year or 1 fall with injury or currently using an Ambulatory Assistive Device (Walker, Cane, Wheelchair, Crutches, etc.)? No PATIENT GENDER DATA: Assigned male at PATIENT RELEVANT IMPLANT DATA REVIEWED: Yes PATIENT PRESENTS WITH AN IMPLANTABLE OR ATTACHED TOBACCO SIEVE OPERATOR: No RADIOLOGY DEPARTMENT: MR; Exam(s) Completed: Head: Routine Brain with Perfusion. Aromatherapy Administered: No PERIPHERAL IV DATA: Site assessment: Clean,Dry and Intact, Site disposition Discontinued SIGNED BY: Jacqui Duran Anita Moore, RT(R) May 18, 2025 11:13 [facility]06-24-2025 Evaluation note* Diagnosis Onset Date Resolution Status Admit Date Brain metastasis chronic April 9:32am 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 chronic May 02, 2025 9:32am Cancer of right kidney chronic 2024 9:32am History of primary malignant neoplasm of left kidney chronic May 02, 2025 9:32am Iron deficiency anemia due to chronic blood loss chronic April 102024 9:32am 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 April 102024 9:32am 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 May 02, 2025 9:32am Regional lymph node metastasis present chronic May 02 9:32am Brain metastasis chronic May 9:38am 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 chronic May 24, 2025 9:38am Cancer of right kidney chronic 2024 9:38am History of primary malignant neoplasm of left kidney chronic May 24, 2025 9:38am Iron deficiency anemia due to chronic blood loss chronic May 092024 9:38am 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 May 092024 9:38am 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 May 24, 2025 9:38am Regional lymph node metastasis present chronic May 24 9:38am COPD (chronic obstructive pulmonary disease) chronic June 09 10:30am 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 June 09, 2025 10:30am Encounter for immunotherapy acute June 15, 2025 10:28am Brain metastasis chronic June 152024 10:28am 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 chronic June 15, 2025 10:28am Cancer of right kidney chronic 2024 10:28am History of primary malignant neoplasm of left kidney chronic June 15, 2025 10:28am Iron deficiency anemia due to chronic blood loss chronic June 15, 2025 10:28am 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 June 15, 2025 10:28am 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 June 15, 2025 10:28am Regional lymph node metastasis present chronic June 15 10:28am Anemia acute June [address], 2 025 10:20am Brain metastasis chronic June 102024 12:29pm 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 chronic July 05 12:29pm Cancer of right kidney chronic Au 2024 12:29pm History of primary malignant neoplasm of left kidney chronic July 05 12:29pm Iron deficiency anemia due to chronic blood loss chronic July 05, 2025 12:29pm 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 July 05, 2025 12:29pm 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 July 05 12:29pm Regional lymph node metastasis present chronic July 05, 2025 12:29pm Brain metastasis chronic Septembe r 2024 9:41am 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 chronic July 26, 2025 9:41am Cancer of right kidney chronic Se ptember 2024 9:41am History of primary malignant neoplasm of left kidney chronic July 26, 2025 9:41am Iron deficiency anemia due to chronic blood loss chronic Septem chema 2024 9:41am 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 Septem chema 2024 9:41am 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 July 26, 2025 9:41am Regional lymph node metastasis present chronic July 9:41am Carotid bruit acute July 112024 11:13am Essential (primary) hypertension chronic August 04, 2025 11:13am Hyperlipidemia chronic August 04, 2025 11:13am 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 July 11:13am Nonrheumatic aortic (valve) stenosis with insufficiency chronic August 04, 2025 11:13am History of coronary artery stent placement July 17, 2003 resolved Septe mber 2024 11:13am Brain metastasis chronic August 16, 2025 10:24am 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 chronic August 16 10:24am Cancer of right kidney chronic Oc tober 2024 10:24am History of primary malignant neoplasm of left kidney chronic August 16 10:24am Iron deficiency anemia due to chronic blood loss chronic Octobe r 2024 10:24am 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 Octobe r 2024 10:24am 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 August 16 10:24am Regional lymph node metastasis present chronic August 16, 2025 10:24am [facility] Work Phone: 1(564) 523-172206-24-2025 Progress note Author Verónica Meadows [facility] Note Date/Time May 02, 2025 11:1 8am [facility] [place] [address] OFFICE VISIT Date of Service: 05/02/25 1040 MR#: [id number] Acct: [id number] Name: KENN ARSHAD Rep #: [id number] : 1955 From: Verónica Leavitt ch CHARGE OUT CLERK CHARGE OUT CLERK-C Age/Sex: 69/M Location: [facility] Status: Signed HPI Subjective Date of Service 05/02/25 Chief Complaint Metastatic kidney cancer on treatment History of Present Illness Patient is a 69-year-old male smoker till February 2021 who in January 28, 2021 underwent a lung cancer screening CT scan: Showed a spiculated partially cavitary mass within the right lower lobe measuring up to 5.3 cm in maximum diameter with right hilar lymphadenopathy. February 14, 2021 PET/CT showed intensely avid right lower lobe mass consistent withmalignancy with FDG accumulation within right hilar lymph node consistent with ramon metastases and no evidence of distant metastatic disease. Small noncalcified nodules at the periphery of the right lung base with no appreciableFDG accumulation were noted. February 20, 2021 right lower lobe lung guided biopsy showed moderately to poorly differentiated adenocarcinoma of lung primary. March 08, 2021 brain MRI showed no abnormal intracranial enhancement to suggest intracranial metastases. March 13, 2021 patient underwent right video-assisted thoracoscopy converted to right muscle-sparing thoracotomy with right lower lobe lobectomy, right upper lobe wedge, right middle lobe wedge and mediastinal lymph node dissection by : Pathology: A. Right upper lobe wedge resection negative for malignancy. B. Right middle lobe wedge resection negative for malignancy. C. Lymph node right pulmonary ligament negative for metastatic carcinoma. D. Lymph node 11 R right middle negative for malignancy. E. Right lower lobe lobectomy multifocal adenocarcinoma grade 3. Incidentally found multiple metastatic nodules of clear-cell renal cell carcinoma and 1 of 5 peribronchial lymph nodes positive for metastatic carcinoma. F. Lymph node 11 R anterior 1 lymph node positive for metastatic carcinoma. G. Lymph node 11 R posterior negative for metastatic carcinoma. H. Lymph node level 7 1 lymph node negative for metastatic carcinoma I. Lymph node level 7 1 lymph node negative for metastatic carcinoma. J. Lymph node level 4R lower paratracheal negative for metastatic carcinoma K. Lymph node right upper paratracheal negative for metastatic carcinoma. Pathologic staging T3N1. EGFR mutation negative. Patient's past medical history is notable for being status post left total nephrectomy in 2005 for kidney cancer. He has been a smoker most of his adult life quit in February 2021 and consumes an average 2 beers per day. April 18, 2021 renal ultrasound: IMPRESSION: Status post left nephrectomy. 2. Hypoechoic solid nodules seen in the right kidney as described. Neoplastic process should be ruled out. Correlation with a CT scan is recommended for further evaluation. 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 May 02, 2021 CT abdomen and pelvis: IMPRESSION: 1. Small right pleural effusion. 2. Solid enhancing masses of the right kidney and right adrenal gland worrisome for metastatic renal cell carcinoma. No retroperitoneal lymphadenopathy. 3. Large left medially in hernia containing a segment of the descending colon and small bowel without bowel obstruction. September 25, 2021 CT chest abdomen and pelvis: IMPRESSION: Status post left nephrectomy. Interval improvement in the previously seen right adrenal mass. The remainder of the examination is unchanged. June 13, 2021 CT abdomen and pelvis: IMPRESSION: 1. Reidentification of large lobular mass of the right adrenal gland measuring at least 4 cm, suspicious for metastatic disease. Without contrast this is poorly evaluated but on the prior study with contrast a heterogeneous mass was visualized. 2. Reidentification of a rounded partially exophytic mass in the medial aspect of the midpole of the right kidney measuring at least 2.56 cm also demonstrated enhancement on the prior study which is suspicious for malignancy. September 25, 2021 CT chest abdomen and pelvis: IMPRESSION: Status post left nephrectomy. Interval improvement in the previously seen right adrenal mass. The remainder of the examination is unchanged. December 03, 2021 CT abdomen and pelvis, for an episode of acute abdominal pain: IMPRESSION: No acute findings. Suspect slight interval enlargement of the lower pole mass in the right kidney compatible with renal cell carcinoma, not well evaluated without IV contrast. Left flank hernia containing large and small bowel loops, not fully visible. No evidence of obstruction. March 04, 2022 CT chest abdomen and pelvis: IMPRESSION: 1. 3.7 x 3.2 x 3.4 cm mass concerning for neoplasm in the mid to lower right kidney is grossly stable from 12/03/2021. 2. No metastatic disease in the remainder of the exam. May 27, 2022 CT chest abdomen and pelvis: IMPRESSION: Stable examination. Exophytic soft tissue mass in the posterior medial aspect of the mid to lower aspect of the right kidney. Stable hyperplasia of the right adrenal gland. September 08, 2022 CT chest abdomen and pelvis: IMPRESSION: Stable CT scan of the thorax. Slight enlargement of the previously seen lobular solid mass in the medial mid lower portions of the right kidney. October 14, 2022 brain MRI: IMPRESSION: 1.6 cm enhancing mass in the left posterior parietal lobe containing old hemorrhage concerning for hemorrhagic metastasis.? Large amount of surrounding edema with partial effacement of the left lateral ventricle. Paranasal sinus inflammatory disease. Chronic involutional white matter changes. December 16, 2022 brain MRI: IMPRESSION: 1.? No MRI evidence of acute or subacute ischemic infarct or new brain metastatic disease.? 2.? Mild increase in size of enhancing metastatic mass in the left posterior parietal lobe measuring 1.2 x 1.6 cm, previously 1.4 x 1.2 cm. No obvious significant change of the vasogenic edema surrounding the enhancing metastatic mass in the left posterior parietal lobe.? 3.? Mild improvement of mucosal edema in the ethmoid sinuses. December 29, 2022 CT chest abdomen and pelvis: FINDINGS: CHEST Lungs are mildly hyperexpanded, with chronic interstitial changes and nonspecific pleural thickening in both hemithoraces. There is no suspicious noncalcified mass or nodule, organized infiltrate or effusion. Thyroid gland is unremarkable. Normal heart and pericardium.? There are calcifications of the coronary arteries. No suspicious axillary, mediastinal, or perihilar lymph nodes. . Normal unenhanced pulmonary arteries. ? Peripheral calcifications in the thoracic aorta without aneurysm. Bony structures show mild degenerative changes. ABDOMEN Liver is unremarkable aside from a simple cyst in the left lobe.? Normal gallbladder and extrahepatic biliary system.? Normal spleen.? Normal pancreas. Normal bilateral adrenal glands. There has been a previous left nephrectomy. No suspicious soft tissue mass or adenopathy in the left nephrectomy bed. Right kidney shows a stable concerning 3.95 x 3.71 cm mass in the lower pole. 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 Normal visualized stomach.? Normal small intestine.? Normal colon.? The appendix is visualized and appears normal. Appendix seen on coronal recon images 50 through 60 There is diffuse atherosclerotic calcification of the abdominal aorta with elongation and tortuosity, but without a demonstrated aneurysm.? Normal inferior vena cava.? Scattered subcentimeter in short axis dimension unchanged mesenteric and retroperitoneal lymph nodes. Stable left-sided spigelian hernia. Bony structures show degenerative change PELVIS Normal urinary bladder. There is no pelvic fluid.? There is no pelvic lymphadenopathy or mass lesion. Normal visualized pelvic arteries. Fat-containing right inguinal hernia.? There are diffuse degenerative changes of the visualized lumbar spine, and pelvis. IMPRESSION: There is a persistent suspicious solid mass in the lower pole of the right kidney measuring 3.95 x 3.71 cm which is anything is slightly increased in size since the previous study from August. 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 Stable simple hepatic cyst, no specific follow-up needed.? Chronic interstitial changes in both lung post without a superimposed acute pulmonary process? Degenerative bony changes? Stable-appearing left spigelian hernia January 21, 2023 brain MRI: IMPRESSION: Persistent partially hemorrhagic metastasis in the left parietal lobe with vasogenic edema which is relatively stable in size since prior study. No new lesions identified March 13, 2023 chest abdomen and pelvis CT: IMPRESSION: 1.? Slightly larger right posterior mediastinal lymph node of uncertain significance.? 2.? Stable solid 4.2 cm right renal mass. March 16, 2023 brain MRI: IMPRESSION: 1.? There is moderate interval enlargement and doubling in size of the mass in the posterior medial aspect and middle one third region of the left parietal lobe at the periphery of the splenium of the corpus callosum -the primary concern is for progression of the malignancy, however post radiation necrosis and flaring can be considered if there is history of recent radiation treatment to this region. MR spectroscopy can also be acquired to help in differentiating the processes. Clinical consult with neurosurgery is recommended. The left parietal mass has a thick enhancing rim with central necrosis and now measures 3.10 x 2.28 cm compared to the previous measurement of 1.2 x 1.6 cm. 2.? The surrounding vasogenic edema has slightly increased and is extended to the parasagittal and posterior aspect of the superior segment of the occipital lobe and has slightly increased in the anterior to posterior dimension and superior and posterior aspect of the left parietal lobe when compared to the prior study compared images / series 6 on the old study and 18/25 series 6 on the current study. 3.? There is also slightly more mass effect on the occipital horn of the left lateral ventricle compared to the prior study. Minimal midline shift of 1 to 2 mm is present. 4.? No hydrocephalus is seen. There is no transtentorial herniation. 5.? There are no visualized metastatic lesions in the remaining aspects of the cerebral hemispheres or in the posterior fossa April 16, 2023 MRI spectroscopy at [facility] Main campus: Impression: Spectroscopy and perfusion findings medial and dorsal aspects of the treated presumed left parietal metastasis compatible with viable tumor with more extensive surrounding radiation necrosis. May 02, 2023 CTA; emergency room visit because of shortness of breath to rule out PE IMPRESSION: No evidence of acute pulmonary embolism. Small chronic nonocclusive right lower lobar pulmonary embolism. New 3 mm spiculated right lower lobe nodule and left lower lobe pulmonary nodules measuring up to 8 mm, suspicious for metastases. Progression of mild mediastinal and hilar lymphadenopathy. Mild pneumonitis or atypical pneumonia with mosaic attenuation pattern and groundglass opacities with mild septal thickening most confluent in the left upper lobe inferiorly. Chronic scarring in the right lung with pleural thickening. Enhancing right renal mass. Left nephrectomy. These images were reviewed by myself and radiology colleague (courtesy second opinion with question biopsy) and new right lower lobe nodule was not verifiedand by no means would be amenable to biopsy at the size. June 28, 2023 CT chest abdomen and pelvis: IMPRESSION: Stable probable hepatic cyst. Relatively stable right renal masses as noted. Status post left nephrectomy. Mild peripheral interstitial thickening in the lungs. Mild mediastinal adenopathy. October 05, 2023 CT chest abdomen and pelvis: IMPRESSION: 1. Improved bilateral hazy groundglass opacities/infiltrates. 2. Right middle lobe pleural-based density likely due to scarring and postoperative changes unchanged. 3. No evidence of new metastatic disease. 4. Status post left nephrectomy. 5. Left lateral ventricle hernia containing bowel loops and colon without evidence of obstruction unchanged. 6. Bilateral inguinal hernias containing fat. 7. No focal acute inflammatory process. January 13, 2024 chest abdomen and pelvis CT: IMPRESSION: 1. Chronic changes in the lungs unchanged. 2. Stable 7 mm left lower lobe nodule. 3. Stable right paratracheal adenopathy unchanged 4. No evidence of new metastatic disease. 5. Status post left nephrectomy. 6. Stable solid mass in the right kidney likely malignant until proven otherwise. 7. Additional nonacute changes as described above. 8. Further follow-up exam is needed. April 27, 2024 chest abdomen and pelvis CT: IMPRESSION: Stable examination. August 09, 2024 CT chest abdomen and pelvis: IMPRESSION: 1. Solid right-sided renal nodule suggests renal cell carcinoma. This appears unchanged since previous CT. 2. Status post left-sided nephrectomy. 3. Left flank ventral hernia containing bowel. 4. Left basilar airspace disease and/or atelectasis. 5. Unchanged appearance to right middle lobe subpleural nodule. January 10, 2025 CT chest abdomen and pelvis: IMPRESSION: 1. No CT evidence of acute pulmonary embolism. 2. Stable right renal mass suggestive of renal cell carcinoma. Exophytic cyst and lipoma/angiomyolipoma are also noted in the right kidney. 3. Nodular densities in the right middle and right lower lobe which may represent atypical infection versus neoplastic/metastatic disease. 4. Hepatic steatosis and hepatomegaly 5. Mild intrahepatic biliary dilatation 6. Mild splenomegaly January 18, 2025 sigmoidoscopy: SIGMOID COLON, BIOPSY: - Focal active colitis with acute cryptitis and crypt abscess ? see note. - Note: The focal and limited nature of the inflammation, plus lack of apoptosisor crypt distortion/drop ou,t and without increased eosinophils, favors focal active colitis due to bowel prep artifact or medication injury (eg: NSAIDs) or resolving/mild infection over immunotherapy-induced colitis. March 21, 2025 CT chest abdomen and pelvis: IMPRESSION: New right pleural effusion with infiltration in both lungs worse on the right side as described. Status post left nephrectomy. Persistent masses in the right kidney. March 22, 2025 EGD: Impressions : - Non-severe reflux esophagitis with no bleeding. - Erythematous mucosa in the gastric body. - Duodenal mucosal changes seen, diagnostic of celiac disease. Biopsied. Pathology: MICROSCOPIC DIAGNOSIS A. Small bowel, duodenum, biopsy: - Marked villous blunting with acute inflammation and patchy mild increase of intraepithelial lymphocytes Trichrome stain highlights patchy mild thickening of the subepithelial collagen table. The consensus opinion is: Collagenous colitis pattern of injury - see comment. Comment: There is atrophy of villi with increased intraepithelial lymphocytes, scattered surface neutrophilic inflammation and increased subepithelial collagen. This is consistent with collagenous colitis pattern of injury which is a non-specific pattern of injury. The differential diagnosis includes celiac disease and medication-related injury. While these features can be seen with immunocheckpoint inhibitor enteritis, there would usually be more prominent acute inflammation and increased apoptosis. Correlation with clinical impression, medication history, and serologic studies is recommended Treatment summary and response: * 2005 left radical nephrectomy. * March 13, 2021 video-assisted thoracoscopy converted to right muscle-sparing thoracotomy with right lower lobe lobectomy, right upper lobe wedge, right middle lobe wedge and mediastinal lymph node dissection. * May 07, 2021 pembrolizumab plus axitinib for metastatic RCC. Axitinib discontinued May 2021 due to hypertensive crisis. * Keytruda single agent May 07 ?July 30, 2021 (5 cycles) [place] but held in August 2021 due to ELANA. Resumed November 26, 2021 with no recurrent. Held again January 2025 when he developed acute colitis. To resume March 13, 2025 * Stereotactic brain radiation at [facility] October 28, 2022 a single fraction with 10 MV photons. Interval History Patient is here in the clinic accompanied by spouse for an evaluation anticipating he will begin c60 pembrolizumab. Concerns today include rash involving RLE x 2 months. Pruritic lesions started around the medial ankle, has progressed upward into the right thigh. Hydrocortisone and benadryl are ineffective. He describes as tolerable. He was also instructed to continue Protonix and weaning off budesonide per GI. Now eating well without N/V. Adherent to GF diet as advised by GI. Otherwise feels well. Energy improved. [facility] Medical History MRSA (methicillin resistant staph aureus) culture positive Acute infective gastroenteritis COPD exacerbation History of steroid therapy Low iron Seizures Shortness of breath on exertion History of pain when walking History of edema History of echocardiogram Cardiology follow-up encounter Cervical spinal cord injury Cervical stenosis of spine Numbness in right leg RUE numbness Diarrhea Hypokalemia Duodenal ulcer Anemia Diabetes mellitus, type 2 Hyperglycemia Hyponatremia Thrombocytopenia Pulmonary emboli COPD (chronic obstructive pulmonary disease) Imbalance Brain metastasis Pneumonia Sinus congestion Hx of radiation therapy Brain metastasis Frequent headaches Epistaxis Contact with or suspected exposure to other viral communicable disease Iron deficiency anemia due to chronic blood loss Encounter for immunotherapy Encounter for immunotherapy COVID-19 Nonrheumatic aortic (valve) stenosis with insufficiency Elevated troponin (05/15/21) Encephalopathy (05/15/21) Seizure (05/15/21) Metastatic renal cell carcinoma to lung Dyspnea Metastasis to adrenal gland Port-A-Cath in place Atherosclerotic heart disease of [place] coronary artery without angina pectoris Hyperlipidemia Wears glasses Wears dentures Gastric reflux Former smoker History of primary malignant neoplasm of left kidney 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 Skin cancer Abnormal colonoscopy Essential (primary) hypertension COPD (chronic obstructive pulmonary disease) Adenocarcinoma of right lung Surgical History H/O cervical discectomy History of cataract surgery History of lobectomy of lung History of nephrectomy, left History of coronary angioplasty (01/05/04) History of coronary artery stent placement (07/17/03) Family History Sister Diabetes CAD (coronary artery disease) Mother CVA (cerebral vascular accident) CAD (coronary artery disease) Lung cancer Father CAD (coronary artery disease) Brother CAD (coronary artery disease) Social History household members: spouse Smoking Status: Former smoker Tobacco: How many years used: 40 second hand exposure: No alcohol intake: current alcohol intake frequency: a few times a month Alcohol type: beer substance use type: does not use seatbelt use: always do you feel safe at home: Yes ROS ROS Narrative Negative except as documented in the interval HPI Intake Vital Signs 04/12/25 13:32 05/02/25 10:40 Height 5 ft 5 in 5 ft 5 in Weight: 171 lb 171 lb BMI 28.4 28.4 BP 125/68 H 127/65 H Blood Pressure Location Lt brachial Lt brachial Position Sitting Sitting Respiration 16 18 Pulse 75 73 Pulse Source Monitor Monitor Temp 99.2 F H 98.8 F Temperature Source Temporal Artery Temporal Artery Pulse Oximetry (%) 93 94 Oxygen Delivery Method room air room air Intake Accompanied by: Is patient in pain?: No Allergies No Known Allergies Allergy (Verified 05/02/25 10:44) Medications ?Medication ?Instructions ?Recorded ?Confirmed ?Type rosuvastatin 40 mg tablet (Crestor) 40 mg PO QHS YING STEROL 08/18/18 05/02/25 History carvedilol 25 mg tablet 25 mg PO BID blood pressure 04/30/21 05/02/25 History hydralazine 50 mg tablet 50 mg PO BID blood pressure 05/31/21 05/02/25 History apixaban 5 mg tablet (Eliquis) 2.5 mg (1/2 x 5 mg) PO BID #60 tabs 07/20/23 05/02/25 Rx amlodipine 10 mg tablet 10 mg PO DAILY #90 tabs 08/0905/02/25 Rx ipratropium 0.5 mg-albuterol 3 mg 3 ml inhalation Q4H PRN shortness 09/07/23 05/02/25 Rx (2.5 mg base)/3 mL nebulization of breath or wheezing #180 mL soln pembrolizumab 25 mg/mL intravenous 200 mg IV Q21D 04/0205/02/25 History solution (Keytruda) metoclopramide HCl 10 mg tablet 10 mg PO Q6H nausea an d vomiting 2 03/24/25 05/02/25 Rx (Reglan) weeks #56 tabs pantoprazole 40 mg tablet,delayed 40 mg PO DAILY 30 da ys #30 tabs 03/24/25 05/02/25 Rx release (Protonix) budesonide 3 mg 9 mg (3 x 3 mg) PO QDAY #90 ea 03/31/25 05/02/25 Rx capsule,delayed,extended release Have you fallen in the past year?: No Central Venous Access Central Venous Access: Yes Port/PICC: Port (right) Laboratory Tests 05/02/25 09:45 WBC 5.9 Hgb 11.2 L Hct 34.8 L Plt Count 172 Absolute Neuts (auto) 3.9 Sodium 138 Potassium 3.2 L Chloride 109 H Carbon Dioxide 17.6 L BUN 15 Creatinine 0.85 Glucose 105 H Calcium 8.5 Phosphorus 3.6 Magnesium 1.9 Total Bilirubin 0.30 AST 16 ALT 13 Alkaline Phosphatase 46 Albumin 3.4 Exam Physical Exam Narrative ECOG 1 Const alert and no apparent distress Constitutional Narrative: Cushingoid General Appearance: comfortable HEENT normocephalic Mouth: oral and palatal mucosa normal Eyes no scleral icterus General Eye: normal appearance of both eyes Neck full ROM, supple and no JVD Lymph Lymphatic: no lymphadenopathy noted Chest Chest Narrative: Port R IC area Chest: symmetrical chest wall rise and vascular access Resp normal respiratory effort and clear to auscultation bilaterally Cardio regular rate, regular rhythm, S1 normal heart sound, S2 normal heart sound and no murmurs GI soft to palpation, non-tender and non-distended; Negative for hepatosplenomegaly no CVA tenderness Back/Spine no thoracic nor lumbar tenderness Extremity no clubbing, cyanosis or edema Skin no rashes or lesions noted Neuro CN's II-XII intact bilaterally, moves all extremities and no focal motor deficits Speech: speech normal Gait (Neuro): normal gait, assistive device used cane and other Psych mental status grossly normal Coding Level of Care Code Off vis,est,level 4 Exam Problem Focused Diagnoses Cancer of right kidney C64.1 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 C64.9; C78.00 Malignant neoplasm metastatic to right adrenal gland C79.71 Laterality: right Regional lymph node metastasis present C77.9 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 C34.31 History of primary malignant neoplasm of left kidney Z85.528 Brain metastasis C79.31 Iron deficiency anemia due to chronic blood loss D50.0 Assessment and Plan Assessment and Plan (1) Cancer of right kidney: Status: Chronic (2) 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: Status: Chronic (3) 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 Qualifiers: Laterality: right Qualified Code(s): C79.71 - Secondary malignant neoplasm of right adrenal gland (4) 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 (5) 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: Status: Chronic (6) History of primary malignant neoplasm of left kidney: Status: Chronic Comment: Status post left nephrectomy in 2005 (7) Brain metastasis: Status: Chronic Comment: SBRT at [facility] November 2022 (8) Iron deficiency anemia due to chronic blood loss: Status: Chronic Orders: Orders CBC W/Diff, Automated Today C34.31 - Malignant neoplasm of lower lobe, right bronchus or lung, C64.1 - Malignant neoplasm of right kidney, except renal pelvis Comprehensive Metabolic Profil Today C64.1 - Malignant neoplasm of right kidney, except renal pelvis Phosphorus Today C64.1 - Malignant neoplasm of right kidney, except renal pelvis Plan 69-year-old male smoker till February 2021 with: 1. Metastatic renal cell cancer incidentally found in the right lower lobe lungresection March 12, 2021 multiple nodules. Patient is status post left nephrectomy in August 2006 for a 6.5 cm clear-cell renal cancer confined to the kidney withno lymphovascular invasion and most likely cured by the radical surgery. Patient has an incidentally (asymptomatic, not PET avid) found at least 2 solid nodules in the right kidney most consistent with primary renal cancer and is themost likely source for the metastatic RCC pathologically confirmed and the rightlower lobe of the lung in March 2021. Patient is in the intermediate risk group based on the international Metastatic Renal Cell Carcinoma Database Consortium criteria since he presents with metastatic disease de corry. Patient started systemic therapy with combination pembrolizumab and axitinib May 07, 2021. He developed a hypertensive crisis ontop of pre-existing hypertension requiring hospitalization (TIA and seizure). Axitinib has been on hold since. He was seen by cardiology (Dr. Sandoval), blood pressure medications were adjusted with better blood pressure control. Although Dr. Sandoval did not feel that axitinib is contraindicated once his blood pressure is under good control, patient is hesitant about resuming therapy with axitinib. He continued to tolerate Keytruda with no grade 3 or 4 toxicities April through August 2021 (so far reported subjective fatigue and noted a rash over the uppertrunk that responded to topical tfol-dvo-vtrwyup preparation). Keytruda held August 2021 due to acute kidney injury cause unclear (baseline creatinine 1.0, peak 1.9). 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 His creatinine recovered to baseline by November 2021. * Imaging (no contrast was given) September 2021 shows a marked improvement in the mass involving the right kidney and right adrenal gland. There are stable abnormalities in the chest that are nonspecific. * Imaging (no contrast) November 2021 during an acute episode of abdominal pain suggested slight worsening of the mass involving the right kidney but he had been off therapy for a while. Resumed Keytruda November 2021, recurrent rash manageable with topical steroids is likely a side effect. Slight increase in creatinine (less than 0.3 mg per DL, not mounting to grade 1 toxicity) also likely side effect of Keytruda. * Imaging August 2022 shows if any subtle minimal enlargement in the mass in the right kidney. No other evidence of progression of disease elsewhere. 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 * December 2022 had some recurrent headache and brain MRI showed if any mild increase in the size of the mass in the left posterior parietal lobe with surrounding edema improved with steroids. 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 * Imaging of the chest abdomen and pelvis most recent is March 2025 shows overall stable disease . Lung infiltrate and right pleural effusion nonspecific will be followed up. January 2025 was hospitalized with acute diarrheal illness, was started on oral steroids for provisional diagnosis of checkpoint inhibitor induced gastroenteritis, underwent sigmoidoscopy, pathology came back favoring an infectious etiology over immune mediated enteritis. Weaned off steroids over February 2025 to resume pembrolizumab with no recurrence of diarrhea. 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 Was treated with high-dose steroids gradually weaning of to be replaced with budesonide and was placed on agluten-free diet; improved 2. Non-small cell lung cancer, adenocarcinoma poorly differentiated G3 stage IIB(T3, N1, M0) status post R0 resection March 12, 2021. Tumor is EGFR negative (exons 18, 19, 20 and 21) Adjuvant systemic chemotherapy would be advisable if the patient did not have anactive ongoing 2nd malignancy that is not chemo sensitive. However immune therapy with PDL 1 inhibitor as part of the standard treatment for metastatic non-small cell lung cancer at this time and its role in adjuvant setting is being investigated and is conceivably have some effectiveness. 3. 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 4. Anemia: Of iron deficiency due to chronic GI blood loss (peptic ulcer disease) and cancer cancer its therapy. His anemia did not respond to oral iron vitamin C supplement but improved following IV iron, to relapse again by February 2023 Comorbid conditions: Smoker till February 2021, emphysema (pathology of resection 2020), hiatus hernia. 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 Patient admits that he is not taking. Degenerative spine disease. Plan: 1-resume pembrolizumab and if no recurrences this will further confirm the pathologic impression that the diarrhea was not immune mediated. cycle 60 today. 2-VEGF inhibitor targeted therapy permanently discontinued due to prior hypertensive crisis complicated with seizures from which he recovered. To consider mtor inhibitor for subsequent therapy in the future. 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 5-IV iron as needed for recurrent iron deficiency anemia from acute and chronic GI blood loss (peptic ulcer disease) . 6-advised continue systemic anticoagulation with Eliquis for incidental finding of pulmonary embolism in April 2023. He self reduced to half dose then stopped altogether sometime in 2024 disease. 7- Rash- involving RLE only. 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 Advise he schedule a visit with his human services program specialist. RTO 05/24/25 for ?c61 pembrolizumab. Clinical Quality Measures Falls Risk Screening/Assistive Devices Have you fallen in the past year?: No 05/02/25 1118 <Electronically signed by Verónica GALINDO> Date _ Verónica GALINDO Cosigner Signature: Date (if applicable) CC: ~ [facility] Work Phone: 1(415) 518-323606-10-2025 History of Present illness Narrative* Monalisa Sanford MA - 04/18/2025 3:40 PM EDT After obtaining consent, and per orders of Dr. Jennings , injection of Pneumococcal 20 given in Right arm by Monalisa Sanford . Patient instructed to remain in clinic for 20 minutes afterwards, and to report any adverse reaction to me immediately. * Jacob Jennings DO - 04/18/2025 3:40 PM EDT Images from the original note were not included. [facility] - [address] [facility] [address] Dept: [phone] Dept Chief Complaint: Kenn Arshad is an 69 y.o. male here for an annual wellness visit. With multiple health problems presents for annual wellness exam. Recently was hospitalized for repeat EGD was found to have celiac disease. Watching his diet. Received IV iron for chronic iron deficiency anemia feeling a lot better. Weight is stable off prednisone. Will be getting consideration for restarting Keytruda for his metastatic lung and renal cancer. 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 Current Medications[1] Also reviewed during this visit: Surg Hx Fam Hx The following health maintenance schedule was reviewed with the patient and provided in printed form in the after visit summary: Health Maintenance Topic Date Due Echocardiogram Never done Medicare Annual Wellness (AWV) Never done Derm Melanoma Skin Check Never done Diabetes: Foot Exam Never done Diabetes: Retinopathy Screening Never done Diabetes: Dental Exam Never done Hepatitis C Screening Never done DTaP/Tdap/Td Vaccines (1 - Tdap) Never done Zoster Vaccines (1 of 2) Never done RSV Immunization for Adults (1 - Risk 60-74 years 1-dose series) Never done Diabetes: Hemoglobin A1C 05/17/2022 Diabetes: Urine Albumin-Creatinine Ratio for Kidney Health 08/21/2022 Colorectal Cancer Screening 02/22/2024 COVID-19 Vaccine ( season) 2024 Lipid Panel 01/08/2025 Creatinine Level 12/30/2025 Potassium Level 12/30/2025 Diabetes: Estimated Glomerular Filtration Rate for Kidney Health 12/30/2025 Depression Screening 04/18/2026 Influenza Vaccine Completed Pneumococcal Vaccine: 50+ Years Completed RSV Immunization under 20 Months Aged Out HIB Vaccines Aged Out Hepatitis B Vaccines Aged Out IPV Vaccines Aged Out Hepatitis A Vaccines Aged Out Meningococcal Vaccine Aged Out Rotavirus Vaccines Aged Out HPV Vaccines Aged Out Meningococcal B Vaccine Aged Out List of current healthcare providers: Patient Care Team: Jacob Jennings DO as PCP - General Orders Placed This Encounter Procedures Pneumococcal conjugate vaccine 20-valent IM (PREVNAR 20) Review of Systems reviewed chart again in length. Feeling better. Weight is up. No heartburn. No recent emesis or diarrhea. Blood count is improving. No recent angina or chest pain. Chronic cough is unchanged. Worried about recurrent risk for pneumonia. Will be getting some type of chemotherapy started up. Overall feeling pretty positive but having persistent right shoulder numbness and right armtingling despite his cervical spine surgery last December. He would like to know what is wrong. No substantial neck or radicular pain just tingling the upper extremity. His strength is preserved.No increased with Valsalva maneuvers. He has had MRI imaging of his brain. Concerned about rotator cuff issues. Physical Exam alert and cooperative. No acute distress. Well-hydrated. Nonicteric. He appears healthier. No JVD adenopathy or thyroid lesions. No carotid bruits. Heart is regular gallops or murmurs. Lungs have upper rhonchi that clears somewhat with cough. Abdomen obese nontender without pain hepato splenomegaly masses or bruits. No adenopathy. Extremities have some scaliness and skin dryness but no overt lesions. Some venous insufficiency is noted. Pulses are adequate. Negative Spurling's. There is no motor loss of the arms or legs. All rotator cuff exam is normal. Negative drop arm empty can sign. He can push off his buttock and touch his mid thoracic spine. Biceps intact. Objective : BP 130/70 Pulse 88 Temp 36.6 C (97.9 F) (Temporal) Ht 5' 5 (1.651 m) Wt 172 lb (78 kg) SpO2 95% BMI 28.62 kg/m No results found. Subjective : Health Risk Assessment: General: General In general, how would you say your health is?: Good In the past 7 days, have you experienced any of the following: New or Increased Pain, New or Increased Fatigue, Loneliness, Social Isolation, Stress or Anger?: No Do you get the social and emotional suppport you need?: Yes Health Habits/Nutrition: Health Habits / Nutrition On average, how many days per week do you engage in moderate to strenous exercise (like a brisk walk)?: 4 days On average, how man minutes do you engage in exercise at this level?: 40 min Have you lost any weight without trying in the past 3 months? : No Have you seen the dentist within the past year?: (!) No Hearing/ Vision: Hearing / Vision Do you or your family notice any trouble with your hearing that hasn't been managed with hearing aids?: No Do you have difficulty driving, watching TV, or doing any of your daily activities because of your eyesight?: No Have you had an eye exam within the past year?: (!) No No results found. Interventions: Vision concerns: Patient declines any further evaluation / treatment for this issue Safety: Safety Do you have a working smoke detector?: Yes Do you have any tripping hazards - loose or unsecured carpets or rugs?: No Do you have any tripping hazards - clutter in doorways, halls, or stairs?: No Do you have either shower bars, grab bars, non-slip mats or non-slip surfaces in your shower or bathtub? : Yes Do all your stairways have a railing or banister? : Yes Do you fasten your seatbelt when you are in a car?: Yes ADL: ADL In the past 7 days, did you need help from others to perform any of the following everyday activities: Eating, dressing, grooming,bathing, toileting, or walking / balance? : No In the past 7 days, did you need help from others to take care of any of the following: laundry, housekeeping, banking / finances,shopping, telephone use, food preparation, transportation, or taking medications? : No Living Will: Living Will Do you have a living will?: No Interventions: Patient declines ACP discussion / assistance Cognitive: Cognitive Screening: Mini-Cog Clock Drawing Test (CDT): (!) 0 Words Recalled: 3 Total Score: 3 Total Score Interpretation: Normal Mini-Cog Hypertension: No Fall Risk: Fall Risk One or more falls in the last year:: No Advised to use a cane or walker to get around safely:: No Feels unsteady when walking:: No Steadies self on furniture while walking at home:: No Worried about falling:: Yes Depression Screening: Over the past 2 weeks, how often have you been bothered by any of the following problems? Little interest or pleasure in doing things: Not at all Feeling down, depressed, or hopeless: Not at all Patient Health Questionnaire-2 Score: 0 Interventions: Patient declines any further evaluation / treatment for this issue Tobacco Use: Tobacco Use History[2] Alcohol Use: Audit Alcohol Screening Q1: How often do you have a drink containing alcohol?: Never 1. Encounter for subsequent annual wellness visit (AWV) in Medicare patient (Primary) Stable, encouraged better low-carb and low gluten meals with exercise and weight loss as tolerated 2. Adenosquamous carcinoma of lung, left (HCC) Unsure stability, follow-up with oncology 3. Chronic bronchitis, unspecified chronic bronchitis type (HCC) Stable, continue as needed DuoNeb 4. 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) Stable follow-up with oncology 5. History of pulmonary embolism Stable, encouraged to take Eliquis twice daily as recommended 6. Hypercholesterolemia Stable, continue Crestor 7. Coronary artery disease involving [place] coronary artery of [place] heart without angina pectoris Stable, continue Crestor 8. Essential hypertension Stable, continue amlodipine, carvedilol, Apresoline 9. History of renal carcinoma Stable, follow-up with oncology 10. Cervical radiculopathy due to degenerative joint disease of spine Recurrent symptoms of paresthesias. Follow-up with spinal surgery as discussed 11. Celiac disease Stable, improving, gluten-free diet [1] Current Outpatient Medications Medication Sig Dispense Refill carvedilol (Coreg) 25 MG tablet Take 1 tablet (25 mg) by mouth 2 times daily (with meals). 180 tablet 1 hydrALAZINE (Apresoline) 50 MG tablet Take 1 tablet (50 mg) by mouth 2 times daily. 180 tablet 1 ipratropium-albuterol (Duo-Neb) 0.5-2.5 mg/3 mL nebulizer solution Take 3 mL by nebulization three times daily. 180 mL 11 nitroglycerin (Nitrostat) 0.[address] 1 tablet (0.4 mg) under the tongue every 5 minutesas needed for chest pain. 90 tablet 0 omeprazole (PriLOSEC) [address] capsule Take 1 capsule (20 mg) by mouth Daily as needed (reflux). 90capsule 1 pembrolizumab (Keytruda) 100 MG/4ML chemo injection Infuse 200 mg into a venous catheter. predniSONE (Deltasone) 10 MG tablet 10 mg every other day. Takes 5 mg on opposite days amLODIPine (Norvasc) 10 MG tablet Take 1 tablet (10 mg) by mouth daily. 90 tablet 1 apixaban (Eliquis) 2.5 MG tablet Take 1 tablet (2.5 mg) by mouth 2 times daily for 360 doses. 180 tablet 1 ipratropium-albuterol (Duo-Neb) 0.5-2.5 mg/3 mL nebulizer solution Take 3 mL by nebulization three times daily. 180 mL 11 rosuvastatin (Crestor) 40 MG tablet Take 1 tablet (40 mg) by mouth daily. 90 tablet 1 No current facility-administered medications for this visit. [2] Social History Tobacco Use Smoking Status Former Current packs/day: 0.00 Average packs/day: 1.5 packs/day for 40.1 years (60.2 ttl pk-yrs) Types: Cigarettes Start date: 02/01/1981 Quit date: 03/12/2021 Years since quittin.1 Smokeless Tobacco Never documented in this [facility]06-10-2025 Instructions* Patient Instructions* Jacob Jennings DO - 04/18/2025 3:40 PM EDT Personalized Preventative Plan for Kenn Arshad - 04/18/2025 Medicare offers a range of preventative health benefits. Some of the tests and screenings are paid in full while others may be subject to a deductible, co- insurance, and / or copay. Some of these benefits include a comprehensive review of your medical history including lifestyle, illnesses that mayrun in your family, and various assessments and screenings as appropriate. After reviewing your medical record and screening and assessments performed today, your provider may have ordered immunizations, labs, imaging, and / or referrals for you. A list of these orders (if applicable) as well as your Preventative Care list are included within your After Visit Summary for your review. Other Preventative Recommendations: A preventive eye exam by an document imaging specialist is recommended every 1-2 years to screen for glaucoma, cataracts, macular degeneration, and other eye disorders. A preventive dental visit is recommended every 6 months. Try to get at least 150 minutes of exercise per week or 10,000 steps per day on a pedometer. You need 1200-1500mg of calcium and 8950-8286 international units of vitamin D per day. It is possible to meet your calcium requirement with diet alone, but a vitamin D supplement is usually necessary to meet this goal. When exposed to the sun, use a sunscreen that protects against both UVA and UVB radiation with an SPF of 30 or greater. Reapply every 2-3 hours or after sweating, drying off with a towel, or swimming. Always wear a seat belt when traveling in a car. Always wear a helmet when riding a bicycle or a motorcycle documented in this [facility]06-04-2025 Evaluation note* Diagnosis Onset Date Resolution Status Admit Date Brain metastasis chronic April 12:29pm 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 chronic April 12, 2025 12:29pm Cancer of right kidney chronic 2024 12:29pm History of primary malignant neoplasm of left kidney chronic April 12, 2025 12:29pm Iron deficiency anemia due to chronic blood loss chronic April 122024 12:29pm 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 April 122024 12:29pm 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 April 12, 2025 12:29pm Regional lymph node metastasis present chronic April 12 12:29pm Brain metastasis chronic April 9:32am 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 chronic May 02, 2025 9:32am Cancer of right kidney chronic 2024 9:32am History of primary malignant neoplasm of left kidney chronic May 02, 2025 9:32am Iron deficiency anemia due to chronic blood loss April 102024 9:32am 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 April 102024 9:32am 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 May 02, 2025 9:32am Regional lymph node metastasis present chronic May 02 9:32am Brain metastasis chronic May 9:38am 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 chronic May 24, 2025 9:38am Cancer of right kidney chronic 2024 9:38am History of primary malignant neoplasm of left kidney chronic May 24, 2025 9:38am Iron deficiency anemia due to chronic blood loss May 092024 9:38am 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 May 092024 9:38am 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 May 24, 2025 9:38am Regional lymph node metastasis present chronic May 24 9:38am COPD (chronic obstructive pulmonary disease) chronic June 09 10:30am 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 June 09, 2025 10:30am Encounter for immunotherapy acute June 15, 2025 10:28am Brain metastasis chronic June 152024 10:28am 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 chronic June 15, 2025 10:28am Cancer of right kidney chronic 2024 10:28am History of primary malignant neoplasm of left kidney chronic June 15, 2025 10:28am Iron deficiency anemia due to chronic blood loss June 15, 2025 10:28am 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 June 15, 2025 10:28am 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 June 15, 2025 10:28am Regional lymph node metastasis present chronic June 15 10:28am Anemia acute July 04 10:20am Brain metastasis chronic June 102024 12:29pm 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 chronic July 05 12:29pm Cancer of right kidney chronic Au harshal 2024 12:29pm History of primary malignant neoplasm of left kidney chronic July 05 12:29pm Iron deficiency anemia due to chronic blood loss chronic July 05, 2025 12:29pm 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 July 05, 2025 12:29pm 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 July 05 12:29pm Regional lymph node metastasis present chronic July 05, 2025 12:29pm Brain metastasis chronic Septembe r 2024 9:41am 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 chronic July 26, 2025 9:41am Cancer of right kidney chronic Se ptember 2024 9:41am History of primary malignant neoplasm of left kidney chronic July 26, 2025 9:41am Iron deficiency anemia due to chronic blood loss chronic Septem chema 2024 9:41am 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 Septem 2024 9:41am 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 July 26, 2025 9:41am Regional lymph node metastasis present chronic July 9:41am Carotid bruit acute July 112024 11:13am Essential (primary) hypertension chronic August 04, 2025 11:13am Hyperlipidemia chronic August 04, 2025 11:13am 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 July 11:13am Nonrheumatic aortic (valve) stenosis with insufficiency chronic August 04, 2025 11:13am History of coronary artery stent placement July 17, 2003 resolved Septe mber 2024 11:13am [facility] Work Phone: 1(767) 332-360105-21-2025 Evaluation note* Diagnosis Onset Date Resolution Status Admit Date Brain metastasis chronic March 10:30am Cancer of lower lobe of righ t lung chronic March 29, 2025 1 0:30am Cancer of right kidney chronic Ma 2024 10:30am History of primary malignant neoplasm of left kidney chronic March 10:30am Iron deficiency anemia due t o chronic blood loss chronic March 29 10:30am 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 March 29 10:30am 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 March 29, 2025 10:30am 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 March 29, 2025 1 0:30am Anemia acute March 30, 2025 10:02am Brain metastasis chronic April 12:29pm Cancer of lower lobe of righ t lung chronic April 12, 2025 1 2:29pm Cancer of right kidney chronic 2024 12:29pm History of primary malignant neoplasm of left kidney chronic April 12:29pm Iron deficiency anemia due t o chronic blood loss chronic April 12 12:29pm 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 April 12 12:29pm 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 April 12, 2025 12:29pm 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 April 12, 2025 1 2:29pm Brain metastasis chronic April 9:32am Cancer of lower lobe of righ t lung chronic May 02, 2025 9:32am Cancer of right kidney chronic 2024 9:32am History of primary malignant neoplasm of left kidney chronic April 9:32am Iron deficiency anemia due t o chronic blood loss chronic May 02 9:32am 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 May 02 9:32am 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 May 02, 2025 9:32am 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 May 02, 2025 9:32am Brain metastasis chronic May 9:38am Cancer of lower lobe of righ t lung chronic May 24, 2025 9:38am Cancer of right kidney chronic Ju ly 2024 9:38am History of primary malignant neoplasm of left kidney chronic May 9:38am Iron deficiency anemia due t o chronic blood loss chronic May 24 9:38am 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 May 24 9:38am 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 May 24, 2025 9:38am 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 May 24, 2025 9:38am COPD (chronic obstructive pulmonary disease) chronic June 09 10:30am 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 June 09 10:30am Encounter for immunotherapy acute June 15, 2025 10:28am Brain metastasis chronic June 152024 10:28am Cancer of lower lobe of righ t lung chronic June 15, 2025 10:28am Cancer of right kidney chronic Au harshal 2024 10:28am History of primary malignant neoplasm of left kidney chronic June 152024 10:28am Iron deficiency anemia due t o chronic blood loss chronic June 15 10:28am 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 June 15 10:28am 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 June 15, 2025 10:28am 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 June 15, 2025 10:28am Anemia acute July 04 10:20am Brain metastasis chronic June 102024 12:29pm Cancer of lower lobe of righ t lung chronic July 05 12:29pm Cancer of right kidney chronic Au harshal 2024 12:29pm History of primary malignant neoplasm of left kidney chronic June 102024 12:29pm Iron deficiency anemia due t o chronic blood loss chronic July 05, 2025 12:29pm 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 July 05, 2025 12:29pm 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 July 05, 2025 12:29pm 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 July 05 12:29pm Brain metastasis chronic Septembe r 2024 9:41am Cancer of lower lobe of righ t lung chronic July 26, 2025 9:41am Cancer of right kidney chronic Se ptember 2024 9:41am History of primary malignant neoplasm of left kidney chronic Septembe r 2024 9:41am Iron deficiency anemia due t o chronic blood loss chronic July 9:41am 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 July 9:41am 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 July 26, 2025 9:41am 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 July 26, 2025 9:41am [facility] Work Phone: 1(207) 856-455505-19-2025 Telephone encounter Note* Telephone Encounter - Brandie Luz MA - 03/27/2025 5:09 PM EDT Recent Visits Date Type Provider Dept 02/21/25 Office Visit Jacob Jennings DO [facility] 12/30/24 Office Visit Jacob Jennings, DO [facility] 12/06/24 Office Visit Jacob Jennings, DO [facility] 10/20/24 Office Visit Jacob Jennings, DO [facility] 09/19/24 Office Visit Jacob Jennings, DO [facility] 04/19/24 Office Visit Jacob Jennings, DO [facility] Showing recent visits within past 365 days and meeting all other requirements Future Appointments Date Type Provider Dept 04/18/25 Appointment Jacob Jennings, DO [facility] Showing future appointments within next 90 days and meeting all other requirements Requested Prescriptions Pending Prescriptions Disp Refills amLODIPine (Norvasc) 10 MG tablet [Pharmacy Med Name: AMLODIPINE BESYLATE 10 MG TAB] 90 tablet 1 Sig: TAKE 1 TABLET (10 MG) BY MOUTH DAILY Provider: Jacob Jennings DO Verified pharmacy: yes Verified day(s) supplied: yes Verified refill(s) needed (previous prescription showing no refills in chart): Yes Have you received any controlled medications from any other provider? N/A Overdue for visit: No If yes - patient scheduled? Yes Most recent labs completed in chart? Yes Hypertension: Lab Results Component Value Date NA 134 (L) 12/30/2024 K 4.1 12/30/2024 EGFR 71.0 12/30/2024 BUN 7 (L) 12/30/2024 CREATININE 1.11 12/30/2024 [id number] Miscellaneous Notes* Telephone Encounter - Brandie Luz MA - 03/27/2025 5:09 PM EDT Recent Visits Date Type Provider Dept 02/21/25 Office Visit Jacob Robin Anamikawhitney, DO [facility] 12/30/24 Office Visit Jacob Robin Piperpiper, DO [facility] 12/06/24 Office Visit Jacob Jennings, DO [facility] 10/20/24 Office Visit Jacob Jennings, DO [facility] 09/19/24 Office Visit Jacob Jennings, DO [facility] 04/19/24 Office Visit Jacob Jennings DO [facility] Showing recent visits within past 365 days and meeting all other requirements Future Appointments Date Type Provider Dept 04/18/25 Appointment Jacob Sharda DO Dick [facility] Showing future appointments within next 90 days and meeting all other requirements Requested Prescriptions Pending Prescriptions Disp Refills amLODIPine (Norvasc) 10 MG tablet [Pharmacy Med Name: AMLODIPINE BESYLATE 10 MG TAB] 90 tablet 1 Sig: TAKE 1 TABLET (10 MG) BY MOUTH DAILY Provider: Jacob Jennings DO Verified pharmacy: yes Verified day(s) supplied: yes Verified refill(s) needed (previous prescription showing no refills in chart): Yes Have you received any controlled medications from any other provider? N/A Overdue for visit: No If yes - patient scheduled? Yes Most recent labs completed in chart? Yes Hypertension: Lab Results Component Value Date NA 134 (L) 12/30/2024 K 4.1 12/30/2024 EGFR 71.0 12/30/2024 BUN 7 (L) 12/30/2024 CREATININE 1.11 12/30/2024 [id number] Telephone encounter Note* Telephone Encounter - Katie Peck MA - 03/27/2025 2:14 PM EDT Spoke with Katharina and she voiced understanding. [id number] Miscellaneous Notes* Telephone Encounter - Katie Peck MA - 03/27/2025 2:14 PM EDT Spoke with Katharina and she voiced understanding. * Telephone Encounter - Yahaira Diaz - 03/27/2025 11:24 AM EDT Name of caller: Katharina Contact phone number: [phone] Relationship to Patient: [facility] Provider: Dr Jennings Practice: [facility] Chief Complaint/Reason for Call: Caller is requesting plan of care for the patient, nursing twice aweek for 1 week then once a week for 3 weeks. Caller also wanted to report some discrepancies in the patient medications: Coreg and albuterol has diminishing reasons and the Coreg and apixaban has diminishing reasons. Please advise. Thank you. Best time of day caller can be reached: any Patient advised that office/PCP has 24-48 business hours to return their call: No documented in this [facility]05-19-2025 Telephone encounter Note* Telephone Encounter - Yahaira Diaz - 03/27/2025 11:24 AM EDT Name of caller: Katharina Contact phone number: [phone] Relationship to Patient: [facility] Provider: Dr Jennings Practice: [facility] Chief Complaint/Reason for Call: Caller is requesting plan of care for the patient, nursing twice aweek for 1 week then once a week for 3 weeks. Caller also wanted to report some discrepancies in the patient medications: Coreg and albuterol has diminishing reasons and the Coreg and apixaban has diminishing reasons. Please advise. Thank you. Best time of day caller can be reached: any Patient advised that office/PCP has 24-48 business hours to return their call: No [id number] [facility]05-15-2025 Progress note Author Michael Friend [facility] Note Date/Time March 23, 2025 6:42p m [facility] Medical Records Department [address] [place] [address] Progress Note 03/23/257 MR#: [id number] Acct: [id number] Name: KENN ARSHAD Rep #:[id number] : 1955 69 From: Michael Friend PCP: Dr. Jacob Jennings, DO Status:AD M IN Location: MS3 SA605-4 Progress Note Patient is eating a little bit better today. He denies any abdominal pain or cramping at this time. His nausea is a lot better, but he is still vomiting postprandially. Physical Exam Narrative No abdominal pain Physical exam General: Alert, Oriented x3, Cooperative HEENT: Atraumatic, PERRLA, EOMI, Normocephalic. Oral: No Gingival or Mucosal Lesions/ Ulcerations Neck: Supple, No JVD, Negative Carotid Bruits Chest wall/Lungs: Mediport on the right chest wall. Air entry diminished in bilateral lung bases, Right more than left. No crepitation. Cardiovascular: Regular rate and rhythm, Normal S1,S2, No M/G/R Abdomen: Bowel Sounds Present, Soft, Non Tender, Non-Distended : No dysuria. No renal angle tenderness. No suprapubic tenderness. Extremities: No edema, Capillary Refill Less than 3 Seconds Skin: No rashes, No breakdown Musculoskeletal: No Tenderness to Palpation of Joints or Extremities Neurological: Cranial nerves II-XII grossly intact, DTR 2+/4. No acute focal neurological deficit. Psych/Mental Status: Normal Affect, Appropriate. Assessment & Plan Assessment/Plan (1) Pneumonia: (2) Hypoxia: (3) Dysphagia: PLAN: Plan The patient is a 69 y/o M admitted with nausea & vomiting for 3 whenever he tries to eat it comes back right away. He is also having esophageal dysphagia. He underwent an upper endoscopy yesterday. He did not have any narrowing or any problems in his esophagus. He did have poor motility in his esophagus. His stomach did not have any gross abnormalities. He did have significant inflammation from his duodenal bulb all way through to the 3rd and 4th portion of the duodenum. 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 He is on IV Solu-Medrol. Herates his nausea at a 2 out of 10 to 3 out of 10 when he does not eat but it cango up to a 10 out of 10 when he eats. Recommendation: - Continue steroids at current dosing - Start metoclopramide 10 mg IV every 8 hours - Azithromycin 500 mg IV daily - Less narcotics as possible Visit Charges Inpatient E&M: [address] [place] [address] 03/23/25 4747 <Electronically signed by Michael Friend DO> Michael Friend DO Cosigner Signature (if applicable): CC: ~ Signed [facility] Work Phone: 1(273) 424-550005-15-2025 Consult note Author David Rm [facility] Note Date/Time March 23, 2025 4:16p m [facility] Medical Records Department [address] [place] [address] Pharmacokinetic/Renal -Consult 03/23/25 1448 MR#: [id number] Acct: [id number] Name: KENN ARSHAD Rep #:[id number] : 1955 69 From: David Rm PCP: Dr. Jacob Jennings DO Status:AD M IN Y Location: [place] [id number] Consult Antibiotic Management Pharmacy has been consulted to manage selected antibiotic: Vancomycin Type of Intervention Type of Consult: New start Suspected Infection Suspected Infection: Pneumonia Prior Doses of Antibiotics Prior Doses of Antibiotics Received/Current Regimen: Vancomycin 1250 mg IV x 1 given 03/23/25@ 0200 Labs Labs: Sodium 139 mmol/L (133-145) 03/23/25 04:30 Potassium 4.0 mmol/L (3.3-5.1) 03/23/25 04:30 Chloride 110 mmol/L (98-108) H 03/23/25 04:30 Carbon Dioxide 16.4 mmol/L (21.0-32.0) L 03/23/25 04:30 Anion Gap 13 (5-15) 03/23/25 04:30 BUN 16 mg/dL (4-19) 03/23/25 04:30 Creatinine 0.87 mg/dL (0.70-1.20) 03/23/25 04:30 Est GFR (MDRD) Non-Af 92 (>60) 03/23/25 04:30 BUN/Creatinine Ratio 18.4 RATIO (10-20) 03/23/25 04:30 Glucose 163 mg/dL (70-99) H 03/23/25 04:30 Microbiology Microbiology: Microbiology 03/21/25 18:31 Sputum, Expectorated/Coughed Gram Stain - Final 03/21/25 18:31 Sputum, Expectorated/Coughed Respiratory Culture - Preliminary Staphylococcus aureus GNR lactose shaker washer 03/21/25 20:45 Mucosa - Nasopharyngeal Respiratory Panel (PCR) - Final 03/21/25 19:40 Nasal Secretion MRSA (PCR) - Final 03/21/25 19:46 Urine, Clean Catch Legionella Antigen - Final 03/21/25 19:46 Urine, Clean Catch Streptococcus pneumoniae Antigen (M - Final Dosing Weight Weight used for dosin kg Estimated Creatinine Clearance Estimated Creatinine Clearance: ~ 75 Goal Trough Goal Trough: 15-20 mcg/mL Pharmacy Plan for Drug Dosing Pharmacy Plan for Drug Dosing: Vancomycin 1250 mg IV x 1 followed by 1000 mg IV Q12H Pharmacy Service will continue to monitor and adjust dosing as required. Follow-Up Labs Follow-Up Labs: Trough: Vancomycin Date/Time Labs Ordered Labs to be done on [date and time ordered]: 03/25/25 @ 0200 03/23/25 1449 <Electronically signed by David rey> Date _ David Rm 03/23/25 1616 <Electronically signed by Emmanuel Kaiser MD> Cosigner Signature (if applicable): Date Emmanuel Kaiser MD CC: ~ Signed [facility] Work Phone: [phone]) 549-946505-15-2025 Progress note Author Emmanuel Kaiser [facility] Note Date/Time March 23, 2025 2:01p m [facility] Medical Records Department [address] [facility] [place] [address] Progress Note - Hospitalist 03/23/25 1340 MR#: [id number] Acct: [id number] Name: KENN ARSHAD Rep #:[id number] : 1955 69 From: Emmanuel Nava PCP: Dr. Jacob Jennings, DO Status:AD M IN [facility] Reason for Visit Reason for Visit: Diagnoses Pneumonia, unspecified organism (03/21/25) Hypoxemia (03/21/25) Nausea with vomiting, unspecified (03/21/25) Dysphagia, unspecified (03/21/25) Objective Data Objective Data Vital Signs: Vital Signs Temp Pulse Resp BP Pulse Ox O2 Del Method O2 Flow Rate 97.5 F L 83 18 120/54 L 94 Nasal Cannula 3 03/23/25 07:40 03/23/25 13:16 03/23/25 13:16 03/23/25 07:40 03/23/25 07:50 03/23/25 09:50 03/23/25 09:50 Oxygen Flow Rate (L/min) 3 Oxygen Delivery Method Nasal Cannula Weight: 174 lb 9.698 oz Body Mass Index (BMI) 29.0 Intake & Output: Intake and Output for Last 24 Hours 03/21/25 03/22/25 03/23/25 23:59 23:59 23:59 Intake Total 2372.17 / 2372.17 2232.08 / 2232.08 474 / 474 Balance 2372.17 / 2372.17 2232.08 / 2232.08 474 / 474 Medical Nutrition Assessment Dietitian: Malnutrition Criteria Met Start: 03/22/25 10:48 Freq: Status: Active Protocol: Document 03/22/25 15:22 SB (Rec: 03/22/25 15:23 SB [id number]) Nutrition Malnutrition Evidence of Yes Malnutrition Exists Malnutrition (severe Chronic ): Evidenced By Suboptimal Energy Intake (Severe),Weight Loss (Severe) Clinical Problem Chronic Disease or Condition Related Malnutrition Etiology severe related to altered GI function and metastatic cancer Signs/Symptoms as evidenced by 18% unintentional weight loss x 3 months and PO intake <75% of estimated nutrition needs x 3 weeks Status Active Problem Recommendation Dietitian Recommend advanced diet as tolerated to liberal regular Recommendations/ diet due to malnutrition. Changes Will order 120ml EPHP 4x daily with medpass, as diet is advanced. Additional ONS as diet advanced to solid foods. Lab / Micro Data 03/23/25 04:30 03/23/25 04:30 Labs: Laboratory Results - last 24 hr 03/23/25 04:30: WBC 3.0 L, RBC 3.55 L, Hgb 8.3 L, Hct 26.1 L, MCV 73.5 L, MCH 23.4 L, MCHC 31.8 L, RDW Std Deviation 46.8 H, RDW Coeff of Kailey 17.4 H, Plt Count 187, MPV 9.1, Immature Gran % (Auto) 2.700 H, Neut % (Auto) 80.4 H, Lymph % (Auto) 9.5 L, [place] % (Auto) 6.4, Eos % (Auto) 0.3, Baso % (Auto) 0.7, AbsoluteNeuts (auto) 2.4, Absolute Lymphs (auto) 0.28 L, Nucleated RBC % 0, Sodium 139, Potassium 4.0, Chloride 110 H, Carbon Dioxide 16.4 L, Anion Gap 13, BUN 16, Creatinine 0.87, Estim Creat Clear Calc 75.10, Est GFR (MDRD) Non-Af 92, BUN/Creatinine Ratio 18.4, Glucose 163 H, Calcium 8.3 Micro: Microbiology 03/21/25 18:31 Sputum, Expectorated/Coughed Gram Stain - Final 03/21/25 18:31 Sputum, Expectorated/Coughed Respiratory Culture - Preliminary Staphylococcus aureus GNR lactose shaker washer 03/21/25 20:45 Mucosa - Nasopharyngeal Respiratory Panel (PCR) - Final 03/21/25 19:40 Nasal Secretion MRSA (PCR) - Final 03/21/25 19:46 Urine, Clean Catch Legionella Antigen - Final 03/21/25 19:46 Urine, Clean Catch Streptococcus pneumoniae Antigen (M - Final Physical Exam Narrative Seen and examined Personal history of metastatic renal cell carcinoma. Admitted with nausea vomiting not able to keep food in the stomach. He states he vomits right away within 10 to 15 minutes after eating. No abdominal pain Physical exam General: Alert, Oriented x3, Cooperative HEENT: Atraumatic, PERRLA, EOMI, Normocephalic. Oral: No Gingival or Mucosal Lesions/ Ulcerations Neck: Supple, No JVD, Negative Carotid Bruits Chest wall/Lungs: Mediport on the right chest wall. Air entry diminished in bilateral lung bases, Right more than left. No crepitation. Cardiovascular: Regular rate and rhythm, Normal S1,S2, No M/G/R Abdomen: Bowel Sounds Present, Soft, Non Tender, Non-Distended : No dysuria. No renal angle tenderness. No suprapubic tenderness. Extremities: No edema, Capillary Refill Less than 3 Seconds Skin: No rashes, No breakdown Musculoskeletal: No Tenderness to Palpation of Joints or Extremities Neurological: Cranial nerves II-XII grossly intact, DTR 2+/4. No acute focal neurological deficit. Psych/Mental Status: Normal Affect, Appropriate. Assessment & Plan Assessment/Plan (1) Pneumonia: (2) Hypoxia: (3) Dysphagia: PLAN: Plan The patient is a 69 y/o M admitted with nausea vomiting for 3 whenever she triesto eat it comes back right away. Does not feel weeks unable to keep things down. She does not feel that it gets into the stomach. Denies abdominal pain, chest pain shortness of breath, diarrhea melena or hematochezia. Denies dysuria #1. Possible left lower lobe pneumonia with new right pleural effusion worse onthe right side with mild COPD exacerbation: Patient is being admitted on Med[facility]urg[facility]. Chest abdomen pelvis CT was done which shows new right pleural effusion with infiltration in both lungs. Respiratory panel, MRSA nasal screen and urinary antigens are negative. Mild leukopenia. Patient is being managed on scheduled bronchodilator, IV Solu-Medrol, Mucinex, incentive spirometry and Pep. 03/23: Preliminary sputum culture Gram stain shows Staph aureus and GNR lactose shaker washer. Vancomycin started back. MRSA nasal screen negative but will continue vancomycin until MRSA is ruled out on the sputum culture and sensitivity. #2. Intractable N/V, unclear etiology with associated worsening severe protein calorie malnutrition: GI is consulted. Symptomatic management. IV fluid oral intake, clear liquid diet. No acute findings reported in CT chest/abdomen/pelvis status post left nephrectomy. Persistent masses in the right kidney. 03/23: Symptoms have subsided. #3. Acute on chronic hyponatremia, suspected component hypovolemia poor oral intake ability: Admission sodium 132, chloride 101,, repeat sodium is same. 132. IV fluid did not make the difference. Continue IV fluid. Suspicion of possible SIADH with history of cancer COPD. 03/23: Serum sodium 139, potassium 140. Anion gap 13. BUN/creatinine normal. #4. Chronic Kidney Disease Stage II : Admission BUN/Cr 14/0.89, GFR 91, patientbaseline kidney function #5. Chronic microcytic anemia: Admission hemoglobin 9.5, MCV 73.2, baseline hemoglobin primarily 10-11 although most recently 03/15/2025 hemoglobin 10, continue to trend and if any concerns arise about further decreasing levels may need to hold NOAC and obtain guaiac. 03/22: Hemoglobin 9.9. 03/23: Hemoglobin 8.3/26.8%. Platelet count 187 K. Monitor H&H at night. #6. Hypertension: Continue home regimen including Coreg, hydralazine, amlodipine with hold parameters as needed, PRN hydralazine. #7. Hyperlipidemia: We will continue patient on statin therapy. #8. CAD: Status post previous PCI,: Continue patient apixaban cautiously, statin, Coreg, not on XIN inhibitor/ARB. #9. History of VTE: Patient with history of previous DVT, PE, continue patient chronic Eliquis regimen cautiously. #10. History of metastatic renal cell carcinoma, history of brain tumor unclearif this was metastatic or not with associated previous seizure history: Patient with history of metastatic renal cell carcinoma status post left nephrectomy with metastatic disease to the lung status post also lobectomy, chart history ofquestionable some type of brain tumor but uncertain if this was metastatic and unclear previous interventions, currently per record maintained outpatient on Keytruda, encourage continued outpatient follow-up with oncology as previously arranged. Mag and Phos requested. #11. GERD with history of duodenal ulcer disease status post previous GI bleed:We will continue patient on PPI, currently placed on IV version until oral intake improved especially given intractable nausea and emesis #12. Former tobacco use: Encourage continued tobacco cessation. #13. DVT prophylaxis: Continue patient on apixaban regimen. #14. CODE status: Patient does not have healthcare power of prosecuting attorney or living will in place but he notes his who is present would be his medical decision- maker if necessary. Discussed CODE status at length including difference between FULL code, DNR-CCA and DNR-CC status. Following discussions about the differences in these status, requested DNR-CCA, no intubation. Microbiology Past 72 Hours 03/21/25 18:31 Sputum, Expectorated/Coughed Gram Stain - Final 03/21/25 18:31 Sputum, Expectorated/Coughed Respiratory Culture - Preliminary Staphylococcus aureus GNR lactose shaker washer 03/21/25 20:45 Mucosa - Nasopharyngeal Respiratory Panel (PCR) - Final 03/21/25 19:40 Nasal Secretion MRSA (PCR) - Final 03/21/25 19:46 Urine, Clean Catch Legionella Antigen - Final 03/21/25 19:46 Urine, Clean Catch Streptococcus pneumoniae Antigen (M - Final Laboratory Results 03/23/25 04:30: WBC 3.0 L, RBC 3.55 L, Hgb 8.3 L, Hct 26.1 L, MCV 73.5 L, MCH 23.4 L, MCHC 31.8 L, RDW Std Deviation 46.8 H, RDW Coeff of Kailey 17.4 H, Plt Count 187, MPV 9.1, Immature Gran % (Auto) 2.700 H, Neut % (Auto) 80.4 H, Lymph % (Auto) 9.5 L, [place] % (Auto) 6.4, Eos % (Auto) 0.3, Baso % (Auto) 0.7, AbsoluteNeuts (auto) 2.4, Absolute Lymphs (auto) 0.28 L, Nucleated RBC % 0, Sodium 139, Potassium 4.0, Chloride 110 H, Carbon Dioxide 16.4 L, Anion Gap 13, BUN 16, Creatinine 0.87, Estim Creat Clear Calc 75.10, Est GFR (MDRD) Non-Af 92, BUN/Creatinine Ratio 18.4, Glucose 163 H, Calcium 8.3 Clinical Impression(s) from Imaging Studies Chest/Abdomen/Pelvis CT 03/21/25 10:03 IMPRESSION: New right pleural effusion with infiltration in both lungs worse on the right side as described. Status post left nephrectomy. Persistent masses in the right kidney. Charges/Coding Visit Charges Inpatient E&M: 15739 Subs Hosp L2 03/23/25 1348 <Electronically signed by Emmanuel Kaiser MD> Cosigner Signature (if applicable): CC: ~ Signed ADDENDUM by Dr. Emmanuel Kaiser MD on 03/23/25 at 1350 Addendum Continue IV Zosyn till today and then changed to IV ceftriaxone tomorrow a.m. to narrow down the antibiotic as prelim sputum culture growing GNR lactose shaker washer. 03/23/25 1350<Electronically signed by Emmanuel Kaiser MD> Cosigner Signature (if applicable): cc: ~* Signed ADDENDUM by Dr. Emmaneul Kaiser MD on 03/23/25 at 1401 Addendum Correction: Patient initially had nausea vomiting with complaint of vomiting 10 to 15 minutes after eating. Therefore chance of possible aspiration although speech therapist did not find more concerning and recommended regular texture food with thin liquid. Therefore continue IV vancomycin and Zosyn. EGD on 03/22/2025 shows Impression: - Non-severe reflux esophagitis with no bleeding. - Erythematous mucosa in the gastric body. - Duodenal mucosal changes seen, diagnostic of celiac disease. Biopsied. Recommendation: - [facility]. Dietitian consult for gluten-free diet and start Ensure clear - Continue present medications. Biopsy pending but EGD findings were suggestive of celiac disease therefore patient on celiac diet 03/23/25 1401<Electronically signed by Emmanuel Kaiser MD> Cosigner Signature (if applicable): cc: ~* Signed [facility] Work Phone: 1(366) 118-195605-14-2025 Consult note Author El Acosta [facility] Note Date/Time March 22, 2025 7:52p m [facility] Medical Records Department [address] [place] [address] Anesthesia Postop Eval II 03/22/251951 MR#: [id number] Acct: [id number] Name: KENN ARSHAD Rep #:[id number] : 1955 69 From: El Acosta MD PCP: Dr. Jacob Jennings, DO Status:AD M IN Y Race: C Location: [address] Anesthesia Postop Eval I Sum Postop Eval Completion status Anesthesia document: Postop Eval 1 completed: Yes Anesthesia Postop Eval I Summary Anesthesia Postop Eval I Summary: Anesthesia Postop Eval I: Assessment Summary Airway patent Yes 03/22/25 18:32 Spontaneous unlabored Yes 03/22/25 18:32 respirations Mental status Awake,Calm 03/22/25 18:32 nausea No 03/22/25 18:32 Vomiting No 03/22/25 18:32 Anesthesia Postop Eval I: Fluid Summary Crystalloid volume administer 300 03/22/25 18:32 (ml) Colloids volume administered ( ml) Blood Product volume administered (ml) Total IV fluid infused 300 03/22/25 18:32 Anesthesia Postop Eval I: Summary Notes Anesthesia Complication No 03/22/25 18:32 Anesthesia Complication Comment: Post-operative progress note Anesthesia: Postop Eval II Evaluation Mental status: Awake and Calm Pain Level: 0 nausea: No Vomiting: No Complications Anesthesia Complication: No 03/22/251951 <Electronically signed by El lovett MD> Date _ El Acosta MD Cosigner Signature: Date CC: ~ Signed [facility] Work Phone: [phone]) 836-960505-14-2025 Progress note Author Michael Chambers [facility] Note Date/Time March 22, 2025 6:41p m [facility] Medical Records Department [address] [place] [address] Progress Note 03/22/25 1837 MR#: [id number] Acct: [id number] Name: KENN ARSHAD Rep #:[id number] : 1955 69 From: Michael Chambers DO PCP: Dr. Jacob Jennings, Status:AD M IN Location: [place] [address] Progress Note Mr. Arshad has Pembrolizumab, an immune checkpoint inhibitor, has been associated with celiac disease in some patients.? 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 He is on methylprednisolone 40 mg IV every 8 hours. Hopefully will be able to transitionhim to oral prednisone while he is on Ensure clear and maintaining a gluten-freediet. Nutrition consult was ordered. Physical Exam Const alert, oriented x3, no apparent distress and healthy appearing General Appearance: cooperative GI normal to inspection, nondistended, normoactive bowel sounds, soft to palpation,non-tender and non-distended Percussion: normal to percussion Rectal Exam: deferred Assessment & Plan Assessment/Plan (1) Nausea & vomitin03/22/251840 <Electronically signed by Michael Chambers DO> Michael Chambers DO Cosigner Signature (if applicable): CC: ~ Signed ADDENDUM by Michael Chambers DO on 03/22/25 at 1841 Visit Charges Inpatient E&M: 89269 Subs Hosp L3 03/22/251840 <Electronically signed by Michael nava DO> Date _ Michael Chambers DO Cosignazam Signature (if applicable): Date cc: ~* Signed [facility] Work Phone: 1([phone] 532-466505-14-[address] [facility] Note Date/Time March 22, 2025 6:32p m [facility] Medical Records Department [address] [place] [address] Anesthesia Postop Eval I 03/22/251827 MR#: [id number] Acct: [id number] Name: KENN ARSHAD Rep #:[id number] : 1955 69 From: El Acosta MD PCP: Dr. Jacob Jennings, Status:AD M IN Y Race: C Location: [facility] [id number] -[id number] Anesthesia: Postop Eval I Current Vital Signs Temperature: 98 F Pulse Rate: 84 Blood Pressure: 87/47 Respiratory Rate: 20 Pulse Ox: 96 Oxygen Delivery Method: Nasal Cannula Assessment Airway patent: Yes Spontaneous unlabored respirations: Yes Mental status: Awake and Calm nausea: No Vomiting: No Anesthesia Complication: No Fluid Hydration Crystalloid volume administer (ml): 300 Total IV fluid infused: 300 Progress Note Anesthesia document: Postop Eval 1 completed: Yes 03/22/251831 <Electronically signed by El lovett MD> Date _ El Bolanos Signature: Date CC: ~ Signed [facility] Work Phone: [phone]) [phone] Progress note Author Michael Friend [facility] Note Date/Time March 22, 2025 5:40p m [facility] Medical Records Department [address] [place] [address] Progress Note 03/22/25 1738 MR#: [id number] Acct: [id number] Name: KENN ARSHAD Rep #:[id number] : 1955 69 From: Michael Chambers DO PCP: Dr. Jacob Jennings, DO Status:AD M IN Location: [facility] [id number] Progress Note Patient has been n.p.o. waiting for an upper endoscopy. He did have 1 episode of nausea vomiting today. He still has a persistent cough. Physical Exam Const alert, oriented x3, no apparent distress and healthy appearing General Appearance: cooperative GI normal to inspection, nondistended, normoactive bowel sounds, soft to palpation,non-tender and non-distended Percussion: normal to percussion Rectal Exam: deferred Assessment & Plan Assessment/Plan (1) Pneumonia: (2) Hypoxia: (3) Dysphagia: PLAN: Plan The patient is a 69 y/o M admitted with nausea vomiting for 3 whenever she triesto eat it comes back right away. Does not feel weeks unable to keep things down. He is also having esophageal dysphagia. Differential diagnosis does include erosive esophagitis, Patito esophagitis, esophageal ring, esophageal stricture secondary to nausea vomiting and chemotherapy. He will undergo an upper endoscopy. He was explained alternatives, risk and benefits include normal study bleeding, infection, sepsis, perforation, need for more charge and . He will have an ASA of 3. Visit Charges Inpatient E&M: 29427 [facility] Hosp 03/22/25 1740 <Electronically signed by Michael Chambers DO> Michael Chambers DO Cosigner Signature (if applicable): CC: ~ Signed [facility] Work Phone: 1(194) [phone] Consult note Author Michael Chambers [facility] Note Date/Time March 22, 2025 5:39p m [facility] Medical Records Department [address] [place] [address] Consultation - GI 03/21/252107 MR#: [id number] Acct: [id number] Name: KENN ARSHAD Rep #:[id number] : 1955 69 From: Michael Chambers DO PCP: Dr. Jacob Jennings DO Status:AD M IN Location: [facility] [id number] ADDENDUM by Michael Chambers DO on 03/22/25 at 1738 Visit Charges Inpatient E&M: 36327 Init Hosp L3 Assessment & Plan (1) Dysphagia: (2) Hypoxia: (3) Nausea & vomiting: PLAN: Plan 68-year-old gentleman with past medical history of metastatic cancer presents with nausea vomiting. He has a history of duodenal ulcers. He also has a recent history of immunotherapy induced colitis. He is not able to keep anything down at this time. He developed a left lower lobe pneumonia from nausea vomiting. Recommend upper endoscopy to evaluate upper GI tract. He was explained alternatives, risk and benefits including worsening bleeding, infection, sepsis, perforation, need for surgery . He will have an ASA of 3. 03/22/251737<Electronically signed by Michael Chambers DO> Cosigner Signature (if applicable): cc: Dr. Jacob Jennings, ~* Signed HPI Consult Data Date of Consult: 03/21/25 HPI Narrative Reason for Consultation: Intractable nausea and vomiting HPI Narrative: KENN ARSHAD, is a 69 M who presented to the ED with nausea and vomiting that has been constant for the past 3 weeks. He states that anytime he tries to eat anything he throws it back up. Patient states he does not feel like he gets anything into his stomach. Patient states he starts to vomit whenever he tries to swallow. Patient denies any hematemesis or coffee-ground emesis. Patient states it is worse whenever he tries to eat. Patient states nothing seems to help with it. I got to know him back in 2022 for nausea, vomiting and hematemesis. He underwent an EGD: EGD 05.04.23 Z-line irregular, 38 cm from the incisors. Medium-sized hiatal hernia. Congestive gastropathy. Enlarged gastric folds. Blood in the second portion of the duodenum. Multiple non-obstructing oozing duodenal ulcers with adherent clot. There is no evidence of perforation. Biopsied. Multiple oozing duodenal ulcers with a visible vessel. Injected. One non-bleeding duodenal ulcerwith pigmented material. Treated with a heater probe. I saw him back in the office for iron deficiency anemia and need for multiple blood transfusions. He underwent a capsule endoscopy: Pill Cam 11.29.24 two angiodysplatic lesions in the small bowel with bleedingstigmata. Recommends deep enteroscopy pt referred for deep enteroscopy, pt refused. I saw him back in the hospital in January of this year for immunotherapy induced colitis. He underwent a sigmoidoscopy. Sigmoidoscopy 01.17.25 revealed immunotherapy induced colitis confirmed by biopsies and he was started on steroids. I saw him back in clinic on 02/16/2025. OV 02.16.25 pt reports that he is feeling well and denies GI symptoms of concern at this time. pt reports since scope has been having normal bm. During this visit he has intractable nausea vomiting and was discovered to have left lower lobe pneumonia and is being currently treated for that. I was consulted to today intractable nausea vomiting. [facility] Medical History Acute infective gastroenteritis COPD exacerbation History of steroid therapy Low iron Seizures Shortness of breath on exertion History of pain when walking History of edema History of echocardiogram Cardiology follow-up encounter Cervical spinal cord injury Cervical stenosis of spine Numbness in right leg RUE numbness Diarrhea Hypokalemia Duodenal ulcer Anemia Diabetes mellitus, type 2 Hyperglycemia Hyponatremia Thrombocytopenia Pulmonary emboli COPD (chronic obstructive pulmonary disease) Imbalance Brain metastasis Pneumonia Sinus congestion Hx of radiation therapy Brain metastasis Frequent headaches Epistaxis Contact with or suspected exposure to other viral communicable disease Iron deficiency anemia due to chronic blood loss Encounter for immunotherapy Encounter for immunotherapy COVID-19 Nonrheumatic aortic (valve) stenosis with insufficiency Elevated troponin (05/15/21) Encephalopathy (05/15/21) Seizure (05/15/21) Metastatic renal cell carcinoma to lung Dyspnea Metastasis to adrenal gland Port-A-Cath in place Atherosclerotic heart disease of [place] coronary artery without angina pectoris Hyperlipidemia Wears glasses Wears dentures Gastric reflux Former smoker History of primary malignant neoplasm of left kidney 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 Skin cancer Abnormal colonoscopy Essential (primary) hypertension COPD (chronic obstructive pulmonary disease) Adenocarcinoma of right lung Home Medications ?Medication ?Instructions ?Recorded ?Last Taken ?Type rosuvastatin 40 mg tablet (Crestor) 40 mg PO QHS YING STEROL 08/18/18 01/09/25 20:00 History 40 mg carvedilol 25 mg tablet 25 mg PO BID blood pressure 04/30/21 03/20/25 History albuterol sulfate 90 mcg/actuation 1 puff inhalation Q 6H PRN SOB 05/31/21 06/12/21 History aerosol inhaler hydralazine 50 mg tablet 50 mg PO BID blood pressure 05/31/21 03/20/25 History apixaban 5 mg tablet (Eliquis) 2.5 mg (1/2 x 5 mg) PO BID #60 tabs 07/20/23 03/20/25 Rx amlodipine 10 mg tablet 10 mg PO DAILY #90 tabs 08/0903/20/25 Rx ipratropium 0.5 mg-albuterol 3 mg 3 ml inhalation Q4H PRN shortness 09/07/23 Unknown Rx (2.5 mg base)/3 mL nebulization of breath or wheezing #180 mL soln omeprazole 20 mg capsule,delayed 20 mg PO DAILY acid r educer 06/09/24 03/20/25 History release pembrolizumab 25 mg/mL intravenous 200 mg IV Q21D 04/0203/15/25 History solution (Keytruda) Allergy/AdvReac Type Severity Reaction Status Date / Time No Known Allergies Allergy Verified 03/21/25 09:45 Family History Sister Diabetes CAD (coronary artery disease) Mother CVA (cerebral vascular accident) CAD (coronary artery disease) Lung cancer Father CAD (coronary artery disease) Brother CAD (coronary artery disease) Surgical History H/O cervical discectomy History of cataract surgery History of lobectomy of lung History of nephrectomy, left History of coronary angioplasty (01/05/04) History of coronary artery stent placement (07/17/03) Social History household members: spouse Smoking Status: Former smoker Tobacco: How many years used: 40 second hand exposure: No alcohol intake: current alcohol intake frequency: a few times a month Alcohol type: beer substance use type: does not use seatbelt use: always do you feel safe at home: Yes ROS Constitutional Constitutional: Denies fatigue, fever(s), poor appetite, weight gain or weight loss Gastrointestinal Gastrointestinal: Denies belching, bloating, change in bowel habits, change in stool character, chewing difficulty, coffee ground emesis, constipation, cramping, diarrhea, dyspepsia, dysphagia, early satiety, excessive flatus, fecalincontinence, heartburn, hematemesis, hematochezia, hemorrhoids, loose stools, melena, nausea, odynophagia, rectal bleeding, tenesmus, vomiting or weight changes Physical Exam Const alert, oriented x3, no apparent distress and healthy appearing General Appearance: cooperative GI normal to inspection, nondistended, normoactive bowel sounds, soft to palpation,non-tender and non-distended Percussion: normal to percussion Rectal Exam: deferred Lab / Micro Data 03/21/25 10:53 03/21/25 10:23 Labs: Laboratory Results - last 24 hr 03/21/25 10:23: WBC Cancelled, Corrected WBC Cancelled, RBC Cancelled, Hgb Cancelled, Hct Cancelled, MCV Cancelled, MCH Cancelled, MCHC Cancelled, RDW Std Deviation Cancelled, RDW Coeff of Kailey Cancelled, Plt Count Cancelled, MPV Cancelled, Immature Gran % (Auto) Cancelled, Neut % (Auto) Cancelled, Lymph % (Auto) Cancelled, [place] % (Auto) Cancelled, Eos % (Auto) Cancelled, Baso % (Auto)Cancelled, Absolute Neuts (auto) Cancelled, Absolute Lymphs (auto) Cancelled, Total Counted Cancelled, Neutrophils % (Manual) Cancelled, Band Neutrophils % Cancelled, Lymphocytes % (Manual) Cancelled, Monocytes % (Manual) Cancelled, Eosinophils % (Manual) Cancelled, Basophils % (Manual) Cancelled, Metamyelocytes% Cancelled, Myelocytes % Cancelled, Promyelocytes % Cancelled, Blast Cells % Cancelled, Plasma Cell % (Manual) Cancelled, Other Cells % Cancelled, Nucleated RBC % Cancelled, Nucleated RBCs/100 WBC Cancelled, Differential Comment Cancelled, Diff Path Review Cancelled, Hypersegmented Neuts Cancelled, Atypical Lymphocytes Cancelled, Reactive Lymphocytes Cancelled, Smudge Cells Cancelled, Toxic Granulation Cancelled, Toxic Vacuolation Cancelled, Dohle Bodies Cancelled, Jessica Rods Cancelled, Platelet Estimate Cancelled, Plt Morphology Comment Cancelled, RBC Morphology Cancelled 03/21/25 10:23: RBC Morphology Cancelled, Polychromasia Cancelled, HypochromasiaCancelled, Basophilic Stippling Cancelled, Anisocytosis Cancelled, Microcytosis Cancelled, Macrocytosis Cancelled, Spherocytes Cancelled, Sickle Cells Cancelled, Target Cells Cancelled, Tear Drop Cells Cancelled, Ovalocytes Cancelled, Stomatocytes Cancelled, Foster-Niles Bodies Cancelled, Kezia Cells Cancelled, Bite Cells Cancelled, Crenated Cell Cancelled, Acanthocytes (Spur) Cancelled, Rouleaux Cancelled, Schistocytes Cancelled, Sodium 132 L, Potassium 3.6, Chloride 101, Carbon Dioxide 15.6 L, Anion Gap 15, BUN 14, Creatinine 0.89,Estim Creat Clear Calc 74.15, Est GFR (MDRD) Non-Af 91, BUN/Creatinine Ratio 15.5, Glucose 87, Calcium 8.3, Phosphorus 3.9, Magnesium 1.7, Total Bilirubin 0.43, AST 17, ALT 6, Alkaline Phosphatase 62, Total Protein 4.9 L, Albumin 2.9 L, Globulin 2.0 L, Albumin/Globulin Ratio 1.5, Lipase 23 03/21/25 10:53: WBC 3.9 L, RBC 4.03 L, Hgb 9.5 L, Hct 29.5 L, MCV 73.2 L, MCH 23.6 L, MCHC 32.2, RDW Std Deviation 47.2 H, RDW Coeff of Kailey 17.7 H, Plt Count 208, MPV 8.8, Immature Gran % (Auto) 1.300 H, Neut % (Auto) 57.3, Lymph % (Auto)19.8, C[place] % (Auto) 14.1 H, Eos % (Auto) 6.7 H, Baso % (Auto) 0.8, Absolute Neuts (auto) 2.2, Absolute Lymphs (auto) 0.77 L, Nucleated RBC % 0 Micro: Microbiology 03/21/25 19:46 Urine, Clean Catch Legionella Antigen - Final 03/21/25 19:46 Urine, Clean Catch Streptococcus pneumoniae Antigen (M - Final Imaging Radiology Impression Chest/Abdomen/Pelvis CT 03/21/25 10:03 IMPRESSION: New right pleural effusion with infiltration in both lungs worse on the right side as described. Status post left nephrectomy. Persistent masses in the right kidney. Reading Location: [facility] 03/22/25 152 <Electronically signed by Michael Chambers DO> Cosigner Signature (if applicable): CC: Dr. Jacob Jennings DO~ Signed [facility] Work Phone: [phone] Consult note [address] [facility] Note Date/Time March 22, 2025 5:31p m [facility] Medical Records Department [address] [place] [address] Pre-Anesthesia Evaluation 03/22/25 1723 MR#: [id number] Acct: [id number] Name: KENN ARSHAD Linda Rep #:[id number] : 1955 69 From: lE Acosta MD PCP: Dr. Jacob Jennings DO Status:AD M IN Y Race: C Location: [place] [address] ASA Classification* ASA Classification ASA Classification: 3 and E Assessment & Plan Anesthesia* Anesthesia Assessment Anesthesia Assessment: Discussed sedation and/or anesthesia options, risks, benefits, and alternatives with patient/parents/legal guardian/POA. Questions invited. The patient/parents/legal guardian/POA seems to understand and agrees to proceedwith anesthesia plan. Reviewed the physical assessment, medical history, allergy history and patient home medications list prior to surgery/procedure/anesthetic and documented any changes. Performed airway and anesthesia risk assessments. Anesthesia Type Anesthesia Type: MAC History Source History Obtained from:: Patient and Chart Anesthesia Focused Assessment* Temperature: 97.3 F Pulse Rate: 75 Blood Pressure: 109/58 Respiratory Rate: 15 Pulse Ox: 95 Oxygen Delivery Method: Room Air Oxygen Flow Rate (L/min): 3 Airway Assessment Mouth opens: >3 cm Mallampati Score: II Teeth Condition: Dentures (Patient has full upper and lower dentures. They willcome out.) Neck Range of motion (ROM): Limited ROM (Slight decrease in extension) Focused Labs Anesthesia Preop lab: CBC WBC 2.2 K/mm3 (4.4-11.0) L 03/22/25 06:10 03/22/25 RBC 4.13 M/mm3 (4.6-6.2) L 03/22/25 06:10 03/22/25 Hgb 9.9 g/dL (13.0-16.5) L 03/22/25 06:10 03/22/25 Hct 30.6 % (40-54) L 03/22/25 06:10 03/22/25 Plt Count 215 K/mm3 (150-450) 03/22/25 06:10 03/22/25 CHEMISTRY Potassium 4.1 mmol/L (3.3-5.1) 03/22/25 06:10 03/22/25 Sodium 132 mmol/L (133-145) L 03/22/25 06:10 03/22/25 Magnesium 1.7 mg/dL (1.5-2.2) 03/21/25 10:23 03/21/25 Phosphorus 3.9 mg/dL (2.7-4.5) 03/21/25 10:23 03/21/25 BUN 14 mg/dL (4-19) 03/22/25 06:10 03/22/25 Creatinine 0.91 mg/dL (0.70-1.20) 03/22/25 06:10 03/22/25 Glucose 153 mg/dL (70-99) H 03/22/25 06:10 03/22/25 POC Glucose 251 mg/dL (74-106) H 12/16/24 11:03 12/16/24 TSH 1.950 uIU/mL (0.300-4.200) 02/01/25 09:53 03/2 05/03 COAG PT 19.7 SECONDS (11.7-14.9) H 01/13/25 10:05 03/0 06/02 Pre-Assessment Diagnosis/Proposed Procedure Planned Operative Procedure(s): Esophagogastroduodenoscopy with possible biopsy. 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 When Was Last Pacemaker Check QUESTION #4 FULL TEXT: You/Your Family Experience fever (hyperthermia) with Anesthesia Last Oral Intake Last Oral intake: Last Oral Intake NPO since 00:01 03/22/25 11:48 Meds taken in AM with sips of Yes 03/22/25 11:48 water? Meds patient instructed to see 03/22/25 11:48 take am of surgery meds given at 0800 PONV PONV - lug breaker and wire puller: PONV - lug breaker and wire puller Female HX of Motion Sickness HX of N/V After Surgery Non-Smoker Duration of Surgery greater than 60 minutes Number of Risk Factors PONV Score Height & Weight Height & Weight: Anesthesia: Height & Weight Height 5 ft 5 in 03/22/25 11:48 Weight: 78.188 kg 03/22/25 11:48 Body Mass Index (BMI) 28.6 03/22/25 11:48 Respiratory Assessment Respiratory Assessment - lug breaker and wire puller: Respiratory Tract Infection Hx - lug breaker and wire puller Hx Respiratory Tract Infection No 01/19/25 10:31 Any additional information?: Yes Hx Respiratory Tract Infection: Yes History of Anesthesia Respiratory Infection details: Patient is currently being treated forpneumonia with steroids and antibiotics and oxygen. STOP Sleep Apnea STOP Sleep Apnea - lug breaker and wire puller: STOP Sleep Apnea - lug breaker and wire puller Hx Hypertension Yes 03/22/25 13:52 Hx Sleep Apnea No 03/21/25 17:55 CPAP No 03/21/25 17:55 BIPAP Do you snore loudly (louder No 03/21/25 17:55 than talking or can be heard Do you often feel tired/ No 03/21/25 17:55 fatigued/ sleepy during daytime? Has anyone observed you stop No 03/21/25 17:55 breathing during sleep? STOP Results Negative 03/21/25 17:55 QUESTION #5 FULL TEXT : Do you snore loudly (louder than talking or can be heard through closed doors)? Tobacco Use History Tobacco Use History - lug breaker and wire puller: Tobacco Use History - lug breaker and wire puller Tobacco Use Smoking Status Former smoker 03/21/25 17:55 Hx Tobacco Use No 03/21/25 17:55 Years Smoking Packs Smoked per Day Smoking Cessation Date was Yes - quit smoking within 15 03/21/25 17:55 within the last 15 years years Hx Smoking Cessation Date 03/12/20 03/21/25 17:55 Hx Smoking Cessation Yes 03/21/25 17:55 Counseling Hematologic Medial History Hematologic Hx - lug breaker and wire puller: Hematologic Medical Hx - manager servicing Hx of Blood Transfusion No 03/21/25 17:55 Hx of Transfusion in last 3 No 03/21/25 17:55 Months Date of Last Transfusion (if within last 3 months) Ever experience any problems No 03/21/25 17:55 with transfusion(s)? Specify any problems Hx of Preganancy in last 3 N/A 03/21/25 17:55 Months Nurse Filling Out Transfusion KBORNSTIN 03/21/25 17:55 & Questions: Date: 03/21/25 03/21/25 17:55 Time: 18:21 03/21/25 17:55 Patient unable to answer at this time (ie. confused, unrespo /Reproduction History /Reproductive History - lug breaker and wire puller: /Reproductive Hx- lug breaker and wire puller Hx Now Gestational Age (in weeks): EDC: Hx Hx Para Hx Section SAB No 01/19/25 10:31 Active Medications Active Medications: Current Medications Generic Name Dose Route Start Last Admin Trade Name Freq PRN Reason Stop Dose Admin Acetaminophen 650 mg 03/21/25 17:55 Acetaminophen 325 Mg Tablet PO Q4H PRN PRN Fever, pain 1-10/10 Albuterol/Ipratropium 3 ml 03/22/25 09:45 03/22/25 13:14 Ipratropium/Albuterol Sulfate 3 Ml Ampul.Neb INHALATION 3 ml Q6H.RT DAVE Administration Amlodipine Besylate 10 mg 03/22/25 10:00 03/22/25 08:02 Amlodipine 10 Mg Tablet PO 10 mg DAILY DAVE Administration Protocol Apixaban 2.5 mg 03/21/25 22:00 03/22/25 08:01 Apixaban 2.5 Mg Tablet ([facility]) PO 2.5 mg BID DAVE Administration Atorvastatin Calcium 80 mg 03/21/25 22:00 03/21/25 22:24 Atorvastatin Calcium 80 Mg Tablet PO 80 mg QHS DAVE Administration Carvedilol 25 mg 03/22/25 08:00 03/22/25 08:01 Carvedilol 25 Mg Tablet PO 25 mg BIDCM DAVE Administration Protocol Guaifenesin 20 ml 03/21/25 17:55 Guaifenesin 10 Ml Udc (200mg/10ml) PO Q4H PRN PRN COUGH Hydralazine HCl 50 mg 03/21/25 22:00 03/22/25 08:02 Hydralazine 50 Mg Tablet PO 50 mg BID DAVE Administration Protocol Pantoprazole Sodium 40 mg/ 110 mls @ 330 mls/hr 03/21/25 22:00 03/22/25 12:00 Sodium Chloride IV Infused Q12 DAVE Infusion Piperacillin Sod/Tazobactam 50 mls @ 12.5 mls/hr 03/21/25 22:00 03/22/25 14:17 Sod 3.375 gm/ Sodium Chloride IV 12.5 mls/hr Q8 DAVE Administration Sodium Chloride 250 mls @ 15 mls/hr 03/21/25 17:56 03/22/25 12:40 IV 15 mls/hr .[id number] PRN Infusion Saline Flush Sodium Chloride 250 mls @ 15 mls/hr 03/21/25 17:56 IV .[id number] PRN Additional IVPB Infusion Lactated Ringer's 1,000 mls @ 15 mls/hr 03/22/25 17:00 IV .Q48H DAVE Melatonin 3 mg 03/21/25 17:55 Melatonin 3 Mg Tablet PO QHS PRN PRN INSOMNIA Methylprednisolone 40 mg 03/21/25 22:00 03/22/25 14:15 Methylprednisolone 40 Mg/Ml Vial IV 40 mg Q8 DAVE Administration Ondansetron HCl 4 mg 03/21/25 17:55 Ondansetron 4 Mg/2 Ml Vial IV Q8H PRN PRN NAUSEA/VOMITING Prochlorperazine Edisylate 5 mg 03/21/25 17:55 Prochlorperazine 10 Mg/2 Ml Vial IV Q4H PRN PRN Breakthrough nausea/vomiting Senna/Docusate Sodium 2 tablet 03/21/25 17:55 Senna/Docusate Sodium 1 Tablet PO BID PRN PRN Constipation Sodium Chloride 10 - 40 ml 03/21/25 17:56 03/22/25 14:15 0.9% Saline Lock 10 Ml Syringe IV 10 ml UD PRN Administration SALINE FLUSH PFSH Medical History Acute infective gastroenteritis COPD exacerbation History of steroid therapy Low iron Seizures Shortness of breath on exertion History of pain when walking History of edema History of echocardiogram Cardiology follow-up encounter Cervical spinal cord injury Cervical stenosis of spine Numbness in right leg RUE numbness Diarrhea Hypokalemia Duodenal ulcer Anemia Diabetes mellitus, type 2 Hyperglycemia Hyponatremia Thrombocytopenia Pulmonary emboli COPD (chronic obstructive pulmonary disease) Imbalance Brain metastasis Pneumonia Sinus congestion Hx of radiation therapy Brain metastasis Frequent headaches Epistaxis Contact with or suspected exposure to other viral communicable disease Iron deficiency anemia due to chronic blood loss Encounter for immunotherapy Encounter for immunotherapy COVID-19 Nonrheumatic aortic (valve) stenosis with insufficiency Elevated troponin (05/15/21) Encephalopathy (05/15/21) Seizure (05/15/21) Metastatic renal cell carcinoma to lung Dyspnea Metastasis to adrenal gland Port-A-Cath in place Atherosclerotic heart disease of [place] coronary artery without angina pectoris Hyperlipidemia Wears glasses Wears dentures Gastric reflux Former smoker History of primary malignant neoplasm of left kidney 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 Skin cancer Abnormal colonoscopy Essential (primary) hypertension COPD (chronic obstructive pulmonary disease) Adenocarcinoma of right lung Home Medications ?Medication ?Instructions ?Recorded ?Last Taken ?Type rosuvastatin 40 mg tablet (Crestor) 40 mg PO QHS YING STEROL 08/18/18 01/09/25 20:00 History 40 mg carvedilol 25 mg tablet 25 mg PO BID blood pressure 04/30/21 03/20/25 History albuterol sulfate 90 mcg/actuation 1 puff inhalation Q 6H PRN SOB 05/31/21 06/12/21 History aerosol inhaler hydralazine 50 mg tablet 50 mg PO BID blood pressure 05/31/21 03/20/25 History apixaban 5 mg tablet (Eliquis) 2.5 mg (1/2 x 5 mg) PO BID #60 tabs 07/20/23 03/20/25 Rx amlodipine 10 mg tablet 10 mg PO DAILY #90 tabs 08/0903/20/25 Rx ipratropium 0.5 mg-albuterol 3 mg 3 ml inhalation Q4H PRN shortness 09/07/23 Unknown Rx (2.5 mg base)/3 mL nebulization of breath or wheezing #180 mL soln omeprazole 20 mg capsule,delayed 20 mg PO DAILY acid r educer 06/09/24 03/20/25 History release pembrolizumab 25 mg/mL intravenous 200 mg IV Q21D 04/0203/15/25 History solution (Keytruda) Allergy/AdvReac Type Severity Reaction Status Date / Time No Known Allergies Allergy Verified 03/21/25 09:45 Family History Sister Diabetes CAD (coronary artery disease) Mother CVA (cerebral vascular accident) CAD (coronary artery disease) Lung cancer Father CAD (coronary artery disease) Brother CAD (coronary artery disease) Surgical History H/O cervical discectomy History of cataract surgery History of lobectomy of lung History of nephrectomy, left History of coronary angioplasty (01/05/04) History of coronary artery stent placement (07/17/03) Social History household members: spouse Smoking Status: Former smoker Tobacco: How many years used: 40 second hand exposure: No alcohol intake: current alcohol intake frequency: a few times a month Alcohol type: beer substance use type: does not use seatbelt use: always do you feel safe at home: Yes Review of Systems (Anesthesia) ROS Narrative System reviewed and no additional complaints, except as documented. 03/22/25 1731 <Electronically signed by El lovett MD> Date _ El Acosta MD Cosigner Signature: Date CC: ~ Signed [facility] Work Phone: [phone]) [phone] Procedure [facility] 03-22-2025 Procedure [facility]05-14-2025 Progress note Author Emmanuel Kaiser [facility] Note Date/Time March 22, 2025 11:45 am [facility] Medical Records Department [address] [place] [id number] Progress Note - Hospitalist 03/22/25 0954 MR#: [id number] Acct: [id number] Name: KENN ARSHAD Linda Rep #:[id number] : 1955 69 From: Emmanuel Nava PCP: Dr. Jacob Jennings, DO Status:AD M IN Location: [place] [address] Reason for Visit Reason for Visit: Diagnoses Pneumonia, unspecified organism (03/21/25) Hypoxemia (03/21/25) Dysphagia, unspecified (03/21/25) Objective Data Objective Data Vital Signs: Vital Signs Temp Pulse Resp BP Pulse Ox O2 Del Method O2 Flow Rate 97.6 F L 84 18 114/56 L 97 Nasal Cannula 3 03/22/25 07:52 03/22/25 08:02 03/22/25 07:52 03/22/25 08:02 03/22/25 07:52 03/22/25 07:52 03/22/25 07:52 Oxygen Flow Rate (L/min) 3 Oxygen Delivery Method Nasal Cannula Weight: 173 lb 11.588 oz Body Mass Index (BMI) 28.9 Intake & Output: Intake and Output for Last 24 Hours 03/20/25 03/21/25 03/22/25 23:59 23:59 23:59 Intake Total 2372.17 / 2372.17 1140.08 / 1140.08 Balance 2372.17 / 2372.17 1140.08 / 1140.08 Lab / Micro Data 03/22/25 06:10 03/22/25 06:10 Labs: Laboratory Results - last 24 hr 03/21/25 10:23: Sodium 132 L, Potassium 3.6, Chloride 101, Carbon Dioxide 15.6 L, Anion Gap 15, BUN 14, Creatinine 0.89, Estim Creat Clear Calc 74.15, Est GFR (MDRD) Non-Af 91, BUN/Creatinine Ratio 15.5, Glucose 87, Calcium 8.3, Phosphorus3.9, Magnesium 1.7, Total Bilirubin 0.43, AST 17, ALT 6, Alkaline Phosphatase 62, Total Protein 4.9 L, Albumin 2.9 L, Globulin 2.0 L, Albumin/Globulin Ratio 1.5, Lipase 23 03/21/25 10:53: WBC 3.9 L, RBC 4.03 L, Hgb 9.5 L, Hct 29.5 L, MCV 73.2 L, MCH 23.6 L, MCHC 32.2, RDW Std Deviation 47.2 H, RDW Coeff of Kailey 17.7 H, Plt Count 208, MPV 8.8, Immature Gran % (Auto) 1.300 H, Neut % (Auto) 57.3, Lymph % (Auto)19.8, [place] % (Auto) 14.1 H, Eos % (Auto) 6.7 H, Baso % (Auto) 0.8, Absolute Neuts (auto) 2.2, Absolute Lymphs (auto) 0.77 L, Nucleated RBC % 0 03/22/25 06:10: WBC 2.2 L, RBC 4.13 L, Hgb 9.9 L, Hct 30.6 L, MCV 74.1 L, MCH 24.0 L, MCHC 32.4, RDW Std Deviation 46.7 H, RDW Coeff of Kailey 17.5 H, Plt Count 215, MPV 9.0, Immature Gran % (Auto) 1.800 H, Neut % (Auto) 78.1 H, Lymph % (Auto) 17.3 L, [place] % (Auto) 2.3, Eos % (Auto) 0.0, Baso % (Auto) 0.5, Absolute Neuts (auto) 1.7 L, Absolute Lymphs (auto) 0.38 L, Nucleated RBC % 0, Differential Comment S, Sodium 132 L, Potassium 4.1, Chloride 103, Carbon Dioxide 13.8 L, Anion Gap 15, BUN 14, Creatinine 0.91, Estim Creat Clear Calc 72.05, Est GFR (MDRD) Non-Af 91, BUN/Creatinine Ratio 15.1, Glucose 153 H, Calcium 8.3, Total Bilirubin 0.28, AST 15, ALT 7, Alkaline Phosphatase 61, TotalProtein 5.3 L, Albumin 3.1 L, Globulin 2.2, Albumin/Globulin Ratio 1.4 Micro: Microbiology 03/21/25 20:45 Mucosa - Nasopharyngeal Respiratory Panel (PCR) - Final 03/21/25 19:40 Nasal Secretion MRSA (PCR) - Final 03/21/25 19:46 Urine, Clean Catch Legionella Antigen - Final 03/21/25 19:46 Urine, Clean Catch Streptococcus pneumoniae Antigen (M - Final Radiography Diagnostic Testing: Radiology Impression Chest/Abdomen/Pelvis CT 03/21/25 10:03 IMPRESSION: New right pleural effusion with infiltration in both lungs worse on the right side as described. Status post left nephrectomy. Persistent masses in the right kidney. Reading Location: [facility] Physical Exam Narrative Seen and examined Personal history of metastatic renal cell carcinoma. Admitted with nausea vomiting not able to keep food in the stomach. He states he vomits right away within 10 to 15 minutes after eating. No abdominal pain Physical exam General: Alert, Oriented x3, Cooperative HEENT: Atraumatic, PERRLA, EOMI, Normocephalic. Oral: No Gingival or Mucosal Lesions/ Ulcerations Neck: Supple, No JVD, Negative Carotid Bruits Chest wall/Lungs: Mediport on the right chest wall. Air entry diminished in bilateral lung bases, Right more than left. No crepitation. Cardiovascular: Regular rate and rhythm, Normal S1,S2, No M/G/R Abdomen: Bowel Sounds Present, Soft, Non Tender, Non-Distended : No dysuria. No renal angle tenderness. No suprapubic tenderness. Extremities: No edema, Capillary Refill Less than 3 Seconds Skin: No rashes, No breakdown Musculoskeletal: No Tenderness to Palpation of Joints or Extremities Neurological: Cranial nerves II-XII grossly intact, DTR 2+/4. No acute focal neurological deficit. Psych/Mental Status: Normal Affect, Appropriate. Assessment & Plan Assessment/Plan (1) Pneumonia: (2) Hypoxia: (3) Dysphagia: PLAN: Plan The patient is a 69 y/o M admitted with nausea vomiting for 3 whenever she triesto eat it comes back right away. Does not feel weeks unable to keep things down. She does not feel that it gets into the stomach. Denies abdominal pain, chest pain shortness of breath, diarrhea melena or hematochezia. Denies dysuria #1. Possible left lower lobe pneumonia with new right pleural effusion worse onthe right side with mild COPD exacerbation: Patient is being admitted on MedSurgfloor. Chest abdomen pelvis CT was done which shows new right pleural effusion with infiltration in both lungs. Respiratory panel, MRSA nasal screen and urinary antigens are negative. Mild leukopenia. Patient is being managed on scheduled bronchodilator, IV Solu-Medrol, Mucinex, incentive spirometry and Pep. #2. Intractable N/V, unclear etiology with associated worsening severe protein calorie malnutrition: GI is consulted. Symptomatic management. IV fluid oral intake, clear liquid diet. No acute findings reported in CT chest/abdomen/pelvis status post left nephrectomy. Persistent masses in the right kidney. #3. Acute on chronic hyponatremia, suspected component hypovolemia poor oral intake ability: Admission sodium 132, chloride 101,, repeat sodium is same. 132. IV fluid did not make the difference. Continue IV fluid. Suspicion of possible SIADH with history of cancer COPD. #4. Chronic Kidney Disease Stage II : Admission BUN/Cr 14/0.89, GFR 91, patientbaseline kidney function #5. Chronic microcytic anemia: Admission hemoglobin 9.5, MCV 73.2, baseline hemoglobin primarily 10-11 although most recently 03/15/2025 hemoglobin 10, continue to trend and if any concerns arise about further decreasing levels may need to hold NOAC and obtain guaiac. 03/22: Hemoglobin 9.9. #6. Hypertension: Continue home regimen including Coreg, hydralazine, amlodipine with hold parameters as needed, PRN hydralazine. #7. Hyperlipidemia: We will continue patient on statin therapy. #8. CAD: Status post previous PCI,: Continue patient apixaban cautiously, statin, Coreg, not on XIN inhibitor/ARB. #9. History of VTE: Patient with history of previous DVT, PE, continue patient chronic Eliquis regimen cautiously. #10. History of metastatic renal cell carcinoma, history of brain tumor unclearif this was metastatic or not with associated previous seizure history: Patient with history of metastatic renal cell carcinoma status post left nephrectomy with metastatic disease to the lung status post also lobectomy, chart history ofquestionable some type of brain tumor but uncertain if this was metastatic and unclear previous interventions, currently per record maintained outpatient on Keytruda, encourage continued outpatient follow-up with oncology as previously arranged. Mag and Phos requested. #11. GERD with history of duodenal ulcer disease status post previous GI bleed:We will continue patient on PPI, currently placed on IV version until oral intake improved especially given intractable nausea and emesis #12. Former tobacco use: Encourage continued tobacco cessation. #13. DVT prophylaxis: Continue patient on apixaban regimen. #14. CODE status: Patient does not have healthcare power of prosecuting attorney or living will in place but he notes his who is present would be his medical decision- maker if necessary. Discussed CODE status at length including difference between FULL code, DNR-CCA and DNR-CC status. Following discussions about the differences in these status, requested DNR-CCA, no intubation. Charges/Coding Visit Charges Inpatient E&M: 32232 Subs Hosp L2 03/22/25 1145 <Electronically signed by Emmanuel Kaiser MD> Cosigner Signature (if applicable): CC: ~ Signed [facility] Work Phone: [phone]) 694-241705-13-2025 Consult note Author Sukh Holland [facility] Note Date/Time March 21, 2025 8:07p m [facility] Medical Records Department [address] [place] [address] Pharmacokinetic/Renal -Consult 03/21/251938 MR#: [id number] Acct: [id number] Name: KENN ARSHAD Rep #:[id number] : 1955 69 From: Sukh carter PCP: Dr. Jacob Jennings, DO Status:AD M IN Y Location: [place] [id number] Consult Antibiotic Management Pharmacy has been consulted to manage selected antibiotic: Vancomycin Type of Intervention Type of Consult: New start Suspected Infection Suspected Infection: Pneumonia Labs Labs: Sodium 132 mmol/L (133-145) L 03/21/25 10:23 Potassium 3.6 mmol/L (3.3-5.1) 03/21/25 10:23 Chloride 101 mmol/L (98-108) 03/21/25 10:23 Carbon Dioxide 15.6 mmol/L (21.0-32.0) L 03/21/25 10:23 Anion Gap 15 (5-15) 03/21/25 10:23 BUN 14 mg/dL (4-19) 03/21/25 10:23 Creatinine 0.89 mg/dL (0.70-1.20) 03/21/25 10:23 Est GFR (MDRD) Non-Af 91 (>60) 03/21/25 10:23 BUN/Creatinine Ratio 15.5 RATIO (10-20) 03/21/25 10:23 Glucose 87 mg/dL (70-99) 03/21/25 10:23 Dosing Weight Weight used for dosin kg Estimated Creatinine Clearance Estimated Creatinine Clearance: 74 ML/MIN Goal Trough Goal Trough: 15-20 mcg/mL Pharmacy Plan for Drug Dosing Pharmacy Plan for Drug Dosing: Give load dose of 2000mg IV x1, then continue with 1000mg q12h per [facility] dosing protocol. Check a trough before the 4th total dose. Pharmacy Service will continue to monitor and adjust dosing as required. Follow-Up Labs Follow-Up Labs: Trough: Vancomycin Date/Time Labs Ordered Labs to be done on [date and time ordered]: 03/23/25 07:30 03/21/251940 <Electronically signed by Sukh De Luna erg> Date _ Sukh Holland 03/21/252006 <Electronically signed by Sayra shaffer MD> Cosigner Signature (if applicable): Date Sayra Fuentes MD CC: ~ Signed [facility] Work Phone: [phone]) 119-214205-13-2025 History and physical note Author Sayra Fuentes [facility] Note Date/Time March 21, 2025 5:59p m [facility] Medical Records Department [address] [place] [address] H&P Exam - Hospitalist 03/21/25 1647 MR#: [id number] Acct: [id number] Name: KENN ARSHAD Rep #:[id number] : 1955 69 From: Sayra Fuentes MD PCP: Dr. Jacob Jennings, DO Status:AD M IN Location: [facility] [id number] HPI - General General Date of Admission: 03/21/25 Date of Service: 03/21/25 Chief Complaint: Intractable N/V HPI Narrative The patient is a 69 y/o M w/ PMHx: Obesity, CKD stage II per previous GFR trending, Seizure disorder, Diabetes mellitus type 2, GERD with history of duodenal ulcer with history of previous GI bleed, Chronic headaches, COPD, Chronic thrombocytopenia,Hx CTE w/ DVT/PE, Chronic hyponatremia, Metastatic renal cell carcinoma to the lung status post left nephrectomy and lobectomy withmetastatic disease including to the brain, CAD status post PCI, Former tobacco use, Chronic anemia who presents to the [facility] ED on 03/21/2025 with 3 weeks of persistent intermittent nausea and emesis with difficulty eating anything as symptoms worsened by any attempted food intake noting that when he even attempts to swallow it starts to come back up with no hematemesis or coffee-ground emesis and no specific abdominal pain but given debility, inability to appropriately hydrate or eat prompted ED evaluation. He also reports mild occasional cough but not markedly productive but he does feel more short of breath especially with exertion and has occasionally been wheezing. Workup in the ED included T97.7, heart rate 87, BP 112/82, respiratory rate 24, 95% on 2 L nasal cannula with most recent repeat [id number], heart rate 78, BP 98/44, respiratory rate 18, 93% on 2 L nasal cannula, CBC with WBC 3.9, hemoglobin 9.5, MCV 73.2, platelet 2 8 with increased immaturegranulocytes with lymphopenia, CMP with sodium 132, carbon dioxide 15.6, BUN/creatinine 14/0.89, GFR 91, not marked appearing hepatic profile, CT chest/abdomen/pelvis with contrast with a new right pleural effusion with infiltration in both lungs worse on the right side with persistent masses in theright kidney status post left nephrectomy, in the ED patient was able to eventually drink an Ensure following IV fluids and Zofran however when he was ambulated his pulse oximeter dropped to 82%. Patient administered IV Rocephin, azithromycin given concern for pneumonia. Upon hospitalist evaluation patient also noted wheezing thus patient also administered IV solumedrol 125 mg IV x 1 in the ED. [facility] Medical History Acute infective gastroenteritis COPD exacerbation History of steroid therapy Low iron Seizures Shortness of breath on exertion History of pain when walking History of edema History of echocardiogram Cardiology follow-up encounter Cervical spinal cord injury Cervical stenosis of spine Numbness in right leg RUE numbness Diarrhea Hypokalemia Duodenal ulcer Anemia Diabetes mellitus, type 2 Hyperglycemia Hyponatremia Thrombocytopenia Pulmonary emboli COPD (chronic obstructive pulmonary disease) Imbalance Brain metastasis Pneumonia Sinus congestion Hx of radiation therapy Brain metastasis Frequent headaches Epistaxis Contact with or suspected exposure to other viral communicable disease Iron deficiency anemia due to chronic blood loss Encounter for immunotherapy Encounter for immunotherapy COVID-19 Nonrheumatic aortic (valve) stenosis with insufficiency Elevated troponin (05/15/21) Encephalopathy (05/15/21) Seizure (05/15/21) Metastatic renal cell carcinoma to lung Dyspnea Metastasis to adrenal gland Port-A-Cath in place Atherosclerotic heart disease of [place] coronary artery without angina pectoris Hyperlipidemia Wears glasses Wears dentures Gastric reflux Former smoker History of primary malignant neoplasm of left kidney 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 Skin cancer Abnormal colonoscopy Essential (primary) hypertension COPD (chronic obstructive pulmonary disease) Adenocarcinoma of right lung Home Medications ?Medication ?Instructions ?Recorded ?Last Taken ?Type rosuvastatin 40 mg tablet (Crestor) 40 mg PO QHS YING STEROL 08/18/18 01/09/25 20:00 History 40 mg carvedilol 25 mg tablet 25 mg PO BID blood pressure 04/30/21 03/20/25 History albuterol sulfate 90 mcg/actuation 1 puff inhalation Q 6H PRN SOB 05/31/21 06/12/21 History aerosol inhaler hydralazine 50 mg tablet 50 mg PO BID blood pressure 05/31/21 03/20/25 History apixaban 5 mg tablet (Eliquis) 2.5 mg (1/2 x 5 mg) PO BID #60 tabs 07/20/23 03/20/25 Rx amlodipine 10 mg tablet 10 mg PO DAILY #90 tabs 08/0903/20/25 Rx ipratropium 0.5 mg-albuterol 3 mg 3 ml inhalation Q4H PRN shortness 09/07/23 Unknown Rx (2.5 mg base)/3 mL nebulization of breath or wheezing #180 mL soln omeprazole 20 mg capsule,delayed 20 mg PO DAILY acid r educer 06/09/24 03/20/25 History release pembrolizumab 25 mg/mL intravenous 200 mg IV Q21D 04/0203/15/25 History solution (Keytruda) Allergy/AdvReac Type Severity Reaction Status Date / Time No Known Allergies Allergy Verified 03/21/25 09:45 Family History Sister Diabetes CAD (coronary artery disease) Mother CVA (cerebral vascular accident) CAD (coronary artery disease) Lung cancer Father CAD (coronary artery disease) Brother CAD (coronary artery disease) Surgical History H/O cervical discectomy History of cataract surgery History of lobectomy of lung History of nephrectomy, left History of coronary angioplasty (01/05/04) History of coronary artery stent placement (07/17/03) Social History household members: spouse Smoking Status: Former smoker Tobacco: How many years used: 40 second hand exposure: No alcohol intake: current alcohol intake frequency: a few times a month Alcohol type: beer substance use type: does not use seatbelt use: always do you feel safe at home: Yes ROS ROS Narrative Admission Review of Systems: CONSTITUTIONAL: No weight loss, fever, chills, +weakness or fatigue. HEENT: Eyes: No visual loss, blurred vision, double vision or yellow sclerae. Ears, Nose, Throat: No hearing loss, sneezing, congestion, rhinorrhea. SKIN: No rash or itching, lesions, wounds except + very staged ecchymoses, abrasion, bilateral lower extremity venous stasis skin changes CARDIOVASCULAR: No chest pain, chest pressure or chest discomfort, palpitations,edema, orthopnea, syncopal events. RESPIRATORY: + Persistent not markedly productive cough, dyspnea, wheezing. No hemoptysis. GASTROINTESTINAL: + Anorexia, intractable nausea and emesis with any oral intakeattempts, mild generalized abdominal discomfort with palpation but no rebound orguarding. No diarrhea, constipation, melena, BRBPR. GENITOURINARY: No dysuria, frequency, urgency or retention. NEUROLOGICAL: No headache, dizziness, syncope, paralysis, ataxia, numbness or tingling in the extremities, focal weakness, change in bowel or bladder control,seizure. MUSCULOSKELETAL: + muscle, back pain, joint pain or stiffness. HEMATOLOGIC: + Chronic anemia, easy bleeding/bruising. LYMPHATICS: No enlarged nodes. No history of splenectomy. PSYCHIATRIC: No history of depression or anxiety. ENDOCRINOLOGIC: No reports of sweating, cold or heat intolerance. No polyuria orpolydipsia. ALLERGIES: + History of allergic rhinitis. Vital Signs Vital Signs Vital Signs: 03/21/25 09:45 03/21/25 09:47 03/21/25 11:45 Temperature 97.7 F L 97.7 F L Temperature Source Temporal Oral Pulse Rate 87 83 Respiratory Rate 24 H 20 H Blood Pressure 112/82 H 104/88 H 109/59 L Blood Pressure Mean 92 93 75 Pulse Ox 95 96 Oxygen Delivery Method Nasal Cannula Nasal Cannula Oxygen Flow Rate (L/min) 2 2 03/21/25 13:45 03/21/25 15:00 03/21/25 16:22 Temperature 98.2 F 98.2 F Temperature Source Oral Pulse Rate 83 85 Respiratory Rate 27 H 24 H Blood Pressure 108/57 L 100/55 L 98/44 L Blood Pressure Mean 74 70 62 Pulse Ox 92 94 92 Oxygen Delivery Method Nasal Cannula Room Air Oxygen Flow Rate (L/min) 03/21/25 16:30 Temperature Temperature Source Pulse Rate 78 Respiratory Rate 18 Blood Pressure Blood Pressure Mean Pulse Ox 93 Oxygen Delivery Method Nasal Cannula Oxygen Flow Rate (L/min) 2 Weight Weight: 176 lb 2.389 oz Body Mass Index (BMI) 29.2 Physical Exam Narrative Physical Examination: General: Awake, alert, oriented x 3 and cooperative, seated upright in the ED bed, fatigued appearing, mildly increased RR but no distress. Skin: Normal color, normal turgor, no icterus, no cyanosis except occasional stage ecchymoses, abrasions. HEENT: AT/NC, EOMI, PERRLA, mildly dry MM, no carotid bruits or JVD noted. Lungs: Diminished, greater bases, R> L, mildly increased respiratory rate but nodistress, anterior expiratory wheezing bilaterally, mildly rhonchorous left base, no marked rales. Heart: Regular rate and rhythm; no gallop, rub audible. Abdomen: Soft, mild generalized diffuse tenderness with no rebound or guarding, no marked distention, mildly hyperactive BS, no appreciated HSM. Extremities: No cyanosis, clubbing, or edema. Neurological: Patient awake, alert, oriented as noted, cognitive function intact; pupils equally reactive to light and accommodation, cranial nerves grossly normal, moving all 4 extremities, no focal deficits, strength moderatelyto severely globally decreased secondary to acute presentation and complicated by underlying comorbidities Psychiatric: Affect appears flat, fatigued, no evidence of respiratory distress,no acute evidence of depressive or anxiety feelings. Results Lab / Micro Data 03/21/25 10:53 03/21/25 10:23 Labs: Laboratory Results - last 24 hr 03/21/25 10:23: WBC Cancelled, Corrected WBC Cancelled, RBC Cancelled, Hgb Cancelled, Hct Cancelled, MCV Cancelled, MCH Cancelled, MCHC Cancelled, RDW Std Deviation Cancelled, RDW Coeff of Kailey Cancelled, Plt Count Cancelled, MPV Cancelled, Immature Gran % (Auto) Cancelled, Neut % (Auto) Cancelled, Lymph % (Auto) Cancelled, [place] % (Auto) Cancelled, Eos % (Auto) Cancelled, Baso % (Auto)Cancelled, Absolute Neuts (auto) Cancelled, Absolute Lymphs (auto) Cancelled, Total Counted Cancelled, Neutrophils % (Manual) Cancelled, Band Neutrophils % Cancelled, Lymphocytes % (Manual) Cancelled, Monocytes % (Manual) Cancelled, Eosinophils % (Manual) Cancelled, Basophils % (Manual) Cancelled, Metamyelocytes% Cancelled, Myelocytes % Cancelled, Promyelocytes % Cancelled, Blast Cells % Cancelled, Plasma Cell % (Manual) Cancelled, Other Cells % Cancelled, Nucleated RBC % Cancelled, Nucleated RBCs/100 WBC Cancelled, Differential Comment Cancelled, Diff Path Review Cancelled, Hypersegmented Neuts Cancelled, Atypical Lymphocytes Cancelled, Reactive Lymphocytes Cancelled, Smudge Cells Cancelled, Toxic Granulation Cancelled, Toxic Vacuolation Cancelled, Dohle Bodies Cancelled, Jessica Rods Cancelled, Platelet Estimate Cancelled, Plt Morphology Comment Cancelled, RBC Morphology Cancelled 03/21/25 10:23: RBC Morphology Cancelled, Polychromasia Cancelled, HypochromasiaCancelled, Basophilic Stippling Cancelled, Anisocytosis Cancelled, Microcytosis Cancelled, Macrocytosis Cancelled, Spherocytes Cancelled, Sickle Cells Cancelled, Target Cells Cancelled, Tear Drop Cells Cancelled, Ovalocytes Cancelled, Stomatocytes Cancelled, Foster-Niles Bodies Cancelled, Frazer Cells Cancelled, Bite Cells Cancelled, Crenated Cell Cancelled, Acanthocytes (Spur) Cancelled, Rouleaux Cancelled, Schistocytes Cancelled, Sodium 132 L, Potassium 3.6, Chloride 101, Carbon Dioxide 15.6 L, Anion Gap 15, BUN 14, Creatinine 0.89,Estim Creat Clear Calc 74.15, Est GFR (MDRD) Non-Af 91, BUN/Creatinine Ratio 15.5, Glucose 87, Calcium 8.3, Total Bilirubin 0.43, AST 17, ALT 6, Alkaline Phosphatase 62, Total Protein 4.9 L, Albumin 2.9 L, Globulin 2.0 L, Albumin/Globulin Ratio 1.5, Lipase 23 03/21/25 10:53: WBC 3.9 L, RBC 4.03 L, Hgb 9.5 L, Hct 29.5 L, MCV 73.2 L, MCH 23.6 L, MCHC 32.2, RDW Std Deviation 47.2 H, RDW Coeff of Kailey 17.7 H, Plt Count 208, MPV 8.8, Immature Gran % (Auto) 1.300 H, Neut % (Auto) 57.3, Lymph % (Auto)19.8, [place] % (Auto) 14.1 H, Eos % (Auto) 6.7 H, Baso % (Auto) 0.8, Absolute Neuts (auto) 2.2, Absolute Lymphs (auto) 0.77 L, Nucleated RBC % 0 Imaging Radiology Impression Chest/Abdomen/Pelvis CT 03/21/25 10:03 IMPRESSION: New right pleural effusion with infiltration in both lungs worse on the right side as described. Status post left nephrectomy. Persistent masses in the right kidney. Reading Location: [id number] Assessment & Plan Assessment/Plan (1) Pneumonia: (2) Hypoxia: (3) Dysphagia: PLAN: Plan The patient is a 69 y/o M w/ PMHx: Obesity, CKD stage II per previous GFR trending, Seizure disorder, Diabetes mellitus type 2, GERD with history of duodenal ulcer with history of previous GI bleed, Chronic headaches, COPD, Chronic thrombocytopenia,Hx CTE w/ DVT/PE, Chronic hyponatremia, Metastatic renal cell carcinoma to the lung status post left nephrectomy and lobectomy withmetastatic disease including to the brain, CAD status post PCI, Former tobacco use, Chronic anemia who presents to the [facility] ED on 03/21/2025 with 3 weeks of persistent intermittent nausea and emesis with difficulty eating anything as symptoms worsened by any attempted food intake noting that when he even attempts to swallow it starts to come back up with no hematemesis or coffee-ground emesis and no specific abdominal pain but given debility, inability to appropriately hydrate or eat prompted ED evaluation. #1. Acute hypoxia secondary to LL Pneumonia, Possible GP/GN organisms given recent hospitalization history and Acute on Chronic COPD Exacerbation: Will admit to [facility], maintain on oxygen with wean as tolerated to room air, continue ATCduonebs, PRN albuterol, maintain on IV solumedrol, maintain on IV Zosyn and Vancomycin w/ MRS screen requested, HOB, IS parameters w/ pending sputum cultures and urine antigens. PT/OT/CM consulted for discharge planning. #2. Intractable N/V, unclear etiology with associated worsening severe protein calorie malnutrition especially given underlying disease history as noted: Givenpersistent ongoing difficulty with intake with emesis with any oral intake attempts although he states in the ED he was able to drink a liquid protein willmaintain on clear liquids with IV PPI, monitor oral intake, as needed antiemeticregimen, nutrition consulted for recommendations given concern for malnutrition given significant length of time without appropriate nutrition, will consult GI especially given metastatic cancer history despite there being no findings on CTimaging still some concerns. #3. Acute on chronic hyponatremia, suspected component hypovolemia poor oral intake ability: Admission sodium 132, chloride 101, more recent values have beenin normal range, will continue judiciously hydrate and repeat CMP in AM. #4. Chronic Kidney Disease Stage II per GFR trending: Admission BUN/Cr 14/0.89,GFR 91, baseline renal function primarily 0.9-1.2, repeat BMP in AM. #5. Chronic microcytic anemia: Admission hemoglobin 9.5, MCV 73.2, baseline hemoglobin primarily 10-11 although most recently 03/15/2025 hemoglobin 10, continue to trend and if any concerns arise about further decreasing levels may need to hold NOAC and obtain guaiac. #6. Hypertension: Continue home regimen including Coreg, hydralazine, amlodipine with hold parameters as needed, PRN hydralazine. #7. Hyperlipidemia: We will continue patient on statin therapy. #8. CAD: Status post previous PCI, will continue patient apixaban cautiously, statin, Coreg, not on XIN inhibitor/ARB. #9. History of VTE: Patient with history of previous DVT, PE, continue patient chronic Eliquis regimen cautiously. #10. History of metastatic renal cell carcinoma, history of brain tumor unclearif this was metastatic or not with associated previous seizure history: Patient with history of metastatic renal cell carcinoma status post left nephrectomy with metastatic disease to the lung status post also lobectomy, chart history ofquestionable some type of brain tumor but uncertain if this was metastatic and unclear previous interventions, currently per record maintained outpatient on Keytruda, encourage continued outpatient follow-up with oncology as previously arranged. Mag and Phos requested. #11. GERD with history of duodenal ulcer disease status post previous GI bleed:We will continue patient on PPI, currently placed on IV version until oral intake improved especially given intractable nausea and emesis #12. Former tobacco use: Encourage continued tobacco cessation. #13. DVT prophylaxis: Continue patient on apixaban regimen. #14. CODE status: Patient does not have healthcare power of prosecuting attorney or living will in place but he notes his who is present would be his medical decision- maker if necessary. Discussed CODE status at length including difference between FULL code, DNR-CCA and DNR-CC status. Following discussions about the differences in these status, requested DNR-CCA, no intubation. Charges/Coding Visit Charges Inpatient E&M: 51153 Init Hosp L3 03/21/25 4320 <Electronically signed by Sayra Fuentes MD> Cosigner Signature (if applicable): CC: Dr. Sayra Fuentes MD; Dr. Jacob Jennings DO~ Signed [facility] Work Phone: [phone] Discharge summary Author [facility] Note Date/Time March 21, 2025 5:20p m [facility] Medical Records Department [address] [place] [address] Emergency Department Summary 03/21/25 MR#: [id number] Acct: [id number] Name: KENN ARSHAD Rep #:[id number] : 1955 69 From: Khalif Garza PCP: Dr. Jacob Jennings DO Status:AD M IN Location: [facility] [id number] HPI HPI - GI History of Present Illness Chief Complaint: Nausea/Vomiting Informant: patient Abdominal Pain/Flank Pain Worsened by: Food Relieved by: Nothing Nausea/Vomiting/Emesis GI Symptom: Positive for Nausea and Vomiting Onset: Weeks (3) Diarrhea/Melena/Hematochezia GI Symptom: Negative for Diarrhea, Melena or Hematochezia Associated Symptoms Associated Symptoms: Negative for Dysuria, Frequency or Hematuria Narrative Narrative: Patient presents with nausea and vomiting that has been constant for the past 3 weeks. Patient states that anytime he tries to eat anything he throws it back up. Patient states he does not feel like he gets anything into his stomach. Patient states he starts to vomit whenever he tries to swallow. Patient denies any hematemesis or coffee-ground emesis. Patient states it is worse whenever hetries to eat. Patient states nothing seems to help with it. Patient denies anyabdominal pain. Patient denies any chest pain or shortness of breath. Patient denies any diarrhea, melena, or hematochezia. Patient denies any urinary complaints. [facility] Medical History Acute infective gastroenteritis COPD exacerbation History of steroid therapy Low iron Seizures Shortness of breath on exertion History of pain when walking History of edema History of echocardiogram Cardiology follow-up encounter Cervical spinal cord injury Cervical stenosis of spine Numbness in right leg RUE numbness Diarrhea Hypokalemia Duodenal ulcer Anemia Diabetes mellitus, type 2 Hyperglycemia Hyponatremia Thrombocytopenia Pulmonary emboli COPD (chronic obstructive pulmonary disease) Imbalance Brain metastasis Pneumonia Sinus congestion Hx of radiation therapy Brain metastasis Frequent headaches Epistaxis Contact with or suspected exposure to other viral communicable disease Iron deficiency anemia due to chronic blood loss Encounter for immunotherapy Encounter for immunotherapy COVID-19 Nonrheumatic aortic (valve) stenosis with insufficiency Elevated troponin (05/15/21) Encephalopathy (05/15/21) Seizure (05/15/21) Metastatic renal cell carcinoma to lung Dyspnea Metastasis to adrenal gland Port-A-Cath in place Atherosclerotic heart disease of [place] coronary artery without angina pectoris Hyperlipidemia Wears glasses Wears dentures Gastric reflux Former smoker History of primary malignant neoplasm of left kidney 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 Skin cancer Abnormal colonoscopy Essential (primary) hypertension COPD (chronic obstructive pulmonary disease) Adenocarcinoma of right lung Home Medications ?Medication ?Instructions ?Recorded ?Last Taken ?Type rosuvastatin 40 mg tablet (Crestor) 40 mg PO QHS YING STEROL 08/18/18 01/09/25 20:00 History 40 mg carvedilol 25 mg tablet 25 mg PO BID blood pressure 04/30/21 03/20/25 History albuterol sulfate 90 mcg/actuation 1 puff inhalation Q 6H PRN SOB 05/31/21 06/12/21 History aerosol inhaler hydralazine 50 mg tablet 50 mg PO BID blood pressure 05/31/21 03/20/25 History apixaban 5 mg tablet (Eliquis) 2.5 mg (1/2 x 5 mg) PO BID #60 tabs 07/20/23 03/20/25 Rx amlodipine 10 mg tablet 10 mg PO DAILY #90 tabs 08/0903/20/25 Rx ipratropium 0.5 mg-albuterol 3 mg 3 ml inhalation Q4H PRN shortness 09/07/23 Unknown Rx (2.5 mg base)/3 mL nebulization of breath or wheezing #180 mL soln omeprazole 20 mg capsule,delayed 20 mg PO DAILY acid r educer 06/09/24 03/20/25 History release pembrolizumab 25 mg/mL intravenous 200 mg IV Q21D 04/0203/15/25 History solution (Keytruda) Allergy/AdvReac Type Severity Reaction Status Date / Time No Known Allergies Allergy Verified 03/21/25 09:45 Family History Sister Diabetes CAD (coronary artery disease) Mother CVA (cerebral vascular accident) CAD (coronary artery disease) Lung cancer Father CAD (coronary artery disease) Brother CAD (coronary artery disease) Surgical History H/O cervical discectomy History of cataract surgery History of lobectomy of lung History of nephrectomy, left History of coronary angioplasty (01/05/04) History of coronary artery stent placement (07/17/03) Social History household members: spouse Smoking Status: Former smoker Tobacco: How many years used: 40 second hand exposure: No alcohol intake: current alcohol intake frequency: a few times a month Alcohol type: beer substance use type: does not use seatbelt use: always do you feel safe at home: Yes ROS ROS ED Constitutional Constitutional ED: Denies chills or fever(s) Eyes Eyes: Denies blurry vision or change in vision ENT ENT ED: Reports sore throat; Denies rhinorrhea Cardiovascular Cardiovascular: Denies chest pain or palpitations Respiratory/Chest Respiratory/Chest: Denies cough or dyspnea Gastrointestinal Gastrointestinal: Reports nausea and vomiting; Denies abdominal pain, diarrhea or melena Genitourinary Genitourinary ED: Denies dysuria or hematuria Musculoskeletal Musculoskeletal: Denies back pain or neck pain Integumentary Denies abscess or rash Neurologic Neurologic: Denies headache(s) or weakness Allergic/Immunologic Allergic/Immunologic ED: Denies mouth swelling or urticaria EXAM Physical Exam Const Vital Signs: 03/21/25 09:45 03/21/25 09:47 03/21/25 11:45 Temperature 97.7 F L 97.7 F L Temperature Source Temporal Oral Pulse Rate 87 83 Respiratory Rate 24 H 20 H Blood Pressure 112/82 H 104/88 H 109/59 L Blood Pressure Mean 92 93 75 Pulse Ox 95 96 Oxygen Delivery Method Nasal Cannula Nasal Cannula Oxygen Flow Rate (L/min) 2 2 03/21/25 13:45 03/21/25 15:00 03/21/25 16:22 Temperature 98.2 F 98.2 F Temperature Source Oral Pulse Rate 83 85 Respiratory Rate 27 H 24 H Blood Pressure 108/57 L 100/55 L 98/44 L Blood Pressure Mean 74 70 62 Pulse Ox 92 94 92 Oxygen Delivery Method Nasal Cannula Room Air Oxygen Flow Rate (L/min) 03/21/25 16:30 Temperature Temperature Source Pulse Rate 78 Respiratory Rate 18 Blood Pressure Blood Pressure Mean Pulse Ox 93 Oxygen Delivery Method Nasal Cannula Oxygen Flow Rate (L/min) 2 Positive well nourished and well developed General Appearance ED: well developed and NAD HEENT Reports moist mucous membranes Neck supple and no JVD Resp normal respiratory effort Auscultation: wheezes expiratory wheezes and throughout Cardio regular rate and regular rhythm GI non-tender and non-distended Auscultation: normoactive bowel sounds Palpation: soft Neuro CN's II-XII intact bilaterally, moves all extremities and no sensory deficits noted Sensorium / Orientation: alert Motor Exam: strength 5/5 throughout Psych mental status grossly normal MDM MDM MDM Narrative Medical decision making narrative: Differential diagnosis includes bowel obstruction, perforation, dehydration, electrolyte abnormality, metastatic cancer, pancreatitis, and COPD exacerbation. CBC will be obtained to assess for leukocytosis or anemia. Comprehensive metabolic profile will be obtained to assess for hepatic function, renal function, and electrolyte abnormality. Lipase will be obtained to assess for pancreatitis. CT scan of the chest abdomen and pelvis will be obtained to assess for bowel obstruction, perforation, metastatic cancer, and pneumonia. History & Record Review Additional record(s) reviewed:: Prior outpatient record, Prior ED visit and Prior labs Lab Data Attestation: I reviewed the patient's lab results. Lab results narrative: CBC was reviewed. White blood cell count was slightly low at 3.9. Hemoglobin was 9.5 and hematocrit was 29.5. Platelets were normal. Comprehensive metabolic profile was reviewed. Sodium was slightly low at 132. CO2 was slightly low at 15.6. Anion gap was normal. BUN and creatinine were normal. Lipase was reviewed and was normal at 23. Labs: Laboratory Results - last 24 hr 03/21/25 03/21/25 03/21/25 10:23 10:23 10:53 WBC Cancelled 3.9 L Corrected WBC Cancelled RBC Cancelled 4.03 L Hgb Cancelled 9.5 L Hct Cancelled 29.5 L MCV Cancelled 73.2 L MCH Cancelled 23.6 L MCHC Cancelled 32.2 RDW Std Deviation Cancelled 47.2 H RDW Coeff of Kailey Cancelled 17.7 H Plt Count Cancelled 208 MPV Cancelled 8.8 Immature Gran % (Auto) Cancelled 1.300 H Neut % (Auto) Cancelled 57.3 Lymph % (Auto) Cancelled 19.8 [place] % (Auto) Cancelled 14.1 H Eos % (Auto) Cancelled 6.7 H Baso % (Auto) Cancelled 0.8 Absolute Neuts (auto) Cancelled 2.2 Absolute Lymphs (auto) Cancelled 0.77 L Total Counted Cancelled Neutrophils % (Manual) Cancelled Band Neutrophils % Cancelled Lymphocytes % (Manual) Cancelled Monocytes % (Manual) Cancelled Eosinophils % (Manual) Cancelled Basophils % (Manual) Cancelled Metamyelocytes % Cancelled Myelocytes % Cancelled Promyelocytes % Cancelled Blast Cells % Cancelled Plasma Cell % (Manual) Cancelled Other Cells % Cancelled Nucleated RBC % Cancelled 0 Nucleated RBCs/100 WBC Cancelled Differential Comment Cancelled Diff Path Review Cancelled Hypersegmented Neuts Cancelled Atypical Lymphocytes Cancelled Reactive Lymphocytes Cancelled Smudge Cells Cancelled Toxic Granulation Cancelled Toxic Vacuolation Cancelled Dohle Bodies Cancelled Jessica Rods Cancelled Platelet Estimate Cancelled Plt Morphology Comment Cancelled RBC Morphology Cancelled Cancelled Polychromasia Cancelled Hypochromasia Cancelled Basophilic Stippling Cancelled Anisocytosis Cancelled Microcytosis Cancelled Macrocytosis Cancelled Spherocytes Cancelled Sickle Cells Cancelled Target Cells Cancelled Tear Drop Cells Cancelled Ovalocytes Cancelled Stomatocytes Cancelled Foster-Niles Bodies Cancelled Kezia Cells Cancelled Bite Cells Cancelled Crenated Cell Cancelled Acanthocytes (Spur) Cancelled Rouleaux Cancelled Schistocytes Cancelled Sodium 132 L Potassium 3.6 Chloride 101 Carbon Dioxide 15.6 L Anion Gap 15 BUN 14 Creatinine 0.89 Estim Creat Clear Calc 74.15 Est GFR (MDRD) Non-Af 91 BUN/Creatinine Ratio 15.5 Glucose 87 Calcium 8.3 Total Bilirubin 0.43 AST 17 ALT 6 Alkaline Phosphatase 62 Total Protein 4.9 L Albumin 2.9 L Globulin 2.0 L Albumin/Globulin Ratio 1.5 Lipase 23 Radiography Diagnostic Testing: Clinical Impression(s) from Imaging Studies Chest/Abdomen/Pelvis CT 03/21/25 10:03 IMPRESSION: New right pleural effusion with infiltration in both lungs worse on the right side as described. Status post left nephrectomy. Persistent masses in the right kidney. Reading Location: [facility] CT scan of the chest, abdomen, and pelvis was obtained. There is a new right pleural effusion with infiltrates in both lungs, worse on the right. There are persistent masses in the right kidney. All this was interpreted by the radiologist and was also independently reviewed by myself. Treatment and Re-Evaluation :: Patient was given IV fluids and Zofran. Patient was able to drink an Ensure shake. Patient ambulated here in the emergency department and his pulse oximeter dropped to 82% even on oxygen. Patient was started on Rocephin and Zithromax. Because of the desaturation, I recommended admission to the hospital. Case was discussed with the hospitalist. She will admit the patient to her service. Patient understood and was agreeable with the plan. All questions were answered. Discharge Plan Dx/Rx/DC Orders Clinical Impression: Pneumonia, Cancer of right kidney, Hypoxia, Dysphagia Disposition Disposition: Acute Care Hospital [facility] What to do if you have Problems For any increased pain, shortness of breath, bleeding, nausea or vomiting, chestpain, or any unexpected problems, contact your Primary Care Provider. Call [facility] ([phone]) or report to the closest Emergency Room. Call 911 if necessary. 03/21/25 1720 <Electronically signed by Khalif Horan DO> Cosigner Signature (if applicable): CC: Dr. Jacob Jennings DO ~ Signed [facility] Work Phone: [phone] 977-794805-13-2025 Radiology Diagnostic study [facility]05-13-2025 Discharge summary Author Khalif Horan [facility] Note Date/Time March 21, 2025 5:20p m [facility] Medical Records Department [address] [place] [address] Emergency Department Summary 03/21/25 MR#: [id number] Acct: [id number] Name: KENN ARSHAD Rep #:[id number] : 1955 69 From: Khalif Garza PCP: Dr. Jacob Jennings, DO Status:AD M IN Location: [facility] [id number] HPI HPI - GI History of Present Illness Chief Complaint: Nausea/Vomiting Informant: patient Abdominal Pain/Flank Pain Worsened by: Food Relieved by: Nothing Nausea/Vomiting/Emesis GI Symptom: Positive for Nausea and Vomiting Onset: Weeks (3) Diarrhea/Melena/Hematochezia GI Symptom: Negative for Diarrhea, Melena or Hematochezia Associated Symptoms Associated Symptoms: Negative for Dysuria, Frequency or Hematuria Narrative Narrative: Patient presents with nausea and vomiting that has been constant for the past 3 weeks. Patient states that anytime he tries to eat anything he throws it back up. Patient states he does not feel like he gets anything into his stomach. Patient states he starts to vomit whenever he tries to swallow. Patient denies any hematemesis or coffee-ground emesis. Patient states it is worse whenever hetries to eat. Patient states nothing seems to help with it. Patient denies anyabdominal pain. Patient denies any chest pain or shortness of breath. Patient denies any diarrhea, melena, or hematochezia. Patient denies any urinary complaints. [facility] Medical History Acute infective gastroenteritis COPD exacerbation History of steroid therapy Low iron Seizures Shortness of breath on exertion History of pain when walking History of edema History of echocardiogram Cardiology follow-up encounter Cervical spinal cord injury Cervical stenosis of spine Numbness in right leg RUE numbness Diarrhea Hypokalemia Duodenal ulcer Anemia Diabetes mellitus, type 2 Hyperglycemia Hyponatremia Thrombocytopenia Pulmonary emboli COPD (chronic obstructive pulmonary disease) Imbalance Brain metastasis Pneumonia Sinus congestion Hx of radiation therapy Brain metastasis Frequent headaches Epistaxis Contact with or suspected exposure to other viral communicable disease Iron deficiency anemia due to chronic blood loss Encounter for immunotherapy Encounter for immunotherapy COVID-19 Nonrheumatic aortic (valve) stenosis with insufficiency Elevated troponin (05/15/21) Encephalopathy (05/15/21) Seizure (05/15/21) Metastatic renal cell carcinoma to lung Dyspnea Metastasis to adrenal gland Port-A-Cath in place Atherosclerotic heart disease of [place] coronary artery without angina pectoris Hyperlipidemia Wears glasses Wears dentures Gastric reflux Former smoker History of primary malignant neoplasm of left kidney 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 Skin cancer Abnormal colonoscopy Essential (primary) hypertension COPD (chronic obstructive pulmonary disease) Adenocarcinoma of right lung Home Medications ?Medication ?Instructions ?Recorded ?Last Taken ?Type rosuvastatin 40 mg tablet (Crestor) 40 mg PO QHS YING STEROL 08/18/18 01/09/25 20:00 History 40 mg carvedilol 25 mg tablet 25 mg PO BID blood pressure 04/30/21 03/20/25 History albuterol sulfate 90 mcg/actuation 1 puff inhalation Q 6H PRN SOB 05/31/21 06/12/21 History aerosol inhaler hydralazine 50 mg tablet 50 mg PO BID blood pressure 05/31/21 03/20/25 History apixaban 5 mg tablet (Eliquis) 2.5 mg (1/2 x 5 mg) PO BID #60 tabs 07/20/23 03/20/25 Rx amlodipine 10 mg tablet 10 mg PO DAILY #90 tabs 08/0903/20/25 Rx ipratropium 0.5 mg-albuterol 3 mg 3 ml inhalation Q4H PRN shortness 09/07/23 Unknown Rx (2.5 mg base)/3 mL nebulization of breath or wheezing #180 mL soln omeprazole 20 mg capsule,delayed 20 mg PO DAILY acid r educer 06/09/24 03/20/25 History release pembrolizumab 25 mg/mL intravenous 200 mg IV Q21D 04/0203/15/25 History solution (Keytruda) Allergy/AdvReac Type Severity Reaction Status Date / Time No Known Allergies Allergy Verified 03/21/25 09:45 Family History Sister Diabetes CAD (coronary artery disease) Mother CVA (cerebral vascular accident) CAD (coronary artery disease) Lung cancer Father CAD (coronary artery disease) Brother CAD (coronary artery disease) Surgical History H/O cervical discectomy History of cataract surgery History of lobectomy of lung History of nephrectomy, left History of coronary angioplasty (01/05/04) History of coronary artery stent placement (07/17/03) Social History household members: spouse Smoking Status: Former smoker Tobacco: How many years used: 40 second hand exposure: No alcohol intake: current alcohol intake frequency: a few times a month Alcohol type: beer substance use type: does not use seatbelt use: always do you feel safe at home: Yes ROS ROS ED Constitutional Constitutional ED: Denies chills or fever(s) Eyes Eyes: Denies blurry vision or change in vision ENT ENT ED: Reports sore throat; Denies rhinorrhea Cardiovascular Cardiovascular: Denies chest pain or palpitations Respiratory/Chest Respiratory/Chest: Denies cough or dyspnea Gastrointestinal Gastrointestinal: Reports nausea and vomiting; Denies abdominal pain, diarrhea or melena Genitourinary Genitourinary ED: Denies dysuria or hematuria Musculoskeletal Musculoskeletal: Denies back pain or neck pain Integumentary Denies abscess or rash Neurologic Neurologic: Denies headache(s) or weakness Allergic/Immunologic Allergic/Immunologic ED: Denies mouth swelling or urticaria EXAM Physical Exam Const Vital Signs: 03/21/25 09:45 03/21/25 09:47 03/21/25 11:45 Temperature 97.7 F L 97.7 F L Temperature Source Temporal Oral Pulse Rate 87 83 Respiratory Rate 24 H 20 H Blood Pressure 112/82 H 104/88 H 109/59 L Blood Pressure Mean 92 93 75 Pulse Ox 95 96 Oxygen Delivery Method Nasal Cannula Nasal Cannula Oxygen Flow Rate (L/min) 2 2 03/21/25 13:45 03/21/25 15:00 03/21/25 16:22 Temperature 98.2 F 98.2 F Temperature Source Oral Pulse Rate 83 85 Respiratory Rate 27 H 24 H Blood Pressure 108/57 L 100/55 L 98/44 L Blood Pressure Mean 74 70 62 Pulse Ox 92 94 92 Oxygen Delivery Method Nasal Cannula Room Air Oxygen Flow Rate (L/min) 03/21/25 16:30 Temperature Temperature Source Pulse Rate 78 Respiratory Rate 18 Blood Pressure Blood Pressure Mean Pulse Ox 93 Oxygen Delivery Method Nasal Cannula Oxygen Flow Rate (L/min) 2 Positive well nourished and well developed General Appearance ED: well developed and NAD HEENT Reports moist mucous membranes Neck supple and no JVD Resp normal respiratory effort Auscultation: wheezes expiratory wheezes and throughout Cardio regular rate and regular rhythm GI non-tender and non-distended Auscultation: normoactive bowel sounds Palpation: soft Neuro CN's II-XII intact bilaterally, moves all extremities and no sensory deficits noted Sensorium / Orientation: alert Motor Exam: strength 5/5 throughout Psych mental status grossly normal MDM MDM MDM Narrative Medical decision making narrative: Differential diagnosis includes bowel obstruction, perforation, dehydration, electrolyte abnormality, metastatic cancer, pancreatitis, and COPD exacerbation. CBC will be obtained to assess for leukocytosis or anemia. Comprehensive metabolic profile will be obtained to assess for hepatic function, renal function, and electrolyte abnormality. Lipase will be obtained to assess for pancreatitis. CT scan of the chest abdomen and pelvis will be obtained to assess for bowel obstruction, perforation, metastatic cancer, and pneumonia. History & Record Review Additional record(s) reviewed:: Prior outpatient record, Prior ED visit and Prior labs Lab Data Attestation: I reviewed the patient's lab results. Lab results narrative: CBC was reviewed. White blood cell count was slightly low at 3.9. Hemoglobin was 9.5 and hematocrit was 29.5. Platelets were normal. Comprehensive metabolic profile was reviewed. Sodium was slightly low at 132. CO2 was slightly low at 15.6. Anion gap was normal. BUN and creatinine were normal. Lipase was reviewed and was normal at 23. Labs: Laboratory Results - last 24 hr 03/21/25 03/21/25 03/21/25 10:23 10:23 10:53 WBC Cancelled 3.9 L Corrected WBC Cancelled RBC Cancelled 4.03 L Hgb Cancelled 9.5 L Hct Cancelled 29.5 L MCV Cancelled 73.2 L MCH Cancelled 23.6 L MCHC Cancelled 32.2 RDW Std Deviation Cancelled 47.2 H RDW Coeff of Kailey Cancelled 17.7 H Plt Count Cancelled 208 MPV Cancelled 8.8 Immature Gran % (Auto) Cancelled 1.300 H Neut % (Auto) Cancelled 57.3 Lymph % (Auto) Cancelled 19.8 [place] % (Auto) Cancelled 14.1 H Eos % (Auto) Cancelled 6.7 H Baso % (Auto) Cancelled 0.8 Absolute Neuts (auto) Cancelled 2.2 Absolute Lymphs (auto) Cancelled 0.77 L Total Counted Cancelled Neutrophils % (Manual) Cancelled Band Neutrophils % Cancelled Lymphocytes % (Manual) Cancelled Monocytes % (Manual) Cancelled Eosinophils % (Manual) Cancelled Basophils % (Manual) Cancelled Metamyelocytes % Cancelled Myelocytes % Cancelled Promyelocytes % Cancelled Blast Cells % Cancelled Plasma Cell % (Manual) Cancelled Other Cells % Cancelled Nucleated RBC % Cancelled 0 Nucleated RBCs/100 WBC Cancelled Differential Comment Cancelled Diff Path Review Cancelled Hypersegmented Neuts Cancelled Atypical Lymphocytes Cancelled Reactive Lymphocytes Cancelled Smudge Cells Cancelled Toxic Granulation Cancelled Toxic Vacuolation Cancelled Dohle Bodies Cancelled Jessica Rods Cancelled Platelet Estimate Cancelled Plt Morphology Comment Cancelled RBC Morphology Cancelled Cancelled Polychromasia Cancelled Hypochromasia Cancelled Basophilic Stippling Cancelled Anisocytosis Cancelled Microcytosis Cancelled Macrocytosis Cancelled Spherocytes Cancelled Sickle Cells Cancelled Target Cells Cancelled Tear Drop Cells Cancelled Ovalocytes Cancelled Stomatocytes Cancelled Foster-Niles Bodies Cancelled Frazer Cells Cancelled Bite Cells Cancelled Crenated Cell Cancelled Acanthocytes (Spur) Cancelled Rouleaux Cancelled Schistocytes Cancelled Sodium 132 L Potassium 3.6 Chloride 101 Carbon Dioxide 15.6 L Anion Gap 15 BUN 14 Creatinine 0.89 Estim Creat Clear Calc 74.15 Est GFR (MDRD) Non-Af 91 BUN/Creatinine Ratio 15.5 Glucose 87 Calcium 8.3 Total Bilirubin 0.43 AST 17 ALT 6 Alkaline Phosphatase 62 Total Protein 4.9 L Albumin 2.9 L Globulin 2.0 L Albumin/Globulin Ratio 1.5 Lipase 23 Radiography Diagnostic Testing: Clinical Impression(s) from Imaging Studies Chest/Abdomen/Pelvis CT 03/21/25 10:03 IMPRESSION: New right pleural effusion with infiltration in both lungs worse on the right side as described. Status post left nephrectomy. Persistent masses in the right kidney. Reading Location: [facility] CT scan of the chest, abdomen, and pelvis was obtained. There is a new right pleural effusion with infiltrates in both lungs, worse on the right. There are persistent masses in the right kidney. All this was interpreted by the radiologist and was also independently reviewed by myself. Treatment and Re-Evaluation :: Patient was given IV fluids and Zofran. Patient was able to drink an Ensure shake. Patient ambulated here in the emergency department and his pulse oximeter dropped to 82% even on oxygen. Patient was started on Rocephin and Zithromax. Because of the desaturation, I recommended admission to the hospital. Case was discussed with the hospitalist. She will admit the patient to her service. Patient understood and was agreeable with the plan. All questions were answered. Discharge Plan Dx/Rx/DC Orders Clinical Impression: Pneumonia, Cancer of right kidney, Hypoxia, Dysphagia Disposition Disposition: [facility] What to do if you have Problems For any increased pain, shortness of breath, bleeding, nausea or vomiting, chestpain, or any unexpected problems, contact your Primary Care Provider. Call [facility] ([phone]) or report to the closest Emergency Room. Call 911 if necessary. 03/21/25 1720 <Electronically signed by Khalif Horan DO> Cosigner Signature (if applicable): CC: Dr. 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 March 15, 2025 9:31am 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 March 15, 2025 9:31am 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 March 15, 2025 9: 31am Dysphagia acute March 21, 2025 4:55pm Pneumonia acute March 21, 2025 4:55pm Cancer of right kidney chronic Ma y 2024 4:55pm Hypoxia resolved March 21, 2025 4:55pm Nausea & vomiting resolved March 4:55pm Brain metastasis chronic March 10:30am Cancer of lower lobe of righ t lung chronic March 29, 2025 1 0:30am Cancer of right kidney chronic Ma y 2024 10:30am History of primary malignant neoplasm of left kidney chronic March 10:30am Iron deficiency anemia due t o chronic blood loss chronic March 29 10:30am 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 March 29 10:30am 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 March 29, 2025 10:30am 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 March 29, 2025 1 0:30am Anemia acute March 30, 2025 10:02am Brain metastasis chronic April 12:29pm Cancer of lower lobe of righ t lung chronic April 12, 2025 1 2:29pm Cancer of right kidney chronic Ju 2024 12:29pm History of primary malignant neoplasm of left kidney chronic April 12:29pm Iron deficiency anemia due t o chronic blood loss chronic April 12 12:29pm 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 April 12 12:29pm 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 April 12, 2025 12:29pm 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 April 12, 2025 1 2:29pm Brain metastasis chronic April 9:32am Cancer of lower lobe of righ t lung chronic May 02, 2025 9:32am Cancer of right kidney chronic Ju ne 2024 9:32am History of primary malignant neoplasm of left kidney chronic April 9:32am Iron deficiency anemia due t o chronic blood loss chronic May 02 9:32am 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 May 02 9:32am 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 May 02, 2025 9:32am 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 May 02, 2025 9:32am Brain metastasis chronic May 9:38am Cancer of lower lobe of righ t lung chronic May 24, 2025 9:38am Cancer of right kidney chronic Ju ly 2024 9:38am History of primary malignant neoplasm of left kidney chronic May 9:38am Iron deficiency anemia due t o chronic blood loss chronic May 24 9:38am 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 May 24 9:38am 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 May 24, 2025 9:38am 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 May 24, 2025 9:38am COPD (chronic obstructive pulmonary disease) chronic June 09 10:30am 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 June 09 10:30am Encounter for immunotherapy acute June 15, 2025 10:28am Brain metastasis chronic June 152024 10:28am Cancer of lower lobe of righ t lung chronic June 15, 2025 10:28am Cancer of right kidney chronic 2024 10:28am History of primary malignant neoplasm of left kidney chronic June 152024 10:28am Iron deficiency anemia due t o chronic blood loss June 15 10:28am 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 June 15 10:28am 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 June 15, 2025 10:28am Regional lymph node metastas is present June 15, 2025 10:28am [employer] Work Phone: 1(748) 159-255505-07-2025 Evaluation note* Diagnosis Onset Date Resolution Status Admit Date Brain metastasis chronic March 15, 2025 9:31am Cancer of lower lobe of righ t lung chronic March 15, 2025 9: 31am Cancer of right kidney chronic 2024 9:31am History of primary malignant neoplasm of left kidney chronic March 15, 2025 9:31am Iron deficiency anemia due t o chronic blood loss chronic March 15, 2025 9:31am 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 March 15, 2025 9:31am 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 March 15, 2025 9:31am 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 March 15, 2025 9: 31am Dysphagia acute March 21, 2025 4:55pm Pneumonia acute March 21, 2025 4:55pm Cancer of right kidney chronic Ma y 2024 4:55pm Hypoxia resolved March 21, 2025 4:55pm Nausea & vomiting resolved March 4:55pm Brain metastasis chronic March 10:30am Cancer of lower lobe of righ t lung chronic March 29, 2025 1 0:30am Cancer of right kidney chronic Ma y 2024 10:30am History of primary malignant neoplasm of left kidney chronic March 10:30am Iron deficiency anemia due t o chronic blood loss chronic March 29 10:30am 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 March 29 10:30am 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 March 29, 2025 10:30am 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 March 29, 2025 1 0:30am Anemia acute March 30, 2025 10:02am Brain metastasis chronic April 12:29pm Cancer of lower lobe of righ t lung chronic April 12, 2025 1 2:29pm Cancer of right kidney chronic Ju 2024 12:29pm History of primary malignant neoplasm of left kidney chronic April 12:29pm Iron deficiency anemia due t o chronic blood loss chronic April 12 12:29pm 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 April 12 12:29pm 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 April 12, 2025 12:29pm 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 April 12, 2025 1 2:29pm Brain metastasis chronic April 9:32am Cancer of lower lobe of righ t lung chronic May 02, 2025 9:32am Cancer of right kidney chronic Ju ne 2024 9:32am History of primary malignant neoplasm of left kidney chronic April 9:32am Iron deficiency anemia due t o chronic blood loss chronic May 02 9:32am 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 May 02 9:32am 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 May 02, 2025 9:32am 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 May 02, 2025 9:32am Brain metastasis chronic May 9:38am Cancer of lower lobe of righ t lung chronic May 24, 2025 9:38am Cancer of right kidney chronic Ju ly 2024 9:38am History of primary malignant neoplasm of left kidney chronic May 9:38am Iron deficiency anemia due t o chronic blood loss chronic May 24 9:38am 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 May 24 9:38am 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 May 24, 2025 9:38am 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 May 24, 2025 9:38am COPD (chronic obstructive pulmonary disease) chronic June 09 10:30am 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 June 09 10:30am Encounter for immunotherapy acute June 15, 2025 10:28am Brain metastasis chronic June 152024 10:28am Cancer of lower lobe of righ t lung chronic June 15, 2025 10:28am Cancer of right kidney chronic 2024 10:28am History of primary malignant neoplasm of left kidney chronic June 152024 10:28am Iron deficiency anemia due t o chronic blood loss chronic June 15 10:28am 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 June 15 10:28am 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 June 15, 2025 10:28am 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 June 15, 2025 10:28am Anemia acute July 04 10:20am Brain metastasis chronic June 102024 12:29pm Cancer of lower lobe of righ t lung chronic July 05 12:29pm Cancer of right kidney chronic Au harshal 2024 12:29pm History of primary malignant neoplasm of left kidney chronic June 102024 12:29pm Iron deficiency anemia due t o chronic blood loss chronic July 05, 2025 12:29pm 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 July 05, 2025 12:29pm 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 July 05, 2025 12:29pm 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 July 05 12:29pm [employer] Work Phone: [phone]) 575-700504-25-2025 Telephone encounter Note* Telephone Encounter - Sierra Hernandez LPN - 03/03/2025 7:13 AM EDT Recent Visits Date Type Provider Dept 02/21/25 Office Visit Jacob Jennings, DO [facility] 12/30/24 Office Visit Jacob Jennings, DO [facility] 12/06/24 Office Visit Jacob Jennings, DO [facility] 10/20/24 Office Visit Jacob Jennings DO [facility] 09/19/24 Office Visit Jacob Jennings DO [facility] 04/19/24 Office Visit Jacob Jennings, DO [facility] Showing recent visits within past 365 days and meeting all other requirements Future Appointments Date Type Provider Dept 04/18/25 Appointment Jacob JenningsDO [facility] Showing future appointments within next 90 days and meeting all other requirements Requested Prescriptions Pending Prescriptions Disp Refills Eliquis 2.5 MG tablet [Pharmacy Med Name: ELIQUIS 2.5 MG TABLET] 90 tablet 0 Sig: TAKE 1 TABLET BY MOUTH EVERY DAY Provider: Jacob Jennings DO Verified pharmacy: yes Verified day(s) supplied: yes Verified refill(s) needed (previous prescription showing no refills in chart): Yes Have you received any controlled medications from any other provider? N/A Overdue for visit: No If yes - patient scheduled? Yes Most recent labs completed in chart? N/A [id number] Miscellaneous Notes* Telephone Encounter - Sierra Hernandez LPN - 03/03/2025 7:13 AM EDT Recent Visits Date Type Provider Dept 02/21/25 Office Visit Jaocb Robin Dick, DO [facility] 12/30/24 Office Visit Jacob Robin Dick, DO [facility] 12/06/24 Office Visit Jacob Robin Piperpiper, DO [facility] 10/20/24 Office Visit Jacob Robin Dick, DO [facility] 09/19/24 Office Visit Jacob Robin Dick, DO [facility] 04/19/24 Office Visit Jacob Willsonharishpiper, DO [facility] Showing recent visits within past 365 days and meeting all other requirements Future Appointments Date Type Provider Dept 04/18/25 Appointment Jacob JenningsDO [facility] Showing future appointments within next 90 days and meeting all other requirements Requested Prescriptions Pending Prescriptions Disp Refills Eliquis 2.5 MG tablet [Pharmacy Med Name: ELIQUIS 2.5 MG TABLET] 90 tablet 0 Sig: TAKE 1 TABLET BY MOUTH EVERY DAY Provider: Jacob Jennings DO Verified pharmacy: yes Verified day(s) supplied: yes Verified refill(s) needed (previous prescription showing no refills in chart): Yes Have you received any controlled medications from any other provider? N/A Overdue for visit: No If yes - patient scheduled? Yes Most recent labs completed in chart? N/A None documented in this [facility]04-15-2025 History of Present illness Narrative* Jacob Jennings DO - 02/21/2025 2:30 PM EDT Images from the original note were not included. [facility] - [address] [facility] [id number] Visit type: Established Patient Reason for Visit: Hospital Follow-up Assessment / Plan: Kenn was seen today for hospital follow-up. Diagnoses and all orders for this visit: Chronic bronchitis, unspecified chronic bronchitis type (HCC) (Primary) Comments: Recurrent but improving, restart DuoNeb aerosols 3 times daily Adenosquamous carcinoma of lung, left (HCC) Chemotherapy induced diarrhea Comments: Resolved, follow-up with oncology Other orders - ipratropium-albuterol (Duo-Neb) 0.5-2.5 mg/3 mL nebulizer solution; Take 3 mL by nebulization three times daily. Subjective: Patient ID: Kenn Arshad is a 69 y.o. male. HPI patient recently diagnosed with Keytruda related diarrhea after sigmoidoscopy a few weeks ago and now presenting with recurrent cough productive of white phlegm over many weeks. He is on weaning dose of prednisone due to the colitis. Not taking his DuoNeb aerosol treatments routinely. Had a low-grade fever and bodyaches after getting influenza A and had mixed bacterial infection in the hospital. CT showed multiple changes of atypical infection and/or metastatic disease perhaps dueto his non-small cell of the lung or renal cell carcinoma. Of note he had been on Keytruda for almost 3 years. Review of Systems appetite is improved. No recurrent fever for few days. Denies change in shortnessof breath but cough is persistent. No pleurisy. No peculiar body aches. Has a better appetite. No emesis or diarrhea. No abdominal pain. Will be seeing his oncologist in the future to discuss repeat CT of the chest and perhaps restarting Keytruda. Does not see his forensic economist routinely but has seen Dr. Malcolm in the past. Saw Dr. Chambers's honey blender a few days ago for follow-up after his sigmoidoscopy. No new recommendations No Known Allergies Current Outpatient Medications: amLODIPine (Norvasc) 10 MG tablet, Take 1 tablet (10 mg) by mouth daily for 180 doses., Disp: 90 tablet, Rfl: 1 apixaban (Eliquis) 2.5 MG tablet, One q day, Disp: 90 tablet, Rfl: 0 carvedilol (Coreg) 25 MG tablet, Take 1 tablet (25 mg) by mouth 2 times daily (with meals)., Disp: 180 tablet, Rfl: 1 hydrALAZINE (Apresoline) 50 MG tablet, Take 1 tablet (50 mg) by mouth 2 times daily., Disp: 180 tablet, Rfl: 1 Lancets (Vision CriticalTouch Delica Plus [id number]) mis, , Disp: , Rfl: nitroglycerin (Nitrostat) 0.4 MG SL tablet, Place 1 tablet (0.4 mg) under the tongue every 5 minutes as needed for chest pain., Disp: 90 tablet, Rfl: 0 omeprazole (PriLOSEC) [address] capsule, Take 1 capsule (20 mg) by mouth Daily as needed (reflux)., Disp: 90 capsule, Rfl: 1 Vision CriticalTouch Ultra test strip, , Disp: , Rfl: pembrolizumab (Keytruda) 100 MG/4ML chemo injection, Infuse 200 mg into a venous catheter., Disp: ,Rfl: predniSONE (Deltasone) 10 MG tablet, 10 mg every other day. Takes 5 mg on opposite days, Disp: , Rfl: Refresh Optive Advanced PF 0.5-1-0.5 % solution, Administer 1 drop into both eyes 2 times daily., Disp: , Rfl: rosuvastatin (Crestor) 40 MG tablet, TAKE 1 TABLET BY MOUTH EVERY DAY, Disp: 90 tablet, Rfl: 1 ipratropium-albuterol (Duo-Neb) 0.5-2.5 mg/3 mL nebulizer solution, Take 3 mL by nebulization threetimes daily., Disp: 180 mL, Rfl: 11 Patient Active Problem List Diagnosis Right carotid [...] HF chronicity, unspecified heart failure type (HCC) Type 2 diabetes mellitus (HCC) Obesity, morbid (HCC) Seizure (HCC) History of pulmonary embolism Ex-smoker 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 Sutherland, C3-5 , [place] COLONOSCOPY 02/2019 Ahmed- small polyp- due 2023 COLONOSCOPY 2013 med CORONARY ANGIOPLASTY WITH STENT PLACEMENT 1992 FLEXIBLE SIGMOIDOSCOPY 01/2025 Dr. Chambers- Keytruda induced colitis LUNG REMOVAL, PARTIAL Right 03/2021 [facility] thoractomy NECK SURGERY 03/08/2024 NEPHRECTOMY Left 2005 [facility]ni OTHER SURGICAL HISTORY 02/2021 EBUS/ENB SKIN CANCER DESTRUCTION 2011 squamous cell [...] Amairani Coronary artery disease Father age 50 [place] - smoker Coronary artery disease Brother Kaiden age 47 [place] Objective: BP 110/64 Pulse 90 Temp 37.9 C (100.2 F) (Temporal) Ht 5' 5 (1.651 m) Wt 179 lb 3.2 oz (81.3 kg) SpO2 92% BMI 29.82 kg/m Physical Exam pleasant operative. No acute distress. Well-hydrated. Nonicteric. Moist mucous membranes. Slightly flat tongue but no skin lesions. Clear postnasal drip. No adnexal masses or adenopathy. Heart is regular. Lungs with upper rhonchi and mild expiratory wheezes that clear with cough. No rales or egophony. Abdomen obese nontender protuberant without HS, masses, yes or ascites. Extremities are pink without edema or pallor documented in this [facility]04-15-2025 Instructions* Patient Instructions* Jacob Jennings DO - 02/21/2025 2:30 PM EDT I do recommend restarting your DuoNeb aerosols at least 3 times a day. Should take a multivitamin with a probiotic each day for many months. Please call forensic economist Dr. Malcolm for input on any med additions for your cough if things worsen. Notify us up if you have 1 week of purulent colored phlegmthat is accompanied by more shortness of breath and a sense of feeling ill. 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 March 15, 2025 9:31am 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 March 15, 2025 9: 31am Dysphagia acute March 21, 2025 4:55pm Pneumonia acute March 21, 2025 4:55pm Cancer of right kidney chronic Ma y 2024 4:55pm Hypoxia resolved March 21, 2025 4:55pm Nausea & vomiting resolved March 4:55pm Brain metastasis chronic March 10:30am Cancer of lower lobe of righ t lung chronic March 29, 2025 1 0:30am Cancer of right kidney chronic Ma 2024 10:30am History of primary malignant neoplasm of left kidney chronic March 10:30am Iron deficiency anemia due t o chronic blood loss chronic March 29 10:30am 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 March 29 10:30am 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 March 29, 2025 10:30am 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 March 29, 2025 1 0:30am Anemia acute March 30, 2025 10:02am Brain metastasis chronic April 12:29pm Cancer of lower lobe of righ t lung chronic April 12, 2025 1 2:29pm Cancer of right kidney chronic Ju ne 2024 12:29pm History of primary malignant neoplasm of left kidney chronic April 12:29pm Iron deficiency anemia due t o chronic blood loss chronic April 12 12:29pm 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 April 12 12:29pm 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 April 12, 2025 12:29pm 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 April 12, 2025 1 2:29pm Brain metastasis chronic April 9:32am Cancer of lower lobe of righ t lung chronic May 02, 2025 9:32am Cancer of right kidney chronic Ju ne 2024 9:32am History of primary malignant neoplasm of left kidney chronic April 9:32am Iron deficiency anemia due t o chronic blood loss chronic May 02 9:32am 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 May 02 9:32am 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 May 02, 2025 9:32am 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 May 02, 2025 9:32am Brain metastasis chronic May 9:38am Cancer of lower lobe of righ t lung chronic May 24, 2025 9:38am Cancer of right kidney chronic Ju ly 2024 9:38am History of primary malignant neoplasm of left kidney chronic May 9:38am Iron deficiency anemia due t o chronic blood loss chronic May 24 9:38am 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 March 15, 2025 9:31am 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 March 15, 2025 9: 31am Dysphagia acute March 21, 2025 4:55pm Pneumonia acute March 21, 2025 4:55pm Cancer of right kidney chronic Ma y 2024 4:55pm Hypoxia resolved March 21, 2025 4:55pm Nausea & vomiting resolved March 4:55pm Brain metastasis chronic March 10:30am Cancer of lower lobe of righ t lung chronic March 29, 2025 1 0:30am Cancer of right kidney chronic Ma y 2024 10:30am History of primary malignant neoplasm of left kidney chronic March 10:30am Iron deficiency anemia due t o chronic blood loss chronic March 29 10:30am 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 March 29 10:30am 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 March 29, 2025 10:30am 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 March 29, 2025 1 0:30am Anemia acute March 30, 2025 10:02am Brain metastasis chronic April 12:29pm Cancer of lower lobe of righ t lung chronic April 12, 2025 1 2:29pm Cancer of right kidney chronic Ju ne 2024 12:29pm History of primary malignant neoplasm of left kidney chronic April 12:29pm Iron deficiency anemia due t o chronic blood loss chronic April 12 12:29pm 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 April 12 12:29pm 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 April 12, 2025 12:29pm 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 April 12, 2025 1 2:29pm Brain metastasis chronic April 9:32am Cancer of lower lobe of righ t lung chronic May 02, 2025 9:32am Cancer of right kidney chronic Ju ne 2024 9:32am History of primary malignant neoplasm of left kidney chronic April 9:32am Iron deficiency anemia due t o chronic blood loss chronic May 02 9:32am 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 May 02 9:32am 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 May 02, 2025 9:32am 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 May 02, 2025 9:32am Brain metastasis chronic May 9:38am Cancer of lower lobe of righ t lung chronic May 24, 2025 9:38am Cancer of right kidney chronic Ju ly 2024 9:38am History of primary malignant neoplasm of left kidney chronic May 9:38am Iron deficiency anemia due t o chronic blood loss chronic May 24 9:38am 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 May 24 9:38am 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 May 24, 2025 9:38am 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 May 24, 2025 9:38am COPD (chronic obstructive pulmonary disease) chronic June 09 10:30am 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 June 09 10:30am Encounter for immunotherapy acute June 15, 2025 10:28am Brain metastasis chronic June 152024 10:28am Cancer of lower lobe of righ t lung chronic June 15, 2025 10:28am Cancer of right kidney chronic Au 2024 10:28am History of primary malignant neoplasm of left kidney chronic June 152024 10:28am Iron deficiency anemia due t o chronic blood loss chronic June 15 10:28am 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 June 15 10:28am 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 June 15, 2025 10:28am Regional lymph node metastas is present June 15, 2025 10:28am [facility] [employer] [facility] Work Phone: 1(917) 468-368503-26-2025 Evaluation note* Diagnosis Onset Date Resolution Status Admit Date Brain metastasis chronic February 012024 9:40am Cancer of lower lobe of righ t lung chronic February 01, 2025 9:40am Cancer of right kidney chronic Ma rc 2024 9:40am History of primary malignant neoplasm of left kidney chronic February 012024 9:40am Iron deficiency anemia due t o chronic blood loss chronic February 01 9:40am 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 February 01 9:40am 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 February 01, 2025 9:40am 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 February 01, 2025 9:40am Anemia acute February 16 12:53pm Brain metastasis chronic March 15, 2025 9:31am Cancer of lower lobe of righ t lung chronic March 15, 2025 9: 31am Cancer of right kidney chronic Ma y 2024 9:31am History of primary malignant neoplasm of left kidney chronic March 15, 2025 9:31am Iron deficiency anemia due t o chronic blood loss chronic March 15, 2025 9:31am 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 March 15, 2025 9:31am 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 March 15, 2025 9:31am 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 March 15, 2025 9: 31am Dysphagia acute March 21, 2025 4:55pm Pneumonia acute March 21, 2025 4:55pm Cancer of right kidney chronic Ma y 2024 4:55pm Hypoxia resolved March 21, 2025 4:55pm Nausea & vomiting resolved March 4:55pm Brain metastasis chronic March 10:30am Cancer of lower lobe of righ t lung chronic March 29, 2025 1 0:30am Cancer of right kidney chronic Ma y 2024 10:30am History of primary malignant neoplasm of left kidney chronic March 10:30am Iron deficiency anemia due t o chronic blood loss chronic March 29 10:30am 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 March 29 10:30am 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 March 29, 2025 10:30am 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 March 29, 2025 1 0:30am Anemia acute March 30, 2025 10:02am Brain metastasis chronic April 12:29pm Cancer of lower lobe of righ t lung chronic April 12, 2025 1 2:29pm Cancer of right kidney chronic Ju 2024 12:29pm History of primary malignant neoplasm of left kidney chronic April 12:29pm Iron deficiency anemia due t o chronic blood loss chronic April 12 12:29pm 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 April 12 12:29pm 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 April 12, 2025 12:29pm 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 April 12, 2025 1 2:29pm Brain metastasis chronic April 9:32am Cancer of lower lobe of righ t lung chronic May 02, 2025 9:32am Cancer of right kidney chronic Ju ne 2024 9:32am History of primary malignant neoplasm of left kidney chronic April 9:32am Iron deficiency anemia due t o chronic blood loss chronic May 02 9:32am 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 May 02 9:32am 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 May 02, 2025 9:32am 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 May 02, 2025 9:32am Brain metastasis chronic May 9:38am Cancer of lower lobe of righ t lung chronic May 24, 2025 9:38am Cancer of right kidney chronic Ju ly 2024 9:38am History of primary malignant neoplasm of left kidney chronic May 9:38am Iron deficiency anemia due t o chronic blood loss chronic May 24 9:38am 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 [id number] Miscellaneous Notes* Telephone Encounter - Monalisa Sanford MA - 01/23/2025 5:07 PM EDT Left fabiola a detailed message and to call the office if any questions. * Telephone Encounter - Nidia Yoon - 01/23/2025 2:38 PM EDT Name of caller: Fabiola Contact phone number: [phone] Relationship to Patient: [facility] PT Provider: Dr. Jennings Practice: [facility] Chief Complaint/Reason for Call: Caller states today 01.23.2025, was patients first appointment. Will continue PT 2 x a week for 3 weeks for functional mobility training. FYI, thank you. Best time of day caller can be reached: Any Patient advised that office/PCP has 24-48 business hours to return their call: Yes documented in this encounterSKettering [facility] [id number] Telephone encounter Note* Telephone Encounter - Nidia Yoon - 01/23/2025 2:38 PM EDT Name of caller: Fabiola Contact phone number: [phone] Relationship to Patient: [facility] PT Provider: Dr. Jennings Practice: [facility] Chief Complaint/Reason for Call: Caller states today 01.23.2025, was patients first appointment. Will continue PT 2 x a week for 3 weeks for functional mobility training. TOSHIAI, thank you. 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 Chambers in [place] to get a copy of the most recent colonoscopy and office notes about colonic AVM, lower GI bleeding, and possible treatments in the future. Also copy of the results of his recent camera endoscopy. That is not in this record. documented in this [facility]03-14-2025 Telephone encounter Note* Telephone Encounter - Lesly Barrios RN - 01/20/2025 5:11 PM EDT S: Patient's spoke with [facility] nurse regarding greenish-love coating on tongue. B: Onset of symptoms/concern began 2-3 days ago. A: Patient has a greenish-love pimple-like coating on his tongue that is causing pain. Patient can barely eat. Patient was discharged from [facility] 2 days ago, admitted with flu and COVID. looked at tongue just now, saw the coating and called. Nothing on cheeks or gums. Requesting Rx be sent to pharmacy. R: Paged Dr. Jennings, who messaged back that he sent in a Rx for nystatin solution. Relayed message patient via vague VM that Rx was sent to his pharmacy. Reason for Disposition [1] White patches that stick to tongue or inner cheek AND [2] can be wiped off Protocols used: Mouth [id number] Miscellaneous Notes* Telephone Encounter - Lesly Barrios RN - 01/20/2025 5:11 PM EDT S: Patient's spoke with [facility] nurse regarding greenish-love coating on tongue. B: Onset of symptoms/concern began 2-3 days ago. A: Patient has a greenish-love pimple-like coating on his tongue that is causing pain. Patient can barely eat. Patient was discharged from [facility] 2 days ago, admitted with flu and COVID. looked at tongue just now, saw the coating and called. Nothing on cheeks or gums. Requesting Rx be sent to pharmacy. R: Paged Dr. Jennings, who messaged back that he sent in a Rx for nystatin solution. Relayed message patient via vague VM that Rx was sent to his pharmacy. Reason for Disposition [1] White patches that stick to tongue or inner cheek AND [2] can be wiped off Protocols used: Mouth [id number] documented in this encounterSKettering Health Washington [id number] [facility]03-04-2025 Evaluation note* Diagnosis Onset Date Resolution Status Admit Date Closed head injury acute January 10, 2025 1:50pm Declining functional status acute January 10, 2025 1:50pm Dehydration acute January 10 1:50pm Brain metastasis chronic January 1:50pm Metastatic renal cell carcin marleen to lung chronic January 10, 2025 1:50pm Acute infective gastroenteritis reso lved January 10, 2025 1:50pm Hypoxemia resolved January 10 1:50pm Shock resolved January 10 1:50pm Brain metastasis chronic February 012024 9:40am Cancer of lower lobe of righ t lung chronic February 01, 2025 9:40am Cancer of right kidney chronic Ma [facility] 2024 9:40am History of primary malignant neoplasm of left kidney chronic February 012024 9:40am Iron deficiency anemia due t o chronic blood loss chronic February 01, 9:40am 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 February 01 9:40am 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 February 01, 2025 9:40am 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 February 01, 2025 9:40am Anemia acute February 16 12:53pm Brain metastasis chronic March 15, 2025 9:31am Cancer of lower lobe of righ t lung chronic March 15, 2025 9: 31am Cancer of right kidney chronic Ma 2024 9:31am History of primary malignant neoplasm of left kidney chronic March 15, 2025 9:31am Iron deficiency anemia due t o chronic blood loss chronic March 15, 2025 9:31am 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 March 15, 2025 9:31am 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 March 15, 2025 9:31am 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 March 15, 2025 9: 31am Dysphagia acute March 21, 2025 4:55pm Pneumonia acute March 21, 2025 4:55pm Cancer of right kidney chronic Ma y 2024 4:55pm Hypoxia resolved March 21, 2025 4:55pm Nausea & vomiting resolved March 4:55pm Brain metastasis chronic March 10:30am Cancer of lower lobe of righ t lung chronic March 29, 2025 1 0:30am Cancer of right kidney chronic Ma y 2024 10:30am History of primary malignant neoplasm of left kidney chronic March 10:30am Iron deficiency anemia due t o chronic blood loss chronic March 29 10:30am 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 March 29 10:30am 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 March 29, 2025 10:30am 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 March 29, 2025 1 0:30am Anemia acute March 30, 2025 10:02am Brain metastasis chronic April 12:29pm Cancer of lower lobe of righ t lung chronic April 12, 2025 1 2:29pm Cancer of right kidney chronic 2024 12:29pm History of primary malignant neoplasm of left kidney chronic April 12:29pm Iron deficiency anemia due t o chronic blood loss chronic April 12 12:29pm 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 April 12 12:29pm 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 Work Phone: [phone] Telephone encounter Note* Telephone Encounter - Ofe Hale MA - 01/05/2025 8:40 AM EST Dick has seen these records [id number] Miscellaneous Notes* Telephone Encounter - Ofe Hale MA - 01/05/2025 8:40 AM EST Dick has seen these records * Telephone Encounter - Monalisa Sanford MA - 12/12/2024 1:52 PM EST Spoke with Dr Bing orantes and they will be faxing over this recent report, * Telephone Encounter - Heike Gamez - 12/12/2024 1:44 PM EST Name of caller: Nessa Contact phone number: [phone] Relationship to Patient: [facility] Provider: DO Dick Practice: [facility] Chief Complaint/Reason for Call: Nessa would like a call to discuss patients information Best time of day caller can be reached: PM Patient advised that office/PCP has 24-48 business hours to return their call: Yes documented in this encounterSKettering Health Washington [id number] Telephone encounter Note* Telephone Encounter - Janelle Montgomery - 01/02/2025 2:27 PM EST Records requested [id number] Telephone encounter Note* Telephone Encounter - Sierra Hernandez LPN - 01/02/2025 7:59 AM EST Noted. [id number] Miscellaneous Notes* Telephone Encounter - Sierra Hernandez LPN - 01/02/2025 7:59 AM EST Noted. * Telephone Encounter - Beatriz Damon RN - 12/30/2024 3:22 PM EST S: Luli, from [employer], spoke with [facility] nurse regarding stat lab results from todau B: Onset of symptoms/concern RAMON 12/30/24 A: [employer] calling lab results from today, no critical values noted and is faxing results to office as well. Verified fax number. R: Secure chat message to Dr. Jennings, who advises: reviewed lab all ok, can you call the pt and reassure him there is no sign of a bacterial infection of his abdomen, bleeding liver or renal concerns like dehydration or liver inflammation. for now, continue liquids and progress diet as tolerated. await the results of his upcoming Cts with his oncologist. no med changes, take Zofran as needed for nausea Call to patient with information as above and states understanding. No further need at this time. * Telephone Encounter - Beatriz Damon RN - 12/30/2024 1:46 PM EST S: Luli, from [employer], spoke with [facility] nurse regarding stat lab results from todau B: Onset of symptoms/concern RAMON 12/30/24 A: [facility] calling lab results from today, no critical values noted and is faxing results to office as well. Verified fax number. R: Message to provider for review. No further needs at this time. Reason for Disposition Lab or radiology calling with test results Protocols used: PCP Call - No [id number] documented in this [facility]02-21-2025 Telephone encounter Note* Telephone Encounter - Beatriz Damon RN - 12/30/2024 3:22 PM EST S: Luli from [employer], spoke with [facility] nurse regarding stat lab results from todau B: Onset of symptoms/concern RAMON 12/30/24 A: [facility] calling lab results from today, no critical values noted and is faxing results to office as well. Verified fax number. R: Secure chat message to Dr. Jennings, who advises: reviewed lab all ok, can you call the pt and reassure him there is no sign of a bacterial infection of his abdomen, bleeding liver or renal concerns like dehydration or liver inflammation. for now, continue liquids and progress diet as tolerated. await the results of his upcoming Cts with his oncologist. no med changes, take Zofran as needed for nausea Call to patient with information as above and states understanding. No further need at this time. [id number] Miscellaneous Notes* Telephone Encounter - Beatriz Damon RN - 12/30/2024 3:22 PM EST S: Luli, from [employer], spoke with [facility] nurse regarding stat lab results from todau B: Onset of symptoms/concern RAMON 12/30/24 A: [facility] calling lab results from today, no critical values noted and is faxing results to office as well. Verified fax number. R: Secure chat message to Dr. Jennings, who advises: reviewed lab all ok, can you call the pt and reassure him there is no sign of a bacterial infection of his abdomen, bleeding liver or renal concerns like dehydration or liver inflammation. for now, continue liquids and progress diet as tolerated. await the results of his upcoming Cts with his oncologist. no med changes, take Zofran as needed for nausea Call to patient with information as above and states understanding. No further need at this time. * Telephone Encounter - Beatriz Damon RN - 12/30/2024 1:46 PM EST S: Luli, from [employer], spoke with [facility] nurse regarding stat lab results from todau B: Onset of symptoms/concern RAMON 12/30/24 A: [facility] calling lab results from today, no critical values noted and is faxing results to office as well. Verified fax number. R: Message to provider for review. No further needs at this time. Reason for Disposition Lab or radiology calling with test results Protocols used: PCP Call - No [id number] documented in this [facility]02-21-2025 Telephone encounter Note* Telephone Encounter - Beatriz Damon RN - 12/30/2024 1:46 PM EST S: Luli, from [employer], spoke with [facility] nurse regarding stat lab results from todau B: Onset of symptoms/concern RAMON 2/21/25 A: [facility] calling lab results from today, no critical values noted and is faxing results to office as well. Verified fax number. R: Message to provider for review. No further needs at this time. 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 Chambers in [place] to get a copy of the most recent colonoscopy and office notes about colonic AVM, lower GI bleeding, and possible treatments in the future. Also copy of the results of his recent camera endoscopy. That is not in this record. [id number] History of Present illness Narrative* Jacob Jennings DO - 12/30/2024 10:00 AM EST Images from the original note were not included. [facility] - [address] [facility] [phone] Visit type: Established Patient Reason for Visit: Hospital Follow-up ( ), Fever, Respiratory Distress, and Vomiting (Can't eat ) Assessment / Plan: Kenn was seen today for hospital follow-up, fever, respiratory distress and vomiting. Diagnoses and all orders for this visit: Nausea (Primary) Comments: Recurrent, Zofran, check lab, await CT abdomen Orders: - CBC auto differential; Future - Comprehensive metabolic panel; Future - Lipase; Future - CBC auto differential - Comprehensive metabolic panel - Lipase Chronic bronchitis, unspecified chronic bronchitis type (HCC) Comments: Resolved URI. Patient should follow-up with pulmonary as well-recommend perhaps recheck PFTs and LABA therapy Hypochromic microcytic anemia Comments: Very stable, follow-up with GI on intervention on GI AVM History of bleeding peptic ulcer Comments: For now increase Prilosec to 40 mg daily for 1 week and then 10 to 20 mg again. 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 Other orders - ondansetron (Zofran) 8 MG tablet; Take 1 tablet (8 mg) by mouth every 8 hours as needed for nausea or vomiting for up to 7 days. 30 Minutes spent on reviewing pertinent medical, surgical, family and social history, patient interview, physical exam, discussion of diagnosis, treatment and work-up options. Reviewed recent CT of the abdomen, chest, and previous GI reports. Subjective: Patient ID: Kenn Arshad is a 69 y.o. male. HPI patient presents to the office after being hospitalized for an hypoxic event possibly due to a nondescript viral illness. Was sent home on prednisone 20 twice daily and his shortness of breath and cough is improving. Has minimal clear drainage. Biggest concern today is ongoing generalized abdominal distress. Some nausea and vomiting from 14 December but that resolved. However had some emesis in the last 24 hours. Also had about 5 days of constipation. Had a normal bowel movement yesterday. Generalized upper quadrant abdominal achiness. Would not call a pain. He is on Prilosec daily. Was on prednisone without distress. No early satiety melena or blood. No chronic constipation or diarrhea. Of note apparently he recently completed a camera endoscopy which showed 2 small blood vessels in his either small or large colon. He has been referred from Dr. Chambers in [place] to [facility] for evaluation. Apparently he had procedure for a similar blood vessel issue done by Dr. Chambers about 2 years ago. Do not have those records. Nonetheless there is no melena or blood. His CBC includinghemoglobin has been stable Review of Systems no fevers or sweats or chills. Phlegm is clear. No chest pain or pleurisy. Deniesright upper quadrant abdominal pain. History of ventral hernia but is passing flatus. Just is not hungry. Has lost some weight. Denies dysuria hematuria. No recent mental status change. He does states his urine is darker but not brown. Urinating a few times a day. No Known Allergies Current Outpatient Medications on File Prior to Visit Medication Sig Dispense Refill amLODIPine (Norvasc) 10 MG tablet Take 1 tablet (10 mg) by mouth daily for 180 doses. 90 tablet 1 apixaban (Eliquis) 2.5 MG tablet One q day 90 tablet 0 carvedilol (Coreg) 25 MG tablet Take 1 tablet (25 mg) by mouth 2 times daily (with meals). 180 tablet 1 hydrALAZINE (Apresoline) 50 MG tablet Take 1 tablet (50 mg) by mouth 2 times daily. 180 tablet 1 ipratropium-albuterol (Duo-Neb) 0.5-2.5 mg/3 mL nebulizer solution Inhale 3 mL. omeprazole (PriLOSEC) [address] capsule Take 1 capsule (20 mg) by mouth Daily as needed (reflux). 90capsule 1 pembrolizumab (Keytruda) 100 MG/4ML chemo injection Infuse 200 mg into a venous catheter. prednisoLONE acetate (Pred-Forte) 1 % ophthalmic suspension Administer 1 drop into the left eye 2 times daily. Refresh Optive Advanced PF 0.5-1-0.5 % solution Administer 1 drop into both eyes 2 times daily. rosuvastatin (Crestor) 40 MG tablet TAKE 1 TABLET BY MOUTH EVERY DAY 90 tablet 1 Lancets (Vision CriticalTouch Delica Plus [id number]) misc nitroglycerin (Nitrostat) 0.[address] 1 tablet (0.4 mg) under the tongue every 5 minutesas needed for chest pain. 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 Sutherland, C3-5 , [place] COLONOSCOPY 02/2019 Ahmed- small polyp- due 2023 COLONOSCOPY 2013 [facility] CORONARY ANGIOPLASTY WITH STENT PLACEMENT 1993 LUNG REMOVAL, PARTIAL Right 03/2021 VATS thoractomy NECK SURGERY 03/08/2024 NEPHRECTOMY Left 2006 [facility] OTHER SURGICAL HISTORY 02/2021 EBUS/ENB SKIN CANCER DESTRUCTION 2011 squamous cell [...] Amairani Coronary artery disease Father age 50 [place] - smoker Coronary artery disease Brother Kaiden age 47 [place] Objective: BP 118/78 Pulse 68 Temp 36.7 C (98 F) (Temporal) Resp 14 Ht 5' 5 (1.651 m) Wt 204 lb (92.5 kg) SpO2 94% BMI 33.95 kg/m Physical Exam Alert and pleasant. Not ill in appearance. Moist mucous membranes. Clear postnasal drip. Neck supple without pain. No neck masses adenopathy or thyroid lesions. Heart is regular without ectopy or murmurs. Lungs are diminished in the bases but without rales wheezes or egophony. Abdomen slightly achyin the upper quadrants but soft good bowel sounds without hepatosplenomegaly or masses. Certainly no guarding rigidity or rebound tenderness. No ascites. No adenopathy. Extremities are pink without pallor or edema. Reviewed recent hospitalization records. Will obtain GI reports documented in this [facility]02-21-2025 Instructions* Patient Instructions* Jacob Jennings DO - 12/30/2024 10:00 AM EST Increase Prilosec to 40 mg daily for 1 week and then down to 20 mg a day. 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 Follow-up with oncology for CAT scan imaging as directed. documented in this [facility]02-19-2025 Telephone encounter Note* Telephone Encounter - Ginette Bentley RN - 12/28/2024 12:58 PM EST S: Patient's spoke with CAC nurse regarding vomiting, no appetite, fever B: Onset of symptoms/concern 1 month ago A: Has been vomiting, still running fever, decreased appetite, was admitted to [facility] on 12/14 out 12/16, still not doing well. Treated for COPD exacerbation, temps will run between 99-101 currently, vomits about twice per day, is able to keep fluids in but no appetite. Just had cancer treatment on 12/21, has been sick frequently so has missed treatments. states always lightheaded due to cancer. Denies: abdominal pain, blood in vomit, difficulty urinating or having BM's, dizziness, R: Patient scheduled hospital follow up appointment with Dr. Jennings 12/30/24 at 10am. Patient's understands care advice. No further needs at this time. Patient instructed to call back with new or worsening symptoms. Reason for Disposition Fever > 100 F (37.8 C) and has a weak immune system (e.g., HIV positive, cancer chemo, organ transplant, splenectomy, chronic steroids) Protocols used: [id number] Miscellaneous Notes* Telephone Encounter - Ginette Bentley RN - 12/28/2024 12:58 PM EST S: Patient's spoke with CAC nurse regarding vomiting, no appetite, fever B: Onset of symptoms/concern 1 month ago A: Has been vomiting, still running fever, decreased appetite, was admitted to [facility] on 12/14 out 12/16, still not doing well. Treated for COPD exacerbation, temps will run between 99-101 currently, vomits about twice per day, is able to keep fluids in but no appetite. Just had cancer treatment on 12/21, has been sick frequently so has missed treatments. states always lightheaded due to cancer. Denies: abdominal pain, blood in vomit, difficulty urinating or having BM's, dizziness, R: Patient scheduled hospital follow up appointment with Dr. Jennings 12/30/24 at 10am. Patient's understands care advice. No further needs at this time. Patient instructed to call back with new or worsening symptoms. Reason for Disposition Fever > 100 F (37.8 C) and has a weak immune system (e.g., HIV positive, cancer chemo, organ transplant, splenectomy, chronic steroids) Protocols used: [id number] documented in this [facility]02-12-2025 Evaluation note* Diagnosis Onset Date Resolution Status Admit Date Brain metastasis chronic December 21, 2024 8:47am Cancer of lower lobe of righ t lung chronic December 21 025 8:47am Cancer of right kidney chronic Fe [facility]2024 8:47am History of primary malignant neoplasm of left kidney chronic December 21, 2024 8:47am Iron deficiency anemia due t o chronic blood loss chronic December 8:47am 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 December 8:47am 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 December 21, 2024 8:47am 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 December 21 025 8:47am Closed head injury acute January 10, 2025 1:50pm Declining functional status acute January 10, 2025 1:50pm Dehydration acute January 10 1:50pm Brain metastasis chronic January 1:50pm Metastatic renal cell carcin marleen to lung chronic January 10, 2025 1:50pm Acute infective gastroenteritis reso lved January 10, 2025 1:50pm Hypoxemia resolved January 10 1:50pm Shock resolved January 10 1:50pm Brain metastasis chronic February 012024 9:40am Cancer of lower lobe of righ t lung chronic February 01, 2025 9:40am Cancer of right kidney chronic Ma rch 2024 9:40am History of primary malignant neoplasm of left kidney chronic February 012024 9:40am Iron deficiency anemia due t o chronic blood loss chronic February 01, 025 9:40am 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 February 01 9:40am 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 February 01, 2025 9:40am 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 February 01, 2025 9:40am Anemia acute February 16 12:53pm Brain metastasis chronic March 15, 2025 9:31am Cancer of lower lobe of righ t lung chronic March 15, 2025 9: 31am Cancer of right kidney chronic Ma 2024 9:31am History of primary malignant neoplasm of left kidney chronic March 15, 2025 9:31am Iron deficiency anemia due t o chronic blood loss chronic March 15, 2025 9:31am 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 March 15, 2025 9:31am 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 March 15, 2025 9:31am 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 March 15, 2025 9: 31am Dysphagia acute March 21, 2025 4:55pm Pneumonia acute March 21, 2025 4:55pm Cancer of right kidney chronic Ma y 2024 4:55pm Hypoxia resolved March 21, 2025 4:55pm Nausea & vomiting resolved March 4:55pm Brain metastasis chronic March 10:30am Cancer of lower lobe of righ t lung chronic March 29, 2025 1 0:30am Cancer of right kidney chronic Ma y 2024 10:30am History of primary malignant neoplasm of left kidney chronic March 10:30am Iron deficiency anemia due t o chronic blood loss chronic March 29 10:30am 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 March 29 10:30am 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 March 29, 2025 10:30am 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 March 29, 2025 1 0:30am Anemia acute March 30, 2025 10:02am Brain metastasis chronic April 12:29pm Cancer of lower lobe of righ t lung chronic April 12, 2025 1 2:29pm Cancer of right kidney chronic Ju 2024 12:29pm History of primary malignant neoplasm of left kidney chronic April 12:29pm Iron deficiency anemia due t o chronic blood loss chronic April 12 12:29pm 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 April 12 12:29pm 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 April 12, 2025 12:29pm 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 April 12, 2025 1 2:29pm [facility] Work Phone: [phone]) 345-849302-07-2025 [facility]02-05-2025 Evaluation note* Diagnosis Onset Date Resolution Status Admit Date Hyponatremia resolved December 9:13pm Hypoxia resolved December 14, 2024 9:13pm COPD exacerbation inactive 2024 9:13pm Brain metastasis chronic December 21, 2024 8:47am Cancer of lower lobe of righ t lung chronic December 21, 2 025 8:47am Cancer of right kidney chronic Fe bru2024 8:47am History of primary malignant neoplasm of left kidney chronic December 21, 2024 8:47am Iron deficiency anemia due t o chronic blood loss chronic December 8:47am 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 December 8:47am 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 December 21, 2024 8:47am 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 December 21, 025 8:47am Closed head injury acute January 10, 2025 1:50pm Declining functional status acute January 10, 2025 1:50pm Dehydration acute January 10 1:50pm Brain metastasis chronic January 1:50pm Metastatic renal cell carcin marleen to lung chronic January 10, 2025 1:50pm Acute infective gastroenteritis reso lved January 10, 2025 1:50pm Hypoxemia resolved January 10 1:50pm Shock resolved January 10 1:50pm Brain metastasis chronic February 012024 9:40am Cancer of lower lobe of righ t lung chronic February 01, 2025 9:40am Cancer of right kidney chronic Ma rch 2024 9:40am History of primary malignant neoplasm of left kidney chronic February 012024 9:40am Iron deficiency anemia due t o chronic blood loss chronic February 01 9:40am 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 February 01 9:40am 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 February 01, 2025 9:40am 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 February 01, 2025 9:40am Anemia acute February 16 12:53pm Brain metastasis chronic March 15, 2025 9:31am Cancer of lower lobe of righ t lung chronic March 15, 2025 9: 31am Cancer of right kidney chronic Ma y 2024 9:31am History of primary malignant neoplasm of left kidney chronic March 15, 2025 9:31am Iron deficiency anemia due t o chronic blood loss chronic March 15, 2025 9:31am 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 March 15, 2025 9:31am 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 March 15, 2025 9:31am 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 March 15, 2025 9: 31am Dysphagia acute March 21, 2025 4:55pm Pneumonia acute March 21, 2025 4:55pm Cancer of right kidney chronic Ma y 2024 4:55pm Hypoxia resolved March 21, 2025 4:55pm Nausea & vomiting resolved March 4:55pm Brain metastasis chronic March 10:30am Cancer of lower lobe of righ t lung chronic March 29, 2025 1 0:30am Cancer of right kidney chronic Ma y 2024 10:30am History of primary malignant neoplasm of left kidney chronic March 10:30am Iron deficiency anemia due t o chronic blood loss chronic March 29 10:30am 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 March 29 10:30am 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 March 29, 2025 10:30am 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 March 29, 2025 1 0:30am Anemia acute March 30, 2025 10:02am Brain metastasis chronic April 12:29pm Cancer of lower lobe of righ t lung chronic April 12, 2025 1 2:29pm Cancer of right kidney chronic Ju 2024 12:29pm History of primary malignant neoplasm of left kidney chronic April 12:29pm Iron deficiency anemia due t o chronic blood loss chronic April 12 12:29pm 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 April 12 12:29pm 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 * Telephone Encounter - Monalisa Sanford MA - 12/12/2024 11:35 AM EST Spoke with patient and she said they just found out he has 2 small lesions on his bowels and she is not happy with that gastro Dr Friend they want him to go to [place] and she said she can't drive to [place] , that she wants him referred back to Dr Osei in [place] and wants your opinion onthis she says she is also waiting on a call back from his cancer doctor as well. * Telephone Encounter - Leigh Casiano RN - 12/12/2024 10:10 AM EST S: The is calling the [facility] about a fever despite antibiotics. B: He was seen on December 06 for sinusitis. Augmentiin was stopped and he was started on Levaquin. A: He has only three pills left and there is no improvement. He has a temperature of 100.1 F with dry heaves intermittently. This fever is NOT new - it is just not resolving with the antibiotic. No dyspnea or wheezing. He is eating (small amounts) and drinking adequate amounts; he is urinatingregularly. He has occasional lightheadedness/dizziness but this is related to his lung cancer. He has lung cancer and a history of COPD. He is not using oxygen anymore. He is getting Keyturda every three weeks; he has missed doses and is scheduled for another injection on . He will call the oncologist again. R: Concerned with ongoing temperature despite the antibiotics with his chemotherapy therapy. Discussed with the office; they would like a high priority message so this can be discussed with Dr. Jennings. Reason for Disposition Taking antibiotic > 48 hours (2 days) and fever persists Protocols used: Sinus Infection on Antibiotic Follow-up [id number] documented in this [facility]02-03-2025 Telephone encounter Note* Telephone Encounter - Monalisa Sanford MA - 12/12/2024 1:52 PM EST Spoke with Dr Smart office and they will be faxing over this recent report, [id number] Miscellaneous Notes* Telephone Encounter - Monalisa Sanford MA - 12/12/2024 1:52 PM EST Spoke with Dr Smart office and they will be faxing over this recent report, * Telephone Encounter - Heike Gamez - 12/12/2024 1:44 PM EST Name of caller: Nessa Contact phone number: [phone] Relationship to Patient: [facility] Provider: DO Dick Practice: [facility] Chief Complaint/Reason for Call: Nessa would like a call to discuss patients information Best time of day caller can be reached: PM Patient advised that office/PCP has 24-48 business hours to return their call: Yes documented in this [facility]02-03-2025 Telephone encounter Note* Telephone Encounter - Heike Gamez - 12/12/2024 1:44 PM EST Name of caller: Nessa Contact phone number: [phone] Relationship to Patient: [facility] Provider: DO Dick Practice: [facility] Chief Complaint/Reason for Call: Nessa would like a call to discuss patients information Best time of day caller can be reached: PM Patient advised that office/PCP has 24-48 business hours to return their call: Yes [id number] Telephone encounter Note* Telephone Encounter - Monalisa Sanford MA - 12/12/2024 1:12 PM EST Left message with Dr Smart office to return call to the office. [id number] Telephone encounter Note* Telephone Encounter - Monalsia Sanford MA - 12/12/2024 11:35 AM EST Spoke with patient and she said they just found out he has 2 small lesions on his bowels and she is not happy with that gastro Dr Friend they want him to go to [place] and she said she can't drive to [place] , that she wants him referred back to Dr Osei in [place] and wants your opinion onthis she says she is also waiting on a call back from his cancer doctor as well. [place] [id number] Telephone encounter Note* Telephone Encounter - Leigh Casiano RN - 12/12/2024 10:10 AM EST S: The is calling the [facility] about a fever despite antibiotics. B: He was seen on December 06 for sinusitis. Augmentiin was stopped and he was started on Levaquin. A: He has only three pills left and there is no improvement. He has a temperature of 100.1 F with dry heaves intermittently. This fever is NOT new - it is just not resolving with the antibiotic. No dyspnea or wheezing. He is eating (small amounts) and drinking adequate amounts; he is urinatingregularly. He has occasional lightheadedness/dizziness but this is related to his lung cancer. He has lung cancer and a history of COPD. He is not using oxygen anymore. He is getting Keyturda every three weeks; he has missed doses and is scheduled for another injection on . He will call the oncologist again. R: Concerned with ongoing temperature despite the antibiotics with his chemotherapy therapy. Discussed with the office; they would like a high priority message so this can be discussed with Dr. Jennings. Reason for Disposition Taking antibiotic > 48 hours (2 days) and fever persists Protocols used: Sinus Infection on Antibiotic Follow-up [id number] History of Present illness Narrative* Jacob Jennings, - 12/06/2024 11:00 AM EST Images from the original note were not included. [facility] - [address] [facility] [id number] Visit type: Established Patient Reason for Visit: Nasal Congestion (Coughing up green and brown mucus /Head congestion ), Diarrhea,and Other (Seen at Urgent Care Thursday, Flu and COVID test both NEGATIVE ) Assessment / Plan: Kenn was seen today for nasal congestion, diarrhea and other. Diagnoses and all orders for this visit: Acute non-recurrent frontal sinusitis (Primary) Adverse effect of drug, subsequent encounter Comments: Stop Augmentin, discussed rash with oncology for possible med options. 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 Other orders - levoFLOXacin (Levaquin) 500 MG tablet; Take 1 tablet (500 mg) by mouth daily for 10 days. - apixaban (Eliquis) 2.5 MG tablet; One q day Subjective: Patient ID: Kenn Arshad is a 69 y.o. male. HPI patient with history of COPD and metastatic lung cancer to the brain on Keytruda for many yearspresents with a week of persistent nasal rhinorrhea that is thick and green despite being on Augmentin for the last 4 days. Having some diarrhea with that med as well. [facility]. Denies chest pain or change in shortness of breath. No confusion. No pleurisy or abdominal pain. Did have some nausea vomiting and diarrhea. Drinking lots of liquids and urinating well. Review of Systems severely itchy rash is recurring off oral Decadron that he was given for brain metastasis and intracranial swelling. Rash of his chest is worsening as he still gets Keytruda every 3weeks. Will be seeing his oncologist tomorrow for routine checkup and lab work. Did see human services program specialist who confirmed he thinks the rash is from his Keytruda No Known Allergies Current Outpatient Medications on File Prior to Visit Medication Sig Dispense Refill amLODIPine (Norvasc) 10 MG tablet Take 1 tablet (10 mg) by mouth daily for 180 doses. 90 tablet 1 carvedilol (Coreg) 25 MG tablet Take 1 tablet (25 mg) by mouth 2 times daily (with meals). 180 tablet 1 hydrALAZINE (Apresoline) 50 MG tablet Take 1 tablet (50 mg) by mouth 2 times daily. 180 tablet 1 ipratropium-albuterol (Duo-Neb) 0.5-2.5 mg/3 mL nebulizer solution Inhale 3 mL. Lancets (Olarkuch Delica Plus [id number]) misc nitroglycerin (Nitrostat) 0.[address] 1 tablet (0.4 mg) under the tongue every 5 minutesas needed for chest pain. 90 tablet 0 omeprazole (PriLOSEC) [address] capsule Take 1 capsule (20 mg) by mouth Daily as needed (reflux). 90capsule 1 [employer] Ultra test strip pembrolizumab (Keytruda) 100 MG/4ML chemo injection Infuse 200 mg into a venous catheter. prednisoLONE acetate (Pred-Forte) 1 % ophthalmic suspension Administer 1 drop into the left eye 2 times daily. Refresh Optive Advanced PF 0.5-1-0.5 % solution Administer 1 drop into both eyes 2 times daily. rosuvastatin (Crestor) 40 MG tablet TAKE 1 TABLET BY MOUTH EVERY DAY 90 tablet 1 [DISCONTINUED] amoxicillin-clavulanate (Augmentin) 875-125 MG tablet Take 1 tablet by mouth every 12 hours. [DISCONTINUED] apixaban (Eliquis) 5 MG tablet Take 0.5 tablets (2.5 mg) by mouth 2 times daily. 180tablet 1 [DISCONTINUED] apixaban (Eliquis) 5 MG tablet Take 0.5 tablets (2.5 mg) by mouth 2 times daily. 180tablet 1 [DISCONTINUED] dexAMETHasone (Decadron) 1 MG tablet Take 1 mg by mouth 3 times daily. (Patient not taking: Reported on 12/06/2024) No current facility-administered medications on file prior [...] Social History Tobacco Use Smoking status: Former Current packs/day: 0.00 Average packs/day: 1.5 packs/day for 40.1 years (60.2 ttl pk-yrs) Types: Cigarettes Start date: 02/01/1981 Quit date: 03/12/2021 Years since quittin.7 Smokeless tobacco: Never Substance Use Topics Alcohol use: Yes Alcohol/week: 14.0 standard drinks of alcohol Past Surgical History: Procedure Laterality Date ANTERIOR CERVICAL DISCECTOMY W/ FUSION 02/2024 Dr. Sutherland, C3-5 , [place] COLONOSCOPY 02/2019 Ahmed- small polyp- due 2023 COLONOSCOPY 2013 [facility] CORONARY ANGIOPLASTY WITH STENT PLACEMENT 1993 LUNG REMOVAL, PARTIAL Right 03/12/2021 VATS thoractomy NECK SURGERY 03/08/2024 NEPHRECTOMY Left 2006 [facility] OTHER SURGICAL HISTORY [...] Amairani Coronary artery disease Father age 50 [place] - smoker Coronary artery disease Brother Kaiden age 47 [place] Objective: BP 107/67 (BP Location: Right arm, Patient Position: Sitting, BP Cuff Size: Large adult) Pulse 90 Temp 36.7 C (98.1 F) (Temporal) Ht 5' 5 (1.651 m) Wt 213 lb 9.6 oz (96.9 kg) SpO2 93% BMI 35.54 kg/m Physical Exam no acute distress. Well-hydrated. Nonicteric. Moist mucous membranes. Recheck blood pressure 132/74. Pulse in this 80s. Respiratory rate normal. Not air hungry. Neck supple. Normal eardrums. Love postnasal drip. [place] oropharynx otherwise. No JVD or adenopathy of his neck. Heart is regular without ectopy or new murmurs. Lungs are diminished in both bases but no rales egophony or wheezing noted. Abdomen obese and nontender without ascites. Substantial macular rash of his entire chest. No peripheral leg edema. No cyanosis or pallor. documented in this [facility]01-28-2025 Telephone encounter Note* Telephone Encounter - Paige Villalobos RN - 12/06/2024 8:02 AM EST S: Patient's spoke with [facility] nurse regarding sinusitis. B: Onset of symptoms/concern: today A: Patient not present at time of call, Haylie states he still has a fever of 102 (TA), sinus issues, congestion, got antibiotics last Thursday from urgent care on Thursday but it's not helping, requestssame day. R: Same day at [address] Jennings, insurance coverage verified. Reason for Disposition Taking antibiotic > 48 hours (2 days) and fever persists Protocols used: Sinus Infection on Antibiotic Follow-up [id number] Miscellaneous Notes* Telephone Encounter - Paige Villalobos RN - 12/06/2024 8:02 AM EST S: Patient's spoke with [facility] nurse regarding sinusitis. B: Onset of symptoms/concern: today A: Patient not present at time of call, Haylie states he still has a fever of 102 (TA), sinus issues, congestion, got antibiotics last Thursday from urgent care on Thursday but it's not helping, requestssame day. R: Same day at [address] Jennings, insurance coverage verified. Reason for Disposition Taking antibiotic > 48 hours (2 days) and fever persists Protocols used: Sinus Infection on Antibiotic Follow-up [id number] documented in this [facility]01-27-2025 Telephone encounter Note* Telephone Encounter - Demetria Morgan - 12/05/2024 10:08 AM EST Medication name: apixaban (Eliquis) 5 MG tablet Medication dosage: 5 mg (Miligrams Monthly quantity needed: 180 How many day supply requestin days Medication route: oral (PO) Medication administration time(s): 2 times a day (BID) If taking medication PRN, reason for taking medication: N/A If this is a controlled substance do you receive this or any other controlled medication from any other doctor or facility: No Ordering provider: Dr. Jennings Date of last office visit: 10.20.2024 Date of next office visit: 04.20.2025 Date of last refill: (see medication tab): 05.26.2024 Updated/Validated preferred pharmacy: Yes Patient instructed to contact the pharmacy prior to picking up the medication: Yes [id number] Miscellaneous Notes* Telephone Encounter - Demetria Morgan - 12/05/2024 10:08 AM EST Medication name: apixaban (Eliquis) 5 MG tablet Medication dosage: 5 mg (Miligrams Monthly quantity needed: 180 How many day supply requestin days Medication route: oral (PO) Medication administration time(s): 2 times a day (BID) If taking medication PRN, reason for taking medication: N/A If this is a controlled substance do you receive this or any other controlled medication from any other doctor or facility: No Ordering provider: Dr. Jennings Date of last office visit: 10.20.2024 Date of next office visit: 04.20.2025 Date of last refill: (see medication tab): 05.26.2024 Updated/Validated preferred pharmacy: Yes Patient instructed to contact the pharmacy prior to picking up the medication: Yes documented in this [facility]01-24-2025 Evaluation note* Diagnosis Onset Date Resolution Status Admit Date Acute sinusitis acute November 102024 9:31am Hyponatremia resolved December 9:13pm Hypoxia resolved December 14, 2024 9:13pm COPD exacerbation inactive ua y 2024 9:13pm Brain metastasis chronic December 21, 2024 8:47am Cancer of lower lobe of righ t lung chronic December 21, 025 8:47am Cancer of right kidney chronic Fe bruary 2024 8:47am History of primary malignant neoplasm of left kidney chronic December 21, 2024 8:47am Iron deficiency anemia due t o chronic blood loss chronic December 8:47am 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 December 8:47am 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 December 21, 2024 8:47am 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 December 21 8:47am Closed head injury acute January 10, 2025 1:50pm Declining functional status acute January 10, 2025 1:50pm Dehydration acute January 10 1:50pm Brain metastasis chronic January 1:50pm Metastatic renal cell carcin marleen to lung chronic January 10, 2025 1:50pm Acute infective gastroenteritis reso lved January 10, 2025 1:50pm Hypoxemia resolved January 10 1:50pm Shock resolved January 10 1:50pm Brain metastasis chronic February 012024 9:40am Cancer of lower lobe of righ t lung chronic February 01, 2025 9:40am Cancer of right kidney chronic [facility] 2024 9:40am History of primary malignant neoplasm of left kidney chronic February 012024 9:40am Iron deficiency anemia due t o chronic blood loss chronic February 01 9:40am 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 February 01 9:40am 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 February 01, 2025 9:40am 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 February 01, 2025 9:40am Anemia acute February 16 12:53pm Brain metastasis chronic March 15, 2025 9:31am Cancer of lower lobe of righ t lung chronic March 15, 2025 9: 31am Cancer of right kidney chronic Ma y 2024 9:31am History of primary malignant neoplasm of left kidney chronic March 15, 2025 9:31am Iron deficiency anemia due t o chronic blood loss chronic March 15, 2025 9:31am 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 March 15, 2025 9:31am 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 March 15, 2025 9:31am 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 March 15, 2025 9: 31am Dysphagia acute March 21, 2025 4:55pm Hypoxia acute March 21, 2025 4:55pm Pneumonia acute March 21, 2025 4:55pm Cancer of right kidney chronic Ma y 2024 4:55pm [facility] Work Phone: 1(493) 378-784701-24-2025 Evaluation note* Diagnosis Onset Date Resolution Status Admit Date Acute sinusitis acute November 102024 9:31am Hyponatremia resolved December 9:13pm Hypoxia resolved December 14, 2024 9:13pm COPD exacerbation inactive Februar y 2024 9:13pm Brain metastasis chronic December 21, 2024 8:47am Cancer of lower lobe of righ t lung chronic December 21 8:47am Cancer of right kidney chronic Fe bruary 2024 8:47am History of primary malignant neoplasm of left kidney chronic December 21, 2024 8:47am Iron deficiency anemia due t o chronic blood loss chronic December 8:47am 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 December 8:47am 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 December 21, 2024 8:47am 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 December 21 8:47am Closed head injury acute January 10, 2025 1:50pm Declining functional status acute January 10, 2025 1:50pm Dehydration acute January 10 1:50pm Brain metastasis chronic January 1:50pm Metastatic renal cell carcin marleen to lung chronic January 10, 2025 1:50pm Acute infective gastroenteritis reso lved January 10, 2025 1:50pm Hypoxemia resolved January 10 1:50pm Shock resolved January 10 1:50pm Brain metastasis chronic February 012024 9:40am Cancer of lower lobe of righ t lung chronic February 01, 2025 9:40am Cancer of right kidney chronic [facility] 2024 9:40am History of primary malignant neoplasm of left kidney chronic February 012024 9:40am Iron deficiency anemia due t o chronic blood loss chronic February 01 9:40am 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 February 01 9:40am 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 February 01, 2025 9:40am 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 February 01, 2025 9:40am Anemia acute February 16 12:53pm Brain metastasis chronic March 15, 2025 9:31am Cancer of lower lobe of righ t lung chronic March 15, 2025 9: 31am Cancer of right kidney chronic Ma 2024 9:31am History of primary malignant neoplasm of left kidney chronic March 15, 2025 9:31am Iron deficiency anemia due t o chronic blood loss chronic March 15, 2025 9:31am 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 March 15, 2025 9:31am 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 March 15, 2025 9:31am 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 March 15, 2025 9: 31am Dysphagia acute March 21, 2025 4:55pm Hypoxia acute March 21, 2025 4:55pm Nausea & vomiting acute March 4:55pm Pneumonia acute March 21, 2025 4:55pm Cancer of right kidney chronic Ma y 2024 4:55pm [facility] Work Phone: 1(185) 411-980401-24-2025 Evaluation note* Diagnosis Onset Date Resolution Status Admit Date Acute sinusitis acute November 102024 9:31am Hyponatremia resolved December 9:13pm Hypoxia resolved December 14, 2024 9:13pm COPD exacerbation inactive 2024 9:13pm Brain metastasis chronic December 21, 2024 8:47am Cancer of lower lobe of righ t lung chronic December 21, 2 025 8:47am Cancer of right kidney chronic Fe bruary 2024 8:47am History of primary malignant neoplasm of left kidney chronic December 21, 2024 8:47am Iron deficiency anemia due t o chronic blood loss chronic December 8:47am 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 December 8:47am 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 December 21, 2024 8:47am 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 December 21, 2 025 8:47am Closed head injury acute January 10, 2025 1:50pm Declining functional status acute January 10, 2025 1:50pm Dehydration acute January 10 1:50pm Brain metastasis chronic January 1:50pm Metastatic renal cell carcin marleen to lung chronic January 10, 2025 1:50pm Acute infective gastroenteritis reso lved January 10, 2025 1:50pm Hypoxemia resolved January 10 1:50pm Shock resolved January 10 1:50pm Brain metastasis chronic February 012024 9:40am Cancer of lower lobe of righ t lung chronic February 01, 2025 9:40am Cancer of right kidney chronic [facility] 2024 9:40am History of primary malignant neoplasm of left kidney chronic February 012024 9:40am Iron deficiency anemia due t o chronic blood loss chronic February 01, 025 9:40am 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 February 01 9:40am 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 February 01, 2025 9:40am 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 February 01, 2025 9:40am Anemia acute February 16 12:53pm Brain metastasis chronic March 15, 2025 9:31am Cancer of lower lobe of righ t lung chronic March 15, 2025 9: 31am Cancer of right kidney chronic Ma 2024 9:31am History of primary malignant neoplasm of left kidney chronic March 15, 2025 9:31am Iron deficiency anemia due t o chronic blood loss chronic March 15, 2025 9:31am 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 March 15, 2025 9:31am 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 March 15, 2025 9:31am 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 March 15, 2025 9: 31am Dysphagia acute March 21, 2025 4:55pm Hypoxia acute March 21, 2025 4:55pm Nausea & vomiting acute March 4:55pm Pneumonia acute March 21, 2025 4:55pm Cancer of right kidney chronic Ma y 2024 4:55pm Brain metastasis chronic March 10:30am Cancer of lower lobe of righ t lung chronic March 29, 2025 1 0:30am Cancer of right kidney chronic Ma y 2024 10:30am History of primary malignant neoplasm of left kidney chronic March 10:30am Iron deficiency anemia due t o chronic blood loss chronic March 29 10:30am 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 [id number] Miscellaneous Notes* Telephone Encounter - Sierra Hernandez LPN - 12/01/2024 1:20 PM EST Noted. * Telephone Encounter - Kelly Jackman RN - 12/01/2024 12:12 PM EST Reason for Disposition Caller has already spoken with another triager and has no further questions Protocols used: No Contact or Duplicate Contact [id number] * Telephone Encounter - Kelly Jackman RN - 12/01/2024 11:40 AM EST S: spoke with [facility] nurse regarding hives B: Onset of symptoms/concern 3 days ago Decadron 1/4 of 0.5mg A: states Cancer Dr Acevedo at [facility] hs been lowering his Decadron dose and patient has developed hives the past 3 days. Currently taking Decadron 1/4 pill of 0.5mg tablet. Patient c/o itchy hives, cough congestin with green phlegm, temp 101 today. state Benadryl does not work. Relates to taking Sariah and Tylenol at 8a today. states he is having chest pain- from the congestion and shortness of breath. Patient talking in background in full sentences during call. R: Call to office backline- advised to send message to provider and they will have provider call patient back this afternoon. advised of above from office. Advised to take another dose of Tylenol at 12n, continue fluids. Patient understands care advice. No further needs at this time. Patient instructed to call back with new or worsening symptoms. Reason for Disposition Hives have become worse and taking oral steroids (e.g., prednisone) > 24 hours Protocols used: [id number] documented in this [facility]01-23-2025 Telephone encounter Note* Telephone Encounter - Kelly Jackman RN - 12/01/2024 12:12 PM EST Reason for Disposition Caller has already spoken with another triager and has no further questions Protocols used: No Contact or Duplicate Contact [id number] [facility] [id number] Telephone encounter Note* Telephone Encounter - Kelly Jackman RN - 12/01/2024 11:40 AM EST S: spoke with [facility] nurse regarding hives B: Onset of symptoms/concern 3 days ago Decadron 1/4 of 0.5mg A: states Cancer Dr Acevedo at [facility] hs been lowering his Decadron dose and patient has developed hives the past 3 days. Currently taking Decadron 1/4 pill of 0.5mg tablet. Patient c/o itchy hives, cough congestin with green phlegm, temp 101 today. state Benadryl does not work. Relates to taking Sariah and Tylenol at 8a today. states he is having chest pain- from the congestion and shortness of breath. Patient talking in background in full sentences during call. R: Call to office backline- advised to send message to provider and they will have provider call patient back this afternoon. advised of above from office. Advised to take another dose of Tylenol at 12n, continue fluids. Patient understands care advice. No further needs at this time. Patient instructed to call back with new or worsening symptoms. Reason for Disposition Hives have become worse and taking oral steroids (e.g., prednisone) > 24 hours Protocols used: [id number] [facility] [id number] Telephone encounter Note* Telephone Encounter - Samuel Castillo - 11/21/2024 8:20 AM EST I spoke to patient spouse confirming follow up day times and location [facility]01-13-2025 Miscellaneous Notes* Telephone Encounter - Samuel Castillo - 11/21/2024 8:20 AM EST I spoke to patient spouse confirming follow up day times and location [facility] History of Present illness Narrative* Francois Acevedo MD - 11/18/2024 10:00 AM EST NEUROSURGERY FOLLOW UP OFFICE NOTE Dr. Francois Robin. MD Kristina, FACS Date of visit: November 18, 2024 Patient Name: Mr.Larry Linda Arshad . Date of : 1955 Current Age: [age] year old Sex: male MRN/E# [id number] Last Office Visit: 10/18/2024 CHIEF COMPLAINT: Patient presents with: Established Patient 6 month follow up with MRI brain - brain mets SUBJECTIVE: The patient presents as a follow up with MRI imaging (brain) for evaluation. 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 Kinsey Tao for neurosurgical evaluation. In October 2022 he was foundto have a 1.6 cm enhancing hemorrhagic mass in the left posterior parietal lobe. He underwent SRS (SBRT) to the metastatic lesion at [facility]. Two months following treatment MRI was completed and demonstrated an increase in the size of the enhancing mass without any new lesions noted. Short-term MRIfollow- ups were obtained and continue to show increase in size and vasogenic edema. On 03/19/2023 hesustained a right-sided seizure and was treated medically. [...] taking any seizure medications. Neurologically he was intact. MRI brain from April 2023 showed a mix of necrosis as well as viable tumor. MRI with perfusion was recommended. Once MRI completed it showed evidence of perilesional edema likely to be necrosis rather than recurrent tumor. Attempt to wean him off Decadron was not successful. He sustained a fall in October [address] was suspicious for tumor progression/edema. 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 He continued on Decadron and MRI perfusion was ordered. In November 2023 he reported episodes of dizziness and was taking Decadron 0.5 mg twice daily. MRI showed that the area of concern was suspected to be posttreatment necrosis. No surgical intervention was indicated. It was discussed that unless this becomes a burden surgery is not recommended. Attempted to wean him off Decadron and return in 3 months with MRI brain including perfusion sequence. Prior to his follow-up his contacted the office stating that Kenn developed dizziness and numbness. He was advised to increase Decadron to 0.5 mg twice daily and continue until his follow-up. He was seen in the office on 02/19/2024 and reported that he was doing well. He denied any new or concerning issues. Neurologically he was intact on exam without focal deficit. MRI was reviewed and showed stability of the area that was treated in the left parietal region without evidence of increased blood volume on the perfusion sequence. There was also decreasing flair signals in the left parietal lobe and no new lesions identified. Given that he became symptomatic when attempting to decrease the oral steroid recommendation was to keep him on 0.5 mg twice a day and follow-up in 3 months withrepeat MRI. He was cleared to undergo cervical spine surgery however it was discussed that he would need to have additional steroids in the perioperative period given his extended use of oral steroids. He was last seen on 05/20/2024 where he was doing well overall. He reported intermittent episodes ofdizziness. He continued to be on Decadron 0.5 mg once daily. His MRI showed the area where he was treated in the left temporal region still showed the enhancement as before and we had demonstrated byperfusion that this most likely was a treatment effect. The area was smaller now than on the last scan. Patient still takes half milligram of Decadron daily because every time we had weaned him off the Decadron he complained of symptoms so we put him back on it. He complained of occasional dizziness. No intracranial new lesions were seen. He was recommended to follow up in 6 months with MRI brainto review, prompting his visit today. Today he reports that he always has a slight dizziness. He does note having some numbness / tingling on right side of body that has been ongoing for over year. He is still taking 0.5mg decadron, but would like to get off of it. SYMPTOMS: dizziness PREVIOUS CONSERVATIVE TREATMENTS: Dexamethasone SURGICAL RISK: Smoker: Former Diabetic: No Anticoagulants / Antiplatelets: Eliquis Occupation: N/A PREVIOUS NEUROSURGERY: SURGERY #1: SRS (SBRT) to a solitary metastatic brain tumor on 10/28/2022 at an outside hospital. 1. Left posterior parietal - 2400 cGy in 1 fraction ONCOLOGY TREATMENT TEAM: Primary Cancer: Renal call carcinoma Hematology / Oncology - Dr. Angela Rodriguez - Immunotherapy q 3 weeks Radiation/ Oncology - Dr. Percy Tao ([place]) PAIN EVALUATION No data found in the [...] Current Outpatient Medications Medication Sig Dispense Refill dexAMETHasone (DECADRON) 1 mg tablet Take 0.5 tablets by mouth daily with breakfast. 30 tablet 2 iv contrast (will be provided with radiology [...] contrast administration guidelines link 1 Each 0 omeprazole (PRILOSEC) 20 mg capsule PLEASE SEE ATTACHED FOR DETAILED DIRECTIONS ONETOUCH DELICA PLUS LANCET 33 gauge USE TO TEST BLOOD SUGAR 2 TIMES A DAY ONETOUCH ULTRA2 METER USE TO TEST 2 TIMES DAILY ONETOUCH ULTRA TEST test strip USE TO TEST BLOOD SUGAR 2 TIMES A DAY ALCOHOL PREP PADS as directed. amLODIPine (NORVASC) 10 mg tablet Take 10 [...] Take 40 mg by mouth once daily. No current facility-administered medications for this visit. REVIEW OF SYSTEMS: Review of Systems OBJECTIVE: BP 136/71 Pulse 81 Resp 16 Ht 5' 5 (1.65m) Wt 214 lb 15.2 oz (97.5kg) SpO2 92% BMI 35.77 kg/(m^2). PHYSICAL EXAM: Mental State : Alert, memory function unremarkable. Attention span and concentration Normal for patient's age. Recent and remote memory normal Orientation : Oriented to time place and person Higher Cortical Function : Intact speech and language. Spontaneous speech and comprehension normal.Fund of knowledge intact for pt level of [...] IMAGING: MRI Brain WO/W IVCON performed on 11/11/2024 demonstrates: IMPRESSION: Redemonstrated left periatrial metastatic focus, appearing smaller since 05/17/2024. No new lesions identified. Dictated by : VIKA DON MD ASSESSMENT/PLAN: 1. Secondary malignant neoplasm of brain (HCC) - ICD9: 198.3, ICD10: C79.31 Patient is here for a follow-up visit. He has renal cell carcinoma with metastasis to the brain. Hewas treated with gamma knife for brain metastasis. His last MRI scan was reviewed and the report was also reviewed. The lesion in the left temporoparietal area appears smaller and there is no evidence of increased blood flow to suggest recurrence of tumor. I think the area is showing a treatment effect rather than recurrent tumor. There are no new lesions. Patient is doing well but he is still taking half milligram a day of Decadron because in the past when we wean him off he would have symptoms. His neurological examination today is normal. I recommended to him to take half the dose of the Decadron he is taking now for 1 week and then every other day for 1 week and discontinue. Should he develop any neurological symptoms I told him to call me otherwise we will see him in 6 months from now with an MRI scan of the brain with perfusion sequence. - MRI BRAIN WO/W IVCON - IV CONTRAST (RADIOLOGY PROCEDURE) - NOT ON MAR Francois Acevedo MD FOLLOW UP: 6 months with MRI scan of the brain Please Note: This note has been partially generated using Flypaper, a speech recognition software program, and may contain errors including punctuation, grammar, spelling, gender, and inappropriate words or phrases that pertain to the system. documented in this [facility]25 NoteHNO ID: [id number] Author: FRANCOIS ACEVEDO MD Service: ? Author Type: Physician Type: Progress Notes Filed: 11/18/2024 10:05 Note Text: NEUROSURGERY FOLLOW UP OFFICE NOTE Dr. Francois Acevedo MD, [facility] Date of visit: November 18, 2024 Patient Name: Mr.Larry Linda Arshad . Date of : 1955 Current Age: [age] year old Sex: male MRN/E# [id number] Last Office Visit: 10/18/2024 CHIEF COMPLAINT: Patient presents with: Established Patient 6 month follow up with MRI brain - brain mets SUBJECTIVE: The patient presents as a follow up with MRI imaging (brain) for evaluation. This is a 68-year-old male [...] SRS (SBRT) to the metastatic lesion at [place]. Two months following treatment MRI was completed and demonstrated an increase in thesize of the enhancing mass without any new [...] taking any seizure medications. Neurologically he was intact. MRI brain from April 2023 showed a mix of necrosis as well as viable tumor. MRI with perfusion was recommended. Once MRI completed it showed evidence of perilesional edema likely to be necrosis rather than recurrent tumor. Attempt to wean him off Decadron was not successful. He sustained a fall in October [address] was suspicious for tumor progression/edema. 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 He continued on Decadron and MRI perfusion was ordered. In November 2023 he reported episodes of dizziness and was taking Decadron 0.5 mg twice daily. MRI showed that the area of concern was suspected to be posttreatment necrosis. No surgical intervention was indicated. It was discussed that unless this becomes a burden surgery is not recommended. Attempted to wean him off Decadron and return in 3 months with MRI brain including perfusion sequence. Prior to his follow-up his contacted the office stating that Kenn developed dizziness and numbness. He was advised to increase Decadron to 0.5 mg twice daily and continue until his follow-up. He was seen in the office on 02/19/2024 and reported that he was doing well. He denied any new or concerning issues. Neurologically he was intact on exam without focal deficit. MRI was reviewed and showed stability of the area that was treated in the left parietal region without evidence of increased blood volume on the perfusion sequence. There was also decreasing flair signals in the left parietal lobe and no new lesions identified. Given that he became symptomatic when attempting to decrease the oral steroid recommendation was to keep him on 0.5 mg twice a day and follow-up in 3 months with repeat MRI. He was cleared to undergo cervical spine surgery however it was discussed that he would need to have additional steroids in the perioperative period given his extended use of oral steroids. He was last seen on 05/20/2024 where he was doing well overall. He reported intermittent episodes of dizziness. He continued to be on Decadron 0.5 mg once daily. His MRI showed the area where he was treated in the left temporal region still showed the enhancement as before and we had demonstrated by perfusion that this most likely was a treatment effect. The area was smaller now than on the last scan. Patient still takes half milligram of Decadron daily because every time we had weaned him off the Decadron he complained of symptoms so we put him back on it. He complained of occasional dizziness. No intracranial new lesions were seen. He was recommended to follow up in 6 months with MRI brain to review, prompting his visit today. Today he reports that he always has a slight dizziness. He does note having some numbness / tingli (more content not included)...[facility]01-03-2025 History of Present illness Narrative* Jacqui Moore RT(R) - 11/11/2024 11:00 AM EST Radiology Service Progress Note PATIENT NAME: Kenn Arshad Sr. DATE OF SERVICE: November 11, 2024 TIME: 11:14 AM PATIENT IDENTITY VERIFICATION COMPLETED USING TWO (2) IDENTIFIERS: Name and Date of confirmedby patient verbally. FALL SCREENING: Has the patient had 2 falls in the last year or 1 fall with injury or currently using an Ambulatory Assistive Device (Walker, Cane, Wheelchair, Crutches, etc.)? No PATIENT GENDER DATA: Male PATIENT RELEVANT IMPLANT DATA REVIEWED: Yes PATIENT PRESENTS WITH AN IMPLANTABLE OR ATTACHED TOBACCO SIEVE OPERATOR: No RADIOLOGY DEPARTMENT: MR; Exam(s) Completed: Head: Routine Brain with Perfusion PERIPHERAL IV DATA: Site assessment: Clean,Dry and Intact, Site disposition Discontinued SIGNED BY: RT Nara(Raphael) November 11, 2024 11:14 AM [facility] NoteHNO ID: [id number] Author: JACQUI MOORE RT(R) Service: ? Author Type: Technologist Type: Progress Notes Filed: 11/11/2024 11:15 Note Text: Radiology Service Progress Note PATIENT NAME: Kenn Arshad Sr. DATE OF SERVICE: November 11, 2024 TIME: 11:14 AM PATIENT IDENTITY VERIFICATION COMPLETED USING TWO (2) IDENTIFIERS: Name and Date of confirmed by patient verbally. FALL SCREENING: Has the patient had 2 falls in the last year or 1 fall with injury or currently using an Ambulatory Assistive Device (Walker, Cane, Wheelchair, Crutches, etc.)? No PATIENT GENDER DATA: Male PATIENT RELEVANT IMPLANT DATA REVIEWED: Yes PATIENT PRESENTS WITH AN IMPLANTABLE OR ATTACHED TOBACCO SIEVE OPERATOR: No RADIOLOGY DEPARTMENT: MR; Exam(s) Completed: Head: Routine Brain with Perfusion PERIPHERAL IV DATA: Site assessment: Clean,Dry and Intact, Site disposition Discontinued SIGNED BY: Jacqui Moore, RT(R) November 11, 2024 11:14 [facility]01-03-2025 NoteHNO ID: [id number] Author: MARCY EUGENE RN Service: ? Author Type: Registered Nurse Type: Progress Notes Filed: 11/11/2024 10:55 Note Text: Patient is here for IVAD port flush per [facility] [place] protocol. IVAD is located in right upper chest. Site cleansed with Chloraprep IVAD accessed with a #20 gauge 3/4 non-coring Gripper needle Blood Return: Good Flushed with: 20 ml Normal Saline Non-coring needle left intact for CT. Opsite applied to puncture site. Port site negative for redness, edema or tenderness. Patient tolerated procedure well.[facility]01-03-2025 History of Present illness Narrative* Marcy Eugene RN - 11/11/2024 10:51 AM EST Patient is here for IVAD port flush per [facility] [place] protocol. IVAD is located in right upper chest. Site cleansed with Chloraprep IVAD accessed with a #20 gauge 3/4 non-coring Gripper needle Blood Return: Good Flushed with: 20 ml Normal Saline Non-coring needle left intact for CT. Opsite applied to puncture site. Port site negative for redness, edema or tenderness. Patient tolerated procedure well. documented in this [facility]Children[facility] History of Present illness Narrative* Jacob Jennings DO - 10/20/2024 1:00 PM EST Images from the original note were not included. [address] [facility] [id number] Visit type: Established Patient Reason for Visit: Follow-up (Med check ) Assessment / Plan: Kenn was seen today for follow-up. Diagnoses and all orders for this visit: Essential hypertension (Primary) Comments: Stable, continue amlodipine, carvedilol, and a Apresoline Adenocarcinoma of right lung (HCC) Hypercholesterolemia Comments: Stable, continue Crestor await lab Seizure (HCC) History of pulmonary embolism Comments: Stable, continue Eliquis indefinitely Ex-smoker Hypochromic microcytic anemia Comments: New onset, await upper endoscopy and follow-up with Dr. Chambers on colonoscopy History of colon polyps Comments: follow Up with Dr. Chambers on recommendations for colonoscopy Coronary artery disease involving lac vieux coronary artery of lac vieux heart without angina pectoris Comments: Stable, reviewed recent stress test, echocardiogram, continue all meds as is Other orders - nitroglycerin (Nitrostat) 0.4 MG SL tablet; Place 1 tablet (0.4 mg) under the tongue every 5 minutes as needed for chest pain. - amLODIPine (Norvasc) 10 MG tablet; Take 1 tablet (10 mg) by mouth daily for 180 doses. - carvedilol (Coreg) 25 MG tablet; Take 1 tablet (25 mg) by mouth 2 times daily (with meals). - hydrALAZINE (Apresoline) 50 MG tablet; Take 1 tablet (50 mg) by mouth 2 times daily. - omeprazole (PriLOSEC) [address] capsule; Take 1 capsule (20 mg) by mouth Daily as needed (reflux). 35 Minutes spent on reviewing pertinent history, patient interview, physical exam, discussion of diagnosis and treatment and work-up options. Reviewed his recent cardiac and hematologic workup with he and his . Reviewed recent lab and past colonoscopy and recommended to check with his honey blender on timing of repeat colonoscopy. Subjective: Patient ID: Kenn Arshad is a 69 y.o. male. 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 Has stable coronary disease, hypertension hyperlipidemia and he presents for checkup. Recently had a stress test and echocardiogram that was normal. Overall feeling well. His on Decadron to help suppress to risk for encephalopathy and seizures. History of hyperlipidemia and hypercholesterolemia on that med. Recent lab is pending. Will be getting MRI imaging of his brain for follow-up on cancer in November. Overall he is felt well. Has gained some weight. No new cardiac or pulmonary concerns Review of Systems denies recent earache sore throat or cough. No purulent phlegm. No use of nitro. No wheezing shortness of breath or claudication. Eating well. No heartburn. Of note has developed a hypochromic microcytic indices and is getting upper endoscopy soon by Dr. Chambers. Patient is aware he at colonic polyps 5 years ago and is recommended to have a repeat colonoscopy. He will discuss that with that GI physician. On Eliquis for pulmonary emboli. PSA slightly elevated to 4 but defers recheck until this coming January. No Known Allergies Current Outpatient Medications on File Prior to Visit Medication Sig Dispense Refill apixaban (Eliquis) 5 MG tablet Take 0.5 tablets (2.5 mg) by mouth 2 times daily. 180 tablet 1 dexAMETHasone (Decadron) 1 MG tablet Take 1 mg by mouth 3 times daily. pembrolizumab (Keytruda) 100 MG/4ML chemo injection Infuse 200 mg into a venous catheter. prednisoLONE acetate (Pred-Forte) 1 % ophthalmic suspension Administer 1 drop into the left eye 2 times daily. Refresh Optive Advanced PF 0.5-1-0.5 % solution Administer 1 drop into both eyes 2 times daily. rosuvastatin (Crestor) 40 MG tablet TAKE 1 TABLET BY MOUTH EVERY DAY 90 tablet 1 [DISCONTINUED] amLODIPine (Norvasc) 10 MG tablet Take [...] [DISCONTINUED] omeprazole (PriLOSEC) [address] capsule TAKE 1 CAPSULE (20 MG) BY MOUTH DAILY NEEDED (REFLUX). 90 capsule 1 ipratropium-albuterol (Duo-Neb) 0.5-2.5 mg/3 mL nebulizer solution Inhale 3 mL. (Patient not taking: Reported on 10/20/2024) Lancets (Vision CriticalTouch Delica Plus [id number]) misc USE TO TEST BLOOD SUGAR 2 TIMES A DAY (Patient not taking: Reported on 09/19/2024) Olarkuch Ultra test strip USE TO TEST BLOOD SUGAR 2 TIMES A DAY (Patient not taking: Reported on 09/19/2024) [DISCONTINUED] nitroglycerin (Nitrostat) 0.[address] 0.4 mg under the tongue. No current facility-administered medications on file prior [...] Social History Tobacco Use Smoking status: Former Current packs/day: 0.00 Average packs/day: 1.5 packs/day for 40.1 years (60.2 ttl pk-yrs) Types: Cigarettes Start date: 02/01/1981 Quit date: 03/12/2021 Years since quittin.6 Smokeless tobacco: Never Substance Use Topics Alcohol use: Yes Alcohol/week: 14.0 standard drinks of alcohol Past Surgical History: Procedure Laterality Date ANTERIOR CERVICAL DISCECTOMY W/ FUSION 02/2024 Dr. Sutherland, C3-5 , [place] COLONOSCOPY 02/2019 med- small polyp- due 2023 COLONOSCOPY 2013 [facility] CORONARY ANGIOPLASTY WITH STENT PLACEMENT 1993 LUNG REMOVAL, PARTIAL Right 03/12/2021 [facility] thoractomy NECK SURGERY 03/08/2024 NEPHRECTOMY Left 2005 [place] OTHER SURGICAL HISTORY [...] Amairani Coronary artery disease Father age 50 [place] - smoker Coronary artery disease Brother Kaiden age 47 [place] Objective: BP 134/78 Pulse 77 Temp 37.2 C (99 F) (Temporal) Ht 5' 6 (1.676 m) Wt 219 lb (99.3 kg) SpO2 97% BMI 35.35 kg/m Physical Exam pleasant alert and cooperative. Nonicteric. Normal oropharynx. Bilateral carotid bruits. Recent rotted Dopplers and echocardiogram reviewed. Heart is regular without ectopy. No change in aortic stenotic murmur lungs are clear without rales wheezes or egophony. Abdomen soft obese without pain hepatosplenomegaly or masses. No bruits adenopathy or ascites. Extremities are pink without pallor cyanosis or edema. Pulses are adequate. documented in this [facility]12-12-2024 Instructions* Patient Instructions* Jacob Jennings DO - 10/20/2024 1:00 PM EST Follow up with Dr. Chambers on anemia and upper and lower endoscopy documented in this [place] [id number] Telephone encounter Note* Telephone Encounter - Katie Peck MA - 10/10/2024 3:56 PM EST Recent Visits Date Type Provider Dept 09/19/24 Office Visit Jacob Jennings DO [facility] 04/19/24 Office Visit Jacob Jennings DO [facility] 01/07/24 Office Visit Jacob Jennings DO [facility] 11/24/23 Office Visit Em Philip PA-C [facility] Showing recent visits within past 365 days and meeting all other requirements Future Appointments Date Type Provider Dept 10/20/24 Appointment Jacob Jennings DO [facility] Showing future appointments within next 90 days and meeting all other requirements Requested Prescriptions Pending Prescriptions Disp Refills omeprazole (PriLOSEC) [address] capsule [Pharmacy Med Name: OMEPRAZOLE DR 20 MG CAPSULE] 90 capsule 1 Sig: TAKE 1 CAPSULE (20 MG) BY MOUTH DAILY NEEDED (REFLUX). Provider: Jacob Jennings DO Verified pharmacy: yes Verified day(s) supplied: yes Verified refill(s) needed (previous prescription showing no refills in chart): Yes Have you received any controlled medications from any other provider? N/A Overdue for visit: No If yes - patient scheduled? N/A Most recent labs completed in chart? No None [id number] Miscellaneous Notes* Telephone Encounter - Katie Peck MA - 10/10/2024 3:56 PM EST Recent Visits Date Type Provider Dept 09/19/24 Office Visit Jacob Jennings, DO [facility] 04/19/24 Office Visit Jacob Jennings, DO [facility] 01/07/24 Office Visit Jacob Jennings, DO [facility] 11/24/23 Office Visit Em Philip PA-C [facility] Showing recent visits within past 365 days and meeting all other requirements Future Appointments Date Type Provider Dept 10/20/[address] Jennings DO [facility] Showing future appointments within next 90 days and meeting all other requirements Requested Prescriptions Pending Prescriptions Disp Refills omeprazole (PriLOSEC) [address] capsule [Pharmacy Med Name: OMEPRAZOLE DR 20 MG CAPSULE] 90 capsule 1 Sig: TAKE 1 CAPSULE (20 MG) BY MOUTH DAILY NEEDED (REFLUX). Provider: Jacob Jennings DO Verified pharmacy: yes Verified day(s) supplied: yes Verified refill(s) needed (previous prescription showing no refills in chart): Yes Have you received any controlled medications from any other provider? N/A Overdue for visit: No If yes - patient scheduled? N/A Most recent labs completed in chart? No None documented in this [facility]11-14-2024 Telephone encounter Note* Telephone Encounter - Monalisa Sanford MA - 09/22/2024 4:46 PM EST Rx loaded [id number] Miscellaneous Notes* Telephone Encounter - Monalisa Sanford MA - 09/22/2024 4:46 PM EST Rx loaded documented in this encounterSKettering [facility] [id number] History of Present illness Narrative* Jacob Robin Piperpiper, - 09/19/2024 2:30 PM EST Images from the original note were not included. [facility] - [address] [facility] [address] Visit type: Established Patient Reason for Visit: Other (Boil on left side of collar bone areas neck and left side of head ) and Flu Vaccine (Patient has already received the flu vaccine. Chart has been updated to reflect ) Assessment / Plan: Kenn was seen today for other and flu vaccine. Diagnoses and all orders for this visit: Skin infection (Primary) Comments: Resolving, first-aid care and Keflex Coronary artery disease involving lac vieux coronary artery of lac vieux heart without angina pectoris 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) Comments: Stable, encouragement given. Follow-up with oncology and neurology. Inclusion cyst Comments: Reassurance. Reviewed MRI of the brain from May 2024 and no worrisome pathology Other orders - cephalexin (Keflex) 500 MG capsule; Take 1 capsule (500 mg) by mouth 3 times daily for 10 days. Subjective: Patient ID: Kenn Arshad is a 68 y.o. male. HPI patient presents to discuss a lesion on the anterior lateral of the left side of his neck that has been somewhat itchy and reddened and swollen over the last 5 days. Began with a sense of a bug bite and since then has been slightly irritated and reddened. Review of Systems also concerned about a bump behind his left ear on the occiput. Saw dermatology who thought it was a lipoma. Would like my opinion. It is not terribly tender. It is mobile and not enlarging. MRI of the brain done for his follow-up for his metastatic lung cancer showed no mass lesions a few months ago. No constitutional symptoms. Status post anterior neck fusion several months ago but that incision is clean and dry. This lesion is superior lateral to any incision. Some numbness of his extremities but his strength and proving in no pain to his arms Recent cardiac, hematology and neurosurgery notes reviewed. MRI brain and CT for surveillance purposes being done first of the year. No Known Allergies Current Outpatient Medications on File Prior to Visit Medication Sig Dispense Refill amLODIPine (Norvasc) 10 MG tablet Take 1 tablet (10 mg) by mouth daily for 180 doses. 90 tablet 1 apixaban (Eliquis) 5 MG tablet Take 0.5 tablets (2.5 mg) by mouth 2 times daily. 180 tablet 1 carvedilol (Coreg) 25 MG tablet Take 1 [...] mg) by mouth Daily as needed (reflux). 90capsule 1 pembrolizumab (Keytruda) 100 MG/4ML chemo injection Infuse 200 mg into a venous catheter. Refresh Optive Advanced PF 0.5-1-0.5 % solution Administer 1 drop into both eyes 2 times daily. rosuvastatin (Crestor) 40 MG tablet Take 1 tablet (40 mg) by mouth daily for 180 doses. 90 tablet 1 Lancets (OneTouch Delica Plus [id number]) misc USE TO TEST BLOOD SUGAR 2 TIMES A DAY (Patient not taking: Reported on 09/19/2024) OneTouch Ultra test strip USE TO TEST BLOOD SUGAR 2 TIMES A DAY (Patient not taking: Reported on 09/19/2024) No current facility-administered medications on file prior [...] Social History Tobacco Use Smoking status: Former Current packs/day: 0.00 Average packs/day: 1.5 packs/day for 40.1 years (60.2 ttl pk-yrs) Types: Cigarettes Start date: 02/01/1981 Quit date: 03/12/2021 Years since quittin.5 Smokeless tobacco: Never Substance Use Topics Alcohol use: Yes Alcohol/week: 14.0 standard drinks of alcohol Past Surgical History: Procedure Laterality Date ANTERIOR CERVICAL DISCECTOMY W/ FUSION 02/2024 Dr. Sutherland, C3-5 , [place] COLONOSCOPY 02/2019 [facility]- small polyp- due 2023 COLONOSCOPY 2013 [facility] CORONARY ANGIOPLASTY WITH STENT PLACEMENT 2003 LUNG REMOVAL, PARTIAL Right 03/12/2021 [facility] thoractomy NECK SURGERY 03/08/2024 NEPHRECTOMY Left 2006 [facility] OTHER SURGICAL HISTORY [...] Amairani Coronary artery disease Father age 50 [place] - smoker Coronary artery disease Brother Kaiden age 47 [place] Objective: BP 130/78 (BP Location: Right arm, Patient Position: Sitting, BP Cuff Size: Large adult) Pulse 78 Temp 37.1 C (98.8 F) (Temporal) Ht 5' 5 (1.651 m) Wt 210 lb (95.3 kg) SpO2 95% BMI 34.95kg/m Physical Exam pleasant alert and oriented. Certainly not ill in appearance. There is a 1 cm soft movable subcutaneous lesion on left occipital area. Not indurated red or painful. He has a linear 0.5 cm x 3 cm abrasion with one small pustule in the center with erythema along theanterior lateral aspect of the neck. It is well above the clavicle and not associate with any adenopathy. No supraclavicular masses noted. No mass lesions of the axilla bilaterally. No adenopathy. Heart is regular. Lungs are clear. Abdomen without pain hepatosplenomegaly or masses. EXTR are pink without appreciable edema. documented in this [facility]11-11-2024 Instructions* Patient Instructions* Jacob Jennings DO - 09/19/2024 2:30 PM EST Call with any worsening of this left sided neck lesion. Apply first-aid ointment as directed. documented in this [place] [id number] Telephone encounter Note* Telephone Encounter - Katie Peck MA - 09/16/2024 9:30 AM EST Noted [place] [id number] Miscellaneous Notes* Telephone Encounter - Katie Peck MA - 09/16/2024 9:30 AM EST Noted * Telephone Encounter - Anita Bonilla RN - 09/16/2024 9:13 AM EST S: Patient 's spoke with [facility] nurse regarding an appointment. B: Onset of symptoms about 5 days. A: A lump by his collar bone, is swelling and itching and painful, red, could have pus. R: Appointment scheduled, address given to the patient, instructed to bring photo ID, insurance info and medication list to the appointment. Instructed warm compress, not to squeeze, instructed if sx's change or get worse before appointmentfor Thursday will need seen in for eval. Patient understands care advice. No further needs at this time. Patient instructed to call back with new or worsening symptoms. Reason for Disposition Patient wants to be seen Protocols used: Boil (Skin Abscess)-ADULT-[place] documented in this [facility]11-08-2024 Telephone encounter Note* Telephone Encounter - Anita Bonilla RN - 09/16/2024 9:13 AM EST S: Patient 's spoke with [facility] nurse regarding an appointment. B: Onset of symptoms about 5 days. A: A lump by his collar bone, is swelling and itching and painful, red, could have pus. R: Appointment scheduled, address given to the patient, instructed to bring photo ID, insurance info and medication list to the appointment. Instructed warm compress, not to squeeze, instructed if sx's change or get worse before appointmentfor Thursday will need seen in for eval. Patient understands care advice. No further needs at this time. Patient instructed to call back with new or worsening symptoms. Reason for Disposition Patient wants to be seen Protocols used: Boil (Skin Abscess)-ADULT-[place] [id number] Telephone encounter Note* Telephone Encounter - Clementina HinaStella Vargas - 05/26/2024 10:51 AM EDT Medication name: apixaban (Eliquis) 5 MG tablet Medication dosage: 5 mg (Miligrams Monthly quantity needed: 30 How many day supply requestin days Medication route: oral (PO) Medication administration time(s): Take 0.5 tablets by mouth in the morning and 0.5 tablets in the evening. If taking medication PRN, reason for taking medication: N/A If this is a controlled substance do you receive this or any other controlled medication from any other doctor or facility: N/A Ordering provider: Dr. Sumner Date of last office visit: 04/19/24 Date of next office visit: 10/20/24 Date of last refill: (see medication tab): 05/06/23 Updated/Validated preferred pharmacy: Yes Patient instructed to contact the pharmacy prior to picking up the medication: Yes [id number] Miscellaneous Notes* Telephone Encounter - Clementina Vargas - 05/26/2024 10:51 AM EDT Medication name: apixaban (Eliquis) 5 MG tablet Medication dosage: 5 mg (Miligrams Monthly quantity needed: 30 How many day supply requestin days Medication route: oral (PO) Medication administration time(s): Take 0.5 tablets by mouth in the morning and 0.5 tablets in the evening. If taking medication PRN, reason for taking medication: N/A If this is a controlled substance do you receive this or any other controlled medication from any other doctor or facility: N/A Ordering provider: Dr. Sumner Date of last office visit: 04/19/24 Date of next office visit: 10/20/24 Date of last refill: (see medication tab): 05/06/23 Updated/Validated preferred pharmacy: Yes Patient instructed to contact the pharmacy prior to picking up the medication: Yes documented in this [facility]07-12-2024 History of Present illness Narrative* Francois Acevedo MD - 05/20/2024 10:15 AM EDT NEUROSURGERY FOLLOW UP OFFICE NOTE Dr. Francois Acevedo MD, [facility] Date of visit: May 20, 2024 Patient Name: Mr.Larry Linda Arshad Sr. Date of : 1955 Current Age: [age] year old Sex: male MRN/E# [id number] Last Office Visit: February 19, 2024 CHIEF COMPLAINT: Patient presents with: Established Patient SUBJECTIVE: The patient presents as a follow-up with imaging (MRI B) for evaluation. This is a 68-year-old malewith a PMHx of stage IV renal cell carcinoma (left kidney- 2005), left total nephrectomy, grade III adenocarcinoma of the lung (03/13/2021), s/p right lobectomy with metastasis to the brain (10/2022) who was referred by Dr. Kinsey Tao for neurosurgical evaluation. In October 2022 he was found to have a 1.6 cm enhancing hemorrhagic mass in the left posterior parietal lobe. He underwent SRS (SBRT) to the metastatic lesion at [facility]. Two months following treatment MRI was completed [...] He was seen by an outside neurosurgeon on05/20/2023 however imaging was unable to be reviewed at the time. He followed up with his heme/onc physician Dr. Angela Rodriguez on 05/27/2023 who placed a STAT referral for evaluation with Neurosurgery. He was seen for consult on 05/29/23 and was doing well on oral Decadron. He denied any recurrent seizures and was not taking any seizure medications. Neurologically he was intact. MRI brain from April 2023 showed a mix of necrosis as well as viable tumor. MRI with perfusion was recommended. Once MRI completed it showed evidence of perilesional edema likely to be necrosis rather than recurrent tumor. Attempt to wean him off Decadron was not successful. He sustained a fall in October [address] was suspicious for tumor progression/edema. 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 He continued on Decadron and MRI perfusion was ordered. In November 2023 he reported episodes of dizziness and was taking Decadron 0.5 mg twice daily. MRI showed that the area of concern was suspected to be posttreatment necrosis. No surgical intervention was indicated. It was discussed that unless this becomes a burden surgery is not recommended. Attempted to wean him off Decadron and return in 3 months with MRI brain including perfusion sequence. Prior to his follow-up his contacted the office stating that Kenn developed dizziness and numbness. He was advised to increase Decadron to 0.5 mg twice daily and continue until his follow-up. He was last seen in the office on 02/19/2024 and reported that he was doing well. He denied any new or concerning issues. Neurologically he was intact on exam without focal deficit. MRI was reviewed and showed stability of the area that was treated in the left parietal region without evidence of increased blood volume on the perfusion sequence. There was also decreasing flair signals in the left parietal lobe and no new lesions identified. Given that he became symptomatic when attempting to decrease the oral steroid recommendation was to keep him on 0.5 mg twice a day and follow-up in 3 monthswith repeat MRI. He was cleared to undergo cervical spine surgery however it was discussed that he would need to have additional steroids in the perioperative period given his extended use of oral steroids. Today he states he is overall doing well. He reports episodes of dizziness but this comes and goes. He continues to be on Decadron 0.5 mg once daily. He presents for image review, evaluation and plan of care. SYMPTOMS: Dizziness PREVIOUS CONSERVATIVE TREATMENTS: Dexamethasone SURGICAL RISK: Smoker: Former Diabetic: No Anticoagulants / Antiplatelets: Eliquis Occupation: N/A PREVIOUS SURGERY: SURGERY #1: SRS (SBRT) to a solitary metastatic brain tumor on 10/28/2022 at an outside hospital. 1. Left posterior parietal - 2400 cGy in 1 fraction ONCOLOGY TREATMENT TEAM: Hematology / Oncology - Dr. Angela Rodriguez - Immunotherapy q 3 weeks Radiation/ Oncology - Dr. Percy Tao ([facility]) PAIN EVALUATION No data found in the [...] Current Outpatient Medications Medication Sig Dispense Refill dexAMETHasone (DECADRON) 1 mg tablet Take 0.5 tablets by mouth two times a day with meals. 30 tablet 2 omeprazole (PRILOSEC) 20 mg capsule PLEASE SEE ATTACHED FOR DETAILED DIRECTIONS ONETOUCH DELICA PLUS LANCET 33 gauge USE TO TEST BLOOD SUGAR 2 TIMES A DAY ONETOUCH ULTRA2 METER USE TO TEST 2 TIMES DAILY ONETOUCH ULTRA TEST test strip USE TO TEST BLOOD SUGAR 2 TIMES A DAY ALCOHOL PREP PADS as directed. amLODIPine (NORVASC) 10 mg tablet Take 10 [...] Neurological: Negative for dizziness, seizures, syncope, weakness, light- headedness, numbness (Negative for numbness in extremities.) and headaches. Hematological: Does not bruise/bleed easily. Psychiatric/Behavioral: The patient is not nervous/anxious. Negative for depression. OBJECTIVE: BP 128/71 Pulse 72 Resp 16 Ht 5' 5 (1.65m) Wt 207 lb 14.3 oz (94.3kg) SpO2 95% BMI 34.60 kg/(m^2). PHYSICAL EXAM: Mental State : Alert, memory function unremarkable. Attention span and concentration normal for patient's age. Speech normal, no receptive or expressive speech deficit. Recent and remote memory normal. Orientation : Oriented to person, place and time. Higher Cortical Function : Intact speech and language. Spontaneous speech and comprehension normal.Fund of knowledge intact for pt level of education. Cranial Nerves : II: No visual field cut no blurring, Makes and sustains eye contact III, IV, : Normal, no double vision or drooping. Pupils equal and reactive to light. Extraocularmuscles intact. No nystagmus V: Normal sensation on the face, normal jaw movements VII: No paresis on either side VIII: No gross hearing deficit IX: Good and equal shoulder shrugs XII: Tongue midline, no fasciculations Sensory: SILT. Normal Sensation in upper and lower extremities [...] dorsiflex 5/5 5/5 Ankle Plantar 5/5 5/5 Reflexes : Biceps 2+ 2+ Triceps 2+ 2+ Wrist 2+ 2+ Patellar 2+ 2+ Achilles 2+ 2+ Cerebellar Function : Normal finger to nose. Normal rapid alternating movements. No ataxia. Negative Romberg. Gait and Station: Normal gait. No assistive device usage. Pulmonary: Lungs without cough, audible wheeze. Respirations unlabored. Cardiac: Regular rate and rhythm. No murmer, gallop or rub. IMAGING: MRI brain WO/W IVCON performed on 05/17/2024 demonstrates: IMPRESSION: The previously described metastatic deposit in the left. Frontal white matter has decreased in size. No new lesions identified. 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 Paranasal sinuses redemonstrate extensive chronic inflammatory changes as outlined above. ASSESSMENT/PLAN: 1. Metastatic cancer to brain (HCC) - ICD9: 198.3, ICD10: C79.31 (primary diagnosis) Patient is here for a follow-up visit. He underwent an MRI which I reviewed and I reviewed the report. The area where he was treated in the left temporal region still shows the enhancement as before and we had demonstrated by perfusion that this most likely is a treatment effect. The area is smaller now than on the last scan. Patient still takes half milligram of Decadron daily because every timewe had weaned him off the Decadron he complained of symptoms so we put him back on it. He complainsof occasional dizziness. No intracranial new lesions. I noted on his scan that he has paranasal sinus chronic inflammatory changes and I will bring this to the attention of his PCP to address it. As far as his brain lesion is concerned we will see him in 6 months with an MRI scan including perfusion study. - MRI BRAIN WO/W IVCON - IV CONTRAST (RADIOLOGY PROCEDURE) 2. Secondary malignant neoplasm of brain (HCC) - ICD9: 198.3, ICD10: C79.31 - MRI BRAIN WO/W IVCON - IV CONTRAST (RADIOLOGY PROCEDURE) Francois Acevedo MD FOLLOW UP: Return in about 6 months (around 11/20/2024) for review of MRI. Please Note: This note has been partially generated using Flypaper, a speech recognition software program, and may contain errors including punctuation, grammar, spelling, gender, and inappropriate words or phrases that pertain to the system. documented in this [facility] History of Present illness Narrative* Atif Mchugh RT(R) - 05/17/2024 10:30 AM EDT Radiology Service Progress Note DATE OF SERVICE: May 17, 2024 TIME: 10:55 AM PATIENT IDENTITY VERIFICATION COMPLETED USING TWO (2) STANDARD IDENTIFIERS: Name and Date of confirmed by patient verbally. FALL SCREENING: Has the patient had 2 falls in the last year or 1 fall with injury or currently using an Ambulatory Assistive Device (Walker, Cane, Wheelchair, Crutches, etc.)? 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 EXAM: MRI - CONTRAST TYPE: GROUP II PERIPHERAL IV DATA: Ambulatory: A power injectable PICC was accessed in the Right side. Blood Return, Flushed easily with normal saline, Good Blood Return Post Injection, Flushed with 20 cc saline followed by Heparin 500 units/5 cc, and No Complications RADIOLOGY DEPARTMENT: MR; Exam(s) Completed: Head: Routine Brain SIGNATURE: RT Manny(R) PATIENT NAME: Kenn Arshad . DATE: May 17, 2024 TIME: 10:55 AM documented in this encounterChildren[facility]06-[facility] History of Present illness Narrative* Jacob Jennings DO - 04/19/2024 1:30 PM EDT Images from the original note were not included. [facility] [address] [place] [address] [address] [facility] [id number] Visit type: Established Patient Reason for Visit: 6 Month Follow-up Assessment / Plan: Kenn was seen today for 6 month follow-up. 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 Comments: Improving, follow-up with neurosurgery Actinic keratosis Comments: Stable, cryotherapy done x 3 Coronary artery disease involving [place] coronary artery of [place] heart without angina pectoris Comments: Stable, continue Crestor and hypertensive meds Orders: - Lipid panel; Future - Lipid panel Prostate cancer screening Comments: PSA high normal with recheck 6 months Orders: - PSA Total (Screening); Future - PSA Total (Screening) 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 - carvedilol (Coreg) 25 MG tablet; Take 1 tablet (25 mg) by mouth in the morning and 1 tablet (25 mg) in the evening. Take with meals. - hydrALAZINE (Apresoline) 50 MG tablet; Take 1 tablet (50 mg) by mouth 2 times daily. Subjective: Patient ID: Kenn Arshad is a 68 y.o. male. HPI hypertensive patient with history of coronary disease, and metastatic to the brain, hyperlipidemia and recent anterior cervical spinal discectomy and fusion presents for refill on his blood pressure meds. Blood pressure well at home and perioperatively. Having some postop laryngitis and some numbness of his arms. Getting physical therapy with improvement. Has a lesion on his left ear and he would like me to look at. Has questions on the reasoning to do a colonoscopy. Also needs his ROSE MARY with PSA done as his PSA is slightly elevated to 4.0 in January Review of Systems no use of nitro. No chest pain or dyspnea. No cough PND orthopnea or edema. No recent dysphagia or abdominal pain. Bowels are regular. History of colonoscopy with polypectomy in 2019 but he is deferring that procedure at this time. Questionable of the length of time of Eliquis andhe appears to need indefinitely. Presently taking 2.5 mg twice daily. Compliant with cardiac drugs. No recent seizures. Off anticonvulsants. Rare nocturia postvoid dribbling and no dysuria or hematuria. No Known Allergies Current Outpatient Medications on File Prior to Visit Medication Sig Dispense Refill apixaban (Eliquis) 5 MG tablet Take 0.5 tablets by mouth in the morning and 0.5 tablets in the evening. ipratropium-albuterol (Duo-Neb) 0.5-2.5 mg/3 mL nebulizer solution Inhale 3 mL. nitroglycerin (Nitrostat) 0.[address] 0.4 mg under the tongue. omeprazole (PriLOSEC) [address] capsule Take 1 capsule (20 mg) by mouth Daily as needed (reflux). 90capsule 1 pembrolizumab (Keytruda) 100 MG/4ML chemo injection Infuse 200 mg into a venous catheter. Refresh Optive Advanced PF 0.5-1-0.5 % solution Administer 1 drop into both eyes 2 times daily. rosuvastatin (Crestor) 40 MG tablet Take 1 tablet (40 mg) by mouth daily for 180 doses. 90 tablet 1 [DISCONTINUED] amLODIPine (Norvasc) 10 MG tablet Take [...] mouth 2 times daily. 180 tablet 1 dexAMETHasone (Decadron) 1 MG tablet Take 1 mg by mouth 3 times daily. Lancets ([employer]uch Delica Plus [id number]) misc USE TO TEST BLOOD SUGAR 2 TIMES A DAY OneTouch Ultra test strip USE TO TEST BLOOD SUGAR 2 TIMES A DAY [DISCONTINUED] omeprazole (PriLOSEC) [address] capsule Take 1 capsule (20 mg) by mouth Daily as needed (reflux). 90 capsule 1 No current facility-administered medications on file prior [...] date: 02/01/1981 Quit date: 03/12/2021 Years since quittin.1 Smokeless tobacco: Never Substance Use Topics Alcohol use: Yes Alcohol/week: 14.0 standard drinks of alcohol Past Surgical History: Procedure Laterality Date ANTERIOR CERVICAL DISCECTOMY W/ FUSION 02/2024 Dr. Sutherland, C3-5 , [facility] COLONOSCOPY 02/2019 [facility]- small polyp- due 2023 COLONOSCOPY 2013 [facility] CORONARY ANGIOPLASTY WITH STENT PLACEMENT 2003 LUNG REMOVAL, PARTIAL Right 03/12/2021 [facility]ATS thoractomy NECK SURGERY 03/08/2024 NEPHRECTOMY Left 2005 [facility] OTHER SURGICAL HISTORY [...] Amairani Coronary artery disease Father age 50 [place] - smoker Coronary artery disease Brother Kaiden age 47 [place] Objective: BP 136/76 Pulse 68 Ht 5' 5 (1.651 m) Wt 207 lb (93.9 kg) SpO2 94% BMI 34.45 kg/m Physical Exam Pleasant alert and cooperative. Normal oropharynx. Has an actinic keratosis that is not raised or irregular of the left pinna. No neck masses adenopathy. No change in faint carotid bruits. No thyroidmasses or adenopathy. Heart is rate without new murmurs. No ectopy or gallops. Lungs are diminishedbut clear of rales wheezes or egophony. Abdomen obese without pain hepatosplenomegaly masses bruitsor ascites. No rectal masses. Prostate smooth without nodules. Extremities have no appreciable edema. documented in this [facility]06-07-2024 Telephone encounter Note* Telephone Encounter - Luci Sherie Uribe - 04/15/2024 10:54 AM EDT Medication name: omeprazole (PriLOSEC) [address] capsule Medication dosage: 20 mg (Miligrams Monthly quantity needed: 30 How many day supply requestin days Medication route: oral (PO) Medication administration time(s): as needed (PRN) If taking medication PRN, reason for taking medication: Take 1 capsule (20 mg) by mouth Daily as needed (reflux). If this is a controlled substance do you receive this or any other controlled medication from any other doctor or facility: N/A Ordering provider: Dr. Jennings Date of last office visit: 07/07/24 Date of next office visit: 04/19/24 Date of last refill: (see medication tab): 01/07/24 Updated/Validated preferred pharmacy: Yes Patient instructed to contact the pharmacy prior to picking up the medication[id number] Miscellaneous Notes* Telephone Encounter - Luci Uribe - 04/15/2024 10:54 AM EDT Medication name: omeprazole (PriLOSEC) [address] capsule Medication dosage: 20 mg (Miligrams Monthly quantity needed: 30 How many day supply requestin days Medication route: oral (PO) Medication administration time(s): as needed (PRN) If taking medication PRN, reason for taking medication: Take 1 capsule (20 mg) by mouth Daily as needed (reflux). If this is a controlled substance do you receive this or any other controlled medication from any other doctor or facility: N/A Ordering provider: Dr. Jennings Date of last office visit: 07/07/24 Date of next office visit: 04/19/24 Date of last refill: (see medication tab): 01/07/24 Updated/Validated preferred pharmacy: Yes Patient instructed to contact the pharmacy prior to picking up the medication: Yes documented in this [facility]05-01-2024 Consult note Author Shelley Del Castillo [facility] March 09, 2024 12:23pm Note Date/Time March 09, 2024 12:23p [facility] Medical Records Department [address] [place] [address] Counseling Note - Pharmacy 03/09/24 1219 MR#: [id number] Acct: [id number] Name: KENN ARSHAD Rep #:[id number] : 1955 68 From: Shelley Del Castillo PCP: Dr. Jacob Jennings, DO Status:AD M [facility] has performed discharge medication reconciliation and counseling for this patient. Patient requested meds to beds, This [facility] called retail and requested delivery. 1. ACETAMINOPHEN 500MG PO Q6 x 7 DAYS 2. MELOXICAM 15MG PO DAILY x 7 DAYS 3. METHOCARBAMOL 750MG PO Q8H PRN MUSCLE SPASMS X 7 DAYS 4. OXYCODONE 2.5-5MG PO Q6H PRN PAIN X 5 DAYS 5. SENNA/DOCUSATE 2T PO BID PRN CONSTIPATION 6. RESTART ELIQUIS 03/11 The patient's discharge medication list was reviewed for discrepancies and discrepancies were resolved. The patient was counseled on the following discharge medications and changes in medications for homegoing were reviewed. The Reason for Use, instructions for use, and potential side effects were reviewed for all new medications. The patient's questions regarding all of their medications were answered. The patient was able to verbally demonstrate an understanding of their dischargemedications. Medications at Discharge Home Medications rosuvastatin 40 mg tablet (Crestor) 40 mg PO DAILY CHOLESTEROL 08/18/18 carvedilol 25 mg tablet 25 mg PO BID blood pressure 04/30/21 albuterol sulfate 90 mcg/actuation aerosol inhaler 1 puff inhalation Q6H PRN SOB05/31/21 hydralazine 50 mg tablet 50 mg PO BID diuretic 05/31/21 lidocaine-prilocaine 2.5 %-2.5 % topical cream 1 applic topical ONCE PRN Port access 30 days #30 grams 01/28/22 apixaban 5 mg tablet (Eliquis) 2.5 mg (1/2 x 5 mg) PO BID #60 tabs 07/20/23 amlodipine 10 mg tablet 10 mg PO DAILY Check with primary doctor #90 tabs 08/21/23 ipratropium 0.5 mg-albuterol 3 mg (2.5 mg base)/3 mL nebulization soln 3 ml inhalation Q4H PRN shortness of breath or wheezing #180 mL 09/07/23 dexamethasone 1 mg tablet 0.5 mg PO DAILY 11/18/23 pantoprazole 40 mg tablet,delayed release (Protonix) 40 mg PO BID PRN GERD 12/04/23 pembrolizumab 50 mg intravenous solution 200 mg .Route .COMPLEX 03/01/24 acetaminophen 500 mg tablet 500 mg PO Q6H 7 days #28 tabs 03/09/24 meloxicam 15 mg tablet 15 mg PO DAILY 7 days #7 tabs 03/09/24 methocarbamol 500 mg tablet 750 mg (1.5 x 500 mg) PO Q8H PRN pain/spasms 7 days #28 tabs 03/09/24 oxycodone 5 mg tablet 2.5 - 5 mg (0.5 - 1 x 5 mg) PO Q6H PRN pain 5 days #20 tabs 03/09/24 sennosides 8.6 mg-docusate sodium 50 mg tablet (Stool Softener-Stimulant Laxative) 2 tab PO BID PRN constipation 7 days #28 tabs 03/09/24 03/09/24 1223 <Electronically signed by Shelley Del Castillo> Date _ Shelley Del Castillo Cosigner Signature (if applicable): Date CC: ~ Signed [facility] Work Phone: 1(920) 417-960305-01-2024 Progress note Author Greg Sutherland [facility] March 09, 2024 9:27am Note Date/Time March 09, 2024 9:27am [facility] Medical Records Department [address] [place] [address] Progress Note - Orthopedic 03/09/24 0924 MR#: [id number] Acct: [id number] Name: KENN ARSHAD Rep #:[id number] : 1955 68 From: Greg Sutherland MD PCP: Dr. Jacob Jennings, DO Status:AD M EDGARD Location: MS3 [id number] Subjective Subjective Postop day 1 status post C3-5 ACDF. Doing well. Pain well-controlled. Has ambulated to bathroom with nursing. Denies dysphagia. Objective Data Objective Data Vital Signs: Vital Signs Temp Pulse Resp BP Pulse Ox O2 Del Method O2 Flow Rate 98.5 F 78 18 130/87 H 96 Room Air 2 03/09/24 06:10 03/09/24 08:13 03/09/24 06:10 03/09/24 06:10 03/09/24 06:10 03/09/24 06:10 03/08/24 19:50 Oxygen Flow Rate (L/min) 2 Oxygen Delivery Method Room Air Weight: 211 lb 3.245 oz Body Mass Index (BMI) 35.1 Intake & Output: Intake and Output for Last 24 Hours 03/07/24 03/08/24 03/09/24 23:59 23:59 23:59 Intake Total 619.92 / 859.92 1342.25 / 1342.25 Output Total 350 / 675 325 / 325 Balance 269.92 / 184.92 1017.25 / 1017.25 Lab / Micro Data 03/09/24 06:00 03/09/24 06:00 Labs: Laboratory Results - last 24 hr 03/08/24 10:13: POC Glucose 103 03/09/24 06:00: WBC 8.6, RBC 4.59 L, Hgb 10.5 L, Hct 34.6 L, MCV 75.4 L, MCH 22.9 L, MCHC 30.3 L, RDW Std Deviation 50.0 H, RDW Coeff of Kailey 19.0 H, Plt Count 195, MPV 9.6, Sodium 138, Potassium 4.0, Chloride 111 H, Carbon Dioxide 23.0, Anion Gap 4 L, BUN 17, Creatinine 1.08, Estim Creat Clear Calc 67.71, Est GFR (MDRD) Af Amer 87, Est GFR (MDRD) Non-Af 72, BUN/Creatinine Ratio 15.7, Glucose 167 H, Calcium 8.5 Micro: Microbiology 03/01/24 08:59 Swab (Method) Nasal Screen MRSA/MSSA - Final Radiography Diagnostic Testing: Radiology Impression Cervical Spine X-Ray 03/08/24 11:00 IMPRESSION: Intraoperative digital documentation views. Electronically Signed: Marshall Minaya MD at 15:11 EDT , Physical Exam Narrative Dressing?sanguinous staining noticed. Dressing was changed by nursing late lastnight. I remove the dressing and remove the [place] drain and applied new gauze and Tegaderm dressing. Neurologic evaluation of upper and lower extremity shows 5 x 5 power normal shows normal sensations in all dermatomes. Assessment & Plan Assessment/Plan (1) S/P cervical spinal fusion: PLAN: Plan Postop day 1 status post C3-5 ACDF. PT OT today. Drain removed. Upright x-rays reviewed. Encouraged incentive spirometry. Encouraged upright positioning for better resolution of swelling. Okay to discharge home today once PT cleared. 03/09/24926 <Electronically signed by Greg Sutherland MD> Cosigner Signature (if applicable): CC: ~ Signed [facility] Work Phone: 1(127) 735-540905-01-2024 Progress note Author Antwan Pitts [facility] March 09, 2024 8:29am Note Date/Time March 09, 2024 7:40am [facility] Medical Records Department [address] [place] [address] Progress Note - Hospitalist 03/09/24 0738 MR#: [id number] Acct: [id number] Name: ARSHADKENN Linda Rep #:[id number] : 1955 68 From: Antwan Pitts MD PCP: Dr. Jacob Jennings, DO Status:AD M [facility] Location: [place]3 [id number] Reason for Visit Reason for Visit: Diagnoses Disease of spinal cord, unspecified (03/08/24) Essential (primary) hypertension (03/08/24) Encounter for other preprocedural examination (03/08/24) Subjective Subjective Patient is a 68-year-old gentleman who underwent C3-C5 anterior cervical discectomy and fusion with plate instrumentation on 03/08/[address] Greg Sutherland. Service was consulted to assist with management of patient medical comorbiditie Objective Data Objective Data Vital Signs: Vital Signs Temp Pulse Resp BP Pulse Ox O2 Del Method O2 Flow Rate 98.5 F 78 18 130/87 H 96 Room Air 2 03/09/24 06:10 03/09/24 06:10 03/09/24 06:10 03/09/24 06:10 03/09/24 06:10 03/09/24 06:10 03/08/24 19:50 Oxygen Flow Rate (L/min) 2 Oxygen Delivery Method Room Air Weight: 95.8 kg Body Mass Index (BMI) 35.1 Intake & Output: Intake and Output for Last 24 Hours 03/07/24 03/08/24 03/09/24 23:59 23:59 23:59 Intake Total 619.92 / 859.92 1003.58 / 1003.58 Output Total 350 / 675 325 / 325 Balance 269.92 / 184.92 678.58 / 678.58 Lab / Micro Data 03/09/24 06:00 03/09/24 06:00 Labs: Laboratory Results - last 24 hr 03/08/24 10:13: POC Glucose 103 03/09/24 06:00: WBC 8.6, RBC 4.59 L, Hgb 10.5 L, Hct 34.6 L, MCV 75.4 L, MCH 22.9 L, MCHC 30.3 L, RDW Std Deviation 50.0 H, RDW Coeff of Kailey 19.0 H, Plt Count 195, MPV 9.6, Sodium 138, Potassium 4.0, Chloride 111 H, Carbon Dioxide 23.0, Anion Gap 4 L, BUN 17, Creatinine 1.08, Estim Creat Clear Calc 67.71, Est GFR (MDRD) Af Amer 87, Est GFR (MDRD) Non-Af 72, BUN/Creatinine Ratio 15.7, Glucose 167 H, Calcium 8.5 Micro: Microbiology 03/01/24 08:59 Swab (Method) Nasal Screen MRSA/MSSA - Final Radiography Diagnostic Testing: Radiology Impression Cervical Spine X-Ray 03/08/24 11:00 IMPRESSION: Intraoperative digital documentation views. Electronically Signed: Marshall Minaya MD at 15:11 EDT , Physical Exam Narrative GENERAL: cooperative HEENT: Neck in collar EYES; Anicteric, Normal Conjunctiva NECK; supple, normal thyroid, RESPIRATORY: Diminished to auscultation CARDIOVASCULAR: Regular S1 S2, GI: soft, normoactive bowel sounds, : No Renal angle tenderness; EXTREMITIES: No edema, no clubbing, MUSCULOSKELETAL: no muscle wasting NEURO: Awake; no lateralizing signs. SKIN: No Rash PSYCH; Flat affect Assessment & Plan Assessment/Plan (1) Essential hypertension: (2) Cervical myelopathy: PLAN: Plan Patient is a 68-year-old gentleman who underwent C3-C5 anterior cervical discectomy and fusion with plate instrumentation on 03/08/[address] Greg Sutherland. Service was consulted to assist with management of patient medical comorbidities 1. 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 Patient postoperative orders regarding pain management, PT OT and DVT prophylaxis deferred to primary service 2.History of left renal cell carcinoma ? With mets to lung and adrenal gland and brain patient is being followed by Dr.Isckarus Miller with oncology as outpatient. Patient renal cell carcinoma treated with nephrectomy. Also had lobectomy for the mets to the lung as well as radiation therapy to the mets to the brain. 3. Hypertension - Blood pressure controlled, home medications continued with dose adjustment as needed 4. Dyslipidemia -Patient is on statin therapy, continued at home dose 5. GERD ? On PPI 6. Coronary artery disease ? With previous stent placement 7. History of right lower lobe nonocclusive PE ? Patient is on apixaban. Decision to resume defer to Ortho 8. DVT prophylaxis ? Bilateral SCDs for now Time spent in the patient's overall evaluation,decision-making process, review of diagnostic data, adjustment of management, discussion with other providers, nursing nursing and ancillary staff involved in patient's care documentation, 35Minutes Charges/Coding Visit Charges Inpatient E&M: 14464 Subs Hosp L2 03/09/24 0829 <Electronically signed by Antwan Pitts MD> Cosigner Signature (if applicable): CC: ~ Signed [facility] Work Phone: 1(344) 920-426804-30-2024 Consult note Author Antwan Epps [facility] March 08, 2024 7:31pm Note Date/Time March 08, 2024 4:2 1pm [facility] Medical Records Department [address] [place] [address] Consultation - Hospitalist 03/08/24 1608 MR#: [id number] Acct: [id number] Name: KENN ARSHAD Rep #:[id number] : 1955 68 From: Antwan Baron DO PCP: Dr. Jacob Jennings, DO Status:AD M [facility] Location: MS3 [id number] Assessment & Plan Assessment/Plan (1) Essential hypertension: (2) Cervical myelopathy: PLAN: Plan 1. 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 2. History of tobacco abuse; with subsequent COPD and history of RLL lobectomy - Stable with no evidence of flare. Continue as needed nebulizers. 3. History of Left renal cell carcinoma; with metastases to lung, adrenal glandand brain - Noted. 4. Essential hypertension - Continue home medications as previous plus give as needed IV hydralazine for systolic blood pressure greater than 160 mmHg. 5. Hyperlipidemia - Resume statin. 6. Obesity; with BMI of 35.1 this admission - Weight loss will be recommended. 7. CAD; status post stent (2002) - Stable. Home regimen to continue. 8. Chronic anemia - Stable. 9. GERD - Resume PPI. 10. Osteoarthritis - Stable. Give Tylenol as needed. 11. History of COVID-19 - Noted. 12. DVT prophylaxis - As per orthopod. Total time: Approximately 35 minutes. 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 Sutherland with a preoperative diagnosis of C3-C5 disc degeneration and stenosis with myelopathy that was treated with a C3-C5 anterior cervical discectomy and fusion with plate instrumentation in an effort to halt progression of his myelopathy. The patienttolerated procedure well and there were postoperative orders for hospitalist consultation for medical management. There is no report of fever, chills, nausea, vomiting or other significant complaints at this time. Thank you for allowing us to participate in care of your patient. [facility] Medical History Abnormal colonoscopy Adenocarcinoma of right lung Anemia Atherosclerotic heart disease of [place] coronary artery without angina pectoris 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 Cardiology follow-up encounter Cervical spinal cord injury Cervical stenosis of spine Contact with or suspected exposure to other viral communicable disease COPD (chronic obstructive pulmonary disease) COPD (chronic obstructive pulmonary disease) COVID-19 Diabetes mellitus, type 2 Diarrhea Duodenal ulcer Dyspnea Elevated troponin (05/15/21) Encephalopathy (05/15/21) Encounter for immunotherapy Encounter for immunotherapy Epistaxis Essential (primary) hypertension Former smoker Frequent headaches Gastric reflux History of echocardiogram History of edema History of pain when walking History of primary malignant neoplasm of left kidney History of steroid therapy Hx of radiation therapy Hyperglycemia Hyperlipidemia Hypokalemia Hyponatremia Imbalance Iron deficiency anemia due to chronic blood loss Low iron 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 Nonrheumatic aortic (valve) stenosis with insufficiency Numbness in right leg Pneumonia Port-A-Cath in place Pulmonary emboli RUE numbness Seizure (05/15/21) Seizures Shortness of breath on exertion Sinus congestion Skin cancer Thrombocytopenia Wears dentures Wears glasses Home Medications rosuvastatin 40 mg tablet (Crestor) 40 mg PO DAILY CHOLESTEROL 08/18/18 [History Last Taken 03/07/24] carvedilol 25 mg tablet 25 mg PO BID blood pressure 04/30/21 [History Last Taken 03/08/24] albuterol sulfate 90 mcg/actuation aerosol inhaler 1 puff inhalation Q6H PRN SOB05/31/21 [History Last Taken 06/12/21] hydralazine 50 mg tablet 50 mg PO BID diuretic 05/31/21 [History Last Taken 03/08/24] lidocaine-prilocaine 2.5 %-2.5 % topical cream 1 applic topical ONCE PRN Port access 30 days #30 grams 01/28/22 [Rx Last Taken Unknown] apixaban 5 mg tablet (Eliquis) 2.5 mg (1/2 x 5 mg) PO BID #60 tabs 07/20/23 [Rx Last Taken 02/29/24] amlodipine 10 mg tablet 10 mg PO DAILY Check with primary doctor #90 tabs 08/21/23 [Rx Last Taken 03/08/24] ipratropium 0.5 mg-albuterol 3 mg (2.5 mg base)/3 mL nebulization soln 3 ml inhalation Q4H PRN shortness of breath or wheezing #180 mL 09/07/23 [Rx Last Taken Unknown] dexamethasone 1 mg tablet 0.5 mg PO DAILY 11/18/23 [History Last Taken 03/08/24 07:00] pantoprazole 40 mg tablet,delayed release (Protonix) 40 mg PO BID PRN GERD 12/04/23 [History Last Taken 03/08/24] pembrolizumab 50 mg intravenous solution 200 mg .Route .COMPLEX 03/01/24 [History Last Taken Unknown] Allergy/AdvReac Type Severity Reaction Status Date / Time No Known Allergies Allergy Verified 03/08/24 10:02 Family History Sister Diabetes CAD (coronary artery disease) Mother CVA (cerebral vascular accident) CAD (coronary artery disease) Lung cancer Father CAD (coronary artery disease) Brother CAD (coronary artery disease) Surgical History History of cataract surgery History of coronary angioplasty (01/05/04) History of coronary artery stent placement (07/17/03) History of lobectomy of lung History of nephrectomy, left Social History Smoking Status: Former smoker Tobacco: How many years used: 40 second hand exposure: No alcohol intake: current alcohol intake frequency: a few times a month Alcohol type: beer substance use type: does not use seatbelt use: always do you feel safe at home: Yes ROS ROS Narrative Review of systems: General: Patient denies fever or chills. HENT: Denies headache, denies stuffy nose, denies sore throat EYES: Denies changes in vision or discharge from eyes. Resp: Denies cough, denies shortness of breath Cardiac: Denies chest pain, palpitations or heart racing. GI: Denies abdominal pain, denies changes in bowel, denies nausea or vomiting. : Denies changes in urination Extremity: Denies swelling Musculoskeletal: Feels somewhat generally weak and unwell but denies arthralgiasor myalgias. Neuro: Patient denies headache or focal neurologic weakness. Heme: Denies any bleeding or bruising Skin: Denies rashes Psychiatric: No complaints voiced related to uncontrolled depression or anxiety. Endocrine: No polyuria, polydipsia or polyphagia. The rest of the 14 point ROS was negative except for positives in HPI. Physical Exam Const alert, oriented x3, no apparent distress and average body habitus General Appearance: cooperative HEENT normocephalic, head/scalp atraumatic, hearing grossly normal bilaterally and moist oral mucous membranes Eyes PERRL and EOMs intact bilaterally Neck Neck Narrative: Patient has cervical collar in place after recent cervical spine fusion. Resp normal respiratory effort, no retractions, no use of accessory muscles and clearto auscultation bilaterally Resp Narrative: Port in place in right upper chest. Cardio regular rate and regular rhythm GI normal to inspection, nondistended, normoactive bowel sounds, soft to palpation,non-tender and non-distended Extremity normal to inspection and full ROM Skin Skin Narrative: Patient has no evidence of abscess, rash or jaundice. Neuro oriented x3, CN's II-XII intact bilaterally, moves all extremities, no focal motor deficits and no sensory deficits noted Sensorium / Orientation: awake, alert, oriented to person, oriented to place andoriented to time Speech: speech normal Psych affect normal Medical Records Data Attestation: I reviewed the patient's medical records Lab / Micro Data Attestation: I reviewed the patient's lab results. Labs: Laboratory Results - last 24 hr 03/08/24 10:13: POC Glucose 103 Imaging Radiology Impression Cervical Spine X-Ray 03/08/24 11:00 IMPRESSION: Intraoperative digital documentation views. Electronically Signed: Marshall Minaya MD at 15:11 EDT Reading Location ID and State: [address] [place] [address] , Service support , Charges/Coding Visit Charges Office Visits / Consults: 85671 IP Consult L2 03/08/241930 <Electronically signed by Antwan Covington DO> Cosigner Signature (if applicable): CC: Dr. Greg Sutherland MD; Dr. Jacob Jennings DO~ Signed [facility] Work Phone: 1(611) 587-244404-30-2024 Procedure [facility] 03-08-2024 History and physical note Author Greg Sutherland [facility] March 08, 2024 10:43am Note Date/Time March 08, 2024 10: 43am [facility] Medical Records Department [address] [place] [address] History & Physical Exam 03/08/24 1043 MR#: [id number] Acct: [id number] Name: KENN ARSHAD Rep #:[id number] : 1955 68 From: Greg Sutherland MD PCP: Dr. Jacob Jennings DO Status:[facility] Location: [place] [address] History and Physical Date of Admission: 03/08/24 MR#: [id number] Acct: [id number] Name: KENN ARSHAD Rep #: [id number] : 1955 Provider: Dr. Greg Sutherland MD Age/Sex: 68/M Location: [facility] Status: Signed Intake Vital Signs 02/09/2411:42 Height 5 ft 5 in Intake Visit Reasons: cervical spine Accompanied by: Is patient in pain?: No Allergies No Known Allergies Allergy (Verified 03/01/24 09:27) Medications rosuvastatin 40 mg tablet (Crestor) 40 mg PO DAILY CHOLESTEROL 08/18/18 [History Confirmed 03/01/24] carvedilol 25 mg tablet 25 mg PO BID blood pressure 04/30/21 [History Confirmed 03/01/24] albuterol sulfate 90 mcg/actuation aerosol inhaler 1 puff inhalation Q6H PRN SOB05/31/21 [History Confirmed 03/01/24] hydralazine 50 mg tablet 50 mg PO BID diuretic 05/31/21 [History Confirmed 03/01/24] lidocaine-prilocaine 2.5 %-2.5 % topical cream 1 applic topical ONCE PRN Port access 30 days #30 grams 01/28/22 [Rx Confirmed 03/01/24] apixaban 5 mg tablet (Eliquis) 2.5 mg (1/2 x 5 mg) PO BID #60 tabs 07/20/23 [Rx Confirmed 03/01/24] amlodipine 10 mg tablet 10 mg PO DAILY Check with primary doctor #90 tabs 08/21/23 [Rx Confirmed 03/01/24] ipratropium 0.5 mg-albuterol 3 mg (2.5 mg base)/3 mL nebulization soln 3 ml inhalation Q4H PRN shortness of breath or wheezing #180 mL 09/07/23 [Rx Confirmed 03/01/24] dexamethasone 1 mg tablet 0.5 mg PO DAILY 11/18/23 [History Confirmed 03/01/24] pantoprazole 40 mg tablet,delayed release (Protonix) 40 mg PO BID PRN GERD 12/04/23 [History Confirmed 03/01/24] pembrolizumab 50 mg intravenous solution mg .Route 03/01/24 [History Confirmed 03/01/24] [facility] Medical History Abnormal colonoscopy Adenocarcinoma of right lung Anemia Atherosclerotic heart disease of [place] coronary artery without angina pectoris 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 Cardiology follow-up encounter Cervical spinal cord injury Cervical stenosis of spine Contact with or suspected exposure to other viral communicable disease COPD (chronic obstructive pulmonary disease) COPD (chronic obstructive pulmonary disease) COVID-19 Diabetes mellitus, type 2 Diarrhea Duodenal ulcer Dyspnea Elevated troponin (05/15/21) Encephalopathy (05/15/21) Encounter for immunotherapy Encounter for immunotherapy Epistaxis Essential (primary) hypertension Former smoker Frequent headaches Gastric reflux History of echocardiogram History of edema History of pain when walking History of primary malignant neoplasm of left kidney History of steroid therapy Hx of radiation therapy Hyperglycemia Hyperlipidemia Hypokalemia Hyponatremia Imbalance Iron deficiency anemia due to chronic blood loss Low iron 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 Nonrheumatic aortic (valve) stenosis with insufficiency Numbness in right leg Pneumonia Port-A-Cath in place Pulmonary emboli RUE numbness Seizure (05/15/21) Seizures Shortness of breath on exertion Sinus congestion Skin cancer Thrombocytopenia Wears dentures Wears glasses Surgical History History of cataract surgery History of coronary angioplasty (01/05/04) History of coronary artery stent placement (07/17/03) History of lobectomy of lung History of nephrectomy, left Family History Sister Diabetes CAD (coronary artery disease)Mother CVA (cerebral vascular accident) CAD (coronary artery disease) Lung cancerFather CAD (coronary artery disease)Brother CAD (coronary artery disease) Social History Smoking Status: Former smoker Tobacco: How many years used: 40 second hand exposure: No alcohol intake: current alcohol intake frequency: a few times a month Alcohol type: beer substance use type: does not use seatbelt use: always do you feel safe at home: Yes HPI cervical spine Details: This documentation accurately reflects the service provided and the decisions made by me, Dr. Greg Sutherland MD 03/01/24 0924. Part of today?s visit was documented by Sherry ALONSO , acting as scribe. KENN ARSHAD is a 68 year old M here today for a pre-op. Patient is having a Anterior Cervical disc Fusion C3-4,C4-5 on 03/08/24. Patient is still numbness in his fingers. Kenn continues to have severe numbness in his right upper and right lower extremities. He is here for his preop visit. His A1c from last week was 5.6. Following his his previous history: 02/25/24: KENN ARSHAD is a 68 year old M here today for neck pain. He would like to discuss surgery today. He states that his neck pain and numbness down the right side has gotten worse. Pt. states that he had an MRI on 02/15/24 at [facility] in [place] of his brain. Kenn Is here for follow-up. He was seen by me abouta month ago and has found that he has worsening numbness into his right upper and right lower extremities has significantly worsened since he last saw me.Is looking forward to schedule surgery. He is on Keytruda, oral steroids and Eliquis. His recent follow-up with his neurosurgeon regarding his brain lesion was encouraging as this lesion has not worsened in his most recent MRI. Following his his previous history: 01/15/24: KENN ARSHAD is a 68 year old M here today for evaluation of right sided bilateral upper and low extremity numbness. He denies any neck or back pain. He states this has been going on since October when he fell. He fell because of lower extremity weakness. He did not seek medical care after his fall. He landed on his right side and states he fell on his shoulder. He states the numbness has progressively been getting worse. He denies any surgery to his neck and back. He has not done PT and has never seen pain management. Kenn denies any axial neck pain or radicular symptoms. He also does not have any back pain. He has had a long history with oncology which started with finding of lung carcinoma which was treated with resection, and then he had a finding ofmetastasis to the brain which was treated with steroids, and then likely tumor in the left kidney which was removed with nephrectomy, and also has a lesion in the right kidney now for which she is being treated with Keytruda which is immunotherapy. He also underwent radiation for the brain malignancy about a year ago which shows just a single time episode. He had a fall in October and he fell towards the right shoulder. Since then he has had numbness in the rightupper and right lower extremities. He is also noticed some stumbling balance but does not seem to be bothered by it significantly. He denies any dexterity issues or dropping things from his hand. He is a diabetic with last A1c of 7.4 in the chart from April 2023. Ortho Exam General General: Yes no acute distress Neurologic: Yes alert and Yes oriented x3 Spine SPINE TESTING CERVICAL THORACIC LUMBAR Musculoskeletal Strength 0=absent - 5=normal Details: Examination of the neck shows no tenderness. Neurologic motion upper and lower extremity shows 5 x 5 power in all muscles normal sensations in all dermatomes. Matt's is positive. Knee reflexes are brisk. Romberg's is positive. Gait shows imbalance. No clonus. Coding Level of Care Code Off vis,est,level 4 Diagnoses Cervical myelopathy G95.9 Time Spent (min) 35 Assessment and Plan Assessment and Plan (1) Cervical myelopathy: Status: Acute Plan I again reviewed his x-rays and MRI done recently. X-rays and MRI of cervical spine show multilevel disc degeneration especially between C3-4, C4-5 and C5-6 with disc height loss, retrolisthesis and vacuum phenomenon. At C3-4 there is severe cord compression with cord signal changes. Moderate stenosis noticed at C4-5 and mild at C5-6. Thoracic MRI does not show any cord compression. No obvious spinal lesions suspected of malignancy or metastasis have been reported on MRIs. I again explained to him the imaging findings in detail. Explained to him that cord compression and myelomalacia indicative of cervical myelopathy. He has developed balance issues and hyperreflexia suggestive of myelopathy. This may overlap with some of the symptoms that may be associated with the brain lesion with metastasis. If the brain lesion has improved with time, per patient's own report, it is likely that the cervical cord compression is causing him the residual balance issues. If there is progression of his balance and dexterity issues, the cervical lesion may benefit from cervical decompression surgery. Patient however has multiple medical issues and is on medical treatment with Keytruda, oral steroids, Eliquis, all of which would need to be temporarily stopped prior to any cervical spine surgery can be contemplated. Patient wishes to proceed with surgery. C3-5 ACDF was discussed in detail. Explained to him the surgery would halt the progression of myelopathy but he still might have some residual symptoms. Patient has certainly shown progression over the last few weeks of right upper extremity and right lower extremity numbness. All risk benefits and alternatives of the surgery was discussed in detail. The risks include but are not limited to infection, bleeding, hematoma formation, injury to nerves and vessels, dysphagia, dysphonia, need for the surgery, spinal cord injury, nerve root injury, persistent weakness, persistent numbness, adjacent segment degeneration, pseudoarthrosis, hardware failure, pneumonia, atelectasis, DVT, pulmonary embolism, need for ICU, need for ventilator, stroke, cardiopulmonary event. Patient would like to omit his next dose of Keytruda on Thursday so he can schedule surgery on an urgent basis. He will also stop Eliquis perioperatively. All restrictions after surgery were discussed in detail. Patient was in agreement. Consent was signed. 03/08/24 1043 <Electronically signed by Greg Sutherland MD> Cosigner Signature (if applicable): CC: Dr. Greg Sutherland MD; Dr. Jacob Jennings DO~ Signed [facility] Work Phone: 1(475) 920-542304-12-2024 History of Present illness Narrative* Francois Acevedo MD - 02/19/2024 10:30 AM EDT NEUROSURGERY FOLLOW UP OFFICE NOTE Dr. Francois Acevedo MD, FACS Date of visit: February 19, 2024 Patient Name: Mr.Larry Linda Arshad . Date of : 1955 Current Age: [age] year old Sex: male MRN/E# [id number] Last Office Visit: November 17, 2023 CHIEF COMPLAINT: Patient presents with: Established Patient SUBJECTIVE: The patient presents as a follow-up with imaging (MRI B) for evaluation. This is a 68-year-old malewith a PMHx of stage IV renal cell carcinoma (left kidney- 2005), left total nephrectomy, grade III adenocarcinoma of the lung (03/13/2021), s/p right lobectomy with metastasis to the brain (10/2022) who was referred by Dr. Kinsey Tao for neurosurgical evaluation. In October 2022 he was found to have a 1.6 cm enhancing hemorrhagic mass in the left posterior parietal lobe. He underwent SRS (SBRT) to the metastatic lesion at [place]. Two months following treatment MRI was completed [...] He was seen by an outside neurosurgeon on05/20/2023 however imaging was unable to be reviewed [...] Neurologically he was intact on exam without focaldeficit. MRI brain from April 2023 was reviewed and showed a mix of necrosis as well as viable tumor. MRI with perfusion was recommended prior to determining a treatment plan. Once MRI completed it was discussed that there was evidence perilesional edema that appeared to likely be necrosis rather than recurrent tumor. He was advised to decrease the Decadron slowly and follow up with repeat MRI at the end of June 2023. He was then seen routinely for evaluation with imaging and an attempt to wean him off Decadron was not successful. He sustained a fall in October 2023 and while at an outside ED CT of the head was completed and was suspicious for tumor progression/edema followed by an MRI which was inconclusive regarding radiation necrosis versus pseudo progression. Decadron was adjusted and MRI with perfusion study was obtained. He was last seen in the office on 11/17/2023 and reported continued episodes of dizziness, especiallyafter taking Decadron. He denied any new issues otherwise. He continued to take Decadron 0.5 mg twice daily. Neurologically he was intact on exam without focal deficits. He denied headache, dizziness, speech difficulty, visual field deficits or facial weakness. MRI was reviewed and the area of concern was suspected to most likely be posttreatment necrosis. No surgical intervention was indicated given that the lesion was in his dominant hemisphere and he was neurologically intact. It was discussed that unless this becomes a burden surgery is not recommended. Recommendation was to decrease the Decadron to 0.5 mg once daily and follow-up in 3 months with MRI brain including perfusion sequence. Prior to his follow-up his contacted the office stating that Kenn had developed dizziness andnumbness. He was advised to increase Decadron to 0.5 mg twice daily and continue until his follow-up prompting his visit today. Since last visit he states he is overall doing well. He denies any new or concerning issues since last visit. He presents for image review, evaluation and plan of care. SYMPTOMS: None PREVIOUS CONSERVATIVE TREATMENTS: Dexamethasone SURGICAL RISK: Smoker: Former Diabetic: No Anticoagulants / Antiplatelets: Suziequis Occupation: N/A PREVIOUS SURGERY: SURGERY #1: SRS (SBRT) to a solitary metastatic brain tumor on 10/28/2022 at an outside hospital. 1. Left posterior parietal - 2400 cGy in 1 fraction ONCOLOGY TREATMENT TEAM: Hematology / Oncology - Dr. Angela Rodriguez Radiation/ Oncology - Dr. Percy Tao ([facility]) PAIN EVALUATION No data found in the [...] Current Outpatient Medications Medication Sig Dispense Refill omeprazole (PRILOSEC) 20 mg capsule PLEASE SEE ATTACHED FOR DETAILED DIRECTIONS ONETOUCH DELICA PLUS LANCET 33 gauge USE TO TEST BLOOD SUGAR 2 TIMES A DAY ONETOUCH ULTRA2 METER USE TO TEST 2 TIMES DAILY ONETOUCH ULTRA TEST test strip USE TO TEST BLOOD SUGAR 2 TIMES A DAY dexAMETHasone (DECADRON) 1 mg tablet Take 1 tablet by mouth three times daily. 30 tablet 0 amLODIPine (NORVASC) 10 mg tablet Take 10 [...] contrast administration guidelines link 1 Each 0 ALCOHOL PREP PADS as directed. No current facility-administered medications for this visit. [...] for urinary incontinence and urinary retention. Musculoskeletal: Positive for arthralgias. Negative for back pain, joint swelling, myalgias and neck pain. Skin: Negative for rash (Negative for hives and skin lesions.). Allergic/Immunologic: Negative for environmental allergies and food allergies. Negative for contact allergy, seasonal allergies. Neurological: Negative for dizziness, seizures, syncope, weakness, light- headedness, numbness (Negative for numbness in extremities.) and headaches. Hematological: Does not bruise/bleed easily. Psychiatric/Behavioral: The patient is not nervous/anxious. Negative for depression. OBJECTIVE: BP 123/68 Pulse 81 Resp 16 Ht 5' 5 (1.65m) Wt 212 lb 15.4 oz (96.6kg) SpO2 93% BMI 35.44 kg/(m^2). PHYSICAL EXAM: Mental State : Alert, memory function unremarkable. Attention span and concentration normal for patient's age. Speech normal, no receptive or expressive speech deficit. Recent and remote memory normal. Orientation : Oriented to person, place and time. Higher Cortical Function : Intact speech and language. Spontaneous speech and comprehension normal.Fund of knowledge intact for pt level of education. Cranial Nerves : II: No visual field cut no blurring, Makes and sustains eye contact III, IV, : Normal, no double vision or drooping. Pupils equal and reactive to light. Extraocularmuscles intact. No nystagmus V: Normal sensation on the face, normal jaw movements VII: No paresis on either side VIII: No gross hearing deficit IX: Good and equal shoulder shrugs XII: Tongue midline, no fasciculations Sensory: SILT. Normal Sensation in upper and lower extremities [...] 2+ Patellar 2+ 2+ Achilles 2+ 2+ Cerebellar Function : Normal finger to nose. Normal rapid alternating movements. No ataxia. Negative Romberg. Gait and Station: Normal gait. No assistive device usage. Pulmonary: Lungs without cough, audible wheeze. Respirations unlabored. Cardiac: Regular rate and rhythm. No murmer, gallop or rub. IMAGING: MRI brain WO/W IVCON (perfusion) performed on 02/15/2024 demonstrates: IMPRESSION: 1. Overall fairly stable examination with similar to slightly reduced size of the left periatrial enhancing lesion and no evidence of increased blood volume on perfusion imaging. 2. Interval decrease in surrounding FLAIR signal change in the left parietal lobe 3. No new lesions identified ASSESSMENT/PLAN: 1. Metastatic cancer to brain (HCC) - ICD9: 198.3, ICD10: C79.31 Patient is here for a follow-up visit. He has metastatic renal cell carcinoma that was managed at [facility] and we are following him for post treatment edema around the area of the tumor and presently is on half milligram Decadron twice a day because every time we put him on half milligram once a day his would call us and tell us that he is quite dizzy and then he improves after we resumed the dose. My plan is to keep him on the half milligram twice a day until we see him next time in 3 months with an MRI scan. His present MRI scan is showing stability of the area that was treatedin the left parietal region out evidence of increased blood volume on the perfusion sequence. Thereis also decreasing FLAIR signals in the left parietal lobe and no new lesions identified. The patient tells me he is going to undergo surgery on his cervical spine and his surgeon wanted clearance. He is cleared from the neurosurgery standpoint to undergo this operation however he needs to have additional steroids in the perioperative time because he has been on steroids for a long time. - MRI BRAIN WO/W IVCON - IV CONTRAST (RADIOLOGY PROCEDURE) Francois Acevedo MD FOLLOW UP: Return in about 3 months (around 05/20/2024) for review of MRI. Please Note: This note has been partially generated using Flypaper, a speech recognition software program, and may contain errors including punctuation, grammar, spelling, gender, and inappropriate words or phrases that pertain to the system. documented in this encounterChildren'S [facility]04-08-2024 History of Present illness Narrative* Yahaira Smith RT(R) - 02/15/2024 10:30 AM EDT Radiology Service Progress Note DATE OF SERVICE: February 15, 2024 TIME: 10:28 AM PATIENT IDENTITY VERIFICATION COMPLETED USING TWO (2) STANDARD IDENTIFIERS: Name and Date of confirmed by patient verbally. FALL SCREENING: Has the patient had 2 falls in the last year or 1 fall with injury or currently using an Ambulatory Assistive Device (Walker, Cane, Wheelchair, Crutches, etc.)? No PATIENT GENDER DATA: Male PATIENT RELEVANT IMPLANT DATA REVIEWED: Yes PATIENT PRESENTS WITH AN IMPLANTABLE OR ATTACHED TOBACCO SIEVE OPERATOR: No ALLERGIES: Reviewed and unchanged CONTRAST ALLERGY: NO. EXAM: MRI - CONTRAST TYPE: GROUP II PERIPHERAL IV DATA: Ambulatory: A peripheral IV was started in the Right hand with a Angio cath: 20gauge. RADIOLOGY DEPARTMENT: MR; Exam(s) Completed: Head: Routine Brain with Perfusion SIGNATURE: RT Jordon(R) PATIENT NAME: Kenn Arshad . DATE: February 15, 2024 TIME: 10:28 AM documented in this encounterChildren'S [facility]03-01-2024 Telephone encounter Note * Telephone Encounter - Celsa Yoder - 01/08/2024 9:17 AM EST Referral pended for doctor's signature [id number] Miscellaneous Notes* Telephone Encounter - Celsa Yoder - 01/08/2024 9:17 AM EST Referral pended for doctor's signature documented in this encounterSKettering Health Washington [id number] History of Present illness Narrative* Jacob Jennings, DO - 01/07/2024 2:00 PM EST Images from the original note were not included. [facility] [address] [facility] [id number] Visit type: Established Patient Reason [...] - Lipid panel Coronary artery disease involving lac vieux coronary artery of lac vieux heart without angina pectoris Comments: Stable, continue [...] and work-up options. Subjective: Patient ID: Kenn Arsahd is a 68 y.o. male. HPI hypertensive [...] showed stable metastatic disease in his brain. Willbegin a recheck study in February. No recent [...] Had an asymptomatic pulmonary embolism per CT ofthe chest in April of last year when he was admitted for pneumonia. Currently on taking Eliquis halfa tablet twice a day due to cost [...] Inhale 3 mL. Lancets (OneTouch Delica Plus [id number]) [facility] USE TO TEST BLOOD SUGAR 2 TIMES A DAY nitroglycerin (Nitrostat) 0.[address] 0.4 mg under the tongue. Vision CriticalTouch Ultra test strip USE TO TEST BLOOD [...] this for 180 doses. (Patient taking differently: Take20 mg by mouth Daily as needed.) 180 [...] Amairani Coronary artery disease Father age 50 [place] - smoker Coronary artery disease Brother Kaiden age 47 [place] Objective: BP 122/60 Pulse 77 Temp 37.6 [...] normal without focal deficits. documented in this [facility]02-29-2024 History of Present illness Narrative* Jacob Jennings DO - 01/07/2024 2:00 PM EST Images from the original note were not included. [facility] [address] [place] [address] [address] [facility] [phone] Visit type: Established Patient Reason [...] - Lipid panel Coronary artery disease involving lac vieux coronary artery of lac vieux heart without angina pectoris Comments: Stable, continue [...] and work-up options. Subjective: Patient ID: Kenn Arshad is a 68 y.o. male. HPI hypertensive [...] showed stable metastatic disease in his brain. Willbegin a recheck study in February. No recent [...] Had an asymptomatic pulmonary embolism per CT ofthe chest in April of last year when he was admitted for pneumonia. Currently on taking Eliquis halfa tablet twice a day due to cost [...] mL nebulizer solution Inhale 3 mL. Lancets (Olarkuch Delica Plus Adhudk67N) [facility] USE TO TEST BLOOD SUGAR 2 TIMES A DAY nitroglycerin (Nitrostat) 0.[address] 0.4 mg under the tongue. Olarkuch Ultra test strip USE TO TEST BLOOD [...] this for 180 doses. (Patient taking differently: Take20 mg by mouth Daily as needed.) 180 [...] Amairani Coronary artery disease Father age 50 [place] - smoker Coronary artery disease Brother Kaiden age 47 [place] Objective: BP 122/60 Pulse 77 Temp 37.6 [...] normal without focal deficits. documented in this [facility]02-29-2024 Miscellaneous Notes* Addendum Note - Rosina Connor - 01/07/2024 2:00 PM ESTAddended by: ROSINA CONNOR on: 01/09/2024 10:26 AM Modules accepted: Orders documented in this [facility]02-29-2024 Note* Addendum Note - Rosina Connor - 01/07/2024 2:00 PM ESTAddended by: ROSINA CONNOR on: 01/09/2024 10:26 AM Modules accepted: Orders [id number] History of Present illness Narrative* Em Philip PA-C - 11/24/2023 3:20 PM EST Images from the original note were not included. [facility] [address] [facility] [address] Dept: [phone] Dept Loc: [phone] Visit type: Established Patient Reason for Visit: [...] was dressed with bacitracin and nonadhesive dressing. Xin wrap was applied over the nonadhesive dressing [...] currently anticoagulated with Eliquis who contacted the [facility] for immediate same-day appointment evaluation for concerns that he has had 3 nosebleeds and having a difficult time getting the bleeding under control. Although he states when he called he was not actively having any bleeding. Patient states he had problems before heis to see an environmental research scientist at [facility] it has been sometime he is to [...] by mouth in the morning and 1 capsule(20 mg) in the evening. Do all this [...] 0.1 % cream Lancets (OneTouch Delica Plus [id number]) [facility] USE TO [facility] BLOOD SUGAR 2 TIMES [...] polyps 12/[address] Ramírez, [facility] also H/O colonoscopy 02/2019 [facility]- small polyp- due 2023 History of colon polyps 2000 [facility] History of renal carcinoma 07/[address] Tariq History of SCC (squamous cell carcinoma) of skin 2011 scalp - [facility] [employer] Hypercholesterolemia LDL PAD (peripheral artery disease) (HCC) 07/2019 Rt worse than Lt, pt defering angiogram rec per Dr. 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 Cuevas, [facility], [facility] oncologist Social History Tobacco Use Smoking status: Former Packs/day: 1.5 Types: Cigarettes Start date: 02/01/1981 Quit date: 03/12/2021 Years since quittin.7 Smokeless tobacco: Never Substance Use Topics Alcohol use: Yes Alcohol/week: 14.0 standard drinks of alcohol Past Surgical History: Procedure Laterality Date COLONOSCOPY 02/2019 [facility]- small polyp- due 2023 COLONOSCOPY 2013 [facility] CORONARY ANGIOPLASTY WITH STENT PLACEMENT 2003 LUNG [...] Amairani Coronary artery disease Father age 50 [place] - smoker Coronary artery disease Brother Kaiden age 47 [place] Objective BP 138/64 (BP Location: Left arm, [...] the right side however there is no signsof active bleeding there is no signs of [...] Data Reviewed and Summarized Labs: Imaging/Testing: Em Philip PA-C 11/24/2023 Please note that portions of this note may have been completed with voice recognition software. Documentation reviewed prior to signing but minor errors in car icer may have occurred. documented in this [facility]01-16-2024 Telephone encounter Note* Telephone Encounter - Merlene Andino RN - 11/24/2023 12:25 PM EST S: Patient spoke with [facility] nurse regarding nose bleeds B: Onset of symptoms/concern unknown A: Pt endorses daily nose bleeds for awhile, unable to state time frame. Has had [...] known bleeding disorder (e.g., thrombocytopenia) Protocols used: [id number]-AETOC-VV [id number] Miscellaneous Notes* Telephone Encounter - Merlene Andino RN - 11/24/2023 12:25 PM EST S: Patient spoke with [facility] nurse regarding nose bleeds B: Onset of symptoms/concern unknown A: Pt endorses daily nose bleeds for awhile, unable to state time frame. Has had [...] known bleeding disorder (e.g., thrombocytopenia) Protocols used: Eonhwcntg-KNMLD-UK documented in this [facility]12-11-2023 NoteHNO ID: [id number] Author: Carin Neri RT(R) Service: Radiology Author [...] SIGNATURE: Jasmeet Oates RT(R) PATIENT NAME: Kenn Arshad Sr. DATE: October 19, 2023 TIME: 7:02 PMMarietta Osteopathic [id number] History of Present illness Narrative* Carin Neri RT(R) - 10/19/2023 6:40 PM EST Radiology Service Progress Note DATE OF SERVICE: [...] Cane, Wheelchair, Crutches, etc.)? Yes, Patient High Riskfor Falls What interventions were put in place [...] MR; Exam(s) Completed: Head: Routine Brain SIGNATURE: Jasemet Oates RT(R) PATIENT NAME: Kenn Arshad Sr. DATE: October 19, 2023 TIME: 7:02 PM documented in this encounterChildren'S Hospital [facility]12-11-2023 Miscellaneous Notes* Telephone Encounter - Rose Troncoso - 10/19/2023 3:41 PM EST After speaking with patient's , I noticed [facility] (where is was scheduled for MRI on 10/26), had an MRI opening tonight and one tomorrow as well. Called and discussed with patient and hiswife. They opted to take the appointment tonight. I rescheduled appointment and told them I'd stillbe in touch tomorrow after speaking with Kesha or Dr. Acevedo. They were appreciative. * Telephone Encounter - Rose Troncoso - 10/19/2023 3:28 PM EST Patient's , Haylie, called in reporting that patient fell on 10/13. Since the fall he complains of some numbness in his extremities as well as some confusion. He was seen in the ED at [facility]. They did a CT scan (I called and requested it be pushed to [facility] for us to review). Patient is scheduled for follow up MRI on 10/[address] Acevedo on 10/30, but Haylie is askingif patient should be seen sooner due to new symptoms. I let her know I would discuss with Dr. Acevedo's nurse practitioner, Kesha, and get back to her as soon as I am able. She was appreciative. documented in this encounterChildren'S [facility]10-31-2023 Miscellaneous Notes* Telephone Encounter - Samuel Castillo - 09/08/2023 12:42 PM EDT I called and spoke to patients regarding the message that was left for patients meds. The patients understood documented in this encounterChildren'S [facility]10-31-2023 Miscellaneous Notes* Telephone Encounter - Kesha Dey APRN.CNP - 09/08/2023 8:58 AM EDT Returned call to patient's spouse Haylie. Left a voice message regarding resuming Decadron. Discussed that Kenn should resume 0.5 mg twice daily x1 week and then he should take 0.5 mg once a day thereafter until we see him back in the office as scheduled. I told her to please feel free to contact my direct office phone with any questions or concerns. KALEY Hurtado Neurosurgery Nurse Practitioner [facility] 8:59 AM 09/08/2023 documented in this encounterChildren'S Hospital [facility]10-26-2023 Miscellaneous Notes* Telephone Encounter - Kesha Dey APRN.CNP - 09/03/2023 12:43 PM EDT Received a call from the patient's Haylie. She reported that Kenn was diagnosed with pneumonia and placed on oral prednisone by his forensic economist. She was wondering if he should continue takingthe prescribed dexamethasone with the prednisone or not. I returned the call to Kenn and spoke with him. I told him to please stop the dexamethasone while taking the prednisone. He was uncertain of the dosage but believes he will be on it for 5 days. I told him I will discuss this with Dr. Boswell and contact him with further instructions regarding resuming dexamethasone or not. KALEY Hurtado Neurosurgery Nurse Practitioner [facility] 12:44 PM 09/03/2023 documented in this encounterChildren'S Hospital [facility]10-17-2023 Miscellaneous Notes* Telephone Encounter - Kesha Dey APRN.CNP - 08/25/2023 1:12 PM EDT Spoke to patient via phone. States he is tolerating Decadron 0.5 mg BID. I discussed this with Dr. Acevedo who said that Kenn should stay on this dosage for now. KALEY Hurtado Neurosurgery Nurse Practitioner [facility] 1:13 PM 08/25/2023 documented in this encounterChildren'S Hospital [facility]10-10-2023 Miscellaneous Notes* Telephone Encounter - Kesha Dey APRN.CNP - 08/18/2023 11:51 AM EDT Contacted the patient and his via phone [...] questions and concerns were addressed in detail. Kesha Dey APRN-THANH Neurosurgery Nurse Practitioner [facility] 11:55 AM 08/18/2023 documented in this encounterChildren'S [facility]10-06-2023 Miscellaneous Notes* Telephone Encounter - Samuel Castillo - 08/14/2023 11:05 AM EDT I returned patients vm and confirmed follow up phone appt on 08/18/23 at 9:30 am documented in this encounterChildren'S [facility]09-29-2023 History of Present illness Narrative* Francois Acevedo MD - 08/07/2023 10:30 AM EDT NEUROSURGERY FOLLOW UP OFFICE NOTE Dr. Francois Acevedo MD, FACS Date of visit: August 07, 2023 Patient Name: Mr.Larry Linda Arshad . Date of : 1955 Current Age: [age] year old Sex: male MRN/E# [id number] Last Office Visit: 06/09/2023 CHIEF COMPLAINT: Patient presents with: Established Patient SUBJECTIVE: The patient presents as a follow up with imaging (MRI B) for evaluation. This is a 67-year-old malewith a PMHx of stage IV renal cell carcinoma (left kidney- 2005), left total nephrectomy, grade III adenocarcinoma of the lung (03/13/2021), s/p right lobectomy with metastasis to the brain (10/2022) who was referred by Dr. Kinsey Tao for neurosurgical evaluation. He was seen for consult on 05/29/2023 and reported a history of metastatic cancer as noted above. InD2021 he was found to have a 1.6 cm enhancing hemorrhagic mass in the left posterior parietal lobe. He underwent SRS (SBRT) to the metastatic lesion consisting of 2400 cGy in 1 fraction at [facility]. Two months following treatment repeat MRI of the brain was completed and demonstrated an increase in the size of the enhancing mass without any new lesions noted. This was expected to be treatment related. Short-term MRI follow- ups were obtained and continue to show increase [...] up with his heme/onc physician Dr. Angela Rodrgiuez on 05/27/2023 who placed a STAT referral for evaluation with Neurosurgery. He was seen on 05/29/23 and was doing well on Decadron 2 mg once daily. He denied any seizures sinceMay 2022 and was not taking any seizure medications. [...] cataract surgery on Thursday. He denies any furthersymptoms at this time. He presents for image [...] Angela Rodriguez - Hematology / Oncology Dr. Percy Tao - Radiation/ Oncologist ([facility]) PAIN EVALUATION No data found in the [...] DROP IN SURGICAL EYE 4 TIMES DAILY STARTING2 DAYS PRIOR TO SURGERY ONETOUCH DELICA PLUS [...] speech and language. Spontaneous speech and comprehension normal.Fund of knowledge intact for pt level of [...] parietal trigonal area that was treated at [facility] withSRS and presently is on decreasing Decadron. He switched from 3 mg total a day to 2 mg total a day.His neurological examination is normal and his MRI [...] IVCON - IV CONTRAST (RADIOLOGY PROCEDURE) Francois Acevedo MD FOLLOW UP: Return in about 1 week (around 08/14/2023) for call with how he feels with reduction of steroids in 1 week. Please Note: This note has been partially generated using Flypaper, a speech recognition software program, and may contain errors including punctuation, grammar, spelling, gender, and inappropriate words or phrases that pertain to the system. documented in this encounterChildren'S Hospital [facility]09-26-2023 NoteHNO ID: [id number] Author: Carin Neri RT(R) Service: Radiology Author [...] Brain SIGNATURE: RT Karis(R) PATIENT NAME: Kenn Arshad . DATE: August 04, 2023 TIME: 10:56 AMMarietta Osteopathic [id number] Miscellaneous Notes* Telephone Encounter - Kesha Dey APRN.[facility] - 07/07/2023 1:10 PM EDT Contacted patient and spouse via phone. Mr. Arshad is feeling much better since resuming Dexamethasone 1 mg PO TID. Discussed with Dr. Acevedo who recommends continuing the medication until his scheduled follow up. New Rx sent to pharmacy on file. KALEY Hurtado Neurosurgery Nurse Practitioner [facility] 1:12 PM 07/07/2023 documented in this encounterChildren'S Hospital [facility]08-25-2023 Miscellaneous Notes* Telephone Encounter - Kesha Dey APRN.CNP - 07/03/2023 1:03 PM EDT Returned call to patients spouse. She reported that Kenn completed his Decadron taper 2 days ago and since he has developed headaches and dizziness. Discussed with Dr. Acevedo who advised resuming the oral steroid. Take 4 mg now then 1 mg PO TID thereafter. We will reach out to the patient and/or his spouse early next week, Thursday, via phone for an update. All of her questions and concerns were addressed in detail. KALEY Hurtado Neurosurgery Nurse Practitioner [facility] 1:05 PM 07/03/2023 documented in this encounterChildren'S Hospital Of [facility]08-01-2023 Instructions* Patient Instructions* Kesha Dey APRN.CNP - 06/09/2023 12:01 PM EDT Decrease Decadron to 1 mg daily for 1 week then, 1/2 mg daily for 1 week then 1/2 mg every other day for 1 week. documented in this encounterChildren'S Hospital [facility]08-01-2023 History of Present illness Narrative* Francois Acevedo MD - 06/09/2023 11:30 AM EDT NEUROSURGERY FOLLOW UP OFFICE NOTE Dr. Francois Acevedo MD, FACS Date of visit: June 09, 2023 Patient Name: Mr.Larry Linda Arshad Sr. Date of : 1955 Current Age: [age] year old Sex: male MRN/E# [id number] Last Office Visit: 05/29/2023 CHIEF COMPLAINT: Patient presents with: Established Patient SUBJECTIVE: The patient presents as a follow up with imaging (MRI B) for evaluation. This is a 67-year-old malewith a PMHx of stage IV renal cell carcinoma (left kidney- 2005), left total nephrectomy, grade III adenocarcinoma of [...] of 2400 cGy in 1 fraction at [facility]. Two months f ollowing treatment repeat MRI of the brain was [...] demonstrate extensive edema but no acute abnormalities. Hewas placed on oral dexamethasone. He underwent a repeat MRI of the brain with perfusion and spectroscopy on 04/16/2023. 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 His oncologist discussed the potential need to have surgical intervention and referred him for aneurosurgical evaluation. He was advised to continue on [...] the brain with perfusion sequence for comparison toprior scan and to follow-up once completed to determine plan of care. Since last visit he states heis overall doing well. He denies any new [...] Angela Rodriguez - Hematology / Oncology Dr. Percy Tao - Radiation/ Oncologist ([facility]) PAIN EVALUATION No data found in the [...] Neurological: Negative for dizziness, seizures, syncope, weakness, light- headedness, numbness (Negative for numbness in extremities.) and [...] speech and language. Spontaneous speech and comprehension normal.Fund of knowledge intact for pt level of education. Cranial Nerves : II: No visual field cut no blurring, Makes and sustains eye contact III, IV, : Normal, no double vision or drooping. Pupils equal and reactive to light. Extraocularmuscles intact. No nystagmus V: Normal sensation on [...] rather than recurrent tumor. In view of thatand the fact that he is asymptomatic I [...] PROCEDURE) - DEXAMETHASONE 1 MG TABLET Francois Acevedo MD FOLLOW UP: Return in about 8 weeks (around 08/06/2023) for review of MRI. Please Note: This note has been partially generated using Flypaper, a speech recognition software program, and may contain errors including punctuation, grammar, spelling, gender, and inappropriate words or phrases that pertain to the system. documented in this [facility]Children[facility]-2023 NoteHNO ID: [id number] Author: Germania Gaines, civil engineering intern Service: Radiology Author Type: Bootmaker Hand Type: Progress Notes Filed: 06/06/2023 11:02 AM [...] Perfusion SIGNATURE: NIURKA Martin PATIENT NAME: Kenn Arshad Sr. DATE: June 06, 2023 TIME: 11:01 AMMarietta Osteopathic [id number] History of Present illness Narrative* Germania Gaines MRI Tech - 06/06/2023 1:20 PM EDT Radiology Service Progress Note DATE OF SERVICE: [...] Cane, Wheelchair, Crutches, etc.)? Yes, Patient High Riskfor Falls What interventions were put in place to prevent falls during this visit? [place] Risk Wristband Applied, Instructed Patient to Call for Help if Needed, Instructed Patient to Remain Seated (Noton Exam Table) Until Exam, and Increased Observations [...] Perfusion SIGNATURE: NIURKA Martin PATIENT NAME: Kenn Arshad Sr. DATE: June 06, 2023 TIME: 11:01 AM documented in this encounterChildren'S [facility]07-19-2023 Miscellaneous Notes* Telephone Encounter - Rose Troncoso - 05/27/2023 12:43 PM EDT Received referral from Dr. Percy Tao at [facility]. Requesting STAT consult for brain mets. Called patient to discuss scheduling, but had to leave a voicemail. Left my direct contact info and asked that he return my call at his earliest convenience. documented in this encounterChildren'S [facility]07-17-2023 Telephone encounter Note * Telephone Encounter - Sol Fofana RN - 05/25/2023 8:52 AM EDT Marichuy called back. Re-read voice mail from Sharmin of Dr Baron's note. Marichuy will call back with any other questions or concerns. [id number] Miscellaneous Notes* Telephone Encounter - Sol Fofana RN - 05/25/2023 8:52 AM EDT Marichuy called back. Re-read voice mail from Sharmin of Dr Baron's note. Marichuy will call back with any other questions or concerns. * Telephone Encounter - Shireen Zamudio MA - 05/22/2023 1:20 PM EDT LM on VM for Marichuy. * Telephone Encounter - Kimberly Owens PA-C - 05/22/2023 11:[address] Baron reviewed the MRI. 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 The patient can follow upwith oncology as recommended by Dr. Fields. * Telephone Encounter - Shireen Zamudio MA - 05/22/2023 9:54 AM EDT LM on Marichuy's VM letting her know that we did receive the mri in pacs. * Telephone Encounter - Shireen Zamudio MA - 05/22/2023 9:26 AM EDT Left message on voicemail asking Marichuy to return my call and left the phone number that I can be reached. * Telephone Encounter - Nicole Morales MA - 05/22/2023 7:57 AM EDT Office received a voicemail from Marichuy at the [facility] stating that they received a phone call from the patient stating that he saw Dr. Fields and his records had not been transferredover for review for his appointment at our office. There is an MRI Brain report from [facility] scanned into media and the fax cover sheet stated that the most recent MRI completed [facility] was pushed through to PACS. Please verify that records were received and images available from PACS and call Marichuy to confirm. Marichuy can be reached at [phone], option 6 documented in this encounterSKettering Health Washington [id number] Telephone encounter Note* Telephone Encounter - Shireen Zamudio MA - 05/22/2023 1:20 PM EDT LM on for Marichuy. [id number] Miscellaneous Notes* Telephone Encounter - Shireen Zamudio MA - 05/22/2023 1:20 PM EDT LM on for Marichuy. * Telephone Encounter - Kimberly Owens PA-C - 05/22/2023 11:[address] Baron reviewed the MRI. 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 The patient can follow upwith oncology as recommended by Dr. Fields. * Telephone Encounter - Shireen Zamudio MA - 05/22/2023 9:54 AM EDT LM on Marichuy's VM letting her know that we did receive the mri in pacs. * Telephone Encounter - Shireen Zamudio MA - 05/22/2023 9:26 AM EDT Left message on voicemail asking Marichuy to return my call and left the phone number that I can be reached. * Telephone Encounter - Nicole Morales MA - 05/22/2023 7:57 AM EDT Office received a voicemail from Marichuy at the [facility] stating that they received a phone call from the patient stating that he saw Dr. Fields and his records had not been transferredover for review for his appointment at our office. There is an MRI Brain report from [facility] scanned into media and the fax cover sheet stated that the most recent [facility] was pushed through to PACS. Please verify that records were received and images available from PACS and call Marichuy to confirm. Marichuy can be reached at [phone], option 6 documented in this [facility] [id number] Telephone encounter Note* Telephone Encounter - Kimberly Owens PA-C - 05/22/2023 11:[address] Baron reviewed the MRI. 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 The patient can follow upwith oncology as recommended by Dr. Fields. [employer] Phone: [phone] Telephone encounter Note* Telephone Encounter - Shireen Zamudio MA - 05/22/2023 9:54 AM EDT LM on Marichuy's VM letting her know that we did receive the mri in pacs. [id number] Telephone encounter Note* Telephone Encounter - Shireen Zamudio MA - 05/22/2023 9:26 AM EDT Left message on voicemail asking Marichuy to return my call and left the phone number that I can be reached. [id number] Telephone encounter Note* Telephone Encounter - Nicole Morales MA - 05/22/2023 7:57 AM EDT Office received a voicemail from Marichuy at the [facility] stating that they received a phone call from the patient stating that he saw Dr. Fields and his records had not been transferredover for review for his appointment at our office. There is an MRI Brain report from [facility] scanned into media and the fax cover sheet stated that the most recent [facility] was pushed through to PACS. Please verify that records were received and images available from PACS and call Marichuy to confirm. Marichuy can be reached at [phone], option 6 ClasesD [id number] History of Present illness Narrative* Pineda Fields MD - 05/20/2023 2:15 PM EDT Patient Name: Kenn Arshad Patient : 1955 PCP: Jacob Jennings DO History of Present Ilness: 67 y.o. presents with report of known brain mass. He reports that he hasrenal cancer and is in chemo treatment for that. He reports that he was diagnosed a few years ago and underwent brain radiation. He states he then had a seizure a few months ago. [facility]. 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 Chief Complaint Patient presents with New Patient Brain lesion Past Medical History: Past Medical History: Diagnosis Date Adenocarcinoma of right lung (HCC) 02/2021 Aortic stenosis, mild 06/2002 Bleeding ulcer Brain lesion CAD (coronary artery disease) [address] Mcguire, neg stress test 08/26 at [facility] COPD (chronic obstructive pulmonary disease) (HCC) per cxr (smoker) COVID-19 virus infection 10/2021 DDD (degenerative disc disease), cervical NSAID therapy Essential hypertension 1993 Ex-smoker for less than 1 year 03/2021 Family history of diabetes mellitus sister Gastric polyps 12/[address] Ramírez, small HH also H/O colonoscopy 02/2019 [facility]- small polyp- due 2023 History of colon polyps 2000 [facility] History of renal carcinoma 07/[address] Tariq History of SCC (squamous cell carcinoma) of skin 2011 scalp - [facility] [employer] Hypercholesterolemia LDL PAD (peripheral artery disease) (HCC) 07/2019 Rt worse than Lt, pt defering angiogram rec per Dr. 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 Cuevas, [facility], [facility] oncologist Past Surgical History: Past Surgical History: Procedure Laterality Date COLONOSCOPY 02/2019 [facility]- small polyp- due 2023 COLONOSCOPY 2013 [facility] CORONARY ANGIOPLASTY WITH STENT PLACEMENT 2003 LUNG [...] mouth 2 times daily for 180 doses. Yes Jacob Jennings DO dexAMETHasone (Decadron) 4 MG tablet Take 4 mg by mouth 2 times daily. 10/23/22 Yes Historical Provider, hydrALAZINE (Apresoline) 50 MG tablet Take 1 tablet (50 mg) by mouth 2 times daily. 12/31/22 06/29/23Yes Jacob Jennings DO nitroglycerin (Nitrostat) 0.4 MG [...] Amairani Coronary artery disease Father age 50 [place] - smoker Coronary artery disease Brother Kaiden age 47 [place] Review of Systems Constitutional: Negative. HENT: Negative. [...] Right achilles: 2+ Left achilles: 2+ Right digital content manager: 2+ Left digital content manager: 2+ Results Labs: Last 24hrs No results [...] was approximately 6 to 7 months ago. 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 Without having any imaging to review it is difficult to know if this is exactly what it is, if it is radiation necrosis it is very unlikely that he needs surgical intervention. Recommend treatment with steroids through his radiation oncologist. If heobtains images for us to review on a disc, we would happy to do so in the future. Diagnosis Plan 1. PRES (posterior reversible encephalopathy syndrome) documented in this [facility]06-28-2023 Discharge summary Author Khalif Quevedo [facility] May 06, 2023 11:23am Note Date/Time May 06, 2023 11:2 3am [facility] Medical Records Department [address] [place] [id number] Discharge Summary 05/06/23 1121 MR#: [id number] Acct: [id number] Name: KENN ARSHAD Rep #:[id number] : 1955 67 From: Khalif Quevedo DO PCP: Dr. Jacob Jennings DO Status:AD M IN Location: [facility] [id number] Providers Date of Admission: 05/02/23 Primary Care Physician: Dr. Jacob Jennings DO Consultations 05/02/23 16:41 Consult: Worship Director / Pulmonary Medicine Routine Consulting Provider: [facility] Reason for Consult: hypoxia/SOB EMERGENT Consult: No Notified: Yes Date Notified: 05/02/23 Time Notified: 17:26 Method of Notification: Text 05/03/23 12:16 Consult: Gastroenterology Routine Consulting Provider: [facility] Reason for Consult: GIB EMERGENT Consult: No MD Notified: Yes Date Notified: 05/03/23 Time Notified: 12:16 Method of Notification: Verbal Reason For Visit: HYPOXIA/SOB Diagnosis Discharge Diagnosis (1) Pneumonitis: Status: Acute Code(s): J18.9 - Pneumonia, unspecified organism Plan: Patient does not meet criteria for acute hypoxic respiratory failure Etiology is unclear: infectious/Keytruda induced pneumonitis/COPD exacerbation Pulm following. Testing: * CT of the chest demonstrated small chronic nonocclusive right lower lobe pulmonary embolus, new 3 mm spiculated right lower lobe nodule and left lower lobe pulmonary nodules measuring 8 mm suspicious for metastasis, progression of mild mediastinal and hilar lymphadenopathy, mild pneumonitis, bronchiectasis * COVID 19 and resp panel negative. SCx pending. BCx negative. Treatment * Continue Levaquin 750 mg daily through the . * IV steroids 40 every 12h and hold home Decadron-Transition back to Decadron at discharge. Steroid taper at discharge. * Aggressive pulmonary toilet: I-S/Acapella * Patient had echocardiogram done on January 13, 2023 that showed an EF of 65% and no evidence of diastolic dysfunction (2) Pulmonary emboli: Status: Acute Code(s): I26.99 - Other pulmonary embolism without acute cor pulmonale Plan: Suspect malignancy-induced Right lower lobe nonocclusive PE Hold anticoagulation--> patient with guaiac positive stool and drop in hemoglobin along with iron deficiency anemia Not likely etiology for acute shortness of breath and hypoxia No signs of cardiac strain Duplex of LE negative If H/H remain stable, could reintroduce anticoagulation. Would not resume until the . (3) Diabetes mellitus, type 2: Status: Acute Code(s): E11.9 - Type 2 diabetes mellitus without complications Plan: Likely steroid-induced Hemoglobin A1c was 7.4 consistent with diabetes Accu-Cheks Sliding scale insulin We will likely plan for diet control at discharge (4) Adenocarcinoma of right lung: Status: Acute Code(s): C34.91 - Malignant neoplasm of unspecified part of right bronchus or lung Plan: Poorly differentiated adenocarcinoma of the lung/metastatic left renal cell carcinoma Left radical nephrectomy 2005January 28, 2021--> Greening CT of chest showed spiculated partially cavitary massin the right lower lobe--> CT-guided biopsy demonstrated moderately to poorly differentiated adenocarcinoma of the lung primary--> March 2021 VATS converted to right muscle-sparing thoracotomy with right lower lobectomy, right upper lobe wedge resection and right middle lobe wedge resection with mediastinal lymph node dissection (positive lymph nodes noted at this time)--> MRI October 2022 showed 1.6 cm enhancing mass in the left posterior parietal lobe concerning for hemorrhagic metastasis and large surrounding edema--> follow-up MRI December 16, 2022 shows increasing size of metastatic mass in the left posterior parietal lobe--> CT of chest abdomen pelvis December 29, 2022 showed persistent solid mass in the lower pole of the right kidney with slight increase in size since August, chronic interstitial changes in both lungs--> follow-up MRI January 2023 shows persistent hemorrhagic metastasis--> follow-up chest abdomen pelvis CT 2022 shows an enlarged right posterior mediastinal lymph node and stable 4.2 cm right renal mass--> MRI brain March 2023 shows doubling in size of mass in the posterior medial aspect of the left parietal lobe with surrounding vasogenic edema that had slightly increased and no further metastatic lesions--> MRI spectroscopy April 16, 2023 showed spectroscopy and perfusion findings medial and dorsal aspects of the treated presumed left parietal metastasis compatible with viable tumor with more extensive surrounding radiation necrosis May 07, 2021 pembrolizumab plus axitinib for metastatic RCC/Axitinib discontinued May 2021 due to hypertensive crisis Keytruda single agent May 07 ?July 30,? 2020 (5 cycles)? [place] but held in August 2021 due to ELANA.? Resumed November 26, 2021 Stereotactic brain radiation at [facility] October 28, 2022 a single fraction with10 MV [address] of chest at this time shows new findings in the lung Follow up neurosurgery as outpt. (5) Anemia: Status: Acute Code(s): D64.9 - Anemia, unspecified Plan: microcytic iron low, ferritin high, however. will change iron to Ferrous sulfate 325 QOD. (6) Duodenal ulcer: Status: Acute Code(s): K26.9 - Duodenal ulcer, unspecified as acute or chronic, without hemorrhage or perforation Plan: Multiple. EGD on 05/04: Visible vessel that was injected. Another w non-bleeding pigmented material that was treated with a heater probe. FLD Pantoprazole gtt for 72h then BID dosing Per GI, sucralfate 1 g TID, misoprostol 200 TID for 4 weeks. BID PPI Plan Chronic conditions: * CAD/hypertension/pqbaxjexwlbmdk-QUU-TRW-LPLB w/ 2.25 x 18 mm Biodivysio Stent x 2, BMS-OM1 w/ 2.25 x 18 mm Biodivysio Stent and 2.25 x 18 mm Pixel Stent and MARVIN- Prox LCx w/ 3.5 x 18 mm Cypher Stent 07/17/2003-Hold home aspirin for now and restart when okay with GI-Continue home amlodipine-continue home carvedilol-Continue home rosuvastatin-Continue home hydralazine * Microcytic anemia-1 g hemoglobin drop overnight-Hold anticoagulation- Consistent with iron deficiency-EGD for tomorrow-IV iron x3 days 200 mg-We will need to discharge on oral iron * Thrombocytopenia-Appears to be chronic and is stable-Likely related to ongoing chemotherapy and cancer treatment-Counts are stable and greater than 100,000 * Aortic valve ftuibfdc-Dvpk-Oe acute issues-Most recent echocardiogram shows stability * COPD-PFTs show only mild large airway obstructive ventilatory defect-O2 dependent at baseline-No exertional hypoxemia noted on 6-minute walk test earlier this year-Continued outpatient follow-up with pulmonary medicine after discharge DVT prophylaxis -Fully anticoagulated with Eliquis CODE STATUS -Full code verified on admission DC home after PPI gtt completed. Medications at Discharge Home Medications aspirin 81 mg tablet,delayed release 81 mg PO DAILY HEART HEALTH 08/18/18 rosuvastatin 40 mg tablet (Crestor) 40 mg PO DAILY CHOLESTEROL 08/18/18 carvedilol 25 mg tablet 25 mg PO BID blood pressure 04/30/21 albuterol sulfate 90 mcg/actuation aerosol inhaler 1 puff inhalation Q6H PRN SOB05/31/21 hydralazine 50 mg tablet 50 mg PO BID diuretic 05/31/21 lidocaine-prilocaine 2.5 %-2.5 % topical cream 1 applic topical ONCE PRN Port access 30 days #30 grams 01/28/22 amlodipine 10 mg tablet 10 mg PO DAILY Check with primary doctor 11/19/22 esomeprazole magnesium 20 mg capsule,delayed release (Nexium) 20 mg PO DAILY #30caps 11/21/22 ipratropium 0.5 mg-albuterol 3 mg (2.5 mg base)/3 mL nebulization soln 3 ml inhalation Q4H PRN shortness of breath or wheezing #180 mL 11/24/22 dexamethasone 4 mg tablet 2 mg PO DAILY steroid 05/02/23 apixaban 5 mg tablet (Eliquis) 5 mg PO BID #60 tabs 05/06/23 ferrous sulfate 325 mg (65 mg iron) tablet (FeroSul) 325 mg PO QODAY@1200 #14 tabs 05/06/23 levofloxacin 750 mg tablet 750 mg PO DAILY@0600 #1 TAB 05/06/23 metformin 500 mg tablet 500 mg PO BID #60 tabs 05/06/23 misoprostol 200 mcg tablet 200 mcg PO TIDCM #84 tabs 05/06/23 pantoprazole 40 mg tablet,delayed release (Protonix) 40 mg PO BID #60 tabs 05/06/23 prednisone 10 mg tablet 10 mg PO DAILY #30 tabs 05/06/23 sucralfate 1 gram tablet 1 g PO TID@0700,1100,1600 4 weeks #84 tabs 05/06/23 Hospital Course Operations None Summary of Care Provided Minutes Spent on Discharge: 35 Hospital Course: Patient presents with hypoxia. [place] to be due to his underlying COPD but also possibility of pneumonitis. Pneumonitis may have been possibly Keytruda induced. Patient was started on methylprednisolone with bronchodilators and levofloxacin., From respiratory standpoint, he has steadily improved. Patient will be discharged with a prednisone taper and then resume his 2 mg of dexamethasone. Patient also had a PE is nonocclusive not felt to be the underlying cause of hisrespiratory distress. Patient was started on apixaban but then was anemic and had heme positive stools. That was held. Patient underwent GI work-up and was found to have duodenal ulcers some bleedingsome not. Those were treated via EGD. Patient will continue with pantoprazole,sucralfate and misoprostol. Patient will hold off on his apixaban until the . Patient also diabetic with an A1c of 7.4. This certainly exacerbated by steroids. Patient will be discharged with metformin and instructed to check hisblood sugar twice daily until things stabilize further. Weight / BMI Weight Weight: 74.843 kg Body Mass Index (BMI) 29.8 ABG / Lab / Microbiology Data 05/06/23 08:05 05/05/23 05:55 Laboratory: Laboratory Results - last 24 hr 05/05/23 05:55: Diff Path Review Reviewed 05/05/23 12:04: POC Glucose 323 H 05/05/23 16:55: POC Glucose 222 H 05/06/23 06:02: POC Glucose 242 H 05/06/23 08:05: WBC 4.6, RBC 4.19 L, Hgb 10.7 L, Hct 32.7 L, MCV 78.0 L, MCH 25.5 L, MCHC 32.7, RDW Std Deviation 48.0 H, RDW Coeff of Kailey 17.2 H, Plt Count 128 L, MPV 8.9, Neut % (Auto) Not Reportable, Absolute Neuts (auto) 3.9, Absolute Lymphs (auto) 0.36 L, Total Counted 100, Neutrophils % (Manual) 84 H, Band Neutrophils % 1, Lymphocytes % (Manual) 8 L, Metamyelocytes % 6 H, Myelocytes % 1 H, Nucleated RBCs/100 WBC 2, Diff Path Review May , Platelet Estimate SLT DEC, RBC Morphology NORM C+C Microbiology: Microbiology 05/03/23 03:50 Sputum, Expectorated/Coughed Gram Stain - Final 05/03/23 03:50 Sputum, Expectorated/Coughed Respiratory Culture - Final Mixed normal respiratory laure. No Streptococcus pneumoniae, beta-hemolytic Streptococcus or Staphylococcus aureus isolated. 05/02/23 11:09 Blood Culture (Wb) #2 - Anticubital Left Blood Culture - Preliminary No growth in 48 hours. 05/02/23 11:05 Blood Culture (Wb) - Port Blood Culture - Preliminary No growth in 48 hours. 05/03/23 06:35 Stool Stool Occult Blood (CRYSTAL) - Final Occult Blood Positive 05/02/23 17:15 Mucosa - Nasopharyngeal Respiratory Panel (PCR) - Final 05/02/23 12:16 Nasal Secretion SARS-CoV-2 Antigen (Rapid) - Final D/C Instructions Call your doctor if you observe: Shortness of breath Meaningful Use Info Meaningful Use Diagnoses (Choose all that apply): None applicable Discharge Plan Admission Admit Date/Time: 05/02/23 15:36 Primary Reason for Your Visit: pneumonitis Attending Provider: Khalif Quevedo Primary Care Provider: Jacob Jennings Consulting Providers: Thaddeus Patel; Benito Malcolm; Tu Zhang; Jm Varner; Monalisa Dunne NP; Tara Mae Instructions Additional Instructions / Restrictions: You presented with what appears to be pneumonitis. Unclear if that may be related with Keytruda or not. He will be on a prednisone taper and after that is completed, resume your dexamethasone (Decadron). He also had GI bleed due toulcers in your duodenum, which is part of your small bowel. You are going to beon pantoprazole (Protonix), sucralfate and misoprostol. The sucralfate and misoprostol will be only for 4 weeks. Also take iron the dosing will be every other day. You are a diabetic and this is certainly exacerbated by the steroids. You will be on medications with metformin. We will recheck her blood sugar at home. I would recommend checking it twice a day in the morning and the evening. Keep a record of that and be able to provide that to your primary care physician to seeif further adjustments would need to be made. He also had a blood clot in your lung. The treatment is for blood thinners but do not start the blood thinner (apixaban) until the . Discharge Orders/Prescriptions Prescriptions: New Eliquis 5 mg Tablet 5 mg PO BID Qty: 60 0RF Rx Instructions: Start 05/08/2023 with 2 tabs twice daily for 5 days, then 1 tab twice daily ferrous sulfate [FeroSul] 325 mg (65 mg iron) Tablet 325 mg PO QODAY@1200 Qty: 14 0RF levofloxacin 750 mg Tablet 750 mg PO DAILY@0600 Qty: 1 0RF Rx Instructions: last dose is 05/07 misoprostol 200 mcg Tablet 200 mcg PO TIDCM Qty: 84 0RF sucralfate 1 gram Tablet 1 g PO TID@0700,1100,1600 28 Days Qty: 84 0RF prednisone 10 mg tablet 10 mg PO DAILY Qty: 30 0RF Rx Instructions: 4 tabs daily for 3 days, then 3 tabs daily for 3 days, then 2 tabs daily for 3 days, then 1 tab daily for 3 days metformin 500 mg tablet 500 mg PO BID Qty: 60 0RF pantoprazole [Protonix] 40 mg tablet,delayed release (DR/EC) 40 mg PO BID Qty: 60 0RF Continued carvedilol 25 mg tablet 25 mg PO BID Rx Instructions: must administer with a meal/food albuterol sulfate 90 mcg/actuation HFA aerosol inhaler 1 puff inhalation Q6H PRN (Reason: SOB) lidocaine-prilocaine 2.5-2.5 % cream 1 applic topical ONCE PRN (Reason: Port access ) 30 Days Qty: 30 2RF ipratropium-albuterol 0.5 mg-3 mg(2.5 mg base)/3 mL solution for nebulization 3 ml inhalation Q4H PRN (Reason: shortness of breath or wheezing) Qty: 180 3RF aspirin 81 MG tablet 81 mg PO DAILY rosuvastatin [Crestor] 40 MG tablet 40 mg PO DAILY amlodipine 10 mg tablet 10 mg PO DAILY esomeprazole magnesium [Nexium] 20 mg capsule,delayed release(DR/EC) 20 mg PO DAILY Qty: 30 0RF hydralazine 50 mg tablet 50 mg PO BID Held dexamethasone 4 mg tablet 2 mg PO DAILY Hold Instructions: Resume on 05/19/23. Patient Comments: TAKE 1 TABLET BY MOUTH TWICE A DAY Rx Instructions: states tapered down from the 4mg dose. Other Ambulatory Orders: Glucometer (Routine) Timeframe: 1 Day Location: Determined by Patient Ordered By: Dr. Khalif Queevdo Referrals / Follow Up: [facility] [Provider Group] - Within 3 Months *[facility] [Provider Group] - Within 2 Weeks [facility] [Provider Group] - 05/21/23 9:15 am Jacob Jennings DO [Primary Care Provider] - Within 2 Weeks Disposition Disposition (needs filled in before D/C Order can be placed): Home, Self Care Charges/Coding Visit Charges Inpatient E&M: 82582 Disch Hosp >30min 05/06/23 1123 <Electronically signed by Khalif Quevedo DO> Cosigner Signature (if applicable): CC: Dr. Khalif Quevedo DO; Dr. Jacob Jennings DO~ Signed [facility] Work Phone: 1(551) 316-726006-28-2023 Discharge summary Author Khalif Quevedo [facility] May 06, 2023 11:21am Note Date/Time May 06, 2023 11:0 5am [facility] Medical Records Department [address] [place] [address] Instructions for Home/Discharge Instructions 05/06/23 1105 MR#: [id number] Acct: [id number] Name: KENN ARSHAD Rep #:[id number] : 1955 67 From: Khalif Quevedo DO PCP: Dr. Jacob Jennings DO Status:AD M IN Discharge Instructions Dressing / Incision Call your doctor if you observe: Shortness of breath Follow Up Care Test Results: Test results from this visit will be discussed in further detail at your follow- up appointment, if applicable. Discharge Plan Admission Admit Date/Time: 05/02/23 15:36 Primary Reason for Your Visit: pneumonitis Attending Provider: Khalif Quevedo Primary Care Provider: Jacob Jennings Consulting Providers: Thaddeus Patel; Benito Malcolm; Tu Zhang; Jm Varner; Monalisa Dunne NP; Tara Mae Instructions Additional Instructions / Restrictions: You presented with what appears to be pneumonitis. Unclear if that may be related with Keytruda or not. He will be on a prednisone taper and after that is completed, resume your dexamethasone (Decadron). He also had GI bleed due toulcers in your duodenum, which is part of your small bowel. You are going to beon pantoprazole (Protonix), sucralfate and misoprostol. The sucralfate and misoprostol will be only for 4 weeks. Also take iron the dosing will be every other day. You are a diabetic and this is certainly exacerbated by the steroids. You will be on medications with metformin. We will recheck her blood sugar at home. I would recommend checking it twice a day in the morning and the evening. Keep a record of that and be able to provide that to your primary care physician to seeif further adjustments would need to be made. He also had a blood clot in your lung. The treatment is for blood thinners but do not start the blood thinner (apixaban) until the . Discharge Orders/Prescriptions Prescriptions: New Eliquis 5 mg Tablet 5 mg PO BID Qty: 60 0RF Rx Instructions: Start 05/08/2023 with 2 tabs twice daily for 5 days, then 1 tab twice daily ferrous sulfate [FeroSul] 325 mg (65 mg iron) Tablet 325 mg PO QODAY@1200 Qty: 14 0RF levofloxacin 750 mg Tablet 750 mg PO DAILY@0600 Qty: 1 0RF Rx Instructions: last dose is 05/07 misoprostol 200 mcg Tablet 200 mcg PO TIDCM Qty: 84 0RF sucralfate 1 gram Tablet 1 g PO TID@0700,1100,1600 28 Days Qty: 84 0RF prednisone 10 mg tablet 10 mg PO DAILY Qty: 30 0RF Rx Instructions: 4 tabs daily for 3 days, then 3 tabs daily for 3 days, then 2 tabs daily for 3 days, then 1 tab daily for 3 days metformin 500 mg tablet 500 mg PO BID Qty: 60 0RF pantoprazole [Protonix] 40 mg tablet,delayed release (DR/EC) 40 mg PO BID Qty: 60 0RF Continued carvedilol 25 mg tablet 25 mg PO BID Rx Instructions: must administer with a meal/food albuterol sulfate 90 mcg/actuation HFA aerosol inhaler 1 puff inhalation Q6H PRN (Reason: SOB) lidocaine-prilocaine 2.5-2.5 % cream 1 applic topical ONCE PRN (Reason: Port access ) 30 Days Qty: 30 2RF ipratropium-albuterol 0.5 mg-3 mg(2.5 mg base)/3 mL solution for nebulization 3 ml inhalation Q4H PRN (Reason: shortness of breath or wheezing) Qty: 180 3RF aspirin 81 MG tablet 81 mg PO DAILY rosuvastatin [Crestor] 40 MG tablet 40 mg PO DAILY amlodipine 10 mg tablet 10 mg PO DAILY esomeprazole magnesium [Nexium] 20 mg capsule,delayed release(DR/EC) 20 mg PO DAILY Qty: 30 0RF hydralazine 50 mg tablet 50 mg PO BID Held dexamethasone 4 mg tablet 2 mg PO DAILY Hold Instructions: Resume on 05/19/23. Patient Comments: TAKE 1 TABLET BY MOUTH TWICE A DAY Rx Instructions: states tapered down from the 4mg dose. Other Ambulatory Orders: Glucometer (Routine) Timeframe: 1 Day Location: Determined by Patient Ordered By: Dr. Khalif Quevedo Referrals / Follow Up: [facility] [Provider Group] - Within 3 Months *[facility] [Provider Group] - Within 2 Weeks [facility] [Provider Group] - 05/21/23 9:15 am Jacob Jennings DO [Primary Care Provider] - Within 2 Weeks Disposition Disposition (needs filled in before D/C Order can be placed): Home, Self Care 05/06/23 1121<Electronically signed by Khalif Quevedo DO>Khalif Quevedo DO CC: CHARGE OUT CLERK-Abraham Dunne; Dr. Thaddeus Patel MD; Dr. Benito Malcolm DO; Dr. Jacob Jennings DO; Dr. Tara Mae DO; Dr. Tu Zhang MD; Dr. Jm Varner MD ~ Signed [facility] Work Phone: [phone] Progress note Author Khalif [facility] May 06, 2023 11:05am Note Date/Time May 06, 2023 7:52 am [facility] Medical Records Department [address] [place] [address] Progress Note - Hospitalist 05/06/23 0748 MR#: [id number] Acct: [id number] Name: KENN ARSHAD Rep #:[id number] : 1955 67 From: Khalif Quevedo DO PCP: Dr. Jacob Jennings DO Status:AD M IN Location: [facility] [id number] Reason for Visit Reason for Visit: Diagnoses Malignant neoplasm of unspecified part of right bronchus or lung (05/02/23) Malignant neoplasm of unspecified kidney, except renal pelvis (05/02/23) Secondary malignant neoplasm of unspecified lung (05/02/23) Iron deficiency anemia, unspecified (05/02/23) Anemia, unspecified (05/02/23) Type 2 diabetes mellitus without complications (05/02/23) Other pulmonary embolism without acute cor pulmonale (05/02/23) Pneumonia, unspecified organism (05/02/23) Chronic obstructive pulmonary disease, unspecified (05/02/23) Duodenal ulcer, unspecified as acute or chronic, without hemorrhage or perforation (05/02/23) Gastrointestinal hemorrhage, unspecified (05/02/23) Shortness of breath (05/02/23) Hypoxemia (05/02/23) Hyperglycemia, unspecified (05/02/23) Subjective Subjective Feels well. No events overnight. Objective Data Objective Data Vital Signs: Vital Signs Temp Pulse Resp BP Pulse Ox O2 Del Method O2 Flow Rate 36.6 C 77 19 H 130/66 H 92 Nasal Cannula 2 05/05/23 20:39 05/06/23 07:47 05/06/23 07:47 05/05/23 20:48 05/06/23 07:48 05/06/23 07:48 05/06/23 07:48 Oxygen Flow Rate (L/min) 2 Oxygen Delivery Method Nasal Cannula Weight: 74.843 kg Body Mass Index (BMI) 29.8 Intake & Output: Intake and Output for Last 24 Hours 05/04/23 05/05/23 05/06/23 23:59 23:59 23:59 Intake Total 770 / 770 2250 / 2250 Output Total 0 / 0 Balance 770 / 770 2250 / 2250 Lab / Micro Data 05/06/23 08:05 05/05/23 05:55 Labs: Laboratory Results - last 24 hr 05/05/23 12:04: POC Glucose 323 H 05/05/23 16:55: POC Glucose 222 H 05/06/23 06:02: POC Glucose 242 H Micro: Microbiology 05/02/23 11:09 Blood Culture (Wb) #2 - Anticubital Left Blood Culture - Preliminary No growth in 48 hours. 05/02/23 11:05 Blood Culture (Wb) - Port Blood Culture - Preliminary No growth in 48 hours. 05/03/23 03:50 Sputum, Expectorated/Coughed Gram Stain - Final 05/03/23 03:50 Sputum, Expectorated/Coughed Respiratory Culture - Preliminary Appears to be normal respiratory laure. Further studies to follow. 05/03/23 06:35 Stool Stool Occult Blood (CRYSTAL) - Final Occult Blood Positive 05/02/23 17:15 Mucosa - Nasopharyngeal Respiratory Panel (PCR) - Final 05/02/23 12:16 Nasal Secretion SARS-CoV-2 Antigen (Rapid) - Final Rhythm Strip Rhythm Strip: Sinus Rhythm Rate: 90 Ectopy: None Physical Exam Const alert and no apparent distress HEENT head/scalp atraumatic and moist oral mucous membranes Resp normal respiratory effort, no retractions, no use of accessory muscles and clearto auscultation bilaterally Cardio regular rate, regular rhythm, S1 normal heart sound and S2 normal heart sound GI normal to inspection, nondistended, normoactive bowel sounds and soft to palpation Assessment & Plan Assessment/Plan (1) Pneumonitis: PLAN: Patient does not meet criteria for acute hypoxic respiratory failure Etiology is unclear: infectious/Keytruda induced pneumonitis/COPD exacerbation Pulm following. Testing: * CT of the chest demonstrated small chronic nonocclusive right lower lobe pulmonary embolus, new 3 mm spiculated right lower lobe nodule and left lower lobe pulmonary nodules measuring 8 mm suspicious for metastasis, progression of mild mediastinal and hilar lymphadenopathy, mild pneumonitis, bronchiectasis * COVID 19 and resp panel negative. SCx pending. BCx negative. Treatment * Continue Levaquin 750 mg daily through the . * IV steroids 40 every 12h and hold home Decadron-Transition back to Decadron at discharge. Steroid taper at discharge. * Aggressive pulmonary toilet: I-S/Acapella * Patient had echocardiogram done on January 13, 2023 that showed an EF of 65% and no evidence of diastolic dysfunction (2) Pulmonary emboli: PLAN: Suspect malignancy-induced Right lower lobe nonocclusive PE Hold anticoagulation--> patient with guaiac positive stool and drop in hemoglobin along with iron deficiency anemia Not likely etiology for acute shortness of breath and hypoxia No signs of cardiac strain Duplex of LE negative If H/H remain stable, could reintroduce anticoagulation. Would not resume until the . (3) Diabetes mellitus, type 2: PLAN: Likely steroid-induced Hemoglobin A1c was 7.4 consistent with diabetes Accu-Cheks Sliding scale insulin We will likely plan for diet control at discharge (4) Adenocarcinoma of right lung: PLAN: Poorly differentiated adenocarcinoma of the lung/metastatic left renal cell carcinoma Left radical nephrectomy 2005January 28, 2021--> Greening CT of chest showed spiculated partially cavitary massin the right lower lobe--> CT-guided biopsy demonstrated moderately to poorly differentiated adenocarcinoma of the lung primary--> March 2021 VATS converted to right muscle-sparing thoracotomy with right lower lobectomy, right upper lobe wedge resection and right middle lobe wedge resection with mediastinal lymph node dissection (positive lymph nodes noted at this time)--> MRI October 2022 showed 1.6 cm enhancing mass in the left posterior parietal lobe concerning for hemorrhagic metastasis and large surrounding edema--> follow-up MRI December 16, 2022 shows increasing size of metastatic mass in the left posterior parietal lobe--> CT of chest abdomen pelvis December 29, 2022 showed persistent solid mass in the lower pole of the right kidney with slight increase in size since August, chronic interstitial changes in both lungs--> follow-up MRI January 2023 shows persistent hemorrhagic metastasis--> follow-up chest abdomen pelvis CT 2022 shows an enlarged right posterior mediastinal lymph node and stable 4.2 cm right renal mass--> MRI brain March 2023 shows doubling in size of mass in the posterior medial aspect of the left parietal lobe with surrounding vasogenic edema that had slightly increased and no further metastatic lesions--> MRI spectroscopy April 16, 2023 showed spectroscopy and perfusion findings medial and dorsal aspects of the treated presumed left parietal metastasis compatible with viable tumor with more extensive surrounding radiation necrosis May 07, 2021 pembrolizumab plus axitinib for metastatic RCC/Axitinib discontinued May 2021 due to hypertensive crisis Keytruda single agent May 07 ?July 30,2020 (5 cycles)? [place] but held in August 2021 due to ELANA.? Resumed November 26, 2021 Stereotactic brain radiation at [facility] October 28, 2022 a single fraction with10 [address] of chest at this time shows new findings in the lung Follow up neurosurgery as outpt. (5) Anemia: PLAN: microcytic iron low, ferritin high, however. will change iron to Ferrous sulfate 325 QOD. (6) Duodenal ulcer: PLAN: Multiple. EGD on 05/04: Visible vessel that was injected. Another w non-bleeding pigmented material that was treated with a heater probe. FLD Pantoprazole gtt for 72h then BID dosing Per GI, sucralfate 1 g TID, misoprostol 200 TID for 4 weeks. BID PPI PLAN: Plan Chronic conditions: * CAD/hypertension/isvysrwvlmwzim-WXL-QVE-LPLB w/ 2.25 x 18 mm Biodivysio Stent x 2, BMS-OM1 w/ 2.25 x 18 mm Biodivysio Stent and 2.25 x 18 mm Pixel Stent and MARVIN- Prox LCx w/ 3.5 x 18 mm Cypher Stent 07/17/2003-Hold home aspirin for now and restart when okay with GI-Continue home amlodipine-continue home carvedilol-Continue home rosuvastatin-Continue home hydralazine * Microcytic anemia-1 g hemoglobin drop overnight-Hold anticoagulation- Consistent with iron deficiency-EGD for tomorrow-IV iron x3 days 200 mg-We will need to discharge on oral iron * Thrombocytopenia-Appears to be chronic and is stable-Likely related to ongoing chemotherapy and cancer treatment-Counts are stable and greater than 100,000 * Aortic valve azyvdqkm-Rmnv-Dt acute issues-Most recent echocardiogram shows stability * COPD-PFTs show only mild large airway obstructive ventilatory defect-O2 dependent at baseline-No exertional hypoxemia noted on 6-minute walk test earlier this year-Continued outpatient follow-up with pulmonary medicine after discharge DVT prophylaxis -Fully anticoagulated with Eliquis CODE STATUS -Full code verified on admission DC home after PPI gtt completed. 05/06/23 1105 <Electronically signed by Khalif Quevedo DO> Cosigner Signature (if applicable): CC: ~ Signed [facility] Work Phone: 1(155) 515-883906-28-2023 Progress note Author Benito Malcolm [facility] May 06, 2023 10:14am Note Date/Time May 06, 2023 10:1 4am [facility] Medical Records Department [address] [place] [address] Progress Note - Worship Director 05/06/23 1012 MR#: [id number] Acct: [id number] Name: KENN ARSHAD Rep #:[id number] : 1955 67 From: Benito Malcolm DO PCP: Dr. Jacob Jennings DO Status:AD IN [id number] & Plan Assessment/Plan (1) SOB (shortness of breath): (2) COPD (chronic obstructive pulmonary disease): (3) 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: (4) Pulmonary emboli: PLAN: Plan RECOMMENDATIONS: 1. Continue empiric antimicrobials to complete 7-day treatment course. 2. Continue bronchodilators. 3. Continue steroids. Discharge home on steroid taper, beginning at 40 mg daily and tapering by 10 mg every 3 days. 4. Continue to wean supplemental oxygen to maintain saturations at or above 90%. 5. Encourage incentive spirometer use and mobilize patient as tolerated. 6. Outpatient pulmonary follow-up 2 weeks after discharge. 7. We will sign off at this time. Please call with any additional questions. IMPRESSIONS: 1. Shortness of breath and hypoxemia Unclear etiology. CTA chest completed on May 02 demonstrated a small nonocclusive right lower lobe pulmonary embolism along with groundglass opacities and mosaic attenuation. The patient is on Keytruda as an outpatient, raising the possibility for medication induced pneumonitis. Alternatively, chemical pneumonitis secondary to environmental inhalation of pool chemicals is also a possibility. Congestive heart failure seems unlikely. Therefore it is certainly reasonable to continue empiric antibiotics along with bronchodilators and steroids. Anticipate home-going supplemental oxygen requirement. He will need to follow-up in the pulmonary medicine clinic within 2 weeks of discharge. 2. 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 3. Microcytic anemia/aortic valve stenosis/CAD/COPD/hyperglycemia/chronic steroids Complicates care, management, recovery and prognosis. Continue home medicationsas indicated. This note was generated with 66. com dictation software. It may contain incorrectwords, spelling, and punctuation that were not noted in checking the note beforesigning. Subjective Subjective The patient was seen and examined at the bedside this morning. Events from the last 24 hours have been reviewed. The patient is currently afebrile, hemodynamically stable and maintaining appropriate oxygen saturations on 2 L/minvia nasal cannula. The patient again denies any shortness of breath. There aretentative plans for discharge later today. Objective Data Objective Data The patient's most recent lab work, culture data and imaging studies have all been personally reviewed. Infectious work-up has been unrevealing to date. Vital Signs: Vital Signs Temp Pulse Resp BP Pulse Ox O2 Del Method O2 Flow Rate 97.7 F L 90 16 133/74 H 94 Room Air 2 05/06/23 09:04 05/06/23 09:16 05/06/23 09:04 05/06/23 09:16 05/06/23 09:23 05/06/23 09:23 05/06/23 09:04 Oxygen Flow Rate (L/min) 2 Oxygen Delivery Method Room Air Weight: 165 lb 0.009 oz Body Mass Index (BMI) 29.8 Intake & Output: Intake and Output for Last 24 Hours 05/04/23 05/05/23 05/06/23 23:59 23:59 23:59 Intake Total 770 / 770 2250 / 2250 400 / 400 Output Total 0 / 0 Balance 770 / 770 2250 / 2250 400 / 400 Lab / Micro Data Attestation: I reviewed the patient's lab results. 05/06/23 08:05 05/05/23 05:55 Labs: Laboratory Results - last 24 hr 05/05/23 05:55: Diff Path Review Reviewed 05/05/23 12:04: POC Glucose 323 H 05/05/23 16:55: POC Glucose 222 H 05/06/23 06:02: POC Glucose 242 H 05/06/23 08:05: WBC 4.6, RBC 4.19 L, Hgb 10.7 L, Hct 32.7 L, MCV 78.0 L, MCH 25.5 L, MCHC 32.7, RDW Std Deviation 48.0 H, RDW Coeff of Kailey 17.2 H, Plt Count 128 L, MPV 8.9, Neut % (Auto) Not Reportable, Absolute Neuts (auto) 3.9, Absolute Lymphs (auto) 0.36 L, Total Counted 100, Neutrophils % (Manual) 84 H, Band Neutrophils % 1, Lymphocytes % (Manual) 8 L, Metamyelocytes % 6 H, Myelocytes % 1 H, Nucleated RBCs/100 WBC 2, Diff Path Review March, Platelet Estimate SLT DEC, RBC Morphology NORM C+C Micro: Microbiology 05/03/23 03:50 Sputum, Expectorated/Coughed Gram Stain - Final 05/03/23 03:50 Sputum, Expectorated/Coughed Respiratory Culture - Final Mixed normal respiratory laure. No Streptococcus pneumoniae, beta-hemolytic Streptococcus or Staphylococcus aureus isolated. 05/02/23 11:09 Blood Culture (Wb) #2 - Anticubital Left Blood Culture - Preliminary No growth in 48 hours. 05/02/23 11:05 Blood Culture (Wb) - Port Blood Culture - Preliminary No growth in 48 hours. 05/03/23 06:35 Stool Stool Occult Blood (CRYSTAL) - Final Occult Blood Positive 05/02/23 17:15 Mucosa - Nasopharyngeal Respiratory Panel (PCR) - Final 05/02/23 12:16 Nasal Secretion SARS-CoV-2 Antigen (Rapid) - Final Radiography Diagnostic Testing: Radiology Impression Chest X-Ray 05/04/23 05:00 IMPRESSION: No definite acute or significant abnormality seen. Electronically Signed: Sami Gould MD at 17:12 EDT , Venous Doppler Study 05/04/23 12:54 Interpretation Summary Deep veins of the lower extremities are bilaterally patent and compressible segmentally. There is no evidence of deep vein thrombosis on either side. Valvular competence appears intact within the proximal deep venous systems bilaterally. The great saphenous veins appear bilaterally patent and compressible segmentally. Ordering Physician: Khalif Quevedo Performed By: Figueroa Osorio T Rhythm Strip Rhythm Strip: Sinus Rhythm Rate: 90 Ectopy: None Physical Exam Const alert and no apparent distress Constitutional Narrative: Sitting upright in bed. General Appearance: cooperative HEENT normocephalic, head/scalp atraumatic and moist oral mucous membranes Eyes PERRL, EOMs intact bilaterally and conjunctivae normal Neck supple General: trachea midline Chest inspection of chest normal Resp normal respiratory effort Auscultation: diminished lung sounds; Negative for rales, rhonchi or wheezes Cardio regular rate and regular rhythm GI normal to inspection, nondistended, normoactive bowel sounds Extremity no clubbing, cyanosis or edema Skin no rashes or lesions noted Neuro oriented x3, CN's II-XII intact bilaterally and moves all extremities Psych cooperative and affect normal Charges/Coding Visit Charges Inpatient E&M: 80620 Subs Hosp L2 05/06/23 1014 <Electronically signed by Benito Malcolm DO> Cosigner Signature (if applicable): CC: ~ Signed [facility] Work Phone: 1(575) 797-465706-27-2023 Progress note Author Michaelmatilde Chambers [facility] May 05, 2023 3:56pm Note Date/Time May 05, 2023 3:55 pm [facility] Medical Records Department [address] [place] [address] Progress Note - GI 05/05/23 1552 MR#: [id number] Acct: [id number] Name: KENN ARSHAD Rep #:[id number] : 1955 67 From: Michael Chambers DO PCP: Dr. Jacob Jennings, DO Status:AD M IN Location: [facility] [id number] Subjective Subjective Patient underwent a an upper endoscopy yesterday for presumed upper GI bleed causing patient's new onset anemia. He was discovered to have multiple large bleeding duodenal ulcers with a very hard thickened duodenum likely secondary tomedication. Bleeding was stopped and biopsies were taken. No signs or symptomsof bleeding overnight. He does not have any abdominal pain and is tolerating a diet. Objective Data Objective Data Vital Signs: Vital Signs Temp Pulse Resp BP Pulse Ox O2 Del Method O2 Flow Rate 98.7 F 87 18 136/74 H 95 Nasal Cannula 2 05/05/23 15:01 05/05/23 15:01 05/05/23 15:01 05/05/23 15:01 05/05/23 15:01 05/05/23 15:01 05/05/23 15:01 Oxygen Flow Rate (L/min) 2 Oxygen Delivery Method Nasal Cannula Weight: 165 lb 0.009 oz Body Mass Index (BMI) 29.8 Intake & Output: Intake and Output for Last 24 Hours 05/03/23 05/04/23 05/05/23 23:59 23:59 23:59 Intake Total 305 / 305 770 / 770 1150 / 1150 Output Total 500 / 500 0 / 0 Balance -195 / -195 770 / 770 1150 / 1150 Lab / Micro Data Result Diagrams: 05/05/23 05:55 05/05/23 05:55 Labs: Laboratory Results - last 24 hr 05/04/23 16:41: POC Glucose 243 H 05/04/23 22:28: POC Glucose 263 H 05/05/23 05:55: WBC 4.8, RBC 4.08 L, Hgb 10.4 L, Hct 31.7 L, MCV 77.7 L, MCH 25.5 L, MCHC 32.8 D, RDW Std Deviation 47.8 H, RDW Coeff of Kailey 17.2 H, Plt Count 117 L, MPV 9.2, Neut % (Auto) Not Reportable, Absolute Neuts (auto) 4.1, Absolute Lymphs (auto) 0.29 L, Total Counted 100, Neutrophils % (Manual) 83 H, Band Neutrophils % 3, Lymphocytes % (Manual) 6 L, Monocytes % (Manual) 4, Myelocytes % 4 H, Diff Path Review March, Platelet Estimate SLT DEC, Anisocytosis 1+, Microcytosis 1+ 05/05/23 05:55: Sodium 138, Potassium 3.9, Chloride 113 H, Carbon Dioxide 17.0 L, Anion Gap 8, BUN 29 H, Creatinine 0.94, Estim Creat Clear Calc 64.52, Est GFR (MDRD) Af Amer 102, Est GFR (MDRD) Non-Af 84, BUN/Creatinine Ratio 30.8 H, Glucose 252 H, Calcium 8.8 05/05/23 06:53: POC Glucose 245 H 05/05/23 12:04: POC Glucose 323 H Micro: Microbiology 05/02/23 11:09 Blood Culture (Wb) #2 - Anticubital Left Blood Culture - Preliminary No growth in 48 hours. 05/02/23 11:05 Blood Culture (Wb) - Port Blood Culture - Preliminary No growth in 48 hours. 05/03/23 03:50 Sputum, Expectorated/Coughed Gram Stain - Final 05/03/23 03:50 Sputum, Expectorated/Coughed Respiratory Culture - Preliminary Appears to be normal respiratory laure. Further studies to follow. 05/03/23 06:35 Stool Stool Occult Blood (CRYSTAL) - Final Occult Blood Positive 05/02/23 17:15 Mucosa - Nasopharyngeal Respiratory Panel (PCR) - Final 05/02/23 12:16 Nasal Secretion SARS-CoV-2 Antigen (Rapid) - Final Radiography Diagnostic Testing: Radiology Impression Chest X-Ray 05/04/23 05:00 IMPRESSION: No definite acute or significant abnormality seen. Electronically Signed: Sami Gould MD at 17:12 EDT , Venous Doppler Study 05/04/23 12:54 Interpretation Summary Deep veins of the lower extremities are bilaterally patent and compressible segmentally. There is no evidence of deep vein thrombosis on either side. Valvular competence appears intact within the proximal deep venous systems bilaterally. The great saphenous veins appear bilaterally patent and compressible segmentally. Ordering Physician: Khalif Quevedo Performed By: Figueroa Osorio RVT Rhythm Strip Rhythm Strip: Sinus Rhythm Rate: 90 Ectopy: None Physical Exam Const alert and no apparent distress General Appearance: cooperative HEENT normocephalic, head/scalp atraumatic and moist oral mucous membranes Eyes PERRL, EOMs intact bilaterally and conjunctivae normal Neck supple General: trachea midline Chest inspection of chest normal Resp normal respiratory effort Auscultation: diminished lung sounds; Negative for rales, rhonchi or wheezes Cardio regular rate and regular rhythm GI normal to inspection, nondistended, normoactive bowel sounds Extremity no clubbing, cyanosis or edema Skin no rashes or lesions noted Neuro oriented x3, CN's II-XII intact bilaterally and moves all extremities Psych cooperative and affect normal Assessment & Plan Assessment/Plan (1) GI bleed: (2) Anemia: QUALIFIERS: Anemia type: iron deficiency Iron deficiency anemia type: unspecified iron deficiency Qualified Code(s): D50.9 - Iron deficiency anemia, unspecified PLAN: Plan 67-year-old gentleman with history of metastatic renal cell carcinoma to the lungs and brain (on steroids) status post VATS surgery, chemotherapy, on Keytruda who develops worsening shortness of breath and discovered to have pneumonia and pulmonary emboli. He was also discovered to have worsening iron deficiency anemia with decrease in blood count after undergoing anticoagulation. Recommendation: Duodenal ulcers-continue PPI drip. Continue to hold anticoagulation. He will need sulcal fate 1 g p.o. 3 times daily or [id number] mg p.o. 3 times daily for 4 weeks along with Protonix 40 mg twice a day. Continue to monitor H&H. Charges/Coding Visit Charges Inpatient E&M: 86812 Subs Hosp L2 05/05/23 1556 <Electronically signed by Michael Chambers DO> Cosigner Signature (if applicable): CC: ~ Signed [facility] Work Phone: 1(160) 939-106806-27-2023 Progress note Author Benito Malcolm [facility] May 05, 2023 12:27pm Note Date/Time May 05, 2023 10:0 3am [facility] Medical Records Department [address] [place] [address] Progress Note - Worship Director 05/05/23 1002 MR#: [id number] Acct: [id number] Name: KENN ARSHAD Rep #:[id number] : 1955 67 From: Benito Malcolm DO PCP: Dr. Jacob Jennings, Status:AD M IN Location: [facility] [id number] Assessment & Plan Assessment/Plan (1) SOB (shortness of breath): (2) COPD (chronic obstructive pulmonary disease): (3) 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: (4) Pulmonary emboli: PLAN: Plan RECOMMENDATIONS: 1. Continue empiric antimicrobials to complete 7-day treatment course. 2. Continue bronchodilators. 3. Continue steroids. Anticipate steroid taper at discharge. 4. Continue to wean supplemental oxygen to maintain saturations at or above 90%. 5. Encourage incentive spirometer use and mobilize patient as tolerated. 6. Outpatient pulmonary follow-up 2 weeks after discharge. IMPRESSIONS: 1. Shortness of breath and hypoxemia Unclear etiology. CTA chest completed on May 02 demonstrated a small nonocclusive right lower lobe pulmonary embolism along with groundglass opacities and mosaic attenuation. The patient is on Keytruda as an outpatient, raising the possibility for medication induced pneumonitis. Alternatively, chemical pneumonitis secondary to environmental inhalation of pool chemicals is also a possibility. Congestive heart failure seems unlikely. Therefore it is certainly reasonable to continue empiric antibiotics along with bronchodilators and steroids. Anticipate home-going supplemental oxygen requirement. He will need to follow-up in the pulmonary medicine clinic within 2 weeks of discharge. 2. 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 3. Microcytic anemia/aortic valve stenosis/CAD/COPD/hyperglycemia/chronic steroids Complicates care, management, recovery and prognosis. Continue home medicationsas indicated. This note was generated with 66. com dictation software. It may contain incorrectwords, spelling, and punctuation that were not noted in checking the note beforesigning. Subjective Subjective The patient was seen and examined at the bedside this morning. Events from the last 24 hours have been reviewed. The patient is currently afebrile, hemodynamically stable and maintaining appropriate oxygen saturations on 2 L/minvia nasal cannula. The patient overall feels well from a respiratory perspective, with minimal shortness of breath. Objective Data Objective Data The patient's most recent lab work, culture data and imaging studies have all been personally reviewed. Infectious work-up has been unrevealing to date. Vital Signs: Vital Signs Temp Pulse Resp BP Pulse Ox O2 Del Method O2 Flow Rate 98.4 F 89 18 123/74 H 95 Nasal Cannula 2 05/05/23 08:35 05/05/23 08:35 05/05/23 08:35 05/05/23 08:35 05/05/23 08:35 05/05/23 08:35 05/05/23 08:35 Oxygen Flow Rate (L/min) 2 Oxygen Delivery Method Nasal Cannula Weight: 165 lb 0.009 oz Body Mass Index (BMI) 29.8 Intake & Output: Intake and Output for Last 24 Hours 05/03/23 05/04/23 05/05/23 23:59 23:59 23:59 Intake Total 305 / 305 770 / 770 300 / 300 Output Total 500 / 500 0 / 0 Balance -195 / -195 770 / 770 300 / 300 Lab / Micro Data Attestation: I reviewed the patient's lab results. Result Diagrams: 05/05/23 05:55 05/05/23 05:55 Labs: Laboratory Results - last 24 hr 05/02/23 11:05: Diff Path Review Reviewed 05/03/23 05:21: Diff Path Review Reviewed 05/04/23 05:40: Diff Path Review Reviewed 05/04/23 10:33: Procalcitonin 0.10 H 05/04/23 11:16: POC Glucose 189 H 05/04/23 16:41: POC Glucose 243 H 05/04/23 22:28: POC Glucose 263 H 05/05/23 05:55: WBC 4.8, RBC 4.08 L, Hgb 10.4 L, Hct 31.7 L, MCV 77.7 L, MCH 25.5 L, MCHC 32.8 D, RDW Std Deviation 47.8 H, RDW Coeff of Kailey 17.2 H, Plt Count 117 L, MPV 9.2, Neut % (Auto) Not Reportable, Absolute Neuts (auto) 4.1, Absolute Lymphs (auto) 0.29 L, Total Counted 100, Neutrophils % (Manual) 83 H, Band Neutrophils % 3, Lymphocytes % (Manual) 6 L, Monocytes % (Manual) 4, Myelocytes % 4 H, Diff Path Review March, Platelet Estimate SLT DEC, Anisocytosis 1+, Microcytosis 1+ 05/05/23 05:55: Sodium 138, Potassium 3.9, Chloride 113 H, Carbon Dioxide 17.0 L, Anion Gap 8, BUN 29 H, Creatinine 0.94, Estim Creat Clear Calc 64.52, Est GFR (MDRD) Af Amer 102, Est GFR (MDRD) Non-Af 84, BUN/Creatinine Ratio 30.8 H, Glucose 252 H, Calcium 8.8 05/05/23 06:53: POC Glucose 245 H Micro: Microbiology 05/02/23 11:09 Blood Culture (Wb) #2 - Anticubital Left Blood Culture - Preliminary No growth in 48 hours. 05/02/23 11:05 Blood Culture (Wb) - Port Blood Culture - Preliminary No growth in 48 hours. 05/03/23 03:50 Sputum, Expectorated/Coughed Gram Stain - Final 05/03/23 03:50 Sputum, Expectorated/Coughed Respiratory Culture - Preliminary Appears to be normal respiratory laure. Further studies to follow. 05/03/23 06:35 Stool Stool Occult Blood (CRYSTAL) - Final Occult Blood Positive 05/02/23 17:15 Mucosa - Nasopharyngeal Respiratory Panel (PCR) - Final 05/02/23 12:16 Nasal Secretion SARS-CoV-2 Antigen (Rapid) - Final Radiography Diagnostic Testing: Radiology Impression Chest X-Ray 05/04/23 05:00 IMPRESSION: No definite acute or significant abnormality seen. Electronically Signed: Sami Gould MD at 17:12 EDT , Venous Doppler Study 05/04/23 12:54 Interpretation Summary Deep veins of the lower extremities are bilaterally patent and compressible segmentally. There is no evidence of deep vein thrombosis on either side. Valvular competence appears intact within the proximal deep venous systems bilaterally. The great saphenous veins appear bilaterally patent and compressible segmentally. Ordering Physician: Khalif Quevedo Performed By: Figueroa Osorio, Emma Rhythm Strip Rhythm Strip: Sinus Rhythm Rate: 90 Ectopy: None Physical Exam Const alert and no apparent distress Constitutional Narrative: Sitting upright in bed. General Appearance: cooperative HEENT normocephalic, head/scalp atraumatic and moist oral mucous membranes Eyes PERRL, EOMs intact bilaterally and conjunctivae normal Neck supple General: trachea midline Chest inspection of chest normal Resp normal respiratory effort Auscultation: diminished lung sounds; Negative for rales, rhonchi or wheezes Cardio regular rate and regular rhythm GI normal to inspection, nondistended, normoactive bowel sounds Extremity no clubbing, cyanosis or edema Skin no rashes or lesions noted Neuro oriented x3, CN's II-XII intact bilaterally and moves all extremities Psych cooperative and affect normal Charges/Coding Visit Charges Inpatient E&M: 54736 Subs Hosp L2 05/05/23 1227 <Electronically signed by Benito Malcolm DO> Cosigner Signature (if applicable): CC: ~ Signed [facility] Work Phone: 1(347) 892-579406-27-2023 Progress note Author Khalif Quevedo [facility] May 05, 2023 11:27am Note Date/Time May 05, 2023 8:12 am [facility] Medical Records Department [address] [place] [address] Progress Note - Hospitalist 05/05/23 08 MR#: [id number] Acct: [id number] Name: KENN ARSHAD Rep #:[id number] : 1955 67 From: Khalif Quevedo DO PCP: Dr. Jacob Jennings, DO Status:AD M IN Location: [place] [id number] Reason for Visit Reason for Visit: Diagnoses Malignant neoplasm of unspecified part of right bronchus or lung (05/02/23) Malignant neoplasm of unspecified kidney, except renal pelvis (05/02/23) Secondary malignant neoplasm of unspecified lung (05/02/23) Iron deficiency anemia, unspecified (05/02/23) Anemia, unspecified (05/02/23) Type 2 diabetes mellitus without complications (05/02/23) Other pulmonary embolism without acute cor pulmonale (05/02/23) Pneumonia, unspecified organism (05/02/23) Chronic obstructive pulmonary disease, unspecified (05/02/23) Gastrointestinal hemorrhage, unspecified (05/02/23) Shortness of breath (05/02/23) Hypoxemia (05/02/23) Hyperglycemia, unspecified (05/02/23) Subjective Subjective Feeling well. No events overnight. Objective Data Objective Data Vital Signs: Vital Signs Temp Pulse Resp BP Pulse Ox O2 Del Method O2 Flow Rate 36.6 C 77 18 136/73 H 93 Nasal Cannula 2 05/05/23 05:17 05/05/23 07:03 05/05/23 07:03 05/05/23 05:17 05/05/23 07:03 05/05/23 07:03 05/05/23 07:03 Oxygen Flow Rate (L/min) 2 Oxygen Delivery Method Nasal Cannula Weight: 74.843 kg Body Mass Index (BMI) 29.8 Intake & Output: Intake and Output for Last 24 Hours 05/03/23 05/04/23 05/05/23 23:59 23:59 23:59 Intake Total 305 / 305 770 / 770 300 / 300 Output Total 500 / 500 0 / 0 Balance -195 / -195 770 / 770 300 / 300 Lab / Micro Data Result Diagrams: 05/05/23 05:55 05/05/23 05:55 Labs: Laboratory Results - last 24 hr 05/02/23 11:05: Diff Path Review Reviewed 05/03/23 05:21: Diff Path Review Reviewed 05/04/23 05:40: Diff Path Review Reviewed 05/04/23 10:33: Procalcitonin 0.10 H 05/04/23 11:16: POC Glucose 189 H 05/04/23 16:41: POC Glucose 243 H 05/04/23 22:28: POC Glucose 263 H 05/05/23 05:55: WBC 4.8, RBC 4.08 L, Hgb 10.4 L, Hct 31.7 L, MCV 77.7 L, MCH 25.5 L, MCHC 32.8 D, RDW Std Deviation 47.8 H, RDW Coeff of Kailey 17.2 H, Plt Count 117 L, MPV 9.2, Neut % (Auto) Not Reportable, Absolute Neuts (auto) 4.1, Absolute Lymphs (auto) 0.29 L, Total Counted 100, Neutrophils % (Manual) 83 H, Band Neutrophils % 3, Lymphocytes % (Manual) 6 L, Monocytes % (Manual) 4, Myelocytes % 4 H, Diff Path Review May foll, Platelet Estimate SLT DEC, Anisocytosis 1+, Microcytosis 1+ 05/05/23 05:55: Sodium 138, Potassium 3.9, Chloride 113 H, Carbon Dioxide 17.0 L, Anion Gap 8, BUN 29 H, Creatinine 0.94, Estim Creat Clear Calc 64.52, Est GFR (MDRD) Af Amer 102, Est GFR (MDRD) Non-Af 84, BUN/Creatinine Ratio 30.8 H, Glucose 252 H, Calcium 8.8 05/05/23 06:53: POC Glucose 245 H Micro: Microbiology 05/02/23 11:09 Blood Culture (Wb) #2 - Anticubital Left Blood Culture - Preliminary No growth in 48 hours. 05/02/23 11:05 Blood Culture (Wb) - Port Blood Culture - Preliminary No growth in 48 hours. 05/03/23 03:50 Sputum, Expectorated/Coughed Gram Stain - Final 05/03/23 03:50 Sputum, Expectorated/Coughed Respiratory Culture - Preliminary Appears to be normal respiratory laure. Further studies to follow. 05/03/23 06:35 Stool Stool Occult Blood (CRYSTAL) - Final Occult Blood Positive 05/02/23 17:15 Mucosa - Nasopharyngeal Respiratory Panel (PCR) - Final 05/02/23 12:16 Nasal Secretion SARS-CoV-2 Antigen (Rapid) - Final Radiography Diagnostic Testing: Radiology Impression Chest X-Ray 05/04/23 05:00 IMPRESSION: No definite acute or significant abnormality seen. Electronically Signed: Sami Gould MD at 17:12 EDT , Venous Doppler Study 05/04/23 12:54 Interpretation Summary Deep veins of the lower extremities are bilaterally patent and compressible segmentally. There is no evidence of deep vein thrombosis on either side. Valvular competence appears intact within the proximal deep venous systems bilaterally. The great saphenous veins appear bilaterally patent and compressible segmentally. Ordering Physician: Khalif Quevedo Performed By: Figueroa Osorio, T Rhythm Strip Rhythm Strip: Sinus Rhythm Rate: 90 Ectopy: None Physical Exam Const alert and no apparent distress HEENT head/scalp atraumatic and moist oral mucous membranes Resp normal respiratory effort, no retractions, no use of accessory muscles and clearto auscultation bilaterally Cardio regular rate, regular rhythm, S1 normal heart sound and S2 normal heart sound GI normal to inspection, nondistended, normoactive bowel sounds, soft to palpation,non-tender and non-distended Extremity normal to inspection Psych affect normal Assessment & Plan Assessment/Plan (1) Pneumonitis: PLAN: Patient does not meet criteria for acute hypoxic respiratory failure Etiology is unclear: infectious/Keytruda induced pneumonitis/COPD exacerbation Pulm following. Testing: * CT of the chest demonstrated small chronic nonocclusive right lower lobe pulmonary embolus, new 3 mm spiculated right lower lobe nodule and left lower lobe pulmonary nodules measuring 8 mm suspicious for metastasis, progression of mild mediastinal and hilar lymphadenopathy, mild pneumonitis, bronchiectasis * COVID 19 and resp panel negative. SCx pending. BCx negative. Treatment * Continue Levaquin 750 mg daily through the . * IV steroids 40 every 12h and hold home Decadron-Transition back to Decadron at discharge * Aggressive pulmonary toilet: I-S/Acapella * Patient had echocardiogram done on January 13, 2023 that showed an EF of 65% and no evidence of diastolic dysfunction (2) Pulmonary emboli: PLAN: Suspect malignancy-induced Right lower lobe nonocclusive PE Hold anticoagulation--> patient with guaiac positive stool and drop in hemoglobin along with iron deficiency anemia Not likely etiology for acute shortness of breath and hypoxia No signs of cardiac strain Duplex of LE negative If H/H remain stable, could reintroduce anticoagulation. Would not resume until the . (3) Diabetes mellitus, type 2: PLAN: Likely steroid-induced Hemoglobin A1c was 7.4 consistent with diabetes Accu-Cheks Sliding scale insulin We will likely plan for diet control at discharge (4) Adenocarcinoma of right lung: PLAN: Poorly differentiated adenocarcinoma of the lung/metastatic left renal cell carcinoma Left radical nephrectomy 2005January 28, 2021--> Greening CT of chest showed spiculated partially cavitary massin the right lower lobe--> CT-guided biopsy demonstrated moderately to poorly differentiated adenocarcinoma of the lung primary--> March 2021 VATS converted to right muscle-sparing thoracotomy with right lower lobectomy, right upper lobe wedge resection and right middle lobe wedge resection with mediastinal lymph node dissection (positive lymph nodes noted at this time)--> MRI October 2022 showed 1.6 cm enhancing mass in the left posterior parietal lobe concerning for hemorrhagic metastasis and large surrounding edema--> follow-up MRI December 16, 2022 shows increasing size of metastatic mass in the left posterior parietal lobe--> CT of chest abdomen pelvis December 29, 2022 showed persistent solid mass in the lower pole of the right kidney with slight increase in size since August, chronic interstitial changes in both lungs--> follow-up MRI January 2023 shows persistent hemorrhagic metastasis--> follow-up chest abdomen pelvis CT 2022 shows an enlarged right posterior mediastinal lymph node and stable 4.2 cm right renal mass--> MRI brain March 2023 shows doubling in size of mass in the posterior medial aspect of the left parietal lobe with surrounding vasogenic edema that had slightly increased and no further metastatic lesions--> MRI spectroscopy April 16, 2023 showed spectroscopy and perfusion findings medial and dorsal aspects of the treated presumed left parietal metastasis compatible with viable tumor with more extensive surrounding radiation necrosis May 07, 2021 pembrolizumab plus axitinib for metastatic RCC/Axitinib discontinued May 2021 due to hypertensive crisis Keytruda single agent May 07 ?July 30,2020 (5 cycles)? [place] but held in August 2021 due to ELANA.? Resumed November 26, 2021 Stereotactic brain radiation at [facility] October 28, 2022 a single fraction with[address] of chest at this time shows new findings in the lung Follow up neurosurgery as outpt. (5) Anemia: PLAN: microcytic iron low, ferritin high, however. will change iron to Ferrous sulfate 325 QOD. (6) Duodenal ulcer: PLAN: Multiple. EGD on 05/04: Visible vessel that was injected. Another w non-bleeding pigmented material that was treated with a heater probe. FLD Pantoprazole gtt for 72h then BID dosing PLAN: Plan Chronic conditions: * CAD/hypertension/brepurluatdcsg-CQJ-PZU-LPLB w/ 2.25 x 18 mm Biodivysio Stent x 2, BMS-OM1 w/ 2.25 x 18 mm Biodivysio Stent and 2.25 x 18 mm Pixel Stent and MARVIN- Prox LCx w/ 3.5 x 18 mm Cypher Stent 07/17/2003-Hold home aspirin for now and restart when okay with GI-Continue home amlodipine-continue home carvedilol-Continue home rosuvastatin-Continue home hydralazine * Microcytic anemia-1 g hemoglobin drop overnight-Hold anticoagulation- Consistent with iron deficiency-EGD for tomorrow-IV iron x3 days 200 mg-We w ill need to discharge on oral iron * Thrombocytopenia-Appears to be chronic and is stable-Likely related to ongoing chemotherapy and cancer treatment-Counts are stable and greater than 100,000 * Aortic valve jqcwtics-Lbqy-Bu acute issues-Most recent echocardiogram shows stability * COPD-PFTs show only mild large airway obstructive ventilatory defect-O2 dependent at baseline-No exertional hypoxemia noted on 6-minute walk test earlier this year-Continued outpatient follow-up with pulmonary medicine after discharge DVT prophylaxis -Fully anticoagulated with Eliquis CODE STATUS -Full code verified on admission Charges/Coding Visit Charges Inpatient E&M: 76763 Subs Hosp L2 05/05/23 1127 <Electronically signed by Khalif Quevedo DO> Cosigner Signature (if applicable): CC: ~ Signed [facility] Work Phone: 1(345) 479-958906-26-2023 Progress note Author Khalif Quevedo [facility] May 04, 2023 12:59pm Note Date/Time May 04, 2023 9:38 am [facility] Medical Records Department [address] [place] [id number] Progress Note - Hospitalist 05/04/23927 MR#: [id number] Acct: [id number] Name: KENN ARSHAD Rep #:[id number] : 1955 67 From: Khalif Quevedo DO PCP: Dr. Jacob Jennings DO Status:AD M IN Location: [place] [id number] Reason for Visit Reason for Visit: Diagnoses Malignant neoplasm of unspecified kidney, except renal pelvis (05/02/23) Secondary malignant neoplasm of unspecified lung (05/02/23) Other pulmonary embolism without acute cor pulmonale (05/02/23) Chronic obstructive pulmonary disease, unspecified (05/02/23) Shortness of breath (05/02/23) Hypoxemia (05/02/23) Hyperglycemia, unspecified (05/02/23) Subjective Subjective Feels well. No complaints. Breathing well. Objective Data Objective Data Vital Signs: Vital Signs Temp Pulse Resp BP Pulse Ox O2 Del Method O2 Flow Rate 36.6 C 88 20 H 135/63 H 93 Nasal Cannula 3 05/04/23 07:46 05/04/23 07:46 05/04/23 07:46 05/04/23 07:46 05/04/23 07:46 05/04/23 07:46 05/04/23 07:46 Oxygen Flow Rate (L/min) 3 Oxygen Delivery Method Nasal Cannula Weight: 74.843 kg Body Mass Index (BMI) 29.8 Intake & Output: Intake and Output for Last 24 Hours 05/02/23 05/03/23 05/04/23 23:59 23:59 23:59 Intake Total 250 / 250 305 / 305 100 / 100 Output Total 500 / 500 Balance 250 / 250 -195 / -195 100 / 100 Lab / Micro Data Result Diagrams: 05/04/23 05:40 05/04/23 05:40 Labs: Laboratory Results - last 24 hr 05/03/23 11:33: POC Glucose 338 H 05/03/23 16:39: POC Glucose 233 H 05/03/23 21:47: POC Glucose 318 H 05/04/23 05:40: WBC 4.4, RBC 3.82 L, Hgb 10.1 L, Hct 29.0 L, MCV 75.9 L, MCH 26.4 L, MCHC 34.8, RDW Std Deviation 45.2 H, RDW Coeff of Kailey 16.7 H, Plt Count 110 L, MPV 9.1, Neut % (Auto) Not Reportable, Absolute Neuts (auto) 4.0, Absolute Lymphs (auto) 0.17 L, Total Counted 100, Neutrophils % (Manual) 86 H, Band Neutrophils % 6 H, Lymphocytes % (Manual) 4 L, Monocytes % (Manual) 3, Myelocytes % 1 H, Diff Path Review March, Platelet Estimate SLT DEC, Anisocytosis 1+, Microcytosis 1+ 05/04/23 05:40: Sodium 135 L, Potassium 3.7, Chloride 109 H, Carbon Dioxide 18.0L, Anion Gap 8, BUN 26 H, Creatinine 0.94, Estim Creat Clear Calc 64.52, Est GFR(MDRD) Af Amer 102, Est GFR (MDRD) Non-Af 84, BUN/Creatinine Ratio 27.7 H, Glucose 250 H, Calcium 8.8 05/04/23 05:40: PT 15.5 H, INR 1.2, APTT 38.0 H 05/04/23 06:00: POC Glucose 236 H Micro: Microbiology 05/03/23 03:50 Sputum, Expectorated/Coughed Gram Stain - Final 05/03/23 06:35 Stool Stool Occult Blood (CRYSTAL) - Final Occult Blood Positive 05/02/23 17:15 Mucosa - Nasopharyngeal Respiratory Panel (PCR) - Final 05/02/23 12:16 Nasal Secretion SARS-CoV-2 Antigen (Rapid) - Final Rhythm Strip Rhythm Strip: Sinus Rhythm Rate: 90 Ectopy: None Physical Exam Const no apparent distress Constitutional Narrative: up in chair. HEENT head/scalp atraumatic and moist oral mucous membranes Resp normal respiratory effort, no retractions, no use of accessory muscles and clearto auscultation bilaterally Cardio regular rate, regular rhythm, S1 normal heart sound and S2 normal heart sound GI normal to inspection, nondistended, normoactive bowel sounds and soft to palpation Neuro oriented x3 and CN's II-XII intact bilaterally Assessment & Plan Assessment/Plan (1) Pneumonitis: PLAN: Patient does not meet criteria for acute hypoxic respiratory failure Etiology is unclear: infectious/Keytruda induced pneumonitis/COPD exacerbation Pulm following. Testing: * CT of the chest demonstrated small chronic nonocclusive right lower lobe pulmonary embolus, new 3 mm spiculated right lower lobe nodule and left lower lobe pulmonary nodules measuring 8 mm suspicious for metastasis, progression of mild mediastinal and hilar lymphadenopathy, mild pneumonitis, bronchiectasis * COVID 19 and resp panel negative. SCx pending. BCx negative. Treatment * Continue Levaquin 750 mg daily through the . * IV steroids 40 every 8 and hold home Decadron-Transition back to Decadron at discharge * Aggressive pulmonary toilet: I-S/Acapella * Patient had echocardiogram done on January 13, 2023 that showed an EF of 65% and no evidence of diastolic dysfunction (2) Pulmonary emboli: PLAN: Right lower lobe nonocclusive PE Hold anticoagulation--> patient with guaiac positive stool and drop in hemoglobin along with iron deficiency anemia Not likely etiology for acute shortness of breath and hypoxia No signs of cardiac strain Check duplex of LE. If unable to anticoagulate w + PE, then may need to considerIVC filter. (3) GI bleed: PLAN: Guaiac stool was positive Iron studies are consistent with iron deficiency Suspect upper with steroid use N.p.o. after midnight Hold anticoagulation and aspirin Start Protonix drip GI consulted with plans for EGD tomorrow (4) Diabetes mellitus, type 2: PLAN: Likely Decadron induced Hemoglobin A1c was 7.4 consistent with diabetes Accu-Cheks Sliding scale insulin We will likely plan for diet control at discharge (5) Adenocarcinoma of right lung: PLAN: Poorly differentiated adenocarcinoma of the lung/metastatic left renal cell carcinoma Left radical nephrectomy 2005January 28, 2021--> Greening CT of chest showed spiculated partially cavitary massin the right lower lobe--> CT-guided biopsy demonstrated moderately to poorly differentiated adenocarcinoma of the lung primary--> March 2021 VATS converted to right muscle-sparing thoracotomy with right lower lobectomy, right upper lobe wedge resection and right middle lobe wedge resection with mediastinal lymph node dissection (positive lymph nodes noted at this time)--> MRI October 2022 showed 1.6 cm enhancing mass in the left posterior parietal lobe concerning for hemorrhagic metastasis and large surrounding edema--> follow-up MRI December 16, 2022 shows increasing size of metastatic mass in the left posterior parietal lobe--> CT of chest abdomen pelvis December 29, 2022 showed persistent solid mass in the lower pole of the right kidney with slight increase in size since August, chronic interstitial changes in both lungs--> follow-up MRI January 2023 shows persistent hemorrhagic metastasis--> follow-up chest abdomen pelvis CT 2022 shows an enlarged right posterior mediastinal lymph node and stable 4.2 cm right renal mass--> MRI brain March 2023 shows doubling in size of mass in the posterior medial aspect of the left parietal lobe with surrounding vasogenic edema that had slightly increased and no further metastatic lesions--> MRI spectroscopy April 16, 2023 showed spectroscopy and perfusion findings medial and dorsal aspects of the treated presumed left parietal metastasis compatible with viable tumor with more extensive surrounding radiation necrosis May 07, 2021 pembrolizumab plus axitinib for metastatic RCC/Axitinib discontinued May 2021 due to hypertensive crisis Keytruda single agent May 07 ?July 30,? 2020 (5 cycles)? [place] but held in August 2021 due to ELANA.? Resumed November 26, 2021 Stereotactic brain radiation at [place] October 28, 2022 a single fraction with10 MV [address] of chest at this time shows new findings in the lung With regards to brain metastasis patient has a ointment with neurosurgery on Thursday in [place] -Will likely need to be canceled and rescheduled -Holding Decadron while on IV Solu-Medrol (6) Anemia: PLAN: microcytic iron low, ferritin high, however. will change iron to Ferrous sulfate 325 QOD. PLAN: Plan Chronic conditions: * CAD/hypertension/zkdzocfmehibmx-HRU-PTB-LPLB w/ 2.25 x 18 mm Biodivysio Stent x 2, BMS-OM1 w/ 2.25 x 18 mm Biodivysio Stent and 2.25 x 18 mm Pixel Stent and MARVIN- Prox LCx w/ 3.5 x 18 mm Cypher Stent 07/17/2003-Hold home aspirin for now and restart when okay with GI-Continue home amlodipine-continue home carvedilol-Continue home rosuvastatin-Continue home hydralazine * Microcytic anemia-1 g hemoglobin drop overnight-Hold anticoagulation- Consistent with iron deficiency-EGD for tomorrow-IV iron x3 days 200 mg-We will need to discharge on oral iron * Thrombocytopenia-Appears to be chronic and is stable-Likely related to ongoing chemotherapy and cancer treatment-Counts are stable and greater than 100,000 * Aortic valve gjltwfip-Sdba-Js acute issues-Most recent echocardiogram shows stability * COPD-PFTs show only mild large airway obstructive ventilatory defect-O2 dependent at baseline-No exertional hypoxemia noted on 6-minute walk test earlier this year-Continued outpatient follow-up with pulmonary medicine after discharge DVT prophylaxis -Fully anticoagulated with Eliquis CODE STATUS -Full code verified on admission Charges/Coding Visit Charges Inpatient E&M: 41144 Subs Hosp L2 05/04/23 1259 <Electronically signed by Khalif Quevedo DO> Cosigner Signature (if applicable): CC: ~ Signed [facility] Work Phone: 1(741) 238-560806-26-2023 Consult note Author Michael Chambers [facility] May 04, 2023 12:30pm Note Date/Time May 04, 2023 11:4 3am [facility] Medical Records Department [address] [place] [address] Consultation - GI 05/03/23 1142 MR#: [id number] Acct: [id number] Name: KENN ARSHAD Rep #:[id number] : 1955 67 From: Michael Chambers DO PCP: Dr. Jacob Jennings DO Status:AD M IN Location: [place] [address] HPI Consult Data Date of Consult: 05/03/23 HPI Narrative Reason for Consultation: Anemia fecal occult positive stools HPI Narrative: KENN ARSHAD, is a 67 M who who presented to the emergency department at [facility] on 05/02/2023 complaining of shortness of breath.? Patient reports this has been ongoing for about the last 2 weeks but worsening as of recently.? He has had low-grade temperatures at home and complains of feeling chilled.? He is currently undergoing treatment for metastatic renal cellcarcinoma and has a history of moderately to poorly differentiated adenocarcinoma of the right lung for which she has had previous lung resection.? Patient is not oxygen dependent at baseline but currently requiring 3 to 4 L supplemental nasal cannula.? He is on Keytruda for his metastatic renal cell carcinoma. In the ER, patient was noted to have a temperature of 100.4 ?F, but was normotensive and saturating 87% on room air.? Patient responded to minimal nasal cannula oxygen.? Laboratory work-up showed a white blood cell count of 5.5, hemoglobin of 11.4 and platelets of 105.? Chemistries showed a bicarbonate of 19 with normal renal function and a glucose of 169.? Lactate was within normal limits.? BNP was 35.? Chest x-ray showed a possible retrocardiac opacity and this was subsequently followed up by CTA of the chest showing nodules suspicious for metastasis and groundglass opacities.? Patient was placed on antibiotics, supplemental oxygen, bronchodilators and admitted to the floor for further evaluation. CT of the chest also showed pulmonary embolism. He was started coagulation. However his hemoglobin started to drop. His stools were checked and they were positive for blood. I was consulted for management of acute blood loss anemia. [facility] Medical History (Updated 05/04/23 @ 12:[address] Rodriguez Friend, DO) Abnormal colonoscopy Adenocarcinoma of right lung Alcohol use Anemia Atherosclerotic heart disease of [place] coronary artery without angina pectoris 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 Contact with or suspected exposure to other viral communicable disease COPD (chronic obstructive pulmonary disease) COVID-19 Diabetes mellitus, type 2 Dyspnea Easy bruising Elevated troponin (05/15/21) Encephalopathy (05/15/21) Encounter for immunotherapy Encounter for immunotherapy Epistaxis Essential (primary) hypertension Former smoker Frequent headaches Gastric reflux History of primary malignant neoplasm of left kidney Hx of radiation therapy Hyperlipidemia Hyponatremia Imbalance Iron deficiency anemia due to chronic blood loss 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 Nonrheumatic aortic (valve) stenosis with insufficiency Pneumonia Port-A-Cath in place Seizure (05/15/21) Sinus congestion Skin cancer Thrombocytopenia Wears dentures Wears glasses Home Medications aspirin 81 mg tablet,delayed release 81 mg PO DAILY HE[facility] HE[facility] 08/18/18 [History Last Taken 06/13/21] rosuvastatin 40 mg tablet (Crestor) 40 mg PO DAILY CHOLESTEROL 08/18/18 [History Last Taken 06/12/21] carvedilol 25 mg tablet 25 mg PO BID blood pressure 04/30/21 [History Last Taken 06/13/21] albuterol sulfate 90 mcg/actuation aerosol inhaler 1 puff inhalation Q6H PRN SOB05/31/21 [History Last Taken 06/12/21] hydralazine 50 mg tablet 50 mg PO BID diuretic 05/31/21 [History Last Taken 06/13/21] lidocaine-prilocaine 2.5 %-2.5 % topical cream 1 applic topical ONCE PRN Port access 30 days #30 grams 01/28/22 [Rx Last Taken Unknown] amlodipine 10 mg tablet 10 mg PO DAILY Check with primary doctor 11/19/22 [History Last Taken Unknown] esomeprazole magnesium 20 mg capsule,delayed release (Nexium) 20 mg PO DAILY #30caps 11/21/22 [Rx Last Taken Unknown] ipratropium 0.5 mg-albuterol 3 mg (2.5 mg base)/3 mL nebulization soln 3 ml inhalation Q4H PRN shortness of breath or wheezing #180 mL 11/24/22 [Rx Last Taken Unknown] dexamethasone 4 mg tablet 2 mg PO DAILY steroid 05/02/23 [History Last Taken Unknown] Allergy/AdvReac Type Severity Reaction Status Date / Time No Known Allergies Allergy Verified 05/02/23 10:44 Family History Sister Diabetes CAD (coronary artery disease) Mother CVA (cerebral vascular accident) CAD (coronary artery disease) Lung cancer Father CAD (coronary artery disease) Brother CAD (coronary artery disease) Surgical History History of coronary angioplasty (01/05/04) History of coronary artery stent placement (07/17/03) History of lobectomy of lung History of nephrectomy, left Social History Smoking Status: Former smoker Tobacco: How many years used: 40 second hand exposure: No alcohol intake: current alcohol intake frequency: a few times a month Alcohol type: beer substance use type: does not use seatbelt use: always do you feel safe at home: Yes ROS ROS Narrative See HPI Physical Exam Const alert and no apparent distress Constitutional Narrative: Sitting in bedside recliner. General Appearance: cooperative HEENT normocephalic, head/scalp atraumatic and moist oral mucous membranes Eyes PERRL, EOMs intact bilaterally and conjunctivae normal Neck supple General: trachea midline Chest inspection of chest normal Resp normal respiratory effort Auscultation: diminished lung sounds; Negative for rales, rhonchi or wheezes Cardio regular rate and regular rhythm GI normal to inspection, nondistended, normoactive bowel sounds Extremity no clubbing, cyanosis or edema Skin no rashes or lesions noted Neuro oriented x3, CN's II-XII intact bilaterally and moves all extremities Psych cooperative and affect normal Lab / Micro Data Result Diagrams: 05/04/23 05:40 05/04/23 05:40 Labs: Laboratory Results - last 24 hr 05/03/23 11:33: POC Glucose 338 H 05/03/23 16:39: POC Glucose 233 H 05/03/23 21:47: POC Glucose 318 H 05/04/23 05:40: WBC 4.4, RBC 3.82 L, Hgb 10.1 L, Hct 29.0 L, MCV 75.9 L, MCH 26.4 L, MCHC 34.8, RDW Std Deviation 45.2 H, RDW Coeff of Kailey 16.7 H, Plt Count 110 L, MPV 9.1, Neut % (Auto) Not Reportable, Absolute Neuts (auto) 4.0, Absolute Lymphs (auto) 0.17 L, Total Counted 100, Neutrophils % (Manual) 86 H, Band Neutrophils % 6 H, Lymphocytes % (Manual) 4 L, Monocytes % (Manual) 3, Myelocytes % 1 H, Diff Path Review May , Platelet Estimate SLT DEC, Anisocytosis 1+, Microcytosis 1+ 05/04/23 05:40: Sodium 135 L, Potassium 3.7, Chloride 109 H, Carbon Dioxide 18.0L, Anion Gap 8, BUN 26 H, Creatinine 0.94, Estim Creat Clear Calc 64.52, Est GFR(MDRD) Af Amer 102, Est GFR (MDRD) Non-Af 84, BUN/Creatinine Ratio 27.7 H, Glucose 250 H, Calcium 8.8 05/04/23 05:40: PT 15.5 H, INR 1.2, APTT 38.0 H 05/04/23 06:00: POC Glucose 236 H 05/04/23 10:33: Procalcitonin 0.10 H 05/04/23 11:16: POC Glucose 189 H Micro: Microbiology 05/03/23 03:50 Sputum, Expectorated/Coughed Gram Stain - Final 05/03/23 03:50 Sputum, Expectorated/Coughed Respiratory Culture - Preliminary Appears to be normal respiratory laure. Further studies to follow. 05/03/23 06:35 Stool Stool Occult Blood (CRYSTAL) - Final Occult Blood Positive Rhythm Strip Rhythm Strip: Sinus Rhythm Rate: 90 Ectopy: None Assessment & Plan Assessment/Plan (1) GI bleed: (2) Anemia: QUALIFIERS: Anemia type: iron deficiency Iron deficiency anemia type: unspecified iron deficiency Qualified Code(s): D50.9 - Iron deficiency anemia, unspecified PLAN: Plan 67-year-old gentleman with history of metastatic renal cell carcinoma to the lungs and brain (on steroids) status post VATS surgery, chemotherapy, on Keytruda who develops worsening shortness of breath and discovered to have pneumonia and pulmonary emboli. He was also discovered to have worsening iron deficiency anemia with decrease in blood count after undergoing anticoagulation. Recommendation: PPI drip , hold anticoagulation ,upper endoscopy to evaluate hisupper GI tract. He was explained alternatives, risk, benefits include not withstanding bleeding, infection, sepsis, perforation, need for emergent surgerydeath. He will have an ASA of 3. Charges/Coding Visit Charges Inpatient E&M: 72518 Init Hosp L3 05/04/23 1230 <Electronically signed by Michael Chambers DO> Cosigner Signature (if applicable): CC: JOSIE Dunne; Dr. Thaddeus Patel MD; Dr. Benito Malcolm DO; Dr. Jacob Jennings DO; Dr. Tara Mae DO; Dr. Tu Zhang MD; Dr. Jm Varner MD~ Signed [facility] Work Phone: 1(688) 413-246906-26-2023 Procedure [facility] 05-04-2023 Procedure [facility]06-26-2023 Progress note Author Benito Malcolm [facility] May 04, 2023 10:15am Note Date/Time May 04, 2023 8:55 am [facility] Medical Records Department [address] [place] [address] Progress Note - Worship Director 05/04/23 0853 MR#: [id number] Acct: [id number] Name: KENN ARSHAD Rep #:[id number] : 1955 67 From: Benito Malcolm DO PCP: Dr. Jacob Jennings DO Status:AD M IN Location: [place] [address] Assessment & Plan Assessment/Plan (1) SOB (shortness of breath): (2) COPD (chronic obstructive pulmonary disease): (3) 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: (4) Pulmonary emboli: PLAN: Plan RECOMMENDATIONS: 1. I agree with continuing antimicrobials, bronchodilators and steroids for now. 2. Continue to wean supplemental oxygen to maintain saturations at or above 90%. 3. Encourage incentive spirometer use and mobilize patient as tolerated. 4. Tentative plans for upper endoscopy. IMPRESSIONS: 1. Shortness of breath and hypoxemia Unclear etiology. CTA chest completed on May 02 demonstrated a small nonocclusive right lower lobe pulmonary embolism along with groundglass opacities and mosaic attenuation. The patient is on Keytruda as an outpatient, raising the possibility for medication induced pneumonitis. Alternatively, chemical pneumonitis secondary to environmental inhalation of pool chemicals is also a possibility. Congestive heart failure seems unlikely. Therefore it is certainly reasonable to continue empiric antibiotics along with bronchodilators and steroids. The patient does report interval improvement in his breathing quality since yesterday. 2. 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 3. Microcytic anemia/aortic valve stenosis/CAD/COPD/hyperglycemia/chronic steroids Complicates care, management, recovery and prognosis. Continue home medicationsas indicated. This note was generated with myGreekation software. It may contain incorrectwords, spelling, and punctuation that were not noted in checking the note beforesigning. Subjective Subjective The patient was seen and examined at the bedside this morning. Events from the last 24 hours have been reviewed. The patient is currently afebrile, hemodynamically stable and maintaining appropriate oxygen saturations on 3 L/minvia nasal cannula. The patient remains on antimicrobials, bronchodilators and IV steroids. He does report interval improvement in his breathing quality sinceyesterday. According to the patient, he is going to be undergoing an upper endoscopy at some point today. Objective Data Objective Data The patient's most recent lab work, culture data and imaging studies have all been personally reviewed. Infectious work-up has been unrevealing to date. Vital Signs: Vital Signs Temp Pulse Resp BP Pulse Ox O2 Del Method O2 Flow Rate 97.8 F 88 20 H 135/63 H 93 Nasal Cannula 3 05/04/23 07:46 05/04/23 07:46 05/04/23 07:46 05/04/23 07:46 05/04/23 07:46 05/04/23 07:46 05/04/23 07:46 Oxygen Flow Rate (L/min) 3 Oxygen Delivery Method Nasal Cannula Weight: 165 lb 0.009 oz Body Mass Index (BMI) 29.8 Intake & Output: Intake and Output for Last 24 Hours 05/02/23 05/03/23 05/04/23 23:59 23:59 23:59 Intake Total 250 / 250 305 / 305 100 / 100 Output Total 500 / 500 Balance 250 / 250 -195 / -195 100 / 100 Lab / Micro Data Attestation: I reviewed the patient's lab results. Result Diagrams: 05/04/23 05:40 05/04/23 05:40 Labs: Laboratory Results - last 24 hr 05/03/23 11:33: POC Glucose 338 H 05/03/23 16:39: POC Glucose 233 H 05/03/23 21:47: POC Glucose 318 H 05/04/23 05:40: WBC 4.4, RBC 3.82 L, Hgb 10.1 L, Hct 29.0 L, MCV 75.9 L, MCH 26.4 L, MCHC 34.8, RDW Std Deviation 45.2 H, RDW Coeff of Kailey 16.7 H, Plt Count 110 L, MPV 9.1, Neut % (Auto) Not Reportable, Absolute Neuts (auto) 4.0, Absolute Lymphs (auto) 0.17 L, Total Counted 100, Neutrophils % (Manual) 86 H, Band Neutrophils % 6 H, Lymphocytes % (Manual) 4 L, Monocytes % (Manual) 3, Myelocytes % 1 H, Diff Path Review May , Platelet Estimate SLT DEC, Anisocytosis 1+, Microcytosis 1+ 05/04/23 05:40: Sodium 135 L, Potassium 3.7, Chloride 109 H, Carbon Dioxide 18.0L, Anion Gap 8, BUN 26 H, Creatinine 0.94, Estim Creat Clear Calc 64.52, Est GFR(MDRD) Af Amer 102, Est GFR (MDRD) Non-Af 84, BUN/Creatinine Ratio 27.7 H, Glucose 250 H, Calcium 8.8 05/04/23 05:40: PT 15.5 H, INR 1.2, APTT 38.0 H 05/04/23 06:00: POC Glucose 236 H Micro: Microbiology 05/03/23 03:50 Sputum, Expectorated/Coughed Gram Stain - Final 05/03/23 06:35 Stool Stool Occult Blood (CRYSTAL) - Final Occult Blood Positive 05/02/23 17:15 Mucosa - Nasopharyngeal Respiratory Panel (PCR) - Final 05/02/23 12:16 Nasal Secretion SARS-CoV-2 Antigen (Rapid) - Final Rhythm Strip Rhythm Strip: Sinus Rhythm Rate: 90 Ectopy: None Physical Exam Const alert and no apparent distress Constitutional Narrative: Sitting in bedside recliner. General Appearance: cooperative HEENT normocephalic, head/scalp atraumatic and moist oral mucous membranes Eyes PERRL, EOMs intact bilaterally and conjunctivae normal Neck supple General: trachea midline Chest inspection of chest normal Resp normal respiratory effort Auscultation: diminished lung sounds; Negative for rales, rhonchi or wheezes Cardio regular rate and regular rhythm GI normal to inspection, nondistended, normoactive bowel sounds Extremity no clubbing, cyanosis or edema Skin no rashes or lesions noted Neuro oriented x3, CN's II-XII intact bilaterally and moves all extremities Psych cooperative and affect normal Charges/Coding Visit Charges Inpatient E&M: 59271 Subs Hosp L2 05/04/23 1015 <Electronically signed by Benito Malcolm DO> Cosigner Signature (if applicable): CC: ~ Signed [facility] Work Phone: 1(208) 126-181206-25-2023 Progress note Author Tara Mae [facility] May 03, 2023 12:31pm Note Date/Time May 03, 2023 12:1 5pm [facility] Medical Records Department [address] [place] [address] Progress Note - Hospitalist 05/03/23 1213 MR#: [id number] Acct: [id number] Name: KENN ARSHAD Rep #:[id number] : 1955 67 From: Tara Mae DO PCP: Dr. Jacob Jennings DO Status:AD M IN [id number] Reason for Visit Reason for Visit: Shortness of breath Subjective Subjective Patient states she feels about 70% better since being admitted. Oxygen has beenweaned from 4 to 2 L. Patient states he did just get up and move around and hadsignificantly less shortness of breath than he had prior to being admitted. Objective Data Objective Data Vital Signs: Vital Signs Temp Pulse Resp BP Pulse Ox O2 Del Method O2 Flow Rate 97.8 F 88 18 145/70 H 95 Nasal Cannula 2 05/03/23 09:45 05/03/23 10:47 05/03/23 10:47 05/03/23 10:32 05/03/23 10:47 05/03/23 10:48 05/03/23 10:48 Oxygen Flow Rate (L/min) 2 Oxygen Delivery Method Nasal Cannula Weight: 74.843 kg Body Mass Index (BMI) 29.8 Intake & Output: Intake and Output for Last 24 Hours 05/01/23 05/02/23 05/03/23 23:59 23:59 23:59 Intake Total 250 / 250 Balance 250 / 250 Lab / Micro Data Result Diagrams: 05/03/23 05:21 05/03/23 05:21 Labs: Laboratory Results - last 24 hr 05/02/23 11:05: Iron 31 L, TIBC 364, Iron Saturation 8.5 L, Ferritin 969 H 05/02/23 17:57: POC Glucose 183 H 05/02/23 18:03: Hemoglobin A1c 7.4 H 05/03/23 05:21: WBC 3.4 L, RBC 4.17 L, Hgb 10.6 L, Hct 31.7 L, MCV 76.0 L, MCH 25.4 L, MCHC 33.4, RDW Std Deviation 46.1 H, RDW Coeff of Kailey 16.8 H, Plt Count 105 L, MPV 9.5, Neut % (Auto) Not Reportable, Absolute Neuts (auto) 2.7, Absolute Lymphs (auto) 0.40 L, Total Counted 100, Neutrophils % (Manual) 67, Band Neutrophils % 12 H, Lymphocytes % (Manual) 12 L, Monocytes % (Manual) 2, Basophils % (Manual) 1, Metamyelocytes % 2 H, Myelocytes % 4 H, Diff Path ReviewMay foll, Platelet Estimate SLT DEC, RBC Morphology NORM C+C 05/03/23 05:21: Sodium 135 L, Potassium 3.7, Chloride 106, Carbon Dioxide 20.0 L, Anion Gap 9, BUN 21 H, Creatinine 0.75, Estim Creat Clear Calc 60.65, Est GFR (MDRD) Af Amer 132, Est GFR (MDRD) Non-Af 109, BUN/Creatinine Ratio 27.9 H, Glucose 204 H, Calcium 8.6, Phosphorus 4.0, Magnesium 2.2, Total Bilirubin 0.40,AST 30, ALT 23, Alkaline Phosphatase 46, Total Protein 5.8 L, Albumin 2.5 L, Globulin 3.3, Albumin/Globulin Ratio 0.8 L, TSH 0.67 05/03/23 05:39: POC Glucose 197 H 05/03/23 11:33: POC Glucose 338 H Micro: Microbiology 05/03/23 06:35 Stool Stool Occult Blood (CRYSTAL) - Final Occult Blood Positive 05/02/23 17:15 Mucosa - Nasopharyngeal Respiratory Panel (PCR) - Final 05/02/23 12:16 Nasal Secretion SARS-CoV-2 Antigen (Rapid) - Final Radiography Diagnostic Testing: Radiology Impression Chest X-Ray 05/02/23 10:55 IMPRESSION: 2 cm left retrocardiac opacity, possible focus of infection or large pulmonary nodule. Recommend follow-up to resolution or CT. Mild right basilar atelectasis with unchanged mild right pleural effusion. Electronically Signed: Jesusita Borges MD at 12:32 EDT , Chest CTA 05/02/23 12:01 IMPRESSION: No evidence of acute pulmonary embolism. Small chronic nonocclusive right lower lobar pulmonary embolism. New 3 mm spiculated right lower lobe nodule and left lower lobe pulmonary nodules measuring up to 8 mm, suspicious for metastases. Progression of mild mediastinal and hilar lymphadenopathy. Mild pneumonitis or atypical pneumonia with mosaic attenuation pattern and groundglass opacities with mild septal thickening most confluent in the left upper lobe inferiorly. Chronic scarring in the right lung with pleural thickening. Enhancing right renal mass. Left nephrectomy. Electronically Signed: Jesusita Borges MD at 13:17 EDT , Rhythm Strip Rhythm Strip: Sinus Rhythm Rate: 90 Ectopy: None Physical Exam Const alert, oriented x3, no apparent distress and well nourished Constitutional Narrative: Obese, upper middle-aged white male, sitting up in a chair at the bedside, appears older than stated age, appears comfortable and nontoxic General Appearance: cooperative HEENT normocephalic, head/scalp atraumatic, hearing grossly normal bilaterally and moist oral mucous membranes HEENT Narrative: No thrush, Mallampati 3, dentures in place Eyes PERRL, EOMs intact bilaterally and conjunctivae normal Eyes Narrative: No scleral icterus Neck no lymphadenopathy, supple, no JVD and no carotid bruits Neck Narrative: Trachea midline no thyroid enlargement Resp normal respiratory effort, no retractions, no use of accessory muscles and clearto auscultation bilaterally Resp Narrative: Diffusely diminished but clear, absent breath sounds right base and midlung region, very few scattered wheezes Auscultation: wheezes; Negative for rales or rhonchi Cardio regular rate, regular rhythm, S1 normal heart sound, S2 normal heart sound, no murmurs, no rub, no gallops and no clicks GI normal to inspection, nondistended, normoactive bowel sounds, soft to palpation and non-tender Extremity no clubbing, cyanosis or edema Extremity Narrative: Pedal pulses are plus Skin No no rashes or lesions noted, no wounds, skin turgor normal, no jaundice, no petechiae and no mottling Skin Narrative: Right port [id number], no drainage or erythema, scattered ecchymosis on arms Neuro oriented x3, moves all extremities and no focal motor deficits Speech: speech normal Psych affect normal Psych Narrative: Very pleasant, appropriately interactive Assessment & Plan Assessment/Plan (1) Hypoxemia: (2) SOB (shortness of breath): (3) Pulmonary emboli: (4) Hyperglycemia: PLAN: Plan Shortness of breath/hypoxia -Patient does not meet criteria for acute hypoxic respiratory failure -Etiology is unclear at this point--> infectious/Keytruda induced pneumonitis/COPD exacerbation however this seems less likely due to his baselinelung function -CT of the chest demonstrated small chronic nonocclusive right lower lobe pulmonary embolus, new 3 mm spiculated right lower lobe nodule and left lower lobe pulmonary nodules measuring 8 mm suspicious for metastasis, progression of mild mediastinal and hilar lymphadenopathy, mild pneumonitis, bronchiectasis -BNP is within normal limits -Upon admission was on 4 L supplemental nasal cannula has been weaned to 2 L -Does not require oxygen at baseline -Continue to wean as able -Low-grade fever present at 100.4 so will rule out infectious etiology -Sputum cultures pending -Respiratory viral panel was unremarkable -Continue Levaquin 750 mg daily -EKG shows normal QTc -IV steroids 40 every 8 and hold home Decadron -Transition back to Decadron at discharge -Aggressive pulmonary toilet -I-S/Acapella -Patient had echocardiogram done on January 13, 2023 that showed an EF of 65% and no evidence of diastolic dysfunction -Pulmonary medicine following-appreciate input Right lower lobe nonocclusive PE -Hold anticoagulation--> patient with guaiac positive stool and drop in hemoglobin along with iron deficiency anemia -Not likely etiology for acute shortness of breath and hypoxia -No signs of cardiac strain DM-2 -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 -Left radical nephrectomy 2005 -January 28, 2021--> Greening CT of chest showed spiculated partially cavitary mass in the right lower lobe--> CT-guided biopsy demonstrated moderately to poorly differentiated adenocarcinoma of the lung primary--> March 2021 VATS converted to right muscle-sparing thoracotomy with right lower lobectomy, right upper lobe wedge resection and right middle lobe wedge resection with mediastinal lymph node dissection (positive lymph nodes noted at this time)--> MRI October 2022 showed 1.6 cm enhancing mass in the left posterior parietal lobe concerning for hemorrhagic metastasis and large surrounding edema--> follow-up MRI December 16, 2022 shows increasing size of metastatic mass in the left posterior parietal lobe--> CT of chest abdomen pelvis December 29, 2022 showed persistent solid mass in the lower pole of the right kidney with slight increase in size since August, chronic interstitial changes in both lungs--> follow-up MRI January 2023 shows persistent hemorrhagic metastasis--> follow-up chest abdomen pelvis CT March 13, 2023 shows an enlarged right posterior mediastinal lymph node and stable 4.2 cm right renal mass--> MRI brain March 2023 shows doubling in size of mass in the posterior medial aspect of the left parietal lobe with surrounding vasogenic edema that had slightly increased and no further metastatic lesions--> MRI spectroscopy April 16, 2023 showed spectroscopy and perfusion findings medial and dorsal aspects of the treated presumed left parietal metastasis compatible with viable tumor with more extensive surrounding radiation necrosis - May 07, 2021 pembrolizumab plus axitinib for metastatic RCC/Axitinib discontinued May 2021 due to hypertensive crisis -Keytruda single agent May 07 ?July 30,? 2020 (5 cycles)? [place] but held in August 2021 due to ELANA.? Resumed November 26, 2021 -Stereotactic brain radiation at [place] October 28, 2022 a single fraction with 10 MV photons. -CT of chest at this time shows new findings in the lung -Consult pulmonary medicine -With regards to brain metastasis patient has a ointment with neurosurgery on Thursday in [place] -Will likely need to be canceled and rescheduled -Holding Decadron while on IV Solu-Medrol -Most recent oncology notes reviewed CAD/hypertension/hyperlipidemia -LFJ-ZKR-LYOD w/ 2.25 x 18 mm Biodivysio Stent x 2, BMS-OM1 w/ 2.25 x 18 mm Biodivysio Stent and 2.25 x 18 mm Pixel Stent and MARVIN-Prox LCx w/ 3.5 x 18 mm Cypher Stent 07/17/2003 -Hold home aspirin for now and restart when okay with GI -Continue home amlodipine -continue home carvedilol -Continue home rosuvastatin -Continue home hydralazine Microcytic anemia -1 g hemoglobin drop overnight -Hold anticoagulation -Consistent with iron deficiency -EGD for tomorrow -IV iron x3 days 200 mg -We will need to discharge on oral iron Thrombocytopenia -Appears to be chronic and is stable -Likely related to ongoing chemotherapy and cancer treatment -Counts are stable and greater than 100,000 Aortic valve stenosis -Mild -No acute issues -Most recent echocardiogram shows stability COPD -PFTs show only mild large airway obstructive ventilatory defect -O2 dependent at baseline -No exertional hypoxemia noted on 6-minute walk test earlier this year -Continued outpatient follow-up with pulmonary medicine after discharge DVT prophylaxis -Fully anticoagulated with Eliquis CODE STATUS -Full code verified on admission Charges/Coding Visit Charges Inpatient E&M: 47157 Subs Hosp L3 05/03/23 1231 <Electronically signed by Tara Mae DO> Cosigner Signature (if applicable): CC: ~ Signed [facility] Work Phone: [phone]) [phone] Consult note Author Thaddeus Patel [facility] May 03, 2023 10:27am Note Date/Time May 03, 2023 7:57 am [facility] Medical Records Department [address] [place] [address] Consultation - Worship Director 05/03/23 0740 MR#: [id number] Acct: [id number] Name: KENN ARSHAD Rep #:[id number] : 1955 67 From: Thaddeus Patel MD PCP: Dr. Jacob Jennings DO Status:AD M IN Location: [facility] [id number] Assessment & Plan Assessment/Plan (1) SOB (shortness of breath): (2) COPD (chronic obstructive pulmonary disease): (3) 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: (4) Pulmonary emboli: PLAN: Plan RECOMMENDATIONS: 1. Continue steroids, bronchodilators and antibiotics 2. Wean oxygen as tolerated 3. Increase activity as tolerated 4. Aggressive pulmonary toileting 5. Agree with systemic anticoagulation IMPRESSIONS: 1. Acute hypoxic respiratory insufficiency Unclear etiology. Patient does have scattered groundglass opacities consistent with pneumonitis more than acute lobar pneumonia. However, patient also has bronchiectasis, so pseudomonal or staph pneumonia would be a concern. However, this tends to be lumbar. Patient has relatively normal cardiac function with a normal BNP, so CHF is less likely. Chemical pneumonitis secondary to chemotherapy versus environmental inhalation of pool chemicals may also be contributing. Patient does have a nonocclusive PE, but did not have significant elevated pulmonary artery pressures to suggest CTEPH. Patient does appear to be improving on current therapy. No changes indicated at this time. 2. 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 Patient remains aggressive. Likely okay to continue with Keytruda for now, but chemical pneumonitis would be a concern. Patient reportedly is to see a neurosurgeon forbrain metastasis next week. Patient's primary forensic economist is Dr. Malcolm and antonio here tomorrow. 3. Microcytic anemia/aortic valve stenosis/CAD/COPD/hyperglycemia/chronic steroids Complicates care, management, recovery and prognosis. Likely okay to continue with baseline medications. Clinical suspicion for hyperglycemia secondary to steroids. Sliding scale insulin is likely appropriate. No indication for transfusion at this time. Despite poor long-term prognosis, patient does wish to be aggressive at this time. HPI Consult Data Date of Consult: 05/03/23 HPI Narrative Reason for Consultation: COPD exacerbation HPI Narrative: KENN ARSHAD is a 67 M, with past medical history listed below, who presents to [facility] on 05/02/2023 secondary to a 2-week history of cough productive of clear sputum. Patient has had some mild hemoptysis initially, but this resolved over 3 days. Patient did report a temporal relationship chemicals. Patient did have a low-grade fever with subjective chills. Patient denied any lower extremity swelling or chest pain. Patient does receive Keytruda for metastatic renal cancer. Patient states she is to seethe radiation oncologist tomorrow secondary to brain mets. Patient is not on oxygen at baseline and reportedly his COPD is very mild. In the ER, patient was noted to have a temperature of 100.4 ?F, but was normotensive and saturating 87% on room air. Patient responded to minimal nasalcannula oxygen. Laboratory work-up showed a white blood cell count of 5.5, hemoglobin of 11.4 and platelets of 105. Chemistries showed a bicarbonate of 19with normal renal function and a glucose of 169. Lactate was within normal limits. BNP was 35. Chest x-ray showed a possible retrocardiac opacity and this was subsequently followed up by CTA of the chest showing nodules suspiciousfor metastasis and groundglass opacities. Patient was placed on antibiotics, supplemental oxygen, bronchodilators and admitted to the floor for further evaluation. Overnight, patient feels subjectively much improved compared to previous. Patient states that he has had a cough with no to mild production of clear sputum. Patient is not reporting any fevers overnight. Patient feels like he has better energy today. Patient does admit that he has been using a Rototillerrecently and feels that this may have also exacerbated his respiratory status. Patient does not report any problems with chemotherapy. Review of systems otherwise negative from a constitutional, HEENT, respiratory, cardiovascular, GI, genitourinary, musculoskeletal, skin, neurologic, psychiatric and hematologic system unless stated above. 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 Contact with or suspected exposure to other viral communicable disease COPD (chronic obstructive pulmonary disease) COVID-19 Dyspnea Easy bruising Elevated troponin (05/15/21) Encephalopathy (05/15/21) Encounter for immunotherapy Encounter for immunotherapy Epistaxis Essential (primary) hypertension Former smoker Frequent headaches Gastric reflux History of primary malignant neoplasm of left kidney Hx of radiation therapy Hyperlipidemia Hyponatremia Imbalance Iron deficiency anemia due to chronic blood loss 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 Nonrheumatic aortic (valve) stenosis with insufficiency Pneumonia Port-A-Cath in place Seizure (05/15/21) Sinus congestion Skin cancer Thrombocytopenia Wears dentures Wears glasses Home Medications aspirin 81 mg tablet,delayed release 81 mg PO DAILY HEART HEALTH 08/18/18 [History Last Taken 06/13/21] rosuvastatin 40 mg tablet (Crestor) 40 mg PO DAILY CHOLESTEROL 08/18/18 [History Last Taken 06/12/21] carvedilol 25 mg tablet 25 mg PO BID blood pressure 04/30/21 [History Last Taken 06/13/21] albuterol sulfate 90 mcg/actuation aerosol inhaler 1 puff inhalation Q6H PRN SOB05/31/21 [History Last Taken 06/12/21] hydralazine 50 mg tablet 50 mg PO BID diuretic 05/31/21 [History Last Taken 06/13/21] lidocaine-prilocaine 2.5 %-2.5 % topical cream 1 applic topical ONCE PRN Port access 30 days #30 grams 01/28/22 [Rx Last Taken Unknown] amlodipine 10 mg tablet 10 mg PO DAILY Check with primary doctor 11/19/22 [History Last Taken Unknown] esomeprazole magnesium 20 mg capsule,delayed release (Nexium) 20 mg PO DAILY #30caps 11/21/22 [Rx Last Taken Unknown] ipratropium 0.5 mg-albuterol 3 mg (2.5 mg base)/3 mL nebulization soln 3 ml inhalation Q4H PRN shortness of breath or wheezing #180 mL 11/24/22 [Rx Last Taken Unknown] dexamethasone 4 mg tablet 2 mg PO DAILY steroid 05/02/23 [History Last Taken Unknown] Allergy/AdvReac Type Severity Reaction Status Date / Time No Known Allergies Allergy Verified 05/02/23 10:44 Family History Sister Diabetes CAD (coronary artery disease) Mother CVA (cerebral vascular accident) CAD (coronary artery disease) Lung cancer Father CAD (coronary artery disease) Brother CAD (coronary artery disease) Surgical History History of coronary angioplasty (01/05/04) History of coronary artery stent placement (07/17/03) History of lobectomy of lung History of nephrectomy, left Social History Smoking Status: Former smoker Tobacco: How many years used: 40 second hand exposure: No alcohol intake: current alcohol intake frequency: a few times a month Alcohol type: beer substance use type: does not use seatbelt use: always do you feel safe at home: Yes ROS ROS Narrative See HPI Physical Exam Const alert, oriented x3, no apparent distress and well nourished Constitutional Narrative: No conversational dyspnea appreciated General Appearance: cooperative HEENT normocephalic, head/scalp atraumatic, hearing grossly normal bilaterally and moist oral mucous membranes HEENT Narrative: Dentures noted Eyes PERRL, EOMs intact bilaterally and conjunctivae normal Eyes Narrative: No scleral icterus Neck no lymphadenopathy, supple, no JVD and no carotid bruits General: trachea midline Chest inspection of chest normal Chest Narrative: No pain to palpation Resp normal respiratory effort, no retractions, no use of accessory muscles and clearto auscultation bilaterally Resp Narrative: Patient receiving aerosol during my evaluation Auscultation: diminished lung sounds; Negative for rales, rhonchi or wheezes Cardio regular rate, regular rhythm, S1 normal heart sound, S2 normal heart sound, no murmurs, no rub, no gallops and no clicks GI normal to inspection, nondistended, normoactive bowel sounds, soft to palpation and non-tender Extremity no clubbing, cyanosis or edema Skin No no rashes or lesions noted, no wounds, skin turgor normal, no jaundice, no petechiae and no mottling Skin Narrative: Right port [id number], no drainage or erythema, scattered ecchymosis on arms Neuro oriented x3, CN's II-XII intact bilaterally, moves all extremities and no focal motor deficits Psych affect normal Psych Narrative: Very pleasant, appropriately interactive Medical Records Data Attestation: I reviewed the patient's medical records Lab / Micro Data Attestation: I reviewed the patient's lab results. Result Diagrams: 05/03/23 05:21 05/03/23 05:21 Labs: Laboratory Results - last 24 hr 05/02/23 11:05: WBC 5.5, RBC 4.49 L, Hgb 11.4 L, Hct 34.9 L, MCV 77.7 L, MCH 25.4 L, MCHC 32.7, RDW Std Deviation 48.4 H, RDW Coeff of Kailey 17.2 H, Plt Count 105 L, MPV 9.6, Neut % (Auto) Not Reportable, Absolute Neuts (auto) 4.6, Absolute Lymphs (auto) 0.44 L, Total Counted 100, Neutrophils % (Manual) 79 H, Band Neutrophils % 4, Lymphocytes % (Manual) 8 L, Monocytes % (Manual) 2, Metamyelocytes % 3 H, Myelocytes % 4 H, Diff Path Review May foll, Platelet Estimate ADEQUATE, RBC Morphology NORM C+C 05/02/23 11:05: Sodium 132 L, Potassium 3.7, Chloride 104, Carbon Dioxide 19.0 L, Anion Gap 9, BUN 18, Creatinine 0.97, Estim Creat Clear Calc 62.52, Est GFR (MDRD) Af Amer 99, Est GFR (MDRD) Non-Af 82, BUN/Creatinine Ratio 18.6, Glucose 169 H, Calcium 8.9, Troponin I High Sens 11 05/02/23 11:05: Lactic Acid 1.8 05/02/23 11:05: B-Natriuretic Peptide 34.6 05/02/23 11:05: Iron 31 L, TIBC 364, Iron Saturation 8.5 L, Ferritin 969 H 05/02/23 17:57: POC Glucose 183 H 05/02/23 18:03: Hemoglobin A1c 7.4 H 05/03/23 05:21: WBC 3.4 L, RBC 4.17 L, Hgb 10.6 L, Hct 31.7 L, MCV 76.0 L, MCH 25.4 L, MCHC 33.4, RDW Std Deviation 46.1 H, RDW Coeff of Kailey 16.8 H, Plt Count 105 L, MPV 9.5, Neut % (Auto) Not Reportable, Absolute Neuts (auto) 2.7, Absolute Lymphs (auto) 0.40 L, Total Counted 100, Neutrophils % (Manual) 67, Band Neutrophils % 12 H, Lymphocytes % (Manual) 12 L, Monocytes % (Manual) 2, Basophils % (Manual) 1, Metamyelocytes % 2 H, Myelocytes % 4 H, Diff Path ReviewMay foll, Platelet Estimate SLT DEC, RBC Morphology NORM C+C 05/03/23 05:21: Sodium 135 L, Potassium 3.7, Chloride 106, Carbon Dioxide 20.0 L, Anion Gap 9, BUN 21 H, Creatinine 0.75, Estim Creat Clear Calc 60.65, Est GFR (MDRD) Af Amer 132, Est GFR (MDRD) Non-Af 109, BUN/Creatinine Ratio 27.9 H, Glucose 204 H, Calcium 8.6, Phosphorus 4.0, Magnesium 2.2, Total Bilirubin 0.40,AST 30, ALT 23, Alkaline Phosphatase 46, Total Protein 5.8 L, Albumin 2.5 L, Globulin 3.3, Albumin/Globulin Ratio 0.8 L, TSH 0.67 05/03/23 05:39: POC Glucose 197 H Micro: Microbiology 05/02/23 17:15 Mucosa - Nasopharyngeal Respiratory Panel (PCR) - Final 05/02/23 12:16 Nasal Secretion SARS-CoV-2 Antigen (Rapid) - Final Rhythm Strip Rhythm Strip: Sinus Rhythm Rate: 90 Ectopy: None Radiology Impression Chest X-Ray 05/02/23 10:55 IMPRESSION: 2 cm left retrocardiac opacity, possible focus of infection or large pulmonary nodule. Recommend follow-up to resolution or CT. Mild right basilar atelectasis with unchanged mild right pleural effusion. Electronically Signed: Jesusita Borges MD at 12:32 EDT , Chest CTA 05/02/23 12:01 IMPRESSION: No evidence of acute pulmonary embolism. Small chronic nonocclusive right lower lobar pulmonary embolism. New 3 mm spiculated right lower lobe nodule and left lower lobe pulmonary nodules measuring up to 8 mm, suspicious for metastases. Progression of mild mediastinal and hilar lymphadenopathy. Mild pneumonitis or atypical pneumonia with mosaic attenuation pattern and groundglass opacities with mild septal thickening most confluent in the left upper lobe inferiorly. Chronic scarring in the right lung with pleural thickening. Enhancing right renal mass. Left nephrectomy. Electronically Signed: Jesusita Borges MD at 13:17 EDT , Charges/Coding Visit Charges Inpatient E&M: 31033 Init Hosp L3 05/03/23 1027 <Electronically signed by Thaddeus Patel MD> Cosigner Signature (if applicable): CC: JOSIE Dunne; Dr. Thaddeus Patel MD; Dr. Benito Malcolm DO; Dr. Jacob Jennings DO; Dr. Tara Mae DO; Dr. Tu Zhang MD; Dr. Jm Varner MD~ Signed [facility] Work Phone: [phone]) [phone] Discharge summary Author Indio Simon [facility] May 02, 2023 9:46pm Note Date/Time May 02, 2023 11:0 8am [facility] Medical Records Department [address] [place] [address] Emergency Department Summary 05/02/23 MR#: [id number] Acct: [id number] Name: KENN ARSHAD Rep #:[id number] : 1955 67 From: Indio Simon MD PCP: Dr. Jacob Jennings DO Status:AD M IN Location: [facility] [id number] HPI History of Present Illness Chief Complaint: Shortness of Breath Informant: patient and spouse/S.O. Onset/Context/Timing Onset: Weeks (2) Context: gradual and onset Timing: Continuous Quality: Positive for Dyspnea on exertion and Wheezing Current Severity: Moderate Maximum Severity: Moderate Worsened by: Exertion and Coughing Relieved by: Nothing Associated Symptoms cough, fever and clear sputum Chest Pain: Positive for None Narrative Narrative: Patient states he started getting short of breath 2 weeks ago and coughing up clear sputum, initial small amount of blood but that resolved after several days, after inhaling irritants 3 days in a row he states. He was exposed to mold in the basement, he was breathing in the dust from a LUL[employer] pool filter, and possibly some pool chlorine chemicals. He has a low-grade fever here, he believes he has been experiencing some fevers and chills at home off-and-on. Hedenies any orthopnea or lower extremity swelling. He is currently getting Keytruda for kidney cancer he has a remote history of lung cancer and had surgery with a part of his lung removed, and the states that he has metastases to the brain. He does not seem confused recently. He is weak today. He is not onhome oxygen and he and the significant other states several times his COPD is very mild. [facility] Medical History Abnormal colonoscopy Adenocarcinoma of right lung Alcohol use Anemia Atherosclerotic heart disease of [place] coronary artery without angina pectoris 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 Contact with or suspected exposure to other viral communicable disease COPD (chronic obstructive pulmonary disease) COVID-19 DDD (degenerative disc disease) Dyspnea Easy bruising Elevated troponin (05/15/21) Encephalopathy (05/15/21) Encounter for immunotherapy Encounter for immunotherapy Epistaxis Essential (primary) hypertension Former smoker Frequent headaches Gastric reflux History of primary malignant neoplasm of left kidney Hx of radiation therapy Hyperlipidemia Imbalance Iron deficiency anemia due to chronic blood loss 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 Nonrheumatic aortic (valve) stenosis with insufficiency Pneumonia Port-A-Cath in place Seizure (05/15/21) Sinus congestion Skin cancer Wears dentures Wears glasses Home Medications aspirin 81 mg tablet,delayed release 81 mg PO DAILY HEART HEALTH 08/18/18 [History Last Taken 06/13/21] rosuvastatin 40 mg tablet (Crestor) 40 mg PO DAILY CHOLESTEROL 08/18/18 [History Last Taken 06/12/21] carvedilol 25 mg tablet 25 mg PO BID blood pressure 04/30/21 [History Last Taken 06/13/21] albuterol sulfate 90 mcg/actuation aerosol inhaler 1 puff inhalation Q6H PRN SOB05/31/21 [History Last Taken 06/12/21] hydralazine 50 mg tablet 50 mg PO BID diuretic 05/31/21 [History Last Taken 06/13/21] lidocaine-prilocaine 2.5 %-2.5 % topical cream 1 applic topical ONCE PRN Port access 30 days #30 grams 01/28/22 [Rx Last Taken Unknown] amlodipine 10 mg tablet 10 mg PO DAILY Check with primary doctor 11/19/22 [History Last Taken Unknown] esomeprazole magnesium 20 mg capsule,delayed release (Nexium) 20 mg PO DAILY #30caps 11/21/22 [Rx Last Taken Unknown] ipratropium 0.5 mg-albuterol 3 mg (2.5 mg base)/3 mL nebulization soln 3 ml inhalation Q4H PRN shortness of breath or wheezing #180 mL 11/24/22 [Rx Last Taken Unknown] ipratropium bromide 0.02 % solution for inhalation 0.5 mg (2.5 mL) inhalation Q4H PRN shortness of breath or wheezing #150 mL 11/24/22 [Rx Last Taken Unknown] dexamethasone 4 mg tablet 4 mg PO BID #60 tabs 03/20/23 [Rx Last Taken Unknown] Allergy/AdvReac Type Severity Reaction Status Date / Time No Known Allergies Allergy Verified 05/02/23 10:44 Family History Sister Diabetes CAD (coronary artery disease) Mother CVA (cerebral vascular accident) CAD (coronary artery disease) Lung cancer Father CAD (coronary artery disease) Brother CAD (coronary artery disease) Surgical History History of coronary angioplasty (01/05/04) History of coronary artery stent placement (07/17/03) History of lobectomy of lung History of nephrectomy, left Social History Smoking Status: Former smoker Tobacco: How many years used: 40 second hand exposure: No alcohol intake: current alcohol intake frequency: a few times a month Alcohol type: beer substance use type: does not use seatbelt use: always do you feel safe at home: Yes ROS ROS ED Constitutional Constitutional ED: Reports chills, fever(s) and weakness Eyes Eyes: Denies change in vision or diplopia ENT ENT ED: Denies ear pain, rhinorrhea or sore throat Cardiovascular Cardiovascular: Denies chest pain or palpitations Respiratory/Chest Respiratory/Chest: Reports cough and dyspnea Gastrointestinal Gastrointestinal: Denies abdominal pain, diarrhea, nausea or vomiting Genitourinary Genitourinary ED: Denies dysuria or hematuria Musculoskeletal Musculoskeletal: Denies back pain or neck pain Integumentary Denies abscess or rash Neurologic Neurologic: Denies headache(s), paresthesias or weakness Psychiatric Psychiatric: Denies anxiety or suicidal thoughts EXAM Physical Exam Const Vital Signs: 05/02/23 10:42 05/02/23 11:08 05/02/23 11:08 Temperature 100.4 F H Temperature Source Temporal Pulse Rate 93 94 Respiratory Rate 14 22 H Respiratory Effort Respiratory Pattern Blood Pressure 125/57 H 118/69 Blood Pressure Mean 79 85 Pulse Ox 90 87 92 Oxygen Delivery Method Room Air Room Air Nasal Cannula Oxygen Flow Rate (L/min) 2 05/02/23 11:13 05/02/23 11:11 05/02/23 13:16 Temperature Temperature Source Pulse Rate 92 80 Respiratory Rate 18 18 Respiratory Effort Short of Breath Respiratory Pattern Tachypnea Normal Blood Pressure 117/68 Blood Pressure Mean 84 Pulse Ox 89 Oxygen Delivery Method Nasal Cannula Oxygen Flow Rate (L/min) 4 05/02/23 14:58 Temperature Temperature Source Pulse Rate 85 Respiratory Rate 22 H Respiratory Effort Respiratory Pattern Blood Pressure 105/91 H Blood Pressure Mean 95 Pulse Ox 92 Oxygen Delivery Method Nasal Cannula Oxygen Flow Rate (L/min) 4 Positive well nourished and well developed Constitutional Narrative: Mild respiratory distress, able to speak in 5-10 for sentences General Appearance ED: well developed HEENT Reports moist mucous membranes normocephalic and atraumatic Eyes PERRL and EOMs intact bilaterally Neck full ROM, no lymphadenopathy, supple and no meningeal signs Resp Resp Narrative: Mild respiratory distress. Expiratory wheezes throughout. Decreased breath sounds left apex compared with the right. Cardio regular rate, regular rhythm and no murmurs Rate: Negative for tachycardic GI non-tender and non-distended Auscultation: normoactive bowel sounds Palpation: soft Back/Spine no CVA tenderness General Back: other FROM Extremity normal to inspection Extremity Narrative: No calf tenderness or palpable cords. General Extremety ED: Negative for edema, pulses abnormal or tenderness General Extremity: Negative for edema or pulses abnormal Neuro oriented x3, CN's II-XII intact bilaterally and no sensory deficits noted Sensorium / Orientation: awake and alert Motor Exam: general weakness Psych mental status grossly normal Skin no rashes or lesions noted and no wounds MDM MDM MDM Narrative Medical decision making narrative: Work-up ordered and patient given a duo nebulizer treatment which really did notseem to help subjectively. Still hypoxemic even with 2 L nasal cannula moved upto 3 to keep him above 90, in mild respiratory distress but able to converse protecting his airway does not require BiPAP or intubation at this time. 1 viewchest x-ray my interpretation shows what appears to be a left lower lobe infiltrate but his white blood count is only 5.5, suggesting either this is possibly chronic, viral, COVID, or something noninfectious. [employer]qu[employer] [place] is considered. He has active cancer, he has a Wells score that is approximately 2.5 and therefore instead of ordering a D- dimer followed with CT angiography of the chest to evaluate this abnormal area in the left lower lobe and in order to evaluate for pulmonary embolus. With regards to the rest of his labs his lactate is within normal limits, his troponin is within normal limits, his EKG shows no acute injury, and my pretest probability for cardiac etiologies is relatively low, and consistent with this his BNP is also normal. I reviewed the CTA images and the report, which I agree with. Appears to show pneumonia as I suspected on the x-ray, it did show what appears to be a nonocclusive single pulmonary embolus that appears chronic, which may be an indication for him to be anticoagulated but less likely to be causing his dyspnea and hypoxemia here. Due to the hypoxemia even though he is not in respiratory distress any longer but still tachypnea, he will need to be admittedfor further treatment. Antibiotic started. History & Record Review Additional record(s) reviewed:: Prior outpatient record (Pulmonary clinic visit and echocardiogram 01/13/2023 with EF 65% and no diastolic dysfunction) Lab Data Attestation: I reviewed the patient's lab results. Labs: Laboratory Results - last 24 hr 05/02/23 05/02/23 05/02/23 11:05 11:05 11:05 WBC 5.5 RBC 4.49 L Hgb 11.4 L Hct 34.9 L MCV 77.7 L MCH 25.4 L MCHC 32.7 RDW Std Deviation 48.4 H RDW Coeff of Kailey 17.2 H Plt Count 105 L MPV 9.6 Neut % (Auto) Not Reportable Absolute Neuts (auto) 4.6 Absolute Lymphs (auto) 0.44 L Total Counted 100 Neutrophils % (Manual) 79 H Band Neutrophils % 4 Lymphocytes % (Manual) 8 L Monocytes % (Manual) 2 Metamyelocytes % 3 H Myelocytes % 4 H Diff Path Review May foll Platelet Estimate ADEQUATE RBC Morphology NORM C+C Sodium 132 L Potassium 3.7 Chloride 104 Carbon Dioxide 19.0 L Anion Gap 9 BUN 18 Creatinine 0.97 Estim Creat Clear Calc 62.52 Est GFR (MDRD) Af Amer 99 Est GFR (MDRD) Non-Af 82 BUN/Creatinine Ratio 18.6 Glucose 169 H Lactic Acid 1.8 Calcium 8.9 Troponin I High Sens 11 B-Natriuretic Peptide 05/02/23 11:05 WBC RBC Hgb Hct MCV MCH MCHC RDW Std Deviation RDW Coeff of Kailey Plt Count MPV Neut % (Auto) Absolute Neuts (auto) Absolute Lymphs (auto) Total Counted Neutrophils % (Manual) Band Neutrophils % Lymphocytes % (Manual) Monocytes % (Manual) Metamyelocytes % Myelocytes % Diff Path Review Platelet Estimate RBC Morphology Sodium Potassium Chloride Carbon Dioxide Anion Gap BUN Creatinine Estim Creat Clear Calc Est GFR (MDRD) Af Amer Est GFR (MDRD) Non-Af BUN/Creatinine Ratio Glucose Lactic Acid Calcium Troponin I High Sens B-Natriuretic Peptide 34.6 Radiography Chest X-Ray - ED: 1 View, Read by ED Physician and Left Infiltrate Diagnostic Testing: Clinical Impression(s) from Imaging Studies Chest X-Ray 05/02/23 10:55 IMPRESSION: 2 cm left retrocardiac opacity, possible focus of infection or large pulmonary nodule. Recommend follow-up to resolution or CT. Mild right basilar atelectasis with unchanged mild right pleural effusion. Electronically Signed: Jesusita Borges MD at 12:32 EDT , Chest CTA 05/02/23 12:01 IMPRESSION: No evidence of acute pulmonary embolism. Small chronic nonocclusive right lower lobar pulmonary embolism. New 3 mm spiculated right lower lobe nodule and left lower lobe pulmonary nodules measuring up to 8 mm, suspicious for metastases. Progression of mild mediastinal and hilar lymphadenopathy. Mild pneumonitis or atypical pneumonia with mosaic attenuation pattern and groundglass opacities with mild septal thickening most confluent in the left upper lobe inferiorly. Chronic scarring in the right lung with pleural thickening. Enhancing right renal mass. Left nephrectomy. Electronically Signed: Jesusita Borges MD at 13:17 EDT , Rhythm Strip Rhythm Strip: Sinus Rhythm Rate: 90 Ectopy: None EKG Initial EKG: Attestation: I personally reviewed and interpreted this EKG as follows: Interpretation: Sinus Rhythm and No Acute Injury Pattern Prior EKG tracings: available for review Prior: Unchanged Discharge Plan Triage Chief Complaint: Shortness of Breath ED Provider: Indio Simon Dx/Rx/DC Orders Clinical Impression: Pneumonia, Hypoxemia Prescriptions: No Action carvedilol 25 mg tablet 25 mg PO BID Rx Instructions: must administer with a meal/food albuterol sulfate 90 mcg/actuation HFA aerosol inhaler 1 puff inhalation Q6H PRN (Reason: SOB) lidocaine-prilocaine 2.5-2.5 % cream 1 applic topical ONCE PRN (Reason: Port access ) 30 Days Qty: 30 2RF ipratropium-albuterol 0.5 mg-3 mg(2.5 mg base)/3 mL solution for nebulization 3 ml inhalation Q4H PRN (Reason: shortness of breath or wheezing) Qty: 180 3RF ipratropium bromide 0.02 % solution 0.5 mg inhalation Q4H PRN (Reason: shortness of breath or wheezing) Qty: 150 6RF aspirin 81 MG tablet 81 mg PO DAILY rosuvastatin [Crestor] 40 MG tablet 40 mg PO DAILY amlodipine 10 mg tablet 10 mg PO DAILY esomeprazole magnesium [Nexium] 20 mg capsule,delayed release(DR/EC) 20 mg PO DAILY Qty: 30 0RF hydralazine 50 mg tablet 50 mg PO BID dexamethasone 4 mg tablet 4 mg PO BID Qty: 60 0RF Rx Instructions: take half tab PO daily Primary Care Provider: Jacob Jennings Referrals: Jacob Jennings DO [Primary Care Provider] - Disposition Disposition: Acute Care Hospital [facility] What to do if you have Problems For any increased pain, shortness of breath, bleeding, nausea or vomiting, chestpain, or any unexpected problems, contact your Primary Care Provider. Call [facility] ([phone]) or report to the closest Emergency Room. Call 911 if necessary. 05/02/232 <Electronically signed by Indio Simon MD> Cosigner Signature (if applicable): CC: Dr. Jacob Jennings DO ~ Signed [facility] Work Phone: [phone] 554-787406-24-2023 History and physical note Author Tara Mae [facility] May 02, 2023 4:39pm Note Date/Time May 02, 2023 3:36 pm [facility] Medical Records Department [address] [place] [address] H&P Exam - Hospitalist 05/02/23 1530 MR#: [id number] Acct: [id number] Name: KENN ARSHAD Rep #:[id number] : 1955 67 From: Tara Mae DO PCP: Dr. Jacob Jennings, Status:AD M IN Location: [facility] [id number] HPI - General General Date of Admission: 05/02/23 Date of Service: 05/02/23 Chief Complaint: SOB HPI Narrative KENN ARSHAD, is a 67 M who presented to the emergency department at [facility] on 05/02/2023 complaining of shortness of breath. Patient reports this has been ongoing for about the last 2 weeks but worsening as of recently. He has had low-grade temperatures at home and complains of feeling chilled. He has had associated cough and dyspnea with exertion. Cough is productive of a clear to white sputum. He has had no sick contacts. 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 Patient is not oxygen dependent at baseline but currently requiring 3 to 4 L supplemental nasal cannula. He is on Keytruda for his metastatic renal cell carcinoma. Vital signs on presentation demonstrate a temperature of 100.4, heart rate 93, blood pressure 123/57, respiratory rate has been anywhere from 14-22 and oxygen saturations were 87% on room air at rest. His CBC shows normal white count witha microcytic anemia showing hemoglobin of 11.4 which is stable for him and a thrombocytopenia with a platelet count of 105 which is his baseline. He does have a left shift with a 79% neutrophilia and 4% bands. His chemistry panel shows chronic stable hyponatremia normal renal function and hyperglycemia with aglucose of 169. A lactic acid was obtained and was normal. BNP was normal at 34.6 and his troponin was 11. EKG shows normal sinus rhythm with normal intervals and no changes concerning for acute ischemia. Chest x-ray showed a 2 cm left retrocardiac opacity and a unchanged mild right pleural effusion. CTA of his chest demonstrated no acute PE but did demonstrate a small chronic nonocclusive right lower lobe PE, a new 3 mm spiculated right lower lobe nodule as well as a left lower lobe pulmonary nodules measuring 8 mm that were suspicious for metastasis, Progression of mediastinal and hilar lymphadenopathy,mild pneumonitis, bronchiectasis and chronic scarring in the right lung with pleural thickening. Stable appearing enhancing right renal mass is also noted with previous left nephrectomy. The patient was placed on supplemental oxygen emergency department and was requiring 3 to 4 L to maintain saturations above 88%. He was given IV Levaquin and request for admission was made. 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 Contact with or suspected exposure to other viral communicable disease COPD (chronic obstructive pulmonary disease) COVID-19 DDD (degenerative disc disease) Dyspnea Easy bruising Elevated troponin (05/15/21) Encephalopathy (05/15/21) Encounter for immunotherapy Encounter for immunotherapy Epistaxis Essential (primary) hypertension Former smoker Frequent headaches Gastric reflux History of primary malignant neoplasm of left kidney Hx of radiation therapy Hyperlipidemia Hyponatremia Imbalance Iron deficiency anemia due to chronic blood loss 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 Nonrheumatic aortic (valve) stenosis with insufficiency Pneumonia Port-A-Cath in place Seizure (05/15/21) Sinus congestion Skin cancer Thrombocytopenia Wears dentures Wears glasses Home Medications aspirin 81 mg tablet,delayed release 81 mg PO DAILY [facility] 08/18/18 [History Last Taken 06/13/21] rosuvastatin 40 mg tablet (Crestor) 40 mg PO DAILY CHOLESTEROL 08/18/18 [History Last Taken 06/12/21] carvedilol 25 mg tablet 25 mg PO BID blood pressure 04/30/21 [History Last Taken 06/13/21] albuterol sulfate 90 mcg/actuation aerosol inhaler 1 puff inhalation Q6H PRN SOB05/31/21 [History Last Taken 06/12/21] hydralazine 50 mg tablet 50 mg PO BID diuretic 05/31/21 [History Last Taken 06/13/21] lidocaine-prilocaine 2.5 %-2.5 % topical cream 1 applic topical ONCE PRN Port access 30 days #30 grams 01/28/22 [Rx Last Taken Unknown] amlodipine 10 mg tablet 10 mg PO DAILY Check with primary doctor 11/19/22 [History Last Taken Unknown] esomeprazole magnesium 20 mg capsule,delayed release (Nexium) 20 mg PO DAILY #30caps 11/21/22 [Rx Last Taken Unknown] ipratropium 0.5 mg-albuterol 3 mg (2.5 mg base)/3 mL nebulization soln 3 ml inhalation Q4H PRN shortness of breath or wheezing #180 mL 11/24/22 [Rx Last Taken Unknown] ipratropium bromide 0.02 % solution for inhalation 0.5 mg (2.5 mL) inhalation Q4H PRN shortness of breath or wheezing #150 mL 11/24/22 [Rx Last Taken Unknown] dexamethasone 4 mg tablet 4 mg PO BID #60 tabs 03/20/23 [Rx Last Taken Unknown] Allergy/AdvReac Type Severity Reaction Status Date / Time No Known Allergies Allergy Verified 05/02/23 10:44 Family History Sister Diabetes CAD (coronary artery disease) Mother CVA (cerebral vascular accident) CAD (coronary artery disease) Lung cancer Father CAD (coronary artery disease) Brother CAD (coronary artery disease) Surgical History History of coronary angioplasty (01/05/04) History of coronary artery stent placement (07/17/03) History of lobectomy of lung History of nephrectomy, left Social History Smoking Status: Former smoker Tobacco: How many years used: 40 second hand exposure: No alcohol intake: current alcohol intake frequency: a few times a month Alcohol type: beer substance use type: does not use seatbelt use: always do you feel safe at home: Yes ROS Constitutional Constitutional: Reports chills and fever(s); Denies anorexia, change in weight, fatigue, malaise, night sweats, weakness or other Eyes Eyes: Denies blurry vision, change in eye color, change in vision, discharge from eye(s), double vision, erythema, eye pain, loss of vision or other ENT HEENT: Denies abnormal hearing, dysphagia, ear pain, epistaxis, headache(s), hearing loss, nasal congestion, nasal discharge, post nasal drip, sinus pressure, sore throat or other Cardiovascular Cardiovascular: Reports dyspnea on exertion; Denies chest pain, claudication, edema, lightheadedness, orthopnea, palpitations, paroxysmal nocturnal dyspnea, rapid heart rate, syncope or other Respiratory/Chest Respiratory/Chest: Reports cough, dyspnea, productive cough and shortness of breath with exertion; Denies excessive phlegm production, hemoptysis, shortness of breath at rest, wheezing or other Gastrointestinal Gastrointestinal: Denies abdominal pain, coffee ground emesis, constipation, diarrhea, dyspepsia, hematemesis, hematochezia, loose stools, melena, nausea, vomiting or other Genitourinary Genitourinary: Denies burning urination, difficulty urinating, dysuria, hematuria, nocturia, urinary frequency, urinary hesitancy, urinary incontinence,urinary urgency or other Musculoskeletal Musculoskeletal: Denies arthralgias, back pain, joint pain, joint stiffness, joint swelling, myalgias, neck pain or other Neurologic Neurologic: Denies abnormal gait, abnormal speech, confusion, disequilibrium, dizziness, focal weakness, headache(s), numbness, paresthesias, seizure-like activity, seizures, syncope, tingling, tremor(s) or other Psychiatric Psychiatric: Denies anxiety, depression, homicidal ideation, suicidal ideation or other Endocrine Endocrinology: Denies change in body appearance, cold intolerance, excessive sweating, heat intolerance, polydipsia, polyuria or other Hematologic/Lymphatic Hematologic/Lymphatic: Reports easy bruising; Denies anemia, easy bleeding, lymphadenopathy or other Allergic/Immunologic Allergic/Immunologic: Denies rhinitis, hives, eczemia, asthma or other Vital Signs Vital Signs Vital Signs: 05/02/23 10:42 05/02/23 11:08 05/02/23 11:08 Temperature 100.4 F H Temperature Source Temporal Pulse Rate 93 94 Respiratory Rate 14 22 H Respiratory Effort Respiratory Pattern Blood Pressure 125/57 H 118/69 Blood Pressure Mean 79 85 Pulse Ox 90 87 92 Oxygen Delivery Method Room Air Room Air Nasal Cannula Oxygen Flow Rate (L/min) 2 05/02/23 11:13 05/02/23 11:11 05/02/23 13:16 Temperature Temperature Source Pulse Rate 92 80 Respiratory Rate 18 18 Respiratory Effort Short of Breath Respiratory Pattern Tachypnea Normal Blood Pressure 117/68 Blood Pressure Mean 84 Pulse Ox 89 Oxygen Delivery Method Nasal Cannula Oxygen Flow Rate (L/min) 4 05/02/23 14:58 Temperature Temperature Source Pulse Rate 85 Respiratory Rate 22 H Respiratory Effort Respiratory Pattern Blood Pressure 105/91 H Blood Pressure Mean 95 Pulse Ox 92 Oxygen Delivery Method Nasal Cannula Oxygen Flow Rate (L/min) 4 Weight Weight: 83.915 kg Body Mass Index (BMI) 30.7 Physical Exam Const alert, oriented x3, no apparent distress and well nourished Constitutional Narrative: Obese, upper middle-aged white male, sitting up in bed, appears older than stated age, at bedside, appears comfortable and nontoxic General Appearance: cooperative HEENT normocephalic, head/scalp atraumatic, hearing grossly normal bilaterally and moist oral mucous membranes HEENT Narrative: Dentures in place, Mallampati 2-3, no thrush Eyes PERRL, EOMs intact bilaterally and conjunctivae normal Eyes Narrative: No scleral icterus Neck no lymphadenopathy, supple, no JVD and no carotid bruits Neck Narrative: Trachea midline no thyroid enlargement Resp normal respiratory effort, no retractions, no use of accessory muscles and clearto auscultation bilaterally Resp Narrative: Diffusely diminished but clear, absent breath sounds right base and midlung region Auscultation: Negative for rales, rhonchi or wheezes Cardio regular rate, regular rhythm, S1 normal heart sound, S2 normal heart sound, no murmurs, no rub, no gallops and no clicks GI normal to inspection, nondistended, normoactive bowel sounds, soft to palpation and non-tender Extremity no clubbing, cyanosis or edema Extremity Narrative: Pedal pulses are plus Skin No no rashes or lesions noted, no wounds, skin turgor normal, no jaundice, no petechiae and no mottling Skin Narrative: Right port [id number], no drainage or erythema, scattered ecchymosis on arms Neuro oriented x3, CN's II-XII intact bilaterally, moves all extremities and no focal motor deficits Speech: speech normal Motor Exam: strength 5/5 throughout Psych affect normal Psych Narrative: Very pleasant, appropriately interactive Results Lab / Micro Data Attestation: I reviewed the patient's lab results. Result Diagrams: 05/02/23 11:05 05/02/23 11:05 Labs: Laboratory Results - last 24 hr 05/02/23 11:05: WBC 5.5, RBC 4.49 L, Hgb 11.4 L, Hct 34.9 L, MCV 77.7 L, MCH 25.4 L, MCHC 32.7, RDW Std Deviation 48.4 H, RDW Coeff of Kailey 17.2 H, Plt Count 105 L, MPV 9.6, Neut % (Auto) Not Reportable, Absolute Neuts (auto) 4.6, Absolute Lymphs (auto) 0.44 L, Total Counted 100, Neutrophils % (Manual) 79 H, Band Neutrophils % 4, Lymphocytes % (Manual) 8 L, Monocytes % (Manual) 2, Metamyelocytes % 3 H, Myelocytes % 4 H, Diff Path Review March, Platelet Estimate ADEQUATE, RBC Morphology NORM C+C 05/02/23 11:05: Sodium 132 L, Potassium 3.7, Chloride 104, Carbon Dioxide 19.0 L, Anion Gap 9, BUN 18, Creatinine 0.97, Estim Creat Clear Calc 62.52, Est GFR (MDRD) Af Amer 99, Est GFR (MDRD) Non-Af 82, BUN/Creatinine Ratio 18.6, Glucose 169 H, Calcium 8.9, Troponin I High Sens 11 05/02/23 11:05: Lactic Acid 1.8 05/02/23 11:05: B-Natriuretic Peptide 34.6 Micro: Microbiology 05/02/23 12:16 Nasal Secretion SARS-CoV-2 Antigen (Rapid) - Final Rhythm Strip Rhythm Strip: Sinus Rhythm Rate: 90 Ectopy: None Radiology Impression Chest X-Ray 05/02/23 10:55 IMPRESSION: 2 cm left retrocardiac opacity, possible focus of infection or large pulmonary nodule. Recommend follow-up to resolution or CT. Mild right basilar atelectasis with unchanged mild right pleural effusion. Electronically Signed: Jesusita Borges MD at 12:32 EDT , Chest CTA 05/02/23 12:01 IMPRESSION: No evidence of acute pulmonary embolism. Small chronic nonocclusive right lower lobar pulmonary embolism. New 3 mm spiculated right lower lobe nodule and left lower lobe pulmonary nodules measuring up to 8 mm, suspicious for metastases. Progression of mild mediastinal and hilar lymphadenopathy. Mild pneumonitis or atypical pneumonia with mosaic attenuation pattern and groundglass opacities with mild septal thickening most confluent in the left upper lobe inferiorly. Chronic scarring in the right lung with pleural thickening. Enhancing right renal mass. Left nephrectomy. Electronically Signed: Jesusita Borges MD at 13:17 EDT , Assessment & Plan Assessment/Plan (1) Hypoxemia: (2) SOB (shortness of breath): (3) Pulmonary emboli: (4) Hyperglycemia: PLAN: Plan Shortness of breath/hypoxia -Patient does not meet criteria for acute hypoxic respiratory failure -Etiology is unclear at this point--> infectious/Keytruda induced pneumonitis/COPD exacerbation however this seems less likely due to his baselinelung function -CT of the chest demonstrated small chronic nonocclusive right lower lobe pulmonary embolus, new 3 mm spiculated right lower lobe nodule and left lower lobe pulmonary nodules measuring 8 mm suspicious for metastasis, progression of mild mediastinal and hilar lymphadenopathy, mild pneumonitis, bronchiectasis -BNP is within normal limits -Currently requiring 4 L of supplemental oxygen -Does not require oxygen at baseline -Continue to wean as able -Low-grade fever present at 100.4 so will rule out infectious etiology -Check sputum culture if able -Respiratory viral panel -We will start Levaquin 750 mg p.o. daily -EKG shows normal QTc -IV steroids 40 every 8 and hold home Decadron -Transition back to Decadron at discharge -Aggressive pulmonary toilet -I-S/Acapella -Patient had echocardiogram done on January 13, 2023 that showed an EF of 65% and no evidence of diastolic dysfunction -Pulmonary medicine consult-discussed with Dr. Patel Right lower lobe nonocclusive PE -Start anticoagulation with Eliquis 10 mg p.o. twice daily for 7 days followed by 5 mg p.o. twice daily -Patient with microcytic anemia that is mild and stable -We will check guaiac and iron studies -Not likely etiology for acute shortness of breath and hypoxia -No signs of cardiac strain Hyperglycemia -Likely Decadron induced -Check hemoglobin A1c -Accu-Cheks -Sliding scale insulin -Patient is not diabetic at baseline Poorly differentiated adenocarcinoma of the lung/metastatic left renal cell carcinoma -Left radical nephrectomy 2005 -January 28, 2021--> Greening CT of chest showed spiculated partially cavitary mass in the right lower lobe--> CT-guided biopsy demonstrated moderately to poorly differentiated adenocarcinoma of the lung primary--> March 2021 VATS converted to right muscle-sparing thoracotomy with right lower lobectomy, right upper lobe wedge resection and right middle lobe wedge resection with mediastinal lymph node dissection (positive lymph nodes noted at this time)--> MRI October 2022 showed 1.6 cm enhancing mass in the left posterior parietal lobe concerning for hemorrhagic metastasis and large surrounding edema--> follow-up MRI December 16, 2022 shows increasing size of metastatic mass in the left posterior parietal lobe--> CT of chest abdomen pelvis December 29, 2022 showed persistent solid mass in the lower pole of the right kidney with slight increase in size since August, chronic interstitial changes in both lungs--> follow-up MRI January 2023 shows persistent hemorrhagic metastasis--> follow-up chest abdomen pelvis CT March 13, 2023 shows an enlarged right posterior mediastinal lymph node and stable 4.2 cm right renal mass--> MRI brain March 2023 shows doubling in size of mass in the posterior medial aspect of the left parietal lobe with surrounding vasogenic edema that had slightly increased and no further metastatic lesions--> MRI spectroscopy April 16, 2023 showed spectroscopy and perfusion findings medial and dorsal aspects of the treated presumed left parietal metastasis compatible with viable tumor with more extensive surrounding radiation necrosis - May 07, 2021 pembrolizumab plus axitinib for metastatic RCC/Axitinib discontinued May 2021 due to hypertensive crisis -Keytruda single agent May 07 ?July 30,2020 (5 cycles)? [place] but held in August 2021 due to ELANA.? Resumed November 26, 2021 -Stereotactic brain radiation at [place] October 28, 2022 a single fraction with 10 MV photons. -CT of chest at this time shows new findings in the lung -Consult pulmonary medicine -With regards to brain metastasis patient has a ointment with neurosurgery on Thursday in [place] -Will likely need to be canceled and rescheduled -Holding Decadron while on IV Solu-Medrol -Most recent oncology notes reviewed CAD/hypertension/hyperlipidemia -ITA-OMU-MNSI w/ 2.25 x 18 mm Biodivysio Stent x 2, BMS-OM1 w/ 2.25 x 18 mm Biodivysio Stent and 2.25 x 18 mm Pixel Stent and MARVIN-Prox LCx w/ 3.5 x 18 mm Cypher Stent 07/17/2003 -Continue home aspirin -Continue home amlodipine -continue home carvedilol -Continue home rosuvastatin -Continue home hydralazine Microcytic anemia -Hemoglobin is stable with no signs of acute bleeding -Has had iron deficiency in the past and received IV iron -We will check iron studies and stool guaiac with initiation of anticoagulation for pulmonary embolism Thrombocytopenia -Appears to be chronic -Likely related to ongoing chemotherapy and cancer treatment -Counts are stable and greater than 100,000 Aortic valve stenosis -Mild -No acute issues -Most recent echocardiogram shows stability COPD -PFTs show only mild large airway obstructive ventilatory defect -O2 dependent at baseline -No exertional hypoxemia noted on 6-minute walk test earlier this year -Continued outpatient follow-up with pulmonary medicine after discharge DVT prophylaxis -Fully anticoagulated with Eliquis CODE STATUS -Full code verified on admission Charges/Coding Visit Charges Inpatient E&M: 40454 Init Hosp L3 05/02/23 1639 <Electronically signed by Tara Mae DO> Cosigner Signature (if applicable): CC: Dr. Jacob Jennings DO; Dr. Tara Mae DO; Dr. Angela Rodriguez MD~ Signed [facility] Work Phone: [phone]) 477-508105-22-2023 Chief complaint+Reason for visit Narrative * Chief Complaint 3 WKS - LABS - KEYTR UDA LT PARIETAL METS, EVAL FOR PROGRESSION LT PARIETAL METS, EVAL FOR PROGRESSION 3 WKS - LABS - KEYTRUDA(MUST HAVE EYE DR NOTE) SEIZURE Review MRI 03/30 2 M FU 3 WKS - LABS - KEYTRUDA 1 month f/u 3 WKS - LABS - KEYTRUDA HYPOXIA/SOB HYPOXIA/SOB HYPOXIA/SOB HYPOXIA/SOB HYPOXIA/SOB HYPOXIA/SOB HYPOXIA/SOB HYPOXIA/SOB HYPOXIA/SOB HYPOXIA/SOB HYPOXIA/SOB HYPOXIA/SOB 3 WKS - LABS - [facility] FU 1 WK - LABS - KEYTRUDA 3 WKS - LABS - KEYTRUDA F/U METS KIDNEY LABS Reason for Visit Brain metastasis 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 Cancer of right kidney History of primary malignant neoplasm of left kidney Iron deficiency anemia due to chronic blood loss 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 Cancer of right kidney Drug rash History of primary malignant neoplasm of left kidney Iron deficiency anemia due to chronic blood loss 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 SOB (shortness of breath) Brain metastasis 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 Cancer of right kidney Drug rash Iron deficiency anemia due to chronic blood loss 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 Cancer of right kidney Drug rash History of primary malignant neoplasm of left kidney Iron deficiency anemia due to chronic blood loss 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 Anemia 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 GI bleed Hypoxemia Pneumonitis SOB (shortness of breath) Brain metastasis 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 Cancer of right kidney Drug rash History of primary malignant neoplasm of left kidney Iron deficiency anemia due to chronic blood loss 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 Brain metastasis 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 Cancer of right kidney Drug rash History of primary malignant neoplasm of left kidney Iron deficiency anemia due to chronic blood loss 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 Cancer of right kidney Drug rash History of primary malignant neoplasm of left kidney Iron deficiency anemia due to chronic blood loss 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 * Telephone Encounter - Monalisa Sanford MA - 12/31/2022 9:05 AM EST ----- Message from Jacob Jennings DO sent at 12/31/2022 8:28 AM EST ----- Send lipid orders to appropriate lab work in [place] where he acquires his draws from his port * Telephone Encounter - Janelle Montgomery - 12/31/2022 8:31 AM EST Orders pended for doctor signature documented [facility] [id number] Telephone encounter Note* Telephone Encounter - Celsa Yoder - 01/01/2023 3:54 PM EST Referral and orders pended for doctor's signature [id number] Miscellaneous Notes* Telephone Encounter - Celsa Yoder - 01/01/2023 3:54 PM EST Referral and orders pended for doctor's signature * Telephone Encounter - Celsa Yoder - 01/01/2023 3:33 PM EST ----- Message from Jacob Jennings DO sent at 12/31/2022 8:22 AM EST ----- Patient needs set up for carotid Dopplers. It is a joke that I cannot complete this x-ray order. Also needs referral to [facility] at either office for probable basal cell carcinoma of the rightcheek. Call patient to remind him as well documented in this encounterSK[facility] [id number] Telephone encounter Note* Telephone Encounter - Celsa Yoder - 01/01/2023 3:33 PM EST ----- Message from Jacob Jennings DO sent at 12/31/2022 8:22 AM EST ----- Patient needs set up for carotid Dopplers. It is a joke that I cannot complete this x-ray order. Also needs referral to [facility] at either office for probable basal cell carcinoma of the rightcheek. Call patient to remind him as well [id number] Telephone encounter Note* Telephone Encounter - Monalisa Sanford MA - 12/31/2022 9:05 AM EST Faxed patient lab to [facility]. [id number] Telephone encounter Note* Telephone Encounter - Monalisa Sanford MA - 12/31/2022 9:05 AM EST ----- Message from Jacob Jennings DO sent at 12/31/2022 8:28 AM EST ----- Send lipid orders to appropriate lab work in [place] where he acquires his draws from his port [place] [id number] Telephone encounter Note* Telephone Encounter - Janelle Montgomery - 12/31/2022 8:31 AM EST Orders pended for doctor signature [id number] History of Present illness Narrative* Jacob Jennings, DO - 12/31/2022 7:20 AM EST Images from the original note were not included. [facility] [address] [facility] [facility] [id number] Visit type: Established Patient Reason for Visit: Follow-up (6 month) Assessment / Plan: Kenn was seen today for follow-up. Diagnoses and all orders for this visit: Essential hypertension (Primary) Comments: Stable, continue amlodipine, carvedilol and hydralazine Chronic obstructive pulmonary disease with acute exacerbation (HCC) Comments: Uncontrolled, follow-up with pulmonary on probable additional aerosol treatment. Continue albuterolas needed Orders: - General supply request: copd Aortic stenosis, mild Bruit of right carotid artery Comments: Recurrent, check Dopplers. Skin lesion of face Comments: New onset, [facility] referral Hypercholesterolemia Comments: Stable, check Crestor Orders: - Lipid panel; Future - Lipid panel Adenosquamous carcinoma of lung, left (HCC) Comments: Noted, discussed abnormal MRI of the head and follow-up with oncology as directed in a few weeks. Coronary artery disease involving [place] coronary artery of [place] heart without angina pectoris Other orders - rosuvastatin (Crestor) 40 MG tablet; Take 1 tablet (40 mg) by mouth daily for 90 doses. - amLODIPine (Norvasc) 10 MG tablet; Take 1 tablet (10 mg) by mouth daily for 90 doses. - carvedilol (Coreg) 25 MG tablet; Take 1 tablet (25 mg) by mouth 2 times daily for 180 doses. - hydrALAZINE (Apresoline) 50 MG tablet; Take 1 tablet (50 mg) by mouth 2 times daily. Subjective: Patient ID: Kenn Arshad is a 67 y.o. male. 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 Having less cough. Presently on Decadron 4 mg twice daily for cranial metastasis. That has helped his lungs. Takes DuoNeb inhalers as needed. Apparently had pulmonary functions a few days ago and is seeing Dr. Malcolm in a few days to discuss prescription options. No recurrent purulent phlegm fever or chest pain. Less wheezing. Review of Systems gets a little jittery on Decadron. Denies change in headache. Resolved epistaxis after cauterization. No change in vision or balance. Denies palpitations PND orthopnea and states his oxygen is excellent with walking. No use of nitro. No heartburn or dysphagia. No abdominal pain. Bowels are pretty regular. No dysuria hematuria. No Known Allergies Current Outpatient Medications on File Prior to Visit Medication Sig Dispense Refill aspirin 81 MG EC tablet Take 81 mg by mouth daily. dexAMETHasone (Decadron) 4 MG tablet Take 4 mg by mouth 2 times daily. omeprazole (PriLOSEC) [address] capsule Take 20 mg by mouth. pembrolizumab (Keytruda) 100 MG/4ML chemo injection Infuse 200 mg into a venous catheter. [DISCONTINUED] amLODIPine (Norvasc) 10 MG tablet Take 10 mg by mouth daily. [DISCONTINUED] carvedilol (Coreg) 25 MG tablet Take 25 mg by mouth 2 times daily. [DISCONTINUED] hydrALAZINE (Apresoline) 50 MG tablet Take 50 mg by mouth. [DISCONTINUED] rosuvastatin (Crestor) 40 MG tablet Take 1 tablet by mouth daily. albuterol (ProAir HFA) 108 (90 Base) MCG/ACT inhaler Inhale 2 puffs every 4 hours as needed for wheezing or shortness of breath. (Patient not taking: Reported on 12/31/2022) 8.5 g 0 nitroglycerin (Nitrostat) 0.[address] 0.4 mg under the tongue. Probiotic Product (Align) capsule Take 1 capsule by mouth daily. triamcinolone (Kenalog) 0.1 % cream No current facility-administered medications on file prior to visit. 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) Gastric polyps CAD (coronary artery disease) History of renal carcinoma Hypercholesterolemia History of colon polyps DDD (degenerative disc disease), cervical COPD (chronic obstructive pulmonary disease) (HCC) History of SCC (squamous cell carcinoma) of skin Family history of diabetes mellitus Smoker Aortic stenosis, mild PRES (posterior reversible encephalopathy syndrome) Disorder of adrenal gland, unspecified (HCC) NSAID long-term use Social History Tobacco Use Smoking status: Former Packs/day: 1.50 Types: Cigarettes Start date: 02/01/1981 Quit date: 03/12/2021 Years since quittin.8 Smokeless tobacco: Never Substance Use Topics Alcohol use: Yes Alcohol/week: 14.0 standard drinks Past Surgical History: Procedure Laterality Date COLONOSCOPY [...] Amairani Coronary artery disease Father age 50 [place] - smoker Coronary artery disease Brother Kaiden age 47 [place] Objective: BP 128/61 (BP Location: Left arm, Patient Position: Sitting, BP Cuff Size: Large adult) Pulse 89 Temp 37 C (98.6 F) (Temporal) Ht 5' 5 (1.651 m) Wt 190 lb 9.6 oz (86.5 kg) SpO2 97% BMI 31.72 kg/m Physical Exam alert and cooperative. Well-hydrated. Normal eardrums and oropharynx. Does have probable basal cell carcinoma to lesions about half a centimeter each on the right cheek just inferior tothe right eye. Has a lot of right carotid bruit. Less on the left side. No neck masses JVD adenopathy or thyroid lesions. Heart is regular with mild murmur. No gallops or ectopy. Lungs are diminished in both bases without wheezing and rhonchi today. Abdomen soft nontender without masses pain or ascites. Femoral pulses are fair. Extremities have no edema. Posterior pulses are adequate documented in this [facility]02-22-2023 Instructions* Patient Instructions* Jacob Jennings DO - 12/31/2022 7:20 AM EST Make appt for face lesion with [facility] please documented in this [facility]02-21-2023 Procedure [facility]02-16-2023 Procedure [facility]01-09-2023 History of Present illness Narrative* Gaby Martinez APRN - ARASH - 11/17/2022 11:40 AM EST Images from the original note were not included. [address] [address] Dept: [phone] Dept Loc: [phone] Visit type: Established Patient Reason for Visit: Cough (s) and Shortness of Breath (X 1 week ) Assessment and Plan 1. Chronic obstructive pulmonary disease with acute exacerbation (HCC) Comments: Chronic, acute exacerbation Take antibiotic as ordered Take steroid as ordered Cont Mucinex Albuterol refilled Cont monitor pulse ox at home Orders: - albuterol (ProAir HFA) 108 (90 Base) MCG/ACT inhaler; Inhale 2 puffs every 4 hours as needed for wheezing or shortness of breath., Starting 11/17/2022, Normal - levoFLOXacin (Levaquin) 500 MG tablet; Take 1 tablet (500 mg) by mouth daily for 7 days., Starting 11/17/2022, Until 11/24/2022, Normal - predniSONE (Deltasone) 20 MG tablet; Take 2 tablets (40 mg) by mouth daily for 5 days., Starting 11/17/2022, Until 11/22/2022, Normal Follow up if symptoms worsen or fail to improve. Reviewed use, side effects, and benefits of prescribed medication. Barriers to compliance addressed. All questions answered. Verbalized understanding Educated on ER and follow up criteria Patient to provide update on symptoms in 48 hours Subjective HPI Kenn is a 67-year-old male. Presents for complaints of cough and shortness of breath. Patient states symptoms started a week ago. Definitely feels like they are worsening. Patient has productive cough, with brown mucus. Patient having increased shortness of breath, mostly with exertion. Has been checking his oxygen level at home which is staying in the 90s, if it does dip down he isable to get back up with a few deep breaths. Patient is taking regular Mucinex. Has a history of COPD. No known exposure to ill person. No recent travel. Review of Systems Constitutional: Negative for fever. HENT: Positive for congestion. Negative for sore throat. Respiratory: Positive for wheezing. Dyspnea on exertion Productive cough Cardiovascular: Negative for chest pain. Gastrointestinal: Negative for abdominal pain, diarrhea, nausea and vomiting. All other systems reviewed and are negative. No Known Allergies Outpatient Medications Prior to Visit Medication Sig Dispense Refill amLODIPine (Norvasc) 10 MG tablet Take 10 mg by mouth daily. aspirin 81 MG EC tablet Take 81 mg by mouth daily. carvedilol (Coreg) 25 MG tablet Take 25 mg by mouth 2 times daily. hydrALAZINE (Apresoline) 50 MG tablet Take 50 mg by mouth. nitroglycerin (Nitrostat) 0.[address] 0.4 mg under the tongue. Probiotic Product (Align) capsule Take 1 capsule by mouth daily. rosuvastatin (Crestor) 40 MG tablet Take 1 tablet by mouth daily. triamcinolone (Kenalog) 0.1 % cream No facility-administered medications prior to visit. Past Medical History: Diagnosis Date Adenocarcinoma of right lung (HCC) 02/2021 Aortic stenosis, mild 06/2002 CAD (coronary artery disease) [address] Mcguire, neg stress test 08/26 at [place] COPD (chronic obstructive pulmonary disease) (HCC) per cxr (smoker) COVID-19 virus infection 10/2021 DDD (degenerative disc disease), cervical NSAID therapy Essential hypertension 1993 Ex-smoker for less than 1 year 03/2021 Family history of diabetes mellitus sister Gastric polyps 12/[address] Ramírez, [facility] also H/O colonoscopy 02/2019 [facility]- small polyp- due 2023 History of colon polyps 2000 [facility] History of renal carcinoma 07/[address] Tariq History of SCC (squamous cell carcinoma) of skin 2011 scalp - [facility] Hypercholesterolemia LDL PAD (peripheral artery disease) (HCC) 07/2019 Rt worse than Lt, pt defering angiogram rec per Dr. 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 Cuevas, [facility], [place] oncologist Social History Tobacco Use Smoking status: Former Packs/day: 1.50 Types: Cigarettes Start date: 02/01/1981 Quit date: 03/12/2021 Years since quittin.6 Smokeless tobacco: Never Substance Use Topics Alcohol use: Yes Alcohol/week: 14.0 standard drinks Past Surgical History: Procedure Laterality Date COLONOSCOPY [...] Amairani Coronary artery disease Father age 50 [place] - smoker Coronary artery disease Brother Kaiden age 47 [place] Objective BP 138/78 (BP Location: Left arm, Patient Position: Sitting, BP Cuff Size: Large adult) Pulse 92 Temp 37.7 C (99.9 F) (Temporal) Ht 5' 5 (1.651 m) Wt 197 lb (89.4 kg) SpO2 91% BMI 32.78 kg/m Physical Exam Vitals reviewed. Constitutional: General: He is not in acute distress. Appearance: Normal appearance. Cardiovascular: Rate and Rhythm: Normal rate and regular rhythm. Pulses: Normal pulses. Pulmonary: Effort: Pulmonary effort is normal. Tachypnea present. No accessory muscle usage or respiratory distress. Breath sounds: Decreased air movement present. Wheezing present. No rales. Abdominal: General: Bowel sounds are normal. Tenderness: There is no abdominal tenderness. Skin: General: Skin is warm and dry. Neurological: General: No focal deficit present. Mental Status: He is alert. Psychiatric: Mood and Affect: Mood normal. Behavior: Behavior normal. Data Reviewed and Summarized Labs: Imaging/Testing: LEXI Sanchez NP documented in this [facility]01-09-2023 Instructions* Patient Instructions* LEXI Sanchez NP - 11/17/2022 11:40 AM EST Mucinex documented in this [facility]01-09-2023 Telephone encounter Note* Telephone Encounter - Merlene Andino RN - 11/17/2022 10:13 AM EST S: Patient spoke with [facility] nurse regarding coughing, SOB when he moves around B: Onset of symptoms/concern a week A: Pt endorses brown productive cough, shortness at breath at all times increases with activities, clear/bloody nasal drainage, chest congestion, wheezing at times. OTC medication uses - Mucinex - without relief. Denies - fever, headache R: Scheduled same day 11/17/22 at 11:40 AM. Patient understands care advice. No further needs at thistime. Patient instructed to call back with new or worsening symptoms. Reason for Disposition MILD difficulty breathing (e.g., minimal/no SOB at rest, SOB with walking, pulse <100) and stillpresent when not coughing Protocols used: [id number] Miscellaneous Notes* Telephone Encounter - Merlene Andino RN - 11/17/2022 10:13 AM EST S: Patient spoke with [facility] nurse regarding coughing, SOB when he moves around B: Onset of symptoms/concern a week A: Pt endorses brown productive cough, shortness at breath at all times increases with activities, clear/bloody nasal drainage, chest congestion, wheezing at times. OTC medication uses - Mucinex - without relief. Denies - fever, headache R: Scheduled same day 11/17/22 at 11:40 AM. Patient understands care advice. No further needs at thistime. Patient instructed to call back with new or worsening symptoms. Reason for Disposition MILD difficulty breathing (e.g., minimal/no SOB at rest, SOB with walking, pulse <100) and stillpresent when not coughing Protocols used: [id number] documented in [facility]01-03-2023 Note Radiation Oncology Completion of Therapy Note Date: 11/11/2022 Kenn Arshad U#:[id number] : 1955 Referring Physician: PERCY TAO Diagnosis: Solitary brain metastasis from either [...] Elapsed Days IMRT Brain SRS 10X 2,400 0 2,400 10/28/2022 10/28/2022 0 Tolerance: [No acute toxicity] Response: [To be assessed to follow-up] Remarks: [Follow-up 1 month] Thank you for the opportunity to care for your patient. Digitally signed by: Kinsey King MD 11/11/2022 7:00:28 AM cc: PERCY TAO DO Course: C1 Brain Treatment Site: IMRT Ref. ID: Brain SRS Energy: 10X Dose/Fx (cGy): 2,400 #Fx: Dose Correction (cGy): 0 Total Dose (cGy): 2,400 Start Date: 10/28/2022 End Date: 10/28/2022 Elapsed Days: 0 [id number] RADIATION ONCOLOGY PROCEDURE NOTE NAME: Kenn Arshad U#: [id number] : 1955 DATE: 10/28/2022 DIAGNOSIS: C79.31 - Secondary malignant neoplasm of brain SUMMARY: RADIATION ONCOLOGIST: Kinsey King PROCEDURE: SRT/SBRT DESCRIPTION OF PROCEDURE: The patient arrived for the 1 fraction of the planned 1 fraction SRT/SBRTtreatment course to the Brain. The patient was placed in the treatment position. Cone beam CT scanning/KV imaging were acquired for target localization. Adjustments were made to ensure the isocenter agreed with the computerized stereotactic plan. The treatment was initiated using 4 RapidArcs/IMRT post with a sliding window technique to the appropriate tumor volume per the physician s prescription. The physician and adjunct faculty for medical terminology were present throughout the set-up, verification, and treatmentdelivery to oversee the procedure and ensure that all parameters agreed with the computerized plan for the first fraction. The imaging was approved prior to treatment. The patient was seen immediately following the first fraction and tolerated the treatment well. The total dose delivered was 2,400cGy of a planned 2,400cGy. Digitally signed by Kinsey King MD 10/28/2022 1:38:46 PM [id number] Hospital Discharge instructions* Discharge Instr - Activity* Julissa Krishna RN - 05/17/2021 5:48 PM EDT Continue daily activity as tolerated. * Discharge Instr - Diet* Julissa Krishna RN - 05/17/2021 5:48 PM [...] at most local grocery stores, pharmacies, and [employer]tri[employer]. If you have any questions about your diet or nutrition, call the hospital and ask for the dietitian. * Additional Instructions* Mary Anne Sanford RN - 05/15/2021 Refer [...] and the need for follow-up with a physician/TEMPLATE REPRODUCTION TECHNICIAN/PA after discharge. Discussed the patient s personal [...] and to not smoke. documented in this encounterSUMMA Work Phone: 1(758) 511-936807-09-2021 [facility]ly [facility] Discharge Summary and Transition Note Kenn Arshad Sr. : 1955 ADMIT DATE: 05/15/2021 DISCHARGE [...] R-VATS, R-lobectomy), Stage IV RCC. Presented to [facility] ER 05/15 with complaints of disorientation with [...] patient's 's conversation with oncologist (Tiara). Mr. Arshad's mental status improved drastically and he was [...] - noted on CTA 05/17/21 done in [place] (see Care everywhere) ? # Troponinemia ?- suspect from accelerated BP ?- EKG with mild ST dep -->?trend trop, tele and EKG # CAD # Hyperlipidemia ?- home meds: cilostazol, enalapril, aspirin, statin ? # Lung adenocarcinoma, right (2020) # COPD ?- s/p R-VATS, RL lobectomy ?- on Inlyta (oral chemo) and Keytruda --> hold ?- [facility] [place] [facility], Dr. Rodriguez ? # Stage IV renal cell cancer (R-kidney mass) ?- mets to lung ? # Hyperkalemia ?- recheck after IVF ? # ETOH abuse PROCEDURES: none CONSULTANTS: Neurology DISCHARGE MEDICATIONS: Significant Medication Changes: - STOP Kenn Mora Sr. Home Medication Instructions LUIS:[id number] Printed on:05/17/21 1108 Medication Information aspirin 81 MG EC tablet [...] Complexity: follow up within 7-14 calendar days (65979) [x] Severe Complexity: follow up within 7 calendar days (40296) FOLLOW UP TESTING, PENDING RESULTS OR REFERRALS [...] above time frame. DI (more content not included)...[facility]07-09-2021 History of Present illness Narrative* Kinsey Lucio, PT - 05/17/2021 11:04 AM EDT Physical Therapy Facility/Department: [facility] TELEMETRY Initial Assessment NAME: Kenn Arshad Sr. : 1955 Date of Service: 05/17/2021 Discharge Recommendations: Home with assist PRN Assessment Assessment: Pt admitted for Encephalopathy with associated gait abnormality and hypertension. 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 This PT wore PPE as per hospital policy Pt wore mask No Bed/chair alarm on prior to session and no alarm after session Kinsey Lucio, PT * Michelle Nuñez - 05/17/2021 9:19 AM EDT Nutrition rescreen completed. Chart reviewed. Patient to be monitored and followed by the diet chief technician. Lalo Nuñez DT * Ginette Hurtado, SAMEER - 05/17/2021 7:41 AM EDT Speech Language Pathology Patient passed the Nursing Swallowing Screening and is on a Regular diet, Cardiac: Low fat, Low cholesterol. High Fiber, KIMMIE with Thin liquids. Completed speech orders as per stroke protocol. Ginette Hutrado MA, CCC-PLUSH DRESSER 05/17/2021 * Carine Morin MD - 05/17/2021 6:43 AM EDT Images from the original note were not included. [facility] Progress Note Kenn Linda Arshad Sr. : 1955(65 y.o.) Date: 05/17/21 Subjective: HPI The patient complains of :encephalopathy 65yo M with PMHx HTN, HLP, lung adenocarcinoma (s/p R-VATS, R-lobectomy), Stage IV RCC. Presented to [facility] ER 05/15 with complaints of disorientation with [...] - noted on CTA 05/17/21 done in [place] (see Care everywhere) # Troponinemia - suspect from accelerated BP - EKG with mild ST dep --> trend trop, tele and EKG # CAD # Hyperlipidemia - home meds: cilostazol, enalapril, aspirin, statin # Lung adenocarcinoma, right (2020) # COPD - s/p R-VATS, RL lobectomy - on Inlyta (oral chemo) and Keytruda --> hold - [facility] [place] [facility], Dr. Rodriguez # Stage IV [...] data, labs radiology reports D/w and patient's (Haylie) at length 6AM-6PM please page: 6PM-6AM please page: [facility] [place] * Silvina Jordan - 05/16/2021 11:24 AM EDT Occupational Therapy Occupational Therapy Initial Assessment/Discharge Date: 05/16/2021 Patient Name: Kenn Arshad Sr. : 1955 Date of Service: 05/16/2021 Discharge Recommendations: Home with assist PRN Assessment Performance deficits / Impairments: Decreased strength;Decreased high-level IADLs Assessment: OT eval completed. Pt. presents with above deficits. Pt. is able to perform basic ADLs,transfer, and ambulate indep. No acute care services [...] SCC (squamous cell carcinoma) of skin, Hypercholesterolemia, Massof right lung, PAD (peripheral artery disease) (HCC), [...] Ambulation Assistance: Independent Transfer Assistance: Independent Active Furnace Erector: Yes Mode of Transportation: Car Occupation: Retired [...] Plan Plan Comment: Discharge OT. OutComes Score [facility] Daily Activity Inpatient How much help for putting on and taking off regular lower body clothing?: None How much help for Bathing?: None How much help for Toileting?: None How much help for putting on and taking off regular upper body clothing?: None How much help for taking care of personal grooming?: None How much help for eating meals?: None [facility] Inpatient Daily Activity Raw Score: 24 [facility] Inpatient ADL T-Scale Score : 57.54 ADL Inpatient CMS 0-100% Score: 0 ADL Inpatient CMS G-Code Modifier : CH Therapy Time Individual Concurrent Group Co-treatment Time In 1054 Time Out 1105 Minutes 11 Goals and/or treatment plan was established in collaboration with patient/family/other representatives. Silvina Jordan S/OT * Silvina Jordan - 05/16/2021 9:40 AM EDT Occupational Therapy Attempt Note Pt currently OOR and getting an MRI per RN. Will attempt OT eval at a later date and time as schedule permits. Silvina Jordan S/OT * Carine Morin MD - 05/16/2021 7:37 AM EDT Images from the original note were not included. [facility] Progress Note Kenn Arshad Sr. : 1955(65 y.o.) Date: 05/16/21 Subjective: HPI The patient complains of :encephalopathy 65yo M with PMHx HTN, HLP, lung adenocarcinoma (s/p R-VATS, R-lobectomy), Stage IV RCC. Presented to [facility] ER 05/15 with complaints of disorientation with [...] attempt (was down in MRI and EEG). Haylie at bedside. Mr. Arshad having echo done. Feels better - no headache until he coughs. Haylie happy to hear about BP. Agrees to stay until tomorrow for further BP titration. Haylie spoke with oncologist already - plan is [...] - noted on CTA 05/17/21 done in [place] (see Care everywhere) # Troponinemia - suspect from accelerated BP - EKG with mild ST dep --> trend trop, tele and EKG # CAD # Hyperlipidemia - home meds: cilostazol, enalapril, aspirin, statin # Lung adenocarcinoma, right (2020) # COPD - s/p R-VATS, RL lobectomy - on Inlyta (oral chemo) and Keytruda --> hold - [facility] [place] [facility], Dr. Rodriguez # Stage IV [...] radiology reports D/w LUPE Oh and patient's (Haylie) at length 6AM-6PM please page: 6PM-6AM please page: [facility] [place] [place] * Celsa Wu, IN SERVICE EDUCATION TEACHER - MARKER DELIVERY - 05/16/2021 7:36 AM EDT PROGRESS NOTE. NEUROLOGY Patient Name:Kenn Arshad . Patient : 1955 Acct: [id number] Date of Admission: 05/15/2021 Room/Bed: 1325/[facility] PCP: Jacob Jennings DO Patient location Telemetry Remains in the hospital due to persistent unresolved acute issues, Subjective: 65M PMH HLD, tobacco abuse, CAD, DDD, renal ca, SCC, lung ca s/p resection March 2021, HTN, PAD presented as stroke team after waking up with confusion, encephalopathy. NIH 2 (partial R eyevision loss/ataxia)-->0. Initial CT, CTA, CTP without acute process. No tPA due to LKW/resolvingsymptoms. Admitted for further work-up. MRI with evidence [...] % sodium chloride infusion, , Intravenous, Continuous, LEXI Erazo CNP, Last Rate: 50 mL/hr at 05/15/212011, New Bag at 05/15/212011 sodium chloride flush 0.9 % injection 5-40 mL, 5-40 mL, Intravenous, 2 times per day, Celsa Venkata Wu APRN - MARKER DELIVERY, 10 mL at 05/15/212010 sodium chloride flush 0.9 % injection 5-40 mL, 5-40 mL, Intravenous, PRN, Celsalizzette Wu APRN -MARKER DELIVERY 0.9 % sodium chloride infusion, 25 mL, Intravenous, PRN, Celsa KStella Wu IN SERVICE EDUCATION TEACHER - MARKER DELIVERY acetaminophen (TYLENOL) tablet 650 mg, 650 mg, Oral, Q4H PRN, 650 mg at 05/16/21 0015 OR acetaminophen (TYLENOL) suppository 650 mg, 650 mg, Rectal, Q4H PRN, Celsa Venkata Wu APRN - MARKER DELIVERY aspirin EC tablet 81 mg, 81 mg, Oral, Daily, 81 mg at 05/15/212011 OR aspirin suppository 300 mg, 300 mg, Rectal, Daily, Celsa K. Gezzar, IN SERVICE EDUCATION TEACHER - MARKER DELIVERY enoxaparin (LOVENOX) injection 40 mg, 40 mg, Subcutaneous, Daily, Celsa Venkata Wu, IN SERVICE EDUCATION TEACHER - MARKER DELIVERY, 40mg at 05/15/212012 rosuvastatin (CRESTOR) tablet 40 mg, 40 mg, Oral, Nightly, Celsa Venkata Wingar, IN SERVICE EDUCATION TEACHER - MARKER DELIVERY, 40 mg at 05/15/212011 labetalol (NORMODYNE;TRANDATE) injection 10 mg, 10 mg, Intravenous, Q4H PRN, Celsa Venkata Wu, IN SERVICE EDUCATION TEACHER - MARKER DELIVERY hydrALAZINE (APRESOLINE) injection 20 mg, 20 mg, Intravenous, Q6H PRN, Celsa Venkata Wu, IN SERVICE EDUCATION TEACHER - MARKER DELIVERY perflutren lipid microspheres (DEFINITY) injection 1.65 mg, 1.5 mL, Intravenous, ONCE PRN, Celsa Venkata Wu, IN SERVICE EDUCATION TEACHER - MARKER DELIVERY sodium chloride flush 0.9 % injection 5-40 mL, 5-40 mL, Intravenous, PRN, Celsa Venkata Wu, IN SERVICE EDUCATION TEACHER -MARKER DELIVERY Continuous Infusions: sodium chloride sodium chloride 50 [...] finger to nose Legs Intact heel knee herman testing Tremors not present Gait Normal NIHSS: [...] Urine 6.5 5.0 - 8.0 NA Specific [place], Urine >1.030 (A) 1.005 - 1.030 NA [...] eGFR >90.0 >60 mL/min EGFR IF NonAfrican Gibraltarian 88.9 >60 mL/min Calcium 8.3 (L) 8.4 [...] - On chemotherapy currently, receives care at [facility] Tobacco abuse - [place] on cessation Please be mindful of seizure [...] being able to drive Attempted to call Haylie to update her on above but went to [facility]. Will attempt to meet her here when [...] later today. Will discuss with primary team. * Sudeep Montesinos, SAMEER - 05/16/2021 7:09 AM EDT Speech Language Pathology Orders noted. Pt passed nursing dysphagia screen, on a cardiac diet. ST to sign off. documented [facility] this [facility] Work Phone: 1(340) 706-521105-07-2021 NoteDischarge Summary Kenn Celisjohn Martinez. : 1955 ADMIT DATE: 03/12/2021 DISCHARGE DATE: 03/15/2021 ATTENDING PHYSICIAN: Anaid Zee MD VISIT STATUS: Admission CODE STATUS: Prior DISCHARGE DIAGNOSES: Active Problems: Adenosquamous carcinoma of lung, left (HCC) Resolved Problems: * No resolved hospital problems. * Lung Carcinoma metastatic to peribronchial lymph nodes Obesity BMI 31 HOSPITAL COURSE: Kenn Arshad is a 65 y.o. male who presented to [facility] on 03/12/2021 For Right VATS, Right Lower [...] was discharged with instructions as follows. CONSULTANTS: marielena SIGNIFICANT DIAGNOSTIC STUDIES: Pathology DISCHARGE MEDICATIONS: Kenn Arshad Sr. Home Medication Instructions LUIS:[id number] Printed on:03/22/21 0661 Medication Information aspirin 81 MG EC tablet [...] weeks SIGNED: Evelio Hernandez MD 03/22/2021, 6:51 [facility]05-07-2021 Hospital Discharge instructions * Instructions* Evelio Hernandez MD - 03/15/2021 Images from [...] -Chest pain. -Abdominal distention. documented in this [facility] Work Phone: 1(236) 894-246205-07-2021 History of Present illness Narrative* Tara Lunsford, [facility] - 03/15/2021 11:51 AM EDT [facility] Respiratory Care Department Progress Note SpO2 at [...] Patient mobile at home Y/N = Yes * Halina Palma, IN SERVICE EDUCATION TEACHER - MARKER DELIVERY - 03/15/2021 10:00 AM EDT PAGING: The Acute Pain Service providers are available via [employer]. Please reference [employer] for Pain Management Provider JEWELRY STORE MANAGER and direct all questions to the provider listed. Due to the current environment of [place] [address], PPE was worn for the duration of all face to face encounters including but not limited to an N95 in accordance with [facility] and hospital guidelines. 03/15/2021 Referring Physician: Anaid [...] temperature 97.4 F (36.3 C), temperature source Oral,resp. rate 16, height 5' 4 (1.626 m), [...] Dr. Mcguire, neg stress test 08/26 at [place] COPD (chronic obstructive pulmonary disease) (HCC) per cxr (smoker) DDD (degenerative disc disease), cervical NSAID therapy Essential hypertension 1993 Family history of diabetes mellitus sister H/O colonoscopy 02/2019 [facility]- small polyp- due 2023 History of colon polyps 2000 [facility], 2013, 2018 History of renal carcinoma 07/2006 Dr. Tariq History of SCC (squamous cell carcinoma) of skin 2011 scalp - [facility] [employer] Hypercholesterolemia LDL Mass of right lung 01/2021 Workup for lung nodule clinic pending PAD (peripheral artery disease) (HCC) 07/2019 Rt worse than Lt, pt defering angiogram rec per Dr. Eugene Prostate cancer screening 06/2020 Right carotid bruit [...] Mother Coronary Art Dis Father age 50 [place] - smoker Diabetes Sister Coronary Art Dis Sister CABG No Known Problems Brother Coronary Art Dis Brother age 47 [place] No Known Problems Sister No Known Problems [...] Scheduled APAP 2000mg 3000mg 3 g PRN PREPRINT ANALYST (discontinued) 1.8mg 5.7 mg Oxycodone 40 mg Hydromorphone 0 mg Exparel Block Injection date: 03/12/21 Medication : Bupivacaine liposome injectable suspension Location: Erector Spinae/Serratus Plane Side Effects: Denies nausea, headache, constipation, dysgeusia, pyrexia, hypoesthesia, muscle twitching, vomiting, pruritus, dizziness, hypertension, dyspepsia. Assessment / Pain Management Plan: 1. Acute Postsurgical chest pain dc Hydromorphone PREPRINT ANALYST. Continue Oxycodone 5 - 10 mg po q4h prn moderate to severe breakthrough pain. Continue Hydromorphone 0.25 mg - 0.5 mg IVP q4h prn moderate to severe breakthrough pain. Please utilize oral medications first. Patient has not required dose overnight. Continue Acetaminophen 1000 mg po TID scheduled ATC. Liver enzymes WNL, last checked: 03/12/21. Start5/5 @ 1400 Continue Lidocaine patches x 2. [...] deep breathing, digestion, circulation and your body's abilityto heal itself. Patient pain is well controlled at this time on current pain regimen. We will sign off at this time. Please re-consult our service if patient's pain becomes uncontrolled. Thank you for inviting us toparticipate in the care of this patient. Plan discussed with patient who appears to understand and agrees. PAGING: The Acute Pain Service providers are available via [employer]. Please reference [employer] for Pain Management Provider JEWELRY STORE MANAGER and direct all questions to the provider listed. * Evelio Hernandez MD - 03/15/2021 6:26 AM EDT Images from the original note were not included. Cardiothoracic Surgery Note 03/15/2021 Procedure Biopsy proven RLL NSCLC S/P Right VATS Right muscle sparing thoracotomy Right lower lobectomy Right upper lobe wedge Right middle lobe wedge Mediastinal lymph node dissection Dr. Zee History of Present Illness Kenn Arshad Sr. is a 65 y.o. male doing [...] Dr. Mcguire, neg stress test 08/26 at [place] COPD (chronic obstructive pulmonary disease) (HCC) per cxr (smoker) DDD (degenerative disc disease), cervical NSAID therapy Essential hypertension 1993 Family history of diabetes mellitus sister H/O colonoscopy 02/2019 [facility]- small polyp- due 2023 History of colon polyps 2000 [facility], 2013, 2018 History of renal carcinoma 07/2006 Dr. Tariq History of SCC (squamous cell carcinoma) of skin 2011 scalp - [facility] [employer] Hypercholesterolemia LDL Mass of right lung 01/2021 Workup for lung nodule clinic pending PAD (peripheral artery disease) (HCC) 07/2019 Rt worse than Lt, pt defering angiogram rec per Dr. Eugene Prostate cancer screening 06/2020 Right carotid bruit 2014 <50% per repeat doppler, 12/26 Right inguinal hernia defers OR Smoker Past Surgical History Past Surgical History: Procedure Laterality Date COLONOSCOPY 2013 [facility] COLONOSCOPY 02/2019 [facility]- small polyp- due 2023 CORONARY ANGIOPLASTY WITH STENT PLACEMENT 2002 OTHER SURGICAL HISTORY 02/20/2021 EBUS/ENB OTHER SURGICAL HISTORY 03/12/2021 Right VATS thoracotomy SKIN CANCER DESTRUCTION 2012 squamous cell per Brett TOTAL NEPHRECTOMY Left 2005 [facility] Family History Family History Problem Relation Age of Onset Stroke Mother age 77 Coronary Art Dis Mother CABG Lung Cancer Mother Coronary Art Dis Father age 50 [place] - smoker Diabetes Sister Coronary Art Dis Sister CABG No Known Problems Brother Coronary Art Dis Brother age 47 [place] No Known Problems Sister No Known Problems [...] mg, 2.5 mg, Nebulization, Q4H WA, LEXI Alvarado, 2.5 mg at 03/14/21 1622 polyethylene glycol [...] the proposed treatment or procedure have been discussed.The risks and benefits of the proposed treatment [...] This note may have been dictated using [employer] Medical Practice Edition 2.6 and/or [employer] Voice Recognition Feature. The document was proofread, however unrecognized voice recognition car icer errors may be present. * Renetta Kelley RN - 03/15/2021 5:17 AM EDT Pt walked around unit ( on room air ) pt did well and did not start to de sat until last 5 feet - pt sat down and o2 saturation Returned to 92%and sob went away . * Maria R Hernandez - 03/14/2021 10:54 AM EDT .Nutrition rescreen completed. Chart reviewed. Patient to be monitored and followed by the diet chief technician.HEIDI Fernandes * Jeannette Marroquin APRN - THANH - 03/14/2021 8:48 AM EDT PAGING: The Acute Pain Service providers are available via [employer]. Please reference [employer] for Pain Management Provider JEWELRY STORE MANAGER and direct all questions to the provider listed. Due to the current environment of [place] [address], PPE was worn for the duration of all face to face encounters including but not limited to an N95 in accordance with [facility] and hospital guidelines. 03/14/2021 Referring Physician: Anaid [...] talkative and cooperative throughout exam, controlled with PREPRINT ANALYST. Tolerating diet, denies n/v. Pt agreeable to [...] Dr. Mcguire, neg stress test 08/26 at [place] COPD (chronic obstructive pulmonary disease) (HCC) per cxr (smoker) DDD (degenerative disc disease), cervical NSAID therapy Essential hypertension 1993 Family history of diabetes mellitus sister H/O colonoscopy 02/2019 [facility]- small polyp- due 2023 History of colon polyps 2000 [facility], 2013, 2018 History of renal carcinoma 07/2006 Dr. Tariq History of SCC (squamous cell carcinoma) of skin 2011 scalp - [facility] [employer] Hypercholesterolemia LDL Mass of right lung 01/2021 Workup for lung nodule clinic pending PAD (peripheral artery disease) (HCC) 07/2019 Rt worse than Lt, pt defering angiogram rec per Dr. Eugene Prostate cancer screening 06/2020 Right carotid bruit 2014 <50% per repeat doppler, 12/26 Right inguinal hernia defers OR Smoker Past Surgical History: Procedure Laterality Date COLONOSCOPY 2013 [facility] COLONOSCOPY 02/2019 [facility]- small polyp- due 2023 CORONARY ANGIOPLASTY WITH STENT PLACEMENT 2002 OTHER SURGICAL HISTORY 02/20/2021 EBUS/ENB OTHER SURGICAL HISTORY 03/12/2021 Right VATS thoracotomy SKIN CANCER DESTRUCTION 2012 squamous cell per Brett TOTAL NEPHRECTOMY Left 2005 [facility] Family History Problem Relation Age of Onset Stroke Mother age 77 Coronary Art Dis Mother CABG Lung Cancer Mother Coronary Art Dis Father age 50 [place] - smoker Diabetes Sister Coronary Art Dis Sister CABG No Known Problems Brother Coronary Art Dis Brother age 47 [place] No Known Problems Sister No Known Problems [...] 0700 03/12/202103/13 Scheduled APAP 2000mg 3000mg PRN PREPRINT ANALYST 1.8mg 5.7 mg Exparel Block Injection date: 03/12/21 Medication : Bupivacaine liposome injectable suspension Location: Erector Spinae/Serratus Plane Side Effects: Denies nausea, headache, constipation, dysgeusia, pyrexia, hypoesthesia, muscle twitching, vomiting, pruritus, dizziness, hypertension, dyspepsia. Assessment / Pain Management Plan: 1. Acute Postsurgical chest pain dc Hydromorphone PREPRINT ANALYST. Order Oxycodone 5 - 10 mg po q4h prn moderate to severe breakthrough pain. Order Hydromorphone 0.25 mg - 0.5 mg IVP q4h prn moderate to severe breakthrough pain. Please utilize oral medications first. Continue Acetaminophen 1000 mg po TID scheduled ATC. Liver enzymes WNL, last checked: 5/4/21. Start5/5 @ 1400 Continue Lidocaine patches x 2. [...] deep breathing, digestion, circulation and your body's abilityto heal itself. Will follow. Plan discussed with patient who appears to understand and agrees. PAGING: The Acute Pain Service providers are available via [employer]. Please reference [employer] for Pain Management Provider JEWELRY STORE MANAGER and direct all questions to the provider listed. * Evelio Hernandez MD - 03/14/2021 7:46 AM EDT Images from the original note were not included. Cardiothoracic Surgery Note 03/14/2021 Procedure Biopsy proven RLL NSCLC S/P Right VATS Right muscle sparing thoracotomy Right lower lobectomy Right upper lobe wedge Right middle lobe wedge Mediastinal lymph node dissection Dr. Zee History of Present Illness Kenn Arshad Sr. is a 65 y.o. male doing [...] 02/2021 rx pnd CAD (coronary artery disease) [address] Mcguire, neg stress test 08/26 at [facility] COPD (chronic obstructive pulmonary disease) (HCC) per cxr (smoker) DDD (degenerative disc disease), cervical NSAID therapy Essential hypertension 1993 Family history of diabetes mellitus sister H/O colonoscopy 02/2019 [facility]- small polyp- due 2023 History of colon polyps 2000 [facility], 2013, 2018 History of renal carcinoma 07/2006 Dr. Tariq History of SCC (squamous cell carcinoma) of skin 2011 scalp - [employer] Hypercholesterolemia LDL Mass of right lung 01/2021 Workup for lung nodule clinic pending PAD (peripheral artery disease) (HCC) 07/2019 Rt worse than Lt, pt defering angiogram rec per Dr. Eugene Prostate cancer screening 06/2020 Right carotid bruit 2014 <50% per repeat doppler, 12/26 Right inguinal hernia defers OR Smoker Past Surgical History Past Surgical History: Procedure Laterality Date COLONOSCOPY 2013 [facility] COLONOSCOPY 02/2019 [facility]- small polyp- due 2023 CORONARY ANGIOPLASTY WITH STENT PLACEMENT 2002 OTHER SURGICAL HISTORY 02/20/2021 EBUS/ENB OTHER SURGICAL HISTORY 03/12/2021 Right VATS thoracotomy SKIN CANCER DESTRUCTION [address] [facility] TOTAL NEPHRECTOMY Left 2005 [place] Family History Family History Problem Relation Age of Onset Stroke Mother age 77 Coronary Art Dis Mother CABG Lung Cancer Mother Coronary Art Dis Father age 50 [place] - smoker Diabetes Sister Coronary Art Dis Sister CABG No Known Problems Brother Coronary Art Dis Brother age 47 [place] No Known Problems Sister No Known Problems [...] infusion, , Intravenous, Continuous, Dawit Valiente DO, Stopped at 03/13/21 0802 sodium chloride [...] mg, 2.5 mg, Nebulization, Q4H WA, LEXI Alvarado, 2.5 mg at 03/13/212017 polyethylene glycol (GLYCOLAX) [...] in sodium chloride 0.9 % 30 mL PREPRINT ANALYST, , Intravenous, Continuous, LEXI Roach CNP, Rate Verify at 03/13/21 0745 [START [...] the proposed treatment or procedure have been discussed.The risks and benefits of the proposed treatment [...] This note may have been dictated using [employer] Practice Edition 2.6 and/or [employer] Voice Recognition Feature. The document was proofread, however unrecognized voice recognition car icer errors may be present. * Rustam Rebolledo, IN SERVICE EDUCATION TEACHER - [facility] - 03/13/2021 7:30 AM EDT Images from the original note were not included. Cardiothoracic Surgery Note 03/13/2021 Procedure Biopsy proven RLL NSCLC S/P Right VATS Right muscle sparing thoracotomy Right lower lobectomy Right upper lobe wedge Right middle lobe wedge Mediastinal lymph node dissection Dr. Zee History of Present Illness Kenn Arshad Sr. is a 65 y.o. male doing well post - VSS overnight, poor effort to cough, CT towater seal, pain controlled with PREPRINT ANALYST POD #1: R Vats, LL lobectomy, RML wedge, RUL wedge No changes since seen in clinic. Past Medical History Past Medical History: Diagnosis Date Adenocarcinoma of right lung (HCC) 02/2021 rx pnd CAD (coronary artery disease) [address] Mcguire, neg stress test 08/26 at [facility] COPD (chronic obstructive pulmonary disease) (HCC) per cxr (smoker) DDD (degenerative disc disease), cervical NSAID therapy Essential hypertension 1993 Family history of diabetes mellitus sister H/O colonoscopy 02/2019 [facility]- small polyp- due 2023 History of colon polyps 2000 [facility], 2013, 2018 History of renal carcinoma 07/2006 Dr. Tariq History of SCC (squamous cell carcinoma) of skin 2011 scalp - [employer] Hypercholesterolemia LDL Mass of right lung 01/2021 Workup for lung nodule clinic pending PAD (peripheral artery disease) (HCC) 07/2019 Rt worse than Lt, pt defering angiogram rec per Dr. Eugene Prostate cancer screening 06/2020 Right carotid bruit 2014 <50% per repeat doppler, 12/26 Right inguinal hernia defers OR Smoker Past Surgical History Past Surgical History: Procedure Laterality Date COLONOSCOPY 2013 [facility] COLONOSCOPY 02/2019 [facility]- small polyp- due 2023 [...] Mother Coronary Art Dis Father age 50 [place] - smoker Diabetes Sister Coronary Art Dis Sister CABG No Known Problems Brother Coronary Art Dis Brother age 47 [place] No Known Problems Sister No Known Problems [...] DO, Last Rate: 50 mL/hr at 03/12/21 105, New Bag at 03/12/21 105 dextrose 5 % in lactated ringers infusion, , Intravenous, Continuous, LEXI Alvarado CNP, Last Rate: 50 mL/hr at 03/12/212021, Rate Verify at 03/12/212021 sodium chloride flush 0.9 % injection 5-40 mL, 5-40 mL, Intravenous, 2 times per day, LEXI Alvarado CNP sodium chloride flush 0.9 % injection 5-40 mL, 5-40 mL, Intravenous, PRN, eMrlene Castro APRN - THANH 0.9 % sodium chloride infusion, 25 mL, Intravenous, PRN, LEXI Alvarado CNP enoxaparin (LOVENOX) injection 40 mg, 40 mg, Subcutaneous, Daily, LEXI Alvarado CNP, 40 mg at 03/12/212021 albuterol (PROVENTIL) nebulizer solution 2.5 mg, 2.5 mg, Nebulization, Q4H WA, LEXI Alvarado, 2.5 mg at 03/12/212041 polyethylene glycol (GLYCOLAX) [...] in sodium chloride 0.9 % 30 mL PREPRINT ANALYST, , Intravenous, Continuous, LEXI Roach CNP, New Bag at 03/12/21 180 [START ON 03/16/2021] lidocaine 4 % external [...] - C&DB poor effort - Pain continue PREPRINT ANALYST - placed CT to water seal - regular diet / bowel regiment - Disclaimer INFORMED CONSENT:The nature and purpose of the proposed treatment or procedure have been discussed.The risks and benefits of the proposed treatment [...] This note may have been dictated using [employer] Medical Practice Edition 2.6 and/or [employer]o Voice Recognition Feature. The document was proofread, however unrecognized voice recognition car icer errors may be present. * Jayla Hutson RN - 03/12/2021 5:10 PM EDT Pt arrived to PACU from OR. Pt ID verified. Monitors applied with alarms on. Vital signs stable. * Brandie Hare RN - 03/12/2021 10:45 AM EDT Called radiology for CXR. Waiting for response. * Brandie Hare RN - 03/12/2021 10:22 AM EDT EKG at patient bedside. documented in this [facility] Work Phone: [phone] Evaluation note* Diagnosis Onset Date Resolution Status Essential (primary) hypertension chronic 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 Nonrheumatic aortic (valve) stenosis with insufficiency chronic History of coronary artery stent placement July 172002 resolved 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 acute Cancer of right kidney acute Encounter for immunotherapy acute 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 Drug rash chronic History of primary malignant neoplasm of left kidney chronic Iron deficiency anemia due t o chronic blood loss chronic 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 acute Cancer of right kidney acute Encounter for immunotherapy acute Epistaxis acute 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 Drug rash chronic History of primary malignant neoplasm of left kidney chronic Iron deficiency anemia due t o chronic blood loss chronic 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 acute Cancer of right kidney acute 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 Drug rash chronic History of primary malignant neoplasm of left kidney chronic Iron deficiency anemia due t o chronic blood loss chronic Anemia resolved 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 acute Cancer of right kidney acute 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 Drug rash chronic History of primary malignant neoplasm of left kidney chronic 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 acute Cancer of right kidney acute Encounter for immunotherapy acute Frequent headaches acute 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 Drug rash chronic 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 metastasis acute Brain metastasis acute 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 acute Cancer of right kidney acute Encounter for immunotherapy acute 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 metastasis acute 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 acute Cancer of right kidney acute 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 Sinus congestion acute History of primary malignant neoplasm of left kidney chronic 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 acute History of lobectomy of lung acute Hypoxia acute Pneumonia acute History of primary malignant neoplasm of left kidney chronic [facility] Work Phone: Consult note Author David Rm [facility] Note Date/Time March 24, 2025 4:09p m [facility] Medical Records Department [address] [place] [address] Counseling Note - Pharmacy 03/24/25 1608 MR#: [id number] Acct: [id number] Name: KENN ARSHAD Rep #:[id number] : 1955 69 From: David Rm PCP: Dr. Jacob Jennings, DO Status:AD M IN Y Location: [id number] Pharmacy [facility] has performed discharge medication reconciliation and counseling for this patient. The patient's discharge medication list was reviewed for discrepancies and discrepancies were resolved. The patient was counseled on the following discharge medications and changes in medications for homegoing were reviewed. The Reason for Use, instructions for use, and potential side effects were reviewed for all new medications. The patient's questions regarding all of their medications were answered. 1. Azithromycin 500 mg PO daily x 14 days 2. Doxycycline 100 mg PO BID x 7 days 3. Metoclopramide 10 mg PO Q6H x 14 days 4. Pantoprazole 40 mg PO daily 5. Prednisone 40 mg PO daily The patient was able to verbally demonstrate an understanding of their dischargemedications. Medications at Discharge Home Medications rosuvastatin 40 mg tablet (Crestor) 40 mg PO QHS CHOLESTEROL 08/18/18 carvedilol 25 mg tablet 25 mg PO BID blood pressure 04/30/21 albuterol sulfate 90 mcg/actuation aerosol inhaler 1 puff inhalation Q6H PRN SOB05/31/21 hydralazine 50 mg tablet 50 mg PO BID blood pressure 05/31/21 apixaban 5 mg tablet (Eliquis) 2.5 mg (1/2 x 5 mg) PO BID #60 tabs 07/20/23 amlodipine 10 mg tablet 10 mg PO DAILY #90 tabs 08/21/23 ipratropium 0.5 mg-albuterol 3 mg (2.5 mg base)/3 mL nebulization soln 3 ml inhalation Q4H PRN shortness of breath or wheezing #180 mL 09/07/23 pembrolizumab 25 mg/mL intravenous solution (Keytruda) 200 mg IV Q21D 12/14/24 azithromycin 500 mg tablet 500 mg PO DAILY 14 days #14 tabs 03/24/25 doxycycline monohydrate 100 mg capsule 100 mg PO BID 7 days #14 caps 03/24/25 metoclopramide HCl 10 mg tablet (Reglan) 10 mg PO Q6H nausea and vomiting 2 weeks #56 tabs 03/24/25 pantoprazole 40 mg tablet,delayed release (Protonix) 40 mg PO DAILY 30 days #30 tabs 03/24/25 prednisone 20 mg tablet 40 mg (2 x 20 mg) PO DAILY 30 days #60 tabs 03/24/25 03/24/25 1609 <Electronically signed by David rey> Date _ David Dozierigner Signature (if applicable): Date CC: ~ Signed [facility] Work Phone: Discharge summary Author Evelio Hong [facility] Note Date/Time March 24, 2025 3:39p m [facility] Medical Records Department [address] [place] [id number] Instructions for Home/Discharge Instructions 03/24/25 1454 MR#: [id number] Acct: [id number] Name: KENN ARSHAD Rep #:[id number] : 1955 69 From: Evelio mayo MD PCP: Dr. Jacob Jennings, DO Status:AD M IN Discharge Instructions Diet Discharge Diet: No restrictions DC O2, CPAP, BIPAP needs Home O2 Discharge instructions: No Dressing / Incision Discharge Activity: Return to Normal Activity Dressing / Incision Call your doctor if you observe: Fever of 101 or Higher, Shortness of breath, Dizziness, Fainting spells, Swelling in the ankles, Chest pain and Increased palpitations (irregular heartbeat) Follow Up Care Test Results: Test results from this visit will be discussed in further detail at your follow- up appointment, if applicable. Discharge Plan Admission Admit Date/Time: 03/21/25 16:55 Attending Provider: Evelio Hong Primary Care Provider: Jacob Jennings Consulting Providers: Sayra Fuentes; Emmanuel Kaiser Discharge Orders/Prescriptions Prescriptions: New azithromycin 500 mg tablet 500 mg PO DAILY 14 Days Qty: 14 0RF metoclopramide HCl [Reglan] 10 mg tablet 10 mg PO Q6H 14 Days Qty: 56 0RF prednisone 20 mg tablet 40 mg PO DAILY 30 Days Qty: 60 0RF doxycycline monohydrate 100 mg capsule 100 mg PO BID 7 Days Qty: 14 0RF pantoprazole [Protonix] 40 mg tablet,delayed release (DR/EC) 40 mg PO DAILY 30 Days Qty: 30 4RF Continued carvedilol 25 mg tablet 25 mg PO BID Rx Instructions: must administer with a meal/food albuterol sulfate 90 mcg/actuation HFA aerosol inhaler 1 puff inhalation Q6H PRN (Reason: SOB) amlodipine 10 mg tablet 10 mg PO DAILY Qty: 90 3RF rosuvastatin [Crestor] 40 MG tablet 40 mg PO QHS Keytruda 25 mg/mL solution 200 mg IV Q21D hydralazine 50 mg tablet 50 mg PO BID Eliquis 5 mg tablet 2.5 mg PO BID Qty: 60 12RF ipratropium-albuterol 0.5 mg-3 mg(2.5 mg base)/3 mL solution for nebulization 3 ml inhalation Q4H PRN (Reason: shortness of breath or wheezing) Qty: 180 3RF Discontinued omeprazole 20 mg capsule,delayed release(DR/EC) 20 mg PO DAILY Referrals / Follow Up: Jacob Jennings DO [Primary Care Provider] - Disposition Disposition (needs filled in before D/C Order can be placed): Home Health Service 03/24/25 1539<Electronically signed by Evelio Hong MD>Evelio Hong MD CC: Dr. Sayra Fuentes MD; Dr. Jacob Jennings DO; Dr. Emmanuel Kaiser MD ~ Signed [facility] Work Phone: Discharge summary Author Antwan Pitts [facility] Note Date/Time August 22, 2025 1 0:39am [facility] Medical Records Department [address] [place] [address] Discharge Summary 08/22/25 1022 MR#: [id number] Acct: [id number] Name: KENN ARSHAD Rep #:[id number] : 1955 69 From: Antwan Pitts MD PCP: Dr. Jacob Jennings, DO Status:AD M IN Location: [place] [id number] Providers Date of Admission: 08/19/25 Primary Care Physician: Dr. Jacob Jennings, DO Consultations 08/20/25 08:27 Consult: Plastic Surgery Routine Consulting Provider: Artemio Farrar Reason for Consult: right hand cat bite, blister.cellulitis EMERGENT Consult: No MD Notified: Yes Date Notified: 08/20/25 Time Notified: 08:27 Method of Notification: Verbal Reason For Visit: CELLULITIS RT ARM, R/O SEPSIS Diagnosis Discharge Diagnosis (1) Cellulitis of right upper extremity: Status: Acute Code(s): L03.113 - Cellulitis of right upper limb Plan Patient is a 69-year-old gentleman who presented from an outside ED with right upper extremity swelling following recent cat scratch/bite 1. Right upper extremity cellulitis ? Following a cat bite. Imaging studies demonstrated right hand and forearm large amount of soft tissue swelling with no gas no foreign bodies. Subsequent imaging with CT did not demonstrate any fluid collection. Consult was placed toplastic surgery patient management broad-spectrum antibiotic therapy with Unasyn ? 08/22/2025; wound cultures not sent on admission decision was made to discharge patient on broad-spectrum antibiotic therapy on discharge with doxycycline, Augmentin as well as Bactrim in view of patient being immunocompromised 2. History of metastatic renal CA ? Status post left nephrectomy History of non-small cell lung CA ? Patient is on immunotherapy 4. Coronary artery disease ? With previous PCI 5. Hypertension ? Blood pressure controlled, home medications continued with dose adjustment as needed 6. History of previous VTE ? Patient is on systemic anticoagulation with apixaban 7. Dyslipidemia ?Patient is on statin therapy, continued at home dose 8. GERD ? On PPI 9. History of celiac disease ? Patient is on oral budesonide 10. DVT prophylaxis ? Patient already on systemic anticoagulation with apixaban Time spent in the patient's overall evaluation,decision-making process, review of diagnostic data, adjustment of management, discussion with other providers, nursing nursing and ancillary staff involved in patient's care documentation, 35 Minutes Medications at Discharge Home Medications rosuvastatin 40 mg tablet (Crestor) 40 mg PO QHS CHOLESTEROL 08/18/18 carvedilol 25 mg tablet 25 mg PO BID blood pressure 04/30/21 hydralazine 50 mg tablet 50 mg PO BID blood pressure 05/31/21 amlodipine 10 mg tablet 10 mg PO DAILY #90 tabs 08/21/23 pembrolizumab 25 mg/mL intravenous solution (Keytruda) 200 mg IV Q21D Kidney cancer 12/14/24 fluticasone fur. 100 mcg-umeclid 62.5 mcg-vilant 25 mcg inhalat.powder (Trelegy Ellipta) 1 inh inhalation QDAY #60 ea 06/09/25 ipratropium 0.5 mg-albuterol 3 mg (2.5 mg base)/3 mL nebulization soln 3 ml inhalation Q4H PRN shortness of breath or wheezing #180 mL 06/09/25 triamcinolone acetonide 0.1 % topical cream 1 applic topical DAILY itching of legs 06/09/25 budesonide 3 mg capsule,delayed,extended release 6 mg PO QDAY ciliac disease 08/04/25 apixaban 5 mg tablet (Eliquis) 2.5 mg PO DAILY blood thinner 08/19/25 omeprazole 20 mg capsule,delayed release 20 mg PO DAILY Gastric burning 08/19/25 apixaban 2.5 mg tablet (Eliquis) 2.5 mg PO BID blood thinner 08/20/25 amoxicillin 875 mg-potassium clavulanate 125 mg tablet 1 tab PO BID 7 days #14 tabs 08/22/25 doxycycline hyclate 100 mg capsule 100 mg PO BID 7 days #14 caps 08/22/25 sulfamethoxazole 800 mg-trimethoprim 160 mg tablet (Bactrim DS) 1 tab PO BID #14tabs 08/22/25 Physical Exam Narrative GENERAL: cooperative HEENT: Atraumatic; normocephalic EYES; Anicteric, Normal Conjunctiva NECK; supple, normal thyroid, RESPIRATORY: Diminished to auscultation CARDIOVASCULAR: Regular S1 S2, GI: soft, normoactive bowel sounds, : No Renal angle tenderness; EXTREMITIES: An area of induration on the left forearm MUSCULOSKELETAL: no muscle wasting NEURO: Awake; no lateralizing signs. SKIN: No Rash PSYCH; Flat affect Weight / BMI Weight Weight: 81.7 kg Body Mass Index (BMI) 29.9 ABG / Lab / Microbiology Data 08/22/25 05:15 08/22/25 05:15 Laboratory: Laboratory Results - last 24 hr 08/22/25 05:15: WBC 6.6, RBC 4.36 L, Hgb 10.6 L, Hct 32.8 L, MCV 75.2 L, MCH 24.3 L, MCHC 32.3, RDW Std Deviation 43.7, RDW Coeff of Kailey 15.9 H, Plt Count 175, MPV 9.4, Immature Gran % (Auto) 1.400 H, Neut % (Auto) 78.8 H, Lymph % (Auto) 10.9 L, [place] % (Auto) 6.8, Eos % (Auto) 1.8, Baso % (Auto) 0.3, Absolute Neuts (auto) 5.2, Absolute Lymphs (auto) 0.72 L, Nucleated RBC % 0, Sodium 140, Potassium 3.7, Chloride 108, Carbon Dioxide 20.2 L, Anion Gap 11, BUN 18, Creatinine 0.79, Estim Creat Clear Calc 83.35, Est GFR (MDRD) Non-Af 95, BUN/Creatinine Ratio 22.1 H, Glucose 87, Calcium 8.4, Phosphorus 2.8, Magnesium 2.2 D/C Instructions Discharge Activity: Return to Normal Activity Call your doctor if you observe: Fever of 101 or Higher, Shortness of breath, Fainting spells and Chest pain DC O2, CPAP, BIPAP Needs Home O2 Discharge instructions: No Meaningful Use Info Meaningful Use Meaningful Use Diagnoses (Choose all that apply): None applicable Discharge Plan Admission Admit Date/Time: 08/19/25 19:52 Attending Provider: Antwan Pitts Primary Care Provider: Jacob Jennings Consulting Providers: Chris Medina; Artemio Farrar; Emmanuel Kaiser Discharge Orders/Prescriptions Prescriptions: New doxycycline hyclate 100 mg capsule 100 mg PO BID 7 Days Qty: 14 0RF amoxicillin-pot clavulanate 875-125 mg tablet 1 tab PO BID 7 Days Qty: 14 0RF sulfamethoxazole-trimethoprim [Bactrim DS] 800-160 mg tablet 1 tab PO BID Qty: 14 0RF Continued carvedilol 25 mg tablet 25 mg PO BID Rx Instructions: must administer with a meal/food amlodipine 10 mg tablet 10 mg PO DAILY Qty: 90 3RF triamcinolone acetonide 0.1 % cream 1 applic topical DAILY ipratropium-albuterol 0.5 mg-3 mg(2.5 mg base)/3 mL solution for nebulization 3 ml inhalation Q4H PRN (Reason: shortness of breath or wheezing) Qty: 180 3RF Trelegy Ellipta 100-62.5-25 mcg blister with device 1 inh inhalation QDAY Qty: 60 3RF Rx Instructions: administer at approximately the same time(s) each day budesonide 3 mg capsule,delayed,extend.release 6 mg PO QDAY rosuvastatin [Crestor] 40 MG tablet 40 mg PO QHS Keytruda 25 mg/mL solution 200 mg IV Q21D omeprazole 20 mg capsule,delayed release(DR/EC) 20 mg PO DAILY Eliquis 5 mg tablet 2.5 mg PO DAILY Eliquis 2.5 mg tablet 2.5 mg PO BID hydralazine 50 mg tablet 50 mg PO BID Referrals / Follow Up: Jacob Jennings DO [Primary Care Provider, Family Practice] Artemio Farrar MD [Med Staff - Active Staff, Plastic Surgery] - Within 1 Week Disposition Disposition (needs filled in before D/C Order can be placed): Home, Self Care Charges/Coding Visit Charges Inpatient E&M: 93285 Disch Hosp >30min 08/22/25 1039 <Electronically signed by Antwan Pitts MD> Cosigner Signature (if applicable): CC: Dr. Antwan Pitts MD; Dr. Jacob Jennings DO~ Signed [facility] Work Phone: Evaluation + Plan note No data available for this section [facility] Evaluation note* Diagnosis Adenosquamous carcinoma of lung, left (HCC)- Primary documented in this encounter [facility] Work Phone: Evaluation note* Diagnosis Ataxia- Primary Lack of coordination Hypertension, unspecified type Encephalopathy Encephalopathy, unspecified Vision loss Unspecified visual loss Aphasia Seizure (HCC) Other convulsions CAD (coronary artery disease) Coronary atherosclerosis of unspecified type of vessel, [place] or graft Hypercholesterolemia Pure hypercholesterolemia COPD (chronic [...] encounter [facility] Work Phone: Evaluation note* Diagnosis Onset Date Resolution Status ELANA (acute kidney injury) ac ruby 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 acute Cancer of right kidney acute Drug rash acute Itching acute 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 History of primary malignant neoplasm of left kidney chronic ELANA (acute kidney injury) ac ruby 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 acute Cancer of right kidney acute Drug rash acute Encounter for immunotherapy acute 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 History of primary malignant neoplasm of left kidney chronic 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 acute Cancer of right kidney acute Drug rash acute 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 History of primary malignant neoplasm of left kidney chronic 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 acute Cancer of right kidney acute Encounter for immunotherapy acute 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 History of primary malignant neoplasm of left kidney chronic 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 acute Cancer of right kidney acute Encounter for immunotherapy acute 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 History of primary malignant neoplasm of left kidney chronic 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 acute Cancer of right kidney acute Drug rash acute 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 History of primary malignant neoplasm of left kidney chronic Essential (primary) hypertension chronic Nonrheumatic aortic (valve) stenosis with insufficiency chronic History of coronary artery stent placement July 172002 resolved 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 acute Cancer of right kidney acute Drug rash acute 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 Anemia chronic History of primary malignant neoplasm of left kidney [facility] Work Phone: Evaluation note* Diagnosis Onset Date Resolution Status 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 acute Cancer of right kidney acute 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 Anemia chronic Drug rash chronic History of primary malignant neoplasm of left kidney chronic Iron deficiency anemia due t o chronic blood loss chronic 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 acute Cancer of right kidney acute 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 Anemia chronic Drug rash chronic History of primary malignant neoplasm of left kidney chronic Iron deficiency anemia due t o chronic blood loss chronic 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 acute Cancer of right kidney acute Fever acute 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 Anemia chronic Drug rash chronic History of primary malignant neoplasm of left kidney chronic Iron deficiency anemia due t o chronic blood loss chronic Fatigue acute 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 acute Cancer of right kidney acute 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 Anemia chronic Drug rash chronic History of primary malignant neoplasm of left kidney chronic Iron deficiency anemia due t o chronic blood loss chronic Essential (primary) hypertension chronic 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 Nonrheumatic aortic (valve) stenosis with insufficiency chronic History of coronary artery stent placement July 172002 resolved 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 acute Cancer of right kidney acute Encounter for immunotherapy acute 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 Drug rash chronic History of primary malignant neoplasm of left kidney chronic Iron deficiency anemia due t o chronic blood loss chronic 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 acute Cancer of right kidney acute Encounter for immunotherapy acute Epistaxis acute 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 Drug rash chronic History of primary malignant neoplasm of left kidney chronic Iron deficiency anemia due t o chronic blood loss chronic 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 acute Cancer of right kidney acute 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 Anemia chronic Drug rash chronic History of primary malignant neoplasm of left kidney chronic Iron deficiency anemia due t o chronic blood loss chronic [facility] Work Phone: Evaluation note* Diagnosis Onset Date Resolution Status 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 acute Cancer of right kidney acute 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 Drug rash chronic History of primary malignant neoplasm of left kidney chronic Iron deficiency anemia due t o chronic blood loss chronic Anemia resolved 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 acute Cancer of right kidney acute Fever acute 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 Drug rash chronic History of primary malignant neoplasm of left kidney chronic Iron deficiency anemia due t o chronic blood loss chronic Anemia resolved Fatigue acute 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 acute Cancer of right kidney acute 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 Drug rash chronic History of primary malignant neoplasm of left kidney chronic Iron deficiency anemia due t o chronic blood loss chronic Anemia resolved Essential (primary) hypertension chronic 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 Nonrheumatic aortic (valve) stenosis with insufficiency chronic History of coronary artery stent placement July 172002 resolved 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 acute Cancer of right kidney acute Encounter for immunotherapy acute 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 Drug rash chronic History of primary malignant neoplasm of left kidney chronic Iron deficiency anemia due t o chronic blood loss chronic 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 acute Cancer of right kidney acute Encounter for immunotherapy acute Epistaxis acute 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 Drug rash chronic History of primary malignant neoplasm of left kidney chronic Iron deficiency anemia due t o chronic blood loss chronic 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 acute Cancer of right kidney acute 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 Drug rash chronic History of primary malignant neoplasm of left kidney chronic Iron deficiency anemia due t o chronic blood loss chronic Anemia resolved 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 acute Cancer of right kidney acute 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 Drug rash chronic History of primary malignant neoplasm of left kidney chronic 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 acute Cancer of right kidney acute Encounter for immunotherapy acute Frequent headaches acute 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 Drug rash chronic 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 metastasis acute [facility] Work Phone: Evaluation note* Diagnosis Onset Date Resolution Status 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 acute Cancer of right kidney acute 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 Drug rash chronic History of primary malignant neoplasm of left kidney chronic Iron deficiency anemia due t o chronic blood loss chronic Anemia resolved Essential (primary) hypertension chronic 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 Nonrheumatic aortic (valve) stenosis with insufficiency chronic History of coronary artery stent placement July 172002 resolved 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 acute Cancer of right kidney acute Encounter for immunotherapy acute 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 Drug rash chronic History of primary malignant neoplasm of left kidney chronic Iron deficiency anemia due t o chronic blood loss chronic 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 acute Cancer of right kidney acute Encounter for immunotherapy acute Epistaxis acute 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 Drug rash chronic History of primary malignant neoplasm of left kidney chronic Iron deficiency anemia due t o chronic blood loss chronic 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 acute Cancer of right kidney acute 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 Drug rash chronic History of primary malignant neoplasm of left kidney chronic Iron deficiency anemia due t o chronic blood loss chronic Anemia resolved 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 acute Cancer of right kidney acute 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 Drug rash chronic History of primary malignant neoplasm of left kidney chronic 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 acute Cancer of right kidney acute Encounter for immunotherapy acute Frequent headaches acute 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 Drug rash chronic 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 metastasis acute Brain metastasis acute 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 acute Cancer of right kidney acute Encounter for immunotherapy acute 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 metastasis acute 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 acute Cancer of right kidney acute 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 Sinus congestion acute History of primary malignant neoplasm of left kidney chronic 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 acute History of lobectomy of lung acute Hypoxia acute Pneumonia acute History of primary malignant neoplasm of left kidney chronic [facility] Work Phone: Evaluation note* Diagnosis Onset Date Resolution Status Cancer of right kidney acute 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 Drug rash chronic Iron deficiency anemia due to chronic blood loss chronic Anemia resolved Cancer of right kidney acute 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 Drug rash chronic Cancer of right kidney acute Encounter for immunotherapy acute Frequent headaches acute 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 Drug rash chronic Brain metastasis acute Brain metastasis acute Cancer of right kidney acute Encounter for immunotherapy acute 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 metastasis acute Cancer of right kidney acute 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 Sinus congestion acute Hypoxia resolved Nicotine dependence, cigarettes, in remission acute SOB (shortness of breath) [place] Cancer of right kidney acute 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 Drug rash chronic Cancer of right kidney acute Encounter for immunotherapy acute 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 [facility] Work Phone: Evaluation note* Diagnosis Onset Date Resolution Status Cancer of right kidney chron ic Drug rash chronic Iron deficiency anemia due to chronic blood loss chronic 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 Anemia resolved Cancer of right kidney chron ic Drug rash chronic 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 Encounter for immunotherapy acute Frequent headaches acute Cancer of right kidney chron ic Drug rash chronic 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 acute Brain metastasis acute Encounter for immunotherapy acute Cancer of right kidney chron ic 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 acute Sinus congestion acute Cancer of right kidney chron ic 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 Hypoxia resolved Nicotine dependence, cigarettes, in remission acute SOB (shortness of breath) [place] Brain metastasis chronic Cancer of right kidney chron ic Drug rash chronic 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 Encounter for immunotherapy acute Brain metastasis chronic Cancer of right kidney chron ic 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 Nicotine dependence, cigarettes, in remission acute COPD (chronic obstructive pulmonary disease) chronic Brain metastasis chronic Cancer of right kidney chron ic Drug rash chronic 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 [facility] Work Phone: Evaluation note* Diagnosis Onset Date Resolution Status Cancer of right kidney chron ic Drug rash chronic 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 Encounter for immunotherapy acute Frequent headaches acute Cancer of right kidney chron ic Drug rash chronic 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 acute Brain metastasis acute Encounter for immunotherapy acute Cancer of right kidney chron ic 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 acute Sinus congestion acute Cancer of right kidney chron ic 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 Hypoxia resolved Nicotine dependence, cigarettes, in remission acute SOB (shortness of breath) [place] Brain metastasis chronic Cancer of right kidney chron ic Drug rash chronic 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 acute Sinus congestion acute Cancer of right kidney chron ic 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 Hypoxia resolved Nicotine dependence, cigarettes, in remission acute SOB (shortness of breath) [place] Brain metastasis chronic Cancer of right kidney chron ic Drug rash chronic 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 Encounter for immunotherapy acute Brain metastasis chronic Cancer of right kidney chron ic 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 Nicotine dependence, cigarettes, in remission acute COPD (chronic obstructive pulmonary disease) chronic Brain metastasis chronic Cancer of right kidney chron ic Drug rash chronic 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 Essential (primary) hypertension chronic Hyperlipidemia chronic 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 Nonrheumatic aortic (valve) stenosis with insufficiency chronic History of coronary artery stent placement July 172002 resolved Brain metastasis chronic [facility] Work Phone: Evaluation note* Diagnosis Onset Date Resolution Status 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 chronic Hypoxia resolved Nicotine dependence, cigarettes, in remission acute SOB (shortness of breath) [place] 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 chronic Brain metastasis chronic 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 chronic Cancer of right kidney chron ic Drug rash chronic 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 Encounter for immunotherapy acute Brain metastasis chronic Cancer of right kidney chron ic 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 Nicotine dependence, cigarettes, in remission acute 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 chronic COPD (chronic obstructive pulmonary disease) chronic Brain metastasis chronic 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 chronic Cancer of right kidney chron ic Drug rash chronic 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 Essential (primary) hypertension chronic Hyperlipidemia chronic 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 Nonrheumatic aortic (valve) stenosis with insufficiency chronic History of coronary artery stent placement July 172002 resolved Brain metastasis chronic Brain metastasis chronic 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 chronic Cancer of right kidney chron ic Drug rash chronic 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 chronic Cancer of right kidney chron ic Drug rash chronic Iron deficiency anemia due t o chronic blood loss chronic 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 chronic Cancer of right kidney chron ic Iron deficiency anemia due t o chronic blood loss chronic 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 chronic Cancer of right kidney chron ic Drug rash chronic Iron deficiency anemia due t o chronic blood loss chronic 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 [facility] Work Phone: Evaluation note* Diagnosis Onset Date Resolution Status Nicotine dependence, cigarettes, in remission acute 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 chronic COPD (chronic obstructive pulmonary disease) chronic Brain metastasis chronic 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 chronic Cancer of right kidney chron ic Drug rash chronic 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 Essential (primary) hypertension chronic Hyperlipidemia chronic 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 Nonrheumatic aortic (valve) stenosis with insufficiency chronic History of coronary artery stent placement July 172002 resolved Brain metastasis chronic Brain metastasis chronic 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 chronic Cancer of right kidney chron ic Drug rash chronic 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 chronic Cancer of right kidney chron ic Drug rash chronic Iron deficiency anemia due t o chronic blood loss chronic 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 chronic Cancer of right kidney chron ic Iron deficiency anemia due t o chronic blood loss chronic 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 chronic Cancer of right kidney chron ic Drug rash chronic Iron deficiency anemia due t o chronic blood loss chronic 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 SOB (shortness of breath) [place] Brain metastasis chronic 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 chronic Cancer of right kidney chron ic Drug rash chronic Iron deficiency anemia due t o chronic blood loss chronic 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 chronic 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 chronic Cancer of right kidney chron ic Drug rash chronic Iron deficiency anemia due t o chronic blood loss chronic 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 Hyperglycemia acute Hypoxemia acute Pneumonia acute Pulmonary emboli acute SOB (shortness of breath) [place] [facility] Work Phone: Evaluation note* Diagnosis Onset Date Resolution Status Brain metastasis chronic 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 chronic Cancer of right kidney chron ic Drug rash chronic 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 Essential (primary) hypertension chronic Hyperlipidemia chronic 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 Nonrheumatic aortic (valve) stenosis with insufficiency chronic History of coronary artery stent placement July 172002 resolved Brain metastasis chronic Brain metastasis chronic 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 chronic Cancer of right kidney chron ic Drug rash chronic 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 chronic Cancer of right kidney chron ic Drug rash chronic Iron deficiency anemia due t o chronic blood loss chronic 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 chronic Cancer of right kidney chron ic Iron deficiency anemia due t o chronic blood loss chronic 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 chronic Cancer of right kidney chron ic Drug rash chronic Iron deficiency anemia due t o chronic blood loss chronic 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 SOB (shortness of breath) ac [place] Brain metastasis chronic 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 chronic Cancer of right kidney chron ic Drug rash chronic Iron deficiency anemia due t o chronic blood loss chronic 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 chronic 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 chronic Cancer of right kidney chron ic Drug rash chronic Iron deficiency anemia due t o chronic blood loss chronic 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 Anemia acute Diabetes mellitus, type 2 ac [place] Duodenal ulcer acute GI bleed acute Hyperglycemia acute Hypoxemia acute Pneumonia acute Pneumonitis acute Pulmonary emboli acute SOB (shortness of breath) ac [place] COPD (chronic obstructive pulmonary disease) chronic 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 [facility] Work Phone: Evaluation note* Diagnosis PRES (posterior reversible encephalopathy syndrome)- [facility] Diagnosis 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 Diagnosis 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- [facility] Diagnosis 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- Primary [facility] Diagnosis Onset Date Resolution Status Brain metastasis chronic 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 chronic Cancer of right kidney chron ic History of primary malignant neoplasm of left kidney chronic Iron deficiency anemia due to chronic blood loss chronic 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 chronic Cancer of right kidney chron ic Drug rash chronic History of primary malignant neoplasm of left kidney chronic Iron deficiency anemia due to chronic blood loss chronic 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 SOB (shortness of breath) re solved Brain metastasis chronic 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 chronic Cancer of right kidney chron ic Drug rash chronic Iron deficiency anemia due to chronic blood loss chronic 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 chronic 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 chronic Cancer of right kidney chron ic Drug rash chronic History of primary malignant neoplasm of left kidney chronic Iron deficiency anemia due to chronic blood loss chronic 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 Anemia acute 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 GI bleed resolved Hypoxemia resolved Pneumonitis resolved SOB (shortness of breath) re solved Brain metastasis chronic 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 chronic Cancer of right kidney chron ic Drug rash chronic History of primary malignant neoplasm of left kidney chronic Iron deficiency anemia due to chronic blood loss chronic 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 chronic Brain metastasis chronic 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 chronic Cancer of right kidney chron ic Drug rash chronic History of primary malignant neoplasm of left kidney chronic Iron deficiency anemia due to chronic blood loss chronic 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 chronic Cancer of right kidney chron ic Drug rash chronic History of primary malignant neoplasm of left kidney chronic Iron deficiency anemia due to chronic blood loss chronic 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 [facility] Work Phone: Evaluation note* Diagnosis Metastatic cancer to brain (HCC)- Primary Secondary malignant neoplasm [facility] Onset Date Resolution Status Brain metastasis chronic 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 chronic Cancer of right kidney chron ic Drug rash chronic History of primary malignant neoplasm of left kidney chronic Iron deficiency anemia due t o chronic blood loss chronic 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 chronic Brain metastasis chronic 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 chronic Cancer of right kidney chron ic Drug rash chronic History of primary malignant neoplasm of left kidney chronic Iron deficiency anemia due t o chronic blood loss chronic 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 chronic Cancer of right kidney chron ic Drug rash chronic History of primary malignant neoplasm of left kidney chronic Iron deficiency anemia due t o chronic blood loss chronic 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 chronic Cancer of right kidney chron ic Drug rash chronic History of primary malignant neoplasm of left kidney chronic Iron deficiency anemia due t o chronic blood loss chronic 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 chronic Cancer of right kidney chron ic Drug rash chronic History of primary malignant neoplasm of left kidney chronic Iron deficiency anemia due t o chronic blood loss chronic 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 chronic Cancer of right kidney chron ic History of primary malignant neoplasm of left kidney chronic Iron deficiency anemia due t o chronic blood loss chronic 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 Essential (primary) hypertension chronic Hyperlipidemia chronic 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 Nonrheumatic aortic (valve) stenosis with insufficiency chronic History of coronary artery stent placement July 172002 resolved Brain metastasis chronic 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 chronic Cancer of right kidney chron ic Drug rash chronic History of primary malignant neoplasm of left kidney chronic Iron deficiency anemia due t o chronic blood loss chronic 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 Nicotine dependence, cigarettes, in remission acute 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 chronic [facility] Work Phone: Evaluation note* Diagnosis Onset Date Resolution Status Brain metastasis chronic 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 chronic Cancer of right kidney chron ic Drug rash chronic History of primary malignant neoplasm of left kidney chronic Iron deficiency anemia due t o chronic blood loss chronic 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 chronic Cancer of right kidney chron ic Drug rash chronic History of primary malignant neoplasm of left kidney chronic Iron deficiency anemia due t o chronic blood loss chronic 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 chronic Cancer of right kidney chron ic Drug rash chronic History of primary malignant neoplasm of left kidney chronic Iron deficiency anemia due t o chronic blood loss chronic 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 chronic Cancer of right kidney chron ic History of primary malignant neoplasm of left kidney chronic Iron deficiency anemia due t o chronic blood loss chronic 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 Essential (primary) hypertension chronic Hyperlipidemia chronic 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 Nonrheumatic aortic (valve) stenosis with insufficiency chronic History of coronary artery stent placement July 172002 resolved Brain metastasis chronic 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 chronic Cancer of right kidney chron ic Drug rash chronic History of primary malignant neoplasm of left kidney chronic Iron deficiency anemia due t o chronic blood loss chronic 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 Nicotine dependence, cigarettes, in remission acute 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 chronic Brain metastasis chronic 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 chronic Cancer of right kidney chron ic Drug rash chronic History of primary malignant neoplasm of left kidney chronic Iron deficiency anemia due t o chronic blood loss chronic 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 chronic Cancer of right kidney chron ic Drug rash chronic History of primary malignant neoplasm of left kidney chronic Iron deficiency anemia due t o chronic blood loss chronic 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 [facility] Work Phone: Evaluation note* Diagnosis 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 [facility] Diagnosis Onset Date Resolution Status Brain metastasis chronic 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 chronic Cancer of right kidney chron ic Drug rash chronic History of primary malignant neoplasm of left kidney chronic Iron deficiency anemia due t o chronic blood loss chronic 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 chronic Cancer of right kidney chron ic Drug rash chronic History of primary malignant neoplasm of left kidney chronic Iron deficiency anemia due t o chronic blood loss chronic 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 chronic Cancer of right kidney chron ic History of primary malignant neoplasm of left kidney chronic Iron deficiency anemia due t o chronic blood loss chronic 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 Essential (primary) hypertension chronic Hyperlipidemia chronic 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 Nonrheumatic aortic (valve) stenosis with insufficiency chronic History of coronary artery stent placement July 172002 resolved Brain metastasis chronic 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 chronic Cancer of right kidney chron ic Drug rash chronic History of primary malignant neoplasm of left kidney chronic Iron deficiency anemia due t o chronic blood loss chronic 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 Nicotine dependence, cigarettes, in remission acute 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 chronic Brain metastasis chronic 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 chronic Cancer of right kidney chron ic Drug rash chronic History of primary malignant neoplasm of left kidney chronic Iron deficiency anemia due t o chronic blood loss chronic 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 chronic Cancer of right kidney chron ic Drug rash chronic History of primary malignant neoplasm of left kidney chronic Iron deficiency anemia due t o chronic blood loss chronic 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 [facility] Work Phone: Evaluation note* Diagnosis Metastatic cancer to brain (HCC) Secondary malignant neoplasm of brain and spinal cord [facility] Diagnosis Metastatic cancer to brain (HCC)- Primary Secondary malignant neoplasm of brain and spinal cord [facility] Diagnosis Epistaxis- Primary Skin tear of right upper arm without complication, initial encounter Upper respiratory tract infection, unspecified type [facility] Diagnosis Essential hypertension- Primary Unspecified essential hypertension 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) Obesity, morbid (HCC) Morbid obesity Seizure (HCC) Other convulsions Hypercholesterolemia Pure hypercholesterolemia Coronary artery disease involving [place] coronary artery of [place] heart without angina pectoris History of colon polyps Right carotid bruit History of pulmonary embolism Personal history of venous thrombosis and embolism Prostate cancer screening Special screening for malignant neoplasm of prostate Chronic gastritis without bleeding, unspecified gastritis type documented [facility]* Diagnosis Colon cancer screening- Primary Special screening for malignant neoplasms, colon History of colon polyps documented [facility]* Diagnosis Onset Date Resolution Status Brain metastasis chronic 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 chronic Cancer of right kidney chron ic Drug rash chronic History of primary malignant neoplasm of left kidney chronic Iron deficiency anemia due t o chronic blood loss chronic 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 chronic Cancer of right kidney chron ic Drug rash chronic History of primary malignant neoplasm of left kidney chronic Iron deficiency anemia due t o chronic blood loss chronic 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 chronic Cancer of right kidney chron ic 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 chronic Cancer of right kidney chron ic 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 COPD (chronic obstructive pulmonary disease) chronic 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 chronic Cancer of right kidney chron ic Drug rash chronic History of primary malignant neoplasm of left kidney chronic Iron deficiency anemia due t o chronic blood loss chronic 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 Numbness in right leg acute RUE numbness acute Brain metastasis chronic 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 chronic Cancer of right kidney chron ic Drug rash chronic History of primary malignant neoplasm of left kidney chronic Iron deficiency anemia due t o chronic blood loss chronic 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 Essential (primary) hypertension chronic Hyperlipidemia chronic 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 Nonrheumatic aortic (valve) stenosis with insufficiency chronic History of coronary artery stent placement July 172002 resolved [facility] Work Phone: Evaluation note* Diagnosis Onset Date Resolution Status Brain metastasis chronic 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 chronic Cancer of right kidney chron ic Drug rash chronic History of primary malignant neoplasm of left kidney chronic Iron deficiency anemia due t o chronic blood loss chronic 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 chronic Cancer of right kidney chron ic 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 chronic Cancer of right kidney chron ic 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 COPD (chronic obstructive pulmonary disease) chronic 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 chronic Cancer of right kidney chron ic Drug rash chronic History of primary malignant neoplasm of left kidney chronic Iron deficiency anemia due t o chronic blood loss chronic 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 Numbness in right leg acute RUE numbness acute Brain metastasis chronic 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 chronic Cancer of right kidney chron ic Drug rash chronic History of primary malignant neoplasm of left kidney chronic Iron deficiency anemia due t o chronic blood loss chronic 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 Essential (primary) hypertension chronic Hyperlipidemia chronic 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 Nonrheumatic aortic (valve) stenosis with insufficiency chronic History of coronary artery stent placement July 172002 resolved Cervical myelopathy acute [facility] Work Phone: Evaluation note* Diagnosis Metastatic cancer to brain (HCC) Secondary malignant neoplasm of brain and spinal cord [facility] Diagnosis Metastatic cancer to brain (HCC)- Primary Secondary malignant neoplasm of brain and spinal cord [facility] Diagnosis Onset Date Resolution Status Brain metastasis chronic 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 chronic Cancer of right kidney chron ic 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 COPD (chronic obstructive pulmonary disease) chronic 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 chronic Cancer of right kidney chron ic Drug rash chronic History of primary malignant neoplasm of left kidney chronic Iron deficiency anemia due t o chronic blood loss chronic 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 Numbness in right leg acute RUE numbness acute Brain metastasis chronic 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 chronic Cancer of right kidney chron ic Drug rash chronic History of primary malignant neoplasm of left kidney chronic Iron deficiency anemia due t o chronic blood loss chronic 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 Essential (primary) hypertension chronic Hyperlipidemia chronic 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 Nonrheumatic aortic (valve) stenosis with insufficiency chronic History of coronary artery stent placement July 172002 resolved Cervical myelopathy acute Brain metastasis chronic 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 chronic Cancer of right kidney chron ic 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 chronic Cancer of right kidney chron ic 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 Cervical myelopathy acute Cervical myelopathy acute Brain metastasis chronic 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 chronic Cancer of right kidney chron ic Drug rash chronic History of primary malignant neoplasm of left kidney chronic Iron deficiency anemia due t o chronic blood loss chronic 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 [facility] Work Phone: Evaluation note* Diagnosis Onset Date Resolution Status Brain metastasis chronic 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 chronic Cancer of right kidney chron ic 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 COPD (chronic obstructive pulmonary disease) chronic 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 chronic Cancer of right kidney chron ic Drug rash chronic History of primary malignant neoplasm of left kidney chronic Iron deficiency anemia due t o chronic blood loss chronic 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 Numbness in right leg acute RUE numbness acute Brain metastasis chronic 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 chronic Cancer of right kidney chron ic Drug rash chronic History of primary malignant neoplasm of left kidney chronic Iron deficiency anemia due t o chronic blood loss chronic 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 Essential (primary) hypertension chronic Hyperlipidemia chronic 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 Nonrheumatic aortic (valve) stenosis with insufficiency chronic History of coronary artery stent placement July 172002 resolved Cervical myelopathy acute Brain metastasis chronic 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 chronic Cancer of right kidney chron ic 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 chronic Cancer of right kidney chron ic 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 Cervical myelopathy acute Cervical myelopathy acute Brain metastasis chronic Cancer of lower lobe of right lung chronic Cancer of right kidney chron ic Drug rash chronic History of primary malignant neoplasm of left kidney chronic Iron deficiency anemia due t o chronic blood loss chronic 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 Cervical myelopathy acute Essential hypertension acute S/P cervical spinal fusion a [facility] Work Phone: Evaluation note* Diagnosis Essential hypertension- Primary Unspecified essential hypertension 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 Actinic keratosis Coronary artery disease involving [place] coronary artery of [place] heart without angina pectoris Prostate cancer screening Special screening for malignant neoplasm of prostate 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) History of pulmonary embolus (PE) 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 Encounter for management of implanted device- Primary Fitting and adjustment of unspecified device [facility] Diagnosis Metastatic cancer to brain (HCC) Secondary malignant neoplasm of brain and spinal cord [facility] Diagnosis Metastatic cancer to brain (HCC)- Primary 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 [facility]* Diagnosis Skin infection- Primary Unspecified local infection of skin and subcutaneous tissue Coronary artery disease involving [place] coronary artery of [place] heart without angina pectoris 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) Inclusion cyst Sebaceous cyst [facility]* Diagnosis Essential hypertension- Primary Unspecified essential hypertension Adenocarcinoma of right lung (HCC) Hypercholesterolemia Pure hypercholesterolemia Seizure (HCC) Other convulsions History of pulmonary embolism Personal history of venous thrombosis and embolism Ex-smoker Personal history of tobacco use, presenting hazards to health Hypochromic microcytic anemia History of colon polyps Coronary artery disease involving [place] coronary artery of [place] heart without angina pectoris [facility] Diagnosis Chronic obstructive pulmonary disease with acute exacerbation (HCC)- Primary [facility]* Diagnosis Essential hypertension- Primary Unspecified essential hypertension Chronic obstructive pulmonary disease with acute exacerbation (HCC) Aortic stenosis, mild Bruit of right carotid artery Skin lesion of face Unspecified disorder of skin and subcutaneous tissue Hypercholesterolemia Pure hypercholesterolemia Adenosquamous carcinoma of lung, left (HCC) Coronary artery disease involving [place] coronary artery of [place] heart without angina pectoris [facility] Diagnosis Skin lesion of face- Primary Unspecified disorder of skin and subcutaneous tissue Basal cell carcinoma (BCC) of right cheek Bruit of right carotid artery [facility]* Diagnosis Basal cell carcinoma (BCC) of right cheek Bruit of right carotid artery [facility]* Diagnosis 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- Primary [facility] Diagnosis 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 [facility] Diagnosis Secondary malignant neoplasm of brain (HCC)- Primary Secondary malignant neoplasm of brain and spinal cord [facility] Diagnosis Acute non-recurrent frontal sinusitis- Primary Adverse effect of drug, subsequent encounter Chronic bronchitis, unspecified chronic bronchitis type (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) [facility] Diagnosis Nausea- Primary Nausea alone Chronic bronchitis, unspecified chronic bronchitis type (HCC) Hypochromic microcytic anemia History of bleeding peptic ulcer 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) History of pulmonary embolism Personal history of venous thrombosis and embolism [facility] Diagnosis Chronic bronchitis, unspecified chronic bronchitis type (HCC)- Primary Adenosquamous carcinoma of lung, left (HCC) Chemotherapy induced diarrhea [facility]* Diagnosis Encounter for subsequent annual wellness visit (AWV) in Medicare patient- Primary Adenosquamous carcinoma of lung, left (HCC) Chronic bronchitis, unspecified chronic bronchitis type (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) History of pulmonary embolism Personal history of venous thrombosis and embolism Hypercholesterolemia Pure hypercholesterolemia Coronary artery disease involving [place] coronary artery of [place] heart without angina pectoris Essential hypertension Unspecified essential hypertension History of renal carcinoma Cervical radiculopathy due to degenerative joint disease of spine Celiac disease Routine general medical examination at health care facility Routine general medical examination at a health care facility [facility]* Diagnosis 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- Primary [facility] Diagnosis 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 [facility] Diagnosis Secondary malignant neoplasm of brain (HCC)- Primary Secondary malignant neoplasm of brain and spinal cord [facility] Diagnosis Sepsis, due to unspecified organism, unspecified whether acute organ dysfunction present (HCC)- Primary Cellulitis of right upper extremity Cat bite, initial encounter Immunocompromised state (HCC) Unspecified immunity deficiency Malignant neoplasm of kidney, unspecified laterality (HCC) [facility]* Diagnosis Chronic bronchitis, unspecified chronic bronchitis type (HCC)- Primary Aortic stenosis, mild Essential hypertension Unspecified essential hypertension Celiac disease Hypercholesterolemia Pure hypercholesterolemia Elevated PSA Elevated prostate specific antigen (PSA) Screening for prostate cancer Special screening for malignant neoplasm of prostate Screening for diabetes mellitus Renal cell carcinoma of right kidney (HCC[facility] Chronic bronchitis, unspecified chronic bronchitis type (HCC)- Primary Aortic stenosis, mild Essential hypertension Unspecified essential hypertension Celiac disease Hypercholesterolemia Pure hypercholesterolemia Elevated PSA Elevated prostate specific antigen (PSA) Screening for prostate cancer Special screening for malignant neoplasm of prostate Screening for diabetes mellitus Renal cell carcinoma of right kidney (HCC) Essential hypertension- Primary Unspecified essential hypertension [facility] Diagnosis Chronic bronchitis, unspecified chronic bronchitis type (HCC)- Primary Aortic stenosis, mild Essential hypertension Unspecified essential hypertension Celiac disease Hypercholesterolemia Pure hypercholesterolemia Elevated PSA Elevated prostate specific antigen (PSA) Screening for prostate cancer Special screening for malignant neoplasm of prostate Screening for diabetes mellitus Renal cell carcinoma of right kidney (HCC) Essential hypertension- Primary Unspecified essential hypertension [facility] instructions[facility] Orders* Neurosurgery Location: None Selected * Radiation Oncology Location: None Selected [facility] Work Phone: Hospital Discharge instructions No data available for this section [facility] Progress note Author Angela Rodriguez [facility] Note Date/Time April 12, 2025 1:58p m [facility] [address] [address] OFFICE VISIT Date of Service: 04/12/25 1327 MR#: [id number] Acct: [id number] Name: KENN ARSHAD Rep #: [id number] : 1955 From: Angela stapleton MD Age/Sex: 69/M Location: [facility] Status: Signed HPI Subjective Date of Service 04/12/25 Chief Complaint Metastatic kidney cancer on treatment History of Present Illness Patient is a 69-year-old male smoker till February 2021 who in January 28, 2021 underwent a lung cancer screening CT scan: Showed a spiculated partially cavitary mass within the right lower lobe measuring up to 5.3 cm in maximum diameter with right hilar lymphadenopathy. February 14, 2021 PET/CT showed intensely avid right lower lobe mass consistent withmalignancy with FDG accumulation within right hilar lymph node consistent with ramon metastases and no evidence of distant metastatic disease. Small noncalcified nodules at the periphery of the right lung base with no appreciableFDG accumulation were noted. February 20, 2021 right lower lobe lung guided biopsy showed moderately to poorly differentiated adenocarcinoma of lung primary. March 08, 2021 brain MRI showed no abnormal intracranial enhancement to suggest intracranial metastases. March 13, 2021 patient underwent right video-assisted thoracoscopy converted to right muscle-sparing thoracotomy with right lower lobe lobectomy, right upper lobe wedge, right middle lobe wedge and mediastinal lymph node dissection by : Pathology: A. Right upper lobe wedge resection negative for malignancy. B. Right middle lobe wedge resection negative for malignancy. C. Lymph node right pulmonary ligament negative for metastatic carcinoma. D. Lymph node 11 R right middle negative for malignancy. E. Right lower lobe lobectomy multifocal adenocarcinoma grade 3. Incidentally found multiple metastatic nodules of clear-cell renal cell carcinoma and 1 of 5 peribronchial lymph nodes positive for metastatic carcinoma. F. Lymph node 11 R anterior 1 lymph node positive for metastatic carcinoma. G. Lymph node 11 R posterior negative for metastatic carcinoma. H. Lymph node level 7 1 lymph node negative for metastatic carcinoma I. Lymph node level 7 1 lymph node negative for metastatic carcinoma. J. Lymph node level 4R lower paratracheal negative for metastatic carcinoma K. Lymph node right upper paratracheal negative for metastatic carcinoma. Pathologic staging T3N1. EGFR mutation negative. Patient's past medical history is notable for being status post left total nephrectomy in 2005 for kidney cancer. He has been a smoker most of his adult life quit in February 2021 and consumes an average 2 beers per day. April 18, 2021 renal ultrasound: IMPRESSION: Status post left nephrectomy. 2. Hypoechoic solid nodules seen in the right kidney as described. Neoplastic process should be ruled out. Correlation with a CT scan is recommended for further evaluation. 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 May 02, 2021 CT abdomen and pelvis: IMPRESSION: 1. Small right pleural effusion. 2. Solid enhancing masses of the right kidney and right adrenal gland worrisome for metastatic renal cell carcinoma. No retroperitoneal lymphadenopathy. 3. Large left medially in hernia containing a segment of the descending colon and small bowel without bowel obstruction. September 25, 2021 CT chest abdomen and pelvis: IMPRESSION: Status post left nephrectomy. Interval improvement in the previously seen right adrenal mass. The remainder of the examination is unchanged. June 13, 2021 CT abdomen and pelvis: IMPRESSION: 1. Reidentification of large lobular mass of the right adrenal gland measuring at least 4 cm, suspicious for metastatic disease. Without contrast this is poorly evaluated but on the prior study with contrast a heterogeneous mass was visualized. 2. Reidentification of a rounded partially exophytic mass in the medial aspect of the midpole of the right kidney measuring at least 2.56 cm also demonstrated enhancement on the prior study which is suspicious for malignancy. September 25, 2021 CT chest abdomen and pelvis: IMPRESSION: Status post left nephrectomy. Interval improvement in the previously seen right adrenal mass. The remainder of the examination is unchanged. December 03, 2021 CT abdomen and pelvis, for an episode of acute abdominal pain: IMPRESSION: No acute findings. Suspect slight interval enlargement of the lower pole mass in the right kidney compatible with renal cell carcinoma, not well evaluated without IV contrast. Left flank hernia containing large and small bowel loops, not fully visible. No evidence of obstruction. March 04, 2022 CT chest abdomen and pelvis: IMPRESSION: 1. 3.7 x 3.2 x 3.4 cm mass concerning for neoplasm in the mid to lower right kidney is grossly stable from 12/03/2021. 2. No metastatic disease in the remainder of the exam. May 27, 2022 CT chest abdomen and pelvis: IMPRESSION: Stable examination. Exophytic soft tissue mass in the posterior medial aspect of the mid to lower aspect of the right kidney. Stable hyperplasia of the right adrenal gland. September 08, 2022 CT chest abdomen and pelvis: IMPRESSION: Stable CT scan of the thorax. Slight enlargement of the previously seen lobular solid mass in the medial mid lower portions of the right kidney. October 14, 2022 brain MRI: IMPRESSION: 1.6 cm enhancing mass in the left posterior parietal lobe containing old hemorrhage concerning for hemorrhagic metastasis.? Large amount of surrounding edema with partial effacement of the left lateral ventricle. Paranasal sinus inflammatory disease. Chronic involutional white matter changes. December 16, 2022 brain MRI: IMPRESSION: 1.? No MRI evidence of acute or subacute ischemic infarct or new brain metastatic disease.? 2.? Mild increase in size of enhancing metastatic mass in the left posterior parietal lobe measuring 1.2 x 1.6 cm, previously 1.4 x 1.2 cm. No obvious significant change of the vasogenic edema surrounding the enhancing metastatic mass in the left posterior parietal lobe.? 3.? Mild improvement of mucosal edema in the ethmoid sinuses. December 29, 2022 CT chest abdomen and pelvis: FINDINGS: CHEST Lungs are mildly hyperexpanded, with chronic interstitial changes and nonspecific pleural thickening in both hemithoraces. There is no suspicious noncalcified mass or nodule, organized infiltrate or effusion. Thyroid gland is unremarkable. Normal heart and pericardium.? There are calcifications of the coronary arteries. No suspicious axillary, mediastinal, or perihilar lymph nodes. . Normal unenhanced pulmonary arteries. ? Peripheral calcifications in the thoracic aorta without aneurysm. Bony structures show mild degenerative changes. ABDOMEN Liver is unremarkable aside from a simple cyst in the left lobe.? Normal gallbladder and extrahepatic biliary system.? Normal spleen.? Normal pancreas. Normal bilateral adrenal glands. There has been a previous left nephrectomy. No suspicious soft tissue mass or adenopathy in the left nephrectomy bed. Right kidney shows a stable concerning 3.95 x 3.71 cm mass in the lower pole. 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 Normal visualized stomach.? Normal small intestine.? Normal colon.? The appendix is visualized and appears normal. Appendix seen on coronal recon images 50 through 60 There is diffuse atherosclerotic calcification of the abdominal aorta with elongation and tortuosity, but without a demonstrated aneurysm.? Normal inferior vena cava.? Scattered subcentimeter in short axis dimension unchanged mesenteric and retroperitoneal lymph nodes. Stable left-sided spigelian hernia. Bony structures show degenerative change PELVIS Normal urinary bladder. There is no pelvic fluid.? There is no pelvic lymphadenopathy or mass lesion. Normal visualized pelvic arteries. Fat-containing right inguinal hernia.? There are diffuse degenerative changes of the visualized lumbar spine, and pelvis. IMPRESSION: There is a persistent suspicious solid mass in the lower pole of the right kidney measuring 3.95 x 3.71 cm which is anything is slightly increased in size since the previous study from August. 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 Stable simple hepatic cyst, no specific follow-up needed.? Chronic interstitial changes in both lung post without a superimposed acute pulmonary process? Degenerative bony changes? Stable-appearing left spigelian hernia January 21, 2023 brain MRI: IMPRESSION: Persistent partially hemorrhagic metastasis in the left parietal lobe with vasogenic edema which is relatively stable in size since prior study. No new lesions identified March 13, 2023 chest abdomen and pelvis CT: IMPRESSION: 1.? Slightly larger right posterior mediastinal lymph node of uncertain significance.? 2.? Stable solid 4.2 cm right renal mass. March 16, 2023 brain MRI: IMPRESSION: 1.? There is moderate interval enlargement and doubling in size of the mass in the posterior medial aspect and middle one third region of the left parietal lobe at the periphery of the splenium of the corpus callosum -the primary concern is for progression of the malignancy, however post radiation necrosis and flaring can be considered if there is history of recent radiation treatment to this region. MR spectroscopy can also be acquired to help in differentiating the processes. Clinical consult with neurosurgery is recommended. The left parietal mass has a thick enhancing rim with central necrosis and now measures 3.10 x 2.28 cm compared to the previous measurement of 1.2 x 1.6 cm. 2.? The surrounding vasogenic edema has slightly increased and is extended to the parasagittal and posterior aspect of the superior segment of the occipital lobe and has slightly increased in the anterior to posterior dimension and superior and posterior aspect of the left parietal lobe when compared to the prior study compared images 18/ series 6 on the old study and 18/25 series 6 on the current study. 3.? There is also slightly more mass effect on the occipital horn of the left lateral ventricle compared to the prior study. Minimal midline shift of 1 to 2 mm is present. 4.? No hydrocephalus is seen. There is no transtentorial herniation. 5.? There are no visualized metastatic lesions in the remaining aspects of the cerebral hemispheres or in the posterior fossa April 16, 2023 MRI spectroscopy at [facility] Main campus: Impression: Spectroscopy and perfusion findings medial and dorsal aspects of the treated presumed left parietal metastasis compatible with viable tumor with more extensive surrounding radiation necrosis. May 02, 2023 CTA; emergency room visit because of shortness of breath to rule out PE IMPRESSION: No evidence of acute pulmonary embolism. Small chronic nonocclusive right lower lobar pulmonary embolism. New 3 mm spiculated right lower lobe nodule and left lower lobe pulmonary nodules measuring up to 8 mm, suspicious for metastases. Progression of mild mediastinal and hilar lymphadenopathy. Mild pneumonitis or atypical pneumonia with mosaic attenuation pattern and groundglass opacities with mild septal thickening most confluent in the left upper lobe inferiorly. Chronic scarring in the right lung with pleural thickening. Enhancing right renal mass. Left nephrectomy. These images were reviewed by myself and radiology colleague (courtesy second opinion with question biopsy) and new right lower lobe nodule was not verifiedand by no means would be amenable to biopsy at the size. June 28, 2023 CT chest abdomen and pelvis: IMPRESSION: Stable probable hepatic cyst. Relatively stable right renal masses as noted. Status post left nephrectomy. Mild peripheral interstitial thickening in the lungs. Mild mediastinal adenopathy. October 05, 2023 CT chest abdomen and pelvis: IMPRESSION: 1. Improved bilateral hazy groundglass opacities/infiltrates. 2. Right middle lobe pleural-based density likely due to scarring and postoperative changes unchanged. 3. No evidence of new metastatic disease. 4. Status post left nephrectomy. 5. Left lateral ventricle hernia containing bowel loops and colon without evidence of obstruction unchanged. 6. Bilateral inguinal hernias containing fat. 7. No focal acute inflammatory process. January 13, 2024 chest abdomen and pelvis CT: IMPRESSION: 1. Chronic changes in the lungs unchanged. 2. Stable 7 mm left lower lobe nodule. 3. Stable right paratracheal adenopathy unchanged 4. No evidence of new metastatic disease. 5. Status post left nephrectomy. 6. Stable solid mass in the right kidney likely malignant until proven otherwise. 7. Additional nonacute changes as described above. 8. Further follow-up exam is needed. April 27, 2024 chest abdomen and pelvis CT: IMPRESSION: Stable examination. August 09, 2024 CT chest abdomen and pelvis: IMPRESSION: 1. Solid right-sided renal nodule suggests renal cell carcinoma. This appears unchanged since previous CT. 2. Status post left-sided nephrectomy. 3. Left flank ventral hernia containing bowel. 4. Left basilar airspace disease and/or atelectasis. 5. Unchanged appearance to right middle lobe subpleural nodule. January 10, 2025 CT chest abdomen and pelvis: IMPRESSION: 1. No CT evidence of acute pulmonary embolism. 2. Stable right renal mass suggestive of renal cell carcinoma. Exophytic cyst and lipoma/angiomyolipoma are also noted in the right kidney. 3. Nodular densities in the right middle and right lower lobe which may represent atypical infection versus neoplastic/metastatic disease. 4. Hepatic steatosis and hepatomegaly 5. Mild intrahepatic biliary dilatation 6. Mild splenomegaly January 18, 2025 sigmoidoscopy: SIGMOID COLON, BIOPSY: - Focal active colitis with acute cryptitis and crypt abscess ? see note. - Note: The focal and limited nature of the inflammation, plus lack of apoptosisor crypt distortion/drop ou,t and without increased eosinophils, favors focal active colitis due to bowel prep artifact or medication injury (eg: NSAIDs) or resolving/mild infection over immunotherapy-induced colitis. March 21, 2025 CT chest abdomen and pelvis: IMPRESSION: New right pleural effusion with infiltration in both lungs worse on the right side as described. Status post left nephrectomy. Persistent masses in the right kidney. March 22, 2025 EGD: Impressions : - Non-severe reflux esophagitis with no bleeding. - Erythematous mucosa in the gastric body. - Duodenal mucosal changes seen, diagnostic of celiac disease. Biopsied. Pathology: MICROSCOPIC DIAGNOSIS A. Small bowel, duodenum, biopsy: - Marked villous blunting with acute inflammation and patchy mild increase of intraepithelial lymphocytes Trichrome stain highlights patchy mild thickening of the subepithelial collagen table. The consensus opinion is: Collagenous colitis pattern of injury - see comment. Comment: There is atrophy of villi with increased intraepithelial lymphocytes, scattered surface neutrophilic inflammation and increased subepithelial collagen. This is consistent with collagenous colitis pattern of injury which is a non-specific pattern of injury. The differential diagnosis includes celiac disease and medication-related injury. While these features can be seen with immunocheckpoint inhibitor enteritis, there would usually be more prominent acute inflammation and increased apoptosis. Correlation with clinical impression, medication history, and serologic studies is recommended Treatment summary and response: * 2005 left radical nephrectomy. * March 13, 2021 video-assisted thoracoscopy converted to right muscle-sparing thoracotomy with right lower lobe lobectomy, right upper lobe wedge, right middle lobe wedge and mediastinal lymph node dissection. * May 07, 2021 pembrolizumab plus axitinib for metastatic RCC. Axitinib discontinued May 2021 due to hypertensive crisis. * Keytruda single agent May 07 ?July 30, 2021 (5 cycles) [place] but held in August 2021 due to ELANA. Resumed November 26, 2021 with no recurrent. Held again January 2025 when he developed acute colitis. To resume March 13, 2025 * Stereotactic brain radiation at [facility] October 28, 2022 a single fraction with 10 MV photons. [facility] Medical History MRSA (methicillin resistant staph aureus) culture positive Acute infective gastroenteritis COPD exacerbation History of steroid therapy Low iron Seizures Shortness of breath on exertion History of pain when walking History of edema History of echocardiogram Cardiology follow-up encounter Cervical spinal cord injury Cervical stenosis of spine Numbness in right leg RUE numbness Diarrhea Hypokalemia Duodenal ulcer Anemia Diabetes mellitus, type 2 Hyperglycemia Hyponatremia Thrombocytopenia Pulmonary emboli COPD (chronic obstructive pulmonary disease) Imbalance Brain metastasis Pneumonia Sinus congestion Hx of radiation therapy Brain metastasis Frequent headaches Epistaxis Contact with or suspected exposure to other viral communicable disease Iron deficiency anemia due to chronic blood loss Encounter for immunotherapy Encounter for immunotherapy COVID-19 Nonrheumatic aortic (valve) stenosis with insufficiency Elevated troponin (05/15/21) Encephalopathy (05/15/21) Seizure (05/15/21) Metastatic renal cell carcinoma to lung Dyspnea Metastasis to adrenal gland Port-A-Cath in place Atherosclerotic heart disease of [place] coronary artery without angina pectoris Hyperlipidemia Wears glasses Wears dentures Gastric reflux Former smoker History of primary malignant neoplasm of left kidney Malignant neoplasm of kidney metastatic to lung Cancer of lower lobe of right lung Skin cancer Abnormal colonoscopy Essential (primary) hypertension COPD (chronic obstructive pulmonary disease) Adenocarcinoma of right lung Surgical History H/O cervical discectomy History of cataract surgery History of lobectomy of lung History of nephrectomy, left History of coronary angioplasty (01/05/04) History of coronary artery stent placement (07/17/03) Family History Sister Diabetes CAD (coronary artery disease) Mother CVA (cerebral vascular accident) CAD (coronary artery disease) Lung cancer Father CAD (coronary artery disease) Brother CAD (coronary artery disease) Social History household members: spouse Smoking Status: Former smoker Tobacco: How many years used: 40 second hand exposure: No alcohol intake: current alcohol intake frequency: a few times a month Alcohol type: beer substance use type: does not use seatbelt use: always do you feel safe at home: Yes ROS GENE Narrative Nausea and vomiting resolved, on a wean of prednisone schedule to be replaced with budesonide Constitutional Constitutional: Denies anorexia, fatigue, fever(s), headache(s), night sweats, weight gain or weight loss Eyes Eyes: Reports systems reviewed and no addt'l complaints, except as documented; Denies blurry vision ENT HEENT: Reports systems reviewed and no addt'l complaints, except as documented and loss taste/smell; Denies bleeding gums, epistaxis, headache(s) or mouth lesions Cardiovascular Cardiovascular: Reports systems reviewed and no addt'l complaints, except as documented; Denies chest pain with activity or edema Respiratory/Chest Respiratory/Chest: Reports systems reviewed and no addt'l complaints, except as documented and dyspnea on exertion; Denies cough, hemoptysis or wheezing Gastrointestinal Gastrointestinal: Reports systems reviewed and no addt'l complaints, except as documented; Denies abdominal pain, bloating, change in bowel habits, constipation, diarrhea, hematochezia, melena or nausea Genitourinary Genitourinary: Reports systems reviewed and no addt'l complaints, except as documented; Denies hematuria Musculoskeletal Musculoskeletal: Reports systems reviewed and no addt'l complaints, except as documented and arthralgias; Denies back pain or myalgias Integumentary Integumentary: Reports systems reviewed and no addt'l complaints, except as documented; Denies pruritus or rash Neurologic Neurologic: Reports systems reviewed and no addt'l complaints, except as documented; Denies abnormal speech, behavior changes, focal weakness, frequent falls, headache(s), memory loss, paresthesias or seizures Psychiatric Psychiatric: Reports systems reviewed and no addt'l complaints, except as documented Endocrine Endocrinology: Reports systems reviewed and no addt'l complaints, except as documented Hematologic/Lymphatic Hematologic/Lymphatic: Reports systems reviewed and no addt'l complaints, exceptas documented and easy bruising; Denies easy bleeding or lymphadenopathy Allergic/Immunologic Allergic/Immunologic: Reports systems reviewed and no addt'l complaints, except as documented Intake Vital Signs 03/15/25 10:34 03/29/25 11:21 04/12/25 13:28 04/12/25 13:32 Height 5 ft 5 in 5 ft 5 in 5 ft 5 in 5 ft 5 in Weight: 77.564 kg BMI 28.4 BP 125/68 H Blood Pressure Location Lt brachial Position Sitting Respiration 16 Pulse 75 Pulse Source Monitor Temp 99.2 F H Temperature Source Temporal Artery Pulse Oximetry (%) 93 Oxygen Delivery Method room air Intake Is patient in pain?: No Allergies No Known Allergies Allergy (Verified 04/12/25 13:30) Medications ?Medication ?Instructions ?Recorded ?Confirmed ?Type rosuvastatin 40 mg tablet (Crestor) 40 mg PO QHS YING STEROL 08/18/18 04/12/25 History carvedilol 25 mg tablet 25 mg PO BID blood pressure 04/30/21 04/12/25 History hydralazine 50 mg tablet 50 mg PO BID blood pressure 05/31/21 04/12/25 History apixaban 5 mg tablet (Eliquis) 2.5 mg (1/2 x 5 mg) PO BID #60 tabs 07/20/23 04/12/25 Rx amlodipine 10 mg tablet 10 mg PO DAILY #90 tabs 08/0904/12/25 Rx ipratropium 0.5 mg-albuterol 3 mg 3 ml inhalation Q4H PRN shortness 09/07/23 04/12/25 Rx (2.5 mg base)/3 mL nebulization of breath or wheezing #180 mL soln pembrolizumab 25 mg/mL intravenous 200 mg IV Q21D 04/0204/12/25 History solution (Keytruda) metoclopramide HCl 10 mg tablet 10 mg PO Q6H nausea an d vomiting 2 03/24/25 04/12/25 Rx (Reglan) weeks #56 tabs pantoprazole 40 mg tablet,delayed 40 mg PO DAILY 30 da ys #30 tabs 03/24/25 04/12/25 Rx release (Protonix) budesonide 3 mg 9 mg (3 x 3 mg) PO QDAY #90 ea 03/31/25 04/12/25 Rx capsule,delayed,extended release prednisone 20 mg tablet 10 mg PO DAILY 04/12/2503/03 History Have you fallen in the past year?: No Central Venous Access Central Venous Access: Yes Port/PICC: Port CBC, CMP April 12, 2025 reviewed anemia Exam Physical Exam Narrative ECOG 1 Const alert and no apparent distress Constitutional Narrative: Cushingoid General Appearance: comfortable HEENT normocephalic Mouth: oral and palatal mucosa normal Eyes no scleral icterus General Eye: normal appearance of both eyes Neck full ROM, supple and no JVD Lymph Lymphatic: no lymphadenopathy noted Chest Chest Narrative: Port R IC area Chest: symmetrical chest wall rise and vascular access Resp normal respiratory effort and clear to auscultation bilaterally Cardio regular rate, regular rhythm, S1 normal heart sound, S2 normal heart sound and no murmurs GI soft to palpation, non-tender and non-distended; Negative for hepatosplenomegaly no CVA tenderness Back/Spine no thoracic nor lumbar tenderness Extremity no clubbing, cyanosis or edema Skin no rashes or lesions noted Neuro CN's II-XII intact bilaterally, moves all extremities and no focal motor deficits Speech: speech normal Gait (Neuro): normal gait, assistive device used cane and other Psych mental status grossly normal Coding Level of Care Code Off vis,est,level 4 Exam Problem Focused Diagnoses Cancer of right kidney C64.1 Malignant neoplasm of kidney metastatic to lung C64.9; C78.00 Malignant neoplasm metastatic to right adrenal gland C79.71 Laterality: right Regional lymph node metastasis present C77.9 Cancer of lower lobe of right lung C34.31 History of primary malignant neoplasm of left kidney Z85.528 Brain metastasis C79.31 Iron deficiency anemia due to chronic blood loss D50.0 Assessment and Plan Assessment and Plan (1) Cancer of right kidney: Status: Chronic (2) Malignant neoplasm of kidney metastatic to lung: Status: Chronic (3) 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 Qualifiers: Laterality: right Qualified Code(s): C79.71 - Secondary malignant neoplasm of right adrenal gland (4) 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 Metastatic renal cell cancer incidentally found in the right lower lobe lungresection March 12, 2021 multiple nodules. Patient is status post left nephrectomy in August 2006 for a 6.5 cm clear-cell renal cancer confined to the kidney withno lymphovascular invasion and most likely cured by the radical surgery. Patient has an incidentally (asymptomatic, not PET avid) found at least 2 solid nodules in the right kidney most consistent with primary renal cancer and is themost likely source for the metastatic RCC pathologically confirmed and the rightlower lobe of the lung in March 2021. Patient is in the intermediate risk group based on the international Metastatic Renal Cell Carcinoma Database Consortium criteria since he presents with metastatic disease de corry. Patient started systemic therapy with combination pembrolizumab and axitinib May 07, 2021. He developed a hypertensive crisis ontop of pre-existing hypertension requiring hospitalization (TIA and seizure). Axitinib has been on hold since. He was seen by cardiology (Dr. Sandoval), blood pressure medications were adjusted with better blood pressure control. Although Dr. Sandoval did not feel that axitinib is contraindicated once his blood pressure is under good control, patient is hesitant about resuming therapy with axitinib. He continued to tolerate Keytruda with no grade 3 or 4 toxicities April through August 2021 (so far reported subjective fatigue and noted a rash over the uppertrunk that responded to topical [id number] preparation). Keytruda held August 2021 due to acute kidney injury cause unclear (baseline creatinine 1.0, peak 1.9). 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 His creatinine recovered to baseline by November 2021. * Imaging (no contrast was given) September 2021 shows a marked improvement in the mass involving the right kidney and right adrenal gland. There are stable abnormalities in the chest that are nonspecific. * Imaging (no contrast) November 2021 during an acute episode of abdominal pain suggested slight worsening of the mass involving the right kidney but he had been off therapy for a while. Resumed Keytruda November 2021, recurrent rash manageable with topical steroids is likely a side effect. Slight increase in creatinine (less than 0.3 mg per DL, not mounting to grade 1 toxicity) also likely side effect of Keytruda. * Imaging August 2022 shows if any subtle minimal enlargement in the mass in the right kidney. No other evidence of progression of disease elsewhere. 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 * December 2022 had some recurrent headache and brain MRI showed if any mild increase in the size of the mass in the left posterior parietal lobe with surrounding edema improved with steroids. 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 * Imaging of the chest abdomen and pelvis most recent is March 2025 shows overall stable disease . Lung infiltrate and right pleural effusion nonspecific will be followed up. January 2025 was hospitalized with acute diarrheal illness, was started on oral steroids for provisional diagnosis of checkpoint inhibitor induced gastroenteritis, underwent sigmoidoscopy, pathology came back favoring an infectious etiology over immune mediated enteritis. Weaned off steroids over February 2025 to resume pembrolizumab with no recurrence of diarrhea. 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 Was treated with high-dose steroids gradually weaning of to be replaced with budesonide and was placed on agluten-free diet; improved 2. Non-small cell lung cancer, adenocarcinoma poorly differentiated G3 stage IIB(T3, N1, M0) status post R0 resection March 12, 2021. Tumor is EGFR negative (exons 18, 19, 20 and 21) Adjuvant systemic chemotherapy would be advisable if the patient did not have anactive ongoing 2nd malignancy that is not chemo sensitive. However immune therapy with PDL 1 inhibitor as part of the standard treatment for metastatic non-small cell lung cancer at this time and its role in adjuvant setting is being investigated and is conceivably have some effectiveness. 3. 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 4. Anemia: Of iron deficiency due to chronic GI blood loss (peptic ulcer disease) and cancer cancer its therapy. His anemia did not respond to oral iron vitamin C supplement but improved following IV iron, to relapse again by February 2023 Comorbid conditions: Smoker till February 2021, emphysema (pathology of resection 2020), hiatus hernia. 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 Patient admits that he is not taking. Degenerative spine disease. Plan: 1-resume pembrolizumab and if no recurrences this will further confirm the pathologic impression that the diarrhea was not immune mediated. 2-VEGF inhibitor targeted therapy permanently discontinued due to prior hypertensive crisis complicated with seizures from which he recovered. To consider mtor inhibitor for subsequent therapy in the future. 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 5-IV iron as needed for recurrent iron deficiency anemia from acute and chronic GI blood loss (peptic ulcer disease) . 6-advised continue systemic anticoagulation with Eliquis for incidental finding of pulmonary embolism in April 2023. He self reduced to half dose then stopped altogether sometime in 2024 disease. Angela Rodriguez MD Speech And Language Assistant, [facility] Divisions of Medical Oncology & Hematology Department of Internal Medicine [place] [id number] This note was generated using a voice recognition system software. Although itwas reviewed by the author prior to finalization, it may still contain incorrectwords, spelling, and punctuation that were not noted when reviewing prior to saving. If a clinically significant typo or inaccurately typed phrase is noted, please notify the author. Clinical Quality Measures Falls Risk Screening/Assistive Devices Have you fallen in the past year?: No 04/12/25 1358 <Electronically signed by Angela redd MD> Date _ Angela Rodriguez MD Cosigner Signature: Date (if applicable) CC: Dr. Jacob Jennings, DO ~ [facility] [employer] Work Phone: Progress note Author Thien Sandoval [facility] Services Note Date/Time August 04, 2025 12:09pm [facility] [address] [place] [address] OFFICE VISIT Date of Service: 08/04/25 MR#: [id number] Acct: [id number] Name: KENN ARSHAD Rep #: [id number] : 1955 Provider: Dr. Edilson Sandoval MD Age/Sex: 69/M Location: [facility] Status: Signed HPI HPI History of Present Illness Details: 69-year-old man with a history of renal cell carcinoma status post left nephrectomy in 2005 and a history of coronary artery disease status post bare-metal stenting to the left posterolateral branch with bare-metal stenting in 2002. He also had a drug-eluting stent placed to the left circumflex artery. In 2003 he had plain old balloon angioplasty to the first obtuse marginal branchwhich had in-stent stenosis. He also has a history of hyperlipidemia, hypertension, and mild aortic stenosis. He was noted most recently to have developed recurrent renal cell carcinoma as well as a lung primary which appeared to be separate which was an adenocarcinoma. He was started on chemotherapy and developed a significant surge in his blood pressure. His blood pressures were over 200 systolic. He presented to the hospital at [facility] with confusion and inability to talk and walk well. Extensive work-up includingan MRI of the head, CTA of the neck vessels was performed. Hydralazine was added to his blood pressure medications and he was also started on Keppra. He had also been started on axitinib and unfortunately he did have blood pressure elevation with that and needed to be admitted. That has been discontinued. He was admitted to the hospital in January 2025 with a lower GI bleed and was seen byGI he underwent endoscopy and it demonstrated congested mucosa found in the rectum and rectosigmoid colon biopsies were taken and it demonstrated an inflammatory gastropathy consistent with celiac disease. Has been on a gluten-free diet and his GI problems have abated. He has remained on his Keytruda. Hedid have an echocardiogram performed during that admission demonstrating an ejection fraction of 65% with no wall motion abnormalities noted. He also do remember that in August 2024 he had a stress test performed to a moderate workload with no evidence of ischemia. He has had mild occasional dizziness buthis blood pressure has been under good control. Intake Vital Signs 06/28/25 14:40 07/26/25 10:16 08/04/25 11:48 Height 5 ft 5 in 5 ft 5 in 5 ft 5 in Weight: 185 lb BMI 30.7 BP 132/70 H Blood Pressure Location Rt brachial Position Sitting Respiration 16 Pulse 70 Pulse Source Monitor Temp 98.4 F Temperature Source Temporal Artery Pulse Oximetry (%) 95 Oxygen Delivery Method room air Intake Visit Reasons: 6 M Post Graduate Internship Required: No Accompanied by: Is patient in pain?: No Allergies No Known Allergies Allergy (Verified 08/04/25 11:40) Medications ?Medication ?Instructions ?Recorded ?Confirmed ?Type rosuvastatin 40 mg tablet (Crestor) 40 mg PO QHS YING STEROL 08/18/18 07/26/25 History carvedilol 25 mg tablet 25 mg PO BID blood pressure 04/30/21 07/26/25 History hydralazine 50 mg tablet 50 mg PO BID blood pressure 05/31/21 07/26/25 History apixaban 5 mg tablet (Eliquis) 2.5 mg (1/2 x 5 mg) PO BID #60 tabs 07/20/23 07/26/25 Rx amlodipine 10 mg tablet 10 mg PO DAILY #90 tabs 08/0907/26/25 Rx pembrolizumab 25 mg/mL intravenous 200 mg IV Q21D 04/0207/26/25 History solution (Keytruda) fluticasone fur. 100 mcg-umeclid 1 inh inhalation QDAY #60 ea 06/09/25 07/26/25 Rx 62.5 mcg-vilant 25 mcg inhalat.powder (Trelegy Ellipta) ipratropium 0.5 mg-albuterol 3 mg 3 ml inhalation Q4H PRN shortness 06/09/25 07/26/25 Rx (2.5 mg base)/3 mL nebulization of breath or wheezing #180 mL soln triamcinolone acetonide 0.1 % applic topical 06/09/25 07/26/25 History topical cream budesonide 3 mg 6 mg PO QDAY 08/04/25 Histo ry capsule,delayed,extended release Have you fallen in the past year?: No PFSH Medical History MRSA (methicillin resistant staph aureus) culture positive Acute infective gastroenteritis COPD exacerbation History of steroid therapy Low iron Seizures Shortness of breath on exertion History of pain when walking History of edema History of echocardiogram Cardiology follow-up encounter Cervical spinal cord injury Cervical stenosis of spine Numbness in right leg RUE numbness Diarrhea Hypokalemia Duodenal ulcer Anemia Diabetes mellitus, type 2 Hyperglycemia Hyponatremia Thrombocytopenia Pulmonary emboli COPD (chronic obstructive pulmonary disease) Imbalance Brain metastasis Pneumonia Sinus congestion Hx of radiation therapy Brain metastasis Frequent headaches Epistaxis Contact with or suspected exposure to other viral communicable disease Iron deficiency anemia due to chronic blood loss Encounter for immunotherapy Encounter for immunotherapy COVID-19 Nonrheumatic aortic (valve) stenosis with insufficiency Elevated troponin (05/15/21) Encephalopathy (05/15/21) Seizure (05/15/21) Metastatic renal cell carcinoma to lung Dyspnea Metastasis to adrenal gland Port-A-Cath in place Atherosclerotic heart disease of [place] coronary artery without angina pectoris Hyperlipidemia Wears glasses Wears dentures Gastric reflux Former smoker History of primary malignant neoplasm of left kidney Malignant neoplasm of kidney metastatic to lung Cancer of lower lobe of right lung Skin cancer Abnormal colonoscopy Essential (primary) hypertension COPD (chronic obstructive pulmonary disease) Adenocarcinoma of right lung Surgical History H/O cervical discectomy History of cataract surgery History of lobectomy of lung History of nephrectomy, left History of coronary angioplasty (01/05/04) History of coronary artery stent placement (07/17/03) Family History Sister Diabetes CAD (coronary artery disease) Mother CVA (cerebral vascular accident) CAD (coronary artery disease) Lung cancer Father CAD (coronary artery disease) Brother CAD (coronary artery disease) Social History household members: spouse Smoking Status: Former smoker Tobacco: How many years used: 40 second hand exposure: No alcohol intake: current alcohol intake frequency: a few times a month Alcohol type: beer substance use type: does not use seatbelt use: always do you feel safe at home: Yes ROS Const Const: Negative for fatigue, body ache, fever(s) or chills ENT ENT: Positive for dizziness (dizziness has worsened); Negative for Nosebleed/epistaxis Cardio Chest Pain: No Palpitations: No Edema: None Muscle aches with walking: None Resp Respiratory: Negative for SOB with activity, SOB at rest, SOB orthopnea\SOB lying down, Cough or paroxysmal nocturnal dyspnea GI GI: Negative nausea, bright, red blood in stools, black,tarry stools or loose stools : Negative for hematuria or frequent nighttime urination/ nocturia Musc Musc: Negative for muscle aches/ myalgia Skin Skin: Negative non-healing lesions Neuro Neuro: Positive for dizziness (dizziness has worsened); Negative for lightheadedness, near syncope, syncope or orthostatic symptoms Endo Endo: Negative for fatigue Cardiology Exam Const Appearance: cooperative, healthy appearing, no acute distress, well developed and well groomed Nutritional Appearance: average body habitus and well nourished Orientation: alert, awake and oriented x3 Head Head: normal to inspection, normocephalic and atraumatic Ears: hearing grossly normal bilaterally and external ears normal Nose: external nose normal, nares normal, nasal mucous membranes and turbinates normal, septum normal and no nasal discharge Face and Sinus: face symmetric Mouth: oral mucosae normal, tongue normal, oropharynx normal and moist mucous membranes Teeth and gingiva: dentition normal Throat: posterior oropharynx normal, tonsils normal and uvula midline Eyes General: appearance normal, both eyes and all related structures Eyelids: eyelids normal Conjunctivae: conjunctivae normal Pupils: PERRL, normal by confrontation and accommodation normal EOM: EOM intact bilaterally Neck Neck: normal visual inspection, trachea midline and no JVD JVD: +5 Carotids: normal carotid upstroke, bounding pulses and bruit Chest Chest inspection: normal inspection of the chest, symmetric chest movement and normal respiratory effort Auscultation: Bilateral: Clear to Auscultation Cardio Palpation: normal PMI Rate: regular rate Rhythm: regular rhythm Heart sounds: S1 normal, S2 normal, murmur and normal, physiologic split S2; Negative rub or gallop Murmur: Grade 2/6 and early systolic GI GI: normal to inspection, soft, no hepatosplenomegaly and bowel sounds present Neuro General: patient alert, patient awake, patient oriented x3, gait normal, moves all extremities and no focal sensory deficit Skin Skin: no rashes or lesions noted Extremities Pulses: Normal: Right Femoral Pulse, Left Femoral Pulse, Right Dorsalis Pedis Pulse, Left Dorsalis Pedis Pulse, Right Posterior Tibial Pulse, Left Posterior Tibial Pulse, Right Radial Pulse and Left Radial Pulse Lower Extremity Edema: None: Bilateral Musculoskel Musculoskeletal: No joint tenderness Psych Psychological: normal affect Supplemental Info Supplemental Information Labs: LDL Cholesterol, (0-130) 68 mg/dL HDL Cholesterol, (40-) 35 mg/dL L Cholesterol, (200) 132 mg/dL Triglycerides, (-199) 147 mg/dL Diagnostics: Electrocardiogram Echocardiogram Stress Test Stress Test Nuclear Medicine Chest X-Ray Chest CTA Abdomen/Pelvis CT Carotid Duplex Venous Doppler Study Pulmonary: Pulmonary Function Test Pulmonary Exercise Test Past Visits: Cardiology Visit Today Assessment and Plan Assessment and Plan (1) History of coronary artery stent placement: Status: Resolved Comment: AVN-LOV-TEKS w/ 2.25 x 18 mm Biodivysio Stent x 2, BMS-OM1 w/ 2.25 x 18 mm Biodivysio Stent and 2.25 x 18 mm Pixel Stent and MARVIN-Prox LCx w/ 3.5 x 18 mm Cypher Stent 07/17/2003 Plan: He does have a history of coronary artery disease status post previous angioplasty and stenting. He is doing well and the plan is for him to continue the current medical therapy without making any changes. His myocardial perfusion scan did not demonstrate any evidence of ischemia and the plan is to continue him on the current medical therapy. (2) Essential (primary) hypertension: Status: Chronic Plan: He does have a history of hypertension his blood pressure is under good control. I would not recommend that we make any changes at this time. His blood pressure based on his recent echocardiogram was noted to be stable. (3) Nonrheumatic aortic (valve) stenosis with insufficiency: Status: Chronic Plan: He does have mild aortic stenosis with mild regurgitation. His last echocardiogram was encouraging we will continue to follow him with serial echocardiograms. (4) Hyperlipidemia: Status: Chronic Plan: Does have a history of hyperlipidemia and his most recent lipid profile demonstrated a total cholesterol 156, LDL of 62 and HDL of 78. No changes will be made at this time. Repeat lipid profile will be performed. (5) Metastatic renal cell carcinoma to lung: Status: Chronic Qualifiers: Laterality: right Qualified Code(s): C78.01 - Secondary malignant neoplasm of right lung; C64.9 - Malignant neoplasm of unspecified kidney, except renal pelvis Comment: RIGHT LOWER LOBECTOMY Plan: He does have metastatic renal carcinoma to the lung. He is doing well and is seen the oncologist as well as radiation oncologist. On his visit to the cardiooncology clinic today he appears to be stable and no major changes were made Thank you for allowing me to participate in the care of your patient. Please don't hesitate to call if any issues arise. (6) Carotid bruit: Status: Acute Plan: He does have bilateral carotid bruits. My recommendation be for us to obtain carotid ultrasound and depending on the findings further recommendations will bemade. Plan Details Follow Up: 6 Months (abstract manager/onc) Coding Level of Care Code Off vis,est,level 4 Diagnoses History of coronary artery stent placement Z95.5 Essential (primary) hypertension I10 Nonrheumatic aortic (valve) stenosis with insufficiency I35.2 Hyperlipidemia E78.5 Secondary renal cell carcinoma of right lung C78.01; C64.9 Laterality: right Carotid bruit R09.89 Coding Level of Care Code Off vis,est,level 4 Diagnoses History of coronary artery stent placement Z95.5 Essential (primary) hypertension I10 Nonrheumatic aortic (valve) stenosis with insufficiency I35.2 Hyperlipidemia E78.5 Secondary renal cell carcinoma of right lung C78.01; C64.9 Laterality: right Carotid bruit R09.89 Clinical Quality Measures Falls Risk Screening/Assistive Devices Have you fallen in the past year?: No 08/04/25 0934 <Electronically signed by Thien Nava> Date _ Thien Sandoval MD Cosigner Signature: Date (if applicable) CC: ~ [facility] [employer] Work Phone: Progress note Author Verónica Meadows [facility] Services Note Date/Time August 16, 2025 12 :08pm [facility] [place] [address] OFFICE VISIT Date of Service: 08/16/25 1125 MR#: [id number] Acct: [id number] Name: KENN ARSHAD Rep #: [id number] : 1955 From: Verónica Leavitt CHARGE OUT CLERK CHARGE OUT CLERK-C Age/Sex: 69/M Location: [facility] [place] Status: Signed HPI Subjective Date of Service 08/16/25 Chief Complaint Metastatic kidney cancer on treatment History of Present Illness Patient is a 69-year-old male smoker till February 2021 who in January 28, 2021 underwent a lung cancer screening CT scan: Showed a spiculated partially cavitary mass within the right lower lobe measuring up to 5.3 cm in maximum diameter with right hilar lymphadenopathy. February 14, 2021 PET/CT showed intensely avid right lower lobe mass consistent withmalignancy with FDG accumulation within right hilar lymph node consistent with ramon metastases and no evidence of distant metastatic disease. Small noncalcified nodules at the periphery of the right lung base with no appreciableFDG accumulation were noted. February 20, 2021 right lower lobe lung guided biopsy showed moderately to poorly differentiated adenocarcinoma of lung primary. March 08, 2021 brain MRI showed no abnormal intracranial enhancement to suggest intracranial metastases. March 13, 2021 patient underwent right video-assisted thoracoscopy converted to right muscle-sparing thoracotomy with right lower lobe lobectomy, right upper lobe wedge, right middle lobe wedge and mediastinal lymph node dissection by : Pathology: A. Right upper lobe wedge resection negative for malignancy. B. Right middle lobe wedge resection negative for malignancy. C. Lymph node right pulmonary ligament negative for metastatic carcinoma. D. Lymph node 11 R right middle negative for malignancy. E. Right lower lobe lobectomy multifocal adenocarcinoma grade 3. Incidentally found multiple metastatic nodules of clear-cell renal cell carcinoma and 1 of 5 peribronchial lymph nodes positive for metastatic carcinoma. F. Lymph node 11 R anterior 1 lymph node positive for metastatic carcinoma. G. Lymph node 11 R posterior negative for metastatic carcinoma. H. Lymph node level 7 1 lymph node negative for metastatic carcinoma I. Lymph node level 7 1 lymph node negative for metastatic carcinoma. J. Lymph node level 4R lower paratracheal negative for metastatic carcinoma K. Lymph node right upper paratracheal negative for metastatic carcinoma. Pathologic staging T3N1. EGFR mutation negative. Patient's past medical history is notable for being status post left total nephrectomy in 2005 for kidney cancer. He has been a smoker most of his adult life quit in February 2021 and consumes an average 2 beers per day. April 18, 2021 renal ultrasound: IMPRESSION: Status post left nephrectomy. 2. Hypoechoic solid nodules seen in the right kidney as described. Neoplastic process should be ruled out. Correlation with a CT scan is recommended for further evaluation. 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 May 02, 2021 CT abdomen and pelvis: IMPRESSION: 1. Small right pleural effusion. 2. Solid enhancing masses of the right kidney and right adrenal gland worrisome for metastatic renal cell carcinoma. No retroperitoneal lymphadenopathy. 3. Large left medially in hernia containing a segment of the descending colon and small bowel without bowel obstruction. September 25, 2021 CT chest abdomen and pelvis: IMPRESSION: Status post left nephrectomy. Interval improvement in the previously seen right adrenal mass. The remainder of the examination is unchanged. June 13, 2021 CT abdomen and pelvis: IMPRESSION: 1. Reidentification of large lobular mass of the right adrenal gland measuring at least 4 cm, suspicious for metastatic disease. Without contrast this is poorly evaluated but on the prior study with contrast a heterogeneous mass was visualized. 2. Reidentification of a rounded partially exophytic mass in the medial aspect of the midpole of the right kidney measuring at least 2.56 cm also demonstrated enhancement on the prior study which is suspicious for malignancy. September 25, 2021 CT chest abdomen and pelvis: IMPRESSION: Status post left nephrectomy. Interval improvement in the previously seen right adrenal mass. The remainder of the examination is unchanged. December 03, 2021 CT abdomen and pelvis, for an episode of acute abdominal pain: IMPRESSION: No acute findings. Suspect slight interval enlargement of the lower pole mass in the right kidney compatible with renal cell carcinoma, not well evaluated without IV contrast. Left flank hernia containing large and small bowel loops, not fully visible. No evidence of obstruction. March 04, 2022 CT chest abdomen and pelvis: IMPRESSION: 1. 3.7 x 3.2 x 3.4 cm mass concerning for neoplasm in the mid to lower right kidney is grossly stable from 12/03/2021. 2. No metastatic disease in the remainder of the exam. May 27, 2022 CT chest abdomen and pelvis: IMPRESSION: Stable examination. Exophytic soft tissue mass in the posterior medial aspect of the mid to lower aspect of the right kidney. Stable hyperplasia of the right adrenal gland. September 08, 2022 CT chest abdomen and pelvis: IMPRESSION: Stable CT scan of the thorax. Slight enlargement of the previously seen lobular solid mass in the medial mid lower portions of the right kidney. October 14, 2022 brain MRI: IMPRESSION: 1.6 cm enhancing mass in the left posterior parietal lobe containing old hemorrhage concerning for hemorrhagic metastasis.? Large amount of surrounding edema with partial effacement of the left lateral ventricle. Paranasal sinus inflammatory disease. Chronic involutional white matter changes. December 16, 2022 brain MRI: IMPRESSION: 1.? No MRI evidence of acute or subacute ischemic infarct or new brain metastatic disease.? 2.? Mild increase in size of enhancing metastatic mass in the left posterior parietal lobe measuring 1.2 x 1.6 cm, previously 1.4 x 1.2 cm. No obvious significant change of the vasogenic edema surrounding the enhancing metastatic mass in the left posterior parietal lobe.? 3.? Mild improvement of mucosal edema in the ethmoid sinuses. December 29, 2022 CT chest abdomen and pelvis: FINDINGS: CHEST Lungs are mildly hyperexpanded, with chronic interstitial changes and nonspecific pleural thickening in both hemithoraces. There is no suspicious noncalcified mass or nodule, organized infiltrate or effusion. Thyroid gland is unremarkable. Normal heart and pericardium.? There are calcifications of the coronary arteries. No suspicious axillary, mediastinal, or perihilar lymph nodes. . Normal unenhanced pulmonary arteries. ? Peripheral calcifications in the thoracic aorta without aneurysm. Bony structures show mild degenerative changes. ABDOMEN Liver is unremarkable aside from a simple cyst in the left lobe.? Normal gallbladder and extrahepatic biliary system.? Normal spleen.? Normal pancreas. Normal bilateral adrenal glands. There has been a previous left nephrectomy. No suspicious soft tissue mass or adenopathy in the left nephrectomy bed. Right kidney shows a stable concerning 3.95 x 3.71 cm mass in the lower pole. 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 Normal visualized stomach.? Normal small intestine.? Normal colon.? The appendix is visualized and appears normal. Appendix seen on coronal recon images 50 through 60 There is diffuse atherosclerotic calcification of the abdominal aorta with elongation and tortuosity, but without a demonstrated aneurysm.? Normal inferior vena cava.? Scattered subcentimeter in short axis dimension unchanged mesenteric and retroperitoneal lymph nodes. Stable left-sided spigelian hernia. Bony structures show degenerative change PELVIS Normal urinary bladder. There is no pelvic fluid.? There is no pelvic lymphadenopathy or mass lesion. Normal visualized pelvic arteries. Fat-containing right inguinal hernia.? There are diffuse degenerative changes of the visualized lumbar spine, and pelvis. IMPRESSION: There is a persistent suspicious solid mass in the lower pole of the right kidney measuring 3.95 x 3.71 cm which is anything is slightly increased in size since the previous study from August. 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 Stable simple hepatic cyst, no specific follow-up needed.? Chronic interstitial changes in both lung post without a superimposed acute pulmonary process? Degenerative bony changes? Stable-appearing left spigelian hernia January 21, 2023 brain MRI: IMPRESSION: Persistent partially hemorrhagic metastasis in the left parietal lobe with vasogenic edema which is relatively stable in size since prior study. No new lesions identified March 13, 2023 chest abdomen and pelvis CT: IMPRESSION: 1.? Slightly larger right posterior mediastinal lymph node of uncertain significance.? 2.? Stable solid 4.2 cm right renal mass. March 16, 2023 brain MRI: IMPRESSION: 1.? There is moderate interval enlargement and doubling in size of the mass in the posterior medial aspect and middle one third region of the left parietal lobe at the periphery of the splenium of the corpus callosum -the primary concern is for progression of the malignancy, however post radiation necrosis and flaring can be considered if there is history of recent radiation treatment to this region. MR spectroscopy can also be acquired to help in differentiating the processes. Clinical consult with neurosurgery is recommended. The left parietal mass has a thick enhancing rim with central necrosis and now measures 3.10 x 2.28 cm compared to the previous measurement of 1.2 x 1.6 cm. 2.? The surrounding vasogenic edema has slightly increased and is extended to the parasagittal and posterior aspect of the superior segment of the occipital lobe and has slightly increased in the anterior to posterior dimension and superior and posterior aspect of the left parietal lobe when compared to the prior study compared images 18/25 series 6 on the old study and 18/25 series 6 on the current study. 3.? There is also slightly more mass effect on the occipital horn of the left lateral ventricle compared to the prior study. Minimal midline shift of 1 to 2 mm is present. 4.? No hydrocephalus is seen. There is no transtentorial herniation. 5.? There are no visualized metastatic lesions in the remaining aspects of the cerebral hemispheres or in the posterior fossa April 16, 2023 MRI spectroscopy at [facility] Main campus: Impression: Spectroscopy and perfusion findings medial and dorsal aspects of the treated presumed left parietal metastasis compatible with viable tumor with more extensive surrounding radiation necrosis. May 02, 2023 CTA; emergency room visit because of shortness of breath to rule out PE IMPRESSION: No evidence of acute pulmonary embolism. Small chronic nonocclusive right lower lobar pulmonary embolism. New 3 mm spiculated right lower lobe nodule and left lower lobe pulmonary nodules measuring up to 8 mm, suspicious for metastases. Progression of mild mediastinal and hilar lymphadenopathy. Mild pneumonitis or atypical pneumonia with mosaic attenuation pattern and groundglass opacities with mild septal thickening most confluent in the left upper lobe inferiorly. Chronic scarring in the right lung with pleural thickening. Enhancing right renal mass. Left nephrectomy. These images were reviewed by myself and radiology colleague (courtesy second opinion with question biopsy) and new right lower lobe nodule was not verifiedand by no means would be amenable to biopsy at the size. June 28, 2023 CT chest abdomen and pelvis: IMPRESSION: Stable probable hepatic cyst. Relatively stable right renal masses as noted. Status post left nephrectomy. Mild peripheral interstitial thickening in the lungs. Mild mediastinal adenopathy. October 05, 2023 CT chest abdomen and pelvis: IMPRESSION: 1. Improved bilateral hazy groundglass opacities/infiltrates. 2. Right middle lobe pleural-based density likely due to scarring and postoperative changes unchanged. 3. No evidence of new metastatic disease. 4. Status post left nephrectomy. 5. Left lateral ventricle hernia containing bowel loops and colon without evidence of obstruction unchanged. 6. Bilateral inguinal hernias containing fat. 7. No focal acute inflammatory process. January 13, 2024 chest abdomen and pelvis CT: IMPRESSION: 1. Chronic changes in the lungs unchanged. 2. Stable 7 mm left lower lobe nodule. 3. Stable right paratracheal adenopathy unchanged 4. No evidence of new metastatic disease. 5. Status post left nephrectomy. 6. Stable solid mass in the right kidney likely malignant until proven otherwise. 7. Additional nonacute changes as described above. 8. Further follow-up exam is needed. April 27, 2024 chest abdomen and pelvis CT: IMPRESSION: Stable examination. August 09, 2024 CT chest abdomen and pelvis: IMPRESSION: 1. Solid right-sided renal nodule suggests renal cell carcinoma. This appears unchanged since previous CT. 2. Status post left-sided nephrectomy. 3. Left flank ventral hernia containing bowel. 4. Left basilar airspace disease and/or atelectasis. 5. Unchanged appearance to right middle lobe subpleural nodule. January 10, 2025 CT chest abdomen and pelvis: IMPRESSION: 1. No CT evidence of acute pulmonary embolism. 2. Stable right renal mass suggestive of renal cell carcinoma. Exophytic cyst and lipoma/angiomyolipoma are also noted in the right kidney. 3. Nodular densities in the right middle and right lower lobe which may represent atypical infection versus neoplastic/metastatic disease. 4. Hepatic steatosis and hepatomegaly 5. Mild intrahepatic biliary dilatation 6. Mild splenomegaly January 18, 2025 sigmoidoscopy: SIGMOID COLON, BIOPSY: - Focal active colitis with acute cryptitis and crypt abscess ? see note. - Note: The focal and limited nature of the inflammation, plus lack of apoptosisor crypt distortion/drop ou,t and without increased eosinophils, favors focal active colitis due to bowel prep artifact or medication injury (eg: NSAIDs) or resolving/mild infection over immunotherapy-induced colitis. March 21, 2025 CT chest abdomen and pelvis: IMPRESSION: New right pleural effusion with infiltration in both lungs worse on the right side as described. Status post left nephrectomy. Persistent masses in the right kidney. March 22, 2025 EGD: Impressions : - Non-severe reflux esophagitis with no bleeding. - Erythematous mucosa in the gastric body. - Duodenal mucosal changes seen, diagnostic of celiac disease. Biopsied. Pathology: MICROSCOPIC DIAGNOSIS A. Small bowel, duodenum, biopsy: - Marked villous blunting with acute inflammation and patchy mild increase of intraepithelial lymphocytes Trichrome stain highlights patchy mild thickening of the subepithelial collagen table. The consensus opinion is: Collagenous colitis pattern of injury - see comment. Comment: There is atrophy of villi with increased intraepithelial lymphocytes, scattered surface neutrophilic inflammation and increased subepithelial collagen. This is consistent with collagenous colitis pattern of injury which is a non-specific pattern of injury. The differential diagnosis includes celiac disease and medication-related injury. While these features can be seen with immunocheckpoint inhibitor enteritis, there would usually be more prominent acute inflammation and increased apoptosis. Correlation with clinical impression, medication history, and serologic studies is recommended June 28, 2025 CT chest abdomen and pelvis: IMPRESSION: Interval improvement in the right pleural effusion as well as the previously seen nodular densities in both lung bases as described. Residual small right pleural effusion. Stable right renal masses. Diffuse bladder wall thickening. Prostatic enlargement with calcifications. Stable hernia in the posterior lateral aspect of the left midabdomen containing nondilated small bowel loops. Treatment summary and response: * 2005 left radical nephrectomy. * March 13, 2021 video-assisted thoracoscopy converted to right muscle-sparing thoracotomy with right lower lobe lobectomy, right upper lobe wedge, right middle lobe wedge and mediastinal lymph node dissection. * May 07, 2021 pembrolizumab plus axitinib for metastatic RCC. Axitinib discontinued May 2021 due to hypertensive crisis. * Keytruda single agent May 07 ?July 30, 2021 (5 cycles) [place] but held in August 2021 due to ELANA. Resumed November 26, 2021 with no recurrent. Held again January 2025 when he developed acute colitis. To resume March 13, 2025 * Stereotactic brain radiation at [facility] October 28, 2022 a single fraction with 10 MV photons. Interval History Patient is here in the clinic accompanied by spouse for an evaluation anticipating he will begin c65 pembrolizumab. C/o dizziness ongoing x several weeks. Discussed with Dr. Acevedo and has MRI later today and follow up with him next week. Rash involving upper back continues, mild intermittent- unchanged. Using triamcinolone cream as prescribed by dermatology. Adherent to GF diet as advised by GI, no N/V/D. [facility] Medical History MRSA (methicillin resistant staph aureus) culture positive Acute infective gastroenteritis COPD exacerbation History of steroid therapy Low iron Seizures Shortness of breath on exertion History of pain when walking History of edema History of echocardiogram Cardiology follow-up encounter Cervical spinal cord injury Cervical stenosis of spine Numbness in right leg RUE numbness Diarrhea Hypokalemia Duodenal ulcer Anemia Diabetes mellitus, type 2 Hyperglycemia Hyponatremia Thrombocytopenia Pulmonary emboli COPD (chronic obstructive pulmonary disease) Imbalance Brain metastasis Pneumonia Sinus congestion Hx of radiation therapy Brain metastasis Frequent headaches Epistaxis Contact with or suspected exposure to other viral communicable disease Iron deficiency anemia due to chronic blood loss Encounter for immunotherapy Encounter for immunotherapy COVID-19 Nonrheumatic aortic (valve) stenosis with insufficiency Elevated troponin (05/15/21) Encephalopathy (05/15/21) Seizure (05/15/21) Metastatic renal cell carcinoma to lung Dyspnea Metastasis to adrenal gland Port-A-Cath in place Atherosclerotic heart disease of [place] coronary artery without angina pectoris Hyperlipidemia Wears glasses Wears dentures Gastric reflux Former smoker History of primary malignant neoplasm of left kidney Malignant neoplasm of kidney metastatic to lung Cancer of lower lobe of right lung Skin cancer Abnormal colonoscopy Essential (primary) hypertension COPD (chronic obstructive pulmonary disease) Adenocarcinoma of right lung Surgical History H/O cervical discectomy History of cataract surgery History of lobectomy of lung History of nephrectomy, left History of coronary angioplasty (01/05/04) History of coronary artery stent placement (07/17/03) Family History Sister Diabetes CAD (coronary artery disease) Mother CVA (cerebral vascular accident) CAD (coronary artery disease) Lung cancer Father CAD (coronary artery disease) Brother CAD (coronary artery disease) Social History household members: spouse Smoking Status: Former smoker Tobacco: How many years used: 40 second hand exposure: No alcohol intake: current alcohol intake frequency: a few times a month Alcohol type: beer substance use type: does not use seatbelt use: always do you feel safe at home: Yes ROS ROS Narrative Negative except as documented in the interval HPI Intake Vital Signs 07/05/25 13:19 08/16/25 11:26 Height 5 ft 5 in 5 ft 5 in Weight: 182 lb 7 oz BMI 30.3 BP 150/72 H Blood Pressure Location Lt brachial Position Sitting Respiration 18 Pulse 75 Pulse Source Monitor Temp 98.1 F Temperature Source Temporal Artery Pulse Oximetry (%) 91 Oxygen Delivery Method room air Intake Accompanied by: Self Is patient in pain?: No Allergies No Known Allergies Allergy (Verified 08/16/25 11:29) Medications ?Medication ?Instructions ?Recorded ?Confirmed ?Type rosuvastatin 40 mg tablet (Crestor) 40 mg PO QHS YING STEROL 08/18/18 08/16/25 History carvedilol 25 mg tablet 25 mg PO BID blood pressure 04/30/21 08/16/25 History hydralazine 50 mg tablet 50 mg PO BID blood pressure 05/31/21 08/16/25 History apixaban 5 mg tablet (Eliquis) 2.5 mg (1/2 x 5 mg) PO BID #60 tabs 07/20/23 08/16/25 Rx amlodipine 10 mg tablet 10 mg PO DAILY #90 tabs 08/0908/16/25 Rx pembrolizumab 25 mg/mL intravenous 200 mg IV Q21D 04/0208/16/25 History solution (Keytruda) fluticasone fur. 100 mcg-umeclid 1 inh inhalation QDAY #60 ea 06/09/25 08/16/25 Rx 62.5 mcg-vilant 25 mcg inhalat.powder (Trelegy Ellipta) ipratropium 0.5 mg-albuterol 3 mg 3 ml inhalation Q4H PRN shortness 06/09/25 08/16/25 Rx (2.5 mg base)/3 mL nebulization of breath or wheezing #180 mL soln triamcinolone acetonide 0.1 % applic topical 06/09/25 08/16/25 History topical cream budesonide 3 mg 6 mg PO QDAY 08/04/25 History capsule,delayed,extended release Have you fallen in the past year?: No Central Venous Access Central Venous Access: Yes Port/PICC: Port Laboratory Tests 08/16/25 10:35 WBC 7.0 Hgb 12.4 L Hct 39.0 L Plt Count 166 Absolute Neuts (auto) 4.8 Sodium 139 Potassium 3.8 Chloride 107 Carbon Dioxide 20.3 L BUN 24 H Creatinine 1.01 Glucose 93 Calcium 8.8 Phosphorus 3.6 Total Bilirubin 0.46 AST 15 ALT 12 Alkaline Phosphatase 50 Albumin 3.8 Exam Physical Exam Narrative ECOG 1 Const alert and no apparent distress General Appearance: comfortable HEENT normocephalic Mouth: oral and palatal mucosa normal and No thrush Eyes no scleral icterus General Eye: normal appearance of both eyes Neck full ROM, supple and no JVD Lymph Lymphatic: no lymphadenopathy noted Chest Chest Narrative: Port R IC area Chest: symmetrical chest wall rise and vascular access Resp normal respiratory effort and clear to auscultation bilaterally Cardio regular rate, regular rhythm, S1 normal heart sound, S2 normal heart sound and no murmurs GI soft to palpation, non-tender and non-distended; Negative for hepatosplenomegaly no CVA tenderness Back/Spine no thoracic nor lumbar tenderness Extremity no clubbing, cyanosis or edema Skin no rashes or lesions noted Skin Narrative: BLE with ecchymosis- various stages of healing. Neuro CN's II-XII intact bilaterally, moves all extremities and no focal motor deficits Speech: speech normal Gait (Neuro): normal gait, assistive device used cane and other Psych mental status grossly normal Coding Level of Care Code Off vis,est,level 4 Exam Problem Focused Diagnoses Cancer of right kidney C64.1 Malignant neoplasm of kidney metastatic to lung C64.9; C78.00 Malignant neoplasm metastatic to right adrenal gland C79.71 Laterality: right Regional lymph node metastasis present C77.9 Cancer of lower lobe of right lung C34.31 History of primary malignant neoplasm of left kidney Z85.528 Brain metastasis C79.31 Iron deficiency anemia due to chronic blood loss D50.0 Assessment and Plan Assessment and Plan (1) Cancer of right kidney: Status: Chronic (2) Malignant neoplasm of kidney metastatic to lung: Status: Chronic (3) 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 Qualifiers: Laterality: right Qualified Code(s): C79.71 - Secondary malignant neoplasm of right adrenal gland (4) 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 Metastatic renal cell cancer incidentally found in the right lower lobe lungresection March 12, 2021 multiple nodules. Patient is status post left nephrectomy in August 2006 for a 6.5 cm clear-cell renal cancer confined to the kidney withno lymphovascular invasion and most likely cured by the radical surgery. Patient has an incidentally (asymptomatic, not PET avid) found at least 2 solid nodules in the right kidney most consistent with primary renal cancer and is themost likely source for the metastatic RCC pathologically confirmed and the rightlower lobe of the lung in March 2021. Patient is in the intermediate risk group based on the international Metastatic Renal Cell Carcinoma Database Consortium criteria since he presents with metastatic disease de corry. Patient started systemic therapy with combination pembrolizumab and axitinib May 07, 2021. He developed a hypertensive crisis ontop of pre-existing hypertension requiring hospitalization (TIA and seizure). Axitinib has been on hold since. He was seen by cardiology (Dr. Sandoval), blood pressure medications were adjusted with better blood pressure control. Although Dr. Sandoval did not feel that axitinib is contraindicated once his blood pressure is under good control, patient is hesitant about resuming therapy with axitinib. He continued to tolerate Keytruda with no grade 3 or 4 toxicities April through August 2021 (so far reported subjective fatigue and noted a rash over the uppertrunk that responded to topical [id number] preparation). Keytruda held August 2021 due to acute kidney injury cause unclear (baseline creatinine 1.0, peak 1.9). 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 His creatinine recovered to baseline by November 2021. * Imaging (no contrast was given) September 2021 shows a marked improvement in the mass involving the right kidney and right adrenal gland. There are stable abnormalities in the chest that are nonspecific. * Imaging (no contrast) November 2021 during an acute episode of abdominal pain suggested slight worsening of the mass involving the right kidney but he had been off therapy for a while. Resumed Keytruda November 2021, recurrent rash manageable with topical steroids is likely a side effect. Slight increase in creatinine (less than 0.3 mg per DL, not mounting to grade 1 toxicity) also likely side effect of Keytruda. * Imaging August 2022 shows if any subtle minimal enlargement in the mass in the right kidney. No other evidence of progression of disease elsewhere. 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 * December 2022 had some recurrent headache and brain MRI showed if any mild increase in the size of the mass in the left posterior parietal lobe with surrounding edema improved with steroids. 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 * Imaging of the chest abdomen and pelvis most recent is June 2025 shows overall stable disease . January 2025 was hospitalized with acute diarrheal illness, was started on oral steroids for provisional diagnosis of checkpoint inhibitor induced gastroenteritis, underwent sigmoidoscopy, pathology came back favoring an infectious etiology over immune mediated enteritis. Weaned off steroids over February 2025 to resume pembrolizumab with no recurrence of diarrhea. 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 Was treated with high-dose steroids gradually weaning of to be replaced with budesonide and was placed on agluten-free diet; improved 2. Non-small cell lung cancer, adenocarcinoma poorly differentiated G3 stage IIB(T3, N1, M0) status post R0 resection March 12, 2021. Tumor is EGFR negative (exons 18, 19, 20 and 21) Adjuvant systemic chemotherapy would be advisable if the patient did not have anactive ongoing 2nd malignancy that is not chemo sensitive. However immune therapy with PDL 1 inhibitor as part of the standard treatment for metastatic non-small cell lung cancer at this time and its role in adjuvant setting is being investigated and is conceivably have some effectiveness. 3. 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 4. Anemia: Of iron deficiency due to chronic GI blood loss (peptic ulcer disease) and cancer cancer its therapy. His anemia did not respond to oral iron vitamin C supplement but improved following IV iron, to relapse again by February 2023 Comorbid conditions: Smoker till February 2021, emphysema (pathology of resection 2020), hiatus hernia. 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 Degenerative spine disease. Plan: 1-continue pembrolizumab cycle 65 today. 2-VEGF inhibitor targeted therapy permanently discontinued due to prior hypertensive crisis complicated with seizures from which he recovered. To consider mtor inhibitor for subsequent therapy in the future. 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 MRI brain at [facility] later today, follow up with Dr. Acevedo next week. 4-elective imaging every 4 months next to schedule October 2025. 5-IV iron as needed for recurrent iron deficiency anemia from acute and chronic GI blood loss (peptic ulcer disease). 6-advised continue systemic anticoagulation with Eliquis for incidental finding of pulmonary embolism in April 2023 at reduced dose of 2.5 Mg twice daily. There have been occasions when he stopped it by his own initiative then resumes back. RTO 09/06/25 for ?c65 pembrolizumab. Clinical Quality Measures Falls Risk Screening/Assistive Devices Have you fallen in the past year?: No 08/16/25 1208 <Electronically signed by Verónica castro NP, NP-C> Date _ Verónica BALLARDC Cosigner Signature: Date (if applicable) CC: ~ [facility] [employer] Work Phone: Reason for referral (narrative)* Consultation (Routine) - Pending Review Specialty Diagnoses / Procedures Referred By Colt kurtz Referred To Contact Otolaryngology Diagnoses Epistaxis Procedures [place] OFFICE/OUTPATIENT [facility] 60 MINUTES Em Philip PA-C [address] [place] [address] Referral ID Status Reason Start Date Expiration Date Visits Requested Visits Authorized [id number] Pending Review Specialty Services Required 11/24/2023 11/23/2024 1 1 [facility] Consultation (Routine) - Pending Review Specialty Diagnoses / Procedures Referred By Contac t Referred To Contact Gastroenterology Diagnoses History of colon polyps Colon cancer screening Procedures [place] OFFICE/OUTPATIENT NEW HIGH MDM 60 MINUTES Jacob Jennings, DO [address] [place] [address] Gaye Osei [address] [facility] [place] [address] Referral ID Status Reason Start Date Expiration Date Visits Requested Visits Authorized [id number] Pending Review Specialty Services Required 01/08/2024 01/07/2025 1 1 [facility] Consultation (Routine) - Pending Review Specialty Diagnoses / Procedures Referred By Contac t Referred To Contact Dermatology Diagnoses Basal cell carcinoma (BCC) of right cheek Procedures [place] OFFICE/OUTPATIENT [facility] MDM 60-74 MINUTES Jacob Jennings DO [address] [place] [address] Lexus Carreno MD [address] [place] [address] Referral ID Status Reason Start Date Expiration Date Visits Requested Visits Authorized [id number] Pending Review Specialty Services Required 01/01/2023 01/01/2024 1 1 * Imaging (Routine) - Authorized Specialty Diagnoses / Procedures Referred By Contac t Referred To Contact Cardiology Diagnoses Bruit of right carotid artery Procedures Vascular US carotid artery duplex bilateral Jacob Jennings DO [address] [place] [address] Referral ID Status Reason Start Date Expiration Date Visits Requested Visits Authorized [id number] Authorized Perform Procedure 01/01/2023 06/30/2023 1 1 [facility] Consultation (Routine) - Pending Review Specialty Diagnoses / Procedures Referred By Shelliac t Referred To Contact Dermatology Diagnoses Basal cell carcinoma (BCC) of right cheek Procedures [place] OFFICE/OUTPATIENT NEW HIGH MDM 60-74 MINUTES Jacob Jennings DO [address] [place] [address] Lexus Carreno MD [address] [facility] [address] [address] Referral ID Status Reason Start Date Expiration Date Visits Requested Visits Authorized [id number] Pending Review Specialty Services Required 01/02/2023 01/02/2024 1 1 * Imaging (Routine) - Pending Review Specialty Diagnoses / Procedures Referred By Shelliac t Referred To Contact Cardiology Diagnoses Bruit of right carotid artery Procedures Vascular US carotid artery duplex bilateral Jacob Jennings DO [address] [place] [address] Referral ID Status Reason Start Date Expiration Date Visits Requested Visits Authorized [id number] Pending Review Perform Procedure 01/02/2023 07/01/2023 1 1 [facility])* Medications - Pending Review Specialty Diagnoses / Procedures Referred By Colt t Referred To Contact Jacob Jennings DO [address] [place] [address] Phone: tel: fax: Referral ID Status Reason Start Date Expiration Date V isits Requested Visits Authorized [id number] Pending Review 02/21/2025 08/20/2025 1 1 [facility] (narrative)No reason for referral information availableWKettering Health [facility] Work Phone: Reason for visit Narrative* MRI/CT (Routine) - Closed Specialty Diagnoses / Procedures Referred By Colt kurtz Referred To Contact MR IMAGING Diagnoses Secondary malignant neoplasm of brain (HCC) Procedures MRI BRAIN WO/W IVCON MRI BRAIN BRAIN STEM W/O W/CONTRAST MATERIAL Francois Acevedo MD [address] [facility] [place] [address] Phone: tel: fax: [place] [address] Referral ID Status Reason Start Date Expiration Date V isits Requested Visits Authorized [id number] Closed Auto-Generate d Referral 11/18/2024 12/18/2025 1 1 [facility] Assessments Diagnosis Right carotid bruit Other symptoms involving cardiovascular system Diagnosis Smoker Tobacco use disorder Diagnosis Claudication of right lower extremity (HCC) Peripheral vascular disease, unspecified Diagnosis Lung mass Swelling, mass, or lump in chest Diagnosis Lung mass Swelling, mass, or lump in chest Advance Directives No Advanced Directives Records FoundDocuments on File Type Date Recorded 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 ACP-Advance Directive ACP-Power of Patient Admitting Representative Documents on File Type Date Recorded 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 ACP-Advance Directive ACP-Power of Patient Admitting Representative Documents on File Type Date Recorded 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 Advance Directives and Living Will Power of Patient Admitting Representative Latest Code Status on File Code Status [...] Code 03/12/2021 10:12 AM 03/12/2021 4:58 PM Advance Directive Response Recorded Date/ Time Advance Directives Yes March 11, 2022 9:55am Living Will No March 11, 2022 9: 55am Power of Patient Admitting Representative No March 11, 2022 9:55am Advance Directive Response Recorded Date/ Time Advance Directives on File Yes 2021 10:09am Name of Medical Power of Patient Admitting Representative Haylie August 12, 2022 10:09am Advance Directives Yes August 12, 2022 10:09am Living Will No August 12 10:09am Power of Patient Admitting Representative No August 12, 10:09am Advance Directive Response Recorded Date/ Time Advance Directives on File Yes Dece2021 10:15am Name of Medical Power of Patient Admitting Representative Haylie October 14, 2022 10:15am Advance Directives Yes October 14, 2022 10:15am Living Will No October 14 10:15am Power of Patient Admitting Representative No October 14, 2022 10:15am Advance Directive Response Recorded Date/ Time Advance Directives on File Yes Decem 2021 1:07pm Name of Medical Power of Patient Admitting Representative Haylie November 04, 2022 1:07pm Advance Directives Yes October 1:07pm Living Will No November 19 4:41pm Power of Patient Admitting Representative No November 19, 2022 4:41pm Advance Directive Response Recorded Date/ Time Advance Directives on File Yes Decem 2021 1:07pm Name of Medical Power of Patient Admitting Representative Haylie November 04, 2022 1:07pm Name of Medical Power of Patient Admitting Representative Haylie Celisstefany lam November 19, 2022 9:24pm Advance Directives Yes October 1:07pm Living Will Yes November 19 9:24pm Power of Patient Admitting Representative Yes November 19, 2022 9:24pm Advance Directive Response Recorded Date/ Time Advance Directives on File Yes Jose Manuel machuca 2022 10:00am Name of Medical Power of Patient Admitting Representative Haylie December 16, 2022 10:00am Advance Directives Yes December 16, 2022 10:00am Living Will Yes December 16 10:00am Power of Patient Admitting Representative Yes December 16, 2022 10:00am Name of Medical Power of Patient Admitting Representative aHylie Pandya n November 19, 2022 9:24pm Advance Directive Response Recorded Date/ Time Advance Directives on File Yes Jose Manuel [email or web address] 10:56am Name of Medical Power of Patient Admitting Representative Haylie January 06, 2023 10:56am Advance Directives Yes December 10:56am Living Will Yes January 06, 023 10:56am Power of Patient Admitting Representative Yes January 06, 2023 10:56am Name of Medical Power of Patient Admitting Representative Haylie Pandya n November 19, 2022 9:24pm Advance Directive Response Recorded Date/ Time Advance Directives on File Yes Jose Manuel 2022 11:56am Name of Medical Power of Patient Admitting Representative Haylie January 06, 2023 11:56am Advance Directives Yes December 11:56am Living Will Yes January 06, 023 11:56am Power of Patient Admitting Representative Yes January 06, 2023 11:56am Name of Medical Power of Patient Admitting Representative Haylie Pandya n November 19, 2022 10:24pm Advance Directive Response Recorded Date/ Time Advance Directives on File Yes March 172022 11:03am Name of Medical Power of Patient Admitting Representative Haylie March 17, 2023 11:03am Advance Directives Yes March 17, 2023 11:03am Living Will Yes March 17, 2023 11 :03am Power of Patient Admitting Representative Yes March 17, 2023 11:03am Name of Medical Power of Patient Admitting Representative Haylie Pandya n November 19, 2022 10:24pm Advance Directive Response Recorded Date/ Time Advance Directives on File Yes March 112022 10:45am Name of Medical Power of Patient Admitting Representative Haylie April 08, 2023 10:45am Name of Medical Power of Patient Admitting Representative March 19, 2023 4:10pm Advance Directives Yes April 08 10:45am Living Will No May 02, 2023 11:13am Power of Patient Admitting Representative No May 02 11:13am Advance Directive Response Recorded Date/ Time Advance Directives on File Yes March 112022 10:45am Name of Medical Power of Patient Admitting Representative Haylie April 08, 2023 10:45am Name of Medical Power of Patient Admitting Representative March 19, 2023 4:10pm Advance Directives Yes April 08 10:45am Living Will No May 02, 2023 4:57pm Power of Patient Admitting Representative No May 02 4:57pm Advance Directive Response Recorded Date/ Time Advance Directives on File Yes Augus t 2022 2:24pm Name of Medical Power of Patient Admitting Representative Haylie June 17, 2023 2:24pm Advance Directives Yes June 17, 023 2:24pm Living Will No June 17, 2023 2:24pm Power of Patient Admitting Representative No June 17 2:24pm Name of Medical Power of Patient Admitting Representative March 19, 2023 4:10pm Advance Directive Response Recorded Date/ Time Advance Directives on File Yes 2022 10:32am Name of Medical Power of Patient Admitting Representative Haylie August 26, 2023 10:32am Advance Directives Yes August 26, 2023 10:32am Living Will No August 26 10:32am Power of Patient Admitting Representative No August 26, 2023 10:32am Advance Directive Response Recorded Date/ Time Advance Directives on File Yes 2022 11:05am Name of Medical Power of Patient Admitting Representative Haylie October 07, 2023 11:05am Advance Directives Yes September 11:05am Living Will No October 07, 023 11:05am Power of Patient Admitting Representative No October 07, 2023 11:05am Advance Directive Response Recorded Date/ Time Advance Directives on File Yes 2022 11:05am Name of Medical Power of Patient Admitting Representative Haylie October 07, 2023 11:05am Advance Directives Yes September 11:05am Living Will No October 18 023 9:56am Power of Patient Admitting Representative No October 18, 2023 9:56am Advance Directive Response Recorded Date/ Time Advance Directives on File Yes 2023 12:35pm Name of Medical Power of Patient Admitting Representative Haylie December 30, 2023 12:35pm Advance Directives Yes December 12:35pm Living Will No December 30 024 12:35pm Power of Patient Admitting Representative No December 30, 2023 12:35pm Advance Directive Response Recorded Date/ Time Advance Directives on File Yes January 13, 2024 2:23pm Name of Medical Power of Patient Admitting Representative Haylie January 13, 2024 2:23pm Advance Directives Yes January 12 2:23pm Living Will No January 13, 2024 2:23pm Power of Patient Admitting Representative No January 12 2:23pm Advance Directive Response Recorded Date/ Time Advance Directives on File Yes March 02, 2024 11:52am Name of Medical Power of Patient Admitting Representative Haylie March 02, 2024 11:52am Advance Directives Yes March 02 024 11:52am Living Will No March 02, 2024 11:52am Power of Patient Admitting Representative No March 02 11:52am Advance Directive Response Recorded Date/ Time Advance Directives on File Yes March 07, 2024 9:55am Name of Medical Power of Patient Admitting Representative Haylie March 07, 2024 9:55am Advance Directives Yes March 07 9:55am Living Will No March 08, 2024 4:20pm Power of Patient Admitting Representative No March 08 4:20pm Advance Directive Response Recorded Date/ Time Advance Directives on File Yes 2024 12:19pm Living Will No December 21 025 12:19pm Do you have a Healthcare Power of Patient Admitting Representative? No December 21, 2024 12:19pm Name of Medical Power of Patient Admitting Representative Haylie December 21, 2024 12:19pm Living Will No December 14 11:58pm Do you have a Healthcare Power of Patient Admitting Representative? No December 14, 2024 11:58pm Living Will No January 07, 2025 3:24am Do you have a Healthcare Power of Patient Admitting Representative? No January 07, 2025 3:24am Living Will No January 10, 2025 5:41pm Do you have a Healthcare Power of Patient Admitting Representative? No January 10, 2025 5:41pm Do you have a Healthcare Power of Patient Admitting Representative? No March 21, 2025 10:38am Advance Directives Yes January 19 10:31am Advance Directive Response Recorded Date/ Time Advance Directives on File Yes Jose Manuel [email or web address] 12:19pm Living Will No December 21 12:19pm Do you have a Healthcare Power of Patient Admitting Representative? No December 21, 2024 12:19pm Name of Medical Power of Patient Admitting Representative Haylie December 21, 2024 12:19pm Living Will No December 14 11:58pm Do you have a Healthcare Power of Patient Admitting Representative? No December 14, 2024 11:58pm Living Will No January 07, 2025 3:24am Do you have a Healthcare Power of Patient Admitting Representative? No January 07, 2025 3:24am Living Will No January 10, 2025 5:41pm Do you have a Healthcare Power of Patient Admitting Representative? No January 10, 2025 5:41pm Do you have a Healthcare Power of Patient Admitting Representative? No March 21, 2025 5:55pm Advance Directives Yes January 19 10:31am Advance Directive Response Recorded Date/ Time Advance Directives on File Yes April 12, 2025 1:55pm Living Will No April 12, 2025 1 :55pm Do you have a Healthcare Power of Patient Admitting Representative? No April 12, 2025 1:55pm Name of Medical Power of Patient Admitting Representative Haylie April 12, 2025 1:55pm Advance Directives Yes April 12 1:55pm Living Will No December 14 11:58pm Do you have a Healthcare Power of Patient Admitting Representative? No December 14, 2024 11:58pm Living Will No January 07, 2025 3:24am Do you have a Healthcare Power of Patient Admitting Representative? No January 07, 2025 3:24am Living Will No January 10, 2025 5:41pm Do you have a Healthcare Power of Patient Admitting Representative? No January 10, 2025 5:41pm Do you have a Healthcare Power of Patient Admitting Representative? No March 21, 2025 5:55pm Advance Directive Response Recorded Date/ Time Advance Directives on File Yes April 12, 2025 1:55pm Living Will No April 12, 2025 1 :55pm Do you have a Healthcare Power of Patient Admitting Representative? No April 12, 2025 1:55pm Name of Medical Power of Patient Admitting Representative Haylie April 12, 2025 1:55pm Advance Directives Yes April 12 1:55pm Living Will No January 07, 2025 3:24am Do you have a Healthcare Power of Patient Admitting Representative? No January 07, 2025 3:24am Living Will No January 10, 2025 5:41pm Do you have a Healthcare Power of Patient Admitting Representative? No January 10, 2025 5:41pm Do you have a Healthcare Power of Patient Admitting Representative? No March 21, 2025 5:55pm Advance Directive Response Recorded Date/ Time Advance Directives on File Yes April 12, 2025 1:55pm Living Will No April 12, 2025 1 :55pm Do you have a Healthcare Power of Patient Admitting Representative? No April 12, 2025 1:55pm Name of Medical Power of Patient Admitting Representative Haylie April 12, 2025 1:55pm Advance Directives Yes April 12 1:55pm Do you have a Healthcare Power of Patient Admitting Representative? No March 21, 2025 5:55pm Advance Directive Response Recorded Date/ Time Living Will No May 25, 2024 11:42am Do you have a Healthcare Power of Patient Admitting Representative? No May 25, 2024 11:42am Advance Directives on File Yes May 24, 2025 11:42am Living Will No May 24, 2025 11:42am Do you have a Healthcare Power of Patient Admitting Representative? No May 24, 2025 11:42am Name of Medical Power of Patient Admitting Representative Haylie May 24, 2025 11:42am Advance Directives Yes May 24 11:42am Do you have a Healthcare Power of Patient Admitting Representative? No March 21, 2025 5:55pm Advance Directive Response Recorded Date/ Time Living Will No May 25, 2024 11:42am Do you have a Healthcare Power of Patient Admitting Representative? No May 25, 2024 11:42am Advance Directives on File Yes 2024 12:46pm Living Will No June 15, 2025 12:46pm Do you have a Healthcare Power of Patient Admitting Representative? No June 15, 2025 12:46pm Name of Medical Power of Patient Admitting Representative Haylie June 15, 2025 12:46pm Advance Directives Yes June 15 12:46pm Do you have a Healthcare Power of Patient Admitting Representative? No March 21, 2025 5:55pm Advance Directive Response Recorded Date/ Time Living Will No May 25, 2024 11:42am Do you have a Healthcare Power of Patient Admitting Representative? No May 25, 2024 11:42am Advance Directives on File Yes 2024 2:23pm Living Will No July 05 2:23pm Do you have a Healthcare Power of Patient Admitting Representative? No July 05, 2025 2:23pm Name of Medical Power of Patient Admitting Representative Haylie July 05, 2025 2:23pm Advance Directives Yes July 05, 2025 2:23pm Do you have a Healthcare Power of Patient Admitting Representative? No March 21, 2025 5:55pm Advance Directive Response Recorded Date/ Time Living Will No May 25, 2024 11:42am Do you have a Healthcare Power of Patient Admitting Representative? No May 25, 2024 11:42am Advance Directives on File Yes 2024 2:23pm Living Will No July 05 2:23pm Do you have a Healthcare Power of Patient Admitting Representative? No July 05, 2025 2:23pm Name of Medical Power of Patient Admitting Representative Haylie July 05, 2025 2:23pm Advance Directives Yes July 05, 2025 2:23pm Advance Directive Response Recorded Date/ Time Living Will No May 25, 2024 11:42am Do you have a Healthcare Power of Patient Admitting Representative? No May 25, 2024 11:42am Advance Directives on File Yes 2024 12:41pm Living Will No August 16 12:41pm Do you have a Healthcare Power of Patient Admitting Representative? No August 16, 2025 12:41pm Name of Medical Power of Patient Admitting Representative Haylie August 16, 2025 12:41pm Advance Directives Yes August 16, 2025 12:41pm Do you have a Healthcare Power of Patient Admitting Representative? No August 19, 2025 7:33pm Reason for Referral Status Reason Specialty Diagnoses / Procedures Referre d By Contact Referred To Contact Closed Radiology Diagnoses Smoker Procedures CT lung screen [Initial/Annual] Jacob Jennings, DO [address] [place] [address] Status Reason Specialty Diagnoses / Procedures Referre d By Contact Referred To Contact Open Radiology Diagnoses Claudication of right lower extremity (HCC) Procedures VL Arterial PVR Lower w Exercise Jacob Jennings, DO [address] [place] [address] Status Reason Specialty Diagnoses / Procedures Referre d By Contact Referred To Contact Open Radiology Diagnoses Lung mass Procedures PET CT SKULL BASE TO MID THIGH Jose Miguel Foster MD [address] [place] [address] Status Reason Specialty Diagnoses / Procedures Re ferred By Contact Referred To Contact Open Radiology Diagnoses PRES (posterior reversible encephalopathy syndrome) Seizure (HCC) Procedures MRI BRAIN W WO CONTRAST Esthela Garcia APRN - [employer] [address] [place] [address] Specialty Diagnoses / Procedures Referred By Contac t Referred To Contact MR IMAGING Diagnoses 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 Procedures MRI BRAIN WO/W IVCON MRI BRAIN BRAIN STEM W/O W/CONTRAST MATERIAL Kesha Dey, LEXI.[employer] [address] [facility] [place] [address] Mr Imaging Referral ID Status Reason Start Date Expiration Date V isits Requested Visits Authorized [id number] Closed Auto-Generate d Referral 05/29/2023 06/27/2024 1 1 Referral ID Status Reason Start Date Expiration Date Visits Requested Visits Authorized [id number] Authorized Auto-Generat ed Referral 06/09/2023 07/08/2024 1 1 Specialty Diagnoses / Procedures Referred By Contac t Referred To Contact MR IMAGING Diagnoses Metastatic cancer to brain (HCC) Procedures MRI BRAIN WO/W IVCON MRI BRAIN BRAIN STEM W/O W/CONTRAST MATERIAL Francois Acevedo MD [address] [facility] [place] [address] Mr Imaging [facility] Referral ID Status Reason Start Date Expiration Date Visits Requested Visits Authorized [id number] Authorized Auto-Generat ed Referral 08/07/2023 09/05/2024 1 1 Specialty Diagnoses / Procedures Referred By Contac t Referred To Contact MR IMAGING Diagnoses Metastatic cancer to brain (HCC) Procedures MRI BRAIN WO/W IVCON MRI BRAIN BRAIN STEM W/O W/CONTRAST MATERIAL Kesha Dey APRN.[employer] [address] [facility] [address] Mr Imaging [place] [address] Referral ID Status Reason Start Date Expiration Date Visits Requested Visits Authorized [id number] Pending Review Auto-Generat ed Referral 11/18/2024 1 1 Referral ID Status Reason Start Date Expiration Date V isits Requested Visits Authorized [id number] Closed Auto-Generate d Referral 11/17/2023 12/16/2024 1 1 Referral ID Status Reason Start Date Expiration Date Visits Requested Visits Authorized [id number] Authorized Auto-Generat ed Referral 02/19/2024 03/20/2025 1 1 Referral ID Status Reason Start Date Expiration Date V isits Requested Visits Authorized [id number] Closed Auto-Generate d Referral 02/19/2024 03/20/2025 1 1 Specialty Diagnoses / Procedures Referred By Contac t Referred To Contact MR IMAGING Diagnoses Metastatic cancer to brain (HCC) Secondary malignant neoplasm of brain (HCC) Procedures MRI BRAIN WO/W IVCON MRI BRAIN BRAIN STEM W/O W/CONTRAST MATERIAL Kesha Dey [employer] [address] [facility] [address] Mr Imaging [facility] Referral ID Status Reason Start Date Expiration Date Visits Requested Visits Authorized [id number] Authorized Auto-Generat ed Referral 05/20/2024 06/19/2025 1 1 Referral ID Status Reason Start Date Expiration Date V isits Requested Visits Authorized [id number] Closed Auto-Generate d Referral 05/20/2024 06/19/2025 1 1 Specialty Diagnoses / Procedures Referred By Contac t Referred To Contact MR IMAGING Diagnoses Secondary malignant neoplasm of brain (HCC) Procedures MRI BRAIN WO/W IVCON MRI BRAIN BRAIN STEM W/O W/CONTRAST MATERIAL Francois Acevedo MD [address] [facility] [address] [place] [address] Referral ID Status Reason Start Date Expiration Date Visits Requested Visits Authorized [id number] Authorized Auto-Generat ed Referral 11/18/2024 12/18/2025 1 1 History of Present Illness * [...] Purpose Family History No Family History Records Found Relationship Condition Age at Onset Recorded Date/T michael sister Diabetes mellitus Unknown Coronary artery disease Unknown mother Cerebrovascular accident (CVA) Unknown Malignant neoplasm of lung Unknown father Coronary artery disease Unknown brother Coronary artery disease Unknown Chief Complaint and Reason for Visit Chief Complaint F/U - LABS - KEYTRUD A 1 WK - LABS - KEYTRUDA ABD BLOATING, SECONDARY RENAL CELL CARCINOMA 3WKS LABS KEYTRUDA 3WKS LABS KEYTRUDA 3WKS LABS KEYTRUDA 3 WKS - LABS - KEYTRUDA 6mo f/u F/U KIDNEY CANCER 3 WKS - LABS - KEYTRUDA - REVIEW CT SCANS LABS Reason for Visit ELANA (acute kidney in jury) Cancer of lower lobe of right lung Cancer of right kidney Drug rash Itching 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 ELANA (acute kidney injury) Cancer of lower lobe of right lung Cancer of right kidney Drug rash Encounter for immunotherapy 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 of lower lobe of right lung Cancer of right kidney Drug rash 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 of lower lobe of right lung Cancer of right kidney Encounter for immunotherapy 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 of lower lobe of right lung Cancer of right kidney Encounter for immunotherapy 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 of lower lobe of right lung Cancer of right kidney Drug rash 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 Essential (primary) hypertension Nonrheumatic aortic (valve) stenosis with insufficiency History of coronary artery stent placement Cancer of lower lobe of right lung Cancer of right kidney Drug rash 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 Anemia History of primary malignant neoplasm of left kidney Chief Complaint F/U KIDNEY CANCER 3 WKS - LABS - KEYTRUDA 3 WKS - LABS - KEYTRUDA 3 WKS - LABS - KEYTRUDA COVID TEST 1 WK - LABS - KEYTRUDA 5 M FU 3 WKS - LABS - KEYTRUDA 3 WKS - LABS - KEYTRUDA LABS Malignant neoplasm of right renal pelvis REVIEW CT SCANS Reason for Visit Cancer of lower lobe of right lung Cancer of right kidney 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 Anemia Drug rash History of primary malignant neoplasm of left kidney Iron deficiency anemia due to chronic blood loss Cancer of lower lobe of right lung Cancer of right kidney 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 Anemia Drug rash History of primary malignant neoplasm of left kidney Iron deficiency anemia due to chronic blood loss Cancer of lower lobe of right lung Cancer of right kidney Fever 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 Anemia Drug rash History of primary malignant neoplasm of left kidney Iron deficiency anemia due to chronic blood loss Fatigue Cancer of lower lobe of right lung Cancer of right kidney 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 Anemia Drug rash History of primary malignant neoplasm of left kidney Iron deficiency anemia due to chronic blood loss Essential (primary) hypertension Metastatic renal cell carcinoma to lung Nonrheumatic aortic (valve) stenosis with insufficiency History of coronary artery stent placement Cancer of lower lobe of right lung Cancer of right kidney Encounter for immunotherapy 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 Drug rash History of primary malignant neoplasm of left kidney Iron deficiency anemia due to chronic blood loss Cancer of lower lobe of right lung Cancer of right kidney Encounter for immunotherapy Epistaxis 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 Drug rash History of primary malignant neoplasm of left kidney Iron deficiency anemia due to chronic blood loss Cancer of lower lobe of right lung Cancer of right kidney 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 Anemia Drug rash History of primary malignant neoplasm of left kidney Iron deficiency anemia due to chronic blood loss Chief Complaint 3 WKS - LABS - KEYTR UDA 3 WKS - LABS - KEYTRUDA COVID TEST 1 WK - LABS - KEYTRUDA 5 M FU 3 WKS - LABS - KEYTRUDA 3 WKS - LABS - KEYTRUDA Malignant neoplasm of right renal pelvis REVIEW CT SCANS 3WKS LABS REVIEW CT KEYTRUDA 3 WKS - LABS - KEYTRUDA LABS HEADACHE Consult Reason for Visit Cancer of lower lobe of right lung Cancer of right kidney 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 Drug rash History of primary malignant neoplasm of left kidney Iron deficiency anemia due to chronic blood loss Anemia Cancer of lower lobe of right lung Cancer of right kidney Fever 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 Drug rash History of primary malignant neoplasm of left kidney Iron deficiency anemia due to chronic blood loss Anemia Fatigue Cancer of lower lobe of right lung Cancer of right kidney 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 Drug rash History of primary malignant neoplasm of left kidney Iron deficiency anemia due to chronic blood loss Anemia Essential (primary) hypertension Metastatic renal cell carcinoma to lung Nonrheumatic aortic (valve) stenosis with insufficiency History of coronary artery stent placement Cancer of lower lobe of right lung Cancer of right kidney Encounter for immunotherapy 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 Drug rash History of primary malignant neoplasm of left kidney Iron deficiency anemia due to chronic blood loss Cancer of lower lobe of right lung Cancer of right kidney Encounter for immunotherapy Epistaxis 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 Drug rash History of primary malignant neoplasm of left kidney Iron deficiency anemia due to chronic blood loss Cancer of lower lobe of right lung Cancer of right kidney 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 Drug rash History of primary malignant neoplasm of left kidney Iron deficiency anemia due to chronic blood loss Anemia Cancer of lower lobe of right lung Cancer of right kidney 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 Drug rash History of primary malignant neoplasm of left kidney Cancer of lower lobe of right lung Cancer of right kidney Encounter for immunotherapy Frequent headaches 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 Drug rash 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 Chief Complaint 1 WK - LABS - KEYTRU DA 5 M FU 3 WKS - LABS - KEYTRUDA 3 WKS - LABS - KEYTRUDA Malignant neoplasm of right renal pelvis REVIEW CT SCANS 3WKS LABS REVIEW CT KEYTRUDA 3 WKS - LABS - KEYTRUDA HEADACHE Consult 3 WKS - LABS - KEYTRUDA 1WK F/U LABS LABS HYPOXIA DUE TO COMMUNITY ACQURIE PNEUMONIA Reason for Visit Cancer of lower lobe of right lung Cancer of right kidney 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 Drug rash History of primary malignant neoplasm of left kidney Iron deficiency anemia due to chronic blood loss Anemia Essential (primary) hypertension Metastatic renal cell carcinoma to lung Nonrheumatic aortic (valve) stenosis with insufficiency History of coronary artery stent placement Cancer of lower lobe of right lung Cancer of right kidney Encounter for immunotherapy 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 Drug rash History of primary malignant neoplasm of left kidney Iron deficiency anemia due to chronic blood loss Cancer of lower lobe of right lung Cancer of right kidney Encounter for immunotherapy Epistaxis 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 Drug rash History of primary malignant neoplasm of left kidney Iron deficiency anemia due to chronic blood loss Cancer of lower lobe of right lung Cancer of right kidney 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 Drug rash History of primary malignant neoplasm of left kidney Iron deficiency anemia due to chronic blood loss Anemia Cancer of lower lobe of right lung Cancer of right kidney 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 Drug rash History of primary malignant neoplasm of left kidney Cancer of lower lobe of right lung Cancer of right kidney Encounter for immunotherapy Frequent headaches 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 Drug rash 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 Cancer of right kidney Encounter for immunotherapy 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 Cancer of lower lobe of right lung Cancer of right kidney 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 Sinus congestion History of primary malignant neoplasm of left kidney Cancer of lower lobe of right lung History of lobectomy of lung Hypoxia Pneumonia History of primary malignant neoplasm of left kidney Chief Complaint 5 M FU 3 WKS - LABS - KEYTRUDA 3 WKS - LABS - KEYTRUDA Malignant neoplasm of right renal pelvis REVIEW CT SCANS 3WKS LABS REVIEW CT KEYTRUDA 3 WKS - LABS - KEYTRUDA HEADACHE Consult 3 WKS - LABS - KEYTRUDA 1WK F/U LABS LABS HYPOXIA DUE TO COMMUNITY ACQURIE PNEUMONIA HYPOXIA DUE TO COMMUNITY ACQURIE PNEUMONIA HYPOXIA DUE TO COMMUNITY ACQURIE PNEUMONIA Reason for Visit Essential (primary) hypertension Metastatic renal cell carcinoma to lung Nonrheumatic aortic (valve) stenosis with insufficiency History of coronary artery stent placement Cancer of lower lobe of right lung Cancer of right kidney Encounter for immunotherapy 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 Drug rash History of primary malignant neoplasm of left kidney Iron deficiency anemia due to chronic blood loss Cancer of lower lobe of right lung Cancer of right kidney Encounter for immunotherapy Epistaxis 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 Drug rash History of primary malignant neoplasm of left kidney Iron deficiency anemia due to chronic blood loss Cancer of lower lobe of right lung Cancer of right kidney 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 Drug rash History of primary malignant neoplasm of left kidney Iron deficiency anemia due to chronic blood loss Anemia Cancer of lower lobe of right lung Cancer of right kidney 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 Drug rash History of primary malignant neoplasm of left kidney Cancer of lower lobe of right lung Cancer of right kidney Encounter for immunotherapy Frequent headaches 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 Drug rash 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 Cancer of right kidney Encounter for immunotherapy 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 Cancer of lower lobe of right lung Cancer of right kidney 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 Sinus congestion History of primary malignant neoplasm of left kidney Cancer of lower lobe of right lung History of lobectomy of lung Hypoxia Pneumonia History of primary malignant neoplasm of left kidney Chief Complaint Malignant neoplasm o f right renal pelvis REVIEW CT SCANS 3WKS LABS REVIEW CT KEYTRUDA 3 WKS - LABS - KEYTRUDA HEADACHE Consult 3 WKS - LABS - KEYTRUDA 1WK F/U LABS HYPOXIA DUE TO COMMUNITY ACQURIE PNEUMONIA HYPOXIA DUE TO COMMUNITY ACQURIE PNEUMONIA HYPOXIA DUE TO COMMUNITY ACQURIE PNEUMONIA [facility] FU 3 WKS - LABS - KEYTRUDA 3 WKS - LABS - KEYTRUDA LABS BRAIN METS, NEW SYMPTOMS SOB, NICOTINE DEPENDENCE SOB, NICOTINE DEPENDENCE SOB, NICOTINE DEPENDENCE SOB, NICOTINE DEPENDENCE Reason for Visit Cancer of right kidn ey 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 Drug rash Iron deficiency anemia due to chronic blood loss Anemia Cancer of right kidney 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 Drug rash Cancer of right kidney Encounter for immunotherapy Frequent headaches 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 Drug rash Brain metastasis Brain metastasis Cancer of right kidney Encounter for immunotherapy 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 Cancer of right kidney 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 Sinus congestion Hypoxia Nicotine dependence, cigarettes, in remission SOB (shortness of breath) Cancer of right kidney 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 Drug rash Cancer of right kidney Encounter for immunotherapy 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 Chief Complaint Malignant neoplasm o f right renal pelvis REVIEW CT SCANS 3WKS LABS REVIEW CT KEYTRUDA 3 WKS - LABS - KEYTRUDA HEADACHE Consult 3 WKS - LABS - KEYTRUDA 1WK F/U LABS HYPOXIA DUE TO COMMUNITY ACQURIE PNEUMONIA HYPOXIA DUE TO COMMUNITY ACQURIE PNEUMONIA HYPOXIA DUE TO COMMUNITY ACQURIE [facility]NEUMONIA [facility] FU 3 WKS - LABS - KEYTRUDA 3 WKS - LABS - KEYTRUDA BRAIN METS, NEW SYMPTOMS SOB, NICOTINE DEPENDENCE SOB, NICOTINE DEPENDENCE SOB, NICOTINE DEPENDENCE SOB, NICOTINE DEPENDENCE 6 wk FU 3 WKS - LABS - KEYTRUDA LABS Reason for Visit Cancer of right kidn ey Drug rash Iron deficiency anemia due to chronic blood loss 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 Anemia Cancer of right kidney Drug rash 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 Encounter for immunotherapy Frequent headaches Cancer of right kidney Drug rash 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 Encounter for immunotherapy Cancer of right kidney 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 Sinus congestion Cancer of right kidney 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 Hypoxia Nicotine dependence, cigarettes, in remission SOB (shortness of breath) Brain metastasis Cancer of right kidney Drug rash 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 Encounter for immunotherapy Brain metastasis Cancer of right kidney 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, cigarettes, in remission COPD (chronic obstructive pulmonary disease) Brain metastasis Cancer of right kidney Drug rash 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 Chief Complaint 3WKS LABS REVIEW CT KEYTRUDA 3 WKS - LABS - KEYTRUDA HEADACHE Consult 3 WKS - LABS - KEYTRUDA 1WK F/U LABS HYPOXIA DUE TO COMMUNITY ACQURIE PNEUMONIA HYPOXIA DUE TO COMMUNITY ACQURIE PNEUMONIA HYPOXIA DUE TO COMMUNITY ACQURIE PNEUMONIA [facility] FU 3 WKS - LABS - KEYTRUDA 3 WKS - LABS - KEYTRUDA BRAIN METS, NEW SYMPTOMS SOB, NICOTINE DEPENDENCE SOB, NICOTINE DEPENDENCE SOB, NICOTINE DEPENDENCE SOB, NICOTINE DEPENDENCE 6 wk FU 3 WKS - LABS - KEYTRUDA LABS ATHEROSCLEROTIC HEART DISEASE Reason for Visit Cancer of right kidn ey Drug rash 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 Encounter for immunotherapy Frequent headaches Cancer of right kidney Drug rash 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 Encounter for immunotherapy Cancer of right kidney 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 Sinus congestion Cancer of right kidney 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 Hypoxia Nicotine dependence, cigarettes, in remission SOB (shortness of breath) Brain metastasis Cancer of right kidney Drug rash 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 Encounter for immunotherapy Brain metastasis Cancer of right kidney 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, cigarettes, in remission COPD (chronic obstructive pulmonary disease) Brain metastasis Cancer of right kidney Drug rash 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 Chief Complaint 3 WKS - LABS - KEYTR UDA HEADACHE Consult 3 WKS - LABS - KEYTRUDA 1WK F/U LABS HYPOXIA DUE TO COMMUNITY ACQURIE PNEUMONIA HYPOXIA DUE TO COMMUNITY ACQURIE PNEUMONIA HYPOXIA DUE TO COMMUNITY ACQURIE [facility]NEUMONIA [facility] FU 3 WKS - LABS - KEYTRUDA 3 WKS - LABS - KEYTRUDA BRAIN METS, NEW SYMPTOMS SOB, NICOTINE DEPENDENCE SOB, NICOTINE DEPENDENCE SOB, NICOTINE DEPENDENCE SOB, NICOTINE DEPENDENCE 6 wk FU 3 WKS - LABS - KEYTRUDA LABS ATHEROSCLEROTIC HEART DISEASE TREATED BRAIN METS, COMPARE TO PRIOR STUDY 6 M FU review MRI from 01/21 Reason for Visit Encounter for immuno therapy Frequent headaches Cancer of right kidney Drug rash 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 Encounter for immunotherapy Cancer of right kidney 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 Sinus congestion Cancer of right kidney 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 Hypoxia Nicotine dependence, cigarettes, in remission SOB (shortness of breath) Brain metastasis Cancer of right kidney Drug rash 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 Encounter for immunotherapy Brain metastasis Cancer of right kidney 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, cigarettes, in remission COPD (chronic obstructive pulmonary disease) Brain metastasis Cancer of right kidney Drug rash 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 Essential (primary) hypertension Hyperlipidemia Metastatic renal cell carcinoma to lung Nonrheumatic aortic (valve) stenosis with insufficiency History of coronary artery stent placement Brain metastasis Chief Complaint HYPOXIA DUE TO COMMU NITY ACQURIE PNEUMONIA HYPOXIA DUE TO COMMUNITY ACQURIE PNEUMONIA HYPOXIA DUE TO COMMUNITY ACQURIE PNEUMONIA [facility] FU 3 WKS - LABS - KEYTRUDA 3 WKS - LABS - KEYTRUDA BRAIN METS, NEW SYMPTOMS SOB, NICOTINE DEPENDENCE SOB, NICOTINE DEPENDENCE SOB, NICOTINE DEPENDENCE SOB, NICOTINE DEPENDENCE 6 wk FU 3 WKS - LABS - KEYTRUDA ATHEROSCLEROTIC HEART DISEASE TREATED BRAIN METS, COMPARE TO PRIOR STUDY 6 M FU review MRI from 01/21 3 WKS - LABS - KEYTRUDA 3 WKS - LABS - KEYTRUDA 3 WKS - LABS - KEYTRUDA LT PARIETAL METS, EVAL FOR PROGRESSION LT PARIETAL METS, EVAL FOR PROGRESSION 3 WKS - LABS - KEYTRUDA(MUST HAVE EYE DR NOTE) LABS Reason for Visit Cancer of lower lobe of right lung Hypoxia Nicotine dependence, cigarettes, in remission SOB (shortness of breath) Cancer of lower lobe of right lung Brain metastasis Cancer of lower lobe of right lung Cancer of right kidney Drug rash 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 Encounter for immunotherapy Brain metastasis Cancer of right kidney 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, cigarettes, in remission Cancer of lower lobe of right lung COPD (chronic obstructive pulmonary disease) Brain metastasis Cancer of lower lobe of right lung Cancer of right kidney Drug rash 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 Essential (primary) hypertension Hyperlipidemia Metastatic renal cell carcinoma to lung Nonrheumatic aortic (valve) stenosis with insufficiency History of coronary artery stent placement 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 Cancer of right kidney Drug rash 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 Cancer of right kidney Drug rash Iron deficiency anemia due to chronic blood loss 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 Cancer of right kidney Iron deficiency anemia due to chronic blood loss 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 Cancer of right kidney Drug rash Iron deficiency anemia due to chronic blood loss 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 Chief Complaint 6 wk FU 3 WKS - LABS - KEYTRUDA ATHEROSCLEROTIC HEART DISEASE TREATED BRAIN METS, COMPARE TO PRIOR STUDY 6 M FU review MRI from 01/21 3 WKS - LABS - KEYTRUDA 3 WKS - LABS - KEYTRUDA 3 WKS - LABS - KEYTRUDA LT PARIETAL METS, EVAL FOR PROGRESSION LT PARIETAL METS, EVAL FOR PROGRESSION 3 WKS - LABS - KEYTRUDA(MUST HAVE EYE DR NOTE) SEIZURE Review MRI 03/30 2 M FU 3 WKS - LABS - KEYTRUDA 1 month f/u 3 WKS - LABS - KEYTRUDA LABS HYPOXIA/SOB Reason for Visit Nicotine dependence, cigarettes, in remission Cancer of lower lobe of right lung COPD (chronic obstructive pulmonary disease) Brain metastasis 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 Cancer of right kidney Drug rash 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 Essential (primary) hypertension Hyperlipidemia Metastatic renal cell carcinoma to lung Nonrheumatic aortic (valve) stenosis with insufficiency History of coronary artery stent placement 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 Cancer of right kidney Drug rash 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 Cancer of right kidney Drug rash Iron deficiency anemia due to chronic blood loss 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 Cancer of right kidney Iron deficiency anemia due to chronic blood loss 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 Cancer of right kidney Drug rash Iron deficiency anemia due to chronic blood loss 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 SOB (shortness of breath) Brain metastasis Cancer of lower lobe of right lung Cancer of right kidney Drug rash Iron deficiency anemia due to chronic blood loss 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 Cancer of right kidney Drug rash Iron deficiency anemia due to chronic blood loss 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 Hyperglycemia Hypoxemia Pneumonia Pulmonary emboli SOB (shortness of breath) Chief Complaint 3 WKS - LABS - KEYTR UDA ATHEROSCLEROTIC HEART DISEASE TREATED BRAIN METS, COMPARE TO PRIOR STUDY 6 M FU review MRI from 01/21 3 WKS - LABS - KEYTRUDA 3 WKS - LABS - KEYTRUDA 3 WKS - LABS - KEYTRUDA LT PARIETAL METS, EVAL FOR PROGRESSION LT PARIETAL METS, EVAL FOR PROGRESSION 3 WKS - LABS - KEYTRUDA(MUST HAVE EYE DR NOTE) SEIZURE Review MRI 03/30 2 M FU 3 WKS - LABS - KEYTRUDA 1 month f/u 3 WKS - LABS - KEYTRUDA LABS HYPOXIA/SOB HYPOXIA/SOB HYPOXIA/SOB HYPOXIA/SOB HYPOXIA/SOB HYPOXIA/SOB HYPOXIA/SOB HYPOXIA/SOB HYPOXIA/SOB HYPOXIA/SOB HYPOXIA/SOB Reason for Visit Brain metastasis Cancer of lower lobe of right lung Cancer of right kidney Drug rash 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 Essential (primary) hypertension Hyperlipidemia Metastatic renal cell carcinoma to lung Nonrheumatic aortic (valve) stenosis with insufficiency History of coronary artery stent placement 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 Cancer of right kidney Drug rash 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 Cancer of right kidney Drug rash Iron deficiency anemia due to chronic blood loss 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 Cancer of right kidney Iron deficiency anemia due to chronic blood loss 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 Cancer of right kidney Drug rash Iron deficiency anemia due to chronic blood loss 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 SOB (shortness of breath) Brain metastasis Cancer of lower lobe of right lung Cancer of right kidney Drug rash Iron deficiency anemia due to chronic blood loss 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 Cancer of right kidney Drug rash Iron deficiency anemia due to chronic blood loss 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 of lower lobe of right lung Brain metastasis Cancer of lower lobe of right lung Cancer of right kidney Drug rash History of primary malignant neoplasm of left kidney Iron deficiency anemia due to chronic blood loss 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 Cancer of right kidney Drug rash History of primary malignant neoplasm of left kidney Iron deficiency anemia due to chronic blood loss 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 Cancer of right kidney Drug rash History of primary malignant neoplasm of left kidney Iron deficiency anemia due to chronic blood loss 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 Cancer of right kidney Drug rash History of primary malignant neoplasm of left kidney Iron deficiency anemia due to chronic blood loss 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 Cancer of right kidney History of primary malignant neoplasm of left kidney Iron deficiency anemia due to chronic blood loss 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 Essential (primary) hypertension Hyperlipidemia Metastatic renal cell carcinoma to lung Nonrheumatic aortic (valve) stenosis with insufficiency History of coronary artery stent placement Brain metastasis Cancer of lower lobe of right lung Cancer of right kidney Drug rash History of primary malignant neoplasm of left kidney Iron deficiency anemia due to chronic blood loss 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 Cancer of right kidney Drug rash History of primary malignant neoplasm of left kidney Iron deficiency anemia due to chronic blood loss 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 Cancer of right kidney Drug rash History of primary malignant neoplasm of left kidney Iron deficiency anemia due to chronic blood loss 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 Cancer of right kidney History of primary malignant neoplasm of left kidney Iron deficiency anemia due to chronic blood loss 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 Essential (primary) hypertension Hyperlipidemia Metastatic renal cell carcinoma to lung Nonrheumatic aortic (valve) stenosis with insufficiency History of coronary artery stent placement Brain metastasis Cancer of lower lobe of right lung Cancer of right kidney Drug rash History of primary malignant neoplasm of left kidney Iron deficiency anemia due to chronic blood loss 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, cigarettes, in remission Cancer of lower lobe of right lung Brain metastasis Cancer of lower lobe of right lung Cancer of right kidney Drug rash History of primary malignant neoplasm of left kidney Iron deficiency anemia due to chronic blood loss 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 Cancer of right kidney Drug rash History of primary malignant neoplasm of left kidney Iron deficiency anemia due to chronic blood loss 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 Cancer of right kidney History of primary malignant neoplasm of left kidney Iron deficiency anemia due to chronic blood loss 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 Essential (primary) hypertension Hyperlipidemia Metastatic renal cell carcinoma to lung Nonrheumatic aortic (valve) stenosis with insufficiency History of coronary artery stent placement Brain metastasis Cancer of lower lobe of right lung Cancer of right kidney Drug rash History of primary malignant neoplasm of left kidney Iron deficiency anemia due to chronic blood loss 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, cigarettes, in remission Cancer of lower lobe of right lung Brain metastasis Cancer of lower lobe of right lung Cancer of right kidney Drug rash History of primary malignant neoplasm of left kidney Iron deficiency anemia due to chronic blood loss 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 Cancer of right kidney Drug rash History of primary malignant neoplasm of left kidney Iron deficiency anemia due to chronic blood loss 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 Chief Complaint 3WKS LABS KEYTRUDA RT KIDNEY CANCER 3WKS LABS KEYTRUDA neuro 3WKS LABS KEYTRUDA 3 WEEK, LABS, KEYTRUDA 3 M FU 3 WKS - LABS - KEYTRUDA Amb Documentation 3 WKS - LABS - KEYTRUDA hydration C64.1 6 M FU Reason for Visit Brain metastasis Cancer of lower lobe of right lung Cancer of right kidney Drug rash History of primary malignant neoplasm of left kidney Iron deficiency anemia due to chronic blood loss 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 Cancer of right kidney Drug rash History of primary malignant neoplasm of left kidney Iron deficiency anemia due to chronic blood loss 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 Cancer of right kidney 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 lower lobe of right lung Cancer of right kidney 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 COPD (chronic obstructive pulmonary disease) 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 metastasis Cancer of lower lobe of right lung Cancer of right kidney Drug rash History of primary malignant neoplasm of left kidney Iron deficiency anemia due to chronic blood loss 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 Numbness in right leg RUE numbness Brain metastasis Cancer of lower lobe of right lung Cancer of right kidney Drug rash History of primary malignant neoplasm of left kidney Iron deficiency anemia due to chronic blood loss 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 Essential (primary) hypertension Hyperlipidemia Metastatic renal cell carcinoma to lung Nonrheumatic aortic (valve) stenosis with insufficiency History of coronary artery stent placement Chief Complaint RT KIDNEY CANCER 3WKS LABS KEYTRUDA neuro 3WKS LABS KEYTRUDA 3 WEEK, LABS, KEYTRUDA 3 M FU 3 WKS - LABS - KEYTRUDA Amb Documentation 3 WKS - LABS - KEYTRUDA C64.1 6 M FU 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 Reason for Visit Brain metastasis Cancer of lower lobe of right lung Cancer of right kidney Drug rash History of primary malignant neoplasm of left kidney Iron deficiency anemia due to chronic blood loss 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 Cancer of right kidney 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 lower lobe of right lung Cancer of right kidney 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 COPD (chronic obstructive pulmonary disease) 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 metastasis Cancer of lower lobe of right lung Cancer of right kidney Drug rash History of primary malignant neoplasm of left kidney Iron deficiency anemia due to chronic blood loss 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 Numbness in right leg RUE numbness Brain metastasis Cancer of lower lobe of right lung Cancer of right kidney Drug rash History of primary malignant neoplasm of left kidney Iron deficiency anemia due to chronic blood loss 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 Essential (primary) hypertension Hyperlipidemia Metastatic renal cell carcinoma to lung Nonrheumatic aortic (valve) stenosis with insufficiency History of coronary artery stent placement Cervical myelopathy Chief Complaint 3 WEEK, LABS, KEYTRU DA 3 M FU 3 WKS - LABS - KEYTRUDA Amb Documentation 3 WKS - LABS - KEYTRUDA C64.1 6 M FU 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 3 WEEKS, LABS, [place] 3 WKS - LABS - KEYTRUDA CERVICAL SPINE EORDER cervical spine venofer LABS -KEYTRUDA Reason for Visit Brain metastasis Cancer of lower lobe of right lung Cancer of right kidney 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 COPD (chronic obstructive pulmonary disease) 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 metastasis Cancer of lower lobe of right lung Cancer of right kidney Drug rash History of primary malignant neoplasm of left kidney Iron deficiency anemia due to chronic blood loss 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 Numbness in right leg RUE numbness Brain metastasis Cancer of lower lobe of right lung Cancer of right kidney Drug rash History of primary malignant neoplasm of left kidney Iron deficiency anemia due to chronic blood loss 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 Essential (primary) hypertension Hyperlipidemia Metastatic renal cell carcinoma to lung Nonrheumatic aortic (valve) stenosis with insufficiency History of coronary artery stent placement Cervical myelopathy Brain metastasis Cancer of lower lobe of right lung Cancer of right kidney History of primary malignant neoplasm of left kidney 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 Cancer of right kidney History of primary malignant neoplasm of left kidney 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 Cervical myelopathy Cervical myelopathy Brain metastasis Cancer of lower lobe of right lung Cancer of right kidney Drug rash History of primary malignant neoplasm of left kidney Iron deficiency anemia due to chronic blood loss 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 Chief Complaint 3 WEEK, LABS, KEYTRU DA 3 M FU 3 WKS - LABS - KEYTRUDA Amb Documentation 3 WKS - LABS - KEYTRUDA C64.1 6 M FU 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 3 WEEKS, LABS, [place] 3 WKS - LABS - KEYTRUDA CERVICAL SPINE EORDER PREOP cervical spine LABS -KEYTRUDA Keytruda Anterior Cervical Fusion C3-4 and C4-5 Anterior Cervical Fusion C3-4 and C4-5 Anterior Cervical Fusion C3-4 and C4-5 Anterior Cervical Fusion C3-4 and C4-5 Anterior Cervical Fusion C3-4 and C4-5 Reason for Visit Brain metastasis Cancer of lower lobe of right lung Cancer of right kidney 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 COPD (chronic obstructive pulmonary disease) 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 metastasis Cancer of lower lobe of right lung Cancer of right kidney Drug rash History of primary malignant neoplasm of left kidney Iron deficiency anemia due to chronic blood loss 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 Numbness in right leg RUE numbness Brain metastasis Cancer of lower lobe of right lung Cancer of right kidney Drug rash History of primary malignant neoplasm of left kidney Iron deficiency anemia due to chronic blood loss 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 Essential (primary) hypertension Hyperlipidemia Metastatic renal cell carcinoma to lung Nonrheumatic aortic (valve) stenosis with insufficiency History of coronary artery stent placement Cervical myelopathy Brain metastasis Cancer of lower lobe of right lung Cancer of right kidney History of primary malignant neoplasm of left kidney 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 Cancer of right kidney History of primary malignant neoplasm of left kidney 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 Cervical myelopathy Cervical myelopathy Brain metastasis Cancer of lower lobe of right lung Cancer of right kidney Drug rash History of primary malignant neoplasm of left kidney Iron deficiency anemia due to chronic blood loss 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 Cervical myelopathy Essential hypertension S/P cervical spinal fusion Chief Complaint Admit Date PILL CAM November 29, 2024 8 :48am CONCERN FOR SINUS INFECTION November 9:31am HYPOXIA, COPD EXACERBATION December 14, 2024 9:13pm HYPOXIA, COPD EXACERBATION December 15, 2024 2:54pm HYPOXIA, COPD EXACERBATION December 16, 2024 2:48pm 3 WEEK LABS [place] December 21, 2024 8:47am diarrhea January 07, 2025 2:16 am fall January 10, 2025 1:24 pm DIARRHEA W/ DEHYDRATION AND SYNOPAL EPIS ODE January 10, 2025 1:50pm DIARRHEA W/ DEHYDRATION AND SYNOPAL EPIS ODE January 11, 2025 9:37am DIARRHEA W/ DEHYDRATION AND SYNOPAL EPIS ODE January 12, 2025 9:18am DIARRHEA W/ DEHYDRATION AND SYNOPAL EPIS ODE January 13, 2025 7:45am DIARRHEA W/ DEHYDRATION AND SYNOPAL EPIS ODE January 13, 2025 10:33am DIARRHEA W/ DEHYDRATION AND SYNOPAL EPIS ODE January 13, 2025 8:09pm DIARRHEA W/ DEHYDRATION AND SYNOPAL EPIS ODE January 14, 2025 7:09am DIARRHEA W/ DEHYDRATION AND SYNOPAL EPIS ODE January 15, 2025 7:21am DIARRHEA W/ DEHYDRATION AND SYNOPAL EPIS ODE January 16, 2025 8:08am DIARRHEA W/ DEHYDRATION AND SYNOPAL EPIS ODE January 17, 2025 10:55am DIARRHEA W/ DEHYDRATION AND SYNOPAL EPIS ODE January 17, 2025 4:34pm DIARRHEA W/ DEHYDRATION AND SYNOPAL EPIS ODE January 18, 2025 3:03pm 3WKS LABS [place] February 01, 2025 9:40am Hospital FU February 16, 2025 12: 53pm 6 WKS - LABS - KEYTRUDA?? March 15, 2025 9:31am hydration March 15, 2025 9:45am HYPOXIA PNA INTRACTABLE N/V March 21 4:55pm Reason for Visit Admit Date Acute sinusitis December 02, 2024 9 :31am Hyponatremia December 14, 2024 9 :13pm Hypoxia December 14, 2024 9 :13pm COPD exacerbation December 14, 2024 9 :13pm Brain metastasis December 21, 2024 8:47am Cancer of lower lobe of right lung Febru brigette 2024 8:47am Cancer of right kidney December 21 8:47am History of primary malignant neoplasm of left kidney December 21, 2024 8:47am Iron deficiency anemia due to chronic bl ood loss December 21, 2024 8:47am Malignant neoplasm of kidney metastatic to lung December 21, 2024 8:47am Metastasis to adrenal gland December 8:47am Regional lymph node metastasis present F ebruary 2024 8:47am Closed head injury January 10, 2025 1:50 pm Declining functional status January 10, 025 1:50pm Dehydration January 10, 2025 1:50 pm Brain metastasis January 10, 2025 1:50 pm Metastatic renal cell carcinoma to lung January 10, 2025 1:50pm Acute infective gastroenteritis January 1:50pm Hypoxemia January 10, 2025 1:50 pm Shock January 10, 2025 1:50 pm Brain metastasis February 01, 2025 9:4 0am Cancer of lower lobe of right lung February 01, 2025 9:40am Cancer of right kidney February 01, 2025 9:40am History of primary malignant neoplasm of left kidney February 01, 2025 9:40am Iron deficiency anemia due to chronic bl ood loss February 01, 2025 9:40am 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 February 01, 2025 9:40am Metastasis to adrenal gland February 01, 2025 9:40am Regional lymph node metastasis present M [facility] 2024 9:40am Anemia February 16, 2025 12: 53pm Brain metastasis March 15, 2025 9:31am Cancer of lower lobe of right lung March 152024 9:31am Cancer of right kidney March 15, 2025 9:3 1am History of primary malignant neoplasm of left kidney March 15, 2025 9:31am Iron deficiency anemia due to chronic bl ood loss March 15, 2025 9:31am 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 March 15, 2025 9:31am Metastasis to adrenal gland March 15 9:31am Regional lymph node metastasis present [facility] 2024 9:31am Dysphagia March 21, 2025 4:55p m Hypoxia March 21, 2025 4:55p m Pneumonia March 21, 2025 4:55p m Cancer of right kidney March 21, 2025 4: 55pm Chief Complaint Admit Date PILL CAM November 29, 2024 8 :48am CONCERN FOR SINUS INFECTION November 9:31am HYPOXIA, COPD EXACERBATION December 14, 2024 9:13pm HYPOXIA, COPD EXACERBATION December 15, 2024 2:54pm HYPOXIA, COPD EXACERBATION December 16, 2024 2:48pm 3 WEEK LABS [place] December 21, 2024 8:47am diarrhea January 07, 2025 2:16 am fall January 10, 2025 1:24 pm DIARRHEA W/ DEHYDRATION AND SYNOPAL EPIS ODE January 10, 2025 1:50pm DIARRHEA W/ DEHYDRATION AND SYNOPAL EPIS ODE January 11, 2025 9:37am DIARRHEA W/ DEHYDRATION AND SYNOPAL EPIS ODE January 12, 2025 9:18am DIARRHEA W/ DEHYDRATION AND SYNOPAL EPIS ODE January 13, 2025 7:45am DIARRHEA W/ DEHYDRATION AND SYNOPAL EPIS ODE January 13, 2025 10:33am DIARRHEA W/ DEHYDRATION AND SYNOPAL EPIS ODE January 13, 2025 8:09pm DIARRHEA W/ DEHYDRATION AND SYNOPAL EPIS ODE January 14, 2025 7:09am DIARRHEA W/ DEHYDRATION AND SYNOPAL EPIS ODE January 15, 2025 7:21am DIARRHEA W/ DEHYDRATION AND SYNOPAL EPIS ODE January 16, 2025 8:08am DIARRHEA W/ DEHYDRATION AND SYNOPAL EPIS ODE January 17, 2025 10:55am DIARRHEA W/ DEHYDRATION AND SYNOPAL EPIS ODE January 17, 2025 4:34pm DIARRHEA W/ DEHYDRATION AND SYNOPAL EPIS ODE January 18, 2025 3:03pm 3WKS LABS [place] February 01, 2025 9:40am Hospital FU February 16, 2025 12: 53pm 6 WKS - LABS - KEYTRUDA?? March 15, 2025 9:31am hydration March 15, 2025 9:45am HYPOXIA PNA INTRACTABLE N/V March 21 4:55pm HYPOXIA PNA INTRACTABLE N/V March 21 9:08pm HYPOXIA PNA INTRACTABLE N/V March 22 9:54am HYPOXIA PNA INTRACTABLE N/V March 22 5:38pm HYPOXIA PNA INTRACTABLE N/V March 23 1:40pm HYPOXIA PNA INTRACTABLE N/V March 23 6:37pm Reason for Visit Admit Date Acute sinusitis December 02, 2024 9 :31am Hyponatremia December 14, 2024 9 :13pm Hypoxia December 14, 2024 9 :13pm COPD exacerbation December 14, 2024 9 :13pm Brain metastasis December 21, 2024 8:47am Cancer of lower lobe of right lung Febru brigette 2024 8:47am Cancer of right kidney December 21 8:47am History of primary malignant neoplasm of left kidney December 21, 2024 8:47am Iron deficiency anemia due to chronic bl ood loss December 21, 2024 8:47am 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 December 21, 2024 8:47am Metastasis to adrenal gland December 8:47am Regional lymph node metastasis present F ebruary 2024 8:47am Closed head injury January 10, 2025 1:50 pm Declining functional status January 10, 2 025 1:50pm Dehydration January 10, 2025 1:50 pm Brain metastasis January 10, 2025 1:50 pm Metastatic renal cell carcinoma to lung January 10, 2025 1:50pm Acute infective gastroenteritis January 1:50pm Hypoxemia January 10, 2025 1:50 pm Shock January 10, 2025 1:50 pm Brain metastasis February 01, 2025 9:4 0am Cancer of lower lobe of right lung February 01, 2025 9:40am Cancer of right kidney February 01, 2025 9:40am History of primary malignant neoplasm of left kidney February 01, 2025 9:40am Iron deficiency anemia due to chronic bl ood loss February 01, 2025 9:40am 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 February 01, 2025 9:40am Metastasis to adrenal gland February 01, 2025 9:40am Regional lymph node metastasis present M [facility] 2024 9:40am Anemia February 16, 2025 12: 53pm Brain metastasis March 15, 2025 9:31am Cancer of lower lobe of right lung March 152024 9:31am Cancer of right kidney March 15, 2025 9:3 1am History of primary malignant neoplasm of left kidney March 15, 2025 9:31am Iron deficiency anemia due to chronic bl ood loss March 15, 2025 9:31am 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 March 15, 2025 9:31am Metastasis to adrenal gland March 15 9:31am Regional lymph node metastasis present [facility] 2024 9:31am Dysphagia March 21, 2025 4:55p m Hypoxia March 21, 2025 4:55p m Nausea & vomiting March 21, 2025 4:55p m Pneumonia March 21, 2025 4:55p m Cancer of right kidney March 21, 2025 4: 55pm Chief Complaint Admit Date PILL CAM November 29, 2024 8 :48am CONCERN FOR SINUS INFECTION November 9:31am HYPOXIA, COPD EXACERBATION December 14, 2024 9:13pm HYPOXIA, COPD EXACERBATION December 15, 2024 2:54pm HYPOXIA, COPD EXACERBATION December 16, 2024 2:48pm 3 WEEK LABS [place] December 21, 2024 8:47am diarrhea January 07, 2025 2:16 am fall January 10, 2025 1:24 pm DIARRHEA W/ DEHYDRATION AND SYNOPAL EPIS ODE January 10, 2025 1:50pm DIARRHEA W/ DEHYDRATION AND SYNOPAL EPIS ODE January 11, 2025 9:37am DIARRHEA W/ DEHYDRATION AND SYNOPAL EPIS ODE January 12, 2025 9:18am DIARRHEA W/ DEHYDRATION AND SYNOPAL EPIS ODE January 13, 2025 7:45am DIARRHEA W/ DEHYDRATION AND SYNOPAL EPIS ODE January 13, 2025 10:33am DIARRHEA W/ DEHYDRATION AND SYNOPAL EPIS ODE January 13, 2025 8:09pm DIARRHEA W/ DEHYDRATION AND SYNOPAL EPIS ODE January 14, 2025 7:09am DIARRHEA W/ DEHYDRATION AND SYNOPAL EPIS ODE January 15, 2025 7:21am DIARRHEA W/ DEHYDRATION AND SYNOPAL EPIS ODE January 16, 2025 8:08am DIARRHEA W/ DEHYDRATION AND SYNOPAL EPIS ODE January 17, 2025 10:55am DIARRHEA W/ DEHYDRATION AND SYNOPAL EPIS ODE January 17, 2025 4:34pm DIARRHEA W/ DEHYDRATION AND SYNOPAL EPIS ODE January 18, 2025 3:03pm 3WKS LABS [place] February 01, 2025 9:40am Hospital February 16, 2025 12: 53pm 6 WKS - LABS - KEYTRUDA?? March 15, 2025 9:31am HYPOXIA PNA INTRACTABLE N/V March 21 4:55pm HYPOXIA PNA INTRACTABLE N/V March 21 9:08pm HYPOXIA PNA INTRACTABLE N/V March 22 9:54am HYPOXIA PNA INTRACTABLE N/V March 22 5:38pm HYPOXIA PNA INTRACTABLE N/V March 23 1:40pm HYPOXIA PNA INTRACTABLE N/V March 23 6:37pm HYPOXIA PNA INTRACTABLE N/V March 24 5:17pm HYPOXIA PNA INTRACTABLE N/V March 24 5:37pm TOX CHECK - LABS March 29, 2025 10:30 am hydration March 29, 2025 10:45 am Reason for Visit Admit Date Acute sinusitis December 02, 2024 9 :31am Hyponatremia December 14, 2024 9 :13pm Hypoxia December 14, 2024 9 :13pm COPD exacerbation December 14, 2024 9 :13pm Brain metastasis December 21, 2024 8:47am Cancer of lower lobe of right lung Febru brigette 2024 8:47am Cancer of right kidney December 21 8:47am History of primary malignant neoplasm of left kidney December 21, 2024 8:47am Iron deficiency anemia due to chronic bl ood loss December 21, 2024 8:47am 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 December 21, 2024 8:47am Metastasis to adrenal gland December 8:47am Regional lymph node metastasis present F ebruary 2024 8:47am Closed head injury January 10, 2025 1:50 pm Declining functional status January 10, 025 1:50pm Dehydration January 10, 2025 1:50 pm Brain metastasis January 10, 2025 1:50 pm Metastatic renal cell carcinoma to lung January 10, 2025 1:50pm Acute infective gastroenteritis January 1:50pm Hypoxemia January 10, 2025 1:50 pm Shock January 10, 2025 1:50 pm Brain metastasis February 01, 2025 9:4 0am Cancer of lower lobe of right lung February 01, 2025 9:40am Cancer of right kidney February 01, 2025 9:40am History of primary malignant neoplasm of left kidney February 01, 2025 9:40am Iron deficiency anemia due to chronic bl ood loss February 01, 2025 9:40am 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 February 01, 2025 9:40am Metastasis to adrenal gland February 01, 2025 9:40am Regional lymph node metastasis present [facility] 2024 9:40am Anemia February 16, 2025 12: 53pm Brain metastasis March 15, 2025 9:31am Cancer of lower lobe of right lung March 152024 9:31am Cancer of right kidney March 15, 2025 9:3 1am History of primary malignant neoplasm of left kidney March 15, 2025 9:31am Iron deficiency anemia due to chronic bl ood loss March 15, 2025 9:31am 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 March 15, 2025 9:31am Metastasis to adrenal gland March 15 9:31am Regional lymph node metastasis present M [facility] 2024 9:31am Dysphagia March 21, 2025 4:55p m Hypoxia March 21, 2025 4:55p m Nausea & vomiting March 21, 2025 4:55p m Pneumonia March 21, 2025 4:55p m Cancer of right kidney March 21, 2025 4: 55pm Brain metastasis March 29, 2025 10:30 am Cancer of lower lobe of right lung March 102024 10:30am Cancer of right kidney March 29, 2025 10 :30am History of primary malignant neoplasm of left kidney March 29, 2025 10:30am Iron deficiency anemia due to chronic bl ood loss March 29, 2025 10:30am 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 March 29, 2025 10:30am Metastasis to adrenal gland March 29 10:30am Regional lymph node metastasis present M [facility] 2024 10:30am Chief Complaint Admit Date HYPOXIA, COPD EXACERBATION December 14, 2024 9:13pm HYPOXIA, COPD EXACERBATION December 15, 2024 2:54pm HYPOXIA, COPD EXACERBATION December 16, 2024 2:48pm 3 WEEK LABS [place] December 21, 2024 8:47am diarrhea January 07, 2025 2:16 am fall January 10, 2025 1:24 pm DIARRHEA W/ DEHYDRATION AND SYNOPAL EPIS ODE January 10, 2025 1:50pm DIARRHEA W/ DEHYDRATION AND SYNOPAL EPIS ODE January 11, 2025 9:37am DIARRHEA W/ DEHYDRATION AND SYNOPAL EPIS ODE January 12, 2025 9:18am DIARRHEA W/ DEHYDRATION AND SYNOPAL EPIS ODE January 13, 2025 7:45am DIARRHEA W/ DEHYDRATION AND SYNOPAL EPIS ODE January 13, 2025 10:33am DIARRHEA W/ DEHYDRATION AND SYNOPAL EPIS ODE January 13, 2025 8:09pm DIARRHEA W/ DEHYDRATION AND SYNOPAL EPIS ODE January 14, 2025 7:09am DIARRHEA W/ DEHYDRATION AND SYNOPAL EPIS ODE January 15, 2025 7:21am DIARRHEA W/ DEHYDRATION AND SYNOPAL EPIS ODE January 16, 2025 8:08am DIARRHEA W/ DEHYDRATION AND SYNOPAL EPIS ODE January 17, 2025 10:55am DIARRHEA W/ DEHYDRATION AND SYNOPAL EPIS ODE January 17, 2025 4:34pm DIARRHEA W/ DEHYDRATION AND SYNOPAL EPIS ODE January 18, 2025 3:03pm 3[facility] [place] REVIEW [place] February 01, 2025 9:40am Hospital FU February 16, 2025 12: 53pm 6 WKS - LABS - KEYTRUDA?? March 15, 2025 9:31am HYPOXIA PNA INTRACTABLE N/V March 21 4:55pm HYPOXIA PNA INTRACTABLE N/V March 21 9:08pm HYPOXIA PNA INTRACTABLE N/V March 22 9:54am HYPOXIA PNA INTRACTABLE N/V March 22 5:38pm HYPOXIA PNA INTRACTABLE N/V March 23 1:40pm HYPOXIA PNA INTRACTABLE N/V March 23 6:37pm HYPOXIA PNA INTRACTABLE N/V March 24 5:17pm HYPOXIA PNA INTRACTABLE N/V March 24 5:37pm TOX CHECK - LABS March 29, 2025 10:30 am Hospital March 30, 2025 10:02 am 3 WKS - LABS - KEYTRUDA April 12, 2025 1 2:29pm hydration April 12, 2025 12:30 pm Reason for Visit Admit Date Hyponatremia December 14, 2024 9 :13pm Hypoxia December 14, 2024 9 :13pm COPD exacerbation December 14, 2024 9 :13pm Brain metastasis December 21, 2024 8:47am Cancer of lower lobe of right lung Febru brigette 2024 8:47am Cancer of right kidney December 21 8:47am History of primary malignant neoplasm of left kidney December 21, 2024 8:47am Iron deficiency anemia due to chronic bl ood loss December 21, 2024 8:47am 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 December 21, 2024 8:47am Metastasis to adrenal gland December 8:47am Regional lymph node metastasis present F ebruary 2024 8:47am Closed head injury January 10, 2025 1:50 pm Declining functional status January 10, 2 025 1:50pm Dehydration January 10, 2025 1:50 pm Brain metastasis January 10, 2025 1:50 pm Metastatic renal cell carcinoma to lung January 10, 2025 1:50pm Acute infective gastroenteritis January 1:50pm Hypoxemia January 10, 2025 1:50 pm Shock January 10, 2025 1:50 pm Brain metastasis February 01, 2025 9:4 0am Cancer of lower lobe of right lung February 01, 2025 9:40am Cancer of right kidney February 01, 2025 9:40am History of primary malignant neoplasm of left kidney February 01, 2025 9:40am Iron deficiency anemia due to chronic bl ood loss February 01, 2025 9:40am 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 February 01, 2025 9:40am Metastasis to adrenal gland February 01, 2025 9:40am Regional lymph node metastasis present M [facility] 2024 9:40am Anemia February 16, 2025 12: 53pm Brain metastasis March 15, 2025 9:31am Cancer of lower lobe of right lung March 152024 9:31am Cancer of right kidney March 15, 2025 9:3 1am History of primary malignant neoplasm of left kidney March 15, 2025 9:31am Iron deficiency anemia due to chronic bl ood loss March 15, 2025 9:31am 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 March 15, 2025 9:31am Metastasis to adrenal gland March 15 9:31am Regional lymph node metastasis present M ay 2024 9:31am Dysphagia March 21, 2025 4:55p m Pneumonia March 21, 2025 4:55p m Cancer of right kidney March 21, 2025 4: 55pm Hypoxia March 21, 2025 4:55p m Nausea & vomiting March 21, 2025 4:55p m Brain metastasis March 29, 2025 10:30 am Cancer of lower lobe of right lung March 102024 10:30am Cancer of right kidney March 29, 2025 10 :30am History of primary malignant neoplasm of left kidney March 29, 2025 10:30am Iron deficiency anemia due to chronic bl ood loss March 29, 2025 10:30am 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 March 29, 2025 10:30am Metastasis to adrenal gland March 29 10:30am Regional lymph node metastasis present M ay 2024 10:30am Anemia March 30, 2025 10:02 am Brain metastasis April 12, 2025 12:29 pm Cancer of lower lobe of right lung April 12, 2025 12:29pm Cancer of right kidney April 12, 2025 12 :29pm History of primary malignant neoplasm of left kidney April 12, 2025 12:29pm Iron deficiency anemia due to chronic bl ood loss April 12, 2025 12:29pm 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 April 12, 2025 12:29pm Metastasis to adrenal gland April 12 12:29pm Regional lymph node metastasis present J 2024 12:29pm Chief Complaint Admit Date 3 WEEK LABS [place] December 21, 2024 8:47am diarrhea January 07, 2025 2:16 am fall January 10, 2025 1:24 pm DIARRHEA W/ DEHYDRATION AND SYNOPAL EPIS ODE January 10, 2025 1:50pm DIARRHEA W/ DEHYDRATION AND SYNOPAL EPIS ODE January 11, 2025 9:37am DIARRHEA W/ DEHYDRATION AND SYNOPAL EPIS ODE January 12, 2025 9:18am DIARRHEA W/ DEHYDRATION AND SYNOPAL EPIS ODE January 13, 2025 7:45am DIARRHEA W/ DEHYDRATION AND SYNOPAL EPIS ODE January 13, 2025 10:33am DIARRHEA W/ DEHYDRATION AND SYNOPAL EPIS ODE January 13, 2025 8:09pm DIARRHEA W/ DEHYDRATION AND SYNOPAL EPIS ODE January 14, 2025 7:09am DIARRHEA W/ DEHYDRATION AND SYNOPAL EPIS ODE January 15, 2025 7:21am DIARRHEA W/ DEHYDRATION AND SYNOPAL EPIS ODE January 16, 2025 8:08am DIARRHEA W/ DEHYDRATION AND SYNOPAL EPIS ODE January 17, 2025 10:55am DIARRHEA W/ DEHYDRATION AND SYNOPAL EPIS ODE January 17, 2025 4:34pm DIARRHEA W/ DEHYDRATION AND SYNOPAL EPIS ODE January 18, 2025 3:03pm [facility] [place] [facility] February 01, 2025 9:40am Hospital FU February 16, 2025 12: 53pm 6 WKS - LABS - KEYTRUDA?? March 15, 2025 9:31am HYPOXIA PNA INTRACTABLE N/V March 21 4:55pm HYPOXIA PNA INTRACTABLE N/V March 21 9:08pm HYPOXIA PNA INTRACTABLE N/V March 22 9:54am HYPOXIA PNA INTRACTABLE N/V March 22 5:38pm HYPOXIA PNA INTRACTABLE N/V March 23 1:40pm HYPOXIA PNA INTRACTABLE N/V March 23 6:37pm HYPOXIA PNA INTRACTABLE N/V March 24 5:17pm HYPOXIA PNA INTRACTABLE N/V March 24 5:37pm TOX CHECK - LABS March 29, 2025 10:30 am [facility] March 30, 2025 10:02 am 3 WKS - LABS - [facility]TRU[place] April 12, 2025 1 2:29pm hydration April 12, 2025 12:30 pm Reason for Visit Admit Date Brain metastasis December 21, 2024 8:47am Cancer of lower lobe of right lung Febru brigette 2024 8:47am Cancer of right kidney December 21 8:47am History of primary malignant neoplasm of left kidney December 21, 2024 8:47am Iron deficiency anemia due to chronic bl ood loss December 21, 2024 8:47am 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 December 21, 2024 8:47am Metastasis to adrenal gland December 8:47am Regional lymph node metastasis present F ebruary 2024 8:47am Closed head injury January 10, 2025 1:50 pm Declining functional status January 10, 025 1:50pm Dehydration January 10, 2025 1:50 pm Brain metastasis January 10, 2025 1:50 pm Metastatic renal cell carcinoma to lung January 10, 2025 1:50pm Acute infective gastroenteritis January 1:50pm Hypoxemia January 10, 2025 1:50 pm Shock January 10, 2025 1:50 pm Brain metastasis February 01, 2025 9:4 0am Cancer of lower lobe of right lung February 01, 2025 9:40am Cancer of right kidney February 01, 2025 9:40am History of primary malignant neoplasm of left kidney February 01, 2025 9:40am Iron deficiency anemia due to chronic bl ood loss February 01, 2025 9:40am 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 February 01, 2025 9:40am Metastasis to adrenal gland February 01, 2025 9:40am Regional lymph node metastasis present M [facility] 2024 9:40am Anemia February 16, 2025 12: 53pm Brain metastasis March 15, 2025 9:31am Cancer of lower lobe of right lung March 152024 9:31am Cancer of right kidney March 15, 2025 9:3 1am History of primary malignant neoplasm of left kidney March 15, 2025 9:31am Iron deficiency anemia due to chronic bl ood loss March 15, 2025 9:31am 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 March 15, 2025 9:31am Metastasis to adrenal gland March 15 9:31am Regional lymph node metastasis present M ay 2024 9:31am Dysphagia March 21, 2025 4:55p m Pneumonia March 21, 2025 4:55p m Cancer of right kidney March 21, 2025 4: 55pm Hypoxia March 21, 2025 4:55p m Nausea & vomiting March 21, 2025 4:55p m Brain metastasis March 29, 2025 10:30 am Cancer of lower lobe of right lung March 102024 10:30am Cancer of right kidney March 29, 2025 10 :30am History of primary malignant neoplasm of left kidney March 29, 2025 10:30am Iron deficiency anemia due to chronic bl ood loss March 29, 2025 10:30am 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 March 29, 2025 10:30am Metastasis to adrenal gland March 29 10:30am Regional lymph node metastasis present M ay 2024 10:30am Anemia March 30, 2025 10:02 am Brain metastasis April 12, 2025 12:29 pm Cancer of lower lobe of right lung April 12, 2025 12:29pm Cancer of right kidney April 12, 2025 12 :29pm History of primary malignant neoplasm of left kidney April 12, 2025 12:29pm Iron deficiency anemia due to chronic bl ood loss April 12, 2025 12:29pm 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 April 12, 2025 12:29pm Metastasis to adrenal gland April 12 12:29pm Regional lymph node metastasis present J [facility] 2024 12:29pm Chief Complaint Admit Date diarrhea January 07, 2025 2:16 am fall January 10, 2025 1:24 pm DIARRHEA W/ DEHYDRATION AND SYNOPAL EPIS ODE January 10, 2025 1:50pm DIARRHEA W/ DEHYDRATION AND SYNOPAL EPIS ODE January 11, 2025 9:37am DIARRHEA W/ DEHYDRATION AND SYNOPAL EPIS ODE January 12, 2025 9:18am DIARRHEA W/ DEHYDRATION AND SYNOPAL EPIS ODE January 13, 2025 7:45am DIARRHEA W/ DEHYDRATION AND SYNOPAL EPIS ODE January 13, 2025 10:33am DIARRHEA W/ DEHYDRATION AND SYNOPAL EPIS ODE January 13, 2025 8:09pm DIARRHEA W/ DEHYDRATION AND SYNOPAL EPIS ODE January 14, 2025 7:09am DIARRHEA W/ DEHYDRATION AND SYNOPAL EPIS ODE January 15, 2025 7:21am DIARRHEA W/ DEHYDRATION AND SYNOPAL EPIS ODE January 16, 2025 8:08am DIARRHEA W/ DEHYDRATION AND SYNOPAL EPIS ODE January 17, 2025 10:55am DIARRHEA W/ DEHYDRATION AND SYNOPAL EPIS ODE January 17, 2025 4:34pm DIARRHEA W/ DEHYDRATION AND SYNOPAL EPIS ODE January 18, 2025 3:03pm [facility] [place] [facility] February 01, 2025 9:40am Hospital February 16, 2025 12: 53pm 6 WKS - LABS - KEYTRUDA?? March 15, 2025 9:31am HYPOXIA PNA INTRACTABLE N/V March 21 4:55pm HYPOXIA PNA INTRACTABLE N/V March 21 9:08pm HYPOXIA PNA INTRACTABLE N/V March 22 9:54am HYPOXIA PNA INTRACTABLE N/V March 22 5:38pm HYPOXIA PNA INTRACTABLE N/V March 23 1:40pm HYPOXIA PNA INTRACTABLE N/V March 23 6:37pm HYPOXIA PNA INTRACTABLE N/V March 24 5:17pm HYPOXIA PNA INTRACTABLE N/V March 24 5:37pm TOX CHECK - LABS March 29, 2025 10:30 am [facility] March 30, 2025 10:02 am 3 WKS - LABS - [place]TRU[place] April 12, 2025 1 2:29pm 3 WKS - LABS - [place]TRU[place] May 02, 2025 9:32am hydration May 02, 2025 9:45 am Reason for Visit Admit Date Closed head injury January 10, 2025 1:50 pm Declining functional status January 10, 2 025 1:50pm Dehydration January 10, 2025 1:50 pm Brain metastasis January 10, 2025 1:50 pm Metastatic renal cell carcinoma to lung January 10, 2025 1:50pm Acute infective gastroenteritis January 1:50pm Hypoxemia January 10, 2025 1:50 pm Shock January 10, 2025 1:50 pm Brain metastasis February 01, 2025 9:4 0am Cancer of lower lobe of right lung February 01, 2025 9:40am Cancer of right kidney February 01, 2025 9:40am History of primary malignant neoplasm of left kidney February 01, 2025 9:40am Iron deficiency anemia due to chronic bl ood loss February 01, 2025 9:40am Malignant neoplasm of kidney metastatic to lung February 01, 2025 9:40am Metastasis to adrenal gland February 01, 2025 9:40am Regional lymph node metastasis present M [facility] 2024 9:40am Anemia February 16, 2025 12: 53pm Brain metastasis March 15, 2025 9:31am Cancer of lower lobe of right lung March 152024 9:31am Cancer of right kidney March 15, 2025 9:3 1am History of primary malignant neoplasm of left kidney March 15, 2025 9:31am Iron deficiency anemia due to chronic bl ood loss March 15, 2025 9:31am Malignant neoplasm of kidney metastatic to lung March 15, 2025 9:31am Metastasis to adrenal gland March 15 9:31am Regional lymph node metastasis present M ay 2024 9:31am Dysphagia March 21, 2025 4:55p m Pneumonia March 21, 2025 4:55p m Cancer of right kidney March 21, 2025 4: 55pm Hypoxia March 21, 2025 4:55p m Nausea & vomiting March 21, 2025 4:55p m Brain metastasis March 29, 2025 10:30 am Cancer of lower lobe of right lung March 102024 10:30am Cancer of right kidney March 29, 2025 10 :30am History of primary malignant neoplasm of left kidney March 29, 2025 10:30am Iron deficiency anemia due to chronic bl ood loss March 29, 2025 10:30am Malignant neoplasm of kidney metastatic to lung March 29, 2025 10:30am Metastasis to adrenal gland March 29 10:30am Regional lymph node metastasis present M ay 2024 10:30am Anemia March 30, 2025 10:02 am Brain metastasis April 12, 2025 12:29 pm Cancer of lower lobe of right lung April 12, 2025 12:29pm Cancer of right kidney April 12, 2025 12 :29pm History of primary malignant neoplasm of left kidney April 12, 2025 12:29pm Iron deficiency anemia due to chronic bl ood loss April 12, 2025 12:29pm Malignant neoplasm of kidney metastatic to lung April 12, 2025 12:29pm Metastasis to adrenal gland April 12 12:29pm Regional lymph node metastasis present J [facility] 2024 12:29pm Brain metastasis May 02, 2025 9:32 am Cancer of lower lobe of right lung May 02, 2025 9:32am Cancer of right kidney May 02, 2025 9 :32am History of primary malignant neoplasm of left kidney May 02, 2025 9:32am Iron deficiency anemia due to chronic bl ood loss May 02, 2025 9:32am Malignant neoplasm of kidney metastatic to lung May 02, 2025 9:32am Metastasis to adrenal gland May 02, 9:32am Regional lymph node metastasis present J [facility] 2024 9:32am Chief Complaint Admit Date 3WKS LABS [place] February 01, 2025 9:40am [facility] February 16, 2025 12: 53pm 6 WKS - LABS - KEYTRUDA?? March 15, 2025 9:31am HYPOXIA PNA INTRACTABLE N/V March 21 4:55pm HYPOXIA PNA INTRACTABLE N/V March 21 9:08pm HYPOXIA PNA INTRACTABLE N/V March 22 9:54am HYPOXIA PNA INTRACTABLE N/V March 22 5:38pm HYPOXIA PNA INTRACTABLE N/V March 23 1:40pm HYPOXIA PNA INTRACTABLE N/V March 23 6:37pm HYPOXIA PNA INTRACTABLE N/V March 24 5:17pm HYPOXIA PNA INTRACTABLE N/V March 24 5:37pm TOX CHECK - LABS March 29, 2025 10:30 am [facility] March 30, 2025 10:02 am 3 WKS - LABS - [place]TRU[place] April 12, 2025 1 2:29pm 3 WKS - LABS - [place] May 02, 2025 9:32am 3 WKS - LABS - [place]TRU[place] May 24, 2025 9:38am hydration May 24, 2025 9:45 am Reason for Visit Admit Date Brain metastasis February 01, 2025 9:4 0am Cancer of lower lobe of right lung February 01, 2025 9:40am Cancer of right kidney February 01, 2025 9:40am History of primary malignant neoplasm of left kidney February 01, 2025 9:40am Iron deficiency anemia due to chronic bl ood loss February 01, 2025 9:40am 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 February 01, 2025 9:40am Metastasis to adrenal gland February 01, 2025 9:40am Regional lymph node metastasis present M [facility] 2024 9:40am Anemia February 16, 2025 12: 53pm Brain metastasis March 15, 2025 9:31am Cancer of lower lobe of right lung March 152024 9:31am Cancer of right kidney March 15, 2025 9:3 1am History of primary malignant neoplasm of left kidney March 15, 2025 9:31am Iron deficiency anemia due to chronic bl ood loss March 15, 2025 9:31am 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 March 15, 2025 9:31am Metastasis to adrenal gland March 15 9:31am Regional lymph node metastasis present M ay 2024 9:31am Dysphagia March 21, 2025 4:55p m Pneumonia March 21, 2025 4:55p m Cancer of right kidney March 21, 2025 4: 55pm Hypoxia March 21, 2025 4:55p m Nausea & vomiting March 21, 2025 4:55p m Brain metastasis March 29, 2025 10:30 am Cancer of lower lobe of right lung March 102024 10:30am Cancer of right kidney March 29, 2025 10 :30am History of primary malignant neoplasm of left kidney March 29, 2025 10:30am Iron deficiency anemia due to chronic bl ood loss March 29, 2025 10:30am 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 March 29, 2025 10:30am Metastasis to adrenal gland March 29 10:30am Regional lymph node metastasis present M ay 2024 10:30am Anemia March 30, 2025 10:02 am Brain metastasis April 12, 2025 12:29 pm Cancer of lower lobe of right lung April 12, 2025 12:29pm Cancer of right kidney April 12, 2025 12 :29pm History of primary malignant neoplasm of left kidney April 12, 2025 12:29pm Iron deficiency anemia due to chronic bl ood loss April 12, 2025 12:29pm 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 April 12, 2025 12:29pm Metastasis to adrenal gland April 12 12:29pm Regional lymph node metastasis present J [facility] 2024 12:29pm Brain metastasis May 02, 2025 9:32 am Cancer of lower lobe of right lung May 02, 2025 9:32am Cancer of right kidney May 02, 2025 9 :32am History of primary malignant neoplasm of left kidney May 02, 2025 9:32am Iron deficiency anemia due to chronic bl ood loss May 02, 2025 9:32am 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 May 02, 2025 9:32am Metastasis to adrenal gland May 02, 9:32am Regional lymph node metastasis present J [facility] 2024 9:32am Brain metastasis May 24, 2025 9:38 am Cancer of lower lobe of right lung May 24, 2025 9:38am Cancer of right kidney May 24, 2025 9 :38am History of primary malignant neoplasm of left kidney May 24, 2025 9:38am Iron deficiency anemia due to chronic bl ood loss May 24, 2025 9:38am 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 March 15, 2025 9:31am HYPOXIA PNA INTRACTABLE N/V March 21 4:55pm HYPOXIA PNA INTRACTABLE N/V March 21 9:08pm HYPOXIA PNA INTRACTABLE N/V March 22 9:54am HYPOXIA PNA INTRACTABLE N/V March 22 5:38pm HYPOXIA PNA INTRACTABLE N/V March 23 1:40pm HYPOXIA PNA INTRACTABLE N/V March 23 6:37pm HYPOXIA PNA INTRACTABLE N/V March 24 5:17pm HYPOXIA PNA INTRACTABLE N/V March 24 5:37pm TOX CHECK - LABS March 29, 2025 10:30 am [facility] March 30, 2025 10:02 am 3 WKS - LABS - [place]TRU[place] April 12, 2025 1 2:29pm 3 WKS - LABS - [place]TRU[place] May 02, 2025 9:32am 3 WKS - LABS - [place]TRU[place] May 24, 2025 9:38am hydration May 24, 2025 9:45 am 1 Y FU June 09, 2025 10: 30am Reason for Visit Admit Date Anemia February 16, 2025 12: 53pm Brain metastasis March 15, 2025 9:31am Cancer of lower lobe of right lung March 152024 9:31am Cancer of right kidney March 15, 2025 9:3 1am History of primary malignant neoplasm of left kidney March 15, 2025 9:31am Iron deficiency anemia due to chronic bl ood loss March 15, 2025 9:31am 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 March 15, 2025 9:31am Metastasis to adrenal gland March 15 9:31am Regional lymph node metastasis present M ay 2024 9:31am Dysphagia March 21, 2025 4:55p m Pneumonia March 21, 2025 4:55p m Cancer of right kidney March 21, 2025 4: 55pm Hypoxia March 21, 2025 4:55p m Nausea & vomiting March 21, 2025 4:55p m Brain metastasis March 29, 2025 10:30 am Cancer of lower lobe of right lung March 102024 10:30am Cancer of right kidney March 29, 2025 10 :30am History of primary malignant neoplasm of left kidney March 29, 2025 10:30am Iron deficiency anemia due to chronic bl ood loss March 29, 2025 10:30am 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 March 29, 2025 10:30am Metastasis to adrenal gland March 29 10:30am Regional lymph node metastasis present M ay 2024 10:30am Anemia March 30, 2025 10:02 am Brain metastasis April 12, 2025 12:29 pm Cancer of lower lobe of right lung April 12, 2025 12:29pm Cancer of right kidney April 12, 2025 12 :29pm History of primary malignant neoplasm of left kidney April 12, 2025 12:29pm Iron deficiency anemia due to chronic bl ood loss April 12, 2025 12:29pm 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 April 12, 2025 12:29pm Metastasis to adrenal gland April 12 12:29pm Regional lymph node metastasis present J [facility] 2024 12:29pm Brain metastasis May 02, 2025 9:32 am Cancer of lower lobe of right lung May 02, 2025 9:32am Cancer of right kidney May 02, 2025 9 :32am History of primary malignant neoplasm of left kidney May 02, 2025 9:32am Iron deficiency anemia due to chronic bl ood loss May 02, 2025 9:32am 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 May 02, 2025 9:32am Metastasis to adrenal gland May 02, 025 9:32am Regional lymph node metastasis present J une 2024 9:32am Brain metastasis May 24, 2025 9:38 am Cancer of lower lobe of right lung May 24, 2025 9:38am Cancer of right kidney May 24, 2025 9 :38am History of primary malignant neoplasm of left kidney May 24, 2025 9:38am Iron deficiency anemia due to chronic bl ood loss May 24, 2025 9:38am 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 March 15, 2025 9:31am HYPOXIA PNA INTRACTABLE N/V March 21 4:55pm HYPOXIA PNA INTRACTABLE N/V March 21 9:08pm HYPOXIA PNA INTRACTABLE N/V March 22 9:54am HYPOXIA PNA INTRACTABLE N/V March 22 5:38pm HYPOXIA PNA INTRACTABLE N/V March 23 1:40pm HYPOXIA PNA INTRACTABLE N/V March 23 6:37pm HYPOXIA PNA INTRACTABLE N/V March 24 5:17pm HYPOXIA PNA INTRACTABLE N/V March 24 5:37pm TOX CHECK - LABS March 29, 2025 10:30 am [facility] March 30, 2025 10:02 am 3 WKS - LABS - [place]TRU[place] April 12, 2025 1 2:29pm 3 WKS - LABS - [place]TRU[place] May 02, 2025 9:32am 3 WKS - LABS - [place]TRU[place] May 24, 2025 9:38am 1 Y FU June 09, 2025 10: 30am 3 WKS - LABS - [place]TRU[place] June 15, 2025 10:28am hydration June 15, 2025 10: 30am Reason for Visit Admit Date Anemia February 16, 2025 12: 53pm Brain metastasis March 15, 2025 9:31am Cancer of lower lobe of right lung March 152024 9:31am Cancer of right kidney March 15, 2025 9:3 1am History of primary malignant neoplasm of left kidney March 15, 2025 9:31am Iron deficiency anemia due to chronic bl ood loss March 15, 2025 9:31am 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 March 15, 2025 9:31am Metastasis to adrenal gland March 15 9:31am Regional lymph node metastasis present M ay 2024 9:31am Dysphagia March 21, 2025 4:55p m Pneumonia March 21, 2025 4:55p m Cancer of right kidney March 21, 2025 4: 55pm Hypoxia March 21, 2025 4:55p m Nausea & vomiting March 21, 2025 4:55p m Brain metastasis March 29, 2025 10:30 am Cancer of lower lobe of right lung March 102024 10:30am Cancer of right kidney March 29, 2025 10 :30am History of primary malignant neoplasm of left kidney March 29, 2025 10:30am Iron deficiency anemia due to chronic bl ood loss March 29, 2025 10:30am 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 March 29, 2025 10:30am Metastasis to adrenal gland March 29 10:30am Regional lymph node metastasis present M ay 2024 10:30am Anemia March 30, 2025 10:02 am Brain metastasis April 12, 2025 12:29 pm Cancer of lower lobe of right lung April 12, 2025 12:29pm Cancer of right kidney April 12, 2025 12 :29pm History of primary malignant neoplasm of left kidney April 12, 2025 12:29pm Iron deficiency anemia due to chronic bl ood loss April 12, 2025 12:29pm 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 April 12, 2025 12:29pm Metastasis to adrenal gland April 12 12:29pm Regional lymph node metastasis present J [facility] 2024 12:29pm Brain metastasis May 02, 2025 9:32 am Cancer of lower lobe of right lung May 02, 2025 9:32am Cancer of right kidney May 02, 2025 9 :32am History of primary malignant neoplasm of left kidney May 02, 2025 9:32am Iron deficiency anemia due to chronic bl ood loss May 02, 2025 9:32am 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 May 02, 2025 9:32am Metastasis to adrenal gland May 02, 9:32am Regional lymph node metastasis present J [facility] 2024 9:32am Brain metastasis May 24, 2025 9:38 am Cancer of lower lobe of right lung May 24, 2025 9:38am Cancer of right kidney May 24, 2025 9 :38am History of primary malignant neoplasm of left kidney May 24, 2025 9:38am Iron deficiency anemia due to chronic bl ood loss May 24, 2025 9:38am 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 May 24, 2025 9:38am Metastasis to adrenal gland May 24, 9:38am Regional lymph node metastasis present J [facility] 2024 9:38am COPD (chronic obstructive pulmonary dise ase) June 09, 2025 10:30am 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 March 15, 2025 9:31am HYPOXIA PNA INTRACTABLE N/V March 21 4:55pm HYPOXIA PNA INTRACTABLE N/V March 21 9:08pm HYPOXIA PNA INTRACTABLE N/V March 22 9:54am HYPOXIA PNA INTRACTABLE N/V March 22 5:38pm HYPOXIA PNA INTRACTABLE N/V March 23 1:40pm HYPOXIA PNA INTRACTABLE N/V March 23 6:37pm HYPOXIA PNA INTRACTABLE N/V March 24 5:17pm HYPOXIA PNA INTRACTABLE N/V March 24 5:37pm TOX CHECK - LABS March 29, 2025 10:30 am Hospital FU March 30, 2025 10:02 am 3 WKS - LABS - KEYTRUDA April 12, 2025 1 2:29pm 3 WKS - LABS - KEYTRUDA May 02, 2025 9:32am 3 WKS - LABS - KEYTRUDA May 24, 2025 9:38am 1 Y FU June 09, 2025 10: 30am 3 WKS - LABS - KEYTRUDA June 15, 2025 10:28am KIDNEY CANCER June 28, 2025 1: 41pm hydration June 28, 2025 2: 30pm 3 M FU July 04, 2025 10 :20am Reason for Visit Admit Date Brain metastasis March 15, 2025 9:31am Cancer of lower lobe of right lung March 152024 9:31am Cancer of right kidney March 15, 2025 9:3 1am History of primary malignant neoplasm of left kidney March 15, 2025 9:31am Iron deficiency anemia due to chronic bl ood loss March 15, 2025 9:31am 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 March 15, 2025 9:31am Metastasis to adrenal gland March 15 9:31am Regional lymph node metastasis present M ay 2024 9:31am Dysphagia March 21, 2025 4:55p m Pneumonia March 21, 2025 4:55p m Cancer of right kidney March 21, 2025 4: 55pm Hypoxia March 21, 2025 4:55p m Nausea & vomiting March 21, 2025 4:55p m Brain metastasis March 29, 2025 10:30 am Cancer of lower lobe of right lung March 102024 10:30am Cancer of right kidney March 29, 2025 10 :30am History of primary malignant neoplasm of left kidney March 29, 2025 10:30am Iron deficiency anemia due to chronic bl ood loss March 29, 2025 10:30am 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 March 29, 2025 10:30am Metastasis to adrenal gland March 29 10:30am Regional lymph node metastasis present M ay 2024 10:30am Anemia March 30, 2025 10:02 am Brain metastasis April 12, 2025 12:29 pm Cancer of lower lobe of right lung April 12, 2025 12:29pm Cancer of right kidney April 12, 2025 12 :29pm History of primary malignant neoplasm of left kidney April 12, 2025 12:29pm Iron deficiency anemia due to chronic bl ood loss April 12, 2025 12:29pm 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 April 12, 2025 12:29pm Metastasis to adrenal gland April 12 12:29pm Regional lymph node metastasis present J une 2024 12:29pm Brain metastasis May 02, 2025 9:32 am Cancer of lower lobe of right lung May 02, 2025 9:32am Cancer of right kidney May 02, 2025 9 :32am History of primary malignant neoplasm of left kidney May 02, 2025 9:32am Iron deficiency anemia due to chronic bl ood loss May 02, 2025 9:32am 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 May 02, 2025 9:32am Metastasis to adrenal gland May 02, 025 9:32am Regional lymph node metastasis present J une 2024 9:32am Brain metastasis May 24, 2025 9:38 am Cancer of lower lobe of right lung May 24, 2025 9:38am Cancer of right kidney May 24, 2025 9 :38am History of primary malignant neoplasm of left kidney May 24, 2025 9:38am Iron deficiency anemia due to chronic bl ood loss May 24, 2025 9:38am 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 May 24, 2025 9:38am Metastasis to adrenal gland May 24, 2 025 9:38am Regional lymph node metastasis present J vinay 2024 9:38am COPD (chronic obstructive pulmonary dise ase) June 09, 2025 10:30am 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 March 15, 2025 9:31am HYPOXIA PNA INTRACTABLE N/V March 21 4:55pm HYPOXIA PNA INTRACTABLE N/V March 21 9:08pm HYPOXIA PNA INTRACTABLE N/V March 22 9:54am HYPOXIA PNA INTRACTABLE N/V March 22 5:38pm HYPOXIA PNA INTRACTABLE N/V March 23 1:40pm HYPOXIA PNA INTRACTABLE N/V March 23 6:37pm HYPOXIA PNA INTRACTABLE N/V March 24 5:17pm HYPOXIA PNA INTRACTABLE N/V March 24 5:37pm TOX CHECK - LABS March 29, 2025 10:30 am [facility] March 30, 2025 10:02 am 3 WKS - LABS - KEYTRUDA April 12, 2025 1 2:29pm 3 WKS - LABS - KEYTRUDA May 02, 2025 9:32am 3 WKS - LABS - KEYTRUDA May 24, 2025 9:38am 1 Y June 09, 2025 10: 30am 3 WKS - LABS - KEYTRUDA June 15, 2025 10:28am KIDNEY CANCER June 28, 2025 1: 41pm 3 M July 04, 2025 10 :20am 3 WKS - LABS - KEYTRUDA - [facility] 12:29pm hydration July 05, 2025 12 :30pm Reason for Visit Admit Date Brain metastasis March 15, 2025 9:31am Cancer of lower lobe of right lung March 152024 9:31am Cancer of right kidney March 15, 2025 9:3 1am History of primary malignant neoplasm of left kidney March 15, 2025 9:31am Iron deficiency anemia due to chronic bl ood loss March 15, 2025 9:31am 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 March 15, 2025 9:31am Metastasis to adrenal gland March 15 9:31am Regional lymph node metastasis present M ay 2024 9:31am Dysphagia March 21, 2025 4:55p m Pneumonia March 21, 2025 4:55p m Cancer of right kidney March 21, 2025 4: 55pm Hypoxia March 21, 2025 4:55p m Nausea & vomiting March 21, 2025 4:55p m Brain metastasis March 29, 2025 10:30 am Cancer of lower lobe of right lung March 102024 10:30am Cancer of right kidney March 29, 2025 10 :30am History of primary malignant neoplasm of left kidney March 29, 2025 10:30am Iron deficiency anemia due to chronic bl ood loss March 29, 2025 10:30am 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 March 29, 2025 10:30am Metastasis to adrenal gland March 29 10:30am Regional lymph node metastasis present M ay 2024 10:30am Anemia March 30, 2025 10:02 am Brain metastasis April 12, 2025 12:29 pm Cancer of lower lobe of right lung April 12, 2025 12:29pm Cancer of right kidney April 12, 2025 12 :29pm History of primary malignant neoplasm of left kidney April 12, 2025 12:29pm Iron deficiency anemia due to chronic bl ood loss April 12, 2025 12:29pm 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 April 12, 2025 12:29pm Metastasis to adrenal gland April 12 12:29pm Regional lymph node metastasis present J une 2024 12:29pm Brain metastasis May 02, 2025 9:32 am Cancer of lower lobe of right lung May 02, 2025 9:32am Cancer of right kidney May 02, 2025 9 :32am History of primary malignant neoplasm of left kidney May 02, 2025 9:32am Iron deficiency anemia due to chronic bl ood loss May 02, 2025 9:32am 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 May 02, 2025 9:32am Metastasis to adrenal gland May 02 025 9:32am Regional lymph node metastasis present J une 2024 9:32am Brain metastasis May 24, 2025 9:38 am Cancer of lower lobe of right lung May 24, 2025 9:38am Cancer of right kidney May 24, 2025 9 :38am History of primary malignant neoplasm of left kidney May 24, 2025 9:38am Iron deficiency anemia due to chronic bl ood loss May 24, 2025 9:38am 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 May 24, 2025 9:38am Metastasis to adrenal gland May 24 9:38am Regional lymph node metastasis present J vinay 2024 9:38am COPD (chronic obstructive pulmonary dise ase) June 09, 2025 10:30am 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 June 09, 2025 10:30am Encounter for immunotherapy June 15, 2025 10:28am Brain metastasis June 15, 2025 10: 28am Cancer of lower lobe of right lung Augus t 2024 10:28am Cancer of right kidney June 15, 2025 10:28am History of primary malignant neoplasm of left kidney June 15, 2025 10:28am Iron deficiency anemia due to chronic bl ood loss June 15, 2025 10:28am 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 June 15, 2025 10:28am Metastasis to adrenal gland June 15, 2025 10:28am Regional lymph node metastasis present A ugust 2024 10:28am Anemia July 04, 2025 10 :20am Brain metastasis July 05, 2025 12 :29pm Cancer of lower lobe of right lung Augus t 2024 12:29pm Cancer of right kidney July 05, 2025 12:29pm History of primary malignant neoplasm of left kidney July 05, 2025 12:29pm Iron deficiency anemia due to chronic bl ood loss July 05, 2025 12:29pm 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 July 05, 2025 12:29pm Metastasis to adrenal gland July 05, 2025 12:29pm Regional lymph node metastasis present A ugust 2024 12:29pm Chief Complaint Admit Date TOX CHECK - LABS March 29, 2025 10:30 am Hospital FU March 30, 2025 10:02 am 3 WKS - LABS - KEYTRUDA April 12, 2025 1 2:29pm 3 WKS - LABS - KEYTRUDA May 02, 2025 9:32am 3 WKS - LABS - KEYTRUDA May 24, 2025 9:38am 1 Y FU June 09, 2025 10: 30am 3 WKS - LABS - KEYTRUDA June 15, 2025 10:28am KIDNEY CANCER June 28, 2025 1: 41pm 3 M FU July 04, 2025 10 :20am 3 WKS - LABS - KEYTRUDA - REVIEW SCANS A ugust 2024 12:29pm 3 WKS - LABS - KEYTRUDA July 26, 2025 9:41am hydration July 26, 2025 9:45am Reason for Visit Admit Date Brain metastasis March 29, 2025 10:30 am Cancer of lower lobe of right lung March 102024 10:30am Cancer of right kidney March 29, 2025 10 :30am History of primary malignant neoplasm of left kidney March 29, 2025 10:30am Iron deficiency anemia due to chronic bl ood loss March 29, 2025 10:30am 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 March 29, 2025 10:30am Metastasis to adrenal gland March 29 10:30am Regional lymph node metastasis present M 2024 10:30am Anemia March 30, 2025 10:02 am Brain metastasis April 12, 2025 12:29 pm Cancer of lower lobe of right lung April 12, 2025 12:29pm Cancer of right kidney April 12, 2025 12 :29pm History of primary malignant neoplasm of left kidney April 12, 2025 12:29pm Iron deficiency anemia due to chronic bl ood loss April 12, 2025 12:29pm 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 April 12, 2025 12:29pm Metastasis to adrenal gland April 12 12:29pm Regional lymph node metastasis present J [facility] 2024 12:29pm Brain metastasis May 02, 2025 9:32 am Cancer of lower lobe of right lung May 02, 2025 9:32am Cancer of right kidney May 02, 2025 9 :32am History of primary malignant neoplasm of left kidney May 02, 2025 9:32am Iron deficiency anemia due to chronic bl ood loss May 02, 2025 9:32am 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 May 02, 2025 9:32am Metastasis to adrenal gland May 02 9:32am Regional lymph node metastasis present J une 2024 9:32am Brain metastasis May 24, 2025 9:38 am Cancer of lower lobe of right lung May 24, 2025 9:38am Cancer of right kidney May 24, 2025 9 :38am History of primary malignant neoplasm of left kidney May 24, 2025 9:38am Iron deficiency anemia due to chronic bl ood loss May 24, 2025 9:38am 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 May 24, 2025 9:38am Metastasis to adrenal gland May 24 9:38am Regional lymph node metastasis present J vinay 2024 9:38am COPD (chronic obstructive pulmonary dise ase) June 09, 2025 10:30am 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 June 09, 2025 10:30am Encounter for immunotherapy June 15, 2025 10:28am Brain metastasis June 15, 2025 10: 28am Cancer of lower lobe of right lung Augus 2024 10:28am Cancer of right kidney June 15, 2025 10:28am History of primary malignant neoplasm of left kidney June 15, 2025 10:28am Iron deficiency anemia due to chronic bl ood loss June 15, 2025 10:28am 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 June 15, 2025 10:28am Metastasis to adrenal gland June 15, 2025 10:28am Regional lymph node metastasis present A ugust 2024 10:28am Anemia July 04, 2025 10 :20am Brain metastasis July 05, 2025 12 :29pm Cancer of lower lobe of right lung Augus t 2024 12:29pm Cancer of right kidney July 05, 2025 12:29pm History of primary malignant neoplasm of left kidney July 05, 2025 12:29pm Iron deficiency anemia due to chronic bl ood loss July 05, 2025 12:29pm 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 July 05, 2025 12:29pm Metastasis to adrenal gland July 05, 2025 12:29pm Regional lymph node metastasis present A ugust 2024 12:29pm Brain metastasis July 26, 2025 9:41am Cancer of lower lobe of right lung Septe mber 2024 9:41am Cancer of right kidney July 26, 025 9:41am History of primary malignant neoplasm of left kidney July 26, 2025 9:41am Iron deficiency anemia due to chronic bl ood loss July 26, 2025 9:41am 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 July 26, 2025 9:41am Metastasis to adrenal gland July 262024 9:41am [facility] 9:[facility]am Chief Complaint Admit Date 3 WKS - LABS - KEYTRUDA April 12, 2025 1 2:29pm 3 WKS - LABS - KEYTRUDA May 02, 2025 9:32am 3 WKS - LABS - KEYTRUDA May 24, 2025 9:38am 1 Y FU June 09, 2025 10: 30am 3 WKS - LABS - KEYTRUDA June 15, 2025 10:28am KIDNEY CANCER June 28, 2025 1: 41pm 3 M FU July 04, 2025 10 :20am 3 WKS - LABS - KEYTRUDA - REVIEW SCANS A ugust 2024 12:29pm 3 WKS - LABS - KEYTRUDA July 26, 2025 9:41am hydration July 26, 2025 9:45am 6 M FU August 04, 2025 11:13am Reason for Visit Admit Date Brain metastasis April 12, 2025 12:29 pm Cancer of lower lobe of right lung April 12, 2025 12:29pm Cancer of right kidney April 12, 2025 12 :29pm History of primary malignant neoplasm of left kidney April 12, 2025 12:29pm Iron deficiency anemia due to chronic bl ood loss April 12, 2025 12:29pm 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 April 12, 2025 12:29pm Metastasis to adrenal gland April 12 12:29pm Regional lymph node metastasis present J [facility] 2024 12:29pm Brain metastasis May 02, 2025 9:32 am Cancer of lower lobe of right lung May 02, 2025 9:32am Cancer of right kidney May 02, 2025 9 :32am History of primary malignant neoplasm of left kidney May 02, 2025 9:32am Iron deficiency anemia due to chronic bl ood loss May 02, 2025 9:32am 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 May 02, 2025 9:32am Metastasis to adrenal gland May 02 9:32am Regional lymph node metastasis present J [facility] 2024 9:32am Brain metastasis May 24, 2025 9:38 am Cancer of lower lobe of right lung May 24, 2025 9:38am Cancer of right kidney May 24, 2025 9 :38am History of primary malignant neoplasm of left kidney May 24, 2025 9:38am Iron deficiency anemia due to chronic bl ood loss May 24, 2025 9:38am 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 May 24, 2025 9:38am Metastasis to adrenal gland May 24 9:38am Regional lymph node metastasis present J vinay 2024 9:38am COPD (chronic obstructive pulmonary dise ase) June 09, 2025 10:30am 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 June 09, 2025 10:30am Encounter for immunotherapy June 15, 2025 10:28am Brain metastasis June 15, 2025 10: 28am Cancer of lower lobe of right lung Augus 2024 10:28am Cancer of right kidney June 15, 2025 10:28am History of primary malignant neoplasm of left kidney June 15, 2025 10:28am Iron deficiency anemia due to chronic bl ood loss June 15, 2025 10:28am 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 June 15, 2025 10:28am Metastasis to adrenal gland June 15, 2025 10:28am Regional lymph node metastasis present A ugust 2024 10:28am Anemia July 04, 2025 10 :20am Brain metastasis July 05, 2025 12 :29pm Cancer of lower lobe of right lung Augus t 2024 12:29pm Cancer of right kidney July 05, 2025 12:29pm History of primary malignant neoplasm of left kidney July 05, 2025 12:29pm Iron deficiency anemia due to chronic bl ood loss July 05, 2025 12:29pm 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 July 05, 2025 12:29pm Metastasis to adrenal gland July 05, 2025 12:29pm Regional lymph node metastasis present A ugust 2024 12:29pm Brain metastasis July 26, 2025 9:41am Cancer of lower lobe of right lung Septe mber 2024 9:41am Cancer of right kidney July 26, 025 9:41am History of primary malignant neoplasm of left kidney July 26, 2025 9:41am Iron deficiency anemia due to chronic bl ood loss July 26, 2025 9:41am 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 July 26, 2025 9:41am Metastasis to adrenal gland July 262024 9:41am Regional lymph node metastasis present S eptember 2024 9:41am Carotid bruit August 04, 2025 11:13am Essential (primary) hypertension Septemb er 2024 11:13am Hyperlipidemia August 04, 2025 11:13am Metastatic renal cell carcinoma to lung August 04, 2025 11:13am Nonrheumatic aortic (valve) stenosis wit h insufficiency August 04, 2025 11:13am History of coronary artery stent placeme nt August 04, 2025 11:13am Chief Complaint Admit Date 3 WKS - LABS - KEYTRUDA May 02, 2025 9:32am 3 WKS - LABS - KEYTRUDA May 24, 2025 9:38am 1 Y FU June 09, 2025 10: 30am 3 WKS - LABS - KEYTRUDA June 15, 2025 10:28am KIDNEY CANCER June 28, 2025 1: 41pm 3 M FU July 04, 2025 10 :20am 3 WKS - LABS - KEYTRUDA - REVIEW SCANS A ugust 2024 12:29pm 3 WKS - LABS - KEYTRUDA July 26, 2025 9:41am 6 M FU August 04, 2025 11:13am 3 WKS - LABS - KEYTRUDA August 16 10:24am hydration August 16, 2025 10 :30am Reason for Visit Admit Date Brain metastasis May 02, 2025 9:32 am Cancer of lower lobe of right lung May 02, 2025 9:32am Cancer of right kidney May 02, 2025 9 :32am History of primary malignant neoplasm of left kidney May 02, 2025 9:32am Iron deficiency anemia due to chronic bl ood loss May 02, 2025 9:32am 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 May 02, 2025 9:32am Metastasis to adrenal gland May 02 025 9:32am Regional lymph node metastasis present J [facility] 2024 9:32am Brain metastasis May 24, 2025 9:38 am Cancer of lower lobe of right lung May 24, 2025 9:38am Cancer of right kidney May 24, 2025 9 :38am History of primary malignant neoplasm of left kidney May 24, 2025 9:38am Iron deficiency anemia due to chronic bl ood loss May 24, 2025 9:38am 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 May 24, 2025 9:38am Metastasis to adrenal gland May 24 9:38am Regional lymph node metastasis present J vinay 2024 9:38am COPD (chronic obstructive pulmonary dise ase) June 09, 2025 10:30am 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 June 09, 2025 10:30am Encounter for immunotherapy June 15, 2025 10:28am Brain metastasis June 15, 2025 10: 28am Cancer of lower lobe of right lung Augus t 2024 10:28am Cancer of right kidney June 15, 2025 10:28am History of primary malignant neoplasm of left kidney June 15, 2025 10:28am Iron deficiency anemia due to chronic bl ood loss June 15, 2025 10:28am 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 June 15, 2025 10:28am Metastasis to adrenal gland June 15, 2025 10:28am Regional lymph node metastasis present A ugust 2024 10:28am Anemia July 04, 2025 10 :20am Brain metastasis July 05, 2025 12 :29pm Cancer of lower lobe of right lung Augus t 2024 12:29pm Cancer of right kidney July 05, 2025 12:29pm History of primary malignant neoplasm of left kidney July 05, 2025 12:29pm Iron deficiency anemia due to chronic bl ood loss July 05, 2025 12:29pm 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 July 05, 2025 12:29pm Metastasis to adrenal gland July 05, 2025 12:29pm Regional lymph node metastasis present A ugust 2024 12:29pm Brain metastasis July 26, 2025 9:41am Cancer of lower lobe of right lung Septe mber 2024 9:41am Cancer of right kidney July 26, 2 025 9:41am History of primary malignant neoplasm of left kidney July 26, 2025 9:41am Iron deficiency anemia due to chronic bl ood loss July 26, 2025 9:41am 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 July 26, 2025 9:41am Metastasis to adrenal gland July 262024 9:41am Regional lymph node metastasis present S eptember 2024 9:41am Carotid bruit August 04, 2025 11:13am Essential (primary) hypertension Septemb er 2024 11:13am Hyperlipidemia August 04, 2025 11:13am Metastatic renal cell carcinoma to lung August 04, 2025 11:13am Nonrheumatic aortic (valve) stenosis wit h insufficiency August 04, 2025 11:13am History of coronary artery stent placeme nt August 04, 2025 11:13am Brain metastasis August 16, 2025 10 :24am Cancer of lower lobe of right lung Octob er 2024 10:24am Cancer of right kidney August 16, 2025 10:24am History of primary malignant neoplasm of left kidney August 16, 2025 10:24am Iron deficiency anemia due to chronic bl ood loss August 16, 2025 10:24am 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 August 16, 2025 10:24am Metastasis to adrenal gland August 16, 2025 10:24am Regional lymph node metastasis present O ctober 2024 10:24am Chief Complaint Admit Date 3 WKS - LABS - KEYTRUDA May 24, 2025 9:38am 1 Y FU June 09, 2025 10: 30am 3 WKS - LABS - KEYTRUDA June 15, 2025 10:28am KIDNEY CANCER June 28, 2025 1: 41pm 3 M FU July 04, 2025 10 :20am 3 WKS - LABS - KEYTRUDA - REVIEW SCANS A ugust 2024 12:29pm 3 WKS - LABS - KEYTRUDA July 26, 2025 9:41am 6 M FU August 04, 2025 11:13am 3 WKS - LABS - KEYTRUDA August 16 10:24am hydration August 16, 2025 10 :30am CELLULITIS RT ARM, R/O SEPSIS August 192024 7:52pm CELLULITIS RT ARM, R/O SEPSIS August 202024 7:32am CELLULITIS RT ARM, R/O SEPSIS August 202024 8:20am CELLULITIS RT ARM, R/O SEPSIS August 212024 9:47am CELLULITIS RT ARM, R/O SEPSIS August 222024 8:21am CELLULITIS RT ARM, R/O SEPSIS August 222024 10:22am follow up August 24, 2025 2 :30pm Reason for Visit Admit Date Brain metastasis May 24, 2025 9:38 am Cancer of lower lobe of right lung May 24, 2025 9:38am Cancer of right kidney May 24, 2025 9 :38am History of primary malignant neoplasm of left kidney May 24, 2025 9:38am Iron deficiency anemia due to chronic bl ood loss May 24, 2025 9:38am 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 May 24, 2025 9:38am Metastasis to adrenal gland May 24, 025 9:38am Regional lymph node metastasis present J [facility] 2024 9:38am COPD (chronic obstructive pulmonary dise ase) June 09, 2025 10:30am 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 June 09, 2025 10:30am Encounter for immunotherapy June 15, 2025 10:28am Brain metastasis June 15, 2025 10: 28am Cancer of lower lobe of right lung Augus 2024 10:28am Cancer of right kidney June 15, 2025 10:28am History of primary malignant neoplasm of left kidney June 15, 2025 10:28am Iron deficiency anemia due to chronic bl ood loss June 15, 2025 10:28am 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 June 15, 2025 10:28am Metastasis to adrenal gland June 15, 2025 10:28am Regional lymph node metastasis present A [facility] 2024 10:28am Anemia July 04, 2025 10 :20am Brain metastasis July 05, 2025 12 :29pm Cancer of lower lobe of right lung Augus t 2024 12:29pm Cancer of right kidney July 05, 2025 12:29pm History of primary malignant neoplasm of left kidney July 05, 2025 12:29pm Iron deficiency anemia due to chronic bl ood loss July 05, 2025 12:29pm 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 July 05, 2025 12:29pm Metastasis to adrenal gland July 05, 2025 12:29pm Regional lymph node metastasis present A ugust 2024 12:29pm Brain metastasis July 26, 2025 9:41am Cancer of lower lobe of right lung Septe mber 2024 9:41am Cancer of right kidney July 26, 2 025 9:41am History of primary malignant neoplasm of left kidney July 26, 2025 9:41am Iron deficiency anemia due to chronic bl ood loss July 26, 2025 9:41am 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 July 26, 2025 9:41am Metastasis to adrenal gland July 262024 9:41am Regional lymph node metastasis present S eptember 2024 9:41am Carotid bruit August 04, 2025 11:13am Essential (primary) hypertension Septemb er 2024 11:13am Hyperlipidemia August 04, 2025 11:13am Metastatic renal cell carcinoma to lung August 04, 2025 11:13am Nonrheumatic aortic (valve) stenosis wit h insufficiency August 04, 2025 11:13am History of coronary artery stent placeme nt August 04, 2025 11:13am Brain metastasis August 16, 2025 10 :24am Cancer of lower lobe of right lung Octob er 2024 10:24am Cancer of right kidney August 16, 2025 10:24am History of primary malignant neoplasm of left kidney August 16, 2025 10:24am Iron deficiency anemia due to chronic bl ood loss August 16, 2025 10:24am 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 August 16, 2025 10:24am Metastasis to adrenal gland August 16, 2025 10:24am Regional lymph node metastasis present O ctober 2024 10:24am Cellulitis of right upper extremity Octo chema 2024 7:52pm Cellulitis August 24, 2025 2 :30pm Additional Source Comments Ordered Prescriptions (unrec ognized section and content) Prescription Sig Dispensed Refills Start Date End Da te polyethylene glycol (GLYCOLAX) 17 GM/SCOOP powder Take 17 g by mouth daily as needed (constipation) 510 g 0 03/15/2021 04/14/2021 oxyCODONE-acetaminophen (PERCOCET) 5-325 MG per tabletIndications:Adenos quamous carcinoma of lung, left (HCC) Take 1 tablet by mouth every 6 hours as needed for Pain for up to 7 days. Intended supply: 7 days. Take lowest dose possible to manage pain 28 tablet 0 03/15/2021 03/22/2021 Prescription Sig Dispensed Refills Start Date End [...] (unrecogniz ed section and content) Reason Comments Reason Comments New Patient Brain lesion Reason Onset Date Comments Medical records 05/22/2023 Reason Comments Appointment Specialty Diagnoses / Procedures Referred By Contac t Referred To Contact MR IMAGING Diagnoses 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 Procedures MRI BRAIN WO/W IVCON MRI BRAIN BRAIN STEM W/O W/CONTRAST MATERIAL Kesha Dey APRN.[employer]ER [employer] [address] [place] [address] Mr Imaging Referral ID Status Reason Start Date Expiration Date V isits Requested Visits Authorized [id number] Closed Auto-Generate d Referral 05/29/2023 06/27/2024 1 [...] BRAIN BRAIN STEM W/O W/CONTRAST MATERIAL Francois Acevedo MD [address] [facility] [place] [address] [place] [address] Referral ID Status Reason Start Date Expiration Date V isits Requested Visits Authorized [id number] Closed Auto-Generate d Referral 08/07/2023 09/05/2024 1 1 Reason Onset Date Comments Nose Problem 11/24/2023 Reason Comments Epistaxis (Nose Bleed) On Eliquis Reason Comments Follow-up 6 month med check Reason Onset Date Comments Referral 01/08/2024 Dr Oesi Specialty Diagnoses / Procedures Referred By Contac t Referred To Contact MR IMAGING Diagnoses Metastatic cancer to brain (HCC) Procedures MRI BRAIN WO/W IVCON MRI BRAIN BRAIN STEM W/O W/CONTRAST MATERIAL Kesha Dey APRN.[employer] DEL[employer] [address] [facility] [place] [address] Mr Imaging [facility] Referral ID Status Reason Start Date Expiration Date V isits Requested Visits Authorized [id number] Closed Auto-Generate d Referral 11/17/2023 12/16/2024 1 1 Reason Onset Date Comments Med Refill 04/15/2024 Reason Comments 6 Month Follow-up Reason Comments Vascular Access Follow Up Referral ID Status Reason Start Date Expiration Date V isits Requested Visits Authorized [id number] Closed Auto-Generate d Referral 02/19/2024 03/20/2025 1 1 Reason Onset Date Comments Med Refill 05/26/2024 Reason Comments Other Boil on left side of collar bone areas neck and left side of head Flu Vaccine Patient has already received the flu vaccine. Chart has been updated to reflect Reason Onset Date Comments Skin Problem 09/16/2024 Reason Comments Follow-up Med check Reason Onset Date Comments Cough 11/17/2022 Reason Comments Cough s Shortness of Breath X 1 week Reason Comments Follow-up 6 month Reason Onset Date Comments Orders 01/01/2023 Reason Onset Date Comments Orders 12/31/2022 Carotid dopplerD ermatology Reason Comments Blood Draw (CVAD) Specialty Diagnoses / Procedures Referred By Contac t Referred To Contact MR IMAGING Diagnoses Metastatic cancer to brain (HCC) Secondary malignant neoplasm of brain (HCC) Procedures MRI BRAIN WO/W IVCON MRI BRAIN BRAIN STEM W/O W/CONTRAST MATERIAL Kesha Dey, LEXI.[employer] [address] [place] [address] [place] [address] Referral ID Status Reason Start Date Expiration Date V isits Requested Visits Authorized [id number] Closed Auto-Generate d Referral 05/20/2024 06/19/2025 1 1 Reason Onset Date Comments Hives 12/01/2024 Reason Onset Date Comments Med Refill 12/05/2024 Reason Onset Date Comments Sinusitis 12/06/2024 Reason Comments Nasal Congestion Coughing up green an d brown mucus Head congestion Diarrhea Other Seen at Urgent Care Thursday, Flu and COVID test both NEGATIVE Reason Onset Date Comments Sinusitis 12/12/2024 Reason Onset Date Comments Other 12/12/2024 Reason Onset Date Comments Vomiting 12/28/2024 Fever 12/28/2024 Reason Comments Hospital Follow-up Fever Respiratory Distress Vomiting Can't eat Reason Onset Date Comments Results 12/30/2024 Reason Onset Date Comments Thrush 01/20/2025 Reason Comments Hospital Follow-up Reason Onset Date Comments Other 03/27/2025 Plan of care Reason Comments Medicare Annual Wellness Visit Subsequen t Reason Comments CVAD Access Reason Comments Rash Reason Comments New Patient New to provider Medication Check Pt states he is no d iabetic Establish Care Pt has multiple canc er- had immunotherapy treatment yesterday Reason Comments Blood Pressure Check Scheduled Active and Recently Administ ered Medications (unrecognized section and content) Medication Order 05/15/2021 05/16/2021 05/17/2021 0.9 % sodium chloride bolus (COMPLETED) 250 mL, Intravenous, at 250 mL/hr, Administer over 1 Hours, ONCE, On Thu05/15/21 at 0930, For 1 dose 0953 (New Bag - Provider: Augusta Munoz, LUPE)1104 (Stopped - Provider: Kika Moore RN) aspirin EC tablet 81 mg(Linked Group 1) 81 mg, Oral, DAILY, First dose on Thu05/15/21 at 1615, Do NOT administer if bleed present on follow up CT-Head. 2011 (Given - Provider: Dahiana Pino, LUPE) 0832 (Given - Provider: Adriano Christian RN) 0908 (Given - Provider: Julissa Krishna RN) aspirin suppository 300 mg(Linked Group 1) 300 mg, Rectal, DAILY, First dose on Thu05/15/21 at 1615, Use suppository if NPO or failed swallow screen. 2011 (See Alternative - Provider: Dahiana Pino RN) 08 (See Alternative - Provider: Adriano Christian RN) 0908 (See Alternative - Provider: Julissa Krishna RN) carvedilol (COREG) tablet 25 mg 25 mg, Oral, 2 TIMES DAILY, First dose on Thu05/16/21 at 2099, Administer with food to minimize the risk of orthostatic hypotension 2058 (Given - Provider: Dahiana Pino RN) 906 (Given - Provider: Julissa Krishna RN)2099 (Due) carvedilol (COREG) tablet 25 mg (COMPLETED) 25 mg, Oral, ONCE, On Thu05/15/21 at 1130, For 1 dose, Administer with food to minimize the risk of orthostatic hypotension, STAT 1210 (Given - Provider: Marisela Watson RN) cilostazol (PLETAL) tablet 50 mg 50 mg, Oral, 2 TIMES DAILY, First dose on Thu05/16/21 at 2099 2058 (Given - Provider: Dahiana Pino RN) 907 (Given - Provider: Julissa Krishna RN)2099 (Due) enalapril (VASOTEC) tablet 20 mg 20 mg, Oral, 2 TIMES DAILY, First dose on Thu05/16/21 at 2099 2005 (Not Given - Provider: Dahiana Pino RN - Reason: Other - Comment: SBP < 180) 907 (Given - Provider: Julissa Krishna RN)2099 (Due) enalapril (VASOTEC) tablet 20 mg (COMPLETED) 20 mg, Oral, ONCE, On Thu05/15/21 at 1130, For 1 dose, STAT 1210 (Given - Provider: Marisela Watson RN) enoxaparin (LOVENOX) injection 40 mg 40 mg, Subcutaneous, DAILY, First dose on Thu05/15/21 at 1600 2012 (Given - Provider: Dahiana Pino RN) 2102 (Given - Provider: Dahiana Pino RN) 2100 (Due - Provider: Julissa Krishna RN) hydrALAZINE (APRESOLINE) tablet 25 mg (CANCELED) 25 mg, Oral, EVERY 8 HOURS SCHEDULED (3 times per day), First dose on Thu05/17/21 at 1400 1243 (Given - Provider: Kiersten John LPN) hydrALAZINE (APRESOLINE) tablet 25 mg (COMPLETED) 25 mg, Oral, ONCE, On Thu05/17/21 at 1600, For 1 dose 1608 (Given - Provider: Julissa Krishna RN) hydrALAZINE (APRESOLINE) tablet 50 mg 50 mg, Oral, EVERY 8 HOURS SCHEDULED (3 times per day), First dose (after last modification) on Thu05/17/21 at 2200 2200 (Due) labetalol (NORMODYNE;TRANDATE) injection 20 mg (COMPLETED) 20 mg, Intravenous, ONCE, On Thu05/15/21 at 1000, For 1 dose 1005 (Given - Provider: Kika Moore RN) labetalol (NORMODYNE;TRANDATE) injection 20 mg (COMPLETED) 20 mg, Intravenous, ONCE, On Thu05/15/21 at 1415, For 1 dose 1423 (Given - Provider: Marisela Watson RN) levETIRAcetam (KEPPRA) 1,000 mg in sodium chloride 0.9 % 100 mL IVPB (COMPLETED) 1,000 mg, Intravenous, ONCE, 1 dose, On Thu05/15/21 at 1415, STAT 1455 (New Bag - Provider: Nidia Freedman RN)1517 (Handoff - Provider: Marisela Watson RN)1556 (Stopped - Provider: Adriano Christian, LUPE) levETIRAcetam (KEPPRA) 1,000 mg in sodium chloride 0.9 % 100 mL IVPB (CANCELED) 1,000 mg, Intravenous, EVERY 12 HOURS, First dose on Thu05/16/21 at 0900, Until Discontinued 1154 (New Bag - Provider: Adriano Christian RN)1306 (Stopped - Provider: Adriano Christian RN) levETIRAcetam (KEPPRA) tablet 1,000 mg 1,000 mg, Oral, 2 TIMES DAILY, First dose on Thu05/16/21 at 1315, Do not crush or chew. 1307 (Not Given - Provider: Adriano Christian RN - Reason: Other - Comment: IV Keppra Given)2058 (Given - Provider: Dahiana Pino RN) 906 (Given - Provider: Julissa Krishna RN)2099 (Due) potassium chloride (KLOR-CON M) extended release tablet 20 mEq (COMPLETED) 20 mEq, Oral, ONCE, On Thu05/16/21 at 0800, For 1 dose, Do not crush or break. 08 (Given - Provider: Adriano Christian RN) rosuvastatin (CRESTOR) tablet 40 mg 40 mg, Oral, NIGHTLY, First dose on Thu05/15/21 at 2100 2011 (Given - Provider: Dahiana Pino RN) 2058 (Given - Provider: Dahiana Pino RN) 2099 (Due) sodium chloride flush 0.9 % injection 5-40 mL (CANCELED) 5-40 mL, Intravenous, EVERY 12 HOURS SCHEDULED (2 times per day), First dose on Thu05/15/21 at 2100, For Line Patency: Peripheral IV = 5 [...] Midline or Central Line = 20 mL/lumen 2010 (Given - Provider: Dahiana Pino RN) 831 (Not Given - Provider: Adriano Christian RN - Reason: IV Fluid Infusing) sodium chloride flush 0.9 % injection 5-40 mL 5-40 mL, Intravenous, EVERY 12 HOURS SCHEDULED (2 times per day), First dose on Thu05/16/21 at 2100, For Line Patency: Peripheral IV = 5 [...] Midline or Central Line = 20 mL/lumen 2006 (Not Given - Provider: Dahiana Pino RN - Reason: Other - Comment: duplicate order)2099 (Given - Provider: Dahiana Pino, RN) 09 (Not Given - Provider: Julissa Krishna RN - Reason: IV Fluid Infusing)2099 (Due) Continuous Medication Order 05/15/2021 05/16/2021 05/17/2021 0.9 [...] Christian RN) 0015 (Given - Provider: Dahiana Pino RN - Comment: mild LOPEZ) acetaminophen (TYLENOL) tablet [...] 1st line 0435 (Given - Provider: Dahiana Pino RN) ondansetron (ZOFRAN) injection 4 mg 4 [...] 5-40 mL, Intravenous, PRN, Line Care, Per Sheet Ironworker Request, Starting on Thu05/15/21 at 1553, For 72 hours, May use order for Line Care after every IV line use and Agitated Saline Bubble Study. Administration for Bubble Study per advertisement distributor request for only. Remove 1 mL 0.9% [...] suppository if NPO or failed swallow screen.
Scheduled Medication Order 08/17/2025 08/18/2025 08/19/2025 ampicillin-sulbactam (Unasyn) 3,000 mg in sodium chloride 0.9 % 100 mL IVPB (Mini-Bag Plus) (COMPLETED) 3,000 mg, IntraVENous, at 200 mL/hr, Administer over 30 Minutes, Once, On 08/19/25 at 1555, For 1 dose, Mini-Bag Plus bag, Suspected Indication (Select all that apply): Skin and Soft Tissue Infection 1625 (New Bag - Prov ider: Marcy Taylor RN)1700 (Stopped - Provider: Marcy Taylor RN) bacitracin ointment (COMPLETED) Topical, Once, On 08/19/25 at 1555, For 1 dose 1625 (Given - Provid er: Marcy Taylor RN) morphine injection 2 mg (COMPLETED) 2 mg, IntraVENous, Once, On 08/19/25 at 1555, For 1 dose, If oral and injectable narcotics ordered, use oral first and only use injectable if oral is ineffective or cannot take oral. Do Not give oral and injectable within 1 hour of each other unless specifically ordered. 1624 (Given - Provid er: Marcy Taylor RN) ondansetron (Zofran) injection 4 mg (COMPLETED) 4 mg, IntraVENous, Once, On 08/19/25 at 1555, For 1 dose 1625 (Given - Provid er: Marcy Taylor RN) sodium chloride 0.9 % bolus 1,000 mL (COMPLETED) 1,000 mL, IntraVENous, at 1,000 mL/hr, Administer over 1 Hours, Once, On 08/19/25 at 1645, For 1 dose 1657 (New Bag - Prov ider: Marcy Taylor RN)1803 (Stopped - Provider: Marcy Taylor RN) (unrecognized sect ion and content) No Status Records FoundNo Status Records FoundNo Status Records FoundNo Status Records FoundNo Status Records FoundNo Status Records FoundNo Status Records FoundNo Status Records FoundNo Status Records Found INFORMATION SOURCE (unrecogn ized section and content) DATE CREATED AUTHOR [facility]/25/2021 [facility] DATE CREATED AUTHOR AUTHOR'S ORGANIZ ATION 08/31/2021 [facility] DATE CREATED AUTHOR AUTHOR'S ORGANIZ ATION 11/22/2021 [facility] DATE CREATED AUTHOR AUTHOR'S ORGANIZ ATION 12/10/2022 [facility] ([place] DATE CREATED AUTHOR AUTHOR'S ORGANIZ ATION 10/21/2023 [facility] DATE CREATED AUTHOR AUTHOR'S ORGANIZ ATION 08/31/2025 [facility] DATE CREATED AUTHOR AUTHOR'S ORGANIZ ATION 09/02/2025 [facility] DATE CREATED AUTHOR AUTHOR'S ORGANIZ ATION 09/07/2025 [facility] DATE CREATED AUTHOR AUTHOR'S ORGANIZ ATION 09/16/2025 [facility] Goals (unrecognized section and content) Goals may be documented in a n alternate sectionGoals may be documented in an alternate sectionGoals may be documented in an alternate sectionGoals may be documented in an alternate section No data available for this sectionGoals may be documented in an alternate sectionGoals may be documented in an alternate sectionGoals may be documented in an alternate sectionGoals may be documented in an alternate sectionGoals may be documented in an alternate sectionGoals may be documented in an alternate sectionGoals may be documented in an alternate sectionGoals may be documented in an alternate sectionGoals may be documented in an alternate sectionGoals may be documented in an alternate section Care Team (unrecognized sect ion and content) Care Team Personnel Name: KINSEY KING MD Position: P4 Oncology Provider Member Role: Radiation Oncologist Address: Address: [address] [place] [address] Radiation Oncology [place], [place] [address] Name: JACOB JENNINGS DO Member Role: Primary Care Physician Address: Address: [address] [place] [address] Care Team Related Persons Name: HAYLIE ARSHAD Address: Home [address] [place], [place] [id number] [address] Care Teams (unrecognized sec tion and content) Team Status: Active Member Role Status Dates Dr. Jacob Jennings DO Family Provider Active Dr. Jacob Jennings DO Primary Care Provider Active Team Status: Inactive Member Role Status Dates Dr. Jacob Jennings DO Primary Care Provider, Referr ing Provider Active Dr. Angela Rodriguez MD Attending Provider Active Team Status: Inactive Member Role Status Dates Dr. Jacob Jennings DO Primary Care Provider, Referr ing Provider Active Verónica Meadows CHARGE OUT CLERK, CHARGE OUT CLERK-C Attending Provider Active Team Status: Inactive Member Role Status Dates Dr. Jacob Jennings DO Primary Care Provider Active Verónica Meadows CHARGE OUT CLERK, CHARGE OUT CLERK-C Attending Provider Active Team Status: Inactive Member Role Status Dates Dr. Jacob Jennings , DO Primary Care Provider, Referr ing Provider Active Dr. Percy Tao , DO Attending Provider Active Team Status: Active Member Role Status Dates Dr. Jacob Jennings DO Primary Care Provider Active Mahesh Menon MD Emergency Provider Active Dr. Amber Cat MD Admit Provider, Other Provider Active Dr. Emmanuel Kaiser MD Attending Provider, Other Provi keira Active Team Status: Inactive Member Role Status Dates Dr. Jacob Jennings , DO Primary Care Provider, Referr ing Provider Active Dr. Benito Malcolm , DO Attending Provider Active Team Status: Active Member Role Status Dates Dr. Jacob Jennings , DO Primary Care Provider Active Dr. Benito Malcolm , DO Referring Provider, Other Provide r Active Dr. Thaddeus Patel MD Attending Provider Active Team Status: Active Member Role Status Dates Dr. Jacob Jennings DO Primary Care Provider Active Dr. Benito Malcolm , DO Attending Provider, Other Provide r Active Team Status: Active Member Role Status Dates Dr. Jacob Jennings DO Primary Care Provider Active Dr. Angela Rodriguez MD Attending Provider, Referrin g Provider Active Team Status: Inactive Member Role Status Dates Dr. Jacob Jennings DO Primary Care Provider Active Verónica Meadows CHARGE OUT CLERK, CHARGE OUT CLERK-C Attending Provider, Referring Provider Active Team Status: Inactive Member Role Status Dates Dr. Jacob Jennings DO Primary Care Provider Active Mahesh Menon MD Emergency Provider Active Dr. Amber Cat MD Admit Provider, Other Provider Active Dr. Emmanuel Kaiser MD Attending Provider Active Team Status: Inactive Member Role Status Dates Dr. Jacob Jennings DO Primary Care Provider Active Dr. Benito Malcolm , DO Attending Provider, Referring Pro vider Active Team Status: Active Member Role Status Dates Dr. Jacob Jennings DO Primary Care Provider Active Dr. Benito Malcolm DO Attending Provider Active Team Status: Inactive Member Role Status Dates Dr. Jacob Jennings DO Primary Care Provider Active Dr. Benito Malcolm , DO Attending Provider Active Team Status: Active Member Role Status Dates Dr. Jacob Jennings DO Primary Care Provider Active Dr. Pineda Porter MD Attending Provider Active Team Status: Inactive Member Role Status Dates Dr. Jacob Jennings , DO Primary Care Provider Active Dr. Percy Tao , DO Attending Provider Active Team Status: Inactive Member Role Status Dates Dr. Jacob Jennings , DO Primary Care Provider, Referr ing Provider Active Dr. Thien Sandoval MD Attending Provider Active Team Status: Active Member Role Status Dates Dr. Jacob Jennings , DO Primary Care Provider Active Dr. Benito Malcolm , DO Attending Provider, Referring Provider, Other Provider Active Team Status: Active Member Role Status Dates Dr. Jacob Jennings , DO Primary Care Provider Active Verónica Meadows CHARGE OUT CLERK, CHARGE OUT CLERK-C Attending Provider, Referring Provider Active Team Status: Inactive Member Role Status Dates Dr. Jacob Jennings , DO Primary Care Provider, Referr ing Provider Active Monalisa Dunne CHARGE OUT CLERK, CHARGE OUT CLERK-C Attending Provider Active Team Status: Inactive Member Role Status Dates Dr. Jacob Jennings , DO Primary Care Provider Active Dr. Eduard Pratt , DO Attending Provider, Emergency P abimael Active Team Status: Active Member Role Status Dates Dr. Jacob Jennings , DO Primary Care Provider Active Dr. Indio Simon MD Emergency Provider Active Dr. Tara Mae , DO Admit Provider, Attending Provide r Active Team Status: Active Member Role Status Dates Dr. Jacob Jennings , DO Primary Care Provider Active Dr. Indio Simon MD Emergency Provider Active Dr. Tara Mae , DO Admit Provider, Other Provider Ac tive Dr. Thaddeus Patel MD Attending Provider, Other Provid er Active Dr. Benito Malcolm , DO Other Provider Active Dr. Tu Zhang MD Other Provider Active Dr. Jm Varner MD Other Provider Active Monalisa Dunne CHARGE OUT CLERK, CHARGE OUT CLERK-C Other Provider Active Team Status: Active Member Role Status Dates Dr. Jacob Jennings , DO Primary Care Provider Active Dr. Indio Simon MD Emergency Provider Active Dr. Tara Mae , DO Admit Provider, Att ending Provider, Other Provider Active Dr. Thaddeus Patel MD Other Provider Active Dr. Benito Malcolm , DO Other Provider Active Dr. Tu Zhang MD Other Provider Active Dr. Jm Varner MD Other Provider Active Monalisa Dunne CHARGE OUT CLERK, CHARGE OUT CLERK-C Other Provider Active Team Status: Active Member Role Status Dates Dr. Jacob Jennings , DO Primary Care Provider Active Dr. Indio Simon MD Emergency Provider Active Dr. Tara Mae , DO Admit Provider, Other Provider Ac tive Dr. Thaddeus Patel MD Other Provider Active Dr. Benito Malcolm , DO Attending Provider, Other Provide r Active Dr. Tu Zhang MD Other Provider Active Dr. Jm Varner MD Other Provider Active Monalisa Dunne CHARGE OUT CLERK, CHARGE OUT CLERK-C Other Provider Active Dr. Khalif Quevedo , DO Other Provider Active Team Status: Active Member Role Status Dates Dr. Jacob Jennings , DO Primary Care Provider Active Dr. Indio Simon MD Emergency Provider Active Dr. Tara Mae , DO Admit Provider, Other Provider Ac tive Dr. Thaddeus Patel MD Other Provider Active Dr. Benito Malcolm , DO Other Provider Active Dr. Tu Zhang MD Other Provider Active Dr. Jm Varner MD Other Provider Active Monalisa Dunne CHARGE OUT CLERK, CHARGE OUT CLERK-C Other Provider Active Dr. Khalif Quevedo , DO Other Provider Active Dr. Michael Chambers , DO Attending Provider Active Team Status: Active Member Role Status Dates Dr. Jacob Jennings , DO Primary Care Provider Active Dr. Indio Simon MD Emergency Provider Active Dr. Tara Mae , DO Admit Provider, Other Provider Ac tive Dr. Thaddeus Patel MD Other Provider Active Dr. Benito Malcolm , DO Other Provider Active Dr. Tu Zhang MD Other Provider Active Dr. Jm Varner MD Other Provider Active Monalisa Dunne CHARGE OUT CLERK, CHARGE OUT CLERK-C Other Provider Active Dr. Khalif Quevedo , Attending Provider, Other Provid er Active Team Status: Active Member Role Status Dates Dr. Jacob Jennings , DO Primary Care Provider Active Dr. Michael Chambers , DO Attending Provider Active Team Status: Inactive Member Role Status Dates Dr. Jacob Jennings , DO Primary Care Provider Active Dr. Indio Simon MD Emergency Provider Active Dr. Tara Mae , DO Admit Provider, Other Provider Ac tive Dr. Thaddeus Patel MD Other Provider Active Dr. Benito Malcolm , DO Other Provider Active Dr. Tu Zhang MD Other Provider Active Dr. Jm Varner MD Other Provider Active Monalisa Dunne CHARGE OUT CLERK, CHARGE OUT CLERK-C Other Provider Active Dr. Khalif Quevedo DO Attending Provider Active Cold Rolling Supervisor Relationship Specialty Start Date End Date Jacob Jennings DO [address] [place] [address] PCP - General 05/28/15 Cold Rolling Supervisor Relationship Specialty Start Date End Date Jacob Jennings DO [address] [place] [address] PCP - General 05/28/15 Cold Rolling Supervisor Relationship Specialty Start Date End Date Jacob Jennings DO [address] [place] [id number] PCP - General 05/28/15 Cold Rolling Supervisor Relationship Specialty Start Date End Date Jacob Jennings [address] [place] [address] PCP - General Family Medicine 12/20/18 Cold Rolling Supervisor Relationship Specialty Start Date End Date Jacob Jennings [address] [place], [place] [id number] PCP - General Family Medicine 12/20/18 Cold Rolling Supervisor Relationship Specialty Start Date End Date Jacob Jennings [address] [place] [address] PCP - General Family Medicine 12/20/18 Cold Rolling Supervisor Relationship Specialty Start Date End Date Jacob Jennings [address] [place], [place] [id number] PCP - General Family Medicine 12/20/18 Team Status: Active Member Role Status Dates Dr. Jacob Jennings DO Primary Care Provider Active Dr. Indio Simon MD Emergency Provider Active Dr. Tara Mae DO Admit Provider, Other Provider Ac tive Dr. Thaddeus Patel MD Attending Provider, Other Provid er Active Dr. Benito Malcolm , DO Other Provider Active Dr. Tu Zhang MD Other Provider Active Dr. Jm Varner MD Other Provider Active Monalisa Dunne CHARGE OUT CLERK, CHARGE OUT CLERK-C Other Provider Active Dr. Khalif Quevedo , DO Referring Provider Active Team Status: Active Member Role Status Dates Dr. Jacob Jennings , DO Primary Care Provider Active Dr. Indio Simon MD Emergency Provider Active Dr. Tara Mae , DO Admit Provider, Other Provider Ac tive Dr. Thaddeus Patel MD Other Provider Active Dr. Benito Malcolm , DO Attending Provider, Other Provide r Active Dr. Tu Zhang MD Other Provider Active Dr. Jm Varner MD Other Provider Active Monalisa Dunne CHARGE OUT CLERK, CHARGE OUT CLERK-C Other Provider Active Dr. Khalif Quevedo , DO Referring Provider, Other Provid er Active Team Status: Active Member Role Status Dates Dr. Jacob Jennings , DO Primary Care Provider Active Dr. Indio Simon MD Emergency Provider Active Dr. Tara Mae , DO Admit Provider, Other Provider Ac tive Dr. Thaddeus Paetl MD Other Provider Active Dr. Benito Malcolm , DO Other Provider Active Dr. Tu Zhang MD Other Provider Active Dr. Jm Varner MD Other Provider Active Monalisa Dunne CHARGE OUT CLERK, CHARGE OUT CLERK-C Other Provider Active Dr. Khalif Quevedo , DO Referring Provider, Other Provid er Active Dr. Michael Chambers , DO Attending Provider Active Team Status: Active Member Role Status Dates Dr. Jacob Jennings , DO Primary Care Provider Active Dr. Michael Chambers , DO Attending Provider Active Dr. Khalif Quevedo , Referring Provider Active Team Status: Inactive Member Role Status Dates Dr. Jacob Jennings , DO Primary Care Provider Active Dr. Angela Rodriguez MD Attending Provider, Referrin g Provider Active Cold Rolling Supervisor Relationship Specialty Start Date End Date Jacob Jennings [address] [place], [place] [id number] PCP - General Family Medicine 12/20/18 Cold Rolling Supervisor Relationship Specialty Start Date End Date Jacob Jennings DO [address] [place], [place] [id number] PCP - General 05/28/15 Cold Rolling Supervisor Relationship Specialty Start Date End Date Jacob Jennings [address] [place] [address] PCP - General Family Medicine 12/20/18 Cold Rolling Supervisor Relationship Specialty Start Date End Date Jacob Jennings [address] [place] [address] PCP - General Family Medicine 12/20/18 Cold Rolling Supervisor Relationship Specialty Start Date End Date Jacob Jennings [address] [place] [address] PCP - General Family Medicine 12/20/18 Cold Rolling Supervisor Relationship Specialty Start Date End Date AnamikaharishJacob archuleta [address] [place] [address] PCP - General Family Medicine 12/20/18 Team Status: Inactive Member Role Status Dates Dr. Jacob Jennings , DO Primary Care Provider Active Verónica Meadows CHARGE OUT CLERK, CHARGE OUT CLERK-C Active Dr. Angela Rodriguez MD Attending Provider, Ref[facility] g Provider Active Cold Rolling Supervisor Relationship Specialty Start Date End Date Jacob Jennings, [address] [place] [address] PCP - General Family Medicine 12/20/18 Team Status: Inactive Member Role Status Dates Dr. Jacob Jennings , DO Primary Care Provider Active Dr. Khalif Horan , DO Emergency Provider Active Cold Rolling Supervisor Relationship Specialty Start Date End Date Jacob Jennings, [address] [place] [address] PCP - General Family Medicine 12/20/18 Cold Rolling Supervisor Relationship Specialty Start Date End Date Jacob Jennings DO [address] [place] [address] PCP - General 05/28/15 Cold Rolling Supervisor Relationship Specialty Start Date End Date Jacob Jennings DO [address] [place] [address] PCP - General 05/28/15 Cold Rolling Supervisor Relationship Specialty Start Date End Date Jacob Jennings DO [address] [place] [address] PCP - General 05/28/15 Cold Rolling Supervisor Relationship Specialty Start Date End Date Jacob Jennings DO [address] [place] [address] PCP - General 05/28/15 Team Status: Inactive Member Role Status Dates Dr. Jacob Jennings DO Primary Care Provider, Referr ing Provider Active Verónica Meadows CHARGE OUT CLERK, CHARGE OUT CLERK-C Active Dr. Lj Piña MD Attending Provider Active Team Status: Active Member Role Status Dates Dr. Jacob Jennings DO Primary Care Provider Active Johanna Flynn Attending Provider Active Team Status: Inactive Member Role Status Dates Dr. Jacob Jennings DO Primary Care Provider Active Dr. Khalif Horan DO Attending Provider, Emergency P abimael Active Team Status: Inactive Member Role Status Dates Dr. Jacob Jennings DO Primary Care Provider, Referr ing Provider Active Dr. Greg Sutherland MD Attending Provider Active Team Status: Inactive Member Role Status Dates Dr. Jacob Jennings DO Primary Care Provider Active Dr. Thien Sandoval MD Attending Provider Active Cold Rolling Supervisor Relationship Specialty Start Date End Date Jacob Jennings DO [address] [place] [id number] PCP - General Family Medicine 12/20/18 Cold Rolling Supervisor Relationship Specialty Start Date End Date Jacob Jennings DO [address] [place] [address] PCP - General Family Medicine 12/20/18 Team Status: Inactive Member Role Status Dates Dr. Jacob Jennings DO Primary Care Provider Active Dr. Greg Sutherland MD Attending Provider, Referring Pr ovider Active Team Status: Active Member Role Status Dates Dr. Jacob Jennings DO Primary Care Provider Active Dr. Greg Sutherland MD Attending Provider , Referring Provider, Other Provider Active Team Status: Active Member Role Status Dates Dr. Jacob Jennings DO Primary Care Provider Active Dr. Greg Sutherland MD Admit Provider, Re ferring Provider, Other Provider Active Dr. Antwan Covington DO Attending Provider, Other Pr ovider Active Team Status: Active Member Role Status Dates Dr. Jacob Jennings DO Primary Care Provider Active Dr. Greg Sutherland MD Admit Provider, Re ferring Provider, Other Provider Active Dr. Antwan Covington DO Other Provider Active Dr. Antwan Pitts MD Attending Provider, Other Provid er Active Team Status: Active Member Role Status Dates Dr. Jacob Jennings DO Primary Care Provider Active Dr. Greg Sutherland MD Admit Provider, At tending Provider, Referring Provider, Other Provider Active Dr. Antwan Covington DO Other Provider Active Dr. Antwan Pitts MD Other Provider Active Team Status: Active Member Role Status Dates Dr. Jacob Jennings DO Primary Care Provider Active Dr. Saige Day MD Attending Provider Activ e Dr. Greg Sutherland MD Referring Provider Active Team Status: Inactive Member Role Status Dates Dr. Jacob Jennings DO Primary Care Provider Active Dr. Greg Sutherland MD Admit Provider, Re ferring Provider, Other Provider Active Dr. Antwan Covington DO Other Provider Active Dr. Antwan Pitts MD Attending Provider Active Cold Rolling Supervisor Relationship Specialty Start Date End Date PiperpiperJacob DO [address] [place] [id number] PCP - General 05/28/15 Cold Rolling Supervisor Relationship Specialty Start Date End Date Jacob Jennings Sharda, DO [address] [place] [address] PCP - General 05/28/15 Cold Rolling Supervisor Relationship Specialty Start Date End Date Jacob Jennings Sharda, DO [address] [place], [place] [id number] PCP - General Family Medicine 12/20/18 Cold Rolling Supervisor Relationship Specialty Start Date End Date Jacob Jennings Sharda, [address] [place], [place] [id number] PCP - General Family Medicine 12/20/18 Cold Rolling Supervisor Relationship Specialty Start Date End Date Jacob Jennings Sharda, DO [address] [place], [place] [id number] PCP - General Family Medicine 12/20/18 Cold Rolling Supervisor Relationship Specialty Start Date End Date Jacob Jennings, DO [address] [place] [id number] PCP - General 05/28/15 Cold Rolling Supervisor Relationship Specialty Start Date End Date Jacob Jennings Sharda, DO [address] [place] [address] PCP - General 05/28/15 Cold Rolling Supervisor Relationship Specialty Start Date End Date Jacob Jennings Sharda, [address] [place] [id number] PCP - General 05/28/15 Cold Rolling Supervisor Relationship Specialty Start Date End Date Jacob Jennings, DO [address] [place] [phone] PCP - General 05/28/15 Cold Rolling Supervisor Relationship Specialty Start Date End Date Jacob Jennings DO [address] [place] [address] PCP - General Family Medicine 12/20/18 Cold Rolling Supervisor Relationship Specialty Start Date End Date Jacob Jennings [address] [place] [address] PCP - General 05/28/15 Cold Rolling Supervisor Relationship Specialty Start Date End Date Jacob Jennings, DO [address] [place] [address] PCP - General 05/28/15 Cold Rolling Supervisor Relationship Specialty Start Date End Date Jacob Jennings, DO [address] [place] [address] PCP - General 05/28/15 Cold Rolling Supervisor Relationship Specialty Start Date End Date Jacob Jennings, DO [address] [place] [address] PCP - General 05/28/15 Cold Rolling Supervisor Relationship Specialty Start Date End Date Jacob Jennings, DO [address] [place] [address] PCP - General 05/28/15 Cold Rolling Supervisor Relationship Specialty Start Date End Date Jacob Jennings, DO [address] [place] [address] PCP - General 05/28/15 Cold Rolling Supervisor Relationship Specialty Start Date End Date Jacob Jennings, [address] [place], [place] [id number] PCP - General Family Medicine 12/20/18 Cold Rolling Supervisor Relationship Specialty Start Date End Date AnamikaJacob alicea, DO [address] [facility] [address] PCP - General Family Medicine 12/20/18 Cold Rolling Supervisor Relationship Specialty Start Date End Date Jacob Jennings, DO [address] [place] [address] PCP - General Family Medicine 12/20/18 Cold Rolling Supervisor Relationship Specialty Start Date End Date Jacob Jennings, DO [address] [place], [place] [id number] PCP - General Family Medicine 12/20/18 Cold Rolling Supervisor Relationship Specialty Start Date End Date Jacob Jennings, DO [address] [place] [id number] PCP - General 05/28/15 Cold Rolling Supervisor Relationship Specialty Start Date End Date Jacob Jennings, DO [address] [place] [phone] PCP - General 05/28/15 Cold Rolling Supervisor Relationship Specialty Start Date End Date Jacob Jennings, DO [address] [place] [address] PCP - General 05/28/15 Cold Rolling Supervisor Relationship Specialty Start Date End Date Jacob Jennings, DO [address] [place] [id number] PCP - General 05/28/15 Cold Rolling Supervisor Relationship Specialty Start Date End Date AnamikawhitneyJacob DO [address] [place] [address] PCP - General 05/28/15 Cold Rolling Supervisor Relationship Specialty Start Date End Date Jacob Jennings DO [address] [place] [address] PCP - General 05/28/15 Cold Rolling Supervisor Relationship Specialty Start Date End Date DickJacob DO [address] [place] [address] PCP - General 05/28/15 Cold Rolling Supervisor Relationship Specialty Start Date End Date Jacob Jennings DO Sharda [address] [place] [address] PCP - General 05/28/15 Team Status: Active Member Role Status Dates Dr. Jacob Jennings DO Primary Care Provider Active Team Status: Inactive Member Role Status Dates Dr. Jacob Jennings DO Primary Care Provider Active Start: November 29, 2024 End: November 29, 2024 Dr. Jacob Jennings DO Referring Provider Active Start: November 29, 2024 End: November 29, 2024 Dr. Michael Chambers DO Attending Provider Active Start: November 29, 2024 End: November 29, 2024 Team Status: Inactive Member Role Status Dates Dr. Jacob Jennings DO Primary Care Provider Active Start: December 02, 2024 End: December 02, 2024 Dr. Jacob Jennings DO Referring Provider Active Start: December 02, 2024 End: December 02, 2024 IVETH Riddle Attending Provider Active Sta rt: December 02, 2024 End: December 02, 2024 Team Status: Inactive Member Role Status Dates Dr. Jacob Jennings DO Primary Care Provider Active Start: December 14, 2024 End: December 16, 2024 Mahesh Menon MD Referring Provider Active Star t: December 14, 2024 End: December 16, 2024 Mahesh Menon MD Emergency Provider Active Star t: December 14, 2024 End: December 16, 2024 Dr. Sayra Fuentes MD Admit Provider Active St art: December 14, 2024 End: December 16, 2024 Dr. Sayra Fuentes MD Other Provider Active St art: December 14, 2024 End: December 16, 2024 Dr. Amber Cat MD Attending Provider Active Start: December 14, 2024 End: December 16, 2024 Team Status: Active Member Role Status Dates Dr. Jacob Jennings DO Primary Care Provider Active Start: December 15, 2024 Mahesh Menon MD Emergency Provider Active Star t: December 15, 2024 Dr. Sayra Fuentes MD Admit Provider Active St art: December 15, 2024 Dr. Sayra Fuentes MD Other Provider Active St art: December 15, 2024 Dr. Amber Cat MD Attending Provider Active Start: December 15, 2024 Dr. Amber Cat MD Other Provider Active St art: December 15, 2024 Team Status: Active Member Role Status Dates Dr. Jacob Jennings DO Primary Care Provider Active Start: December 16, 2024 Mahesh Menon MD Emergency Provider Active Star t: December 16, 2024 Dr. Sayra Fuentes MD Admit Provider Active St art: December 16, 2024 Dr. Sayra Fuentes MD Other Provider Active St art: December 16, 2024 Dr. Amber Cat MD Attending Provider Active Start: December 16, 2024 Dr. Amber Cat MD Other Provider Active St art: December 16, 2024 Team Status: Inactive Member Role Status Dates Dr. Jacob Jennings DO Primary Care Provider Active Start: December 21, 2024 End: December 21, 2024 Dr. Jacob Jennings DO Referring Provider Active Start: December 21, 2024 End: December 21, 2024 Verónica Meadows CHARGE OUT CLERK, CHARGE OUT CLERK-C Attending Provider Active Start: December 21, 2024 End: December 21, 2024 Team Status: Inactive Member Role Status Dates Dr. Jacob Jennings DO Primary Care Provider Active Start: January 07, 2025 End: January 07, 2025 Dr. Indio Simon MD Attending Provider Active Start: January 07, 2025 End: January 07, 2025 Dr. Indio Simon MD Emergency Provider Active Start: January 07, 2025 End: January 07, 2025 Team Status: Active Member Role Status Dates Dr. Jacob Jennings DO Primary Care Provider Active Start: January 10, 2025 Dr. Indio Simon MD Emergency Provider Active Start: January 10, 2025 Dr. Chris Medina DO Attending Provider Active Start: January 10, 2025 Team Status: Inactive Member Role Status Dates Dr. Jacob Jennings DO Primary Care Provider Active Start: January 10, 2025 End: January 18, 2025 Dr. Indio Simon MD Emergency Provider Active Start: January 10, 2025 End: January 18, 2025 Dr. Chris Medina DO Admit Provider Active Start: January 10, 2025 End: January 18, 2025 Dr. Chris Medina DO Other Provider Active Start: January 10, 2025 End: January 18, 2025 Dr. Katlin Dwyer MD Other Provider Active St art: January 10, 2025 End: January 18, 2025 Dr. Antwan Pitts MD Other Provider Active Star t: January 10, 2025 End: January 18, 2025 Dr. Evelio Hong MD Attending Provider Active Start: January 10, 2025 End: January 18, 2025 Team Status: Active Member Role Status Dates Dr. Jacob Jennings DO Primary Care Provider Active Start: January 11, 2025 Dr. Indio Simon MD Emergency Provider Active Start: January 11, 2025 Dr. Chris Medina DO Admit Provider Active Start: January 11, 2025 Dr. Chris Medina DO Other Provider Active Start: January 11, 2025 Dr. Katlin Dwyer MD Attending Provider Active Start: January 11, 2025 Dr. Katlin Dwyer MD Other Provider Active St art: January 11, 2025 Team Status: Active Member Role Status Dates Dr. Jacob Jennings DO Primary Care Provider Active Start: January 11, 2025 Dr. Eduin Narvaez MD Attending Provider Active Start: January 11, 2025 Team Status: Active Member Role Status Dates Dr. Jacob Jennings DO Primary Care Provider Active Start: January 12, 2025 Dr. Indio Simon MD Emergency Provider Active Start: January 12, 2025 Dr. Chris Medina DO Admit Provider Active Start: January 12, 2025 Dr. Chris Medina DO Other Provider Active Start: January 12, 2025 Dr. Katlin Dwyer MD Attending Provider Active Start: January 12, 2025 Dr. Katlin Dwyer MD Other Provider Active St art: January 12, 2025 Dr. Megha Erazo MD Other Provider Active Start: January 12, 2025 Dr. Rene Cutler MD Other Provider Active Start: January 12, 2025 Dr. Thaddeus Patel MD Other Provider Active Star t: January 12, 2025 Dr. Benito Malcolm DO Other Provider Active Start : January 12, 2025 Dr. Antwan Radford MD Other Provider Active Sta rt: January 12, 2025 Dr. Sebastian Howe MD Other Provider Active St art: January 12, 2025 Dr. Obi Hernandez MD Other Provider Active S tart: January 12, 2025 Dr. Laura Ribera MD Other Provider Active Start: January 12, 2025 Dr. Chapincito Ortiz MD Other Provider Active Start : January 12, 2025 Dr. Santino Martel MD Other Provider Active Start: January 12, 2025 Dr. Jamal Montes De Oca MD Other Provider Active Start : January 12, 2025 Dr. Ana Maria Flores MD Other Provider Active Star t: January 12, 2025 Dr. Korey Santamaria MD Other Provider Active Sta rt: January 12, 2025 Dr. Ciara Almaraz MD Other Provider Active Sta rt: January 12, 2025 Dr. Moses Andersen MD Other Provider Active Star t: January 12, 2025 Dr. Parker Marshall MD Other Provider Active St art: January 12, 2025 Dr. Indra Garces MD Other Provider Active Star t: January 12, 2025 Dr. Kasi Tarango DO Other Provider Active St art: January 12, 2025 Dr. Yasmin Villasenor MD Other Provider Active Start: January 12, 2025 Dr. Pacheco Bhatia MD Other Provider Active St art: January 12, 2025 Dr. Tyrell Mayo DO Other Provider Active Start: January 12, 2025 Dr. Dimas Gallegos MD Other Provider Active Star t: January 12, 2025 Dr. Lalo Leo MD Other Provider Active Sta rt: January 12, 2025 Team Status: Active Member Role Status Dates Dr. Jacob Jennings DO Primary Care Provider Active Start: January 13, 2025 Dr. Indio Simon MD Emergency Provider Active Start: January 13, 2025 Dr. Chris Medina DO Admit Provider Active Start: January 13, 2025 Dr. Chris Medina DO Referring Provider Active Start: January 13, 2025 Dr. Chris Medina DO Other Provider Active Start: January 13, 2025 Dr. Katlin Dwyer MD Other Provider Active St art: January 13, 2025 Dr. Megha Erazo MD Other Provider Active Start: January 13, 2025 Dr. Rene Cutler MD Other Provider Active Start: January 13, 2025 Dr. Thaddeus Patel MD Other Provider Active Star t: January 13, 2025 Dr. Benito Malcolm DO Attending Provider Active S tart: January 13, 2025 Dr. Benito Malcolm DO Other Provider Active Start : January 13, 2025 Dr. Antwan Radford MD Other Provider Active Sta rt: January 13, 2025 Dr. Sebastian Howe MD Other Provider Active St art: January 13, 2025 Dr. Obi Hernandez MD Other Provider Active S tart: January 13, 2025 Dr. Laura Ribera MD Other Provider Active Start: January 13, 2025 Dr. Chapincito Ortiz MD Other Provider Active Start : January 13, 2025 Dr. Santino Martel MD Other Provider Active Start: January 13, 2025 Dr. Jamal Montes De Oca MD Other Provider Active Start : January 13, 2025 Dr. Ana Maria Flores MD Other Provider Active Star t: January 13, 2025 Dr. Korey Santamaria MD Other Provider Active Sta rt: January 13, 2025 Dr. Ciara Almaraz MD Other Provider Active Sta rt: January 13, 2025 Dr. Moses Andersen MD Other Provider Active Star t: January 13, 2025 Dr. Parker Marshall MD Other Provider Active St art: January 13, 2025 Dr. Indra Garces MD Other Provider Active Star t: January 13, 2025 Dr. Kasi Tarango DO Other Provider Active St art: January 13, 2025 Dr. Yasmin Villasenor MD Other Provider Active Start: January 13, 2025 Dr. Pacheco Bhatia MD Other Provider Active St art: January 13, 2025 Dr. Tyrell Mayo DO Other Provider Active Start: January 13, 2025 Dr. Dimas Gallegos MD Other Provider Active Star t: January 13, 2025 Dr. Lalo Leo MD Other Provider Active Sta rt: January 13, 2025 Team Status: Active Member Role Status Dates Dr. Jacob Jennings DO Primary Care Provider Active Start: January 13, 2025 Dr. Indio Simon MD Emergency Provider Active Start: January 13, 2025 Dr. Chris Medina DO Admit Provider Active Start: January 13, 2025 Dr. Chris Medina DO Other Provider Active Start: January 13, 2025 Dr. Katlin Dwyer MD Attending Provider Active Start: January 13, 2025 Dr. Katlin Dwyer MD Other Provider Active St art: January 13, 2025 Dr. Megha Erazo MD Other Provider Active Start: January 13, 2025 Dr. Rene Cutler MD Other Provider Active Start: January 13, 2025 Dr. Thaddeus Patel MD Other Provider Active Star t: January 13, 2025 Dr. Benito Malcolm DO Other Provider Active Start : January 13, 2025 Dr. Antwan Radford MD Other Provider Active Sta rt: January 13, 2025 Dr. Sebastian Howe MD Other Provider Active St art: January 13, 2025 Dr. Obi Hernandez MD Other Provider Active S tart: January 13, 2025 Dr. Laura Ribera MD Other Provider Active Start: January 13, 2025 Dr. Chapincito Ortiz MD Other Provider Active Start : January 13, 2025 Dr. Santino Martel MD Other Provider Active Start: January 13, 2025 Dr. Jamal Montes De Oca MD Other Provider Active Start : January 13, 2025 Dr. Ana Maria Flores MD Other Provider Active Star t: January 13, 2025 Dr. Korey Santamaria MD Other Provider Active Sta rt: January 13, 2025 Dr. Ciara Almaraz MD Other Provider Active Sta rt: January 13, 2025 Dr. Moses Andersen MD Other Provider Active Star t: January 13, 2025 Dr. Parker Marshall MD Other Provider Active St art: January 13, 2025 Dr. Indra Garces MD Other Provider Active Star t: January 13, 2025 Dr. Kasi Tarango , Other Provider Active St art: January 13, 2025 Dr. Yasmin Villasenor MD Other Provider Active Start: January 13, 2025 Dr. Pacheco Bhatia MD Other Provider Active St art: January 13, 2025 Dr. Tyrell Mayo DO Other Provider Active Start: January 13, 2025 Dr. Dimas Gallegos MD Other Provider Active Star t: January 13, 2025 Dr. Lalo Leo MD Other Provider Active Sta rt: January 13, 2025 Team Status: Active Member Role Status Dates Dr. Jacob Jennings DO Primary Care Provider Active Start: January 13, 2025 Dr. Indio Simon MD Emergency Provider Active Start: January 13, 2025 Dr. Chris Medina DO Admit Provider Active Start: January 13, 2025 Dr. Chris Medina DO Other Provider Active Start: January 13, 2025 Dr. Katlin Dwyer MD Other Provider Active St art: January 13, 2025 Dr. Megha Erazo MD Other Provider Active Start: January 13, 2025 Dr. Rene Cutler MD Other Provider Active Start: January 13, 2025 Dr. Thaddeus Patel MD Other Provider Active Star t: January 13, 2025 Dr. Benito Malcolm DO Other Provider Active Start : January 13, 2025 Dr. Antwan Radford MD Other Provider Active Sta rt: January 13, 2025 Dr. Sebastian Howe MD Other Provider Active St art: January 13, 2025 Dr. Obi Hernandez MD Other Provider Active S tart: January 13, 2025 Dr. Laura Ribera MD Other Provider Active Start: January 13, 2025 Dr. Chapincito Ortiz MD Other Provider Active Start : January 13, 2025 Dr. Santino Martel MD Other Provider Active Start: January 13, 2025 Dr. Jamal Montes De Oca MD Other Provider Active Start : January 13, 2025 Dr. Ana Maria Flores MD Other Provider Active Star t: January 13, 2025 Dr. Korey Santamaria MD Other Provider Active Sta rt: January 13, 2025 Dr. Ciara Almaraz MD Other Provider Active Sta rt: January 13, 2025 Dr. Moses Andersen MD Other Provider Active Star t: January 13, 2025 Dr. Parker Marshall MD Other Provider Active St art: January 13, 2025 Dr. Indra Garces MD Other Provider Active Star t: January 13, 2025 Dr. Kasi Tarango DO Other Provider Active St art: January 13, 2025 Dr. Yasmin Villasenor MD Other Provider Active Start: January 13, 2025 Dr. Pacheco Bhatia MD Other Provider Active St art: January 13, 2025 Dr. Tyrell Mayo DO Other Provider Active Start: January 13, 2025 Dr. Dimas Gallegos MD Other Provider Active Star t: January 13, 2025 Dr. Lalo Leo MD Other Provider Active Sta rt: January 13, 2025 Dr. Michael Chambers DO Attending Provider Active Start: January 13, 2025 Dr. Antwan Pitts MD Referring Provider Active Start: January 13, 2025 Team Status: Active Member Role Status Dates Dr. Jacob Jennings DO Primary Care Provider Active Start: January 14, 2025 Dr. Indio Simon MD Emergency Provider Active Start: January 14, 2025 Dr. Chris Medina DO Admit Provider Active Start: January 14, 2025 Dr. Chris Medina DO Other Provider Active Start: January 14, 2025 Dr. Megha Erazo MD Other Provider Active Start: January 14, 2025 Dr. Rene Cutler MD Other Provider Active Start: January 14, 2025 Dr. Thaddeus Patel MD Other Provider Active Star t: January 14, 2025 Dr. Benito Malcolm DO Other Provider Active Start : January 14, 2025 Dr. Antwan Radford MD Other Provider Active Sta rt: January 14, 2025 Dr. Sebastian Howe MD Other Provider Active St art: January 14, 2025 Dr. Obi Hernandez MD Other Provider Active S tart: January 14, 2025 Dr. Laura Ribera MD Other Provider Active Start: January 14, 2025 Dr. Chapincito Ortiz MD Other Provider Active Start : January 14, 2025 Dr. Santino Martel MD Other Provider Active Start: January 14, 2025 Dr. Jamal Montes De Oca MD Other Provider Active Start : January 14, 2025 Dr. Ana Maria Flores MD Other Provider Active Star t: January 14, 2025 Dr. Korey Santamaria MD Other Provider Active Sta rt: January 14, 2025 Dr. Ciara Almaraz MD Other Provider Active Sta rt: January 14, 2025 Dr. Moses Andersen MD Other Provider Active Star t: January 14, 2025 Dr. Parker Marshall MD Other Provider Active St art: January 14, 2025 Dr. Indra Garces MD Other Provider Active Star t: January 14, 2025 Dr. Kasi Tarango DO Other Provider Active St art: January 14, 2025 Dr. Yasmin Villasenor MD Other Provider Active Start: January 14, 2025 Dr. Pacheco Bhatia MD Other Provider Active St art: January 14, 2025 Dr. Tyrell Mayo DO Other Provider Active Start: January 14, 2025 Dr. Dimas Gallegos MD Other Provider Active Star t: January 14, 2025 Dr. Lalo Leo MD Other Provider Active Sta rt: January 14, 2025 Dr. Antwan Pitts MD Attending Provider Active Start: January 14, 2025 Dr. Antwan Pitts MD Other Provider Active Star t: January 14, 2025 Dr. Katlin Dwyer MD Other Provider Active St art: January 14, 2025 Team Status: Active Member Role Status Dates Dr. Jacob Jennings DO Primary Care Provider Active Start: January 15, 2025 Dr. Indio Simon MD Emergency Provider Active Start: January 15, 2025 Dr. Chris Medina DO Admit Provider Active Start: January 15, 2025 Dr. Chris Medina DO Other Provider Active Start: January 15, 2025 Dr. Megha Erazo MD Other Provider Active Start: January 15, 2025 Dr. Rene Cutler MD Other Provider Active Start: January 15, 2025 Dr. Thaddeus Patel MD Other Provider Active Star t: January 15, 2025 Dr. Benito Malcolm DO Other Provider Active Start : January 15, 2025 Dr. Antwan Radford MD Other Provider Active Sta rt: January 15, 2025 Dr. Sebastian Howe MD Other Provider Active St art: January 15, 2025 Dr. Obi Hernandez MD Other Provider Active S tart: January 15, 2025 Dr. Laura Ribera MD Other Provider Active Start: January 15, 2025 Dr. Chapincito Ortiz MD Other Provider Active Start : January 15, 2025 Dr. Santino Martel MD Other Provider Active Start: January 15, 2025 Dr. Jamal Montes De Oca MD Other Provider Active Start : January 15, 2025 Dr. Ana Maria Flores MD Other Provider Active Star t: January 15, 2025 Dr. Korey Santamaria MD Other Provider Active Sta rt: January 15, 2025 Dr. Ciara Almaraz MD Other Provider Active Sta rt: January 15, 2025 Dr. Moses Andersen MD Other Provider Active Star t: January 15, 2025 Dr. Parker Marshall MD Other Provider Active St art: January 15, 2025 Dr. Indra Garces MD Other Provider Active Star t: January 15, 2025 Dr. Kasi Tarango DO Other Provider Active St art: January 15, 2025 Dr. Yasmin Villasenor MD Other Provider Active Start: January 15, 2025 Dr. Pacheco Bhatia MD Other Provider Active St art: January 15, 2025 Dr. Tyrell Mayo DO Other Provider Active Start: January 15, 2025 Dr. Dimas Gallegos MD Other Provider Active Star t: January 15, 2025 Dr. Lalo Leo MD Other Provider Active Sta rt: January 15, 2025 Dr. Antwan Pitts MD Attending Provider Active Start: January 15, 2025 Dr. Antwan Pitts MD Other Provider Active Star t: January 15, 2025 Dr. Katlin Dwyer MD Other Provider Active St art: January 15, 2025 Team Status: Active Member Role Status Dates Dr. Jacob Jennings DO Primary Care Provider Active Start: January 16, 2025 Dr. Indio Simon MD Emergency Provider Active Start: January 16, 2025 Dr. Chris Medina DO Admit Provider Active Start: January 16, 2025 Dr. Chris Medina DO Other Provider Active Start: January 16, 2025 Dr. Antwan Pitts MD Attending Provider Active Start: January 16, 2025 Dr. Antwan Pitts MD Other Provider Active Star t: January 16, 2025 Dr. Katlin Dwyer MD Other Provider Active St art: January 16, 2025 Team Status: Active Member Role Status Dates Dr. Jacob Jennings DO Primary Care Provider Active Start: January 17, 2025 Dr. Indio Simon MD Emergency Provider Active Start: January 17, 2025 Dr. Chris Medina DO Admit Provider Active Start: January 17, 2025 Dr. Chris Medina DO Attending Provider Active Start: January 17, 2025 Dr. Chris Medina DO Other Provider Active Start: January 17, 2025 Dr. Katlin Dwyer MD Other Provider Active St art: January 17, 2025 Dr. Antwan Pitts MD Other Provider Active Star t: January 17, 2025 Team Status: Active Member Role Status Dates Dr. Jacob Jennings DO Primary Care Provider Active Start: January 17, 2025 Dr. Indio Simon MD Emergency Provider Active Start: January 17, 2025 Dr. Chris Medina DO Admit Provider Active Start: January 17, 2025 Dr. Chris Medina DO Referring Provider Active Start: January 17, 2025 Dr. Chris Medina DO Other Provider Active Start: January 17, 2025 Dr. Katlin Dwyer MD Other Provider Active St art: January 17, 2025 Dr. Antwan Pitts MD Other Provider Active Star t: January 17, 2025 Dr. Michael Chambers DO Attending Provider Active Start: January 17, 2025 Team Status: Active Member Role Status Dates Dr. Jacob Jennings DO Primary Care Provider Active Start: January 18, 2025 Dr. Indio Simon MD Emergency Provider Active Start: January 18, 2025 Dr. Chris Medina DO Admit Provider Active Start: January 18, 2025 Dr. Chris Medina DO Other Provider Active Start: January 18, 2025 Dr. Katlin Dwyer MD Other Provider Active St art: January 18, 2025 Dr. Antwan Pitts MD Other Provider Active Star t: January 18, 2025 Dr. Evelio Hong MD Attending Provider Active Start: January 18, 2025 Dr. Evelio Hong MD Other Provider Active Start: January 18, 2025 Team Status: Inactive Member Role Status Dates Dr. Jacob Jennings DO Primary Care Provider Active Start: February 01, 2025 End: February 01, 2025 Dr. Jacob Jennings DO Referring Provider Active Start: February 01, 2025 End: February 01, 2025 Dr. Angela Rodriguez MD Attending Provider Active Start: February 01, 2025 End: February 01, 2025 Team Status: Inactive Member Role Status Dates Dr. Jacob Jennings DO Primary Care Provider Active Start: February 16, 2025 End: February 16, 2025 Dr. Jacob Jennings DO Referring Provider Active Start: February 16, 2025 End: February 16, 2025 Dr. Michael Chambers DO Attending Provider Active Start: February 16, 2025 End: February 16, 2025 Team Status: Inactive Member Role Status Dates Dr. Jacob Jennings DO Primary Care Provider Active Start: March 15, 2025 End: March 15, 2025 Dr. Jacob Jennings DO Referring Provider Active Start: March 15, 2025 End: March 15, 2025 Dr. Angela Rodriguez MD Attending Provider Active Start: March 15, 2025 End: March 15, 2025 Team Status: Active Member Role Status Dates Dr. Jacob Jennings DO Primary Care Provider Active Start: March 15, 2025 Dr. Angela Rodriguez MD Attending Provider Active Start: March 15, 2025 Dr. Angela Rodriguez MD Referring Provider Active Start: March 15, 2025 Team Status: Active Member Role Status Dates Dr. Jacob Jennings DO Primary Care Provider Active Start: March 21, 2025 Dr. Khalif Horan DO Emergency Provider Active Start: March 21, 2025 Dr. Sayra Fuentes MD Admit Provider Active St art: March 21, 2025 Dr. Sayra Fuentes MD Attending Provider Active Start: March 21, 2025 Team Status: Inactive Member Role Status Dates Dr. Jacob Jennings DO Primary Care Provider Active Start: March 21, 2025 End: March 24, 2025 Dr. Khalif Horan , Emergency Provider Active Start: March 21, 2025 End: March 24, 2025 Dr. Sayra Fuentes MD Admit Provider Active St art: March 21, 2025 End: March 24, 2025 Dr. Sayra Fuentes MD Other Provider Active St art: March 21, 2025 End: March 24, 2025 Dr. Evelio Hong MD Attending Provider Active Start: March 21, 2025 End: March 24, 2025 Dr. Emmanuel Kaiser MD Other Provider Active Sta rt: March 21, 2025 End: March 24, 2025 Team Status: Active Member Role Status Dates Dr. Jacob Jennings DO Primary Care Provider Active Start: March 21, 2025 Dr. Khalif Horan , DO Emergency Provider Active Start: March 21, 2025 Dr. Sayra Fuentes MD Admit Provider Active St art: March 21, 2025 Dr. Sayra Fuentes MD Other Provider Active St art: March 21, 2025 Dr. Emmanuel Kaiser MD Other Provider Active Sta rt: March 21, 2025 Dr. Michael Chambers , DO Attending Provider Active Start: March 21, 2025 Team Status: Active Member Role Status Dates Dr. Jacob Jennings DO Primary Care Provider Active Start: March 22, 2025 Dr. Khalif Horan , DO Emergency Provider Active Start: March 22, 2025 Dr. Sayra Fuentes MD Admit Provider Active St art: March 22, 2025 Dr. Sayra Fuentes MD Other Provider Active St art: March 22, 2025 Dr. Emmanuel Kaiser MD Attending Provider Active Start: March 22, 2025 Dr. Emmanuel Kaiser MD Other Provider Active Sta rt: March 22, 2025 Team Status: Active Member Role Status Dates Dr. Jacob Jennings DO Primary Care Provider Active Start: March 22, 2025 Dr. Khalif Horan , DO Emergency Provider Active Start: March 22, 2025 Dr. Sayra Fuentes MD Admit Provider Active St art: March 22, 2025 Dr. Sayra Fuentes MD Other Provider Active St art: March 22, 2025 Dr. Emmanuel Kaiser MD Other Provider Active Sta rt: March 22, 2025 Dr. Michael Chambers , DO Attending Provider Active Start: March 22, 2025 Team Status: Active Member Role Status Dates Dr. Jacob Jennings DO Primary Care Provider Active Start: March 23, 2025 Dr. Khalif Horan , DO Emergency Provider Active Start: March 23, 2025 Dr. Sayra Fuentes MD Admit Provider Active St art: March 23, 2025 Dr. Sayra Fuentes MD Other Provider Active St art: March 23, 2025 Dr. Emmanuel Kaiser MD Attending Provider Active Start: March 23, 2025 Dr. Emmanuel Kaiser MD Other Provider Active Sta rt: March 23, 2025 Team Status: Active Member Role Status Dates Dr. Jacob Jennings DO Primary Care Provider Active Start: March 23, 2025 Dr. Khalif Horan , DO Emergency Provider Active Start: March 23, 2025 Dr. Sayra Fuentes MD Admit Provider Active St art: March 23, 2025 Dr. Sayra Fuentes MD Other Provider Active St art: March 23, 2025 Dr. Emmanuel Kaiser MD Other Provider Active Sta rt: March 23, 2025 Dr. Michael Chambers , Attending Provider Active Start: March 23, 2025 Cold Rolling Supervisor Relationship Specialty Start Date End Date Jacob Jennings DO [address] [place] [id number] PCP - General 05/28/15 Team Status: Active Member Role Status Dates Dr. aJcob Jennings DO Primary Care Provider Active Start: March 24, 2025 Dr. Khalif Horan DO Emergency Provider Active Start: March 24, 2025 Dr. Sayra Fuentes MD Admit Provider Active St art: March 24, 2025 Dr. Sayra Fuentes MD Other Provider Active St art: March 24, 2025 Dr. Evelio Hong MD Attending Provider Active Start: March 24, 2025 Dr. Evelio Hong MD Other Provider Active Start: March 24, 2025 Dr. Emmanuel Kaiser MD Other Provider Active Sta rt: March 24, 2025 Team Status: Active Member Role Status Dates Dr. Jacob Jennings DO Primary Care Provider Active Start: March 24, 2025 Dr. Khalif Horan , DO Emergency Provider Active Start: March 24, 2025 Dr. Sayra Fuentes MD Admit Provider Active St art: March 24, 2025 Dr. Sayra Fuentes MD Other Provider Active St art: March 24, 2025 Dr. Evelio Hong MD Other Provider Active Start: March 24, 2025 Dr. Emmanuel Kaiser MD Other Provider Active Sta rt: March 24, 2025 Dr. Michael Chambers DO Attending Provider Active Start: March 24, 2025 Team Status: Inactive Member Role Status Dates Dr. Jacob Jennings DO Primary Care Provider Active Start: March 29, 2025 End: March 29, 2025 Dr. Jacob Jennings DO Referring Provider Active Start: March 29, 2025 End: March 29, 2025 Verónica Meadows CHARGE OUT CLERK, CHARGE OUT CLERK-C Attending Provider Active Start: March 29, 2025 End: March 29, 2025 Team Status: Active Member Role Status Dates Dr. Jacob Jennings DO Primary Care Provider Active Start: March 29, 2025 Dr. Angela Rodriguez MD Attending Provider Active Start: March 29, 2025 Dr. Angela Rodriguez MD Referring Provider Active Start: March 29, 2025 Team Status: Active Member Role Status Dates Dr. Jacob Jennings DO Primary Care Provider Active Start: March 21, 2025 Dr. Khalif Horan DO Emergency Provider Active Start: March 21, 2025 Dr. Sayra Fuentes MD Admit Provider Active St art: March 21, 2025 Dr. Sayra Fuentes MD Referring Provider Active Start: March 21, 2025 Dr. Sayra Fuentes MD Other Provider Active St art: March 21, 2025 Dr. Emmanuel Kaiser MD Other Provider Active Sta rt: March 21, 2025 Dr. Michael Chambers DO Attending Provider Active Start: March 21, 2025 Team Status: Active Member Role Status Dates Dr. Jacob Jennings DO Primary Care Provider Active Start: March 22, 2025 Dr. Khalif Horan , Emergency Provider Active Start: March 22, 2025 Dr. Sayra Fuentes MD Admit Provider Active St art: March 22, 2025 Dr. Sayra Fuentes MD Referring Provider Active Start: March 22, 2025 Dr. Sayra Fuentes MD Other Provider Active St art: March 22, 2025 Dr. Emmanuel Kaiser MD Other Provider Active Sta rt: March 22, 2025 Dr. Michael Chambers DO Attending Provider Active Start: March 22, 2025 Team Status: Active Member Role Status Dates Dr. Jacob Jennings DO Primary Care Provider Active Start: March 23, 2025 Dr. Khalif Horan , DO Emergency Provider Active Start: March 23, 2025 Dr. Sayra Fuentes MD Admit Provider Active St art: March 23, 2025 Dr. Sayra Fuentes MD Referring Provider Active Start: March 23, 2025 Dr. Sayra Fuentes MD Other Provider Active St art: March 23, 2025 Dr. Emmanuel Kaiser MD Other Provider Active Sta rt: March 23, 2025 Dr. Michael Chambers DO Attending Provider Active Start: March 23, 2025 Team Status: Active Member Role Status Dates Dr. Jacob Jennings DO Primary Care Provider Active Start: March 24, 2025 Dr. Khalif Horan , DO Emergency Provider Active Start: March 24, 2025 Dr. Sayra Fuentes MD Admit Provider Active St art: March 24, 2025 Dr. Sayra Fuentes MD Referring Provider Active Start: March 24, 2025 Dr. Sayra Fuentes MD Other Provider Active St art: March 24, 2025 Dr. Evelio Hong MD Other Provider Active Start: March 24, 2025 Dr. Emmanuel Kaiser MD Other Provider Active Sta rt: March 24, 2025 Dr. Michael Chambers DO Attending Provider Active Start: March 24, 2025 Team Status: Inactive Member Role Status Dates Dr. Jacob Jennings DO Primary Care Provider Active Start: March 30, 2025 End: March 30, 2025 Dr. Jacob Jennings DO Referring Provider Active Start: March 30, 2025 End: March 30, 2025 Dr. Michael Chambers DO Attending Provider Active Start: March 30, 2025 End: March 30, 2025 Team Status: Inactive Member Role Status Dates Dr. Jacob Jennings DO Primary Care Provider Active Start: April 12, 2025 End: April 12, 2025 Dr. Jacob Jennings DO Referring Provider Active Start: April 12, 2025 End: April 12, 2025 Dr. Angela Rodriguez MD Attending Provider Active Start: April 12, 2025 End: April 12, 2025 Team Status: Active Member Role Status Dates Dr. Jacob Jennings DO Primary Care Provider Active Start: April 12, 2025 Dr. Angela Rodriguez MD Attending Provider Active Start: April 12, 2025 Dr. Angela Rodriguez MD Referring Provider Active Start: April 12, 2025 Cold Rolling Supervisor Relationship Specialty Start Date End Date Jacob Jennings DO [address] [place] [address] [address] [place] [id number] PCP - General 05/28/15 Team Status: Inactive Member Role Status Dates Dr. Jacob Jennings DO Primary Care Provider Active Start: May 02, 2025 End: May 02, 2025 Dr. Jacob Jennings DO Referring Provider Active Start: May 02, 2025 End: May 02, 2025 Verónica Meadows CHARGE OUT CLERK, CHARGE OUT CLERK-C Attending Provider Active Start: May 02, 2025 End: May 02, 2025 Team Status: Active Member Role Status Dates Dr. Jacob Jennings DO Primary Care Provider Active Start: May 02, 2025 Dr. Angela Rodriguez MD Attending Provider Active Start: May 02, 2025 Dr. Angela Rodriguez MD Referring Provider Active Start: May 02, 2025 Cold Rolling Supervisor Relationship Specialty Start Date End Date Jacob Jennings DO [address] [place] [address] PCP - General Family Medicine 12/20/18 Cold Rolling Supervisor Relationship Specialty Start Date End Date Jacob Jennings DO [address] [place], [place] [id number] PCP - General Family Medicine 12/20/18 Cold Rolling Supervisor Relationship Specialty Start Date End Date Jacob Jennings DO [address] [place], [place] [id number] PCP - General Family Medicine 12/20/18 Team Status: Active Member Role/Relationship Status Dates Dr. Jacob Jennings DO Primary Care Provider Active Team Status: Inactive Member Role/Relationship Status Dates Dr. Jacob Jennings DO Primary Care Provider Active Start: February 01, 2025 End: February 01, 2025 Dr. Jacob Jennings DO Referring Provider Active Start: February 01, 2025 End: February 01, 2025 Dr. Angela Rodriguez MD Attending Provider Active Start: February 01, 2025 End: February 01, 2025 Team Status: Inactive Member Role/Relationship Status Dates Dr. Jacob Jennings DO Primary Care Provider Active Start: February 16, 2025 End: February 16, 2025 Dr. Jacob Jennings DO Referring Provider Active Start: February 16, 2025 End: February 16, 2025 Dr. Michael Chambers DO Attending Provider Active Start: February 16, 2025 End: February 16, 2025 Team Status: Inactive Member Role/Relationship Status Dates Dr. Jacob Jennings DO Primary Care Provider Active Start: March 15, 2025 End: March 15, 2025 Dr. Jacob Jennings DO Referring Provider Active Start: March 15, 2025 End: March 15, 2025 Dr. Angela Rodriguez MD Attending Provider Active Start: March 15, 2025 End: March 15, 2025 Team Status: Inactive Member Role/Relationship Status Dates Dr. Jacob Jennings DO Primary Care Provider Active Start: March 21, 2025 End: March 24, 2025 Dr. Khalif Horan , Emergency Provider Active Start: March 21, 2025 End: March 24, 2025 Dr. Sayra Fuentes MD Admit Provider Active St art: March 21, 2025 End: March 24, 2025 Dr. Sayra Fuentes MD Other Provider Active St art: March 21, 2025 End: March 24, 2025 Dr. Evelio Hong MD Attending Provider Active Start: March 21, 2025 End: March 24, 2025 Dr. Emmanuel Kaiser MD Other Provider Active Sta rt: March 21, 2025 End: March 24, 2025 Team Status: Active Member Role/Relationship Status Dates Dr. Jacob Jennings , DO Primary Care Provider Active Start: March 21, 2025 Dr. Khalif Horan , DO Emergency Provider Active Start: March 21, 2025 Dr. Sayra Fuentes MD Admit Provider Active St art: March 21, 2025 Dr. Sayra Fuentes MD Referring Provider Active Start: March 21, 2025 Dr. Sayra Fuentes MD Other Provider Active St art: March 21, 2025 Dr. Emmanuel Kaiser MD Other Provider Active Sta rt: March 21, 2025 Dr. Michael Chambers , Attending Provider Active Start: March 21, 2025 Team Status: Active Member Role/Relationship Status Dates Dr. Jacob Jennings , DO Primary Care Provider Active Start: March 22, 2025 Dr. Khalif Horan , DO Emergency Provider Active Start: March 22, 2025 Dr. Sayra Fuentes MD Admit Provider Active St art: March 22, 2025 Dr. Sayra Fuentes MD Other Provider Active St art: March 22, 2025 Dr. Emmanuel Kaiser MD Attending Provider Active Start: March 22, 2025 Dr. Emmanuel Kaiser MD Other Provider Active Sta rt: March 22, 2025 Team Status: Active Member Role/Relationship Status Dates Dr. Jacob Jennings DO Primary Care Provider Active Start: March 22, 2025 Dr. Khalif Horan , DO Emergency Provider Active Start: March 22, 2025 Dr. Sayra Fuentes MD Admit Provider Active St art: March 22, 2025 Dr. Sayra Fuentes MD Referring Provider Active Start: March 22, 2025 Dr. Sayra Fuentes MD Other Provider Active St art: March 22, 2025 Dr. Emmanuel Kaiser MD Other Provider Active Sta rt: March 22, 2025 Dr. Michael Chambers DO Attending Provider Active Start: March 22, 2025 Team Status: Active Member Role/Relationship Status Dates Dr. Jacob Jennings DO Primary Care Provider Active Start: March 23, 2025 Dr. Khalif Horan , DO Emergency Provider Active Start: March 23, 2025 Dr. Sayra Fuentes MD Admit Provider Active St art: March 23, 2025 Dr. Sayra Fuentes MD Other Provider Active St art: March 23, 2025 Dr. Emmanuel Kaiser MD Attending Provider Active Start: March 23, 2025 Dr. Emmanuel Kaiser MD Other Provider Active Sta rt: March 23, 2025 Team Status: Active Member Role/Relationship Status Dates Dr. Jacob Jennings DO Primary Care Provider Active Start: March 23, 2025 Dr. Khalif Horan DO Emergency Provider Active Start: March 23, 2025 Dr. Sayra Fuentes MD Admit Provider Active St art: March 23, 2025 Dr. Sayra Fuentes MD Referring Provider Active Start: March 23, 2025 Dr. Sayra Fuentes MD Other Provider Active St art: March 23, 2025 Dr. Emmanuel Kaiser MD Other Provider Active Sta rt: March 23, 2025 Dr. Michael Chambers DO Attending Provider Active Start: March 23, 2025 Team Status: Active Member Role/Relationship Status Dates Dr. Jacob Jennings DO Primary Care Provider Active Start: March 24, 2025 Dr. Khalif Horan , DO Emergency Provider Active Start: March 24, 2025 Dr. Sayra Fuentes MD Admit Provider Active St art: March 24, 2025 Dr. Sayra Fuentes MD Other Provider Active St art: March 24, 2025 Dr. Evelio Hong MD Attending Provider Active Start: March 24, 2025 Dr. Evelio Hong MD Other Provider Active Start: March 24, 2025 Dr. Emmanuel Kaiser MD Other Provider Active Sta rt: March 24, 2025 Team Status: Active Member Role/Relationship Status Dates Dr. Jacob Jennings DO Primary Care Provider Active Start: March 24, 2025 Dr. Khalif Horan DO Emergency Provider Active Start: March 24, 2025 Dr. Sayra Fuentes MD Admit Provider Active St art: March 24, 2025 Dr. Sayra Fuentes MD Referring Provider Active Start: March 24, 2025 Dr. Sayra Fuentes MD Other Provider Active St art: March 24, 2025 Dr. Evelio Hong MD Other Provider Active Start: March 24, 2025 Dr. Emmanuel Kaiser MD Other Provider Active Sta rt: March 24, 2025 Dr. Michael Chambers DO Attending Provider Active Start: March 24, 2025 Team Status: Inactive Member Role/Relationship Status Dates Dr. Jacob Jennings DO Primary Care Provider Active Start: March 29, 2025 End: March 29, 2025 Dr. Jacob Jennings DO Referring Provider Active Start: March 29, 2025 End: March 29, 2025 Verónica Meadows CHARGE OUT CLERK, CHARGE OUT CLERK-C Attending Provider Active Start: March 29, 2025 End: March 29, 2025 Team Status: Inactive Member Role/Relationship Status Dates Dr. Jacob Jennings DO Primary Care Provider Active Start: March 30, 2025 End: March 30, 2025 Dr. Jacob Jennings DO Referring Provider Active Start: March 30, 2025 End: March 30, 2025 Dr. Michael Chambers DO Attending Provider Active Start: March 30, 2025 End: March 30, 2025 Team Status: Inactive Member Role/Relationship Status Dates Dr. Jacob Jennings DO Primary Care Provider Active Start: April 12, 2025 End: April 12, 2025 Dr. Jacob Jennings DO Referring Provider Active Start: April 12, 2025 End: April 12, 2025 Dr. Angela Rodriguez MD Attending Provider Active Start: April 12, 2025 End: April 12, 2025 Team Status: Inactive Member Role/Relationship Status Dates Dr. Jacob Jennings DO Primary Care Provider Active Start: May 02, 2025 End: May 02, 2025 Dr. Jacob Jennings DO Referring Provider Active Start: May 02, 2025 End: May 02, 2025 Verónica Meadows CHARGE OUT CLERK, CHARGE OUT CLERK-C Attending Provider Active Start: May 02, 2025 End: May 02, 2025 Team Status: Inactive Member Role/Relationship Status Dates Dr. Jacob Jennings DO Primary Care Provider Active Start: May 24, 2025 End: May 24, 2025 Dr. Jacob Jennings DO Referring Provider Active Start: May 24, 2025 End: May 24, 2025 Dr. Angela Rodriguez MD Attending Provider Active Start: May 24, 2025 End: May 24, 2025 Team Status: Active Member Role/Relationship Status Dates Dr. Jacob Jennings DO Primary Care Provider Active Start: May 24, 2025 Dr. Angela Rodriguez MD Attending Provider Active Start: May 24, 2025 Dr. Angela Rodriguez MD Referring Provider Active Start: May 24, 2025 Team Status: Inactive Member Role/Relationship Status Dates Dr. Jacob Jennings DO Primary Care Provider Active Start: February 16, 2025 End: February 16, 2025 Dr. Jacob Jennings DO Referring Provider Active Start: February 16, 2025 End: February 16, 2025 Dr. Michael Chambers DO Attending Provider Active Start: February 16, 2025 End: February 16, 2025 Team Status: Inactive Member Role/Relationship Status Dates Dr. Jacob Jennings DO Primary Care Provider Active Start: March 15, 2025 End: March 15, 2025 Dr. Jacob Jennings DO Referring Provider Active Start: March 15, 2025 End: March 15, 2025 Dr. Angela Rodriguez MD Attending Provider Active Start: March 15, 2025 End: March 15, 2025 Team Status: Inactive Member Role/Relationship Status Dates Dr. Jacob Jennings DO Primary Care Provider Active Start: March 21, 2025 End: March 24, 2025 Dr. Khalif Horan DO Emergency Provider Active Start: March 21, 2025 End: March 24, 2025 Dr. Sayra Fuentes MD Admit Provider Active St art: March 21, 2025 End: March 24, 2025 Dr. Sayra Fuentes MD Other Provider Active St art: March 21, 2025 End: March 24, 2025 Dr. Evelio Hong MD Attending Provider Active Start: March 21, 2025 End: March 24, 2025 Dr. Emmanuel Kaiser MD Other Provider Active Sta rt: March 21, 2025 End: March 24, 2025 Team Status: Active Member Role/Relationship Status Dates Dr. Jacob Jennings DO Primary Care Provider Active Start: March 21, 2025 Dr. Khalif Horan DO Emergency Provider Active Start: March 21, 2025 Dr. Sayra Fuentes MD Admit Provider Active St art: March 21, 2025 Dr. Sayra Fuentes MD Referring Provider Active Start: March 21, 2025 Dr. Sayra Fuentes MD Other Provider Active St art: March 21, 2025 Dr. Emmanuel Kaiser MD Other Provider Active Sta rt: March 21, 2025 Dr. Michael Chambers DO Attending Provider Active Start: March 21, 2025 Team Status: Active Member Role/Relationship Status Dates Dr. Jacob Jennings DO Primary Care Provider Active Start: March 22, 2025 Dr. Khalif Horan DO Emergency Provider Active Start: March 22, 2025 Dr. Sayra Fuentes MD Admit Provider Active St art: March 22, 2025 Dr. Sayra Fuentes MD Other Provider Active St art: March 22, 2025 Dr. Emmanuel Kaiser MD Attending Provider Active Start: March 22, 2025 Dr. Emmanuel Kaiser MD Other Provider Active Sta rt: March 22, 2025 Team Status: Active Member Role/Relationship Status Dates Dr. Jacob Jennings DO Primary Care Provider Active Start: March 22, 2025 Dr. Khalif Horan DO Emergency Provider Active Start: March 22, 2025 Dr. Sayra Fuentes MD Admit Provider Active St art: March 22, 2025 Dr. Sayra Fuentes MD Referring Provider Active Start: March 22, 2025 Dr. Sayra Fuentes MD Other Provider Active St art: March 22, 2025 Dr. Emmanuel Kaiser MD Other Provider Active Sta rt: March 22, 2025 Dr. Michael Chambers DO Attending Provider Active Start: March 22, 2025 Team Status: Active Member Role/Relationship Status Dates Dr. Jacob Jennings DO Primary Care Provider Active Start: March 23, 2025 Dr. Khalif Horan , Emergency Provider Active Start: March 23, 2025 Dr. Sayra Fuentes MD Admit Provider Active St art: March 23, 2025 Dr. Sayra Fuentes MD Other Provider Active St art: March 23, 2025 Dr. Emmanuel Kaiser MD Attending Provider Active Start: March 23, 2025 Dr. Emmanuel Kaiser MD Other Provider Active Sta rt: March 23, 2025 Team Status: Active Member Role/Relationship Status Dates Dr. Jacob Jennings DO Primary Care Provider Active Start: March 23, 2025 Dr. Khalif Horan , DO Emergency Provider Active Start: March 23, 2025 Dr. Sayra Fuentes MD Admit Provider Active St art: March 23, 2025 Dr. Sayra Fuentes MD Referring Provider Active Start: March 23, 2025 Dr. Sayra Fuentes MD Other Provider Active St art: March 23, 2025 Dr. Emmanuel Kaiser MD Other Provider Active Sta rt: March 23, 2025 Dr. Michael Chambers DO Attending Provider Active Start: March 23, 2025 Team Status: Active Member Role/Relationship Status Dates Dr. Jacob Jennings DO Primary Care Provider Active Start: March 24, 2025 Dr. Khalif Horan , Emergency Provider Active Start: March 24, 2025 Dr. Sayra Fuentes MD Admit Provider Active St art: March 24, 2025 Dr. Sayra Fuentes MD Other Provider Active St art: March 24, 2025 Dr. Evelio Hong MD Attending Provider Active Start: March 24, 2025 Dr. Evelio Hong MD Other Provider Active Start: March 24, 2025 Dr. Emmanuel Kaiser MD Other Provider Active Sta rt: March 24, 2025 Team Status: Active Member Role/Relationship Status Dates Dr. Jacob Jennings DO Primary Care Provider Active Start: March 24, 2025 Dr. Khalif Horan DO Emergency Provider Active Start: March 24, 2025 Dr. Sayra Fuentes MD Admit Provider Active St art: March 24, 2025 Dr. Sayra Fuentes MD Referring Provider Active Start: March 24, 2025 Dr. Sayra Fuentes MD Other Provider Active St art: March 24, 2025 Dr. Evelio Hong MD Other Provider Active Start: March 24, 2025 Dr. Emmanuel Kaiser MD Other Provider Active Sta rt: March 24, 2025 Dr. Michael Chambers DO Attending Provider Active Start: March 24, 2025 Team Status: Inactive Member Role/Relationship Status Dates Dr. Jacob Jennings DO Primary Care Provider Active Start: March 29, 2025 End: March 29, 2025 Dr. Jacob Jennings DO Referring Provider Active Start: March 29, 2025 End: March 29, 2025 Verónica Meadows CHARGE OUT CLERK, CHARGE OUT CLERK-C Attending Provider Active Start: March 29, 2025 End: March 29, 2025 Team Status: Inactive Member Role/Relationship Status Dates Dr. Jacob Jennings DO Primary Care Provider Active Start: March 30, 2025 End: March 30, 2025 Dr. Jacob Jennings DO Referring Provider Active Start: March 30, 2025 End: March 30, 2025 Dr. Michael Chambers DO Attending Provider Active Start: March 30, 2025 End: March 30, 2025 Team Status: Inactive Member Role/Relationship Status Dates Dr. Jacob Jennings DO Primary Care Provider Active Start: April 12, 2025 End: April 12, 2025 Dr. Jacob Jennings DO Referring Provider Active Start: April 12, 2025 End: April 12, 2025 Dr. Angela Rodriguez MD Attending Provider Active Start: April 12, 2025 End: April 12, 2025 Team Status: Inactive Member Role/Relationship Status Dates Dr. Jacob Jennings DO Primary Care Provider Active Start: May 02, 2025 End: May 02, 2025 Dr. Jacob Jennings DO Referring Provider Active Start: May 02, 2025 End: May 02, 2025 Verónica Meadows NP, CHARGE OUT CLERK-C Attending Provider Active Start: May 02, 2025 End: May 02, 2025 Team Status: Inactive Member Role/Relationship Status Dates Dr. Jacob Jennings DO Primary Care Provider Active Start: May 24, 2025 End: May 24, 2025 Dr. Jacob Jennings DO Referring Provider Active Start: May 24, 2025 End: May 24, 2025 Dr. Angela Rodriguez MD Attending Provider Active Start: May 24, 2025 End: May 24, 2025 Team Status: Active Member Role/Relationship Status Dates Dr. Jacob Jennings DO Primary Care Provider Active Start: May 24, 2025 Dr. Angela Rodriguez MD Attending Provider Active Start: May 24, 2025 Dr. Angela Rodriguez MD Referring Provider Active Start: May 24, 2025 Team Status: Inactive Member Role/Relationship Status Dates Dr. Jacob Jennings DO Primary Care Provider Active Start: June 09, 2025 End: June 09, 2025 Dr. Jacob Jennings DO Referring Provider Active Start: June 09, 2025 End: June 09, 2025 Monalisa Dunne CHARGE OUT CLERK, CHARGE OUT CLERK-C Attending Provider Active Start: June 09, 2025 End: June 09, 2025 Team Status: Inactive Member Role/Relationship Status Dates Dr. Jacob Jennings DO Primary Care Provider Active Start: June 09, 2025 End: June 09, 2025 Dr. Jacob Jennings DO Referring Provider Active Start: June 09, 2025 End: June 09, 2025 Monalisa Dunne CHARGE OUT CLERK, CHARGE OUT CLERK-C Attending Provider Active Start: June 09, 2025 End: June 09, 2025 Team Status: Inactive Member Role/Relationship Status Dates Dr. Jacob Jennings DO Primary Care Provider Active Start: June 15, 2025 End: June 15, 2025 Dr. Jacob Jennings DO Referring Provider Active Start: June 15, 2025 End: June 15, 2025 Verónica Meadows CHARGE OUT CLERK, CHARGE OUT CLERK-C Attending Provider Active Start: June 15, 2025 End: June 15, 2025 Team Status: Active Member Role/Relationship Status Dates Dr. Jacob Jennings DO Primary Care Provider Active Start: June 15, 2025 Dr. Angela Rodriguez MD Attending Provider Active Start: June 15, 2025 Dr. Angela Rodriguez MD Referring Provider Active Start: June 15, 2025 Team Status: Inactive Member Role/Relationship Status Dates Dr. Jacob Jennings DO Primary Care Provider Active Start: March 15, 2025 End: March 15, 2025 Dr. Jacob Jennings DO Referring Provider Active Start: March 15, 2025 End: March 15, 2025 Dr. Angela Rodriguez MD Attending Provider Active Start: March 15, 2025 End: March 15, 2025 Team Status: Inactive Member Role/Relationship Status Dates Dr. Jacob Jennings DO Primary Care Provider Active Start: March 21, 2025 End: March 24, 2025 Dr. Khalif Horan DO Emergency Provider Active Start: March 21, 2025 End: March 24, 2025 Dr. Sayra Fuentse MD Admit Provider Active St art: March 21, 2025 End: March 24, 2025 Dr. Sayra Fuentes MD Other Provider Active St art: March 21, 2025 End: March 24, 2025 Dr. Evelio Hong MD Attending Provider Active Start: March 21, 2025 End: March 24, 2025 Dr. Emmanuel Kaiser MD Other Provider Active Sta rt: March 21, 2025 End: March 24, 2025 Team Status: Active Member Role/Relationship Status Dates Dr. Jacob Jennings , Primary Care Provider Active Start: March 21, 2025 Dr. Khalif Horan , DO Emergency Provider Active Start: March 21, 2025 Dr. Sayra Fuentes MD Admit Provider Active St art: March 21, 2025 Dr. Sayra Fuentes MD Referring Provider Active Start: March 21, 2025 Dr. Sayra Fuentes MD Other Provider Active St art: March 21, 2025 Dr. Emmanuel Kaiser MD Other Provider Active Sta rt: March 21, 2025 Dr. Michael Chambers , Attending Provider Active Start: March 21, 2025 Team Status: Active Member Role/Relationship Status Dates Dr. Jacob Jennings DO Primary Care Provider Active Start: March 22, 2025 Dr. Khalif Horan , DO Emergency Provider Active Start: March 22, 2025 Dr. Sayra Fuentes MD Admit Provider Active St art: March 22, 2025 Dr. Sayra Fuentes MD Other Provider Active St art: March 22, 2025 Dr. Emmanuel Kaiser MD Attending Provider Active Start: March 22, 2025 Dr. Emmanuel Kaiser MD Other Provider Active Sta rt: March 22, 2025 Team Status: Active Member Role/Relationship Status Dates Dr. Jacob Jennings DO Primary Care Provider Active Start: March 22, 2025 Dr. Khalif Horan , Emergency Provider Active Start: March 22, 2025 Dr. Sayra Fuentes MD Admit Provider Active St art: March 22, 2025 Dr. Sayra Fuentes MD Referring Provider Active Start: March 22, 2025 Dr. Sayra Fuentes MD Other Provider Active St art: March 22, 2025 Dr. Emmanuel Kaiser MD Other Provider Active Sta rt: March 22, 2025 Dr. Michael Chambers DO Attending Provider Active Start: March 22, 2025 Team Status: Active Member Role/Relationship Status Dates Dr. Jacob Jennings DO Primary Care Provider Active Start: March 23, 2025 Dr. Khalif Horan , DO Emergency Provider Active Start: March 23, 2025 Dr. Sayra Fuentes MD Admit Provider Active St art: March 23, 2025 Dr. Sayra Fuentes MD Other Provider Active St art: March 23, 2025 Dr. Emmanuel Kaiser MD Attending Provider Active Start: March 23, 2025 Dr. Emmanuel Kaiser MD Other Provider Active Sta rt: March 23, 2025 Team Status: Active Member Role/Relationship Status Dates Dr. Jacob Jennings DO Primary Care Provider Active Start: March 23, 2025 Dr. Khalif Horan , Emergency Provider Active Start: March 23, 2025 Dr. Sayra Fuentes MD Admit Provider Active St art: March 23, 2025 Dr. Sayra Fuentes MD Referring Provider Active Start: March 23, 2025 Dr. Sayra Fuentes MD Other Provider Active St art: March 23, 2025 Dr. Emmanuel Kaiser MD Other Provider Active Sta rt: March 23, 2025 Dr. Michael Chambers DO Attending Provider Active Start: March 23, 2025 Team Status: Active Member Role/Relationship Status Dates Dr. Jacob Jennings DO Primary Care Provider Active Start: March 24, 2025 Dr. Khalif Horan DO Emergency Provider Active Start: March 24, 2025 Dr. Sayra Fuentes MD Admit Provider Active St art: March 24, 2025 Dr. Sayra Fuentes MD Other Provider Active St art: March 24, 2025 Dr. Evelio Hong MD Attending Provider Active Start: March 24, 2025 Dr. Evelio Hong MD Other Provider Active Start: March 24, 2025 Dr. Emmanuel Kaiser MD Other Provider Active Sta rt: March 24, 2025 Team Status: Active Member Role/Relationship Status Dates Dr. Jacob Jennings DO Primary Care Provider Active Start: March 24, 2025 Dr. Khalif Horan DO Emergency Provider Active Start: March 24, 2025 Dr. Sayra Fuentes MD Admit Provider Active St art: March 24, 2025 Dr. Sayra Fuentes MD Referring Provider Active Start: March 24, 2025 Dr. Sayra Fuentes MD Other Provider Active St art: March 24, 2025 Dr. Evelio Hong MD Other Provider Active Start: March 24, 2025 Dr. Emmanuel Kaiser MD Other Provider Active Sta rt: March 24, 2025 Dr. Michael Chambers DO Attending Provider Active Start: March 24, 2025 Team Status: Inactive Member Role/Relationship Status Dates Dr. Jacob Jennings DO Primary Care Provider Active Start: March 29, 2025 End: March 29, 2025 Dr. Jacob Jennings DO Referring Provider Active Start: March 29, 2025 End: March 29, 2025 Verónica Meadows CHARGE OUT CLERK, CHARGE OUT CLERK-C Attending Provider Active Start: March 29, 2025 End: March 29, 2025 Team Status: Inactive Member Role/Relationship Status Dates Dr. Jacob Jennings DO Primary Care Provider Active Start: March 30, 2025 End: March 30, 2025 Dr. Jacob Jennings DO Referring Provider Active Start: March 30, 2025 End: March 30, 2025 Dr. Michael Chambers DO Attending Provider Active Start: March 30, 2025 End: March 30, 2025 Team Status: Inactive Member Role/Relationship Status Dates Dr. Jacob Jennings DO Primary Care Provider Active Start: April 12, 2025 End: April 12, 2025 Dr. Jacob Jennings DO Referring Provider Active Start: April 12, 2025 End: April 12, 2025 Dr. Angela Rodriguez MD Attending Provider Active Start: April 12, 2025 End: April 12, 2025 Team Status: Inactive Member Role/Relationship Status Dates Dr. Jacob Jennings DO Primary Care Provider Active Start: May 02, 2025 End: May 02, 2025 Dr. Jacob Jennings DO Referring Provider Active Start: May 02, 2025 End: May 02, 2025 Verónica Meadows NP, CHARGE OUT CLERK-C Attending Provider Active Start: May 02, 2025 End: May 02, 2025 Team Status: Inactive Member Role/Relationship Status Dates Dr. Jacob Jennings DO Primary Care Provider Active Start: May 24, 2025 End: May 24, 2025 Dr. Jaocb Jennings DO Referring Provider Active Start: May 24, 2025 End: May 24, 2025 Dr. Angela Rodriguez MD Attending Provider Active Start: May 24, 2025 End: May 24, 2025 Team Status: Inactive Member Role/Relationship Status Dates Dr. Jacob Jennings DO Primary Care Provider Active Start: June 09, 2025 End: June 09, 2025 Dr. Jacob Jennings DO Referring Provider Active Start: June 09, 2025 End: June 09, 2025 Monalisa Dunne CHARGE OUT CLERK, CHARGE OUT CLERK-C Attending Provider Active Start: June 09, 2025 End: June 09, 2025 Team Status: Inactive Member Role/Relationship Status Dates Dr. Jacob Jennings DO Primary Care Provider Active Start: June 15, 2025 End: June 15, 2025 Dr. Jacob Jennings DO Referring Provider Active Start: June 15, 2025 End: June 15, 2025 Verónica Meadows CHARGE OUT CLERK, CHARGE OUT CLERK-C Attending Provider Active Start: June 15, 2025 End: June 15, 2025 Team Status: Active Member Role/Relationship Status Dates Dr. Jacob Jennings DO Primary Care Provider Active Start: June 28, 2025 Dr. Angela Rodriguez MD Attending Provider Active Start: June 28, 2025 Dr. Angela Rodriguez MD Referring Provider Active Start: June 28, 2025 Team Status: Active Member Role/Relationship Status Dates Dr. Jacob Jennings DO Primary Care Provider Active Start: June 28, 2025 Dr. Angela Rodriguez MD Attending Provider Active Start: June 28, 2025 Dr. Angela Rodriguez MD Referring Provider Active Start: June 28, 2025 Team Status: Inactive Member Role/Relationship Status Dates Dr. Jacob Jennings DO Primary Care Provider Active Start: July 04, 2025 End: July 04, 2025 Dr. Jacob Jennings DO Referring Provider Active Start: July 04, 2025 End: July 04, 2025 Dr. Michael Chambers DO Attending Provider Active Start: July 04, 2025 End: July 04, 2025 Team Status: Inactive Member Role/Relationship Status Dates Dr. Jacob Jennings DO Primary Care Provider Active Start: July 04, 2025 End: July 04, 2025 Dr. Jacob Jennings DO Referring Provider Active Start: July 04, 2025 End: July 04, 2025 Dr. Michael Chambers DO Attending Provider Active Start: July 04, 2025 End: July 04, 2025 Team Status: Inactive Member Role/Relationship Status Dates Dr. Jacob Jennings DO Primary Care Provider Active Start: July 05, 2025 End: July 05, 2025 Dr. Jacob Jennings DO Referring Provider Active Start: July 05, 2025 End: July 05, 2025 Dr. Angela Rodriguez MD Attending Provider Active Start: July 05, 2025 End: July 05, 2025 Team Status: Active Member Role/Relationship Status Dates Dr. Jacob Jennings DO Primary Care Provider Active Start: July 05, 2025 Dr. Angela Rodriguez MD Attending Provider Active Start: July 05, 2025 Dr. Angela Rodriguez MD Referring Provider Active Start: July 05, 2025 Team Status: Inactive Member Role/Relationship Status Dates Dr. Jacob Jennings DO Primary Care Provider Active Start: June 28, 2025 End: June 28, 2025 Dr. Angela Rodriguez MD Attending Provider Active Start: June 28, 2025 End: June 28, 2025 Dr. Angela Rodriguez MD Referring Provider Active Start: June 28, 2025 End: June 28, 2025 Team Status: Active Member Role/Relationship Status Dates Dr. Jacob Jennings DO Primary care physician Active Team Status: Inactive Member Role/Relationship Status Dates Dr. Jacob Jennings DO Primary care physician Active Start: March 29, 2025 End: March 29, 2025 Dr. Jacob Jennings DO Referring Provider Active Start: March 29, 2025 End: March 29, 2025 Verónica Meadows NP, CHARGE OUT CLERK-C Attending physician Active Start: March 29, 2025 End: March 29, 2025 Team Status: Inactive Member Role/Relationship Status Dates Dr. Jacob Jennings DO Primary care physician Active Start: March 30, 2025 End: March 30, 2025 Dr. Jacob Jennings DO Referring Provider Active Start: March 30, 2025 End: March 30, 2025 Dr. Michael Chambers DO Attending physician Active Start: March 30, 2025 End: March 30, 2025 Team Status: Inactive Member Role/Relationship Status Dates Dr. Jacob Jennings DO Primary care physician Active Start: April 12, 2025 End: April 12, 2025 Dr. Jacob Jennings DO Referring Provider Active Start: April 12, 2025 End: April 12, 2025 Dr. Angela Rodriguez MD Attending physician Active Start: April 12, 2025 End: April 12, 2025 Team Status: Inactive Member Role/Relationship Status Dates Dr. Jacob Jennings DO Primary care physician Active Start: May 02, 2025 End: May 02, 2025 Dr. Jacob Jennings DO Referring Provider Active Start: May 02, 2025 End: May 02, 2025 Verónica Meadows CHARGE OUT CLERK, CHARGE OUT CLERK-C Attending physician Active Start: May 02, 2025 End: May 02, 2025 Team Status: Inactive Member Role/Relationship Status Dates Dr. Jacob Jennings DO Primary care physician Active Start: May 24, 2025 End: May 24, 2025 Dr. Jacob Jennings DO Referring Provider Active Start: May 24, 2025 End: May 24, 2025 Dr. Angela Rodriguez MD Attending physician Active Start: May 24, 2025 End: May 24, 2025 Team Status: Inactive Member Role/Relationship Status Dates Dr. Jacob Jennings DO Primary care physician Active Start: June 09, 2025 End: June 09, 2025 Dr. Jacob Jennings DO Referring Provider Active Start: June 09, 2025 End: June 09, 2025 Monalisa Dunne CHARGE OUT CLERK, CHARGE OUT CLERK-C Attending physician Active Start: June 09, 2025 End: June 09, 2025 Team Status: Inactive Member Role/Relationship Status Dates Dr. Jacob Jennings DO Primary care physician Active Start: June 15, 2025 End: June 15, 2025 Dr. Jacob Jennings DO Referring Provider Active Start: June 15, 2025 End: June 15, 2025 Verónica Meadows CHARGE OUT CLERK, CHARGE OUT CLERK-C Attending physician Active Start: June 15, 2025 End: June 15, 2025 Team Status: Inactive Member Role/Relationship Status Dates Dr. Jacob Jennings DO Primary care physician Active Start: June 28, 2025 End: June 28, 2025 Dr. Angela Rodriguez MD Attending physician Active Start: June 28, 2025 End: June 28, 2025 Dr. Angela Rodriguez MD Referring Provider Active Start: June 28, 2025 End: June 28, 2025 Team Status: Inactive Member Role/Relationship Status Dates Dr. Jacob Jennings DO Primary care physician Active Start: July 04, 2025 End: July 04, 2025 Dr. Jacob Jennings DO Referring Provider Active Start: July 04, 2025 End: July 04, 2025 Dr. Michael Chambers DO Attending physician Active Start: July 04, 2025 End: July 04, 2025 Team Status: Inactive Member Role/Relationship Status Dates Dr. Jacob Jennings DO Primary care physician Active Start: July 05, 2025 End: July 05, 2025 Dr. Jacob Jennings DO Referring Provider Active Start: July 05, 2025 End: July 05, 2025 Dr. Angela Rodriguez MD Attending physician Active Start: July 05, 2025 End: July 05, 2025 Team Status: Inactive Member Role/Relationship Status Dates Dr. Jacob Jennings DO Primary care physician Active Start: July 26, 2025 End: July 26, 2025 Dr. Jacob Jennings DO Referring Provider Active Start: July 26, 2025 End: July 26, 2025 Verónica Meadows NP CHARGE OUT CLERK-C Attending physician Active Start: July 26, 2025 End: July 26, 2025 Team Status: Active Member Role/Relationship Status Dates Dr. Jacob Jennings DO Primary care physician Active Start: July 26, 2025 Dr. Angela Rodriguez MD Attending physician Active Start: July 26, 2025 Dr. Angela Rodriguez MD Referring Provider Active Start: July 26, 2025 Team Status: Inactive Member Role/Relationship Status Dates Dr. Jacob Jennings DO Primary care physician Active Start: April 12, 2025 End: April 12, 2025 Dr. Jacob Jennings DO Referring Provider Active Start: April 12, 2025 End: April 12, 2025 Dr. Angela Rodriguez MD Attending physician Active Start: April 12, 2025 End: April 12, 2025 Team Status: Inactive Member Role/Relationship Status Dates Dr. Jacob Jennings DO Primary care physician Active Start: May 02, 2025 End: May 02, 2025 Dr. Jacob Jennings DO Referring Provider Active Start: May 02, 2025 End: May 02, 2025 Verónica Meadows NP CHARGE OUT CLERK-C Attending physician Active Start: May 02, 2025 End: May 02, 2025 Team Status: Inactive Member Role/Relationship Status Dates Dr. Jacob Jennings DO Primary care physician Active Start: May 24, 2025 End: May 24, 2025 Dr. Jacob Jennings DO Referring Provider Active Start: May 24, 2025 End: May 24, 2025 Dr. Angela Rodriguez MD Attending physician Active Start: May 24, 2025 End: May 24, 2025 Team Status: Inactive Member Role/Relationship Status Dates Dr. Jacob Jennings DO Primary care physician Active Start: June 09, 2025 End: June 09, 2025 Dr. Jacob Jennings DO Referring Provider Active Start: June 09, 2025 End: June 09, 2025 Monalisa Dunne CHARGE OUT CLERK, CHARGE OUT CLERK-C Attending physician Active Start: June 09, 2025 End: June 09, 2025 Team Status: Inactive Member Role/Relationship Status Dates Dr. Jacob Jennings DO Primary care physician Active Start: June 15, 2025 End: June 15, 2025 Dr. Jacob Jennings DO Referring Provider Active Start: June 15, 2025 End: June 15, 2025 Verónica Meadows CHARGE OUT CLERK, CHARGE OUT CLERK-C Attending physician Active Start: June 15, 2025 End: June 15, 2025 Team Status: Inactive Member Role/Relationship Status Dates Dr. Jacob Jennings DO Primary care physician Active Start: June 28, 2025 End: June 28, 2025 Dr. Angela Rodriguez MD Attending physician Active Start: June 28, 2025 End: June 28, 2025 Dr. Angela Rodriguez MD Referring Provider Active Start: June 28, 2025 End: June 28, 2025 Team Status: Inactive Member Role/Relationship Status Dates Dr. Jacob Jennings DO Primary care physician Active Start: July 04, 2025 End: July 04, 2025 Dr. Jacob Jennings DO Referring Provider Active Start: July 04, 2025 End: July 04, 2025 Dr. Michael Chambers DO Attending physician Active Start: July 04, 2025 End: July 04, 2025 Team Status: Inactive Member Role/Relationship Status Dates Dr. Jacob Jennings DO Primary care physician Active Start: July 05, 2025 End: July 05, 2025 Dr. Jacob Jennings DO Referring Provider Active Start: July 05, 2025 End: July 05, 2025 Dr. Angela Rodriguez MD Attending physician Active Start: July 05, 2025 End: July 05, 2025 Team Status: Inactive Member Role/Relationship Status Dates Dr. Jacob Jennings DO Primary care physician Active Start: July 26, 2025 End: July 26, 2025 Dr. Jacob Jennings DO Referring Provider Active Start: July 26, 2025 End: July 26, 2025 Verónica Meadows NP, CHARGE OUT CLERK-C Attending physician Active Start: July 26, 2025 End: July 26, 2025 Team Status: Active Member Role/Relationship Status Dates Dr. Jacob Jennings DO Primary care physician Active Start: July 26, 2025 Dr. Angela Rodriguez MD Attending physician Active Start: July 26, 2025 Dr. Angela Rodriguez MD Referring Provider Active Start: July 26, 2025 Team Status: Inactive Member Role/Relationship Status Dates Dr. Jacob Jennings DO Primary care physician Active Start: August 04, 2025 End: August 04, 2025 Dr. Jacob Jennings DO Referring Provider Active Start: August 04, 2025 End: August 04, 2025 Dr. Thien Sandoval MD Attending physician Active Start: August 04, 2025 End: August 04, 2025 Team Status: Inactive Member Role/Relationship Status Dates Dr. Jacob Jennings DO Primary care physician Active Start: May 02, 2025 End: May 02, 2025 Dr. Jacob Jennings DO Referring Provider Active Start: May 02, 2025 End: May 02, 2025 Verónica Meadows NP, CHARGE OUT CLERK-C Attending physician Active Start: May 02, 2025 End: May 02, 2025 Team Status: Inactive Member Role/Relationship Status Dates Dr. Jacob Jennings DO Primary care physician Active Start: May 24, 2025 End: May 24, 2025 Dr. Jacob Jennings DO Referring Provider Active Start: May 24, 2025 End: May 24, 2025 Dr. Angela Rodriguez MD Attending physician Active Start: May 24, 2025 End: May 24, 2025 Team Status: Inactive Member Role/Relationship Status Dates Dr. Jacob Jennings DO Primary care physician Active Start: June 09, 2025 End: June 09, 2025 Dr. Jacob Jennings DO Referring Provider Active Start: June 09, 2025 End: June 09, 2025 Monalisa Dunne CHARGE OUT CLERK, CHARGE OUT CLERK-C Attending physician Active Start: June 09, 2025 End: June 09, 2025 Team Status: Inactive Member Role/Relationship Status Dates Dr. Jacob Jennings DO Primary care physician Active Start: June 15, 2025 End: June 15, 2025 Dr. Jacob Jennings DO Referring Provider Active Start: June 15, 2025 End: June 15, 2025 Verónica Meadows CHARGE OUT CLERK, CHARGE OUT CLERK-C Attending physician Active Start: June 15, 2025 End: June 15, 2025 Team Status: Inactive Member Role/Relationship Status Dates Dr. Jacob Jennings DO Primary care physician Active Start: June 28, 2025 End: June 28, 2025 Dr. Angela Rodriguez MD Attending physician Active Start: June 28, 2025 End: June 28, 2025 Dr. Angela Rodriguez MD Referring Provider Active Start: June 28, 2025 End: June 28, 2025 Team Status: Inactive Member Role/Relationship Status Dates Dr. Jacob Jennings DO Primary care physician Active Start: July 04, 2025 End: July 04, 2025 Dr. Jacob Jennings DO Referring Provider Active Start: July 04, 2025 End: July 04, 2025 Dr. Michael Chambers DO Attending physician Active Start: July 04, 2025 End: July 04, 2025 Team Status: Inactive Member Role/Relationship Status Dates Dr. Jacob Jennings DO Primary care physician Active Start: July 05, 2025 End: July 05, 2025 Dr. Jacob Jennings DO Referring Provider Active Start: July 05, 2025 End: July 05, 2025 Dr. Angela Rodriguez MD Attending physician Active Start: July 05, 2025 End: July 05, 2025 Team Status: Inactive Member Role/Relationship Status Dates Dr. Jacob Jennings DO Primary care physician Active Start: July 26, 2025 End: July 26, 2025 Dr. Jacob Jennings DO Referring Provider Active Start: July 26, 2025 End: July 26, 2025 Verónica Meadows NP, CHARGE OUT CLERK-C Attending physician Active Start: July 26, 2025 End: July 26, 2025 Team Status: Inactive Member Role/Relationship Status Dates Dr. aJcob Jennings DO Primary care physician Active Start: August 04, 2025 End: August 04, 2025 Dr. Jacob Jennings DO Referring Provider Active Start: August 04, 2025 End: August 04, 2025 Dr. Thien Sandoval MD Attending physician Active Start: August 04, 2025 End: August 04, 2025 Team Status: Inactive Member Role/Relationship Status Dates Dr. Jacob Jennings DO Primary care physician Active Start: August 16, 2025 End: August 16, 2025 Dr. Jacob Jennings DO Referring Provider Active Start: August 16, 2025 End: August 16, 2025 Verónica Meadows CHARGE OUT CLERK, CHARGE OUT CLERK-C Attending physician Active Start: August 16, 2025 End: August 16, 2025 Team Status: Active Member Role/Relationship Status Dates Dr. Jacob Jennings DO Primary care physician Active Start: August 16, 2025 Dr. Angela Rodriguez MD Attending physician Active Start: August 16, 2025 Dr. Angela Rodriguez MD Referring Provider Active Start: August 16, 2025 Cold Rolling Supervisor Relationship Specialty Start Date End Date Jacob Jennings DO [address] [facility] [address] [place] [phone] PCP - General 05/28/15 Team Status: Inactive Member Role/Relationship Status Dates Dr. Jacob Jennings DO Primary care physician Active Start: May 24, 2025 End: May 24, 2025 Dr. Jacob Jennings DO Referring Provider Active Start: May 24, 2025 End: May 24, 2025 Dr. Angela Rodriguez MD Attending physician Active Start: May 24, 2025 End: May 24, 2025 Team Status: Inactive Member Role/Relationship Status Dates Dr. Jacob Jennings DO Primary care physician Active Start: June 09, 2025 End: June 09, 2025 Dr. Jacob Jennings DO Referring Provider Active Start: June 09, 2025 End: June 09, 2025 Monalisa Dunne CHARGE OUT CLERK, CHARGE OUT CLERK-C Attending physician Active Start: June 09, 2025 End: June 09, 2025 Team Status: Inactive Member Role/Relationship Status Dates Dr. Jacob Jennings DO Primary care physician Active Start: June 15, 2025 End: June 15, 2025 Dr. Jacob Jennings DO Referring Provider Active Start: June 15, 2025 End: June 15, 2025 Verónica Meadows CHARGE OUT CLERK, CHARGE OUT CLERK-C Attending physician Active Start: June 15, 2025 End: June 15, 2025 Team Status: Inactive Member Role/Relationship Status Dates Dr. Jacob Jennings DO Primary care physician Active Start: June 28, 2025 End: June 28, 2025 Dr. Angela Rodriguez MD Attending physician Active Start: June 28, 2025 End: June 28, 2025 Dr. Angela Rodriguez MD Referring Provider Active Start: June 28, 2025 End: June 28, 2025 Team Status: Inactive Member Role/Relationship Status Dates Dr. Jacob Jennings DO Primary care physician Active Start: July 04, 2025 End: July 04, 2025 Dr. Jacob Jennings DO Referring Provider Active Start: July 04, 2025 End: July 04, 2025 Dr. Michael Chambers DO Attending physician Active Start: July 04, 2025 End: July 04, 2025 Team Status: Inactive Member Role/Relationship Status Dates Dr. Jacob Jennings DO Primary care physician Active Start: July 05, 2025 End: July 05, 2025 Dr. Jacob Jennings DO Referring Provider Active Start: July 05, 2025 End: July 05, 2025 Dr. Angela Rodriguez MD Attending physician Active Start: July 05, 2025 End: July 05, 2025 Team Status: Inactive Member Role/Relationship Status Dates Dr. Jacob Jennings DO Primary care physician Active Start: July 26, 2025 End: July 26, 2025 Dr. Jacob Jennings DO Referring Provider Active Start: July 26, 2025 End: July 26, 2025 Verónica Meadows CHARGE OUT CLERK, CHARGE OUT CLERK-C Attending physician Active Start: July 26, 2025 End: July 26, 2025 Team Status: Inactive Member Role/Relationship Status Dates Dr. Jacob Petrilla , DO Primary care physician Active Start: August 04, 2025 End: August 04, 2025 Dr. Jacob Jennings DO Referring Provider Active Start: August 04, 2025 End: August 04, 2025 Dr. Thien Sandoval MD Attending physician Active Start: August 04, 2025 End: August 04, 2025 Team Status: Inactive Member Role/Relationship Status Dates Dr. Jacob Jennings DO Primary care physician Active Start: August 16, 2025 End: August 16, 2025 Dr. Jacob Jennings DO Referring Provider Active Start: August 16, 2025 End: August 16, 2025 Verónica Meadows CHARGE OUT CLERK, CHARGE OUT CLERK-C Attending physician Active Start: August 16, 2025 End: August 16, 2025 Team Status: Active Member Role/Relationship Status Dates Dr. Jacob Jennings DO Primary care physician Active Start: August 16, 2025 Dr. Angela Rodriguez MD Attending physician Active Start: August 16, 2025 Dr. Angela Rodriguez MD Referring Provider Active Start: August 16, 2025 Team Status: Inactive Member Role/Relationship Status Dates Dr. Jacob Jennings DO Primary care physician Active Start: August 19, 2025 End: August 22, 2025 Dr. Chris Medina , DO Admitting physician Activ e Start: August 19, 2025 End: August 22, 2025 Dr. Chris Medina DO Nurse Practitioner Active Start: August 19, 2025 End: August 22, 2025 Dr. Artemio Farrar MD Nurse Practitioner Active Start: August 19, 2025 End: August 22, 2025 Dr. Antwan Pitts MD Attending physician Active Start: August 19, 2025 End: August 22, 2025 Dr. Emmanuel Kaiser MD Nurse Practitioner Active Start: August 19, 2025 End: August 22, 2025 Team Status: Active Member Role/Relationship Status Dates Dr. Jacob Jennings DO Primary care physician Active Start: August 20, 2025 Dr. Chris Medina DO Admitting physician Activ e Start: August 20, 2025 Dr. Chris Medina DO Nurse Practitioner Active Start: August 20, 2025 Dr. Emmanuel Kaiser MD Attending physician Active Start: August 20, 2025 Dr. Emmanuel Kaiser MD Nurse Practitioner Active Start: August 20, 2025 Dr. Artemio Farrar MD Nurse Practitioner Active Start: August 20, 2025 Team Status: Active Member Role/Relationship Status Dates Dr. Jacob Jennings DO Primary care physician Active Start: August 20, 2025 Dr. Chris Medina DO Admitting physician Activ e Start: August 20, 2025 Dr. Chris Medina DO Nurse Practitioner Active Start: August 20, 2025 Dr. Emmanuel Kaiser MD Nurse Practitioner Active Start: August 20, 2025 Dr. Artemio Farrar MD Attending physician Active Start: August 20, 2025 Dr. Artemio Farrar MD Nurse Practitioner Active Start: August 20, 2025 Team Status: Active Member Role/Relationship Status Dates Dr. Jacob Jennings DO Primary care physician Active Start: August 21, 2025 Dr. Chris Medina DO Admitting physician Activ e Start: August 21, 2025 Dr. Chris Medina DO Nurse Practitioner Active Start: August 21, 2025 Dr. Artemio Farrar MD Nurse Practitioner Active Start: August 21, 2025 Dr. Antwan Pitts MD Attending physician Active Start: August 21, 2025 Dr. Antwan Pitts MD Nurse Practitioner Active Start: August 21, 2025 Dr. Emmanuel Kaiser MD Nurse Practitioner Active Start: August 21, 2025 Team Status: Active Member Role/Relationship Status Dates Dr. Jacob Jennings DO Primary care physician Active Start: August 22, 2025 Dr. Chris Medina DO Admitting physician Activ e Start: August 22, 2025 Dr. Chris Medina DO Nurse Practitioner Active Start: August 22, 2025 Dr. Artemio Farrar MD Nurse Practitioner Active Start: August 22, 2025 Dr. Antwan Pitts MD Nurse Practitioner Active Start: August 22, 2025 Dr. Emmanuel Kaiser MD Nurse Practitioner Active Start: August 22, 2025 IVETH Caba Attending physician Active Start : August 22, 2025 Team Status: Active Member Role/Relationship Status Dates Dr. Jacob Jennings DO Primary care physician Active Start: August 22, 2025 Dr. Chris Medina DO Admitting physician Activ e Start: August 22, 2025 Dr. Chris Medina DO Nurse Practitioner Active Start: August 22, 2025 Dr. Artemio Farrar MD Nurse Practitioner Active Start: August 22, 2025 Dr. Antwan Pitts MD Attending physician Active Start: August 22, 2025 Dr. Antwan Pitts MD Nurse Practitioner Active Start: August 22, 2025 Dr. Emmanuel Kaiser MD Nurse Practitioner Active Start: August 22, 2025 Team Status: Inactive Member Role/Relationship Status Dates Dr. Jacob Jennings DO Primary care physician Active Start: August 24, 2025 End: August 24, 2025 Dr. Jacob Jennings DO Referring Provider Active Start: August 24, 2025 End: August 24, 2025 Dr. Artemio Farrar MD Attending physician Active Start: August 24, 2025 End: August 24, 2025 Cold Rolling Supervisor Relationship Specialty Start Date End Date Jacob Jennings DO [address] [facility] [address] [place] [phone] PCP - General 05/28/15 Cold Rolling Supervisor Relationship Specialty Start Date End Date Dick Jacob Robin [address] [place] [phone] PCP - General 05/28/15 Cold Rolling Supervisor Relationship Specialty Start Date End Date Jacob Jennings DO [address] [facility] [address] [place] [phone] PCP - General 05/28/15 09/14/25 Eleuterio Hatch MD [address] [place] [address] [place], [place] [id number] PCP - General Family Medicine 09/15/25 Source Comments (unrecognize d section and content) In the event this informatio n is protected by the Federal Confidentiality of Alcohol and Drug Abuse Patient Records regulations: The Federal rules restrict any use of the information to criminally investigate or prosecute any alcohol or drug abuse patient.[facility]In the event this information is protected by the Federal Confidentiality of Alcohol and Drug Abuse Patient Records regulations: The Federal rules restrict any use of the information to criminally investigate or prosecute any alcohol or drug abuse patient.[facility]In the event this information is protected by the Federal Confidentiality of Alcohol and Drug Abuse Patient Records regulations: The Federal rules restrict any use of the information to criminally investigate or prosecute any alcohol or drug abuse patient.[facility] ColumbusIn the event this information is protected by the Federal Confidentiality of Alcohol and Drug Abuse Patient Records regulations: The Federal rules restrict any use of the information to criminally investigate or prosecute any alcohol or drug abuse patient.[facility] ColumbusIn the event this information is protected by the Federal Confidentiality of Alcohol and Drug Abuse Patient Records regulations: The Federal rules restrict any use of the information to criminally investigate or prosecute any alcohol or drug abuse patient.[facility] ColumbusIn the event this information is protected by the Federal Confidentiality of Alcohol and Drug Abuse Patient Records regulations: The Federal rules restrict any use of the information to criminally investigate or prosecute any alcohol or drug abuse patient.[facility] ColumbusIn the event this information is protected by the Federal Confidentiality of Alcohol and Drug Abuse Patient Records regulations: The Federal rules restrict any use of the information to criminally investigate or prosecute any alcohol or drug abuse patient.[facility] ColumbusIn the event this information is protected by the Federal Confidentiality of Alcohol and Drug Abuse Patient Records regulations: The Federal rules restrict any use of the information to criminally investigate or prosecute any alcohol or drug abuse patient.[facility] ColumbusIn the event this information is protected by the Federal Confidentiality of Alcohol and Drug Abuse Patient Records regulations: The Federal rules restrict any use of the information to criminally investigate or prosecute any alcohol or drug abuse patient.[facility] ColumbusIn the event this information is protected by the Federal Confidentiality of Alcohol and Drug Abuse Patient Records regulations: The Federal rules restrict any use of the information to criminally investigate or prosecute any alcohol or drug abuse patient.[facility] ColumbusIn the event this information is protected by the Federal Confidentiality of Alcohol and Drug Abuse Patient Records regulations: The Federal rules restrict any use of the information to criminally investigate or prosecute any alcohol or drug abuse patient.[facility] ColumbusIn the event this information is protected by the Federal Confidentiality of Alcohol and Drug Abuse Patient Records regulations: The Federal rules restrict any use of the information to criminally investigate or prosecute any alcohol or drug abuse patient.[facility] ColumbusIn the event this information is protected by the Federal Confidentiality of Alcohol and Drug Abuse Patient Records regulations: The Federal rules restrict any use of the information to criminally investigate or prosecute any alcohol or drug abuse patient.[facility] ColumbusIn the event this information is protected by the Federal Confidentiality of Alcohol and Drug Abuse Patient Records regulations: The Federal rules restrict any use of the information to criminally investigate or prosecute any alcohol or drug abuse patient.[facility] ColumbusIn the event this information is protected by the Federal Confidentiality of Alcohol and Drug Abuse Patient Records regulations: The Federal rules restrict any use of the information to criminally investigate or prosecute any alcohol or drug abuse patient.[facility] ColumbusIn the event this information is protected by the Federal Confidentiality of Alcohol and Drug Abuse Patient Records regulations: The Federal rules restrict any use of the information to criminally investigate or prosecute any alcohol or drug abuse patient.[facility] ColumbusIn the event this information is protected by the Federal Confidentiality of Alcohol and Drug Abuse Patient Records regulations: The Federal rules restrict any use of the information to criminally investigate or prosecute any alcohol or drug abuse patient.[facility] ColumbusIn the event this information is protected by the Federal Confidentiality of Alcohol and Drug Abuse Patient Records regulations: The Federal rules restrict any use of the information to criminally investigate or prosecute any alcohol or drug abuse patient.[facility] ColumbusIn the event this information is protected by the Federal Confidentiality of Alcohol and Drug Abuse Patient Records regulations: The Federal rules restrict any use of the information to criminally investigate or prosecute any alcohol or drug abuse patient.[facility] ColumbusIn the event this information is protected by the Federal Confidentiality of Alcohol and Drug Abuse Patient Records regulations: The Federal rules restrict any use of the information to criminally investigate or prosecute any alcohol or drug abuse patient.[facility] ColumbusIn the event this information is protected by the Federal Confidentiality of Alcohol and Drug Abuse Patient Records regulations: The Federal rules restrict any use of the information to criminally investigate or prosecute any alcohol or drug abuse patient.[facility] ColumbusIn the event this information is protected by the Federal Confidentiality of Alcohol and Drug Abuse Patient Records regulations: The Federal rules restrict any use of the information to criminally investigate or prosecute any alcohol or drug abuse patient.[facility] ColumbusIn the event this information is protected by the Federal Confidentiality of Alcohol and Drug Abuse Patient Records regulations: The Federal rules restrict any use of the information to criminally investigate or prosecute any alcohol or drug abuse patient.[facility] ColumbusIn the event this information is protected by the Federal Confidentiality of Alcohol and Drug Abuse Patient Records regulations: The Federal rules restrict any use of the information to criminally investigate or prosecute any alcohol or drug abuse patient.[facility] ColumbusIn the event this information is protected by the Federal Confidentiality of Alcohol and Drug Abuse Patient Records regulations: The Federal rules restrict any use of the information to criminally investigate or prosecute any alcohol or drug abuse patient.[facility] ColumbusIn the event this information is protected by the Federal Confidentiality of Alcohol and Drug Abuse Patient Records regulations: The Federal rules restrict any use of the information to criminally investigate or prosecute any alcohol or drug abuse patient.[facility] ColumbusIn the event this information is protected by the Federal Confidentiality of Alcohol and Drug Abuse Patient Records regulations: The Federal rules restrict any use of the information to criminally investigate or prosecute any alcohol or drug abuse patient.[facility] ColumbusIn the event this information is protected by the Federal Confidentiality of Alcohol and Drug Abuse Patient Records regulations: The Federal rules restrict any use of the information to criminally investigate or prosecute any alcohol or drug abuse patient.[facility] ColumbusIn the event this information is protected by the [facility] Confidentiality of Alcohol and Drug Abuse Patient Records regulations: The Federal rules restrict any use of the information to criminally investigate or prosecute any alcohol or drug abuse patient.[facility] ColumbusIn the event this information is protected by the Federal Confidentiality of Alcohol and Drug Abuse Patient Records regulations: The Federal rules restrict any use of the information to criminally investigate or prosecute any alcohol or drug abuse patient.[facility] FOR RECORDS PERTAINING TO PATIENTS WHO ARE [...] BE BASED ON THE PRIMARY CLINICAL RECORDS. [employer] [facility]. provides no warranty or guarantee of the accuracy or completeness of information in this document.
== END | disposition home or self-care (01) ==
LOC: NM 06:35
PROVIDERS: PCP Family Medicine; Referring Provider Nurse Practitioner Family; Visit Provider Nurse Practitioner Family
DX: C64.9 Malignant neoplasm of unspecified kidney, except renal pelvis (principal); C78.01 Secondary malignant neoplasm of right lung
CPT/HCPCS: 78306; A9503

== ENCOUNTER → 2025-10-18 | Outpatient (CLI) | payer MEDICARE, OTHER, SELFPAY ==
--- NOTE | 2025-10-18 07:07 | MRI_ITS ---
PROCEDURE: SPINE THORACIC W/WO CONTRAST 10/18/2025 REASON FOR EXAM: BONE METS - R/O CORD COMPRESSION TECHNIQUE: Thoracic spine MRI without and with intravenous gadolinium-based contrast. Multiplanar and multisequence images were obtained. CONTRAST: Gadolinium based contrast VOLUME: 17mL COMPARISON: CT abdomen pelvis dated 10/12/2025 FINDINGS: Vertebrae: T12: Enhancing T2 hyperintense and T1 hypointense mass replacing T12 vertebral body with right eccentric retropulsion causing severe spinal canal stenosis. The rest of the vertebral bodies: Thoracic vertebral body heights are preserved. Bone marrow signal is unremarkable. Alignment: Normal. No spondylolisthesis. Spinal Cord: At T12 level, there is no evidence of cord signal abnormality to suggest cord compression. Disc spaces: Mild multilevel thoracic degenerative changes without central canal stenosis. Paraspinal Tissues: Unremarkable. Postcontrast images: Enhancing T12 vertebral body mass as above. MRI/Spine Thoracic W/WO Contrast IMPRESSION: Enhancing T2 hyperintense and T1 hypointense mass replacing T12 vertebral body with right eccentric retropulsion causing severe spinal canal stenosis. At T12 level, there is no evidence of cord signal abnorm ality to suggest cord compression. However due to severe spinal canal stenosis, cord compression will be imminent and require urg ent spine surgery evaluation. Reading Location: [facility]
--- NOTE | 2025-10-18 07:07 | MRI_ITS ---
PROCEDURE: SPINE LUMBAR W/WO CONTRAST 10/18/2025 REASON FOR EXAM: METS TO BONE - R/O CORD COMPRESSION TECHNIQUE: Procedure Code: [id number] Modality: MR Procedure: SPINE LUMBAR W/WO CONTRAST Multiplanar and multisequence images were obtained without and with intravenous gadolinium-based contrast administration. CONTRAST: Gadolinium based in contrast VOLUME: 17 mL COMPARISON: CT abdomen pelvis performed on 10/12/2025 FINDINGS: Vertebrae: Lumbar vertebral body heights are preserved. T12 vertebral body posterior aspect mass with retropulsion, see characterization on thoracic spine MRI. Alignment: Normal. No spondylolisthesis. Conus Medullaris: Normally positioned. L1-2: Moderate disk space narrowing. Moderate disk bulge. No high-grade spinal canal stenosis or neuroforaminal stenosis. L2-3: Moderate disk space narrowing. Moderate disk bulge. No high-grade spinal canal stenosis. Moderate left neural foraminal stenosis. No right neural foraminal stenosis. L3-4: Mild disk bulge. No high-grade spinal canal stenosis. Moderate left neural foraminal stenosis. No right neural foraminal stenosis. L4-5: Mild disk bulge. Mild spinal canal stenosis due to disc bulge and ligamentum flavum thickening. Moderate bilateral neural foraminal stenosis. L5-S1: Moderate disk space narrowing. Moderate disk bulge. No significant spinal canal narrowing. There is moderate right neural foraminal stenosis and severe left neural foraminal stenosis. Sacrum: Visualized upper sacrum and SI joints are unremarkable. Postcontrast images: Redemonstrated T12 enhancing mass. MRI/Spine Lumbar W/WO Contrast IMPRESSION: Redemonstrated T12 enhancing mass with retropulsion better depicted on MRI of t he thoracic spine performed on the same day. No metastatic lesion noted within the imaged lumbar spine. Reading Location: [facility]
--- OUTSIDE RECORDS SUMMARY | 2025-10-18 07:12 | XMS RPT_ITS | CCD ---
Author Organization [facility] CliniSyma Care Team Providers Care Line Construction Supervisor Name Role Phone Jacob Jennings Primary Care Provider Dr. Jacob Jennings Primary Care Provider Dr. Jacob Jennings Referring Provider Dr. Angela Rodriguez Attending Provider Dori DIAMOND GRINDER, DIAMOND GRINDER-C [place] Attending Provider Dr. Thien Sandoval Attending Provider 1([facility])[phone] Jacob Jennings Primary Care Provider Dr. Jacob Jennings Referring Provider Dr. Angela Rodriguez Attending Provider IVETH Rios Attending Provider Dr. Thien Sandoval Attending Provider Dori DIAMOND GRINDER, DIAMOND GRINDER-C [place]ón[place] Attending Provider Dr. Jacob Jennings Primary Care Provider Dr. Jacob Jennings Referring Provider Dr. Angela Rodriguez Attending Provider IVETH Rios Attending Provider Dr. Thien Sandoval Attending Provider 1([facility])[phone] Dori DIAMOND GRINDER, DIAMOND GRINDER-C [place] Attending Provider Dr. Percy Tao Attending Provider Dr. Jacob Jennings Primary Care Provider 1([facility] )[phone] Dr. Jacob Jennings Referring Provider Dr. Angela [...] Unavailable DICK TAYLOR, DR. JAMES Primary Care [facility] ble Dr. Jacob Jennings Primary Care Provider Dr. Jacob Jennings Referring Provider Dori DIAMOND GRINDER, DIAMOND GRINDER-C [place]ón[place] Attending Provider Dr. Benito Malcolm Attending Provider Dr. Benito Malcolm Referring Provider Dr. Benito Malcolm Other Provider Dr. Thaddeus Patel Attending Provider Dr. Jacob Jennings Primary Care Provider Dr. Jacob Jennings Referring Provider Dr. Angela Rodriguez Attending Provider Dori DIAMOND GRINDER, DIAMOND GRINDER-C [place]ón[place] Attending Provider Dr. Percy Tao Attending [...] Care Provider Dick, Dr. James Referring Provider 1([facility])[phone] Dori DIAMOND GRINDER, DIAMOND GRINDER-C [place]ón[place] Attending Provider Dr. Percy Tao Attending Provider Dr. Jacob Jennings Primary Care Provider Dr. Jacob Jennings Referring Provider Dr. Benito Malcolm Attending Provider Dr. Angela Rodriguez Attending Provider Dori DIAMOND GRINDER, DIAMOND GRINDER-C Verón[place] Attending Provider Uzair ANTOINE, DIAMOND GRINDER-C Monalisa Attending Provider Dr. Jacob Jennings Primary Care Provider Dr. Jacob Jennings Referring Provider Dr. Angela Rodriguez Attending Provider Dr. Pineda Porter Attending Provider Dr. Thien Sandoval Attending Provider Dr. Percy Tao Attending Provider Dori DIAMOND GRINDER, DIAMOND GRINDER-C Veróncia Attending Provider Uzair ANTOINE, DIAMOND GRINDER-C Monalisa Attending Provider [phone] Dr. Indio Simon Emergency Provider [phone] Tara Mae Admit Provider Dr. Tara Mae Other Provider Dr. Thaddeus Patel Attending Provider Dr. Thaddeus Patel Other Provider Dr. Benito Mlacolm Other Provider Dr. Tu Zhang Other Provider Telly, Dr. Oneal Other Provider Unavailab demetrius Dunne DIAMOND GRINDER, DIAMOND GRINDER-C Monalisa Other Provider Dr. Khalif Quevedo Other [...] Jm Varner Other Provider Unavailab demetrius Dunne DIAMOND GRINDER, DIAMOND GRINDER-C Monalisa Other Provider Dr. Khalif Quevedo Referring Provider Dr. Khalif Quevedo Other Provider Reyes, Dr. Rodriguez Attending Provider Dr. Tara Mae Attending Provider Dr. Benito Malcolm Attending Provider Dr. Khalif Quevedo Attending Provider Dr. Jacob Jennings Primary Care Provider Dr. Jacob Jennings Referring Provider Dori DIAMOND GRINDER, DIAMOND GRINDER-C Verón[place] Attending Provider Uzair DIAMOND GRINDER, DIAMOND GRINDER-C Monalisa Attending Provider Dr. Angela Rodriguez Attending Provider Dr. Thien Sandoval Attending Provider Dr. Benito Malcolm Attending Provider Dr. Jacob Jennings Primary Care Provider Dr. Jacob Jennings Referring Provider Dr. Angela Rodriguez Attending Provider Dori DIAMOND GRINDER, DIAMOND GRINDER-C [place]ón[place] Attending Provider Dr. Thien Sandoval Attending [...] Provider Dr. Lj Piña Attending Provider Dori DIAMOND GRINDER, DIAMOND GRINDER-C Verón[place] Attending Provider Uzair DIAMOND GRINDER, DIAMOND GRINDER-C Monalisa Attending Provider Johanna Flynn Attending Provider Unavailabl Dr. Thien Srivastava Attending Provider Dr. Jacob Jennings Primary Care Provider Dr. Jacob Jennings Referring Provider Dr. Angela Rodriguez Attending Provider Dr. Lj Piña Attending Provider Dori DIAMOND GRINDER, DIAMOND GRINDER-C Verónica Attending Provider Uzair DIAMOND GRINDER, DIAMOND GRINDER-C Monalisa Attending Provider Johanna Flynn Attending Provider [...] TAYLOR, Dr. James Primary Care Provider [phone] Dick TAYLOR, Dr. James Referring Provider Reyes TAYLOR, Dr. Rodriguez Attending Provider Gage Rios Attending Provider Lynsey BAUTISTA, Mahesh Referring Provider Lynsey BAUTISTA, Mahesh Emergency Provider Alfredo BAUTISTA, Dr. Sayra Augustin Admit Provider [phone] Alfredo BAUTISTA, Dr. Sayra Augustin Other Provider Emory BAUTISTA, Dr. Amber Angel Attending Provider Emory BAUTISTA, Dr. Amber Angel Other Provider Dori DIAMOND GRINDER-C, Verónica Attending Provider Aurora BAUTISTA, Dr. Borjas Attending Provider Aurora BAUTISTA, Dr. Borjas Emergency Provider Adam TAYLOR, Dr. Perez Attending Provider Adam TAYLOR, Dr. Perez Admit Provider Adam TAYLOR, Dr. Perez Other Provider Reymundo BAUTISTA, Dr. Dalal Other Provider Unavailab [...] Malina BAUTISTA, Dr. Antwan Dee Other Provider [phone] Shyam BAUTISTA, Dr. Cortes Other Provider [phone] Mary BAUTISTA, Dr. Crocker Other Provider [phone] Mounika BAUTISTA, Dr. Sanchez Other Provider [phone] Angel BAUTISTA, Dr. Beckham Other Provider [phone] Delonte BAUTISTA, Dr. De Other Provider [phone] Tavon BAUTISTA, Dr. Berry Other Provider Mark BAUTISTA, Dr. Rodgers Other Provider Rosalio BAUTISTA, Dr. Nair Other Provider Unavailabl carroll Almaraz MD, Dr. Urbina Other Provider [phone] Nathaly BAUTISTA, Dr. Lopes Other Provider [phone] Joanna BAUTISTA, Dr. Canales Other Provider Dez BAUTISTA, Dr. Burrell Other Provider Emelina TAYLOR, Dr. Villaseñor Other Provider Jacklyn BAUTISTA, Dr. Hoffman Other Provider [phone] Jannette BAUTISTA, Dr. Bergman Other Provider [phone] Maria Esther TAYLOR, Dr. Santillan Other Provider El BAUTISTA, Dr. Cochran Other Provider Ahmet BAUTISTA, Dr. May Other Provider Dr. Chris Medina DO Referring Provider Dr. Benito Malcolm DO Attending Provider Hong BAUTISTA, Dr. Moncada Referring Provider Rose Pitts MD, Dr. Moncada Attending Provider Rose Hong MD, Dr. Evelio Robin Other Provider Michael BAUTISTA, Dr. Miller Attending Provider [phone] Michael BAUTISTA, Dr. Miller Referring Provider Aung TAYLOR, Dr. Cuadra Emergency Provider Alfredo BAUTISTA, Dr. Sayra Augustin Attending Provider Job BAUTISTA, Dr. Benitez Other Provider Job BAUTISTA, Dr. Benitez Attending Provider Michael BAUTISTA, Dr. Miller Referring Provider Dick TAYLOR, Dr. James Primary Care Provider [phone] Dick TAYLOR, Dr. James Referring Provider Reyes TAYLOR, Dr. Rodriguez Attending Provider Alfredo BAUTISTA, Dr. Sayra Augustin Referring Provider Michael BAUTISTA, Dr. Miller Referring Provider Dick TAYLOR, Dr. James Primary Care Provider Alfredo BAUTISTA, Dr. Sayra Augustin Admit [...] BAUTISTA, Dr. Evelio Robin Other Provider Dori DIAMOND GRINDER-C, Verónica Attending Provider Michael BAUTISTA, Dr. Miller Referring Provider Dick TAYLOR, Dr. James Primary Care Provider Dick TAYLOR, Dr. James Referring Provider Michael BAUTISTA, Dr. Miller Attending Provider Uzair DIAMOND GRINDER-C, Monalisa Attending Provider Dick TAYLOR, Dr. James Primary Care Provider [phone] Dick TAYLOR, Dr. James Referring Provider Reyes TAYLOR, Dr. Rodriguez Attending Provider Michael BAUTISTA, Dr. Miller Attending Provider Hal BAUTISTA, Dr. Evelio Robin Attending Provider Hal BAUTISTA, Dr. Evelio Robin Other Provider Uzair ANTOINE-C, Monalisa Attending Provider Michael BAUTISTA, Dr. Miller Referring Provider Dick TAYLOR, Dr. James Primary Care Provider Dick TAYLOR, Dr. James Referring Provider [phone] Reyes TAYLOR, Dr. Rodriguez Attending Provider Michael BAUTISTA, Dr. Miller Referring Provider Dick TAYLOR, Dr. James Primary Care Provider Dick TAYLOR, Dr. James Referring Provider Reyes TAYLOR, Dr. Rodriguez Attending Provider Michael BAUTISTA, Dr. Miller Referring Provider Dick TAYLOR, Dr. James Primary Care Physician Dick TAYLOR, Dr. James Referring Provider [phone] Dori DIAMOND GRINDER-C, Verónica Attending Physician Reyes TAYLOR, Dr. Rodriguez Attending Physician Michael BAUTISTA, Dr. Miller Attending Physician [phone] Uzair DIAMOND GRINDER-C, Monalisa Attending Physician Dick TAYLOR, Dr. James Primary Care Physician Dick TAYLOR, Dr. James Referring Provider Dori DIAMOND GRINDER-C, Verón[place] Attending Physician Reyes TAYLOR, Dr. Rodriguez Attending Physician Jaime BAUTISTA, Dr. Neumann Attending Physician Dick TAYLOR, Dr. James Primary Care Physician Dick TAYLOR, Dr. James Referring Provider [phone] Michael BAUTISTA, Dr. Miller Attending Physician FEGATELLI, KESHA Referring Unavailable [facility], [facility] Primary Care Unavail able FEGATELLI, KESHA Referring Unavailable [facility], [facility] Primary Care Unavail able KHAYYAT, FRANCOIS F Referring Unavailable [facility], [facility] Primary Care Unavail able KHAYYAT, FRANCOIS F Referring Unavailable PET[facility]LL[facility], [facility] Primary Care Unavail able FEGATELLI, KESHA Referring Unavailable PET[facility]LL[facility], [facility] Primary Care Unavail able FEGATELLI, KESHA Referring Unavailable PET[facility]LL[facility], [facility] Primary Care Unavail able KHAYYAT, FRANCOIS F Attending Unavailable FEGATELLI, KESHA Referring Unavailable PET[facility]LL[facility], [facility] Primary Care Unavail able KHAYYAT, FRANCOIS F Attending Unavailable KHAYYAT, FRANCOIS F Referring Unavailable PET[facility]LLA, [facility] Primary Care Unavail able KHAYYAT, FRANCOIS F Attending Unavailable FEGATELLI, KESHA Referring Unavailable PETRILLA, [facility] Primary Care Unavail able Petrilla DO, Dr. James Primary Care Physician Dick TAYLOR, Dr. James Referring Provider Michael BAUTISTA, Dr. Miller Attending Physician Uzair DIAMOND GRINDER-C, Monalisa Attending Physician Dori DIAMOND GRINDER-C, Verónica Attending Physician Reyes TAYLOR, Dr. Rodriguez [...] Care Unavailable Petrilla, Jacob Referring Unavailable Dori DIAMOND GRINDER, Verónica Attending Unavailable Dori DIAMOND GRINDER, Verónica Attending Unavailable Petrilla, Jacob Primary Care [...] Attending Unavailable Petrilla, Jacob Referring Unavailable Dori DIAMOND GRINDER, Verónica Attending Unavailable Petrilla, Jacob Primary Care Unavailable Petrilla, Jacob Referring Unavailable Petrilla, Jacob Referring Unavailable Greg Sutherland Attending Unavailable Petrilla, Jacob Primary Care Unavailable Dori DIAMOND GRINDER, Verónica Attending Unavailable Petrilla, Jacob Primary Care [...] Consulting Unavailable Job, Emmanuel Consulting Unavailable Dori DIAMOND GRINDER, Verónica Attending Unavailable Petrilla, Jacob Primary Care Unavailable Petrilla, Jacob Referring Unavailable Dori DIAMOND GRINDER, Verónica Attending Unavailable Petrilla, Jacob Primary Care [...] Fuentes Referring Unavailable Evelio Hong Attending Unavailable Evelio Hong Consulting Unavailable Benito Malcolm Attending Unavailable [...] Care Unavailable Petrilla, Jacob Referring Unavailable Dori DIAMOND GRINDER, Verónica Attending Unavailable Petrilla, Jacob Primary Care [...] Referring Unavailable Thien Sandoval Attending Unavailable Dori DIAMOND GRINDERVerónica Attending Unavailable Petrilla, Jacob Primary Care Unavailable Petrilla, Jacob Referring Unavailable Angela Rodriguez Attending Unavailable Petrilla, Jacob Primary Care Unavailable Petrilla, Jacob Referring Unavailable Petrilla, Jacob Primary Care Unavailable Petrilla, Jacob Referring Unavailable Uzair DIAMOND GRINDER, Monalisa Attending Unavailable Anamikalla DO, Jacob F Primary Care Provider [phone] Mamie BAUTISTA, Eleuterio Paulino Primary Care Provider [...] sources) Wheat gluten extract Drug Allergy 08-24-2025 [facility] (1 source) Gluten Drug allergy (disorder) 09-06-2025 [facility] Repository (4 sources) Gluten Allergy to substance 08-24-2025 [facility] Medications Current Medications Medication Drug Class(es) Dates [...] 03-12-2021 enoxaparin (LO VENOX) injection 40 mg Zozvgfrohog-Hkvrxyytg-Quqdiw er (10 sources) Anticholinergic, Corticosteroid, beta2-Adrenergic Agonist Start: 06-09-2025 Fvamurpbnqz-Gizvtiruy-Gokohh er (Trelegy Ellipta) 100-62.5-25 mcg blister with [...] 03-12-2021 acetaminophen (TYLENOL) tabl et 1,000 mg [id number] 200 actuat albuterol 0.09 mg/actuat metered dose [...] extended release oral tablet (20 sources) Uncompetitive W-pkqbtm-R-aspartate Receptor Antagonist, Sigma-1 Agonist Start: 11-21-2022 End: 12-16-2022 Start: 11-21-2022 End: 12-16-2022 Dextromethorphan-Guaifenesin (Mucinex Dm) 30-600 mg Tablet Extended Release 12 Hr Discontinued 2 {tbl} PO TWICE A DAY 14 7 November 21, 2022 1:00am December 16, 2022 10:45am Start: 11-21-2022 End: 12-16-2022 docusate sodium 50 mg / carlton osides, [facility] 8.6 mg oral tablet (19 sources) Start: [...] Start: 04-09-2021 take 1 capsule by mo [facility] twice daily gabapentin (NEURONTIN) 300 MG capsule [...] in sodium chloride 0.9 % 30 mL CALENDER LET OFF OPERATOR (1 source) Start: 03-12-2021 End: 03-14-2021 HYDROmorphone (DILAUDID) 30 mg in sodium chloride 0.9 % 30 mL CALENDER LET OFF OPERATOR ipratropium bromide 0.2 mg/ml inhalation solution (9 sources) Anticholinergic Start: 11-24-2022 End: 06-09-2023 ipratropium (ATROVENT) 0.02 % nebulizer solution Inhale 0.2 mg as instructed as needed. 0 11/24/2022 06/09/2023 Discontinued (Course of therapy completed) Start: 11-24-2022 take 0.5 mg by inhal ation every four hours Ipratropium [place] Active 0.5 MG INHALATION Q4H 150 November [...] of each other unless specifically ordered. nystatin [id number] unt/ml oral suspension (5 sources) Polyene Antifungal Start: 01-20-2025 End: 03-21-2025 take 5 mL by mouth four times daily nystatin (Mycostatin) 831963 UNIT/ML suspension Take 5 mL (500,000 Units) [...] Comment on above: Take 1 tablet by [facility] every 12 hours 6am/6pm. Pembrolizumab 50 mg recon soln (6 sources) Start: 03-01-2024 End: 12-14-2024 Pembrolizumab 50 mg recon soln Discontinued 200 mg .ROUTE .COMPLEX March 01, 2024 12:00am December 14, 2024 10:01pm 200 mg ONCE Q 3 WEEK; 200 mg once every 3 weeks polyethylene glycol 3350 63744 mg powder for oral solution (20 sources) [...] with frequent/long duration piggyback infusions, Starting on [facility] 05/16/21 at 2002 Administer at the same [...] Coronary arteriosclerosis; 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: [Atherosclerotic heart disease of [place] coronary artery without angina pectoris] Onset: 07-10-2003 05-27-2015 Chronic Coronary atherosclerosis and other heart disease (20 sources) Past history of procedure; 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: [Coronary angioplasty status] Onset: 07-17-2003 Episodic Comment on above: KDE-DHSB-RED LACE PINNER-OM1 01/05/2004 Deficiency and other anemia (20 sources) [...] aftercare (20 sources) Patient encounter status; 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: [supervisor intermediates (current) use of non-steroidal anti-inflammatories (NSAID)] Onset: [...] Comment on above: XRT 10/28/22 SBRT at [facility] 2022 Secondary malignancies (20 sources) Secondary malignant [...] 5 12-30-2024 Episodic Other aftercare (20 sources) supervisor intermediates current use of non-steroidal anti-inflammatory drug; 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: [supervisor intermediates (current) use of non-steroidal anti-inflammatories (NSAID)] Onset: [...] Long-term current use of drug therapy; 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: [skilled nursing (current) use of other immunomodulators and 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] Viral infection (20 sources) Disease caused by 2019-nCoV; 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: [COVID-19] Onset: 2 Resolved: 4 08-23-2022 Episodic Results Test Name Value Interpretation Reference Range Facility 29on 09-14-2025 29 Addended by: SARA MONTEJO on: 09/15/2025 09:32 AM Modules accepted: Orders [facility] Progress Noteon 09-14-2025 Progress Note [...] elevated Future Appointments Date Time Provider Department [place] 09/14/2025 11:30 AM SCHEDULE [facility] 04/19/2026 10:20 AM Celsa Jacobs APRN - SALES SERVICE COORDINATOR [facility] Cc'd provider blood pressure readings? Yes Normal [facility] Progress Note Rx sent for chlorthalidone 25 mg by mouth once daily to the [facility] in [place]. Follow-up as scheduled on 09/29/2025 for repeat blood pressure check. Normal [facility] Progress Note Spoke with patient gloria shaffer is agreeable to starting chlorthalidone 25 mg daily, verified patients pharmacy [facility]. Patient scheduled for b/p nurse visit in 2 weeks. Normal [facility] Progress Note Blood's pressure is still a little high I would recommend adding chlorthalidone 25 mg daily and recheck blood pressure in 1 to 2 weeks. Normal [facility] Office Visiton 09-07-2025 Follow-up visit [id number] Mirna Arshad 1955 M Date Provider Department Center 09/07/2025 [id number]-HUFBIFELEUTERIO [facility] Family History Problem Relation Age of Onset Coronary artery disease Mother 65 Comments: CABG Stroke Mother Comments: age 77 Lung cancer Mother Coronary artery disease Father Comments: age 50 [place] - smoker Coronary artery disease Sister Comments: CABG Diabetes Sister Comments: alive age 64 No Known Problems Sister No Known Problems Sister No Known Problems Sister No Known Problems Brother Coronary artery disease Brother Comments: age 47 [place] Family Status - Relation Status Age at Mother 77 Father 50 Sister Alive Sister Alive Sister Alive Sister Alive Brother Alive Brother 47 Level of Service:15710 DE OFFICE/OUTPATIENT ESTABLISHED MOD MDM 30 MIN Reason for Visit and Comments: New Patient [542] - New to provider Medication Check [[id number]] - Pt states he is no diabetic Establish Care [42] - Pt has multiple cancer- had immunotherapy treatment yesterday Normal [facility] Progress Noteon 09-07-2025 Progress Note Controlled, continue rosuvastatin [address] [facility] Progress Note Currently stable he is taking Keytruda IV every 21 days Normal [facility] Progress Note PSA is borderline, w ill recheck his level today since has been a year and a half since it was checked Normal [facility] Progress Note Stable, avoid gluten Normal [facility] Progress Note Blood pressure was initially elevated, recheck was still elevated will have him follow-up in 1 week for blood pressure check continue amlodipine 10 mg daily carvedilol 25 mg twice a day, hydralazine 50 mg twice a day [facility] Progress Note Stable, being follow ed by cardiology [facility] Progress Note Stable, he has DuoNe b solution for his nebulizer and is a former smoker. [facility] Progress Note Martha thomas Nisha [...] patient although he is not new to [facility] He has all host of problems which [...] Eleuterio Hatch MD 09/07/2025 3:30 PM Normal [facility] Progress Note Patient verified by last name and date of . Normal [facility] CBC W/Diff, Automatedon 10-2 Absolute Lymph 1.00 X10 3/uL Normal 0.83-4.51 [facility] Comment on above: Performed By: #### L 100.0100, L501.2300, L500.4050 ####[facility] [address] [place], [address] Absolute Neut 3.7 X10 3/uL Normal 2.0-7.7 [facility] Comment on above: Performed By: #### L 100.0100, L501.2300, L500.4050 ####[facility] [address] [place], [address] Basophils/100 WBC (Bld) 0.9 % Normal 0-1 [facility] Comment on above: Performed By: #### L 100.0100, L501.2300, L500.4050 ####[facility] [address] [place], [address] Eosinophils/100 WBC (Bld) 1.8 % Normal 0-5 [facility] Comment on above: Performed By: #### L 100.0100, L501.2300, L500.4050 ####[facility] [address] [place], [address] Erythrocyte distribution width (RBC) [Ratio] 17.2 % High 11.6-14.6 [facility] Comment on above: Performed By: #### L 100.0100, L501.2300, L500.4050 ####[facility] [address] [place], [address] Hematocrit (Bld) [Volume fraction] 33.9 % Low 40-54 [facility] Comment on above: Performed By: #### L 100.0100, L501.2300, L500.4050 ####[facility] [address] [place], [address] Hemoglobin (Bld) [Mass/Vol] 10.8 g/dL Low 13.0-16.5 [facility] Comment on above: Performed By: #### L 100.0100, L501.2300, L500.4050 ####[facility] [address] [place], [address] IG% 1.600 High 0.0-0.9 [facility] Comment on above: Result Comment: IG% - Immature Granulocytes (promyelocytes, myelocytes andmetamyelocytes) > 1% indicates that a LEFT SHIFT is Present. Performed By: #### L 100.0100, L501.2300, L500.4050 ####[facility] [address] [place], [address] Lymphocytes/100 WBC (Bld) 17.7 % Low 19-41 [facility] Comment on above: Performed By: #### L 100.0100, L501.2300, L500.4050 ####[facility] [address] [place], [address] MCH (RBC) [Entitic mass] 24.2 pg Low 27.0-32.0 [facility] Comment on above: Performed By: #### L 100.0100, L501.2300, L500.4050 ####[facility] [address] [place], [address] MCHC (RBC) [Mass/Vol] 31.9 g/dL Low 32-36 [facility] Comment on above: Performed By: #### L 100.0100, L501.2300, L500.4050 ####[facility] [address] [place], [address] MCV (RBC) [Entitic vol] 75.8 fL Low 80-94 [facility] Comment on above: Performed By: #### L 100.0100, L501.2300, L500.4050 ####[facility] [address] [place], [address] Monocytes/100 WBC (Bld) 12.9 % High 0-10 [facility] Comment on above: Performed By: #### L 100.0100, L501.2300, L500.4050 ####[facility] [address] [place], [address] Neutrophils/100 WBC (Bld) 65.1 % Normal 47-70 [facility] Comment on above: Performed By: #### L 100.0100, L501.2300, L500.4050 ####[facility] [address] [place], [address] Nucleated RBC (Bld) [#/Vol] 0 10*3/uL Normal 0-5 [facility] Comment on above: Performed By: #### L 100.0100, L501.2300, L500.4050 ####[facility] [address] [place], [address] Platelet mean volume (Bld) [Entitic vol] 9.0 fL Normal 6.2-12.0 [facility] Comment on above: Performed By: #### L 100.0100, L501.2300, L500.4050 ####[facility] [address] [place], [address] Platelets (Bld) [#/Vol] 166 10*3/uL Normal 150-450 [facility] Comment on above: Performed By: #### L 100.0100, L501.2300, L500.4050 ####[facility] [address] [place], [address] RBC (Bld) [#/Vol] 4.47 10*6/uL Low 4.6-6.2 [facility] Comment on above: Performed By: #### L 100.0100, L501.2300, L500.4050 ####[facility] [address] [place], [address] RDW SD 46.5 fl High 35.1-43.9 [facility] Comment on above: Performed By: #### L 100.0100, L501.2300, L500.4050 ####[facility] [address] [place], [address] WBC (Bld) [#/Vol] 5.6 10*3/uL Normal 4.4-11.0 [facility] Comment on above: Performed By: #### L 100.0100, L501.2300, L500.4050 ####[facility] [address] [place], [address] Comprehensive Metabolic Prof [facility] 09-06-2025 Albumin [Mass/Vol] 3.8 g/dL Normal 3.4-4.8 [facility] Comment on above: Performed By: #### L 100.0100, L501.2300, L500.4050 ####[facility] [address] [place], [address] Albumin/Globulin [Mass ratio] 1.7 {ratio} Normal 0.9-2.4 [facility] Comment on above: Performed By: #### L 100.0100, L501.2300, L500.4050 ####[facility] [address] [place], [address] ALK PHOS 57 U/L Normal 40-129 [facility] Comment on above: Performed By: #### L 100.0100, L501.2300, L500.4050 ####[facility] [address] [place], [address] ALT [Catalytic activity/Vol] 14 U/L Normal <=46 [facility] Comment on above: Performed By: #### L 100.0100, L501.2300, L500.4050 ####[facility] [address] [place], [address] AST [Catalytic activity/Vol] 15 U/L Normal <=37 [facility] Comment on above: Performed By: #### L 100.0100, L501.2300, L500.4050 ####[facility] [address] [place], [address] Bilirubin [Mass/Vol] 0.43 mg/dL Normal 0.00-1.30 [facility] Comment on above: Performed By: #### L 100.0100, L501.2300, L500.4050 ####[facility] [address] [place], [address] BUN/CRE 18.9 RATIO Normal 10-20 [facility] Comment on above: Performed By: #### L 100.0100, L501.2300, L500.4050 ####[facility] [address] [place], [address] Calcium [Mass/Vol] 8.9 mg/dL Normal 7.6-11.0 [facility] Comment on above: Performed By: #### L 100.0100, L501.2300, L500.4050 ####[facility] [address] [place], [address] Chloride [Moles/Vol] 107 mmol/L Normal 98-108 [facility] Comment on above: Performed By: #### L 100.0100, L501.2300, L500.4050 ####[facility] [address] [place], [address] CO2 [Moles/Vol] 20.4 mmol/L Low 21.0-32.0 [facility] Comment on above: Performed By: #### L 100.0100, L501.2300, L500.4050 ####[facility] [address] [place], [address] Creatinine [Mass/Vol] 1.08 mg/dL Normal 0.70-1.20 [facility] Comment on above: Performed By: #### L 100.0100, L501.2300, L500.4050 ####[facility] [address] [place], [address] ECRCL 62.11 ml/min Normal 50-250 [facility] Comment on above: Performed By: #### L 100.0100, L501.2300, L500.4050 ####[facility] [address] [place], [address] GAP 11 Normal 5-15 [facility] Comment on above: Performed By: #### L 100.0100, L501.2300, L500.4050 ####[facility] [address] [place], [address] GFR/1.73 sq M.predicted among non-blacks MDRD (S/P/Bld) [Vol rate/Area] 73 mL/min/{1.73_m2} Normal >60 [facility] Comment on above: Result Comment: mL/m in/1.73m2 CKD-EPI Creatinine Equation (2020) Performed By: #### L 100.0100, L501.2300, L500.4050 ####[facility] [address] [place], [address] Globulin (S) [Mass/Vol] 2.2 g/dL Normal 2.2-4.2 [facility] Comment on above: Performed By: #### L 100.0100, L501.2300, L500.4050 ####[facility] [address] [place], [address] Glucose [Mass/Vol] 96 mg/dL Normal 70-99 [facility] Comment on above: Performed By: #### L 100.0100, L501.2300, L500.4050 ####[facility] [address] [place], [address] Potassium [Moles/Vol] 3.8 mmol/L Normal 3.3-5.1 [facility] Comment on above: Performed By: #### L 100.0100, L501.2300, L500.4050 ####[facility] [address] [place], [address] Sodium [Moles/Vol] 138 mmol/L Normal 133-145 [facility] Comment on above: Performed By: #### L 100.0100, L501.2300, L500.4050 ####[facility] [address] [place], [address] T PROT 6.0 g/dL Normal 5.9-8.4 [facility] Comment on above: Performed By: #### L 100.0100, L501.2300, L500.4050 ####[facility] [address] [place], [address] Urea nitrogen [Mass/Vol] 20 mg/dL High 4-19 [facility] Comment on above: Performed By: #### L 100.0100, L501.2300, L500.4050 ####[facility] [address] [place], [address] Ferritinon 09-06-2025 Ferritin [Mass/Vol] 117 ng/mL Normal 37-417 [facility] Comment on above: Performed By: #### L 503.6030, L501.9520, L503.6550 ####[facility] [address] [place], [address] Iron+Iron Binding Capacityon 09-06-2025 Iron [Mass/Vol] 40 ug/dL Low 65-175 [facility] Comment on above: Performed By: #### L 503.6030, L501.9520, L503.6550 ####[facility] [address] [place], [address] IRON SATURATION 13.2 Normal 9-55 [facility] Comment on above: Performed By: #### L 503.6030, L501.9520, L503.6550 ####[facility] [address] [place], [address] TIBC 299 ug/dL Normal 250-450 [facility] Comment on above: Performed By: #### L 503.6030, L501.9520, L503.6550 ####[facility] [address] [place], [address] UIBC 259 ug/dL Normal 228-428 [facility] Comment on above: Performed By: #### L 503.6030, L501.9520, L503.6550 ####[facility] [address] [place], [address] Oncology Visit Reporton 08-10 Oncology Visit Report Normal [facility] Phosphoruson 09-06-2025 Phosphate [Mass/Vol] 3.4 mg/dL Normal 2.7-4.5 [facility] Comment on above: Performed By: #### L 100.0100, L501.2300, L500.4050 ####[facility] [address] [place], [address] Thyroid Stim Hormone (TSH)on 09-06-2025 TSH 3.210 uIU/mL Normal 0.300-4.200 [facility] Comment on above: Performed By: #### L 503.6030, L501.9520, L503.6550 ####[facility] [address] [place], [address] Samra 08-31-2025 THANHN Telephone (NEAGCLM) ----- KENN ARSHAD SR. ([id number]) 1955 M Date Time Provider Department 08/31/25 [...] edited. Kesha Dey APRN-THANH Neurosurgery Nurse Practitioner [facility] 4:25 PM 08/31/2025 Allergies As of Date: [...] Encounter Status:Closed by KESHA DEY on 08/31/25 [facility] 08-30-2025 ARASH Telephone ([facility]AGCLM) ----- KENN ARSHAD SR. ([id number]) 1955 M Date Time Provider Department 08/30/25 [...] recent MRI which was edited. Kesha Dey APRN-[facility] Neurosurgery Nurse Practitioner [facility] Jasen Porras 9:03 AM 08/30/2025 Allergies As [...] Encounter Status:Closed by KESHA DEY on 08/30/25 [facility] CNOVon 08-29-2025 CNOV Office Visit (NEAGCL M) ----- ARSHAD,LARRY Linda SR. ([id number]) 1955 M Date Time Provider Department 08/29/25 [...] Age: [age] year old Sex: male MRN/E# [id number] Last Office Visit: 05/23/2025 CHIEF COMPLAINT: Patient [...] SRS (SBRT) to the metastatic lesion at [place]. Two months following treatment MRI was completed [...] URI iss (more content not included)... Normal [facility] Basic Metabolic Profile (BMP )on 08-24-2025 BUN Normal -19 [facility] Comment on above: Result Comment: Canc elled via OM: Order cancelled - Patient discharged Performed By: #### L 500.2500, L100.0100 ####[facility] [address] [facility] [address] BUN/CRE Normal 10-20 [facility] Comment on above: Result Comment: Canc elled via OM: Order cancelled - Patient discharged Performed By: #### L 500.2500, L100.0100 ####[facility] [address] [facility] [address] Calcium Normal 7.6-11.0 [facility] Comment on above: Result Comment: Canc elled via OM: Order cancelled - Patient discharged Performed By: #### L 500.2500, L100.0100 ####[facility] [address] [place], [address] CL Normal 98-108 [facility] Comment on above: Result Comment: Canc elled via OM: Order cancelled - Patient discharged Performed By: #### L 500.2500, L100.0100 ####[facility] [address] [place], [address] CO2 Normal 21.0-32.0 [facility] Comment on above: Result Comment: Canc elled via OM: Order cancelled - Patient discharged Performed By: #### L 500.2500, L100.0100 ####[facility] [address] [place], [address] CREAT,SERUM Normal 0.70-1.20 [facility] Comment on above: Result Comment: Canc elled via OM: Order cancelled - Patient discharged Performed By: #### L 500.2500, L100.0100 ####[facility] [address] [place], [address] eGFR Normal >60 [facility] Comment on above: Result Comment: Canc elled via OM: Order cancelled - Patient discharged Performed By: #### L 500.2500, L100.0100 ####[facility] [address] [place], [address] GAP Normal 5-15 [facility] Comment on above: Result Comment: Canc elled via OM: Order cancelled - Patient discharged Performed By: #### L 500.2500, L100.0100 ####[facility] [address] [place], [address] GLU Normal 70-99 [facility] Comment on above: Result Comment: Canc elled via OM: Order cancelled - Patient discharged Performed By: #### L 500.2500, L100.0100 ####[facility] [address] [place], [address] Potassium Normal 3.3-5.1 [facility] Comment on above: Result Comment: Canc elled via OM: Order cancelled - Patient discharged Performed By: #### L 500.2500, L100.0100 ####[facility] [address] [place], [address] Basic Metabolic Profile (BMP) Normal 133-145 [facility] Comment on above: Result Comment: Canc elled via OM: Order cancelled - Patient discharged Performed By: #### L 500.2500, L100.0100 ####[facility] [address] [place], [address] CBC W/Diff, Automatedon 10- Absolute Neut Normal 2.0-7.7 [facility] Comment on above: Result Comment: Canc elled via OM: Order cancelled - Patient discharged Performed By: #### L 500.2500, L100.0100 ####[facility] [address] [place], [address] HCT Normal 40-54 [facility] Comment on above: Result Comment: Canc elled via OM: Order cancelled - Patient discharged Performed By: #### L 500.2500, L100.0100 ####[facility] [address] [place], [address] HGB Normal 13.0-16.5 [facility] Comment on above: Result Comment: Canc elled via OM: Order cancelled - Patient discharged Performed By: #### L 500.2500, L100.0100 ####[facility] [address] [place], [address] MCH Normal 27.0-32.0 [facility] Comment on above: Result Comment: Canc elled via OM: Order cancelled - Patient discharged Performed By: #### L 500.2500, L100.0100 ####[facility] [address] [place], [address] MCHC Normal 32-36 [facility] Comment on above: Result Comment: Canc elled via OM: Order cancelled - Patient discharged Performed By: #### L 500.2500, L100.0100 ####[facility] [address] [place], [address] MCV Normal 80-94 [facility] Comment on above: Result Comment: Canc elled via OM: Order cancelled - Patient discharged Performed By: #### L 500.2500, L100.0100 ####[facility] [address] [place], [address] NEUT% Normal 47-70 [facility] Comment on above: Result Comment: Canc elled via OM: Order cancelled - Patient discharged Performed By: #### L 500.2500, L100.0100 ####[facility] [address] [place], [address] PLT Normal 150-450 [facility] Comment on above: Result Comment: Canc elled via OM: Order cancelled - Patient discharged Performed By: #### L 500.2500, L100.0100 ####[facility] [address] [place], [address] RBC Normal 4.6-6.2 [facility] Comment on above: Result Comment: Canc elled via OM: Order cancelled - Patient discharged Performed By: #### L 500.2500, L100.0100 ####[facility] [address] [place], [address] RDW CV Normal 11.6-14.6 [facility] Comment on above: Result Comment: Canc elled via OM: Order cancelled - Patient discharged Performed By: #### L 500.2500, L100.0100 ####[facility] [address] [place], [address] RDW SD Normal 35.1-43.9 [facility] Comment on above: Result Comment: Canc elled via OM: Order cancelled - Patient discharged Performed By: #### L 500.2500, L100.0100 ####[facility] [address] [place], [address] WBC Normal 4.4-11.0 [facility] Comment on above: Result Comment: Canc elled via OM: Order cancelled - Patient discharged Performed By: #### L 500.2500, L100.0100 ####[facility] [address] [place], [address] Plastic Surgery Visit Report on 08-24-2025 Plastic Surgery Visit Report Normal [facility] Basic Metabolic Profile (BMP )on 08-23-2025 BUN Normal 4-19 [facility] Comment on above: Result Comment: Canc elled via OM: Order cancelled - Patient discharged Performed By: #### L 100.0100, L500.2500 ####[facility] [address] [place], [address] BUN/CRE Normal 10- [facility] Comment on above: Result Comment: Canc elled via OM: Order cancelled - Patient discharged Performed By: #### L 100.0100, L500.2500 ####[facility] [address] [place], [address] Calcium Normal 7.6-11.0 [facility] Comment on above: Result Comment: Canc elled via OM: Order cancelled - Patient discharged Performed By: #### L 100.0100, L500.2500 ####[facility] [address] [place], [address] CL Normal 98-108 [facility] Comment on above: Result Comment: Canc elled via OM: Order cancelled - Patient discharged Performed By: #### L 100.0100, L500.2500 ####[facility] [address] [place], [address] CO2 Normal 21.0-32.0 [facility] Comment on above: Result Comment: Canc elled via OM: Order cancelled - Patient discharged Performed By: #### L 100.0100, L500.2500 ####[facility] [address] [place], [address] CREAT,SERUM Normal 0.70-1.20 [facility] Comment on above: Result Comment: Canc elled via OM: Order cancelled - Patient discharged Performed By: #### L 100.0100, L500.2500 ####[facility] [address] [place], [address] eGFR Normal >60 [facility] Comment on above: Result Comment: Canc elled via OM: Order cancelled - Patient discharged Performed By: #### L 100.0100, L500.2500 ####[facility] [address] [place], [address] GAP Normal 5-15 [facility] Comment on above: Result Comment: Canc elled via OM: Order cancelled - Patient discharged Performed By: #### L 100.0100, L500.2500 ####[facility] [address] [place], [address] GLU Normal 70-99 [facility] Comment on above: Result Comment: Canc elled via OM: Order cancelled - Patient discharged Performed By: #### L 100.0100, L500.2500 ####[facility] [address] [place], [address] Potassium Normal 3.3-5.1 [facility] Comment on above: Result Comment: Canc elled via OM: Order cancelled - Patient discharged Performed By: #### L 100.0100, L500.2500 ####[facility] [address] [place], [address] Basic Metabolic Profile (BMP) Normal 133-145 [facility] Comment on above: Result Comment: Canc elled via OM: Order cancelled - Patient discharged Performed By: #### L 100.0100, L500.2500 ####[facility] [address] [place], [address] CBC W/Diff, Automatedon 10-1 Absolute Neut Normal 2.0-7.7 [facility] Comment on above: Result Comment: Canc elled via OM: Order cancelled - Patient discharged Performed By: #### L 100.0100, L500.2500 ####[facility] [address] [place], [address] HCT Normal 40-54 [facility] Comment on above: Result Comment: Canc elled via OM: Order cancelled - Patient discharged Performed By: #### L 100.0100, L500.2500 ####[facility] [address] [place], [address] HGB Normal 13.0-16.5 [facility] Comment on above: Result Comment: Canc elled via OM: Order cancelled - Patient discharged Performed By: #### L 100.0100, L500.2500 ####[facility] [address] [place], [address] MCH Normal 27.0-32.0 [facility] Comment on above: Result Comment: Canc elled via OM: Order cancelled - Patient discharged Performed By: #### L 100.0100, L500.2500 ####[facility] [address] [place], [address] MCHC Normal 32-36 [facility] Comment on above: Result Comment: Canc elled via OM: Order cancelled - Patient discharged Performed By: #### L 100.0100, L500.2500 ####[facility] [address] [place], [address] MCV Normal 80-94 [facility] Comment on above: Result Comment: Canc elled via OM: Order cancelled - Patient discharged Performed By: #### L 100.0100, L500.2500 ####[facility] [address] [place], [address] NEUT% Normal 47-70 [facility] Comment on above: Result Comment: Canc elled via OM: Order cancelled - Patient discharged Performed By: #### L 100.0100, L500.2500 ####[facility] [address] [place], [address] PLT Normal 150-450 [facility] Comment on above: Result Comment: Canc elled via OM: Order cancelled - Patient discharged Performed By: #### L 100.0100, L500.2500 ####[facility] [address] [place], [address] RBC Normal 4.6-6.2 [facility] Comment on above: Result Comment: Canc elled via OM: Order cancelled - Patient discharged Performed By: #### L 100.0100, L500.2500 ####[facility] [address] [place], [address] RDW CV Normal 11.6-14.6 [facility] Comment on above: Result Comment: Canc elled via OM: Order cancelled - Patient discharged Performed By: #### L 100.0100, L500.2500 ####[facility] [address] [place], [address] RDW SD Normal 35.1-43.9 [facility] Comment on above: Result Comment: Canc elled via OM: Order cancelled - Patient discharged Performed By: #### L 100.0100, L500.2500 ####[facility] [address] [place], [address] WBC Normal 4.4-11.0 [facility] Comment on above: Result Comment: Canc elled via OM: Order cancelled - Patient discharged Performed By: #### L 100.0100, L500.2500 ####[facility] [address] [place], [address] Absolute lymphocyte countOrd ered By: Antwan Pitts on 08-22-2025 Lymphocytes Auto (Unsp spec) [#/Vol] 0.72 10*3/uL Low 0.83-4.51 [facility] Anion gap in Serum or Plasma Ordered By: Antwan Pitts on 08-22-2025 Anion gap [Moles/Vol] 11 mmol/L 5-15 [facility] Automated blood erythrocyte countOrdered By: Antwan Pitts on 08-22-2025 RBC (Bld) [#/Vol] 4.36 10*6/uL Low 4.6-6.2 [facility] Comment on above: Performed By: #### L 501.5200, L100.0100, L501.2300, L500.2500 ####[facility] [address] [place], [address] Automated blood hematocrit ( percentage)Ordered By: Antwan Pitts on 08-22-2025 Hematocrit (Bld) [Volume fraction] 32.8 % Low 40-54 [facility] Comment on above: Performed By: #### L 501.5200, L100.0100, L501.2300, L500.2500 ####[facility] [address] [place], [place], [address] Automated lymphocyte count a s percentage of total leukocytesOrdered By: Antwan Pitts on 08-22-2025 Lymphocytes/100 WBC Auto (Unsp spec) 10.9 % Low 19-41 [facility] BUN/creatinine ratioOrdered By: Antwan Pitts on 08-22-2025 Urea nitrogen/Creatinine [Mass ratio] 22.1 mg/mg High 08-28 [facility] Basic Metabolic Profile (BMP )on 08-22-2025 BUN/CRE 22.1 RATIO High 08-28 [facility] Comment on above: Performed By: #### L 501.5200, L100.0100, L501.2300, L500.2500 ####[facility] [address] [place], [address] Calcium [Mass/Vol] 8.4 mg/dL Normal 7.6-11.0 [facility] Comment on above: Performed By: #### L 501.5200, L100.0100, L501.2300, L500.2500 ####[facility] [address] [place], [address] Chloride [Moles/Vol] 108 mmol/L Normal 98-108 [facility] Comment on above: Performed By: #### L 501.5200, L100.0100, L501.2300, L500.2500 ####[facility] [address] [place], [address] CO2 [Moles/Vol] 20.2 mmol/L Low 21.0-32.0 [facility] Comment on above: Performed By: #### L 501.5200, L100.0100, L501.2300, L500.2500 ####[facility] [address] [place], [address] Creatinine [Mass/Vol] 0.79 mg/dL Normal 0.70-1.20 [facility] Comment on above: Performed By: #### L 501.5200, L100.0100, L501.2300, L500.2500 ####[facility] [address] [place], [address] ECRCL 83.35 ml/min Normal 50-250 [facility] Comment on above: Performed By: #### L 501.5200, L100.0100, L501.2300, L500.2500 ####[facility] [address] [place], [address] GAP 11 Normal 5-15 [facility] Comment on above: Performed By: #### L 501.5200, L100.0100, L501.2300, L500.2500 ####[facility] [address] [place], [address] GFR/1.73 sq M.predicted among non-blacks MDRD (S/P/Bld) [Vol rate/Area] 95 mL/min/{1.73_m2} Normal >60 [facility] Comment on above: Result Comment: mL/m in/1.73m2 CKD-EPI Creatinine Equation (2020) Performed By: #### L 501.5200, L100.0100, L501.2300, L500.2500 ####[facility] [address] [place], [address] Glucose [Mass/Vol] 87 mg/dL Normal 70-99 [facility] Comment on above: Performed By: #### L 501.5200, L100.0100, L501.2300, L500.2500 ####[facility] [address] [place], [address] Potassium [Moles/Vol] 3.7 mmol/L Normal 3.3-5.1 [facility] Comment on above: Performed By: #### L 501.5200, L100.0100, L501.2300, L500.2500 ####[facility] [address] [place], [address] Sodium [Moles/Vol] 140 mmol/L Normal 133-145 [facility] Comment on above: Performed By: #### L 501.5200, L100.0100, L501.2300, L500.2500 ####[facility] [address] [place], [address] Urea nitrogen [Mass/Vol] 18 mg/dL Normal 4-19 [facility] Comment on above: Performed By: #### L 501.5200, L100.0100, L501.2300, L500.2500 ####[facility] [address] [place], [address] Basophil percentageOrdered B y: Antwan Pitts on 08-22-2025 Basophils/100 WBC (Bld) 0.3 % Normal 0-1 [facility] Comment on above: Performed By: #### L 501.5200, L100.0100, L501.2300, L500.2500 ####[facility] [address] [place], [address] CBC W/Diff, Automatedon 10-1 Absolute Lymph 0.72 X10 3/uL Low 0.83-4.51 [facility] Comment on above: Performed By: #### L 501.5200, L100.0100, L501.2300, L500.2500 ####[facility] [address] [place], [address] Absolute Neut 5.2 X10 3/uL Normal 2.0-7.7 [facility] Comment on above: Performed By: #### L 501.5200, L100.0100, L501.2300, L500.2500 ####[facility] [address] [place], [address] IG% 1.400 High 0.0-0.9 [facility] Comment on above: Result Comment: IG% - Immature Granulocytes (promyelocytes, myelocytes andmetamyelocytes) > 1% indicates that a LEFT SHIFT is Present. Performed By: #### L 501.5200, L100.0100, L501.2300, L500.2500 ####[facility] [address] [place], [address] Lymphocytes/100 WBC (Bld) 10.9 % Low 19-41 [facility] Comment on above: Performed By: #### L 501.5200, L100.0100, L501.2300, L500.2500 ####[facility] [address] [place], [address] MCHC (RBC) [Mass/Vol] 32.3 g/dL Normal 32-36 [facility] Comment on above: Performed By: #### L 501.5200, L100.0100, L501.2300, L500.2500 ####[facility] [address] [place], [address] Nucleated RBC (Bld) [#/Vol] 0 10*3/uL Normal 0-5 [facility] Comment on above: Performed By: #### L 501.5200, L100.0100, L501.2300, L500.2500 ####[facility] [address] [place], [address] Platelet mean volume (Bld) [Entitic vol] 9.4 fL Normal 6.2-12.0 [facility] Comment on above: Performed By: #### L 501.5200, L100.0100, L501.2300, L500.2500 ####[facility] [address] [place], [address] RDW SD 43.7 fl Normal 35.1-43.9 [facility] Comment on above: Performed By: #### L 501.5200, L100.0100, L501.2300, L500.2500 ####[facility] [address] [place], [address] Carbon dioxide, total [Moles /volume] in Central venous bloodOrdered By: Antwan Pitts on 08-22-2025 CO2 [Moles/Vol] 20.2 mmol/L Low 21.0-32.0 [facility] Chloride assayOrdered By: Mikal Pitts on 08-22-2025 Chloride [Moles/Vol] 108 mmol/L 98-108 [facility] Eosinophil percentageOrdered By: Antwan Pitts on 08-22-2025 Eosinophils/100 WBC (Bld) 1.8 % Normal 0-5 [facility] Comment on above: Performed By: #### L 501.5200, L100.0100, L501.2300, L500.2500 ####[facility] [address] [place], [address] Erythrocyte distribution wid th ratioOrdered By: Antwan Pitts on 08-22-2025 Erythrocyte distribution width (RBC) [Ratio] 15.9 % High 11.6-14.6 [facility] Comment on above: Performed By: #### L 501.5200, L100.0100, L501.2300, L500.2500 ####[facility] [address] [place], [address] Erythrocyte distribution wid th standard deviationOrdered By: Antwan Pitts on 08-22-2025 Erythrocyte distribution width (RBC) [Ratio] 43.7 fl 35.1-43.9 [facility] Glomerular filtration rate ( GFR) estimation/1.73 sq m using serum, plasma, or whole bOrdered By: Antwan Pitts on 08-22-2025 GFR/1.73 sq M.predicted among non-blacks MDRD (S/P/Bld) [Vol rate/Area] 95 mL/min/{1.73_m2} >60 [facility] Hemoglobin measurementOrdere d By: Antwan Pitts on 08-22-2025 Hemoglobin (Bld) [Mass/Vol] 10.6 g/dL Low 13.0-16.5 [facility] Comment on above: Performed By: #### L 501.5200, L100.0100, L501.2300, L500.2500 ####[facility] [address] [place], [address] Immature granulocytes/100 WB C Auto (Bld)Ordered By: Antwan Pitts on 08-22-2025 Immature granulocytes/100 WBC (Bld) 1.400 % High 0.0-0.9 [facility] MCV (mean corpuscular volume ) determinationOrdered By: Antwan Pitts on 08-22-2025 MCV (RBC) [Entitic vol] 75.2 fL Low 80-94 [facility] Comment on above: Performed By: #### L 501.5200, L100.0100, L501.2300, L500.2500 ####[facility] [address] [place], [address] Magnesiumon 08-22-2025 Magnesium [Mass/Vol] 2.2 mg/dL Normal 1.5-2.2 [facility] Comment on above: Performed By: #### L 501.5200, L100.0100, L501.2300, L500.2500 ####[facility] [address] [place], [address] Magnesium measurement (mass/ volume)Ordered By: Antwan Pitts on 08-22-2025 Magnesium (Unsp spec) [Mass/Vol] 2.2 mg/dL 1.5-2.2 [facility] Mean corpuscular hemoglobin (MCH) determinationOrdered By: Antwan Pitts on 08-22-2025 MCH (RBC) [Entitic mass] 24.3 pg Low 27.0-32.0 [facility] Comment on above: Performed By: #### L 501.5200, L100.0100, L501.2300, L500.2500 ####[facility] [address] [place], [address] Monocyte percentageOrdered B y: Antwan Pitts on 08-22-2025 Monocytes/100 WBC (Bld) 6.8 % Normal 0-10 [facility] Comment on above: Performed By: #### L 501.5200, L100.0100, L501.2300, L500.2500 ####[facility] [address] [place], [address] Neutrophil percentageOrdered By: Antwan Pitts on 08-22-2025 Neutrophils/100 WBC (Bld) 78.8 % High 47-70 [facility] Comment on above: Performed By: #### L 501.5200, L100.0100, L501.2300, L500.2500 ####[facility] [address] [place], [address] Phosphoruson 08-22-2025 Phosphate [Mass/Vol] 2.8 mg/dL Normal 2.7-4.5 [facility] Comment on above: Performed By: #### L 501.5200, L100.0100, L501.2300, L500.2500 ####[facility] [address] [place], [address] Platelet countOrdered By: Mikal Pitts on 08-22-2025 Platelets (Bld) [#/Vol] 175 10*3/uL Normal 150-450 [facility] Comment on above: Performed By: #### L 501.5200, L100.0100, L501.2300, L500.2500 ####[facility] [address] [place], [address] Potassium measurement (mass/ volume)Ordered By: Antwan Pitts on 08-22-2025 Potassium (Unsp spec) [Mass/Vol] 3.7 mmol/L 3.3-5.1 [facility] Serum creatinine measurement (mass/volume)Ordered By: Antwan Pitts on 08-22-2025 Creatinine [Mass/Vol] 0.79 mg/dL 0.70-1.20 [facility] Serum glucose measurement (m ass/volume)Ordered By: Antwan Pitts on 08-22-2025 Glucose [Mass/Vol] 87 mg/dL 70-99 [facility] Serum or plasma calcium deangelo urement (mass/volume)Ordered By: Antwan Pitts on 08-22-2025 Calcium [Mass/Vol] 8.4 mg/dL 7.6-11.0 [facility] Serum or plasma urea nitroge n measurement (mass/volume)Ordered By: Antwan Pitts on 08-22-2025 Urea nitrogen [Mass/Vol] 18 mg/dL 4-19 [facility] Sodium levelOrdered By: Ajit Pitts on 08-22-2025 Sodium [Moles/Vol] 140 mmol/L 133-145 [facility] White blood cell (WBC) count Ordered By: Antwan Pitts on 08-22-2025 WBC (Bld) [#/Vol] 6.6 10*3/uL Normal 4.4-11.0 [facility] Comment on above: Performed By: #### L 501.5200, L100.0100, L501.2300, L500.2500 ####[facility] [address] [place], [address] Basic Metabolic Profile (BMP )on 08-20-2025 BUN/CRE 14.8 RATIO Normal 10-20 [facility] Comment on above: Performed By: #### L 100.0100, L500.2500 ####[facility] [address] [place], [address] Calcium [Mass/Vol] 8.3 mg/dL Normal 7.6-11.0 [facility] Comment on above: Performed By: #### L 100.0100, L500.2500 ####[facility] [address] [place], [address] Chloride [Moles/Vol] 107 mmol/L Normal 98-108 [facility] Comment on above: Performed By: #### L 100.0100, L500.2500 ####[facility] [address] [place], [address] CO2 [Moles/Vol] 21.3 mmol/L Normal 21.0-32.0 [facility] Comment on above: Performed By: #### L 100.0100, L500.2500 ####[facility] [address] [place], [address] Creatinine [Mass/Vol] 1.02 mg/dL Normal 0.70-1.20 [facility] Comment on above: Performed By: #### L 100.0100, L500.2500 ####[facility] [address] [place], [address] ECRCL 65.37 ml/min Normal 50-250 [facility] Comment on above: Performed By: #### L 100.0100, L500.2500 ####[facility] [address] [place], [address] GAP 11 Normal 5-15 [facility] Comment on above: Performed By: #### L 100.0100, L500.2500 ####[facility] [address] [place], [address] GFR/1.73 sq M.predicted among non-blacks MDRD (S/P/Bld) [Vol rate/Area] 79 mL/min/{1.73_m2} Normal >60 [facility] Comment on above: Result Comment: mL/m in/1.73m2 CKD-EPI Creatinine Equation (2020) Performed By: #### L 100.0100, L500.2500 ####[facility] [address] [place], [address] Glucose [Mass/Vol] 90 mg/dL Normal 70-99 [facility] Comment on above: Performed By: #### L 100.0100, L500.2500 ####[facility] [address] [place], [address] Potassium [Moles/Vol] 3.8 mmol/L Normal 3.3-5.1 [facility] Comment on above: Performed By: #### L 100.0100, L500.2500 ####[facility] [address] [place], [address] Sodium [Moles/Vol] 139 mmol/L Normal 133-145 [facility] Comment on above: Performed By: #### L 100.0100, L500.2500 ####[facility] [address] [place], [address] Urea nitrogen [Mass/Vol] 15 mg/dL Normal 4-19 [facility] Comment on above: Performed By: #### L 100.0100, L500.2500 ####[facility] [address] [place], [address] CBC W/Diff, Automatedon 08-09 Absolute Lymph 0.90 X10 3/uL Normal 0.83-4.51 [facility] Comment on above: Performed By: #### L 100.0100, L500.2500 ####[facility] [address] [place], [address] Absolute Neut 6.9 X10 3/uL Normal 2.0-7.7 [facility] Comment on above: Performed By: #### L 100.0100, L500.2500 ####[facility] [address] [place], [address] Basophils/100 WBC (Bld) 0.2 % Normal 0-1 [facility] Comment on above: Performed By: #### L 100.0100, L500.2500 ####[facility] [address] [place], [address] Eosinophils/100 WBC (Bld) 0.4 % Normal 0-5 [facility] Comment on above: Performed By: #### L 100.0100, L500.2500 ####[facility] [address] [place], [address] Erythrocyte distribution width (RBC) [Ratio] 16.9 % High 11.6-14.6 [facility] Comment on above: Performed By: #### L 100.0100, L500.2500 ####[facility] [address] [place], [address] Hematocrit (Bld) [Volume fraction] 33.7 % Low 40-54 [facility] Comment on above: Performed By: #### L 100.0100, L500.2500 ####[facility] [address] [place], [address] Hemoglobin (Bld) [Mass/Vol] 11.1 g/dL Low 13.0-16.5 [facility] Comment on above: Performed By: #### L 100.0100, L500.2500 ####[facility] [address] [place], [address] IG% 1.100 High 0.0-0.9 [facility] Comment on above: Result Comment: IG% - Immature Granulocytes (promyelocytes, myelocytes andmetamyelocytes) > 1% indicates that a LEFT SHIFT is Present. Performed By: #### L 100.0100, L500.2500 ####[facility] [address] [place], [address] Lymphocytes/100 WBC (Bld) 10.5 % Low 19-41 [facility] Comment on above: Performed By: #### L 100.0100, L500.2500 ####[facility] [address] [place], [address] MCH (RBC) [Entitic mass] 24.7 pg Low 27.0-32.0 [facility] Comment on above: Performed By: #### L 100.0100, L500.2500 ####[facility] [address] [place], [address] MCHC (RBC) [Mass/Vol] 32.9 g/dL Normal 32-36 [facility] Comment on above: Performed By: #### L 100.0100, L500.2500 ####[facility] [address] [place], [address] MCV (RBC) [Entitic vol] 74.9 fL Low 80-94 [facility] Comment on above: Performed By: #### L 100.0100, L500.2500 ####[facility] [address] [place], [address] Monocytes/100 WBC (Bld) 6.9 % Normal 0-10 [facility] Comment on above: Performed By: #### L 100.0100, L500.2500 ####[facility] [address] [place], [address] Neutrophils/100 WBC (Bld) 80.9 % High 47-70 [facility] Comment on above: Performed By: #### L 100.0100, L500.2500 ####[facility] [address] [place], [address] Nucleated RBC (Bld) [#/Vol] 0 10*3/uL Normal 0-5 [facility] Comment on above: Performed By: #### L 100.0100, L500.2500 ####[facility] [address] [place], [address] Platelet mean volume (Bld) [Entitic vol] 9.1 fL Normal 6.2-12.0 [facility] Comment on above: Performed By: #### L 100.0100, L500.2500 ####[facility] [address] [place], [address] Platelets (Bld) [#/Vol] 144 10*3/uL Low 150-450 [facility] Comment on above: Performed By: #### L 100.0100, L500.2500 ####[facility] [address] [place], [address] RBC (Bld) [#/Vol] 4.50 10*6/uL Low 4.6-6.2 [facility] Comment on above: Performed By: #### L 100.0100, L500.2500 ####[facility] [address] [place], [address] RDW SD 45.1 fl High 35.1-43.9 [facility] Comment on above: Performed By: #### L 100.0100, L500.2500 ####[facility] [address] [place], [address] WBC (Bld) [#/Vol] 8.6 10*3/uL Normal 4.4-11.0 [facility] Comment on above: Performed By: #### L 100.0100, L500.2500 ####[facility] [address] [place], [address] Consultation - Surgicalon 10 -12-2025 Consultation - Surgical Normal [facility] BASIC METABOLIC PANELon 10-1 Anion gap [Moles/Vol] 11 mmol/L Normal 3-13 [facility] Comment on above: Performed By: #### L AB15, [id number] ####Digital Media Designer: JENNI GERBER ([phone])[facility]ITTM[facility] (SWRLAB)[address] [place] [address] [place] Calcium [Mass/Vol] 8.6 mg/dL Low 8.8-10.0 [facility] Comment on above: Performed By: #### L AB15, [id number] ####Digital Media Designer: JENNI GERBER ([id number])[facility] RAMIREZ [facility]IT[facility] (SWRLAB)[address] Chloride [Moles/Vol] 109 mmol/L High 98-107 [facility] Comment on above: Performed By: #### L AB15, [id number] ####Digital Media Designer: JENNI GERBER ([id number])[facility] RAMIREZ RITTMAN (SWRLAB)[address] [place] [address] [place] CO2 [Moles/Vol] 19 mmol/L Low 23-31 [facility] Comment on above: Performed By: #### L AB15, [id number] ####Digital Media Designer: JENNI GERBER ([id number])[facility] RAMIREZ RITTMAN (SWRLAB)[address] [place] [address] [place] Creatinine [Mass/Vol] 1.19 mg/dL Normal 0.72-1.25 [facility] Comment on above: Performed By: #### L AB15, [id number] ####Digital Media Designer: JENNI GERBER ([phone])[facility] RAMIREZ [facility] (SWRLAB)[address] [place] [address] [place] GLOMERULAR FILTRATION RATE ML/MIN/1.73 SQ M.PREDICTED 65.3 mL/min/1.73m*2 Normal >60.0 [facility] Comment on above: Result Comment: Calc ulation based on the Chronic Kidney Disease Epidemiology Collaboration (CKD-EPI) equation refit without adjustment for race Performed By: #### L AB15, [id number] ####Digital Media Designer: JENNI GERBER ([id number])[facility] LIZARRAGATMAN (SWRLAB)[address] Glucose [Mass/Vol] 107 mg/dL Normal 82-115 [facility] Comment on above: Performed By: #### L AB15, [id number] ####Digital Media Designer: JENNI GERBER ([id number])[facility] LIZARRAGATMAN (SWRLAB)[address] [place] [address] Potassium [Moles/Vol] 3.8 mmol/L Normal 3.5-5.1 [facility] Comment on above: Result Comment: [facility] potassium values may be up to 0.5 mmol/L lower than serum values. Performed By: #### L AB15, [id number] ####Digital Media Designer: JENNI GERBER ([id number])[facility] LIZARRAGATMAN (SWRLAB)[address] [place] [address] Sodium [Moles/Vol] 139 mmol/L Normal 136-145 [facility] Comment on above: Performed By: #### L AB15, [id number] ####Digital Media Designer: JENNI GERBER ([id number])[facility]AP[facility]ier LIZARRAGATMAN (SWRLAB)[address] [place] [address] Urea nitrogen [Mass/Vol] 19 mg/dL Normal 9-23 [facility] Comment on above: Performed By: #### L AB15, [id number] ####Digital Media Designer: JENNI GERBER ([id number])[facility] LIZARRAGATMAN (SWRLAB)[address] [place] [address] BLOOD CULTUREon 08-19-2025 Bacteria identified Cx Nom (Bld) BLOOD CULTURE Reference No growth at 5 days ORDER COMMENTS: Blood Collection Site: Left Hand [ S = SUSCEPTIBLE R = RESISTANT I = INTERMEDIATE S-DD = Susceptible-dose dependent NS = Non-susceptible NO = No Interpretation ] Normal [facility] Comment on above: Performed By: #### L [id number] ####Digital Media Designer: JENNI GERBER ([id number])[facility])[address] [place] [address] Bacteria identified Cx Nom (Bld) BLOOD CULTURE Reference No growth at 5 days ORDER COMMENTS: Blood Collection Site: Left Antecubital [ S = SUSCEPTIBLE R = RESISTANT I = INTERMEDIATE S-DD = Susceptible-dose dependent NS = Non-susceptible NO = No Interpretation ] Normal [facility] Comment on above: Performed By: #### L [id number] ####Digital Media Designer: JENNI GERBER ([id number])[facility])[address] [place] [address] Basic metabolic 1998 panelon 08-19-2025 Anion gap [Moles/Vol] 11 mmol/L 3 - 13 mmol/L [facility] Calcium [Mass/Vol] 8.6 mg/dL Low 8.8 - 10. 0 mg/dL [facility] Chloride [Moles/Vol] 109 mmol/L High 98 - 10 7 mmol/L [facility] CO2 [Moles/Vol] 19 mmol/L Low 23 - 31 mmol/L [facility] Creatinine [Mass/Vol] 1.19 mg/dL 0.72 - 1.25 mg/dL [facility] GFR/1.73 sq M.predicted (S/P/Bld) [Vol rate/Area] 65.3 mL/min - PINF [facility] Comment on above: Calculation based on the Chronic Kidney Disease Epidemiology Collaboration (CKD-EPI) equation refit without adjustment for race Glucose [Mass/Vol] 107 mg/dL 82 - 115 mg/dL [facility] Potassium [Moles/Vol] 3.8 mmol/L 3.5 - 5.1 mmol/L [facility] Comment on above: Plasma potassium sunny ues may be up to 0.5 mmol/L lower than serum values. Sodium [Moles/Vol] 139 mmol/L 136 - 145 mmol/L [facility] Urea nitrogen [Mass/Vol] 19 mg/dL 9 - 23 mg/dL [facility] C-REACTIVE PROTEINon CRP [Mass/Vol] 54.6 mg/L High <5.0 [facility] Comment on above: Performed By: #### L AB15, [id number] ####Digital Media Designer: JENNI GERBER ([id number])[facility] (SWRLAB)[address] [place] [address] CBC W Auto Differential pane l (Bld)Ordered By: Sage Quinn on 08-19-2025 Basophils (Bld) [#/Vol] 0 10*3/uL 0.0 - 0.2 10*3/uL [facility] Basophils/100 WBC (Bld) 0.2 % 0.0 - 2.0 % [facility] Eosinophils (Bld) [#/Vol] 0 10*3/uL 0.0 - 0.5 10*3/uL [facility] Eosinophils/100 WBC (Bld) 0.2 % 0.0 - 6.0 % [facility] Erythrocyte distribution width (RBC) [Ratio] 17.1 % High 11.5 - 15.0 % [facility] Hematocrit (Bld) [Volume fraction] 36.7 % Low 40.0 - 52.0 % [facility] Hemoglobin (Bld) [Mass/Vol] 12.2 g/dL Low 13.0 - 18.0 g/dL [facility] Immature granulocytes (Bld) [#/Vol] 0.1 10*3/uL High NINF - 0.1 10*3/uL [facility] Immature granulocytes/100 WBC (Bld) 0.9 % 0.0 - 2.0 % [facility] Interpretation and review of laboratory results Abnormal [facility] Lymphocytes (Bld) [#/Vol] 0.7 10*3/uL Low 1.0 - 4.3 10*3/uL [facility] Lymphocytes/100 WBC (Bld) 5.3 % Low 15.0 - 45.0 % [facility] MCH (RBC) [Entitic mass] 25.1 pg Low 26.0 - 34.0 pg [facility] MCHC (RBC) [Mass/Vol] 33.2 % 30.5 - 36.0 % [facility] MCV (RBC) [Entitic vol] 75.4 fL Low 77.0 - 99.0 fL [facility] Monocytes (Bld) [#/Vol] 0.9 10*3/uL 0.0 - 0.9 10*3/uL [facility] Monocytes/100 WBC (Bld) 6.9 % 5.0 - 13.0 % [facility] Neutrophils (Bld) [#/Vol] 11.8 10*3/uL High 1.8 - 7.5 10*3/uL [facility] Neutrophils/100 WBC (Bld) 86.5 % High 38.0 - 82.0 % [facility] Nucleated RBC/100 WBC (Bld) [Ratio] 0 % [facility] Platelet mean volume (Bld) [Entitic vol] 8.9 fL Low 9.0 - 12.7 fL [facility] Comment on above: MPV is a calculated measurement using platelet volume ratio Platelets (Bld) [#/Vol] 155 10*3/uL 140 - 440 10*3/uL [facility] RBC (Bld) [#/Vol] 4.87 10*6/uL 4.40 - 5.9 0 10*6/uL [facility] WBC (Bld) [#/Vol] 13.7 10*3/uL High 3.6 - 10.7 10*3/uL [facility] CBC WITH AUTO DIFFERENTIALon 08-19-2025 Basophils (Bld) [#/Vol] 0.0 10*3/uL Normal 0.0-0.2 [facility] Comment on above: Performed By: #### Charli PRITCHARD322, [id number] ####Digital Media Designer: JENNI GERBER ([phone])[facility] [place] (SWRLAB)[address] [place] [address] Basophils/100 WBC (Bld) 0.2 % Normal 0.0-2.0 [facility] Comment on above: Performed By: #### Charli AB322, [id number] ####Digital Media Designer: JENNI GERBER ([id number])[facility] (SWRLAB)[address] [place] [address] Eosinophils (Bld) [#/Vol] 0.0 10*3/uL Normal 0.0-0.5 [facility] Comment on above: Performed By: #### Charli AB322, [id number] ####Digital Media Designer: JENNI GERBER ([id number])[facility] RITTMAN (SWRLAB)[address] [place] [address] [place] Eosinophils/100 WBC (Bld) 0.2 % Normal 0.0-6.0 [facility] Comment on above: Performed By: #### Charli AB322, [id number] ####Digital Media Designer: JENNI GERBER ([id number])[facility]IRE[facility]ITTMAN (SWRLAB)[address] [place] [address] Erythrocyte distribution width (RBC) [Ratio] 17.1 % High 11.5-15.0 [facility] Comment on above: Performed By: #### Charli PRITCHARD322, [id number] ####Digital Media Designer: JENNI GERBER ([id number])[facility] RAMIRE[facility] (SWRLAB)[address] [place] [address] Hematocrit (Bld) [Volume fraction] 36.7 % Low 40.0-52.0 [facility] Comment on above: Performed By: #### Charli PRITCHARD32Lisandra, [id number] ####Digital Media Designer: JENNI GERBER ([phone])[facility] (SWRLAB)[address] [place] [address] Hemoglobin (Bld) [Mass/Vol] 12.2 g/dL Low 13.0-18.0 [facility] Comment on above: Performed By: #### Charli PRITCHARD322, [id number] ####Digital Media Designer: JENNI GERBER ([id number])[facility] (SWRLAB)[address] [place] [address] IMMATURE GRANS % 0.9 % Normal 0.0-2.0 [facility] Comment on above: Performed By: #### Charli AB322, [id number] ####Digital Media Designer: JENNI GERBER ([id number])[facility] (SWRLAB)[address] [place] [address] IMMATURE GRANS ABSOLUTE 0.1 10*3/uL High <0.1 [facility] Comment on above: Performed By: #### Charli AB322, [id number] ####Digital Media Designer: JENNI GERBER ([id number])[facility] (SWRLAB)[address] [place] [address] [place] Lymphocytes (Bld) [#/Vol] 0.7 10*3/uL Low 1.0-4.3 [facility] Comment on above: Performed By: #### Charli AB322, [id number] ####Digital Media Designer: JENNI GERBER ([id number])[facility] (SWRLAB)[address] [place] [address] [place] Lymphocytes/100 WBC (Bld) 5.3 % Low 15.0-45.0 [facility] Comment on above: Performed By: #### Charli AB322, [id number] ####Digital Media Designer: JENNI GERBER ([id number])[facility] (SWRLAB)[address] [place] [address] [place] MCH (RBC) [Entitic mass] 25.1 pg Low 26.0-34.0 [facility] Comment on above: Performed By: #### Charli AB322, [id number] ####Digital Media Designer: JENNI GERBER ([id number])[facility] (SWRLAB)[address] [place] [address] MCHC 33.2 % Normal 30.5-36.0 [facility] Comment on above: Performed By: #### Charli AB322, [id number] ####Digital Media Designer: JENNI GERBER ([id number])[facility] (SWRLAB)[address] [place] [address] MCV (RBC) [Entitic vol] 75.4 fL Low 77.0-99.0 [facility] Comment on above: Performed By: #### L AB322, [id number] ####Digital Media Designer: JENNI GERBER ([id number])[facility] (SWRLAB)[address] [place] [address] [place] Monocytes (Bld) [#/Vol] 0.9 10*3/uL Normal 0.0-0.9 [facility] Comment on above: Performed By: #### L AB322, [id number] ####Digital Media Designer: JENNI GERBER ([phone])[facility] (SWRLAB)[address] [place] [address] [place] Monocytes/100 WBC (Bld) 6.9 % Normal 5.0-13.0 [facility] Comment on above: Performed By: #### L AB322, [id number] ####Digital Media Designer: JENNI GERBER ([id number])[facility] (SWRLAB)[address] [place] [address] [place] NEUTROPHILS ABSOLUTE 11.8 10*3/uL High 1.8-7.5 [facility] Comment on above: Performed By: #### Charli AB322, [id number] ####Digital Media Designer: JENNI GERBER ([id number])[facility] (SWRLAB)[address] [place] [address] [place] Neutrophils/100 WBC (Bld) 86.5 % High 38.0-82.0 [facility] Comment on above: Performed By: #### L AB322, [id number] ####Digital Media Designer: JENNI GERBER ([id number])[facility] (SWRLAB)[address] [place] [address] [place] NRBC 0.0 /100 WBCs Normal 0.0-2.0 [facility] Comment on above: Performed By: #### L AB322, [id number] ####Digital Media Designer: JENNI GERBER ([id number])[facility] (SWRLAB)[address] [place] [address] Platelet mean volume (Bld) [Entitic vol] 8.9 fL Low 9.0-12.7 [facility] Comment on above: Result Comment: MPV is a calculated measurement using platelet volume ratio Performed By: #### L AB322, [id number] ####Digital Media Designer: JENNI GERBER ([id number])[facility] (SWRLAB)[address] [place] [address] [place] Platelets (Bld) [#/Vol] 155 10*3/uL Normal 140-440 [facility] Comment on above: Performed By: #### L AB322, [id number] ####Digital Media Designer: JENNI GERBER ([id number])[facility] (SWRLAB)[address] [place] [address] RBC (Bld) [#/Vol] 4.87 10*6/uL Normal 4.40-5.90 [facility] Comment on above: Performed By: #### L AB322, [id number] ####Digital Media Designer: JENNI GERBER ([id number])[facility] (SWRLAB)[address] [place] [address] WBC (Bld) [#/Vol] 13.7 10*3/uL High 3.6-10.7 [facility] Comment on above: Performed By: #### L AB322, [id number] ####Digital Media Designer: JENNI GERBER ([id number])[facility] LIZARRAGATMAN (SWRLAB)[address] [place] [address] ED Nursing Noteon 08-19-2025 ED Nursing Note Stockinette placed o ivette pts left ac IV site. Transfer paperwork sent with pt and . to drive pt to [facility]. Normal [facility] ED Nursing Note Pt requesting to go to [facility] by private car, will drive. Dr. Birch in to speak with pt. Normal [facility] ED Nursing Note Dr. Birch speaking w [facility] hospitalist. Normal [facility] ED Nursing Note Applied bacitracin t o right forearm area of blisters and redness, covered with nonstick pads and secured with roll gauze. Normal [facility] ED Nursing Note Call placed to [facility]. Spoke with group home supervisor who states they do have beds and will have the hospitalist call back. Normal [facility] ED Nursing Note Pt ambulatory to [...] now it is triple the size. Normal [facility] ED Provider Noteon ED Provider Note [...] comparison di (more content not included)... Normal [facility] ESR (Bld) [Velocity]on 08-19 Interpretation and review of laboratory results Abnormal [facility] Extremity Upper without Cont raon 08-19-2025 Extremity Upper without Contra Normal [facility] H AND P Exam - Hospitaliston 08-19-2025 H&P Exam - Hospitalist Normal [facility] LACTIC ACID WITH REFLEXon Lactate [Moles/Vol] 1.3 mmol/L Normal 0.5-2.2 [facility] Comment on above: Performed By: #### L [id number] ####Digital Media Designer: JENNI GERBER ([id number])[facility])[address] [place] [address] Laboratory - Chemistry and C hemistry - challengeon 08-19-2025 Lactate [Moles/Vol] 1.3 mmol/L 0.5 - 2. 2 mmol/L [facility] CRP [Mass/Vol] 54.6 mg/L High NINF - 5.0 mg/L [facility] Laboratory - Hematology and Cell countson 08-19-2025 ESR (Bld) [Velocity] 29 mm/h High [facility] No Panel Informationon 08-19 Interpretation and review of laboratory results Normal [facility] Interpretation and review of laboratory results Abnormal [facility] SEDIMENTATION RATE, AUTOMATE Don 08-19-2025 SEDIMENTATION RATE, ERYTHROCYTE 29 mm/hr High 0-10 [facility] Comment on above: Performed By: #### L AB322, [id number] ####Digital Media Designer: JENNI GERBER ([id number])[facility] (SWRLAB)[address] [place] [address] XR Hand - right 3 Viewson Marked osteophyte at the third MCP joint, which may be seen with hemachromatosis or other more common etiologies. Large amount soft tissue swelling. Report Dictated on Electronically Signed By: Elisha Paniagua MD Electronically Signed Date/Time: 08/19/2025 4:33 PM EDT [facility] [employer] [facility] Patient Name: KENN VAUGHN : 1955 [...] tissue swelling of the hand is present. [facility] Elisha Paniagua MD - 08/19/2025 Patient [...] Electronically Signed Date/Time: 08/19/2025 4:33 PM EDT [facility] Radiology Study observation (narrative) [employer] XR Hand - right 3 ViewsOrder ed By: Elisha Paniagua on 08-19-2025 [employer] Work Phone: XR Radius and Ulna - right A P and Lateralon 08-19-2025 Volar forearm soft t issue swelling without radiopaque foreign body. Report Dictated on Electronically Signed By: Teodoro Powell MD Electronically Signed Date/Time: 08/19/2025 4:26 PM EDT [employer] [facility] Patient Name: KENN VAUGHN : 1955 [...] body identified. Subtle atherosclerotic calcifications are seen. [facility] Teodoro Powell MD - 08/19/2025 [...] Electronically Signed Date/Time: 08/19/2025 4:26 PM EDT [facility] Radiology Study observation (narrative) [facility] XR Radius and Ulna - right A P and LateralOrdered By: Teodoro Powell on 08-19-2025 [facility] Work Phone: Absolute lymphocyte countOrd ered By: Angela Rodriguez on 08-16-2025 Lymphocytes Auto (Unsp spec) [#/Vol] 1.03 10*3/uL 0.83-4.51 [facility] Absolute neutrophil countOrd ered By: Angela Rodriguez on 08-16-2025 Neutrophils (Bld) [#/Vol] 4.8 10*3/uL 2.0-7.7 [facility] Anion gap in Serum or Plasma Ordered By: Angela Rodriguez on 08-16-2025 Anion gap [Moles/Vol] 11 mmol/L 5-15 [facility] Automated lymphocyte count a s percentage of total leukocytesOrdered By: Angela Rodriguez on 08-16-2025 Lymphocytes/100 WBC Auto (Unsp spec) 14.7 % Low 19-41 [facility] BUN/creatinine ratioOrdered By: Angela Rodriguez on 08-16-2025 Urea nitrogen/Creatinine [Mass ratio] 23.4 mg/mg High 10-20 [facility] Basophil percentageOrdered B y: Angela Rodriguez on 08-16-2025 Basophils/100 WBC (Bld) 0.7 % 0-1 [facility] Bilirubin, totalOrdered By: Angela Rodriguez on 08-16-2025 Bilirubin [Mass/Vol] 0.46 mg/dL 0.00-1.30 [facility] CBC W/Diff, Automatedon Absolute Lymph 1.03 X10 3/uL Normal 0.83-4.51 [facility] Comment on above: Performed By: #### L 100.0100, L501.2300, L500.4050 ####[facility] [address] [place], [address] Absolute Neut 4.8 X10 3/uL Normal 2.0-7.7 [facility] Comment on above: Performed By: #### L 100.0100, L501.2300, L500.4050 ####[facility] [address] [place], [address] Basophils/100 WBC (Bld) 0.7 % Normal 0-1 [facility] Comment on above: Performed By: #### L 100.0100, L501.2300, L500.4050 ####[facility] [address] [place], [address] Eosinophils/100 WBC (Bld) 1.9 % Normal 0-5 [facility] Comment on above: Performed By: #### L 100.0100, L501.2300, L500.4050 ####[facility] [address] [place], [address] Erythrocyte distribution width (RBC) [Ratio] 16.7 % High 11.6-14.6 [facility] Comment on above: Performed By: #### L 100.0100, L501.2300, L500.4050 ####[facility] [address] [place], [address] Hematocrit (Bld) [Volume fraction] 39.0 % Low 40-54 [facility] Comment on above: Performed By: #### L 100.0100, L501.2300, L500.4050 ####[facility] [address] [place], [address] Hemoglobin (Bld) [Mass/Vol] 12.4 g/dL Low 13.0-16.5 [facility] Comment on above: Performed By: #### L 100.0100, L501.2300, L500.4050 ####[facility] [address] [place], [address] IG% 3.000 High 0.0-0.9 [facility] Comment on above: Result Comment: IG% - Immature Granulocytes (promyelocytes, myelocytes andmetamyelocytes) > 1% indicates that a LEFT SHIFT is Present. Performed By: #### L 100.0100, L501.2300, L500.4050 ####[facility] [address] [place], [address] Lymphocytes/100 WBC (Bld) 14.7 % Low 19-41 [facility] Comment on above: Performed By: #### L 100.0100, L501.2300, L500.4050 ####[facility] [address] [place], [address] MCH (RBC) [Entitic mass] 24.3 pg Low 27.0-32.0 [facility] Comment on above: Performed By: #### L 100.0100, L501.2300, L500.4050 ####[facility] [address] [place], [address] MCHC (RBC) [Mass/Vol] 31.8 g/dL Low 32-36 [facility] Comment on above: Performed By: #### L 100.0100, L501.2300, L500.4050 ####[facility] [address] [place], [address] MCV (RBC) [Entitic vol] 76.3 fL Low 80-94 [facility] Comment on above: Performed By: #### L 100.0100, L501.2300, L500.4050 ####[facility] [address] [place], [address] Monocytes/100 WBC (Bld) 11.0 % High 0-10 [facility] Comment on above: Performed By: #### L 100.0100, L501.2300, L500.4050 ####[facility] [address] [place], [address] Neutrophils/100 WBC (Bld) 68.7 % Normal 47-70 [facility] Comment on above: Performed By: #### L 100.0100, L501.2300, L500.4050 ####[facility] [address] [place], [address] Nucleated RBC (Bld) [#/Vol] 0 10*3/uL Normal 0-5 [facility] Comment on above: Performed By: #### L 100.0100, L501.2300, L500.4050 ####[facility] [address] [place], [address] Platelet mean volume (Bld) [Entitic vol] 8.9 fL Normal 6.2-12.0 [facility] Comment on above: Performed By: #### L 100.0100, L501.2300, L500.4050 ####[facility] [address] [place], [address] Platelets (Bld) [#/Vol] 166 10*3/uL Normal 150-450 [facility] Comment on above: Performed By: #### L 100.0100, L501.2300, L500.4050 ####[facility] [address] [place], [address] RBC (Bld) [#/Vol] 5.11 10*6/uL Normal 4.6-6.2 [facility] Comment on above: Performed By: #### L 100.0100, L501.2300, L500.4050 ####[facility] [address] [place], [address] RDW SD 45.9 fl High 35.1-43.9 [facility] Comment on above: Performed By: #### L 100.0100, L501.2300, L500.4050 ####[facility] [address] [place], [address] WBC (Bld) [#/Vol] 7.0 10*3/uL Normal 4.4-11.0 [facility] Comment on above: Performed By: #### L 100.0100, L501.2300, L500.4050 ####[facility] [address] [place], [address] Carbon dioxide, total [Moles /volume] in Central venous bloodOrdered By: Angela Rodriguez on 08-16-2025 CO2 [Moles/Vol] 20.3 mmol/L Low 21.0-32.0 [facility] Chloride assayOrdered By: Ivonne Rodriguez on 08-16-2025 Chloride [Moles/Vol] 107 mmol/L 98-108 [facility] Comprehensive Metabolic Prof ilon 08-16-2025 Albumin [Mass/Vol] 3.8 g/dL Normal 3.4-4.8 [facility] Comment on above: Performed By: #### L 100.0100, L501.2300, L500.4050 ####[facility] [address] [place], [address] Albumin/Globulin [Mass ratio] 1.9 {ratio} Normal 0.9-2.4 [facility] Comment on above: Performed By: #### L 100.0100, L501.2300, L500.4050 ####[facility] [address] [place], [address] ALK PHOS 50 U/L Normal 40-129 [facility] Comment on above: Performed By: #### L 100.0100, L501.2300, L500.4050 ####[facility] [address] [place], [address] ALT [Catalytic activity/Vol] 12 U/L Normal <=46 [facility] Comment on above: Performed By: #### L 100.0100, L501.2300, L500.4050 ####[facility] [address] [place], [address] AST [Catalytic activity/Vol] 15 U/L Normal <=37 [facility] Comment on above: Performed By: #### L 100.0100, L501.2300, L500.4050 ####[facility] [address] [place], [address] Bilirubin [Mass/Vol] 0.46 mg/dL Normal 0.00-1.30 [facility] Comment on above: Performed By: #### L 100.0100, L501.2300, L500.4050 ####[facility] [address] [place], [address] BUN/CRE 23.4 RATIO High 10-20 [facility] Comment on above: Performed By: #### L 100.0100, L501.2300, L500.4050 ####[facility] [address] [place], [address] Calcium [Mass/Vol] 8.8 mg/dL Normal 7.6-11.0 [facility] Comment on above: Performed By: #### L 100.0100, L501.2300, L500.4050 ####[facility] [address] [place], [address] Chloride [Moles/Vol] 107 mmol/L Normal 98-108 [facility] Comment on above: Performed By: #### L 100.0100, L501.2300, L500.4050 ####[facility] [address] [place], [address] CO2 [Moles/Vol] 20.3 mmol/L Low 21.0-32.0 [facility] Comment on above: Performed By: #### L 100.0100, L501.2300, L500.4050 ####[facility] [address] [place], [address] Creatinine [Mass/Vol] 1.01 mg/dL Normal 0.70-1.20 [facility] Comment on above: Performed By: #### L 100.0100, L501.2300, L500.4050 ####[facility] [address] [place], [address] ECRCL 66.69 ml/min Normal 50-250 [facility] Comment on above: Performed By: #### L 100.0100, L501.2300, L500.4050 ####[facility] [address] [place], [address] GAP 11 Normal 5-15 [facility] Comment on above: Performed By: #### L 100.0100, L501.2300, L500.4050 ####[facility] [address] [place], [address] GFR/1.73 sq M.predicted among non-blacks MDRD (S/P/Bld) [Vol rate/Area] 80 mL/min/{1.73_m2} Normal >60 [facility] Comment on above: Result Comment: mL/m in/1.73m2 CKD-EPI Creatinine Equation (2020) Performed By: #### L 100.0100, L501.2300, L500.4050 ####[facility] [address] [place], [address] Globulin (S) [Mass/Vol] 2.0 g/dL Low 2.2-4.2 [facility] Comment on above: Performed By: #### L 100.0100, L501.2300, L500.4050 ####[facility] [address] [place], [address] Glucose [Mass/Vol] 93 mg/dL Normal 70-99 [facility] Comment on above: Performed By: #### L 100.0100, L501.2300, L500.4050 ####[facility] [address] [place], [address] Potassium [Moles/Vol] 3.8 mmol/L Normal 3.3-5.1 [facility] Comment on above: Performed By: #### L 100.0100, L501.2300, L500.4050 ####[facility] [address] [place], [address] Sodium [Moles/Vol] 139 mmol/L Normal 133-145 [facility] Comment on above: Performed By: #### L 100.0100, L501.2300, L500.4050 ####[facility] [address] [place], [address] T PROT 5.8 g/dL Low 5.9-8.4 [facility] Comment on above: Performed By: #### L 100.0100, L501.2300, L500.4050 ####[facility] [address] [place], [address] Urea nitrogen [Mass/Vol] 24 mg/dL High 4-19 [facility] Comment on above: Performed By: #### L 100.0100, L501.2300, L500.4050 ####[facility] [address] [place], [address] Eosinophil percentageOrdered By: Angela Rodriguez on 08-16-2025 Eosinophils/100 WBC (Bld) 1.9 % 0-5 [facility] Erythrocyte distribution wid th ratioOrdered By: [facility] Rodriguez on 08-16-2025 Erythrocyte distribution width (RBC) [Ratio] 16.7 % High 11.6-14.6 [facility] Erythrocyte distribution wid th standard deviationOrdered By: [facility] Rodriguez on 08-16-2025 Erythrocyte distribution width (RBC) [Ratio] 45.9 fl High 35.1-43.9 [facility] Glomerular filtration rate ( GFR) estimation/1.73 sq m using serum, plasma, or whole bOrdered By: [facility] Rodriguez on 08-16-2025 GFR/1.73 sq M.predicted among non-blacks MDRD (S/P/Bld) [Vol rate/Area] 80 mL/min/{1.73_m2} >60 [facility] Comment on above: mL/min/1.73m2 CKD-EP I Creatinine Equation (2020) Hematocrit Auto (Bld) [Volum e fraction]Ordered By: [facility] Rodriguez on 08-16-2025 Hematocrit (Bld) [Volume fraction] 39.0 % Low 40-54 [facility] Hemoglobin measurementOrdere d By: Angela Rodriguez on 08-16-2025 Hemoglobin (Bld) [Mass/Vol] 12.4 g/dL Low 13.0-16.5 [facility] Immature granulocytes/100 WB C Auto (Bld)Ordered By: Angela Rodriguez on 08-16-2025 Immature granulocytes/100 WBC (Bld) 3.000 % High 0.0-0.9 [facility] Comment on above: IG% - Immature Granu locytes (promyelocytes, myelocytes and metamyelocytes) > 1% indicates that a LEFT SHIFT is Present. Laboratory - Chemistry and C hemistry - challengeOrdered By: Angela Rodriguez on 08-16-2025 AST [Catalytic activity/Vol] 15 U/L <38 [facility] MCV (mean corpuscular volume ) determinationOrdered By: Angela Rodriguez on 08-16-2025 MCV (RBC) [Entitic vol] 76.3 fL Low 80-94 [facility] MRI BRAIN WO/W IVCONon 08-16 MRI BRAIN [...] the posterior nasopharynx likely represents pooling secretions. Trust Officer: [facility] Transcribe Date/Time: Aug 30 2025 7:46A Dictated by : TEZ ROBLERO, This examination was interpreted and the report reviewed and electronically signed by: TEZ ROBLERO, on Aug 16 2025 4:11PM EST This document has been addended by: TEZ ROBLERO, on Aug 30 2025 8:14AM EST [id number] Normal [facility] Mean corpuscular hemoglobin (MCH) determinationOrdered By: Angela Rodriguez on 08-16-2025 MCH (RBC) [Entitic mass] 24.3 pg Low 27.0-32.0 [facility] Mean corpuscular hemoglobin concentration (MCHC) determinationOrdered By: Angela Rodriguez on 08-16-2025 MCHC (RBC) [Mass/Vol] 31.8 g/dL Low 32-36 [facility] Mean platelet volume determi nationOrdered By: Angela Rodriguez on 08-16-2025 Platelet mean volume (Bld) [Entitic vol] 8.9 fL 6.2-12.0 [facility] Monocyte percentageOrdered B y: Angela Rodriguez on 08-16-2025 Monocytes/100 WBC (Bld) 11.0 % High 0-10 [facility] Neutrophil percentageOrdered By: Angela Rodriguez on 08-16-2025 Neutrophils/100 WBC (Bld) 68.7 % 47-70 [facility] No Panel InformationOrdered By: Angela Rodriguez on 08-16-2025 15 U/L <38 [facility] Nucleated red blood cell per centageOrdered By: Angela Rodriguez on 08-16-2025 Nucleated RBC/100 WBC (Bld) [Ratio] 0 % 0-5 [facility] Oncology Visit Reporton 100 Oncology Visit Report Normal [facility] Phosphoruson 08-16-2025 Phosphate [Mass/Vol] 3.6 mg/dL Normal 2.7-4.5 [facility] Comment on above: Performed By: #### L 100.0100, L501.2300, L500.4050 ####[facility] [address] [place], [address] Platelet countOrdered By: Ivonne Rodriguez on 08-16-2025 Platelets (Bld) [#/Vol] 166 10*3/uL 150-450 [facility] Potassium measurement (mass/ volume)Ordered By: Angela Rodriguez on 08-16-2025 Potassium (Unsp spec) [Mass/Vol] 3.8 mmol/L 3.3-5.1 [facility] [facility] RBC Auto (Bld) [#/Vol]Ordere d By: Angela Rodriguez on 08-16-2025 RBC (Bld) [#/Vol] 5.11 10*6/uL 4.6-6.2 [facility] Serum creatinine measurement (mass/volume)Ordered By: Angela Rodriguez on 08-16-2025 Creatinine [Mass/Vol] 1.01 mg/dL 0.70-1.20 [facility] Serum globulin measurementOr dered By: Angela Rodriguez on 08-16-2025 Globulin (S) [Mass/Vol] 2.0 g/dL Low 2.2-4.2 [facility] Serum glucose measurement (m ass/volume)Ordered By: Angela Rodriguez on 08-16-2025 Glucose [Mass/Vol] 93 mg/dL 70-99 [facility] Serum or plasma alanine kong otransferase (ALT) measurementOrdered By: Angela Rodriguez on 08-16-2025 ALT [Catalytic activity/Vol] 12 U/L <47 [facility] Serum or plasma albumin deangelo urement (mass/volume)Ordered By: Angela Rodriguez on 08-16-2025 Albumin [Mass/Vol] 3.8 g/dL 3.4-4.8 [facility] Serum or plasma albumin/glob ulin mass ratioOrdered By: Angela Rodriguez on 08-16-2025 Albumin/Globulin [Mass ratio] 1.9 {ratio} 0.9-2.4 [facility] Serum or plasma alkaline alie sphatase measurementOrdered By: Angela Rodriguez on 08-16-2025 ALP [Catalytic activity/Vol] 50 U/L 40-129 [facility] Serum or plasma calcium deangelo urement (mass/volume)Ordered By: Angela Rodriguez on 08-16-2025 Calcium [Mass/Vol] 8.8 mg/dL 7.6-11.0 [facility] Serum or plasma urea nitroge n measurement (mass/volume)Ordered By: Angela Rodriguez on 08-16-2025 Urea nitrogen [Mass/Vol] 24 mg/dL High 4-19 [facility] Sodium levelOrdered By: Jackie Rodriguez on 08-16-2025 Sodium [Moles/Vol] 139 mmol/L 133-145 [facility] T4 Free Directon 08-16-2025 T4 FREE DIRECT 1.50 ng/dL High 0.76-1.46 [facility] Comment on above: Performed By: #### L 506.0400, L501.9520 ####[facility] [address] [place], [address] T4 freeOrdered By: Verónica rogers on 08-16-2025 Free T4 [Mass/Vol] 1.50 ng/dL High 0.76-1.46 [facility] TSH DL <= 0.005 mIU/L QnOrde red By: Verónica Meadows on 08-16-2025 TSH Qn 2.870 uIU/mL 0.300-4.200 [facility] Thyroid Stim Hormone (TSH)on 08-16-2025 TSH 2.870 uIU/mL Normal 0.300-4.200 [facility] Comment on above: Performed By: #### L 506.0400, L501.9520 ####[facility] [address] [place], [address] Total proteinOrdered By: Antnoi apodaca Michael on 08-16-2025 Protein [Mass/Vol] 5.8 g/dL Low 5.9-8.4 [facility] White blood cell (WBC) count Ordered By: Angela Rodriguez on 08-16-2025 WBC (Bld) [#/Vol] 7.0 10*3/uL 4.4-11.0 [facility] Cardiology Visit Reporton Cardiology Visit Report Normal [facility] Absolute lymphocyte countOrd ered By: Angela Rodriguez on 07-26-2025 Lymphocytes Auto (Unsp spec) [#/Vol] 0.92 10*3/uL 0.83-4.51 [facility] Absolute neutrophil countOrd ered By: Angela Rodriguez on 07-26-2025 Neutrophils (Bld) [#/Vol] 3.6 10*3/uL 2.0-7.7 [facility] Anion gap in Serum or Plasma Ordered By: Angela Rodriguez on 07-26-2025 Anion gap [Moles/Vol] 12 mmol/L 5-15 [facility] Automated lymphocyte count a s percentage of total leukocytesOrdered By: Angela Rodriguez on 07-26-2025 Lymphocytes/100 WBC Auto (Unsp spec) 16.9 % Low 19-41 [facility] BUN/creatinine ratioOrdered By: Angela Rodriguez on 07-26-2025 Urea nitrogen/Creatinine [Mass ratio] 17.3 mg/mg 10-20 [facility] Basophil percentageOrdered B y: Angela Rodriguez on 07-26-2025 Basophils/100 WBC (Bld) 1.1 % High 0-1 [facility] Bilirubin, totalOrdered By: Angela Rodriguez on 07-26-2025 Bilirubin [Mass/Vol] 0.41 mg/dL 0.00-1.30 [facility] CBC W/Diff, Automatedon 07-10 Absolute Lymph 0.92 X10 3/uL Normal 0.83-4.51 [facility] Comment on above: Performed By: #### L 501.2300, L500.4050, L100.0100 ####[facility] [address] [place], [address] Absolute Neut 3.6 X10 3/uL Normal 2.0-7.7 [facility] Comment on above: Performed By: #### L 501.2300, L500.4050, L100.0100 ####[facility] [address] [place], [address] Basophils/100 WBC (Bld) 1.1 % High 0-1 [facility] Comment on above: Performed By: #### L 501.2300, L500.4050, L100.0100 ####[facility] [address] [place], [address] Eosinophils/100 WBC (Bld) 1.7 % Normal 0-5 [facility] Comment on above: Performed By: #### L 501.2300, L500.4050, L100.0100 ####[facility] [address] [place], [address] Erythrocyte distribution width (RBC) [Ratio] 16.3 % High 11.6-14.6 [facility] Comment on above: Performed By: #### L 501.2300, L500.4050, L100.0100 ####[facility] [address] [place], [address] Hematocrit (Bld) [Volume fraction] 34.3 % Low 40-54 [facility] Comment on above: Performed By: #### L 501.2300, L500.4050, L100.0100 ####[facility] [address] [place], [address] Hemoglobin (Bld) [Mass/Vol] 11.0 g/dL Low 13.0-16.5 [facility] Comment on above: Performed By: #### L 501.2300, L500.4050, L100.0100 ####[facility] [address] [place], [address] IG% 2.800 High 0.0-0.9 [facility] Comment on above: Result Comment: IG% - Immature Granulocytes (promyelocytes, myelocytes andmetamyelocytes) > 1% indicates that a LEFT SHIFT is Present. Performed By: #### L 501.2300, L500.4050, L100.0100 ####[facility] [address] [place], [address] Lymphocytes/100 WBC (Bld) 16.9 % Low 19-41 [facility] Comment on above: Performed By: #### L 501.2300, L500.4050, L100.0100 ####[facility] [address] [place], [address] MCH (RBC) [Entitic mass] 24.8 pg Low 27.0-32.0 [facility] Comment on above: Performed By: #### L 501.2300, L500.4050, L100.0100 ####[facility] [address] [place], [address] MCHC (RBC) [Mass/Vol] 32.1 g/dL Normal 32-36 [facility] Comment on above: Performed By: #### L 501.2300, L500.4050, L100.0100 ####[facility] [address] [place], [address] MCV (RBC) [Entitic vol] 77.4 fL Low 80-94 [facility] Comment on above: Performed By: #### L 501.2300, L500.4050, L100.0100 ####[facility] [address] [place], [address] Monocytes/100 WBC (Bld) 10.9 % High 0-10 [facility] Comment on above: Performed By: #### L 501.2300, L500.4050, L100.0100 ####[facility] [address] [place], [address] Neutrophils/100 WBC (Bld) 66.6 % Normal 47-70 [facility] Comment on above: Performed By: #### L 501.2300, L500.4050, L100.0100 ####[facility] [address] [place], [address] Nucleated RBC (Bld) [#/Vol] 0 10*3/uL Normal 0-5 [facility] Comment on above: Performed By: #### L 501.2300, L500.4050, L100.0100 ####[facility] [address] [place], [address] Platelet mean volume (Bld) [Entitic vol] 8.8 fL Normal 6.2-12.0 [facility] Comment on above: Performed By: #### L 501.2300, L500.4050, L100.0100 ####[facility] [address] [place], [address] Platelets (Bld) [#/Vol] 141 10*3/uL Low 150-450 [facility] Comment on above: Performed By: #### L 501.2300, L500.4050, L100.0100 ####[facility] [address] [place], [address] RBC (Bld) [#/Vol] 4.43 10*6/uL Low 4.6-6.2 [facility] Comment on above: Performed By: #### L 501.2300, L500.4050, L100.0100 ####[facility] [address] [place], [address] RDW SD 46.2 fl High 35.1-43.9 [facility] Comment on above: Performed By: #### L 501.2300, L500.4050, L100.0100 ####[facility] [address] [place], [address] WBC (Bld) [#/Vol] 5.4 10*3/uL Normal 4.4-11.0 [facility] Comment on above: Performed By: #### L 501.2300, L500.4050, L100.0100 ####[facility] [address] [place], [address] Carbon dioxide, total [Moles /volume] in Central venous bloodOrdered By: Angela Rodriguez on 07-26-2025 CO2 [Moles/Vol] 18.4 mmol/L Low 21.0-32.0 [facility] Chloride assayOrdered By: Ivonne Rodriguez on 07-26-2025 Chloride [Moles/Vol] 109 mmol/L High 98-108 [facility] Comprehensive Metabolic Prof ilon 07-26-2025 Albumin [Mass/Vol] 3.5 g/dL Normal 3.4-4.8 [facility] Comment on above: Performed By: #### L 501.2300, L500.4050, L100.0100 ####[facility] [address] [place], [address] Albumin/Globulin [Mass ratio] 1.8 {ratio} Normal 0.9-2.4 [facility] Comment on above: Performed By: #### L 501.2300, L500.4050, L100.0100 ####[facility] [address] [place], [address] ALK PHOS 48 U/L Normal 40-129 [facility] Comment on above: Performed By: #### L 501.2300, L500.4050, L100.0100 ####[facility] [address] [place], [address] ALT [Catalytic activity/Vol] 12 U/L Normal <=46 [facility] Comment on above: Performed By: #### L 501.2300, L500.4050, L100.0100 ####[facility] [address] [place], [address] AST [Catalytic activity/Vol] 17 U/L Normal <=37 [facility] Comment on above: Performed By: #### L 501.2300, L500.4050, L100.0100 ####[facility] [address] [place], [address] Bilirubin [Mass/Vol] 0.41 mg/dL Normal 0.00-1.30 [facility] Comment on above: Performed By: #### L 501.2300, L500.4050, L100.0100 ####[facility] [address] [place], [address] BUN/CRE 17.3 RATIO Normal 10-20 [facility] Comment on above: Performed By: #### L 501.2300, L500.4050, L100.0100 ####[facility] [address] [place], [address] Calcium [Mass/Vol] 8.5 mg/dL Normal 7.6-11.0 [facility] Comment on above: Performed By: #### L 501.2300, L500.4050, L100.0100 ####[facility] [address] [place], [address] Chloride [Moles/Vol] 109 mmol/L High 98-108 [facility] Comment on above: Performed By: #### L 501.2300, L500.4050, L100.0100 ####[facility] [address] [place], [address] CO2 [Moles/Vol] 18.4 mmol/L Low 21.0-32.0 [facility] Comment on above: Performed By: #### L 501.2300, L500.4050, L100.0100 ####[facility] [address] [place], [address] Creatinine [Mass/Vol] 0.99 mg/dL Normal 0.70-1.20 [facility] Comment on above: Performed By: #### L 501.2300, L500.4050, L100.0100 ####[facility] [address] [place], [address] ECRCL 68.04 ml/min Normal 50-250 [facility] Comment on above: Performed By: #### L 501.2300, L500.4050, L100.0100 ####[facility] [address] [place], [address] GAP 12 Normal 5-15 [facility] Comment on above: Performed By: #### L 501.2300, L500.4050, L100.0100 ####[facility] [address] [place], [address] GFR/1.73 sq M.predicted among non-blacks MDRD (S/P/Bld) [Vol rate/Area] 81 mL/min/{1.73_m2} Normal >60 [facility] Comment on above: Result Comment: mL/m in/1.73m2 CKD-EPI Creatinine Equation (2020) Performed By: #### L 501.2300, L500.4050, L100.0100 ####[facility] [address] [place], [address] Globulin (S) [Mass/Vol] 2.0 g/dL Low 2.2-4.2 [facility] Comment on above: Performed By: #### L 501.2300, L500.4050, L100.0100 ####[facility] [address] [place], [address] Glucose [Mass/Vol] 120 mg/dL High 70-99 [facility] Comment on above: Performed By: #### L 501.2300, L500.4050, L100.0100 ####[facility] [address] [place], [address] Potassium [Moles/Vol] 3.8 mmol/L Normal 3.3-5.1 [facility] Comment on above: Performed By: #### L 501.2300, L500.4050, L100.0100 ####[facility] [address] [place], [address] Sodium [Moles/Vol] 139 mmol/L Normal 133-145 [facility] Comment on above: Performed By: #### L 501.2300, L500.4050, L100.0100 ####[facility] [address] [place], [address] T PROT 5.5 g/dL Low 5.9-8.4 [facility] Comment on above: Performed By: #### L 501.2300, L500.4050, L100.0100 ####[facility] [address] [place], [address] Urea nitrogen [Mass/Vol] 17 mg/dL Normal 4-19 [facility] Comment on above: Performed By: #### L 501.2300, L500.4050, L100.0100 ####[facility] [address] [place], [address] Eosinophil percentageOrdered By: Angela Rodriguez on 07-26-2025 Eosinophils/100 WBC (Bld) 1.7 % 0-5 [facility] Erythrocyte distribution wid th ratioOrdered By: [facility] on 07-26-2025 Erythrocyte distribution width (RBC) [Ratio] 16.3 % High 11.6-14.6 [facility] Erythrocyte distribution wid th standard deviationOrdered By: [facility] Rodriguez on 07-26-2025 Erythrocyte distribution width (RBC) [Ratio] 46.2 fl High 35.1-43.9 [facility] Glomerular filtration rate ( GFR) estimation/1.73 sq m using serum, plasma, or whole bOrdered By: [facility] Rodriguez on 07-26-2025 GFR/1.73 sq M.predicted among non-blacks MDRD (S/P/Bld) [Vol rate/Area] 81 mL/min/{1.73_m2} >60 [facility] Comment on above: mL/min/1.73m2 CKD-EP I Creatinine Equation (2020) Hematocrit Auto (Bld) [Volum e fraction]Ordered By: [facility] Michael on 07-26-2025 Hematocrit (Bld) [Volume fraction] 34.3 % Low 40-54 [facility] Hemoglobin measurementOrdere d By: [facility] Michael on 07-26-2025 Hemoglobin (Bld) [Mass/Vol] 11.0 g/dL Low 13.0-16.5 [facility] Immature granulocytes/100 WB C Auto (Bld)Ordered By: [facility] Rodriguez on 07-26-2025 Immature granulocytes/100 WBC (Bld) 2.800 % High 0.0-0.9 [facility] Comment on above: IG% - Immature Granu locytes (promyelocytes, myelocytes and metamyelocytes) > 1% indicates that a LEFT SHIFT is Present. Laboratory - Chemistry and C hemistry - challengeOrdered By: [facility] Michael on 07-26-2025 AST [Catalytic activity/Vol] 17 U/L <38 [facility] MCV (mean corpuscular volume ) determinationOrdered By: [facility] Rodriguez on 07-26-2025 MCV (RBC) [Entitic vol] 77.4 fL Low 80-94 [facility] Magnesiumon 07-26-2025 Magnesium [Mass/Vol] 2.0 mg/dL Normal 1.5-2.2 [facility] Comment on above: Performed By: #### L 501.5200 ####[facility] [address] [place], [place], [id number] Magnesium measurement (mass/ volume)Ordered By: Angela Rodriguez on 07-26-2025 Magnesium (Unsp spec) [Mass/Vol] 2.0 mg/dL 1.5-2.2 [facility] Mean corpuscular hemoglobin (MCH) determinationOrdered By: Angela Rodriguez on 07-26-2025 MCH (RBC) [Entitic mass] 24.8 pg Low 27.0-32.0 [facility] Mean corpuscular hemoglobin concentration (MCHC) determinationOrdered By: Angela Rodriguez on 07-26-2025 MCHC (RBC) [Mass/Vol] 32.1 g/dL 32-36 [facility] Mean platelet volume determi nationOrdered By: Angela Rodriguez on 07-26-2025 Platelet mean volume (Bld) [Entitic vol] 8.8 fL 6.2-12.0 [facility] Monocyte percentageOrdered B y: Angela Rodriguez on 07-26-2025 Monocytes/100 WBC (Bld) 10.9 % High 0-10 [facility] Neutrophil percentageOrdered By: [facility] Rodriguez on 07-26-2025 Neutrophils/100 WBC (Bld) 66.6 % 47-70 [facility] Nucleated red blood cell per centageOrdered By: Angela Rodriguez on 07-26-2025 Nucleated RBC/100 WBC (Bld) [Ratio] 0 % 0-5 [facility] Oncology Visit Reporton 07-10 Oncology Visit Report Normal [facility] Phosphoruson 07-26-2025 Phosphate [Mass/Vol] 3.3 mg/dL Normal 2.7-4.5 [facility] Comment on above: Performed By: #### L 501.2300, L500.4050, L100.0100 ####[facility] [address] [place], [place], [address] Platelet countOrdered By: Ivonne Rodriguez on 07-26-2025 Platelets (Bld) [#/Vol] 141 10*3/uL Low 150-450 [facility] Potassium measurement (mass/ volume)Ordered By: Angela Rodriguez on 07-26-2025 Potassium (Unsp spec) [Mass/Vol] 3.8 mmol/L 3.3-5.1 [facility] RBC Auto (Bld) [#/Vol]Ordere d By: Angela Rodriguez on 07-26-2025 RBC (Bld) [#/Vol] 4.43 10*6/uL Low 4.6-6.2 [facility] Serum creatinine measurement (mass/volume)Ordered By: Angela Rodriguez on 07-26-2025 Creatinine [Mass/Vol] 0.99 mg/dL 0.70-1.20 [facility] Serum globulin measurementOr dered By: Angela Rodriguez on 07-26-2025 Globulin (S) [Mass/Vol] 2.0 g/dL Low 2.2-4.2 [facility] Serum glucose measurement (m ass/volume)Ordered By: Angela Rodriguez on 07-26-2025 Glucose [Mass/Vol] 120 mg/dL High 70-99 [facility] Serum or plasma alanine kong otransferase (ALT) measurementOrdered By: Angela Rodriguez on 07-26-2025 ALT [Catalytic activity/Vol] 12 U/L <47 [facility] Serum or plasma albumin deangelo urement (mass/volume)Ordered By: Angela Rodriguez on 07-26-2025 Albumin [Mass/Vol] 3.5 g/dL 3.4-4.8 [facility] Serum or plasma albumin/glob ulin mass ratioOrdered By: Angela Rodriguez on 07-26-2025 Albumin/Globulin [Mass ratio] 1.8 {ratio} 0.9-2.4 [facility] Serum or plasma alkaline alie sphatase measurementOrdered By: Angela Rodriguez on 07-26-2025 ALP [Catalytic activity/Vol] 48 U/L 40-129 [facility] Serum or plasma calcium deangelo urement (mass/volume)Ordered By: Angela Rodriguez on 07-26-2025 Calcium [Mass/Vol] 8.5 mg/dL 7.6-11.0 [facility] Serum or plasma urea nitroge n measurement (mass/volume)Ordered By: Angela Michael on 07-26-2025 Urea nitrogen [Mass/Vol] 17 mg/dL 4-19 [facility] Sodium levelOrdered By: Jackie lancaster Michael on 07-26-2025 Sodium [Moles/Vol] 139 mmol/L 133-145 [facility] Total proteinOrdered By: Antoni apodaca Michael on 07-26-2025 Protein [Mass/Vol] 5.5 g/dL Low 5.9-8.4 [facility] White blood cell (WBC) count Ordered By: Angela Michael on 07-26-2025 WBC (Bld) [#/Vol] 5.4 10*3/uL 4.4-11.0 [facility] Absolute lymphocyte countOrd ered By: Angela Michael on 07-05-2025 Lymphocytes Auto (Unsp spec) [#/Vol] 0.79 10*3/uL Low 0.83-4.51 [facility] Anion gap in Serum or Plasma Ordered By: Angela Michael on 07-05-2025 Anion gap [Moles/Vol] 12 mmol/L 5-15 [facility] Automated lymphocyte count a s percentage of total leukocytesOrdered By: Angela Michael on 07-05-2025 Lymphocytes/100 WBC Auto (Unsp spec) 8.2 % Low 19-41 [facility] BUN/creatinine ratioOrdered By: [facility] on 07-05-2025 Urea nitrogen/Creatinine [Mass ratio] 21.1 mg/mg High 10-20 [facility] Basophil percentageOrdered B y: Angela Michael on 07-05-2025 Basophils/100 WBC (Bld) 0.6 % 0-1 [facility] Bilirubin, totalOrdered By: [facility] on 07-05-2025 Bilirubin [Mass/Vol] 0.42 mg/dL 0.00-1.30 [facility] CBC W/Diff, Automatedon 06-10 Absolute Lymph 0.79 X10 3/uL Low 0.83-4.51 [facility] Comment on above: Performed By: #### L 500.4050, L501.2300, L100.0100 ####[facility] [address] [place], [address] Absolute Neut 8.0 X10 3/uL High 2.0-7.7 [facility] Comment on above: Performed By: #### L 500.4050, L501.2300, L100.0100 ####[facility] [address] [place], [address] Basophils/100 WBC (Bld) 0.6 % Normal 0-1 [facility] Comment on above: Performed By: #### L 500.4050, L501.2300, L100.0100 ####[facility] [address] [place], [address] Eosinophils/100 WBC (Bld) 0.7 % Normal 0-5 [facility] Comment on above: Performed By: #### L 500.4050, L501.2300, L100.0100 ####[facility] [address] [place], [address] Erythrocyte distribution width (RBC) [Ratio] 17.0 % High 11.6-14.6 [facility] Comment on above: Performed By: #### L 500.4050, L501.2300, L100.0100 ####[facility] [address] [place], [address] Hematocrit (Bld) [Volume fraction] 38.6 % Low 40-54 [facility] Comment on above: Performed By: #### L 500.4050, L501.2300, L100.0100 ####[facility] [address] [place], [address] Hemoglobin (Bld) [Mass/Vol] 12.5 g/dL Low 13.0-16.5 [facility] Comment on above: Performed By: #### L 500.4050, L501.2300, L100.0100 ####[facility] [address] [place], [address] IG% 1.800 High 0.0-0.9 [facility] Comment on above: Result Comment: IG% - Immature Granulocytes (promyelocytes, myelocytes andmetamyelocytes) > 1% indicates that a LEFT SHIFT is Present. Performed By: #### L 500.4050, L501.2300, L100.0100 ####[facility] [address] [place], [address] Lymphocytes/100 WBC (Bld) 8.2 % Low 19-41 [facility] Comment on above: Performed By: #### L 500.4050, L501.2300, L100.0100 ####[facility] [address] [place], [address] MCH (RBC) [Entitic mass] 25.0 pg Low 27.0-32.0 [facility] Comment on above: Performed By: #### L 500.4050, L501.2300, L100.0100 ####[facility] [address] [place], [address] MCHC (RBC) [Mass/Vol] 32.4 g/dL Normal 32-36 [facility] Comment on above: Performed By: #### L 500.4050, L501.2300, L100.0100 ####[facility] [address] [place], [address] MCV (RBC) [Entitic vol] 77.2 fL Low 80-94 [facility] Comment on above: Performed By: #### L 500.4050, L501.2300, L100.0100 ####[facility] [address] [place], [address] Monocytes/100 WBC (Bld) 6.3 % Normal 0-10 [facility] Comment on above: Performed By: #### L 500.4050, L501.2300, L100.0100 ####[facility] [address] [place], [address] Neutrophils/100 WBC (Bld) 82.4 % High 47-70 [facility] Comment on above: Performed By: #### L 500.4050, L501.2300, L100.0100 ####[facility] [address] [place], [address] Nucleated RBC (Bld) [#/Vol] 0 10*3/uL Normal 0-5 [facility] Comment on above: Performed By: #### L 500.4050, L501.2300, L100.0100 ####[facility] [address] [place], [address] Platelet mean volume (Bld) [Entitic vol] 9.0 fL Normal 6.2-12.0 [facility] Comment on above: Performed By: #### L 500.4050, L501.2300, L100.0100 ####[facility] [address] [place], [place], [address] Platelets (Bld) [#/Vol] 173 10*3/uL Normal 150-450 [facility] Comment on above: Performed By: #### L 500.4050, L501.2300, L100.0100 ####[facility] [address] [place], [address] RBC (Bld) [#/Vol] 5.00 10*6/uL Normal 4.6-6.2 [facility] Comment on above: Performed By: #### L 500.4050, L501.2300, L100.0100 ####[facility] [address] [place], [address] RDW SD 47.4 fl High 35.1-43.9 [facility] Comment on above: Performed By: #### L 500.4050, L501.2300, L100.0100 ####[facility] [address] [place], [address] WBC (Bld) [#/Vol] 9.7 10*3/uL Normal 4.4-11.0 [facility] Comment on above: Performed By: #### L 500.4050, L501.2300, L100.0100 ####[facility] [address] [place], [address] Carbon dioxide, total [Moles /volume] in Central venous bloodOrdered By: Angela Rodriguez on 07-05-2025 CO2 [Moles/Vol] 20.3 mmol/L Low 21.0-32.0 [facility] Chloride assayOrdered By: Ivonne Rodriguez on 07-05-2025 Chloride [Moles/Vol] 105 mmol/L 98-108 [facility] Comprehensive Metabolic Prof ilon 07-05-2025 Albumin [Mass/Vol] 4.0 g/dL Normal 3.4-4.8 [facility] Comment on above: Performed By: #### L 500.4050, L501.2300, L100.0100 ####[facility] [address] [place], [address] Albumin/Globulin [Mass ratio] 2.0 {ratio} Normal 0.9-2.4 [facility] Comment on above: Performed By: #### L 500.4050, L501.2300, L100.0100 ####[facility] [address] [place], [address] ALK PHOS 49 U/L Normal 40-129 [facility] Comment on above: Performed By: #### L 500.4050, L501.2300, L100.0100 ####[facility] [address] [place], [address] ALT [Catalytic activity/Vol] 17 U/L Normal <=46 [facility] Comment on above: Performed By: #### L 500.4050, L501.2300, L100.0100 ####[facility] [address] [place], [address] AST [Catalytic activity/Vol] 19 U/L Normal <=37 [facility] Comment on above: Performed By: #### L 500.4050, L501.2300, L100.0100 ####[facility] [address] [place], [address] Bilirubin [Mass/Vol] 0.42 mg/dL Normal 0.00-1.30 [facility] Comment on above: Performed By: #### L 500.4050, L501.2300, L100.0100 ####[facility] [address] [place], [address] BUN/CRE 21.1 RATIO High 10-20 [facility] Comment on above: Performed By: #### L 500.4050, L501.2300, L100.0100 ####[facility] [address] [place], [address] Calcium [Mass/Vol] 9.2 mg/dL Normal 7.6-11.0 [facility] Comment on above: Performed By: #### L 500.4050, L501.2300, L100.0100 ####[facility] [address] [place], [address] Chloride [Moles/Vol] 105 mmol/L Normal 98-108 [facility] Comment on above: Performed By: #### L 500.4050, L501.2300, L100.0100 ####[facility] [address] [place], [address] CO2 [Moles/Vol] 20.3 mmol/L Low 21.0-32.0 [facility] Comment on above: Performed By: #### L 500.4050, L501.2300, L100.0100 ####[facility] [address] [place], [address] Creatinine [Mass/Vol] 1.10 mg/dL Normal 0.70-1.20 [facility] Comment on above: Performed By: #### L 500.4050, L501.2300, L100.0100 ####[facility] [address] [place], [address] ECRCL 60.76 ml/min Normal 50-250 [facility] Comment on above: Performed By: #### L 500.4050, L501.2300, L100.0100 ####[facility] [address] [place], [address] GAP 12 Normal 5-15 [facility] Comment on above: Performed By: #### L 500.4050, L501.2300, L100.0100 ####[facility] [address] [place], [address] GFR/1.73 sq M.predicted among non-blacks MDRD (S/P/Bld) [Vol rate/Area] 72 mL/min/{1.73_m2} Normal >60 [facility] Comment on above: Result Comment: mL/m in/1.73m2 CKD-EPI Creatinine Equation (2020) Performed By: #### L 500.4050, L501.2300, L100.0100 ####[facility] [address] [place], [address] Globulin (S) [Mass/Vol] 2.1 g/dL Low 2.2-4.2 [facility] Comment on above: Performed By: #### L 500.4050, L501.2300, L100.0100 ####[facility] [address] [place], [address] Glucose [Mass/Vol] 107 mg/dL High 70-99 [facility] Comment on above: Performed By: #### L 500.4050, L501.2300, L100.0100 ####[facility] [address] [place], [address] Potassium [Moles/Vol] 4.1 mmol/L Normal 3.3-5.1 [facility] Comment on above: Performed By: #### L 500.4050, L501.2300, L100.0100 ####[facility] [address] [place], [address] Sodium [Moles/Vol] 138 mmol/L Normal 133-145 [facility] Comment on above: Performed By: #### L 500.4050, L501.2300, L100.0100 ####[facility] [address] [place], [address] T PROT 6.1 g/dL Normal 5.9-8.4 [facility] Comment on above: Performed By: #### L 500.4050, L501.2300, L100.0100 ####[facility] [address] [place], [address] Urea nitrogen [Mass/Vol] 23 mg/dL High 4-19 [facility] Comment on above: Performed By: #### L 500.4050, L501.2300, L100.0100 ####[facility] [address] [place], [address] Eosinophil percentageOrdered By: Angela Rodriguez on 07-05-2025 Eosinophils/100 WBC (Bld) 0.7 % 0-5 [facility] Erythrocyte distribution wid th ratioOrdered By: Angela Rodriguez on 07-05-2025 Erythrocyte distribution width (RBC) [Ratio] 17.0 % High 11.6-14.6 [facility] Erythrocyte distribution wid th standard deviationOrdered By: Angela Rodriguez on 07-05-2025 Erythrocyte distribution width (RBC) [Ratio] 47.4 fl High 35.1-43.9 [facility] Glomerular filtration rate ( GFR) estimation/1.73 sq m using serum, plasma, or whole bOrdered By: Angela Rodriguez on 07-05-2025 GFR/1.73 sq M.predicted among non-blacks MDRD (S/P/Bld) [Vol rate/Area] 72 mL/min/{1.73_m2} >60 [facility] Hematocrit Auto (Bld) [Volum e fraction]Ordered By: Angela Rodriguez on 07-05-2025 Hematocrit (Bld) [Volume fraction] 38.6 % Low 40-54 [facility] Hemoglobin measurementOrdere d By: Angela Rodriguez on 07-05-2025 Hemoglobin (Bld) [Mass/Vol] 12.5 g/dL Low 13.0-16.5 [facility] Immature granulocytes/100 WB C Auto (Bld)Ordered By: [facility] Rodriguez on 07-05-2025 Immature granulocytes/100 WBC (Bld) 1.800 % High 0.0-0.9 [facility] MCV (mean corpuscular volume ) determinationOrdered By: [facility] Michael on 07-05-2025 MCV (RBC) [Entitic vol] 77.2 fL Low 80-94 [facility] Mean corpuscular hemoglobin (MCH) determinationOrdered By: [facility] Michael on 07-05-2025 MCH (RBC) [Entitic mass] 25.0 pg Low 27.0-32.0 [facility] Monocyte percentageOrdered B y: Angela Rodriguez on 07-05-2025 Monocytes/100 WBC (Bld) 6.3 % 0-10 [facility] Neutrophil percentageOrdered By: [facility] Michael on 07-05-2025 Neutrophils/100 WBC (Bld) 82.4 % High 47-70 [facility] No Panel InformationOrdered By: [facility] Michael on 07-05-2025 19 U/L <38 [facility] Oncology Visit Reporton 06-10 Oncology Visit Report Normal [facility] Phosphoruson 07-05-2025 Phosphate [Mass/Vol] 3.7 mg/dL Normal 2.7-4.5 [facility] Comment on above: Performed By: #### L 500.4050, L501.2300, L100.0100 ####[facility] [address] [place], [address] Platelet countOrdered By: Ivonne Rodriguez on 07-05-2025 Platelets (Bld) [#/Vol] 173 10*3/uL 150-450 [facility] Potassium measurement (mass/ volume)Ordered By: Angela Rodriguez on 07-05-2025 Potassium (Unsp spec) [Mass/Vol] 4.1 mmol/L 3.3-5.1 [facility] RBC Auto (Bld) [#/Vol]Ordere d By: Angela Rodriguez on 07-05-2025 RBC (Bld) [#/Vol] 5.00 10*6/uL 4.6-6.2 [facility] Serum creatinine measurement (mass/volume)Ordered By: Angela Rodriguez on 07-05-2025 Creatinine [Mass/Vol] 1.10 mg/dL 0.70-1.20 [facility] Serum globulin measurementOr dered By: Angela Rodriguez on 07-05-2025 Globulin (S) [Mass/Vol] 2.1 g/dL Low 2.2-4.2 [facility] Serum glucose measurement (m ass/volume)Ordered By: Angela Rodriguez on 07-05-2025 Glucose [Mass/Vol] 107 mg/dL High 70-99 [facility] Serum or plasma alanine kong otransferase (ALT) measurementOrdered By: Angela Rodriguez on 07-05-2025 ALT [Catalytic activity/Vol] 17 U/L <47 [facility] Serum or plasma albumin deangelo urement (mass/volume)Ordered By: Angela Rodriguez on 07-05-2025 Albumin [Mass/Vol] 4.0 g/dL 3.4-4.8 [facility] Serum or plasma albumin/glob ulin mass ratioOrdered By: Angela Rodriguez on 07-05-2025 Albumin/Globulin [Mass ratio] 2.0 {ratio} 0.9-2.4 [facility] Serum or plasma alkaline alie sphatase measurementOrdered By: Angela Rodriguez on 07-05-2025 ALP [Catalytic activity/Vol] 49 U/L 40-129 [facility] Serum or plasma calcium deangelo urement (mass/volume)Ordered By: Angela Rodriguez on 07-05-2025 Calcium [Mass/Vol] 9.2 mg/dL 7.6-11.0 [facility] Serum or plasma urea nitroge n measurement (mass/volume)Ordered By: Angela Rodriguez on 07-05-2025 Urea nitrogen [Mass/Vol] 23 mg/dL High 4-19 [facility] Sodium levelOrdered By: Jackie tonny Michael on 07-05-2025 Sodium [Moles/Vol] 138 mmol/L 133-145 [facility] Total proteinOrdered By: Antoni Rodriguez on 07-05-2025 Protein [Mass/Vol] 6.1 g/dL 5.9-8.4 [facility] White blood cell (WBC) count Ordered By: Angela Rodriguez on 07-05-2025 WBC (Bld) [#/Vol] 9.7 10*3/uL 4.4-11.0 [facility] Gastroenterology Visit Repor ton 07-04-2025 Gastroenterology Visit Report Normal [facility] CT Chest, Abd, Pel w/Contras ton 06-28-2025 CT Chest, Abd, Pel w/Contrast Normal [facility] Absolute lymphocyte countOrd ered By: Lj Piña on 06-15-2025 Lymphocytes Auto (Unsp spec) [#/Vol] 0.98 10*3/uL 0.83-4.51 [facility] Absolute neutrophil countOrd ered By: Lj Piña on 06-15-2025 Neutrophils (Bld) [#/Vol] 4.6 10*3/uL 2.0-7.7 [facility] Anion gap in Serum or Plasma Ordered By: Lj Piña on 06-15-2025 Anion gap [Moles/Vol] 12 mmol/L 5-15 [facility] Automated lymphocyte count a s percentage of total leukocytesOrdered By: Lj Piña on 06-15-2025 Lymphocytes/100 WBC Auto (Unsp spec) 15.1 % Low 19-41 [facility] BUN/creatinine ratioOrdered By: Lj Piña on 06-15-2025 Urea nitrogen/Creatinine [Mass ratio] 22.8 mg/mg High 10-20 [facility] Basophil percentageOrdered B y: Lj Piña on 06-15-2025 Basophils/100 WBC (Bld) 0.6 % 0-1 [facility] Bilirubin, totalOrdered By: Lj Piña on 06-15-2025 Bilirubin [Mass/Vol] 0.38 mg/dL 0.00-1.30 [facility] CBC W/Diff, Automatedon 08 Absolute Lymph 0.98 X10 3/uL Normal 0.83-4.51 [facility] Comment on above: Performed By: #### L 501.2300, L100.0100, L500.4050 ####[facility] [address] [place], [address] Absolute Neut 4.6 X10 3/uL Normal 2.0-7.7 [facility] Comment on above: Performed By: #### L 501.2300, L100.0100, L500.4050 ####[facility] [address] [place], [address] Basophils/100 WBC (Bld) 0.6 % Normal 0-1 [facility] Comment on above: Performed By: #### L 501.2300, L100.0100, L500.4050 ####[facility] [address] [place], [address] Eosinophils/100 WBC (Bld) 1.4 % Normal 0-5 [facility] Comment on above: Performed By: #### L 501.2300, L100.0100, L500.4050 ####[facility] [address] [place], [address] Erythrocyte distribution width (RBC) [Ratio] 17.9 % High 11.6-14.6 [facility] Comment on above: Performed By: #### L 501.2300, L100.0100, L500.4050 ####[facility] [address] [place], [address] Hematocrit (Bld) [Volume fraction] 38.7 % Low 40-54 [facility] Comment on above: Performed By: #### L 501.2300, L100.0100, L500.4050 ####[facility] [address] [place], [address] Hemoglobin (Bld) [Mass/Vol] 12.4 g/dL Low 13.0-16.5 [facility] Comment on above: Performed By: #### L 501.2300, L100.0100, L500.4050 ####[facility] [address] [place], [address] IG% 2.200 High 0.0-0.9 [facility] Comment on above: Result Comment: IG% - Immature Granulocytes (promyelocytes, myelocytes andmetamyelocytes) > 1% indicates that a LEFT SHIFT is Present. Performed By: #### L 501.2300, L100.0100, L500.4050 ####[facility] [address] [place], [address] Lymphocytes/100 WBC (Bld) 15.1 % Low 19-41 [facility] Comment on above: Performed By: #### L 501.2300, L100.0100, L500.4050 ####[facility] [address] [place], [address] MCH (RBC) [Entitic mass] 24.8 pg Low 27.0-32.0 [facility] Comment on above: Performed By: #### L 501.2300, L100.0100, L500.4050 ####[facility] [address] [place], [address] MCHC (RBC) [Mass/Vol] 32.0 g/dL Normal 32-36 [facility] Comment on above: Performed By: #### L 501.2300, L100.0100, L500.4050 ####[facility] [address] [place], [address] MCV (RBC) [Entitic vol] 77.4 fL Low 80-94 [facility] Comment on above: Performed By: #### L 501.2300, L100.0100, L500.4050 ####[facility] [address] [place], [address] Monocytes/100 WBC (Bld) 9.7 % Normal 0-10 [facility] Comment on above: Performed By: #### L 501.2300, L100.0100, L500.4050 ####[facility] [address] [place], [address] Neutrophils/100 WBC (Bld) 71.0 % High 47-70 [facility] Comment on above: Performed By: #### L 501.2300, L100.0100, L500.4050 ####[facility] [address] [place], [address] Nucleated RBC (Bld) [#/Vol] 0 10*3/uL Normal 0-5 [facility] Comment on above: Performed By: #### L 501.2300, L100.0100, L500.4050 ####[facility] [address] [place], [address] Platelet mean volume (Bld) [Entitic vol] 9.1 fL Normal 6.2-12.0 [facility] Comment on above: Performed By: #### L 501.2300, L100.0100, L500.4050 ####[facility] [address] [place], [address] Platelets (Bld) [#/Vol] 142 10*3/uL Low 150-450 [facility] Comment on above: Performed By: #### L 501.2300, L100.0100, L500.4050 ####[facility] [address] [place], [address] RBC (Bld) [#/Vol] 5.00 10*6/uL Normal 4.6-6.2 [facility] Comment on above: Performed By: #### L 501.2300, L100.0100, L500.4050 ####[facility] [address] [place], [address] RDW SD 49.7 fl High 35.1-43.9 [facility] Comment on above: Performed By: #### L 501.2300, L100.0100, L500.4050 ####[facility] [address] [place], [address] WBC (Bld) [#/Vol] 6.5 10*3/uL Normal 4.4-11.0 [facility] Comment on above: Performed By: #### L 501.2300, L100.0100, L500.4050 ####[facility] [address] [place], [address] Carbon dioxide, total [Moles /volume] in Central venous bloodOrdered By: Lj Piña on 06-15-2025 CO2 [Moles/Vol] 19.3 mmol/L Low 21.0-32.0 [facility] Chloride assayOrdered By: Bridgett Piña on 06-15-2025 Chloride [Moles/Vol] 108 mmol/L 98-108 [facility] Comprehensive Metabolic Prof ilon 06-15-2025 Albumin [Mass/Vol] 4.0 g/dL Normal 3.4-4.8 [facility] Comment on above: Performed By: #### L 501.2300, L100.0100, L500.4050 ####[facility] [address] [place], [address] Albumin/Globulin [Mass ratio] 2.2 {ratio} Normal 0.9-2.4 [facility] Comment on above: Performed By: #### L 501.2300, L100.0100, L500.4050 ####[facility] [address] [place], [address] ALK PHOS 49 U/L Normal 40-129 [facility] Comment on above: Performed By: #### L 501.2300, L100.0100, L500.4050 ####[facility] [address] [place], [address] ALT [Catalytic activity/Vol] 15 U/L Normal <=46 [facility] Comment on above: Performed By: #### L 501.2300, L100.0100, L500.4050 ####[facility] [address] [place], [address] AST [Catalytic activity/Vol] 16 U/L Normal <=37 [facility] Comment on above: Performed By: #### L 501.2300, L100.0100, L500.4050 ####[facility] [address] [place], [address] Bilirubin [Mass/Vol] 0.38 mg/dL Normal 0.00-1.30 [facility] Comment on above: Performed By: #### L 501.2300, L100.0100, L500.4050 ####[facility] [address] [place], [address] BUN/CRE 22.8 RATIO High 10-20 [facility] Comment on above: Performed By: #### L 501.2300, L100.0100, L500.4050 ####[facility] [address] [place], [address] Calcium [Mass/Vol] 8.8 mg/dL Normal 7.6-11.0 [facility] Comment on above: Performed By: #### L 501.2300, L100.0100, L500.4050 ####[facility] [address] [place], [address] Chloride [Moles/Vol] 108 mmol/L Normal 98-108 [facility] Comment on above: Performed By: #### L 501.2300, L100.0100, L500.4050 ####[facility] [address] [place], [address] CO2 [Moles/Vol] 19.3 mmol/L Low 21.0-32.0 [facility] Comment on above: Performed By: #### L 501.2300, L100.0100, L500.4050 ####[facility] [address] [place], [address] Creatinine [Mass/Vol] 0.94 mg/dL Normal 0.70-1.20 [facility] Comment on above: Performed By: #### L 501.2300, L100.0100, L500.4050 ####[facility] [address] [place], [address] ECRCL 70.19 ml/min Normal 50-250 [facility] Comment on above: Performed By: #### L 501.2300, L100.0100, L500.4050 ####[facility] [address] [place], [address] GAP 12 Normal 5-15 [facility] Comment on above: Performed By: #### L 501.2300, L100.0100, L500.4050 ####[facility] [address] [place], [address] GFR/1.73 sq M.predicted among non-blacks MDRD (S/P/Bld) [Vol rate/Area] 87 mL/min/{1.73_m2} Normal >60 [facility] Comment on above: Result Comment: mL/m in/1.73m2 CKD-EPI Creatinine Equation (2020) Performed By: #### L 501.2300, L100.0100, L500.4050 ####[facility] [address] [place], [address] Globulin (S) [Mass/Vol] 1.8 g/dL Low 2.2-4.2 [facility] Comment on above: Performed By: #### L 501.2300, L100.0100, L500.4050 ####[facility] [address] [place], [address] Glucose [Mass/Vol] 96 mg/dL Normal 70-99 [facility] Comment on above: Performed By: #### L 501.2300, L100.0100, L500.4050 ####[facility] [address] [place], [address] Potassium [Moles/Vol] 3.9 mmol/L Normal 3.3-5.1 [facility] Comment on above: Performed By: #### L 501.2300, L100.0100, L500.4050 ####[facility] [address] [place], [address] Sodium [Moles/Vol] 140 mmol/L Normal 133-145 [facility] Comment on above: Performed By: #### L 501.2300, L100.0100, L500.4050 ####[facility] [address] [place], [address] T PROT 5.9 g/dL Normal 5.9-8.4 [facility] Comment on above: Performed By: #### L 501.2300, L100.0100, L500.4050 ####[facility] [address] [place], [address] Urea nitrogen [Mass/Vol] 21 mg/dL High 4-19 [facility] Comment on above: Performed By: #### L 501.2300, L100.0100, L500.4050 ####[facility] [address] [place], [place], [address] Eosinophil percentageOrdered By: Lj Piña on 06-15-2025 Eosinophils/100 WBC (Bld) 1.4 % 0-5 [facility] Erythrocyte distribution wid th ratioOrdered By: Lj Piña on 06-15-2025 Erythrocyte distribution width (RBC) [Ratio] 17.9 % High 11.6-14.6 [facility] Erythrocyte distribution wid th standard deviationOrdered By: Lj Piña on 06-15-2025 Erythrocyte distribution width (RBC) [Ratio] 49.7 fl High 35.1-43.9 [facility] Ferritinon 06-15-2025 Ferritin [Mass/Vol] 130 ng/mL Normal 37-417 [facility] Comment on above: Performed By: #### L 509.6001, L503.6030, L501.9520, L503.6550, L506.0400, L501.5200 ####[facility] [address] [place], [address] Glomerular filtration rate ( GFR) estimation/1.73 sq m using serum, plasma, or whole bOrdered By: Lj Piña on 06-15-2025 GFR/1.73 sq M.predicted among non-blacks MDRD (S/P/Bld) [Vol rate/Area] 87 mL/min/{1.73_m2} >60 [facility] Comment on above: mL/min/1.73m2 CKD-EP I Creatinine Equation (2020) Hematocrit Auto (Bld) [Volum e fraction]Ordered By: Lj Piña on 06-15-2025 Hematocrit (Bld) [Volume fraction] 38.7 % Low 40-54 [facility] Hemoglobin measurementOrdere d By: Lj Piña on 06-15-2025 Hemoglobin (Bld) [Mass/Vol] 12.4 g/dL Low 13.0-16.5 [facility] Immature granulocytes/100 WB C Auto (Bld)Ordered By: Lj Piña on 06-15-2025 Immature granulocytes/100 WBC (Bld) 2.200 % High 0.0-0.9 [facility] Comment on above: IG% - Immature Granu locytes (promyelocytes, myelocytes and metamyelocytes) > 1% indicates that a LEFT SHIFT is Present. Iron measurement (mass/mass) Ordered By: Angela Rodriguez on 06-15-2025 Iron (Unsp spec) [Mass/Mass] 42 ug/dL Low 65-175 [facility] Iron+Iron Binding Capacityon 06-15-2025 Iron [Mass/Vol] 42 ug/dL Low 65-175 [facility] Comment on above: Performed By: #### L 509.6001, L503.6030, L501.9520, L503.6550, L506.0400, L501.5200 ####[facility] [address] [facility] [address] IRON SATURATION 14.0 Normal 9-55 [facility] Comment on above: Performed By: #### L 509.6001, L503.6030, L501.9520, L503.6550, L506.0400, L501.5200 ####[facility] [address] [place], [address] TIBC 293 ug/dL Normal 250-450 [facility] Comment on above: Performed By: #### L 509.6001, L503.6030, L501.9520, L503.6550, L506.0400, L501.5200 ####[facility] [address] [facility] [address] UIBC 251 ug/dL Normal 228-428 [facility] Comment on above: Performed By: #### L 509.6001, L503.6030, L501.9520, L503.6550, L506.0400, L501.5200 ####[facility] [address] [place], [address] L509.6001on 06-15-2025 CORTISOL < 0.11 Low 6.02-18.40 [facility] Comment on above: Performed By: #### L 509.6001, L503.6030, L501.9520, L503.6550, L506.0400, L501.5200 ####[facility] [address] [place], [place], [address] Laboratory - Chemistry and C hemistry - challengeOrdered By: Lj Piña on 06-15-2025 AST [Catalytic activity/Vol] 16 U/L <38 [facility] MCV (mean corpuscular volume ) determinationOrdered By: Lj Piña on 06-15-2025 MCV (RBC) [Entitic vol] 77.4 fL Low 80-94 [facility] Magnesiumon 06-15-2025 Magnesium [Mass/Vol] 2.2 mg/dL Normal 1.5-2.2 [facility] Comment on above: Performed By: #### L 509.6001, L503.6030, L501.9520, L503.6550, L506.0400, L501.5200 ####[facility] [address] [place], [place], [id number] Magnesium measurement (mass/ volume)Ordered By: Angela Rodriguez on 06-15-2025 Magnesium (Unsp spec) [Mass/Vol] 2.2 mg/dL 1.5-2.2 [facility] Mean corpuscular hemoglobin (MCH) determinationOrdered By: Lj Piña on 06-15-2025 MCH (RBC) [Entitic mass] 24.8 pg Low 27.0-32.0 [facility] Mean corpuscular hemoglobin concentration (MCHC) determinationOrdered By: Lj Piña on 06-15-2025 MCHC (RBC) [Mass/Vol] 32.0 g/dL 32-36 [facility] Mean platelet volume determi nationOrdered By: Lj Piña on 06-15-2025 Platelet mean volume (Bld) [Entitic vol] 9.1 fL 6.2-12.0 [facility] Monocyte percentageOrdered B y: Lj Piña on 06-15-2025 Monocytes/100 WBC (Bld) 9.7 % 0-10 [facility] Neutrophil percentageOrdered By: Lj Piña on 06-15-2025 Neutrophils/100 WBC (Bld) 71.0 % High 47-70 [facility] No Panel InformationOrdered By: Angela Rodriguez on 06-15-2025 Unsaturated Iron Binding Capacity 251 ug/dL 228-428 [facility] 251 ug/dL 228-428 [facility] No Panel InformationOrdered By: Lj Piña on 06-15-2025 16 U/L <38 [facility] Nucleated red blood cell per centageOrdered By: jL Piña on 06-15-2025 Nucleated RBC/100 WBC (Bld) [Ratio] 0 % 0-5 [facility] Oncology Visit Reporton Oncology Visit Report Normal [facility] Phosphoruson 06-15-2025 Phosphate [Mass/Vol] 3.6 mg/dL Normal 2.7-4.5 [facility] Comment on above: Performed By: #### L 501.2300, L100.0100, L500.4050 ####[facility] [address] [place], [address] Platelet countOrdered By: Bridgett Piña on 06-15-2025 Platelets (Bld) [#/Vol] 142 10*3/uL Low 150-450 [facility] Potassium measurement (mass/ volume)Ordered By: Lj Piña on 06-15-2025 Potassium (Unsp spec) [Mass/Vol] 3.9 mmol/L 3.3-5.1 [facility] RBC Auto (Bld) [#/Vol]Ordere d By: Lj Piña on 06-15-2025 RBC (Bld) [#/Vol] 5.00 10*6/uL 4.6-6.2 [facility] Serum creatinine measurement (mass/volume)Ordered By: Lj Piña on 06-15-2025 Creatinine [Mass/Vol] 0.94 mg/dL 0.70-1.20 [facility] Serum globulin measurementOr dered By: Lj Piña on 06-15-2025 Globulin (S) [Mass/Vol] 1.8 g/dL Low 2.2-4.2 [facility] Serum glucose measurement (m ass/volume)Ordered By: Lj Piña on 06-15-2025 Glucose [Mass/Vol] 96 mg/dL 70-99 [facility] Serum or plasma alanine kong otransferase (ALT) measurementOrdered By: Lj Piña on 06-15-2025 ALT [Catalytic activity/Vol] 15 U/L <47 [facility] Serum or plasma albumin deangelo urement (mass/volume)Ordered By: Lj Piña on 06-15-2025 Albumin [Mass/Vol] 4.0 g/dL 3.4-4.8 [facility] Serum or plasma albumin/glob ulin mass ratioOrdered By: Lj Piña on 06-15-2025 Albumin/Globulin [Mass ratio] 2.2 {ratio} 0.9-2.4 [facility] Serum or plasma alkaline alie sphatase measurementOrdered By: Lj Piña on 06-15-2025 ALP [Catalytic activity/Vol] 49 U/L 40-129 [facility] Serum or plasma calcium deangelo urement (mass/volume)Ordered By: Lj Piña on 06-15-2025 Calcium [Mass/Vol] 8.8 mg/dL 7.6-11.0 [facility] Serum or plasma cortisol samantha surement (mass/volume)Ordered By: Angela Rodriguez on 06-15-2025 Cortisol [Mass/Vol] ug/dL Low 6.02-18.40 [facility] Serum or plasma ferritin samantha surement (mass/volume)Ordered By: Angela Rodriguez on 06-15-2025 Ferritin [Mass/Vol] 130 ng/mL 37-417 [facility] Serum or plasma iron saturat ion measurement (mass fraction)Ordered By: Angela Rodriguez on 06-15-2025 Iron saturation [Mass fraction] 14.0 % 9-55 [facility] Serum or plasma urea nitroge n measurement (mass/volume)Ordered By: Lj Piña on 06-15-2025 Urea nitrogen [Mass/Vol] 21 mg/dL High 4-19 [facility] Sodium levelOrdered By: Santino Piña on 06-15-2025 Sodium [Moles/Vol] 140 mmol/L 133-145 [facility] T4 Free Directon 06-15-2025 T4 FREE DIRECT 1.40 ng/dL Normal 0.76-1.46 [facility] Comment on above: Performed By: #### L 509.6001, L503.6030, L501.9520, L503.6550, L506.0400, L501.5200 ####[facility] [address] [place], [place], [id number] T4 freeOrdered By: Angela goff on 06-15-2025 Free T4 [Mass/Vol] 1.40 ng/dL 0.76-1.46 [facility] TSH DL <= 0.005 mIU/L QnOrde red By: Angela Rodriguez on 06-15-2025 TSH Qn 2.330 uIU/mL 0.300-4.200 [facility] Thyroid Stim Hormone (TSH)on 06-15-2025 TSH 2.330 uIU/mL Normal 0.300-4.200 [facility] Comment on above: Performed By: #### L 509.6001, L503.6030, L501.9520, L503.6550, L506.0400, L501.5200 ####[facility] [address] [place], [place], [id number] Total proteinOrdered By: Steven Piña on 06-15-2025 Protein [Mass/Vol] 5.9 g/dL 5.9-8.4 [facility] White blood cell (WBC) count Ordered By: Lj Piña on 06-15-2025 WBC (Bld) [#/Vol] 6.5 10*3/uL 4.4-11.0 [facility] Pulmonary Visit Reporton Pulmonary Visit Report Normal [facility] Absolute lymphocyte countOrd ered By: Angela Rodriguez on 05-24-2025 Lymphocytes Auto (Unsp spec) [#/Vol] 0.99 10*3/uL 0.83-4.51 [facility] Absolute neutrophil countOrd ered By: Angela Rodriguez on 05-24-2025 Neutrophils (Bld) [#/Vol] 4.4 10*3/uL 2.0-7.7 [facility] Anion gap in Serum or Plasma Ordered By: Jackietonny Rodriguez on 05-24-2025 Anion gap [Moles/Vol] 11 mmol/L 5-15 [facility] Automated lymphocyte count a s percentage of total leukocytesOrdered By: Jackietonny Rodriguez on 05-24-2025 Lymphocytes/100 WBC Auto (Unsp spec) 16.1 % Low 19-41 [facility] BUN/creatinine ratioOrdered By: [facility] Michael on 05-24-2025 Urea nitrogen/Creatinine [Mass ratio] 16.5 mg/mg 10- [facility] Basophil percentageOrdered B y: Angela Rodriguez on 05-24-2025 Basophils/100 WBC (Bld) 0.5 % 0- [facility] Bilirubin, totalOrdered By: [facility] on 05-24-2025 Bilirubin [Mass/Vol] 0.35 mg/dL 0.00-1.30 [facility] CBC W/Diff, Automatedon 05-09 Absolute Lymph 0.99 X10 3/uL Normal 0.83-4.51 [facility] Comment on above: Performed By: #### L 501.2300, L100.0100, L500.4050 ####[facility] [address] [place], [address] Absolute Neut 4.4 X10 3/uL Normal 2.0-7.7 [facility] Comment on above: Performed By: #### L 501.2300, L100.0100, L500.4050 ####[facility] [address] [place], [address] Basophils/100 WBC (Bld) 0.5 % Normal 0-1 [facility] Comment on above: Performed By: #### L 501.2300, L100.0100, L500.4050 ####[facility] [address] [place], [address] Eosinophils/100 WBC (Bld) 1.3 % Normal 0-5 [facility] Comment on above: Performed By: #### L 501.2300, L100.0100, L500.4050 ####[facility] [address] [place], [address] Erythrocyte distribution width (RBC) [Ratio] 18.6 % High 11.6-14.6 [facility] Comment on above: Performed By: #### L 501.2300, L100.0100, L500.4050 ####[facility] [address] [place], [address] Hematocrit (Bld) [Volume fraction] 36.1 % Low 40-54 [facility] Comment on above: Performed By: #### L 501.2300, L100.0100, L500.4050 ####[facility] [address] [place], [address] Hemoglobin (Bld) [Mass/Vol] 11.6 g/dL Low 13.0-16.5 [facility] Comment on above: Performed By: #### L 501.2300, L100.0100, L500.4050 ####[facility] [address] [place], [address] IG% 1.900 High 0.0-0.9 [facility] Comment on above: Result Comment: IG% - Immature Granulocytes (promyelocytes, myelocytes andmetamyelocytes) > 1% indicates that a LEFT SHIFT is Present. Performed By: #### L 501.2300, L100.0100, L500.4050 ####[facility] [address] [place], [address] Lymphocytes/100 WBC (Bld) 16.1 % Low 19-41 [facility] Comment on above: Performed By: #### L 501.2300, L100.0100, L500.4050 ####[facility] [address] [place], [address] MCH (RBC) [Entitic mass] 24.8 pg Low 27.0-32.0 [facility] Comment on above: Performed By: #### L 501.2300, L100.0100, L500.4050 ####[facility] [address] [place], [address] MCHC (RBC) [Mass/Vol] 32.1 g/dL Normal 32-36 [facility] Comment on above: Performed By: #### L 501.2300, L100.0100, L500.4050 ####[facility] [address] [place], [address] MCV (RBC) [Entitic vol] 77.3 fL Low 80-94 [facility] Comment on above: Performed By: #### L 501.2300, L100.0100, L500.4050 ####[facility] [address] [place], [address] Monocytes/100 WBC (Bld) 9.1 % Normal 0-10 [facility] Comment on above: Performed By: #### L 501.2300, L100.0100, L500.4050 ####[facility] [address] [place], [address] Neutrophils/100 WBC (Bld) 71.1 % High 47-70 [facility] Comment on above: Performed By: #### L 501.2300, L100.0100, L500.4050 ####[facility] [address] [place], [address] Nucleated RBC (Bld) [#/Vol] 0 10*3/uL Normal 0-5 [facility] Comment on above: Performed By: #### L 501.2300, L100.0100, L500.4050 ####[facility] [address] [place], [address] Platelet mean volume (Bld) [Entitic vol] 9.5 fL Normal 6.2-12.0 [facility] Comment on above: Performed By: #### L 501.2300, L100.0100, L500.4050 ####[facility] [address] [place], [address] Platelets (Bld) [#/Vol] 127 10*3/uL Low 150-450 [facility] Comment on above: Performed By: #### L 501.2300, L100.0100, L500.4050 ####[facility] [address] [place], [address] RBC (Bld) [#/Vol] 4.67 10*6/uL Normal 4.6-6.2 [facility] Comment on above: Performed By: #### L 501.2300, L100.0100, L500.4050 ####[facility] [address] [place], [address] RDW SD 52.0 fl High 35.1-43.9 [facility] Comment on above: Performed By: #### L 501.2300, L100.0100, L500.4050 ####[facility] [address] [place], [address] WBC (Bld) [#/Vol] 6.2 10*3/uL Normal 4.4-11.0 [facility] Comment on above: Performed By: #### L 501.2300, L100.0100, L500.4050 ####[facility] [address] [place], [address] Carbon dioxide, total [Moles /volume] in Central venous bloodOrdered By: Angela Rodriguez on 05-24-2025 CO2 [Moles/Vol] 19.8 mmol/L Low 21.0-32.0 [facility] Chloride assayOrdered By: Ivonne Rodriguez on 05-24-2025 Chloride [Moles/Vol] 108 mmol/L 98-108 [facility] Comprehensive Metabolic Prof ilon 05-24-2025 Albumin [Mass/Vol] 3.6 g/dL Normal 3.4-4.8 [facility] Comment on above: Performed By: #### L 501.2300, L100.0100, L500.4050 ####[facility] [address] [place], [address] Albumin/Globulin [Mass ratio] 1.9 {ratio} Normal 0.9-2.4 [facility] Comment on above: Performed By: #### L 501.2300, L100.0100, L500.4050 ####[facility] [address] [place], [address] ALK PHOS 51 U/L Normal 40-129 [facility] Comment on above: Performed By: #### L 501.2300, L100.0100, L500.4050 ####[facility] [address] [place], [address] ALT [Catalytic activity/Vol] 14 U/L Normal <=46 [facility] Comment on above: Performed By: #### L 501.2300, L100.0100, L500.4050 ####[facility] [address] [place], [address] AST [Catalytic activity/Vol] 15 U/L Normal <=37 [facility] Comment on above: Performed By: #### L 501.2300, L100.0100, L500.4050 ####[facility] [address] [place], [address] Bilirubin [Mass/Vol] 0.35 mg/dL Normal 0.00-1.30 [facility] Comment on above: Performed By: #### L 501.2300, L100.0100, L500.4050 ####[facility] [address] [place], [address] BUN/CRE 16.5 RATIO Normal 10-20 [facility] Comment on above: Performed By: #### L 501.2300, L100.0100, L500.4050 ####[facility] [address] [place], [address] Calcium [Mass/Vol] 8.6 mg/dL Normal 7.6-11.0 [facility] Comment on above: Performed By: #### L 501.2300, L100.0100, L500.4050 ####[facility] [address] [place], [address] Chloride [Moles/Vol] 108 mmol/L Normal 98-108 [facility] Comment on above: Performed By: #### L 501.2300, L100.0100, L500.4050 ####[facility] [address] [place], [address] CO2 [Moles/Vol] 19.8 mmol/L Low 21.0-32.0 [facility] Comment on above: Performed By: #### L 501.2300, L100.0100, L500.4050 ####[facility] [address] [place], [address] Creatinine [Mass/Vol] 0.91 mg/dL Normal 0.70-1.20 [facility] Comment on above: Performed By: #### L 501.2300, L100.0100, L500.4050 ####[facility] [address] [place], [address] ECRCL 72.75 ml/min Normal 50-250 [facility] Comment on above: Performed By: #### L 501.2300, L100.0100, L500.4050 ####[facility] [address] [place], [address] GAP 11 Normal 5-15 [facility] Comment on above: Performed By: #### L 501.2300, L100.0100, L500.4050 ####[facility] [address] [place], [address] GFR/1.73 sq M.predicted among non-blacks MDRD (S/P/Bld) [Vol rate/Area] 90 mL/min/{1.73_m2} Normal >60 [facility] Comment on above: Result Comment: mL/m in/1.73m2 CKD-EPI Creatinine Equation (2020) Performed By: #### L 501.2300, L100.0100, L500.4050 ####[facility] [address] [place], [address] Globulin (S) [Mass/Vol] 1.9 g/dL Low 2.2-4.2 [facility] Comment on above: Performed By: #### L 501.2300, L100.0100, L500.4050 ####[facility] [address] [place], [address] Glucose [Mass/Vol] 103 mg/dL High 70-99 [facility] Comment on above: Performed By: #### L 501.2300, L100.0100, L500.4050 ####[facility] [address] [place], [address] Potassium [Moles/Vol] 3.6 mmol/L Normal 3.3-5.1 [facility] Comment on above: Performed By: #### L 501.2300, L100.0100, L500.4050 ####[facility] [address] [place], [address] Sodium [Moles/Vol] 139 mmol/L Normal 133-145 [facility] Comment on above: Performed By: #### L 501.2300, L100.0100, L500.4050 ####[facility] [address] [place], [address] T PROT 5.5 g/dL Low 5.9-8.4 [facility] Comment on above: Performed By: #### L 501.2300, L100.0100, L500.4050 ####[facility] [address] [place], [address] Urea nitrogen [Mass/Vol] 15 mg/dL Normal 4-19 [facility] Comment on above: Performed By: #### L 501.2300, L100.0100, L500.4050 ####[facility] [address] [place], [address] Eosinophil percentageOrdered By: Angela Rodriguez on 05-24-2025 Eosinophils/100 WBC (Bld) 1.3 % 0-5 [facility] Erythrocyte distribution wid th ratioOrdered By: Angela Rodriguez on 05-24-2025 Erythrocyte distribution width (RBC) [Ratio] 18.6 % High 11.6-14.6 [facility] Erythrocyte distribution wid th standard deviationOrdered By: [facility] Rodriguez on 05-24-2025 Erythrocyte distribution width (RBC) [Ratio] 52.0 fl High 35.1-43.9 [facility] Glomerular filtration rate ( GFR) estimation/1.73 sq m using serum, plasma, or whole bOrdered By: Angela Rodriguez on 05-24-2025 GFR/1.73 sq M.predicted among non-blacks MDRD (S/P/Bld) [Vol rate/Area] 90 mL/min/{1.73_m2} >60 [facility] Comment on above: mL/min/1.73m2 CKD-EP I Creatinine Equation (2020) Hematocrit Auto (Bld) [Volum e fraction]Ordered By: Angela Rodriguez on 05-24-2025 Hematocrit (Bld) [Volume fraction] 36.1 % Low 40-54 [facility] Hemoglobin measurementOrdere d By: Angela Rodriguez on 05-24-2025 Hemoglobin (Bld) [Mass/Vol] 11.6 g/dL Low 13.0-16.5 [facility] Immature granulocytes/100 WB C Auto (Bld)Ordered By: Angela Rodriguez on 05-24-2025 Immature granulocytes/100 WBC (Bld) 1.900 % High 0.0-0.9 [facility] Comment on above: IG% - Immature Granu locytes (promyelocytes, myelocytes and metamyelocytes) > 1% indicates that a LEFT SHIFT is Present. Laboratory - Chemistry and C hemistry - challengeOrdered By: Angela Rodriguez on 05-24-2025 AST [Catalytic activity/Vol] 15 U/L <38 [facility] MCV (mean corpuscular volume ) determinationOrdered By: [facility] Rodriguez on 05-24-2025 MCV (RBC) [Entitic vol] 77.3 fL Low 80-94 [facility] Mean corpuscular hemoglobin (MCH) determinationOrdered By: [facility] Rodriguez on 05-24-2025 MCH (RBC) [Entitic mass] 24.8 pg Low 27.0-32.0 [facility] Mean corpuscular hemoglobin concentration (MCHC) determinationOrdered By: Angela Rodriguez on 05-24-2025 MCHC (RBC) [Mass/Vol] 32.1 g/dL 32-36 [facility] Mean platelet volume determi nationOrdered By: Angela Rodriguez on 05-24-2025 Platelet mean volume (Bld) [Entitic vol] 9.5 fL 6.2-12.0 [facility] Monocyte percentageOrdered B y: Angela Rodriguez on 05-24-2025 Monocytes/100 WBC (Bld) 9.1 % 0-10 [facility] Neutrophil percentageOrdered By: [facility] Rodriguez on 05-24-2025 Neutrophils/100 WBC (Bld) 71.1 % High 47-70 [facility] Nucleated red blood cell per centageOrdered By: [facility] on 05-24-2025 Nucleated RBC/100 WBC (Bld) [Ratio] 0 % 0-5 [facility] Oncology Visit Reporton 05-09 Oncology Visit Report Normal [facility] Phosphoruson 05-24-2025 Phosphate [Mass/Vol] 3.8 mg/dL Normal 2.7-4.5 [facility] Comment on above: Performed By: #### L 501.2300, L100.0100, L500.4050 ####[facility] [address] [place], [place], [address] Platelet countOrdered By: Ivonne Rodriguez on 05-24-2025 Platelets (Bld) [#/Vol] 127 10*3/uL Low 150-450 [facility] Potassium measurement (mass/ volume)Ordered By: Angela Rodriguez on 05-24-2025 Potassium (Unsp spec) [Mass/Vol] 3.6 mmol/L 3.3-5.1 [facility] RBC Auto (Bld) [#/Vol]Ordere d By: Angela Rodriguez on 05-24-2025 RBC (Bld) [#/Vol] 4.67 10*6/uL 4.6-6.2 [facility] Serum creatinine measurement (mass/volume)Ordered By: Angela Rodriguez on 05-24-2025 Creatinine [Mass/Vol] 0.91 mg/dL 0.70-1.20 [facility] Serum globulin measurementOr dered By: Angela Rodriguez on 05-24-2025 Globulin (S) [Mass/Vol] 1.9 g/dL Low 2.2-4.2 [facility] Serum glucose measurement (m ass/volume)Ordered By: Angela Rodriguez on 05-24-2025 Glucose [Mass/Vol] 103 mg/dL High 70-99 [facility] Serum or plasma alanine kong otransferase (ALT) measurementOrdered By: Angela Rodriguez on 05-24-2025 ALT [Catalytic activity/Vol] 14 U/L <47 [facility] Serum or plasma albumin deangelo urement (mass/volume)Ordered By: Angela Rodriguez on 05-24-2025 Albumin [Mass/Vol] 3.6 g/dL 3.4-4.8 [facility] Serum or plasma albumin/glob ulin mass ratioOrdered By: Angela Rodriguez on 05-24-2025 Albumin/Globulin [Mass ratio] 1.9 {ratio} 0.9-2.4 [facility] Serum or plasma alkaline alie sphatase measurementOrdered By: Angela Michael on 05-24-2025 ALP [Catalytic activity/Vol] 51 U/L 40-129 [facility] Serum or plasma calcium deangelo urement (mass/volume)Ordered By: Angela Michael on 05-24-2025 Calcium [Mass/Vol] 8.6 mg/dL 7.6-11.0 [facility] Serum or plasma urea nitroge n measurement (mass/volume)Ordered By: Angela Michael on 05-24-2025 Urea nitrogen [Mass/Vol] 15 mg/dL 4-19 [facility] Sodium levelOrdered By: Jackie lancaster Michael on 05-24-2025 Sodium [Moles/Vol] 139 mmol/L 133-145 [facility] Total proteinOrdered By: Antoni apodaca Michael on 05-24-2025 Protein [Mass/Vol] 5.5 g/dL Low 5.9-8.4 [facility] White blood cell (WBC) count Ordered By: Angela Michael on 05-24-2025 WBC (Bld) [#/Vol] 6.2 10*3/uL 4.4-11.0 [facility] CNOVon 05-23-2025 CNOV Office Visit (NEAGCL M) ----- ARSHADKENN SR. ([id number]) 1955 M Date Time Provider Department 05/23/25 11:00 AM FRANCOIS ACEVEDO NEAGCLM During your visit today, we recorded the following information about you: Pulse Respiration Blood pressure Weight 70/minute 16/minute 128/70 80.3 kg Height 1.651 m Francois Acevedo MD 05/23/2025 11:02 AM Signed NEUROSURGERY FOLLOW UP OFFICE NOTE Dr. Francois Acevedo MD, [facility] Date of visit: May 23, 2025 Patient Name: Mr.Larry Linda Arshad . Date of : 1955 Current Age: [age] year old Sex: male MRN/E# [id number] Last Office Visit: November 18, 2024 CHIEF [...] SRS (SBRT) to the metastatic lesion at [place]. Two months following treatment MRI was completed [...] weeks Radiation/ Oncology - Dr. Percy Tao ([place]) PAIN EVALUATION No data found in the last 1 encounters. PAST MEDICAL HISTORY Diagnosis Date Coronary artery disease Stents History of colon polyps Hypertension Skin cancer PAST SURGICAL HISTORY Procedure Laterality Date COLONOSCOPY 02/21/2019 Tubular adenoma rectum EGD 12/18/2021 marked villious blunting (more content not included)... Normal [facility] MR Brain WO and W contrast I Von 05-18-2025 IMPRESSION: Continued interval decrease in size of LEFT periatrial enhancing mass with persistent peripheral elevated cerebral blood volume compatible with residual viable neoplasm. Slight interval increase in confluent nonenhancing perilesional T2/FLAIR hyperintensity in the LEFT perirolandic region, possibly evolving posttreatment change. Trust Officer: FLAVIO Transcribe Date/Time: May 18 2025 12:57P Dictated by : EM NICOLE MD This examination was interpreted and the report reviewed and electronically signed by: EM NICOLE MD on May 18 2025 1:12PM [facility] DIVISION OF RADIOLOGY * * *Final [...] within normal limits. DIVISION OF RADIOLOGY Provider, [facility] - 05/18/2025 * * *Final Report* * * DATE OF EXAM: May 18 2025 11:35AM [facility] 0295 - MRI BRAIN WO/W IVCON [...] LEFT perirolandic region, possibly evolving posttreatment change. Trust Officer: PSCB Transcribe Date/Time: May 18 2025 12:57P Dictated by : ME NICOLE MD This examination was interpreted and the report reviewed and electronically signed by: EM NICOLE MD on May 18 2025 1:12PM EST [facility] Radiology Study observation (narrative) [facility] MR Brain WO and W contrast I VOrdered By: Ccf Provider on 05-18-2025 [facility] MRI BRAIN WO/W IVCONon 05-18 MRI BRAIN WO/W IVCON * * *Final Report* * * DATE OF EXAM: May 18 2025 11:35AM [facility] 0295 - MRI BRAIN WO/W IVCON [...] LEFT perirolandic region, possibly evolving posttreatment change. Trust Officer: FLAVIO Transcribe Date/Time: May 18 2025 12:57P Dictated by : EM NICOLE MD This examination was interpreted and the report reviewed and electronically signed by: EM NICOLE MD on May 18 2025 1:12PM EST [id number] Normal [facility] Absolute lymphocyte countOrd ered By: Angela Rodriguez on 05-02-2025 Lymphocytes Auto (Unsp spec) [#/Vol] 0.91 10*3/uL 0.83-4.51 [facility] Anion gap in Serum or Plasma Ordered By: Angela Rodriguez on 05-02-2025 Anion gap [Moles/Vol] 12 mmol/L 5-15 [facility] Automated lymphocyte count a s percentage of total leukocytesOrdered By: Angela Rodriguez on 05-02-2025 Lymphocytes/100 WBC Auto (Unsp spec) 15.4 % Low 19-41 [facility] BUN/creatinine ratioOrdered By: [facility] Rodriguez on 05-02-2025 Urea nitrogen/Creatinine [Mass ratio] 17.9 mg/mg 10-20 [facility] Basophil percentageOrdered B y: Angela Rodriguez on 05-02-2025 Basophils/100 WBC (Bld) 1.2 % High 0-1 [facility] Bilirubin, totalOrdered By: Angela Rodriguez on 05-02-2025 Bilirubin [Mass/Vol] 0.30 mg/dL 0.00-1.30 [facility] CBC W/Diff, Automatedon 04-10 Absolute Lymph 0.91 X10 3/uL Normal 0.83-4.51 [facility] Comment on above: Performed By: #### L 503.6030, L503.6550, L100.0100, L501.5200, L501.2300, L500.4050 ####[facility] [address] [place], [address] Absolute Neut 3.9 X10 3/uL Normal 2.0-7.7 [facility] Comment on above: Performed By: #### L 503.6030, L503.6550, L100.0100, L501.5200, L501.2300, L500.4050 ####[facility] [address] [place], [address] Basophils/100 WBC (Bld) 1.2 % High 0-1 [facility] Comment on above: Performed By: #### L 503.6030, L503.6550, L100.0100, L501.5200, L501.2300, L500.4050 ####[facility] [address] [place], [address] Eosinophils/100 WBC (Bld) 1.0 % Normal 0-5 [facility] Comment on above: Performed By: #### L 503.6030, L503.6550, L100.0100, L501.5200, L501.2300, L500.4050 ####[facility] [address] [place], [address] Erythrocyte distribution width (RBC) [Ratio] 18.6 % High 11.6-14.6 [facility] Comment on above: Performed By: #### L 503.6030, L503.6550, L100.0100, L501.5200, L501.2300, L500.4050 ####[facility] [address] [place], [address] Hematocrit (Bld) [Volume fraction] 34.8 % Low 40-54 [facility] Comment on above: Performed By: #### L 503.6030, L503.6550, L100.0100, L501.5200, L501.2300, L500.4050 ####[facility] [address] [place], [address] Hemoglobin (Bld) [Mass/Vol] 11.2 g/dL Low 13.0-16.5 [facility] Comment on above: Performed By: #### L 503.6030, L503.6550, L100.0100, L501.5200, L501.2300, L500.4050 ####[facility] [address] [place], [address] IG% 4.600 High 0.0-0.9 [facility] Comment on above: Result Comment: IG% - Immature Granulocytes (promyelocytes, myelocytes andmetamyelocytes) > 1% indicates that a LEFT SHIFT is Present. Performed By: #### L 503.6030, L503.6550, L100.0100, L501.5200, L501.2300, L500.4050 ####[facility] [address] [place], [address] Lymphocytes/100 WBC (Bld) 15.4 % Low 19-41 [facility] Comment on above: Performed By: #### L 503.6030, L503.6550, L100.0100, L501.5200, L501.2300, L500.4050 ####[facility] [address] [place], [address] MCH (RBC) [Entitic mass] 25.1 pg Low 27.0-32.0 [facility] Comment on above: Performed By: #### L 503.6030, L503.6550, L100.0100, L501.5200, L501.2300, L500.4050 ####[facility] [address] [place], [address] MCHC (RBC) [Mass/Vol] 32.2 g/dL Normal 32-36 [facility] Comment on above: Performed By: #### L 503.6030, L503.6550, L100.0100, L501.5200, L501.2300, L500.4050 ####[facility] [address] [place], [address] MCV (RBC) [Entitic vol] 78.0 fL Low 80-94 [facility] Comment on above: Performed By: #### L 503.6030, L503.6550, L100.0100, L501.5200, L501.2300, L500.4050 ####[facility] [address] [place], [address] Monocytes/100 WBC (Bld) 12.3 % High 0-10 [facility] Comment on above: Performed By: #### L 503.6030, L503.6550, L100.0100, L501.5200, L501.2300, L500.4050 ####[facility] [address] [place], [address] Neutrophils/100 WBC (Bld) 65.5 % Normal 47-70 [facility] Comment on above: Performed By: #### L 503.6030, L503.6550, L100.0100, L501.5200, L501.2300, L500.4050 ####[facility] [address] [place], [address] Nucleated RBC (Bld) [#/Vol] 0 10*3/uL Normal 0-5 [facility] Comment on above: Performed By: #### L 503.6030, L503.6550, L100.0100, L501.5200, L501.2300, L500.4050 ####[facility] [address] [place], [address] Platelet mean volume (Bld) [Entitic vol] 9.1 fL Normal 6.2-12.0 [facility] Comment on above: Performed By: #### L 503.6030, L503.6550, L100.0100, L501.5200, L501.2300, L500.4050 ####[facility] [address] [place], [address] Platelets (Bld) [#/Vol] 172 10*3/uL Normal 150-450 [facility] Comment on above: Performed By: #### L 503.6030, L503.6550, L100.0100, L501.5200, L501.2300, L500.4050 ####[facility] [address] [place], [address] RBC (Bld) [#/Vol] 4.46 10*6/uL Low 4.6-6.2 [facility] Comment on above: Performed By: #### L 503.6030, L503.6550, L100.0100, L501.5200, L501.2300, L500.4050 ####[facility] [address] [place], [address] RDW SD 52.1 fl High 35.1-43.9 [facility] Comment on above: Performed By: #### L 503.6030, L503.6550, L100.0100, L501.5200, L501.2300, L500.4050 ####[facility] [address] [place], [address] WBC (Bld) [#/Vol] 5.9 10*3/uL Normal 4.4-11.0 [facility] Comment on above: Performed By: #### L 503.6030, L503.6550, L100.0100, L501.5200, L501.2300, L500.4050 ####[facility] [address] [place], [address] Absolute Neut Normal 2.0-7.7 [facility] Comment on above: Result Comment: DUPL ICATE ORDER Performed By: #### L 100.0100, L500.4050 ####[facility] [address] [place], [address] HCT Normal 40-54 [facility] Comment on above: Result Comment: DUPL ICATE ORDER Performed By: #### L 100.0100, L500.4050 ####[facility] [address] [place], [address] HGB Normal 13.0-16.5 [facility] Comment on above: Result Comment: DUPL ICATE ORDER Performed By: #### L 100.0100, L500.4050 ####[facility] [address] [place], [address] MCH Normal 27.0-32.0 [facility] Comment on above: Result Comment: DUPL ICATE ORDER Performed By: #### L 100.0100, L500.4050 ####[facility] [address] [place], [address] MCHC Normal 32-36 [facility] Comment on above: Result Comment: DUPL ICATE ORDER Performed By: #### L 100.0100, L500.4050 ####[facility] [address] [place], [address] MCV Normal 80-94 [facility] Comment on above: Result Comment: DUPL ICATE ORDER Performed By: #### L 100.0100, L500.4050 ####[facility] [address] [place], [address] NEUT% Normal 47-70 [facility] Comment on above: Result Comment: DUPL ICATE ORDER Performed By: #### L 100.0100, L500.4050 ####[facility] [address] [place], [address] PLT Normal 150-450 [facility] Comment on above: Result Comment: DUPL ICATE ORDER Performed By: #### L 100.0100, L500.4050 ####[facility] [address] [place], [address] RBC Normal 4.6-6.2 [facility] Comment on above: Result Comment: DUPL ICATE ORDER Performed By: #### L 100.0100, L500.4050 ####[facility] [address] [place], [address] RDW CV Normal 11.6-14.6 [facility] Comment on above: Result Comment: DUPL ICATE ORDER Performed By: #### L 100.0100, L500.4050 ####[facility] [address] [place], [address] RDW SD Normal 35.1-43.9 [facility] Comment on above: Result Comment: DUPL ICATE ORDER Performed By: #### L 100.0100, L500.4050 ####[facility] [address] [place], [address] WBC Normal 4.4-11.0 [facility] Comment on above: Result Comment: DUPL ICATE ORDER Performed By: #### L 100.0100, L500.4050 ####[facility] [address] [place], [address] Carbon dioxide, total [Moles /volume] in Central venous bloodOrdered By: Angela Rodriguez on 05-02-2025 CO2 [Moles/Vol] 17.6 mmol/L Low 21.0-32.0 [facility] Chloride assayOrdered By: Ivonne Rodriguez on 05-02-2025 Chloride [Moles/Vol] 109 mmol/L High 98-108 [facility] Comprehensive Metabolic Prof ilon 05-02-2025 Albumin [Mass/Vol] 3.4 g/dL Normal 3.4-4.8 [facility] Comment on above: Performed By: #### L 503.6030, L503.6550, L100.0100, L501.5200, L501.2300, L500.4050 ####[facility] [address] [place], [address] Albumin/Globulin [Mass ratio] 1.9 {ratio} Normal 0.9-2.4 [facility] Comment on above: Performed By: #### L 503.6030, L503.6550, L100.0100, L501.5200, L501.2300, L500.4050 ####[facility] [address] [place], [address] ALK PHOS 46 U/L Normal 40-129 [facility] Comment on above: Performed By: #### L 503.6030, L503.6550, L100.0100, L501.5200, L501.2300, L500.4050 ####[facility] [address] [place], [address] ALT [Catalytic activity/Vol] 13 U/L Normal <=46 [facility] Comment on above: Performed By: #### L 503.6030, L503.6550, L100.0100, L501.5200, L501.2300, L500.4050 ####[facility] [address] [place], [address] AST [Catalytic activity/Vol] 16 U/L Normal <=37 [facility] Comment on above: Performed By: #### L 503.6030, L503.6550, L100.0100, L501.5200, L501.2300, L500.4050 ####[facility] [address] [place], [address] Bilirubin [Mass/Vol] 0.30 mg/dL Normal 0.00-1.30 [facility] Comment on above: Performed By: #### L 503.6030, L503.6550, L100.0100, L501.5200, L501.2300, L500.4050 ####[facility] [address] [place], [address] BUN/CRE 17.9 RATIO Normal 10-20 [facility] Comment on above: Performed By: #### L 503.6030, L503.6550, L100.0100, L501.5200, L501.2300, L500.4050 ####[facility] [address] [place], [address] Calcium [Mass/Vol] 8.5 mg/dL Normal 7.6-11.0 [facility] Comment on above: Performed By: #### L 503.6030, L503.6550, L100.0100, L501.5200, L501.2300, L500.4050 ####[facility] [address] [place], [address] Chloride [Moles/Vol] 109 mmol/L High 98-108 [facility] Comment on above: Performed By: #### L 503.6030, L503.6550, L100.0100, L501.5200, L501.2300, L500.4050 ####[facility] [address] [place], [address] CO2 [Moles/Vol] 17.6 mmol/L Low 21.0-32.0 [facility] Comment on above: Performed By: #### L 503.6030, L503.6550, L100.0100, L501.5200, L501.2300, L500.4050 ####[facility] [address] [place], [address] Creatinine [Mass/Vol] 0.85 mg/dL Normal 0.70-1.20 [facility] Comment on above: Performed By: #### L 503.6030, L503.6550, L100.0100, L501.5200, L501.2300, L500.4050 ####[facility] [address] [place], [address] ECRCL 76.58 ml/min Normal 50-250 [facility] Comment on above: Performed By: #### L 503.6030, L503.6550, L100.0100, L501.5200, L501.2300, L500.4050 ####[facility] [address] [place], [address] GAP 12 Normal 5-15 [facility] Comment on above: Performed By: #### L 503.6030, L503.6550, L100.0100, L501.5200, L501.2300, L500.4050 ####[facility] [address] [place], [address] GFR/1.73 sq M.predicted among non-blacks MDRD (S/P/Bld) [Vol rate/Area] 93 mL/min/{1.73_m2} Normal >60 [facility] Comment on above: Result Comment: mL/m in/1.73m2 CKD-EPI Creatinine Equation (2020) Performed By: #### L 503.6030, L503.6550, L100.0100, L501.5200, L501.2300, L500.4050 ####[facility] [address] [place], [address] Globulin (S) [Mass/Vol] 1.9 g/dL Low 2.2-4.2 [facility] Comment on above: Performed By: #### L 503.6030, L503.6550, L100.0100, L501.5200, L501.2300, L500.4050 ####[facility] [address] [place], [address] Glucose [Mass/Vol] 105 mg/dL High 70-99 [facility] Comment on above: Performed By: #### L 503.6030, L503.6550, L100.0100, L501.5200, L501.2300, L500.4050 ####[facility] [address] [place], [address] Potassium [Moles/Vol] 3.2 mmol/L Low 3.3-5.1 [facility] Comment on above: Performed By: #### L 503.6030, L503.6550, L100.0100, L501.5200, L501.2300, L500.4050 ####[facility] [address] [place], [address] Sodium [Moles/Vol] 138 mmol/L Normal 133-145 [facility] Comment on above: Performed By: #### L 503.6030, L503.6550, L100.0100, L501.5200, L501.2300, L500.4050 ####[facility] [address] [place], [address] T PROT 5.3 g/dL Low 5.9-8.4 [facility] Comment on above: Performed By: #### L 503.6030, L503.6550, L100.0100, L501.5200, L501.2300, L500.4050 ####[facility] [address] [place], [address] Urea nitrogen [Mass/Vol] 15 mg/dL Normal 4-19 [facility] Comment on above: Performed By: #### L 503.6030, L503.6550, L100.0100, L501.5200, L501.2300, L500.4050 ####[facility] [address] [place], [address] ALB Normal 3.4-4.8 [facility] Comment on above: Result Comment: DUPL ICATE ORDER Performed By: #### L 100.0100, L500.4050 ####[facility] [address] [place], [address] ALK PHOS Normal 40-129 [facility] Comment on above: Result Comment: DUPL ICATE ORDER Performed By: #### L 100.0100, L500.4050 ####[facility] [address] [place], [address] ALT Normal <=46 [facility] Comment on above: Result Comment: DUPL ICATE ORDER Performed By: #### L 100.0100, L500.4050 ####[facility] [address] [place], [address] AST Normal <=37 [facility] Comment on above: Result Comment: DUPL ICATE ORDER Performed By: #### L 100.0100, L500.4050 ####[facility] [address] [place], [address] BUN Normal 4-19 [facility] Comment on above: Result Comment: DUPL ICATE ORDER Performed By: #### L 100.0100, L500.4050 ####[facility] [address] [place], [address] BUN/CRE Normal 10-20 [facility] Comment on above: Result Comment: DUPL ICATE ORDER Performed By: #### L 100.0100, L500.4050 ####[facility] [address] [place], [address] Calcium Normal 7.6-11.0 [facility] Comment on above: Result Comment: DUPL ICATE ORDER Performed By: #### L 100.0100, L500.4050 ####[facility] [address] [place], [address] CL Normal 98-108 [facility] Comment on above: Result Comment: DUPL ICATE ORDER Performed By: #### L 100.0100, L500.4050 ####[facility] [address] [place], [address] CO2 Normal 21.0-32.0 [facility] Comment on above: Result Comment: DUPL ICATE ORDER Performed By: #### L 100.0100, L500.4050 ####[facility] [address] [place], [address] CREAT,SERUM Normal 0.70-1.20 [facility] Comment on above: Result Comment: DUPL ICATE ORDER Performed By: #### L 100.0100, L500.4050 ####[facility] [address] [place], [address] eGFR Normal >60 [facility] Comment on above: Result Comment: DUPL ICATE ORDER Performed By: #### L 100.0100, L500.4050 ####[facility] [address] [place], [address] GAP Normal 5-15 [facility] Comment on above: Result Comment: DUPL ICATE ORDER Performed By: #### L 100.0100, L500.4050 ####[facility] [address] [place], [address] GLU Normal 70-99 [facility] Comment on above: Result Comment: DUPL ICATE ORDER Performed By: #### L 100.0100, L500.4050 ####[facility] [address] [place], [address] Potassium Normal 3.3-5.1 [facility] Comment on above: Result Comment: DUPL ICATE ORDER Performed By: #### L 100.0100, L500.4050 ####[facility] [address] [place], [address] T BILI Normal 0.00-1.30 [facility] Comment on above: Result Comment: DUPL ICATE ORDER Performed By: #### L 100.0100, L500.4050 ####[facility] [address] [place], [address] T PROT Normal 5.9-8.4 [facility] Comment on above: Result Comment: DUPL ICATE ORDER Performed By: #### L 100.0100, L500.4050 ####[facility] [address] [place], [place], [address] Comprehensive Metabolic Profil Normal 133-145 [facility] Comment on above: Result Comment: DUPL ICATE ORDER Performed By: #### L 100.0100, L500.4050 ####[facility] [address] [place], [address] Eosinophil percentageOrdered By: [facility] Rodriguez on 05-02-2025 Eosinophils/100 WBC (Bld) 1.0 % 0-5 [facility] Erythrocyte distribution wid th ratioOrdered By: [facility] Michael on 05-02-2025 Erythrocyte distribution width (RBC) [Ratio] 18.6 % High 11.6-14.6 [facility] Erythrocyte distribution wid th standard deviationOrdered By: [facility] Michael on 05-02-2025 Erythrocyte distribution width (RBC) [Ratio] 52.1 fl High 35.1-43.9 [facility] Ferritinon 05-02-2025 Ferritin [Mass/Vol] 279 ng/mL Normal 37-417 [facility] Comment on above: Performed By: #### L 503.6030, L503.6550, L100.0100, L501.5200, L501.2300, L500.4050 ####[facility] [address] [place], [place], [address] Glomerular filtration rate ( GFR) estimation/1.73 sq m using serum, plasma, or whole bOrdered By: Angela Rodriguez on 05-02-2025 GFR/1.73 sq M.predicted among non-blacks MDRD (S/P/Bld) [Vol rate/Area] 93 mL/min/{1.73_m2} >60 [facility] Hematocrit Auto (Bld) [Volum e fraction]Ordered By: Angela Rodriguez on 05-02-2025 Hematocrit (Bld) [Volume fraction] 34.8 % Low 40-54 [facility] Hemoglobin measurementOrdere d By: Angela Rodriguez on 05-02-2025 Hemoglobin (Bld) [Mass/Vol] 11.2 g/dL Low 13.0-16.5 [facility] Immature granulocytes/100 WB C Auto (Bld)Ordered By: Angela Rodriguez on 05-02-2025 Immature granulocytes/100 WBC (Bld) 4.600 % High 0.0-0.9 [facility] Iron measurement (mass/mass) Ordered By: Angela Rodriguez on 05-02-2025 Iron (Unsp spec) [Mass/Mass] 48 ug/dL Low 65-175 [facility] Iron+Iron Binding Capacityon 05-02-2025 Iron [Mass/Vol] 48 ug/dL Low 65-175 [facility] Comment on above: Performed By: #### L 503.6030, L503.6550, L100.0100, L501.5200, L501.2300, L500.4050 ####[facility] [address] [place], [address] IRON SATURATION 19.0 Normal 9-55 [facility] Comment on above: Performed By: #### L 503.6030, L503.6550, L100.0100, L501.5200, L501.2300, L500.4050 ####[facility] [address] [place], [address] TIBC 249 ug/dL Low 250-450 [facility] Comment on above: Performed By: #### L 503.6030, L503.6550, L100.0100, L501.5200, L501.2300, L500.4050 ####[facility] [address] [place], [address] UIBC 201 ug/dL Low 228-428 [facility] Comment on above: Performed By: #### L 503.6030, L503.6550, L100.0100, L501.5200, L501.2300, L500.4050 ####[facility] [address] [place], [address] MCV (mean corpuscular volume ) determinationOrdered By: Angela Rodriguez on 05-02-2025 MCV (RBC) [Entitic vol] 78.0 fL Low 80-94 [facility] Magnesiumon 05-02-2025 Magnesium [Mass/Vol] 1.9 mg/dL Normal 1.5-2.2 [facility] Comment on above: Performed By: #### L 503.6030, L503.6550, L100.0100, L501.5200, L501.2300, L500.4050 ####[facility] [address] [place], [place], [id number] Magnesium measurement (mass/ volume)Ordered By: Angela Rodriguez on 05-02-2025 Magnesium (Unsp spec) [Mass/Vol] 1.9 mg/dL 1.5-2.2 [facility] Mean corpuscular hemoglobin (MCH) determinationOrdered By: Angela Rodriguez on 05-02-2025 MCH (RBC) [Entitic mass] 25.1 pg Low 27.0-32.0 [facility] Monocyte percentageOrdered B y: Angela Rodriguez on 05-02-2025 Monocytes/100 WBC (Bld) 12.3 % High 0-10 [facility] Neutrophil percentageOrdered By: Angela Rodriguez on 05-02-2025 Neutrophils/100 WBC (Bld) 65.5 % 47-70 [facility] No Panel InformationOrdered By: Angela Rodriguez on 05-02-2025 Unsaturated Iron Binding Capacity 201 ug/dL Low 228-428 [facility] 16 U/L <38 [facility] 201 ug/dL Low 228-428 [facility] Oncology Visit Reporton 04-10 Oncology Visit Report Normal [facility] Phosphoruson 05-02-2025 Phosphate [Mass/Vol] 3.6 mg/dL Normal 2.7-4.5 [facility] Comment on above: Performed By: #### L 503.6030, L503.6550, L100.0100, L501.5200, L501.2300, L500.4050 ####[facility] [address] [place], [place], [id number] Platelet countOrdered By: Ivonne Rodriguez on 05-02-2025 Platelets (Bld) [#/Vol] 172 10*3/uL 150-450 [facility] Potassium measurement (mass/ volume)Ordered By: Angela Rodriguez on 05-02-2025 Potassium (Unsp spec) [Mass/Vol] 3.2 mmol/L Low 3.3-5.1 [facility] RBC Auto (Bld) [#/Vol]Ordere d By: Angela Rodriguez on 05-02-2025 RBC (Bld) [#/Vol] 4.46 10*6/uL Low 4.6-6.2 [facility] Serum creatinine measurement (mass/volume)Ordered By: Angela Rodriguez on 05-02-2025 Creatinine [Mass/Vol] 0.85 mg/dL 0.70-1.20 [facility] Serum globulin measurementOr dered By: Angela Rodriguez on 05-02-2025 Globulin (S) [Mass/Vol] 1.9 g/dL Low 2.2-4.2 [facility] Serum glucose measurement (m ass/volume)Ordered By: Angela Rodriguez on 05-02-2025 Glucose [Mass/Vol] 105 mg/dL High 70-99 [facility] Serum or plasma alanine kong otransferase (ALT) measurementOrdered By: Angela Rodriguez on 05-02-2025 ALT [Catalytic activity/Vol] 13 U/L <47 [facility] Serum or plasma albumin deangelo urement (mass/volume)Ordered By: Angela Rodriguez on 05-02-2025 Albumin [Mass/Vol] 3.4 g/dL 3.4-4.8 [facility] Serum or plasma albumin/glob ulin mass ratioOrdered By: Angela Rodriguez on 05-02-2025 Albumin/Globulin [Mass ratio] 1.9 {ratio} 0.9-2.4 [facility] Serum or plasma alkaline alie sphatase measurementOrdered By: Angela Rodriguez on 05-02-2025 ALP [Catalytic activity/Vol] 46 U/L 40-129 [facility] Serum or plasma calcium deangelo urement (mass/volume)Ordered By: Angela Rodriguez on 05-02-2025 Calcium [Mass/Vol] 8.5 mg/dL 7.6-11.0 [facility] Serum or plasma ferritin samantha surement (mass/volume)Ordered By: Angela Nelsonjohn on 05-02-2025 Ferritin [Mass/Vol] 279 ng/mL 37-417 [facility] Serum or plasma iron saturat ion measurement (mass fraction)Ordered By: Angela Nelsonjohn on 05-02-2025 Iron saturation [Mass fraction] 19.0 % 9-55 [facility] Serum or plasma urea nitroge n measurement (mass/volume)Ordered By: Angela Michael on 05-02-2025 Urea nitrogen [Mass/Vol] 15 mg/dL 4-19 [facility] Sodium levelOrdered By: Jackie Nelsonjohn on 05-02-2025 Sodium [Moles/Vol] 138 mmol/L 133-145 [facility] Total proteinOrdered By: Antoni Nelsonjohn on 05-02-2025 Protein [Mass/Vol] 5.3 g/dL Low 5.9-8.4 [facility] White blood cell (WBC) count Ordered By: Angela Nelsonjohn on 05-02-2025 WBC (Bld) [#/Vol] 5.9 10*3/uL 4.4-11.0 [facility] 37on 04-18-2025 37 Personalized Prevent ative Plan [...] Recommendations: A preventive eye exam by an health education specialist is recommended every 1-2 years to screen for glaucoma, cataracts, macular degeneration, and other eye disorders. A preventive dental visit is recommended every 6 months. Try to get at least 150 minutes of exercise per week or 10,000 steps per day on a pedometer. You need 1200-1500mg of calcium and 6690-7182 international units of vitamin D per day. [...] riding a bicycle or a motorcycle Normal [facility] Office Visiton 04-18-2025 Follow-up visit [id number] Mirna Arshad robinson Nava 1955 M Date Provider Department Center 04/18/2025 JACOB COSME [facility] Family History Problem Relation Age of Onset Coronary artery disease Mother 65 Comments: CABG Stroke Mother Comments: age 77 Lung cancer Mother Coronary artery disease Father Comments: age 50 [place] - smoker Coronary artery disease Sister Comments: CABG Diabetes Sister Comments: alive age 64 No Known Problems Sister No Known Problems Sister No Known Problems Sister No Known Problems Brother Coronary artery disease Brother Comments: age 47 [place] Family Status - Relation Status Age at Mother 77 Father 50 Sister Alive Sister Alive Sister Alive Sister Alive Brother Alive Brother 47 Level of Service:G0439 [place] PPPS, SUBSEQ VISIT Reason for Visit and Comments: Medicare Annual Wellness Visit Subsequent [677] Normal [facility] Progress Noteon 04-18-2025 Progress Note After obtaining cons ent, and per orders of Dr. Jennings , injection of Pneumococcal 20 given in Right arm by Monalisa Sanford . Patient instructed to remain in clinic for 20 minutes afterwards, and to report any adverse reaction to me immediately. Normal [facility] Progress Note [facility] - [address] [facility] [address] Dept: [phone] Dept Chief Complaint: Kenn Arshad is an [...] to strenou (more content not included)... Normal [facility] CBC W/Diff, Automatedon 06-0 PATH REV Reviewed [facility] Comment on above: Result Comment: SEE REPORT IN PATIENT'S EMR AMENDED REPORT 04/14/25 1416 PATH REV previously reported as: March Performed By: #### L 100.0100, L500.2500 ####[facility] [address] [place], [place], [id number] Absolute lymphocyte countOrd ered By: Angela Rodriguez on 04-12-2025 Lymphocytes Auto (Unsp spec) [#/Vol] 0.43 10*3/uL Low 0.83-4.51 [facility] Anion gap in Serum or Plasma Ordered By: Angela Rodriguez on 04-12-2025 Anion gap [Moles/Vol] 12 mmol/L 5-15 [facility] Automated lymphocyte count a s percentage of total leukocytesOrdered By: Angela Rodriguez on 04-12-2025 Lymphocytes/100 WBC Auto (Unsp spec) 6.4 % Low 19-41 [facility] BUN/creatinine ratioOrdered By: [facility] on 04-12-2025 Urea nitrogen/Creatinine [Mass ratio] 14.8 mg/mg 10-20 [facility] Basophil percentageOrdered B y: [facility] Rodriguez on 04-12-2025 Basophils/100 WBC (Bld) 0.3 % 0-1 [facility] Bilirubin, totalOrdered By: [facility] Rodriguez on 04-12-2025 Bilirubin [Mass/Vol] 0.63 mg/dL 0.00-1.30 [facility] Blood polychromasia detectio n by light microscopyOrdered By: [facility] Rodriguez on 04-12-2025 Polychromasia LM Ql (Bld) RARE [facility] CBC W/Diff, Automatedon Anisocytosis Ql (Bld) 1+ Normal [facility] Comment on above: Performed By: #### L 500.4050, L100.0100, L501.2300 ####[facility] [address] [place], [place], [id number] OVALOCYTE 1+ Normal [facility] Comment on above: Performed By: #### L 500.4050, L100.0100, L501.2300 ####[facility] [address] [place], [address] PLT EST SLT DEC Normal ADEQ [facility] Comment on above: Performed By: #### L 500.4050, L100.0100, L501.2300 ####[facility] [address] [place], [address] POLYCHROMASIA RARE Normal [facility] Comment on above: Performed By: #### L 500.4050, L100.0100, L501.2300 ####[facility] [address] [place], [address] TEAR DROP RARE Normal [facility] Comment on above: Performed By: #### L 500.4050, L100.0100, L501.2300 ####[facility] [address] [place], [address] Carbon dioxide, total [Moles /volume] in Central venous bloodOrdered By: Angela Rodriguez on 04-12-2025 CO2 [Moles/Vol] 18.6 mmol/L Low 21.0-32.0 [facility] Chloride assayOrdered By: Ivonne Rodriguez on 04-12-2025 Chloride [Moles/Vol] 107 mmol/L 98-108 [facility] Comprehensive Metabolic Prof ilon 04-12-2025 Albumin [Mass/Vol] 4.0 g/dL Normal 3.4-4.8 [facility] Comment on above: Performed By: #### L 500.4050, L100.0100, L501.2300 ####[facility] [address] [place], [address] Albumin/Globulin [Mass ratio] 2.1 {ratio} Normal 0.9-2.4 [facility] Comment on above: Performed By: #### L 500.4050, L100.0100, L501.2300 ####[facility] [address] [place], [address] ALK PHOS 51 U/L Normal 40-129 [facility] Comment on above: Performed By: #### L 500.4050, L100.0100, L501.2300 ####[facility] [address] [place], [address] ALT [Catalytic activity/Vol] 24 U/L Normal <=46 [facility] Comment on above: Performed By: #### L 500.4050, L100.0100, L501.2300 ####[facility] [address] [place], [address] AST [Catalytic activity/Vol] 22 U/L Normal <=37 [facility] Comment on above: Performed By: #### L 500.4050, L100.0100, L501.2300 ####[facility] [address] [place], [address] Bilirubin [Mass/Vol] 0.63 mg/dL Normal 0.00-1.30 [facility] Comment on above: Performed By: #### L 500.4050, L100.0100, L501.2300 ####[facility] [address] [place], [address] BUN/CRE 14.8 RATIO Normal 10-20 [facility] Comment on above: Performed By: #### L 500.4050, L100.0100, L501.2300 ####[facility] [address] [place], [address] Calcium [Mass/Vol] 8.7 mg/dL Normal 7.6-11.0 [facility] Comment on above: Performed By: #### L 500.4050, L100.0100, L501.2300 ####[facility] [address] [place], [address] Chloride [Moles/Vol] 107 mmol/L Normal 98-108 [facility] Comment on above: Performed By: #### L 500.4050, L100.0100, L501.2300 ####[facility] [address] [place], [address] CO2 [Moles/Vol] 18.6 mmol/L Low 21.0-32.0 [facility] Comment on above: Performed By: #### L 500.4050, L100.0100, L501.2300 ####[facility] [address] [place], [address] Creatinine [Mass/Vol] 0.85 mg/dL Normal 0.70-1.20 [facility] Comment on above: Performed By: #### L 500.4050, L100.0100, L501.2300 ####[facility] [address] [place], [address] ECRCL 76.58 ml/min Normal 50-250 [facility] Comment on above: Performed By: #### L 500.4050, L100.0100, L501.2300 ####[facility] [address] [place], [address] GAP 12 Normal 5-15 [facility] Comment on above: Performed By: #### L 500.4050, L100.0100, L501.2300 ####[facility] [address] [place], [address] GFR/1.73 sq M.predicted among non-blacks MDRD (S/P/Bld) [Vol rate/Area] 93 mL/min/{1.73_m2} Normal >60 [facility] Comment on above: Result Comment: mL/m in/1.73m2 CKD-EPI Creatinine Equation (2020) Performed By: #### L 500.4050, L100.0100, L501.2300 ####[facility] [address] [place], [address] Globulin (S) [Mass/Vol] 2.0 g/dL Low 2.2-4.2 [facility] Comment on above: Performed By: #### L 500.4050, L100.0100, L501.2300 ####[facility] [address] [place], [address] Glucose [Mass/Vol] 113 mg/dL High 70-99 [facility] Comment on above: Performed By: #### L 500.4050, L100.0100, L501.2300 ####[facility] [address] [place], [address] Potassium [Moles/Vol] 4.0 mmol/L Normal 3.3-5.1 [facility] Comment on above: Performed By: #### L 500.4050, L100.0100, L501.2300 ####[facility] [address] [place], [address] Sodium [Moles/Vol] 138 mmol/L Normal 133-145 [facility] Comment on above: Performed By: #### L 500.4050, L100.0100, L501.2300 ####[facility] [address] [place], [address] T PROT 6.0 g/dL Normal 5.9-8.4 [facility] Comment on above: Performed By: #### L 500.4050, L100.0100, L501.2300 ####[facility] [address] [place], [address] Urea nitrogen [Mass/Vol] 13 mg/dL Normal 4-19 [facility] Comment on above: Performed By: #### L 500.4050, L100.0100, L501.2300 ####[facility] [address] [place], [address] Eosinophil percentageOrdered By: Angela Rodriguez on 04-12-2025 Eosinophils/100 WBC (Bld) 1.0 % 0-5 [facility] Erythrocyte distribution wid th ratioOrdered By: [facility] Michael on 04-12-2025 Erythrocyte distribution width (RBC) [Ratio] 21.5 % High 11.6-14.6 [facility] Erythrocyte distribution wid th standard deviationOrdered By: [facility] Michael on 04-12-2025 Erythrocyte distribution width (RBC) [Ratio] 60.8 fl High 35.1-43.9 [facility] Glomerular filtration rate ( GFR) estimation/1.73 sq m using serum, plasma, or whole bOrdered By: [facility] Rodriguez on 04-12-2025 GFR/1.73 sq M.predicted among non-blacks MDRD (S/P/Bld) [Vol rate/Area] 93 mL/min/{1.73_m2} >60 [facility] Hematocrit Auto (Bld) [Volum e fraction]Ordered By: [facility] on 04-12-2025 Hematocrit (Bld) [Volume fraction] 35.6 % Low 40-54 [facility] Hemoglobin measurementOrdere d By: [facility] Rodriguez on 04-12-2025 Hemoglobin (Bld) [Mass/Vol] 11.4 g/dL Low 13.0-16.5 [facility] Immature granulocytes/100 WB C Auto (Bld)Ordered By: [facility] Rodriguez on 04-12-2025 Immature granulocytes/100 WBC (Bld) 1.500 % High 0.0-0.9 [facility] Laboratory - Hematology and Cell countsOrdered By: [facility] Michael on 04-12-2025 Anisocytosis Ql (Bld) 1+ [facility] MCV (mean corpuscular volume ) determinationOrdered By: [facility] Michael on 04-12-2025 MCV (RBC) [Entitic vol] 78.6 fL Low 80-94 [facility] Mean corpuscular hemoglobin (MCH) determinationOrdered By: [facility] on 04-12-2025 MCH (RBC) [Entitic mass] 25.2 pg Low 27.0-32.0 [facility] Monocyte percentageOrdered B y: [facility] Michael on 04-12-2025 Monocytes/100 WBC (Bld) 4.5 % 0-10 [facility] Neutrophil percentageOrdered By: Angela Rodriguez on 04-12-2025 Neutrophils/100 WBC (Bld) 86.3 % High 47-70 [facility] No Panel InformationOrdered By: Angela Rodriguez on 04-12-2025 1+ [facility] 22 U/L <38 [facility] Oncology Visit Reporton 06-0 Oncology Visit Report Normal [facility] Ovalocyte detectionOrdered B y: nAgela Rodriguez on 04-12-2025 Ovalocytes LM Ql (Bld) 1+ [facility] Phosphoruson 04-12-2025 Phosphate [Mass/Vol] 3.3 mg/dL Normal 2.7-4.5 [facility] Comment on above: Performed By: #### L 500.4050, L100.0100, L501.2300 ####[facility] [address] [place], [place], [id number] Platelet countOrdered By: Ivonne Rodriguez on 04-12-2025 Platelets (Bld) [#/Vol] 109 10*3/uL Low 150-450 [facility] Platelet estimateOrdered By: Angela Rodriguez on 04-12-2025 Platelets LM Ql (Bld) SLT DEC ADEQ [facility] Potassium measurement (mass/ volume)Ordered By: Angela Rodriguez on 04-12-2025 Potassium (Unsp spec) [Mass/Vol] 4.0 mmol/L 3.3-5.1 [facility] RBC Auto (Bld) [#/Vol]Ordere d By: Angela Rodriguez on 04-12-2025 RBC (Bld) [#/Vol] 4.53 10*6/uL Low 4.6-6.2 [facility] Serum creatinine measurement (mass/volume)Ordered By: Angela Rodriguez on 04-12-2025 Creatinine [Mass/Vol] 0.85 mg/dL 0.70-1.20 [facility] Serum globulin measurementOr dered By: Angela Rodriguez on 04-12-2025 Globulin (S) [Mass/Vol] 2.0 g/dL Low 2.2-4.2 [facility] Serum glucose measurement (m ass/volume)Ordered By: Angela Rodriguez on 04-12-2025 Glucose [Mass/Vol] 113 mg/dL High 70-99 [facility] Serum or plasma alanine kong otransferase (ALT) measurementOrdered By: Angela Rodriguez on 04-12-2025 ALT [Catalytic activity/Vol] 24 U/L <47 [facility] Serum or plasma albumin deangelo urement (mass/volume)Ordered By: Angela Rodriguez on 04-12-2025 Albumin [Mass/Vol] 4.0 g/dL 3.4-4.8 [facility] Serum or plasma albumin/glob ulin mass ratioOrdered By: Angela Rodriguez on 04-12-2025 Albumin/Globulin [Mass ratio] 2.1 {ratio} 0.9-2.4 [facility] Serum or plasma alkaline alie sphatase measurementOrdered By: Angela Rodriguez on 04-12-2025 ALP [Catalytic activity/Vol] 51 U/L 40-129 [facility] Serum or plasma calcium deangelo urement (mass/volume)Ordered By: Angela Rodriguez on 04-12-2025 Calcium [Mass/Vol] 8.7 mg/dL 7.6-11.0 [facility] Serum or plasma urea nitroge n measurement (mass/volume)Ordered By: Angela Rodriguez on 04-12-2025 Urea nitrogen [Mass/Vol] 13 mg/dL 4-19 [facility] Sodium levelOrdered By: Jackie Rodriguez on 04-12-2025 Sodium [Moles/Vol] 138 mmol/L 133-145 [facility] Teardrop cell detectionOrder ed By: Angela Rodriguez on 04-12-2025 Dacrocytes LM Ql (Bld) RARE [facility] Total proteinOrdered By: Antoni Rodriguez on 04-12-2025 Protein [Mass/Vol] 6.0 g/dL 5.9-8.4 [facility] White blood cell (WBC) count Ordered By: Angela Rodriguez on 04-12-2025 WBC (Bld) [#/Vol] 6.7 10*3/uL 4.4-11.0 [facility] 36on 03-31-2025 36 Wrong office. Normal [facility] 36on 03-30-2025 36 Name of caller: Avery lam Contact phone number: [phone] Relationship to Patient: [facility] PT Provider: Dr. Jennings Practice: [facility] Chief Complaint/Reason for Call: Bradley is calling from [facility] to let Dr. Jennings know the patients plan of care. The patient will be seen for 4 weeks at 1 time per week for Functional Mobility Training. Bradley states if Dr. Jennings has further questions he can be reached at [phone]. Best time of day caller can be reached: Any Patient advised that office/PCP has 24-48 business hours to return their call: No Normal [facility] Gastroenterology Visit Repor ton 03-30-2025 Gastroenterology Visit Report Normal [facility] Absolute lymphocyte countOrd ered By: Verónica Meadows on 03-29-2025 Lymphocytes Auto (Unsp spec) [#/Vol] 0.45 10*3/uL Low 0.83-4.51 [facility] Anion gap in Serum or Plasma Ordered By: Angela Rodriguez on 03-29-2025 Anion gap [Moles/Vol] 11 mmol/L 5-15 [facility] Automated lymphocyte count a s percentage of total leukocytesOrdered By: Verónica Meadows on 03-29-2025 Lymphocytes/100 WBC Auto (Unsp spec) 3.9 % Low 19-41 [facility] BUN/creatinine ratioOrdered By: Angela Rodriguez on 03-29-2025 Urea nitrogen/Creatinine [Mass ratio] 21.6 mg/mg High 10-20 [facility] Basic Metabolic Profile (BMP )on 03-29-2025 BUN/CRE 21.6 RATIO High - [facility] Comment on above: Performed By: #### L 501.2300, L500.2500, L501.5200 ####[facility] [address] [place], [address] Calcium [Mass/Vol] 8.5 mg/dL Normal 7.6-11.0 [facility] Comment on above: Performed By: #### L 501.2300, L500.2500, L501.5200 ####[facility] [address] [place], [address] Chloride [Moles/Vol] 107 mmol/L Normal 98-108 [facility] Comment on above: Performed By: #### L 501.2300, L500.2500, L501.5200 ####[facility] [address] [place], [address] CO2 [Moles/Vol] 18.2 mmol/L Low 21.0-32.0 [facility] Comment on above: Performed By: #### L 501.2300, L500.2500, L501.5200 ####[facility] [address] [place], [address] Creatinine [Mass/Vol] 0.80 mg/dL Normal 0.70-1.20 [facility] Comment on above: Performed By: #### L 501.2300, L500.2500, L501.5200 ####[facility] [address] [place], [address] ECRCL 82.10 ml/min Normal 50-250 [facility] Comment on above: Performed By: #### L 501.2300, L500.2500, L501.5200 ####[facility] [address] [place], [address] GAP 11 Normal 5-15 [facility] Comment on above: Performed By: #### L 501.2300, L500.2500, L501.5200 ####[facility] [address] [place], [address] GFR/1.73 sq M.predicted among non-blacks MDRD (S/P/Bld) [Vol rate/Area] 95 mL/min/{1.73_m2} Normal >60 [facility] Comment on above: Result Comment: mL/m in/1.73m2 CKD-EPI Creatinine Equation (2020) Performed By: #### L 501.2300, L500.2500, L501.5200 ####[facility] [address] [place], [address] Glucose [Mass/Vol] 110 mg/dL High 70-99 [facility] Comment on above: Performed By: #### L 501.2300, L500.2500, L501.5200 ####[facility] [address] [place], [address] Potassium [Moles/Vol] 4.0 mmol/L Normal 3.3-5.1 [facility] Comment on above: Performed By: #### L 501.2300, L500.2500, L501.5200 ####[facility] [address] [place], [address] Sodium [Moles/Vol] 136 mmol/L Normal 133-145 [facility] Comment on above: Performed By: #### L 501.2300, L500.2500, L501.5200 ####[facility] [address] [place], [address] Urea nitrogen [Mass/Vol] 17 mg/dL Normal 4-19 [facility] Comment on above: Performed By: #### L 501.2300, L500.2500, L501.5200 ####[facility] [address] [place], [address] Basophil percentageOrdered B y: Verónica Meadows on 03-29-2025 Basophils/100 WBC (Bld) 0.3 % 0-1 [facility] CBC W/Diff, Automatedon 03-10 Anisocytosis Ql (Bld) 1+ Normal [facility] Comment on above: Performed By: #### L 100.0100 ####[facility] [address] [place], [address] Carbon dioxide, total [Moles /volume] in Central venous bloodOrdered By: Angela Rodriguez on 03-29-2025 CO2 [Moles/Vol] 18.2 mmol/L Low 21.0-32.0 [facility] Chloride assayOrdered By: Ivonne Rodriguez on 03-29-2025 Chloride [Moles/Vol] 107 mmol/L 98-108 [facility] Eosinophil percentageOrdered By: Verónica Meadows on 03-29-2025 Eosinophils/100 WBC (Bld) 0.1 % 0-5 [facility] Erythrocyte distribution wid th ratioOrdered By: Verónica Meadows on 03-29-2025 Erythrocyte distribution width (RBC) [Ratio] 20.3 % High 11.6-14.6 [facility] Erythrocyte distribution wid th standard deviationOrdered By: Verónica Meadows on 03-29-2025 Erythrocyte distribution width (RBC) [Ratio] 53.1 fl High 35.1-43.9 [facility] Glomerular filtration rate ( GFR) estimation/1.73 sq m using serum, plasma, or whole bOrdered By: Angela Rodriguez on 03-29-2025 GFR/1.73 sq M.predicted among non-blacks MDRD (S/P/Bld) [Vol rate/Area] 95 mL/min/{1.73_m2} >60 [facility] Hematocrit Auto (Bld) [Volum e fraction]Ordered By: Verónica Meadows on 03-29-2025 Hematocrit (Bld) [Volume fraction] 32.8 % Low 40-54 [facility] Hemoglobin measurementOrdere d By: Verónica Meadows on 03-29-2025 Hemoglobin (Bld) [Mass/Vol] 10.2 g/dL Low 13.0-16.5 [facility] Immature granulocytes/100 WB C Auto (Bld)Ordered By: Verónica Meadows on 03-29-2025 Immature granulocytes/100 WBC (Bld) 4.900 % High 0.0-0.9 [facility] MCV (mean corpuscular volume ) determinationOrdered By: Verónica Meadows on 03-29-2025 MCV (RBC) [Entitic vol] 76.5 fL Low 80-94 [facility] Magnesiumon 03-29-2025 Magnesium [Mass/Vol] 1.8 mg/dL Normal 1.5-2.2 [facility] Comment on above: Performed By: #### L 501.2300, L500.2500, L501.5200 ####[facility] [address] [place], [address] Magnesium measurement (mass/ volume)Ordered By: Angela Rodriguez on 03-29-2025 Magnesium (Unsp spec) [Mass/Vol] 1.8 mg/dL 1.5-2.2 [facility] Mean corpuscular hemoglobin (MCH) determinationOrdered By: Verónica Meadows on 03-29-2025 MCH (RBC) [Entitic mass] 23.8 pg Low 27.0-32.0 [facility] Monocyte percentageOrdered B y: Verónica Meadows on 03-29-2025 Monocytes/100 WBC (Bld) 3.4 % 0-10 [facility] Neutrophil percentageOrdered By: Verónica Meadows on 03-29-2025 Neutrophils/100 WBC (Bld) 87.4 % High 47-70 [facility] Oncology Visit Reporton 03-10 Oncology Visit Report Normal [facility] Phosphoruson 03-29-2025 Phosphate [Mass/Vol] 2.6 mg/dL Low 2.7-4.5 [facility] Comment on above: Performed By: #### L 501.2300, L500.2500, L501.5200 ####[facility] [address] [place], [place], [id number] Platelet countOrdered By: Pk Meadows on 03-29-2025 Platelets (Bld) [#/Vol] 230 10*3/uL 150-450 [facility] Potassium measurement (mass/ volume)Ordered By: Angela Rodriguez on 03-29-2025 Potassium (Unsp spec) [Mass/Vol] 4.0 mmol/L 3.3-5.1 [facility] RBC Auto (Bld) [#/Vol]Ordere d By: Verónica HaDori on 03-29-2025 RBC (Bld) [#/Vol] 4.29 10*6/uL Low 4.6-6.2 [facility] Serum creatinine measurement (mass/volume)Ordered By: Angela Rodriguez on 03-29-2025 Creatinine [Mass/Vol] 0.80 mg/dL 0.70-1.20 [facility] Serum glucose measurement (m ass/volume)Ordered By: Angela Rodriguez on 03-29-2025 Glucose [Mass/Vol] 110 mg/dL High 70-99 [facility] Serum or plasma calcium deangelo urement (mass/volume)Ordered By: Angela Rodriguez on 03-29-2025 Calcium [Mass/Vol] 8.5 mg/dL 7.6-11.0 [facility] Serum or plasma urea nitroge n measurement (mass/volume)Ordered By: Angela Rodriguez on 03-29-2025 Urea nitrogen [Mass/Vol] 17 mg/dL 4-19 [facility] Sodium levelOrdered By: Jackie Rodriguez on 03-29-2025 Sodium [Moles/Vol] 136 mmol/L 133-145 [facility] White blood cell (WBC) count Ordered By: Verónica Meadows on 03-29-2025 WBC (Bld) [#/Vol] 11.6 10*3/uL High 4.4-11.0 [facility] 36on 03-27-2025 36 Recent Visits Date [...] BUN 7 (L) 12/30/2024 CREATININE 1.11 12/30/[address] [facility] 36 Spoke with Dahiana nava advised. [place] [address] Spoke with Katharina archuleta nd she voiced understanding. [place] [address] Name of caller: Zain lora Contact phone number: [phone] Relationship to Patient: [facility] health Provider: Dr Jennings Practice: [facility] Chief Complaint/Reason for Call: Caller is [...] hours to return their call: No Normal [facility] CBC W/Diff, Automatedon 05-1 Absolute Neut Normal 2.0-7.7 [facility] Comment on above: Result Comment: Canc elled via OM: Order cancelled - Patient discharged Performed By: #### L 100.0100 ####[facility] [address] [place], [address] HCT Normal 40-54 [facility] Comment on above: Result Comment: Canc elled via OM: Order cancelled - Patient discharged Performed By: #### L 100.0100 ####[facility] [address] [place], [address] HGB Normal 13.0-16.5 [facility] Comment on above: Result Comment: Canc elled via OM: Order cancelled - Patient discharged Performed By: #### L 100.0100 ####[facility] [address] [place], [address] MCH Normal 27.0-32.0 [facility] Comment on above: Result Comment: Canc elled via OM: Order cancelled - Patient discharged Performed By: #### L 100.0100 ####[facility] [address] [place], [address] MCHC Normal 32-36 [facility] Comment on above: Result Comment: Canc elled via OM: Order cancelled - Patient discharged Performed By: #### L 100.0100 ####[facility] [address] [place], [address] MCV Normal 80-94 [facility] Comment on above: Result Comment: Canc elled via OM: Order cancelled - Patient discharged Performed By: #### L 100.0100 ####[facility] [address] [place], [address] NEUT% Normal 47-70 [facility] Comment on above: Result Comment: Canc elled via OM: Order cancelled - Patient discharged Performed By: #### L 100.0100 ####[facility] [address] [place], [address] PLT Normal 150-450 [facility] Comment on above: Result Comment: Canc elled via OM: Order cancelled - Patient discharged Performed By: #### L 100.0100 ####[facility] [address] [place], [address] RBC Normal 4.6-6.2 [facility] Comment on above: Result Comment: Canc elled via OM: Order cancelled - Patient discharged Performed By: #### L 100.0100 ####[facility] [address] [place], [address] RDW CV Normal 11.6-14.6 [facility] Comment on above: Result Comment: Canc elled via OM: Order cancelled - Patient discharged Performed By: #### L 100.0100 ####[facility] [address] [place], [address] RDW SD Normal 35.1-43.9 [facility] Comment on above: Result Comment: Canc elled via OM: Order cancelled - Patient discharged Performed By: #### L 100.0100 ####[facility] [address] [place], [address] WBC Normal 4.4-11.0 [facility] Comment on above: Result Comment: Canc elled via OM: Order cancelled - Patient discharged Performed By: #### L 100.0100 ####[facility] [address] [place], [address] Respiratory Cultureon 2024 RESPC Normal [facility] Comment on above: Performed By: #### M 100.2400, M100.2000 ####[facility] [address] [place], [address] 36on 03-24-2025 36 Name of caller: Jose lieberman with [facility] Contact phone number: [phone] Relationship to Patient: coordinator Provider: Jacob Jennings DO Practice: [facility] Chief Complaint/Reason for Call: Pt being discharged today, requesting a callback to see if PCP will follow for home care: half-way and physical therapy. Best time of day caller can be reached: any Patient advised that office/PCP has 24-48 business hours to return their call: Yes Normal [facility] Absolute lymphocyte countOrd ered By: Emmanuel Kaiser on 03-24-2025 Lymphocytes Auto (Unsp spec) [#/Vol] 0.13 10*3/uL Low 0.83-4.51 [facility] Absolute neutrophil countOrd ered By: Emmanuel Kaiser on 03-24-2025 Neutrophils (Bld) [#/Vol] 2.3 10*3/uL 2.0-7.7 [facility] Anion gap in Serum or Plasma Ordered By: Emmanuel Kaiser on 03-24-2025 Anion gap [Moles/Vol] 8 mmol/L 5-15 [facility] BUN/creatinine ratioOrdered By: Emmanuel Kaiser on 03-24-2025 Urea nitrogen/Creatinine [Mass ratio] 20.8 mg/mg High 10-20 [facility] Basic Metabolic Profile (BMP )on 03-24-2025 BUN/CRE 20.8 RATIO High - [facility] Comment on above: Performed By: #### L 100.0100, L500.2500 ####[facility] [address] [place], [address] Calcium [Mass/Vol] 8.0 mg/dL Normal 7.6-11.0 [facility] Comment on above: Performed By: #### L 100.0100, L500.2500 ####[facility] [address] [place], [address] Chloride [Moles/Vol] 112 mmol/L High 98-108 [facility] Comment on above: Performed By: #### L 100.0100, L500.2500 ####[facility] [address] [place], [address] CO2 [Moles/Vol] 17.9 mmol/L Low 21.0-32.0 [facility] Comment on above: Performed By: #### L 100.0100, L500.2500 ####[facility] [address] [place], [address] Creatinine [Mass/Vol] 0.83 mg/dL Normal 0.70-1.20 [facility] Comment on above: Performed By: #### L 100.0100, L500.2500 ####[facility] [address] [place], [address] ECRCL 80.11 ml/min Normal 50-250 [facility] Comment on above: Performed By: #### L 100.0100, L500.2500 ####[facility] [address] [place], [address] GAP 8 Normal 5-15 [facility] Comment on above: Performed By: #### L 100.0100, L500.2500 ####[facility] [address] [place], [address] GFR/1.73 sq M.predicted among non-blacks MDRD (S/P/Bld) [Vol rate/Area] 94 mL/min/{1.73_m2} Normal >60 [facility] Comment on above: Result Comment: mL/m in/1.73m2 CKD-EPI Creatinine Equation (2020) Performed By: #### L 100.0100, L500.2500 ####[facility] [address] [place], [address] Glucose [Mass/Vol] 232 mg/dL High 70-99 [facility] Comment on above: Performed By: #### L 100.0100, L500.2500 ####[facility] [address] [place], [address] Potassium [Moles/Vol] 3.6 mmol/L Normal 3.3-5.1 [facility] Comment on above: Performed By: #### L 100.0100, L500.2500 ####[facility] [address] [place], [address] Sodium [Moles/Vol] 139 mmol/L Normal 133-145 [facility] Comment on above: Performed By: #### L 100.0100, L500.2500 ####[facility] [address] [place], [address] Urea nitrogen [Mass/Vol] 17 mg/dL Normal 4-19 [facility] Comment on above: Performed By: #### L 100.0100, L500.2500 ####[facility] [address] [place], [address] Blood lymphocytes/100 leukoc ytesOrdered By: Emmanuel Kaiser on 03-24-2025 Lymphocytes/100 WBC (Bld) 5 % Low 19-41 [facility] Blood monocytes/100 leukocyt esOrdered By: Emmanuel Kaiser on 03-24-2025 Monocytes/100 WBC (Bld) 1 % 0-10 [facility] Blood segmented neutrophils/ 100 leukocytesOrdered By: Emmanuel Kaiser on 03-24-2025 Segmented neutrophils/100 WBC (Bld) 92 % High 47-70 [facility] Carbon dioxide, total [Moles /volume] in Central venous bloodOrdered By: Emmanuel Kaiser on 03-24-2025 CO2 [Moles/Vol] 17.9 mmol/L Low 21.0-32.0 [facility] Chloride assayOrdered By: Nicole Kaiser on 03-24-2025 Chloride [Moles/Vol] 112 mmol/L High 98-108 [facility] Discharge Instructionon 03-09 Discharge Instruction Normal [facility] Erythrocyte distribution wid th ratioOrdered By: Emmanuel Kaiser on 03-24-2025 Erythrocyte distribution width (RBC) [Ratio] 17.9 % High 11.6-14.6 [facility] Erythrocyte distribution wid th standard deviationOrdered By: Emmanuel Kaiser on 03-24-2025 Erythrocyte distribution width (RBC) [Ratio] 48.8 fl High 35.1-43.9 [facility] Glomerular filtration rate ( GFR) estimation/1.73 sq m using serum, plasma, or whole bOrdered By: Emmanuel Kaiser on 03-24-2025 GFR/1.73 sq M.predicted among non-blacks MDRD (S/P/Bld) [Vol rate/Area] 94 mL/min/{1.73_m2} >60 [facility] Comment on above: mL/min/1.73m2 CKD-EP I Creatinine Equation (2020) HH, Hemoglobin AND Hematocri ton 03-24-2025 Hematocrit (Bld) [Volume fraction] 28.0 % Low 40-54 [facility] Comment on above: Performed By: #### L 100.0600 ####[facility] [address] [place], [place], [phone] Hemoglobin (Bld) [Mass/Vol] 8.8 g/dL Low 13.0-16.5 [facility] Comment on above: Performed By: #### L 100.0600 ####[facility] [address] [place], [place], [phone] Hematocrit Auto (Bld) [Volum e fraction]Ordered By: Evelio Hong on 03-24-2025 Hematocrit (Bld) [Volume fraction] 28.0 % Low 40-54 [facility] Hemoglobin measurementOrdere d By: Evelio Hong on 03-24-2025 Hemoglobin (Bld) [Mass/Vol] 8.8 g/dL Low 13.0-16.5 [facility] MCV (mean corpuscular volume ) determinationOrdered By: Emmanuel Kaiser on 03-24-2025 MCV (RBC) [Entitic vol] 74.3 fL Low 80-94 [facility] Mean corpuscular hemoglobin (MCH) determinationOrdered By: Emmanuel Kaiser on 03-24-2025 MCH (RBC) [Entitic mass] 23.1 pg Low 27.0-32.0 [facility] Mean corpuscular hemoglobin concentration (MCHC) determinationOrdered By: Emmanuel Kaiser on 03-24-2025 MCHC (RBC) [Mass/Vol] 31.1 g/dL Low 32-36 [facility] Mean platelet volume determi nationOrdered By: Emmanuel Kaiser on 03-24-2025 Platelet mean volume (Bld) [Entitic vol] 9.2 fL 6.2-12.0 [facility] Myelocyte %Ordered By: Brenda Kaiser on 03-24-2025 Myelocytes/100 WBC (Bld) 2 % High 0-0 [facility] Ovalocyte detectionOrdered B y: Emmanuel Kaiser on 03-24-2025 Ovalocytes LM Ql (Bld) RARE [facility] Platelet countOrdered By: Nicole Kaiser on 03-24-2025 Platelets (Bld) [#/Vol] 190 10*3/uL 150-450 [facility] Potassium measurement (mass/ volume)Ordered By: Emmanuel Kaiser on 03-24-2025 Potassium (Unsp spec) [Mass/Vol] 3.6 mmol/L 3.3-5.1 [facility] RBC Auto (Bld) [#/Vol]Ordere d By: Emmanuel Kaiser on 03-24-2025 RBC (Bld) [#/Vol] 3.42 10*6/uL Low 4.6-6.2 [facility] Review by pathologistOrdered By: Emmanuel Kaiser on 03-24-2025 Pathologist review [place] (Unsp spec) [Interp] Samira rehman [facility] Pathologist review [place] (Unsp spec) [Interp] Reviewed [facility] Comment on above: Previous reported re sult: Samira rehman Edited by: BETH on 04/14/25:1416SEE REPORT IN PATIENT'S EMR AMENDED REPORT 04/14/25 1416 PATH REV previously reported as: Samira rehman Serum creatinine measurement (mass/volume)Ordered By: Emmanuel Kaiser on 03-24-2025 Creatinine [Mass/Vol] 0.83 mg/dL 0.70-1.20 [facility] Serum glucose measurement (m ass/volume)Ordered By: Emmanuel Kaiser on 03-24-2025 Glucose [Mass/Vol] 232 mg/dL High 70-99 [facility] Serum or plasma calcium deangelo urement (mass/volume)Ordered By: Emmanuel Kaiser on 03-24-2025 Calcium [Mass/Vol] 8.0 mg/dL 7.6-11.0 [facility] Serum or plasma urea nitroge n measurement (mass/volume)Ordered By: Emmanuel Kaiser on 03-24-2025 Urea nitrogen [Mass/Vol] 17 mg/dL 4-19 [facility] Sodium levelOrdered By: Pari Kaiser on 03-24-2025 Sodium [Moles/Vol] 139 mmol/L 133-145 [facility] Total cell countOrdered By: Emmanuel Kaiser on 03-24-2025 Cells counted Molgen (Bld/Tiss) [#] 100 MANUAL DIFF [facility] White blood cell (WBC) count Ordered By: Emmanuel Kaiser on 03-24-2025 WBC (Bld) [#/Vol] 2.5 10*3/uL Low 4.4-11.0 [facility] Automated lymphocyte count a s percentage of total leukocytesOrdered By: Emmanuel Kaiser on 03-23-2025 Lymphocytes/100 WBC Auto (Unsp spec) 9.5 % Low 19-41 [facility] Basic Metabolic Profile (BMP )on 03-23-2025 BUN/CRE 18.4 RATIO Normal 10-20 [facility] Comment on above: Performed By: #### L 500.2500, L100.0100 ####[facility] [address] [place], [address] Calcium [Mass/Vol] 8.3 mg/dL Normal 7.6-11.0 [facility] Comment on above: Performed By: #### L 500.2500, L100.0100 ####[facility] [address] [place], [address] Chloride [Moles/Vol] 110 mmol/L High 98-108 [facility] Comment on above: Performed By: #### L 500.2500, L100.0100 ####[facility] [address] [place], [address] CO2 [Moles/Vol] 16.4 mmol/L Low 21.0-32.0 [facility] Comment on above: Performed By: #### L 500.2500, L100.0100 ####[facility] [address] [place], [address] Creatinine [Mass/Vol] 0.87 mg/dL Normal 0.70-1.20 [facility] Comment on above: Performed By: #### L 500.2500, L100.0100 ####[facility] [address] [place], [address] ECRCL 75.10 ml/min Normal 50-250 [facility] Comment on above: Performed By: #### L 500.2500, L100.0100 ####[facility] [address] [place], [address] GAP 13 Normal 5-15 [facility] Comment on above: Performed By: #### L 500.2500, L100.0100 ####[facility] [address] [place], [address] GFR/1.73 sq M.predicted among non-blacks MDRD (S/P/Bld) [Vol rate/Area] 92 mL/min/{1.73_m2} Normal >60 [facility] Comment on above: Result Comment: mL/m in/1.73m2 CKD-EPI Creatinine Equation (2020) Performed By: #### L 500.2500, L100.0100 ####[facility] [address] [place], [address] Glucose [Mass/Vol] 163 mg/dL High 70-99 [facility] Comment on above: Performed By: #### L 500.2500, L100.0100 ####[facility] [address] [place], [address] Potassium [Moles/Vol] 4.0 mmol/L Normal 3.3-5.1 [facility] Comment on above: Performed By: #### L 500.2500, L100.0100 ####[facility] [address] [place], [address] Sodium [Moles/Vol] 139 mmol/L Normal 133-145 [facility] Comment on above: Performed By: #### L 500.2500, L100.0100 ####[facility] [address] [place], [address] Urea nitrogen [Mass/Vol] 16 mg/dL Normal 4-19 [facility] Comment on above: Performed By: #### L 500.2500, L100.0100 ####[facility] [address] [place], [address] Basophil percentageOrdered B y: Emmanuel Kaiser on 03-23-2025 Basophils/100 WBC (Bld) 0.7 % 0-1 [facility] CBC W/Diff, Automatedon 03-09 Absolute Lymph 0.28 X10 3/uL Low 0.83-4.51 [facility] Comment on above: Performed By: #### L 500.2500, L100.0100 ####[facility] [address] [place], [address] Absolute Neut 2.4 X10 3/uL Normal 2.0-7.7 [facility] Comment on above: Performed By: #### L 500.2500, L100.0100 ####[facility] [address] [place], [address] Basophils/100 WBC (Bld) 0.7 % Normal 0-1 [facility] Comment on above: Performed By: #### L 500.2500, L100.0100 ####[facility] [address] [place], [address] Eosinophils/100 WBC (Bld) 0.3 % Normal 0-5 [facility] Comment on above: Performed By: #### L 500.2500, L100.0100 ####[facility] [address] [place], [address] Erythrocyte distribution width (RBC) [Ratio] 17.4 % High 11.6-14.6 [facility] Comment on above: Performed By: #### L 500.2500, L100.0100 ####[facility] [address] [place], [address] Hematocrit (Bld) [Volume fraction] 26.1 % Low 40-54 [facility] Comment on above: Performed By: #### L 500.2500, L100.0100 ####[facility] [address] [place], [address] Hemoglobin (Bld) [Mass/Vol] 8.3 g/dL Low 13.0-16.5 [facility] Comment on above: Performed By: #### L 500.2500, L100.0100 ####[facility] [address] [place], [address] IG% 2.700 High 0.0-0.9 [facility] Comment on above: Result Comment: IG% - Immature Granulocytes (promyelocytes, myelocytes andmetamyelocytes) > 1% indicates that a LEFT SHIFT is Present. Performed By: #### L 500.2500, L100.0100 ####[facility] [address] [place], [address] Lymphocytes/100 WBC (Bld) 9.5 % Low 19-41 [facility] Comment on above: Performed By: #### L 500.2500, L100.0100 ####[facility] [address] [place], [address] MCH (RBC) [Entitic mass] 23.4 pg Low 27.0-32.0 [facility] Comment on above: Performed By: #### L 500.2500, L100.0100 ####[facility] [address] [place], [address] MCHC (RBC) [Mass/Vol] 31.8 g/dL Low 32-36 [facility] Comment on above: Performed By: #### L 500.2500, L100.0100 ####[facility] [address] [place], [address] MCV (RBC) [Entitic vol] 73.5 fL Low 80-94 [facility] Comment on above: Performed By: #### L 500.2500, L100.0100 ####[facility] [address] [place], [address] Monocytes/100 WBC (Bld) 6.4 % Normal 0-10 [facility] Comment on above: Performed By: #### L 500.2500, L100.0100 ####[facility] [address] [place], [address] Neutrophils/100 WBC (Bld) 80.4 % High 47-70 [facility] Comment on above: Performed By: #### L 500.2500, L100.0100 ####[facility] [address] [place], [address] Nucleated RBC (Bld) [#/Vol] 0 10*3/uL Normal 0-5 [facility] Comment on above: Performed By: #### L 500.2500, L100.0100 ####[facility] [address] [place], [address] Platelet mean volume (Bld) [Entitic vol] 9.1 fL Normal 6.2-12.0 [facility] Comment on above: Performed By: #### L 500.2500, L100.0100 ####[facility] [address] [place], [address] Platelets (Bld) [#/Vol] 187 10*3/uL Normal 150-450 [facility] Comment on above: Performed By: #### L 500.2500, L100.0100 ####[facility] [address] [place], [address] RBC (Bld) [#/Vol] 3.55 10*6/uL Low 4.6-6.2 [facility] Comment on above: Performed By: #### L 500.2500, L100.0100 ####[facility] [address] [place], [address] RDW SD 46.8 fl High 35.1-43.9 [facility] Comment on above: Performed By: #### L 500.2500, L100.0100 ####[facility] [address] [place], [address] WBC (Bld) [#/Vol] 3.0 10*3/uL Low 4.4-11.0 [facility] Comment on above: Performed By: #### L 500.2500, L100.0100 ####[facility] [address] [place], [address] Eosinophil percentageOrdered By: Emmanuel Kaiser on 03-23-2025 Eosinophils/100 WBC (Bld) 0.3 % 0-5 [facility] Immature granulocytes/100 WB C Auto (Bld)Ordered By: Emmanuel Kaiser on 03-23-2025 Immature granulocytes/100 WBC (Bld) 2.700 % High 0.0-0.9 [facility] Comment on above: IG% - Immature Granu locytes (promyelocytes, myelocytes and metamyelocytes) > 1% indicates that a LEFT SHIFT is Present. Monocyte percentageOrdered B y: Emmanuel Kaiser on 03-23-2025 Monocytes/100 WBC (Bld) 6.4 % 0-10 [facility] Nucleated red blood cell per centageOrdered By: Emmanuel Kaiser on 03-23-2025 Nucleated RBC/100 WBC (Bld) [Ratio] 0 % 0-5 [facility] Bilirubin, totalOrdered By: Sayra Fuentes on 03-22-2025 Bilirubin [Mass/Vol] 0.28 mg/dL 0.00-1.30 [facility] Blood manual differential co mment interpretation (narrative result)Ordered By: Sayra Fuentes on 03-22-2025 Manual differential comment [place] (Bld) [Interp] S [facility] CBC W/Diff, Automatedon 03-09 SMEAR COMMENT S Normal [facility] Comment on above: Performed By: #### L 100.0100, L500.4050 ####[facility] [address] [place], [address] Comprehensive Metabolic Prof ilon 03-22-2025 Albumin [Mass/Vol] 3.1 g/dL Low 3.4-4.8 [facility] Comment on above: Performed By: #### L 100.0100, L500.4050 ####[facility] [address] [place], [address] Albumin/Globulin [Mass ratio] 1.4 {ratio} Normal 0.9-2.4 [facility] Comment on above: Performed By: #### L 100.0100, L500.4050 ####[facility] [address] [place], [address] ALK PHOS 61 U/L Normal 40-129 [facility] Comment on above: Performed By: #### L 100.0100, L500.4050 ####[facility] [address] [place], [address] ALT [Catalytic activity/Vol] 7 U/L Normal <=46 [facility] Comment on above: Performed By: #### L 100.0100, L500.4050 ####[facility] [address] [place], [address] AST [Catalytic activity/Vol] 15 U/L Normal <=37 [facility] Comment on above: Performed By: #### L 100.0100, L500.4050 ####[facility] [address] [place], [address] Bilirubin [Mass/Vol] 0.28 mg/dL Normal 0.00-1.30 [facility] Comment on above: Performed By: #### L 100.0100, L500.4050 ####[facility] [address] [place], [address] BUN/CRE 15.1 RATIO Normal 10-20 [facility] Comment on above: Performed By: #### L 100.0100, L500.4050 ####[facility] [address] [place], [address] Calcium [Mass/Vol] 8.3 mg/dL Normal 7.6-11.0 [facility] Comment on above: Performed By: #### L 100.0100, L500.4050 ####[facility] [address] [place], [address] Chloride [Moles/Vol] 103 mmol/L Normal 98-108 [facility] Comment on above: Performed By: #### L 100.0100, L500.4050 ####[facility] [address] [place], [address] CO2 [Moles/Vol] 13.8 mmol/L Low 21.0-32.0 [facility] Comment on above: Performed By: #### L 100.0100, L500.4050 ####[facility] [address] [place], [address] Creatinine [Mass/Vol] 0.91 mg/dL Normal 0.70-1.20 [facility] Comment on above: Performed By: #### L 100.0100, L500.4050 ####[facility] [address] [place], [address] ECRCL 72.05 ml/min Normal 50-250 [facility] Comment on above: Performed By: #### L 100.0100, L500.4050 ####[facility] [address] [place], [address] GAP 15 Normal 5-15 [facility] Comment on above: Performed By: #### L 100.0100, L500.4050 ####[facility] [address] [place], [address] GFR/1.73 sq M.predicted among non-blacks MDRD (S/P/Bld) [Vol rate/Area] 91 mL/min/{1.73_m2} Normal >60 [facility] Comment on above: Result Comment: mL/m in/1.73m2 CKD-EPI Creatinine Equation (2020) Performed By: #### L 100.0100, L500.4050 ####[facility] [address] [place], [address] Globulin (S) [Mass/Vol] 2.2 g/dL Normal 2.2-4.2 [facility] Comment on above: Performed By: #### L 100.0100, L500.4050 ####[facility] [address] [place], [address] Glucose [Mass/Vol] 153 mg/dL High 70-99 [facility] Comment on above: Performed By: #### L 100.0100, L500.4050 ####[facility] [address] [place], [address] Potassium [Moles/Vol] 4.1 mmol/L Normal 3.3-5.1 [facility] Comment on above: Performed By: #### L 100.0100, L500.4050 ####[facility] [address] [place], [address] Sodium [Moles/Vol] 132 mmol/L Low 133-145 [facility] Comment on above: Performed By: #### L 100.0100, L500.4050 ####[facility] [address] [place], [address] T PROT 5.3 g/dL Low 5.9-8.4 [facility] Comment on above: Performed By: #### L 100.0100, L500.4050 ####[facility] [address] [place], [address] Urea nitrogen [Mass/Vol] 14 mg/dL Normal 4-19 [facility] Comment on above: Performed By: #### L 100.0100, L500.4050 ####[facility] [address] [place], [address] EGD Reporton 03-22-2025 EGD Report Normal [facility] Gram Stainon 03-22-2025 GS Acceptable Specimen? Yes (<25 Epithelial cells per/lpf) Gram Stain 2+ Gram positive cocci Rare Gram positive rods No Epithelial cells Normal [facility] Comment on above: Performed By: #### M 100.2400, M100.2000 ####[facility] [address] [place], [place], [id number] Laboratory - Chemistry and C hemistry - challengeOrdered By: Sayra Alfredo on 03-22-2025 AST [Catalytic activity/Vol] 15 U/L <38 [facility] MR/POSTOP.ANEon 03-22-2025 MR/POSTOP.ANE Normal [facility] MR/ZDQGVOXI7xv 03-22-2025 MR/POSTOPAN2 Normal [facility] No Panel InformationOrdered By: Sayra Alfredo on 03-22-2025 15 U/L <38 [facility] RESPIRATORY PANEL MOLECULARo n 03-22-2025 RP PANEL Normal [facility] Comment on above: Performed By: #### M 100.638 ####[facility] [address] [place], [place], [id number] Serum globulin measurementOr dered By: Sayra Fuentes 03-22-2025 Globulin (S) [Mass/Vol] 2.2 g/dL 2.2-4.2 [facility] Serum or plasma alanine kong otransferase (ALT) measurementOrdered By: Sayra Alfredo 03-22-2025 ALT [Catalytic activity/Vol] 7 U/L <47 [facility] Serum or plasma albumin deangelo urement (mass/volume)Ordered By: Sayra Alfredo 03-22-2025 Albumin [Mass/Vol] 3.1 g/dL Low 3.4-4.8 [facility] Serum or plasma albumin/glob ulin mass ratioOrdered By: Sayra Alfredo 03-22-2025 Albumin/Globulin [Mass ratio] 1.4 {ratio} 0.9-2.4 [facility] Serum or plasma alkaline alie sphatase measurementOrdered By: Sayra Alfredo 03-22-2025 ALP [Catalytic activity/Vol] 61 U/L 40-129 [facility] Surgery Specimen Level Alina 03-22-2025 Surgery Specimen Level IV Normal [facility] Comment on above: Performed By: #### P SUIV ####[facility] [address] [place], [place], [id number] Total proteinOrdered By: Aut umn White on 03-22-2025 Protein [Mass/Vol] 5.3 g/dL Low 5.9-8.4 [facility] Absolute lymphocyte countOrd ered By: Khalif Horan on 03-21-2025 Lymphocytes Auto (Unsp spec) [#/Vol] 0.77 10*3/uL Low 0.83-4.51 [facility] Anion gap in Serum or Plasma Ordered By: Khalif Horan on 03-21-2025 Anion gap [Moles/Vol] 15 mmol/L 5-15 [facility] Automated blood erythrocyte countOrdered By: Khalif Horan on 03-21-2025 RBC (Bld) [#/Vol] 4.03 10*6/uL Low 4.6-6.2 [facility] Comment on above: Order Comment: REDRA W. PREVIOUS SPECIMEN REJECTED DUE TOCLOTTED. 03/21/25 1033 Kristin Harvey. Performed By: #### L 100.0100 ####[facility] [address] [place], [place], [id number] Automated blood hematocrit ( percentage)Ordered By: Khalif Horan on 03-21-2025 Hematocrit (Bld) [Volume fraction] 29.5 % Low 40-54 [facility] Comment on above: Order Comment: REDRA W. PREVIOUS SPECIMEN REJECTED DUE TOCLOTTED. 03/21/25 1033 Kristin Harvey. Performed By: #### L 100.0100 ####[facility] [address] [place], [place], [id number] Automated lymphocyte count a s percentage of total leukocytesOrdered By: Khalif Horan on 03-21-2025 Lymphocytes/100 WBC Auto (Unsp spec) 19.8 % 19-41 [facility] BUN/creatinine ratioOrdered By: Khalif Alvarezana on 03-21-2025 Urea nitrogen/Creatinine [Mass ratio] 15.5 mg/mg 10-20 [facility] Basophil percentageOrdered B y: Khalif Horan on 03-21-2025 Basophils/100 WBC (Bld) 0.8 % Normal 0-1 [facility] Comment on above: Order Comment: REDRA W. PREVIOUS SPECIMEN REJECTED DUE TOCLOTTED. 03/21/25 1033 Kristin Harvey. Performed By: #### L 100.0100 ####[facility] [address] [place], [address] Bilirubin, totalOrdered By: Khalifhussain Horan on 03-21-2025 Bilirubin [Mass/Vol] 0.43 mg/dL 0.00-1.30 [facility] CBC W/Diff, Automatedon 03-09 Absolute Lymph 0.77 X10 3/uL Low 0.83-4.51 [facility] Comment on above: Order Comment: REDRA W. PREVIOUS SPECIMEN REJECTED DUE TOCLOTTED. 03/21/25 1033 Kristin Harvey. Performed By: #### L 100.0100 ####[facility] [address] [place], [address] Absolute Neut 2.2 X10 3/uL Normal 2.0-7.7 [facility] Comment on above: Order Comment: REDRA W. PREVIOUS SPECIMEN REJECTED DUE TOCLOTTED. 03/21/25 1033 Kristin Harvey. Performed By: #### L 100.0100 ####[facility] [address] [place], [address] IG% 1.300 High 0.0-0.9 [facility] Comment on above: Order Comment: REDRA W. PREVIOUS SPECIMEN REJECTED DUE TOCLOTTED. 03/21/25 1033 Kristin Harvey. Result Comment: IG% - Immature Granulocytes (promyelocytes, myelocytes andmetamyelocytes) > 1% indicates that a LEFT SHIFT is Present. Performed By: #### L 100.0100 ####[facility] [address] [place], [address] Lymphocytes/100 WBC (Bld) 19.8 % Normal 19-41 [facility] Comment on above: Order Comment: REDRA W. PREVIOUS SPECIMEN REJECTED DUE TOCLOTTED. 03/21/25 1033 Kristin Harvey. Performed By: #### L 100.0100 ####[facility] [address] [place], [address] MCHC (RBC) [Mass/Vol] 32.2 g/dL Normal 32-36 [facility] Comment on above: Order Comment: REDRA W. PREVIOUS SPECIMEN REJECTED DUE TOCLOTTED. 03/21/25 1033 Kristin Harvey. Performed By: #### L 100.0100 ####[facility] [address] [place], [address] Nucleated RBC (Bld) [#/Vol] 0 10*3/uL Normal 0-5 [facility] Comment on above: Order Comment: REDRA W. PREVIOUS SPECIMEN REJECTED DUE TOCLOTTED. 03/21/25 1033 Kristin Harvey. Performed By: #### L 100.0100 ####[facility] [address] [place], [address] Platelet mean volume (Bld) [Entitic vol] 8.8 fL Normal 6.2-12.0 [facility] Comment on above: Order Comment: REDRA W. PREVIOUS SPECIMEN REJECTED DUE TOCLOTTED. 03/21/25 1033 Kristin Harvey. Performed By: #### L 100.0100 ####[facility] [address] [place], [address] RDW SD 47.2 fl High 35.1-43.9 [facility] Comment on above: Order Comment: REDRA W. PREVIOUS SPECIMEN REJECTED DUE TOCLOTTED. 03/21/25 1033 Kristin Harvey. Performed By: #### L 100.0100 ####[facility] [address] [place], [address] Absolute Neut Normal 2.0-7.7 [facility] Comment on above: Result Comment: This specimen has been REJECTED due to Laboratory criteria:Clotted.LYNDON has been notified of need of recollection.03/21/25 1032 Kristin Harvey Performed By: #### L 500.4050, L501.2450, L100.0100 ####[facility] [address] [place], [address] HCT Normal 40-54 [facility] Comment on above: Result Comment: This specimen has been REJECTED due to Laboratory criteria:Clotted.LYNDON has been notified of need of recollection.03/21/251031 Kristin Harvey Performed By: #### L 500.4050, L501.2450, L100.0100 ####[facility] [address] [place], [address] HGB Normal 13.0-16.5 [facility] Comment on above: Result Comment: This specimen has been REJECTED due to Laboratory criteria:Clotted.LYNDON has been notified of need of recollection.03/21/252 Kristin Harvey Performed By: #### L 500.4050, L501.2450, L100.0100 ####[facility] [address] [place], [address] MCH Normal 27.0-32.0 [facility] Comment on above: Result Comment: This specimen has been REJECTED due to Laboratory criteria:Clotted.LYNDON has been notified of need of recollection.03/21/251031 Kristin Harvey Performed By: #### L 500.4050, L501.2450, L100.0100 ####[facility] [address] [place], [address] MCHC Normal 32-36 [facility] Comment on above: Result Comment: This specimen has been REJECTED due to Laboratory criteria:Clotted.LYNDON has been notified of need of recollection.03/21/25 1032 Kristin Harvey Performed By: #### L 500.4050, L501.2450, L100.0100 ####[facility] [address] [place], [address] MCV Normal 80-94 [facility] Comment on above: Result Comment: This specimen has been REJECTED due to Laboratory criteria:Clotted.LYNDON has been notified of need of recollection.03/21/25 1032 Kristin Harvey Performed By: #### L 500.4050, L501.2450, L100.0100 ####[facility] [address] [place], [address] NEUT% Normal 47-70 [facility] Comment on above: Result Comment: This specimen has been REJECTED due to Laboratory criteria:Clotted.LYNDON has been notified of need of recollection.03/21/25 1032 Kristin Harvey Performed By: #### L 500.4050, L501.2450, L100.0100 ####[facility] [address] [place], [address] PLT Normal 150-450 [facility] Comment on above: Result Comment: This specimen has been REJECTED due to Laboratory criteria:Clotted.LYNDON has been notified of need of recollection.03/21/25 1032 Kristin Harvey Performed By: #### L 500.4050, L501.2450, L100.0100 ####[facility] [address] [place], [address] RBC Normal 4.6-6.2 [facility] Comment on above: Result Comment: This specimen has been REJECTED due to Laboratory criteria:Clotted.LYNDON has been notified of need of recollection.03/21/25 1032 Kristin Harvey Performed By: #### L 500.4050, L501.2450, L100.0100 ####[facility] [address] [place], [address] RDW CV Normal 11.6-14.6 [facility] Comment on above: Result Comment: This specimen has been REJECTED due to Laboratory criteria:Clotted.LYNDON has been notified of need of recollection.03/21/25 1032 Kristin Harvey Performed By: #### L 500.4050, L501.2450, L100.0100 ####[facility] [address] [place], [address] RDW SD Normal 35.1-43.9 [facility] Comment on above: Result Comment: This specimen has been REJECTED due to Laboratory criteria:Clotted.LYNDON has been notified of need of recollection.03/21/25 1032 Kristin Harvey Performed By: #### L 500.4050, L501.2450, L100.0100 ####[facility] [address] [place], [address] WBC Normal 4.4-11.0 [facility] Comment on above: Result Comment: This specimen has been REJECTED due to Laboratory criteria:Clotted.LYNDON has been notified of need of recollection.03/21/25 1032 Kristin Harvey Performed By: #### L 500.4050, L501.2450, L100.0100 ####[facility] [address] [place], [address] CT Chest, Abd, Pel w/Contras ton 03-21-2025 CT Chest, Abd, Pel w/Contrast Normal [facility] Carbon dioxide, total [Moles /volume] in Central venous bloodOrdered By: Khalif Horan on 03-21-2025 CO2 [Moles/Vol] 15.6 mmol/L Low 21.0-32.0 [facility] Chloride assayOrdered By: Azam Horan on 03-21-2025 Chloride [Moles/Vol] 101 mmol/L 98-108 [facility] Comprehensive Metabolic Prof ilon 03-21-2025 Albumin [Mass/Vol] 2.9 g/dL Low 3.4-4.8 [facility] Comment on above: Performed By: #### L 500.4050, L501.2450, L100.0100 ####[facility] [address] [place], [address] Albumin/Globulin [Mass ratio] 1.5 {ratio} Normal 0.9-2.4 [facility] Comment on above: Performed By: #### L 500.4050, L501.2450, L100.0100 ####[facility] [address] [place], [address] ALK PHOS 62 U/L Normal 40-129 [facility] Comment on above: Performed By: #### L 500.4050, L501.2450, L100.0100 ####[facility] [address] [place], [address] ALT [Catalytic activity/Vol] 6 U/L Normal <=46 [facility] Comment on above: Performed By: #### L 500.4050, L501.2450, L100.0100 ####[facility] [address] [place], [address] Chloride [Moles/Vol] 101 mmol/L Normal 98-108 [facility] Comment on above: Performed By: #### L 500.4050, L501.2450, L100.0100 ####[facility] [address] [place], [address] GAP 15 Normal 5-15 [facility] Comment on above: Performed By: #### L 500.4050, L501.2450, L100.0100 ####[facility] [address] [place], [address] Globulin (S) [Mass/Vol] 2.0 g/dL Low 2.2-4.2 [facility] Comment on above: Performed By: #### L 500.4050, L501.2450, L100.0100 ####[facility] [address] [place], [address] Potassium [Moles/Vol] 3.6 mmol/L Normal 3.3-5.1 [facility] Comment on above: Performed By: #### L 500.4050, L501.2450, L100.0100 ####[facility] [address] [place], [address] Sodium [Moles/Vol] 132 mmol/L Low 133-145 [facility] Comment on above: Performed By: #### L 500.4050, L501.2450, L100.0100 ####[facility] [address] [place], [address] Emergency Department Summary on 03-21-2025 Emergency Department Summary Normal [facility] Eosinophil percentageOrdered By: Khalif Horan on 03-21-2025 Eosinophils/100 WBC (Bld) 6.7 % High 0-5 [facility] Comment on above: Order Comment: REDRA W. PREVIOUS SPECIMEN REJECTED DUE TOCLOTTED. 03/21/25 1033 Kristin Harvey. Performed By: #### L 100.0100 ####[facility] [address] [place], [address] Erythrocyte distribution wid th ratioOrdered By: Khalif Horan on 03-21-2025 Erythrocyte distribution width (RBC) [Ratio] 17.7 % High 11.6-14.6 [facility] Comment on above: Order Comment: REDRA W. PREVIOUS SPECIMEN REJECTED DUE TOCLOTTED. 03/21/25 1033 Kristin Harvey. Performed By: #### L 100.0100 ####[facility] [address] [place], [address] Erythrocyte distribution wid th standard deviationOrdered By: Khalif Horan on 03-21-2025 Erythrocyte distribution width (RBC) [Ratio] 47.2 fl High 35.1-43.9 [facility] Glomerular filtration rate ( GFR) estimation/1.73 sq m using serum, plasma, or whole bOrdered By: Khalif Horan on 03-21-2025 GFR/1.73 sq M.predicted among non-blacks MDRD (S/P/Bld) [Vol rate/Area] 91 mL/min/{1.73_m2} >60 [facility] Gram stainOrdered By: Sayra White on 03-21-2025 Microscopic observation Gram stain Nom (Unsp spec) [facility] H AND P Exam - Hospitaliston 03-21-2025 H&P Exam - Hospitalist Normal [facility] Hemoglobin measurementOrdere d By: Khalif Horan on 03-21-2025 Hemoglobin (Bld) [Mass/Vol] 9.5 g/dL Low 13.0-16.5 [facility] Comment on above: Order Comment: ABDIAS Santana PREVIOUS SPECIMEN REJECTED DUE TOCLOTTED. 03/21/25 1033 Kristin Harvey. Performed By: #### L 100.0100 ####[facility] [address] [place], [place], [address] Immature granulocytes/100 WB C Auto (Bld)Ordered By: Khalif Horan on 03-21-2025 Immature granulocytes/100 WBC (Bld) 1.300 % High 0.0-0.9 [facility] Legionella Antigen Urineon 0 03-21-2025 LEGU Normal [facility] Comment on above: Performed By: #### M 300.4500, M300.4600 ####[facility] [address] [place], [place], [address] Lipaseon 03-21-2025 Lipase [Catalytic activity/Vol] 23 U/L Normal 13-75 [facility] Comment on above: Result Comment: Celina parker note:LIPASE revised reference range effective 23.New Lipase methodology. Expected to produce lower valuesthan the previous assay method.NEW Reference Range: 13 - 75 U/L Performed By: #### L 500.4050, L501.2450, L100.0100 ####[facility] [address] [place], [address] Lipase measurementOrdered By : Khalif Horan on 03-21-2025 Lipase [Catalytic activity/Vol] 23 U/L 13-75 [facility] Comment on above: Please note:LIPASE r evised reference range effective 23. New Lipase methodology. Expected to produce lower values than the previous assay method. NEW Reference Range: 13 - 75 U/L M8200.1000on 03-21-2025 M8200.1000 Normal Reference Ran ge = Negative MRSA DNA Nose Ql DAVID+probe GeneXpert Instrument, PCR method MRSA PCR MRSA NEGATIVE Normal [facility] Comment on above: Performed By: #### M 8200.1000 ####[facility] [address] [place], [place], [id number] MCV (mean corpuscular volume ) determinationOrdered By: Khalif Horan on 03-21-2025 MCV (RBC) [Entitic vol] 73.2 fL Low 80-94 [facility] Comment on above: Order Comment: ABDIAS Santana PREVIOUS SPECIMEN REJECTED DUE TOCLOTTED. 03/21/25 1033 Kristin Harvey. Performed By: #### L 100.0100 ####[facility] [address] [place], [place], [id number] MR/CON.PCM.GIon 03-21-2025 MR/CON.PCM.GI Normal [facility] Magnesiumon 03-21-2025 Magnesium [Mass/Vol] 1.7 mg/dL Normal 1.5-2.2 [facility] Comment on above: Order Comment: Comme nts: May add to ED labsComments: may add to ED labs Performed By: #### L 501.5200, L501.2300 ####[facility] [address] [facility] [place], [address] Magnesium measurement (mass/ volume)Ordered By: Sayra Fuentes on 03-21-2025 Magnesium (Unsp spec) [Mass/Vol] 1.7 mg/dL 1.5-2.2 [facility] Mean corpuscular hemoglobin (MCH) determinationOrdered By: Khalif Horan on 03-21-2025 MCH (RBC) [Entitic mass] 23.6 pg Low 27.0-32.0 [facility] Comment on above: Order Comment: REDRA W. PREVIOUS SPECIMEN REJECTED DUE TOCLOTTED. 03/21/25 1033 Kristin Harvey. Performed By: #### L 100.0100 ####[facility] [address] [place], [place], [id number] Microbial respiratory cultur eOrdered By: Sayra Fuentes on 03-21-2025 Microorganism identified Cx Nom (Unsp spec) Meth. resistant Staph. aureus Abnormal [facility] Microorganism identified Cx Nom (Unsp spec) Escherichia coli Abnormal [facility] Monocyte percentageOrdered B y: Khalif Horan on 03-21-2025 Monocytes/100 WBC (Bld) 14.1 % High 0-10 [facility] Comment on above: Order Comment: RED W. PREVIOUS SPECIMEN REJECTED DUE TOCLOTTED. 03/21/25 1033 Kristin Harvey. Performed By: #### L 100.0100 ####[facility] [address] [place], [place], [id number] Nasal methicillin resistant Staphylococcus aureus (MRSA) DNA detection by PCROrdered By: Sayra Fuentes on 03-21-2025 MRSA DNA DAVID+probe Ql (Nose) [facility] Neutrophil percentageOrdered By: Khalif Horan on 03-21-2025 Neutrophils/100 WBC (Bld) 57.3 % Normal 47-70 [facility] Comment on above: Order Comment: RED W. PREVIOUS SPECIMEN REJECTED DUE TOCLOTTED. 03/21/25 1033 Kristin Harvey. Performed By: #### L 100.0100 ####[facility] [address] [place], [place], [id number] No Panel InformationOrdered By: Khalif Horan on 03-21-2025 17 U/L <38 [facility] Phosphoruson 03-21-2025 Phosphate [Mass/Vol] 3.9 mg/dL Normal 2.7-4.5 [facility] Comment on above: Order Comment: Comme nts: May add to ED labsComments: may add to ED labs Performed By: #### L 501.9461, L501.2300 ####[facility] [address] [place], [place], [id number] Platelet countOrdered By: Azam Horan on 03-21-2025 Platelets (Bld) [#/Vol] 208 10*3/uL Normal 150-450 [facility] Comment on above: Order Comment: ABDIAS Santana PREVIOUS SPECIMEN REJECTED DUE TOCLOTTED. 03/21/25 1033 Kristin Harvey. Performed By: #### L 100.0100 ####[facility] [address] [place], [address] Potassium measurement (mass/ volume)Ordered By: Khalif Horan on 03-21-2025 Potassium (Unsp spec) [Mass/Vol] 3.6 mmol/L 3.3-5.1 [facility] Respiratory pathogens detect ion panel by molecular detection methodOrdered By: Sayra Fuentes on 03-21-2025 Respiratory pathogens DNA and RNA panel DAVID+probe (Resp) [facility] Serum creatinine measurement (mass/volume)Ordered By: Khalif Horan on 03-21-2025 Creatinine [Mass/Vol] 0.89 mg/dL 0.70-1.20 [facility] Serum globulin measurementOr dered By: Khalif Horan on 03-21-2025 Globulin (S) [Mass/Vol] 2.0 g/dL Low 2.2-4.2 [facility] Serum glucose measurement (m ass/volume)Ordered By: Khalif Horan on 03-21-2025 Glucose [Mass/Vol] 87 mg/dL 70-99 [facility] Serum or plasma alanine kong otransferase (ALT) measurementOrdered By: Khalif Horan on 03-21-2025 ALT [Catalytic activity/Vol] 6 U/L <47 [facility] Serum or plasma albumin deangelo urement (mass/volume)Ordered By: Khalif Horan on 03-21-2025 Albumin [Mass/Vol] 2.9 g/dL Low 3.4-4.8 [facility] Serum or plasma albumin/glob ulin mass ratioOrdered By: Khalif Horan on 03-21-2025 Albumin/Globulin [Mass ratio] 1.5 {ratio} 0.9-2.4 [facility] Serum or plasma alkaline alie sphatase measurementOrdered By: Khalif Horan on 03-21-2025 ALP [Catalytic activity/Vol] 62 U/L 40-129 [facility] Serum or plasma calcium deangelo urement (mass/volume)Ordered By: Khalif Horan on 03-21-2025 Calcium [Mass/Vol] 8.3 mg/dL 7.6-11.0 [facility] Serum or plasma urea nitroge n measurement (mass/volume)Ordered By: Khalif Horan on 03-21-2025 Urea nitrogen [Mass/Vol] 14 mg/dL 4-19 [facility] Sodium levelOrdered By: Khalif Horan on 03-21-2025 Sodium [Moles/Vol] 132 mmol/L Low 133-145 [facility] Strep pneumoniae Antig(UR,CS F)on 03-21-2025 STPAG Normal [facility] Comment on above: Performed By: #### M 300.4500, M300.4600 ####[facility] [address] [place], [place], [id number] Total proteinOrdered By: Lashon Horan on 03-21-2025 Protein [Mass/Vol] 4.9 g/dL Low 5.9-8.4 [facility] Urine Legionella pneumophila antigen detectionOrdered By: Sayra Fuentes on 03-21-2025 L. pneumophila Ag Ql (U) [facility] White blood cell (WBC) count Ordered By: Khalif Horan on 03-21-2025 WBC (Bld) [#/Vol] 3.9 10*3/uL Low 4.4-11.0 [facility] Comment on above: Order Comment: ABDIAS Santana PREVIOUS SPECIMEN REJECTED DUE TOCLOTTED. 03/21/25 1033 Kristin Harvey. Performed By: #### L 100.0100 ####[facility] [address] [place], [place], [id number] Absolute lymphocyte countOrd ered By: Angela Rodriguez on 03-15-2025 Lymphocytes Auto (Unsp spec) [#/Vol] 0.95 10*3/uL 0.83-4.51 [facility] Anion gap in Serum or Plasma Ordered By: Jackietonny Rodriguez on 03-15-2025 Anion gap [Moles/Vol] 12 mmol/L 5- [facility] Automated lymphocyte count a s percentage of total leukocytesOrdered By: [facility] on 03-15-2025 Lymphocytes/100 WBC Auto (Unsp spec) 16.9 % Low 19- [facility] BUN/creatinine ratioOrdered By: [facility] Michael on 03-15-2025 Urea nitrogen/Creatinine [Mass ratio] 12.2 mg/mg 10- [facility] Basophil percentageOrdered B y: Angela Rodriguez on 03-15-2025 Basophils/100 WBC (Bld) 0.7 % 0-1 [facility] Bilirubin, totalOrdered By: [facility] Rodriguez on 03-15-2025 Bilirubin [Mass/Vol] 0.41 mg/dL 0.00-1.30 [facility] CBC W/Diff, Automatedon Absolute Lymph 0.95 X10 3/uL Normal 0.83-4.51 [facility] Comment on above: Performed By: #### L 501.2300, L500.4050, L100.0100 ####[facility] [address] [place], [address] Absolute Neut 3.7 X10 3/uL Normal 2.0-7.7 [facility] Comment on above: Performed By: #### L 501.2300, L500.4050, L100.0100 ####[facility] [address] [place], [address] Basophils/100 WBC (Bld) 0.7 % Normal 0-1 [facility] Comment on above: Performed By: #### L 501.2300, L500.4050, L100.0100 ####[facility] [address] [place], [address] Eosinophils/100 WBC (Bld) 4.3 % Normal 0-5 [facility] Comment on above: Performed By: #### L 501.2300, L500.4050, L100.0100 ####[facility] [address] [place], [address] Erythrocyte distribution width (RBC) [Ratio] 18.2 % High 11.6-14.6 [facility] Comment on above: Performed By: #### L 501.2300, L500.4050, L100.0100 ####[facility] [address] [place], [address] Hematocrit (Bld) [Volume fraction] 30.8 % Low 40-54 [facility] Comment on above: Performed By: #### L 501.2300, L500.4050, L100.0100 ####[facility] [address] [place], [address] Hemoglobin (Bld) [Mass/Vol] 10.0 g/dL Low 13.0-16.5 [facility] Comment on above: Performed By: #### L 501.2300, L500.4050, L100.0100 ####[facility] [address] [place], [address] IG% 1.800 High 0.0-0.9 [facility] Comment on above: Result Comment: IG% - Immature Granulocytes (promyelocytes, myelocytes andmetamyelocytes) > 1% indicates that a LEFT SHIFT is Present. Performed By: #### L 501.2300, L500.4050, L100.0100 ####[facility] [address] [place], [address] Lymphocytes/100 WBC (Bld) 16.9 % Low 19-41 [facility] Comment on above: Performed By: #### L 501.2300, L500.4050, L100.0100 ####[facility] [address] [place], [address] MCH (RBC) [Entitic mass] 23.5 pg Low 27.0-32.0 [facility] Comment on above: Performed By: #### L 501.2300, L500.4050, L100.0100 ####[facility] [address] [place], [address] MCHC (RBC) [Mass/Vol] 32.5 g/dL Normal 32-36 [facility] Comment on above: Performed By: #### L 501.2300, L500.4050, L100.0100 ####[facility] [address] [place], [address] MCV (RBC) [Entitic vol] 72.5 fL Low 80-94 [facility] Comment on above: Performed By: #### L 501.2300, L500.4050, L100.0100 ####[facility] [address] [place], [address] Monocytes/100 WBC (Bld) 11.0 % High 0-10 [facility] Comment on above: Performed By: #### L 501.2300, L500.4050, L100.0100 ####[facility] [address] [place], [address] Neutrophils/100 WBC (Bld) 65.3 % Normal 47-70 [facility] Comment on above: Performed By: #### L 501.2300, L500.4050, L100.0100 ####[facility] [address] [place], [address] Nucleated RBC (Bld) [#/Vol] 0 10*3/uL Normal 0-5 [facility] Comment on above: Performed By: #### L 501.2300, L500.4050, L100.0100 ####[facility] [address] [place], [address] Platelet mean volume (Bld) [Entitic vol] 9.0 fL Normal 6.2-12.0 [facility] Comment on above: Performed By: #### L 501.2300, L500.4050, L100.0100 ####[facility] [address] [place], [address] Platelets (Bld) [#/Vol] 227 10*3/uL Normal 150-450 [facility] Comment on above: Performed By: #### L 501.2300, L500.4050, L100.0100 ####[facility] [address] [place], [address] RBC (Bld) [#/Vol] 4.25 10*6/uL Low 4.6-6.2 [facility] Comment on above: Performed By: #### L 501.2300, L500.4050, L100.0100 ####[facility] [address] [place], [address] RDW SD 47.4 fl High 35.1-43.9 [facility] Comment on above: Performed By: #### L 501.2300, L500.4050, L100.0100 ####[facility] [address] [place], [address] WBC (Bld) [#/Vol] 5.6 10*3/uL Normal 4.4-11.0 [facility] Comment on above: Performed By: #### L 501.2300, L500.4050, L100.0100 ####[facility] [address] [place], [address] Carbon dioxide, total [Moles /volume] in Central venous bloodOrdered By: Angela Rodriguez on 03-15-2025 CO2 [Moles/Vol] 17.9 mmol/L Low 21.0-32.0 [facility] Chloride assayOrdered By: Ivonne Rodriguez on 03-15-2025 Chloride [Moles/Vol] 105 mmol/L 98-108 [facility] Comprehensive Metabolic Prof ilon 03-15-2025 Albumin [Mass/Vol] 3.4 g/dL Normal 3.4-4.8 [facility] Comment on above: Performed By: #### L 501.2300, L500.4050, L100.0100 ####[facility] [address] [place], [address] Albumin/Globulin [Mass ratio] 1.4 {ratio} Normal 0.9-2.4 [facility] Comment on above: Performed By: #### L 501.2300, L500.4050, L100.0100 ####[facility] [address] [place], [address] ALK PHOS 66 U/L Normal 40-129 [facility] Comment on above: Performed By: #### L 501.2300, L500.4050, L100.0100 ####[facility] [address] [place], [address] ALT [Catalytic activity/Vol] 8 U/L Normal <=46 [facility] Comment on above: Performed By: #### L 501.2300, L500.4050, L100.0100 ####[facility] [address] [place], [address] AST [Catalytic activity/Vol] 19 U/L Normal <=37 [facility] Comment on above: Performed By: #### L 501.2300, L500.4050, L100.0100 ####[facility] [address] [place], [address] Bilirubin [Mass/Vol] 0.41 mg/dL Normal 0.00-1.30 [facility] Comment on above: Performed By: #### L 501.2300, L500.4050, L100.0100 ####[facility] [address] [place], [address] BUN/CRE 12.2 RATIO Normal 10-20 [facility] Comment on above: Performed By: #### L 501.2300, L500.4050, L100.0100 ####[facility] [address] [place], [address] Calcium [Mass/Vol] 8.6 mg/dL Normal 7.6-11.0 [facility] Comment on above: Performed By: #### L 501.2300, L500.4050, L100.0100 ####[facility] [address] [place], [address] Chloride [Moles/Vol] 105 mmol/L Normal 98-108 [facility] Comment on above: Performed By: #### L 501.2300, L500.4050, L100.0100 ####[facility] [address] [place], [address] CO2 [Moles/Vol] 17.9 mmol/L Low 21.0-32.0 [facility] Comment on above: Performed By: #### L 501.2300, L500.4050, L100.0100 ####[facility] [address] [place], [address] Creatinine [Mass/Vol] 1.07 mg/dL Normal 0.70-1.20 [facility] Comment on above: Performed By: #### L 501.2300, L500.4050, L100.0100 ####[facility] [address] [place], [address] ECRCL 61.39 ml/min Normal 50-250 [facility] Comment on above: Performed By: #### L 501.2300, L500.4050, L100.0100 ####[facility] [address] [place], [address] GAP 12 Normal 5-15 [facility] Comment on above: Performed By: #### L 501.2300, L500.4050, L100.0100 ####[facility] [address] [place], [address] GFR/1.73 sq M.predicted among non-blacks MDRD (S/P/Bld) [Vol rate/Area] 74 mL/min/{1.73_m2} Normal >60 [facility] Comment on above: Result Comment: mL/m in/1.73m2 CKD-EPI Creatinine Equation (2020) Performed By: #### L 501.2300, L500.4050, L100.0100 ####[facility] [address] [place], [address] Globulin (S) [Mass/Vol] 2.4 g/dL Normal 2.2-4.2 [facility] Comment on above: Performed By: #### L 501.2300, L500.4050, L100.0100 ####[facility] [address] [place], [address] Glucose [Mass/Vol] 98 mg/dL Normal 70-99 [facility] Comment on above: Performed By: #### L 501.2300, L500.4050, L100.0100 ####[facility] [address] [place], [address] Potassium [Moles/Vol] 3.7 mmol/L Normal 3.3-5.1 [facility] Comment on above: Performed By: #### L 501.2300, L500.4050, L100.0100 ####[facility] [address] [place], [address] Sodium [Moles/Vol] 134 mmol/L Normal 133-145 [facility] Comment on above: Performed By: #### L 501.2300, L500.4050, L100.0100 ####[facility] [address] [place], [address] T PROT 5.8 g/dL Low 5.9-8.4 [facility] Comment on above: Performed By: #### L 501.2300, L500.4050, L100.0100 ####[facility] [address] [place], [address] Urea nitrogen [Mass/Vol] 13 mg/dL Normal 4-19 [facility] Comment on above: Performed By: #### L 501.2300, L500.4050, L100.0100 ####[facility] [address] [place], [address] Eosinophil percentageOrdered By: Angela Rodriguez on 03-15-2025 Eosinophils/100 WBC (Bld) 4.3 % 0-5 [facility] Erythrocyte distribution wid th ratioOrdered By: Angela Rodriguez on 03-15-2025 Erythrocyte distribution width (RBC) [Ratio] 18.2 % High 11.6-14.6 [facility] Erythrocyte distribution wid th standard deviationOrdered By: [facility] Michael on 03-15-2025 Erythrocyte distribution width (RBC) [Ratio] 47.4 fl High 35.1-43.9 [facility] Ferritinon 03-15-2025 Ferritin [Mass/Vol] 550 ng/mL High 37-417 [facility] Comment on above: Order Comment: ADD O N FROM EARLIER TODAY, THANKS Performed By: #### L 503.6030, L503.6550, L503.0106 ####[facility] [address] [place], [address] Glomerular filtration rate ( GFR) estimation/1.73 sq m using serum, plasma, or whole bOrdered By: Angela Rodriguez on 03-15-2025 GFR/1.73 sq M.predicted among non-blacks MDRD (S/P/Bld) [Vol rate/Area] 74 mL/min/{1.73_m2} >60 [facility] Hematocrit Auto (Bld) [Volum e fraction]Ordered By: Angela Rodriguez on 03-15-2025 Hematocrit (Bld) [Volume fraction] 30.8 % Low 40-54 [facility] Hemoglobin measurementOrdere d By: Angela Rodriguez on 03-15-2025 Hemoglobin (Bld) [Mass/Vol] 10.0 g/dL Low 13.0-16.5 [facility] Immature granulocytes/100 WB C Auto (Bld)Ordered By: Angela Rodriguez on 03-15-2025 Immature granulocytes/100 WBC (Bld) 1.800 % High 0.0-0.9 [facility] Iron measurement (mass/mass) Ordered By: [facility] Rodriguez on 03-15-2025 Iron (Unsp spec) [Mass/Mass] 32 ug/dL Low 65-175 [facility] Iron+Iron Binding Capacityon 03-15-2025 TIBC 213 ug/dL Low 250-450 [facility] Comment on above: Order Comment: ADD O N FROM EARLIER TODAY, THANKS Performed By: #### L 503.6030, L503.6550, L503.0106 ####[facility] [address] [place], [place], [id number] MCV (mean corpuscular volume ) determinationOrdered By: Angela Rodriguez on 03-15-2025 MCV (RBC) [Entitic vol] 72.5 fL Low 80-94 [facility] Magnesiumon 03-15-2025 Magnesium [Mass/Vol] 1.9 mg/dL Normal 1.5-2.2 [facility] Comment on above: Performed By: #### L 501.5200 ####[facility] [address] [facility] [place], [place], [address] Magnesium measurement (mass/ volume)Ordered By: Angela Rodriguez on 03-15-2025 Magnesium (Unsp spec) [Mass/Vol] 1.9 mg/dL 1.5-2.2 [facility] Mean corpuscular hemoglobin (MCH) determinationOrdered By: Angela Rodriguez on 03-15-2025 MCH (RBC) [Entitic mass] 23.5 pg Low 27.0-32.0 [facility] [facility] Monocyte percentageOrdered B y: Angela Rodriguez on 03-15-2025 Monocytes/100 WBC (Bld) 11.0 % High 0-10 [facility] Neutrophil percentageOrdered By: Angela Rodriguez on 03-15-2025 Neutrophils/100 WBC (Bld) 65.3 % 47-70 [facility] No Panel InformationOrdered By: Angela Rodriguez on 03-15-2025 19 U/L <38 [facility] 181 ug/dL Low 228-428 [facility] Oncology Visit Reporton Oncology Visit Report Normal [facility] Phosphoruson 03-15-2025 Phosphate [Mass/Vol] 3.8 mg/dL Normal 2.7-4.5 [facility] Comment on above: Performed By: #### L 501.2300, L500.4050, L100.0100 ####[facility] [address] [facility] [place], [address] Platelet countOrdered By: Ivonne Rodriguez on 03-15-2025 Platelets (Bld) [#/Vol] 227 10*3/uL 150-450 [facility] Potassium measurement (mass/ volume)Ordered By: Angela Rodriguez on 03-15-2025 Potassium (Unsp spec) [Mass/Vol] 3.7 mmol/L 3.3-5.1 [facility] RBC Auto (Bld) [#/Vol]Ordere d By: Angela Rodriguez on 03-15-2025 RBC (Bld) [#/Vol] 4.25 10*6/uL Low 4.6-6.2 [facility] Serum creatinine measurement (mass/volume)Ordered By: Angela Rodriguez on 03-15-2025 Creatinine [Mass/Vol] 1.07 mg/dL 0.70-1.20 [facility] Serum globulin measurementOr dered By: Angela Rodriguez on 03-15-2025 Globulin (S) [Mass/Vol] 2.4 g/dL 2.2-4.2 [facility] Serum glucose measurement (m ass/volume)Ordered By: Angela Rodriguez on 03-15-2025 Glucose [Mass/Vol] 98 mg/dL 70-99 [facility] Serum or plasma alanine kong otransferase (ALT) measurementOrdered By: Angela Rodriguez on 03-15-2025 ALT [Catalytic activity/Vol] 8 U/L <47 [facility] Serum or plasma albumin deangelo urement (mass/volume)Ordered By: Angela Rodriguez on 03-15-2025 Albumin [Mass/Vol] 3.4 g/dL 3.4-4.8 [facility] Serum or plasma albumin/glob ulin mass ratioOrdered By: Angela Rodriguez on 03-15-2025 Albumin/Globulin [Mass ratio] 1.4 {ratio} 0.9-2.4 [facility] Serum or plasma alkaline alie sphatase measurementOrdered By: Angela Rodriguez on 03-15-2025 ALP [Catalytic activity/Vol] 66 U/L 40-129 [facility] Serum or plasma calcium deangelo urement (mass/volume)Ordered By: Angela Rodriguez on 03-15-2025 Calcium [Mass/Vol] 8.6 mg/dL 7.6-11.0 [facility] Serum or plasma ferritin samantha surement (mass/volume)Ordered By: Angela Rodriguez on 03-15-2025 Ferritin [Mass/Vol] 550 ng/mL High 37-417 [facility] Serum or plasma iron saturat ion measurement (mass fraction)Ordered By: Angela Rodriguez on 03-15-2025 Iron saturation [Mass fraction] 15.0 % 9-55 [facility] Serum or plasma urea nitroge n measurement (mass/volume)Ordered By: Angela Rodriguez on 03-15-2025 Urea nitrogen [Mass/Vol] 13 mg/dL 4-19 [facility] Sodium levelOrdered By: Jackie Rodriguez on 03-15-2025 Sodium [Moles/Vol] 134 mmol/L 133-145 [facility] Total proteinOrdered By: Antoni Rodriguez on 03-15-2025 Protein [Mass/Vol] 5.8 g/dL Low 5.9-8.4 [facility] Vitamin B12on 03-15-2025 Cobalamin (Vitamin B12) [Mass/Vol] 596 pg/mL Normal 180-914 [facility] Comment on above: Order Comment: ADD O N FROM EARLIER TODAY, THANKS Performed By: #### L 503.6030, L503.6550, L503.0106 ####[facility] [address] [place], [address] Vitamin B12 ser/plasOrdered By: Angela Rodriguez on 03-15-2025 Cobalamin (Vitamin B12) [Mass/Vol] 596 pg/mL 180-914 [facility] White blood cell (WBC) count Ordered By: Angela Rodriguez on 03-15-2025 WBC (Bld) [#/Vol] 5.6 10*3/uL 4.4-11.0 [facility] CBC W/Diff, Automatedon PATH REV N/A Normal [facility] Comment on above: Result Comment: AMENDED REPORT 03/10/251713 PATH REV previously reported as: [facility] Performed By: #### L 500.4050, L300.3900, L100.0100 ####[facility] [address] [place], [address] 36on 03-03-2025 36 Recent Visits Date Type Provider Dept 02/21/25 Office Visit Jacob Jennings, DO [facility] 12/30/24 Office Visit Jacob Jennings, DO [facility] 12/06/24 Office Visit Jcaob Jennings DO [facility] 10/20/24 Office [...] recent labs completed in chart? N/A None [facility] CBC W/Diff, Automatedon 02-08 PATH REV Reviewed Normal [facility] Comment on above: Result Comment: SEE REPORT IN PATIENT'S EMR AMENDED REPORT 02/28/25 0353 PATH REV previously reported as: March Performed By: #### L 500.3400, L501.5200, L500.2500, L501.2300, L100.0100 ####[facility] [address] [place], [address] 37on 02-21-2025 37 I do recommend resta rting your DuoNeb aerosols at least 3 times a day. Should take a multivitamin with a probiotic each day for many months. Please call spinning operator Dr. Malcolm for input on any med additions for your cough if things worsen. Notify us up if you have 1 week of purulent colored phlegm that is accompanied by more shortness of breath and a sense of feeling ill. Normal [facility] Office Visiton 02-21-2025 Follow-up visit [id number] Mirna Arshad 1955 M Date Provider Department Center 02/21/2025 [id number] JENNINGS [facility] Family History Problem Relation Age of Onset Coronary artery disease Mother Comments: CABG Coronary artery disease Sister Comments: CABG Stroke Mother Comments: age 77 Lung cancer Mother No Known Problems Sister No Known Problems Brother No Known Problems Sister No Known Problems Sister Diabetes Sister Coronary artery disease Father Comments: age 50 [place] - smoker Coronary artery disease Brother Comments: age 47 [place] Family Status - Relation Status Age at Mother 77 Sister Alive Sister Alive Brother Alive Sister Alive Sister Alive Father 50 Brother 47 Level of Service:13854 DE OFFICE/OUTPATIENT ESTABLISHED LOW MDM 20 MIN Reason for Visit and Comments: Hospital Follow-up [832] Normal [facility] Progress Noteon 02-21-2025 Progress Note [facility] [address] [facility] [id number] Visit type: Established Patient Reason [...] perhaps restarting Keytruda. Does not see his spinning operator routinely but has seen Dr. Malcolm in the past. Saw Dr. Chambers's senior officer a few days ago for follow-up after [...] tablet, Rfl: 1 Lancets (OneTouch Delica Plus Vuxyiv86A) [facility] , Disp: , Rfl: nitroglycerin (Nitrostat) 0.4 MG SL tablet, Place 1 tablet (0.4 mg) under the tongue every 5 minutes as needed for chest pain., Disp: 90 tablet, Rfl: 0 omeprazole (PriLOSEC) [address] capsule, Take 1 capsule (20 mg) by mouth Daily as needed (reflux)., Disp: 90 capsule, Rfl: 1 Reef Point SystemsTouch Ultra test strip, , Disp: , Rfl: [...] W/ FUSION 02/2024 Dr. Sutherland, C3-5 , [place] COLONOSCOPY 02/26 (more content not included)... [facility] Gastroenterology Visit Repor ton 02-16-2025 Gastroenterology Visit Report [facility] 36on 02-15-2025 36 Spoke to Jelena archuleta nd gave the verbal ok on order for home visitation and other recommendations and she verbalized understanding. [facility] 36 S: RN with [facility] nurse regarding cough B: Onset of symptoms/concern [...] at 2:30pm with Dr. Jennings. RN with [facility] requesting a verbal order to continue seeing patient at least one more day since patient has low grade fever. Spoke with Dahiana states she will get order from Dr. Jennings and call RN back. Jelena with [facility] can be reached at [phone] Reason for Disposition ? [1] Known COPD or other severe lung disease (i.e., bronchiectasis, cystic fibrosis, lung surgery) AND [2] symptoms getting worse (i.e., increased sputum purulence or amount, increased breathing difficulty Protocols used: Cough - Acute Wpmvzvfzet-BXKCK-OX Normal [facility] CBC W/Diff, Automatedon -0 PATH REV N/A [facility] Comment on above: Result Comment: AMENDED REPORT 02/12/251821 PATH REV previously reported as: March Performed By: #### L 501.5200, L500.2500, L100.0100 ####[facility] [address] [place], [address] PATH REV N/A [facility] Comment on above: Result Comment: AMENDED REPORT 02/12/251817 PATH REV previously reported as: March Performed By: #### L 501.5200, L100.0100, L500.2500 ####[facility] [address] [place], [address] Blood polychromasia detectio n by light microscopyOrdered By: Angela Rodriguez on 02-01-2025 Polychromasia LM Ql (Bld) 1+ [facility] CBC W/Diff, Automatedon 01-08 Anisocytosis Ql (Bld) 1+ Normal [facility] Comment on above: Performed By: #### L 100.0100, L500.4050, L501.2300 ####[facility] [address] [place], [address] OVALOCYTE 1+ [facility] Comment on above: Performed By: #### L 100.0100, L500.4050, L501.2300 ####[facility] [address] [place], [address] POLYCHROMASIA 1+ [facility] Comment on above: Performed By: #### L 100.0100, L500.4050, L501.2300 ####[facility] [address] [place], [address] Absolute Neut Normal 2.0-7.7 [facility] Comment on above: Result Comment: CMP CBCD-DUPLICATE ORDERS FROM PT TX PLAN Performed By: #### L 100.0100, L501.5200, L501.9520, L506.0400 ####[facility] [address] [place], [address] HCT Normal 40-54 [facility] Comment on above: Result Comment: CMP CBCD-DUPLICATE ORDERS FROM PT TX PLAN Performed By: #### L 100.0100, L501.5200, L501.9520, L506.0400 ####[facility] [address] [place], [address] HGB Normal 13.0-16.5 [facility] Comment on above: Result Comment: CMP CBCD-DUPLICATE ORDERS FROM PT TX PLAN Performed By: #### L 100.0100, L501.5200, L501.9520, L506.0400 ####[facility] [address] [place], [address] MCH Normal 27.0-32.0 [facility] Comment on above: Result Comment: CMP CBCD-DUPLICATE ORDERS FROM PT TX PLAN Performed By: #### L 100.0100, L501.5200, L501.9520, L506.0400 ####[facility] [address] [place], [address] MCHC Normal 32-36 [facility] Comment on above: Result Comment: CMP CBCD-DUPLICATE ORDERS FROM PT TX PLAN Performed By: #### L 100.0100, L501.5200, L501.9520, L506.0400 ####[facility] [address] [place], [address] MCV Normal 80-94 [facility] Comment on above: Result Comment: CMP CBCD-DUPLICATE ORDERS FROM PT TX PLAN Performed By: #### L 100.0100, L501.5200, L501.9520, L506.0400 ####[facility] [address] [place], [address] NEUT% Normal 47-70 [facility] Comment on above: Result Comment: CMP CBCD-DUPLICATE ORDERS FROM PT TX PLAN Performed By: #### L 100.0100, L501.5200, L501.9520, L506.0400 ####[facility] [address] [place], [address] PLT Normal 150-450 [facility] Comment on above: Result Comment: CMP CBCD-DUPLICATE ORDERS FROM PT TX PLAN Performed By: #### L 100.0100, L501.5200, L501.9520, L506.0400 ####[facility] [address] [place], [address] RBC Normal 4.6-6.2 [facility] Comment on above: Result Comment: CMP CBCD-DUPLICATE ORDERS FROM PT TX PLAN Performed By: #### L 100.0100, L501.5200, L501.9520, L506.0400 ####[facility] [address] [place], [address] RDW CV Normal 11.6-14.6 [facility] Comment on above: Result Comment: CMP CBCD-DUPLICATE ORDERS FROM PT TX PLAN Performed By: #### L 100.0100, L501.5200, L501.9520, L506.0400 ####[facility] [address] [place], [address] RDW SD Normal 35.1-43.9 [facility] Comment on above: Result Comment: CMP CBCD-DUPLICATE ORDERS FROM PT TX PLAN Performed By: #### L 100.0100, L501.5200, L501.9520, L506.0400 ####[facility] [address] [place], [address] WBC Normal 4.4-11.0 [facility] Comment on above: Result Comment: CMP CBCD-DUPLICATE ORDERS FROM PT TX PLAN Performed By: #### L 100.0100, L501.5200, L501.9520, L506.0400 ####[facility] [address] [place], [address] Comprehensive Metabolic Prof ilon 02-01-2025 Albumin [Mass/Vol] 3.5 g/dL Normal 3.4-4.8 [facility] Comment on above: Performed By: #### L 100.0100, L500.4050, L501.2300 ####[facility] [address] [place], [address] Albumin/Globulin [Mass ratio] 1.6 {ratio} Normal 0.9-2.4 [facility] Comment on above: Performed By: #### L 100.0100, L500.4050, L501.2300 ####[facility] [address] [place], [address] ALK PHOS 56 U/L Normal 40-129 [facility] Comment on above: Performed By: #### L 100.0100, L500.4050, L501.2300 ####[facility] [address] [place], [address] ALT [Catalytic activity/Vol] 46 U/L Normal <=46 [facility] Comment on above: Performed By: #### L 100.0100, L500.4050, L501.2300 ####[facility] [address] [place], [address] AST [Catalytic activity/Vol] 26 U/L Normal <=37 [facility] Comment on above: Performed By: #### L 100.0100, L500.4050, L501.2300 ####[facility] [address] [place], [address] Bilirubin [Mass/Vol] 0.44 mg/dL Normal 0.00-1.30 [facility] Comment on above: Performed By: #### L 100.0100, L500.4050, L501.2300 ####[facility] [address] [place], [address] BUN/CRE 17.9 RATIO Normal 10-20 [facility] Comment on above: Performed By: #### L 100.0100, L500.4050, L501.2300 ####[facility] [address] [place], [address] Calcium [Mass/Vol] 8.2 mg/dL Normal 7.6-11.0 [facility] Comment on above: Performed By: #### L 100.0100, L500.4050, L501.2300 ####[facility] [address] [place], [address] Chloride [Moles/Vol] 107 mmol/L Normal 98-108 [facility] Comment on above: Performed By: #### L 100.0100, L500.4050, L501.2300 ####[facility] [address] [place], [address] CO2 [Moles/Vol] 19.4 mmol/L Low 21.0-32.0 [facility] Comment on above: Performed By: #### L 100.0100, L500.4050, L501.2300 ####[facility] [address] [place], [address] Creatinine [Mass/Vol] 0.78 mg/dL Normal 0.70-1.20 [facility] Comment on above: Performed By: #### L 100.0100, L500.4050, L501.2300 ####[facility] [address] [place], [address] ECRCL 83.11 ml/min Normal 50-250 [facility] Comment on above: Performed By: #### L 100.0100, L500.4050, L501.2300 ####[facility] [address] [place], [address] GAP 10 Normal 5-15 [facility] Comment on above: Performed By: #### L 100.0100, L500.4050, L501.2300 ####[facility] [address] [place], [address] GFR/1.73 sq M.predicted among non-blacks MDRD (S/P/Bld) [Vol rate/Area] 96 mL/min/{1.73_m2} Normal >60 [facility] Comment on above: Result Comment: mL/m in/1.73m2 CKD-EPI Creatinine Equation (2020) Performed By: #### L 100.0100, L500.4050, L501.2300 ####[facility] [address] [place], [address] Globulin (S) [Mass/Vol] 2.2 g/dL Normal 2.2-4.2 [facility] Comment on above: Performed By: #### L 100.0100, L500.4050, L501.2300 ####[facility] [address] [place], [address] Glucose [Mass/Vol] 101 mg/dL High 70-99 [facility] Comment on above: Performed By: #### L 100.0100, L500.4050, L501.2300 ####[facility] [address] [place], [address] Potassium [Moles/Vol] 3.7 mmol/L Normal 3.3-5.1 [facility] Comment on above: Performed By: #### L 100.0100, L500.4050, L501.2300 ####[facility] [address] [place], [address] Sodium [Moles/Vol] 137 mmol/L Normal 133-145 [facility] Comment on above: Performed By: #### L 100.0100, L500.4050, L501.2300 ####[facility] [address] [place], [address] T PROT 5.6 g/dL Low 5.9-8.4 [facility] Comment on above: Performed By: #### L 100.0100, L500.4050, L501.2300 ####[facility] [address] [place], [address] Urea nitrogen [Mass/Vol] 14 mg/dL Normal 4-19 [facility] Comment on above: Performed By: #### L 100.0100, L500.4050, L501.2300 ####[facility] [address] [place], [address] Magnesiumon 02-01-2025 Magnesium [Mass/Vol] 1.7 mg/dL Normal 1.5-2.2 [facility] Comment on above: Order Comment: CMP C BCD-DUPLICATE ORDERS FROM PT TX PLAN Performed By: #### L 100.0100, L501.5200, L501.9520, L506.0400 ####[facility] [address] [place], [address] No Panel InformationOrdered By: Angela Rodriguez on 02-01-2025 1+ [facility] Oncology Visit Reporton 01-08 Oncology Visit Report Normal [facility] Ovalocyte detectionOrdered B y: Angela Rodriguez on 02-01-2025 Ovalocytes LM Ql (Bld) 1+ [facility] Phosphoruson 02-01-2025 Phosphate [Mass/Vol] 2.8 mg/dL Normal 2.7-4.5 [facility] Comment on above: Performed By: #### L 100.0100, L500.4050, L501.2300 ####[facility] [address] [place], [address] T4 Free Directon 02-01-2025 T4 FREE DIRECT 1.60 ng/dL High 0.76-1.46 [facility] Comment on above: Order Comment: CMP C BCD-DUPLICATE ORDERS FROM PT TX PLAN Performed By: #### L 100.0100, L501.5200, L501.9520, L506.0400 ####[facility] [address] [place], [address] T4 freeOrdered By: Angela goff on 02-01-2025 Free T4 [Mass/Vol] 1.60 ng/dL High 0.76-1.46 [facility] TSH DL <= 0.005 mIU/L QnOrde red By: Angela Rodriguez on 02-01-2025 TSH Qn 1.950 uIU/mL 0.300-4.200 [facility] Thyroid Stim Hormone (TSH)on 02-01-2025 TSH 1.950 uIU/mL Normal 0.300-4.200 [facility] Comment on above: Order Comment: CMP C BCD-DUPLICATE ORDERS FROM PT TX PLAN Performed By: #### L 100.0100, L501.5200, L501.9520, L506.0400 ####[facility] [address] [place], [address] 36on 01-23-2025 36 Left fabiola a detailed message and to call the office if any questions. Normal [facility] 36 Name of caller: Fabiola Contact phone number: [phone] Relationship to Patient: [facility] PT Provider: Dr. Jennings Practice: [facility] FP Chief Complaint/Reason for Call: Caller states today 01.23.2025, was patients first appointment. Will continue PT 2 x a week for 3 weeks for functional mobility training. FYI, thank you. Best time of day caller can be reached: Any Patient advised that office/PCP has 24-48 business hours to return their call: Yes [address] 01-20-[address] [facility] 36 S: Patient's nanci guadalupe with [facility] nurse regarding greenish-love coating on tongue. B: Onset of symptoms/concern began 2-3 days ago. A: Patient has a greenish-love pimple-like coating on his tongue that is causing pain. Patient can barely eat. Patient was discharged from [facility] 2 days ago, admitted with flu [...] can be wiped off Protocols used: Mouth [id number] [address] 01-19-2025 36 Spoke with jelena and all was addressed. [place] [address] Name of caller: Idris craig Contact phone number: [phone] Relationship to Patient: [facility] care Provider: Practice: [facility] Chief Complaint/Reason for Call: Jelena calling from [facility] and states they admitted for home care [...] business hours to return their call: no [place] [address] Dahiana was left a detailed message and to call the office if any questions. [address] 01-18-2025 36 Name of caller: Jose lieberman Contact phone number: [phone] Relationship to Patient: [facility] home care Provider: Dr Jennings Practice: [facility] Chief Complaint/Reason for Call: Home care is asking if Dr Jennings will follow patient for at home detention, pt, ot. Please call verbal orders to Dahiana Kiser time of day caller can be reached: AM Patient advised that office/PCP has 24-48 business hours to return their call: Yes Normal [facility] SHS Culture, Blood (WB)on 2024 CUB Blood cultures x2, f rom two different sites No growth in 5 days. Normal [facility] Comment on above: Performed By: #### M 200.1000 ####[facility] [address] [place], [place], [address] Discharge Instructionon 01-07 Discharge Instruction Normal [facility] Magnesiumon 01-18-2025 Magnesium [Mass/Vol] 2.0 mg/dL Normal 1.5-2.2 [facility] Comment on above: Performed By: #### L 501.2300, L501.5200 ####[facility] [address] [place], [place], [address] Magnesium measurement (mass/ volume)Ordered By: Antwan Pitts on 01-18-2025 Magnesium (Unsp spec) [Mass/Vol] 2.0 mg/dL 1.5-2.2 [facility] Phosphoruson 01-18-2025 Phosphate [Mass/Vol] 2.0 mg/dL Low 2.7-4.5 [facility] Comment on above: Performed By: #### L 501.2300, L501.5200 ####[facility] [address] [place], [place], [address] Absolute lymphocyte countOrd ered By: Antwan Pitts on 01-17-2025 Lymphocytes Auto (Unsp spec) [#/Vol] 0.31 10*3/uL Low 0.83-4.51 [facility] Anion gap in Serum or Plasma Ordered By: Antwan Pitts on 01-17-2025 Anion gap [Moles/Vol] 16 mmol/L High 5-15 [facility] BUN/creatinine ratioOrdered By: Antwan Pitts on 01-17-2025 Urea nitrogen/Creatinine [Mass ratio] 11.3 mg/mg 08-28 [facility] Basic Metabolic Profile (BMP )on 01-17-2025 BUN/CRE 11.3 RATIO Normal 08-28 [facility] Comment on above: Performed By: #### L 501.5200, L100.0100, L500.2500 ####[facility] [address] [place], [address] Calcium [Mass/Vol] 7.1 mg/dL Low 7.6-11.0 [facility] Comment on above: Performed By: #### L 501.5200, L100.0100, L500.2500 ####[facility] [address] [place], [address] Chloride [Moles/Vol] 108 mmol/L Normal 98-108 [facility] Comment on above: Performed By: #### L 501.5200, L100.0100, L500.2500 ####[facility] [address] [place], [address] CO2 [Moles/Vol] 18.8 mmol/L Low 21.0-32.0 [facility] Comment on above: Performed By: #### L 501.5200, L100.0100, L500.2500 ####[facility] [address] [place], [address] Creatinine [Mass/Vol] 0.90 mg/dL Normal 0.70-1.20 [facility] Comment on above: Performed By: #### L 501.5200, L100.0100, L500.2500 ####[facility] [address] [place], [address] ECRCL 74.64 ml/min Normal 50-250 [facility] Comment on above: Performed By: #### L 501.5200, L100.0100, L500.2500 ####[facility] [address] [place], [address] GAP 16 High 5-15 [facility] Comment on above: Performed By: #### L 501.5200, L100.0100, L500.2500 ####[facility] [address] [place], [address] GFR/1.73 sq M.predicted among non-blacks MDRD (S/P/Bld) [Vol rate/Area] 91 mL/min/{1.73_m2} Normal >60 [facility] Comment on above: Result Comment: mL/m in/1.73m2 CKD-EPI Creatinine Equation (2020) Performed By: #### L 501.5200, L100.0100, L500.2500 ####[facility] [address] [place], [address] Glucose [Mass/Vol] 248 mg/dL High 70-99 [facility] Comment on above: Performed By: #### L 501.5200, L100.0100, L500.2500 ####[facility] [address] [place], [address] Potassium [Moles/Vol] 3.5 mmol/L Normal 3.3-5.1 [facility] Comment on above: Performed By: #### L 501.5200, L100.0100, L500.2500 ####[facility] [address] [place], [address] Sodium [Moles/Vol] 143 mmol/L Normal 133-145 [facility] Comment on above: Performed By: #### L 501.5200, L100.0100, L500.2500 ####[facility] [address] [place], [address] Urea nitrogen [Mass/Vol] 10 mg/dL Normal 4-19 [facility] Comment on above: Performed By: #### L 501.5200, L100.0100, L500.2500 ####[facility] [address] [place], [address] Blood band neutrophil count as percentage of total leukocytesOrdered By: Antwan Pitts on 01-17-2025 Band form neutrophils/100 WBC (Bld) 5 % 0-5 [facility] Blood lymphocytes/100 leukoc ytesOrdered By: Antwan Pitts on 01-17-2025 Lymphocytes/100 WBC (Bld) 3 % Low 19-41 [facility] Blood metamyelocytes/100 meera kocytesOrdered By: Antwan Pitts on 01-17-2025 Metamyelocytes/100 WBC (Bld) 4 % High 0-1 [facility] Blood monocytes/100 leukocyt esOrdered By: Antwan Pitts on 01-17-2025 Monocytes/100 WBC (Bld) 2 % 0-10 [facility] Blood promyelocytes/100 leuk ocytesOrdered By: Antwan Pitts on 01-17-2025 Promyelocytes/100 WBC (Bld) 1 % High 0-0 [facility] Blood segmented neutrophils/ 100 leukocytesOrdered By: Antwan Pitts on 01-17-2025 Segmented neutrophils/100 WBC (Bld) 82 % High 47-70 [facility] Carbon dioxide, total [Moles /volume] in Central venous bloodOrdered By: Antwan Pitts on 01-17-2025 CO2 [Moles/Vol] 18.8 mmol/L Low 21.0-32.0 [facility] Chloride assayOrdered By: Mikal Pitts on 01-17-2025 Chloride [Moles/Vol] 108 mmol/L 98-108 [facility] Erythrocyte distribution wid th ratioOrdered By: Antwan Pitts on 01-17-2025 Erythrocyte distribution width (RBC) [Ratio] 19.8 % High 11.6-14.6 [facility] Erythrocyte distribution wid th standard deviationOrdered By: Antwan Pitts on 01-17-2025 Erythrocyte distribution width (RBC) [Ratio] 49.1 fl High 35.1-43.9 [facility] Flex Sigmoidoscopy Reporton 01-17-2025 Flex Sigmoidoscopy Report Normal [facility] Glomerular filtration rate ( GFR) estimation/1.73 sq m using serum, plasma, or whole bOrdered By: Antwan Pitts on 01-17-2025 GFR/1.73 sq M.predicted among non-blacks MDRD (S/P/Bld) [Vol rate/Area] 91 mL/min/{1.73_m2} >60 [facility] Hematocrit Auto (Bld) [Volum e fraction]Ordered By: Antwan Pitts on 01-17-2025 Hematocrit (Bld) [Volume fraction] 37.2 % Low 40-54 [facility] Hemoglobin measurementOrdere d By: Antwan Pitts on 01-17-2025 Hemoglobin (Bld) [Mass/Vol] 12.2 g/dL Low 13.0-16.5 [facility] MCV (mean corpuscular volume ) determinationOrdered By: Antwan Pitts on 01-17-2025 MCV (RBC) [Entitic vol] 71.1 fL Low 80-94 [facility] MR/POSTOP.ANEon 01-17-2025 MR/POSTOP.ANE Normal [facility] MR/[id number] 01-17-2025 MR/POSTOPAN2 Normal [facility] Magnesiumon 01-17-2025 Magnesium [Mass/Vol] 1.8 mg/dL Normal 1.5-2.2 [facility] Comment on above: Performed By: #### L 501.5200, L100.0100, L500.2500 ####[facility] [address] [place], [place], [id number] Mean corpuscular hemoglobin (MCH) determinationOrdered By: Antwan Pitts on 01-17-2025 MCH (RBC) [Entitic mass] 23.3 pg Low 27.0-32.0 [facility] Phosphoruson 01-17-2025 Phosphate [Mass/Vol] 3.0 mg/dL Normal 2.7-4.5 [facility] Comment on above: Performed By: #### L 501.2300 ####[facility] [address] [place], [place], [address] Platelet countOrdered By: Mikal Pitts on 01-17-2025 Platelets (Bld) [#/Vol] 134 10*3/uL Low 150-450 [facility] Platelet estimateOrdered By: Antwan Pitts on 01-17-2025 Platelets LM Ql (Bld) SLT DEC ADEQ [facility] Platelet morphologyOrdered B y: Antwan Pitts on 01-17-2025 Platelet morphology finding Nom (Bld) G [facility] Potassium measurement (mass/ volume)Ordered By: Antwan Pitts on 01-17-2025 Potassium (Unsp spec) [Mass/Vol] 3.5 mmol/L 3.3-5.1 [facility] RBC Auto (Bld) [#/Vol]Ordere d By: Antwan Pitts on 01-17-2025 RBC (Bld) [#/Vol] 5.23 10*6/uL 4.6-6.2 [facility] Review by pathologistOrdered By: Antwan Pitts on 01-17-2025 Pathologist review [place] (Unsp spec) [Interp] N/A [facility] Serum creatinine measurement (mass/volume)Ordered By: Antwan Pitts on 01-17-2025 Creatinine [Mass/Vol] 0.90 mg/dL 0.70-1.20 [facility] Serum glucose measurement (m ass/volume)Ordered By: Antwan Pitts on 01-17-2025 Glucose [Mass/Vol] 248 mg/dL High 70-99 [facility] Serum or plasma calcium deangelo urement (mass/volume)Ordered By: Antwan Pitts on 01-17-2025 Calcium [Mass/Vol] 7.1 mg/dL Low 7.6-11.0 [facility] Serum or plasma urea nitroge n measurement (mass/volume)Ordered By: Antwan Pitts on 01-17-2025 Urea nitrogen [Mass/Vol] 10 mg/dL 4-19 [facility] Sodium levelOrdered By: Ajit Pitts on 01-17-2025 Sodium [Moles/Vol] 143 mmol/L 133-145 [facility] Surgery Specimen Level Alina 01-17-2025 Surgery Specimen Level IV Normal [facility] Comment on above: Performed By: #### P SUIV ####[facility] [address] [place], [address] Total cell countOrdered By: Antwan Pitts on 01-17-2025 Cells counted Molgen (Bld/Tiss) [#] 100 MANUAL DIFF [facility] White blood cell (WBC) count Ordered By: Antwan Pitts on 01-17-2025 WBC (Bld) [#/Vol] 10.4 10*3/uL 4.4-11.0 [facility] Basic Metabolic Profile (BMP )on 01-16-2025 BUN/CRE 17.0 RATIO Normal 10-20 [facility] Comment on above: Performed By: #### L 501.5200, L500.2500, L100.0100 ####[facility] [address] [place], [address] Calcium [Mass/Vol] 7.3 mg/dL Low 7.6-11.0 [facility] Comment on above: Performed By: #### L 501.5200, L500.2500, L100.0100 ####[facility] [address] [place], [address] Chloride [Moles/Vol] 112 mmol/L High 98-108 [facility] Comment on above: Performed By: #### L 501.5200, L500.2500, L100.0100 ####[facility] [address] [place], [address] CO2 [Moles/Vol] 18.3 mmol/L Low 21.0-32.0 [facility] Comment on above: Performed By: #### L 501.5200, L500.2500, L100.0100 ####[facility] [address] [place], [address] Creatinine [Mass/Vol] 0.79 mg/dL Normal 0.70-1.20 [facility] Comment on above: Performed By: #### L 501.5200, L500.2500, L100.0100 ####[facility] [address] [place], [address] ECRCL 84.07 ml/min Normal 50-250 [facility] Comment on above: Performed By: #### L 501.5200, L500.2500, L100.0100 ####[facility] [address] [place], [address] GAP 14 Normal 5-15 [facility] Comment on above: Performed By: #### L 501.5200, L500.2500, L100.0100 ####[facility] [address] [place], [address] GFR/1.73 sq M.predicted among non-blacks MDRD (S/P/Bld) [Vol rate/Area] 95 mL/min/{1.73_m2} Normal >60 [facility] Comment on above: Result Comment: mL/m in/1.73m2 CKD-EPI Creatinine Equation (2020) Performed By: #### L 501.5200, L500.2500, L100.0100 ####[facility] [address] [place], [address] Glucose [Mass/Vol] 221 mg/dL High 70-99 [facility] Comment on above: Performed By: #### L 501.5200, L500.2500, L100.0100 ####[facility] [address] [place], [address] Potassium [Moles/Vol] 3.4 mmol/L Normal 3.3-5.1 [facility] Comment on above: Performed By: #### L 501.5200, L500.2500, L100.0100 ####[facility] [address] [place], [address] Sodium [Moles/Vol] 144 mmol/L Normal 133-145 [facility] Comment on above: Performed By: #### L 501.5200, L500.2500, L100.0100 ####[facility] [address] [place], [address] Urea nitrogen [Mass/Vol] 13 mg/dL Normal 4-19 [facility] Comment on above: Performed By: #### L 501.5200, L500.2500, L100.0100 ####[facility] [address] [place], [address] Blood schistocyte detection by light microscopyOrdered By: Antwan Pitts on 01-16-2025 Schistocytes LM Ql (Bld) RARE [facility] Blood vacuolated neutrophils detection by light microscopyOrdered By: Antwan Pitts on 01-16-2025 Neutrophils.vacuolated LM Ql (Bld) 1+ [facility] Brain/Head W/WO Contraston 0 01-16-2025 Brain/Head W/WO Contrast Normal [facility] Magnesiumon 01-16-2025 Magnesium [Mass/Vol] 1.8 mg/dL Normal 1.5-2.2 [facility] Comment on above: Performed By: #### L 501.5200, L500.2500, L100.0100 ####[facility] [address] [place], [address] No Panel InformationOrdered By: Antwan Pitts on 01-16-2025 1+ [facility] Ovalocyte detectionOrdered B y: Antwan Pitts on 01-16-2025 Ovalocytes LM Ql (Bld) 1+ [facility] Phosphoruson 01-16-2025 Phosphate [Mass/Vol] 2.3 mg/dL Low 2.7-4.5 [facility] Comment on above: Performed By: #### L 501.2300 ####[facility] [address] [place], [address] Toxic leukocyte granulation detectionOrdered By: Antwan Pitts on 01-16-2025 Toxic granules LM Ql (Bld) 3+ [facility] Trough vancomycin levelOrder ed By: Antwan Pitts on 01-16-2025 Vancomycin trough [Mass/Vol] 15.3 ug/mL High 5.0-15.0 [facility] Vancomycin, Trough Levelon 0 - VANCO, TROUGH 15.3 ug/mL High 5.0-15.0 [facility] Comment on above: Order Comment: 0400 Result [...] therapy recommended for serious lifethreatening infections include:- Bxriuhzxxs-Mdfmlpzihark-Nbyaaxjpy (Ventilator/Healtcare Associated)-SepsisPLEASE CONTACT PHARMACY SERVICES (#0555) FOR INTERPRETATIONOF RESULTS. Performed By: #### L 501.8820 ####[facility] [address] [place], [place], [id number] Basic Metabolic Profile (BMP )on 01-15-2025 BUN/CRE 19.7 RATIO Normal 10-20 [facility] Comment on above: Performed By: #### L 500.3400, L501.5200, L500.2500, L501.2300, L100.0100 ####[facility] [address] [place], [address] Calcium [Mass/Vol] 7.6 mg/dL Normal 7.6-11.0 [facility] Comment on above: Performed By: #### L 500.3400, L501.5200, L500.2500, L501.2300, L100.0100 ####[facility] [address] [place], [address] Chloride [Moles/Vol] 114 mmol/L High 98-108 [facility] Comment on above: Performed By: #### L 500.3400, L501.5200, L500.2500, L501.2300, L100.0100 ####[facility] [address] [place], [address] CO2 [Moles/Vol] 18.7 mmol/L Low 21.0-32.0 [facility] Comment on above: Performed By: #### L 500.3400, L501.5200, L500.2500, L501.2300, L100.0100 ####[facility] [address] [place], [address] Creatinine [Mass/Vol] 0.95 mg/dL Normal 0.70-1.20 [facility] Comment on above: Performed By: #### L 500.3400, L501.5200, L500.2500, L501.2300, L100.0100 ####[facility] [address] [place], [address] ECRCL 70.47 ml/min Normal 50-250 [facility] Comment on above: Performed By: #### L 500.3400, L501.5200, L500.2500, L501.2300, L100.0100 ####[facility] [address] [place], [address] GAP 13 Normal 5-15 [facility] Comment on above: Performed By: #### L 500.3400, L501.5200, L500.2500, L501.2300, L100.0100 ####[facility] [address] [place], [address] GFR/1.73 sq M.predicted among non-blacks MDRD (S/P/Bld) [Vol rate/Area] 86 mL/min/{1.73_m2} Normal >60 [facility] Comment on above: Result Comment: mL/m in/1.73m2 CKD-EPI Creatinine Equation (2020) Performed By: #### L 500.3400, L501.5200, L500.2500, L501.2300, L100.0100 ####[facility] [address] [place], [address] Glucose [Mass/Vol] 238 mg/dL High 70-99 [facility] Comment on above: Performed By: #### L 500.3400, L501.5200, L500.2500, L501.2300, L100.0100 ####[facility] [address] [place], [address] Potassium [Moles/Vol] 2.8 mmol/L Low 3.3-5.1 [facility] Comment on above: Performed By: #### L 500.3400, L501.5200, L500.2500, L501.2300, L100.0100 ####[facility] [address] [place], [address] Sodium [Moles/Vol] 146 mmol/L High 133-145 [facility] Comment on above: Performed By: #### L 500.3400, L501.5200, L500.2500, L501.2300, L100.0100 ####[facility] [address] [place], [address] Urea nitrogen [Mass/Vol] 19 mg/dL Normal 4-19 [facility] Comment on above: Performed By: #### L 500.3400, L501.5200, L500.2500, L501.2300, L100.0100 ####[facility] [address] [place], [address] Bilirubin directOrdered By: Antwan Pitts on 01-15-2025 Bilirubin.direct [Mass/Vol] 0.27 mg/dL Normal 0.00-0.30 [facility] Comment on above: Performed By: #### L 500.3400, L501.5200, L500.2500, L501.2300, L100.0100 ####[facility] [address] [place], [address] Bilirubin, totalOrdered By: Antwan Pitts on 01-15-2025 Bilirubin [Mass/Vol] 0.38 mg/dL Normal 0.00-1.30 [facility] Comment on above: Performed By: #### L 500.3400, L501.5200, L500.2500, L501.2300, L100.0100 ####[facility] [address] [place], [address] Erythrocyte morphology asses smentOrdered By: Antwan Pitts on 01-15-2025 RBC morphology finding Nom (Bld) NORM C+C NORMAL NORM C&C [facility] Liver Profileon 01-15-2025 ALK PHOS 84 U/L Normal 40-129 [facility] Comment on above: Performed By: #### L 500.3400, L501.5200, L500.2500, L501.2300, L100.0100 ####[facility] [address] [place], [address] AST [Catalytic activity/Vol] 54 U/L High <=37 [facility] Comment on above: Performed By: #### L 500.3400, L501.5200, L500.2500, L501.2300, L100.0100 ####[facility] [address] [place], [address] T PROT 5.0 g/dL Low 5.9-8.4 [facility] Comment on above: Performed By: #### L 500.3400, L501.5200, L500.2500, L501.2300, L100.0100 ####[facility] [address] [place], [address] Magnesiumon 01-15-2025 Magnesium [Mass/Vol] 2.2 mg/dL Normal 1.5-2.2 [facility] Comment on above: Performed By: #### L 500.3400, L501.5200, L500.2500, L501.2300, L100.0100 ####[facility] [address] [place], [address] No Panel InformationOrdered By: Antwan Pitts on 01-15-2025 54 U/L High <38 [facility] Phosphoruson 01-15-2025 Phosphate [Mass/Vol] 1.3 mg/dL Invalid Interpretation Code 2.7-4.5 [facility] Comment on above: Performed By: #### L 500.3400, L501.5200, L500.2500, L501.2300, L100.0100 ####[facility] [address] [place], [address] Respiratory Cultureon 2024 RESPC Normal [facility] Comment on above: Performed By: #### M 100.2400, M100.2000 ####[facility] [address] [place], [address] Serum globulin measurementOr dered By: Antwan Pitts on 01-15-2025 Globulin (S) [Mass/Vol] 2.0 g/dL Low 2.2-4.2 [facility] Comment on above: Performed By: #### L 500.3400, L501.5200, L500.2500, L501.2300, L100.0100 ####[facility] [address] [place], [address] Serum or plasma alanine kong otransferase (ALT) measurementOrdered By: Antwan Pitts on 01-15-2025 ALT [Catalytic activity/Vol] 27 U/L Normal <=46 [facility] Comment on above: Performed By: #### L 500.3400, L501.5200, L500.2500, L501.2300, L100.0100 ####[facility] [address] [place], [address] Serum or plasma albumin deangelo urement (mass/volume)Ordered By: Antwan Pitts on 01-15-2025 Albumin [Mass/Vol] 3.0 g/dL Low 3.4-4.8 [facility] Comment on above: Performed By: #### L 500.3400, L501.5200, L500.2500, L501.2300, L100.0100 ####[facility] [address] [place], [address] Serum or plasma alkaline alie sphatase measurementOrdered By: Antwan Pitts on 01-15-2025 ALP [Catalytic activity/Vol] 84 U/L 40-129 [facility] Total proteinOrdered By: Gigi Pitts on 01-15-2025 Protein [Mass/Vol] 5.0 g/dL Low 5.9-8.4 [facility] Basic Metabolic Profile (BMP )on 01-14-2025 BUN/CRE 21.5 RATIO High 10-20 [facility] Comment on above: Performed By: #### L 500.2500, L100.0100 ####[facility] [address] [place], [address] Calcium [Mass/Vol] 8.0 mg/dL Normal 7.6-11.0 [facility] Comment on above: Performed By: #### L 500.2500, L100.0100 ####[facility] [address] [place], [address] Chloride [Moles/Vol] 112 mmol/L High 98-108 [facility] Comment on above: Performed By: #### L 500.2500, L100.0100 ####[facility] [address] [place], [address] CO2 [Moles/Vol] 15.0 mmol/L Low 21.0-32.0 [facility] Comment on above: Performed By: #### L 500.2500, L100.0100 ####[facility] [address] [place], [address] Creatinine [Mass/Vol] 1.28 mg/dL High 0.70-1.20 [facility] Comment on above: Performed By: #### L 500.2500, L100.0100 ####[facility] [address] [place], [address] ECRCL 53.86 ml/min Normal 50-250 [facility] Comment on above: Performed By: #### L 500.2500, L100.0100 ####[facility] [address] [place], [address] GAP 18 High 5-15 [facility] Comment on above: Performed By: #### L 500.2500, L100.0100 ####[facility] [address] [place], [address] GFR/1.73 sq M.predicted among non-blacks MDRD (S/P/Bld) [Vol rate/Area] 60 mL/min/{1.73_m2} Normal >60 [facility] Comment on above: Result Comment: mL/m in/1.73m2 CKD-EPI Creatinine Equation (2020) Performed By: #### L 500.2500, L100.0100 ####[facility] [address] [place], [address] Glucose [Mass/Vol] 171 mg/dL High 70-99 [facility] Comment on above: Performed By: #### L 500.2500, L100.0100 ####[facility] [address] [place], [address] Potassium [Moles/Vol] 3.4 mmol/L Normal 3.3-5.1 [facility] Comment on above: Performed By: #### L 500.2500, L100.0100 ####[facility] [address] [place], [address] Sodium [Moles/Vol] 145 mmol/L Normal 133-145 [facility] Comment on above: Performed By: #### L 500.2500, L100.0100 ####[facility] [address] [place], [address] Urea nitrogen [Mass/Vol] 28 mg/dL High 4-19 [facility] Comment on above: Performed By: #### L 500.2500, L100.0100 ####[facility] [address] [place], [address] Blood manual differential co mment interpretation (narrative result)Ordered By: Sayra Fuentes on 01-14-2025 Manual differential comment Obinna (Bld) [Interp] SCANNED [facility] CBC W/Diff, Automatedon Absolute Lymph 0.60 X10 3/uL Low 0.83-4.51 [facility] Comment on above: Performed By: #### L 500.2500, L100.0100 ####[facility] [address] [place], [address] Absolute Neut 4.2 X10 3/uL Normal 2.0-7.7 [facility] Comment on above: Performed By: #### L 500.2500, L100.0100 ####[facility] [address] [place], [address] PATH REV May foll Normal [facility] Comment on above: Performed By: #### L 500.2500, L100.0100 ####[facility] [address] [place], [address] SMEAR COMMENT SCANNED Normal [facility] Comment on above: Result Comment: LEFT SHIFT: BANDS PRESENT 2+ Performed By: #### L 500.2500, L100.0100 ####[facility] [address] [place], [address] TOXIC GRAN 2+ Normal [facility] Comment on above: Performed By: #### L 500.2500, L100.0100 ####[facility] [address] [place], [address] BAND 44 High 0-5 [facility] Comment on above: Performed By: #### L 500.2500, L100.0100 ####[facility] [address] [place], [address] Lymphocytes (Bld) [#/Vol] 12 10*3/uL Low 19-41 [facility] Comment on above: Performed By: #### L 500.2500, L100.0100 ####[facility] [address] [place], [address] MONOCYTE 4 Normal 0-10 [facility] Comment on above: Performed By: #### L 500.2500, L100.0100 ####[facility] [address] [place], [address] SEGS 40 Low 47-70 [facility] Comment on above: Performed By: #### L 500.2500, L100.0100 ####[facility] [address] [place], [address] TOTAL CELLS 100 Normal MANUAL DIFF [facility] Comment on above: Performed By: #### L 500.2500, L100.0100 ####[facility] [address] [place], [address] Vancomycin, Trough Levelon 0 3- VANCO, TROUGH 9.3 ug/mL Normal 5.0-15.0 [facility] Comment on above: Order Comment: Comme nts: DRAW 30 MIN PRIOR TO [id number] Result Comment: Tim mmended goal trough ranges [...] therapy recommended for serious lifethreatening infections include:- Xdeilwgqod-Wkziqmeuekdj-Yaqbhkmyc (Ventilator/Healtcare Associated)-SepsisPLEASE CONTACT PHARMACY SERVICES (#4154) FOR INTERPRETATIONOF RESULTS. Performed By: #### L 501.8881 ####[facility] [address] [place], [address] Blood basophils/100 leukocyt esOrdered By: Katlin [place] on 01-13-2025 Basophils/100 WBC (Bld) 1 % 0-1 [facility] Comprehensive Metabolic Prof ilon 01-13-2025 Albumin [Mass/Vol] 2.8 g/dL Low 3.4-4.8 [facility] Comment on above: Performed By: #### L 500.4050, L300.3900, L100.0100 ####[facility] [address] [place], [address] Albumin/Globulin [Mass ratio] 1.2 {ratio} Normal 0.9-2.4 [facility] Comment on above: Performed By: #### L 500.4050, L300.3900, L100.0100 ####[facility] [address] [place], [address] ALK PHOS 62 U/L Normal 40-129 [facility] Comment on above: Performed By: #### L 500.4050, L300.3900, L100.0100 ####[facility] [address] [place], [address] ALT [Catalytic activity/Vol] 22 U/L Normal <=46 [facility] Comment on above: Performed By: #### L 500.4050, L300.3900, L100.0100 ####[facility] [address] [place], [address] AST [Catalytic activity/Vol] 57 U/L High <=37 [facility] Comment on above: Performed By: #### L 500.4050, L300.3900, L100.0100 ####[facility] [address] [place], [address] Bilirubin [Mass/Vol] 0.34 mg/dL Normal 0.00-1.30 [facility] Comment on above: Performed By: #### L 500.4050, L300.3900, L100.0100 ####[facility] [address] [place], [address] BUN/CRE 18.3 RATIO Normal 10-20 [facility] Comment on above: Performed By: #### L 500.4050, L300.3900, L100.0100 ####[facility] [address] [place], [address] Calcium [Mass/Vol] 8.0 mg/dL Normal 7.6-11.0 [facility] Comment on above: Performed By: #### L 500.4050, L300.3900, L100.0100 ####[facility] [address] [place], [address] Chloride [Moles/Vol] 108 mmol/L Normal 98-108 [facility] Comment on above: Performed By: #### L 500.4050, L300.3900, L100.0100 ####[facility] [address] [place], [address] CO2 [Moles/Vol] 11.5 mmol/L Low 21.0-32.0 [facility] Comment on above: Performed By: #### L 500.4050, L300.3900, L100.0100 ####[facility] [address] [place], [address] Creatinine [Mass/Vol] 1.63 mg/dL High 0.70-1.20 [facility] Comment on above: Performed By: #### L 500.4050, L300.3900, L100.0100 ####[facility] [address] [place], [address] ECRCL 42.51 ml/min Low 50-250 [facility] Comment on above: Performed By: #### L 500.4050, L300.3900, L100.0100 ####[facility] [address] [place], [address] GAP 23 High 5-15 [facility] Comment on above: Performed By: #### L 500.4050, L300.3900, L100.0100 ####[facility] [address] [place], [address] GFR/1.73 sq M.predicted among non-blacks MDRD (S/P/Bld) [Vol rate/Area] 45 mL/min/{1.73_m2} Low >60 [facility] Comment on above: Result Comment: mL/m in/1.73m2 CKD-EPI Creatinine Equation (2020) Performed By: #### L 500.4050, L300.3900, L100.0100 ####[facility] [address] [place], [address] Globulin (S) [Mass/Vol] 2.3 g/dL Normal 2.2-4.2 [facility] Comment on above: Performed By: #### L 500.4050, L300.3900, L100.0100 ####[facility] [address] [place], [address] Glucose [Mass/Vol] 139 mg/dL High 70-99 [facility] Comment on above: Performed By: #### L 500.4050, L300.3900, L100.0100 ####[facility] [address] [place], [address] Potassium [Moles/Vol] 3.9 mmol/L Normal 3.3-5.1 [facility] Comment on above: Performed By: #### L 500.4050, L300.3900, L100.0100 ####[facility] [address] [place], [address] Sodium [Moles/Vol] 142 mmol/L Normal 133-145 [facility] Comment on above: Performed By: #### L 500.4050, L300.3900, L100.0100 ####[facility] [address] [place], [address] T PROT 5.1 g/dL Low 5.9-8.4 [facility] Comment on above: Performed By: #### L 500.4050, L300.3900, L100.0100 ####[facility] [address] [place], [address] Urea nitrogen [Mass/Vol] 30 mg/dL High 4-19 [facility] Comment on above: Performed By: #### L 500.4050, L300.3900, L100.0100 ####[facility] [address] [place], [address] Crenated erythrocyte detecti on by light microscopyOrdered By: Katlin [place] on 01-13-2025 Kezia cells LM Ql (Bld) 2+ [facility] Prothrombin Time w/INRon INR Coag (PPP) [Relative time] 1.6 {INR} Normal [facility] Comment on above: Performed By: #### L 500.4050, L300.3900, L100.0100 ####[facility] [address] [place], [address] PT Coag (PPP) [Time] 19.7 s High 11.7-14.9 [facility] Comment on above: Performed By: #### L 500.4050, L300.3900, L100.0100 ####[facility] [address] [place], [address] Prothrombin timeOrdered By: Katlin Dwyer on 01-13-2025 PT Coag (PPP) [Time] 19.7 s High 11.7-14.9 [facility] Serum or plasma albumin/glob ulin mass ratioOrdered By: Katlin Dwyer on 01-13-2025 Albumin/Globulin [Mass ratio] 1.2 {ratio} 0.9-2.4 [facility] Assessment of wrist artery p atency prior to arterial punctureOrdered By: Katlin Dwyer on 01-12-2025 Arterial patency Wrist artery --pre arterial puncture Positive [facility] Automated lymphocyte count a s percentage of total leukocytesOrdered By: Katlin Dwyer on 01-12-2025 Lymphocytes/100 WBC Auto (Unsp spec) 11.1 % Low 19-41 [facility] Basophil percentageOrdered B y: Katlin Dwyer on 01-12-2025 Basophils/100 WBC (Bld) 1.1 % High 0-1 [facility] Blood Gases by CPSon 025 ADAL TEST Positive Normal [facility] Comment on above: Performed By: #### L 9000.0800 ####[facility] [address] [place], [address] Base excess Calc (Bld) [Moles/Vol] -10 mmol/L Low -2 to +2 [facility] Comment on above: Performed By: #### L 9000.0800 ####[facility] [address] [place], [address] Blood Gas Type ART Normal [facility] Comment on above: Performed By: #### L 9000.0800 ####[facility] [address] [place], [address] CO2 [Moles/Vol] 16 mmol/L Normal [facility] Comment on above: Performed By: #### L 9000.0800 ####[facility] [address] [place], [address] FI02 12.0 Normal [facility] Comment on above: Performed By: #### L 9000.0800 ####[facility] [address] [place], [address] HCO3 (Bld) [Moles/Vol] 15.3 mmol/L Low 22-26 [facility] Comment on above: Performed By: #### L 9000.0800 ####[facility] [address] [place], [address] Mode Not entered Normal [facility] Comment on above: Performed By: #### L 8999.0800 ####[facility] [address] [place], [address] O2 Delivery Dev Cannula Normal [facility] Comment on above: Performed By: #### L 0.0800 ####[facility] [address] [place], [address] pCO2 25.0 mmHg Low 35-45 [facility] Comment on above: Performed By: #### L 0.0800 ####[facility] [address] [place], [address] pH (Bld) 7.40 [pH] Normal 7.35-7.45 [facility] Comment on above: Performed By: #### L 9000.0800 ####[facility] [address] [place], [address] PO2 85 mmHG Normal 75-100 [facility] Comment on above: Performed By: #### L 0.0800 ####[facility] [address] [place], [address] RR 38 Normal [facility] Comment on above: Performed By: #### L 0.0800 ####[facility] [address] [place], [address] SITE R Radial Normal [facility] Comment on above: Performed By: #### L 0.0800 ####[facility] [address] [place], [address] SO2 97 Normal 95-99 [facility] Comment on above: Performed By: #### L 9000.0800 ####[facility] [address] [place], [address] Blood base excess determinat ionOrdered By: Katlin [place]yer on 01-12-2025 Base excess Calc (BldV) [Moles/Vol] -10 mmol/L Low -2-2 [facility] Blood bicarbonate measuremen tOrdered By: Katlin Dwyer on 01-12-2025 HCO3 (Bld) [Moles/Vol] 15.3 mmol/L Low 22-26 [facility] Blood cultureOrdered By: Wiliam Dwyer on 01-12-2025 Bacteria identified Cx Nom (Bld) No growth in 5 days. [facility] CBC W/Diff, Automatedon 03- Absolute Lymph 0.92 X10 3/uL Normal 0.83-4.51 [facility] Comment on above: Performed By: #### L 500.4050, L100.0100 ####[facility] [address] [place], [address] Absolute Neut 6.0 X10 3/uL Normal 2.0-7.7 [facility] Comment on above: Performed By: #### L 500.4050, L100.0100 ####[facility] [address] [place], [address] Basophils/100 WBC (Bld) 1.1 % High 0-1 [facility] Comment on above: Performed By: #### L 500.4050, L100.0100 ####[facility] [address] [place], [address] Eosinophils/100 WBC (Bld) 0.4 % Normal 0-5 [facility] Comment on above: Performed By: #### L 500.4050, L100.0100 ####[facility] [address] [place], [address] Erythrocyte distribution width (RBC) [Ratio] 19.8 % High 11.6-14.6 [facility] Comment on above: Performed By: #### L 500.4050, L100.0100 ####[facility] [address] [place], [address] Hematocrit (Bld) [Volume fraction] 37.2 % Low 40-54 [facility] Comment on above: Performed By: #### L 500.4050, L100.0100 ####[facility] [address] [place], [address] Hemoglobin (Bld) [Mass/Vol] 11.7 g/dL Low 13.0-16.5 [facility] Comment on above: Performed By: #### L 500.4050, L100.0100 ####[facility] [address] [place], [address] IG% 2.800 High 0.0-0.9 [facility] Comment on above: Result Comment: IG% - Immature Granulocytes (promyelocytes, myelocytes andmetamyelocytes) > 1% indicates that a LEFT SHIFT is Present. Performed By: #### L 500.4050, L100.0100 ####[facility] [address] [place], [address] Lymphocytes/100 WBC (Bld) 11.1 % Low 19-41 [facility] Comment on above: Performed By: #### L 500.4050, L100.0100 ####[facility] [address] [place], [address] MCH (RBC) [Entitic mass] 23.0 pg Low 27.0-32.0 [facility] Comment on above: Performed By: #### L 500.4050, L100.0100 ####[facility] [address] [place], [address] MCHC (RBC) [Mass/Vol] 31.5 g/dL Low 32-36 [facility] Comment on above: Performed By: #### L 500.4050, L100.0100 ####[facility] [address] [place], [address] MCV (RBC) [Entitic vol] 73.2 fL Low 80-94 [facility] Comment on above: Performed By: #### L 500.4050, L100.0100 ####[facility] [address] [place], [address] Monocytes/100 WBC (Bld) 12.0 % High 0-10 [facility] Comment on above: Performed By: #### L 500.4050, L100.0100 ####[facility] [address] [place], [address] Neutrophils/100 WBC (Bld) 72.6 % High 47-70 [facility] Comment on above: Performed By: #### L 500.4050, L100.0100 ####[facility] [address] [place], [address] Nucleated RBC (Bld) [#/Vol] 0 10*3/uL Normal 0-5 [facility] Comment on above: Performed By: #### L 500.4050, L100.0100 ####[facility] [address] [place], [address] Platelet mean volume (Bld) [Entitic vol] 9.8 fL Normal 6.2-12.0 [facility] Comment on above: Performed By: #### L 500.4050, L100.0100 ####[facility] [address] [place], [address] Platelets (Bld) [#/Vol] 171 10*3/uL Normal 150-450 [facility] Comment on above: Performed By: #### L 500.4050, L100.0100 ####[facility] [address] [place], [address] RBC (Bld) [#/Vol] 5.08 10*6/uL Normal 4.6-6.2 [facility] Comment on above: Performed By: #### L 500.4050, L100.0100 ####[facility] [address] [place], [address] RDW SD 51.6 fl High 35.1-43.9 [facility] Comment on above: Performed By: #### L 500.4050, L100.0100 ####[facility] [address] [place], [address] WBC (Bld) [#/Vol] 8.3 10*3/uL Normal 4.4-11.0 [facility] Comment on above: Performed By: #### L 500.4050, L100.0100 ####[facility] [address] [place], [address] Comprehensive Metabolic Prof ilon 01-12-2025 Albumin [Mass/Vol] 2.6 g/dL Low 3.4-4.8 [facility] Comment on above: Performed By: #### L 500.4050, L100.0100 ####[facility] [address] [place], [address] Albumin/Globulin [Mass ratio] 1.3 {ratio} Normal 0.9-2.4 [facility] Comment on above: Performed By: #### L 500.4050, L100.0100 ####[facility] [address] [place], [address] ALK PHOS 57 U/L Normal 40-129 [facility] Comment on above: Performed By: #### L 500.4050, L100.0100 ####[facility] [address] [place], [address] ALT [Catalytic activity/Vol] 17 U/L Normal <=46 [facility] Comment on above: Performed By: #### L 500.4050, L100.0100 ####[facility] [address] [place], [address] AST [Catalytic activity/Vol] 56 U/L High <=37 [facility] Comment on above: Performed By: #### L 500.4050, L100.0100 ####[facility] [address] [place], [address] Bilirubin [Mass/Vol] 0.40 mg/dL Normal 0.00-1.30 [facility] Comment on above: Performed By: #### L 500.4050, L100.0100 ####[facility] [address] [place], [address] BUN/CRE 11.6 RATIO Normal 10-20 [facility] Comment on above: Performed By: #### L 500.4050, L100.0100 ####[facility] [address] [place], [address] Calcium [Mass/Vol] 7.9 mg/dL Normal 7.6-11.0 [facility] Comment on above: Performed By: #### L 500.4050, L100.0100 ####[facility] [address] [place], [address] Chloride [Moles/Vol] 106 mmol/L Normal 98-108 [facility] Comment on above: Performed By: #### L 500.4050, L100.0100 ####[facility] [address] [place], [address] CO2 [Moles/Vol] 15.4 mmol/L Low 21.0-32.0 [facility] Comment on above: Performed By: #### L 500.4050, L100.0100 ####[facility] [address] [place], [address] Creatinine [Mass/Vol] 1.97 mg/dL High 0.70-1.20 [facility] Comment on above: Performed By: #### L 500.4050, L100.0100 ####[facility] [address] [place], [address] ECRCL 34.96 ml/min Low 50-250 [facility] Comment on above: Performed By: #### L 500.4050, L100.0100 ####[facility] [address] [place], [address] GAP 16 High 5-15 [facility] Comment on above: Performed By: #### L 500.4050, L100.0100 ####[facility] [address] [place], [address] GFR/1.73 sq M.predicted among non-blacks MDRD (S/P/Bld) [Vol rate/Area] 36 mL/min/{1.73_m2} Low >60 [facility] Comment on above: Result Comment: mL/m in/1.73m2 CKD-EPI Creatinine Equation (2020) Performed By: #### L 500.4050, L100.0100 ####[facility] [address] [place], [address] Globulin (S) [Mass/Vol] 1.9 g/dL Low 2.2-4.2 [facility] Comment on above: Performed By: #### L 500.4050, L100.0100 ####[facility] [address] [place], [address] Glucose [Mass/Vol] 78 mg/dL Normal 70-99 [facility] Comment on above: Performed By: #### L 500.4050, L100.0100 ####[facility] [address] [place], [address] Potassium [Moles/Vol] 3.5 mmol/L Normal 3.3-5.1 [facility] Comment on above: Performed By: #### L 500.4050, L100.0100 ####[facility] [address] [place], [address] Sodium [Moles/Vol] 137 mmol/L Normal 133-145 [facility] Comment on above: Performed By: #### L 500.4050, L100.0100 ####[facility] [address] [place], [address] T PROT 4.5 g/dL Low 5.9-8.4 [facility] Comment on above: Performed By: #### L 500.4050, L100.0100 ####[facility] [address] [place], [address] Urea nitrogen [Mass/Vol] 23 mg/dL High 4-19 [facility] Comment on above: Performed By: #### L 500.4050, L100.0100 ####[facility] [address] [place], [address] Consultation - Intensiviston 01-12-2025 Consultation - Cardroom Plastic Card Grader Normal [facility] Eosinophil percentageOrdered By: Katlin [place] on 01-12-2025 Eosinophils/100 WBC (Bld) 0.4 % 0-5 [facility] Gram Stainon 01-12-2025 List Antibiotics Las t 48 Hours? - Acceptable Specimen? Yes (<25 Epithelial cells per/lpf) Gram Stain Rare Gram positive cocci 1+ White Blood Cells Rare Epithelial cells Normal [facility] Comment on above: Performed By: #### M 100.2400, M100.2000 ####[facility] [address] [place], [address] Gram stainOrdered By: Andrew Ribera on 01-12-2025 Microscopic observation Gram stain Nom (Unsp spec) [facility] Immature granulocytes/100 WB C Auto (Bld)Ordered By: Katlin [place] on 01-12-2025 Immature granulocytes/100 WBC (Bld) 2.800 % High 0.0-0.9 [facility] Measurement, pHOrdered By: Piper [place] on 01-12-2025 pH (Unsp spec) 7.40 [pH] 7.35-7.45 [facility] Microbial respiratory cultur eOrdered By: Laura Ribera on 01-12-2025 Microorganism identified Cx Nom (Unsp spec) Escherichia coli Abnormal [facility] Microorganism identified Cx Nom (Unsp spec) Enterobacter cloacae complex Abnormal [facility] Monocyte percentageOrdered B y: Katlin [place] on 01-12-2025 Monocytes/100 WBC (Bld) 12.0 % High 0-10 [facility] No Panel InformationOrdered By: Katlin [place] on 01-12-2025 ART [facility] R Radial [facility] Not entered [facility] Cannula [facility] 38 [facility] Total carbon dioxide measure mentOrdered By: Katlin [place] on 01-12-2025 CO2 [Moles/Vol] 16 mmol/L [facility] AST(SGOT)on 01-11-2025 AST [Catalytic activity/Vol] 26 U/L Normal <=37 [facility] Comment on above: Performed By: #### L 501.4405, L503.7505, L501.1800, L501.4600, L001.0705, L501.4100, L501.4305 ####[facility] [address] [place], [address] Alanine Aminotransferas (SGP T)on 01-11-2025 ALT [Catalytic activity/Vol] 10 U/L Normal <=46 [facility] Comment on above: Performed By: #### L 501.4405, L503.7505, L501.1800, L501.4600, L001.0705, L501.4100, L501.4305 ####[facility] [address] [place], [address] Albumin, Serumon 01-11-2025 Albumin [Mass/Vol] 2.6 g/dL Low 3.4-4.8 [facility] Comment on above: Performed By: #### L 501.4405, L503.7505, L501.1800, L501.4600, L001.0705, L501.4100, L501.4305 ####[facility] [address] [place], [address] Alkaline Phosphataseon 01-11 ALK PHOS 46 U/L Normal 40-129 [facility] Comment on above: Performed By: #### L 501.4405, L503.7505, L501.1800, L501.4600, L001.0705, L501.4100, L501.4305 ####[facility] [address] [place], [address] Basic Metabolic Profile (BMP )on 01-11-2025 BUN/CRE 9.1 RATIO Low 10-20 [facility] Comment on above: Performed By: #### L 500.2500, L100.0500 ####[facility] [address] [place], [address] Calcium [Mass/Vol] 7.7 mg/dL Normal 7.6-11.0 [facility] Comment on above: Performed By: #### L 500.2500, L100.0500 ####[facility] [address] [place], [address] Chloride [Moles/Vol] 107 mmol/L Normal 98-108 [facility] Comment on above: Performed By: #### L 500.2500, L100.0500 ####[facility] [address] [place], [address] CO2 [Moles/Vol] 16.3 mmol/L Low 21.0-32.0 [facility] Comment on above: Performed By: #### L 500.2500, L100.0500 ####[facility] [address] [place], [address] Creatinine [Mass/Vol] 1.41 mg/dL High 0.70-1.20 [facility] Comment on above: Performed By: #### L 500.2500, L100.0500 ####[facility] [address] [place], [address] ECRCL 49.06 ml/min Low 50-250 [facility] Comment on above: Performed By: #### L 500.2500, L100.0500 ####[facility] [address] [place], [address] GAP 13 Normal 5-15 [facility] Comment on above: Performed By: #### L 500.2500, L100.0500 ####[facility] [address] [place], [address] GFR/1.73 sq M.predicted among non-blacks MDRD (S/P/Bld) [Vol rate/Area] 53 mL/min/{1.73_m2} Low >60 [facility] Comment on above: Result Comment: mL/m in/1.73m2 CKD-EPI Creatinine Equation (2020) Performed By: #### L 500.2500, L100.0500 ####[facility] [address] [place], [address] Glucose [Mass/Vol] 76 mg/dL Normal 70-99 [facility] Comment on above: Performed By: #### L 500.2500, L100.0500 ####[facility] [address] [place], [address] Potassium [Moles/Vol] 3.7 mmol/L Normal 3.3-5.1 [facility] Comment on above: Performed By: #### L 500.2500, L100.0500 ####[facility] [address] [place], [address] Sodium [Moles/Vol] 136 mmol/L Normal 133-145 [facility] Comment on above: Performed By: #### L 500.2500, L100.0500 ####[facility] [address] [place], [address] Urea nitrogen [Mass/Vol] 13 mg/dL Normal 4-19 [facility] Comment on above: Performed By: #### L 500.2500, L100.0500 ####[facility] [address] [place], [address] CBC W/Diff, Automatedon 03-0 -2024 Absolute Neut Normal 2.0-7.7 [facility] Comment on above: Result Comment: CANC ELLED PER SCHEDULE Performed By: #### L 500.4050, L100.0100 ####[facility] [address] [place], [address] HCT Normal 40-54 [facility] Comment on above: Result Comment: CANC ELLED PER SCHEDULE Performed By: #### L 500.4050, L100.0100 ####[facility] [address] [place], [address] HGB Normal 13.0-16.5 [facility] Comment on above: Result Comment: CANC ELLED PER SCHEDULE Performed By: #### L 500.4050, L100.0100 ####[facility] [address] [place], [address] MCH Normal 27.0-32.0 [facility] Comment on above: Result Comment: CANC ELLED PER SCHEDULE Performed By: #### L 500.4050, L100.0100 ####[facility] [address] [place], [address] MCHC Normal 32-36 [facility] Comment on above: Result Comment: CANC ELLED PER SCHEDULE Performed By: #### L 500.4050, L100.0100 ####[facility] [address] [place], [address] MCV Normal 80-94 [facility] Comment on above: Result Comment: CANC ELLED PER SCHEDULE Performed By: #### L 500.4050, L100.0100 ####[facility] [address] [place], [address] NEUT% Normal 47-70 [facility] Comment on above: Result Comment: CANC ELLED PER SCHEDULE Performed By: #### L 500.4050, L100.0100 ####[facility] [address] [place], [address] PLT Normal 150-450 [facility] Comment on above: Result Comment: CANC ELLED PER SCHEDULE Performed By: #### L 500.4050, L100.0100 ####[facility] [address] [place], [address] RBC Normal 4.6-6.2 [facility] Comment on above: Result Comment: CANC ELLED PER SCHEDULE Performed By: #### L 500.4050, L100.0100 ####[facility] [address] [place], [address] RDW CV Normal 11.6-14.6 [facility] Comment on above: Result Comment: CANC ELLED PER SCHEDULE Performed By: #### L 500.4050, L100.0100 ####[facility] [address] [place], [address] RDW SD Normal 35.1-43.9 [facility] Comment on above: Result Comment: CANC ELLED PER SCHEDULE Performed By: #### L 500.4050, L100.0100 ####[facility] [address] [place], [address] WBC Normal 4.4-11.0 [facility] Comment on above: Result Comment: CANC ELLED PER SCHEDULE Performed By: #### L 500.4050, L100.0100 ####[facility] [address] [place], [address] CBC-Complete Blood Cnt No Di ffon 01-11-2025 Erythrocyte distribution width (RBC) [Ratio] 19.2 % High 11.6-14.6 [facility] Comment on above: Performed By: #### L 500.2500, L100.0500 ####[facility] [address] [place], [address] Hematocrit (Bld) [Volume fraction] 35.2 % Low 40-54 [facility] Comment on above: Performed By: #### L 500.2500, L100.0500 ####[facility] [address] [place], [address] Hemoglobin (Bld) [Mass/Vol] 11.2 g/dL Low 13.0-16.5 [facility] Comment on above: Performed By: #### L 500.2500, L100.0500 ####[facility] [address] [place], [address] MCH (RBC) [Entitic mass] 23.2 pg Low 27.0-32.0 [facility] Comment on above: Performed By: #### L 500.2500, L100.0500 ####[facility] [address] [place], [address] MCHC (RBC) [Mass/Vol] 31.8 g/dL Low 32-36 [facility] Comment on above: Performed By: #### L 500.2500, L100.0500 ####[facility] [address] [place], [address] MCV (RBC) [Entitic vol] 72.9 fL Low 80-94 [facility] Comment on above: Performed By: #### L 500.2500, L100.0500 ####[facility] [address] [place], [address] Platelet mean volume (Bld) [Entitic vol] 9.4 fL Normal 6.2-12.0 [facility] Comment on above: Performed By: #### L 500.2500, L100.0500 ####[facility] [address] [place], [address] Platelets (Bld) [#/Vol] 182 10*3/uL Normal 150-450 [facility] Comment on above: Performed By: #### L 500.2500, L100.0500 ####[facility] [address] [place], [address] RBC (Bld) [#/Vol] 4.83 10*6/uL Normal 4.6-6.2 [facility] Comment on above: Performed By: #### L 500.2500, L100.0500 ####[facility] [address] [place], [address] RDW SD 50.2 fl High 35.1-43.9 [facility] Comment on above: Performed By: #### L 500.2500, L100.0500 ####[facility] [address] [place], [address] WBC (Bld) [#/Vol] 7.5 10*3/uL Normal 4.4-11.0 [facility] Comment on above: Performed By: #### L 500.2500, L100.0500 ####[facility] [address] [place], [address] CDIFF (PCR)on 01-11-2025 CDIFF Normal [facility] Comment on above: Performed By: #### M 100.6796 ####[facility] [address] [place], [address] Chest 1 View (Portable)on Chest 1 View (Portable) Normal [facility] Clostridium difficile detect ion by polymerase chain reactionOrdered By: Indio Simon on 01-11-2025 C. difficile DNA DAVID+probe Ql (Unsp spec) [facility] Comprehensive Metabolic Prof shobha 01-11-2025 ALB Normal 3.4-4.8 [facility] Comment on above: Result Comment: CANC ELLED PER SCHEDULE Performed By: #### L 500.4050, L100.0100 ####[facility] [address] [place], [address] ALK PHOS Normal 40-129 [facility] Comment on above: Result Comment: CANC ELLED PER SCHEDULE Performed By: #### L 500.4050, L100.0100 ####[facility] [address] [place], [address] ALT Normal <=46 [facility] Comment on above: Result Comment: CANC ELLED PER SCHEDULE Performed By: #### L 500.4050, L100.0100 ####[facility] [address] [place], [address] AST Normal <=37 [facility] Comment on above: Result Comment: CANC ELLED PER SCHEDULE Performed By: #### L 500.4050, L100.0100 ####[facility] [address] [place], [address] BUN Normal 4-19 [facility] Comment on above: Result Comment: CANC ELLED PER SCHEDULE Performed By: #### L 500.4050, L100.0100 ####[facility] [address] [place], [address] BUN/CRE Normal 10-20 [facility] Comment on above: Result Comment: CANC ELLED PER SCHEDULE Performed By: #### L 500.4050, L100.0100 ####[facility] [address] [place], [address] Calcium Normal 7.6-11.0 [facility] Comment on above: Result Comment: CANC ELLED PER SCHEDULE Performed By: #### L 500.4050, L100.0100 ####[facility] [address] [place], [address] CL Normal 98-108 [facility] Comment on above: Result Comment: CANC ELLED PER SCHEDULE Performed By: #### L 500.4050, L100.0100 ####[facility] [address] [place], [address] CO2 Normal 21.0-32.0 [facility] Comment on above: Result Comment: CANC ELLED PER SCHEDULE Performed By: #### L 500.4050, L100.0100 ####[facility] [address] [place], [address] CREAT,SERUM Normal 0.70-1.20 [facility] Comment on above: Result Comment: CANC ELLED PER SCHEDULE Performed By: #### L 500.4050, L100.0100 ####[facility] [address] [place], [address] eGFR Normal >60 [facility] Comment on above: Result Comment: CANC ELLED PER SCHEDULE Performed By: #### L 500.4050, L100.0100 ####[facility] [address] [place], [address] GAP Normal 5-15 [facility] Comment on above: Result Comment: CANC ELLED PER SCHEDULE Performed By: #### L 500.4050, L100.0100 ####[facility] [address] [place], [address] GLU Normal 70-99 [facility] Comment on above: Result Comment: CANC ELLED PER SCHEDULE Performed By: #### L 500.4050, L100.0100 ####[facility] [address] [place], [address] Potassium Normal 3.3-5.1 [facility] Comment on above: Result Comment: CANC ELLED PER SCHEDULE Performed By: #### L 500.4050, L100.0100 ####[facility] [address] [place], [address] T BILI Normal 0.00-1.30 [facility] Comment on above: Result Comment: CANC ELLED PER SCHEDULE Performed By: #### L 500.4050, L100.0100 ####[facility] [address] [place], [address] T PROT Normal 5.9-8.4 [facility] Comment on above: Result Comment: CANC ELLED PER SCHEDULE Performed By: #### L 500.4050, L100.0100 ####[facility] [address] [place], [address] Comprehensive Metabolic Profil Normal 133-145 [facility] Comment on above: Result Comment: CANC ELLED PER SCHEDULE Performed By: #### L 500.4050, L100.0100 ####[facility] [address] [place], [address] Echo Completeon 01-11-2025 Echo Complete Normal [facility] L503.7505on 01-11-2025 Natriuretic peptide B (Bld) [Mass/Vol] 2610 pg/mL High <=900 [facility] Comment on above: Result Comment: Hear t Failure Unlikely: < 300 pg/mLHeart Failure Likely< 50 Years: > 450 pg/mL50-75 Years: > 900 pg/mL>75 Years: > 1800 pg/mL Performed By: #### L 501.4405, L503.7505, L501.1800, L501.4600, L001.0705, L501.4100, L501.4305 ####[facility] [address] [place], [address] M100.678on 01-11-2025 M100.678 Normal [facility] [facility] Comment on above: Performed By: #### M 100.678 ####[facility] [address] [place], [address] No Panel InformationOrdered By: Katlin Dwyer on 01-11-2025 2610 pg/mL High <900 [facility] Protein, Totalon 01-11-2025 Albumin/Globulin [Mass ratio] 1.5 {ratio} Normal 0.9-2.4 [facility] Comment on above: Performed By: #### L 501.4405, L503.7505, L501.1800, L501.4600, L001.0705, L501.4100, L501.4305 ####[facility] [address] [place], [address] Globulin (S) [Mass/Vol] 1.7 g/dL Low 2.2-4.2 [facility] Comment on above: Performed By: #### L 501.4405, L503.7505, L501.1800, L501.4600, L001.0705, L501.4100, L501.4305 ####[facility] [address] [place], [address] T PROT 4.3 g/dL Low 5.9-8.4 [facility] Comment on above: Performed By: #### L 501.4405, L503.7505, L501.1800, L501.4600, L001.0705, L501.4100, L501.4305 ####[facility] [address] [place], [address] Total Bilirubinon 01-11-2025 Bilirubin [Mass/Vol] 0.45 mg/dL Normal 0.00-1.30 [facility] Comment on above: Performed By: #### L 501.4405, L503.7505, L501.1800, L501.4600, L001.0705, L501.4100, L501.4305 ####[facility] [address] [place], [address] 12 Lead EKGon 01-10-2025 12 Lead EKG Normal [facility] Bilirubin Test strip Ql (U)O rdered By: Chris Medina on 01-10-2025 Bilirubin Ql (U) Negative Negative [facility] Brain/Head without Contrasto n 01-10-2025 Brain/Head without Contrast Normal [facility] CBC W/Diff, Automatedon Absolute Lymph 0.83 X10 3/uL Normal 0.83-4.51 [facility] Comment on above: Performed By: #### L 100.0100, L500.4050 ####[facility] [address] [place], [address] Absolute Neut 2.7 X10 3/uL Normal 2.0-7.7 [facility] Comment on above: Performed By: #### L 100.0100, L500.4050 ####[facility] [address] [place], [address] Basophils/100 WBC (Bld) 1.0 % Normal 0-1 [facility] Comment on above: Performed By: #### L 100.0100, L500.4050 ####[facility] [address] [place], [address] Eosinophils/100 WBC (Bld) 2.8 % Normal 0-5 [facility] Comment on above: Performed By: #### L 100.0100, L500.4050 ####[facility] [address] [place], [address] Erythrocyte distribution width (RBC) [Ratio] 19.4 % High 11.6-14.6 [facility] Comment on above: Performed By: #### L 100.0100, L500.4050 ####[facility] [address] [place], [address] Hematocrit (Bld) [Volume fraction] 38.4 % Low 40-54 [facility] Comment on above: Performed By: #### L 100.0100, L500.4050 ####[facility] [address] [place], [address] Hemoglobin (Bld) [Mass/Vol] 12.3 g/dL Low 13.0-16.5 [facility] Comment on above: Performed By: #### L 100.0100, L500.4050 ####[facility] [address] [place], [address] IG% 3.200 High 0.0-0.9 [facility] Comment on above: Result Comment: IG% - Immature Granulocytes (promyelocytes, myelocytes andmetamyelocytes) > 1% indicates that a LEFT SHIFT is Present. Performed By: #### L 100.0100, L500.4050 ####[facility] [address] [place], [address] Lymphocytes/100 WBC (Bld) 16.8 % Low 19-41 [facility] Comment on above: Performed By: #### L 100.0100, L500.4050 ####[facility] [address] [place], [address] MCH (RBC) [Entitic mass] 22.9 pg Low 27.0-32.0 [facility] Comment on above: Performed By: #### L 100.0100, L500.4050 ####[facility] [address] [place], [address] MCHC (RBC) [Mass/Vol] 32.0 g/dL Normal 32-36 [facility] Comment on above: Performed By: #### L 100.0100, L500.4050 ####[facility] [address] [place], [address] MCV (RBC) [Entitic vol] 71.6 fL Low 80-94 [facility] Comment on above: Performed By: #### L 100.0100, L500.4050 ####[facility] [address] [place], [address] Monocytes/100 WBC (Bld) 21.9 % High 0-10 [facility] Comment on above: Performed By: #### L 100.0100, L500.4050 ####[facility] [address] [place], [address] Neutrophils/100 WBC (Bld) 54.3 % Normal 47-70 [facility] Comment on above: Performed By: #### L 100.0100, L500.4050 ####[facility] [address] [place], [address] Nucleated RBC (Bld) [#/Vol] 0 10*3/uL Normal 0-5 [facility] Comment on above: Performed By: #### L 100.0100, L500.4050 ####[facility] [address] [place], [address] Platelet mean volume (Bld) [Entitic vol] 8.8 fL Normal 6.2-12.0 [facility] Comment on above: Performed By: #### L 100.0100, L500.4050 ####[facility] [address] [place], [address] Platelets (Bld) [#/Vol] 201 10*3/uL Normal 150-450 [facility] Comment on above: Performed By: #### L 100.0100, L500.4050 ####[facility] [address] [place], [address] RBC (Bld) [#/Vol] 5.36 10*6/uL Normal 4.6-6.2 [facility] Comment on above: Performed By: #### L 100.0100, L500.4050 ####[facility] [address] [place], [address] RDW SD 48.8 fl High 35.1-43.9 [facility] Comment on above: Performed By: #### L 100.0100, L500.4050 ####[facility] [address] [place], [address] WBC (Bld) [#/Vol] 4.9 10*3/uL Normal 4.4-11.0 [facility] Comment on above: Performed By: #### L 100.0100, L500.4050 ####[facility] [address] [place], [address] CT Chest, Abd, Pel w/Contras ton 01-10-2025 CT Chest, Abd, Pel w/Contrast Normal [facility] Chest 1 View (Portable)on Chest 1 View (Portable) Normal [facility] Comprehensive Metabolic Prof ilon 01-10-2025 AST [Catalytic activity/Vol] 19 U/L Normal <=37 [facility] Comment on above: Performed By: #### L 100.0100, L500.4050 ####[facility] [address] [place], [address] Emergency Department Summary on 01-10-2025 Emergency Department Summary Normal [facility] H AND P Exam - Hospitaliston 01-10-2025 H&P Exam - Hospitalist Normal [facility] Influenza virus A and B and SARS-CoV-2 (COVID-19) and Respiratory syncytial virus RNAOrdered By: Chris Medina on 01-10-2025 SARS-CoV-2 (COVID-19) RNA DAVID+probe Ql (Unsp spec) Influenzae A Abnormal [facility] Ketones Test strip Ql (U)Ord ered By: Chris Medina on 01-10-2025 Ketones Ql (U) 15 mg/dl High Negative [facility] L509.7001on 01-10-2025 Procalcitonin 0.71 ng/mL High <=0.10 [facility] Comment on above: Result Comment: Inte rpretation:<0.10-0.25 ng/mL: Antibiotic therapy discouraged. Bacterialinfection unlikely.0.25-0.50 ng/mL: Antibiotic therapy encouraged. Bacterialinfection possible.>0.50 ng/mL: Antibiotic therapy strongly encouraged.Suggestive of presence of bacterial infection.PCT should always be interpreted in the clinical context ofthe patient. Therefore, clinicians should use the PCTresults in conjunction with other laboratory findings andclinical signs of the patient. Performed By: #### L 509.7001 ####[facility] [address] [facility] [place] [id number] Mucus LM Ql (Urine sed)Order ed By: Chris Medina on 01-10-2025 Mucus Ql (Urine sed) 0 SEEN /hpf [facility] Nitrite Test strip Ql (U)Ord ered By: Chris Medina on 01-10-2025 Nitrite Ql (U) Negative Negative [facility] No Panel InformationOrdered By: Chris Medina on 01-10-2025 0.71 ng/mL High <0.11 [facility] Protein Test strip Ql (U)Ord ered By: Chris Medina on 01-10-2025 Protein Ql (U) 15 mg/dl High Negative [facility] Squamous epithelial cells de tection in urine sediment by light microscopyOrdered By: Chris Medina on 01-10-2025 Epithelial cells.squamous LM Ql (Urine sed) 0 SEEN /hpf 0-5 [facility] Transitional cells detection in urine sediment by light microscopyOrdered By: Chris Medina on 01-10-2025 Transitional cells LM Ql (Urine sed) 0-5 SEEN /hpf 0-5 [facility] Urinalysis, Completeon 01-10 EPI,TRANSITION 0-5 SEEN Normal 0-5 [facility] Comment on above: Order Comment: SE CTOR TO SPECIFY Performed By: #### L 400.0001 ####[facility] [address] [facility] [place] [id number] RBC 0-5 SEEN Normal 0-5 [facility] Comment on above: Order Comment: SE CTOR TO SPECIFY Performed By: #### L 400.0001 ####[facility] [address] [facility] [place] [phone] WBC 10-25 SEEN Normal 0-5 [facility] Comment on above: Order Comment: COLLE CTOR TO SPECIFY Performed By: #### L 400.0001 ####[facility] [address] [place], [address] BACTERIA 1+ /hpf Normal None Seen [facility] Comment on above: Order Comment: SE CTOR TO SPECIFY Performed By: #### L 400.0001 ####[facility] [address] [place], [address] EPI,SQUAMOUS 0 SEEN Normal 0-5 [facility] Comment on above: Order Comment: SE CTOR TO SPECIFY Performed By: #### L 400.0001 ####[facility] [address] [place], [address] Mucus Ql (Urine sed) 0 SEEN Normal [facility] Comment on above: Order Comment: SE CTOR TO SPECIFY Performed By: #### L 400.0001 ####[facility] [address] [place], [address] Urine clarityOrdered By: Jessica Medina on 01-10-2025 Clarity (U) Sl. Cloudy Clear [facility] Urine color determinationOrd ered By: Chirs Medina on 01-10-2025 Color (U) Yellow Yellow [facility] Urine glucose detectionOrder ed By: Chris Medina on 01-10-2025 Glucose Ql (U) Normal mg/dl Normal [facility] Urine leukocyte esterase det ection by dipstickOrdered By: Chris Medina on 01-10-2025 Leukocyte esterase Test strip Ql (U) 25 /ul High Negative [facility] Urine pHOrdered By: Rema Medina on 01-10-2025 pH (U) 6.0 [pH] 5.0 - 8.0 [facility] Urine sediment bacteria coun t by microscopy (number/high power field)Ordered By: Chris Medina on 01-10-2025 Bacteria LM.HPF (Urine sed) [#/Area] 1 /[HPF] None Seen [facility] Urine specific gravity measu rementOrdered By: Chris Medina on 01-10-2025 Specific gravity (U) [Rel density] 1.010 1.002-1.030 [facility] Urine urobilinogen measureme ntOrdered By: Chris Medina on 01-10-2025 Urobilinogen Ql (U) Normal mg/dl Normal [facility] White blood cell countOrdere d By: Chris Medina on 01-10-2025 White blood cell count 10-25 SEEN /hpf 0-5 [facility] Absolute lymphocyte countOrd ered By: Indio iSmon on 01-07-2025 Lymphocytes Auto (Unsp spec) [#/Vol] 0.82 10*3/uL Low 0.83-4.51 [facility] Automated lymphocyte count a s percentage of total leukocytesOrdered By: Indio Simon on 01-07-2025 Lymphocytes/100 WBC Auto (Unsp spec) 17.0 % Low 19-41 [facility] BUN/creatinine ratioOrdered By: Indio Simon on 01-07-2025 Urea nitrogen/Creatinine [Mass ratio] 10.2 mg/mg 10-20 [facility] Basophil percentageOrdered B y: Indio Simon on 01-07-2025 Basophils/100 WBC (Bld) 1.0 % 0-1 [facility] Bilirubin, totalOrdered By: Indio Simon on 01-07-2025 Bilirubin [Mass/Vol] 0.43 mg/dL 0.00-1.30 [facility] CBC W/Diff, Automatedon - Absolute Lymph 0.82 X10 3/uL Low 0.83-4.51 [facility] Comment on above: Performed By: #### L 500.4050, L100.0100 ####[facility] [address] [place], [place], [id number] Absolute Neut 2.7 X10 3/uL Normal 2.0-7.7 [facility] Comment on above: Performed By: #### L 500.4050, L100.0100 ####[facility] [address] [place], [address] Basophils/100 WBC (Bld) 1.0 % Normal 0-1 [facility] Comment on above: Performed By: #### L 500.4050, L100.0100 ####[facility] [address] [place], [address] Eosinophils/100 WBC (Bld) 8.3 % High 0-5 [facility] Comment on above: Performed By: #### L 500.4050, L100.0100 ####[facility] [address] [place], [address] Erythrocyte distribution width (RBC) [Ratio] 19.6 % High 11.6-14.6 [facility] Comment on above: Performed By: #### L 500.4050, L100.0100 ####[facility] [address] [place], [address] Hematocrit (Bld) [Volume fraction] 39.1 % Low 40-54 [facility] Comment on above: Performed By: #### L 500.4050, L100.0100 ####[facility] [address] [place], [address] Hemoglobin (Bld) [Mass/Vol] 12.6 g/dL Low 13.0-16.5 [facility] Comment on above: Performed By: #### L 500.4050, L100.0100 ####[facility] [address] [place], [address] IG% 1.500 High 0.0-0.9 [facility] Comment on above: Result Comment: IG% - Immature Granulocytes (promyelocytes, myelocytes andmetamyelocytes) > 1% indicates that a LEFT SHIFT is Present. Performed By: #### L 500.4050, L100.0100 ####[facility] [address] [place], [address] Lymphocytes/100 WBC (Bld) 17.0 % Low 19-41 [facility] Comment on above: Performed By: #### L 500.4050, L100.0100 ####[facility] [address] [place], [address] MCH (RBC) [Entitic mass] 23.2 pg Low 27.0-32.0 [facility] Comment on above: Performed By: #### L 500.4050, L100.0100 ####[facility] [address] [place], [address] MCHC (RBC) [Mass/Vol] 32.2 g/dL Normal 32-36 [facility] Comment on above: Performed By: #### L 500.4050, L100.0100 ####[facility] [address] [place], [address] MCV (RBC) [Entitic vol] 72.0 fL Low 80-94 [facility] Comment on above: Performed By: #### L 500.4050, L100.0100 ####[facility] [address] [place], [address] Monocytes/100 WBC (Bld) 16.0 % High 0-10 [facility] Comment on above: Performed By: #### L 500.4050, L100.0100 ####[facility] [address] [place], [address] Neutrophils/100 WBC (Bld) 56.2 % Normal 47-70 [facility] Comment on above: Performed By: #### L 500.4050, L100.0100 ####[facility] [address] [place], [address] Nucleated RBC (Bld) [#/Vol] 0 10*3/uL Normal 0-5 [facility] Comment on above: Performed By: #### L 500.4050, L100.0100 ####[facility] [address] [place], [address] Platelet mean volume (Bld) [Entitic vol] 9.0 fL Normal 6.2-12.0 [facility] Comment on above: Performed By: #### L 500.4050, L100.0100 ####[facility] [address] [place], [address] Platelets (Bld) [#/Vol] 262 10*3/uL Normal 150-450 [facility] Comment on above: Performed By: #### L 500.4050, L100.0100 ####[facility] [address] [place], [address] RBC (Bld) [#/Vol] 5.43 10*6/uL Normal 4.6-6.2 [facility] Comment on above: Performed By: #### L 500.4050, L100.0100 ####[facility] [address] [place], [address] RDW SD 49.5 fl High 35.1-43.9 [facility] Comment on above: Performed By: #### L 500.4050, L100.0100 ####[facility] [address] [place], [address] WBC (Bld) [#/Vol] 4.8 10*3/uL Normal 4.4-11.0 [facility] Comment on above: Performed By: #### L 500.4050, L100.0100 ####[facility] [address] [place], [address] Carbon dioxide measurementOr dered By: Indio Simon on 01-07-2025 CO2 [Moles/Vol] 18.2 mmol/L Low 22.0-29.0 [facility] Chloride measurementOrdered By: Indio Simon on 01-07-2025 Chloride [Moles/Vol] 98 mmol/L 96-108 [facility] Comprehensive Metabolic Prof ilon 01-07-2025 Albumin [Mass/Vol] 3.0 g/dL Low 3.4-4.8 [facility] Comment on above: Performed By: #### L 500.4050, L100.0100 ####[facility] [address] [place], [address] Albumin/Globulin [Mass ratio] 1.4 {ratio} Normal 0.9-2.4 [facility] Comment on above: Performed By: #### L 500.4050, L100.0100 ####[facility] [address] [place], [address] ALK PHOS 54 U/L Normal 40-129 [facility] Comment on above: Performed By: #### L 500.4050, L100.0100 ####[facility] [address] [place], [address] ALT [Catalytic activity/Vol] 10 U/L Normal <=46 [facility] Comment on above: Performed By: #### L 500.4050, L100.0100 ####[facility] [address] [place], [address] Anion gap [Moles/Vol] 15 mmol/L Normal 5-15 [facility] Comment on above: Performed By: #### L 500.4050, L100.0100 ####[facility] [address] [place], [address] AST [Catalytic activity/Vol] 18 U/L Normal <=37 [facility] Comment on above: Performed By: #### L 500.4050, L100.0100 ####[facility] [address] [place], [address] Bilirubin [Mass/Vol] 0.43 mg/dL Normal 0.00-1.30 [facility] Comment on above: Performed By: #### L 500.4050, L100.0100 ####[facility] [address] [place], [address] BUN/CRE 10.2 RATIO Normal 10-20 [facility] Comment on above: Performed By: #### L 500.4050, L100.0100 ####[facility] [address] [place], [address] Calcium [Mass/Vol] 8.9 mg/dL Normal 7.6-11.0 [facility] Comment on above: Performed By: #### L 500.4050, L100.0100 ####[facility] [address] [place], [address] Chloride [Moles/Vol] 98 mmol/L Normal 96-108 [facility] Comment on above: Performed By: #### L 500.4050, L100.0100 ####[facility] [address] [place], [address] CO2 [Moles/Vol] 18.2 mmol/L Low 22.0-29.0 [facility] Comment on above: Performed By: #### L 500.4050, L100.0100 ####[facility] [address] [place], [address] Creatinine [Mass/Vol] 1.14 mg/dL Normal 0.70-1.20 [facility] Comment on above: Performed By: #### L 500.4050, L100.0100 ####[facility] [address] [place], [address] ECRCL 60.21 ml/min Normal [facility] Comment on above: Performed By: #### L 500.4050, L100.0100 ####[facility] [address] [place], [address] GFR/1.73 sq M.predicted among non-blacks MDRD (S/P/Bld) [Vol rate/Area] 69 mL/min/{1.73_m2} Normal >60 [facility] Comment on above: Result Comment: mL/m in/1.73m2 CKD-EPI Creatinine Equation (2020) Performed By: #### L 500.4050, L100.0100 ####[facility] [address] [place], [address] Globulin (S) [Mass/Vol] 2.2 g/dL Normal 2.2-4.2 [facility] Comment on above: Performed By: #### L 500.4050, L100.0100 ####[facility] [address] [place], [address] Glucose [Mass/Vol] 96 mg/dL Normal 70-99 [facility] Comment on above: Performed By: #### L 500.4050, L100.0100 ####[facility] [address] [place], [address] Potassium [Moles/Vol] 3.6 mmol/L Normal 3.3-5.1 [facility] Comment on above: Performed By: #### L 500.4050, L100.0100 ####[facility] [address] [place], [address] Sodium [Moles/Vol] 131 mmol/L Low 133-145 [facility] Comment on above: Performed By: #### L 500.4050, L100.0100 ####[facility] [address] [place], [address] T PROT 5.3 g/dL Low 5.9-8.4 [facility] Comment on above: Performed By: #### L 500.4050, L100.0100 ####[facility] [address] [place], [address] Urea nitrogen [Mass/Vol] 12 mg/dL Normal 4-19 [facility] Comment on above: Performed By: #### L 500.4050, L100.0100 ####[facility] [address] [place], [place], [address] ENTERIC PATHOGEN PANEL STOOL on 01-07-2025 EP PANEL Normal [facility] Comment on above: Performed By: #### M 100.0605, M100.637 ####[facility] [address] [place], [place], [id number] Emergency Department Summary on 01-07-2025 Emergency Department Summary Normal [facility] Eosinophil percentageOrdered By: Indio Simon on 01-07-2025 Eosinophils/100 WBC (Bld) 8.3 % High 0-5 [facility] Erythrocyte distribution wid th ratioOrdered By: Indio Simon on 01-07-2025 Erythrocyte distribution width (RBC) [Ratio] 19.6 % High 11.6-14.6 [facility] Erythrocyte distribution wid th standard deviationOrdered By: Indio Simon on 01-07-2025 Erythrocyte distribution width (RBC) [Ratio] 49.5 fl High 35.1-43.9 [facility] Glomerular filtration rate ( GFR) estimation/1.73 sq m using serum, plasma, or whole bOrdered By: Indio Simon on 01-07-2025 GFR/1.73 sq M.predicted among non-blacks MDRD (S/P/Bld) [Vol rate/Area] 69 mL/min/{1.73_m2} >60 [facility] Hematocrit Auto (Bld) [Volum e fraction]Ordered By: Indio Simon on 01-07-2025 Hematocrit (Bld) [Volume fraction] 39.1 % Low 40-54 [facility] Hemoglobin measurementOrdere d By: Indio Simon on 01-07-2025 Hemoglobin (Bld) [Mass/Vol] 12.6 g/dL Low 13.0-16.5 [facility] Immature granulocytes/100 WB C Auto (Bld)Ordered By: Indio Simon on 01-07-2025 Immature granulocytes/100 WBC (Bld) 1.500 % High 0.0-0.9 [facility] MCV (mean corpuscular volume ) determinationOrdered By: Indio Simon on 01-07-2025 MCV (RBC) [Entitic vol] 72.0 fL Low 80-94 [facility] Mean corpuscular hemoglobin (MCH) determinationOrdered By: Indio Simon on 01-07-2025 MCH (RBC) [Entitic mass] 23.2 pg Low 27.0-32.0 [facility] Monocyte percentageOrdered B y: Indio Simon on 01-07-2025 Monocytes/100 WBC (Bld) 16.0 % High 0-10 [facility] Neutrophil percentageOrdered By: Indio Simon on 01-07-2025 Neutrophils/100 WBC (Bld) 56.2 % 47-70 [facility] No Panel InformationOrdered By: Indio Simon on 01-07-2025 18 U/L <38 [facility] Platelet countOrdered By: Destinee Simon on 01-07-2025 Platelets (Bld) [#/Vol] 262 10*3/uL 150-450 [facility] RBC Auto (Bld) [#/Vol]Ordere d By: Indio Simon on 01-07-2025 RBC (Bld) [#/Vol] 5.43 10*6/uL 4.6-6.2 [facility] Serum creatinine measurement (mass/volume)Ordered By: Indio Simon on 01-07-2025 Creatinine [Mass/Vol] 1.14 mg/dL 0.70-1.20 [facility] Serum globulin measurementOr dered By: Indio Simon on 01-07-2025 Globulin (S) [Mass/Vol] 2.2 g/dL 2.2-4.2 [facility] Serum glucose measurement (m ass/volume)Ordered By: Indio Simon on 01-07-2025 Glucose [Mass/Vol] 96 mg/dL 70-99 [facility] Serum or plasma alanine kong otransferase (ALT) measurementOrdered By: Indio Simon on 01-07-2025 ALT [Catalytic activity/Vol] 10 U/L <47 [facility] Serum or plasma albumin deangelo urement (mass/volume)Ordered By: Indio Simon on 01-07-2025 Albumin [Mass/Vol] 3.0 g/dL Low 3.4-4.8 [facility] Serum or plasma albumin/glob ulin mass ratioOrdered By: Indio Simon on 01-07-2025 Albumin/Globulin [Mass ratio] 1.4 {ratio} 0.9-2.4 [facility] Serum or plasma alkaline alie sphatase measurementOrdered By: Indio Simon on 01-07-2025 ALP [Catalytic activity/Vol] 54 U/L 40-129 [facility] Serum or plasma anion gap de termination (moles/volume)Ordered By: Indio Simon on 01-07-2025 Anion gap [Moles/Vol] 15 mmol/L 5-15 [facility] Serum or plasma calcium deangelo urement (mass/volume)Ordered By: Indio Simon on 01-07-2025 Calcium [Mass/Vol] 8.9 mg/dL 7.6-11.0 [facility] Serum or plasma potassium me asurementOrdered By: Indio Simon on 01-07-2025 Potassium [Moles/Vol] 3.6 mmol/L 3.3-5.1 [facility] Serum or plasma sodium measu rement (moles/volume)Ordered By: Indio Simon on 01-07-2025 Sodium [Moles/Vol] 131 mmol/L Low 133-145 [facility] Serum or plasma urea nitroge n measurement (mass/volume)Ordered By: Inido Simon on 01-07-2025 Urea nitrogen [Mass/Vol] 12 mg/dL 4-19 [facility] Stool Lactoferrin/WBCon WBCST Normal Reference Ran ge = Negative Fecal WBC Lactoferrin A Positive: Fecal WBC Lactoferrin present A Normal [facility] Comment on above: Performed By: #### M 100.0605, M100.637 ####[facility] [address] [place], [address] Stool lactoferrin detection by immunoassayOrdered By: Indio Simon on 01-07-2025 Lactoferrin IA Ql (Stl) [facility] Total proteinOrdered By: Randy Simon on 01-07-2025 Protein [Mass/Vol] 5.3 g/dL Low 5.9-8.4 [facility] White blood cell (WBC) count Ordered By: Indio Simon on 01-07-2025 WBC (Bld) [#/Vol] 4.8 10*3/uL 4.4-11.0 [facility] 36on 01-05-2025 36 Dick has seen th gloria records [facility] 36on 01-02-2025 36 Records requested [place] [id number] Talked to patient an d he verbalized understanding and will call those providers and see what they recommend. Normal [facility] [address] [facility] 36on 12-30-2024 36 S: Luli, from [employer] , spoke with [facility] nurse [facility] B: Onset of symptoms/concern RAMON 12/30/24 [...] understanding. No further need at this time. [place] [id number] S: Luli, from [employer] , spoke with [facility] B: Onset of symptoms/concern RAMON 12/30/24 A: [facility] calling lab results from today, no critical values noted and is faxing results to office as well. Verified fax number. R: Message to provider for review. No further needs at this time. 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 Sometimes we stopped these meds and lieu of his risk for possible GI bleeding. [place] [address] Staff to call this patient's senior officer Dr. Chambers in [place] to get a copy of the most recent colonoscopy and office notes about colonic AVM, lower GI bleeding, and possible treatments in the future. Also copy of the results of his recent camera endoscopy. That is not in this record. Normal [facility] 37on 12-30-2024 37 Increase Prilosec to 40 mg daily for 1 week and then down to 20 mg a day. 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 Follow-up with oncology for CAT scan imaging as directed. Normal [facility] Office Visiton 12-30-2024 Follow-up visit [id number] Mirna Arshad 1955 M Date Provider Department Center 12/30/2024 [id number] JENNINGS [facility] Family History Problem Relation Age of Onset Coronary artery disease Mother Comments: CABG Coronary artery disease Sister Comments: CABG Stroke Mother Comments: age 77 Lung cancer Mother No Known Problems Sister No Known Problems Brother No Known Problems Sister No Known Problems Sister Diabetes Sister Coronary artery disease Father Comments: age 50 [place] - smoker Coronary artery disease Brother Comments: age 47 [place] Family Status - Relation Status Age at Mother 77 Sister Alive Sister Alive Brother Alive Sister Alive Sister Alive Father 50 Brother 47 Level of Service:43212 DE OFFICE/OUTPATIENT ESTABLISHED MOD MDM 30 MIN Reason for Visit and Comments: Hospital Follow-up [832] - Fever [47] Respiratory Distress [554089] Vomiting [120] - Can't eat Normal [facility] Progress Noteon 12-30-2024 Progress Note [facility] - [address] [facility] [id number] Visit type: Established Patient Reason [...] Eliquis, patient should talk to oncologist and spinning operator on need for long-term treatment. Other orders [...] has been referred from Dr. Chambers in [place] to [facility] for evaluation. Apparently he had procedure for [...] 90 tablet 1 Lancets (OneTouch Delica Plus Frilvw89G) misc nitroglycerin (Nitrostat) 0.4 MG SL tablet [...] lung (HCC) Simin (more content not included)... [facility] 36on 12-28-2024 36 S: Patient's nanci collins with [facility] nurse regarding vomiting, no appetite, fever B: Onset of symptoms/concern 1 month ago A: Has been vomiting, still running fever, decreased appetite, was admitted to [facility] on 12/14 out 2/7, still not [...] organ transplant, splenectomy, chronic steroids) Protocols used: [id number] Normal [facility] Basic Metabolic Profile (BMP )on 12-23-2024 BUN Normal 7-18 [facility] Comment on above: Result Comment: Canc elled via OM: Order cancelled - Patient discharged Performed By: #### L 100.0100, L500.2500 ####[facility] [address] [place], [address] BUN/CRE Normal 10-20 [facility] Comment on above: Result Comment: Canc elled via OM: Order cancelled - Patient discharged Performed By: #### L 100.0100, L500.2500 ####[facility] [address] [place], [address] CA,Total Normal 8.5-10.1 [facility] Comment on above: Result Comment: Canc elled via OM: Order cancelled - Patient discharged Performed By: #### L 100.0100, L500.2500 ####[facility] [address] [place], [address] CL Normal 98-107 [facility] Comment on above: Result Comment: Canc elled via OM: Order cancelled - Patient discharged Performed By: #### L 100.0100, L500.2500 ####[facility] [address] [place], [address] CO2 Normal 21.0-32.0 [facility] Comment on above: Result Comment: Canc elled via OM: Order cancelled - Patient discharged Performed By: #### L 100.0100, L500.2500 ####[facility] [address] [place], [address] CREAT,SERUM Normal 0.70-1.30 [facility] Comment on above: Result Comment: Canc elled via OM: Order cancelled - Patient discharged Performed By: #### L 100.0100, L500.2500 ####[facility] [address] [place], [address] EST GFR Normal >60 [facility] Comment on above: Result Comment: Canc elled via OM: Order cancelled - Patient discharged Performed By: #### L 100.0100, L500.2500 ####[facility] [address] [place], [address] EST GFR - AA Normal >60 [facility] Comment on above: Result Comment: Canc elled via OM: Order cancelled - Patient discharged Performed By: #### L 100.0100, L500.2500 ####[facility] [address] [place], [address] GAP Normal 5-15 [facility] Comment on above: Result Comment: Canc elled via OM: Order cancelled - Patient discharged Performed By: #### L 100.0100, L500.2500 ####[facility] [address] [place], [address] GLU Normal 74-106 [facility] Comment on above: Result Comment: Canc elled via OM: Order cancelled - Patient discharged Performed By: #### L 100.0100, L500.2500 ####[facility] [address] [place], [address] Potassium Normal 3.5-5.1 [facility] Comment on above: Result Comment: Canc elled via OM: Order cancelled - Patient discharged Performed By: #### L 100.0100, L500.2500 ####[facility] [address] [place], [address] Basic Metabolic Profile (BMP) Normal 136-145 [facility] Comment on above: Result Comment: Canc elled via OM: Order cancelled - Patient discharged Performed By: #### L 100.0100, L500.2500 ####[facility] [address] [place], [address] CBC W/Diff, Automatedon 12-10 Absolute Neut Normal 2.0-7.7 [facility] Comment on above: Result Comment: Canc elled via OM: Order cancelled - Patient discharged Performed By: #### L 100.0100, L500.2500 ####[facility] [address] [place], [address] HCT Normal 40-54 [facility] Comment on above: Result Comment: Canc elled via OM: Order cancelled - Patient discharged Performed By: #### L 100.0100, L500.2500 ####[facility] [address] [place], [address] HGB Normal 13.0-16.5 [facility] Comment on above: Result Comment: Canc elled via OM: Order cancelled - Patient discharged Performed By: #### L 100.0100, L500.2500 ####[facility] [address] [place], [address] MCH Normal 27.0-32.0 [facility] Comment on above: Result Comment: Canc elled via OM: Order cancelled - Patient discharged Performed By: #### L 100.0100, L500.2500 ####[facility] [address] [place], [address] MCHC Normal 32-36 [facility] Comment on above: Result Comment: Canc elled via OM: Order cancelled - Patient discharged Performed By: #### L 100.0100, L500.2500 ####[facility] [address] [place], [address] MCV Normal 80-94 [facility] Comment on above: Result Comment: Canc elled via OM: Order cancelled - Patient discharged Performed By: #### L 100.0100, L500.2500 ####[facility] [address] [place], [address] NEUT% Normal 47-70 [facility] Comment on above: Result Comment: Canc elled via OM: Order cancelled - Patient discharged Performed By: #### L 100.0100, L500.2500 ####[facility] [address] [place], [address] PLT Normal 150-450 [facility] Comment on above: Result Comment: Canc elled via OM: Order cancelled - Patient discharged Performed By: #### L 100.0100, L500.2500 ####[facility] [address] [place], [address] RBC Normal 4.6-6.2 [facility] Comment on above: Result Comment: Canc elled via OM: Order cancelled - Patient discharged Performed By: #### L 100.0100, L500.2500 ####[facility] [address] [place], [address] RDW CV Normal 11.6-14.6 [facility] Comment on above: Result Comment: Canc elled via OM: Order cancelled - Patient discharged Performed By: #### L 100.0100, L500.2500 ####[facility] [address] [place], [address] RDW SD Normal 35.1-43.9 [facility] Comment on above: Result Comment: Canc elled via OM: Order cancelled - Patient discharged Performed By: #### L 100.0100, L500.2500 ####[facility] [address] [place], [address] WBC Normal 4.4-11.0 [facility] Comment on above: Result Comment: Canc elled via OM: Order cancelled - Patient discharged Performed By: #### L 100.0100, L500.2500 ####[facility] [address] [place], [address] Basic Metabolic Profile (BMP )on 12-22-2024 BUN Normal 7-18 [facility] Comment on above: Result Comment: Canc elled via OM: Order cancelled - Patient discharged Performed By: #### L 100.0100, L500.2500 ####[facility] [address] [place], [address] BUN/CRE Normal 10-20 [facility] Comment on above: Result Comment: Canc elled via OM: Order cancelled - Patient discharged Performed By: #### L 100.0100, L500.2500 ####[facility] [address] [place], [address] CA,Total Normal 8.5-10.1 [facility] Comment on above: Result Comment: Canc elled via OM: Order cancelled - Patient discharged Performed By: #### L 100.0100, L500.2500 ####[facility] [address] [place], [address] CL Normal 98-107 [facility] Comment on above: Result Comment: Canc elled via OM: Order cancelled - Patient discharged Performed By: #### L 100.0100, L500.2500 ####[facility] [address] [place], [address] CO2 Normal 21.0-32.0 [facility] Comment on above: Result Comment: Canc elled via OM: Order cancelled - Patient discharged Performed By: #### L 100.0100, L500.2500 ####[facility] [address] [place], [address] CREAT,SERUM Normal 0.70-1.30 [facility] Comment on above: Result Comment: Canc elled via OM: Order cancelled - Patient discharged Performed By: #### L 100.0100, L500.2500 ####[facility] [address] [place], [address] EST GFR Normal >60 [facility] Comment on above: Result Comment: Canc elled via OM: Order cancelled - Patient discharged Performed By: #### L 100.0100, L500.2500 ####[facility] [address] [place], [address] EST GFR - AA Normal >60 [facility] Comment on above: Result Comment: Canc elled via OM: Order cancelled - Patient discharged Performed By: #### L 100.0100, L500.2500 ####[facility] [address] [place], [address] GAP Normal 5-15 [facility] Comment on above: Result Comment: Canc elled via OM: Order cancelled - Patient discharged Performed By: #### L 100.0100, L500.2500 ####[facility] [address] [place], [address] GLU Normal 74-106 [facility] Comment on above: Result Comment: Canc elled via OM: Order cancelled - Patient discharged Performed By: #### L 100.0100, L500.2500 ####[facility] [address] [place], [address] Potassium Normal 3.5-5.1 [facility] Comment on above: Result Comment: Canc elled via OM: Order cancelled - Patient discharged Performed By: #### L 100.0100, L500.2500 ####[facility] [address] [place], [address] Basic Metabolic Profile (BMP) Normal 136-145 [facility] Comment on above: Result Comment: Canc elled via OM: Order cancelled - Patient discharged Performed By: #### L 100.0100, L500.2500 ####[facility] [address] [place], [address] CBC W/Diff, Automatedon 12-10 PATH REV Reviewed Normal [facility] Comment on above: Order Comment: UTO F ROM PORT Result Comment: Micr ocytic anemia.Clinical correlation necessary.Duglas Martínez M.D. 12/22/24 AMENDED REPORT 12/22/24 1502 PATH REV previously reported as: March Performed By: #### L 501.2300, L100.0100, L500.4050 ####[facility] [address] [place], [address] Absolute Neut Normal 2.0-7.7 [facility] Comment on above: Result Comment: Canc elled via OM: Order cancelled - Patient discharged Performed By: #### L 100.0100, L500.2500 ####[facility] [address] [place], [address] HCT Normal 40-54 [facility] Comment on above: Result Comment: Canc elled via OM: Order cancelled - Patient discharged Performed By: #### L 100.0100, L500.2500 ####[facility] [address] [place], [address] HGB Normal 13.0-16.5 [facility] Comment on above: Result Comment: Canc elled via OM: Order cancelled - Patient discharged Performed By: #### L 100.0100, L500.2500 ####[facility] [address] [place], [address] MCH Normal 27.0-32.0 [facility] Comment on above: Result Comment: Canc elled via OM: Order cancelled - Patient discharged Performed By: #### L 100.0100, L500.2500 ####[facility] [address] [place], [address] MCHC Normal 32-36 [facility] Comment on above: Result Comment: Canc elled via OM: Order cancelled - Patient discharged Performed By: #### L 100.0100, L500.2500 ####[facility] [address] [place], [address] MCV Normal 80-94 [facility] Comment on above: Result Comment: Canc elled via OM: Order cancelled - Patient discharged Performed By: #### L 100.0100, L500.2500 ####[facility] [address] [place], [address] NEUT% Normal 47-70 [facility] Comment on above: Result Comment: Canc elled via OM: Order cancelled - Patient discharged Performed By: #### L 100.0100, L500.2500 ####[facility] [address] [place], [address] PLT Normal 150-450 [facility] Comment on above: Result Comment: Canc elled via OM: Order cancelled - Patient discharged Performed By: #### L 100.0100, L500.2500 ####[facility] [address] [place], [address] RBC Normal 4.6-6.2 [facility] Comment on above: Result Comment: Canc elled via OM: Order cancelled - Patient discharged Performed By: #### L 100.0100, L500.2500 ####[facility] [address] [place], [address] RDW CV Normal 11.6-14.6 [facility] Comment on above: Result Comment: Canc elled via OM: Order cancelled - Patient discharged Performed By: #### L 100.0100, L500.2500 ####[facility] [address] [place], [address] RDW SD Normal 35.1-43.9 [facility] Comment on above: Result Comment: Canc elled via OM: Order cancelled - Patient discharged Performed By: #### L 100.0100, L500.2500 ####[facility] [address] [place], [address] WBC Normal 4.4-11.0 [facility] Comment on above: Result Comment: Canc elled via OM: Order cancelled - Patient discharged Performed By: #### L 100.0100, L500.2500 ####[facility] [address] [place], [address] Basic Metabolic Profile (BMP )on 12-21-2024 BUN Normal 7-18 [facility] Comment on above: Result Comment: Canc elled via OM: Order cancelled - Patient discharged Performed By: #### L 100.0100, L500.2500 ####[facility] [address] [place], [address] BUN/CRE Normal 10-20 [facility] Comment on above: Result Comment: Canc elled via OM: Order cancelled - Patient discharged Performed By: #### L 100.0100, L500.2500 ####[facility] [address] [place], [address] CA,Total Normal 8.5-10.1 [facility] Comment on above: Result Comment: Canc elled via OM: Order cancelled - Patient discharged Performed By: #### L 100.0100, L500.2500 ####[facility] [address] [place], [address] CL Normal 98-107 [facility] Comment on above: Result Comment: Canc elled via OM: Order cancelled - Patient discharged Performed By: #### L 100.0100, L500.2500 ####[facility] [address] [place], [address] CO2 Normal 21.0-32.0 [facility] Comment on above: Result Comment: Canc elled via OM: Order cancelled - Patient discharged Performed By: #### L 100.0100, L500.2500 ####[facility] [address] [place], [address] CREAT,SERUM Normal 0.70-1.30 [facility] Comment on above: Result Comment: Canc elled via OM: Order cancelled - Patient discharged Performed By: #### L 100.0100, L500.2500 ####[facility] [address] [place], [address] EST GFR Normal >60 [facility] Comment on above: Result Comment: Canc elled via OM: Order cancelled - Patient discharged Performed By: #### L 100.0100, L500.2500 ####[facility] [address] [place], [address] EST GFR - AA Normal >60 [facility] Comment on above: Result Comment: Canc elled via OM: Order cancelled - Patient discharged Performed By: #### L 100.0100, L500.2500 ####[facility] [address] [place], [address] GAP Normal 5-15 [facility] Comment on above: Result Comment: Canc elled via OM: Order cancelled - Patient discharged Performed By: #### L 100.0100, L500.2500 ####[facility] [address] [place], [address] GLU Normal 74-106 [facility] Comment on above: Result Comment: Canc elled via OM: Order cancelled - Patient discharged Performed By: #### L 100.0100, L500.2500 ####[facility] [address] [place], [address] Potassium Normal 3.5-5.1 [facility] Comment on above: Result Comment: Canc elled via OM: Order cancelled - Patient discharged Performed By: #### L 100.0100, L500.2500 ####[facility] [address] [place], [address] Basic Metabolic Profile (BMP) Normal 136-145 [facility] Comment on above: Result Comment: Canc elled via OM: Order cancelled - Patient discharged Performed By: #### L 100.0100, L500.2500 ####[facility] [address] [place], [address] Blood band neutrophil count as percentage of total leukocytesOrdered By: Angela Rodriguez on 12-21-2024 Band form neutrophils/100 WBC (Bld) 1 % 0-5 [facility] Blood eosinophils/100 leukoc ytesOrdered By: Angela Rodriguez on 12-21-2024 Eosinophils/100 WBC (Bld) 3 % 0-5 [facility] Blood lymphocytes/100 leukoc ytesOrdered By: Angela Sorianous on 12-21-2024 Lymphocytes/100 WBC (Bld) 17 % Low 19-41 [facility] Blood metamyelocytes/100 meera kocytesOrdered By: Angela Sorianous on 12-21-2024 Metamyelocytes/100 WBC (Bld) 1 % 0-1 [facility] Blood monocytes/100 leukocyt esOrdered By: Angela Sorianous on 12-21-2024 Monocytes/100 WBC (Bld) 5 % 0-10 [facility] Blood promyelocytes/100 leuk ocytesOrdered By: Angela Sorianous on 12-21-2024 Promyelocytes/100 WBC (Bld) 2 % High 0-0 [facility] Blood segmented neutrophils/ 100 leukocytesOrdered By: Angela Sorianous on 12-21-2024 Segmented neutrophils/100 WBC (Bld) 71 % High 47-70 [facility] CBC W/Diff, Automatedon 12-10 Absolute Neut Normal 2.0-7.7 [facility] Comment on above: Result Comment: Canc elled via OM: Order cancelled - Patient discharged Performed By: #### L 100.0100, L500.2500 ####[facility] [address] [place], [address] HCT Normal 40-54 [facility] Comment on above: Result Comment: Canc elled via OM: Order cancelled - Patient discharged Performed By: #### L 100.0100, L500.2500 ####[facility] [address] [place], [address] HGB Normal 13.0-16.5 [facility] Comment on above: Result Comment: Canc elled via OM: Order cancelled - Patient discharged Performed By: #### L 100.0100, L500.2500 ####[facility] [address] [place], [address] MCH Normal 27.0-32.0 [facility] Comment on above: Result Comment: Canc elled via OM: Order cancelled - Patient discharged Performed By: #### L 100.0100, L500.2500 ####[facility] [address] [place], [address] MCHC Normal 32-36 [facility] Comment on above: Result Comment: Canc elled via OM: Order cancelled - Patient discharged Performed By: #### L 100.0100, L500.2500 ####[facility] [address] [place], [address] MCV Normal 80-94 [facility] Comment on above: Result Comment: Canc elled via OM: Order cancelled - Patient discharged Performed By: #### L 100.0100, L500.2500 ####[facility] [address] [place], [address] NEUT% Normal 47-70 [facility] Comment on above: Result Comment: Canc elled via OM: Order cancelled - Patient discharged Performed By: #### L 100.0100, L500.2500 ####[facility] [address] [place], [address] PLT Normal 150-450 [facility] Comment on above: Result Comment: Canc elled via OM: Order cancelled - Patient discharged Performed By: #### L 100.0100, L500.2500 ####[facility] [address] [place], [address] RBC Normal 4.6-6.2 [facility] Comment on above: Result Comment: Canc elled via OM: Order cancelled - Patient discharged Performed By: #### L 100.0100, L500.2500 ####[facility] [address] [place], [address] RDW CV Normal 11.6-14.6 [facility] Comment on above: Result Comment: Canc elled via OM: Order cancelled - Patient discharged Performed By: #### L 100.0100, L500.2500 ####[facility] [address] [place], [address] RDW SD Normal 35.1-43.9 [facility] Comment on above: Result Comment: Canc elled via OM: Order cancelled - Patient discharged Performed By: #### L 100.0100, L500.2500 ####[facility] [address] [place], [address] WBC Normal 4.4-11.0 [facility] Comment on above: Result Comment: Canc elled via OM: Order cancelled - Patient discharged Performed By: #### L 100.0100, L500.2500 ####[facility] [address] [place], [address] Comprehensive Metabolic Prof ilon 12-21-2024 Albumin [Mass/Vol] 2.9 g/dL Low 3.2-5.0 [facility] Comment on above: Performed By: #### L 501.2300, L100.0100, L500.4050 ####[facility] [address] [place], [address] Albumin/Globulin [Mass ratio] 1.1 {ratio} Normal 0.9-2.4 [facility] Comment on above: Performed By: #### L 501.2300, L100.0100, L500.4050 ####[facility] [address] [place], [address] ALK P 42 U/L Low 45-117 [facility] Comment on above: Performed By: #### L 501.2300, L100.0100, L500.4050 ####[facility] [address] [place], [address] ALT [Catalytic activity/Vol] 26 U/L Normal 16-61 [facility] Comment on above: Performed By: #### L 501.2300, L100.0100, L500.4050 ####[facility] [address] [place], [address] AST [Catalytic activity/Vol] 13 U/L Low 15-37 [facility] Comment on above: Performed By: #### L 501.2300, L100.0100, L500.4050 ####[facility] [address] [place], [address] Bilirubin [Mass/Vol] 0.40 mg/dL Normal 0.20-1.00 [facility] Comment on above: Result Comment: For patients on eltrombopag therapy, use of Dimension [place] TBIL is not recommended. Performed By: #### L 501.2300, L100.0100, L500.4050 ####[facility] [address] [place], [address] BUN/CRE 17.1 RATIO Normal 10-20 [facility] Comment on above: Performed By: #### L 501.2300, L100.0100, L500.4050 ####[facility] [address] [place], [address] CA,Total 8.2 mg/dL Low 8.5-10.1 [facility] Comment on above: Performed By: #### L 501.2300, L100.0100, L500.4050 ####[facility] [address] [place], [address] Chloride [Moles/Vol] 112 mmol/L High 98-107 [facility] Comment on above: Performed By: #### L 501.2300, L100.0100, L500.4050 ####[facility] [address] [place], [address] CO2 [Moles/Vol] 24.0 mmol/L Normal 21.0-32.0 [facility] Comment on above: Performed By: #### L 501.2300, L100.0100, L500.4050 ####[facility] [address] [place], [address] Creatinine [Mass/Vol] 1.17 mg/dL Normal 0.70-1.30 [facility] Comment on above: Result Comment: The validity of the calculated GFR GFRAA in patients over70 years has not been determined. Clinical correlation isessential. Performed By: #### L 501.2300, L100.0100, L500.4050 ####[facility] [address] [place], [address] ECRCL 62.20 ml/min Normal [facility] Comment on above: Performed By: #### L 501.2300, L100.0100, L500.4050 ####[facility] [address] [place], [address] EST GFR - AA 79 mL/min Normal >60 [facility] Comment on above: Result Comment: Afri can Trinid[place] GFR Calc Performed By: #### L 501.2300, L100.0100, L500.4050 ####[facility] [address] [place], [address] GAP 6 Normal 5-15 [facility] Comment on above: Performed By: #### L 501.2300, L100.0100, L500.4050 ####[facility] [address] [place], [address] GFR/1.73 sq M.predicted among non-blacks MDRD (S/P/Bld) [Vol rate/Area] 65 mL/min/{1.73_m2} Normal >60 [facility] Comment on above: Result Comment: Non- GFR Calc Performed By: #### L 501.2300, L100.0100, L500.4050 ####[facility] [address] [place], [address] Globulin (S) [Mass/Vol] 2.6 g/dL Normal 2.2-4.2 [facility] Comment on above: Performed By: #### L 501.2300, L100.0100, L500.4050 ####[facility] [address] [place], [address] Glucose [Mass/Vol] 118 mg/dL High 74-106 [facility] Comment on above: Result Comment: Fast ing Glucose result from 100 to 125 mg/dLsuggests IMPAIRED HOMEOSTASIS per A.D.A. criteria. Performed By: #### L 501.2300, L100.0100, L500.4050 ####[facility] [address] [place], [address] Potassium [Moles/Vol] 3.9 mmol/L Normal 3.5-5.1 [facility] Comment on above: Performed By: #### L 501.2300, L100.0100, L500.4050 ####[facility] [address] [place], [address] Sodium [Moles/Vol] 142 mmol/L Normal 136-145 [facility] Comment on above: Performed By: #### L 501.2300, L100.0100, L500.4050 ####[facility] [address] [place], [address] T PROT 5.5 g/dL Low 6.4-8.2 [facility] Comment on above: Performed By: #### L 501.2300, L100.0100, L500.4050 ####[facility] [address] [place], [address] Urea nitrogen [Mass/Vol] 20 mg/dL High 7-18 [facility] Comment on above: Performed By: #### L 501.2300, L100.0100, L500.4050 ####[facility] [address] [place], [address] Oncology Visit Reporton 12-10 Oncology Visit Report Normal [facility] Phosphoruson 12-21-2024 Phosphate [Mass/Vol] 3.0 mg/dL Normal 2.5-4.9 [facility] Comment on above: Performed By: #### L 501.2300, L100.0100, L500.4050 ####[facility] [address] [place], [address] Review by pathologistOrdered By: Angela Rodriguez on 12-21-2024 Pathologist review [place] (Unsp spec) [Interp] Reviewed [facility] Comment on above: Previous reported re sult: Samira rehman Edited by: BETH on 12/22/24:1502Microcytic anemia.Clinical correlation necessary.Duglas Martínez M.D. 12/22/24 AMENDED REPORT 12/22/24 1502 PATH REV previously reported as: Samira rehman Total cell countOrdered By: Angela Rodriguez on 12-21-2024 Cells counted Molgen (Bld/Tiss) [#] 100 MANUAL DIFF [facility] Basic Metabolic Profile (BMP )on 12-20-2024 BUN Normal 7-18 [facility] Comment on above: Result Comment: Canc elled via OM: Order cancelled - Patient discharged Performed By: #### L 500.2500, L100.0100 ####[facility] [address] [place], [address] BUN/CRE Normal 10-20 [facility] Comment on above: Result Comment: Canc elled via OM: Order cancelled - Patient discharged Performed By: #### L 500.2500, L100.0100 ####[facility] [address] [place], [address] CA,Total Normal 8.5-10.1 [facility] Comment on above: Result Comment: Canc elled via OM: Order cancelled - Patient discharged Performed By: #### L 500.2500, L100.0100 ####[facility] [address] [place], [address] CL Normal 98-107 [facility] Comment on above: Result Comment: Canc elled via OM: Order cancelled - Patient discharged Performed By: #### L 500.2500, L100.0100 ####[facility] [address] [place], [address] CO2 Normal 21.0-32.0 [facility] Comment on above: Result Comment: Canc elled via OM: Order cancelled - Patient discharged Performed By: #### L 500.2500, L100.0100 ####[facility] [address] [place], [address] CREAT,SERUM Normal 0.70-1.30 [facility] Comment on above: Result Comment: Canc elled via OM: Order cancelled - Patient discharged Performed By: #### L 500.2500, L100.0100 ####[facility] [address] [place], [address] EST GFR Normal >60 [facility] Comment on above: Result Comment: Canc elled via OM: Order cancelled - Patient discharged Performed By: #### L 500.2500, L100.0100 ####[facility] [address] [place], [address] EST GFR - AA Normal >60 [facility] Comment on above: Result Comment: Canc elled via OM: Order cancelled - Patient discharged Performed By: #### L 500.2500, L100.0100 ####[facility] [address] [place], [address] GAP Normal 5-15 [facility] Comment on above: Result Comment: Canc elled via OM: Order cancelled - Patient discharged Performed By: #### L 500.2500, L100.0100 ####[facility] [address] [place], [address] GLU Normal 74-106 [facility] Comment on above: Result Comment: Canc elled via OM: Order cancelled - Patient discharged Performed By: #### L 500.2500, L100.0100 ####[facility] [address] [place], [address] Potassium Normal 3.5-5.1 [facility] Comment on above: Result Comment: Canc elled via OM: Order cancelled - Patient discharged Performed By: #### L 500.2500, L100.0100 ####[facility] [address] [place], [address] Basic Metabolic Profile (BMP) Normal 136-145 [facility] Comment on above: Result Comment: Canc elled via OM: Order cancelled - Patient discharged Performed By: #### L 500.2500, L100.0100 ####[facility] [address] [place], [address] CBC W/Diff, Automatedon 02- Absolute Neut Normal 2.0-7.7 [facility] Comment on above: Result Comment: Canc elled via OM: Order cancelled - Patient discharged Performed By: #### L 500.2500, L100.0100 ####[facility] [address] [place], [address] HCT Normal 40-54 [facility] Comment on above: Result Comment: Canc elled via OM: Order cancelled - Patient discharged Performed By: #### L 500.2500, L100.0100 ####[facility] [address] [place], [address] HGB Normal 13.0-16.5 [facility] Comment on above: Result Comment: Canc elled via OM: Order cancelled - Patient discharged Performed By: #### L 500.2500, L100.0100 ####[facility] [address] [place], [address] MCH Normal 27.0-32.0 [facility] Comment on above: Result Comment: Canc elled via OM: Order cancelled - Patient discharged Performed By: #### L 500.2500, L100.0100 ####[facility] [address] [place], [address] MCHC Normal 32-36 [facility] Comment on above: Result Comment: Canc elled via OM: Order cancelled - Patient discharged Performed By: #### L 500.2500, L100.0100 ####[facility] [address] [place], [address] MCV Normal 80-94 [facility] Comment on above: Result Comment: Canc elled via OM: Order cancelled - Patient discharged Performed By: #### L 500.2500, L100.0100 ####[facility] [address] [place], [address] NEUT% Normal 47-70 [facility] Comment on above: Result Comment: Canc elled via OM: Order cancelled - Patient discharged Performed By: #### L 500.2500, L100.0100 ####[facility] [address] [place], [address] PLT Normal 150-450 [facility] Comment on above: Result Comment: Canc elled via OM: Order cancelled - Patient discharged Performed By: #### L 500.2500, L100.0100 ####[facility] [address] [place], [address] RBC Normal 4.6-6.2 [facility] Comment on above: Result Comment: Canc elled via OM: Order cancelled - Patient discharged Performed By: #### L 500.2500, L100.0100 ####[facility] [address] [place], [address] RDW CV Normal 11.6-14.6 [facility] Comment on above: Result Comment: Canc elled via OM: Order cancelled - Patient discharged Performed By: #### L 500.2500, L100.0100 ####[facility] [address] [place], [address] RDW SD Normal 35.1-43.9 [facility] Comment on above: Result Comment: Canc elled via OM: Order cancelled - Patient discharged Performed By: #### L 500.2500, L100.0100 ####[facility] [address] [place], [address] WBC Normal 4.4-11.0 [facility] Comment on above: Result Comment: Canc elled via OM: Order cancelled - Patient discharged Performed By: #### L 500.2500, L100.0100 ####[facility] [address] [place], [address] Basic Metabolic Profile (BMP )on 12-19-2024 BUN Normal 7-18 [facility] Comment on above: Result Comment: Canc elled via OM: Order cancelled - Patient discharged Performed By: #### L 500.2500, L100.0100 ####[facility] [facility] [address] [place], [address] BUN/CRE Normal 10-20 [facility] Comment on above: Result Comment: Canc elled via OM: Order cancelled - Patient discharged Performed By: #### L 500.2500, L100.0100 ####[facility] [address] [place], [address] CA,Total Normal 8.5-10.1 [facility] Comment on above: Result Comment: Canc elled via OM: Order cancelled - Patient discharged Performed By: #### L 500.2500, L100.0100 ####[facility] [address] [place], [address] CL Normal 98-107 [facility] Comment on above: Result Comment: Canc elled via OM: Order cancelled - Patient discharged Performed By: #### L 500.2500, L100.0100 ####[facility] [address] [place], [address] CO2 Normal 21.0-32.0 [facility] Comment on above: Result Comment: Canc elled via OM: Order cancelled - Patient discharged Performed By: #### L 500.2500, L100.0100 ####[facility] [address] [place], [address] CREAT,SERUM Normal 0.70-1.30 [facility] Comment on above: Result Comment: Canc elled via OM: Order cancelled - Patient discharged Performed By: #### L 500.2500, L100.0100 ####[facility] [address] [place], [address] EST GFR Normal >60 [facility] Comment on above: Result Comment: Canc elled via OM: Order cancelled - Patient discharged Performed By: #### L 500.2500, L100.0100 ####[facility] [address] [place], [address] EST GFR - AA Normal >60 [facility] Comment on above: Result Comment: Canc elled via OM: Order cancelled - Patient discharged Performed By: #### L 500.2500, L100.0100 ####[facility] [address] [place], [address] GAP Normal 5-15 [facility] Comment on above: Result Comment: Canc elled via OM: Order cancelled - Patient discharged Performed By: #### L 500.2500, L100.0100 ####[facility] [address] [place], [address] GLU Normal 74-106 [facility] Comment on above: Result Comment: Canc elled via OM: Order cancelled - Patient discharged Performed By: #### L 500.2500, L100.0100 ####[facility] [address] [place], [address] Potassium Normal 3.5-5.1 [facility] Comment on above: Result Comment: Canc elled via OM: Order cancelled - Patient discharged Performed By: #### L 500.2500, L100.0100 ####[facility] [address] [place], [address] Basic Metabolic Profile (BMP) Normal 136-145 [facility] Comment on above: Result Comment: Canc elled via OM: Order cancelled - Patient discharged Performed By: #### L 500.2500, L100.0100 ####[facility] [address] [place], [address] CBC W/Diff, Automatedon 02- Absolute Neut Normal 2.0-7.7 [facility] Comment on above: Result Comment: Canc elled via OM: Order cancelled - Patient discharged Performed By: #### L 500.2500, L100.0100 ####[facility] [address] [place], [address] HCT Normal 40-54 [facility] Comment on above: Result Comment: Canc elled via OM: Order cancelled - Patient discharged Performed By: #### L 500.2500, L100.0100 ####[facility] [address] [place], [address] HGB Normal 13.0-16.5 [facility] Comment on above: Result Comment: Canc elled via OM: Order cancelled - Patient discharged Performed By: #### L 500.2500, L100.0100 ####[facility] [address] [place], [address] MCH Normal 27.0-32.0 [facility] Comment on above: Result Comment: Canc elled via OM: Order cancelled - Patient discharged Performed By: #### L 500.2500, L100.0100 ####[facility] [address] [place], [address] MCHC Normal 32-36 [facility] Comment on above: Result Comment: Canc elled via OM: Order cancelled - Patient discharged Performed By: #### L 500.2500, L100.0100 ####[facility] [address] [place], [address] MCV Normal 80-94 [facility] Comment on above: Result Comment: Canc elled via OM: Order cancelled - Patient discharged Performed By: #### L 500.2500, L100.0100 ####[facility] [address] [place], [address] NEUT% Normal 47-70 [facility] Comment on above: Result Comment: Canc elled via OM: Order cancelled - Patient discharged Performed By: #### L 500.2500, L100.0100 ####[facility] [address] [place], [address] PLT Normal 150-450 [facility] Comment on above: Result Comment: Canc elled via OM: Order cancelled - Patient discharged Performed By: #### L 500.2500, L100.0100 ####[facility] [address] [place], [address] RBC Normal 4.6-6.2 [facility] Comment on above: Result Comment: Canc elled via OM: Order cancelled - Patient discharged Performed By: #### L 500.2500, L100.0100 ####[facility] [address] [place], [address] RDW CV Normal 11.6-14.6 [facility] Comment on above: Result Comment: Canc elled via OM: Order cancelled - Patient discharged Performed By: #### L 500.2500, L100.0100 ####[facility] [address] [place], [address] RDW SD Normal 35.1-43.9 [facility] Comment on above: Result Comment: Canc elled via OM: Order cancelled - Patient discharged Performed By: #### L 500.2500, L100.0100 ####[facility] [address] [place], [address] WBC Normal 4.4-11.0 [facility] Comment on above: Result Comment: Canc elled via OM: Order cancelled - Patient discharged Performed By: #### L 500.2500, L100.0100 ####[facility] [address] [place], [address] Basic Metabolic Profile (BMP )on 12-18-2024 BUN Normal 7-18 [facility] Comment on above: Result Comment: Canc elled via OM: Order cancelled - Patient discharged Performed By: #### L 500.2500, L100.0100 ####[facility] [address] [place], [address] BUN/CRE Normal 10-20 [facility] Comment on above: Result Comment: Canc elled via OM: Order cancelled - Patient discharged Performed By: #### L 500.2500, L100.0100 ####[facility] [address] [place], [address] CA,Total Normal 8.5-10.1 [facility] Comment on above: Result Comment: Canc elled via OM: Order cancelled - Patient discharged Performed By: #### L 500.2500, L100.0100 ####[facility] [address] [place], [address] CL Normal 98-107 [facility] Comment on above: Result Comment: Canc elled via OM: Order cancelled - Patient discharged Performed By: #### L 500.2500, L100.0100 ####[facility] [address] [place], [address] CO2 Normal 21.0-32.0 [facility] Comment on above: Result Comment: Canc elled via OM: Order cancelled - Patient discharged Performed By: #### L 500.2500, L100.0100 ####[facility] [address] [place], [address] CREAT,SERUM Normal 0.70-1.30 [facility] Comment on above: Result Comment: Canc elled via OM: Order cancelled - Patient discharged Performed By: #### L 500.2500, L100.0100 ####[facility] [address] [place], [address] EST GFR Normal >60 [facility] Comment on above: Result Comment: Canc elled via OM: Order cancelled - Patient discharged Performed By: #### L 500.2500, L100.0100 ####[facility] [address] [place], [address] EST GFR - AA Normal >60 [facility] Comment on above: Result Comment: Canc elled via OM: Order cancelled - Patient discharged Performed By: #### L 500.2500, L100.0100 ####[facility] [address] [place], [address] GAP Normal 5-15 [facility] Comment on above: Result Comment: Canc elled via OM: Order cancelled - Patient discharged Performed By: #### L 500.2500, L100.0100 ####[facility] [address] [place], [address] GLU Normal 74-106 [facility] Comment on above: Result Comment: Canc elled via OM: Order cancelled - Patient discharged Performed By: #### L 500.2500, L100.0100 ####[facility] [address] [place], [address] Potassium Normal 3.5-5.1 [facility] Comment on above: Result Comment: Canc elled via OM: Order cancelled - Patient discharged Performed By: #### L 500.2500, L100.0100 ####[facility] [address] [place], [address] Basic Metabolic Profile (BMP) Normal 136-145 [facility] Comment on above: Result Comment: Canc elled via OM: Order cancelled - Patient discharged Performed By: #### L 500.2500, L100.0100 ####[facility] [address] [place], [address] CBC W/Diff, Automatedon 02-0 Absolute Neut Normal 2.0-7.7 [facility] Comment on above: Result Comment: Canc elled via OM: Order cancelled - Patient discharged Performed By: #### L 500.2500, L100.0100 ####[facility] [address] [place], [address] HCT Normal 40-54 [facility] Comment on above: Result Comment: Canc elled via OM: Order cancelled - Patient discharged Performed By: #### L 500.2500, L100.0100 ####[facility] [address] [place], [address] HGB Normal 13.0-16.5 [facility] Comment on above: Result Comment: Canc elled via OM: Order cancelled - Patient discharged Performed By: #### L 500.2500, L100.0100 ####[facility] [address] [place], [address] MCH Normal 27.0-32.0 [facility] Comment on above: Result Comment: Canc elled via OM: Order cancelled - Patient discharged Performed By: #### L 500.2500, L100.0100 ####[facility] [address] [place], [address] MCHC Normal 32-36 [facility] Comment on above: Result Comment: Canc elled via OM: Order cancelled - Patient discharged Performed By: #### L 500.2500, L100.0100 ####[facility] [address] [place], [address] MCV Normal 80-94 [facility] Comment on above: Result Comment: Canc elled via OM: Order cancelled - Patient discharged Performed By: #### L 500.2500, L100.0100 ####[facility] [address] [place], [address] NEUT% Normal 47-70 [facility] Comment on above: Result Comment: Canc elled via OM: Order cancelled - Patient discharged Performed By: #### L 500.2500, L100.0100 ####[facility] [address] [place], [address] PLT Normal 150-450 [facility] Comment on above: Result Comment: Canc elled via OM: Order cancelled - Patient discharged Performed By: #### L 500.2500, L100.0100 ####[facility] [address] [place], [address] RBC Normal 4.6-6.2 [facility] Comment on above: Result Comment: Canc elled via OM: Order cancelled - Patient discharged Performed By: #### L 500.2500, L100.0100 ####[facility] [address] [place], [address] RDW CV Normal 11.6-14.6 [facility] Comment on above: Result Comment: Canc elled via OM: Order cancelled - Patient discharged Performed By: #### L 500.2500, L100.0100 ####[facility] [address] [place], [address] RDW SD Normal 35.1-43.9 [facility] Comment on above: Result Comment: Canc elled via OM: Order cancelled - Patient discharged Performed By: #### L 500.2500, L100.0100 ####[facility] [address] [place], [address] WBC Normal 4.4-11.0 [facility] Comment on above: Result Comment: Canc elled via OM: Order cancelled - Patient discharged Performed By: #### L 500.2500, L100.0100 ####[facility] [address] [place], [address] Basic Metabolic Profile (BMP )on 12-17-2024 BUN Normal 7-18 [facility] Comment on above: Result Comment: Canc elled via OM: Order cancelled - Patient discharged Performed By: #### L 100.0100, L500.2500 ####[facility] [address] [place], [address] BUN/CRE Normal 10-20 [facility] Comment on above: Result Comment: Canc elled via OM: Order cancelled - Patient discharged Performed By: #### L 100.0100, L500.2500 ####[facility] [address] [place], [address] CA,Total Normal 8.5-10.1 [facility] Comment on above: Result Comment: Canc elled via OM: Order cancelled - Patient discharged Performed By: #### L 100.0100, L500.2500 ####[facility] [address] [place], [address] CL Normal 98-107 [facility] Comment on above: Result Comment: Canc elled via OM: Order cancelled - Patient discharged Performed By: #### L 100.0100, L500.2500 ####[facility] [address] [place], [address] CO2 Normal 21.0-32.0 [facility] Comment on above: Result Comment: Canc elled via OM: Order cancelled - Patient discharged Performed By: #### L 100.0100, L500.2500 ####[facility] [address] [place], [address] CREAT,SERUM Normal 0.70-1.30 [facility] Comment on above: Result Comment: Canc elled via OM: Order cancelled - Patient discharged Performed By: #### L 100.0100, L500.2500 ####[facility] [address] [place], [address] EST GFR Normal >60 [facility] Comment on above: Result Comment: Canc elled via OM: Order cancelled - Patient discharged Performed By: #### L 100.0100, L500.2500 ####[facility] [address] [place], [address] EST GFR - AA Normal >60 [facility] Comment on above: Result Comment: Canc elled via OM: Order cancelled - Patient discharged Performed By: #### L 100.0100, L500.2500 ####[facility] [address] [place], [address] GAP Normal 5-15 [facility] Comment on above: Result Comment: Canc elled via OM: Order cancelled - Patient discharged Performed By: #### L 100.0100, L500.2500 ####[facility] [address] [place], [address] GLU Normal 74-106 [facility] Comment on above: Result Comment: Canc elled via OM: Order cancelled - Patient discharged Performed By: #### L 100.0100, L500.2500 ####[facility] [address] [place], [address] Potassium Normal 3.5-5.1 [facility] Comment on above: Result Comment: Canc elled via OM: Order cancelled - Patient discharged Performed By: #### L 100.0100, L500.2500 ####[facility] [address] [place], [address] Basic Metabolic Profile (BMP) Normal 136-145 [facility] Comment on above: Result Comment: Canc elled via OM: Order cancelled - Patient discharged Performed By: #### L 100.0100, L500.2500 ####[facility] [address] [place], [address] CBC W/Diff, Automatedon 02-0 -2024 Absolute Neut Normal 2.0-7.7 [facility] Comment on above: Result Comment: Canc elled via OM: Order cancelled - Patient discharged Performed By: #### L 100.0100, L500.2500 ####[facility] [address] [place], [address] HCT Normal 40-54 [facility] Comment on above: Result Comment: Canc elled via OM: Order cancelled - Patient discharged Performed By: #### L 100.0100, L500.2500 ####[facility] [address] [place], [address] HGB Normal 13.0-16.5 [facility] Comment on above: Result Comment: Canc elled via OM: Order cancelled - Patient discharged Performed By: #### L 100.0100, L500.2500 ####[facility] [address] [place], [address] MCH Normal 27.0-32.0 [facility] Comment on above: Result Comment: Canc elled via OM: Order cancelled - Patient discharged Performed By: #### L 100.0100, L500.2500 ####[facility] [address] [place], [address] MCHC Normal 32-36 [facility] Comment on above: Result Comment: Canc elled via OM: Order cancelled - Patient discharged Performed By: #### L 100.0100, L500.2500 ####[facility] [address] [place], [address] MCV Normal 80-94 [facility] Comment on above: Result Comment: Canc elled via OM: Order cancelled - Patient discharged Performed By: #### L 100.0100, L500.2500 ####[facility] [address] [place], [address] NEUT% Normal 47-70 [facility] Comment on above: Result Comment: Canc elled via OM: Order cancelled - Patient discharged Performed By: #### L 100.0100, L500.2500 ####[facility] [address] [place], [address] PLT Normal 150-450 [facility] Comment on above: Result Comment: Canc elled via OM: Order cancelled - Patient discharged Performed By: #### L 100.0100, L500.2500 ####[facility] [address] [place], [address] RBC Normal 4.6-6.2 [facility] Comment on above: Result Comment: Canc elled via OM: Order cancelled - Patient discharged Performed By: #### L 100.0100, L500.2500 ####[facility] [address] [place], [address] RDW CV Normal 11.6-14.6 [facility] Comment on above: Result Comment: Canc elled via OM: Order cancelled - Patient discharged Performed By: #### L 100.0100, L500.2500 ####[facility] [address] [place], [address] RDW SD Normal 35.1-43.9 [facility] Comment on above: Result Comment: Canc elled via OM: Order cancelled - Patient discharged Performed By: #### L 100.0100, L500.2500 ####[facility] [address] [place], [address] WBC Normal 4.4-11.0 [facility] Comment on above: Result Comment: Canc elled via OM: Order cancelled - Patient discharged Performed By: #### L 100.0100, L500.2500 ####[facility] [address] [place], [address] Respiratory Cultureon 2024 RESPC Mixed normal respira tory laure. No Haemophilus, Streptococcus pneumoniae, beta-hemolytic Streptococcus or Staphylococcus aureus isolated. Normal [facility] Comment on above: Performed By: #### M 100.2400, M100.2000 ####[facility] [address] [place], [address] Absolute lymphocyte countOrd ered By: Amber Cat on 12-16-2024 Lymphocytes Auto (Unsp spec) [#/Vol] 0.35 10*3/uL Low 0.83-4.51 [facility] Automated lymphocyte count a s percentage of total leukocytesOrdered By: Amber Cat on 12-16-2024 Lymphocytes/100 WBC Auto (Unsp spec) 5.6 % Low 19-41 [facility] Basic Metabolic Profile (BMP )on 12-16-2024 BUN/CRE 18.0 RATIO Normal 10-20 [facility] Comment on above: Performed By: #### L 100.0100, L500.2500 ####[facility] [address] [place], [address] CA,Total 9.0 mg/dL Normal 8.5-10.1 [facility] Comment on above: Performed By: #### L 100.0100, L500.2500 ####[facility] [address] [place], [address] Chloride [Moles/Vol] 110 mmol/L High 98-107 [facility] Comment on above: Performed By: #### L 100.0100, L500.2500 ####[facility] [address] [place], [address] CO2 [Moles/Vol] 19.0 mmol/L Low 21.0-32.0 [facility] Comment on above: Performed By: #### L 100.0100, L500.2500 ####[facility] [address] [place], [address] Creatinine [Mass/Vol] 1.11 mg/dL Normal 0.70-1.30 [facility] Comment on above: Result Comment: The validity of the calculated GFR GFRAA in patients over70 years has not been determined. Clinical correlation isessential. Performed By: #### L 100.0100, L500.2500 ####[facility] [address] [place], [address] ECRCL 63.94 ml/min Normal [facility] Comment on above: Performed By: #### L 100.0100, L500.2500 ####[facility] [address] [place], [address] EST GFR - AA 84 mL/min Normal >60 [facility] Comment on above: Result Comment: Afri can Trinidadian GFR Calc Performed By: #### L 100.0100, L500.2500 ####[facility] [address] [place], [address] GAP 7 Normal 5-15 [facility] Comment on above: Performed By: #### L 100.0100, L500.2500 ####[facility] [address] [place], [address] GFR/1.73 sq M.predicted among non-blacks MDRD (S/P/Bld) [Vol rate/Area] 69 mL/min/{1.73_m2} Normal >60 [facility] Comment on above: Result Comment: Non- GFR Calc Performed By: #### L 100.0100, L500.2500 ####[facility] [address] [place], [address] Glucose [Mass/Vol] 224 mg/dL High 74-106 [facility] Comment on above: Result Comment: Gluc ose result greater than or equal to 200 mg/dLsuggests DIABETES MELLITUS per A.D.A. criteria. Performed By: #### L 100.0100, L500.2500 ####[facility] [address] [place], [address] Potassium [Moles/Vol] 4.0 mmol/L Normal 3.5-5.1 [facility] Comment on above: Performed By: #### L 100.0100, L500.2500 ####[facility] [address] [place], [address] Sodium [Moles/Vol] 137 mmol/L Normal 136-145 [facility] Comment on above: Performed By: #### L 100.0100, L500.2500 ####[facility] [address] [place], [address] Urea nitrogen [Mass/Vol] 20 mg/dL High 7-18 [facility] Comment on above: Performed By: #### L 100.0100, L500.2500 ####[facility] [address] [place], [address] Basophil percentageOrdered B y: Amber Cat on 12-16-2024 Basophils/100 WBC (Bld) 0.2 % 0-1 [facility] Bedside Glucoseon 12-16-2024 FINGERSTICK GLU 251 mg/dL High 74-106 [facility] Comment on above: Result Comment: EMERALD GEMENT OF PATIENT CARE PER NURSING PROTOCOL Performed By: #### L 501.080 ####[facility] [address] [place], [address] FINGERSTICK GLU 209 mg/dL High 74-106 [facility] Comment on above: Result Comment: EMERALD GEMENT OF PATIENT CARE PER NURSING PROTOCOL Performed By: #### L 501.080 ####[facility] [address] [place], [address] CBC W/Diff, Automatedon Absolute Lymph 0.35 X10 3/uL Low 0.83-4.51 [facility] Comment on above: Performed By: #### L 100.0100, L500.2500 ####[facility] [address] [place], [address] Absolute Neut 5.4 X10 3/uL Normal 2.0-7.7 [facility] Comment on above: Performed By: #### L 100.0100, L500.2500 ####[facility] [address] [place], [address] Basophils/100 WBC (Bld) 0.2 % Normal 0-1 [facility] Comment on above: Performed By: #### L 100.0100, L500.2500 ####[facility] [address] [place], [address] Eosinophils/100 WBC (Bld) 0.0 % Normal 0-5 [facility] Comment on above: Performed By: #### L 100.0100, L500.2500 ####[facility] [address] [place], [address] Erythrocyte distribution width (RBC) [Ratio] 19.4 % High 11.6-14.6 [facility] Comment on above: Performed By: #### L 100.0100, L500.2500 ####[facility] [address] [place], [address] Hematocrit (Bld) [Volume fraction] 34.6 % Low 40-54 [facility] Comment on above: Performed By: #### L 100.0100, L500.2500 ####[facility] [address] [place], [address] Hemoglobin (Bld) [Mass/Vol] 10.9 g/dL Low 13.0-16.5 [facility] Comment on above: Performed By: #### L 100.0100, L500.2500 ####[facility] [address] [place], [address] IG% 2.400 High 0.0-0.9 [facility] Comment on above: Result Comment: IG% - Immature Granulocytes (promyelocytes, myelocytes andmetamyelocytes) > 1% indicates that a LEFT SHIFT is Present. Performed By: #### L 100.0100, L500.2500 ####[facility] [address] [place], [address] Lymphocytes/100 WBC (Bld) 5.6 % Low 19-41 [facility] Comment on above: Performed By: #### L 100.0100, L500.2500 ####[facility] [address] [place], [address] MCH (RBC) [Entitic mass] 22.9 pg Low 27.0-32.0 [facility] Comment on above: Performed By: #### L 100.0100, L500.2500 ####[facility] [address] [place], [address] MCHC (RBC) [Mass/Vol] 31.5 g/dL Low 32-36 [facility] Comment on above: Performed By: #### L 100.0100, L500.2500 ####[facility] [address] [place], [address] MCV (RBC) [Entitic vol] 72.5 fL Low 80-94 [facility] Comment on above: Performed By: #### L 100.0100, L500.2500 ####[facility] [address] [place], [address] Monocytes/100 WBC (Bld) 5.0 % Normal 0-10 [facility] Comment on above: Performed By: #### L 100.0100, L500.2500 ####[facility] [address] [place], [address] Neutrophils/100 WBC (Bld) 86.8 % High 47-70 [facility] Comment on above: Performed By: #### L 100.0100, L500.2500 ####[facility] [address] [place], [address] Nucleated RBC (Bld) [#/Vol] 0 10*3/uL Normal 0-5 [facility] Comment on above: Performed By: #### L 100.0100, L500.2500 ####[facility] [address] [place], [address] Platelet mean volume (Bld) [Entitic vol] 9.3 fL Normal 6.2-12.0 [facility] Comment on above: Performed By: #### L 100.0100, L500.2500 ####[facility] [address] [place], [address] Platelets (Bld) [#/Vol] 203 10*3/uL Normal 150-450 [facility] Comment on above: Performed By: #### L 100.0100, L500.2500 ####[facility] [address] [place], [address] RBC (Bld) [#/Vol] 4.77 10*6/uL Normal 4.6-6.2 [facility] Comment on above: Performed By: #### L 100.0100, L500.2500 ####[facility] [address] [place], [address] RDW SD 50.5 fl High 35.1-43.9 [facility] Comment on above: Performed By: #### L 100.0100, L500.2500 ####[facility] [address] [place], [address] WBC (Bld) [#/Vol] 6.3 10*3/uL Normal 4.4-11.0 [facility] Comment on above: Performed By: #### L 100.0100, L500.2500 ####[facility] [address] [place], [address] Carbon dioxide measurementOr dered By: Amber Cat on 12-16-2024 CO2 [Moles/Vol] 19.0 mmol/L Low 21.0-32.0 [facility] Chloride measurementOrdered By: Amber Cat on 12-16-2024 Chloride [Moles/Vol] 110 mmol/L High 98-107 [facility] Discharge Instructionon 02-0 Discharge Instruction Normal [facility] Eosinophil percentageOrdered By: Amber Cat on 12-16-2024 Eosinophils/100 WBC (Bld) 0.0 % 0-5 [facility] Erythrocyte distribution wid th ratioOrdered By: Amber Cat on 12-16-2024 Erythrocyte distribution width (RBC) [Ratio] 19.4 % High 11.6-14.6 [facility] Erythrocyte distribution wid th standard deviationOrdered By: Amber Cat on 12-16-2024 Erythrocyte distribution width (RBC) [Ratio] 50.5 fl High 35.1-43.9 [facility] Glomerular filtration rate ( GFR) estimationOrdered By: Amber Cat on 12-16-2024 GFR/1.73 sq M.predicted among non-blacks MDRD (S/P/Bld) [Vol rate/Area] 69 mL/min/{1.73_m2} >60 [facility] Glucose measurementOrdered B y: Amber Cat on 12-16-2024 Glucose [Mass/Vol] 224 mg/dL High 74-106 [facility] Glucose measurement at bedsi deOrdered By: Amber Cat on 12-16-2024 Glucose [Mass/Vol] 251 mg/dL High 74-106 [facility] Gram Stainon 12-16-2024 GS Acceptable Specimen? No (>25 Epithelial cells per/lpf) Gram Stain 4+ Gram positive cocci 1+ Gram positive rods 1+ Gram positive cocci in chains 2+ Epithelial cells Normal [facility] Comment on above: Performed By: #### M 100.2400, M100.1999 ####[facility] [address] [place], [address] Hematocrit Auto (Bld) [Volum e fraction]Ordered By: Amber Cat on 12-16-2024 Hematocrit (Bld) [Volume fraction] 34.6 % Low 40-54 [facility] Hemoglobin measurementOrdere d By: Amber Cat on 12-16-2024 Hemoglobin (Bld) [Mass/Vol] 10.9 g/dL Low 13.0-16.5 [facility] Immature granulocytes/100 WB C Auto (Bld)Ordered By: Amber Cat on 12-16-2024 Immature granulocytes/100 WBC (Bld) 2.400 % High 0.0-0.9 [facility] MCV (mean corpuscular volume ) determinationOrdered By: Amber Cat on 12-16-2024 MCV (RBC) [Entitic vol] 72.5 fL Low 80-94 [facility] Mean corpuscular hemoglobin (MCH) determinationOrdered By: Amber Cat on 12-16-2024 MCH (RBC) [Entitic mass] 22.9 pg Low 27.0-32.0 [facility] Monocyte percentageOrdered B y: Amber Cat on 12-16-2024 Monocytes/100 WBC (Bld) 5.0 % 0-10 [facility] Neutrophil percentageOrdered By: Amber Cat on 12-16-2024 Neutrophils/100 WBC (Bld) 86.8 % High 47-70 [facility] Platelet countOrdered By: Marielena Cat on 12-16-2024 Platelets (Bld) [#/Vol] 203 10*3/uL 150-450 [facility] Potassium measurementOrdered By: Amber Cat on 12-16-2024 Potassium [Moles/Vol] 4.0 mmol/L 3.5-5.1 [facility] RBC Auto (Bld) [#/Vol]Ordere d By: Amber Cat on 12-16-2024 RBC (Bld) [#/Vol] 4.77 10*6/uL 4.6-6.2 [facility] Serum or plasma calcium deangelo urement (mass/volume)Ordered By: Amber Cat on 12-16-2024 Calcium [Mass/Vol] 9.0 mg/dL 8.5-10.1 [facility] Serum or plasma creatinine m easurement (mass/volume)Ordered By: Amber Cat on 12-16-2024 Creatinine [Mass/Vol] 1.11 mg/dL 0.70-1.30 [facility] Serum or plasma urea nitroge n measurement (mass/volume)Ordered By: Amber Cat on 12-16-2024 Urea nitrogen [Mass/Vol] 20 mg/dL High 7-18 [facility] Sodium levelOrdered By: Amber Cat on 12-16-2024 Sodium [Moles/Vol] 137 mmol/L 136-145 [facility] White blood cell (WBC) count Ordered By: Amber Cat on 12-16-2024 WBC (Bld) [#/Vol] 6.3 10*3/uL 4.4-11.0 [facility] Bedside Glucoseon 12-15-2024 FINGERSTICK GLU 254 mg/dL High 74-106 [facility] Comment on above: Result Comment: EMERALD STOCK OF PATIENT CARE PER NURSING PROTOCOL Performed By: #### L 501.080 ####[facility] [address] [place], [address] FINGERSTICK GLU 269 mg/dL High 74-106 [facility] Comment on above: Result Comment: EMERALD GEMENT OF PATIENT CARE PER NURSING PROTOCOL Performed By: #### L 501.080 ####[facility] [address] [place], [address] FINGERSTICK GLU 205 mg/dL High 74-106 [facility] Comment on above: Result Comment: EMERALD GEMENT OF PATIENT CARE PER NURSING PROTOCOL Performed By: #### L 501.080 ####[facility] [address] [place], [address] FINGERSTICK GLU 168 mg/dL High 74-106 [facility] Comment on above: Result Comment: EMERALD GEMENT OF PATIENT CARE PER NURSING PROTOCOL Performed By: #### L 501.080 ####[facility] [address] [place], [address] Bilirubin, totalOrdered By: Sayra Fuentes on 12-15-2024 Bilirubin [Mass/Vol] 0.40 mg/dL 0.20-1.00 [facility] CBC W/Diff, Automatedon 02-0 Absolute Lymph 0.50 X10 3/uL Low 0.83-4.51 [facility] Comment on above: Performed By: #### L 500.4050, L501.5200, L100.0100 ####[facility] [address] [place], [address] Absolute Neut 2.6 X10 3/uL Normal 2.0-7.7 [facility] Comment on above: Performed By: #### L 500.4050, L501.5200, L100.0100 ####[facility] [address] [place], [address] Basophils/100 WBC (Bld) 0.9 % Normal 0-1 [facility] Comment on above: Performed By: #### L 500.4050, L501.5200, L100.0100 ####[facility] [address] [place], [address] Eosinophils/100 WBC (Bld) 0.3 % Normal 0-5 [facility] Comment on above: Performed By: #### L 500.4050, L501.5200, L100.0100 ####[facility] [address] [place], [address] Erythrocyte distribution width (RBC) [Ratio] 19.4 % High 11.6-14.6 [facility] Comment on above: Performed By: #### L 500.4050, L501.5200, L100.0100 ####[facility] [address] [place], [address] Hematocrit (Bld) [Volume fraction] 38.8 % Low 40-54 [facility] Comment on above: Performed By: #### L 500.4050, L501.5200, L100.0100 ####[facility] [address] [place], [address] Hemoglobin (Bld) [Mass/Vol] 12.5 g/dL Low 13.0-16.5 [facility] Comment on above: Performed By: #### L 500.4050, L501.5200, L100.0100 ####[facility] [address] [place], [address] IG% 4.000 High 0.0-0.9 [facility] Comment on above: Result Comment: IG% - Immature Granulocytes (promyelocytes, myelocytes andmetamyelocytes) > 1% indicates that a LEFT SHIFT is Present. Performed By: #### L 500.4050, L501.5200, L100.0100 ####[facility] [address] [place], [address] Lymphocytes/100 WBC (Bld) 15.2 % Low 19-41 [facility] Comment on above: Performed By: #### L 500.4050, L501.5200, L100.0100 ####[facility] [address] [place], [address] MCH (RBC) [Entitic mass] 23.1 pg Low 27.0-32.0 [facility] Comment on above: Performed By: #### L 500.4050, L501.5200, L100.0100 ####[facility] [address] [place], [address] MCHC (RBC) [Mass/Vol] 32.2 g/dL Normal 32-36 [facility] Comment on above: Performed By: #### L 500.4050, L501.5200, L100.0100 ####[facility] [address] [place], [address] MCV (RBC) [Entitic vol] 71.7 fL Low 80-94 [facility] Comment on above: Performed By: #### L 500.4050, L501.5200, L100.0100 ####[facility] [address] [place], [address] Monocytes/100 WBC (Bld) 2.1 % Normal 0-10 [facility] Comment on above: Performed By: #### L 500.4050, L501.5200, L100.0100 ####[facility] [address] [place], [address] Neutrophils/100 WBC (Bld) 77.5 % High 47-70 [facility] Comment on above: Performed By: #### L 500.4050, L501.5200, L100.0100 ####[facility] [address] [place], [address] Nucleated RBC (Bld) [#/Vol] 0 10*3/uL Normal 0-5 [facility] Comment on above: Performed By: #### L 500.4050, L501.5200, L100.0100 ####[facility] [address] [place], [address] Platelet mean volume (Bld) [Entitic vol] 9.1 fL Normal 6.2-12.0 [facility] Comment on above: Performed By: #### L 500.4050, L501.5200, L100.0100 ####[facility] [address] [place], [address] Platelets (Bld) [#/Vol] 205 10*3/uL Normal 150-450 [facility] Comment on above: Performed By: #### L 500.4050, L501.5200, L100.0100 ####[facility] [address] [place], [address] RBC (Bld) [#/Vol] 5.41 10*6/uL Normal 4.6-6.2 [facility] Comment on above: Performed By: #### L 500.4050, L501.5200, L100.0100 ####[facility] [address] [place], [address] RDW SD 49.1 fl High 35.1-43.9 [facility] Comment on above: Performed By: #### L 500.4050, L501.5200, L100.0100 ####[facility] [address] [place], [address] WBC (Bld) [#/Vol] 3.3 10*3/uL Low 4.4-11.0 [facility] Comment on above: Performed By: #### L 500.4050, L501.5200, L100.0100 ####[facility] [address] [place], [address] Comprehensive Metabolic Prof ilon 12-15-2024 Albumin [Mass/Vol] 2.8 g/dL Low 3.2-5.0 [facility] Comment on above: Performed By: #### L 500.4050, L501.5200, L100.0100 ####[facility] [address] [place], [address] Albumin/Globulin [Mass ratio] 0.9 {ratio} Normal 0.9-2.4 [facility] Comment on above: Performed By: #### L 500.4050, L501.5200, L100.0100 ####[facility] [address] [place], [address] ALK P 56 U/L Normal 45-117 [facility] Comment on above: Performed By: #### L 500.4050, L501.5200, L100.0100 ####[facility] [address] [place], [address] ALT [Catalytic activity/Vol] 13 U/L Low 16-61 [facility] Comment on above: Performed By: #### L 500.4050, L501.5200, L100.0100 ####[facility] [address] [place], [address] AST [Catalytic activity/Vol] 13 U/L Low 15-37 [facility] Comment on above: Performed By: #### L 500.4050, L501.5200, L100.0100 ####[facility] [address] [place], [address] Bilirubin [Mass/Vol] 0.40 mg/dL Normal 0.20-1.00 [facility] Comment on above: Result Comment: For patients on eltrombopag therapy, use of Dimension [place] TBIL is not recommended. Performed By: #### L 500.4050, L501.5200, L100.0100 ####[facility] [address] [place], [address] BUN/CRE 8.7 RATIO Low 10-20 [facility] Comment on above: Performed By: #### L 500.4050, L501.5200, L100.0100 ####[facility] [address] [place], [address] CA,Total 8.8 mg/dL Normal 8.5-10.1 [facility] Comment on above: Performed By: #### L 500.4050, L501.5200, L100.0100 ####[facility] [address] [place], [address] Chloride [Moles/Vol] 104 mmol/L Normal 98-107 [facility] Comment on above: Performed By: #### L 500.4050, L501.5200, L100.0100 ####[facility] [address] [place], [address] CO2 [Moles/Vol] 15.0 mmol/L Low 21.0-32.0 [facility] Comment on above: Performed By: #### L 500.4050, L501.5200, L100.0100 ####[facility] [address] [place], [address] Creatinine [Mass/Vol] 1.03 mg/dL Normal 0.70-1.30 [facility] Comment on above: Result Comment: The validity of the calculated GFR GFRAA in patients over70 years has not been determined. Clinical correlation isessential. Performed By: #### L 500.4050, L501.5200, L100.0100 ####[facility] [address] [place], [address] ECRCL 70.02 ml/min Normal [facility] Comment on above: Performed By: #### L 500.4050, L501.5200, L100.0100 ####[facility] [address] [place], [address] EST GFR - AA 92 mL/min Normal >60 [facility] Comment on above: Result Comment: Afri can Trinidadian GFR Calc Performed By: #### L 500.4050, L501.5200, L100.0100 ####[facility] [address] [place], [address] GAP 13 Normal 5-15 [facility] Comment on above: Performed By: #### L 500.4050, L501.5200, L100.0100 ####[facility] [address] [place], [address] GFR/1.73 sq M.predicted among non-blacks MDRD (S/P/Bld) [Vol rate/Area] 76 mL/min/{1.73_m2} Normal >60 [facility] Comment on above: Result Comment: Non- GFR Calc Performed By: #### L 500.4050, L501.5200, L100.0100 ####[facility] [address] [place], [address] Globulin (S) [Mass/Vol] 3.1 g/dL Normal 2.2-4.2 [facility] Comment on above: Performed By: #### L 500.4050, L501.5200, L100.0100 ####[facility] [address] [place], [address] Glucose [Mass/Vol] 174 mg/dL High 74-106 [facility] Comment on above: Result Comment: Fast ing Glucose result greater than or equal to 126 mg/dLsuggests DIABETES MELLITUS per A.D.A. criteria. Performed By: #### L 500.4050, L501.5200, L100.0100 ####[facility] [address] [place], [address] Potassium [Moles/Vol] 4.0 mmol/L Normal 3.5-5.1 [facility] Comment on above: Performed By: #### L 500.4050, L501.5200, L100.0100 ####[facility] [address] [place], [address] Sodium [Moles/Vol] 132 mmol/L Low 136-145 [facility] Comment on above: Performed By: #### L 500.4050, L501.5200, L100.0100 ####[facility] [address] [place], [address] T PROT 5.9 g/dL Low 6.4-8.2 [facility] Comment on above: Performed By: #### L 500.4050, L501.5200, L100.0100 ####[facility] [address] [place], [address] Urea nitrogen [Mass/Vol] 9 mg/dL Normal 7-18 [facility] Comment on above: Performed By: #### L 500.4050, L501.5200, L100.0100 ####[facility] [address] [place], [address] Legionella Antigen Urineon 0 12-15-2024 LEGU Normal [facility] Comment on above: Performed By: #### M 300.4500, M300.4600 ####[facility] [address] [place], [address] Magnesiumon 12-15-2024 Magnesium [Mass/Vol] 2.5 mg/dL Normal 1.6-2.6 [facility] Comment on above: Performed By: #### L 500.4050, L501.5200, L100.0100 ####[facility] [address] [place], [address] Magnesium measurementOrdered By: Sayra Fuentes on 12-15-2024 Magnesium [Mass/Vol] 2.5 mg/dL 1.6-2.6 [facility] No Panel InformationOrdered By: Sayra Fuentes on 12-15-2024 13 U/L Low 15-37 [facility] Procalcitoninon 12-15-2024 Procalcitonin 0.16 ng/mL High 0.00-0.09 [facility] Comment on above: Result Comment: A pr [...] obtained. Performed By: #### L 501.5200, L509.7000 ####[facility] [address] [facility] [place], [place], [address] RESPIRATORY PANEL MOLECULARo n 12-15-2024 RP PANEL Normal [facility] Comment on above: Performed By: #### M 100.638 ####[facility] [address] [place], [place], [address] Serum globulin measurementOr dered By: Sayra Fuentes on 12-15-2024 Globulin (S) [Mass/Vol] 3.1 g/dL 2.2-4.2 [facility] Serum or plasma alanine kong otransferase (ALT) measurementOrdered By: Sayra Alfredo 12-15-2024 ALT [Catalytic activity/Vol] 13 U/L Low 16-61 [facility] Serum or plasma albumin deangelo urement (mass/volume)Ordered By: Sayra Alfredo 12-15-2024 Albumin [Mass/Vol] 2.8 g/dL Low 3.2-5.0 [facility] Serum or plasma alkaline alie sphatase measurementOrdered By: Sayra Alfredo 12-15-2024 ALP [Catalytic activity/Vol] 56 U/L 45-117 [facility] Serum procalcitonin measurem entOrdered By: Sayra Fuentes on 12-15-2024 Procalcitonin [Mass/Vol] 0.16 ng/mL High 0.00-0.09 [facility] Strep pneumoniae Antig(UR,CS F)on 12-15-2024 STPAG Normal [facility] Comment on above: Performed By: #### M 300.4500, M300.4600 ####[facility] [address] [place], [address] Total proteinOrdered By: Aut kaushik Fuentes on 12-15-2024 Protein [Mass/Vol] 5.9 g/dL Low 6.4-8.2 [facility] 12 Lead EKGon 12-14-2024 12 Lead EKG Normal [facility] Basic Metabolic Profile (BMP )on 12-14-2024 BUN/CRE 8.0 RATIO Low 10-20 [facility] Comment on above: Order Comment: 'TROP ' Serial specimen #1, #2 or #3: 1 Performed By: #### L 501.4020, L500.2500 ####[facility] [address] [place], [address] CA,Total 8.4 mg/dL Low 8.5-10.1 [facility] Comment on above: Order Comment: 'TROP ' Serial specimen #1, #2 or #3: 1 Performed By: #### L 501.4020, L500.2500 ####[facility] [address] [place], [address] Chloride [Moles/Vol] 102 mmol/L Normal 98-107 [facility] Comment on above: Order Comment: 'TROP ' Serial specimen #1, #2 or #3: 1 Performed By: #### L 501.4020, L500.2500 ####[facility] [address] [place], [address] CO2 [Moles/Vol] 19.0 mmol/L Low 21.0-32.0 [facility] Comment on above: Order Comment: 'TROP ' Serial specimen #1, #2 or #3: 1 Performed By: #### L 501.4020, L500.2500 ####[facility] [address] [place], [address] Creatinine [Mass/Vol] 1.00 mg/dL Normal 0.70-1.30 [facility] Comment on above: Order Comment: 'TROP ' Serial specimen #1, #2 or #3: 1 Result Comment: The validity of the calculated GFR GFRAA in patients over70 years has not been determined. Clinical correlation isessential. Performed By: #### L 501.4020, L500.2500 ####[facility] [address] [place], [address] ECRCL 72.58 ml/min Normal [facility] Comment on above: Order Comment: 'TROP ' Serial specimen #1, #2 or #3: 1 Performed By: #### L 501.4020, L500.2500 ####[facility] [address] [place], [address] EST GFR - AA 95 mL/min Normal >60 [facility] Comment on above: Order Comment: 'TROP ' Serial specimen #1, #2 or #3: 1 Result Comment: Afri can Trinid[place] GFR Calc Performed By: #### L 501.4020, L500.2500 ####[facility] [address] [place], [address] GAP 10 Normal 5-15 [facility] Comment on above: Order Comment: 'TROP ' Serial specimen #1, #2 or #3: 1 Performed By: #### L 501.4020, L500.2500 ####[facility] [address] [place], [address] GFR/1.73 sq M.predicted among non-blacks MDRD (S/P/Bld) [Vol rate/Area] 78 mL/min/{1.73_m2} Normal >60 [facility] Comment on above: Order Comment: 'TROP ' Serial specimen #1, #2 or #3: 1 Result Comment: Non- GFR Calc Performed By: #### L 501.4020, L500.2500 ####[facility] [address] [place], [address] Glucose [Mass/Vol] 99 mg/dL Normal 74-106 [facility] Comment on above: Order Comment: 'TROP ' Serial specimen #1, #2 or #3: 1 Performed By: #### L 501.4020, L500.2500 ####[facility] [address] [place], [address] Potassium [Moles/Vol] 3.1 mmol/L Low 3.5-5.1 [facility] Comment on above: Order Comment: 'TROP ' Serial specimen #1, #2 or #3: 1 Performed By: #### L 501.4020, L500.2500 ####[facility] [address] [place], [address] Sodium [Moles/Vol] 130 mmol/L Low 136-145 [facility] Comment on above: Order Comment: 'TROP ' Serial specimen #1, #2 or #3: 1 Performed By: #### L 501.4020, L500.2500 ####[facility] [address] [place], [address] Urea nitrogen [Mass/Vol] 8 mg/dL Normal 7-18 [facility] Comment on above: Order Comment: 'TROP ' Serial specimen #1, #2 or #3: 1 Performed By: #### L 501.4020, L500.2500 ####[facility] [address] [place], [address] Bedside Glucoseon 12-14-2024 FINGERSTICK GLU 118 mg/dL High 74-106 [facility] Comment on above: Result Comment: EMERALD STOCK OF PATIENT CARE PER NURSING PROTOCOL Performed By: #### L 501.080 ####[facility] [address] [place], [address] CBC W/Diff, Automatedon 02-0 -2024 Absolute Neut Normal 2.0-7.7 [facility] Comment on above: Result Comment: Canc elled via OM: Patient Ill Performed By: #### L 100.0100, L500.4050 ####[facility] [address] [place], [address] HCT Normal 40-54 [facility] Comment on above: Result Comment: Canc elled via OM: Patient Ill Performed By: #### L 100.0100, L500.4050 ####[facility] [address] [place], [address] HGB Normal 13.0-16.5 [facility] Comment on above: Result Comment: Canc elled via OM: Patient Ill Performed By: #### L 100.0100, L500.4050 ####[facility] [address] [place], [address] MCH Normal 27.0-32.0 [facility] Comment on above: Result Comment: Canc elled via OM: Patient Ill Performed By: #### L 100.0100, L500.4050 ####[facility] [address] [place], [address] MCHC Normal 32-36 [facility] Comment on above: Result Comment: Canc elled via OM: Patient Ill Performed By: #### L 100.0100, L500.4050 ####[facility] [address] [place], [address] MCV Normal 80-94 [facility] Comment on above: Result Comment: Canc elled via OM: Patient Ill Performed By: #### L 100.0100, L500.4050 ####[facility] [address] [place], [address] NEUT% Normal 47-70 [facility] Comment on above: Result Comment: Canc elled via OM: Patient Ill Performed By: #### L 100.0100, L500.4050 ####[facility] [address] [place], [address] PLT Normal 150-450 [facility] Comment on above: Result Comment: Canc elled via OM: Patient Ill Performed By: #### L 100.0100, L500.4050 ####[facility] [address] [place], [address] RBC Normal 4.6-6.2 [facility] Comment on above: Result Comment: Canc elled via OM: Patient Ill Performed By: #### L 100.0100, L500.4050 ####[facility] [address] [place], [address] RDW CV Normal 11.6-14.6 [facility] Comment on above: Result Comment: Canc elled via OM: Patient Ill Performed By: #### L 100.0100, L500.4050 ####[facility] [address] [place], [address] RDW SD Normal 35.1-43.9 [facility] Comment on above: Result Comment: Canc elled via OM: Patient Ill Performed By: #### L 100.0100, L500.4050 ####[facility] [address] [place], [address] WBC Normal 4.4-11.0 [facility] Comment on above: Result Comment: Canc elled via OM: Patient Ill Performed By: #### L 100.0100, L500.4050 ####[facility] [address] [place], [address] Chest 1 View (Portable)on Chest 1 View (Portable) Normal [facility] Comprehensive Metabolic Prof ilon 12-14-2024 ALB Normal 3.2-5.0 [facility] Comment on above: Result Comment: Canc elled via OM: Patient Ill Performed By: #### L 100.0100, L500.4050 ####[facility] [address] [place], [address] ALK P Normal 45-117 [facility] Comment on above: Result Comment: Canc elled via OM: Patient Ill Performed By: #### L 100.0100, L500.4050 ####[facility] [address] [place], [address] ALT Normal 16-61 [facility] Comment on above: Result Comment: Canc elled via OM: Patient Ill Performed By: #### L 100.0100, L500.4050 ####[facility] [address] [place], [address] AST Normal 15-37 [facility] Comment on above: Result Comment: Canc elled via OM: Patient Ill Performed By: #### L 100.0100, L500.4050 ####[facility] [address] [place], [address] BUN Normal 7-18 [facility] Comment on above: Result Comment: Canc elled via OM: Patient Ill Performed By: #### L 100.0100, L500.4050 ####[facility] [address] [place], [address] BUN/CRE Normal 10-20 [facility] Comment on above: Result Comment: Canc elled via OM: Patient Ill Performed By: #### L 100.0100, L500.4050 ####[facility] [address] [place], [address] CA,Total Normal 8.5-10.1 [facility] Comment on above: Result Comment: Canc elled via OM: Patient Ill Performed By: #### L 100.0100, L500.4050 ####[facility] [address] [place], [address] CL Normal 98-107 [facility] Comment on above: Result Comment: Canc elled via OM: Patient Ill Performed By: #### L 100.0100, L500.4050 ####[facility] [address] [place], [address] CO2 Normal 21.0-32.0 [facility] Comment on above: Result Comment: Canc elled via OM: Patient Ill Performed By: #### L 100.0100, L500.4050 ####[facility] [address] [place], [address] CREAT,SERUM Normal 0.70-1.30 [facility] Comment on above: Result Comment: Canc elled via OM: Patient Ill Performed By: #### L 100.0100, L500.4050 ####[facility] [address] [place], [address] EST GFR Normal >60 [facility] Comment on above: Result Comment: Canc elled via OM: Patient Ill Performed By: #### L 100.0100, L500.4050 ####[facility] [address] [place], [address] EST GFR - AA Normal >60 [facility] Comment on above: Result Comment: Canc elled via OM: Patient Ill Performed By: #### L 100.0100, L500.4050 ####[facility] [address] [place], [address] GAP Normal 5-15 [facility] Comment on above: Result Comment: Canc elled via OM: Patient Ill Performed By: #### L 100.0100, L500.4050 ####[facility] [address] [place], [address] GLU Normal 74-106 [facility] Comment on above: Result Comment: Canc elled via OM: Patient Ill Performed By: #### L 100.0100, L500.4050 ####[facility] [address] [place], [address] Potassium Normal 3.5-5.1 [facility] Comment on above: Result Comment: Canc elled via OM: Patient Ill Performed By: #### L 100.0100, L500.4050 ####[facility] [address] [place], [address] T BILI Normal 0.20-1.00 [facility] Comment on above: Result Comment: Canc elled via OM: Patient Ill Performed By: #### L 100.0100, L500.4050 ####[facility] [address] [place], [address] T PROT Normal 6.4-8.2 [facility] Comment on above: Result Comment: Canc elled via OM: Patient Ill Performed By: #### L 100.0100, L500.4050 ####[facility] [address] [place], [address] Comprehensive Metabolic Profil Normal 136-145 [facility] Comment on above: Result Comment: Canc elled via OM: Patient Ill Performed By: #### L 100.0100, L500.4050 ####[facility] [address] [place], [address] Emergency Department Summary on 12-14-2024 Emergency Department Summary Normal [facility] Gram stainOrdered By: Sayra White on 12-14-2024 Microscopic observation Gram stain Nom (Unsp spec) [facility] H AND P Exam - Hospitaliston 12-14-2024 H&P Exam - Hospitalist Normal [facility] Influenza virus A and B and SARS-CoV-2 (COVID-19) and Respiratory syncytial virus RNAOrdered By: Mahesh Menon on 12-14-2024 SARS-CoV-2 (COVID-19) RNA DAVID+probe Ql (Unsp spec) [facility] L501.4020on 12-14-2024 TROPONIN-I HS 7 pg/mL Normal 3.0-78.0 [facility] Comment on above: Order Comment: 'TROP ' Serial specimen #1, #2 or #3: 1 Result Comment: Celina parker Note: New Test Units and Gender Specific Reference Ranges. For more information see Policy Stat Procedure [place] High Sensitivity Troponin (TNIH) and attachments. Performed By: #### L 501.4020, L500.2500 ####[facility] [address] [place], [address] M100.678on 12-14-2024 M100.678 Pending SARS-CoV-2 (COVID 19) Negative INFLUENZA A Negative INFLUENZA B Negative RSV PCR Negative Normal [facility] Comment on above: Performed By: #### M 100.678 ####[facility] [address] [place], [address] Magnesiumon 12-14-2024 Magnesium [Mass/Vol] 1.5 mg/dL Low 1.6-2.6 [facility] Comment on above: Order Comment: Comme nts: may add to ED labs Performed By: #### L 501.5200, L509.7000 ####[facility] [address] [place], [address] Microbial respiratory cultur eOrdered By: Sayra Fuentes on 12-14-2024 Microorganism identified Cx Nom (Unsp spec) [facility] Respiratory pathogens detect ion panel by molecular detection methodOrdered By: Sayra Fuentes on 12-14-2024 Respiratory pathogens DNA and RNA panel DAVID+probe (Resp) [facility] Troponin IOrdered By: Mahesh webb on 12-14-2024 Troponin I 7 pg/mL 3.0-78.0 [facility] Urine Legionella pneumophila antigen detectionOrdered By: Sayra Fuentes on 12-14-2024 L. pneumophila Ag Ql (U) [facility] 36on 12-12-2024 36 Being addressed in another encounter [place] [address] Chambers s office and they will be faxing over this recent report, [place] [address] Name of caller: Sari tee Contact phone number: [phone] Relationship to Patient: Ezel gastro Provider: DO Dick Practice: [facility] FP Chief Complaint/Reason for Call: Nessa would like a call to discuss patients information Best time of day caller can be reached: PM Patient advised that office/PCP has 24-48 business hours to return their call: Yes [facility] [address] Smart office to return call to the office. [facility] 36 Spoke with patient jeanine chowdary and she said they just found out he has 2 small lesions on his bowels and she is not happy with that gastro Dr Friend they want [place] to go [place] and she said she can't drive to [place] , that she wants him referred back to Dr Osei in [place] and wants your opinion on this she says she is also waiting on a call back from his cancer doctor as well. [facility] 36 S: The is raulito ng the [facility] about a fever despite antibiotics. B: He [...] Protocols used: Sinus Infection on Antibiotic Follow-up [id number] [facility] CBC W/Diff, Automatedon 11-10 Absolute Neut Normal 2.0-7.7 [facility] Comment on above: Result Comment: PT C ANCELLED FOR THE DAY PER SCHEDULE Performed By: #### L 100.0100, L500.4050 ####[facility] [address] [place], [address] HCT Normal 40-54 [facility] Comment on above: Result Comment: PT C ANCELLED FOR THE DAY PER SCHEDULE Performed By: #### L 100.0100, L500.4050 ####[facility] [address] [place], [address] HGB Normal 13.0-16.5 [facility] Comment on above: Result Comment: PT C ANCELLED FOR THE DAY PER SCHEDULE Performed By: #### L 100.0100, L500.4050 ####[facility] [address] [place], [address] MCH Normal 27.0-32.0 [facility] Comment on above: Result Comment: PT C ANCELLED FOR THE DAY PER SCHEDULE Performed By: #### L 100.0100, L500.4050 ####[facility] [address] [place], [address] MCHC Normal 32-36 [facility] Comment on above: Result Comment: PT C ANCELLED FOR THE DAY PER SCHEDULE Performed By: #### L 100.0100, L500.4050 ####[facility] [address] [place], [address] MCV Normal 80-94 [facility] Comment on above: Result Comment: PT C ANCELLED FOR THE DAY PER SCHEDULE Performed By: #### L 100.0100, L500.4050 ####[facility] [address] [place], [address] NEUT% Normal 47-70 [facility] Comment on above: Result Comment: PT C ANCELLED FOR THE DAY PER SCHEDULE Performed By: #### L 100.0100, L500.4050 ####[facility] [address] [place], [address] PLT Normal 150-450 [facility] Comment on above: Result Comment: PT C ANCELLED FOR THE DAY PER SCHEDULE Performed By: #### L 100.0100, L500.4050 ####[facility] [address] [place], [address] RBC Normal 4.6-6.2 [facility] Comment on above: Result Comment: PT C ANCELLED FOR THE DAY PER SCHEDULE Performed By: #### L 100.0100, L500.4050 ####[facility] [address] [place], [address] RDW CV Normal 11.6-14.6 [facility] Comment on above: Result Comment: PT C ANCELLED FOR THE DAY PER SCHEDULE Performed By: #### L 100.0100, L500.4050 ####[facility] [address] [place], [address] RDW SD Normal 35.1-43.9 [facility] Comment on above: Result Comment: PT C ANCELLED FOR THE DAY PER SCHEDULE Performed By: #### L 100.0100, L500.4050 ####[facility] [address] [place], [address] WBC Normal 4.4-11.0 [facility] Comment on above: Result Comment: PT C ANCELLED FOR THE DAY PER SCHEDULE Performed By: #### L 100.0100, L500.4050 ####[facility] [address] [place], [address] Comprehensive Metabolic Prof ilon 12-07-2024 ALB Normal 3.2-5.0 [facility] Comment on above: Result Comment: PT C ANCELLED FOR THE DAY PER SCHEDULE Performed By: #### L 100.0100, L500.4050 ####[facility] [address] [place], [address] ALK P Normal 45-117 [facility] Comment on above: Result Comment: PT C ANCELLED FOR THE DAY PER SCHEDULE Performed By: #### L 100.0100, L500.4050 ####[facility] [address] [place], [address] ALT Normal 16-61 [facility] Comment on above: Result Comment: PT C ANCELLED FOR THE DAY PER SCHEDULE Performed By: #### L 100.0100, L500.4050 ####[facility] [address] [place], [address] AST Normal 15-37 [facility] Comment on above: Result Comment: PT C ANCELLED FOR THE DAY PER SCHEDULE Performed By: #### L 100.0100, L500.4050 ####[facility] [address] [place], [address] BUN Normal 7-18 [facility] Comment on above: Result Comment: PT C ANCELLED FOR THE DAY PER SCHEDULE Performed By: #### L 100.0100, L500.4050 ####[facility] [address] [place], [address] BUN/CRE Normal 10-20 [facility] Comment on above: Result Comment: PT C ANCELLED FOR THE DAY PER SCHEDULE Performed By: #### L 100.0100, L500.4050 ####[facility] [address] [place], [address] CA,Total Normal 8.5-10.1 [facility] Comment on above: Result Comment: PT C ANCELLED FOR THE DAY PER SCHEDULE Performed By: #### L 100.0100, L500.4050 ####[facility] [address] [place], [address] CL Normal 98-107 [facility] Comment on above: Result Comment: PT C ANCELLED FOR THE DAY PER SCHEDULE Performed By: #### L 100.0100, L500.4050 ####[facility] [address] [place], [address] CO2 Normal 21.0-32.0 [facility] Comment on above: Result Comment: PT C ANCELLED FOR THE DAY PER SCHEDULE Performed By: #### L 100.0100, L500.4050 ####[facility] [address] [place], [address] CREAT,SERUM Normal 0.70-1.30 [facility] Comment on above: Result Comment: PT C ANCELLED FOR THE DAY PER SCHEDULE Performed By: #### L 100.0100, L500.4050 ####[facility] [address] [place], [address] EST GFR Normal >60 [facility] Comment on above: Result Comment: PT C ANCELLED FOR THE DAY PER SCHEDULE Performed By: #### L 100.0100, L500.4050 ####[facility] [address] [place], [address] EST GFR - AA Normal >60 [facility] Comment on above: Result Comment: PT C ANCELLED FOR THE DAY PER SCHEDULE Performed By: #### L 100.0100, L500.4050 ####[facility] [address] [place], [address] GAP Normal 5-15 [facility] Comment on above: Result Comment: PT C ANCELLED FOR THE DAY PER SCHEDULE Performed By: #### L 100.0100, L500.4050 ####[facility] [address] [place], [address] GLU Normal 74-106 [facility] Comment on above: Result Comment: PT C ANCELLED FOR THE DAY PER SCHEDULE Performed By: #### L 100.0100, L500.4050 ####[facility] [address] [place], [address] Potassium Normal 3.5-5.1 [facility] Comment on above: Result Comment: PT C ANCELLED FOR THE DAY PER SCHEDULE Performed By: #### L 100.0100, L500.4050 ####[facility] [address] [place], [address] T BILI Normal 0.20-1.00 [facility] Comment on above: Result Comment: PT C ANCELLED FOR THE DAY PER SCHEDULE Performed By: #### L 100.0100, L500.4050 ####[facility] [address] [place], [address] T PROT Normal 6.4-8.2 [facility] Comment on above: Result Comment: PT C ANCELLED FOR THE DAY PER SCHEDULE Performed By: #### L 100.0100, L500.4050 ####[facility] [address] [place], [address] Comprehensive Metabolic Profil Normal 136-145 [facility] Comment on above: Result Comment: PT C ANCELLED FOR THE DAY PER SCHEDULE Performed By: #### L 100.0100, L500.4050 ####[facility] [address] [place], [address] 36on 12-06-2024 36 S: Patient's nanci guadalupe with [facility] nurse regarding sinusitis. B: Onset of symptoms/concern: today A: Patient not present at time of call, Hayile states he still has a fever of 102 (TA), sinus issues, congestion, got antibiotics last Thursday from urgent care on Thursday but it's not helping, requests same day. R: Same day [place] [address] Jennings, insurance coverage verified. Reason for Disposition Taking antibiotic > 48 hours (2 days) and fever persists Protocols used: Sinus Infection on Antibiotic [facility] 12-[facility]24 Follow-up visit [id number] Mirna Arshad 1955 M Date Provider Department Center 12/06/2024 [id number] BOLES [facility] Family History Problem Relation Age of Onset Coronary artery disease Mother Comments: CABG Coronary artery disease Sister Comments: CABG Stroke Mother Comments: age 77 Lung cancer Mother No Known Problems Sister No Known Problems Brother No Known Problems Sister No Known Problems Sister Diabetes Sister Coronary artery disease Father Comments: age 50 [place] - smoker Coronary artery disease Brother Comments: age 47 [place] Family Status - Relation Status Age at Mother 77 Sister Alive Sister Alive Brother Alive Sister Alive Sister Alive Father 50 Brother 47 Level of Service:74637 DE OFFICE/OUTPATIENT ESTABLISHED LOW MDM 20 MIN Reason for Visit and Comments: Nasal Congestion [155555] - Coughing up green and brown mucus Head congestion Diarrhea [35] Other [0] - Seen at Urgent Care Thursday, Flu and COVID test both NEGATIVE Normal [facility] Progress Noteon 12-06-2024 Progress Note [facility] - [address] [facility] [address] Visit type: Established Patient Reason [...] routine checkup and lab work. Did see handle lathe operator who confirmed he thinks the rash is [...] mL nebulizer solution Inhale 3 mL. Lancets (Reef Point SystemsTouch Delica Plus Frlygx02A) misc nitroglycerin (Nitrostat) 0.[address] 1 tablet (0.4 mg) under the tongue every 5 minutes as needed for chest pain. 90 tablet 0 omeprazole (PriLOSEC) [address] capsule Take 1 capsule (20 mg) by mouth Daily as needed (reflux). 90 capsule 1 Reef Point SystemsTouch Ultra test strip pembrolizumab (Keytruda) 100 MG/4ML [...] Use Topics Alco (more content not included)... [facility] 36on 12-05-2024 36 Medication name: [...] prior to picking up the medication: Yes [facility] No Panel Informationon 12-02 Negative [facility] Negative [facility] Urgent Care Visit Reporton 0 12-02-2024 Urgent Care Visit Report Normal [facility] 36on 12-01-2024 36 Noted. Normal [facility] 36 Reason for Dispositi on ? Caller has already spoken with another triager and has no further questions Protocols used: No Contact or Duplicate Contact Qtth-QCLRH-GE [facility] 36 S: spoke with C nurse regarding hives B: Onset of symptoms/concern 3 days ago Decadron 1/4 of 0.5mg A: states Cancer Dr Acevedo at [facility] hs been lowering his Decadron dose [...] (e.g., prednisone) > 24 hours Protocols used: Xeftp-OFBJP-MM Normal [facility] CBC W/Diff, Automatedon 11-10 Absolute Neut Normal 2.0-7.7 [facility] Comment on above: Result Comment: PT N OT SCHEDULED TODAY PER [facility] NURSE Performed By: #### L 500.4050, L100.0100 ####[facility] [address] [place], [place], [address] HCT Normal 40-54 [facility] Comment on above: Result Comment: PT N OT SCHEDULED TODAY PER [facility] NURSE Performed By: #### L 500.4050, L100.0100 ####[facility] [address] [place], [address] HGB Normal 13.0-16.5 [facility] Comment on above: Result Comment: PT N OT SCHEDULED TODAY PER [facility] NURSE Performed By: #### L 500.4050, L100.0100 ####[facility] [address] [place], [address] MCH Normal 27.0-32.0 [facility] Comment on above: Result Comment: PT N OT SCHEDULED TODAY PER [facility] NURSE Performed By: #### L 500.4050, L100.0100 ####[facility] [address] [place], [address] MCHC Normal 32-36 [facility] Comment on above: Result Comment: PT N OT SCHEDULED TODAY PER [facility] NURSE Performed By: #### L 500.4050, L100.0100 ####[facility] [address] [place], [address] MCV Normal 80-94 [facility] Comment on above: Result Comment: PT N OT SCHEDULED TODAY PER [facility] NURSE Performed By: #### L 500.4050, L100.0100 ####[facility] [address] [place], [address] NEUT% Normal 47-70 [facility] Comment on above: Result Comment: PT N OT SCHEDULED TODAY PER [facility] NURSE Performed By: #### L 500.4050, L100.0100 ####[facility] [address] [place], [address] PLT Normal 150-450 [facility] Comment on above: Result Comment: PT N OT SCHEDULED TODAY PER [facility] NURSE Performed By: #### L 500.4050, L100.0100 ####[facility] [address] [place], [address] RBC Normal 4.6-6.2 [facility] Comment on above: Result Comment: PT N OT SCHEDULED TODAY PER [facility] NURSE Performed By: #### L 500.4050, L100.0100 ####[facility] [address] [place], [address] RDW CV Normal 11.6-14.6 [facility] Comment on above: Result Comment: PT N OT SCHEDULED TODAY PER [facility] NURSE Performed By: #### L 500.4050, L100.0100 ####[facility] [address] [place], [address] RDW SD Normal 35.1-43.9 [facility] Comment on above: Result Comment: PT N OT SCHEDULED TODAY PER [facility] NURSE Performed By: #### L 500.4050, L100.0100 ####[facility] [address] [place], [address] WBC Normal 4.4-11.0 [facility] Comment on above: Result Comment: PT N OT SCHEDULED TODAY PER [facility] NURSE Performed By: #### L 500.4050, L100.0100 ####[facility] [address] [place], [address] Comprehensive Metabolic Prof ilon 11-29-2024 ALB Normal 3.2-5.0 [facility] Comment on above: Result Comment: PT N OT SCHEDULED TODAY PER [facility] NURSE Performed By: #### L 500.4050, L100.0100 ####[facility] [address] [place], [address] ALK P Normal 45-117 [facility] Comment on above: Result Comment: PT N OT SCHEDULED TODAY PER [facility] NURSE Performed By: #### L 500.4050, L100.0100 ####[facility] [address] [place], [address] ALT Normal 16-61 [facility] Comment on above: Result Comment: PT N OT SCHEDULED TODAY PER [facility] NURSE Performed By: #### L 500.4050, L100.0100 ####[facility] [address] [place], [address] AST Normal 15-37 [facility] Comment on above: Result Comment: PT N OT SCHEDULED TODAY PER [facility] NURSE Performed By: #### L 500.4050, L100.0100 ####[facility] [address] [place], [address] BUN Normal 7-18 [facility] Comment on above: Result Comment: PT N OT SCHEDULED TODAY PER [facility] NURSE Performed By: #### L 500.4050, L100.0100 ####[facility] [address] [place], [address] BUN/CRE Normal 10-20 [facility] Comment on above: Result Comment: PT N OT SCHEDULED TODAY PER [facility] NURSE Performed By: #### L 500.4050, L100.0100 ####[facility] [address] [place], [address] CA,Total Normal 8.5-10.1 [facility] Comment on above: Result Comment: PT N OT SCHEDULED TODAY PER [facility] NURSE Performed By: #### L 500.4050, L100.0100 ####[facility] [address] [place], [address] CL Normal 98-107 [facility] Comment on above: Result Comment: PT N OT SCHEDULED TODAY PER [facility] NURSE Performed By: #### L 500.4050, L100.0100 ####[facility] [address] [place], [address] CO2 Normal 21.0-32.0 [facility] Comment on above: Result Comment: PT N OT SCHEDULED TODAY PER [facility] NURSE Performed By: #### L 500.4050, L100.0100 ####[facility] [address] [place], [address] CREAT,SERUM Normal 0.70-1.30 [facility] Comment on above: Result Comment: PT N OT SCHEDULED TODAY PER [facility] NURSE Performed By: #### L 500.4050, L100.0100 ####[facility] [address] [place], [address] EST GFR Normal >60 [facility] Comment on above: Result Comment: PT N OT SCHEDULED TODAY PER [facility] NURSE Performed By: #### L 500.4050, L100.0100 ####[facility] [address] [place], [address] EST GFR - AA Normal >60 [facility] Comment on above: Result Comment: PT N OT SCHEDULED TODAY PER [facility] NURSE Performed By: #### L 500.4050, L100.0100 ####[facility] [address] [place], [address] GAP Normal 5-15 [facility] Comment on above: Result Comment: PT N OT SCHEDULED TODAY PER [facility] NURSE Performed By: #### L 500.4050, L100.0100 ####[facility] [address] [place], [address] GLU Normal 74-106 [facility] Comment on above: Result Comment: PT N OT SCHEDULED TODAY PER [facility] NURSE Performed By: #### L 500.4050, L100.0100 ####[facility] [address] [place], [address] Potassium Normal 3.5-5.1 [facility] Comment on above: Result Comment: PT N OT SCHEDULED TODAY PER [facility] NURSE Performed By: #### L 500.4050, L100.0100 ####[facility] [address] [place], [address] T BILI Normal 0.20-1.00 [facility] Comment on above: Result Comment: PT N OT SCHEDULED TODAY PER [facility] NURSE Performed By: #### L 500.4050, L100.0100 ####[facility] [address] [place], [address] T PROT Normal 6.4-8.2 [facility] Comment on above: Result Comment: PT N OT SCHEDULED TODAY PER [facility] NURSE Performed By: #### L 500.4050, L100.0100 ####[facility] [address] [place], [address] Comprehensive Metabolic Profil Normal 136-145 [facility] Comment on above: Result Comment: PT N OT SCHEDULED TODAY PER [facility] NURSE Performed By: #### L 500.4050, L100.0100 ####[facility] [address] [place], [address] Office Visit Reporton 2024 Office Visit Report Normal [facility] CNPNon 11-21-2024 CNPN Telephone (NEAGCLM) ----- KENN ARSHAD SR. ([id number]) 1955 M Date Time Provider Department 11/21/24 [...] Encounter Status:Closed by SAMUEL CASTILLO on 11/21/24 [facility] Dayne 11-18-2024 CNOV Office Visit (NEAGCL M) ----- KENN ARSHAD SR. ([id number]) 1955 M Date Time Provider Department 11/18/24 [...] Age: [age] year old Sex: male MRN/E# [id number] Last Office Visit: 10/18/2024 CHIEF COMPLAINT: Patient [...] SRS (SBRT) to the metastatic lesion at [place]. Two months following treatment MRI was completed [...] symptoms so (more content not included)... Normal [facility] Gastroenterology Visit Repor ton 11-17-2024 Gastroenterology Visit Report Normal [facility] MR Brain WO and W contrast I Von 11-11-2024 IMPRESSION: Redemonstrated left periatrial metastatic focus, appearing smaller since 05/17/2024. No new lesions identified. Trust Officer: FLAVIO Transcribe Date/Time: Nov 11 2024 12:03P Dictated by : VIKA DON MD This examination was interpreted and the report reviewed and electronically signed by: VIKA DON MD on Nov 11 2024 12:37PM [facility] DIVISION OF RADIOLOGY * * *Final Report* * * DATE OF EXAM: Nov 11 2024 11:30AM [facility] 0295 - MRI BRAIN WO/W IVCON / PROCEDURE REASON: multiple diagnoses * * * * Physician Interpretation * * * * EXAMINATION: MRI BRAIN WO/W IVCON HISTORY: Metastatic cancer to brain (HCC) Secondary malignant neoplasm of brain (HCC) - - - Radiation necrosis/pseudoprogressio n - Brain metastases, monitor - [id number] - - FOLLOW UP TP PREVIOUS - [...] tissues are unremarkable. DIVISION OF RADIOLOGY Provider, [facility] - 11/11/2024 * * *Final Report* * * DATE OF EXAM: Nov 11 2024 11:30AM [facility] 0295 - MRI BRAIN WO/W IVCON / PROCEDURE REASON: multiple diagnoses * * * * Physician Interpretation * * * * EXAMINATION: MRI BRAIN WO/W IVCON HISTORY: Metastatic cancer to brain (HCC) Secondary malignant neoplasm of brain (HCC) - - - Radiation necrosis/pseudoprogressio n - Brain metastases, monitor - [id number] - - FOLLOW UP TP PREVIOUS - [...] smaller since 05/17/2024. No new lesions identified. Trust Officer: [facility] Transcribe Date/Time: Nov 11 2024 12:03P Dictated by : VIKA DON MD This examination was interpreted and the report reviewed and electronically signed by: VIKA DON MD on Nov 11 2024 12:37PM EST [facility] Radiology Study observation (narrative) [facility] MR Brain WO and W contrast I VOrdered By: [facility] Provider on 11-11-2024 [facility] MRI BRAIN WO/W IVCONon 11-11 MRI BRAIN [...] necrosis/pseudoprogressio n - Brain metastases, monitor - [id number] - - FOLLOW UP TP PREVIOUS - [...] smaller since 05/17/2024. No new lesions identified. Trust Officer: [facility] Transcribe Date/Time: Nov 11 2024 12:03P Dictated by : VIKA DON MD This examination was interpreted and the report reviewed and electronically signed by: VIKA DON MD on Nov 11 2024 12:37PM EST [id number] Normal [facility] CBC W/Diff, Automatedon 12-3 Absolute Lymph 0.92 X10 3/uL Normal 0.83-4.51 [facility] Comment on above: Performed By: #### L 100.0100, L501.2300, L500.4050 ####[facility] [address] [place], [address] Absolute Neut 4.7 X10 3/uL Normal 2.0-7.7 [facility] Comment on above: Performed By: #### L 100.0100, L501.2300, L500.4050 ####[facility] [address] [place], [address] Basophils/100 WBC (Bld) 0.6 % Normal 0-1 [facility] Comment on above: Performed By: #### L 100.0100, L501.2300, L500.4050 ####[facility] [address] [place], [address] Eosinophils/100 WBC (Bld) 2.1 % Normal 0-5 [facility] Comment on above: Performed By: #### L 100.0100, L501.2300, L500.4050 ####[facility] [address] [place], [address] Erythrocyte distribution width (RBC) [Ratio] 20.0 % High 11.6-14.6 [facility] Comment on above: Performed By: #### L 100.0100, L501.2300, L500.4050 ####[facility] [address] [place], [address] Hematocrit (Bld) [Volume fraction] 38.2 % Low 40-54 [facility] Comment on above: Performed By: #### L 100.0100, L501.2300, L500.4050 ####[facility] [address] [place], [address] Hemoglobin (Bld) [Mass/Vol] 11.6 g/dL Low 13.0-16.5 [facility] Comment on above: Performed By: #### L 100.0100, L501.2300, L500.4050 ####[facility] [address] [place], [address] IG% 1.700 High 0.0-0.9 [facility] Comment on above: Result Comment: IG% - Immature Granulocytes (promyelocytes, myelocytes andmetamyelocytes) > 1% indicates that a LEFT SHIFT is Present. Performed By: #### L 100.0100, L501.2300, L500.4050 ####[facility] [address] [place], [address] Lymphocytes/100 WBC (Bld) 13.9 % Low 19-41 [facility] Comment on above: Performed By: #### L 100.0100, L501.2300, L500.4050 ####[facility] [address] [place], [address] MCH (RBC) [Entitic mass] 22.4 pg Low 27.0-32.0 [facility] Comment on above: Performed By: #### L 100.0100, L501.2300, L500.4050 ####[facility] [address] [place], [address] MCHC (RBC) [Mass/Vol] 30.4 g/dL Low 32-36 [facility] Comment on above: Performed By: #### L 100.0100, L501.2300, L500.4050 ####[facility] [address] [place], [address] MCV (RBC) [Entitic vol] 73.6 fL Low 80-94 [facility] Comment on above: Performed By: #### L 100.0100, L501.2300, L500.4050 ####[facility] [address] [place], [address] Monocytes/100 WBC (Bld) 10.1 % High 0-10 [facility] Comment on above: Performed By: #### L 100.0100, L501.2300, L500.4050 ####[facility] [address] [place], [address] Neutrophils/100 WBC (Bld) 71.6 % High 47-70 [facility] Comment on above: Performed By: #### L 100.0100, L501.2300, L500.4050 ####[facility] [address] [place], [address] Nucleated RBC (Bld) [#/Vol] 0 10*3/uL Normal 0-5 [facility] Comment on above: Performed By: #### L 100.0100, L501.2300, L500.4050 ####[facility] [address] [place], [address] Platelet mean volume (Bld) [Entitic vol] 9.3 fL Normal 6.2-12.0 [facility] Comment on above: Performed By: #### L 100.0100, L501.2300, L500.4050 ####[facility] [address] [place], [address] Platelets (Bld) [#/Vol] 166 10*3/uL Normal 150-450 [facility] Comment on above: Performed By: #### L 100.0100, L501.2300, L500.4050 ####[facility] [address] [place], [address] RBC (Bld) [#/Vol] 5.19 10*6/uL Normal 4.6-6.2 [facility] Comment on above: Performed By: #### L 100.0100, L501.2300, L500.4050 ####[facility] [address] [place], [address] RDW SD 51.6 fl High 35.1-43.9 [facility] Comment on above: Performed By: #### L 100.0100, L501.2300, L500.4050 ####[facility] [address] [place], [address] WBC (Bld) [#/Vol] 6.6 10*3/uL Normal 4.4-11.0 [facility] Comment on above: Performed By: #### L 100.0100, L501.2300, L500.4050 ####[facility] [address] [place], [address] Comprehensive Metabolic [facility] 11-08-2024 Albumin [Mass/Vol] 3.2 g/dL Normal 3.2-5.0 [facility] Comment on above: Performed By: #### L 100.0100, L501.2300, L500.4050 ####[facility] [address] [place], [address] Albumin/Globulin [Mass ratio] 1.0 {ratio} Normal 0.9-2.4 [facility] Comment on above: Performed By: #### L 100.0100, L501.2300, L500.4050 ####[facility] [address] [place], [address] ALK P 70 U/L Normal 45-117 [facility] Comment on above: Performed By: #### L 100.0100, L501.2300, L500.4050 ####[facility] [address] [place], [address] ALT [Catalytic activity/Vol] 22 U/L Normal 16-61 [facility] Comment on above: Performed By: #### L 100.0100, L501.2300, L500.4050 ####[facility] [address] [place], [address] AST [Catalytic activity/Vol] 12 U/L Low 15-37 [facility] Comment on above: Performed By: #### L 100.0100, L501.2300, L500.4050 ####[facility] [address] [place], [address] Bilirubin [Mass/Vol] 0.40 mg/dL Normal 0.20-1.00 [facility] Comment on above: Result Comment: For patients on eltrombopag therapy, use of Dimension [place] TBIL is not recommended. Performed By: #### L 100.0100, L501.2300, L500.4050 ####[facility] [address] [place], [address] BUN/CRE 18.0 RATIO Normal 10-20 [facility] Comment on above: Performed By: #### L 100.0100, L501.2300, L500.4050 ####[facility] [address] [place], [address] CA,Total 8.6 mg/dL Normal 8.5-10.1 [facility] Comment on above: Performed By: #### L 100.0100, L501.2300, L500.4050 ####[facility] [address] [place], [address] Chloride [Moles/Vol] 111 mmol/L High 98-107 [facility] Comment on above: Performed By: #### L 100.0100, L501.2300, L500.4050 ####[facility] [address] [place], [address] CO2 [Moles/Vol] 23.0 mmol/L Normal 21.0-32.0 [facility] Comment on above: Performed By: #### L 100.0100, L501.2300, L500.4050 ####[facility] [address] [place], [address] Creatinine [Mass/Vol] 1.22 mg/dL Normal 0.70-1.30 [facility] Comment on above: Result Comment: The validity of the calculated GFR GFRAA in patients over70 years has not been determined. Clinical correlation isessential. Performed By: #### L 100.0100, L501.2300, L500.4050 ####[facility] [address] [place], [address] ECRCL 59.40 ml/min Normal [facility] Comment on above: Performed By: #### L 100.0100, L501.2300, L500.4050 ####[facility] [address] [place], [address] EST GFR - AA 75 mL/min Normal >60 [facility] Comment on above: Result Comment: Afri can Trinidadian GFR Calc Performed By: #### L 100.0100, L501.2300, L500.4050 ####[facility] [address] [place], [address] GAP 7 Normal 5-15 [facility] Comment on above: Performed By: #### L 100.0100, L501.2300, L500.4050 ####[facility] [address] [place], [address] GFR/1.73 sq M.predicted among non-blacks MDRD (S/P/Bld) [Vol rate/Area] 62 mL/min/{1.73_m2} Normal >60 [facility] Comment on above: Result Comment: Non- GFR Calc Performed By: #### L 100.0100, L501.2300, L500.4050 ####[facility] [address] [place], [address] Globulin (S) [Mass/Vol] 3.2 g/dL Normal 2.2-4.2 [facility] Comment on above: Performed By: #### L 100.0100, L501.2300, L500.4050 ####[facility] [address] [place], [address] Glucose [Mass/Vol] 134 mg/dL High 74-106 [facility] Comment on above: Result Comment: Fast ing Glucose result greater than or equal to 126 mg/dLsuggests DIABETES MELLITUS per A.D.A. criteria. Performed By: #### L 100.0100, L501.2300, L500.4050 ####[facility] [address] [place], [address] Potassium [Moles/Vol] 3.8 mmol/L Normal 3.5-5.1 [facility] Comment on above: Performed By: #### L 100.0100, L501.2300, L500.4050 ####[facility] [address] [place], [address] Sodium [Moles/Vol] 141 mmol/L Normal 136-145 [facility] Comment on above: Performed By: #### L 100.0100, L501.2300, L500.4050 ####[facility] [address] [place], [address] T PROT 6.4 g/dL Normal 6.4-8.2 [facility] Comment on above: Performed By: #### L 100.0100, L501.2300, L500.4050 ####[facility] [address] [place], [address] Urea nitrogen [Mass/Vol] 22 mg/dL High 7-18 [facility] Comment on above: Performed By: #### L 100.0100, L501.2300, L500.4050 ####[facility] [address] [place], [address] Magnesiumon 11-08-2024 Magnesium [Mass/Vol] 2.0 mg/dL Normal 1.6-2.6 [facility] Comment on above: Performed By: #### L 501.9520, L506.0400, L501.5200 ####[facility] [address] [place], [address] Oncology Visit Reporton 10-11 Oncology Visit Report Normal [facility] Phosphoruson 11-08-2024 Phosphate [Mass/Vol] 3.4 mg/dL Normal 2.5-4.9 [facility] Comment on above: Performed By: #### L 100.0100, L501.2300, L500.4050 ####[facility] [address] [place], [address] T4 Free Directon 11-08-2024 T4 FREE DIRECT 1.14 ng/dL Normal 0.76-1.46 [facility] Comment on above: Performed By: #### L 501.9520, L506.0400, L501.5200 ####[facility] [address] [place], [address] Thyroid Stim Hormone (TSH)on 11-08-2024 TSH 2.960 uIU/mL Normal 0.358-3.740 [facility] Comment on above: Performed By: #### L 501.9520, L506.0400, L501.5200 ####[facility] [address] [place], [address] 37on 10-20-20[address] Sharda busby on anemia and upper and lower endoscopy Normal [facility] Office Visiton 10-20-2024 Follow-up visit [id number] Mirna Arshad 1955 Date Provider Department Center 10/20/2024 [id number]-VLAFWEVNJACOB BOLES [facility] Family History Problem Relation Age of Onset Coronary artery disease Mother Comments: CABG Coronary artery disease Sister Comments: CABG Stroke Mother Comments: age 77 Lung cancer Mother No Known Problems Sister No Known Problems Brother No Known Problems Sister No Known Problems Sister Diabetes Sister Coronary artery disease Father Comments: age 50 [place] - smoker Coronary artery disease Brother Comments: age 47 [place] Family Status - Relation Status Age at Mother 77 Sister Alive Sister Alive Brother Alive Sister Alive Sister Alive Father 50 Brother 47 Level of Service:82159 DE OFFICE/OUTPATIENT ESTABLISHED MOD MDM 30 MIN Reason for Visit and Comments: Follow-up [046233] - Med check Normal [facility] Progress Noteon 10-20-2024 Progress Note [facility] - [address] [facility] [id number] Visit type: Established Patient Reason [...] recommendations for colonoscopy 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 Subjective: Patient [...] (Patient not taking: Reported on 10/20/2024) Lancets (Reef Point SystemsTouch Delica Plus Nvlont85D) misc USE TO TEST BLOOD SUGAR 2 [...] inguinal hernia (more content not included)... Normal [facility] CBC W/Diff, Automatedon 10-09 0-2023 Absolute Lymph 0.79 X10 3/uL Low 0.83-4.51 [facility] Comment on above: Performed By: #### L 500.4050, L100.0100, L501.2300 ####[facility] [address] [place], [address] Absolute Neut 5.8 X10 3/uL Normal 2.0-7.7 [facility] Comment on above: Performed By: #### L 500.4050, L100.0100, L501.2300 ####[facility] [address] [place], [address] Basophils/100 WBC (Bld) 0.7 % Normal 0-1 [facility] Comment on above: Performed By: #### L 500.4050, L100.0100, L501.2300 ####[facility] [address] [place], [address] Eosinophils/100 WBC (Bld) 1.6 % Normal 0-5 [facility] Comment on above: Performed By: #### L 500.4050, L100.0100, L501.2300 ####[facility] [address] [place], [address] Erythrocyte distribution width (RBC) [Ratio] 18.6 % High 11.6-14.6 [facility] Comment on above: Performed By: #### L 500.4050, L100.0100, L501.2300 ####[facility] [address] [place], [address] Hematocrit (Bld) [Volume fraction] 37.3 % Low 40-54 [facility] Comment on above: Performed By: #### L 500.4050, L100.0100, L501.2300 ####[facility] [address] [place], [address] Hemoglobin (Bld) [Mass/Vol] 11.5 g/dL Low 13.0-16.5 [facility] Comment on above: Performed By: #### L 500.4050, L100.0100, L501.2300 ####[facility] [address] [place], [address] IG% 1.500 High 0.0-0.9 [facility] Comment on above: Result Comment: IG% - Immature Granulocytes (promyelocytes, myelocytes andmetamyelocytes) > 1% indicates that a LEFT SHIFT is Present. Performed By: #### L 500.4050, L100.0100, L501.2300 ####[facility] [address] [place], [address] Lymphocytes/100 WBC (Bld) 10.5 % Low 19-41 [facility] Comment on above: Performed By: #### L 500.4050, L100.0100, L501.2300 ####[facility] [address] [place], [address] MCH (RBC) [Entitic mass] 22.3 pg Low 27.0-32.0 [facility] Comment on above: Performed By: #### L 500.4050, L100.0100, L501.2300 ####[facility] [address] [place], [address] MCHC (RBC) [Mass/Vol] 30.8 g/dL Low 32-36 [facility] Comment on above: Performed By: #### L 500.4050, L100.0100, L501.2300 ####[facility] [address] [place], [address] MCV (RBC) [Entitic vol] 72.4 fL Low 80-94 [facility] Comment on above: Performed By: #### L 500.4050, L100.0100, L501.2300 ####[facility] [address] [place], [address] Monocytes/100 WBC (Bld) 9.1 % Normal 0-10 [facility] Comment on above: Performed By: #### L 500.4050, L100.0100, L501.2300 ####[facility] [address] [place], [address] Neutrophils/100 WBC (Bld) 76.6 % High 47-70 [facility] Comment on above: Performed By: #### L 500.4050, L100.0100, L501.2300 ####[facility] [address] [place], [address] Nucleated RBC (Bld) [#/Vol] 0 10*3/uL Normal 0-5 [facility] Comment on above: Performed By: #### L 500.4050, L100.0100, L501.2300 ####[facility] [address] [place], [address] Platelet mean volume (Bld) [Entitic vol] 9.2 fL Normal 6.2-12.0 [facility] Comment on above: Performed By: #### L 500.4050, L100.0100, L501.2300 ####[facility] [address] [place], [address] Platelets (Bld) [#/Vol] 164 10*3/uL Normal 150-450 [facility] Comment on above: Performed By: #### L 500.4050, L100.0100, L501.2300 ####[facility] [address] [place], [address] RBC (Bld) [#/Vol] 5.15 10*6/uL Normal 4.6-6.2 [facility] Comment on above: Performed By: #### L 500.4050, L100.0100, L501.2300 ####[facility] [address] [place], [address] RDW SD 46.5 fl High 35.1-43.9 [facility] Comment on above: Performed By: #### L 500.4050, L100.0100, L501.2300 ####[facility] [address] [place], [address] WBC (Bld) [#/Vol] 7.5 10*3/uL Normal 4.4-11.0 [facility] Comment on above: Performed By: #### L 500.4050, L100.0100, L501.2300 ####[facility] [address] [place], [address] Comprehensive Metabolic [facility] 10-18-2024 Albumin [Mass/Vol] 3.3 g/dL Normal 3.2-5.0 [facility] Comment on above: Performed By: #### L 500.4050, L100.0100, L501.2300 ####[facility] [address] [place], [address] Albumin/Globulin [Mass ratio] 1.1 {ratio} Normal 0.9-2.4 [facility] Comment on above: Performed By: #### L 500.4050, L100.0100, L501.2300 ####[facility] [address] [place], [address] ALK P 72 U/L Normal 45-117 [facility] Comment on above: Performed By: #### L 500.4050, L100.0100, L501.2300 ####[facility] [address] [place], [address] ALT [Catalytic activity/Vol] 25 U/L Normal 16-61 [facility] Comment on above: Performed By: #### L 500.4050, L100.0100, L501.2300 ####[facility] [address] [place], [address] AST [Catalytic activity/Vol] 16 U/L Normal 15-37 [facility] Comment on above: Performed By: #### L 500.4050, L100.0100, L501.2300 ####[facility] [address] [place], [address] Bilirubin [Mass/Vol] 0.50 mg/dL Normal 0.20-1.00 [facility] Comment on above: Result Comment: For patients on eltrombopag therapy, use of Dimension [place] TBIL is not recommended. Performed By: #### L 500.4050, L100.0100, L501.2300 ####[facility] [address] [place], [address] BUN/CRE 13.5 RATIO Normal 10-20 [facility] Comment on above: Performed By: #### L 500.4050, L100.0100, L501.2300 ####[facility] [address] [place], [address] CA,Total 9.0 mg/dL Normal 8.5-10.1 [facility] Comment on above: Performed By: #### L 500.4050, L100.0100, L501.2300 ####[facility] [address] [place], [address] Chloride [Moles/Vol] 111 mmol/L High 98-107 [facility] Comment on above: Performed By: #### L 500.4050, L100.0100, L501.2300 ####[facility] [address] [place], [address] CO2 [Moles/Vol] 22.0 mmol/L Normal 21.0-32.0 [facility] Comment on above: Performed By: #### L 500.4050, L100.0100, L501.2300 ####[facility] [address] [place], [address] Creatinine [Mass/Vol] 0.96 mg/dL Normal 0.70-1.30 [facility] Comment on above: Result Comment: The validity of the calculated GFR GFRAA in patients over70 years has not been determined. Clinical correlation isessential. Performed By: #### L 500.4050, L100.0100, L501.2300 ####[facility] [address] [place], [address] ECRCL 75.32 ml/min Normal [facility] Comment on above: Performed By: #### L 500.4050, L100.0100, L501.2300 ####[facility] [address] [place], [address] EST GFR - AA 99 mL/min Normal >60 [facility] Comment on above: Result Comment: Afri can Trinidadian GFR Calc Performed By: #### L 500.4050, L100.0100, L501.2300 ####[facility] [address] [place], [address] GAP 6 Normal 5-15 [facility] Comment on above: Performed By: #### L 500.4050, L100.0100, L501.2300 ####[facility] [address] [place], [address] GFR/1.73 sq M.predicted among non-blacks MDRD (S/P/Bld) [Vol rate/Area] 82 mL/min/{1.73_m2} Normal >60 [facility] Comment on above: Result Comment: Non- GFR Calc Performed By: #### L 500.4050, L100.0100, L501.2300 ####[facility] [address] [place], [address] Globulin (S) [Mass/Vol] 3.1 g/dL Normal 2.2-4.2 [facility] Comment on above: Performed By: #### L 500.4050, L100.0100, L501.2300 ####[facility] [address] [place], [address] Glucose [Mass/Vol] 127 mg/dL High 74-106 [facility] Comment on above: Result Comment: Fast ing Glucose result greater than or equal to 126 mg/dLsuggests DIABETES MELLITUS per A.D.A. criteria. Performed By: #### L 500.4050, L100.0100, L501.2300 ####[facility] [address] [place], [address] Potassium [Moles/Vol] 3.6 mmol/L Normal 3.5-5.1 [facility] Comment on above: Performed By: #### L 500.4050, L100.0100, L501.2300 ####[facility] [address] [place], [address] Sodium [Moles/Vol] 139 mmol/L Normal 136-145 [facility] Comment on above: Performed By: #### L 500.4050, L100.0100, L501.2300 ####[facility] [address] [place], [address] T PROT 6.4 g/dL Normal 6.4-8.2 [facility] Comment on above: Performed By: #### L 500.4050, L100.0100, L501.2300 ####[facility] [address] [place], [address] Urea nitrogen [Mass/Vol] 13 mg/dL Normal 7-18 [facility] Comment on above: Performed By: #### L 500.4050, L100.0100, L501.2300 ####[facility] [address] [place], [address] Ferritinon 10-18-2024 Ferritin [Mass/Vol] 21 ng/mL Low 26-388 [facility] Comment on above: Order Comment: PLELISSET E ADD TO BLOOD IN THE LAB. THANK YOU!! Performed By: #### L 503.6550, L503.6030 ####[facility] [address] [place], [address] High density lipoprotein (HD L) measurementOrdered By: Thien Sandoval on 10-18-2024 Cholesterol in HDL [Mass/Vol] 35 mg/dL Low >40 [facility] Comment on above: The drugs N-Acetylcy steine and Metamizole may falsely depress this assay. Reference Range HDL <40 mg/dL Low HDL Cholesterol HDL >or= 60 mg/dL High HDL Cholesterol High density lipoprotein (HDL) measurement 35 mg/dL Low >40 [facility] Iron+Iron Binding Capacityon 10-18-2024 Iron [Mass/Vol] 36 ug/dL Low 65-175 [facility] Comment on above: Order Comment: PLEAS E ADD TO BLOOD IN THE LAB. THANK YOU!! Performed By: #### L 503.6550, L503.6030 ####[facility] [address] [place], [address] IRON SATURATION 8.6 Low 15.0-55.0 [facility] Comment on above: Order Comment: PLEAS E ADD TO BLOOD IN THE LAB. THANK YOU!! Performed By: #### L 503.6550, L503.6030 ####[facility] [address] [place], [address] TIBC 417 ug/dL Normal 250-450 [facility] Comment on above: Order Comment: PLEAS E ADD TO BLOOD IN THE LAB. THANK YOU!! Performed By: #### L 503.6550, L503.6030 ####[facility] [address] [place], [address] Lipid Profileon 10-18-2024 Cholesterol [Mass/Vol] 132 mg/dL Normal 200 [facility] Comment on above: Order Comment: ADD T O BLOOD IN LAB. THANK YOU!! Result Comment: <200 mg/dL Desirable 200-240 mg/dL Borderline >240 mg/dL High Risk Performed By: #### L 500.4100 ####[facility] [address] [place], [address] Cholesterol in HDL [Mass/Vol] 35 mg/dL Low [facility] Comment on above: Order Comment: ADD T O BLOOD IN LAB. THANK YOU!! Result Comment: The drugs N-Acetylcysteine and Metamizole may falselydepress this assay. Reference Range HDL <40 mg/dL Low HDL Cholesterol HDL >or= 60 mg/dL High HDL Cholesterol Performed By: #### L 500.4100 ####[facility] [address] [place], [address] Cholesterol in LDL [Mass/Vol] 68 mg/dL Normal 0-130 [facility] Comment on above: Order Comment: ADD T O BLOOD IN LAB. THANK YOU!! Performed By: #### L 500.4100 ####[facility] [address] [place], [address] Cholesterol in VLDL [Mass/Vol] 29 mg/dL Normal 5-40 [facility] Comment on above: Order Comment: ADD T O BLOOD IN LAB. THANK YOU!! Performed By: #### L 500.4100 ####[facility] [address] [place], [address] Triglyceride [Mass/Vol] 147 mg/dL Normal [facility] Comment on above: Order Comment: ADD T O BLOOD IN LAB. THANK YOU!! Result Comment: The drugs N-Acetylcysteine and Metamizole may falselydepress this assay.Serum Triglycerides Reference Interval Normal <150 mg/dL Borderline high 150 - 199 mg/dL High 200 - 499 mg/dL Very High > or = 500 mg/dL Performed By: #### L 500.4100 ####[facility] [address] [place], [place], [address] Low density lipoprotein (LDL ) cholesterol measurementOrdered By: Thien Sandoval on 10-18-2024 Cholesterol in LDL [Mass/Vol] 68 mg/dL 0-130 [facility] Low density lipoprotein (LDL) cholesterol measurement 68 mg/dL 0-130 [facility] Oncology Visit Reporton 10-09 0 Oncology Visit Report Normal [facility] Phosphoruson 10-18-2024 Phosphate [Mass/Vol] 2.9 mg/dL Normal 2.5-4.9 [facility] Comment on above: Performed By: #### L 500.4050, L100.0100, L501.2300 ####[facility] [address] [place], [place], [address] Serum or plasma cholesterol measurement (mass/volume)Ordered By: Thien Sandoval on 10-18-2024 Cholesterol [Mass/Vol] 132 mg/dL <200 [facility] Comment on above: <200 mg/dL Desirable 200-240 mg/dL Borderline >240 mg/dL High Risk Triglycerides measurementOrd ered By: Thien Sandoval on 10-18-2024 Triglyceride [Mass/Vol] 147 mg/dL <199 [facility] Comment on above: The drugs N-Acetylcy steine and Metamizole may falsely depress this assay.Serum Triglycerides Reference Interval Normal <150 mg/dL Borderline high 150 - 199 mg/dL High 200 - 499 mg/dL Very High > or = 500 mg/dL Very low density lipoprotein (VLDL) cholesterol measurementOrdered By: Thien Sandoval on 10-18-2024 Very low density lipoprotein (VLDL) cholesterol measurement 29 mg/dL 5-40 [facility] 36on 10-10-2024 36 Recent Visits Date Type Provider Dept 09/19/24 Office Visit Jacob Jennings DO [facility] 04/19/24 Office Visit Jacob Jennings DO [facility] 01/07/24 Office Visit Jacob Jennings DO [facility] 11/24/23 Office Visit Em Philip PA-C [facility] Showing recent visits within past 365 days and meeting all other requirements Future Appointments Date Type Provider Dept 10/20/24 Appointment Jacob Jennings DO [facility] Showing future appointments within next 90 days [...] labs completed in chart? No None Normal [facility] CBC W/Diff, Automatedon 09-10 Absolute Lymph 0.90 X10 3/uL Normal 0.83-4.51 [facility] Comment on above: Order Comment: PT WA S NOT FASTING OTHERWISE WOULD HAVE PULLED OVER LIPIDFOR DR SANDOVAL. PT HAD COFFEE WITH CREAM IN THE AM BEFOREARRIVING. Performed By: #### L 501.2300, L500.4050, L100.0100 ####[facility] [address] [place], [address] Absolute Neut 5.4 X10 3/uL Normal 2.0-7.7 [facility] Comment on above: Order Comment: PT WA S NOT FASTING OTHERWISE WOULD HAVE PULLED OVER LIPIDFOR DR SANDOVAL. PT HAD COFFEE WITH CREAM IN THE AM BEFOREARRIVING. Performed By: #### L 501.2300, L500.4050, L100.0100 ####[facility] [address] [place], [address] Basophils/100 WBC (Bld) 0.7 % Normal 0-1 [facility] Comment on above: Order Comment: PT WA S NOT FASTING OTHERWISE WOULD HAVE PULLED OVER LIPIDFOR DR SANDOVAL. PT HAD COFFEE WITH CREAM IN THE AM BEFOREARRIVING. Performed By: #### L 501.2300, L500.4050, L100.0100 ####[facility] [address] [place], [address] Eosinophils/100 WBC (Bld) 1.8 % Normal 0-5 [facility] Comment on above: Order Comment: PT WA S NOT FASTING OTHERWISE WOULD HAVE PULLED OVER LIPIDFOR DR SANDOVAL. PT HAD COFFEE WITH CREAM IN THE AM BEFOREARRIVING. Performed By: #### L 501.2300, L500.4050, L100.0100 ####[facility] [address] [place], [address] Erythrocyte distribution width (RBC) [Ratio] 17.9 % High 11.6-14.6 [facility] Comment on above: Order Comment: PT WA S NOT FASTING OTHERWISE WOULD HAVE PULLED OVER LIPIDFOR DR SANDOVAL. PT HAD COFFEE WITH CREAM IN THE AM BEFOREARRIVING. Performed By: #### L 501.2300, L500.4050, L100.0100 ####[facility] [address] [place], [address] Hematocrit (Bld) [Volume fraction] 37.7 % Low 40-54 [facility] Comment on above: Order Comment: PT WA S NOT FASTING OTHERWISE WOULD HAVE PULLED OVER LIPIDFOR DR SANDOVAL. PT HAD COFFEE WITH CREAM IN THE AM BEFOREARRIVING. Performed By: #### L 501.2300, L500.4050, L100.0100 ####[facility] [address] [place], [address] Hemoglobin (Bld) [Mass/Vol] 11.7 g/dL Low 13.0-16.5 [facility] Comment on above: Order Comment: PT WA S NOT FASTING OTHERWISE WOULD HAVE PULLED OVER LIPIDFOR DR SANDOVAL. PT HAD COFFEE WITH CREAM IN THE AM BEFOREARRIVING. Performed By: #### L 501.2300, L500.4050, L100.0100 ####[facility] [address] [place], [address] IG% 2.100 High 0.0-0.9 [facility] Comment on above: Order Comment: PT WA S NOT FASTING OTHERWISE WOULD HAVE PULLED OVER LIPIDFOR DR SANDOVAL. PT HAD COFFEE WITH CREAM IN THE AM BEFOREARRIVING. Result Comment: IG% - Immature Granulocytes (promyelocytes, myelocytes andmetamyelocytes) > 1% indicates that a LEFT SHIFT is Present. Performed By: #### L 501.2300, L500.4050, L100.0100 ####[facility] [address] [place], [address] Lymphocytes/100 WBC (Bld) 12.3 % Low 19-41 [facility] Comment on above: Order Comment: PT WA S NOT FASTING OTHERWISE WOULD HAVE PULLED OVER LIPIDFOR DR SANDOVAL. PT HAD COFFEE WITH CREAM IN THE AM BEFOREARRIVING. Performed By: #### L 501.2300, L500.4050, L100.0100 ####[facility] [address] [place], [address] MCH (RBC) [Entitic mass] 22.5 pg Low 27.0-32.0 [facility] Comment on above: Order Comment: PT WA S NOT FASTING OTHERWISE WOULD HAVE PULLED OVER LIPIDFOR DR SANDOVAL. PT HAD COFFEE WITH CREAM IN THE AM BEFOREARRIVING. Performed By: #### L 501.2300, L500.4050, L100.0100 ####[facility] [address] [place], [address] MCHC (RBC) [Mass/Vol] 31.0 g/dL Low 32-36 [facility] Comment on above: Order Comment: PT WA S NOT FASTING OTHERWISE WOULD HAVE PULLED OVER LIPIDFOR DR SANDOVAL. PT HAD COFFEE WITH CREAM IN THE AM BEFOREARRIVING. Performed By: #### L 501.2300, L500.4050, L100.0100 ####[facility] [address] [place], [address] MCV (RBC) [Entitic vol] 72.4 fL Low 80-94 [facility] Comment on above: Order Comment: PT WA S NOT FASTING OTHERWISE WOULD HAVE PULLED OVER LIPIDFOR DR SANDOVAL. PT HAD COFFEE WITH CREAM IN THE AM BEFOREARRIVING. Performed By: #### L 501.2300, L500.4050, L100.0100 ####[facility] [address] [place], [address] Monocytes/100 WBC (Bld) 8.8 % Normal 0-10 [facility] Comment on above: Order Comment: PT WA S NOT FASTING OTHERWISE WOULD HAVE PULLED OVER LIPIDFOR DR SANDOVAL. PT HAD COFFEE WITH CREAM IN THE AM BEFOREARRIVING. Performed By: #### L 501.2300, L500.4050, L100.0100 ####[facility] [address] [place], [address] Neutrophils/100 WBC (Bld) 74.3 % High 47-70 [facility] Comment on above: Order Comment: PT WA S NOT FASTING OTHERWISE WOULD HAVE PULLED OVER LIPIDFOR DR SANDOVAL. PT HAD COFFEE WITH CREAM IN THE AM BEFOREARRIVING. Performed By: #### L 501.2300, L500.4050, L100.0100 ####[facility] [address] [place], [address] Nucleated RBC (Bld) [#/Vol] 0 10*3/uL Normal 0-5 [facility] Comment on above: Order Comment: PT WA S NOT FASTING OTHERWISE WOULD HAVE PULLED OVER LIPIDFOR DR SANDOVAL. PT HAD COFFEE WITH CREAM IN THE AM BEFOREARRIVING. Performed By: #### L 501.2300, L500.4050, L100.0100 ####[facility] [address] [place], [address] Platelet mean volume (Bld) [Entitic vol] 9.0 fL Normal 6.2-12.0 [facility] Comment on above: Order Comment: PT WA S NOT FASTING OTHERWISE WOULD HAVE PULLED OVER LIPIDFOR DR SANDOVAL. PT HAD COFFEE WITH CREAM IN THE AM BEFOREARRIVING. Performed By: #### L 501.2300, L500.4050, L100.0100 ####[facility] [address] [place], [address] Platelets (Bld) [#/Vol] 169 10*3/uL Normal 150-450 [facility] Comment on above: Order Comment: PT WA S NOT FASTING OTHERWISE WOULD HAVE PULLED OVER LIPIDFOR DR SANDOVAL. PT HAD COFFEE WITH CREAM IN THE AM BEFOREARRIVING. Performed By: #### L 501.2300, L500.4050, L100.0100 ####[facility] [address] [place], [address] RBC (Bld) [#/Vol] 5.21 10*6/uL Normal 4.6-6.2 [facility] Comment on above: Order Comment: PT WA S NOT FASTING OTHERWISE WOULD HAVE PULLED OVER LIPIDFOR DR SANDOVAL. PT HAD COFFEE WITH CREAM IN THE AM BEFOREARRIVING. Performed By: #### L 501.2300, L500.4050, L100.0100 ####[facility] [address] [place], [address] RDW SD 46.1 fl High 35.1-43.9 [facility] Comment on above: Order Comment: PT WA S NOT FASTING OTHERWISE WOULD HAVE PULLED OVER LIPIDFOR DR SANDOVAL. PT HAD COFFEE WITH CREAM IN THE AM BEFOREARRIVING. Performed By: #### L 501.2300, L500.4050, L100.0100 ####[facility] [address] [place], [address] WBC (Bld) [#/Vol] 7.3 10*3/uL Normal 4.4-11.0 [facility] Comment on above: Order Comment: PT WA S NOT FASTING OTHERWISE WOULD HAVE PULLED OVER LIPIDFOR DR SANDOVAL. PT HAD COFFEE WITH CREAM IN THE AM BEFOREARRIVING. Performed By: #### L 501.2300, L500.4050, L100.0100 ####[facility] [address] [place], [address] Comprehensive Metabolic Prof [facility] 09-28-2024 Albumin [Mass/Vol] 3.3 g/dL Normal 3.2-5.0 [facility] Comment on above: Order Comment: PT WA S NOT FASTING OTHERWISE WOULD HAVE PULLED OVER LIPIDFOR DR SANDOVAL. PT HAD COFFEE WITH CREAM IN THE AM BEFOREARRIVING. Performed By: #### L 501.2300, L500.4050, L100.0100 ####[facility] [address] [place], [address] Albumin/Globulin [Mass ratio] 1.1 {ratio} Normal 0.9-2.4 [facility] Comment on above: Order Comment: PT WA S NOT FASTING OTHERWISE WOULD HAVE PULLED OVER LIPIDFOR DR SANDOVAL. PT HAD COFFEE WITH CREAM IN THE AM BEFOREARRIVING. Performed By: #### L 501.2300, L500.4050, L100.0100 ####[facility] [address] [place], [address] ALK P 66 U/L Normal 45-117 [facility] Comment on above: Order Comment: PT WA S NOT FASTING OTHERWISE WOULD HAVE PULLED OVER LIPIDFOR DR SANDOVAL. PT HAD COFFEE WITH CREAM IN THE AM BEFOREARRIVING. Performed By: #### L 501.2300, L500.4050, L100.0100 ####[facility] [address] [place], [address] ALT [Catalytic activity/Vol] 24 U/L Normal 16-61 [facility] Comment on above: Order Comment: PT WA S NOT FASTING OTHERWISE WOULD HAVE PULLED OVER LIPIDFOR DR SANDOVAL. PT HAD COFFEE WITH CREAM IN THE AM BEFOREARRIVING. Performed By: #### L 501.2300, L500.4050, L100.0100 ####[facility] [address] [place], [address] AST [Catalytic activity/Vol] 16 U/L Normal 15-37 [facility] Comment on above: Order Comment: PT WA S NOT FASTING OTHERWISE WOULD HAVE PULLED OVER LIPIDFOR DR SANDOVAL. PT HAD COFFEE WITH CREAM IN THE AM BEFOREARRIVING. Performed By: #### L 501.2300, L500.4050, L100.0100 ####[facility] [address] [place], [address] Bilirubin [Mass/Vol] 0.40 mg/dL Normal 0.20-1.00 [facility] Comment on above: Order Comment: PT WA S NOT FASTING OTHERWISE WOULD HAVE PULLED OVER LIPIDFOR DR SANDOVAL. PT HAD COFFEE WITH CREAM IN THE AM BEFOREARRIVING. Result Comment: For patients on eltrombopag therapy, use of Dimension [place] TBIL is not recommended. Performed By: #### L 501.2300, L500.4050, L100.0100 ####[facility] [address] [place], [address] BUN/CRE 23.2 RATIO High 10-20 [facility] Comment on above: Order Comment: PT WA S NOT FASTING OTHERWISE WOULD HAVE PULLED OVER LIPIDFOR DR SANDOVAL. PT HAD COFFEE WITH CREAM IN THE AM BEFOREARRIVING. Performed By: #### L 501.2300, L500.4050, L100.0100 ####[facility] [address] [place], [address] CA,Total 8.6 mg/dL Normal 8.5-10.1 [facility] Comment on above: Order Comment: PT WA S NOT FASTING OTHERWISE WOULD HAVE PULLED OVER LIPIDFOR DR SANDOVAL. PT HAD COFFEE WITH CREAM IN THE AM BEFOREARRIVING. Performed By: #### L 501.2300, L500.4050, L100.0100 ####[facility] [address] [place], [address] Chloride [Moles/Vol] 112 mmol/L High 98-107 [facility] Comment on above: Order Comment: PT WA S NOT FASTING OTHERWISE WOULD HAVE PULLED OVER LIPIDFOR DR SANDOVAL. PT HAD COFFEE WITH CREAM IN THE AM BEFOREARRIVING. Performed By: #### L 501.2300, L500.4050, L100.0100 ####[facility] [address] [place], [address] CO2 [Moles/Vol] 22.0 mmol/L Normal 21.0-32.0 [facility] Comment on above: Order Comment: PT WA S NOT FASTING OTHERWISE WOULD HAVE PULLED OVER LIPIDFOR DR SANDOVAL. PT HAD COFFEE WITH CREAM IN THE AM BEFOREARRIVING. Performed By: #### L 501.2300, L500.4050, L100.0100 ####[facility] [address] [place], [address] Creatinine [Mass/Vol] 0.95 mg/dL Normal 0.70-1.30 [facility] Comment on above: Order Comment: PT WA S NOT FASTING OTHERWISE WOULD HAVE PULLED OVER LIPIDFOR DR SANDOVAL. PT HAD COFFEE WITH CREAM IN THE AM BEFOREARRIVING. Result Comment: The validity of the calculated GFR GFRAA in patients over70 years has not been determined. Clinical correlation isessential. Performed By: #### L 501.2300, L500.4050, L100.0100 ####[facility] [address] [place], [address] ECRCL 77.22 ml/min Normal [facility] Comment on above: Order Comment: PT WA S NOT FASTING OTHERWISE WOULD HAVE PULLED OVER LIPIDFOR DR SANDOVAL. PT HAD COFFEE WITH CREAM IN THE AM BEFOREARRIVING. Performed By: #### L 501.2300, L500.4050, L100.0100 ####[facility] [address] [place], [address] EST GFR - AA 101 mL/min Normal >60 [facility] Comment on above: Order Comment: PT WA S NOT FASTING OTHERWISE WOULD HAVE PULLED OVER LIPIDFOR DR SANDOVAL. PT HAD COFFEE WITH CREAM IN THE AM BEFOREARRIVING. Result Comment: Afri can Trinidadian GFR Calc Performed By: #### L 501.2300, L500.4050, L100.0100 ####[facility] [address] [place], [address] GAP 4 Low 5-15 [facility] Comment on above: Order Comment: PT WA S NOT FASTING OTHERWISE WOULD HAVE PULLED OVER LIPIDFOR DR SANDOVAL. PT HAD COFFEE WITH CREAM IN THE AM BEFOREARRIVING. Performed By: #### L 501.2300, L500.4050, L100.0100 ####[facility] [address] [place], [address] GFR/1.73 sq M.predicted among non-blacks MDRD (S/P/Bld) [Vol rate/Area] 83 mL/min/{1.73_m2} Normal >60 [facility] Comment on above: Order Comment: PT WA S NOT FASTING OTHERWISE WOULD HAVE PULLED OVER LIPIDFOR DR SANDOVAL. PT HAD COFFEE WITH CREAM IN THE AM BEFOREARRIVING. Result Comment: Non- GFR Calc Performed By: #### L 501.2300, L500.4050, L100.0100 ####[facility] [address] [place], [address] Globulin (S) [Mass/Vol] 2.9 g/dL Normal 2.2-4.2 [facility] Comment on above: Order Comment: PT WA S NOT FASTING OTHERWISE WOULD HAVE PULLED OVER LIPIDFOR DR SANDOVAL. PT HAD COFFEE WITH CREAM IN THE AM BEFOREARRIVING. Performed By: #### L 501.2300, L500.4050, L100.0100 ####[facility] [address] [place], [address] Glucose [Mass/Vol] 125 mg/dL High 74-106 [facility] Comment on above: Order Comment: PT WA S NOT FASTING OTHERWISE WOULD HAVE PULLED OVER LIPIDFOR DR SANDOVAL. PT HAD COFFEE WITH CREAM IN THE AM BEFOREARRIVING. Result Comment: Fast ing Glucose result from 100 to 125 mg/dLsuggests IMPAIRED HOMEOSTASIS per A.D.A. criteria. Performed By: #### L 501.2300, L500.4050, L100.0100 ####[facility] [address] [place], [address] Potassium [Moles/Vol] 3.7 mmol/L Normal 3.5-5.1 [facility] Comment on above: Order Comment: PT WA S NOT FASTING OTHERWISE WOULD HAVE PULLED OVER LIPIDFOR DR SANDOVAL. PT HAD COFFEE WITH CREAM IN THE AM BEFOREARRIVING. Performed By: #### L 501.2300, L500.4050, L100.0100 ####[facility] [address] [place], [address] Sodium [Moles/Vol] 138 mmol/L Normal 136-145 [facility] Comment on above: Order Comment: PT WA S NOT FASTING OTHERWISE WOULD HAVE PULLED OVER LIPIDFOR DR SANDOVAL. PT HAD COFFEE WITH CREAM IN THE AM BEFOREARRIVING. Performed By: #### L 501.2300, L500.4050, L100.0100 ####[facility] [address] [place], [address] T PROT 6.2 g/dL Low 6.4-8.2 [facility] Comment on above: Order Comment: PT WA S NOT FASTING OTHERWISE WOULD HAVE PULLED OVER LIPIDFOR DR SANDOVAL. PT HAD COFFEE WITH CREAM IN THE AM BEFOREARRIVING. Performed By: #### L 501.2300, L500.4050, L100.0100 ####[facility] [address] [place], [address] Urea nitrogen [Mass/Vol] 22 mg/dL High 7-18 [facility] Comment on above: Order Comment: PT WA S NOT FASTING OTHERWISE WOULD HAVE PULLED OVER LIPIDFOR DR SANDOVAL. PT HAD COFFEE WITH CREAM IN THE AM BEFOREARRIVING. Performed By: #### L 501.2300, L500.4050, L100.0100 ####[facility] [address] [place], [address] Oncology Visit Reporton 09-10 Oncology Visit Report Normal [facility] Phosphoruson 09-28-2024 Phosphate [Mass/Vol] 3.2 mg/dL Normal 2.5-4.9 [facility] Comment on above: Order Comment: PT WA S NOT FASTING OTHERWISE WOULD HAVE PULLED OVER LIPIDFOR DR SANDOVAL. PT HAD COFFEE WITH CREAM IN THE AM BEFOREARRIVING. Performed By: #### L 501.2300, L500.4050, L100.0100 ####[facility] [address] [place], [address] 36on 09-22-2024 36 Rx loaded Normal [facility] 37on 09-19-2024 37 Call with any worsen ing of this left sided neck lesion. Apply first-aid ointment as directed. Normal [facility] Office Visiton 09-19-2024 Follow-up visit [id number] Mirna Arshad 1955 M Date Provider Department Center 09/19/2024 [id number] BOLES [facility] Family History Problem Relation Age of Onset Coronary artery disease Mother Comments: CABG Coronary artery disease Sister Comments: CABG Stroke Mother Comments: age 77 Lung cancer Mother No Known Problems Sister No Known Problems Brother No Known Problems Sister No Known Problems Sister Diabetes Sister Coronary artery disease Father Comments: age 50 [place] - smoker Coronary artery disease Brother Comments: age 47 [place] Family Status - Relation Status Age at Mother 77 Sister Alive Sister Alive Brother Alive Sister Alive Sister Alive Father 50 Brother 47 Level of Service:09993 DE OFFICE/OUTPATIENT ESTABLISHED LOW MDM 20 MIN Reason for Visit and Comments: Other [0] - Boil on left side of collar bone areas neck and left side of head Flu Vaccine [189] - Patient has already received the flu vaccine. Chart has been updated to reflect Normal [facility] Progress Noteon 09-19-2024 Progress Note [facility] - [address] [facility] [id number] Visit type: Established Patient Reason [...] care and Keflex Coronary artery disease involving swinomish coronary artery of swinomish heart without angina pectoris Lung cancer metastatic [...] 90 tablet 1 Lancets (OneTouch Delica Plus [id number]) misc USE TO TEST BLOOD SUGAR 2 [...] W/ FUSION (more content not included)... 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 Frontal white matter has decreased in size. No new lesions identified. 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 Paranasal sinuses redemonstrate extensive chronic inflammatory changes as outlined above. Trust Officer: FLAVIO Transcribe Date/Time: May 17 2024 11:16A Dictated by : JOCELYN SHAFER MD This examination was interpreted and the report reviewed and electronically signed by: JOCELYN SHAFER MD on May 17 2024 11:22AM [facility] [employer] * * *Final Report* * * DATE [...] Bilateral ocular lens implants again incidentally noted. [facility] Provider, [facility] - 05/17/2024 * * *Final Report* * [...] extensive chronic inflammatory changes as outlined above. Trust Officer: FLAVIO Transcribe Date/Time: May 17 2024 11:16A Dictated by : JOCELYN SHAFER MD This examination was interpreted and the report reviewed and electronically signed by: JOCELYN SHAFER MD on May 17 2024 11:22AM EST [facility] Radiology Study observation (narrative) [facility] MR Brain WO and W contrast I VOrdered By: [facility] Provider on 05-17-2024 [facility] Basophil percentageOrdered B y: Greg Sutherland on 03-09-2024 Chloride [Moles/Vol] 111 mmol/L 98-107 [facility] Glucose [Mass/Vol] 167 mg/dL 74-106 [facility] Comment on above: Fasting Glucose resu lt greater than or equal to 126 mg/dL suggests DIABETES MELLITUS per A.D.A. criteria. Hemoglobin (Bld) [Mass/Vol] 10.5 g/dL 13.0-16.5 [facility] Potassium [Moles/Vol] 4.0 mmol/L 3.5-5.1 [facility] Sodium [Moles/Vol] 138 mmol/L 136-145 [facility] WBC (Bld) [#/Vol] 8.6 10*3/uL 4.4-11.0 [facility] Determination of erythrocyte mean corpuscular volume (MCV)Ordered By: Greg Sutherland on 03-09-2024 MCV (RBC) [Entitic vol] 75.4 fL 80-94 [facility] Erythrocyte distribution wid th ratioOrdered By: Greg Sutherland on 03-09-2024 Erythrocyte distribution width (RBC) [Ratio] 19.0 % 11.6-14.6 [facility] Erythrocyte distribution wid th standard deviationOrdered By: Greg Sutherland on 03-09-2024 Erythrocyte distribution width (RBC) [Entitic vol] 50.0 fL 35.1-43.9 [facility] Hematocrit Auto (Bld) [Volum e fraction]Ordered By: Greg Sutherland on 03-09-2024 Hematocrit (Bld) [Volume fraction] 34.6 % 40-54 [facility] Laboratory - Chemistry and C hemistry - challengeOrdered By: Greg Sutherland on 03-09-2024 CO2 [Moles/Vol] 23.0 mmol/L 21.0-32.0 [facility] Urea nitrogen/Creatinine [Mass ratio] 15.7 mg/mg 10-20 [facility] Laboratory - Hematology and Cell countsOrdered By: Greg Sutherland on 03-09-2024 MCH (RBC) [Entitic mass] 22.9 pg 27.0-32.0 [facility] MCHC (RBC) [Mass/Vol] 30.3 g/dL 32-36 [facility] Platelet mean volume (Bld) [Entitic vol] 9.6 fL 6.2-12.0 [facility] Platelets (Bld) [#/Vol] 195 10*3/uL 150-450 [facility] No Panel InformationOrdered By: Greg Sutherland on 03-09-2024 Estimated Creatinine Clearance Calc 67.71 ml/min [facility] Estimated GFR (MDRD) Amer 87 mL/min >60 [facility] Comment on above: GFR Calc Estimated GFR (MDRD) Non-Af Amer 72 mL/min >60 [facility] Comment on above: Non- GFR Calc RBC Auto (Bld) [#/Vol]Ordere d By: Greg Sutherland on 03-09-2024 RBC (Bld) [#/Vol] 4.59 10*6/uL 4.6-6.2 [facility] Serum or plasma calcium deangelo urement (mass/volume)Ordered By: Greg Sutherland on 03-09-2024 Calcium [Mass/Vol] 8.5 mg/dL 8.5-10.1 [facility] Serum or plasma creatinine m easurement (mass/volume)Ordered By: Greg Sutherland on 03-09-2024 Creatinine [Mass/Vol] 1.08 mg/dL 0.70-1.30 [facility] Comment on above: The validity of the calculated GFR & GFRAA in patients over 70 years has not been determined. Clinical correlation is essential. Serum or plasma urea nitroge n measurement (mass/volume)Ordered By: Greg Sutherland on 03-09-2024 Urea nitrogen [Mass/Vol] 17 mg/dL 7-18 [facility] Thin prep Papanicolaou smear with manual screeningOrdered By: Greg Sutherland on 03-09-2024 Thin prep Papanicolaou smear with manual screening 4 5-15 [facility] Thin prep Papanicolaou smear with manual screeningOrdered By: Greg Sutherland on 03-08-2024 Thin prep Papanicolaou smear with manual screening 103 mg/dL 74-106 [facility] Comment on above: MANAGEMENT OF PATIEN T CARE PER NURSING PROTOCOL Absolute lymphocyte countOrd ered By: Angela Rodriguez on 03-02-2024 Lymphocytes Auto (Unsp spec) [#/Vol] 0.89 10*3/uL 0.83-4.51 [facility] Automated lymphocyte count a s percentage of total leukocytesOrdered By: Angela Nelsonjohn on 03-02-2024 Lymphocytes/100 WBC Auto (Unsp spec) 12.6 % 19-41 [facility] Basophil percentageOrdered B y: Angela Nelsonroman on 03-02-2024 Basophil percentage 3.1 mg/dL 2.5-4.9 [facility] Basophils/100 WBC (Bld) 0.6 % 0-1 [facility] Bilirubin [Mass/Vol] 0.40 mg/dL 0.20-1.00 [facility] Comment on above: For patients on eltr ombopag therapy, use of Dimension [place] TBIL is not recommended. Chloride [Moles/Vol] 113 mmol/L 98-107 [facility] Eosinophils/100 WBC (Bld) 2.0 % 0-5 [facility] Glucose [Mass/Vol] 110 mg/dL 74-106 [facility] Comment on above: Fasting Glucose resu lt from 100 to 125 mg/dL suggests IMPAIRED HOMEOSTASIS per A.D.A. criteria. Hemoglobin (Bld) [Mass/Vol] 10.1 g/dL 13.0-16.5 [facility] Monocytes/100 WBC (Bld) 8.6 % 0-10 [facility] Neutrophils (Bld) [#/Vol] 5.3 10*3/uL 2.0-7.7 [facility] Neutrophils/100 WBC (Bld) 74.8 % 47-70 [facility] Potassium [Moles/Vol] 3.6 mmol/L 3.5-5.1 [facility] Protein [Mass/Vol] 6.5 g/dL 6.4-8.2 [facility] Sodium [Moles/Vol] 140 mmol/L 136-145 [facility] WBC (Bld) [#/Vol] 7.1 10*3/uL 4.4-11.0 [facility] Determination of erythrocyte mean corpuscular volume (MCV)Ordered By: Angela Rodriguez on 03-02-2024 MCV (RBC) [Entitic vol] 73.5 fL 80-94 [facility] Erythrocyte distribution wid th ratioOrdered By: [facility] Michael on 03-02-2024 Erythrocyte distribution width (RBC) [Ratio] 17.4 % 11.6-14.6 [facility] Erythrocyte distribution wid th standard deviationOrdered By: [facility] on 03-02-2024 Erythrocyte distribution width (RBC) [Entitic vol] 45.9 fL 35.1-43.9 [facility] Hematocrit Auto (Bld) [Volum e fraction]Ordered By: [facility] Rodriguez on 03-02-2024 Hematocrit (Bld) [Volume fraction] 33.2 % 40-54 [facility] Immature granulocytes/100 WB C Auto (Bld)Ordered By: [facility] Rodriguez on 03-02-2024 Immature granulocytes/100 WBC (Bld) 1.400 % 0.0-0.9 [facility] Comment on above: IG% - Immature Granu locytes (promyelocytes, myelocytes and metamyelocytes) > 1% indicates that a LEFT SHIFT is Present. Iron measurement (mass/mass) Ordered By: Angela Rodriguez on 03-02-2024 Iron (Unsp spec) [Mass/Mass] 30 ug/dL 65-175 [facility] Laboratory - Chemistry and C hemistry - challengeOrdered By: [facility] on 03-02-2024 Albumin/Globulin [Mass ratio] 1.1 {ratio} 0.9-2.4 [facility] ALP [Catalytic activity/Vol] 53 U/L 45-117 [facility] ALT [Catalytic activity/Vol] 26 U/L 16-61 [facility] CO2 [Moles/Vol] 22.0 mmol/L 21.0-32.0 [facility] Ferritin [Mass/Vol] 23 ng/mL 26-388 [facility] Globulin (S) [Mass/Vol] 3.1 g/dL 2.2-4.2 [facility] Urea nitrogen/Creatinine [Mass ratio] 13.7 mg/mg 10-20 [facility] Laboratory - Hematology and Cell countsOrdered By: Angela Rodriguez on 03-02-2024 MCH (RBC) [Entitic mass] 22.3 pg 27.0-32.0 [facility] MCHC (RBC) [Mass/Vol] 30.4 g/dL 32-36 [facility] Nucleated RBC/100 WBC (Bld) [Ratio] 0 % 0-5 [facility] Platelet mean volume (Bld) [Entitic vol] 9.6 fL 6.2-12.0 [facility] Platelets (Bld) [#/Vol] 182 10*3/uL 150-450 [facility] No Panel InformationOrdered By: Angela Rodriguez on 03-02-2024 Estimated Creatinine Clearance Calc 72.09 ml/min [facility] Estimated GFR (MDRD) Amer 93 mL/min >60 [facility] Comment on above: GFR Calc Estimated GFR (MDRD) Non-Af Amer 77 mL/min >60 [facility] Comment on above: Non- GFR Calc Total Iron Binding Capacity 426 ug/dL 250-450 [facility] RBC Auto (Bld) [#/Vol]Ordere d By: Angela Rodriguez on 03-02-2024 RBC (Bld) [#/Vol] 4.52 10*6/uL 4.6-6.2 [facility] Serum or plasma calcium deangelo urement (mass/volume)Ordered By: Angela Rodriguez on 03-02-2024 Calcium [Mass/Vol] 8.6 mg/dL 8.5-10.1 [facility] Serum or plasma creatinine m easurement (mass/volume)Ordered By: Angela Rodriguez on 03-02-2024 Creatinine [Mass/Vol] 1.02 mg/dL 0.70-1.30 [facility] Comment on above: The validity of the calculated GFR & GFRAA in patients over 70 years has not been determined. Clinical correlation is essential. Serum or plasma iron saturat ion measurement (mass fraction)Ordered By: Angela Rodriguez on 03-02-2024 Iron saturation [Mass fraction] 7.0 % 15.0-55.0 [facility] Serum or plasma urea nitroge n measurement (mass/volume)Ordered By: Angela Rodriguez on 03-02-2024 Urea nitrogen [Mass/Vol] 14 mg/dL 7-18 [facility] Thin prep Papanicolaou smear with manual screeningOrdered By: Angela Rodriguez on 03-02-2024 Thin prep Papanicolaou smear with manual screening 3.4 g/dL 3.2-5.0 [facility] Thin prep Papanicolaou smear with manual screening 19 U/L 15-37 [facility] Thin prep Papanicolaou smear with manual screening 5 5-15 [facility] HIV 1 and HIV-2 antibody ass ay with HIV-1 p24 antigen detectionOrdered By: Greg Sutherland on 03-01-2024 HIV 1+2 Ab+HIV1 p24 Ag IA Ql Non-Reactive Nonreactive [facility] Laboratory - Chemistry and C hemistry - challengeOrdered By: Travon Lacey on 03-01-2024 Magnesium [Mass/Vol] 2.0 mg/dL 1.6-2.6 [facility] No Panel InformationOrdered By: Greg Sutherland on 03-01-2024 Hepatitis A Antibody Total Negative Negative [facility] Comment on above: Comment: The HAV tot [...] HAVtotal antibody results to IgM (e.g., panel #[id number] HAVAntibody w/ Rfx).Performed at: [address] [id number] Director: Jude Nur PhD, Phone: [phone] Hepatitis C Antibody Non-Reactive Nonreactive [facility] Comment on above: Non Reactive: < 0.8 Equivocal: >/= 0.8 to < 1.0 Reactive: >/= 1.0The CDC requires that a reactive/equivocal HCV antibody result be sent out for confirmation. HCV Quant by PCR testing. Nasal Screen MRSA/MSSA [facility] Serum hepatitis B virus surf xin antibody IgG detectionOrdered By: Greg Sutherland on 03-01-2024 HBV surface IgG Ql (S) Non-Reactive [facility] Comment on above: Non Reactive: Incons istent with immunity less than <10 mIU/mL Reactive: Consistent with immunity greater than or equal to 10 mIU/mL Whole blood hemoglobin A1c/t otal hemoglobin ratio (mass fraction)Ordered By: Greg Sutherland on 02-25-2024 HbA1c (Bld) [Mass fraction] 5.6 % 3.8-5.6 [facility] Comment on above: Normal < 5.7 % Predi abetic 5.7 - 6.4 % Diabetic >or= 6.5 % Please note range changes. MR Brain WO and W contrast I Von 02-15-2024 [facility] Lipid 1996 panelon Cholesterol [Mass/Vol] 141 mg/dL NINF - 200 mg/dL [facility] Cholesterol in HDL [Mass/Vol] 40 mg/dL 40 - 60 mg/dL [facility] Cholesterol in LDL [Mass/Vol] 76 mg/dL 0 - <100 [facility] Cholesterol.total/Chol esterol in HDL [Mass ratio] 4 {ratio} [facility] Comment on above: Ref Range: < 3 Low Risk for CHD 3-6 Mod Risk for CHD > 6 High Risk for CHD Triglyceride [Mass/Vol] 124 mg/dL NINF - 150 mg/dL [facility] Absolute lymphocyte countOrd ered By: Angela Rodriguez on 12-30-2023 Lymphocytes Auto (Unsp spec) [#/Vol] 0.84 10*3/uL 0.83-4.51 [facility] Automated lymphocyte count a s percentage of total leukocytesOrdered By: Angela Rodriguez on 12-30-2023 Lymphocytes/100 WBC Auto (Unsp spec) 12.1 % 19-41 [facility] Basophil percentageOrdered B y: Angela Rodriguez on 12-30-2023 Basophil percentage 2.7 mg/dL 2.5-4.9 [facility] Basophils/100 WBC (Bld) 0.7 % 0-1 [facility] Bilirubin [Mass/Vol] 0.50 mg/dL 0.20-1.00 [facility] Comment on above: For patients on eltr ombopag therapy, use of Dimension [place] TBIL is not recommended. Chloride [Moles/Vol] 114 mmol/L 98-107 [facility] Eosinophils/100 WBC (Bld) 1.3 % 0-5 [facility] Glucose [Mass/Vol] 122 mg/dL 74-106 [facility] Comment on above: Fasting Glucose resu lt from 100 to 125 mg/dL suggests IMPAIRED HOMEOSTASIS per A.D.A. criteria. Hemoglobin (Bld) [Mass/Vol] 10.9 g/dL 13.0-16.5 [facility] Monocytes/100 WBC (Bld) 8.3 % 0-10 [facility] Neutrophils (Bld) [#/Vol] 5.3 10*3/uL 2.0-7.7 [facility] Neutrophils/100 WBC (Bld) 75.9 % 47-70 [facility] Potassium [Moles/Vol] 3.9 mmol/L 3.5-5.1 [facility] Protein [Mass/Vol] 6.8 g/dL 6.4-8.2 [facility] Sodium [Moles/Vol] 141 mmol/L 136-145 [facility] WBC (Bld) [#/Vol] 7.0 10*3/uL 4.4-11.0 [facility] Determination of erythrocyte mean corpuscular volume (MCV)Ordered By: Angela Rodriguez on 12-30-2023 MCV (RBC) [Entitic vol] 77.3 fL 80-94 [facility] Erythrocyte distribution wid th ratioOrdered By: [facility] on 12-30-2023 Erythrocyte distribution width (RBC) [Ratio] 18.1 % 11.6-14.6 [facility] Erythrocyte distribution wid th standard deviationOrdered By: Angela Rodriguez on 12-30-2023 Erythrocyte distribution width (RBC) [Entitic vol] 50.3 fL 35.1-43.9 [facility] Hematocrit Auto (Bld) [Volum e fraction]Ordered By: Angela Rodriguez on 12-30-2023 Hematocrit (Bld) [Volume fraction] 35.4 % 40-54 [facility] Immature granulocytes/100 WB C Auto (Bld)Ordered By: Angela Rodriguez on 12-30-2023 Immature granulocytes/100 WBC (Bld) 1.700 % 0.0-0.9 [facility] Comment on above: IG% - Immature Granu locytes (promyelocytes, myelocytes and metamyelocytes) > 1% indicates that a LEFT SHIFT is Present. Laboratory - Chemistry and C hemistry - challengeOrdered By: Angela Rodirguez on 12-30-2023 Albumin/Globulin [Mass ratio] 1.1 {ratio} 0.9-2.4 [facility] ALP [Catalytic activity/Vol] 61 U/L 45-117 [facility] ALT [Catalytic activity/Vol] 23 U/L 16-61 [facility] CO2 [Moles/Vol] 22.0 mmol/L 21.0-32.0 [facility] Globulin (S) [Mass/Vol] 3.3 g/dL 2.2-4.2 [facility] Urea nitrogen/Creatinine [Mass ratio] 18.8 mg/mg 10-20 [facility] Laboratory - Hematology and Cell countsOrdered By: Angela Rodriguez on 12-30-2023 MCH (RBC) [Entitic mass] 23.8 pg 27.0-32.0 [facility] MCHC (RBC) [Mass/Vol] 30.8 g/dL 32-36 [facility] Nucleated RBC/100 WBC (Bld) [Ratio] 0 % 0-5 [facility] Platelet mean volume (Bld) [Entitic vol] 9.3 fL 6.2-12.0 [facility] Platelets (Bld) [#/Vol] 170 10*3/uL 150-450 [facility] No Panel InformationOrdered By: Angela Rodriguez on 12-30-2023 Estimated Creatinine Clearance Calc 71.76 ml/min [facility] Estimated GFR (MDRD) Amer 94 mL/min >60 [facility] Comment on above: GFR Calc Estimated GFR (MDRD) Non-Af Amer 78 mL/min >60 [facility] Comment on above: Non- GFR Calc RBC Auto (Bld) [#/Vol]Ordere d By: Angela Rodriguez on 12-30-2023 RBC (Bld) [#/Vol] 4.58 10*6/uL 4.6-6.2 [facility] Serum or plasma calcium deangelo urement (mass/volume)Ordered By: Angela Rodriguez on 12-30-2023 Calcium [Mass/Vol] 9.2 mg/dL 8.5-10.1 [facility] Serum or plasma creatinine m easurement (mass/volume)Ordered By: Angela Rodriguez on 12-30-2023 Creatinine [Mass/Vol] 1.01 mg/dL 0.70-1.30 [facility] Comment on above: The validity of the calculated GFR & GFRAA in patients over 70 years has not been determined. Clinical correlation is essential. Serum or plasma thyroid stim ulating hormone (TSH) measurement (units/volume)Ordered By: Angela Rodriguez on 12-30-2023 TSH Qn 2.09 uIU/mL 0.358-3.74 [facility] Serum or plasma urea nitroge n measurement (mass/volume)Ordered By: Angela Rodriguez on 12-30-2023 Urea nitrogen [Mass/Vol] 19 mg/dL 7-18 [facility] Thin prep Papanicolaou smear with manual screeningOrdered By: Angela Rodriguez on 12-30-2023 Thin prep Papanicolaou smear with manual screening 3.5 g/dL 3.2-5.0 [facility] Thin prep Papanicolaou smear with manual screening 12 U/L 15-37 [facility] Thin prep Papanicolaou smear with manual screening 5 5-15 [facility] Thin prep Papanicolaou smear with manual screening 1.05 ng/dL 0.76-1.46 [facility] Iron measurement (mass/mass) Ordered By: Angela Rodriguez on 12-09-2023 Iron (Unsp spec) [Mass/Mass] 35 ug/dL 65-175 [facility] Laboratory - Chemistry and C hemistry - challengeOrdered By: Angela Rodriguez on 12-09-2023 Cobalamin (Vitamin B12) [Mass/Vol] 310 pg/mL 211-911 [facility] Ferritin [Mass/Vol] 49 ng/mL 26-388 [facility] No Panel InformationOrdered By: Angela Rodriguez on 12-09-2023 Total Iron Binding Capacity 363 ug/dL 250-450 [facility] Serum or plasma iron saturat ion measurement (mass fraction)Ordered By: Angela Rodriguez on 12-09-2023 Iron saturation [Mass fraction] 9.6 % 15.0-55.0 [facility] Blood band neutrophil count as percentage of total leukocytesOrdered By: Angela Rodriguez on 11-18-2023 Band form neutrophils/100 WBC (Bld) 2 % 0-5 [facility] Blood lymphocytes/100 leukoc ytesOrdered By: Angela Rodriguez on 11-18-2023 Lymphocytes/100 WBC (Bld) 7 % 19-41 [facility] Blood metamyelocytes/100 meera kocytesOrdered By: Angela Rodriguez on 11-18-2023 Metamyelocytes/100 WBC (Bld) 1 % 0-1 [facility] Blood monocytes/100 leukocyt esOrdered By: Angela Rodriguez on 11-18-2023 Monocytes/100 WBC (Bld) 3 % 0-10 [facility] Blood segmented neutrophils/ 100 leukocytesOrdered By: Angela Rodriguez on 11-18-2023 Segmented neutrophils/100 WBC (Bld) 83 % 47-70 [facility] Laboratory - Hematology and Cell countsOrdered By: Angela Rodriguez on 11-18-2023 Myelocytes/100 WBC (Bld) 4 % High 0-0 [facility] No Panel InformationOrdered By: Angela Rodriguez on 11-18-2023 4 % High 0-0 [facility] Review by pathologistOrdered By: Angela Rodriguez on 11-18-2023 Pathologist review [place] (Unsp spec) [Interp] Reviewed [facility] Comment on above: Microcytic anemia.Cl inical correlation necessary.Duglas Martínez M.D. 11/19/23 Blood manual differential co mment interpretation (narrative result)Ordered By: Angela Rodriguez on 10-28-2023 Manual differential comment [place] (Bld) [Interp] COMMENT [facility] Comment on above: LYMPHOPENIA. Laboratory - Chemistry and C hemistry - challengeOrdered By: Angela Rodriguez on 10-28-2023 Magnesium [Mass/Vol] 2.2 mg/dL 1.6-2.6 [facility] No Panel InformationOrdered By: Angela Rodriguez on 10-28-2023 Free Triiodothyronine (T3) pg/dL 2.1 pg/mL Low 2.18-3.98 [facility] 2.1 pg/mL Low 2.18-3.98 [facility] MRI BRAIN WO/W IVCONon 10-19 MRI BRAIN [...] vasogenic edema. No new lesions are identified. Trust Officer: FLAVIO Transcribe Date/Time: Oct 20 2023 2:01P Dictated by : MARLENE PEREZ MD This examination was interpreted and the report reviewed and electronically signed by: MAU SYKES MD on Oct 20 2023 2:18PM EST [id number] Normal [facility] Absolute lymphocyte countOrd ered By: Khalif Horan on 10-18-2023 Lymphocytes Auto (Unsp spec) [#/Vol] 0.57 10*3/uL 0.83-4.51 [facility] Basophil percentageOrdered B y: Khalif Horan on 10-18-2023 Basophil percentage 0-5 SEEN /hpf 0-5 [facility] Basophils/100 WBC (Bld) 0.4 % 0-1 [facility] Chloride [Moles/Vol] 113 mmol/L 98-107 [facility] Eosinophils/100 WBC (Bld) 0.6 % 0-5 [facility] Glucose [Mass/Vol] 138 mg/dL 74-106 [facility] Comment on above: Fasting Glucose resu lt greater than or equal to 126 mg/dL suggests DIABETES MELLITUS per A.D.A. criteria. Neutrophils (Bld) [#/Vol] 6.3 10*3/uL 2.0-7.7 [facility] Neutrophils/100 WBC (Bld) 82.0 % 47-70 [facility] Potassium [Moles/Vol] 3.5 mmol/L 3.5-5.1 [facility] Sodium [Moles/Vol] 141 mmol/L 136-145 [facility] WBC (Bld) [#/Vol] 7.7 10*3/uL 4.4-11.0 [facility] Bilirubin Test strip Ql (U)O rdered By: Khalif Horan on 10-18-2023 Bilirubin Ql (U) Negative Negative [facility] Blood erythrocytes count (nu mber/volume)Ordered By: Khalif Horan on 10-18-2023 RBC (Bld) [#/Vol] 4.31 10*6/uL 4.6-6.2 [facility] Blood hemoglobin measurement (mass/volume)Ordered By: Khalif Horan on 10-18-2023 Hemoglobin (Bld) [Mass/Vol] 11.5 g/dL 13.0-16.5 [facility] Blood lymphocytes/100 leukoc ytesOrdered By: Khalif Horan on 10-18-2023 Lymphocytes/100 WBC (Bld) 7.4 % 19-41 [facility] Blood monocytes/100 leukocyt esOrdered By: Khalif Horan on 10-18-2023 Monocytes/100 WBC (Bld) 7.8 % 0-10 [facility] Blood platelet mean volumeOr dered By: Khalif Horan on 10-18-2023 Platelet mean volume (Bld) [Entitic vol] 9.4 fL 6.2-12.0 [facility] Determination of erythrocyte mean corpuscular volume (MCV)Ordered By: Khalif Horan on 10-18-2023 MCV (RBC) [Entitic vol] 81.9 fL 80-94 [facility] Glucose Glucometer (BldC) [M ass/Vol]Ordered By: Khalif Horan on 10-18-2023 Glucose [Mass/Vol] 122 mg/dL 74-106 [facility] Comment on above: MANAGEMENT OF PATIEN T CARE PER NURSING PROTOCOL Hematocrit Auto (Bld) [Volum e fraction]Ordered By: Khalif Horan on 10-18-2023 Hematocrit (Bld) [Volume fraction] 35.3 % 40-54 [facility] INR in Blood by Coagulation assayOrdered By: Khalif Horan on 10-18-2023 INR Coag (Bld) [Relative time] 1.0 {INR} [facility] Ketones Test strip Ql (U)Ord ered By: Khlaif Horan on 10-18-2023 Ketones Ql (U) Negative Negative [facility] Laboratory - Chemistry and C hemistry - challengeOrdered By: Khalif Horan on 10-18-2023 CO2 [Moles/Vol] 24.0 mmol/L 21.0-32.0 [facility] Urea nitrogen/Creatinine [Mass ratio] 21.3 mg/mg 10- [facility] Laboratory - CoagulationOrde red By: Khalif Horan on 10-18-2023 aPTT Coag (Bld) [Time] 32.6 s 24.1-36.2 [facility] PT Coag (PPP) [Time] 13.3 s 11.7-14.9 [facility] Laboratory - Hematology and Cell countsOrdered By: Khalif Horan on 10-18-2023 Erythrocyte distribution width (RBC) [Entitic vol] 49.2 fL 35.1-43.9 [facility] Erythrocyte distribution width (RBC) [Ratio] 16.5 % 11.6-14.6 [facility] Immature granulocytes/100 WBC (Bld) 1.800 % 0.0-0.9 [facility] Comment on above: IG% - Immature Granu locytes (promyelocytes, myelocytes and metamyelocytes) > 1% indicates that a LEFT SHIFT is Present. MCH (RBC) [Entitic mass] 26.7 pg 27.0-32.0 [facility] Nucleated RBC/100 WBC (Bld) [Ratio] 0 % 0-5 [facility] MCHC Auto (RBC) [Mass/Vol]Or dered By: Khalif Horan on 10-18-2023 MCHC (RBC) [Mass/Vol] 32.6 g/dL 32-36 [facility] Mucus LM Ql (Urine sed)Order ed By: Khalif Horan on 10-18-2023 Mucus Ql (Urine sed) 0 SEEN /hpf [facility] Nitrite Test strip Ql (U)Ord ered By: Khalif Horan on 10-18-2023 Nitrite Ql (U) Negative Negative [facility] No Panel InformationOrdered By: Khalif Horan on 10-18-2023 Estimated GFR (MDRD) Amer 115 mL/min >60 [facility] Comment on above: GFR Calc Estimated GFR (MDRD) Non-Af Amer 95 mL/min >60 [facility] Comment on above: Non- GFR Calc Troponin I High Sensitivity 10 pg/mL 3.0-78.0 [facility] Comment on above: Please Note: [place] t Units and Gender Specific Reference Ranges. For more information see Policy Stat Procedure [place] High Sensitivity Troponin (TNIH) and attachments. Platelets bldOrdered By: Lashon Horan on 10-18-2023 Platelets (Bld) [#/Vol] 148 10*3/uL 150-450 [facility] Protein Test strip Ql (U)Ord ered By: Khalif Horan on 10-18-2023 Protein Ql (U) 15 mg/dl Negative [facility] Serum or plasma calcium deangelo urement (mass/volume)Ordered By: Khalif Horan on 10-18-2023 Calcium [Mass/Vol] 9.2 mg/dL 8.5-10.1 [facility] Serum or plasma creatinine m easurement (mass/volume)Ordered By: Khalif Horan on 10-18-2023 Creatinine [Mass/Vol] 0.84 mg/dL 0.70-1.30 [facility] Comment on above: The validity of the calculated GFR & GFRAA in patients over 70 years has not been determined. Clinical correlation is essential. Serum or plasma urea nitroge n measurement (mass/volume)Ordered By: Khalif Horan on 10-18-2023 Urea nitrogen [Mass/Vol] 18 mg/dL 7-18 [facility] Squamous epithelial cells de tection in urine sediment by light microscopyOrdered By: Khalif Horan on 10-18-2023 Epithelial cells.squamous LM Ql (Urine sed) 0 SEEN /hpf 0-5 [facility] Thin prep Papanicolaou smear with manual screeningOrdered By: Khalif Horan on 10-18-2023 Thin prep Papanicolaou smear with manual screening 4 5-15 [facility] Urine blood detectionOrdered By: Khalif Horan on 10-18-2023 RBC Ql (U) Negative Negative [facility] RBC Ql (U) 0 SEEN /hpf 0-5 [facility] Urine clarityOrdered By: Lashon Horan on 10-18-2023 Clarity (U) Clear Clear [facility] Urine color determinationOrd ered By: Khalif Horan on 10-18-2023 Color (U) Yellow Yellow [facility] Urine glucose detectionOrder ed By: Khalif Horan on 10-18-2023 Glucose Ql (U) Normal mg/dl Normal [facility] Urine leukocyte esterase det ection by dipstickOrdered By: Khalif Horan on 10-18-2023 Leukocyte esterase Test strip Ql (U) 25 /ul Negative [facility] Urine pHOrdered By: Khalif cunningham on 10-18-2023 pH (U) 6.5 [pH] 5.0 - 8.0 [facility] Urine sediment bacteria coun t by microscopy (number/high power field)Ordered By: Khalif Horan on 10-18-2023 Bacteria LM.HPF (Urine sed) [#/Area] 0 /[HPF] None Seen [facility] Urine specific gravity measu rementOrdered By: Khalif Horan on 10-18-2023 Specific gravity (U) [Rel density] 1.015 1.002-1.030 [facility] Urobilinogen Auto test strip Ql (U)Ordered By: Khalif Horan on 10-18-2023 Urobilinogen Ql (U) Normal mg/dl Normal [facility] Absolute lymphocyte countOrd ered By: [facility] on 10-07-2023 Lymphocytes Auto (Unsp spec) [#/Vol] 0.82 10*3/uL 0.83-4.51 [facility] Basophil percentageOrdered B y: Angela Rodriguez on 10-07-2023 Basophil percentage 2.9 mg/dL 2.5-4.9 [facility] Basophils/100 WBC (Bld) 0.8 % 0-1 [facility] Bilirubin [Mass/Vol] 0.40 mg/dL 0.20-1.00 [facility] Comment on above: For patients on eltr ombopag therapy, use of Dimension [place] TBIL is not recommended. Chloride [Moles/Vol] 113 mmol/L 98-107 [facility] Eosinophils/100 WBC (Bld) 0.5 % 0-5 [facility] Glucose [Mass/Vol] 113 mg/dL 74-106 [facility] Comment on above: Fasting Glucose resu lt from 100 to 125 mg/dL suggests IMPAIRED HOMEOSTASIS per A.D.A. criteria. Neutrophils (Bld) [#/Vol] 4.9 10*3/uL 2.0-7.7 [facility] Neutrophils/100 WBC (Bld) 74.2 % 47-70 [facility] Potassium [Moles/Vol] 3.7 mmol/L 3.5-5.1 [facility] Protein [Mass/Vol] 6.7 g/dL 6.4-8.2 [facility] Sodium [Moles/Vol] 140 mmol/L 136-145 [facility] WBC (Bld) [#/Vol] 6.6 10*3/uL 4.4-11.0 [facility] Blood erythrocytes count (nu mber/volume)Ordered By: Angela Rodriguez on 10-07-2023 RBC (Bld) [#/Vol] 4.57 10*6/uL 4.6-6.2 [facility] Blood hemoglobin measurement (mass/volume)Ordered By: Angela Rodriguez on 10-07-2023 Hemoglobin (Bld) [Mass/Vol] 11.5 g/dL 13.0-16.5 [facility] Blood lymphocytes/100 leukoc ytesOrdered By: [facility] on 10-07-2023 Lymphocytes/100 WBC (Bld) 12.4 % 19-41 [facility] Blood monocytes/100 leukocyt esOrdered By: [facility] on 10-07-2023 Monocytes/100 WBC (Bld) 8.2 % 0-10 [facility] Blood platelet mean volumeOr dered By: Angela Rodriguez on 10-07-2023 Platelet mean volume (Bld) [Entitic vol] 9.0 fL 6.2-12.0 [facility] Determination of erythrocyte mean corpuscular volume (MCV)Ordered By: [facility] on 10-07-2023 MCV (RBC) [Entitic vol] 82.5 fL 80-94 [facility] Hematocrit Auto (Bld) [Volum e fraction]Ordered By: [facility] on 10-07-2023 Hematocrit (Bld) [Volume fraction] 37.7 % 40-54 [facility] Laboratory - Chemistry and C hemistry - challengeOrdered By: [facility] on 10-07-2023 ALP [Catalytic activity/Vol] 58 U/L 45-117 [facility] ALT [Catalytic activity/Vol] 25 U/L 16-61 [facility] CO2 [Moles/Vol] 21.0 mmol/L 21.0-32.0 [facility] Globulin (S) [Mass/Vol] 3.2 g/dL 2.2-4.2 [facility] Urea nitrogen/Creatinine [Mass ratio] 18.7 mg/mg 10-20 [facility] Laboratory - Hematology and Cell countsOrdered By: Angela Rodriguez on 10-07-2023 Erythrocyte distribution width (RBC) [Entitic vol] 49.7 fL 35.1-43.9 [facility] Erythrocyte distribution width (RBC) [Ratio] 16.8 % 11.6-14.6 [facility] Immature granulocytes/100 WBC (Bld) 3.900 % 0.0-0.9 [facility] Comment on above: IG% - Immature Granu locytes (promyelocytes, myelocytes and metamyelocytes) > 1% indicates that a LEFT SHIFT is Present. MCH (RBC) [Entitic mass] 25.2 pg 27.0-32.0 [facility] Nucleated RBC/100 WBC (Bld) [Ratio] 0 % 0-5 [facility] MCHC Auto (RBC) [Mass/Vol]Or dered By: Angela Rodriguez on 10-07-2023 MCHC (RBC) [Mass/Vol] 30.5 g/dL 32-36 [facility] No Panel InformationOrdered By: Angela Rodriguez on 10-07-2023 Estimated Creatinine Clearance Calc 65.71 ml/min [facility] Estimated GFR (MDRD) Amer 106 mL/min >60 [facility] Comment on above: GFR Calc Estimated GFR (MDRD) Non-Af Amer 88 mL/min >60 [facility] Comment on above: Non- GFR Calc Platelets bldOrdered By: Antoni Rodriguez on 10-07-2023 Platelets (Bld) [#/Vol] 162 10*3/uL 150-450 [facility] Serum or plasma albumin deangelo urement (mass/volume)Ordered By: Angela Rodriguez on 10-07-2023 Albumin [Mass/Vol] 3.5 g/dL 3.2-5.0 [facility] Serum or plasma albumin/glob ulin mass ratioOrdered By: Angela Rodriguez on 10-07-2023 Albumin/Globulin [Mass ratio] 1.1 {ratio} 0.9-2.4 [facility] Serum or plasma calcium deangelo urement (mass/volume)Ordered By: Angela Rodriguez on 10-07-2023 Calcium [Mass/Vol] 8.7 mg/dL 8.5-10.1 [facility] Serum or plasma creatinine m easurement (mass/volume)Ordered By: Angela Rodriguez on 10-07-2023 Creatinine [Mass/Vol] 0.91 mg/dL 0.70-1.30 [facility] Comment on above: The validity of the calculated GFR & GFRAA in patients over 70 years has not been determined. Clinical correlation is essential. Serum or plasma urea nitroge n measurement (mass/volume)Ordered By: Angela Rodriguez on 10-07-2023 Urea nitrogen [Mass/Vol] 17 mg/dL 7-18 [facility] Thin prep Papanicolaou smear with manual screeningOrdered By: Angela Rodriguez on 10-07-2023 Thin prep Papanicolaou smear with manual screening 14 U/L 15-37 [facility] Thin prep Papanicolaou smear with manual screening 6 5-15 [facility] Blood band neutrophil count as percentage of total leukocytesOrdered By: Angela Rodriguez on 09-16-2023 Band form neutrophils/100 WBC (Bld) 1 % 0-5 [facility] Blood lymphocytes/100 leukoc ytesOrdered By: Angela Rodriguez on 09-16-2023 Lymphocytes/100 WBC (Bld) 14 % 19-41 [facility] Blood metamyelocytes/100 meera kocytesOrdered By: Angela Rodriguez on 09-16-2023 Metamyelocytes/100 WBC (Bld) 3 % 0-1 [facility] Blood monocytes/100 leukocyt esOrdered By: Angela Rodriguez on 09-16-2023 Monocytes/100 WBC (Bld) 7 % 0-10 [facility] Blood platelet adequacy dete ction by light microscopyOrdered By: Angela Rodriguez on 09-16-2023 Platelets LM Ql (Bld) ADEQUATE ADEQ [facility] Blood segmented neutrophils/ 100 leukocytesOrdered By: Angela Rodriguez on 09-16-2023 Segmented neutrophils/100 WBC (Bld) 73 % 47-70 [facility] Iron measurement (mass/mass) Ordered By: Angela Rodriguez on 09-16-2023 Iron (Unsp spec) [Mass/Mass] 80 ug/dL 65-175 [facility] Laboratory - Chemistry and C hemistry - challengeOrdered By: Angela Rodriguez on 09-16-2023 Free T4 [Mass/Vol] 1.18 ng/dL 0.76-1.46 [facility] Laboratory - Hematology and Cell countsOrdered By: Angela Rodriguez on 09-16-2023 Myelocytes/100 WBC (Bld) 2 % 0-0 [facility] No Panel InformationOrdered By: Angela Rodriguez on 09-16-2023 Thyroid Stimulating Hormone (TSH) 2.26 uIU/mL 0.358-3.74 [facility] Total Iron Binding Capacity 331 ug/dL 250-450 [facility] RBC morphologyOrdered By: Ivonne Rodriguez on 09-16-2023 RBC morphology finding Nom (Bld) NORM C+C NORMAL NORM C&C [facility] Review by pathologistOrdered By: Angela Rodriguez on 09-16-2023 Pathologist review [place] (Unsp spec) [Interp] Reviewed [facility] Comment on above: Previous reported re sult: Samira rehman Edited by: REGINA on 09/17/23:1545Neutrophilic left shift.Normocytic anemia.Duglas Martínez M.D. 09/17/23 AMENDED REPORT 09/17/23 1545 PATH REV previously reported as: Samira rehman Serum or plasma ferritin samantha surement (mass/volume)Ordered By: Angela Rodriguez on 09-16-2023 Ferritin [Mass/Vol] 121 ng/mL 26-388 [facility] Serum or plasma iron saturat ion measurement (mass fraction)Ordered By: Angela Rodriguez on 09-16-2023 Iron saturation [Mass fraction] 24.2 % 15.0-55.0 [facility] Total cell countOrdered By: Angela Rodriguez on 09-16-2023 Cells counted Molgen (Bld/Tiss) [#] 100 MANUAL DIFF [facility] Absolute lymphocyte countOrd ered By: Angela Rodriguez on 08-26-2023 Lymphocytes Auto (Unsp spec) [#/Vol] 0.50 10*3/uL 0.83-4.51 [facility] Basophil percentageOrdered B y: Angela Rodriguez on 08-26-2023 Basophil percentage Not Reportable [facility] Basophil percentage 1 % 0-5 [facility] Basophil percentage 2.9 mg/dL 2.5-4.9 [facility] Bilirubin [Mass/Vol] 0.80 mg/dL 0.20-1.00 [facility] Comment on above: For patients on eltr ombopag therapy, use of Dimension [place] TBIL is not recommended. Chloride [Moles/Vol] 110 mmol/L 98-107 [facility] Glucose [Mass/Vol] 143 mg/dL 74-106 [facility] Comment on above: Fasting Glucose resu lt greater than or equal to 126 mg/dL suggests DIABETES MELLITUS per A.D.A. criteria. Neutrophils (Bld) [#/Vol] 4.5 10*3/uL 2.0-7.7 [facility] Potassium [Moles/Vol] 3.5 mmol/L 3.5-5.1 [facility] Protein [Mass/Vol] 6.6 g/dL 6.4-8.2 [facility] Sodium [Moles/Vol] 138 mmol/L 136-145 [facility] WBC (Bld) [#/Vol] 5.6 10*3/uL 4.4-11.0 [facility] Blood band neutrophil count as percentage of total leukocytesOrdered By: Angela Rodriguez on 08-26-2023 Band form neutrophils/100 WBC (Bld) 2 % 0-5 [facility] Blood erythrocytes count (nu mber/volume)Ordered By: Angela Rodriguez on 08-26-2023 RBC (Bld) [#/Vol] 4.11 10*6/uL 4.6-6.2 [facility] Blood hemoglobin measurement (mass/volume)Ordered By: Angela Rodriguez on 08-26-2023 Hemoglobin (Bld) [Mass/Vol] 11.1 g/dL 13.0-16.5 [facility] Blood lymphocytes/100 leukoc ytesOrdered By: Angela Rodriguez on 08-26-2023 Lymphocytes/100 WBC (Bld) 9 % 19-41 [facility] Blood monocytes/100 leukocyt esOrdered By: Angela Rodriguez on 08-26-2023 Monocytes/100 WBC (Bld) 6 % 0-10 [facility] Blood platelet adequacy dete ction by light microscopyOrdered By: Angela Rodriguez on 08-26-2023 Platelets LM Ql (Bld) [facility]Q [facility] Blood platelet mean volumeOr dered By: Angela Rodriguez on 08-26-2023 Platelet mean volume (Bld) [Entitic vol] 8.4 fL 6.2-12.0 [facility] Blood promyelocytes/100 leuk ocytesOrdered By: Angela Rodriguez on 08-26-2023 Promyelocytes/100 WBC (Bld) 1 % 0-0 [facility] Blood segmented neutrophils/ 100 leukocytesOrdered By: [facility] on 08-26-2023 Segmented neutrophils/100 WBC (Bld) 79 % 47-70 [facility] Determination of erythrocyte mean corpuscular volume (MCV)Ordered By: Angela Rodriguez on 08-26-2023 MCV (RBC) [Entitic vol] 82.2 fL 80-94 [facility] Hematocrit Auto (Bld) [Volum e fraction]Ordered By: Angela Rodriguez on 08-26-2023 Hematocrit (Bld) [Volume fraction] 33.8 % 40-54 [facility] Laboratory - Chemistry and C hemistry - challengeOrdered By: [facility] on 08-26-2023 ALP [Catalytic activity/Vol] 69 U/L 45-117 [facility] ALT [Catalytic activity/Vol] 25 U/L 16-61 [facility] CO2 [Moles/Vol] 21.0 mmol/L 21.0-32.0 [facility] Globulin (S) [Mass/Vol] 3.6 g/dL 2.2-4.2 [facility] Urea nitrogen/Creatinine [Mass ratio] 16.4 mg/mg 10-20 [facility] Laboratory - Hematology and Cell countsOrdered By: [facility] on 08-26-2023 Erythrocyte distribution width (RBC) [Entitic vol] 48.2 fL 35.1-43.9 [facility] Erythrocyte distribution width (RBC) [Ratio] 16.2 % 11.6-14.6 [facility] MCH (RBC) [Entitic mass] 27.0 pg 27.0-32.0 [facility] Myelocytes/100 WBC (Bld) 3 % 0-0 [facility] MCHC Auto (RBC) [Mass/Vol]Or dered By: Angela Rodriguez on 08-26-2023 MCHC (RBC) [Mass/Vol] 32.8 g/dL 32-36 [facility] No Panel InformationOrdered By: Angela Rodriguez on 08-26-2023 Estimated Creatinine Clearance Calc 71.35 ml/min [facility] Estimated GFR (MDRD) Amer 114 mL/min >60 [facility] Comment on above: GFR Calc Estimated GFR (MDRD) Non-Af Amer 94 mL/min >60 [facility] Comment on above: Non- GFR Calc Platelets bldOrdered By: Antoni Rodriguez on 08-26-2023 Platelets (Bld) [#/Vol] 115 10*3/uL 150-450 [facility] RBC morphologyOrdered By: Ivonne Rodriguez on 08-26-2023 RBC morphology finding Nom (Bld) NORM C+C NORMAL NORM C&C [facility] Review by pathologistOrdered By: Angela Rodriguez on 08-26-2023 Pathologist review [place] (Unsp spec) [Interp] Reviewed [facility] Comment on above: Previous reported re sult: Samira rehman Edited by: VERITO on 08/28/23:1043Neutrophilic left shift.Normocytic anemia.Mild Thrombocytopenia.Clinical correlation necessary.Duglas Martínez M.D. 08/28/23 AMENDED REPORT 08/28/23 1043 PATH REV previously reported as: Samira rehman Serum or plasma albumin deangelo urement (mass/volume)Ordered By: Angela Rodriguez on 08-26-2023 Albumin [Mass/Vol] 3.0 g/dL 3.2-5.0 [facility] Serum or plasma albumin/glob ulin mass ratioOrdered By: Angela Rodriguez on 08-26-2023 Albumin/Globulin [Mass ratio] 0.8 {ratio} 0.9-2.4 [facility] Serum or plasma calcium deangelo urement (mass/volume)Ordered By: Angela Rodriguez on 08-26-2023 Calcium [Mass/Vol] 9.0 mg/dL 8.5-10.1 [facility] Serum or plasma creatinine m easurement (mass/volume)Ordered By: Angela Rodriguez on 08-26-2023 Creatinine [Mass/Vol] 0.85 mg/dL 0.70-1.30 [facility] Comment on above: The validity of the calculated GFR & GFRAA in patients over 70 years has not been determined. Clinical correlation is essential. Serum or plasma urea nitroge n measurement (mass/volume)Ordered By: Angela Rodriguez on 08-26-2023 Urea nitrogen [Mass/Vol] 14 mg/dL 05-26 [facility] Thin prep Papanicolaou smear with manual screeningOrdered By: [facility] on 08-26-2023 Thin prep Papanicolaou smear with manual screening 13 U/L [facility] Thin prep Papanicolaou smear with manual screening 7 03-23 [facility] Total cell countOrdered By: [facility] on 08-26-2023 Cells counted Molgen (Bld/Tiss) [#] 100 MANUAL DIFF [facility] Laboratory - Chemistry and C hemistry - challengeOrdered By: Angela Rodriguez on 08-05-2023 Free T4 [Mass/Vol] 0.98 ng/dL 0.76-1.46 [facility] Magnesium [Mass/Vol] 2.3 mg/dL 1.6-2.6 [facility] No Panel InformationOrdered By: Angela Rodriguez on 08-05-2023 Thyroid Stimulating Hormone (TSH) 1.20 uIU/mL 0.358-3.74 [facility] MRI BRAIN WO/W IVCONon 08-04 MRI BRAIN WO/W IVCON * * *Final Report* * * DATE OF EXAM: Aug 04 2023 11:17AM [facility] 0295 - MRI BRAIN WO/W IVCON [...] disease. 5. No acute intracranial abnormalities noted. Trust Officer: FLAVIO Transcribe Date/Time: Aug 04 2023 11:36A Dictated by : JESSICA SMITH MD This examination was interpreted and the report reviewed and electronically signed by: JESSICA SMITH MD on Aug 04 2023 11:44AM EST [id number] Normal [facility] NURSING PROGon 08-04-2023 NURSING PROG HNO ID: [id number] Author: Katharina Oliva RN Service: Nursing Author [...] August 04, 2023 TIME: 10:55 AM Normal [facility] Blood metamyelocytes/100 meera kocytesOrdered By: Angela Rodriguez on 07-15-2023 Metamyelocytes/100 WBC (Bld) 2 % 0-1 [facility] Blood polychromasia detectio n by light microscopyOrdered By: Angela Rodriguez on 07-08-2023 Polychromasia LM Ql (Bld) RARE [facility] Absolute lymphocyte countOrd ered By: Angela Rodriguez on 06-17-2023 Lymphocytes Auto (Unsp spec) [#/Vol] 0.55 10*3/uL 0.83-4.51 [facility] Basophil percentageOrdered B y: Angela Rodriguez on 06-17-2023 Basophil percentage Not Reportable [facility] Basophil percentage 4.0 mg/dL 2.5-4.9 [facility] Bilirubin [Mass/Vol] 0.80 mg/dL 0.20-1.00 [facility] Comment on above: For patients on eltr ombopag therapy, use of Dimension [place] TBIL is not recommended. Chloride [Moles/Vol] 106 mmol/L 98-107 [facility] Glucose [Mass/Vol] 114 mg/dL 74-106 [facility] Comment on above: Fasting Glucose resu lt from 100 to 125 mg/dL suggests IMPAIRED HOMEOSTASIS per A.D.A. criteria. Neutrophils (Bld) [#/Vol] 6.7 10*3/uL 2.0-7.7 [facility] Potassium [Moles/Vol] 4.1 mmol/L 3.5-5.1 [facility] Protein [Mass/Vol] 6.4 g/dL 6.4-8.2 [facility] Sodium [Moles/Vol] 137 mmol/L 136-145 [facility] WBC (Bld) [#/Vol] 7.9 10*3/uL 4.4-11.0 [facility] Blood band neutrophil count as percentage of total leukocytesOrdered By: Angela Rodriguez on 06-17-2023 Band form neutrophils/100 WBC (Bld) 1 % 0-5 [facility] Blood eosinophils/100 leukoc ytesOrdered By: Angela Rodriguez on 06-17-2023 Eosinophils/100 WBC (Bld) 1 % 0-5 [facility] Blood erythrocytes count (nu mber/volume)Ordered By: Angela Rodriguez on 06-17-2023 RBC (Bld) [#/Vol] 4.32 10*6/uL 4.6-6.2 [facility] Blood hemoglobin measurement (mass/volume)Ordered By: Angela Rodriguez on 06-17-2023 Hemoglobin (Bld) [Mass/Vol] 11.5 g/dL 13.0-16.5 [facility] Blood lymphocytes/100 leukoc ytesOrdered By: Angela Rodriguez on 06-17-2023 Lymphocytes/100 WBC (Bld) 7 % 19-41 [facility] Blood monocytes/100 leukocyt esOrdered By: Angela Rodriguez on 06-17-2023 Monocytes/100 WBC (Bld) 5 % 0-10 [facility] Blood platelet adequacy dete ction by light microscopyOrdered By: Angela Rodriguez on 06-17-2023 Platelets LM Ql (Bld) MKD DEC ADEQ [facility] Blood platelet mean volumeOr dered By: Angela Rodriguez on 06-17-2023 Platelet mean volume (Bld) [Entitic vol] 9.4 fL 6.2-12.0 [facility] Blood segmented neutrophils/ 100 leukocytesOrdered By: Angela Rodriguez on 06-17-2023 Segmented neutrophils/100 WBC (Bld) 84 % 47-70 [facility] Determination of erythrocyte mean corpuscular volume (MCV)Ordered By: Angela Rodriguez on 06-17-2023 MCV (RBC) [Entitic vol] 83.8 fL 80-94 [facility] Hematocrit Auto (Bld) [Volum e fraction]Ordered By: Angela Rodriguez on 06-17-2023 Hematocrit (Bld) [Volume fraction] 36.2 % 40-54 [facility] Laboratory - Chemistry and C hemistry - challengeOrdered By: Angela Rodriguez on 06-17-2023 ALP [Catalytic activity/Vol] 43 U/L 45-117 [facility] ALT [Catalytic activity/Vol] 29 U/L 16-61 [facility] CO2 [Moles/Vol] 22.0 mmol/L 21.0-32.0 [facility] Globulin (S) [Mass/Vol] 2.8 g/dL 2.2-4.2 [facility] Urea nitrogen/Creatinine [Mass ratio] 28.9 mg/mg 10-20 [facility] Laboratory - Hematology and Cell countsOrdered By: Angela Rodriguez on 06-17-2023 Anisocytosis Ql (Bld) 2+ [facility] Erythrocyte distribution width (RBC) [Entitic vol] 61.3 fL 35.1-43.9 [facility] Erythrocyte distribution width (RBC) [Ratio] 20.2 % 11.6-14.6 [facility] MCH (RBC) [Entitic mass] 26.6 pg 27.0-32.0 [facility] Myelocytes/100 WBC (Bld) 2 % 0-0 [facility] MCHC Auto (RBC) [Mass/Vol]Or dered By: Angela Rodriguez on 06-17-2023 MCHC (RBC) [Mass/Vol] 31.8 g/dL 32-36 [facility] Macrocytes detectionOrdered By: Angela Rodriguez on 06-17-2023 Macrocytes Ql (Bld) 1+ [facility] No Panel InformationOrdered By: Angela Rodriguez on 06-17-2023 Estimated Creatinine Clearance Calc 60.65 ml/min [facility] Estimated GFR (MDRD) Amer 130 mL/min >60 [facility] Comment on above: GFR Calc Estimated GFR (MDRD) Non-Af Amer 108 mL/min >60 [facility] Comment on above: Non- GFR Calc Platelets bldOrdered By: Antoni Rodriguez on 06-17-2023 Platelets (Bld) [#/Vol] 66 10*3/uL 150-450 [facility] Review by pathologistOrdered By: Angela Rodriguez on 06-17-2023 Pathologist review [place] (Unsp spec) [Interp] Reviewed [facility] Comment on above: Previous reported re sult: Samira rehman Edited by: RGOOD on 06/18/23:1015Normocytic anemia.Marked Thrombocytopenia.Jag Pickard D.O. 06/18/23 AMENDED REPORT 06/18/23 1015 PATH REV previously reported as: Samira rehman Serum or plasma albumin deangelo urement (mass/volume)Ordered By: Angela Rodriguez on 06-17-2023 Albumin [Mass/Vol] 3.6 g/dL 3.2-5.0 [facility] Serum or plasma albumin/glob ulin mass ratioOrdered By: Angela Rodriguez on 06-17-2023 Albumin/Globulin [Mass ratio] 1.3 {ratio} 0.9-2.4 [facility] Serum or plasma calcium deangelo urement (mass/volume)Ordered By: Angela Rodriguez on 06-17-2023 Calcium [Mass/Vol] 9.2 mg/dL 8.5-10.1 [facility] Serum or plasma creatinine m easurement (mass/volume)Ordered By: Angela Rodriguez on 06-17-2023 Creatinine [Mass/Vol] 0.76 mg/dL 0.70-1.30 [facility] Comment on above: The validity of the calculated GFR & GFRAA in patients over 70 years has not been determined. Clinical correlation is essential. Serum or plasma urea nitroge n measurement (mass/volume)Ordered By: Angela Rodriguez on 06-17-2023 Urea nitrogen [Mass/Vol] 22 mg/dL 7-18 [facility] Thin prep Papanicolaou smear with manual screeningOrdered By: Angela Rodriguez on 06-17-2023 Thin prep Papanicolaou smear with manual screening 1+ [facility] Thin prep Papanicolaou smear with manual screening 15 U/L 15-37 [facility] Thin prep Papanicolaou smear with manual screening 9 5-15 [facility] Total cell countOrdered By: Angela Rordiguez on 06-17-2023 Cells counted Molgen (Bld/Tiss) [#] 100 MANUAL DIFF [facility] MRI BRAIN WO/W IVCONon 06-06 MRI BRAIN WO/W IVCON * * *Final Report* * * DATE OF EXAM: Jun 06 2023 11:39AM [facility] 0295 - MRI BRAIN WO/W IVCON [...] new lesion or other significant interval change. Trust Officer: [facility] Transcribe Date/Time: Jun 06 2023 1:27P Dictated by : CHINTAN HALLMAN MD This examination was interpreted and the report reviewed and electronically signed by: CHINTAN HALLMAN MD on Jun 06 2023 1:44PM EST [id number] Normal [facility] Blood metamyelocytes/100 meera kocytesOrdered By: Angela Rodriguez on 05-27-2023 Metamyelocytes/100 WBC (Bld) 7 % 0-1 [facility] RBC morphologyOrdered By: Ivonne Rodriguez on 05-27-2023 RBC morphology finding Nom (Bld) N CHROM NORMAL NORM C&C [facility] Clostridium difficile detect ion by polymerase chain reactionOrdered By: Verónica Meadows on 05-21-2023 C. difficile DNA DAVID+probe Ql (Unsp spec) [facility] C. difficile DNA DAVID+probe Ql (Unsp spec) [facility] Stool enteric pathogen panel by probe and target amplification methodOrdered By: Verónica Meadows on 05-21-2023 Gastrointestinal pathogens panel DAVID+probe (Stl) [facility] Gastrointestinal pathogens panel DAVID+probe (Stl) [facility] Basophil percentageOrdered B y: Angela Rodriguez on 05-19-2023 Basophil percentage 1 % 0-5 [facility] Blood polychromasia detectio n by light microscopyOrdered By: Angela Rodriguez on 05-19-2023 Polychromasia LM Ql (Bld) 1+ [facility] Iron measurement (mass/mass) Ordered By: Verónica Meadows on 05-19-2023 Iron (Unsp spec) [Mass/Mass] 47 ug/dL 65-175 [facility] Laboratory - Chemistry and C hemistry - challengeOrdered By: Angela Rodriguez on 05-19-2023 Free T4 [Mass/Vol] 1.41 ng/dL 0.76-1.46 [facility] Laboratory - Chemistry and C hemistry - challengeOrdered By: Verónica Meadows on 05-19-2023 Magnesium [Mass/Vol] 1.5 mg/dL 1.6-2.6 [facility] No Panel InformationOrdered By: Angela Rodriguez on 05-19-2023 Thyroid Stimulating Hormone (TSH) 1.16 uIU/mL 0.358-3.74 [facility] No Panel InformationOrdered By: Verónica Meadows on 05-19-2023 Total Iron Binding Capacity 233 ug/dL 250-450 [facility] Serum or plasma ferritin samantha surement (mass/volume)Ordered By: Verónica Meadows on 05-19-2023 Ferritin [Mass/Vol] 958 ng/mL 26-388 [facility] Serum or plasma iron saturat ion measurement (mass fraction)Ordered By: Verónica Meadows on 05-19-2023 Iron saturation [Mass fraction] 20.2 % 15.0-55.0 [facility] Absolute lymphocyte countOrd ered By: Khalif Quevedo on 05-06-2023 Lymphocytes Auto (Unsp spec) [#/Vol] 0.36 10*3/uL 0.83-4.51 [facility] Basophil percentageOrdered B y: Khalif Quevedo on 05-06-2023 Basophil percentage Not Reportable [facility] Basophil percentage 2 % 0-5 [facility] Basophils (Bld) [#/Vol] 4.6 10*3/uL 4.4-11.0 [facility] Basophils (Bld) [#/Vol] 3.9 10*3/uL 2.0-7.7 [facility] Basophils/100 WBC (Bld) 2 % 0-5 [facility] Neutrophils (Bld) [#/Vol] 3.9 10*3/uL 2.0-7.7 [facility] WBC (Bld) [#/Vol] 4.6 10*3/uL 4.4-11.0 [facility] Blood band neutrophil count as percentage of total leukocytesOrdered By: Khalif Quevedo on 05-06-2023 Band form neutrophils/100 WBC (Bld) 1 % 0-5 [facility] Blood erythrocytes count (nu mber/volume)Ordered By: Khalif Quevedo on 05-06-2023 RBC (Bld) [#/Vol] 4.19 10*6/uL 4.6-6.2 [facility] Blood hemoglobin measurement (mass/volume)Ordered By: Khalif Quevedo on 05-06-2023 Hemoglobin (Bld) [Mass/Vol] 10.7 g/dL 13.0-16.5 [facility] Blood lymphocytes/100 leukoc ytesOrdered By: Khalif Quevedo on 05-06-2023 Lymphocytes/100 WBC (Bld) 8 % 19-41 [facility] Blood metamyelocytes/100 meera kocytesOrdered By: Khalfi Quevedo on 05-06-2023 Metamyelocytes/100 WBC (Bld) 6 % 0-1 [facility] Blood platelet adequacy dete ction by light microscopyOrdered By: Khalif Quevedo on 05-06-2023 Platelets LM Ql (Bld) SLT DEC ADEQ [facility] Blood platelet mean volumeOr dered By: Khalif Quevedo on 05-06-2023 Platelet mean volume (Bld) [Entitic vol] 8.9 fL 6.2-12.0 [facility] Blood segmented neutrophils/ 100 leukocytesOrdered By: Khalif Quevedo on 05-06-2023 Segmented neutrophils/100 WBC (Bld) 84 % 47-70 [facility] Determination of erythrocyte mean corpuscular volume (MCV)Ordered By: Khalif Quevedo on 05-06-2023 MCV (RBC) [Entitic vol] 78.0 fL 80-94 [facility] Glucose Glucometer (BldC) [M ass/Vol]Ordered By: Khalif Quevedo on 05-06-2023 Glucose [Mass/Vol] 324 mg/dL 74-106 [facility] Comment on above: MANAGEMENT OF PATIEN T CARE PER NURSING PROTOCOL Hematocrit Auto (Bld) [Volum e fraction]Ordered By: Khalif Quevedo on 05-06-2023 Hematocrit (Bld) [Volume fraction] 32.7 % 40-54 [facility] Laboratory - Hematology and Cell countsOrdered By: Khalif Quevedo on 05-06-2023 Erythrocyte distribution width (RBC) [Entitic vol] 48.0 fL 35.1-43.9 [facility] Erythrocyte distribution width (RBC) [Ratio] 17.2 % 11.6-14.6 [facility] MCH (RBC) [Entitic mass] 25.5 pg 27.0-32.0 [facility] Myelocytes/100 WBC (Bld) 1 % 0-0 [facility] MCHC Auto (RBC) [Mass/Vol]Or dered By: Khalif Quevedo on 05-06-2023 MCHC (RBC) [Mass/Vol] 32.7 g/dL 32-36 [facility] No Panel InformationOrdered By: Khalif Quevedo on 05-06-2023 25.5 pg 27.0-32.0 [facility] 17.2 % 11.6-14.6 [facility] 48.0 fl 35.1-43.9 [facility] 1 % 0-0 [facility] Platelets bldOrdered By: Lashon Quevedo on 05-06-2023 Platelets (Bld) [#/Vol] 128 10*3/uL 150-450 [facility] RBC morphologyOrdered By: Azam Quevdeo on 05-06-2023 RBC morphology finding Nom (Bld) NORM C+C NORMAL NORM C&C [facility] Review by pathologistOrdered By: Khalif Quevedo on 05-06-2023 Pathologist review [place] (Unsp spec) [Interp] Samira rehman [facility] Pathologist review [place] (Unsp spec) [Interp] Reviewed [facility] Comment on above: Previous reported re sult: Samira rehman Edited by: RGOOD on 05/07/23:1318Microcytic anemia.NRBCs are noted.Mild Thrombocytopenia.Clinical correlation necessary.Duglas Martínez M.D. 05/07/23 AMENDED REPORT 05/07/23 1318 PATH REV previously reported as: Samira rehman Total cell countOrdered By: Khalif Quevedo on 05-06-2023 Cells counted Molgen (Bld/Tiss) [#] 100 MANUAL DIFF [facility] Basophil percentageOrdered B y: Khalif Quevedo on 05-05-2023 Basophil percentage 252 mg/dL 74-106 [facility] Basophil percentage 138 mmol/L 136-145 [facility] Basophil percentage 3.9 mmol/L 3.5-5.1 [facility] Basophil percentage 113 mmol/L 98-107 [facility] Chloride [Moles/Vol] 113 mmol/L 98-107 [facility] Glucose [Mass/Vol] 252 mg/dL 74-106 [facility] Comment on above: Glucose result great er than or equal to 200 mg/dLsuggests DIABETES MELLITUS per A.D.A. criteria. Potassium [Moles/Vol] 3.9 mmol/L 3.5-5.1 [facility] Sodium [Moles/Vol] 138 mmol/L 136-145 [facility] Blood monocytes/100 leukocyt esOrdered By: Khalif Quevedo on 05-05-2023 Monocytes/100 WBC (Bld) 4 % 0-10 [facility] Laboratory - Chemistry and C hemistry - challengeOrdered By: Khalif Quevedo on 05-05-2023 CO2 [Moles/Vol] 17.0 mmol/L 21.0-32.0 [facility] Urea nitrogen/Creatinine [Mass ratio] 30.8 mg/mg 08-28 [facility] Laboratory - Hematology and Cell countsOrdered By: Khalif Quevedo on 05-05-2023 Anisocytosis Ql (Bld) 1+ [facility] No Panel InformationOrdered By: Khalif Quevedo on 05-05-2023 Estimated Creatinine Clearance Calc 64.52 ml/min [facility] Estimated GFR (MDRD) Amer 102 mL/min >60 [facility] Comment on above: GFR Calc Estimated GFR (MDRD) Non-Af Amer 84 mL/min >60 [facility] Comment on above: Non- GFR Calc 1+ [facility] 84 mL/min >60 [facility] 102 mL/min >60 [facility] 64.52 ml/min [facility] 30.8 RATIO 10 [facility] 17.0 mmol/L 21.0-32.0 [facility] Serum or plasma calcium deangelo urement (mass/volume)Ordered By: Khalif Quevedo on 05-05-2023 Calcium [Mass/Vol] 8.8 mg/dL 8.5-10.1 [facility] Serum or plasma creatinine m easurement (mass/volume)Ordered By: Khalif Quevedo on 05-05-2023 Creatinine [Mass/Vol] 0.94 mg/dL 0.70-1.30 [facility] Comment on above: The validity of the calculated GFR & GFRAA in patients over 70 years has not been determined. Clinical correlation is essential. Serum or plasma urea nitroge n measurement (mass/volume)Ordered By: Khalif Quevedo on 05-05-2023 Urea nitrogen [Mass/Vol] 29 mg/dL 7-18 [facility] Thin prep Papanicolaou smear with manual screeningOrdered By: Khalif Quevedo on 05-05-2023 Thin prep Papanicolaou smear with manual screening 1+ [facility] Thin prep Papanicolaou smear with manual screening 8 5-15 [facility] INR in Blood by Coagulation assayOrdered By: Travon Lacey on 05-04-2023 INR Coag (Bld) [Relative time] 1.2 {INR} [facility] Laboratory - CoagulationOrde red By: Travon Lacey on 05-04-2023 aPTT Coag (Bld) [Time] 38.0 s 24.1-36.2 [facility] PT Coag (PPP) [Time] 15.5 s 11.7-14.9 [facility] No Panel InformationOrdered By: Travon Lacey on 05-04-2023 15.5 SECONDS 11.7-14.9 [facility] 38.0 Seconds 24.1-36.2 [facility] Serum procalcitonin measurem entOrdered By: Benito Malcolm on 05-04-2023 Procalcitonin [Mass/Vol] 0.10 ng/mL 0.00-0.09 [facility] Comment on above: A procalcitonin (PCT ) [...] on 05-03-2023 Basophil percentage 5.8 g/dL 6.4-8.2 [facility] Basophil percentage 4.0 mg/dL 2.5-4.9 [facility] Basophil percentage 0.40 mg/dL 0.20-1.00 [facility] Bilirubin [Mass/Vol] 0.40 mg/dL 0.20-1.00 [facility] Comment on above: For patients on eltr ombopag therapy, use of Dimension [place] TBIL is not recommended. Protein [Mass/Vol] 5.8 g/dL 6.4-8.2 [facility] Blood basophils/100 leukocyt esOrdered By: Tara Mae on 05-03-2023 Basophils/100 WBC (Bld) 1 % 0-1 [facility] Gram stain for investigation of transfusion reactionOrdered By: Tara Mae on 05-03-2023 Microscopic observation Gram stain Nom (Unsp spec) [facility] Laboratory - Chemistry and C hemistry - challengeOrdered By: Tara Mae on 05-03-2023 ALP [Catalytic activity/Vol] 46 U/L 45-117 [facility] ALT [Catalytic activity/Vol] 23 U/L 16-61 [facility] Globulin (S) [Mass/Vol] 3.3 g/dL 2.2-4.2 [facility] Magnesium [Mass/Vol] 2.2 mg/dL 1.6-2.6 [facility] Lower GI hemoglobin IA Ql (S tl)Ordered By: Tara Mae on 05-03-2023 Stool Occult Blood (CRYSTAL) Positive [facility] Stool gastrointestinal hemoglobin detection by immunologic method Positive [facility] Microbial respiratory cultur eOrdered By: Tara Mae on 05-03-2023 Bacteria identified Respiratory culture Nom (Unsp spec) or Staphylococcus aureus isolated. [facility] No Panel InformationOrdered By: Tara Mae on 05-03-2023 Thyroid Stimulating Hormone (TSH) 0.67 uIU/mL 0.358-3.74 [facility] 3.3 g/dL 2.2-4.2 [facility] 46 U/L 45-117 [facility] 23 U/L 16-61 [facility] 2.2 mg/dL 1.6-2.6 [facility] 0.67 uIU/mL 0.358-3.74 [facility] Serum or plasma albumin deangelo urement (mass/volume)Ordered By: Tara Mae on 05-03-2023 Albumin [Mass/Vol] 2.5 g/dL 3.2-5.0 [facility] Serum or plasma albumin/glob ulin mass ratioOrdered By: Tara Mae on 05-03-2023 Albumin/Globulin [Mass ratio] 0.8 {ratio} 0.9-2.4 [facility] Thin prep Papanicolaou smear with manual screeningOrdered By: Tara Mae on 05-03-2023 Thin prep Papanicolaou smear with manual screening 30 U/L 15-37 [facility] Absolute lymphocyte countOrd ered By: Dr. Simon on 05-02-2023 Lymphocytes Auto (Unsp spec) [#/Vol] 0.44 10*3/uL 0.83-4.51 [facility] Basophil percentageOrdered B y: Dr. Simon on 05-02-2023 Basophil percentage Not Reportable [facility] Chloride [Moles/Vol] 104 mmol/L 98-107 [facility] Glucose [Mass/Vol] 169 mg/dL 74-106 [facility] Comment on above: Fasting Glucose resu lt greater than or equal to 126 mg/dL suggests DIABETES MELLITUS per A.D.A. criteria. Lactate [Moles/Vol] 1.8 mmol/L 0.4-2.0 [facility] Neutrophils (Bld) [#/Vol] 4.6 10*3/uL 2.0-7.7 [facility] Potassium [Moles/Vol] 3.7 mmol/L 3.5-5.1 [facility] Sodium [Moles/Vol] 132 mmol/L 136-145 [facility] WBC (Bld) [#/Vol] 5.5 10*3/uL 4.4-11.0 [facility] Basophil percentageOrdered B y: Indio Simon on 05-02-2023 Basophil percentage 1.8 mmol/L 0.4-2.0 [facility] Blood band neutrophil count as percentage of total leukocytesOrdered By: Dr. Simon on 05-02-2023 Band form neutrophils/100 WBC (Bld) 4 % 0-5 [facility] Blood erythrocytes count (nu mber/volume)Ordered By: Dr. Simon on 05-02-2023 RBC (Bld) [#/Vol] 4.49 10*6/uL 4.6-6.2 [facility] Blood hemoglobin measurement (mass/volume)Ordered By: Dr. Simon on 05-02-2023 Hemoglobin (Bld) [Mass/Vol] 11.4 g/dL 13.0-16.5 [facility] Blood lymphocytes/100 leukoc ytesOrdered By: Dr. Simon on 05-02-2023 Lymphocytes/100 WBC (Bld) 8 % 19-41 [facility] Blood metamyelocytes/100 meera kocytesOrdered By: Dr. Simon on 05-02-2023 Metamyelocytes/100 WBC (Bld) 3 % 0-1 [facility] Blood monocytes/100 leukocyt esOrdered By: Dr. Simon on 05-02-2023 Monocytes/100 WBC (Bld) 2 % 0-10 [facility] Blood platelet adequacy dete ction by light microscopyOrdered By: Dr. Simon on 05-02-2023 Platelets LM Ql (Bld) ADEQUATE ADEQ [facility] Blood platelet mean volumeOr dered By: Dr. Simon on 05-02-2023 Platelet mean volume (Bld) [Entitic vol] 9.6 fL 6.2-12.0 [facility] Blood segmented neutrophils/ [address]: [address] Simon on 05-02-2023 Segmented neutrophils/100 WBC (Bld) 79 % 47-70 [facility] COVID-19 virus antigen assay Ordered By: Dr. Simon on 05-02-2023 SARS-CoV-2 (COVID-19) Ag IA.rapid Ql (Resp) [facility] Determination of erythrocyte mean corpuscular volume (MCV)Ordered By: Dr. Simon on 05-02-2023 MCV (RBC) [Entitic vol] 77.7 fL 80-94 [facility] Hematocrit Auto (Bld) [Volum e fraction]Ordered By: Dr. Simon on 05-02-2023 Hematocrit (Bld) [Volume fraction] 34.9 % 40-54 [facility] Iron measurement (mass/mass) Ordered By: Tara Mae on 05-02-2023 Iron (Unsp spec) [Mass/Mass] 31 ug/dL 65-175 [facility] Laboratory - Chemistry and C hemistry - challengeOrdered By: Dr. Simon on 05-02-2023 CO2 [Moles/Vol] 19.0 mmol/L 21.0-32.0 [facility] Natriuretic peptide B (Bld) [Mass/Vol] 34.6 pg/mL 0-100 [facility] Urea nitrogen/Creatinine [Mass ratio] 18.6 mg/mg 10-20 [facility] Laboratory - Hematology and Cell countsOrdered By: Dr. Simon on 05-02-2023 Erythrocyte distribution width (RBC) [Entitic vol] 48.4 fL 35.1-43.9 [facility] Erythrocyte distribution width (RBC) [Ratio] 17.2 % 11.6-14.6 [facility] MCH (RBC) [Entitic mass] 25.4 pg 27.0-32.0 [facility] Myelocytes/100 WBC (Bld) 4 % 0-0 [facility] Laboratory - Microbiology an d Antimicrobial susceptibilityOrdered By: Indio Simon on 05-02-2023 Bacteria identified Cx Nom (Bld) No growth in 5 days. [facility] MCHC Auto (RBC) [Mass/Vol]Or dered By: Dr. Simon on 05-02-2023 MCHC (RBC) [Mass/Vol] 32.7 g/dL 32-36 [facility] No Panel InformationOrdered By: Dr. Simon on 05-02-2023 Estimated Creatinine Clearance Calc 62.52 ml/min [facility] Estimated GFR (MDRD) Amer 99 mL/min >60 [facility] Comment on above: GFR Calc Estimated GFR (MDRD) Non-Af Amer 82 mL/min >60 [facility] Comment on above: Non- GFR Calc Troponin I High Sensitivity 11 pg/mL 3.0-78.0 [facility] Comment on above: Please Note: [place] t Units and Gender Specific Reference Ranges. For more information see Policy Stat Procedure [place] High Sensitivity Troponin (TNIH) and attachments. No Panel InformationOrdered By: Tara Mae on 05-02-2023 Total Iron Binding Capacity 364 ug/dL 250-450 [facility] 364 ug/dL 250-450 [facility] No Panel InformationOrdered By: Indio Simon on 05-02-2023 11 pg/mL 3.0-78.0 [facility] 34.6 pg/mL 0-100 [facility] Platelets bldOrdered By: Dr. Simon on 05-02-2023 Platelets (Bld) [#/Vol] 105 10*3/uL 150-450 [facility] RBC morphologyOrdered By: Dr Stella Simon on 05-02-2023 RBC morphology finding Nom (Bld) NORM C+C NORMAL NORM C&C [facility] Review by pathologistOrdered By: Dr. Simon on 05-02-2023 Pathologist review [place] (Unsp spec) [Interp] May foll [facility] Serum or plasma calcium deangelo urement (mass/volume)Ordered By: Dr. Simon on 05-02-2023 Calcium [Mass/Vol] 8.9 mg/dL 8.5-10.1 [facility] Serum or plasma creatinine m easurement (mass/volume)Ordered By: Dr. Simon on 05-02-2023 Creatinine [Mass/Vol] 0.97 mg/dL 0.70-1.30 [facility] Comment on above: The validity of the calculated GFR & GFRAA in patients over 70 years has not been determined. Clinical correlation is essential. Serum or plasma ferritin samantha surement (mass/volume)Ordered By: Tara Mae on 05-02-2023 Ferritin [Mass/Vol] 969 ng/mL 26-388 [facility] Serum or plasma iron saturat ion measurement (mass fraction)Ordered By: Tara Mae on 05-02-2023 Iron saturation [Mass fraction] 8.5 % 15.0-55.0 [facility] Serum or plasma urea nitroge n measurement (mass/volume)Ordered By: Dr. Simon on 05-02-2023 Urea nitrogen [Mass/Vol] 18 mg/dL 7-18 [facility] Thin prep Papanicolaou smear with manual screeningOrdered By: Dr. Simon on 05-02-2023 Thin prep Papanicolaou smear with manual screening 9 5-15 [facility] Total cell countOrdered By: Dr. Simon on 05-02-2023 Cells counted Molgen (Bld/Tiss) [#] 100 MANUAL DIFF [facility] Whole blood hemoglobin A1c/t otal hemoglobin ratio (mass fraction)Ordered By: Tara Mae on 05-02-2023 HbA1c (Bld) [Mass fraction] 7.4 % 3.8-5.6 [facility] Comment on above: Normal < 5.7 % Predi abetic 5.7 - 6.4 % Diabetic >or= 6.5 % Please note range changes. Absolute lymphocyte countOrd ered By: Dr. Rodriguez on 04-28-2023 Lymphocytes Auto (Unsp spec) [#/Vol] 0.13 10*3/uL 0.83-4.51 [facility] Basophil percentageOrdered B y: Dr. Rodriguez on 04-28-2023 Basophil percentage Not Reportable [facility] Basophil percentage 1 % 0-5 [facility] Basophil percentage 2.3 mg/dL 2.5-4.9 [facility] Bilirubin [Mass/Vol] 0.50 mg/dL 0.20-1.00 [facility] Comment on above: For patients on eltr ombopag therapy, use of Dimension [place] TBIL is not recommended. Chloride [Moles/Vol] 104 mmol/L 98-107 [facility] Glucose [Mass/Vol] 205 mg/dL 74-106 [facility] Comment on above: Glucose result great er than or equal to 200 mg/dLsuggests DIABETES MELLITUS per A.D.A. criteria. Neutrophils (Bld) [#/Vol] 6.4 10*3/uL 2.0-7.7 [facility] Potassium [Moles/Vol] 4.0 mmol/L 3.5-5.1 [facility] Protein [Mass/Vol] 6.1 g/dL 6.4-8.2 [facility] Sodium [Moles/Vol] 133 mmol/L 136-145 [facility] WBC (Bld) [#/Vol] 6.8 10*3/uL 4.4-11.0 [facility] Basophil percentageOrdered B y: Angela Rodriguez on 04-28-2023 Basophil percentage 205 mg/dL 74-106 [facility] Basophil percentage 6.1 g/dL 6.4-8.2 [facility] Basophil percentage 0.50 mg/dL 0.20-1.00 [facility] Basophil percentage 133 mmol/L 136-145 [facility] Basophil percentage 4.0 mmol/L 3.5-5.1 [facility] Basophil percentage 104 mmol/L 98-107 [facility] Basophils (Bld) [#/Vol] 6.8 10*3/uL 4.4-11.0 [facility] Basophils (Bld) [#/Vol] 6.4 10*3/uL 2.0-7.7 [facility] Basophils/100 WBC (Bld) 1 % 0-5 [facility] Blood band neutrophil count as percentage of total leukocytesOrdered By: Dr. Rodriguez on 04-28-2023 Band form neutrophils/100 WBC (Bld) 5 % 0-5 [facility] Blood erythrocytes count (nu mber/volume)Ordered By: Dr. Rodriguez on 04-28-2023 RBC (Bld) [#/Vol] 4.65 10*6/uL 4.6-6.2 [facility] Blood hemoglobin measurement (mass/volume)Ordered By: Dr. Rodriguez on 04-28-2023 Hemoglobin (Bld) [Mass/Vol] 12.0 g/dL 13.0-16.5 [facility] Blood lymphocytes/100 leukoc ytesOrdered By: Dr. Rodriguez on 04-28-2023 Lymphocytes/100 WBC (Bld) 2 % 19-41 [facility] Blood metamyelocytes/100 meera kocytesOrdered By: Dr. Rodriguez on 04-28-2023 Metamyelocytes/100 WBC (Bld) 4 % 0-1 [facility] Blood monocytes/100 leukocyt esOrdered By: Dr. Rodriguez on 04-28-2023 Monocytes/100 WBC (Bld) 1 % 0-10 [facility] Blood platelet adequacy dete ction by light microscopyOrdered By: Dr. Rodriguez on 04-28-2023 Platelets LM Ql (Bld) SLT ADEQ [facility] Blood platelet mean volumeOr dered By: Dr. Rodriguez on 04-28-2023 Platelet mean volume (Bld) [Entitic vol] 9.2 fL 6.2-12.0 [facility] Blood segmented neutrophils/ [address]: [address] Rodriguez on 04-28-2023 Segmented neutrophils/100 WBC (Bld) 88 % 47-70 [facility] Determination of erythrocyte mean corpuscular volume (MCV)Ordered By: Dr. Rodriguez on 04-28-2023 MCV (RBC) [Entitic vol] 76.6 fL 80-94 [facility] Hematocrit Auto (Bld) [Volum e fraction]Ordered By: Dr. Rodriguez on 04-28-2023 Hematocrit (Bld) [Volume fraction] 35.6 % 40-54 [facility] Laboratory - Chemistry and C hemistry - challengeOrdered By: Dr. Rodriguez on 04-28-2023 ALP [Catalytic activity/Vol] 48 U/L 45-117 [facility] ALT [Catalytic activity/Vol] 24 U/L 16-61 [facility] CO2 [Moles/Vol] 20.0 mmol/L 21.0-32.0 [facility] Globulin (S) [Mass/Vol] 3.1 g/dL 2.2-4.2 [facility] Urea nitrogen/Creatinine [Mass ratio] 26.7 mg/mg 10-20 [facility] Laboratory - Hematology and Cell countsOrdered By: Dr. Rodriguez on 04-28-2023 Erythrocyte distribution width (RBC) [Entitic vol] 45.1 fL 35.1-43.9 [facility] Erythrocyte distribution width (RBC) [Ratio] 16.5 % 11.6-14.6 [facility] MCH (RBC) [Entitic mass] 25.8 pg 27.0-32.0 [facility] MCHC Auto (RBC) [Mass/Vol]Or dered By: Dr. Rodriguez on 04-28-2023 MCHC (RBC) [Mass/Vol] 33.7 g/dL 32-36 [facility] No Panel InformationOrdered By: Dr. Rodriguez on 04-28-2023 Estimated Creatinine Clearance Calc 70.52 ml/min [facility] Estimated GFR (MDRD) Amer 113 mL/min >60 [facility] Comment on above: GFR Calc Estimated GFR (MDRD) Non-Af Amer 93 mL/min >60 [facility] Comment on above: Non- GFR Calc No Panel InformationOrdered By: Angela Rodriguez on 04-28-2023 25.8 pg 27.0-32.0 [facility] 16.5 % 11.6-14.6 [facility] 45.1 fl 35.1-43.9 [facility] 93 mL/min >60 [facility] 113 mL/min >60 [facility] 70.52 ml/min [facility] 26.7 RATIO 10-20 [facility] 3.1 g/dL 2.2-4.2 [facility] 48 U/L 45-117 [facility] 24 U/L 16-61 [facility] 20.0 mmol/L 21.0-32.0 [facility] Platelets bldOrdered By: Dr. Rodriguez on 04-28-2023 Platelets (Bld) [#/Vol] 105 10*3/uL 150-450 [facility] RBC morphologyOrdered By: Dr Stella Rodriguez on 04-28-2023 RBC morphology finding Nom (Bld) N CHROM NORMAL NORM C&C [facility] Review by pathologistOrdered By: Dr. Rodriguez on 04-28-2023 Pathologist review [place] (Unsp spec) [Interp] Reviewed [facility] Comment on above: Previous reported re sult: Samira rehman Edited by: RGOOD on 04/30/23:1329Microcytic RBCs.Mild Thrombocytopenia.Clinical correlation suggested.Jag Pickard D.O. 04/30/23 AMENDED REPORT 04/30/23 1329 PATH REV previously reported as: March foll Serum or plasma albumin deangelo urement (mass/volume)Ordered By: Dr. Rodriguez on 04-28-2023 Albumin [Mass/Vol] 3.0 g/dL 3.2-5.0 [facility] Serum or plasma albumin/glob ulin mass ratioOrdered By: Dr. Rodriguez on 04-28-2023 Albumin/Globulin [Mass ratio] 1.0 {ratio} 0.9-2.4 [facility] Serum or plasma calcium deangelo urement (mass/volume)Ordered By: Dr. Rodriguez on 04-28-2023 Calcium [Mass/Vol] 8.8 mg/dL 8.5-10.1 [facility] Serum or plasma creatinine m easurement (mass/volume)Ordered By: Dr. Rodriguez on 04-28-2023 Creatinine [Mass/Vol] 0.86 mg/dL 0.70-1.30 [facility] Comment on above: The validity of the calculated GFR & GFRAA in patients over 70 years has not been determined. Clinical correlation is essential. Serum or plasma urea nitroge n measurement (mass/volume)Ordered By: Dr. Rodriguez on 04-28-2023 Urea nitrogen [Mass/Vol] 23 mg/dL 7-18 [facility] Thin prep Papanicolaou smear with manual screeningOrdered By: Dr. Rodriguez on 04-28-2023 Thin prep Papanicolaou smear with manual screening 1+ [facility] Thin prep Papanicolaou smear with manual screening 23 U/L 15-37 [facility] Thin prep Papanicolaou smear with manual screening 9 5-15 [facility] Total cell countOrdered By: Dr. Rodriguez on 04-28-2023 Cells counted Molgen (Bld/Tiss) [#] 100 MANUAL DIFF [facility] Basophil percentageOrdered B y: Dr. Rodriguez on 04-08-2023 Basophils/100 WBC (Bld) 0.3 % 0-1 [facility] Eosinophils/100 WBC (Bld) 0.1 % 0-5 [facility] Basophil percentageOrdered B y: Angela Rodriguez on 04-08-2023 Basophils/100 WBC (Bld) 0.1 % 0-5 [facility] Blood lymphocytes/100 leukoc ytesOrdered By: Dr. Rodriguez on 04-08-2023 Lymphocytes/100 WBC (Bld) 2.9 % 19-41 [facility] Blood monocytes/100 leukocyt esOrdered By: Dr. Rodriguez on 04-08-2023 Monocytes/100 WBC (Bld) 4.7 % 0-10 [facility] Laboratory - Hematology and Cell countsOrdered By: Dr. Rodriguez on 04-08-2023 Immature granulocytes/100 WBC (Bld) 4.400 % 0.0-0.9 [facility] Comment on above: IG% - Immature Granu locytes (promyelocytes, myelocytes and metamyelocytes) > 1% indicates that a LEFT SHIFT is Present. Nucleated RBC/100 WBC (Bld) [Ratio] 0 % 0-5 [facility] No Panel InformationOrdered By: Angela Rodriguez on 04-08-2023 4.400 % 0.0-0.9 [facility] 0 % 0-5 [facility] Absolute lymphocyte countOrd ered By: Dr. Pratt on 03-19-2023 Lymphocytes Auto (Unsp spec) [#/Vol] 0.72 10*3/uL 0.83-4.51 [facility] Basophil percentageOrdered B y: Eduard Pratt on 03-19-2023 Basophil percentage 104 mg/dL 74-106 [facility] Basophil percentage 138 mmol/L 136-145 [facility] Basophil percentage 3.5 mmol/L 3.5-5.1 [facility] Basophil percentage 109 mmol/L 98-107 [facility] Basophil percentage 0.5 mmol/L 0.4-2.0 [facility] Basophils (Bld) [#/Vol] 5.9 10*3/uL 4.4-11.0 [facility] Basophils (Bld) [#/Vol] 4.3 10*3/uL 2.0-7.7 [facility] Basophils/100 WBC (Bld) 72.5 % 47-70 [facility] Basophils/100 WBC (Bld) 3.6 % 0-5 [facility] Basophil percentageOrdered B y: Dr. Pratt on 03-19-2023 Basophils/100 WBC (Bld) 0.7 % 0-1 [facility] Chloride [Moles/Vol] 109 mmol/L 98-107 [facility] Eosinophils/100 WBC (Bld) 3.6 % 0-5 [facility] Glucose [Mass/Vol] 104 mg/dL 74-106 [facility] Comment on above: Fasting Glucose resu lt from 100 to 125 mg/dL suggests IMPAIRED HOMEOSTASIS per A.D.A. criteria. Lactate [Moles/Vol] 0.5 mmol/L 0.4-2.0 [facility] Neutrophils (Bld) [#/Vol] 4.3 10*3/uL 2.0-7.7 [facility] Neutrophils/100 WBC (Bld) 72.5 % 47-70 [facility] Potassium [Moles/Vol] 3.5 mmol/L 3.5-5.1 [facility] Sodium [Moles/Vol] 138 mmol/L 136-145 [facility] WBC (Bld) [#/Vol] 5.9 10*3/uL 4.4-11.0 [facility] Blood erythrocytes count (nu mber/volume)Ordered By: Dr. Pratt on 03-19-2023 RBC (Bld) [#/Vol] 4.27 10*6/uL 4.6-6.2 [facility] Blood hemoglobin measurement (mass/volume)Ordered By: Dr. Pratt on 03-19-2023 Hemoglobin (Bld) [Mass/Vol] 10.8 g/dL 13.0-16.5 [facility] Blood lymphocytes/100 leukoc ytesOrdered By: Dr. Pratt on 03-19-2023 Lymphocytes/100 WBC (Bld) 12.2 % 19-41 [facility] Blood monocytes/100 leukocyt esOrdered By: Dr. Pratt on 03-19-2023 Monocytes/100 WBC (Bld) 9.8 % 0-10 [facility] Blood platelet mean volumeOr dered By: Dr. Pratt on 03-19-2023 Platelet mean volume (Bld) [Entitic vol] 8.5 fL 6.2-12.0 [facility] Determination of erythrocyte mean corpuscular volume (MCV)Ordered By: Dr. Pratt on 03-19-2023 MCV (RBC) [Entitic vol] 79.9 fL 80-94 [facility] Hematocrit Auto (Bld) [Volum e fraction]Ordered By: Dr. Pratt on 03-19-2023 Hematocrit (Bld) [Volume fraction] 34.1 % 40-54 [facility] Laboratory - Chemistry and C hemistry - challengeOrdered By: Dr. Pratt on 03-19-2023 CO2 [Moles/Vol] 22.0 mmol/L 21.0-32.0 [facility] Urea nitrogen/Creatinine [Mass ratio] 13.6 mg/mg 10-20 [facility] Laboratory - Hematology and Cell countsOrdered By: Dr. Pratt on 03-19-2023 Erythrocyte distribution width (RBC) [Entitic vol] 47.7 fL 35.1-43.9 [facility] Erythrocyte distribution width (RBC) [Ratio] 16.6 % 11.6-14.6 [facility] Immature granulocytes/100 WBC (Bld) 1.200 % 0.0-0.9 [facility] Comment on above: IG% - Immature Granu locytes (promyelocytes, myelocytes and metamyelocytes) > 1% indicates that a LEFT SHIFT is Present. MCH (RBC) [Entitic mass] 25.3 pg 27.0-32.0 [facility] Nucleated RBC/100 WBC (Bld) [Ratio] 0 % 0-5 [facility] MCHC Auto (RBC) [Mass/Vol]Or dered By: Dr. Pratt on 03-19-2023 MCHC (RBC) [Mass/Vol] 31.7 g/dL 32-36 [facility] No Panel InformationOrdered By: Dr. Pratt on 03-19-2023 Estimated Creatinine Clearance Calc 68.92 ml/min [facility] Estimated GFR (MDRD) Amer 110 mL/min >60 [facility] Comment on above: GFR Calc Estimated GFR (MDRD) Non-Af Amer 91 mL/min >60 [facility] Comment on above: Non- GFR Calc No Panel InformationOrdered By: Eduard Pratt on 03-19-2023 25.3 pg 27.0-32.0 [facility] 16.6 % 11.6-14.6 [facility] 47.7 fl 35.1-43.9 [facility] 1.200 % 0.0-0.9 [facility] 0 % 0-5 [facility] 91 mL/min >60 [facility] 110 mL/min >60 [facility] 68.92 ml/min [facility] 13.6 RATIO 10-20 [facility] 22.0 mmol/L 21.0-32.0 [facility] Platelets bldOrdered By: Dr. Pratt on 03-19-2023 Platelets (Bld) [#/Vol] 212 10*3/uL 150-450 [facility] Serum or plasma calcium deangelo urement (mass/volume)Ordered By: Dr. Pratt on 03-19-2023 Calcium [Mass/Vol] 8.8 mg/dL 8.5-10.1 [facility] Serum or plasma creatinine m easurement (mass/volume)Ordered By: Dr. Pratt on 03-19-2023 Creatinine [Mass/Vol] 0.88 mg/dL 0.70-1.30 [facility] Comment on above: The validity of the calculated GFR & GFRAA in patients over 70 years has not been determined. Clinical correlation is essential. Serum or plasma prolactin me asurement (mass/volume)Ordered By: Dr. Pratt on 03-19-2023 Prolactin [Mass/Vol] 16.4 ng/mL [facility] Comment on above: NORMAL REFERENCE RAN GES FEMALE NON- 2.2 - 30.3 ng/mL 8.1 - 347.6 ng/mL POST-MENOPAUSAL 0.7 - 31.5 ng/mL MALE 2.5 - 17.4 ng/mL Serum or plasma urea nitroge n measurement (mass/volume)Ordered By: Dr. Pratt on 03-19-2023 Urea nitrogen [Mass/Vol] 12 mg/dL 7-18 [facility] Thin prep Papanicolaou smear with manual screeningOrdered By: Dr. Pratt on 03-19-2023 Thin prep Papanicolaou smear with manual screening 7 5-15 [facility] Absolute lymphocyte countOrd ered By: Dr. Rodriguez on 03-17-2023 Lymphocytes Auto (Unsp spec) [#/Vol] 0.85 10*3/uL 0.83-4.51 [facility] Basophil percentageOrdered B y: Dr. Rodriguez on 03-17-2023 Basophil percentage 3.5 mg/dL 2.5-4.9 [facility] Basophils/100 WBC (Bld) 0.7 % 0-1 [facility] Bilirubin [Mass/Vol] 0.40 mg/dL 0.20-1.00 [facility] Comment on above: For patients on eltr ombopag therapy, use of Dimension [place] TBIL is not recommended. Chloride [Moles/Vol] 111 mmol/L 98-107 [facility] Eosinophils/100 WBC (Bld) 4.0 % 0-5 [facility] Glucose [Mass/Vol] 104 mg/dL 74-106 [facility] Comment on above: Fasting Glucose resu lt from 100 to 125 mg/dL suggests IMPAIRED HOMEOSTASIS per A.D.A. criteria. Neutrophils (Bld) [#/Vol] 2.6 10*3/uL 2.0-7.7 [facility] Neutrophils/100 WBC (Bld) 60.7 % 47-70 [facility] Potassium [Moles/Vol] 3.4 mmol/L 3.5-5.1 [facility] Protein [Mass/Vol] 5.9 g/dL 6.4-8.2 [facility] Sodium [Moles/Vol] 139 mmol/L 136-145 [facility] WBC (Bld) [#/Vol] 4.3 10*3/uL 4.4-11.0 [facility] Blood erythrocytes count (nu mber/volume)Ordered By: Dr. Rodriguez on 03-17-2023 RBC (Bld) [#/Vol] 4.20 10*6/uL 4.6-6.2 [facility] Blood hemoglobin measurement (mass/volume)Ordered By: Dr. Rodriguez on 03-17-2023 Hemoglobin (Bld) [Mass/Vol] 10.8 g/dL 13.0-16.5 [facility] Blood lymphocytes/100 leukoc ytesOrdered By: Dr. Rodriguez on 03-17-2023 Lymphocytes/100 WBC (Bld) 20.0 % 19-41 [facility] Blood monocytes/100 leukocyt esOrdered By: Dr. Rodriguez on 03-17-2023 Monocytes/100 WBC (Bld) 13.2 % 0-10 [facility] Blood platelet mean volumeOr dered By: Dr. Rodriguez on 03-17-2023 Platelet mean volume (Bld) [Entitic vol] 8.9 fL 6.2-12.0 [facility] Determination of erythrocyte mean corpuscular volume (MCV)Ordered By: Dr. Rodriguez on 03-17-2023 MCV (RBC) [Entitic vol] 81.4 fL 80-94 [facility] Hematocrit Auto (Bld) [Volum e fraction]Ordered By: Dr. Rodriguez on 03-17-2023 Hematocrit (Bld) [Volume fraction] 34.2 % 40-54 [facility] Laboratory - Chemistry and C hemistry - challengeOrdered By: Dr. Rodriguez on 03-17-2023 ALP [Catalytic activity/Vol] 52 U/L 45-117 [facility] ALT [Catalytic activity/Vol] 18 U/L 16-61 [facility] CO2 [Moles/Vol] 21.0 mmol/L 21.0-32.0 [facility] Globulin (S) [Mass/Vol] 2.9 g/dL 2.2-4.2 [facility] Urea nitrogen/Creatinine [Mass ratio] 12.9 mg/mg 10-20 [facility] Laboratory - Hematology and Cell countsOrdered By: Dr. Rodriguez on 03-17-2023 Erythrocyte distribution width (RBC) [Entitic vol] 49.3 fL 35.1-43.9 [facility] Erythrocyte distribution width (RBC) [Ratio] 16.8 % 11.6-14.6 [facility] Immature granulocytes/100 WBC (Bld) 1.400 % 0.0-0.9 [facility] Comment on above: IG% - Immature Granu locytes (promyelocytes, myelocytes and metamyelocytes) > 1% indicates that a LEFT SHIFT is Present. MCH (RBC) [Entitic mass] 25.7 pg 27.0-32.0 [facility] Nucleated RBC/100 [facility]) [facility] [Mass/Vol]Or dered By: Dr. Rodriguez on 03-17-2023 MCHC (RBC) [Mass/Vol] 31.6 g/dL 32-36 [facility] No Panel InformationOrdered By: Dr. Rodriguez on 03-17-2023 Estimated Creatinine Clearance Calc 71.35 ml/min [facility] Estimated GFR (MDRD) Amer 115 mL/min >60 [facility] Comment on above: GFR Calc Estimated GFR (MDRD) Non-Af Amer 95 mL/min >60 [facility] Comment on above: Non- GFR Calc Platelets bldOrdered By: Dr. Rodriguez on 03-17-2023 Platelets (Bld) [#/Vol] 198 10*3/uL 150-450 [facility] Serum or plasma albumin deangelo urement (mass/volume)Ordered By: Dr. Rodriguez on 03-17-2023 Albumin [Mass/Vol] 3.0 g/dL 3.2-5.0 [facility] Serum or plasma albumin/glob ulin mass ratioOrdered By: Dr. Rodriguez on 03-17-2023 Albumin/Globulin [Mass ratio] 1.0 {ratio} 0.9-2.4 [facility] Serum or plasma calcium deangelo urement (mass/volume)Ordered By: Dr. Rodriguez on 03-17-2023 Calcium [Mass/Vol] 8.6 mg/dL 8.5-10.1 [facility] Serum or plasma creatinine m easurement (mass/volume)Ordered By: Dr. Rodriguez on 03-17-2023 Creatinine [Mass/Vol] 0.85 mg/dL 0.70-1.30 [facility] Comment on above: The validity of the calculated GFR & GFRAA in patients over 70 years has not been determined. Clinical correlation is essential. Serum or plasma urea nitroge n measurement (mass/volume)Ordered By: Dr. Rodriguez on 03-17-2023 Urea nitrogen [Mass/Vol] 11 mg/dL 7-18 [facility] Thin prep Papanicolaou smear with manual screeningOrdered By: Dr. Rodriguez on 03-17-2023 Thin prep Papanicolaou smear with manual screening 17 U/L 15-37 [facility] Thin prep Papanicolaou smear with manual screening 7 5-15 [facility] Basophil percentageOrdered B y: Angela Rodriguez on 03-10-2023 Basophil percentage 204 U/L 87-241 [facility] Basophil percentageOrdered B y: Dr. Rodriguez on 03-10-2023 LDH [Catalytic activity/Vol] 204 U/L 87-241 [facility] Hemoglobin in reticulocytes (mass per reticulocyte)Ordered By: Dr. Rodriguez on 03-10-2023 Hemoglobin (Reticulocytes) [Entitic mass] 27.8 pg Low 30-35 [facility] Iron measurement (mass/mass) Ordered By: Dr. Rodriguez on 03-10-2023 Iron (Unsp spec) [Mass/Mass] 37 ug/dL 65-175 [facility] Laboratory - Chemistry and C hemistry - challengeOrdered By: Dr. Rodriguez on 03-10-2023 Free T4 [Mass/Vol] 1.26 ng/dL 0.76-1.46 [facility] No Panel InformationOrdered By: Dr. Rodriguez on 03-10-2023 Immature Reticulocyte Fraction 23.80 % High 3.00-15.90 [facility] Reticulocyte Count 2.36 % High 0.5-1.5 [facility] Thyroid Stimulating Hormone (TSH) 0.96 uIU/mL 0.358-3.74 [facility] Total Iron Binding Capacity 254 ug/dL 250-450 [facility] No Panel InformationOrdered By: Angela Rodriguez on 03-10-2023 2.36 % High 0.5-1.5 [facility] 23.80 % High 3.00-15.90 [facility] 0.96 uIU/mL 0.358-3.74 [facility] 254 ug/dL 250-450 [facility] 1.26 ng/dL 0.76-1.46 [facility] Serum or plasma cortisol samantha surement (mass/volume)Ordered By: Dr. Rodriguez on 03-10-2023 Cortisol [Mass/Vol] 18.90 ug/dL 3.44-22.45 [facility] Comment on above: Adult (AM) 5.27 - 22 .45 ug/dL Adult (PM) 3.44 - 16.76 ug/dLPlease note revised CORTISOL reference range effective 2020. Serum or plasma ferritin samantha surement (mass/volume)Ordered By: Dr. Rodriguez on 03-10-2023 Ferritin [Mass/Vol] 315 ng/mL 26-388 [facility] Serum or plasma iron saturat ion measurement (mass fraction)Ordered By: Dr. Rodriguez on 03-10-2023 Iron saturation [Mass fraction] 14.6 % 15.0-55.0 [facility] - Chemistry and C hemistry - challengeOrdered By: Dr. Rodriguez on 02-17-2023 Cobalamin (Vitamin B12) [Mass/Vol] 489 pg/mL [facility] No Panel InformationOrdered By: Angela Rodriguez on 02-17-2023 489 pg/mL [facility] Review by pathologistOrdered By: Dr. Rodriguez on 02-17-2023 Pathologist review [place] (Unsp spec) [Interp] Reviewed [facility] Comment on above: Pancytopenia.Leukope alfonso and Neutropenia.Microcytic anemia.Mild ThrombocytopeniaClinical correlation necessary.Duglas Martínez M.D. 02/19/23 Blood band neutrophil count as percentage of total leukocytesOrdered By: Dr. Rodriguez on 01-27-2023 Band form neutrophils/100 WBC (Bld) 2 % 0-5 [facility] Blood basophils/100 leukocyt esOrdered By: Dr. Rodriguez on 01-27-2023 Basophils/100 WBC (Bld) 1 % 0-1 [facility] Blood lymphocytes/100 leukoc ytesOrdered By: Dr. Rodriguez on 01-27-2023 Lymphocytes/100 WBC (Bld) 10 % 19-41 [facility] Blood metamyelocytes/100 meera kocytesOrdered By: Dr. Rodriguez on 01-27-2023 Metamyelocytes/100 WBC (Bld) 3 % 0-1 [facility] Blood monocytes/100 leukocyt esOrdered By: Dr. Rodriguez on 01-27-2023 Monocytes/100 WBC (Bld) 6 % 0-10 [facility] Blood platelet adequacy dete ction by light microscopyOrdered By: Dr. Rodriguez on 01-27-2023 Platelets LM Ql (Bld) ADEQUATE ADEQ [facility] Blood poikilocytosis detecti on by light microscopyOrdered By: Dr. Rodriguez on 01-27-2023 Poikilocytosis LM Ql (Bld) 1+ [facility] Blood segmented neutrophils/ [address]: [address] Rodriguez on 01-27-2023 Segmented neutrophils/100 WBC (Bld) 76 % 47-70 [facility] Laboratory - Hematology and Cell countsOrdered By: Dr. Rodriguez on 01-27-2023 Anisocytosis Ql (Bld) 1+ [facility] Myelocytes/100 WBC (Bld) 2 % 0-0 [facility] No Panel InformationOrdered By: Angela Rodriguez on 01-27-2023 2 % 0-0 [facility] 1+ [facility] Total cell countOrdered By: Dr. Rodriguez on 01-27-2023 Cells counted Molgen (Bld/Tiss) [#] 100 MANUAL DIFF [facility] Absolute lymphocyte countOrd ered By: Dr. Rodriguez on 01-06-2023 Lymphocytes Auto (Unsp spec) [#/Vol] 0.50 10*3/uL 0.83-4.51 [facility] Basophil percentageOrdered B y: Dr. Rodriguez on 01-06-2023 Basophil percentage Not Reportable [facility] Basophil percentage 3.4 mg/dL 2.5-4.9 [facility] Bilirubin [Mass/Vol] 0.60 mg/dL 0.20-1.00 [facility] Comment on above: For patients on eltr ombopag therapy, use of Dimension [place] TBIL is not recommended. Chloride [Moles/Vol] 101 mmol/L 98-107 [facility] Cholesterol [Mass/Vol] 156 mg/dL <200 [facility] Comment on above: <200 mg/dL Desirable 200-240 mg/dL Borderline >240 mg/dL High Risk Glucose [Mass/Vol] 186 mg/dL 74-106 [facility] Comment on above: Fasting Glucose resu lt greater than or equal to 126 mg/dL suggests DIABETES MELLITUS per A.D.A. criteria. Neutrophils (Bld) [#/Vol] 8.8 10*3/uL 2.0-7.7 [facility] Potassium [Moles/Vol] 4.1 mmol/L 3.5-5.1 [facility] Protein [Mass/Vol] 6.5 g/dL 6.4-8.2 [facility] Sodium [Moles/Vol] 133 mmol/L 136-145 [facility] Triglyceride [Mass/Vol] 81 mg/dL <199 [facility] Comment on above: The drugs N-Acetylcy steine and Metamizole may falsely depress this assay.Serum Triglycerides Reference Interval Normal <150 mg/dL Borderline high 150 - 199 mg/dL High 200 - 499 mg/dL Very High > or = 500 mg/dL WBC (Bld) [#/Vol] 10.0 10*3/uL 4.4-11.0 [facility] Basophil percentageOrdered B y: Angela Rodriguez on 01-06-2023 Basophil percentage 156 mg/dL <200 [facility] Basophil percentage 81 mg/dL <199 [facility] Blood erythrocytes count (nu mber/volume)Ordered By: Dr. Rodriguez on 01-06-2023 RBC (Bld) [#/Vol] 4.26 10*6/uL 4.6-6.2 [facility] Blood hemoglobin measurement (mass/volume)Ordered By: Dr. Rodriguez on 01-06-2023 Hemoglobin (Bld) [Mass/Vol] 11.2 g/dL 13.0-16.5 [facility] Blood lymphocytes/100 leukoc ytesOrdered By: Dr. Rodriguez on 01-06-2023 Lymphocytes/100 WBC (Bld) 5 % 19-41 [facility] Blood metamyelocytes/100 meera kocytesOrdered By: Dr. Rodriguez on 01-06-2023 Metamyelocytes/100 WBC (Bld) 2 % 0-1 [facility] Blood monocytes/100 leukocyt esOrdered By: Dr. Rodriguez on 01-06-2023 Monocytes/100 WBC (Bld) 5 % 0-10 [facility] Blood platelet adequacy dete ction by light microscopyOrdered By: Dr. Rodriguez on 01-06-2023 Platelets LM Ql (Bld) ADEQUATE ADEQ [facility] Blood platelet mean volumeOr dered By: Dr. Rodriguez on 01-06-2023 Platelet mean volume (Bld) [Entitic vol] 9.5 fL 6.2-12.0 [facility] Blood segmented neutrophils/ [address]: [address] Rodriguez on 01-06-2023 Segmented neutrophils/100 WBC (Bld) 88 % 47-70 [facility] Determination of erythrocyte mean corpuscular volume (MCV)Ordered By: Dr. Rodriguez on 01-06-2023 MCV (RBC) [Entitic vol] 81.0 fL 80-94 [facility] Hematocrit Auto (Bld) [Volum e fraction]Ordered By: Dr. Rodriguez on 01-06-2023 Hematocrit (Bld) [Volume fraction] 34.5 % 40-54 [facility] Laboratory - Chemistry and C hemistry - challengeOrdered By: Dr. Rodriguez on 01-06-2023 ALP [Catalytic activity/Vol] 41 U/L 45-117 [facility] ALT [Catalytic activity/Vol] 46 U/L 16-61 [facility] CO2 [Moles/Vol] 22.0 mmol/L 21.0-32.0 [facility] Globulin (S) [Mass/Vol] 3.1 g/dL 2.2-4.2 [facility] Urea nitrogen/Creatinine [Mass ratio] 27.0 mg/mg 10-20 [facility] Laboratory - Hematology and Cell countsOrdered By: Dr. Rodriguez on 01-06-2023 Erythrocyte distribution width (RBC) [Entitic vol] 51.3 fL 35.1-43.9 [facility] Erythrocyte distribution width (RBC) [Ratio] 17.4 % 11.6-14.6 [facility] MCH (RBC) [Entitic mass] 26.3 pg 27.0-32.0 [facility] MCHC Auto (RBC) [Mass/Vol]Or dered By: Dr. Rodriguez on 01-06-2023 MCHC (RBC) [Mass/Vol] 32.5 g/dL 32-36 [facility] No Panel InformationOrdered By: Dr. Rodriguez on 01-06-2023 Estimated Creatinine Clearance Calc 76.72 ml/min [facility] Estimated GFR (MDRD) Amer 120 mL/min >60 [facility] Comment on above: GFR Calc Estimated GFR (MDRD) Non-Af Amer 100 mL/min >60 [facility] Comment on above: Non- GFR Calc Platelets bldOrdered By: Dr. Rodriguez on 01-06-2023 Platelets (Bld) [#/Vol] 77 10*3/uL 150-450 [facility] RBC morphologyOrdered By: Dr Stella Rodriguez on 01-06-2023 RBC morphology finding Nom (Bld) NORM C+C NORMAL NORM C&C [facility] Review by pathologistOrdered By: Dr. Rodriguez on 01-06-2023 Pathologist review [place] (Unsp spec) [Interp] Samira rehman [facility] Pathologist review [place] (Unsp spec) [Interp] Reviewed [facility] Comment on above: Previous reported re sult: Samira rehman Edited by: RGOOD on 01/08/23:0915Neutrophilic leukocytosis.Normocytic anemia.Thrombocytopenia.Clinical correlation necessary.Duglas Martínez M.D. 01/08/23 AMENDED REPORT 01/08/23 0915 PATH REV previously reported as: Samira rehman Serum or plasma albumin deangelo urement (mass/volume)Ordered By: Dr. Rodriguez on 01-06-2023 Albumin [Mass/Vol] 3.4 g/dL 3.2-5.0 [facility] Serum or plasma albumin/glob ulin mass ratioOrdered By: Dr. Rodriguez on 01-06-2023 Albumin/Globulin [Mass ratio] 1.1 {ratio} 0.9-2.4 [facility] Serum or plasma calcium deangelo urement (mass/volume)Ordered By: Dr. Rodriguez on 01-06-2023 Calcium [Mass/Vol] 9.0 mg/dL 8.5-10.1 [facility] Serum or plasma cholesterol in HDL measurement (mass/volume)Ordered By: Dr. Rodriguez on 01-06-2023 Cholesterol in HDL [Mass/Vol] 78 mg/dL >40 [facility] Comment on above: The drugs N-Acetylcy steine and Metamizole may falsely depress this assay. Reference Range HDL <40 mg/dL Low HDL Cholesterol HDL >or= 60 mg/dL High HDL Cholesterol Serum or plasma cholesterol in VLDL measurement (mass/volume)Ordered By: Dr. Rodriguez on 01-06-2023 Cholesterol in VLDL [Mass/Vol] 16 mg/dL 5-40 [facility] Serum or plasma creatinine m easurement (mass/volume)Ordered By: Dr. Rodriguez on 01-06-2023 Creatinine [Mass/Vol] 0.82 mg/dL 0.70-1.30 [facility] Comment on above: The validity of the calculated GFR & GFRAA in patients over 70 years has not been determined. Clinical correlation is essential. Serum or plasma low density lipoprotein (LDL) cholesterol measurement (mass/volume)Ordered By: Dr. Rodriguez on 01-06-2023 Cholesterol in LDL [Mass/Vol] 62 mg/dL 0-130 [facility] Serum or plasma urea nitroge n measurement (mass/volume)Ordered By: Dr. Rodriguez on 01-06-2023 Urea nitrogen [Mass/Vol] 22 mg/dL 7-18 [facility] Thin prep Papanicolaou smear with manual screeningOrdered By: Dr. Rodriguez on 01-06-2023 Thin prep Papanicolaou smear with manual screening 17 U/L 15-37 [facility] Thin prep Papanicolaou smear with manual screening 10 5-15 [facility] Total cell countOrdered By: Dr. Rodriguez on 01-06-2023 Cells counted Molgen (Bld/Tiss) [#] 100 MANUAL DIFF [facility] Absolute lymphocyte countOrd ered By: Dr. Rodriguez on 12-16-2022 Lymphocytes Auto (Unsp spec) [#/Vol] 0.84 10*3/uL 0.83-4.51 [facility] Basophil percentageOrdered B y: Dr. Rodriguez on 12-16-2022 Basophil percentage 3.6 mg/dL 2.5-4.9 [facility] Basophils/100 WBC (Bld) 0.6 % 0-1 [facility] Bilirubin [Mass/Vol] 0.80 mg/dL 0.20-1.00 [facility] Comment on above: For patients on eltr ombopag therapy, use of Dimension [place] TBIL is not recommended. Chloride [Moles/Vol] 111 mmol/L 98-107 [facility] Eosinophils/100 WBC (Bld) 3.9 % 0-5 [facility] Glucose [Mass/Vol] 111 mg/dL 74-106 [facility] Comment on above: Fasting Glucose resu lt from 100 to 125 mg/dL suggests IMPAIRED HOMEOSTASIS per A.D.A. criteria. Neutrophils (Bld) [#/Vol] 3.4 10*3/uL 2.0-7.7 [facility] Neutrophils/100 WBC (Bld) 66.6 % 47-70 [facility] Potassium [Moles/Vol] 3.9 mmol/L 3.5-5.1 [facility] Protein [Mass/Vol] 6.9 g/dL 6.4-8.2 [facility] Sodium [Moles/Vol] 141 mmol/L 136-145 [facility] WBC (Bld) [#/Vol] 5.2 10*3/uL 4.4-11.0 [facility] Blood erythrocytes count (nu mber/volume)Ordered By: Dr. Rodriguez on 12-16-2022 RBC (Bld) [#/Vol] 3.80 10*6/uL 4.6-6.2 [facility] Blood hemoglobin measurement (mass/volume)Ordered By: Dr. Rodriguez on 12-16-2022 Hemoglobin (Bld) [Mass/Vol] 9.9 g/dL 13.0-16.5 [facility] Blood lymphocytes/100 leukoc ytesOrdered By: Dr. Rodriguez on 12-16-2022 Lymphocytes/100 WBC (Bld) 16.3 % 19-41 [facility] Blood monocytes/100 leukocyt esOrdered By: Dr. Rodriguez on 12-16-2022 Monocytes/100 WBC (Bld) 9.3 % 0-10 [facility] Blood platelet mean volumeOr dered By: Dr. Rodriguez on 12-16-2022 Platelet mean volume (Bld) [Entitic vol] 8.6 fL 6.2-12.0 [facility] Determination of erythrocyte mean corpuscular volume (MCV)Ordered By: Dr. Rodriguez on 12-16-2022 MCV (RBC) [Entitic vol] 82.1 fL 80-94 [facility] Hematocrit Auto (Bld) [Volum e fraction]Ordered By: Dr. Rodriguez on 12-16-2022 Hematocrit (Bld) [Volume fraction] 31.2 % 40-54 [facility] Iron measurement (mass/mass) Ordered By: Verónica Meadows on 12-16-2022 Iron (Unsp spec) [Mass/Mass] 52 ug/dL 65-175 [facility] Laboratory - Chemistry and C hemistry - challengeOrdered By: Dr. Rodriguez on 12-16-2022 ALP [Catalytic activity/Vol] 52 U/L 45-117 [facility] ALT [Catalytic activity/Vol] 21 U/L 16-61 [facility] CO2 [Moles/Vol] 22.0 mmol/L 21.0-32.0 [facility] Free T4 [Mass/Vol] 1.15 ng/dL 0.76-1.46 [facility] Globulin (S) [Mass/Vol] 3.4 g/dL 2.2-4.2 [facility] Urea nitrogen/Creatinine [Mass ratio] 11.9 mg/mg 10-20 [facility] Laboratory - Hematology and Cell countsOrdered By: Dr. Rodriguez on 12-16-2022 Erythrocyte distribution width (RBC) [Entitic vol] 50.4 fL 35.1-43.9 [facility] Erythrocyte distribution width (RBC) [Ratio] 17.1 % 11.6-14.6 [facility] Immature granulocytes/100 WBC (Bld) 3.300 % 0.0-0.9 [facility] Comment on above: IG% - Immature Granu locytes (promyelocytes, myelocytes and metamyelocytes) > 1% indicates that a LEFT SHIFT is Present. MCH (RBC) [Entitic mass] 26.1 pg 27.0-32.0 [facility] Nucleated RBC/100 WBC (Bld) [Ratio] 0 % 0-5 [facility] MCHC Auto (RBC) [Mass/Vol]Or dered By: Dr. Rodriguez on 12-16-2022 MCHC (RBC) [Mass/Vol] 31.7 g/dL 32-36 [facility] No Panel InformationOrdered By: Dr. Rodriguez on 12-16-2022 Estimated Creatinine Clearance Calc 57.72 ml/min [facility] Estimated GFR (MDRD) Amer 86 mL/min >60 [facility] Comment on above: GFR Calc Estimated GFR (MDRD) Non-Af Amer 71 mL/min >60 [facility] Comment on above: Non- GFR Calc Thyroid Stimulating Hormone (TSH) 1.01 uIU/mL 0.358-3.74 [facility] No Panel InformationOrdered By: Verónica Meadows on 12-16-2022 Total Iron Binding Capacity 325 ug/dL 250-450 [facility] Platelets bldOrdered By: Dr. Rodriguez on 12-16-2022 Platelets (Bld) [#/Vol] 248 10*3/uL 150-450 [facility] Serum or plasma albumin deangelo urement (mass/volume)Ordered By: Dr. Rodriguez on 12-16-2022 Albumin [Mass/Vol] 3.5 g/dL 3.2-5.0 [facility] Serum or plasma albumin/glob ulin mass ratioOrdered By: Dr. Rodriguez on 12-16-2022 Albumin/Globulin [Mass ratio] 1.0 {ratio} 0.9-2.4 [facility] Serum or plasma calcium deangelo urement (mass/volume)Ordered By: Dr. Rodriguez on 12-16-2022 Calcium [Mass/Vol] 9.3 mg/dL 8.5-10.1 [facility] Serum or plasma cortisol samantha surement (mass/volume)Ordered By: Dr. Rodriguez on 12-16-2022 Cortisol [Mass/Vol] 19.70 ug/dL 3.44-22.45 [facility] Comment on above: Adult (AM) 5.27 - 22 .45 ug/dL Adult (PM) 3.44 - 16.76 ug/dLPlease note revised CORTISOL reference range effective 2020. Serum or plasma creatinine m easurement (mass/volume)Ordered By: Dr. Rodriguez on 12-16-2022 Creatinine [Mass/Vol] 1.09 mg/dL 0.70-1.30 [facility] Comment on above: The validity of the calculated GFR & GFRAA in patients over 70 years has not been determined. Clinical correlation is essential. Serum or plasma ferritin samantha surement (mass/volume)Ordered By: Verónica Meadows on 12-16-2022 Ferritin [Mass/Vol] 105 ng/mL 26-388 [facility] Serum or plasma iron saturat ion measurement (mass fraction)Ordered By: Verónica Meadows on 12-16-2022 Iron saturation [Mass fraction] 16.0 % 15.0-55.0 [facility] Serum or plasma urea nitroge n measurement (mass/volume)Ordered By: Dr. Rodriguez on 12-16-2022 Urea nitrogen [Mass/Vol] 13 mg/dL 7-18 [facility] Thin prep Papanicolaou smear with manual screeningOrdered By: Dr. Rodriguez on 12-16-2022 Thin prep Papanicolaou smear with manual screening 19 U/L 15-37 [facility] Thin prep Papanicolaou smear with manual screening 8 5-15 [facility] Blood band neutrophil count as percentage of total leukocytesOrdered By: Dr. Rodriguez on 11-25-2022 Band form neutrophils/100 WBC (Bld) 1 % 0-5 [facility] Blood basophils/100 leukocyt esOrdered By: Dr. Rodriguez on 11-25-2022 Basophils/100 WBC (Bld) 1 % 0-1 [facility] Blood lymphocytes/100 leukoc ytesOrdered By: Dr. Rodriguez on 11-25-2022 Lymphocytes/100 WBC (Bld) 3 % 19-41 [facility] Blood manual differential co mment interpretation (narrative result)Ordered By: Dr. Rodriguez on 11-25-2022 Manual differential comment [place] (Bld) [Interp] COMMENT [facility] Comment on above: LYMPHOPENIA Blood metamyelocytes/100 meera kocytesOrdered By: Dr. Rodriguez on 11-25-2022 Metamyelocytes/100 WBC (Bld) 2 % 0-1 [facility] Blood monocytes/100 leukocyt esOrdered By: Dr. Rodriguez on 11-25-2022 Monocytes/100 WBC (Bld) 1 % 0-10 [facility] Blood platelet adequacy dete ction by light microscopyOrdered By: Dr. Rodriguez on 11-25-2022 Platelets LM Ql (Bld) ADEQUATE ADEQ [facility] Blood segmented neutrophils/ [address]: [address] Rodriguez on 11-25-2022 Segmented neutrophils/100 WBC (Bld) 85 % 47-70 [facility] Laboratory - Hematology and Cell countsOrdered By: Dr. Rodriguez on 11-25-2022 Myelocytes/100 WBC (Bld) 7 % 0-0 [facility] No Panel InformationOrdered By: Dr. Rodriguez on 11-25-2022 Reactive Lymphocytes 9.0 [facility] No Panel InformationOrdered By: Angela Rodriguez on 11-25-2022 9.0 [facility] RBC morphologyOrdered By: Dr Stella Rodriguez on 11-25-2022 RBC morphology finding Nom (Bld) NORM C+C NORMAL NORM C&C [facility] Review by pathologistOrdered By: Dr. Rodriguez on 11-25-2022 Pathologist review [place] (Unsp spec) [Interp] Reviewed [facility] Comment on above: Previous reported re sult: March ori Edited by: RGOOD on 11/26/22:1003Neutrophilic left shift.Normocytic anemia.Clinical correlation necessary.Duglas Martínez M.D. 11/26/22 AMENDED REPORT 11/26/22 1003 PATH REV previously reported as: Samira rehman Total cell countOrdered By: Dr. Rodriguez on 11-25-2022 Cells counted Molgen (Bld/Tiss) [#] 100 MANUAL DIFF [facility] Microbial respiratory cultur eOrdered By: Dr. Cat on 11-22-2022 Bacteria identified Respiratory culture Nom (Unsp spec) [facility] Absolute lymphocyte countOrd ered By: Dr. Cat on 11-20-2022 Lymphocytes Auto (Unsp spec) [#/Vol] 0.26 10*3/uL 0.83-4.51 [facility] Basophil percentageOrdered B y: Dr. Cat on 11-20-2022 Basophil percentage Not Reportable [facility] Chloride [Moles/Vol] 112 mmol/L 98-107 [facility] Glucose [Mass/Vol] 165 mg/dL 74-106 [facility] Comment on above: Fasting Glucose resu lt greater than or equal to 126 mg/dL suggests DIABETES MELLITUS per A.D.A. criteria. Neutrophils (Bld) [#/Vol] 2.7 10*3/uL 2.0-7.7 [facility] Potassium [Moles/Vol] 3.6 mmol/L 3.5-5.1 [facility] Sodium [Moles/Vol] 140 mmol/L 136-145 [facility] WBC (Bld) [#/Vol] 3.2 10*3/uL 4.4-11.0 [facility] Blood band neutrophil count as percentage of total leukocytesOrdered By: Dr. Cat on 11-20-2022 Band form neutrophils/100 WBC (Bld) 6 % 0-5 [facility] Blood erythrocytes count (nu mber/volume)Ordered By: Dr. Cat on 11-20-2022 RBC (Bld) [#/Vol] 3.56 10*6/uL 4.6-6.2 [facility] Blood hemoglobin measurement (mass/volume)Ordered By: Dr. Cat on 11-20-2022 Hemoglobin (Bld) [Mass/Vol] 9.6 g/dL 13.0-16.5 [facility] Blood lymphocytes/100 leukoc ytesOrdered By: Dr. Cat on 11-20-2022 Lymphocytes/100 WBC (Bld) 8 % 19-41 [facility] Blood metamyelocytes/100 meera kocytesOrdered By: Dr. Cat on 11-20-2022 Metamyelocytes/100 WBC (Bld) 2 % 0-1 [facility] Blood monocytes/100 leukocyt esOrdered By: Dr. Cat on 11-20-2022 Monocytes/100 WBC (Bld) 5 % 0-10 [facility] Blood platelet adequacy dete ction by light microscopyOrdered By: Dr. Cat on 11-20-2022 Platelets LM Ql (Bld) ADEQUATE ADEQ [facility] Blood platelet mean volumeOr dered By: Dr. Cat on 11-20-2022 Platelet mean volume (Bld) [Entitic vol] 8.8 fL 6.2-12.0 [facility] Blood segmented neutrophils/ [address]: [address] Cat on 11-20-2022 Segmented neutrophils/100 WBC (Bld) 77 % 47-70 [facility] Determination of erythrocyte mean corpuscular volume (MCV)Ordered By: Dr. Cat on 11-20-2022 MCV (RBC) [Entitic vol] 78.1 fL 80-94 [facility] Gram stain for investigation of transfusion reactionOrdered By: Dr. Cat on 11-20-2022 Microscopic observation Gram stain Nom (Unsp spec) [facility] Hematocrit Auto (Bld) [Volum e fraction]Ordered By: Dr. Cat on 11-20-2022 Hematocrit (Bld) [Volume fraction] 27.8 % 40-54 [facility] Laboratory - Chemistry and C hemistry - challengeOrdered By: Dr. Cat on 11-20-2022 CO2 [Moles/Vol] 20.0 mmol/L 21.0-32.0 [facility] Urea nitrogen/Creatinine [Mass ratio] 25.9 mg/mg 10-20 [facility] Laboratory - Hematology and Cell countsOrdered By: Dr. Cat on 11-20-2022 Erythrocyte distribution width (RBC) [Entitic vol] 42.3 fL 35.1-43.9 [facility] Erythrocyte distribution width (RBC) [Ratio] 14.8 % 11.6-14.6 [facility] MCH (RBC) [Entitic mass] 27.0 pg 27.0-32.0 [facility] Myelocytes/100 WBC (Bld) 2 % 0-0 [facility] Laboratory - Microbiology an d Antimicrobial susceptibilityOrdered By: Dr. Kaiser on 11-20-2022 Respiratory pathogens DNA and RNA 12b panel DAVID+probe (Unsp spec) [facility] MCHC Auto (RBC) [Mass/Vol]Or dered By: Dr. Cat on 11-20-2022 MCHC (RBC) [Mass/Vol] 34.5 g/dL 32-36 [facility] No Panel InformationOrdered By: Dr. Cat on 11-20-2022 Estimated Creatinine Clearance Calc 67.65 ml/min [facility] Estimated GFR (MDRD) Amer 104 mL/min >60 [facility] Comment on above: GFR Calc Estimated GFR (MDRD) Non-Af Amer 86 mL/min >60 [facility] Comment on above: Non- GFR Calc Streptococcus pneumoniae Antigen (M [facility] Platelets bldOrdered By: Dr. Cat on 11-20-2022 Platelets (Bld) [#/Vol] 230 10*3/uL 150-450 [facility] RBC morphologyOrdered By: Dr Stella Cat on 11-20-2022 RBC morphology finding Nom (Bld) NORM C+C NORMAL NORM C&C [facility] Review by pathologistOrdered By: Dr. Cat on 11-20-2022 Pathologist review [place] (Unsp spec) [Interp] Reviewed [facility] Comment on above: Previous reported re sult: Samira rehman Edited by: RGODIANDRA on 11/21/22:1146Leukopenia.Microcytic anemia.Clinical correlation necessary.Duglas Martínez M.D. 11/21/22 AMENDED REPORT 11/21/22 1146 PATH REV previously reported as: Samira rehman Serum or plasma calcium deangelo urement (mass/volume)Ordered By: Dr. Cat on 11-20-2022 Calcium [Mass/Vol] 8.5 mg/dL 8.5-10.1 [facility] Serum or plasma creatinine m easurement (mass/volume)Ordered By: Dr. Cat on 11-20-2022 Creatinine [Mass/Vol] 0.93 mg/dL 0.70-1.30 [facility] Comment on above: The validity of the calculated GFR & GFRAA in patients over 70 years has not been determined. Clinical correlation is essential. Serum or plasma urea nitroge n measurement (mass/volume)Ordered By: Dr. Cat on 11-20-2022 Urea nitrogen [Mass/Vol] 24 mg/dL 7-18 [facility] Thin prep Papanicolaou smear with manual screeningOrdered By: Dr. Cat on 11-20-2022 Thin prep Papanicolaou smear with manual screening 1+ [facility] Thin prep Papanicolaou smear with manual screening 8 5-15 [facility] Total cell countOrdered By: Dr. Cat on 11-20-2022 Cells counted Molgen (Bld/Tiss) [#] 100 MANUAL DIFF [facility] Urine Legionella pneumophila antigen detectionOrdered By: Dr. Cat on 11-20-2022 L. pneumophila Ag Ql (U) [facility] Absolute lymphocyte counton 11-19-2022 Lymphocytes Auto (Unsp spec) [#/Vol] 0.50 10*3/uL 0.83-4.51 [facility] Work Phone: Basophil percentageon 2022 Basophil percentage Not Reportable [facility] Work [facility]: Chloride [Moles/Vol] 107 mmol/L 98-107 [facility] Work Phone: Glucose [Mass/Vol] 154 mg/dL 74-106 [facility] Work Phone: Comment on above: Fasting Glucose resu lt greater than or equal to 126 mg/dL suggests DIABETES MELLITUS per A.D.A. criteria. Neutrophils (Bld) [#/Vol] 3.1 10*3/uL 2.0-7.7 [facility] Work Phone: Potassium [Moles/Vol] 3.7 mmol/L 3.5-5.1 [facility] Work Phone: Sodium [Moles/Vol] 136 mmol/L 136-145 [facility] Work Phone: WBC (Bld) [#/Vol] 3.8 10*3/uL 4.4-11.0 [facility] Work Phone: Blood band neutrophil count as percentage of total leukocyteson 11-19-2022 Band form neutrophils/100 WBC (Bld) 2 % 0-5 [facility] Work Phone: Blood erythrocytes count (nu mber/volume)on 11-19-2022 RBC (Bld) [#/Vol] 3.80 10*6/uL 4.6-6.2 [facility] Work Phone: Blood hemoglobin measurement (mass/volume)on 11-19-2022 Hemoglobin (Bld) [Mass/Vol] 9.8 g/dL 13.0-16.5 [facility] Work Phone: Blood lymphocytes/100 leukoc yteson 11-19-2022 Lymphocytes/100 WBC (Bld) 13 % 19-41 [facility] Work Phone: Blood metamyelocytes/100 meera kocyteson 11-19-2022 Metamyelocytes/100 WBC (Bld) 1 % 0-1 [facility] Work Phone: Blood monocytes/100 leukocyt eson 11-19-2022 Monocytes/100 WBC (Bld) 4 % 0-10 [facility] Work Phone: Blood platelet mean volumeon 11-19-2022 Platelet mean volume (Bld) [Entitic vol] 8.8 fL 6.2-12.0 [facility] Work Phone: Blood segmented neutrophils/ 100 leukocyteson 11-19-2022 Segmented neutrophils/100 WBC (Bld) 79 % 47-70 [facility] Work Phone: Determination of erythrocyte mean corpuscular volume (MCV)on 11-19-2022 MCV (RBC) [Entitic vol] 78.2 fL 80-94 [facility] Work Phone: Hematocrit Auto (Bld) [Volum e fraction]on 11-19-2022 Hematocrit (Bld) [Volume fraction] 29.7 % 40-54 [facility] Work Phone: Laboratory - Chemistry and C hemistry - challengeon 11-19-2022 CO2 [Moles/Vol] 20.0 mmol/L 21.0-32.0 [facility] Work Phone: Urea nitrogen/Creatinine [Mass ratio] 27.1 mg/mg 10-20 [facility] Work Phone: Laboratory - Chemistry and C hemistry - challengeOrdered By: Dr. Menon on 11-19-2022 Natriuretic peptide B (Bld) [Mass/Vol] 33.0 pg/mL 0-100 [facility] Laboratory - Hematology and Cell countson 11-19-2022 Erythrocyte distribution width (RBC) [Entitic vol] 41.7 fL 35.1-43.9 [facility] Work Phone: Erythrocyte distribution width (RBC) [Ratio] 14.9 % 11.6-14.6 [facility] Work Phone: MCH (RBC) [Entitic mass] 25.8 pg 27.0-32.0 [facility] Work Phone: Myelocytes/100 WBC (Bld) 1 % 0-0 [facility] Work Phone: MCHC Auto (RBC) [Mass/Vol]on 11-19-2022 MCHC (RBC) [Mass/Vol] 33.0 g/dL 32-36 [facility] Work Phone: No Panel Informationon 11-19 Estimated Creatinine Clearance Calc 58.80 ml/min [facility] Work Phone: Estimated GFR (MDRD) Amer 88 mL/min >60 [facility] Work Phone: Comment on above: GFR Calc Estimated GFR (MDRD) Non-Af Amer 73 mL/min >60 [facility] Work Phone: Comment on above: Non- GFR Calc No Panel InformationOrdered By: Dr. Menon on 11-19-2022 Troponin I High Sensitivity 5 pg/mL 3.0-78.0 [facility] Comment on above: Please Note: [place] t Units and Gender Specific Reference Ranges. For more information see Policy Stat Procedure [place] High Sensitivity Troponin (TNIH) and attachments. Platelets bldon 11-19-2022 Platelets (Bld) [#/Vol] 237 10*3/uL 150-450 [facility] Work Phone: Review by pathologiston 11-09 Pathologist review [place] (Unsp spec) [Interp] March [facility] Work Phone: Serum or plasma calcium deangelo urement (mass/volume)on 11-19-2022 Calcium [Mass/Vol] 8.8 mg/dL 8.5-10.1 [facility] Work Phone: Serum or plasma creatinine m easurement (mass/volume)on 11-19-2022 Creatinine [Mass/Vol] 1.07 mg/dL 0.70-1.30 [facility] Work Phone: Comment on above: The validity of the calculated GFR & GFRAA in patients over 70 years has not been determined. Clinical correlation is essential. Serum or plasma urea nitroge n measurement (mass/volume)on 11-19-2022 Urea nitrogen [Mass/Vol] 29 mg/dL 7-18 [facility] Work Phone: Thin prep Papanicolaou smear with manual screeningon 11-19-2022 Thin prep Papanicolaou smear with manual screening 9 5-15 [facility] Work Phone: Total cell counton 3 Cells counted Molgen (Bld/Tiss) [#] 100 MANUAL DIFF [facility] Work Phone: Absolute lymphocyte counton 11-13-2022 Lymphocytes Auto (Unsp spec) [#/Vol] 0.80 10*3/uL 0.83-4.51 [facility] Work Phone: Basophil percentageon 2022 Basophil percentage Not Reportable [facility] Work Phone: Neutrophils (Bld) [#/Vol] 2.3 10*3/uL 2.0-7.7 [facility] Work Phone: WBC (Bld) [#/Vol] 3.4 10*3/uL 4.4-11.0 [facility] Work Phone: Blood band neutrophil count as percentage of total leukocyteson 11-13-2022 Band form neutrophils/100 WBC (Bld) 1 % 0- [facility] Work Phone: Blood eosinophils/100 leukoc ytesOrdered By: Verónica Meadows on 11-13-2022 Eosinophils/100 WBC (Bld) 1 % 0-5 [facility] Blood erythrocytes count (nu mber/volume)on 11-13-2022 RBC (Bld) [#/Vol] 4.47 10*6/uL 4.6-6.2 [facility] Blood hemoglobin measurement (mass/volume)on 11-13-2022 Hemoglobin (Bld) [Mass/Vol] 12.1 g/dL 13.0-16.5 [facility] Work Phone: Blood lymphocytes/100 leukoc yteson 11-13-2022 Lymphocytes/100 WBC (Bld) 23 % 19-41 [facility] Work Phone: Blood monocytes/100 leukocyt eson 11-13-2022 Monocytes/100 WBC (Bld) 7 % 0-10 [facility] Work Phone: Blood platelet adequacy dete ction by light microscopyon 11-13-2022 Platelets LM Ql (Bld) SLT DEC ADEQ [facility] Work Phone: Blood platelet mean volumeon 11-13-2022 Platelet mean volume (Bld) [Entitic vol] 8.8 fL 6.2-12.0 [facility] Work Phone: Blood segmented neutrophils/ 100 leukocyteson 11-13-2022 Segmented neutrophils/100 WBC (Bld) 66 % 47-70 [facility] Work Phone: Determination of erythrocyte mean corpuscular volume (MCV)on 11-13-2022 MCV (RBC) [Entitic vol] 80.3 fL 80-94 [facility] Work Phone: Hematocrit Auto (Bld) [Volum e fraction]on 11-13-2022 Hematocrit (Bld) [Volume fraction] 35.9 % 40-54 [facility] Work Phone: Laboratory - Hematology and Cell countson 11-13-2022 Erythrocyte distribution width (RBC) [Entitic vol] 45.4 fL 35.1-43.9 [facility] Work Phone: Erythrocyte distribution width (RBC) [Ratio] 15.6 % 11.6-14.6 [facility] Work Phone: MCH (RBC) [Entitic mass] 27.1 pg 27.0-32.0 [facility] Work Phone: Myelocytes/100 WBC (Bld) 2 % 0-0 [facility] Work Phone: MCHC Auto (RBC) [Mass/Vol]on 11-13-2022 MCHC (RBC) [Mass/Vol] 33.7 g/dL 32-36 [facility] Work Phone: Platelets bldon 11-13-2022 Platelets (Bld) [#/Vol] 149 10*3/uL 150-450 [facility] Work Phone: RBC morphologyon 11-13-2022 RBC morphology finding Nom (Bld) NORM C+C NORMAL NORM C&C [facility] Work Phone: Review by pathologiston Pathologist review [place] (Unsp spec) [Interp] Reviewed [facility] Work Phone: Comment on above: Previous reported re sult: Samira rehman Edited by: RGODIANDRA on 11/17/22:1057Leukopenia.Clinical correlation necessary.Duglas Martínez M.D. 11/17/22 AMENDED REPORT 11/17/22 1057 PATH REV previously reported as: Samira rehman Total cell counton 3 Cells counted Molgen (Bld/Tiss) [#] 100 MANUAL DIFF [facility] Work Phone: Basophil percentageon 2021 Basophil percentage 3.5 mg/dL 2.5-4.9 [facility] Work Phone: Basophils/100 WBC (Bld) 0.2 % 0-1 [facility] Work Phone: Bilirubin [Mass/Vol] 0.60 mg/dL 0.20-1.00 [facility] Work Phone: Comment on above: For patients on eltr ombopag therapy, use of Dimension [place] TBIL is not recommended. Chloride [Moles/Vol] 102 mmol/L 98-107 [facility] Work Phone: Eosinophils/100 WBC (Bld) 0.0 % 0-5 [facility] Work Phone: Glucose [Mass/Vol] 120 mg/dL 74-106 [facility] Work Phone: Comment on above: Fasting Glucose resu lt from 100 to 125 mg/dL suggests IMPAIRED HOMEOSTASIS per A.D.A. criteria. Potassium [Moles/Vol] 3.8 mmol/L 3.5-5.1 [facility] Work Phone: Protein [Mass/Vol] 6.1 g/dL 6.4-8.2 [facility] Work Phone: Sodium [Moles/Vol] 134 mmol/L 136-145 [facility] Work Phone: Blood lymphocytes/100 leukoc yteson 11-04-2022 Lymphocytes/100 WBC (Bld) 4.8 % 19-41 [facility] Work Phone: Blood manual differential co mment interpretation (narrative result)on 11-04-2022 Manual differential comment [place] (Bld) [Interp] SCANNED [facility] Work Phone: Blood monocytes/100 leukocyt eson 11-04-2022 Monocytes/100 WBC (Bld) 3.7 % 0-10 [facility] Work Phone: Laboratory - Chemistry and C hemistry - challengeon 11-04-2022 ALP [Catalytic activity/Vol] 47 U/L 45-117 [facility] Work Phone: ALT [Catalytic activity/Vol] 42 U/L 16-61 [facility] Work Phone: CO2 [Moles/Vol] 24.0 mmol/L 21.0-32.0 [facility] Work Phone: Globulin (S) [Mass/Vol] 3.0 g/dL 2.2-4.2 [facility] Work Phone: Urea nitrogen/Creatinine [Mass ratio] 28.3 mg/mg 10-20 [facility] Work Phone: Laboratory - Hematology and Cell countson 11-04-2022 Immature granulocytes/100 WBC (Bld) 2.800 % 0.0-0.9 [facility] Work Phone: Comment on above: IG% - Immature Granu locytes (promyelocytes, myelocytes and metamyelocytes) > 1% indicates that a LEFT SHIFT is Present. Nucleated RBC/100 WBC (Bld) [Ratio] 0 % 0-5 [facility] Work Phone: No Panel Informationon 11-04 Estimated Creatinine Clearance Calc 68.38 ml/min [facility] Work Phone: Estimated GFR (MDRD) Amer 105 mL/min >60 [facility] Work Phone: Comment on above: GFR Calc Estimated GFR (MDRD) Non-Af Amer 87 mL/min >60 [facility] Work Phone: Comment on above: Non- GFR Calc Serum or plasma albumin deangelo urement (mass/volume)on 11-04-2022 Albumin [Mass/Vol] 3.1 g/dL 3.2-5.0 [facility] Work Phone: Serum or plasma albumin/glob ulin mass ratioon 11-04-2022 Albumin/Globulin [Mass ratio] 1.0 {ratio} 0.9-2.4 [facility] Work Phone: Serum or plasma calcium deangelo urement (mass/volume)on 11-04-2022 Calcium [Mass/Vol] 8.4 mg/dL 8.5-10.1 [facility] Work Phone: Serum or plasma creatinine m easurement (mass/volume)on 11-04-2022 Creatinine [Mass/Vol] 0.92 mg/dL 0.70-1.30 [facility] Work Phone: Comment on above: The validity of the calculated GFR & GFRAA in patients over 70 years has not been determined. Clinical correlation is essential. Serum or plasma urea nitroge n measurement (mass/volume)on 11-04-2022 Urea nitrogen [Mass/Vol] 26 mg/dL 7-18 [facility] Work Phone: [phone] Thin prep Papanicolaou smear with manual screeningon 11-04-2022 Thin prep Papanicolaou smear with manual screening 17 U/L 15-37 [facility] Work Phone: Thin prep Papanicolaou smear with manual screening 8 5-15 [facility] Work Phone: Absolute lymphocyte counton 10-14-2022 Lymphocytes Auto (Unsp spec) [#/Vol] 1.05 10*3/uL 0.83-4.51 [facility] Work Phone: Basophil percentageon 2021 Basophil percentage 3.7 mg/dL 2.5-4.9 [facility] Work Phone: Basophils/100 WBC (Bld) 0.8 % 0-1 [facility] Work Phone: [phone] Bilirubin [Mass/Vol] 0.40 mg/dL 0.20-1.00 [facility] Work Phone: Comment on above: For patients on eltr ombopag therapy, use of Dimension [place] TBIL is not recommended. Chloride [Moles/Vol] 108 mmol/L 98-107 [facility] Work Phone: Eosinophils/100 WBC (Bld) 6.7 % 0-5 [facility] Work Phone: Glucose [Mass/Vol] 108 mg/dL 74-106 [facility] Work Phone: Comment on above: Fasting Glucose resu lt from 100 to 125 mg/dL suggests IMPAIRED HOMEOSTASIS per A.D.A. criteria. Neutrophils (Bld) [#/Vol] 3.1 10*3/uL 2.0-7.7 [facility] Work Phone: Neutrophils/100 WBC (Bld) 59.3 % 47-70 [facility] Work Phone: Potassium [Moles/Vol] 3.9 mmol/L 3.5-5.1 [facility] Work Phone: Protein [Mass/Vol] 6.4 g/dL 6.4-8.2 [facility] Work Phone: Sodium [Moles/Vol] 140 mmol/L 136-145 [facility] Work Phone: WBC (Bld) [#/Vol] 5.2 10*3/uL 4.4-11.0 [facility] Work Phone: [phone] Blood erythrocytes count (nu mber/volume)on 10-14-2022 RBC (Bld) [#/Vol] 4.96 10*6/uL 4.6-6.2 [facility] Work Phone: [phone] Blood hemoglobin measurement (mass/volume)on 10-14-2022 Hemoglobin (Bld) [Mass/Vol] 13.4 g/dL 13.0-16.5 [facility] Work Phone: Blood lymphocytes/100 leukoc yteson 10-14-2022 Lymphocytes/100 WBC (Bld) 20.1 % 19-41 [facility] Work Phone: Blood monocytes/100 leukocyt eson 10-14-2022 Monocytes/100 WBC (Bld) 12.0 % 0-10 [facility] Work Phone: Blood platelet mean volumeon 10-14-2022 Platelet mean volume (Bld) [Entitic vol] 9.4 fL 6.2-12.0 [facility] Work Phone: Determination of erythrocyte mean corpuscular volume (MCV)on 10-14-2022 MCV (RBC) [Entitic vol] 80.4 fL 80-94 [facility] Work Phone: Hematocrit Auto (Bld) [Volum e fraction]on 10-14-2022 Hematocrit (Bld) [Volume fraction] 39.9 % 40-54 [facility] Work Phone: Laboratory - Chemistry and C hemistry - challengeon 10-14-2022 ALP [Catalytic activity/Vol] 50 U/L 45-117 [facility] Work Phone: [phone] ALT [Catalytic activity/Vol] 26 U/L 16-61 [facility] Work Phone: CO2 [Moles/Vol] 23.0 mmol/L 21.0-32.0 [facility] Work Phone: Free T4 [Mass/Vol] 1.11 ng/dL 0.76-1.46 [facility] Work Phone: Globulin (S) [Mass/Vol] 3.0 g/dL 2.2-4.2 [facility] Work Phone: Urea nitrogen/Creatinine [Mass ratio] 20.6 mg/mg 10-20 [facility] Work Phone: Laboratory - Hematology and Cell countson 10-14-2022 Erythrocyte distribution width (RBC) [Entitic vol] 44.1 fL 35.1-43.9 [facility] Work Phone: Erythrocyte distribution width (RBC) [Ratio] 15.2 % 11.6-14.6 [facility] Work Phone: Immature granulocytes/100 WBC (Bld) 1.100 % 0.0-0.9 [facility] Work Phone: Comment on above: IG% - Immature Granu locytes (promyelocytes, myelocytes and metamyelocytes) > 1% indicates that a LEFT SHIFT is Present. MCH (RBC) [Entitic mass] 27.0 pg 27.0-32.0 [facility] Work Phone: Nucleated RBC/100 WBC (Bld) [Ratio] 0 % 0-5 [facility] Work Phone: MCHC Auto (RBC) [Mass/Vol]on 10-14-2022 MCHC (RBC) [Mass/Vol] 33.6 g/dL 32-36 [facility] Work Phone: No Panel Informationon 10-14 Estimated Creatinine Clearance Calc 61.68 ml/min [facility] Work Phone: Estimated GFR (MDRD) Amer 93 mL/min >60 [facility] Work Phone: Comment on above: GFR Calc Estimated GFR (MDRD) Non-Af Amer 77 mL/min >60 [facility] Work Phone: Comment on above: Non- GFR Calc Thyroid Stimulating Hormone (TSH) 2.10 uIU/mL 0.358-3.74 [facility] Work Phone: Platelets bldon 10-14-2022 Platelets (Bld) [#/Vol] 169 10*3/uL 150-450 [facility] Work Phone: Serum or plasma albumin deangelo urement (mass/volume)on 10-14-2022 Albumin [Mass/Vol] 3.4 g/dL 3.2-5.0 [facility] Work Phone: Serum or plasma albumin/glob ulin mass ratioon 10-14-2022 Albumin/Globulin [Mass ratio] 1.1 {ratio} 0.9-2.4 [facility] Work Phone: Serum or plasma calcium deangeol urement (mass/volume)on 10-14-2022 Calcium [Mass/Vol] 8.5 mg/dL 8.5-10.1 [facility] Work Phone: Serum or plasma cortisol samantha surement (mass/volume)on 10-14-2022 Cortisol [Mass/Vol] 15.90 ug/dL 3.44-22.45 [facility] Work Phone: Comment on above: Adult (AM) 5.27 - 22 .45 ug/dL Adult (PM) 3.44 - 16.76 ug/dLPlease note revised CORTISOL reference range effective 2020. Serum or plasma creatinine m easurement (mass/volume)on 10-14-2022 Creatinine [Mass/Vol] 1.02 mg/dL 0.70-1.30 [facility] Work Phone: Comment on above: The validity of the calculated GFR & GFRAA in patients over 70 years has not been determined. Clinical correlation is essential. Serum or plasma urea nitroge n measurement (mass/volume)on 10-14-2022 Urea nitrogen [Mass/Vol] 21 mg/dL 7-18 [facility] Work Phone: Thin prep Papanicolaou smear with manual screeningon 10-14-2022 Thin prep Papanicolaou smear with manual screening 14 U/L 15-37 [facility] Work Phone: Thin prep Papanicolaou smear with manual screening 9 5-15 [facility] Work Phone: Absolute lymphocyte counton 09-02-2022 Lymphocytes Auto (Unsp spec) [#/Vol] 0.96 10*3/uL 0.83-4.51 [facility] Work Phone: Basophil percentageon 2021 Basophil percentage 3.2 mg/dL 2.5-4.9 [facility] Work Phone: Basophils/100 WBC (Bld) 1.0 % 0-1 [facility] Work Phone: Bilirubin [Mass/Vol] 0.30 mg/dL 0.20-1.00 [facility] Work Phone: Comment on above: For patients on eltr ombopag therapy, use of Dimension [place] TBIL is not recommended. Chloride [Moles/Vol] 113 mmol/L 98-107 [facility] Work Phone: Eosinophils/100 WBC (Bld) 8.0 % 0-5 [facility] Work Phone: Glucose [Mass/Vol] 110 mg/dL 74-106 [facility] Work Phone: [phone] Comment on above: Fasting Glucose resu lt from 100 to 125 mg/dL suggests IMPAIRED HOMEOSTASIS per A.D.A. criteria. Neutrophils (Bld) [#/Vol] 3.0 10*3/uL 2.0-7.7 [facility] Work Phone: Neutrophils/100 WBC (Bld) 57.9 % 47-70 [facility] Work Phone: Potassium [Moles/Vol] 3.6 mmol/L 3.5-5.1 [facility] Work Phone: Protein [Mass/Vol] 6.0 g/dL 6.4-8.2 [facility] Work Phone: Sodium [Moles/Vol] 141 mmol/L 136-145 [facility] Work Phone: WBC (Bld) [#/Vol] 5.1 10*3/uL 4.4-11.0 [facility] Work Phone: Blood erythrocytes count (nu mber/volume)on 09-02-2022 RBC (Bld) [#/Vol] 4.85 10*6/uL 4.6-6.2 [facility] Work Phone: Blood hemoglobin measurement (mass/volume)on 09-02-2022 Hemoglobin (Bld) [Mass/Vol] 12.6 g/dL 13.0-16.5 [facility] Work Phone: Blood lymphocytes/100 leukoc yteson 09-02-2022 Lymphocytes/100 WBC (Bld) 18.8 % 19-41 [facility] Work Phone: Blood monocytes/100 leukocyt eson 09-02-2022 Monocytes/100 WBC (Bld) 13.1 % 0-10 [facility] Work Phone: Blood platelet mean volumeon 09-02-2022 Platelet mean volume (Bld) [Entitic vol] 9.4 fL 6.2-12.0 [facility] Work Phone: Determination of erythrocyte mean corpuscular volume (MCV)on 09-02-2022 MCV (RBC) [Entitic vol] 79.6 fL 80-94 [facility] Work Phone: [phone] Hematocrit Auto (Bld) [Volum e fraction]on 09-02-2022 Hematocrit (Bld) [Volume fraction] 38.6 % 40-54 [facility] Work Phone: Laboratory - Chemistry and C hemistry - challengeon 09-02-2022 ALP [Catalytic activity/Vol] 50 U/L 45-117 [facility] Work Phone: ALT [Catalytic activity/Vol] 23 U/L 16-61 [facility] Work Phone: CO2 [Moles/Vol] 23.0 mmol/L 21.0-32.0 [facility] Work Phone: Globulin (S) [Mass/Vol] 2.9 g/dL 2.2-4.2 [facility] Work Phone: Urea nitrogen/Creatinine [Mass ratio] 16.0 mg/mg 10-20 [facility] Work Phone: Laboratory - Hematology and Cell countson 09-02-2022 Erythrocyte distribution width (RBC) [Entitic vol] 46.9 fL 35.1-43.9 [facility] Work Phone: Erythrocyte distribution width (RBC) [Ratio] 16.4 % 11.6-14.6 [facility] Work Phone: Immature granulocytes/100 WBC (Bld) 1.200 % 0.0-0.9 [facility] Work Phone: Comment on above: IG% - Immature Granu locytes (promyelocytes, myelocytes and metamyelocytes) > 1% indicates that a LEFT SHIFT is Present. MCH (RBC) [Entitic mass] 26.0 pg 27.0-32.0 [facility] Work Phone: Nucleated RBC/100 WBC (Bld) [Ratio] 0 % 0-5 [facility] Work Phone: MCHC Auto (RBC) [Mass/Vol]on 09-02-2022 MCHC (RBC) [Mass/Vol] 32.6 g/dL 32-36 [facility] Work Phone: No Panel Informationon 09-02 Estimated Creatinine Clearance Calc 60.19 ml/min [facility] Work Phone: Estimated GFR (MDRD) Amer 89 mL/min >60 [facility] Work Phone: Comment on above: GFR Calc Estimated GFR (MDRD) Non-Af Amer 74 mL/min >60 [facility] Work Phone: Comment on above: Non- GFR Calc Platelets bldon 09-02-2022 Platelets (Bld) [#/Vol] 182 10*3/uL 150-450 [facility] Work Phone: Serum or plasma albumin deangelo urement (mass/volume)on 09-02-2022 Albumin [Mass/Vol] 3.1 g/dL 3.2-5.0 [facility] Work Phone: Serum or plasma albumin/glob ulin mass ratioon 09-02-2022 Albumin/Globulin [Mass ratio] 1.1 {ratio} 0.9-2.4 [facility] Work Phone: Serum or plasma calcium deangelo urement (mass/volume)on 09-02-2022 Calcium [Mass/Vol] 8.4 mg/dL 8.5-10.1 [facility] Work Phone: Serum or plasma creatinine m easurement (mass/volume)on 09-02-2022 Creatinine [Mass/Vol] 1.06 mg/dL 0.70-1.30 [facility] Work Phone: Comment on above: The validity of the calculated GFR & GFRAA in patients over 70 years has not been determined. Clinical correlation is essential. Serum or plasma urea nitroge n measurement (mass/volume)on 09-02-2022 Urea nitrogen [Mass/Vol] 17 mg/dL 7-18 [facility] Work Phone: Thin prep Papanicolaou smear with manual screeningon 09-02-2022 Thin prep Papanicolaou smear with manual screening 16 U/L 15-37 [facility] Work Phone: Thin prep Papanicolaou smear with manual screening 5 5-15 [facility] Work Phone: Basophil percentageOrdered B y: Dr. Rodriguez on 08-12-2022 Cholesterol [Mass/Vol] 130 mg/dL <200 [facility] Comment on above: <200 mg/dL Desirable 200-240 mg/dL Borderline >240 mg/dL High Risk Triglyceride [Mass/Vol] 150 mg/dL <199 [facility] Comment on above: The drugs N-Acetylcy steine and Metamizole may falsely depress this assay.Serum Triglycerides Reference Interval Normal <150 mg/dL Borderline high 150 - 199 mg/dL High 200 - 499 mg/dL Very High > or = 500 mg/dL Laboratory - Chemistry and C hemistry - challengeOrdered By: Dr. Rodriguez on 08-12-2022 Magnesium [Mass/Vol] 2.1 mg/dL 1.6-2.6 [facility] No Panel InformationOrdered By: Angela Rodriguez on 08-12-2022 2.1 mg/dL 1.6-2.6 [facility] Serum or plasma cholesterol in HDL measurement (mass/volume)Ordered By: Dr. Rodriguez on 08-12-2022 Cholesterol in HDL [Mass/Vol] 28 mg/dL >40 [facility] Comment on above: The drugs N-Acetylcy steine and Metamizole may falsely depress this assay. Reference Range HDL <40 mg/dL Low HDL Cholesterol HDL >or= 60 mg/dL High HDL Cholesterol Serum or plasma cholesterol in VLDL measurement (mass/volume)Ordered By: Dr. Rodriguez on 08-12-2022 Cholesterol in VLDL [Mass/Vol] 30 mg/dL 5-40 [facility] Serum or plasma low density lipoprotein (LDL) cholesterol measurement (mass/volume)Ordered By: Dr. Rodriguez on 08-12-2022 Cholesterol in LDL [Mass/Vol] 72 mg/dL 0-130 [facility] Blood manual differential co mment interpretation (narrative result)on 07-15-2022 Manual differential comment [place] (Bld) [Interp] COMMENT [facility] Work Phone: Comment on above: LYMPHOPENIA. Laboratory - Chemistry and C hemistry - challengeon 07-15-2022 Free T4 [Mass/Vol] 1.52 ng/dL 0.76-1.46 [facility] Work Phone: Laboratory - Microbiology an d Antimicrobial susceptibilityon 07-15-2022 SARS-CoV-2 (COVID-19) RNA DAVID+probe Ql (Unsp spec) Not detected [facility] Work Phone: No Panel Informationon 07-15 POC Nasal Swab Influenza A,B Not detected [facility] Work Phone: POC Nasal Swab RSV Not detected [facility] Work Phone: Thyroid Stimulating Hormone (TSH) 0.77 uIU/mL 0.358-3.74 [facility] Work Phone: Review by pathologiston Pathologist review [place] (Unsp spec) [Interp] Reviewed [facility] Work Phone: Comment on above: Previous reported re sult: Samira rehman Edited by: VERITO on 07/16/22:1544LeukopeniaMicrocytic anemia.Clinical correlation necessary.Duglas Martínez M.D. 07/16/22 AMENDED REPORT 07/16/22 1544 PATH REV previously reported as: Samira rehman Serum or plasma cortisol samantha surement (mass/volume)on 07-15-2022 Cortisol [Mass/Vol] 25.10 ug/dL 3.44-22.45 [facility] Work Phone: Comment on above: Adult (AM) 5.27 - 22 .45 ug/dL Adult (PM) 3.44 - 16.76 ug/dLPlease note revised CORTISOL reference range effective 2020. Iron measurement (mass/mass) on 06-24-2022 Iron (Unsp spec) [Mass/Mass] 53 ug/dL 65-175 [facility] Work Phone: Laboratory - Hematology and Cell countsOrdered By: Dr. Rodriguez on 06-24-2022 Anisocytosis Ql (Bld) 1+ [facility] No Panel Informationon 06-24 Total Iron Binding Capacity 332 ug/dL 250-450 [facility] Work Phone: Serum or plasma ferritin samantha surement (mass/volume)on 06-24-2022 Ferritin [Mass/Vol] 138 ng/mL 26-388 [facility] Work Phone: Serum or plasma iron saturat ion measurement (mass fraction)on 06-24-2022 Iron saturation [Mass fraction] 16.0 % 15.0-55.0 [facility] Work Phone: Laboratory - Chemistry and C hemistry - challengeOrdered By: Dr. Rodriguez on 05-13-2022 Cobalamin (Vitamin B12) [Mass/Vol] 267 pg/mL 211-911 [facility] Serum or plasma folate measu rement (mass/volume)Ordered By: Dr. Rodriguez on 05-13-2022 Folate [Mass/Vol] 9.90 ng/mL 3.1-55.4 [facility] Thin prep Papanicolaou smear with manual screeningOrdered By: Dr. Piña on 05-13-2022 Thin prep Papanicolaou smear with manual screening 179 U/L 87-241 [facility] Stool gastrointestinal hemog lobin detection by immunologic methodon 04-04-2022 Lower GI hemoglobin IA Ql (Stl) [facility] Absolute lymphocyte counton 03-11-2022 Lymphocytes Auto (Unsp spec) [#/Vol] 0.78 10*3/uL 0.83-4.51 [facility] Work Phone: Basophil percentageon 2021 Basophil percentage 3.5 mg/dL 2.5-4.9 [facility] Work Phone: Basophils/100 WBC (Bld) 0.8 % 0-1 [facility] Work Phone: Bilirubin [Mass/Vol] 0.30 mg/dL 0.20-1.00 [facility] Work Phone: Comment on above: For patients on eltr ombopag therapy, use of Dimension [place] TBIL is not recommended. Chloride [Moles/Vol] 105 mmol/L 98-107 [facility] Work Phone: Eosinophils/100 WBC (Bld) 5.2 % 0-5 [facility] Work Phone: Glucose [Mass/Vol] 104 mg/dL 74-106 [facility] Work Phone: Comment on above: Fasting Glucose resu lt from 100 to 125 mg/dL suggests IMPAIRED HOMEOSTASIS per A.D.A. criteria. Neutrophils (Bld) [#/Vol] 4.2 10*3/uL 2.0-7.7 [facility] Work Phone: Neutrophils/100 WBC (Bld) 67.9 % 47-70 [facility] Work Phone: Potassium [Moles/Vol] 3.6 mmol/L 3.5-5.1 [facility] Work Phone: Protein [Mass/Vol] 6.6 g/dL 6.4-8.2 [facility] Work Phone: Sodium [Moles/Vol] 138 mmol/L 136-145 [facility] Work Phone: WBC (Bld) [#/Vol] 6.1 10*3/uL 4.4-11.0 [facility] Work Phone: Blood erythrocytes count (nu mber/volume)on 03-11-2022 RBC (Bld) [#/Vol] 4.40 10*6/uL 4.6-6.2 [facility]: Blood hemoglobin measurement (mass/volume)on 03-11-2022 Hemoglobin (Bld) [Mass/Vol] 10.6 g/dL 13.0-16.5 [facility] Work Phone: [phone] Blood lymphocytes/100 leukoc yteson 03-11-2022 Lymphocytes/100 WBC (Bld) 12.7 % 19-41 [facility] Work Phone: Blood monocytes/100 leukocyt eson 03-11-2022 Monocytes/100 WBC (Bld) 11.9 % 0-10 [facility] Work Phone: Blood platelet mean volumeon 03-11-2022 Platelet mean volume (Bld) [Entitic vol] 9.4 fL 6.2-12.0 [facility] Work Phone: Determination of erythrocyte mean corpuscular volume (MCV)on 05-03-2022 MCV (RBC) [Entitic vol] 75.0 fL 80-94 [facility] Work Phone: Hematocrit Auto (Bld) [Volum e fraction]on 03-11-2022 Hematocrit (Bld) [Volume fraction] 33.0 % 40-54 [facility] Work Phone: Hemoglobin in reticulocytes (mass per reticulocyte)on 03-11-2022 Hemoglobin (Reticulocytes) [Entitic mass] 25.7 pg 30-35 [facility] Iron measurement (mass/mass) on 03-11-2022 Iron (Unsp spec) [Mass/Mass] 29 ug/dL 65-175 [facility] Work Phone: Laboratory - Chemistry and C hemistry - challengeon 03-11-2022 Cobalamin (Vitamin B12) [Mass/Vol] 243 pg/mL 211-911 [facility] Work Phone: ALP [Catalytic activity/Vol] 57 U/L 45-117 [facility] Work Phone: ALT [Catalytic activity/Vol] 22 U/L 16-61 [facility] Work Phone: CO2 [Moles/Vol] 22.0 mmol/L 21.0-32.0 [facility] Work Phone: Globulin (S) [Mass/Vol] 3.2 g/dL 2.2-4.2 [facility] Work Phone: Urea nitrogen/Creatinine [Mass ratio] 16.8 mg/mg 10-20 [facility] Work Phone: Laboratory - Hematology and Cell countson 03-11-2022 Erythrocyte distribution width (RBC) [Entitic vol] 42.3 fL 35.1-43.9 [facility] Work Phone: Erythrocyte distribution width (RBC) [Ratio] 15.7 % 11.6-14.6 [facility] Work Phone: Immature granulocytes/100 WBC (Bld) 1.500 % 0.0-0.9 [facility] Work Phone: Comment on above: IG% - Immature Granu locytes (promyelocytes, myelocytes and metamyelocytes) > 1% indicates that a LEFT SHIFT is Present. MCH (RBC) [Entitic mass] 24.1 pg 27.0-32.0 [facility] Work Phone: Nucleated RBC/100 WBC (Bld) [Ratio] 0 % 0-5 [facility] Work Phone: MCHC Auto (RBC) [Mass/Vol]on 03-11-2022 MCHC (RBC) [Mass/Vol] 32.1 g/dL 32-36 [facility] Work Phone: No Panel Informationon 03-11 Immature Reticulocyte Fraction 29.70 % 3.00-15.90 [facility] Reticulocyte Count 2.12 % 0.5-1.5 [facility] Estimated Creatinine Clearance Calc 47.36 ml/min [facility] Work Phone: Estimated GFR (MDRD) Amer 74 mL/min >60 [facility] Work Phone: Comment on above: GFR Calc Estimated GFR (MDRD) Non-Af Amer 61 mL/min >60 [facility] Work Phone: Comment on above: Non- GFR Calc Total Iron Binding Capacity 416 ug/dL 250-450 [facility] Work Phone: Platelets bldon 03-11-2022 Platelets (Bld) [#/Vol] 208 10*3/uL 150-450 [facility] Work Phone: Serum or plasma albumin deangelo urement (mass/volume)on 03-11-2022 Albumin [Mass/Vol] 3.4 g/dL 3.2-5.0 [facility] Work Phone: Serum or plasma albumin/glob ulin mass ratioon 03-11-2022 Albumin/Globulin [Mass ratio] 1.1 {ratio} 0.9-2.4 [facility] Work Phone: Serum or plasma calcium deangelo urement (mass/volume)on 03-11-2022 Calcium [Mass/Vol] 8.5 mg/dL 8.5-10.1 [facility] Work Phone: Serum or plasma creatinine m easurement (mass/volume)on 03-11-2022 Creatinine [Mass/Vol] 1.25 mg/dL 0.70-1.30 [facility] Work Phone: Comment on above: The validity of the calculated GFR & GFRAA in patients over 70 years has not been determined. Clinical correlation is essential. Serum or plasma ferritin samantha surement (mass/volume)on 03-11-2022 Ferritin [Mass/Vol] 12 ng/mL 26-388 [facility] Work Phone: Serum or plasma iron saturat ion measurement (mass fraction)on 03-11-2022 Iron saturation [Mass fraction] 7.0 % 15.0-55.0 [facility] Work Phone: Serum or plasma urea nitroge n measurement (mass/volume)on 03-11-2022 Urea nitrogen [Mass/Vol] 21 mg/dL 7-18 [facility] Work Phone: Thin prep Papanicolaou smear with manual screeningon 03-11-2022 Thin prep Papanicolaou smear with manual screening 16 U/L 15-37 [facility] Work Phone: Thin prep Papanicolaou smear with manual screening 11 5-15 [facility] Work Phone: Laboratory - Chemistry and C hemistry - challengeon 01-07-2022 Free T4 [Mass/Vol] 1.07 ng/dL 0.76-1.46 [facility] Work Phone: Magnesium [Mass/Vol] 2.0 mg/dL 1.6-2.6 [facility] Work Phone: No Panel Informationon 01-07 Thyroid Stimulating Hormone (TSH) 1.49 uIU/mL 0.358-3.74 [facility] Work Phone: Serum or plasma cortisol samantha surement (mass/volume)on 11-26-2021 Cortisol [Mass/Vol] 16.10 ug/dL 3.44-22.45 [facility] Work Phone: Comment on above: Adult (AM) 5.27 - 22 .45 ug/dL Adult (PM) 3.44 - 16.76 ug/dLPlease note revised CORTISOL reference range effective 2020. VL Venous Duplex US Lower Ex t Righton 11-18-2021 VL Venous Duplex US Lower Ext Right Patient Name: KENN ARSHAD Sr Ultrasound ACCESSION EXAM DATE/TIME PROCEDURE ORDERING PROVIDER [id number] 11/18/2021 16:21 EST VL Venous [place] [id number] GABY WEEKS Lower Ext Right CPT code 15789 Reason For Exam (VL Venous Duplex US [...] 11/18/2021 4:28 Cardiovascular ACCESSION EXAM DATE/TIME PROCEDURE [id number] 11/18/2021 16:21 EST VL Venous Duplex US Lower Ext Right CPT code 41330 Reason For Exam (VL Venous Duplex US [...] Transcribed Date and Time: 11/18/2021 4:28 Normal [facility] Thin prep Papanicolaou smear with manual screeningon 10-10-2021 Thin prep Papanicolaou smear with manual screening 176 U/L 87-241 [facility] Work Phone: Basophil percentageon 2020 Basophil percentage 0 SEEN /hpf 0-5 [facility] Bilirubin Test strip Ql (U)o n 09-17-2021 Bilirubin Ql (U) Negative Negative [facility] Ketones Test strip Ql (U)on 09-17-2021 Ketones Ql (U) Negative Negative [facility] Mucus LM Ql (Urine sed)on Mucus Ql (Urine sed) 0 SEEN /hpf [facility] Nitrite Test strip Ql (U)on 09-17-2021 Nitrite Ql (U) Negative Negative [facility] Protein Test strip Ql (U)on 09-17-2021 Protein Ql (U) Negative Negative [facility] Squamous epithelial cells de tection in urine sediment by light microscopyon 09-17-2021 Epithelial cells.squamous LM Ql (Urine sed) 0-5 SEEN /hpf 0-5 [facility] Urine blood detectionon RBC Ql (U) Negative Negative [facility] RBC Ql (U) 0 SEEN /hpf 0-5 [facility] Urine clarityon 09-17-2021 Clarity (U) Sl. Cloudy Clear [facility] Urine color determinationon 09-17-2021 Color (U) Straw Yellow [facility] Urine glucose detectionon Glucose Ql (U) Normal mg/dl Normal [facility] Urine leukocyte esterase det ection by dipstickon 09-17-2021 Leukocyte esterase Test strip Ql (U) 25 /ul High Negative [facility] Urine pHon 09-17-2021 pH (U) 6.5 [pH] 5.0 - 8.0 [facility] Urine sediment bacteria coun t by microscopy (number/high power field)on 09-17-2021 Bacteria LM.HPF (Urine sed) [#/Area] RARE /hpf None Seen [facility] Urine specific gravity measu rementon 09-17-2021 Specific gravity (U) [Rel density] 1.010 1.002-1.030 [facility] Urobilinogen Auto test strip Ql (U)on 09-17-2021 Urobilinogen Ql (U) Normal mg/dl Normal [facility] MRI BRAIN W WO CONTRASTOrder ed By: Esthela Garcia on 08-01-2021 Patient Name: KENN VAUGHN Sr Magnetic Resonance Imaging ACCESSION EXAM DATE/TIME PROCEDURE ORDERING PROVIDER [id number] 08/01/2021 09:31 EDT MRI Brain w/ + w/o ARASH GARCIA, ESTHELA L[place]o CPT code 04863 Reason For Exam (MRI Brain w/ + [...] Phone: Ronnie, [facility] Incoming [facility] Results From [facility] - 08/01/2021 9:38 AM EDT Patient Name: KENN ARSHAD Sr [facility]#: [id number] Magnetic Resonance Imaging ACCESSION EXAM DATE/TIME PROCEDURE ORDERING PROVIDER [id number] 08/01/2021 09:31 EDT MRI Brain w/ + w/o ARASH GARCIA, ESTHELA Contrast CPT code 55895 Reason For Exam (MRI Brain w/ + [...] MALAY Transcribed Date and Time: 08/01/2021 9:38 [facility] Work Phone: [facility] Work Phone: MRI Brain w/ + w/o Contrasto n 08-01-2021 MRI Brain w/ + w/o Contrast [facility]: [id number] ACCESSION EXAM DATE/TIME PROCEDURE ORDERING PROVIDER [id number] 08/01/2021 09:31 EDT MRI Brain w/ + w/o GARCIA, DIAMOND GRINDER, ESTHELA Contrast CPT code 40935 Reason For Exam (MRI Brain w/ + [...] Transcribed Date and Time: 08/01/2021 9:38 Normal [facility] No Panel Informationon 07-09 Prostate Specific Antigen Screen 1.54 ng/mL 0.00-4.00 [facility] Comment on above: This test was perfor med using the TPSA assay method for the[employer] chemistry system. Values obtained with differentassay methods cannot be used interchangably.When changing PSA assays in the course of monitoring apatient, additional sequential testing should be carriedout to confirm baseline values. 1.54 ng/mL 0.00-4.00 [facility] Levetiracetamon 06-22-2021 levETIRAcetam [Mass/Vol] 16 ug/mL Normal 12-46 [facility] Comment on above: Result Comment: INTE RPRETIVE INFORMATION: Keppra (Levetiracetam) Therapeutic Range: 12-46 ug/mL Toxic: Not well Established Pharmacokinetics of levetiracetam are affected by renal function. Adverse effects may include somnolence, weakness, headache and vomiting. This levetiracetam (Keppra) immunoassay uses the [employer] reagents, which has known cross-reactivity with the drug brivaracetam (Briviact) and may report inaccurate results. Patients transitioning from levetiracetam to brivaracetam or those who are using both medications should not monitor drug concentrations with the [employer] assay. These patients should be monitored using a validated chromatographic methodology that distinguishes between drugs to determine drug concentrations. Performed By: [employer] [address] [place] [id number] Toll Test Worker: Ana Zepeda MD Performed By: #### L SADAF #### The performing lab is in the report. Blood platelet adequacy dete ction by light microscopyon 06-18-2021 Platelets LM Ql (Bld) ADEQUATE ADEQ [facility] Work Phone: Review by pathologiston 06-09 Pathologist review [place] (Unsp spec) [Interp] Reviewed [facility] Work Phone: Comment on above: Previous reported re sult: Samira rehman Edited by: VERITO on 06/20/21:09lymphopeniaNormocytic anemia.Clinical correlation suggested.Jag Pickard D.O. 06/20/21 AMENDED REPORT 06/20/21 0901 PATH REV previously reported as: Samira rehman Hemoglobin A1Con 05-17-2021 Glucose [Mass/Vol] 111 mg/dL Normal [facility] Comment on above: Performed By: #### H CHARLOTTE IVAN #### [address] [address] HbA1c (Bld) [Mass fraction] 5.5 % Normal [facility] Comment on above: Result Comment: Norm al less than 5.7% Prediabetes 5.7% to 6.4% Diabetes 6.5% or higher --HgbA1C levels may not be accurate in patients who have renal disease, received recent blood transfusions, are anemic, or who have dyshemoglobinemia. Performed By: #### H CHARLOTTE IVAN #### [address] [address] [place], [place] Hemoglobin R9sCncilxy By: Altagracia Morin on 05-17-2021 HbA1c (Bld) [Mass fraction] 5.5 % [facility] Work Phone: Comment on above: Normal less than 5.7 % Prediabetes 5.7% to 6.4% Diabetes 6.5% or higher --HgbA1C levels may not be accurate in patients who have renal disease, received recent blood transfusions, are anemic, or who have dyshemoglobinemia. Magnesium [Mass/Vol] 111 mg/dL [facility] Work Phone: Test Performed by [facility], [address] [place] [address] [facility] Work Phone: [facility] Work Phone: Basic Metabolic Panelon 07-0 Anion gap [Moles/Vol] 10 mmol/L Normal 3-13 [facility] Comment on above: Performed By: #### B MP3M, MG3, HEMDF #### [address] [address] [place] [address] Calcium [Mass/Vol] 8.3 mg/dL Low 8.4-10.4 [facility] Comment on above: Performed By: #### B MP3M, MG3, HEMDF #### [facility] [address] [place], [place] CO2 [Moles/Vol] 18 mmol/L Low 22-30 [facility] Comment on above: Performed By: #### B MP3M, MG3, HEMDF #### [address] [address] [place], [place] Creatinine [Mass/Vol] 0.79 mg/dL Normal 0.52-1.25 [facility] Comment on above: Performed By: #### B MP3M, MG3, HEMDF #### [address] [address] [place], [place] eGFR OTHER > 90.0 Normal >60 [facility] Comment on above: Result Comment: KDIG O [...] By: #### B MP3M MG3, HEMDF #### [address] [address] [place], [place] GFR/1.73 sq M.predicted among blacks MDRD (S/P/Bld) [Vol rate/Area] mL/min/{1.73_m2} Normal >60 [facility] Comment on above: Performed By: #### B MP3M MG3, HEMDF #### [address] Glucose [Mass/Vol] 97 mg/dL Normal 70-100 [facility] Comment on above: Performed By: #### B MP3M, MG3, HEMDF #### [address] [address] [place], [place] Urea nitrogen [Mass/Vol] 11 mg/dL Normal 7-20 [facility] Comment on above: Performed By: #### B MP3M, MG3, HEMDF #### [facility] [address] [place] [place], [place] Chloride [Moles/Vol] 110 mmol/L High 98-107 [facility] Comment on above: Performed By: #### B MP3M, MG3, HEMDF #### [address] [address] [place], [place] Potassium [Moles/Vol] 3.3 mmol/L Low 3.5-5.1 [facility] Comment on above: Performed By: #### B MP3M, MG3, HEMDF #### [facility] [address] [place], [place] Sodium [Moles/Vol] 138 mmol/L Normal 135-145 [facility] Comment on above: Performed By: #### B MP3M, MG3, HEMDF #### [facility] [address] [place] [place], [place] Basic Metabolic Panel w/ Ref jeovany to MGOrdered By: Carine Morin on 05-16-2021 Anion gap [Moles/Vol] 10 mmol/L 3 - 13 mmol/L [facility] Work Phone: Calcium [Mass/Vol] 8.3 mg/dL Low 8.4 - 10. 4 mg/dL [facility] Work Phone: Chloride [Moles/Vol] 110 mmol/L High 98 - 10 7 mmol/L [facility] Work Phone: CO2 [Moles/Vol] 18 mmol/L Low 22 - 30 mmol/L [facility] Work Phone: Creatinine [Mass/Vol] 0.79 mg/dL 0.52 - 1.25 mg/dL [facility] Work Phone: EGFR IF NonAfrican Trinidadian >90.0 >60 mL/min [facility] Work Phone: Comment on above: KDIGO guidelines [...] MDRD (S/P/Bld) [Vol rate/Area] mL/min/{1.73_m2} >60 mL/min [facility] Work Phone: Glucose [Mass/Vol] 97 mg/dL 70 - 100 mg/dL [facility] Work Phone: Interpretation and review of laboratory results Abnormal [facility] Work Phone: Potassium [Moles/Vol] 3.3 mmol/L Low 3.5 - 5.1 mmol/L [facility] Work Phone: Sodium [Moles/Vol] 138 mmol/L 135 - 145 mmol/L [facility] Work Phone: Urea nitrogen (BldV) [Mass/Vol] 11 mg/dL 7 - 20 mg/dL [facility] Work Phone: Test Performed by [address] [address] [facility] Work Phone: [facility] Work Phone: CBCOrdered By: Celsa rey on 05-16-2021 Hematocrit (Bld) [Volume fraction] 34.8 % Low 40.0 - 52.0 % [facility] Work Phone: [phone] Hemoglobin.gastrointes tinal spec 1 Ql (Stl) 12.0 g/dL Low 13.0 - 18.0 g/dL [facility] Work Phone: [phone] Interpretation and review of [...] 10*3/uL [facility] Work Phone: Test Performed by [facility], [address] [place] [address] [facility] Work Phone: [facility] Work Phone: [phone] [...] (Bld) 4.9 % 1.0 - 6.0 % [facility] Work Phone: () 222 Granulocytes/100 WBC (Bld) 72.4 % 40.0 - 80.0 % [facility] Work Phone: [phone] Hematocrit (Bld) [Volume fraction] 36.5 % Low 40.0 - 52.0 % [facility] Work Phone: ) 222 Hemoglobin.gastrointes tinal spec 1 Ql (Stl) 12.5 g/dL Low 13.0 - 18.0 g/dL [facility] Work Phone: [phone] Interpretation and review of laboratory results Abnormal [facility] Work Phone: () 222 Lymphocytes (Bld) [#/Vol] 0.8 10*3/uL Low 1.0 - 4.3 10*3/uL [facility] Work Phone: ) 222 Lymphocytes/100 WBC (Bld) 13.8 % Low 20.0 - 40.0 % [facility] Work Phone: [phone] MCH (RBC) [Entitic mass] 27.3 pg 26.0 - 34.0 pg [facility] Work Phone: ) 222 MCHC (RBC) [Mass/Vol] 34.2 % 32.0 - 36.0 % [facility] Work Phone: [phone] MCV (RBC) [Entitic vol] 80.0 fL 80.0 - 98.0 fL [facility] Work Phone: () 222 Monocytes (Bld) [#/Vol] 0.5 10*3/uL 0.0 - 0.8 10*3/uL [facility] Work Phone: () 222 Monocytes/100 WBC (Bld) 7.4 % 2.0 - 10.0 % [facility] Work Phone: [phone] Platelet distribution width (Bld) [Ratio] 14.8 % High 11.5 - 14.5 % [facility] Work Phone: ) 222 Platelet mean volume (Bld) [Entitic vol] 7.6 fL 7.4 - 10.4 fL [facility] Work Phone: [phone] Platelets (Bld) [#/Vol] 136 10*3/uL Low 140 - 440 10*3/uL [facility] Work Phone: RBC (Bld) [#/Vol] 4.57 10*6/uL 4.40 - 5.9 0 10*6/uL [facility] Work Phone: [phone] WBC (Bld) [#/Vol] 6.1 10*3/uL 3.6 - 10.7 10*3/uL [facility] Work Phone: [phone] Test Performed by [facility], [address] [place] [address] [facility] Work Phone: [phone] [facility] Work Phone: [phone] CR Abdomen APon 05-16-2021 CR Abdomen AP Patient Name: KENN VAUGHN Sr Diagnostic Radiology ACCESSION EXAM DATE/TIME PROCEDURE ORDERING PROVIDER [id number] 05/16/2021 09:51 EDT CR Abdomen AP MD SHANEKA., CARINE Hastings CPT code 75388 Reason For Exam (CR Abdomen AP) MRI [...] Transcribed Date and Time: 05/16/2021 7:15 Normal [facility] Comp Panel with Mg Reflexon 05-16-2021 ALP [Catalytic activity/Vol] 55 U/L Normal 38-126 [facility] Comment on above: Performed By: #### T ROPN, MG3, HA1C2, HEMOG, CMP3M, LIPD2 #### [address] [address] [place], [place] ALT [Catalytic activity/Vol] 10 U/L Normal 0-49 [facility] Comment on above: Result Comment: The ALT test is performed by an updated assay method. Please note that the reference intervals have been changed and are now sex specific. Performed By: #### T ROPN, MG3, HA1C2, HEMOG, CMP3M, LIPD2 #### [address] [address] [place], [place] Anion gap [Moles/Vol] 9 mmol/L Normal 3-13 [facility] Comment on above: Performed By: #### T ROPN, MG3, HA1C2, HEMOG, CMP3M, LIPD2 #### [address] [address] [place], [place] AST [Catalytic activity/Vol] 20 U/L Normal 15-46 [facility] Comment on above: Performed By: #### T ROPN, MG3, HA1C2, HEMOG, CMP3M, LIPD2 #### [address] [address] [place], [place] Bilirubin [Mass/Vol] 0.5 mg/dL Normal 0.2-1.3 [facility] Comment on above: Performed By: #### T ROPN, MG3, HA1C2, HEMOG, CMP3M, LIPD2 #### [address] [address] [place] Calcium [Mass/Vol] 8.3 mg/dL Low 8.4-10.4 [facility] Comment on above: Performed By: #### T ROPN, MG3, HA1C2, HEMOG, CMP3M, LIPD2 #### [address] [address] [place] CO2 [Moles/Vol] 18 mmol/L Low 22-30 [facility] Comment on above: Performed By: #### T ROPN, MG3, HA1C2, HEMOG, CMP3M, LIPD2 #### [address] [address] [place] [address] Creatinine [Mass/Vol] 0.87 mg/dL Normal 0.52-1.25 [facility] Comment on above: Performed By: #### T ROPN, MG3, HA1C2, HEMOG, CMP3M, LIPD2 #### [facility] [address] [place] [address] GFR/1.73 sq M.predicted among blacks MDRD (S/P/Bld) [Vol rate/Area] mL/min/{1.73_m2} Normal >60 [facility] Comment on above: Performed By: #### T ROPN, MG3, HA1C2, HEMOG, CMP3M, LIPD2 #### [address] [address] [place] [address] GFR/1.73 sq M.predicted among non-blacks MDRD (S/P/Bld) [Vol rate/Area] 88.9 mL/min/{1.73_m2} Normal >60 [facility] Comment on above: Result Comment: KDIG O [...] ROPN, MG3, HA1C2, HEMOG, CMP3M, LIPD2 #### [facility] [address] [place] [address] Glucose [Mass/Vol] 87 mg/dL Normal 70-100 [facility] Comment on above: Performed By: #### T ROPN, MG3, HA1C2, HEMOG, CMP3M, LIPD2 #### [address] [address] [place], [place] Protein [Mass/Vol] 5.8 g/dL Low 6.3-8.2 [facility] Comment on above: Performed By: #### T ROPN, MG3, HA1C2, HEMOG, CMP3M, LIPD2 #### [address] [address] [place], [place] Urea nitrogen [Mass/Vol] 13 mg/dL Normal 7-20 [facility] Comment on above: Performed By: #### T ROPN, MG3, HA1C2, HEMOG, CMP3M, LIPD2 #### [address] [address] [place] Albumin [Mass/Vol] 3.3 g/dL Low 3.5-5.0 [facility] Comment on above: Performed By: #### T ROPN, MG3, HA1C2, HEMOG, CMP3M, LIPD2 #### [address] [address] [place] Potassium [Moles/Vol] 3.3 mmol/L Low 3.5-5.1 [facility] Comment on above: Performed By: #### T ROPN, MG3, HA1C2, HEMOG, CMP3M, LIPD2 #### [address] [address] [place] Sodium [Moles/Vol] 136 mmol/L Normal 135-145 [facility] Comment on above: Performed By: #### T ROPN, MG3, HA1C2, HEMOG, CMP3M, LIPD2 #### [address] [address] [place] Chloride [Moles/Vol] 109 mmol/L High 98-107 [facility] Comment on above: Performed By: #### T ROPN, MG3, HA1C2, HEMOG, CMP3M, LIPD2 #### [address] [address] [place], [place] Comprehensive Metabolic Pane l w/ Reflex to MGOrdered By: Celsa Wu on 05-16-2021 Albumin [Mass/Vol] 3.3 g/dL Low 3.5 - 5.0 g/dL [facility] Work Phone: [phone] ALP (Bld) [Catalytic activity/Vol] 55 U/L 38 - 126 U/L [facility] Work Phone: ALT [Catalytic activity/Vol] 10 U/L 0 - 49 U/L [facility] Work Phone: [phone] Comment on above: The ALT test is perf ormed by an updated assay method. Please note that the reference intervals have been changed and are now sex specific. Anion gap [Moles/Vol] 9 mmol/L 3 - 13 mmol/L [facility] Work Phone: [phone] AST [Catalytic activity/Vol] 20 U/L 15 - 46 U/L [facility] Work Phone: [phone] Bilirubin [Mass/Vol] 0.5 mg/dL 0.2 - 1 .3 mg/dL [facility] Work Phone: [phone] Calcium [Mass/Vol] 8.3 mg/dL Low 8.4 - 10. 4 mg/dL [facility] Work Phone: [phone] Chloride [Moles/Vol] 109 mmol/L High 98 - 10 7 mmol/L [facility] Work Phone: [phone] CO2 [Moles/Vol] 18 mmol/L Low 22 - 30 mmol/L [facility] Work Phone: [phone] Creatinine [Mass/Vol] 0.87 mg/dL 0.52 - 1.25 mg/dL [facility] Work Phone: EGFR IF NonAfrican Trinidadian 88.9 mL/min >60 [facility] Work Phone: Comment [...] 5.8 g/dL Low 6.3 - 8.2 g/dL [facility] Work Phone: GFR/1.73 sq M.predicted among blacks MDRD (S/P/Bld) [Vol rate/Area] mL/min/{1.73_m2} >60 mL/min [facility] Work Phone: Glucose [Mass/Vol] 87 mg/dL 70 - 100 mg/dL [facility] Work Phone: Potassium [Moles/Vol] 3.3 mmol/L Low 3.5 - 5.1 mmol/L [facility] Work Phone: Sodium [Moles/Vol] 136 mmol/L 135 - 145 mmol/L [facility] Work Phone: Urea nitrogen (BldV) [Mass/Vol] 13 mg/dL 7 - 20 mg/dL [facility] Work Phone: ECHO Complete 2D W Doppler W ColorOrdered By: Celsa Wu on 05-16-2021 TRANSTHORACIC ECHOCARDIOGRAM PATIENT: Kenn Arshad STUDY DATE: 05/16/2021 : 1955 AGE: 65 HT/WT: 165.1 cm (65 86.2 kg (189.6 in) lb) GENDER: M BP: 162 / 69 LOCATION: [facility] PATIENT Inpatient main STATUS: *ORDERING PHYSICIAN: * Celsa Wu *READING PHYSICIAN: * Lj Nelson, *ELECTRIC DISTRIBUTION CHECKER: * Milena Luz RDCS, MD AE INDICATIONS: [...] Ventricular septum Value (more content not included)... [facility] Work Phone: Ronnie, [facility] Incoming Cardiology Results From [place]/[facility] - 05/16/2021 5:03 PM EDT TRANSTHORACIC ECHOCARDIOGRAM PATIENT: Kenn Arshad STUDY DATE: 05/16/2021 : 1955 AGE: 65 HT/WT: 165.1 cm (65 86.2 kg (189.6 in) lb) GENDER: M BP: 162 / 69 LOCATION: [facility] PATIENT Inpatient main STATUS: *ORDERING PHYSICIAN: * Celsa Wu *READING PHYSICIAN: * Lj Nelson, *ELECTRIC DISTRIBUTION CHECKER: * Milena Luz RDCS, MD AE INDICATIONS: [...] valve area/bsa, VTI (more content not included)... [facility] Work Phone: [facility] Work Phone: EEGOrdered By: Celsa rey on [...] discretion of the ordering provider. Thank you. [facility] Work Phone: [facility] Work Phone: EKG 12 LeadOrdered By: Rah Birch on 05-16-2021 [facility] Test Date: 2021-05-15 Pat Name: KENN ARSHAD Department: [facility] Room: 1325 Gender: M Acute Care Assistant: LILY : 1955 Requested By: TONO BIRCH Order Number: [id number] Reading MD: Pradeep Atkinson Measurements Intervals [place] Rate: 83 P: 76 DE: 190 QRS: 9 QRSD: 93 T: 27 QT: 418 QTc: 492 Interpretive Statements Sinus rhythm Minimal ST depression, anterolateral leads Borderline prolonged QT interval Compared to ECG 05/15/2021 09:49:32 ST (T wave) deviation now present Electronically Signed On 05-16-2021 12:17:07 EDT by Pradeep Atkinson [facility] Work Phone: Ronnie, [facility] Incoming Cardiology Results From [facility] - 05/16/2021 12:18 PM EDT [facility] Test Date: 2021-05-15 Pat Name: KENN ARSHAD Department: [facility] [facility] Room: 1325 Gender: M Acute Care Assistant: [facility] : 1955 Requested By: TONO BIRCH Order Number: [id number] Reading MD: Pradeep Atkinson Measurements Intervals [place] Rate: 83 P: 76 DE: 190 QRS: 9 QRSD: 93 T: 27 QT: 418 QTc: 492 Interpretive Statements Sinus rhythm Minimal ST depression, anterolateral leads Borderline prolonged QT interval Compared to ECG 05/15/2021 09:49:32 ST (T wave) deviation now present Electronically Signed On 05-16-2021 12:17:07 EDT by Pradeep PALACIOS Work Phone: [employer] Work Phone: EKG 12 Lead if not already d one by SquadOrdered By: Tono Birch on 05-16-2021 [facility] Test Date: 2021-05-15 Pat Name: KENN ARSHAD Department: [facility] Room: 1325 Gender: M Acute Care Assistant: [facility] : 1955 Requested By: TONO BIRCH Order Number: [id number] Reading MD: Pradeep Atkinson Measurements Intervals [place]enton Rate: 75 P: 71 DE: 177 QRS: 1 QRSD: 97 T: 32 QT: 426 QTc: 476 Interpretive Statements Sinus rhythm Borderline prolonged QT interval Electronically Signed On 05-16-2021 9:47:40 EDT by Pradeep PALACIOS Work Phone: Ronnie, [facility] Incoming Cardiology Results From [place] - 05/16/2021 9:48 AM EDT [facility] Test Date: 2021-05-15 Pat Name: KENN ARSHAD Department: [facility] Room: 1325 Gender: M Acute Care Assistant: [facility] : 1955 Requested By: TONO BIRCH Order Number: [id number] Reading MD: Pradeep Atkinson Measurements Intervals [place] Rate: 75 P: 71 DE: 177 QRS: 1 QRSD: 97 T: 32 QT: 426 QTc: 476 Interpretive Statements Sinus rhythm Borderline prolonged QT interval Electronically Signed On 05-16-2021 9:47:40 EDT by Pradeep Atkinson OrderUp Phone: [employer] Work Phone: Echo Complete w/wo Contrasto n 05-16-2021 Echo Complete w/wo Contrast Patient Name: KENN ARSHAD Sr Ultrasound ACCESSION EXAM DATE/TIME PROCEDURE ORDERING PROVIDER [id number] 05/16/2021 13:06 EDT Echo Complete w/wo ARASH WU, CELSA Hastings Contrast Reason For Exam (Echo Complete w/wo Contrast) HTN Report [facility] [place] TRANSTHORACIC ECHOCARDIOGRAM PATIENT: Kenn Arshad STUDY DATE: 05/16/2021 : 1955 AGE: 65 HT/WT: 165.1 cm (65 86.2 kg (189.6 in) lb) GENDER: M BP: 162 / 69 LOCATION: [facility] PATIENT Inpatient main STATUS: *ORDERING PHYSICIAN: * Celsa Wu *READING PHYSICIAN: * Lj Nelson, *ELECTRIC DISTRIBUTION CHECKER: * Milena Luz RDCS, MD AE INDICATIONS: [...] --------- Aor (more content not included)... Normal [facility] Hemoglobin A1Con 05-16-2021 Glucose [Mass/Vol] 111 mg/dL Normal [facility] Comment on above: Performed By: #### T MICKIE, MG3, HA1C2, HEMOG, CMP3M, LIPD2 #### [facility] [address] [place] [address] HbA1c (Bld) [Mass fraction] 5.5 % Normal [facility] Comment on above: Result Comment: Norm al less than 5.7% Prediabetes 5.7% to 6.4% Diabetes 6.5% or higher --HgbA1C levels may not be accurate in patients who have renal disease, received recent blood transfusions, are anemic, or who have dyshemoglobinemia. Performed By: #### T ROPN, MG3, HA1C2, HEMOG, CMP3M, LIPD2 #### [facility] [address] [place] [address] Hemoglobin [id number] By: Joanna Wu on 05-16-2021 HbA1c (Bld) [Mass fraction] 5.5 % [facility] Work Phone: Comment on above: Normal less than 5.7 % Prediabetes 5.7% to 6.4% Diabetes 6.5% or higher --HgbA1C levels may not be accurate in patients who have renal disease, received recent blood transfusions, are anemic, or who have dyshemoglobinemia. Magnesium [Mass/Vol] 111 mg/dL [facility] Work Phone: Test Performed by [facility], [address] [place] [id number] [place] [address] Work Phone: [facility] Work Phone: Hemogramon 05-16-2021 Erythrocyte distribution width (RBC) [Ratio] 14.6 % High 11.5-14.5 [facility] Comment on above: Performed By: #### T ROPN, MG3, HA1C2, HEMOG, CMP3M, LIPD2 #### [address] Hematocrit (Bld) [Volume fraction] 34.8 % Low 40.0-52.0 [facility] Comment on above: Performed By: #### T ROPN, MG3, HA1C2, HEMOG, CMP3M, LIPD2 #### [address] Hemoglobin (Bld) [Mass/Vol] 12.0 g/dL Low 13.0-18.0 [facility] Comment on above: Performed By: #### T ROPN, MG3, HA1C2, HEMOG, CMP3M, LIPD2 #### [address] MCH (RBC) [Entitic mass] 27.0 pg Normal 26.0-34.0 [facility] Comment on above: Performed By: #### T ROPN, MG3, HA1C2, HEMOG, CMP3M, LIPD2 #### [address] MCHC 34.6 % Normal 32.0-36.0 [facility] Comment on above: Performed By: #### T ROPN, MG3, HA1C2, HEMOG, CMP3M, LIPD2 #### [address] MCV (RBC) [Entitic vol] 78.1 fL Low 80.0-98.0 [facility] Comment on above: Performed By: #### T ROPN, MG3, HA1C2, HEMOG, CMP3M, LIPD2 #### [address] [address] [place], [place] Platelet mean volume (Bld) [Entitic vol] 7.8 fL Normal 7.4-10.4 [facility] Comment on above: Performed By: #### T ROPN, MG3, HA1C2, HEMOG, CMP3M, LIPD2 #### [address] [address] [place], [place] Platelets (Bld) [#/Vol] 147 10*3/uL Normal 140-440 [facility] Comment on above: Performed By: #### T ROPN, MG3, HA1C2, HEMOG, CMP3M, LIPD2 #### [address] RBC (Bld) [#/Vol] 4.46 10*6/uL Normal 4.40-5.90 [facility] Comment on above: Performed By: #### T ROPN, MG3, HA1C2, HEMOG, CMP3M, LIPD2 #### [address] [address] [place], [place] WBC (Bld) [#/Vol] 5.9 10*3/uL Normal 3.6-10.7 [facility] Comment on above: Performed By: #### T ROPN, MG3, HA1C2, HEMOG, CMP3M, LIPD2 #### [address] [address] [place], [place] Hemogram w/ Autodiffon 05-16 Abs Baso Cnt 0.1 10*3/uL Normal 0.0-0.2 [facility] Comment on above: Performed By: #### B MP3M, MG3, HEMDF #### [address] [address] [place], [place] Abs Neutrophile Cnt 4.4 10*3/uL Normal 1.8-7.0 [facility] Comment on above: Performed By: #### B MP3M, MG3, HEMDF #### [address] [address] [place], [place] Basophils/100 WBC (Bld) 1.5 % Normal 0.0-2.0 [facility] Comment on above: Performed By: #### B MP3M, MG3, HEMDF #### [address] [address], [place] Eosinophils (Bld) [#/Vol] 0.3 10*3/uL Normal 0.0-0.5 [facility] Comment on above: Performed By: #### B MP3M, MG3, HEMDF #### [address] [address], [place] Eosinophils/100 WBC (Bld) 4.9 % Normal 1.0-6.0 [facility] Comment on above: Performed By: #### B MP3M, MG3, HEMDF #### [address] [address], [place] Erythrocyte distribution width (RBC) [Ratio] 14.8 % High 11.5-14.5 [facility] Comment on above: Performed By: #### B MP3M, MG3, HEMDF #### [address] [address], [place] Granulocytes/100 WBC (Bld) 72.4 % Normal 40.0-80.0 [facility] Comment on above: Performed By: #### B MP3M, MG3, HEMDF #### [address] [address], [place] Hematocrit (Bld) [Volume fraction] 36.5 % Low 40.0-52.0 [facility] Comment on above: Performed By: #### B MP3M, MG3, HEMDF #### [address] [address], [place] Hemoglobin (Bld) [Mass/Vol] 12.5 g/dL Low 13.0-18.0 [facility] Comment on above: Performed By: #### B MP3M, MG3, HEMDF #### [address] [address], [place] Lymphocytes (Bld) [#/Vol] 0.8 10*3/uL Low 1.0-4.3 [facility] Comment on above: Performed By: #### B MP3M, MG3, HEMDF #### [address] [place], [place] Lymphocytes/100 WBC (Bld) 13.8 % Low 20.0-40.0 [facility] Comment on above: Performed By: #### B MP3M, MG3, HEMDF #### [address] [place], [place] MCH (RBC) [Entitic mass] 27.3 pg Normal 26.0-34.0 [facility] Comment on above: Performed By: #### B MP3M, MG3, HEMDF #### [address] [address] [place] MCHC 34.2 % Normal 32.0-36.0 [facility] Comment on above: Performed By: #### B MP3M, MG3, HEMDF #### [address] [place], [place] MCV (RBC) [Entitic vol] 80.0 fL Normal 80.0-98.0 [facility] Comment on above: Performed By: #### B MP3M, MG3, HEMDF #### [address] [place], [place] Monocytes (Bld) [#/Vol] 0.5 10*3/uL Normal 0.0-0.8 [facility] Comment on above: Performed By: #### B MP3M, MG3, HEMDF #### [address] Monocytes/100 WBC (Bld) 7.4 % Normal 2.0-10.0 [facility] Comment on above: Performed By: #### B MP3M, MG3, HEMDF #### [address] [place], [place] Platelet mean volume (Bld) [Entitic vol] 7.6 fL Normal 7.4-10.4 [facility] Comment on above: Performed By: #### B MP3M, MG3, HEMDF #### [address] [place], [place] Platelets (Bld) [#/Vol] 136 10*3/uL Low 140-440 [facility] Comment on above: Performed By: #### B MP3M, MG3, HEMDF #### [address] [address] [place], [place] RBC (Bld) [#/Vol] 4.57 10*6/uL Normal 4.40-5.90 [facility] Comment on above: Performed By: #### B MP3M, MG3, HEMDF #### [address] [address] [place], [place] WBC (Bld) [#/Vol] 6.1 10*3/uL Normal 3.6-10.7 [facility] Comment on above: Performed By: #### B MP3M, MG3, HEMDF #### [address] [place], [place] Lipid Panelon 05-16-2021 Chol/HDL 5 Normal [facility] Comment on above: Result Comment: Ref Range: < 3 Low Risk for CHD 3-6 Mod Risk for CHD > 6 High Risk for CHD Performed By: #### T ROPN, MG3, HA1C2, HEMOG, CMP3M, LIPD2 #### [address] [place], [place] Cholesterol in HDL [Mass/Vol] 26 mg/dL Low 40-60 [facility] Comment on above: Performed By: #### T ROPN, MG3, HA1C2, HEMOG, CMP3M, LIPD2 #### [address] [address], [place] Low Density Lipoprotein 82 mg/dL Normal <100 [facility] Comment on above: Performed By: #### T ROPN, MG3, HA1C2, HEMOG, CMP3M, LIPD2 #### [address] [place] [address] Triglyceride [Mass/Vol] 107 mg/dL Normal <150 [facility] Comment on above: Performed By: #### T ROPN, MG3, HA1C2, HEMOG, CMP3M, LIPD2 #### [facility] [address] [place] [address] Cholesterol [Mass/Vol] 129 mg/dL Normal < 200 [facility] Comment on above: Performed By: #### T ROPN, MG3, HA1C2, HEMOG, CMP3M, LIPD2 #### [facility] [address] [place] [address] Lipid panel - fastingOrdered By: Celsa Wu on 05-16-2021 Cholesterol [Mass/Vol] 129 mg/dL <200 [facility] Work Phone: Cholesterol in HDL [Mass/Vol] 26 mg/dL Low 40 - 60 mg/dL [employer] Work Phone: Cholesterol in LDL [Mass/Vol] 82 mg/dL <100 [employer] Work Phone: Cholesterol.total/Chol esterol in HDL [Mass ratio] 5 {ratio} [employer] Work Phone: Comment on above: Ref Range: < 3 Low Risk for CHD 3-6 Mod Risk for CHD > 6 High Risk for CHD Triglyceride [Mass/Vol] 107 mg/dL <150 [facility] [employer] Phone: MRI Brain w/ + w/o Contrasto n 05-16-2021 MRI Brain w/ + w/o Contrast Patient Name: KENN ARSHAD Sr Magnetic Resonance Imaging ACCESSION EXAM DATE/TIME PROCEDURE ORDERING PROVIDER [id number] 05/16/2021 10:38 EDT MRI Brain w/ + w/o ARASH WU, CELSA Loredo CPT code 83849 Reason For Exam (MRI Brain w/ + [...] Transcribed Date and Time: 05/16/2021 11:40 Normal [facility] MRI brain with and without c ontrast (REVIEW IMAGING RECORDS IN THE LAST 2 YRS to determine INDICATION prior to oder )Ordered By: Celsa Wu on 05-16-2021 Patient Name: [id number] Imaging ACCESSION EXAM DATE/TIME PROCEDURE ORDERING PROVIDER [id number] 05/16/2021 10:38 EDT MRI Brain w/ + w/o ARASH WU, CELSA Hastings Contrast CPT code 72110 Reason For Exam (MRI Brain w/ + [...] Phone: [facility], [facility] Incoming Radiology Results From [facility] - 05/16/2021 11:52 AM EDT Patient Name: KENN ARSHAD [id number] Magnetic Resonance Imaging ACCESSION EXAM DATE/TIME PROCEDURE ORDERING PROVIDER [id number] 05/16/2021 10:38 EDT MRI Brain w/ + w/o ARASH WU, CELSA Hastings Contrast CPT code 29951 Reason For Exam (MRI Brain w/ + [...] KRIKOR Transcribed Date and Time: 05/16/2021 11:40 [facility] Work Phone: [facility] Work Phone: Magnesiumon 05-16-2021 Magnesium [Mass/Vol] 2.0 mg/dL Normal 1.6-2.3 [facility] Comment on above: Performed By: #### H EMOG, TROPN #### [address] [address] Magnesium [Mass/Vol] 2.0 mg/dL Normal 1.6-2.3 [facility] Comment on above: Performed By: #### T ROPN, MG3, HA1C2, HEMOG, CMP3M, LIPD2 #### [address] [address] MagnesiumOrdered By: Carine Morin on 05-16-2021 Magnesium [Mass/Vol] 2.0 mg/dL 1.6 - 2 .3 mg/dL [facility] Work Phone: Test Performed by [facility], [address] [place] [address] [facility] Work Phone: [facility] Work Phone: MagnesiumOrdered By: Celsa Wu on 05-16-2021 Magnesium [Mass/Vol] 2.0 mg/dL 1.6 - 2 .3 mg/dL [employer] Work Phone: Test Performed by [employer], [address] [place] [address] [employer] Work Phone: [phone] [employer] Work Phone: No Panel InformationOrdered By: Celsa Wu on 05-16-2021 Interpretation and review of laboratory results Abnormal [facility] Work Phone: Test Performed by [employer], [address] [place] [address] [facility] Work Phone: [phone] [employer] Work Phone: [phone] TroponinOrdered By: Celsa Wu on 05-16-2021 Troponin I.cardiac [Mass/Vol] 0.034 ng/mL 0.000 - 0.034 ng/mL [employer] Work Phone: Comment on above: . Test Performed by [employer], [address] [place] [address] [employer] Work Phone: [phone] [employer] Work Phone: Troponin Ion 05-16-2021 Troponin I.cardiac [Mass/Vol] 0.034 ng/mL Normal 0.000-0.034 [facility] Comment on above: Result Comment: . Performed By: #### T ROPN, MG3, HA1C2, HEMOG, CMP3M, LIPD2 #### [employer] [address] [place] [address] XR ABDOMEN (KUB) (SINGLE AP VIEW)Ordered By: Carine Morin on 05-16-2021 Patient Name: KENN VAUGHN Sr Diagnostic Radiology ACCESSION EXAM DATE/TIME PROCEDURE ORDERING PROVIDER [id number] 05/16/2021 09:51 EDT CR Abdomen AP MD. SHANEKA, CARINE Hastings CPT code 76817 Reason For Exam (CR Abdomen AP) MRI [...] Phone: Ronnie, [facility] Incoming Radiology Results From [facility] - 05/16/2021 7:17 PM EDT Patient Name: KENN ARSHAD Sr Diagnostic Radiology ACCESSION EXAM DATE/TIME PROCEDURE ORDERING PROVIDER [id number] 05/16/2021 09:51 EDT CR Abdomen AP MD. SHANEKA, CARINE Hastings CPT code 11592 Reason For Exam (CR Abdomen AP) MRI [...] & acceptable for analysis. Test Performed by [facility], [address] [place] [address] [facility] Work Phone: [facility] Work Phone: Add on test from HISon 05-15 Add on test from HIS Accepted Normal [facility] Comment on above: Result Comment: Spec imen available & acceptable for analysis. Performed By: #### T ROPN, MG3, HA1C2, HEMOG, CMP3M, LIPD2 #### [facility] [address] [place] [address] BMP, Whole Blood (POCT)on Anion gap [Moles/Vol] 10.00 mmol/L Normal 3.00-13.00 S [facility] Comment on above: Performed By: #### T ROPN, MG3, HA1C2, HEMOG, CMP3M, LIPD2 #### [address] [address] [place] [address] Calcium, Ionized WB 4.6 mg/dL Normal 4.3-5.2 [facility] Comment on above: Result Comment: Perf ormed by [employer] CLIA ID:[id number] [place], [place] Performed By: #### T ROPN, MG3, HA1C2, HEMOG, CMP3M, LIPD2 #### [address] [address] [place] [address] Chloride [Moles/Vol] 106 mmol/L Normal 98-114 [facility] Comment on above: Performed By: #### T ROPN, MG3, HA1C2, HEMOG, CMP3M, LIPD2 #### [facility] [address] [place] [address] CO2 [Moles/Vol] 22 mmol/L Normal 21-29 [facility] Comment on above: Performed By: #### T ROPN, MG3, HA1C2, HEMOG, CMP3M, LIPD2 #### [facility] [address] [place] [address] Creatinine [Mass/Vol] 0.90 mg/dL Normal 0.60-1.30 [facility] Comment on above: Performed By: #### T ROPN, MG3, HA1C2, HEMOG, CMP3M, LIPD2 #### [facility] [address] [place] [address] GFR/1.73 sq M.predicted among blacks MDRD (S/P/Bld) [Vol rate/Area] mL/min/{1.73_m2} Normal >60 [facility] Comment on above: Performed By: #### T ROPN, MG3, HA1C2, HEMOG, CMP3M, LIPD2 #### [facility] [address], [place] GFR/1.73 sq M.predicted among non-blacks MDRD (S/P/Bld) [Vol rate/Area] 87.7 mL/min/{1.73_m2} Normal >60 [facility] Comment on above: Result Comment: KDIG O [...] ROPN, MG3, HA1C2, HEMOG, CMP3M, LIPD2 #### [facility] [address] [place], [place] Glucose [Mass/Vol] 111 mg/dL High 70-100 [facility] Comment on above: Performed By: #### T ROPN, MG3, HA1C2, HEMOG, CMP3M, LIPD2 #### [facility] [address] [place], [place] Potassium [Moles/Vol] 5.4 mmol/L High 3.4-5.1 [facility] Comment on above: Performed By: #### T ROPN, MG3, HA1C2, HEMOG, CMP3M, LIPD2 #### [address] [place] [address] Sodium [Moles/Vol] 138 mmol/L Normal 133-145 [facility] Comment on above: Performed By: #### T ROPN, MG3, HA1C2, HEMOG, CMP3M, LIPD2 #### [address] [place] [address] Urea nitrogen [Mass/Vol] 21 mg/dL Normal 4-22 [facility] Comment on above: Performed By: #### T ROPN, MG3, HA1C2, HEMOG, CMP3M, LIPD2 #### [address] [address] [place] [address] CBCOrdered By: Tono iBrch on 05-15-2021 Hematocrit (Bld) [Volume fraction] 39.1 % Low 40.0 - 52.0 % [facility] Work Phone: Hemoglobin.gastrointes tinal spec 1 Ql (Stl) 13.2 g/dL 13.0 - 18.0 g/dL [facility] Work Phone: Interpretation and review of laboratory results Abnormal [facility] Work Phone: [phone] MCH (RBC) [Entitic mass] 26.5 pg 26.0 - 34.0 pg [facility] Work Phone: [phone] MCHC (RBC) [Mass/Vol] 33.8 % 32.0 - 36.0 % [facility] Work Phone: MCV (RBC) [Entitic vol] 78.6 fL Low 80.0 - 98.0 fL [facility] Work Phone: Platelet distribution width (Bld) [Ratio] 14.6 % High 11.5 - 14.5 % [facility] Work Phone: Platelet mean volume (Bld) [Entitic vol] 7.6 fL 7.4 - 10.4 fL [facility] Work Phone: Platelets (Bld) [#/Vol] 150 10*3/uL 140 - 440 10*3/uL [facility] Work Phone: RBC (Bld) [#/Vol] 4.97 10*6/uL 4.40 - 5.9 0 10*6/uL [facility] Work Phone: WBC (Bld) [#/Vol] 8.3 10*3/uL 3.6 - 10.7 10*3/uL [facility] Work Phone: Test Performed by [facility], [address] [place] [address] [facility] Work Phone: [facility] Work Phone: CBCOrdered By: Unknown Resul t on 05-15-2021 Hematocrit (Bld) [Volume fraction] 39.5 % Low 40.0 - 52.0 % [facility] Work Phone: Hemoglobin.gastrointes tinal spec 1 Ql (Stl) 13.7 g/dL 13.0 - 18.0 g/dL [facility] Work Phone: Interpretation and review of laboratory results Abnormal [facility] Work Phone: MCH (RBC) [Entitic mass] 27.2 [...] 5.04 10*6/uL 4.40 - 5.9 0 10*6/uL [facility] Work Phone: [phone] WBC (Bld) [#/Vol] 6.2 10*3/uL 3.6 - 10.7 10*3/uL [employer] Work Phone: CR Chest Portableon 05-15-20 21 CR Chest Portable Patient Name: KENN VAUGHN [id number] Diagnostic Radiology ACCESSION EXAM DATE/TIME PROCEDURE ORDERING PROVIDER [id number] 05/15/2021 10:42 EDT CR Chest Portable MD BIRCH DOUGALAS R. CPT code 70082 Reason For Exam (CR Chest Portable) stroke Report Portable chest /05/29: Clinical Information: Stroke. Findings: A single AP portable view of the chest was obtained at 1020 hours. Comparison was made to the prior study 03/15/2021. The Mdkjsq-u-Yoog type catheter is now present right. The [...] Transcribed Date and Time: 05/15/2021 10:[address] [facility] [address] Brain PerfusionOrdered By : Tono Birch on 05-15-2021 Patient Name: [facility]ENN [facility]GHN [facility] [id number] Computed Tomography ACCESSION EXAM DATE/TIME PROCEDURE ORDERING PROVIDER [id number] 05/15/2021 09:[address] Cerebral Perfusion MD [...] Phone: Ronnie, [facility] Incoming Radiology Results From [facility] - 05/15/2021 10:18 AM EDT Patient Name: KENN ARSHAD [facility] [id number] Computed Tomography ACCESSION EXAM DATE/TIME PROCEDURE ORDERING PROVIDER [id number] 05/15/2021 09:[address] Cerebral Perfusion MD [...] Cerebral Perfusion Patient Name: KENN STEWART Sr [facility]#: [id number] Computed Tomography ACCESSION EXAM DATE/TIME PROCEDURE ORDERING PROVIDER [id number] 05/15/2021 09:[address] Cerebral Perfusion MD [...] Transcribed Date and Time: 05/15/2021 9:[address] [facility] [address] HEAD WO CONTRASTOrdered B y: Mauri Hernandez on 05-15-2021 Patient Name: KENN VAUGHN Sr Computed Tomography ACCESSION EXAM DATE/TIME PROCEDURE ORDERING PROVIDER [id number] 05/15/2021 14:[address] Head or Brain w/o [id number] -MAURI HERNANDEZ Contrast CPT code 09032 Reason For Exam (CT Head or Brain [...] Phone: Ronnie, [facility] Incoming Radiology Results From [facility] - 05/15/2021 2:54 PM EDT Patient Name: KENN [facility]SHAD [facility] [id number] Computed Tomography ACCESSION EXAM DATE/TIME PROCEDURE ORDERING PROVIDER [id number] 05/15/2021 14:[address] Head or Brain w/o [id number] -MAURI HERNANDEZ Contrast CPT code 04316 Reason For Exam (CT Head or Brain [...] on 05-15-2021 Patient Name: [facility]N [facility] [id number] Computed Tomography ACCESSION EXAM DATE/TIME PROCEDURE ORDERING PROVIDER [id number] 05/15/2021 09:[address] Head or Brain w/o MD RAISSA, RODRI Wilcox Contrast CPT code 91041 Reason For Exam (CT Head or Brain [...] Phone: Ronnie, Philip Incoming Radiology Results From [facility] - 05/15/2021 9:52 AM EDT Patient Name: KENN ARSHAD [facility] [id number] Computed Tomography ACCESSION EXAM DATE/TIME PROCEDURE ORDERING PROVIDER [id number] 05/15/2021 09:[address] Head or Brain w/o MD BIRCH DOUGALAS R. Contrast CPT code 02332 Reason For Exam (CT Head or Brain [...] 09:35 EDT by MD JONES ANTHONY J [facility] Work Phone: [facility] Work Phone: CT Head or Brain w/o Contras ton 05-15-2021 CT Head or Brain w/o Contrast Patient Name: KENN ARSHAD Sr Computed Tomography ACCESSION EXAM DATE/TIME PROCEDURE ORDERING PROVIDER [id number] 05/15/2021 14:[address] Head or Brain w/o [id number] -MAURI HERNANDEZ Contrast CPT code 81037 Reason For Exam (CT Head or Brain [...] Transcribed Date and Time: 05/15/2021 2:[address] [facility] [address] Head or Brain w/o Contrast Patient Name: KENN ARSHAD Sr [facility]#: [id number] Computed Tomography ACCESSION EXAM DATE/TIME PROCEDURE ORDERING PROVIDER [id number] 05/15/2021 09:[address] Head or Brain w/o MD RAISSA, RODRI Loredo CPT code 51854 Reason For Exam (CT Head or Brain w/o Contrast) stroke Addendum Examination: CT Head Clinical Information: stroke team, right-sided weakness Comparison: None Findings: Serial axial [address] images were obtained through the skull without intravenous contrast. Coronal, sagittal, and axial images were reconstructed. The ventricular system and cortical sulci are within normal limits without significant volume loss. Corenjo white differentiation is well preserved. Trace periventricular [...] 09:35 EDT by MD JONES ANTHONY J [facility] CTA Head Neck W WO ContrastO rdered By: Tono Birch on 05-15-2021 [id number] Computed Tomography ACCESSION EXAM DATE/TIME PROCEDURE ORDERING PROVIDER [id number] 05/15/2021 09:53 EDT CTA Head/Neck w/ + w/o MD BIRCH DOUGALAS R. contrast CPT code 60385 [id number] Reason For Exam (CTA Head/Neck w/ [...] Phone: Ronnie, [facility] Incoming Radiology Results From [facility] - 05/15/2021 10:18 AM EDT [facility]: [facility] [id number] Computed Tomography ACCESSION EXAM DATE/TIME PROCEDURE ORDERING PROVIDER [id number] 05/15/2021 09:53 EDT CTA Head/Neck w/ + w/o MD RAISSA, RODRI Wilcox contrast CPT code 14518 [id number] [id number] Reason For Exam (CTA Head/Neck w/ [...] w/o contrast Patient [facility]: [id number] Computed Tomography ACCESSION EXAM DATE/TIME PROCEDURE ORDERING PROVIDER [id number] 05/15/2021 09:53 EDT CTA Head/Neck w/ + w/o MD RAISSA, RODRI Wilcox contrast CPT code 99998 [id number] Q9967 Reason For Exam (CTA Head/Neck w/ [...] Transcribed Date and Time: 05/15/2021 9:57 Normal [facility] Complete Urinalysison 2020 Appearance (U) Clear Normal Clear [facility] Comment on above: Result Comment: . Performed By: #### T ROPN, MG3, HA1C2, HEMOG, CMP3M, LIPD2 #### [facility] [address], [place] Bacteria LM.HPF (Urine sed) [#/Area] Negative Normal Negative [facility] Comment on above: Result Comment: . Performed By: #### T ROPN, MG3, HA1C2, HEMOG, CMP3M, LIPD2 #### [facility] [address], [place] Bilirubin,Urine Negative Normal Negative [facility] Comment on above: Result Comment: . Performed By: #### T ROPN, MG3, HA1C2, HEMOG, CMP3M, LIPD2 #### [facility] [address], [place] Color (U) Light-Yellow Normal Lt. Yellow [facility] Comment on above: Result Comment: . Performed By: #### T ROPN, MG3, HA1C2, HEMOG, CMP3M, LIPD2 #### [facility] [address], [place] Glucose Ql (U) Normal Normal Normal (<70) [facility] Comment on above: Result Comment: . Performed By: #### T ROPN, MG3, HA1C2, HEMOG, CMP3M, LIPD2 #### [place] [address], [place] Ketone,Urine Negative Normal Negative [facility] Comment on above: Result Comment: . Performed By: #### T ROPN, MG3, HA1C2, HEMOG, CMP3M, LIPD2 #### [place] [address], [place] Leukocytes,Urine Negative Normal Negative [facility] Comment on above: Result Comment: . Performed By: #### T ROPN, MG3, HA1C2, HEMOG, CMP3M, LIPD2 #### [place] [address], [place] Mucous Threads Few Normal Negative [facility] Comment on above: Result Comment: . Performed By: #### T ROPN, MG3, HA1C2, HEMOG, CMP3M, LIPD2 #### [place] [address], [place] Nitrites,Urine Negative Normal Negative [facility] Comment on above: Result Comment: . Performed By: #### T ROPN, MG3, HA1C2, HEMOG, CMP3M, LIPD2 #### [place] [address], [place] Occult Blood,Urine 0.2 mg/dL Abnormal Negative [facility] Comment on above: Result Comment: . Performed By: #### T ROPN, MG3, HA1C2, HEMOG, CMP3M, LIPD2 #### [place] [address], [place] pH,Urine 6.5 Normal 5.0-8.0 [facility] Comment on above: Result Comment: . Performed By: #### T ROPN, MG3, HA1C2, HEMOG, CMP3M, LIPD2 #### [place] [address], [place] Protein (U) [Mass/Vol] 200 mg/dL Abnormal Negative [facility] Comment on above: Result Comment: . Performed By: #### T ROPN, MG3, HA1C2, HEMOG, CMP3M, LIPD2 #### [place] [address], [place] RBC, Urine 6 - 10 Abnormal 0-2 [facility] Comment on above: Result Comment: . Performed By: #### T ROPN, MG3, HA1C2, HEMOG, CMP3M, LIPD2 #### [place] [address] [place] [address] Specific [place],Urine > 1.030 Abnormal 1.005 - 1.030 [facility] Comment on above: Result Comment: . Performed By: #### T ROPN, MG3, HA1C2, HEMOG, CMP3M, LIPD2 #### [place] [address], [place] Squamous Epithelial Negative Normal 3-5 [facility] Comment on above: Result Comment: . Performed By: #### T ROPN, MG3, HA1C2, HEMOG, CMP3M, LIPD2 #### [place] [address] [place] [address] Urobilinogen,Urine Normal Normal Normal (0-1) [facility] Comment on above: Result Comment: . Performed By: #### T ROPN, MG3, HA1C2, HEMOG, CMP3M, LIPD2 #### [place] [address], [place] WBC, Urine 0 - 2 Normal 0-5 [facility] Comment on above: Result Comment: . Performed By: #### T ROPN, MG3, HA1C2, HEMOG, CMP3M, LIPD2 #### [place] [address] [place] [address] ED Provider Noteon ED Provider Note Emergency Department Encounter [facility] EMERGENCY DEPT Patient: Kenn Arshad . : 1955 Date of Evaluation: 05/15/2021 ED Provider: Tono Birch MD Chief Complaint No chief complaint on file. MRACIE Arshad . is a 65 y.o. male [...] Dr. Mcguire, neg stress test 08/26 at [facility] ? COPD (chronic obstructive pulmonary disease) (HCC) [...] carcinoma) of skin 2011 scalp - [facility] [place] ? Hypercholesterolemia LDL ? Mass of right [...] SMOKER, no excessive ETOH. 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 Social Determinants of Health Financial Resource [...] Gatherings with Friends and Family: ? Attends [employer] Services: ? Active Member of Clubs or [...] daily for (more content not included)... Normal [facility] EthanolOrdered By: Unknown R esult on 05-15-2021 Ethanol Lvl <0.010 0.000 - 0.010 g/dL [employer] Work Phone: Comment on above: NOTE: This result is for medical treatment only. Analysis performed using non-forensic procedures. Test Performed by [facility], [address] [place] [address] [employer] Work Phone: [employer] Work Phone: Ethanol Serum/Plasmaon 05-15 Ethanol-Serum/Plasma < 0.010 Normal 0.000-0.010 [facility] Comment on above: Result Comment: NOTE : This result is for medical treatment only. Analysis performed using non-forensic procedures. Performed By: #### H EMOG, TROPN #### [facility] [employer] [address], [place] Glucose,Bedsideon 05-15-2021 Glucose [Mass/Vol] 118 mg/dL High 70-100 [facility] [employer] Comment on above: Result Comment: Test performed by glucose meter. Results may be 10%-15% lower than serum/plasma values. (CLIA ID [id number]) Performed By: #### T ROPN, MG3, HA1C2, HEMOG, CMP3M, LIPD2 #### [facility] [employer] [address], [place] HCG Qualitative, SerumOrdere d By: Tono Birch on 05-15-2021 hCG Qual Disregard [employer] Work Phone: Comment on above: Reference Range: NEG ATIVE CORRECTED RESULT...Previous above value was NEGATIVE, verified on 05/15/21 at 10:01 by 0SW . Effective 01/20/2020, the reference interval for the qualitative test has been updated. This test detects hCG at concentrations of 10 mIU/L or greater in serum. Test Performed by [facility] [employer], [address] [place] [address] [employer] Work Phone: [employer] Work Phone: Hemogramon 05-15-2021 Erythrocyte distribution width (RBC) [Ratio] 14.6 % High 11.5-14.5 [facility] [employer] Comment on above: Performed By: #### H EMOG, TROPN #### [facility] [address], [place] Hematocrit (Bld) [Volume fraction] 39.1 % Low 40.0-52.0 [facility] Comment on above: Performed By: #### H EMOG TROPN #### [facility] [address], [place] Hemoglobin (Bld) [Mass/Vol] 13.2 g/dL Normal 13.0-18.0 [facility] Comment on above: Performed By: #### H EMOG, TROPN #### [facility] [address], [place] MCH (RBC) [Entitic mass] 26.5 pg Normal 26.0-34.0 [facility] Comment on above: Performed By: #### H EMOG TROPN #### [facility] [address], [place] MCHC 33.8 % Normal 32.0-36.0 [facility] Comment on above: Performed By: #### H EMOG TROPN #### [facility] [address], [place] MCV (RBC) [Entitic vol] 78.6 fL Low 80.0-98.0 [facility] Comment on above: Performed By: #### H EMOG TROPN #### [facility] [address], [place] Platelet mean volume (Bld) [Entitic vol] 7.6 fL Normal 7.4-10.4 [facility] Comment on above: Performed By: #### H EMOG, TROPN #### [facility] [address], [place] Platelets (Bld) [#/Vol] 150 10*3/uL Normal 140-440 [facility] Comment on above: Performed By: #### H EMOG, TROPN #### [facility] [address], [place] RBC (Bld) [#/Vol] 4.97 10*6/uL Normal 4.40-5.90 [facility] Comment on above: Performed By: #### H EMOG, TROPN #### [facility] [address] [place] [address] WBC (Bld) [#/Vol] 8.3 10*3/uL Normal 3.6-10.7 [facility] Comment on above: Performed By: #### H CHARLOTTE IVAN #### [place] [address], [place] Erythrocyte distribution width (RBC) [Ratio] 14.7 % High 11.5-14.5 [facility] Comment on above: Performed By: #### H CHARLOTTE IVAN #### [place] [address], [place] Hematocrit (Bld) [Volume fraction] 39.5 % Low 40.0-52.0 [facility] Comment on above: Performed By: #### H CHARLOTTE IVAN #### [place] [address], [place] Hemoglobin (Bld) [Mass/Vol] 13.7 g/dL Normal 13.0-18.0 [facility] Comment on above: Performed By: #### H CHARLOTTE IVAN #### [place] [address], [place] MCH (RBC) [Entitic mass] 27.2 pg Normal 26.0-34.0 [facility] Comment on above: Performed By: #### H CHARLOTTE IVAN #### [place] [address], [place] MCHC 34.8 % Normal 32.0-36.0 [facility] Comment on above: Performed By: #### H CHARLOTTE IVAN #### [place] [address], [place] MCV (RBC) [Entitic vol] 78.3 fL Low 80.0-98.0 [facility] Comment on above: Performed By: #### H CHARLOTTE IVAN #### [place] [address], [place] Platelet mean volume (Bld) [Entitic vol] 8.0 fL Normal 7.4-10.4 [facility] Comment on above: Performed By: #### H CHARLOTTE IVAN #### [address] [address] Platelets (Bld) [#/Vol] 144 10*3/uL Normal 140-440 [facility] Comment on above: Performed By: #### H DUY IVANN #### [address] [address] RBC (Bld) [#/Vol] 5.04 10*6/uL Normal 4.40-5.90 [facility] Comment on above: Performed By: #### H MONCHO TROPN #### [address] [address] WBC (Bld) [#/Vol] 6.2 10*3/uL Normal 3.6-10.7 [facility] Comment on above: Performed By: #### H DUY IVANN #### [address] [address] No Panel InformationOrdered By: Unknown Result on 05-15-2021 Test Performed by [facility], [address] [place] [address] [facility] Work Phone: [phone] [employer] Work Phone: [phone] POC BMP, WHOLE BLOODOrdered By: Unknown Result on 05-15-2021 Anion gap [Moles/Vol] 10.00 mmol/L 3.00 - 13.00 mmol/L [employer] Work Phone: Calcium [Mass/Vol] 4.6 mg/dL 4.3 - 5.2 mg/dL [employer] Work Phone: Comment on above: Performed by [employer] CLIA ID:[id number] [place], [place] Chloride [Moles/Vol] 106 mmol/L 98 - 11 4 mmol/L [employer] Work Phone: CO2 [Moles/Vol] 22 mmol/L 21 - 29 mmol/L [facility] Work Phone: Creatinine [Mass/Vol] 0.90 mg/dL 0.60 - 1.30 mg/dL [facility] Work Phone: GFR Non- 87.7 mL/min >60 [employer] Work Phone: Comment on above: KDIGO guidelines [...] rate/Area] mL/min/{1.73_m2} >60 mL/min [facility] Work Phone: [phone] Glucose [Mass/Vol] 111 mg/dL High 70 - 100 mg/dL [employer] Work Phone: [phone] Interpretation and review of laboratory results Abnormal [employer] Work Phone: [phone] Potassium [Moles/Vol] 5.4 mmol/L High 3.4 - 5.1 mmol/L [employer] Work Phone: [phone] Sodium [Moles/Vol] 138 mmol/L 133 - 145 mmol/L [facility] Work Phone: [phone] Urea nitrogen [Mass/Vol] 21 mg/dL 4 - 22 mg/dL [employer] Work Phone: [phone] Test Performed by [facility], [address] [place] [address] [employer] Work Phone: [phone] [facility] Work Phone: [phone] POCT GlucoseOrdered By: Ginette Esposito on 05-15-2021 Glucose [Mass/Vol] 118 mg/dL High 70 - 100 mg/dL [employer] Work Phone: Comment on above: Test performed by ucose meter. Results may be 10%-15% lower than serum/plasma values. (CLIA ID [id number]) Interpretation and review of laboratory results Abnormal [facility] Work Phone: Test Performed by [facility], [address] [place] [address] [facility] Work Phone: [facility] Work Phone: Protime AND APTTon aPTT Coag (Bld) [Time] 27.1 s Normal 20.0-30.5 [facility] Comment on above: Result Comment: NOTE : The therapeutic time for Heparin anticoagulation, based on Xa activity inhibition, is an APTT of 46-80 seconds. Performed By: #### H CHARLOTTE IVAN #### [address] [address] INR 1.0 Normal 0.9-1.1 [facility] Comment on above: Result Comment: Tim mmended [...] Performed By: #### H CHARLOTTE IVAN #### [address] [address] PT Coag (PPP) [Time] 10.7 s Normal 9.0-12.0 [facility] Comment on above: Result Comment: . Performed By: #### H DUY IVANN #### [address] [address] Protime/INR & PTTOrdered By: Unknown Result on 05-15-2021 aPTT Coag (Bld) [Time] 27.1 s 20.0 - 30.5 s [facility] Work Phone: Comment on above: NOTE: The therapeuti c time for Heparin anticoagulation, based on Xa activity inhibition, is an APTT of 46-80 seconds. INR Coag (Bld) [Relative time] 1.0 {INR} [employer] Work Phone: Comment on above: Recommended Anticoag [...] [Time] 10.7 s 9.0 - 12.0 s [employer] Work Phone: Comment on above: . TroponinOrdered By: Tono Birch on 05-15-2021 Interpretation and review of laboratory results Abnormal [employer] Work Phone: [phone] Troponin I.cardiac [Mass/Vol] 0.052 ng/mL High 0.000 - 0.034 ng/mL [employer] Work Phone: Comment on above: . Test Performed by [employer], [facility] [place] [address] [employer] Work Phone: [employer] Work Phone: TroponinOrdered By: Unknown Result on 05-15-2021 Interpretation and review of laboratory results Abnormal [employer] Work Phone: [phone] Troponin I.cardiac [Mass/Vol] 0.039 ng/mL High 0.000 - 0.034 ng/mL [employer] Work Phone: Comment on above: Slightly hemolysed, interpret with caution. . Test Performed by [employer], [facility] [place] [address] [employer] Work Phone: [phone] [employer] Work Phone: [phone] Troponin Ion 05-15-2021 Troponin I.cardiac [Mass/Vol] 0.052 ng/mL High 0.000-0.034 [employer] Comment on above: Result Comment: . Performed By: #### H EMOSherie TROPN #### [employer] [facility] [address] [place] [address] Troponin I.cardiac [Mass/Vol] 0.039 ng/mL High 0.000-0.034 [facility] [employer] Comment on above: Result Comment: Slig htly hemolysed, interpret with caution. . Performed By: #### H EMOG, TROPN #### [facility] [address] [place] [address] UrinalysisOrdered By: Amparo Birch on 05-15-2021 Appearance (U) Clear Clear NA [employer] Work Phone: [phone] Comment on above: . Bacteria, UA Negative Negative /[HPF] [employer] Work Phone: [phone] Comment on above: . Bilirubin Urine Negative Negative mg/dL [employer] Work Phone: [phone] Comment on above: . Color (U) Light-Yellow Lt. Yellow NA [employer] Work Phone: [phone] Comment on above: . Glucose, Ur Normal Normal (<70) mg/dL [employer] Work Phone: [phone] Comment on above: . Interpretation and review of laboratory results Abnormal [employer] Work Phone: [phone] Ketones Ql (U) Negative Negative mg/dL [employer] Work Phone: [phone] Comment on above: . LEUKOCYTES, UA Negative Negative Meera/uL [employer] Work Phone: [phone] Comment on above: . Mucous Threads Few Negative /[LPF] [employer] Work Phone: [phone] Comment on above: . Nitrite, Urine Negative Negative NA [employer] Work Phone: [phone] Comment on above: . Occult Blood,Urine 0.2 mg/dL Abnormal Negative [employer] Work Phone: [phone] Comment on above: . pH (U) 6.5 [pH] [employer] Work Phone: [phone] Comment on above: . Protein (U) [Mass/Vol] 200 mg/dL Abnormal Negative [employer] Work Phone: [phone] Comment on above: . RBC, UA 6-10 Abnormal 0 - 2 /[HPF] [facility] Work Phone: Comment on above: . Specific [place], Urine >1.030 Abnormal [facility] Work Phone: Comment on above: . Squam Epithel, UA Negative 3 - 5 /[HPF] [facility] Work Phone: Comment on above: . Urobilinogen, Urine Normal Normal ( 0-1) mg/dL [facility] Work Phone: Comment on above: . WBC, UA 0-2 0 - 5 /[HPF] [facility] Work Phone: Comment on above: . Test Performed by [facility], [address] [place] [address] [facility] Work Phone: [facility] Work Phone: XR CHEST PORTABLEOrdered By: Tono Birch on 05-15-2021 Patient Name: KENN VAUGHN Sr Diagnostic Radiology ACCESSION EXAM DATE/TIME PROCEDURE ORDERING PROVIDER [id number] 05/15/2021 10:42 EDT CR Chest Portable MD BIRCH DOUGALAS R. CPT code 45199 Reason For Exam (CR Chest Portable) stroke Report Portable chest /05/29: Clinical Information: Stroke. Findings: A single AP portable view of the chest was obtained at 1020 hours. Comparison was made to the prior study 03/15/2021. The Teirac-h-Njta type catheter is now present right. The [...] - 05/15/2021 10:43 AM EDT Patient Name: [facility]KNN [facility]AD [id number] Radiology ACCESSION EXAM DATE/TIME PROCEDURE ORDERING PROVIDER [id number] 05/15/2021 10:42 EDT CR Chest Portable MD RAISSA, RODRI Wilcox CPT code 13860 Reason For Exam (CR Chest Portable) stroke Report Portable chest /05/29: Clinical Information: Stroke. Findings: A single AP portable view of the chest was obtained at 1020 hours. Comparison was made to the prior study 03/15/2021. The Lutopc-p-Hvoq type catheter is now present right. The [...] RISA Transcribed Date and Time: 05/15/2021 10:41 [facility] Work Phone: [facility] Work Phone: hCG Qual Pregon 05-15-2021 hCG Qual Preg Disregard Normal [facility] Comment on above: Result Comment: Refe rence Range: NEGATIVE CORRECTED RESULT...Previous above value was NEGATIVE, verified on 05/15/21 at 10:01 by 0SW . Effective 01/20/2020, the reference interval for the qualitative test has been updated. This test detects hCG at concentrations of 10 mIU/L or greater in serum. Performed By: #### H CHARLOTTE IVAN #### [facility] [address] [place] [address] Basic Metabolic Panelon 05-0 Calcium [Mass/Vol] 8.9 mg/dL Normal 8.4-10.4 [facility] Comment on above: Performed By: #### H CHARLOTTE IVAN #### [facility] [address], [place] Anion gap [Moles/Vol] 4 mmol/L Normal 3-13 [facility] Comment on above: Performed By: #### H DUY IVANN #### [facility] [address], [place] CO2 [Moles/Vol] 27 mmol/L Normal 22-30 [facility] Comment on above: Performed By: #### H DUY IVANN #### [facility] [address], [place] Creatinine [Mass/Vol] 0.75 mg/dL Normal 0.52-1.25 [facility] Comment on above: Performed By: #### H DUY IVANN #### [facility] [address], [place] eGFR OTHER > 90.0 Normal >60 [facility] Comment on above: Result Comment: KDIG O [...] Performed By: #### H CHARLOTTE IVAN #### [facility] [address], [place] GFR/1.73 sq M.predicted among blacks MDRD (S/P/Bld) [Vol rate/Area] mL/min/{1.73_m2} Normal >60 [facility] Comment on above: Performed By: #### H CHARLOTTE IVAN #### [facility] [address] [place] [address] Glucose [Mass/Vol] 105 mg/dL High 70-100 [facility] Comment on above: Performed By: #### H CHARLOTTE IVAN #### [facility] [address], [place] Urea nitrogen [Mass/Vol] 15 mg/dL Normal 7-20 [facility] Comment on above: Performed By: #### H CHARLOTTE IVAN #### [facility] [address], [place] Chloride [Moles/Vol] 102 mmol/L Normal 98-107 [facility] Comment on above: Performed By: #### H CHARLOTTE IVAN #### [place] [address], [place] Potassium [Moles/Vol] 4.0 mmol/L Normal 3.5-5.1 [facility] Comment on above: Performed By: #### CHARLOTTE MEDINA #### [facility] [address], [place] Sodium [Moles/Vol] 133 mmol/L Low 135-145 [facility] Comment on above: Performed By: #### H CHARLOTTE IVAN #### [place] [address], [place] Basic Metabolic PanelOrdered By: Evelio Hernandez on 03-15-2021 Anion gap [Moles/Vol] 4 mmol/L 3 - 13 mmol/L [facility] Work Phone: Calcium [Mass/Vol] 8.9 mg/dL 8.4 - 10. 4 mg/dL [facility] Work Phone: Chloride [Moles/Vol] 102 mmol/L 98 - 10 7 mmol/L [facility] Work Phone: CO2 [Moles/Vol] 27 mmol/L 22 - 30 mmol/L [facility] Work Phone: Creatinine [Mass/Vol] 0.75 mg/dL 0.52 - 1.25 mg/dL [facility] Work Phone: EGFR IF NonAfrican Trinidadian >90.0 >60 mL/min [employer] Work Phone: [phone] Comment on above: KDIGO guidelines pro vide [...] MDRD (S/P/Bld) [Vol rate/Area] mL/min/{1.73_m2} >60 mL/min [employer] Work Phone: Glucose [Mass/Vol] 105 mg/dL High 70 - 100 mg/dL [employer] Work Phone: [phone] Interpretation and review of laboratory results Abnormal [employer] Work Phone: Potassium [Moles/Vol] 4.0 mmol/L 3.5 - 5.1 mmol/L [employer] Work Phone: Sodium [Moles/Vol] 133 mmol/L Low 135 - 145 mmol/L [employer] Work Phone: [phone] Urea nitrogen (BldV) [Mass/Vol] 15 mg/dL 7 - 20 mg/dL [employer] Work Phone: [phone] Test Performed by [facility], [address] [place] [address] [employer] Work Phone: [phone] CBC Auto DifferentialOrdered By: Evelio Hernandez on 03-15-2021 Absolute Baso # 0.0 10*3/uL 0.0 - 0.2 10*3/uL [employer] Work Phone: [phone] Absolute Neut # 3.8 10*3/uL 1.8 - [...] Interpretation and review of laboratory results Abnormal [employer] Work Phone: [phone] Lymphocytes (Bld) [#/Vol] [...] (Bld) 8.3 % 2.0 - 10.0 % [employer] Work Phone: Platelet distribution width (Bld) [Ratio] 14.9 % High 11.5 - 14.5 % [employer] Work Phone: [phone] Platelet mean volume (Bld) [Entitic vol] 8.1 fL 7.4 - 10.4 fL [employer] Work Phone: [phone] Platelets (Bld) [#/Vol] 143 10*3/uL 140 - 440 10*3/uL [facility] Work Phone: [phone] RBC (Bld) [#/Vol] 4.35 10*6/uL Low 4.40 - 5.9 0 10*6/uL [employer] Work Phone: [phone] WBC (Bld) [#/Vol] 5.5 10*3/uL 3.6 - 10.7 10*3/uL [employer] Work Phone: Test Performed by [address] [address] [employer] Work Phone: CR Chest Portableon 03-15-20 21 CR Chest Portable Patient Name: [id number] Diagnostic Radiology ACCESSION EXAM DATE/TIME PROCEDURE ORDERING PROVIDER [id number] 03/15/2021 10:50 EDT CR Chest Portable EVELIO HERNANDEZ CPT code 43541 Reason For Exam (CR Chest Portable) post-chest [...] Transcribed Date and Time: 03/15/2021 10:55 Normal [facility] CR Chest Portable Patient Name: [facility]N [id number] Diagnostic Radiology ACCESSION EXAM DATE/TIME PROCEDURE ORDERING PROVIDER [id number] 03/15/2021 06:05 EDT CR Chest Portable [id number] -MERLENE CASTRO CPT code 81942 Reason For Exam (CR Chest Portable) s/p [...] Transcribed Date and Time: 03/15/2021 9:49 Normal [facility] Hemogram w/ Autodiffon 03-15 Abs Baso Cnt 0.0 10*3/uL Normal 0.0-0.2 [facility] Comment on above: Performed By: #### H CHARLOTTE IVAN #### [address] [address] Abs Neutrophile Cnt 3.8 10*3/uL Normal 1.8-7.0 [facility] Comment on above: Performed By: #### H CHARLOTTE IVAN #### [address] [address] Basophils/100 WBC (Bld) 0.6 % Normal 0.0-2.0 [facility] Comment on above: Performed By: #### H CHARLOTTE IVAN #### [facility] [address] [place] [address] Eosinophils (Bld) [#/Vol] 0.2 10*3/uL Normal 0.0-0.5 [facility] Comment on above: Performed By: #### H EMOG TROPN #### [facility] [address] [place] [address] Eosinophils/100 WBC (Bld) 4.5 % Normal 1.0-6.0 [facility] Comment on above: Performed By: #### H EMOG TROPN #### [facility] [address] [place] [address] Erythrocyte distribution width (RBC) [Ratio] 14.9 % High 11.5-14.5 [facility] Comment on above: Performed By: #### H EMOG TROPN #### [place] [address] [place] [address] Granulocytes/100 WBC (Bld) 69.9 % Normal 40.0-80.0 [facility] Comment on above: Performed By: #### H EMOG TROPN #### [facility] [address], [place] Hematocrit (Bld) [Volume fraction] 35.2 % Low 40.0-52.0 [facility] Comment on above: Performed By: #### H EMOG, TROPN #### [facility] [address] [place] [address] Hemoglobin (Bld) [Mass/Vol] 12.0 g/dL Low 13.0-18.0 [facility] Comment on above: Result Comment: Repe ated. Performed By: #### H EMOG TROPN #### [facility] [address] [place] [address] Lymphocytes (Bld) [#/Vol] 0.9 10*3/uL Low 1.0-4.3 [facility] Comment on above: Performed By: #### H EMOG, TROPN #### [facility] [address] [id number] Lymphocytes/100 WBC (Bld) 16.7 % Low 20.0-40.0 [facility] Comment on above: Performed By: #### H EMOG, TROPN #### [facility] [address], [place] MCH (RBC) [Entitic mass] 27.7 pg Normal 26.0-34.0 [facility] Comment on above: Performed By: #### H EMOG, TROPN #### [facility] [address], [place] MCHC 34.3 % Normal 32.0-36.0 [facility] Comment on above: Performed By: #### H EMOG, TROPN #### [facility] [address], [place] MCV (RBC) [Entitic vol] 80.9 fL Normal 80.0-98.0 [facility] Comment on above: Performed By: #### H EMOG, TROPN #### [place] [address], [place] Monocytes (Bld) [#/Vol] 0.5 10*3/uL Normal 0.0-0.8 [facility] Comment on above: Performed By: #### H EMOG TROPN #### [facility] [address], [place] Monocytes/100 WBC (Bld) 8.3 % Normal 2.0-10.0 [facility] Comment on above: Performed By: #### H EMOG, TROPN #### [facility] [address], [place] Platelet mean volume (Bld) [Entitic vol] 8.1 fL Normal 7.4-10.4 [facility] Comment on above: Performed By: #### H EMOG, TROPN #### [facility] [address], [place] Platelets (Bld) [#/Vol] 143 10*3/uL Normal 140-440 [facility] Comment on above: Performed By: #### H EMOG, TROPN #### [facility] [address], [place] RBC (Bld) [#/Vol] 4.35 10*6/uL Low 4.40-5.90 [facility] Comment on above: Performed By: #### H CHARLOTTE IVAN #### [facility] [address] [place] [address] WBC (Bld) [#/Vol] 5.5 10*3/uL Normal 3.6-10.7 [facility] Comment on above: Performed By: #### H CHARLOTTE IVAN #### [facility] [address] [place] [address] XR CHEST PORTABLEOrdered By: Evelio Hernandez on 03-15-2021 Patient Name: KENN VAUGHN Sr Diagnostic Radiology ACCESSION EXAM DATE/TIME PROCEDURE ORDERING PROVIDER [id number] 03/15/2021 10:50 EDT CR Chest Portable EVELIO HERNANDEZ CPT code 93000 Reason For Exam (CR Chest Portable) post-chest [...] HARLAN Transcribed Date and Time: 03/15/2021 10:55 [facility] Work Phone: Ronnie, [facility] Incoming Radiology Results From [facility] - 03/15/2021 10:57 AM EDT Patient Name: KENN ARSHAD Sr Diagnostic Radiology ACCESSION EXAM DATE/TIME PROCEDURE ORDERING PROVIDER [id number] 03/15/2021 10:50 EDT CR Chest Portable EVELIO HERNANDEZ CPT code 63854 Reason For Exam (CR Chest Portable) post-chest [...] on 03-15-2021 Patient [facility]: [id number] ACCESSION EXAM DATE/TIME PROCEDURE ORDERING PROVIDER [id number] 03/15/2021 06:05 EDT CR Chest Portable [id number] -MERELNE CASTRO CPT code 81748 Reason For Exam (CR Chest Portable) s/p [...] ALFRED Transcribed Date and Time: 03/15/2021 9:49 [facility] Work Phone: Ronnie, [facility] Incoming Radiology Results From [facility] - 03/15/2021 10:02 AM EDT Patient Name: KENN ARSHAD Sr Diagnostic Radiology ACCESSION EXAM DATE/TIME PROCEDURE ORDERING PROVIDER [id number] 03/15/2021 06:05 EDT CR Chest Portable Juan MERLENE AGUILA CPT code 00817 Reason For Exam (CR Chest Portable) s/p [...] ALFRED Transcribed Date and Time: 03/15/2021 9:49 [facility] Work Phone: CR Chest Portableon 03-14-20 CR Chest Portable Patient Name: KENN VAUGHN Sr Diagnostic Radiology ACCESSION EXAM DATE/TIME PROCEDURE ORDERING PROVIDER [id number] 03/14/2021 05:56 EDT CR Chest Portable [id number] -MERLENE CASTRO CPT code 43281 Reason For Exam (CR Chest Portable) s/p [...] Transcribed Date and Time: 03/14/2021 7:55 Normal [facility] EKG 12 leadOrdered By: Isaías Don on 03-14-2021 [facility] Test Date: 2021-03-12 Pat Name: KENN ARSHAD Department: [facility] Room: 1[facility] Gender: M Acute Care Assistant: WILLIAN : 1955 Requested By: MEGHA DON Order Number: [id number] Reading MD: Anand Ramirez Measurements Intervals [place]enton Rate: 66 P: 45 DE: 158 QRS: 216 QRSD: 79 T: 165 QT: 371 QTc: 389 Interpretive Statements Sinus rhythm Normal ECG Electronically Signed On 03-14-2021 8:19:53 EDT by Anand PALACIOS Work Phone: Ronnie, [facility] Incoming Cardiology Results From [facility] - 03/14/2021 8:20 AM EDT [facility] Test Date: 2021-03-12 Pat Name: KENN ARSHAD Department: [facility] Room: 1[facility] Gender: M Acute Care Assistant: DP : 1955 Requested By: MEGHA DON Order Number: [id number] Reading : Anand Ramirez Measurements Intervals [place] Rate: 66 P: 45 DE: 158 QRS: 216 QRSD: 79 T: 165 QT: 371 QTc: 389 Interpretive Statements Sinus rhythm Normal ECG Electronically Signed On 03-14-2021 8:19:53 EDT by Anand PALACIOS Work Phone: XR CHEST PORTABLEOrdered By: Merlene Castro on 03-14-2021 Patient Name: KENN BEAR Sr Diagnostic Radiology ACCESSION EXAM DATE/TIME PROCEDURE ORDERING PROVIDER [id number] 03/14/2021 05:56 EDT CR Chest Portable [id number] MOORE CPT code 79123 Reason For Exam (CR Chest Portable) s/p [...] Phone: Ronnie, [facility] Incoming Radiology Results From [facility] - 03/14/2021 7:58 AM EDT Patient Name: KENN ARSHAD Sr Diagnostic Radiology ACCESSION EXAM DATE/TIME PROCEDURE ORDERING PROVIDER [id number] 03/14/2021 05:56 EDT CR Chest Portable [id number] TianaMERLENE CASTRO CPT code 23431 Reason For Exam (CR Chest Portable) s/p [...] J Transcribed Date and Time: 03/14/2021 7:55 [facility] Work Phone: [phone] CBCOrdered By: Merlene Castro on 03-13-2021 Hematocrit (Bld) [Volume fraction] 42.6 % 40.0 - 52.0 % [facility] Work Phone: [phone] Hemoglobin.gastrointes tinal spec 1 Ql (Stl) 14.2 g/dL 13.0 - 18.0 g/dL [facility] Work Phone: [phone] Interpretation and review of laboratory results Abnormal [facility] Work Phone: [phone] MCH (RBC) [Entitic mass] 27.7 pg 26.0 - 34.0 pg [facility] Work Phone: [phone] MCHC (RBC) [Mass/Vol] 33.4 % 32.0 - 36.0 % [facility] Work Phone: [phone] MCV (RBC) [Entitic vol] 82.8 fL 80.0 - 98.0 fL [facility] Work Phone: [phone] Platelet distribution width (Bld) [Ratio] 15.1 % High 11.5 - 14.5 % [facility] Work Phone: [phone] Platelet mean volume (Bld) [Entitic vol] 8.6 fL 7.4 - 10.4 fL [facility] Work Phone: [phone] Platelets (Bld) [#/Vol] 161 10*3/uL 140 - 440 10*3/uL [facility] Work Phone: RBC (Bld) [#/Vol] 5.14 10*6/uL 4.40 - 5.9 0 10*6/uL [facility] Work Phone: WBC (Bld) [#/Vol] 10.2 10*3/uL 3.6 - 10.7 10*3/uL [facility] Work Phone: Test Performed by [facility], [address] [place] [address] [facility] Work Phone: CR Chest Portableon 03-13-20 21 CR Chest Portable Patient Name: KENN VAUGHN Sr Diagnostic Radiology ACCESSION EXAM DATE/TIME PROCEDURE ORDERING PROVIDER [id number] 03/13/2021 06:09 EDT CR Chest Portable [id number] -MERLENE CASTRO CPT code 98173 Reason For Exam (CR Chest Portable) s/p [...] Transcribed Date and Time: 03/13/2021 8:57 Normal [facility] Hemogramon 03-13-2021 Erythrocyte distribution width (RBC) [Ratio] 15.1 % High 11.5-14.5 [facility] Comment on above: Performed By: #### H CHARLOTTE IVAN #### [facility] [address] [address] Hematocrit (Bld) [Volume fraction] 42.6 % Normal 40.0-52.0 [facility] Comment on above: Performed By: #### H EMOG, TROPN #### [facility] [address] [place] [address] Hemoglobin (Bld) [Mass/Vol] 14.2 g/dL Normal 13.0-18.0 [facility] Comment on above: Performed By: #### H EMOSherie, TROPN #### [facility] [address] [place] [address] MCH (RBC) [Entitic mass] 27.7 pg Normal 26.0-34.0 [facility] Comment on above: Performed By: #### H EMOG, TROPN #### [facility] [address] [place] [address] MCHC 33.4 % Normal 32.0-36.0 [facility] Comment on above: Performed By: #### H EMOSherie, TROPN #### [facility] [address], [place] MCV (RBC) [Entitic vol] 82.8 fL Normal 80.0-98.0 [facility] Comment on above: Performed By: #### H EMOSherie, TROPN #### [facility] [address], [place] Platelet mean volume (Bld) [Entitic vol] 8.6 fL Normal 7.4-10.4 [facility] Comment on above: Performed By: #### H EMOG, TROPN #### [facility] [address] [place] [address] Platelets (Bld) [#/Vol] 161 10*3/uL Normal 140-440 [facility] Comment on above: Performed By: #### H EMOG, TROPN #### [facility] [address] [place] [address] RBC (Bld) [#/Vol] 5.14 10*6/uL Normal 4.40-5.90 [facility] Comment on above: Performed By: #### H EMOG, TROPN #### [facility] [address] [place] [address] WBC (Bld) [#/Vol] 10.2 10*3/uL Normal 3.6-10.7 [facility] Comment on above: Performed By: #### H CHARLOTTE IVAN #### [address] [address] XR CHEST PORTABLEOrdered By: Merlene Castro on 03-13-2021 Patient Name: KENN VAUGHN Sr Diagnostic Radiology ACCESSION EXAM DATE/TIME PROCEDURE ORDERING PROVIDER [id number] 03/13/2021 06:09 EDT CR Chest Portable [id number] MERLENE AGUILA CPT code 13609 Reason For Exam (CR Chest Portable) s/p [...] RISA Transcribed Date and Time: 03/13/2021 8:57 [facility] Work Phone: [facility], [facility] Incoming Radiology Results From [facility] - 03/13/2021 8:59 AM EDT Patient Name: KENN ARSHAD Sr Diagnostic Radiology ACCESSION EXAM DATE/TIME PROCEDURE ORDERING PROVIDER [id number] 03/13/2021 06:09 EDT CR Chest Portable [id number] MERLENE AGUILA CPT code 62026 Reason For Exam (CR Chest Portable) s/p [...] RISA Transcribed Date and Time: 03/13/2021 8:57 [facility] Work Phone: [phone] CBCOrdered By: Anaid lam 03-12-2021 Hematocrit (Bld) [Volume fraction] 40.9 % 40.0 - 52.0 % [facility] Work Phone: [phone] Hemoglobin.gastrointes tinal spec 1 Ql (Stl) 14.0 g/dL 13.0 - 18.0 g/dL [facility] Work Phone: [phone] Interpretation and review of laboratory results Abnormal [facility] Work Phone: 1 MCH (RBC) [Entitic mass] 28.2 pg 26.0 - 34.0 pg [facility] Work Phone: 1 MCHC (RBC) [Mass/Vol] 34.2 % 32.0 - 36.0 % [facility] Work Phone: 1 MCV (RBC) [Entitic vol] 82.3 fL 80.0 - 98.0 fL [facility] Work Phone: 1 Platelet distribution width (Bld) [Ratio] 15.2 % High 11.5 - 14.5 % [facility] Work Phone: 1 Platelet mean volume (Bld) [Entitic vol] 8.3 fL 7.4 - 10.4 fL [facility] Work Phone: [phone] Platelets (Bld) [#/Vol] 154 10*3/uL 140 - 440 10*3/uL [facility] Work Phone: [phone] RBC (Bld) [#/Vol] 4.97 10*6/uL 4.40 - 5.9 0 10*6/uL [facility] Work Phone: WBC (Bld) [#/Vol] 6.4 10*3/uL 3.6 - 10.7 10*3/uL [facility] Work Phone: Test Performed by [facility], [address] [place] [address] [facility] Work Phone: CR Chest Portableon 03-12-20 21 CR Chest Portable Patient Name: KENN VAUGHN Sr Diagnostic Radiology ACCESSION EXAM DATE/TIME PROCEDURE ORDERING PROVIDER [id number] 03/12/2021 20:12 EDT CR Chest Portable [id number] MOORE CPT code 95607 Reason For Exam (CR Chest Portable) s/p [...] Transcribed Date and Time: 03/12/2021 9:02 Normal [facility] CR Chest Portable Patient Name: KENN VAUGHN Sr Diagnostic Radiology ACCESSION EXAM DATE/TIME PROCEDURE ORDERING PROVIDER [id number] 03/12/2021 12:02 EDT CR Chest Portable ARASH DON ANDREW G CPT code 34294 Reason For Exam (CR Chest Portable) preoperative [...] Transcribed Date and Time: 03/12/2021 3:06 Normal [facility] Comp Metabolic Panelon 03-12 Calcium [Mass/Vol] 9.4 mg/dL Normal 8.4-10.4 [facility] Comment on above: Performed By: #### T ROPN, MG3, HA1C2, HEMOG, CMP3M, LIPD2 #### [facility] [address] [place] [address] ALP [Catalytic activity/Vol] 56 U/L Normal 38-126 [facility] Comment on above: Performed By: #### T ROPN, MG3, HA1C2, HEMOG, CMP3M, LIPD2 #### [facility] [address] [place] [address] eGFR OTHER > 90.0 Normal >60 [facility] Comment on above: Result Comment: KDIG O [...] ROPN, MG3, HA1C2, HEMOG, CMP3M, LIPD2 #### [place] [address] [place] [address] Protein [Mass/Vol] 7.0 g/dL Normal 6.3-8.2 [facility] Comment on above: Performed By: #### T ROPN, MG3, HA1C2, HEMOG, CMP3M, LIPD2 #### [place] [address] [address], [place] Urea nitrogen [Mass/Vol] 18 mg/dL Normal 7-20 [facility] Comment on above: Performed By: #### T ROPN, MG3, HA1C2, HEMOG, CMP3M, LIPD2 #### [place] [address] [address], [place] Potassium [Moles/Vol] 4.1 mmol/L Normal 3.5-5.1 [facility] Comment on above: Performed By: #### T ROPN, MG3, HA1C2, HEMOG, CMP3M, LIPD2 #### [place] [address] [address], [place] Albumin [Mass/Vol] 4.2 g/dL Normal 3.5-5.0 [facility] Comment on above: Performed By: #### T ROPN, MG3, HA1C2, HEMOG, CMP3M, LIPD2 #### [place] [address], [place] Chloride [Moles/Vol] 107 mmol/L Normal 98-107 [facility] Comment on above: Performed By: #### T ROPN, MG3, HA1C2, HEMOG, CMP3M, LIPD2 #### [place] [address] [address], [place] Sodium [Moles/Vol] 138 mmol/L Normal 135-145 [facility] Comment on above: Performed By: #### T ROPN, MG3, HA1C2, HEMOG, CMP3M, LIPD2 #### [facility] [address], [place] Comp Metabolic PanelOrdered By: Anaid Zee [...] ROPN, MG3, HA1C2, HEMOG, CMP3M, LIPD2 #### [facility] [place] [address] [address], [place] Anion gap [Moles/Vol] 6 mmol/L Normal 3-13 [facility] Work Phone: Comment on above: Performed By: #### T ROPN, MG3, HA1C2, HEMOG, CMP3M, LIPD2 #### [employer] [place] [address] [address], [place] AST [Catalytic activity/Vol] 26 U/L Normal 15-46 [facility] Work Phone: Comment on above: Performed By: #### T ROPN, MG3, HA1C2, HEMOG, CMP3M, LIPD2 #### [facility] [place] [address] [address], [place] Bilirubin [Mass/Vol] 0.5 mg/dL Normal 0.2-1.3 [facility] Work Phone: Comment on above: Performed By: #### T ROPN, MG3, HA1C2, HEMOG, CMP3M, LIPD2 #### [facility] [place] [address] [address], [place] CO2 [Moles/Vol] 24 mmol/L Normal 22-30 [facility] Work Phone: Comment on above: Performed By: #### T ROPN, MG3, HA1C2, HEMOG, CMP3M, LIPD2 #### [facility] [address] Creatinine [Mass/Vol] 0.78 mg/dL Normal 0.52-1.25 [facility] Work Phone: [phone] Comment on above: Performed By: #### T ROPN, MG3, HA1C2, HEMOG, CMP3M, LIPD2 #### [facility] [address], [place] GFR/1.73 sq M.predicted among blacks MDRD (S/P/Bld) [Vol rate/Area] mL/min/{1.73_m2} Normal >60 [facility] Work Phone: [phone] Comment on above: Performed By: #### T ROPN, MG3, HA1C2, HEMOG, CMP3M, LIPD2 #### [employer] [facility] [place], [place] Glucose [Mass/Vol] 101 mg/dL High 70-100 [facility] Work Phone: [phone] Comment on above: Performed By: #### T ROPN, MG3, HA1C2, HEMOG, CMP3M, LIPD2 #### [facility] [place], [place] Comprehensive Metabolic Pane lOrdered By: Anaid Zee on 03-12-2021 Albumin [Mass/Vol] 4.2 g/dL 3.5 - 5.0 g/dL [facility] Work Phone: [phone] ALP (Bld) [Catalytic activity/Vol] 56 U/L 38 - 126 U/L [facility] Work Phone: [phone] [Mass/Vol] 9.4 mg/dL 8.4 - 10. 4 mg/dL [facility] Work Phone: [phone] [Moles/Vol] 107 mmol/L 98 - 10 7 mmol/L [facility] Work Phone: [phone] IF NonAfrican Trinidadian >90.0 >60 mL/min [facility] Work Phone: [phone] Comment on above: KDIGO guidelines pro vide [...] fraction] 7.0 g/dL 6.3 - 8.2 g/dL [facility] Work Phone: Interpretation and review of laboratory results Abnormal [facility] Work Phone: Potassium [Moles/Vol] 4.1 mmol/L 3.5 - 5.1 mmol/L [facility] Work Phone: Sodium [Moles/Vol] 138 mmol/L 135 - 145 mmol/L [facility] Work Phone: Urea nitrogen (BldV) [Mass/Vol] 18 mg/dL 7 - 20 mg/dL [facility] Work Phone: Test Performed by [facility], [address] [place] [address] [facility] Work Phone: Hemogramon 03-12-2021 Erythrocyte distribution width (RBC) [Ratio] 15.2 % High 11.5-14.5 [facility] Comment on above: Performed By: #### T ROPN, MG3, HA1C2, HEMOG, CMP3M, LIPD2 #### [facility] [employer] [address] [place] [phone] Hematocrit (Bld) [Volume fraction] 40.9 % Normal 40.0-52.0 [facility] Comment on above: Performed By: #### T ROPN, MG3, HA1C2, HEMOG, CMP3M, LIPD2 #### [facility] [address], [place] Hemoglobin (Bld) [Mass/Vol] 14.0 g/dL Normal 13.0-18.0 [facility] Comment on above: Performed By: #### T ROPN, MG3, HA1C2, HEMOG, CMP3M, LIPD2 #### [place] [address] [address], [place] MCH (RBC) [Entitic mass] 28.2 pg Normal 26.0-34.0 [facility] Comment on above: Performed By: #### T ROPN, MG3, HA1C2, HEMOG, CMP3M, LIPD2 #### [place] [address] [address] MCHC 34.2 % Normal 32.0-36.0 [facility] Comment on above: Performed By: #### T ROPN, MG3, HA1C2, HEMOG, CMP3M, LIPD2 #### [place] [address] MCV (RBC) [Entitic vol] 82.3 fL Normal 80.0-98.0 [facility] Comment on above: Performed By: #### T ROPN, MG3, HA1C2, HEMOG, CMP3M, LIPD2 #### [place] [address] [address], [place] Platelet mean volume (Bld) [Entitic vol] 8.3 fL Normal 7.4-10.4 [facility] Comment on above: Performed By: #### T ROPN, MG3, HA1C2, HEMOG, CMP3M, LIPD2 #### [place] [address] [address], [place] Platelets (Bld) [#/Vol] 154 10*3/uL Normal 140-440 [facility] Comment on above: Performed By: #### T ROPN, MG3, HA1C2, HEMOG, CMP3M, LIPD2 #### [place] [address] [address], [place] RBC (Bld) [#/Vol] 4.97 10*6/uL Normal 4.40-5.90 [facility] Comment on above: Performed By: #### T ROPN, MG3, HA1C2, HEMOG, CMP3M, LIPD2 #### [facility] [address] [place] [address] WBC (Bld) [#/Vol] 6.4 10*3/uL Normal 3.6-10.7 [facility] Comment on above: Performed By: #### T ROPN, MG3, HA1C2, HEMOG, CMP3M, LIPD2 #### [facility] [address] [place] [address] Op Noteon 03-12-2021 Op Note PATIENT: Charli [...] adenocarcinoma. 2. Right hilar lymphadenopathy. Anesthesia: General. Nurse Auditor: Johanna Pyle. Estimated Blood Loss: 100 cc. [...] the PACU for recovery. [employer] Job ID: [id number] Anaid Zee MD DOD:03/12/2021 04:52 P NNA/hectork DOT:03/12/2021 06:28 P Job Number: [id number] Document Number: [id number] cc: Anaid Zee MD [facility] [address] [place] [address] Surgical Pathologyon 021 Surgical Pathology [id number] [facility] PATHOLOGY AND LABORATORY MEDICINE [address] [place] [address] FINAL SURGICAL PATHOLOGY REPORT NAME: KENN ARSHAD N [id number] : 1955 65 Y M [facility] NO.: [id number] LOCATION: [address] [place] [address] PROCEDURE 03/12/2021 DATE: SURGEON: ANAID ZEE [...] the lymph nodes show prominent sinus histiocytosis. 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 Zee on 03/19/21. CRH/CRH Signature> VAISHALI FRY M.D. CL[facility] (more content not included)... Normal [facility] TS GELon 03-12-2021 TS GEL ABO Group: A Rh, Gel: POS Antibody Screen Gel: NEG Normal [facility] Comment on above: Performed By: #### T ROPN, MG3, HA1C2, HEMOG, CMP3M, LIPD2 #### [facility] [address] [place] [address] TYPE AND SCREENOrdered By: Arnol Zee on 03-12-2021 ABO Grouping A [facility] Work Phone: Rh Type Positive [facility] Work Phone: Test Performed by [facility], [address] [place] [address] [facility] Work Phone: XR CHEST PORTABLEOrdered By: Merlene Castro on 03-12-2021 Patient Name: KENN VAUGHN Sr Diagnostic Radiology ACCESSION EXAM DATE/TIME PROCEDURE ORDERING PROVIDER [id number] 03/12/2021 20:12 EDT CR Chest Portable [id number] -MERLENE CASTRO CPT code 98706 Reason For Exam (CR Chest Portable) s/p [...] ALFRED Transcribed Date and Time: 03/12/2021 9:02 [facility] Work Phone: Ronnie, [facility] Incoming Radiology Results From [facility] - 03/12/2021 9:05 PM EDT Patient Name: KENN ARSHAD Sr Diagnostic Radiology ACCESSION EXAM DATE/TIME PROCEDURE ORDERING PROVIDER [id number] 03/12/2021 20:12 EDT CR Chest Portable [id number] -MERLENE CASTRO CPT code 17251 Reason For Exam (CR Chest Portable) s/p [...] on 03-12-2021 Patient [facility]: [id number] Radiology ACCESSION EXAM DATE/TIME PROCEDURE ORDERING PROVIDER [id number] 03/12/2021 12:02 EDT CR Chest Portable ARASH DON ANDREW G CPT code 23408 Reason For Exam (CR Chest Portable) preoperative [...] Phone: Ronnie, [facility] Incoming Radiology Results From [facility] - 03/12/2021 3:16 PM EDT Patient Name: KENN ARSHAD Sr Diagnostic Radiology ACCESSION EXAM DATE/TIME PROCEDURE ORDERING PROVIDER [id number] 03/12/2021 12:02 EDT CR Chest Portable ARASH DON, MEGHA Carter CPT code 18199 Reason For Exam (CR Chest Portable) preoperative [...] Imaging ACCESSION EXAM DATE/TIME PROCEDURE ORDERING PROVIDER [id number] 03/08/2021 13:11 EDT MRI Brain w/ + w/o MD KRISTIN, JOSE MIGUEL Contrast CPT code 13294 Reason For Exam (MRI Brain w/ + [...] the globes and orbital contents. There is gddo-hq-hqdobngn paranasal sinusitis with several fluid-filled ethmoid air [...] Transcribed Date and Time: 03/08/2021 3:28 Normal [facility] CR Chest Portableon 02-21-20 CR Chest Portable Patient Name: KENN VAUGHN Sr [facility]#: [id number] Diagnostic Radiology ACCESSION EXAM DATE/TIME PROCEDURE ORDERING PROVIDER [id number] 02/20/2021 13:44 EDT CR Chest Portable MD KRISITN, JOSE MIGUEL CPT code 96550 Reason For Exam (CR Chest Portable) post [...] Dictated: 02/20/2021 2:10 pm Dictating Physician: MD AMY JONATHAN R Signed Date and Time: 02/20/2021 2:14 pm Signed by: MD MAY JONATHAN R Transcribed Date and Time: 02/20/2021 2:10 Normal [facility] Medical Cytologyon 1 Medical Cytology [facility] [id number] DEPARTMENT OF PATHOLOGY AND [facility], [facility]. LABORATORY MEDICINE [address] [place] [address] FINAL MEDICAL CYTOLOGY REPORT NAME: KENN ARSHAD : 1955 65 Y M BILLING NO.: [id number] LOCATION: [facility] PAC OUT 1PAC PROCEDURE 02/20/2021 04 [...] changes. Please see patient's concurrent transbronchial biopsy ([id number]) for additional information. Comment: ADDITIONAL SURGICAL CASES [...] TRANSBRONCHIAL NEEDLE ASPIRATION GROSS DESCRIPTION: 15 ml, Bantam fluid, w/cytolyt. Materials Prepared & Examined: Cell Blocks . . . . . . . . . . . . 1 Smear Slides . . . . . . . . . . . 2 SPECIMEN: FINE NEEDLE ASPIRATION-TRANSBRONCHIAL , STATION 7 (PART C) PROCEDURE(S): TRANSBRONCHIAL NEEDLE ASPIRATION GROSS DESCRIPTION: 15 ml, Bantam fluid, w/cytolyt. Materials Prepared & Examined: Cell [...] TRANSBRONCHIAL NEEDLE ASPIRATION GROSS DESCRIPTION: 15 ml, Bantam fluid, w/cytolyt. Materials Prepared & Examined: Cell [...] characteristics determined by the clinical laboratories of [facility]. They have not been cleared by the [...] specimens. Case (more content not included)... Normal [facility] RF Fluoroscopy Unlisted Proc radha 02-20-2021 RF Fluoroscopy Unlisted Procedure Patient Name: KENN ARSHAD Sr Fluoroscopy ACCESSION EXAM DATE/TIME PROCEDURE ORDERING PROVIDER [id number] 02/20/2021 12:36 EDT RF Fluoroscopy Unlisted MD KRISTIN, RAMI Procedure CPT code 14975 Reason For Exam (RF Fluoroscopy Unlisted Procedure) Mass of right lung Report A total of ??4.21??minutes of fluoro time was used in the Operating Suite for this procedure. ?? No other report will be generated. Final Signed Date and Time: 03/05/2021 12:16 pm Signed by: PACK WORKER, SYSTEM Transcribed Date and Time: 03/05/2021 11:44 Transcribed By:ALEXA [facility] Surgical Pathologyon 021 Surgical Pathology [id number] [facility] PATHOLOGY AND LABORATORY MEDICINE [address] [place] [id number] FINAL SURGICAL PATHOLOGY REPORT NAME: KENN ARSHAD Linda : 1955 65 Y M [facility] NO.: [id number] [address]EDURE 02/20/2021 DATE: SURGEON: JOSE [...] Please also see patient's concurrent cytology specimen ([id number]) for additional information. CRH/CRH Signature> VAISHALI FRY [...] characteristics determined by the clinical laboratories of [facility]. They have not been cleared by the [...] negativity on decalcified specimens. Professional Performing Location: [address] [address]. DEPARTMENT OF PATHOLOGY AND LABORATORY MEDICINE [place], [place] [address] [email or web address] Normal [facility] XR CHEST PORTABLEon 02-21-20 Patient Name: KENN VAUGHN Sr Diagnostic Radiology ACCESSION EXAM DATE/TIME PROCEDURE ORDERING PROVIDER [id number] 02/20/2021 13:44 EDT CR Chest Portable MD FOSTER RAMI CPT code 78460 Reason For Exam (CR Chest Portable) post [...] Time: 02/20/2021 2:10 [facility] Work Phone: [facility] Results From [facility] - 02/20/2021 2:15 PM EDT Patient Name: KENN ARSHAD Sr Diagnostic Radiology ACCESSION EXAM DATE/TIME PROCEDURE ORDERING PROVIDER [id number] 02/20/2021 13:44 EDT CR Chest Portable MD FOSTER RAMI CPT code 81940 Reason For Exam (CR Chest Portable) post [...] Work Phone: PET CT SKULL BASE TO [facility] 02-14-2021 Patient Name: KENN VAUGHN Sr [facility]#: [id number] PET ACCESSION EXAM DATE/TIME PROCEDURE ORDERING PROVIDER [id number] 02/14/2021 08:55 EDT PT w/ CT Scan Skull Base MD KRISTIN, RAM to [facility] CPT code 33593 A9552 Reason For Exam (PT w/ CT Scan Skull Base to [facility]) Pulmonary nodule evaluation; None of the [...] Phone: [facility], [facility] Incoming Radiology Results From [facility] - 02/14/2021 4:23 PM EDT [facility]: [id number] ACCESSION EXAM DATE/TIME PROCEDURE ORDERING PROVIDER [id number] 02/14/2021 08:55 EDT PT w/ CT Scan Skull Base MD KRISTIN, RAMI to [facility] CPT code 92633 A9552 Reason For Exam (PT w/ CT [...] to Midthigh Patient Name: [id number] PET ACCESSION EXAM DATE/TIME PROCEDURE ORDERING PROVIDER [id number] 02/14/2021 08:55 EDT PT w/ CT Scan Skull Base MD KRISTIN, RAMI to [facility]idth[facility] CPT code 37916 A9552 Reason For Exam (PT w/ CT [...] Transcribed Date and Time: 02/14/2021 4:[address] [facility] [address] Low Dose Lung Screeningon 01-28-2021 CT Low Dose Lung Screening Patient Name: [facility]AD [facility] [id number] Computed Tomography ACCESSION EXAM DATE/TIME PROCEDURE ORDERING PROVIDER [id number] 01/28/2021 08:[address] Low Dose Lung [...] Transcribed Date and Time: 01/28/2021 9:[address] [facility] [address] lung screen [Initial/Deja al]on 01-28-2021 Patient [facility] [id number] Computed Tomography ACCESSION EXAM DATE/TIME PROCEDURE ORDERING PROVIDER [id number] 01/28/2021 08:[address] Low Dose Lung [...] AM EDT Patient Name: [facility]AD [facility] [id number] Computed Tomography ACCESSION EXAM DATE/TIME PROCEDURE ORDERING PROVIDER [id number] 01/28/2021 08:[address] Low Dose Lung [...] R Transcribed Date and Time: 01/28/2021 9:17 [facility] Work Phone: VL ARTERIAL PVR LOWER WO EXE RCISEon 01-25-2021 [facility] Multilevel Lower Extremity Arterial Evaluation Report Patient Jeancarlos, : 1955 Study 01/25/2021 Name: Kenn Nava (65yrs) Date: Patient [id number] Age: 65 Account: [id number] ID: Gender: M Loc: BP: Ordering Physician: Jacob Jennings Director Of Casework Department: Sudeep Ann RVT Interpreting Physician: Stanton Eugene MD Location: [facility] Indications: PAD. Conclusions 1. Right resting RAZA [...] supine position. Images were obtained using a [employer] 2100 vascular ultrasound machine. Arterial pressure indices: [...] signed by Stanton Eugene MD 01/25/2021 15:11 [employer] Work Phone: Ronnie, [facility] Incoming Cardiology Results From [place]/[facility] - 01/25/2021 3:11 PM EDT [facility] Multilevel Lower Extremity Arterial Evaluation Report Patient NIKO Arshad: 1955 Study 01/25/2021 Name: Kenn Nava (65yrs) Date: Patient [id number] Age: 65 Account: [id number] ID: Gender: M Loc: BP: Ordering Physician: Jacob Jennings Director Of Casework Department: Sudeep Ann T Interpreting Physician: Stanton Eugene MD Location: [facility] Indications: PAD. Conclusions 1. Right resting RAZA [...] supine position. Images were obtained using a [employer] 2100 vascular ultrasound machine. Arterial pressure indices: [...] signed by Stanton Eugene MD 01/25/2021 15:11 [facility] Work Phone: VL PVR Arterial Doppler Lwr w/o Exerciseon 01-25-2021 VL PVR Arterial Doppler Lwr w/o Exercise Patient Name: KENN ARSHAD Sr Ultrasound ACCESSION EXAM DATE/TIME PROCEDURE ORDERING PROVIDER [id number] 01/25/2021 14:07 EDT VL PVR Arterial Doppler DO JENNINGS EUGENE F. Lwr w/o Exercise CPT code 95274 Reason For Exam (VL PVR Arterial Doppler Lwr w/o Exercise) PAD Report [facility] Multilevel Lower Extremity Arterial Evaluation Report Patient DO JeancarlosB: 1955 Study 01/25/2021 Name: Kenn Nava (65yrs) Date: Patient [id number] Age: 65 Account: [id number] ID: Gender: M Loc: BP: Ordering Physician: Jacob Jennings Director Of Casework Department: Sudeep Ann RVT Interpreting Physician: Stanton Eugene MD Location: [facility] Indications: PAD. Conclusions 1. Right resting RAZA [...] supine position. Images were obtained using a [employer] 2100 vascular ultrasound machine. Arterial pressure indices: [...] STANTON EUGENE Cardiovascular ACCESSION EXAM DATE/TIME PROCEDURE [id number] 01/25/2021 14:07 EDT VL PVR Arterial Doppler Lwr w/o Exercise CPT code 49967 Cardiovascular Reason For Exam (VL PVR Arterial Doppler Lwr w/o Exercise) PAD Report [facility] Multilevel Lower Extremity Arterial Evaluation Report Patient Jeancarlos, : 1955 Study 01/25/2021 Name: Kenn Nava (65yrs) Date: Patient [id number] Age: 65 Account: [id number] ID: Gender: M Loc: BP: Ordering Physician: Jacob Jennings Director Of Casework Department: Sudeep Ann RVT Interpreting Physician: Stanton Eugene MD Location: [facility] Indications: PAD. Conclusions 1. Right resting RAZA is 0.59 and TBI is 0.42. These findings show severe arterial insufficiency. 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 PVR waveforms appear diminish (more content not included)... Normal [facility] VL DUP CAROTID BILATERALon 0 07-13-2020 Patient Name: KENN VAUGHN Sr ---Ultrasound--- Exam Date/Time 07/13/2020 12:33:10 EDT Exam VL Carotid Duplex Ultrasound Complete Ordering Physician DO JENNINGS EUGENE F. Accession Number [id number] CPT4 Codes 75466 () Reason For Exam R09.89 Report BILATERAL [...] JEFFREY Transcribed Date and Time: 07/13/2020 8:29 [facility] [place] Ronnie, [facility] Incoming Cardiology [facility] [place] 07/13/2020 8:29 PM EDT Patient Name: KENN ARSHAD Sr ---Ultrasound--- Exam Date/Time 07/13/2020 12:33:10 EDT Exam VL Carotid Duplex Ultrasound Complete Ordering Physician DO JENNINGS EUGENE F. Accession Number [id number] CPT4 Codes 64626 () Reason For Exam R09.89 Report BILATERAL [...] JEFFREY Transcribed Date and Time: 07/13/2020 8:29 [facility], [place] VL Arterial PVR Lower w Exer ciseon 07-15-2019 [facility] --- Multilevel Lower Extremity Arterial Evaluation with Exercise Patient Name: Kenn Arshad : 1955 Study Date: 07/15/2019 D (63yrs) Age: 63 Account: [id number] Gender: M Loc: BP: Ordering: Jacob Jennings Technologist: Ordering Physician: Jacob Jennings Director Of Casework Department: Lolly Sandra Interpreting Physician: Khalif Lara --- Location: [facility] --- INDICATIONS: Claudication of the right leg [...] performed. The images were obtained using a One Month 2100 vascular ultrasound machine. An exercise arterial [...] 0.76 0.50 Electronically signed by: Khalif Lara [id number] [facility] [place], [place] Ronnie, [facility] Incoming Cardiology Results From [place]/Patricia - 07/15/2019 9:35 PM EDT [facility] --- Multilevel Lower Extremity Arterial Evaluation with Exercise Patient Name: Kenn Arshad : 1955 Study Date: 07/15/2019 D (63yrs) Age: 63 Account: [id number] Gender: M Loc: BP: Ordering: Jacob Jennings Technologist: Ordering Physician: Jacob Jennings Director Of Casework Department: Lolly Sandra Interpreting Physician: Khalif Lara --- Location: [facility] --- INDICATIONS: Claudication of the right leg [...] performed. The images were obtained using a [employer] 2100 vascular ultrasound machine. An exercise [...] 0.76 0.50 Electronically signed by: Khalif Lara [id number] [place], [place] Gram stain for investigation of transfusion reaction Microscopic observation Gram stain Nom (Unsp spec) [facility] Work Phone: Influenza virus A and B and SARS-CoV-2 (COVID-19) Ag panel - Upper respiratory specim SARS-CoV-2 (COVID-19) RNA DAVID+probe Ql (Resp) [facility] Work Phone: Laboratory - Microbiology an d Antimicrobial susceptibility Respiratory pathogens DNA and RNA 12b panel DAVID+probe (Unsp spec) [facility] Work Phone: No Panel Information Streptococcus pneumoniae Antigen (M [facility] Work Phone: Stool gastrointestinal hemog lobin detection by immunologic method Lower GI hemoglobin IA Ql (Stl) [facility] Work Phone: Urine Legionella pneumophila antigen detection L. pneumophila Ag Ql (U) [facility] Work Phone: Vital Signs Date Time Vital Sign Value Performing Clinician Facility 09-14-2025 11:41-0500 Diastolic blood pressure 64 mm[Hg] Schedule [facility] 09-14-2025 11:41-0500 Heart rate 78 /min Schedule [facility] 09-14-2025 11:41-0500 SaO2% (BldA) [Mass fraction] 90 % Schedule [facility] 09-14-2025 11:41-0500 Systolic blood pressure 147 mm[Hg] Schedule [facility] 09-07-2025 15:07-0400 Diastolic blood pressure 64 mm[Hg] Eleuterio Hatch MD Work Phone: [facility] 09-07-2025 15:07-0400 Heart rate 77 /min Eleuterio Hatch MD Work Phone: [facility] 09-07-2025 15:07-0400 Systolic blood pressure 146 mm[Hg] Eleuterio Hatch MD Work Phone: [facility] 09-07-2025 14:33-0400 Body height 167.6 cm Eleuterio Hatch MD Work Phone: [facility] 09-07-2025 14:33-0400 Body mass index (BMI) [Ratio] 30.09 kg/m2 Eleuterio Hatch MD Work Phone: [facility] 09-07-2025 14:33-0400 Body weight 84.55 kg Eleuterio Hatch MD Work Phone: [facility] 09-07-2025 14:33-0400 SaO2% (BldA) [Mass fraction] 92 % Eleuterio Hatch MD Work Phone: [facility] 08-24-2025 14:50-0400 Diastolic blood pressure 70 mm[Hg] Dr. Jacob Jennings DO Work Phone: [facility] 08-24-2025 14:50-0400 Heart rate 85 /min Dr. Jacob Jennings DO Work Phone: [facility] 08-24-2025 14:50-0400 Respiratory rate 18 /min Dr. Jacob Jennings DO Work Phone: [facility] 08-24-2025 14:50-0400 SaO2% (BldA) [Mass fraction] 92 % Dr. Jacob Jennings DO Work Phone: [facility] 08-24-2025 14:50-0400 Systolic blood pressure 143 mm[Hg] Dr. Jacob Jennings DO Work Phone: [facility] 08-22-2025 10:16-0400 Body temperature 98.4 [degF] Dr. Jacob Jennings DO Work Phone: [facility] 08-22-2025 10:16-0400 Diastolic blood pressure 60 mm[Hg] Dr. Jacob Jennings DO Work Phone: [facility] 08-22-2025 10:16-0400 Heart rate 84 /min Dr. Jacob Jennings DO Work Phone: [facility] 08-22-2025 10:16-0400 Respiratory rate 18 /min Dr. Jacob Jennings DO Work Phone: [facility] 08-22-2025 10:16-0400 SaO2% (BldA) [Mass fraction] 98 % Dr. Jacob Jennings DO Work Phone: [facility] 08-22-2025 10:16-0400 Systolic blood pressure 140 mm[Hg] Dr. Jacob Jennings DO Work Phone: [facility] 08-20-2025 08:44-0400 Body height 165.[address] Jacbo Jennings DO Work Phone: [facility] 08-20-2025 08:44-0400 Body weight 81.[address] Jacob Jennings DO Work Phone: [facility] 08-19-2025 19:33-0400 Body mass index (BMI) [Ratio] 29.9 kg/m2 Dr. Jacob Jennings DO Work Phone: [facility] 08-19-2025 18:01-0400 Diastolic blood pressure 57 mm[Hg] Tono Birch MD Work Phone: [facility] 08-19-2025 18:01-0400 Heart rate 82 /min Tono Birch MD Work Phone: [facility] 08-19-2025 18:01-0400 Respiratory rate 16 /min Tono Birch MD Work Phone: [facility] 08-19-2025 18:01-0400 SaO2% (BldA) [Mass fraction] 96 % Tono Birch MD Work Phone: [facility] 08-19-2025 18:01-0400 Systolic blood pressure 142 mm[Hg] Tono Birch MD Work Phone: [facility] 08-19-2025 15:37-0400 Body temperature 98.6 [degF] Tono Birch MD Work Phone: [facility] 08-19-2025 15:36-0400 Body height 167.6 cm Tono Birch MD Work Phone: [facility] 08-19-2025 15:36-0400 Body mass index (BMI) [Ratio] 25.82 kg/m2 Tono Birch MD Work Phone: [facility] 08-19-2025 15:36-0400 Body weight 72.58 kg Tnoo Birch MD Work Phone: [facility] 08-16-2025 11:26-0400 Body height 165.[address] Jacob Jennings DO Work Phone: [facility] 08-16-2025 11:26-0400 Body mass index (BMI) [Ratio] 30.3 kg/m2 Dr. Jacob Jennings DO Work Phone: [facility] 08-16-2025 11:26-0400 Body temperature 98.1 [degF] Dr. Jacob Jennings DO Work Phone: [facility] 08-16-2025 11:26-0400 Body weight 82.[address] Jacob Jennings DO Work Phone: [facility] 08-16-2025 11:26-0400 Diastolic blood pressure 72 mm[Hg] Dr. Jacob Jennings DO Work Phone: [facility] 08-16-2025 11:26-0400 Heart rate 75 /min Dr. Jacob Jennings DO Work Phone: [facility] 08-16-2025 11:26-0400 Respiratory rate 18 /min Dr. Jacob Jennings DO Work Phone: [facility] 08-16-2025 11:26-0400 SaO2% (BldA) [Mass fraction] 91 % Dr. Jacob Jennings DO Work Phone: [facility] 08-16-2025 11:26-0400 Systolic blood pressure 150 mm[Hg] Dr. Jacob Jennings DO Work Phone: [facility] 08-04-2025 11:48-0400 Body height 165.[address] Jacob Jennings DO Work Phone: [facility] 08-04-2025 11:48-0400 Body mass index (BMI) [Ratio] 30.7 kg/m2 Dr. Jacob Jennings DO Work Phone: [facility] 08-04-2025 11:48-0400 Body temperature 98.4 [degF] Dr. Jacob Jennings DO Work Phone: [facility] 08-04-2025 11:48-0400 Body weight 83.[address] Jacob Jennings DO Work Phone: [facility] 08-04-2025 11:48-0400 Diastolic blood pressure 70 mm[Hg] Dr. Jacob Jennings DO Work Phone: [facility] 08-04-2025 11:48-0400 Heart rate 70 /min Dr. Jacob Jennings DO Work Phone: [facility] 08-04-2025 11:48-0400 Respiratory rate 16 /min Dr. Jacob Jennings DO Work Phone: [facility] 08-04-2025 11:48-0400 SaO2% (BldA) [Mass fraction] 95 % Dr. Jacob Jennings DO Work Phone: [facility] 08-04-2025 11:48-0400 Systolic blood pressure 132 mm[Hg] Dr. Jacob Jennings DO Work Phone: [facility] 07-26-2025 10:16-0400 Body height 165.[address] Jacob Jennings DO Work Phone: [facility] 07-26-2025 10:16-0400 Body mass index (BMI) [Ratio] 30.6 kg/m2 Dr. Jacob Jennings DO Work Phone: [facility] 07-26-2025 10:16-0400 Body temperature 99.3 [degF] Dr. Jacob Jennings DO Work Phone: [facility] 07-26-2025 10:16-0400 Body weight 83.[address] Jacob Jennings DO Work Phone: [facility] 07-26-2025 10:16-0400 Diastolic blood pressure 75 mm[Hg] Dr. Jacob Jennings DO Work Phone: [facility] 07-26-2025 10:16-0400 Heart rate 76 /min Dr. Jacob Jennings DO Work Phone: [facility] 07-26-2025 10:16-0400 Respiratory rate 18 /min Dr. Jacob Jennings DO Work Phone: [facility] 07-26-2025 10:16-0400 SaO2% (BldA) [Mass fraction] 96 % Dr. Jacob Jennings DO Work Phone: [facility] 07-26-2025 10:16-0400 Systolic blood pressure 149 mm[Hg] Dr. Jacob Jennings DO Work Phone: [facility] 07-05-2025 13:19-0400 Body height 165.[address] Jacob Jennings DO Work Phone: [facility] 07-05-2025 13:19-0400 Body mass index (BMI) [Ratio] 30.1 kg/m2 Dr. Jacob Jennings DO Work Phone: [facility] 07-05-2025 13:19-0400 Body temperature 99 [degF] Dr. Jacob Jennings DO Work Phone: [facility] 07-05-2025 13:19-0400 Body weight 82.[address] Jacob Jennings DO Work Phone: [facility] 07-05-2025 13:19-0400 Diastolic blood pressure 80 mm[Hg] Dr. Jacob Jennings DO Work Phone: [facility] 07-05-2025 13:19-0400 Heart rate 75 /min Dr. Jacob Jennings DO Work Phone: [facility] 07-05-2025 13:19-0400 Respiratory rate 18 /min Dr. Jacob Jennings DO Work Phone: [facility] 07-05-2025 13:19-0400 SaO2% (BldA) [Mass fraction] 95 % Dr. Jacob Jennings DO Work Phone: [facility] 07-05-2025 13:19-0400 Systolic blood pressure 135 mm[Hg] Dr. Jacob Jennings DO Work Phone: [facility] 06-28-2025 15:22-0400 Body temperature 98 [degF] Dr. Jacob Jennings DO Work Phone: [facility] 06-28-2025 15:22-0400 Diastolic blood pressure 60 mm[Hg] Dr. Jacob Jennings DO Work Phone: [facility] 06-28-2025 15:22-0400 Heart rate 70 /min Dr. Jacob Jennings DO Work Phone: [facility] 06-28-2025 15:22-0400 Respiratory rate 14 /min Dr. Jacob Jennings DO Work Phone: [facility] 06-28-2025 15:22-0400 SaO2% (BldA) [Mass fraction] 97 % Dr. Jacob Jennings DO Work Phone: [facility] 06-28-2025 15:22-0400 Systolic blood pressure 134 mm[Hg] Dr. Jacob Jennings DO Work Phone: [facility] 06-28-2025 14:40-0400 Body height 165.[address] Jacob Jennings DO Work Phone: [facility] 06-15-2025 11:13-0400 Body height 165.[address] Jacob Jennings DO Work Phone: [facility] 06-15-2025 11:13-0400 Body mass index (BMI) [Ratio] 29.2 kg/m2 Dr. Jacob Jennings DO Work Phone: [facility] 06-15-2025 11:13-0400 Body temperature 98.8 [degF] Dr. Jacob Jennings DO Work Phone: [facility] 06-15-2025 11:13-0400 Body weight 79.[address] Jacob Jennings DO Work Phone: [facility] 06-15-2025 11:13-0400 Diastolic blood pressure 71 mm[Hg] Dr. Jacob Jennings DO Work Phone: [facility] 06-15-2025 11:13-0400 Heart rate 71 /min Dr. Jacob Jennings DO Work Phone: [facility] 06-15-2025 11:13-0400 Respiratory rate 18 /min Dr. Jacob Jennings DO Work Phone: [facility] 06-15-2025 11:13-0400 SaO2% (BldA) [Mass fraction] 93 % Dr. Jacob Jennings DO Work Phone: [facility] 06-15-2025 11:13-0400 Systolic blood pressure 154 mm[Hg] Dr. Jacob Jennings DO Work Phone: [facility] 06-09-2025 08:35-0400 Body mass index (BMI) [Ratio] 29.7 kg/m2 Dr. Jacob Jennings DO Work Phone: [facility] 06-09-2025 08:35-0400 Body temperature 98.2 [degF] Dr. Jacob Jennings DO Work Phone: [facility] 06-09-2025 08:35-0400 Body weight 81.[address] Jacob Jennings DO Work Phone: [facility] 06-09-2025 08:35-0400 Diastolic blood pressure 61 mm[Hg] Dr. Jacob Jennings DO Work Phone: [facility] 06-09-2025 08:35-0400 Heart rate 79 /min Dr. Jacob Jennings DO Work Phone: [facility] 06-09-2025 08:35-0400 Respiratory rate 18 /min Dr. Jacob Jennings DO Work Phone: [facility] 06-09-2025 08:35-0400 SaO2% (BldA) [Mass fraction] 96 % Dr. Jacob Jennings DO Work Phone: [facility] 06-09-2025 08:35-0400 Systolic blood pressure 128 mm[Hg] Dr. Jacob Jennings DO Work Phone: [facility] 05-24-2025 10:33-0400 Body height 165.[address] Jacob Jennings DO Work Phone: [facility] 05-24-2025 10:33-0400 Body mass index (BMI) [Ratio] 29.5 kg/m2 Dr. Jacob Jennings DO Work Phone: [facility] 05-24-2025 10:33-0400 Body temperature 99.2 [degF] Dr. Jacob Jennings DO Work Phone: [facility] 05-24-2025 10:33-0400 Body weight 80.[address] Jacob Jennings DO Work Phone: [facility] 05-24-2025 10:33-0400 Diastolic blood pressure 60 mm[Hg] Dr. Jacob Jennings DO Work Phone: [facility] 05-24-2025 10:33-0400 Heart rate 73 /min Dr. Jacob Jennings DO Work Phone: [facility] 05-24-2025 10:33-0400 Respiratory rate 16 /min Dr. Jacob Jennings DO Work Phone: [facility] 05-24-2025 10:33-0400 SaO2% (BldA) [Mass fraction] 92 % Dr. Jacob Jennings DO Work Phone: [facility] 05-24-2025 10:33-0400 Systolic blood pressure 118 mm[Hg] Dr. Jacob Jennings DO Work Phone: [facility] 05-23-2025 11:01-0400 Diastolic blood pressure 70 mm[Hg] Francois Acevedo MD Work Phone: [facility] 05-23-2025 11:01-0400 Systolic blood pressure 128 mm[Hg] Francois Acevedo MD Work Phone: [facility] 05-23-2025 10:46-0400 Body height 165.1 cm Francois Acevedo MD Work Phone: [facility] 05-23-2025 10:46-0400 Body mass index (BMI) [Ratio] 29.46 kg/m2 Francois Acevedo MD Work Phone: [facility] 05-23-2025 10:46-0400 Body weight 80.3 kg Francois Acevedo MD Work Phone: [facility] 05-23-2025 10:46-0400 Heart rate 70 /min Francois Acevedo MD Work Phone: [facility] 05-23-2025 10:46-0400 Respiratory rate 16 /min Francois Acevedo MD Work Phone: [facility] 05-23-2025 10:46-0400 SaO2% (BldA) [Mass fraction] 95 % Francois Acevedo MD Work Phone: [facility] 05-02-2025 10:40-0400 Body height 165.[address] Jacob Jennings DO Work Phone: [facility] 05-02-2025 10:40-0400 Body mass index (BMI) [Ratio] 28.4 kg/m2 Dr. Jacob Jennings DO Work Phone: [facility] 05-02-2025 10:40-0400 Body temperature 98.8 [degF] Dr. Jacob Jennings DO Work Phone: [facility] 05-02-2025 10:40-0400 Body weight 77.[address] Jacob Jennings DO Work Phone: [facility] 05-02-2025 10:40-0400 Diastolic blood pressure 65 mm[Hg] Dr. Jacob Jennings DO Work Phone: [facility] 05-02-2025 10:40-0400 Heart rate 73 /min Dr. Jacob Jennings DO Work Phone: [facility] 05-02-2025 10:40-0400 Respiratory rate 18 /min Dr. Jacob Jennings DO Work Phone: [facility] 05-02-2025 10:40-0400 SaO2% (BldA) [Mass fraction] 94 % Dr. Jacob Jennings DO Work Phone: [facility] 05-02-2025 10:40-0400 Systolic blood pressure 127 mm[Hg] Dr. Jacob Jennings DO Work Phone: [facility] 04-18-2025 15:46-0400 Body height 165.1 cm Jacob Jennings DO Work Phone: [facility] 04-18-2025 15:46-0400 Body mass index (BMI) [Ratio] 28.62 kg/m2 Jacob Jennings DO Work Phone: [facility] 04-18-2025 15:46-0400 Body temperature 97.9 [degF] Jacob Jennings DO Work Phone: [facility] 04-18-2025 15:46-0400 Body weight 78.02 kg Jacob Jennings DO Work Phone: [facility] 04-18-2025 15:46-0400 Diastolic blood pressure 70 mm[Hg] Jacob Jennings DO Work Phone: [facility] 04-18-2025 15:46-0400 Heart rate 88 /min Jacob Jennings DO Work Phone: [facility] 04-18-2025 15:46-0400 SaO2% (BldA) [Mass fraction] 95 % Jacob Jennings DO Work Phone: [facility] 04-18-2025 15:46-0400 Systolic blood pressure 130 mm[Hg] Jacob Jennings DO Work Phone: [facility] 04-12-2025 13:32-0400 Body height 165.[address] Jacob Jennings DO Work Phone: [facility] 04-12-2025 13:32-0400 Body mass index (BMI) [Ratio] 28.4 kg/m2 Dr. Jacob Jennings DO Work Phone: [facility] 04-12-2025 13:32-0400 Body temperature 99.2 [degF] Dr. Jacob Jennings DO Work Phone: [facility] 04-12-2025 13:32-0400 Body weight 77.[address] Jacob Jennings DO Work Phone: [facility] 04-12-2025 13:32-0400 Diastolic blood pressure 68 mm[Hg] Dr. Jacob Jennings DO Work Phone: [facility] 04-12-2025 13:32-0400 Heart rate 75 /min Dr. Jacob Jennings DO Work Phone: [facility] 04-12-2025 13:32-0400 Respiratory rate 16 /min Dr. Jacob Jennings DO Work Phone: [facility] 04-12-2025 13:32-0400 SaO2% (BldA) [Mass fraction] 93 % Dr. Jacob Jennings DO Work Phone: [facility] 04-12-2025 13:32-0400 Systolic blood pressure 125 mm[Hg] Dr. Jacob Jennings DO Work Phone: [facility] 03-29-2025 11:21-0400 Body height 165.[address] Jacob Jennings DO Work Phone: [facility] 03-29-2025 11:21-0400 Body mass index (BMI) [Ratio] 28.8 kg/m2 Dr. Jaocb Jennings DO Work Phone: [facility] 03-29-2025 11:21-0400 Body temperature 98.8 [degF] Dr. Jacob Jennings DO Work Phone: [facility] 03-29-2025 11:21-0400 Body weight 78.[address] Jacob Jennings DO Work Phone: [facility] 03-29-2025 11:21-0400 Diastolic blood pressure 70 mm[Hg] Dr. Jacob Jennings DO Work Phone: [facility] 03-29-2025 11:21-0400 Heart rate 80 /min Dr. Jacob Jennings DO Work Phone: [facility] 03-29-2025 11:21-0400 Respiratory rate 18 /min Dr. Jacob Jennings DO Work Phone: [facility] 03-29-2025 11:21-0400 SaO2% (BldA) [Mass fraction] 92 % Dr. Jacob Jennings DO Work Phone: [facility] 03-29-2025 11:21-0400 Systolic blood pressure 137 mm[Hg] Dr. Jacob Jennings DO Work Phone: [facility] 03-24-2025 15:35-0400 Inhaled oxygen flow rate 3 L/min Dr. Jacob Jennings DO Work Phone: [facility] 03-24-2025 15:35-0400 SaO2% (BldA) [Mass fraction] 94 % Dr. Jacob Jennings DO Work Phone: [facility] 03-24-2025 14:46-0400 Body temperature 98.6 [degF] Dr. Jacob Jennings DO Work Phone: [facility] 03-24-2025 14:46-0400 Diastolic blood pressure 59 mm[Hg] Dr. Jacob Jennings DO Work Phone: [facility] 03-24-2025 14:46-0400 Heart rate 85 /min Dr. Jacob Jennings DO Work Phone: [facility] 03-24-2025 14:46-0400 Respiratory rate 18 /min Dr. Jacob Jennings DO Work Phone: [facility] 03-24-2025 14:46-0400 Systolic blood pressure 114 mm[Hg] Dr. Jacob Jennings DO Work Phone: [facility] 03-24-2025 04:41-0400 Body mass index (BMI) [Ratio] 29.7 kg/m2 Dr. Jacob Jennings DO Work Phone: [facility] 03-24-2025 04:41-0400 Body weight 81.[address] Jacob Jennings DO Work Phone: [facility] 03-23-2025 13:57-0400 Body height 165.[address] Jacob Jennings DO Work Phone: [facility] 03-21-2025 17:14-0400 Diastolic blood pressure 47 mm[Hg] Dr. Jacob Jennings DO Work Phone: [facility] 03-21-2025 17:14-0400 Heart rate 86 /min Dr. Jacob Jennings DO Work Phone: [facility] 03-21-2025 17:14-0400 Inhaled oxygen flow rate 2 L/min Dr. Jacob Jennings DO Work Phone: [facility] 03-21-2025 17:14-0400 Respiratory rate 16 /min Dr. Jacob Jennings DO Work Phone: [facility] 03-21-2025 17:14-0400 SaO2% (BldA) [Mass fraction] 94 % Dr. Jacob Jennings DO Work Phone: [facility] 03-21-2025 17:14-0400 Systolic blood pressure 108 mm[Hg] Dr. Jacob Jennings DO Work Phone: [facility] 03-21-2025 16:22-0400 Body temperature 98.2 [degF] Dr. Jacob Jennings DO Work Phone: [facility] 03-21-2025 09:47-0400 Body mass index (BMI) [Ratio] 29.2 kg/m2 Dr. Jacob Jennings DO Work Phone: [facility] 03-21-2025 09:47-0400 Body weight 79.[address] Jacob Jennings DO Work Phone: [facility] 03-21-2025 09:45-0400 Body height 165.[address] Jacob Jennings DO Work Phone: [facility] 03-15-2025 10:32-0400 Body mass index (BMI) [Ratio] 29 kg/m2 Dr. Jacob Jennings DO Work Phone: [facility] 03-15-2025 10:32-0400 Body temperature 98 [degF] Dr. Jacob Jennings DO Work Phone: [facility] 03-15-2025 10:32-0400 Body weight 79.[address] Jacob Jennings DO Work Phone: [facility] 03-15-2025 10:32-0400 Diastolic blood pressure 49 mm[Hg] Dr. Jacob Jennings DO Work Phone: [facility] 03-15-2025 10:32-0400 Heart rate 81 /min Dr. Jacob Jennings DO Work Phone: [facility] 03-15-2025 10:32-0400 Respiratory rate 16 /min Dr. Jacob Jennings DO Work Phone: [facility] 03-15-2025 10:32-0400 SaO2% (BldA) [Mass fraction] 94 % Dr. Jacob Jennings DO Work Phone: [facility] 03-15-2025 10:32-0400 Systolic blood pressure 104 mm[Hg] Dr. Jacob Jennings DO Work Phone: [facility] 03-15-2025 09:43-0400 Body temperature 98 [degF] Dr. Jacob Jennings DO Work Phone: [facility] 03-15-2025 09:43-0400 Diastolic blood pressure 49 mm[Hg] Dr. Jacob Jennings DO Work Phone: [facility] 03-15-2025 09:43-0400 Heart rate 81 /min Dr. Jacob Jennings DO Work Phone: [facility] 03-15-2025 09:43-0400 Respiratory rate 16 /min Dr. Jacob Jennings DO Work Phone: [facility] 03-15-2025 09:43-0400 SaO2% (BldA) [Mass fraction] 94 % Dr. Jacob Jennings DO Work Phone: [facility] 03-15-2025 09:43-0400 Systolic blood pressure 104 mm[Hg] Dr. Jacob Jennings DO Work Phone: [facility] 03-15-2025 09:37-0400 Body mass index (BMI) [Ratio] 29 kg/m2 Dr. Jacob Jennings DO Work Phone: [facility] 02-21-2025 14:32-0400 Body height 165.1 cm Jacob Jennings DO Work Phone: [facility] 02-21-2025 14:32-0400 Body mass index (BMI) [Ratio] 29.82 kg/m2 Jacob Jennings DO Work Phone: [facility] 02-21-2025 14:32-0400 Body temperature 100.2 [degF] Jacob Jennings DO Work Phone: [facility] 02-21-2025 14:32-0400 Body weight 81.28 kg Jacob Jennings DO Work Phone: [facility] 02-21-2025 14:32-0400 Diastolic blood pressure 64 mm[Hg] Jacob Jennings DO Work Phone: [facility] 02-21-2025 14:32-0400 Heart rate 90 /min Jacob Jennings DO Work Phone: [facility] 02-21-2025 14:32-0400 SaO2% (BldA) [Mass fraction] 92 % Jacob Jennings DO Work Phone: [facility] 02-21-2025 14:32-0400 Systolic blood pressure 110 mm[Hg] Jacob Jennings DO Work Phone: [facility] 02-01-2025 10:35-0400 Body mass index (BMI) [Ratio] 29.7 kg/m2 Dr. Jacob Jennings DO Work Phone: [facility] 02-01-2025 10:35-0400 Body temperature 97.9 [degF] Dr. Jacob Jennings DO Work Phone: [facility] 02-01-2025 10:35-0400 Body weight 81.[address] Jacob Jennings DO Work Phone: [facility] 02-01-2025 10:35-0400 Diastolic blood pressure 62 mm[Hg] Dr. Jacob Jennings DO Work Phone: [facility] 02-01-2025 10:35-0400 Heart rate 72 /min Dr. Jacob Jennings DO Work Phone: [facility] 02-01-2025 10:35-0400 Respiratory rate 16 /min Dr. Jacob Jennings DO Work Phone: [facility] 02-01-2025 10:35-0400 SaO2% (BldA) [Mass fraction] 95 % Dr. Jacob Jennings DO Work Phone: [facility] 02-01-2025 10:35-0400 Systolic blood pressure 114 mm[Hg] Dr. Jacob Jennings DO Work Phone: [facility] 01-18-2025 16:00-0400 Body temperature 98.3 [degF] Dr. Jacob Jennings DO Work Phone: [facility] 01-18-2025 16:00-0400 Diastolic blood pressure 57 mm[Hg] Dr. Jacob Jennings DO Work Phone: [facility] 01-18-2025 16:00-0400 Heart rate 111 /min Dr. Jacob Jennings DO Work Phone: [facility] 01-18-2025 16:00-0400 Inhaled oxygen flow rate 2 L/min Dr. Jacob Jennings DO Work Phone: [facility] 01-18-2025 16:00-0400 Respiratory rate 20 /min Dr. Jacob Jennings DO Work Phone: [facility] 01-18-2025 16:00-0400 SaO2% (BldA) [Mass fraction] 92 % Dr. Jacob Jennings DO Work Phone: [facility] 01-18-2025 16:00-0400 Systolic blood pressure 121 mm[Hg] Dr. Jacob Jennings DO Work Phone: [facility] 01-18-2025 05:35-0400 Body mass index (BMI) [Ratio] 29.7 kg/m2 Dr. Jacob Jennings DO Work Phone: [facility] 01-18-2025 05:35-0400 Body weight 81.[address] Jacob Jennings DO Work Phone: [facility] 01-17-2025 16:41-0400 Inhaled oxygen concentration 48 % Dr. Jacob Jennings DO Work Phone: [facility] 01-07-2025 05:00-0500 Body temperature 99.8 [degF] Dr. Jacob Jennings DO Work Phone: [facility] 01-07-2025 05:00-0500 Diastolic blood pressure 64 mm[Hg] Dr. Jacob Jennings DO Work Phone: [facility] 01-07-2025 05:00-0500 Heart rate 89 /min Dr. Jacob Jennings DO Work Phone: [facility] 01-07-2025 05:00-0500 Inhaled oxygen flow rate 2 L/min Dr. Jacob Jennings DO Work Phone: [facility] 01-07-2025 05:00-0500 Respiratory rate 18 /min Dr. Jacob Jennings DO Work Phone: [facility] 01-07-2025 05:00-0500 SaO2% (BldA) [Mass fraction] 94 % Dr. Jacob Jennings DO Work Phone: [facility] 01-07-2025 05:00-0500 Systolic blood pressure 115 mm[Hg] Dr. Jacob Jennings DO Work Phone: [facility] 01-07-2025 02:22-0500 Body mass index (BMI) [Ratio] 31.8 kg/m2 Dr. Jacob Jennings DO Work Phone: [facility] 01-07-2025 02:22-0500 Body weight 86.[address] Jacob Jennings DO Work Phone: [facility] 12-30-2024 10:30-0500 Diastolic blood pressure 78 mm[Hg] Jacob Jennings DO Work Phone: [facility] 12-30-2024 10:30-0500 Heart rate 68 /min Jacob Jennings DO Work Phone: [facility] 12-30-2024 10:30-0500 Respiratory rate 14 /min Jacob Jennings DO Work Phone: [facility] 12-30-2024 10:30-0500 Systolic blood pressure 118 mm[Hg] Jacob Jennings DO Work Phone: [facility] 12-30-2024 09:57-0500 Body height 165.1 cm Jacob Jennings DO Work Phone: [facility] 12-30-2024 09:57-0500 Body mass index (BMI) [Ratio] 33.95 kg/m2 Jacob Jennings DO Work Phone: [facility] 12-30-2024 09:57-0500 Body temperature 98.01 [degF] Jacob Jennings DO Work Phone: [facility] 12-30-2024 09:57-0500 Body weight 92.53 kg Jacob Jennings DO Work Phone: [facility] 12-30-2024 09:57-0500 SaO2% (BldA) [Mass fraction] 94 % Jacob Jennings DO Work Phone: [facility] 12-21-2024 09:28-0500 Body mass index (BMI) [Ratio] 34.9 kg/m2 Dr. Jacob Jennings DO Work Phone: [facility] 12-21-2024 09:28-0500 Body temperature 98.5 [degF] Dr. Jacob Jennings DO Work Phone: [facility] 12-21-2024 09:28-0500 Body weight 95.[address] Jacob Jennings DO Work Phone: [facility] 12-21-2024 09:28-0500 Diastolic blood pressure 64 mm[Hg] Dr. Jacob Jennings DO Work Phone: [facility] 12-21-2024 09:28-0500 Heart rate 76 /min Dr. Jacob Jennings DO Work Phone: [facility] 12-21-2024 09:28-0500 Respiratory rate 18 /min Dr. Jacob Jennings DO Work Phone: [facility] 12-21-2024 09:28-0500 SaO2% (BldA) [Mass fraction] 97 % Dr. Jacob Jennings DO Work Phone: [facility] 12-21-2024 09:28-0500 Systolic blood pressure 136 mm[Hg] Dr. Jacob Jennings DO Work Phone: [facility] 12-16-2024 14:13-0500 Body temperature 97.3 [degF] Dr. Jacob Jennings DO Work Phone: [facility] 12-16-2024 14:13-0500 Diastolic blood pressure 64 mm[Hg] Dr. Jacob Jennings DO Work Phone: [facility] 12-16-2024 14:13-0500 Heart rate 87 /min Dr. Jacob Jennings DO Work Phone: [facility] 12-16-2024 14:13-0500 Respiratory rate 20 /min Dr. Jacob Jennings DO Work Phone: [facility] 12-16-2024 14:13-0500 SaO2% (BldA) [Mass fraction] 96 % Dr. Jacob Jennings DO Work Phone: [facility] 12-16-2024 14:13-0500 Systolic blood pressure 137 mm[Hg] Dr. Jacob Jennings DO Work Phone: [facility] 12-16-2024 03:58-0500 Body mass index (BMI) [Ratio] 34 kg/m2 Dr. Jacob Jennings DO Work Phone: [facility] 12-16-2024 03:58-0500 Body weight 92.[address] Jacob Jennings DO Work Phone: [facility] 12-15-2024 20:30-0500 Inhaled oxygen flow rate 2 L/min Dr. Jacob Jennings DO Work Phone: [facility] 12-06-2024 11:04-0500 Body height 165.1 cm Jacob Jennings DO Work Phone: [facility] 12-06-2024 11:04-0500 Body mass index (BMI) [Ratio] 35.54 kg/m2 Jacob Jennings DO Work Phone: [facility] 12-06-2024 11:04-0500 Body temperature 98.1 [degF] Jacob Jennings DO Work Phone: [facility] 12-06-2024 11:04-0500 Body weight 96.89 kg Jacob Jennings DO Work Phone: [facility] 12-06-2024 11:04-0500 Diastolic blood pressure 67 mm[Hg] Jacob Jennings DO Work Phone: [facility] 12-06-2024 11:04-0500 Heart rate 90 /min Jacob Jennings DO Work Phone: [facility] 12-06-2024 11:04-0500 SaO2% (BldA) [Mass fraction] 93 % Jacob Jennings DO Work Phone: [facility] 12-06-2024 11:04-0500 Systolic blood pressure 107 mm[Hg] Jacob Jennings DO Work Phone: [facility] 12-02-2024 09:21-0500 Body mass index (BMI) [Ratio] 35.6 kg/m2 Dr. Jacob Jennings DO Work Phone: [facility] 12-02-2024 09:21-0500 Body temperature 98.2 [degF] Dr. Jacob Jennings DO Work Phone: [facility] 12-02-2024 09:21-0500 Body weight 97.[address] Jacob Jennings DO Work Phone: [facility] 12-02-2024 09:21-0500 Diastolic blood pressure 72 mm[Hg] Dr. Jacob Jennings DO Work Phone: [facility] 12-02-2024 09:21-0500 Heart rate 73 /min Dr. Jacob Jennings DO Work Phone: [facility] 12-02-2024 09:21-0500 Respiratory rate 18 /min Dr. Jacob Jennings DO Work Phone: [facility] 12-02-2024 09:21-0500 SaO2% (BldA) [Mass fraction] 91 % Dr. Jacob Jennings DO Work Phone: [facility] 12-02-2024 09:21-0500 Systolic blood pressure 132 mm[Hg] Dr. Jacob Jennings DO Work Phone: [facility] 11-18-2024 09:48-0500 Body height 165.1 cm Francois Acevedo MD Work Phone: [facility] 11-18-2024 09:48-0500 Body mass index (BMI) [Ratio] 35.77 kg/m2 Francois Acevedo MD Work Phone: [facility] 11-18-2024 09:48-0500 Body weight 97.5 kg Francois Acevedo MD Work Phone: [facility] 11-18-2024 09:48-0500 Diastolic blood pressure 71 mm[Hg] Francois Acevedo MD Work Phone: [facility] 11-18-2024 09:48-0500 Heart rate 81 /min Francois Acevedo MD Work Phone: [facility] 11-18-2024 09:48-0500 Respiratory rate 16 /min Francois Acevedo MD Work Phone: [facility] 11-18-2024 09:48-0500 SaO2% (BldA) [Mass fraction] 92 % Francois Acevedo MD Work Phone: [facility] 11-18-2024 09:48-0500 Systolic blood pressure 136 mm[Hg] Francois Acevedo MD Work Phone: [facility] 10-20-2024 13:30-0500 Diastolic blood pressure 78 mm[Hg] Jacob Saldañaa DO Work Phone: [facility] 10-20-2024 13:30-0500 Systolic blood pressure 134 mm[Hg] Jacob Saldañaa DO Work Phone: [facility] 10-20-2024 12:59-0500 Body height 167.6 cm Jacob Saldañaa DO Work Phone: [facility] 10-20-2024 12:59-0500 Body mass index (BMI) [Ratio] 35.35 kg/m2 Jacob Saldañaa DO Work Phone: [facility] 10-20-2024 12:59-0500 Body temperature 99 [degF] Jacob Saldañaa DO Work Phone: [facility] 10-20-2024 12:59-0500 Body weight 99.34 kg Jacob Saldañaa DO Work Phone: [facility] 10-20-2024 12:59-0500 Heart rate 77 /min Jacob Saldañaa DO Work Phone: [facility] 10-20-2024 12:59-0500 SaO2% (BldA) [Mass fraction] 97 % Jacob Saldañaa DO Work Phone: [facility] 09-19-2024 14:35-0500 Body height 165.1 cm Jacob Saldañaa DO Work Phone: [facility] 09-19-2024 14:35-0500 Body mass index (BMI) [Ratio] 34.95 kg/m2 Jacob Anamikalla DO Work Phone: [facility] 09-19-2024 14:35-0500 Body temperature 98.8 [degF] Jacob Saldañaa DO Work Phone: [facility] 09-19-2024 14:35-0500 Body weight 95.25 kg Jacob Saldañaa DO Work Phone: [facility] 09-19-2024 14:35-0500 Diastolic blood pressure 78 mm[Hg] Jacob Saldañaa DO Work Phone: [facility] 09-19-2024 14:35-0500 Heart rate 78 /min Jacob Saladñaa DO Work Phone: [facility] 09-19-2024 14:35-0500 SaO2% (BldA) [Mass fraction] 95 % Jacob Saldañaa DO Work Phone: [facility] 09-19-2024 14:35-0500 Systolic blood pressure 130 mm[Hg] Jacob Saldañaa DO Work Phone: [facility] 05-20-2024 09:59-0400 Body height 165.1 cm Francois Acevedo MD Work Phone: [facility] 05-20-2024 09:59-0400 Body mass index (BMI) [Ratio] 34.6 kg/m2 Francois Acevedo MD Work Phone: [facility] 05-20-2024 09:59-0400 Body weight 94.3 kg Francois Acevedo MD Work Phone: [facility] 05-20-2024 09:59-0400 Diastolic blood pressure 71 mm[Hg] Francois Acevedo MD Work Phone: [facility] 05-20-2024 09:59-0400 Heart rate 72 /min Francois Acevedo MD Work Phone: [facility] 05-20-2024 09:59-0400 Respiratory rate 16 /min Francois Acevedo MD Work Phone: [facility] 05-20-2024 09:59-0400 SaO2% (BldA) [Mass fraction] 95 % Francois Acevedo MD Work Phone: [facility] 05-20-2024 09:59-0400 Systolic blood pressure 128 mm[Hg] Francois Acevedo MD Work Phone: [facility] 04-19-2024 14:03-0400 Diastolic blood pressure 76 mm[Hg] Jacob Dick Work Phone: [facility] 04-19-2024 14:03-0400 Heart rate 68 /min Jacob Jennings Work Phone: [facility] 04-19-2024 14:03-0400 Systolic blood pressure 136 mm[Hg] Jacob Anamikawhitney Work Phone: [facility] 04-19-2024 13:22-0400 Body height 165.1 cm Jacob Willsonwhitney Work Phone: [facility] 04-19-2024 13:22-0400 Body mass index (BMI) [Ratio] 34.45 kg/m2 Jacob Willsonwhitney Work Phone: [facility] 04-19-2024 13:22-0400 Body weight 93.89 kg Jacob Willsonharishpiper TAYLOR Work Phone: [facility] 04-19-2024 13:22-0400 SaO2% (BldA) [Mass fraction] 94 % Jacob Jennings DO Work Phone: [facility] 03-09-2024 13:45-0400 Body temperature 98.6 [degF] Dr. Jacob Jennings Work Phone: [facility] 03-09-2024 13:45-0400 Diastolic blood pressure 67 mm[Hg] Dr. Jacob Jennings Work Phone: [facility] 03-09-2024 13:45-0400 Heart rate 84 /min Dr. Jacob Jennings Work Phone: [facility] 03-09-2024 13:45-0400 Respiratory rate 18 /min Dr. Jacob Jennings Work Phone: [facility] 03-09-2024 13:45-0400 SaO2% (BldA) [Mass fraction] 96 % Dr. Jacob Jennings Work Phone: [facility] 03-09-2024 13:45-0400 Systolic blood pressure 146 mm[Hg] Dr. Jacob Jennings Work Phone: [facility] 03-08-2024 19:50-0400 Inhaled oxygen flow rate 2 L/min Dr. Jacob Jennings Work Phone: [facility] 03-08-2024 16:20-0400 Body height 165.[address] Jacob Jennings Work Phone: [facility] 03-08-2024 16:20-0400 Body mass index (BMI) [Ratio] 35.1 kg/m2 Dr. Jacob Jennings Work Phone: [facility] 03-08-2024 16:20-0400 Body weight 95.[address] Jacob Jennings Work Phone: [facility] 03-07-2024 11:54-0400 Body temperature 96.5 [degF] Dr. Jacob Jennings Work Phone: [facility] 03-07-2024 11:54-0400 Diastolic blood pressure 53 mm[Hg] Dr. Jacob Jennings Work Phone: [facility] 03-07-2024 11:54-0400 Heart rate 75 /min Dr. Jacob Jennings Work Phone: [facility] 03-07-2024 11:54-0400 Respiratory rate 16 /min Dr. Jacob Jennings Work Phone: [facility] 03-07-2024 11:54-0400 Systolic blood pressure 123 mm[Hg] Dr. Jacob Jennings Work Phone: [facility] 03-07-2024 09:56-0400 SaO2% (BldA) [Mass fraction] 95 % Dr. Jacob Jennings Work Phone: [facility] 03-02-2024 10:52-0400 Body height 165.[address] Jacob Jennings Work Phone: [facility] 03-02-2024 10:52-0400 Body mass index (BMI) [Ratio] 35.5 kg/m2 Dr. Jacob Jennings Work Phone: [facility] 03-02-2024 10:52-0400 Body temperature 98.8 [degF] Dr. Jacob Jennings Work Phone: 7(018)[phone] [place] [address] 03-02-2024 10:52-0400 Body weight 96.[address] Jacob Jennings Work Phone: [facility] 03-02-2024 10:52-0400 Diastolic blood pressure 70 mm[Hg] Dr. Jacob Jennings Work Phone: [facility] 03-02-2024 10:52-0400 Heart rate 70 /min Dr. Jacob Jennings Work Phone: [facility] 03-02-2024 10:52-0400 Respiratory rate 18 /min Dr. Jacob Jennings Work Phone: [facility] 03-02-2024 10:52-0400 SaO2% (BldA) [Mass fraction] 94 % Dr. Jacob Jennings Work Phone: [facility] 03-02-2024 10:52-0400 Systolic blood pressure 124 mm[Hg] Dr. Jacob Jennings Work Phone: [facility] 02-19-2024 10:35-0400 Body height 165.1 cm Francois Acevedo MD Work Phone: [facility] 02-19-2024 10:35-0400 Body weight 96.6 kg Francois Acevedo MD Work Phone: [facility] 02-19-2024 10:35-0400 Diastolic blood pressure 68 mm[Hg] Francois Acevedo MD Work Phone: [facility] 02-19-2024 10:35-0400 Heart rate 81 /min Francois Acevedo MD Work Phone: [facility] 02-19-2024 10:35-0400 Respiratory rate 16 /min Francois Acevedo MD Work Phone: [facility] 02-19-2024 10:35-0400 SaO2% (BldA) [Mass fraction] 93 % Francois Acevedo MD Work Phone: [facility] 02-19-2024 10:35-0400 Systolic blood pressure 123 mm[Hg] Francois Acevedo MD Work Phone: [facility] 02-10-2024 13:38-0400 Diastolic blood pressure 64 mm[Hg] Dr. Jacob Jennings Work Phone: [facility] 02-10-2024 13:38-0400 Heart rate 74 /min Dr. Jacob Jennings Work Phone: [facility] 02-10-2024 13:38-0400 Systolic blood pressure 124 mm[Hg] Dr. Jacob Jennings Work Phone: [facility] 02-10-2024 11:41-0400 Body mass index (BMI) [Ratio] 35.6 kg/m2 Dr. Jacob Jennings Work Phone: [facility] 02-10-2024 11:41-0400 Body temperature 9.3 [degF] Dr. Jacob Jennings Work Phone: [facility] 02-10-2024 11:41-0400 Body weight 97.[address] Jacob Jennings Work Phone: [facility] 02-10-2024 11:41-0400 Diastolic blood pressure 75 mm[Hg] Dr. Jacbo Jennings Work Phone: [facility] 02-10-2024 11:41-0400 Heart rate 74 /min Dr. Jacob Jennings Work Phone: [facility] 02-10-2024 11:41-0400 Respiratory rate 18 /min Dr. Jacob Jennings Work Phone: [facility] 02-10-2024 11:41-0400 SaO2% (BldA) [Mass fraction] 94 % Dr. Jacob Jennings Work Phone: [facility] 02-10-2024 11:41-0400 Systolic blood pressure 147 mm[Hg] Dr. Jacob Jennings Work Phone: [facility] 01-20-2024 11:44-0400 Respiratory rate 18 /min Dr. Jacob Jennings Work Phone: [facility] 01-20-2024 09:23-0400 Body mass index (BMI) [Ratio] 34.9 kg/m2 Dr. Jacob Jennings Work Phone: [facility] 01-20-2024 09:23-0400 Body temperature 95.6 [degF] Dr. Jacob Jennings Work Phone: [facility] 01-20-2024 09:23-0400 Body weight 95.[address] Jacob Jennings Work Phone: [facility] 01-20-2024 09:23-0400 Diastolic blood pressure 74 mm[Hg] Dr. Jacob Jennings Work Phone: [facility] 01-20-2024 09:23-0400 Heart rate 73 /min Dr. Jacob Jennings Work Phone: [facility] 01-20-2024 09:23-0400 Respiratory rate 18 /min Dr. Jacob Jennings Work Phone: [facility] 01-20-2024 09:23-0400 SaO2% (BldA) [Mass fraction] 97 % Dr. Jacob Jennings Work Phone: [facility] 01-20-2024 09:23-0400 Systolic blood pressure 136 mm[Hg] Dr. Jacob Jennings Work Phone: [facility] 01-15-2024 12:55-0500 Body height 165.[address] Jacob Jennings Work Phone: [facility] 01-15-2024 12:55-0500 Body mass index (BMI) [Ratio] 35.1 kg/m2 Dr. Jacob Jennings Work Phone: [facility] 01-15-2024 12:55-0500 Body weight 95.[address] Jacob Jennings Work Phone: [facility] 01-08-2024 10:47-0500 Body height 165.[address] Jacob Jennings Work Phone: [facility] 01-08-2024 10:47-0500 Body mass index (BMI) [Ratio] 35.1 kg/m2 Dr. Jacob Jennings Work Phone: [facility] 01-08-2024 10:47-0500 Body temperature 98 [degF] Dr. Jacob Jennings Work Phone: [facility] 01-08-2024 10:47-0500 Body weight 95.[address] Jacob Jennings Work Phone: [facility] 01-08-2024 10:47-0500 Diastolic blood pressure 78 mm[Hg] Dr. Jacob Jennings Work Phone: [facility] 01-08-2024 10:47-0500 Heart rate 74 /min Dr. Jacob Jennings Work Phone: [facility] 01-08-2024 10:47-0500 Respiratory rate 16 /min Dr. Jacob Jennings Work Phone: [facility] 01-08-2024 10:47-0500 SaO2% (BldA) [Mass fraction] 94 % Dr. Jacob Jennings Work Phone: [facility] 01-08-2024 10:47-0500 Systolic blood pressure 122 mm[Hg] Dr. Jacob Jennings Work Phone: [facility] 01-07-2024 13:55-0500 Body height 165.1 cm Jacob Jennings DO Work Phone: [facility] 01-07-2024 13:55-0500 Body mass index (BMI) [Ratio] 35.11 kg/m2 Jacob Jennings DO Work Phone: [facility] 01-07-2024 13:55-0500 Body temperature 99.7 [degF] Jacob Jennings DO Work Phone: [facility] 01-07-2024 13:55-0500 Body weight 95.71 kg Jacob Jennings DO Work Phone: [facility] 01-07-2024 13:55-0500 Diastolic blood pressure 60 mm[Hg] Jacob Jennings DO Work Phone: [facility] 01-07-2024 13:55-0500 Heart rate 77 /min Jacob Jennings DO Work Phone: [facility] 01-07-2024 13:55-0500 SaO2% (BldA) [Mass fraction] 97 % Jacob Jennings DO Work Phone: [facility] 01-07-2024 13:55-0500 Systolic blood pressure 122 mm[Hg] Jacob Jennings DO Work Phone: [facility] 12-30-2023 10:42-0500 Body mass index (BMI) [Ratio] 34.5 kg/m2 Dr. Jacob Jennings Work Phone: [facility] 12-30-2023 10:42-0500 Body temperature 98 [degF] Dr. Jacob Jennings Work Phone: [facility] 12-30-2023 10:42-0500 Body weight 94.[address] Jacob Jennings Work Phone: [facility] 12-30-2023 10:42-0500 Diastolic blood pressure 68 mm[Hg] Dr. Jacob Jennings Work Phone: [facility] 12-30-2023 10:42-0500 Heart rate 77 /min Dr. Jacob Jennings Work Phone: [facility] 12-30-2023 10:42-0500 Respiratory rate 18 /min Dr. Jacob Jennings Work Phone: [facility] 12-30-2023 10:42-0500 SaO2% (BldA) [Mass fraction] 93 % Dr. Jacob Jennings Work Phone: [facility] 12-30-2023 10:42-0500 Systolic blood pressure 123 mm[Hg] Dr. Jacob Jennings Work Phone: [facility] 12-14-2023 15:35-0500 Body temperature 99 [degF] Dr. Jacob Jennings Work Phone: [facility] 12-14-2023 15:35-0500 Diastolic blood pressure 70 mm[Hg] Dr. Jacob Jennings Work Phone: [facility] 12-14-2023 15:35-0500 Respiratory rate 16 /min Dr. Jacob Jennings Work Phone: [facility] 12-14-2023 15:35-0500 Systolic blood pressure 124 mm[Hg] Dr. Jacob Jennings Work Phone: [facility] 12-14-2023 13:50-0500 Heart rate 77 /min Dr. Jacob Jennings Work Phone: [facility] 12-14-2023 13:50-0500 SaO2% (BldA) [Mass fraction] 95 % Dr. Jacob Jennings Work Phone: [facility] 12-09-2023 10:46-0500 Body mass index (BMI) [Ratio] 33.9 kg/m2 Dr. Jacob Jennings Work Phone: [facility] 12-09-2023 10:46-0500 Body temperature 99.2 [degF] Dr. Jacob Jennings Work Phone: [facility] 12-09-2023 10:46-0500 Body weight 92.[address] Jacob Jennings Work Phone: [facility] 12-09-2023 10:46-0500 Diastolic blood pressure 70 mm[Hg] Dr. Jacob Jennings Work Phone: [facility] 12-09-2023 10:46-0500 Heart rate 80 /min Dr. Jacob Jennings Work Phone: [facility] 12-09-2023 10:46-0500 Respiratory rate 18 /min Dr. Jacob Jennings Work Phone: [facility] 12-09-2023 10:46-0500 SaO2% (BldA) [Mass fraction] 94 % Dr. Jacob Jennings Work Phone: [facility] 12-09-2023 10:46-0500 Systolic blood pressure 113 mm[Hg] Dr. Jacob Jennings Work Phone: [facility] 12-04-2023 08:31-0500 Body mass index (BMI) [Ratio] 34.1 kg/m2 Dr. Jacob Jennings Work Phone: [facility] 12-04-2023 08:31-0500 Body temperature 98 [degF] Dr. Jacob Jennings Work Phone: [facility] 12-04-2023 08:31-0500 Body weight 92.[address] Jacob Jennings Work Phone: [facility] 12-04-2023 08:31-0500 Diastolic blood pressure 62 mm[Hg] Dr. Jacob Jennings Work Phone: [facility] 12-04-2023 08:31-0500 Heart rate 73 /min Dr. Jacob Jennings Work Phone: [facility] 12-04-2023 08:31-0500 Respiratory rate 18 /min Dr. Jacob Jennings Work Phone: [facility] 12-04-2023 08:31-0500 SaO2% (BldA) [Mass fraction] 96 % Dr. Jacob Jennings Work Phone: [facility] 12-04-2023 08:31-0500 Systolic blood pressure 121 mm[Hg] Dr. Jacob Jennings Work Phone: [facility] 11-24-2023 15:15-0500 Body height 165.1 cm Em Philip PA-C Work Phone: [facility] 11-24-2023 15:15-0500 Body mass index (BMI) [Ratio] 35.11 kg/m2 Em Philip PA-C Work Phone: [facility] 11-24-2023 15:15-0500 Body temperature 98.71 [degF] Em Philip PA-C Work Phone: [facility] 11-24-2023 15:15-0500 Body weight 95.71 kg Em Philip PA-C Work Phone: [facility] 11-24-2023 15:15-0500 Diastolic blood pressure 64 mm[Hg] Em Philip PA-C Work Phone: [facility] 11-24-2023 15:15-0500 Heart rate 88 /min Em Philip PA-C Work Phone: [facility] 11-24-2023 15:15-0500 SaO2% (BldA) [Mass fraction] 95 % Em Philip PA-C Work Phone: [facility] 11-24-2023 15:15-0500 Systolic blood pressure 138 mm[Hg] Em Philip PA-C Work Phone: [facility] 11-18-2023 10:18-0500 Body mass index (BMI) [Ratio] 34.6 kg/m2 Dr. Jacob Jennings Work Phone: [facility] 11-18-2023 10:18-0500 Body temperature 99.4 [degF] Dr. Jacob Jennings Work Phone: [facility] 11-18-2023 10:18-0500 Body weight 94.[address] Jacob Jennings Work Phone: [facility] 11-18-2023 10:18-0500 Diastolic blood pressure 63 mm[Hg] Dr. Jacob Jennings Work Phone: [facility] 11-18-2023 10:18-0500 Heart rate 75 /min Dr. Jacob Jennings Work Phone: [facility] 11-18-2023 10:18-0500 Respiratory rate 20 /min Dr. Jacob Jennings Work Phone: [facility] 11-18-2023 10:18-0500 SaO2% (BldA) [Mass fraction] 94 % Dr. Jacob Jennings Work Phone: [facility] 11-18-2023 10:18-0500 Systolic blood pressure 127 mm[Hg] Dr. Jacob Jennings Work Phone: [facility] 10-28-2023 09:57-0500 Body mass index (BMI) [Ratio] 34.1 kg/m2 Dr. Jacob Jennings Work Phone: [facility] 10-28-2023 09:57-0500 Body temperature 98.9 [degF] Dr. Jacob Jennings Work Phone: [facility] 10-28-2023 09:57-0500 Body weight 93.[address] Jacob Jennings Work Phone: [facility] 10-28-2023 09:57-0500 Diastolic blood pressure 82 mm[Hg] Dr. Jacob Jennings Work Phone: [facility] 10-28-2023 09:57-0500 Heart rate 79 /min Dr. Jacob Jennings Work Phone: [facility] 10-28-2023 09:57-0500 Respiratory rate 18 /min Dr. Jacob Jennings Work Phone: [facility] 10-28-2023 09:57-0500 SaO2% (BldA) [Mass fraction] 95 % Dr. Jacob Jennings Work Phone: [facility] 10-28-2023 09:57-0500 Systolic blood pressure 160 mm[Hg] Dr. Jacob Jennings Work Phone: [facility] 10-18-2023 14:50-0500 Diastolic blood pressure 76 mm[Hg] Dr. Jacob Jennings Work Phone: [facility] 10-18-2023 14:50-0500 Heart rate 88 /min Dr. Jacob Jennings Work Phone: [facility] 10-18-2023 14:50-0500 Systolic blood pressure 164 mm[Hg] Dr. Jacob Jennings Work Phone: [facility] 10-18-2023 14:18-0500 Respiratory rate 20 /min Dr. Jacob Jennings Work Phone: [facility] 10-18-2023 14:18-0500 SaO2% (BldA) [Mass fraction] 95 % Dr. Jacob Jennings Work Phone: [facility] 10-18-2023 09:41-0500 Body height 165.[address] Jacob Jennings Work Phone: [facility] 10-18-2023 09:41-0500 Body temperature 97.5 [degF] Dr. Jacob Jennings Work Phone: [facility] 10-07-2023 09:39-0500 Body height 165.[address] Jacob Jennings Work Phone: [facility] 10-07-2023 09:39-0500 Body mass index (BMI) [Ratio] 34.9 kg/m2 Dr. Jacob Jennings Work Phone: [facility] 10-07-2023 09:39-0500 Body temperature 98.9 [degF] Dr. Jacob Jennings Work Phone: [facility] 10-07-2023 09:39-0500 Body weight 95.[address] Jacob Jennings Work Phone: [facility] 10-07-2023 09:39-0500 Diastolic blood pressure 66 mm[Hg] Dr. Jacob Jennings Work Phone: [facility] 10-07-2023 09:39-0500 Heart rate 75 /min Dr. Jacob Jennings Work Phone: [facility] 10-07-2023 09:39-0500 Respiratory rate 16 /min Dr. Jacob Jennings Work Phone: [facility] 10-07-2023 09:39-0500 SaO2% (BldA) [Mass fraction] 94 % Dr. Jacob Jennings Work Phone: [facility] 10-07-2023 09:39-0500 Systolic blood pressure 123 mm[Hg] Dr. Jacob Jennings Work Phone: [facility] 10-05-2023 09:44-0500 Diastolic blood pressure 63 mm[Hg] Dr. Jacob Jennings Work Phone: [facility] 10-05-2023 09:44-0500 Heart rate 71 /min Dr. Jacob Jennings Work Phone: [facility] 10-05-2023 09:44-0500 Respiratory rate 16 /min Dr. Jacob Jennings Work Phone: [facility] 10-05-2023 09:44-0500 Systolic blood pressure 125 mm[Hg] Dr. Jacob Jennings Work Phone: [facility] 10-05-2023 08:29-0500 Body mass index (BMI) [Ratio] 34.2 kg/m2 Dr. Jacob Jennings Work Phone: [facility] 10-05-2023 08:29-0500 Body temperature 98.1 [degF] Dr. Jacob Jennings Work Phone: [facility] 10-05-2023 08:29-0500 SaO2% (BldA) [Mass fraction] 94 % Dr. Jacob Jennings Work Phone: 0(053)352-833051 [place] [address] 09-16-2023 09:57-0500 Body mass index (BMI) [Ratio] 34.2 kg/m2 Dr. Jacob Jennings Work Phone: 7(006)600-542975 [address] 09-16-2023 09:57-0500 Body temperature 99.1 [degF] Dr. Jacob Jennings Work Phone: 5(196)848-360441 [place] [address] 09-16-2023 09:57-0500 Body weight 93.[address] Jacob Jennings Work Phone: 5(748)851-486451 [place] [address] 09-16-2023 09:57-0500 Diastolic blood pressure 62 mm[Hg] Dr. Jacob Jennings Work Phone: 2(974)935-679351 [place] [address] 09-16-2023 09:57-0500 Heart rate 81 /min Dr. Jacob Jennings Work Phone: 4(209)331-746351 [place] [address] 09-16-2023 09:57-0500 Respiratory rate 18 /min Dr. Jacob Jennings Work Phone: [facility] 09-16-2023 09:57-0500 Systolic blood pressure 114 mm[Hg] Dr. Jacob Jennings Work Phone: [facility] 09-02-2023 12:06-0400 Inhaled oxygen flow rate 4 L/min Dr. Jacob Jennings Work Phone: [facility] 09-02-2023 12:06-0400 SaO2% (BldA) [Mass fraction] 92 % Dr. Jacob Jennings Work Phone: [facility] 09-02-2023 12:05-0400 Heart rate 93 /min Dr. Jacob Jennings Work Phone: [facility] 09-02-2023 06:52-0400 Body height 165.[address] Jacob Jennings Work Phone: [facility] 09-02-2023 06:52-0400 Body mass index (BMI) [Ratio] 33.5 kg/m2 Dr. Jacob Jennings Work Phone: [facility] 09-02-2023 06:52-0400 Body temperature 97.9 [degF] Dr. Jacob Jennings Work Phone: [facility] 09-02-2023 06:52-0400 Body weight 91.[address] Jacob Jennings Work Phone: [facility] 09-02-2023 06:52-0400 Diastolic blood pressure 64 mm[Hg] Dr. Jacob Jennings Work Phone: [facility] 09-02-2023 06:52-0400 Respiratory rate 20 /min Dr. Jacob Jennings Work Phone: [facility] 09-02-2023 06:52-0400 Systolic blood pressure 107 mm[Hg] Dr. Jacob Jennings Work Phone: [facility] 08-26-2023 09:55-0400 Body mass index (BMI) [Ratio] 33.7 kg/m2 Dr. Jacob Jennings Work Phone: [facility] 08-26-2023 09:55-0400 Body temperature 98.3 [degF] Dr. Jacob Jennings Work Phone: [facility] 08-26-2023 09:55-0400 Body weight 92.[address] Jacob Jennings Work Phone: [facility] 08-26-2023 09:55-0400 Diastolic blood pressure 83 mm[Hg] Dr. Jacob Jennings Work Phone: [facility] 08-26-2023 09:55-0400 Heart rate 75 /min Dr. Jacob Jennings Work Phone: [facility] 08-26-2023 09:55-0400 Respiratory rate 18 /min Dr. Jacob Jennings Work Phone: [facility] 08-26-2023 09:55-0400 SaO2% (BldA) [Mass fraction] 92 % Dr. Jacob Jennings Work Phone: [facility] 08-26-2023 09:55-0400 Systolic blood pressure 118 mm[Hg] Dr. Jacob Jennings Work Phone: [facility] 08-21-2023 11:46-0400 Diastolic blood pressure 66 mm[Hg] Dr. Jacob Jennings Work Phone: [facility] 08-21-2023 11:46-0400 Systolic blood pressure 125 mm[Hg] Dr. Jacob Jennings Work Phone: [facility] 08-21-2023 11:38-0400 Body mass index (BMI) [Ratio] 33.3 kg/m2 Dr. Jacob Jennings Work Phone: [facility] 08-21-2023 11:38-0400 Body weight 90.[address] Jacob Jennings Work Phone: [facility] 08-21-2023 11:38-0400 Heart rate 94 /min Dr. Jacob Jennings Work Phone: [facility] 08-21-2023 11:38-0400 Respiratory rate 18 /min Dr. Jacob Jennings Work Phone: [facility] 08-21-2023 11:38-0400 SaO2% (BldA) [Mass fraction] 96 % Dr. Jacob Jennings Work Phone: [facility] 08-07-2023 10:140400 Body height 165.1 cm Francois Acevedo MD Work Phone: [facility] 08-07-2023 10:140400 Body weight 92.3 kg Francois Acevedo MD Work Phone: [facility] 08-07-2023 10:140400 Diastolic blood pressure 74 mm[Hg] Francois Acevedo MD Work Phone: [facility] 08-07-2023 10:140400 Heart rate 86 /min Francois Acevedo MD Work Phone: [facility] 08-07-2023 10:140400 Respiratory rate 20 /min Francois Acevedo MD Work Phone: [facility] 08-07-2023 10:140400 SaO2% (BldA) [Mass fraction] 97 % Francois Acevedo MD Work Phone: [facility] 08-07-2023 10:140400 Systolic blood pressure 148 mm[Hg] Francois Acevedo MD Work Phone: [facility] 08-05-2023 13:28-0400 Body temperature 97.7 [degF] Dr. Jacob Jennings Work Phone: [facility] 08-05-2023 13:28-0400 Diastolic blood pressure 61 mm[Hg] Dr. Jacob Jennings Work Phone: [facility] 08-05-2023 13:28-0400 Heart rate 78 /min Dr. Jacob Jennings Work Phone: [facility] 08-05-2023 13:28-0400 Respiratory rate 16 /min Dr. Jacob Jennings Work Phone: [facility] 08-05-2023 13:28-0400 SaO2% (BldA) [Mass fraction] 94 % Dr. Jacob Jennings Work Phone: [facility] 08-05-2023 13:28-0400 Systolic blood pressure 136 mm[Hg] Dr. Jacob Jennings Work Phone: [facility] 08-05-2023 11:06-0400 Body mass index (BMI) [Ratio] 32.9 kg/m2 Dr. Jacob Jennings Work Phone: [facility] 08-05-2023 11:06-0400 Body temperature 98.9 [degF] Dr. Jacob Jennings Work Phone: [facility] 08-05-2023 11:06-0400 Body weight 89.[address] Jacob Jennings Work Phone: [facility] 08-05-2023 11:06-0400 Diastolic blood pressure 69 mm[Hg] Dr. Jacob Jennings Work Phone: [facility] 08-05-2023 11:06-0400 Heart rate 80 /min Dr. Jacob Jennings Work Phone: [facility] 08-05-2023 11:06-0400 Respiratory rate 16 /min Dr. Jacob Jennings Work Phone: [facility] 08-05-2023 11:06-0400 SaO2% (BldA) [Mass fraction] 96 % Dr. Jacob Jennings Work Phone: [facility] 08-05-2023 11:06-0400 Systolic blood pressure 132 mm[Hg] Dr. Jacob Jennings Work Phone: [facility] 07-15-2023 11:01-0400 Body mass index (BMI) [Ratio] 32 kg/m2 Dr. Jacob Jennings Work Phone: [facility] 07-15-2023 11:01-0400 Body temperature 98.8 [degF] Dr. Jacob Jennings Work Phone: [facility] 07-15-2023 11:01-0400 Body weight 87.[address] Jacob Jennings Work Phone: [facility] 07-15-2023 11:01-0400 Diastolic blood pressure 71 mm[Hg] Dr. Jacob Jennings Work Phone: [facility] 07-15-2023 11:01-0400 Heart rate 75 /min Dr. Jacob Jennings Work Phone: [facility] 07-15-2023 11:01-0400 Respiratory rate 16 /min Dr. Jacob Jennings Work Phone: [facility] 07-15-2023 11:01-0400 SaO2% (BldA) [Mass fraction] 95 % Dr. Jacob Jennings Work Phone: [facility] 07-15-2023 11:01-0400 Systolic blood pressure 151 mm[Hg] Dr. Jacob Jennings Work Phone: [facility] 07-08-2023 13:32-0400 Body mass index (BMI) [Ratio] 33.1 kg/m2 Dr. Jacob Jennings Work Phone: [facility] 07-08-2023 13:32-0400 Body temperature 99.2 [degF] Dr. Jacob Jennings Work Phone: [facility] 07-08-2023 13:32-0400 Body weight 90.[address] Jacob Jennings Work Phone: [facility] 07-08-2023 13:32-0400 Diastolic blood pressure 67 mm[Hg] Dr. Jacob Jennings Work Phone: [facility] 07-08-2023 13:32-0400 Heart rate 79 /min Dr. Jacob Jennings Work Phone: [facility] 07-08-2023 13:32-0400 Respiratory rate 18 /min Dr. Jacob Jennings Work Phone: [facility] 07-08-2023 13:32-0400 SaO2% (BldA) [Mass fraction] 95 % Dr. Jacob Jennings Work Phone: [facility] 07-08-2023 13:32-0400 Systolic blood pressure 145 mm[Hg] Dr. Jacob Jennings Work Phone: [facility] 07-01-2023 09:34-0400 Diastolic blood pressure 48 mm[Hg] Dr. Jacob Jennings Work Phone: [facility] 07-01-2023 09:34-0400 Heart rate 70 /min Dr. Jacob Jennings Work Phone: [facility] 07-01-2023 09:34-0400 Systolic blood pressure 118 mm[Hg] Dr. Jacob Jennings Work Phone: [facility] 07-01-2023 08:53-0400 Body height 165.[address] Jacob Jennings Work Phone: [facility] 07-01-2023 08:53-0400 Body temperature 98.2 [degF] Dr. Jacob Jennings Work Phone: [facility] 07-01-2023 08:53-0400 Respiratory rate 16 /min Dr. Jacob Jennings Work Phone: [facility] 06-17-2023 15:34-0400 SaO2% (BldA) [Mass fraction] 95 % Dr. Jacob Jennings Work Phone: [facility] 06-17-2023 13:08-0400 Body mass index (BMI) [Ratio] 31.8 kg/m2 Dr. Jacob Jennings Work Phone: [facility] 06-17-2023 13:08-0400 Body temperature 99.7 [degF] Dr. Jacob Jennings Work Phone: [facility] 06-17-2023 13:08-0400 Body weight 86.[address] Jacob Jennings Work Phone: [facility] 06-17-2023 13:08-0400 Diastolic blood pressure 70 mm[Hg] Dr. Jacob Jennings Work Phone: [facility] 06-17-2023 13:08-0400 Heart rate 77 /min Dr. Jacob Jennings Work Phone: [facility] 06-17-2023 13:08-0400 Respiratory rate 18 /min Dr. Jacob Jennings Work Phone: [facility] 06-17-2023 13:08-0400 SaO2% (BldA) [Mass fraction] 93 % Dr. Jacob Jennings Work Phone: [facility] 06-17-2023 13:08-0400 Systolic blood pressure 158 mm[Hg] Dr. Jacob Jennings Work Phone: [facility] 06-09-2023 11:35-0400 Body height 165.1 cm Francois Acevedo MD Work Phone: [facility] 06-09-2023 11:35-0400 Body weight 84.1 kg Francois Acevedo MD Work Phone: [facility] 06-09-2023 11:35-0400 Diastolic blood pressure 64 mm[Hg] Francois Acevedo MD Work Phone: [facility] 06-09-2023 11:35-0400 Heart rate 85 /min Francois Acevedo MD Work Phone: [facility] 06-09-2023 11:35-0400 SaO2% (BldA) [Mass fraction] 94 % Francois Acevedo MD Work Phone: [facility] 06-09-2023 11:35-0400 Systolic blood pressure 132 mm[Hg] Francois Acevedo MD Work Phone: [facility] 05-27-2023 09:22-0400 Body mass index (BMI) [Ratio] 30.5 kg/m2 Dr. Jacob Jennings Work Phone: [facility] 05-27-2023 09:22-0400 Body temperature 98.6 [degF] Dr. Jacob Jennings Work Phone: [facility] 05-27-2023 09:22-0400 Body weight 83.[address] Jacob Jennings Work Phone: [facility] 05-27-2023 09:22-0400 Diastolic blood pressure 65 mm[Hg] Dr. Jacob Jennings Work Phone: [facility] 05-27-2023 09:22-0400 Heart rate 85 /min Dr. Jacob Jennings Work Phone: [facility] 05-27-2023 09:22-0400 Respiratory rate 18 /min Dr. Jacob Jennings Work Phone: [facility] 05-27-2023 09:22-0400 SaO2% (BldA) [Mass fraction] 96 % Dr. Jacob Jennings Work Phone: [facility] 05-27-2023 09:22-0400 Systolic blood pressure 115 mm[Hg] Dr. Jacob Jennings Work Phone: [facility] 05-21-2023 08:19-0400 Body mass index (BMI) [Ratio] 29.9 kg/m2 Dr. Jacob Jennings Work Phone: [facility] 05-21-2023 08:19-0400 Body temperature 98.7 [degF] Dr. Jacob Jennings Work Phone: [facility] 05-21-2023 08:19-0400 Body weight 81.[address] Jacob Jennings Work Phone: [facility] 05-21-2023 08:19-0400 Diastolic blood pressure 46 mm[Hg] Dr. Jacob Jennings Work Phone: [facility] 05-21-2023 08:19-0400 Heart rate 94 /min Dr. Jacob Jennings Work Phone: [facility] 05-21-2023 08:19-0400 Respiratory rate 20 /min Dr. Jacob Jennings Work Phone: [facility] 05-21-2023 08:19-0400 SaO2% (BldA) [Mass fraction] 90 % Dr. Jacob Jennings Work Phone: [facility] 05-21-2023 08:19-0400 Systolic blood pressure 94 mm[Hg] Dr. Jacob Jennings Work Phone: [facility] 05-20-2023 14:02-0400 Body height 165.1 cm Pineda Fields MD Work Phone: [facility] 05-20-2023 14:02-0400 Body mass index (BMI) [Ratio] 30.79 kg/m2 Pineda Fields MD Work Phone: [facility] 05-20-2023 14:02-0400 Body temperature 98.29 [degF] Pineda Fields MD Work Phone: [facility] 05-20-2023 14:02-0400 Body weight 83.92 kg Pineda Fields MD Work Phone: [facility] 05-20-2023 14:02-0400 Diastolic blood pressure 60 mm[Hg] Pineda Fields MD Work Phone: [facility] 05-20-2023 14:02-0400 Heart rate 87 /min Pineda Fields MD Work Phone: [facility] 05-20-2023 14:02-0400 Systolic blood pressure 119 mm[Hg] Pineda Fields MD Work Phone: [facility] 05-19-2023 08:39-0400 Body mass index (BMI) [Ratio] 29.9 kg/m2 Dr. Jacob Jennings Work Phone: [facility] 05-19-2023 08:39-0400 Body temperature 99 [degF] Dr. Jacob Jennings Work Phone: [facility] 05-19-2023 08:39-0400 Body weight 81.[address] Jacob Jennings Work Phone: [facility] 05-19-2023 08:39-0400 Diastolic blood pressure 59 mm[Hg] Dr. Jacob Jennings Work Phone: [facility] 05-19-2023 08:39-0400 Heart rate 87 /min Dr. Jacob Jennings Work Phone: [facility] 05-19-2023 08:39-0400 Respiratory rate 20 /min Dr. Jacob Jennings Work Phone: [facility] 05-19-2023 08:39-0400 SaO2% (BldA) [Mass fraction] 90 % Dr. Jacob Jennings Work Phone: [facility] 05-19-2023 08:39-0400 Systolic blood pressure 95 mm[Hg] Dr. Jacob Jennings Work Phone: [facility] 05-06-2023 14:19-0400 Diastolic blood pressure 64 mm[Hg] Dr. Jacob Jennings Work Phone: [facility] 05-06-2023 14:19-0400 Heart rate 87 /min Dr. Jacob Jennings Work Phone: [facility] 05-06-2023 14:19-0400 Respiratory rate 16 /min Dr. Jacob Jennings Work Phone: [facility] 05-06-2023 14:19-0400 SaO2% (BldA) [Mass fraction] 93 % Dr. Jacob Jennings Work Phone: [facility] 05-06-2023 14:19-0400 Systolic blood pressure 126 mm[Hg] Dr. Jacob Jennings Work Phone: [facility] 05-06-2023 12:02-0400 Inhaled oxygen flow rate 2 L/min Dr. Jacob Jennings Work Phone: [facility] 05-06-2023 09:04-0400 Body temperature 97.7 [degF] Dr. Jacob Jennings Work Phone: [facility] 05-03-2023 10:37-0400 Body height 165.[address] Jacob Jennings Work Phone: [facility] 05-03-2023 10:37-0400 Body weight 74.[address] Jacob Jennings Work Phone: [facility] 05-02-2023 16:56-0400 Body mass index (BMI) [Ratio] 29.8 kg/m2 Dr. Jacob Jennings Work Phone: [facility] 05-02-2023 15:51-0400 Body temperature 96.7 [degF] Dr. Jacob Jennings Work Phone: [facility] 05-02-2023 15:51-0400 Diastolic blood pressure 61 mm[Hg] Dr. Jacob Jennings Work Phone: [facility] 05-02-2023 15:51-0400 Heart rate 73 /min Dr. Jacob Jennings Work Phone: [facility] 05-02-2023 15:51-0400 Inhaled oxygen flow rate 3 L/min Dr. Jacob Jennings Work Phone: [facility] 05-02-2023 15:51-0400 Respiratory rate 20 /min Dr. Jacob Jennings Work Phone: [facility] 05-02-2023 15:51-0400 SaO2% (BldA) [Mass fraction] 91 % Dr. Jacob Jennings Work Phone: [facility] 05-02-2023 15:51-0400 Systolic blood pressure 122 mm[Hg] Dr. Jacob Jennings Work Phone: [facility] 05-02-2023 10:42-0400 Body height 165.[address] Jacob Jennings Work Phone: [facility] 05-02-2023 10:42-0400 Body mass index (BMI) [Ratio] 30.7 kg/m2 Dr. Jacob Jennings Work Phone: [facility] 05-02-2023 10:42-0400 Body weight 83.[address] Jacob Jennings Work Phone: [facility] 04-28-2023 10:27-0400 Body mass index (BMI) [Ratio] 31.1 kg/m2 Dr. Jacob Jennings Work Phone: [facility] 04-28-2023 10:27-0400 Body weight 84.[address] Jacob Jennings Work Phone: [facility] 04-28-2023 09:46-0400 Body mass index (BMI) [Ratio] 31.1 kg/m2 Dr. Jacob Jennings Work Phone: [facility] 04-28-2023 09:46-0400 Body temperature 98.2 [degF] Dr. Jacob Jennings Work Phone: [facility] 04-28-2023 09:46-0400 Body weight 84.[address] Jacob Jennings Work Phone: [facility] 04-28-2023 09:46-0400 Diastolic blood pressure 72 mm[Hg] Dr. Jacob Jennings Work Phone: [facility] 04-28-2023 09:46-0400 Heart rate 80 /min Dr. Jacob Jennings Work Phone: [facility] 04-28-2023 09:46-0400 Respiratory rate 18 /min Dr. Jacob Jennings Work Phone: [facility] 04-28-2023 09:46-0400 SaO2% (BldA) [Mass fraction] 94 % Dr. Jacob Jennings Work Phone: [facility] 04-28-2023 09:46-0400 Systolic blood pressure 121 mm[Hg] Dr. Jacob Jennings Work Phone: [facility] 04-27-2023 12:57-0400 Body mass index (BMI) [Ratio] 30.9 kg/m2 Dr. Jacob Jennings Work Phone: [facility] 04-27-2023 12:57-0400 Body temperature 97.3 [degF] Dr. Jacob Jennings Work Phone: [facility] 04-27-2023 12:57-0400 Body weight 84.[address] Jacob Jennings Work Phone: [facility] 04-27-2023 12:57-0400 Diastolic blood pressure 68 mm[Hg] Dr. Jacob Jennings Work Phone: [facility] 04-27-2023 12:57-0400 Heart rate 93 /min Dr. Jacob Jennings Work Phone: [facility] 04-27-2023 12:57-0400 Respiratory rate 18 /min Dr. Jacob Jennings Work Phone: [facility] 04-27-2023 12:57-0400 SaO2% (BldA) [Mass fraction] 94 % Dr. Jacob Jennings Work Phone: [facility] 04-27-2023 12:57-0400 Systolic blood pressure 142 mm[Hg] Dr. Jacob Jennings Work Phone: [facility] 04-08-2023 12:42-0400 Diastolic blood pressure 53 mm[Hg] Dr. Jacob Jennings Work Phone: [facility] 04-08-2023 12:42-0400 Heart rate 69 /min Dr. Jacob Jennings Work Phone: [facility] 04-08-2023 12:42-0400 Respiratory rate 16 /min Dr. Jacob Jennings Work Phone: [facility] 04-08-2023 12:42-0400 Systolic blood pressure 127 mm[Hg] Dr. Jacob Jennings Work Phone: [facility] 04-08-2023 08:55-0400 Body mass index (BMI) [Ratio] 31.4 kg/m2 Dr. Jacob Jennings Work Phone: [facility] 04-08-2023 08:55-0400 Body temperature 98 [degF] Dr. Jacob Jennings Work Phone: [facility] 04-08-2023 08:55-0400 Body weight 85.[address] Jacob Jennings Work Phone: [facility] 04-08-2023 08:55-0400 Diastolic blood pressure 70 mm[Hg] Dr. Jacob Jennings Work Phone: [id number] [place] [id number] 04-08-2023 08:55-0400 Heart rate 68 /min Dr. Jacob Jennings Work Phone: [facility] 04-08-2023 08:55-0400 Respiratory rate 18 /min Dr. Jacob Jennings Work Phone: [facility] 04-08-2023 08:55-0400 SaO2% (BldA) [Mass fraction] 96 % Dr. Jacob Jennings Work Phone: [facility] 04-08-2023 08:55-0400 Systolic blood pressure 131 mm[Hg] Dr. Jacob Jennings Work Phone: [facility] 04-01-2023 09:38-0400 Body mass index (BMI) [Ratio] 30.7 kg/m2 Dr. Jacob Jennings Work Phone: [facility] 04-01-2023 09:38-0400 Body temperature 97.5 [degF] Dr. Jacob Jennings Work Phone: [facility] 04-01-2023 09:38-0400 Body weight 83.[address] Jacob Jennings Work Phone: [facility] 04-01-2023 09:38-0400 Diastolic blood pressure 64 mm[Hg] Dr. Jacob Jennings Work Phone: [facility] 04-01-2023 09:38-0400 Heart rate 79 /min Dr. Jacob Jennings Work Phone: [facility] 04-01-2023 09:38-0400 Respiratory rate 18 /min Dr. Jacob Jennings Work Phone: [facility] 04-01-2023 09:38-0400 SaO2% (BldA) [Mass fraction] 97 % Dr. Jacob Jennings Work Phone: [facility] 04-01-2023 09:38-0400 Systolic blood pressure 128 mm[Hg] Dr. Jacob Jennings Work Phone: [facility] 03-24-2023 13:04-0400 Body mass index (BMI) [Ratio] 32.6 kg/m2 Dr. Jacob Jennings Work Phone: [facility] 03-24-2023 13:04-0400 Body temperature 97.1 [degF] Dr. Jacob Jennings Work Phone: [facility] 03-24-2023 13:04-0400 Body weight 88.[address] Jacob Jennings Work Phone: [facility] 03-24-2023 13:04-0400 Diastolic blood pressure 78 mm[Hg] Dr. Jacob Jennings Work Phone: [facility] 03-24-2023 13:04-0400 Heart rate 74 /min Dr. Jacob Jennings Work Phone: [facility] 03-24-2023 13:04-0400 Respiratory rate 16 /min Dr. Jacob Jennings Work Phone: [facility] 03-24-2023 13:04-0400 SaO2% (BldA) [Mass fraction] 96 % Dr. Jacob Jennings Work Phone: [facility] 03-24-2023 13:04-0400 Systolic blood pressure 134 mm[Hg] Dr. Jacob Jennings Work Phone: [facility] 03-19-2023 20:45-0400 Diastolic blood pressure 60 mm[Hg] Dr. Jacob Jennings Work Phone: [facility] 03-19-2023 20:45-0400 Heart rate 68 /min Dr. Jacob Jennings Work Phone: [facility] 03-19-2023 20:45-0400 Respiratory rate 15 /min Dr. Jacob Jennings Work Phone: [facility] 03-19-2023 20:45-0400 SaO2% (BldA) [Mass fraction] 97 % Dr. Jacob Jennings Work Phone: [facility] 03-19-2023 20:45-0400 Systolic blood pressure 118 mm[Hg] Dr. Jacob Jennings Work Phone: [facility] 03-19-2023 16:07-0400 Body mass index (BMI) [Ratio] 32.7 kg/m2 Dr. Jacob Jennings Work Phone: [facility] 03-19-2023 16:07-0400 Body temperature 99.4 [degF] Dr. Jacob Jennings Work Phone: [facility] 03-19-2023 16:07-0400 Body weight 89.[address] Jacob Jennings Work Phone: [facility] 03-17-2023 10:02-0400 Body height 165.[address] Jacob Jennings Work Phone: [facility] 03-17-2023 10:02-0400 Body mass index (BMI) [Ratio] 32.6 kg/m2 Dr. Jacob Jennings Work Phone: [facility] 03-17-2023 10:02-0400 Body temperature 97.2 [degF] Dr. Jacob Jennings Work Phone: [facility] 03-17-2023 10:02-0400 Body weight 89.[address] Jacob Jennings Work Phone: [facility] 03-17-2023 10:02-0400 Diastolic blood pressure 57 mm[Hg] Dr. Jacob Jennings Work Phone: [facility] 03-17-2023 10:02-0400 Heart rate 79 /min Dr. Jacob Jennings Work Phone: [facility] 03-17-2023 10:02-0400 Respiratory rate 20 /min Dr. Jacob Jennings Work Phone: [facility] 03-17-2023 10:02-0400 SaO2% (BldA) [Mass fraction] 94 % Dr. Jacob Jennings Work Phone: [facility] 03-17-2023 10:02-0400 Systolic blood pressure 114 mm[Hg] Dr. Jacob Jennings Work Phone: [facility] 03-10-2023 10:14-0400 Body mass index (BMI) [Ratio] 32.8 kg/m2 Dr. Jacob Jennings Work Phone: [facility] 03-10-2023 10:14-0400 Body weight 89.[address] Jacob Jennings Work Phone: [facility] 03-10-2023 09:50-0400 Body mass index (BMI) [Ratio] 32.8 kg/m2 Dr. Jacob Jennings Work Phone: [facility] 03-10-2023 09:50-0400 Body temperature 98.5 [degF] Dr. Jacob Jennings Work Phone: [facility] 03-10-2023 09:50-0400 Body weight 89.[address] Jacob Jennings Work Phone: [facility] 03-10-2023 09:50-0400 Diastolic blood pressure 63 mm[Hg] Dr. Jacob Jennings Work Phone: [facility] 03-10-2023 09:50-0400 Heart rate 76 /min Dr. Jacob Jennings Work Phone: [facility] 03-10-2023 09:50-0400 Respiratory rate 16 /min Dr. Jacob Jennings Work Phone: [facility] 03-10-2023 09:50-0400 SaO2% (BldA) [Mass fraction] 94 % Dr. Jacob Jennings Work Phone: [facility] 03-10-2023 09:50-0400 Systolic blood pressure 101 mm[Hg] Dr. Jacob Jennings Work Phone: [facility] 02-19-2023 10:17-0400 Diastolic blood pressure 57 mm[Hg] Dr. Jacob Jennings Work Phone: [facility] 02-19-2023 10:17-0400 Heart rate 73 /min Dr. Jacob Jennings Work Phone: [facility] 02-19-2023 10:17-0400 Respiratory rate 16 /min Dr. Jacob Jennings Work Phone: [facility] 02-19-2023 10:17-0400 SaO2% (BldA) [Mass fraction] 96 % Dr. Jacob Jennings Work Phone: [facility] 02-19-2023 10:17-0400 Systolic blood pressure 120 mm[Hg] Dr. Jacob Jennings Work Phone: [facility] 02-17-2023 09:33-0400 Body mass index (BMI) [Ratio] 34 kg/m2 Dr. Jacob Jennings Work Phone: [facility] 02-17-2023 09:33-0400 Body temperature 98.6 [degF] Dr. Jacob Jennings Work Phone: [facility] 02-17-2023 09:33-0400 Body weight 92.[address] Jacob Jennings Work Phone: [facility] 02-17-2023 09:33-0400 Diastolic blood pressure 56 mm[Hg] Dr. Jacob Jennings Work Phone: [facility] 02-17-2023 09:33-0400 Heart rate 76 /min Dr. Jacob Jennings Work Phone: [facility] 02-17-2023 09:33-0400 Respiratory rate 18 /min Dr. Jacob Jennings Work Phone: [facility] 02-17-2023 09:33-0400 SaO2% (BldA) [Mass fraction] 96 % Dr. Jacob Jennings Work Phone: [facility] 02-17-2023 09:33-0400 Systolic blood pressure 106 mm[Hg] Dr. Jacob Jennings Work Phone: [facility] 01-27-2023 10:08-0400 Body mass index (BMI) [Ratio] 32.5 kg/m2 Dr. Jacob Jennings Work Phone: [facility] 01-27-2023 10:08-0400 Body temperature 98.5 [degF] Dr. Jacob Jennings Work Phone: [facility] 01-27-2023 10:08-0400 Body weight 89.[address] Jacob Jennings Work Phone: [facility] 01-27-2023 10:08-0400 Diastolic blood pressure 55 mm[Hg] Dr. Jacob Jennings Work Phone: [facility] 01-27-2023 10:08-0400 Heart rate 79 /min Dr. Jacob Jennings Work Phone: [facility] 01-27-2023 10:08-0400 Respiratory rate 16 /min Dr. Jacob Jennings Work Phone: [facility] 01-27-2023 10:08-0400 SaO2% (BldA) [Mass fraction] 96 % Dr. Jacob Jennings Work Phone: [facility] 01-27-2023 10:08-0400 Systolic blood pressure 107 mm[Hg] Dr. Jacob Jennings Work Phone: [facility] 01-23-2023 10:49-0400 Body height 166.[address] Jacob Jennings Work Phone: [facility] 01-23-2023 10:47-0400 Body mass index (BMI) [Ratio] 32.5 kg/m2 Dr. Jacob Jennings Work Phone: [facility] 01-23-2023 10:47-0400 Body temperature 97 [degF] Dr. Jacob Jennings Work Phone: [facility] 01-23-2023 10:47-0400 Body weight 89.[address] Jacob Jennings Work Phone: [facility] 01-23-2023 10:47-0400 Diastolic blood pressure 54 mm[Hg] Dr. Jacob Jennings Work Phone: [facility] 01-23-2023 10:47-0400 Heart rate 95 /min Dr. Jacob Jennings Work Phone: [facility] 01-23-2023 10:47-0400 SaO2% (BldA) [Mass fraction] 95 % Dr. Jacob Jennings Work Phone: [facility] 01-23-2023 10:47-0400 Systolic blood pressure 109 mm[Hg] Dr. Jacob Jennings Work Phone: [facility] 01-23-2023 08:39-0400 Body mass index (BMI) [Ratio] 32.5 kg/m2 Dr. Jacob Jennings Work Phone: [facility] 01-23-2023 08:39-0400 Body temperature 97.4 [degF] Dr. Jacob Jennings Work Phone: [facility] 01-23-2023 08:39-0400 Body weight 89.[address] Jacob Jennings Work Phone: [facility] 01-23-2023 08:39-0400 Diastolic blood pressure 56 mm[Hg] Dr. Jacob Jennings Work Phone: [facility] 01-23-2023 08:39-0400 Heart rate 85 /min Dr. Jacob Jennings Work Phone: [facility] 01-23-2023 08:39-0400 Respiratory rate 20 /min Dr. Jacob Jennings Work Phone: [facility] 01-23-2023 08:39-0400 SaO2% (BldA) [Mass fraction] 96 % Dr. Jacob Jennings Work Phone: [facility] 01-23-2023 08:39-0400 Systolic blood pressure 109 mm[Hg] Dr. Jacob Jennings Work Phone: [facility] 01-06-2023 10:09-0500 Body height 166.[address] Jacob Jennings Work Phone: [facility] 01-06-2023 10:09-0500 Body mass index (BMI) [Ratio] 31.5 kg/m2 Dr. Jacob Jennings Work Phone: [facility] 01-06-2023 10:09-0500 Body weight 87.[address] Jacob Jennings Work Phone: [facility] 01-06-2023 09:30-0500 Body mass index (BMI) [Ratio] 31.5 kg/m2 Dr. Jacob Jennings Work Phone: [facility] 01-06-2023 09:30-0500 Body temperature 97.8 [degF] Dr. Jacob Jennings Work Phone: [facility] 01-06-2023 09:30-0500 Body weight 87.[address] Jacob Jennings Work Phone: [facility] 01-06-2023 09:30-0500 Diastolic blood pressure 72 mm[Hg] Dr. Jacob Jennings Work Phone: [facility] 01-06-2023 09:30-0500 Heart rate 79 /min Dr. Jacob Jennings Work Phone: [facility] 01-06-2023 09:30-0500 Respiratory rate 18 /min Dr. Jacob Jennings Work Phone: [facility] 01-06-2023 09:30-0500 SaO2% (BldA) [Mass fraction] 96 % Dr. Jacob Jennings Work Phone: [facility] 01-06-2023 09:30-0500 Systolic blood pressure 136 mm[Hg] Dr. Jacob Jennings Work Phone: [facility] 01-05-2023 10:08-0500 Body mass index (BMI) [Ratio] 32.1 kg/m2 Dr. Jacob Jennings Work Phone: [facility] 01-05-2023 10:08-0500 Body temperature 97.4 [degF] Dr. Jacob Jennings Work Phone: [facility] 01-05-2023 10:08-0500 Body weight 87.[address] Jacob Jennings Work Phone: [facility] 01-05-2023 10:08-0500 Diastolic blood pressure 71 mm[Hg] Dr. Jacob Jennings Work Phone: [facility] 01-05-2023 10:08-0500 Heart rate 96 /min Dr. Jacob Jennings Work Phone: [facility] 01-05-2023 10:08-0500 Respiratory rate 18 /min Dr. Jacob Jennings Work Phone: [facility] 01-05-2023 10:08-0500 SaO2% (BldA) [Mass fraction] 97 % Dr. Jacob Jennings Work Phone: [facility] 01-05-2023 10:08-0500 Systolic blood pressure 159 mm[Hg] Dr. Jacob Jennings Work Phone: [facility] 12-31-2022 07:14-0500 Body height 165.1 cm Jacob Jennings Work Phone: [facility] 12-31-2022 07:14-0500 Body mass index (BMI) [Ratio] 31.72 kg/m2 Jacob Jennings DO Work Phone: [facility] 12-31-2022 07:14-0500 Body temperature 98.6 [degF] Jacob Jennings DO Work Phone: [facility] 12-31-2022 07:14-0500 Body weight 86.46 kg Jacob Jennings DO Work Phone: [facility] 12-31-2022 07:14-0500 Diastolic blood pressure 61 mm[Hg] Jacob Jennings DO Work Phone: [facility] 12-31-2022 07:14-0500 Heart rate 89 /min Jacob Jennings DO Work Phone: [facility] 12-31-2022 07:14-0500 SaO2% (BldA) [Mass fraction] 97 % Jacob Jennings DO Work Phone: [facility] 12-31-2022 07:14-0500 Systolic blood pressure 128 mm[Hg] Jacob Jennings DO Work Phone: [facility] 12-29-2022 12:30-0500 Body height 166.[address] Jacob Jennings Work Phone: [facility] 12-29-2022 12:30-0500 Body weight 88.[address] Jacob Jennings Work Phone: [facility] 12-29-2022 12:30-0500 Heart rate 95 /min Dr. Jacob Jennings Work Phone: [facility] 12-29-2022 12:30-0500 SaO2% (BldA) [Mass fraction] 97 % Dr. Jacob Jennings Work Phone: [facility] 12-16-2022 10:13-0500 Body mass index (BMI) [Ratio] 31.4 kg/m2 Dr. Jacob Jennings Work Phone: [facility] 12-16-2022 10:13-0500 Body weight 88.[address] Jacob Jennings Work Phone: [facility] 12-16-2022 08:51-0500 Body mass index (BMI) [Ratio] 31.4 kg/m2 Dr. Jacob Jennings Work Phone: [facility] 12-16-2022 08:51-0500 Body temperature 98 [degF] Dr. Jacob Jennings Work Phone: [facility] 12-16-2022 08:51-0500 Body weight 88.[address] Jacob Jennings Work Phone: [facility] 12-16-2022 08:51-0500 Diastolic blood pressure 67 mm[Hg] Dr. Jacob Jennings Work Phone: [facility] 12-16-2022 08:51-0500 Heart rate 74 /min Dr. Jacob Jennings Work Phone: [facility] 12-16-2022 08:51-0500 Respiratory rate 20 /min Dr. Jacob Jennings Work Phone: [facility] 12-16-2022 08:51-0500 SaO2% (BldA) [Mass fraction] 96 % Dr. Jacob Jennings Work Phone: [facility] 12-16-2022 08:51-0500 Systolic blood pressure 132 mm[Hg] Dr. Jacob Jennings Work Phone: [facility] 11-25-2022 11:42-0500 Diastolic blood pressure 63 mm[Hg] Dr. Jacob Jennings Work Phone: [facility] 11-25-2022 11:42-0500 Heart rate 83 /min Dr. Jacob Jennings Work Phone: [facility] 11-25-2022 11:42-0500 SaO2% (BldA) [Mass fraction] 93 % Dr. Jacob Jennings Work Phone: [facility] 11-25-2022 11:42-0500 Systolic blood pressure 123 mm[Hg] Dr. Jacob Jennings Work Phone: [facility] 11-25-2022 09:29-0500 Body mass index (BMI) [Ratio] 31.1 kg/m2 Dr. Jacob Jennings Work Phone: [facility] 11-25-2022 09:29-0500 Body temperature 98.5 [degF] Dr. Jacob Jennings Work Phone: [facility] 11-25-2022 09:29-0500 Body weight 87.[address] Jacob Jennings Work Phone: [facility] 11-25-2022 09:29-0500 Diastolic blood pressure 63 mm[Hg] Dr. Jacob Jennings Work Phone: [facility] 11-25-2022 09:29-0500 Heart rate 87 /min Dr. Jacob Jennings Work Phone: [facility] 11-25-2022 09:29-0500 Respiratory rate 18 /min Dr. Jacob Jennings Work Phone: [facility] 11-25-2022 09:29-0500 SaO2% (BldA) [Mass fraction] 94 % Dr. Jacob Jennings Work Phone: [facility] 11-25-2022 09:29-0500 Systolic blood pressure 118 mm[Hg] Dr. Jacob Jennings Work Phone: [facility] 11-24-2022 06:37-0500 Body mass index (BMI) [Ratio] 31.1 kg/m2 Dr. Jacob Jennings Work Phone: [facility] 11-24-2022 06:37-0500 Body temperature 97.6 [degF] Dr. Jacob Jennings Work Phone: [facility] 11-24-2022 06:37-0500 Body weight 87.[address] Jacob Jennings Work Phone: [facility] 11-24-2022 06:37-0500 Diastolic blood pressure 68 mm[Hg] Dr. Jacob Jennings Work Phone: [facility] 11-24-2022 06:37-0500 Heart rate 103 /min Dr. Jacob Jennings Work Phone: [facility] 11-24-2022 06:37-0500 Respiratory rate 18 /min Dr. Jacob Jennings Work Phone: [facility] 11-24-2022 06:37-0500 SaO2% (BldA) [Mass fraction] 92 % Dr. Jacob Jennings Work Phone: [facility] 11-24-2022 06:37-0500 Systolic blood pressure 126 mm[Hg] Dr. Jacob Jennings Work Phone: [facility] 11-21-2022 14:40-0500 Body temperature 99.3 [degF] Dr. Jacob Jennings Work Phone: [facility] 11-21-2022 14:40-0500 Diastolic blood pressure 80 mm[Hg] Dr. Jacob Jennings Work Phone: [facility] 11-21-2022 14:40-0500 Heart rate 82 /min Dr. Jacob Jennings Work Phone: [facility] 11-21-2022 14:40-0500 Respiratory rate 16 /min Dr. Jacob Jennings Work Phone: [facility] 11-21-2022 14:40-0500 SaO2% (BldA) [Mass fraction] 97 % Dr. Jacob Jennings Work Phone: [facility] 11-21-2022 14:40-0500 Systolic blood pressure 123 mm[Hg] Dr. Jacob Jennings Work Phone: [facility] 11-21-2022 14:17-0500 Respiratory rate 20 /min Dr. Jacob Jennings Work Phone: [facility] Work Phone: 11-21-2022 09:00-0500 Body temperature 99.4 [degF] Dr. Jacob Jennings Work Phone: [facility] Work Phone: 11-21-2022 09:00-0500 Diastolic blood pressure 69 mm[Hg] Dr. Jacob Jennings Work Phone: [facility] Work Phone: 11-21-2022 09:00-0500 Heart rate 98 /min Dr. Jacob Jennings Work Phone: [facility] Work Phone: 11-21-2022 09:00-0500 SaO2% (BldA) [Mass fraction] 95 % Dr. Jacob Jennings Work Phone: [facility] Work Phone: 11-21-2022 09:00-0500 Systolic blood pressure 127 mm[Hg] Dr. Jacob Jennings Work Phone: [facility] Work Phone: 11-21-2022 08:15-0500 Inhaled oxygen flow rate 2 L/min Dr. Jacob Jennings Work Phone: [facility] 11-19-2022 21:19-0500 Body height 167.[address] Jacob Jennings Work Phone: [facility] Work Phone: 11-19-2022 21:19-0500 Body mass index (BMI) [Ratio] 30.7 kg/m2 Dr. Jacob Jennings Work Phone: [facility] 11-19-2022 21:19-0500 Body weight 86.[address] Jacob Jennings Work Phone: [facility] 11-19-2022 21:06-0500 Body temperature 97.4 [degF] Dr. Jacob Jennings Work Phone: [facility] Work Phone: 11-19-2022 21:06-0500 Diastolic blood pressure 61 mm[Hg] Dr. Jacob Jennings Work Phone: [facility] Work Phone: 11-19-2022 21:06-0500 Heart rate 66 /min Dr. Jacob Jennings Work Phone: [facility] Work Phone: 11-19-2022 21:06-0500 Respiratory rate 16 /min Dr. Jacob Jennings Work Phone: [facility] Work Phone: 11-19-2022 21:06-0500 SaO2% (BldA) [Mass fraction] 98 % Dr. Jacob Jennings Work Phone: [facility] Work Phone: 11-19-2022 21:06-0500 Systolic blood pressure 130 mm[Hg] Dr. Jacob Jennings Work Phone: [facility] Work Phone: 11-19-2022 18:52-0500 Inhaled oxygen flow rate 2 L/min Dr. Jacob Jennings Work Phone: [facility] Work Phone: 11-19-2022 16:32-0500 Body height 167.[address] Jacob Jennings Work Phone: [facility] Work Phone: 11-19-2022 16:32-0500 Body mass index (BMI) [Ratio] 31.4 kg/m2 Dr. Jacob Jennings Work Phone: [facility] Work Phone: 11-19-2022 16:32-0500 Body weight 88.[address] Jacob Jennings Work Phone: [facility] Work Phone: 11-17-2022 12:15-0500 SaO2% (BldA) [Mass fraction] 91 % Gaby Tokie LAB CLERK - [employer] Work Phone: [facility] 11-17-2022 11:42-0500 Body height 165.1 cm Gaby Tokie LAB CLERK - [employer] Work Phone: [facility] 11-17-2022 11:42-0500 Body mass index (BMI) [Ratio] 32.78 kg/m2 Gaby Tokie LAB CLERK [employer] Work Phone: [facility] 11-17-2022 11:42-0500 Body temperature 99.9 [degF] Gaby Tokie LAB CLERK [employer] Work Phone: [facility] 11-17-2022 11:42-0500 Body weight 89.36 kg Gaby Tokie LAB CLERK [employer] Work Phone: [facility] 11-17-2022 11:42-0500 Diastolic blood pressure 78 mm[Hg] Gaby Tokie LAB CLERK - [employer] Work Phone: [facility] 11-17-2022 11:42-0500 Heart rate 92 /min Gaby Tokie LAB CLERK - [employer] Work Phone: [facility] 11-17-2022 11:42-0500 Systolic blood pressure 138 mm[Hg] Gaby Tokie LAB CLERK [employer] Work Phone: [facility] 11-13-2022 11:27-0500 Body mass index (BMI) [Ratio] 31.6 kg/m2 Dr. Jacob Jennings Work Phone: [facility] 11-13-2022 11:27-0500 Body temperature 98.3 [degF] Dr. Jacob Jennings Work Phone: [facility] 11-13-2022 11:27-0500 Body weight 88.[address] Jacob Jennings Work Phone: [facility] 11-13-2022 11:27-0500 Diastolic blood pressure 71 mm[Hg] Dr. Jacob Jennings Work Phone: [facility] 11-13-2022 11:27-0500 Heart rate 80 /min Dr. Jacob Jennings Work Phone: [facility] 11-13-2022 11:27-0500 Respiratory rate 16 /min Dr. Jacob Jennings Work Phone: [facility] 11-13-2022 11:27-0500 SaO2% (BldA) [Mass fraction] 92 % Dr. Jacob Jennings Work Phone: [facility] 11-13-2022 11:27-0500 Systolic blood pressure 151 mm[Hg] Dr. Jacob Jennings Work Phone: [facility] 11-04-2022 12:53-0500 Body mass index (BMI) [Ratio] 31.8 kg/m2 Dr. Jacob Jennings Work Phone: [facility] Work Phone: 11-04-2022 12:53-0500 Body weight 89.[address] Jacob Jennings Work Phone: [facility] Work Phone: 11-04-2022 12:03-0500 Body mass index (BMI) [Ratio] 31.8 kg/m2 Dr. Jacob Jennings Work Phone: [facility] 11-04-2022 12:03-0500 Body temperature 98.1 [degF] Dr. Jacob Jennings Work Phone: [facility] 11-04-2022 12:03-0500 Body weight 89.[address] Jacob Jennings Work Phone: [facility] 11-04-2022 12:03-0500 Diastolic blood pressure 69 mm[Hg] Dr. Jacob Jennings Work Phone: [facility] 11-04-2022 12:03-0500 Heart rate 75 /min Dr. Jacob Jennings Work Phone: [facility] 11-04-2022 12:03-0500 Respiratory rate 18 /min Dr. Jacob Jennings Work Phone: [facility] 11-04-2022 12:03-0500 SaO2% (BldA) [Mass fraction] 96 % Dr. Jacob Jennings Work Phone: [facility] 11-04-2022 12:03-0500 Systolic blood pressure 157 mm[Hg] Dr. Jacob Jennings Work Phone: [facility] 10-15-2022 09:00-0500 Body height 167.[address] Jacob Jennings Work Phone: [facility] Work Phone: 10-15-2022 09:00-0500 Body mass index (BMI) [Ratio] 32 kg/m2 Dr. Jacob Jennings Work Phone: [facility] 10-15-2022 09:00-0500 Body temperature 98.2 [degF] Dr. Jacob Jennings Work Phone: [facility] 10-15-2022 09:00-0500 Body weight 89.[address] Jacob Jennings Work Phone: [facility] 10-15-2022 09:00-0500 Diastolic blood pressure 70 mm[Hg] Dr. Jacob Jennings Work Phone: [facility] 10-15-2022 09:00-0500 Heart rate 86 /min Dr. Jacob Jennings Work Phone: [facility] 10-15-2022 09:00-0500 Respiratory rate 18 /min Dr. Jacob Jennings Work Phone: [facility] 10-15-2022 09:00-0500 SaO2% (BldA) [Mass fraction] 94 % Dr. Jacob Jennings Work Phone: [facility] 10-15-2022 09:00-0500 Systolic blood pressure 123 mm[Hg] Dr. Jacob Jennings Work Phone: [facility] 10-14-2022 09:54-0500 Body mass index (BMI) [Ratio] 32 kg/m2 Dr. Jacob Jennings Work Phone: [facility] Work Phone: 10-14-2022 09:54-0500 Body weight 90.[address] Jacob Jennings Work Phone: [facility] Work Phone: 10-14-2022 09:00-0500 Body mass index (BMI) [Ratio] 32.1 kg/m2 Dr. Jacob Jennings Work Phone: [facility] 10-14-2022 09:00-0500 Body temperature 98.3 [degF] Dr. Jacob Jennings Work Phone: [facility] 10-14-2022 09:00-0500 Body weight 90.[address] Jacob Jennings Work Phone: [facility] 10-14-2022 09:00-0500 Diastolic blood pressure 68 mm[Hg] Dr. Jacob Jennings Work Phone: [facility] 10-14-2022 09:00-0500 Heart rate 71 /min Dr. Jacob Jennings Work Phone: [facility] 10-14-2022 09:00-0500 Respiratory rate 16 /min Dr. Jacob Jennings Work Phone: [facility] 10-14-2022 09:00-0500 SaO2% (BldA) [Mass fraction] 95 % Dr. Jacob Jennings Work Phone: [facility] 10-14-2022 09:00-0500 Systolic blood pressure 128 mm[Hg] Dr. Jacob Jennings Work Phone: [facility] 09-23-2022 11:17-0500 Body temperature 97.2 [degF] Dr. Jacob Jennings Work Phone: [facility] 09-23-2022 11:17-0500 Diastolic blood pressure 57 mm[Hg] Dr. Jacob Jennings Work Phone: [facility] Work Phone: 09-23-2022 11:17-0500 Heart rate 70 /min Dr. Jacob Jennings Work Phone: [facility] Work Phone: 09-23-2022 11:17-0500 Respiratory rate 16 /min Dr. Jacob Jennings Work Phone: [facility] 09-23-2022 11:17-0500 Systolic blood pressure 102 mm[Hg] Dr. Jacob Jennings Work Phone: [facility] Work Phone: 09-23-2022 09:05-0500 Body mass index (BMI) [Ratio] 32.1 kg/m2 Dr. Jacob Jennings Work Phone: [facility] 09-23-2022 09:05-0500 Body temperature 98.8 [degF] Dr. Jacob Jennings Work Phone: [facility] 09-23-2022 09:05-0500 Body weight 90.[address] Jacob Jennings Work Phone: [facility] 09-23-2022 09:05-0500 Diastolic blood pressure 71 mm[Hg] Dr. Jacob Jennings Work Phone: [facility] 09-23-2022 09:05-0500 Heart rate 76 /min Dr. Jacob Jennings Work Phone: [facility] 09-23-2022 09:05-0500 Respiratory rate 16 /min Dr. Jacob Jennings Work Phone: [facility] 09-23-2022 09:05-0500 SaO2% (BldA) [Mass fraction] 95 % Dr. Jacob Jennings Work Phone: [facility] 09-23-2022 09:05-0500 Systolic blood pressure 131 mm[Hg] Dr. Jacob Jennings Work Phone: [facility] 09-11-2022 10:11-0400 Body height 167.[address] Jacob Jennings Work Phone: [facility] Work Phone: 09-11-2022 10:09-0400 Body mass index (BMI) [Ratio] 31.4 kg/m2 Dr. Jacob Jennings Work Phone: [facility] 09-11-2022 10:09-0400 Body temperature 98.9 [degF] Dr. Jacob Jennings Work Phone: [facility] 09-11-2022 10:09-0400 Body weight 88.[address] Jacob Jennings Work Phone: [facility] 09-11-2022 10:09-0400 Diastolic blood pressure 64 mm[Hg] Dr. Jacob Jennings Work Phone: [facility] 09-11-2022 10:09-0400 Heart rate 77 /min Dr. Jacob Jennings Work Phone: [facility] 09-11-2022 10:09-0400 Respiratory rate 16 /min Dr. Jacob Jennings Work Phone: [facility] 09-11-2022 10:09-0400 SaO2% (BldA) [Mass fraction] 92 % Dr. Jacob Jennings Work Phone: [facility] 09-11-2022 10:09-0400 Systolic blood pressure 138 mm[Hg] Dr. Jacob Jennings Work Phone: [facility] 09-02-2022 11:04-0400 Diastolic blood pressure 56 mm[Hg] Dr. Jacob Jennings Work Phone: [facility] Work Phone: 09-02-2022 11:04-0400 Heart rate 72 /min Dr. Jacob Jennings Work Phone: [facility] Work Phone: 09-02-2022 11:04-0400 SaO2% (BldA) [Mass fraction] 97 % Dr. Jacob Jennings Work Phone: [facility] Work Phone: 09-02-2022 11:04-0400 Systolic blood pressure 113 mm[Hg] Dr. Jacob Jennings Work Phone: [facility] Work Phone: 09-02-2022 09:04-0400 Body mass index (BMI) [Ratio] 31.5 kg/m2 Dr. Jacob Jennings Work Phone: [facility] Work Phone: 09-02-2022 09:04-0400 Body weight 88.[address] Jacob Jennings Work Phone: [facility] Work Phone: 09-02-2022 08:33-0400 Body mass index (BMI) [Ratio] 30.5 kg/m2 Dr. Jacob Jennings Work Phone: [facility] Work Phone: 09-02-2022 08:33-0400 Body temperature 98 [degF] Dr. Jacob Jennings Work Phone: [facility] Work Phone: 09-02-2022 08:33-0400 Body weight 88.[address] Jacob Jennings Work Phone: [facility] Work Phone: 09-02-2022 08:33-0400 Diastolic blood pressure 67 mm[Hg] Dr. Jacob Jennings Work Phone: [facility] Work Phone: 09-02-2022 08:33-0400 Heart rate 77 /min Dr. Jacob Jennings Work Phone: [facility] Work Phone: 09-02-2022 08:33-0400 Respiratory rate 16 /min Dr. Jacob Jennings Work Phone: [facility] Work Phone: 09-02-2022 08:33-0400 SaO2% (BldA) [Mass fraction] 92 % Dr. Jacob Jennings Work Phone: [facility] Work Phone: 09-02-2022 08:33-0400 Systolic blood pressure 114 mm[Hg] Dr. Jacob Jennings Work Phone: [facility] Work Phone: 08-12-2022 08:50-0400 Body mass index (BMI) [Ratio] 30.7 kg/m2 Dr. Jacob Jennings Work Phone: [facility] Work Phone: 08-12-2022 08:50-0400 Body temperature 98.7 [degF] Dr. Jacob Jennings Work Phone: [facility] Work Phone: 08-12-2022 08:50-0400 Body weight 88.[address] Jacob Jennings Work Phone: [facility] Work Phone: 08-12-2022 08:50-0400 Diastolic blood pressure 71 mm[Hg] Dr. Jacob Jennings Work Phone: [facility] Work Phone: 08-12-2022 08:50-0400 Heart rate 76 /min Dr. Jacob Jennings Work Phone: [facility] Work Phone: 08-12-2022 08:50-0400 Respiratory rate 16 /min Dr. Jacob Jennings Work Phone: [facility] Work Phone: 08-12-2022 08:50-0400 SaO2% (BldA) [Mass fraction] 96 % Dr. Jcaob Jennings Work Phone: [facility] Work Phone: 08-12-2022 08:50-0400 Systolic blood pressure 118 mm[Hg] Dr. Jacob Jennings Work Phone: [facility] Work Phone: 08-01-2022 08:36-0400 Body mass index (BMI) [Ratio] 30.2 kg/m2 Dr. Jacob Jennings Work Phone: [facility] Work Phone: 08-01-2022 08:36-0400 Body weight 87.[address] Jacob Jennings Work Phone: [facility] Work Phone: 08-01-2022 08:36-0400 Diastolic blood pressure 75 mm[Hg] Dr. Jacob Jennings Work Phone: [facility] Work Phone: 08-01-2022 08:36-0400 Heart rate 74 /min Dr. Jacob Jennings Work Phone: [facility] Work Phone: 08-01-2022 08:36-0400 SaO2% (BldA) [Mass fraction] 98 % Dr. Jacob Jennings Work Phone: [facility] Work Phone: 08-01-2022 08:36-0400 Systolic blood pressure 129 mm[Hg] Dr. Jacob Jennings Work Phone: [facility] Work Phone: 07-22-2022 09:59-0400 Body mass index (BMI) [Ratio] 30.5 kg/m2 Dr. Jacob Jennings Work Phone: [facility] Work Phone: 07-22-2022 09:59-0400 Body temperature 98.7 [degF] Dr. Jacob Jennings Work Phone: [facility] Work Phone: 07-22-2022 09:59-0400 Body weight 88.[address] Jacob Jennings Work Phone: [facility] Work Phone: 07-22-2022 09:59-0400 Diastolic blood pressure 69 mm[Hg] Dr. Jacob Jennings Work Phone: [facility] Work Phone: 07-22-2022 09:59-0400 Heart rate 67 /min Dr. Jacob Jennings Work Phone: [facility] Work Phone: 07-22-2022 09:59-0400 Respiratory rate 16 /min Dr. Jacob Jennings Work Phone: [facility] Work Phone: 07-22-2022 09:59-0400 SaO2% (BldA) [Mass fraction] 95 % Dr. Jacob Jennings Work Phone: [facility] Work Phone: 07-22-2022 09:59-0400 Systolic blood pressure 117 mm[Hg] Dr. Jacob Jennings Work Phone: [facility] Work Phone: 07-15-2022 10:10-0400 Body mass index (BMI) [Ratio] 29.4 kg/m2 Dr. Jacob Jennings Work Phone: [facility] Work Phone: 07-15-2022 10:10-0400 Body temperature 98.6 [degF] Dr. Jacob Jennings Work Phone: [facility] Work Phone: 07-15-2022 10:10-0400 Body weight 85.[address] Jacob Jennings Work Phone: [facility] Work Phone: 07-15-2022 10:10-0400 Diastolic blood pressure 56 mm[Hg] Dr. Jacob Jennings Work Phone: [facility] Work Phone: 07-15-2022 10:10-0400 Heart rate 80 /min Dr. Jacob Jennings Work Phone: [facility] Work Phone: 07-15-2022 10:10-0400 Respiratory rate 16 /min Dr. Jacob Jennings Work Phone: [facility] Work Phone: 07-15-2022 10:10-0400 SaO2% (BldA) [Mass fraction] 95 % Dr. Jacob Jennings Work Phone: [facility] Work Phone: 07-15-2022 10:10-0400 Systolic blood pressure 112 mm[Hg] Dr. Jacob Jennings Work Phone: [facility] Work Phone: 07-15-2022 09:04-0400 Body mass index (BMI) [Ratio] 32.5 kg/m2 Dr. Jacob Jennings Work Phone: [facility] Work Phone: 07-15-2022 09:04-0400 Body temperature 99 [degF] Dr. Jacob Jennings Work Phone: [facility] Work Phone: 07-15-2022 09:04-0400 Body weight 86.[address] Jacob Jennings Work Phone: [facility] Work Phone: 07-15-2022 09:04-0400 Diastolic blood pressure 57 mm[Hg] Dr. Jacob Jennings Work Phone: [facility] Work Phone: 07-15-2022 09:04-0400 Heart rate 75 /min Dr. Jacob Jennings Work Phone: [facility] Work Phone: 07-15-2022 09:04-0400 Respiratory rate 16 /min Dr. Jacob Jennings Work Phone: [facility] Work Phone: 07-15-2022 09:04-0400 SaO2% (BldA) [Mass fraction] 95 % Dr. Jacob Jennings Work Phone: [facility] Work Phone: 07-15-2022 09:04-0400 Systolic blood pressure 96 mm[Hg] Dr. Jacob Jennings Work Phone: [facility] Work Phone: 06-24-2022 09:14-0400 Body mass index (BMI) [Ratio] 33.7 kg/m2 Dr. Jacob Jennings Work Phone: [facility] Work Phone: 06-24-2022 09:14-0400 Body temperature 98.4 [degF] Dr. Jacob Jennings Work Phone: [facility] Work Phone: 06-24-2022 09:14-0400 Body weight 89.[address] Jacob Jennings Work Phone: [facility] Work Phone: 06-24-2022 09:14-0400 Diastolic blood pressure 66 mm[Hg] Dr. Jacob Jennings Work Phone: [facility] Work Phone: 06-24-2022 09:14-0400 Heart rate 70 /min Dr. Jacob Jennings Work Phone: [facility] Work Phone: 06-24-2022 09:14-0400 Respiratory rate 16 /min Dr. Jacob Jennings Work Phone: [facility] Work Phone: 06-24-2022 09:14-0400 SaO2% (BldA) [Mass fraction] 96 % Dr. Jacob Jennings Work Phone: [facility] Work Phone: 06-24-2022 09:14-0400 Systolic blood pressure 118 mm[Hg] Dr. Jacob Jennings Work Phone: [facility] Work Phone: 06-03-2022 12:14-0400 Respiratory rate 14 /min Dr. Jacob Jennings Work Phone: [facility] Work Phone: 06-03-2022 08:46-0400 Body mass index (BMI) [Ratio] 33.7 kg/m2 Dr. Jacob Jennings Work Phone: [facility] Work Phone: 06-03-2022 08:46-0400 Body temperature 98.2 [degF] Dr. Jacob Jennings Work Phone: [facility] Work Phone: 06-03-2022 08:46-0400 Body weight 89.[address] Jacob Jennings Work Phone: [facility] Work Phone: 06-03-2022 08:46-0400 Diastolic blood pressure 64 mm[Hg] Dr. Jacob Jnenings Work Phone: [facility] Work Phone: 06-03-2022 08:46-0400 Heart rate 77 /min Dr. Jacob Jennings Work Phone: [facility] Work Phone: 06-03-2022 08:46-0400 Respiratory rate 16 /min Dr. Jacob Jennings Work Phone: [facility] Work Phone: 06-03-2022 08:46-0400 SaO2% (BldA) [Mass fraction] 96 % Dr. Jacob Jennings Work Phone: [facility] Work Phone: 06-03-2022 08:46-0400 Systolic blood pressure 115 mm[Hg] Dr. Jacob Jennings Work Phone: [facility] Work Phone: 05-27-2022 09:25-0400 Body temperature 96.6 [degF] Dr. Jacob Jennings Work Phone: [facility] Work Phone: 03-11-2022 09:50-0400 Body height 164.[address] Jacob Jennings Work Phone: [facility] Work Phone: 03-11-2022 09:50-0400 Body mass index (BMI) [Ratio] 33.6 kg/m2 Dr. Jacob Jennings Work Phone: [facility] Work Phone: 03-11-2022 09:50-0400 Body weight 91.[address] Jacob Jennings Work Phone: [facility] Work Phone: 03-11-2022 09:07-0400 Body mass index (BMI) [Ratio] 33.6 kg/m2 Dr. Jacob Jennings Work Phone: [facility] Work Phone: 03-11-2022 09:07-0400 Body temperature 98.5 [degF] Dr. Jacob Jennings Work Phone: [facility] Work Phone: 03-11-2022 09:07-0400 Body weight 91.[address] Jacob Jennings Work Phone: [facility] Work Phone: 03-11-2022 09:07-0400 Diastolic blood pressure 66 mm[Hg] Dr. Jacob Jennings Work Phone: [facility] Work Phone: 03-11-2022 09:07-0400 Heart rate 75 /min Dr. Jacob Jennings Work Phone: [facility] Work Phone: 03-11-2022 09:07-0400 Respiratory rate 18 /min Dr. Jacob Jennings Work Phone: [facility] Work Phone: 03-11-2022 09:07-0400 SaO2% (BldA) [Mass fraction] 94 % Dr. Jacob Jennings Work Phone: [facility] Work Phone: 03-11-2022 09:07-0400 Systolic blood pressure 122 mm[Hg] Dr. Jacob Jennings Work Phone: [facility] Work Phone: 02-21-2022 08:49-0400 Body mass index (BMI) [Ratio] 33.8 kg/m2 Dr. Jacob Jennings Work Phone: [facility] Work Phone: 02-21-2022 08:49-0400 Body weight 92.[address] Jacob Jennings Work Phone: [facility] Work Phone: 02-21-2022 08:49-0400 Diastolic blood pressure 76 mm[Hg] Dr. Jacob Jennings Work Phone: [facility] Work Phone: 02-21-2022 08:49-0400 Heart rate 82 /min Dr. Jacob Jennings Work Phone: [facility] Work Phone: 02-21-2022 08:49-0400 Respiratory rate 16 /min Dr. Jacob Jennings Work Phone: [facility] Work Phone: 02-21-2022 08:49-0400 SaO2% (BldA) [Mass fraction] 94 % Dr. Jacob Jennings Work Phone: [facility] Work Phone: 02-21-2022 08:49-0400 Systolic blood pressure 131 mm[Hg] Dr. Jacob Jennings Work Phone: [facility] Work Phone: 02-18-2022 09:58-0400 Body mass index (BMI) [Ratio] 33.7 kg/m2 Dr. Jacob Jennings Work Phone: [facility] Work Phone: 02-18-2022 09:58-0400 Body temperature 98.4 [degF] Dr. Jacob Jennings Work Phone: [facility] Work Phone: 02-18-2022 09:58-0400 Body weight 92.[address] Jacob Jennings Work Phone: [facility] Work Phone: 02-18-2022 09:58-0400 Diastolic blood pressure 78 mm[Hg] Dr. Jacob Jennings Work Phone: [facility] Work Phone: 02-18-2022 09:58-0400 Heart rate 78 /min Dr. Jacob Jennings Work Phone: [facility] Work Phone: 02-18-2022 09:58-0400 Respiratory rate 16 /min Dr. Jacob Jennings Work Phone: [facility] Work Phone: 02-18-2022 09:58-0400 SaO2% (BldA) [Mass fraction] 95 % Dr. Jacob Jennings Work Phone: [facility] Work Phone: 02-18-2022 09:58-0400 Systolic blood pressure 124 mm[Hg] Dr. Jacob Jennings Work Phone: [facility] Work Phone: 01-28-2022 11:51-0400 Diastolic blood pressure 67 mm[Hg] Dr. Jacob Jennings Work Phone: [facility] Work Phone: 01-28-2022 11:51-0400 Heart rate 70 /min Dr. Jacob Jennings Work Phone: [facility] Work Phone: 01-28-2022 11:51-0400 Respiratory rate 16 /min Dr. Jacob Jennings Work Phone: [facility] Work Phone: 01-28-2022 11:51-0400 SaO2% (BldA) [Mass fraction] 97 % Dr. Jacob Jennings Work Phone: [facility] Work Phone: 01-28-2022 11:51-0400 Systolic blood pressure 125 mm[Hg] Dr. Jacob Jennings Work Phone: [facility] Work Phone: 01-28-2022 09:42-0400 Body mass index (BMI) [Ratio] 33.7 kg/m2 Dr. Jacob Jennings Work Phone: [facility] Work Phone: 01-28-2022 09:42-0400 Body temperature 98.4 [degF] Dr. Jacob Jennings Work Phone: [facility] Work Phone: 01-28-2022 09:42-0400 Body weight 92.[address] Jacob Jennings Work Phone: [facility] Work Phone: 01-28-2022 09:42-0400 Diastolic blood pressure 72 mm[Hg] Dr. Jacob Jennings Work Phone: [facility] Work Phone: 01-28-2022 09:42-0400 Heart rate 74 /min Dr. Jacob Jennings Work Phone: [facility] Work Phone: 01-28-2022 09:42-0400 Respiratory rate 16 /min Dr. Jacob Jennings Work Phone: [facility] Work Phone: 01-28-2022 09:42-0400 SaO2% (BldA) [Mass fraction] 96 % Dr. Jacob Jennings Work Phone: [facility] Work Phone: 01-28-2022 09:42-0400 Systolic blood pressure 120 mm[Hg] Dr. Jacob Jennings Work Phone: [facility] Work Phone: 01-07-2022 11:02-0500 Body temperature 97 [degF] Dr. Jacob Jennings Work Phone: [facility] Work Phone: 01-07-2022 07:12-0500 Body mass index (BMI) [Ratio] 33.7 kg/m2 Dr. Jacob Jennings Work Phone: [facility] Work Phone: 01-07-2022 07:12-0500 Body temperature 98.1 [degF] Dr. Jacob Jennings Work Phone: [facility] Work Phone: 01-07-2022 07:12-0500 Body weight 92.[address] Jacob Jennings Work Phone: [facility] Work Phone: 01-07-2022 07:12-0500 Diastolic blood pressure 67 mm[Hg] Dr. Jacob Jennings Work Phone: [facility] Work Phone: 01-07-2022 07:12-0500 Heart rate 71 /min Dr. Jacob Jennings Work Phone: [facility] Work Phone: 01-07-2022 07:12-0500 Respiratory rate 18 /min Dr. Jacob Jennings Work Phone: [facility] Work Phone: 01-07-2022 07:12-0500 SaO2% (BldA) [Mass fraction] 96 % Dr. Jacob Jennings Work Phone: [facility] Work Phone: 01-07-2022 07:12-0500 Systolic blood pressure 122 mm[Hg] Dr. Jacob Jennings Work Phone: [facility] Work Phone: 12-17-2021 08:53-0500 Body mass index (BMI) [Ratio] 33.5 kg/m2 Dr. Jacob Jennings Work Phone: [facility] Work Phone: 12-17-2021 08:53-0500 Body temperature 98.5 [degF] Dr. Jacob Jennings Work Phone: [facility] Work Phone: 12-17-2021 08:53-0500 Body weight 91.[address] Jacob Jennings Work Phone: [facility] Work Phone: 12-17-2021 08:53-0500 Diastolic blood pressure 76 mm[Hg] Dr. Jacob Jennings Work Phone: [facility] Work Phone: 12-17-2021 08:53-0500 Heart rate 72 /min Dr. Jacob Jennings Work Phone: [facility] Work Phone: 12-17-2021 08:53-0500 Respiratory rate 16 /min Dr. Jacob Jennings Work Phone: [facility] Work Phone: 12-17-2021 08:53-0500 SaO2% (BldA) [Mass fraction] 97 % Dr. Jacob Jennings Work Phone: [facility] Work Phone: 12-17-2021 08:53-0500 Systolic blood pressure 130 mm[Hg] Dr. Jacob Jennings Work Phone: [facility] Work Phone: 11-26-2021 07:09-0500 Body mass index (BMI) [Ratio] 34 kg/m2 Dr. Jacob Jennings Work Phone: [facility] Work Phone: 11-26-2021 07:09-0500 Body temperature 98.4 [degF] Dr. Jacob Jennings Work Phone: [facility] Work Phone: 11-26-2021 07:09-0500 Body weight 92.[address] Jacob Jennings Work Phone: [facility] Work Phone: 11-26-2021 07:09-0500 Diastolic blood pressure 69 mm[Hg] Dr. Jacob Jennings Work Phone: [facility] Work Phone: 11-26-2021 07:09-0500 Heart rate 77 /min Dr. Jacob Jennings Work Phone: [facility] Work Phone: 11-26-2021 07:09-0500 Respiratory rate 16 /min Dr. Jacob Jennings Work Phone: [facility] Work Phone: 11-26-2021 07:09-0500 SaO2% (BldA) [Mass fraction] 96 % Dr. Jacob Jennings Work Phone: [facility] Work Phone: 11-26-2021 07:09-0500 Systolic blood pressure 119 mm[Hg] Dr. Jacob Jennings Work Phone: [facility] Work Phone: 11-19-2021 10:03-0500 Body mass index (BMI) [Ratio] 33.4 kg/m2 Dr. Jacob Jennings Work Phone: [facility] Work Phone: 11-19-2021 10:03-0500 Body temperature 98.4 [degF] Dr. Jacob Jennings Work Phone: [facility] Work Phone: 11-19-2021 10:03-0500 Body weight 91.[address] Jacob Jennings Work Phone: [facility] Work Phone: 11-19-2021 10:03-0500 Diastolic blood pressure 77 mm[Hg] Dr. Jacob Jennings Work Phone: [facility] Work Phone: 11-19-2021 10:03-0500 Heart rate 74 /min Dr. Jacob Jennings Work Phone: [facility] Work Phone: 11-19-2021 10:03-0500 Respiratory rate 16 /min Dr. Jacob Jennings Work Phone: [facility] Work Phone: 11-19-2021 10:03-0500 SaO2% (BldA) [Mass fraction] 95 % Dr. Jacob Jennings Work Phone: [facility] Work Phone: 11-19-2021 10:03-0500 Systolic blood pressure 125 mm[Hg] Dr. Jacob Jennings Work Phone: [facility] Work Phone: 05-17-2021 15:29-0400 Body temperature 96.91 [...] 32.61 kg/m2 Tono Birch MD Work Phone: [facility] Work Phone: 05-15-2021 09:34-0400 Body weight 86.18 kg Tono Birch MD Work Phone: [facility] Work Phone: 03-15-2021 12:00-0400 Heart rate 94 /min Anaid Zee MD Work Phone: [facility] Work Phone: 03-15-2021 12:00-0400 Respiratory rate 16 /min Anaid Zee MD Work Phone: [facility] Work Phone: 03-15-2021 12:00-0400 SaO2% (BldA) [Mass fraction] 94 % Anaid Zee MD Work Phone: [facility] Work Phone: 03-15-2021 11:00-0400 Diastolic blood pressure 63 mm[Hg] Anaid Zee MD Work Phone: [facility] Work Phone: 03-15-2021 11:00-0400 Systolic blood pressure 124 mm[Hg] Anadi Zee MD Work Phone: [facility] Work Phone: 03-15-2021 08:00-0400 Body temperature 97.39 [degF] Anaid Zee MD Work Phone: [facility] Work Phone: 03-15-2021 06:00-0400 Body mass index (BMI) [Ratio] 31.07 kg/m2 Anaid Zee MD Work Phone: [facility] Work Phone: 03-15-2021 06:00-0400 Body weight 82.1 [...] End: 09-14-2025 Clinical Support Schedule [facility] Comment on above: Essential hypertensi on (Primary Dx) Start: 09-07-2025 End: 09-07-2025 Office outpatient visit 25 minutes Eleuterio Hatch MD Work Phone: [facility] Comment on above: Chronic bronchitis, unspecified chronic bronchitis type (HCC) (Primary Dx); Aortic stenosis, mild; Essential hypertension; Celiac disease; Hypercholesterolemia; Elevated PSA; Screening for prostate cancer; Screening for diabetes mellitus; Renal cell carcinoma of right kidney (HCC) Start: 09-07-2025 End: 09-07-2025 ambulatory JACOB WILLSONWHITNEY [facility] Start: 09-06-2025 End: 09-06-2025 ambulatory Verónica Meadows NP Facility:[facility] Start: 08-29-2025 End: 08-29-2025 ambulatory FRANCOIS ACEVEDO Facility:[facility] Start: 08-24-2025 End: 08-24-2025 Dr. Artemio Farrar MD -[facility] Work Phone: Start: 08-24-2025 End: 08-24-[address] Jacob Jennings DO Work Phone: [facility] Start: 08-22-2025 Dr. Antwan Pitts MD [facility] Work Phone: Start: 08-22-2025 Lalo LAZARO -[facility] Start: 08-21-2025 Dr. Antwan Pitts MD - [facility] Work Phone: Start: 08-20-2025 Dr. Artemio Farrar MD -[facility] Start: 08-19-2025 ambulatory Jacob Willsonpiper Facilit y:[facility] Start: 08-19-2025 End: 08-22-2025 Evaluation and management of inpatient Dr. Jacob Jennings DO Work Phone: -Progressive Care Unit Start: 08-19-2025 End: 08-22-2025 Dr. Antwan Pitts MD -[facility] Work Phone: Start: 08-19-2025 End: 08-19-2025 Emergency department patient visit Tono Birch MD Work Phone: [facility] Comment on above: Sepsis, due to unspe cified organism, unspecified whether acute organ dysfunction present (HCC) (Primary Dx); Cellulitis of right upper extremity; Cat bite, initial encounter; Immunocompromised state (HCC); Malignant neoplasm of kidney, unspecified laterality (HCC) Start: 08-16-2025 End: 08-16-2025 ambulatory KESHA DEY Facility:[facility] Start: 08-16-[address] Kavin Rodriguez MD [facility] Start: 08-16-2025 End: 08-16-2025 Patient encounter procedure Verónica Dori DIAMOND GRINDER-C -[facility] Work Phone: Start: 08-16-2025 End: 08-16-2025 Verónica Dori [facility] -[facility] Work Phone: Start: 08-16-2025 End: 08-16-[address] Jacob Jennings DO Work Phone: [facility] Start: 08-04-2025 End: 08-04-[address] Thien Sandoval MD [facility] Work Phone: Start: 08-04-2025 End: 08-04-2025 Dr. Thien Sandoval MD [facility] Work Phone: Start: 08-04-2025 End: 08-04-[address] Jacob Jennings DO Work Phone: [facility] Start: 07-26-[address] [facility] Start: 07-26-2025 End: 07-26-2025 Patient encounter procedure Verónica Dori [facility]ER-C -[facility] Work Phone: Start: 07-26-2025 End: 07-26-2025 Verónica Dori [facility]-C -[facility] Work Phone: Start: 07-26-2025 End: 07-26-[address] Jacob Jennings DO Work Phone: [facility] Start: 07-05-2025 End: 07-05-[address] Angela Rodriguez MD [facility] Work Phone: Start: 07-05-2025 End: 07-05-2025 Dr. Angela Rodriguez MD -[facility] Work Phone: Start: 07-05-2025 End: 07-05-[address] Jacob Jennings DO Work Phone: [facility] Start: 07-04-2025 End: 07-04-2025 Patient encounter procedure Michael Chambers DO -[facility] Work Phone: Start: 07-04-2025 End: 07-04-2025 Michaelapollo Chambers DO -[facility] Work Phone: Start: 07-04-2025 End: 07-04-[address] Jacob Jennings DO Work Phone: [facility] Start: 06-28-[address] Kavin Rodriguez MD -[facility] Start: 06-28-2025 End: 06-28-[address] Jacob Jennings DO Work Phone: -Cat Scan [facility] Start: 06-28-2025 End: 06-28-[address] Angela Rodriguez MD -Cat Scan [facility] Work Phone: Start: 06-28-2025 End: 06-28-2025 Dr. Angela Rodriguez MD -Cat Scan [facility] Work Phone: Start: 06-28-2025 End: 06-28-2025 ambulatory Angela Rodriguez Facility:[facility] Start: 06-25-2025 End: 06-26-2025 Refill Jacob Jennings DO Work Phone: [facility] Start: 06-15-2025 End: 06-15-2025 Patient encounter procedure Verónica GALINDO -[facility] Work Phone: Start: 06-15-2025 End: 06-15-2025 Verónica GALINDO -[facility] Work Phone: Start: 06-15-2025 End: 06-15-[address] Jacob Jennings DO Work Phone: [facility] Start: 06-09-2025 End: 06-09-2025 Patient encounter procedure Monalisa Dunne [facility] GRINDER-C -[facility] Work Phone: Start: 06-09-2025 End: 06-09-2025 Monalisa BALLARDC -[facility] Work Phone: Start: 06-09-2025 End: 06-09-[address] Jacob Jennings DO Work Phone: -[facility] Start: 05-24-[address] Kavin Rodriguez MD -[facility] Start: 05-24-2025 End: 05-24-[address] Angela Rodriguez MD -[facility] Work Phone: Start: 05-24-2025 End: 05-24-2025 Dr. Angela Rodriguez MD -[facility] Work Phone: Start: 05-24-2025 End: 05-24-[address] Jacob Jennings DO Work Phone: [facility] Start: 05-23-2025 End: 05-23-2025 Patient encounter procedure Francois Acevedo MD Work Phone: [facility] Comment on above: Secondary malignant neoplasm of brain (HCC) (Primary Dx) Start: 05-23-2025 End: 05-23-2025 ambulatory FRANCOIS ACEVEDO Facility:[facility] Start: 05-18-2025 End: 05-18-2025 ambulatory Lab/[place] [facility] Work Phone: Hematology/Oncology Comment on above: History of cancer me tastatic to brain (Primary Dx) Start: 05-18-2025 End: 05-18-2025 Subsequent hospital visit by physician [facility] (I-Stat/1.5t) Work Phone: Radiology Comment on above: 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] Start: 05-02-2025 End: 05-02-2025 Patient encounter procedure [facility] Work Phone: Start: 05-02-2025 End: 05-02-2025 [facility] Work Phone: Start: 05-02-2025 End: 05-02-[address] Jacob Jennings DO Work Phone: [facility] Work Phone: Start: 04-18-2025 End: 04-18-2025 Assay of hemosiderin, quant Jacob Jennings DO Work Phone: [facility] Start: 04-18-2025 End: 04-18-2025 Patient encounter procedure Jacob Robin Dick TAYLOR Work Phone: [facility] [place] Comment on above: Encounter for subseq uent annual wellness visit (AWV) in Medicare patient (Primary Dx); Adenosquamous carcinoma of lung, left (HCC); Chronic bronchitis, unspecified chronic bronchitis type (HCC); 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); History of pulmonary embolism; Hypercholesterolemia; Coronary artery disease involving swinomish coronary artery of swinomish heart without angina pectoris; Essential hypertension; History of renal carcinoma; Cervical radiculopathy due to degenerative joint disease of spine; Celiac disease; Routine general medical examination at health care facility Start: 04-18-2025 End: 04-18-2025 ambulatory [facility] Start: 04-18-2025 End: 04-18-2025 Encounter for general adult medical examination without abnormal findings [facility] Start: 04-12-2025 End: 04-12-[address] Angela Rodriguez MD -[facility] Work Phone: Start: 04-12-2025 End: 04-12-2025 Dr. Angela Rodriguez MD -[facility] Work Phone: Start: 04-12-2025 End: 04-12-[address] Jacob Jennings DO Work Phone: [facility] Work Phone: Start: 03-30-2025 End: 03-30-2025 Patient encounter procedure Michael Chambers DO -[facility] Work Phone: Start: 03-30-2025 End: 03-30-2025 Michael Chambers DO -[facility] Work Phone: Start: 03-30-2025 End: 03-30-2025 ambulatory Michael Chambers Facility[facility] Start: 03-29-2025 End: 03-29-2025 Patient encounter procedure Verónica Dori [facility] -[facility] Work Phone: Start: 03-29-2025 End: 03-29-2025 Verónica Meadows DIAMOND GRINDER-C -[facility] Work Phone: Start: 03-29-2025 End: 03-29-[address] Jacob Jennings DO Work Phone: [facility] Work Phone: Start: 03-27-2025 End: 03-28-2025 Telephone encounter Jacob Jennings DO [facility] Comment on above: Other (Plan of care) Start: 03-26-2025 End: 03-27-2025 Refill Jacob Jennings DO Work Phone: [facility] Start: 03-24-2025 Non-patient / Non-visit Michael Frie nd DO -[facility] Start: 03-24-2025 Michael Friend DO -[facility] Start: 03-23-2025 Non-patient / Non-visit Michael Frie nd DO -[facility] Start: 03-23-2025 Michael Friend DO -[facility] Start: 03-23-2025 Non-patient / Non-visit Dr. Emmanuel Kaiser MD -[facility] Work Phone: Start: 03-23-2025 Dr. Emmanuel Kaiser MD -[facility] Work Phone: Start: 03-22-2025 Non-patient / Non-visit Michael Vaughn nd DO -[facility] Start: 03-22-2025 Michael Friend DO -[facility] Start: 03-22-2025 Non-patient / Non-visit Dr. Emmanuel Kaiser MD -[facility] Work Phone: Start: 03-22-2025 Dr. Emmanuel Kaiser MD -[facility] Work Phone: Start: 03-21-2025 Non-patient / Non-visit Michael Monzoncarroll nd DO -[facility] Start: 03-21-2025 Michael Friend DO -[facility] Start: 03-21-2025 ambulatory Sayra Fuentes Facility :[facility] Start: 03-21-2025 End: 03-24-2025 Evaluation and management of inpatient Dr. Jacob Jennings DO Work Phone: [facility] Work Phone: Start: 03-21-2025 End: 03-24-2025 Dr. Sayra Fuentes MD -[facility] 3 Work Phone: Start: 03-15-2025 End: 03-15-[address] Angela Rodriguez MD -[facility] Work Phone: Start: 03-15-2025 End: 03-15-2025 Dr. Angela Rodriguez MD -[facility] Work Phone: Start: 03-15-2025 End: 03-15-2025 ambulatory Angela Rodriguez Facility:[facility] Start: 03-02-2025 End: 03-03-2025 Refill Jacob Jennings DO Work Phone: [facility] Start: 02-21-2025 End: 02-21-2025 Office outpatient visit 15 minutes Jacob Jennings DO Work Phone: [facility] Comment on above: Chronic bronchitis, unspecified chronic bronchitis type (HCC) (Primary Dx); Adenosquamous carcinoma of lung, left (HCC); Chemotherapy induced diarrhea Start: 02-21-2025 End: 02-21-2025 Orders Only Jacob Jennings DO Work Phone: [facility] Start: 02-16-2025 End: 02-16-2025 Patient encounter procedure Michael Reyes DO -[facility] Work Phone: Start: 02-16-2025 End: 02-16-2025 Michael Reyes DO -[facility] Work Phone: Start: 02-16-2025 End: 02-16-2025 ambulatory Michael Chambers Facility:[facility] Start: 02-01-2025 End: 02-01-[address] Angela Rodriguez MD -[facility] Work Phone: Start: 02-01-2025 End: 02-01-2025 Dr. Angela Rodriguez MD [facility] Work Phone: Start: 02-01-2025 End: 02-01-2025 ambulatory Angela Rodriguez Facility:[facility] Start: 01-23-2025 End: 01-23-2025 Telephone encounter Jacob Jennings Work Phone: [facility] Start: 01-20-2025 End: 01-20-2025 ambulatory Lesly Barrios RN [facility] Start: 01-20-2025 End: 01-20-2025 Patient encounter procedure Lesly Barrios RN [facility] Start: 01-20-2025 End: 03-27-2025 Telephone encounter Jacbo Jennings DO Work Phone: [facility] Start: 01-18-2025 Dr. Evelio Hong MD -[facility] Work Phone: Start: 01-17-2025 Michael Chambers [facility] Start: 01-17-2025 Dr. Chris Medina [facility] Work Phone: Start: 01-16-2025 Dr. Antwan Pitts MD -[facility] Work Phone: Start: 01-15-2025 Dr. Antwan Pitts MD -[facility] Work Phone: Start: 01-14-2025 Dr. Antwan Pitts MD -[facility] Work Phone: Start: 01-13-2025 Michael Chambers [facility] Start: 01-13-2025 Dr. Katlin carpio MD -[facility] Work Phone: Start: 01-13-2025 [facility] Start: 01-12-2025 Dr. Katlin carpio MD -[facility] Work Phone: Start: 01-11-2025 ambulatory Jacob Saldañaa Facilit y:[facility] Start: 01-11-2025 Dr. Eduin Narvaez MD -[facility] Start: 01-11-2025 Dr. Katlin carpio MD [facility] Work Phone: Start: 01-10-2025 End: 01-18-2025 [facility] Start: 01-10-2025 ambulatory Jacob Jennings Facilit y:[facility] Start: 01-10-2025 End: 01-18-2025 Dr. Evelio Hong MD -Progressive Care Unit Work Phone: Start: 01-07-2025 End: 01-07-2025 Dr. Indio Simon MD -Emergency Department Work Phone: Start: 01-07-2025 End: 01-07-2025 Emergency department patient visit [facility] Facility:[facility] Start: 12-30-2024 End: 12-30-2024 Patient encounter procedure Beatriz Damon RN [facility] Start: 12-30-2024 End: 01-20-2025 Telephone encounter Jacob Robin Dick DO Work Phone: [facility] Start: 12-30-2024 End: 12-30-2024 Office outpatient visit 25 minutes Jacob Robin Dick DO Work Phone: [facility] Comment on above: Nausea (Primary Dx); Chronic bronchitis, unspecified chronic bronchitis type (HCC); Hypochromic microcytic anemia; History of bleeding peptic ulcer; 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; 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); History of pulmonary embolism Start: 12-30-2024 End: 12-30-2024 ambulatory Beatriz Damon RN [facility] Start: 12-28-2024 End: 12-28-2024 ambulatory Ginette Bentley RN [facility] Start: 12-28-2024 End: 12-28-2024 Patient encounter procedure Ginette Bentley RN [facility] Start: 12-21-2024 End: 12-21-2024 Verónica Meadows NP-[facility] Work Phone: Start: 12-21-2024 End: 12-21-2024 ambulatory Verónica Meadows NP Facility:[facility] [facility] Start: 12-16-2024 Dr. Amber pike MD -[facility] Work Phone: Start: 12-15-2024 Dr. Amber pike MD -[facility] Work Phone: Start: 12-14-2024 ambulatory Sayra L White Facility [facility] Start: 12-14-2024 End: 12-16-2024 Evaluation and management of inpatient Sayra L White Facility:[facility] Start: 12-14-2024 End: 12-16-2024 Dr. Amber Cat MD -Medical Surgical 2 Work Phone: Start: 12-12-2024 End: 12-12-2024 ambulatory Leigh Casiano RN [facility] Clinical Communication Start: 12-12-2024 End: 12-12-2024 Patient encounter procedure Leigh Casiano RN [facility] Clinical Communication Start: 12-12-2024 End: 12-24-2024 Telephone encounter Jacob Jennings DO [facility] Comment on above: Other Start: 12-06-2024 End: 12-06-2024 Patient encounter procedure Paige Villalobos RN [facility] Clinical Communication Start: 12-06-2024 End: 12-06-2024 Office outpatient visit 15 minutes Jacob Jennings DO Work Phone: [facility] Comment on above: Acute non-recurrent frontal sinusitis (Primary Dx); Adverse effect of drug, subsequent encounter; Chronic bronchitis, unspecified chronic bronchitis type (HCC); 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) Start: 12-06-2024 End: 12-06-2024 ambulatory Paige Villalobos RN [facility] Clinical Communication Start: 12-05-2024 End: 12-05-2024 Refill Jacob Jennings Work Phone: [facility] Start: 12-02-2024 End: 12-02-2024 Gage LAZARO -[facility] Work Phone: Start: 12-02-2024 End: 12-02-2024 ambulatory Jacob Willsonharishpiper Facility[facility] Start: 12-01-2024 End: 12-01-2024 [facility]ulatory [facility] Start: 12-01-2024 End: 12-01-2024 Patient encounter procedure [facility] Start: 11-29-2024 End: 11-29-2024 Michael COSTELLOEzel Gastro[facility] Work Phone: Start: 11-29-2024 End: 11-29-2024 ambulatory Jacob Anamikawhitney Facility:[facility] Start: 11-21-2024 End: 11-21-2024 Telephone encounter Francois Acevedo MD Work Phone: [facility] Start: 11-18-2024 End: 11-18-2024 Patient encounter procedure Francois Acevedo MD Work Phone: [facility] Comment on above: Secondary malignant neoplasm of brain (HCC) (Primary Dx) Start: 11-18-2024 End: 11-18-2024 ambulatory FRANCOIS ACEVEDO Facility:[facility] Start: 11-17-2024 End: 11-17-2024 ambulatory Michael Chambers Facility:[facility] Start: 11-11-2024 End: 11-11-2024 ambulatory Lab[facility] [facility] Work Phone: Hematology/Oncology Comment on above: History of cancer me tastatic to brain (Primary Dx) Start: 11-11-2024 End: 11-11-2024 Subsequent hospital visit by physician Mri [facility] (I-Stat/1.5t) Work Phone: Radiology Comment on above: Metastatic cancer to brain (HCC) [C79.31] Start: 11-08-2024 End: 11-08-2024 ambulatory Jacob Jennings Facility:[facility] Start: 10-20-2024 End: 10-20-2024 Office outpatient visit 25 minutes Jacob Jennings DO Work Phone: [facility] Comment on above: Essential hypertensi on (Primary Dx); Adenocarcinoma of right lung (HCC); Hypercholesterolemia; Seizure (HCC); History of pulmonary embolism; Ex-smoker; Hypochromic microcytic anemia; History of colon polyps; Coronary artery disease involving swinomish coronary artery of swinomish heart without angina pectoris Start: 10-20-2024 End: 10-20-2024 ambulatory JACOB ANAMIKACHI [facility] Start: 10-18-2024 End: 10-18-2024 Refill Kesha Dey APRN.CNP Work Phone: [facility] Comment on above: Refill Request Start: 10-18-2024 End: 10-18-2024 ambulatory Jackietonny Michael Facility:[facility] Start: 10-08-2024 End: 10-10-2024 Refill Jacob Jennings DO Work Phone: [facility] Start: 09-28-2024 End: 09-28-2024 ambulatory Verónica Meadows NP Facility:[facility] Start: 09-22-2024 End: 09-22-2024 Refill Jacob Jennings DO Work Phone: [facility] Start: 09-19-2024 End: 09-19-2024 Office outpatient visit 15 minutes Jacob Sharda Dick DO Work Phone: [facility] Comment on above: Skin infection (Prim brigette Dx); Coronary artery disease involving swinomish coronary artery of swinomish heart without angina pectoris; 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); Inclusion cyst Start: 09-19-2024 End: 09-19-2024 ambulatory JACOB [facility] Start: 09-16-2024 End: 09-20-2024 ambulatory [facility] Start: 09-16-2024 End: 09-20-2024 Patient encounter procedure [facility] Start: 09-15-2024 End: 09-15-2024 ambulatory Jacob Willsonwhitney Facility:[facility] Start: 05-26-2024 End: 05-26-2024 Refill Jacob Robin [facility]piper DO Work Phone: [facility] Start: 05-20-2024 End: 05-20-2024 Patient encounter procedure Francois Acevedo MD Work Phone: [facility] Comment on above: Metastatic cancer to brain (HCC) (Primary Dx); Secondary malignant neoplasm of brain (HCC) Start: 05-17-2024 End: 05-17-2024 ambulatory Chair 3 [facility] Start: 05-17-2024 End: 05-17-2024 Patient encounter procedure Chair [facility] Comment on above: Encounter for manage ment of implanted device (Primary Dx) Start: 05-17-2024 End: 05-17-2024 Subsequent hospital visit by physician Mri [facility] (1.5t/Lg Bore 70cm) Work Phone: [facility] Comment on above: Metastatic cancer to brain (HCC) [C79.31] Start: 04-19-2024 Refill Kesha Dey LEXIStellaSALES SERVICE COORDINATOR Work Phone: [facility] Comment on above: Refill Request Start: 04-19-2024 End: 04-19-2024 Office outpatient visit 25 minutes Jacob Jennings DO Work Phone: [facility] Comment on above: Essential hypertensi on (Primary Dx); 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; Actinic keratosis; Coronary artery disease involving swinomish coronary artery of swinomish heart without angina pectoris; Prostate cancer screening; 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); History of pulmonary embolus (PE) Start: 04-15-2024 Refill Jacob alicea DO Work Phone: [facility] Start: 03-09-2024 Non-patient / Non-visit Dr. Rajan Jennings Work Phone: [facility] Start: 03-09-2024 Non-patient / Non-visit Dr. Rajan Jennings Work Phone: [facility] Work Phone: Start: 03-08-2024 Non-patient / Non-visit Dr. Rajan Jennings Work Phone: [facility] Work Phone: Start: 03-08-2024 End: 03-09-2024 Evaluation and management of inpatient Dr. Jacob Jennings Work Phone: [facility]-Medical Surgical 3 Work Phone: Start: 03-08-2024 End: 03-09-[address] Jacob Jennings Work Phone: [facility] Work Phone: Start: 03-08-2024 Non-patient / Non-visit Dr. Rajan Jennings [facility] Start: 03-07-[address] Yahir Jennings Work Phone: [facility] Start: 03-02-2024 End: 03-02-[address] Jacob Jennings Work Phone: [facility] Work Phone: Start: 03-02-[address] Yahir Jennings Work Phone: [facility] Start: 03-01-2024 End: 03-01-[address] Jacob Jennings Work Phone: [facility] Work Phone: Start: 03-01-2024 End: 03-01-2024 Non-patient / Non-visit Dr. Jacob Jennings Work Phone: [facility] Work Phone: Start: 02-25-2024 End: 02-25-[address] Jacob Jennings Work Phone: [facility] Work Phone: Start: 02-25-2024 End: 02-25-[address] Jacob Jennings Work Phone: [facility] Work Phone: Start: 02-25-2024 End: 02-25-[address] Jacob Jennings Work Phone: [facility] Work Phone: Start: 02-19-2024 End: 02-19-2024 Patient encounter procedure Francois Acevedo MD Work Phone: [facility] Comment on above: Metastatic cancer to brain (HCC) (Primary Dx) Start: 02-15-2024 End: 02-15-2024 Subsequent hospital visit by physician Mri [facility] (1.5t/Lg Bore 70cm) Work Phone: [facility] Comment on above: Metastatic cancer to brain (HCC) [C79.31] Start: 02-10-2024 End: 02-10-[address] Jacob Jennings Work Phone: [facility] Work Phone: Start: 01-20-2024 End: 01-20-[address] Jacob Jennings Work Phone: [facility] Work Phone: Start: 01-15-2024 End: 01-15-[address] Jacob Jennings Work Phone: [facility] Work Phone: Start: 01-13-[address] Yahir Jennings Work Phone: [facility] Start: 01-13-2024 End: 01-13-[address] Jacob Jennings Work Phone: [facility] Work Phone: Start: 01-13-2024 End: 01-13-[address] Jacob Jennings Work Phone: [facility] Work Phone: Start: 01-08-2024 Telephone encounter Jacob stallworth DO Work Phone: [facility] Comment on above: Referral (Dr Osei) Start: 01-08-2024 End: 01-08-[address] Jacob Jennings Work Phone: [facility] Work Phone: Start: 01-07-2024 End: 01-07-2024 Office outpatient visit 40 minutes Jacob Jennings DO Work Phone: [facility] Comment on above: Essential hypertensi on (Primary Dx); 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); Obesity, morbid (HCC); Seizure (HCC); Hypercholesterolemia; Coronary artery disease involving swinomish coronary artery of swinomish heart without angina pectoris; History of colon polyps; Right carotid bruit; History of pulmonary embolism; Prostate cancer screening; Chronic gastritis without bleeding, unspecified gastritis type Start: 01-06-2024 End: 01-06-[address] Jacob Jennings Work Phone: [facility] Work Phone: Start: 01-06-2024 End: 01-06-[address] Jacob Jennings Work Phone: [facility] Work Phone: Start: 12-30-[address] Yahir Jennings Work Phone: [facility] Start: 12-30-2023 End: 12-30-[address] Jacob Jennings Work Phone: [facility] Work Phone: Start: 12-23-2023 Non-patient / Non-visit Dr. Rajan Jennings Work Phone: [facility] Work Phone: Start: 12-09-2023 End: 12-09-[address] Jacob Jennings Work Phone: [facility] Work Phone: Start: 12-04-2023 End: 12-04-[address] Jacob Jennings Work Phone: [facility]-Pulmonary Medicine [facility] Work Phone: Start: 11-24-2023 End: 11-24-2023 Office outpatient visit 15 minutes Em Philip PA-C Work Phone: [facility] Comment on above: Epistaxis (Primary D x); Skin tear of right upper arm without complication, initial encounter; Upper respiratory tract infection, unspecified type Start: 11-24-2023 ambulatory Merlene mccurdy RN [facility] Clinical Communication Start: 11-24-2023 Patient encounter procedure Merlene Andino RN [facility] Clinical Communication Start: 11-18-2023 End: 11-18-[address] Jacob Jennings Work Phone: [facility] Work Phone: Start: 10-28-2023 End: 10-28-[address] Jacob Jennings Work Phone: [facility] Work Phone: Start: 10-20-2023 Orders Only Kesha Dey LAB CLERK.SALES SERVICE COORDINATOR Work Phone: [facility] Comment on above: Metastatic cancer to brain (HCC) (Primary Dx) Start: 10-19-2023 ambulatory [facility]ACOB JENNINGS [facility] Start: 10-19-2023 End: 10-19-2023 Subsequent hospital visit by physician [facility] (1.5t) Radiology Comment on above: Metastatic cancer to brain (HCC) [C79.31] Start: 10-19-2023 Telephone encounter Francois Acevedo MD Work Phone: [facility] Comment on above: Patient Question Start: 10-18-2023 End: 10-18-2023 Emergency department patient visit Dr. Jacob Jennings Work Phone: [facility]-Emergency Department Work Phone: Start: 10-15-2023 Refill Kesha Dey LAB CLERK.SALES SERVICE COORDINATOR Work Phone: [facility] Comment on above: Refill Request Start: 10-07-[address] Yahir Jennings Work Phone: [facility] Start: 10-07-2023 End: 10-07-[address] Jacob Jennings Work Phone: [facility] Work Phone: Start: 10-05-2023 End: 10-05-[address] Jacob Jennings Work Phone: [facility] Work Phone: Start: 10-05-2023 End: 10-05-[address] Jacob Jennings Work Phone: [facility] Work Phone: Start: 09-16-2023 End: 09-16-[address] Jacob Jennings Work Phone: [facility] Work Phone: Start: 09-08-2023 Telephone encounter Kesha vo LAB CLERK.SALES SERVICE COORDINATOR Work Phone: [facility] Comment on above: Patient Update Start: 09-03-2023 Telephone encounter Kesha vo LAB CLERK.SALES SERVICE COORDINATOR Work Phone: [facility] Comment on above: Returning Patient's Call Start: 09-02-2023 End: 09-02-[address] Jacob Jennings Work Phone: [facility] Work Phone: Start: 09-02-2023 End: 09-02-[address] Jacob Jennings Work Phone: [facility] Work Phone: Start: 09-02-2023 End: 09-02-[address] Jacob Jennings Work Phone: [facility] Work Phone: Start: 08-26-[address] Yahir Jennings Work Phone: [facility] Start: 08-26-2023 End: 08-26-[address] Jacob Jennings Work Phone: [facility] Work Phone: Start: 08-25-2023 Telephone encounter Kesha vo APRN.SALES SERVICE COORDINATOR Work Phone: [facility] Comment on above: Returning Patient's Call Start: 08-21-2023 End: 08-21-[address] Jacob Jennings Work Phone: [facility] Work Phone: Start: 08-18-2023 Telephone encounter Kesha vo APRN.SALES SERVICE COORDINATOR Work Phone: [facility] Comment on above: Patient Update Start: 08-14-2023 Telephone encounter Francois Acevedo MD Work Phone: [facility] Start: 08-07-2023 End: 08-07-2023 Patient encounter procedure Francois Acevedo MD Work Phone: [facility] Comment on above: Metastatic cancer to brain (HCC) (Primary Dx) Start: 08-05-2023 End: 08-05-[address] Jacob Jennings Work Phone: [facility] Work Phone: Start: 08-04-2023 ambulatory UNKNOWN PROVIDER Facili ty:[facility] Start: 07-24-2023 Refill Jacob alicea DO Work Phone: [facility] Start: 07-15-2023 End: 07-15-[address] Jacob Jennings Work Phone: [facility] Work Phone: Start: 07-08-2023 End: 07-08-[address] Jacob Jennings Work Phone: [facility] Work Phone: Start: 07-07-2023 Telephone encounter Kesha Jean tavo LAB CLERK.SALES SERVICE COORDINATOR Work Phone: [facility] Comment on above: Patient Update Start: 07-03-2023 Telephone encounter Kesha Ramoncharlette vo LAB CLERK.SALES SERVICE COORDINATOR Work Phone: [facility] Comment on above: Returning Patient's Call Start: 07-01-[address] Yahir Jennings Work Phone: [facility] Start: 07-01-2023 End: 07-01-[address] Jacob Jennings Work Phone: [facility] Work Phone: Start: 07-01-2023 End: 07-01-[address] Jacob Jennings Work Phone: [facility] Work Phone: Start: 06-17-2023 End: 06-17-[address] Jacob Jennings Work Phone: [facility] Work Phone: Start: 06-09-2023 End: 06-09-2023 Patient encounter procedure Francois Acevedo MD Work Phone: [facility] Comment on above: History of cancer me tastatic to brain (Primary Dx) Start: 06-06-2023 ambulatory UNKNOWN PROVIDER Facili ty:[facility] Start: 06-06-2023 End: 06-06-2023 Subsequent hospital visit by physician [facility] (1.5t) Radiology Comment on above: History of cancer me tastatic to brain [Z85.89] Start: 05-27-2023 Telephone encounter Francois Acevedo MD Work Phone: [facility] Comment on above: Appointment Start: 05-27-2023 End: 05-27-[address] Jacob Jennings Work Phone: [facility] Work Phone: Start: 05-22-2023 Telephone encounter Pineda gutierrez MD Work Phone: [facility] Comment on above: Medical records Start: 05-21-2023 End: 05-21-[address] Jacob Jennings Work Phone: [facility] Medicine [facility] Work Phone: Start: 05-20-2023 End: 05-20-2023 Office outpatient new 45 minutes Pineda Fields MD Work Phone: [facility] Comment on above: PRES (posterior reve rsible encephalopathy syndrome) (Primary Dx) Start: 05-19-2023 End: 05-19-[address] Jacob Jennings Work Phone: [facility] Work Phone: Start: 05-06-2023 Non-patient / Non-visit Dr. Rajan Jennings Work Phone: [facility] Start: 05-06-2023 Non-patient / Non-visit Dr. Rajan Jennings Work Phone: [facility] Start: 05-06-2023 Dr. Jacob gonzalez Work Phone: [facility] Start: 05-06-2023 Non-patient / Non-visit Dr. Rajan Jennings Work Phone: [facility] Work Phone: Start: 05-06-2023 Dr. Jacob gonzalez Work Phone: [facility] Work Phone: Start: 05-05-2023 Non-patient / Non-visit Dr. Rajan Jennings Work Phone: [facility] Start: 05-05-2023 Dr. Jacob gonzalez Work Phone: [facility] Start: 05-05-2023 Non-patient / Non-visit Dr. Rajan Jennings Work Phone: [facility] Start: 05-05-2023 Dr. Jacob gonzalez Work Phone: [facility] Start: 05-05-2023 Non-patient / Non-visit Dr. Rajan Jennings Work Phone: [facility] Work Phone: Start: 05-05-2023 Dr. Jacob gonzalez Work Phone: [facility] Work Phone: Start: 05-04-2023 Non-patient / Non-visit Dr. Rajan Jennings Work Phone: [facility] Start: 05-04-2023 Dr. Jacob gonzalez Work Phone: [facility] Start: 05-04-2023 Non-patient / Non-visit Dr. Rajan Jennings Work Phone: [facility] Work Phone: Start: 05-04-2023 Dr. Jacob gonzalez Work Phone: [facility] Work Phone: Start: 05-03-2023 Non-patient / Non-visit Dr. Rajan Jennings Work Phone: [facility] Work Phone: Start: 05-03-2023 Dr. Jacob gonzalez Work Phone: [facility] Work Phone: Start: 05-03-2023 Non-patient / Non-visit Dr. Rajan Jennings Work Phone: [facility] Start: 05-03-2023 Dr. Jacob gonzalez Work Phone: [facility] Start: 05-02-2023 End: 05-06-2023 Evaluation and management of inpatient Dr. Jacob Jennings Work Phone: [facility] 3 Start: 05-02-2023 End: 05-06-2023 Dr. Jacob Jennings Work Phone: [facility] 3 Work Phone: Start: 04-28-[address] Yahir Jennings Work Phone: [facility] Start: 04-28-2023 End: 04-28-[address] Jacob Jennings Work Phone: [facility] Start: 04-28-2023 End: 04-28-2023 Dr. Jacob Jennings Work Phone: [facility] Work Phone: Start: 04-27-2023 End: 04-27-[address] Jacob Jennings Work Phone: [facility] Start: 04-27-2023 End: 04-27-2023 Dr. Jacob Jennnigs Work Phone: [facility] Work Phone: Start: 04-08-2023 End: 04-08-[address] Jacob Jennings Work Phone: [facility] Start: 04-08-2023 End: 04-08-2023 Dr. Jacob Jennings Work Phone: [facility] Work Phone: Start: 04-01-2023 End: 04-01-[address] [facility] Start: 04-01-2023 End: 04-01-2023 Dr. Jacob Jennings Work Phone: [facility] Work Phone: Start: 03-24-2023 End: 03-24-[address] Jacob Jennings Work Phone: [facility] Start: 03-24-2023 End: 03-24-2023 Dr. Jacob Jennings Work Phone: [facility] Work Phone: Start: 03-19-2023 End: 03-19-2023 Emergency department patient visit Dr. Jacob Jennings Work Phone: [facility] Start: 03-19-2023 End: 03-19-2023 Dr. Jacob Jennings Work Phone: [facility] Work Phone: Start: 03-17-[address] Yahir Jennings Work Phone: [facility] Start: 03-17-2023 End: 03-17-[address] Jacob Jennings Work Phone: [facility] Start: 03-17-2023 End: 03-17-2023 Dr. Jacob Jennings Work Phone: [facility] Work Phone: Start: 03-16-2023 End: 03-16-[address] Jacob Jennings Work Phone: [facility] Work Phone: Start: 03-16-2023 End: 03-16-[address] Jacob Jennings Work Phone: [facility] Start: 03-16-2023 End: 03-16-2023 Dr. Jacob Jennings Work Phone: [facility] Work Phone: Start: 03-13-2023 End: 03-13-2023 ambulatory Dr. Jacob Jennings Work Phone: [facility] Work Phone: Start: 03-13-2023 End: 03-13-[address] Jacob Jennings Work Phone: [facility] Start: 03-13-2023 End: 03-13-2023 Dr. Jacob Jennings Work Phone: [facility] Work Phone: Start: 03-10-2023 End: 03-10-[address] Jacob Jennings Work Phone: [facility] Start: 03-10-2023 End: 03-10-2023 Dr. Jacob Jennings Work Phone: [facility] Work Phone: Start: 02-17-2023 End: 02-17-[address] Jacob Jennings Work Phone: [facility] Start: 02-17-2023 End: 02-17-2023 Dr. Jacob Jennings Work Phone: [facility] Work Phone: Start: 01-27-2023 End: 01-27-[address] Jacob Jennings Work Phone: [facility] Start: 01-27-2023 End: 01-27-2023 Dr. Jacob Jennings Work Phone: [facility] Work Phone: Start: 01-23-2023 End: 01-23-[address] Jacob Jennings Work Phone: [facility] Start: 01-23-2023 End: 01-23-2023 Dr. Jacob Jennings Work Phone: [facility] Work Phone: Start: 01-23-2023 End: 01-23-[address] Jacob Jennings Work Phone: [facility] Start: 01-23-2023 End: 01-23-2023 Dr. Jacob Jennings Work Phone: [facility] Work Phone: Start: 01-21-2023 End: 01-21-[address] Jacob Jennings Work Phone: [facility] Work Phone: Start: 01-21-2023 End: 01-21-[address] Jacob Jennings Work Phone: [facility] Start: 01-21-2023 End: 01-21-2023 Dr. Jacob Jennings Work Phone: [facility] Work Phone: Start: 01-13-2023 Non-patient / Non-visit Dr. Rajan Jennings Work Phone: [facility] Start: 01-13-2023 End: 01-13-[address] Jacob Jennings Work Phone: [facility] Work Phone: Start: 01-13-2023 End: 01-13-[address] [facility] Start: 01-13-2023 End: 01-13-2023 Dr. Jacob Jennings Work Phone: [facility] Start: 01-06-[address] Yahir Jennings Work Phone: [facility] Start: 01-06-2023 End: 01-06-[address] Jacob Jennings Work Phone: [facility] Start: 01-06-2023 End: 01-06-2023 Dr. Jacob Jennings Work Phone: [facility] Work Phone: Start: 01-05-2023 End: 01-05-[address] [facility] Start: 01-01-2023 Telephone encounter Jacob stallworth DO Work Phone: [facility] Comment on above: Orders Start: 12-31-2022 Telephone encounter Jacob stallworth DO Work Phone: [facility] Comment on above: Orders (Carotid dopp ler/Dermatology ) Start: 12-31-2022 End: 12-31-2022 Office outpatient visit 25 minutes Jacob Jennings DO Work Phone: [facility] Comment on above: Essential hypertensi on (Primary Dx); Chronic obstructive pulmonary disease with acute exacerbation (HCC); Aortic stenosis, mild; Bruit of right carotid artery; Skin lesion of face; Hypercholesterolemia; Adenosquamous carcinoma of lung, left (HCC); 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 Rajan Jennings Work Phone: [facility] Start: 12-29-2022 End: 12-29-[address] Jacob Jennings Work Phone: [facility] Work Phone: Start: 12-29-2022 End: 12-29-[address] Jacob Jennings Work Phone: [facility]/Neu[facility] Start: 12-25-2022 Non-patient / Non-visit Dr. Rajan Jennings Work Phone: [facility] Start: 12-25-2022 End: 12-25-[address] Jacob Jennings Work Phone: [facility] Work Phone: Start: 12-25-2022 End: 12-25-[address] Jacob Jennings Work Phone: [facility] Services/Neu[facility] Start: 12-16-2022 End: 12-16-[address] Jacob Jennings Work Phone: [facility] Start: 12-16-[address] Yahir Jennings Work Phone: [facility] Start: 12-16-2022 End: 12-16-[address] Jacob Jennings Work Phone: [facility] Start: 11-25-2022 End: 11-25-[address] Jacob Jennings Work Phone: [facility] Start: 11-24-2022 End: 11-24-[address] [facility] Jennings [facility] Start: 11-21-2022 Non-patient / Non-visit Dr. Rajan Jennings Work Phone: [facility] Start: 11-20-2022 Non-patient / Non-visit Dr. Rajan Jennings Work Phone: [facility] Start: 11-19-2022 End: 11-21-2022 Evaluation and management of inpatient Dr. Jacob Jennings [facility] Start: 11-17-2022 ambulatory [facility] Start: 11-17-2022 Patient encounter procedure [facility] Start: 11-17-2022 End: 11-17-2022 Office outpatient visit 15 minutes Gaby Montiel NP Work Phone: [facility] Comment on above: Chronic obstructive pulmonary disease with acute exacerbation (HCC) (Primary Dx) Start: 11-13-[address] Yahir Jennings Work Phone: [facility] Start: 11-13-2022 End: 11-13-[address] Jacob Jennings Work Phone: [facility] Start: 11-04-2022 End: 11-04-[address] Jacob Jennings Work Phone: [facility] Start: 10-16-2022 End: 11-28-2022 ambulatory KINSEY KING MD Facility:A Start: 10-16-2022 End: 11-28-2022 Radiation Therapy KINSEY KING MD [facility] Start: 10-15-2022 End: 10-15-[address] Jacob Jennings Work Phone: [facility] Start: 10-14-2022 End: 10-14-[address] Jacob Jennings Work Phone: [facility] Work Phone: Start: 10-14-2022 End: 10-14-[address] Jacob Jennings Work Phone: [facility] Start: 10-14-[address] Yahir Jennings Work Phone: [facility] Start: 10-14-2022 End: 10-14-[address] Jacob Jennings Work Phone: [facility] Start: 09-23-2022 End: 09-23-[address] Jacob Jennings Work Phone: [facility] Start: 09-11-2022 End: 09-11-[address] Jacob Jennings Work Phone: [facility] Start: 09-08-2022 End: 09-08-[address] Jacob Jennings Work Phone: [facility] Work Phone: Start: 09-08-2022 End: 09-08-[address] Jacob Jennings Work Phone: [facility] Start: 09-02-[address] Yahir Jennings Work Phone: [facility] Start: 09-02-2022 End: 09-02-[address] Jacob Jennings Work Phone: [facility] Start: 08-12-2022 End: 08-12-[address] Jacob Jennings Work Phone: [facility] Start: 08-01-2022 End: 08-01-[address] Jacob Jennings Work Phone: [facility] Start: 07-22-2022 End: 07-22-[address] Jacob Jennings Work Phone: [facility] Start: 07-15-2022 End: 07-15-[address] Jacob Jennings Work Phone: [facility] Start: 07-15-2022 End: 07-15-[address] Jacob Jennings Work Phone: [facility] Start: 06-24-2022 End: 06-24-[address] Jacob Jennings Work Phone: [facility] Start: 06-03-2022 End: 06-03-[address] Jacob Jennings Work Phone: [facility] Start: 05-27-2022 End: 05-27-[address] Jacob Jennings Work Phone: [facility] Start: 03-11-[address] Yahir Jennings Work Phone: [facility] Start: 03-11-2022 End: 03-11-[address] Jacob Jennings Work Phone: [facility] Start: 03-04-2022 End: 03-04-[address] Jacob Jennings Work Phone: [facility] Start: 02-21-2022 End: 02-21-[address] Jacob Jennings Work Phone: [facility] Start: 02-18-2022 End: 02-18-[address] Jacob Jennings Work Phone: [facility] Start: 01-28-2022 End: 01-28-[address] Jacob Jennings Work Phone: [facility] Start: 01-07-2022 End: 01-07-[address] Jacob Jennings Work Phone: [facility] Start: 12-17-2021 End: 12-17-[address] Jacob Jennings Work Phone: [facility] Start: 12-03-2021 End: 12-03-[address] Jacob Jennings Work Phone: [facility] Start: 11-26-2021 End: 11-26-[address] Jacob Jennings Work Phone: [facility] Start: 11-19-2021 End: 11-19-[address] Jacob Jennings Work Phone: [facility] Start: 08-01-2021 End: 08-01-2021 Subsequent hospital visit by physician Esthela Montiel CNP Work Phone: [facility] Comment on above: Posterior reversible encephalopathy syndrome; Unspecified convulsions (HCC); PRES (posterior reversible encephalopathy syndrome); Seizure (HCC) Start: 06-20-2021 End: 06-20-2021 Subsequent hospital visit by physician Esthela Garcia LAB CLERK - SALES SERVICE COORDINATOR Work Phone: [facility] Comment on above: Seizure (HCC) Start: 05-15-2021 End: 05-17-2021 Evaluation and management of inpatient Tono Birch MD Work Phone: [facility] 3W TELEMETRY Comment on above: Ataxia (Primary Dx); Hypertension, unspecified type; Encephalopathy; Vision loss; Aphasia; Seizure (HCC) Start: 03-12-2021 End: 03-15-2021 Evaluation and management of inpatient Anaid Zee MD Work Phone: [facility] Comment on above: Adenosquamous carcin marleen of lung, left (HCC) (Primary Dx) Start: 02-20-2021 End: 02-20-2021 Subsequent hospital visit by physician Jose Miguel Fotser Work Phone: [facility] General Surgery Comment on above: Arrived Start: [...] Bacteria identified in Blood by Culture Tono iBrch MD Work Phone: Start: 08-19-2025 Basic metabolic [...] 06-15-2025 Serum inorganic phosphate measurement Dr. Jacob Jennnigs DO Work Phone: Start: 06-15-2025 Total iron [...] Mean corpuscular hemoglobin concentration determination Dr. Jacob Jenninsg DO Work Phone: Start: 03-29-2025 Nucleated red blood cell count procedure Dr. Jacob Jennings DO Work Phone: Start: 03-29-2025 Platelet mean volume determination Dr. Carroll Jeninngs DO Work Phone: Start: 03-29-2025 Estimated creatinine [...] 03-24-2025 Platelet mean volume determination Dr. Carroll Jennings DO Work Phone: Start: 03-23-2025 Nucleated red blood cell count procedure Dr. Jacob Jennings DO Work Phone: Start: 03-22-[address] Jacob zaragoza DO Work Phone: Start: 03-21-2025 Bacterial nucleic acid assay Dr. Jaocb Jennings DO Work Phone: Start: 03-21-2025 Gram [...] Start: 12-16-2024 Platelet mean volume determination Dr. Carroll Jennings DO Work Phone: Start: 12-15-2024 Albumin/Globulin [...] brain stem w/o w/contrast material Kesha Fegatelli LAB CLERK.SALES SERVICE COORDINATOR Work Phone: Start: 10-20-2024 Follow-up visit Follow-up JACOB JENNINGS Start: 10-20-2024 Adult depression screening assessment Jacob Jennings DO Work Phone: Start: 10-18-[address] Jacob lovett DO Work Phone: Start: 10-18-[address] Jacob gonzalez DO Work Phone: Start: 05-17-2024 Mri brain brain stem w/o w/contrast material Kesha Fegatelli LAB CLERK.SALES SERVICE COORDINATOR Work Phone: Start: 03-09-2024 X-ray of cervical [...] brain stem w/o w/contrast material Kesha Fegatelli LAB CLERK.SALES SERVICE COORDINATOR Work Phone: Start: 01-15-2024 X-ray of cervical [...] CT of chest and abdomen Dr. Jacob laicea Work Phone: Start: 09-02-2023 CT angiography of [...] brain stem w/o w/contrast material Esthela Garcia LAB CLERK - SALES SERVICE COORDINATOR Work Phone: Start: 05-17-2021 Ecg routine ecg w/least 12 lds w/i&r Carine Morin MD Work Phone: Start: 05-17-2021 Hemoglobin glycosylated a1c Carine lieberman MD Work Phone: Start: 05-16-2021 Speech and language therapy regime Anthony Morin MD Work Phone: Start: 05-16-2021 EEG Celsa Wu LAB CLERK - SALES SERVICE COORDINATOR Work Phone: Start: 05-16-2021 Echo tthrc r-t 2d w/wom-mode compl spec&colr d Celsa Wu LAB CLERK - SALES SERVICE COORDINATOR Work Phone: Start: 05-16-2021 Mri brain brain stem w/o w/contrast material Celsa Wu LAB CLERK - SALES SERVICE COORDINATOR Work Phone: Start: 05-16-2021 Assay of magnesium Carine Morin MD Work Phone: Start: 05-16-2021 BASIC METABOLIC PANEL W/ REFLEX TO MG FOR LOW K Carine Morin MD Work Phone: Start: 05-16-2021 Radiologic exam abdomen 1 view Carine Morin MD Work Phone: Start: 05-16-2021 Hemoglobin glycosylated a1c Celsa harvey LAB CLERK [facility] Work Phone: Start: 05-16-2021 Lipid panel Celsa Wu [facility] [employer] [facility] Work Phone: Start: 05-15-2021 Blood count complete automated Tono Birch MD Work Phone: Start: 05-15-2021 Speech and language therapy regime Mikayla Wu LAB CLERK [employer] [facility] Work Phone: Start: 05-15-2021 Ct head/brain [...] exam chest single view Merlene J ackson LAB CLERK - SALES SERVICE COORDINATOR Work Phone: Start: 03-14-2021 Radiologic exam chest single view Merlene J ackson LAB CLERK - SALES SERVICE COORDINATOR Work Phone: Start: 03-13-2021 Radiologic exam chest single view Merlene J ackson LAB CLERK - SALES SERVICE COORDINATOR Work Phone: Start: 03-13-2021 Blood count complete automated Merlene raphael LAB CLERK - SALES SERVICE COORDINATOR Work Phone: Start: 03-12-2021 Radiologic exam chest single view Merlene J ackson LAB CLERK - SALES SERVICE COORDINATOR Work Phone: Start: 03-12-2021 OPERATIVE REPORT 3m Scanning Start: 03-12-2021 Radiologic exam chest single view Megha Don LAB CLERK - SALES SERVICE COORDINATOR Work Phone: Start: 03-12-2021 Antibody screen Anaid Zee MD Work Phone: Start: 03-12-2021 Blood typing serologic abo Dawit Nava O Work Phone: Start: 03-12-2021 Comprehensive metabolic panel Dawit rey DO Work Phone: Start: 03-12-2021 Ecg routine ecg w/least 12 lds w/i&r Megha Don LAB CLERK - SALES SERVICE COORDINATOR Work Phone: Start: 02-20-2021 OPERATIVE REPORT 3m [...] Dr. Thien Sandoval MD Comment on above: [id number] w/ 2.25 x 18 mm Biodivysio Stent [...] DTaP/Tdap/Td Vaccines (2 - Td or Tdap) [facility] Start: 02-21-2029 Colon cancer screen colonoscopy Colon cancer screen colonoscopy [place], [place] Start: 02-21-2029 Screening for malignant neoplasm of colon Colon cancer screen colonoscopy [place], [place] Start: 01-08-2029 Lipid panel [facility] Start: 2028 RSV Vaccine (1 - 1-dose 75+ series) RSV Vaccine (1 - 1-dose 75+ series) [facility] Start: 12-30-2027 Diabetes Screening Diabetes Screening [facility] Start: 01-06-2027 Lipid 1996 panel - Serum or Plasma Lipid Screening [facility] Start: 01-06-2027 Lipid panel [facility] Start: 09-07-2026 Creatinine measurement Creatinine Level [facility] Start: 09-07-2026 Depression Screening Depression Screening [facility] Start: 09-07-2026 Diabetes: Estimated Glomerular Filtration Rate for Kidney Health Diabetes: Estimated Glomerular Filtration Rate for Kidney Health [facility] Start: 09-07-2026 Lipid panel Lipid Panel [facility] Start: 09-07-2026 Potassium measurement Potassium Level [facility] Start: 08-19-2026 Creatinine measurement Creatinine Level [facility] Start: 08-19-2026 Diabetes: Estimated Glomerular Filtration Rate for Kidney Health Diabetes: Estimated Glomerular Filtration Rate for Kidney Health [facility] Start: 08-19-2026 Potassium measurement Potassium Level [facility] Start: 05-18-2026 Medicare Annual Wellness (AWV) Medicare Annual Wellness (AWV) [facility] Start: 04-19-2026 End: 04-19-2026 Patient encounter procedure 04/19/2026 10:20 AM EDT Office Visit [facility] [address] [place] [address] Celsa Jacobs, LEXI - SALES SERVICE COORDINATOR [address] [place] [address] [facility] Start: 04-18-2026 Depression Screening Depression Screening [facility] Start: 02-21-2026 Depression Screening Depression Screening [facility] Start: 12-30-2025 Creatinine measurement Creatinine Level [facility] Start: 12-30-2025 Diabetes: Estimated Glomerular Filtration Rate for Kidney Health Diabetes: Estimated Glomerular Filtration Rate for Kidney Health [facility] Start: 12-30-2025 Potassium measurement Potassium Level [facility] Start: 11-17-2025 End: 11-17-2025 Patient encounter procedure 11/17/2025 10:30 AM EST Office Visit [facility] [address] [facility] [place] [id number] Francois Acevedo MD [address] [place] [address] 6 mon fu with MRI [facility] Comment on above: 6 mon fu with MRI Start: 11-13-2025 End: 11-13-2025 Patient encounter procedure 11/13/2025 11:00 AM EST Appointment Radiology [address] [place] [address] MRI BRAIN WO/W IVCON Radiology Comment on above: MRI BRAIN WO/W IVCON Start: 10-20-2025 Depression Screening Depression Screening [facility] Start: 09-29-2025 End: 09-29-2025 Clinical Support 09/29/2025 11:00 AM EST Clinical Support [facility] [address] [facility] [place] [address] [facility] Start: 09-14-2025 End: 09-14-2025 Clinical Support 09/14/2025 11:30 AM EST Clinical Support [facility] [address] [facility] [place] [address] [facility] Start: 09-07-2025 End: 09-07-2025 Patient encounter procedure 09/07/2025 2:30 PM EDT Office Visit [facility] [address] [facility] [place] [address] Eleuterio Hatch MD [address] [place] [address] [place] [address] [facility] Start: 09-07-2025 End: 09-07-2026 Comprehensive metabolic 1998 panel - Serum or Plasma Comprehensive metabolic panel Lab Routine Screening for diabetes mellitus Expected: 09/07/2025 (Approximate), Expires: 09/07/2026 [facility] Work Phone: Comment on above: Expected: 09/07/2025 (Approximate), Expi res: 09/07/2026 Start: 09-07-2025 End: 09-07-2026 Lipid 1996 panel - Serum or Plasma Lipid panel Lab Routine Hypercholesterolemia Expected: 09/07/2025 (Approximate), Expires: 09/07/2026 [facility] Comment on above: Expected: 09/07/2025 (Approximate), Expi res: 09/07/2026 Start: 09-07-2025 End: 09-07-2026 PSA Total (Screening) PSA Total (Screening) Lab Routine Elevated PSA Screening for prostate cancer Expected: 09/07/2025 (Approximate), Expires: 09/07/2026 [facility] Comment on above: Expected: 09/07/2025 (Approximate), Expi res: 09/07/2026 Start: 09-06-2025 Serum inorganic phosphate measurement [facility] Start: 09-06-2025 [facility] Start: 08-24-2025 End: 08-24-2025 [facility] Work Phone: Start: 08-22-2025 Patient discharge [facility] Start: 08-20-2025 Consultation [facility] Start: 08-19-2025 Ambulation without limitation [facility] Start: 08-19-2025 Assessment of risk of venous thromboembolism [facility] Start: 08-19-2025 Insertion of catheter into peripheral vein [facility] Start: 08-19-2025 Oxygen therapy [facility] Start: 08-19-2025 Providing care according to standard [facility] Start: 08-19-2025 [facility] Start: 08-19-2025 Admission procedure [facility] Start: 08-19-2025 Following clinical pathway protocol [facility] Start: 08-19-2025 Venous catheter care management [facility] Start: 08-19-2025 Inhalation therapy procedure [facility] Start: 08-16-2025 T4 free measurement [facility] Start: 08-16-2025 Thyroid stimulating hormone measurement [facility] Start: 08-16-2025 [facility] Start: 07-26-2025 Thyroid stimulating hormone measurement [facility] Start: 07-26-2025 [facility] Start: 07-18-2025 End: 07-18-2025 Patient encounter procedure [facility] Start: 07-10-2025 COVID-19 Vaccine (7 - 2025-26 season) COVID-19 Vaccine ( season) [facility] Start: 07-10-2025 Influenza vaccination Influenza Vaccine (#1) [facility] Start: 07-05-2025 [facility] Start: 06-28-2025 Venous catheter care management [facility] Start: 06-15-2025 [facility] Start: 06-15-2025 [facility] Start: 05-24-2025 [facility] Start: 05-23-2025 End: 05-23-2025 Patient encounter procedure 05/23/2025 11:00 AM EDT Office Visit [facility] [address] [place] [id number] Francois Acevedo MD [address] [facility] [place] [place] [address] 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] [facility] Comment on above: Secondary malignant neoplasm of brain (H CC) [C79.31] Start: 05-18-2025 End: 05-18-2025 Patient encounter procedure 05/18/2025 11:00 AM EDT Appointment Radiology [address] [place], [place] [id number] 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] Radiology Comment on above: Secondary malignant neoplasm of brain (H CC) [C79.31] Start: 05-02-2025 [facility] Start: 05-02-2025 [facility] Start: 04-20-2025 End: 04-20-2025 Patient encounter procedure 04/20/2025 1:00 PM EDT Office Visit [facility] [place] [address] [place] [address] Jacob Jennings DO [address] [place] [address] [facility] [place] Start: 04-18-2025 End: 04-18-2025 Patient encounter procedure 04/18/2025 3:40 PM EDT Office Visit [facility] [place] [address] [place] [id number] Jacob Jennings, DO [address] [place] [address] [facility] [place] Start: 04-18-2025 End: 04-18-2025 Patient encounter procedure 04/18/2025 2:20 PM EDT Office Visit [facility] [place] [address] [place] [address] Jacob Jennings, DO [address] [place] [address] [facility] [place] Start: 04-12-2025 [facility] Start: 03-29-2025 CBC W Auto Differential panel - Blood [facility] Start: 03-29-2025 [facility] Start: 03-24-2025 Patient discharge [facility] Start: 03-22-2025 [facility] Start: 03-22-2025 Patient referral to [facility] Start: 03-22-2025 Referral to service [facility] Start: 03-21-2025 Following clinical pathway protocol [facility] Start: 03-21-2025 Assessment of risk of venous thromboembolism [facility] Start: 03-21-2025 Fall prevention [facility] Start: 03-21-2025 Insertion of catheter into peripheral vein [facility] Start: 03-21-2025 Introduction of urinary catheter [facility] Start: 03-21-2025 Measuring intake and output [facility] Start: 03-21-2025 Methicillin resistant Staphylococcus aureus screening test [facility] Start: 03-21-2025 Oxygen therapy [facility] Start: 03-21-2025 Patient referral to [facility] Start: 03-21-2025 Providing care according to standard [facility] Start: 03-21-2025 Provision of activity privileges [facility] Start: 03-21-2025 Referral to gastroenterology service [facility] Start: 03-21-2025 Referral to occupational therapist [facility] Start: 03-21-2025 Referral to service [facility] Start: 03-21-2025 Speech therapy assessment [facility] Start: 03-21-2025 [facility] Start: 03-21-2025 Hospital admission, emergency, from emergency room, medical nature [facility] Start: 03-21-2025 Admission procedure [facility] Start: 03-21-2025 Respiratory microbial culture [facility] Start: 03-21-2025 Inhalation therapy procedure [facility] Start: 03-21-2025 Patient referral to dietitian [facility] Start: 01-18-2025 Patient discharge [facility] Start: 01-18-2025 Referral to service [facility] Start: 01-16-2025 [facility] Start: 01-14-2025 Inhalation therapy procedure [facility] Start: 01-12-2025 End: 01-13-2025 [facility] Start: 01-12-2025 Preparation of bowel for procedure [facility] Start: 01-12-2025 Continuous pulse oximetry [facility] Start: 01-12-2025 Attention to flatus tube [facility] Start: 01-12-2025 Continuous positive airway pressure ventilation treatment [facility] Start: 01-12-2025 Dual pressure spontaneous ventilation support [facility] Start: 01-11-2025 [facility] Start: 01-11-2025 Referral to gastroenterology service [facility] Start: 01-10-2025 End: 01-11-2025 [facility] Start: 01-10-2025 Following clinical pathway protocol [facility] Start: 01-10-2025 Venous catheter care management [facility] Start: 01-10-2025 Ambulation without limitation [facility] Start: 01-10-2025 Assessment of risk of venous thromboembolism [facility] Start: 01-10-2025 Insertion of catheter into peripheral vein [facility] Start: 01-10-2025 Oxygen therapy [facility] Start: 01-10-2025 Providing care according to standard [facility] Start: 01-10-2025 Referral to occupational therapist [facility] Start: 01-10-2025 Referral to service [facility] Start: 01-10-2025 Admission procedure [facility] Start: 01-10-2025 Patient referral to dietitian [facility] Start: 01-08-2025 Lipid panel Lipid Panel [facility] Start: 01-07-2025 Emergency dept visit high severity&threat funcj [facility] Start: 01-07-2025 Iv infusion hydration initial 31 min-1 hour [facility] Start: 01-07-2025 [facility] Start: 01-06-2025 Diabetes Screening Diabetes Screening [facility] Start: 12-30-2024 End: 12-30-2025 CBC W Auto Differential panel - Blood CBC auto differential Lab STAT Nausea Expected: 12/30/2024 (Approximate), Expires: 12/30/2025 [facility] Work Phone: Comment on above: Expected: 12/30/2024 (Approximate), Expi res: 12/30/2025 Start: 12-30-2024 End: 12-30-2025 Comprehensive metabolic 1998 panel - Serum or Plasma Comprehensive metabolic panel Lab STAT Nausea Expected: 12/30/2024 (Approximate), Expires: 12/30/2025 [facility] Comment on above: Expected: 12/30/2024 (Approximate), Expi res: 12/30/2025 Start: 12-30-2024 End: 12-30-2025 Lipase [Enzymatic activity/volume] in Serum or Plasma Lipase Lab STAT Nausea Expected: 12/30/2024 (Approximate), Expires: 12/30/2025 [facility] Comment on above: Expected: 12/30/2024 (Approximate), Expi res: 12/30/2025 Start: 12-30-2024 End: 12-30-2024 Patient encounter procedure 12/30/2024 10:00 AM EST Office Visit [facility] [place] [address] [place] [address] Jacob Jennings DO [address] [place] [id number] [facility] Start: 12-16-2024 End: 12-16-2024 Venous catheter care management [facility] Start: 12-16-2024 Patient discharge [facility] Start: 12-15-2024 [facility] Start: 12-15-2024 Incentive spirometry [facility] Start: 12-14-2024 Following clinical pathway protocol [facility] Start: 12-14-2024 Assessment of risk of venous thromboembolism [facility] Start: 12-14-2024 Care regimes management [facility] Start: 12-14-2024 Inhalation therapy procedure [facility] Start: 12-14-2024 Insertion of catheter into peripheral vein [facility] Start: 12-14-2024 Introduction of urinary catheter [facility] Start: 12-14-2024 Measuring intake and output [facility] Start: 12-14-2024 Notification of physician [facility] Start: 12-14-2024 Oxygen therapy [facility] Start: 12-14-2024 Providing care according to standard [facility] Start: 12-14-2024 Provision of activity privileges [facility] Start: 12-14-2024 Referral to service [facility] Start: 12-14-2024 End: 12-14-2024 [facility] Start: 12-14-2024 Admission procedure [facility] Start: 12-14-2024 Venous catheter care management [facility] Start: 12-14-2024 Patient referral to dietitian [facility] Start: 11-18-2024 End: 11-18-2024 Patient encounter procedure 11/18/2024 10:00 AM EST Office Visit [facility] [address] [place] [id number] Francois Acevedo MD [address] [place] [address] 6 month f/u, MRI done 11/11 [facility] Comment on above: 6 month f/u, MRI done 11/11 Start: 11-11-2024 End: 11-11-2024 Patient encounter procedure Radiology Comment on above: Metastatic cancer to brain (HCC) [C79.31 ]; 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] Start: 11-09-2024 Advance Directive Discussion Advance Directive Discussion [facility] Start: 10-20-2024 End: 10-20-2024 Patient encounter procedure [facility] Start: 10-19-2024 End: 04-19-2025 Comprehensive metabolic 1998 panel - Serum or Plasma Comprehensive metabolic panel Lab Routine Essential hypertension Expected: 10/19/2024 (Approximate), Expires: 04/19/2025 [facility] Work Phone: Comment on above: Expected: 10/19/2024 (Approximate), Expi res: 04/19/2025 Start: 10-19-2024 End: 04-19-2025 Lipid 1996 panel - Serum or Plasma Lipid panel Lab Routine Coronary artery disease involving swinomish coronary artery of swinomish heart without angina pectoris Expected: 10/19/2024 (Approximate), Expires: 04/19/2025 [facility] Comment on above: Expected: 10/19/2024 (Approximate), Expi res: 04/19/2025 Start: 10-19-2024 End: 04-19-2025 PSA Total (Screening) PSA Total (Screening) Lab Routine Prostate cancer screening Expected: 10/19/2024 (Approximate), Expires: 04/19/2025 [facility] Comment on above: Expected: 10/19/2024 (Approximate), Expi res: 04/19/2025 Start: 07-10-2024 Covid-19 Vaccine ( season) Covid-19 Vaccine ( season) [facility] Start: 07-10-2024 COVID-19 Vaccine ( season) COVID-19 Vaccine ( season) [facility] Start: 07-10-2024 Influenza vaccination Influ[facility] Start: 07-07-2024 End: 07-07-2024 Patient encounter procedure 07/07/2024 2:00 PM EDT Office Visit [facility] Medicine [address] [place] [address] Jacob Jennings DO [address] [place] [address] [place] [address] [facility] Start: 06-13-2024 Lipid screen Lipid screen [facility] Start: 05-20-2024 End: 05-20-2024 Patient encounter procedure 05/20/2024 10:15 AM EDT Office Visit [facility] [address] [place] [id number] Francois Acevedo MD [address] [place] [address] 3 month follow up MRI 05/17 [facility] Comment on above: 3 month follow up MRI 05/17 Start: 05-17-2024 End: 05-17-2024 Patient encounter procedure [facility] Comment on above: port access / MRI ER ENTRANCE - [facility] MRI BRAIN WWO IVCON Metastatic cancer to brain (HCC) [C79.31] *SCHEDULED W/ LALO IN OFFICE *PT NEED PORT ACCESS FOR IV, SEE Start: 04-19-2024 End: 04-19-2024 Patient encounter procedure 04/19/2024 1:30 PM EDT Office Visit [facility] [address] [place] [address] Jacob Jennings DO [address] [place] [address] [facility] Start: 03-09-2024 Patient discharge [facility] Start: 03-08-2024 [facility] Start: 03-08-2024 Following clinical pathway protocol [facility] Start: 03-08-2024 Application of intermittent pneumatic compression device [facility] Start: 03-08-2024 Care of equipment and devices [facility] Start: 03-08-2024 Catheterization of vein [facility] Start: 03-08-2024 Following clinical pathway protocol [facility] Start: 03-08-2024 Incentive spirometry [facility] Start: 03-08-2024 Introduction of urinary catheter [facility] Start: 03-08-2024 Measuring intake and output [facility] Start: 03-08-2024 Neurovascular assessment [facility] Start: 03-08-2024 Patient education [facility] Start: 03-08-2024 Procedure discontinued [facility] Start: 03-08-2024 Provision of activity privileges [facility] Start: 03-08-2024 Taking patient vital signs [facility] Start: 03-08-2024 [facility] Start: 03-08-2024 Admission procedure [facility] Start: 03-08-2024 Consultation [facility] Start: 03-08-2024 Referral to occupational therapist [facility] Start: 03-08-2024 Referral to service [facility] Start: 03-02-2024 [facility] Start: 02-22-2024 Colonoscopy COLONOSCOPY [facility] Start: 02-22-2024 COLORECTAL CANCER SCREENING COLORECTAL CANCER SCREENING [facility] Start: 02-22-2024 Screening for malignant neoplasm of colon [facility] Start: 01-13-2024 Venous catheter care management [facility] Start: 01-07-2024 End: 01-06-2025 Lipid 1996 panel - Serum or Plasma Lipid panel Lab Routine Hypercholesterolemia Expected: 01/07/2024 (Approximate), Expires: 01/06/2025 [facility] Work Phone: Comment on above: Expected: 01/07/2024 (Approximate), Expi res: 01/06/2025 Start: 01-07-2024 End: 01-07-2024 Patient encounter procedure 01/07/2024 2:00 PM EST Office Visit [facility] Family [facility] [address] [place] [address] Jacob Jennings DO [address] [place] [address] [place] [address] [facility] Start: 01-07-2024 End: 01-06-2025 PSA screening PSA Screening Lab Routine Prostate cancer screening Expected: 01/07/2024 (Approximate), Expires: 01/06/2025 [facility] Comment on above: Expected: 01/07/2024 (Approximate), Expi res: 01/06/2025 Start: 01-06-2024 Venous catheter care management [facility] Start: 11-09-2023 Advance Directive Discussion Advance Directive Discussion [facility] Start: 11-09-2023 Behavioral Health Screening Behavioral Health Screening [facility] Start: 10-18-2023 Venous catheter care management [facility] Start: 10-18-2023 [facility] Start: 10-07-2023 Venous catheter care management [facility] Start: 10-05-2023 Venous catheter care management [facility] Start: 09-02-2023 Venous catheter care management [facility] Start: 07-10-2023 Covid-19 Vaccine ( season) Covid-19 Vaccine ( season) [facility] Start: 07-10-2023 COVID-19 Vaccine ( season) COVID-19 Vaccine ( season) [facility] Start: 07-10-2023 Influenza vaccination [facility] Start: 07-08-2023 Patient referral [facility] Work Phone: Start: 07-01-2023 End: 07-01-2023 Patient encounter procedure [facility] Start: 07-01-2023 Venous catheter care management [facility] Start: 05-06-2023 Venous catheter care management [facility] Start: 05-06-2023 Patient discharge [facility] Start: 05-04-2023 End: 05-05-2023 [facility] Start: 05-04-2023 Oxygen therapy [facility] Start: 05-04-2023 [facility] Start: 05-03-2023 Referral to gastroenterology service [facility] Start: 05-02-2023 Following clinical pathway protocol [facility] Start: 05-02-2023 Ambulation without limitation [facility] Start: 05-02-2023 Assessment of risk of venous thromboembolism [facility] Start: 05-02-2023 Care regimes management [facility] Start: 05-02-2023 Catheterization of vein [facility] Start: 05-02-2023 Consultation [facility] Start: 05-02-2023 Inhalation therapy procedure [facility] Start: 05-02-2023 Insertion of catheter into peripheral vein [facility] Start: 05-02-2023 Physiotherapy of chest [facility] Start: 05-02-2023 Providing care according to standard [facility] Start: 05-02-2023 Referral to service [facility] Start: 05-02-2023 [facility] Start: 05-02-2023 Measurement of occult blood in stool specimen using immunoassay [facility] Start: 05-02-2023 Respiratory pathogens DNA and RNA panel - Respiratory specimen by DAVID with probe detection [facility] Start: 05-02-2023 Verification routine [facility] Start: 05-02-2023 Admission procedure [facility] Start: 05-02-2023 End: 05-02-2023 Blood culture [facility] Start: 05-02-2023 End: 05-02-2023 [facility] Start: 05-02-2023 Patient referral to dietitian [facility] Start: 04-27-2023 Patient referral [facility] Work Phone: Start: 04-04-2023 Screening for malignant neoplasm of colon [facility] Start: 01-21-2023 Venous catheter care management [facility] Start: 01-21-2023 Venous catheter care management [facility] Start: 01-06-2023 Creatinine measurement Creatinine Level [facility] Start: 01-06-2023 Diabetes: Estimated Glomerular Filtration Rate for Kidney Health Diabetes: Estimated Glomerular Filtration Rate for Kidney Health [facility] Start: 01-06-2023 Lipid panel Lipid Panel [facility] Start: 01-06-2023 Potassium measurement Potassium Level [facility] Start: 01-06-2023 [facility] Start: 12-31-2022 End: 12-31-2023 Lipid 1996 panel - Serum or Plasma Lipid panel Lab Routine Hypercholesterolemia Expected: 12/31/2022 (Approximate), Expires: 12/31/2023 [facility] [employer] Work Phone: Comment on above: Expected: 12/31/2022 (Approximate), Expi res: 12/31/2023 Start: 12-31-2022 End: 12-31-2022 Patient encounter procedure 12/31/2022 Office Visit Family Medicine Jacob Jennings, DO [address] [place] [address] [facility] Start: 12-16-2022 Venous catheter care management [facility] Start: 11-21-2022 Patient discharge [facility] Start: 11-21-2022 Inhalation therapy procedure [facility] Start: 11-20-2022 Incentive spirometry [facility] Start: 11-20-2022 Physiotherapy of chest [facility] Start: 11-19-2022 Following clinical pathway protocol [facility] Start: 11-19-2022 Venous catheter care management [facility] Start: 11-19-2022 Assessment of risk of venous thromboembolism [facility] Start: 11-19-2022 Insertion of catheter into peripheral vein [facility] Start: 11-19-2022 Oxygen therapy [facility] Start: 11-19-2022 Providing care according to standard [facility] Start: 11-19-2022 Provision of activity privileges [facility] Start: 11-19-2022 Referral to occupational therapist [facility] Start: 11-19-2022 Referral to service [facility] Start: 11-19-2022 [facility] Start: 11-19-2022 Legionella pneumophila Ag [Presence] in Urine [facility] Work Phone: Start: 11-19-2022 Streptococcus pneumoniae antigen assay [facility] Work Phone: Start: 11-19-2022 Verification routine [facility] Work Phone: Start: 11-19-2022 Admission procedure [facility] Start: 11-09-2022 ADVANCE DIRECTIVE DISCUSSION ADVANCE DIRECTIVE DISCUSSION [facility] Start: 01-01-2023 DEPRESSION ASSESSMENT DEPRESSION ASSESSMENT [facility] Start: 10-15-2022 Patient referral [facility] Work Phone: Start: 08-21-2022 Diabetes: Urine Albumin-Creatinine Ratio for Kidney Health Diabetes: Urine Albumin-Creatinine Ratio for Kidney Health [facility] Start: 07-10-2022 Influenza vaccination Influenza Vaccine (#1) [facility] Start: 05-17-2022 Diabetes mellitus screening Diabetes Screening [facility] Start: 05-17-2022 Hemoglobin A1c measurement Diabetes: Hemoglobin A1C [facility] Start: 05-16-2022 Creatinine measurement Creatinine monitoring [facility] Work Phone: Start: 05-16-2022 Lipid panel Lipid screen [facility] Work Phone: Start: 05-16-2022 Potassium monitoring Potassium monitoring [facility] Work Phone: Start: 03-15-2022 Creatinine measurement Creatinine monitoring [facility] Work Phone: Start: 03-15-2022 Potassium monitoring Potassium monitoring [facility] Work Phone: Start: 02-14-2022 Screening for malignant neoplasm of lung Low dose CT lung screening [employer] Work Phone: Start: 01-28-2022 Screening for malignant neoplasm of lung Low dose CT lung screening [employer] Work Phone: Start: 01-27-2022 COVID-19 Vaccine (4 - Booster) COVID-19 Vaccine (4 - Booster) [facility] Start: 01-27-2022 COVID-19 VACCINE (4 - Moderna series) COVID-19 VACCINE (4 - Moderna series) [facility] Start: 01-06-2022 End: 01-06-2022 Patient encounter procedure 01/06/2022 Office Visit Family Medicine Jacob Jennings, DO [facility] [address] [place], [place] [id number] [facility] Start: 12-17-2021 Venous catheter care management [facility] Start: 10-10-2021 Venous catheter care management [facility] Start: 08-14-2021 End: 08-14-2021 Patient encounter procedure 08/14/2021 Office Visit Neurology Jaspal Esthela LAB CLERK - SALES SERVICE COORDINATOR [address] [place] [address] [phone] [facility] [place] Start: 07-10-2021 Influenza vaccination [facility] Work Phone: Start: 07-09-2021 Venous catheter care management [facility] Start: 07-08-2021 End: 07-08-2021 Office Visit 07/08/2021 Office Visit Family Medicine Jacob Jennings, DO [address] [place] [address] [phone] [facility] Start: 07-02-2021 Creatinine measurement Creatinine monitoring [place], [place] Start: 07-02-2021 Lipid panel Lipid screen [place], [place] Start: 07-02-2021 Potassium monitoring Potassium monitoring [place], [place] Start: 06-24-2021 End: 06-24-2021 Patient encounter procedure 06/24/2021 Office Visit Neurology Em Eckert MD [address] [place] [address] [phone] [facility] [place] Start: 05-24-2021 End: 05-24-2021 Patient encounter procedure 05/24/2021 Office Visit Family [facility] Jacob Jennings, DO [address] [place], [place] [id number] [facility] Start: 05-21-2021 Annual Wellness Visit (AWV) Annual Wellness Visit (AWV) [facility] Work Phone: Start: 05-07-2021 Venous catheter care management [facility] Start: 03-27-2021 End: 03-27-2021 Patient encounter procedure 03/27/2021 Office Visit Cardiothoracic Surgery Megha Don LAB CLERK - SALES SERVICE COORDINATOR [address] [place] [address] [phone] [facility] Start: 03-20-2021 End: 03-20-2021 Admission to same day surgery center 03/20/2021 Virtual Visit Cardiothoracic Surgery Anaid Zee MD [address] [place], [place] [phone] [facility] Start: 03-13-2021 COVID-19 Vaccine (3 - Moderna risk 3-dose series) COVID-19 Vaccine (3 - Moderna risk 3-dose series) [employer] Work Phone: Start: 03-01-2021 End: 03-01-2021 Appointment 03/01/2021 Appointment Pulmonary Function Testing Jose Miguel Foster MD [address] [place], [place] [phone] [facility] Pulm Function Test Start: 02-12-2021 COVID-19 Vaccine (2 - Moderna 2-dose series) COVID-19 Vaccine (2 - Moderna 2-dose series) [employer] Work Phone: Start: 01-28-2021 Hospital Encounter 01/28/2021 Hospital Encounter Radiology Jacob Jennings, DO [address] [place], [place] [phone] [address] Start: 12-31-2020 End: 12-31-2020 Office Visit 12/31/2020 Office Visit Family Medicine Jacob Jennings, DO [address] [place], [place] [phone] [facility] Start: 07-10-2020 Influenza vaccination Flu vaccine (#1) [place] Start: 06-13-2020 Creatinine monitoring Creatinine monitoring [place], [place] Start: 06-13-2020 Potassium monitoring Potassium monitoring [place] Start: 12-13-2019 Pneumococcal 65+ years Vaccine (2 of 2 - PPSV23) Pneumococcal 65+ years Vaccine (2 of 2 - PPSV23) [place] Start: 07-10-2019 Influenza vaccination Flu vaccine (#1) [place] Start: 2018 Pneumococcal Vaccine: 65+ (1 - PCV) Pneumococcal Vaccine: 65+ (1 - PCV) [facility] Start: 2018 PNEUMOCOCCAL: 65+ (1 - PCV) PNEUMOCOCCAL: 65+ (1 - PCV) [facility] Start: 09-09-2018 Medicare Annual Wellness Visit Medicare Annual Wellness Visit [facility] Start: 2013 RSV Immunization aged 60 or older (1 - 1-dose 60+ series) RSV Immunization aged 60 or older (1 - 1-dose 60+ series) [facility] Start: 2013 RSV Immunization for Adults (1 - Risk 60-74 years 1-dose series) RSV Immunization for Adults (1 - Risk 60-74 years 1-dose series) [facility] Start: 2013 RSV Vaccine (1 - 1-dose 60+ series) RSV Vaccine (1 - 1-dose 60+ series) [facility] Start: 01-04-2009 Lipid 1996 panel - Serum or Plasma Lipid Screening [facility] Start: 01-04-2009 LIPID SCREEN LIPID SCREEN [facility] Start: [address] lung screening Low dose CT lung screening [place], [place] Start: 2008 Screening for malignant neoplasm of lung Low dose CT lung screening [place] Start: 01-06-2007 DIABETES SCREEN DIABETES SCREEN [facility] Start: 01-06-2007 Diabetes Screening Diabetes Screening [facility] Start: 2003 Shingles Vaccine (1 of 2) Shingles Vaccine (1 of 2) [place] Start: 2003 SHINGRIX VACCINE (1 of 2) SHINGRIX VACCINE (1 of 2) [facility] Start: 2003 Zoster Vaccines (1 of 2) Zoster Vaccines (1 of 2) [facility] Start: 1998 COLOGUARD (FIT-DNA) COLOGUARD (FIT-DNA) [facility] Start: [address] COLONOGRAPHY [facility] Start: 1998 FECAL OCCULT BLOOD FECAL OCCULT BLOOD [facility] Start: 1998 Screening for malignant neoplasm of colon [facility] Start: 1998 SIGMOIDOSCOPY SIGMOIDOSCOPY [facility] Start: 1993 Diabetes screen Diabetes screen [facility] Work Phone: Start: 1972 DTaP/Tdap/Td vaccine (1 - Tdap) DTaP/Tdap/Td vaccine (1 - Tdap) [place] Start: 1972 DTaP/Tdap/Td Vaccines (1 - Tdap) DTaP/Tdap/Td Vaccines (1 - Tdap) [facility] Start: 1972 Urine microalbumin profile [facility] Start: 1971 Anxiety Screening Anxiety Screening [facility] Start: 1971 Depression Screening Depression Screening [facility] Start: 1971 Diabetes: Urine Albumin-Creatinine Ratio for Kidney Health Diabetes: Urine Albumin-Creatinine Ratio for Kidney Health [facility] Start: 1971 Hepatitis C screening Hepatitis C Screening [facility] Start: 1971 HEPATITIS C SCREENING HEPATITIS C SCREENING [facility] Start: 1968 HIV screen HIV screen [place] Start: 1965 Depression Screening Depression Screening [facility] Start: 1963 Diabetic foot examination Diabetes: Foot Exam [facility] Start: 1963 Glaucoma screening Diabetes: Retinopathy Screening [facility] Start: 1963 Preventive dental service Diabetes: Dental Exam [facility] Start: 04-02-1954 Examination of skin Derm Melanoma Skin Check [facility] Start: 1953 AAA screen AAA screen [place], [place] Start: 1953 Abdominal aortic aneurysm screening [facility] Start: 1953 ABDOMINAL AORTIC ANEURYSM SCREENING ABDOMINAL AORTIC ANEURYSM SCREENING [facility] Start: 1953 Echocardiography Echocardiogram [facility] Start: 1953 Hepatitis B Vaccines (1 of 3 - 3-dose series) Hepatitis B Vaccines (1 of 3 - 3-dose series) [facility] Start: 1953 Hepatitis C screen Hepatitis C screen [place] Start: 1953 Hepatitis C screening Hepatitis C screen [place] Start: 1953 Medicare Annual Wellness (AWV) Medicare Annual Wellness (AWV) [facility] Start: 1953 Screening for malignant neoplasm of colon [facility] Alanine aminotransfe rase [Enzymatic activity/volume] in Serum or Plasma [facility] Albumin [Mass/volume ] in Serum or Plasma [facility] Alkaline phosphatase [Enzymatic activity/volume] in Serum or Plasma [facility] Anion gap in Serum o r Plasma [facility] Bacteria identified in Blood by Culture Blood Culture [facility] Bacteria identified in Blood by Culture [employer] Work Phone: Basic metabolic 2008 panel with ionized calcium - Serum or Plasma [facility] Bilirubin, total measurement [facility] BUN/Creatinine ratio [facility] Calcium [Mass/volume ] in Serum or Plasma [facility] Carbon dioxide, tota l [Moles/volume] in Central venous blood [facility] CBC W Auto Different ial panel - Blood [facility] CBC W Auto Different ial panel - Blood [facility] Chest physiotherapy Chest physio therapy Respiratory Care Routine Daily until discontinued starting 03/12/2021 [employer] Work Phone: Comment on above: Daily until discontinued starting 2020 Comprehensive metabo lic 2000 panel - Serum or Plasma [facility] Cortisol [Mass/volum e] in Serum or Plasma [facility] Cortisol [Mass/volum e] in Serum or Plasma [facility] Creatinine [Mass/vol ume] in Serum or Plasma [facility] CT Abdomen and Pelvi s W contrast IV [facility] CT Abdomen and Pelvi s W contrast IV [facility] CT Abdomen and Pelvi s W contrast IV [facility] CT Abdomen and Pelvi s W contrast IV [facility] EKG 12 lead if not d one in the ED EKG 12 lead if not done in the ED ECG Routine 05/17/2021 6:26 AM EDT [employer] Work Phone: Erythrocyte mean corpuscular volume determination [facility] Ferritin [Mass/volum e] in Serum or Plasma [facility] Ferritin [Mass/volum e] in Serum or Plasma [facility] Ferritin [Mass/volum e] in Serum or Plasma [facility] Ferritin [Mass/volum e] in Serum or Plasma [facility] Ferritin [Mass/volum e] in Serum or Plasma [facility] Glucose [Mass/volume ] in Serum or Plasma [facility] Hematocrit [Volume Fraction] of Blood [facility] Hemoglobin [Mass/vol ume] in Blood [facility] Hemoglobin A1c/Hemoglobin.total in Blood [facility] Iron [Mass/mass] in Unspecified specimen [facility] Iron and Iron bindin g capacity panel - Serum or Plasma [facility] Iron and Iron bindin g capacity panel - Serum or Plasma [facility] Iron and Iron bindin g capacity panel - Serum or Plasma [facility] Iron and Iron bindin g capacity panel - Serum or Plasma [facility] Iron and Iron bindin g capacity panel - Serum or Plasma [facility] Iron saturation [Mas s Fraction] in Serum or Plasma [facility] Leukocytes [#/volume ] in Blood [facility] End: 06-20-2021 Levetiracetam Level Levetiracetam Level Lab Routine Seizure ([facility]) 1 Occurrences starting 06/20/2021 until 06/20/2021 [facility] Work Phone: Comment on above: 1 Occurrences starting 06/20/2021 until 06/20/2021 Levetiracetam Level Levetiraceta m Level Lab Routine Seizure ([facility]) 06/20/2021 8:19 AM EDT [facility] Work Phone: Magnesium [Mass/volu me] in Serum or Plasma [facility] Magnesium [Mass/volu me] in Serum or Plasma [facility] Magnesium measurement [facility] Magnesium measurement [facility] Magnesium measurement [facility] Magnesium measurement [facility] Magnesium measurement [facility] Mean corpuscular hemoglobin concentration determination [facility] Mean corpuscular hemoglobin determination [facility] Measurement of renal function [facility] MR Brain WO and W contrast IV [facility] End: 03-20-2025 MR Brain WO and W contrast IV MRI BRAIN WO/W IVCON Radiology Routine Metastatic cancer to brain (HCC) 1 Occurrences starting 02/19/2024 until 03/20/2025 [facility] Work Phone: Comment on above: 1 Occurrences starting 02/19/2024 until 03/20/2025 End: 06-19-2025 MR Brain WO and W contrast IV MRI BRAIN WO/W IVCON Radiology Routine Metastatic cancer to brain (HCC) Secondary malignant neoplasm of brain (HCC) 1 Occurrences starting 05/20/2024 until 06/19/2025 [facility] Work Phone: Comment on above: 1 Occurrences starting 05/20/2024 until 06/19/2025 End: 12-18-2025 MR Brain WO and W contrast IV MRI BRAIN WO/W IVCON Radiology Routine Secondary malignant neoplasm of brain (HCC) 1 Occurrences starting 11/18/2024 until 12/18/2025 [facility] Work Phone: Comment on above: 1 Occurrences starting 11/18/2024 until 12/18/2025 End: 06-22-2026 MR Brain WO and W contrast IV MRI BRAIN WO/W IVCON Radiology Routine Secondary malignant neoplasm of brain (HCC) 1 Occurrences starting 05/23/2025 until 06/22/2026 [facility] Work Phone: Comment on above: 1 Occurrences starting 05/23/2025 until 06/22/2026 End: 07-08-2024 Mri brain brain stem w/o w/contrast material MRI BRAIN WO/W IVCON Radiology Routine 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 1 Occurrences starting 06/09/2023 until 07/08/2024 [facility] Work Phone: Comment on above: 1 Occurrences starting 06/09/2023 until 07/08/2024 End: 09-05-2024 Mri brain brain stem w/o w/contrast material MRI BRAIN WO/W IVCON Radiology Routine Metastatic cancer to brain (HCC) 1 Occurrences starting 08/07/2023 until 09/05/2024 [facility] Work Phone: Comment on above: 1 Occurrences starting 08/07/2023 until 09/05/2024 Mri brain brain stem w/o w/contrast material MRI BRAIN WO/W IVCON Radiology Routine Metastatic cancer to brain (HCC) 10/19/2023 7:32 PM EST [facility] Work Phone: End: 11-18-2024 Mri brain brain stem w/o w/contrast material MRI BRAIN WO/W IVCON Radiology Routine Metastatic cancer to brain (HCC) 1 Occurrences starting 10/20/2023 until 11/18/2024 [facility] Work Phone: Comment on above: 1 Occurrences starting 10/20/2023 until 11/18/2024 Nebulizer therapy [facility] Treatment Respiratory Care Routine Every 6hr As Needed until discontinued starting 03/12/2021 [facility] Work Phone: Comment on above: Every 6hr As Needed until discontinued s tarting 03/12/2021 Neutrophil count [facility] Neutrophil percent differential count [facility] Oxygen therapy [[facility] Data Set] [facility] Work Phone: Comment on above: Daily until discontinued starting 2020 Daily until disconti nued starting 05/15/2021 Patient Education [facility] Work Phone: Patient referral [facility] Work Phone: Phase I & II - meter ed glucose Phase I & II - metered glucose Point of Care Testing Routine As Needed until discontinued starting 03/12/2021 [facility] Work Phone: Comment on above: As Needed until discontinued starting Platelets [#/volume] in Blood [facility] Potassium measurement [facility] PSA screening PSA Screening [place] b Routine Prostate cancer screening 01/09/2024 10:37 AM EST [facility] Red blood cell count [facility] Red cell distributio n width determination [facility] Respiratory microbia l culture Respiratory Culture [facility] Work Phone: Serum chloride measurement [facility] Serum inorganic phosphate measurement [facility] Serum inorganic phosphate measurement [facility] Serum inorganic phosphate measurement [facility] Sodium measurement [facility] Spirometry panel [facility] Work Phone: Comment on [...] EDT [facility] Work Phone: T4 free measurement [facility] T4 free measurement [facility] T4 free measurement [facility] T4 free measurement [facility] T4 free measurement [facility] T4 free measurement [facility] T4 free measurement [facility] Thyroid stimulating hormone measurement [facility] Thyroid stimulating hormone measurement [facility] Thyroid stimulating hormone measurement [facility] Thyroid stimulating hormone measurement [facility] Thyroid stimulating hormone measurement [facility] Thyroid stimulating hormone measurement [facility] Thyroid stimulating hormone measurement [facility] Thyroid stimulating hormone measurement [facility] Thyroid stimulating hormone measurement [facility] Total protein measurement [facility] Triiodothyronine, fr ee measurement [facility] Urea nitrogen [Mass/volume] in Serum or Plasma [facility] US Heart [facility] XR CHEST PORTABLE XR CHEST SLOANE BLE Imaging Routine Daily until discontinued starting 03/13/2021, 3 completed [facility] Work Phone: Comment on above: Daily until discontinued starting 2020, 3 completed End: 02-20-2021 XR Unlisted Fluoroscopic Procedur XR Unlisted Fluoroscopic Procedur Imaging Routine Once for 1 Occurrences starting 02/20/2021 until 02/20/2021 [facility] Work Phone: Comment on above: Once for 1 Occurrences starting 02/21/20 until 02/20/2021 XR Unlisted Fluorosc opic Procedur XR Unlisted Fluoroscopic Procedur Imaging Routine 02/20/2021 11:30 AM EDT [facility] Work Phone: [facility] Immunizations Immunization Date Immunization Notes Care Provider [facility]ory [facility] 08-19-2025 tetanus toxoid, redu carlos diphtheria toxoid, and acellular pertussis vaccine, adsorbed Tono Birch MD Work Phone: [facility] 04-18-2025 Pneumococcal Conjuga te PCV20, Pf (Prevnar 20) Jacob Jennings DO Work Phone: [facility] 08-17-2024 Influenza, adjuvanat ed, TV, PF, 65+ (FLUAD) Dr. Jacob Jennings DO Work Phone: [facility] 08-17-2024 Seasonal trivalent influenza vaccine, adjuvanted, preservative free Jacob Jennings DO Work Phone: [facility] 08-17-2024 Dr. Jacob simms DO Work Phone: [facility] 08-17-2024 influenza virus vaccine, unspecified formulation Lab/[facility] Work Phone: [facility] 09-16-2023 influenza, injectabl e, quadrivalent, preservative free Dr. Jacob Jennings Work Phone: [facility] 09-16-2023 influenza virus vaccine, unspecified formulation [facility] 08-09-2022 Influenza, high dose seasonal Dr. Jacob Jennings DO Work Phone: [facility] 08-09-2022 influenza, high dose seasonal, preservative-free Dr. Jacob Jennings Work Phone: [facility] 08-09-2022 Dr. Jacob simms DO Work Phone: [facility] 08-09-2022 influenza virus vaccine, unspecified formulation Pineda Fields MD Work Phone: [facility] 12-02-2021 Covid (Moderna) Dr. Jacob stallworth Work Phone: [facility] 12-02-2021 SARS-CoV-2, Unspecified Merlene vo RN [facility] 08-20-2021 influenza virus vaccine, unspecified formulation Merlene Andino RN [facility] 08-20-2021 influenza, injectabl e, quadrivalent, contains preservative Jacob Jennings DO Work Phone: [facility] 08-20-2021 influenza, injectabl e, quadrivalent, preservative free Dr. Jacob Jennings Work Phone: [facility] 08-20-2021 influenza, seasonal, injectable Dr. Jacob Jennings Work Phone: [facility] 02-13-2021 COVID-19, Moderna, P F, 100mcg/0.5mL Esthela Garcia LAB CLERK - SALES SERVICE COORDINATOR Work Phone: [facility] 02-13-2021 SARS-CoV-2, Unspecified Merlene vo RN [facility] 01-15-2021 COVID-19, Moderna, P F, 100mcg/0.5mL Esthela Garcia LAB CLERK - SALES SERVICE COORDINATOR Work Phone: [facility] 01-15-2021 SARS-CoV-2, Unspecified Merlene vo RN [facility] 01-02-2020 pneumococcal polysaccharide vaccine, [address] [facility] 12-13-2018 pneumococcal conjuga te vaccine, [address] [facility] 08-22-2014 influenza virus vaccine, unspecified formulation [facility] 08-22-2014 influenza, high dose seasonal, preservative-free Esthela Garcia LAB CLERK - SALES SERVICE COORDINATOR Work Phone: [facility] Work Phone: 08-22-2014 influenza, injectabl e, quadrivalent, preservative free Dr. Jacob Jennings Work Phone: [facility] 08-22-2014 influenza, seasonal, injectable Dr. Jacob Jennings Work Phone: [facility] 09-05-2009 pneumococcal polysaccharide vaccine, [address] [facility] 08-16-2009 pneumococcal Conjuga te, unspecified formulation Esthela Garcia LAB CLERK - SALES SERVICE COORDINATOR Work Phone: [facility] Work Phone: 08-16-2009 pneumococcal vaccine , unspecified formulation Dr. Jacob Jennings Work Phone: [facility] Payers Date Payer Category Payer Self-pay [id number] 2021 Unknown [id number] 2021 Medicare supplementa l policy (as second payer) [id number] 2021 Private Health Insurance [id number] .[id number]. [id number] 2021 Private Health Insurance CLI [id number]. 2.7.3.130097.315 2021 Private Health Insurance [id number] 2019 Unknown [employer] [address] [id number] 2019-Present [phone] [address] [place] [address] [id number] 1.2.840.167413.1.13.239. 2.7.3.233409.315 2018 Medicare [id number]. 1.13.680. 2.7.3.966858.315 2018 Medicare [id number] 1.2.840.928075.1.13.239. 2.7.3.444344.315 2017 Private Health Insurance [facility] PLU xxxxxxxxx 2017-Present [phone] [address] [place] [address] xxxxxxxxx 1.2.840.928109.1.13.239. 2.7.3.832907.315 1953 Unknown [id number] 2.16.840.1.895837.3.579. 2.627 Private Health Insurance [id number] Unknown [id number] 2.16.840.1.352977.3.579. 2.462 Unknown [id number] 2.16.840.1.986077.3.579. 2.462 Unknown [id number] 2.16.840.1.673435.3.579. 2.462 Unknown [id number] 2.16.840.1.320515.3.579. 2.462 Unknown [id number] 2.16.840.1.625208.3.579. 2.462 Unknown [id number] 2.16.840.1.851852.3.579. 2.462 Unknown [id number] 2.16.840.1.549980.3.579. 2.462 Unknown [id number] 2.16.840.1.618040.3.579. 2.462 Unknown [id number] 2.16840.1.243770.3.579. 2.462 Unknown [id number] 2.16840.1.058156.3.579. 2.462 Unknown [id number] 2.16840.1.908107.3.579. 2.462 Unknown [id number] 2.16840.1.716825.3.579. 2.462 Unknown [id number] 2.16.840.1.684433.3.579. 2.462 Unknown [id number] 2.16840.1.544936.3.579. 2.462 Unknown [id number] 2.16.840.1.368642.3.579. 2.462 Unknown [id number] 2.16.840.1.442559.3.579. 2.462 Unknown [id number] 2.16.840.1.583366.3.579. 2.462 Unknown [id number] 2.16.840.1.833561.3.579. 2.462 Unknown [id number] 2.16.840.1.063502.3.579. 2.462 Unknown [id number] 2.16.840.1.350426.3.579. 2.462 Unknown [id number] 2.16.840.1.084220.3.579. 2.462 Unknown [id number] 2.16.840.1.044476.3.579. 2.462 Unknown [id number] 2.16.840.1.680921.3.579. 2.462 Unknown [id number] 2.16.840.1.454088.3.579. 2.462 Unknown [id number] 2.840.1.838330.3.579. 2.462 Unknown [id number] 2.840.1.833054.3.579. 2.462 Unknown [id number] 2.840.1.870816.3.579. 2.462 Unknown [id number] 2.840.1.173213.3.579. 2.462 Unknown [id number] 2.840.1.010052.3.579. 2.462 Unknown [id number] 2.840.1.310604.3.579. 2.462 Unknown [id number] 2.840.1.354373.3.579. 2.462 Unknown [id number] 2.840.1.285862.3.579. 2.462 Unknown [id number] 2.840.1.244062.3.579. 2.462 Unknown [id number] 2.16840.1.419879.3.579. 2.462 Unknown [id number] 2.840.1.895582.3.579. 2.462 Unknown [id number] 2.16.840.1.336786.3.579. 2.462 Unknown [id number] 2.16840.1.380100.3.579. 2.462 Unknown [id number] 2.840.1.684483.3.579. 2.462 Unknown [id number] 2.16.840.1.251599.3.579. 2.462 Unknown [id number] 2.16.840.1.037791.3.579. 2.462 Unknown [id number] 2.16.840.1.573034.3.579. 2.462 Unknown [id number] 2.16.840.1.018052.3.579. 2.462 Unknown [id number] 2.16.840.1.591899.3.579. 2.462 Unknown [id number] 2.16.840.1.888703.3.579. 2.462 Unknown [id number] 2.16.840.1.864650.3.579. 2.462 Unknown [id number] 2.16.840.1.644067.3.579. 2.462 Unknown [id number] 2.16.840.1.863511.3.579. 2.462 Unknown [id number] 2.16.840.1.320605.3.579. 2.462 Unknown [id number] 2.16.840.1.116126.3.579. 2.462 Unknown [id number] 2.16.840.1.152193.3.579. 2.462 Unknown [id number] 2.16.840.1.273251.3.579. 2.462 Unknown [id number] 2.16.840.1.609539.3.579. 2.462 Unknown [id number] 2.16.840.1.205669.3.579. 2.462 Unknown [id number] 2.16.840.1.962968.3.579. 2.462 Unknown [id number] 2.16.840.1.821714.3.579. 2.462 Unknown [id number] 2.16.840.1.996755.3.579. 2.462 Unknown [id number] 2.16.840.1.788559.3.579. 2.462 Unknown [id number] 2.16.840.1.806900.3.579. 2.462 Unknown [id number] 2.16.840.1.619912.3.579. 2.462 Unknown [id number] 2.16.840.1.561687.3.579. 2.462 Unknown [id number] 2.16840.1.806423.3.579. 2.462 Unknown [id number] 2.16.840.1.463030.3.579. 2.462 Unknown [id number] 2.16840.1.877011.3.579. 2.462 Unknown [id number] 2.840.1.492774.3.579. 2.462 Social History Date Type Detail Facility Start: 02-01-1981 End: 03-12-2021 Tobacco smoking status NHIS Current every day smoker [place] Start: 02-01-1981 End: 03-12-2021 History of tobacco use Cigarette Smoker [place] Start: 07-08-2020 End: 09-07-2025 Cigarettes smoked current (pack per day) - Reported [place] Start: 07-08-2020 End: 09-07-2025 Tobacco use and exposure Never used [place] Start: 07-08-2020 End: 08-19-2025 Alcohol intake Current drinker of alcohol (finding) [place] Start: 06-13-2019 End: 05-24-2021 History SDOH Alcohol Frequency 5 [place] Start: 06-13-2019 History SDOH Alcohol Std Drinks 2 [place] Start: 06-13-2019 End: 05-24-2021 History SDOH Alcohol Binge 1 [place] Start: 06-13-2019 History SDOH Social Connections Phone 3 [place] Start: 06-13-2019 History SDOH Physical Activity DPW 0 [place] Start: 1955 [facility] Start: 11-07-2022 End: 07-07-2023 Exposure to SARS-CoV-2 (event) Not sure [facility] Work Phone: Start: 06-13-2019 End: 09-07-2025 Alcohol intake Yes [facility] Start: 02-20-2021 Alcohol Comment couple beers a day [facility] Work Phone: Start: 03-12-2021 End: 09-07-2025 Alcohol intake Ex-drinker (finding) [employer] Work Phone: Start: 05-16-2021 End: 09-07-2025 Tobacco smoking status NHIS Former smoker [facility] Start: 02-01-1981 End: 03-12-2021 History of tobacco use Current smoker [facility] Start: 02-21-2022 End: 03-08-2024 Tobacco smoking status [facility] Unknown if ever smoked [facility] Start: 08-19-2018 Occasional [facility] Start: 08-19-2018 None [facility] Start: 08-19-2018 Spouse/ Significant Other [facility] Start: 08-19-2018 Cigarettes [facility] Start: 1955 Sex Assigned At Male [facility] Sex Assigned At Sex [facility] National Score (1-10 0), lower number is lower risk 63 [facility] Start: 06-09-2022 Sex Male (finding) [facility] How often to you hav e a drink containing alcohol? Never [facility] How often do you nee d to have someone help you when you read instructions, pamphlets, or other written material from your doctor or pharmacy [SILS] Rarely [facility] Has the [employer], [employer], [employer], or water [employer] threatened to shut off services in your home in past 12Mo No [facility] Are you now , , , , never or living with a partner? [facility] Do you feel stress - tense, restless, nervous, or anxious, or unable to sleep at night because your mind is troubled all the time - these days [OSQ] Not at all [facility] (I/We) worried wheth er (my/our) food would run out before (I/we) got money to buy more. Never true [facility] Medical Equipment Procedure Code Equipment Code Equipment [...] Start: 05-03-2021 EGD, with monitored anesthesia care [id number] FDA Start: 05-04-2023 Discectomy, spine, cervical, anterior approach, with fusion PUTTY,BONE .5CC DBX FDA Start: 03-08-2024 Discectomy, spine, cervical, anterior approach, with fusion ref- [id number] 16mm fixed angle screw FDA Start: 03-08-2024 Discectomy, spine, cervical, anterior approach, with fusion ref- [id number] 15mm rescue screw FDA Start: 03-08-2024 Discectomy, spine, cervical, anterior approach, with fusion ref- [id number] anatomic cervical allograft spacer FDA Start: 03-08-2024 Discectomy, spine, cervical, anterior approach, with fusion ref- [id number] anatomic cervical allograft spacer FDA Start: 03-08-2024 Discectomy, spine, cervical, anterior approach, with fusion ref- [id number] 42.5mm plate FDA Start: 03-08-2024 Discectomy, spine, cervical, anterior approach, with fusion SEALANT,FLOSEAL HEMOSTATIC 5ML FDA Start: 03-08-2024 Discectomy, spine, cervical, anterior approach, with fusion SUTURE,LIGA CLIP MED LT200 FDA Start: 03-08-2024 Discectomy, spine, cervical, anterior approach, with fusion SUTURE,LIGA CLIP MED LT200 FDA Start: 03-08-2024 Discectomy, spine, cervical, anterior approach, with fusion ref- [id number] 14mm fixed angle screw FDA Start: 03-08-2024 Discectomy, spine, cervical, anterior approach, with fusion ref- [id number] 15mm fixed angle screw FDA Start: 03-08-2024 Discectomy, spine, cervical, anterior approach, with fusion ref- [id number] 16mm fixed angle screw FDA Start: 03-08-2024 Discectomy, spine, cervical, anterior approach, with fusion ref- [id number] 16mm fixed angle screw FDA Start: 03-08-2024 Discectomy, spine, cervical, anterior approach, with fusion ref- [id number] 16mm fixed angle screw FDA Start: 03-08-2024 [...] spine, cervical, anterior approach, with fusion ref- [id number] 16mm fixed angle screw FDA Start: 03-08-2024 Discectomy, spine, cervical, anterior approach, with fusion ref- [id number] 15mm rescue screw FDA Start: 03-08-2024 Discectomy, spine, cervical, anterior approach, with fusion ref- [id number] anatomic cervical allograft spacer FDA Start: 03-08-2024 Discectomy, spine, cervical, anterior approach, with fusion ref- [id number] anatomic cervical allograft spacer FDA Start: 03-08-2024 Discectomy, spine, cervical, anterior approach, with fusion ref- [id number] 42.5mm plate FDA Start: 03-08-2024 Discectomy, spine, cervical, anterior approach, with fusion SEALANT,FLOSEAL HEMOSTATIC 5ML FDA Start: 03-08-2024 Discectomy, spine, cervical, anterior approach, with fusion SUTURE,LIGA CLIP MED LT200 FDA Start: 03-08-2024 Discectomy, spine, cervical, anterior approach, with fusion SUTURE,LIGA CLIP MED LT200 FDA Start: 03-08-2024 Discectomy, spine, cervical, anterior approach, with fusion ref- [id number] 14mm fixed angle screw FDA Start: 03-08-2024 Discectomy, spine, cervical, anterior approach, with fusion ref- [id number] 15mm fixed angle screw FDA Start: 03-08-2024 Discectomy, spine, cervical, anterior approach, with fusion ref- [id number] 16mm fixed angle screw FDA Start: 03-08-2024 Discectomy, spine, cervical, anterior approach, with fusion ref- [id number] 16mm fixed angle screw FDA Start: 03-08-2024 Discectomy, spine, cervical, anterior approach, with fusion ref- [id number] 16mm fixed angle screw FDA Start: 03-08-2024 Discectomy, spine, cervical, anterior approach, with fusion PUTTY,BONE .5CC DBX FDA Start: 03-08-2024 Discectomy, spine, cervical, anterior approach, with fusion ref- [id number] 16mm fixed angle screw FDA Start: 03-08-2024 Discectomy, spine, cervical, anterior approach, with fusion ref- [id number] 15mm rescue screw FDA Start: 03-08-2024 Discectomy, spine, cervical, anterior approach, with fusion ref- [id number] anatomic cervical allograft spacer FDA Start: 03-08-2024 Discectomy, spine, cervical, anterior approach, with fusion ref- [id number] anatomic cervical allograft spacer FDA Start: 03-08-2024 Discectomy, spine, cervical, anterior approach, with fusion ref- [id number] 42.5mm plate FDA Start: 03-08-2024 Discectomy, spine, cervical, anterior approach, with fusion SEALANT,FLOSEAL HEMOSTATIC 5ML FDA Start: 03-08-2024 Discectomy, spine, cervical, anterior approach, with fusion SUTURE,LIGA CLIP MED LT200 FDA Start: 03-08-2024 Discectomy, spine, cervical, anterior approach, with fusion SUTURE,LIGA CLIP MED LT200 FDA Start: 03-08-2024 Discectomy, spine, cervical, anterior approach, with fusion ref- [id number] 14mm fixed angle screw FDA Start: 03-08-2024 Discectomy, spine, cervical, anterior approach, with fusion ref- [id number] 15mm fixed angle screw FDA Start: 03-08-2024 Discectomy, spine, cervical, anterior approach, with fusion ref- [id number] 16mm fixed angle screw FDA Start: 03-08-2024 Discectomy, spine, cervical, anterior approach, with fusion ref- [id number] 16mm fixed angle screw FDA Start: 03-08-2024 Discectomy, spine, cervical, anterior approach, with fusion ref- [id number] 16mm fixed angle screw FDA Start: 03-08-2024 [...] spine, cervical, anterior approach, with fusion ref- [id number] 16mm fixed angle screw FDA Start: 03-08-2024 Discectomy, spine, cervical, anterior approach, with fusion ref- [id number] 15mm rescue screw FDA Start: 03-08-2024 Discectomy, spine, cervical, anterior approach, with fusion ref- [id number] anatomic cervical allograft spacer FDA Start: 03-08-2024 Discectomy, spine, cervical, anterior approach, with fusion ref- [id number] anatomic cervical allograft spacer FDA Start: 03-08-2024 Discectomy, spine, cervical, anterior approach, with fusion ref- [id number] 42.5mm plate FDA Start: 03-08-2024 Discectomy, spine, cervical, anterior approach, with fusion SEALANT,FLOSEAL HEMOSTATIC 5ML FDA Start: 03-08-2024 Discectomy, spine, cervical, anterior approach, with fusion SUTURE,LIGA CLIP MED LT200 FDA Start: 03-08-2024 Discectomy, spine, cervical, anterior approach, with fusion SUTURE,LIGA CLIP MED LT200 FDA Start: 03-08-2024 Discectomy, spine, cervical, anterior approach, with fusion ref- [id number] 14mm fixed angle screw FDA Start: 03-08-2024 Discectomy, spine, cervical, anterior approach, with fusion ref- [id number] 15mm fixed angle screw FDA Start: 03-08-2024 Discectomy, spine, cervical, anterior approach, with fusion ref- [id number] 16mm fixed angle screw FDA Start: 03-08-2024 Discectomy, spine, cervical, anterior approach, with fusion ref- [id number] 16mm fixed angle screw FDA Start: 03-08-2024 Discectomy, spine, cervical, anterior approach, with fusion ref- [id number] 16mm fixed angle screw FDA Start: 03-08-2024 [...] spine, cervical, anterior approach, with fusion ref- [id number] 16mm fixed angle screw FDA Start: 03-08-2024 Discectomy, spine, cervical, anterior approach, with fusion ref- [id number] 15mm rescue screw FDA Start: 03-08-2024 Discectomy, spine, cervical, anterior approach, with fusion ref- [id number] anatomic cervical allograft spacer FDA Start: 03-08-2024 Discectomy, spine, cervical, anterior approach, with fusion ref- [id number] anatomic cervical allograft spacer FDA Start: 03-08-2024 Discectomy, spine, cervical, anterior approach, with fusion ref- [id number] 42.5mm plate FDA Start: 03-08-2024 Discectomy, spine, cervical, anterior approach, with fusion SEALANT,FLOSEAL HEMOSTATIC 5ML FDA Start: 03-08-2024 Discectomy, spine, cervical, anterior approach, with fusion SUTURE,LIGA CLIP MED LT200 FDA Start: 03-08-2024 Discectomy, spine, cervical, anterior approach, with fusion SUTURE,LIGA CLIP MED LT200 FDA Start: 03-08-2024 Discectomy, spine, cervical, anterior approach, with fusion ref- [id number] 14mm fixed angle screw FDA Start: 03-08-2024 Discectomy, spine, cervical, anterior approach, with fusion ref- [id number] 15mm fixed angle screw FDA Start: 03-08-2024 Discectomy, spine, cervical, anterior approach, with fusion ref- [id number] 16mm fixed angle screw FDA Start: 03-08-2024 Discectomy, spine, cervical, anterior approach, with fusion ref- [id number] 16mm fixed angle screw FDA Start: 03-08-2024 Discectomy, spine, cervical, anterior approach, with fusion ref- [id number] 16mm fixed angle screw FDA Start: 03-08-2024 Discectomy, spine, cervical, anterior approach, with fusion PUTTY,BONE .5CC DBX FDA Start: 03-08-2024 Discectomy, spine, cervical, anterior approach, with fusion ref- [id number] 16mm fixed angle screw FDA Start: 03-08-2024 Discectomy, spine, cervical, anterior approach, with fusion ref- [id number] 15mm rescue screw FDA Start: 03-08-2024 Discectomy, spine, cervical, anterior approach, with fusion ref- [id number] anatomic cervical allograft spacer FDA Start: 03-08-2024 Discectomy, spine, cervical, anterior approach, with fusion ref- [id number] anatomic cervical allograft spacer FDA Start: 03-08-2024 Discectomy, spine, cervical, anterior approach, with fusion ref- [id number] 42.5mm plate FDA Start: 03-08-2024 Discectomy, spine, cervical, anterior approach, with fusion SEALANT,FLOSEAL HEMOSTATIC 5ML FDA Start: 03-08-2024 Discectomy, spine, cervical, anterior approach, with fusion SUTURE,LIGA CLIP MED LT200 FDA Start: 03-08-2024 Discectomy, spine, cervical, anterior approach, with fusion SUTURE,LIGA CLIP MED LT200 FDA Start: 03-08-2024 Discectomy, spine, cervical, anterior approach, with fusion ref- [id number] 14mm fixed angle screw FDA Start: 03-08-2024 Discectomy, spine, cervical, anterior approach, with fusion ref- [id number] 15mm fixed angle screw FDA Start: 03-08-2024 Discectomy, spine, cervical, anterior approach, with fusion ref- [id number] 16mm fixed angle screw FDA Start: 03-08-2024 Discectomy, spine, cervical, anterior approach, with fusion ref- [id number] 16mm fixed angle screw FDA Start: 03-08-2024 Discectomy, spine, cervical, anterior approach, with fusion ref- [id number] 16mm fixed angle screw FDA Start: 03-08-2024 Discectomy, spine, cervical, anterior approach, with fusion PUTTY,BONE .5CC DBX FDA Start: 03-08-2024 Discectomy, spine, cervical, anterior approach, with fusion ref- [id number] 16mm fixed angle screw FDA Start: 03-08-2024 Discectomy, spine, cervical, anterior approach, with fusion ref- [id number] 15mm rescue screw FDA Start: 03-08-2024 Discectomy, spine, cervical, anterior approach, with fusion ref- [id number] anatomic cervical allograft spacer FDA Start: 03-08-2024 Discectomy, spine, cervical, anterior approach, with fusion ref- [id number] anatomic cervical allograft spacer FDA Start: 03-08-2024 Discectomy, spine, cervical, anterior approach, with fusion ref- [id number] 42.5mm plate FDA Start: 03-08-2024 Discectomy, spine, cervical, anterior approach, with fusion SEALANT,FLOSEAL HEMOSTATIC 5ML FDA Start: 03-08-2024 Discectomy, spine, cervical, anterior approach, with fusion SUTURE,LIGA CLIP MED LT200 FDA Start: 03-08-2024 Discectomy, spine, cervical, anterior approach, with fusion SUTURE,LIGA CLIP MED LT200 FDA Start: 03-08-2024 Discectomy, spine, cervical, anterior approach, with fusion ref- [id number] 14mm fixed angle screw FDA Start: 03-08-2024 Discectomy, spine, cervical, anterior approach, with fusion ref- [id number] 15mm fixed angle screw FDA Start: 03-08-2024 Discectomy, spine, cervical, anterior approach, with fusion ref- [id number] 16mm fixed angle screw FDA Start: 03-08-2024 Discectomy, spine, cervical, anterior approach, with fusion ref- [id number] 16mm fixed angle screw FDA Start: 03-08-2024 Discectomy, spine, cervical, anterior approach, with fusion ref- [id number] 16mm fixed angle screw FDA Start: 03-08-2024 [...] anterior approach, with fusion FDA Start: 03-08-2024 [id number] Start: 05-07-2023 End: 04-18-2025 Comment on above: USE TO TEST BLOOD LIND GAR 2 TIMES A DAY USE TO TEST BLOO D SUGAR 2 TIMES A DAY [id number] Start: 05-07-2023 USE TO TEST BLOO D SUGAR 2 TIMES A DAY [id number] Start: 05-07-2023 USE TO TEST BLOO D SUGAR 2 TIMES A DAY [id number] Start: 05-07-2023 Goals Date Patient Goal Desired [...] [facility] ionnaire 2 item (PHQ-2) [Reported] [facility] 08-22-2025 Functional status Ambulates [facility] Work Phone: 04-18-2025 Alcohol Use Disorder Identification Test [AUDIT] [facility] 04-18-2025 Patient Health Quest ionnaire 2 item (PHQ-2) [Reported] [facility] 03-24-2025 Functional status Up ad tevin;Bath room Privilege [facility] Work Phone: 02-21-2025 Patient Health Quest ionnaire 2 item (PHQ-2) [Reported] [facility] 01-18-2025 Functional status Chair [facility] Work Phone: 12-16-2024 Functional status Ambulates;Up ad tevin [facility] Work Phone: 03-09-2024 Functional status Bedrest [facility] Work Phone: 05-06-2023 Functional status Bedrest [facility] Work Phone: 11-21-2022 Functional status Ambulates [facility] Work Phone: [facility] Mental Status Date Assessment Result Facility 08-22-2025 Cognitive function Voice/Name [facility] Work Phone: 06-28-2025 Cognitive function Voice/Name [facility] Work Phone: 03-23-2025 [facility]: 01-18-2025 Cognitive function Voice/Name [facility] Work Phone: 12-16-2024 Cognitive function Voice/Name [facility] Work Phone: 11-16-2024 Cognitive function Awake;Alert;A ppropriate;[facility] Work Phone: 04-27-2024 Cognitive function Voice/Name [facility] Work Phone: 03-09-2024 Cognitive function Level Of Cons ciousness Awake;Alert;Appropriate;[facility] Work Phone: 03-09-2024 Cognitive function Voice/Name [facility] Work Phone: 10-18-2023 Cognitive function Voice/Name [facility] Work Phone: 10-05-2023 Cognitive function Voice/Name [facility] Work Phone: 07-01-2023 Cognitive function Voice/Name [facility] Work Phone: 05-05-2023 Cognitive function Voice/Name;Touch/Shaki ng [facility] Work Phone: 03-19-2023 Cognitive function Voice/Name [facility] Work Phone: 11-20-2022 Cognitive function Voice/Name [facility] Work Phone: 05-27-2022 Cognitive function Awake;Alert [facility] Work Phone: 05-20-2022 Cognitive function Voice/Name [facility] Work Phone: 05-02-2021 Cognitive function Touch/Shaking [facility] Work Phone: Clinical Notes 07-17-2003 to 09-14-2025 Katie Pekc MA - 09/14/2025 11:30 AM Sony Hatch [...] Center 09/14/2025 11:30 AM SCHEDULE RITTMJORGE [facility] 04/19/2026 10:20 AM Celsa Jacobs [facility]N [facility] Cc'd provider blood pressure readings? Yes Blood's pressure is still a little high I would recommend adding chlorthalidone 25 mg daily and recheck blood pressure in 1 to 2 weeks. documented in this encounter [facility] 09-14-2025 History of Present illness Narrative The [...] 11:30 AM SCHEDULE RITAG CARTER [facility] 04/19/2026 10:20 AM LEXI Hillman CNP [facility] Cc'd provider blood pressure readings? Yes Blood's pressure is still a little high I would recommend adding chlorthalidone 25 mg daily and recheck blood pressure in 1 to 2 weeks. Spoke with patient he is agreeable to starting chlorthalidone 25 mg daily, verified patients pharmacy [facility]. Patient scheduled for b/p nurse visit in 2 weeks. Rx sent for chlorthalidone 25 mg by mouth once daily to the [facility] in [place]. Follow-up as scheduled on 09/29/2025 for repeat blood pressure check. documented in this encounter [facility] 09-14-2025 Miscellaneous Notes Addended by: SRAA MONTEJO on: 09/15/2025 09:32 AM Modules accepted: Orders documented in this encounter [facility] 09-14-2025 Note Addended by: SARA MONTEJO on: 09/15/2025 09:32 AM Modules accepted: Orders [facility] 09-14-2025 Note Addended by: SARA MONTEJO on: 09/15/2025 09:32 AM Modules accepted: Orders [facility] 09-07-2025 Evaluation + Plan note Associated Problem(s): Hypercholesterolemia Controlled, continue rosuvastatin 40 mg daily [facility] 09-07-2025 Miscellaneous Notes Associated Problem(s): Hypercholesterolemia Controlled, [...] a former smoker. documented in this encounter [facility] 09-07-2025 Evaluation + Plan note Associated Problem(s): Renal cell carcinoma of right kidney (HCC) Currently stable he is taking Keytruda IV every 21 days [facility] 09-07-2025 Evaluation + Plan note Associated Problem(s): Elevated PSA PSA is borderline, will recheck his level today since has been a year and a half since it was checked [facility] 09-07-2025 Evaluation + Plan note Associated Problem(s): Celiac disease Stable, avoid gluten [facility] 09-07-2025 Evaluation + Plan note Associated Problem(s): Essential hypertension Blood pressure was initially elevated, recheck was still elevated will have him follow-up in 1 week for blood pressure check continue amlodipine 10 mg daily carvedilol 25 mg twice a day, hydralazine 50 mg twice a day [facility] 09-07-2025 Evaluation + Plan note Associated Problem(s): Aortic stenosis, mild Stable, being followed by cardiology [facility] 09-07-2025 Evaluation + Plan note Associated Problem(s): COPD (chronic obstructive pulmonary disease) (HCC) Stable, he has DuoNeb solution for his nebulizer and is a former smoker. [facility] 09-07-2025 History of Present illness Narrative Patient [...] patient although he is not new to [facility] He has all host of problems which [...] 09/07/2025 3:30 PM documented in this encounter [facility] 08-29-2025 Note HNO ID: [id number] Author: FRANCOIS ACEVEDO MD Service: ? Author Type: Physician Type: Progress Notes Filed: 08/29/2025 11:46 Note Text: NEUROSURGERY FOLLOW UP OFFICE NOTE Dr. Francois Acevedo MD, FACS Date of visit: August 29, 2025 Patient Name: Mr.Larry Linda Arshad . Date of : 1955 Current Age: [age] year old Sex: male MRN/E# [id number] Last Office Visit: 05/23/2025 CHIEF COMPLAINT: Patient [...] SRS (SBRT) to the metastatic lesion at [place]. Two months following treatment MRI was completed [...] N/A PREVIOUS NEURO (more content not included)... [facility] 08-24-2025 Progress note Note Date/Time August 24, 2025 2:59pm [facility] [address], [address] [place] [address] OFFICE VISIT Date of Service: 08/24/25 MR#: [id number] Acct: [id number] Name: KENN ARSHAD Linda Rep #: [id number] : 1955 Provider: Dr. Zachary Farrar MD Age/Sex: 69/M Location: [facility] Status: Signed Intake Vital Signs [...] Port-A-Cath in place Atherosclerotic heart disease of [place] coronary artery without angina pectoris Hyperlipidemia Wears [...] fallen in the past year?: No 08/24/25 3000 <Electronically signed by Artemio Farrar MD> Date _ Artemio Farrar MD Cosigner Signature: Date (if applicable) CC: ~ [employer] Work Phone: [phone] [id number] Progress note Author Lalo Anastacia [facility] Note Date/Time August 22, 2025 8 :30am [facility] Medical Records Department [address] [place] [address] Progress Note - Surgery 08/22/25820 MR#: [id number] Acct: [id number] Name: KENN ARSHAD Rep #:[id number] : 1955 69 From: Anastacia LAZARO PCP: Dr. Jacob Jennings, DO Status:AD M IN Location: [place] [address] Subjective Subjective Patient seen this morning at [...] 78.8 H, Lymph % (Auto) 10.9 L, [place] % (Auto) 6.8, Eos % (Auto) 1.8, [...] or expressive drainage 5/5 strength biceps, triceps, engineering executive, intrinsics, wrist flexion and extension. Sensation intact [...] outpatient 08/24. Charges/Coding Visit Charges Inpatient E&M: 72073 Subs Hosp L2 08/22/25 0830 <Electronically signed by Anastacia LAZARO> Cosigner Signature (if applicable): CC: ~ Signed [facility] Work Phone: 1(192) 372-714910-14-2025 [facility]10-13-2025 Progress note Author Antwan Pitts [facility] Note Date/Time August 21, 2025 1 1:05am [facility] Medical Records Department [address] [place] [address] Progress Note - Hospitalist 08/21/25 3001 MR#: [id number] Acct: [id number] Name: ARSHADKENN D Rep #:[id number] : 1955 69 From: Antwan Pitts MD PCP: Dr. Jacob Jennings, DO Status:AD M IN [facility] Reason for Visit Chief Complaint: [...] 40 Minutes Charges/Coding Visit Charges Inpatient E&M: 68716 Subs Hosp L2 08/21/25 1105 <Electronically signed by Antwan Pitts MD> Cosigner Signature (if applicable): CC: ~ Signed [facility] Work Phone: 1(603) 391-933710-13-2025 Progress note Author Artemio Farrar [facility] Note Date/Time August 21, 2025 9 :48am [facility] Medical Records Department [address] [place] [address] Progress Note - Surgery 08/21/25 0947 MR#: [id number] Acct: [id number] Name: KENN ARSHAD Rep #:[id number] : 1955 69 From: Artemio Farrar MD PCP: Dr. Jacob Jennings, DO Status:AD M IN Location: [place] [address] Subjective Subjective Doing well Reports improved pain [...] Cosigner Signature (if applicable): CC: ~ Signed [facility] Work Phone: 1(480) 604-741910-12-2025 Progress note Author Emmanuel Kaiser [facility] Note Date/Time August 20, 2025 9 :20am [facility] Medical Records Department [address] [place] [address] Progress Note - Hospitalist 08/20/25 0732 MR#: [id number] Acct: [id number] Name: ARSHADKENN D Rep #:[id number] : 1955 69 From: Emmanuel Nava PCP: Dr. Jacob Jennings, DO Status:AD IN Location: [place] [address] Reason for Visit Chief Complaint: Right upper [...] 80.9 H, Lymph % (Auto) 10.5 L, [place] % (Auto) 6.9, Eos % (Auto) 0.4, [...] of gas-forming infection or osteomyelitis. Reading Location: [place] [address] Physical Exam Narrative No fever. Cat bite on right hand on dorsal aspect. 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 Follows [facility], Dr. Angela Rodriguez. Seen and examined General: [...] Patient is a 69-year-old male who presented [facility] on 08/19/2025 as a transfer from outside [...] of gas-forming infection or osteomyelitis. Reading Location: [place] [address] Charges/Coding Visit Charges Inpatient E&M: 20972 Subs Hosp L2 08/20/25 0920 <Electronically signed by Emmanuel Kaiser MD> Cosigner Signature (if applicable): CC: ~ Signed [facility] Work Phone: 1([phone]) 294-907310-12-2025 Consult note Author Artemio Farrar [facility] Note Date/Time August 20, 2025 8 :33am [facility] Medical Records Department [address] [place] [address] Consultation - Surgical 08/20/25819 MR#: [id number] Acct: [id number] Name: KENN ARSHAD Rep #:[id number] : 1955 69 From: Artemio Farrar MD PCP: Dr. Jacob Jennings, DO Status:AD M IN Location: [facility] PPA895- 1 Assessment & Plan Assessment/Plan (1) Cellulitis [...] on Keytruda for metastatic cancer (renal primary). 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 Reading [facility] [address] Charges/Coding Multi Select Codes Visit Charges Office Visit/Consults: 13039 IP Consult L2 and 86464 IP Consult L3 08/20/25 0833 <Electronically signed by Artemio Farrar MD> Cosigner Signature (if applicable): CC: Dr. Jacob Jennings, DO~ Signed [facility] Work Phone: 1([phone]) 216-805710-12-2025 [facility]iology [facility] History and physical note Author Chris Medina [facility] Note Date/Time August 19, 2025 9 :15pm [facility] Medical Records Department [address] [place] [address] H&P Exam - Hospitalist 08/19/251951 MR#: [id number] Acct: [id number] Name: KENN ARSHAD Rep #:[id number] : 1955 69 From: Chris dee DO PCP: Dr. Jacob Jennings, DO Status:AD M IN Location: [facility] JGW423- 1 HPI - General General Date of Admission: 08/19/25 Date of Service: 08/19/25 Chief Complaint: Right upper extremity cellulitis secondary to right hand cat bite HPI Narrative KENN ARSHAD, is a 69 M who presented to [facility] on 08/19/2025 as a transfer from [place] [facility] for right upper extremity cellulitis secondary [...] He had an MRI brain done at [facility] after his office visit on 08/16 [...] to palpation, so he went to the [place] ED for further evaluation. [facility] records reviewed. [...] chills. Denies any other acute concerns currently. 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 Charges/Coding Visit Charges Inpatient E&M: 18242 Init Hosp L3 08/19/252114 <Electronically signed by Chris Medina DO> Cosigner Signature (if applicable): CC: Dr. Chris Medina DO; Dr. Jacob Jennings DO~ Signed [facility] Work Phone: 1([phone]) 102-857210-11-2025 Emergency department Note* Marcy Taylor RN - 08/19/2025 6:05 PM EDT Stock[place]ette placed over pts left ac IV site. Transfer paperwork sent with pt and . to drive pt to [facility]. [facility] [id number] Emergency department Note* Marcy Taylor RN - 08/19/2025 6:05 PM EDT Stockinette placed over pts left ac IV site. Transfer paperwork sent with pt and . to drive pt to [facility]. * Marcy Taylor RN - 08/19/2025 5:21 PM EDT Pt requesting to go to [facility] by private car, will drive. Dr. Birch in to speak withpt. * Marcy Taylor RN - 08/19/2025 5:[address] Birch speaking with [facility] hospitalist. * Marcy Taylor RN - 08/19/2025 4:43 PM EDT Applied bacitracin to right forearm area of blisters and redness, covered with nonstick pads and secured with roll gauze. * Marcy Taylor RN - 08/19/2025 4:42 PM EDT Call placed to [facility]. Spoke with group home supervisor who states they do have beds [...] hospitalization (in the case of discharge home). [id number] SHARED DECISION MAKING: I discussed my risk assessment with the patient. The patient understands and consents to the risk of disposition/plan, as well as the risk of uncertainty in estimating outcomes. [id number] I did consider the possibility of a necrotizing soft tissue infection/NSTI, but the infection is not located in the groin, the patient is not hypotensive or tachycardic, he is not on dialysis or cirrhotic he is not an alcoholic and he is not diabetic. Therefore he has a [facility] NSTI CMT score of 0, therefore standard [...] Patient requested that he be admitted to [facility] because all of his chemotherapy happens a blister. [facility] transfer center contacted approximately 1630. They will see if hospitalist service will accept patient. Since the patient is not in severe sepsis or septic shock and there is no neurovascularcompromise of the right upper extremity at this time, there is no indication for ICU admission or em ergent surgical consultation. Patient was accepted to Dr. Mahesh Medina's service at [facility]. Results of workup and plan of care explained to patient and his . They indicated understanding and agreement. They agree to inpatient admission to [facility]. Disposition: Inpatient admit [facility] Critical Care Attestation: The patient required critical [...] Dr. Chambers COPD (chronic obstructive pulmonary disease) ([facility]) 2020 PFTS mild Obst lung ds ([facility]) COVID-19 virus infection 10/2021 DDD (degenerative disc disease), cervical 02/2024 s/p ACF per [facility] Essential hypertension 1994 Ex-smoker 03/2021 Family history of diabetes mellitus sister Gastric polyps 12/[address] Ramírez, [facility] also-erythematous duodenopathy H/O colonoscopy 02/2019 Ahmed- small polyp- due 2023 History of colon polyps 2000 [facility] History of pulmonary embolism 04/2023 Eliquis began ? length of rx History of renal carcinoma 2005 Left Radical Nephrectomy per Dr. 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 Social Drivers of Health Financial Resource Strain: Low Risk (06/30/2022) Received from [facility] Overall Financial Resource Strain (CARDIA) Difficulty of Paying Living Expenses: Not hard at all Food Insecurity: No Food Insecurity (06/30/2022) Received from [facility] Hunger Vital Sign Worried About Running Out of Food in the Last Year: Never true Ran Out of Food in the Last Year: Never true Transportation Needs: No Transportation Needs (06/13/2019) Received from [facility] PRAPARE - Transportation Lack of Transportation (Medical): No Lack of Transportation (Non-Medical): No Physical Activity: Inactive (06/13/2019) Received from [facility] Exercise Vital Sign Days of Exercise per Week: 0 days Minutes of Exercise per Session: 0 min Stress: No Stress Concern Present (06/13/2019) Received from [facility] [place] of Occupational Health - Occupational Stress Questionnaire Feeling of Stress : Not at all Social Connections: Moderately Isolated (06/13/2019) Received from [facility] Social Connection and Isolation Panel [NHANES] Frequency of Communication with Friends and Family: Twice a week Frequency of Social Gatherings with Friends and Family: Once a week Attends Mandaen Services: Never Active Member of Clubs or [...] is triple the size. documented in this [facility]10-11-2025 Emergency department Note* Marcy Taylor RN - 08/19/2025 5:21 PM EDT Pt requesting to go to [facility] by private car, will drive. Dr. Birch in to speak withpt. [facility] [id number] Emergency department Note* Macry Taylor RN - 08/19/2025 5:[address] Birch speaking with [facility] hospitalist. [facility], [id number] Emergency department Note* Marcy Taylor RN - 08/19/2025 4:43 PM EDT Applied bacitracin to right forearm area of blisters and redness, covered with nonstick pads and secured with roll gauze. [facility] [id number] Emergency department Note* Marcy Taylor RN - 08/19/2025 4:42 PM EDT Call placed to [facility]. Spoke with group home supervisor who states they do have beds and will have the hospitalist call back. [facility], [id number] Emergency department Triage note* Marcy Taylor RN [...] so now it is triple the size. [facility], [id number] Physician Emergency department Note* Tono Birch MD [...] hospitalization (in the case of discharge home). [id number] SHARED DECISION MAKING: I discussed my risk assessment with the patient. The patient understands and consents to the risk of disposition/plan, as well as the risk of uncertainty in estimating outcomes. [id number] I did consider the possibility of a [...] Patient requested that he be admitted to [facility] because all of his chemotherapy happens a blister. [facility] transfer center contacted approximately 1630. They will see if hospitalist service will accept patient. Since the patient is not in severe sepsis or septic shock and there is no neurovascularcompromise of the right upper extremity at this time, there is no indication for ICU admission or ergent surgical consultation. Patient was accepted to Dr. Mahesh Medina's service at [facility]. Results of workup and plan of care explained to patient and his . They indicated understanding and agreement. They agree to inpatient admission to [facility]. Disposition: Inpatient admit [facility] Critical Care Attestation: The patient required critical [...] 5. 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 Ramírez- mild gastritis with small HH [3] Family History Problem Relation Name Age of Onset Coronary artery disease Mother 65 CABG Stroke Mother age 77 Lung cancer Mother Coronary artery disease Father age 50 [place] - smoker Coronary artery disease Sister Amairani CABG Diabetes Sister Amairani alive age 64 No Known Problems Sister Mariana No Known Problems Sister Lidia No Known Problems Sister Joanne No Known Problems Brother Moises Coronary artery disease Brother Kaiden age 47 [place] [4] Social History Socioeconomic History Marital status: [...] excessive ETOH. 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 Social Drivers of Health Financial Resource Strain: Low Risk (06/30/2022) Received from [facility] Overall Financial Resource Strain (CARDIA) Difficulty of Paying Living Expenses: Not hard at all Food Insecurity: No Food Insecurity (06/30/2022) Received from [facility] Hunger Vital Sign Worried About Running Out of Food in the Last Year: Never true Ran Out of Food in the Last Year: Never true Transportation Needs: No Transportation Needs (06/13/2019) Received from [facility] PRAPARE - Transportation Lack of Transportation (Medical): No Lack of Transportation (Non-Medical): No Physical Activity: Inactive (06/13/2019) Received from [facility] Exercise Vital Sign Days of Exercise per Week: 0 days Minutes of Exercise per Session: 0 min Stress: No Stress Concern Present (06/13/2019) Received from [facility] [place] of Occupational Health - Occupational Stress Questionnaire Feeling of Stress : Not at all Social Connections: Moderately Isolated (06/13/2019) Received from [facility] Social Connection and Isolation Panel [NHANES] Frequency of Communication with Friends and Family: Twice a week Frequency of Social Gatherings with Friends and Family: Once a week Attends Mandaen Services: Never Active Member of Clubs or Organizations: No Attends Club or Organization Meetings: Never Marital Status: Tono Birch MD 08/19/25 1712 [facility], [id number] NoteHNO ID: [id number] Author: NIDIA SCHAEFFER RT(Raphael) Service: ? Author [...] PATIENT PRESENTS WITH AN IMPLANTABLE OR ATTACHED PUBLIC HEALTH DENTIST: No RADIOLOGY DEPARTMENT: MR; Exam(s) Completed: Head: Routine Brain with Perfusion. Anesthesia: No. Aromatherapy Administered: No PERIPHERAL IV DATA: Site assessment: Clean,Dry and Intact, Site disposition Discontinued SIGNED BY: ZAMZAM Laurent) August 16, 2025 2:25 [facility]10-08-2025 NoteHNO ID: [id number] Author: MARCY EUGENE RN Service: ? Author Type: Registered Nurse Type: Progress Notes Filed: 08/16/2025 15:05 Note Text: Previously accessed at [facility] MRI complete IVAD is located in left upper chest. Blood Return: Good Flushed with: 20 ml Normal Saline Non-coring needle removed. Paper tape applied to puncture site. Port site negative for redness, edema or tenderness. Patient tolerated procedure well. [facility]10-08-2025 Progress [facility] [address] [place] [address] OFFICE VISIT Date of Service: 08/16/25 1125 MR#: [id number] Acct: [id number] Name: KENN ARSHAD Rep #: [id number] : 1955 From: Verónica Leavitt ch DIAMOND GRINDER DIAMOND GRINDER-C Age/Sex: 69/M Location: [facility] Status: Signed HPI Subjective Date of Service [...] fossa April 16, 2023 MRI spectroscopy at [facility] Main campus: Impression: Spectroscopy and perfusion [...] May 07 ?July 30, 2021 (5 cycles) DE but held in August 2021 due to [...] diet as advised by GI, no N/V/D. 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 Keytruda held August 2021 due to acute kidney injury cause unclear (baseline creatinine 1.0, peak 1.9). 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 His creatinine [...] 2023 showed stability of disease in the RIVETER and no new lesions. 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 MRI brain at [facility] later today, follow up with Dr. [...] the past year?: No 08/16/25 1208 h DIAMOND GRINDER DIAMOND GRINDER-C> Date _ Verónica Meadows DIAMOND GRINDER DIAMOND GRINDER-C Cosigner Signature: Date (if applicable) CC: ~ [facility]09-26-2025 Progress [facility] [address] [place], [place] [address] OFFICE VISIT Date of Service: 08/04/25 MR#: [id number] Acct: [id number] Name: KENN ARSHAD Rep #: [id number] : 1955 Provider: Dr. Edilson Sandoval MD Age/Sex: 69/M Location: [facility] Status: Signed HPI HPI History of [...] 200 systolic. 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) Coding Level of Care Code Off vis,est,level [...] Bolanos Signature: Date (if applicable) CC: ~ [facility]09-17-2025 Progress [facility] [address] [place] [address] OFFICE VISIT Date of Service: 07/26/25 1009 MR#: [id number] Acct: [id number] Name: KENN ARSHAD Linda Rep #: [id number] : 1955 From: Verónica Leavitt ch DIAMOND GRINDER DIAMOND GRINDER-C Age/Sex: 69/M Location: [facility] Status: Signed HPI Subjective Date of Service [...] fossa April 16, 2023 MRI spectroscopy at [facility] Main campus: Impression: Spectroscopy and perfusion [...] May 07 ?July 30, 2021 (5 cycles) DE but held in August 2021 due to [...] MRI with Dr. Acevedo is planned for. 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 Keytruda held August 2021 due to acute kidney injury cause unclear (baseline creatinine 1.0, peak 1.9). 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 His creatinine [...] 2023 showed stability of disease in the RIVETER and no new lesions. 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 Request last [...] the past year?: No 07/26/25 1058 h DIAMOND GRINDER DIAMOND GRINDER-C> Date _ Verónica Meadows NP, NP-C Cosigner Signature: Date (if applicable) CC: ~ [facility] [id number] Progress note Author Verónica Meadows [facility] Note Date/Time July 26, 2025 10:58am [facility] [address] [place] [address] OFFICE VISIT Date of Service: 07/26/25 1009 MR#: [id number] Acct: [id number] Name: KENN ARSHAD Rep #: [id number] : 1955 From: Verónica Leavitt ch, NP DIAMOND GRINDER-C Age/Sex: 69/M Location: [facility] Status: Signed HPI Subjective Date of Service [...] fossa April 16, 2023 MRI spectroscopy at [facility] Main [facility]: Impression: Spectroscopy and perfusion [...] May 07 ?July 30, 2021 (5 cycles) DE but held in August 2021 due to ELANA. Resumed November 26, 2021 with no recurrent. Held again January 2025 when he developed acute colitis. To resume March 13, 2025 * Stereotactic brain radiation at [facility] October 28, 2022 a single fraction [...] MRI with Dr. Acevedo is planned for. [facility] Medical History MRSA (methicillin resistant staph aureus) [...] Port-A-Cath in place Atherosclerotic heart disease of swinom[place] coronary artery without angina pectoris Hyperlipidemia Wears [...] Brain metastasis: Status: Chronic Comment: SBRT at [facility] November 2022 (8) Iron deficiency anemia [...] over the uppertrunk that responded to topical wgxj-tqd-qyryqyc preparation). Keytruda held August 2021 due to acute kidney injury cause unclear (baseline creatinine 1.0, peak 1.9). 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 His creatinine [...] 2023 showed stability of disease in the RIVETER and no new lesions. 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 Request last [...] Cosigner Signature: Date (if applicable) CC: ~ [facility] Work Phone: 1(642) 388-627408-22-2025 Radiology Diagnostic study [facility]08-07-2025 Progress note Author Verónica Meadows [facility] Note Date/Time June 15, 2025 12: 07pm [facility] [place] [address] OFFICE VISIT Date of Service: 06/15/25 1111 MR#: [id number] Acct: [id number] Name: KENN ARSHAD Rep #: [id number] : 1955 From: Verónica Leavitt ch DIAMOND GRINDER DIAMOND GRINDER-C Age/Sex: 69/M Location[place] [facility] Status: Signed HPI Subjective Date [...] fossa April 16, 2023 MRI spectroscopy at [facility] Main campus: Impression: Spectroscopy and perfusion [...] May 07 ?July 30, 2021 (5 cycles) DE but held in August 2021 due to ELANA. Resumed November 26, 2021 with no recurrent. Held again January 2025 when he developed acute colitis. To resume March 13, 2025 * Stereotactic brain radiation at [facility] October 28, 2022 a single fraction [...] no N/V. Otherwise feels well. Energy improved. 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 Keytruda held August 2021 due to acute kidney injury cause unclear (baseline creatinine 1.0, peak 1.9). 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 His creatinine [...] 2023 showed stability of disease in the RIVETER and no new lesions. 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, he is on watchful 4-elective imaging [...] 1207 <Electronically signed by Verónica castro NP DIAMOND GRINDER-C> Date _ Verónica Meadows NP DIAMOND GRINDER-C Cosigner Signature: Date (if applicable) CC: ~ [employer] Work Phone: 1(740) 811-954507-16-2025 Evaluation note* Diagnosis Onset Date Resolution Status [...] 7:52pm Cellulitis acute August 24, 2025 2:30pm [facility] Work Phone: 1(350) 525-142907-16-2025 Progress [facility] [address] [place] [address] OFFICE VISIT Date of Service: 05/24/25 1026 MR#: [id number] Acct: [id number] Name: JEANCARLOSKENN Linda Rep #: [id number] : 1955 From: Angela stapleton MD Age/Sex: 69/M [place] [facility] Status: Signed HPI Subjective Date of Service [...] fossa April 16, 2023 MRI spectroscopy at [facility] Main campus: Impression: Spectroscopy and perfusion [...] May 07 ?July 30, 2021 (5 cycles) DE but held in August 2021 due to ELANA. Resumed November 26, 2021 with no recurrent. Held again January 2025 when he developed acute colitis. To resume March 13, 2025 * Stereotactic brain radiation at [facility] October 28, 2022 a single fraction with 10 MV photons. 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 Keytruda held August 2021 due to acute kidney injury cause unclear (baseline creatinine 1.0, peak 1.9). 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 His creatinine [...] fall to the right, underwent SBRT at [facility] November 2022 and fully recovered. * December 2022 had some recurrent headache and brain MRI showed if any mild increase in the size of the mass in the left posterior parietal lobe with surrounding edema improved with steroids. Follow-up brain MRI January 2023 showed stability of disease in the RIVETER and no new lesions. 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, he is on watchful 4-elective imaging [...] initiative then resumes back Angela Rodriguez MD Solar Energy Systems Engineer, [facility] Divisions of Medical Oncology & Hematology Department of Internal Medicine [place] [address] This note was generated using a voice [...] Cosigner Signature: Date (if applicable) CC: ~ [facility]07-16-2025 Progress note Author Angela Rodriguez [facility] Note Date/Time May 24, 2025 10:5 6am [facility] [place] [address] OFFICE VISIT Date of Service: 05/24/25 1026 MR#: [id number] Acct: [id number] Name: KENN ARSHAD Linda Rep #: [id number] : 1955 From: Angela stapleton MD Age/Sex: 69/M Location[place] [facility] Status: Signed HPI Subjective Date of Service [...] fossa April 16, 2023 MRI spectroscopy at [facility] Main campus: Impression: Spectroscopy and perfusion [...] May 07 ?July 30, 2021 (5 cycles) DE but held in August 2021 due to ELANA. Resumed November 26, 2021 with no recurrent. Held again January 2025 when he developed acute colitis. To resume March 13, 2025 * Stereotactic brain radiation at [facility] October 28, 2022 a single fraction with 10 MV photons. 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 Keytruda held August 2021 due to acute kidney injury cause unclear (baseline creatinine 1.0, peak 1.9). 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 His creatinine [...] 2023 showed stability of disease in the RIVETER and no new lesions. 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 Francois Robin. MD Kristina, [facility] Date of visit: May 23, 2025 Patient Name: Mr.Larry Linda Arshad . Date of : 1955 Current Age: [age] year old Sex: male MRN/E# [id number] Last Office Visit: November 18, 2024 CHIEF [...] SRS (SBRT) to the metastatic lesion at [facility]. Two months following treatment MRI was completed [...] weeks Radiation/ Oncology - Dr. Percy Tao ([facility]) PAIN EVALUATION No data found in the [...] This note has been partially generated using [employer], a speech recognition software program, and may contain errors including punctuation, grammar, spelling, gender, and inappropriate words or phrases that pertain to the system. Recording using [employer] software for draft documentation of the visit was discussed with the patient/authorized mill representative; all questions welcomed and answered. Patient/authorized mill representative agreed to proceed documented in this [facility] [place]-2025 NoteHNO ID: [id number] Author: FRANCOIS ACEVEDO MD Service: ? Author Type: Physician Type: Progress Notes Filed: 05/23/2025 11:02 Note Text: NEUROSURGERY FOLLOW UP OFFICE NOTE Dr. Francois Acevedo MD, FACS Date of visit: May 23, 2025 Patient Name: Mr.Larry Linda Arshad Sr. Date of : 1955 Current Age: [age] year old Sex: male MRN/E# [id number] Last Office Visit: November 18, 2024 CHIEF [...] SRS (SBRT) to the metastatic lesion at [facility]. Two months following treatment MRI was completed [...] weeks Radiation/ Oncology - Dr. Percy Tao ([facility]) PAIN EVALUATION No data found in the [...] Sig Dispense Refill omeprazole (more content not included)...[facility]07-10-2025 History of Present illness Narrative* Jacqui [...] PATIENT PRESENTS WITH AN IMPLANTABLE OR ATTACHED PUBLIC HEALTH DENTIST: No RADIOLOGY DEPARTMENT: MR; Exam(s) Completed: Head: Routine Brain with Perfusion. Aromatherapy Administered: No PERIPHERAL IV DATA: Site assessment: Clean,Dry and Intact, Site disposition Discontinued SIGNED BY: RT Nara(R) May 18, 2025 11:13 AM documented in this encounterSelect [facility] [place]-10-2025 NoteHNO ID: [id number] Author: JACQUI MOORE RT(Raphael) Service: ? Author [...] PATIENT PRESENTS WITH AN IMPLANTABLE OR ATTACHED PUBLIC HEALTH DENTIST: No RADIOLOGY DEPARTMENT: MR; Exam(s) Completed: Head: Routine Brain with Perfusion. Aromatherapy Administered: No PERIPHERAL IV DATA: Site assessment: Clean,Dry and Intact, Site disposition Discontinued SIGNED BY: Jacqui Duran Anita Moore, RT(R) May 18, 2025 11:13 [facility]06-24-2025 Evaluation note* Diagnosis Onset Date Resolution [...] present chronic June 15 10:28am Anemia acute [place] 26th, 2 025 10:20am Brain metastasis chronic [...] metastasis present chronic August 16, 2025 10:24am [facility] Work Phone: 1(462) 707-341106-24-2025 Progress note Author Verónica Meadows [facility] Note Date/Time May 02, 2025 11:1 8am [facility] [place] [address] OFFICE VISIT Date of Service: 05/02/25 1040 MR#: [id number] Acct: [id number] Name: KENN ARSHAD Rep #: [id number] : 1955 From: Verónica Leavitt ch DIAMOND GRINDER DIAMOND GRINDER-C Age/Sex: 69/M Location: [facility] Status: Signed HPI Subjective Date [...] fossa April 16, 2023 MRI spectroscopy at [facility] Main campus: Impression: Spectroscopy and perfusion [...] May 07 ?July 30, 2021 (5 cycles) DE but held in August 2021 due to ELANA. Resumed November 26, 2021 with no recurrent. Held again January 2025 when he developed acute colitis. To resume March 13, 2025 * Stereotactic brain radiation at [facility] October 28, 2022 a single fraction [...] by GI. Otherwise feels well. Energy improved. 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 Keytruda held August 2021 due to acute kidney injury cause unclear (baseline creatinine 1.0, peak 1.9). 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 His creatinine [...] fall to the right, underwent SBRT at [facility] November 2022 and fully recovered. * December 2022 had some recurrent headache and brain MRI showed if any mild increase in the size of the mass in the left posterior parietal lobe with surrounding edema improved with steroids. Follow-up brain MRI January 2023 showed stability of disease in the RIVETER and no new lesions. 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 RTO 05/24/25 for ?c61 pembrolizumab. Clinical Quality Measures Falls Risk Screening/Assistive Devices Have you fallen in the past year?: No 05/02/25 1118 <Electronically signed by Verónica GALINDO> Date _ Verónica GALINDO Cosigner Signature: Date (if applicable) CC: ~ [employer] Work Phone: 1(644) 583-948406-10-2025 History of Present illness Narrative* Monalisa Sanford [...] from the original note were not included. [facility] - [address] [facility] [address] Dept: [phone] Dept Chief Complaint: Kenn Arshad is an [...] continue Crestor 7. Coronary artery disease involving swinomish coronary artery of swinomish heart without angina pectoris Stable, continue Crestor [...] quittin.1 Smokeless Tobacco Never documented in this [facility]06-10-2025 Instructions* Patient Instructions* Jacob Jennings DO [...] Recommendations: A preventive eye exam by an health education specialist is recommended every 1-2 years to screen for glaucoma, cataracts, macular degeneration, and other eye disorders. A preventive dental visit is recommended every 6 months. Try to get at least 150 minutes of exercise per week or 10,000 steps per day on a pedometer. You need 1200-1500mg of calcium and 0841-7061 international units of vitamin D per day. [...] bicycle or a motorcycle documented in this [facility]06-04-2025 Evaluation note* Diagnosis Onset Date Resolution [...] 17, 2003 resolved Septe mber 2024 11:13am [facility] Work Phone: 1(264) 287-727505-21-2025 Evaluation note* Diagnosis Onset Date Resolution Status [...] is present chronic July 26, 2025 9:41am [employer] Work Phone: 1(386) 766-956005-19-2025 Telephone encounter Note* Telephone Encounter - Brandie Luz MA - 03/27/2025 5:09 PM EDT Recent Visits Date Type Provider Dept 02/21/25 Office Visit Jacob Jennings DO [facility] 12/30/24 Office Visit Jacob Jennings, [...] BUN 7 (L) 12/30/2024 CREATININE 1.11 12/30/2024 [facility] [id number] Miscellaneous Notes* Telephone Encounter - Brandie Luz [...] Fp 04/19/24 Office Visit Jacob Jennings DO [facility] Showing recent visits within past 365 days and meeting all other requirements Future Appointments Date Type Provider Dept 04/18/25 Appointment Jacob Sharda DO [facility] Showing future appointments within next [...] 12/30/2024 CREATININE 1.11 12/30/2024 documented in this encounterSEly[facility] [id number] Telephone encounter Note* Telephone Encounter - Katie Peck MA - 03/27/2025 2:14 PM EDT Spoke with Katharina and she voiced understanding. [facility] [id number] Miscellaneous Notes* Telephone Encounter - Katie Peck MA - 03/27/2025 2:14 PM EDT Spoke with Katharina and she voiced understanding. * Telephone Encounter - Yahaira Diaz - 03/27/2025 11:24 AM EDT Name of caller: Katharina Contact phone number: [phone] Relationship to Patient: [facility] Provider: Dr Jennings Practice: [facility] Chief Complaint/Reason for Call: Caller is requesting [...] return their call: No documented in this [facility]05-19-2025 Telephone encounter Note* Telephone Encounter - Yahaira Diaz - 03/27/2025 11:24 AM EDT Name of caller: Katharina Contact phone number: [phone] Relationship to Patient: [facility] Provider: Dr Jennings Practice: [facility] Chief Complaint/Reason for Call: Caller is requesting [...] business hours to return their call: No [facility] [id number] [facility]05-15-2025 Progress note Author Michael Friend [facility] Note Date/Time March 23, 2025 6:42p m [facility] Medical Records Department [address] [place] [address] Progress Note 03/23/257 MR#: [id number] Acct: [id number] Name: KENN ARSHAD Rep #:[id number] : 1955 69 From: Michael Friend PCP: Dr. Jacob Jennings, DO Status:AD M IN Location: MS3 KY815-2 Progress Note Patient is eating a little [...] narcotics as possible Visit Charges Inpatient E&M: [address] [place] [address] 03/23/25 2659 <Electronically signed by Michael Friend DO> Michael Friend DO Cosigner Signature (if applicable): CC: ~ Signed [facility] Work Phone: 1([phone]) 896-119905-15-2025 Consult note Author David Rm [facility] Note Date/Time March 23, 2025 4:16p m [facility] Medical Records Department [address] [place] [address] Pharmacokinetic/Renal -Consult 03/23/25 1448 MR#: [id number] Acct: [id number] Name: KENN ARSHAD Rep #:[id number] : 1955 69 From: David Rm PCP: Dr. Jacob Jennings DO Status:AD M IN Y Location: [place] [id number] Consult Antibiotic Management Pharmacy has been consulted [...] Culture - Preliminary Staphylococcus aureus GNR lactose branch examiner 03/21/25 20:45 Mucosa - Nasopharyngeal Respiratory Panel [...] Date Emmanuel Kaiser MD CC: ~ Signed [facility] Work Phone: 1(374) 759-386005-15-2025 Progress note Author Emmanuel Kaiser [facility] Note Date/Time March 23, 2025 2:01p m [facility] Medical Records Department [address] [facility] [place] [address] Progress Note - Hospitalist 03/23/25 1340 MR#: [id number] Acct: [id number] Name: KENN ARSHAD Rep #:[id number] : 1955 69 From: Emmanuel Nava PCP: Dr. Jacob Jennings, DO Status:AD M IN [facility] Reason for Visit Reason for Visit: Diagnoses [...] 03/22/25 15:22 SB (Rec: 03/22/25 15:23 SB [id number]) Nutrition Malnutrition Evidence of Yes Malnutrition Exists [...] 80.4 H, Lymph % (Auto) 9.5 L, [place] % (Auto) 6.4, Eos % (Auto) 0.3, [...] Culture - Preliminary Staphylococcus aureus GNR lactose branch examiner 03/21/25 20:45 Mucosa - Nasopharyngeal Respiratory Panel [...] stain shows Staph aureus and GNR lactose branch examiner. Vancomycin started back. MRSA nasal screen negative [...] Patient does not have healthcare power of managing attorney or living will in place but [...] Culture - Preliminary Staphylococcus aureus GNR lactose branch examiner 03/21/25 20:45 Mucosa - Nasopharyngeal Respiratory Panel [...] 80.4 H, Lymph % (Auto) 9.5 L, [place] % (Auto) 6.4, Eos % (Auto) 0.3, [...] right kidney. Charges/Coding Visit Charges Inpatient E&M: 92206 Subs Hosp L2 03/23/25 1348 <Electronically signed by Emmanuel Kaiser MD> Cosigner Signature (if applicable): CC: ~ Signed ADDENDUM by Dr. Emmanuel Kaiser MD on 03/23/25 at 1350 Addendum Continue IV Zosyn till today and then changed to IV ceftriaxone tomorrow a.m. to narrow down the antibiotic as prelim sputum culture growing GNR lactose branch examiner. 03/23/25 1350<Electronically signed by Emmanuel Kaiser MD> Cosigner Signature (if applicable): cc: ~* Signed ADDENDUM by Dr. Emmanuel Kaiser MD on 03/23/25 at 1401 Addendum [...] Cosigner Signature (if applicable): cc: ~* Signed [facility] Work Phone: 1(166) 740-558505-14-2025 Consult note Author El Acosta [facility] Note Date/Time March 22, 2025 7:52p m [facility] Medical Records Department [address] [place] [address] Anesthesia Postop Eval II 03/22/251951 MR#: [id number] Acct: [id number] Name: KENN ARSHAD Rep #:[id number] : 1955 69 From: El Acosta MD PCP: Dr. Jacob Jennings, DO Status:AD M IN Y Race: C Location: [address] Anesthesia Postop Eval I Sum Postop [...] MD Cosigner Signature: Date CC: ~ Signed [facility] Work Phone: 1(662) 511-771205-14-2025 Progress note Author Michael Chambers [facility] Note Date/Time March 22, 2025 6:41p m [facility] Medical Records Department [address] [place] [address] Progress Note 03/22/25 1837 MR#: [id number] Acct: [id number] Name: KENN ARSHAD Rep #:[id number] : 1955 69 From: Michael Chambers DO PCP: Dr. Jacob Jennings, Status:AD M IN Location: [place] [address] Progress Note Mr. Arshad has Pembrolizumab, an [...] 03/22/25 at 1841 Visit Charges Inpatient E&M: 18856 Subs Hosp L3 03/22/251840 <Electronically signed by Michael nava DO> Date _ Michael Chambers DO Cosignazam Signature (if applicable): Date cc: ~* Signed [facility] Work Phone: 1(858) 927-862005-14-2025 Consult note Author El [facility] Note Date/Time March 22, 2025 6:32p m [facility] Medical Records Department [address] [place] [address] Anesthesia Postop Eval I 03/22/251827 MR#: [id number] Acct: [id number] Name: KENN ARSHAD Rep #:[id number] : 1955 69 From: El Acosta MD PCP: Dr. Jacob Jennings, Status:AD M IN Y Race: C [place] [facility] [place] -[place] Anesthesia: Postop Eval I Current [...] El Bolanos Signature: Date CC: ~ Signed [facility] Work Phone: 1(455) 277-119605-14-2025 Progress note Author Michael Friend [facility] Note Date/Time March 22, 2025 5:40p m [facility] Medical Records Department [address] [place] [address] Progress Note 03/22/25 1738 MR#: [id number] Acct: [id number] Name: KENN ARSHAD Rep #:[id number] : 1955 69 From: Michael Chambers DO PCP: Dr. Jacob Jennings, DO Status:AD M IN [place] [facility] [place]416-9 Progress Note Patient has been n.p.o. waiting [...] ASA of 3. Visit Charges Inpatient E&M: 32456 [facility] Hosp 03/22/25 1740 <Electronically signed by Michael Chambers DO> Michael Chambers DO Cosigner Signature (if applicable): CC: ~ Signed [facility] Work Phone: 1([phone]) 274-189705-14-2025 Consult note Author Michael Chambers [facility] Note Date/Time March 22, 2025 5:39p m [facility] Medical Records Department [address] [place] [address] Consultation - GI 03/21/252107 MR#: [id number] Acct: [id number] Name: KENN ARSHAD Rep #:[id number] : 1955 69 From: Michael Chambers DO PCP: Dr. Jacob Jennings DO Status:AD M IN [place]: [facility] [place]I080-9 ADDENDUM by Michael Chambers DO on 03/22/25 at 1738 Visit Charges Inpatient E&M: 78253 Init Hosp L3 Assessment & Plan (1) [...] was consulted to today intractable nausea vomiting. 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 Reading Location: [facility] 03/22/25 152 <Electronically signed by Michael Chambers DO> Cosigner Signature (if applicable): CC: Dr. Jacob Jennings DO~ Signed [facility] Work Phone: 1(356) 429-455905-14-2025 Consult note Author El [facility] Note Date/Time March 22, 2025 5:31p m [facility] Medical Records Department [address] [place] [address] Pre-Anesthesia Evaluation 03/22/25 1723 MR#: [id number] Acct: [id number] Name: KENN ARSHAD Linda Rep #:[id number] : 1955 69 From: [place] MD PCP: Dr. Jacob Jennings DO Status:AD M IN Y Race: C Location: [place] [address] ASA Classification* ASA Classification ASA Classification: 3 [...] possible biopsy. Anesthesia History Anesthesia History - dynamo tender: Anesthesia History - dynamo tender Hx Hospitalization No 01/19/25 10:31 Any Problems [...] meds given at 0800 PONV PONV - dynamo tender: PONV - dynamo tender Female HX of Motion Sickness HX of N/V After Surgery Non-Smoker Duration of Surgery greater than 60 minutes Number of Risk Factors PONV Score Height & Weight Height & Weight: Anesthesia: Height & Weight Height 5 ft 5 in 03/22/25 11:48 Weight: 78.188 kg 03/22/25 11:48 Body Mass Index (BMI) 28.6 03/22/25 11:48 Respiratory Assessment Respiratory Assessment - dynamo tender: Respiratory Tract Infection Hx - dynamo tender Hx Respiratory Tract Infection No 01/19/25 10:31 Any additional information?: Yes Hx Respiratory Tract Infection: Yes History of Anesthesia Respiratory Infection details: Patient is currently being treated forpneumonia with steroids and antibiotics and oxygen. STOP Sleep Apnea STOP Sleep Apnea - dynamo tender: STOP Sleep Apnea - dynamo tender Hx Hypertension Yes 03/22/25 13:52 Hx Sleep [...] Tobacco Use History Tobacco Use History - dynamo tender: Tobacco Use History - dynamo tender Tobacco Use Smoking Status Former smoker 03/21/25 17:55 Hx Tobacco Use No 03/21/25 17:55 Years Smoking Packs Smoked per Day Smoking Cessation Date was Yes - quit smoking within 15 03/21/25 17:55 within the last 15 years years Hx Smoking Cessation Date 03/12/20 03/21/25 17:55 Hx Smoking Cessation Yes 03/21/25 17:55 Counseling Hematologic Medial History Hematologic Hx - dynamo tender: 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 Hx of Blood Transfusion No 03/21/25 17:55 [...] confused, unrespo /Reproduction History /Reproductive History - dynamo tender: /Reproductive Hx- dynamo tender Hx Now Gestational Age (in weeks): EDC: [...] 22:00 03/22/25 08:01 Apixaban 2.5 Mg Tablet ([facility]) PO 2.5 mg BID DAVE Administration Atorvastatin [...] 03/21/25 17:56 03/22/25 12:40 IV 15 mls/hr .[id number] PRN Infusion Saline Flush Sodium Chloride 250 mls @ 15 mls/hr 03/21/25 17:56 IV .[id number] PRN Additional IVPB Infusion Lactated Ringer's 1,000 [...] Port-A-Cath in place Atherosclerotic heart disease of swin[place] coronary artery without angina pectoris Hyperlipidemia Wears [...] MD Cosigner Signature: Date CC: ~ Signed [facility] Work Phone: 1(169) 835-467405-14-2025 Procedure [facility] 03-22-2025 Procedure [facility]05-14-2025 Progress note Author Emmanuel Kaiser [facility] Note Date/Time March 22, 2025 11:45 am [facility] Medical Records Department [address] [place] [id number] Progress Note - Hospitalist 03/22/25 0954 MR#: [id number] Acct: [id number] Name: KENN ARSHAD Linda Rep #:[id number] : 1955 69 From: Emmanuel Nava PCP: Dr. Jacob Jennings, DO Status:AD M IN Location: [place] [address] Reason for Visit Reason for Visit: Diagnoses [...] Neut % (Auto) 57.3, Lymph % (Auto)19.8, [place] % (Auto) 14.1 H, Eos % (Auto) [...] 78.1 H, Lymph % (Auto) 17.3 L, [place] % (Auto) 2.3, Eos % (Auto) 0.0, [...] masses in the right kidney. Reading Location: [facility] Physical Exam Narrative Seen and examined Personal [...] Patient does not have healthcare power of managing attorney or living will in place but he notes his who is present would be his medical decision- maker if necessary. Discussed CODE status at length including difference between FULL code, DNR-CCA and DNR-CC status. Following discussions about the differences in these status, requested DNR-CCA, no intubation. Charges/Coding Visit Charges Inpatient E&M: 54025 Subs Hosp L2 03/22/25 1145 <Electronically signed by Emmanuel Kaiser MD> Cosigner Signature (if applicable): CC: ~ Signed [facility] Work Phone: [phone]) 830-899405-13-2025 Consult note Author Sukh Holland [facility] Note Date/Time March 21, 2025 8:07p m [facility] Medical Records Department [address] [place] [address] Pharmacokinetic/Renal -Consult 03/21/251938 MR#: [id number] Acct: [id number] Name: KENN ARSHAD Rep #:[id number] : 1955 69 From: Sukh carter PCP: Dr. Jacob Jennings, DO Status:AD M IN Y Location: ID3 [id number] Consult Antibiotic Management Pharmacy has been consulted [...] x1, then continue with 1000mg q12h per [facility] dosing protocol. Check a trough before [...] Date Sayra Fuentes MD CC: ~ Signed [facility] Work Phone: 1(456) 433-406305-13-2025 History and physical note Author Sayra Fuentes [facility] Note Date/Time March 21, 2025 5:59p m [facility] Medical Records Department [address] [place] [address] H&P Exam - Hospitalist 03/21/25 1647 MR#: [id number] Acct: [id number] Name: KENN ARSHAD Rep #:[id number] : 1955 69 From: Sayra Fuentes MD PCP: Dr. Jacob Jennings, DO Status:AD M IN [place] [facility] [id number] HPI - General General Date of Admission: [...] use, Chronic anemia who presents to the [facility] ED on 03/21/2025 with 3 weeks of [...] L nasal cannula with most recent repeat ppsflxqnkhA09.2, heart rate 78, BP 98/44, respiratory rate [...] mg IV x 1 in the ED. [facility] Medical History Acute infective gastroenteritis COPD [...] Port-A-Cath in place Atherosclerotic heart disease of swinom[place] coronary artery without angina pectoris Hyperlipidemia Wears [...] % (Auto) Cancelled, Lymph % (Auto) Cancelled, [place] % (Auto) Cancelled, Eos % (Auto) Cancelled, [...] Drop Cells Cancelled, Ovalocytes Cancelled, Stomatocytes Cancelled, Foster-Loleta Bodies Cancelled, Kezia Cells Cancelled, Bite Cells [...] Neut % (Auto) 57.3, Lymph % (Auto)19.8, [place] % (Auto) 14.1 H, Eos % (Auto) 6.7 H, Baso % (Auto) 0.8, Absolute Neuts (auto) 2.2, Absolute Lymphs (auto) 0.77 L, Nucleated RBC % 0 Imaging Radiology Impression Chest/Abdomen/Pelvis CT 03/21/25 10:03 IMPRESSION: New right pleural effusion with infiltration in both lungs worse on the right side as described. Status post left nephrectomy. Persistent masses in the right kidney. Reading Location: [id number] Assessment & Plan Assessment/Plan (1) Pneumonia: (2) [...] use, Chronic anemia who presents to the [facility] ED on 03/21/2025 with 3 weeks of [...] Patient does not have healthcare power of managing attorney or living will in place but he notes his who is present would be his medical decision- maker if necessary. Discussed CODE status at length including difference between FULL code, DNR-CCA and DNR-CC status. Following discussions about the differences in these status, requested DNR-CCA, no intubation. Charges/Coding Visit Charges Inpatient E&M: 28203 Init Hosp L3 03/21/25 2086 <Electronically signed by Sayra Fuentes MD> Cosigner Signature (if applicable): CC: Dr. Sayra Fuentes MD; Dr. Jacob Jennings DO~ Signed [facility] Work Phone: [phone]) 701-985705-13-2025 Discharge summary Author [facility] Note Date/Time March 21, 2025 5:20p m [facility] Medical Records Department [address] [place] [address] Emergency Department Summary 03/21/25 MR#: [id number] Acct: [id number] Name: KENN ARSHAD Rep #:[id number] : 1955 69 From: Khalif Garza PCP: Dr. Jacob Jennings DO Status:AD M IN [place] [facility] [id number] HPI HPI - GI History of Present [...] or hematochezia. Patient denies any urinary complaints. [facility] Medical History Acute infective gastroenteritis COPD exacerbation [...] Port-A-Cath in place Atherosclerotic heart disease of swin[place] coronary artery without angina pectoris Hyperlipidemia Wears [...] Cancelled 57.3 Lymph % (Auto) Cancelled 19.8 [place] % (Auto) Cancelled 14.1 H Eos % [...] Drop Cells Cancelled Ovalocytes Cancelled Stomatocytes Cancelled Foster-Loleta Bodies Cancelled Thayer Cells Cancelled Bite Cells Cancelled Crenated Cell [...] masses in the right kidney. Reading Location: [facility] CT scan of the chest, abdomen, and [...] Hypoxia, Dysphagia Disposition Disposition: Acute Care Hospital [facility] What to do if you have Problems For any increased pain, shortness of breath, bleeding, nausea or vomiting, chestpain, or any unexpected problems, contact your Primary Care Provider. Call [facility] ([phone]) or report to the closest Emergency Room. Call 911 if necessary. 03/21/25 1720 <Electronically signed by Khalif Horan DO> Cosigner Signature (if applicable): CC: Dr. Jacob Jennings DO ~ Signed [facility] Work Phone: [phone]) 189-908105-13-2025 Radiology Diagnostic study [facility]05-13-2025 Discharge summary Author Khalif Horan [facility] Note Date/Time March 21, 2025 5:20p m [facility] Medical Records Department [address] [place] [address] Emergency Department Summary 03/21/25 MR#: [id number] Acct: [id number] Name: KENN ARSHAD Rep #:[id number] : 1955 69 From: Khalif Garza PCP: Dr. Jacob Jennings, DO Status:AD M IN Location: [facility] [id number] HPI HPI - GI History of Present [...] or hematochezia. Patient denies any urinary complaints. [facility] Medical History Acute infective gastroenteritis COPD exacerbation [...] Port-A-Cath in place Atherosclerotic heart disease of swin[place] coronary artery without angina pectoris Hyperlipidemia Wears [...] Cancelled 57.3 Lymph % (Auto) Cancelled 19.8 [place] % (Auto) Cancelled 14.1 H Eos % [...] Drop Cells Cancelled Ovalocytes Cancelled Stomatocytes Cancelled Foster-Loleta Bodies Cancelled Kezia Cells Cancelled Bite Cells [...] masses in the right kidney. Reading Location: [facility] CT scan of the chest, abdomen, and [...] of right kidney, Hypoxia, Dysphagia Disposition Disposition: [facility] What to do if you have Problems For any increased pain, shortness of breath, bleeding, nausea or vomiting, chestpain, or any unexpected problems, contact your Primary Care Provider. Call [facility] ([phone]) or report to the closest Emergency Room. Call 911 if necessary. 03/21/25 1720 <Electronically signed by Khalif Horan DO> Cosigner Signature (if applicable): CC: Dr. Jacob Jennings DO ~ Signed [facility] Work Phone: 1(364) 529-689205-07-2025 Evaluation note* Diagnosis Onset Date Resolution Status [...] metastas is present June 15, 2025 10:28am [facility] Work Phone: [phone] Evaluation note* Diagnosis Onset Date Resolution Status [...] metastas is present chronic July 05 12:29pm [facility] Work Phone: [phone]) 206-482004-25-2025 Telephone encounter Note* Telephone Encounter - Sierra Hernandez LPN - 03/03/2025 7:13 AM EDT Recent Visits Date Type Provider Dept 02/21/25 Office Visit Jacob Jennings, DO [facility] 12/30/24 Office Visit Jacob Jennings, DO [facility] 12/06/24 Office Visit Jacob Jennings, DO [facility] 10/20/24 Office Visit Jacob Jennings DO [facility] 09/19/24 Office Visit Jacob Jennings DO [facility] 04/19/24 Office Visit Jacob Jennings, [...] recent labs completed in chart? N/A None [facility] [id number] Miscellaneous Notes* Telephone Encounter - Sierra Hernandez LPN - 03/03/2025 7:13 AM EDT Recent Visits Date Type Provider Dept 02/21/25 Office Visit Jacob Robin Dick, DO [facility] 12/30/24 [...] in chart? N/A None documented in this [facility]04-15-2025 History of Present illness Narrative* Jacob Jennings DO - 02/21/2025 2:30 PM EDT Images from the original note were not included. [facility] [address] [facility] [address] Visit type: Established Patient Reason [...] perhaps restarting Keytruda. Does not see his spinning operator routinely but has seen Dr. Malcolm in the past. Saw Dr. Chambers's senior officer a few days ago for follow-up after [...] daily., Disp: 180 tablet, Rfl: 1 Lancets (Reef Point SystemsTouch Delica Plus [id number]) mis, , Disp: , Rfl: nitroglycerin (Nitrostat) 0.4 MG SL tablet, Place 1 tablet (0.4 mg) under the tongue every 5 minutes as needed for chest pain., Disp: 90 tablet, Rfl: 0 omeprazole (PriLOSEC) [address] capsule, Take 1 capsule (20 mg) by mouth Daily as needed (reflux)., Disp: 90 capsule, Rfl: 1 Reef Point SystemsTouch Ultra test strip, , Disp: , Rfl: [...] W/ FUSION 02/2024 Dr. Sutherland, C3-5 , [place] COLONOSCOPY 02/2019 Ahmed- small polyp- due 2023 [...] Amairani Coronary artery disease Father age 50 [place] - smoker Coronary artery disease Brother Kaiden age 47 [place] Objective: BP 110/64 Pulse 90 Temp 37.9 [...] without edema or pallor documented in this [facility]04-15-2025 Instructions* Patient Instructions* Jacob Jennings DO - 02/21/2025 2:30 PM EDT I do recommend restarting your DuoNeb aerosols at least 3 times a day. Should take a multivitamin with a probiotic each day for many months. Please call spinning operator Dr. Malcolm for input on any med additions for your cough if things worsen. Notify us up if you have 1 week of purulent colored phlegmthat is accompanied by more shortness of breath and a sense of feeling ill. documented in this [facility]04-10-2025 Evaluation note* Diagnosis Onset Date Resolution [...] metastatic to lung chronic June 09 10:30am [facility] Work Phone: 1(722) 156-874204-10-2025 Evaluation note* Diagnosis Onset Date Resolution Status [...] metastas is present June 15, 2025 10:28am [facility] [employer] [facility] Work Phone: [phone]) 347-859403-26-2025 Evaluation note* Diagnosis Onset Date Resolution Status [...] is present chronic May 24, 2025 9:38am [facility] Work Phone: [phone] Telephone encounter Note* Telephone Encounter - Monalisa Sanford MA - 01/23/2025 5:07 PM EDT Left fabiola a detailed message and to call the office if any questions. [facility], [id number] Miscellaneous Notes* Telephone Encounter - Monalisa Sanford MA - 01/23/2025 5:07 PM EDT Left fabiola a detailed message and to call the office if any questions. * Telephone Encounter - Nidia Yoon - 01/23/2025 2:38 PM EDT Name of caller: Fabiola Contact phone number: [phone] Relationship to Patient: [facility] PT Provider: Dr. Jennings Practice: [facility] FP Chief Complaint/Reason for Call: Caller states today 01.23.2025, was patients first appointment. Will continue PT 2 x a week for 3 weeks for functional mobility training. FYI, thank you. Best time of day caller can be reached: Any Patient advised that office/PCP has 24-48 business hours to return their call: Yes documented in this encounterSElyria Memorial [id number] Telephone encounter Note* Telephone Encounter - Nidia Yoon - 01/23/2025 2:38 PM EDT Name of caller: Fabiola Contact phone number: [phone] Relationship to Patient: [facility] PT Provider: Dr. Jennings Practice: [facility] Chief Complaint/Reason for Call: Caller states today 01.23.2025, was patients first appointment. Will continue PT 2 x a week for 3 weeks for functional mobility training. TOSHIAI, thank you. Best time of day caller can be reached: Any Patient advised that office/PCP has 24-48 business hours to return their call: Yes [facility], [id number] Telephone encounter Note* Telephone Encounter - Lesly Barrios RN - 01/20/2025 6:49 PM EDT duplicate [facility], [id number] Miscellaneous Notes* Telephone Encounter - Lesly Barrios RN - 01/20/2025 6:49 PM EDT duplicate * Telephone Encounter - Janelle Montgomery - 01/02/2025 2:27 PM EST Records requested * Telephone Encounter - Jacob Jennings DO - 12/30/2024 10:42 AM EST Staff to call this patient's senior officer Dr. Chambers in [place] to get a copy of the most recent colonoscopy and office notes about colonic AVM, lower GI bleeding, and possible treatments in the future. Also copy of the results of his recent camera endoscopy. That is not in this record. documented in this [facility]03-14-2025 Telephone encounter Note* Telephone Encounter - Lesly Barrios RN - 01/20/2025 5:11 PM EDT S: Patient's spoke with CAC nurse regarding greenish-love coating on tongue. B: Onset of symptoms/concern began 2-3 days ago. A: Patient has a greenish-love pimple-like coating on his tongue that is causing pain. Patient can barely eat. Patient was discharged from [facility] 2 days ago, admitted with flu [...] can be wiped off Protocols used: Mouth Oqifvzsk-XORBP-AT [facility], [id number] Miscellaneous Notes* Telephone Encounter - Lesly Barrios RN - 01/20/2025 5:11 PM EDT S: Patient's spoke with [facility] nurse regarding greenish-love coating on tongue. B: Onset of symptoms/concern began 2-3 days ago. A: Patient has a greenish-love pimple-like coating on his tongue that is causing pain. Patient can barely eat. Patient was discharged from [facility] 2 days ago, admitted with flu [...] can be wiped off Protocols used: Mouth Nbikulhi-UYGVV-KS documented in this encounterSElyria Memorial [id number] [facility]03-04-2025 Evaluation note* Diagnosis Onset Date Resolution Status [...] 9:40am Cancer of right kidney chronic Ma [facility] 2024 9:40am History of primary malignant neoplasm [...] is present chronic May 02, 2025 9:32am [facility] [employer] Work Phone: [phone] Telephone encounter Note* Telephone Encounter - Ofe Hale MA - 01/05/2025 8:40 AM EST Dick has seen these records [facility] [id number] Miscellaneous Notes* Telephone Encounter - Ofe Hale MA - 01/05/2025 8:40 AM EST Dick has seen these records * Telephone Encounter - Monalisa Sanford MA - 12/12/2024 1:52 PM EST Spoke with Dr Bing orantes and they will be faxing over this recent report, * Telephone Encounter - Heike Gamez - 12/12/2024 1:44 PM EST Name of caller: Nessa Contact phone number: [phone] Relationship to Patient: [facility] Provider: DO Dick Practice: [facility] Chief Complaint/Reason for Call: Nessa would like a call to discuss patients information Best time of day caller can be reached: PM Patient advised that office/PCP has 24-48 business hours to return their call: Yes documented in this encounterSElyria Memorial HospitalUknpia72-11-6710 Telephone encounter Note* Telephone Encounter - Janelle Montgomery - 01/02/2025 2:27 PM EST Records requested [facility], [id number] Telephone encounter Note* Telephone Encounter - Sierra Hernandez LPN - 01/02/2025 7:59 AM EST Noted. [facility], [id number] Miscellaneous Notes* Telephone Encounter - Sierra Hernandez LPN - 01/02/2025 7:59 AM EST Noted. * Telephone Encounter - Beatriz Damon RN - 12/30/2024 3:22 PM EST S: Luli, from [employer], spoke with [facility] nurse regarding stat lab results from todau B: Onset of symptoms/concern RAMON 12/30/24 A: [employer] calling lab results from today, no critical [...] RN - 12/30/2024 1:46 PM EST S: Llui, from [employer], spoke with [facility] nurse regarding stat lab [...] results Protocols used: PCP Call - No Uidpgl-BCBDU-CH documented in this [facility]02-21-2025 Telephone encounter Note* Telephone Encounter - Beatriz Damon RN - 12/30/2024 3:22 PM EST S: Luli from [employer], spoke with [facility] nurse regarding stat lab [...] understanding. No further need at this time. [facility], [id number] Miscellaneous Notes* Telephone Encounter - Beatriz Damon RN - 12/30/2024 3:22 PM EST S: Luli, from [employer], spoke with [facility] nurse regarding stat lab [...] 12/30/2024 1:46 PM EST S: Luli, from [employer], spoke with [facility] nurse regarding stat lab [...] results Protocols used: PCP Call - No Bxowvs-PFQJJ-CX documented in this [facility]02-21-2025 Telephone encounter Note* Telephone Encounter - Beatriz Damon RN - 12/30/2024 1:46 PM EST S: Luli, from [employer], spoke with [facility] nurse regarding stat lab [...] results Protocols used: PCP Call - No Ltsdrm-PFWDM-IW [facility], [id number] Telephone encounter Note* Telephone Encounter - Jacob Jenninsg DO - 12/30/2024 10:42 AM EST Staff to call this patient's senior officer Dr. Chambers in [place] to get a copy of the most recent colonoscopy and office notes about colonic AVM, lower GI bleeding, and possible treatments in the future. Also copy of the results of his recent camera endoscopy. That is not in this record. [facility] [id number] History of Present illness Narrative* Jacob Jennings DO - 12/30/2024 10:00 AM EST Images from the original note were not included. [facility] - [address] [facility] [id number] Visit type: Established Patient Reason for Visit: [...] Eliquis, patient should talk to oncologist and spinning operator on need for long-term treatment. Other orders [...] has been referred from Dr. Chambers in [place] to [facility] for evaluation. Apparently he had procedure for [...] MOUTH EVERY DAY 90 tablet 1 Lancets (Reef Point SystemsTouch Delica Plus Svpmfy97L) misc nitroglycerin (Nitrostat) 0.[address] 1 tablet (0.4 mg) under the tongue every 5 minutesas needed for chest pain. 90 tablet 0 Reef Point SystemsTouch Ultra test strip No current facility-administered medications [...] Amairani Coronary artery disease Father age 50 [place] - smoker Coronary artery disease Brother Kaiden age 47 [place] Objective: BP 118/78 Pulse 68 Temp 36.7 [...] Will obtain GI reports documented in this [facility]02-21-2025 Instructions* Patient Instructions* Jacob Jennings DO - 12/30/2024 10:00 AM EST Increase Prilosec to 40 mg daily for 1 week and then down to 20 mg a day. 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 Follow-up with oncology for CAT scan imaging as directed. documented in this [facility]02-19-2025 Telephone encounter Note* Telephone Encounter - Ginette Bentley RN - 12/28/2024 12:58 PM EST S: Patient's spoke with CAC nurse regarding vomiting, no appetite, fever B: Onset of symptoms/concern 1 month ago A: Has been vomiting, still running fever, decreased appetite, was admitted to [facility] on 12/14 out 12/16, still not [...] organ transplant, splenectomy, chronic steroids) Protocols used: Lvuhjiin-WFTYD-CD [facility], [id number] Miscellaneous Notes* Telephone Encounter - Ginette Bentley RN - 12/28/2024 12:58 PM EST S: Patient's spoke with CAC nurse regarding vomiting, no appetite, fever B: Onset of symptoms/concern 1 month ago A: Has been vomiting, still running fever, decreased appetite, was admitted to [facility] on 12/14 out 12/16, still not [...] organ transplant, splenectomy, chronic steroids) Protocols used: Okfzfnfb-OGAJN-UW documented in this [facility]02-12-2025 Evaluation note* Diagnosis Onset Date Resolution Status Admit Date Brain metastasis chronic December 21, 2024 8:47am Cancer of lower lobe of righ t lung chronic December 21 025 8:47am Cancer of right kidney chronic Fe [facility]2024 8:47am History of primary malignant neoplasm of [...] present chronic April 12, 2025 1 2:29pm [facility] Work Phone: 1(269) 309-852302-07-2025 [facility]02-05-2025 Evaluation note* Diagnosis Onset Date Resolution Status [...] present chronic April 12, 2025 1 2:29pm [facility] [employer] [facility] Work Phone: [phone]) [phone] Telephone encounter Note* Telephone Encounter - Monalisa Sanford MA - 12/12/2024 2:13 PM EST Being addressed in another encounter [facility] [id number] Miscellaneous Notes* Telephone Encounter - Monalisa Sanford [...] Friend they [place] to go [place] and she said she [place]'t drive to [place] , that she wants him referred back to Dr Osei in [place] and wants your opinion onthis she says she is also waiting on a call back from his cancer doctor as well. * Telephone Encounter - Leigh Casiano RN - 12/12/2024 10:10 AM EST S: The is calling the [facility] about a fever despite antibiotics. B: He [...] Protocols used: Sinus Infection on Antibiotic Follow-up [id number] documented in this [facility]02-03-2025 Telephone encounter Note* Telephone Encounter - Monalisa Sanford MA - 12/12/2024 1:52 PM EST Spoke with Dr Smart office and they will be faxing over this recent report, [facility], [id number] Miscellaneous Notes* Telephone Encounter - Monalisa Sanford MA - 12/12/2024 1:52 PM EST Spoke with Dr Smart office and they will be faxing over this recent report, * Telephone Encounter - Heike Gamez - 12/12/2024 1:44 PM EST Name of caller: Nessa Contact phone number: [phone] Relationship to Patient: [facility] Provider: DO Dick Practice: [facility] Chief Complaint/Reason for Call: Nessa would like a call to discuss patients information Best time of day caller can be reached: PM Patient advised that office/PCP has 24-48 business hours to return their call: Yes documented in this [facility]02-03-2025 Telephone encounter Note* Telephone Encounter - Heike Gamez - 12/12/2024 1:44 PM EST Name of caller: Nessa Contact phone number: [phone] Relationship to Patient: [facility] Provider: DO Dick Practice: [facility] Chief Complaint/Reason for Call: Nessa would like a call to discuss patients information Best time of day caller can be reached: PM Patient advised that office/PCP has 24-48 business hours to return their call: Yes [facility] [id number] Telephone encounter Note* Telephone Encounter - Monalisa Sanford MA - 12/12/2024 1:12 PM EST Left message with Dr Smart office to return call to the office. [facility], [id number] Telephone encounter Note* Telephone Encounter - Monalisa Sanford MA - 12/12/2024 11:35 AM EST Spoke with patient and she said they just found out he has 2 small lesions on his bowels and she is not happy with that gastro Dr Friend they want [place] to go [place] and she said she [place]'t drive to [place] , that she wants him referred back to Dr Osei in [place] and wants your opinion onthis she says she is also waiting on a call back from his cancer doctor as well. [place] [id number] Telephone encounter Note* Telephone Encounter - Leigh Casiano RN - 12/12/2024 10:10 AM EST S: The is calling the [facility] about a fever despite antibiotics. B: He [...] Protocols used: Sinus Infection on Antibiotic Follow-up [id number]-[id number] [facility], [id number] History of Present illness Narrative* Jacob Jennings, - 12/06/2024 11:00 AM EST Images from the original note were not included. [facility] - [address] [facility] [id number] Visit type: Established Patient Reason for Visit: [...] routine checkup and lab work. Did see handle lathe operator who confirmed he thinks the rash is [...] mL nebulizer solution Inhale 3 mL. Lancets (Vice [employer] Delica Plus Hyhqpl79Z) misc nitroglycerin (Nitrostat) 0.[address] 1 tablet (0.4 mg) under the tongue every 5 minutesas needed for chest pain. 90 tablet 0 omeprazole (PriLOSEC) [address] capsule Take 1 capsule (20 mg) by mouth Daily as needed (reflux). 90capsule 1 [employer] Ultra test strip pembrolizumab (Keytruda) 100 MG/4ML [...] Amairani Coronary artery disease Father age 50 [place] - smoker Coronary artery disease Brother Kaiden age 47 [place] Objective: BP 107/67 (BP Location: Right arm, [...] Neck supple. Normal eardrums. Love postnasal drip. Bantam oropharynx otherwise. No JVD or adenopathy of his neck. Heart is regular without ectopy or new murmurs. Lungs are diminished in both bases but no rales egophony or wheezing noted. Abdomen obese and nontender without ascites. Substantial macular rash of his entire chest. No peripheral leg edema. No cyanosis or pallor. documented in this [facility]01-28-2025 Telephone encounter Note* Telephone Encounter - Paige Villalobos RN - 12/06/2024 8:02 AM EST S: Patient's spoke with [facility] nurse regarding sinusitis. B: Onset of symptoms/concern: [...] Protocols used: Sinus Infection on Antibiotic Follow-up [id number]-[id number] [facility], [id number] Miscellaneous Notes* Telephone Encounter - Paige Villalobos [...] Protocols used: Sinus Infection on Antibiotic Follow-up [id number]-BHSEB-LQ documented in this [facility]01-27-2025 Telephone encounter Note* Telephone Encounter - [...] prior to picking up the medication: Yes [facility], [id number] Miscellaneous Notes* Telephone Encounter - Demetria Morgan [...] up the medication: Yes documented in this [facility]01-24-2025 Evaluation note* Diagnosis Onset Date Resolution [...] 9:40am Cancer of right kidney chronic Ma [facility] 2024 9:40am History of primary malignant neoplasm [...] right kidney chronic Ma y 2024 4:55pm [facility] Work Phone: 1(281) 703-929901-24-2025 Evaluation note* Diagnosis Onset Date Resolution Status [...] 2025 9:40am Cancer of right kidney chronic [facility] 2024 9:40am History of primary malignant neoplasm [...] right kidney chronic Ma y 2024 4:55pm [facility] Work Phone: 1(515) 334-784301-24-2025 Evaluation note* Diagnosis Onset Date Resolution Status [...] 9:40am Cancer of right kidney chronic Ma [facility] 2024 9:40am History of primary malignant neoplasm [...] present chronic March 29, 2025 1 0:30am [facility] Work Phone: 1(745) 578-466601-23-2025 Telephone encounter Note* Telephone Encounter - Sierra Hernandez LPN - 12/01/2024 1:20 PM EST Noted. [facility], [id number] Miscellaneous Notes* Telephone Encounter - Sierra Hernandez LPN - 12/01/2024 1:20 PM EST Noted. * Telephone Encounter - Kelly Jackman RN - 12/01/2024 12:12 PM EST Reason for Disposition Caller has already spoken with another triager and has no further questions Protocols used: No Contact or Duplicate Contact Clje-JALTN-LG * Telephone Encounter - Kelly Jackman RN - 12/01/2024 11:40 AM EST S: spoke with [facility] nurse regarding hives B: Onset of symptoms/concern 3 days ago Decadron 1/4 of 0.5mg A: states Cancer Dr Acevedo at [facility] hs been lowering his Decadron dose [...] (e.g., prednisone) > 24 hours Protocols used: Uaqez-ZDSVZ-BO documented in this [facility]01-23-2025 Telephone encounter Note* Telephone Encounter - Kelly Jackman RN - 12/01/2024 12:12 PM EST Reason for Disposition Caller has already spoken with another triager and has no further questions Protocols used: No Contact or Duplicate Contact Axga-ZCWIV-MI [facility] [id number] Telephone encounter Note* Telephone Encounter - Kelly Jackman RN - 12/01/2024 11:40 AM EST S: spoke with [facility] nurse regarding hives B: Onset of symptoms/concern 3 days ago Decadron 1/4 of 0.5mg A: states Cancer Dr Acevedo at [facility] hs been lowering his Decadron dose [...] (e.g., prednisone) > 24 hours Protocols used: Jovjb-XLETF-BV [facility] [id number] Telephone encounter Note* Telephone Encounter - Samuel Castillo - 11/21/2024 8:20 AM EST I spoke to patient spouse confirming follow up day times and location [facility]01-13-2025 Miscellaneous Notes* Telephone Encounter - Samuel Castillo - 11/21/2024 8:20 AM EST I spoke to patient spouse confirming follow up day times and location [facility] [place] History of Present illness Narrative* Francois Acevedo MD - 11/18/2024 10:00 AM EST NEUROSURGERY FOLLOW UP OFFICE NOTE Dr. Francois Robin. MD Kristina, FACS Date of visit: November 18, 2024 Patient Name: Mr.Larry Linda Arshad . Date of : 1955 Current Age: [age] year old Sex: male MRN/E# [id number] Last Office Visit: 10/18/2024 CHIEF COMPLAINT: Patient [...] SRS (SBRT) to the metastatic lesion at [facility]. Two months following treatment MRI was completed [...] weeks Radiation/ Oncology - Dr. Percy Tao ([place]) PAIN EVALUATION No data found in the [...] This note has been partially generated using [employer], a speech recognition software program, and may contain errors including punctuation, grammar, spelling, gender, and inappropriate words or phrases that pertain to the system. documented in this [facility] [place]-2025 NoteHNO ID: [id number] Author: FRANCOIS ACEVEDO MD Service: ? Author Type: Physician Type: Progress Notes Filed: 11/18/2024 10:05 Note Text: NEUROSURGERY FOLLOW UP OFFICE NOTE Dr. Francois Acevedo MD, [facility] Date of visit: November 18, 2024 Patient Name: Mr.Larry Linda Arshad . Date of : 1955 Current Age: [age] year old Sex: male MRN/E# [id number] Last Office Visit: 10/18/2024 CHIEF COMPLAINT: Patient [...] SRS (SBRT) to the metastatic lesion at [place]. Two months following treatment MRI was completed [...] some numbness / tingli (more content not included)...[facility]01-03-2025 History of Present illness Narrative* Jacqui [...] PATIENT PRESENTS WITH AN IMPLANTABLE OR ATTACHED PUBLIC HEALTH DENTIST: No RADIOLOGY DEPARTMENT: MR; Exam(s) Completed: Head: Routine Brain with Perfusion PERIPHERAL IV DATA: Site assessment: Clean,Dry and Intact, Site disposition Discontinued SIGNED BY: RT Nara(Raphael) November 11, 2024 11:14 AM documented in this [facility] [place]-2025 NoteHNO ID: [id number] Author: JACQUI MOORE RT(R) Service: ? Author [...] PATIENT PRESENTS WITH AN IMPLANTABLE OR ATTACHED PUBLIC HEALTH DENTIST: No RADIOLOGY DEPARTMENT: MR; Exam(s) Completed: Head: Routine Brain with Perfusion PERIPHERAL IV DATA: Site assessment: Clean,Dry and Intact, Site disposition Discontinued SIGNED BY: Jacqui Moore, RT(R) November 11, 2024 11:14 [facility]01-03-2025 NoteHNO ID: [id number] Author: MARCY EUGENE RN Service: ? Author Type: Registered Nurse Type: Progress Notes Filed: 11/11/2024 10:55 Note Text: Patient is here for IVAD port flush per [facility] protocol. IVAD is located in right upper chest. Site cleansed with Chloraprep IVAD accessed with a #20 gauge 3/4 non-coring Gripper needle Blood Return: Good Flushed with: 20 ml Normal Saline Non-coring needle left intact for CT. Opsite applied to puncture site. Port site negative for redness, edema or tenderness. Patient tolerated procedure well.[facility]01-03-2025 History of Present illness Narrative* Marcy Eugene RN - 11/11/2024 10:51 AM EST Patient is here for IVAD port flush per [facility] protocol. IVAD is located in right upper chest. Site cleansed with Chloraprep IVAD accessed with a #20 gauge 3/4 non-coring Gripper needle Blood Return: Good Flushed with: 20 ml Normal Saline Non-coring needle left intact for CT. Opsite applied to puncture site. Port site negative for redness, edema or tenderness. Patient tolerated procedure well. documented in this [facility] [place]12-12-2024 History of Present illness Narrative* Jacob Jennings DO - 10/20/2024 1:00 PM EST Images from the original note were not included. [address] [facility] [phone] Visit type: Established Patient Reason [...] recommendations for colonoscopy 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 Subjective: Patient [...] (Patient not taking: Reported on 10/20/2024) Lancets (Reef Point SystemsTouch Delica Plus [id number]) misc USE TO TEST BLOOD SUGAR 2 TIMES A DAY (Patient not taking: Reported on 09/19/2024) [employer] Ultra test strip USE TO TEST BLOOD [...] W/ FUSION 02/2024 Dr. Sutherland, C3-5 , [place] COLONOSCOPY 02/2019 med- small polyp- due 2023 [...] Amairani Coronary artery disease Father age 50 [place] - smoker Coronary artery disease Brother Kaiden age 47 [place] Objective: BP 134/78 Pulse 77 Temp 37.2 [...] edema. Pulses are adequate. documented in this [facility]12-12-2024 Instructions* Patient Instructions* Jacob Jennings DO - 10/20/2024 1:00 PM EST Follow up with Dr. Chambers on anemia and upper and lower endoscopy documented in this [place] [id number] Telephone encounter Note* Telephone Encounter - Katie Peck MA - 10/10/2024 3:56 PM EST Recent Visits Date Type Provider Dept 09/19/24 Office Visit Jacob Jennings DO [facility] 04/19/24 Office Visit Jacob Jennings DO [facility] 01/07/24 Office Visit Jacob Jennings DO [facility] 11/24/23 Office Visit Em Philip PA-C [facility] Showing recent visits within past 365 days and meeting all other requirements Future Appointments Date Type Provider Dept 10/20/24 [address] Jacob Jennings DO [facility] Showing future appointments within next [...] recent labs completed in chart? No None [facility], [id number] Miscellaneous Notes* Telephone Encounter - Katie Peck MA - 10/10/2024 3:56 PM EST Recent Visits Date Type Provider Dept 09/19/24 Office Visit Jacob Jennings, DO [facility] 04/19/24 Office Visit Jacob Jennings, DO [facility] 01/07/24 Office Visit Jacob Jennings, DO [facility] 11/24/23 Office Visit Em Philip PA-C [facility] Showing recent visits within past 365 days and meeting all other requirements Future Appointments Date Type Provider Dept 10/20/24 Appointment Jacob Jennings DO [facility] Showing future appointments within next 90 days [...] in chart? No None documented in this [facility]11-14-2024 Telephone encounter Note* Telephone Encounter - Monalisa Sanford MA - 09/22/2024 4:46 PM EST Rx loaded [facility], [id number] Miscellaneous Notes* Telephone Encounter - Monalisa Sanford MA - 09/22/2024 4:46 PM EST Rx loaded documented in this encounterSElyria Memorial HospitalQquruw68-46-0176 History of Present illness Narrative* Jacob Robin Piperpiper, - 09/19/2024 2:30 PM EST Images from the original note were not included. [facility] - [address] [facility] [phone] Visit type: Established Patient Reason [...] care and Keflex Coronary artery disease involving swinomish coronary artery of swinomish heart without angina pectoris Lung cancer metastatic [...] 90 tablet 1 Lancets (OneTouch Delica Plus [id number]) misc USE TO TEST BLOOD SUGAR 2 [...] W/ FUSION 02/2024 Dr. Sutherland, C3-5 , [place] COLONOSCOPY 02/2019 Ahmed- small polyp- due 2023 [...] Amairani Coronary artery disease Father age 50 [place] - smoker Coronary artery disease Brother Kaiden age 47 [place] Objective: BP 130/78 (BP Location: Right arm, [...] pink without appreciable edema. documented in this [facility]11-11-2024 Instructions* Patient Instructions* Jacob Jennings DO - 09/19/2024 2:30 PM EST Call with any worsening of this left sided neck lesion. Apply first-aid ointment as directed. documented in this [place] [address]-08-2024 Telephone encounter Note* Telephone Encounter - Katie Peck MA - 09/16/2024 9:30 AM EST Noted [place] [id number] Miscellaneous Notes* Telephone Encounter - Katie Peck MA - 09/16/2024 9:30 AM EST Noted * Telephone Encounter - Anita Bonilla RN - 09/16/2024 9:13 AM EST S: Patient 's spoke with [facility] nurse regarding an appointment. B: Onset of [...] used: Boil (Skin Abscess)-ADULT-[place] documented in this [facility]11-08-2024 Telephone encounter Note* Telephone Encounter - [...] be seen Protocols used: Boil (Skin Abscess)-ADULT-[place] [facility] [id number] Telephone encounter Note* Telephone Encounter - Clementina [...] prior to picking up the medication: Yes [facility], [id number] Miscellaneous Notes* Telephone Encounter - Clementina Vargas [...] up the medication: Yes documented in this [facility]07-12-2024 History of Present illness Narrative* Francois Acevedo MD - 05/20/2024 10:15 AM EDT NEUROSURGERY FOLLOW UP OFFICE NOTE Dr. Francois Acevedo MD, [facility] Date of visit: May 20, 2024 Patient Name: Mr.Larry Linda Arshad Sr. Date of : 1955 Current Age: [age] year old Sex: male MRN/E# [id number] Last Office Visit: February 19, 2024 CHIEF [...] SRS (SBRT) to the metastatic lesion at [facility]. Two months following treatment MRI was completed [...] weeks Radiation/ Oncology - Dr. Percy Tao ([place]) PAIN EVALUATION No data found in the [...] This note has been partially generated using [employer], a speech recognition software program, and may contain errors including punctuation, grammar, spelling, gender, and inappropriate words or phrases that pertain to the system. documented in this encounterSelect [facility] [place]07-09-2024 History of Present illness Narrative* Atif Mchugh [...] PATIENT PRESENTS WITH AN IMPLANTABLE OR ATTACHED PUBLIC HEALTH DENTIST: port ALLERGIES: Reviewed and unchanged CONTRAST ALLERGY: [...] 2024 TIME: 10:55 AM documented in this encounterSelect [facility] [place]06-11-2024 History of Present illness Narrative* Jacob Jennings DO - 04/19/2024 1:30 PM EDT Images from the original note were not included. [facility] [address] [place] [address] [facility] [phone] Visit type: Established Patient Reason [...] done x 3 Coronary artery disease involving swinomish coronary artery of swinomish heart without angina pectoris Comments: Stable, continue [...] mg by mouth 3 times daily. Lancets (Vice Mediauch Delica Plus Merier55Y) misc USE TO TEST BLOOD SUGAR 2 [...] Amairani Coronary artery disease Father age 50 [place] - smoker Coronary artery disease Brother Kaiden age 47 [place] Objective: BP 136/76 Pulse 68 Ht 5' [...] have no appreciable edema. documented in this [facility]06-07-2024 Telephone encounter Note* Telephone Encounter - [...] prior to picking up the medication: Yes [facility] [id number] Miscellaneous Notes* Telephone Encounter - Luci Uribe [...] up the medication: Yes documented in this [facility]05-01-2024 Consult note Author Shelley Del Castillo [facility] March 09, 2024 12:23pm Note Date/Time March 09, 2024 12:23p [facility] Medical Records Department [address] [place] [address] Counseling Note - Pharmacy 03/09/24 1219 MR#: [id number] Acct: [id number] Name: KENN ARSHAD Rep #:[id number] : 1955 68 From: Shelley Del Castillo PCP: Dr. Jacob Jennings, DO Status:AD M [facility] Y [facility] performed discharge medication reconciliation and counseling for this patient. Patient requested meds to beds, This [facility] called retail and requested delivery. 1. ACETAMINOPHEN [...] Signature (if applicable): Date CC: ~ Signed [facility] Work Phone: 1(797) 921-824505-01-2024 Progress note Author Greg Sutherland [facility] March 09, 2024 9:27am Note Date/Time March 09, 2024 9:27am [facility] Medical Records Department [address] [place] [address] Progress Note - Orthopedic 03/09/24 0924 MR#: [id number] Acct: [id number] Name: KENN ARSHAD Rep #:[id number] : 1955 68 From: Greg Sutherland MD PCP: Dr. Jacob Jennings, DO Status:AD M EDGARD Location: MS3 PH881-8 Subjective Subjective Postop day 1 status post [...] I remove the dressing and remove the [place] drain and applied new gauze and Tegaderm [...] Cosigner Signature (if applicable): CC: ~ Signed [facility] Work Phone: 1(904) 982-666005-01-2024 Progress note Author Antwan Pitts [facility] March 09, 2024 8:29am Note Date/Time March 09, 2024 7:40am [facility] Medical Records Department [address] [place] [address] Progress Note - Hospitalist 03/09/24 0738 MR#: [id number] Acct: [id number] Name: ARSHADKENN Linda Rep #:[id number] : 1955 68 From: Antwan Pitts MD PCP: Dr. Jacob Jennings, DO Status:AD M [facility] Location: ID3 [id number] Reason for Visit Reason for Visit: Diagnoses [...] documentation, 35Minutes Charges/Coding Visit Charges Inpatient E&M: 59114 Subs Hosp L2 03/09/24 0829 <Electronically signed by Antwan Pitts MD> Cosigner Signature (if applicable): CC: ~ Signed [facility] Work Phone: 1(832) 339-627804-30-2024 Consult note Author Antwan Epps [facility] March 08, 2024 7:31pm Note Date/Time March 08, 2024 4:2 1pm [facility] Medical Records Department [address] [place] [address] Consultation - Hospitalist 03/08/24 1608 MR#: [id number] Acct: [id number] Name: KENN ARSHAD Rep #:[id number] : 1955 68 From: Antwan Baron DO PCP: Dr. Jacob Jennings, DO Status:AD M [facility] Location: MS3 AB445-2 Assessment & Plan Assessment/Plan (1) Essential hypertension: [...] to participate in care of your patient. 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 Greg Sutherland MD; Dr. Jacob Jennings DO~ Signed [facility] Work Phone: 1(428) 279-188504-30-2024 Procedure [facility] 03-08-2024 History and physical note Author Greg Sutherland [facility] March 08, 2024 10:43am Note Date/Time March 08, 2024 10: 43am [facility] Medical Records Department [address] [place] [address] History & Physical Exam 03/08/24 1043 MR#: [id number] Acct: [id number] Name: KENN ARSHAD Rep #:[id number] : 1955 68 From: Greg Sutherland MD PCP: Dr. Jacob Jennings DO Status:[facility] Location: [place] [address] History and Physical Date of Admission: 03/08/24 MR#: [id number] Acct: [id number] Name: KENN ARSHAD Rep #: [id number] : 1955 Provider: Dr. 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 Kenn Is here for [...] Sutherland MD; Dr. Jacob Jennings DO~ Signed [facility] Work Phone: [phone]) 487-727704-12-2024 History of Present illness Narrative* Francois Acevedo MD - 02/19/2024 10:30 AM EDT NEUROSURGERY FOLLOW UP OFFICE NOTE Dr. Francois Acevedo MD, FACS Date of visit: February 19, 2024 Patient Name: Mr.Larry Linda Arshad . Date of : 1955 Current Age: [age] year old Sex: male MRN/E# [id number] Last Office Visit: November 17, 2023 CHIEF [...] SRS (SBRT) to the metastatic lesion at [facility]. Two months following treatment MRI was completed [...] TREATMENT TEAM: Hematology / Oncology - Dr. Agnela Rodriguez Radiation/ Oncology - Dr. Percy Tao ([facility]) PAIN EVALUATION No data found in the [...] renal cell carcinoma that was managed at [facility] and we are following him for post [...] This note has been partially generated using [employer], a speech recognition software program, and may contain errors including punctuation, grammar, spelling, gender, and inappropriate words or phrases that pertain to the system. documented in this encounterSelect [facility] [place]04-08-2024 History of Present illness Narrative* Yahaira Smith [...] PATIENT PRESENTS WITH AN IMPLANTABLE OR ATTACHED PUBLIC HEALTH DENTIST: No ALLERGIES: Reviewed and unchanged CONTRAST ALLERGY: NO. EXAM: MRI - CONTRAST TYPE: GROUP II PERIPHERAL IV DATA: Ambulatory: A peripheral IV was started in the Right hand with a Angio cath: 20gauge. RADIOLOGY DEPARTMENT: MR; Exam(s) Completed: Head: Routine Brain with Perfusion SIGNATURE: RT Jordon(R) PATIENT NAME: Kenn Arshad . DATE: February 15, 2024 TIME: 10:28 AM documented in this encounterSelect Medical Specialty [facility] [place]03-01-2024 Telephone encounter Note * Telephone Encounter - Celsa Yoder - 01/08/2024 9:17 AM EST Referral pended for doctor's signature [facility], [id number] Miscellaneous Notes* Telephone Encounter - Celsa Yoder - 01/08/2024 9:17 AM EST Referral pended for doctor's signature documented in this encounterSElyria Memorial [id number] History of Present illness Narrative* Jacob Jennings, DO - 01/07/2024 2:00 PM EST Images from the original note were not included. [facility] [address] [facility] [address] Visit type: Established Patient Reason [...] - Lipid panel Coronary artery disease involving swinomish coronary artery of swinomish heart without angina pectoris Comments: Stable, continue [...] Inhale 3 mL. Lancets (OneTouch Delica Plus Qiwicr49E) [facility] USE TO TEST BLOOD SUGAR 2 TIMES A DAY nitroglycerin (Nitrostat) 0.[address] 0.4 mg under the tongue. [employer] SystemsTouch Ultra test strip USE TO TEST BLOOD [...] Amairani Coronary artery disease Father age 50 [place] - smoker Coronary artery disease Brother Kaiden age 47 [place] Objective: BP 122/60 Pulse 77 Temp 37.6 [...] normal without focal deficits. documented in this [facility]02-29-2024 History of Present illness Narrative* Jacob Jennings DO - 01/07/2024 2:00 PM EST Images from the original note were not included. [facility] [address] [place] [address] [address] [facility] [address] [facility] [address] Visit type: Established Patient Reason [...] - Lipid panel Coronary artery disease involving swinomish coronary artery of swinomish heart without angina pectoris Comments: Stable, continue [...] mL nebulizer solution Inhale 3 mL. Lancets ([employer] Delica Plus Svdlah35W) [facility] USE TO TEST BLOOD SUGAR 2 TIMES A DAY nitroglycerin (Nitrostat) 0.[address] 0.4 mg under the tongue. [employer] Ultra test strip USE TO TEST BLOOD [...] Amairani Coronary artery disease Father age 50 [place] - smoker Coronary artery disease Brother Kaiden age 47 [place] Objective: BP 122/60 Pulse 77 Temp 37.6 [...] normal without focal deficits. documented in this [facility]02-29-2024 Miscellaneous Notes* Addendum Note - Rosina Connor - 01/07/2024 2:00 PM ESTAddended by: ROSINA CONNOR on: 01/09/2024 10:26 AM Modules accepted: Orders documented in this [facility]02-29-2024 Note* Addendum Note - Rosina Connor - 01/07/2024 2:00 PM ESTAddended by: ROSINA CONNOR on: 01/09/2024 10:26 AM Modules accepted: Orders [facility], [id number] History of Present illness Narrative* Em Philip PA-C - 11/24/2023 3:20 PM EST Images from the original note were not included. [facility] [address] [facility] [address] [facility] [address] Dept: [phone] Dept Loc: [phone] Visit type: Established Patient Reason for Visit: [...] currently anticoagulated with Eliquis who contacted the [facility] for immediate same-day appointment evaluation for concerns that he has had 3 nosebleeds and having a difficult time getting the bleeding under control. Although he states when he called he was not actively having any bleeding. Patient states he had problems before heis to see an nuclear medicine specialist at [facility] it has been sometime he is to [...] 0.1 % cream Lancets (OneTouch Delica Plus Zvgnkj20H) [facility] USE TO TEST BLOOD SUGAR 2 [...] [facility] also H/O colonoscopy 02/2019 [facility]- small polyp- due 2023 History of colon polyps 2000 [facility] History of renal carcinoma 07/[address] Tariq History of SCC (squamous cell carcinoma) of skin 2011 scalp - [facility] Hypercholesterolemia LDL PAD (peripheral artery disease) (HCC) [...] Right adrenal mets , Dr. Cuevas, [facility], [facility] oncologist Social History Tobacco Use Smoking status: Former Packs/day: 1.5 Types: Cigarettes Start date: 02/01/1981 Quit date: 03/12/2021 Years since quittin.7 Smokeless tobacco: Never Substance Use Topics Alcohol use: Yes Alcohol/week: 14.0 standard drinks of alcohol Past Surgical History: Procedure Laterality Date COLONOSCOPY 02/2019 [facility]- small polyp- due 2023 COLONOSCOPY 2013 [facility] CORONARY ANGIOPLASTY WITH STENT PLACEMENT 2003 [...] Amairani Coronary artery disease Father age 50 [place] - smoker Coronary artery disease Brother Kaiden age 47 [place] Objective BP 138/64 (BP Location: Left arm, [...] prior to signing but minor errors in food services coordinator may have occurred. documented in this [facility]01-16-2024 Telephone encounter Note* Telephone Encounter - Merlene Andino RN - 11/24/2023 12:25 PM EST S: Patient spoke with [facility] nurse regarding nose bleeds B: Onset [...] known bleeding disorder (e.g., thrombocytopenia) Protocols used: Cxqondraf-GODNW-PZ [facility], [id number] Miscellaneous Notes* Telephone Encounter - Merlene Andino [...] known bleeding disorder (e.g., thrombocytopenia) Protocols used: Odzhyhisz-CTQMR-NC documented in this [facility]12-11-2023 NoteHNO ID: [id number] Author: aCrin Neri RT(R) Service: Radiology Author Type: Technologist [...] Sr. DATE: October 19, 2023 TIME: 7:02 PMMer[facility] [id number] History of Present illness Narrative* Carin Neri [...] 2023 TIME: 7:02 PM documented in this encounterSelect Medical Specialty [facility] [place]12-11-2023 Miscellaneous Notes* Telephone Encounter - Rose Troncoso - 10/19/2023 3:41 PM EST After speaking with patient's , I noticed [facility] (where is was scheduled for [...] He was seen in the ED at [facility]. They did a CT scan (I called and requested it be pushed to [facility] for us to review). Patient is [...] able. She was appreciative. documented in this encounterSelect Medical Specialty Hospital [facility] [place]10-31-2023 Miscellaneous Notes* Telephone Encounter - Samuel Castillo - 09/08/2023 12:42 PM EDT I called and spoke to patients regarding the message that was left for patients meds. The patients understood documented in this encounterSelect Medical Specialty Hospital [facility] [place]10-31-2023 Miscellaneous Notes* Telephone Encounter - Kesah Dey APRN.CNP - 09/08/2023 8:58 AM EDT [...] or concerns. KALEY Hurtado Neurosurgery Nurse Practitioner [facility] 8:59 AM 09/08/2023 documented in this encounterSelect Medical Specialty Hospital [facility] [place]10-26-2023 Miscellaneous Notes* Telephone Encounter - Kesha Dey APRN.CNP - 09/03/2023 12:43 PM EDT Received a call from the patient's Haylie. She reported that Kenn was diagnosed with pneumonia and placed on oral prednisone by his spinning operator. She was wondering if he should continue [...] or not. KALEY Hurtado Neurosurgery Nurse Practitioner [facility] 12:44 PM 09/03/2023 documented in this encounterSelect Medical Specialty Hospital [facility] [place]10-17-2023 Miscellaneous Notes* Telephone Encounter - Kesha Dey APRN.CNP - 08/25/2023 1:12 PM EDT Spoke to patient via phone. States he is tolerating Decadron 0.5 mg BID. I discussed this with Dr. Acevedo who said that Kenn should stay on this dosage for now. KALEY Hurtado Neurosurgery Nurse Practitioner [facility] 1:13 PM 08/25/2023 documented in this encounterSelect Medical Specialty Hospital [facility] [place]10-10-2023 Miscellaneous Notes* Telephone Encounter - Kesha Dey [...] detail. Kesha Dey APRN-THANH Neurosurgery Nurse Practitioner [facility] 11:55 AM 08/18/2023 documented in this encounterSelect Medical Specialty Hospital [facility] [place]10-06-2023 Miscellaneous Notes* Telephone Encounter - Samuel Castillo - 08/14/2023 11:05 AM EDT I returned patients vm and confirmed follow up phone appt on 08/18/23 at 9:30 am documented in this encounterSelect Medical Specialty Hospital [facility] [place]09-29-2023 History of Present illness Narrative* Francois Acevedo MD - 08/07/2023 10:30 AM EDT NEUROSURGERY FOLLOW UP OFFICE NOTE Dr. Francois Acevdeo MD, FACS Date of visit: August 07, 2023 Patient Name: Mr.Larry Linda Arshad . Date of : 1955 Current Age: [age] year old Sex: male MRN/E# [id number] Last Office Visit: 06/09/2023 CHIEF COMPLAINT: Patient [...] Oncology Dr. Percy Tao - Radiation/ Oncologist ([place]) PAIN EVALUATION No data found in the [...] parietal trigonal area that was treated at [facility] withSRS and presently is on decreasing Decadron. [...] This note has been partially generated using [employer], a speech recognition software program, and may contain errors including punctuation, grammar, spelling, gender, and inappropriate words or phrases that pertain to the system. documented in this encounterSelect Medical Specialty Hospital [facility] [place]09-26-2023 NoteHNO ID: [id number] Author: Carin Neri RT(R) Service: Radiology Author [...] . DATE: August 04, 2023 TIME: 10:56 AMMercy Health [facility] Regional Medical [id number] Miscellaneous Notes* Telephone Encounter - Kesha Dey APRN.[facility] - 07/07/2023 1:10 PM EDT Contacted patient and spouse via phone. Mr. Arshad is feeling much better since resuming Dexamethasone 1 mg PO TID. Discussed with Dr. Acevedo who recommends continuing the medication until his scheduled follow up. New Rx sent to pharmacy on file. KALEY Hurtado Neurosurgery Nurse Practitioner [facility] 1:12 PM 07/07/2023 documented in this encounterSelect Medical Specialty [facility] [place]08-25-2023 Miscellaneous Notes* Telephone Encounter - Kesha Dey [...] in detail. KALEY Hurtado Neurosurgery Nurse Practitioner [facility] 1:05 PM 07/03/2023 documented in this encounterSelect Medical Specialty Hospital [facility] [place]08-01-2023 Instructions* Patient Instructions* Kesha Dey APRN.CNP - 06/09/2023 12:01 PM EDT Decrease Decadron to 1 mg daily for 1 week then, 1/2 mg daily for 1 week then 1/2 mg every other day for 1 week. documented in this encounterSelect Medical Specialty [facility] [place]08-01-2023 History of Present illness Narrative* Francois Acevedo MD - 06/09/2023 11:30 AM EDT NEUROSURGERY FOLLOW UP OFFICE NOTE Dr. Francois Acevedo MD, FACS Date of visit: June 09, 2023 Patient Name: Mr.Larry Linda Arshad Sr. Date of : 1955 Current Age: [age] year old Sex: male MRN/E# [id number] Last Office Visit: 05/29/2023 CHIEF COMPLAINT: Patient [...] of 2400 cGy in 1 fraction at [facility]. Two months f ollowing treatment repeat [...] Oncology Dr. Percy Tao - Radiation/ Oncologist ([place]) PAIN EVALUATION No data found in the [...] left parietal tumor with stereotactic radiosurgery in [place] who presented on his last visit for [...] PROCEDURE) - DEXAMETHASONE 1 MG TABLET Francois cAevedo MD FOLLOW UP: Return in about 8 weeks (around 08/06/2023) for review of MRI. Please Note: This note has been partially generated using [employer], a speech recognition software program, and may contain errors including punctuation, grammar, spelling, gender, and inappropriate words or phrases that pertain to the system. documented in this encounterSelect Medical Specialty Hospital [facility] [place]07-29-2023 NoteHNO ID: [id number] Author: Germania Gaines, infectious waste technician Service: Radiology Author Type: Acute Care Assistant Type: Progress Notes Filed: 06/06/2023 11:02 AM [...] with Perfusion SIGNATURE: NIURKA Martin PATIENT NAME: eKnn Arshad Sr. DATE: June 06, 2023 TIME: 11:01 AMMercy Health Springfield Regional Medical [id number] History of Present illness Narrative* Germania Gaines [...] 2023 TIME: 11:01 AM documented in this encounterSelect Medical Specialty Hospital [facility] [place]07-19-2023 Miscellaneous Notes* Telephone Encounter - Rose Troncoso - 05/27/2023 12:43 PM EDT Received referral from Dr. Percy Tao at [facility]. Requesting STAT consult for brain mets. Called patient to discuss scheduling, but had to leave a voicemail. Left my direct contact info and asked that he return my call at his earliest convenience. documented in this encounterSelect Medical Specialty [facility] [place]07-17-2023 Telephone encounter Note * Telephone Encounter - Sol Fofana RN - 05/25/2023 8:52 AM EDT Marichuy called back. Re-read voice mail from Sharmin of Dr Baron's note. Marichuy will call back with any other questions or concerns. [facility], [id number] Miscellaneous Notes* Telephone Encounter - Sol Fofana [...] received a voicemail from Marichuy at the [facility] stating that they received a phone call from the patient stating that he saw Dr. Fields and his records had not been transferredover for review for his appointment at our office. There is an MRI Brain report from [facility] scanned into media and the fax cover sheet stated that the most recent MRI completed at [facility] was pushed through to PACS. Please verify that records were received and images available from PACS and call Marichuy to confirm. Marichuy can be reached at [phone], option 6 documented in this encounterSElyria Memorial [id number] Telephone encounter Note* Telephone Encounter - Shireen Zamudio MA - 05/22/2023 1:20 PM EDT LM on for Marichuy. [facility], [id number] Miscellaneous Notes* Telephone Encounter - Shireen Zamudio [...] received a voicemail from Marichuy at the [facility] stating that they received a phone call from the patient stating that he saw Dr. Fields and his records had not been transferredover for review for his appointment at our office. There is an MRI Brain report from [facility] scanned into media and the fax cover sheet stated that the most recent MRI completed at [facility] was pushed through to [facility]. Please verify that records were received and images available from PACS and call Marichuy to confirm. Marichuy can be reached at [phone], option 6 documented in this [facility] [id number] Telephone encounter Note* Telephone Encounter - Kimberly Owens PA-C - 05/22/2023 11:[address] Baron reviewed the MRI. 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 The patient can follow upwith oncology as recommended by Dr. Fields. [employer] Phone: [phone]) 433-530607-14-2023 Telephone encounter Note* Telephone Encounter - Shireen Zamudio MA - 05/22/2023 9:54 AM EDT LM on Marichuy's VM letting her know that we did receive the mri in pacs. [id number] Telephone encounter Note* Telephone Encounter - Shireen Zamudio MA - 05/22/2023 9:26 AM EDT Left message on voicemail asking Marichuy to return my call and left the phone number that I can be reached. [id number] Telephone encounter Note* Telephone Encounter - Nicole Morales MA - 05/22/2023 7:57 AM EDT Office received a voicemail from Marichuy at the [facility] stating that they received a phone call from the patient stating that he saw Dr. Fields and his records had not been transferredover for review for his appointment at our office. There is an MRI Brain report from [facility] scanned into media and the fax cover sheet stated that the most recent MRI completed at [facility] was pushed through to PACS. Please verify that records were received and images available from PACS and call Marichuy to confirm. Marichuy can be reached at [phone], option 6 [employer] [id number] History of Present illness Narrative* Pineda Fields [...] months ago. He has [facility]. 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 Chief Complaint Patient presents with New Patient Brain lesion Past Medical History: Past Medical History: Diagnosis Date Adenocarcinoma of right lung (HCC) 02/2021 Aortic stenosis, mild 06/2002 Bleeding ulcer Brain lesion CAD (coronary artery disease) [address] Mcguire, neg stress test 08/26 at [facility] COPD (chronic obstructive pulmonary disease) (HCC) per [facility] (smoker) COVID-19 virus infection 10/2021 DDD (degenerative disc disease), cervical NSAID therapy Essential hypertension 1993 Ex-smoker for less than 1 year 03/2021 Family history of diabetes mellitus sister Gastric polyps 12/[address] Ramírez, small HH also H/O colonoscopy 02/2019 [facility]- small polyp- due 2023 History of colon polyps 2000 [facility] History of renal carcinoma 07/[address] Tariq History of SCC (squamous cell carcinoma) of skin 2011 scalp - [facility] Hypercholesterolemia LDL PAD (peripheral artery disease) (HCC) 07/2019 Rt worse than Lt, pt defering angiogram rec per Dr. 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 Cuevas, [facility], [facility] oncologist Past Surgical History: Past Surgical History: Procedure Laterality Date COLONOSCOPY 02/2019 [facility]- small polyp- due 2023 COLONOSCOPY 2013 [facility] CORONARY ANGIOPLASTY WITH STENT PLACEMENT 2003 [...] Amairani Coronary artery disease Father age 50 [place] - smoker Coronary artery disease Brother Kaiden age 47 [place] Review of Systems Constitutional: Negative. HENT: Negative. [...] Right achilles: 2+ Left achilles: 2+ Right sandblaster supervisor: 2+ Left sandblaster supervisor: 2+ Results Labs: Last 24hrs No results [...] (posterior reversible encephalopathy syndrome) documented in this [facility]06-28-2023 Discharge summary Author Khalif Quevedo [facility] May 06, 2023 11:23am Note Date/Time May 06, 2023 11:2 3am [facility] Medical Records Department [address] [place] [id number] Discharge Summary 05/06/23 1121 MR#: [id number] Acct: [id number] Name: KENN ARSHAD Rep #:[id number] : 1955 67 From: Khalif Quevedo DO PCP: Dr. Jacob Jennings DO Status:AD M IN [place] [facility] [place] [id number] Providers Date of Admission: 05/02/23 Primary Care Physician: Dr. Jacob Jennings DO Consultations 05/02/23 16:41 Consult: Cardroom Plastic Card Grader / Pulmonary Medicine Routine Consulting Provider: [facility] Reason for Consult: hypoxia/SOB EMERGENT Consult: No Notified: Yes Date Notified: 05/02/23 Time Notified: 17:26 Method of Notification: Text 05/03/23 12:16 Consult: Gastroenterology Routine Consulting Provider: [facility] Reason for Consult: GIB EMERGENT Consult: [...] May 07 ?July 30,? 2020 (5 cycles)? DE but held in August 2021 due to ELANA.? Resumed November 26, 2021 Stereotactic brain radiation at [facility] October 28, 2022 a single fraction with10 [...] weeks. BID PPI Plan Chronic conditions: * CAD/hypertension/dmfczdbxooorzo-AMH-UVM-LPLB w/ 2.25 x 18 mm Biodivysio Stent [...] and greater than 100,000 * Aortic valve sbcesbkb-Bhtb-Fb acute issues-Most recent echocardiogram shows stability * [...] 35 Hospital Course: Patient presents with hypoxia. Mobile to be due to his underlying COPD [...] Dr. Khalif Quevedo Referrals / Follow Up: [facility] [Provider Group] - Within 3 Months *[facility] [Provider Group] - Within 2 Weeks [facility] [Provider Group] - 05/21/23 9:15 am Jacob Jennings DO [Primary Care Provider] - Within 2 Weeks Disposition Disposition (needs filled in before D/C Order can be placed): Home, Self Care Charges/Coding Visit Charges Inpatient E&M: 49390 Disch Hosp >30min 05/06/23 1123 <Electronically signed by Khalif Quevedo DO> Cosigner Signature (if applicable): CC: Dr. Khalif Quevedo DO; Dr. Jacob Jennings DO~ Signed [facility] Work Phone: 1(657) 240-366706-28-2023 Discharge summary Author Khalif Quevedo [facility] May 06, 2023 11:21am Note Date/Time May 06, 2023 11:0 5am [facility] Medical Records Department [address] [place] [address] Instructions for Home/Discharge Instructions 05/06/23 1105 MR#: [id number] Acct: [id number] Name: KENN ARSHAD Rep #:[id number] : 1955 67 From: Khalif Quevedo DO [...] Dr. Khalif Quevedo Referrals / Follow Up: [facility] [Provider Group] - Within 3 Months *[facility] [Provider Group] - Within 2 Weeks [facility] [Provider Group] - 05/21/23 9:15 am Jacob Jennings DO [Primary Care Provider] - Within 2 Weeks Disposition Disposition (needs filled in before D/C Order can be placed): Home, Self Care 05/06/23 1121<Electronically signed by Khalif Quevedo DO>Khalif Quevedo DO CC: DIAMOND GRINDER-Abraham Dunne; Dr. Thaddeus Patel MD; Dr. Benito Malcolm DO; Dr. Jacob Jennings DO; Dr. Tara Mae DO; Dr. Tu Zhang MD; Dr. Jm Varner MD ~ Signed [facility] Work Phone: 1(932) 603-410406-28-2023 Progress note Author Khalif [facility] May 06, 2023 11:05am Note Date/Time May 06, 2023 7:52 am [facility] Medical Records Department [address] [place] [address] Progress Note - Hospitalist 05/06/23 0748 MR#: [id number] Acct: [id number] Name: KENN ARSHAD Rep #:[id number] : 1955 67 From: Khalif Quevedo DO PCP: Dr. Jacob Jennings DO Status:AD M IN [place] [facility] [place]636-6 Reason for Visit Reason for Visit: Diagnoses [...] agent May 07 ?July 30,2020 (5 cycles)? DE but held in August 2021 due to ELANA.? Resumed November 26, 2021 Stereotactic brain radiation at [facility] October 28, 2022 a single fraction with10 [...] BID PPI PLAN: Plan Chronic conditions: * CAD/hypertension/pvxrivjyemwhhv-HXN-RGT-LPLB w/ 2.25 x 18 mm Biodivysio Stent [...] and greater than 100,000 * Aortic valve urguaytm-Wezo-Ax acute issues-Most recent echocardiogram shows stability * [...] Cosigner Signature (if applicable): CC: ~ Signed [facility] Work Phone: 1(210) 883-694506-28-2023 Progress note Author Benito Malcolm [facility] May 06, 2023 10:14am Note Date/Time May 06, 2023 10:1 4am [facility] Medical Records Department [address] [place] [address] Progress Note - Cardroom Plastic Card Grader 05/06/23 1012 MR#: [id number] Acct: [id number] Name: KENN ARSHAD Rep #:[id number] : 1955 67 From: Benito Malcolm DO PCP: Dr. Jacob Jennings DO Status:AD IN [facility] Assessment & Plan Assessment/Plan (1) SOB (shortness [...] medicationsas indicated. This note was generated with [employer] dictation software. It may contain incorrectwords, spelling, [...] patent and compressible segmentally. Ordering Physician: Khalif Qeuvedo Performed By: Figueroa Osorio T Rhythm Strip [...] affect normal Charges/Coding Visit Charges Inpatient E&M: 77933 Subs Hosp L2 05/06/23 1014 <Electronically signed by Benito Malcolm DO> Cosigner Signature (if applicable): CC: ~ Signed [facility] Work Phone: 1([phone]) 858-652006-27-2023 Progress note Author Michaelmatilde Chambers [facility] May 05, 2023 3:56pm Note Date/Time May 05, 2023 3:55 pm [facility] Medical Records Department [address] [place] [address] Progress Note - GI 05/05/23 1552 MR#: [id number] Acct: [id number] Name: KENN ARSHAD Rep #:[id number] : 1955 67 From: Michael Chambers DO PCP: Dr. Jacob Jennings, DO Status:AD M IN [place] [facility] UB310-0 Subjective Subjective Patient underwent a an upper [...] 1 g p.o. 3 times daily or ywuzqlwmkee905 mg p.o. 3 times daily for 4 weeks along with Protonix 40 mg twice a day. Continue to monitor H&H. Charges/Coding Visit Charges Inpatient E&M: 12888 Subs Hosp L2 05/05/23 1556 <Electronically signed by Michael Chambers DO> Cosigner Signature (if applicable): CC: ~ Signed [facility] Work Phone: 1([phone]) 150-467506-27-2023 Progress note Author Benito Malcolm [facility] May 05, 2023 12:27pm Note Date/Time May 05, 2023 10:0 3am [facility] Medical Records Department [address] [place] [address] Progress Note - Cardroom Plastic Card Grader 05/05/23 1002 MR#: [id number] Acct: [id number] Name: KENN ARSHAD Rep #:[id number] : 1955 67 From: Benito Malcolm DO PCP: Dr. Jacob Jennings, Status:AD M IN Location: [facility] GW445-4 Assessment & Plan Assessment/Plan (1) SOB (shortness [...] medicationsas indicated. This note was generated with [employer] dictation software. It may contain incorrectwords, spelling, [...] affect normal Charges/Coding Visit Charges Inpatient E&M: 30980 Subs Hosp L2 05/05/23 1227 <Electronically signed by Benito Malcolm DO> Cosigner Signature (if applicable): CC: ~ Signed [facility] Work Phone: 1(596) 891-456306-27-2023 Progress note Author Khalif Quevedo [facility] May 05, 2023 11:27am Note Date/Time May 05, 2023 8:12 am [facility] Medical Records Department [address] [place] [address] Progress Note - Hospitalist 05/05/23 08 MR#: [id number] Acct: [id number] Name: KENN ARSHAD Rep #:[id number] : 1955 67 From: Khalif Quevedo DO PCP: Dr. Jacob Jennings, DO Status:AD M IN Location: [place] 875303-1 Reason for Visit Reason for Visit: Diagnoses [...] agent May 07 ?July 30,2020 (5 cycles)? [place] but held in August 2021 due to ELANA.? Resumed November 26, 2021 Stereotactic brain radiation at [facility] October 28, 2022 a single fraction with10 [...] BID dosing PLAN: Plan Chronic conditions: * CAD/hypertension/btvamqfjaiskwa-PZG-DAN-LPLB w/ 2.25 x 18 mm Biodivysio Stent [...] and greater than 100,000 * Aortic valve xnlnuqji-Oatk-Yt acute issues-Most recent echocardiogram shows stability * COPD-PFTs show only mild large airway obstructive ventilatory defect-O2 dependent at baseline-No exertional hypoxemia noted on 6-minute walk test earlier this year-Continued outpatient follow-up with pulmonary medicine after discharge DVT prophylaxis -Fully anticoagulated with Eliquis CODE STATUS -Full code verified on admission Charges/Coding Visit Charges Inpatient E&M: 41500 Subs Hosp L2 05/05/23 1127 <Electronically signed by Khalif Quevedo DO> Cosigner Signature (if applicable): CC: ~ Signed [facility] Work Phone: 1([phone]) 654-309306-26-2023 Progress note Author Khalif Quevedo [facility] May 04, 2023 12:59pm Note Date/Time May 04, 2023 9:38 am [facility] Medical Records Department [address] [place] [address] Progress Note - Hospitalist 05/04/23927 MR#: [id number] Acct: [id number] Name: KENN ARSHAD Rep #:[id number] : 1955 67 From: Khalif Quevedo DO PCP: Dr. Jacob Jennings DO Status:AD M IN Location: [place] [address]-1 Reason for Visit Reason for Visit: Diagnoses [...] May 07 ?July 30,? 2020 (5 cycles)? [place] but held in August 2021 due to ELANA.? Resumed November 26, 2021 Stereotactic brain radiation at [facility] October 28, 2022 a single fraction with[address] MV [address] of chest at this time shows new findings in the lung With regards to brain metastasis patient has a ointment with neurosurgery on Thursday in [place] -Will likely need to be canceled and rescheduled -Holding Decadron while on IV Solu-Medrol (6) Anemia: PLAN: microcytic iron low, ferritin high, however. will change iron to Ferrous sulfate 325 QOD. PLAN: Plan Chronic conditions: * CAD/hypertension/gwzfodwjgjbcim-SZY-PAZ-LPLB w/ 2.25 x 18 mm Biodivysio Stent [...] and greater than 100,000 * Aortic valve nmidtgxt-Cums-Zs acute issues-Most recent echocardiogram shows stability * COPD-PFTs show only mild large airway obstructive ventilatory defect-O2 dependent at baseline-No exertional hypoxemia noted on 6-minute walk test earlier this year-Continued outpatient follow-up with pulmonary medicine after discharge DVT prophylaxis -Fully anticoagulated with Eliquis CODE STATUS -Full code verified on admission Charges/Coding Visit Charges Inpatient E&M: 73659 Subs Hosp L2 05/04/23 1259 <Electronically signed by Khalif Quevedo DO> Cosigner Signature (if applicable): CC: ~ Signed [facility] Work Phone: 1(307) 180-646206-26-2023 Consult note Author Michael Chambers [facility] May 04, 2023 12:30pm Note Date/Time May 04, 2023 11:4 3am [facility] Medical Records Department [address] [place] [address] Consultation - GI 05/03/23 1142 MR#: [id number] Acct: [id number] Name: KENN ARSHAD Rep #:[id number] : 1955 67 From: Michael Chambers DO PCP: Dr. Jacob Jennings DO Status:AD M IN Location: [place] [address] HPI Consult Data Date of Consult: 05/03/23 HPI Narrative Reason for Consultation: Anemia fecal occult positive stools HPI Narrative: KENN ARSHAD, is a 67 M who who presented to the emergency department at [facility] on 05/02/2023 complaining of shortness of breath.? [...] for management of acute blood loss anemia. [facility] Medical History (Updated 05/04/23 @ 12:[address] Rodriguez Friend, DO) Abnormal colonoscopy Adenocarcinoma of right lung Alcohol use Anemia Atherosclerotic heart disease of swinomish coronary artery without angina pectoris Brain metastasis [...] of 3. Charges/Coding Visit Charges Inpatient E&M: 96460 Init Hosp L3 05/04/23 1230 <Electronically signed by Michael Chambers DO> Cosigner Signature (if applicable): CC: JOSIE Dunne; Dr. Thaddeus Patel MD; Dr. Benito Malcolm DO; Dr. Jacob Jennings DO; Dr. Tara Mae DO; Dr. Tu Zhang MD; Dr. Jm Varner MD~ Signed [facility] Work Phone: 1([phone]) 504-622706-26-2023 Procedure [facility] 05-04-2023 Procedure [facility]06-26-2023 Progress note Author Benito Malcolm [facility] May 04, 2023 10:15am Note Date/Time May 04, 2023 8:55 am [facility] Medical Records Department [address] [place] [address] Progress Note - Cardroom Plastic Card Grader 05/04/23 0853 MR#: [id number] Acct: [id number] Name: KENN ARSHAD Rep #:[id number] : 1955 67 From: Benito Malcolm DO PCP: Dr. Jacob Jennings DO Status:AD M IN Location: [place] [address] Assessment & Plan Assessment/Plan (1) SOB (shortness [...] medicationsas indicated. This note was generated with [employer] software. It may contain incorrectwords, spelling, and [...] affect normal Charges/Coding Visit Charges Inpatient E&M: 01066 Subs Hosp L2 05/04/23 1015 <Electronically signed by Benito Malcolm DO> Cosigner Signature (if applicable): CC: ~ Signed [facility] Work Phone: 1(876) 204-999506-25-2023 Progress note Author Tara Mae [facility] May 03, 2023 12:31pm Note Date/Time May 03, 2023 12:1 5pm [facility] Medical Records Department [address] [place] [address] Progress Note - Hospitalist 05/03/23 1213 MR#: [id number] Acct: [id number] Name: KENN ARSHAD Rep #:[id number] : 1955 67 From: Tara Mae DO PCP: Dr. Jacob Jennings DO Status:AD M IN [facility] Reason for Visit Reason for Visit: Shortness [...] and no mottling Skin Narrative: Right port syuazysx-lclrk-bam, no drainage or erythema, scattered ecchymosis on [...] May 07 ?July 30,? 2020 (5 cycles)? DE but held in August 2021 due to ELANA.? Resumed November 26, 2021 -Stereotactic brain radiation at [facility] October 28, 2022 a single fraction with 10 MV photons. -CT of chest at this time shows new findings in the lung -Consult pulmonary medicine -With regards to brain metastasis patient has a ointment with neurosurgery on Thursday in [place] -Will likely need to be canceled and rescheduled -Holding Decadron while on IV Solu-Medrol -Most recent oncology notes reviewed CAD/hypertension/hyperlipidemia -QMB-DOV-MTUN w/ 2.25 x 18 mm Biodivysio Stent [...] on admission Charges/Coding Visit Charges Inpatient E&M: 05383 Subs Hosp L3 05/03/23 1231 <Electronically signed by Tara Mae DO> Cosigner Signature (if applicable): CC: ~ Signed [facility] Work Phone: 1(113) 706-708006-25-2023 Consult note Author Thaddeus Patel [facility] May 03, 2023 10:27am Note Date/Time May 03, 2023 7:57 am [facility] Medical Records Department [address] [place] [address] Consultation - Cardroom Plastic Card Grader 05/03/23 0740 MR#: [id number] Acct: [id number] Name: KENN ARSHAD Rep #:[id number] : 1955 67 From: Thaddeus Patel MD PCP: Dr. Jacob Jennings DO Status:AD M IN Location: [facility] YH154-7 Assessment & Plan Assessment/Plan (1) SOB (shortness [...] neurosurgeon forbrain metastasis next week. Patient's primary spinning operator is Dr. Malcolm and antonio here tomorrow. [...] medical history listed below, who presents to [facility] on 05/02/2023 secondary to a 2-week history [...] psychiatric and hematologic system unless stated above. [facility] Medical History Abnormal colonoscopy Adenocarcinoma of right lung Alcohol use Anemia Atherosclerotic heart disease of swinomish coronary artery without angina pectoris Brain metastasis [...] and no mottling Skin Narrative: Right port rxxczcig-dxgrm-zjq, no drainage or erythema, scattered ecchymosis on [...] EDT , Charges/Coding Visit Charges Inpatient E&M: 54330 Init Hosp L3 05/03/23 1027 <Electronically signed by Thaddeus Patel MD> Cosigner Signature (if applicable): CC: JOSIE Dunne; Dr. Thaddeus Patel MD; Dr. Benito Malcolm DO; Dr. Jacob Jennings DO; Dr. Tara Mae DO; Dr. Tu Zhang MD; Dr. Jm Varner MD~ Signed [facility] Work Phone: 1([phone]) 419-644706-24-2023 Discharge summary Author Indio Simon [facility] May 02, 2023 9:46pm Note Date/Time May 02, 2023 11:0 8am [facility] Medical Records Department [address] [place] [address] Emergency Department Summary 05/02/23 MR#: [id number] Acct: [id number] Name: KENN ARSHAD Rep #:[id number] : 1955 67 From: Indio Simon MD PCP: Dr. Jacob Jennings DO Status:AD M IN Location: [facility] MJ913-3 HPI History of Present Illness Chief Complaint: [...] several times his COPD is very mild. [facility] Medical History Abnormal colonoscopy Adenocarcinoma of right lung Alcohol use Anemia Atherosclerotic heart disease of swinomish coronary artery without angina pectoris Brain metastasis [...] Provider] - Disposition Disposition: Acute Care Hospital [facility] What to do if you have Problems For any increased pain, shortness of breath, bleeding, nausea or vomiting, chestpain, or any unexpected problems, contact your Primary Care Provider. Call [facility] ([phone]) or report to the closest Emergency Room. Call 911 if necessary. 05/02/239 <Electronically signed by Indio Simon MD> Cosigner Signature (if applicable): CC: Dr. Jacob Jennings DO ~ Signed [facility] Work Phone: 1(316) 208-944706-24-2023 History and physical note Author Tara Mae [facility] May 02, 2023 4:39pm Note Date/Time May 02, 2023 3:36 pm [facility] Medical Records Department [address] [place] [address] H&P Exam - Hospitalist 05/02/23 1530 MR#: [id number] Acct: [id number] Name: KENN ARSHAD Rep #:[id number] : 1955 67 From: Tara Mae DO PCP: Dr. Jacob Jennings, Status:AD M IN [place]: [facility] QC004-4 HPI - General General Date of Admission: 05/02/23 Date of Service: 05/02/23 Chief Complaint: SOB HPI Narrative KENN ARSHAD, is a 67 M who presented to the emergency department at [facility] on 05/02/2023 complaining of shortness of breath. [...] Levaquin and request for admission was made. [facility] Medical History Abnormal colonoscopy Adenocarcinoma of right lung Alcohol use Anemia Atherosclerotic heart disease of swinom[place] coronary artery without angina pectoris Brain metastasis [...] and no mottling Skin Narrative: Right port yynsjawi-retdk-ygq, no drainage or erythema, scattered ecchymosis on [...] agent May 07 ?July 30,2020 (5 cycles)? DE but held in August 2021 due to ELANA.? Resumed November 26, 2021 -Stereotactic brain radiation at [facility] October 28, 2022 a single fraction with 10 MV photons. -CT of chest at this time shows new findings in the lung -Consult pulmonary medicine -With regards to brain metastasis patient has a ointment with neurosurgery on Thursday in [place] -Will likely need to be canceled and rescheduled -Holding Decadron while on IV Solu-Medrol -Most recent oncology notes reviewed CAD/hypertension/hyperlipidemia -AER-ROB-LEIZ w/ 2.25 x 18 mm Biodivysio Stent [...] on admission Charges/Coding Visit Charges Inpatient E&M: 26361 Init Hosp L3 05/02/23 1639 <Electronically signed by Tara Mae DO> Cosigner Signature (if applicable): CC: Dr. Jacob Jennings DO; Dr. Tara Mae DO; Dr. Angela Rodriguez MD~ Signed [facility] Work Phone: 1([phone]) 408-913105-22-2023 Chief complaint+Reason for visit Narrative * Chief [...] HYPOXIA/SOB HYPOXIA/SOB 3 WKS - LABS - [facility] Hospital FU 1 WK - [...] adrenal gland Regional lymph node metastasis present [facility] Work Phone: 1(627) 229-832602-24-2023 Telephone encounter Note* Telephone Encounter - Janelle Montgomery - 01/02/2023 9:55 AM EST Orders pended for doctor signature [facility] [id number] Miscellaneous Notes* Telephone Encounter - Janelle Montgomery - 01/02/2023 9:55 AM EST Orders pended for doctor signature * Telephone Encounter - Monalisa Sanford MA - 12/31/2022 9:05 AM EST Faxed patient lab to [facility]. * Telephone Encounter - Monalisa Sanford MA - 12/31/2022 9:05 AM EST ----- Message from Jacob Jennings DO sent at 12/31/2022 8:28 AM EST ----- Send lipid orders to appropriate lab work in [place] where he acquires his draws from his port * Telephone Encounter - Janelle Montgomery - 12/31/2022 8:31 AM EST Orders pended for doctor signature documented in this encounterSElyria Memorial HospitalMggklc32-83-3842 Telephone encounter Note* Telephone Encounter - Celsa Yoder - 01/01/2023 3:54 PM EST Referral and orders pended for doctor's signature [facility], [id number] Miscellaneous Notes* Telephone Encounter - Celsa Yoder [...] remind him as well documented in this encounterSElyria Memorial HospitalEvxzhl89-74-5810 Telephone encounter Note* Telephone Encounter - Celsa [...] Call patient to remind him as well [facility], [id number] Telephone encounter Note* Telephone Encounter - Monalisa Sanford MA - 12/31/2022 9:05 AM EST Faxed patient lab to [facility]. [facility] [id number] Telephone encounter Note* Telephone Encounter - Monalisa Sanford MA - 12/31/2022 9:05 AM EST ----- Message from Jacob Jennings DO sent at 12/31/2022 8:28 AM EST ----- Send lipid orders to appropriate lab work in [place] where he acquires his draws from his port [place] [id number] Telephone encounter Note* Telephone Encounter - Janelle Montgomery - 12/31/2022 8:31 AM EST Orders pended for doctor signature [facility], [id number] History of Present illness Narrative* Jacob Jennings, DO - 12/31/2022 7:20 AM EST Images from the original note were not included. [facility] [address] [facility] [address] Visit type: Established Patient Reason for Visit: [...] lesion of face Comments: New onset, [facility] referral Hypercholesterolemia Comments: Stable, check Crestor Orders: - Lipid panel; Future - Lipid panel Adenosquamous carcinoma of lung, left (HCC) Comments: Noted, discussed abnormal MRI of the head and follow-up with oncology as directed in a few weeks. Coronary artery disease involving swinomish coronary artery of swinomish heart without angina pectoris Other orders - [...] Amairani Coronary artery disease Father age 50 [place] - smoker Coronary artery disease Brother Kaiden age 47 [place] Objective: BP 128/61 (BP Location: Left arm, [...] Posterior pulses are adequate documented in this [facility]02-22-2023 Instructions* Patient Instructions* Jacob Jennings DO - 12/31/2022 7:20 AM EST Make appt for face lesion with [facility] please documented in this [facility]02-21-2023 Procedure [facility]02-16-2023 Procedure [facility]01-09-2023 History of Present illness Narrative* Gaby Martinez APRN - ARASH - 11/17/2022 11:40 AM EST Images from the original note were not included. [address] [address] Dept: [phone] Dept Loc: [phone] Visit type: Established Patient Reason for Visit: [...] Dr. Mcguire, neg stress test 08/26 at [place] COPD (chronic obstructive pulmonary disease) (HCC) per [facility] (smoker) COVID-19 virus infection 10/2021 DDD (degenerative disc disease), cervical NSAID therapy Essential hypertension 1993 Ex-smoker for less than 1 year 03/2021 Family history of diabetes mellitus sister Gastric polyps 12/[address] Ramírez, [facility] also H/O colonoscopy 02/2019 [facility]- small polyp- due 2023 History of colon polyps 2000 [facility] History of renal carcinoma 07/[address] Tariq History of SCC (squamous cell carcinoma) of skin 2011 scalp - [facility] Hypercholesterolemia LDL PAD (peripheral artery disease) (HCC) [...] Right adrenal mets , Dr. Cuevas, [facility], [place] oncologist Social History Tobacco Use Smoking status: [...] Amairani Coronary artery disease Father age 50 [place] - smoker Coronary artery disease Brother Kaiden age 47 [place] Objective BP 138/78 (BP Location: Left arm, [...] Imaging/Testing: LEXI Sanchez NP documented in this [facility]01-09-2023 Instructions* Patient Instructions* LEXI Sanchez NP - 11/17/2022 11:40 AM EST Mucinex documented in this [facility]01-09-2023 Telephone encounter Note* Telephone Encounter - Merlene Andino RN - 11/17/2022 10:13 AM EST S: Patient spoke with [facility] nurse regarding coughing, SOB when he moves [...] and stillpresent when not coughing Protocols used: Mvjjk-ATLKV-OV [facility], [id number] Miscellaneous Notes* Telephone Encounter - Merlene Andino RN - 11/17/2022 10:13 AM EST S: Patient spoke with [facility] nurse regarding coughing, SOB when he moves [...] and stillpresent when not coughing Protocols used: Bqofv-CVJMK-RI documented in [facility]01-03-2023 Note Radiation Oncology Completion of Therapy Note Date: 11/11/2022 Kenn Arshad U#:[id number] : 1955 Referring Physician: PERCY TAO Diagnosis: [...] 10/28/2022 End Date: 10/28/2022 Elapsed Days: 0 [facility]avg[facility]ulr36-83-2917 Note RADIATION ONCOLOGY PROCEDURE NOTE NAME: Kenn Arshad U#: [id number] : 1955 DATE: 10/28/2022 DIAGNOSIS: C79.31 - [...] physician s prescription. The physician and medical record consultant were present throughout the set-up, verification, and [...] by Kinsey King MD 10/28/2022 1:38:46 PM [facility]Cjcpazmo25-54-3708 Hospital Discharge instructions* Discharge Instr - Activity* [...] at most local grocery stores, pharmacies, and [employer]. If you have any questions about your [...] and the need for follow-up with a physician/MEDICAL SERVICE REPRESENTATIVE/PA after discharge. Discussed the patient s personal [...] smoke. documented in this encounterSUMMA Work Phone: 1(552) 961-980707-09-2021 [facility] Discharge Summary and Transition Note Kenn [...] R-VATS, R-lobectomy), Stage IV RCC. Presented to [facility] ER 05/15 with complaints of disorientation with [...] - noted on CTA 05/17/21 done in [place] (see Care everywhere) ? # Troponinemia ?- suspect from accelerated BP ?- EKG with mild ST dep -->?trend trop, tele and EKG # CAD # Hyperlipidemia ?- home meds: cilostazol, enalapril, aspirin, statin ? # Lung adenocarcinoma, right (2020) # COPD ?- s/p R-VATS, RL lobectomy ?- on Inlyta (oral chemo) and Keytruda --> hold ?- [facility], Dr. Rodriguez ? # Stage IV renal cell cancer (R-kidney mass) ?- mets to lung ? # Hyperkalemia ?- recheck after IVF ? # ETOH abuse PROCEDURES: none CONSULTANTS: Neurology DISCHARGE MEDICATIONS: Significant Medication Changes: - STOP Kenn Mora Sr. Home Medication Instructions LUIS:[id number] Printed on:05/17/21 1108 Medication Information aspirin 81 [...] Complexity: follow up within 7-14 calendar days (07257) [x] Severe Complexity: follow up within 7 calendar days (44202) FOLLOW UP TESTING, PENDING RESULTS OR REFERRALS [...] above time frame. DI (more content not included)...[facility]07-09-2021 History of Present illness Narrative* Kinsey Lucio, PT - 05/17/2021 11:04 AM EDT Physical Therapy Facility/Department: [facility] Initial Assessment NAME: Kenn Arshad Sr. : 1955 Date of Service: 05/17/2021 Discharge Recommendations: Home with assist PRN Assessment Assessment: Pt admitted for Encephalopathy with associated gait abnormality and hypertension. 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 This PT wore PPE as per hospital policy Pt wore mask No Bed/chair alarm on prior to session and no alarm after session Kinsey Lucio, PT * Michelle Nuñez - 05/17/2021 9:19 AM EDT Nutrition rescreen completed. Chart reviewed. Patient to be monitored and followed by the diet water technician. Lalo Nuñez DT * Ginette Hurtado, SAMEER - 05/17/2021 7:41 AM EDT Speech Language Pathology Patient passed the Nursing Swallowing Screening and is on a Regular diet, Cardiac: Low fat, Low cholesterol. High Fiber, KIMMIE with Thin liquids. Completed speech orders as per stroke protocol. Ginette Hurtado MA, CCC-GRADES 6 THROUGH 8 TEACHER 05/17/2021 * Carine Morin MD - 05/17/2021 6:43 AM EDT Images from the original note were not included. [facility] Progress Note Kenn Linda Arshad Sr. : 1955(65 y.o.) Date: 05/17/21 Subjective: HPI The patient complains of :encephalopathy 65yo M with PMHx HTN, HLP, lung adenocarcinoma (s/p R-VATS, R-lobectomy), Stage IV RCC. Presented to [facility] ER 05/15 with complaints of disorientation with [...] - noted on CTA 05/17/21 done in [place] (see Care everywhere) # Troponinemia - suspect from accelerated BP - EKG with mild ST dep --> trend trop, tele and EKG # CAD # Hyperlipidemia - home meds: cilostazol, enalapril, aspirin, statin # Lung adenocarcinoma, right (2020) # COPD - s/p R-VATS, RL lobectomy - on Inlyta (oral chemo) and Keytruda --> hold - [facility] [place] [facility], Dr. Rodriguez # Stage IV [...] length 6AM-6PM please page: 6PM-6AM please page: [facility] * Silvina Jordan - 05/16/2021 [...] Ambulation Assistance: Independent Transfer Assistance: Independent Active Suspect Artist Supervisor: Yes Mode of Transportation: Car Occupation: Retired [...] Plan Plan Comment: Discharge OT. OutComes Score [facility] Daily Activity Inpatient How much help for putting on and taking off regular lower body clothing?: None How much help for Bathing?: None How much help for Toileting?: None How much help for putting on and taking off regular upper body clothing?: None How much help for taking care of personal grooming?: None How much help for eating meals?: None [facility] Inpatient Daily Activity Raw Score: 24 [facility] Inpatient ADL T-Scale Score : 57.54 ADL [...] original note were not included. [facility] Progress Note Kenn Arshad Sr. : 1955(65 y.o.) Date: 05/16/21 Subjective: HPI The patient complains of :encephalopathy 65yo M with PMHx HTN, HLP, lung adenocarcinoma (s/p R-VATS, R-lobectomy), Stage IV RCC. Presented to [facility] ER 05/15 with complaints of disorientation with [...] - noted on CTA 05/17/21 done in [place] (see Care everywhere) # Troponinemia - suspect from accelerated BP - EKG with mild ST dep --> trend trop, tele and EKG # CAD # Hyperlipidemia - home meds: cilostazol, enalapril, aspirin, statin # Lung adenocarcinoma, right (2020) # COPD - s/p R-VATS, RL lobectomy - on Inlyta (oral chemo) and Keytruda --> hold - [facility] [place] [facility], Dr. Rodriguez # Stage IV [...] length 6AM-6PM please page: 6PM-6AM please page: [facility] * Celsa Wu, LAB CLERK - SALES SERVICE COORDINATOR - 05/16/2021 7:36 AM EDT PROGRESS NOTE. NEUROLOGY Patient Name:Kenn Arshad . Patient : 1955 Acct: [id number] Date of Admission: 05/15/2021 Room/Bed: 1325/[facility] PCP: Jacob Jennings DO Patient location Telemetry [...] per day, Celsa Venkata Wu APRN - SALES SERVICE COORDINATOR, 10 mL at 05/15/212010 sodium chloride flush 0.9 % injection 5-40 mL, 5-40 mL, Intravenous, PRN, Celsalizzette Wu APRN -SALES SERVICE COORDINATOR 0.9 % sodium chloride infusion, 25 mL, Intravenous, PRN, Celsa KStella Wu LAB CLERK - SALES SERVICE COORDINATOR acetaminophen (TYLENOL) tablet 650 mg, 650 mg, Oral, Q4H PRN, 650 mg at 05/16/21 0015 OR acetaminophen (TYLENOL) suppository 650 mg, 650 mg, Rectal, Q4H PRN, Celsa Venkata Wu APRN - SALES SERVICE COORDINATOR aspirin EC tablet 81 mg, 81 mg, Oral, Daily, 81 mg at 05/15/212011 OR aspirin suppository 300 mg, 300 mg, Rectal, Daily, Celsa K. Gezzar, LAB CLERK - SALES SERVICE COORDINATOR enoxaparin (LOVENOX) injection 40 mg, 40 mg, Subcutaneous, Daily, Celsa Venkata Wu, LAB CLERK - SALES SERVICE COORDINATOR, 40mg at 05/15/212012 rosuvastatin (CRESTOR) tablet 40 mg, 40 mg, Oral, Nightly, Celsa Venkata Wingar, LAB CLERK - SALES SERVICE COORDINATOR, 40 mg at 05/15/212011 labetalol (NORMODYNE;TRANDATE) injection 10 mg, 10 mg, Intravenous, Q4H PRN, Celsa Venkata Wu, LAB CLERK - SALES SERVICE COORDINATOR hydrALAZINE (APRESOLINE) injection 20 mg, 20 mg, Intravenous, Q6H PRN, Celsa Venkata Wu, LAB CLERK - SALES SERVICE COORDINATOR perflutren lipid microspheres (DEFINITY) injection 1.65 mg, 1.5 mL, Intravenous, ONCE PRN, Celsa Venkata Wu, LAB CLERK - SALES SERVICE COORDINATOR sodium chloride flush 0.9 % injection 5-40 mL, 5-40 mL, Intravenous, PRN, Celsa Venkata Wu, LAB CLERK -SALES SERVICE COORDINATOR Continuous Infusions: sodium chloride sodium chloride 50 [...] Urine 6.5 5.0 - 8.0 NA Specific [place], Urine >1.030 (A) 1.005 - 1.030 NA [...] eGFR >90.0 >60 mL/min EGFR IF NonAfrican Trinidadian 88.9 >60 mL/min Calcium 8.3 (L) 8.4 [...] - On chemotherapy currently, receives care at [facility] Tobacco abuse - [place] on cessation Please be mindful of seizure [...] update her on above but went to [facility]. Will attempt to meet her here [...] ST to sign off. [facility] in this [facility] Work Phone: [phone]) 142-172205-07-2021 NoteDischarge Summary Kenn Celisjohn Martinez. : 1955 [...] a 65 y.o. male who presented to [facility] on 03/12/2021 For Right VATS, Right Lower [...] MEDICATIONS: Kenn Arshad Sr. Home Medication Instructions LUIS:[id number] Printed on:03/22/21 0681 Medication Information aspirin 81 MG EC tablet [...] weeks SIGNED: Evelio Hernandez MD 03/22/2021, 6:51 [facility]05-07-2021 Hospital Discharge instructions * Instructions* Evelio Hernandez [...] -Chest pain. -Abdominal distention. documented in this [facility] Work Phone: 1(641) 967-551005-07-2021 History of Present illness Narrative* Tara Lunsford, [facility] - 03/15/2021 11:51 AM EDT [facility] Respiratory Care Department Progress Note SpO2 [...] home Y/N = Yes * Halina Palma, LAB CLERK - SALES SERVICE COORDINATOR - 03/15/2021 10:00 AM EDT PAGING: The Acute Pain Service providers are available via Parents Journey. Please reference [facility] for Pain Management Provider ABLE BODIED TANKERMAN and direct all questions to the provider listed. Due to the current environment of [place] [address], PPE was worn for the duration of all face to face encounters including but not limited to an N95 in accordance with [facility] and hospital guidelines. 03/15/2021 Referring Physician: [...] Dr. Mcguire, neg stress test 08/26 at [place] COPD (chronic obstructive pulmonary disease) (HCC) per cxr (smoker) DDD (degenerative disc disease), cervical NSAID therapy Essential hypertension 1993 Family history of diabetes mellitus sister H/O colonoscopy 02/2019 [facility]- small polyp- due 2023 History of colon polyps 2000 [facility], 2013, 2018 History of renal carcinoma 07/2006 Dr. Tariq History of SCC (squamous cell carcinoma) of skin 2011 scalp - [facility] Hypercholesterolemia LDL Mass of right lung 01/2021 [...] SKIN CANCER DESTRUCTION 2011 squamous cell per [place] TOTAL NEPHRECTOMY Left 2005 [place] Family History Problem Relation Age of Onset Stroke Mother age 77 Coronary Art Dis Mother CABG Lung Cancer Mother Coronary Art Dis Father age 50 [place] - smoker Diabetes Sister Coronary Art Dis Sister CABG No Known Problems Brother Coronary Art Dis Brother age 47 [place] No Known Problems Sister No Known Problems [...] Scheduled APAP 2000mg 3000mg 3 g PRN CALENDER LET OFF OPERATOR (discontinued) 1.8mg 5.7 mg Oxycodone 40 mg Hydromorphone 0 mg Exparel Block Injection date: 03/12/21 Medication : Bupivacaine liposome injectable suspension Location: [facility] Side Effects: Denies nausea, headache, constipation, dysgeusia, pyrexia, hypoesthesia, muscle twitching, vomiting, pruritus, dizziness, hypertension, dyspepsia. Assessment / Pain Management Plan: 1. Acute Postsurgical chest pain dc Hydromorphone CALENDER LET OFF OPERATOR. Continue Oxycodone 5 - 10 mg po [...] Acute Pain Service providers are available via Parents Journey. Please reference [facility] for Pain Management Provider ABLE BODIED TANKERMAN and direct all questions to the provider [...] Dr. Mcguire, neg stress test 08/26 at [place] COPD (chronic obstructive pulmonary disease) (HCC) per cxr (smoker) DDD (degenerative disc disease), cervical NSAID therapy Essential hypertension 1993 Family history of diabetes mellitus sister H/O colonoscopy 02/2019 [facility]- small polyp- due 2023 History of colon polyps 2000 [facility], 2013, 2018 History of renal carcinoma 07/2006 Dr. Tariq History of SCC (squamous cell carcinoma) of skin 2011 scalp - [facility] Hypercholesterolemia LDL Mass of right lung 01/2021 Workup for lung nodule clinic pending PAD (peripheral artery disease) (HCC) 07/2019 Rt worse than Lt, pt defering angiogram rec per Dr. Eugene Prostate cancer screening 06/2020 Right carotid bruit 2014 <50% per repeat doppler, 12/26 Right inguinal hernia defers OR Smoker Past Surgical History Past Surgical History: Procedure Laterality Date COLONOSCOPY 2013 [facility] COLONOSCOPY 02/2019 [facility]- small polyp- due 2023 CORONARY ANGIOPLASTY WITH STENT PLACEMENT 2002 OTHER SURGICAL HISTORY 02/20/2021 EBUS/ENB OTHER SURGICAL HISTORY 03/12/2021 Right VATS thoracotomy SKIN CANCER DESTRUCTION 2012 squamous cell per [place] TOTAL NEPHRECTOMY Left 2005 [place] Family History Family History Problem Relation Age of Onset Stroke Mother age 77 Coronary Art Dis Mother CABG Lung Cancer Mother Coronary Art Dis Father age 50 [place] - smoker Diabetes Sister Coronary Art Dis Sister CABG No Known Problems Brother Coronary Art Dis Brother age 47 [place] No Known Problems Sister No Known Problems [...] This note may have been dictated using [employer] Medical Practice Edition 2.6 and/or [employer] Voice Recognition Feature. The document was proofread, however unrecognized voice recognition food services coordinator errors may be present. * Renetta Kelley [...] be monitored and followed by the diet water technician.HEIDI Fernandes * Jeannette Marroquin APRN - THANH - 03/14/2021 8:48 AM EDT PAGING: The Acute Pain Service providers are available via Parents Journey. Please reference [facility] for Pain Management Provider ABLE BODIED TANKERMAN and direct all questions to the provider listed. Due to the current environment of [place] [address], PPE was worn for the duration of all face to face encounters including but not limited to an N95 in accordance with [facility] and hospital guidelines. 03/14/2021 Referring Physician: [...] talkative and cooperative throughout exam, controlled with CALENDER LET OFF OPERATOR. Tolerating diet, denies n/v. Pt agreeable to [...] Dr. Mcguire, neg stress test 08/26 at [place] COPD (chronic obstructive pulmonary disease) (HCC) per cxr (smoker) DDD (degenerative disc disease), cervical NSAID therapy Essential hypertension 1993 Family history of diabetes mellitus sister H/O colonoscopy 02/2019 [facility]- small polyp- due 2023 History of colon polyps 2000 [facility], 2013, 2018 History of renal carcinoma 07/2006 Dr. Tariq History of SCC (squamous cell carcinoma) of skin 2011 scalp - [facility] Hypercholesterolemia LDL Mass of right lung 01/2021 Workup for lung nodule clinic pending PAD (peripheral artery disease) (HCC) 07/2019 Rt worse than Lt, pt defering angiogram rec per Dr. Eugene Prostate cancer screening 06/2020 Right carotid bruit 2014 <50% per repeat doppler, 12/26 Right inguinal hernia defers OR Smoker Past Surgical History: Procedure Laterality Date COLONOSCOPY 2013 [facility] COLONOSCOPY 02/2019 [place]- small polyp- due 2023 CORONARY ANGIOPLASTY WITH STENT PLACEMENT 2002 OTHER SURGICAL HISTORY 02/20/2021 EBUS/ENB OTHER SURGICAL HISTORY 03/12/2021 Right VATS thoracotomy SKIN CANCER DESTRUCTION 2012 squamous cell per [place] TOTAL NEPHRECTOMY Left 2005 [place] Family History Problem Relation Age of Onset Stroke Mother age 77 Coronary Art Dis Mother CABG Lung Cancer Mother Coronary Art Dis Father age 50 [place] - smoker Diabetes Sister Coronary Art Dis Sister CABG No Known Problems Brother Coronary Art Dis Brother age 47 [place] No Known Problems Sister No Known Problems [...] 0700 03/12/202103/13 Scheduled APAP 2000mg 3000mg PRN CALENDER LET OFF OPERATOR 1.8mg 5.7 mg Exparel Block Injection date: 03/12/21 Medication : Bupivacaine liposome injectable suspension Location: [facility] Side Effects: Denies nausea, headache, constipation, dysgeusia, pyrexia, hypoesthesia, muscle twitching, vomiting, pruritus, dizziness, hypertension, dyspepsia. Assessment / Pain Management Plan: 1. Acute Postsurgical chest pain dc Hydromorphone CALENDER LET OFF OPERATOR. Order Oxycodone 5 - 10 mg po [...] Acute Pain Service providers are available via Parents Journey. Please reference [facility] for Pain Management Provider ABLE BODIED TANKERMAN and direct all questions to the provider [...] Dr. Mcguire, neg stress test 08/26 at [place] COPD (chronic obstructive pulmonary disease) (HCC) per cxr (smoker) DDD (degenerative disc disease), cervical NSAID therapy Essential hypertension 1993 Family history of diabetes mellitus sister H/O colonoscopy 02/2019 [facility]- small polyp- due 2023 History of colon polyps 2000 [facility], 2013, 2018 History of renal carcinoma 07/2006 Dr. Tariq History of SCC (squamous cell carcinoma) of skin 2011 scalp - [facility] Hypercholesterolemia LDL Mass of right lung 01/2021 Workup for lung nodule clinic pending PAD (peripheral artery disease) (HCC) 07/2019 Rt worse than Lt, pt defering angiogram rec per Dr. Eugene Prostate cancer screening 06/2020 Right carotid bruit 2014 <50% per repeat doppler, 12/26 Right inguinal hernia defers OR Smoker Past Surgical History Past Surgical History: Procedure Laterality Date COLONOSCOPY 2013 [facility] COLONOSCOPY 02/2019 [facility]- small polyp- due 2023 CORONARY ANGIOPLASTY WITH STENT PLACEMENT 2002 OTHER SURGICAL HISTORY 02/20/2021 EBUS/ENB OTHER SURGICAL HISTORY 03/12/2021 Right VATS thoracotomy SKIN CANCER DESTRUCTION 2012 squamous cell per [place] TOTAL NEPHRECTOMY Left 2005 [place] Family History Family History Problem Relation Age of Onset Stroke Mother age 77 Coronary Art Dis Mother CABG Lung Cancer Mother Coronary Art Dis Father age 50 [place] - smoker Diabetes Sister Coronary Art Dis Sister CABG No Known Problems Brother Coronary Art Dis Brother age 47 [place] No Known Problems Sister No Known Problems [...] in sodium chloride 0.9 % 30 mL CALENDER LET OFF OPERATOR, , Intravenous, Continuous, LEXI Roach CNP, Rate [...] This note may have been dictated using [employer] Practice Edition 2.6 and/or [employer] Voice Recognition Feature. The document was proofread, however unrecognized voice recognition food services coordinator errors may be present. * Rustam Rebolledo, LAB CLERK - [facility] - 03/13/2021 7:30 AM EDT Images [...] cough, CT towater seal, pain controlled with CALENDER LET OFF OPERATOR POD #1: R Vats, LL lobectomy, RML wedge, RUL wedge No changes since seen in clinic. Past Medical History Past Medical History: Diagnosis Date Adenocarcinoma of right lung (HCC) 02/2021 rx pnd CAD (coronary artery disease) [address] Mcguire, neg stress test 08/26 at [place] COPD (chronic obstructive pulmonary disease) (HCC) per cxr (smoker) DDD (degenerative disc disease), cervical NSAID therapy Essential hypertension 1993 Family history of diabetes mellitus sister H/O colonoscopy 02/2019 [facility]- small polyp- due 2023 History of colon polyps 2000 [facility], 2013, 2018 History of renal carcinoma 07/2006 Dr. Tariq History of SCC (squamous cell carcinoma) of skin 2011 scalp - [facility] Hypercholesterolemia LDL Mass of right lung 01/2021 Workup for lung nodule clinic pending PAD (peripheral artery disease) (HCC) 07/2019 Rt worse than Lt, pt defering angiogram rec per Dr. Eugene Prostate cancer screening 06/2020 Right carotid bruit 2014 <50% per repeat doppler, 12/26 Right inguinal hernia defers OR Smoker Past Surgical History Past Surgical History: Procedure Laterality Date COLONOSCOPY 2013 [facility] COLONOSCOPY 02/2019 [facility]- small polyp- due [...] Mother Coronary Art Dis Father age 50 [place] - smoker Diabetes Sister Coronary Art Dis Sister CABG No Known Problems Brother Coronary Art Dis Brother age 47 [place] No Known Problems Sister No Known Problems [...] in sodium chloride 0.9 % 30 mL CALENDER LET OFF OPERATOR, , Intravenous, Continuous, LEXI Roach CNP, New [...] - C&DB poor effort - Pain continue CALENDER LET OFF OPERATOR - placed CT to water seal - [...] This note may have been dictated using [employer] Medical Practice Edition 2.6 and/or [employer] Voice Recognition Feature. The document was proofread, however unrecognized voice recognition food services coordinator errors may be present. * Jayla Hutson RN - 03/12/2021 5:10 PM EDT Pt arrived to PACU from OR. Pt ID verified. Monitors applied with alarms on. Vital signs stable. * Brandie Hare RN - 03/12/2021 10:45 AM EDT Called radiology for CXR. Waiting for response. * Brandie Hare RN - 03/12/2021 10:22 AM EDT EKG at patient bedside. documented in this [facility] Work Phone: [phone] Evaluation note* Diagnosis Onset Date Resolution Status [...] primary malignant neoplasm of left kidney chronic [facility] Work Phone: Consult note Author David Rm [facility] Note Date/Time March 24, 2025 4:09p m [facility] Medical Records Department [address] [place] [address] Counseling Note - Pharmacy 03/24/25 1608 MR#: [id number] Acct: [id number] Name: KENN ARSHAD Rep #:[id number] : 1955 69 From: David Rm PCP: Dr. Jacob Jennings, DO Status:AD M IN Y [place] [facility] [id number] [place] [facility] Service has performed discharge medication reconciliation [...] Signature (if applicable): Date CC: ~ Signed [facility] Work Phone: Discharge summary Author Evelio Hong [facility] Note Date/Time March 24, 2025 3:39p m [facility] Medical Records Department [address] [place] [id number] Instructions for Home/Discharge Instructions 03/24/25 1454 MR#: [id number] Acct: [id number] Name: KENN ARSHAD Rep #:[id number] : 1955 69 From: Evelio mayo MD [...] DO; Dr. Emmanuel Kaiser MD ~ Signed [facility] Work Phone: Discharge summary Author Antwan Pitts [facility] Note Date/Time August 22, 2025 1 0:39am [facility] Medical Records Department [address] [place] [address] Discharge Summary 08/22/25 1022 MR#: [id number] Acct: [id number] Name: KENN ARSHAD Rep #:[id number] : 1955 69 From: Antwan Pitts MD PCP: Dr. Jacob Jennings, DO Status:AD M IN Location: [place] [id number] Providers Date of Admission: 08/19/25 Primary [...] 78.8 H, Lymph % (Auto) 10.9 L, [place] % (Auto) 6.8, Eos % (Auto) 1.8, [...] Self Care Charges/Coding Visit Charges Inpatient E&M: 80395 Disch Hosp >30min 08/22/25 1039 <Electronically signed by Antwan Pitts MD> Cosigner Signature (if applicable): CC: Dr. Antwan Pitts MD; Dr. Jacob Jennings DO~ Signed [facility] Work Phone: Evaluation + Plan note No data available for this section [facility] Evaluation note* Diagnosis Adenosquamous carcinoma of lung, left (HCC)- Primary documented in this encounter [facility] Work Phone: Evaluation note* Diagnosis Ataxia- Primary Lack of coordination Hypertension, unspecified type Encephalopathy Encephalopathy, unspecified Vision loss Unspecified visual loss Aphasia Seizure (HCC) Other convulsions CAD (coronary artery disease) Coronary atherosclerosis of unspecified type of vessel, [place] or graft Hypercholesterolemia Pure hypercholesterolemia COPD (chronic [...] Resolution Status ELANA (acute kidney injury) [place] Cancer of lower lobe of right lung acute Cancer of right kidney acute Drug rash acute Itching acute 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 History of primary malignant neoplasm of left kidney chronic ELANA (acute kidney injury) [place] Cancer of lower lobe of right lung [...] of primary malignant neoplasm of left kidney [facility] Work Phone: Evaluation note* Diagnosis Onset [...] due t o chronic blood loss chronic [facility] Work Phone: Evaluation note* Diagnosis Onset [...] of left kidney chronic Brain metastasis acute [facility] Work Phone: Evaluation note* Diagnosis Onset [...] primary malignant neoplasm of left kidney chronic [facility] Work Phone: Evaluation note* Diagnosis Onset [...] remission acute SOB (shortness of breath) [place] Cancer of right kidney acute 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 Drug rash chronic Cancer of right kidney acute Encounter for immunotherapy acute 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 [facility] Work Phone: Evaluation note* Diagnosis Onset [...] remission acute SOB (shortness of breath) [place] Brain metastasis chronic Cancer of right kidney [...] chronic Regional lymph node metastasis present chronic [facility] Work Phone: Evaluation note* Diagnosis [...] remission acute SOB (shortness of breath) [place] Brain metastasis chronic Cancer of right kidney [...] chronic [facility] lymph [facility] Work Phone: Evaluation note* [...] remission acute SOB (shortness of breath) [place] Brain metastasis chronic Cancer of right kidney [...] placement July 172002 resolved Brain metastasis chronic [facility] Work Phone: Evaluation note* Diagnosis Onset Date Resolution Status Cancer of lower lobe of right lung chronic Hypoxia resolved Nicotine dependence, cigarettes, in remission acute SOB (shortness of breath) [place] Cancer of lower lobe of right lung [...] chronic Regional lymph node metastasis present chronic [facility] Work Phone: Evaluation note* Diagnosis Onset [...] metastasis chronic SOB (shortness of breath) [place] Brain metastasis chronic Cancer of lower lobe [...] emboli acute SOB (shortness of breath) [place] [facility] Work Phone: Evaluation note* Diagnosis Onset [...] metastasis chronic SOB (shortness of breath) [place] Brain metastasis chronic Cancer of lower lobe [...] Anemia acute Diabetes mellitus, type 2 [place] Duodenal ulcer acute GI bleed acute Hyperglycemia acute Hypoxemia acute Pneumonia acute Pneumonitis acute Pulmonary emboli acute SOB (shortness of breath) [place] COPD (chronic obstructive pulmonary disease) chronic 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 [facility] Work Phone: Evaluation note* Diagnosis PRES (posterior reversible encephalopathy syndrome)- Primary [facility] Diagnosis 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 [facility] Diagnosis 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- Primary [facility] Diagnosis 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- Primary [facility]* Diagnosis Onset Date Resolution [...] chronic Regional lymph node metastasis present chronic [facility] Work Phone: Evaluation note* Diagnosis Metastatic cancer to brain (HCC)- Primary Secondary malignant neoplasm of brain and spinal cord [facility] Diagnosis Onset Date Resolution Status [...] of lower lobe of right lung chronic [facility] Work Phone: Evaluation note* Diagnosis Onset [...] chronic Regional lymph node metastasis present chronic [facility] Work Phone: Evaluation note* Diagnosis 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 [facility] Diagnosis Onset Date Resolution Status Brain [...] chronic Regional lymph node metastasis present chronic [facility] Work Phone: Evaluation note* Diagnosis Metastatic cancer to brain (HCC) Secondary malignant neoplasm of brain and spinal cord [facility] Diagnosis Metastatic cancer to brain (HCC)- Primary Secondary malignant neoplasm of brain and spinal cord [facility] Diagnosis Epistaxis- Primary Skin tear of right upper arm without complication, initial encounter Upper respiratory tract infection, unspecified type [facility] Diagnosis Essential hypertension- Primary Unspecified essential hypertension 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) Obesity, morbid (HCC) Morbid obesity Seizure (HCC) Other convulsions Hypercholesterolemia Pure hypercholesterolemia Coronary artery disease involving swinomish coronary artery of sw[place]om[place] heart without angina pectoris History of colon polyps Right carotid bruit History of pulmonary embolism Personal history of venous thrombosis and embolism Prostate cancer screening Special screening for malignant neoplasm of prostate Chronic gastritis without bleeding, unspecified gastritis type [facility]* Diagnosis Colon cancer screening- Primary Special screening for malignant neoplasms, colon History of colon polyps [facility]* Diagnosis Onset Date Resolution [...] coronary artery stent placement July 172002 resolved [facility] Work Phone: Evaluation note* Diagnosis Onset [...] placement July 172002 resolved Cervical myelopathy acute [facility] Work Phone: Evaluation note* Diagnosis Metastatic cancer to brain (HCC) Secondary malignant neoplasm of brain and spinal cord [facility] Diagnosis Metastatic cancer to brain (HCC)- Primary Secondary malignant neoplasm of brain and spinal cord [facility] Diagnosis Onset Date Resolution Status Brain [...] chronic Regional lymph node metastasis present chronic [facility] Work Phone: Evaluation note* Diagnosis Onset [...] hypertension acute S/P cervical spinal fusion a [facility] Work Phone: Evaluation note* Diagnosis Essential hypertension- Primary Unspecified essential hypertension 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 Actinic keratosis Coronary artery disease involving swinom[place] coronary artery of sw[place] heart without angina pectoris Prostate cancer screening Special screening for malignant neoplasm of prostate 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) History of pulmonary embolus (PE) documented [facility] Diagnosis 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 [facility] Diagnosis Encounter for management of implanted device- Primary Fitting and adjustment of unspecified device [facility]* Diagnosis Metastatic cancer to brain (HCC) Secondary malignant neoplasm of brain and spinal cord [facility] Diagnosis Metastatic cancer to brain (HCC)- Primary 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 [facility] Diagnosis Skin infection- Primary Unspecified local infection of skin and subcutaneous tissue Coronary artery disease involving swinomish coronary artery of swinom[place] heart without angina pectoris 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) Inclusion cyst Sebaceous cyst documented [facility] this [facility] Diagnosis Essential hypertension- Primary Unspecified essential hypertension Adenocarcinoma of right lung (HCC) Hypercholesterolemia Pure hypercholesterolemia Seizure (HCC) Other convulsions History of pulmonary embolism Personal history of venous thrombosis and embolism Ex-smoker Personal history of tobacco use, presenting hazards to health Hypochromic microcytic anemia History of colon polyps Coronary artery disease involving swinom[place] coronary artery of sw[place] heart without angina pectoris documented in this [facility] Diagnosis Chronic obstructive pulmonary disease with acute exacerbation (HCC)- Primary documented in [facility]* Diagnosis Essential hypertension- Primary Unspecified essential hypertension Chronic obstructive pulmonary disease with acute exacerbation (HCC) Aortic stenosis, mild Bruit of right carotid artery Skin lesion of face Unspecified disorder of skin and subcutaneous tissue Hypercholesterolemia Pure hypercholesterolemia Adenosquamous carcinoma of lung, left (HCC) Coronary artery disease involving swinomish coronary artery of swinomish heart without angina pectoris documented in this [facility] Diagnosis Skin lesion of face- Primary Unspecified disorder of skin and subcutaneous tissue Basal cell carcinoma (BCC) of right cheek Bruit of right carotid artery documented in [facility]* Diagnosis Basal cell carcinoma (BCC) of right cheek Bruit of right carotid artery documented in this [facility]* Diagnosis 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- Primary [facility]* Diagnosis 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 documented [facility] Diagnosis Secondary malignant neoplasm of brain (HCC)- Primary Secondary malignant neoplasm of brain and spinal cord [facility] Diagnosis Acute non-recurrent frontal sinusitis- Primary Adverse effect of drug, subsequent encounter Chronic bronchitis, unspecified chronic bronchitis type (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) documented [facility] Diagnosis Nausea- Primary Nausea alone Chronic bronchitis, unspecified chronic bronchitis type (HCC) Hypochromic microcytic anemia History of bleeding peptic ulcer 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) History of pulmonary embolism Personal history of venous thrombosis and embolism documented in [facility] Diagnosis Chronic bronchitis, unspecified chronic bronchitis type (HCC)- Primary Adenosquamous carcinoma of lung, left (HCC) Chemotherapy induced diarrhea documented [facility]* Diagnosis Encounter for subsequent annual wellness visit (AWV) in Medicare patient- Primary Adenosquamous carcinoma of lung, left (HCC) Chronic bronchitis, unspecified chronic bronchitis type (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) History of pulmonary embolism Personal history of venous thrombosis and embolism Hypercholesterolemia Pure hypercholesterolemia Coronary artery disease involving swinom[place] coronary artery of sw[place] heart without angina pectoris Essential hypertension Unspecified essential hypertension History of renal carcinoma Cervical radiculopathy due to degenerative joint disease of spine Celiac disease Routine general medical examination at health care facility Routine general medical examination at a health care facility documented in this encounter [facility] Diagnosis 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- Primary [facility] this [facility]* Diagnosis 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 documented in this encounter [facility]* Diagnosis Secondary malignant neoplasm of brain (HCC)- Primary Secondary malignant neoplasm of brain and spinal cord documented in this [facility]* Diagnosis Sepsis, due to unspecified organism, unspecified whether acute organ dysfunction present (HCC)- Primary Cellulitis of right upper extremity Cat bite, initial encounter Immunocompromised state (HCC) Unspecified immunity deficiency Malignant neoplasm of kidney, unspecified laterality (HCC) documented in this encounter [facility]* Diagnosis Chronic bronchitis, unspecified chronic bronchitis [...] Unspecified essential hypertension [facility] instructionsAmbulatory Orders* Neurosurgery Location: None Selected * Radiation Oncology Location: None Selected [facility] Work Phone: Hospital Discharge instructions No data available for this section [facility] Progress note Author Angela Rodriguez [facility] Note Date/Time April 12, 2025 1:58p m [facility] [address] [address] OFFICE VISIT Date of Service: 04/12/25 1327 MR#: [id number] Acct: [id number] Name: KENN ARSHAD Rep #: [id number] : 1955 From: Angela stapleton MD Age/Sex: 69/M Location: [facility] Status: Signed HPI Subjective Date of Service [...] fossa April 16, 2023 MRI spectroscopy at [facility] Main campus: Impression: Spectroscopy and perfusion [...] May 07 ?July 30, 2021 (5 cycles) DE but held in August 2021 due to ELANA. Resumed November 26, 2021 with no recurrent. Held again January 2025 when he developed acute colitis. To resume March 13, 2025 * Stereotactic brain radiation at [facility] October 28, 2022 a single fraction with 10 MV photons. [facility] Medical History MRSA (methicillin resistant staph aureus) [...] Port-A-Cath in place Atherosclerotic heart disease of swinom[place] coronary artery without angina pectoris Hyperlipidemia Wears [...] Brain metastasis: Status: Chronic Comment: SBRT at [facility] November 2022 (8) Iron deficiency anemia [...] over the uppertrunk that responded to topical [id number] preparation). Keytruda held August 2021 due to acute kidney injury cause unclear (baseline creatinine 1.0, peak 1.9). 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 His creatinine [...] 2023 showed stability of disease in the RIVETER and no new lesions. 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, he is on watchful 4-elective imaging [...] sometime in 2024 disease. Angela Rodriguez MD Solar Energy Systems Engineer, [facility] Divisions of Medical Oncology & Hematology Department of Internal Medicine [place] [address] This note was generated using a voice [...] applicable) CC: Dr. Jacob Jennings, DO ~ [employer] Work Phone: Progress note Author Thien Sandoval [facility] Note Date/Time August 04, 2025 12:09pm [facility] [address] [place] [address] OFFICE VISIT Date of Service: 08/04/25 MR#: [id number] Acct: [id number] Name: KENN ARSHAD Rep #: [id number] : 1955 Provider: Dr. Edilson Sandoval MD [...] systolic. 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) Coding Level of Care Code Off vis,est,level [...] fallen in the past year?: No 08/04/25 0061 <Electronically signed by Thien Nava> Date _ Thien Sandoval MD Cosigner Signature: Date (if applicable) CC: ~ [employer] Work Phone: Progress note Author Verónica Meadows [facility] Note Date/Time August 16, 2025 12 :08pm [facility] [place] [address] OFFICE VISIT Date of Service: 08/16/25 1125 MR#: [id number] Acct: [id number] Name: KENN ARSHAD Rep #: [id number] : 1955 From: Verónica Leavitt DIAMOND GRINDER DIAMOND GRINDER-C Age/Sex: 69/M Location: [facility] Status: Signed HPI Subjective Date of Service [...] fossa April 16, 2023 MRI spectroscopy at [facility] Main campus: Impression: Spectroscopy and perfusion [...] May 07 ?July 30, 2021 (5 cycles) DE but held in August 2021 due to ELANA. Resumed November 26, 2021 with no recurrent. Held again January 2025 when he developed acute colitis. To resume March 13, 2025 * Stereotactic brain radiation at [facility] October 28, 2022 a single fraction [...] diet as advised by GI, no N/V/D. [facility] Medical History MRSA (methicillin resistant staph aureus) [...] Port-A-Cath in place Atherosclerotic heart disease of swinom[place] coronary artery without angina pectoris Hyperlipidemia Wears [...] Brain metastasis: Status: Chronic Comment: SBRT at [facility] November 2022 (8) Iron deficiency anemia [...] over the uppertrunk that responded to topical vdam-nec-zqyhtur preparation). Keytruda held August 2021 due to acute kidney injury cause unclear (baseline creatinine 1.0, peak 1.9). 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 His creatinine [...] 2023 showed stability of disease in the RIVETER and no new lesions. 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 MRI brain at [facility] later today, follow up with Dr. [...] Cosigner Signature: Date (if applicable) CC: ~ [employer] Work Phone: Reason for referral (narrative)* Consultation (Routine) - Pending Review Specialty Diagnoses / Procedures Referred By Colt kurtz Referred To Contact Otolaryngology Diagnoses Epistaxis Procedures DE OFFICE/OUTPATIENT [facility] 60 MINUTES Em Philip PA-C [address] [place] [address] Referral ID Status Reason Start Date Expiration Date Visits Requested Visits Authorized [id number] Pending Review Specialty Services Required 11/24/2023 11/23/2024 1 1 [facility] Consultation (Routine) - Pending Review Specialty Diagnoses / Procedures Referred By Contac t Referred To Contact Gastroenterology Diagnoses History of colon polyps Colon cancer screening Procedures DE OFFICE/OUTPATIENT NEW [facility] MDM 60 MINUTES Jacob Jennings, DO [address] [place] [address] Gaye Osei [address] [facility] [facility] [place] [address] Referral ID Status Reason Start Date Expiration Date Visits Requested Visits Authorized [id number] Pending Review Specialty Services Required 01/08/2024 01/07/2025 1 1 [facility] Consultation (Routine) - Pending Review Specialty Diagnoses / Procedures Referred By Contac t Referred To Contact Dermatology Diagnoses Basal cell carcinoma (BCC) of right cheek Procedures DE OFFICE/OUTPATIENT [facility] MDM 60-74 MINUTES Jacob Jennings DO [address] [place] [address] Lexus Carreno MD [address] [place] [address] Referral ID Status Reason Start Date Expiration Date Visits Requested Visits Authorized [id number] Pending Review Specialty Services Required 01/01/2023 01/01/2024 1 1 * Imaging (Routine) - Authorized Specialty Diagnoses / Procedures Referred By Contac t Referred To Contact Cardiology Diagnoses Bruit of right carotid artery Procedures Vascular US carotid artery duplex bilateral Jacob Jennings DO [address] [place] [address] Referral ID Status Reason Start Date Expiration Date Visits Requested Visits Authorized [id number] Authorized Perform Procedure 01/01/2023 06/30/2023 1 1 [facility] Consultation (Routine) - Pending Review Specialty Diagnoses / Procedures Referred By Shelliac t Referred To Contact Dermatology Diagnoses Basal cell carcinoma (BCC) of right cheek Procedures DE OFFICE/OUTPATIENT NEW [facility] MDM 60-74 MINUTES Jacob Jennings DO [address] [place] [address] Lexus Carreno MD [address] [facility] [address] [address] Referral ID Status Reason Start Date Expiration Date Visits Requested Visits Authorized [id number] Pending Review Specialty Services Required 01/02/2023 01/02/2024 1 1 * Imaging (Routine) - Pending Review Specialty Diagnoses / Procedures Referred By Shelliac t Referred To Contact Cardiology Diagnoses Bruit of right carotid artery Procedures Vascular US carotid artery duplex bilateral Jacob Jennings DO [address] [place] [address] Referral ID Status Reason Start Date Expiration Date Visits Requested Visits Authorized [id number] Pending Review Perform Procedure 01/02/2023 07/01/2023 1 1 [facility] Medications - Pending Review Specialty Diagnoses / Procedures Referred By Colt t Referred To Contact Jacob Jennings DO [address] [place] [address] Phone: tel: fax: Referral ID Status Reason Start Date Expiration Date V isits Requested Visits Authorized [id number] Pending Review 02/21/2025 08/20/2025 1 1 [facility] (narrative)No reason for referral information [facility]WJoint [facility] Work Phone: Reason for visit Narrative* MRI/CT (Routine) - Closed Specialty Diagnoses / Procedures Referred By Colt kutrz Referred To Contact MR IMAGING Diagnoses Secondary malignant neoplasm of brain (HCC) Procedures MRI BRAIN WO/W IVCON MRI BRAIN BRAIN STEM W/O W/CONTRAST MATERIAL Francois Acevedo MD [address] [facility] [place] [place] [address] Phone: tel: fax: [place] [address] Referral ID Status Reason Start Date Expiration Date V isits Requested Visits Authorized [id number] Closed Auto-Generate d Referral 11/18/2024 12/18/2025 1 1 [facility] Assessments Diagnosis Right carotid bruit Other symptoms involving cardiovascular system Diagnosis Smoker Tobacco use disorder Diagnosis Claudication of right lower extremity (HCC) Peripheral vascular disease, unspecified Diagnosis Lung mass Swelling, mass, or lump in chest Diagnosis Lung mass Swelling, mass, or lump in chest Advance Directives No Advanced Directives Records FoundDocuments on File Type Date Recorded 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 ACP-Advance Directive ACP-Power of Banana Grader Documents on File Type Date Recorded 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 ACP-Advance Directive ACP-Power of Banana Grader Documents on File Type Date Recorded 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 Advance Directives and Living Will Power of Banana Grader Latest Code Status on File Code Status [...] March 11, 2022 9: 55am Power of Banana Grader No March 11, 2022 9:55am Advance Directive Response Recorded Date/ Time Advance Directives on File Yes 2021 10:09am Name of Medical Power of Banana Grader Haylie August 12, 2022 10:09am Advance Directives Yes August 12, 2022 10:09am Living Will No August 12 10:09am Power of Banana Grader No August 12, 10:09am Advance Directive Response Recorded Date/ Time Advance Directives on File Yes Dece2021 10:15am Name of Medical Power of Banana Grader Haylie October 14, 2022 10:15am Advance Directives Yes October 14, 2022 10:15am Living Will No October 14 10:15am Power of Banana Grader No October 14, 2022 10:15am Advance Directive Response Recorded Date/ Time Advance Directives on File Yes Decem 2021 1:07pm Name of Medical Power of Banana Grader Haylie November 04, 2022 1:07pm Advance Directives Yes October 1:07pm Living Will No November 19 4:41pm Power of Banana Grader No November 19, 2022 4:41pm Advance Directive Response Recorded Date/ Time Advance Directives on File Yes Decem 2021 1:07pm Name of Medical Power of Banana Grader Haylie November 04, 2022 1:07pm Name of Medical Power of Banana Grader Haylie Celisstefany lam November 19, 2022 9:24pm Advance Directives Yes October 1:07pm Living Will Yes November 19 9:24pm Power of Banana Grader Yes November 19, 2022 9:24pm Advance Directive Response Recorded Date/ Time Advance Directives on File Yes Jose Manuel machuca 2022 10:00am Name of Medical Power of Banana Grader Haylie December 16, 2022 10:00am Advance Directives Yes December 16, 2022 10:00am Living Will Yes December 16 10:00am Power of Banana Grader Yes December 16, 2022 10:00am Name of Medical Power of Banana Grader Haylie Pandya n November 19, 2022 9:24pm Advance Directive Response Recorded Date/ Time Advance Directives on File Yes Jose Manuel [email or web address] 10:56am Name of Medical Power of Banana Grader Haylie January 06, 2023 10:56am Advance Directives Yes December 10:56am Living Will Yes January 06, 023 10:56am Power of Banana Grader Yes January 06, 2023 10:56am Name of Medical Power of Banana Grader Haylie Pandya n November 19, 2022 9:24pm Advance Directive Response Recorded Date/ Time Advance Directives on File Yes Jose Manuel 2022 11:56am Name of Medical Power of Banana Grader Haylie January 06, 2023 11:56am Advance Directives Yes December 11:56am Living Will Yes January 06, 023 11:56am Power of Banana Grader Yes January 06, 2023 11:56am Name of Medical Power of Banana Grader Haylie Pandya n November 19, 2022 10:24pm Advance Directive Response Recorded Date/ Time Advance Directives on File Yes March 172022 11:03am Name of Medical Power of Banana Grader Haylie March 17, 2023 11:03am Advance Directives Yes March 17, 2023 11:03am Living Will Yes March 17, 2023 11 :03am Power of Banana Grader Yes March 17, 2023 11:03am Name of Medical Power of Banana Grader Haylie Pandya n November 19, 2022 10:24pm Advance Directive Response Recorded Date/ Time Advance Directives on File Yes March 112022 10:45am Name of Medical Power of Banana Grader Haylie April 08, 2023 10:45am Name of Medical Power of Banana Grader March 19, 2023 4:10pm Advance Directives Yes April 08 10:45am Living Will No May 02, 2023 11:13am Power of Banana Grader No May 02 11:13am Advance Directive Response Recorded Date/ Time Advance Directives on File Yes March 112022 10:45am Name of Medical Power of Banana Grader Haylie April 08, 2023 10:45am Name of Medical Power of Banana Grader March 19, 2023 4:10pm Advance Directives Yes April 08 10:45am Living Will No May 02, 2023 4:57pm Power of Banana Grader No May 02 4:57pm Advance Directive Response Recorded Date/ Time Advance Directives on File Yes Augus t 2022 2:24pm Name of Medical Power of Banana Grader Haylie June 17, 2023 2:24pm Advance Directives Yes June 17, 023 2:24pm Living Will No June 17, 2023 2:24pm Power of Banana Grader No June 17 2:24pm Name of Medical Power of Banana Grader March 19, 2023 4:10pm Advance Directive Response Recorded Date/ Time Advance Directives on File Yes 2022 10:32am Name of Medical Power of Banana Grader Haylie August 26, 2023 10:32am Advance Directives Yes August 26, 2023 10:32am Living Will No August 26 10:32am Power of Banana Grader No August 26, 2023 10:32am Advance Directive Response Recorded Date/ Time Advance Directives on File Yes 2022 11:05am Name of Medical Power of Banana Grader Haylie October 07, 2023 11:05am Advance Directives Yes September 11:05am Living Will No October 07, 023 11:05am Power of Banana Grader No October 07, 2023 11:05am Advance Directive Response Recorded Date/ Time Advance Directives on File Yes 2022 11:05am Name of Medical Power of Banana Grader Haylie October 07, 2023 11:05am Advance Directives Yes September 11:05am Living Will No October 18 023 9:56am Power of Banana Grader No October 18, 2023 9:56am Advance Directive Response Recorded Date/ Time Advance Directives on File Yes 2023 12:35pm Name of Medical Power of Banana Grader Haylie December 30, 2023 12:35pm Advance Directives Yes December 12:35pm Living Will No December 30 024 12:35pm Power of Banana Grader No December 30, 2023 12:35pm Advance Directive Response Recorded Date/ Time Advance Directives on File Yes January 13, 2024 2:23pm Name of Medical Power of Banana Grader Haylie January 13, 2024 2:23pm Advance Directives Yes January 12 2:23pm Living Will No January 13, 2024 2:23pm Power of Banana Grader No January 12 2:23pm Advance Directive Response Recorded Date/ Time Advance Directives on File Yes March 02, 2024 11:52am Name of Medical Power of Banana Grader Haylie March 02, 2024 11:52am Advance Directives Yes March 02 024 11:52am Living Will No March 02, 2024 11:52am Power of Banana Grader No March 02 11:52am Advance Directive Response Recorded Date/ Time Advance Directives on File Yes March 07, 2024 9:55am Name of Medical Power of Banana Grader Haylie March 07, 2024 9:55am Advance Directives Yes March 07 9:55am Living Will No March 08, 2024 4:20pm Power of Banana Grader No March 08 4:20pm Advance Directive Response Recorded Date/ Time Advance Directives on File Yes 2024 12:19pm Living Will No December 21 025 12:19pm Do you have a Healthcare Power of Banana Grader? No December 21, 2024 12:19pm Name of Medical Power of Banana Grader Haylie December 21, 2024 12:19pm Living Will No December 14 11:58pm Do you have a Healthcare Power of Banana Grader? No December 14, 2024 11:58pm Living Will No January 07, 2025 3:24am Do you have a Healthcare Power of Banana Grader? No January 07, 2025 3:24am Living Will No January 10, 2025 5:41pm Do you have a Healthcare Power of Banana Grader? No January 10, 2025 5:41pm Do you have a Healthcare Power of Banana Grader? No March 21, 2025 10:38am Advance Directives Yes January 19 10:31am Advance Directive Response Recorded Date/ Time Advance Directives on File Yes Jose Manuel [email or web address] 12:19pm Living Will No December 21 12:19pm Do you have a Healthcare Power of Banana Grader? No December 21, 2024 12:19pm Name of Medical Power of Banana Grader Haylie December 21, 2024 12:19pm Living Will No December 14 11:58pm Do you have a Healthcare Power of Banana Grader? No December 14, 2024 11:58pm Living Will No January 07, 2025 3:24am Do you have a Healthcare Power of Banana Grader? No January 07, 2025 3:24am Living Will No January 10, 2025 5:41pm Do you have a Healthcare Power of Banana Grader? No January 10, 2025 5:41pm Do you have a Healthcare Power of Banana Grader? No March 21, 2025 5:55pm Advance Directives Yes January 19 10:31am Advance Directive Response Recorded Date/ Time Advance Directives on File Yes April 12, 2025 1:55pm Living Will No April 12, 2025 1 :55pm Do you have a Healthcare Power of Banana Grader? No April 12, 2025 1:55pm Name of Medical Power of Banana Grader Haylie April 12, 2025 1:55pm Advance Directives Yes April 12 1:55pm Living Will No December 14 11:58pm Do you have a Healthcare Power of Banana Grader? No December 14, 2024 11:58pm Living Will No January 07, 2025 3:24am Do you have a Healthcare Power of Banana Grader? No January 07, 2025 3:24am Living Will No January 10, 2025 5:41pm Do you have a Healthcare Power of Banana Grader? No January 10, 2025 5:41pm Do you have a Healthcare Power of Banana Grader? No March 21, 2025 5:55pm Advance Directive Response Recorded Date/ Time Advance Directives on File Yes April 12, 2025 1:55pm Living Will No April 12, 2025 1 :55pm Do you have a Healthcare Power of Banana Grader? No April 12, 2025 1:55pm Name of Medical Power of Banana Grader Haylie April 12, 2025 1:55pm Advance Directives Yes April 12 1:55pm Living Will No January 07, 2025 3:24am Do you have a Healthcare Power of Banana Grader? No January 07, 2025 3:24am Living Will No January 10, 2025 5:41pm Do you have a Healthcare Power of Banana Grader? No January 10, 2025 5:41pm Do you have a Healthcare Power of Banana Grader? No March 21, 2025 5:55pm Advance Directive Response Recorded Date/ Time Advance Directives on File Yes April 12, 2025 1:55pm Living Will No April 12, 2025 1 :55pm Do you have a Healthcare Power of Banana Grader? No April 12, 2025 1:55pm Name of Medical Power of Banana Grader Haylie April 12, 2025 1:55pm Advance Directives Yes April 12 1:55pm Do you have a Healthcare Power of Banana Grader? No March 21, 2025 5:55pm Advance Directive Response Recorded Date/ Time Living Will No May 25, 2024 11:42am Do you have a Healthcare Power of Banana Grader? No May 25, 2024 11:42am Advance Directives on File Yes May 24, 2025 11:42am Living Will No May 24, 2025 11:42am Do you have a Healthcare Power of Banana Grader? No May 24, 2025 11:42am Name of Medical Power of Banana Grader Haylie May 24, 2025 11:42am Advance Directives Yes May 24 11:42am Do you have a Healthcare Power of Banana Grader? No March 21, 2025 5:55pm Advance Directive Response Recorded Date/ Time Living Will No May 25, 2024 11:42am Do you have a Healthcare Power of Banana Grader? No May 25, 2024 11:42am Advance Directives on File Yes 2024 12:46pm Living Will No June 15, 2025 12:46pm Do you have a Healthcare Power of Banana Grader? No June 15, 2025 12:46pm Name of Medical Power of Banana Grader Haylie June 15, 2025 12:46pm Advance Directives Yes June 15 12:46pm Do you have a Healthcare Power of Banana Grader? No March 21, 2025 5:55pm Advance Directive Response Recorded Date/ Time Living Will No May 25, 2024 11:42am Do you have a Healthcare Power of Banana Grader? No May 25, 2024 11:42am Advance Directives on File Yes 2024 2:23pm Living Will No July 05 2:23pm Do you have a Healthcare Power of Banana Grader? No July 05, 2025 2:23pm Name of Medical Power of Banana Grader Haylie July 05, 2025 2:23pm Advance Directives Yes July 05, 2025 2:23pm Do you have a Healthcare Power of Banana Grader? No March 21, 2025 5:55pm Advance Directive Response Recorded Date/ Time Living Will No May 25, 2024 11:42am Do you have a Healthcare Power of Banana Grader? No May 25, 2024 11:42am Advance Directives on File Yes 2024 2:23pm Living Will No July 05 2:23pm Do you have a Healthcare Power of Banana Grader? No July 05, 2025 2:23pm Name of Medical Power of Banana Grader Haylie July 05, 2025 2:23pm Advance Directives Yes July 05, 2025 2:23pm Advance Directive Response Recorded Date/ Time Living Will No May 25, 2024 11:42am Do you have a Healthcare Power of Banana Grader? No May 25, 2024 11:42am Advance Directives on File Yes 2024 12:41pm Living Will No August 16 12:41pm Do you have a Healthcare Power of Banana Grader? No August 16, 2025 12:41pm Name of Medical Power of Banana Grader Haylie August 16, 2025 12:41pm Advance Directives Yes August 16, 2025 12:41pm Do you have a Healthcare Power of Banana Grader? No August 19, 2025 7:33pm Reason for Referral Status Reason Specialty Diagnoses / Procedures Referre d By Contact Referred To Contact Closed Radiology Diagnoses Smoker Procedures CT lung screen [Initial/Annual] Jacob Jennings, DO [address] [place] [address] Status Reason Specialty Diagnoses / Procedures Referre d By Contact Referred To Contact Open Radiology Diagnoses Claudication of right lower extremity (HCC) Procedures VL Arterial PVR Lower w Exercise Jacob Jennings, DO [address] [place] [address] Status Reason Specialty Diagnoses / Procedures Referre d By Contact Referred To Contact Open Radiology Diagnoses Lung mass Procedures PET CT SKULL BASE TO MID THIGH Jose Miguel Foster MD [address] [place] [address] Status Reason Specialty Diagnoses / Procedures Re ferred By Contact Referred To Contact Open Radiology Diagnoses PRES (posterior reversible encephalopathy syndrome) Seizure (HCC) Procedures MRI BRAIN W WO CONTRAST Esthela Garcia APRN - SALES SERVICE COORDINATOR [address] [place] [address] Specialty Diagnoses / Procedures Referred By Contac t Referred To Contact MR IMAGING Diagnoses 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 Procedures MRI BRAIN WO/W IVCON MRI BRAIN BRAIN STEM W/O W/CONTRAST MATERIAL Kesha Dey, LEXI.SALES SERVICE COORDINATOR [address] [facility] [place] [address] Mr Imaging Referral ID Status Reason Start Date Expiration Date V isits Requested Visits Authorized [id number] Closed Auto-Generate d Referral 05/29/2023 06/27/2024 1 1 Referral ID Status Reason Start Date Expiration Date Visits Requested Visits Authorized [id number] Authorized Auto-Generat ed Referral 06/09/2023 07/08/2024 1 1 Specialty Diagnoses / Procedures Referred By Contac t Referred To Contact MR IMAGING Diagnoses Metastatic cancer to brain (HCC) Procedures MRI BRAIN WO/W IVCON MRI BRAIN BRAIN STEM W/O W/CONTRAST MATERIAL Francois Acevedo MD [address] [facility] [place] [address] Mr Imaging [facility] Referral ID Status Reason Start Date Expiration Date Visits Requested Visits Authorized [id number] Authorized Auto-Generat ed Referral 08/07/2023 09/05/2024 1 1 Specialty Diagnoses / Procedures Referred By Contac t Referred To Contact MR IMAGING Diagnoses Metastatic cancer to brain (HCC) Procedures MRI BRAIN WO/W IVCON MRI BRAIN BRAIN STEM W/O W/CONTRAST MATERIAL Kesha Dey APRN.SALES SERVICE COORDINATOR [address] [facility] [place] [address] Mr Imaging [place] [address] Referral ID Status Reason Start Date Expiration Date Visits Requested Visits Authorized [id number] Pending Review Auto-Generat ed Referral 11/18/2024 1 1 Referral ID Status Reason Start Date Expiration Date V isits Requested Visits Authorized [id number] Closed Auto-Generate d Referral 11/17/2023 12/16/2024 1 1 Referral ID Status Reason Start Date Expiration Date Visits Requested Visits Authorized [id number] Authorized Auto-Generat ed Referral 02/19/2024 03/20/2025 1 1 Referral ID Status Reason Start Date Expiration Date V isits Requested Visits Authorized [id number] Closed Auto-Generate d Referral 02/19/2024 03/20/2025 1 1 Specialty Diagnoses / Procedures Referred By Contac t Referred To Contact MR IMAGING Diagnoses Metastatic cancer to brain (HCC) Secondary malignant neoplasm of brain (HCC) Procedures MRI BRAIN WO/W IVCON MRI BRAIN BRAIN STEM W/O W/CONTRAST MATERIAL Kesha Dey LAB CLERK.SALES SERVICE COORDINATOR [address] [facility] [place] [address] Mr Imaging [facility] Referral ID Status Reason Start Date Expiration Date Visits Requested Visits Authorized [id number] Authorized Auto-Generat ed Referral 05/20/2024 06/19/2025 1 1 Referral ID Status Reason Start Date Expiration Date V isits Requested Visits Authorized [id number] Closed Auto-Generate d Referral 05/20/2024 06/19/2025 1 1 Specialty Diagnoses / Procedures Referred By Contac t Referred To Contact MR IMAGING Diagnoses Secondary malignant neoplasm of brain (HCC) Procedures MRI BRAIN WO/W IVCON MRI BRAIN BRAIN STEM W/O W/CONTRAST MATERIAL Francois Acevedo MD [address] [facility] [place] [address] [place] [address] Referral ID Status Reason Start Date Expiration Date Visits Requested Visits Authorized [id number] Authorized Auto-Generat ed Referral 11/18/2024 12/18/2025 1 [...] PNEUMONIA HYPOXIA DUE TO COMMUNITY ACQURIE PNEUMONIA [facility] FU 3 WKS - LABS - [...] Complaint 3 WKS - LABS - KEYTR [facility] FU 1 WK - LABS - KEYTRUDA [...] 9:40am Regional lymph node metastasis present [facility] 2024 9:40am Anemia February 16, 2025 [...] 15 9:31am Regional lymph node metastasis present [facility] 2024 9:31am Dysphagia March 21, 2025 4:55p [...] 9:40am Regional lymph node metastasis present M [facility] 2024 9:40am Anemia February 16, 2025 [...] 15 9:31am Regional lymph node metastasis present [facility] 2024 9:31am Dysphagia March 21, 2025 4:55p [...] - LABS March 29, 2025 10:30 am [facility] March 30, 2025 10:02 am 3 [...] 9:40am Regional lymph node metastasis present [facility] 2024 9:40am Anemia February 16, 2025 [...] lymph node metastasis present [facility] 2024 12:29pm Chief Complaint Admit Date diarrhea [...] - LABS March 29, 2025 10:30 am [facility] March 30, 2025 10:02 am 3 [...] lymph node metastasis present [facility] 2024 12:29pm Brain metastasis May 02, 2025 [...] lymph node metastasis present [facility] 2024 9:32am Chief Complaint Admit Date 3WKS LABS [place] REVIEW CT February 01, 2025 9:40am [facility] February 16, 2025 12: 53pm 6 [...] - LABS March 29, 2025 10:30 am [facility] March 30, 2025 10:02 am 3 [...] lymph node metastasis present [facility] 2024 12:29pm Brain metastasis May 02, 2025 [...] lymph node metastasis present [facility] 2024 9:32am Brain metastasis May 24, 2025 [...] 9:38am Regional lymph node metastasis present [facility] 2024 9:38am Chief Complaint Admit Date [facility] February 16, 2025 12: 53pm 6 [...] - LABS March 29, 2025 10:30 am [facility] March 30, 2025 10:02 am 3 [...] 9:38am Regional lymph node metastasis present J [facility] 2024 9:38am COPD (chronic obstructive pulmonary dise ase) June 09, 2025 10:30am 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 June 09, 2025 10:30am Chief Complaint Admit Date [facility] February 16, 2025 12: 53pm 6 [...] - LABS March 29, 2025 10:30 am [facility] March 30, 2025 10:02 am 3 [...] 9:38am Regional lymph node metastasis present J [facility] 2024 9:38am COPD (chronic [...] - LABS March 29, 2025 10:30 am [facility] March 30, 2025 10:02 am 3 [...] LABS - KEYTRUDA - REVIEW SCANS A [facility] 2024 12:29pm hydration July 05, 2025 12 [...] lymph node metastasis present [facility] 2024 12:29pm Brain metastasis May 02, 2025 [...] 9:41am Regional lymph node metastasis present S [facility] 2024 9:41am Chief Complaint Admit Date 3 [...] lymph node metastasis present [facility] 2024 12:29pm Brain metastasis May 02, 2025 [...] lymph node metastasis present [facility] 2024 9:32am Brain metastasis May 24, 2025 [...] lymph node metastasis present [facility] 2024 9:32am Brain metastasis May 24, 2025 [...] 9:38am Regional lymph node metastasis present J [facility] 2024 9:38am COPD (chronic [...] Regional lymph node metastasis present A [facility] 2024 10:28am Anemia July 04, [...] BRAIN STEM W/O W/CONTRAST MATERIAL Kesha Dey APRN.SALES SERVICE COORDINATOR [address] [place] [address] Mr Imaging Referral ID Status Reason Start Date Expiration Date V isits Requested Visits Authorized [id number] Closed Auto-Generate d Referral 05/29/2023 06/27/2024 1 [...] W/CONTRAST MATERIAL Francois Acevedo MD [address] [place] [address] [place] [address] Referral ID Status Reason Start Date Expiration Date V isits Requested Visits Authorized [id number] Closed Auto-Generate d Referral 08/07/2023 09/05/2024 1 1 Reason Onset Date Comments Nose Problem 11/24/2023 Reason Comments Epistaxis (Nose Bleed) On Eliquis Reason Comments Follow-up 6 month med check Reason Onset Date Comments Referral 01/08/2024 Dr Osei Specialty Diagnoses / Procedures Referred By Contac t Referred To Contact MR IMAGING Diagnoses Metastatic cancer to brain (HCC) Procedures MRI BRAIN WO/W IVCON MRI BRAIN BRAIN STEM W/O W/CONTRAST MATERIAL Kesha Dey APRN.SALES SERVICE COORDINATOR [address] [facility] [place] [address] Mr Imaging [facility] Referral ID Status Reason Start Date Expiration Date V isits Requested Visits Authorized [id number] Closed Auto-Generate d Referral 11/17/2023 12/16/2024 1 1 Reason Onset Date Comments Med Refill 04/15/2024 Reason Comments 6 Month Follow-up Reason Comments Vascular Access Follow Up Referral ID Status Reason Start Date Expiration Date V isits Requested Visits Authorized [id number] Closed Auto-Generate d Referral 02/19/2024 03/20/2025 1 [...] BRAIN STEM W/O W/CONTRAST MATERIAL Kesha Dey, LEXI.SALES SERVICE COORDINATOR [address] [place] [address] [place] [address] Referral ID Status Reason Start Date Expiration Date V isits Requested Visits Authorized [id number] Closed Auto-Generate d Referral 05/20/2024 06/19/2025 1 [...] 5-40 mL, Intravenous, PRN, Line Care, Per Director Of Casework Department Request, Starting on Thu05/15/21 at 1553, For 72 hours, May use order for Line Care after every IV line use and Agitated Saline Bubble Study. Administration for Bubble Study per montessori teacher request for only. Remove 1 mL 0.9% [...] section and content) DATE CREATED AUTHOR [facility] DATE CREATED AUTHOR AUTHOR'S ORGANIZ ATION 08/31/2021 [facility] DATE CREATED AUTHOR AUTHOR'S ORGANIZ ATION 11/22/2021 [facility] DATE CREATED AUTHOR AUTHOR'S ORGANIZ ATION 12/10/2022 [facility] ([place]) DATE CREATED AUTHOR AUTHOR'S ORGANIZ ATION 10/21/2023 [facility] DATE CREATED AUTHOR AUTHOR'S ORGANIZ ATION 08/31/2025 [facility] DATE CREATED AUTHOR AUTHOR'S ORGANIZ ATION 09/02/2025 [facility] DATE CREATED AUTHOR AUTHOR'S ORGANIZ ATION 09/07/2025 [facility] DATE CREATED AUTHOR AUTHOR'S ORGANIZ ATION 09/16/2025 [facility] Goals (unrecognized section and [...] Provider Member Role: Radiation Oncologist Address: Address: [address] [place] [address] Radiation Oncology [place], [place] [address] Name: JACOB JENNINGS DO Member Role: Primary Care Physician Address: Address: [address] [place] [address] Care Team Related Persons Name: HAYLIE ARSHAD Address: Home [address] [place], [place] [id number] [address] Care Teams (unrecognized sec tion and [...] Provider, Referr ing Provider Active Verónica Meadows DIAMOND GRINDER, DIAMOND GRINDER-C Attending Provider Active Team Status: Inactive Member Role Status Dates Dr. Jacob Jennings DO Primary Care Provider Active Verónica Meadows DIAMOND GRINDER, DIAMOND GRINDER-C Attending Provider Active Team Status: Inactive Member [...] DO Primary Care Provider Active Verónica Meadows DIAMOND GRINDER, DIAMOND GRINDER-C Attending Provider, Referring Provider Active Team Status: [...] DO Primary Care Provider Active Verónica Meadows DIAMOND GRINDER, DIAMOND GRINDER-C Attending Provider, Referring Provider Active Team Status: Inactive Member Role Status Dates Dr. Jacob Jennings , DO Primary Care Provider, Referr ing Provider Active Monalisa Dunne DIAMOND GRINDER, DIAMOND GRINDER-C Attending Provider Active Team Status: Inactive Member [...] Varner MD Other Provider Active Monalisa Dunne DIAMOND GRINDER, DIAMOND GRINDER-C Other Provider Active Team Status: Active Member Role Status Dates Dr. Jacob Jennings , DO Primary Care Provider Active Dr. Indio Simon MD Emergency Provider Active Dr. Tara Mae , DO Admit Provider, Att ending Provider, Other Provider Active Dr. Thdadeus Patel MD Other Provider Active Dr. Benito Malcolm , DO Other Provider Active Dr. Tu Zhang MD Other Provider Active Dr. Jm Varner MD Other Provider Active Monalisa Dunne DIAMOND GRINDER, DIAMOND GRINDER-C Other Provider Active Team Status: Active Member [...] Varner MD Other Provider Active Monalisa Dunne DIAMOND GRINDER, DIAMOND GRINDER-C Other Provider Active Dr. Khalif Quevedo , [...] Varner MD Other Provider Active Monalisa Dunne DIAMOND GRINDER, DIAMOND GRINDER-C Other Provider Active Dr. Khalif Quevedo , [...] Varner MD Other Provider Active Monalisa Dunne DIAMOND GRINDER, DIAMOND GRINDER-C Other Provider Active Dr. Khalif Quevedo , [...] Varner MD Other Provider Active Monalisa Dunne DIAMOND GRINDER, DIAMOND GRINDER-C Other Provider Active Dr. Khalif Quevedo DO Attending Provider Active Line Construction Supervisor Relationship Specialty Start Date End Date Jacob Jennings DO [address] [place] [address] PCP - General 05/28/15 Line Construction Supervisor Relationship Specialty Start Date End Date Jacob Jennings DO [address] [place] [address] PCP - General 05/28/15 Line Construction Supervisor Relationship Specialty Start Date End Date Jacob Jennings DO [address] [place] [id number] PCP - General 05/28/15 Line Construction Supervisor Relationship Specialty Start Date End Date Jacob Jennings [address] [place] [address] PCP - General Family Medicine 12/20/18 Line Construction Supervisor Relationship Specialty Start Date End Date Jacob Jennings [address] [place], [place] [id number] PCP - General Family Medicine 12/20/18 Line Construction Supervisor Relationship Specialty Start Date End Date Jacob Jennings [address] [place] [address] PCP - General Family Medicine 12/20/18 Line Construction Supervisor Relationship Specialty Start Date End Date Jacob Jennings [address] [place], [place] [id number] PCP - General Family Medicine 12/20/18 Team [...] Varner MD Other Provider Active Monalisa Dunne DIAMOND GRINDER, DIAMOND GRINDER-C Other Provider Active Dr. Khalif Quevedo , [...] Varner MD Other Provider Active Monalisa Dunne DIAMOND GRINDER, DIAMOND GRINDER-C Other Provider Active Dr. Khalif Quevedo , [...] Varner MD Other Provider Active Monalisa Dunne DIAMOND GRINDER, DIAMOND GRINDER-C Other Provider Active Dr. Khalif Quevedo , [...] MD Attending Provider, Referrin g Provider Active Line [employer] Supervisor Relationship Specialty Start Date End Date Jacob Jennings [address] [place], [place] [id number] PCP - General Family Medicine 12/20/18 Line Construction Supervisor Relationship Specialty Start Date End Date Jacob Jennings DO [address], [place] [id number] PCP - General 05/28/15 Line Construction Supervisor Relationship Specialty Start Date End Date Jacob Jennings [address] [place] [address] PCP - General Family Medicine 12/20/18 Line Construction Supervisor Relationship Specialty Start Date End Date Jacob Jennings [address] [place] [address] PCP - General Family Medicine 12/20/18 Line Construction Supervisor Relationship Specialty Start Date End Date Jacob Jennings [address] [place] [address] PCP - General Family Medicine 12/20/18 Line Construction Supervisor Relationship Specialty Start Date End Date AnamikaharishJacob archuleta [address] [place] [address] PCP - General Family Medicine 12/20/18 Team Status: Inactive Member Role Status Dates Dr. Jacob Jennings , DO Primary Care Provider Active Verónica Meadows DIAMOND GRINDER, DIAMOND GRINDER-C Active Dr. Angela Rodriguez MD Attending Provider, [facility] Provider Active [employer] Supervisor Relationship Specialty Start Date End Date Jacob Jennings, [address] [place] [address] PCP - General Family Medicine 12/20/18 Team Status: Inactive Member Role Status Dates Dr. Jacob Jennings , DO Primary Care Provider Active Dr. Khalif Horan , DO Emergency Provider Active [employer] Supervisor Relationship Specialty Start Date End Date Jacob Jennings, [address] [place] [address] PCP - General Family Medicine 12/20/18 Line Construction Supervisor Relationship Specialty Start Date End Date Jacob Jennings DO [address] [place] [address] PCP - General 05/28/15 Line Construction Supervisor Relationship Specialty Start Date End Date Jacob Jennings DO [address] [place] [address] PCP - General 05/28/15 Line Construction Supervisor Relationship Specialty Start Date End Date Jacob Jennings DO [address] [place] [address] PCP - General 05/28/15 Line Construction Supervisor Relationship Specialty Start Date End Date Jacob Jennings DO [address] [place] [address] PCP - General 05/28/15 Team Status: Inactive Member Role Status Dates Dr. Jacob Jennings DO Primary Care Provider, Referr ing Provider Active Verónica Meadows DIAMOND GRINDER, DIAMOND GRINDER-C Active Dr. Lj Piña MD Attending Provider [...] Dr. Thien Sandoval MD Attending Provider Active [employer] Supervisor Relationship Specialty Start Date End Date Jacob Jennings DO [address] [place] [id number] PCP - General Family Medicine 12/20/18 Line Construction Supervisor Relationship Specialty Start Date End Date Jacob Jennings DO [address] [place] [address] PCP - General Family Medicine 12/20/18 Team [...] Dr. Antwan Pitts MD Attending Provider Active [employer] Supervisor Relationship Specialty Start Date End Date PiperpiperJacob DO [address] [place] [phone] PCP - General 05/28/15 Line Construction Supervisor Relationship Specialty Start Date End Date Jacob Jennings Sharda, DO [address] [place] [address] PCP - General 05/28/15 Line Construction Supervisor Relationship Specialty Start Date End Date Jacob Jennings Sharda, DO [address] [place], [place] [id number] PCP - General Family Medicine 12/20/18 Line Construction Supervisor Relationship Specialty Start Date End Date Jacob Jennings Sharda, [address] [place], [place] [id number] PCP - General Family Medicine 12/20/18 Line Construction Supervisor Relationship Specialty Start Date End Date Jacob Jennings Sharda, DO [address] [place], [place] [id number] PCP - General Family Medicine 12/20/18 Line Construction Supervisor Relationship Specialty Start Date End Date Jacob Jennings, DO [address] [place] [phone] PCP - General 05/28/15 Line Construction Supervisor Relationship Specialty Start Date End Date Jacob Jennings Sharda, DO [address] [place] [address] PCP - General 05/28/15 Line Construction Supervisor Relationship Specialty Start Date End Date Jacob Jennings Sharda, [address] [place] [phone] PCP - General 05/28/15 Line Construction Supervisor Relationship Specialty Start Date End Date Jacob Jennings, DO [address] [place] [phone] PCP - General 05/28/15 Line Construction Supervisor Relationship Specialty Start Date End Date Jacob Jennings DO [address] [place] [address] PCP - General Family Medicine 12/20/18 Line Construction Supervisor Relationship Specialty Start Date End Date Jacob Jennings [address] [place] [address] PCP - General 05/28/15 Line Construction Supervisor Relationship Specialty Start Date End Date Jacob Jenninsg, DO [address] [place] [address] PCP - General 05/28/15 Line Construction Supervisor Relationship Specialty Start Date End Date Jacob Jennings, DO [address] [place] [address] PCP - General 05/28/15 Line Construction Supervisor Relationship Specialty Start Date End Date Jacob Jennings, DO [address] [place] [address] PCP - General 05/28/15 Line Construction Supervisor Relationship Specialty Start Date End Date Jacob Jennings, DO [address] [place] [address] PCP - General 05/28/15 Line Construction Supervisor Relationship Specialty Start Date End Date Jacob Jennings, DO [address] [place] [address] PCP - General 05/28/15 Line Construction Supervisor Relationship Specialty Start Date End Date Jacob Jennings, [address] [place], [place] [phone] PCP - General Family Medicine 12/20/18 Line Construction Supervisor Relationship Specialty Start Date End Date AnamikaJacob alicea, DO [address] [facility] [address] PCP - General Family Medicine 12/20/18 Line Construction Supervisor Relationship Specialty Start Date End Date Jacob Jennings, DO [address] [place] [address] PCP - General Family Medicine 12/20/18 Line Construction Supervisor Relationship Specialty Start Date End Date Jacob Jennings, DO [address] [place], [place] [phone] PCP - General Family Medicine 12/20/18 Line Construction Supervisor Relationship Specialty Start Date End Date Jacob Jennings, DO [address] [place] [phone] PCP - General 05/28/15 Line Construction Supervisor Relationship Specialty Start Date End Date Jacob Jennings, DO [address] [place] [phone] PCP - General 05/28/15 Line Construction Supervisor Relationship Specialty Start Date End Date Jacob Jennings, DO [address] [place] [address] PCP - General 05/28/15 Line Construction Supervisor Relationship Specialty Start Date End Date Jacob Jennings, DO [address] [place] [phone] PCP - General 05/28/15 Line Construction Supervisor Relationship Specialty Start Date End Date AnamikawhitneyJacob DO [address] [place] [address] PCP - General 05/28/15 Line Construction Supervisor Relationship Specialty Start Date End Date Jacob Jennings DO [address] [place] [address] PCP - General 05/28/15 Line Construction Supervisor Relationship Specialty Start Date End Date DickJacob DO [address] [place] [address] PCP - General 05/28/15 Line Construction Supervisor Relationship Specialty Start Date End Date Jacob Jennings DO Sharda [address] [place] [address] PCP - General 05/28/15 Team Status: Active Member Role Status Dates Dr. Jacob Jennings DO Primary Care Provider Active Team Status: Inactive Member Role Status Dates Dr. Jacob Jennnigs DO Primary Care Provider Active Start: November [...] 2024 End: December 21, 2024 Verónica Meadows DIAMOND GRINDER, DIAMOND GRINDER-C Attending Provider Active Start: December 21, 2024 [...] Star t: January 13, 2025 Dr. Korey Satnamaria MD Other Provider Active Sta rt: January [...] Start : January 14, 2025 Dr. Antwan aRdford MD Other Provider Active Sta rt: January [...] Active Start: March 22, 2025 Dr. Khalif oHran , DO Emergency Provider Active Start: March [...] Attending Provider Active Start: March 23, 2025 Line Construction Supervisor Relationship Specialty Start Date End Date Jacob Jennings DO [address] [place] [address] PCP - General 05/28/15 Team [...] 2025 End: March 29, 2025 Verónica Meadows DIAMOND GRINDER, DIAMOND GRINDER-C Attending Provider Active Start: March 29, 2025 [...] Referring Provider Active Start: April 12, 2025 Line Construction Supervisor Relationship Specialty Start Date End Date Jacob Jennings DO [address] [place] [address] [address] [place] [phone] PCP - General 05/28/15 Team Status: Inactive Member Role Status Dates Dr. Jacob Jennings DO Primary Care Provider Active Start: May 02, 2025 End: May 02, 2025 Dr. Jacob Jennings DO Referring Provider Active Start: May 02, 2025 End: May 02, 2025 Verónica Meadows DIAMOND GRINDER, DIAMOND GRINDER-C Attending Provider Active Start: May 02, 2025 End: May 02, 2025 Team Status: Active Member Role Status Dates Dr. Jacob Jennings DO Primary Care Provider Active Start: May 02, 2025 Dr. Angela Rodriguez MD Attending Provider Active Start: May 02, 2025 Dr. Angela Rodriguez MD Referring Provider Active Start: May 02, 2025 Line Construction Supervisor Relationship Specialty Start Date End Date Jacob Jennings DO [address] [place] [address] PCP - General Family Medicine 12/20/18 Line Construction Supervisor Relationship Specialty Start Date End Date Jacob Jennings DO [address] [place], [place] [phone] PCP - General Family Medicine 12/20/18 Line Construction Supervisor Relationship Specialty Start Date End Date Jacob Jennings DO [address] [place], [place] [phone] PCP - General Family Medicine 12/20/18 Team [...] 2025 End: March 29, 2025 Verónica Meadows DIAMOND GRINDER, DIAMOND GRINDER-C Attending Provider Active Start: March 29, 2025 [...] 2025 End: May 02, 2025 Verónica Meadows DIAMOND GRINDER, DIAMOND GRINDER-C Attending Provider Active Start: May 02, 2025 [...] Inactive Member Role/Relationship Status Dates Dr. Jacob Jennigns DO Primary Care Provider Active Start: March [...] 2025 End: March 29, 2025 Verónica Meadows DIAMOND GRINDER, DIAMOND GRINDER-C Attending Provider Active Start: March 29, 2025 [...] End: May 02, 2025 Verónica Meadows NP, DIAMOND GRINDER-C Attending Provider Active Start: May 02, 2025 [...] 2025 End: June 09, 2025 Monalisa Dunne DIAMOND GRINDER, DIAMOND GRINDER-C Attending Provider Active Start: June 09, 2025 End: June 09, 2025 Team Status: Inactive Member Role/Relationship Status Dates Dr. Jacob Jennings DO Primary Care Provider Active Start: June 09, 2025 End: June 09, 2025 Dr. Jacob Jennings DO Referring Provider Active Start: June 09, 2025 End: June 09, 2025 Monalisa Dunne DIAMOND GRINDER, DIAMOND GRINDER-C Attending Provider Active Start: June 09, 2025 End: June 09, 2025 Team Status: Inactive Member Role/Relationship Status Dates Dr. Jacob Jennings DO Primary Care Provider Active Start: June 15, 2025 End: June 15, 2025 Dr. Jacob Jennings DO Referring Provider Active Start: June 15, 2025 End: June 15, 2025 Verónica Meadows DIAMOND GRINDER, DIAMOND GRINDER-C Attending Provider Active Start: June 15, 2025 [...] Status: Active Member Role/Relationship Status Dates Dr. aJcob Jennings [...] 2025 End: March 29, 2025 Verónica Meadows DIAMOND GRINDER, DIAMOND GRINDER-C Attending Provider Active Start: March 29, 2025 [...] End: May 02, 2025 Verónica Meadows NP, DIAMOND GRINDER-C Attending Provider Active Start: May 02, 2025 [...] 2025 End: June 09, 2025 Monalisa Dunne DIAMOND GRINDER, DIAMOND GRINDER-C Attending Provider Active Start: June 09, 2025 End: June 09, 2025 Team Status: Inactive Member Role/Relationship Status Dates Dr. Jacob Jennings DO Primary Care Provider Active Start: June 15, 2025 End: June 15, 2025 Dr. Jacob Jennings DO Referring Provider Active Start: June 15, 2025 End: June 15, 2025 Verónica Meadows DIAMOND GRINDER, DIAMOND GRINDER-C Attending Provider Active Start: June 15, 2025 [...] Provider Active Start: June 28, 2025 Dr. Anglea Rodriguez MD Referring Provider Active Start: June 28, 2025 Team Status: Inactive Member Role/Relationship Status Dates Dr. Jacbo Jennings DO Primary Care Provider Active Start: [...] End: March 29, 2025 Verónica Meadows NP, DIAMOND GRINDER-C Attending physician Active Start: March 29, 2025 [...] 2025 End: May 02, 2025 Verónica Meadows DIAMOND GRINDER, DIAMOND GRINDER-C Attending physician Active Start: May 02, 2025 [...] 2025 End: June 09, 2025 Monalisa Dunne DIAMOND GRINDER, DIAMOND GRINDER-C Attending physician Active Start: June 09, 2025 End: June 09, 2025 Team Status: Inactive Member Role/Relationship Status Dates Dr. Jacob Jennings DO Primary care physician Active Start: June 15, 2025 End: June 15, 2025 Dr. Jacob Jennings DO Referring Provider Active Start: June 15, 2025 End: June 15, 2025 Verónica Meadows DIAMOND GRINDER, DIAMOND GRINDER-C Attending physician Active Start: June 15, 2025 [...] Inactive Member Role/Relationship Status Dates Dr. Jacob Jnenings DO Primary care physician Active Start: July 26, 2025 End: July 26, 2025 Dr. Jacob Jennings DO Referring Provider Active Start: July 26, 2025 End: July 26, 2025 Verónica Meadows NP DIAMOND GRINDER-C Attending physician Active Start: July 26, 2025 [...] End: May 02, 2025 Verónica Meadows NP DIAMOND GRINDER-C Attending physician Active Start: May 02, 2025 [...] 2025 End: June 09, 2025 Monalisa Dunne DIAMOND GRINDER, DIAMOND GRINDER-C Attending physician Active Start: June 09, 2025 End: June 09, 2025 Team Status: Inactive Member Role/Relationship Status Dates Dr. Jacob Jennings DO Primary care physician Active Start: June 15, 2025 End: June 15, 2025 Dr. Jacob Jennings DO Referring Provider Active Start: June 15, 2025 End: June 15, 2025 Verónica Meadows DIAMOND GRINDER, DIAMOND GRINDER-C Attending physician Active Start: June 15, 2025 [...] End: July 26, 2025 Verónica Meadows NP, DIAMOND GRINDER-C Attending physician Active Start: July 26, 2025 [...] End: May 02, 2025 Verónica Meadows NP, DIAMOND GRINDER-C Attending physician Active Start: May 02, 2025 [...] 2025 End: June 09, 2025 Monalisa Dunne DIAMOND GRINDER, DIAMOND GRINDER-C Attending physician Active Start: June 09, 2025 End: June 09, 2025 Team Status: Inactive Member Role/Relationship Status Dates Dr. Jacob Jennings DO Primary care physician Active Start: June 15, 2025 End: June 15, 2025 Dr. Jacob Jennings DO Referring Provider Active Start: June 15, 2025 End: June 15, 2025 Verónica Meadows DIAMOND GRINDER, DIAMOND GRINDER-C Attending physician Active Start: June 15, 2025 [...] End: July 26, 2025 Verónica Meadows NP, DIAMOND GRINDER-C Attending physician Active Start: July 26, 2025 [...] 2025 End: August 16, 2025 Verónica Meadows DIAMOND GRINDER, DIAMOND GRINDER-C Attending physician Active Start: August 16, 2025 End: August 16, 2025 Team Status: Active Member Role/Relationship Status Dates Dr. Jacob Jennings DO Primary care physician Active Start: August 16, 2025 Dr. Angela Rodriguez MD Attending physician Active Start: August 16, 2025 Dr. Angela Rodriguez MD Referring Provider Active Start: August 16, 2025 Line Construction Supervisor Relationship Specialty Start Date End Date Jacob Jennings DO [address] [place] [phone] PCP - General 05/28/15 Team Status: Inactive [...] 2025 End: June 09, 2025 Monalisa Dunne DIAMOND GRINDER, DIAMOND GRINDER-C Attending physician Active Start: June 09, 2025 End: June 09, 2025 Team Status: Inactive Member Role/Relationship Status Dates Dr. Jacob Jennings DO Primary care physician Active Start: June 15, 2025 End: June 15, 2025 Dr. Jacob Jennings DO Referring Provider Active Start: June 15, 2025 End: June 15, 2025 Verónica Meadows DIAMOND GRINDER, DIAMOND GRINDER-C Attending physician Active Start: June 15, 2025 [...] 2025 End: July 26, 2025 Verónica Meadows DIAMOND GRINDER, DIAMOND GRINDER-C Attending physician Active Start: July 26, 2025 [...] 2025 End: August 16, 2025 Verónica Meadows DIAMOND GRINDER, DIAMOND GRINDER-C Attending physician Active Start: August 16, 2025 [...] August 24, 2025 End: August 24, 2025 Line Construction Supervisor Relationship Specialty Start Date End Date Jacob Jennings DO [address] [place] [address] PCP - General 05/28/15 Line Construction Supervisor Relationship Specialty Start Date End Date Dick Jacob Robin [address] [place] [phone] PCP - General 05/28/15 Line Construction Supervisor Relationship Specialty Start Date End Date Jacob Jennings DO [address] [address] [place] [phone] PCP - General 05/28/15 09/14/25 Eleuterio Hatch MD [address] [place] [address] [place], [place] [phone] PCP - General Family Medicine 09/15/25 Source Comments (unrecognize d section and content) In the event this informatio n is protected by the Federal Confidentiality of Alcohol and Drug Abuse Patient Records regulations: The Federal rules restrict any use of the information to criminally investigate or prosecute any alcohol or drug abuse patient.[facility] [place] the event this information is protected by the Federal Confidentiality of Alcohol and Drug Abuse Patient Records regulations: The Federal rules restrict any use of the information to criminally investigate or prosecute any alcohol or drug abuse patient.[facility] [place] the event this information is protected by the Federal Confidentiality of Alcohol and Drug Abuse Patient Records regulations: The Federal rules restrict any use of the information to criminally investigate or prosecute any alcohol or drug abuse patient.[facility] [place] the event this information is protected by the Federal Confidentiality of Alcohol and Drug Abuse Patient Records regulations: The Federal rules restrict any use of the information to criminally investigate or prosecute any alcohol or drug abuse patient.[facility] [place] the event this information is protected by the Federal Confidentiality of Alcohol and Drug Abuse Patient Records regulations: The Federal rules restrict any use of the information to criminally investigate or prosecute any alcohol or drug abuse patient.[facility] [place] the event this information is protected by the Federal Confidentiality of Alcohol and Drug Abuse Patient Records regulations: The Federal rules restrict any use of the information to criminally investigate or prosecute any alcohol or drug abuse patient.[facility] [place]In the event this information is protected by the Federal Confidentiality of Alcohol and Drug Abuse Patient Records regulations: The Federal rules restrict any use of the information to criminally investigate or prosecute any alcohol or drug abuse patient.[facility] [place] the event this information is protected by the Federal Confidentiality of Alcohol and Drug Abuse Patient Records regulations: The Federal rules restrict any use of the information to criminally investigate or prosecute any alcohol or drug abuse patient.[facility] [place] the event this information is protected by the Federal Confidentiality of Alcohol and Drug Abuse Patient Records regulations: The Federal rules restrict any use of the information to criminally investigate or prosecute any alcohol or drug abuse patient.[facility] [place] the event this information is protected by the Federal Confidentiality of Alcohol and Drug Abuse Patient Records regulations: The Federal rules restrict any use of the information to criminally investigate or prosecute any alcohol or drug abuse patient.[facility] [place]In the event this information is protected by the Federal Confidentiality of Alcohol and Drug Abuse Patient Records regulations: The Federal rules restrict any use of the information to criminally investigate or prosecute any alcohol or drug abuse patient.[facility] [place] the event this information is protected by the Federal Confidentiality of Alcohol and Drug Abuse Patient Records regulations: The Federal rules restrict any use of the information to criminally investigate or prosecute any alcohol or drug abuse patient.[facility] [place] the event this information is protected by the Federal Confidentiality of Alcohol and Drug Abuse Patient Records regulations: The Federal rules restrict any use of the information to criminally investigate or prosecute any alcohol or drug abuse patient.[facility] [place]In the event this information is protected by the Federal Confidentiality of Alcohol and Drug Abuse Patient Records regulations: The Federal rules restrict any use of the information to criminally investigate or prosecute any alcohol or drug abuse patient.[facility] [place]In the event this information is protected by the Federal Confidentiality of Alcohol and Drug Abuse Patient Records regulations: The Federal rules restrict any use of the information to criminally investigate or prosecute any alcohol or drug abuse patient.[facility] [place]In the event this information is protected by the Federal Confidentiality of Alcohol and Drug Abuse Patient Records regulations: The Federal rules restrict any use of the information to criminally investigate or prosecute any alcohol or drug abuse patient.[facility] [place]In the event this information is protected by the Federal Confidentiality of Alcohol and Drug Abuse Patient Records regulations: The Federal rules restrict any use of the information to criminally investigate or prosecute any alcohol or drug abuse patient.[facility] [place]In the event this information is protected by the Federal Confidentiality of Alcohol and Drug Abuse Patient Records regulations: The Federal rules restrict any use of the information to criminally investigate or prosecute any alcohol or drug abuse patient.[facility] [place]In the event this information is protected by the Federal Confidentiality of Alcohol and Drug Abuse Patient Records regulations: The Federal rules restrict any use of the information to criminally investigate or prosecute any alcohol or drug abuse patient.[facility] [place]In the event this information is protected by the Federal Confidentiality of Alcohol and Drug Abuse Patient Records regulations: The Federal rules restrict any use of the information to criminally investigate or prosecute any alcohol or drug abuse patient.[facility] [place]In the event this information is protected by the Federal Confidentiality of Alcohol and Drug Abuse Patient Records regulations: The Federal rules restrict any use of the information to criminally investigate or prosecute any alcohol or drug abuse patient.[facility] [place] the event this information is protected by the Federal Confidentiality of Alcohol and Drug Abuse Patient Records regulations: The Federal rules restrict any use of the information to criminally investigate or prosecute any alcohol or drug abuse patient.[facility] [place]In the event this information is protected by the Federal Confidentiality of Alcohol and Drug Abuse Patient Records regulations: The Federal rules restrict any use of the information to criminally investigate or prosecute any alcohol or drug abuse patient.[facility] [place] the event this information is protected by the Federal Confidentiality of Alcohol and Drug Abuse Patient Records regulations: The Federal rules restrict any use of the information to criminally investigate or prosecute any alcohol or drug abuse patient.[facility] [place] the event this information is protected by the Federal Confidentiality of Alcohol and Drug Abuse Patient Records regulations: The Federal rules restrict any use of the information to criminally investigate or prosecute any alcohol or drug abuse patient.[facility] [place]In the event this information is protected by the Federal Confidentiality of Alcohol and Drug Abuse Patient Records regulations: The Federal rules restrict any use of the information to criminally investigate or prosecute any alcohol or drug abuse patient.[facility] [place]In the event this information is protected by the Federal Confidentiality of Alcohol and Drug Abuse Patient Records regulations: The Federal rules restrict any use of the information to criminally investigate or prosecute any alcohol or drug abuse patient.[facility] [place]In the event this information is protected by the Federal Confidentiality of Alcohol and Drug Abuse Patient Records regulations: The Federal rules restrict any use of the information to criminally investigate or prosecute any alcohol or drug abuse patient.[facility] [place]In the event this information is protected by the [facility] Confidentiality of Alcohol and Drug Abuse Patient Records regulations: The Federal rules restrict any use of the information to criminally investigate or prosecute any alcohol or drug abuse patient.[facility] [place]In the event this information is protected by the Federal Confidentiality of Alcohol and Drug Abuse Patient Records regulations: The Federal rules restrict any use of the information to criminally investigate or prosecute any alcohol or drug abuse patient.[facility] [place] FOR RECORDS PERTAINING TO PATIENTS WHO ARE [...] BE BASED ON THE PRIMARY CLINICAL RECORDS. [facility]. provides no warranty or guarantee of the accuracy or completeness of information in this document.
== END | disposition home or self-care (01) ==
PROVIDERS: PCP Family Medicine; Referring Provider Internal Medicine Hematology & Oncology; Visit Provider Internal Medicine Hematology & Oncology
DX: C78.01 Secondary malignant neoplasm of right lung (principal); C79.71 Secondary malignant neoplasm of right adrenal gland; C79.31 Secondary malignant neoplasm of brain; C79.51 Secondary malignant neoplasm of bone; C77.9 Secondary and unspecified malignant neoplasm of lymph node, unspecified; Z85.528 Personal history of other malignant neoplasm of kidney
CPT/HCPCS: 72157; 72158; 96523; A9575